=== PATIENT | male | born 1950 | race Caucasian/White ===

== ENCOUNTER 2019-05-11 16:21 | Outpatient (REF) | payer BC, MEDICARE, SELFPAY ==
[2019-05-11 21:08] LABS: HCT 42.4 % (40.0-50.0); HGB 14.6 g/dL (13.5-17.5); Mean Corp. HGB Concentration 34.4 g/dL (32.0-36.0); Mean Corpuscular Hemoglobin 32.2 pg (27.0-33.0); Mean Corpuscular Volume 93.6 fL (80-95); Mean Platelet Volume 12.3 fL (8.0-11.0); RBC 4.53 m/cumm (4.50-6.00); RBC Distribution Width 12.3 % (11.8-14.1); White Blood Cell Count 7.28 k/cumm (4.4-10.8)
[2019-05-11 21:28] LABS: ALT 26 U/L (12-78); AST 40 U/L (15-37); Albumin 3.9 g/dL (3.4-5.0); Alkaline Phosphatase 85 U/L (46-116); Anion Gap 8.1 mmol/L (3-11); BUN 19 mg/dL (7-18); Bilirubin, Total 0.7 mg/dL (0.2-1.0); CO2 27.9 mmol/L (21.0-32.0); CREATININE 1.16 mg/dL (0.70-1.30); Calcium 9.4 mg/dL (8.5-10.1); Chloride 105 mmol/L (98-107); Glucose 103 mg/dL (70-100); Potassium 4.2 mmol/L (3.5-5.1); Sodium 141 mmol/L (136-145); TSH (W/Ref FT4) 1.55 uIU/mL (0.358-3.74); Total Protein 7.1 g/dL (6.4-8.2)
[2019-05-11 22:44] LABS: Platelet Count 96 x1000/uL (130-400)
== END 2019-05-11 16:41 ==
LOC: NCHCN 16:21
PROVIDERS: PCP Family Medicine; Visit Provider Family Medicine
DX: E03.9 Hypothyroidism, unspecified (principal); D69.6 Thrombocytopenia, unspecified; K76.0 Fatty (change of) liver, not elsewhere classified
CPT/HCPCS: 80053; 85027; 84443

== ENCOUNTER 2019-07-25 15:56 | Outpatient (REF) | payer BC, MEDICARE, SELFPAY ==
[2019-07-25 21:42] LABS: HCT 40.1 % (40.0-50.0); HGB 13.8 g/dL (13.5-17.5); Mean Corp. HGB Concentration 34.4 g/dL (32.0-36.0); Mean Corpuscular Hemoglobin 32.5 pg (27.0-33.0); Mean Corpuscular Volume 94.6 fL (80-95); Mean Platelet Volume 12.6 fL (8.0-11.0); RBC 4.24 m/cumm (4.50-6.00); White Blood Cell Count 4.72 k/cumm (4.4-10.8)
[2019-07-25 22:15] LABS: Platelet Count 83 x1000/uL (130-400)
[2019-07-25 22:16] LABS: ALT 24 U/L (16-63); AST 38 U/L (15-37); Albumin 3.7 g/dL (3.4-5.0); Alkaline Phosphatase 98 U/L (46-116); BUN 23 mg/dL (7-18); Bilirubin, Total 0.6 mg/dL (0.2-1.0); CREATININE 1.17 mg/dL (0.70-1.30); Chloride 106 mmol/L (98-107); Glucose 106 mg/dL (70-100); Magnesium 1.9 mg/dL (1.8-2.4); Potassium 4.6 mmol/L (3.5-5.1); Sodium 141 mmol/L (136-145); TSH (W/Ref FT4) 1.35 uIU/mL (0.36-3.74)
[2019-07-27 10:26] LABS: PSA, Screening 1.2 ng/ml (0-4.5)
== END 2019-07-25 16:16 ==
LOC: NCHCN 15:56
PROVIDERS: PCP Family Medicine; Visit Provider Family Medicine
DX: Z00.00 Encounter for general adult medical examination without abnormal findings (principal); E03.9 Hypothyroidism, unspecified; E78.5 Hyperlipidemia, unspecified; I48.0 Paroxysmal atrial fibrillation; I10 Essential (primary) hypertension; Z12.5 Encounter for screening for malignant neoplasm of prostate
CPT/HCPCS: 80053; 84153; 85027; 83735; 84443

== ENCOUNTER 2020-03-06 09:48 | Outpatient (REF) | payer BC, MEDICARE, SELFPAY ==
[2020-03-06 21:14] LABS: HCT 46.2 % (40.0-50.0); HGB 15.2 g/dL (13.5-17.5); Mean Corp. HGB Concentration 32.9 g/dL (32.0-36.0); Mean Corpuscular Volume 91.1 fL (80-95); Mean Platelet Volume 13.3 fL (8.0-11.0); Platelet Count 143 x1000/uL (130-400); RBC 5.07 m/cumm (4.50-6.00); RBC Distribution Width 13.1 % (11.8-14.1)
[2020-03-06 21:24] LABS: INR 1.6 (0.9-1.1); Prothrombin Time 15.5 sec (9.3-11.0)
[2020-03-06 21:28] LABS: ALT 22 U/L (16-63); AST 39 U/L (15-37); Alkaline Phosphatase 101 U/L (46-116); Anion Gap 3.8 mmol/L (3-11); BUN 21 mg/dL (7-18); Bilirubin, Total 0.5 mg/dL (0.2-1.0); CO2 33.2 mmol/L (21.0-32.0); CREATININE 1.27 mg/dL (0.70-1.30); Calcium 9.3 mg/dL (8.5-10.1); Calculated LDL 92 mg/dL (<100); Chloride 104 mmol/L (98-107); Cholesterol 156 mg/dL (<200); Estimated GFR 56.57 (mL/min/1.73m2); Glucose 81 mg/dL (74-106); HDL Cholesterol 45 mg/dL (40-60); Potassium 4.3 mmol/L (3.5-5.1); Sodium 141 mmol/L (136-145); TSH (W/Ref FT4) 1.62 uIU/mL (0.36-3.74); Total Protein 7.5 g/dL (6.4-8.2); Triglyceride 98 mg/dL (<150)
== END 2020-03-06 10:08 ==
LOC: NCHCN 09:48
PROVIDERS: PCP Family Medicine; Visit Provider Family Medicine
DX: D69.6 Thrombocytopenia, unspecified (principal); I10 Essential (primary) hypertension; E03.9 Hypothyroidism, unspecified; E78.5 Hyperlipidemia, unspecified; Z51.81 Encounter for therapeutic drug level monitoring; N20.0 Calculus of kidney; K76.0 Fatty (change of) liver, not elsewhere classified; I48.0 Paroxysmal atrial fibrillation
CPT/HCPCS: 80053; 80061; 85027; 84443; 85610

== ENCOUNTER 2021-05-19 14:07 | Outpatient (REF) | payer MEDICARE, BC, SELFPAY ==
[2021-05-22 14:35] LABS: 2-Hydroxy Ethyl Flurazepam Not Detected ng/mL (Cutoff: 10); 3,4-methylenedioxyamphetamine Not Detected ng/mL (Cutoff: 100); 3,4-methylenedioxyethylampheta Not Detected ng/mL (Cutoff: 100); 3,4-methylenedioxymethamphetam Not Detected ng/mL (Cutoff: 100); 6-monoacetylmorphine Not Detected ng/mL (Cutoff: 25); Alpha-Hydroxy Midazolam Not Detected ng/mL (Cutoff: 10); Alpha-Hydroxy Triazolam Not Detected ng/mL (Cutoff: 10); Alpha-Hydroxyalprazolam Not Detected ng/mL (Cutoff: 10); Alpha-OH-alprazolam Glucuronid Not Detected ng/mL (Cutoff: 50); Alprazolam Not Detected ng/mL (Cutoff: 10); Amphetamine Not Detected ng/mL (Cutoff: 100); Barbiturates Negative ng/mL (Cutoff: 200); Buprenorphine Not Detected ng/mL (Cutoff: 5); Chlordiazepoxide Not Detected ng/mL (Cutoff: 10); Clobazam Not Detected ng/mL (Cutoff: 10); Clonazepam Not Detected ng/mL (Cutoff: 10); Cocaine Negative ng/mL (Cutoff: 150); Codeine Not Detected ng/mL (Cutoff: 25); Comment Normal; Creatinine, U 79.1 mg/dL; Diazepam Not Detected ng/mL (Cutoff: 10); Dihydrocodeine Not Detected ng/mL (Cutoff: 25); EDDP Not Detected ng/mL (Cutoff: 25); Ephedrine Not Detected ng/mL (Cutoff: 100); Fentanyl Not Detected ng/mL (Cutoff: 2); Flurazepam Not Detected ng/mL (Cutoff: 10); Hydrocodone Not Detected ng/mL (Cutoff: 25); Hydromorphone Not Detected ng/mL (Cutoff: 25); Hydromorphone-3-beta-glucuroni Not Detected ng/mL (Cutoff: 100); Lorazepam Not Detected ng/mL (Cutoff: 10); Lorazepam Glucuronide Not Detected ng/mL (Cutoff: 50); Meperidine Not Detected ng/mL (Cutoff: 25); Methadone Not Detected ng/mL (Cutoff: 25); Methamphetamine Not Detected ng/mL (Cutoff:100); Methylphenidate Not Detected ng/mL (Cutoff: 20); Midazolam Not Detected ng/mL (Cutoff: 10); Morphine Not Detected ng/mL (Cutoff: 25); N-Desmethylclobazam Not Detected ng/mL (Cutoff: 200); N-desmethyltapentadol Not Detected ng/mL (Cutoff: 50); Naloxone Not Detected ng/mL (Cutoff: 25); Norbuprenorphine Not Detected ng/mL (Cutoff: 5); Norfentanyl Not Detected ng/mL (Cutoff: 2); Norhydrocodone Not Detected ng/mL (Cutoff: 25); Normeperidine Not Detected ng/mL (Cutoff: 25); Noroxycodone Present ng/mL (Cutoff: 25); Noroxymorphone Not Detected ng/mL (Cutoff: 25); O-desmethyltramadol Not Detected ng/mL (Cutoff: 25); Oxazepam Glucuronide Not Detected ng/mL (Cutoff: 50); Phencyclidine (PCP) Not Detected ng/mL (Cutoff: 20); Phentermine Not Detected ng/mL (Cutoff: 100); Prazepam Not Detected ng/mL (Cutoff: 10); Propoxyphene Not Detected ng/mL (Cutoff: 25); Pseudoephedrine Not Detected ng/mL (Cutoff: 100); Ritalinic Acid Not Detected ng/mL (Cutoff: 100); Specific Gravity 1.014; Tapentadol Not Detected ng/mL (Cutoff: 25); Temazepam Not Detected ng/mL (Cutoff: 10); Temazepam Glucuronide Not Detected ng/mL (Cutoff: 50); Tetrahydrocannabinol Negative ng/mL (Cutoff: 50); Tramadol Not Detected ng/mL (Cutoff: 25); Triazolam Not Detected ng/mL (Cutoff: 10); Zolpidem Phenyl-4-Carboxy acid Not Detected ng/mL (Cutoff: 10); pH 6.5
== END 2021-05-19 14:08 | disposition home or self-care (01) ==
LOC: LBN 14:07
PROVIDERS: PCP Family Medicine; Visit Provider Nurse Practitioner Family
DX: Z79.899 Other long term (current) drug therapy
CPT/HCPCS: 80307; 80347; 80364

== ENCOUNTER 2021-07-25 20:35 | Outpatient (REF) | payer MEDICARE, BC, SELFPAY ==
[2021-07-25 19:42] LABS: ESR 8 mm/hr (0-20)
[2021-07-25 20:08] LABS: Anion Gap 6.8 mmol/L (3-11); BUN 23 mg/dL (7-18); C-Reactive Protein 0.18 mg/dL (0.0-0.3); CO2 28.2 mmol/L (21.0-32.0); CREATININE 1.2 mg/dL (0.70-1.30); Calcium 9.4 mg/dL (8.5-10.1); Chloride 108 mmol/L (98-107); FREE T4 1.07 ng/dL (0.76-1.46); Glucose 75 mg/dL (74-106); Potassium 4.5 mmol/L (3.5-5.1); Sodium 143 mmol/L (136-145); TSH 1.81 uIU/mL (0.36-3.74)
[2021-07-27 15:42] LABS: COVID-19 RT-PCR UVMMC Result Negative (Negative)
== END 2021-07-25 20:36 | disposition home or self-care (01) ==
LOC: NCHCN 20:35
PROVIDERS: PCP Family Medicine; Visit Provider Family Medicine
DX: E07.9 Disorder of thyroid, unspecified (principal); D69.6 Thrombocytopenia, unspecified; I10 Essential (primary) hypertension; I48.0 Paroxysmal atrial fibrillation; Z20.822 Contact with and (suspected) exposure to COVID-19
CPT/HCPCS: 80048; 85652; U0003; 84439; 84443; 84481; 86140

== ENCOUNTER 2021-12-08 19:17 | Outpatient (REF) | payer MEDICARE, BC, SELFPAY ==
--- NOTE | 2021-12-08 18:10 | SKI_PTH ---
PATIENT: Malik Machado LOC: [facility] U#:[id number] AGE/SX: 71/M ROOM: RE12/08/[address]: Malik Deleon : 1950 BED: DIS: 12/08/2021 SPEC #: [id number] RECD: 12/09/21 12:34 STATUS: FAMILIA REQ #: [id number] JIMI: 12/08/21 18:[address]: Malik Deleon DEPT: Surgical Specimen RECD BY: Darleen Sullivan ENTERED: 12/09/21 12:35 SP TYPE: ASUNCION OTHR DR: Radha Mckeon V Tissues: 1 - SKIN BIOPSY(SHAVE/PUNCH) Procedures: SKIN LEVEL 4 Comments: [id number]
== END 2021-12-08 19:18 | disposition home or self-care (01) ==
LOC: NCHCN 19:17
PROVIDERS: PCP Family Medicine; Visit Provider Family Medicine
DX: L82.1 Other seborrheic keratosis (principal)
CPT/HCPCS: 88305

== ENCOUNTER 2022-03-12 13:18 | Outpatient (REF) | payer MEDICARE, BC, SELFPAY ==
[2022-03-12 19:38] LABS: TSH (W/Ref FT4) 1.14 uIU/mL (0.36-3.74)
[2022-03-13 12:46] LABS: COVID-19 RT-PCR UVMMC Result Negative (Negative)
== END 2022-03-12 13:19 | disposition home or self-care (01) ==
LOC: NCHCN 13:18
PROVIDERS: PCP Family Medicine; Visit Provider Family Medicine
DX: E07.9 Disorder of thyroid, unspecified (principal); R19.7 Diarrhea, unspecified; R11.2 Nausea with vomiting, unspecified; Z20.822 Contact with and (suspected) exposure to COVID-19
CPT/HCPCS: U0003; U0005; 84443

== ENCOUNTER 2022-03-12 15:14 | Outpatient (REF) | payer MEDICARE, BC, SELFPAY ==
[2022-03-12 19:08] LABS: Abs Immature Grans 0.02 10^3/uL (0.0-0.06); Absolute Basophil Count 0.01 10^3/uL (0.0-0.2); Absolute Eosinophil Count 0.12 10^3/uL (0.0-0.7); Absolute Lymphocyte Count 0.56 10^3/uL (1.2-3.4); Absolute Monocyte Count 0.47 10^3/uL (0.1-0.8); Absolute Neutrophil Count 3.53 10^3/uL (1.2-6.7); Basophils % 0.2; Eosinophils % 2.5; HCT 49.2 % (40.0-50.0); Immature Grans % 0.4; Lymphocytes % 11.9; MCH 30.9 pg (27.0-33.0); MCHC 32.5 % (32.0-36.0); MCV 95 fL (80-95); MPV 12.6 fL (8.0-11.0); RBC 5.18 10^6/uL (4.36-5.78); RDW 12.3 % (11.8-14.1); RDW-SD 42.9 fL; WBC 4.71 10^3/uL (4.4-10.8)
[2022-03-12 19:28] LABS: BUN 27 mg/dL (7-18); CREATININE 1.3 mg/dL (0.70-1.30); Calcium 8.9 mg/dL (8.5-10.1); Chloride 106 mmol/L (98-107); Estimated GFR 54.73 (mL/min/1.73m2); Glucose 86 mg/dL (74-106); Potassium 4.5 mmol/L (3.5-5.1); Sodium 140 mmol/L (136-145)
[2022-03-12 19:50] LABS: Platelet Count 80 10^3/uL (130-400)
== END 2022-03-12 15:15 | disposition home or self-care (01) ==
LOC: LBN 15:14
PROVIDERS: PCP Family Medicine; Visit Provider Orthopaedic Surgery
DX: M54.12 Radiculopathy, cervical region (principal); M79.609 Pain in unspecified limb
CPT/HCPCS: 80048; 85025; 85610

== ENCOUNTER 2022-03-13 09:28 | Outpatient (CLI) | payer MEDICARE, BC, SELFPAY ==
[2022-03-13 14:22] LABS: INR 1.1 (0.9-1.1); Prothrombin Time 10.8 sec (9.3-11.0)
== END 2022-03-13 09:29 | disposition home or self-care (01) ==
LOC: LBO 09:33
PROVIDERS: PCP Family Medicine; Visit Provider Orthopaedic Surgery
DX: M79.609 Pain in unspecified limb (principal); M54.12 Radiculopathy, cervical region
CPT/HCPCS: 85610

== ENCOUNTER 2022-04-02 14:49 | Outpatient (REF) | payer MEDICARE, BC, SELFPAY ==
[2022-04-06 16:19] LABS: Helicobacter pylori Ag, Feces Negative (Negative)
== END 2022-04-02 14:50 | disposition home or self-care (01) ==
LOC: LBN 14:49
PROVIDERS: PCP Family Medicine; Visit Provider Internal Medicine Hematology
DX: D69.6 Thrombocytopenia, unspecified (principal); R19.7 Diarrhea, unspecified
CPT/HCPCS: 87338

== ENCOUNTER 2022-04-14 13:06 | Outpatient (CLI) | payer MEDICARE, BC, SELFPAY ==
[2022-04-14 13:08] LABS: Abs Immature Grans 0.05 10^3/uL (0.0-0.06); Absolute Basophil Count 0.01 10^3/uL (0.0-0.2); Basophils % 0.1; HCT 46.8 % (40.0-50.0); HGB 15.9 g/dL (13.5-17.5); Immature Grans % 0.4; Lymphocytes % 4.6; MCH 30.7 pg (27.0-33.0); MCV 90 fL (80-95); MPV 12.2 fL (8.0-11.0); Monocytes % 10.8; Neutrophils % 84.1; RBC 5.18 10^6/uL (4.36-5.78); RDW 12.2 % (11.8-14.1); RDW-SD 40.6 fL; WBC 13.11 10^3/uL (4.4-10.8)
[2022-04-14 13:09] LABS: Absolute Monocyte Count 1.42 10^3/uL (0.1-0.8); Absolute Neutrophil Count 11.03 10^3/uL (1.2-6.7)
[2022-04-14 13:28] LABS: Diff Comment PLT Morph Reviewed; Platelet Count 97 10^3/uL (130-400)
== END 2022-04-14 13:07 | disposition home or self-care (01) ==
LOC: LBO 13:07
PROVIDERS: PCP Family Medicine; Visit Provider Internal Medicine Hematology
DX: D69.6 Thrombocytopenia, unspecified (principal)
CPT/HCPCS: 36415; 85025

== ENCOUNTER 2022-04-17 14:06 | Outpatient (CLI) | payer MEDICARE, BC, SELFPAY ==
[2022-04-17 11:47] LABS: Abs Immature Grans 0.03 10^3/uL (0.0-0.06); Absolute Eosinophil Count 0.12 10^3/uL (0.0-0.7); Absolute Lymphocyte Count 0.89 10^3/uL (1.2-3.4); Absolute Monocyte Count 1.19 10^3/uL (0.1-0.8); Absolute Neutrophil Count 8.01 10^3/uL (1.2-6.7); Eosinophils % 1.2; HCT 46.8 % (40.0-50.0); HGB 15.5 g/dL (13.5-17.5); Immature Grans % 0.3; Lymphocytes % 8.7; MCH 30.5 pg (27.0-33.0); MCHC 33.1 % (32.0-36.0); MCV 92 fL (80-95); MPV 12.1 fL (8.0-11.0); Monocytes % 11.6; Neutrophils % 78.2; RBC 5.08 10^6/uL (4.36-5.78); RDW 12.4 % (11.8-14.1); RDW-SD 42.2 fL; WBC 10.24 10^3/uL (4.4-10.8)
[2022-04-17 11:50] LABS: Platelet Count 70 10^3/uL (130-400)
== END 2022-04-17 14:07 | disposition home or self-care (01) ==
LOC: LBO 14:10
PROVIDERS: PCP Family Medicine; Visit Provider Internal Medicine Hematology
DX: D69.6 Thrombocytopenia, unspecified (principal)
CPT/HCPCS: 36415; 85025

== ENCOUNTER 2022-05-12 18:50 | Outpatient (REF) | payer MEDICARE, BC, SELFPAY ==
[2022-05-14 10:54] LABS: COVID-19 RT-PCR UVMMC Result Negative (Negative)
== END 2022-05-12 18:51 | disposition home or self-care (01) ==
LOC: NCHCN 18:50
PROVIDERS: PCP Family Medicine; Visit Provider Family Medicine
DX: Z20.822 Contact with and (suspected) exposure to COVID-19 (principal); Z01.818 Encounter for other preprocedural examination
CPT/HCPCS: U0003

== ENCOUNTER 2022-05-18 02:08 | Outpatient (CLI) | payer MEDICARE, BC, SELFPAY ==
[2022-05-18 09:17] LABS: Abs Immature Grans 0.06 10^3/uL (0.0-0.06); Absolute Basophil Count 0.01 10^3/uL (0.0-0.2); Absolute Lymphocyte Count 0.45 10^3/uL (1.2-3.4); Absolute Monocyte Count 0.64 10^3/uL (0.1-0.8); Absolute Neutrophil Count 9.24 10^3/uL (1.2-6.7); Basophils % 0.1; HCT 48.1 % (40.0-50.0); HGB 16.4 g/dL (13.5-17.5); Immature Grans % 0.6; Lymphocytes % 4.3; MCH 30.9 pg (27.0-33.0); MCHC 34.1 % (32.0-36.0); MCV 91 fL (80-95); MPV 12.1 fL (8.0-11.0); Monocytes % 6.2; Neutrophils % 88.8; RBC 5.31 10^6/uL (4.36-5.78); RDW 12.3 % (11.8-14.1); RDW-SD 40.7 fL
[2022-05-18 10:05] LABS: Platelet Count 92 10^3/uL (130-400)
== END 2022-05-18 02:09 | disposition home or self-care (01) ==
LOC: LBO 02:08
PROVIDERS: PCP Family Medicine; Visit Provider Internal Medicine Hematology
DX: D69.6 Thrombocytopenia, unspecified (principal)
CPT/HCPCS: 36415; 85025

== ENCOUNTER 2022-10-05 22:07 | Outpatient (REF) | payer MEDICARE, BC, SELFPAY ==
[2022-10-07 16:52] LABS: COVID-19 RT-PCR UVMMC Result Negative (Negative)
== END 2022-10-05 22:08 | disposition home or self-care (01) ==
LOC: LBN 22:07
PROVIDERS: PCP Family Medicine; Visit Provider Nurse Practitioner Family
DX: Z20.822 Contact with and (suspected) exposure to COVID-19 (principal); J06.9 Acute upper respiratory infection, unspecified
CPT/HCPCS: U0003

== ENCOUNTER 2023-01-18 15:59 | Outpatient (REF) | payer MEDICARE, BC, SELFPAY ==
[2023-01-18 21:08] LABS: Abs Immature Grans 0.02 10^3/uL (0.0-0.06); Absolute Basophil Count 0.05 10^3/uL (0.0-0.2); Absolute Lymphocyte Count 0.79 10^3/uL (1.2-3.4); Absolute Monocyte Count 0.65 10^3/uL (0.1-0.8); Absolute Neutrophil Count 5.82 10^3/uL (1.2-6.7); Basophils % 0.7; Eosinophils % 1.3; HCT 42.8 % (40.0-50.0); HGB 14.3 g/dL (13.5-17.5); Immature Grans % 0.3; Lymphocytes % 10.6; MCH 30.4 pg (27.0-33.0); MCHC 33.4 % (32.0-36.0); MCV 91 fL (80-95); MPV 12.3 fL (8.0-11.0); Monocytes % 8.7; Neutrophils % 78.4; Platelet Count 116 10^3/uL (130-400); RDW 11.9 % (11.8-14.1); RDW-SD 39.9 fL; WBC 7.43 10^3/uL (4.4-10.8)
[2023-01-18 21:15] LABS: Iron 72 ug/dL (65-175); Total Iron Binding Capacity 240 ug/dL (250-450); Transferrin Sat 30 % (20-55)
== END 2023-01-18 16:00 | disposition home or self-care (01) ==
LOC: LBN 15:59
PROVIDERS: PCP Family Medicine; Visit Provider Nurse Practitioner Family
DX: R19.4 Change in bowel habit (principal); D69.6 Thrombocytopenia, unspecified; I48.91 Unspecified atrial fibrillation; Z79.01 Long term (current) use of anticoagulants
CPT/HCPCS: 83540; 83550; 85025

== ENCOUNTER 2023-01-19 17:42 | Outpatient (REF) | payer MEDICARE, BC, SELFPAY | END 2023-01-19 17:43 | disposition home or self-care (01) | LOC: LBN 17:42 | PROVIDERS: PCP Family Medicine; Visit Provider Nurse Practitioner Family | DX: R19.4 Change in bowel habit (principal) | CPT/HCPCS: 87493; 87505; 82272; 83630 ==

== ENCOUNTER 2023-02-19 15:12 | Outpatient (REF) | payer MEDICARE, BC, SELFPAY ==
--- OUTSIDE RECORDS SUMMARY | 2023-02-19 15:14 | XMS_ITS | CCD ---
Author Name Unknown Address [address] [place] [address] [id number] Organization Unknown Address [address] [place] [address] [phone] Care Team Providers Care Sand Drier Name Role Phone CHARIS WORKMAN Attending Physician [phone] CHARIS WORKMAN Rounding (Secondary) Physician [phone] Vital Signs Unknown or Not Available. Allergies Allergy Code Allergy Type Reaction Status AMBIEN 498091 Drug allergy ALTERED MENTAL STATUS A ctive AMITRIPTYLINE HCL 704 Drug allergy PALPITATIONS Act north Procedures Unknown or Not Available. History of Immunizations Unknown or Not Available. Problems Problem Code Start Date Resolved Date Status High cholesterol 06005269 07/31/2022 Resolved GERD 596632020 07/31/2022 Resolved Hypothyroidism 86619240 07/31/2022 Resolved BPH 367290533 07/31/2022 Resolved Migraine 80038314 07/31/2022 Resolved AFIB 35695818 07/31/2022 Resolved Thrombocytopenia 260275971 07/31/2022 Resolved Results Unknown or Not Available. Active Medications Medication Code Dose Units Frequency Route Modificatio n Start Date/Time Baclofen 10MG Oral Tablet 863399 10 MILLIGRAMS NEEDED, DAILY ORAL 10/28/2017 18:36 Prescription Detail TAKE 10 MILLIGRAMS ORAL NEEDED, DAILY Metoprolol Succinate 50MG Oral Tablet, Extended Release [id number] 150 MILLIGRAMS DAILY ORAL 7 18:36 Prescription Detail TAKE 150 MILLIGRAMS ORAL DAILY OMEPRAZOLE 20MG ORAL TABLET, DELAYE 0 20 MILLIGRAMS TWICE A DAY ORAL 017 18:36 Prescription Detail TAKE 20 MILLIGRAMS ORAL TWICE A DAY VERAPAMIL ER 120 MG TABLET 0 120 MILLIGRAMS BEDTIME ORAL 10/28 18:36 Prescription Detail TAKE 120 MILLIGRAMS ORAL BEDTIME Synthroid 100MCG Oral Tablet 860001 100 MICROGRAM Q7AM BY MOUTH 08/27/2016 12:39 Prescription Detail TAKE 100 MICROGRAM BY MOUTH Q7AM Medications Administered During Visit Unknown or Not Available. Encounters Encounter Diagnosis Diagnosis Code Start Date Refusal of treatment by patient [id number] 05/22/2022 Social History Smoking Status Code Start Date End Date Never smoker [id number] Patient Decision Aids Unknown or Not Available. Discharge Instructions You were admitted to [facility] on 05/22/2022 00:00 with a principal diagnosis of Procedure and treatment not carried out because of patient's decision for other reasons You were discharged from [facility] on 05/22/2022 10:22 Should you have any questions prior to discharge, please contact a member of your healthcare team. If you have left the hospital and have any questions, please contact your primary care physician. Chief Complaint and Reason For Visit Unknown or Not Available. Function Status Unknown or Not Available. Plan of Care Unknown or Not Available. Referral/Transition of Care Unknown or Not Available.
--- OUTSIDE RECORDS SUMMARY | 2023-02-19 15:14 | XMS_ITS | CCD ---
Author Name Unknown Address [address] [place] [address] [phone] Organization Unknown Address [address] [place] [address] [phone] Care Team Providers Care Ase Master Mechanic Name Role Phone WILBERTOOVIDIO ROSENBERG Attending Physician [phone] Vital Signs Unknown or Not Available. Allergies Allergy Code Allergy Type Reaction Status AMBIEN 634125 Drug allergy ALTERED MENTAL STATUS A ctive AMITRIPTYLINE HCL 704 Drug allergy PALPITATIONS Act north Procedures Unknown or Not Available. History of Immunizations Unknown or Not Available. Problems Problem Code Start Date Resolved Date Status High cholesterol 76437858 07/31/2022 Resolved GERD 152812756 07/31/2022 Resolved Hypothyroidism 88526248 07/31/2022 Resolved BPH 276061403 07/31/2022 Resolved Migraine 96461819 07/31/2022 Resolved AFIB 59316016 07/31/2022 Resolved Thrombocytopenia 756544202 07/31/2022 Resolved Results Unknown or Not Available. Active Medications Medication Code Dose Units Frequency Route Modificatio n Start Date/Time Baclofen 10MG Oral Tablet 691027 10 MILLIGRAMS NEEDED, DAILY ORAL 10/28/2017 18:36 Prescription Detail TAKE 10 MILLIGRAMS ORAL NEEDED, DAILY Metoprolol Succinate 50MG Oral Tablet, Extended Release [id number] 150 MILLIGRAMS DAILY ORAL 7 18:36 Prescription Detail TAKE 150 MILLIGRAMS ORAL DAILY OMEPRAZOLE 20MG ORAL TABLET, DELAYE 0 20 MILLIGRAMS TWICE A DAY ORAL 017 18:36 Prescription Detail TAKE 20 MILLIGRAMS ORAL TWICE A DAY VERAPAMIL ER 120 MG TABLET 0 120 MILLIGRAMS BEDTIME ORAL 10/28 18:36 Prescription Detail TAKE 120 MILLIGRAMS ORAL BEDTIME Synthroid 100MCG Oral Tablet 532031 100 MICROGRAM Q7AM BY MOUTH 08/27/2016 12:39 Prescription Detail TAKE 100 MICROGRAM BY MOUTH Q7AM Medications Administered During Visit Unknown or Not Available. Encounters Encounter Diagnosis Diagnosis Code Start Date Pain in right finger(s) G01454 12/11/19 Social History Smoking Status Code Start Date End Date Never smoker [id number] Patient Decision Aids Unknown or Not Available. Discharge Instructions You were admitted to [facility] on 12/11/2021 12:49 with a principal diagnosis of Pain in right finger(s) You were discharged from [facility] on 12/11/2021 12:49 Should you have any questions prior to [...]
--- OUTSIDE RECORDS SUMMARY | 2023-02-19 15:15 | XMS_ITS | CCD ---
Author Name Unknown Address [address] [place] [address] [phone] Organization Unknown Address [address] [place] [address] [phone] Care Team Providers Care Mortgage Loan Processor Name Role Phone GEORGIE PUTNAM Attending Physician [phone] GEORGIE PUTNAM Er Physician 9 [phone] LINDSAY Otoole Registered Nurse [phone] Vital Signs Vital Sign Value Unit Date/Time Recent/Initial ? BMI (Body Mass Index) 24.41 kg/m^2 07/31/2022 23: 00 Initial VS Weight Measured 175 lbs 07/31/2022 23:00 Ini tial VS Height 71 in 07/31/2022 23:00 Initial VS BSA (Body Surface Area) 1.99 m^2 07/31/2022 2 3:00 Initial VS BP Systolic 174 mmHg 07/31/2022 23:00 Initial VS BP Diastolic 93 mmHg 07/31/2022 23:00 Initia l VS Respiratory Rate 18 bpm 07/31/2022 23:00 In itial VS Heart Rate 60 bpm 07/31/2022 23:00 Initial VS O2 % BldC Oximetry 96 % 07/31/2022 23:00 Initial VS Body Temperature 35 degrees 07/31/2022 23:00 In itial VS BP Systolic 167 mmHg 08/01/2022 01:01 Most Re cent VS BP Diastolic 81 mmHg 08/01/2022 01:01 Most R ecent VS Respiratory Rate 18 bpm 08/01/2022 01:[address] Recent VS Heart Rate 64 bpm 08/01/2022 01:01 Most Rec ent VS O2 % BldC Oximetry 99 % 08/01/2022 01:01 Most Recent VS Allergies Allergy Code Allergy Type Reaction Status AMBIEN 096349 Drug allergy ALTERED MENTAL STATUS A ctive AMITRIPTYLINE HCL 704 Drug allergy PALPITATIONS Act north Procedures Unknown or Not Available. History of Immunizations Unknown or Not Available. Problems Problem Code Start Date Resolved Date Status High cholesterol 89636345 07/31/2022 Resolved GERD 742832621 07/31/2022 Resolved Hypothyroidism 85141855 07/31/2022 Resolved BPH 108875678 07/31/2022 Resolved Migraine 42373104 07/31/2022 Resolved AFIB 69217275 07/31/2022 Resolved Thrombocytopenia 672710723 07/31/2022 Resolved Results CBC W/ DIFFERENTIAL* - Colle ct Date/Time: 07/31/2022 23:22 Test Name Code Test Result Test Units Test Ref Rang e WBC 6690-2 6.73 th/cmm L=5.00 H=10.00 NEUT % 68.5 % L=40.0 H=80.0 LYMPH % 18.3 % L=10.0 H=50.0 MONO % 31948-4 10.3 % L=2.0 H=12.0 EOS % 2.2 % L=0.0 H=8.0 BASO % 0.6 % L=0.0 H=3.0 IG % 2514-8 0.1 % L=0.0 H=1.1 NRBC % 78081-4 0.0 % L=0.0 H=0.0 NEUT abs count 751-8 4.6 th/cmm L=1.6 H=8. 4 LYMPH abs count 731-0 1.2 th/cmm L=1.5 H=4 .0 MONO abs count 742-7 0.7 th/cmm L=0.2 H=1. 0 EOS abs count 711-2 0.2 th/cmm L=0.0 H=0.5 BASO abs count 704-7 0.0 th/cmm L=0.0 H=0. 2 IG abs count 26203-4 0.0 th/cmm L=0.0 H=0.1 NRBC abs count 00364-1 0.0 mil/cmm L=0.0 H=0. 0 RBC 789-8 4.84 mil/cmm L=4.30 H=6.20 HEMOGLOBIN 718-7 15.1 gm/dL L=13.0 H=17.0 HEMATOCRIT 4544-3 45 % L=45 H=52 MCV 787-2 93 fL L=82 H=92 MCH 785-6 31.2 pg L=27.0 H=31.0 MCHC 786-4 33.7 % L=32.0 H=36.0 RDW-SD 788-0 41.5 fL L=39.0 H=49.0 PLATELET COUNT 777-3 110 th/cmm L=150 H=45 0 PT PROTHROMBIN TIME* - Colle ct Date/Time: 07/31/2022 23:22 Test Name Code Test Result Test Units Test Ref Rang e PROTIME 5902-2 11.0 seconds L=9.3 H=11.4 INR 26352-9 1.11 L=2.00 H=3.00 PTT PARTIAL THROMBOPLASTIN T JEISON* - Collect Date/Time: 07/31/2022 23:22 Test Name Code Test Result Test Units Test Ref Rang e PTT 28845-7 28.5 seconds L=24.5 H=32.8 Active Medications Medications Administered During Visit Medication Dose Units Frequency Route Date/Time of Last Dose OXYMETAZOLINE NASAL SPRAY 0.05% 15ML 2 SPRAYS X1 NASAL EACH NOSTRIL 23:10 Encounters Encounter Diagnosis Diagnosis Code Start Date Epistaxis R040 07/31/2022 Social History Smoking Status Code Start Date End Date Never smoker [id number] Patient Decision Aids Unknown or Not Available. Discharge Instructions You were admitted to [facility] on 07/31/2022 22:52 with a principal diagnosis of Epistaxis You had the following tests done:CBC W/ DIFFERENTIAL*PT PROTHROMBIN TIME*PTT PARTIAL THROMBOPLASTIN TIME* You were discharged from [facility] on 08/01/2022 01:02 Should you have any questions prior to discharge, please contact a member of your healthcare team. If you have left the hospital and have any questions, please contact your primary care physician. Chief Complaint and Reason For Visit Chief Complaint Date of Onset BLOODY NOSE Function Status Unknown or Not Available. Plan of Care Unknown or Not Available. Referral/Transition of Care Unknown or Not Available.
--- OUTSIDE RECORDS SUMMARY | 2023-02-19 15:15 | XMS_ITS | CCD ---
Author Name Unknown Address [address] [place] [address] [phone] Organization Unknown Address [address] [place] [address] [phone] Care Team Providers Care Instrumentation Designer Name Role Phone CHARIS WORKMAN Attending Physician [phone] CHARIS WORKMAN Rounding (Secondary) Physician [phone] Vital Signs Unknown or Not Available. Allergies Allergy Code Allergy Type Reaction Status AMBIEN 905449 Drug allergy ALTERED MENTAL STATUS A ctive AMITRIPTYLINE HCL 704 Drug allergy PALPITATIONS Act north Procedures Unknown or Not Available. History of Immunizations Unknown or Not Available. Problems Problem Code Start Date Resolved Date Status High cholesterol 86798194 07/31/2022 Resolved GERD 090747872 07/31/2022 Resolved Hypothyroidism 96638387 07/31/2022 Resolved BPH 384253193 07/31/2022 Resolved Migraine 91947088 07/31/2022 Resolved AFIB 19642550 07/31/2022 Resolved Thrombocytopenia 863547913 07/31/2022 Resolved Results Unknown or Not Available. Active Medications Medication Code Dose Units Frequency Route Modificatio n Start Date/Time Baclofen 10MG Oral Tablet 083707 10 MILLIGRAMS NEEDED, DAILY ORAL 10/28/2017 18:36 Prescription Detail TAKE 10 MILLIGRAMS ORAL NEEDED, DAILY Metoprolol Succinate 50MG Oral Tablet, Extended Release [id number] 150 MILLIGRAMS DAILY ORAL 7 18:36 Prescription Detail TAKE 150 MILLIGRAMS ORAL DAILY OMEPRAZOLE 20MG ORAL TABLET, DELAYE 0 20 MILLIGRAMS TWICE A DAY ORAL 017 18:36 Prescription Detail TAKE 20 MILLIGRAMS ORAL TWICE A DAY VERAPAMIL ER 120 MG TABLET 0 120 MILLIGRAMS BEDTIME ORAL 10/28 18:36 Prescription Detail TAKE 120 MILLIGRAMS ORAL BEDTIME Synthroid 100MCG Oral Tablet 173045 100 MICROGRAM Q7AM BY MOUTH 08/27/2016 12:39 Prescription Detail TAKE 100 MICROGRAM BY MOUTH Q7AM Medications Administered During Visit Unknown or Not Available. Encounters Encounter Diagnosis Diagnosis Code Start Date Chronic migraine without aur a, intractable, without status migrainosus M82750 01/16/2022 Social History Smoking Status Code Start Date End Date Never smoker [id number] Patient Decision Aids Unknown or Not Available. Discharge Instructions You were admitted to [facility] on 01/16/2022 08:03 with a principal diagnosis of Chronic migraine without aura, intractable, without status migrainosus You were discharged from [facility] on 01/16/2022 00:00 Should you have any questions prior to [...]
--- OUTSIDE RECORDS SUMMARY | 2023-02-19 15:15 | XMS_ITS | CCD ---
Author Name Unknown Address [address] [place] [address] [id number] Organization Unknown Address [address] [place] [address] [phone] Care Team Providers Care Family And Marriage Counsellor Name Role Phone CHARIS WORKMAN Attending Physician [phone] CHARIS WORKMAN Rounding (Secondary) Physician [phone] Vital Signs Unknown or Not Available. Allergies Allergy Code Allergy Type Reaction Status AURY 082612 Drug allergy ALTERED MENTAL STATUS A ctive AMITRIPTYLINE HCL 704 Drug allergy PALPITATIONS Act north Procedures Unknown or Not Available. History of Immunizations Unknown or Not Available. Problems Unknown or Not Available. Results Unknown or Not Available. Active Medications Medication Code Dose Units Frequency Route Modificatio n Start Date/Time Baclofen 10MG Oral Tablet 723030 10 MILLIGRAMS NEEDED, DAILY ORAL 10/28/2017 18:36 Prescription Detail TAKE 10 MILLIGRAMS ORAL NEEDED, DAILY Metoprolol Succinate 50MG Oral Tablet, Extended Release [id number] 150 MILLIGRAMS DAILY ORAL 7 18:36 Prescription Detail TAKE 150 MILLIGRAMS ORAL DAILY OMEPRAZOLE 20MG ORAL TABLET, DELAYE 0 20 MILLIGRAMS TWICE A DAY ORAL 017 18:36 Prescription Detail TAKE 20 MILLIGRAMS ORAL TWICE A DAY VERAPAMIL ER 120 MG TABLET 0 120 MILLIGRAMS BEDTIME ORAL 10/28 18:36 Prescription Detail TAKE 120 MILLIGRAMS ORAL BEDTIME Synthroid 100MCG Oral Tablet 084126 100 MICROGRAM Q7AM BY MOUTH 08/27/2016 12:39 Prescription Detail TAKE 100 MICROGRAM BY MOUTH Q7AM Medications Administered During Visit Unknown or Not Available. Encounters Encounter Diagnosis Diagnosis Code Start Date Chronic intractable migraine without aura 378455 [id number] 11/06/2022 Social History Smoking Status Code Start Date End Date Never smoker 754777883 Patient Decision Aids Unknown or Not Available. Discharge Instructions You were admitted to [facility] on 11/06/2022 11:01 with a principal diagnosis of Chronic migraine without aura, intractable, without status migrainosus You were discharged from [facility] on 11/06/2022 00:00 Should you have any questions prior [...]
--- OUTSIDE RECORDS SUMMARY | 2023-02-19 15:15 | XMS_ITS | CCD ---
Author Name Unknown Address [address] [place] [address] [phone] Organization Unknown Address [address] [place] [address] [phone] Care Team Providers Care Report Checker Name Role Phone NIKOLAY HARTLEY Attending Physician [phone] NIKOLAY HARTLEY Er Physician [phone] QUIN Huerta Registered Nurse [phone] Vital Signs Vital Sign Value Unit Date/Time Recent/Initial ? BMI (Body Mass Index) 22.87 kg/m^2 06/17/2022 01: 48 Initial VS Weight Measured 164 lbs 06/17/2022 01:48 Ini tial VS Height 71 in 06/17/2022 01:48 Initial VS BSA (Body Surface Area) 1.93 m^2 06/17/2022 0 1:48 Initial VS BP Systolic 183 mmHg 06/17/2022 01:48 Initial VS BP Diastolic 94 mmHg 06/17/2022 01:48 Initia l VS Respiratory Rate 18 bpm 06/17/2022 01:48 In itial VS Heart Rate 65 bpm 06/17/2022 01:48 Initial VS O2 % BldC Oximetry 98 % 06/17/2022 01:48 Initial VS Body Temperature 35.9 degrees 06/17/2022 01:48 In itial VS Allergies Allergy Code Allergy Type Reaction Status AMBIEN 370491 Drug allergy ALTERED MENTAL STATUS A ctive AMITRIPTYLINE HCL 704 Drug allergy PALPITATIONS Act north Procedures Unknown or Not Available. History of Immunizations Unknown or Not Available. Problems Problem Code Start Date Resolved Date Status High cholesterol 22485918 07/31/2022 Resolved GERD 909247937 07/31/2022 Resolved Hypothyroidism 68257529 07/31/2022 Resolved BPH 587362117 07/31/2022 Resolved Migraine 74641818 07/31/2022 Resolved AFIB 98528420 07/31/2022 Resolved Thrombocytopenia 847905390 07/31/2022 Resolved Results CBC W/ DIFFERENTIAL* - [facility] ct Date/Time: 06/17/2022 01:30 Test Name Code Test Result Test Units Test Ref Rang e WBC 6690-2 6.36 th/cmm L=5.00 H=10.00 NEUT % 62.6 % L=40.0 H=80.0 LYMPH % 19.5 % L=10.0 H=50.0 MONO % 61808-3 14.3 % L=2.0 H=12.0 EOS % 2.5 % L=0.0 H=8.0 BASO % 0.8 % L=0.0 H=3.0 IG % 2514-8 0.3 % L=0.0 H=1.1 NRBC % 59762-8 0.0 % L=0.0 H=0.0 NEUT abs count 751-8 4.0 th/cmm L=1.6 H=8. 4 LYMPH abs count 731-0 1.2 th/cmm L=1.5 H=4 .0 MONO abs count 742-7 0.9 th/cmm L=0.2 H=1. 0 EOS abs count 711-2 0.2 th/cmm L=0.0 H=0.5 BASO abs count 704-7 0.1 th/cmm L=0.0 H=0. 2 IG abs count 16119-1 0.0 th/cmm L=0.0 H=0.1 NRBC abs count 11685-7 0.0 mil/cmm L=0.0 H=0. 0 RBC 789-8 4.71 mil/cmm L=4.30 H=6.20 HEMOGLOBIN 718-7 14.8 gm/dL L=13.0 H=17.0 HEMATOCRIT 4544-3 44 % L=45 H=52 MCV 787-2 93 fL L=82 H=92 MCH 785-6 31.4 pg L=27.0 H=31.0 MCHC 786-4 33.8 % L=32.0 H=36.0 RDW-SD 788-0 43.8 fL L=39.0 H=49.0 PLATELET COUNT 777-3 108 th/cmm L=150 H=45 0 Active Medications Medications Administered During Visit Medication Dose Units Frequency Route Date/Time of Last Dose OXYMETAZOLINE NASAL SPRAY 0.05% 15ML 2 SPRAYS X1 NASAL EACH NOSTRIL 02:30 Encounters Encounter Diagnosis Diagnosis Code Start Date Epistaxis R040 06/17/2022 Social History Smoking Status Code Start Date End Date Never smoker [id number] Patient Decision Aids Unknown or Not Available. Discharge Instructions You were admitted to [facility] on 06/17/2022 01:01 with a principal diagnosis of Epistaxis You had the following tests done:CBC W/ DIFFERENTIAL* You were discharged from [facility] on 06/17/2022 02:58 Should you have any questions prior to discharge, please contact a member of your healthcare team. If you have left the hospital and have any questions, please contact your primary care physician. Chief Complaint and Reason For Visit Chief Complaint Date of Onset NOSEBLEED Function Status Unknown or Not Available. Plan of Care Unknown or Not Available. Referral/Transition of Care Unknown or Not Available.
--- OUTSIDE RECORDS SUMMARY | 2023-02-19 15:16 | XMS_ITS | CCD ---
Author Name Unknown Address [address] [place] [address] [phone] Organization Unknown Address [address] [place] [address] [phone] Care Team Providers Care Civil Technician Name Role Phone LUKEJavy VINNY Attending Physician [phone] Vital Signs Unknown or Not Available. Allergies Allergy Code Allergy Type Reaction Status AMBIEN 743767 Drug allergy ALTERED MENTAL STATUS A ctive AMITRIPTYLINE HCL 704 Drug allergy PALPITATIONS Act north Procedures Unknown or Not Available. History of Immunizations Unknown or Not Available. Problems Problem Code Start Date Resolved Date Status High cholesterol 50417070 07/31/2022 Resolved GERD 690661942 07/31/2022 Resolved Hypothyroidism 20414219 07/31/2022 Resolved BPH 867749685 07/31/2022 Resolved Migraine 41292082 07/31/2022 Resolved AFIB 86600771 07/31/2022 Resolved Thrombocytopenia 173481370 07/31/2022 Resolved Results Unknown or Not Available. Active Medications Medication Code Dose Units Frequency Route Modificatio n Start Date/Time Baclofen 10MG Oral Tablet 734102 10 MILLIGRAMS NEEDED, DAILY ORAL 10/28/2017 18:36 Prescription Detail TAKE 10 MILLIGRAMS ORAL NEEDED, DAILY Metoprolol Succinate 50MG Oral Tablet, Extended Release [id number] 150 MILLIGRAMS DAILY ORAL 7 18:36 Prescription Detail TAKE 150 MILLIGRAMS ORAL DAILY OMEPRAZOLE 20MG ORAL TABLET, DELAYE 0 20 MILLIGRAMS TWICE A DAY ORAL 017 18:36 Prescription Detail TAKE 20 MILLIGRAMS ORAL TWICE A DAY VERAPAMIL ER 120 MG TABLET 0 120 MILLIGRAMS BEDTIME ORAL 10/28 18:36 Prescription Detail TAKE 120 MILLIGRAMS ORAL BEDTIME Synthroid 100MCG Oral Tablet 981679 100 MICROGRAM Q7AM BY MOUTH 08/27/2016 12:39 Prescription Detail TAKE 100 MICROGRAM BY MOUTH Q7AM Medications Administered During Visit Unknown or Not Available. Encounters Encounter Diagnosis Diagnosis Code Start Date Encounter for other orthopedic aftercare Z4789 06/27/2021 Social History Smoking Status Code Start Date End Date Never smoker [id number] Patient Decision Aids Unknown or Not Available. Discharge Instructions You were admitted to [facility] 01 on 06/27/2021 10:36 with a principal diagnosis of Encounter for other orthopedic aftercare You were discharged from [facility] on 07/30/2021 12:39 Should you have any questions prior to [...]
--- OUTSIDE RECORDS SUMMARY | 2023-02-19 15:16 | XMS_ITS | Continuity of Care Document ---
Author Name Unknown Organization [facility] Address Unknown Care Team Providers Care Solid Waste Analyst Name Role Phone Radha Mckeon Primary Care Physician Unavaila ble Encounter [facility] Date(s): 11/17/19 - 11/23/19 [facility] [address] [place] [address]- Encounter Diagnosis Abnormal gait(Discharge Diagnosis) - 11/17/19 Hypokalemia(Discharge Diagnosis) - 11/17/19 Constipation(Discharge Diagnosis) - 11/17/19 S/P total knee arthroplasty(Discharge Diagnosis) - 11/17/19 Pain, acute(Discharge Diagnosis) - 11/17/19 Aftercare following joint replacement surgery(Final) - Presence of right artificial knee joint(Final) - Essential (primary) hypertension(Final) - Thrombocytopenia, unspecified(Final) - Paroxysmal atrial fibrillation(Final) - snf (current) use of anticoagulants(Final) - Low back pain(Final) - Unspecified right bundle-branch block(Final) - Constipation, unspecified(Final) - Unspecified abnormalities of gait and mobility(Final) - Frequency of micturition(Final) - Discharge Disposition: Home Care with Home Health Attending Physician: Joaquin Tan MD Admitting Physician: Joaquin Tan MD Referring Physician: Sukhjinder Jauregui Allergies, Adverse Reactions, Alerts Substance Reaction Severity Status flecainide Active atorvastatin Active Assessment and Plan Extracted from: Title:Discharge Note Author:Samantha Simon Date:11/23/19 This patient has been prescr ibed an opioid analgesic for the acute management of pain. ?? 1.??Consideration for non-pharmacological modalities and no-opiate options for the management of pain were considered. These options were not considered sufficient for the??treatment of pain due to?continued moderate-severe pain that impairs mobility despite using??non-opiate options. ?? 2.??The patient has been given a non-refillable prescription for limited amount of the following opioid analgesic:?Dilaudid. ?? 3.??Informed consent outlining the risks and benefits of opioid use has been reviewed and obtained from the patient. ?? 4.??The [place] Prescription Monitoring System has been queried as per the opioid prescribing rules. ?? Orders: bisacodyl, 10 mg = 1 supp, Per rectum, Daily, PRN PRN Constipation, 0 Refill(s) docusate-senna, 2 tab(s), Oral, BID, 0 Refill(s) gabapentin, 300 mg = 1 cap(s), Oral, TID, # 90 cap(s), 0 Refill(s), Pharmacy: [facility] #[id number], 1 cap(s) Oral TID HYDROmorphone, 2 mg = 1 tab(s), Oral, q4hr, PRN PRN Pain, take 1 tab for moderate pain, and 2 tabs for severe pain every 4 hours as needed, # 24 tab(s), 0 Refill(s), 11/30/19, Pharmacy: [facility] #[id number], 1 tab(s) Oral q4hr,PRN:Pain,Instr:take 1 tab for mo..., take 1 tab for moderate pain, and 2 tabs for severe pain every 4 hours as needed melatonin, 9 mg = 3 tab(s), Oral, HS, 0 Refill(s) polyethylene glycol 3350, 17 gm 1 packet(s), Oral, BID, PRN PRN Constipation, 0 Refill(s) sodium biphosphate-sodium phosphate, 118 mL, Enema, Per rectum, Once, Routine, Start date: 11/23/19 8:30:00 EST, Stop date: 11/23/19 8:30:00 EST tamsulosin, 0.4 mg = 1 cap(s), Oral, Daily, # 30 cap(s), 0 Refill(s), Pharmacy: [facility] #[id number], 1 cap(s) Oral Daily Discharge stable discharge home with PT, follow up PCP 1 week and ortho in 1 month ?? More than 35 minutes spent on discharge planning and coordination of care. Discussed with??Gwyn Pizano MD. Functional Status 11/23/19 History of Fall in Last 3 Months Flowers N o Mobility Junior Slightly limited Ambulatory Devices Walker 11/17/19 Bathing ADL Index Requires assistance (1) Dressing ADL Index Requires assistance (1) Transferring Bed or Chair ADL Index Requ ires assistance (1) 1 Continence ADL Index Independent (2) ADLs Minimal assistance 1Result Comment: SBA Medications baclofen 10 mg, Oral, HS, 0 Refill(s) Start Date: 11/17/19 Status: Ordered bisacodyl 10 mg rectal suppository 10 mg = 1 supp, Per rectum, Daily, PRN PRN Constipation, 0 Refill(s) Start Date: 11/23/19 Status: Ordered Botox 200 units injection 200 unit(s), IM, q3mo, # 1 EA, 0 Refill(s) Start Date: 11/17/19 Status: Ordered Centrum Silver oral tablet 1 tab(s), Oral, HS, # 30 tab(s), 0 Refill(s) Start Date: 11/17/19 Status: Ordered Dilaudid 2 mg oral tablet 2 mg = 1 tab(s), Oral, q4hr, PRN PRN Pain, take 1 tab for moderate pain, and 2 tabs for severe painevery 4 hours as needed, # 24 tab(s), 0 Refill(s), 11/30/19, [id number],1 tab(s) Oral q4hr,PRN:Pain,Instr:take 1 tab for mo... Start Date: 11/23/19 Stop Date: 11/30/19 Status: Ordered docusate-senna 50 mg-8.6 mg oral tablet 2 tab(s), Oral, BID, 0 Refill(s) Start Date: 11/23/19 Status: Ordered Eliquis 5 mg oral tablet 5 mg = 1 tab(s), Oral, BID, # 60 tab(s), 0 Refill(s) Start Date: 11/17/19 Status: Ordered EPA Fish Oil 1000 mg oral capsule 2,000 mg = 2 cap(s), Oral, Daily, 0 Refill(s) Start Date: 11/17/19 Status: Ordered Flomax 0.4 mg oral capsule 0.4 mg = 1 cap(s), Oral, Daily, # 30 cap(s), 0 Refill(s), Pharmacy: [facility] #[id number], 1 cap(s) Oral Daily Start Date: 11/23/19 Status: Ordered gabapentin 300 mg oral capsule 300 mg = 1 cap(s), Oral, TID, # 90 cap(s), 0 Refill(s), Pharmacy: [facility] #[id number], 1 cap(s) Oral TID Start Date: 11/23/19 Status: Ordered LaMICtal 50 mg, Oral, BID, takes TWO 25mg tabs BID at homefor dosing of 50mg BID, 0 Refill(s) Start Date: 11/17/19 Status: Ordered melatonin 3 mg oral tablet 9 mg = 3 tab(s), Oral, HS, 0 Refill(s) Start Date: 11/23/19 Status: Ordered MiraLax 17 gm 1 packet(s), Oral, BID, PRN PRN Constipation, 0 Refill(s) Start Date: 11/23/19 Status: Ordered omeprazole 20 mg oral delayed release capsule 20 mg = 1 cap(s), Oral, BID, 0 Refill(s) Start Date: 11/17/19 Status: Ordered simvastatin 10 mg oral tablet 10 mg = 1 tab(s), Oral, Once a day (at bedtime), # 90 tab(s), 0 Refill(s) Start Date: 11/17/19 Status: Ordered SUMAtriptan 100 mg oral tablet 100 mg = 1 tab(s), Oral, Daily, PRN PRN for migraine headache, may repeat dose after 2 hours up to a maximum of 200 mg in 24 hours, # 9 tab(s), 0 Refill(s) Start Date: 11/17/19 Status: Ordered Synthroid 100 mcg, Oral, Daily, 0 Refill(s) Start Date: 11/17/19 Status: Ordered Toprol-XL 150 mg = 3 tab(s), Tab-ER, Oral, Start date: 11/20/19 8:30:00 EST Start Date: 11/20/19 Stop Date: 11/20/19 Status: Completed Toprol-XL 150 mg = 3 tab(s), Tab-ER, Oral, Start date: 11/21/19 8:30:00 EST Start Date: 11/21/19 Stop Date: 11/21/19 Status: Completed Toprol-XL 100 mg oral tablet, extended release 150 mg = 1.5 tab(s), Oral, Daily, 1.5 tabs = 150mg QD, 0 Refill(s) Start Date: 11/17/19 Status: Ordered triamcinolone 0.025% topical lotion 1 britany, TOP, TID, PRN PRN rash/itching, # 60 mL, 0 Refill(s) Start Date: 11/17/19 Status: Ordered Tylenol 1,000 mg, Oral, q8hr, PRN PRN Pain - Moderate, 0 Refill(s) Start Date: 11/17/19 Status: Ordered valACYclovir 500 mg, Oral, HS, 0 Refill(s) Start Date: 11/17/19 Status: Ordered verapamil 120 mg = 0.5 tab(s), Tab-ER, Oral, Start date: 11/20/19 8:30:00 EST Start Date: 11/20/19 Stop Date: 11/20/19 Status: Completed verapamil 120 mg = 0.5 tab(s), Tab-ER, Oral, Start date: 11/21/19 8:30:00 EST Start Date: 11/21/19 Stop Date: 11/21/19 Status: Completed verapamil 120 mg oral tablet, extended release 120 mg = 1 tab(s), Oral, Daily, # 30 tab(s), 0 Refill(s) Start Date: 11/17/19 Status: Ordered Mental Status 11/23/19 Sensory Perception Junior No impairment Level of Consciousness Alert Problem List Condition Effective Dates Status Health Status Inform ant Chronic back pain(Confirmed) Active HTN (hypertension)(Confirmed) Active PAF (paroxysmal atrial fibrillation)(Confirmed) Active Thrombopenia(Confirmed) Active Failed total knee arthroplasty(Confirmed) Active RBBB(Confirmed) Active Results Laboratory List Name Date Basic Metabolic Panel DH (BMP DH) 0 .Hemogram DH (CBC DH) 11/21/19 Basic Metabolic Panel DH (BMP DH) 0 Glucose POC1 11/18/19 .Hemogram DH (CBC DH) 11/18/19 Basic Metabolic Panel DH 11/18/19 Scan, Peripheral Blood DH 11/18/19 Most recent to oldest [Reference Range]: 1 2 3 Anion Gap DH [5-15 mmol/L] 6 mmol/L (11/23/19 5:19 AM) 9 mmol/L (11/21/19 3:25 PM) 6 mmol/L (11/18/19 5:40 AM) Chloride Lvl DH [98-107 mmol/L] 97 mmol/L *LOW* (11/23/19 5:19 AM) 97 mmol/L *LOW* (11/21/19 3:25 PM) 106 mmol/L (11/18/19 5:40 AM) CO2 DH [22-31 mmol/L] 32 mmol/L *HI* (11/23/19 5:19 AM) 31 mmol/L (11/21/19 3:25 PM) 28 mmol/L (11/18/19 5:40 AM) Est GFR DH [>=60] 68 1 (11/23/19 5:19 AM) 65 2 (11/21/19 3:25 PM) 70 3 (11/18/19 5:40 AM) Glucose Lvl DH [65-99 mg/dL] 106 mg/dL *HI* (11/23/19 5:19 AM) 122 mg/dL *HI* (11/21/19 3:25 PM) 97 mg/dL (11/18/19 5:40 AM) Macrocyte DH 1-5 (11/18/19 5:40 AM) Ovalocytes DH 1-5 (11/18/19 5:40 AM) Plat estimate DH Decreased (11/18/19 5:40 AM) Potassium Lvl DH [3.5-5.0 mmol/L] 5.2 mmol/L *HI* (11/23/19 5:19 AM) 5.3 mmol/L *HI* (11/21/19 3:25 PM) 4.7 mmol/L (11/18/19 5:40 AM) RBC Morph DH Abnormal 4 (11/18/19 5:40 AM) Sodium Lvl DH [135-145 mmol/L] 135 mmol/L (11/23/19 5:19 AM) 137 mmol/L (11/21/19 3:25 PM) 140 mmol/L (11/18/19 5:40 AM) BUN DH [10-20 mg/dL] 20 mg/dL (11/23/19 5:19 AM) 19 mg/dL (11/21/19 3:25 PM) 23 mg/dL *HI* (11/18/19 5:40 AM) Calcium Lvl DH [8.5-10.5 mg/dL] 9.5 mg/dL (11/23/19 5:19 AM) 9.7 mg/dL (11/21/19 3:25 PM) 8.9 mg/dL (11/18/19 5:40 AM) Creatinine [0.80-1.50 mg/dL] 1.11 mg/dL (11/23/19 5:19 AM) 1.15 mg/dL (11/21/19 3:25 PM) 1.09 mg/dL (11/18/19 5:40 AM) GFR - DH [>=60] 79 5 (11/23/19 5:19 AM) 76 6 (11/21/19 3:25 PM) 81 7 (11/18/19 5:40 AM) Glucose POC [<=600 mg/dL] 115 mg/dL (11/18/19 10:56 AM) Hct DH [40.5-48.5 %] 32.1 % *LOW* (11/21/19 3:25 PM) 27.8 % *LOW* (11/18/19 5:40 AM) Hgb DH [13.7-16.5 gm/dL] 10.7 gm/dL *LOW* (11/21/19 3:25 PM) 9.2 gm/dL *LOW* (11/18/19 5:40 AM) MCHC DH [32.0-35.7 pg] 33.3 pg (11/21/19 3:25 PM) 33.1 pg (11/18/19 5:40 AM) MCH DH [27.5-32.1 pg] 31.6 pg (11/21/19 3:25 PM) 31.4 pg (11/18/19 5:40 AM) MCV DH [82.9-93.1 fL] 94.7 fL *HI* (11/21/19 3:25 PM) 94.9 fL *HI* (11/18/19 5:40 AM) MPV DH [7.6-12.9 fL] 10.9 fL (11/21/19 3:25 PM) 12.0 fL (11/18/19 5:40 AM) Platelet DH [145-357 x10(3)/mcL] 103 x10(3)/mcL *LOW* (11/21/19 3:25 PM) 67 x10(3)/mcL *LOW* (11/18/19 5:40 AM) RBC DH [4.58-5.54 x10(6)/mcL] 3.39 x10(6)/mcL *LOW* (11/21/19 3:25 PM) 2.93 x10(6)/mcL *LOW* (11/18/19 5:40 AM) RDWCV DH [11.4-13.8 x10(6)/mcL] 12.1 x10(6)/mcL (11/21/19 3:25 PM) 12.3 x10(6)/mcL (11/18/19 5:40 AM) RDWSD DH [36.0-45.0 fL] 41.7 fL (11/21/19 3:25 PM) 42.1 fL (11/18/19 5:40 AM) WBC DH [4.0-9.5 x10(3)/mcL] 6.8 x10(3)/mcL (11/21/19 3:25 PM) 6.4 x10(3)/mcL (11/18/19 5:40 AM) Blood Glucose, Capillary POC [74-118 mg/dL] 115 mg/dL (11/18/19 10:56 AM) 1Result Comment: The eGFR was calculated using the CKD-EPI equation. As with all creatinine based estimates of kidney function, eGFR values calculated with the CKD-EPI equation are not accurate in patients with acute kidney failure, extremes of body mass or the acutely ill. [email or web address] 2Result Comment: The eGFR was calculated using the CKD-EPI equation. As with all creatinine based estimates of kidney function, eGFR values calculated with the CKD-EPI equation are not accurate in patients with acute kidney failure, extremes of body mass or the acutely ill. [email or web address]/[facility] 3Result Comment: The eGFR was calculated using the CKD-EPI equation. As with all creatinine based estimates of kidney function, eGFR values calculated with the CKD-EPI equation are not accurate in patients with acute kidney failure, extremes of body mass or the acutely ill. http://[employer]/[facility] [place] 4Result Comment: smear review confirms automated counts 5Result Comment: The eGFR was calculated using the CKD-EPI equation. As with all creatinine based estimates of kidney function, eGFR values calculated with the CKD-EPI equation are not accurate in patients with acute kidney failure, extremes of body mass or the acutely ill. [email or web address] 6Result Comment: The eGFR was calculated using the CKD-EPI equation. As with all creatinine based estimates of kidney function, eGFR values calculated with the CKD-EPI equation are not accurate in patients with acute kidney failure, extremes of body mass or the acutely ill. [email or web address] 7Result Comment: The eGFR was calculated using the CKD-EPI equation. As with all creatinine based estimates of kidney function, eGFR values calculated with the CKD-EPI equation are not accurate in patients with acute kidney failure, extremes of body mass or the acutely ill. http://[employer]/[facility] [place] Radiology Reports true* Exam Date Time Procedure Performing Provider Status 11/21/19 12:54 PM US LE Venous Duplex Right ZI COOPER; Modified Notes: (US LE Venous Duplex Right) Reason For Exam: r/o DVT increased pain from hip to ankle, increased swelling US LE VENOUS DUPLEX RIGHT EXAMINATION: US LE VENOUS DUPLEX RIGHT CLINICAL HISTORY: r/o DVT increased pain from hip to ankle, increased swelling TECHNIQUE: Duplex and color doppler ultrasound was performed of the right lower extremity using the ultrasound transducer for venous compression. COMPARISON: CT 04/26/2019 FINDINGS: The deep veins of the RIGHT lower extremity show normal respiratory phasicity, augmentation and compression. There is no two dimensional evidence of thrombus. Comparison images the left common femoral vein are normal. Complex fluid flexion the popliteal fossa measuring 4.9 x 2.8 x 1.2 cm IMPRESSION:. No sonographic evidence of deep vein thrombosis. Popliteal fossa cyst Thank you for letting us participate in the care of this patient. For questions regarding this report, please contact the number below. Final Dictated: 11/21/2019 1:04 pm Rock Mitchell DO Signed (Electronic Signature): 11/21/2019 12:59 pm Signed by: Rock Mitchell DO Transcribed by: Robson Technologist: TRAY COOPER Vital Signs Most recent to oldest [Reference Range]: 1 2 3 4 Temperature Oral [35.8-37.3 DegC] 36.4 DegC (11/23/19 7:09 AM) 36.5 DegC (11/23/19 12:16 AM) 36.5 DegC (11/22/19 9:05 PM) Temperature Oral (DegF) 97.52 DegF (11/23/19 7:09 AM) 97.88 DegF (11/22/19 7:37 AM) 98.24 DegF (11/21/19 4:20 PM) Apical Heart Rate [60-100 bpm] 74 bpm (11/21/19 9:19 AM) 74 bpm (11/21/19 9:19 AM) 66 bpm (11/20/19 9:05 AM) 80 bpm (11/20/19 9:05 AM) Peripheral Pulse Rate [60-100 bpm] 68 bpm (11/23/19 7:09 AM) 59 bpm *LOW* (11/23/19 12:16 AM) 58 bpm *LOW* (11/22/19 9:05 PM) Respiratory Rate [14-20 br/min] 17 br/min (11/23/19 7:09 AM) 16 br/min (11/23/19 12:16 AM) 17 br/min (11/22/19 9:05 PM) Blood Pressure [90-140/60-90 mmHg] 103/62mmHg (11/23/19 7:09 AM) Systolic Blood Pressure [90-140 mmHg] 146 mmHg *HI* (11/23/19 12:16 AM) 161 mmHg *HI* (11/22/19 9:05 PM) Diastolic Blood Pressure [60-90 mmHg] 82 mmHg (11/23/19 12:16 AM) 88 mmHg (11/22/19 9:05 PM) Mean Arterial Pressure, Cuff 103 mmHg (11/23/19 12:16 AM) 112 mmHg (11/22/19 9:05 PM) 99 mmHg (11/22/19 5:48 PM) BP Site Right arm (11/21/19 8:52 PM) Right arm (11/21/19 4:20 PM) Right arm (11/20/19 9:20 PM) Patient Position BP Supine (11/22/19 12:14 AM) Supine (11/21/19 8:52 PM) Supine (11/21/19 12:16 AM) FIO2 21 % (11/19/19 9:16 PM) 21 % (11/18/19 8:50 PM) 21 % (11/18/19 1:03 AM) SpO2 [92-100 %] 98 % (11/23/19 7:09 AM) 100 % (11/23/19 12:16 AM) 100 % (11/22/19 9:05 PM) Height 180.000 cm (11/17/19 2:10 PM) Height/Length Dosing 182.9 cm (11/17/19 3:46 PM) 182.9 cm (11/17/19 3:25 PM) 180.000 cm (11/17/19 2:10 PM) Weight 72.2 kg (11/23/19 3:00 AM) Weight Dosing 70.7 kg (11/17/19 3:46 PM) 68.493 kg (11/17/19 3:25 PM) Social History Social History Type Response Smoking Status Former smoker, quit more than 30 days ago entered on: 11/17/19 Sex Hospital Discharge Instructions Patient Education 11/23/2019 13:11:49 Hospitalist Services Upon Discharge (RADHA PEDRO) (CUSTOM) Services Upon Discharge Patient is being discharged home with these services in place: HOME SERVICES: Home Services Discharge - Arrangements and orders for follow-up care Service Provider:[facility] Contact Service(s) to be Provided: Physical Therapy Frequency: Additional Comments: Date of the face to face encounter: 11/23/19 This visit was related to S/P right TKA patellar Revision & polyswap for which the patient needs skilled home health services.?? My clinical findings support the need for skilled: Physical Therapy- 2x weekly for strengthening, stretching, endurance, balance and functional independence, The patient is homebound and requires considerable and taxing effort to leave their residence secondary to use of assistive device to ambulate and needing assist of one to leave home. To all home service providers, please contact the patient???s Primary Care Provider - Dr. Radha Mendoza - with all follow up regarding your services. Reviewed and Electronically Signed By: Gwyn Pizano MD Date: 11/23/2019 11/23/2019 11:08:18 Instructions - Orthopedic Surgery (PRINCE.S.IP) Instructions after your Orthopedic surgery: Diet: regular Activity: Ambulate with a walker, Walk once to twice a day. Take your time. Listen to your body. Rest as needed. Activity restrictions: Weight bearing status: weight bearing as tolerated Do not drive unless you are off your narcotic pain medication and/or cleared by your surgeon. Dressing: None Showering: Yes, but use a shower chair to keep your balance and let the water run off the incision.Gently pat dry. Do not submerge the incision. Sutures/Silvana: None, they will dissolve To prevent clotting after surgery: Take: apixaban 5mg BID Pending test results: None Future tests ordered: None Call your healthcare provider or surgeon if: If you develop a persistent fever >100.5F and increasing redness/drainage/swelling over your joint or surgical incision. DO not place a pillow under your knee. New Medications: gabapentin 300mg three times a day- your doctor will wean you off of this in 30 days post surgery, this is supposed to help with nerve pain tamsulosin 0.4mg - to help with your urination, starting stream dilaudid 2mg tablets- take 1 tabs for mild pain and 2 tabs for severe pain wean yourself off of this medication over the next week. If you feel like you will need more narcotic pain medication at that time you will need to reach out to orthopedic surgeon at least 3 days prior to running out Follow Up Care 11/17/2019 11:39:32 With:Sukhjinder Jauregui Address: [address] [place] [address] [place] [address]- When:12/25/2019 13:00:00 Comments:Arrive to mud analysis supervisor desk 3T by 11:45 for your X-Ray then to mud analysis supervisor desk 3C by 12:30 for your Orthopedic follow up appointment With:Radha Mckeon Address: [address] [address]- P: F: When:12/01/2019 11:15:00 Comments:Follow up your hospital stay with your primary care provider
--- OUTSIDE RECORDS SUMMARY | 2023-02-19 15:16 | XMS_ITS | CCD ---
Author Name Unknown Address [address] [place] [address] [phone] Organization Unknown Address [address] [place] [address] [phone] Care Team Providers Care Signal And Communications Maintainer Name Role Phone INDY GEORGIE Christopher Attending Physician [phone] UNLISTED REQUESTED, PROVIDER - Er Physician 1 SAURAV Jung Registered Nurse [phone] Vital Signs Vital Sign Value Unit Date/Time Recent/Initial ? BMI (Body Mass Index) 23.57 kg/m^2 12/01/2022 20: 34 Initial VS Weight Measured 169 lbs 12/01/2022 20:34 Ini tial VS Height 71 in 12/01/2022 20:34 Initial VS BSA (Body Surface Area) 1.96 m^2 12/01/2022 2 0:34 Initial VS BP Systolic 193 mmHg 12/01/2022 20:34 Initial VS BP Diastolic 87 mmHg 12/01/2022 20:34 Initia l VS Respiratory Rate 16 bpm 12/01/2022 20:34 In itial VS Heart Rate 71 bpm 12/01/2022 20:34 Initial VS O2 % BldC Oximetry 99 % 12/01/2022 20:34 Initial VS Body Temperature 36.6 degrees 12/01/2022 20:34 In itial VS BP Systolic 184 mmHg 12/01/2022 22:10 Most Re cent VS BP Diastolic 78 mmHg 12/01/2022 22:10 Most R ecent VS Respiratory Rate 18 bpm 12/01/2022 22:[address] Recent VS Heart Rate 86 bpm 12/01/2022 22:10 Most Rec ent VS O2 % BldC Oximetry 98 % 12/01/2022 22:10 Most Recent VS Body Temperature 36.7 degrees 12/01/2022 22:[address] Recent VS Allergies Allergy Code Allergy Type Reaction Status AMBIEN 111482 Drug allergy ALTERED MENTAL STATUS A ctive AMITRIPTYLINE HCL 704 Drug allergy PALPITATIONS Act north Procedures Unknown or Not Available. History of Immunizations Unknown or Not Available. Problems Unknown or Not Available. Results CBC W/ DIFFERENTIAL* - [facility] ct Date/Time: 12/01/2022 20:54 Test Name Code Test Result Test Units Test Ref Rang e WBC 6690-2 6.37 th/cmm L=5.00 H=10.00 NEUT % 67.4 % L=40.0 H=80.0 LYMPH % 13.8 % L=10.0 H=50.0 MONO % 50972-9 10.7 % L=2.0 H=12.0 EOS % 7.1 % L=0.0 H=8.0 BASO % 0.8 % L=0.0 H=3.0 IG % 2514-8 0.2 % L=0.0 H=1.1 NRBC % 29300-2 0.0 % L=0.0 H=0.0 NEUT abs count 751-8 4.3 th/cmm L=1.6 H=8. 4 LYMPH abs count 731-0 0.9 th/cmm L=1.5 H=4 .0 MONO abs count 742-7 0.7 th/cmm L=0.2 H=1. 0 EOS abs count 711-2 0.5 th/cmm L=0.0 H=0.5 BASO abs count 704-7 0.1 th/cmm L=0.0 H=0. 2 IG abs count 34329-1 0.0 th/cmm L=0.0 H=0.1 NRBC abs count 35640-6 0.0 mil/cmm L=0.0 H=0. 0 RBC 789-8 4.71 mil/cmm L=4.30 H=6.20 HEMOGLOBIN 718-7 14.4 gm/dL L=13.0 H=17.0 HEMATOCRIT 4544-3 43 % L=45 H=52 MCV 787-2 91 fL L=82 H=92 MCH 785-6 30.6 pg L=27.0 H=31.0 MCHC 786-4 33.6 % L=32.0 H=36.0 RDW-SD 788-0 41.8 fL L=39.0 H=49.0 PLATELET COUNT 777-3 114 th/cmm L=150 H=45 0 Active Medications Unknown or Not Available. Medications Administered During Visit Medication Dose Units Frequency Route Date/Time of Last Dose OXIDIZED CELLULOSE: 2 X 14 INCH 1 EA X1 TOP 12/01/2022 20:4 1 OXYMETAZOLINE NASAL SPRAY 0.05% 15ML 2 SPRAYS X1 NASAL EACH NOSTRIL 21:17 Encounters Encounter Diagnosis Diagnosis Code Start Date Epistaxis R040 12/01/2022 Social History Smoking Status Code Start Date End Date Never smoker [id number] Patient Decision Aids Unknown or Not Available. Discharge Instructions You were admitted to [facility] on 12/01/2022 20:17 with a principal diagnosis of Epistaxis You had the following tests done:CBC W/ DIFFERENTIAL* You were discharged from [facility] on 12/01/2022 22:11 Should you have any questions prior to discharge, please contact a member of your healthcare team. If you have left the hospital and have any questions, please contact your primary care physician. Chief Complaint and Reason For Visit Chief Complaint Date of Onset NOSE BLEED Function Status Unknown or Not Available. Plan of Care Unknown or Not Available. Referral/Transition of Care Unknown or Not Available.
--- OUTSIDE RECORDS SUMMARY | 2023-02-19 15:16 | XMS_ITS | CCD ---
Author Name Unknown Address [address] [place] [address] [phone] Organization Unknown Address [address] [place] [address] [phone] Care Team Providers Care Cream Maker Name Role Phone CRISTIANO WORKMAN Attending Physician [phone] Vital Signs Unknown or Not Available. Allergies Allergy Code Allergy Type Reaction Status AMBIEN 168497 Drug allergy ALTERED MENTAL STATUS A ctive AMITRIPTYLINE HCL 704 Drug allergy PALPITATIONS Act north Procedures Unknown or Not Available. History of Immunizations Unknown or Not Available. Problems Problem Code Start Date Resolved Date Status High cholesterol 14517661 07/31/2022 Resolved GERD 282634329 07/31/2022 Resolved Hypothyroidism 15474059 07/31/2022 Resolved BPH 245040766 07/31/2022 Resolved Migraine 55713625 07/31/2022 Resolved AFIB 70307630 07/31/2022 Resolved Thrombocytopenia 733823744 07/31/2022 Resolved Results Unknown or Not Available. Active Medications Medication Code Dose Units Frequency Route Modificatio n Start Date/Time Baclofen 10MG Oral Tablet 390391 10 MILLIGRAMS NEEDED, DAILY ORAL 10/28/2017 18:36 Prescription Detail TAKE 10 MILLIGRAMS ORAL NEEDED, DAILY Metoprolol Succinate 50MG Oral Tablet, Extended Release [id number] 150 MILLIGRAMS DAILY ORAL 7 18:36 Prescription Detail TAKE 150 MILLIGRAMS ORAL DAILY OMEPRAZOLE 20MG ORAL TABLET, DELAYE 0 20 MILLIGRAMS TWICE A DAY ORAL 017 18:36 Prescription Detail TAKE 20 MILLIGRAMS ORAL TWICE A DAY VERAPAMIL ER 120 MG TABLET 0 120 MILLIGRAMS BEDTIME ORAL 10/28 18:36 Prescription Detail TAKE 120 MILLIGRAMS ORAL BEDTIME Synthroid 100MCG Oral Tablet 075775 100 MICROGRAM Q7AM BY MOUTH 08/27/2016 12:39 Prescription Detail TAKE 100 MICROGRAM BY MOUTH Q7AM Medications Administered During Visit Unknown or Not Available. Encounters Encounter Diagnosis Diagnosis Code Start Date Chronic migraine without aur a, intractable, without status migrainosus [id number] 05/08/2021 Social History Smoking Status Code Start Date End Date Never smoker [id number] Patient Decision Aids Unknown or Not Available. Discharge Instructions You were admitted to [facility] on 05/08/2021 15:08 with a principal diagnosis of Chronic migraine without aura, intractable, without status migrainosus You were discharged from [facility] on 05/08/2021 15:08 Should you have any questions prior to [...]
--- OUTSIDE RECORDS SUMMARY | 2023-02-19 15:16 | XMS_ITS | CCD ---
Author Name Unknown Address [address] [place] [address] [phone] Organization Unknown Address [address] [place] [address] [phone] Care Team Providers Care Benefits Analyst Name Role Phone CHARIS WORKMAN Attending Physician [phone] Vital Signs Unknown or Not Available. Allergies Allergy Code Allergy Type Reaction Status AMBIEN [id number] Drug allergy ALTERED MENTAL STATUS A ctive AMITRIPTYLINE HCL 704 Drug allergy PALPITATIONS Act north Procedures Unknown or Not Available. History of Immunizations Unknown or Not Available. Problems Unknown or Not Available. Results COMPREHENSIVE METABOLIC PANE L (CMP) - Collect Date/Time: 02/05/2023 12:15 Test Name Code Test Result Test Units Test Ref Rang e GLUCOSE 2345-7 92 mg/dL L=70 H=116 BUN 3094-0 21 mg/dL L=6 H=25 CREATININE 2160-0 1.24 mg/dL L=0.67 H=1.17 SODIUM SERUM 2951-2 139 mmol/L L=136 H=145 POTASSIUM SERUM 2823-3 4.5 mmol/L L=3.4 H=5 .2 CHLORIDE SERUM 2075-0 103 mmol/L L=96 H=110 CARBON DIOXIDE (CO2) 2028-9 29 mmol/L L=22 H=34 ANION GAP 83359-4 7.5 mmol/L CALCIUM SERUM 50883-6 9.3 mg/dL L=8.2 H=10. 2 BILIRUBIN TOTAL 1975-2 0.8 mg/dL L=0.0 H=1 .3 ALK. PHOS. 6768-6 121 U/L L=46 H=116 SGOT (AST) 1920-8 48 U/L L=15 H=37 SGPT (ALT) 1742-6 27 U/L L=12 H=78 TOTAL PROTEIN 2885-2 7.2 gm/dL L=6.0 H=8.0 ALBUMIN 1751-7 4.2 gm/dL L=3.4 H=5.0 AGE 72 years eGFR (non-Afr.Amer.) 96609-1 58 mL/min eGFR (Afr-Danish) 96100-1 70 mL/min CBC W/ DIFFERENTIAL* - [facility] ct Date/Time: 02/05/2023 12:15 Test Name Code Test Result Test Units Test Ref Rang e WBC 6690-2 6.04 th/cmm L=5.00 H=10.00 NEUT % 72.1 % L=40.0 H=80.0 LYMPH % 14.1 % L=10.0 H=50.0 MONO % 27842-4 10.9 % L=2.0 H=12.0 EOS % 2.2 % L=0.0 H=8.0 BASO % 0.5 % L=0.0 H=3.0 IG % 2514-8 0.2 % L=0.0 H=1.1 NRBC % 91486-0 0.0 % L=0.0 H=0.0 NEUT abs count 751-8 4.4 th/cmm L=1.6 H=8. 4 LYMPH abs count 731-0 0.9 th/cmm L=1.5 H=4 .0 MONO abs count 742-7 0.7 th/cmm L=0.2 H=1. 0 EOS abs count 711-2 0.1 th/cmm L=0.0 H=0.5 BASO abs count 704-7 0.0 th/cmm L=0.0 H=0. 2 IG abs count 55449-0 0.0 th/cmm L=0.0 H=0.1 NRBC abs count 10686-8 0.0 mil/cmm L=0.0 H=0. 0 RBC 789-8 5.15 mil/cmm L=4.30 H=6.20 HEMOGLOBIN 718-7 15.9 gm/dL L=13.0 H=17.0 HEMATOCRIT 4544-3 47 % L=45 H=52 MCV 787-2 92 fL L=82 H=92 MCH 785-6 30.9 pg L=27.0 H=31.0 MCHC 786-4 33.5 % L=32.0 H=36.0 RDW-SD 788-0 40.8 fL L=39.0 H=49.0 PLATELET COUNT 777-3 102 th/cmm L=150 H=45 0 Active Medications Medication Code Dose Units Frequency Route Modificatio n Start Date/Time Baclofen 10MG Oral Tablet [id number] 10 MILLIGRAMS NEEDED, DAILY ORAL 10/28/2017 18:36 Prescription Detail TAKE 10 MILLIGRAMS ORAL NEEDED, DAILY Metoprolol Succinate 50MG Oral Tablet, Extended Release [id number] 150 MILLIGRAMS DAILY ORAL 7 18:36 Prescription Detail TAKE 150 MILLIGRAMS ORAL DAILY OMEPRAZOLE 20MG ORAL TABLET, DELAYE 0 20 MILLIGRAMS TWICE A DAY ORAL 017 18:36 Prescription Detail TAKE 20 MILLIGRAMS ORAL TWICE A DAY VERAPAMIL ER 120 MG TABLET 0 120 MILLIGRAMS BEDTIME ORAL 10/28 18:36 Prescription Detail TAKE 120 MILLIGRAMS ORAL BEDTIME Synthroid 100MCG Oral Tablet 820250 100 MICROGRAM Q7AM BY MOUTH 08/27/2016 12:39 Prescription Detail TAKE 100 MICROGRAM BY MOUTH Q7AM Medications Administered During Visit Unknown or Not Available. Encounters Encounter Diagnosis Diagnosis Code Start Date Other fatigue [id number] 02/05/2023 Social History Smoking Status Code Start Date End Date Never smoker [id number] Patient Decision Aids Unknown or Not Available. Discharge Instructions You were admitted to [facility] on 02/05/2023 11:43 with a principal diagnosis of Other fatigue You had the following tests done:CBC W/ DIFFERENTIAL*COMPREHENSIVE METABOLIC PANEL (CMP) You were discharged from [facility] on 02/05/2023 11:43 Should you have any questions prior to [...]
--- OUTSIDE RECORDS SUMMARY | 2023-02-19 15:16 | XMS_ITS ---
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 Name Role Phone Joaquin Metzger Unavailable [phone] PROBLEMS Type Condition ICD9-CM Code FQV25-QZ Code Onset Dates Condition Status SNOMED Code Problem Ingrown toenail without infection L60.0 Active Problem Ingrown toenail L60.0 Active 01663926 9 Problem Paronychia of toe of left foot L03.032 Active [id number] 00 Problem Toe pain, right M79.674 Active 84058351 Problem Porokeratosis Q82.8 Active 677750345 Problem Toe pain, left M79.675 Active 29883326 Problem Pain of right great toe M79.674 Active Problem Left foot pain M79.672 Active 699274758 352369 Problem Metatarsalgia of both feet M77.41 Active 86463779 Problem Foot pain, bilateral M79.671 Active 93153193 Problem Posterior tibial tendinitis M76.829 Active 70113503 Problem Scar tissue L90.5 Active 45940540 Problem Toe pain, bilateral M79.674 Active Problem Neuropathy G62.9 Active 174329489 Problem Ingrown toenail of right foot L60.0 Active Problem Radiculopathy M54.10 Active 26601537 Problem Neuropathy of lower extremity, unspecified laterality G57.90 Active 745725738 Problem Paresthesia of both lower extremities R20.2 Active 93172714 Problem Keratoma L57.0 Active 71417577 ALLERGIES Substance Reaction Event Type Date Status Amitriptyline HCl heart races Drug Allergy Sep, Fredis Martinez bad dreams Drug Allergy Sep, Active ENCOUNTERS Encounter Location Date Diagnosis [facility] [address] Sep, Scar tissue L90.5 ; Left carina t pain M79.672 ; Neuropathy G62.9 and Keratoma L57.0 [facility] [address] Jun, Neuropathy of lower extremit y, unspecified laterality G57.90 ; Radiculopathy M54.10 and Paresthesia of both lower extremities R20.2 [facility] [address] Apr, Neuropathy of lower extremit y, unspecified laterality G57.90 ; Radiculopathy M54.10 and Paresthesia of both lower extremities R20.2 [facility] [address] Jun, Foot pain, bilateral M79.671 ; Postop check Z09 ; Metatarsalgia of both feet M77.41 ; Tinea pedis of both feet B35.3 and Posterior tibial tendinitis M76.829 [facility] [address] May, Foot pain, bilateral M79.671 ; Postop check Z09 ; Metatarsalgia of both feet M77.41 and Tinea pedis of both feet B35.3 [facility] [address] May, Foot pain, bilateral M79.671 ; Postop check Z09 and Metatarsalgia of both feet M77.41 [facility] [address] Apr, [facility] [place] [address] Apr, Foot pain, bilateral M79.671 ; Postop check Z09 and Metatarsalgia of both feet M77.41 [facility] [address] Apr, Foot pain, bilateral M79.671 ; Postop check Z09 and Metatarsalgia of both feet M77.41 [facility] [address] March, SURGERY [address] [place] [address] March, SURGERY [address] [place] [address] March, [facility] [address] March, [facility] [address] March, [facility] [address] March, [facility] [address] March, Ingrown toenail L60.0 and To e pain, bilateral M79.674 [facility] [address] Jan, [facility] [address] Dec, Ingrown toenail of right carina t L60.0 and Pain of right great toe M79.674 [facility] [address] Jun, Ingrown toenail of right carina t L60.0 and Pain of right great toe M79.674 [facility] [address] March, Porokeratosis Q82.8 and Left foot pain M79.672 [facility] [address] March, [facility] [address] Jan, [facility] [address] Jan, Postop check Z09 [facility] [address] Dec, Ingrown toenail without infection L60.0 and Toe pain, left M79.675 [address] [address] Aug, Ingrown right big toenail L6 0.0 and Toe pain, right M79.674 [facility] [address] Jun, Paronychia of toe of left fo ot L03.032 and Toe pain, left M79.675 [facility] [address] May, Paronychia of toe of left fo ot L03.032 and Toe pain, left M79.675 [facility] [address] May, [facility] [address] May, Ingrown toenail without infection L60.0 [facility] [address] [place] [address] Dec, [facility] [address] [place] [address] Dec, Ingrown toenail without infection L60.0 and Toe pain, right M79.674 [facility] [address] [place] [address] Dec, [facility] [address] [place] [address] Sep, Ingrown toenail L60.0 [facility] [address] [place] [address] Jun, Ingrown toenail without infection 703.0 ; Onycholysis 703.8 and Toe pain, right 729.5 [facility] [address] [address] Aug, [facility] [address] [place] [address] Aug, [facility] [address] [place] [address] Aug, THERAPEUTIC DRUG MONITOR V58 .83 and COUMADIN PATIENT V58.61 [facility] [address] [place] [address] Aug, [facility] [address] [place] [address] Aug, THERAPEUTIC DRUG MONITOR V58 .83 and COUMADIN PATIENT V58.61 [facility] [address] [place] [address] Aug, THERAPEUTIC DRUG MONITOR V58 .83 and COUMADIN PATIENT V58.61 [facility] [address] [place] [address] Aug, [facility] [address] [place] [address] Aug, CHEST PAIN NEC 786.59 and Ch est discomfort 786.59 [facility] [address] [place] [address] Aug, [facility] [address] [place] [address] Aug, THERAPEUTIC DRUG MONITOR V58 .83 and COUMADIN PATIENT V58.61 [facility] [address] [place] [address] Aug, [facility] [address] [place] [address] Aug, CASE MANAGEMENT [address] [place] [address] Aug, SURGERY [address] [place] [address] March, SURGERY [address] [place] [address] March, [facility] [address] [place], [place] [address] 07 Mar, 2007 SURGERY [address] [place] [address] March, [facility] [address] [place] [address] 18 Jan, 2007 Abdominal pain, left upper quadrant 789.02 [facility] [address] [place] [address] 13 Jan, 2007 [facility] [address] [place] [address] 21 Dec, 2006 [facility] [address] [place] [address] 12 Dec, 2006 FALL FROM SLIPPING NEC E885. 9 ; Pain in limb 729.5 and Low back pain 724.2 [facility] [address] [place] [address] Dec, [facility] [address] [place] [address] Dec, [facility] [address] [place] [address] Dec, Hypercholesterolemia 272.0 ; Atrial fibrillation 427.31 ; MIGRAINE 346.90 ; Chronic rhinitis 472.0 ; HTN [Hypertension] 401.9 and FATIGUE 780.79 [facility] [address] [place] [address] Nov, UNKNOWN Oct, [facility] [address] [facility] [place] [address] 29 Sep, 2006 Onchomycosis 110.[address] [facility] [address] [place] [address] 29 Sep, 2006 CASE MANAGEMENT [address] [place] [address] 16 Sep, 2006 [facility] [address] [place] [address] 11 Aug, 2006 CASE MANAGEMENT [address] [place] [address] 03 Aug, 2006 [facility] [address] [place] [address] 15 Jun, 2006 [facility] [address] [place] [address] 07 Jun, 2006 [facility] [address] [place] [address] 07 Jun, 2006 KNEE PAIN 719.46 ; Hypercholesterolemia NOS 272.4 ; Nonalcoholic fatty liver 571.8 and Atrial fibrillation 427.31 [facility] [address] [place] [address] 02 Jun, 2006 UNKNOWN May, Hyperlipidemia 272.4 [facility] [address] [place] [address] 19 Apr, 2006 [facility]ODIATRY- [facility] [address] [place] [address] 30 Mar, 2006 Ingrowing nail 703.0 and Onychomycosis 110.1 [facility] [address] [place] [address] March, Atrial fibrillation 427.31 a nd ACUTE OTITIS EXTERNA NEC 380.22 UNKNOWN March, [facility] [address] [place] [address] Jan, ORTHOPEDIC OFFICE [address] [place] [address] Jan, [facility] [address] [place] [address] Jan, [facility] [address] [place] [address] Jan, [facility]ODIATRY- [facility] [address] [place] [address] Dec, IMMUNIZATIONS Vaccine Route Administration Date Status Influenza HISTORY IM Intramuscular Aug 05, 2007 Admini stered SOCIAL HISTORY Qualifiers Date Never Smoker REASON FOR REFERRAL FUNCTIONAL STATUS PLAN OF CARE Activity Details VITAL SIGNS Height 70 in 2020-09-02 Height 70 in 2020-06-03 Height 70 in 2020-04-30 Height 70 in 2019-06-22 Height 70 in 2019-05-18 Height 70 in 2019-05-01 Height 70 in 2019-04-11 Height 70 in 2019-04-04 Height 70 in 2019-03-07 Height 70 in 2018-12-14 Height 70 in 2018-06-13 Height 70 in 2018-03-14 Height 70 in 2018-02-10 Height 70 in 2018-01-27 Height 70 in 2017-08-24 Height 70 in 2017-06-17 Height 70 in 2017-05-27 Height 70 in 2017-05-13 Height 70 in 2017-01-05 Height 70 in 2015-09-03 Height 70 in 2015-06-04 Height N/A in 2007-01-10 Height N/A in 2006-12-28 Weight 179.0 lbs 2020-09-02 Weight 174 lbs 2020-06-03 Weight 167 lbs 2020-04-30 Weight 160.4 lbs 2019-06-22 Weight 164.0 lbs 2019-05-18 Weight 162.0 lbs 2019-05-01 Weight 161.1 lbs 2019-04-11 Weight 163.4 lbs 2019-04-04 Weight 173.8 lbs 2019-03-07 Weight 173 lbs 2018-12-14 Weight 180.6 lbs 2018-06-13 Weight 183 lbs 2018-03-14 Weight 181.0 lbs 2018-02-10 Weight 176 lbs 2018-01-27 Weight 176.2 lbs 2017-08-24 Weight 177.4 lbs 2017-06-17 Weight 180.2 lbs 2017-05-27 Weight 183.4 lbs 2017-05-13 Weight 185.8 lbs 2017-01-05 Weight 186.0 lbs 2015-09-03 Weight 185.8 lbs 2015-06-04 Weight N/A lbs 2007-02-16 Weight N/A lbs 2007-01-10 Weight N/A lbs 2006-12-28 Weight N/A lbs 2006-06-07 Weight N/A lbs 2006-03-05 BMI 25.68 kg/m2 2020-09-02 BMI 24.96 kg/m2 2020-06-03 BMI 23.96 kg/m2 2020-04-30 BMI 23.01 kg/m2 2019-06-22 BMI 23.53 kg/m2 2019-05-18 BMI 23.24 kg/m2 2019-05-01 BMI 23.11 kg/m2 2019-04-11 BMI 23.44 kg/m2 2019-04-04 BMI 24.93 kg/m2 2019-03-07 BMI 24.82 kg/m2 2018-12-14 BMI 25.91 kg/m2 2018-06-13 BMI 26.25 kg/m2 2018-03-14 BMI 25.97 kg/m2 2018-02-10 BMI 25.25 kg/m2 2018-01-27 BMI 25.28 kg/m2 2017-08-24 BMI 25.45 kg/m2 2017-06-17 BMI 25.85 kg/m2 2017-05-27 BMI 26.31 kg/m2 2017-05-13 BMI 26.66 kg/m2 2017-01-05 BMI 26.69 kg/m2 2015-09-03 BMI 26.66 kg/m2 2015-06-04 BMI N/A kg/m2 2007-01-10 BMI N/A kg/m2 2006-12-28 Temperature 98.4 degrees Fahrenheit Temperature 98.1 degrees Fahrenheit Temperature 97.7 degrees Fahrenheit Temperature 98.5 degrees Fahrenheit Temperature 97.5 degrees Fahrenheit Temperature 97.0 degrees Fahrenheit Temperature 97.6 degrees Fahrenheit Temperature 98.7 degrees Fahrenheit Temperature 97.2 degrees Fahrenheit Temperature 98.1 degrees Fahrenheit Temperature 98.9 degrees Fahrenheit Temperature 98 degrees Fahrenheit 2018-03-14 Temperature 97.9 degrees Fahrenheit Temperature 97.7 degrees Fahrenheit Temperature 97.9 degrees Fahrenheit Temperature 97.6 degrees Fahrenheit Temperature 97.9 degrees Fahrenheit Temperature 97.4 degrees Fahrenheit Temperature 97.4 degrees Fahrenheit Temperature 96.7 degrees Fahrenheit Temperature 97.1 degrees Fahrenheit Temperature N/A degrees Fahrenheit 2007-01-30 8 Temperature N/A degrees Fahrenheit 2006-12-30 2 Temperature N/A degrees Fahrenheit 2006-12-03 7 Heart Rate 58 /min 2020-09-02 Heart Rate 52 /min 2020-06-03 Heart Rate 69 /min 2020-04-30 Heart Rate 64 /min 2019-06-22 Heart Rate 54 /min 2019-05-18 Heart Rate 57 /min 2019-05-01 Heart Rate 61 /min 2019-04-11 Heart Rate 56 /min 2019-04-04 Heart Rate 61 /min 2019-03-07 Heart Rate 60 /min 2018-12-14 Heart Rate 50 /min 2018-06-13 Heart Rate 56 /min 2018-03-14 Heart Rate 59 /min 2018-02-10 Heart Rate 60 /min 2018-01-27 Heart Rate 61 /min 2017-08-24 Heart Rate 55 /min 2017-06-17 Heart Rate 67 /min 2017-05-27 Heart Rate 64 /min 2017-01-05 Heart Rate 75 /min 2015-09-03 Heart Rate 60 /min 2015-06-04 Heart Rate N/A /min 2007-08-11 Heart Rate N/A /min 2007-08-08 Heart Rate N/A /min 2007-08-08 Heart Rate N/A /min 2007-02-16 Heart Rate N/A /min 2007-01-10 Heart Rate N/A /min 2006-12-28 Heart Rate N/A /min 2006-09-29 Heart Rate N/A /min 2006-06-07 Heart Rate N/A /min 2006-03-30 Heart Rate N/A /min 2006-03-05 Respiratory Rate 18 /min 2020-09-02 Respiratory Rate 18 /min 2020-06-03 Respiratory Rate 18 /min 2020-04-30 Respiratory Rate 18 /min 2019-06-22 Respiratory Rate 18 /min 2019-05-18 Respiratory Rate 18 /min 2019-05-01 Respiratory Rate 18 /min 2019-04-11 Respiratory Rate 18 /min 2019-04-04 Respiratory Rate 18 /min 2019-03-07 Respiratory Rate 16 /min 2018-12-14 Respiratory Rate 16 /min 2018-06-13 Respiratory Rate 17 /min 2018-03-14 Respiratory Rate 18 /min 2018-02-10 Respiratory Rate 17 /min 2018-01-27 Respiratory Rate 18 /min 2017-08-24 Respiratory Rate 18 /min 2017-06-17 Respiratory Rate 16 /min 2017-05-27 Respiratory Rate 16 /min 2017-05-13 Respiratory Rate 16 /min 2017-01-05 Respiratory Rate 18 /min 2015-09-03 Respiratory Rate N/A /min 2007-01-10 Respiratory Rate N/A /min 2006-12-28 Respiratory Rate N/A /min 2006-09-29 Respiratory Rate N/A /min 2006-06-07 Respiratory Rate N/A /min 2006-03-30 Respiratory Rate N/A /min 2006-03-05 Oximetry 95 % 2020-09-02 Oximetry 97 % 2020-06-03 Oximetry 99 % 2020-04-30 Oximetry 98 % 2019-06-22 Oximetry 98 % 2019-05-18 Oximetry 98 % 2019-05-01 Oximetry 99 % 2019-04-11 Oximetry 99 % 2019-04-04 Oximetry 99 % 2019-03-07 Oximetry 98 % 2018-12-14 Oximetry 100 % 2018-06-13 Oximetry 99 % 2018-03-14 Oximetry 97 % 2018-02-10 Oximetry 97 % 2018-01-27 Oximetry 96 % 2017-08-24 Oximetry 97 % 2017-06-17 Oximetry 98 % 2017-05-27 Oximetry 99 % 2017-05-13 Oximetry 99 % 2017-01-05 Oximetry 99 % 2015-09-03 Oximetry 97 % 2015-06-04 Oximetry N/A % 2007-02-16 Oximetry N/A % 2007-01-10 Oximetry N/A % 2006-09-29 Oximetry N/A % 2006-03-30 Blood pressure systolic 166 mm Hg Blood pressure diastolic 83 mm Hg 2020-09 MEDICATIONS Medication Instructions Dosage Frequency Start Date End Date Duration Status VOLTAREN TOPICAL 1% applied topically 4 times a day 2 g 6h 30 day(s) Active Triamcinolone Acetonide 0.025% applied topically 3 times a day 1 britany 8h Active Xarelto 10 MG Orally Once a day 1 tablet with food 24h 30 day(s) Active Omeprazole 20 mg orally 2 times a day 1 tab(s) 12h Active Synthroid 100 mcg (0.1 mg) orally once a day 1 tab(s) 24h Active Baclofen 10 mg orally once a day (at bedtime) 1 tab(s) Active Eliquis 5 mg orally 2 times a day 1 tab(s) 12h Not-Taki ng Levothyroxine Sodium 100 MCG Orally Once a day 1 tablet on an empty stomach in the morning 24h 30 day(s) Active oxyCODONE HCl 15 MG Orally every 4 hours as needed 1-2 tab(s) Active Acyclovir 200 mg orally 5 times a day for 7 days 1 cap(s) Active Tamsulosin HCl 0.4 MG Orally Once a day 1 capsule 24h 30 day(s) Active OMEGA-3 POLYUNSATURATED FATTY ACIDS ethyl esters 1000 mg orally 2 times a day 1 cap(s) 12h Active Gabapentin 300 MG Orally Once a day 1 capsule 24h 30 day(s) Active Lotrimin AF 1 % Externally Twice a day 1 application to affected area 12h 28 day(s) Active Flonase Allergy Relief 50 MCG/ACT Nasally Once a day 1 spray in each nostril 24h 30 day(s) Active TOPROL-XL 150 mg orally once a day 1.5 tab(s) 24h Active Centrum Silver Therapeutic Multiple Vitamins with Minerals orally once a day 1 tab(s) 24h Active Simvastatin 10 mg orally once a day (at bedtime) 1 tab(s) Active IMITREX NASAL 20 mg/inh intranasally once, as needed Active VERAPAMIL 120 mg/24 hours orally once a day 1 cap(s) 24h Active Neomycin-Polymyxi n-HC 1 % Otic Three times a day 4 drops into affected ear 8h Not-Taki ng PROCEDURES Procedure Date Ordered Result Body Site REMOVAL INGROWN TOENAIL Jun 13, 2018 REMOVAL INGROWN TOENAIL Jun 04, 2015 PROTHROMBIN TIME Aug 08, 2007 STERILE TRAY Jun 04, 2015 PROTHROMBIN TIME Aug 16, 2007 POD-xray foot, 3 views Sep 02, 2020 REMOVAL OF NAIL BED May 13, 2017 INTERP FOOT, 3 VIEWS Sep 02, 2020 REMOVAL INGROWN TOENAIL January 05, 2017 STERILE TRAY May 13, 2017 REMOVAL INGROWN TOENAIL Dec 14, 2018 [facility]([id number]) May 18, 2019 PROTHROMBIN TIME Aug 11, 2007 REMOVAL INGROWN TOENAIL Aug 24, 2017 REMOVAL OF NAIL BED January 27, 2018 COBAN TAPE ([id number]) January 27, 2018 PROTHROMBIN TIME Aug 23, 2007 [facility]([id number]) April 04, 2019 RESULTS Name Result Date Reference Range GO-Sbbmwuznwzk-VTOBSL 2007-08-23 INR 8.0 Protime 104.4 Goal INR range tablet size 5mg avg.qd dose 2.80 new avg.qd dose 2.96 Next INR due PT/INR 2007-08-16 KN-Pclpqeimoeb-YKXDFG 2007-08-16 INR 7.8 Protime 66.5 Goal INR range tablet size 5mg avg.qd dose 4.00 new avg.qd dose 0.00 Next INR due LIPID W/ CALCULATED LDL CHOLESTEROL TRIGLYCERIDE HDL LDL CALC LDL DIRECT CHOL/HDL zzCholesterol zzHdl zzTriglycerides zzChol/HDL LDL CALC* GC-Krvwygmzexf-JRCVTF 2007-08-11 INR 5.2 Protime 67.9 Goal INR range tablet size 5mg avg.qd dose 5.45 new avg.qd dose 4.00 Next INR due TROPONIN I MA-Xnaunstovop-LSSJPT 2007-08-08 INR 1.8 Protime 23.5 Goal INR range tablet size 5mg avg.qd dose 5.00 new avg.qd dose 5.45 Next INR due PT/INR 2007-08-05 CPK 2007-08-03 TROPONIN I 2007-08-03 TSH 2007-08-03 TSH 3.432 0.34-5.60 CREATININE 2007-08-02 eGFR 2007-08-02 BUN 2007-08-02 CBC WITH AUTO DIFF 2007-08-02 CPK 2007-08-02 LYTES 2007-08-02 Total CO2 30 22-32 TROPONIN I 2007-08-02 X ray: Humerus ALT ALT 25 17-63 TSH TSH 1.692 0.34-5.60 ALT ALT ALT ALT* ALT 2006-05-29 ALT 31 17-63 AST AST 46 AST* AST 2006-05-29 LIPID W/ CALCULATED LDL CHOLESTEROL 144 TRIGLYCERIDE 103 HDL 29 LDL CALC LDL DIRECT 98.1 CHOL/HDL 5.0 zzCholesterol zzHdl zzTriglycerides zzChol/HDL LDL CALC* LIPID W/ CALCULATED LDL 2006-05-29 BC-Xylowsazjfi-YYMNPK INR Protime Goal INR range tablet size avg.qd dose new avg.qd dose Next INR due KK-Uffojgcfhqu-XTKKAR INR Protime Goal INR range tablet size avg.qd dose new avg.qd dose Next INR due VX-Nosdfjqunmx-BANDRY INR Protime Goal INR range tablet size avg.qd dose new avg.qd dose Next INR due TROPONIN I TROP I,SEMI-QUANT TROPONIN I 0.016 TSH THYROID STIMULATING HORMONE 3.896 ZU-Fgrkzxnwfcd-OLMKSY INR Protime Goal INR range tablet size avg.qd dose new avg.qd dose Next INR due CBC WITH AUTO DIFF CORRECT ANC WBC 6.1 HGB 14.8 HCT 42.7 PLATELET 159 RBC 4.80 MCV 88.9 MCH 30.8 MCHC 34.6 RDW 11.9 MPV 9.5 ANC 3.4 #IG #LYMPH #EOS #MONO #BASO NEUTROPHIL % 55.2 IG% LYMPHOCYTE % 24.8 MONOCYTE % 13.7 EOSINOPHIL % 2.6 BASOPHIL % 3.7 ATYP LYMPH PLT MORPH PROMYELO MACRO MICRO NRBC HYPO BLAST ANISO BAND BASO EOS LYMPH META MONO MYELO POIK RBC MORPH SEG MANUAL DIFF #IMM GRAN %IMM GRAN COMPMET ALBUMIN 3.6 ALKPHOS 96 ALT 34 AST 38 BUN 16 CALCIUM 9.1 CHLORIDE 103 CARBON DIOXIDE 30 CREATININE STANDARDIZED 1.0 DIRECT BILIRUBIN 0.2 ESTIMATED GLOMERULAR FILTRATION GLUCOSE 104 POTASSIUM 4.2 SODIUM 138 TOTAL BILIRUBIN 0.7 TOTAL PROTEIN 6.3 EGFR INTERPRETATION BUN/CREAT CORRECT AGE zzGLUCOSE zzCREATININE zzSODIUM zzPOTASSIUM zzCHLORIDE zzCO2 zzCALCIUM zzTOTAL PROTEIN zzALBUMIN zzTOTAL BILI zzALT zzAST zzALKALINE PHOS BUN*/CREAT* CPK CPK 75 CPK* D-DIMER D-DIMER D DIME QUAL D-DIMER INTERPRETATION D-Dimer <100 TROPONIN I TROP I,SEMI-QUANT TROPONIN I 0.015 CULTURE BLOOD SEND TO ER: SEND TO IC? SEND TO PHARM?: CULTURE BLOOD Direct Exam SITE Culture-Blood #1 Culture-Blood #2 Culture-Blood #3 SOURCE: SEND TO PHARM? CULTURE BLOOD SEND TO ER: SEND TO IC? SEND TO PHARM?: CULTURE BLOOD Direct Exam SITE Culture-Blood #1 To Micro Culture-Blood #2 Culture-Blood #3 SOURCE: SEND TO PHARM? NL-Lrbihwdkzww-ZFLWXW INR Protime Goal INR range tablet size avg.qd dose new avg.qd dose Next INR due EX-Bgrboftsocc-GPSPBZ INR Protime Goal INR range tablet size avg.qd dose new avg.qd dose Next INR due TS-Oiaqhgezyfi-TPEAOF INR Protime Goal INR range tablet size avg.qd dose new avg.qd dose Next INR due IK-Xqrebcexrrr-VEWCSP INR Protime Goal INR range tablet size avg.qd dose new avg.qd dose Next INR due EQ-Iqbowaqgrkg-GZLDUU INR Protime Goal INR range tablet size avg.qd dose new avg.qd dose Next INR due IB-Jklfrvyphvi-DKXVAN INR Protime Goal INR range tablet size avg.qd dose new avg.qd dose Next INR due CREATININE Creatinine 1.0 EGFR BUN BUN BUN 14 BUN* CBC WITH AUTO DIFF CORRECT ANC WBC 6.0 HGB 15.4 HCT 44.5 PLATELET 164 RBC 5.00 MCV 88.9 MCH 30.8 MCHC 34.6 RDW 11.6 MPV 9.4 ANC 4.2 #IG #LYMPH #EOS #MONO #BASO NEUTROPHIL % 68.2 IG% LYMPHOCYTE % 20.8 MONOCYTE % 8.4 EOSINOPHIL % 1.8 BASOPHIL % 0.8 ATYP LYMPH PLT MORPH PROMYELO MACRO MICRO NRBC HYPO BLAST ANISO BAND BASO EOS LYMPH META MONO MYELO POIK RBC MORPH SEG MANUAL DIFF #IMM GRAN %IMM GRAN CHLORIDE CHLORIDE 105 TOTAL CO2 CARBON DIOXIDE 32 CPK CPK 71 CPK* POTASSIUM POTASSIUM 4.4 SODIUM SODIUM 143 SODIUM* PT/INR PT 13.1 INR PT-INR 1.38 PT-INR Interp Goal INR range GOAL INR RANGE TABLET SIZE AVG.QD DOSE NEW AVG.QD DOSE NEXT INR DUE TROPONIN I TROP I,SEMI-QUANT TROPONIN I <0.04 LIPID W/ CALCULATED LDL CHOLESTEROL 188 TRIGLYCERIDE 264 HDL 28 LDL CALC LDL DIRECT 122 CHOL/HDL zzCholesterol zzHdl zzTriglycerides zzChol/HDL LDL CALC* ZR-Yazsnxwttwl-XAXOGX INR Protime Goal INR range tablet size avg.qd dose new avg.qd dose Next INR due VQ-Aromuafilxo-GLUWIJ INR Protime Goal INR range tablet size avg.qd dose new avg.qd dose Next INR due NF-Mjneanjhlfg-ECTCCB INR Protime Goal INR range tablet size avg.qd dose new avg.qd dose Next INR due RAPID STREP SCREEN,IN OFFICE (2 Swab System) Result To Micro SS-Gbgjaqrlwlo-ITGNPI INR Protime Goal INR range tablet size avg.qd dose new avg.qd dose Next INR due EN-Xutdqkrexqx-MIUNRL INR Protime Goal INR range tablet size avg.qd dose new avg.qd dose Next INR due JN-Zlcpolcbrkg-EQVAQH INR Protime Goal INR range tablet size avg.qd dose new avg.qd dose Next INR due LC-Mvhimsezfrd-BKJATG INR Protime Goal INR range tablet size avg.qd dose new avg.qd dose Next INR due PT/INR PT 22.4 INR PT-INR 3.61 PT-INR Interp Goal INR range GOAL INR RANGE TABLET SIZE AVG.QD DOSE NEW AVG.QD DOSE NEXT INR DUE CBC WITH AUTO DIFF CORRECT ANC WBC 3.9 HGB 14.2 HCT 41.0 PLATELET 142 RBC 4.57 MCV 89.6 MCH 31.1 MCHC 34.7 RDW 11.6 MPV 10.4 ANC 2.2 #IG #LYMPH #EOS #MONO #BASO NEUTROPHIL % 55.6 IG% LYMPHOCYTE % 24.9 MONOCYTE % 10.4 EOSINOPHIL % 8.1 BASOPHIL % 1.0 ATYP LYMPH PLT MORPH PROMYELO MACRO MICRO NRBC HYPO BLAST ANISO BAND BASO EOS LYMPH META MONO MYELO POIK RBC MORPH SEG MANUAL DIFF #IMM GRAN %IMM GRAN DIGOXIN DIGOXIN 0.92 POTASSIUM POTASSIUM 4.4 PT/INR PT 15.4 INR PT-INR 1.83 PT-INR Interp Goal INR range GOAL INR RANGE TABLET SIZE AVG.QD DOSE NEW AVG.QD DOSE NEXT INR DUE DIGOXIN DIGOXIN 0.74 POTASSIUM POTASSIUM 4.3 PT/INR PT 13.2 INR PT-INR 1.37 PT-INR Interp Goal INR range GOAL INR RANGE TABLET SIZE AVG.QD DOSE NEW AVG.QD DOSE NEXT INR DUE TROPONIN I TROP I,SEMI-QUANT TROPONIN I <0.04 CREATININE Creatinine 0.9 EGFR BUN BUN BUN 18 BUN* DIGOXIN DIGOXIN 0.87 LYTES CHLORIDE 104 CARBON DIOXIDE 29 POTASSIUM 3.8 SODIUM 138 SODIUM* POTASSIUM* CHLORIDE* CO2* PT/INR PT 12.1 INR PT-INR 1.18 PT-INR Interp Goal INR range GOAL INR RANGE TABLET SIZE AVG.QD DOSE NEW AVG.QD DOSE NEXT INR DUE TROPONIN I TROP I,SEMI-QUANT TROPONIN I 0.03 POTASSIUM POTASSIUM 3.7 CBC WITH AUTO DIFF CORRECT ANC WBC 5.0 HGB 13.7 HCT 39.5 PLATELET 150 RBC 4.35 MCV 90.9 MCH 31.5 MCHC 34.6 RDW 12.2 MPV 10.3 ANC 3.1 #IG #LYMPH #EOS #MONO #BASO NEUTROPHIL % 61.0 IG% LYMPHOCYTE % 23.6 MONOCYTE % 10.8 EOSINOPHIL % 3.8 BASOPHIL % 0.8 ATYP LYMPH PLT MORPH PROMYELO MACRO MICRO NRBC HYPO BLAST ANISO BAND BASO EOS LYMPH META MONO MYELO POIK RBC MORPH SEG MANUAL DIFF #IMM GRAN %IMM GRAN PT/INR PT 11.3 INR PT-INR 1.02 PT-INR Interp Goal INR range GOAL INR RANGE TABLET SIZE AVG.QD DOSE NEW AVG.QD DOSE NEXT INR DUE TROPONIN I TROP I,SEMI-QUANT TROPONIN I 0.03 AMYLASE AMYLASE 56 CBC WITHOUT DIFF (Hemogram) MPV WBC 7.7 RBC 4.32 HGB 13.7 HCT 38.3 PLATELET 157 MCV 88.5 MCH 31.6 MCHC 35.8 RDW 12.1 MPV@L 9.9 CRP-INFLAM CRP INFLAMATION 3.6 LIVER FUNCTION TESTS ALBUMIN 3.4 ALKALINE PHOSPHATASE 90 ALT 46 AST 35 DIRECT BILIRUBIN 0.3 TOTAL BILIRUBIN 1.0 TOTAL PROTEIN 6.2 zzTOTAL BILI TOTAL PROTEIN* ALBUMIN* TOTAL BILI* DIRECT BILI* ALT* AST* ALKALINE PHOS* TROPONIN I TROP I,SEMI-QUANT TROPONIN I <0.04 SED RATE CORRECT SED RATE 13 CREATININE Creatinine 1.0 EGFR BUN BUN BUN 18 BUN* CBC WITH AUTO DIFF CORRECT ANC WBC 8.5 HGB 15.7 HCT 44.3 PLATELET 195 RBC 5.00 MCV 88.7 MCH 31.5 MCHC 35.5 RDW 12.0 MPV 10.5 ANC 5.7 #IG #LYMPH #EOS #MONO #BASO NEUTROPHIL % 67.5 IG% LYMPHOCYTE % 18.3 MONOCYTE % 11.8 EOSINOPHIL % 1.2 BASOPHIL % 1.2 ATYP LYMPH PLT MORPH PROMYELO MACRO MICRO NRBC HYPO BLAST ANISO BAND BASO EOS LYMPH META MONO MYELO POIK RBC MORPH SEG MANUAL DIFF #IMM GRAN %IMM GRAN CPK CPK 72 CPK* D-DIMER D-DIMER D DIME QUAL D-DIMER INTERPRETATION D-Dimer 105 LYTES CHLORIDE 101 CARBON DIOXIDE 24 POTASSIUM 4.0 SODIUM 138 SODIUM* POTASSIUM* CHLORIDE* CO2* PT/INR PT 10.8 INR PT-INR 0.95 PT-INR Interp Goal INR range GOAL INR RANGE TABLET SIZE AVG.QD DOSE NEW AVG.QD DOSE NEXT INR DUE TROPONIN I TROP I,SEMI-QUANT TROPONIN I <0.04 TSH THYROID STIMULATING HORMONE 2.15 UA-DIP W/REFLEX SOURCE BILIRUBIN NEG BLOOD NEG CLARITY CLEAR COLOR YELLOW GLUCOSE NEG KETONES NEG LEUKOCYTES NEG NITRITES NEG PH 5.5 PROTEIN NEG SPECIFIC GRAVITY 1.020 UROBILINOGEN 0.2 UROBILINOGEN D-DIMER D-DIMER D DIME QUAL D-DIMER INTERPRETATION D-Dimer NEGATIVE CREATININE Creatinine 1.0 EGFR BUN BUN BUN 14 BUN* CBC WITH AUTO DIFF CORRECT ANC WBC 6.3 HGB 15.4 HCT 43.6 PLATELET 152 RBC 4.86 MCV 89.8 MCH 31.7 MCHC 35.3 RDW 11.7 MPV 9.8 ANC 4.9 #IG #LYMPH #EOS #MONO #BASO NEUTROPHIL % 77.5 IG% LYMPHOCYTE % 14.5 MONOCYTE % 6.0 EOSINOPHIL % 1.7 BASOPHIL % 0.3 ATYP LYMPH PLT MORPH PROMYELO MACRO MICRO NRBC HYPO BLAST ANISO BAND BASO EOS LYMPH META MONO MYELO POIK RBC MORPH SEG MANUAL DIFF #IMM GRAN %IMM GRAN LYTES CHLORIDE 105 CARBON DIOXIDE 28 POTASSIUM 3.6 SODIUM 141 SODIUM* POTASSIUM* CHLORIDE* CO2* PT/INR PT 11.1 INR PT-INR 1.00 PT-INR Interp Goal INR range GOAL INR RANGE TABLET SIZE AVG.QD DOSE NEW AVG.QD DOSE NEXT INR DUE LIPID W/ CALCULATED LDL CHOLESTEROL 241 TRIGLYCERIDE 183 HDL 40 LDL CALC LDL DIRECT 162 CHOL/HDL zzCholesterol zzHdl zzTriglycerides zzChol/HDL LDL CALC* REASON FOR VISIT foot care follow up , patient states he has lump on left foot which is very painful. states he alsohas painfulcorn-type area on bottom of foot-KG, f/u orthotics and nail , pt states he is here for f/u foot pain, pt states he had to stop using alimeds given last visit, left foot pain referral done,Follow up , Last seen by WS on 06/22/19 for follow up of foot pain -HL , patient was given alimeds at last visit, size 3 -HL , pt states that he is inserts are worn out , he also states that they didn't work well , pt states that his left foot, ball area is all numb , pt states that his foot has been numb for a year or two now , f/u foot pain referral done, last seen by WS 05/18/19 for follow-up ofpermanent removal of the right hallux nail plate in the medial border of the left hallux nail plate, dispensed AliMeds at last visit , pt states he is here for bilat foot pain. states AliMeds make pain worse states cuts into Medial side of foot- KG, foot and toe bilat toe pain follow up, referral done, dressing supplies given at last visit for R hallux. advised on epsom salt soaks. has laila Castillo given note to excuse from work until further evaluation today, may need possible xrays per last note, pt states he still doing alimeds and are working well. he states he is out of dressing supplies and needs more-KG, Foot, toe pain bilateral f/u, referral done, Patient was last seen on 04/11/19 follow-up of permanent removal of the right hallux nail plate in the medial border of the left hallux nail plate. He's doing well but still has a fair amount of discomfort from these areas, does have a small what looked to be porokeratosis removed with debridement with application of topical phenol., pt states surgical shoes are working well. Still doing foot soaks mostly every day. wants to know about supportive footwear-KG, Has brand new pair of wide nike's size 11-KG, short term disability,postop #2 bilateral hallux permanent removal, Referral Done, pt last seen by WS on 04/04/2019 for Post Op 1, DOS 03/29/2019: Partial matrixectomy medial lateral aspect right hallux and medial aspect left hallux, Surgical dressing removed and new dressing applied, pt to soak feet daily in epsom salts and change dressings, AliMeds size 4 dispensed at last visit to shift weight into the arch region, pt states he is here for a post op 2 , pt states left side is doing well, right is still hard to put pressure on , pt states he is still changing the dressing daily and soaking feet daily in epsom salts, pt is still concerned of why the right great toe is still hurting more than the left, pt states he is still using the AliMeds given at last visit, says they do hurt a little, postop #1 bilater hallux permanent removal, referral done, last seen by WS 03/07/19 for pre op ingrown toenail, DOS:03/29/19 Partial matrixectomy medial lateral aspect right hallux and medial aspect left hallux, pt states he is here for f/u on bilateral ingrown toenails bilaterally, pt states he is in a lot of pain on the plantar aspect of his feet bilaterally, pt states the left toe is doing better than right toe, pt states you were going to discuss the keratosis on the plantar aspect of his right foot, Work note, (Laura weiss) Right hallux medial lateral aspect partial matrixectomy and left hallux medial aspect, bilater hallux permanent removal, Return call, update meds , Questions upcoming surgery, nailcare, referral done, pt states he is here for nailcare, 03/02 jl - appt 03/02 avail placeholdered followup wtih [place] sooner than 03/08 if avail on wed/, nailcare referral done. ok per dg, pt states that his great right toe is messed up, nailcare referral done, pt called to r.s due to illness JEN, Toenail issue, Referral Done, last seen 03/14/2018 WS- porokeratosis, pt states that he thinks his right great toenail is infected and ingrown, pt's great right toenail is lifting and is painful, in grown toenail, Referral Done, pt last seen by WS 03/14/18 for painful area ball of left foot , Painful area ball of left foot, Referral Done, Growth bottom of foot, Abx, 2 weeks f/u, Referral Done, f/u ingrown toenail, Left big toe., Pt sttaes he has spasming of left big toe off and on., Ingrown toenail, --Ingrown toenail, Referral Done, pt states he is here for a possible infected ingrown toenail in his L great toe, 2 mo f/u , Pt c/o ingrown right big toenail; no infection noted., f/u , Almost done with antibiotics; toe is still painful w/ pressure., 2 week f/u , Pt states he thinks his great toenail left foot may be infected, had ingrown toenail removed 2 weeks ago, Toe purple and swollen, nail care, referral done , Medications reviewed w/pt,med. list is correct -KMM, Nail Care, Referral Done, Updating patient chart, Ingrown toenail (wants to keep appt in January), Referral Done, pt feels he has an ingrown toenail inside of Right great toe., Medications reviewed w/pt,med. list is correct-AB, Appt at [facility] podiatry for Ingrown Toenail, f/u ingrown toe nail, Referral Done, Pt had issues with right hallux, going better. What he did last time helped. JL, Ingrowing nail , Referral Done, Pt states Right halluxnail ongoing issues, was very red, swollen, possibly infected. Nail is white half way up not reallyattached to toe. JV, today's appt, Right great toenail infection, blood draw, [facility]IN CLINIC, LAB,COUMADIN, COUMADIN CLINIC, blood draw, coumadin clinic, COUMADIN CLINIC, need order, afib, D/C planning, COLONOSCOPY, COLONOSCOPY, PAT, luq pain per Dr Mckeon Ct scan done, luq pain--ct needs to be scanned, l elbow pain, see below, FELL ON ICE wednesday, Pain to left side of the knee, left arm, left lower back, took advil, and yesterday increased methadone., Recall list, Please call - ASA, medication and history review, Migraines, with flashing lights to one eye, Runny nose, clear , S/P hospitalization in [facility] ( HX. afib ), WHA/PAP WILL , Refill--Toprol XL & Crestor, R GREAT TOE F/U Partial Removal of Toenail, Fungus of right Great toe?, ABD CT W/ CONTRAST, RECIVED TOPROL XL, WHA/PAP WILL EXP, call Re: labs, R knee pain, BW-cholesterol, May labs, REMOVED INGROWN 2MO SORE AND GROWTH ON TOENAIL, FOLLOW UP ELBOW, f/u hosp for afib s/p cardioversion, not feeling well, l-elbow pain?infection cellulitus, elbow swelling, MRI-L WITH GADDO Insurance Providers Health Insurance Type Health Plan Insurance Address Health Plan Insurance Phone Health Plan Insurance Name Health Plan Coverage Dates Member ID Patient Relationship to Subscriber Patient Address Patient Phone Patient Name Patient Date of Subscriber ID Subscriber Name Subscriber Date of Group No [place] [facility] [id number] S-[place] OVIDIO TOMIGAILT [id number] MEDICARE 3000 GOFFS [facility] AZLE [id number] MEDICARE self OVIDIO TOMIGAILT [id number] [place] [address] [facility] [id number] [phone] 4^MAIN [place] OVIDIO TOMIGAILT [id number] SELF PAY AFTER MEDICARE ANY [facility] [id number] SELF PAY AFTER MEDICARE self OVIDIO ROHNERT [id number] SELF PAY AFTER MEDICARE ANY [facility] [id number] SELF PAY AFTER MEDICARE self OVIDIO ROHNERT [id number] SELF PAY NO INSURANCE ANY [facility] [id number] SELF PAY NO INSURANCE self OVIDIO IRMAT [id number] [place] [facility] [id number] [phone] S-[place] [id number] [place] [address] [facility] [id number] [phone] 4^MAIN [place] OVIDIO ROHNERT [id number] SELF PAY NO INSURANCE ANY [facility] [id number] SELF PAY NO INSURANCE self OVIDIO MINOR [id number] SELF PAY AFTER MEDICARE ANY [facility] [id number] SELF PAY AFTER MEDICARE self OVIDIO MINOR [id number]
--- OUTSIDE RECORDS SUMMARY | 2023-02-19 15:16 | XMS_ITS | CCD ---
Author Name Unknown Address [address] [place] [address] [phone] Organization Unknown Address [address] [place] [address] [phone] Care Team Providers Care Research Physiologist Name Role Phone CRISTIANO WORKMAN Attending Physician [phone] Vital Signs Unknown or Not Available. Allergies Allergy Code Allergy Type Reaction Status AMBIEN 357529 Drug allergy ALTERED MENTAL STATUS A ctive AMITRIPTYLINE HCL 704 Drug allergy PALPITATIONS Act north Procedures Unknown or Not Available. History of Immunizations Unknown or Not Available. Problems Problem Code Start Date Resolved Date Status High cholesterol 32616209 07/31/2022 Resolved GERD 251438714 07/31/2022 Resolved Hypothyroidism 67959706 07/31/2022 Resolved BPH 825692846 07/31/2022 Resolved Migraine 34941125 07/31/2022 Resolved AFIB 73324452 07/31/2022 Resolved Thrombocytopenia 133453376 07/31/2022 Resolved Results Unknown or Not Available. Active Medications Medication Code Dose Units Frequency Route Modificatio n Start Date/Time Baclofen 10MG Oral Tablet 437459 10 MILLIGRAMS NEEDED, DAILY ORAL 10/28/2017 18:36 Prescription Detail TAKE 10 MILLIGRAMS ORAL NEEDED, DAILY Metoprolol Succinate 50MG Oral Tablet, Extended Release [id number] 150 MILLIGRAMS DAILY ORAL 7 18:36 Prescription Detail TAKE 150 MILLIGRAMS ORAL DAILY OMEPRAZOLE 20MG ORAL TABLET, DELAYE 0 20 MILLIGRAMS TWICE A DAY ORAL 017 18:36 Prescription Detail TAKE 20 MILLIGRAMS ORAL TWICE A DAY VERAPAMIL ER 120 MG TABLET 0 120 MILLIGRAMS BEDTIME ORAL 10/28 18:36 Prescription Detail TAKE 120 MILLIGRAMS ORAL BEDTIME Synthroid 100MCG Oral Tablet 866434 100 MICROGRAM Q7AM BY MOUTH 08/27/2016 12:39 Prescription Detail TAKE 100 MICROGRAM BY MOUTH Q7AM Medications Administered During Visit Unknown or Not Available. Encounters Encounter Diagnosis Diagnosis Code Start Date Chronic migraine without aur a, intractable, without status migrainosus [id number] 06/13/2021 Social History Smoking Status Code Start Date End Date Never smoker [id number] Patient Decision Aids Unknown or Not Available. Discharge Instructions You were admitted to [facility] on 06/13/2021 12:04 with a principal diagnosis of Chronic migraine without aura, intractable, without status migrainosus You were discharged from [facility] on 06/13/2021 12:05 Should you have any questions prior to [...]
--- OUTSIDE RECORDS SUMMARY | 2023-02-19 15:16 | XMS_ITS | CCD ---
Author Name Unknown Address [address] [place] [address] [phone] Organization Unknown Address [address] [place] [address] [phone] Care Team Providers Care Employment Educational Coord Name Role Phone CRISTIANO WORKMAN Attending Physician [phone] Vital Signs Unknown or Not Available. Allergies Allergy Code Allergy Type Reaction Status AMBIEN 948280 Drug allergy ALTERED MENTAL STATUS A ctive AMITRIPTYLINE HCL 704 Drug allergy PALPITATIONS Act north Procedures Unknown or Not Available. History of Immunizations Unknown or Not Available. Problems Problem Code Start Date Resolved Date Status High cholesterol 30033419 07/31/2022 Resolved GERD 439271156 07/31/2022 Resolved Hypothyroidism 20123791 07/31/2022 Resolved BPH 041871919 07/31/2022 Resolved Migraine 72876133 07/31/2022 Resolved AFIB 90486677 07/31/2022 Resolved Thrombocytopenia 339368808 07/31/2022 Resolved Results Unknown or Not Available. Active Medications Medication Code Dose Units Frequency Route Modificatio n Start Date/Time Baclofen 10MG Oral Tablet 347475 10 MILLIGRAMS NEEDED, DAILY ORAL 10/28/2017 18:36 Prescription Detail TAKE 10 MILLIGRAMS ORAL NEEDED, DAILY Metoprolol Succinate 50MG Oral Tablet, Extended Release [id number] 150 MILLIGRAMS DAILY ORAL 7 18:36 Prescription Detail TAKE 150 MILLIGRAMS ORAL DAILY OMEPRAZOLE 20MG ORAL TABLET, DELAYE 0 20 MILLIGRAMS TWICE A DAY ORAL 017 18:36 Prescription Detail TAKE 20 MILLIGRAMS ORAL TWICE A DAY VERAPAMIL ER 120 MG TABLET 0 120 MILLIGRAMS BEDTIME ORAL 10/28 18:36 Prescription Detail TAKE 120 MILLIGRAMS ORAL BEDTIME Synthroid 100MCG Oral Tablet 718631 100 MICROGRAM Q7AM BY MOUTH 08/27/2016 12:39 Prescription Detail TAKE 100 MICROGRAM BY MOUTH Q7AM Medications Administered During Visit Unknown or Not Available. Encounters Encounter Diagnosis Diagnosis Code Start Date Chronic migraine without aur a, intractable, without status migrainosus D06310 07/11/2021 Social History Smoking Status Code Start Date End Date Never smoker [id number] Patient Decision Aids Unknown or Not Available. Discharge Instructions You were admitted to [facility] on 07/11/2021 12:22 with a principal diagnosis of Chronic migraine without aura, intractable, without status migrainosus You were discharged from [facility] on 07/11/2021 12:22 Should you have any questions prior to [...]
[2023-02-19 19:23] LABS: Bacteria Negative HPF (Negative); C & S Indicated? No; Casts Negative LPF (Negative); Crystals Negative HPF (Negative); Epithelial Cells Negative HPF (Negative); Mucus Negative (Negative); RBC 0-2 HPF (0-2); WBC Negative HPF (0-5)
[2023-02-19 19:34] LABS: TSH (W/Ref FT4) 1.34 uIU/mL (0.36-3.74)
[2023-02-19 19:35] LABS: Hemoglobin A1C 5.4 % (<5.7)
[2023-02-22 10:16] LABS: PSA, Screening 0.8 ng/mL (<=6.5)
== END 2023-02-19 15:13 | disposition home or self-care (01) ==
LOC: NCHCN 15:12
PROVIDERS: PCP Family Medicine; Visit Provider Family Medicine
DX: E03.9 Hypothyroidism, unspecified (principal); R36.1 Hematospermia; R31.21 Asymptomatic microscopic hematuria; Z12.5 Encounter for screening for malignant neoplasm of prostate; Z79.899 Other long term (current) drug therapy
CPT/HCPCS: 84153; 81015; 83036; 84443

== ENCOUNTER 2023-03-18 14:40 | Outpatient (CLI) | payer MEDICARE, BC, SELFPAY ==
[2023-03-18 15:39] LABS: ESR < 1 mm/hr (0-20)
[2023-03-18 16:00] LABS: C-Reactive Protein 0.05 mg/dL (0.0-0.3)
[2023-03-19 18:56] LABS: Rheumatoid Factor <8.6 IU/mL (<12.0)
[2023-03-23 13:50] LABS: dsDNA Ab, IgG 30.1 IU/mL (<30.0)
== END 2023-03-18 14:41 | disposition home or self-care (01) ==
PROVIDERS: PCP Family Medicine; Visit Provider Family Medicine
DX: D69.6 Thrombocytopenia, unspecified (principal); R76.0 Raised antibody titer; M54.59 Other low back pain
CPT/HCPCS: 36415; 85652; 86140; 86225; 86431

== ENCOUNTER 2023-07-29 10:03 | Outpatient (CLI) | payer MEDICARE, BC, SELFPAY ==
[2023-07-29 10:19] VITALS: BP 153/88; PULSE 56; RESP 20; TEMP 36.6; O2SAT 98
--- NOTE | 2023-07-29 11:01 | PDOC.PAIN_ITS ---
Date of service: 07/29/23 Time of Service: 11:01 Pain Managment Procedure Note Procedure Note Procedure Note: PROCEDURE NOTE RIGHT GENICULAR NERVE BLOCKS Date of Service: July 29, 2023 Patient: Malik Machado Provider: Librado Robles DO, MPH Malik Machado has been referred to the [facility] for Right genicular nerve block. Pre-operative diagnosis: Pain in right knee M25.561 Post-operative diagnosis: Same Pre-Procedure Pain: VAS=8/10 COMMENTS: He continued the Xarelto per ROSELIA Guidelines. He has had previous right TKA. PROCEDURE: 1. Block of the Superolateral genicular branch from the vastus lateralis 2. Block of the Superomedial genicular branch from the vastus medialis 3. Block of the Inferomedial genicular branch from the saphenous nerve 4. Block of the Terminal branch of the nerve vastus intermedius Malik was interviewed and the medical record reviewed. There were no medical, pharmacologic, radiographic or other structural contraindications to attempting fluoroscopically guided Right genicular nerve block. Risks and potential side effects as well as potential benefit of the procedure were reviewed with Malik Machado , and the patient's voiced concerns were addressed. After I believed that the patient was completely informed, the printed consent form was signed. Standard time-out procedure was performed. After a thorough Chlorhexadine preparation of the skin and draping the skin entry points for approaching Right superolateral genicular nerve, the superomedial genicular nerve, nerve of the vastus intermedius and the inferomedial genicular was identified under the most advantageous fluoroscopic view and marked. Next, 3.5 25G spinal needle was advanced to os at the location of the specific nerve root using fluoroscopic guidance. Next 0.5 cc of 0.5% Bupivacain was injected at each site. There was no unusual discomfort expressed by Malik. The needles were withdrawn without difficulty. Malik was observed and was without hemodynamic, neurologic, or allergic reactions.? Fluoroscopic images were digitally archived. Malik's vital signs were stable throughout the procedure and were as recorded in the docflowsheet by the nursing staff. If given, dosages of intravenous drugs for anxiolysis and analgesia were documented in MAR. Follow up plans and appointments were discussed. Malik was instructed to keep careful note of how the usual pain was modified by these injections. Specifically, Malik was asked to keep a pain diary for the next 4 hours using a numeric pain scale of 0-10 and report these results. Post procedure instruction was given as documented in nursing documentation and having met discharge criteria, Malik was discharged from the [facility]. COMMENTS: No apparent complications. Post-procedure pain: VAS= 3/10. Malik will call back with 0-4 hour post-procedure pain scores. He was able to move his knee much easier. I personally completed the entire procedure. LIBRADO ROBLES DO, MPH ABPM&R - Subspecialty board certification in Pain Medicine [facility]
--- NOTE | 2023-07-29 11:04 | DI.RAD_ITS ---
Exam(s) XR PAIN CLINIC FLUORO JOINT IN EXAM: XR PAIN CLINIC FLUORO JOINT IN CLINICAL HISTORY: Dx: Osteoarthritis of the knee. TECHNIQUE: 2D and realtime digital imaging was performed. CONTRAST MATERIAL: Oral barium Oral water soluble contrast was administered. COMPARISON: No exams were available for comparison FINDINGS: Fluoroscopy provided during pain management therapy. See procedure report for details. IMPRESSION: RADIATION DOSE DELIVERED: Zevr=2.44mGy
[2023-07-29 11:13] VITALS: PULSE 67; O2SAT 100
[2023-07-29] MEDS: Bupivacaine 0.5% Pres-Free 10 ML VIAL IJ (11:25)
[2023-07-29] MEDS: Omnipaque 240 MG/ML 50 ML BTL IJ (11:26)
== END 2023-07-29 10:04 | disposition home or self-care (01) ==
PROVIDERS: PCP Family Medicine; Visit Provider Preventive Medicine Occupational Medicine
DX: M25.561 Pain in right knee (principal)
CPT/HCPCS: 64454; 64510; 77002; Q9967

== ENCOUNTER 2023-09-16 21:53 | Outpatient (REF) | payer MEDICARE, BC, SELFPAY ==
[2023-09-16 21:11] LABS: Source Nasal/Nares
--- OUTSIDE RECORDS SUMMARY | 2023-09-16 21:55 | XMS_ITS | CCD ---
Author Name Unknown Address [address] [place] [address] [id number] Organization Unknown Address [address] [place] [address] [phone] Care Team Providers Care Litharge Mill Operator Name Role Phone CHARIS WORKMAN Attending Physician [phone] Vital Signs Unknown or Not Available. Allergies Allergy Code Allergy Type Reaction Status AMBIEN 897684 Drug allergy ALTERED MENTAL STATUS A ctive AMITRIPTYLINE HCL 704 Drug allergy PALPITATIONS Act north Procedures Unknown or Not Available. History of Immunizations Unknown or Not Available. Problems Unknown or Not Available. Results Unknown or Not Available. Active Medications Medication Code Dose Units Frequency Route Modificatio n Start Date/Time Baclofen 10MG Oral Tablet [id number] 10 MILLIGRAMS NEEDED, DAILY ORAL 10/28/2017 18:36 Prescription Detail TAKE 10 MILLIGRAMS ORAL NEEDED, DAILY Metoprolol Succinate 50MG Oral Tablet, Extended Release [id number] 150 MILLIGRAMS DAILY ORAL 7 18:36 Prescription Detail TAKE 150 MILLIGRAMS ORAL DAILY OMEPRAZOLE 20MG ORAL TABLET, DELAYE 0 20 MILLIGRAMS TWICE A DAY ORAL 017 18:36 Prescription Detail TAKE 20 MILLIGRAMS ORAL TWICE A DAY VERAPAMIL ER 120 MG TABLET 0 120 MILLIGRAMS BEDTIME ORAL 10/28 18:36 Prescription Detail TAKE 120 MILLIGRAMS ORAL BEDTIME Synthroid 100MCG Oral Tablet 839548 100 MICROGRAM Q7AM BY MOUTH 08/27/2016 12:39 Prescription Detail TAKE 100 MICROGRAM BY MOUTH Q7AM Medications Administered During Visit Unknown or Not Available. Encounters Encounter Diagnosis Diagnosis Code Start Date Chronic migraine without aur a, intractable, without status migrainosus [id number] 07/08/2023 Social History Smoking Status Code Start Date End Date Never smoker [id number] Patient Decision Aids Unknown or Not Available. Discharge Instructions You were admitted to [facility] on 07/08/2023 12:41 with a principal diagnosis of Chronic migraine without aura, intractable, without status migrainosus You were discharged from [facility] on 07/08/2023 12:41 Should you have any questions prior to [...]
--- OUTSIDE RECORDS SUMMARY | 2023-09-16 21:55 | XMS_ITS | CCD ---
Author Name Unknown Address [address] [place] [address] [phone] Organization Unknown Address [address] [place] [address] [phone] Care Team Providers Care Civilian Jail Officer Name Role Phone EJ [place] Attending Physician [phone] EJ J[place] Er Physician [phone] PHOEBE Tubbs Registered Nurse [phone] Vital Signs Vital Sign Value Unit Date/Time Recent/Initial ? BP Systolic 183 mmHg 05/13/2023 15:52 Initial VS BP Diastolic 97 mmHg 05/13/2023 15:52 Initia l VS Heart Rate 70 bpm 05/13/2023 15:52 Initial VS O2 % BldC Oximetry 99 % 05/13/2023 15:52 Initial VS Respiratory Rate 18 bpm 05/13/2023 17:42 In itial VS BP Systolic 178 mmHg 05/13/2023 18:18 Most Re cent VS BP Diastolic 98 mmHg 05/13/2023 18:18 Most R ecent VS Respiratory Rate 16 bpm 05/13/2023 18:[address] Recent VS Heart Rate 78 bpm 05/13/2023 18:18 Most Rec ent VS O2 % BldC Oximetry 97 % 05/13/2023 18:18 Most Recent VS Body Temperature 36.6 degrees 05/13/2023 18:18 In itial VS Allergies Allergy Code Allergy Type Reaction Status AMBIEN 459400 Drug allergy ALTERED MENTAL STATUS A ctive AMITRIPTYLINE HCL 704 Drug allergy PALPITATIONS Act north Procedures Unknown or Not Available. History of Immunizations Unknown or Not Available. Problems Unknown or Not Available. Results Unknown or Not Available. Active Medications Medications Administered During Visit Medication Dose Units Frequency Route Date/Time of Last Dose HYDROmorphone INJ SYRINGE: 0.5MG/0.5ML 0.5 MG X1 IVP 05/13/2023 17:4 1 Encounters Encounter Diagnosis Diagnosis Code Start Date Contusion of right chest wall [id number] 05/13/2023 Social History Smoking Status Code Start Date End Date Never smoker [id number] Patient Decision Aids Unknown or Not Available. Discharge Instructions You were admitted to [facility] on 05/13/2023 15:04 with a principal diagnosis of Contusion of right front wall of thorax, initial encounter You were discharged from [facility] on 05/13/2023 18:18 Should you have any questions prior to discharge, please contact a member of your healthcare team. If you have left the hospital and have any questions, please contact your primary care physician. Chief Complaint and Reason For Visit Chief Complaint Date of Onset LT RIBCAGE AND FACE 05/17/2023 Function Status Unknown or Not Available. Plan of Care Unknown or Not Available. Referral/Transition of Care Unknown or Not Available.
--- OUTSIDE RECORDS SUMMARY | 2023-09-16 21:55 | XMS_ITS | CCD ---
Author Name Unknown Address [address] [place] [address] [id number] Organization Unknown Address [address] [place] [address] [id number] Care Team Providers Care Color Corrector Name Role Phone CINDI KINCAID Juana Attending Physician [phone] Vital Signs Unknown or Not Available. Allergies Allergy Code Allergy Type Reaction Status AMBIEN 903745 Drug allergy ALTERED MENTAL STATUS A ctive AMITRIPTYLINE HCL 704 Drug allergy PALPITATIONS Act north Procedures Unknown or Not Available. History of Immunizations Unknown or Not Available. Problems Unknown or Not Available. Results BASIC METABOLIC PANEL (BMP) - Collect Date/Time: 07/16/2023 14:16 Test Name Code Test Result Test Units Test Ref Rang e GLUCOSE 2345-7 100 mg/dL L=70 H=116 BUN 3094-0 22 mg/dL L=6 H=25 CREATININE 2160-0 1.43 mg/dL L=0.67 H=1.17 SODIUM SERUM 2951-2 138 mmol/L L=136 H=145 POTASSIUM SERUM 2823-3 5.3 mmol/L L=3.4 H=5 .2 CHLORIDE SERUM 2075-0 103 mmol/L L=96 H=110 CARBON DIOXIDE (CO2) 2028-9 32 mmol/L L=22 H=34 ANION GAP 54510-3 2.8 mmol/L CALCIUM SERUM 36020-0 9.3 mg/dL L=8.2 H=10. 2 AGE 73 years eGFR (non-Afr.Amer.) 81400-4 49 mL/min eGFR (Afr-Ecuadorean) 08137-6 59 mL/min Active Medications Medication Code Dose Units Frequency Route Modificatio n Start Date/Time Baclofen 10MG Oral Tablet [id number] 10 MILLIGRAMS NEEDED, DAILY ORAL 10/28/2017 18:36 Prescription Detail TAKE 10 MILLIGRAMS ORAL NEEDED, DAILY Metoprolol Succinate 50MG Oral Tablet, Extended Release [id number] 150 MILLIGRAMS DAILY ORAL 7 18:36 Prescription Detail TAKE 150 MILLIGRAMS ORAL DAILY OMEPRAZOLE 20MG ORAL TABLET, DELAYE 0 20 MILLIGRAMS TWICE A DAY ORAL 017 18:36 Prescription Detail TAKE 20 MILLIGRAMS ORAL TWICE A DAY VERAPAMIL ER 120 MG TABLET 0 120 MILLIGRAMS BEDTIME ORAL 10/28 18:36 Prescription Detail TAKE 120 MILLIGRAMS ORAL BEDTIME Synthroid 100MCG Oral Tablet [id number] 100 MICROGRAM Q7AM BY MOUTH 08/27/2016 12:39 Prescription Detail TAKE 100 MICROGRAM BY MOUTH Q7AM Medications Administered During Visit Unknown or Not Available. Encounters Encounter Diagnosis Diagnosis Code Start Date Disorder of kidney and/or ureter [id number] 07/16/2023 Social History Smoking Status Code Start Date End Date Never smoker [id number] Patient Decision Aids Unknown or Not Available. Discharge Instructions You were admitted to [facility] on 07/16/2023 14:15 with a principal diagnosis of Disorder of kidney and ureter, unspecified You had the following tests done:BASIC METABOLIC PANEL (BMP) You were discharged from [facility] on 07/16/2023 14:15 Should you have any questions prior to [...]
--- OUTSIDE RECORDS SUMMARY | 2023-09-16 21:55 | XMS_ITS | CCD ---
Author Name Unknown Address [address] [place] [address] [phone] Organization Unknown Address [address] [place] [address] [phone] Care Team Providers Care Community Outreach Director Name Role Phone CHARIS WORKMAN Attending Physician [phone] Vital Signs Unknown or Not Available. Allergies Allergy Code Allergy Type Reaction Status AMBIEN 859426 Drug allergy ALTERED MENTAL STATUS A ctive AMITRIPTYLINE HCL 704 Drug allergy PALPITATIONS Act north Procedures Unknown or Not Available. History of Immunizations Unknown or Not Available. Problems Unknown or Not Available. Results Unknown or Not Available. Active Medications Medication Code Dose Units Frequency Route Modificatio n Start Date/Time Baclofen 10MG Oral Tablet [id number] 10 MILLIGRAMS NEEDED, DAILY ORAL 10/28/2017 18:36 Prescription Detail TAKE 10 MILLIGRAMS ORAL NEEDED, DAILY Metoprolol Succinate 50MG Oral Tablet, Extended Release [id number] 150 MILLIGRAMS DAILY ORAL 7 18:36 Prescription Detail TAKE 150 MILLIGRAMS ORAL DAILY OMEPRAZOLE 20MG ORAL TABLET, DELAYE 0 20 MILLIGRAMS TWICE A DAY ORAL 017 18:36 Prescription Detail TAKE 20 MILLIGRAMS ORAL TWICE A DAY VERAPAMIL ER 120 MG TABLET 0 120 MILLIGRAMS BEDTIME ORAL 10/28 18:36 Prescription Detail TAKE 120 MILLIGRAMS ORAL BEDTIME Synthroid 100MCG Oral Tablet [id number] 100 MICROGRAM Q7AM BY MOUTH 08/27/2016 12:39 Prescription Detail TAKE 100 MICROGRAM BY MOUTH Q7AM Medications Administered During Visit Unknown or Not Available. 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 Discharge Instructions You were admitted to [facility] on 02/24/2023 10:55 with a principal diagnosis of Occlusion and stenosis of bilateral carotid arteries You were discharged from [facility] on 02/24/2023 10:55 Should you have any questions prior to discharge, please contact a member of your healthcare team. If you have left the hospital and have any questions, please contact your primary care physician. Chief Complaint and Reason For Visit Chief Complaint Date of Onset APHASIA Function Status Unknown or Not Available. Plan of Care Unknown or Not Available. Referral/Transition of Care Unknown or Not Available.
--- OUTSIDE RECORDS SUMMARY | 2023-09-16 21:55 | XMS_ITS | CCD ---
Author Name Unknown Address [address] [place] [address] [id number] Organization Unknown Address [address] [place] [address] [phone] Care Team Providers Care Vrt Mechanic Name Role Phone CHARIS WORKMAN Attending Physician [phone] Vital Signs Unknown or Not Available. Allergies Allergy Code Allergy Type Reaction Status AMBIEN 371170 Drug allergy ALTERED MENTAL STATUS A ctive AMITRIPTYLINE HCL 704 Drug allergy PALPITATIONS Act north Procedures Unknown or Not Available. History of Immunizations Unknown or Not Available. Problems Unknown or Not Available. Results COMPREHENSIVE METABOLIC PANE L (CMP) - Collect Date/Time: 05/31/2023 13:05 Test Name Code Test Result Test Units Test Ref Rang e GLUCOSE 2345-7 111 mg/dL L=70 H=116 BUN 3094-0 20 mg/dL L=6 H=25 CREATININE 2160-0 1.47 mg/dL L=0.67 H=1.17 SODIUM SERUM 2951-2 141 mmol/L L=136 H=145 POTASSIUM SERUM 2823-3 4.5 mmol/L L=3.4 H=5 .2 CHLORIDE SERUM 2075-0 106 mmol/L L=96 H=110 CARBON DIOXIDE (CO2) 2028-9 28 mmol/L L=22 H=34 ANION GAP 63456-0 7.3 mmol/L CALCIUM SERUM 77758-8 8.9 mg/dL L=8.2 H=10. 2 BILIRUBIN TOTAL 1975-2 0.4 mg/dL L=0.0 H=1 .3 ALK. PHOS. 6768-6 131 U/L L=46 H=116 SGOT (AST) 1920-8 36 U/L L=15 H=37 SGPT (ALT) 1742-6 23 U/L L=12 H=78 TOTAL PROTEIN 2885-2 6.6 gm/dL L=6.0 H=8.0 ALBUMIN 1751-7 3.5 gm/dL L=3.4 H=5.0 AGE 73 years eGFR (non-Afr.Amer.) 84199-3 47 mL/min eGFR (Afr-Montenegrin) 10091-2 57 mL/min TEGRETOL (CARBAMAZEPINE) - C ollect Date/Time: 05/31/2023 13:05 Test Name Code Test Result Test Units Test Ref Rang e CARBAMAZEPINE 3432-2 2.4 mcg/mL L=4.0 H=12. 0 CBC W/ DIFFERENTIAL* - Colle ct Date/Time: 05/31/2023 13:05 Test Name Code Test Result Test Units Test Ref Rang e WBC 6690-2 6.25 th/cmm L=5.00 H=10.00 NEUT % 71.9 % L=40.0 H=80.0 LYMPH % 11.5 % L=10.0 H=50.0 MONO % 96411-0 11.7 % L=2.0 H=12.0 EOS % 3.7 % L=0.0 H=8.0 BASO % 1.0 % L=0.0 H=3.0 IG % 2514-8 0.2 % L=0.0 H=1.1 NRBC % 67579-8 0.0 % L=0.0 H=0.0 NEUT abs count 751-8 4.5 th/cmm L=1.6 H=8. 4 LYMPH abs count 731-0 0.7 th/cmm L=1.5 H=4 .0 MONO abs count 742-7 0.7 th/cmm L=0.2 H=1. 0 EOS abs count 711-2 0.2 th/cmm L=0.0 H=0.5 BASO abs count 704-7 0.1 th/cmm L=0.0 H=0. 2 IG abs count 13213-8 0.0 th/cmm L=0.0 H=0.1 NRBC abs count 43662-3 0.0 mil/cmm L=0.0 H=0. 0 RBC 789-8 4.65 mil/cmm L=4.30 H=6.20 HEMOGLOBIN 718-7 14.1 gm/dL L=13.0 H=17.0 HEMATOCRIT 4544-3 43 % L=45 H=52 MCV 787-2 92 fL L=82 H=92 MCH 785-6 30.3 pg L=27.0 H=31.0 MCHC 786-4 32.9 % L=32.0 H=36.0 RDW-SD 788-0 41.0 fL L=39.0 H=49.0 PLATELET COUNT 777-3 95 th/cmm L=150 H=45 0 Active Medications Medication Code Dose Units Frequency Route Modificatio n Start Date/Time Baclofen 10MG Oral Tablet [id number] 10 MILLIGRAMS NEEDED, DAILY ORAL 10/28/2017 18:36 Prescription Detail TAKE 10 MILLIGRAMS ORAL NEEDED, DAILY Metoprolol Succinate 50MG Oral Tablet, Extended Release [id number] 150 MILLIGRAMS DAILY ORAL 7 18:36 Prescription Detail TAKE 150 MILLIGRAMS ORAL DAILY OMEPRAZOLE 20MG ORAL TABLET, DELAYE 0 20 MILLIGRAMS TWICE A DAY ORAL 017 18:36 Prescription Detail TAKE 20 MILLIGRAMS ORAL TWICE A DAY VERAPAMIL ER 120 MG TABLET 0 120 MILLIGRAMS BEDTIME ORAL 10/28 18:36 Prescription Detail TAKE 120 MILLIGRAMS ORAL BEDTIME Synthroid 100MCG Oral Tablet [id number] 100 MICROGRAM Q7AM BY MOUTH 08/27/2016 12:39 Prescription Detail TAKE 100 MICROGRAM BY MOUTH Q7AM Medications Administered During Visit Unknown or Not Available. Encounters Encounter Diagnosis Diagnosis Code Start Date Trigeminal neuralgia G500 05/31/2023 Social History Smoking Status Code Start Date End Date Never smoker [id number] Patient Decision Aids Unknown or Not Available. Discharge Instructions You were admitted to on 05/31/2023 00:00 with a principal diagnosis of Trigeminal neuralgia You had the following tests done:CBC W/ DIFFERENTIAL*COMPREHENSIVE METABOLIC PANEL (CMP)TEGRETOL (CARBAMAZEPINE) You were discharged from on 05/31/2023 00:00 Should you have any questions prior [...]
--- OUTSIDE RECORDS SUMMARY | 2023-09-16 21:56 | XMS_ITS | CCD ---
Author Name Unknown Address [address] [place] [address] [id number] Organization Unknown Address [address] [place] [address] [phone] Care Team Providers Care Partner Integration Planner Name Role Phone FRANNY PINEDA Attending Physician [phone] FRANNY PINEDA Er Physician 1 [phone] SHAVONNE Marie Registered Nurse [phone] Vital Signs Vital Sign Value Unit Date/Time Recent/Initial ? BMI (Body Mass Index) 24.13 kg/m^2 09/29/2022 08: 32 Initial VS Weight Measured 173 lbs 09/29/2022 08:32 Ini tial VS Height 71 in 09/29/2022 08:32 Initial VS BSA (Body Surface Area) 1.98 m^2 09/29/2022 0 8:32 Initial VS BP Systolic 181 mmHg 09/29/2022 08:32 Initial VS BP Diastolic 98 mmHg 09/29/2022 08:32 Initia l VS Respiratory Rate 18 bpm 09/29/2022 08:32 In itial VS Heart Rate 69 bpm 09/29/2022 08:32 Initial VS O2 % BldC Oximetry 99 % 09/29/2022 08:32 Initial VS Body Temperature 34.4 degrees 09/29/2022 08:32 In itial VS BP Systolic 166 mmHg 09/29/2022 09:55 Most Re cent VS BP Diastolic 94 mmHg 09/29/2022 09:55 Most R ecent VS Respiratory Rate 16 bpm 09/29/2022 09:[address] Recent VS Heart Rate 57 bpm 09/29/2022 09:55 Most Rec ent VS O2 % BldC Oximetry 98 % 09/29/2022 09:55 Most Recent VS Body Temperature 36.4 degrees 09/29/2022 09:[address] Recent VS Allergies Allergy Code Allergy Type Reaction Status AMBIEN 605782 Drug allergy ALTERED MENTAL STATUS A ctive AMITRIPTYLINE HCL 704 Drug allergy PALPITATIONS Act north Procedures Unknown or Not Available. History of Immunizations Unknown or Not Available. Problems Unknown or Not Available. Results CBC W/ DIFFERENTIAL* - [facility] ct Date/Time: 09/29/2022 09:05 Test Name Code Test Result Test Units Test Ref Rang e WBC 6690-2 6.11 th/cmm L=5.00 H=10.00 NEUT % 72.9 % L=40.0 H=80.0 LYMPH % 13.9 % L=10.0 H=50.0 MONO % 44321-2 10.6 % L=2.0 H=12.0 EOS % 1.8 % L=0.0 H=8.0 BASO % 0.5 % L=0.0 H=3.0 IG % 2514-8 0.3 % L=0.0 H=1.1 NRBC % 61254-8 0.0 % L=0.0 H=0.0 NEUT abs count 751-8 4.5 th/cmm L=1.6 H=8. 4 LYMPH abs count 731-0 0.9 th/cmm L=1.5 H=4 .0 MONO abs count 742-7 0.7 th/cmm L=0.2 H=1. 0 EOS abs count 711-2 0.1 th/cmm L=0.0 H=0.5 BASO abs count 704-7 0.0 th/cmm L=0.0 H=0. 2 IG abs count 76291-8 0.0 th/cmm L=0.0 H=0.1 NRBC abs count 64453-6 0.0 mil/cmm L=0.0 H=0. 0 RBC 789-8 5.05 mil/cmm L=4.30 H=6.20 HEMOGLOBIN 718-7 15.6 gm/dL L=13.0 H=17.0 HEMATOCRIT 4544-3 45 % L=45 H=52 MCV 787-2 90 fL L=82 H=92 MCH 785-6 30.9 pg L=27.0 H=31.0 MCHC 786-4 34.5 % L=32.0 H=36.0 RDW-SD 788-0 37.9 fL L=39.0 H=49.0 PLATELET COUNT 777-3 104 th/cmm L=150 H=45 0 PT PROTHROMBIN TIME* - Colle ct Date/Time: 09/29/2022 09:05 Test Name Code Test Result Test Units Test Ref Rang e PROTIME 5902-2 12.6 seconds L=9.3 H=11.4 INR 09822-2 1.28 L=2.00 H=3.00 PTT PARTIAL THROMBOPLASTIN T JEISON* - Collect Date/Time: 09/29/2022 09:05 Test Name Code Test Result Test Units Test Ref Rang e PTT 96908-5 33.5 seconds L=24.5 H=32.8 Active Medications Unknown or Not Available. Medications Administered During Visit Unknown or Not Available. Encounters Encounter Diagnosis Diagnosis Code Start Date Epistaxis R040 09/29/2022 Social History Smoking Status Code Start Date End Date Never smoker [id number] Patient Decision Aids Unknown or Not Available. Discharge Instructions You were admitted to [facility] on 09/29/2022 08:27 with a principal diagnosis of Epistaxis You had the following tests done:CBC W/ DIFFERENTIAL*PT PROTHROMBIN TIME*PTT PARTIAL THROMBOPLASTIN TIME* You were discharged from [facility] on 09/29/2022 11:40 Should you have any questions prior to discharge, please contact a member of your healthcare team. If you have left the hospital and have any questions, please contact your primary care physician. Chief Complaint and Reason For Visit Chief Complaint Date of Onset CHRONIC NOSE BLEEDS Function Status Unknown or Not Available. Plan of Care Unknown or Not Available. Referral/Transition of Care Unknown or Not Available.
--- OUTSIDE RECORDS SUMMARY | 2023-09-16 21:56 | XMS_ITS | CCD ---
Author Name Unknown Address [address] [place] [address] [phone] Organization Unknown Address [address] [place] [address] [phone] Care Team Providers Care Primary Care Coordinator Name Role Phone GEORGIE PUTNAM Attending Physician [phone] GEORGIE PUTNAM Er Physician 0 [phone] LINDSAY Otoole Registered Nurse [phone] Vital Signs Vital Sign Value Unit Date/Time [...] Allergy Code Allergy Type Reaction Status AMBIEN 561982 Drug allergy ALTERED MENTAL STATUS A ctive AMITRIPTYLINE HCL 704 Drug allergy PALPITATIONS Act north Procedures Unknown or Not Available. History of Immunizations Unknown or Not Available. Problems Problem Code Start Date Resolved Date Status High cholesterol 54663429 07/31/2022 Resolved GERD 133709363 07/31/2022 Resolved Hypothyroidism 53082490 07/31/2022 Resolved BPH 252427323 07/31/2022 Resolved Migraine 58820816 07/31/2022 Resolved AFIB 14886940 07/31/2022 Resolved Thrombocytopenia 504469604 07/31/2022 Resolved Results CBC W/ DIFFERENTIAL* - Colle ct Date/Time: 07/31/2022 23:22 Test Name Code Test Result Test Units Test Ref Rang e WBC 6690-2 6.73 th/cmm L=5.00 H=10.00 NEUT % 68.5 % L=40.0 H=80.0 LYMPH % 18.3 % L=10.0 H=50.0 MONO % 40024-1 10.3 % L=2.0 H=12.0 EOS % 2.2 % L=0.0 H=8.0 BASO % 0.6 % L=0.0 H=3.0 IG % 2514-8 0.1 % L=0.0 H=1.1 NRBC % 29237-6 0.0 % L=0.0 H=0.0 NEUT abs count 751-8 4.6 th/cmm L=1.6 H=8. 4 LYMPH abs count 731-0 1.2 th/cmm L=1.5 H=4 .0 MONO abs count 742-7 0.7 th/cmm L=0.2 H=1. 0 EOS abs count 711-2 0.2 th/cmm L=0.0 H=0.5 BASO abs count 704-7 0.0 th/cmm L=0.0 H=0. 2 IG abs count 91484-4 0.0 th/cmm L=0.0 H=0.1 NRBC abs count 25370-1 0.0 mil/cmm L=0.0 H=0. 0 RBC 789-8 [...] PROTIME 5902-2 11.0 seconds L=9.3 H=11.4 INR 14227-8 1.11 L=2.00 H=3.00 PTT PARTIAL THROMBOPLASTIN T JEISON* - Collect Date/Time: 07/31/2022 23:22 Test Name Code Test Result Test Units Test Ref Rang e PTT 36608-1 28.5 seconds L=24.5 H=32.8 Active Medications Medications Administered During Visit Medication Dose Units Frequency Route Date/Time of Last Dose OXYMETAZOLINE NASAL SPRAY 0.05% 15ML 2 SPRAYS X1 NASAL EACH NOSTRIL 23:10 Encounters Encounter Diagnosis Diagnosis Code Start Date Epistaxis R040 07/31/2022 Social History Smoking Status Code Start Date End Date Never smoker [id number] Patient Decision Aids Unknown or Not Available. Discharge Instructions You were admitted to [facility] on 07/31/2022 22:52 with a principal diagnosis of Epistaxis You had the following tests done:CBC W/ DIFFERENTIAL*PT PROTHROMBIN TIME*PTT PARTIAL THROMBOPLASTIN TIME* You were discharged from [facility] on 08/01/2022 01:02 Should you have [...]
--- OUTSIDE RECORDS SUMMARY | 2023-09-16 21:56 | XMS_ITS | CCD ---
Author Name Unknown Address [address] [place] [address] [phone] Organization Unknown Address [address] [place] [address] [phone] Care Team Providers Care Plant Engineering Manager Name Role Phone CHARIS WORKMAN Attending Physician [phone] CHARIS WORKMAN Rounding (Secondary) Physician [phone] Vital Signs Unknown or Not Available. Allergies Allergy Code Allergy Type Reaction Status AURY 645928 Drug allergy ALTERED MENTAL STATUS A ctive AMITRIPTYLINE HCL 704 Drug allergy PALPITATIONS Act north Procedures Unknown or Not Available. History of Immunizations Unknown or Not Available. Problems Unknown or Not Available. Results Unknown or Not Available. Active Medications Medication Code Dose Units Frequency Route Modificatio n Start Date/Time Baclofen 10MG Oral Tablet 674573 10 MILLIGRAMS NEEDED, DAILY ORAL 10/28/2017 18:36 Prescription Detail TAKE 10 MILLIGRAMS ORAL NEEDED, DAILY Metoprolol Succinate 50MG Oral Tablet, Extended Release [id number] 150 MILLIGRAMS DAILY ORAL 7 18:36 Prescription Detail TAKE 150 MILLIGRAMS ORAL DAILY OMEPRAZOLE 20MG ORAL TABLET, DELAYE 0 20 MILLIGRAMS TWICE A DAY ORAL 017 18:36 Prescription Detail TAKE 20 MILLIGRAMS ORAL TWICE A DAY VERAPAMIL ER 120 MG TABLET 0 120 MILLIGRAMS BEDTIME ORAL 10/28 18:36 Prescription Detail TAKE 120 MILLIGRAMS ORAL BEDTIME Synthroid 100MCG Oral Tablet 808803 100 MICROGRAM Q7AM BY MOUTH 08/27/2016 12:39 Prescription Detail TAKE 100 MICROGRAM BY MOUTH Q7AM Medications Administered During Visit Unknown or Not Available. Encounters Encounter Diagnosis Diagnosis Code Start Date Chronic intractable migraine without aura 016366 [id number] 11/06/2022 Social History Smoking Status Code Start Date End Date Never smoker 781275808 Patient Decision Aids Unknown or Not Available. Discharge Instructions You were admitted to [facility] on 11/06/2022 11:01 with a principal diagnosis of Chronic migraine without aura, intractable, without status migrainosus You were discharged from [facility] on 11/06/2022 00:00 Should you have [...]
--- OUTSIDE RECORDS SUMMARY | 2023-09-16 21:56 | XMS_ITS | CCD ---
Author Name Unknown Address [address] [place] [address] [phone] Organization Unknown Address [address] [place] [address] [phone] Care Team Providers Care Food Tester Name Role Phone CHARIS WORKMAN Attending Physician [phone] Vital Signs Unknown or Not Available. Allergies Allergy Code Allergy Type Reaction Status AMBIEN 565816 Drug allergy ALTERED MENTAL STATUS A ctive [...] 2028-9 29 mmol/L L=22 H=34 ANION GAP 71118-4 7.5 mmol/L CALCIUM SERUM 41001-6 9.3 mg/dL L=8.2 H=10. 2 BILIRUBIN TOTAL 1975-2 0.8 mg/dL L=0.0 H=1 .3 ALK. PHOS. 6768-6 121 U/L L=46 H=116 SGOT (AST) 1920-8 48 U/L L=15 H=37 SGPT (ALT) 1742-6 27 U/L L=12 H=78 TOTAL PROTEIN 2885-2 7.2 gm/dL L=6.0 H=8.0 ALBUMIN 1751-7 4.2 gm/dL L=3.4 H=5.0 AGE 72 years eGFR (non-Afr.Amer.) 30428-3 58 mL/min eGFR (Afr-Lao) 84160-4 70 mL/min CBC W/ DIFFERENTIAL* - [facility] ct Date/Time: 02/05/2023 12:15 Test Name Code Test Result Test Units Test Ref Rang e WBC 6690-2 6.04 th/cmm L=5.00 H=10.00 NEUT % 72.1 % L=40.0 H=80.0 LYMPH % 14.1 % L=10.0 H=50.0 MONO % 69688-0 10.9 % L=2.0 H=12.0 EOS % 2.2 % L=0.0 H=8.0 BASO % 0.5 % L=0.0 H=3.0 IG % 2514-8 0.2 % L=0.0 H=1.1 NRBC % 22090-0 0.0 % L=0.0 H=0.0 NEUT abs count 751-8 4.4 th/cmm L=1.6 H=8. 4 LYMPH abs count 731-0 0.9 th/cmm L=1.5 H=4 .0 MONO abs count 742-7 0.7 th/cmm L=0.2 H=1. 0 EOS abs count 711-2 0.1 th/cmm L=0.0 H=0.5 BASO abs count 704-7 0.0 th/cmm L=0.0 H=0. 2 IG abs count 64574-5 0.0 th/cmm L=0.0 H=0.1 NRBC abs count 65844-1 0.0 mil/cmm L=0.0 H=0. 0 RBC 789-8 [...] n Start Date/Time Baclofen 10MG Oral Tablet [id number] 10 MILLIGRAMS NEEDED, DAILY ORAL 10/28/2017 18:36 Prescription Detail TAKE 10 MILLIGRAMS ORAL NEEDED, DAILY Metoprolol Succinate 50MG Oral Tablet, Extended Release [id number] 150 MILLIGRAMS DAILY ORAL 7 18:36 Prescription Detail TAKE 150 MILLIGRAMS ORAL DAILY OMEPRAZOLE 20MG ORAL TABLET, DELAYE 0 20 MILLIGRAMS TWICE A DAY ORAL 017 18:36 Prescription Detail TAKE 20 MILLIGRAMS ORAL TWICE A DAY VERAPAMIL ER 120 MG TABLET 0 120 MILLIGRAMS BEDTIME ORAL 10/28 18:36 Prescription Detail TAKE 120 MILLIGRAMS ORAL BEDTIME Synthroid 100MCG Oral Tablet 548477 100 MICROGRAM Q7AM BY MOUTH 08/27/2016 12:39 Prescription Detail TAKE 100 MICROGRAM BY MOUTH Q7AM Medications Administered During Visit Unknown or Not Available. Encounters Encounter Diagnosis Diagnosis Code Start Date Other fatigue R5383 02/05/2023 Social History Smoking Status Code Start Date End Date Never smoker [id number] Patient Decision Aids Unknown or Not Available. Discharge Instructions You were admitted to [facility] on 02/05/2023 11:43 with a principal diagnosis of Other fatigue You had the following tests done:CBC W/ DIFFERENTIAL*COMPREHENSIVE METABOLIC PANEL (CMP) You were discharged from [facility] on 02/05/2023 11:43 Should you have any [...]
--- OUTSIDE RECORDS SUMMARY | 2023-09-16 21:57 | XMS_ITS | CCD ---
Author Name Unknown Address [address] [place] [address] [phone] Organization Unknown Address [address] [place] [address] [phone] Care Team Providers Care Drapery Operator Name Role Phone CHARIS WORKMAN Attending Physician [phone] CHARIS WORKMAN Rounding (Secondary) Physician [phone] Vital Signs Unknown or Not Available. Allergies Allergy Code Allergy Type Reaction Status AMBIEN 864261 Drug allergy ALTERED MENTAL STATUS A ctive AMITRIPTYLINE HCL 704 Drug allergy PALPITATIONS Act north Procedures Unknown or Not Available. History of Immunizations Unknown or Not Available. Problems Problem Code Start Date Resolved Date Status High cholesterol 25172466 07/31/2022 Resolved GERD 711352094 07/31/2022 Resolved Hypothyroidism 44045316 07/31/2022 Resolved BPH 507119498 07/31/2022 Resolved Migraine 26449895 07/31/2022 Resolved AFIB 21674483 07/31/2022 Resolved Thrombocytopenia 784607073 07/31/2022 Resolved Results Unknown or Not Available. Active Medications Medication Code Dose Units Frequency Route Modificatio n Start Date/Time Baclofen 10MG Oral Tablet 117203 10 MILLIGRAMS NEEDED, DAILY ORAL 10/28/2017 18:36 Prescription Detail TAKE 10 MILLIGRAMS ORAL NEEDED, DAILY Metoprolol Succinate 50MG Oral Tablet, Extended Release [id number] 150 MILLIGRAMS DAILY ORAL 7 18:36 Prescription Detail TAKE 150 MILLIGRAMS ORAL DAILY OMEPRAZOLE 20MG ORAL TABLET, DELAYE 0 20 MILLIGRAMS TWICE A DAY ORAL 017 18:36 Prescription Detail TAKE 20 MILLIGRAMS ORAL TWICE A DAY VERAPAMIL ER 120 MG TABLET 0 120 MILLIGRAMS BEDTIME ORAL 10/28 18:36 Prescription Detail TAKE 120 MILLIGRAMS ORAL BEDTIME Synthroid 100MCG Oral Tablet 368258 100 MICROGRAM Q7AM BY MOUTH 08/27/2016 12:39 Prescription Detail TAKE 100 MICROGRAM BY MOUTH Q7AM Medications Administered During Visit Unknown or Not Available. Encounters Encounter Diagnosis Diagnosis Code Start Date Chronic migraine without aur a, intractable, without status migrainosus Q26442 01/16/2022 Social History Smoking Status Code Start Date End Date Never smoker [id number] Patient Decision Aids Unknown or Not Available. Discharge Instructions You were admitted to [facility] on 01/16/2022 08:03 with a principal diagnosis of Chronic migraine without aura, intractable, without status migrainosus You were discharged from [facility] on 01/16/2022 00:00 Should you have [...]
--- OUTSIDE RECORDS SUMMARY | 2023-09-16 21:57 | XMS_ITS | CCD ---
Author Name Unknown Address [address] [place] [address] [id number] Organization Unknown Address [address] [place] [address] [phone] Care Team Providers Care Media Relations Manager Name Role Phone BRENDEN FABIOLA Z Attending Physician [phone] Vital Signs Unknown or Not Available. Allergies Allergy Code Allergy Type Reaction Status AMBIEN 826138 Drug allergy ALTERED MENTAL STATUS A ctive AMITRIPTYLINE HCL 704 Drug allergy PALPITATIONS Act north Procedures Unknown or Not Available. History of Immunizations Unknown or Not Available. Problems Problem Code Start Date Resolved Date Status High cholesterol 06159244 07/31/2022 Resolved GERD 599194798 07/31/2022 Resolved Hypothyroidism 37506146 07/31/2022 Resolved BPH 613399923 07/31/2022 Resolved Migraine 17336108 07/31/2022 Resolved AFIB 58667251 07/31/2022 Resolved Thrombocytopenia 314930236 07/31/2022 Resolved Results Unknown or Not Available. Active Medications Medication Code Dose Units Frequency Route Modificatio n Start Date/Time Baclofen 10MG Oral Tablet [id number] 10 MILLIGRAMS NEEDED, DAILY ORAL 10/28/2017 18:36 Prescription Detail TAKE 10 MILLIGRAMS ORAL NEEDED, DAILY Metoprolol Succinate 50MG Oral Tablet, Extended Release [id number] 150 MILLIGRAMS DAILY ORAL 7 18:36 Prescription Detail TAKE 150 MILLIGRAMS ORAL DAILY OMEPRAZOLE 20MG ORAL TABLET, DELAYE 0 20 MILLIGRAMS TWICE A DAY ORAL 017 18:36 Prescription Detail TAKE 20 MILLIGRAMS ORAL TWICE A DAY VERAPAMIL ER 120 MG TABLET 0 120 MILLIGRAMS BEDTIME ORAL 10/28 18:36 Prescription Detail TAKE 120 MILLIGRAMS ORAL BEDTIME Synthroid 100MCG Oral Tablet [id number] 100 MICROGRAM Q7AM BY MOUTH 08/27/2016 12:39 Prescription Detail TAKE 100 MICROGRAM BY MOUTH Q7AM Medications Administered During Visit Unknown or Not Available. Encounters Encounter Diagnosis Diagnosis Code Start Date Kidney stone [id number] 09/15/2021 Social History Smoking Status Code Start Date End Date Never smoker [id number] Patient Decision Aids Unknown or Not Available. Discharge Instructions You were admitted to [facility] on 09/15/2021 14:02 with a principal diagnosis of Calculus of kidney You were discharged from [facility] on 09/15/2021 14:02 Should you have any questions prior to discharge, please contact a member of your healthcare team. If you have left the hospital and have any questions, please contact your primary care physician. Chief Complaint and Reason For Visit Chief Complaint Date of Onset MICROSCOPIC HEMATURIA Function Status Unknown or Not Available. Plan of Care Unknown or Not Available. Referral/Transition of Care Unknown or Not Available.
--- OUTSIDE RECORDS SUMMARY | 2023-09-16 21:57 | XMS_ITS | CCD ---
Author Name Unknown Address [address] [place] [address] [phone] Organization Unknown Address [address] [place] [address] [phone] Care Team Providers Care Polystyrene Bead Molder Name Role Phone CHARIS WORKMAN Attending Physician [phone] CHARIS WORKMAN Rounding (Secondary) Physician [phone] Vital Signs Unknown or Not Available. Allergies Allergy Code Allergy Type Reaction Status AMBIEN 505131 Drug allergy ALTERED MENTAL STATUS A ctive AMITRIPTYLINE HCL 704 Drug allergy PALPITATIONS Act north Procedures Unknown or Not Available. History of Immunizations Unknown or Not Available. Problems Problem Code Start Date Resolved Date Status High cholesterol 41697363 07/31/2022 Resolved GERD 046812412 07/31/2022 Resolved Hypothyroidism 71853333 07/31/2022 Resolved BPH 367763606 07/31/2022 Resolved Migraine 20760839 07/31/2022 Resolved AFIB 14476473 07/31/2022 Resolved Thrombocytopenia 817768246 07/31/2022 Resolved Results Unknown or Not Available. Active Medications Medication Code Dose Units Frequency Route Modificatio n Start Date/Time Baclofen 10MG Oral Tablet 799811 10 MILLIGRAMS NEEDED, DAILY ORAL 10/28/2017 18:36 Prescription Detail TAKE 10 MILLIGRAMS ORAL NEEDED, DAILY Metoprolol Succinate 50MG Oral Tablet, Extended Release [id number] 150 MILLIGRAMS DAILY ORAL 7 18:36 Prescription Detail TAKE 150 MILLIGRAMS ORAL DAILY OMEPRAZOLE 20MG ORAL TABLET, DELAYE 0 20 MILLIGRAMS TWICE A DAY ORAL 017 18:36 Prescription Detail TAKE 20 MILLIGRAMS ORAL TWICE A DAY VERAPAMIL ER 120 MG TABLET 0 120 MILLIGRAMS BEDTIME ORAL 10/28 18:36 Prescription Detail TAKE 120 MILLIGRAMS ORAL BEDTIME Synthroid 100MCG Oral Tablet 250900 100 MICROGRAM Q7AM BY MOUTH 08/27/2016 12:39 Prescription Detail TAKE 100 MICROGRAM BY MOUTH Q7AM Medications Administered During Visit Unknown or Not Available. Encounters Encounter Diagnosis Diagnosis Code Start Date Refusal of treatment by patient [id number] 05/22/2022 Social History Smoking Status Code Start Date End Date Never smoker [id number] Patient Decision Aids Unknown or Not Available. Discharge Instructions You were admitted to [facility] on 05/22/2022 00:00 with a principal diagnosis of Procedure and treatment not carried out because of patient's decision for other reasons You were discharged from [facility] on 05/22/2022 10:22 Should you have any [...]
--- OUTSIDE RECORDS SUMMARY | 2023-09-16 21:57 | XMS_ITS | CCD ---
Author Name Unknown Address [address] [place] [address] [phone] Organization Unknown Address [address] [place] [address] [phone] Care Team Providers Care Travel Counselor Automobile Club Name Role Phone WILBERTOOVIDIO ROSENBERG Attending Physician [phone] Vital Signs Unknown or Not Available. Allergies Allergy Code Allergy Type Reaction Status AMBIEN 290772 Drug allergy ALTERED MENTAL STATUS A ctive AMITRIPTYLINE HCL 704 Drug allergy PALPITATIONS Act north Procedures Unknown or Not Available. History of Immunizations Unknown or Not Available. Problems Problem Code Start Date Resolved Date Status High cholesterol 66058880 07/31/2022 Resolved GERD 469619440 07/31/2022 Resolved Hypothyroidism 06334302 07/31/2022 Resolved BPH 519336782 07/31/2022 Resolved Migraine 09300114 07/31/2022 Resolved AFIB 11014348 07/31/2022 Resolved Thrombocytopenia 906450274 07/31/2022 Resolved Results Unknown or Not Available. Active Medications Medication Code Dose Units Frequency Route Modificatio n Start Date/Time Baclofen 10MG Oral Tablet [id number] 10 MILLIGRAMS NEEDED, DAILY ORAL 10/28/2017 18:36 Prescription Detail TAKE 10 MILLIGRAMS ORAL NEEDED, DAILY Metoprolol Succinate 50MG Oral Tablet, Extended Release [id number] 150 MILLIGRAMS DAILY ORAL 7 18:36 Prescription Detail TAKE 150 MILLIGRAMS ORAL DAILY OMEPRAZOLE 20MG ORAL TABLET, DELAYE 0 20 MILLIGRAMS TWICE A DAY ORAL 017 18:36 Prescription Detail TAKE 20 MILLIGRAMS ORAL TWICE A DAY VERAPAMIL ER 120 MG TABLET 0 120 MILLIGRAMS BEDTIME ORAL 10/28 18:36 Prescription Detail TAKE 120 MILLIGRAMS ORAL BEDTIME Synthroid 100MCG Oral Tablet 042303 100 MICROGRAM Q7AM BY MOUTH 08/27/2016 12:39 Prescription Detail TAKE 100 MICROGRAM BY MOUTH Q7AM Medications Administered During Visit Unknown or Not Available. Encounters Encounter Diagnosis Diagnosis Code Start Date Pain in right finger(s) T87414 12/11/19 Social History Smoking Status Code Start Date End Date Never smoker [id number] Patient Decision Aids Unknown or Not Available. Discharge Instructions You were admitted to [facility] on 12/11/2021 12:49 with a principal diagnosis of Pain in right finger(s) You were discharged from [facility] on 12/11/2021 12:49 Should you have any [...]
--- OUTSIDE RECORDS SUMMARY | 2023-09-16 22:07 | XMS_ITS | Patient Health Record ---
Author Name Unknown [facility] Address [address] [place] [address] Care Team Providers Care Magento Developer Name Role Phone CINDI KINCAID MD Primary Care Provider Joaquin Ospina Unavailable [phone] ALLERGIES Allergen (clinical drug ingredient) Drug/Non Drug Allergy documented on EMR Reaction Allergy Type Onset Date Status zolpidem Ambien bad dreams Drug Allergy Active amitriptyline Amitriptyline HCl heart races Drug Allergy Active REASON FOR REFERRAL No Information MEDICATIONS Medication SIG (Take, Route, Frequency, Duration) Notes Start Date End Date Status Synthroid 100 mcg (0.1 mg) 1 tab(s) oral ly once a day Active IMITREX NASAL 20 mg/inh intranasally onc e, as needed Active VOLTAREN TOPICAL 1% 2 g applied topicall y 4 times a day for 30 day(s) Active Triamcinolone Acetonide 0.025% 1 britany applied topically 3 times a day Active Acyclovir 200 mg 1 cap(s) orally 5 times a day for 7 days Active Baclofen 10 mg 1 tab(s) orally once a day (at bedtime) Active Centrum Silver Therapeutic Multiple Vitamins with Minerals 1 tab(s) orally once a day Active Lotrimin AF 1 % 1 application to affected area Externally Twice a day for 28 day(s) Active OMEGA-3 POLYUNSATURATED FATTY ACIDS ethyl esters 1000 mg 1 cap(s) orally 2 times a day Active Levothyroxine Sodium 100 MCG 1 tablet on an empty stomach in the morning Orally Once a day for 30 day(s) Active Gabapentin 300 MG 1 capsule Orally Onc e a day for 30 day(s) Active Omeprazole 20 mg 1 tab(s) orally 2 times a day Active Tamsulosin HCl 0.4 MG 1 capsule Orally O nce a day for 30 day(s) Active Flonase Allergy Relief 50 MCG/ACT 1 spray in each nostril Nasally Once a day for 30 day(s) Active Simvastatin 10 mg 1 tab(s) orally once a day (at bedtime) Active Xarelto 10 MG 1 tablet with food Orally Once a day for 30 day(s) Active oxyCODONE HCl 15 MG 1-2 tab(s) Orally every 4 hours as needed Active VERAPAMIL 120 mg/24 hours 1 cap(s) orall y once a day Active Eliquis 5 mg 1 tab(s) orally 2 times a day Not-Taking TOPROL-XL 150 mg 1.5 tab(s) orally on ce a day Active Oajqbjup-Tmbtnuyrb-NQ 1 % 4 drops into a ffected ear Otic Three times a day Not-Taking IMMUNIZATIONS Vaccine Route Administration Date Status Comme nts Influenza HISTORY IM Intramuscular 08/05/2007 Administered SOCIAL HISTORY Tobacco Use: Social History Observation Description Date Details (start date - stop date) Never Smoker NA - NA Sex Assigned At : Social History Observation Description Sex Assigned At Unknown SMOKING Question Answer Notes Are you a: nonsmoker PROBLEMS Problem Type ICD Code Onset Dates Problem Status W/U Status Risk SNOMED Code Notes Problem Ingrown toenail without infection (L60.0) Active confirmed 138196447 Problem Porokeratosis (Q82.8) Active confirmed 955054665 Problem Foot pain, bilateral (M79.671) Active confirmed Pain in limb (98580996) Problem Ingrown toenail (L60.0) Active confirmed 969310518 Problem Toe pain, bilateral (M79.674) Active confirmed Pain in limb (56194964) Problem Toe pain, right (M79.674) Active confirmed 355222473535943 Problem Posterior tibial tendinitis (M76.829) Active confirmed Tibialis tendinitis (49714805) Problem Toe pain, left (M79.675) Active confirmed 017257655906690 Problem Neuropathy (G62.9) Active confirmed Neuropathy (054240322) Problem Scar tissue (L90.5) Active confirmed Scar tissue (41486050) Problem Left foot pain (M79.672) Active confirmed 076266393995660 Problem Radiculopathy (M54.10) Active confirmed Radiculopathy (71045231) Problem Metatarsalgia of both feet (M77.41) Active confirmed Enthesopathy of ankle AND/OR tarsus (26488312) Has resolved Problem Keratoma (L57.0) Active confirmed Keratoma (98561484) Problem Paronychia of toe of left foot (L03.032) Active confirmed 27015897094801624 Sta tus post partial matrixectomy Problem Pain of right great toe (M79.674) Active confirmed 667276430 Problem Paresthesia of both lower extremities (R20.2) Active confirmed Skin sensation disturbance (20274946) Problem Neuropathy of lower extremity, unspecified laterality (G57.90) Active confirmed Mononeuropathy of lower limb (282298921) Problem Ingrown toenail of right foot (L60.0) Active confirmed 722922575 PLAN OF TREATMENT No Information Insurance Providers Payer Name Payer Address Payer Phone Subscriber Number Group Number Insured Name Patient Relationship to Insured Coverage Start Date Coverage End Date [employer] [facility] [address] [place], [place] [id number] [phone] [id number] OVIDIO MINOR Self - patient is the insured MEDICARE [address] [place], [place] [id number] OVIDIO MINOR Self - patient is the insured SELF PAY [place] [address] [place] [address] OVIDIO MINOR Self - patient is the insured MEDICAL (GENERAL) HISTORY Medical History History ICD Code Chronic back pain - disability - see Wor k Comp doctor in [place] Paroxysmal afib - last 08/07 successful cardioversion, coumadin restarted left ventricular hypertrophy hyperlipidemia HTN chronic back problems fatty liver-nonalcoholic Hx of cardiac ablation Ankle pain, right Visual changes Hypothyroidism Situational disturbance Muscle spasm Nevi, multiple Shoulder pain, left Gastritis HSV Fatigue Hx of tobacco abuse Headache Chronic pain syndrome Diverticulosis,colon Arachnoiditis Ingrown toenail without infection Onycholysis Surgical History Surgery Date(Month/Year) umbilical hernia repair BACK 1993 [id number] fusion ELBOW left cardiac catheterization knee surgery pyloric stenosis appendectomy Right knee replacement Cardiac Ablation Shoulder Surgery left 07/2015 Colonoscopy cardiac ablasion 11/2016 loop recorder implanted 03/2018 total nail matricectomy right hallux 03/02 07/20 partial matrixectomy medial border left hallux 03/29/19 destruction of enign lesion/porokeratosi s left foot 03/29/19 back [id number] fusion 1995 back [id number] fusion 1998 TKA revision 11/2019 Hospitalization History Reason Date(Month/Year) back surgery 94, 96, 99 knee repair
--- OUTSIDE RECORDS SUMMARY | 2023-09-16 22:08 | XMS_ITS | CCD ---
Author Name Unknown Address [address] [place] [address] [phone] Organization Unknown Address [address] [place] [address] [phone] Care Team Providers Care Spindle Sander Name Role Phone CRISTIANO WORKMAN Attending Physician [phone] Vital Signs Unknown or Not Available. Allergies Allergy Code Allergy Type Reaction Status AMBIEN 907766 Drug allergy ALTERED MENTAL STATUS A ctive AMITRIPTYLINE HCL 704 Drug allergy PALPITATIONS Act north Procedures Unknown or Not Available. History of Immunizations Unknown or Not Available. Problems Problem Code Start Date Resolved Date Status High cholesterol 74900438 07/31/2022 Resolved GERD 682986886 07/31/2022 Resolved Hypothyroidism 40898470 07/31/2022 Resolved BPH 873229923 07/31/2022 Resolved Migraine 10926215 07/31/2022 Resolved AFIB 63526907 07/31/2022 Resolved Thrombocytopenia 346531870 07/31/2022 Resolved Results Unknown or Not Available. Active Medications Medication Code Dose Units Frequency Route Modificatio n Start Date/Time Baclofen 10MG Oral Tablet 257311 10 MILLIGRAMS NEEDED, DAILY ORAL 10/28/2017 18:36 Prescription Detail TAKE 10 MILLIGRAMS ORAL NEEDED, DAILY Metoprolol Succinate 50MG Oral Tablet, Extended Release [id number] 150 MILLIGRAMS DAILY ORAL 7 18:36 Prescription Detail TAKE 150 MILLIGRAMS ORAL DAILY OMEPRAZOLE 20MG ORAL TABLET, DELAYE 0 20 MILLIGRAMS TWICE A DAY ORAL 017 18:36 Prescription Detail TAKE 20 MILLIGRAMS ORAL TWICE A DAY VERAPAMIL ER 120 MG TABLET 0 120 MILLIGRAMS BEDTIME ORAL 10/28 18:36 Prescription Detail TAKE 120 MILLIGRAMS ORAL BEDTIME Synthroid 100MCG Oral Tablet 077947 100 MICROGRAM Q7AM BY MOUTH 08/27/2016 12:39 Prescription Detail TAKE 100 MICROGRAM BY MOUTH Q7AM Medications Administered During Visit Unknown or Not Available. Encounters Encounter Diagnosis Diagnosis Code Start Date Chronic migraine without aur a, intractable, without status migrainosus [id number] 05/08/2021 Social History Smoking Status Code Start Date End Date Never smoker 648531963 Patient Decision Aids Unknown or Not Available. Discharge Instructions You were admitted to [facility] on 05/08/2021 15:08 with a principal diagnosis of Chronic migraine without aura, intractable, without status migrainosus You were discharged from [facility] on 05/08/2021 15:08 Should you have [...]
--- OUTSIDE RECORDS SUMMARY | 2023-09-16 22:08 | XMS_ITS | CCD ---
Author Name Unknown Address [address] [place] [address] [phone] Organization Unknown Address [address] [place] [address] [phone] Care Team Providers Care Registered Account Administrator Name Role Phone CRISTIANO WORKMAN Attending Physician [phone] Vital Signs Unknown or Not Available. Allergies Allergy Code Allergy Type Reaction Status AMBIEN 223080 Drug allergy ALTERED MENTAL STATUS A ctive AMITRIPTYLINE HCL 704 Drug allergy PALPITATIONS Act north Procedures Unknown or Not Available. History of Immunizations Unknown or Not Available. Problems Problem Code Start Date Resolved Date Status High cholesterol 21699863 07/31/2022 Resolved GERD 710764015 07/31/2022 Resolved Hypothyroidism 44873047 07/31/2022 Resolved BPH 636771039 07/31/2022 Resolved Migraine 22691223 07/31/2022 Resolved AFIB 28820521 07/31/2022 Resolved Thrombocytopenia 519467064 07/31/2022 Resolved Results Unknown or Not Available. Active Medications Medication Code Dose Units Frequency Route Modificatio n Start Date/Time Baclofen 10MG Oral Tablet 957151 10 MILLIGRAMS NEEDED, DAILY ORAL 10/28/2017 18:36 Prescription Detail TAKE 10 MILLIGRAMS ORAL NEEDED, DAILY Metoprolol Succinate 50MG Oral Tablet, Extended Release [id number] 150 MILLIGRAMS DAILY ORAL 7 18:36 Prescription Detail TAKE 150 MILLIGRAMS ORAL DAILY OMEPRAZOLE 20MG ORAL TABLET, DELAYE 0 20 MILLIGRAMS TWICE A DAY ORAL 017 18:36 Prescription Detail TAKE 20 MILLIGRAMS ORAL TWICE A DAY VERAPAMIL ER 120 MG TABLET 0 120 MILLIGRAMS BEDTIME ORAL 10/28 18:36 Prescription Detail TAKE 120 MILLIGRAMS ORAL BEDTIME Synthroid 100MCG Oral Tablet 325147 100 MICROGRAM Q7AM BY MOUTH 08/27/2016 12:39 Prescription Detail TAKE 100 MICROGRAM BY MOUTH Q7AM Medications Administered During Visit Unknown or Not Available. Encounters Encounter Diagnosis Diagnosis Code Start Date Chronic migraine without aur a, intractable, without status migrainosus [id number] 06/13/2021 Social History Smoking Status Code Start Date End Date Never smoker 101157493 Patient Decision Aids Unknown or Not Available. Discharge Instructions You were admitted to [facility] on 06/13/2021 12:04 with a principal diagnosis of Chronic migraine without aura, intractable, without status migrainosus You were discharged from [facility] on 06/13/2021 12:05 Should you have any [...]
--- OUTSIDE RECORDS SUMMARY | 2023-09-16 22:08 | XMS_ITS | CCD ---
Author Name Unknown Address [address] [place] [address] [phone] Organization Unknown Address [address] [place] [address] [phone] Care Team Providers Care Fruit Grower Name Role Phone LUKEJavy VINNY Attending Physician [phone] Vital Signs Unknown or Not Available. Allergies Allergy Code Allergy Type Reaction Status AMBIEN 233615 Drug allergy ALTERED MENTAL STATUS A ctive AMITRIPTYLINE HCL 704 Drug allergy PALPITATIONS Act north Procedures Unknown or Not Available. History of Immunizations Unknown or Not Available. Problems Problem Code Start Date Resolved Date Status High cholesterol 67788372 07/31/2022 Resolved GERD 269166315 07/31/2022 Resolved Hypothyroidism 51806915 07/31/2022 Resolved BPH 815129018 07/31/2022 Resolved Migraine 89902813 07/31/2022 Resolved AFIB 43938101 07/31/2022 Resolved Thrombocytopenia 755910177 07/31/2022 Resolved Results Unknown or Not Available. Active Medications Medication Code Dose Units Frequency Route Modificatio n Start Date/Time Baclofen 10MG Oral Tablet 571166 10 MILLIGRAMS NEEDED, DAILY ORAL 10/28/2017 18:36 Prescription Detail TAKE 10 MILLIGRAMS ORAL NEEDED, DAILY Metoprolol Succinate 50MG Oral Tablet, Extended Release [id number] 150 MILLIGRAMS DAILY ORAL 7 18:36 Prescription Detail TAKE 150 MILLIGRAMS ORAL DAILY OMEPRAZOLE 20MG ORAL TABLET, DELAYE 0 20 MILLIGRAMS TWICE A DAY ORAL 017 18:36 Prescription Detail TAKE 20 MILLIGRAMS ORAL TWICE A DAY VERAPAMIL ER 120 MG TABLET 0 120 MILLIGRAMS BEDTIME ORAL 10/28 18:36 Prescription Detail TAKE 120 MILLIGRAMS ORAL BEDTIME Synthroid 100MCG Oral Tablet 102270 100 MICROGRAM Q7AM BY MOUTH 08/27/2016 12:39 Prescription Detail TAKE 100 MICROGRAM BY MOUTH Q7AM Medications Administered During Visit Unknown or Not Available. Encounters Encounter Diagnosis Diagnosis Code Start Date Encounter for other orthopedic aftercare Z4789 06/27/2021 Social History Smoking Status Code Start Date End Date Never smoker [id number] Patient Decision Aids Unknown or Not Available. Discharge Instructions You were admitted to [facility] on 06/27/2021 10:36 with a principal diagnosis of Encounter for other orthopedic aftercare You were discharged from [facility] on 07/30/2021 12:39 Should you have any [...]
[2023-09-16 22:15] LABS: COVID-19 PCR Negative (Negative)
== END 2023-09-16 21:54 | disposition home or self-care (01) ==
LOC: LBN 21:53
PROVIDERS: PCP Family Medicine; Visit Provider Physician Assistant Medical
DX: J02.9 Acute pharyngitis, unspecified (principal); R05.8 Other specified cough; Z20.822 Contact with and (suspected) exposure to COVID-19
CPT/HCPCS: 87635; 87070

== ENCOUNTER → 2023-12-14 02:38 | Outpatient (CLI) | payer MEDICARE, BC, SELFPAY ==
--- NOTE | 2023-12-14 | DI.US_ITS ---
Exam(s) US HERNIA EXAM: US HERNIA CLINICAL HISTORY: TENDERNESS RLQ,R10.813,SUSPECT RT INGUINAL HERNIA. TECHNIQUE: Ultrasound was performed using standard protocol. COMPARISON: No exams were available for comparison FINDINGS: Sonographic assessment utilizing grayscale and color Doppler imaging was performed and targeted to th e area of clinical concern. No evidence of a right inguinal hernia is seen sonographically. Sonographically benign-appearing lym ph nodes are seen in the right inguinal region. The largest measures 1.2 x 0.4 x 0.9 cm. IMPRESSION: No sonographic evidence of a right inguinal hernia. DATA REPOSITORY:
--- OUTSIDE RECORDS SUMMARY | 2023-12-14 02:45 | XMS_ITS | CCD ---
Author Name Unknown Address [address] [place] [address] [phone] Organization Unknown Address [address] [place] [address] [phone] Care Team Providers Care Director Skills Name Role Phone CINDI KINCAID Attending Physician [phone] Vital Signs Unknown or Not Available. Allergies Allergy Code Allergy Type Reaction Status AMBIEN 977421 Drug allergy ALTERED MENTAL STATUS A ctive AMITRIPTYLINE HCL 704 Drug allergy PALPITATIONS Act north Procedures Unknown or Not Available. History of Immunizations Unknown or Not Available. Problems Unknown or Not Available. Results BASIC METABOLIC PANEL (BMP) - Collect Date/Time: 10/13/2023 12:46 Test Name Code Test Result Test Units Test Ref Rang e GLUCOSE 2345-7 92 mg/dL L=70 H=116 BUN 3094-0 21 mg/dL L=6 H=25 CREATININE 2160-0 1.17 mg/dL L=0.67 H=1.17 SODIUM SERUM 2951-2 139 mmol/L L=136 H=145 POTASSIUM SERUM 2823-3 4.6 mmol/L L=3.4 H=5 .2 CHLORIDE SERUM 2075-0 104 mmol/L L=96 H=110 CARBON DIOXIDE (CO2) 2028-9 28 mmol/L L=22 H=34 ANION GAP 78910-6 7.5 mmol/L CALCIUM SERUM 52006-9 9.5 mg/dL L=8.2 H=10. 2 AGE 73 years eGFR (non-Afr.Amer.) 15511-7 61 mL/min eGFR (Afr-[place]) 42901-1 74 mL/min LIPID PANEL* - Collect Date/ Time: 10/13/2023 12:46 Test Name Code Test Result Test Units Test Ref Rang e CHOLESTEROL 2093-3 163 mg/dL L=0 H=200 TRIGLYCERIDES 2571-8 76 mg/dL L=56 H=240 HDL 2085-9 60 mg/dL L=30 H=74 non-HDL-C 40224-3 103 mg/dL L=0 H=160 LDL (CALC) 55097-9 88 mg/dL L=0 H=130 % HDL 36.8 % Chol/HDL Ratio 9830-1 2.7 L=0.0 H=4. 9 CHD Relative Risk 0.5 x Avg L=0.0 H =1.0 LDL/HDL Ratio 73216-1 1.5 L=0.0 H=3.5 CHD Relative Risk. 0.4 x Avg L=0.0 H=1.0 FASTING STATUS: NON FASTING N/A TSH THYROID STIMULATING HORM ONE* - Collect Date/Time: 10/13/2023 12:46 Test Name Code Test Result Test Units Test Ref Rang e TSH 3014-8 2.047 uIU/mL L=0.360 H=3.74 0 ANTI DNA (DOUBLE STRANDED) - Collect Date/Time: 10/13/2023 12:46 Test Name Code Test Result Test Units Test Ref Rang e dsDNA <22.0 N/A <27.0 ANTI JAN PANEL* - Collect Da te/Time: 10/13/2023 12:46 Test Name Code Test Result Test Units Test Ref Rang e SS-B/La Ab, IgG, S 82749-1 <0.2 U Sm Ab, IgG, S 78545-6 <0.2 U GRID OPERATOR Ab, IgG, S 76584-6 0.2 U Scl 70 Ab, IgG, S 89270-3 <0.2 U Magdalena 1 Ab, IgG, S 44953-1 <0.2 U SS-A/Ro Ab, IgG, S 18727-6 0.2 N/A Active Medications Medication Code Dose Units Frequency Route Modificatio n Start Date/Time Baclofen 10MG Oral Tablet [id number] 10 MILLIGRAMS NEEDED, DAILY ORAL 10/28/2017 18:36 Prescription Detail TAKE 10 MILLIGRAMS ORAL NEEDED, DAILY Metoprolol Succinate 50MG Oral Tablet, Extended Release [id number] 150 MILLIGRAMS DAILY ORAL 7 18:36 Prescription Detail TAKE 150 MILLIGRAMS ORAL DAILY OMEPRAZOLE 20MG ORAL TABLET, DELAYE 0 20 MILLIGRAMS TWICE A DAY ORAL 017 18:36 Prescription Detail TAKE 20 MILLIGRAMS ORAL TWICE A DAY VERAPAMIL ER 120 MG TABLET 0 120 MILLIGRAMS BEDTIME ORAL 10/28 18:36 Prescription Detail TAKE 120 MILLIGRAMS ORAL BEDTIME Synthroid 100MCG Oral Tablet 643714 100 MICROGRAM Q7AM BY MOUTH 08/27/2016 12:39 Prescription Detail TAKE 100 MICROGRAM BY MOUTH Q7AM Medications Administered During Visit Unknown or Not Available. Encounters Encounter Diagnosis Diagnosis Code Start Date Essential hypertension [id number] 3 Social History Smoking Status Code Start Date End Date Never smoker [id number] Patient Decision Aids Unknown or Not Available. Discharge Instructions You were admitted to [facility] on 10/13/2023 12:27 with a principal diagnosis of Essential (primary) hypertension You had the following tests done:ANTI DNA (DOUBLE STRANDED)ANTI JAN PANEL*BASIC METABOLIC PANEL (BMP)LIPID PANEL*TSH THYROID STIMULATING HORMONE* You were discharged from [facility] on 10/13/2023 12:27 Should you have any questions prior to [...]
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
--- OUTSIDE RECORDS SUMMARY | 2023-12-14 02:46 | XMS_ITS | CCD ---
Author Name Unknown Address [address] [place] [address] [phone] Organization Unknown Address [address] [place] [address] [phone] Care Team Providers Care Blast Furnace Blower Name Role Phone CRISTIANO WORKMAN Attending Physician [phone] Vital Signs Unknown or Not Available. Allergies Allergy Code Allergy Type Reaction Status AMBIEN 157510 Drug allergy ALTERED MENTAL STATUS A ctive AMITRIPTYLINE HCL 704 Drug allergy PALPITATIONS Act north Procedures Unknown or Not Available. History of Immunizations Unknown or Not Available. Problems Problem Code Start Date Resolved Date Status High cholesterol 73190547 07/31/2022 Resolved GERD 639256357 07/31/2022 Resolved Hypothyroidism 19500449 07/31/2022 Resolved BPH 696733673 07/31/2022 Resolved Migraine 30895477 07/31/2022 Resolved AFIB 58039652 07/31/2022 Resolved Thrombocytopenia 141241196 07/31/2022 Resolved Results Unknown or Not Available. Active Medications Medication Code Dose Units Frequency Route Modificatio n Start Date/Time Baclofen 10MG Oral Tablet 216470 10 MILLIGRAMS NEEDED, DAILY ORAL 10/28/2017 18:36 Prescription Detail TAKE 10 MILLIGRAMS ORAL NEEDED, DAILY Metoprolol Succinate 50MG Oral Tablet, Extended Release 628140 150 MILLIGRAMS DAILY ORAL 7 18:36 Prescription Detail TAKE 150 MILLIGRAMS ORAL DAILY OMEPRAZOLE 20MG ORAL TABLET, DELAYE 0 20 MILLIGRAMS TWICE A DAY ORAL 017 18:36 Prescription Detail TAKE 20 MILLIGRAMS ORAL TWICE A DAY VERAPAMIL ER 120 MG TABLET 0 120 MILLIGRAMS BEDTIME ORAL 10/28 18:36 Prescription Detail TAKE 120 MILLIGRAMS ORAL BEDTIME Synthroid 100MCG Oral Tablet 880863 100 MICROGRAM Q7AM BY MOUTH 08/27/2016 12:39 Prescription Detail TAKE 100 MICROGRAM BY MOUTH Q7AM Medications Administered During Visit Unknown or Not Available. Encounters Encounter Diagnosis Diagnosis Code Start Date Chronic migraine without aur a, intractable, without status migrainosus [id number] 06/13/2021 Social History Smoking Status Code Start Date End Date Never smoker [id number] Patient Decision Aids Unknown or Not Available. Discharge Instructions You were admitted to [facility] on 06/13/2021 12:04 with a principal diagnosis of Chronic migraine without aura, intractable, without status migrainosus You were discharged from [facility] on 06/13/2021 12:05 Should you [...]
--- OUTSIDE RECORDS SUMMARY | 2023-12-14 02:46 | XMS_ITS | CCD ---
Author Name Unknown Address [address] [place] [address] [phone] Organization Unknown Address [address] [place] [address] [phone] Care Team Providers Care Health Physicist Name Role Phone CRISTIANO WORKMAN Attending Physician [phone] Vital Signs Unknown or Not Available. Allergies Allergy Code Allergy Type Reaction Status AMBIEN 556444 Drug allergy ALTERED MENTAL STATUS A ctive AMITRIPTYLINE HCL 704 Drug allergy PALPITATIONS Act north Procedures Unknown or Not Available. History of Immunizations Unknown or Not Available. Problems Problem Code Start Date Resolved Date Status High cholesterol 24738802 07/31/2022 Resolved GERD 151691769 07/31/2022 Resolved Hypothyroidism 64253273 07/31/2022 Resolved BPH 847277557 07/31/2022 Resolved Migraine 23402248 07/31/2022 Resolved AFIB 06726615 07/31/2022 Resolved Thrombocytopenia 185374888 07/31/2022 Resolved Results Unknown or Not Available. Active Medications Medication Code Dose Units Frequency Route Modificatio n Start Date/Time Baclofen 10MG Oral Tablet 773947 10 MILLIGRAMS NEEDED, DAILY ORAL 10/28/2017 18:36 Prescription Detail TAKE 10 MILLIGRAMS ORAL NEEDED, DAILY Metoprolol Succinate 50MG Oral Tablet, Extended Release [id number] 150 MILLIGRAMS DAILY ORAL 7 18:36 Prescription Detail TAKE 150 MILLIGRAMS ORAL DAILY OMEPRAZOLE 20MG ORAL TABLET, DELAYE 0 20 MILLIGRAMS TWICE A DAY ORAL 017 18:36 Prescription Detail TAKE 20 MILLIGRAMS ORAL TWICE A DAY VERAPAMIL ER 120 MG TABLET 0 120 MILLIGRAMS BEDTIME ORAL 10/28 18:36 Prescription Detail TAKE 120 MILLIGRAMS ORAL BEDTIME Synthroid 100MCG Oral Tablet 506105 100 MICROGRAM Q7AM BY MOUTH 08/27/2016 12:39 Prescription Detail TAKE 100 MICROGRAM BY MOUTH Q7AM Medications Administered During Visit Unknown or Not Available. Encounters Encounter Diagnosis Diagnosis Code Start Date Chronic migraine without aur a, intractable, without status migrainosus [id number] 07/11/2021 Social History Smoking Status Code Start Date End Date Never smoker [id number] Patient Decision Aids Unknown or Not Available. Discharge Instructions You were admitted to [facility] on 07/11/2021 12:22 with a principal diagnosis of Chronic migraine without aura, intractable, without status migrainosus You were discharged from [facility] on 07/11/2021 12:22 Should you have any [...]
--- OUTSIDE RECORDS SUMMARY | 2023-12-14 02:46 | XMS_ITS | CCD ---
Author Name Unknown Address [address] [place] [address] [phone] Organization Unknown Address [address] [place] [address] [phone] Care Team Providers Care Detention Deputy Name Role Phone LUKEJavy VINNY Attending Physician [phone] Vital Signs Unknown or Not Available. Allergies Allergy Code Allergy Type Reaction Status AMBIEN 103852 Drug allergy ALTERED MENTAL STATUS A ctive AMITRIPTYLINE HCL 704 Drug allergy PALPITATIONS Act north Procedures Unknown or Not Available. History of Immunizations Unknown or Not Available. Problems Problem Code Start Date Resolved Date Status High cholesterol 68674919 07/31/2022 Resolved GERD 769449999 07/31/2022 Resolved Hypothyroidism 75713569 07/31/2022 Resolved BPH 570549230 07/31/2022 Resolved Migraine 53950612 07/31/2022 Resolved AFIB 46791486 07/31/2022 Resolved Thrombocytopenia 472319370 07/31/2022 Resolved Results Unknown or Not Available. Active Medications Medication Code Dose Units Frequency Route Modificatio n Start Date/Time Baclofen 10MG Oral Tablet 918474 10 MILLIGRAMS NEEDED, DAILY ORAL 10/28/2017 18:36 Prescription Detail TAKE 10 MILLIGRAMS ORAL NEEDED, DAILY Metoprolol Succinate 50MG Oral Tablet, Extended Release [id number] 150 MILLIGRAMS DAILY ORAL 7 18:36 Prescription Detail TAKE 150 MILLIGRAMS ORAL DAILY OMEPRAZOLE 20MG ORAL TABLET, DELAYE 0 20 MILLIGRAMS TWICE A DAY ORAL 017 18:36 Prescription Detail TAKE 20 MILLIGRAMS ORAL TWICE A DAY VERAPAMIL ER 120 MG TABLET 0 120 MILLIGRAMS BEDTIME ORAL 10/28 18:36 Prescription Detail TAKE 120 MILLIGRAMS ORAL BEDTIME Synthroid 100MCG Oral Tablet 126543 100 MICROGRAM Q7AM BY MOUTH 08/27/2016 12:39 Prescription Detail TAKE 100 MICROGRAM BY MOUTH Q7AM Medications Administered During Visit Unknown or Not Available. Encounters Encounter Diagnosis Diagnosis Code Start Date Encounter for other orthopedic aftercare [id number] 06/27/2021 Social History Smoking Status Code Start Date End Date Never smoker [id number] Patient Decision Aids Unknown or Not Available. Discharge Instructions You were admitted to [facility] 01 on 06/27/2021 10:36 with a principal diagnosis of Encounter for other orthopedic aftercare You were discharged from [facility] on 07/30/2021 12:39 Should you [...]
--- OUTSIDE RECORDS SUMMARY | 2023-12-14 02:46 | XMS_ITS | CCD ---
Author Name Unknown Address [address] [place] [address] [phone] Organization Unknown Address [address] [place] [address] [phone] Care Team Providers Care Morgue Technician Name Role Phone CRISTIANO WORKMAN Attending Physician [phone] Vital Signs Unknown or Not Available. Allergies Allergy Code Allergy Type Reaction Status AMBIEN 638976 Drug allergy ALTERED MENTAL STATUS A ctive AMITRIPTYLINE HCL 704 Drug allergy PALPITATIONS Act north Procedures Unknown or Not Available. History of Immunizations Unknown or Not Available. Problems Problem Code Start Date Resolved Date Status High cholesterol 31260104 07/31/2022 Resolved GERD 984122555 07/31/2022 Resolved Hypothyroidism 66777418 07/31/2022 Resolved BPH 907245689 07/31/2022 Resolved Migraine 33759275 07/31/2022 Resolved AFIB 70795286 07/31/2022 Resolved Thrombocytopenia 803196695 07/31/2022 Resolved Results Unknown or Not Available. Active Medications Medication Code Dose Units Frequency Route Modificatio n Start Date/Time Baclofen 10MG Oral Tablet 540011 10 MILLIGRAMS NEEDED, DAILY ORAL 10/28/2017 18:36 Prescription Detail TAKE 10 MILLIGRAMS ORAL NEEDED, DAILY Metoprolol Succinate 50MG Oral Tablet, Extended Release [id number] 150 MILLIGRAMS DAILY ORAL 7 18:36 Prescription Detail TAKE 150 MILLIGRAMS ORAL DAILY OMEPRAZOLE 20MG ORAL TABLET, DELAYE 0 20 MILLIGRAMS TWICE A DAY ORAL 017 18:36 Prescription Detail TAKE 20 MILLIGRAMS ORAL TWICE A DAY VERAPAMIL ER 120 MG TABLET 0 120 MILLIGRAMS BEDTIME ORAL 10/28 18:36 Prescription Detail TAKE 120 MILLIGRAMS ORAL BEDTIME Synthroid 100MCG Oral Tablet 680133 100 MICROGRAM Q7AM BY MOUTH 08/27/2016 12:39 Prescription Detail TAKE 100 MICROGRAM BY MOUTH Q7AM Medications Administered During Visit Unknown or Not Available. Encounters Encounter Diagnosis Diagnosis Code Start Date Chronic migraine without aur a, intractable, without status migrainosus [id number] 05/08/2021 Social History Smoking Status Code Start Date End Date Never smoker [id number] Patient Decision Aids Unknown or Not Available. Discharge Instructions You were admitted to [facility] on 05/08/2021 15:08 with a principal diagnosis of Chronic migraine without aura, intractable, without status migrainosus You were discharged from [facility] on 05/08/2021 15:08 Should you have [...]
== END ==
PROVIDERS: PCP Family Medicine; Visit Provider Nurse Practitioner Family
DX: R10.813 Right lower quadrant abdominal tenderness (principal)
CPT/HCPCS: 76857

== ENCOUNTER 2024-02-10 18:29 | Outpatient (REF) | payer MEDICARE, BC, SELFPAY ==
[2024-02-10 19:27] LABS: Calculated LDL 90 mg/dL (<100); Cholesterol 164 mg/dL (<200); HDL Cholesterol 56 mg/dL (40-60); Triglyceride 91 mg/dL (<150)
== END 2024-02-10 18:30 | disposition home or self-care (01) ==
LOC: NCHCN 18:29
PROVIDERS: PCP Family Medicine; Visit Provider Family Medicine
DX: E78.5 Hyperlipidemia, unspecified (principal)
CPT/HCPCS: 80061

== ENCOUNTER 2024-07-24 16:53 | Emergency (ER) | payer MEDICARE, BC, SELFPAY ==
[2024-07-24 16:59] VITALS: BP 185/91; PULSE 50; RESP 16; TEMP 37.1; O2SAT 98
--- NOTE | 2024-07-24 17:06 | ED.GENADUL_ITS ---
Discharge Plan Disposition Patient Disposition: Home Condition: Stable Discharge Details Clinical Impression: Sprain of right wrist, Sprain of right knee, Low back pain Primary Care Provider: Radha Mckeon V ED Provider: Lazaro Morgan Home Meds and New Rx's Prescriptions: Continued oxycodone 15 mg tablet 5 - 10 mg PO Q4H PRN lidocaine-prilocaine 2.5-2.5 % cream 1 applic topical ONCE PRN magnesium hydroxide [Milk of Magnesia] 400 mg/5 mL suspension 5 ml PO DAILY PRN polyethylene glycol 3350 17 gram/dose powder 17 g PO DAILY PRN simvastatin 10 mg tablet 10 mg PO DAILY sumatriptan succinate 100 mg tablet See Rx Instructions PO .COMPLEX Rx Instructions: take 1 tab at onset of headache; if no relief, may repeat 1 tab after at least 2 hrs; max = 2 tabs/24 hrs PO sumatriptan 20 mg/actuation spray,non-aerosol 20 mg intranasal ONCE PRN Rx Instructions: administer into one nostril as a single dose zonisamide 50 mg capsule 50 mg PO DAILY baclofen 10 mg Tablet 10 mg PO DAILY triamcinolone acetonide 0.1 % Ointment 1 applic TOPICAL TID fluticasone propionate [Flonase Allergy Relief] 50 mcg/actuation [place],Suspension 1 spray INTRANASAL BID Centrum Silver 0.4-300-250 mg-mcg-mcg Tablet 1 tab PO DAILY Xarelto 20 mg Tablet 20 mg PO DAILY lamotrigine 25 mg tablet 50 mg PO BID metoprolol succinate [Toprol XL] 100 mg tablet extended release 24 hr 100 mg PO DAILY acyclovir 200 mg capsule 200 mg PO DAILY PRN Rx Instructions: as directed sennosides-docusate sodium [Colace 2-In-1] 8.6-50 mg tablet 2 tab-cap PO DAILY PRN diclofenac sodium 1 % gel 1 g topical DAILY PRN tamsulosin 0.4 mg capsule 0.4 mg PO DAILY valacyclovir 500 mg tablet 500 mg PO DAILY PRN finasteride 5 mg tablet 5 mg PO DAILY Emgality Pen 120 mg/mL pen injector 120 mg subcut .monthly acetaminophen 500 MG tablet 500 mg PO PRN PRN levothyroxine 200 MCG tablet 100 mcg PO DAILY verapamil [Calan] 120 MG tablet 120 mg PO HS Discharge Instructions Instructions: Low Back Pain ED, Common Wrist Injuries ED, Knee Sprain ED Additional Instructions: You were seen in the emergency department for your fall 2 nights ago with right knee, right wrist and low back pain, there is no fracture seen in your x-ray of knee or wrist and the CT of your lumbar back shows no acute findings and no acute fractures, I suspect you have strains and sprains of all 3 locations, our orthopedist Dr. Pulido looked at your x-rays and wanted you to be placed in a thumb spica splint, please follow-up with orthopedic office for persistent pain lasting past 2 weeks otherwise please take regular doses of Tylenol and your baclofen for muscle relaxation apply heat and ice to areas in alternating fashion. If no improvement seek repeat imaging of wrist in about a week. Return to ED for signs of neurovascular compromise and increasing back pain with urinary or bowel changes, numbness to groin Referrals: [facility] [Provider Group] Radha Mckeon MD [Primary Care Provider] - Discharge Data Discharge Date/Time-TO BE ENTERED AT DEPARTURE: 07/24/24 18:49 HPI General Date/Time Provider Initiated Documentation: 07/24/24 17:06 . HPI Narrative: 74 year-old male presents to ED today by POV/ambulating with a chief complaint of fall two days ago at home, injuring his R wrist, R knee, and exacerbating chronic low back pain. Quality described as something not feeling right in his wrist, states he had prior lumbar fusions and hardware removal and has 8/10 pain there, and less intense R knee pain with prior replacement, no radiation to inability to ambulate, gross swelling/deformity, numbness/tingling, urinary retention, bowel incontinence, groin numbness. Severity is described as 8/10. Palliating factors include nothing specific attempted, has baclofen at home. Provoking factors include nothing specific. Patient is anticoagulated. Related Data Home Medications ?Medication ?Instructions ?Recorded ?Confirmed acetaminophen 500 mg tablet 500 mg PO PRN PRN 01/16/17 07/24/24 levothyroxine 200 mcg tablet 100 mcg PO DAILY 01/16/17 07/24/24 verapamil 120 mg tablet (Calan) 120 mg PO HS 01/18/17 07/24/24 baclofen 10 mg tablet 10 mg PO DAILY 04/03/20 07/24/24 fluticasone propionate 50 1 spray intranasal BID 04/03/20 07/24/24 mcg/actuation nasal spray,suspension (Flonase Allergy Relief) ktvhyxrb-leu-dkigm acid 0.4 1 tab PO DAILY 04/03/20 07/24/24 mg-lycopene 300 mcg-lutein 250 mcg tablet (Centrum Silver) rivaroxaban 20 mg tablet (Xarelto) 20 mg PO DAILY 04/03/20 07/24/24 triamcinolone acetonide 0.1 % 1 applic topical TID 04/03/20 07/24/24 topical ointment lamotrigine 25 mg tablet 50 mg PO BID 08/12/20 07/24/24 finasteride 5 mg tablet 5 mg PO DAILY 04/09/23 07/24/24 galcanezumab-gnlm 120 mg/mL 120 mg subcut .monthly 04/09/23 07/24/24 subcutaneous pen injector (Emgality Pen) acyclovir 200 mg capsule 200 mg PO DAILY PRN 04/11/24 07/24/24 diclofenac sodium 1 % topical gel 1 g topical DAILY PRN 04/11/24 07/24/24 metoprolol succinate 100 mg 100 mg PO DAILY 04/11/24 07/24/24 tablet,extended release 24 hr (Toprol XL) sennosides 8.6 mg-docusate sodium 2 tab-cap PO DAILY PRN 04/11/24 07/24/24 50 mg tablet (Colace 2-In-1) tamsulosin 0.4 mg capsule 0.4 mg PO DAILY 04/11/24 07/24/24 valacyclovir 500 mg tablet 500 mg PO DAILY PRN 04/11/24 07/24/24 lidocaine-prilocaine 2.5 %-2.5 % 1 applic topical ONCE PRN 06/22/24 07/24/24 topical cream magnesium hydroxide 400 mg/5 mL 5 ml PO DAILY PRN 06/22/24 07/24/24 oral suspension (Milk of Magnesia) oxycodone 15 mg tablet 5 - 10 mg PO Q4H PRN 06/22/24 07/24/24 polyethylene glycol 3350 17 17 g PO DAILY PRN 06/22/24 07/24/24 gram/dose oral powder simvastatin 10 mg tablet 10 mg PO DAILY 06/22/24 07/24/24 sumatriptan 20 mg/actuation nasal 20 mg intranasal ONCE PRN 06/22/24 07/24/24 spray sumatriptan succinate 100 mg tablet See Rx Instructions PO .COMPLEX 06/22/24 07/24/24 zonisamide 50 mg capsule 50 mg PO DAILY 06/22/24 07/24/24 Allergies Allergy/AdvReac Type Severity Reaction Status Date / Time zolpidem (From Ambien) Allergy Severe altered Unverified 07/24/24 17:04 mental status amitriptyline AdvReac Other (See Verified 07/24/24 17:04 Comment) atorvastatin (From Lipitor) AdvReac Other (See Verified 07/24/24 17:04 Comment) flecainide AdvReac Other (See Verified 07/24/24 17:04 Comment) General Stated Complaint: Orthopedic ROSALIO: 4 Review of Systems All systems reviewed & are unremarkable except as noted in HPI and below Exam Narrative Exam Narrative: GENERAL APPEARANCE: Well-nourished, non-toxic, awake and alert, atraumatic, no acute distress. SKIN: Warm, pink, dry, intact, without rashes/lesions/ulcerations. HEAD: Normocephalic, atraumatic, normal hair distribution for gender/age. EYES: Normal conjunctiva, no exudates on lids/lashes. ENT: Nares patent, no circumoral cyanosis, no facial swelling NECK: Supple, trachea midline, painless cervical ROM. LUNGS/CHEST: Non-labored respirations, normal A/P diameter, symmetrical expansion, no chest wall deformity HEART (CV/PV): Regular rate, no peripheral edema, no JVD. ABDOMEN: Soft, non-distended, no guarding. MSK: Normal ROM, no swelling/deformity to bilateral UEs or LEs, moving all extremities without weakness, no cyanosis, spine midline without tenderness, normal curvature, tenderness to palpation at the right wrist, no anatomical snuffbox tenderness, right radial pulse 2+, patient is right-hand dominant, right knee tenderness without crepitus or gross swelling, able to ambulate, right lumbar tenderness without crepitus NEURO: Mental Status AAOx4 - alert to person, place, time, events No facial droop, no forehead involvement. Motor: No focal weakness - strength 5/5 in bilateral UEs and LEs, proximal and distal, symmetric. Sensory: sensation intact to light touch globally. Gait normal: patient ambulated without ataxia into ED room. PSYCH: euthymic, cooperative, pleasant, appropriate speech Course Vital Signs Vital signs: Vital Signs Temperature 37.1 C 07/24/24 16:59 Pulse 50 L 07/24/24 16:59 Respiratory Rate 16 07/24/24 16:59 Blood Pressure 185/91 H 07/24/24 16:59 Pulse Oximetry 98 07/24/24 16:59 Temperature 37.1 C 07/24/24 16:59 Pulse 50 L 07/24/24 16:59 Respiratory Rate 16 07/24/24 16:59 Respiratory Effort Normal 07/24/24 17:04 Blood Pressure 185/91 H 07/24/24 16:59 Pulse Oximetry 98 07/24/24 16:59 Pain Level 9 07/24/24 16:59 Medical Decision Making This dictation utilizes [id number]-os-[id number] dictation software and may contain unedited grammatical errors. 74 year-old male presents to ED today by POV/ambulating with a chief complaint of fall two days ago at home, injuring his R wrist, R knee, and exacerbating chronic low back pain. Quality described as something not feeling right in his wrist, states he had prior lumbar fusions and hardware removal and has 8/10 pain there, and less intense R knee pain with prior replacement, no radiation to inability to ambulate, gross swelling/deformity, numbness/tingling, urinary retention, bowel incontinence, groin numbness. Severity is described as 8/10. Palliating factors include nothing specific attempted, has baclofen at home. Provoking factors include nothing specific. Patients' medical history: History of pacemaker, history of lumbar fusions with hardware removal, history of right total knee replacement, history of CVA, vertigo. Family and social history: Noncontributory. Pertinent exam findings / vital signs include tenderness to palpation at the right wrist, no anatomical snuffbox tenderness, right radial pulse 2+, patient is right-hand dominant, right knee tenderness without crepitus or gross swelling, able to ambulate, right lumbar tenderness without crepitus. Differential / pathologies of concern include [ ]. Diagnostic studies of: -XR R wrist, XR R knee, CT lumbar spine wo. -no fracture on wrist, knee, no acute fractures on lumbar spine, degenerative changes Interventions of: -Recommend RICE therapy and dosing Tylenol consistently, provided thumb spica splint, recommend he try his at home baclofen for back pain, recommend follow-up with orthopedics and outpatient repeat imaging for failure to improve. ED Course/Assessment/Plan: 74-year-old male suffered a fall 2 nights ago injuring his right knee, right wrist, low back, he has past right knee replacement as well as lumbar fusion with hardware removal, states the most focal complaint is pain in his right wrist, he is able to supinate and pronate, Dr. Pulido reviewed his images recommend thumb spica brace, he could follow-up outpatient, counseled on negative knee films as well as a negative CT of his back, recommend conservative management at home with strict return criteria for any neurologic changes to lower extremities, developing symptoms of cauda equina. Findings not consistent with fracture, NV compromise, mackenzie-prosthetic fracture, cauda equina, cord syndrome. Disposition of low back pain, sprain of right knee, sprain of right wrist. Patient verbalized understanding of the plan and return to ED criteria and engaged in shared decision making. Medical Records Medical records reviewed: Yes I reviewed the patient's medical records. Imaging Data Radiologic Study: Attestation: I personally reviewed and interpreted this imaging study as follows: Imaging: X-Ray Radiologist's impression: EXAM: XR KNEE RT 3V AP,LAT,PAULA CLINICAL HISTORY: fall 2 days ago; R wrist, R knee, low back pain. TECHNIQUE: 2D digital imaging was performed. COMPARISON: No exams were available for comparison FINDINGS: 3 views Satisfactory position alignment of the components of the right knee prosthesis. No fracture nor loosening evident. No fracture seen in the proximal fibula. IMPRESSION: No fractures. Intact appearing right knee joint prosthesis components. Radiologic Study #2: Attestation: I personally reviewed and interpreted this imaging study as follows: Imaging: X-Ray Radiologist's impression: EXAM: XR WRIST RT COMPL NAVICULAR CLINICAL HISTORY: fall 2 days ago; R wrist, R knee, low back pain. TECHNIQUE: 2D digital imaging was performed. COMPARISON: No exams were available for comparison FINDINGS: Four views. No acute fractures evident. No significant ulnar variance. Subtle irregularity in the distal scaphoid-navicular bone most probably related to the degenerative changes seen in the triscaphe joint. There is some mild degenerative changes noted in the 1st carpometacarpal joint. IMPRESSION: No acute fractures evident in the wrist. Some degenerative change noted at the triscaphe joint Radiologic Study #3: Attestation: I personally reviewed and interpreted this imaging study as follows: Imaging: CT Scan Radiologist's impression: EXAM: CT LUMBAR SPINE WO CLINICAL HISTORY: fall 2 days ago; R wrist, R knee, low back pain. TECHNIQUE: Imaging Protocol: Axial computed tomography images with coronal and sagittal reformatted images were created and reviewed COMPARISON: No exams were available for comparison FINDINGS: Bones: No evidence of acute fracture nor listhesis.. Evidence of prior fusion surgery at L4-5 level. INDIVIDUAL LEVELS: T12-L1:No disc herniation nor canal stenosis. Facet joints unremarkable. No foraminal stenosis. L1-2: No disc herniation nor canal stenosis. Facet joints unremarkable. No foraminal stenosis. L2-3: Normal disc height. No disc herniation. There is mild-moderate central spinal canal stenosis which is mostly related to short AP dimensions of the pedicles and mild annular bulging. Mild facet arthropathy noted bilaterally. L3-4: Normal disc height. Mild symmetrical annular bulging. Mild central canal stenosis related to short AP dimensions the pedicles, annular bulging and facet arthropathy. L4-5: There is fusion across the disc space. No disc herniation also posteriorly. No disc herniation. Central canal dimensions at this level are normal. L5-S1: No disc herniation or canal stenosis. No foraminal stenosis. The visualized sacroiliac joints and sacrum appear unremarkable. PARASPINAL SOFT TISSUES: Visualized paraspinal tissues appear unremarkable. IMPRESSION: 1. Previous L4-5 fusion surgery. 2. No evidence of fracture or listhesis. 3. Central spinal canal. At L2-3 and L3-4 levels, as described above. Quality:SDOH Health Related Social Needs: No Data to Display PFSH All Active Problems (Updated 07/24/24 @ 18:30 by ANDREE Castillo) Low back pain (Acute) Sprain of right knee (Acute) Sprain of right wrist (Acute) Chronic headache (Acute) Migraine headache with aura (Acute) Migraine headache without aura (Acute) Vertigo (Acute) Migraine aura without headache (Acute) Esophagitis determined by biopsy (Acute) Medical History (Updated 07/24/24 @ 18:30 by ANDREE Castillo) History of pacemaker Senile hyperkeratosis Hemospermia Pain in finger of right hand Trigeminal neuralgia Pain of right lower extremity Right arm pain Paroxysmal atrial fibrillation Sore throat [place] Adjustment disorder Asymptomatic microscopic hematuria Trigger finger of left hand CHACORTA positive History of chest pain Abdominal tenderness, right lower quadrant Inguinal hernia Rhinorrhea Disorder of skin CVA (cerebral vascular accident) Diverticulosis Headache Nonalcoholic fatty liver disease Left shoulder pain Dizziness Chronic insomnia Right shoulder pain Right hand pain Left foot pain Right knee pain Partial motor seizures Anticoagulation management encounter Migraine Disorder of vestibular function of right ear Left cervical radiculopathy Implantable loop recorder present Thyroid disorder Chronic low back pain Left arm pain Epistaxis Memory loss Bitten by rat Pain of right thumb Seborrheic keratosis Abnormal sputum Nausea and vomiting Diarrhea Thoracic back pain Depression Tobacco abuse Diverticulosis of colon Hyperlipidemia Chronic pain syndrome History of tobacco abuse Fatigue Fatty liver HSV (herpes simplex virus) infection Gastritis Preoperative examination Multiple nevi Hypothyroidism Ankle pain, right Family problems Memory impairment Nephrolithiasis Insomnia Thrombocytopenia Peripheral neuropathy Sinusitis Anticoagulated Trigger finger, right middle finger Hypertension Steatohepatitis GERD (gastroesophageal reflux disease) Chronic back pain Atrial fibrillation s/p ablation Arthritis Surgical History History of tonsillectomy and adenoidectomy H/O cardiac radiofrequency ablation S/P bunionectomy bilateral 2020 S/P spinal surgery 1993 L5-S1 fusion 1995 Lf-S1 repeat fusion 1998 hardware removal 05/19/2022 Cervical spine S/P carpal tunnel release R 1975, L 2003 Status post total right knee replacement 2009 with revision 2019; prior scope in 1964 Pyloric stenosis, congenital s/p surgery as History of appendectomy H/O hernia repair [facility] repair 2023 Hx of colonoscopy History of cardiac radiofrequency ablation (RFA) elbow surgery Family History Father Heart disease Mother Heart disease Son Seizures Other Hyperlipidemia Hypertension Personal history of malignant neoplasm Social History Smoking/Tobacco Use Status: Former Tobacco Use Smoking risk assessment performed?: Yes Alcohol Intake: never Drug use: Never Substance use type: marijuana Household members: spouse Housing: house Number of Children: 3 current occupation: Furloughed due to COVID Pets and animals: Yes Pets and animals: dog(s) What is your relationship status?: Panel score (0-1 are the most socially isolated patients): 0 What type of physical activity do you participate in: walking and independent ambulation Seatbelt use: always Do you feel safe in your relationship?: Yes
--- OUTSIDE RECORDS SUMMARY | 2024-07-24 17:11 | XMS_ITS ---
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 Industrial Electrical Technician Name Role Phone JCAINTA VIZCAINO Attending Unavailable CODI Arias Primary Unavailable Social History Type Status Start Date End Date Code Code Syst em Smoking History Never smoker (Never Smoked) 668359760 SNOMED CT Sex Male Medications Medication Start Date End Date Route Frequency Dose Code Code System Medication Instructions Home Meds Acyclovir 400MG Oral Tablet 08/27/2016 06/17/2022 ORAL DAILY 400 MILLIGRAMS 753528 RxNorm TAKE 400 MILLIGRAMS ORAL DAILY Synthroid 100MCG Oral Tablet 08/27/2016 Unknown BY MOUTH Q7AM 100 MICROGRAM 609980 RxNorm TAKE 100 MICROGRAM BY MOUTH Q7AM Eliquis 5MG Oral Tablet 08/27/2016 06/17/2022 BY MOUTH TWICE A DAY 5 MILLIGRAMS 2257600 RxNorm TAKE 5 MILLIGRAMS BY MOUTH TWICE A DAY Baclofen 10MG Oral Tablet 10/28/2017 Unknown ORAL NEEDED, DAILY 10 MILLIGRAMS 903950 RxNorm TAKE 10 MILLIGRAMS ORAL NEEDED, DAILY Gabapentin 300MG Oral Capsule 10/28/2017 06/17/2022 ORAL EVERY EVENING 300 MILLIGRAMS 158082 RxNorm TAKE 300 MILLIGRAMS ORAL EVERY EVENING Metoprolol Succinate 50MG Oral Tablet, Extended Release 10/28/2017 Unknown ORAL DAILY 150 MILLIGRAMS 165987 RxNorm TAKE 150 MILLIGRAMS ORAL DAILY OMEPRAZOLE 20MG ORAL TABLET, DELAYE 10/28/2017 05/29/2024 ORAL TWICE A DAY 20 MILLIGRAMS RxNorm TAKE 20 MILLIGRAMS ORAL TWICE A DAY SEROquel 25MG QUEtiapine Oral Tablet 10/28/2017 06/17/2022 ORAL BEDTIME 25 MILLIGRAMS 846517 RxNorm TAKE 25 MILLIGRAMS ORAL BEDTIME Simvastatin 40MG Oral Tablet 10/28/2017 06/17/2022 ORAL EVERY EVENING 40 MILLIGRAMS 878670 RxNorm TAKE 40 MILLIGRAMS ORAL EVERY EVENING VERAPAMIL ER 120 MG TABLET 10/28/2017 Unknown ORAL BEDTIME 120 MILLIGRAMS RxNorm TAKE 120 MILLIGRAMS ORAL BEDTIME predniSONE 20MG Oral Tablet 12/19/2023 05/29/2024 ORAL DAILY 1 TABLET 391103 RxNorm TAKE 3 TABLETS DAILY FOR 3 DAYS, THEN 2 TABLETS DAILY FOR 3 DAYS, THEN 1 TABLET DAILY FOR 3 DAYS Hospital Discharge Instructions Should you have any questions prior to discharge, please contact a member of your healthcare team. If you have left the hospital and have any questions, please contact your primary care physician. Reason For Referral No Data Found Implants Implanted MARRY Status Assigning Authority Procedure Date Lot Number Serial Number Manufacturing Date Expiration Date Distinct ID Code Brand Name Model Number Extra-gyna ecological surgical mesh, composite- polymer 0110 [id number] 2151 [id number] 1726 [id number] [id number] 4X20 10 Active FDA Laparoscop ic ROSIE Right inguinal hernia repair 01/20 [id number] 12/29/2025 ProGri p [id number] AR Problems Problem Start Date Resolved Date Status Code Code System HIGH CHOLESTEROL 07/31/2022 resolved [id number] SN OMED-CT GERD 07/31/2022 resolved [id number] SNOMED-CT HYPOTHYROIDISM 07/31/2022 resolved 71440100 SNOM ED-CT BPH 07/31/2022 resolved 317930899 SNOMED-CT MIGRAINE 07/31/2022 resolved 85490556 SNOMED-CT AFIB 07/31/2022 resolved 25390963 SNOMED-CT THROMBOCYTOPENIA 07/31/2022 resolved 754552650 SN OMED-CT Allergies and Adverse Reactions Allergy Substance Reaction Severity Start Date Concern Status Code Code System AMBIEN Altered Mental Status (SNOMED-CT: 628794022) Active 275480 RxNorm AMITRIPTYLINE HCL Moderate Active 704 RxNor m Plan of Treatment Symptoms 01/02/2021 CT HEAD W/WO CONTRAST 02/24/2023 CT HEAD W/O CONTRAST 02/24/2023 X-RAY 12/11/2021 CT ABDOMEN/PELVIS W/O CONTRAST 09/15/20 21 X-RAY 08/28/2021 Encounters Encounter Diagnosis Start Date Code Code Sys tem Refusal of treatment by patient 05/22/2022 [id number] SNOMED-CT Personal Care Team Section Performer Name Performer Role Active Date Inactive Da te
--- OUTSIDE RECORDS SUMMARY | 2024-07-24 17:11 | XMS_ITS ---
Author Organization Unknown Address [address] [place] [address] [phone] Phone Care Team Providers Care Market Specialist Name Role Phone JACINTA VIZCAINO Attending Unavailable CODI Arias Primary Unavailable Social History Type Status Start Date End Date Code Code Syst em Smoking History Never smoker (Never Smoked) 889585722 SNOMED CT Sex Male Medications Medication Start Date End Date Route Frequency Dose Code Code System Medication Instructions Home Meds Acyclovir 400MG Oral Tablet 08/27/2016 06/17/2022 ORAL DAILY 400 MILLIGRAMS 998534 RxNorm TAKE 400 MILLIGRAMS ORAL DAILY Synthroid 100MCG Oral Tablet 08/27/2016 Unknown BY MOUTH Q7AM 100 MICROGRAM 605407 RxNorm TAKE 100 MICROGRAM BY MOUTH Q7AM Eliquis 5MG Oral Tablet 08/27/2016 06/17/2022 BY MOUTH TWICE A DAY 5 MILLIGRAMS 4965385 RxNorm TAKE 5 MILLIGRAMS BY MOUTH TWICE A DAY Baclofen 10MG Oral Tablet 10/28/2017 Unknown ORAL NEEDED, DAILY 10 MILLIGRAMS 543178 RxNorm TAKE 10 MILLIGRAMS ORAL NEEDED, DAILY Gabapentin 300MG Oral Capsule 10/28/2017 06/17/2022 ORAL EVERY EVENING 300 MILLIGRAMS 890067 RxNorm TAKE 300 MILLIGRAMS ORAL EVERY EVENING Metoprolol Succinate 50MG Oral Tablet, Extended Release 10/28/2017 Unknown ORAL DAILY 150 MILLIGRAMS 729080 RxNorm TAKE 150 MILLIGRAMS ORAL DAILY OMEPRAZOLE 20MG ORAL TABLET, DELAYE 10/28/2017 05/29/2024 ORAL TWICE A DAY 20 MILLIGRAMS RxNorm TAKE 20 MILLIGRAMS ORAL TWICE A DAY SEROquel 25MG QUEtiapine Oral Tablet 10/28/2017 06/17/2022 ORAL BEDTIME 25 MILLIGRAMS 482002 RxNorm TAKE 25 MILLIGRAMS ORAL BEDTIME Simvastatin 40MG Oral Tablet 10/28/2017 06/17/2022 ORAL EVERY EVENING 40 MILLIGRAMS 822787 RxNorm TAKE 40 MILLIGRAMS ORAL EVERY EVENING VERAPAMIL ER 120 MG TABLET 10/28/2017 Unknown ORAL BEDTIME 120 MILLIGRAMS RxNorm TAKE 120 MILLIGRAMS ORAL BEDTIME predniSONE 20MG Oral Tablet 12/19/2023 05/29/2024 ORAL DAILY 1 TABLET 117357 RxNorm TAKE 3 TABLETS DAILY FOR 3 [...] ic ROSIE Right inguinal hernia repair 01/20 [id number] X2010 12/29/2025 ProGri p [id number] AR Problems Problem Start Date Resolved Date Status Code Code System HIGH CHOLESTEROL 07/31/2022 resolved 81243905 SN OMED-CT GERD 07/31/2022 resolved 286706611 SNOMED-CT HYPOTHYROIDISM 07/31/2022 resolved 27700278 SNOM ED-CT BPH 07/31/2022 resolved 053543364 SNOMED-CT MIGRAINE 07/31/2022 resolved 47049314 SNOMED-CT AFIB 07/31/2022 resolved 59042199 SNOMED-CT THROMBOCYTOPENIA 07/31/2022 resolved 785446816 SN OMED-CT Allergies and Adverse Reactions Allergy Substance Reaction Severity Start Date Concern Status Code Code System AMBIEN Altered Mental Status (SNOMED-CT: 478499167) Active 366827 RxNorm AMITRIPTYLINE HCL Moderate Active 704 RxNor m Plan of Treatment Symptoms 01/02/2021 CT HEAD W/WO CONTRAST 02/24/2023 CT HEAD W/O CONTRAST 02/24/2023 X-RAY 12/11/2021 CT ABDOMEN/PELVIS W/O CONTRAST 09/15/20 21 X-RAY 08/28/2021 Encounters Encounter Diagnosis Start Date Code Code Sys tem Chronic migraine without aur a, intractable, without status migrainosus 01/16/2022 SNOMED-CT Personal Care Team Section Performer Name Performer Role Active Date Inactive Da te
--- OUTSIDE RECORDS SUMMARY | 2024-07-24 17:11 | XMS_ITS ---
Author Organization Unknown Address [address] [place] [address] [phone] Phone Care Team Providers Care Turbine Technician Name Role Phone QUIN RAGSDALE Registered Nurse Unavailable NAEEM Christopher Attending Unavailable CODI Arias Primary Unavailable UNLISTED PROVIDER - REQUESTED Xhandoff Un available Results CBC W/ DIFFERENTIAL* - Colle ct Date/Time: 06/17/2022 01:30 [facility] ID: [id number] [address] [place], [place], [address] LOINC: 32427-8 Test Value Unit Reference Range Code Code System Flag WBC 6.36 th/cmm L=5.00 H=10.00 6690-2 LOINC NEUT % 62.6 % L=40.0 H=80.0 LYMPH % 19.5 % L=10.0 H=50.0 MONO % 14.3 % L=2.0 H=12.0 73383-3 LOINC H EOS % 2.5 % L=0.0 H=8.0 BASO % 0.8 % L=0.0 H=3.0 IG % 0.3 % L=0.0 H=1.1 2514-8 LOINC NRBC % 0.0 % L=0.0 H=0.0 49515-4 LOINC NEUT abs count 4.0 th/cmm L=1.6 H=8.4 751-8 LOINC LYMPH abs count 1.2 th/cmm L=1.5 H=4.0 731-0 LOINC L MONO abs count 0.9 th/cmm L=0.2 H=1.0 742-7 LOINC EOS abs count 0.2 th/cmm L=0.0 H=0.5 711-2 LOINC BASO abs count 0.1 th/cmm L=0.0 H=0.2 704-7 LOINC IG abs count 0.0 th/cmm L=0.0 H=0.1 46770-9 LOINC NRBC abs count 0.0 mil/cmm L=0.0 H=0.0 30989-9 LOINC RBC 4.71 mil/cmm L=4.30 H=6.20 789-8 LOINC HEMOGLOBIN 14.8 gm/dL L=13.0 H=17.0 718-7 LOINC HEMATOCRIT 44 % L=45 H=52 4544-3 LOINC L MCV 93 fL L=82 H=92 787-2 LOINC H MCH 31.4 pg L=27.0 H=31.0 785-6 LOINC H MCHC 33.8 % L=32.0 H=36.0 786-4 LOINC RDW-SD 43.8 fL L=39.0 H=49.0 788-0 LOINC PLATELET COUNT 108 th/cmm L=150 H=450 777-3 LOINC L Social History Type Status Start Date End Date Code Code Syst em Smoking History Never smoker (Never Smoked) 961126430 SNOMED CT Sex Male Vital Signs Vital Sign Value Unit Murray Value Murray Unit Date/Time Recent/Initial? Code Code System Body Mass Index 22.87 kg/m2 06/17/2022 01:48 Initial 00737 -5 LOINC Systolic Blood Pressure 183 mm[Hg] 06/17/2022 01:48 Initial 8480- 6 LOINC Diastolic Blood Pressure 94 mm[Hg] 06/17/2022 01:48 Initial 8462- 4 LOINC Body Surface Area 1.93 m2 06/17/2022 01:48 Initial 3140- 1 LOINC Height 180.340 0 cm 71.00 in 06/17/2022 01:48 Initial 8302- 2 LOINC O2 Saturation 98 % 2021 01:48 Initial 58315 -5 LOINC Pulse 65.0 /min 06/17/2022 01:48 Initial 8867- 4 LOINC Respiration 18 /min 06/17/20 01:48 Initial 9279- 1 [facility] Temperature 35.9 Sendy 96.6 F 06/17/20 01:48 Initial 8310- 5 [facility] Weight 74.39 kg 164.00 lbs 06/17/2022 01:48 Initial 18592 -7 [facility] Medications Medication Start Date End Date Route Frequency Dose Code Code System Medication Instructions Home Meds Acyclovir 400MG Oral Tablet 08/27/2016 06/17/2022 ORAL DAILY 400 MILLIGRAMS 769208 RxNorm TAKE 400 MILLIGRAMS ORAL DAILY Synthroid 100MCG Oral Tablet 08/27/2016 Unknown BY MOUTH Q7AM 100 MICROGRAM 306101 RxNorm TAKE 100 MICROGRAM BY MOUTH Q7AM Eliquis 5MG Oral Tablet 08/27/2016 06/17/2022 BY MOUTH TWICE A DAY 5 MILLIGRAMS 8907101 RxNorm TAKE 5 MILLIGRAMS BY MOUTH TWICE A DAY Baclofen 10MG Oral Tablet 10/28/2017 Unknown ORAL NEEDED, DAILY 10 MILLIGRAMS 860090 RxNorm TAKE 10 MILLIGRAMS ORAL NEEDED, DAILY Gabapentin 300MG Oral Capsule 10/28/2017 06/17/2022 ORAL EVERY EVENING 300 MILLIGRAMS 093285 RxNorm TAKE 300 MILLIGRAMS ORAL EVERY EVENING Metoprolol Succinate 50MG Oral Tablet, Extended Release 10/28/2017 Unknown ORAL DAILY 150 MILLIGRAMS 593260 RxNorm TAKE 150 MILLIGRAMS ORAL DAILY OMEPRAZOLE 20MG ORAL TABLET, DELAYE 10/28/2017 05/29/2024 ORAL TWICE A DAY 20 MILLIGRAMS RxNorm TAKE 20 MILLIGRAMS ORAL TWICE A DAY SEROquel 25MG QUEtiapine Oral Tablet 10/28/2017 06/17/2022 ORAL BEDTIME 25 MILLIGRAMS 036772 RxNorm TAKE 25 MILLIGRAMS ORAL BEDTIME Simvastatin 40MG Oral Tablet 10/28/2017 06/17/2022 ORAL EVERY EVENING 40 MILLIGRAMS 120641 RxNorm TAKE 40 MILLIGRAMS ORAL EVERY EVENING VERAPAMIL ER 120 MG TABLET 10/28/2017 Unknown ORAL BEDTIME 120 MILLIGRAMS RxNorm TAKE 120 MILLIGRAMS ORAL BEDTIME predniSONE 20MG Oral Tablet 12/19/2023 05/29/2024 ORAL DAILY 1 TABLET 386077 RxNorm TAKE 3 TABLETS DAILY FOR 3 [...] ic ROSIE Right inguinal hernia repair 01/20 [id number] X2010 12/29/2025 ProGri p [id number] AR Problems Problem Start Date Resolved Date Status Code Code System HIGH CHOLESTEROL 07/31/2022 resolved 24591315 SN OMED-CT GERD 07/31/2022 resolved 088583803 SNOMED-CT HYPOTHYROIDISM 07/31/2022 resolved 61288055 SNOM ED-CT BPH 07/31/2022 resolved 576972889 SNOMED-CT MIGRAINE 07/31/2022 resolved 36835912 SNOMED-CT AFIB 07/31/2022 resolved 97351127 SNOMED-CT THROMBOCYTOPENIA 07/31/2022 resolved 686534037 SN OMED-CT Allergies and Adverse Reactions Allergy Substance Reaction Severity Start Date Concern Status Code Code System AMBIEN Altered Mental Status (SNOMED-CT: 070695687) Active 173591 RxNorm AMITRIPTYLINE HCL Moderate Active 704 RxNor m Plan of Treatment Symptoms 01/02/2021 CT HEAD W/WO CONTRAST 02/24/2023 CT HEAD W/O CONTRAST 02/24/2023 X-RAY 12/11/2021 CT ABDOMEN/PELVIS W/O CONTRAST 09/15/20 21 X-RAY 08/28/2021 Encounters Encounter Diagnosis Start Date Code Code Sys tem Epistaxis 06/17/2022 SNOMED-CT Personal Care Team Section Performer Name Performer Role Active Date Inactive Da te
--- OUTSIDE RECORDS SUMMARY | 2024-07-24 17:11 | XMS_ITS ---
Author Organization Unknown Address [address] [place] [address] [phone] Phone Care Team Providers Care Rib Cutter Name Role Phone CELINA NOLAN Attending Unavailable CODI Arias Primary Unavailable Results XR FINGER(S) RT 3V* - Comple ronaldo: 12/11/2021 07:40 LOINC: RIGHT THUMB - 4 VIEWS: Comparison is made with 10/29/19. The bones are intact and normally mineralized. The articular surfaces are well maintained. The soft tissues are unremarkable. IMPRESSION:No acute abnormality. Dictated by: URSULA BOCANEGRA MD Transcribed by: KIERSTEN 12/11/21/13:46 D , December 11, 2021 1:19:53 PM [id number] Electronically Reviewed and Signed By: GET BOCANEGRA MD 12/11/21 14:45 Copy for: 185 HEALTH INFORMATION MGMT Social History Type Status Start Date End Date Code Code Syst em Smoking History Never smoker (Never Smoked) 979953404 SNOMED CT Sex Male Medications Medication Start Date End Date Route Frequency Dose Code Code System Medication Instructions Home Meds Acyclovir 400MG Oral Tablet 08/27/2016 06/17/2022 ORAL DAILY 400 MILLIGRAMS 19721101 RxNorm TAKE 400 MILLIGRAMS ORAL DAILY Synthroid 100MCG Oral Tablet 08/27/2016 Unknown BY MOUTH Q7AM 100 MICROGRAM 060935 RxNorm TAKE 100 MICROGRAM BY MOUTH Q7AM Eliquis 5MG Oral Tablet 08/27/2016 06/17/2022 BY MOUTH TWICE A DAY 5 MILLIGRAMS 8839463 RxNorm TAKE 5 MILLIGRAMS BY MOUTH TWICE A DAY Baclofen 10MG Oral Tablet 10/28/2017 Unknown ORAL NEEDED, DAILY 10 MILLIGRAMS 647329 RxNorm TAKE 10 MILLIGRAMS ORAL NEEDED, DAILY Gabapentin 300MG Oral Capsule 10/28/2017 06/17/2022 ORAL EVERY EVENING 300 MILLIGRAMS 749533 RxNorm TAKE 300 MILLIGRAMS ORAL EVERY EVENING Metoprolol Succinate 50MG Oral Tablet, Extended Release 10/28/2017 Unknown ORAL DAILY 150 MILLIGRAMS 630487 RxNorm TAKE 150 MILLIGRAMS ORAL DAILY OMEPRAZOLE 20MG ORAL TABLET, DELAYE 10/28/2017 05/29/2024 ORAL TWICE A DAY 20 MILLIGRAMS RxNorm TAKE 20 MILLIGRAMS ORAL TWICE A DAY SEROquel 25MG QUEtiapine Oral Tablet 10/28/2017 06/17/2022 ORAL BEDTIME 25 MILLIGRAMS 178175 RxNorm TAKE 25 MILLIGRAMS ORAL BEDTIME Simvastatin 40MG Oral Tablet 10/28/2017 06/17/2022 ORAL EVERY EVENING 40 MILLIGRAMS 364543 RxNorm TAKE 40 MILLIGRAMS ORAL EVERY EVENING VERAPAMIL ER 120 MG TABLET 10/28/2017 Unknown ORAL BEDTIME 120 MILLIGRAMS RxNorm TAKE 120 MILLIGRAMS ORAL BEDTIME predniSONE 20MG Oral Tablet 12/19/2023 05/29/2024 ORAL DAILY 1 TABLET 403282 RxNorm TAKE 3 TABLETS DAILY FOR 3 [...] ic ROSIE Right inguinal hernia repair 01/20 [id number] X2010 12/29/2025 ProGri p [id number] AR Problems Problem Start Date Resolved Date Status Code Code System HIGH CHOLESTEROL 07/31/2022 resolved 77146448 SN OMED-CT GERD 07/31/2022 resolved 342686545 SNOMED-CT HYPOTHYROIDISM 07/31/2022 resolved 02972336 SNOM ED-CT BPH 07/31/2022 resolved 290726784 SNOMED-CT MIGRAINE 07/31/2022 resolved 28094547 SNOMED-CT AFIB 07/31/2022 resolved 42901774 SNOMED-CT THROMBOCYTOPENIA 07/31/2022 resolved 053964431 SN OMED-CT Allergies and Adverse Reactions Allergy Substance Reaction Severity Start Date Concern Status Code Code System AMBIEN Altered Mental Status (SNOMED-CT: 202316635) Active 359871 RxNorm AMITRIPTYLINE HCL Moderate Active 704 RxNor m Plan of Treatment Symptoms 01/02/2021 CT HEAD W/WO CONTRAST 02/24/2023 CT HEAD W/O CONTRAST 02/24/2023 X-RAY 12/11/2021 CT ABDOMEN/PELVIS W/O CONTRAST 09/15/20 21 X-RAY 08/28/2021 Encounters Encounter Diagnosis Start Date Code Code Sys tem 12/11/2021 [id number] SNOMED-CT Personal Care Team Section Performer Name Performer Role Active Date Inactive Da te
--- OUTSIDE RECORDS SUMMARY | 2024-07-24 17:12 | XMS_ITS ---
Author Organization Unknown Address [address] [place] [address] [phone] Phone Care Team Providers Care Hospital Receiving Clerk Name Role Phone JACINTA VIZCAINO Attending Unavailable CODI Arias Primary Unavailable Social History Type Status Start Date End Date Code Code Syst em Smoking History Never smoker (Never Smoked) 347575196 SNOMED CT Sex Male Medications Medication Start Date End Date Route Frequency Dose Code Code System Medication Instructions Home Meds Synthroid 100MCG Oral Tablet 08/27/2016 Unknown BY MOUTH Q7AM 100 MICROGRAM 149543 RxNorm TAKE 100 MICROGRAM BY MOUTH Q7AM Baclofen 10MG Oral Tablet 10/28/2017 Unknown ORAL NEEDED, DAILY 10 MILLIGRAMS 283227 RxNorm TAKE 10 MILLIGRAMS ORAL NEEDED, DAILY Metoprolol Succinate 50MG Oral Tablet, Extended Release 10/28/2017 Unknown ORAL DAILY 150 MILLIGRAMS 833999 RxNorm TAKE 150 MILLIGRAMS ORAL DAILY OMEPRAZOLE 20MG ORAL TABLET, DELAYE 10/28/2017 4 ORAL TWICE A DAY 20 MILLIGRAMS RxNorm TAKE 20 MILLIGRAMS ORAL TWICE A DAY VERAPAMIL ER 120 MG TABLET 10/28/2017 Unknown ORAL BEDTIME 120 MILLIGRAMS RxNorm TAKE 120 MILLIGRAMS ORAL BEDTIME predniSONE 20MG Oral Tablet 12/19/2023 4 ORAL DAILY 1 TABLET 853498 RxNorm TAKE 3 TABLETS DAILY FOR 3 [...] ic ROSIE Right inguinal hernia repair 01/20 [id number] X2010 12/29/2025 ProGri p [id number] AR Problems Problem Start Date Resolved Date Status Code Code System HIGH CHOLESTEROL 07/31/2022 resolved 73316712 SN OMED-CT GERD 07/31/2022 resolved 051224080 SNOMED-CT HYPOTHYROIDISM 07/31/2022 resolved 55990330 SNOM ED-CT BPH 07/31/2022 resolved 441375699 SNOMED-CT MIGRAINE 07/31/2022 resolved 76850977 SNOMED-CT AFIB 07/31/2022 resolved 53974624 SNOMED-CT THROMBOCYTOPENIA 07/31/2022 resolved 825185716 SN OMED-CT Allergies and Adverse Reactions Allergy Substance Reaction Severity Start Date Concern Status Code Code System AMBIEN Altered Mental Status (SNOMED-CT: 334178285) Active 804193 RxNorm AMITRIPTYLINE HCL Moderate Active 704 RxNor m Plan of Treatment Symptoms 01/02/2021 CT HEAD W/WO CONTRAST 02/24/2023 CT HEAD W/O CONTRAST 02/24/2023 X-RAY 12/11/2021 CT ABDOMEN/PELVIS W/O CONTRAST 09/15/20 21 X-RAY 08/28/2021 Encounters Encounter Diagnosis Start Date Code Code Sys tem Chronic intractable migraine without aura 11/06/2022 [id number] SNOMED-CT Personal Care Team Section Performer Name Performer Role Active Date Inactive Da te
--- OUTSIDE RECORDS SUMMARY | 2024-07-24 17:12 | XMS_ITS ---
Author Organization Unknown Address [address] [place] [address] [phone] Phone Care Team Providers Care Skin Care Instructor Name Role Phone SAURAV RICHARDSON Registered Nurse Lisseth Christopher Attending Unavailable UNLISTED PROVIDER - REQUESTED ER Un available CODI Arias Primary Unavailable Results CBC W/ DIFFERENTIAL* - Colle ct Date/Time: 12/01/2022 20:54 [facility] ID: [id number] [address] [place], [place], [address] LOINC: 40281-8 Test Value Unit Reference Range Code Code System Flag WBC 6.37 th/cmm L=5.00 H=10.00 6690-2 LOINC NEUT % 67.4 % L=40.0 H=80.0 LYMPH % 13.8 % L=10.0 H=50.0 MONO % 10.7 % L=2.0 H=12.0 80763-3 LOINC EOS % 7.1 % L=0.0 H=8.0 BASO % 0.8 % L=0.0 H=3.0 IG % 0.2 % L=0.0 H=1.1 2514-8 LOINC NRBC % 0.0 % L=0.0 H=0.0 43298-9 LOINC NEUT abs count 4.3 th/cmm L=1.6 H=8.4 751-8 LOINC LYMPH abs count 0.9 th/cmm L=1.5 H=4.0 731-0 LOINC L MONO abs count 0.7 th/cmm L=0.2 H=1.0 742-7 LOINC EOS abs count 0.5 th/cmm L=0.0 H=0.5 711-2 LOINC BASO abs count 0.1 th/cmm L=0.0 H=0.2 704-7 LOINC IG abs count 0.0 th/cmm L=0.0 H=0.1 56883-3 LOINC NRBC abs count 0.0 mil/cmm L=0.0 H=0.0 52802-5 LOINC RBC 4.71 mil/cmm L=4.30 H=6.20 789-8 LOINC HEMOGLOBIN 14.4 gm/dL L=13.0 H=17.0 718-7 LOINC HEMATOCRIT 43 % L=45 H=52 4544-3 LOINC L MCV 91 fL L=82 H=92 787-2 LOINC MCH 30.6 pg L=27.0 H=31.0 785-6 LOINC MCHC 33.6 % L=32.0 H=36.0 786-4 LOINC RDW-SD 41.8 fL L=39.0 H=49.0 788-0 LOINC PLATELET COUNT 114 th/cmm L=150 H=450 777-3 LOINC L Social History Type Status Start Date End Date Code Code Syst em Smoking History Never smoker (Never Smoked) 431635194 SNOMED CT Sex Male Vital Signs Vital Sign Value Unit Hardin Value Hardin Unit Date/Time Recent/Initial? Code Code System Body Mass Index 23.57 kg/m2 12/01/2022 20:34 Initial 44132 -5 LOINC Systolic Blood Pressure 184 mm[Hg] 12/01/2022 22:10 Most Recent 8480- 6 LOINC Diastolic Blood Pressure 78 mm[Hg] 12/01/2022 22:10 Most Recent 8462- 4 LOINC Systolic Blood Pressure 193 mm[Hg] 12/01/2022 20:34 Initial 8480- 6 LOINC Diastolic Blood Pressure 87 mm[Hg] 12/01/2022 20:34 Initial 8462- 4 LOINC Body Surface Area 1.96 m2 12/01/2022 20:34 Initial 3140- 1 LOINC Height 180.340 0 cm 71.00 in 12/01/2022 20:34 Initial 8302- 2 LOINC O2 Saturation 98 % 2022 22:10 Most Recent 15815 -5 LOINC O2 Saturation 99 % 2022 20:34 Initial 46558 -5 LOINC Pulse 86.0 /min 12/01/2022 22:10 Most Recent 8867- 4 LOINC Pulse 71.0 /min 12/01/2022 20:34 Initial 8867- 4 LOINC Respiration 18 /min 12/01/19 22:10 Most Recent 9279- 1 LOINC Respiration 16 /min 12/01/19 20:34 Initial 9279- 1 LOINC Temperature 36.7 Sendy 98.1 F 12/01/19 22:10 Most Recent 8310- 5 LOINC Temperature 36.6 Sendy 97.9 F 12/01/19 20:34 Initial 8310- 5 LOINC Weight 76.66 kg 169.00 lbs 12/01/2022 20:34 Initial 07355 -7 LOINC Medications Medication Start Date End Date Route Frequency Dose Code Code System Medication Instructions Home Meds Synthroid 100MCG Oral Tablet 08/27/2016 Unknown BY MOUTH Q7AM 100 MICROGRAM 546583 RxNorm TAKE 100 MICROGRAM BY MOUTH Q7AM Baclofen 10MG Oral Tablet 10/28/2017 Unknown ORAL NEEDED, DAILY 10 MILLIGRAMS 731791 RxNorm TAKE 10 MILLIGRAMS ORAL NEEDED, DAILY Metoprolol Succinate 50MG Oral Tablet, Extended Release 10/28/2017 Unknown ORAL DAILY 150 MILLIGRAMS 773480 RxNorm TAKE 150 MILLIGRAMS ORAL DAILY OMEPRAZOLE 20MG ORAL TABLET, DELAYE 10/28/2017 4 ORAL TWICE A DAY 20 MILLIGRAMS RxNorm TAKE 20 MILLIGRAMS ORAL TWICE A DAY VERAPAMIL ER 120 MG TABLET 10/28/2017 Unknown ORAL BEDTIME 120 MILLIGRAMS RxNorm TAKE 120 MILLIGRAMS ORAL BEDTIME predniSONE 20MG Oral Tablet 12/19/2023 4 ORAL DAILY 1 TABLET 243407 RxNorm TAKE 3 TABLETS DAILY FOR 3 DAYS, THEN 2 TABLETS DAILY FOR 3 DAYS, THEN 1 TABLET DAILY FOR 3 DAYS Hospital Discharge Instructions Should you have any questions prior to discharge, please contact a member of your healthcare team. If you have left the hospital and have any questions, please contact your primary care physician. Reason For Referral No Data Found Procedures Procedure Name Date Status Code Code Syste m Total replacement of right knee joint completed 539051508 SNOMEDCT History of cervical spine fusion completed 190 [id number] SNOMEDCT Fusion of lumbar spine completed 13885036 SN OMEDCT Implants Implanted MARRY Status Assigning Authority Procedure Date Lot Number Serial Number Manufacturing Date Expiration Date Distinct ID Code Brand Name Model Number Extra-gyna ecological surgical mesh, composite- polymer 0110 8845 2151 3167 1726 0228 10PX C130 4X20 10 Active FDA Laparoscop ic ROSIE Right inguinal hernia repair 01/20 [id number] X2010 12/29/2025 ProGri p [id number] AR Problems Problem Start Date Resolved Date Status Code Code System HIGH CHOLESTEROL 07/31/2022 resolved 89294604 SN OMED-CT GERD 07/31/2022 resolved 907733760 SNOMED-CT HYPOTHYROIDISM 07/31/2022 resolved 20906139 SNOM ED-CT BPH 07/31/2022 resolved 521347096 SNOMED-CT MIGRAINE 07/31/2022 resolved 10304458 SNOMED-CT AFIB 07/31/2022 resolved 71565322 SNOMED-CT THROMBOCYTOPENIA 07/31/2022 resolved 925412992 SN OMED-CT Allergies and Adverse Reactions Allergy Substance Reaction Severity Start Date Concern Status Code Code System AMBIEN Altered Mental Status (SNOMED-CT: 257244416) Active 122468 RxNorm AMITRIPTYLINE HCL Moderate Active 704 RxNor m Plan of Treatment Symptoms 01/02/2021 CT HEAD W/WO CONTRAST 02/24/2023 CT HEAD W/O CONTRAST 02/24/2023 X-RAY 12/11/2021 CT ABDOMEN/PELVIS W/O CONTRAST 09/15/20 21 X-RAY 08/28/2021 Encounters Encounter Diagnosis Start Date Code Code Sys tem Epistaxis 12/01/2022 SNOMED-CT Personal Care Team Section Performer Name Performer Role Active Date Inactive Da te
--- OUTSIDE RECORDS SUMMARY | 2024-07-24 17:12 | XMS_ITS ---
Author Organization Unknown Address [address] [place] [address] [phone] Phone Care Team Providers Care Cryogenics Repairer Name Role Phone LINDSAY WALTER Registered Nurse Unavailable INDY Christopher Attending Unavailable CODI Arias Primary Unavailable UNLISTED PROVIDER - REQUESTED Xhandoff Un available Results PTT PARTIAL THROMBOPLASTIN T JEISON* - Collect Date/Time: 07/31/2022 23:22 [facility] ID: [id number] [address] [place] [address], [phone] LOINC: 48368-7 Test Value Unit Reference Range Code Code System Flag PTT 28.5 seconds L=24.5 H=32.8 57057-4 LOINC PT PROTHROMBIN TIME* - Colle ct Date/Time: 07/31/2022 23:22 [facility] ID: [id number] [address] [place] [address], [address] LOINC: 5902-2 Test Value Unit Reference Range Code Code System Flag PROTIME 11.0 seconds L=9.3 H=11.4 5902-2 LOINC INR 1.11 L=2.00 H=3.00 08205-2 LOINC L CBC W/ DIFFERENTIAL* - Colle ct Date/Time: 07/31/2022 23:22 [facility] ID: [id number] [address] [place] [address], [address] LOINC: 42246-7 Test Value Unit Reference Range Code Code System Flag WBC 6.73 th/cmm L=5.00 H=10.00 6690-2 LOINC NEUT % 68.5 % L=40.0 H=80.0 LYMPH % 18.3 % L=10.0 H=50.0 MONO % 10.3 % L=2.0 H=12.0 21286-9 LOINC EOS % 2.2 % L=0.0 H=8.0 BASO % 0.6 % L=0.0 H=3.0 IG % 0.1 % L=0.0 H=1.1 2514-8 LOINC NRBC % 0.0 % L=0.0 H=0.0 43753-4 LOINC NEUT abs count 4.6 th/cmm L=1.6 H=8.4 751-8 LOINC LYMPH abs count 1.2 th/cmm L=1.5 H=4.0 731-0 LOINC L MONO abs count 0.7 th/cmm L=0.2 H=1.0 742-7 LOINC EOS abs count 0.2 th/cmm L=0.0 H=0.5 711-2 LOINC BASO abs count 0.0 th/cmm L=0.0 H=0.2 704-7 LOINC IG abs count 0.0 th/cmm L=0.0 H=0.1 23985-3 LOINC NRBC abs count 0.0 mil/cmm L=0.0 H=0.0 08113-2 LOINC RBC 4.84 mil/cmm L=4.30 H=6.20 789-8 LOINC HEMOGLOBIN 15.1 gm/dL L=13.0 H=17.0 718-7 LOINC HEMATOCRIT 45 % L=45 H=52 4544-3 LOINC MCV 93 fL L=82 H=92 787-2 LOINC H MCH 31.2 pg L=27.0 H=31.0 785-6 LOINC H MCHC 33.7 % L=32.0 H=36.0 786-4 LOINC RDW-SD 41.5 fL L=39.0 H=49.0 788-0 LOINC PLATELET COUNT 110 th/cmm L=150 H=450 777-3 LOINC L Social History Type Status Start Date End Date Code Code Syst em Smoking History Never smoker (Never Smoked) 813005817 SNOMED CT Sex Male Vital Signs Vital Sign Value Unit [place] Value [place] Unit Date/Time Recent/Initial? Code Code System Body Mass Index 24.41 kg/m2 07/31/2022 23:00 Initial 00746 -5 LOINC Systolic Blood Pressure 167 mm[Hg] 08/01/2022 01:01 Most Recent 8480- 6 LOINC Diastolic Blood Pressure 81 mm[Hg] 08/01/2022 01:01 Most Recent 8462- 4 LOINC Systolic Blood Pressure 174 mm[Hg] 07/31/2022 23:00 Initial 8480- 6 LOINC Diastolic Blood Pressure 93 mm[Hg] 07/31/2022 23:00 Initial 8462- 4 LOINC Body Surface Area 1.99 m2 07/31/2022 23:00 Initial 3140- 1 LOINC Height 180.340 0 cm 71.00 in 07/31/2022 23:00 Initial 8302- 2 INC O2 Saturation 99 % 2021 01:01 Most Recent 19551 -5 INC O2 Saturation 96 % 2021 23:00 Initial 41129 -5 LOINC Pulse 64.0 /min 08/01/2022 01:01 Most Recent 8867- 4 LOINC Pulse 60.0 /min 07/31/2022 23:00 Initial 8867- 4 LOINC Respiration 18 /min 08/01/20 22 01:01 Most Recent 9279- 1 LOINC Respiration 18 /min 07/31/20 22 23:00 Initial 9279- 1 INC Temperature 35.0 Sendy 95.0 F 07/31/20 22 23:00 Initial 8310- 5 LOINC Weight 79.38 kg 175.00 lbs 07/31/2022 23:00 Initial 43985 -7 [facility] Medications Medication Start Date End Date Route Frequency Dose Code Code System Medication Instructions Home Meds Synthroid 100MCG Oral Tablet 08/27/2016 Unknown BY MOUTH Q7AM 100 MICROGRAM 938134 RxNorm TAKE 100 MICROGRAM BY MOUTH Q7AM Baclofen 10MG Oral Tablet 10/28/2017 Unknown ORAL NEEDED, DAILY 10 MILLIGRAMS 963292 RxNorm TAKE 10 MILLIGRAMS ORAL NEEDED, DAILY Metoprolol Succinate 50MG Oral Tablet, Extended Release 10/28/2017 Unknown ORAL DAILY 150 MILLIGRAMS 511927 RxNorm TAKE 150 MILLIGRAMS ORAL DAILY OMEPRAZOLE 20MG ORAL TABLET, DELAYE 10/28/2017 4 ORAL TWICE A DAY 20 MILLIGRAMS RxNorm TAKE 20 MILLIGRAMS ORAL TWICE A DAY VERAPAMIL ER 120 MG TABLET 10/28/2017 Unknown ORAL BEDTIME 120 MILLIGRAMS RxNorm TAKE 120 MILLIGRAMS ORAL BEDTIME predniSONE 20MG Oral Tablet 12/19/2023 4 ORAL DAILY 1 TABLET 945636 RxNorm TAKE 3 TABLETS DAILY FOR 3 [...] ic ROSIE Right inguinal hernia repair 01/20 [id number] X2010 12/29/2025 ProGri p [id number] AR Problems Problem Start Date Resolved Date Status Code Code System HIGH CHOLESTEROL 07/31/2022 resolved 91063640 SN OMED-CT GERD 07/31/2022 resolved 709483608 SNOMED-CT HYPOTHYROIDISM 07/31/2022 resolved 53042011 SNOM ED-CT BPH 07/31/2022 resolved 413218143 SNOMED-CT MIGRAINE 07/31/2022 resolved 14567179 SNOMED-CT AFIB 07/31/2022 resolved 77977481 SNOMED-CT THROMBOCYTOPENIA 07/31/2022 resolved 332441587 SN OMED-CT Allergies and Adverse Reactions Allergy Substance Reaction Severity Start Date Concern Status Code Code System AMBIEN Altered Mental Status (SNOMED-CT: 474528609) Active 589847 RxNorm AMITRIPTYLINE HCL Moderate Active 704 RxNor m Plan of Treatment Symptoms 01/02/2021 CT HEAD W/WO CONTRAST 02/24/2023 CT HEAD W/O CONTRAST 02/24/2023 X-RAY 12/11/2021 CT ABDOMEN/PELVIS W/O CONTRAST 09/15/20 21 X-RAY 08/28/2021 Encounters Encounter Diagnosis Start Date Code Code Sys tem Epistaxis 07/31/2022 SNOMED-CT Personal Care Team Section Performer Name Performer Role Active Date Inactive Da te
--- OUTSIDE RECORDS SUMMARY | 2024-07-24 17:12 | XMS_ITS ---
Author Organization Unknown Address [address] [place] [phone] Phone Care Team Providers Care Payroll Administrative Assistant Name Role Phone SHAVONNE ORTIZ Registered Nurse Unavailable MIRIAM Arias Attending Unavailable CODI Arias Primary Unavailable UNLISTED PROVIDER - REQUESTED Xhandoff Un available Results PTT PARTIAL THROMBOPLASTIN T JEISON* - Collect Date/Time: 09/29/2022 09:05 [facility] ID: [id number] [address] [place] [address], [phone] LOINC: 63551-0 Test Value Unit Reference Range Code Code System Flag PTT 33.5 seconds L=24.5 H=32.8 47115-0 LOINC H PT PROTHROMBIN TIME* - Colle ct Date/Time: 09/29/2022 09:05 [facility] ID: [id number] [address] [place] [address], [address] LOINC: 5902-2 Test Value Unit Reference Range Code Code System Flag PROTIME 12.6 seconds L=9.3 H=11.4 5902-2 LOINC H INR 1.28 L=2.00 H=3.00 66532-4 LOINC L CBC W/ DIFFERENTIAL* - Colle ct Date/Time: 09/29/2022 09:05 [facility] ID: [id number] [address] [place] [address], [address] LOINC: 72930-5 Test Value Unit Reference Range Code Code System Flag WBC 6.11 th/cmm L=5.00 H=10.00 6690-2 LOINC NEUT % 72.9 % L=40.0 H=80.0 LYMPH % 13.9 % L=10.0 H=50.0 MONO % 10.6 % L=2.0 H=12.0 37931-6 LOINC EOS % 1.8 % L=0.0 H=8.0 BASO % 0.5 % L=0.0 H=3.0 IG % 0.3 % L=0.0 H=1.1 2514-8 LOINC NRBC % 0.0 % L=0.0 H=0.0 62791-1 LOINC NEUT abs count 4.5 th/cmm L=1.6 H=8.4 751-8 LOINC LYMPH abs count 0.9 th/cmm L=1.5 H=4.0 731-0 LOINC L MONO abs count 0.7 th/cmm L=0.2 H=1.0 742-7 LOINC EOS abs count 0.1 th/cmm L=0.0 H=0.5 711-2 LOINC BASO abs count 0.0 th/cmm L=0.0 H=0.2 704-7 LOINC IG abs count 0.0 th/cmm L=0.0 H=0.1 71593-7 LOINC NRBC abs count 0.0 mil/cmm L=0.0 H=0.0 02899-6 LOINC RBC 5.05 mil/cmm L=4.30 H=6.20 789-8 LOINC HEMOGLOBIN 15.6 gm/dL L=13.0 H=17.0 718-7 LOINC HEMATOCRIT 45 % L=45 H=52 4544-3 LOINC MCV 90 fL L=82 H=92 787-2 LOINC MCH 30.9 pg L=27.0 H=31.0 785-6 LOINC MCHC 34.5 % L=32.0 H=36.0 786-4 LOINC RDW-SD 37.9 fL L=39.0 H=49.0 788-0 LOINC L PLATELET COUNT 104 th/cmm L=150 H=450 777-3 LOINC L Social History Type Status Start Date End Date Code Code Syst em Smoking History Never smoker (Never Smoked) 538782531 SNOMED CT Sex Male Vital Signs Vital Sign Value Unit [place] Value [place]osc[place] Unit Date/Time Recent/Initial? Code Code System Body Mass Index 24.13 kg/m2 09/29/2022 08:32 Initial 24799 -5 LOINC Systolic Blood Pressure 166 mm[Hg] 09/29/2022 09:55 Most Recent 8480- 6 LOINC Diastolic Blood Pressure 94 mm[Hg] 09/29/2022 09:55 Most Recent 8462- 4 LOINC Systolic Blood Pressure 181 mm[Hg] 09/29/2022 08:32 Initial 8480- 6 LOINC Diastolic Blood Pressure 98 mm[Hg] 09/29/2022 08:32 Initial 8462- 4 LOINC Body Surface Area 1.98 m2 09/29/2022 08:32 Initial 3140- 1 LOINC Height 180.340 0 cm 71.00 in 09/29/2022 08:32 Initial 8302- 2 LOINC O2 Saturation 98 % 2021 09:55 Most Recent 13966 -5 LOINC O2 Saturation 99 % 2021 08:32 Initial 89364 -5 LOINC Pulse 57.0 /min 09/29/2022 09:55 Most Recent 8867- 4 LOINC Pulse 69.0 /min 09/29/2022 08:32 Initial 8867- 4 LOINC Respiration 16 /min 09/29/20 22 09:55 Most Recent 9279- 1 LOINC Respiration 18 /min 09/29/20 22 08:32 Initial 9279- 1 LOINC Temperature 36.4 Sendy 97.5 F 09/29/20 22 09:55 Most Recent 8310- 5 LOINC Temperature 34.4 Sendy 93.9 F 09/29/20 22 08:32 Initial 8310- 5 LOINC Weight 78.47 kg 173.00 lbs 09/29/2022 08:32 Initial 22234 -7 LOINC Medications Medication Start Date End Date Route Frequency Dose Code Code System Medication Instructions Home Meds Synthroid 100MCG Oral Tablet 08/27/2016 Unknown BY MOUTH Q7AM 100 MICROGRAM 026725 RxNorm TAKE 100 MICROGRAM BY MOUTH Q7AM Baclofen 10MG Oral Tablet 10/28/2017 Unknown ORAL NEEDED, DAILY 10 MILLIGRAMS 222536 RxNorm TAKE 10 MILLIGRAMS ORAL NEEDED, DAILY Metoprolol Succinate 50MG Oral Tablet, Extended Release 10/28/2017 Unknown ORAL DAILY 150 MILLIGRAMS 319013 RxNorm TAKE 150 MILLIGRAMS ORAL DAILY OMEPRAZOLE 20MG ORAL TABLET, DELAYE 10/28/2017 4 ORAL TWICE A DAY 20 MILLIGRAMS RxNorm TAKE 20 MILLIGRAMS ORAL TWICE A DAY VERAPAMIL ER 120 MG TABLET 10/28/2017 Unknown ORAL BEDTIME 120 MILLIGRAMS RxNorm TAKE 120 MILLIGRAMS ORAL BEDTIME predniSONE 20MG Oral Tablet 12/19/2023 4 ORAL DAILY 1 TABLET 546019 RxNorm TAKE 3 TABLETS DAILY FOR 3 [...] ic ROSIE Right inguinal hernia repair 01/20 [id number] X2010 12/29/2025 ProGri p [id number] AR Problems Problem Start Date Resolved Date Status Code Code System HIGH CHOLESTEROL 07/31/2022 resolved 78055457 SN OMED-CT GERD 07/31/2022 resolved 171789067 SNOMED-CT HYPOTHYROIDISM 07/31/2022 resolved 47746020 SNOM ED-CT BPH 07/31/2022 resolved 857505288 SNOMED-CT MIGRAINE 07/31/2022 resolved 26963866 SNOMED-CT AFIB 07/31/2022 resolved 53845494 SNOMED-CT THROMBOCYTOPENIA 07/31/2022 resolved 057732148 SN OMED-CT Allergies and Adverse Reactions Allergy Substance Reaction Severity Start Date Concern Status Code Code System AMBIEN Altered Mental Status (SNOMED-CT: 070251850) Active 429914 RxNorm AMITRIPTYLINE HCL Moderate Active 704 RxNor m Plan of Treatment Symptoms 01/02/2021 CT HEAD W/WO CONTRAST 02/24/2023 CT HEAD W/O CONTRAST 02/24/2023 X-RAY 12/11/2021 CT ABDOMEN/PELVIS W/O CONTRAST 09/15/20 X-RAY 08/28/2021 Encounters Encounter Diagnosis Start Date Code Code Sys tem Epistaxis 09/29/2022 SNOMED-CT Personal Care Team Section Performer Name Performer Role Active Date Inactive Da te
--- OUTSIDE RECORDS SUMMARY | 2024-07-24 17:12 | XMS_ITS ---
Author Organization Unknown Address [address] [place] [address] [phone] Phone Care Team Providers Care Shank Turner Name Role Phone JACINTA VIZCAINO Attending Unavailable CODI Arias Primary Unavailable Results COMPREHENSIVE METABOLIC PANKiara Mullins (CMP) - Collect Date/Time: 02/05/2023 12:15 [facility] ID: [id number] [address] [place], [place], [address] LOINC: 38919-1 Test Value Unit Reference Range Code Code System Flag GLUCOSE 92 mg/dL L=70 H=116 2345-7 LOINC BUN 21 mg/dL L=6 H=25 3094-0 LOINC CREATININE 1.24 mg/dL L=0.67 H=1.17 2160-0 LOINC H SODIUM SERUM 139 mmol/L L=136 H=145 2951-2 LOINC POTASSIUM SERUM 4.5 mmol/L L=3.4 H=5.2 2823-3 LOINC CHLORIDE SERUM 103 mmol/L L=96 H=110 2075-0 LOINC CARBON DIOXIDE (CO2) 29 mmol/L L=22 H=34 2028-9 LOINC ANION GAP 7.5 mmol/L 17058-5 LOINC CALCIUM SERUM 9.3 mg/dL L=8.2 H=10.2 83806-5 LOINC BILIRUBIN TOTAL 0.8 mg/dL L=0.0 H=1.3 1975-2 LOINC ALK. PHOS. 121 U/L L=46 H=116 6768-6 LOINC H SGOT (AST) 48 U/L L=15 H=37 1920-8 LOINC H SGPT (ALT) 27 U/L L=12 H=78 1742-6 LOINC TOTAL PROTEIN 7.2 gm/dL L=6.0 H=8.0 2885-2 LOINC ALBUMIN 4.2 gm/dL L=3.4 H=5.0 1751-7 LOINC AGE 72 years eGFR (non-Afr.Amer.) 58 mL/min 88943-4 LOINC eGFR (Afr-Haitian) 70 mL/min 68336-6 LOINC CBC W/ DIFFERENTIAL* - Colle ct Date/Time: 02/05/2023 12:15 [facility] ID: [id number] [address] [place], [place], [address] LOINC: 56344-9 Test Value Unit Reference Range Code Code System Flag WBC 6.04 th/cmm L=5.00 H=10.00 6690-2 LOINC NEUT % 72.1 % L=40.0 H=80.0 LYMPH % 14.1 % L=10.0 H=50.0 MONO % 10.9 % L=2.0 H=12.0 70436-0 LOINC EOS % 2.2 % L=0.0 H=8.0 BASO % 0.5 % L=0.0 H=3.0 IG % 0.2 % L=0.0 H=1.1 2514-8 LOINC NRBC % 0.0 % L=0.0 H=0.0 50447-7 LOINC NEUT abs count 4.4 th/cmm L=1.6 H=8.4 751-8 LOINC LYMPH abs count 0.9 th/cmm L=1.5 H=4.0 731-0 LOINC L MONO abs count 0.7 th/cmm L=0.2 H=1.0 742-7 LOINC EOS abs count 0.1 th/cmm L=0.0 H=0.5 711-2 LOINC BASO abs count 0.0 th/cmm L=0.0 H=0.2 704-7 LOINC IG abs count 0.0 th/cmm L=0.0 H=0.1 72604-4 LOINC NRBC abs count 0.0 mil/cmm L=0.0 H=0.0 33220-2 LOINC RBC 5.15 mil/cmm L=4.30 H=6.20 789-8 LOINC HEMOGLOBIN 15.9 gm/dL L=13.0 H=17.0 718-7 LOINC HEMATOCRIT 47 % L=45 H=52 4544-3 LOINC MCV 92 fL L=82 H=92 787-2 LOINC MCH 30.9 pg L=27.0 H=31.0 785-6 LOINC MCHC 33.5 % L=32.0 H=36.0 786-4 LOINC RDW-SD 40.8 fL L=39.0 H=49.0 788-0 LOINC PLATELET COUNT 102 th/cmm L=150 H=450 777-3 LOINC L Social History Type Status Start Date End Date Code Code Syst em Smoking History Never smoker (Never Smoked) 158908557 SNOMED CT Sex Male Medications Medication Start Date End Date Route Frequency Dose Code Code System Medication Instructions Home Meds Synthroid 100MCG Oral Tablet 08/27/2016 Unknown BY MOUTH Q7AM 100 MICROGRAM 400461 RxNorm TAKE 100 MICROGRAM BY MOUTH Q7AM Baclofen 10MG Oral Tablet 10/28/2017 Unknown ORAL NEEDED, DAILY 10 MILLIGRAMS 785430 RxNorm TAKE 10 MILLIGRAMS ORAL NEEDED, DAILY Metoprolol Succinate 50MG Oral Tablet, Extended Release 10/28/2017 Unknown ORAL DAILY 150 MILLIGRAMS 546636 RxNorm TAKE 150 MILLIGRAMS ORAL DAILY OMEPRAZOLE 20MG ORAL TABLET, DELAYE 10/28/2017 4 ORAL TWICE A DAY 20 MILLIGRAMS RxNorm TAKE 20 MILLIGRAMS ORAL TWICE A DAY VERAPAMIL ER 120 MG TABLET 10/28/2017 Unknown ORAL BEDTIME 120 MILLIGRAMS RxNorm TAKE 120 MILLIGRAMS ORAL BEDTIME predniSONE 20MG Oral Tablet 12/19/2023 4 ORAL DAILY 1 TABLET 225860 RxNorm TAKE 3 TABLETS DAILY FOR 3 [...] Distinct ID Code Brand Name Model Number Balaji-gyna ecological surgical mesh, composite- polymer 0110 8845 2151 3167 1726 0228 10PX C130 4X20 10 Active FDA Laparoscop ic ROSIE Right inguinal hernia repair 01/20 [id number] X2010 12/29/2025 ProGri p [id number] AR Problems Problem Start Date Resolved Date Status Code Code System HIGH CHOLESTEROL 07/31/2022 resolved 79683759 SN OMED-CT GERD 07/31/2022 resolved 051198887 SNOMED-CT HYPOTHYROIDISM 07/31/2022 resolved 59864469 SNOM ED-CT BPH 07/31/2022 resolved 683006245 SNOMED-CT MIGRAINE 07/31/2022 resolved 65410807 SNOMED-CT AFIB 07/31/2022 resolved 96847820 SNOMED-CT THROMBOCYTOPENIA 07/31/2022 resolved 785918893 SN OMED-CT Allergies and Adverse Reactions Allergy Substance Reaction Severity Start Date Concern Status Code Code System AMBIEN Altered Mental Status (SNOMED-CT: 969168307) Active 231061 RxNorm AMITRIPTYLINE HCL Moderate Active 704 RxNor m Plan of Treatment Symptoms 01/02/2021 CT HEAD W/WO CONTRAST 02/24/2023 CT HEAD W/O CONTRAST 02/24/2023 X-RAY 12/11/2021 CT ABDOMEN/PELVIS W/O CONTRAST 09/15/20 X-RAY 08/28/2021 Encounters Encounter Diagnosis Start Date Code Code Sys tem Other fatigue 02/05/2023 SNOMED-CT Personal Care Team Section Performer Name Performer Role Active Date Inactive Da te
--- OUTSIDE RECORDS SUMMARY | 2024-07-24 17:13 | XMS_ITS ---
Author Organization Unknown Address [address] [place] [address] [phone] Phone Care Team Providers Care Director Of Cardiology Service Line Name Role Phone PHOEBE GUZMAN Registered Nurse Unavailable ROBERT Arias Attending Unavailable CODI Arias Primary Unavailable UNLISTED PROVIDER - REQUESTED Xhandoff Un available Results CT FACIAL OR SINUS WO CONTRA ST - Completed: 05/13/2023 16:56 LOINC: [place], [place] [address] PACS BRAKE LINING FINISHER REPORT Patient Name: OVIDIO MINOR MRN: Sex: : Age: [id number] M 1950 73 Account: Accession: Admit: StayType: [id number] 05/13/2023 E/R Ordered: Order ID: Submitted: Ordering Provider: 05/13/2023 16:41 [id number] EJ HERRON Completed: Technologist: Resulted: 05/13/2023 16:56 TXC 05/14/2023 09:29 Study Description: CT HEAD AND CSPINE WO CONTRAST* Study Reason: Trauma Technique: Imaging Protocol: Axial computed tomography images with coronal and sagittal reformatted images were created and reviewed. Comparison: CT brain dated 10/04/2019 Findings: CT Head: Ventricles and Extra axial spaces: Normal in size and morphology for the patient's age. Hemorrhage: None. Cerebral parenchyma: Normal. Midline shift: None. Brainstem/Cerebellum: Normal. Calvarium: Normal. Visualized Paranasal sinuses/Mastoids: Clear. Soft Tissues: Unremarkable. CT Cervical Spine: Bones: No acute fracture or subluxation. Postsurgical changes of C4-C6 ACDF Soft Tissues: Unremarkable. Lung Apices: Clear. Impression: No acute intracranial process. No acute facial bone fracture. No acute fracture or subluxation in the cervical spine. Report Digitally Signed by Armando Llamas on 05/14/2023 09:[address] HEAD AND CSPINE WO CONTRA ST* - Completed: 05/13/2023 16:56 LOINC: [facility] [place], [place] [address] PACS BRAKE LINING FINISHER REPORT Patient Name: OVIDIO MINOR MRN: Sex: : Age: [id number] M 1950 73 Account: Accession: Admit: StayType: [id number] 05/13/2023 E/R Ordered: Order ID: Submitted: Ordering Provider: 05/13/2023 16:41 [id number] EJ HERRON Completed: Technologist: Resulted: 05/13/2023 16:56 TX 05/14/2023 09:00 Study Description: CT HEAD AND CSPINE WO CONTRAST* Study Reason: Trauma Technique: Imaging Protocol: Axial computed tomography images with coronal and sagittal reformatted images were created and reviewed. Comparison: CT brain dated 10/04/2019 FINDINGS: CT Head: Ventricles and Extra axial spaces: Normal in size and morphology for the patient's age. Hemorrhage: None. Cerebral parenchyma: Normal. Midline shift: None. Brainstem/Cerebellum: Normal. Calvarium: Normal. Visualized Paranasal sinuses/Mastoids: Clear. Soft Tissues: Unremarkable. CT Cervical Spine: Bones: No acute fracture or subluxation. Postsurgical changes of C4-C6 ACDF Soft Tissues: Unremarkable. Lung Apices: Clear. IMPRESSION: No acute intracranial process. No acute facial bone fracture. No acute fracture or subluxation in the cervical spine. Radiation Optimization: All CT scans at this facility use at least one of these dose optimization techniques: automated exposure control; mA and/or kV adjustment per patient size (includes targeted exams where dose is matched to clinical indication); or iterative reconstruction. Report Digitally Signed by Armando Llamas on 05/14/2023 09:00 AM EDT XR CHEST 2V PA AND LATERAL - Completed: 05/13/2023 16:10 LOINC: [facility] [place], [place] [address] PACS BRAKE [employer] FINISHER REPORT Patient Name: OVIDIO MINOR MRN: Sex: : Age: [id number] M 1950 73 Account: Accession: Admit: StayType: [id number] 05/13/2023 E/R Ordered: Order ID: Submitted: Ordering Provider: 05/13/2023 15:53 [id number] EJ DAWKINS Completed: Technologist: Resulted: 05/13/2023 16:10 BSK 05/14/2023 09:30 Study Description: XR CHEST 2V PA AND LATERAL Study Reason: Trauma Technique: 2D digital imaging was performed of the chest. 2 images were obtained. Comparison: 06/06/2020 FINDINGS: MEDIASTINUM: Normal. HEART: Normal. PULMONARY VASCULATURE: Normal. LUNGS: Clear. PLEURAL SPACE: No pleural effusion or pneumothorax. BONE:Within normal limits for the patient's age. OTHER FINDINGS: Left chest wall electronic monitoring device is unchanged in position. IMPRESSION: No acute finding. Report Digitally Signed by Armando Llamas on 05/14/2023 09:30 AM EDT Social History Type Status Start Date End Date Code Code Syst em Smoking History Never smoker (Never Smoked) 149665928 SNOMED CT Sex Male Vital Signs Vital Sign Value Unit [place] Value [place] Unit Date/Time Recent/Initial? Code Code System Systolic Blood Pressure 178 mm[Hg] 05/13/2023 18:18 Most Recent 8480-6 LOINC Diastolic Blood Pressure 98 mm[Hg] 05/13/2023 18:18 Most Recent 8462-4 LOINC Systolic Blood Pressure 183 mm[Hg] 05/13/2023 15:52 Initial 8480-6 LOINC Diastolic Blood Pressure 97 mm[Hg] 05/13/2023 15:52 Initial 8462-4 LOINC O2 Saturation 97 % 2022 18:18 Most Recent 12955- 5 LOINC O2 Saturation 99 % 2022 15:52 Initial 83614- 5 LOINC Pulse 78.0 /min 05/13/2023 18:18 Most Recent 8867-4 LOINC Pulse 70.0 /min 05/13/2023 15:52 Initial 8867-4 LOINC Respiration 16 /min 05/13/20 18:18 Most Recent 9279-1 LOINC Respiration 18 /min 05/13/20 17:42 Initial 9279-1 LOINC Temperature 36.6 Sendy 97.9 F 05/13/20 18:18 Initial 8310-5 LOINC Medications Medication Start Date End Date Route Frequency Dose Code Code System Medication Instructions Home Meds Synthroid 100MCG Oral Tablet 08/27/2016 Unknown BY MOUTH Q7AM 100 MICROGRAM 636261 RxNorm TAKE 100 MICROGRAM BY MOUTH Q7AM Baclofen 10MG Oral Tablet 10/28/2017 Unknown ORAL NEEDED, DAILY 10 MILLIGRAMS 780097 RxNorm TAKE 10 MILLIGRAMS ORAL NEEDED, DAILY Metoprolol Succinate 50MG Oral Tablet, Extended Release 10/28/2017 Unknown ORAL DAILY 150 MILLIGRAMS 531335 RxNorm TAKE 150 MILLIGRAMS ORAL DAILY OMEPRAZOLE 20MG ORAL TABLET, DELAYE 10/28/2017 4 ORAL TWICE A DAY 20 MILLIGRAMS RxNorm TAKE 20 MILLIGRAMS ORAL TWICE A DAY VERAPAMIL ER 120 MG TABLET 10/28/2017 Unknown ORAL BEDTIME 120 MILLIGRAMS RxNorm TAKE 120 MILLIGRAMS ORAL BEDTIME predniSONE 20MG Oral Tablet 12/19/2023 4 ORAL DAILY 1 TABLET 754477 RxNorm TAKE 3 TABLETS DAILY FOR 3 [...] ic ROSIE Right inguinal hernia repair 01/20 [id number] X2010 12/29/2025 ProGri p [id number] AR Problems Problem Start Date Resolved Date Status Code Code System HIGH CHOLESTEROL 07/31/2022 resolved 42773525 SN OMED-CT GERD 07/31/2022 resolved [id number] SNOMED-CT HYPOTHYROIDISM 07/31/2022 resolved [id number] SNOM ED-CT BPH 07/31/2022 resolved [id number] SNOMED-CT MIGRAINE 07/31/2022 resolved 93300597 SNOMED-CT AFIB 07/31/2022 resolved 66595609 SNOMED-CT THROMBOCYTOPENIA 07/31/2022 resolved 566522880 SN OMED-CT Allergies and Adverse Reactions Allergy Substance Reaction Severity Start Date Concern Status Code Code System AMBIEN Altered Mental Status (SNOMED-CT: [id number]) Active 385283 RxNorm AMITRIPTYLINE HCL Moderate Active 704 RxNor m Plan of Treatment Symptoms 01/02/2021 CT HEAD W/WO CONTRAST 02/24/2023 CT HEAD W/O CONTRAST 02/24/2023 X-RAY 12/11/2021 CT ABDOMEN/PELVIS W/O CONTRAST 09/15/20 21 X-RAY 08/28/2021 Encounters Encounter Diagnosis Start Date Code Code Sys tem Contusion of right chest wall 05/13/2023 [id number] SNOMED-CT Personal Care Team Section Performer Name Performer Role Active Date Inactive Da te
--- OUTSIDE RECORDS SUMMARY | 2024-07-24 17:13 | XMS_ITS ---
Author Organization Unknown Address [address] [place] [address] [phone] Phone Care Team Providers Care Facial Operator Name Role Phone JACINTA VIZCAINO Attending Unavailable CODI Arias Primary Unavailable Results CT ANGIOGRAPHY HEAD NECK WWO 3D* - Completed: 02/24/2023 11:57 LOINC: [facility] [place], [place] [address] PACS MANAGER GRAPHIC REPORT Patient Name: OVIDIO MINOR MRN: Sex: : Age: [id number] M 1950 [id number] Account: Accession: Admit: StayType: [id number] 02/24/2023 O/P Ordered: Order ID: Submitted: Ordering Provider: 02/24/2023 11:01 [id number] KT CHARIS WORKMAN Completed: Technologist: Resulted: 02/24/2023 11:01 02/24/2023 11:46 Study Description: CT ANGIOGRAPHY HEAD NECK WWO 3D* Study Reason: R Technique: Imaging Protocol: Axial computed tomography images with coronal and sagittal reformatted images were created and reviewed. Contrast Material: Intravenous: Omnipaque. Contrast volume: 100 mL Comparison: Comparison is made with prior examinations. FINDINGS: CT Head W and W/O: Ventricles and Extra axial spaces: Normal in size and morphology for the patient's age. Hemorrhage: None. Cerebral parenchyma: There is no evidence of an acute territorial infarct. There is an area of encephalomalacia involving the posterior right parietal lobe. There are areas of decreased attenuation in the white matter most consistent with small vessel ischemic disease. Midline shift: None. Brainstem/Cerebellum: Normal. Calvarium: Normal. Visualized Paranasal sinuses/Mastoids: Clear. Soft Tissues: Unremarkable. CTA Neck W: Common Carotid: Right: No dissection, occlusion or significant stenosis. Left: No dissection, occlusion or significant stenosis. External Carotid: Right: No occlusion or significant stenosis. Left: No occlusion or significant stenosis. Internal Carotid: Right: No dissection, occlusion or significant stenosis. There is mild atherosclerosis. Left: No dissection, occlusion or significant stenosis. There is mild atherosclerosis. Vertebral Artery: Right: No dissection, occlusion or significant stenosis. Left: No dissection, occlusion or significant stenosis. Lung Apices: Normal. Bones: There is anterior cervical disc fusion from C4-C6. Soft Tissues: Normal. CTA Brain W: Internal Carotid Arteries: Atherosclerosis is present. No aneurysm, occlusion or significant stenosis. Anterior Cerebral Arteries: Right: No aneurysm, occlusion or significant stenosis. Left: No aneurysm, occlusion or significant stenosis. Middle Cerebral Arteries: Right: No aneurysm, occlusion or significant stenosis. Left: No aneurysm, occlusion or significant stenosis. Posterior cerebral Arteries: Right: No aneurysm, occlusion or significant stenosis. Left: No aneurysm, occlusion or significant stenosis. Vertebral Arteries: Right: No aneurysm, occlusion or significant stenosis. Left: No aneurysm, occlusion or significant stenosis. Basilar Artery: No aneurysm, occlusion or significant stenosis. IMPRESSION: 1. No large vessel occlusion or significant stenosis. Atherosclerosis is present. 2. No acute intracranial process. Cerebral atrophy and small vessel ischemic disease is present. 3. No vessel occlusion or significant stenosis. Atherosclerosis is present. Radiation Optimization: All CT scans at this facility use at least one of these dose optimization techniques: automated exposure control; mA and/or kV adjustment per patient size (includes targeted exams where dose is matched to clinical indication); or iterative reconstruction. Report Digitally Signed by Alfred Theodore on 02/24/2023 11:46 AM EDT 02/24/[email or web address].to SHIRARICKEY via fax Social History Type Status Start Date End Date Code Code Syst em Smoking History Never smoker (Never Smoked) 583524214 SNOMED CT Sex Male Medications Medication Start Date End Date Route Frequency Dose Code Code System Medication Instructions Home Meds Synthroid 100MCG Oral Tablet 08/27/2016 Unknown BY MOUTH Q7AM 100 MICROGRAM 547163 RxNorm TAKE 100 MICROGRAM BY MOUTH Q7AM Baclofen 10MG Oral Tablet 10/28/2017 Unknown ORAL NEEDED, DAILY 10 MILLIGRAMS 000279 RxNorm TAKE 10 MILLIGRAMS ORAL NEEDED, DAILY Metoprolol Succinate 50MG Oral Tablet, Extended Release 10/28/2017 Unknown ORAL DAILY 150 MILLIGRAMS 164903 RxNorm TAKE 150 MILLIGRAMS ORAL DAILY OMEPRAZOLE 20MG ORAL TABLET, DELAYE 10/28/2017 4 ORAL TWICE A DAY 20 MILLIGRAMS RxNorm TAKE 20 MILLIGRAMS ORAL TWICE A DAY VERAPAMIL ER 120 MG TABLET 10/28/2017 Unknown ORAL BEDTIME 120 MILLIGRAMS RxNorm TAKE 120 MILLIGRAMS ORAL BEDTIME predniSONE 20MG Oral Tablet 12/19/2023 4 ORAL DAILY 1 TABLET 746780 RxNorm TAKE 3 TABLETS DAILY FOR 3 [...] ic ROSIE Right inguinal hernia repair 01/20 [id number] X2010 12/29/2025 ProGri p [id number] AR Problems Problem Start Date Resolved Date Status Code Code System HIGH CHOLESTEROL 07/31/2022 resolved 71187188 SN OMED-CT GERD 07/31/2022 resolved 186951186 SNOMED-CT HYPOTHYROIDISM 07/31/2022 resolved 71361621 SNOM ED-CT BPH 07/31/2022 resolved 870427363 SNOMED-CT MIGRAINE 07/31/2022 resolved 26029405 SNOMED-CT AFIB 07/31/2022 resolved 24419270 SNOMED-CT THROMBOCYTOPENIA 07/31/2022 resolved 399544194 SN OMED-CT Allergies and Adverse Reactions Allergy Substance Reaction Severity Start Date Concern Status Code Code System AMBIEN Altered Mental Status (SNOMED-CT: 000857405) Active 018828 RxNorm AMITRIPTYLINE HCL Moderate Active 704 RxNor m Plan of Treatment Symptoms 01/02/2021 CT HEAD W/WO CONTRAST 02/24/2023 CT HEAD W/O CONTRAST 02/24/2023 X-RAY 12/11/2021 CT ABDOMEN/PELVIS W/O CONTRAST 09/15/20 21 X-RAY 08/28/2021 Encounters Encounter Diagnosis Start Date Code Code Sys tem Occlusion and stenosis of bilateral carotid arteries 0 02/24/2023 SNOMED-CT Personal Care Team Section Performer Name Performer Role Active Date Inactive Da te
--- OUTSIDE RECORDS SUMMARY | 2024-07-24 17:14 | XMS_ITS ---
Author Organization Unknown Address [address] [place] [address] [phone] Phone Care Team Providers Care Baby Registry Sales Consultant Name Role Phone JACINTA VIZCAINO Attending Unavailable CODI Arias Primary Unavailable Results CBC W/ DIFFERENTIAL* - Colle ct Date/Time: 05/31/2023 13:05 [facility] ID: [id number] [address], [place], [address] LOINC: 08961-9 Test Value Unit Reference Range Code Code System Flag WBC 6.25 th/cmm L=5.00 H=10.00 6690-2 LOINC NEUT % 71.9 % L=40.0 H=80.0 LYMPH % 11.5 % L=10.0 H=50.0 MONO % 11.7 % L=2.0 H=12.0 70832-7 LOINC EOS % 3.7 % L=0.0 H=8.0 BASO % 1.0 % L=0.0 H=3.0 IG % 0.2 % L=0.0 H=1.1 2514-8 LOINC NRBC % 0.0 % L=0.0 H=0.0 62099-6 LOINC NEUT abs count 4.5 th/cmm L=1.6 H=8.4 751-8 LOINC LYMPH abs count 0.7 th/cmm L=1.5 H=4.0 731-0 LOINC L MONO abs count 0.7 th/cmm L=0.2 H=1.0 742-7 LOINC EOS abs count 0.2 th/cmm L=0.0 H=0.5 711-2 LOINC BASO abs count 0.1 th/cmm L=0.0 H=0.2 704-7 LOINC IG abs count 0.0 th/cmm L=0.0 H=0.1 26340-1 LOINC NRBC abs count 0.0 mil/cmm L=0.0 H=0.0 38913-8 LOINC RBC 4.65 mil/cmm L=4.30 H=6.20 789-8 LOINC HEMOGLOBIN 14.1 gm/dL L=13.0 H=17.0 718-7 LOINC HEMATOCRIT 43 % L=45 H=52 4544-3 LOINC L MCV 92 fL L=82 H=92 787-2 LOINC MCH 30.3 pg L=27.0 H=31.0 785-6 LOINC MCHC 32.9 % L=32.0 H=36.0 786-4 LOINC RDW-SD 41.0 fL L=39.0 H=49.0 788-0 LOINC PLATELET COUNT 95 th/cmm L=150 H=450 777-3 LOINC L COMPREHENSIVE METABOLIC PANE L (CMP) - Collect Date/Time: 05/31/2023 13:05 [facility] ID: [id number] [address], [place], [address] LOINC: 14833-2 Test Value Unit Reference Range Code Code System Flag GLUCOSE 111 mg/dL L=70 H=116 2345-7 LOINC BUN 20 mg/dL L=6 H=25 3094-0 LOINC CREATININE 1.47 mg/dL L=0.67 H=1.17 2160-0 LOINC H SODIUM SERUM 141 mmol/L L=136 H=145 2951-2 LOINC POTASSIUM SERUM 4.5 mmol/L L=3.4 H=5.2 2823-3 LOINC CHLORIDE SERUM 106 mmol/L L=96 H=110 2075-0 LOINC CARBON DIOXIDE (CO2) 28 mmol/L L=22 H=34 2028-9 LOINC ANION GAP 7.3 mmol/L 87183-8 LOINC CALCIUM SERUM 8.9 mg/dL L=8.2 H=10.2 81315-5 LOINC BILIRUBIN TOTAL 0.4 mg/dL L=0.0 H=1.3 1975-2 LOINC ALK. PHOS. 131 U/L L=46 H=116 6768-6 LOINC H SGOT (AST) 36 U/L L=15 H=37 1920-8 LOINC SGPT (ALT) 23 U/L L=12 H=78 1742-6 LOINC TOTAL PROTEIN 6.6 gm/dL L=6.0 H=8.0 2885-2 LOINC ALBUMIN 3.5 gm/dL L=3.4 H=5.0 1751-7 LOINC AGE 73 years eGFR (non-Afr.Amer.) 47 mL/min 08875-9 LOINC eGFR (Afr-Citizen Of [place]) 57 mL/min 19122-3 LOINC TEGRETOL (CARBAMAZEPINE) - C ollect Date/Time: 05/31/2023 13:05 [facility] ID: [id number] [address] [place] [address], [address] LOINC: 3432-2 Test Value Unit Reference Range Code Code System Flag CARBAMAZEPINE 2.4 mcg/mL L=4.0 H=12.0 3432-2 LOINC L Social History Type Status Start Date End Date Code Code Syst em Smoking History Never smoker (Never Smoked) 299496001 SNOMED CT Sex Male Medications Medication Start Date End Date Route Frequency Dose Code Code System Medication Instructions Home Meds Synthroid 100MCG Oral Tablet 08/27/2016 Unknown BY MOUTH Q7AM 100 MICROGRAM 149179 RxNorm TAKE 100 MICROGRAM BY MOUTH Q7AM Baclofen 10MG Oral Tablet 10/28/2017 Unknown ORAL NEEDED, DAILY 10 MILLIGRAMS 065967 RxNorm TAKE 10 MILLIGRAMS ORAL NEEDED, DAILY Metoprolol Succinate 50MG Oral Tablet, Extended Release 10/28/2017 Unknown ORAL DAILY 150 MILLIGRAMS 864843 RxNorm TAKE 150 MILLIGRAMS ORAL DAILY OMEPRAZOLE 20MG ORAL TABLET, DELAYE 10/28/2017 4 ORAL TWICE A DAY 20 MILLIGRAMS RxNorm TAKE 20 MILLIGRAMS ORAL TWICE A DAY VERAPAMIL ER 120 MG TABLET 10/28/2017 Unknown ORAL BEDTIME 120 MILLIGRAMS RxNorm TAKE 120 MILLIGRAMS ORAL BEDTIME predniSONE 20MG Oral Tablet 12/19/2023 4 ORAL DAILY 1 TABLET 663447 RxNorm TAKE 3 TABLETS DAILY FOR 3 [...] ic ROSIE Right inguinal hernia repair 01/20 [id number] X2010 12/29/2025 ProGri p [id number] AR Problems Problem Start Date Resolved Date Status Code Code System HIGH CHOLESTEROL 07/31/2022 resolved 14729425 SN OMED-CT GERD 07/31/2022 resolved 771963979 SNOMED-CT HYPOTHYROIDISM 07/31/2022 resolved 08094090 SNOM ED-CT BPH 07/31/2022 resolved 100547225 SNOMED-CT MIGRAINE 07/31/2022 resolved 00232826 SNOMED-CT AFIB 07/31/2022 resolved 02320908 SNOMED-CT THROMBOCYTOPENIA 07/31/2022 resolved 053139973 SN OMED-CT Allergies and Adverse Reactions Allergy Substance Reaction Severity Start Date Concern Status Code Code System AMBIEN Altered Mental Status (SNOMED-CT: 955022072) Active 939772 RxNorm AMITRIPTYLINE HCL Moderate Active 704 RxNor m Plan of Treatment Symptoms 01/02/2021 CT HEAD W/WO CONTRAST 02/24/2023 CT HEAD W/O CONTRAST 02/24/2023 X-RAY 12/11/2021 CT ABDOMEN/PELVIS W/O CONTRAST 09/15/20 21 X-RAY 08/28/2021 Encounters Encounter Diagnosis Start Date Code Code Sys tem Trigeminal neuralgia 05/31/2023 SNOMED- CT Personal Care Team Section Performer Name Performer Role Active Date Inactive Da te
--- OUTSIDE RECORDS SUMMARY | 2024-07-24 17:14 | XMS_ITS ---
Author Organization Unknown Address [address] [place] [address] [phone] Phone Care Team Providers Care Net Programmer Analyst Name Role Phone JACINTA VIZCAINO Attending Unavailable CODI Arias Primary Unavailable Social History Type Status Start Date End Date Code Code Syst em Smoking History Never smoker (Never Smoked) 783655502 SNOMED CT Sex Male Medications Medication Start Date End Date Route Frequency Dose Code Code System Medication Instructions Home Meds Synthroid 100MCG Oral Tablet 08/27/2016 Unknown BY MOUTH Q7AM 100 MICROGRAM 817611 RxNorm TAKE 100 MICROGRAM BY MOUTH Q7AM Baclofen 10MG Oral Tablet 10/28/2017 Unknown ORAL NEEDED, DAILY 10 MILLIGRAMS 131774 RxNorm TAKE 10 MILLIGRAMS ORAL NEEDED, DAILY Metoprolol Succinate 50MG Oral Tablet, Extended Release 10/28/2017 Unknown ORAL DAILY 150 MILLIGRAMS 166820 RxNorm TAKE 150 MILLIGRAMS ORAL DAILY OMEPRAZOLE 20MG ORAL TABLET, DELAYE 10/28/2017 4 ORAL TWICE A DAY 20 MILLIGRAMS RxNorm TAKE 20 MILLIGRAMS ORAL TWICE A DAY VERAPAMIL ER 120 MG TABLET 10/28/2017 Unknown ORAL BEDTIME 120 MILLIGRAMS RxNorm TAKE 120 MILLIGRAMS ORAL BEDTIME predniSONE 20MG Oral Tablet 12/19/2023 4 ORAL DAILY 1 TABLET 280567 RxNorm TAKE 3 TABLETS DAILY FOR 3 [...] ic ROSIE Right inguinal hernia repair 01/20 [id number] X2010 12/29/2025 ProGri p [id number] AR Problems Problem Start Date Resolved Date Status Code Code System HIGH CHOLESTEROL 07/31/2022 resolved 80136628 SN OMED-CT GERD 07/31/2022 resolved 906604417 SNOMED-CT HYPOTHYROIDISM 07/31/2022 resolved 86853666 SNOM ED-CT BPH 07/31/2022 resolved 608687644 SNOMED-CT MIGRAINE 07/31/2022 resolved 96781325 SNOMED-CT AFIB 07/31/2022 resolved 76085171 SNOMED-CT THROMBOCYTOPENIA 07/31/2022 resolved 369381824 SN OMED-CT Allergies and Adverse Reactions Allergy Substance Reaction Severity Start Date Concern Status Code Code System AMBIEN Altered Mental Status (SNOMED-CT: 855678905) Active 253615 RxNorm AMITRIPTYLINE HCL Moderate Active 704 RxNor m Plan of Treatment Symptoms 01/02/2021 CT HEAD W/WO CONTRAST 02/24/2023 CT HEAD W/O CONTRAST 02/24/2023 X-RAY 12/11/2021 CT ABDOMEN/PELVIS W/O CONTRAST 09/15/20 21 X-RAY 08/28/2021 Encounters Encounter Diagnosis Start Date Code Code Sys tem Chronic migraine without aur a, intractable, without status migrainosus 07/08/2023 SNOMED-CT Personal Care Team Section Performer Name Performer Role Active Date Inactive Da te
--- OUTSIDE RECORDS SUMMARY | 2024-07-24 17:14 | XMS_ITS ---
Author Organization Unknown Address [address] [place] [address] [phone] Phone Care Team Providers Care Plating Equipment Tender Name Role Phone CODI Arias Attending Unavailable Results BASIC METABOLIC PANEL (BMP) - Collect Date/Time: 07/16/2023 14:16 [facility] ID: [id number] [address], [place], [address] LOINC: 73762-7 Test Value Unit Reference Range Code Code System Flag GLUCOSE 100 mg/dL L=70 H=116 2345-7 LOINC BUN 22 mg/dL L=6 H=25 3094-0 LOINC CREATININE 1.43 mg/dL L=0.67 H=1.17 2160-0 LOINC H SODIUM SERUM 138 mmol/L L=136 H=145 2951-2 LOINC POTASSIUM SERUM 5.3 mmol/L L=3.4 H=5.2 2823-3 LOINC H CHLORIDE SERUM 103 mmol/L L=96 H=110 2075-0 LOINC CARBON DIOXIDE (CO2) 32 mmol/L L=22 H=34 2028-9 LOINC ANION GAP 2.8 mmol/L 17514-4 LOINC CALCIUM SERUM 9.3 mg/dL L=8.2 H=10.2 47239-0 LOINC AGE 73 years eGFR (non-Afr.Amer.) 49 mL/min 84457-5 LOINC eGFR (Afr-[place]ian) 59 mL/min 38222-8 LOINC Social History Type Status Start Date End Date Code Code Syst em Smoking History Never smoker (Never Smoked) 080846867 SNOMED CT Sex Male Medications Medication Start Date End Date Route Frequency Dose Code Code System Medication Instructions Home Meds Synthroid 100MCG Oral Tablet 08/27/2016 Unknown BY MOUTH Q7AM 100 MICROGRAM 087387 RxNorm TAKE 100 MICROGRAM BY MOUTH Q7AM Baclofen 10MG Oral Tablet 10/28/2017 Unknown ORAL NEEDED, DAILY 10 MILLIGRAMS 665171 RxNorm TAKE 10 MILLIGRAMS ORAL NEEDED, DAILY Metoprolol Succinate 50MG Oral Tablet, Extended Release 10/28/2017 Unknown ORAL DAILY 150 MILLIGRAMS 292392 RxNorm TAKE 150 MILLIGRAMS ORAL DAILY OMEPRAZOLE 20MG ORAL TABLET, DELAYE 10/28/2017 4 ORAL TWICE A DAY 20 MILLIGRAMS RxNorm TAKE 20 MILLIGRAMS ORAL TWICE A DAY VERAPAMIL ER 120 MG TABLET 10/28/2017 Unknown ORAL BEDTIME 120 MILLIGRAMS RxNorm TAKE 120 MILLIGRAMS ORAL BEDTIME predniSONE 20MG Oral Tablet 12/19/2023 4 ORAL DAILY 1 TABLET 466529 RxNorm TAKE 3 TABLETS DAILY FOR 3 [...] ic ROSIE Right inguinal hernia repair 01/20 [id number] X2010 12/29/2025 ProGri p [id number] AR Problems Problem Start Date Resolved Date Status Code Code System HIGH CHOLESTEROL 07/31/2022 resolved 59170241 SN OMED-CT GERD 07/31/2022 resolved 884194622 SNOMED-CT HYPOTHYROIDISM 07/31/2022 resolved 92489005 SNOM ED-CT BPH 07/31/2022 resolved 824195525 SNOMED-CT MIGRAINE 07/31/2022 resolved 32226728 SNOMED-CT AFIB 07/31/2022 resolved 58073683 SNOMED-CT THROMBOCYTOPENIA 07/31/2022 resolved 340911861 SN OMED-CT Allergies and Adverse Reactions Allergy Substance Reaction Severity Start Date Concern Status Code Code System AMBIEN Altered Mental Status (SNOMED-CT: 775762398) Active 994708 RxNorm AMITRIPTYLINE HCL Moderate Active 704 RxNor m Plan of Treatment Symptoms 01/02/2021 CT HEAD W/WO CONTRAST 02/24/2023 CT HEAD W/O CONTRAST 02/24/2023 X-RAY 12/11/2021 CT ABDOMEN/PELVIS W/O CONTRAST 09/15/20 21 X-RAY 08/28/2021 Encounters Encounter Diagnosis Start Date Code Code Sys tem Disorder of kidney and/or ureter 07/16/2023 03962543 0 SNOMED-CT Personal Care Team Section Performer Name Performer Role Active Date Inactive Da te
--- OUTSIDE RECORDS SUMMARY | 2024-07-24 17:15 | XMS_ITS ---
Author Organization Unknown Address [address] [place] [address] [phone] Phone Care Team Providers Care Brick Molder Hand Name Role Phone CHAPARRITA COOPER Registered Nurse Unavailable NAEEM Christopher Attending Unavailable CODI Arias Primary Unavailable UNLISTED PROVIDER - REQUESTED Xhandoff Un available Social History Type Status Start Date End Date Code Code Syst em Smoking History Never smoker (Never Smoked) 344556249 SNOMED CT Sex Male Vital Signs Vital Sign Value Unit [place] Value [place] Unit Date/Time Recent/Initial? Code Code System Body Mass Index 22.04 kg/m2 12/19/2023 23:01 Initial 83171 -5 LOINC Systolic Blood Pressure 162 mm[Hg] 12/20/2023 00:12 Most Recent 8480- 6 LOINC Diastolic Blood Pressure 90 mm[Hg] 12/20/2023 00:12 Most Recent 8462- 4 LOINC Systolic Blood Pressure 176 mm[Hg] 12/19/2023 23:01 Initial 8480- 6 LOINC Diastolic Blood Pressure 90 mm[Hg] 12/19/2023 23:01 Initial 8462- 4 LOINC Body Surface Area 1.89 m2 12/19/2023 23:01 Initial 3140- 1 LOINC Height 180.340 0 cm 71.00 in 12/19/2023 23:01 Initial 8302- 2 LOINC O2 Saturation 97 % 2023 00:12 Most Recent 86797 -5 LOINC O2 Saturation 100 % 2023 23:01 Initial 85407 -5 LOINC Pulse 72.0 /min 12/20/2023 00:12 Most Recent 8867- 4 LOINC Pulse 67.0 /min 12/19/2023 23:01 Initial 8867- 4 LOINC Respiration 18 /min 12/20/19 24 00:12 Most Recent 9279- 1 [facility] Respiration 18 /min 12/19/19 24 23:01 Initial 9279- 1 [facility] Temperature 35.6 Sendy 96.1 F 12/19/19 24 23:01 Initial 8310- 5 [facility] Weight 71.67 kg 158.00 lbs 12/19/2023 23:01 Initial 47464 -7 [facility] Medications Medication Start Date End Date Route Frequency Dose Code Code System Medication Instructions Home Meds Synthroid 100MCG Oral Tablet 08/27/2016 Unknown BY MOUTH Q7AM 100 MICROGRAM 304112 RxNorm TAKE 100 MICROGRAM BY MOUTH Q7AM Baclofen 10MG Oral Tablet 10/28/2017 Unknown ORAL NEEDED, DAILY 10 MILLIGRAMS 107164 RxNorm TAKE 10 MILLIGRAMS ORAL NEEDED, DAILY Metoprolol Succinate 50MG Oral Tablet, Extended Release 10/28/2017 Unknown ORAL DAILY 150 MILLIGRAMS 821696 RxNorm TAKE 150 MILLIGRAMS ORAL DAILY OMEPRAZOLE 20MG ORAL TABLET, DELAYE 10/28/2017 4 ORAL TWICE A DAY 20 MILLIGRAMS RxNorm TAKE 20 MILLIGRAMS ORAL TWICE A DAY VERAPAMIL ER 120 MG TABLET 10/28/2017 Unknown ORAL BEDTIME 120 MILLIGRAMS RxNorm TAKE 120 MILLIGRAMS ORAL BEDTIME predniSONE 20MG Oral Tablet 12/19/2023 4 ORAL DAILY 1 TABLET 086162 RxNorm TAKE 3 TABLETS DAILY FOR 3 [...] ic ROSIE Right inguinal hernia repair 01/20 [id number] X2010 12/29/2025 ProGri p [id number] [place] Problems Problem Start Date Resolved Date Status Code Code System HIGH CHOLESTEROL 07/31/2022 resolved 25686436 SN OMED-CT GERD 07/31/2022 resolved 247011537 SNOMED-CT HYPOTHYROIDISM 07/31/2022 resolved 94166582 SNOM ED-CT BPH 07/31/2022 resolved 693431557 SNOMED-CT MIGRAINE 07/31/2022 resolved 65171432 SNOMED-CT AFIB 07/31/2022 resolved 64762016 SNOMED-CT THROMBOCYTOPENIA 07/31/2022 resolved 292597347 SN OMED-CT Allergies and Adverse Reactions Allergy Substance Reaction Severity Start Date Concern Status Code Code System AMBIEN Altered Mental Status (SNOMED-CT: 281802712) Active 908455 RxNorm AMITRIPTYLINE HCL Moderate Active 704 RxNor m Plan of Treatment Symptoms 01/02/2021 CT HEAD W/WO CONTRAST 02/24/2023 CT HEAD W/O CONTRAST 02/24/2023 X-RAY 12/11/2021 CT ABDOMEN/PELVIS W/O CONTRAST 09/15/20 X-RAY 08/28/2021 Encounters Encounter Diagnosis Start Date Code Code Sys tem Gout, unspecified 12/19/2023 SNOMED-CT Personal Care Team Section Performer Name Performer Role Active Date Inactive Da te
--- OUTSIDE RECORDS SUMMARY | 2024-07-24 17:15 | XMS_ITS ---
Author Organization Unknown Address [address] [place] [address] [phone] Phone Care Team Providers Care Hand Spring Repairer Name Role Phone RODRIGUE HEMPHILL Registered Nurse Unavailable STERLING Craig Attending Unavailable CODI Arias Primary Unavailable UNLISTED PROVIDER - REQUESTED Xhandoff Un available Results LACTIC ACID - Collect Date/T kinza: 12/25/2023 01:55 [facility] ID: [id number] [address] [place] [address], [address] LOINC: Test Value Unit Reference Range Code Code System Flag LACTIC ACID 2.3 mmol/L L=0.7 H=2.1 48282-3 LOINC H URINALYSIS WITH MICROSCOPIC* - Collect Date/Time: 12/25/2023 00:45 [facility] ID: [id number] [address] [place] [address], [address] LOINC: 83623-0 Test Value Unit Reference Range Code Code System Flag COLLECTION MODE: CLEAN CATCH 78320-8 LOINC Color YELLOW yellow 5778-6 LOINC Appearance CLEAR clear 5767-9 LOINC Glucose urine 100 negative mg/dl 09598-0 LOINC A Bilirubin NEGATIVE negative 5770-3 LOINC Ketones NEGATIVE negative mg/dl 2514-8 LOINC Spec gravity 1.020 1.003 - 1.030 5811-5 LOINC pH urine 6.0 5.0 - 7.0 2756-5 LOINC Protein NEGATIVE negative mg/dl 73883-1 LOINC Urobilinogen 0.2 <or= 1 EU/dl 64261-5 LOINC Nitrite NEGATIVE negative 5802-4 LOINC Blood TRACE-LY negative 5794-3 LOINC A Leukocytes NEGATIVE negative 23057-3 LOINC WBCs none 0-5 / hpf RBCs 5-10 0-5 / hpf 71252-0 LOINC Epith cells 0-5 0-5 / hpf 83372-7 LOINC Cell types squamous Crystals none none Bacteria minimal none Mucus none none Casts none none /lpf Other LACTIC ACID - Collect Date/T kinza: 12/25/2023 00:05 [facility] ID: [id number] [address] [place] [address], [address] LOINC: Test Value Unit Reference Range Code Code System Flag LACTIC ACID 2.6 mmol/L L=0.7 H=2.1 77052-3 LOINC H LIPASE* NEW - Collect Date/T kinza: 12/25/2023 00:05 [facility] ID: [id number] [address] [place] [address], [phone] LOINC: 3040-3 Test Value Unit Reference Range Code Code System Flag LIPASE. 43 U/L L=16 H=77 COMPREHENSIVE METABOLIC PANE L (CMP) - Collect Date/Time: 12/25/2023 00:05 [facility] ID: [id number] [address] [place] [address], [address] LOINC: 61633-4 Test Value Unit Reference Range Code Code System Flag GLUCOSE 198 mg/dL L=70 H=116 2345-7 LOINC H BUN 33 mg/dL L=6 H=25 3094-0 LOINC H CREATININE 1.45 mg/dL L=0.67 H=1.17 2160-0 LOINC H SODIUM SERUM 135 mmol/L L=136 H=145 2951-2 LOINC L POTASSIUM SERUM 4.5 mmol/L L=3.4 H=5.2 2823-3 LOINC CHLORIDE SERUM 101 mmol/L L=96 H=110 2075-0 LOINC CARBON DIOXIDE (CO2) 29 mmol/L L=22 H=34 2028-9 LOINC ANION GAP 5.3 mmol/L 43042-5 LOINC CALCIUM SERUM 9.2 mg/dL L=8.2 H=10.2 68337-9 LOINC BILIRUBIN TOTAL 0.6 mg/dL L=0.0 H=1.3 1975-2 LOINC ALK. PHOS. 123 U/L L=46 H=116 6768-6 LOINC H SGOT (AST) 33 U/L L=15 H=37 1920-8 LOINC SGPT (ALT) 30 U/L L=12 H=78 1742-6 LOINC TOTAL PROTEIN 7.2 gm/dL L=6.0 H=8.0 2885-2 LOINC ALBUMIN 3.8 gm/dL L=3.4 H=5.0 1751-7 LOINC AGE 73 years eGFR (non-Afr.Amer.) 48 mL/min 36428-9 LOINC eGFR (Afr-Guatemalan) 58 mL/min 13071-4 LOINC CBC W/ DIFFERENTIAL* - Colle ct Date/Time: 12/25/2023 00:05 [facility] ID: [id number] [address] [place] [address], [address] LOINC: 41174-7 Test Value Unit Reference Range Code Code System Flag WBC 9.09 th/cmm L=5.00 H=10.00 6690-2 LOINC NEUT % 87.6 % L=40.0 H=80.0 H LYMPH % 5.6 % L=10.0 H=50.0 L MONO % 5.6 % L=2.0 H=12.0 16425-0 LOINC EOS % 0.0 % L=0.0 H=8.0 BASO % 0.2 % L=0.0 H=3.0 IG % 1.0 % L=0.0 H=1.1 2514-8 LOINC NRBC % 0.0 % L=0.0 H=0.0 79666-0 LOINC NEUT abs count 8.0 th/cmm L=1.6 H=8.4 751-8 LOINC LYMPH abs count 0.5 th/cmm L=1.5 H=4.0 731-0 LOINC L MONO abs count 0.5 th/cmm L=0.2 H=1.0 742-7 LOINC EOS abs count 0.0 th/cmm L=0.0 H=0.5 711-2 LOINC BASO abs count 0.0 th/cmm L=0.0 H=0.2 704-7 LOINC IG abs count 0.1 th/cmm L=0.0 H=0.1 11196-1 LOINC NRBC abs count 0.0 mil/cmm L=0.0 H=0.0 89124-9 LOINC RBC 4.96 mil/cmm L=4.30 H=6.20 789-8 LOINC HEMOGLOBIN 15.7 gm/dL L=13.0 H=17.0 718-7 LOINC HEMATOCRIT 46 % L=45 H=52 4544-3 LOINC MCV 92 fL L=82 H=92 787-2 LOINC MCH 31.7 pg L=27.0 H=31.0 785-6 LOINC H MCHC 34.4 % L=32.0 H=36.0 786-4 LOINC RDW-SD 40.3 fL L=39.0 H=49.0 788-0 LOINC PLATELET COUNT 128 th/cmm L=150 H=450 777-3 LOINC L Atyp lymphs 1+ Toxic gran 1+ Vaccuol neutr 1+ Smudge cells 1+ Giant plts present CT ABD PELVIS W IV CONTRAST ONLY - Completed: 12/25/2023 01:02 INC: [facility] [place], [place] [address] PACS LABOR DELIVERY SPECIALIST REPORT Patient Name: OVIDIO MINOR MRN: Sex: : Age: [id number] M [id number] Account: Accession: Admit: StayType: [id number] 12/24/2023 E/R Ordered: Order ID: Submitted: Ordering Provider: 12/25/2023 00:14 [id number] LEIGH MARKHAM Completed: Technologist: Resulted: 12/25/2023 01:02 AT 12/25/2023 18:20 Study Description: CT ABD PELVIS W IV CONTRAST ONLY Study Reason: RLQ Pain TECHNIQUE: Imaging Protocol: Axial computed tomography images with coronal and sagittal reformatted images were created and reviewed CONTRAST MATERIAL: Intravenous Omnipaque 100cc Oral: None COMPARISON: No exams were available for comparison FINDINGS: VISUALIZED LUNG BASES: No nodules nor pleural effusions evident ABDOMEN: There is no ascites. LIVER: There are no focal hepatic lesions evident. No dilated intrahepatic ducts. GALLBLADDER/BILIARY: Subtle suggestion of possible noncalcified gallstone. Gallbladder contracted. No edema. No pericholecystic fluid. CBD not dilated. PANCREAS: No evidence of pancreatic mass nor dilatation of the pancreatic duct. SPLEEN: Spleen is not enlarged. No obvious intrasplenic lesions. Splenic and portal veins are patent. ADRENALS: There are no significant adrenal masses. KIDNEYS: There are benign cortical cysts in both kidneys. The largest is in the inferior pole the right kidney it measures 4 x 4 cm. These simple cyst do not require further imaging follow-up. There are no solid renal masses. There are calculi evident in both kidneys. No hydronephrosis nor hydroureter. There are no calculi evident in the ureters nor within the nondistended urinary bladder. ABDOMINAL AORTA: Mild aneurysmal dilatation. Maximum diameter, however, is 1.4 cm.. LYMPH NODES: There is no retroperitoneal nor paraaortic adenopathy ABDOMINAL WALL/GI: No evidence of significant anterior abdominal wall hernia. No bowel obstruction. PELVIS: GI: No evidence of appendicitis.No evidence of sigmoid diverticulitis. LYMPH NODES: There is no intrapelvic nor inguinal adenopathy. REPRODUCTIVE: Prominent calcifications of the prostate gland noted. Prostate size is minimally prominent. There is a small amount of free fluid in the lower right pelvis adjacent to the rectum. URINARY BLADDER: No calculi nor obvious masses evident OSSEOUS: Previous lumbar surgery. No metallic hardware. Donor site evident in the right iliac bone. No acute fractures. No osseous lesions IMPRESSION: 1. Bilateral nonobstructive nephrolithiasis. 2. Possible subtle cholelithiasis. No evidence of acute cholecystitis nor dilatation of the biliary tree 3. There is a small amount of fluid in the dependent asked of the pelvis, possibly significant it as fluid in the pelvis is not a normal finding in a male patient. There are no adjacent diverticuli. Requires follow-up. 4. Other findings as above. Report Digitally Signed by Lamin Ariza on 12/25/2023 06:20 PM EST Social History Type Status Start Date End Date Code Code Syst em Smoking History Never smoker (Never Smoked) 184010547 SNOMED CT Sex Male Vital Signs Vital Sign Value Unit [place] Value [place] Unit Date/Time Recent/Initial? Code Code System Body Mass Index 22.04 kg/m2 12/25/2023 00:00 Initial 64692 -5 LOINC Systolic Blood Pressure 179 mm[Hg] 12/25/2023 03:45 Most Recent 8480- 6 LOINC Diastolic Blood Pressure 83 mm[Hg] 12/25/2023 03:45 Most Recent 8462- 4 LOINC Systolic Blood Pressure 205 mm[Hg] 12/25/2023 00:00 Initial 8480- 6 LOINC Diastolic Blood Pressure 92 mm[Hg] 12/25/2023 00:00 Initial 8462- 4 LOINC Body Surface Area 1.89 m2 12/25/2023 00:00 Initial 3140- 1 LOINC Height 180.340 0 cm 71.00 in 12/25/2023 00:00 Initial 8302- 2 LOINC O2 Saturation 98 % 2023 03:45 Most Recent 36716 -5 LOINC O2 Saturation 97 % 2023 00:00 Initial 56743 -5 LOINC Pulse 68.0 /min 12/25/2023 03:45 Most Recent 8867- 4 LOINC Pulse 79.0 /min 12/25/2023 00:00 Initial 8867- 4 LOINC Respiration 16 /min 12/25/19 03:45 Most Recent 9279- 1 LOINC Respiration 17 /min 12/25/19 00:00 Initial 9279- 1 LOINC Temperature 36.3 Sendy 97.3 F 12/25/19 03:45 [facility] 8310[facility] 36.2 Sendy 97.2 F 12/25/19 00:00 Initial 8310- 5 [facility] Weight 71.67 kg 158.00 lbs 12/25/2023 00:00 Initial 47068 -7 [facility] Medications Medication Start Date End Date Route Frequency Dose Code Code System Medication Instructions Home Meds Synthroid 100MCG Oral Tablet 08/27/2016 Unknown BY MOUTH Q7AM 100 MICROGRAM 843172 RxNorm TAKE 100 MICROGRAM BY MOUTH Q7AM Baclofen 10MG Oral Tablet 10/28/2017 Unknown ORAL NEEDED, DAILY 10 MILLIGRAMS 989201 RxNorm TAKE 10 MILLIGRAMS ORAL NEEDED, DAILY Metoprolol Succinate 50MG Oral Tablet, Extended Release 10/28/2017 Unknown ORAL DAILY 150 MILLIGRAMS 468594 RxNorm TAKE 150 MILLIGRAMS ORAL DAILY OMEPRAZOLE 20MG ORAL TABLET, DELAYE 10/28/2017 4 ORAL TWICE A DAY 20 MILLIGRAMS RxNorm TAKE 20 MILLIGRAMS ORAL TWICE A DAY VERAPAMIL ER 120 MG TABLET 10/28/2017 Unknown ORAL BEDTIME 120 MILLIGRAMS RxNorm TAKE 120 MILLIGRAMS ORAL BEDTIME predniSONE 20MG Oral Tablet 12/19/2023 4 ORAL DAILY 1 TABLET 789169 RxNorm TAKE 3 TABLETS DAILY FOR 3 [...] ic ROSIE Right inguinal hernia repair 01/20 [id number] X2010 12/29/2025 ProGri p [id number] AR Problems Problem Start Date Resolved Date Status Code Code System HIGH CHOLESTEROL 07/31/2022 resolved 58204533 SN OMED-CT GERD 07/31/2022 resolved 545576771 SNOMED-CT HYPOTHYROIDISM 07/31/2022 resolved 56429055 SNOM ED-CT BPH 07/31/2022 resolved 554857898 SNOMED-CT MIGRAINE 07/31/2022 resolved 91443646 SNOMED-CT AFIB 07/31/2022 resolved 62224300 SNOMED-CT THROMBOCYTOPENIA 07/31/2022 resolved 053957643 SN OMED-CT Allergies and Adverse Reactions Allergy Substance Reaction Severity Start Date Concern Status Code Code System AMBIEN Altered Mental Status (SNOMED-CT: 387891569) Active 737769 RxNorm AMITRIPTYLINE HCL Moderate Active 704 RxNor m Plan of Treatment Symptoms 01/02/2021 CT HEAD W/WO CONTRAST 02/24/2023 CT HEAD W/O CONTRAST 02/24/2023 X-RAY 12/11/2021 CT ABDOMEN/PELVIS W/O CONTRAST 09/15/20 21 X-RAY 08/28/2021 Encounters Encounter Diagnosis Start Date Code Code Sys tem Unilateral inguinal hernia, without obstruction or gangrene, not specified as recurrent 12/24/2023 SNO MED-CT Personal Care Team Section Performer Name Performer Role Active Date Inactive Da te
--- OUTSIDE RECORDS SUMMARY | 2024-07-24 17:15 | XMS_ITS ---
Author Organization Unknown Address [address] [place] [address] [phone] Phone Care Team Providers Care Foundation Relations Director Name Role Phone CODI Arias Attending Unavailable Results ANTI DNA (DOUBLE STRANDED) - Collect Date/Time: 10/13/2023 12:46 [facility] ID: [id number] [address] [place] [address], [id number] LOINC: 5130-0 Test Value Unit Reference Range Code Code System Flag dsDNA <22.0 <27.0 ANTI JAN PANEL* - Collect Da te/Time: 10/13/2023 12:46 [facility] ID: [id number] [address] [place] [address], [phone] LOINC: 21231-8 Test Value Unit Reference Range Code Code System Flag SS-A/Ro Ab, IgG, S 0.2 54967-9 LOINC SS-B/La Ab, IgG, S < 0.2 U 43874-9 LOINC Sm Ab, IgG, S < 0.2 U 20225-6 LOINC INDUSTRIAL GARAGE SERVICER Ab, IgG, S 0.2 U 70776-0 LOINC Scl 70 Ab, IgG, S < 0.2 U 92322-4 LOINC Magdalena 1 Ab, IgG, S < 0.2 U 19255-0 LOINC TSH THYROID STIMULATING HORM ONE* - Collect Date/Time: 10/13/2023 12:46 [facility] ID: [id number] [address] [place] [address], [address] LOINC: 3014-8 Test Value Unit Reference Range Code Code System Flag TSH 2.047 uIU/mL L=0.360 H=3.740 3014-8 LOINC LIPID PANEL* - Collect Date/ Time: 10/13/2023 12:46 [facility] ID: [id number] [address] [place], [place], [phone] LOINC: Test Value Unit Reference Range Code Code System Flag FASTING STATUS: NON FASTING CHOLESTEROL 163 mg/dL L=0 H=200 2093-3 LOINC TRIGLYCERIDES 76 mg/dL L=56 H=240 2571-8 LOINC HDL 60 mg/dL L=30 H=74 2085-9 LOINC non-HDL-C 103 mg/dL L=0 H=160 08200-4 LOINC LDL (CALC) 88 mg/dL L=0 H=130 92234-6 LOINC % HDL 36.8 % Chol/HDL Ratio 2.7 L=0.0 H=4.9 9830-1 LOINC CHD Relative Risk 0.5 x Avg L=0.0 H=1.0 LDL/HDL Ratio 1.5 L=0.0 H=3.5 13855-6 LOINC CHD Relative Risk. 0.4 x Avg L=0.0 H=1.0 BASIC METABOLIC PANEL (BMP) - Collect Date/Time: 10/13/2023 12:46 [facility] ID: [id number] [address] [place] [address], [address] LOINC: 20924-6 Test Value Unit Reference Range Code Code System Flag GLUCOSE 92 mg/dL L=70 H=116 2345-7 LOINC BUN 21 mg/dL L=6 H=25 3094-0 LOINC CREATININE 1.17 mg/dL L=0.67 H=1.17 2160-0 LOINC SODIUM SERUM 139 mmol/L L=136 H=145 2951-2 LOINC POTASSIUM SERUM 4.6 mmol/L L=3.4 H=5.2 2823-3 LOINC CHLORIDE SERUM 104 mmol/L L=96 H=110 2075-0 LOINC CARBON DIOXIDE (CO2) 28 mmol/L L=22 H=34 2028-9 LOINC ANION GAP 7.5 mmol/L 53198-9 [facility] CALCIUM SERUM 9.5 mg/dL L=8.2 H=10.2 13418-3 LOINC AGE 73 years eGFR (non-Afr.Amer.) 61 mL/min 81316-1 LOINC eGFR (Afr-Northern Irish) 74 mL/min 00814-3 [facility] Social History Type Status Start Date End Date Code Code Syst em Smoking History Never smoker (Never Smoked) 626589800 SNOMED CT Sex Male Medications Medication Start Date End Date Route Frequency Dose Code Code System Medication Instructions Home Meds Synthroid 100MCG Oral Tablet 08/27/2016 Unknown BY MOUTH Q7AM 100 MICROGRAM 313405 RxNorm TAKE 100 MICROGRAM BY MOUTH Q7AM Baclofen 10MG Oral Tablet 10/28/2017 Unknown ORAL NEEDED, DAILY 10 MILLIGRAMS 137004 RxNorm TAKE 10 MILLIGRAMS ORAL NEEDED, DAILY Metoprolol Succinate 50MG Oral Tablet, Extended Release 10/28/2017 Unknown ORAL DAILY 150 MILLIGRAMS 529463 RxNorm TAKE 150 MILLIGRAMS ORAL DAILY OMEPRAZOLE 20MG ORAL TABLET, DELAYE 10/28/2017 4 ORAL TWICE A DAY 20 MILLIGRAMS RxNorm TAKE 20 MILLIGRAMS ORAL TWICE A DAY VERAPAMIL ER 120 MG TABLET 10/28/2017 Unknown ORAL BEDTIME 120 MILLIGRAMS RxNorm TAKE 120 MILLIGRAMS ORAL BEDTIME predniSONE 20MG Oral Tablet 12/19/2023 4 ORAL DAILY 1 TABLET 553663 RxNorm TAKE 3 TABLETS DAILY FOR 3 [...] ic ROSIE Right inguinal hernia repair 01/20 [id number] X2010 12/29/2025 ProGri p [id number] AR Problems Problem Start Date Resolved Date Status Code Code System HIGH CHOLESTEROL 07/31/2022 resolved 86202260 SN OMED-CT GERD 07/31/2022 resolved 112879352 SNOMED-CT HYPOTHYROIDISM 07/31/2022 resolved 99150426 SNOM ED-CT BPH 07/31/2022 resolved 673827908 SNOMED-CT MIGRAINE 07/31/2022 resolved 58026726 SNOMED-CT AFIB 07/31/2022 resolved 48357421 SNOMED-CT THROMBOCYTOPENIA 07/31/2022 resolved 854552590 SN OMED-CT Allergies and Adverse Reactions Allergy Substance Reaction Severity Start Date Concern Status Code Code System AMBIEN Altered Mental Status (SNOMED-CT: 987816485) Active 547793 RxNorm AMITRIPTYLINE HCL Moderate Active 704 RxNor m Plan of Treatment Symptoms 01/02/2021 CT HEAD W/WO CONTRAST 02/24/2023 CT HEAD W/O CONTRAST 02/24/2023 X-RAY 12/11/2021 CT ABDOMEN/PELVIS W/O CONTRAST 09/15/20 21 X-RAY 08/28/2021 Encounters Encounter Diagnosis Start Date Code Code Sys tem Essential hypertension 10/13/2023 17057478 SNOME D-CT Personal Care Team Section Performer Name Performer Role Active Date Inactive Da te
--- OUTSIDE RECORDS SUMMARY | 2024-07-24 17:15 | XMS_ITS ---
Author Organization Unknown Address [address] [place] [address] [phone] Phone Care Team Providers Care Academic Coach Name Role Phone RUTHANN ODOM Registered Nurse Unavailable VERNELL CEBALLOS Attending Unavailable CODI Arias Primary Unavailable UNLISTED PROVIDER - REQUESTED Xhandoff Un available Social History Type Status Start Date End Date Code Code Syst em Smoking History Never smoker (Never Smoked) 809263929 SNOMED CT Sex Male Vital Signs Vital Sign Value Unit [place] Value [place] Unit Date/Time Recent/Initial? Code Code System Systolic Blood Pressure 171 mm[Hg] 10/31/2023 16:16 Initial 8480-6 [facility] Diastolic Blood Pressure 69 mm[Hg] 10/31/2023 16:16 Initial 8462-4 [facility] O2 Saturation 99 % 2022 16:16 Initial 18605- 5 [facility] Pulse 57.0 /min 10/31/2023 16:16 Initial 8867-4 [facility] Respiration 16 /min 10/31/20 16:16 Initial 9279-1 [facility] Temperature 36.3 Sendy 97.3 F 10/31/20 16:16 Initial 8310-5 [facility] Medications Medication Start Date End Date Route Frequency Dose Code Code System Medication Instructions Home Meds Synthroid 100MCG Oral Tablet 08/27/2016 Unknown BY MOUTH Q7AM 100 MICROGRAM 634754 RxNorm TAKE 100 MICROGRAM BY MOUTH Q7AM Baclofen 10MG Oral Tablet 10/28/2017 Unknown ORAL NEEDED, DAILY 10 MILLIGRAMS 437103 RxNorm TAKE 10 MILLIGRAMS ORAL NEEDED, DAILY Metoprolol Succinate 50MG Oral Tablet, Extended Release 10/28/2017 Unknown ORAL DAILY 150 MILLIGRAMS 069339 RxNorm TAKE 150 MILLIGRAMS ORAL DAILY OMEPRAZOLE 20MG ORAL TABLET, DELAYE 10/28/2017 4 ORAL TWICE A DAY 20 MILLIGRAMS RxNorm TAKE 20 MILLIGRAMS ORAL TWICE A DAY VERAPAMIL ER 120 MG TABLET 10/28/2017 Unknown ORAL BEDTIME 120 MILLIGRAMS RxNorm TAKE 120 MILLIGRAMS ORAL BEDTIME predniSONE 20MG Oral Tablet 12/19/2023 4 ORAL DAILY 1 TABLET 176003 RxNorm TAKE 3 TABLETS DAILY FOR 3 [...] ic ROSIE Right inguinal hernia repair 01/20 [id number] X2010 12/29/2025 ProGri p [id number] AR Problems Problem Start Date Resolved Date Status Code Code System HIGH CHOLESTEROL 07/31/2022 resolved 76800525 SN OMED-CT GERD 07/31/2022 resolved 450697731 SNOMED-CT HYPOTHYROIDISM 07/31/2022 resolved 70861624 SNOM ED-CT BPH 07/31/2022 resolved 505036514 SNOMED-CT MIGRAINE 07/31/2022 resolved 68320802 SNOMED-CT AFIB 07/31/2022 resolved 98857288 SNOMED-CT THROMBOCYTOPENIA 07/31/2022 resolved 451452625 SN OMED-CT Allergies and Adverse Reactions Allergy Substance Reaction Severity Start Date Concern Status Code Code System AMBIEN Altered Mental Status (SNOMED-CT: 096345991) Active 766683 RxNorm AMITRIPTYLINE HCL Moderate Active 704 RxNor m Plan of Treatment Symptoms 01/02/2021 CT HEAD W/WO CONTRAST 02/24/2023 CT HEAD W/O CONTRAST 02/24/2023 X-RAY 12/11/2021 CT ABDOMEN/PELVIS W/O CONTRAST 09/15/20 X-RAY 08/28/2021 Encounters Encounter Diagnosis Start Date Code Code Sys tem Partial thickness burn of skin of finger 10/31/2023 728621174 SNOMED-CT Personal Care Team Section Performer Name Performer Role Active Date Inactive Da te
--- OUTSIDE RECORDS SUMMARY | 2024-07-24 17:16 | XMS_ITS ---
Author Organization Unknown Address [address] [place] [address] [phone] Phone Care Team Providers Care Collar Separator Name Role Phone EDA Christopher Attending Clare Arias Primary Unavailable Social History Type Status Start Date End Date Code Code Syst em Smoking History Never smoker (Never Smoked) 501382351 SNOMED CT Sex Male Medications Medication Start Date End Date Route Frequency Dose Code Code System Medication Instructions Home Meds Synthroid 100MCG Oral Tablet 08/27/2016 Unknown BY MOUTH Q7AM 100 MICROGRAM 059252 RxNorm TAKE 100 MICROGRAM BY MOUTH Q7AM Baclofen 10MG Oral Tablet 10/28/2017 Unknown ORAL NEEDED, DAILY 10 MILLIGRAMS 652456 RxNorm TAKE 10 MILLIGRAMS ORAL NEEDED, DAILY Metoprolol Succinate 50MG Oral Tablet, Extended Release 10/28/2017 Unknown ORAL DAILY 150 MILLIGRAMS 173426 RxNorm TAKE 150 MILLIGRAMS ORAL DAILY OMEPRAZOLE 20MG ORAL TABLET, DELAYE 10/28/2017 4 ORAL TWICE A DAY 20 MILLIGRAMS RxNorm TAKE 20 MILLIGRAMS ORAL TWICE A DAY VERAPAMIL ER 120 MG TABLET 10/28/2017 Unknown ORAL BEDTIME 120 MILLIGRAMS RxNorm TAKE 120 MILLIGRAMS ORAL BEDTIME predniSONE 20MG Oral Tablet 12/19/2023 4 ORAL DAILY 1 TABLET 932553 RxNorm TAKE 3 TABLETS DAILY FOR 3 [...] ic ROSIE Right inguinal hernia repair 01/20 [id number] X2010 12/29/2025 ProGri p [id number] AR Problems Problem Start Date Resolved Date Status Code Code System HIGH CHOLESTEROL 07/31/2022 resolved 80196375 SN OMED-CT GERD 07/31/2022 resolved 249612851 SNOMED-CT HYPOTHYROIDISM 07/31/2022 resolved 12680927 SNOM ED-CT BPH 07/31/2022 resolved 579419119 SNOMED-CT MIGRAINE 07/31/2022 resolved 97503803 SNOMED-CT AFIB 07/31/2022 resolved 16406727 SNOMED-CT THROMBOCYTOPENIA 07/31/2022 resolved 390639790 SN OMED-CT Allergies and Adverse Reactions Allergy Substance Reaction Severity Start Date Concern Status Code Code System AMBIEN Altered Mental Status (SNOMED-CT: 107256842) Active 872487 RxNorm AMITRIPTYLINE HCL Moderate Active 704 RxNor m Plan of Treatment Symptoms 01/02/2021 CT HEAD W/WO CONTRAST 02/24/2023 CT HEAD W/O CONTRAST 02/24/2023 X-RAY 12/11/2021 CT ABDOMEN/PELVIS W/O CONTRAST 09/15/20 21 X-RAY 08/28/2021 Encounters Encounter Diagnosis Start Date Code Code Sys tem Inguinal hernia 12/29/2023 701644067 SNOMED-CT Personal Care Team Section Performer Name Performer Role Active Date Inactive Da te
--- OUTSIDE RECORDS SUMMARY | 2024-07-24 17:16 | XMS_ITS ---
Author Organization Unknown Address [address] [place] [address] [phone] Phone Care Team Providers Care Physicist [place] Name Role Phone EDA Christopher Attending Clare Arias Primary Unavailable Social History Type Status Start Date End Date Code Code Syst em Smoking History Never smoker (Never Smoked) 575487935 SNOMED CT Sex Male Medications Medication Start Date End Date Route Frequency Dose Code Code System Medication Instructions Home Meds Synthroid 100MCG Oral Tablet 08/27/2016 Unknown BY MOUTH Q7AM 100 MICROGRAM 088695 RxNorm TAKE 100 MICROGRAM BY MOUTH Q7AM Baclofen 10MG Oral Tablet 10/28/2017 Unknown ORAL NEEDED, DAILY 10 MILLIGRAMS 780105 RxNorm TAKE 10 MILLIGRAMS ORAL NEEDED, DAILY Metoprolol Succinate 50MG Oral Tablet, Extended Release 10/28/2017 Unknown ORAL DAILY 150 MILLIGRAMS 872770 RxNorm TAKE 150 MILLIGRAMS ORAL DAILY OMEPRAZOLE 20MG ORAL TABLET, DELAYE 10/28/2017 4 ORAL TWICE A DAY 20 MILLIGRAMS RxNorm TAKE 20 MILLIGRAMS ORAL TWICE A DAY VERAPAMIL ER 120 MG TABLET 10/28/2017 Unknown ORAL BEDTIME 120 MILLIGRAMS RxNorm TAKE 120 MILLIGRAMS ORAL BEDTIME predniSONE 20MG Oral Tablet 12/19/2023 4 ORAL DAILY 1 TABLET 110640 RxNorm TAKE 3 TABLETS DAILY FOR 3 [...] ic ROSIE Right inguinal hernia repair 01/20 [id number] X2010 12/29/2025 ProGri p [id number] AR Problems Problem Start Date Resolved Date Status Code Code System HIGH CHOLESTEROL 07/31/2022 resolved 56456977 SN OMED-CT GERD 07/31/2022 resolved 782745874 SNOMED-CT HYPOTHYROIDISM 07/31/2022 resolved [id number] SNOM ED-CT BPH 07/31/2022 resolved [id number] SNOMED-CT MIGRAINE 07/31/2022 resolved 05878411 SNOMED-CT AFIB 07/31/2022 resolved 97132591 SNOMED-CT THROMBOCYTOPENIA 07/31/2022 resolved [id number] SN OMED-CT Allergies and Adverse Reactions Allergy Substance Reaction Severity Start Date Concern Status Code Code System AMBIEN Altered Mental Status (SNOMED-CT: [id number]) Active 642111 RxNorm AMITRIPTYLINE HCL Moderate Active 704 RxNor m Plan of Treatment Symptoms 01/02/2021 CT HEAD W/WO CONTRAST 02/24/2023 CT HEAD W/O CONTRAST 02/24/2023 X-RAY 12/11/2021 CT ABDOMEN/PELVIS W/O CONTRAST 09/15/20 X-RAY 08/28/2021 Encounters Encounter Diagnosis Start Date Code Code Sys tem Pre-surgery evaluation 01/20/2024 [id number] SNOME D-CT Personal Care Team Section Performer Name Performer Role Active Date Inactive Da te
--- OUTSIDE RECORDS SUMMARY | 2024-07-24 17:16 | XMS_ITS ---
Author Organization Unknown Address [address] [place] [address] [phone] Phone Care Team Providers Care Fiber Optic Central Office Installer Name Role Phone RENAE FISHER Registered Nurse Unavailable PHOEBE GUZMAN Registered Nurse Unavailable ARLETTE CORTEZ Attending Unavailable CODI Arias Primary Unavailable UNLISTED PROVIDER - REQUESTED Xhandoff Un available Results LACTIC ACID - Collect Date/T kinza: 01/15/2024 22:05 [facility] ID: [id number] [address] [place] [id number], [address] LOINC: Test Value Unit Reference Range Code Code System Flag LACTIC ACID 1.7 mmol/L L=0.7 H=2.1 37283-0 LOINC BASIC METABOLIC PANEL (BMP) - Collect Date/Time: 01/15/2024 22:05 [facility] ID: [id number] [address] [place] [id number], [address] LOINC: 07453-4 Test Value Unit Reference Range Code Code System Flag GLUCOSE 152 mg/dL L=70 H=116 2345-7 LOINC H BUN 27 mg/dL L=6 H=25 3094-0 LOINC H CREATININE 1.33 mg/dL L=0.67 H=1.17 2160-0 LOINC H SODIUM SERUM 139 mmol/L L=136 H=145 2951-2 LOINC POTASSIUM SERUM 4.7 mmol/L L=3.4 H=5.2 2823-3 LOINC CHLORIDE SERUM 104 mmol/L L=96 H=110 2075-0 LOINC CARBON DIOXIDE (CO2) 31 mmol/L L=22 H=34 2027-9 LOINC ANION GAP 4.3 mmol/L 56838-6 LOINC CALCIUM SERUM 9.1 mg/dL L=8.2 H=10.2 98031-5 LOINC AGE 73 years eGFR (non-Afr.Amer.) 53 mL/min 42794-3 LOINC eGFR (Afr-Vincentian) 64 mL/min 84312-[address] ABD PELVIS W IV CONTRAST ONLY - Completed: 01/15/2024 23:16 LOINC: [facility] [place], [place] [address] PACS MERCHANDISE COLLECTOR REPORT Patient Name: OVIDIO MINOR MRN: Sex: : Age: [id number] M 1950 [id number] Account: Accession: Admit: StayType: [id number] 01/15/2024 E/R Ordered: Order ID: Submitted: Ordering Provider: 01/15/2024 22:08 [id number] DANA OATES Completed: Technologist: Resulted: 01/15/2024 23:16 AT 01/16/2024 13:40 Study Description: CT ABD PELVIS W IV CONTRAST ONLY Study Reason: Abdominal Pain TECHNIQUE: Imaging Protocol: Axial computed tomography images with coronal and sagittal reformatted images were created and reviewed CONTRAST MATERIAL: Intravenous Omnipaque 100cc Oral: None COMPARISON: Prior CT scan of 12/25/2023. FINDINGS: VISUALIZED LUNG BASES: There is mild pleural-based infiltrate in the posterior basal segment of the left lower lobe and medial basal segment of the right lower lobe. There are no pleural effusions. ABDOMEN: There is no ascites. The previously present small amount of free fluid in the lower right pelvis is no longer seen. LIVER: There are no focal hepatic lesions evident. No dilated intrahepatic ducts. GALLBLADDER/BILIARY: Subtle densities in the gallbladder noted which may be noncalcified gallstones or polyps. Gallbladder is not distended nor edematous. The CBD is not dilated. PANCREAS: No evidence of pancreatic mass nor dilatation of the pancreatic duct. SPLEEN: Spleen is not enlarged. No obvious intrasplenic lesions. Splenic and portal veins are patent. ADRENALS: There are no significant adrenal masses. KIDNEYS: There is a benign cyst in the inferior pole of the right kidney measuring 4 cm again noted, unchanged. Does not require further imaging workup. A smaller cyst is also again noted in the posterior cord opposite-left kidney, unchanged and not requiring workup. There are no solid renal masses. There is are calculi again noted in both kidneys, not obstructive. There is no hydronephrosis no hydroureter. Also no radiopaque calculi in the urinary bladder. ABDOMINAL AORTA: Abdominal aorta is not enlarged. LYMPH NODES: There is no retroperitoneal nor paraaortic adenopathy ABDOMINAL WALL/GI: No evidence of significant anterior abdominal wall hernia. No bowel obstruction. PELVIS: GI: The appendix is difficult to locate is a separate distinct structure. There is no evidence of acute appendicitis. No evidence of sigmoid diverticulitis. LYMPH NODES: There is no intrapelvic nor inguinal adenopathy. REPRODUCTIVE: Prostate contains calcifications. Prostate size is normal. Seminal vesicles unremarkable. URINARY BLADDER: No calculi nor obvious masses evident OSSEOUS: No significant osseous lesions and no acute fractures evident. Evidence of previous lumbar spine surgery with bone grafts/donor site right iliac bone. There is no radiopaque hardware. IMPRESSION: 1. There is subtle noncalcified densities in the gallbladder which may represent polyps or small calculi. Gallbladder is not distended nor obviously edematous. CBD is not dilated. Recommend follow-up gallbladder ultrasound for added specificity. 2. Bilateral nephrolithiasis, nonobstructive. Ureters are not dilated and there are no radiopaque calculi evident in the urinary bladder. 3. No evidence diverticulitis nor appendicitis. No free fluid in the abdomen and pelvis. No bowel obstruction. Report Digitally Signed by Lamin Ariza on 01/16/2024 01:40 PM EDT Social History Type Status Start Date End Date Code Code Syst em Smoking History Never smoker (Never Smoked) 082498915 SNOMED CT Sex Male Vital Signs Vital Sign Value Unit Mustang Value Mustang Unit Date/Time Recent/Initial? Code Code System Body Mass Index 23.43 kg/m2 01/15/2024 21:39 Initial 36393 -5 LOINC Systolic Blood Pressure 158 mm[Hg] 01/15/2024 23:56 Most Recent 8480- 6 LOINC Diastolic Blood Pressure 88 mm[Hg] 01/15/2024 23:56 Most Recent 8462- 4 LOINC Systolic Blood Pressure 165 mm[Hg] 01/15/2024 21:39 Initial 8480- 6 LOINC Diastolic Blood Pressure 86 mm[Hg] 01/15/2024 21:39 Initial 8462- 4 LOINC Body Surface Area 1.95 m2 01/15/2024 21:39 Initial 3140- 1 LOINC Height 180.340 0 cm 71.00 in 01/15/2024 21:39 Initial 8302- 2 INC O2 Saturation 98 % 2023 23:56 Most Recent 89362 -5 INC O2 Saturation 96 % 2023 21:39 Initial 21727 -5 LOINC Pulse 58.0 /min 01/15/2024 23:56 Most Recent 8867- 4 LOINC Pulse 62.0 /min 01/15/2024 21:39 Initial 8867- 4 LOINC Respiration 16 /min 01/15/20 24 23:56 Most Recent 9279- 1 LOINC Respiration 20 /min 01/15/20 24 21:39 Initial 9279- 1 LOINC Temperature 36.7 Sendy 98.1 F 01/15/20 24 21:39 Initial 8310- 5 LOINC Weight 76.20 kg 168.00 lbs 01/15/2024 21:39 Initial 11064 -7 [facility] Medications Medication Start Date End Date Route Frequency Dose Code Code System Medication Instructions Home Meds Synthroid 100MCG Oral Tablet 08/27/2016 Unknown BY MOUTH Q7AM 100 MICROGRAM 732100 RxNorm TAKE 100 MICROGRAM BY MOUTH Q7AM Baclofen 10MG Oral Tablet 10/28/2017 Unknown ORAL NEEDED, DAILY 10 MILLIGRAMS 255611 RxNorm TAKE 10 MILLIGRAMS ORAL NEEDED, DAILY Metoprolol Succinate 50MG Oral Tablet, Extended Release 10/28/2017 Unknown ORAL DAILY 150 MILLIGRAMS 850232 RxNorm TAKE 150 MILLIGRAMS ORAL DAILY OMEPRAZOLE 20MG ORAL TABLET, DELAYE 10/28/2017 4 ORAL TWICE A DAY 20 MILLIGRAMS RxNorm TAKE 20 MILLIGRAMS ORAL TWICE A DAY VERAPAMIL ER 120 MG TABLET 10/28/2017 Unknown ORAL BEDTIME 120 MILLIGRAMS RxNorm TAKE 120 MILLIGRAMS ORAL BEDTIME predniSONE 20MG Oral Tablet 12/19/2023 4 ORAL DAILY 1 TABLET 249446 RxNorm TAKE 3 TABLETS DAILY FOR 3 [...] ic ROSIE Right inguinal hernia repair 01/20 [id number] X2010 12/29/2025 ProGri p [id number] AR Problems Problem Start Date Resolved Date Status Code Code System HIGH CHOLESTEROL 07/31/2022 resolved 64159450 SN OMED-CT GERD 07/31/2022 resolved 575359058 SNOMED-CT HYPOTHYROIDISM 07/31/2022 resolved 24748015 SNOM ED-CT BPH 07/31/2022 resolved 250349831 SNOMED-CT MIGRAINE 07/31/2022 resolved 59487920 SNOMED-CT AFIB 07/31/2022 resolved 13581303 SNOMED-CT THROMBOCYTOPENIA 07/31/2022 resolved 549084976 SN OMED-CT Allergies and Adverse Reactions Allergy Substance Reaction Severity Start Date Concern Status Code Code System AMBIEN Altered Mental Status (SNOMED-CT: 852532622) Active 975960 RxNorm AMITRIPTYLINE HCL Moderate Active 704 RxNor m Plan of Treatment Symptoms 01/02/2021 CT HEAD W/WO CONTRAST 02/24/2023 CT HEAD W/O CONTRAST 02/24/2023 X-RAY 12/11/2021 CT ABDOMEN/PELVIS W/O CONTRAST 09/15/20 21 X-RAY 08/28/2021 Encounters Encounter Diagnosis Start Date Code Code Sys tem Unilateral inguinal hernia, without obstruction or gangrene, not specified as recurrent 01/15/2024 SNO MED-CT Personal Care Team Section Performer Name Performer Role Active Date Inactive Da te
--- OUTSIDE RECORDS SUMMARY | 2024-07-24 17:16 | XMS_ITS ---
Author Organization Unknown Address [address] [place] [address] [phone] Phone Care Team Providers Care Fixed Wing Pilot Name Role Phone IBRAHIMA Mills Attending Unavailable CODI Arias Primary Unavailable Social History Type Status Start Date End Date Code Code Syst em Smoking History Never smoker (Never Smoked) 740788147 SNOMED CT Sex Male Medications Medication Start Date End Date Route Frequency Dose Code Code System Medication Instructions Home Meds Synthroid 100MCG Oral Tablet 08/27/2016 Unknown BY MOUTH Q7AM 100 MICROGRAM 737136 RxNorm TAKE 100 MICROGRAM BY MOUTH Q7AM Baclofen 10MG Oral Tablet 10/28/2017 Unknown ORAL NEEDED, DAILY 10 MILLIGRAMS 471654 RxNorm TAKE 10 MILLIGRAMS ORAL NEEDED, DAILY Metoprolol Succinate 50MG Oral Tablet, Extended Release 10/28/2017 Unknown ORAL DAILY 150 MILLIGRAMS 774095 RxNorm TAKE 150 MILLIGRAMS ORAL DAILY OMEPRAZOLE 20MG ORAL TABLET, DELAYE 10/28/2017 4 ORAL TWICE A DAY 20 MILLIGRAMS RxNorm TAKE 20 MILLIGRAMS ORAL TWICE A DAY VERAPAMIL ER 120 MG TABLET 10/28/2017 Unknown ORAL BEDTIME 120 MILLIGRAMS RxNorm TAKE 120 MILLIGRAMS ORAL BEDTIME predniSONE 20MG Oral Tablet 12/19/2023 4 ORAL DAILY 1 TABLET 464572 RxNorm TAKE 3 TABLETS DAILY FOR 3 [...] ic ROSIE Right inguinal hernia repair 01/20 [id number] X2010 12/29/2025 ProGri p [id number] AR Problems Problem Start Date Resolved Date Status Code Code System HIGH CHOLESTEROL 07/31/2022 resolved 52690657 SN OMED-CT GERD 07/31/2022 resolved 582998107 SNOMED-CT HYPOTHYROIDISM 07/31/2022 resolved 62803224 SNOM ED-CT BPH 07/31/2022 resolved 296517758 SNOMED-CT MIGRAINE 07/31/2022 resolved 15716638 SNOMED-CT AFIB 07/31/2022 resolved 28166974 SNOMED-CT THROMBOCYTOPENIA 07/31/2022 resolved 093860862 SN OMED-CT Allergies and Adverse Reactions Allergy Substance Reaction Severity Start Date Concern Status Code Code System AMBIEN Altered Mental Status (SNOMED-CT: 132990710) Active 607485 RxNorm AMITRIPTYLINE HCL Moderate Active 704 RxNor m Plan of Treatment Symptoms 01/02/2021 CT HEAD W/WO CONTRAST 02/24/2023 CT HEAD W/O CONTRAST 02/24/2023 X-RAY 12/11/2021 CT ABDOMEN/PELVIS W/O CONTRAST 09/15/20 21 X-RAY 08/28/2021 Encounters Encounter Diagnosis Start Date Code Code Sys tem Trigger finger, left middle finger 12/27/2023 SNOMED-CT Personal Care Team Section Performer Name Performer Role Active Date Inactive Da te
--- OUTSIDE RECORDS SUMMARY | 2024-07-24 17:17 | XMS_ITS ---
Author Organization Unknown Address [address] [place] [address] [phone] Phone Care Team Providers Care Carpenter Streetcar Name Role Phone EDA shelton Social History Type Status Start Date End Date Code Code Syst em Smoking History Never smoker (Never Smoked) 677638305 SNOMED CT Sex Male Medications Medication Start Date End Date Route Frequency Dose Code Code System Medication Instructions Home Meds Synthroid 100MCG Oral Tablet 08/27/2016 Unknown BY MOUTH Q7AM 100 MICROGRAM 390282 RxNorm TAKE 100 MICROGRAM BY MOUTH Q7AM Baclofen 10MG Oral Tablet 10/28/2017 Unknown ORAL NEEDED, DAILY 10 MILLIGRAMS 373096 RxNorm TAKE 10 MILLIGRAMS ORAL NEEDED, DAILY Metoprolol Succinate 50MG Oral Tablet, Extended Release 10/28/2017 Unknown ORAL DAILY 150 MILLIGRAMS 113901 RxNorm TAKE 150 MILLIGRAMS ORAL DAILY OMEPRAZOLE 20MG ORAL TABLET, DELAYE 10/28/2017 4 ORAL TWICE A DAY 20 MILLIGRAMS RxNorm TAKE 20 MILLIGRAMS ORAL TWICE A DAY VERAPAMIL ER 120 MG TABLET 10/28/2017 Unknown ORAL BEDTIME 120 MILLIGRAMS RxNorm TAKE 120 MILLIGRAMS ORAL BEDTIME predniSONE 20MG Oral Tablet 12/19/2023 4 ORAL DAILY 1 TABLET 193027 RxNorm TAKE 3 TABLETS DAILY FOR 3 [...] Name Date Status Code Code Syste m Laparoscopy, Surgical; Repai r, Inguinal Hernia, Initial 01/21/2024 completed 74958 CPT Implants Implanted MARRY Status Assigning Authority Procedure Date Lot Number Serial Number Manufacturing Date Expiration Date Distinct ID Code Brand Name Model Number Extra-gyna ecological surgical mesh, composite- polymer 0110 8845 2151 3167 1726 [id number] 10 Active FDA Laparoscop ic ROSIE Right inguinal hernia repair 01/20 [id number] X2010 12/29/2025 ProGri p [id number] AR Problems Problem Start Date Resolved Date Status Code Code System HIGH CHOLESTEROL 07/31/2022 resolved 68502690 SN OMED-CT GERD 07/31/2022 resolved 101372584 SNOMED-CT HYPOTHYROIDISM 07/31/2022 resolved 51647073 SNOM ED-CT BPH 07/31/2022 resolved 594195165 SNOMED-CT MIGRAINE 07/31/2022 resolved 38905211 SNOMED-CT AFIB 07/31/2022 resolved 61245432 SNOMED-CT THROMBOCYTOPENIA 07/31/2022 resolved 049376720 SN OMED-CT Allergies and Adverse Reactions Allergy Substance Reaction Severity Start Date Concern Status Code Code System AMBIEN Altered Mental Status (SNOMED-CT: 826358661) Active 656314 RxNorm AMITRIPTYLINE HCL Moderate Active 704 RxNor m Plan of Treatment Symptoms 01/02/2021 CT HEAD W/WO CONTRAST 02/24/2023 CT HEAD W/O CONTRAST 02/24/2023 X-RAY 12/11/2021 CT ABDOMEN/PELVIS W/O CONTRAST 09/15/20 X-RAY 08/28/2021 Encounters Encounter Diagnosis Start Date Code Code Sys tem Unilateral inguinal hernia, without obstruction or gangrene, not specified as recurrent 01/21/2024 SNO MED-CT Personal Care Team Section Performer Name Performer Role Active Date Inactive Da te
--- OUTSIDE RECORDS SUMMARY | 2024-07-24 17:17 | XMS_ITS ---
Author Organization Unknown Address [address] [place] [address] [phone] Phone Care Team Providers Care Screw Supervisor Name Role Phone EDA Christopher Attending Clare J[facility] PROFESSIONAL ADVISOR Unavailable CODI Arias Primary Unavailable Social History Type Status Start Date End Date Code Code Syst em Smoking History Never smoker (Never Smoked) 174459009 SNOMED CT Sex Male Vital Signs Vital Sign Value Unit Trent Value Trent Unit Date/Time Recent/Initial? Code Code System Systolic Blood Pressure 128 mm[Hg] 01/21/2024 16:57 Initial 8480-6 [facility] Diastolic Blood Pressure 69 mm[Hg] 01/21/2024 16:57 Initial 8462-4 [facility] O2 Saturation 95 % 2023 16:57 Initial 17471- 5 [facility] Pulse 67.0 /min 01/21/2024 16:57 Initial 8867-4 [facility] Respiration 14 /min 01/21/20 24 16:57 Initial 9279-1 [facility] Temperature 36.2 Sendy 97.2 F 01/21/20 24 16:57 Initial 8310-5 [facility] Medications Medication Start Date End Date Route Frequency Dose Code Code System Medication Instructions Home Meds Synthroid 100MCG Oral Tablet 08/27/2016 Unknown BY MOUTH Q7AM 100 MICROGRAM 734182 RxNorm TAKE 100 MICROGRAM BY MOUTH Q7AM Baclofen 10MG Oral Tablet 10/28/2017 Unknown ORAL NEEDED, DAILY 10 MILLIGRAMS 292932 RxNorm TAKE 10 MILLIGRAMS ORAL NEEDED, DAILY Metoprolol Succinate 50MG Oral Tablet, Extended Release 10/28/2017 Unknown ORAL DAILY 150 MILLIGRAMS 145777 RxNorm TAKE 150 MILLIGRAMS ORAL DAILY OMEPRAZOLE 20MG ORAL TABLET, DELAYE 10/28/2017 4 ORAL TWICE A DAY 20 MILLIGRAMS RxNorm TAKE 20 MILLIGRAMS ORAL TWICE A DAY VERAPAMIL ER 120 MG TABLET 10/28/2017 Unknown ORAL BEDTIME 120 MILLIGRAMS RxNorm TAKE 120 MILLIGRAMS ORAL BEDTIME predniSONE 20MG Oral Tablet 12/19/2023 4 ORAL DAILY 1 TABLET 898937 RxNorm TAKE 3 TABLETS DAILY FOR 3 [...] Repai r, Inguinal Hernia, Initial 01/21/2024 completed 15051 CPT Anesthesia, Intraperitoneal Proc, Lower Abdomen, w/Laparoscopy; NOS 01/21/2024 completed 68698 CPT Implants Implanted MARRY Status Assigning Authority Procedure Date Lot Number Serial Number Manufacturing Date Expiration Date Distinct ID Code Brand Name Model Number Extra-gyna ecological surgical mesh, composite- polymer 0110 8845 2151 3167 1726 0228 [id number] 4X20 10 Active FDA Laparoscop ic ROSIE Right inguinal hernia repair 01/20 [id number] X2010 12/29/2025 ProGri p [id number] AR Problems Problem Start Date Resolved Date Status Code Code System HIGH CHOLESTEROL 07/31/2022 resolved 45336836 SN OMED-CT GERD 07/31/2022 resolved 395529948 SNOMED-CT HYPOTHYROIDISM 07/31/2022 resolved 74121440 SNOM ED-CT BPH 07/31/2022 resolved 201115261 SNOMED-CT MIGRAINE 07/31/2022 resolved 17230825 SNOMED-CT AFIB 07/31/2022 resolved 29009038 SNOMED-CT THROMBOCYTOPENIA 07/31/2022 resolved 108786987 SN OMED-CT Allergies and Adverse Reactions Allergy Substance Reaction Severity Start Date Concern Status Code Code System AMBIEN Altered Mental Status (SNOMED-CT: 523064901) Active 720837 RxNorm AMITRIPTYLINE HCL Moderate Active 704 RxNor m Plan of Treatment Symptoms 01/02/2021 CT HEAD W/WO CONTRAST 02/24/2023 CT HEAD W/O CONTRAST 02/24/2023 X-RAY 12/11/2021 CT ABDOMEN/PELVIS W/O CONTRAST 09/15/20 X-RAY 08/28/2021 Future Order Description Future Order Date Futu re Order Loinc: BASIC METABOLIC PANEL (BMP) 01/21/2024 ANGELO NC: 91745-9 CBC W/ DIFFERENTIAL* 01/21/2024 LOINC: 243 61-8 Encounters Encounter Diagnosis Start Date Code Code Sys tem Unilateral inguinal hernia, with obstruction, without gangrene, not specified as recurrent 01/21/2024 SNO MED-CT Personal Care Team Section Performer Name Performer Role Active Date Inactive Da te
--- OUTSIDE RECORDS SUMMARY | 2024-07-24 17:18 | XMS_ITS | Encounter Summary ---
Author Organization [facility] [place] [address] Care Team Providers Care Citrix Administrator Name Role Phone Radha Mckeon MD Primary Care Provider [phone] Encounter Details Date Type Department Care Team (Latest Contact Info) Description 07/19/2024 11:00 AM EDT - 07/19/2024 11:59 PM EDT Hospital Encounter [place] [phone] Arrived Discharge Disposition: Home Social History Tobacco Use Types Packs/Day Years Used Date Smoking Tobacco: Former Cigarettes 2 16 0 11/09/1966 - 11/09/1982 Smokeless Tobacco: Never Alcohol Use Standard Drinks/Week Comments No 0 (1 standard drink = 0.6 oz pur e alcohol) Overall Financial Resource Strain (CARDIA) [place] r Date Recorded How hard is it for you to pa y for the very basics like food, housing, medical care, and heating? Somewhat hard 04/01/2022 Hunger Vital Sign Answer Date Recorded Within the past 12 months, y ou worried that your food would run out before you got the money to buy more. Never true 04/01/20 22 Ran Out of Food in the Last Year Not on file 04/01/2022 PRAPARE - Transportation Answer Date Re corded In the past 12 months, has l ack of transportation kept you from medical appointments or from getting medications? No 04/01/2022 Lack of Transportation (Non-Medical) Not on file 04/01/2022 Housing Stability Vital Sign Answer Pankaj e Recorded In the last 12 months, was t here a time when you were not able to pay the mortgage or rent on time? No 04/01/2022 Number of Places Lived in the Last Year Not on f ile 04/01/2022 In the last 12 months, was t here a time when you did not have a steady place to sleep or slept in a skilled nursing (including now)? No 04/01/2022 DH IPV Inpatient Questions Answer Date Recorded Does Anyone Try to Keep You From Having Contact with Others or Doing Things Outside Your Home? no 11/29/2023 Feels Threatened by Someone no 11/02 Feels Unsafe at Home or Work/School no 11/29/2023 Physical Signs of Abuse Present no 11/29/2023 Sex and Gender Information Value Date Recorded Sex Assigned at Not on file Gender Identity Not on file Sexual Orientation Not on file documented as of this encounter Medications at Time of Discharge Medication Sig Dispensed Refills Start Date End Date metoprolol succinate XL (Toprol-XL) 100 mg ER 24 hr tabletIndications:Paro xysmal atrial fibrillation Take 1 tablet by mouth daily. 90 tablet 3 04/27/2024 valACYclovir (Valtrex) 500 mg tablet 500 mg. prn 12/24/2021 Ubrelvy 100 mg tablet 07/09/2023 SUMAtriptan (IMITREX) 20 mg/actuation [place], Non-Aerosol 1 spray by Nasal route as needed. multivitamin (THERAGRAN) Tablet Take 1 tablet by mouth daily. finasteride (Proscar) 5 mg tablet Take 5 mg by mouth daily. 04/02/2023 benzonatate (Tessalon) 200 mg capsule Take 200 mg by mouth 3 times daily as needed for Cough. 01/05/2023 acetaminophen (Tylenol) 500 mg tablet as needed. 01/16/2017 magnesium hydroxide (MILK OF MAGNESIA ORAL) Take by mouth as needed. Xarelto 20 mg Tablet Take 1 tablet by mouth daily. 05/24/2022 oxyCODONE (Roxicodone) 5 mg Tablet Take 1-2 tablets by mouth every 4 hours as needed for Pain. 42 tablet 05/20/2022 zonisamide (ZONEGRAN) 50 mg Capsule TAKE 1 CAPSULE BY MOUTH EVERY NIGHT AT BEDTIME 06/16/2021 Emgality Pen 120 mg/mL Pen Injector INJECT 1 PEN SUBCUTANEOUSLY ONCE MONTHLY 06/09/2021 lidocaine-prilocaine (EMLA) Cream as needed. 09/16/2020 polyethylene glycoL (Miralax) 17 gram Powder in Packet Take 17 g by mouth as needed. 11/17/2019 senna-docusate (Pericolace) 8.6-50 mg Tablet Take 2 tablets by mouth as needed. 11/17/2019 acyclovir (ZOVIRAX) 200 mg CapsuleIndications:prn 1 capsule as needed. Indications: prn diclofenac (VOLTAREN) 1 % Gel Apply topically Once daily as needed. tamsulosin (Flomax) 0.4 mg Capsule TK 1 C PO QD 04/23/2020 fluticasone propionate (FLONASE) 50 mcg/actuation [place], Suspension INSTILL 1SPRAY IN EACH NOSTRIL TWICE A DAY 02/27/2020 lamoTRIgine (LAMICTAL) 25 mg Tablet Take 50 mg by mouth 2 times daily. 10/10/2019 SUMAtriptan (IMITREX) 100 mg Tablet Take 100 mg by mouth as needed for Migraine. Initial dose: 25 mg, 50 mg, or 100 mg (take with fluids). May repeat dose after 2 hours. Max daily dose: 200 mg Triamcinolone Acetonide 0.025 % Lotion Apply topically as needed. BOTOX 200 unit Recon Soln Inject 200 Units as directed Q 3 Months. 09/14/2017 verapamil (CALAN-SR) 120 mg Tablet Sustained Release Take 1 tablet by mouth daily. 90 tablet 3 07/27/2017 levothyroxine (Synthroid) 100 mcg Tablet Take 100 mcg by mouth daily. baclofen (LIORESAL) 10 mg tablet Take 10 mg by mouth nightly as needed. simvastatin (ZOCOR) 10 mg tablet Take 10 mg by mouth nightly. documented as of this encounter Plan of Treatment Upcoming Encounters Date Type Department Care Team (Late st Contact Info) Description 08/18/2024 11:00 AM EDT Hospital Encounter [place] [phone] Arrived 02/22/2025 1:30 PM EDT Appointment Hematology and Oncology at [place] [phone] 02/22/2025 2:30 PM EDT Office Visit Hematology [place] [phone] Ellis Childers MD [facility] [address] [place] [address] Felicita Landa APRN [facility] [address] [place] [address] documented as of this encounter Procedures Procedure Name Priority Date/Time Associated Diagnosis Comments PRG ILR INTERROGATION REMOTE UP TO 30 DAYS Routine 06/30/2024 2:05 AM EDT documented in this encounter Results * Cardiac Device Check - Remote (06/30/2024 2:05 AM EDT) Anatomical Region Laterality Modality Other 06/30/2024 2:05 AM EDT Sera Arteaga MD IMPLANTABLE CARDIAC DEVICE documented in this encounter Visit Diagnoses Not on filedocumented in this encounter Care Teams Citrix Administrator Relationship Specialty Start Date End Date Radha Mckeno MD [address] [place] [address] PCP - General 09/23/10 documented as of this encounter
--- OUTSIDE RECORDS SUMMARY | 2024-07-24 17:18 | XMS_ITS | Encounter Summary ---
Author Organization [facility] [place] [address] Care Team Providers Care Vp Digital Marketing Social Media And Crm Name Role Phone Radha Mckeon MD Primary Care Provider [phone] Encounter Details Date Type Department Care Team (Late st Contact Info) Description 05/29/2024 Interpretation Only [facility] in [address] [address] Alfred Norman, DO [address] [place], [place] [id number] Social History Tobacco Use Types Packs/Day Years [...] place to sleep or slept in a halfway (including now)? No 04/01/2022 IPV Inpatient Questions Answer Date Recorded Does [...] on file documented as of this encounter Plan of Treatment Upcoming Encounters Date Type Department Care Team (Late st Contact Info) Description 08/18/2024 11:00 AM EDT Hospital Encounter Non-[place]vasive [place] [phone] Arrived 02/22/2025 1:30 PM EDT Appointment [place] [phone] 02/22/2025 2:30 PM EDT Office Visit [place]ology [place] [address] Ellis Childers MD [facility] [address] HEMATOLOGY [place] [address] Felicita Landa APRN [facility] [address] HEMATOLOGY [place] [address] documented as of this encounter Procedures Procedure Name Priority Date/Time Associated Diagnosis Comments XR PELVIS AND LAT HIP LEFT STAT 05/29/2024 5:37 PM EDT documented in this encounter Results * XR Pelvis & Lat Hip Left (Generic) (05/29/2024 5:37 PM EDT) PT CLASS E RAD ADMITDTTM [id number] RAD PT RAD INFO [id number]^NORMAN^R SOFI^J RAD EXAM DESC XRPELHIPLL^XR PELVIS AND HIP LAT LT^RIS [facility] WORKSTATION ID [id number] [facility] Anatomical Region Laterality Modality Pelvis, Hip Left Radiographic Nano ging Impressions 05/29/2024 6:17 PM EDT No acute fracture or dislocation. Ancillary findings as above. Thank you for letting us participate in the care of this patient. ??If you are a health care provider and have any questions regarding this report, please contact the number below. ??For patients who have questions please contact the health cardiac care nurse that requested your imaging first. ? Narrative 05/29/2024 6:17 PM EDT EXAMINATION: XR PELVIS AND HIP LAT LT CLINICAL HISTORY: ??Reason for Hip/Pelv: ??Pain ??Add'l Info: ??direct blow four days ago TECHNIQUE: Single frontal view of the pelvis. Single lateral view of the left hip. 2 images. COMPARISON: CT abdomen pelvis 01/15/2024. FINDINGS: Degenerative changes in lower lumbar spine. Osseous fusion of L5 and S1. Degenerative changes in the bilateral SI joints. Symmetric SI joints. No diastasis of SI joints or pubic symphysis. Moderate bilateral hip osteoarthropathy. No acute fracture or dislocation. Nonobstructive bowel gas pattern. No abnormal soft tissue gas or radiopaque foreign body. Procedure Note Elvia Stock MD - 05/29/2024 EXAMINATION: XR PELVIS AND HIP LAT LT CLINICAL HISTORY: Reason for Hip/Pelv: Pain Add'l Info: direct blowfour days ago TECHNIQUE: Single frontal view of the pelvis. Single lateral view of the left hip.2 images. COMPARISON: CT abdomen pelvis 01/15/2024. FINDINGS: Degenerative changes in lower lumbar spine. Osseous fusion of L5 and S1. Degenerative changes in the bilateral SI joints. Symmetric SI joints. No diastasis of SI joints or pubic symphysis. Moderate bilateral hip osteoarthropathy. No acute fracture or dislocation. Nonobstructive bowelgas pattern. No abnormal soft tissue gas or radiopaque foreign body. IMPRESSION No acute fracture or dislocation. Ancillary findings as above. Thank you for letting us participate in the care of this patient. If youare a health care provider and have any questions regarding this report,please contact the number below. For patients who have questions please contactthe health cardiac care nurse that requested your imaging first. Alfred Norman DO IMJaxon DX ORDERABLES documented in this encounter Visit Diagnoses Not on filedocumented in this encounter Care Teams Vp Digital Marketing Social Media And Crm Relationship Specialty Start Date End Date Radha Mckeon MD [address] [place] [address] PCP - General 09/23/10 documented as of this encounter
--- OUTSIDE RECORDS SUMMARY | 2024-07-24 17:18 | XMS_ITS | Encounter Summary ---
Author Organization [facility] [place] [address] Care Team Providers Care Power Lineworker Name Role Phone Radha Mckeon MD Primary Care Provider [phone] Encounter Details Date Type Department Care Team (Late st Contact Info) Description 07/20/2024 2:30 PM EDT [place] [address] Joaquin Metzger, [facility] [place] [address] Neuropathic pain of both feet; Onychodystrophy; Pain in toe of left foot; Pain in toe of right foot Social History Tobacco Use Types Packs/Day Years Used Date Smoking Tobacco: Former Cigarettes 2 16 0 11/09/1966 - 11/09/1982 Smokeless Tobacco: Never Alcohol Use Standard Drinks/Week Comments No 0 (1 standard drink = 0.6 oz pur e alcohol) Overall Financial Resource Strain (CARDIA) Answe r Date Recorded How hard is it [...] place to sleep or slept in a detention (including now)? No 04/01/2022 DH IPV Inpatient [...] on file documented as of this encounter Progress Notes * Joaquin Metzger DPM - 07/20/2024 2:30 PM EDT Outpatient Podiatry Clinic Note Name: Malik Machado Age:74 y.o. MR#: [id number] Date of Service: 07/20/2024 SUBJECTIVE: Malik Machado is a very pleasant 74 y.o. male who presents to the clinic today for treatment of recurring pain in multiple toes both feet, 2nd right toenail most painful today, secondaryto chronically dystrophic ingrown toenails. I have seen him many times in the past at a prior office location and have been taking care of him with this problem previously. I also performed matrixectomy type procedures for him in the past with complete removal of the right hallux nail plate which has done very well. 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 He needs preventative care to prevent significant injury to his skin. 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 Allergies Allergen Reactions Zolpidem Other reaction(s): bad dreams Other reaction(s): bad dreams Other reaction(s): bad dreams Amitriptyline Palpitations and Other (See Comments) Adverse drug effect Other reaction(s): heart races, Other (See Comment) Atorvastatin Other (See Comments) Adverse effect caused liver enzyme abnormalitiies Other reaction(s): Other (See Comments) Adverse effect caused liver enzyme abnormalitiies Other reaction(s): Other (See Comment) Flecainide Other (See Comments) Adverse effect caused AR and QRS prolongation Other reaction(s): Other (See Comments) Adverse effect caused AR and QRS prolongation Other reaction(s): Other (See Comment) Past Medical History: Diagnosis Date Antiplatelet or antithrombotic long-term use apixaban Chronic back pain greater than 3 months duration Chronic pain spine, has had 3 spine surgeries High blood pressure controlled with medication Hypothyroid treated with medication Irregular heart beat afib Lightheadedness 12/24/2016 intermediate current use of opiate analgesic oxycodone, prescribed by PCP Migraine Postoperative anemia due to acute blood loss 11/17/2019 Thrombocytopenia - chronic 12/16/2012 Thrombocytopenia - chronic 12/16/2012 Social History Socioeconomic History Marital status: Spouse name: Not on file Number of children: Not on file Years of education: Not on file Highest education level: Not on file Occupational History Not on file Tobacco Use Smoking status: Former Current packs/day: 0.00 Average packs/day: 2.0 packs/day for 16.0 years (32.0 ttl pk-yrs) Types: Cigarettes Start date: 11/09/1966 Quit date: 11/09/1982 Years since quittin.7 Smokeless tobacco: Never Vaping Use Vaping status: Never Used Substance and Sexual Activity Alcohol use: No Drug use: Never Sexual activity: Yes Other Topics Concern Not on file Social History Narrative Not on file Social Determinants of Health Financial Resource Strain: Medium Risk (04/01/2022) Overall Financial Resource Strain (CARDIA) Difficulty of Paying Living Expenses: Somewhat hard Food Insecurity: Unknown (04/01/2022) Hunger Vital Sign Worried About Running Out of Food in the Last Year: Never true Ran Out of Food in the Last Year: Not on file Transportation Needs: Unknown (04/01/2022) PRAPARE - Transportation Lack of Transportation (Medical): No Lack of Transportation (Non-Medical): Not on file Physical Activity: Not on file Intimate Partner Violence: Not At Risk (11/29/2023) DH IPV Inpatient Questions Prevent Contact with Others: no Feels Threatened by Someone: no Feels Unsafe at Home: no Physical Signs of Abuse Present: no Housing Stability: Unknown (04/01/2022) Housing Stability Vital Sign Unable to Pay for Housing in the Last Year: No Number of Places Lived in the Last Year: Not on file Unstable Housing in the Last Year: No Family History Problem Relation Age of Onset Heart Disease Mother Heart Disease Father Cancer Brother 58 panceratic Current Outpatient Medications on File Prior to Visit Medication Sig Dispense Refill metoprolol succinate XL (Toprol-XL) 100 mg ER 24 hr tablet Take 1 tablet by mouth daily. 90 tablet 3 valACYclovir (Valtrex) 500 mg tablet 500 mg. prn Ubrelvy 100 mg tablet SUMAtriptan (IMITREX) 20 mg/actuation [place], Non-Aerosol 1 spray by Nasal route as needed. multivitamin (THERAGRAN) Tablet Take 1 tablet by mouth daily. finasteride (Proscar) 5 mg tablet Take 5 mg by mouth daily. benzonatate (Tessalon) 200 mg capsule Take 200 mg by mouth 3 times daily as needed for Cough. acetaminophen (Tylenol) 500 mg tablet as needed. magnesium hydroxide (MILK OF MAGNESIA ORAL) Take by mouth as needed. Xarelto 20 mg Tablet Take 1 tablet by mouth daily. oxyCODONE (Roxicodone) 5 mg Tablet Take 1-2 tablets by mouth every 4 hours as needed for Pain. (Patient taking differently: Take 5-10 mg by mouth as needed for Pain.) 42 tablet 0 zonisamide (ZONEGRAN) 50 mg Capsule TAKE 1 CAPSULE BY MOUTH EVERY NIGHT AT BEDTIME Emgality Pen 120 mg/mL Pen Injector INJECT 1 PEN SUBCUTANEOUSLY ONCE MONTHLY lidocaine-prilocaine (EMLA) Cream as needed. polyethylene glycoL (Miralax) 17 gram Powder in Packet Take 17 g by mouth as needed. senna-docusate (Pericolace) 8.6-50 mg Tablet Take 2 tablets by mouth as needed. acyclovir (ZOVIRAX) 200 mg Capsule 1 capsule as needed. Indications: prn diclofenac (VOLTAREN) 1 % Gel Apply topically Once daily as needed. tamsulosin (Flomax) 0.4 mg Capsule TK 1 C PO QD fluticasone propionate (FLONASE) 50 mcg/actuation [place], Suspension INSTILL 1SPRAY IN EACH NOSTRIL TWICE A DAY lamoTRIgine (LAMICTAL) 25 mg Tablet Take 50 mg by mouth 2 times daily. SUMAtriptan (IMITREX) 100 mg Tablet Take 100 mg by mouth as needed for Migraine. Initial dose: 25 mg, 50 mg, or 100 mg (take with fluids). May repeat dose after 2 hours. Max daily dose: 200 mg Triamcinolone Acetonide 0.025 % Lotion Apply topically as needed. BOTOX 200 unit Recon Soln Inject 200 Units as directed Q 3 Months. verapamil (CALAN-SR) 120 mg Tablet Sustained Release Take 1 tablet by mouth daily. (Patient taking differently: Take 120 mg by mouth nightly.) 90 tablet 3 levothyroxine (Synthroid) 100 mcg Tablet Take 100 mcg by mouth daily. baclofen (LIORESAL) 10 mg tablet Take 10 mg by mouth nightly as needed. simvastatin (ZOCOR) 10 mg tablet Take 10 mg by mouth nightly. No current facility-administered medications on file prior to visit. BP: 186/105 BP site: BP position: BP cuff size: Pulse: 60 Temp: (96.9 ??F) Temp source: Weight: Height: HC: Resp: 18 SpO2: 100% on room air ROS: Per HPI EXAMINATION: GEN: Patient is in no acute distress, alert, awake. All toenails both feet are thickened and dystrophic. The left hallux nail plate is ingrown on the distal medial nail fold region. This is a thickened dystrophic nail plate as well. He has very incurvated nail plates on the fifth toes bilateral feet without signs of infection. These are not infectedbut they are ingrown and painful. The areas are hypersensitive secondary to his neuropathy. He has palpable pedal pulses bilaterally with no significant evidence of arterial insufficiency. Neurologicexam reveals hypersensitivity to light touch to multiple areas of both feet. Musculoskeletal exam is unremarkable at this time. ASSESSMENT: Neuropathic pain affecting both lower extremities, chronic Onychodystrophy multiple toenails both feet Ingrowing toenails bilateral feet PLAN: No significant changes noted from last evaluation for me. A foot exam was performed and we discussed different treatment options today. I was able to again very carefully examine his feet and then debride and trim out his nails, 2nd right toe, left hallux and 5th toenails both feet, very carefully trying to avoid stimulating hypersensitive nerves. This was done using sterile nail nipper and rotary bur. He tolerated this procedure very well which he has done in the past with this treatment. I will be happy to take care of him on a regular basis going forward as he cannot do this safely or effectively himself at this time in his life. It has been my pleasure seeing Malik today. FOLLOW UP: isael Metzger DPM, MS [facility] [employer], [facility] documented in this encounter Plan of Treatment Upcoming Encounters Date Type Department Care Team (Late st Contact Info) Description 08/18/2024 11:00 AM EDT Hospital Encounter Non-Invasive Cardiology Lab [place] [phone] Arrived 02/22/2025 1:30 PM EDT Appointment Hematology [place] [phone] 02/22/2025 2:30 PM EDT Office Visit Hematology and Oncology at [place] [phone] Ellis Childers MD [facility] [address] [place] [address] Felicita Landa APRN [facility] [place] [address] documented as of this encounter Visit Diagnoses Diagnosis Neuropathic pain of both feet Onychodystrophy Other specified disease of nail Pain in toe of left foot Pain in limb Pain in toe of right foot Pain in limb documented in this encounter Care Teams Power Lineworker Relationship Specialty Start Date End Date Radha Mckeon MD [address] [place] [address] PCP - General 09/23/10 documented as of this encounter
--- OUTSIDE RECORDS SUMMARY | 2024-07-24 17:18 | XMS_ITS | Continuity of Care Document ---
Author Organization [facility], [facility] Address [address] [place] [address] Care Team Providers Care Patient Registration Clerk Name Role Phone CODI CINDI Primary Care Provider [facility] Hematology/Oncology VINNY ALEXANDRA Orthopedic Surgeon CRISTIANO WORKMAN Neurologist [facility] PAIN MANAGEMENT Pain Management MANUEL CONDE Box Chipper SANJUANA ACEVEDO Manufacturing Engineer Autom[employer] CATARINA ZAFAR Paper Pattern Inspector JONATHON WILCOX Urologist [facility] Tmh Teacher [phone] JANAY BORJA Dentist Assessment No assessment recorded. Plan of Treatment Reminders Order Date Submit Date Provider Last Modified By Organization Details Last Modified Time Details Appointments Medicare Annual Wellness 40 2023 02:20P M Not available Not available Not available Lab None recorded. Referral None recorded. Procedures None recorded. Surgeries None recorded. Imaging None recorded. Medication Orders Xarelto 20 mg tablet 2023 024 [facility], [address] [place] [address], [address], [place], [address], 05/16/2024 16:23:10 finasteri de 5 mg tablet 2023 024 [id number], [address], [place], [place], [id number], 05/16/2024 16:14:55 Patient TargetsNo targets recorded. Patient InstructionsNo instructions recorded. Reason for Referral General Surgeon Referral for Tenderness of right lower quadrant of abdomen Referring Physician: Cindi Kincaid [facility], Encounter Date: 12/16/2023 Pain Management Referral for Pain of right knee joint Previously seen by Dr. Robles at [facility] - they recommended a geniculate nerve block - ready to do Referring Physician: Cindi Kincaid [facility], Encounter Date: 02/10/2024 Paper Pattern Inspector Referral fo r Bleeding from nose Referring Physician: Cindi Kincaid [facility], Encounter Date: 02/22/2024 Results Created Date Observation Date Name Description Value Unit Range Abnormal Flag Note LastModifiedBy Organization Detail LastModifiedTime 05/18/20 24 01/06/2024 MRI, brain + brain stem, w/wo contr ast No observ ation record ed. [facility] [address] , [place], [address], 05/18/2024 10:57:00 05/29/20 24 05/29/2024 xr pelvi s and hip lat lt* [facility] RAD[facility] OGY Doug Champagne [address] RADIOL OGY PACS TRANSC RIPTIO N REPORT _ Mark Anthony t Name: OVIDIO MOHAN MRN: Sex: : Age: [id number] M [birth year] [age] Accoun t: Access ion: Admit: StayTy pe: [id number] E Ordere d: Order ID: Submit ronaldo: Orderphu norton Provid er: 2023 17:27 [id number] Teresita KONG ronaldo: Techno logist : Result ed: 2023 17:41 KVK 2023 18:17 _ EXAMIN ATION: XR PELVIS AND HIP LAT LT CLINIC AL HISTOR Y: Reason for Hip/Pe lv: Pain Add'l Info: direct blow four days ago TECHNI QUE: Single fronta l view of the pelvis . Single latera l view of the left hip. 2 images . COMPAR DION: CT abdome n pelvis 024. FINDIN GS: Degene rative change s in lower lumbar spine. Osseou s fusion of L5 and S1. Degene rative change s in the bilate ral SI joints . Symmet nila SI joints . No diasta sis of SI joints or pubic symphy sis. Modera te bilate ral hip osteoa rthrop athy. No acute fractu re or disloc ation. Nonobs tructi ve bowel gas patter n. No abnorm al soft tissue gas or radiop aque foreig n body. IMPRES TOD: No acute fractu re or disloc ation. Ancill beau findin gs as above. Thank you for [facility] us partic ipate in the care of this patien t. If you are a health care [facility] and have any questi ons regard ing this report , please contac t the number below. For patien ts who have questi ons please contac t the health care profes sional that reques ronaldo your imagin g first. Electr onical ly signed by: Verna Stock MD Radiol justocarol Segundo patric ([phone]), at 6:17 PM [facility] (Lab) [address] [place] [address], [address], 05/30/2024 15:51:40 07/17/20 24 01/31/2019 MRI, lumba r spine No observ ation record ed. Not Available 07/17 19:52:25 07/17/20 24 05/14/2023 XR, chest No observ ation record ed. Not Available 07/17 19:52:28 07/17/20 24 05/13/2023 CT, head or brain No observ ation record ed. Not Available 07/17 19:52:29 07/17/20 24 06/07/2020 XR, chest No observ ation record ed. Not Available 07/17 19:52:30 07/17/20 24 11/29/2020 MRI, neck No observ ation record ed. Not Available 07/17 19:52:31 07/17/20 24 04/19/2020 imagi ng/di agnos tic resul t No observ ation record ed. Not Available 07/17 19:52:46 07/17/20 24 01/30/2021 imagi ng/di agnos tic resul t No observ ation record ed. Not Available 07/17 19:52:47 07/17/20 24 12/22/2018 CT, head, w/o contr ast No observ ation record ed. Not Available 07/17 19:52:48 07/17/2010/05/2019 CT, head, w/o contr ast No observ ation record ed. Not Available 07/17 19:52:49 07/17/20 24 07/04/2020 , waldemar sun extre mity No observ ation record ed. Not Available 07/17 19:52:51 07/17/20 24 11/29/2020 XR, chest No observ ation record ed. Not Available 07/17 19:52:54 07/17/20 24 05/13/2023 XR, chest No observ ation record ed. Not Available 07/17 19:52:55 07/17/20 24 02/24/2023 CT, angio gram, head + neck, w/wo contr ast No observ ation record ed. Not Available 07/17 19:52:57 07/17/20 24 10/22/2019 XR, hand, 3 or more view No observ ation record ed. Not Available 07/17 19:52:59 07/17/20 24 03/19/2020 XR, kidne y + urete r + bladd er No observ ation record ed. Not Available 07/17 19:53:02 07/17/20 24 06/28/2020 XR, kidne y + urete r + bladd er No observ ation record ed. Not Available 07/17 19:53:03 07/17/20 24 01/30/2021 XR, kidne y + urete r + bladd er No observ ation record ed. Not Available 07/17 19:53:04 07/17/20 24 06/27/2020 US, renal No observ ation record ed. Not Available 07/17 19:53:05 07/17/20 24 05/14/2023 CT, head + neck, w/o contr ast No observ ation record ed. Not Available 07/17 19:53:06 07/17/2008/22/2019 US, abdom en No observ ation record ed. Not Available 07/17 19:53:07 07/17/20 24 10/11/2020 imagi ng/di agnos tic resul t No observ ation record ed. Not Available 07/17 19:53:09 07/17/20 24 10/22/2019 imagi ng/di agnos tic resul t No observ ation record ed. Not Available 07/17 19:53:10 07/17/20 24 07/29/2023 imagi ng/di agnos tic resul t No observ ation record ed. Not Available 07/17 19:53:12 07/17/20 24 05/14/2023 imagi ng/di agnos tic resul t No observ ation record ed. Not Available 07/17 19:53:13 07/17/20 24 10/16/2019 imagi ng/di agnos tic resul t No observ ation record ed. Not Available 07/17 19:53:14 07/17/20 24 09/17/2021 CT, abdom en + pelvi s, w/o contr ast No observ ation record ed. Not Available 07/17 19:53:19 07/17/20 24 08/28/2021 imagi ng/di agnos tic resul t No observ ation record ed. Not Available 07/17 19:53:21 07/17/20 24 12/11/2021 imagi ng/di agnos tic resul t No observ ation record ed. Not Available 07/17 19:53:22 07/17/20 24 12/11/2021 imagi ng/di agnos tic resul t No observ ation record ed. Not Available 07/17 19:53:24 07/17/20 24 03/12/2022 imagi ng/di agnos tic resul t No observ ation record ed. Not Available 07/17 19:56:06 07/17/20 24 06/25/2021 imagi ng/di agnos tic resul t No observ ation record ed. Not Available 07/17 19:56:07 07/17/20 24 10/07/2020 imagi ng/di agnos tic resul t No observ ation record ed. Not Available 07/17 19:56:13 07/17/20 24 07/08/2021 imagi ng/di agnos tic resul t No observ ation record ed. Not Available 07/17 19:56:18 Result Notes None recorded. Problems Name Problem SNOMED Code Status Onset Date Resolution Date Notes Provider Name and Address Organization Details Recorded Time Divertic ulosis of large intestin e 390331184 Active 2001 Problem Code: K57.30; Problem Code Type: ICD-10; Not Available [facility] 3 04:11:58 Paroxysm al atrial fibrilla tion 980945710 Active 200605/24/20 23 - Comments only - Cindi Kincaid MD - Clinical ly remainin g stable on metoprol ol, verapami l, anticoag ulated on xarelto. Problem Code: I48.0; Problem Code Type: ICD-10; Not Available [facility] 3 04:11:58 Hyperlip idemia 03943732 Active 200602/20/20 23 - Comments only - Cindi Kincaid MD - , Most recent lipid panel a few years ago was revealin g good control on the simvasta tin 10 mg daily. However given possible TIA we may need to increase or transiti on to a more potent statin. Problem Code: E78.5; Problem Code Type: ICD-10; Not Available [facility] 3 04:11:59 Chronic pain syndrome 547094171 Active 200605/12/20 22 - Comments only - Cindi Kincaid MD - for which he is taking lyrica regulari ly currentl y (althoug h may be able to stop this once recovere d from c-spine surgery) , prn baclofen for his LBP. He has very rare use of oxycodon e - last rx from 01/20/22 for 28 tabs and he still has some left. This was NOT renewed today. I am fine with Dr. Clayton doing post-ope rative pain manageme nt and I asked that Ovidio call by the last week of May if he is having any signific ant ongoing pain. He has not had any prior concerni ng issues regardin g opioid use. Problem Code: G89.4; Problem Code Type: ICD-10; Not Available [facility] 3 04:11:59 Headache 55643947 Active 2006 Problem Code: R51; Problem Code Type: ICD-10; Not Available [facility] 3 04:11:59 Essentia l hyperten tod 31946290 Active 200106/12/20 23 - Comments only - Cindi Kincaid MD - Blood pressure today within normal limits, Last visit elevated but has been in more pain.. We will continue to monitor. He continue s on metoprol ol, verapami l. Problem Code: I10; Problem Code Type: ICD-10; Not Available [facility] 3 04:11:59 Nicotine dependen ce 91940410 Active 2003 Problem Code: Z87.891; Problem Code Type: ICD-10; Not Available [facility] 3 04:11:59 Fatigue 95680107 Active 2006 Problem Code: R53.83; Problem Code Type: ICD-10; Not Available [facility] 3 04:11:59 Low back pain 499720370 Active 200109/10/20 22 - Comments only - Cindi Kincaid MD - , Remainin g fairly stable. Ovidio feels he is learned to live with a fairly high pain level, continue s to remain very physical ly active which he feels does help. However he does intermit tently use an oxycodon e 15 mg, sometime s half a tablet. He is used 28 tablets over the last 8 months. Infreque nt use. I did renew that today, 28 tablets. He keeps it locked in his home. Problem Code: M54.5; Problem Code Type: ICD-10; Not Available [facility] 3 04:11:59 Steatosi s of liver 288432221 Active 200102/20/20 23 - Comments only - Cindi Kincaid MD - Most recent LFTs with slightly elevated AST at 48. His abdomina l CT done on 08/20/20 was fairly unremark able. We will review further with him at the next visit. Problem Code: K76.0; Problem Code Type: ICD-10; Not Available [facility] 3 04:11:59 Herpesvi bridgett infectio n 48068111 Active 200907/28/20 21 - Comments only - Cindi Kincaid MD - , History of. He had weaned himself off the daily valacycl ovir, does have some still to use acutely if needed. Problem Code: B00.9; Problem Code Type: ICD-10; Not Available [facility] 3 04:11:59 Speciali zed medical examinat ion Active 2013 Problem Code: Z01.89; Problem Code Type: ICD-10; Not Available [facility] 3 04:11:59 Pain of left shoulder joint 15637506857 699186 Active 2014 Problem Code: M25.512; Problem Code Type: ICD-10; Not Available [facility] 3 04:12:00 Third republican encounte r Active 2014 Problem Code: Z71.0; Problem Code Type: ICD-10; Not Available [facility] 3 04:12:00 Benign neoplasm of skin 60002246 Active 2015 Problem Code: D23.9; Problem Code Type: ICD-10; Not Available [facility] 3 04:12:00 Adjustme nt disorder 98311677 Active 201502/20/20 23 - Comments only - Cindi Kincaid MD - With his signific ant other/he r family. Supporti ve listenin g today. He is engaged with counseli cierra which she finds quite benefici al. He also has an upcoming trip to [place] next month which she is looking forward to. Problem Code: F43.20; Problem Code Type: ICD-10; Not Available [facility] 3 04:12:00 Hypothyr oidism 59029268 Active 201506/12/20 23 - Comments only - Cindi Kincaid MD - Clinical ly remainin g euthyroi d on levothyr oxine 100 mcg daily. TSH in January was appropri ate. Problem Code: E03.9; Problem Code Type: ICD-10; Not Available [facility] 3 04:12:00 Arthralg ia of the ankle and/or foot 459533307 Active 2015 Problem Code: M25.571; Problem Code Type: ICD-10; Not Available [facility] 3 04:12:00 Psychody namic relation ship finding 079831638 Active 201606/12/20 23 - Comments only - Cindi Kincaid MD - With associat ed stress. Supporti ve listenin g today. Ovidio is trying to make sure he is moving ahead with what he feels is best for his mental and physical health, just hopes that his family will learn to do the same at some point. Main issue currentl y is at the, particul morteza his signific ant other, have an alcoholi sm problem. He has come to realize that they need to sort that out on their own, he is not going to get them to change on his own. Problem Code: Z63.9; Problem Code Type: ICD-10; Not Available [facility] 3 04:12:00 Postproc edural state finding 662136176 Active 2016 Problem Code: Z98.89; Problem Code Type: ICD-10; Not Available [facility] 3 04:12:00 Kidney stone 92216191 Active 201602/23/20 20 - Comments only - Cindi Kincaid MD - will refer to urology for possible lithotri psy Problem Code: N20.0; Problem Code Type: ICD-10; Not Available [facility] 3 04:12:01 Pain in right arm 414191164 Active 2016 Problem Code: M79.601; Problem Code Type: ICD-10; Not Available [facility] 3 04:12:01 Dizzines s and giddines s 259062575 Active 201609/10/20 22 - Comments only - Cindi Kincaid MD - Which he has had intermit tently historic ally, has been diagnose d with vertigo. Episodes seem to have been somewhat related to rapid movement s and dehydrat ion. Now he feels that they are happenin g more frequent ly although does not sound like quite as severely . I wonder what role some of the medicati ons may be playing. Given that he is no longer having the left upper extremit y radiculo melissa we can stop the Lyrica. We will also have him follow-u p with his neurolog ist to see if he can come off the [facility] de. He has been evaluate d by cardiolo gy and they do not feel that these dizzy episodes are related to cardiac etiology . Problem Code: R42; Problem Code Type: ICD-10; Not Available [facility] 3 04:12:01 Insomnia 366329732 Active 2017 Problem Code: G47.00; Problem Code Type: ICD-10; Not Available [facility] 3 04:12:01 Pain of right shoulder joint 40908045575 209994 Active 2017 Problem Code: M25.511; Problem Code Type: ICD-10; Not Available [facility] 3 04:12:01 Thromboc ytopenic disorder 820104312 Active 201709/10/20 22 - Comments only - Cindi Kincaid MD - For which she is followin g with hematolo gy. 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 Platelet count currentl y 94,000, remainin g relative ly stable. Problem Code: D69.6; Problem Code Type: ICD-10; Not Available [facility] 3 04:12:01 Pain in right hand 56073077837 9109 Active 2017 Problem Code: M79.641; Problem Code Type: ICD-10; Not Available [facility] 3 04:12:01 Polyneur opathy 04386033 Active 201803/14/20 19 - Comments only - Cindi Knicaid MD - focal to the L4 region it appears. THis could be spine related - will get a copy of his most recent MRI report. Problem Code: G62.9; Problem Code Type: ICD-10; Not Available [facility] 3 04:12:02 Pain in left foot 22314853201 9107 Active 2018 Problem Code: M79.672; Problem Code Type: ICD-10; Not Available [facility] 3 04:12:02 Pain of right knee joint 39119068354 4100 Active 201812/01/19 20 - Comments only - Rah Little - Doing well status post right total knee revision arthropl asty. Advised him to take oxycodon e half tablet every 4 hours until pain improvin g and then can space out the dosing and use a full tablet before physical therapy. He can use a half or full tablet at night. He will follow up with Orthoped ics as schedule d. He will continue physical therapy. Problem Code: M25.561; Problem Code Type: ICD-10; Not Available [facility] 3 04:12:02 Adult health examinat ion Active 201802/20/20 23 - Comments only - Cindi Kincaid MD - Ovidio will be due for colonosc opy next year. PSA ordered. He continue s to be physical ly active, encourag ed him with the same. Also remainin g mentally active and engaged. Problem Code: Z00.00; Problem Code Type: ICD-10; Not Available [facility] 3 04:12:02 Seizure 97335898 Active 2019 Problem Code: R56.9; Problem Code Type: ICD-10; Not Available [facility] 3 04:12:02 Therapeu tic drug monitori ng assay 18792645 Active 201905/12/20 22 - Comments only - Cindi Kincaid MD - he has been instruct ed to take his last dose of xarelto on 05/15/22. It can then be resumed post-ope ratively per Dr. Clayton' s recommen dation. Problem Code: Z51.81; Problem Code Type: ICD-10; Not Available [facility] 3 04:12:02 Trigger finger of right hand 16007373796 332843 Active 201907/28/20 21 - Comments only - Cindi Kincaid MD - Improved status post trigger finger release. Continue s to do some massage. Problem Code: M65.331; Problem Code Type: ICD-10; Not Available [facility] 3 04:12:02 Migraine 24344294 Active 201901/23/20 22 - Comments only - Cindi Kincaid MD - For which he follows with neurolog y. Symptoma tically he did the best when he was getting Botox injectio ns but insuranc e stopped covering those. He currentl y is on Emgality through neurolog y, feels it helps cut back the frequenc y of migraine s to some degree. Also on lamotrig ine, Lyrica. Has sumatrip walker to use as needed. 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 Plan for surgical decompre ssion on 03/17/22. No current contrain dication to surgery providin g acute GI symptoms have resolved . He knows to take his last dose of xarelto tomorrow , 03/13/22. No cardiopu lmonary concerns that are contrain dicatory . Will check a CBC/BMP. 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 No loop recorder . He continue s to follow regularl y with cardiolo gy. He is on verapami l, metoprol ol which are providin g good rate control. On Xarelto. Clinical ly remainin g stable. Problem Code: Z95.818; Problem Code Type: ICD-10; Not Available [facility] 3 04:12:03 Disorder of thyroid gland 11391522 Active 202002/20/20 23 - Comments only - Cindi Kincaid MD - Due for TFTs. On levothyr oxine. Problem Code: E07.9; Problem Code Type: ICD-10; Not Available [facility] 3 04:12:03 Pain in left arm 699731435 Active 202001/23/20 22 - Comments only - Cindi Kincaid MD - Due to cervical radiculo melissa. Surgery planned for March, anterior cervical discecto my and fusion C4-C6. We will have Ovidio come back for preop a week or 2 prior. We discusse lance, he is aware that he will need to stop the Xarelto at least 3 days prior to the planned procedur e and would resume it after the procedur e. We discusse lance postoper ative pain manageme nt. I think it is best for the surgeon to provide the immediat e postoper ative pain manageme nt. If Ovidio still requires pain manageme nt a few weeks after the surgery then I can take over managing at that time. He does not currentl y use oxycodon e chronica lly, just once in a while for severe low back pain. As above he is used less than 30 tablets in 6 months. Problem Code: M79.602; Problem Code Type: ICD-10; Not Available [facility] 3 04:12:04 Bleeding from nose 909645066 Active 202006/22/20 22 - Deterior ated - Luiza Reddy on [employer] - ER 06/17/22 Problem Code: R04.0; Problem Code Type: ICD-10; Not Available [facility] 3 04:12:04 Amnesia 91996726 Active 202009/10/20 22 - Comments only - Cindi Kincaid MD - Which he feels may have been related to a transien t amnestic event several years ago. He does not feel this is worsenin g. Problem Code: R41.3; Problem Code Type: ICD-10; Not Available [facility] 3 04:12:04 Pain in finger of right hand 19268682334 9109 Active 202112/08/19 22 - Comments only - Ovidio Deleon MD - Initiall y hard to find piont of pain, seemed in MCP, but then found tender spot in area of palmar IP joint. Not a trigger thumb. May be arthriti s, but I would like XR to make sure not a cyst or somethin g else physical ly there. to manage, use splint to comfort, topical NSAIDs. Problem Code: M79.644; Problem Code Type: ICD-10; Not Available [facility] 3 04:12:04 Senile hyperker atosis 647640484 Active 2021 Problem Code: L82.1; Problem Code Type: ICD-10; Not Available [facility] 3 04:12:05 Pre-surg jacinto evaluati on Active 202105/12/20 22 - Comments only - Cindi Kincaid MD - for ACDF C4-6 schedule d for 05/19/22. No current contrain dication to surgery. He has not current concerni ng cardiopu lmonary nor infectio us symptomo logy. COVID PCR done today per patient request. Recent EKG enclosed . He is schedule d to have bloodwor k (ordered by declan corbin) on 05/18/22. See below for further instruct ions. Problem Code: Z01.818; Problem Code Type: ICD-10; Not Available [facility] 3 04:12:05 Medical examinat ion for suspecte d conditio n Completed 202105/12/2022 Problem Code: Z03.818; Problem Code Type: ICD-10; Not Available [facility] 3 04:12:05 High antibody titer 376247051 Active 202109/10/20 22 - Comments only - Cindi Kincaid MD - For which declan corbin has requeste d further evaluati on. We will decide on appropri ate addition al blood work and let him know. Problem Code: R76.0; Problem Code Type: ICD-10; Not Available [facility] 3 04:12:05 Pain in thoracic spine 296168606 Active 202109/10/20 22 - Comments only - Cindi Kincaid MD - Left-cb ed, predomin antly just is noted if he is sitting in the car driving home from work. It was not precipit ated by any rash in the area. No abnormal physical findings of that area of the back nor of the abdomen. No splenome eleanor. I believe this may be radicula r/positi onal. Discusse d MRI imaging of the thoracic spine. He wants to hold off for now as it only bothers him not 1 position . Problem Code: M54.9; Problem Code Type: ICD-10; Not Available [facility] 3 04:12:05 [place] - lesion 569229355 Active 2022 Problem Code: L84; Problem Code Type: ICD-10; Not Available [facility] 3 04:12:06 Cough 73191511 Completed 202202/05/2023 Problem Code: R05.8; Problem Code Type: ICD-10; FELIX CUEVAS PA-C [facility] [address], [place], [address] [facility] 17:13:48 Melena [id number] Completed 202201/25/2023 Problem Code: K92.1; Problem Code Type: ICD-10; Not Available [facility] 3 04:12:06 Long-ter m current use of anticoag ulant 805495196 Active 2022 Problem Code: Z79.01; Problem Code Type: ICD-10; Not Available [facility] 3 04:12:06 Asymptom atic microsco pic hematuri a 93944102891 438278 Active 2022 Problem Code: R31.21; Problem Code Type: ICD-10; Not Available [facility] 3 04:12:07 Hemosper sophia 39652340 Active 202202/20/20 23 - Comments only - Cindi Kincaid MD - , One-time episode. Also has some possible hematuri a on UA in the office. Will send for micro. Hematosp ermia likely related to being on the Xarelto. Problem Code: R36.1; Problem Code Type: ICD-10; Not Available [facility] 3 04:12:07 Aphasia 64648618 Active 202205/24/20 23 - Comments only - Cindi Kincaid MD - That occurred for about 1 minute., Consider tanika huber. He has met with neurolog y. CTA of the head was essentia lly unremark able. He has some small vessel ischemic disease but not large vessel stenoses . Again he is anticoag ulated. Problem Code: R47.01; Problem Code Type: ICD-10; Not Available [facility] 3 04:12:07 Trigemin al neuralgi a 48556110 Active 202206/12/20 23 - Comments only - Cindi Kincaid MD - Remainin g quiescen t with carbamaz epine 100 mg daily. Recent level is low but is on menses clinical ly stable he can continue the same dose. He does follow with neurolog y. Problem Code: G50.0; Problem Code Type: ICD-10; Not Available [facility] 3 04:12:07 Chest pain 19761204 Active 2022 Problem Code: R07.89; Problem Code Type: ICD-10; Not Available [facility] 3 04:12:07 Trigger finger of left hand [id number] 805537 Active 2022 Problem Code: M65.332; Problem Code Type: ICD-10; Not Available [facility] 3 04:12:08 Pain in right lower limb 304748492 Active 2022 Problem Code: M79.604; Problem Code Type: ICD-10; Not Available [facility] 3 04:12:08 Disorder of kidney and/or ureter 522238086 Active 2022 Problem Code: N28.9; Problem Code Type: ICD-10; Not Available [facility] 3 04:12:08 Shoulder joint pain 613082594 Completed 201407/28/2023 04/04/20 15 - Deterior ated - Cindi Kincaid MD - When he is ready/ab le to he will call Dr. Collins to schedule shoulder surgery. I suggeste d he also arrange to meet with Dr. Collins prior to the surgery to figure out post-ope rative pain manageme nt. He has met with a pain speciali st, Dr. Deepa fowler, who has document ed his recommen dations in the consult note Problem Code: 719.41; Problem Code Type: ICD-9; Not Available [facility] 3 04:12:08 Chronic sinusiti s 98891729 Completed 201707/28/2021 Problem Code: J32.9; Problem Code Type: ICD-10; Not Available [facility] 3 04:12:09 Chronic pain 88084703 Completed 200607/28/2023 Problem Code: 338.29; Problem Code Type: ICD-9; Not Available [facility] 3 04:12:09 Amnesia 15992548 Completed 201607/28/2021 Problem Code: R41.3; Problem Code Type: ICD-10; Not Available [facility] 3 04:12:09 Abnormal finding on evaluati on procedur e 172074998 Completed 202102/19/2023 Problem Code: R89.9; Problem Code Type: ICD-10; Not Available [facility] 3 04:12:09 Pre-surg jacinto evaluati on Completed 201807/28/2021 Problem Code: Z01.818; Problem Code Type: ICD-10; Not Available [facility] 3 04:12:10 Divertic ular disease of colon 322517807 Completed 200107/28/2023 Not Available [facility] 3 04:12:10 Nausea and vomiting 58043615 Completed 202102/19/2023 Problem Code: R11.2; Problem Code Type: ICD-10; Not Available [facility] 3 04:12:10 Gastriti s 7412742 Completed 201307/28/2021 Problem Code: K29.70; Problem Code Type: ICD-10; Not Available [facility] 3 04:12:11 Visual disturba nce 98426878 Completed 201507/28/2021 Problem Code: H53.9; Problem Code Type: ICD-10; Not Available [facility] 3 04:12:11 Acute sinusiti s 26791297 Completed 201807/28/2021 Problem Code: J01.90; Problem Code Type: ICD-10; Not Available [facility] 3 04:12:11 Disorder of pigmenta tion 903041337 Completed 202107/28/2023 12/08/19 22 - Comments only - Ovidio Deleon MD - scalp. possible SK, but dark colorati on of lesion does stand out, melanoma possible . I offered biopsy. Given size of lesion, we decied to punch as would allow full sample with depth, though margins may not be clear and he would need re-excis ion if melanoma . Risks, benefits , and alternat sherry of punch biopsy reviewed with patient. Patient voiced understa gilmer and gave verbal consent. Area prepped in sterile fashion. Local anesthes ia with 1% lidocain e with epinephr ine. 6mm punch taken around lesion, closed with one 3.0 prolene. He did loose 2-3ml blood, but hemostat ic after closure and pressure dressing . Disucsse d wound care, remove suture 2 weeks. Problem Code: L81.9; Problem Code Type: ICD-10; Not Available [facility] 3 04:12:11 Localize d eruption of skin 032240666 Completed 201807/28/2021 Problem Code: R21; Problem Code Type: ICD-10; Not Available [facility] 3 04:12:12 Steatohe patitis 176841546 Completed 200107/28/2023 Not Available [facility] 3 04:12:12 Swelling 61694916 Completed 201907/28/2021 Not Available [facility] 3 04:12:12 Spasm 30048868 Completed 201507/28/2021 Problem Code: M62.838; Problem Code Type: ICD-10; Not Available [facility] 3 04:12:12 Altered mental status 711036692 Completed 201607/28/2021 Problem Code: R41.82; Problem Code Type: ICD-10; Not Available [facility] 3 04:12:13 Acute sinusiti s 39183577 Completed 202202/19/2023 Problem Code: J01.90; Problem Code Type: ICD-10; Not Available [facility] 3 04:12:13 Acute upper respirat ory infectio n 37174591 Completed 202102/19/2023 Problem Code: J06.9; Problem Code Type: ICD-10; Not Available [facility] 3 04:12:13 Pain in thoracic spine 876765132 Completed 201607/28/2021 Problem Code: M54.89; Problem Code Type: ICD-10; Not Available [facility] 3 04:12:13 Atrial fibrilla tion 19005308 Completed 200607/28/2023 Problem Code: 427.31; Problem Code Type: ICD-9; Not Available [facility] 3 04:12:14 Chest pain 75602302 Completed 201907/28/2021 Problem Code: R07.9; Problem Code Type: ICD-10; Not Available [facility] 3 04:12:14 Diarrhea 41984325 Completed 202102/19/2023 Problem Code: R19.7; Problem Code Type: ICD-10; Not Available [facility] 3 04:12:14 Altered bowel function 35985254 Completed 202202/19/2023 Problem Code: R19.4; Problem Code Type: ICD-10; Not Available [facility] 3 04:12:15 History of tobacco use 37805959544 03 Completed 200307/28/2023 Not Available [facility] 3 04:12:15 Otitis externa 0602309 Completed 201707/28/2021 Problem Code: H60.90; Problem Code Type: ICD-10; Not Available [facility] 3 04:12:15 Cough 79987783 Completed 201807/28/2021 Problem Code: R05; Problem Code Type: ICD-10; [address], [place], [address] , [facility]. 3 17:13:48 Rat bite Completed 202102/19/2023 Problem Code: W53.11xA ; Problem Code Type: ICD-10; Not Available [facility] 3 04:12:16 Cough 93928416 Active 2022 Problem Code: R05.8; Problem Code Type: ICD-10; [address], [place] [address] , [facility] 3 17:13:48 Sore throat 785640992 Active [address], [place] [address] , [facility] 3 17:34:41 Anti-nuc lear factor detected 386586430 Active 2022 1:160 in [address], [place] [address] , [facility] 3 14:19:10 History of chest pain 18858987433 964083 Active [address], [place] [address] , [facility] 3 15:00:27 Anterior rhinorrh ea 444439808 Active [address], [place] [address] , [facility] 3 15:00:17 Tenderne ss of right lower quadrant of abdomen 540298856 Active 2023 MARAH COSTELLO, [facility]- [address], [place] [address] , [facility] 4 15:09:35 Inguinal hernia 762480214 Active 2023 Will be lacrosco pically repaired mid-Henry h 2023. 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 Procedures Surgical History Date Name Laterality Status Provider Name and Address Organization Details Recorded Time 4 release of trigger finger completed Dallin Quinones MA [facility] 12/15/2023 19:40:31 Imaging Results None recorded. Procedure Notes None recorded. Medical Equipment None Reported. Allergies Allergen ID Allergen Name Allergen Category Reaction Reaction Severity Criticality Documentation Date Start Date Code Code System Note Provider Name and Address Organization Details Recorded Time 39794 Ambien medicatio n other severe high 09/16/20232016 29679 5 RxNorm alter ed menta l statu s Sophia upton, [facility] 3 07:45:04 29725 amitripty line medicatio n other severe high 09/16/20232001 704 RxNorm racin g heart Sophia upton, [facility] 3 07:44:35 68419 Tambocor medicatio n other severe high 09/16/20232022 03756 3 RxNorm cause d [place] and QRS prolo ngati on Sophia upton, [facility] 3 07:46:17 32265 Lipitor medicatio n other severe high 09/16/20232022 65489 5 RxNorm cause d liver enzym e abnor malit ies Sophia upton, [place] - [facility]. 3 07:45:38 Medications Name Sig Start Date Stop Date Status Note LastModified by Organization Details LastModified Time Prescript ion - Renewal active levothyr oxine 100 mcg tablet, fluticas one propiona te 50 mcg/actu Not Available Not Available Not Available verapamil ER (SR) 120 mg tablet,ex tended release TAKE 1 TABLET BY MOUTH AT BEDTIME active Not Available Not Available No t Available Toprol XL 50 mg tablet,ex tended release 1TAB daily 12/27 completed Not Available Not Available Not Available neomycin- polymyxin -hydrocor t 3.5 mg/mL-10, 000 unit/mL-1 % ear solution Apply 4 drops in affected ear QID 06/27 completed Not Available Not Available Not Available prednison e 10 mg tablet 4 tabs x 3 days, 3 tabs x 3 days, 2 tabs x 3 days and 1 tab x 3 days. Take in the AM with food. Fill if needed for radiatin g arm pain. 01/16 completed Not Available Not Available Not Available Dilaudid 2 mg tablet 1 tid 12/10 completed Not Available Not Available Not Available Acetamino phen Extra Strength 500 mg tablet Take 1 tablet by mouth every six hours as needed active Not Available Not Available No t Available Tikosyn 500 mcg capsule 1 CAP BID 01/06 completed Not Available Not Available Not Available Glucophag e 500 mg tablet 1 tab daily 04/04 completed Not Available Not Available Not Available polyethyl sonya glycol 3350 17 gram oral powder packet Drink 1 packet dissolve d in water once a day as needed 09/16 completed Not Available Not Available Not Available aspirin 325 mg tablet 1 TAB QD 12/21 completed Not Available Not Available Not Available benzonata te 200 mg capsule Take 1 capsule by mouth three times a day as needed for cough 11/16 /2023 completed Not Available Not Available Not Available Lotrisone 1 %-0.05 % topical cream INDRA AA twice daily 04/17 completed Not Available Not Available Not Available sumatript an 100 mg tablet Take 0.5-1 tablet by mouth as needed 06/08 completed Not Available Not Available Not Available methadone 10 mg tablet 1TAB bid 08/11 completed Not Available Not Available Not Available Imitrex 20 mg/actuat ion nasal spray use 2 SPRAYS at onset of migraine symptoms , maximum of 2 TIMES a day 07/05 completed Not Available Not Available Not Available Flonase 50 mcg/DOSE nasal inhaler 2 SPRAY daily 11/17 completed Not Available Not Available Not Available prednison e 20 mg tablet TAKE 3 TABLETS BY MOUTH DAILY FOR 3 DAYS THEN 2 TABLETS FOR 3 DAYS THEN 1 TABLET FOR 3 DAYS 05/16 completed Not Available Not Available Not Available Prilosec 40 mg capsule,d elayed release 1 cap qd 03/03 completed Not Available Not Available Not Available metoprolo l succinate ER 100 mg tablet,ex tended release 24 hr TAKE 1 TABLET BY MOUTH DAILY active Not Available Not Available No t Available simvastat in 10 mg tablet TAKE 1 TABLET BY MOUTH AT BEDTIME 02/21 completed Not Available Not Available Not Available Seroquel 25 mg tablet take 1 at hs as needed, does not need to be taken daily 02/23 completed Not Available Not Available Not Available verapamil ER (SR) 180 mg tablet,ex tended release Take 1 by mouth daily 11/25 completed Not Available Not Available Not Available triamcino lone acetonide 0.025 % lotion apply three times daily 2014 active Not Available Not Available Not Avai lable Zithromax 250 mg tablet Take 2 by mouth today, then take 1 by mouth daily x 4 days 01/09 completed Not Available Not Available Not Available warfarin 2.5 mg tablet Take 2 by mouth daily for 3 days, then change if directed by PCP 01/03 completed Not Available Not Available Not Available valacyclo vir 500 mg tablet Take 1 tablet by mouth once a day as needed 2021 active Not Available Not Available Not Avai lable amoxicill in 500 mg tablet 1 TAB twice daily 02/18 completed Not Available Not Available Not Available lidocaine -prilocai ne 2.5 %-2.5 % topical cream Apply 1 gram to skin as directed as needed 09/16 completed Not Available Not Available Not Available lamotrigi ne 25 mg tablet TAKE 2 TABLETS BY MOUTH TWICE DAILY 2023 active Not Available Not Available Not Avai lable oxycodone 15 mg tablet TAKE 1 TABLET BY MOUTH EVERY 4 HOURS NEEDED active Not Available Not Available No t Available Imitrex 50 mg tablet 09/10 completed Not Available Not Available Not Available levothyro xine 100 mcg tablet Take 1 tablet by mouth once a day active Not Available Not Available No t Available carbamaze pine 200 mg tablet 1/2 tablet daily 09/16 completed Not Available Not Available Not Available Guaiatuss in AC 10 mg-100 mg/5 mL oral liquid Take 1-2 tsp by mouth every six hours as needed for cough 02/04 completed Not Available Not Available Not Available amoxicill in 875 mg tablet take 1 tab by mouth twice daily 11/07 completed Not Available Not Available Not Available Diflucan 100 mg tablet 1 TAB QD 09/12 completed Not Available Not Available Not Available tamsulosi n 0.4 mg capsule TAKE 1 CAPSULE BY MOUTH EVERY DAY 2023 active Not Available Not Available Not Avai lable ranitidin e 75 mg tablet Take 1 tab by mouth daily 10/08 completed Not Available Not Available Not Available baclofen 10 mg tablet TAKE 1 TABLET BY MOUTH EVERY DAY NEEDED 2023 active Not Available Not Available Not Avai lable Tylenol 500 mg tablet tab q 6 hr 01/06 completed Not Available Not Available Not Available triamcino lone acetonide 0.1 % topical ointment apply to AA TID PRN 2014 active Not Available Not Available Not Avai lable warfarin 2 mg tablet Take 1 by mouth daily or as directed 06/25 completed Not Available Not Available Not Available promethaz ine 25 mg tablet 1 tabs q6hrs as needed 09/12 completed Not Available Not Available Not Available ibuprofen 400 mg tablet 1 tab q 8 hr 01/06 completed Not Available Not Available Not Available oxybutyni n chloride ER 5 mg tablet,ex tended release 24 hr active Not Available Not Available Not Available gabapenti n 300 mg capsule take 1 cap by mouth twice daily 2019 active Not Available Not Available Not Avai lable omeprazol e 20 mg capsule,d elayed release TAKE 1 CAPSULE BY MOUTH TWICE A DAY 12/09 completed Not Available Not Available Not Available Cortispor in 3.5 mg/g-10,0 00 unit/g-0. 5 % topical cream 4 drops in affected ear 4 times a day for 7d then prn 07/05 completed Not Available Not Available Not Available cephalexi n 500 mg tablet Take 1 tab by mouth four times daily - if needed for skin infectio n 07/02 completed Not Available Not Available Not Available hydroxyzi ne HCl 25 mg tablet Take 1 tablet three times a day prn for itching 09/12 completed Not Available Not Available Not Available aspirin 81 mg tablet 1 tab daily 04/02 completed Not Available Not Available Not Available ranitidin e 150 mg capsule Take 1 cap by mouth daily 02/20 completed Not Available Not Available Not Available acyclovir 200 mg capsule Take 1 capsule by mouth as directed as needed active Not Available Not Available No t Available Coumadin 5 mg tablet 1 TAB daily 04/07 completed Not Available Not Available Not Available Seroquel 100 mg tablet Take 1 tab by mouth daily at bedtime 07/09 completed Not Available Not Available Not Available Lotrimin AF (clotrima zole) 1 % topical cream AAA bid prn 12/22 completed Not Available Not Available Not Available gabapenti n 100 mg capsule Take 2 caps QHS x1 week, then 1 QHS x1 week, then stop 07/05 completed Not Available Not Available Not Available Aspir-81 mg tablet,de layed release daily 09/29 completed Not Available Not Available Not Available warfarin 1 mg tablet Take 1 by mouth daily or as directed 06/25 completed Not Available Not Available Not Available colchicin e 0.6 mg tablet 1 tab twice daily 01/06 completed Not Available Not Available Not Available Imitrex 25 mg tablet 01/23 completed Not Available Not Available Not Available fluticaso ne propionat e 50 mcg/actua tion nasal spray,alejandrina pension INSTILL 1 SPRAY TO EACH NOSTRIL TWICE DAILY 05/13 completed Not Available Not Available Not Available Ambien 5 mg tablet Take 1-2 tabs at bedtime as needed 03/04 completed Not Available Not Available Not Available doxycycli ne hyclate 100 mg tablet Take 1 tab by mouth twice daily 08/23 completed Not Available Not Available Not Available Ambien 10 mg tablet 1 PRN QHS 01/23 completed Not Available Not Available Not Available finasteri de 5 mg tablet TAKE 1 TABLET BY MOUTH ONCE DAILY active Not Available Not Available No t Available amoxicill in 875 mg-potass ium clavulana te 125 mg tablet 1 tablet by mouth twice a day 01/11 completed Not Available Not Available Not Available oxycodone 5 mg tablet Take 1 tablet every 6 hours by oral route as needed. 02/11 completed [facility] ; #10 Not Available Not Available Not Available Augmentin 875 mg tablet 1 TAB twice daily 08/21 completed Not Available Not Available Not Available Vitamin D3 25 mcg (1,000 unit) capsule Take 1 capsule by mouth once a day 09/08 completed Not Available Not Available Not Available rosuvasta tin 10 mg tablet Take 1 tablet every day by oral route. active Not Available Not Available No t Available Zonegran 25 mg capsule Take 50 mg by mouth every night 09/16 completed Not Available Not Available Not Available gabapenti n 100 mg tablet 1 TAB three times daily 07/27 completed Not Available Not Available Not Available pregabali n 100 mg capsule Take 1 capsule by mouth twice a day 09/16 completed Not Available Not Available Not Available Lyrica 75 mg capsule Take 1 capsule by mouth twice a day 01/19 completed Not Available Not Available Not Available Guaifenes in-Codein e 5ML every six hours 02/21 completed Not Available Not Available Not Available Centrum Silver 1 tablet once a day 10/07 completed Not Available Not Available Not Available omeprazol e 20 mg tablet,de layed release Take 1 capsule by mouth twice a day 08/08 completed Not Available Not Available Not Available diclofena c 1 % topical gel Apply 1 gram to affected area once a day as needed active Not Available Not Available No t Available Botox 200 unit injection Inject 200 unit as directed every 3 months 10/07 completed Not Available Not Available Not Available Complete Multivita min-Multi mineral 18 mg-400 mcg tablet Take 1 tablet by mouth once a day 2023 active Not Available Not Available Not Avai lable Xarelto 20 mg tablet TAKE 1 TABLET BY MOUTH EVERY DAY active Not Available Not Available No t Available Eliquis 5 mg tablet take 1 tablet by mouth twice a day 02/20 completed Not Available Not Available Not Available Colace 2-In-1 8.6 mg-50 mg tablet Take 2 tablet by mouth as directed as needed 2023 active Not Available Not Available Not Avai lable Emgality Pen 120 mg/mL subcutane ous pen injector INJECT UNDER THE SKIN MONTHLY DIRECTED 2023 active Not Available Not Available Not Avai lable Ubrelvy 100 mg tablet TAKE 1/2 TO 1 TABLET BY MOUTH DIRECTED . MAY TAKE SECOND DOSE AT LEAST 2 HOURS AFTER FIRST DOSE NEEDED active Not Available Not Available No t Available Ubrelvy 50 mg tablet 1 at onset of migraine - samples given by neurolog y 10/07 completed Not Available Not Available Not Available Vitals Date Recorded Body height Body mass index (BMI) Body weight Oxygen saturation Oxygen saturation in Arterial blood by Pulse oximetry Heart rate Systolic blood pressure Diastolic blood pressure Provider Name and Address Organization Details Last Updated DateTime 4 182.88 cm 21.4 kg/m2 45477.5 9 g 98 % 98 % 63 /min 142 mm[Hg] 70 mm[Hg] Zofia Silva [facility] 4 14:57:06 Social History Question Answer Notes LastModified by Organizat ion Details LastModified Time Tobacco Smoking Status Former Smoker quit 1982 Sophia upton [facility] 10/07/2023 14:23:00 What Is Your Level Of Alcohol Consumption? None [email or web address] Information not available 09/16/2023 When Did You Quit Smoking? 16+yearssin celastcigar ette [email or web address] Information not available 10/07/2023 What Was The Date Of Your Most Recent Tobacco Screening? 10/07/2023 [email or web address] Information not available 10/07/2023 What Is Your Current Pack Years? 10-19packye ars 2.5 Packs/day [email or web address] Information not available 10/07/2023 At What Age Did You Start Smoking Tobacco? 20 [email or web address] Information not available 10/07/2023 Do You Use Any Illicit Or Recreational Drugs? No [email or web address] Information not available 09/16/2023 Has Tobacco Cessation Counseling Been Provided? No [email or web address] Information not available 10/07/2023 How Many Years Have You Smoked Tobacco? 11 [email or web address] Information not available 10/07/2023 Do You Or Have You Ever Used Any Other Forms Of Tobacco Or Nicotine? No [email or web address] Information not available 10/07/2023 Sex: Male Functional Status None recorded. Mental Status None recorded. Family History Nothing Reported Notes:*Problem: Mother: age 87 age CAD, may have had RA Father: age 54 with 1st NH cause CAD(58 ) - had had an aortic valve replacement toward the end of his life Family History of: Diabetes: yes Other: kidney disease Thyroid disorder runs in the family. 1 Brother - pancreatic cancer 1 Sister - hole in heart 3 children (sons) - one brain surgery (seizures) Medical History No medical history recorded. Immunizations Vaccine Type Date Status Provider Name and Address Organization Details Recorded Time Tdap 11/17/2021 completed Not Available [facility] 05:30:10 zoster live 02/03/2013 completed Not Available [facility] 09/10/2023 05:30:10 Novel [id number], all formulations 10/15/2009 completed Not Available [facility] 09/10/2023 05:30:10 Pneumococcal conjugate PCV 13 04/24/2018 completed Not Available [facility] 09/10/2023 05:30:10 Influenza, high-dose, trivalent, PF 11/07/2019 completed Not Available [facility] 09/10/2023 05:30:11 Influenza, high-dose, trivalent, PF 07/25/2019 completed Not Available [facility] 09/10/2023 05:30:11 Td(adult) unspecified formulation 08/05/2013 completed Not Available [facility] 09/10/2023 05:30:11 Influenza, split virus, quadrivalent, PF 06/14/2016 completed Not Available [facility] 09/10/2023 05:30:11 Influenza, split virus, quadrivalent, PF 08/14/2015 completed Not Available [facility] 09/10/2023 05:30:11 Influenza, high-dose, quadrivalent, PF 07/25/2021 completed Not Available [facility] 09/10/2023 05:30:11 Influenza, high-dose, quadrivalent, PF 09/08/2022 completed Not Available [facility] 09/10/2023 05:30:11 COVID-19, mRNA, LNP-S, PF, 100 mcg/0.5mL dose or 50 mcg/0.25mL dose 01/06/2021 completed Not Available [facility] 09/10/2023 05:30:11 COVID-19, mRNA, LNP-S, PF, 100 mcg/0.5mL dose or 50 mcg/0.25mL dose 02/03/2021 completed Not Available [facility] 09/10/2023 05:30:11 COVID-19, mRNA, LNP-S, PF, 100 mcg/0.5mL dose or 50 mcg/0.25mL dose 04/30/2022 completed Not Available [facility] 09/10/2023 05:30:12 COVID-19, mRNA, LNP-S, PF, 100 mcg/0.5mL dose or 50 mcg/0.25mL dose 08/28/2021 completed Not Available [facility] 09/10/2023 05:30:12 pneumococcal polysaccharide PPV23 11/26/2022 completed Not Available [facility] 2022 05:30:12 pneumococcal polysaccharide PPV23 12/10/2007 completed Not Available [facility] 2022 05:30:12 influenza, unspecified formulation 06/01/2017 completed Not Available [facility] 09/10/2023 05:30:12 influenza, unspecified formulation 07/11/2013 completed Not Available [facility] 09/10/2023 05:30:12 influenza, unspecified formulation 07/14/2012 completed Not Available [facility] 09/10/2023 05:30:12 influenza, unspecified formulation 07/20/2014 completed Not Available [facility] 09/10/2023 05:30:12 influenza, unspecified formulation 08/16/2009 completed Not Available [facility] 09/10/2023 05:30:12 influenza, unspecified formulation 08/18/2011 completed Not Available [facility] 09/10/2023 05:30:12 influenza, unspecified formulation 08/21/2010 completed Not Available [facility] 09/10/2023 05:30:13 influenza, unspecified formulation 09/07/2008 completed Not Available [facility] 09/10/2023 05:30:13 influenza, unspecified formulation 10/03/2002 completed Not Available [facility] 09/10/2023 05:30:13 Respiratory syncytial virus (RSV) vaccine, unspecified 12/23/2023 completed HARJEET Nogueira, [facility] 12/24/2023 14:49:00 SARS-COV-2 (COVID-19) vaccine, UNSPECIFIED 07/22/2023 completed HARJEET Nogueira, [facility] 02/10/2024 15:45:31 influenza, unspecified formulation 08/30/2023 completed HARJEET Nogueira, [facility] 02/10/2024 15:46:08 Past Encounters Encounter ID Performer Location Encounter Start Date Encounter Closed Date Diagnosis/Indication Diagnosis SNOMED-CT Code Diagnosis ICD10 Code [id number] CINDI KINCAID MD [address] [place] [address] 05/16/2024 14:45:48 05/16/2024 16:14:44 Chronic pain 81162095 G89.29 Headache 28724819 R51.9 Paroxysmal atrial fibrillation 697945004 I48.0 Benign pro static hyperplasia 403371073 N40.1 Cerebrovas cular accident 298827356 I63.9 Essential hypertension 93856519 I10 Dysfunctio n of right vestibular system 1692488352 102762 H81.91 Thrombocyt openic disorder 805183342 D69.6 Health Concerns Section Related Observation LastModified by Organization Detai ls LastModified Time None Recorded Concern Status LastModified by Organization Details LastModified Time None Recorded Payers Encounter Date Sequence Insurance Name Policy Number Policy Bradley Covered Member ID Bradley Member ID Guarantor Name 05/16/2024 1 [place]: [employer] Ovidio Machado [id number] Ovidio Machado 05/16/2024 2 [place] [facility] [id number] Ovidio Machado [id number] Ovidio Machado Notes Date Note Type Note Provider Name and Address Organization Details Recorded Time 05/16/2024 text/html HPI Notes: Ovidio here today for f/u of h/o stroke, BAILEY, afib, HTN CINDI KINCAID MD [address], [place], [address], [place] - [facility]. 05/19/2024 05:39:04
--- OUTSIDE RECORDS SUMMARY | 2024-07-24 17:18 | XMS_ITS | Encounter Summary ---
Author Organization [facility] [place] [address] Care Team Providers Care Rotary Drill Rig Operator Name Role Phone Radha Mckeon MD Primary Care Provider [phone] Encounter Details Date Type Department Care Team (Late st Contact Info) Description 06/06/2024 Telephone [place] [address] Sri Jasmine Social History Tobacco Use Types Packs/Day Years [...] place to sleep or slept in a [facility] (including now)? No 04/01/2022 IPV Inpatient Questions [...] on file documented as of this encounter Miscellaneous Notes * Telephone Encounter - Sri Jasmine - 06/06/2024 12:45 PM EDT Patient got our letter that we had been trying to get him rescheduled to follow up with Devonte Coulter, he called today to say at this time he does not need to Be seen and if anything changes he will give us a call. documented in this encounter Plan of Treatment Upcoming Encounters Date Type Department Care Team (Late st Contact Info) Description 08/18/2024 11:00 AM EDT Hospital Encounter Non[place] [address] Arrived 02/22/2025 1:30 PM EDT Appointment Hematology [place] [address] 02/22/2025 2:30 PM EDT Office Visit Hematology [place] [address] Ellis Childers MD [facility] [address] [place] [address] Felicita Landa APRN [facility] [address] [place] [address] documented as of this encounter Visit Diagnoses Not on filedocumented in this encounter Care Teams Rotary Drill Rig Operator Relationship Specialty Start Date End Date Radha Mckeon MD [address] [place] [address] PCP - General 09/23/10 documented as of this encounter
--- OUTSIDE RECORDS SUMMARY | 2024-07-24 17:18 | XMS_ITS | Encounter Summary ---
Author Organization [facility] [place] [address] Care Team Providers Care Sales And Training Specialist Name Role Phone Radha Mckeon MD Primary Care Provider [phone] Encounter Details Date Type Department Care Team (Latest Contact Info) Description 07/20/2024 Travel Social History Tobacco Use Types Packs/Day Years [...] place to sleep or slept in a [facility] (including now)? No 04/01/2022 IPV Inpatient Questions [...] AM EDT Hospital Encounter [place] [address] Arrived 02/22/2025 1:30 PM EDT Appointment Hematology [place] [address] 02/22/2025 2:30 PM EDT Office Visit Hematology and Oncology at [place] [address] Ellis Childers MD [facility] [address] [place] [address] Felicita Landa APRN [facility] [address] [place] [address] documented as of this encounter Visit Diagnoses Not on filedocumented in this encounter Care Teams Sales And Training Specialist Relationship Specialty Start Date End Date Radha Mckeon MD [address] [place] [address] PCP - General 09/23/10 documented as of this encounter
--- OUTSIDE RECORDS SUMMARY | 2024-07-24 17:18 | XMS_ITS | Data Portability ---
Author Organization [facility], [facility] Address Nicholas Salazar [facility] [place] [address] Care Team Providers Care Interpreter And Translator Name Role Phone RADHA KINCAID Primary Care Provider [phone] [facility]/[place]/ONC/HEM Hematology/Oncology VINNY ALEXANDRA Orthopedic Surgeon CRISTIANO WORKMAN Neurologist [facility] PAIN MANAGEMENT Pain Management MANUEL CONDE Stenographic Court Reporter SANJUANA ACEVEDO Slubber Machine Operator CATARINA ZAFAR Auto Glass Technician JONATHON WILCOX Urologist [facility] Research Study Assistant JANAY BORJA Dentist Assessment Encounter Date Assessment Date Assessment LastModified by Organization Details LastModified Time 12/09/2023 12/09/2023 Patient presents with acute RLQ abdominal pain, non-acute abdomen. Differential diagnosis includes: R inguinal hernia, constipation. Will send studies as below. Recommended supportive care including rest, splinting, avoid heavy lifting or straining. Advised PO fluids and to monitor hydration status, add stool softener, continue MiraLax. Follow up as below; seek care urgently for fever > 101, severe, localized pain or any other new or concerning symptoms. Reviewed s&s bowel incarceration, and urgency of evaluation for this. [email or web address] Not available 12/09/2023 15:19:38 Plan of Treatment Reminders Order Date Submit Date Provider Last Modified By Organization Details Last Modified Time Details Appointments Medicare Annual Wellness 40 2023 02:20P M Not available Not available Not available Lab rapid strep group A, throat [address], [address] [place] [address], [address], [place], [address], 09/16/2023 18:40:26 culture, throat 2022 023 [facility] ([facility]), [address] [place] [address] [place], [address], 09/18/2023 09:42:12 influenza virus A + B + SARS-CoV- 2 (COVID19) Ag panel, rapid IA, upper respirato ry specimen [address], [address] [place] [address], [address], [place], [address], 09/16/2023 18:40:26 SARS CoV 2 RNA (COVID-19 ), QL, certified rehabilitation counselor-PCR, respirato ry specimen 2022 023 [facility] ([facility]), [address] [place] [address] [place], [address], 09/18/2023 09:42:12 lipid panel, serum 2022 023 [facility], [address] [place] [address], [address], 10/13/2023 15:36:23 jan screen, serum [address] [facility], [address] [place] [address], [address], 10/27/2023 08:28:57 dsDNA Ab, serum [address] [facility], [address] [place] [address], [address], 10/27/2023 08:28:57 BMP, serum or plasma 2022 023 [facility], [address] [place] [address], [address], 10/13/2023 15:22:19 TSH, serum or plasma [address] [facility], [address] [place] [address], [address], 10/27/2023 08:28:57 lipid panel, serum 2023 024 [facility] (Registration ), [address] [place] [address] [place], [address], 02/11/2024 13:04:39 Referral pain managemen t referral 2023 024 haile Robles DO, [address] [place] [address] , [address], [place], [address], 06/20/2024 11:36:28 Procedures None recorded. Surgeries None recorded. Imaging cardiac stress test - nuclear stress test 2022 023 [email or web address] [facility], [address] [place] [address], [address], 05/01/2024 14:36:57 US, abdomen, limited - Suspected R inguinal hernia, not appreciat ed on exam today. 2023 024 [email or web address] [facility] (Radiology), [address] [place] [address] [place], [address], 12/10/2023 10:54:22 Medication Orders baclofen 10 mg tablet 2022 023 [id number], [address], [place], [id number], 10/07/2023 15:14:32 Emgality Pen 120 mg/mL subcutane ous pen injector 2023 024 [facility] #[id number], [address], [place], [place], [id number], 02/12/2024 07:17:48 baclofen 10 mg tablet 2023 024 [facility] #[id number], [address], [place], [place], [id number], 02/12/2024 07:17:49 Xarelto 20 mg tablet 2023 024 [facility], [address] [place] [address], [address], [place], [address], 05/16/2024 16:23:10 finasteri de 5 mg tablet 2023 024 [facility] #[id number], [address], [place], [place], [id number], 05/16/2024 16:14:55 Patient TargetsNo targets recorded. Patient Instructions Encounter Date Encounter Id Patient Instructions Last Modified By Organization Details Last Modified Time 09/16/2023 [id number] 1. your Rapid COVID and flu test are negative here today. COVID PCR sent for confirmatory measures will be back either later today or tomorrow. These results will be communicated as soon as they become available. 2. Your rapid strep is negative and thus a throat culture is sent for confirmatory measures. This will take 2 days to fully resolve and we will contact you when it is available. 3. Lung exam today is reassuring without signs of pneumonia or wheeze. 4. Please continue to monitor your symptoms as we await test results to return. We will check in with you tomorrow and the next day to review results and see how you are doing. If you develop any new or worsening concerning symptoms please seek follow-up as needed. 5. Work note has been provided. [email or web address] Not available 09/16/2023 17:13:45 Reason for Referral General Surgeon Referral for Tenderness of right lower quadrant of abdomen Referring Physician: Radha Kincaid [facility], Encounter Date: 12/16/2023 Pain Management Referral for Pain of right knee joint Previously seen by Dr. Robles at [facility] - they recommended a geniculate nerve block - ready to do Referring Physician: Radha Kincaid [facility], Encounter Date: 02/10/2024 Auto Glass Technician Referral fo r Bleeding from nose Referring Physician: Radha Kincaid [facility], Encounter Date: 02/22/2024 Results Created Date Observation Date Name Description Value Unit Range Abnormal Flag Note LastModifiedBy Organization Detail LastModifiedTime 09/16/2009/16/2023 influ jesus manuel virus A + B + SARS- CoV-2 (COVI D19) Ag panel , rapid IA, upper respi rator y speci men Influenza A negati ve Not Available [address], [place], [address], 09/16/2023 16:49:22 09/16/20 23 09/16/2023 influ jesus manuel virus A + B + SARS- CoV-2 (COVI D19) Ag panel , rapid IA, upper respi rator y speci men Influenza B negati ve Not Available [address], [place], [address], 09/16/2023 16:49:22 09/16/20 23 09/16/2023 influ jesus manuel virus A + B + SARS- CoV-2 (COVI D19) Ag panel , rapid IA, upper respi rator y speci men SARS-COV-2 negati ve Not Available [address], [place], [address], 09/16/2023 16:49:22 09/16/20 23 09/16/2023 rapid strep group A, throa t Strep negati ve Not Available [address], [place], [address], 09/16/2023 16:42:35 09/16/2009/16/2023 SARS CoV 2 RNA (COVI D-19) , QL, certified rehabilitation counselor-P CR, respi rator y speci men [id number] negati ve negati ve Not Available Not Available 06/02/2024 06:04:47 10/13/20 23 10/13/2023 BASIC METAB OLIC PANEL (BMP) glucose 92 mg/dL 70 - 116 Not Available [facility] (Lab) [address] [place] [address], [address], 10/13/2023 15:22:19 10/13/20 23 10/13/2023 BASIC METAB OLIC PANEL (BMP) BUN 21 mg/dL 6 - 25 Not Available [facility] (Lab) [address] [place] [address], [address], 10/13/2023 15:22:19 10/13/20 23 10/13/2023 BASIC METAB OLIC PANEL (BMP) creatinine 1.17 mg/dL 0.67 - 1.17 Not Available [facility] (Lab) [address] [place] [address], [address], 10/13/2023 15:22:19 10/13/20 23 10/13/2023 BASIC METAB OLIC PANEL (BMP) sodium serum 139 mmol/ L 136 - 145 Not Available [facility] (Lab) [address] [place] [address], [address], 10/13/2023 15:22:19 10/13/20 23 10/13/2023 BASIC METAB OLIC PANEL (BMP) potassium serum 4.6 mmol/ L 3.4 - 5.2 Not Available [facility] (Lab) [address] [place] [address], [address], 10/13/2023 15:22:19 10/13/20 23 10/13/2023 BASIC METAB OLIC PANEL (BMP) chloride serum 104 mmol/ L 96 - 110 Not Available [facility] (Lab) [address] [place] [address], 387[address], 10/13/2023 15:22:19 10/13/20 23 10/13/2023 BASIC METAB OLIC PANEL (BMP) carbon dioxide (co2) 28 mmol/ L 22 - 34 Not Available [facility] (Lab) [address] [place] [address], 134[address], 10/13/2023 15:22:19 10/13/20 23 10/13/2023 BASIC METAB OLIC PANEL (BMP) anion gap 7.5 mmol/ L Not Available [facility] (Lab) [address] [place] [address], [address], 10/13/2023 15:22:19 10/13/20 23 10/13/2023 BASIC METAB OLIC PANEL (BMP) calcium serum 9.5 mg/dL 8.2 - 10.2 Not Available [facility] (Lab) [address] [place] [address], [address], 10/13/2023 15:22:19 10/13/20 23 10/13/2023 BASIC METAB OLIC PANEL (BMP) age 73 years Not Available [facility] (Lab) [address] [place] [address], [address], 10/13/2023 15:22:19 10/13/20 23 10/13/2023 BASIC METAB OLIC PANEL (BMP) eGFR (non-afr.melinda r.) 61 mL/mi n Not Available [facility] (Lab) [address] [place] [address], [address], 10/13/2023 15:22:19 10/13/20 23 10/13/2023 BASIC METAB OLIC PANEL (BMP) eGFR (afr-eron n) 74 mL/mi n eGFR <60 ml/mi n for >=3 month s is indic ative of chron ic kidne y The eGFR calcu lated using the MDRD Study equat ion is valid ated non hospi taliz ed patie nts 18 to 70 years of age and is not rep patie nts less than 18 years of age. Not Available [facility] (Lab) [address] [place] [address], [address], 10/13/2023 15:22:19 10/13/20 23 10/13/2023 TSH THYRO ID STIMU LATIN G HORMO NE* TSH 2.047 uIU/m L 0.360 - 3.740 Not Available [facility] (Lab) [address] [place] [address], [address]59[address], 10/13/2023 15:22:21 10/13/20 23 10/13/2023 LIPID PANEL * fasting status: NON FASTIN G Not Available [facility] (Lab) [address] [place] [address], [address], 10/13/2023 15:36:23 10/13/20 23 10/13/2023 LIPID PANEL * cholesterol 163 mg/dL 0 - 200 Not Available [facility] (Lab) [address] [place] [address], 09102, 10/13/2023 15:36:23 10/13/20 23 10/13/2023 LIPID PANEL * triglyceride s 76 mg/dL 56 - 240 Not Available [facility] (Lab) [address] [place] [address], 91731, 10/13/2023 15:36:23 10/13/20 23 10/13/2023 LIPID PANEL * HDL 60 mg/dL 30 - 74 Not Available [facility] (Lab) [address] [place] [address], 644[address], 10/13/2023 15:36:23 10/13/20 23 10/13/2023 LIPID PANEL * non-HDL-C 103 mg/dL 0 - 160 Not Available [facility] (Lab) [address] [place] [address], 18834, 10/13/2023 15:36:23 10/13/20 23 10/13/2023 LIPID PANEL * LDL (calc) 88 mg/dL 0 - 130 Not Available [facility] (Lab) [address] [place] [address], 10948, 10/13/2023 15:36:23 10/13/20 23 10/13/2023 LIPID PANEL * % HDL 36.8 % Not Available [facility] (Lab) [address] [place] [address], 70168, 10/13/2023 15:36:23 10/13/20 23 10/13/2023 LIPID PANEL * chol/HDL ratio 2.7 0.0 - 4.9 Not Available [facility] (Lab) [address] [place] [address], 94786, 10/13/2023 15:36:23 10/13/20 23 10/13/2023 LIPID PANEL * CHD relative risk 0.5 x_avg 0.0 - 1.0 Not Available [facility] (Lab) [address] [place] [address], 969[address], 10/13/2023 15:36:23 10/13/20 23 10/13/2023 LIPID PANEL * LDL/HDL ratio 1.5 0.0 - 3.5 Not Available [facility] (Lab) [address] [place] [address], 37076, 10/13/2023 15:36:23 10/13/20 23 10/13/2023 LIPID PANEL * CHD relative risk. 0.4 x_avg 0.0 - 1.0 non-H DL-C and LDL(C ALC) refer ence range s refle ct NCEP ATP III recom menda tions for moder ate risk patie nts Not Available [facility] (Lab) [address] [place] [address], [address], 10/13/2023 15:36:23 10/13/20 23 10/15/2023 ANTI JAN PANEL * anti jan panel* _ANTI JAN (RELAY MOTORMAN) _ Ab to Extra ctabl e Nucle ar Ag Rigo Anup Repor ronaldo: 10/14 16:16 Statu s=F ----- ----- ----- ----- ----- ----- ----- ----- ----- ----- ----- ----- ----- ----- ----- ----- TEST RESUL T FLAG RANGE UNITS ----- ----- ----- ----- ----- ----- ----- ----- ----- ----- ----- ----- ----- ----- ----- ----- SS-A/ Ro Ab, IgG, S 0.2 U 10/14.1 720.Nala T .3361 0-7 ----- ----- ----- ----R EFERE NCE VALUE ----- ----- ----- ----- ----- - <1.0 (Nega tive) SS-B/ La Ab, IgG, S <0.2 U 10/14.1 SET.Nala T .3361 3-1 ----- ----- ----- ----R EFERE NCE VALUE ----- ----- ----- ----- ----- - <1.0 (Nega tive) Sm Ab, IgG, S <0.2 U 10/14.1 SET.Nala T .183 3-6 ----- ----- ----- ----R EFERE NCE VALUE ----- ----- ----- ----- ----- - <1.0 (Nega tive) RELAY MOTORMAN Ab, IgG, S 0.2 U 10/14.1 720.Nala T .2995 8-6 ----- ----- ----- ----R EFERE NCE VALUE ----- ----- ----- ----- ----- - <1.0 (Nega tive) Scl 70 Ab, IgG, S <0.2 U 10/14.1 720.Nala T .4732 2-3 ----- ----- ----- ----R EFERE NCE VALUE ----- ----- ----- ----- ----- - <1.0 (Nega tive) Magdalena 1 Ab, IgG, S <0.2 U 10/14.1 720.Nala T .3357 1-1 ----- ----- ----- ----R EFERE NCE VALUE ----- ----- ----- ----- ----- - <1.0 (Nega tive) Test Perfo rmed by: [facility] [address], [place] [address] Lab Direc tor: Selwyn Vázquez Ph.D. ; CLIA# [id number] Not Available [facility] (Lab) [address] [place] [address], [address], 10/15/2023 08:53:23 10/13/20 23 10/19/2023 ANTI DNA (DOUB LE STRAN DED) anti DNA (double stranded) _ANTI DNA (DOUB LE STRAN DED)_ Doubl e Stran ded DNA Antib cheryl, IgG Repor ronaldo: 10/19 14:18 Statu s=F ----- ----- ----- ----- ----- ----- ----- ----- ----- ----- ----- ----- ----- ----- ----- ----- TEST RESUL T FLAG RANGE UNITS ----- ----- ----- ----- ----- ----- ----- ----- ----- ----- ----- ----- ----- ----- ----- ----- dsDNA <22.0 <27.0 IU/mL 10/19.1 425.r fl.CO MPLET E.MAY T Negat sakshi: <27.0 IU/mL Indet ermin ate: 27.0 - 35.0 IU/mL Posit sakshi: >35.0 IU/mL Resul ts were obtai gera with Werfe n QUANT A Flash dsDNA chemi lumin escen t immun oassa y. Value s obtai gera with diffe rent shannen actur ers' assay metho ds may not be used inter [facility] . Test perfo rmed or refer red by [facility] [address], [place] [address] Not Available [facility] (Lab) [address] [place] [address], [address], 10/19/2023 15:33:21 12/25/19 24 12/25/2023 CBC W/ DIFFE RENTI AL* WBC 9.09 TH/cm m 5.00 - 10.00 Not Available [facility] (Lab) [address] [place] [address], [address]12, 12/25/2023 00:23:12 12/25/19 24 12/25/2023 CBC W/ DIFFE RENTI AL* neut % 87.6 % 40.0 - 80.0 high Not Available [facility] (Lab) [address] [place] [address], 58105, 12/25/2023 00:23:12 12/25/19 24 12/25/2023 CBC W/ DIFFE RENTI AL* lymph % 5.6 % 10.0 - 50.0 low Not Available [facility] (Lab) [address] [place] [address], 56036, 12/25/2023 00:23:12 12/25/19 24 12/25/2023 CBC W/ DIFFE RENTI AL* mono % 5.6 % 2.0 - 12.0 Not Available [facility] (Lab) [address] [place] [address], [address]15, 12/25/2023 00:23:12 12/25/1912/25/2023 CBC W/ DIFFE RENTI AL* eos % 0.0 % 0.0 - 8.0 Not Available [facility] (Lab) [address] [place] [address], 71358, 12/25/2023 00:23:12 12/25/19 24 12/25/2023 CBC W/ DIFFE RENTI AL* baso % 0.2 % 0.0 - 3.0 Not Available [facility] (Lab) [address] [place] [address], 45006, 12/25/2023 00:23:12 12/25/19 24 12/25/2023 CBC W/ DIFFE RENTI AL* Ig % 1.0 % 0.0 - 1.1 Not Available [facility] (Lab) [address] [place] [address], 92538, 12/25/2023 00:23:12 12/25/19 24 12/25/2023 CBC W/ DIFFE RENTI AL* NRBC % 0.0 % 0.0 - 0.0 Not Available [facility] (Lab) [address] [place] [address], 57161, 12/25/2023 00:23:12 12/25/19 24 12/25/2023 CBC W/ DIFFE RENTI AL* neut abs count 8.0 TH/cm m 1.6 - 8.4 Not Available [facility] (Lab) [address] [place], [address], 12/25/2023 00:23:12 12/25/19 24 12/25/2023 CBC W/ DIFFE RENTI AL* lymph abs count 0.5 TH/cm m 1.5 - 4.0 low Not Available [facility] (Lab) [address] [place] [address], 97778, 12/25/2023 00:23:12 12/25/19 24 12/25/2023 CBC W/ DIFFE RENTI AL* mono abs count 0.5 TH/cm m 0.2 - 1.0 Not Available [facility] (Lab) [address] [place] [address], 28066, 12/25/2023 00:23:12 12/25/19 24 12/25/2023 CBC W/ DIFFE RENTI AL* eos abs count 0.0 TH/cm m 0.0 - 0.5 Not Available [facility] (Lab) [address] [place] [address], 40060, 12/25/2023 00:23:12 12/25/19 24 12/25/2023 CBC W/ DIFFE RENTI AL* baso abs count 0.0 TH/cm m 0.0 - 0.2 Not Available [facility] (Lab) [address] [place] [address], 57347, 12/25/2023 00:23:12 12/25/19 24 12/25/2023 CBC W/ DIFFE RENTI AL* Ig abs count 0.1 TH/cm m 0.0 - 0.1 Not Available [facility] (Lab) [address] [place] [address], 55251, 12/25/2023 00:23:12 12/25/19 24 12/25/2023 CBC W/ DIFFE RENTI AL* NRBC abs count 0.0 mil/c mm 0.0 - 0.0 Not Available [facility] (Lab) [address] [place], [address], 12/25/2023 00:23:12 12/25/1912/25/2023 CBC W/ DIFFE RENTI AL* RBC 4.96 mil/c mm 4.30 - 6.20 Not Available [facility] (Lab) [address] [place] [address], 42896, 12/25/2023 00:23:12 12/25/19 24 12/25/2023 CBC W/ DIFFE RENTI AL* hemoglobin 15.7 gm/dL 13.0 - 17.0 Not Available [facility] (Lab) [address] [place] [address], 30006, 12/25/2023 00:23:12 12/25/1912/25/2023 CBC W/ DIFFE RENTI AL* hematocrit 46 % 45 - 52 Not Available [facility] (Lab) [address] [place] [address], 36394, 12/25/2023 00:23:12 12/25/1912/25/2023 CBC W/ DIFFE RENTI AL* MCV 92 fL 82 - 92 Not Available [facility] (Lab) [address] [place] [address], 40941, 12/25/2023 00:23:12 12/25/1912/25/2023 CBC W/ DIFFE RENTI AL* MCH 31.7 pg 27.0 - 31.0 high Not Available [facility] (Lab) [address] [place] [address], 56669, 12/25/2023 00:23:12 12/25/19 24 12/25/2023 CBC W/ DIFFE RENTI AL* MCHC 34.4 % 32.0 - 36.0 Not Available [facility] (Lab) [address] [place] [address], 39820, 12/25/2023 00:23:12 12/25/19 24 12/25/2023 CBC W/ DIFFE RENTI AL* RDW-SD 40.3 fL 39.0 - 49.0 Not Available [facility] (Lab) [address] [place], [address], 12/25/2023 00:23:12 12/25/19 24 12/25/2023 CBC W/ DIFFE RENTI AL* platelet count 128 TH/cm m 150 - 450 low -PREL IMINA RY-RE PORT: 12/25 0021 Not Available [facility] (Lab) [address] [place] [address], 15249, 12/25/2023 00:23:12 12/25/19 24 12/25/2023 LACTI C ACID lactic acid 2.6 mmol/ L 0.7 - 2.1 high Not Available [facility] (Lab) [address] [place] [address], 08756, 12/25/2023 00:36:13 12/25/19 24 12/25/2023 COMPR EHENS SAKSHI METAB OLIC PANEL (CMP) glucose 198 mg/dL 70 - 116 high Not Available [facility] (Lab) [address] [place] [address], 93261, 12/25/2023 00:36:14 12/25/19 24 12/25/2023 COMPR EHENS SAKSHI METAB OLIC PANEL (CMP) BUN 33 mg/dL 6 - 25 high Not Available [facility] (Lab) [address] [place] [address], 08878, 12/25/2023 00:36:14 12/25/19 24 12/25/2023 COMPR EHENS SAKSHI METAB OLIC PANEL (CMP) creatinine 1.45 mg/dL 0.67 - 1.17 high Not Available [facility] (Lab) [address] [place] [address], 33013, 12/25/2023 00:36:14 12/25/19 24 12/25/2023 COMPR EHENS SAKSHI METAB OLIC PANEL (CMP) sodium serum 135 mmol/ L 136 - 145 low Not Available [facility] (Lab) [address] [place] [address], 13497, 12/25/2023 00:36:14 12/25/19 24 12/25/2023 COMPR EHENS SAKSHI METAB OLIC PANEL (CMP) potassium serum 4.5 mmol/ L 3.4 - 5.2 Not Available [facility] (Lab) [address] [place] [address], 49168, 12/25/2023 00:36:14 12/25/19 24 12/25/2023 COMPR EHENS SAKSHI METAB OLIC PANEL (CMP) chloride serum 101 mmol/ L 96 - 110 Not Available [facility] (Lab) [address] [place] [address], 09646, 12/25/2023 00:36:14 12/25/19 24 12/25/2023 COMPR EHENS SAKSHI METAB OLIC PANEL (CMP) carbon dioxide (co2) 29 mmol/ L 22 - 34 Not Available [facility] (Lab) [address] [place] [address], 06470, 12/25/2023 00:36:14 12/25/19 24 12/25/2023 COMPR EHENS SAKSHI METAB OLIC PANEL (CMP) anion gap 5.3 mmol/ L Not Available [facility] (Lab) [address] [place] [address], 41060, 12/25/2023 00:36:14 12/25/19 24 12/25/2023 COMPR EHENS SAKSHI METAB OLIC PANEL (CMP) calcium serum 9.2 mg/dL 8.2 - 10.2 Not Available [facility] (Lab) [address] [place] [address], 23590, 12/25/2023 00:36:14 12/25/19 24 12/25/2023 COMPR EHENS SAKSHI METAB OLIC PANEL (CMP) bilirubin total 0.6 mg/dL 0.0 - 1.3 Not Available [facility] (Lab) [address] [place], [address], 12/25/2023 00:36:14 12/25/19 24 12/25/2023 COMPR EHENS SAKSHI METAB OLIC PANEL (CMP) alk. phos. 123 U/L 46 - 116 high Not Available [facility] (Lab) [address] [place] [address], 64204, 12/25/2023 00:36:14 12/25/19 24 12/25/2023 COMPR EHENS SAKSHI METAB OLIC PANEL (CMP) SGOT (AST) 33 U/L 15 - 37 Not Available [facility] (Lab) [address] [place] [address], 38011, 12/25/2023 00:36:14 12/25/19 24 12/25/2023 COMPR EHENS SAKSHI METAB OLIC PANEL (CMP) SGPT (ALT) 30 U/L 12 - 78 Not Available [facility] (Lab) [address] [place] [address], 66216, 12/25/2023 00:36:14 12/25/19 24 12/25/2023 COMPR EHENS SAKSHI METAB OLIC PANEL (CMP) total protein 7.2 gm/dL 6.0 - 8.0 Not Available [facility] (Lab) [address] [place] [address], 19833, 12/25/2023 00:36:14 12/25/19 24 12/25/2023 COMPR EHENS SAKSHI METAB OLIC PANEL (CMP) albumin 3.8 gm/dL 3.4 - 5.0 Not Available [facility] (Lab) [address] [place] [address], 85819, 12/25/2023 00:36:14 12/25/19 24 12/25/2023 COMPR EHENS SAKSHI METAB OLIC PANEL (CMP) age 73 years Not Available [facility] (Lab) [address] [place] [address], 53888, 12/25/2023 00:36:14 12/25/19 24 12/25/2023 COMPR EHENS SAKSHI METAB OLIC PANEL (CMP) eGFR (non-afr.melinda r.) 48 mL/mi n Not Available [facility] (Lab) [address] [place] [address], 75598, 12/25/2023 00:36:14 12/25/19 24 12/25/2023 COMPR EHENS SAKSHI METAB OLIC PANEL (CMP) eGFR (afr-eron n) 58 mL/mi n eGFR <60 ml/mi n for >=3 month s is indic ative of chron ic kidne y The eGFR calcu lated using the MDRD Study equat ion is valid ated non hospi taliz ed patie nts 18 to 70 years of age and is not rep patie nts less than 18 years of age. Not Available [facility] (Lab) [address] [place], [address], 12/25/2023 00:36:14 12/25/19 24 12/25/2023 LIPAS E* NEW lipase. 43 U/L 16 - 77 Not Available [facility] (Lab) [address] [place] [address], 82549, 12/25/2023 00:36:15 12/25/19 24 12/25/2023 CBC W/ DIFFE RENTI AL* WBC 9.09 TH/cm m 5.00 - 10.00 Not Available [facility] (Lab) [address] [place], [address], 12/25/2023 00:47:14 12/25/19 24 12/25/2023 CBC W/ DIFFE RENTI AL* neut % 87.6 % 40.0 - 80.0 high Not Available [facility] (Lab) [address] [place] [address], [id number], 12/25/2023 00:47:14 02/24/12/25/2023 CBC W/ DIFFE RENTI AL* lymph % 5.6 % 10.0 - 50.0 low Not Available [facility] (Lab) [address] [place] [address], [id number], 12/25/2023 00:47:14 12/25/19 24 12/25/2023 CBC W/ DIFFE RENTI AL* mono % 5.6 % 2.0 - 12.0 Not Available [facility] (Lab) [address] [place] [address], [id number], 12/25/2023 00:47:14 12/25/1912/25/2023 CBC W/ DIFFE RENTI AL* eos % 0.0 % 0.0 - 8.0 Not Available [facility] (Lab) [address] [place] [address], [id number], 12/25/2023 00:47:14 12/25/1912/25/2023 CBC W/ DIFFE RENTI AL* baso % 0.2 % 0.0 - 3.0 Not Available [facility] (Lab) [address] [place] [address], [id number], 12/25/2023 00:47:14 12/25/19 24 12/25/2023 CBC W/ DIFFE RENTI AL* Ig % 1.0 % 0.0 - 1.1 Not Available [facility] (Lab) [address] [place] [address], [id number], 12/25/2023 00:47:14 12/25/19 24 12/25/2023 CBC W/ DIFFE RENTI AL* NRBC % 0.0 % 0.0 - 0.0 Not Available [facility] ([facility]) [address] [place] [address], [address], 12/25/2023 00:47:14 12/25/19 24 12/25/2023 CBC W/ DIFFE RENTI AL* neut abs count 8.0 TH/cm m 1.6 - 8.4 Not Available [facility] (Lab) [address] [place], [address], 12/25/2023 00:47:14 12/25/19 24 12/25/2023 CBC W/ DIFFE RENTI AL* lymph abs count 0.5 TH/cm m 1.5 - 4.0 low Not Available [facility] (Lab) [address] [place] [address], 48442, 12/25/2023 00:47:14 12/25/19 24 12/25/2023 CBC W/ DIFFE RENTI AL* mono abs count 0.5 TH/cm m 0.2 - 1.0 Not Available [facility] (Lab) [address] [place] [address], 79569, 12/25/2023 00:47:14 12/25/19 24 12/25/2023 CBC W/ DIFFE RENTI AL* eos abs count 0.0 TH/cm m 0.0 - 0.5 Not Available [facility] (Lab) [address] [place] [address], 01147, 12/25/2023 00:47:14 12/25/19 24 12/25/2023 CBC W/ DIFFE RENTI AL* baso abs count 0.0 TH/cm m 0.0 - 0.2 Not Available [facility] (Lab) [address] [place] [address], 12862, 12/25/2023 00:47:14 12/25/19 24 12/25/2023 CBC W/ DIFFE RENTI AL* Ig abs count 0.1 TH/cm m 0.0 - 0.1 Not Available [facility] (Lab) [address] [place] [address], 34929, 12/25/2023 00:47:14 12/25/19 24 12/25/2023 CBC W/ DIFFE RENTI AL* NRBC abs count 0.0 mil/c mm 0.0 - 0.0 Not Available [facility] (Lab) [address] [place] [address], 31942, 12/25/2023 00:47:14 12/25/1912/25/2023 CBC W/ DIFFE RENTI AL* RBC 4.96 mil/c mm 4.30 - 6.20 Not Available [facility] (Lab) [address] [place] [address], 35338, 12/25/2023 00:47:14 12/25/19 24 12/25/2023 CBC W/ DIFFE RENTI AL* hemoglobin 15.7 gm/dL 13.0 - 17.0 Not Available [facility] (Lab) [address] [place] [address], 89978, 12/25/2023 00:47:14 12/25/1912/25/2023 CBC W/ DIFFE RENTI AL* hematocrit 46 % 45 - 52 Not Available [facility] (Lab) [address] [place] [address], 99587, 12/25/2023 00:47:14 12/25/1912/25/2023 CBC W/ DIFFE RENTI AL* MCV 92 fL 82 - 92 Not Available [facility] (Lab) [address] [place] [address], 94548, 12/25/2023 00:47:14 12/25/1912/25/2023 CBC W/ DIFFE RENTI AL* MCH 31.7 pg 27.0 - 31.0 high Not Available [facility] (Lab) [address] [place] [address], 80346, 12/25/2023 00:47:14 12/25/1912/25/2023 CBC W/ DIFFE RENTI AL* MCHC 34.4 % 32.0 - 36.0 Not Available [facility] (Lab) [address] [place] [address], 05288, 12/25/2023 00:47:14 12/25/19 24 12/25/2023 CBC W/ DIFFE RENTI AL* RDW-SD 40.3 fL 39.0 - 49.0 Not Available [facility] (Lab) [address] [place] [address], 60439, 12/25/2023 00:47:14 12/25/19 24 12/25/2023 CBC W/ DIFFE RENTI AL* platelet count 128 TH/cm m 150 - 450 low Not Available [facility] (Lab) [address] [place] [address], 51643, 12/25/2023 00:47:14 12/25/19 24 12/25/2023 CBC W/ DIFFE RENTI AL* atyp lymphs 1+ Not Available [facility] (Lab) [address] [place] [address], 11323, 12/25/2023 00:47:14 12/25/19 24 12/25/2023 CBC W/ DIFFE RENTI AL* toxic gran 1+ Not Available [facility] (Lab) [address] [place] [address], 60309, 12/25/2023 00:47:14 12/25/19 24 12/25/2023 CBC W/ DIFFE RENTI AL* vaccuol neutr 1+ Not Available [facility] (Lab) [address] [place] [address], 87858, 12/25/2023 00:47:14 12/25/19 24 12/25/2023 CBC W/ DIFFE RENTI AL* smudge cells 1+ Not Available [facility] (Lab) [address] [place] [address], 38961, 12/25/2023 00:47:14 12/25/19 24 12/25/2023 CBC W/ DIFFE RENTI AL* giant plts presen t -PREL IMINA RY-RE PORT: 12/25 0021 -NICO L Not Available [facility] (Lab) [address] [place] [address], 97769, 12/25/2023 00:47:14 12/25/19 24 12/25/2023 URINA LYSIS WITH MICRO SCOPI C* collection mode: CLEAN CATCH Not Available [facility] (Lab) [address] [place], [address], 12/25/2023 01:02:57 12/25/19 24 12/25/2023 URINA LYSIS WITH MICRO SCOPI C* color YELLOW yellow Not Available [facility] (Lab) [address] [place], [address], 12/25/2023 01:02:57 12/25/19 24 12/25/2023 URINA LYSIS WITH MICRO SCOPI C* appearance CLEAR clear Not Available [facility] (Lab) [address] [place] [address], 88137, 12/25/2023 01:02:57 12/25/19 24 12/25/2023 URINA LYSIS WITH MICRO SCOPI C* glucose urine 100 negati ve mg/dL abnormal Not Available [facility] (Lab) [address] [place] [address], 38119, 12/25/2023 01:02:57 12/25/19 24 12/25/2023 URINA LYSIS WITH MICRO SCOPI C* bilirubin NEGATI VE negati ve Not Available [facility] (Lab) [address] [place] [address], 25298, 12/25/2023 01:02:57 12/25/19 24 12/25/2023 URINA LYSIS WITH MICRO SCOPI C* ketones NEGATI VE negati ve mg/dL Not Available [facility] (Lab) [address] [place] [address], 58411, 12/25/2023 01:02:57 12/25/19 24 12/25/2023 URINA LYSIS WITH MICRO SCOPI C* spec gravity 1.020 1.003 - 1.030 Not Available [facility] (Lab) [address] [place] [address], 69329, 12/25/2023 01:02:57 12/25/19 24 12/25/2023 URINA LYSIS WITH MICRO SCOPI C* pH urine 6.0 5.0 - 7.0 Not Available [facility] (Lab) [address] [place] [address], 01306, 12/25/2023 01:02:57 12/25/19 24 12/25/2023 URINA LYSIS WITH MICRO SCOPI C* protein NEGATI VE negati ve mg/dL Not Available [facility] (Lab) [address] [place] [address], 62330, 12/25/2023 01:02:57 12/25/19 24 12/25/2023 URINA LYSIS WITH MICRO SCOPI C* urobilinogen 0.2 <or= 1 eu/dL Not Available [facility] (Lab) [address] [place] [address], 62334, 12/25/2023 01:02:57 12/25/19 24 12/25/2023 URINA LYSIS WITH MICRO SCOPI C* nitrite NEGATI VE negati ve Not Available [facility] (Lab) [address] [place] [address], 68371, 12/25/2023 01:02:57 12/25/19 24 12/25/2023 URINA LYSIS WITH MICRO SCOPI C* blood TRACE- LY negati ve abnormal Not Available [facility] (Lab) [address] [place] [address], 70074, 12/25/2023 01:02:57 12/25/19 24 12/25/2023 URINA LYSIS WITH MICRO SCOPI C* leukocytes NEGATI VE negati ve Not Available [facility] (Lab) [address] [place] [address], 73508, 12/25/2023 01:02:57 12/25/19 24 12/25/2023 URINA LYSIS WITH MICRO SCOPI C* WBCs none 0-5 / hpf Not Available [facility] (Lab) [address] [place], [address], 12/25/2023 01:02:57 12/25/19 24 12/25/2023 URINA LYSIS WITH MICRO SCOPI C* RBCs 5-10 0-5 / hpf Not Available [facility] (Lab) [address] [place] [address], 07798, 12/25/2023 01:02:57 12/25/19 24 12/25/2023 URINA LYSIS WITH MICRO SCOPI C* epith cells 0-5 0-5 / hpf Not Available [facility] (Lab) [address] [place] [address], 36923, 12/25/2023 01:02:57 12/25/19 24 12/25/2023 URINA LYSIS WITH MICRO SCOPI C* cell types squamo us Not Available [facility] (Lab) [address] [place] [address], 59677, 12/25/2023 01:02:57 12/25/19 24 12/25/2023 URINA LYSIS WITH MICRO SCOPI C* crystals none none Not Available [facility] (Lab) [address] [place] [address], 37239, 12/25/2023 01:02:57 12/25/19 24 12/25/2023 URINA LYSIS WITH MICRO SCOPI C* bacteria minima l none Not Available [facility] (Lab) [address] [place] [address], 91061, 12/25/2023 01:02:57 12/25/19 24 12/25/2023 URINA LYSIS WITH MICRO SCOPI C* mucus none none Not Available [facility] (Lab) [address] [place] [address], 24903, 12/25/2023 01:02:57 12/25/19 24 12/25/2023 URINA LYSIS WITH MICRO SCOPI C* casts none none /lpf Not Available [facility] (Lab) [address] [place], [address], 12/25/2023 01:02:57 12/25/19 24 12/25/2023 LACTI C ACID lactic acid 2.3 mmol/ L 0.7 - 2.1 high Not Available [facility] (Lab) [address] [place], [address], 12/25/2023 02:28:02 01/15/20 24 01/15/2024 BASIC METAB OLIC PANEL (BMP) glucose 152 mg/dL 70 - 116 high { COMME NT: *Spec imen- is-sl ightl y-hem olyze d . Not Available [facility] (Lab) [address] [place] [address], 84746, 01/15/2024 22:46:56 01/15/20 24 01/15/2024 BASIC METAB OLIC PANEL (BMP) BUN 27 mg/dL 6 - 25 high Not Available [facility] (Lab) [address] [place] [address], 78094, 01/15/2024 22:46:56 01/15/20 24 01/15/2024 BASIC METAB OLIC PANEL (BMP) creatinine 1.33 mg/dL 0.67 - 1.17 high Not Available [facility] (Lab) [address] [place] [address], 43943, 01/15/2024 22:46:56 01/15/20 24 01/15/2024 BASIC METAB OLIC PANEL (BMP) sodium serum 139 mmol/ L 136 - 145 Not Available [facility] (Lab) [address] [place] [address], 12329, 01/15/2024 22:46:56 01/15/20 24 01/15/2024 BASIC METAB OLIC PANEL (BMP) potassium serum 4.7 mmol/ L 3.4 - 5.2 Not Available [facility] (Lab) [address] [place] [address], 13570, 01/15/2024 22:46:56 01/15/20 24 01/15/2024 BASIC METAB OLIC PANEL (BMP) chloride serum 104 mmol/ L 96 - 110 Not Available [facility] (Lab) [address] [place], [address], 01/15/2024 22:46:56 01/15/20 24 01/15/2024 BASIC METAB OLIC PANEL (BMP) carbon dioxide (co2) 31 mmol/ L 22 - 34 Not Available [facility] (Lab) [address] [place] [address], 07295, 01/15/2024 22:46:56 01/15/20 24 01/15/2024 BASIC METAB OLIC PANEL (BMP) anion gap 4.3 mmol/ L Not Available [facility] (Lab) [address] [place] [address], 07995, 01/15/2024 22:46:56 01/15/20 24 01/15/2024 BASIC METAB OLIC PANEL (BMP) calcium serum 9.1 mg/dL 8.2 - 10.2 Not Available [facility] (Lab) [address] [place] [address], 68433, 01/15/2024 22:46:56 01/15/20 24 01/15/2024 BASIC METAB OLIC PANEL (BMP) age 73 years Not Available [facility] (Lab) [address] [place] [address], 03153, 01/15/2024 22:46:56 01/15/20 24 01/15/2024 BASIC METAB OLIC PANEL (BMP) eGFR (non-afr.melinda r.) 53 mL/mi n Not Available [facility] (Lab) [address] [place] [address], 02117, 01/15/2024 22:46:56 01/15/20 24 01/15/2024 BASIC METAB OLIC PANEL (BMP) eGFR (afr-eron n) 64 mL/mi n eGFR <60 ml/mi n for >=3 month s is indic ative of chron ic kidne y The eGFR calcu lated using the MDRD Study equat ion is valid ated non hospi taliz ed patie nts 18 to 70 years of age and is not rep patie nts less than 18 years of age. Not Available [facility] (Lab) [address] [place], [address], 01/15/2024 22:46:56 01/15/20 24 01/15/2024 LACTI C ACID lactic acid 1.7 mmol/ L 0.7 - 2.1 Not Available [facility] (Lab) [address] [place], [address], 01/15/2024 22:46:57 02/10/20 24 02/10/2024 LIPID 2 cholesterol 164 mg/dL <200 Not Available [address] [place], [address] 02/10/2024 19:32:16 02/10/20 24 02/10/2024 LIPID 2 triglyceride 91 mg/dL <150 Not Available [address] [place], [address] 02/10/2024 19:32:16 02/10/20 24 02/10/2024 LIPID 2 HDL cholesterol 56 mg/dL 40-60 Not Available [address] [place], [address] 02/10/2024 19:32:16 02/10/20 24 02/10/2024 LIPID 2 calculated LDL 90 mg/dL <100 Natio nal Maame stero l Educa tion Progr am (NCEP -ATPI II) class ifica tions : Maame stero l <200 mg/dL Jayant able Maame stero l 200-2 39 mg/dL Borde rline High Maame stero l >or=2 40 mg/dL High HDL <40 mg/dL Low HDL >or=6 0 mg/dL High LDL <100 mg/dL Optim al LDL 100-1 29 mg/dL Near Optim al/Ab ove Optim al LDL 130-1 59 mg/dL Armando briones High LDL 160-1 89 mg/dL High LDL >or=1 90 mg/dL Very High *The above refer ence range is for adult s 18 years or older . Not Available [facility] [address] [place], [address] 02/10/2024 19:32:16 03/15/20 24 03/15/2024 CBC W/ DIFFE RENTI AL* WBC 7.11 TH/cm m 5.00 - 10.00 Not Available [facility] (Lab) [address] [place] [address], 49127, 03/15/2024 14:54:39 03/15/20 24 03/15/2024 CBC W/ DIFFE RENTI AL* neut % 74.0 % 40.0 - 80.0 Not Available [facility] (Lab) [address] [place] [address], 76545, 03/15/2024 14:54:39 03/15/20 24 03/15/2024 CBC W/ DIFFE RENTI AL* lymph % 12.1 % 10.0 - 50.0 Not Available [facility] (Lab) [address] [place] [address], 35939, 03/15/2024 14:54:39 03/15/20 24 03/15/2024 CBC W/ DIFFE RENTI AL* mono % 11.1 % 2.0 - 12.0 Not Available [facility] (Lab) [address] [place] [address], 00586, 03/15/2024 14:54:39 03/15/20 24 03/15/2024 CBC W/ DIFFE RENTI AL* eos % 2.1 % 0.0 - 8.0 Not Available [facility] (Lab) [address] [place] [address], 67889, 03/15/2024 14:54:39 03/15/20 24 03/15/2024 CBC W/ DIFFE RENTI AL* baso % 0.6 % 0.0 - 3.0 Not Available [facility] (Lab) [address] [place] [address], 50256, 03/15/2024 14:54:39 03/15/20 24 03/15/2024 CBC W/ DIFFE RENTI AL* Ig % 0.1 % 0.0 - 1.1 Not Available [facility] (Lab) [address] [place] [address], 24151, 03/15/2024 14:54:39 03/15/20 24 03/15/2024 CBC W/ DIFFE RENTI AL* NRBC % 0.0 % 0.0 - 0.0 Not Available [facility] (Lab) [address] [place] [address], 44943, 03/15/2024 14:54:39 03/15/20 24 03/15/2024 CBC W/ DIFFE RENTI AL* neut abs count 5.3 TH/cm m 1.6 - 8.4 Not Available [facility] (Lab) [address] [place] [address], 99470, 03/15/2024 14:54:39 03/15/20 24 03/15/2024 CBC W/ DIFFE RENTI AL* lymph abs count 0.9 TH/cm m 1.5 - 4.0 low Not Available [facility] (Lab) [address] [place] [address], 23440, 03/15/2024 14:54:39 03/15/20 24 03/15/2024 CBC W/ DIFFE RENTI AL* mono abs count 0.8 TH/cm m 0.2 - 1.0 Not Available [facility] (Lab) [address] [place] [address], 03392, 03/15/2024 14:54:39 03/15/20 24 03/15/2024 CBC W/ DIFFE RENTI AL* eos abs count 0.2 TH/cm m 0.0 - 0.5 Not Available [facility] (Lab) [address] [place], [address], 03/15/2024 14:54:39 03/15/20 24 03/15/2024 CBC W/ DIFFE RENTI AL* baso abs count 0.0 TH/cm m 0.0 - 0.2 Not Available [facility] (Lab) [address] [place], [address], 03/15/2024 14:54:39 03/15/20 24 03/15/2024 CBC W/ DIFFE RENTI AL* Ig abs count 0.0 TH/cm m 0.0 - 0.1 Not Available [facility] (Lab) [address] [place], [address], 03/15/2024 14:54:39 03/15/20 24 03/15/2024 CBC W/ DIFFE RENTI AL* NRBC abs count 0.0 mil/c mm 0.0 - 0.0 Not Available [facility] (Lab) [address] [place], [address], 03/15/2024 14:54:39 03/15/20 24 03/15/2024 CBC W/ DIFFE RENTI AL* RBC 5.01 mil/c mm 4.30 - 6.20 Not Available [facility] (Lab) [address] [place] [address], 17249, 03/15/2024 14:54:39 03/15/20 24 03/15/2024 CBC W/ DIFFE RENTI AL* hemoglobin 15.9 gm/dL 13.0 - 17.0 Not Available [facility] (Lab) [address] [place] [address], 30988, 03/15/2024 14:54:39 03/15/20 24 03/15/2024 CBC W/ DIFFE RENTI AL* hematocrit 47 % 45 - 52 Not Available [facility] (Lab) [address] [place] [address], 68347, 03/15/2024 14:54:39 03/15/20 24 03/15/2024 CBC W/ DIFFE RENTI AL* MCV 93 fL 82 - 92 high Not Available [facility] (Lab) [address] [place], [address], 03/15/2024 14:54:39 03/15/20 24 03/15/2024 CBC W/ DIFFE RENTI AL* MCH 31.7 pg 27.0 - 31.0 high Not Available [facility] (Lab) [address] [place], [address], 03/15/2024 14:54:39 03/15/20 24 03/15/2024 CBC W/ DIFFE RENTI AL* MCHC 34.1 % 32.0 - 36.0 Not Available [facility] (Lab) [address] [place] [address], 82971, 03/15/2024 14:54:39 03/15/20 24 03/15/2024 CBC W/ DIFFE RENTI AL* RDW-SD 42.5 fL 39.0 - 49.0 Not Available [facility] (Lab) [address] [place] [address], 73266, 03/15/2024 14:54:39 03/15/20 24 03/15/2024 CBC W/ DIFFE RENTI AL* platelet count 101 TH/cm m 150 - 450 low Not Available [facility] (Lab) [address] [place] [address], 03371, 03/15/2024 14:54:39 03/15/20 24 03/15/2024 COMPR EHENS SAKSHI METAB OLIC PANEL (CMP) glucose 98 mg/dL 70 - 116 Not Available [facility] (Lab) [address] [place] [address], 00204, 03/15/2024 15:20:44 03/15/20 24 03/15/2024 COMPR EHENS SAKSHI METAB OLIC PANEL (CMP) BUN 24 mg/dL 6 - 25 Not Available [facility] (Lab) [address] [place], [address], 03/15/2024 15:20:44 03/15/20 24 03/15/2024 COMPR EHENS SAKSHI METAB OLIC PANEL (CMP) creatinine 1.34 mg/dL 0.67 - 1.17 high Not Available [facility] (Lab) [address] [place], [address], 03/15/2024 15:20:44 03/15/20 24 03/15/2024 COMPR EHENS SAKSHI METAB OLIC PANEL (CMP) sodium serum 139 mmol/ L 136 - 145 Not Available [facility] (Lab) [address] [place] [address], 79412, 03/15/2024 15:20:44 03/15/20 24 03/15/2024 COMPR EHENS SAKSHI METAB OLIC PANEL (CMP) potassium serum 4.3 mmol/ L 3.4 - 5.2 Not Available [facility] (Lab) [address] [place] [address], 94666, 03/15/2024 15:20:44 03/15/20 24 03/15/2024 COMPR EHENS SAKSHI METAB OLIC PANEL (CMP) chloride serum 104 mmol/ L 96 - 110 Not Available [facility] (Lab) [address] [place] [address], 50422, 03/15/2024 15:20:44 03/15/20 24 03/15/2024 COMPR EHENS SAKSHI METAB OLIC PANEL (CMP) carbon dioxide (co2) 32 mmol/ L 22 - 34 Not Available [facility] (Lab) [address] [place] [address], 19234, 03/15/2024 15:20:44 03/15/20 24 03/15/2024 COMPR EHENS SAKSHI METAB OLIC PANEL (CMP) anion gap 2.8 mmol/ L Not Available [facility] (Lab) [address] [place] [address], 72513, 03/15/2024 15:20:44 03/15/20 24 03/15/2024 COMPR EHENS SAKSHI METAB OLIC PANEL (CMP) calcium serum 9.6 mg/dL 8.2 - 10.2 Not Available [facility] (Lab) [address] [place], [address], 03/15/2024 15:20:44 03/15/20 24 03/15/2024 COMPR EHENS SAKSHI METAB OLIC PANEL (CMP) bilirubin total 1.0 mg/dL 0.0 - 1.3 Not Available [facility] (Lab) [address] [place], [address], 03/15/2024 15:20:44 03/15/20 24 03/15/2024 COMPR EHENS SAKSHI METAB OLIC PANEL (CMP) alk. phos. 104 U/L 46 - 116 Not Available [facility] (Lab) [address] [place], [address], 03/15/2024 15:20:44 03/15/20 24 03/15/2024 COMPR EHENS SAKSHI METAB OLIC PANEL (CMP) SGOT (AST) 34 U/L 15 - 37 Not Available [facility] (Lab) [address] [place] [address], 17348, 03/15/2024 15:20:44 03/15/20 24 03/15/2024 COMPR EHENS SAKSHI METAB OLIC PANEL (CMP) SGPT (ALT) 20 U/L 12 - 78 Not Available [facility] (Lab) [address] [place], [address], 03/15/2024 15:20:44 03/15/20 24 03/15/2024 COMPR EHENS SAKSHI METAB OLIC PANEL (CMP) total protein 7.3 gm/dL 6.0 - 8.0 Not Available [facility] (Lab) [address] [place] [address], 64687, 03/15/2024 15:20:44 03/15/20 24 03/15/2024 COMPR EHENS SAKSHI METAB OLIC PANEL (CMP) albumin 4.3 gm/dL 3.4 - 5.0 Not Available [facility] (Lab) [address] [place], [address], 03/15/2024 15:20:44 03/15/20 24 03/15/2024 COMPR EHENS SAKSHI METAB OLIC PANEL (CMP) age 73 years Not Available [facility] (Lab) [address] [place], [address], 03/15/2024 15:20:44 03/15/20 24 03/15/2024 COMPR EHENS SAKSHI METAB OLIC PANEL (CMP) eGFR (non-afr.melinda r.) 53 mL/mi n Not Available [facility] (Lab) [address] [place], [address], 03/15/2024 15:20:44 03/15/20 24 03/15/2024 COMPR EHENS SAKSHI METAB OLIC PANEL (CMP) eGFR (afr-eron n) 64 mL/mi n eGFR <60 ml/mi n for >=3 month s is indic ative of chron ic kidne y The eGFR calcu lated using the MDRD Study equat ion is valid ated non hospi taliz ed patie nts 18 to 70 years of age and is not rep patie nts less than 18 years of age. Not Available [facility] (Lab) [address] [place], [address], 03/15/2024 15:20:44 03/15/20 24 03/15/2024 TROPO SOURAV HIGH SENSI TIVIT Y* troponin hs 7.1 pg/mL 0.0 - 60.4 Not Available [facility] (Lab) [address] [place], [address], 03/15/2024 15:20:46 03/15/20 24 03/15/2024 TROPO SOURAV HIGH SENSI TIVIT Y* specimen seq. ADM. Not Available [facility] (Lab) [address] [place] [address], 60486, 03/15/2024 15:20:46 04/03/20 24 04/03/2024 LIPID PANEL * fasting status: NON FASTIN G Not Available [facility] (Lab) [address] [place] [address], 96199, 04/03/2024 17:58:59 04/03/20 24 04/03/2024 LIPID PANEL * cholesterol 130 mg/dL 0 - 200 Not Available [facility] (Lab) [address] [place] [address], 78393, 04/03/2024 17:58:59 04/03/20 24 04/03/2024 LIPID PANEL * triglyceride s 100 mg/dL 56 - 240 Not Available [facility] (Lab) [address] [place] [address], 30918, 04/03/2024 17:58:59 04/03/20 24 04/03/2024 LIPID PANEL * HDL 50 mg/dL 30 - 74 Not Available [facility] ([facility]) [address] [place] [address], 86367, 04/03/2024 17:58:59 04/03/20 24 04/03/2024 LIPID PANEL * non-HDL-C 80 mg/dL 0 - 160 Not Available [facility] ([facility]) [address] [place] [address], 50347, 04/03/2024 17:58:59 04/03/20 24 04/03/2024 LIPID PANEL * LDL (calc) 60 mg/dL 0 - 130 Not Available [facility] ([facility]) [address] [place] [address], 07684, 04/03/2024 17:58:59 04/03/20 24 04/03/2024 LIPID PANEL * % HDL 38.5 % Not Available [facility] (Lab) [address] [place], [address], 04/03/2024 17:58:59 04/03/20 24 04/03/2024 LIPID PANEL * chol/HDL ratio 2.6 0.0 - 4.9 Not Available [facility] (Lab) [address] [place] [address], 71996, 04/03/2024 17:58:59 04/03/20 24 04/03/2024 LIPID PANEL * CHD relative risk 0.5 x_avg 0.0 - 1.0 Not Available [facility] (Lab) [address] [place] [address], 64783, 04/03/2024 17:58:59 04/03/20 24 04/03/2024 LIPID PANEL * LDL/HDL ratio 1.2 0.0 - 3.5 Not Available [facility] ([facility]) [address] [place] [address], 24402, 04/03/2024 17:58:59 04/03/20 24 04/03/2024 LIPID PANEL * CHD relative risk. 0.3 x_avg 0.0 - 1.0 non-H DL-C and LDL(C ALC) refer ence range s refle ct NCEP ATP III recom menda tions for moder ate risk patie nts Not Available [facility] (Lab) [address] [place] [address], [id number], 04/03/2024 17:58:59 04/03/20 24 04/03/2024 SGOT (AST) SGOT (AST) 38 U/L 15 - 37 high Not Available [facility] ([facility]) [address] [place] [address], [id number], 04/03/2024 17:59:02 04/03/20 24 04/03/2024 SGPT (ALT) SGPT (ALT) 30 U/L 12 - 78 Not Available [facility] ([facility]) [address] [place] [address], [id number], 04/03/2024 17:59:59 04/03/20 24 04/03/2024 CPK SERUM TOTAL * CPK 79 U/L 0 - 150 Not Available [facility] ([facility]) [address] [place] [address], [id number], 04/03/2024 18:13:02 04/03/20 24 04/03/2024 CPK SERUM TOTAL * specimen seq. RANDOM Not Available [facility] (Lab) [address] [place] [address], [id number], 04/03/2024 18:13:02 05/10/20 24 05/10/2024 PSA DIAG PROST ATE SPECI FIC ANTIG EN * PSA 0.89 NG/mL 0.00 - 6.50 PROST ATE SPECI FIC ANTIG EN Value s obtai gera with diffe rent assay metho ds or kits may be diffe rent and canno t be used inter escalona eably . Serum PSA isabelle ntrat ion shoul d not be inter prete d as absol pio evide nce for the prese nce or absen ce of javier nolan . Not Available [facility] (Lab) [address] [place] [address], [id number], 05/10/2024 15:35:00 12/14/19 24 12/14/2023 ultra sound imagi ng repor t Patien t Name: Ovidio Aleman Unit #: [id number] Loc: DI Orderi ng Provid er: Malcolm ce-Tom wKaushik Accoun t #: [id number] Status : REG CLI Primar y Care Provid er: Susan Pacheco M.D. Date of Exam : Sex: M Admiss ion Date: : 1949 Age: 73 Exam(s ) US HERNIA EXAM: US HERNIA CLINIC AL HISTOR Y: TENDER NESS RLQ,R1 0.813, SUSPEC T RT INGUIN AL HERNIA . TECHNI QUE: Ultras ound was perfor med using standa rd protoc ol. COMPAR STEPHANIE: No exams were availa ble for compar stephanie FINDIN GS: Sonogr aphic assess ment utiliz ing graysc becca and color Dopple r imagin g was perfor med and target ed to the area of clinic al concer n. No eviden ce of a right inguin al hernia is seen sonogr aphica lly. Sonogr aphica lly benign -appea ring lymph nodes are seen in the right inguin al region . The larges t measur es 1.2 x 0.4 x 0.9 cm. IMPRES TONE: No sonogr aphic eviden ce of a right inguin al hernia . DATA REPOSI TORY: Ordere d By: Malcolm huber-Tom wKaushik CC: ------ ------ ------ ------ ------ ------ ------ ------ ------ ------ ------ ------ - Dictat ed By: Alfred Theodore M.D. 1453 Transc ribed By: Alfred Theodore 1453 This is privil eged, confid ential inform ation intend ed only for the provid er named. Any use or distri bution by any person other than this provid er is strict ly prohib ited. If you receiv e this report in error, please notify us immedi ately at [phone] and return the origin al report to us at the addres s above. Thank- you. taya Ríos n [facility] [address], [place], [address] 01/25/2024 16:43:43 12/25/19 24 12/25/2023 CT ABD pelvi s W IV contr ast only [facility] RADIOL Doug Martinez t [id number] PACS TRANSC RIPTIO N REPORT _ Patien t Name: OVIDIO ALEMAN MRN: Sex: : Age: [id number] M [birth year] [age] Accoun t: Access ion: Admit: StayTy pe: [id number] E/R Ordere d: Order ID: Submit ronaldo: Ashliephu norton Provid er: 2023 00:14 [id number] ME CINDI MARKHAM ronaldo: Techno logist : Result ed: 2023 01:02 AT 2023 18:20 _ Study Descri ption: CT ABD PELVIS W IV CONTRA ST ONLY Study Reason : RLQ Pain TECHNI QUE: Imagin g Protoc ol: Axial comput ed tomogr aphy images with sanchez l and sagitt al reform atted images were create d and review ed CONTRA ST MATERI AL: Intrav enous Omnipa que 100cc Oral: None COMPAR STEPHANIE: No exams were availa ble for compar stephanie FINDIN GS: VISUAL IZED LUNG BASES: No nodule s nor pleura l effusi ons eviden t ABDOME N: There is no ascite s. LIVER: There are no focal hepati c lesion s eviden t. No dilate d intrah epatic ducts. GALLBL ADDER/ BILIAR Y: Subtle sugges tion of possib le noncal cified gallst one. Gallbl adder contra cted. No edema. No perich olecys tic fluid. CBD not dilate d. PANCRE : No eviden ce of pancre atic mass nor dilata tion of the pancre atic duct. SPLEEN : Spleen is not enlarg ed. No obviou s intras plenic lesion s. Spleni c and portal veins are patent . ADRENA LS: There are no signif icant adrena l masses . KIDNEY S: There are benign cortic al cysts in both kidney s. The larges t is in the inferi or pole the right kidney it measur es 4 x 4 cm. These simple cyst do not requir e furthe r imagin g follow -up. There are no solid renal masses . There are calcul i eviden t in both kidney s. No hydron ephros is nor hydrou reter. There are no calcul i eviden t in the ureter s nor within the nondis tended urinar y bladde r. ABDOMI NAL AORTA: Mild aneury smal dilata tion. Maximu m diamet er, howeve r, is 1.4 cm.. LYMPH NODES: There is no retrop eriton eal nor paraao rtic adenop athy ABDOMI NAL WALL/G I: No eviden ce of signif icant anteri or abdomi nal wall hernia . No bowel obstru ction. PELVIS : GI: No eviden ce of append icitis .No eviden ce of sigmoi d divert iculit is. LYMPH NODES: There is no intrap elvic nor inguin al adenop athy. REPROD UCTIVE : Promin ent calcif icatio ns of the prosta te gland noted. Prosta te size is minima lly promin ent. There is a small amount of free fluid in the lower right pelvis adjace nt to the rectum . URINAR Y BLADDE R: No calcul i nor obviou s masses eviden t OSSEOU S: Previo us lumbar surger y. No metall ic hardwa re. Donor site eviden t in the right iliac bone. No acute fractu res. No osseou s lesion s IMPRES TONE: 1. Bilate ral nonobs tructi ve nephro lithia sis. 2. Possib le subtle cholel ithias is. No eviden ce of acute cholec ystiti s nor dilata tion of the biliar y tree 3. There is a small amount of fluid in the depend ent asked of the pelvis , possib ly signif icant it as fluid in the pelvis is not a normal findin g in a male patien t. There are no adjace nt divert iculi. Requir es follow -up. 4. Other findin gs as above. Report Digita lly Signed by Lamin Ariza on 2023 06:20 PM EST [facility] (Lab) [address], [place], [address], 12/30/2023 17:42:23 01/05/20 24 12/25/2023 CT ABD pelvi s W IV contr ast only [facility] RADIOL OGY Doug Champagne t [id number] PACS TRANSC RIPTIO N REPORT _ Patien t Name: OVIDIO ALEMAN MRN: Sex: : Age: [id number] M [birth year] [age] Accoun t: Access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 DELIVERED: !Error Total DLP DATA REPOSITORY: All CT scans at this facility are submitted to the National Radiology Data Registry (NRDR) Dose Index Registry (DIR) with the [employer] (ACR). RADIATION OPTIMIZATION: All CT scans at this facility use at least one of these dose optimization techniques: automated exposure control; mA and/or kV adjustment per patient size (includes targeted exams where dose is matched to clinical indication); or iterative reconstruction. Electronically signed by: Lamin Ariza Dictated: 03/15/2024 14:[address], [place], [address], [facility] 03/18/2024 17:41:22 Problems Name Problem SNOMED Code Status Onset Date Resolution Date Notes Provider Name and Address Organization Details Recorded Time Divertic ulosis of large intestin e 452631565 Active 2001 Problem Code: K57.30; Problem Code Type: ICD-10; Not Available [facility] 3 04:11:58 Paroxysm al atrial fibrilla tion 894387082 Active 200605/24/20 23 - Comments only - Radha Kincaid MD - Clinical ly remainin g stable on metoprol ol, verapami l, anticoag ulated on xarelto. Problem Code: I48.0; Problem Code Type: ICD-10; Not Available [facility] 3 04:11:58 Hyperlip idemia 15226927 Active 200602/20/20 23 - Comments only - Radha Kincaid MD - , Most recent lipid panel a few years ago was revealin g good control on the simvasta tin 10 mg daily. However given possible TIA we may need to increase or transiti on to a more potent statin. Problem Code: E78.5; Problem Code Type: ICD-10; Not Available [facility] 3 04:11:59 Chronic pain syndrome 564802889 Active 200605/12/20 22 - Comments only - Radha Kincaid MD - for which he is [...] G89.4; Problem Code Type: ICD-10; Not Available [facility] 3 04:11:59 Headache 14238476 Active 2006 Problem Code: R51; Problem Code Type: ICD-10; Not Available [facility] 3 04:11:59 Essentia l hyperten tone 87890368 Active 200106/12/20 23 - Comments only - Radha Kincaid MD - Blood pressure today within normal limits, Last visit elevated but has been in more pain.. We will continue to monitor. He continue s on metoprol ol, verapami l. Problem Code: I10; Problem Code Type: ICD-10; Not Available [facility] 3 04:11:59 Nicotine dependen ce 92887946 Active 2003 Problem Code: Z87.891; Problem Code Type: ICD-10; Not Available [facility] 3 04:11:59 Fatigue 58585746 Active 2006 Problem Code: R53.83; Problem Code Type: ICD-10; Not Available [facility] 3 04:11:59 Low back pain 332245437 Active 200109/10/20 22 - Comments only - Radha Kincaid MD - , Remainin g fairly [...] M54.5; Problem Code Type: ICD-10; Not Available [facility] 3 04:11:59 Steatosi s of liver 272081455 Active 200102/20/20 23 - Comments only - Radha Kincaid MD - Most recent LFTs with slightly elevated AST at 48. His abdomina l CT done on 08/20/20 21 was fairly unremark able. We will review further with him at the next visit. Problem Code: K76.0; Problem Code Type: ICD-10; Not Available [facility] 3 04:11:59 Herpesvi bridgett infectio n 71683816 Active 200907/28/20 21 - Comments only - Radha Kincaid MD - , History of. He had weaned himself off the daily valacycl ovir, does have some still to use acutely if needed. Problem Code: B00.9; Problem Code Type: ICD-10; Not Available [facility] 3 04:11:59 Speciali zed medical examinat ion Active 2013 Problem Code: Z01.89; Problem Code Type: ICD-10; Not Available [facility] 3 04:11:59 Pain of left shoulder joint 49947853447 125487 Active 2014 Problem Code: M25.512; Problem Code Type: ICD-10; Not Available [facility] 3 04:12:00 Third green party encounte r Active 2014 Problem Code: Z71.0; Problem Code Type: ICD-10; Not Available [facility] 3 04:12:00 Benign neoplasm of skin 29052819 Active 2015 Problem Code: D23.9; Problem Code Type: ICD-10; Not Available [facility] 3 04:12:00 Adjustme nt disorder 87997379 Active 201502/20/20 23 - Comments only - Radha Kincaid MD - With his signific ant other/he r family. Supporti ve listenin g today. He is engaged with counseli cierra which she finds quite benefici al. He also has an upcoming trip to [place] next [place] which she is looking forward to. Problem Code: F43.20; Problem Code Type: ICD-10; Not Available [facility] 3 04:12:00 Hypothyr oidism 79488387 Active 201506/12/20 23 - Comments only - Radha Kincaid MD - Clinical ly remainin g euthyroi d on levothyr oxine 100 mcg daily. TSH in January was appropri ate. Problem Code: E03.9; Problem Code Type: ICD-10; Not Available [facility] 3 04:12:00 Arthralg ia of the ankle and/or foot 222818470 Active 2015 Problem Code: M25.571; Problem Code Type: ICD-10; Not Available [facility] 3 04:12:00 Psychody namic relation ship finding 835266854 Active 201606/12/20 23 - Comments only - Radha Kincaid MD - With associat ed stress. [...] Z63.9; Problem Code Type: ICD-10; Not Available [facility] 3 04:12:00 Postproc edural state finding 943966484 Active 2016 Problem Code: Z98.89; Problem Code Type: ICD-10; Not Available [facility] 3 04:12:00 Kidney stone 91022044 Active 201602/23/20 20 - Comments only - Radha Kincaid MD - will refer to urology for possible lithotri psy Problem Code: N20.0; Problem Code Type: ICD-10; Not Available [facility] 3 04:12:01 Pain in right arm 900382793 Active 2016 Problem Code: M79.601; Problem Code Type: ICD-10; Not Available [facility] 3 04:12:01 Dizzines s and giddines s 730924003 Active 201609/10/20 22 - Comments only - Radha Kincaid MD - Which he has had [...] see if he can come off the zonisami de. He has been evaluate d by cardiolo gy and they do not feel that these dizzy episodes are related to cardiac etiology . Problem Code: R42; Problem Code Type: ICD-10; Not Available [facility] 3 04:12:01 Insomnia 124894811 Active 2017 Problem Code: G47.00; Problem Code Type: ICD-10; Not Available [facility] 3 04:12:01 Pain of right shoulder joint 37834316608 273105 Active 2017 Problem Code: M25.511; Problem Code Type: ICD-10; Not Available [facility] 3 04:12:01 Thromboc ytopenic disorder 329314600 Active 201709/10/20 22 - Comments only - Radha Kincaid MD - For which she is followin g with hematolo gy. 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 Platelet count currentl y 94,000, remainin g relative ly stable. Problem Code: D69.6; Problem Code Type: ICD-10; Not Available [facility] 3 04:12:01 Pain in right hand 82822644600 9109 Active 2017 Problem Code: M79.641; Problem Code Type: ICD-10; Not Available [facility] 3 04:12:01 Polyneur opathy 60607589 Active 201803/14/20 19 - Comments only - Radha Kincaid MD - focal to the L4 region it appears. THis could be spine related - will get a copy of his most recent MRI report. Problem Code: G62.9; Problem Code Type: ICD-10; Not Available [facility] 3 04:12:02 Pain in left foot 79504414410 9107 Active 2018 Problem Code: M79.672; Problem Code Type: ICD-10; Not Available [facility] 3 04:12:02 Pain of right knee joint 82595617532 4100 Active 201812/01/19 20 - Comments only [...] M25.561; Problem Code Type: ICD-10; Not Available [facility] 3 04:12:02 Adult health examinat ion Active 201802/20/20 23 - Comments only - Radha Kincaid MD - Ovidio will be due for colonosc opy next year. PSA ordered. He continue s to be physical ly active, encourag ed him with the same. Also remainin g mentally active and engaged. Problem Code: Z00.00; Problem Code Type: ICD-10; Not Available [facility] 3 04:12:02 Seizure 21730365 Active 2019 Problem Code: R56.9; Problem Code Type: ICD-10; Not Available [facility] 3 04:12:02 Therapeu tic drug monitori ng assay 48421677 Active 201905/12/20 22 - Comments only - Radha Kincaid MD - he has been instruct ed to take his last dose of xarelto on 05/15/22. It can then be resumed post-ope ratively per Dr. Clayton' s recommen dation. Problem Code: Z51.81; Problem Code Type: ICD-10; Not Available [facility] 3 04:12:02 Trigger finger of right hand 50176363868 502693 Active 201907/28/20 21 - Comments only - Radha Kincaid MD - Improved status post trigger finger release. Continue s to do some massage. Problem Code: M65.331; Problem Code Type: ICD-10; Not Available [facility] 3 04:12:02 Migraine 13799004 Active 201901/23/20 22 - Comments only - Radha Kincaid MD - For which he follows [...] G43.909; Problem Code Type: ICD-10; Not Available [facility] 3 04:12:03 Dysfunct ion of right vestibul ar system 63424875293 38725 Active 2019 Problem Code: H81.91; Problem Code Type: ICD-10; Not Available [facility] 3 04:12:03 Cervical radiculo melissa 34408517 Active 201903/13/20 22 - Comments only - Radha Kincaid MD - due to severe foramina [...] M54.12; Problem Code Type: ICD-10; Not Available [facility] 3 04:12:03 Implanta tion to cardiova scular system Active 202009/10/20 22 - Comments only - Radha Kincaid MD - /Paroxys mal A. fib. No loop recorder . He continue s to follow regularl y with cardiolo gy. He is on verapami l, metoprol ol which are providin g good rate control. On Xarelto. Clinical ly remainin g stable. Problem Code: Z95.818; Problem Code Type: ICD-10; Not Available [facility] 3 04:12:03 Disorder of thyroid gland 72529802 Active 202002/20/20 23 - Comments only - Radha Kincaid MD - Due for TFTs. On levothyr oxine. Problem Code: E07.9; Problem Code Type: ICD-10; Not Available [facility] 3 04:12:03 Pain in left arm 817372501 Active 202001/23/20 22 - Comments only - Radha Kincaid MD - Due to cervical radiculo melissa. Surgery planned for March, anterior cervical discecto my and fusion C4-C6. We will have Ovidio come back for preop a week or 2 prior. We discusse d, he is aware that he will need to stop the Xarelto at least 3 days prior to the planned procedur e and would resume it after the procedur e. We discusse d postoper ative pain manageme nt. 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 He does not feel this is worsenin g. Problem Code: R41.3; Problem Code Type: ICD-10; Not Available [facility] 3 04:12:04 Pain in finger of right hand 76438447198 9109 Active 202112/08/19 22 - Comments only [...] Available [facility] 3 04:12:04 Senile hyperker atosis 953442457 Active 2021 Problem Code: L82.1; Problem Code Type: ICD-10; Not Available [facility] 3 04:12:05 Pre-surg jacinto evaluati on Active 202105/12/20 22 - Comments only - Radha Kincaid MD - for ACDF C4-6 schedule [...] Z01.818; Problem Code Type: ICD-10; Not Available [facility] 3 04:12:05 Medical examinat ion for suspecte d conditio n Completed 202105/12/2022 Problem Code: Z03.818; Problem Code Type: ICD-10; Not Available [facility] 3 04:12:05 High antibody titer 017927633 Active 202109/10/20 22 - Comments only - Radha Kincaid MD - For which declan corbin has requeste d further evaluati on. We will decide on appropri ate addition al blood work and let him know. Problem Code: R76.0; Problem Code Type: ICD-10; Not Available [facility] 3 04:12:05 Pain in thoracic spine 998050765 Active 202109/10/20 22 - Comments only - Radha Kincaid MD - Left-cb ed, predomin antly [...] M54.9; Problem Code Type: ICD-10; Not Available [facility] 3 04:12:05 Wolbach - lesion 823126067 Active 2022 Problem Code: L84; Problem Code Type: ICD-10; Not Available [facility] 3 04:12:06 Cough 56402628 Completed 202202/05/2023 Problem Code: R05.8; Problem Code Type: ICD-10; [address], [place], [address] , [facility] 17:13:48 Melena 8170770 Completed 202201/25/2023 Problem Code: K92.1; Problem Code Type: ICD-10; Not Available [facility] 3 04:12:06 Long-ter m current use of anticoag ulant 540318993 Active 2022 Problem Code: Z79.01; Problem Code Type: ICD-10; Not Available [facility] 3 04:12:06 Asymptom atic microsco pic hematuri a 06267188721 404813 Active 2022 Problem Code: R31.21; Problem Code Type: ICD-10; Not Available [facility] 3 04:12:07 Hemosper sophia 63515064 Active 202202/20/20 23 - Comments only - Radha Kincaid MD - , One-time episode. Also has some possible hematuri a on UA in the office. Will send for micro. Hematosp ermia likely related to being on the Xarelto. Problem Code: R36.1; Problem Code Type: ICD-10; Not Available [facility] 3 04:12:07 Aphasia 66519719 Active 202205/24/20 23 - Comments only - Radha Kincaid MD - That occurred for about 1 minute., Consider tanika huber. He has met with neurolog y. CTA of the head was essentia lly unremark able. He has some small vessel ischemic disease but not large vessel stenoses . Again he is anticoag ulated. Problem Code: R47.01; Problem Code Type: ICD-10; Not Available [facility] 3 04:12:07 Trigemin al neuralgi a 77145755 Active 202206/12/20 23 - Comments only - Radha Kincaid MD - Remainin g quiescen t with carbamaz epine 100 mg daily. Recent level is low but is on menses clinical ly stable he can continue the same dose. He does follow with neurolog y. Problem Code: G50.0; Problem Code Type: ICD-10; Not Available [facility] 3 04:12:07 Chest pain 79577058 Active 2022 Problem Code: R07.89; Problem Code Type: ICD-10; Not Available [facility] 3 04:12:07 Trigger finger of left hand 30544668157 969421 Active 2022 Problem Code: M65.332; Problem Code Type: ICD-10; Not Available [facility] 3 04:12:08 Pain in right lower limb 875382127 Active 2022 Problem Code: M79.604; Problem Code Type: ICD-10; Not Available [facility] 3 04:12:08 Disorder of kidney and/or ureter 761400888 Active 2022 Problem Code: N28.9; Problem Code Type: ICD-10; Not Available [facility] 3 04:12:08 Shoulder joint pain 888090175 Completed 201407/28/2023 04/04/20 15 - Deterior ated - Radha Kincaid MD - When he is ready/ab [...] 719.41; Problem Code Type: ICD-9; Not Available [facility] 3 04:12:08 Chronic sinusiti s 70554436 Completed 201707/28/2021 Problem Code: J32.9; Problem Code Type: ICD-10; Not Available [facility] 3 04:12:09 Chronic pain 14577049 Completed 200607/28/2023 Problem Code: 338.29; Problem Code Type: ICD-9; Not Available [facility] 3 04:12:09 Amnesia 81304251 Completed 201607/28/2021 Problem Code: R41.3; Problem Code Type: ICD-10; Not Available [facility] 3 04:12:09 Abnormal finding on evaluati on sang e 091767912 Completed 202102/19/2023 Problem Code: R89.9; Problem Code Type: ICD-10; Not Available [facility] 3 04:12:09 Pre-surg jacinto evaluati on Completed 201807/28/2021 Problem Code: Z01.818; Problem Code Type: ICD-10; Not Available [facility] 3 04:12:10 Divertic ular disease of colon 162396337 Completed 200107/28/2023 Not Available [facility] 3 04:12:10 Nausea and vomiting 97618850 Completed 202102/19/2023 Problem Code: R11.2; Problem Code Type: ICD-10; Not Available [facility] 3 04:12:10 Gastriti s 8379595 Completed 201307/28/2021 Problem Code: K29.70; Problem Code Type: ICD-10; Not Available [facility] 3 04:12:11 Visual disturba nce 31236740 Completed 201507/28/2021 Problem Code: H53.9; Problem Code Type: ICD-10; Not Available [facility] 3 04:12:11 Acute sinusiti s 96155899 Completed 201807/28/2021 Problem Code: J01.90; Problem Code Type: ICD-10; Not Available [facility] 3 04:12:11 Disorder of pigmenta tion 544944305 Completed 202107/28/2023 12/08/19 22 - Comments only [...] L81.9; Problem Code Type: ICD-10; Not Available [facility] 3 04:12:11 Localize d eruption of skin 852935276 Completed 201807/28/2021 Problem Code: R21; Problem Code Type: ICD-10; Not Available [facility] 3 04:12:12 Steatohe patitis 025438850 Completed 200107/28/2023 Not Available [facility] 3 04:12:12 Swelling 69607028 Completed 201907/28/2021 Not Available [facility] 3 04:12:12 Spasm 25705279 Completed 201507/28/2021 Problem Code: M62.838; Problem Code Type: ICD-10; Not Available [facility] 3 04:12:12 Altered mental status 480025150 Completed 201607/28/2021 Problem Code: R41.82; Problem Code Type: ICD-10; Not Available [facility] 3 04:12:13 Acute sinusiti s 79653022 Completed 202202/19/2023 Problem Code: J01.90; Problem Code Type: ICD-10; Not Available [facility] 3 04:12:13 Acute upper respirat ory infectio n 18239910 Completed 202102/19/2023 Problem Code: J06.9; Problem Code Type: ICD-10; Not Available [facility] 3 04:12:13 Pain in thoracic spine 953775696 Completed 201607/28/2021 Problem Code: M54.89; Problem Code Type: ICD-10; Not Available [facility] 3 04:12:13 Atrial fibrilla tion 19693734 Completed 200607/28/2023 Problem Code: 427.31; Problem Code Type: ICD-9; Not Available [facility] 3 04:12:14 Chest pain 53793884 Completed 201907/28/2021 Problem Code: R07.9; Problem Code Type: ICD-10; Not Available [facility] 3 04:12:14 Diarrhea 36401859 Completed 202102/19/2023 Problem Code: R19.7; Problem Code Type: ICD-10; Not Available [facility] 3 04:12:14 Altered bowel function 47524186 Completed 202202/19/2023 Problem Code: R19.4; Problem Code Type: ICD-10; Not Available [facility] 3 04:12:15 History of tobacco use 37082698314 03 Completed 200307/28/2023 Not Available [facility] 3 04:12:15 Otitis externa 7748127 Completed 201707/28/2021 Problem Code: H60.90; Problem Code Type: ICD-10; Not Available [facility] 3 04:12:15 Cough 91810377 Completed 201807/28/2021 Problem Code: R05; Problem Code Type: ICD-10; [address], [place], [address] , [facility] 3 17:13:48 Rat bite Completed 202102/19/2023 Problem Code: W53.11xA ; Problem Code Type: ICD-10; Not Available [facility] 3 04:12:16 Cough 52747388 Active 2022 Problem Code: R05.8; Problem Code Type: ICD-10; [place], [address] , [facility] 3 17:13:48 Sore throat 182120177 Active [address], [place] [address] , [facility] 3 17:34:41 Anti-nuc lear factor detected 786872607 Active 2022 1:160 in [address], [place] [address] , [facility] 3 14:19:10 History of chest pain 95096752497 521880 Active [address], [place] [address] , [facility] 3 15:00:27 Anterior rhinorrh ea 089922609 Active [address], [place] [address] , [facility] 3 15:00:17 Tenderne ss of right lower quadrant of abdomen 774700349 Active 2023 MARAH COSTELLO, [facility] [address], [place] [address] , [facility] 4 15:09:35 Inguinal hernia 799590848 Active 2023 Will be lacrosco pically repaired mid-Henry h 2023. 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 ? [address] [place] [id number], John T (id #[id number], : 1950) [address],??[place]?[address] Phone:?? Fax:?? Encounter Summary - Progress Note Date Printed: ?09/16/2023 Documents sent via fax will include the followingmessage: This fax may contain sensitive and confidential personal health information that is being sent for the sole use of the intended recipient. Unintended recipients are directed to securely destroy any materials received. You are hereby notified that the unauthorized disclosure or other unlawful use of this fax or any personal health information is prohibited. To the extent patient information contained in this fax is subject to 42 CFR Part 2, this regulation prohibits unauthorized disclosure of these records. If you received this fax in error, please visit [email or web address] [email or web address] to notify the sender and confirm that the information will be destroyed. If you do not have internet access, please call to notify the sender and confirm that the information will be destroyed. Thank you for your attention and cooperation. [ID:[id number]] Patient Ovidio Minor (73yo, M) #[id number] 1950 ?? Patient Demographics: Address [address] [place] [address] ? Work Phone ?? Encounter Notes: Encounter Reason/Date cold symptoms patient states he has been sick for 1 week he states it started in his glands, he states he has a sore throat he states when he woke up wednesday morning and felt wiped out, he states he has to go back to work tomorrow but hasnt been able to kick ths cold.pt has been using theraflu and mucanex which has helped him get up some of the phlegm in his lungs.pt has not taken any at home covid tests. 09/16/2023 - 02:28PM - [facility] History of Present IllnessJohn is a 73-year-old male who presents with 1 week of ill symptoms. Is most bothered by sore throat and swollen glands. Has had associated fatigue, questions if possibility of fever last night but also unsure if maybe his electric blanket was just too high. He has not had nausea or vomiting. Some loose stools. Normal bladder. Does not have much of a cough but when he does it hurts his throat. No chest pain, shortness of breath or wheezing. Has been able to eat and drink without difficulty. Has been treating symptoms by increasing fluids, resting, using TheraFlu and Mucinex. No known sick contacts. Has taken couple days off of work. Review of SystemsROS as noted in the HPI Vitals Ht: 6 ft Stated (182.88 cm)09/16/2023 04:20 pm Wt: 154 lbs Stated (69.85 kg)09/16/2023 04:21 pm BMI: 20.911 04:21 pm T: 97.9 F?? ear (36.61 C)09/16/2023 04:24 pm BP: 198/139 sitting R arm09/16/2023 04:22 pm 158/81 sitting L arm09/16/2023 04:24 pm BP Cuff Size: adult09/16/2023 04:22 pm adult09/16/2023 04:24 pm O2Sat: 98% Room Air at Rest09/16/2023 04:22 pm Pulse: 61 bpm09/16/2023 04:22 pm RR: 04:23 pm Body Surface Area: 1.88 m??09/16/2023 04:21 pm Results/Interpretations RAPID STREP GROUP A, THROAT Result: -Strep: negative INFLUENZA VIRUS A + B + SARS-COV-2 (COVID19) AG PANEL, RAPID IA, UPPER RESPIRATORY SPECIMEN Results: -SARS-COV-2: negative-Influenza B: negative-Influenza A: negative Physical ExamVITAL SIGNS: As noted in nurse's triage and reviewed by me.CONSTITUTIONAL: afebrile, ill but nontoxic-appearing older adult male, sitting on exam bed, in no acute distress.ENT: Bilateral TMs translucent, auditory canals clear. Posterior oropharynx with mild tonsillary erythema and swelling, without exudates or uvular deviation. No airway compromise. tender anterior cervical lymphadenopathy. Patient is managing oral secretions without difficulty.RESPIRATORY: Breathing non-labored. Chest expands symmetrically. Breath sounds are clear throughout and equal bilaterally. No rhonchi or rales. No crackles. No wheeze.CARDIOVASCULAR: Regular rate and rhythm without murmurs, gallops, or rubsSKIN: Warm and dry. No significant lesions noted.NEURO: Cranial nerves II-XII are grossly intact. No focal deficits.PSYCH: Appropriate mood and affect. Assessment and Plan 1. Sore throat symptom-patient has had ill symptoms now for 1 week. He is most bothered by his sore throat. His tonsils are red, slightly swollen but there is no exudates or concerns for uvular deviation to suggest peritonsillar abscess. His rapid COVID, flu, strep test are all negative. Throat culture and COVID PCR sent for confirmatory measures. Patient will be contacted as results return. He will monitor for development of other symptoms. Work note is provided.J02.9: Acute pharyngitis, unspecified RAPID STREP GROUP A, THROAT - ?Specimen source: Tonsil CULTURE, THROAT - ?Specimen source: Tonsil 2. Cough-Patient has mild cough. More so bothered by sore throat. His lung exam is reassuring throughout. He has not had chest pain, shortness of breath or wheeze. Patient will monitor the symptoms and if worsens will seek follow-up.R05.9: Cough, unspecified INFLUENZA VIRUS A + B + SARS-COV-2 (COVID19) AG PANEL, RAPID IA, UPPER RESPIRATORY SPECIMEN - ?Specimen source: Nose (nasal passage) SARS COV 2 RNA (COVID-19), QL, VALIDATION MANAGER-PCR, RESPIRATORY SPECIMEN - ?Specimen source: Nose (nasal passage) RAPID STREP GROUP A, THROAT Result: -Strep: negative INFLUENZA VIRUS A + B + SARS-COV-2 (COVID19) AG PANEL, RAPID IA, UPPER RESPIRATORY SPECIMEN Results: -SARS-COV-2: negative-Influenza B: negative-Influenza A: negative Patient Instructions1. your Rapid COVID and flu test are negative here today. COVID PCR sent for confirmatory measures will be back either later today or tomorrow. These results will be communicated as soon as they become available. 2. Your rapid strep is negative and thus a throat culture is sent for confirmatory measures. This will take 2 days to fully resolve and we will contact you when it is available. 3. Lung exam today is reassuring without signs of pneumonia or wheeze. 4. Please continue to monitor your symptoms as we await test results to return. We will check in with you tomorrow and the next day to review results and see how you are doing. If you develop any new or worsening concerning symptoms please seek follow-up as needed. 5. Work note has been provided. Return to Office RADHA KINCAID MD for Follow Up 30 at [facility] on 10/07/2023 at 02:00 PM Patient Medical History: Allergies List Reviewed Allergies AMBIEN AMITRIPTYLINE LIPITOR TAMBOCOR Medications Reviewed Medications NameDate Source acetaminophen Extra Strength 500 mg tabletTake 1 tablet by mouth every six hours as glkyza98/10/23?entere d linpui.85 acyclovir 200 mg capsuleTake 1 capsule by mouth as directed as /10/23?entere d linpui.85 baclofen 10 mg tabletTAKE 1 TABLET BY MOUTH EVERY DAY NEEDED, start /?fi lled linpui.85 Botox 200 unit injectionInject 200 unit as directed every 3 mrfojd02/10/23?sammie lucas linpui.85 Centrum Silver1 tablet once a day, start ?st aleksey linpui.85 Colace 2-In-1 8.6 mg-50 mg tabletTake 2 tablet by mouth as directed as tubnqb13/10/23?sammie lucas linpui.85 Complete Multivitamin-Multimineral 18 mg-400 mcg tabletTake 1 tablet by mouth once a day09/10/23?entered linpui.85 diclofenac 1 % topical gelApply 1 gram to affected area once a day as /10/23?sammie lucas linpui.85 finasteride 5 mg tabletTAKE 1 TABLET BY MOUTH ONCE DAILY, start ?st aleksey linpui.85 fluticasone propionate 50 mcg/actuation nasal spray,suspensionINSTILL 1 SPRAY TO EACH NOSTRIL TWICE DAILY, start ?fi lled linpui.85 lamoTRIgine 25 mg tablet2 tablet twice a day, start ?fi lled linpui.85 levothyroxine 100 mcg tabletTake 1 tablet by mouth once a day, start ?fi lled linpui.85 metoprolol succinate ER 100 mg tablet,extended release 24 hrTake 1 tablet by mouth once a day Internal Note:[facility] Cardiology - 01/25/23 decrease in dose, start ?st aleksey linpui.85 oxyCODONE 15 mg tabletTake 1 tablet by mouth every four hours as needed, start ?fi lled linpui.85 simvastatin 10 mg tabletTAKE 1 TABLET BY MOUTH AT BEDTIME, start ?fi lled linpui.85 tamsulosin 0.4 mg capsuleTake 1 capsule by mouth once a day09/10/23?entered linpui.85 triamcinolone acetonide 0.1 % topical ointmentApply three times a day as needed, start ?st aleksey linpui.85 Ubrelvy 50 mg tablet1 at onset of migraine - samples given by neurology, start /11/23?fi lled linpui.85 valACYclovir 500 mg tabletTake 1 tablet by mouth once a day as needed, start ?fi lled linpui.85 verapamiL ER (SR) 120 mg tablet,extended releaseTAKE 1 TABLET BY MOUTH AT BEDTIME, start ?fi lled linpui.85 Xarelto 20 mg tabletTAKE 1 TABLET BY MOUTH EVERY DAY, start ?st mallylance linpui.85 Family HistoryReviewed Family History *Problem: Mother: age 87 age CAD, may have had RA Father: age 54 with 1st [place] cause CAD(58 ) - had had an aortic valve replacement toward the end of his life Family History of: Diabetes: yes Other: kidney disease Thyroid disorder runs in the family. 1 Brother - pancreatic cancer 1 Sister - hole in heart 3 children (sons) - one brain surgery (seizures) Past Medical History Notes: : *Comments: 1) Chronic M/S problems with multiple surgeries 2) Treated HTN 3) Treated hyperlipidemia, although he s overdue for his labwork. Vaccine HistoryReviewed Vaccines Vaccine Type Date Amt. Route Site NDC Lot??# Mfr. Exp. Date VIS VIS Given Dialysis Technician COVID-19 COVID-19, mRNA, LNP-S, PF, 100 mcg/0.5 mL dose (Moderna) 04/30/22 Intramuscular Deltoid, Left [id number] Moderna Ri[employer]HT [employer] 07/15/22 04/30/22 Josselyn Albright RN COVID-19, mRNA, LNP-S, PF, 100 mcg/0.5 mL dose (Moderna) 08/28/21 Virginie Torres RN COVID-19, mRNA, LNP-S, PF, 100 mcg/0.5 mL dose (Moderna) 02/03/21 Sophia Mesa RN COVID-19, mRNA, LNP-S, PF, 100 mcg/0.5 mL dose (Moderna) 01/06/21 Khadra Fraser RN Diphtheria, Tetanus Td(adult) 08/05/13 Diphtheria, Tetanus, Pertussis Tdap 11/17/21 0.5 mL Intramuscular Deltoid, Right [id number] Sanofi Pasteur 04/03/23 06/06/2021 11/17/21 Virginie Torres RN Influenza influenza, high-dose, quadrivalent 09/08/22 0.7 mL Intramuscular Arm, Right Upper [id number] Sanofi Pasteur 04/30/23 06/06/2021 09/08/22 Sophia Mesa RN influenza, high-dose, quadrivalent 07/25/21 0.7 mL Intramuscular Deltoid, Left [id number] Sanofi Pasteur 04/30/22 06/06/2021 07/25/21 Sophia Mesa RN influenza, high dose seasonal 11/07/19 0.5 mL Intramuscular Deltoid, Left [id number] 04/10/20 06/15/2019 11/07/19 Madison Snyder RN influenza, high dose seasonal 07/25/19 0.5 mL Intramuscular Deltoid, Left [id number] 03/06/20 06/15/2019 07/25/19 Madison Snyder RN influenza 06/01/17 Josselyn Albright RN influenza, injectable, quadrivalent, preservative free 06/14/16 Kalina Crandall LPN influenza, injectable, quadrivalent, preservative free 08/14/15 0.5 mL Intramuscular Deltoid, Right [id number] 04/05/16 05/26/2013 influenza 07/20/14 influenza 07/11/13 influenza 07/14/12 influenza 08/18/11 influenza 08/21/10 novel [id number], all formulations 10/15/09 influenza 08/16/09 influenza 09/07/08 influenza 10/03/02 Pneumococcal pneumococcal polysaccharide PPV23 11/26/22 0.5 mL Intramuscular Deltoid, Left [id number] [employer] and [employer] 08/01/23 08/30/2019 11/26/22 Ana Ferreira MA pneumococcal conjugate PCV 13 04/24/18 0.5 mL Intramuscular Arm, Right Upper [id number] 12/02/19 09/05/2015 Kami Kelley MA pneumococcal polysaccharide PPV23 12/10/07 Sophia Mesa RN Zoster zoster live 02/03/13 Electronically Signed by: FELIX CUEVAS PA-C Karla Mendez RN [facility], [facility] 09/22/2023 11:40:17 Procedures Surgical History Date Name Laterality Status Provider Name and Address Organization Details Recorded Time release of trigger finger completed Dallin Quinones MA [facility] 12/15/2023 19:40:31 Imaging Results Imaging Date Name Status LastModified by Organiz ation Details LastModified Time 12/14/2023 ultrasound imaging report completed [id number] [facility] [place], [address] 01/25/2024 16:43:43 12/25/2023 CT ABD pelvis W IV contrast only completed [facility] (Lab) [address] [place], [address], 12/30/2023 17:42:23 12/25/2023 CT ABD pelvis W IV contrast only completed [facility] (Lab) [address] [place], [address], 01/05/2024 05:34:43 01/15/2024 CT ABD pelvis W IV contrast only completed [facility] (Lab) [address] [place], [address], 01/16/2024 17:23:31 01/21/2024 EKG order tracing 12 lead completed [facility] (Lab) [address] [place], [address], 01/28/2024 11:26:16 03/15/2024 CT, head, w/o contrast completed [facility] (Lab) [address] [place], [address], 03/15/2024 17:26:59 03/15/2024 EKG order tracing 12 lead completed [facility] (Lab) [address] [place] [address], [address], 03/18/2024 17:41:22 03/15/2024 CT, head, w/o contrast completed [facility] (Lab) [address] [place] [address], [address], 03/18/2024 17:41:22 03/15/2024 CT, head, w/o contrast completed [facility] (Lab) [address] [place] [address], [address], 03/18/2024 17:41:22 03/15/2024 EKG order tracing 12 lead completed [facility] (Lab) [address] [place] [address], [address], 03/18/2024 17:41:23 01/06/2024 MRI, brain + brain stem, w/wo contrast completed [facility] [address] [place], [address], 05/18/2024 10:57:00 05/29/2024 xr pelvis and hip lat lt* completed [facility] (Lab) [address] [place] [address], [id number], 05/30/2024 15:51:40 01/31/2019 MRI, lumbar spine completed Information not available 07/17/2024 19:52:25 05/14/2023 XR, chest completed Information no t available 07/17/2024 19:52:28 05/13/2023 CT, head or brain completed Information not available 07/17/2024 19:52:29 06/07/2020 XR, chest completed Information no t available 07/17/2024 19:52:30 11/29/2020 MRI, neck completed Information no t available 07/17/2024 19:52:31 04/19/2020 imaging/diagnos tic result completed Information not available 07/17/2024 19:52:46 01/30/2021 imaging/diagnos tic result completed Information not available 07/17/2024 19:52:47 12/22/2018 CT, head, w/o contrast completed Information not available 07/17/2024 19:52:48 10/05/2019 CT, head, w/o contrast completed Information not available 07/17/2024 19:52:49 07/04/2020 US, duplex, venous, extremity completed Information not available 07/17/2024 19:52:51 11/29/2020 XR, chest completed Information no t available 07/17/2024 19:52:54 05/13/2023 XR, chest completed Information no t available 07/17/2024 19:52:55 02/24/2023 CT, angiogram, head + neck, w/wo contrast completed Information not available 07/17/2024 19:52:57 10/22/2019 XR, hand, 3 or more view completed Information not available 07/17/2024 19:52:59 03/19/2020 XR, kidney + ureter + bladder completed Information not available 07/17/2024 19:53:02 06/28/2020 XR, kidney + ureter + bladder completed Information not available 07/17/2024 19:53:03 01/30/2021 XR, kidney + ureter + bladder completed Information not available 07/17/2024 19:53:04 06/27/2020 US, renal completed Information no t available 07/17/2024 19:53:05 05/14/2023 CT, head + neck, w/o contrast completed Information not available 07/17/2024 19:53:06 08/22/2019 US, abdomen completed Information n ot available 07/17/2024 19:53:07 10/11/2020 imaging/diagnos tic result completed Information not available 07/17/2024 19:53:09 10/22/2019 imaging/diagnos tic result completed Information not available 07/17/2024 19:53:10 07/29/2023 imaging/diagnos tic result completed Information not available 07/17/2024 19:53:12 05/14/2023 imaging/diagnos tic result completed Information not available 07/17/2024 19:53:13 10/16/2019 imaging/diagnos tic result completed Information not available 07/17/2024 19:53:14 09/17/2021 CT, abdomen + pelvis, w/o contrast completed Information not available 07/17/2024 19:53:19 08/28/2021 imaging/diagnos tic result completed Information not available 07/17/2024 19:53:21 12/11/2021 imaging/diagnos tic result completed Information not available 07/17/2024 19:53:22 12/11/2021 imaging/diagnos tic result completed Information not available 07/17/2024 19:53:24 03/12/2022 imaging/diagnos tic result completed Information not available 07/17/2024 19:56:06 06/25/2021 imaging/diagnos tic result completed Information not available 07/17/2024 19:56:07 10/07/2020 imaging/diagnos tic result completed Information not available 07/17/2024 19:56:13 07/08/2021 imaging/diagnos tic result completed Information not available 07/17/2024 19:56:18 Procedure Notes None recorded. Medical Equipment None Reported. Allergies Allergen ID Allergen Name Allergen Category Reaction Reaction Severity Criticality Documentation Date Start Date Code Code System Note Provider Name and Address Organization Details Recorded Time [address] [facility] n other severe high 09/16/20232016 72901 5 RxNorm alter ed menta l statu s [facility] 3 07:45:04 62033 amitripty line medicatio n other severe high 09/16/20232001 704 RxNorm racin g heart [facility] 3 07:44:35 10208 Tambocor medicatio n other severe high 09/16/20232022 45673 3 RxNorm cause d TN and QRS prolo ngati on Sophia Moshe [facility] 3 07:46:17 61133 Lipitor medicatio n other severe high 09/16/20232022 82136 5 RxNorm cause d liver enzym [facility] 3 07:45:38 Medications Name Sig Start Date [...] times a day as needed for cough 09/16 completed Not Available Not Available Not [...] by oral route as needed. 02/11 completed [facility] ; #10 Not Available Not Available Not [...] height Body mass index (BMI) Body weight Heart rate Oxygen saturation Oxygen saturation in Arterial blood by Pulse oximetry Respiratory rate Body temperature Systolic blood pressure Diastolic blood pressure Systolic blood pressure Diastolic blood pressure Provider Name and Address Organization Details Last Updated DateTime 3 182.88 cm 20.9 kg/m2 76549.2 2 g 61 /min 98 % 98 % 20 /min 97.9 [degF] 198 mm[Hg] 139 mm[Hg] 158 mm[Hg] 81 mm[Hg] Jia Theodore MA [facility] 3 16:24:57 Date Recorded Body height Body mass index (BMI) Body weight Body temperature Oxygen saturation Oxygen saturation in Arterial blood by Pulse oximetry Heart rate Respiratory rate Systolic blood pressure Diastolic blood pressure Provider Name and Address Organization Details Last Updated DateTime 3 182.88 cm 21.8 kg/m2 31602.3 7 g 96.8 [degF] 96 % 96 % 62 /min 14 /min 128 mm[Hg] 64 mm[Hg] Sophia Mesa [facility] 3 14:14:12 Date Recorded Body height Body mass index (BMI) Body weight Body temperature Heart rate Systolic blood pressure Diastolic blood pressure Provider Name and Address Organization Details Last Updated DateTime 4 182.88 cm 21.5 kg/m2 06603.7 5 g 98 [degF] 86 /min 138 mm[Hg] 72 mm[Hg] Luiza spivey LPN [facility] 4 14:20:15 Date Recorded Body height Body mass index (BMI) Body weight Oxygen saturation Oxygen saturation in Arterial blood by Pulse oximetry Heart rate Systolic blood pressure Diastolic blood pressure Provider Name and Address Organization Details Last Updated DateTime 4 182.88 cm 21.8 kg/m2 03457.3 7 g 98 % 98 % 60 /min 140 mm[Hg] 74 mm[Hg] Dallin Quinones MA [facility] 4 14:51:58 Date Recorded Body height Body mass index (BMI) Body weight Oxygen saturation Oxygen saturation in Arterial blood by Pulse oximetry Heart rate Systolic blood pressure Diastolic blood pressure Provider Name and Address Organization Details Last Updated DateTime 4 182.88 cm 21.4 kg/m2 07665.5 9 g 98 % 98 % 63 /min 142 mm[Hg] 70 mm[Hg] Zofia Albertoond [facility] 4 14:57:06 Social History Question Answer Notes LastModified by Organizat ion Details LastModified Time Tobacco Smoking Status [facility] 10/07/2023 14:23:00 What Is Your Level Of Alcohol Consumption? None [email or web address] Information not available 09/16/2023 When Did You Quit Smoking? 16+yearssin thienastcityson lizzyte [email or web address] Information not available 10/07/2023 What Was The Date Of Your Most Recent Tobacco Screening? 10/07/2023 [email or web address] Information not available 10/07/2023 What Is Your Current Pack Years? 10-19packye ars 2.5 Packs/day [email or web address] Information not available 10/07/2023 At What Age Did You Start Smoking Tobacco? 20 Information not available 10/07/2023 Do You Use Any Illicit Or Recreational Drugs? No [email or web address] Information not available 09/16/2023 Has Tobacco Cessation Counseling Been Provided? No [email or web address] Information not available 10/07/2023 How Many Years Have You Smoked Tobacco? 11 [email or web address] Information not available 10/07/2023 Do You Or Have You Ever Used Any Other Forms Of Tobacco Or Nicotine? No [email or web address] Information not available 10/07/2023 Sex: Male Functional Status None recorded. Mental Status None recorded. Family History Nothing Reported Notes:*Problem: Mother: age 87 age CAD, may have had RA Father: age 54 with 1st [place] cause CAD(58 ) - had had an [...] Recorded Time Tdap 11/17/2021 completed Not Available [facility] 05:30:10 zoster live 02/03/2013 completed Not Available [facility] 09/10/2023 05:30:10 Novel [id number], all formulations 10/15/2009 completed Not Available [facility] 09/10/2023 05:30:10 Pneumococcal conjugate PCV 13 04/24/2018 completed Not Available [facility] 09/10/2023 05:30:10 Influenza, high-dose, trivalent, PF 11/07/2019 completed Not Available [facility] 09/10/2023 05:30:11 Influenza, high-dose, trivalent, PF 07/25/2019 completed Not Available [facility] 09/10/2023 05:30:11 Td(adult) unspecified formulation 08/05/2013 completed Not Available [facility] 09/10/2023 05:30:11 Influenza, split virus, quadrivalent, PF 06/14/2016 completed Not Available [facility] 09/10/2023 05:30:11 Influenza, split virus, quadrivalent, PF 08/14/2015 completed Not Available [facility] 09/10/2023 05:30:11 Influenza, high-dose, quadrivalent, PF 07/25/2021 completed Not Available [facility] 09/10/2023 05:30:11 Influenza, high-dose, quadrivalent, PF 09/08/2022 completed Not Available [facility] 09/10/2023 05:30:11 COVID-19, mRNA, LNP-S, PF, 100 mcg/0.5mL dose or 50 mcg/0.25mL dose 01/06/2021 completed Not Available [email or web address] 09/10/2023 05:30:11 COVID-19, mRNA, LNP-S, PF, 100 mcg/0.5mL dose or 50 mcg/0.25mL dose 02/03/2021 completed Not Available [facility] 09/10/2023 05:30:11 COVID-19, mRNA, LNP-S, PF, 100 mcg/0.5mL dose or 50 mcg/0.25mL dose 04/30/2022 completed Not Available [facility] 09/10/2023 05:30:12 COVID-19, mRNA, LNP-S, PF, 100 mcg/0.5mL dose or 50 mcg/0.25mL dose 08/28/2021 completed Not Available [facility] 09/10/2023 05:30:12 pneumococcal polysaccharide PPV23 11/26/2022 completed Not Available [facility] 2022 05:30:12 pneumococcal polysaccharide PPV23 12/10/2007 completed Not Available [facility] 2022 05:30:12 influenza, unspecified formulation 06/01/2017 completed Not Available [facility] 09/10/2023 05:30:12 influenza, unspecified formulation 07/11/2013 completed Not Available [facility] 09/10/2023 05:30:12 influenza, unspecified formulation 07/14/2012 completed Not Available [facility] 09/10/2023 05:30:12 influenza, unspecified formulation 07/20/2014 completed Not Available [facility] 09/10/2023 05:30:12 influenza, unspecified formulation 08/16/2009 completed Not Available [facility] 09/10/2023 05:30:12 influenza, unspecified formulation 08/18/2011 completed Not Available [facility] 09/10/2023 05:30:12 influenza, unspecified formulation 08/21/2010 completed Not Available [facility] 09/10/2023 05:30:13 influenza, unspecified formulation 09/07/2008 completed Not Available [facility] 09/10/2023 05:30:13 influenza, unspecified formulation 10/03/2002 completed Not Available [facility] 09/10/2023 05:30:13 Respiratory syncytial virus (RSV) vaccine, unspecified 12/23/2023 completed Dallin Quinones MA null, [facility] 12/24/2023 14:49:00 SARS-COV-2 (COVID-19) vaccine, UNSPECIFIED 07/22/2023 completed HARJEET Nogueira, [facility] 02/10/2024 15:45:31 influenza, unspecified formulation 08/30/2023 completed HARJEET Nogueira, [facility] 02/10/2024 15:46:08 Past Encounters Encounter ID Performer Location Encounter Start Date Encounter Closed Date Diagnosis/Indication Diagnosis SNOMED-CT Code Diagnosis ICD10 Code [id number] FELIX CUEVAS PA-C [address] [address] 09/16/2023 14:29:44 09/16/2023 17:15:14 Sore throat 260107984 J02.9 Cough 28506675 R05.9 [id number] RADHA KINCAID MD [address] [address] 10/07/2023 13:57:18 10/07/2023 14:57:25 Chronic pain syndrome 275176804 G89.4 Essential hypertension 13030491 I10 Hyperlipidemia 53678143 E78.5 Hypothyroidism 45022367 E03.9 Paroxysmal atrial fibrillation 143585915 I48.0 Trigeminal neuralgia 316 44961 G50.0 Anti-nucle ar factor detected 348900255 R76.8 Chest pain 82901935 R07. 9 Anterior rhinorrhea 2772 98796 J34.89 [id number] MARAH COSTELLO, [facility]-[address] [address] 12/09/2023 14:02:58 12/09/2023 15:48:05 Tenderness of right lower quadrant of abdomen 010428159 R10.202 [id number] RADHA KINCAID MD [address] [address] 02/10/2024 14:40:43 02/10/2024 15:56:11 Chronic pain syndrome 449247743 G89.4 Hyperlipidemia 70946698 E78.5 Hypothyroidism 80518806 E03.9 Headache 57592144 R51.9 Disorder of skin 9283302 5 L98.9 Dizziness and giddiness 847493318 R42 Pain of ri ght knee joint 2583339571 00779 M25.357 [id number] RADHA KINCAID MD [address] [address] 05/16/2024 14:45:48 05/16/2024 16:14:44 Chronic pain 32705748 G89.29 Headache 96340757 R51.9 Paroxysmal atrial fibrillation 613100949 I48.0 Benign pro static hyperplasia 899879939 N40.1 Cerebrovas cular accident 122648196 I63.9 Essential hypertension 06711926 I10 Dysfunctio n of right vestibular system 4485111519 649492 H81.91 Thrombocyt openic disorder 470193090 D69.6 Health Concerns Section Related Observation LastModified by Organization Detai ls LastModified Time None Recorded Concern Status LastModified by Organization Details LastModified Time None Recorded Advance Directives Directive None Recorded Payers Encounter Date Sequence Insurance Name Policy Number Policy Bradley Covered Member ID Bradley Member ID Guarantor Name 09/16/2023 1 [place] [employer] Ovidio Minor [id number] Ovidio Minor 09/16/2023 2 [place] [facility] PL[facility] F (MEDICARE SUPPLEMENT) [id number] Ovidio Minor [id number] Ovidio Minor 10/07/2023 1 [place] [employer] Ovidio Minor [id number] Ovidio Minor 10/07/2023 2 [place] [facility] BLUE PLAN F (MEDICARE SUPPLEMENT) [id number] Ovidio Minor [id number] Ovidio Minor 12/09/2023 1 [place] [employer] Ovidio Minor [id number] Ovidio Minor 12/09/2023 2 [place] [facility] BL[employer] F (MEDICARE SUPPLEMENT) [id number] Ovidio Minor [id number] Ovidio Minor 02/10/2024 1 [place] [employer] Ovidio Minor [id number] Ovidio Minor 02/10/2024 2 [place] BC[place] OF [facility] F (MEDICARE SUPPLEMENT) [id number] Ovidio Minor [id number] Ovidio Minor 05/16/2024 1 [place] [employer] Ovidio Minor [id number] Ovidio iMnor 05/16/2024 2 [place] OF [facility] F (MEDICARE SUPPLEMENT) [id number] Ovidio Minor [id number] Ovidio Minor Notes Date Note Type Note Provider Name and Address Organization Details Recorded Time 09/16/2023 text/html HPI Notes: Ovidio is a 73-year-old male who presents with 1 week of ill symptoms. Is most bothered by sore throat and swollen glands. Has had associated fatigue, questions if possibility of fever last night but also unsure if maybe his electric blanket was just too high. He has not had nausea or vomiting. Some loose stools. Normal bladder. Does not have much of a cough but when he does it hurts his throat. No chest pain, shortness of breath or wheezing. Has been able to eat and drink without difficulty. Has been treating symptoms by increasing fluids, resting, using TheraFlu and Mucinex. No known sick contacts. Has taken couple days off of work. FELIX CUEVAS PA-C [address], [place], [address], [facility]. 09/16/2023 17:35:05 10/07/2023 text/html HPI Notes: Ovidio here today for follow-up of elevated CHACORTA, history of elevated BP readings, history of intermittent A-fib, chronic low back/knee pain, chronic rhinorrhea RADHA KINCAID MD [address], [place], [address], [facility]. 10/09/2023 15:02:18 12/09/2023 text/html HPI Notes: Pain Management Abdominal Pain Reported by patient. Notes: Sudden onset RLQ pain Wednesday night, started as he stood up from a chair. Sharp, stabbing in area of visible bulging, also felt some pressure/pain in rectal area. Reports area of bulging approx 3cm x 5cm. medial and inferior to R iliac crest. He got himself into bed, and states pain and bulging resolved within minutes. Has chronic constipation, on prn opioids for back pain that he takes several times per week. Does take Miralax, tries to hydrate. Had appendectomy 1969, umbilical hernia repair (?year). MARAH SUGGS, [facility]- [address], [place], [address], [facility], [facility] 12/09/2023 15:21:25 02/10/2024 text/html HPI Notes: Ovidio here today for follow-up of history of low back pain, knee pain, recent hernia repair, mackenzie-incisional irritation, dizziness MD [address], [place], [address], [facility], [facility]. 02/23/2024 20:58:44 05/16/2024 text/html HPI Notes: Ovidio here today for f/u of h/o stroke, BAILEY, afib, HTN MD [address], [place], [address], [facility], [facility]. 05/19/2024 05:39:04
--- OUTSIDE RECORDS SUMMARY | 2024-07-24 17:18 | XMS_ITS | Clinical Summary ---
Author Organization [facility] [place] [address] Care Team Providers Care Handbag Operator Name Role Phone Radha Mckeon MD Primary Care Provider [phone] Allergies Active Allergy Reactions Criticality Noted Date Comments Amitriptyline Palpitations,Other ( See Comments) Medium 01/23/2017 Adverse drug effect Other reaction(s): heart races, Other (See Comment) Atorvastatin Other (See Comments) 01/23/2017 Adverse effect caused liver enzyme abnormalitiies Other reaction(s): Other (See Comments) Adverse effect caused liver enzyme abnormalitiies Other reaction(s): Other (See Comment) Flecainide Other (See Comments) 01/23/2017 Adverse effect caused [place] and QRS prolongation Other reaction(s): Other (See Comments) Adverse effect caused [place] and QRS prolongation Other reaction(s): Other (See Comment) Zolpidem High 08/27/2020 Other reaction(s): bad dreams Other reaction(s): bad dreams Other reaction(s): bad dreams Medications Medication Sig Dispensed Refills Start Date End Date Status baclofen (LIORESAL) 10 mg tablet Take 10 mg by mouth nightly as needed. Active simvastatin (ZOCOR) 10 mg tablet Take 10 mg by mouth nightly. Active levothyroxine (Synthroid) 100 mcg Tablet Take 100 mcg by mouth daily. Active verapamil (CALAN-SR) 120 mg Tablet Sustained Release Take 1 tablet by mouth daily. 90 tablet 3 07/27/2017 Active Additional Information Patient taking differently:120 mg OralNIGHTLY, Reported on 11/09/2019 BOTOX 200 unit Recon Soln Inject 200 Units as directed Q 3 Months. 09/14/2017 Active Triamcinolone Acetonide 0.025 % Lotion Apply topically as needed. Active SUMAtriptan (IMITREX) 100 mg Tablet Take 100 mg by mouth as needed for Migraine. Initial dose: 25 mg, 50 mg, or 100 mg (take with fluids). May repeat dose after 2 hours. Max daily dose: 200 mg Active lamoTRIgine (LAMICTAL) 25 mg Tablet Take 50 mg by mouth 2 times daily. 10/10/2019 Active fluticasone propionate (FLONASE) 50 mcg/actuation [place], Suspension INSTILL 1SPRAY IN EACH NOSTRIL TWICE A DAY 02/27/2020 Active acyclovir (ZOVIRAX) 200 mg CapsuleIndications :prn 1 capsule as needed. Indications: prn Active diclofenac (VOLTAREN) 1 % Gel Apply topically Once daily as needed. Active tamsulosin (Flomax) 0.4 mg Capsule TK 1 C PO QD 04/23/2020 Active lidocaine-prilocai ne (EMLA) Cream as needed. 09/16/2020 Active polyethylene glycoL (Miralax) 17 gram Powder in Packet Take 17 g by mouth as needed. 11/17/2019 Active senna-docusate (Pericolace) 8.6-50 mg Tablet Take 2 tablets by mouth as needed. 11/17/2019 Active zonisamide (ZONEGRAN) 50 mg Capsule TAKE 1 CAPSULE BY MOUTH EVERY NIGHT AT BEDTIME 06/16/2021 Active Emgality Pen 120 mg/mL Pen Injector INJECT 1 PEN SUBCUTANEOUSLY ONCE MONTHLY 06/09/2021 Active Xarelto 20 mg Tablet Take 1 tablet by mouth daily. 05/24/2022 Active oxyCODONE (Roxicodone) 5 mg Tablet Take 1-2 tablets by mouth every 4 hours as needed for Pain. 42 tablet 05/20/2022 Active Additional Information Patient taking differently:5-10 mg OralPRN, Pain, Reported on 06/18/2022 magnesium hydroxide (MILK OF MAGNESIA ORAL) Take by mouth as needed. Active multivitamin (THERAGRAN) Tablet Take 1 tablet by mouth daily. Active finasteride (Proscar) 5 mg tablet Take 5 mg by mouth daily. 04/02/2023 Active benzonatate (Tessalon) 200 mg capsule Take 200 mg by mouth 3 times daily as needed for Cough. 01/05/2023 Active acetaminophen (Tylenol) 500 mg tablet as needed. 01/16/2017 Active SUMAtriptan (IMITREX) 20 mg/actuation [place], Non-Aerosol 1 spray by Nasal route as needed. Active Ubrelvy 100 mg tablet 07/09/2023 Active valACYclovir (Valtrex) 500 mg tablet 500 mg. prn 12/24/2021 Active metoprolol succinate XL (Toprol-XL) 100 mg ER 24 hr tabletIndications: Paroxysmal atrial fibrillation Take 1 tablet by mouth daily. 90 tablet 3 04/27/2024 Active Active Problems Patient Care Coordination No te Formatting of this note migh t be different from the original. [place] [employer] [facility] Medical Marijuana Registry Signed with Pain Management on 04/26/2020. Problem Noted Date Diagnosed Date ILR at EOL - no telemetry 07/07/2022 S/p C4-6 ACDF 05/19/22 (Forrest) 05/19/2022 Thrombocytopenia 04/28/2022 Radiculopathy of cervical region 05/30/2021 Trigger middle finger of right hand 05/16/2021 s/p right long finger A1 pul shani release for trigger finger 05/15/21 (Dr Duong) 05/15/2021 Radiculopathy of cervical region 03/23/2021 Neck pain 12/05/2020 Numbness and tingling in left arm 12/05/2020 History of loop recorder - Medtronic LINQII 11/01 Overview (11/17/2019): ILR Postoperative anemia due to acute blood loss S/P right total knee arthrop lasty revision - poly swab and patellar revision [place] 11/15/2019 11/15/2019 Thrombopenia 10/04/2019 Essential hypertension 10/04/2019 Paroxysmal atrial fibrillation 10/04/2019 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 History of surgery 11/24/2016 Overview (11/24/2016): --S/p pyloric stenosis surgery 1951, appendectomy 1969, right carpal tunnel surgery 1974, spinal fusion 1993 (redo back surgery 1995, 1998), umbilical hernia repair 1997, left carpal tunnel repair 2002, left elbow surgery 2004, right total knee replacement 2009. S/P knee replacement 02/29/2012 Overview (02/29/2012): SURGERY DATE: 01/14/2010 MICHAEL CHAVEZ MD PROCEDURE PERFORMED: Right total knee arthroplasty. IMPLANTS USED: All implants were from the DePuy Sigma total knee system. 1. A size 4 press-fit cruciate retaining porous femoral component. 2. A size 4 press-fit porous rotating platform tibial tray. 3. A size 4 x 10-mm rotating platform polyethylene. 4. A 35-mm round patella. 5. Half batch of quick set cement. A-fib 08/13/2011 Overview (11/24/2016): --Recurrent AF --S/P cardioversions x 3 (09/2005, 01/2006, 07/2007). --AF that has resolved spontaneously (12/2006, etc). 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 --Flecainide stopped after 4 doses due to [place]/QRS prolongation, 12/2007. --Started on dofetilide 500mcg BID 12/2007 - several episodes/month lasting seconds to minutes of sensation of tachcycardia, sometimes associated with lightheadedness; unable to correlate to specific tachyarrythmia by holter or EKG for a long time. --Increasing frequency and severity late 2011 - repeat event monitoring 10/2012 revealed afib and AT/perhaps mid-RP tachycardia. --Echo 09/09/2007 - normal; LVEF 60%. --Nuclear stress 12/12/2007 [place], 6:45, 8.10 METS, 62-104HR, LVEF 63%. --Acutely successful PVI ablation 12/12/2012. --Post ablation pleuropericarditis. --Increased frequency of periodic palpitations 2015. -- Admitted to [facility] 08/27/16, with A. fib at a rate of 112 bpm on metoprolol 100 mg daily/verapamil 180 mg daily; DCCV; metoprolol increased to 150 mg daily; started Eliquis. --Echo 11/2016: EF 58%. --Repeat afib ablation 11/23/2016: Veins still isolated; posterior wall isolation performed, stage IV. 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 --Currently on oxycodone. --Lumbar radiculopathy. Resolved Problems Problem Noted Date Diagnosed Date Resolved Date Thrombocytopenia - chronic 12/16/2012 0 12/14/2018 Encounters Date Type Department Care Team Description 07/20/2024 2:30 PM EDT Office [place] [address] Joaquin Metzger, GARRISON Neuropathic pain of both feet; Onychodystrophy; Pain in toe of left foot; Pain in toe of right foot 07/20/2024 Travel 07/19/2024 11:00 AM EDT - 07/19/2024 11:59 PM EDT Hospital Encounter Non-[place] [address] Arrived Discharge Disposition: Home 06/19/2024 11:00 AM EDT - 06/19/2024 11:59 PM EDT Hospital Encounter Non-[place] [address] Discharge Disposition: Home 06/06/2024 Telephone [place] [address] Sri Jasmine 05/29/2024 Interpretation Only [facility] in [address] [address] Alfred Norman DO 05/20/2024 11:00 AM EDT - 05/20/2024 11:59 PM EDT Hospital Encounter Non-[place] [phone] Discharge Disposition: Home 04/27/2024 Refill Cardiology at [address] [address] Diogo Robb PA Medication Refill 04/25/2024 2:30 PM EDT Office [place] [phone] Joaquin Metzger, GARRISON Neuropathic pain of both feet; Onychodystrophy; Pain in toe of left foot; Pain in toe of right foot 04/25/2024 Travel from Last 3 Months Immunizations Name Administration Dates Next Due Influenza Vaccine, Whole 08/01/2009,08/01/2007 Pneumococcal Polysaccharide (Pneumovax 23) 12/10 Family History Medical History Relation Comments Cancer Brother panceratic Heart Disease Father Heart Disease Mother Relation Status Comments Brother Father Mother Social History Tobacco Use Types Packs/Day Years [...] on file Sexual Orientation Not on file Last Filed Vital Signs Vital Sign Reading Time Taken Comments Blood Pressure 161/85 02/24/2024 2:43 PM EDT Pulse 66 02/24/2024 2:43 PM EDT Temperature 36.1 ??C (97 ??F) 02/24/2024 2:43 PM EDT Respiratory Rate 18 02/24/2024 2:43 PM EDT Oxygen Saturation 100% 02/24/2024 2:43 PM EDT Inhaled Oxygen Concentration - - Weight 72.9 kg (160 lb 11.5 oz) 02/24/2024 2:43 PM EDT Height 180.3 cm (5' 10.98) 02/24/2024 2:43 PM E DT Body Mass Index 22.43 02/24/2024 2:43 PM EDT Plan of Treatment Upcoming Encounters Date Type Department Care Team (Late st Contact Info) Description 08/18/2024 11:00 AM EDT Hospital Encounter Non-[place]vasive [place] [phone] Arrived 02/22/2025 1:30 PM EDT Appointment Hematology [place] [address] 02/22/2025 2:30 PM EDT Office Visit Hematology [place] [address] Ellis Childers MD [facility] DR HEMATOLOGY AND ONCOLOGY [place], [place] [id number] Felicita Landa APRN [facility] HEMATOLOGY AND ONCOLOGY [place], [place] [id number] Health Maintenance Due Date Last Done Comments CT Colonography 1952 Colonoscopy 1952 Colorectal Cancer Screening 1952 FIT DNA 1952 FIT 1952 Sigmoidoscopy (10 year) with FIT yearly 1952 Sigmoidoscopy 1952 Tetanus/Diphtheria/Pertussis Vaccines (1 - Tdap) 1971 Zoster vaccine (1 of 2) 2002 AAA Screen 2017 Pneumoccocal Vaccine: 65+ (2 of 2 - PCV) 2017 12/10/2007 Covid-19 Vaccine (2 - 2022-2 4 season) 2024 04/30/2022 Influenza (Flu) vaccine (1 o f 1 - Influenza standard series) 07/02/2024 08/01/2009, 08/01/2007 Hepatitis C Screening Completed 04/01/2022 Diabetes Screening (HgbA1C o r Glucose) Discontinued 05/03/2023, 07/02/2022, 05/20/2022, Additional history exists Medical Devices Implanted Type Area Biological Photographer Device Identifier Shelf Expiration Date Model / Serial / Lot Inser,Sgm,Aox,Cv d,Sz4,10 ([id number]) (Autoreq) - [id number] Implanted:Qty: 1 on 11/15/2019 by Sukhjinder Jauregui MD at [facility] IMPLANTS Right: Knee [employer] - EMMA KARLA 07/01/2023 1961-92 -041 / / [id number] Cemen,Bne,Cmw2,G nta,20gm ([id number]) - [id number] Implanted:Qty: 1 on 11/15/2019 by Sukhjinder Jauregui MD at [facility] IMPLANTS Right: Knee [employer] [facility] - EMMA KARLA 04/30/2022 5450-32 -[id number] / / [id number] Mercado,Pfc,Sgm,Ov l,3pg,Sm,35mm ([id number]) (Autoreq) - [id number] Implanted:Qty: 1 on 11/15/2019 by Sukhjinder Jauregui MD at [facility] IMPLANTS Right: Knee [employer] [facility] - EMMA KARLA 02/29/2024 96-0101 / / [id number] Graft Bone Block [id number] Lordotic Asr Cortical-Cancell ous ([id number]) (Autoreq) - [id number] Implanted:Qty: 1 on 05/19/2022 by Rey Clayton MD at [facility] IMPLANTS Spine Cervical [employer] - MED[employer]IC [id number] 01/06/2025 [id number] / [id number] / [id number] Graft Bone Block [id number] Lordotic Asr Cortical-Cancell ous ([id number]) (Autoreq) - [id number] Implanted:Qty: 1 on 05/19/2022 by Rey Clayton MD at [facility] IMPLANTS Spine Cervical [employer] - MEDTR[employer]IC [id number] 03/07/2023 [id number] / [id number] Plate Spinal Anterior Cervical 34mm Level 1 Ti ([id number]) (Autoreq) - [id number] Implanted:Qty: 1 on 05/19/2022 by Rey Clayton MD at [facility] IMPLANTS Spine Cervical [employer] MED 150.234 / / Screw Spinal 4.2x14mm Posterior Cervical St Sld Ti ([id number]) (Autoreq) - [id number] Implanted:Qty: 6 on 05/19/2022 by Rey Clayton MD at [facility] IMPLANTS Spine Cervical [employer] 150.814 / / Mdt Linq 2 [id number] Implanted:Qty: 1 on 08/10/2022 by Garrett Benson MD Implantable Loop Recorder Chest Medtronic - [id number] / [id number] / Description:When scanned at [facility]), the above implant ([id number]) is MR Conditional up to 3T. Patient will need an initial one view chest x-ray to confirm placement and then no further imaging afterwarrd unless they diogo yes to Pacemaker/Defibrillator, DBS, SCS, VNS or have devcie removed. The following parameter must be followed when scanning: Item name / identification LINQ II LNQ22 Insertable Laborer Marine Terminal (ICM). Item sharples machine operator Talkray. Additional resources for MRI safety information [employer]. Warning statement A patient with the LINQ II ICM may be safely scanned under the conditions specified below. Failure to follow these conditions may result in injury to the patient. Static magnetic field strength (B0) [T] =3 T, Type of nuclei Hydrogen proton. Static magnetic field (B0) orientation Horizontal, cylindrical bore Perpendicular to patient, AP (anterior ? posterior), Perpendicular to patient, LR (left ? right). Maximum spatial field gradient (SFG) [T/m and gauss/cm] =25 T/m (2500 gauss/cm). Maximum gradient slew rate per axis (T/m/s) =200 T/m/s. RF transmit coil type Integrated whole-body transmit RF coil, Detachable head transmit/receive RF coil, Detachable extremity transmit/receive RF coil, RF receive coil Any receive-only RF coil may be used. RF operating mode or constraints First level controlled operating mode or normal operating mode. Maximum B1+URSULA [??T] No limit (see entry for Whole-body specific absorption rate). Whole-body specific absorption rate (KANNAN) [W/kg]. Also called whole-body (averaged) KANNAN =4 W/kg, Head KANNAN [W/kg] =3.2 W/kg. Scan duration and wait time No limits on scan duration or post-scan wait time for the labeled RF conditions. No limits on post-insertion wait time prior to an MRI scan for the labeled RF conditions. Anatomy at isocenter No patient-landmark restrictions. Aris Hagen RT(R)(CT)(MR)(ARRT), MRI Safety Technologist, 11/29/2023 Explanted Type Area Biological Photographer Device Identifier Shelf Expiration Date Model / Serial / Lot Pin Distraction 14mm Ant Cerv Fusn Ti ([id number]) - [id number] Explanted:Qty: 2 on 05/19/2022 by Rey Clayton MD at [facility] IMPLANTS Spine Cervical [employer] - MEDICAL DP-14-TY / / Mdt : Lnq11 : [id number] Implanted:2017 (Quantity not on file) Explanted:2021 by Garrett Benson MD (Quantity not on file) Implantable Diagnostic Monitor [employer] LNQ11 / [id number] / Description:When MRI is perf ormed @ [facility], the above loop recorder LNQ11 is MR Conditional up to 3 Funmi, when the following conditions are met: A patient with a Reveal LINQ device can be safely scanned in an MR system that meets the following conditions with no post-insertion waiting required. Failure to follow these conditions for use may result in a hazard to the patient during an MRI scan: Horizontal cylindrical bore magnet, clinical MRI systems with a static magnetic field of 1.5 Funmi (T) or 3.0 T must be used. Hydrogen proton MRI equipment must be used. Maximum spatial gradient of the static magnetic field specification must be =25 T/m (2500 gauss/ cm). Whole body gradient systems with gradient slew rate specification must be =200 T/m/s per axis. The Whole Body Specific Absorption Rate (WB-KANNAN) as reported by the MRI equipment must be =4.0 W/kg; the head KANNAN as reported by the MRI equipment must be =3.2 W/kg. Do not use local transmit coils on the chest, trunk, or shoulder region. There are no restrictions on the placement of receive-only coils, and there are no restrictions on the use of local transmit or receive coils for imaging of the head or extremities. A 2 view chest x-ray must be obtained within 90 days of the MRI. CARLOS Valladares [facility], MRI Safety Technologist 01/02/2019 Procedures Procedure Name Priority Date/Time Associated Diagnosis Comments PRG ILR INTERROGATION REMOTE UP TO 30 DAYS Routine 06/30/2024 2:05 AM EDT PRG ILR INTERROGATION REMOTE UP TO 30 DAYS Routine 06/01/2024 2:05 AM EDT XR PELVIS AND LAT HIP LEFT STAT 05/29/2024 5:37 PM EDT PRG ILR INTERROGATION REMOTE UP TO 30 DAYS Routine 05/01/2024 2:02 AM EDT COMPREHENSIVE METABOLIC PANEL STAT 05/03/2023 10:00 PM EDT HC HEPATITIS C ANTIBODY Routine 04/01/2022 10:02 AM EDT Thrombocytopenia from Last 3 Months or Most Recently Relevant to Health Maintenance Results * Cardiac Device Check - Remote (06/30/2024 2:05 AM EDT) Only the most recent of3 resultswithin the time period is included. Anatomical Region Laterality Modality Other 06/30/2024 2:05 AM EDT Sera Arteaga MD IMPLANTABLE CARDIAC DEVICE * XR Pelvis & Lat Hip Left (Generic) (05/29/2024 5:37 PM EDT) PT CLASS E RAD ADMITDTTM [id number] RAD PT [facility] INFO [id number]^NORMAN^R SOFI^J RAD EXAM DESC XRPELHIPLL^XR PELVIS AND HIP LAT LT^RIS [facility] WORKSTATION ID [id number] [facility] Anatomical Region Laterality Modality Pelvis, Hip Left [...] who have questions please contact the health critical care physician assistant that requested your imaging first. ? Electronically signed by: Verna Stock MD, [facility] ([phone]), at 05/29/2024 6:17 PM Narrative 05/29/2024 6:17 PM EDT EXAMINATION: XR [...] patients who have questions please contactthe health critical care physician assistant that requested your imaging first. Alfred Norman DO IM DX ORDERABLES * (ABNORMAL) Comprehensive metabolic panel (non-fasting) (05/03/2023 10:00 PM EDT) Glucose 165 65 - 199 mg/dL [facility] Comment:Diabetes: >=200 mg/d L plus symptoms Blood Urea Nitrogen 22(H) 10 - 20 mg/dL [facility] Creatinine 1.17 0.80 - 1.50 mg/dL [facility] Sodium 141 135 - 145 mmol/L [facility] Potassium 4.2 3.5 - 5.0 mmol/L [facility] Comment: Please note: ??Patients with WBC >100,000 may have falsely elevated Potassium levels. ??For accurate Potassium quantification in these patients send serum separator tube (gold top) for subsequent determinations. ??Contact the Clinical Chemistry Laboratory if there are any questions. Chloride 105 98 - 107 mmol/L [facility] Carbon Dioxide 25 22 - 31 mmol/L [facility] Anion Gap 11 5 - 15 mmol/L [facility] Calcium 9.2 8.5 - 10.5 mg/dL [facility] Protein, Total 6.5 6.1 - 8.0 g/dL [facility] Albumin 4.2 3.2 - 5.2 g/dL [facility] Aspartate Aminotransferase 37 0 - 39 unit/L [facility] Alanine Aminotransferase 17 0 - 55 unit/L [facility] Alkaline Phosphatase 94 40 - 130 unit/L [facility] Bilirubin, Total 0.6 0.2 - 1.3 mg/dL [facility] Est Glomerular Filtration Rate 67 >=60 mL/min/1. 73 m?? [facility] Comment: This patient's estimated GFR was calculated using the 2020 CKD-EPI equation. The estimated GFR can vary from the measured GFR by up to 30% in the absence of rapidly changing kidney function. Assessment of the estimated GFR is not appropriate when creatinine concentrations are rapidly changing. For clinical situations in which a more precise estimate of GFR is necessary, consider alternative methods of GFR estimation such as a 24-hour urine creatinine clearance. Assignment of CKD stage 1-5 for patients with an eGFR near the transition point between stages may be based on clinical assessment of muscle mass and symptoms in addition to eGFR. Blood 05/03/2023 10:0 0 PM EDT 05/03/2023 10:11 PM EDT Narrative Resulting Agency Comment Spec In Lab Garrett Caal APRN CHEMISTRY ORDERABLES [facility] [place] [address] * Hepatitis C Antibody (04/01/2022 10:02 AM EDT) Hepatitis C Antibody Negative Negative [facility] Blood 04/01/2022 10:0 2 AM EDT 04/01/2022 10:18 AM EDT Narrative Resulting Agency Comment Spec In Lab Ellis Childers MD CHEMISTRY ORDERA BLES Performing Organization Address City/[facility] Co de Phone Number [facility] [place] [address] from Last 3 Months or Most Recently Relevant to Health Maintenance Advance Directives Documents on File Type Date Recorded Patient Parquet Floor Layer'S Helper Expl anation Personal Parquet Floor Layer'S Helper 11/09/2019 4:16 PM KD Advance Directives and Living Will 06/07/2013 3:43 PM 12/12/2012 Personal Parquet Floor Layer'S Helper 08/03/2023 3:06 PM Marguerite Ramos/lee * Attempt Cardiopulmonary Resuscitation - Inpatient (Latest Code Status on File) Date Activated Date Inactivated Comments 01/06/2024 1:36 PM 01/07/2024 4:39 AM Question Answer Comments Code Status decision made by: Patient * Attempt Cardiopulmonary Resuscitation - Inpatient Date Activated Date Inactivated Comments 11/29/2023 12:19 PM 11/29/2023 4:01 PM Question Answer Comments Code Status decision made by: Patient * Attempt Cardiopulmonary Resuscitation - Inpatient Date Activated Date Inactivated Comments 08/10/2022 3:56 PM 08/10/2022 8:06 PM Question Answer Comments Code Status decision made by: Patient * Attempt Cardiopulmonary Resuscitation - Inpatient Date Activated Date Inactivated Comments 08/10/2022 3:52 PM 08/10/2022 3:56 PM Question Answer Comments Code Status decision made by: Patient * Attempt Cardiopulmonary Resuscitation - Inpatient Date Activated Date Inactivated Comments 05/19/2022 11:49 AM 05/20/2022 4:33 PM Question Answer Comments Code Status decision made by: Patient Care Teams Handbag Operator Relationship Specialty Start Date End Date Radha Mckeon MD [address] [place] [address] PCP - General 09/23/10
--- OUTSIDE RECORDS SUMMARY | 2024-07-24 17:18 | XMS_ITS | Encounter Summary ---
Author Organization [facility] [place] [address] Care Team Providers Care Police Or Patrol Park Officer Name Role Phone Radha Mckeon MD Primary Care Provider [phone] Encounter Details Date Type Department Care Team (Latest Contact Info) Description 06/19/2024 11:00 AM EDT - 06/19/2024 11:59 PM EDT Hospital Encounter Non-Invasive [place] [phone] Discharge Disposition: Home Social History Tobacco Use [...] place to sleep or slept in a prison (including now)? No 04/01/2022 DH IPV Inpatient [...] mg tablet 07/09/2023 SUMAtriptan (IMITREX) 20 mg/actuation [place], Non-Aerosol 1 spray by Nasal route as [...] QD 04/23/2020 fluticasone propionate (FLONASE) 50 mcg/actuation [place], Suspension INSTILL 1SPRAY IN EACH NOSTRIL TWICE [...] AM EDT Hospital Encounter Non-Invasive [place] [address] Arrived 02/22/2025 1:30 PM EDT Appointment H[place]ology [place] [address] 02/22/2025 2:30 PM EDT Office Visit Hematology [place] [address] Ellis Childers MD [facility] [address] [place] [address] Felicita Landa APRN [facility] [address] [place] [address] documented as of this encounter Procedures Procedure Name Priority Date/Time Associated Diagnosis Comments PRG ILR INTERROGATION REMOTE UP TO 30 DAYS Routine 06/01/2024 2:05 AM EDT documented in this encounter Results * Cardiac Device Check - Remote (06/01/2024 2:05 AM EDT) Anatomical Region Laterality Modality Other 06/01/2024 2:05 AM EDT Omar Corcoran MD IMPLANTABLE CARDIAC DEVICE documented in this encounter Visit Diagnoses Not on filedocumented in this encounter Care Teams Police Or Patrol Park Officer Relationship Specialty Start Date End Date Radha Mckeon MD [address] [place] [address] PCP - General 09/23/10 documented as of this encounter
--- OUTSIDE RECORDS SUMMARY | 2024-07-24 17:19 | XMS_ITS | Encounter Summary ---
Author Organization [facility] [place] [address] Care Team Providers Care Agriculture Consultant Name Role Phone Radha Mckeon MD Primary Care Provider [phone] Encounter Details Date Type Department Care Team (Late st Contact Info) Description 11/29/2023 12:21 PM EST Anesthesia Event Outpatient [place] [address] Jerry Falcon MD [facility] [place] [address] Demian Dao MD [facility] [place] [address] Anesthesia Record Procedure Summary Procedure Name Responsible Anesthesiologist Anesthesia Start Time Anesthesia Stop Time TENDON SHEATH INCISION (TRIGGER FINGER) (WRVU 3.11) (Left: Finger) Jerry Falcon MD 11/29/23 1221 11/29/23 1307 Events Date Time Event Comment 11/29/2023 1221 AN Verify 1221 Start 1221 An Start Data 1223 An Induction 1226 Anesthesia Ready 1232 1237 Quick Note Local injected per surgeon 1240 An Tourn Inflated 1241 Procedure Start 1254 An Tourn Deflated 1303 Procedure Stop 1303 an stop data 1305 Recovery or ICU Handoff Shannan ent care was transferred to the destination unit staff after review of the patient's medical history, current anesthetic/surgical status and plan, according to the Provider Handoff Checklist. 1307 Stop Meds Name Total Midazolam 2 mg fentaNYL 50 mcg IV Lidocaine 20 mg Propofol 50 mg Propofol INF 117.6 mg ceFAZolin 2 g lactated ringers 500 mL * Agents Name O2 O2 Auxiliary Flowmeter 1 * Blood No blood administrations on file. Lines, Drains, and Airways Type Details Placement Removal Incision 05/19/22; 0821; neck 05/19/22 08 21 by Al Barlow RN Incision 08/10/22; 1618; anterior; chest 08/10/22 1618 by Kate Witt RN Incision 08/10/22; 1639; anterior; chest 08/10/22 1639 by Kate Witt RN (RETIRED) Peripheral IV Line - Single Lumen 05/03/23; 2211; median cubital vein (antecubital fossa), right; 20 gauge; LDA not present upon assessment; 01/06/24; 1340 05/03/23 2211 by Yaw Caldera NRP 01/06/24 1340 by Sanaz Ariza RN PIV 11/29/23; 1131; 20 gauge; metacarpal vein (top of hand), right; Anatomical Landmarks; Janeen HIRSCH; intradermal injection; no longer indicated, catheter/device intact, removed per policy/procedure; 11/29/23; 1345 11/29/23 1131 by Janeen Braden RN 11/29/23 1345 by Katherine Alford RN documented in this encounter Social History Tobacco Use Types Packs/Day Years [...] place to sleep or slept in a care home (including now)? No 04/01/2022 DH IPV Inpatient [...] on file documented as of this encounter OR Notes * Anesthesia Postprocedure Evaluation - Jerry Falcon MD - 11/29/2023 2:21 PM EST Department of Anesthesiology Post-procedure Note Patient: Malik Machado Procedure Summary Date: 11/29/23 Room / Location: [facility] OR [address] [place] [address] [facility] Anesthesia Start: 1221 Anesthesia Stop: 1307 Procedure: TENDON SHEATH INCISION (TRIGGER FINGER) (WRVU 3.11) (Left: Finger) Diagnosis: Trigger finger, left middle finger (Left Long finger and Thumb trigger digits) Surgeons: Jovan Duong MD Responsible Provider: Jerry Falcon MD Anesthesia Type: MAC ASA Status: 3 All Anesthesia Providers: Anesthesiologist: Jerry Falcon MD; Demian Dao MD ACCOUNTS PAYABLE TECHNICIAN: Marzena García CRNA Vitals Value Taken Time BP 151/81 11/29/23 1330 Temp 36.3 ??C (97.3 ??F) 11/29/23 1307 Pulse 55 11/29/23 1334 Resp 16 11/29/23 1307 SpO2 98 % 11/29/23 1334 Pain Level 0 11/29/23 1330 Vitals shown include unfiled device data. Patient Location: PACU/[facility] Level of Consciousness: Awake and Alert Pain Management: Satisfactory Analgesia PONV: None Cardiovascular Status: Hemodynamically Stable Respiratory Status: Stable Respiratory Status Postoperative Fluid Status: Intravascular EUvolemia Possible Anesthetic Complications: NONE apparent at time of evaluation Final Primary Anesthesia Type: MAC (The anesthetic type performed was the same as planned.) Comments: * Anesthesia Preprocedure Evaluation - Demian Dao MD - 11/29/2023 11:29 AM EST Pre-Anesthesia Evaluation for: Malik Machado a 73 y.o. male. Procedure(s): TENDON SHEATH INCISION (TRIGGER FINGER) (VU 3.11) Patient Active Problem List Diagnosis Date Noted ??? A-fib 08/13/2011 ??? Hypertension 08/13/2011 ??? ILR at EOL - no telemetry 07/07/2022 ??? S/p C4-6 ACDF 05/19/22 ([facility]) 05/19/2022 ??? Thrombocytopenia 04/28/2022 ??? Radiculopathy of cervical region 05/30/2021 ??? Trigger middle finger of right hand 05/16/2021 ??? s/p right long finger A1 kayla release for trigger finger 05/15/21 (Dr Duong) 05/15/2021 ??? Radiculopathy of cervical region 03/23/2021 ??? Neck pain 12/05/2020 ??? Numbness and tingling in left arm 12/05/2020 ??? History of loop recorder - Medtronic LINQII 11/17/2019 ??? Postoperative anemia due to acute blood loss 11/17/2019 ??? S/P right total knee arthroplasty revision - poly swab and patellar revision [place] 11/15/2019 11/15/2019 ??? Thrombopenia 10/04/2019 ??? Essential hypertension 10/04/2019 ??? Paroxysmal atrial fibrillation 10/04/2019 ??? 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 Right knee pain 05/29/2019 ??? Debility 05/29/2019 ??? Lightheadedness 12/24/2016 ??? Adverse drug effects 11/24/2016 ??? History of surgery 11/24/2016 ??? S/P knee replacement 02/29/2012 ??? 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 Chronic back pain, causing disability Past Medical History: Diagnosis Date ??? Antiplatelet or antithrombotic long-term use apixaban ??? Chronic back pain greater than 3 months duration ??? Chronic pain spine, has had 3 spine surgeries ??? High blood pressure controlled with medication ??? Hypothyroid treated with medication ??? Irregular heart beat afib ??? Lightheadedness 12/24/2016 ??? FCI current use of opiate analgesic oxycodone, prescribed by PCP ??? Migraine ??? Postoperative anemia due to acute blood loss 11/17/2019 ??? Thrombocytopenia - chronic 12/16/2012 ??? Thrombocytopenia - chronic 12/16/2012 Past Surgical History: Procedure Laterality Date ??? CREATED BY INTERFACE Entered not Verified Procedure Date: 11/11/2010 ??? CREATED BY INTERFACE FACET DENERATION RADIOFREQUENCY Procedure Date: 02/05/2003 ??? CREATED BY INTERFACE FACET DENERATION RADIOFREQUENCY-EA ADDL LEVEL Procedure Date: 02/05/2003 ??? CREATED BY INTERFACE FACET DENERATION RADIOFREQUENCY-EA ADDL LEVEL Procedure Date: 02/05/2003 ??? CREATED BY INTERFACE FACET LUMBAR BLOCK Procedure Date: 11/20/2002 ??? CREATED BY INTERFACE FACET LUMBAR BLOCK-EA ADD'L LEVEL Procedure Date: 11/20/2002 ??? CREATED BY INTERFACE FACET LUMBAR BLOCK-EA ADD'L LEVEL Procedure Date: 11/20/2002 ??? CREATED BY INTERFACE FLUROSCOPY USE(PAIN) Procedure Date: 02/05/2003 ??? CREATED BY INTERFACE FLUROSCOPY USE(PAIN) Procedure Date: 11/20/2002 ??? CREATED BY INTERFACE TOTAL KNEE ARTHROPLASTY / RIGHT/ROTATING PLATFORM CURVED Procedure Date: 01/14/2010 ??? JOINT REPLACEMENT [id number] ??? PACEMAKER IMPLANT loop recorder ??? PRO ALLOGRAFT FOR SPINE SURGERY ONLY STRUCTURAL Bilateral 05/19/2022 ALLOGRAFT FOR SPINE SURGERY ONLY; STRUCTUAL (WRVU 1.81) performed by Rey Clayton MD at [facility] MAIN OR ??? PRO ANTERIOR INSTRUMENTATION 2-3 VERTEBRAL SEGMENTS Bilateral 05/19/2022 ANT. SPINAL INSTRUMENTATION, 2-3 VERTEBRA, SEGMENTED (WRVU 11.94) performed by Rey Clayton MD at [facility] MAIN OR ??? PRO ARTHRD ANT INTERDY CERVCL BELW C2 EA ADDL NTRSPC Bilateral 05/19/2022 ARTHRODESIS ANT INTERBDY CERVCL BELOW C2 EA ADDL INTRSPACE (WRVU 6.5) performed by Rey Clayton MD at [facility] MAIN OR ??? PRO ARTHRODESIS, ANT INTERBODY,DECOMPRESSION; CERVICAL BELOW C2 Bilateral 05/19/2022 ARTHRODESIS, ANT INTERBODY,DECOMPRESSION; CERVICAL BELOW C2 (WRVU 25) performed by Rey Clayton MD at [facility] MAIN OR ? ? PRO DIAGNOSTIC BONE MARROW BIOPSIES & ASPIRATIONS N/A 04/22/2022 ([facility]) BONE MARROW BIOPSY AND ASPIRATION; DIAGNOSTIC performed by Ellis Guy MD at [facility] ??? PRO INCISE FINGER TENDON SHEATH Right 05/15/2021 TENDON SHEATH INCISION (TRIGGER FINGER) (WRVU 3.11) performed by Jovan Duong MD at [facility] MAIN OR ??? PRO INSERTION SUBQ CARDIAC RHYTHM MONITOR W/PRGRMG Left 08/10/2022 INSERTION, SUBQ CARDIAC RHYTHM MONITOR, INCLUDING PROGRAMMING performed by Garrett Benson MD at [facility] CATH LABS ??? PRO REMOVAL SUBCUTANEOUS CARDIAC RHYTHM MONITOR Left 08/10/2022 REMOVAL, SUBQ CARDIAC RHYTHM MONITOR performed by Garrett Benson MD at [facility] CATH LABS ??? PRO REVISE KNEE JOINT REPLACE, ALL PARTS Right 11/15/2019 @TOTAL KNEE REVISION ARTHROPLASTY, COMPLETE (WRVU 27.11) performed by Sukhjinder Jauregui MD at [facility] MAIN OR ??? XR JOINT ASPIRATION - LARGE JOINT RIGHT Right 01/02/2019 XR Fluoro Guided Joint Aspiration Large Right 01/02/2019 [facility] RAD XRAY Social History Tobacco Use ??? Smoking status: Former Packs/day: 2.00 Years: 16.00 Additional pack years: 0.00 Total pack years: 32.00 Types: Cigarettes Quit date: 11/09/1982 Years since quittin.0 ??? Smokeless tobacco: Never Substance Use Topics ??? Alcohol use: No Social History Substance and Sexual Activity Drug Use Never Allergies Allergen Reactions ??? Zolpidem Other reaction(s): bad dreams Other reaction(s): bad dreams Other reaction(s): bad dreams ??? Amitriptyline Palpitations and Other (See Comments) Adverse drug effect Other reaction(s): heart races, Other (See Comment) ??? Atorvastatin Other (See Comments) Adverse effect caused liver enzyme abnormalitiies Other reaction(s): Other (See Comments) Adverse effect caused liver enzyme abnormalitiies Other reaction(s): Other (See Comment) ??? Flecainide Other (See Comments) Adverse effect caused SD and QRS prolongation Other reaction(s): Other (See Comments) Adverse effect caused SD and QRS prolongation Other reaction(s): Other (See Comment) Medications: MAR and/or home medications have been reviewed. Physical Exam: Preprocedure Vitals Current as of 11/29/23 1129 BP: 155/81 Pulse: 63 Resp: 16 SpO2: 99 Temp: 36.2 ??C (97.2 ??F) Height: 180.3 cm (5' 11) (11/29/23) Weight: 73.5 kg (162 lb) (11/29/23) BMI: 22.59 IBW: 75.3 kg (165 lb 14.8 oz) Last edited 11/29/23 1100 by TM Airway Assessment: Mallampati: II TM distance: >3 FB Neck ROM: full Cardiovascular Assessment: Rhythm: irregular Pulmonary Assessment: pulmonary exam normal Dental Assessment: - normal exam Misc Assessment: Other exam findings: BP Readings from Last 3 Encounters: 11/29/23 : 155/81 08/26/23 : 160/85 05/04/23 : (!) 174/92 Last Filed Perioperative Cognitive Screening Value Time User 4AT TOTAL Score: 1 05/03/2023 10:12 PM Yaw Caldera, [place] Anesthesia Plan: ASA 3 MAC, with a(n) intravenous induction 73 y/o male presenting for left trigger finger release. PMH significant for a-fib on apixaban, htn, RBBB, thrombocytopenia, hypothyroid, chronic narcotic use, s/p acdf Allergies to zolpidem, amitriptyline, atorvastatin, flecainide NPO adequate > 4 METS exercise tolerance Plan for MAC, acetaminophen, GA backup. Informed Consent: Anesthetic plan and risks discussed with patient. Plan discussed with ACCOUNTS PAYABLE TECHNICIAN. Anesthesia Screening documented in this encounter Plan of Treatment Upcoming Encounters Date Type Department Care Team (Late st Contact Info) Description 08/18/2024 11:00 AM EDT Hospital Encounter Non-Invasive [place] [address] Arrived 02/22/2025 1:30 PM EDT Appointment Hematology [place] [address] 02/22/2025 2:30 PM EDT Office Visit Hematology [place] [address] Ellis Childers MD [facility] [address] [place] [address] Felicita Landa APRN [facility] [address] [place] [address] documented as of this encounter Visit Diagnoses Not on filedocumented in this encounter Administered Medications Inactive Administered Medications - up to 3 most recent administrations Medication Order MAR Action Action Date Dose Rate Site ceFAZolin (Ancef) (100 mg/mL) injection solution Intravenous, PRN, Starting on Wed11/29/23 at 1226, Until Wed11/29/23 at 1317, Anesthesia Intra-op, Routine Given 11/29/2023 12:26 PM EST 2 g fentaNYL (pf) (50 mcg/mL) multi-dose injection Intravenous, PRN, Starting on Wed11/29/23 at 1223, Until Wed11/29/23 at 1317, Anesthesia Intra-op, Routine Given 11/29/2023 12:32 PM EST 25 mcg Given 11/29/2023 12:23 PM EST 25 mcg lactated ringers infusion Intravenous, CONTINUOUS PRN, Starting on Wed11/29/23 at 1221, Until Wed11/29/23 at 1317, Anesthesia Intra-op New Bag 11/29/2023 12:21 PM EST lidocaine (pf) (Xylocaine) (20 mg/mL) 2% injection syringe Intravenous, PRN, Starting on Wed11/29/23 at 1223, Until Wed11/29/23 at 1317, Anesthesia Intra-op, Routine Given 11/29/2023 12:23 PM EST 20 mg midazolam (pf) (Versed) (1 mg/mL) multi-dose injection Intravenous, PRN, Starting on Wed11/29/23 at 1221, Until Wed11/29/23 at 1317, Anesthesia Intra-op, Routine Given 11/29/2023 12:24 PM EST 1 mg Given 11/29/2023 12:21 PM EST 1 mg propofoL (Diprivan) (10 mg/mL) infusion Intravenous, CONTINUOUS PRN, Starting on Wed11/29/23 at 1223, Until Wed11/29/23 at 1317, Anesthesia Intra-op, Routine New Bag 11/29/2023 12:23 PM EST 100 mcg/kg/min 44.1 mL/hr propofoL (Diprivan) 10 mg/mL bolus injection (Anesthesia) Intravenous, PRN, Starting on Wed11/29/23 at 1223, Until Wed11/29/23 at 1317, Anesthesia Intra-op Given 11/29/2023 12:25 PM EST 20 mg Given 11/29/2023 12:23 PM EST 30 mg documented in this encounter Care Teams Agriculture Consultant Relationship Specialty Start Date End Date Radha Mckeon MD [address] [place] [address] PCP - General 09/23/10 documented as of this encounter
--- OUTSIDE RECORDS SUMMARY | 2024-07-24 17:19 | XMS_ITS | Encounter Summary ---
Author Organization [facility] [place] [address] Care Team Providers Care Head Up Operator Helper Name Role Phone Radha Mckeon MD Primary Care Provider [phone] Reason for Visit * Reason Comments Routine Foot Care Encounter Details Date Type Department Care Team (Late st Contact Info) Description 04/25/2024 2:30 PM EDT Office [place] [address] Joaquin Metzger, GARRISON [facility] [place] [address] Neuropathic pain of both feet; Onychodystrophy; Pain [...] in a mcc (including now)? No 04/01/2022 DH IPV Inpatient [...] Progress Notes * Joaquin Metzger DPM - 04/25/2024 2:30 PM EDT Outpatient Podiatry Clinic Note Name: Malik Machado Age:73 y.o. MR#: [id number] Date of Service: 04/25/2024 SUBJECTIVE: Malik Machado is a very pleasant 73 y.o. 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 He also just graduated with his bachelors degree. Allergies Allergen Reactions Zolpidem Other reaction(s): bad [...] Flecainide Other (See Comments) Adverse effect caused TN and QRS prolongation Other reaction(s): Other (See Comments) Adverse effect caused TN and QRS prolongation Other reaction(s): Other (See Comment) Past Medical History: Diagnosis Date Antiplatelet or antithrombotic long-term use apixaban Chronic back pain greater than 3 months duration Chronic pain spine, has had 3 spine surgeries High blood pressure controlled with medication Hypothyroid treated with medication Irregular heart beat afib Lightheadedness 12/24/2016 assistant terminal manager current use of opiate analgesic oxycodone, prescribed [...] date: 11/09/1966 Quit date: 11/09/1982 Years since quittin.4 Smokeless tobacco: Never Vaping Use Vaping status: [...] Prior to Visit Medication Sig Dispense Refill valACYclovir (Valtrex) 500 mg tablet 500 mg. prn Ubrelvy 100 mg tablet SUMAtriptan (IMITREX) 20 mg/actuation [place], Non-Aerosol 1 spray by Nasal route as needed. multivitamin (THERAGRAN) Tablet Take 1 tablet by mouth daily. finasteride (Proscar) 5 mg tablet Take 5 mg by mouth daily. benzonatate (Tessalon) 200 mg capsule Take 200 mg by mouth 3 times daily as needed for Cough. acetaminophen (Tylenol) 500 mg tablet as needed. metoprolol succinate XL (Toprol-XL) 100 mg ER 24 hr tablet Take 1 tablet by mouth daily. 90 tablet 3 magnesium hydroxide (MILK OF MAGNESIA ORAL) Take [...] PO QD fluticasone propionate (FLONASE) 50 mcg/actuation [place], Suspension INSTILL 1SPRAY IN EACH NOSTRIL TWICE [...] 0.025 % Lotion Apply topically as needed. verapamil (CALAN-SR) 120 mg Tablet Sustained Release Take 1 tablet by mouth daily. (Patient taking differently: Take 120 mg by mouth nightly.) 90 tablet 3 levothyroxine (Synthroid) 100 mcg Tablet Take 100 mcg by mouth daily. baclofen (LIORESAL) 10 mg tablet Take 10 mg by mouth nightly as needed. simvastatin (ZOCOR) 10 mg tablet Take 10 mg by mouth nightly. BOTOX 200 unit Recon Soln Inject 200 Units as directed Q 3 Months. No current facility-administered medications on file prior to visit. BP: 186/105 BP site: BP position: BP cuff size: Pulse: 60 Temp: (96.9 ??F) Temp source: Weight: Height: HC: Resp: 18 SpO2: 100% on room air ROS: Per HPI EXAMINATION: GEN: Patient is in no acute distress, alert, awake. No significant changes are noted today from last visit with me. All toenails both feet are thickened and dystrophic. The left hallux nail plate is ingrown on the distal medial nail fold region. This is a thickened dystrophic nail plate as well. He has very incurvated nail plates on the fifth toes bilateral feet without signs of infection. These are not infected but they are ingrown and painful. The areas are hypersensitive secondary to his neuropathy. He has palpable pedal pulses bilaterally with no significant evidence of arterial insufficiency. Neurologic exam reveals hypersensitivity to light touch to multiple areas of both feet. Musculoskeletal exam is unremarkable at this time. ASSESSMENT: Neuropathic pain affecting both lower extremities, chronic Onychodystrophy multiple toenails both feet Ingrowing toenails bilateral feet PLAN: A foot exam was performed and we [...] this procedure very well which he has d one in the past with this treatment. I will be happy to take care of him on a regular basis going forward as he cannot do this safely or effectively himself at this time in his life. It has been my pleasure seeing Malik today. FOLLOW UP: isael Metzger DPM, [place] Control Board Operator, [facility] documented in this encounter Plan of Treatment Upcoming Encounters Date Type Department Care Team (Late st Contact Info) Description 08/18/2024 11:00 AM EDT Hospital Encounter Non-[place] [address] Arrived 02/22/2025 1:30 PM EDT Appointment Hematology and Oncology at [place] [phone] 02/22/2025 2:30 PM EDT Office Visit Hematology [place] [address] Ellis Childers MD [facility] [address] [place] [address] Felicita Landa APRN [facility] [place] [address] documented as of this encounter Visit Diagnoses Diagnosis Neuropathic pain of both feet Onychodystrophy Other specified disease of nail Pain in toe of left foot Pain in limb Pain in toe of right foot Pain in limb documented in this encounter Care Teams Head Up Operator Helper Relationship Specialty Start Date End Date Radha Mckeon MD [address] [place] [address] PCP - General 09/23/10 documented as of this encounter
--- OUTSIDE RECORDS SUMMARY | 2024-07-24 17:19 | XMS_ITS | Encounter Summary ---
Author Organization Formerly [facility] [address] Care Team Providers Care Lathe Machine Operator Name Role Phone Radha Mckeon MD Primary Care Provider [phone] Encounter Details Date Type Department Care Team (Latest Contact Info) Description 12/22/2023 11:00 AM EST - 12/22/2023 11:59 PM EST Hospital Encounter [place] [phone] Discharge Disposition: Home Social History Tobacco Use [...] place to sleep or slept in a chcf (including now)? No 04/01/2022 DH IPV Inpatient [...] Sig Dispensed Refills Start Date End Date valACYclovir (Valtrex) 500 mg tablet 500 mg. prn 12/24/2021 Ubrelvy 100 mg tablet 07/09/2023 SUMAtriptan (IMITREX) 20 mg/actuation [place], Non-Aerosol 1 spray by Nasal route as [...] as needed. 11/17/2019 acyclovir (ZOVIRAX) 200 mg CapsuleIndications:pr n 1 capsule as needed. Indications: prn diclofenac (VOLTAREN) 1 % Gel Apply topically Once daily as needed. tamsulosin (Flomax) 0.4 mg Capsule TK 1 C PO QD 04/23/2020 fluticasone propionate (FLONASE) 50 mcg/actuation [place], Suspension INSTILL 1SPRAY IN EACH NOSTRIL TWICE [...] tablet Take 10 mg by mouth nightly. metoprolol succinate XL (Toprol-XL) 100 mg ER 24 hr tabletIndications:Par oxysmal atrial fibrillation Take 1 tablet by mouth daily. 90 tablet 3 04/20/2023 04/27/2024 documented as of this encounter Plan of Treatment Upcoming Encounters Date Type Department Care Team (Late st Contact Info) Description 08/18/2024 11:00 AM EDT Hospital Encounter [place] [address] Arrived 02/22/2025 1:30 PM EDT Appointment Hematology [place] [phone] 02/22/2025 2:30 PM EDT Office Visit Hematology [place] [address] Ellis Childers MD [facility] DR HEMATOLOGY AND ONCOLOGY [place], [place] [phone] Felicita Landa APRN [facility] [address] [place] [address] documented as of this encounter Procedures Procedure Name Priority Date/Time Associated Diagnosis Comments PRG ILR INTERROGATION REMOTE UP TO 30 DAYS Routine 12/03/2023 2:03 AM EST documented in this encounter Results * Cardiac Device Check - Remote (12/03/2023 2:03 AM EST) Anatomical Region Laterality Modality Other 12/03/2023 2:03 AM EST Sera Arteaga MD IMPLANTABLE CARDIAC DEVICE documented in this encounter Visit Diagnoses Not on filedocumented in this encounter Care Teams Lathe Machine Operator Relationship Specialty Start Date End Date Radha Mckeon MD [address] [place] [address] PCP - General 09/23/10 documented as of this encounter
--- OUTSIDE RECORDS SUMMARY | 2024-07-24 17:19 | XMS_ITS | Encounter Summary ---
Author Organization [facility] [place] [address] Care Team Providers Care Quiller Operator Name Role Phone Radha Mckeon MD Primary Care Provider Encounter Details Date Type Department Care Team (Late st Contact Info) Description 01/13/2024 Telephone [place] [phone] Devonte Coulter PA [facility] [place] [address] Social History Tobacco Use Types Packs/Day Years [...] place to sleep or slept in a senior living (including now)? No 04/01/2022 DH IPV Inpatient [...] encounter Miscellaneous Notes * Telephone Encounter - Devonte Coulter PA - 01/13/2024 6:49 AM EDT Discussed with the patient regarding his MRI findings, and that the lesion appeared to be a partially solid, partially cystic lesion, and that it appeared to be essentially the same size, possibly smaller, when compared with imaging from 2021. 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 Discussed his return at 4 months from his prior visit, however, to directly visualize the lesion again andassess for interval change, out of an abundance of caution. Also discussed the white matter changesnoted on the imaging, and that this was a non-specific finding of uncertain significance. He did inquire if those changes may be related to his balance issues, and I mentioned that this was unlikely;but did recommend he follow up with his Neurologist for their input regarding the question. I also recommended that the patient review his balance issues first with his PCP, as there are myriad etiologies for challenges with balance, and it is best to start that workup with a broad view initially. The patient expressed understanding of these points and agreement with the plan, and all questions that were asked were answered to the patient's satisfaction. documented in this encounter Plan of Treatment Upcoming Encounters Date Type Department Care Team (Late st Contact Info) Description 08/18/2024 11:00 AM EDT Hospital Encounter Non-Invasive [place] [address] Arrived 02/22/2025 1:30 PM EDT Appointment Hematology [place] [address] 02/22/2025 2:30 PM EDT Office Visit Hematology [place] [address] Ellis Childers MD [facility] [place] [address] Felicita Landa APRN [facility] [address] [place] [address] documented as of this encounter Visit Diagnoses Not on filedocumented in this encounter Care Teams Quiller Operator Relationship Specialty Start Date End Date Radha Mckeon MD [address] [place] [address] PCP - General 09/23/10 documented as of this encounter
--- OUTSIDE RECORDS SUMMARY | 2024-07-24 17:19 | XMS_ITS | Encounter Summary ---
Author Organization Formerly [facility] [place] [address] Care Team Providers Care Carpet Installer Name Role Phone Radha Mckeon MD Primary Care Provider [phone] Encounter Details Date Type Department Care Team (Late st Contact Info) Description 12/06/2023 Telephone [place] [address] Jia Warren Social History Tobacco Use Types Packs/Day Years [...] place to sleep or slept in a long-term (including now)? No 04/01/2022 IPV Inpatient Questions [...] encounter Miscellaneous Notes * Telephone Encounter - Jia Warren - 12/06/2023 5:10 PM EST Pt is scheduled for a sedated MRI on 01/05. Pt expressed he does not have a lot of options for assistance with transportation to and from this appointment as it requires a swing driver. Would you be able to reach out to him with resources for ride options? Thank you, Ngozi documented in this encounter Plan of Treatment Upcoming Encounters Date Type Department Care Team (Late st Contact Info) Description 08/18/2024 11:00 AM EDT Hospital Encounter [place] [address] Arrived 02/22/2025 1:30 PM EDT Appointment Hematology [place] [address] 02/22/2025 2:30 PM EDT Office Visit Hematology [place] [address] Ellis Childers MD [facility] DR HEMATOLOGY [place] [address] Felicita Landa APRN [facility] DR HEMATOLOGY [place] [address] documented as of this encounter Visit Diagnoses Not on filedocumented in this encounter Care Teams Carpet Installer Relationship Specialty Start Date End Date Radha Mckeon MD [address] [place] [address] PCP - General 09/23/10 documented as of this encounter
--- OUTSIDE RECORDS SUMMARY | 2024-07-24 17:19 | XMS_ITS | Encounter Summary ---
Author Organization [facility] [place] [address] Care Team Providers Care Financial Services Manager Name Role Phone Radha Mckeon MD Primary Care Provider [phone] Reason for Referral * Occupational Therapy (Routine) - Closed Specialty Diagnoses / Procedures Referred By Becki guillory Referred To Contact Occupational Therapy Diagnoses Trigger finger, left middle finger Jovan Duong MD [facility] [place] [address] Referral ID Status Reason Start Date Expiration Date V isits Requested Visits Authorized [id number] Closed Evaluate and Treat 12/15/2023 06/12/2024 12 12 Reason for Visit * Reason Comments Post Op LEFT MIDDLE TRIGGER FINGER RELEASE DOS 11/29/23 Encounter Details Date Type Department Care Team (Late st Contact Info) Description 12/15/2023 2:30 PM EST Office [place] [address] Jovan Duong MD [facility] [place] [address] Trigger finger, left middle finger Social History Tobacco Use Types Packs/Day Years [...] place to sleep or slept in a half-way (including now)? No 04/01/2022 DH IPV Inpatient [...] on file documented as of this encounter Last Filed Vital Signs Vital Sign Reading Time Taken Comments Blood Pressure - - Pulse - - Temperature - - Respiratory Rate - - Oxygen Saturation - - Inhaled Oxygen Concentration - - Weight 71.7 kg (158 lb) 12/15/2023 2:15 PM EST Height 180.3 cm (5' 11) 12/15/2023 2:15 PM EST Body Mass Index 22.04 12/15/2023 2:15 PM EST documented in this encounter Progress Notes * Jovan Duong MD - 12/15/2023 2:30 PM EST /Orthopaedic Clinic Post-Op Note PATIENT NAME: Malik Machado DATE OF VISIT: 12/15/23 CHIEF COMPLAINT: Chief Complaint Patient presents with Post Op LEFT MIDDLE TRIGGER FINGER RELEASE DOS 11/29/23 DATE OF SURGERY: 11/29/23/ SURGERY: Left long finger trigger release HPI: Malik Machado is a 73 y.o. male patient who presents to the orthopaedic clinic approximately 2 weeks after the surgery above. He is doing overall very well since surgery. Denies any fevers chills drainage or new numbness. He feels he has mild swelling and mild stiffness with inability for full extension. Otherwise he has been using the hand including for guitar. He has been changing Band-Aids keeping the wound covered. Hehas been avoiding heavy lifting. PHYSICAL EXAM: No acute distress Affect within normal limits for age Alert and oriented Speech clear and intact, appropriate for age Head atraumatic Respirations unlabored Brisk capillary refill peripheral bilateral upper extremities, warm and well perfused Left hand examined: Incision clean dry and intact with trace gapping. Nylon sutures in place FDP and FDS intact Sensation tact light touch throughout the long finger He has approximately 10 degrees short of full extension of the PIP joint He has 80+ percent composite flexion of the long finger only limited by slight swelling Mild edema throughout the long finger and around the incision No erythema ecchymosis or drainage at the incision Nontender to palpation at the incision IMAGING: None indicated today ASSESSMENT and PLAN: Malik Machado is a 73 y.o. male patient who presents approximately 2 weeks after left long finger trigger digit release clinically doing overall very well though he does have mild to moderate stiffness, swelling and trace gapping of the incision. There is no evidence of infection tendon or nerve injuries. I recommended he wait 1 additional week for suture removal I discussed motion exercises but also rest from direct pressure activities like guitar for an additional week Recommended hand therapy. Given his distance from the office, he is already aware of arranging therapy close to home when he has begun those discussions. Plan: OT external prescription for edema control and range of motion long finger trigger digit Range of motion as tolerated No direct pressure or heavy lifting for 1 additional week then may resume weightbearing as tolerated Suture removal in approximately 1 week close to home. He will call our office if he is unable to arrange this through his PCP or hand therapist Followup: As needed, I emphasized if in 1 month's and has not returned to normal and always he should call the office to discuss a telemedicine video visit or in person visit. No x-ray prior. Call sooner with any questions or concerns. All questions were satisfactorily answered. Jovan Duong MD, MPH Pediatric Orthopaedics Hand & Upper Extremity Surgeon [facility] documented in this encounter Plan of Treatment Upcoming Encounters Date Type Department Care Team (Late st Contact Info) Description 08/18/2024 11:00 AM EDT Hospital Encounter Non-[place] [address] Arrived 02/22/2025 1:30 PM EDT Appointment Hematology and Oncology at [place] [phone] 02/22/2025 2:30 PM EDT Office Visit Hematology and Oncology at [place] [phone] Ellis Childers MD [facility] HEMATOLOGY [place] [address] Felicita Landa APRN [facility] [place]ATOLOGY [place] [address] Scheduled Referrals Name Type Priority Associated Diagnoses Order Schedule Referral to Occupational Therapy Outpatient Referral Routine Trigger finger, left middle finger Ordered: 12/15/2023 documented as of this encounter Visit Diagnoses Diagnosis Trigger finger, left middle finger documented in this encounter Care Teams Financial Services Manager Relationship Specialty Start Date End Date Radha Mckeon MD [address] [place] [address] PCP - General 09/23/10 documented as of this encounter
--- OUTSIDE RECORDS SUMMARY | 2024-07-24 17:19 | XMS_ITS | Encounter Summary ---
Author Organization [facility] [address] Care Team Providers Care Retort Cooler Name Role Phone Radha Mckeon MD Primary Care Provider [phone] Reason for Visit * Diagnostic Test (Routine) - Closed Specialty Diagnoses / Procedures Referred By Becki guillory Referred To Contact Radiology Diagnoses H/O epistaxis Epistaxis Mass of nasopharynx Dizziness Procedures MRI Brain wwo Contrast (Generic) Devonte Coulter PA [facility] [place] [address] [place] [address] Referral ID Status Reason Start Date Expiration Date V isits Requested Visits Authorized [id number] Closed Specialty Service Requested 11/25/2023 05/15/2025 1 1 Encounter Details Date Type Department Care Team (Latest Contact Info) Description 01/06/2024 12:29 PM EST - 01/06/2024 11:59 PM EST Hospital [place] [address] Armando Weiss MD [facility] [place] [address] Discharge Disposition: Home Social History Tobacco Use [...] place to sleep or slept in a jail (including now)? No 04/01/2022 DH IPV Inpatient [...] mg tablet 07/09/2023 SUMAtriptan (IMITREX) 20 mg/actuation [place], Non-Aerosol 1 spray by Nasal route as [...] QD 04/23/2020 fluticasone propionate (FLONASE) 50 mcg/actuation [place], Suspension INSTILL 1SPRAY IN EACH NOSTRIL TWICE [...] AM EDT Hospital Encounter Non-[place] [address] Arrived 02/22/2025 1:30 PM EDT Appointment Hematology [place] [address] 02/22/2025 2:30 PM EDT Office Visit Hematology and Oncology at [place] [address] Ellis Childers MD [facility] [address] [place] [address] Felicita Landa APRN [facility] DR HEMATOLOGY [place] [address] documented as of this encounter Procedures Procedure Name Priority Date/Time Associated Diagnosis Comments MRI BRAIN WWO CONTRAST (GENERIC) Routine 01/06/2024 3:19 PM EST H/O epistaxis Epistaxis Mass of nasopharynx Dizziness documented in this encounter Visit Diagnoses Not on filedocumented in this encounter Administered Medications Inactive Administered Medications - up to 3 most recent administrations Medication Order MAR Action Action Date Dose Rate Site gadoterate meglumine (Dotarem) (0.5 mMol/mL) injection solution 0-100 mL 0-100 mL, Intravenous, ONCE PRN, 1 dose, Starting on Zakia 01/06/24 at 1456, Until Zakia 01/06/24 at 1456, Per Protocol, Radiology Contrast, Routine Given 01/06/2024 2:56 PM EST 14 mLs documented in this encounter Care Teams Retort Cooler Relationship Specialty Start Date End Date Radha Mckeon MD [address] [place] [address] PCP - General 09/23/10 documented as of this encounter
--- OUTSIDE RECORDS SUMMARY | 2024-07-24 17:19 | XMS_ITS | Encounter Summary ---
Author Organization Formerly [facility] [place] [address] Care Team Providers Care Physician Practice Coordinator Name Role Phone Radha Mckeon MD Primary Care Provider [phone] Encounter Details Date Type Department Care Team (Latest Contact Info) Description 02/24/2024 1:30 PM EDT - 02/24/2024 11:59 PM EDT Hospital Encounter Hematology [place] [address] Thrombocytopenia Discharge Disposition: Home Social History Tobacco Use [...] mg tablet 07/09/2023 SUMAtriptan (IMITREX) 20 mg/actuation [place], Non-Aerosol 1 spray by Nasal route as [...] QD 04/23/2020 fluticasone propionate (FLONASE) 50 mcg/actuation [place], Suspension INSTILL 1SPRAY IN EACH NOSTRIL TWICE [...] AM EDT Hospital Encounter Non[place] [address] Arrived 02/22/2025 1:30 PM EDT Appointment Hematology [place] [address] 02/22/2025 2:30 PM EDT Office Visit Hematology [place] [address] Ellis Childers MD [facility] DR [place] [address] Felicita Landa APRN [facility] DR HEMATOLOGY AND ONCOLOGY [place] [phone] documented as of this encounter Procedures Procedure Name Priority Date/Time Associated Diagnosis Comments HEMOGRAM Routine 02/24/2024 1:39 PM EDT Thrombocytopenia DIFFERENTIAL, AUTOMATED Routine 02/24/2024 1:39 PM EDT Thrombocytopenia CBC (WITH DIFF) Routine 02/24/2024 1:39 PM EDT Thrombocytopenia documented in this encounter Results * Differential, Automated (02/24/2024 1:39 PM EDT) Neutrophil % 68.7 % [facility] Neutrophil Absolute 4.12 1.70 - 6.10 x10(3)/[facility] Lymph % 15.4 % [facility] Lymphocytes Abs 0.9 0.9 - 3.2 x10(3)/[facility] Monocyte % 12.5 % [facility] Monocyte Abs 0.8 0.3 - 0.9 x10(3)/[facility] Eos % 2.2 % [facility] Eosinophils Abs 0.1 0.0 - 0.4 x10(3)/[facility] Basophil % 1.0 % [facility] Baso Absolute 0.1 0.0 - 0.1 x10(3)/[facility] Immature Gran % 0.20 % [facility] Comment: Immature granulocytes(IG's)percentage and absolute count will include metamyelocytes, myelocytes, and promyelocytes. Blood smears from CBCs yielding IG's will be scanned manually for concordance. If this scan disagrees with the automated IG or if promyelocytes are noted, a manual differential will be performed. Immature Gran Absolute 0.01 0.00 - 0.04 x10(3)/[facility] Blood 02/24/2024 1:39 PM EDT 02/24/2024 1:53 PM EDT Narrative Resulting Agency Comment Spec In Lab Felicita Cooper MECHANICAL EXPERT HEMATOLOGY ORD ERABLES Performing Organization Address City/State/[facility] Co de Phone Number [facility] [place] [address] * (ABNORMAL) Hemogram (02/24/2024 1:39 PM EDT) White Blood Cell 6.0 4.0 - 9.5 x10(3)/[facility] LABORATORY Red Blood Cell 4.84 4.58 - 5.54 x10(6)/ L [facility] Hemoglobin 15.3 13.7 - 16.5 g/dL [facility] Hematocrit 45.3 40.5 - 48.5 % [facility] Mean Cell Volume 93.6(H) 82.9 - 93.[address] [facility] Mean Cell Hemoglobin 31.6 27.5 - 32.[address] [facility] Mean Cell Hemoglobin Concentration 33.8 32.0 - 35.7 g/dL [facility] Platelet 99(L) 145 - 357 x10(3)/ L [facility] RDW Standard Deviation 42.9 36.0 - 45.[address] [facility] RDW coefficient of variation 12.5 11.4 - 13.8 % [facility] Mean Platelet Volume 11.7 7.6 - 12.[address] [facility] NRBC% auto 0.0 % [facility] NRBC Absolute 0.000 0.000 - 0.000 x10(3)/mc L [facility] Blood 02/24/2024 1:39 PM EDT 02/24/2024 1:53 PM EDT Narrative Resulting Agency Comment Spec In Lab Felicita Cooper MECHANICAL EXPERT HEMATOLOGY ORD ERABLES [facility] [place] [address] documented in this encounter Visit Diagnoses Diagnosis Thrombocytopenia Thrombocytopenia, unspecified documented in this encounter Care Teams Physician Practice Coordinator Relationship Specialty Start Date End Date Radha Mckeon MD [address] [place] [address] PCP - General 09/23/10 documented as of this encounter
--- OUTSIDE RECORDS SUMMARY | 2024-07-24 17:19 | XMS_ITS | Encounter Summary ---
Author Organization Formerly [facility] [address] Care Team Providers Care Health Companion Name Role Phone Radha Mckeon MD Primary Care Provider [phone] Encounter Details Date Type Department Care Team (Late st Contact Info) Description 03/06/2024 4:30 PM EDT [place] [address] Joaquin Metzger, [facility] [place] [address] Neuropathic pain of both feet; Onychodystrophy; Pain [...] place to sleep or slept in a fci (including now)? No 04/01/2022 DH IPV Inpatient [...] Progress Notes * Joaquin Metzger DPM - 03/06/2024 4:30 PM EDT Outpatient Podiatry Clinic Note Name: Malik Machado Age:73 y.o. MR#: [id number] Date of Service: 03/06/2024 SUBJECTIVE: Malik Machado is a very pleasant 73 y.o. male who presents to the clinic today for treatment of recurring pain in multiple toes both feet secondary to chronically dystrophic ingrown toenails. I have seen him many times in the past at a prior office location and have been taking care ofhim with this problem previously. I also performed matrixectomy type procedures for him in the pastwith complete removal of the right hallux nail plate which has done very well. 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 He needs preventative care to prevent significant injury to his skin. 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 Allergies Allergen Reactions Zolpidem [...] Flecainide Other (See Comments) Adverse effect caused MT and QRS prolongation Other reaction(s): Other (See Comments) Adverse effect caused MT and QRS prolongation Other reaction(s): Other (See Comment) Past Medical History: Diagnosis Date Antiplatelet or antithrombotic long-term use apixaban Chronic back pain greater than 3 months duration Chronic pain spine, has had 3 spine surgeries High blood pressure controlled with medication Hypothyroid treated with medication Irregular heart beat afib Lightheadedness 12/24/2016 penitentiary current use of opiate analgesic oxycodone, prescribed [...] on file Tobacco Use Smoking status: Former Packs/day: 2.00 Years: 16.00 Additional pack years: 0.00 Total pack years: 32.00 Types: Cigarettes Quit date: 11/09/1982 Years since quittin.3 Smokeless tobacco: Never Vaping Use Vaping Use: Never used Substance and Sexual Activity Alcohol use: No [...] 100 mg tablet SUMAtriptan (IMITREX) 20 mg/actuation [place], Non-Aerosol 1 spray by Nasal route as [...] PO QD fluticasone propionate (FLONASE) 50 mcg/actuation [place], Suspension INSTILL 1SPRAY IN EACH NOSTRIL TWICE [...] both feet Ingrowing toenails bilateral feet PLAN: We discussed different treatment options today. I have known Malik for a long time and have done toenail procedures on him in the past. I was able to again very carefully examine his feet and then debride and trim out his nails, left hallux and 5th toenails both feet, very carefully to avoid stimulating hypersensitive nerves. This was done using sterile nail nipper and rotary bur. He tolerated this procedure very well which he has done in the past with careful treatment. I will be happy to take care of him on a regular basis going forward as he cannot do this safely or effectively himself at this time in his life. It has been my pleasure seeing Malik today. FOLLOW UP: isael Metzger DPM, MS Spa Concierge, [facility] documented in this encounter Plan of Treatment Upcoming Encounters Date Type Department Care Team (Late st Contact Info) Description 08/18/2024 11:00 AM EDT Hospital Encounter Non-Invasive [place] [address] Arrived 02/22/2025 1:30 PM EDT Appointment Hematology and Oncology at [place] [address] 02/22/2025 2:30 PM EDT Office Visit Hematology and Oncology at [place] [address] Ellis Childers MD [facility] [address] HEMATOLOGY [place] [address] Felicita Landa APRN [facility] [address] HEMATOLOGY [place] [address] documented as of this encounter Visit Diagnoses Diagnosis Neuropathic pain of both feet Onychodystrophy Other specified disease of nail Pain in toe of left foot Pain in limb Pain in toe of right foot Pain in limb documented in this encounter Care Teams Health Companion Relationship Specialty Start Date End Date Radha Mckeon MD [address] [place] [address] PCP - General 09/23/10 documented as of this encounter
--- OUTSIDE RECORDS SUMMARY | 2024-07-24 17:19 | XMS_ITS | Encounter Summary ---
Author Organization [facility] [place] [address] Care Team Providers Care Bilingual Manager Name Role Phone Radha Mckeon MD Primary Care Provider [phone] Reason for Visit * Reason Onset Date Comments Bumped Appointment 12/14/2023 Encounter Details Date Type Department Care Team (Late st Contact Info) Description 12/14/2023 [place] [phone] Jovan Duong MD [facility] [place] [address] Bumped Appointment Social History Tobacco Use Types Packs/Day Years [...] encounter Miscellaneous Notes * Telephone Encounter - Danielle Harrington - 12/15/2023 9:13 AM EST RESCHEDULED * Telephone Encounter - Nallely Armando - 12/14/2023 4:09 PM EST LM#1 to reschedule bumped appointment with Dr Duong scheduled on 12/15/23. Please reschedule to same day with Dr Duong move up to 2:00, 2:15, or 2:30. documented in this encounter Plan of Treatment Upcoming Encounters Date Type Department Care Team (Late st Contact Info) Description 08/18/2024 11:00 AM EDT Hospital Encounter [place] [address] Arrived 02/22/2025 1:30 PM EDT Appointment Hematology and Oncology at [place] [phone] 02/22/2025 2:30 PM EDT Office Visit [place]ematology [place] [address] Ellis Childers MD [facility] [address] [place] [address] Felicita Landa APRN [facility] [address] [place] [address] documented as of this encounter Visit Diagnoses Not on filedocumented in this encounter Care Teams Bilingual Manager Relationship Specialty Start Date End Date Radha Mckeon MD [address] [place] [address] PCP - General 09/23/10 documented as of this encounter
--- OUTSIDE RECORDS SUMMARY | 2024-07-24 17:19 | XMS_ITS | Encounter Summary ---
Author Organization [facility] [place] [address] Care Team Providers Care Owner Spa Director Name Role Phone Radha Mckeon MD Primary Care Provider [phone] Encounter Details Date Type Department Care Team (Late st Contact Info) Description 04/13/2024 Telephone [place] [address] Jia Warren Social History Tobacco [...] place to sleep or slept in a long term (including now)? No 04/01/2022 IPV Inpatient Questions [...] * Telephone Encounter - Jia Warren - 04/13/2024 10:47 AM EDT Letter sent to pt regarding scheduling per Vance Coulter's request. documented in this encounter Plan of Treatment Upcoming Encounters Date Type Department Care Team (Late st Contact Info) Description 08/18/2024 11:00 AM EDT Hospital Encounter Non-[place] [address] Arrived 02/22/2025 1:30 PM EDT Appointment Hematology [place] [address] 02/22/2025 2:30 PM EDT Office Visit Hematology [place] [address] Ellis Childers MD [facility] [address] [place] [address] Felicita Landa APRN [facility] [address] [place] [address] documented as of this encounter Visit Diagnoses Not on filedocumented in this encounter Care Teams Owner Spa Director Relationship Specialty Start Date End Date Radha Mckeon MD [address] [place] [address] PCP - General 09/23/10 documented as of this encounter
--- OUTSIDE RECORDS SUMMARY | 2024-07-24 17:19 | XMS_ITS | Encounter Summary ---
Author Organization [facility] [place] [address] Care Team Providers Care Internal Recruiter Name Role Phone Radha Mckeon MD Primary Care Provider [phone] Encounter Details Date Type Department Care Team (Latest Contact Info) Description 03/21/2024 11:00 AM EDT - 03/21/2024 11:59 PM EDT Hospital Encounter Non-[place] [phone] Discharge Disposition: Home Social History Tobacco Use [...] place to sleep or slept in a custodial (including now)? No 04/01/2022 DH IPV Inpatient [...] mg tablet 07/09/2023 SUMAtriptan (IMITREX) 20 mg/actuation [place], Non-Aerosol 1 spray by Nasal route as [...] QD 04/23/2020 fluticasone propionate (FLONASE) 50 mcg/actuation [place], Suspension INSTILL 1SPRAY IN EACH NOSTRIL TWICE [...] AM EDT Hospital Encounter Non-[place] [address] Arrived 02/22/2025 1:30 PM EDT Appointment Hematology [place] [phone] 02/22/2025 2:30 PM EDT Office Visit Hematology [place] [address] Ellis Childers MD [facility] DR HEMATOLOGY AND ONCOLOGY [place], [place] [address] Felicita Landa APRN [facility] [address] [place] [address] documented as of this encounter Procedures Procedure Name Priority Date/Time Associated Diagnosis Comments PRG ILR INTERROGATION REMOTE UP TO 30 DAYS Routine 03/02/2024 2:05 AM EDT documented in this encounter Results * Cardiac Device Check - Remote (03/02/2024 2:05 AM EDT) Anatomical Region Laterality Modality Other 03/02/2024 2:05 AM EDT Sera Arteaga MD IMPLANTABLE CARDIAC DEVICE documented in this encounter Visit Diagnoses Not on filedocumented in this encounter Care Teams Internal Recruiter Relationship Specialty Start Date End Date Radha Mckeon MD [address] [place] [address] PCP - General 09/23/10 documented as of this encounter
--- OUTSIDE RECORDS SUMMARY | 2024-07-24 17:19 | XMS_ITS | Encounter Summary ---
Author Organization [facility] [place] [address] Care Team Providers Care Ladle Filler Name Role Phone Radha Mckeon MD Primary Care Provider [phone] Encounter Details Date Type Department Care Team (Latest Contact Info) Description 01/06/2024 Travel Social History Tobacco Use Types Packs/Day [...] place to sleep or slept in a correction (including now)? No 04/01/2022 IPV Inpatient Questions [...] Hospital Encounter Non-[place] [address] Arrived 02/22/2025 1:30 PM EDT Appointment Hematology [place] [address] 02/22/2025 2:30 PM EDT Office Visit Hematology and Oncology at [place] [address] Ellis Childers MD [facility] [place] [address] Felicita Landa APRN [facility] [place] [address] documented as of this encounter Visit Diagnoses Not on filedocumented in this encounter Care Teams Ladle Filler Relationship Specialty Start Date End Date Radha Mckeon MD [address] [place] [address] PCP - General 09/23/10 documented as of this encounter
--- OUTSIDE RECORDS SUMMARY | 2024-07-24 17:19 | XMS_ITS | Encounter Summary ---
Author Organization [place] [address] Care Team Providers Care Research And Development Specialist Name Role Phone Radha Mckeon MD Primary Care Provider [phone] Encounter Details Date Type Department Care Team (Latest Contact Info) Description 12/15/2023 Travel Social History Tobacco Use Types Packs/Day [...] in a detention (including now)? No 04/01/2022 IPV Inpatient Questions [...] AM EDT Hospital Encounter Non-[place] [address] Arrived 02/22/2025 1:30 PM EDT Appointment Hematology [place] [address] 02/22/2025 2:30 PM EDT Office Visit Hematology and Oncology at [place] [address] Ellis Childers MD [facility] DR [place]EMAT[place]Y [place] [address] Felicita Landa APRN [facility] DR HEMATOLOGY [place] [address] documented as of this encounter Visit Diagnoses Not on filedocumented in this encounter Care Teams Research And Development Specialist Relationship Specialty Start Date End Date Radha Mckeon MD [address] [place] [address] PCP - General 09/23/10 documented as of this encounter
--- OUTSIDE RECORDS SUMMARY | 2024-07-24 17:19 | XMS_ITS | Encounter Summary ---
Author Organization [facility] Address [facility] [place] [address] Care Team Providers Care Political Science Research Assistant Name Role Phone Radha Mckeon MD Primary Care Provider Encounter Details Date Type Department Care Team (Latest Contact Info) Description 12/06/2023 4:00 PM EST - 12/06/2023 11:59 PM [facility] Hospital Encounter XRay at [address] [place] [address] Armando Weiss MD [facility] [place] [address] Mass of nasopharynx; Dizziness Discharge Disposition: Home Social History Tobacco Use [...] place to sleep or slept in a group home (including now)? No 04/01/2022 DH IPV [...] mg tablet 07/09/2023 SUMAtriptan (IMITREX) 20 mg/actuation [place], Non-Aerosol 1 spray by Nasal route as [...] QD 04/23/2020 fluticasone propionate (FLONASE) 50 mcg/actuation [place], Suspension INSTILL 1SPRAY IN EACH NOSTRIL TWICE [...] AM EDT Hospital Encounter Non-Invasive [place] [phone] Arrived 02/22/2025 1:30 PM EDT Appointment Hematology [place] [address] 02/22/2025 2:30 PM EDT Office Visit Hematology [place] [address] Ellis Childers MD [facility] DR [place] [address] Felicita Landa APRN [facility] [place] [address] documented as of this encounter Procedures Procedure Name Priority Date/Time Associated Diagnosis Comments XR CHEST ONE VIEW Routine 12/06/2023 4:1 1 PM EST Mass of nasopharynx Dizziness documented in this encounter Results * XR Chest One View (12/06/2023 4:11 PM EST) Anatomical Region Laterality Modality Chest N/A Digital Radiogra phy Impressions 12/06/2023 7:05 PM EST Loop recorder remains. MR compatibility unknown. Thank you for letting us participate in the care of this patient. ??If you are a health care provider and have any questions regarding this report, please contact the number below. ??For patients who have questions please contact the health direct care counselor that requested your imaging first. ? Electronically signed by: Vandana Elizabeth MD, [facility] ([phone]), at 12/06/2023 7:05 PM Narrative 12/06/2023 7:05 PM EST EXAMINATION: XR CHEST ONE VIEW CLINICAL HISTORY: For MRI safety J39.2, Other diseases of pharynx - R42, Dizziness and giddiness TECHNIQUE: 1 view of the chest COMPARISON: January 15, 2022 FINDINGS: No consolidation. No mass. Cardiac, mediastinal and hilar contours within normal limits. No pleural effusion. No pneumothorax. Loop recorder remains. MR compatibility unknown. Procedure Note Vandana Elizabeth MD - 12/06/2023 EXAMINATION: XR CHEST ONE VIEW CLINICAL HISTORY: For MRI safety J39.2, Other diseases of pharynx - R42, Dizziness and giddiness TECHNIQUE: 1 view of the chest COMPARISON: January 15, 2022 FINDINGS: No consolidation. No mass. Cardiac, mediastinal and hilar contours withinnormal limits. No pleural effusion. No pneumothorax. Loop recorder remains. MR compatibility unknown. IMPRESSION Loop recorder remains. MR compatibility unknown. Thank you for letting us participate in the care of this patient. If youare a health care provider and have any questions regarding this report,please contact the number below. For patients who have questions please contactthe health direct care counselor that requested your imaging first. Electronically signed by: Vandana Elizabeth MD, [facility]([phone]), at 12/06/2023 7:05 PM Armando Weiss MD IMG DX ORDERABLES documented in this encounter Visit Diagnoses Diagnosis Mass of nasopharynx Unspecified disease of pharynx Dizziness Dizziness and giddiness documented in this encounter Care Teams Political Science Research Assistant Relationship Specialty Start Date End Date Radha Mckeon MD [address] [place] [address] PCP - General 09/23/10 documented as of this encounter
--- OUTSIDE RECORDS SUMMARY | 2024-07-24 17:19 | XMS_ITS | Encounter Summary ---
Author Organization [facility] [place] [place] [address] Care Team Providers Care Automatic Toe Laster Name Role Phone Radha Mckeon MD Primary Care Provider [phone] Encounter Details Date Type Department Care Team (Late st Contact Info) Description 12/06/2023 2:45 PM EST Office [place] [address] Joaquin Metzger, [facility] [place] [address] Neuropathic pain of both feet; Onychodystrophy; Pain [...] place to sleep or slept in a intermediate (including now)? No 04/01/2022 DH IPV Inpatient [...] Progress Notes * Joaquin Metzger DPM - 12/06/2023 2:45 PM EST Outpatient Podiatry Clinic Note Name: Malik Machado Age:73 y.o. 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 Allergies Allergen Reactions Zolpidem Other [...] Flecainide Other (See Comments) Adverse effect caused [place] and QRS prolongation Other reaction(s): Other (See Comments) Adverse effect caused MN and QRS prolongation Other reaction(s): Other (See Comment) Past Medical History: Diagnosis Date Antiplatelet or antithrombotic long-term use apixaban Chronic back pain greater than 3 months duration Chronic pain spine, has had 3 spine surgeries High blood pressure controlled with medication Hypothyroid treated with medication Irregular heart beat afib Lightheadedness 12/24/2016 detention current use of opiate analgesic oxycodone, prescribed [...] Types: Cigarettes Quit date: 11/09/1982 Years since quittin.1 Smokeless tobacco: Never Vaping Use Vaping Use: [...] Not on file Intimate Partner Violence: Not on file Housing Stability: Unknown (04/01/2022) Housing Stability Vital [...] Prior to Visit Medication Sig Dispense Refill Ubrelvy 100 mg tablet SUMAtriptan (IMITREX) 20 mg/actuation [place], Non-Aerosol 1 spray by Nasal route as [...] PO QD fluticasone propionate (FLONASE) 50 mcg/actuation [place], Suspension INSTILL 1SPRAY IN EACH NOSTRIL TWICE [...] He has very incurvated nail plates on third and fourthtoenails on the right foot and third, fourth, fifth toenails on the left foot. These are not infected but they are ingrown and painful. The areas are hypersensitive secondary to his neuropathy. He has palpable pedal pulses bilaterally with no significant evidence of arterial insufficiency. Neurologic exam reveals hypersensitivity to light touch to multiple areas of both feet. Musculoskeletal examis unremarkable at this time. ASSESSMENT: Neuropathic pain [...] out his nails, left hallux and 5th right toenails, very carefully to avoid stimulatinghypersensitive nerves. He tolerated this procedure very well which he has done in the past with careful treatment. I will be happy to take care of him on a regular basis going forward as he cannot dothis safely or effectively himself at this time in his life. He did complain about his ongoing headache issue and he is hypertensive currently. He was planning on going to the emergency department for evaluation after his visit with me today. He demonstrated no acute distress for obvious neurologic deficit during our visit today. It has been my pleasure seeing Malik. FOLLOW UP: isael Metzger DPM, MS Circuit Designer, [facility] documented in this encounter Plan of Treatment Upcoming Encounters Date Type Department Care Team (Late st Contact Info) Description 08/18/2024 11:00 AM EDT Hospital Encounter Non-Invasive Cardiology Lab [address] Arrived 02/22/2025 1:30 PM EDT Appointment Hematology and Oncology at [place] [phone] 02/22/2025 2:30 PM EDT Office Visit Hematology and Oncology at [place] [address] Ellis Childers MD [facility] [place] [address] Felicita Landa APRN [facility] [place] [address] documented as of this encounter Visit Diagnoses Diagnosis Neuropathic pain of both feet Onychodystrophy Other specified disease of nail Pain in toe of left foot Pain in limb Pain in toe of right foot Pain in limb documented in this encounter Care Teams Automatic Toe Laster Relationship Specialty Start Date End Date Radha Mckeon MD [address] [place] [address] PCP - General 09/23/10 documented as of this encounter
--- OUTSIDE RECORDS SUMMARY | 2024-07-24 17:19 | XMS_ITS | Encounter Summary ---
Author Organization [facility] [place] [address] Care Team Providers Care Tearoom Hostess Name Role Phone Radha Mckeon MD Primary Care Provider [phone] Encounter Details Date Type Department Care Team (Latest Contact Info) Description 05/20/2024 11:00 AM EDT - 05/20/2024 11:59 PM EDT Hospital Encounter [place] [address] Discharge Disposition: Home Social History Tobacco Use [...] place to sleep or slept in a retirement (including now)? No 04/01/2022 DH IPV Inpatient [...] mg tablet 07/09/2023 SUMAtriptan (IMITREX) 20 mg/actuation [place], Non-Aerosol 1 spray by Nasal route as [...] QD 04/23/2020 fluticasone propionate (FLONASE) 50 mcg/actuation [place], Suspension INSTILL 1SPRAY IN EACH NOSTRIL TWICE [...] AM EDT Hospital Encounter [place] [address] Arrived 02/22/2025 1:30 PM EDT Appointment Hematology [place] [address] 02/22/2025 2:30 PM EDT Office Visit Hematology [place] [address] Ellis Childers MD [facility] [address] [place] [address] Felicita Landa APRN [facility] [address] [place] [address] documented as of this encounter Procedures Procedure Name Priority Date/Time Associated Diagnosis Comments PRG ILR INTERROGATION REMOTE UP TO 30 DAYS Routine 05/01/2024 2:02 AM EDT documented in this encounter Results * Cardiac Device Check - Remote (05/01/2024 2:02 AM EDT) Anatomical Region Laterality Modality Other 05/01/2024 2:02 AM EDT Garrett Benson MD IMPLANTABLE CARDIAC DEVICE documented in this encounter Visit Diagnoses Not on filedocumented in this encounter Care Teams Tearoom Hostess Relationship Specialty Start Date End Date Radha Mckeon MD [address] [place] [address] PCP - General 09/23/10 documented as of this encounter
--- OUTSIDE RECORDS SUMMARY | 2024-07-24 17:19 | XMS_ITS | Encounter Summary ---
Author Organization [facility] [place] [address] Care Team Providers Care Senior Administrative Support Name Role Phone Radha Mckeon MD Primary Care Provider [phone] Encounter Details Date Type Department Care Team (Late st Contact Info) Description 01/13/2024 [place] [phone] Jia Warren Social History Tobacco [...] place to sleep or slept in a nursing home (including now)? No 04/01/2022 IPV Inpatient Questions [...] * Telephone Encounter - Jia Warren - 01/13/2024 7:15 AM EDT Per msg from [facility] he spoke with the pt yesterday and told him not to come for today's appt. I called the pt on both phone numbers and sent him a [facility] msg advising not to come to this appointment. Annette appt to be rescheduled 2 mths from now. Appt has been tentatively scheduled as follows: Future Appointments Date Time Provider Department Center 03/13/2024 1:45 PM Devonte Coulter PA [facility]SE [facility] documented in this encounter Plan of Treatment Upcoming Encounters Date Type Department Care Team (Late st Contact Info) Description 08/18/2024 11:00 AM EDT Hospital Encounter [place] [address] Arrived 02/22/2025 1:30 PM EDT Appointment [place] [address] 02/22/2025 2:30 PM EDT Office Visit [place] [phone] [facility] [address] [place] [address] [facility] [address] [place] [address] documented as of this encounter Visit Diagnoses Not on filedocumented in this encounter Care Teams Senior Administrative Support Relationship Specialty Start Date End Date Radha Mckeon MD [address] [place] [address] PCP - General 09/23/10 documented as of this encounter
--- OUTSIDE RECORDS SUMMARY | 2024-07-24 17:19 | XMS_ITS | Encounter Summary ---
Author Organization [facility] [address] Care Team Providers Care Hoop Flaring Machine Operator Name Role Phone Radha Mckeon MD Primary Care Provider [phone] Reason for Referral * Diagnostic Test (Routine) - Closed Specialty Diagnoses / Procedures Referred By Becki guillory Referred To Contact Radiology Diagnoses H/O epistaxis Epistaxis Mass of nasopharynx Dizziness Procedures MRI Brain wwo Contrast (Generic) Devonte Coulter PA [facility] [place] [address] [place] [address] Referral ID Status Reason Start Date Expiration Date V isits Requested Visits Authorized [id number] Closed Specialty Service Requested 11/25/2023 05/15/2025 1 1 Reason for Visit * Diagnostic Test (Routine) - Closed Specialty Diagnoses / Procedures Referred By Becki guillory Referred To Contact Radiology Diagnoses H/O epistaxis Epistaxis Mass of nasopharynx Dizziness Procedures MRI Brain wwo Contrast (Generic) Devonte Coulter PA [facility] [place] [address] [facility] [place] [address] Referral ID Status Reason Start Date Expiration Date V isits Requested Visits Authorized [id number] Closed Specialty Service Requested 11/25/2023 05/15/2025 1 1 Encounter Details Date Type Department Care Team (Latest Contact Info) Description 01/06/2024 12:29 PM EST - 01/06/2024 11:59 PM EST Hospital Encounter MRI at [facility] [place] [address] Armando Weiss MD [facility] [place] [address] H/O epistaxis; Epistaxis; Mass of nasopharynx; Dizziness Discharge Disposition: Home [...] in a halfway (including now)? No 04/01/2022 DH IPV Inpatient [...] Sign Reading Time Taken Comments Blood Pressure 184/94 01/06/2024 3:35 PM EST Pulse - - Temperature 36.4 ??C (97.5 ??F) 01/06/2024 1:17 PM ES T Respiratory Rate 18 01/06/2024 3:35 PM EST Oxygen Saturation 100% 01/06/2024 3:35 PM EST Inhaled Oxygen Concentration - - Weight - - Height - - Body Mass Index - - documented in this encounter Discharge Instructions * Discharge Instructions* Eder Farfan RN - 01/06/2024 7:35 AM EST [facility] Department of Radiology MRI Nursing Ovidio Minor 1950 [id number] January 06, 2024 You have received IV medication for your MRI to help with claustrophobia and anxiety. This medication affects your judgement and reaction time. 2. Do not drive, operate machinery, drink alcoholic beverages, or make important decisions for 24 hours. 3. Be careful on stairs, as you may be unsteady on your feet. 4. You may eat a regular diet as tolerated. 5. Do not smoke if you are alone. 6. IV site- slight redness or tenderness is normal, you can use warm compresses. If tenderness and redness increases or foul drainage occours, please contact your M.D. Call with any questions or concerns: During regular office hours call: [phone]. If it is afterregular office hours, weekends or holidays, please call [phone] and ask to speak to the Client Services Specialist pipeline construction inspector for Interventional Radiology. Revised 12/13/19 documented in this encounter Medications at Time of Discharge Medication Sig Dispensed Refills Start Date End Date valACYclovir (Valtrex) 500 mg tablet 500 mg. prn 12/24/2021 Ubrelvy 100 mg tablet 07/09/2023 SUMAtriptan (IMITREX) 20 mg/actuation [place], Non-Aerosol 1 spray by Nasal route as [...] QD 04/23/2020 fluticasone propionate (FLONASE) 50 mcg/actuation [place], Suspension INSTILL 1SPRAY IN EACH NOSTRIL TWICE [...] 04/20/2023 04/27/2024 documented as of this encounter Progress Notes * Eder Farfan RN - 01/06/2024 3:05 PM EST MRI IV SEDATION NURSING DATABASE Name: OVIDIO MINOR Date of : 1950 AGE: 73 y.o. Address: [address] [place] [address] [address] [facility] [address] (home) Mobile: Telephone Information: Referring Provider: Devonte Coulter Allergies Allergen Reactions Zolpidem Other reaction(s): bad [...] Flecainide Other (See Comments) Adverse effect caused UT and QRS prolongation Other reaction(s): Other (See Comments) Adverse effect caused UT and QRS prolongation Other reaction(s): Other (See Comment) Is H & P in chart within the last 30 days? Yes, in media tab (scanned 01/05/24-- w/note from PCP)- KV approved SCAN REQUESTED: ON SCANNER #: HEIGHT: WEIGHT: 1. Have you ever had an MRI? If yes, tell me about the experience. If no, your name is on our list as needing sedation. Can you tell me why? (follow decision tree) 2. Did you have medication for the prior MRI? Yes IV Sedation Do you remember what you took? Have you ever taken Ativan or Valium? 3. Are you claustrophobic? Yes 4. Can you ride in an elevator? 5. Do you snore, use CPAP, or on home O2 or have any breathing problems? NO 6. Do you have pain or anxiety? Yes- pain Do you take pain meds on a regular basis? 7. Can you lay flat? Anesthesia is needed for Pt's with ALS, involuntary tremors, uses CPAP/Sleep apnea, failed IV sedation, Cognitive impairment. (KV ) You must have a front load trash truck driver present when you check in. This patient has been informed that they require a front load trash truck driver to drive them home after this procedure and that the front load trash truck driver must stay inthe Building during the MRI. In the absence of a front load trash truck driver, IR will not be able to sedate for your scan. Pt verbalized understanding of these instructions during the pre-procedure education via phone. Yes- friend BJ DATE PRIOR SCANS: MED'S GIVEN PASS/FAIL OSH MRI's Can't remember but had something for sedation 01/31/19 Lumbar Spine MRI IV Sedate Fentanyl 75 mcg IV Versed 1.5 mg IV Pass 01/06/24 Fentanyl 100mcg/IV, Versed 2mg/IV Pass. RASS -2 achieved. Wakes up during contrast administration. 1220 to procedure room MR1 via stretcher. Onto table supine. All monitors, O2, safety strap in place. Meds per protocol. 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 Right knee pain M25.561 Debility R53.81 Thrombopenia D69.6 Essential hypertension I10 Paroxysmal atrial fibrillation I48.0 S/P right total knee arthroplasty revision - poly swab and patellar revision Moschetti 11/15/2019 Z96.651 History of loop recorder - Medtronic LINQII Z98.890 Postoperative anemia due to acute blood loss D62 Neck pain M54.2 Numbness and tingling in left arm R20.0, R20.2 Radiculopathy of cervical region M54.12 s/p right long finger A1 kayla release for trigger finger 05/15/21 (Dr Duong) Z98.890 Trigger middle finger of right hand M65.331 Radiculopathy of cervical region M54.12 Thrombocytopenia D69.6 S/p C4-6 ACDF 05/19/22 (Forrest) M54.10 ILR at EOL - no telemetry Z45.09 Pertinent PSH: Past Surgical History: Procedure Laterality Date CREATED BY INTERFACE Entered not Verified Procedure Date: 11/11/2010 CREATED BY INTERFACE FACET DENERATION RADIOFREQUENCY Procedure Date: 02/05/2003 CREATED BY INTERFACE FACET DENERATION RADIOFREQUENCY-EA ADDL LEVEL Procedure Date: 02/05/2003 CREATED BY INTERFACE FACET DENERATION RADIOFREQUENCY-EA ADDL LEVEL Procedure Date: 02/05/2003 CREATED BY INTERFACE FACET LUMBAR BLOCK Procedure Date: 11/20/2002 CREATED BY INTERFACE FACET LUMBAR BLOCK-EA ADD'L LEVEL Procedure Date: 11/20/2002 CREATED BY INTERFACE FACET LUMBAR BLOCK-EA ADD'L LEVEL Procedure Date: 11/20/2002 CREATED BY INTERFACE FLUROSCOPY USE(PAIN) Procedure Date: 02/05/2003 CREATED BY INTERFACE FLUROSCOPY USE(PAIN) Procedure Date: 11/20/2002 CREATED BY INTERFACE TOTAL KNEE ARTHROPLASTY / RIGHT/ROTATING PLATFORM CURVED Procedure Date: 01/14/2010 JOINT REPLACEMENT [id number] PACEMAKER IMPLANT loop recorder PRO ALLOGRAFT FOR SPINE SURGERY ONLY STRUCTURAL Bilateral 05/19/2022 ALLOGRAFT FOR SPINE SURGERY ONLY; STRUCTUAL (WRVU 1.81) performed by Rey Clayton MD at [facility] MAIN OR PRO ANTERIOR INSTRUMENTATION 2-3 VERTEBRAL SEGMENTS Bilateral 05/19/2022 ANT. SPINAL INSTRUMENTATION, 2-3 VERTEBRA, SEGMENTED (WRVU 11.94) performed by Rey Clayton MD at [facility] MAIN OR PRO ARTHRD ANT INTERDY CERVCL BELW C2 EA ADDL NTRSPC Bilateral 05/19/2022 ARTHRODESIS ANT INTERBDY CERVCL BELOW C2 EA ADDL INTRSPACE (WRVU 6.5) performed by Rey Clayton MD at [facility] MAIN OR PRO ARTHRODESIS, ANT INTERBODY,DECOMPRESSION; CERVICAL BELOW C2 Bilateral 05/19/2022 ARTHRODESIS, ANT INTERBODY,DECOMPRESSION; CERVICAL BELOW C2 (WRVU 25) performed by Rey Clayton MD at [facility] MAIN OR PRO DIAGNOSTIC BONE MARROW BIOPSIES & ASPIRATIONS N/A 04/22/2022 (OSC MSURG) BONE MARROW BIOPSY AND ASPIRATION; DIAGNOSTIC performed by Ellis Guy MD at [facility] OSC PRO INCISE FINGER TENDON SHEATH Right 05/15/2021 TENDON SHEATH INCISION (TRIGGER FINGER) (WRVU 3.11) performed by Jovan Duong MD at [facility] MAIN OR PRO INCISE FINGER TENDON SHEATH Left 11/29/2023 TENDON SHEATH INCISION (TRIGGER FINGER) (WRVU 3.11) performed by Jovan Duong MD at [facility] OSC PRO INSERTION SUBQ CARDIAC RHYTHM MONITOR W/PRGRMG Left 08/10/2022 INSERTION, SUBQ CARDIAC RHYTHM MONITOR, INCLUDING PROGRAMMING performed by Garrett Benson MD at [facility] CATH LABS PRO REMOVAL SUBCUTANEOUS CARDIAC RHYTHM MONITOR Left 08/10/2022 REMOVAL, SUBQ CARDIAC RHYTHM MONITOR performed by Garrett Benson MD at [facility] CATH LABS PRO REVISE KNEE JOINT REPLACE, ALL PARTS Right 11/15/2019 @TOTAL KNEE REVISION ARTHROPLASTY, COMPLETE (WRVU 27.11) performed by Sukhjinder Jauregui MD at [facility] MAIN OR XR JOINT ASPIRATION - LARGE JOINT RIGHT Right 01/02/2019 XR Fluoro Guided Joint Aspiration Large Right 01/02/2019 [facility] RAD XRAY Medications: Prior to Admission medications Medication Sig Start Date End Date Taking? Authorizing Provider valACYclovir (Valtrex) 500 mg tablet 500 mg. prn 12/24/21 PROVIDER, HISTORICAL Ubrelvy 100 mg tablet 07/09/23 PROVIDER, HISTORICAL SUMAtriptan (IMITREX) 20 mg/actuation [place], Non-Aerosol 1 spray by Nasal route as needed. PROVIDER, HISTORICAL multivitamin (THERAGRAN) Tablet Take 1 tablet by mouth daily. PROVIDER, HISTORICAL finasteride (Proscar) 5 mg tablet Take 5 mg by mouth daily. 04/02/23 PROVIDER, HISTORICAL benzonatate (Tessalon) 200 mg capsule Take 200 mg by mouth 3 times daily as needed for Cough. 01/05/23 PROVIDER, HISTORICAL acetaminophen (Tylenol) 500 mg tablet as needed. 01/16/17 PROVIDER, HISTORICAL metoprolol succinate XL (Toprol-XL) 100 mg ER 24 hr tablet Take 1 tablet by mouth daily. 04/20/23 Diogo Robb PA magnesium hydroxide (MILK OF MAGNESIA ORAL) Take by mouth as needed. PROVIDER, HISTORICAL Xarelto 20 mg Tablet Take 1 tablet by mouth daily. 05/24/22 Renata Cordoba APRN oxyCODONE (Roxicodone) 5 mg Tablet Take 1-2 tablets by mouth every 4 hours as needed for Pain. Patient taking differently: Take 5-10 mg by mouth as needed for Pain. 05/20/22 Renata Cordoba APRN zonisamide (ZONEGRAN) 50 mg Capsule TAKE 1 CAPSULE BY MOUTH EVERY NIGHT AT BEDTIME 06/16/21 PROVIDER, HISTORICAL Emgality Pen 120 mg/mL Pen Injector INJECT 1 PEN SUBCUTANEOUSLY ONCE MONTHLY 06/09/21 PROVIDER, HISTORICAL lidocaine-prilocaine (EMLA) Cream as needed. 09/16/20 PROVIDER, HISTORICAL polyethylene glycoL (Miralax) 17 gram Powder in Packet Take 17 g by mouth as needed. 11/17/19 PROVIDER, HISTORICAL senna-docusate (Pericolace) 8.6-50 mg Tablet Take 2 tablets by mouth as needed. 11/17/19 PROVIDER, HISTORICAL acyclovir (ZOVIRAX) 200 mg Capsule 1 capsule as needed. Indications: prn PROVIDER, HISTORICAL diclofenac (VOLTAREN) 1 % Gel Apply topically Once daily as needed. PROVIDER, HISTORICAL tamsulosin (Flomax) 0.4 mg Capsule TK 1 C PO QD 04/23/20 PROVIDER, HISTORICAL fluticasone propionate (FLONASE) 50 mcg/actuation [place], Suspension INSTILL 1SPRAY IN EACH NOSTRIL TWICE A DAY 02/27/20 PROVIDER, HISTORICAL lamoTRIgine (LAMICTAL) 25 mg Tablet Take 50 mg by mouth 2 times daily. 10/10/19 PROVIDER, HISTORICAL SUMAtriptan (IMITREX) 100 mg Tablet Take 100 mg by mouth as needed for Migraine. Initial dose: 25 mg, 50 mg, or 100 mg (take with fluids). May repeat dose after 2 hours. Max daily dose: 200 mg PROVIDER, HISTORICAL Triamcinolone Acetonide 0.025 % Lotion Apply topically as needed. PROVIDER, HISTORICAL BOTOX 200 unit Recon Soln Inject 200 Units as directed Q 3 Months. 09/14/17 PROVIDER, HISTORICAL verapamil (CALAN-SR) 120 mg Tablet Sustained Release Take 1 tablet by mouth daily. Patient taking differently: Take 120 mg by mouth nightly. 07/27/17 Christina Lopez APRN levothyroxine (Synthroid) 100 mcg Tablet Take 100 mcg by mouth daily. PROVIDER, HISTORICAL baclofen (LIORESAL) 10 mg tablet Take 10 mg by mouth nightly as needed. PROVIDER, HISTORICAL simvastatin (ZOCOR) 10 mg tablet Take 10 mg by mouth nightly. PROVIDER, HISTORICAL Revised 03/29/18 * Tasneem Daly APRN - 01/06/2024 1:31 PM EST INTERVENTIONAL RADIOLOGY FOCUSED H&P: Procedure: MRI Brain w/wo with moderate sedation Update to H&P: The patient's history and physical exam have been reviewed and completed. There has been NO interval change from that of the pre-procedural note done within the last 30 days. There is NO change in the procedural plan. Physical Exam: Cardiovascular: Regular, Normal Pulmonary: Breath sounds clear to auscultation Abdomen: Soft, non-tender, + bowel sounds x 4, denies N/V/D Vascular: PWD, peripheral pulses strong and equal, normal S1/S2 Meds: Current medications reviewed. No medications held. Labs: No new relevant labs. The planned procedure (and sedation plan if appropriate) , its benefits and risks, and alternativeswere discussed with the patient. The patient consented to the procedure. PRE-SEDATION ASSESSMENT: Sedation Plan: moderate (conscious sedation) ASA: 1: Normally healthy patient Mallampati: II: tonsillar pillars are blocked by the tongue Confirm NPO status: Yes History of anesthetic complications: No Current medications reviewed: Yes Allergies reviewed: Yes documented in this encounter Plan of Treatment Upcoming Encounters Date Type Department Care Team (Late st Contact Info) Description 08/18/2024 11:00 AM EDT Hospital Encounter Non-[place] [address] Arrived 02/22/2025 1:30 PM EDT Appointment Hematology [place] [address] 02/22/2025 2:30 PM EDT Office Visit Hematology [place] [phone] Ellis Childers MD [facility] [place] [address] Felicita Landa APRN [facility] [place] [address] documented as of this encounter Procedures Procedure Name Priority Date/Time Associated Diagnosis Comments MRI BRAIN WWO CONTRAST (GENERIC) Routine 01/06/2024 3:19 PM EST H/O epistaxis Epistaxis Mass of nasopharynx Dizziness documented in this encounter Results * MRI Brain wwo Contrast (Generic) (01/06/2024 3:19 PM EST) Anatomical Region Laterality Modality Head Magnetic Resonan ce Impressions 01/07/2024 2:37 PM EST Approximately 1 cm nasopharyngeal mass. ENT evaluation is thought to be indicated. Recommended. Thank you for letting us participate in the care of this patient. ??If you are a health care provider and have any questions regarding this report, please contact the number below. ??For patients who have questions please contact the health career professional that requested your imaging first. ? 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 Please rule out possible tumor of skull base. Z87.898, Personal history of other specified conditions - R04.0, Epistaxis - J39.2, Other diseases of pharynx - R42, Dizziness and giddiness TECHNIQUE: MRI of the brain was performed before and after the intravenous administration of 14cc Dotarem. COMPARISON: CT the brain 05/03/2023 FINDINGS: A small heterogeneous mixed solid and cystic lesion which shows minimal enhancement is identified in the posterior nasopharynx just to the right of midline,.This measures approximately 13 x 10 mm The appearance, including eccentric location and somewhat peduncular appearance, is somewhat atypical for Tornwaldt cyst or retention cyst in the lesion appears solid. Direct visualization is recommended.. Orbital contents are unremarkable. Mild involution of the brain is noted. There is encephalomalacia identified in the right parieto-occipital region with ex vacuo dilatation of the right lateral ventricular body, T2 hyperintensity and gyral atrophy. These findings most consistent with an old ischemic insult. A tiny right frontal lobe cortical infarct is noted which is thought to be old. Chronic white matter disease is noted likely related to small vessel changes of aging, hypertension or atherosclerosis. No major vascular territory infarct is identified. The major arterial and central venous flow voids are normal. No abnormal enhancement of the brain or meninges is identified. Evaluation of the superior nasal cavity, ethmoid sinuses, frontal sinuses, and the anterior cranial fossa reveals no masses to account for decrease in sense of smell. 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 Please rule out possible tumor of skull base. Z87.898, Personal history of other specified conditions - R04.0, Epistaxis- J39.2, Other diseases of pharynx - R42, Dizziness and giddiness TECHNIQUE: MRI of the brain was performed before and after the intravenousadministration of 14cc Dotarem. COMPARISON: CT the brain 05/03/2023 FINDINGS: A small heterogeneous mixed solid and cystic lesion which shows minimal enhancement is identified in the posterior nasopharynx just to the rightof midline,.This measures approximately 13 x 10 mm The appearance, including eccentric location and somewhat peduncularappearance, is somewhat atypical for Tornwaldt cyst or retention cyst in the lesionappears solid. Direct visualization is recommended.. Orbital contents are unremarkable. Mild involution of the brain is noted. There is encephalomalaciaidentified in the right parieto-occipital region with ex vacuo dilatation of the rightlateral ventricular body, T2 hyperintensity and gyral atrophy. These findingsmost consistent with an old ischemic insult. A tiny right frontal lobecortical infarct is noted which is thought to be old. Chronic white matter diseaseis noted likely related to small vessel changes of aging, hypertension or atherosclerosis. No major vascular territory infarct is identified. The major arterial and central venous flow voids are normal. No abnormal enhancement of the brain or meninges is identified. Evaluation of thesuperior nasal cavity, ethmoid sinuses, frontal sinuses, and the anterior cranialfossa reveals no masses to account for decrease in sense of smell. IMPRESSION Approximately 1 cm nasopharyngeal mass. ENT evaluation is thought to be indicated. Recommended. Thank you for letting us participate in the care of this patient. If youare a health care provider and have any questions regarding this report,please contact the number below. For patients who have questions please contactthe health career professional that requested your imaging first. Armando Weiss MD IMG MRI ORDERABLES documented in this encounter Visit Diagnoses Diagnosis H/O epistaxis Personal history of other diseases of respiratory system Epistaxis Mass of nasopharynx Unspecified disease of pharynx Dizziness Dizziness and giddiness documented in this encounter Administered Medications Inactive Administered Medications - up to 3 most recent administrations Medication Order MAR Action Action Date Dose Rate Site fentaNYL (pf) (50 mcg/mL) multi-dose injection 25-50 mcg 25-50 mcg, Intravenous, EVERY 3 MIN PRN, Starting on Zakia 01/06/24 at 1339, Until Zakia 01/06/24 at 1611, Pain, per unit protocol, For use in Interventional Radiology (IR) only for procedural sedation with direct provider supervision and verbal order. - Start dose: 50 mcg (reduce dose to 25 mcg if history of sedation sensitivity). - Titration dose: 25-50 mcg IV, (based on patient response) every 3 minutes PRN to maintain procedural pain less than 2 per Pain Scale. Maximum dose: 50 mcg/dose, 250 mcg/hour, Angio/IR (Intra-Procedure), Routine Given 01/06/2024 2:35 PM EST 25 mcg Given 01/06/2024 2:30 PM EST 50 mcg Given 01/06/2024 2:25 PM EST 25 mcg midazolam (pf) (Versed) (1 mg/mL) multi-dose injection 0.5-1 mg 0.5-1 mg, Intravenous, EVERY 3 MIN PRN, Starting on Zakia 01/06/24 at 1339, Until Zakia 01/06/24 at 1611, Sedation, For use in Interventional Radiology (IR) only for procedural sedation with direct provider supervision and verbal order. - Start dose: 1 mg (Reduce dose to 0.5 mg if history of sedation sensitivity). - Titration dose: 0.5 mg - 1 mg (based on patient response) every 3 minutes PRN to obtain RASS score of -3. Maximum dose: 1 mg/dose, 5 mg/hour., Angio/IR (Intra-Procedure), Routine Given 01/06/2024 2:35 PM EST 0.5 mg Given 01/06/2024 2:30 PM EST 1 mg Given 01/06/2024 2:25 PM EST 0.5 mg oxyCODONE (Roxicodone) tablet 10 mg 10 mg, Oral, ONCE, 1 dose, On Zakia 01/06/24 at 1615, Angio/IR (Recovery-Hospital Unit), Routine Given 01/06/2024 3:49 PM EST 10 mg sodium chloride 0.9 % (flush) (BD PosiFlush Normal Saline 0.9) flush 5 mL 5 mL, Intravenous, 2 TIMES DAILY, First dose on Zakia 01/06/24 at 1400, Until Discontinued, Angio/IR (Day of Procedure), Routine Given 01/06/2024 2:00 PM EST 5 mLs documented in this encounter Care Teams Hoop Flaring Machine Operator Relationship Specialty Start Date End Date Radha Mckeon MD [address] [place] [address] PCP - General 09/23/10 documented as of this encounter
--- OUTSIDE RECORDS SUMMARY | 2024-07-24 17:19 | XMS_ITS | Encounter Summary ---
Author Organization [facility] [place] [address] Care Team Providers Care New Car Get Ready Mechanic Name Role Phone Radha Mckeon MD Primary Care Provider [phone] Encounter Details Date Type Department Care Team (Late st Contact Info) Description 11/30/2023 Orders [place] [phone] Jovita Perez, RN Mass of nasopharynx; Dizziness Social History Tobacco Use Types Packs/Day Years [...] place to sleep or slept in a [place] health care facility (including now)? No 04/01/2022 IPV Inpatient Questions [...] AM EDT Hospital Encounter Non-[place] [address] Arrived 02/22/2025 1:30 PM EDT Appointment Hematology and Oncology at [address] 02/22/2025 2:30 PM EDT Office Visit Hematology and Oncology at [place] [phone] Ellis Childers MD [facility] DR HEMATOLOGY [place] [address] Felicita Landa APRN [facility] HEMATOLOGY [place] [address] documented as of this encounter Results * XR Chest One [...] who have questions please contact the health caregiver assisted living that requested your imaging first. ? Electronically signed by: Vandana Elizabeth MD, [facility] ([phone]), at 12/06/2023 7:05 PM Narrative 12/06/2023 7:05 [...] patients who have questions please contactthe health caregiver assisted living that requested your imaging first. Electronically signed by: Vandana Elizabeth MD, [facility]([phone]), at 12/06/2023 7:05 PM Armando Weiss MD IMG DX ORDERABLES documented in this encounter Visit Diagnoses Diagnosis Mass of nasopharynx Unspecified disease of pharynx Dizziness Dizziness and giddiness Mass of nasopharynx Unspecified disease of pharynx Dizziness Dizziness and giddiness documented in this encounter Care Teams New Car Get Ready Mechanic Relationship Specialty Start Date End Date Radha Mckeon MD [address] [place] [address] PCP - General 09/23/10 documented as of this encounter
--- OUTSIDE RECORDS SUMMARY | 2024-07-24 17:19 | XMS_ITS | Encounter Summary ---
Author Organization [facility] [place] [address] Care Team Providers Care Freelance Recruiter Name Role Phone Radha Mckeon MD Primary Care Provider [phone] Encounter Details Date Type Department Care Team (Latest Contact Info) Description 01/21/2024 11:00 AM EDT - 01/21/2024 11:59 PM EDT Hospital Encounter [place] [phone] Discharge Disposition: Home Social History Tobacco Use [...] in a long-term (including now)? No 04/01/2022 DH IPV Inpatient [...] mg tablet 07/09/2023 SUMAtriptan (IMITREX) 20 mg/actuation [place], Non-Aerosol 1 spray by Nasal route as [...] QD 04/23/2020 fluticasone propionate (FLONASE) 50 mcg/actuation [place], Suspension INSTILL 1SPRAY IN EACH NOSTRIL TWICE [...] AM EDT Hospital Encounter [place] [address] Arrived 02/22/2025 1:30 PM EDT Appointment [place]ology [place] [phone] 02/22/2025 2:30 PM EDT Office Visit [place]ology [place] [address] Ellis Childers MD [facility] DR HEMATOLOGY AND ONCOLOGY [place], [place] [id number] Felicita Landa APRN [facility] DR HEMATOLOGY [place] [address] documented as of this encounter Procedures Procedure Name Priority Date/Time Associated Diagnosis Comments PRG ILR INTERROGATION REMOTE UP TO 30 DAYS Routine 01/03/2024 2:08 AM EST documented in this encounter Results * Cardiac Device Check - Remote (01/03/2024 2:08 AM EST) Anatomical Region Laterality Modality Other 01/03/2024 2:08 AM EST Garrett Benson MD IMPLANTABLE CARDIAC DEVICE documented in this encounter Visit Diagnoses Not on filedocumented in this encounter Care Teams Freelance Recruiter Relationship Specialty Start Date End Date Radha Mckeon MD [address] [place] [address] PCP - General 09/23/10 documented as of this encounter
--- OUTSIDE RECORDS SUMMARY | 2024-07-24 17:19 | XMS_ITS | Encounter Summary ---
Author Organization [facility] [place] [address] Care Team Providers Care Blast Furnace Helper Name Role Phone Radha Mckeon MD Primary Care Provider [phone] Encounter Details Date Type Department Care Team (Latest Contact Info) Description 04/20/2024 11:00 AM EDT - 04/20/2024 11:59 PM EDT Hospital Encounter [place] [phone] Discharge Disposition: Home Social History Tobacco Use [...] in a [facility] (including now)? No 04/01/2022 DH IPV Inpatient [...] mg tablet 07/09/2023 SUMAtriptan (IMITREX) 20 mg/actuation [place], Non-Aerosol 1 spray by Nasal route as [...] QD 04/23/2020 fluticasone propionate (FLONASE) 50 mcg/actuation [place], Suspension INSTILL 1SPRAY IN EACH NOSTRIL TWICE [...] AM EDT Hospital Encounter Non[place] [address] Arrived 02/22/2025 1:30 PM EDT Appointment Hematology [place] [address] 02/22/2025 2:30 PM EDT Office Visit [place]ematology [place] [address] Ellis Childers MD [facility] DR HEMATOLOGY AND ONCOLOGY [place], [place] [phone] Felicita Landa APRN [facility] DR [place] [address] documented as of this encounter Procedures Procedure Name Priority Date/Time Associated Diagnosis Comments PRG ILR INTERROGATION REMOTE UP TO 30 DAYS Routine 04/02/2024 2:02 AM EDT documented in this encounter Results * Cardiac Device Check - Remote (04/02/2024 2:02 AM EDT) Anatomical Region Laterality Modality Other 04/02/2024 2:02 AM EDT Garrett Benson MD IMPLANTABLE CARDIAC DEVICE documented in this encounter Visit Diagnoses Not on filedocumented in this encounter Care Teams Blast Furnace Helper Relationship Specialty Start Date End Date Radha Mckeon MD [address] [place] [address] PCP - General 09/23/10 documented as of this encounter
--- OUTSIDE RECORDS SUMMARY | 2024-07-24 17:19 | XMS_ITS | Encounter Summary ---
Author Organization [facility] [place] [address] Care Team Providers Care Assistant Superintendent Name Role Phone Radha Mckeon MD Primary Care Provider [phone] Encounter Details Date Type Department Care Team (Latest Contact Info) Description 12/06/2023 Travel Social History Tobacco Use Types Packs/Day [...] AM EDT Hospital Encounter [place] [address] Arrived 02/22/2025 1:30 PM EDT Appointment [place] [address] 02/22/2025 2:30 PM EDT Office Visit Hematology and Oncology at [place] [address] Ellis Childers MD [facility] [address] [place] [address] Felicita Landa APRN [facility] [address] [place] [address] documented as of this encounter Visit Diagnoses Not on filedocumented in this encounter Care Teams Assistant Superintendent Relationship Specialty Start Date End Date Radha Mckeon MD [address] [place] [address] PCP - General 09/23/10 documented as of this encounter
--- OUTSIDE RECORDS SUMMARY | 2024-07-24 17:19 | XMS_ITS | Encounter Summary ---
Author Organization [facility] [place] [address] Care Team Providers Care Forest Fire Management Officer Name Role Phone Radha Mckeon MD Primary Care Provider [phone] Reason for Visit * Reason Comments Follow-up Encounter Details Date Type Department Care Team (Late st Contact Info) Description 02/24/2024 2:30 PM EDT Office Visit Hematology [place] [address] Ellis Childers MD [facility] [address] [place] [address] Felicita Landa APRN [facility] [address] [place] [address] Jacky Solis MD [facility] DR HEMATOLOGY/[place] [address] History of ITP; Thrombocytopenia Social History Tobacco Use Types Packs/Day Years [...] Mass Index 22.43 02/24/2024 2:43 PM EDT documented in this encounter Progress Notes * Syeda Felicita La, SAND DIGGER - 02/24/2024 2:30 PM EDT [facility] HEMATOLOGY FOLLOW UP VISIT NOTE DATE OF VISIT : 02/24/24 REASON FOR VISIT: F/up for thrombocytopenia HISTORY OF PRESENT ILLNESS Malik Machado is a 73 y.o. male with PMH of A. Fib, on anticoagulation, hypothyroidism, cervical radiculopathy, chronic pain syndrome, migrain, BPH,seizure, referred for evaluation of thrombocytopenia Presentation: Noted to have chronic thrombocytopenia on routine Pre Op labs for surgical decompression of cervical foraminal stenosis. On my review of data : He is noted to have chronic thrombocytopenia since 2012 platelet count ranging between 139 -69k. Labs from referring MD: Most recent CBC on 03/12/2022: WBC: 4.7, normal differential, Hgb: 16, MCV: 95, platelets: 80k 04/22/22: Bone marrow biopsy: 1. Normocellular marrow (~50%) with complete multilineage hematopoiesis (see discussion) 2. Iron stores are present per iron stain 3. Peripheral smear with mild thrombocytopenia 4. 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 Physically has been doing ok. He is also finishing his degree and working. He has had 3 episodes of epistaxis. Has seen ENT in past and plans to get ENT closer to home. - Walks 3-4 miles a day; - No B symptoms - No infections - Back pain continues to be his big issue - No active cardiac/resp/GI issues; Rest of the ROS: Negative PROBLEM LIST Patient Active Problem List Diagnosis A-fib Overview Note: --Recurrent AF --S/P cardioversions x 3 (09/2005, 01/2006, 07/2007). --AF that has resolved spontaneously (12/2006, etc). 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 --Flecainide stopped after 4 doses due to [place]/QRS prolongation, 12/2007. --Started on dofetilide 500mcg BID [...] of periodic palpitations 2015. -- Admitted to [facility] 08/27/16, with A. fib at a rate of 112 bpm on metoprolol 100 mg daily/verapamil 180 mg daily; DCCV; metoprolol increased to 150 mg daily; started Eliquis. --Echo 11/2016: EF 58%. --Repeat afib ablation 11/23/2016: Veins still isolated; posterior wall isolation performed, stage IV. Hypertension Overview Note: ILR at EOL - no telemetry S/p C4-6 ACDF 05/19/22 (Forrest) Thrombocytopenia Radiculopathy of cervical region Trigger middle finger of right hand s/p right long finger A1 kayla release for trigger finger 05/15/21 (Dr Duong) Radiculopathy of cervical region Neck pain Numbness and tingling in left arm History of loop recorder - [email or web address] LINQII Overview Note: ILR Postoperative anemia due to acute blood loss S/P right total knee arthroplasty revision - poly swab and patellar revision Moschetti 11/15/2019 Thrombopenia Essential hypertension Paroxysmal atrial fibrillation Failed total knee arthroplasty Right knee pain Debility Lightheadedness Adverse drug effects Overview Note: --Amitriptyline (palpitations), Lipitor (liver enzyme abnormalities), flecainide ([place]/QRS prolongation noted 12/2007). History of surgery Overview Note: --S/p pyloric stenosis surgery 195, appendectomy 1969, right carpal tunnel surgery 1974, spinal fusion 1993 (redo back surgery 1995, 1998), umbilical hernia repair 1997, left carpal tunnel repair 2002, left elbow surgery 2004, right total knee replacement 2009. S/P knee replacement Overview Note: SURGERY DATE: 01/14/2010 MICHAEL CHAVEZ MD PROCEDURE PERFORMED: Right total knee arthroplasty. IMPLANTS USED: All implants were from the [employer] RAREFORM total knee system. 1. A size 4 press-fit cruciate retaining porous femoral component. 2. A size 4 press- fit porous rotating platform tibial tray.3. A size 4 x 10-mm rotating platform polyethylene. 4. A 35-mm round patella. 5. Half batch of quick set cement. RBBB (right bundle branch block with left anterior fascicular block) Overview Note: Chronic back pain, causing disability Overview Note: --Methadone and baclofen Rx, 2010. --Currently on oxycodone. --Lumbar radiculopathy. PAST SURGICAL Hx: Past Surgical History: Procedure Laterality Date CREATED [...] PLATFORM CURVED Procedure Date: 01/14/2010 JOINT REPLACEMENT [id number] PACEMAKER IMPLANT loop recorder PRO ALLOGRAFT FOR SPINE SURGERY ONLY STRUCTURAL Bilateral 05/19/2022 ALLOGRAFT FOR SPINE SURGERY ONLY; STRUCTUAL (WRVU 1.81) performed by Rey Clayton MD at [facility] MAIN OR PRO ANTERIOR INSTRUMENTATION 2-3 VERTEBRAL SEGMENTS Bilateral 05/19/2022 ANT. SPINAL INSTRUMENTATION, 2-3 VERTEBRA, SEGMENTED (WRVU 11.94) performed by Rey Clayton MD at [facility] MAIN OR PRO ARTHRD ANT INTERDY CERVCL BELW C2 EA ADDL NTRSPC Bilateral 05/19/2022 ARTHRODESIS ANT INTERBDY CERVCL BELOW C2 EA ADDL INTRSPACE (WRVU 6.5) performed by Rey Clayton MD at [facility] MAIN OR PRO ARTHRODESIS, ANT INTERBODY,DECOMPRESSION; CERVICAL BELOW C2 Bilateral 05/19/2022 ARTHRODESIS, ANT INTERBODY,DECOMPRESSION; CERVICAL BELOW C2 (WRVU 25) performed by Rey Clayton MD at [facility] MAIN OR PRO DIAGNOSTIC BONE MARROW BIOPSIES & ASPIRATIONS N/A 04/22/2022 (OSC MSURG) BONE MARROW BIOPSY AND ASPIRATION; DIAGNOSTIC performed by Ellis Guy MD at [facility] OSC PRO INCISE FINGER TENDON SHEATH Right 05/15/2021 TENDON SHEATH INCISION (TRIGGER FINGER) (WRVU 3.11) performed by Jovan Duong MD at [facility] MAIN OR PRO INCISE FINGER TENDON SHEATH Left 11/29/2023 TENDON SHEATH INCISION (TRIGGER FINGER) (WRVU 3.11) performed by Jovan Duong MD at [facility] OSC PRO INSERTION SUBQ CARDIAC RHYTHM MONITOR W/PRGRMG Left 08/10/2022 INSERTION, SUBQ CARDIAC RHYTHM MONITOR, INCLUDING PROGRAMMING performed by Garrett Benson MD at [facility] CATH LABS PRO REMOVAL SUBCUTANEOUS CARDIAC RHYTHM MONITOR Left 08/10/2022 REMOVAL, SUBQ CARDIAC RHYTHM MONITOR performed by Garrett Benson MD at [facility] CATH LABS PRO REVISE KNEE JOINT REPLACE, ALL PARTS Right 11/15/2019 @TOTAL KNEE REVISION ARTHROPLASTY, COMPLETE (WRVU 27.11) performed by Sukhjinder Jauregui MD at [facility] MAIN OR XR JOINT ASPIRATION - LARGE JOINT RIGHT Right 01/02/2019 XR Fluoro Guided Joint Aspiration Large Right 01/02/2019 [facility] RAD XRAY MEDICATIONS valACYclovir (Valtrex) 500 mg tablet Ubrelvy 100 mg tablet SUMAtriptan (IMITREX) 20 mg/actuation [place], Non-Aerosol multivitamin (THERAGRAN) Tablet finasteride (Proscar) 5 mg tablet benzonatate (Tessalon) 200 mg capsule acetaminophen (Tylenol) 500 mg tablet metoprolol succinate XL (Toprol-XL) 100 mg ER 24 hr tablet magnesium hydroxide (MILK OF MAGNESIA ORAL) Xarelto 20 mg Tablet oxyCODONE (Roxicodone) 5 mg Tablet zonisamide (ZONEGRAN) 50 mg Capsule Emgality Pen 120 mg/mL Pen Injector lidocaine-prilocaine (EMLA) Cream polyethylene glycoL (Miralax) 17 gram Powder in Packet senna-docusate (Pericolace) 8.6-50 mg Tablet acyclovir (ZOVIRAX) 200 mg Capsule diclofenac (VOLTAREN) 1 % Gel tamsulosin (Flomax) 0.4 mg Capsule fluticasone propionate (FLONASE) 50 mcg/actuation [place], Suspension lamoTRIgine (LAMICTAL) 25 mg Tablet SUMAtriptan (IMITREX) 100 mg Tablet Triamcinolone Acetonide 0.025 % Lotion BOTOX 200 unit Recon Soln verapamil (CALAN-SR) 120 mg Tablet Sustained Release levothyroxine (Synthroid) 100 mcg Tablet baclofen (LIORESAL) 10 mg tablet simvastatin (ZOCOR) 10 mg tablet ALLERGIES/ADR Allergies Allergen Reactions Zolpidem Other reaction(s): bad [...] Flecainide Other (See Comments) Adverse effect caused WI and QRS prolongation Other reaction(s): Other (See Comments) Adverse effect caused [place] and QRS prolongation Other reaction(s): Other (See Comment) PERSONAL and SOCIAL HISTORY Lives in: [place], [place] ([place] hr [place] [facility] [facility] is the closest hospital. 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 Works as [employer] in [place]. ETOH: rare Smokin.5ppd x Quit 1982. HIPPA Contact Permission: OK to leave voice mail on phone. FAMILY HISTORY Family History Problem Relation Age of Onset Heart Disease Mother Heart Disease Father Cancer Brother 58 panceratic PHYSICAL EXAM VITAL SIGNS: Blood pressure 161/85, pulse 66, temperature 36.1 ??C (97 ??F), temperature source Temporal, resp. rate 18, height 180.3 cm (5' 10.98), weight 72.9 kg (160 lb 11.5 oz), SpO2 100%. Vitals: 02/24/24 1443 BP: 161/85 Patient Position: Sitting Pulse: 66 Resp: 18 Temp: 36.1 ??C (97 ??F) TempSrc: Temporal SpO2: 100% Weight: 72.9 kg (160 lb 11.5 oz) Height: 180.3 cm (5' 10.98) ECOG PS: 1 GENERAL: Malik Machado is a well-appearing 73 y.o. male in no acute distress. HEENT: Oropharynx : moist , clear, No lesions, No thrush. Wears dentures; CARDIOVASCULAR: Heart with regular rate and rhythm without S3,S4 or murmurs. PULMONARY: Lungs are clear to auscultation without rales, rhonchi or wheezing. GASTROINTESTINAL: Abdomen soft and non-tender - did not do deep palpation as he had recent abdominal surgery. MUSCULOSKELETAL: Neck supple with full ROM. No spine or CVA tenderness. SKIN: No rashes, bruises or petechiae. NEUROLOGICAL: Alert and oriented to person, place and time; No focal neurological deficits; EXT: No peripheral edema. PSYCHIATRIC: normal affect and mood LABORATORY Recent Results (from the past 72 hour(s)) Hemogram Result Value Ref Range WBC 6.0 4.0 - 9.5 x10(3)/mcL RBC 4.84 4.58 - 5.54 x10(6)/mcL Hemoglobin 15.3 13.7 - 16.5 g/dL Hematocrit 45.3 40.5 - 48.5 % MCV 93.6 (H) 82.9 - 93.1 fL MCH 31.6 27.5 - 32.1 pg MCHC 33.8 32.0 - 35.7 g/dL Platelets 99 (L) 145 - 357 x10(3)/mcL RDWSD 42.9 36.0 - 45.0 fL RDWCV 12.5 11.4 - 13.8 % MPV 11.7 7.6 - 12.9 fL nRBC % Auto 0.0 % nRBC Abs Auto 0.000 0.000 - 0.000 x10(3)/mcL Differential, Automated Result Value Ref Range Neutrophils % 68.7 % Neutr Abs (ANC) 4.12 1.70 - 6.10 x10(3)/mcL Lymphocytes % 15.4 % Lymphocytes Abs 0.9 0.9 - 3.2 x10(3)/mcL Monocytes % 12.5 % Monocyte Abs 0.8 0.3 - 0.9 x10(3)/mcL Eosinophils % 2.2 % Eosinophils Abs 0.1 0.0 - 0.4 x10(3)/mcL Basophils % 1.0 % Basophils Abs 0.1 0.0 - 0.1 x10(3)/mcL Immature Gran % 0.20 % Sho Gran Abs 0.01 0.00 - 0.04 x10(3)/mcL RADIOLOGY - None ASSESSMENT & PLANS Mr. Malik Machado is here for evaluation of isolated thrombocytopenia. 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 Of note, he did not respond to a trial of dexamethasone 40 mg x 4 days prior to his spine surgery. We discussed about ITP (immune thrombocytopenia), the indications to initiate therapy, s/s to monitor, risk factors for flare, use of IVIG + steroids for 1st line therapy etc. As his platelet count is well over 30k , we will continue active surveillance approach. His PLT are 99k today and stable from prior visits. # Epistaxis - saw ENT at [facility] # A. Fib - follows with cardiology at [facility]. On rivaroxaban. - He had Implantable loop recorder replaced recently. # Spine issues : S/p C4-C6 ACDF surgery for left upper extremity pain. This pain has improved. He still has low back pain. Follows with pain mgmt at [facility]. # Positive CHACORTA at 1 is to 160 titer : Advised him to follow-up with his PCP # TIA- following with neurology. RTC for f/up in 6 months, sooner if needed. I reviewed my impression and recommendations with Malik Machado and answered all the questions. Ptagreed with the plan. Felicita Landa, JANETTE, ISSAC [facility] Hematology/[place] [address] Pager: [phone] CC: Radha Mckeon MD documented in this encounter Plan of Treatment Upcoming Encounters Date Type Department Care Team (Late st Contact Info) Description 08/18/2024 11:00 AM EDT Hospital Encounter Non-[place] [address] Arrived 02/22/2025 1:30 PM EDT Appointment Hematology and Oncology at [place] [phone] 02/22/2025 2:30 PM EDT Office Visit Hematology [place] [address] Ellis Childers MD [facility] DR [place] [address] Felicita Landa APRN [facility] DR HEMATOLOGY [place] [address] documented as of this encounter Visit Diagnoses Diagnosis History of ITP Personal history of diseases of blood and blood-forming organs Thrombocytopenia Thrombocytopenia, unspecified documented in this encounter Care Teams Forest Fire Management Officer Relationship Specialty Start Date End Date Radha Mckeon MD [address] [place] [address] PCP - General 09/23/10 documented as of this encounter
--- OUTSIDE RECORDS SUMMARY | 2024-07-24 17:19 | XMS_ITS | Encounter Summary ---
Author Organization [place] [address] Care Team Providers Care Senior Engineering Team Leader Name Role Phone Radha Mckeon MD Primary Care Provider [phone] Encounter Details Date Type Department Care Team (Latest Contact Info) Description 03/06/2024 Travel Social History Tobacco Use Types Packs/Day [...] AM EDT Hospital Encounter Non-Invasive [place] [address] Arrived 02/22/2025 1:30 PM EDT Appointment [place]ology [place] [address] 02/22/2025 2:30 PM EDT Office Visit Hematology and Oncology at [place] [address] Ellis Childers MD [facility] DR HEMATOLOGY [place] [address] Felicita Landa APRN [facility] [address] HEMATOLOGY [place] [address] documented as of this encounter Visit Diagnoses Not on filedocumented in this encounter Care Teams Senior Engineering Team Leader Relationship Specialty Start Date End Date Radha Mckeon MD [address] [place] [address] PCP - General 09/23/10 documented as of this encounter
--- OUTSIDE RECORDS SUMMARY | 2024-07-24 17:19 | XMS_ITS | Encounter Summary ---
Author Organization [facility] [place] [address] Care Team Providers Care Biofuels Product Manager Name Role Phone Radha Mckeon MD Primary Care Provider [phone] Encounter Details Date Type Department Care Team (Latest Contact Info) Description 02/24/2024 Travel Social History Tobacco Use Types Packs/Day [...] AM EDT Hospital Encounter Non-[place] [address] Arrived 02/22/2025 1:30 PM EDT Appointment [place]ology [place] [address] 02/22/2025 2:30 PM EDT Office Visit Hematology and Oncology at [place] [address] Ellis Childers MD [facility] DR HEMATOLOGY [place] [address] Felicita Landa APRN [facility] DR HEMATOLOGY [place] [address] documented as of this encounter Visit Diagnoses Not on filedocumented in this encounter Care Teams Biofuels Product Manager Relationship Specialty Start Date End Date Radha Mckeon MD [address] [place] [address] PCP - General 09/23/10 documented as of this encounter
--- OUTSIDE RECORDS SUMMARY | 2024-07-24 17:19 | XMS_ITS | Encounter Summary ---
Author Organization [facility] [place] [address] Care Team Providers Care Journeyman Powerhouse Operator Name Role Phone Radha Mckeon MD Primary Care Provider [phone] Encounter Details Date Type Department Care Team (Latest Contact Info) Description 04/25/2024 Travel Social History Tobacco Use Types Packs/Day [...] place to sleep or slept in a fpc (including now)? No 04/01/2022 IPV Inpatient Questions [...] AM EDT Hospital Encounter [place] [address] Arrived 02/22/2025 1:30 PM EDT Appointment Hematology [place] [address] 02/22/2025 2:30 PM EDT Office Visit Hematology and Oncology at [place] [address] Ellis Childers MD [facility] [address] [place] [address] Felicita Landa APRN [facility] [address] [place]EMATOLOG[place] [address] documented as of this encounter Visit Diagnoses Not on filedocumented in this encounter Care Teams Journeyman Powerhouse Operator Relationship Specialty Start Date End Date Radha Mckeon MD [address] [place] [address] PCP - General 09/23/10 documented as of this encounter
--- OUTSIDE RECORDS SUMMARY | 2024-07-24 17:19 | XMS_ITS | Encounter Summary ---
Author Organization Count Includes [facility] [address] Care Team Providers Care Finishing Area Supervisor Name Role Phone Radha Mckeon MD Primary Care Provider [phone] Encounter Details Date Type Department Care Team (Latest Contact Info) Description 02/20/2024 11:00 AM EDT - 02/20/2024 11:59 PM EDT Hospital Encounter Non-Invasive [place] [phone] Discharge Disposition: Home Social History Tobacco Use [...] mg tablet 07/09/2023 SUMAtriptan (IMITREX) 20 mg/actuation [place], Non-Aerosol 1 spray by Nasal route as [...] QD 04/23/2020 fluticasone propionate (FLONASE) 50 mcg/actuation [place], Suspension INSTILL 1SPRAY IN EACH NOSTRIL TWICE [...] AM EDT Hospital Encounter Non-Invasive [place] [address] Arrived 02/22/2025 1:30 PM EDT Appointment Hematology [place] [phone] 02/22/2025 2:30 PM EDT Office Visit [place]ology [place] [address] Ellis Childers MD [facility] [address] HEMATOLOGY AND ONCOLOGY [place], [place] [id number] Felicita Landa APRN [facility] [place] [address] documented as of this encounter Procedures Procedure Name Priority Date/Time Associated Diagnosis Comments PRG ILR INTERROGATION REMOTE UP TO 30 DAYS Routine 02/01/2024 2:06 AM EDT documented in this encounter Results * Cardiac Device Check - Remote (02/01/2024 2:06 AM EDT) Anatomical Region Laterality Modality Other 02/01/2024 2:06 AM EDT Salomón Gan MD IMPLANTABLE CARDIAC DEVICE documented in this encounter Visit Diagnoses Not on filedocumented in this encounter Care Teams Finishing Area Supervisor Relationship Specialty Start Date End Date Radha Mckeon MD [address] [place] [address] PCP - General 09/23/10 documented as of this encounter
--- OUTSIDE RECORDS SUMMARY | 2024-07-24 17:19 | XMS_ITS | Encounter Summary ---
Author Organization [facility] [place] [address] Care Team Providers Care Partner Cco Name Role Phone Radha Mckeon MD Primary Care Provider [phone] Reason for Visit * Reason Onset Date Comments Medication Refill 04/27/2024 Encounter Details Date Type Department Care Team (Late st Contact Info) Description 04/27/2024 Refill Cardiology at [address] [address] [facility] [place] [address] Medication Refill Social History Tobacco Use Types Packs/Day Years [...] AM EDT Hospital Encounter [place] [phone] Arrived 02/22/2025 1:30 PM EDT Appointment H[place]ology [place] [address] 02/22/2025 2:30 PM EDT Office Visit Hematology [place] [address] [facility] [place] [address] [facility] [place] [address] documented as of this encounter Visit Diagnoses Diagnosis Paroxysmal atrial fibrillation Atrial fibrillation documented in this encounter Care Teams Partner Cco Relationship Specialty Start Date End Date Radha Mckeon MD [address] [place] [address] PCP - General 09/23/10 documented as of this encounter
--- OUTSIDE RECORDS SUMMARY | 2024-07-24 17:20 | XMS_ITS | Encounter Summary ---
Author Organization [facility] [address] Care Team Providers Care Jet Pilot Name Role Phone Radha Mckeon MD Primary Care Provider [phone] Encounter Details Date Type Department Care Team (Latest Contact Info) Description 11/22/2023 11:00 AM EST - 11/22/2023 11:59 PM EST Hospital Encounter Non-Invasive [place] [phone] Discharge Disposition: Home Social History Tobacco Use [...] place to sleep or slept in a usp (including now)? No 04/01/2022 Sex and Gender Information Value Date Recorded Sex Assigned at Not on file Gender Identity Not on file Sexual Orientation Not on file documented as of this encounter Medications at Time of Discharge Medication Sig Dispensed Refills Start Date End Date valACYclovir (Valtrex) 500 mg tablet 500 mg. prn 12/24/2021 Ubrelvy 100 mg tablet 07/09/2023 SUMAtriptan (IMITREX) 20 mg/actuation [place], Non-Aerosol 1 spray by Nasal route as [...] QD 04/23/2020 fluticasone propionate (FLONASE) 50 mcg/actuation [place], Suspension INSTILL 1SPRAY IN EACH NOSTRIL TWICE [...] mouth daily. 90 tablet 3 04/20/2023 04/27/2024 pregabalin (LYRICA) 100 mg Capsule Take 1 capsule by mouth 2 times daily. 02/11/2021 11/29/2023 documented as of this encounter Plan of Treatment Upcoming Encounters Date Type Department Care Team (Late st Contact Info) Description 08/18/2024 11:00 AM EDT Hospital Encounter Non-Invasive [place] [phone] Arrived 02/22/2025 1:30 PM EDT Appointment Hematology [place] [address] 02/22/2025 2:30 PM EDT Office Visit Hematology [place] [phone] Ellis Childers MD [facility] [address] [place] [address] Felicita Landa APRN [facility] [address] [place] [address] documented as of this encounter Procedures Procedure Name Priority Date/Time Associated Diagnosis Comments PRG ILR INTERROGATION REMOTE UP TO 30 DAYS Routine 11/03/2023 2:05 AM EST documented in this encounter Results * Cardiac Device Check - Remote (11/03/2023 2:05 AM EST) Anatomical Region Laterality Modality Other 11/03/2023 2:05 AM EST Sera Arteaga MD IMPLANTABLE CARDIAC DEVICE documented in this encounter Visit Diagnoses Not on filedocumented in this encounter Care Teams Jet Pilot Relationship Specialty Start Date End Date Radha Mckeon MD [address] [place] [address] PCP - General 09/23/10 documented as of this encounter
--- OUTSIDE RECORDS SUMMARY | 2024-07-24 17:20 | XMS_ITS | Encounter Summary ---
Author Organization [place] [address] Care Team Providers Care Home Care Manager Rn Name Role Phone Radha Mckeon MD Primary Care Provider [phone] Encounter Details Date Type Department Care Team (Latest Contact Info) Description 06/25/2023 11:00 AM EDT - 06/25/2023 11:59 PM EDT Hospital Encounter [place] [phone] Discharge Disposition: Home Social History Tobacco Use [...] in a fpc (including now)? No 04/01/2022 Sex and Gender Information Value Date Recorded Sex Assigned at Not on file Gender Identity Not on file Sexual Orientation Not on file documented as of this encounter Medications at Time of Discharge Medication Sig Dispensed Refills Start Date End Date valACYclovir (Valtrex) 500 mg tablet 500 mg. prn 12/24/2021 SUMAtriptan (IMITREX) 20 mg/actuation [place], Non-Aerosol 1 spray by Nasal route as [...] QD 04/23/2020 fluticasone propionate (FLONASE) 50 mcg/actuation [place], Suspension INSTILL 1SPRAY IN EACH NOSTRIL TWICE [...] tablet Take 10 mg by mouth nightly. carBAMazepine (TEGretol) 200 mg tablet Take 100 mg by mouth daily. 06/08/2023 08/08/2023 metoprolol succinate XL (Toprol-XL) 100 mg ER 24 hr tabletIndications:Par oxysmal atrial fibrillation Take 1 tablet by mouth daily. 90 tablet 3 04/20/2023 04/27/2024 pregabalin (LYRICA) 100 mg Capsule Take 1 capsule by mouth 2 times daily. 02/11/2021 11/29/2023 omeprazole (PRILOSEC) 20 mg Capsule, Delayed Release(E.C.) Take 20 mg by mouth 2 times daily. 10/07/2017 08/03/2023 documented as of this encounter Plan of Treatment Upcoming Encounters Date Type Department Care Team (Late st Contact Info) Description 08/18/2024 11:00 AM EDT Hospital Encounter [place] [address] Arrived 02/22/2025 1:30 PM EDT Appointment Hematology [place] [phone] 02/22/2025 2:30 PM EDT Office Visit [place] [address] [facility] [address] HEMATOLOGY [place] [address] [facility] [address] HEMATOLOGY [place] [address] documented as of this encounter Procedures Procedure Name Priority Date/Time Associated Diagnosis Comments PRG ILR INTERROGATION REMOTE UP TO 30 DAYS Routine 06/10/2023 2:07 AM EDT documented in this encounter Results * Cardiac Device Check - Remote (06/10/2023 2:07 AM EDT) Anatomical Region Laterality Modality Other 06/10/2023 2:07 AM EDT Salomón Gan MD IMPLANTABLE CARDIAC DEVICE documented in this encounter Visit Diagnoses Not on filedocumented in this encounter Care Teams Home Care Manager Rn Relationship Specialty Start Date End Date Radha Mckeon MD [address] [place] [address] PCP - General 09/23/10 documented as of this encounter
--- OUTSIDE RECORDS SUMMARY | 2024-07-24 17:20 | XMS_ITS | Encounter Summary ---
Author Organization [facility] [place] [address] Care Team Providers Care Yarn Examiner Name Role Phone Radha Mckeon MD Primary Care Provider [phone] Reason for Visit * Reason Comments Follow-up Encounter Details Date Type Department Care Team (Late st Contact Info) Description 08/26/2023 3:30 PM EDT Office Visit Hematology [place] [address] Ellis Childers MD [facility] [address] [place] [address] Felicita Landa APRN [facility] [address] [place] [address] Malik Tan MD [facility] HEMATOLOGY/[place] [address] Thrombocytopenia Social History Tobacco Use Types Packs/Day [...] a nursing home (including now)? No 04/01/2022 Sex and Gender Information Value Date Recorded Sex Assigned at Not on file Gender Identity Not on file Sexual Orientation Not on file documented as of this encounter Last Filed Vital Signs Vital Sign Reading Time Taken Comments Blood Pressure 160/85 08/26/2023 3:47 PM EDT Pulse 57 08/26/2023 3:47 PM EDT Temperature 36.2 ??C (97.2 ??F) 08/26/2023 3:47 PM ED T Respiratory Rate 18 08/26/2023 3:47 PM EDT Oxygen Saturation 99% 08/26/2023 3:47 PM EDT Inhaled Oxygen Concentration - - Weight 71.6 kg (157 lb 13.6 oz) 08/26/2023 3:47 PM EDT Height 180.3 cm (5' 10.98) 08/26/2023 3:47 PM E DT Body Mass Index 22.03 08/26/2023 3:47 PM EDT documented in this encounter Progress Notes * Felicita Landa, WIRE MILL OPERATOR - 08/26/2023 3:30 PM EDT [facility] HEMATOLOGY FOLLOW UP VISIT NOTE DATE OF VISIT : 08/26/23 REASON FOR VISIT: F/up for thrombocytopenia HISTORY [...] visit. Physically has been doing ok. He has been dealing with mental stressors with his family and unfortunately his has emphysema and is an alcoholic. He is also finishing his degree and working. He did have a visit to ED in May for possible trigeminal neuralgia. Otherwise no ED visits or hospitalizations. - Walks 3-4 miles a day; - [...] --Flecainide stopped after 4 doses due to HI/QRS prolongation, 12/2007. --Started on dofetilide 500mcg BID [...] of periodic palpitations 2015. -- Admitted to [facility] 08/27/16, with A. fib at [...] left arm History of loop recorder - [employer] Overview Note: ILR Postoperative anemia due to acute blood loss S/P right total knee arthroplasty revision - poly swab and patellar revision Moschetti 11/15/2019 Thrombopenia Essential hypertension Paroxysmal atrial fibrillation Failed total knee arthroplasty Right knee pain Debility Lightheadedness Adverse drug effects Overview Note: --Amitriptyline (palpitations), Lipitor (liver enzyme abnormalities), flecainide (HI/QRS prolongation noted 12/2007). History of surgery Overview Note: --S/p pyloric stenosis surgery 1951, appendectomy 1969, [...] PLATFORM CURVED Procedure Date: 01/14/2010 JOINT REPLACEMENT [id number] PACEMAKER IMPLANT loop recorder PRO ALLOGRAFT FOR SPINE SURGERY ONLY STRUCTURAL Bilateral 05/19/2022 ALLOGRAFT FOR SPINE SURGERY ONLY; STRUCTUAL (WRVU 1.81) performed by Rey Clayton MD at [facility] MAIN OR PRO ANTERIOR INSTRUMENTATION 2-3 VERTEBRAL SEGMENTS Bilateral 05/19/2022 ANT. SPINAL INSTRUMENTATION, 2-3 VERTEBRA, SEGMENTED (WRVU 11.94) performed by Rey Clayton MD at [facility] MAIN OR PRO ARTHRD ANT INTERDY CERVCL BELW C2 EA ADDL NTRSPC Bilateral 05/19/2022 ARTHRODESIS ANT INTERBDY CERVCL BELOW C2 EA ADDL INTRSPACE (WRVU 6.5) performed by Rey Clayton MD at [facility] MAIN OR PRO ARTHRODESIS, ANT INTERBODY,DECOMPRESSION; CERVICAL BELOW C2 Bilateral 05/19/2022 ARTHRODESIS, ANT INTERBODY,DECOMPRESSION; CERVICAL BELOW C2 (WRVU 25) performed by Rey Clayton MD at [facility] MAIN OR PRO DIAGNOSTIC BONE MARROW BIOPSIES & ASPIRATIONS N/A 04/22/2022 (OSC MSURG) BONE MARROW BIOPSY AND ASPIRATION; DIAGNOSTIC performed by Ellis Guy MD at [facility] OSC PRO INCISE FINGER TENDON SHEATH Right 05/15/2021 TENDON SHEATH INCISION (TRIGGER FINGER) (WRVU 3.11) performed by Jovan Duong MD at [facility] MAIN OR PRO INSERTION SUBQ CARDIAC RHYTHM MONITOR W/PRGRMG Left 08/10/2022 INSERTION, SUBQ CARDIAC RHYTHM MONITOR, INCLUDING PROGRAMMING performed by Garrett Benson MD at [facility] CATH LABS PRO REMOVAL SUBCUTANEOUS CARDIAC RHYTHM MONITOR Left 08/10/2022 REMOVAL, SUBQ CARDIAC RHYTHM MONITOR performed by Garrett Benson MD at [facility] CATH LABS PRO REVISE KNEE JOINT REPLACE, ALL PARTS Right 11/15/2019 @TOTAL KNEE REVISION ARTHROPLASTY, COMPLETE (WRVU 27.11) performed by Sukhjinder Jauregui MD at [facility] MAIN OR XR JOINT ASPIRATION - LARGE JOINT RIGHT Right 01/02/2019 XR Fluoro Guided Joint Aspiration Large Right 01/02/2019 [facility] RAD XRAY MEDICATIONS Ubrelvy 100 mg tablet SUMAtriptan (IMITREX) 20 mg/actuation [place], Non-Aerosol multivitamin (THERAGRAN) Tablet finasteride (Proscar) 5 mg tablet benzonatate (Tessalon) 200 mg capsule acetaminophen (Tylenol) 500 mg tablet metoprolol succinate XL (Toprol-XL) 100 mg ER 24 hr tablet magnesium hydroxide (MILK OF MAGNESIA ORAL) Xarelto 20 mg Tablet oxyCODONE (Roxicodone) 5 mg Tablet zonisamide (ZONEGRAN) 50 mg Capsule Emgality Pen 120 mg/mL Pen Injector polyethylene glycoL (Miralax) 17 gram Powder in Packet senna-docusate (Pericolace) 8.6-50 mg Tablet acyclovir (ZOVIRAX) 200 mg Capsule diclofenac (VOLTAREN) 1 % Gel tamsulosin (Flomax) 0.4 mg Capsule fluticasone propionate (FLONASE) 50 mcg/actuation [place], Suspension lamoTRIgine (LAMICTAL) 25 mg Tablet Triamcinolone Acetonide 0.025 % Lotion verapamil (CALAN-SR) 120 mg Tablet Sustained Release levothyroxine (Synthroid) 100 mcg Tablet baclofen (LIORESAL) 10 mg tablet simvastatin (ZOCOR) 10 mg tablet pregabalin (LYRICA) 100 mg Capsule lidocaine-prilocaine (EMLA) Cream SUMAtriptan (IMITREX) 100 mg Tablet BOTOX 200 unit Recon Soln ALLERGIES/ADR Allergies Allergen Reactions Zolpidem Other reaction(s): [...] Flecainide Other (See Comments) Adverse effect caused HI and QRS prolongation Other reaction(s): Other (See Comments) Adverse effect caused HI and QRS prolongation Other reaction(s): Other (See Comment) PERSONAL and SOCIAL HISTORY Lives in: [place], [place] ([place] [facility] [place] closest hospital. 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 Works as [employer] in [place]. ETOH: rare Smokin.5ppd x Quit 1982. JEAN MARIE Contact Permission: OK to leave voice mail on phone. FAMILY HISTORY Family History Problem Relation Age of Onset Heart Disease Mother Heart Disease Father Cancer Brother 58 panceratic PHYSICAL EXAM VITAL SIGNS: Blood pressure 160/85, pulse 57, temperature 36.2 ??C (97.2 ??F), temperature source Temporal, resp. rate 18, height 180.3 cm (5' 10.98), weight 71.6 kg (157 lb 13.6 oz), SpO2 99%. Vitals: 08/26/23 1547 BP: 160/85 Patient Position: Sitting Pulse: 57 Resp: 18 Temp: 36.2 ??C (97.2 ??F) TempSrc: Temporal SpO2: 99% Weight: 71.6 kg (157 lb 13.6 oz) Height: 180.3 cm (5' 10.98) ECOG PS: 1 GENERAL: Malik Machado is a well-appearing 73 y.o. male in no acute distress. HEENT: Oropharynx : moist , clear, No lesions, No thrush. Wears dentures; CARDIOVASCULAR: Heart with regular rate and rhythm without S3,S4 or murmurs. PULMONARY: Lungs are clear to auscultation without rales, rhonchi or wheezing. GASTROINTESTINAL: Abdomen soft and non-tender without palpable masses or hepatosplenomegaly. MUSCULOSKELETAL: Neck supple with full ROM. No spine or CVA tenderness. SKIN: No rashes, bruises or petechiae. NEUROLOGICAL: Alert and oriented to person, place and time; No focal neurological deficits; EXT: No peripheral edema. PSYCHIATRIC: normal affect and mood LABORATORY Recent Results (from the past 72 hour(s)) Hemogram Result Value Ref Range WBC 6.1 4.0 - 9.5 x10(3)/mcL RBC 4.81 4.58 - 5.54 x10(6)/mcL Hemoglobin 15.1 13.7 - 16.5 g/dL Hematocrit 44.3 40.5 - 48.5 % MCV 92.1 82.9 - 93.1 fL MCH 31.4 27.5 - 32.1 pg MCHC 34.1 32.0 - 35.7 g/dL Platelets 84 (L) 145 - 357 x10(3)/mcL RDWSD 41.4 36.0 - 45.0 fL RDWCV 12.2 11.4 - 13.8 % MPV 10.8 7.6 - 12.9 fL nRBC % Auto 0.0 % nRBC Abs Auto 0.000 0.000 - 0.000 x10(3)/mcL Differential, Automated Result Value Ref Range Neutrophils % 70.3 % Neutr Abs (ANC) 4.28 1.70 - 6.10 x10(3)/mcL Lymphocytes % 12.6 % Lymphocytes Abs 0.8 (L) 0.9 - 3.2 x10(3)/mcL Monocytes % 9.7 % Monocyte Abs 0.6 0.3 - 0.9 x10(3)/mcL Eosinophils % 6.1 % Eosinophils Abs 0.4 0.0 - 0.4 x10(3)/mcL Basophils % 1.0 % Basophils Abs 0.1 0.0 - 0.1 x10(3)/mcL Immature Gran % 0.30 % Sho Gran Abs 0.02 0.00 - 0.04 x10(3)/mcL RADIOLOGY - None [...] IVIG + steroids for 1st line therapy etc.. As his platelet count is well over 30k , we will continue active surveillance approach. His PLT are 84k today and stable from prior visits. In the setting of his evaluation of TIA, we will await # Epistaxis - saw ENT at [facility] # A. Fib - follows with cardiology at [facility]. On rivaroxaban. - He had Implantable loop recorder replaced recently. # Spine issues : S/p C4-C6 ACDF surgery for left upper extremity pain. This pain has improved. He still has low back pain. Follows with pain mgmt at [facility]. # Positive CHACORTA at 1 is to 160 titer : Advised him to follow-up with his PCP # TIA- following with neurology. RTC for f/up in 6 months, sooner if needed. I reviewed my impression and recommendations with Malik Machado and answered all the questions. Ptagreed with the plan. Felicita Landa, JANETTE, WIRE MILL OPERATOR [facility] Hematology/[place] [address] Pager: [phone] CC: Radha Mckeon MD documented in this encounter Plan of Treatment Upcoming Encounters Date Type Department Care Team (Late st Contact Info) Description 08/18/2024 11:00 AM EDT Hospital Encounter [place] [address] Arrived 02/22/2025 1:30 PM EDT Appointment Hematology [place] [address] 02/22/2025 2:30 PM EDT Office Visit Hematology [place] [phone] Ellis Childers MD [facility] [address] [place] [address] Felicita Landa APRN [facility] [address] [place] [address] documented as of this encounter Visit Diagnoses Diagnosis Thrombocytopenia Thrombocytopenia, unspecified documented in this encounter Care Teams Yarn Examiner Relationship Specialty Start Date End Date Radha Mckeon MD [address] [place] [address] PCP - General 09/23/10 documented as of this encounter
--- OUTSIDE RECORDS SUMMARY | 2024-07-24 17:20 | XMS_ITS | Encounter Summary ---
Author Organization [facility] [place] [address] Care Team Providers Care Property Officer Name Role Phone Radha Mckeon MD Primary Care Provider Encounter Details Date Type Department Care Team (Late st Contact Info) Description 05/08/2023 Telephone [place] [address] Janae Perez, RN Social History Tobacco Use Types Packs/Day Years [...] a group home (including now)? No 04/01/2022 Sex and Gender Information Value Date Recorded Sex Assigned at Not on file Gender Identity Not on file Sexual Orientation Not on file documented as of this encounter Miscellaneous Notes * Telephone Encounter - Janae Perez RN - 05/08/2023 10:16 AM EDT The following message below was left for the patient. Matteo. This message is for Malik Machado. This is a courtesy call from the [facility] ([facility] Emergency Department's (ED) Geriatric Emergency Medicine (GEM) Resource RN. PLEASE follow all instructions that were provided to you when you were discharged from the Emergency. The instructions are within the After Visit Summary (AVS). PLEASE follow-up w/ your Primary Care Provider: Dr. Radha Guillory. The [facility] ED Geriatric Emergency Medicine (GEM) Resource Nurse can be reached for NON-URGENT questions at [phone]: Wednesday - Wednesday 9:00AM - 5:00PM. If you are having a medical emergency, hang up and dial 911. Thank you for choosing [facility] for your care. documented in this encounter Plan of Treatment Upcoming Encounters Date Type Department Care Team (Late st Contact Info) Description 08/18/2024 11:00 AM EDT Hospital Encounter Non-In[place] [address] Arrived 02/22/2025 1:30 PM EDT Appointment Hematology [place] [address] 02/22/2025 2:30 PM EDT Office Visit Hematology [place] [address] Ellis Childers MD [facility] DR HEMATOLOGY [place] [address] Felicita Landa APRN [facility] DR HEMATOLOGY [place] [address] documented as of this encounter Visit Diagnoses Not on filedocumented in this encounter Care Teams Property Officer Relationship Specialty Start Date End Date Radha Mckeon MD [address] [place] [address] PCP - General 09/23/10 documented as of this encounter
--- OUTSIDE RECORDS SUMMARY | 2024-07-24 17:20 | XMS_ITS | Encounter Summary ---
Author Organization [facility] [place] [address] Care Team Providers Care Diamond Cleaver Name Role Phone Radha Mckeon MD Primary Care Provider [phone] Encounter Details Date Type Department Care Team (Latest Contact Info) Description 05/26/2023 11:00 AM EDT - 05/26/2023 11:59 PM EDT Hospital Encounter Non-[place] [id number] Discharge Disposition: Home Social History Tobacco Use [...] in a intermediate (including now)? No 04/01/2022 Sex and Gender Information Value Date Recorded Sex Assigned at Not on file Gender Identity Not on file Sexual Orientation Not on file documented as of this encounter Medications at Time of Discharge Medication Sig Dispensed Refills Start Date End Date valACYclovir (Valtrex) 500 mg tablet 500 mg. prn 12/24/2021 multivitamin (THERAGRAN) Tablet Take 1 tablet by [...] QD 04/23/2020 fluticasone propionate (FLONASE) 50 mcg/actuation [place], Suspension INSTILL 1SPRAY IN EACH NOSTRIL TWICE [...] nightly. carBAMazepine (TEGretol) 200 mg tablet Take 1 tablet by mouth daily for 30 days. 30 tablet 2023 06/03/2023 metoprolol succinate XL (Toprol-XL) 100 mg ER [...] AM EDT Hospital Encounter Non-Invasive Cardiology [place] [address] Arrived 02/22/2025 1:30 PM EDT Appointment Hematology [place] [address] 02/22/2025 2:30 PM EDT Office Visit Hematology and Oncology at [place] [phone] Ellis Childers MD [facility] [address] [place] [address] Felicita Landa APRN [facility] [address] [place]EMATOLOGY [place] [address] documented as of this encounter Procedures Procedure Name Priority Date/Time Associated Diagnosis Comments PRG ILR INTERROGATION REMOTE UP TO 30 DAYS Routine 05/10/2023 2:09 AM EDT documented in this encounter Results * Cardiac Device Check - Remote (05/10/2023 2:09 AM EDT) Anatomical Region Laterality Modality Other 05/10/2023 2:09 AM EDT Garrett Benson MD IMPLANTABLE CARDIAC DEVICE documented in this encounter Visit Diagnoses Not on filedocumented in this encounter Care Teams Diamond Cleaver Relationship Specialty Start Date End Date Radha Mckeon MD [address] [place] [address] PCP - General 09/23/10 documented as of this encounter
--- OUTSIDE RECORDS SUMMARY | 2024-07-24 17:20 | XMS_ITS | Encounter Summary ---
Author Organization [facility] [place] [address] Care Team Providers Care Group Sales Coordinator Name Role Phone Radha Mckeon MD Primary Care Provider [phone] Encounter Details Date Type Department Care Team (Late st Contact Info) Description 11/29/2023 11:40 AM EST - 11/29/2023 1:00 PM EST Surgery [place] [address] Jovan Duong MD [facility] [place] [address] TENDON SHEATH INCISION (TRIGGER FINGER) (WRVU 3.11) Social History Tobacco Use Types Packs/Day Years [...] Sign Reading Time Taken Comments Blood Pressure 155/81 11/29/2023 11:00 AM EST Pulse 63 11/29/2023 11:00 AM EST Temperature 36.2 ??C (97.2 ??F) 11/29/2023 11:[address] Respiratory Rate 16 11/29/2023 11:00 AM EST Oxygen Saturation 99% 11/29/2023 11:00 AM EST Inhaled Oxygen Concentration - - Weight 73.5 kg (162 lb) 11/29/2023 11:00 AM EST Height 180.3 cm (5' 11) 11/29/2023 11:00 AM EST Body Mass Index 22.59 11/29/2023 11:00 AM EST documented in this encounter Discharge Instructions * Discharge Instructions* Janeen Braden RN - 11/29/2023 10:58 AM EST At 11:00 am you received 975 mg of acetaminophen- Your next dose should not be taken before 8 hourshave passed or as advised by your provider. Next dose not before 7:00pm. You should not take more than a total of 3000 mg of acetaminophen in a 24 hour period. General Anesthesia Discharge Instructions Go home and rest. You may be sleepy for several hours. Take it easy as sudden position changes may cause nausea and/or dizziness. Use caution on stairs. Follow a light to regular diet as tolerated today. If nausea occurs, start with clear liquids, and progress slowly to a regular diet. Do not drive, operate machinery, drink alcoholic beverages or make any legal decisions after havinggeneral anesthesia. The medications given change your reaction time and alter your judgement. IV site -- slight redness is normal, you can use warm compresses. If tenderness and redness increases or foul drainage occurs, please contact your M.D. Patients who have had endotracheal tubes/LMA (tubes used by the anesthesia staff to ensure a safe airway during your operation) may have a sore throat. This is normal and cold liquids or soothing lozenges will help ease this discomfort. Narcotic pain medications can cause constipation, please ask the surgeons office what they recommend for prevention of this. Some non-pharmaceutical means of constipation prevention include increasing intake of fluids, eating more fruits and vegetables as well as fruit juices. If you are uncomfortable and/or unable to urinate within 8 hours of discharge and it is before 5 pm, call your physician. If it is after 5pm go to the closest emergency room or call the hospital seed core operator at [phone] and ask for physician call or contact centre operator covering for your physician. Questions or problems after 5pm or on a weekend: Call the [facility] seed core operator at and ask for the physician call or contact centre operator covering for your doctor. * Patient Instructions* Ashley Romero MD - 11/29/2023 1:11 PM EST Orthopaedic Surgery Discharge Instructions Activity: Your weight-bearing status is - partial weight bearing of the left upper extremity. Anticoagulation: You may resume your xarelto at your next daily dose Diet: Resume your usual diet but increase your intake of fluids and fiber while you are on narcoticpain meds to prevent constipation. Driving: None until you are cleared to do so by your Orthopedic surgeon. You should not drive whileyou are on narcotic pain meds as they can affect your judgment and reaction time. Call your surgeonwith any questions/concerns. Medications: Some swelling is expected after surgery. Ice and elevation are the best remedies to reduce swellingand pain. Keep your extremity properly elevated above the level of the heart i.e., fingers above palm, palm above the wrist, wrist above the elbow. Use pillows to increase elevation. Intermittently apply ice to the outside of the dressing for 20 minutes 6-8 times a day. You will want to ice and elevate for 5-7 days after surgery or as long as it hurts. We recommend 1,000 mg of Tylenol (acetaminophen) every 6-8 hours for the next 7- 10 days. You may take up to but should not exceed 4,000 mg daily. This recommendation is in the setting of a healthy liver. If you are concerned about the health of your liver or have other questions, please discuss with your primary care physician. Ice and elevation Some swelling is expected after surgery. Ice and elevation are the best remedies to reduce swellingand pain. Keep your operative extremity properly elevated above the level of the heart You may use pillows to increase elevation. Intermittently apply ice to the outside of the dressing for 20 minutes 6-8 times a day. You will want to ice and elevate for 5-7 days after surgery or as long as it hurts. Dressing / Wound: Your incision was closed with sutures or zo. These will be removed at your orthopaedic follow up appointment. Please keep the sutures or zo covered with soft sterile dressing until removal. Keep your dressing dry- you can remove the dressing after [address] a band aid over it once the original dressing is removed. Misc: Remember that ICE and elevation are very important after surgery to help decrease swelling and control pain. Use ICE for 20-30 minutes at a time and keep your leg elevated as much as possible. Call your doctor ([phone]) if you develop: Fever greater than 100.5 Severe nausea or vomiting Increasing pain that is not controlled by pain medications Increasing redness, swelling, or drainage from incisions Change in sensation FOLLOW-UP APPOINTMENTS: 1. You will have follow-up appointments at [facility] as indicated below in Future Appointment and Orders. 2. You will need to have x-rays prior to your follow-up appointment listed below. Please come to Radiology, desk 3T, 1 hour BEFORE that appointment for these x-rays. Future Appointments Date Time Provider Department Center 12/06/2023 2:45 PM Joaquin Metzger DPM MH Pod [facility] 12/15/2023 3:00 PM Jovan Duong MD [facility] ORTH 3A [facility] 02/24/2024 1:30 PM LABORATORY, TECH [facility] INF 3K [facility] 02/24/2024 2:30 PM Ellis Guy MD [facility] HEM ONC [facility] If you have questions or concerns: Wednesday through Wednesday, 8 AM - 5 PM, please call Dr. Jovan Duong MD's office at . If it is after 5 PM, the weekend, or holidays, please call and ask to speak with theOrthopedic resident on-call. documented in this encounter Medications at Time of Discharge Medication Sig Dispensed Refills Start Date End Date valACYclovir (Valtrex) 500 mg tablet 500 mg. prn 12/24/2021 Ubrelvy 100 mg tablet 07/09/2023 SUMAtriptan (IMITREX) 20 mg/actuation [place], Non-Aerosol 1 spray by Nasal route as [...] QD 04/23/2020 fluticasone propionate (FLONASE) 50 mcg/actuation [place], Suspension INSTILL 1SPRAY IN EACH NOSTRIL TWICE [...] as of this encounter Progress Notes * Katherine Alford, TORREY - 11/29/2023 1:54 PM EST Discharge instructions and medications reviewed with patient and escort. All questions answered andwritten copy sent home with patient. Patient ambulated to car for discharge accompanied by [facility] staff member. documented in this encounter H&P Notes * sAhley Romero MD - 11/29/2023 12:16 PM EST 24-HOUR UPDATE Malik Machado's history and physical exam have been reviewed and completed. There has been no interval change from that of the pre-operative history and physical exam done within the last 30 days. CV: RRR, no RMG Pulm: LCTAB Will proceed to OR with R middle finger trigger release Ashley Romero MD P. [phone] 11/29/23 12:18 PM documented in this encounter Miscellaneous Notes * Brief Op Note - Jovan Duong MD - 11/29/2023 1:06 PM EST Brief Operative Note Patient Name: Malik Machado : [id number] MR#: [id number] Case Date: 11/29/2023 Surgeon: Surgeon(s) and Role: * Jovan Duong MD - Primary * Ashley Romero MD - Resident - Assisting Preoperative diagnosis: Left Long finger and Thumb trigger digits Postoperative diagnosis: Left Long finger trigger digit Procedure(s) (LRB): TENDON SHEATH INCISION (TRIGGER FINGER) (WRVU 3.11) (Left) Anesthesia: MAC Local Findings: L long finger trigger Complications: N/A Estimated Blood Loss: * No values recorded between 11/29/2023 12:36 PM and 11/29/2023 1:03 PM * Specimens removed during surgery: None Fluids: Intraprocedure Crystalloid Total Intake lactated ringers 500.00 mL Total Intake 500 mL PRBCs: none (See Anesthesia Record/Report for Other Blood Products) Urine Output: (no urine output recorded) Drains: N/A Disposition: awakened from anesthesia, extubated and taken to the recovery room in a stable condition, having suffered no apparent untoward event. Condition: doing well without problems (Please see the Surgical Encounter Summary for any Implant and Specimen details pertinent to this patient.) Surgical Infection Prevention Bundle Used? N/A * Op Note - Jovan Duong MD - 11/29/2023 12:36 PM EST [facility] Operative Note Patient Name: Malik Machado : [id number] MR#: [id number] Case Date: 11/29/2023 Surgeon: Surgeon(s) and Role: * Jovan Duong MD - Primary * Ashley Romero MD - Resident - Assisting Preoperative diagnosis: Left Long finger and Thumb trigger digits Postoperative diagnosis: Left Long finger and Thumb trigger digits Procedure(s) (LRB): TENDON SHEATH INCISION (TRIGGER FINGER) (WRVU 3.11) (Left) Anesthesia: MAC Estimated Blood Loss: Specimens removed during surgery: None Drains: * No LDAs found * Surgical Closure: Primary Closure - skin incision is completely closed without any wires, hammad, drains or other devices Disposition: awakened from anesthesia, extubated and taken to the recovery room in a stable condition, having suffered no apparent untoward event. Condition: doing well without problems (Please see the Surgical Encounter Summary for any Implant and Specimen details pertinent to this patient.) Operative Indication: The patient is a 73yoM with triggering and locking at the A1 kayla level of Left Long finger. It has been refractory to conservative treatment including observation, deferred steroid injection in this finger this time. He was brought to the operating room for A1 kayla release. He had no symptoms of pain or catching in either thumb in the preop area, and stated he felt those symptoms improved and he defers any injection to thumbs at this time. We discussed wide awake procedure, he preferred sedation to start. Procedure: The patient was met in the pre-operative holding area where the appropriate site was marked, 24 hour update completed, and the pre-operative checklist completed. Informed consent was yet again reviewed. The patient was then brought to the operating room on a stretcher where the above anesthetic wasadministered. A clinical time-out was held confirming the correct patient name, MRN, , planned procedure, site, antibiotic if indicated, DVT prophylaxis, and outline of any surgical concerns. All in attendance were in agreement to proceed. The operative extremity was prepped and draped in normal sterile fashion. Local anesthetic was administered with 1:1 of 1% lidocaine and 0.25% marcaine plain, and bicarb, approximately 10cc. An Esmarch was used to exsanguinate the arm and used as a forearm tourniquet briefly. A 1.5cm longitudinal incision was made overlying the A1 kayla of the Left Long finger. Subcutaneous spreading was performed in the palmar midline over the flexor sheath at the A1 kayla level. Greatcare was taken throughout this procedure to avoid injury to the digital neurovascular bundles. The A1 kayla was exposed. It was sharply transected over its entire course under direct vision with tenotomy scissors and 15 blade. Tourniquet was released with no brisk bleeding. The FDP and FDS tendons were brought into the incision site. Synovium was not debrided from the flexor tendons. The site was now copiously irrigated. The patient was asked to move the operative digit and could do so freely without triggering or locking. The incision site was copiously irrigated. The skin was closed with 4-0 nylon suture. A sterile soft dressing was applied with xeroform, gauze, and loose coban wrap. He was transferred to the recovery room in stable condition. Estimated blood loss was minimal. He tolerated the procedure well without apparent complications. Post-op: ROMAT all digits in dresing Soft dressing removal POD 7, then can cover with a bandaid until followup. Tylenol OTC for pain. Ice as needed No heavy lifting over 4 pounds until followup with operative hand. Follow up: 2 weeks, no Xray prior, plan suture removal if indicated Attestation: Case Date: 11/29/2023 I was present and I participated during the entire procedure. Jovan Duong MD, MPH Pediatric Orthopaedics Hand & Upper Extremity Surgeon [facility] 11/29/2023 documented in this encounter Plan of Treatment Upcoming Encounters Date Type Department Care Team (Late st Contact Info) Description 08/18/2024 11:00 AM EDT Hospital Encounter [place] [address] Arrived 02/22/2025 1:30 PM EDT Appointment Hematology [place] [address] 02/22/2025 2:30 PM EDT Office Visit Hematology [place] [phone] Ellis Childers MD [facility] [address] [place] [address] Felicita Landa APRN [facility] [address] [place] [address] documented as of this encounter Procedures Procedure Name Priority Date/Time Associated Diagnosis Comments Incise Finger Tendon Sheath (43488) 11/29/2023 12:20 PM EST Trigger finger, left middle finger TENDON SHEATH INCISION (TRIGGER FINGER) Routine 11/29/2023 10:55 AM EST Trigger finger, left middle finger documented in this encounter Visit Diagnoses Diagnosis Trigger finger, left middle finger Trigger finger, left middle finger documented in this encounter Administered Medications Inactive Administered Medications - up to 3 most recent administrations Medication Order MAR Action Action Date Dose Rate Site acetaminophen (Tylenol) tablet 975 mg 975 mg, Oral, ONCE, 1 dose, On Wed11/29/23 at 0745, Maximum dose of acetaminophen is 4,000 mg from all sources in 24 hours. When ordered for pain, acetaminophen should be given even when other ordered pain medications are indicated. , Routine Given 11/29/2023 11:06 AM EST 975 mg BUpivacaine (pf) (Marcaine) (2.5 mg/mL) 0.25% injection PRN, Starting on Wed11/29/23 at 1236, Until Wed11/29/23 at 1601, Intra-Operative (Intra-Procedure), Routine Given 11/29/2023 12:36 PM EST 5 mLs Left Hand lidocaine (Xylocaine) 1% (10 mg/mL) injection PRN, Starting on Wed11/29/23 at 1236, Until Wed11/29/23 at 1601, Intra-Operative (Intra-Procedure), Routine Given 11/29/2023 12:36 PM EST 5 mLs Left Hand sodium bicarbonate 8.4 % (1 meq/ml) IV solution PRN, Starting on Wed11/29/23 at 1236, Until Wed11/29/23 at 1601, Intra-Operative (Intra-Procedure), Routine Given 11/29/2023 12:36 PM EST 73.5 mEq Left Hand documented in this encounter Active and Recently Administered Medications Times are shown in EST. Scheduled Medication Order 11/27/2023 11/28/2023 11/29/2023 acetaminophen (Tylenol) tablet 975 mg (COMPLETED) 975 mg, Oral, ONCE, 1 dose, On Wed11/29/23 at 0745, Maximum dose of acetaminophen is 4,000 mg from all sources in 24 hours. When ordered for pain, acetaminophen should be given even when other ordered pain medications are indicated. , Routine 1106 (Given - Provid er: Janeen Braden RN) PRN Medication Order 11/27/2023 11/28/2023 11/29/2023 BUpivacaine (pf) (Marcaine) (2.5 mg/mL) 0.25% injection (CANCELED) PRN, Starting on Wed11/29/23 at 1236, Until Wed11/29/23 at 1601, Intra-Operative (Intra-Procedure), Routine 1236 (Given - Provid er: Jovan Duong MD - Comment: mixed with 5ml of 1% Lidocaine plain and 1ml of Sodium Bicarbonate 8.4% (1mEq/ ml)) lidocaine (Xylocaine) 1% (10 mg/mL) injection (CANCELED) PRN, Starting on Wed11/29/23 at 1236, Until Wed11/29/23 at 1601, Intra-Operative (Intra-Procedure), Routine 1236 (Given - Provid er: Jovan Duong MD) sodium bicarbonate 8.4 % (1 meq/ml) IV solution (CANCELED) PRN, Starting on Wed11/29/23 at 1236, Until Wed11/29/23 at 1601, Intra-Operative (Intra-Procedure), Routine 1236 (Given - Provid er: Jovan Duong MD - Comment: USED 1ML ONLY) documented in this encounter Care Teams Group Sales Coordinator Relationship Specialty Start Date End Date Radha Mckeon MD [address] [place] [address] PCP - General 09/23/10 documented as of this encounter
--- OUTSIDE RECORDS SUMMARY | 2024-07-24 17:20 | XMS_ITS | Encounter Summary ---
Author Organization [facility] [place] [address] Care Team Providers Care Almond Sorter Name Role Phone Radha Mckeon MD Primary Care Provider [phone] Reason for Referral * Occupational Therapy (Routine) - Closed Specialty Diagnoses / Procedures Referred By Becki guillory Referred To Contact Occupational Therapy Diagnoses Trigger finger, left middle finger Jovan Alexandra MD [facility] [place] [address] [facility] [address] [place] [address] Referral ID Status Reason Start Date Expiration Date V isits Requested Visits Authorized [id number] Closed Evaluate and Treat 08/03/2023 08/02/2024 12 12 Reason for Visit * Reason Comments Establish Care LEFT MIDDLE FINGER, TRIGGER FINGER * Consultation (Routine) - Closed Specialty Diagnoses / Procedures Referred By Becki guillory Referred To Contact Orthopaedics Diagnoses Trigger middle finger of left hand Radha Mckeon MD [address] [place] [address] [facility] [address] [place] [address] Referral ID Status Reason Start Date Expiration Date V isits Requested Visits Authorized [id number] Closed Consult, Test & Treat PCP Updated and/or Approved 06/18/2023 06/17/2024 12 12 Encounter Details Date Type Department Care Team (Late st Contact Info) Description 08/03/2023 1:00 PM EDT [place] [address] Jovan Alexandra MD [facility] [place] [address] Trigger finger, left middle finger [...] place to sleep or slept in a snf (including now)? No 04/01/2022 Sex and Gender [...] - Inhaled Oxygen Concentration - - Weight 70.8 kg (156 lb) 08/03/2023 1:07 PM EDT Height 180.3 cm (5' 11) 08/03/2023 1:07 PM EDT Body Mass Index 21.76 08/03/2023 1:07 PM EDT documented in this encounter Progress Notes * Pk Blake LPN - 08/03/2023 1:00 PM EDT Pre-Operative Visit Note This note is recorded by Pk Blake LPN acting as a scribe for Dr. ALEXANDRA. H&P: Day of Surgery Subjective: Malik is here today for a pre-operative visit for his left LONG TRIGGER FINGER. Patient denies recent illness, fever, chills, night sweats. Malik has not noticed any skin changes, rash, abrasions or opens wounds on the planned surgical extremity. Personal or family hx of blood clot or bleeding disorder?: no Problems with pain medication in the past?: no History of problems with anesthetics: no Discussed practicing ADL???s with non-operative arm. We are operating on the left Pt is right hand dominant Does pt have use of contralateral extremity, such that they can perform ADLs? Yes Is pt able to rise from chair without use of operative arm? Yes Lives alone? No Pt weight: 156 # (if near or over 350#, pt must be weighed on scale and surgeon notified) Objective: No data found. Malik is alert and oriented x3, in no acute distress Physical exam is essentially unchanged and documented in prior clinic notes There is no skin breakdown on the operative side Pain Management: 05/19/2022 6:06 AM 01/05/2022 2:00 PM 11/09/2019 11:00 AM Opioid PDMP [place] PDMP Query Date 05/20/2022 01/05/2022 11/09/2019 Comment Last oxy rx 01/20/22 01/05/22 1 yr PDMP query performed; noted two oxycodone scripts for 15 mgtablets as ordered by his PCP. Pt reports chronic sporadic (not daily) opioid use for numerous paincomplaints; longstanding pain source is his low back which will not be addressed with this surgery. [place] PDMP Query Date 11/09/2019 [place] PDMP Query Date 11/09/2019 Malik Machado will not be prescribed a prescription opioid for the treatment of acute post-operative pain related to Orthopedic surgery. The patient was advised that they are able to take non-opioid medications for pain control in addition to non-pharmacological treatment such as ice, elevation and activity modification. The Acute Opioid Therapy Informed Consent form has been completed and sent to medical records for scanning to chart. Plan: The surgical consent was reviewed with Malik. The risks and benefits of the procedure were discussedwith the patient. We discussed: bleeding, infection, blood clots, scar formation, persistent pain, stiffness, bursitis, nerve palsy, compartment syndrome, skin numbness, need for further surgery, anesthetic risk and/or medical complications. The need for active participation in the post-op recoveryphase was also discussed. Malik verbalized understanding and the surgical consent was signed by Valentin ALEXANDRA . Malik was given a bottle of Hibiclens to be used in the shower the night before and the morning of their procedure. Showering instructions were reviewed, handout given. General post-op guidelines discussed including hydration, nutrition, constipation, dressing changes, and management of post-operative pain Written material given: Hibiclens washing instructions and soap, Telephone list, and signs and symptoms stoplight sheet Questions solicited and answered. He knows to call with any additional questions or concerns. Malik was advised to read the post-op instructions from day of surgery for specific recommendations and restrictions post-operatively. * Umer Mukherjee - 08/03/2023 1:00 PM EDT Orthopaedic Clinic Progress Note DATE OF VISIT: 08/03/23 CHIEF COMPLAINT: Chief Complaint Patient presents with Establish Care LEFT MIDDLE FINGER, TRIGGER FINGER HPI: Malik Machado is a 73 y.o. male patient who presents to the orthopaedic clinic for a follow-up appointment. He previously had a trigger finger of the right 3rd digit which was treated with corticosteroid injection followed by trigger finger release on 05/15/[address] Alexandra. He is doing well from that procedure. He now presents with pain at the level of the A1 kayla of the left 3rd digitand right thumb for several months. He has catching and locking of the left 3rd digit requiring manual release by the patient. He also notes radial pain of the left 4th digit. Daily symptoms, worst in the morning. Has not tried steroid injections, or OT. Has failed OTC medications. MEDICATIONS: Current Outpatient Medications: Ubrelvy 100 mg tablet, , Disp: , Rfl: carBAMazepine (TEGretol) 200 mg tablet, Take 100 mg by mouth daily., Disp: , Rfl: SUMAtriptan (IMITREX) 20 mg/actuation [place], Non-Aerosol, 1 spray by Nasal route as needed., Disp: , Rfl: multivitamin (THERAGRAN) Tablet, Take 1 tablet by mouth daily., Disp: , Rfl: finasteride (Proscar) 5 mg tablet, Take 5 mg by mouth daily., Disp: , Rfl: benzonatate (Tessalon) 200 mg capsule, Take 200 mg by mouth 3 times daily as needed for Cough., Disp: , Rfl: acetaminophen (Tylenol) 500 mg tablet, as needed., Disp: , Rfl: metoprolol succinate XL (Toprol-XL) 100 mg ER 24 hr tablet, Take 1 tablet by mouth daily., Disp: 90tablet, Rfl: 3 magnesium hydroxide (MILK OF MAGNESIA ORAL), Take by mouth as needed., Disp: , Rfl: Xarelto 20 mg Tablet, Take 1 tablet by mouth daily., Disp: , Rfl: oxyCODONE (Roxicodone) 5 mg Tablet, Take 1-2 tablets by mouth every 4 hours as needed for Pain. (Patient taking differently: Take 5-10 mg by mouth as needed for Pain.), Disp: 42 tablet, Rfl: 0 zonisamide (ZONEGRAN) 50 mg Capsule, TAKE 1 CAPSULE BY MOUTH EVERY NIGHT AT BEDTIME, Disp: , Rfl: Emgality Pen 120 mg/mL Pen Injector, INJECT 1 PEN SUBCUTANEOUSLY ONCE MONTHLY, Disp: , Rfl: pregabalin (LYRICA) 100 mg Capsule, Take 1 capsule by mouth 2 times daily., Disp: , Rfl: lidocaine-prilocaine (EMLA) Cream, as needed., Disp: , Rfl: polyethylene glycoL (Miralax) 17 gram Powder in Packet, Take 17 g by mouth as needed., Disp: , Rfl: senna-docusate (Pericolace) 8.6-50 mg Tablet, Take 2 tablets by mouth as needed., Disp: , Rfl: acyclovir (ZOVIRAX) 200 mg Capsule, 1 capsule as needed. Indications: prn, Disp: , Rfl: diclofenac (VOLTAREN) 1 % Gel, Apply topically Once daily as needed., Disp: , Rfl: tamsulosin (Flomax) 0.4 mg Capsule, TK 1 C PO QD, Disp: , Rfl: fluticasone propionate (FLONASE) 50 mcg/actuation [place], Suspension, INSTILL 1SPRAY IN EACH NOSTRILTWICE A DAY, Disp: , Rfl: lamoTRIgine (LAMICTAL) 25 mg Tablet, Take 50 mg by mouth 2 times daily., Disp: , Rfl: SUMAtriptan (IMITREX) 100 mg Tablet, Take 100 mg by mouth as needed for Migraine. Initial dose: 25 mg, 50 mg, or 100 mg (take with fluids). May repeat dose after 2 hours. Max daily dose: 200 mg, Disp: , Rfl: Triamcinolone Acetonide 0.025 % Lotion, Apply topically as needed., Disp: , Rfl: BOTOX 200 unit Recon Soln, Inject 200 Units as directed Q 3 Months., Disp: , Rfl: verapamil (CALAN-SR) 120 mg Tablet Sustained Release, Take 1 tablet by mouth daily. (Patient takingdifferently: Take 120 mg by mouth nightly.), Disp: 90 tablet, Rfl: 3 levothyroxine (Synthroid) 100 mcg Tablet, Take 100 mcg by mouth daily., Disp: , Rfl: baclofen (LIORESAL) 10 mg tablet, Take 10 mg by mouth nightly as needed., Disp: , Rfl: simvastatin (ZOCOR) 10 mg tablet, Take 10 mg by mouth nightly., Disp: , Rfl: ALLERGIES: Allergies Allergen Reactions Zolpidem Other reaction(s): bad [...] Flecainide Other (See Comments) Adverse effect caused NE and QRS prolongation Other reaction(s): Other (See Comments) Adverse effect caused NE and QRS prolongation Other reaction(s): Other (See Comment) PHYSICAL EXAM: Temp: -- Heart Rate: -- BP: -- Body mass index is 21.76 kg/m??. No acute distress Affect within normal limits for age Alert and oriented Speech clear and intact, appropriate for age Head atraumatic Respirations unlabored Left long finger examined: Tenderness at the level of the A1 kayla of the left 3rd digit. No palpable nodules. Reproducible pain with flexion and extension of the left 3rd digit. He is seen to be triggering in the office today, with pain. The pain is not reproducible with motion of the right thumb. Right thumb with tenderness A1 kayla. FDP and FDS intact to all digits Sensation intact to all digits ASSESSMENT and PLAN: This is a 73 y.o. male seen in follow-up for 2 new acute problems: Grade III trigger finger of his left 3rd digit and Grade I trigger finger of the right thumb. We discussed treatment options for his acute presentation. He has had multiple steroid injections in different areas of his body never with long-term relief. For his previous right long finger he hastried steroid injection which failed and went on the surgery. At this point he requests proceeding straight to surgery given his good outcomes with surgery in the past and difficulties with steroids. We discussed hand therapy and [id number] medications. He did request a nighttime extension splint as he has had previously for interim relief. We discussed risks and benefits of surgery, risks including but not limited to bleeding, infection,damage to nerves vessels and tendons, stiffness, recurrence, need for additional surgeries, incomplete relief. PLAN: We discussed the patients options for corticosteroid injections as well as trigger finger release including risks and benefits. The patient would prefer to move forward with the TFR of his sanj9oy digit given that he has not had previous success with corticosteroid injections. We will schedule the patient for TFR of the left third digit with potential corticosteroid injection of the right thumb if his symptoms progress in the right thumb by the time of surgery. OT will also evaluate the patient for a night time extension brace for left third digit. Surgical scheduling: Left trigger finger release long finger, possible steroid injection right thumb if worsening. Prefers asleep for surgery Antibiotics for surgery Soft dressings Possible hand therapy after surgery. All questions were answered, and the patient was satisfied with the discussion. They know to call sooner with any questions or concerns. Follow-up: Plan for OR for left third digit TFR with or without right thumb corticosteroid injection. I have seen and examined the above named patient, reviewed and edited the contents of the note supplied by the resident or physician workforce specialist with whom I saw the patient, and reviewed our findings and recommendations with the patient in person. Jovan Alexandra MD, MPH Department of Orthopaedic Surgery Pediatric Orthopaedic & Hand Surgeon documented in this encounter Plan of Treatment Upcoming Encounters Date Type Department Care Team (Late st Contact Info) Description 08/18/2024 11:00 AM EDT Hospital Encounter Non[place] [address] Arrived 02/22/2025 1:30 PM EDT Appointment Hematology and Oncology at [place] [phone] 02/22/2025 2:30 PM EDT Office Visit [place] [phone] Ellis Childers MD [facility] [place] [address] Felicita Landa APRN [facility] [place] [address] Scheduled Referrals Name Type Priority Associated Diagnoses Order Schedule Referral to Occupational Therapy Outpatient Referral Routine Trigger finger, left middle finger Ordered: 08/03/2023 documented as of this encounter Visit Diagnoses Diagnosis Trigger finger, left middle finger documented in this encounter Care Teams Almond Sorter Relationship Specialty Start Date End Date Radha Mckeon MD [address] [place] [address] PCP - General 09/23/10 documented as of this encounter
--- OUTSIDE RECORDS SUMMARY | 2024-07-24 17:20 | XMS_ITS | Encounter Summary ---
Author Organization [place] [address] Care Team Providers Care Food Service Order Clerk Name Role Phone Radha Mckeon MD Primary Care Provider [phone] Reason for Visit * Reason Onset Date Comments Pre Procedure Call 08/30/2023 Encounter Details Date Type Department Care Team (Late st Contact Info) Description 08/30/2023 Telephone [place] [phone] Jovan Duong MD [facility] [place] [address] Pre Procedure Call (/) Social History Tobacco Use Types Packs/Day Years [...] in a halfway (including now)? No 04/01/2022 Sex and Gender Information Value Date Recorded Sex Assigned at Not on file Gender Identity Not on file Sexual Orientation Not on file documented as of this encounter Miscellaneous Notes * Telephone Encounter - Christina Gaines - 08/30/2023 9:02 AM EDT Returned patients call. Left our direct number to call us back at his convenience. documented in this encounter Plan of Treatment Upcoming Encounters Date Type Department Care Team (Late st Contact Info) Description 08/18/2024 11:00 AM EDT Hospital Encounter Non-[place] [phone] Arrived 02/22/2025 1:30 PM EDT Appointment Hematology [place] [phone] 02/22/2025 2:30 PM EDT Office Visit [place]ematology [place] [phone] Ellis Childers MD [facility] [address] HEMATOLOGY [place] [address] Felicita Landa APRN [facility] [address] HEMATOLOGY [place] [address] documented as of this encounter Visit Diagnoses Not on filedocumented in this encounter Care Teams Food Service Order Clerk Relationship Specialty Start Date End Date Radha Mckeon MD [address] [place] [address] PCP - General 09/23/10 documented as of this encounter
--- OUTSIDE RECORDS SUMMARY | 2024-07-24 17:20 | XMS_ITS | Encounter Summary ---
Author Organization [facility] [address] Care Team Providers Care Special Systems Technician Name Role Phone Radha Mckeon MD Primary Care Provider [phone] Encounter Details Date Type Department Care Team (Latest Contact Info) Description 08/26/2023 Travel Social History Tobacco Use Types Packs/Day [...] in a correction (including now)? No 04/01/2022 Sex and Gender Information Value Date Recorded Sex Assigned at Not on file Gender Identity Not on file Sexual Orientation Not on file documented as of this encounter Plan of Treatment Upcoming Encounters Date Type Department Care Team (Late st Contact Info) Description 08/18/2024 11:00 AM EDT Hospital Encounter Non-[place] [address] Arrived 02/22/2025 1:30 PM EDT Appointment Hematology and Oncology at [place] [address] 02/22/2025 2:30 PM EDT Office Visit Hematology and Oncology at [place] [address] [facility] [address] HEMATOLOGY [place] [address] [facility] [address] HEMATOLOGY [place] [address] documented as of this encounter Visit Diagnoses Not on filedocumented in this encounter Care Teams Special Systems Technician Relationship Specialty Start Date End Date Radha Mckeon MD [address] [place] [address] PCP - General 09/23/10 documented as of this encounter
--- OUTSIDE RECORDS SUMMARY | 2024-07-24 17:20 | XMS_ITS | Encounter Summary ---
Author Organization [facility] [place] [address] Care Team Providers Care Commutator Operator Name Role Phone Radha Mckeon MD Primary Care Provider [phone] Encounter Details Date Type Department Care Team (Latest Contact Info) Description 11/15/2023 Travel Social History Tobacco Use Types Packs/Day [...] AM EDT Hospital Encounter Non-[place] [address] Arrived 02/22/2025 1:30 PM EDT Appointment Hematology and Oncology at [place] [address] 02/22/2025 2:30 PM EDT Office Visit Hematology and Oncology at [place] [address] Ellis Childers MD [facility] DR HEMATOLOGY [place] [address] Felicita Landa APRN [facility] DR HEMATOLOGY [place] [address] documented as of this encounter Visit Diagnoses Not on filedocumented in this encounter Care Teams Commutator Operator Relationship Specialty Start Date End Date Radha Mckeon MD [address] [place] [address] PCP - General 09/23/10 documented as of this encounter
--- OUTSIDE RECORDS SUMMARY | 2024-07-24 17:20 | XMS_ITS | Encounter Summary ---
Author Organization [facility] [place] [address] Care Team Providers Care Department Supervisor Name Role Phone Radha Mckeon MD Primary Care Provider [phone] Encounter Details Date Type Department Care Team (Late st Contact Info) Description 11/26/2023 Telephone [place] [address] Jia Warren Social History Tobacco [...] Telephone Encounter - Jia Warren - 12/06/2023 8:58 AM EST LVM on home and cell regarding imaging scheduled today in coordination with another appt. Future Appointments Date Time Provider Department Center 12/06/2023 2:45 PM Joaquin Metzger DPM MH Pod [facility] 12/06/2023 3:30 PM [facility] DX ROOM 2 Xray [facility] Scottie Farias in MRI is checking on status of sedation and will call me back to schedule. * Telephone Encounter - Jia Warren - 11/30/2023 10:46 AM ESTSummary: Request for orders Received call from Chrissy in Radiology advising we need to have a 1 view chest xray ordered to have done prior to the MRI because of the replaced implant. Can we please have orders entered? * Telephone Encounter - Jia Warren - 11/29/2023 11:06 AM EST Spoke with Chrissy, nothing has come back regarding IV sedation at this time. She is sending a follow up email to the anesthesia team requesting review and she is also sending for safety review as the pthad his old loop recorder removed and a new one implanted in 2021. * Telephone Encounter - Jia Warren - 11/26/2023 2:23 PM EST Spoke with pt to schedule MRI He prefers a Wednesday, Wednesday or afternoon. Pt advised he was sure the last MRI he had was IV sedated, Esmer is sending for review as she is not seeing prior sedation or failed PO. documented in this encounter Plan of Treatment Upcoming Encounters Date Type Department Care Team (Late st Contact Info) Description 08/18/2024 11:00 AM EDT Hospital Encounter Non-Invasive Cardiology Lab [place] [address] Arrived 02/22/2025 1:30 PM EDT Appointment Hematology and Oncology at [place] [address] 02/22/2025 2:30 PM EDT Office Visit Hematology and Oncology at [place] [address] Ellis Childers MD [facility] DR [place] [address] Felicita Landa APRN [facility] [address] [place] [address] documented as of this encounter Visit Diagnoses Not on filedocumented in this encounter Care Teams Department Supervisor Relationship Specialty Start Date End Date Radha Mckeon MD [address] [place] [address] PCP - General 09/23/10 documented as of this encounter
--- OUTSIDE RECORDS SUMMARY | 2024-07-24 17:20 | XMS_ITS | Encounter Summary ---
Author Organization [facility], [facility] [address] Care Team Providers Care Recreational Sports Director Name Role Phone Radha Mckeon MD Primary Care Provider [phone] Encounter Details Date Type Department Care Team (Latest Contact Info) Description 08/26/2023 2:30 PM EDT - 08/26/2023 11:59 PM EDT Hospital Encounter [place] [address] Thrombocytopenia Discharge Disposition: Home Social History Tobacco [...] mg tablet 07/09/2023 SUMAtriptan (IMITREX) 20 mg/actuation [place], Non-Aerosol 1 spray by Nasal route as [...] QD 04/23/2020 fluticasone propionate (FLONASE) 50 mcg/actuation [place], Suspension INSTILL 1SPRAY IN EACH NOSTRIL TWICE [...] AM EDT Hospital Encounter Non-[place] [address] Arrived 02/22/2025 1:30 PM EDT Appointment H[place]ology [place] [address] 02/22/2025 2:30 PM EDT Office Visit Hematology [place] [address] Ellis Childers MD [facility] DR HEMATOLOGY [place] [address] Felicita Landa APRN [facility] HEMATOLOGY [place] [address] documented as of this encounter Procedures Procedure Name Priority Date/Time Associated Diagnosis Comments HEMOGRAM Routine 08/26/2023 3:02 PM EDT Thrombocytopenia DIFFERENTIAL, AUTOMATED Routine 08/26/2023 3:02 PM EDT Thrombocytopenia CBC (WITH DIFF) Routine 08/26/2023 3:02 PM EDT Thrombocytopenia documented in this encounter Results * (ABNORMAL) Differential, Automated (08/26/2023 3:02 PM EDT) Neutrophil % 70.3 % [facility] Neutrophil Absolute 4.28 1.70 - 6.10 x10(3)/mc L [facility] Lymph % 12.6 % [facility] Lymphocytes Abs 0.8(L) 0.9 - 3.2 x10(3)/mc L [facility] Monocyte % 9.7 % [facility] Monocyte Abs 0.6 0.3 - 0.9 x10(3)/mc L [facility] Eos % 6.1 % [facility] Eosinophils Abs 0.4 0.0 - 0.4 x10(3)/mc L [facility] Basophil % 1.0 % [facility] Baso Absolute 0.1 0.0 - 0.1 x10(3)/mc L [facility] Immature Gran % 0.30 % [facility] Comment: Immature granulocytes(IG's)percentage and absolute count will include metamyelocytes, myelocytes, and promyelocytes. Blood smears from CBCs yielding IG's will be scanned manually for concordance. If this scan disagrees with the automated IG or if promyelocytes are noted, a manual differential will be performed. Immature Gran Absolute 0.02 0.00 - 0.04 x10(3)/mc L [facility] Blood 08/26/2023 3:02 PM EDT 08/26/2023 3:09 PM EDT Narrative Resulting Agency Comment Spec In Lab Felicita Cooper [employer]CR[employer] [facility]AT[facility] ORD ERABLES [facility] [place] [address] * (ABNORMAL) Hemogram (08/26/2023 3:02 PM EDT) White Blood Cell 6.1 4.0 - 9.5 x10(3)/[facility] Red Blood Cell 4.81 4.58 - 5.54 x10(6)/[facility] Hemoglobin 15.1 13.7 - 16.5 g/dL [facility] Hematocrit 44.3 40.5 - 48.5 % [facility] Mean Cell Volume 92.1 82.9 - 93.1 fL [facility] Mean Cell Hemoglobin 31.4 27.5 - 32.1 pg [facility] Mean Cell Hemoglobin Concentration 34.1 32.0 - 35.7 g/dL [facility] Platelet 84(L) 145 - 357 x10(3)/[facility] RDW Standard Deviation 41.4 36.0 - 45.0 fL [facility] RDW coefficient of variation 12.2 11.4 - 13.8 % [facility] Mean Platelet Volume 10.8 7.6 - 12.9 fL [facility] NRBC% auto 0.0 % [facility] NRBC Absolute 0.000 0.000 - 0.000 x10(3)/[facility] Blood 08/26/2023 3:02 PM EDT 08/26/2023 3:09 PM EDT Narrative Resulting Agency Comment Spec In Lab Felicita La Landa [employer] HEMATOLOG[facility] ORD ERABLES [facility] [address] [place] [address] documented in this encounter Visit Diagnoses Diagnosis Thrombocytopenia Thrombocytopenia, unspecified documented in this encounter Care Teams Recreational Sports Director Relationship Specialty Start Date End Date Radha Mckeon MD [address] [place] [address] PCP - General 09/23/10 documented as of this encounter
--- OUTSIDE RECORDS SUMMARY | 2024-07-24 17:20 | XMS_ITS | Encounter Summary ---
Author Organization [facility] [place] [address] Care Team Providers Care Senior Web Services Developer Name Role Phone Radha Mckeon MD Primary Care Provider [phone] Encounter Details Date Type Department Care Team (Latest Contact Info) Description 08/03/2023 Travel Social History Tobacco Use Types Packs/Day [...] a long term (including now)? No 04/01/2022 Sex and Gender Information Value Date Recorded Sex Assigned at Not on file Gender Identity Not on file Sexual Orientation Not on file documented as of this encounter Plan of Treatment Upcoming Encounters Date Type Department Care Team (Late st Contact Info) Description 08/18/2024 11:00 AM EDT Hospital Encounter Non-[place] [address] Arrived 02/22/2025 1:30 PM EDT Appointment Hematology and Oncology at [place] [address] 02/22/2025 2:30 PM EDT Office Visit Hematology and Oncology at [place] [address] Ellis Childers MD [facility] [place] [address] Felicita Landa APRN [facility] [place] [address] documented as of this encounter Visit Diagnoses Not on filedocumented in this encounter Care Teams Senior Web Services Developer Relationship Specialty Start Date End Date Radha Mckeon MD [address] [place] [address] PCP - General 09/23/10 documented as of this encounter
--- OUTSIDE RECORDS SUMMARY | 2024-07-24 17:20 | XMS_ITS | Encounter Summary ---
Author Organization [facility] [place] [address] Care Team Providers Care Numerical Analysis Group Manager Name Role Phone Radha Mckeon MD Primary Care Provider [phone] Encounter Details Date Type Department Care Team (Latest Contact Info) Description 11/29/2023 10:25 AM EST - 11/29/2023 1:54 PM [facility] Hospital Encounter Out[place] [address] Jovan Duong MD [facility] [place] [address] Trigger finger, left middle finger Discharge Disposition: Home Social History Tobacco Use [...] Sign Reading Time Taken Comments Blood Pressure 151/81 11/29/2023 1:30 PM EST Pulse 60 11/29/2023 1:30 PM EST Temperature 36.3 ??C (97.3 ??F) 11/29/2023 1:07 PM ES T Respiratory Rate 16 11/29/2023 1:07 PM EST Oxygen Saturation 98% 11/29/2023 1:30 PM EST Inhaled Oxygen Concentration - - [...] closest emergency room or call the hospital pusher operator at [phone] and ask for physician protection consultant covering for your physician. Questions or problems after 5pm or on a weekend: Call the [facility] pusher operator at and ask for the physician protection consultant covering for your doctor. * Patient Instructions* [...] as much as possible. Call your doctor ([phone]) if you develop: Fever greater than 100.5 Severe nausea or vomiting Increasing pain that is not controlled by pain medications Increasing redness, swelling, or drainage from incisions Change in sensation FOLLOW-UP APPOINTMENTS: 1. You will have follow-up appointments at [facility] as indicated below in Future Appointment and Orders. 2. You will need to have x-rays prior to your follow-up appointment listed below. Please come to Radiology, desk 3T, 1 hour BEFORE that appointment for these x-rays. Future Appointments Date Time Provider Department Center 12/06/2023 2:45 PM Joaquin Metzger DPM MH Pod [facility] 12/15/2023 3:00 PM Jovan Duong MD [facility] ORTH 3A [facility] 02/24/2024 1:30 PM LABORATORY, TECH [facility] INF 3K [facility] 02/24/2024 2:30 PM Ellis Guy MD [facility] HEM ONC [facility] If you have questions or concerns: Wednesday [...] mg tablet 07/09/2023 SUMAtriptan (IMITREX) 20 mg/actuation [place], Non-Aerosol 1 spray by Nasal route as [...] QD 04/23/2020 fluticasone propionate (FLONASE) 50 mcg/actuation [place], Suspension INSTILL 1SPRAY IN EACH NOSTRIL TWICE [...] of this encounter Progress Notes * Katherine Alford RN - 11/29/2023 1:54 PM EST Discharge instructions and medications reviewed with patient and escort. All questions answered andwritten copy sent home with patient. Patient ambulated to car for discharge accompanied by [facility] staff member. documented in this encounter H&P Notes * Ashley Romero MD - 11/29/2023 12:16 PM EST [...] Operative Note Patient Name: Malik Machado : [id number] MR#: [id number] Case Date: 11/29/2023 Surgeon: Surgeon(s) and Role: [...] Duong MD - 11/29/2023 12:36 PM EST [facility] Operative Note Patient Name: Malik Machado : [id number] MR#: [id number] Case Date: 11/29/2023 Surgeon: Surgeon(s) and Role: [...] Pediatric Orthopaedics Hand & Upper Extremity Surgeon [facility] [place] 11/29/2023 documented in this encounter Plan of Treatment Upcoming Encounters Date Type Department Care Team (Late st Contact Info) Description 08/18/2024 11:00 AM EDT Hospital Encounter Non-[place] [address] Arrived 02/22/2025 1:30 PM EDT Appointment [place] [address] 02/22/2025 2:30 PM EDT Office Visit [place]ology [place] [address] Ellis Childers MD [facility] [address] HEMATOLOGY [place] [address] Felicita Landa APRN [facility] [address] [place]AT[place]Y [place] [address] documented as of this encounter Procedures Procedure Name Priority Date/Time Associated Diagnosis Comments Incise Finger Tendon Sheath (87700) 11/29/2023 12:20 PM EST Trigger finger, left [...] 975 mg, Oral, ONCE, 1 dose, On 11/29/23 at 0745, Maximum dose of acetaminophen is 4,000 mg from all sources in 24 hours. When ordered for pain, acetaminophen should be given even when other ordered pain medications are indicated. , Routine Given 11/29/2023 11:06 AM EST 975 mg documented in this encounter Active and Recently [...] ONLY) documented in this encounter Care Teams Numerical Analysis Group Manager Relationship Specialty Start Date End Date Radha Mckeon MD [address] [place] [address] PCP - General 09/23/10 documented as of this encounter
--- OUTSIDE RECORDS SUMMARY | 2024-07-24 17:20 | XMS_ITS | Encounter Summary ---
Author Organization [facility] [place] [address] Care Team Providers Care Electrical Tryout Person Name Role Phone Radha Mckeon MD Primary Care Provider [phone] Encounter Details Date Type Department Care Team (Latest Contact Info) Description 07/25/2023 11:00 AM EDT - 07/25/2023 11:59 PM EDT Hospital Encounter Non-[place] [address] Discharge Disposition: Home Social History Tobacco Use [...] mg tablet 07/09/2023 SUMAtriptan (IMITREX) 20 mg/actuation [place], Non-Aerosol 1 spray by Nasal route as [...] QD 04/23/2020 fluticasone propionate (FLONASE) 50 mcg/actuation [place], Suspension INSTILL 1SPRAY IN EACH NOSTRIL TWICE [...] Upcoming Encounters Date Type Department Care Team (Abram rutherford Contact Info) Description 08/18/2024 11:00 AM EDT Hospital Encounter Non-[place]vasive [place] [phone] Arrived 02/22/2025 1:30 PM EDT Appointment Hematology [place] [address] 02/22/2025 2:30 PM EDT Office Visit [place]ematology [place] [address] Ellis Childers MD [facility] DR HEMATOLOGY [place] [address] Felicita Landa APRN [facility] [address] HEMATOLOGY [place] [address] documented as of this encounter Procedures Procedure Name Priority Date/Time Associated Diagnosis Comments PRG ILR INTERROGATION REMOTE UP TO 30 DAYS Routine 07/11/2023 2:07 AM EDT documented in this encounter Results * Cardiac Device Check - Remote (07/11/2023 2:07 AM EDT) Anatomical Region Laterality Modality Other 07/11/2023 2:07 AM EDT Salomón Gan MD IMPLANTABLE CARDIAC DEVICE documented in this encounter Visit Diagnoses Not on filedocumented in this encounter Care Teams Electrical Tryout Person Relationship Specialty Start Date End Date Radha Mckeon MD [address] [place] [address] PCP - General 09/23/10 documented as of this encounter
--- OUTSIDE RECORDS SUMMARY | 2024-07-24 17:20 | XMS_ITS | Encounter Summary ---
Author Organization [facility] [place] [address] Care Team Providers Care Store Operations Manager Name Role Phone Radha Mckeon MD Primary Care Provider [phone] Encounter Details Date Type Department Care Team (Late st Contact Info) Description 11/26/2023 [place] [address] Jia Warren Social History Tobacco [...] health care facility (including now)? No 04/01/2022 Sex and Gender Information Value Date Recorded Sex Assigned at Not on file Gender Identity Not on file Sexual Orientation Not on file documented as of this encounter Miscellaneous Notes * Telephone Encounter - Jia Warren - 11/26/2023 8:28 AM EST LVM for pt requesting a return call to schedule. MRI, safety question need to be completed. documented in this encounter Plan of Treatment Upcoming Encounters Date Type Department Care Team (Late st Contact Info) Description 08/18/2024 11:00 AM EDT Hospital Encounter Non-Invasive Cardiology Lab [place] [phone] Arrived 02/22/2025 1:30 PM EDT Appointment Hematology and Oncology at [place] [address] 02/22/2025 2:30 PM EDT Office Visit Hematology [place] [address] Ellis Childers MD [facility] [address] [place] [address] Felicita Landa APRN [facility] [place] [address] documented as of this encounter Visit Diagnoses Not on filedocumented in this encounter Care Teams Store Operations Manager Relationship Specialty Start Date End Date Radha Mckeon MD [address] [place] [address] PCP - General 09/23/10 documented as of this encounter
--- OUTSIDE RECORDS SUMMARY | 2024-07-24 17:20 | XMS_ITS | Encounter Summary ---
Author Organization [facility] [place] [address] Care Team Providers Care Associate Designer Name Role Phone Radha Mckeon MD Primary Care Provider [phone] Encounter Details Date Type Department Care Team (Latest Contact Info) Description 10/23/2023 11:00 AM EST - 10/23/2023 11:59 PM [facility] Hospital Encounter Non-Invasive [place] [phone] Discharge Disposition: Home Social History Tobacco Use [...] in a prison (including now)? No 04/01/2022 Sex and Gender Information Value Date Recorded Sex Assigned at Not on file Gender Identity Not on file Sexual Orientation Not on file documented as of this encounter Medications at Time of Discharge Medication Sig Dispensed Refills Start Date End Date valACYclovir (Valtrex) 500 mg tablet 500 mg. prn 12/24/2021 Ubrelvy 100 mg tablet 07/09/2023 SUMAtriptan (IMITREX) 20 mg/actuation [place], Non-Aerosol 1 spray by Nasal route as [...] QD 04/23/2020 fluticasone propionate (FLONASE) 50 mcg/actuation [place], Suspension INSTILL 1SPRAY IN EACH NOSTRIL TWICE [...] AM EDT Hospital Encounter Non-Invasive [place] [phone] Arrived 02/22/2025 1:30 PM EDT Appointment H[place]ology [place] [address] 02/22/2025 2:30 PM EDT Office Visit [place]ematology [place] [address] Ellis Childers MD [facility] [address] [place] [address] Felicita Landa APRN [facility] [address] [place] [address] documented as of this encounter Procedures Procedure Name Priority Date/Time Associated Diagnosis Comments PRG ILR INTERROGATION REMOTE UP TO 30 DAYS Routine 10/06/2023 2:07 AM EST documented in this encounter Results * Cardiac Device Check - Remote (10/06/2023 2:07 AM EST) Anatomical Region Laterality Modality Other 10/06/2023 2:07 AM EST Sera Arteaga MD IMPLANTABLE CARDIAC DEVICE documented in this encounter Visit Diagnoses Not on filedocumented in this encounter Care Teams Associate Designer Relationship Specialty Start Date End Date Radha Mckeon MD [address] [place] [address] PCP - General 09/23/10 documented as of this encounter
--- OUTSIDE RECORDS SUMMARY | 2024-07-24 17:20 | XMS_ITS | Encounter Summary ---
Author Organization [facility] [place] [address] Care Team Providers Care Grapple Yarder Operator Name Role Phone Radha Mckeon MD Primary Care Provider [phone] Encounter Details Date Type Department Care Team (Late st Contact Info) Description 05/19/2023 Orders Only [place] [phone] Sulema Gaines, CONSTRUCTION SPECIALIST Cervical radiculopathy Social History Tobacco Use Types Packs/Day Years [...] AM EDT Hospital Encounter Non-Invasive [place] [address] Arrived 02/22/2025 1:30 PM EDT Appointment Hematology and Oncology at [address] 02/22/2025 2:30 PM EDT Office Visit [place]ology [place] [address] Ellis Childers MD [facility] [address] [place] [address] Felicita Landa APRN [facility] [address] [place] [address] documented as of this encounter Results * XR Cervical Spine 2 or 3 Views (05/27/2023 1:30 PM EDT) Anatomical Region Laterality Modality C-spine N/A Digital Radiogra phy Impressions 05/28/2023 10:29 AM EDT 1. ??Status post C4-C6 ACDF without hardware complications or cervical spine dynamic instability. 2. ??Similar appearance of multilevel spondylosis. I have personally reviewed the image(s) and the resident's interpretation and agree with the findings, Sierra Isidro MD at 05/28/2023 10:29 AM Thank you for letting us participate in the care of this patient. ??If you are a health care provider and have any questions regarding this report, please contact the number below. ??For patients who have questions please contact the health manager primary care that requested your imaging first. ? Electronically signed by: Sierra Isidro MD, [facility] ([phone]), at 05/28/2023 10:29 AM Narrative 05/28/2023 10:29 AM EDT EXAMINATION: XR CERVICAL SPINE 2 OR 3 VIEWS CLINICAL HISTORY: AP and lateral 2 views, 1 year opst op follow up s/p ACDF C4-C6 05-19-22 TECHNIQUE: 4 views of the cervical spine COMPARISON: Cervical spine radiograph dated 08/18/2022 FINDINGS: Status post C4-C6 ACDF with intervertebral disc spacers at C4-C5 and C5-C6 without adjacent perihardware lucency or periprosthetic fractures. There is similar inferior endplate deformity of C3 with similar degenerative changes as evidenced by endplate sclerosis and uncovertebral arthropathy. Similar multilevel degenerative changes throughout the cervical spine as evidenced by intervertebral disc narrowing, uncovertebral and facet arthropathy. Normal alignment of the cervical spine which is maintained on flexion and extension views. No prevertebral soft tissue swelling. The patient is edentulous. Procedure Note Sierra Isidro MD - 05/28/2023 EXAMINATION: XR CERVICAL SPINE 2 OR 3 VIEWS CLINICAL HISTORY: AP and lateral 2 views, 1 year opst op follow up s/pACDF C4-C6 05-19-22 TECHNIQUE: 4 views of the cervical spine COMPARISON: Cervical spine radiograph dated 08/18/2022 FINDINGS: Status post C4-C6 ACDF with intervertebral disc spacers at C4-C5 andC5-C6 without adjacent perihardware lucency or periprosthetic fractures. Thereis similar inferior endplate deformity of C3 with similar degenerativechanges as evidenced by endplate sclerosis and uncovertebral arthropathy. Similar multilevel degenerative changes throughout the cervical spine as evidencedby intervertebral disc narrowing, uncovertebral and facet arthropathy. Normal alignment of the cervical spine which is maintained on flexionand extension views. No prevertebral soft tissue swelling. The patient is edentulous. IMPRESSION 1. Status post C4-C6 ACDF without hardware complications or cervicalspine dynamic instability. 2. Similar appearance of multilevel spondylosis. I have personally reviewed the image(s) and the resident's interpretationand agree with the findings, Sierra Isidro MD at 05/28/2023 10:29 AM Thank you for letting us participate in the care of this patient. If youare a health care provider and have any questions regarding this report,please contact the number below. For patients who have questions please contactthe health manager primary care that requested your imaging first. Electronically signed by: Sierra Isidro MD, [facility]([phone]), at 05/28/2023 10:29 AM Rey Clayton MD IMG DX ORDERABLES documented in this encounter Visit Diagnoses Diagnosis Cervical radiculopathy Brachial neuritis or radiculitis nos Cervical radiculopathy Brachial neuritis or radiculitis nos documented in this encounter Care Teams Grapple Yarder Operator Relationship Specialty Start Date End Date Radha Mckeon MD [address] [place] [address] PCP - General 09/23/10 documented as of this encounter
--- OUTSIDE RECORDS SUMMARY | 2024-07-24 17:20 | XMS_ITS | Encounter Summary ---
Author Organization [facility] [place] [address] Care Team Providers Care Still Tender Name Role Phone Radha Mckeon MD Primary Care Provider [phone] Encounter Details Date Type Department Care Team (Latest Contact Info) Description 05/27/2023 1:15 PM EDT - 05/27/2023 11:59 PM EDT Hospital Encounter XRay at [address] [place] [address] Rey Clayton MD [facility] [place] [address] Cervical radiculopathy Discharge Disposition: Home Social History Tobacco Use [...] to sleep or slept in a senior care (including now)? No 04/01/2022 Sex and Gender Information Value Date Recorded Sex Assigned at Not on file Gender Identity Not on file Sexual Orientation Not on file documented as of this encounter Medications at Time of Discharge Medication Sig Dispensed Refills Start Date End Date valACYclovir (Valtrex) 500 mg tablet 500 mg. prn 12/24/2021 SUMAtriptan (IMITREX) 20 mg/actuation [place], Non-Aerosol 1 spray by Nasal route as [...] QD 04/23/2020 fluticasone propionate (FLONASE) 50 mcg/actuation [place], Suspension INSTILL 1SPRAY IN EACH NOSTRIL TWICE [...] AM EDT Hospital Encounter Non-[place] [address] Arrived 02/22/2025 1:30 PM EDT Appointment H[place]ology [place] [address] 02/22/2025 2:30 PM EDT Office Visit Hematology [place] [address] Ellis Childers MD [facility] DR HEMAT[place] [address] Felicita Landa APRN [facility] [address] [place] [address] documented as of this encounter Procedures Procedure Name Priority Date/Time Associated Diagnosis Comments XR CERVICAL SPINE 2 OR 3 VIEWS Routine 05/27/2023 1:30 PM EDT Cervical radiculopathy documented in this encounter Results * XR Cervical Spine [...] who have questions please contact the health personal care attendant that requested your imaging first. ? Electronically signed by: Sierra Isidro MD, [facility] ([phone]), at 05/28/2023 10:29 AM Narrative 05/28/2023 10:29 [...] patients who have questions please contactthe health personal care attendant that requested your imaging first. Electronically signed by: Sierra Isidro MD, [facility]([phone]), at 05/28/2023 10:29 AM Rey Clayton MD IMG DX ORDERABLES documented in this encounter Visit Diagnoses Diagnosis Cervical radiculopathy Brachial neuritis or radiculitis nos documented in this encounter Care Teams Still Tender Relationship Specialty Start Date End Date Radha Mckeon MD [address] [place] [address] PCP - General 09/23/10 documented as of this encounter
--- OUTSIDE RECORDS SUMMARY | 2024-07-24 17:20 | XMS_ITS | Encounter Summary ---
Author Organization [facility] [place] [address] Care Team Providers Care Transit Department Clerk Name Role Phone Radha Mckeon MD Primary Care Provider Reason for Referral * Consultation (Routine) - Closed Specialty Diagnoses / Procedures Referred By Becki guillory Referred To Contact Orthopaedics Diagnoses Trigger middle finger of left hand Radha Mckeon MD [address] [place] [address] [facility] [address] [place] [phone] Referral ID Status Reason Start Date Expiration Date V isits Requested Visits Authorized [id number] Closed Consult, Test & Treat PCP Updated and/or Approved 06/18/2023 06/17/2024 12 12 Encounter Details Date Type Department Care Team (Latest Contact Info) Description 06/18/2023 Transcribe Orders eDH Incoming Referrals [phone] Radha Mckeon MD [address] [place], [place] [id number] Trigger middle finger of left hand Social History Tobacco Use Types Packs/Day Years [...] place to sleep or slept in a assisted (including now)? No 04/01/2022 Sex and Gender Information Value Date Recorded Sex Assigned at Not on file Gender Identity Not on file Sexual Orientation Not on file documented as of this encounter Plan of Treatment Upcoming Encounters Date Type Department Care Team (Late st Contact Info) Description 08/18/2024 11:00 AM EDT Hospital Encounter Non-[place] [address] Arrived 02/22/2025 1:30 PM EDT Appointment Hematology [place] [address] 02/22/2025 2:30 PM EDT Office Visit Hematology [place] [address] Ellis Childers MD [facility] [place] [address] Felicita Landa APRN [facility] [place] [address] Scheduled Referrals Name Type Priority Associated Diagnoses Order Schedule Referral to Orthopaedics Outpatient Referral Routine Trigger middle finger of left hand Ordered: 06/18/2023 documented as of this encounter Visit Diagnoses Diagnosis Trigger middle finger of left hand Trigger finger (acquired) documented in this encounter Care Teams Transit Department Clerk Relationship Specialty Start Date End Date Radha Mckeon MD [address] [place] [address] PCP - General 09/23/10 documented as of this encounter
--- OUTSIDE RECORDS SUMMARY | 2024-07-24 17:20 | XMS_ITS | Encounter Summary ---
Author Organization [facility] [place] [address] Care Team Providers Care Yard Labor Supervisor Name Role Phone Radha Mckeon MD Primary Care Provider [phone] Reason for Referral * Diagnostic Test (Routine) - Closed Specialty Diagnoses / Procedures Referred By Becki guillory Referred To Contact Radiology Diagnoses H/O epistaxis Epistaxis Mass of nasopharynx Dizziness Procedures MRI Brain wwo Contrast (Generic) Devonte Coulter PA [facility] [place] [address] [place] [address] Referral ID Status Reason Start Date Expiration Date V isits Requested Visits Authorized [id number] Closed Specialty Service Requested 11/25/2023 05/15/2025 1 1 Reason for Visit * Reason Comments Follow-up Nose bleeds, chronic rhinitis, can't smell Encounter Details Date Type Department Care Team (Late st Contact Info) Description 11/15/2023 2:45 PM EST Office [place] [address] Devonte Coulter PA [facility] [place] [address] H/O epistaxis; Epistaxis; Mass of nasopharynx; Dizziness Social History Tobacco [...] in a chcf (including now)? No 04/01/2022 Sex and Gender [...] - Inhaled Oxygen Concentration - - Weight 73.1 kg (161 lb 3.2 oz) 11/15/2023 2:40 P M EST Height 180.3 cm (5' 11) 11/15/2023 2:40 PM EST Body Mass Index 22.48 11/15/2023 2:40 PM EST documented in this encounter Progress Notes * Devonte Coulter PA - 11/15/2023 2:45 PM EST Images from the original note were not included. [facility] OT[facility]OLOGY FOLLOW UP NOTE Malik Machado is a 73 y.o. male followed for: epistaxis. He has a past medical history of Atrial Fibrillation on Xarelto for recurrent episodes of epistaxis. New issues since last visit: Epistaxis Has been having nosebleeds. Notices this infrequently, about every 1.5-2 months. Usually is spontaneously. Blows his nose, then performs digital compression. Sometimes uses afrin with these as well. Last event was about 2-3 weeks ago. Rhinorrhea Has also been noting that his nose has been running all the time. Has noted this for a few months. It runs when he is eating. Also runs when he is at work, at home. Also had a mini-stroke, and wonders if dizziness is related to that. Also feels that his sense of smell has been absent for about 2 years. This occurred, but unclear if it was gradual or precipitous. Dizziness Notes as he is walking along, he will start walking toward the side. Feels he is going to fall over at times. No vertigo or spinning sensation. No loud noise, aural fullness, or changes in hearing with the episodes. Did have a TIA in the spring last year, but no sequela noted. No pain in his nose. Seeing his PCP in January. Was also planning to see his Neurologist about the dizziness some time soon. 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, prescribed by PCP Migraine Postoperative anemia due to acute blood loss 11/17/2019 Thrombocytopenia - chronic 12/16/2012 Thrombocytopenia - chronic 12/16/2012 SOCIAL HISTORY Social History Tobacco Use Smoking status: Former Packs/day: 2.00 Years: 16.00 Additional pack years: 0.00 Total pack years: 32.00 Types: Cigarettes Quit date: 11/09/1982 Years since quittin.0 Smokeless tobacco: Never Substance Use Topics Alcohol use: No MEDICATIONS Current Outpatient Medications on File Prior to Visit Medication Sig Dispense Refill Ubrelvy 100 mg tablet SUMAtriptan (IMITREX) 20 mg/actuation [place], Non-Aerosol 1 spray by Nasal route as [...] Injector INJECT 1 PEN SUBCUTANEOUSLY ONCE MONTHLY pregabalin (LYRICA) 100 mg Capsule Take 1 capsule by mouth 2 times daily. lidocaine-prilocaine (EMLA) Cream as needed. polyethylene glycoL [...] PO QD fluticasone propionate (FLONASE) 50 mcg/actuation [place], Suspension INSTILL 1SPRAY IN EACH NOSTRIL TWICE [...] facility-administered medications on file prior to visit. ALLERGIES Allergies Allergen Reactions Zolpidem Other reaction(s): bad [...] Flecainide Other (See Comments) Adverse effect caused AL and QRS prolongation Other reaction(s): Other (See Comments) Adverse effect caused AL and QRS prolongation Other reaction(s): Other (See Comment) ROS 8 point Review of Systems was normal except for pertinent positives and negatives included in the History of Present Illness. PHYSICAL EXAMINATION Physical Examination: VITALS - There were no vitals taken for this visit. GENERAL - Well dressed and well nourished. - Breathing comfortably without stridor. - No acute distress. FACE - Full and symmetric facial movement. - No dysmorphic facial features. EYES - Periocular structures and conjunctiva healthy without lesions. - Pupils are equal, round, and reactive to light. - Extraocular movement is full and intact. - No evidence of nystagmus. EARS Left: - Auricle normal exam. - External auditory canal normal exam. - Tympanic membrane katz and translucent. Right: - Auricle normal exam. - External auditory canal normal exam. - Tympanic membrane katz and translucent. NOSE - Patent anteriorly with adequate airflow, healthy pink mucosa. - Septum is midline without significant deviation. - Inferior turbinates normal exam. MOUTH - Lips and gingiva pink, moist, without lesions. - Gums/dentition healthy. - Tongue and floor of mouth soft without lesions or masses. - Hard palate without lesions. PHARYNX - Soft palate without lesions. - Uvula is midline. - Oropharynx symmetric. NECK - Soft, supple, without significant lymphadenopathy. - Thyroid gland without masses or asymmetry. - Trachea midline without deviation. NEURO - Cranial nerves II-XII intact and symmetric. - Responds appropriately to questions. PSYCHE - Normal mood and affect. PROCEDURES Procedure: Flexible Nasal Endoscopy Indications: Evaluation for mucosal lesion of the upper airway. The risks of the procedure were reviewed, and verbal consent was obtained. Topical anesthetic and decongestant applied to the nasal cavity. The scope was passed through the nasal cavity to the nasopharynx. The examination was recorded on the TelePack Unit and uploaded to the [employer]. Patient tolerated the procedure well without any complications. On the right: Some mucous stranding noted. Moderate raised, yellow, submucosal mass noted along the superior right pharyngeal wall, without associated erythema or ulceration. On the left: Some mucous stranding noted. Right superior lateral mass, without ulceration of erythema. REVIEW OF IMAGES/STUDIES ASSESSMENT/RECOMMENDATIONS Malik Machado is a 73 y.o. male with the above-noted history and clinical exam findings. 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 Discussed that the imaging would also help to further characterize the soft tissue mass in the right nasopharynx. Discussed his epistaxis, and that I did not discern any vessel or obvious lesion that could be responsible and cauterized. Discussed his following up with his PCP regarding his dizziness, as given that the differential is so broad, it is best to begin workup in a more broad manner. Discussed that the MRI brain would also help to rule out any retrocochlear pathology/intraparenchymal etiology. - The patient expressed understanding of these points and agreement with the plan, and all questions that were asked were answered to the patient's satisfaction. Plan: > Follow up with PCP for dizziness. > MRI brain wwo contrast. > Patient should call if their symptoms worsen or fail to improve, if new concerning symptoms arise, or if they have any questions or concerns regarding their treatment. I appreciate the opportunity to be involved in Mr. Machado's care. Devonte Coulter PA-C [place], [place] [address] Office 11/15/2023 documented in this encounter Plan of Treatment Upcoming Encounters Date Type Department Care Team (Late st Contact Info) Description 08/18/2024 11:00 AM EDT Hospital Encounter Non-[place] [address] Arrived 02/22/2025 1:30 PM EDT Appointment Hematology [place] [address] 02/22/2025 2:30 PM EDT Office Visit Hematology [place] [address] Ellis Childers MD [facility] HEMATOLOGY [place] [address] Felicita Landa APRN [facility] HEMATOLOGY [place] [address] documented as of this encounter Results * MRI Brain wwo [...] who have questions please contact the health care attendant that requested your imaging first. ? Electronically signed by: Armando Holman MD, [facility] ([phone]), at 01/07/2024 2:37 PM Narrative 01/07/2024 2:37 [...] patients who have questions please contactthe health care attendant that requested your imaging first. Electronically signed by: Armando Holman MD, [facility]([phone]), at 01/07/2024 2:37 PM Armando Weiss MD IMG MRI ORDERABLES documented in this encounter Visit Diagnoses Diagnosis H/O epistaxis Personal history of other diseases of respiratory system Epistaxis Mass of nasopharynx Unspecified disease of pharynx Dizziness Dizziness and giddiness H/O epistaxis Personal history of other diseases of respiratory system Epistaxis Mass of nasopharynx Unspecified disease of pharynx Dizziness Dizziness and giddiness documented in this encounter Care Teams Yard Labor Supervisor Relationship Specialty Start Date End Date Radha Mckeon MD [address] [place] [address] PCP - General 09/23/10 documented as of this encounter
--- OUTSIDE RECORDS SUMMARY | 2024-07-24 17:20 | XMS_ITS | Encounter Summary ---
Author Organization [facility] [place] [address] Care Team Providers Care Medical Appointment Scheduler Name Role Phone Radha Mckeon MD Primary Care Provider [phone] Encounter Details Date Type Department Care Team (Late st Contact Info) Description 08/03/2023 2:30 PM EDT Office [place] [phone] Tasneem Mcmahon, HANH Trigger finger, left middle finger; Trigger middle finger of right hand Social History Tobacco Use Types Packs/Day [...] place to sleep or slept in a penitentiary (including now)? No 04/01/2022 Sex and Gender Information Value Date Recorded Sex Assigned at Not on file Gender Identity Not on file Sexual Orientation Not on file documented as of this encounter Miscellaneous Notes * Treatment - Therapy - Tasneem Mcmahon OT - 08/03/2023 2:30 PM EDT OCCUPATIONAL THERAPY ORTHOTIC EVALUATION- ORTHO CLINIC Referral Source: Dr.Qudsi Dena GUTIÉRREZ Follow-up: surgery pending Total Treatment time: 25 Minutes Timed Code Treatment Time: 0 minutes OCCUPATIONAL PROFILE: Malik Machado is a 73 y.o. year old Right hand dominant person who is seen today for care of his Left long finger trigger finger . Malik Machado is referred to Occupational Therapy for fabrication of a custom orthosis. Patient presents today alone. Date of onset of symptoms: several weeks Date of surgery: pending Pertinent History and/or Co-morbidities: 1. Trigger finger, left middle finger 2. Trigger middle finger of right hand Occupation: retired Vocational status: retired Avocational Activities: plays [employer], works at a local [employer] Pain: (Assessed using the Visual Analog Pain Scale) At Rest: 2/10 With Activity: 4/10- when locked into flexion Treatment Today: Orthosis - Finger Orthotic, W/O Jts, Custom, Fit & Adj ([id number]) Educated patient in etiology and biomechanics as related to patient's symptoms Fabricated palmar trigger finger orthosis Instructed in orthosis wear and care- to be worn at night Range of Motion Exercises: active tendon glide exercises for ROM CLINICAL DECISION MAKING: Malik Machado has a well fitting orthosis post therapy. Malik Machado is able to independently verbalize and demonstrate the recommended home program following instructions today. Malik Machado has limited potential for gains with therapy/home program use but pending surgical release. Patient knows to call with any questions or concerns. Plan for ongoing therapy is home program. Short Term Goals (to be met by end of the visit today): Date Goal Met: Today 1. Malik Machado will demonstrate independence with donning and doffing of his orthosis and verbalization of purpose. Goal Status: Meets. Today 2. Malik Machado will be independent with home exercises as evident with demonstration in therapy. Goal Status: Meets PLAN: Orthosis to provide support and protection to the joint (X) Malik Machado participated in the evaluation, collaborated on treatment goals, and agrees to the treatment plan. documented in this encounter Plan of Treatment Upcoming Encounters Date Type Department Care Team (Late st Contact Info) Description 08/18/2024 11:00 AM EDT Hospital Encounter [place] [address] Arrived 02/22/2025 1:30 PM EDT Appointment Hematology and Oncology at [place] [phone] 02/22/2025 2:30 PM EDT Office Visit Hematology and Oncology at [place] [address] Ellis Childers MD [facility] [place] [address] Felicita Landa APRN [facility] DR [place] [address] documented as of this encounter Procedures Procedure Name Priority Date/Time Associated Diagnosis Comments OT PLAN OF CARE CERT/RE-CERT Routine 08/03/2023 4:00 PM EDT Trigger finger, left middle finger documented in this encounter Visit Diagnoses Diagnosis Trigger finger, left middle finger Trigger middle finger of right hand Trigger finger (acquired) documented in this encounter Care Teams Medical Appointment Scheduler Relationship Specialty Start Date End Date Radha Mckeon MD [address] [place] [address] PCP - General 09/23/10 documented as of this encounter
--- OUTSIDE RECORDS SUMMARY | 2024-07-24 17:20 | XMS_ITS | Encounter Summary ---
Author Organization [facility] [place] [address] Care Team Providers Care Store Product Demonstrator Name Role Phone Radha Mckeon MD Primary Care Provider [phone] Reason for Visit * Reason Comments Follow-up S/P C4-C6 ACDF Encounter Details Date Type Department Care Team (Late st Contact Info) Description 05/27/2023 1:00 PM EDT Office Visit [place] [address] Rey Clayton MD [facility] [place] [address] Radiculopathy, unspecified spinal region Social History Tobacco Use Types Packs/Day Years [...] in a half-way (including now)? No 04/01/2022 Sex and Gender [...] - Inhaled Oxygen Concentration - - Weight 73 kg (161 lb) 05/27/2023 1:03 PM EDT Height 181.6 cm (5' 11.5) 05/27/2023 1:03 PM ED T Body Mass Index 22.14 05/27/2023 1:03 PM EDT documented in this encounter Progress Notes * Rey Clayton MD - 05/27/2023 1:00 PM EDT Images from the original note were not included. Date of surgery: 05/19/2022 Surgery: C4-C6 ACDF for left upper extremity pain Interval history: Mr. Machado returns today about 1 year out from surgery. He is doing well. He hashaving no neck or upper extremity pain. He is not taking any pain medication for his neck. His swallowing is essentially normal other than when he swallows large pills and then he is aware of the plate being present. He is back to his regular activities. Overall, he is quite pleased with how he is d [facility]. Physical exam General: Patient is comfortable, no acute distress Neck: He has a well-healed anterior incision. His neck is nontender to palpation. He can flex 30 degrees, extend 30 degrees, rotate 50 degrees, and side bend 15 degrees. Neurological exam: He has 5/5 strength of all upper extremity motors. He has a normal sensory exam. Assessment/plan: Mr. Machado is 1 year out from his ACDF, and his neck pain and radiculopathy is resolved. I encouraged him to continue with his activity as tolerated. He is going to get x-rays on his way out today. I will follow-up with him on an as-needed basis. Addendum: X-rays show a likely solid fusion from C4-C6 with no signs of hardware failure or loosening. documented in this encounter Plan of Treatment Upcoming Encounters Date Type Department Care Team (Late st Contact Info) Description 08/18/2024 11:00 AM EDT Hospital Encounter Non-Invasive Cardiology Lab [place] [phone] Arrived 02/22/2025 1:30 PM EDT Appointment Hematology and Oncology at [address] 02/22/2025 2:30 PM EDT Office Visit Hematology and Oncology at [address] Ellis Childers MD [facility] [address] HEMATOLOGY [place] [address] Felicita Landa APRN [facility] HEMATOLOGY [place] [address] documented as of this encounter Visit Diagnoses Diagnosis Radiculopathy, unspecified spinal region documented in this encounter Care Teams Store Product Demonstrator Relationship Specialty Start Date End Date Radha Mckeon MD [address] [place] [address] PCP - General 09/23/10 documented as of this encounter
--- OUTSIDE RECORDS SUMMARY | 2024-07-24 17:20 | XMS_ITS | Encounter Summary ---
Author Organization [facility] [place] [address] Care Team Providers Care Patient Access Name Role Phone Radha Mckeon MD Primary Care Provider [phone] Encounter Details Date Type Department Care Team (Latest Contact Info) Description 09/23/2023 11:00 AM EST - 09/23/2023 11:59 PM EST Hospital Encounter [place]-In[place] [phone] Discharge Disposition: Home Social History Tobacco Use [...] a senior living (including now)? No 04/01/2022 Sex and Gender Information Value Date Recorded Sex Assigned at Not on file Gender Identity Not on file Sexual Orientation Not on file documented as of this encounter Medications at Time of Discharge Medication Sig Dispensed Refills Start Date End Date valACYclovir (Valtrex) 500 mg tablet 500 mg. prn 12/24/2021 Ubrelvy 100 mg tablet 07/09/2023 SUMAtriptan (IMITREX) 20 mg/actuation [employer], Non-Aerosol 1 spray by Nasal route as [...] QD 04/23/2020 fluticasone propionate (FLONASE) 50 mcg/actuation [employer], Suspension INSTILL 1SPRAY IN EACH NOSTRIL TWICE [...] Hospital Encounter Non-Invasive [place] [phone] Arrived 02/22/2025 1:30 PM EDT Appointment Hematology [place] [address] 02/22/2025 2:30 PM EDT Office Visit Hematology [place] [phone] Ellis Childers MD [facility] [address] [place] [address] Felicita Landa APRN [facility] [address] [place] [address] documented as of this encounter Procedures Procedure Name Priority Date/Time Associated Diagnosis Comments PRG ILR INTERROGATION REMOTE UP TO 30 DAYS Routine 09/05/2023 1:09 AM EDT documented in this encounter Results * Cardiac Device Check - Remote (09/05/2023 1:09 AM EDT) Anatomical Region Laterality Modality Other 09/05/2023 1:09 AM EDT Omar Corcoran MD IMPLANTABLE CARDIAC DEVICE documented in this encounter Visit Diagnoses Not on filedocumented in this encounter Care Teams Patient Access Relationship Specialty Start Date End Date Radha Mckeon MD [address] [place] [address] PCP - General 09/23/10 documented as of this encounter
--- OUTSIDE RECORDS SUMMARY | 2024-07-24 17:20 | XMS_ITS | Encounter Summary ---
Author Organization [facility] [place] [address] Care Team Providers Care Civil Draftsman Name Role Phone Radha Mckeon MD Primary Care Provider [phone] Reason for Visit * Reason Comments Headache Encounter Details Date Type Department Care Team (Late st Contact Info) Description 05/03/2023 9:33 PM EDT - 2023 12:50 AM EDT [place] [address] Shruthi Levy MD [facility] DR EMERGENCY MEDIC[place] [address] Trigeminal neuralgia Discharge Disposition: Home Social History Tobacco Use [...] place to sleep or slept in a alf (including now)? No 04/01/2022 Sex and Gender Information Value Date Recorded Sex Assigned at Not on file Gender Identity Not on file Sexual Orientation Not on file documented as of this encounter Last Filed Vital Signs Vital Sign Reading Time Taken Comments Blood Pressure 174/92 2023 12:49 AM EDT Pulse 72 2023 12:49 AM EDT Temperature 36.6 ??C (97.8 ??F) 2023 12:49 AM E DT Respiratory Rate 16 2023 12:49 AM EDT Oxygen Saturation 98% 2023 12:49 AM EDT Inhaled Oxygen Concentration - - Weight 84.4 kg (186 lb) 05/03/2023 5:05 PM EDT Height 180.3 cm (5' 11) 05/03/2023 5:05 PM EDT Body Mass Index 25.94 05/03/2023 5:05 PM EDT documented in this encounter Discharge Instructions * Discharge Instructions* Magy Cartwright MD - 2023 12:30 AM EDT Please follow-up with your regular provider within a week to recheck your symptoms. You were evaluated at the [facility]. At this time your medical team do notthink that your symptoms necessitate a hospital stay, however every disease is different and your symptoms can change. You are responsible for your health and healthcare so seek medical care if your symptoms worsen, you have severe shortness of breath or chest pain, have one-sided your body weakness , start vomiting or pooping blood, have vision loss, a swollen or red eye, or any other concerning symptoms. If you need help scheduling an appointment, call the [facility] main line at [phone].However, if you feel you are having a medical emergency, call 911. Follow up as indicated in your discharge instructions. Take all your medications as previously prescribed unless directed otherwise by your medical team today. * Attachments The following attachments cannot be sent through Care Everywhere. * Trigeminal Neuralgia ([place]) documented in this encounter Medications at Time [...] QD 04/23/2020 fluticasone propionate (FLONASE) 50 mcg/actuation [place], Suspension INSTILL 1SPRAY IN EACH NOSTRIL TWICE [...] 10/07/2017 08/03/2023 documented as of this encounter ED Notes * Magy Cartwright MD - 2023 12:16 AM EDT ED Resident Note HPI: Malik Machado is a 73 y.o. male with prior a fib on Carmolex,, RBBB who presents to the Emergency Department with a left-sided temporal headache which is colicky and intermittent in nature. This headache began last night, and is localized to the left temporal region. It comes and goes, and when it is present is quite severe. He feels like an intense stabbing and throbbing sensation. Patient notes that rubbing this area makes the pain worse. He does have a history of migraines but has never had aheadache similar to this. He denies any associated vision changes, facial tingling, numbness or tingling in his extremities, difficulty speaking, swallowing, or walking. He has no shortness of breath, fevers, or neck pain. He is on blood thinners. He has not had any trauma or falls. Headache resolves completely in between episodes. ROS is positive for an episode of chest pain with spontaneously resolved last night and occurred while at rest. ROS as per HPI Vitals: ED Triage Vitals [05/03/23 1705] BP: (!) 176/99 Pulse: n/a Resp: 18 Temp: 36.1 ??C (97 ??F) Temp src: Tympanic SpO2: 98 % O2 Device: RA O2 Flow Rate (L/min): n/a Physical Exam Vitals and nursing note reviewed. Constitutional: General: He is not in acute distress. Appearance: He is well-developed. He is not diaphoretic. HENT: Head: Normocephalic and atraumatic. Comments: Patient had an observed episode of his pain during facial sensation testing. Pain localized to the left temporal region and resolved after <30 seconds. Nose: Nose normal. Mouth/Throat: Mouth: Mucous membranes are moist. Pharynx: Oropharynx is clear. Eyes: General: No scleral icterus. Extraocular Movements: Extraocular movements intact. Conjunctiva/sclera: Conjunctivae normal. Pupils: Pupils are equal, round, and reactive to light. Cardiovascular: Rate and Rhythm: Normal rate and regular rhythm. Heart sounds: Normal heart sounds. Pulmonary: Effort: Pulmonary effort is normal. No respiratory distress. Breath sounds: Normal breath sounds. No wheezing or rales. Abdominal: General: Bowel sounds are normal. There is no distension. Palpations: Abdomen is soft. Tenderness: There is no abdominal tenderness. There is no guarding or rebound. Musculoskeletal: Cervical back: Normal range of motion and neck supple. No rigidity. Right lower leg: No edema. Left lower leg: No edema. Skin: General: Skin is warm and dry. Neurological: General: No focal deficit present. Mental Status: He is alert and oriented to person, place, and time. Cranial Nerves: No cranial nerve deficit. Sensory: No sensory deficit. Motor: No weakness. Coordination: Coordination normal. Gait: Gait normal. Psychiatric: Mood and Affect: Mood normal. Behavior: Behavior normal. ED Course: I have reviewed labs and imaging, images and available reports, and they are significant for: ED Course as of 05/04/23 0016 WedMay 03, [id number] WBC: 7.3 223 Hemoglobin: 15.3 2235 Platelets(!): 97 Consistent with previous baseline 2355 CRP: <3.0 6 Sed Rate(!): <3 2355 TSH: 1.33 2355 Troponin-T HS: 17 2355 Magnesium: 0.86 CT Head wo Contrast (Generic) Final Result No acute intracranial process. Chronic ischemic changes. Preliminary report signed by: Christina Nobles at 05/03/2023 5:44 PM I have personally reviewed the image(s) and the resident's interpretation and agree with the findings, Armando Holman MD at 05/03/2023 5:54 PM Thank you for letting us participate in the care of this patient. If you are a health care provider and have any questions regarding this report, please contact the number below. For patients who have questions please contact the health family day carer that requested your imaging first. Assessment and Plan: 73 y.o. male with colicky left temporal headache and facial pain which began last night. Patient ishemodynamically stable and afebrile with an unremarkable exam and normal neurological exam. Primaryconcern is for either temporal arteritis or trigeminal neuralgia, and less likely SAH, ICH, stroke,TIA, vs other. CTH with chronic ischemic changes but no acute process, and labs are notable for normal inflammatory markers and otherwise reassuring labs, which points against temporal arteritis. For this reason, suspect possible trigeminal neuralgia, and prescribed carbemazepine. Patient will follow up with his PCP and return for any worsening or new concerning symptoms. Magy Cartwright MD Resident 05/04/23 1820 Associated attestation - Shruthi Levy MD - 05/05/2023 5:27 PM EDT ED ATTENDING ATTESTATION NOTE The patient was seen in conjunction with the resident physician. I have independently performed thekey portions of the history and physical exam. I have reviewed the diagnostic studies including labs, imaging studies and EKGs. I have discussed the details of the case with the resident and agree with the assessment and plan as described in the resident note unless noted below or in my separate note. * Shruthi Levy MD - 05/03/2023 10:17 PM EDT Brief Attending Note I cared for the patient with the resident physician. Please see his/her/their note associated with the encounter, for more details. I have reviewed all diagnostic studies personally including labs, imaging studies and EKGs. Please see ED course below for details. Assessment/plan: Medical Decision Making: Briefly, Malik Machado is a 73 y.o. male who presents with headache ED Course: ED Course as of 2332May 03, 2023 2213 72 M with new-onset BAILEY and some transient tingling and transient blurred vision over the last couple of weeks, had prior TIA workup. L temporal BAILEY that is exquisitely tender when episodes happen; episodes last less than a minute. Is completely asx between episodes. Also had episode of deep but superficial chest pain, yesterday. Currently No CP 2215 CT Head wo Contrast (Generic) IMPRESSION No acute intracranial process. Chronic ischemic changes. 2355 Troponin-T HS: 17 2355 CRP: <3.0 2355 Sed Rate(!): <3 2355 WBC: 7.3 2355 Hemoglobin: 15.3 2355 Hematocrit: 45.5 2355 Creatinine: 1.17 Stable from prior WedMay 04, 2023 0032 On exam, nonfocal neuro exam, cranial nerves II through XII intact, able to ambulate dependently without ataxia, no slurred speech. Occasionally twitches when his headache comes on, and it is elicited by touching the temporal area at all 3 MDM: Patient presents with unilateral headache that lasts for seconds. He had a couple episodes while I was in the room and clinically this is most consistent with a trigeminal neuralgia or tic [place]. His CRP is negative here and I have less concern for temporal arteritis. CT head did not demonstrate ICH or mass effect concerning for a malignancy or herniation syndrome. Started the patient on carbamazepine and encouraged him to follow-up with his PCP in 1 week. Patient expressed understanding. Stable for discharge 1. Trigeminal neuralgia Dispo: Discharge Shruthi Levy MD 05/04/23857 * Garrett Caal APRN - 05/03/2023 5:01 PM EDT Brief provider in triage note 72-year-old male with past medical history of atrial fibrillation on Xarelto and recent TIA presents to ED AOx4 and ambulatory complaining of an abrupt onset of left temporal headache that occurred yesterday. Patient describes his headache as someone stabbing him in the side of the head with a knife with intermittent blurred vision. Patient denies any slurred speech, numbness, tingling, weakness, chest pain, shortness of breath, etc. Patient states his pain is intermittent without any aggravating or alleviating factors. On exam, the patient is resting comfortably no acute distress. Vital signs normal. Neurologic exam grossly benign, no focal neurodeficits seen. Garrett Caal APRN 05/03/23 1705 documented in this encounter Plan of Treatment Upcoming Encounters Date Type Department Care Team (Late st Contact Info) Description 08/18/2024 11:00 AM EDT Hospital Encounter Non-[place] [phone] Arrived 02/22/2025 1:30 PM EDT Appointment [place]ology [place] [address] 02/22/2025 2:30 PM EDT Office Visit [place] [address] Ellis Childers MD [facility] DR HEMATOLOGY AND [place] [address] Felicita Landa APRN [facility] HEMATOLOGY AND [place] [address] documented as of this encounter Procedures Procedure Name Priority Date/Time Associated Diagnosis Comments TROPONIN - SERIES STAT 05/03/2023 11: 47 PM EDT EKG 12-LEAD STAT 05/03/2023 10:26 PM EDT TROPONIN - SERIES STAT 05/03/2023 10: 00 PM EDT TSH [place]ASC[place] STAT 05/03/2023 10:00 PM EDT CRP, ACUTE INFLAMMATION STAT 05/03/2023 10:00 PM EDT HEMOGRAM STAT 05/03/2023 10:00 PM EDT DIFFERENTIAL, AUTOMATED STAT 05/03/2023 10:00 PM EDT SEDIMENTATION RATE STAT 05/03/2023 10 :00 PM EDT CBC (WITH DIFF) STAT 05/03/2023 10:00 PM EDT MAGNESIUM STAT 05/03/2023 10:00 PM EDT COMPREHENSIVE METABOLIC PANEL STAT 05/03/2023 10:[address] HEAD WO CONTRAST (GENERIC) STAT 05/03/2023 5:37 PM EDT documented in this encounter Results * Troponin (05/03/2023 11:47 PM EDT) Troponin-T, High Sensitivity 18 <=22 ng/L [facility] Comment: This patient's troponin T concentration was determined using the Robb 5th Generation troponin T assay. The 99th percentile for Troponin T for this test is 14 ng/L for females, and 22 ng/L for males. According to the fourth universal definition of myocardial infarction, the term acute myocardial infarction should be used when there is acute myocardial injury with clinical evidence of acute myocardial ischemia and with detection of a rise and/or fall of cardiac troponin values with at least one value above the 99th percentile and at least one of the following: - Symptoms of myocardial ischemia; - New ischemic ECG changes; - Development of pathological Q waves; - Imaging evidence of new loss of viable myocardium or new regional wall motion abnormality in a pattern consistent with an ischemic etiology; - Identification of a coronary thrombus by angiography or autopsy (not for type 2 or 3 MIs) Serial measurement of troponin and the change in troponin concentration over time (delta) is crucial for the diagnosis of acute myocardial infarction. Guidance on the interpretation of the new 5th Generation Troponin T values and the delta troponin value can be found in the [facility] Test Catalog Troponin - [facility] Test Catalog Reference: Fourth [place] Definition of Myocardial Infarction. Journal of the [place] [employer] 2018;72:5775-4341 Blood 05/03/2023 11:4 7 PM EDT 05/03/2023 11:53 PM EDT Narrative Resulting Agency Comment Spec In Lab Jia John MD CHEMISTRY ORDERABLES [facility] [place] [address] * EKG 12 Lead (05/03/2023 10:26 PM EDT) Ventricular rate 54 BPM MUSE SYSTEM Atrial Rate 54 BPM MUSE SYSTEM P-R Interval 172 ms MUSE SYSTEM QRS Duration 146 ms MUSE SYSTEM Q-T Interval 438 ms MUSE SYSTEM QTC Calculated (Bezet) 415 ms MUSE SYSTEM Calculated P [place] 80 degrees MUSE SYSTEM Calculated R [place] -56 degrees MUSE SYSTEM Calculated T [place] 17 degrees MUSE SYSTEM INTERPRETATION Sinus bradycardia Right bundle branch block Left anterior fascicular block Bifascicular block Abnormal ECG When compared with ECG of 02-JUL-2022 13:47, No significant change was found Confirmed by MD Naveen, Arden ([id number]) on 05/12/2023 10:53:14 AM MUSE SYSTEM 05/03/2023 10:2 6 PM EDT 05/12/2023 10:53 AM EDT Shruthi Levy MD ECG ORDERABLES MUSE SYSTEM * Differential, Automated (05/03/2023 10:00 PM EDT) Neutrophil % 78.7 % [facility] Neutrophil Absolute 5.76 1.70 - 6.10 x10(3)/[facility] Lymph % 12.0 % [facility] Lymphocytes Abs 0.9 0.9 - 3.2 x10(3)/[facility]ORATORY Monocyte % 6.6 % [facility] Monocyte Abs 0.5 0.3 - 0.9 x10(3)/[facility]ORATORY Eos % 2.0 % [facility] Eosinophils Abs 0.2 0.0 - 0.4 x10(3)/[facility] Basophil % 0.4 % [facility] Baso Absolute 0.0 0.0 - 0.1 x10(3)/[facility] LABORATORY Immature Gran % 0.30 % [facility] Comment: Immature granulocytes(IG's)percentage and absolute count will include metamyelocytes, myelocytes, and promyelocytes. Blood smears from CBCs yielding IG's will be scanned manually for concordance. If this scan disagrees with the automated IG or if promyelocytes are noted, a manual differential will be performed. Immature Gran Absolute 0.02 0.00 - 0.04 x10(3)/[facility] Blood 05/03/2023 10:0 0 PM EDT 05/03/2023 10:11 PM EDT Narrative Resulting Agency Comment Spec In Lab Garrett Caal MACHINE LEARNING INTERN HEMATOLOGY ORDERABLE S [facility] [place] [address] * (ABNORMAL) Hemogram (05/03/2023 10:00 PM EDT) White Blood Cell 7.3 4.0 - 9.5 x10(3)/[facility] LABORATORY Red Blood Cell 4.99 4.58 - 5.54 x10(6)/[facility] Hemoglobin 15.3 13.7 - 16.5 g/dL [facility] Hematocrit 45.5 40.5 - 48.5 % [facility] Mean Cell Volume 91.2 82.9 - 93.1 fL [facility] Mean Cell Hemoglobin 30.7 27.5 - 32.1 pg [facility] Mean Cell Hemoglobin Concentration 33.6 32.0 - 35.7 g/dL [facility] Platelet 97(L) 145 - 357 x10(3)/[facility]ATORY RDW Standard Deviation 40.8 36.0 - 45.0 fL [facility] RDW coefficient of variation 12.1 11.4 - 13.8 % [facility] Mean Platelet Volume 11.2 7.6 - 12.9 fL [facility] NRBC% auto 0.0 % [facility] NRBC Absolute 0.000 0.000 - 0.000 x10(3)/[facility] Blood 05/03/2023 10:0 0 PM EDT 05/03/2023 10:11 PM EDT Narrative Resulting Agency Comment Spec In Lab Garrett Caal MACHINE LEARNING INTERN HEMATOLOGY ORDERABLE S [facility] [place] [address] * TSH [place] (05/03/2023 10:00 PM EDT) Thyroid Stimulating Hormone 1.33 0.27 - 4.20 mcIU/mL [facility] Comment: Reference Interval (mcIU/mL): Females: ??First Trimester: 0.23-3.88 ??Second Trimester: 0.22-3.90 ??Third Trimester: 0.44-4.66 Blood 05/03/2023 10:0 0 PM EDT 05/03/2023 10:11 PM EDT Narrative Resulting Agency Comment Spec In Lab Jia John MD CHEMISTRY ORDERABLES Performing Organization Address City/[facility]/ZIP Co de Phone Number [facility] [place] [address] * Magnesium (05/03/2023 10:00 PM EDT) Magnesium 0.86 0.69 - 1.07 mmol/L [facility] Blood 05/03/2023 10:0 0 PM EDT 05/03/2023 10:11 PM EDT Narrative Resulting Agency Comment Spec In Lab Jia John MD CHEMISTRY ORDERABLES Performing Organization Address [facility] Co de Phone Number [facility] [place] [address] * Troponin (05/03/2023 10:00 PM EDT) Troponin-T, High Sensitivity 17 <=22 ng/L [facility] Comment: This patient's troponin T concentration was determined using the Robb 5th Generation troponin T assay. The 99th percentile for Troponin T for this test is 14 ng/L for females, and 22 ng/L for males. According to the fourth universal definition of myocardial infarction, the term acute myocardial infarction should be used when there is acute myocardial injury with clinical evidence of acute myocardial ischemia and with detection of a rise and/or fall of cardiac troponin values with at least one value above the 99th percentile and at least one of the following: - Symptoms of myocardial ischemia; - New ischemic ECG changes; - Development of pathological Q waves; - Imaging evidence of new loss of viable myocardium or new regional wall motion abnormality in a pattern consistent with an ischemic etiology; - Identification of a coronary thrombus by angiography or autopsy (not for type 2 or 3 MIs) Serial measurement of troponin and the change in troponin concentration over time (delta) is crucial for the diagnosis of acute myocardial infarction. Guidance on the interpretation of the new 5th Generation Troponin T values and the delta troponin value can be found in the [facility] Test Catalog Troponin - [facility] Test Catalog Reference: Fourth [place] Definition of Myocardial Infarction. Journal of the [employer] 2018;72:3053-5945 Blood 05/03/2023 10:0 0 PM EDT 05/03/2023 10:11 PM EDT Narrative Resulting Agency Comment Spec In Lab Jia John MD CHEMISTRY ORDERABLES [facility] [place] [address] * CRP, acute inflammation (05/03/2023 10:00 PM EDT) C-Reactive Protein <3.0 <=4.9 mg/L [facility] Blood 05/03/2023 10:0 0 PM EDT 05/03/2023 10:11 PM EDT Narrative Resulting Agency Comment Spec In Lab Garrett Caal APRN CHEMISTRY ORDERABLES Performing Organization Address [facility]/ZIP Co de Phone Number [facility] [place] [address] * (ABNORMAL) Sedimentation rate (05/03/2023 10:00 PM EDT) Sedimentation Rate Automated <3(L) 3 - 46 mm/hr [facility] Comment: Effective October 11, 2019 new capillary photometric technology has resulted in a change in reference ranges. It is recommended that each ESR result be reviewed with its own age appropriate reference range. Blood 05/03/2023 10:0 0 PM EDT 05/03/2023 10:11 PM EDT Narrative Resulting Agency Comment Spec In Lab Garrett Caal APRN HEMATOLOGY ORDERABLE S Performing Organization Address City/[facility]/ZIP Co de Phone Number [facility] [place] [address] * (ABNORMAL) Comprehensive metabolic panel (non-fasting) (05/03/2023 10:00 PM EDT) Glucose 165 65 - 199 mg/dL [facility] Comment:Diabetes: >=200 mg/d L plus symptoms Blood Urea Nitrogen 22(H) 10 - 20 mg/dL [facility] Creatinine 1.17 0.80 - 1.50 mg/dL [facility] Sodium 141 135 - 145 mmol/L [facility] Potassium 4.2 3.5 - 5.0 mmol/L [facility] Comment: Please note: ??Patients with WBC >100,000 may have falsely elevated Potassium levels. ??For accurate Potassium quantification in these patients send serum separator tube (gold top) for subsequent determinations. ??Contact the Clinical Chemistry Laboratory if there are any questions. Chloride 105 98 - 107 mmol/L [facility] Carbon Dioxide 25 22 - 31 mmol/L [facility] Anion Gap 11 5 - 15 mmol/L [facility] Calcium 9.2 8.5 - 10.5 mg/dL [facility] Protein, Total 6.5 6.1 - 8.0 g/dL [facility] Albumin 4.2 3.2 - 5.2 g/dL [facility] Aspartate Aminotransferase 37 0 - 39 unit/L [facility] Alanine Aminotransferase 17 0 - 55 unit/L [facility] Alkaline Phosphatase 94 40 - 130 unit/L [facility] Bilirubin, Total 0.6 0.2 - 1.3 mg/dL [facility] Est Glomerular Filtration Rate 67 >=60 mL/min/1. 73 m?? [facility] Comment: This patient's estimated GFR was [...] Agency Comment Spec In Lab Garrett Caal MACHINE LEARNING INTERN CHEMISTRY ORDERABLES [facility] [place] [address] * CT Head wo Contrast (Generic) (05/03/2023 5:37 PM EDT) Anatomical Region Laterality Modality Head Computed Tomogra phy Impressions 05/03/2023 5:54 PM EDT No acute intracranial process. Chronic ischemic changes. Preliminary report signed by: Christina Nobles at 05/03/2023 5:44 PM I have personally reviewed the image(s) and the resident's interpretation and agree with the findings, Armando Holman MD at 05/03/2023 5:54 PM Thank you for letting us participate in the care of this patient. ??If you are a health care provider and have any questions regarding this report, please contact the number below. ??For patients who have questions please contact the health family day carer that requested your imaging first. ? Electronically signed by: Armando Holman MD, [facility] ([phone]), at 05/03/2023 5:54 PM Narrative 05/03/2023 5:54 PM EDT EXAMINATION: CT HEAD WO CONTRAST (GENERIC) CLINICAL HISTORY: Transient ischemic attack (TIA) TECHNIQUE: CT head performed without intravenous contrast administration. COMPARISON: None FINDINGS: No acute intracranial hemorrhage, mass, mass effect, or extra-axial collection. Small hypodensities within the periventricular and subcortical white matter most consistent with chronic microvascular disease. Ventricles are normal in size and configuration. A focal hypodensity identified in the right periatrial region is consistent with an old infarct and there is mild ex vacuo dilatation of the right lateral ventricular atrium and occipital horn Basal cisterns are patent. Paranasal sinuses and mastoid air cells are clear. No calvarial fracture or extracalvarial soft tissue abnormality. Procedure Note Armando Holman MD - 05/03/2023 EXAMINATION: CT HEAD WO CONTRAST (GENERIC) CLINICAL HISTORY: Transient ischemic attack (TIA) TECHNIQUE: CT head performed without intravenous contrast administration. COMPARISON: None FINDINGS: No acute intracranial hemorrhage, mass, mass effect, or extra-axialcollection. Small hypodensities within the periventricular and subcortical whitematter most consistent with chronic microvascular disease. Ventricles are normal insize and configuration. A focal hypodensity identified in the right periatrialregion is consistent with an old infarct and there is mild ex vacuo dilatation ofthe right lateral ventricular atrium and occipital horn Basal cisterns arepatent. Paranasal sinuses and mastoid air cells are clear. No calvarial fractureor extracalvarial soft tissue abnormality. IMPRESSION No acute intracranial process. Chronic ischemic changes. Preliminary report signed by: Christina Nobles at 05/03/2023 5:44 PM I have personally reviewed the image(s) and the resident's interpretationand agree with the findings, Armando Holman MD at 05/03/2023 5:54 PM Thank you for letting us participate in the care of this patient. If youare a health care provider and have any questions regarding this report,please contact the number below. For patients who have questions please contactthe health family day carer that requested your imaging first. Electronically signed by: Armando Holman MD, [facility]([phone]), at 05/03/2023 5:54 PM Garrett Caal MACHINE LEARNING INTERN IMG CT ORDERABLES documented in this encounter Visit Diagnoses Diagnosis Trigeminal neuralgia documented in this encounter Care Teams Civil Draftsman Relationship Specialty Start Date End Date Radha Mckeon MD [address] [place] [address] PCP - General 09/23/10 documented as of this encounter
--- OUTSIDE RECORDS SUMMARY | 2024-07-24 17:20 | XMS_ITS | Encounter Summary ---
Author Organization [facility] [place] [address] Care Team Providers Care Information Systems Security Specialist Name Role Phone Radha Mckoen MD Primary Care Provider [phone] Encounter Details Date Type Department Care Team (Latest Contact Info) Description 08/24/2023 11:00 AM EDT - 08/24/2023 11:59 PM EDT Hospital Encounter [place] [address] Discharge Disposition: Home Social History Tobacco Use [...] mg tablet 07/09/2023 SUMAtriptan (IMITREX) 20 mg/actuation [place], Non-Aerosol 1 spray by Nasal route as [...] QD 04/23/2020 fluticasone propionate (FLONASE) 50 mcg/actuation [place], Suspension INSTILL 1SPRAY IN EACH NOSTRIL TWICE [...] AM EDT Hospital Encounter [place] [address] Arrived 02/22/2025 1:30 PM EDT Appointment H[place]ology [place] [address] 02/22/2025 2:30 PM EDT Office Visit Hematology [place] [address] Ellis Childers MD [facility] DR HEMATOLOGY AND ONCOLOGY [place], [place] [id number] Felicita Landa APRN [facility] [address] [place] [address] documented as of this encounter Procedures Procedure Name Priority Date/Time Associated Diagnosis Comments PRG ILR INTERROGATION REMOTE UP TO 30 DAYS Routine 08/05/2023 2:03 AM EDT documented in this encounter Results * Cardiac Device Check - Remote (08/05/2023 2:03 AM EDT) Anatomical Region Laterality Modality Other 08/05/2023 2:03 AM EDT Sera Arteaga MD IMPLANTABLE CARDIAC DEVICE documented in this encounter Visit Diagnoses Not on filedocumented in this encounter Care Teams Information Systems Security Specialist Relationship Specialty Start Date End Date Radha Mckeon MD [address] [place] [address] PCP - General 09/23/10 documented as of this encounter
--- OUTSIDE RECORDS SUMMARY | 2024-07-24 17:20 | XMS_ITS | Encounter Summary ---
Author Organization [facility] [place] [address] Care Team Providers Care Restoration Ecologist Name Role Phone Radha Mckeon MD Primary Care Provider [phone] Encounter Details Date Type Department Care Team (Late st Contact Info) Description 08/31/2023 Orders [place] [address] Jovan Duong MD [facility] [place] [address] Trigger finger, left middle finger Social History [...] AM EDT Hospital Encounter Non-Invasive Cardiology Lab [address] Arrived 02/22/2025 1:30 PM EDT Appointment Hematology and Oncology at [place] [address] 02/22/2025 2:30 PM EDT Office Visit Hematology and Oncology at [place] [address] Ellis Childers MD [facility] DR [place] [address] Felicita Landa APRN [facility] [address] [place] [address] documented as of this encounter Visit Diagnoses Diagnosis Trigger finger, left middle finger documented in this encounter Care Teams Restoration Ecologist Relationship Specialty Start Date End Date Radha Mckeon MD [address] [place] [address] PCP - General 09/23/10 documented as of this encounter
--- OUTSIDE RECORDS SUMMARY | 2024-07-24 17:21 | XMS_ITS | Encounter Summary ---
Author Organization [facility] [place] [address] Care Team Providers Care Cnmt Name Role Phone Radha Mckeon MD Primary Care Provider [phone] Encounter Details Date Type Department Care Team (Latest Contact Info) Description 02/25/2023 11:00 AM EDT - 02/25/2023 2:59 PM EDT Hospital Encounter Non-Invasive [place] [phone] Discharge Disposition: Home Social History Tobacco Use [...] 500 mg tablet 500 mg. prn 12/24/2021 benzonatate (Tessalon) 200 mg capsule Take 200 [...] as needed. 11/17/2019 acyclovir (ZOVIRAX) 200 mg CapsuleIndications:p rn 1 capsule as needed. Indications: prn diclofenac (VOLTAREN) 1 % Gel Apply topically Once daily as needed. tamsulosin (Flomax) 0.4 mg Capsule TK 1 C PO QD 04/23/2020 fluticasone propionate (FLONASE) 50 mcg/actuation [place], Suspension INSTILL 1SPRAY IN EACH NOSTRIL TWICE [...] XL (Toprol-XL) 100 mg ER 24 hr tabletIndications:Pa roxysmal atrial fibrillation Take 1 tablet by mouth daily. 135 tablet 1 01/25/2023 04/20/2023 pregabalin (LYRICA) 100 mg Capsule Take 1 capsule by mouth 2 times daily. 02/11/2021 11/29/2023 omeprazole (PRILOSEC) 20 mg Capsule, Delayed Release(E.C.) Take 20 mg by mouth 2 times daily. 10/07/2017 08/03/2023 documented as of this encounter Plan of Treatment Upcoming Encounters Date Type Department Care Team (Late st Contact Info) Description 08/18/2024 11:00 AM EDT Hospital Encounter Non-Invasive [place] [address] Arrived 02/22/2025 1:30 PM EDT Appointment Hematology [place] [address] 02/22/2025 2:30 PM EDT Office Visit Hematology [place] [address] Ellis Childers MD [facility] [address] [place] [address] Felicita Landa APRN [facility] [place] [address] documented as of this encounter Procedures Procedure Name Priority Date/Time Associated Diagnosis Comments PRG ILR INTERROGATION REMOTE UP TO 30 DAYS Routine 02/25/2023 2:06 AM EDT documented in this encounter Results * Cardiac Device Check - Remote (02/25/2023 2:06 AM EDT) Anatomical Region Laterality Modality Other 02/25/2023 2:06 AM EDT Garrett Benson MD IMPLANTABLE CARDIAC DEVICE documented in this encounter Visit Diagnoses Not on filedocumented in this encounter Care Teams Cnmt Relationship Specialty Start Date End Date Radha Mckeon MD [address] [place] [address] PCP - General 09/23/10 documented as of this encounter
--- OUTSIDE RECORDS SUMMARY | 2024-07-24 17:21 | XMS_ITS | Encounter Summary ---
Author Organization [facility] [place] [address] Care Team Providers Care Telemedicine Physician Name Role Phone Radha Mckeon MD Primary Care Provider [phone] Encounter Details Date Type Department Care Team (Late st Contact Info) Description 03/05/2023 Telephone Cardiology at [address] [address] Margarette Ho, RN Social History Tobacco Use Types Packs/Day [...] in a fci (including now)? No 04/01/2022 Sex and Gender Information Value Date Recorded Sex Assigned at Not on file Gender Identity Not on file Sexual Orientation Not on file documented as of this encounter Miscellaneous Notes * Telephone Encounter - Margarette Ho RN - 03/05/2023 4:56 PM EDT Pt called and left vm on nurses line today for Diogo CANDELARIO to advise Mr. Robb that he has gone back to taking a full dose of the Metoprolol now instead of the half dose that he was recommended to try to reduce. Pt has suffered ? TIA and felt it may be related to having reduced his Metoprolol so he is going back up on this dose to 100 mg daily from 50 mg daily. Pt would appreciate speaking with Diogo CANDELARIO if possible. Will forward this message to Diogo CANDELARIO for further advisement. documented in this encounter Plan of Treatment Upcoming Encounters Date Type Department Care Team (Late st Contact Info) Description 08/18/2024 11:00 AM EDT Hospital Encounter Non-[place] [address] Arrived 02/22/2025 1:30 PM EDT Appointment Hematology [place] [address] 02/22/2025 2:30 PM EDT Office Visit Hematology [place] [address] Ellis Childers MD [facility] DR HEMATOLOGY [place] [address] Felicita Landa APRN [facility] [address] HEMATOLOGY [place] [address] documented as of this encounter Visit Diagnoses Not on filedocumented in this encounter Care Teams Telemedicine Physician Relationship Specialty Start Date End Date Radha Mckeon MD [address] [place] [address] PCP - General 09/23/10 documented as of this encounter
--- OUTSIDE RECORDS SUMMARY | 2024-07-24 17:21 | XMS_ITS | Encounter Summary ---
Author Organization [facility] [place] [address] Care Team Providers Care Table Inspector Name Role Phone Radha Mckeon MD Primary Care Provider [phone] Encounter Details Date Type Department Care Team (Latest Contact Info) Description 01/25/2023 Travel Social History Tobacco Use Types Packs/Day [...] place to sleep or slept in a residential (including now)? No 04/01/2022 Sex and Gender Information Value Date Recorded Sex Assigned at Not on file Gender Identity Not on file Sexual Orientation Not on file documented as of this encounter Plan of Treatment Upcoming Encounters Date Type Department Care Team (Late st Contact Info) Description 08/18/2024 11:00 AM EDT Hospital Encounter [place] [address] Arrived 02/22/2025 1:30 PM EDT Appointment Hematology and Oncology at [place] [address] 02/22/2025 2:30 PM EDT Office Visit Hematology and Oncology at [place] [address] Ellis Childers MD [facility] [address] [place] [address] Felicita Landa APRN [facility] [address] [place] [address] documented as of this encounter Visit Diagnoses Not on filedocumented in this encounter Care Teams Table Inspector Relationship Specialty Start Date End Date Radha Mckeon MD [address] [place] [address] PCP - General 09/23/10 documented as of this encounter
--- OUTSIDE RECORDS SUMMARY | 2024-07-24 17:21 | XMS_ITS | Encounter Summary ---
Author Organization [facility] [place] [address] Care Team Providers Care Procedure Analyst Name Role Phone Radha Mckeon MD Primary Care Provider [phone] Encounter Details Date Type Department Care Team (Latest Contact Info) Description 04/26/2023 11:00 AM EDT - 04/26/2023 11:59 PM EDT Hospital Encounter Non-[place] [address] Discharge Disposition: Home Social History Tobacco Use [...] 500 mg tablet 500 mg. prn 12/24/2021 finasteride (Proscar) 5 mg tablet Take 5 [...] QD 04/23/2020 fluticasone propionate (FLONASE) 50 mcg/actuation [place], Suspension INSTILL 1SPRAY IN EACH NOSTRIL TWICE [...] AM EDT Hospital Encounter Non-[place] [address] Arrived 02/22/2025 1:30 PM EDT Appointment Hematology [place] [address] 02/22/2025 2:30 PM EDT Office Visit Hematology [place] [address] Ellis Childers MD [facility] DR HEMATOLOGY [place] [address] Felicita Landa APRN [facility] HEMATOLOGY [place] [address] documented as of this encounter Procedures Procedure Name Priority Date/Time Associated Diagnosis Comments PRG ILR INTERROGATION REMOTE UP TO 30 DAYS Routine 04/09/2023 2:05 AM EDT documented in this encounter Results * Cardiac Device Check - Remote (04/09/2023 2:05 AM EDT) Anatomical Region Laterality Modality Other 04/09/2023 2:05 AM EDT Omar Corcoran MD IMPLANTABLE CARDIAC DEVICE documented in this encounter Visit Diagnoses Not on filedocumented in this encounter Care Teams Procedure Analyst Relationship Specialty Start Date End Date Radha Mckeon MD [address] [place] [address] PCP - General 09/23/10 documented as of this encounter
--- OUTSIDE RECORDS SUMMARY | 2024-07-24 17:21 | XMS_ITS | Encounter Summary ---
Author Organization [facility] [place] [address] Care Team Providers Care Talent Director Name Role Phone Radha Mckeon MD Primary Care Provider [phone] Reason for Referral * Physical Therapy (Routine) - Closed Specialty Diagnoses / Procedures Referred By Becki guillory Referred To Contact Physical Therapy Diagnoses History of lumbar fusion Chronic midline low back pain without sciatica Fermin Oliveira PA [facility] [address] Physical Therapy, [address] [address] Referral ID Status Reason Start Date Expiration Date V isits Requested Visits Authorized [id number] Closed Evaluate and Treat 09/18/2022 03/17/2023 12 12 Encounter Details Date Type Department Care Team (Late st Contact Info) Description 09/18/2022 Orders Only [place] [address] Sulema Gaines LPN History of lumbar fusion; Chronic midline low back pain without sciatica Social History Tobacco Use Types Packs/Day Years [...] AM EDT Hospital Encounter [place] [address] Arrived 02/22/2025 1:30 PM EDT Appointment [place]ology [place] [address] 02/22/2025 2:30 PM EDT Office Visit [place]ematology [place] [address] Ellis Childers MD [facility] DR [place] [address] Felicita Landa APRN [facility] [place] [address] Scheduled Referrals Name Type Priority Associated Diagnoses Orde r Schedule Referral to Physical Therapy Outpatient Referral Routine History of lumbar fusion Chronic midline low back pain without sciatica Ordered: 09/18/2022 documented as of this encounter Procedures Procedure Name Priority Date/Time Associated Diagnosis Comments CARDIAC DEVICE CHECK - REMOTE Routine 11/08/2022 7:05 PM EST documented in this encounter Results * Cardiac Device Check - Remote (11/08/2022 7:05 PM EST) Anatomical Region Laterality Modality Other 11/08/2022 7:05 PM EST Garrett Benson MD IMPLANTABLE CARDIAC DEVICE documented in this encounter Visit Diagnoses Diagnosis History of lumbar fusion Chronic midline low back pain without sciatica documented in this encounter Care Teams Talent Director Relationship Specialty Start Date End Date Radha Mckeon MD [address] [place] [address] PCP - General 09/23/10 documented as of this encounter
--- OUTSIDE RECORDS SUMMARY | 2024-07-24 17:21 | XMS_ITS | Encounter Summary ---
Author Organization [facility] [place] [address] Care Team Providers Care Certified Dietary Manager Name Role Phone Radha Mckeon MD Primary Care Provider [phone] Encounter Details Date Type Department Care Team (Late st Contact Info) Description 12/04/2022 Telephone Cardiology at [address] [address] Margarette Ho, RN Social History [...] Telephone Encounter - Margarette Ho RN - 12/04/2022 4:41 PM EST Pt called to report that he has been having nearly daily dizziness for the past few months and is noticing an increase in frequency of episodes. Pt denies any CP, SOB or syncope. Pt reports that he has an ILR as well but feels that it may no longer be recording on his phone as he previously thought. Pt is looking to speak with Kike Robb or Dr. Byrd. Advised that Dr. Byrd is no longer seeing pt and Diogo is off today. Advised pt that he needs to schedule an appt to which he has agreed. Advised pt that should he have any worsening symptoms to please go to the nearest ER for evaluation. Pt in agreement. Transferred call to scheduling. Will send message to Kike CANDELARIO as update. documented in this encounter Plan of Treatment Upcoming Encounters Date Type Department Care Team (Late st Contact Info) Description 08/18/2024 11:00 AM EDT Hospital Encounter [place] [address] Arrived 02/22/2025 1:30 PM EDT Appointment Hematology [place] [address] 02/22/2025 2:30 PM EDT Office Visit Hematology [place] [address] Ellis Childers MD [facility] [place] [address] Felicita Landa APRN [facility] [address] [place] [address] documented as of this encounter Visit Diagnoses Not on filedocumented in this encounter Care Teams Certified Dietary Manager Relationship Specialty Start Date End Date Radha Mckeon MD [address] [place] [address] PCP - General 09/23/10 documented as of this encounter
--- OUTSIDE RECORDS SUMMARY | 2024-07-24 17:21 | XMS_ITS | Encounter Summary ---
Author Organization [facility] [address] Care Team Providers Care Technology Officer Name Role Phone Radha Mckeon MD Primary Care Provider [phone] Encounter Details Date Type Department Care Team (Latest Contact Info) Description 08/26/2022 Travel Social History Tobacco Use Types Packs/Day [...] AM EDT Hospital Encounter Non-Invasive [place] [address] Arrived 02/22/2025 1:30 PM EDT Appointment Hematology and Oncology at [place] [address] 02/22/2025 2:30 PM EDT Office Visit Hematology and Oncology at [place] [address] Ellis Childers MD [facility] DR [place] [address] Felicita Landa APRN [facility] [address] [place] [address] documented as of this encounter Visit Diagnoses Not on filedocumented in this encounter Care Teams Technology Officer Relationship Specialty Start Date End Date Radha Mckeon MD [address] [place] [address] PCP - General 09/23/10 documented as of this encounter
--- OUTSIDE RECORDS SUMMARY | 2024-07-24 17:21 | XMS_ITS | Encounter Summary ---
Author Organization [facility] [place] [address] Care Team Providers Care Poultry Process Worker Name Role Phone Radha Mckeon MD Primary Care Provider [phone] Encounter Details Date Type Department Care Team (Latest Contact Info) Description 01/26/2023 11:00 AM EDT - 01/26/2023 11:59 PM EDT Hospital Encounter Non-[place] [address] Discharge Disposition: Home Social History Tobacco Use [...] in a mcfp (including now)? No 04/01/2022 Sex and Gender [...] QD 04/23/2020 fluticasone propionate (FLONASE) 50 mcg/actuation [place], Suspension INSTILL 1SPRAY IN EACH NOSTRIL TWICE [...] AM EDT Hospital Encounter Non-[place] [address] Arrived 02/22/2025 1:30 PM EDT Appointment Hematology [place] [address] 02/22/2025 2:30 PM EDT Office Visit [place] [address] Ellis Childers MD [facility] DR [place] [address] Felicita Landa APRN [facility] [place] [address] documented as of this encounter Procedures Procedure Name Priority Date/Time Associated Diagnosis Comments PRG ILR INTERROGATION REMOTE UP TO 30 DAYS Routine 01/25/2023 2:08 AM EDT documented in this encounter Results * Cardiac Device Check - Remote (01/25/2023 2:08 AM EDT) Anatomical Region Laterality Modality Other 01/25/2023 2:08 AM EDT Sera Arteaga MD IMPLANTABLE CARDIAC DEVICE documented in this encounter Visit Diagnoses Not on filedocumented in this encounter Care Teams Poultry Process Worker Relationship Specialty Start Date End Date Radha Mckeon MD [address] [place] [address] PCP - General 09/23/10 documented as of this encounter
--- OUTSIDE RECORDS SUMMARY | 2024-07-24 17:21 | XMS_ITS | Encounter Summary ---
Author Organization [facility] [place] [address] Care Team Providers Care A&P Mechanic Name Role Phone Radha Mckeon MD Primary Care Provider [phone] Encounter Details Date Type Department Care Team (Latest Contact Info) Description 05/03/2023 Travel Social History Tobacco Use Types Packs/Day [...] AM EDT Hospital Encounter Non-[place] [address] Arrived 02/22/2025 1:30 PM EDT Appointment Hematology and Oncology at [place] [address] 02/22/2025 2:30 PM EDT Office Visit Hematology and Oncology at [place] [address] Ellis Childers MD [facility] [address] [place] [address] Felicita Landa APRN [facility] [address] [place] [address] documented as of this encounter Visit Diagnoses Not on filedocumented in this encounter Care Teams A&P Mechanic Relationship Specialty Start Date End Date Radha Mckeon MD [address] [place] [address] PCP - General 09/23/10 documented as of this encounter
--- OUTSIDE RECORDS SUMMARY | 2024-07-24 17:21 | XMS_ITS | Encounter Summary ---
Author Organization [facility] [place] [address] Care Team Providers Care Stock Layer Name Role Phone Radha Mckeon MD Primary Care Provider [phone] Encounter Details Date Type Department Care Team (Late st Contact Info) Description 08/27/2022 Notes Only [facility] [place] [address] Maricarmen Mcgee, RN Social History Tobacco Use Types Packs/Day [...] as of this encounter Progress Notes * Maricarmen Mcgee RN - 08/27/2022 9:09 AM EDT Faxed 08/26/22 office note by Fermin Oliveira PA to Kalina Alejandro PT at fax # [phone] as planned to assure they had most current cli ical info for pending PT appt. Received fax receipt. documented in this encounter Plan of Treatment Upcoming Encounters Date Type Department Care Team (Late st Contact Info) Description 08/18/2024 11:00 AM EDT Hospital Encounter Non-[place] [address] Arrived 02/22/2025 1:30 PM EDT Appointment Hematology [place] [address] 02/22/2025 2:30 PM EDT Office Visit Hematology [place] [address] Ellis Childers MD [facility] [place] [address] Felicita Landa APRN [facility] [place] [address] documented as of this encounter Visit Diagnoses Not on filedocumented in this encounter Care Teams Stock Layer Relationship Specialty Start Date End Date Radha Mckeon MD [address] [place] [address] PCP - General 09/23/10 documented as of this encounter
--- OUTSIDE RECORDS SUMMARY | 2024-07-24 17:21 | XMS_ITS | Encounter Summary ---
Author Organization [facility] [place] [address] Care Team Providers Care Accountant Manager Name Role Phone Radha Mckeon MD Primary Care Provider [phone] Encounter Details Date Type Department Care Team (Late st Contact Info) Description 01/07/2023 Notes Only Cardiology at [address] [id number] Lily Theodore, RN Social History Tobacco Use Types Packs/Day [...] in a jail (including now)? No 04/01/2022 Sex and Gender Information Value Date Recorded Sex Assigned at Not on file Gender Identity Not on file Sexual Orientation Not on file documented as of this encounter Progress Notes * Lily Theodore RN - 01/07/2023 4:23 PM EST Images from the original note were not included. Pt called the device clinic because he has not been able to get his ILR monitor to transmit to us. I walked him through this process and we successful got it to work. It appears he has hit the symptom activator 4 times since last connection. Only 2 symptoms have an ECG to review. One on December 15, 2022-appears regular as well with rates in the 60s One on December 20, 2022- appears regular rates 60s-70s He said that he gets these dizzy spells and has to stop what he is doing and they usually pass within 2 minutes. He said it happens multiple times a week and there is no pattern to these episodes. [place]est[place] they can happen while he is at work and he will lean against the wall for a couple minutes. He also states these happens when he is sitting at home. He denies passing out. Current ECG: Pt is scheduled to see Diogo CANDELARIO on January 25, 2023 Will forward this to him documented in this encounter Plan of Treatment Upcoming Encounters Date Type Department Care Team (Late st Contact Info) Description 08/18/2024 11:00 AM EDT Hospital Encounter Non-[place] [address] Arrived 02/22/2025 1:30 PM EDT Appointment Hematology [place] [phone] 02/22/2025 2:30 PM EDT Office Visit Hematology [place] [phone] Ellis Childers MD [facility] [address] [place] [address] Felicita Landa APRN [facility] [address] [place] [address] documented as of this encounter Visit Diagnoses Not on filedocumented in this encounter Care Teams Accountant Manager Relationship Specialty Start Date End Date Radha Mckeon MD [address] [place] [address] PCP - General 09/23/10 documented as of this encounter
--- OUTSIDE RECORDS SUMMARY | 2024-07-24 17:21 | XMS_ITS | Encounter Summary ---
Author Organization [facility] [place] [address] Care Team Providers Care Beauty Counselor Name Role Phone Radha Mckeon MD Primary Care Provider Encounter Details Date Type Department Care Team (Latest Contact Info) Description 02/25/2023 3:00 PM EDT - 02/25/2023 11:59 PM EDT Hospital Encounter [place]ematology [place] [address] Thrombocytopenia; History of ITP Discharge Disposition: Home Social History Tobacco Use [...] place to sleep or slept in a fdc (including now)? No 04/01/2022 Sex and Gender [...] QD 04/23/2020 fluticasone propionate (FLONASE) 50 mcg/actuation Sayre, Suspension INSTILL 1SPRAY IN EACH NOSTRIL TWICE [...] AM EDT Hospital Encounter Non[place] [address] Arrived 02/22/2025 1:30 PM EDT Appointment Hematology [place] [address] 02/22/2025 2:30 PM EDT Office Visit Hematology and Oncology at [facility] [place] [address] Ellis Childers MD [facility] [address] [place] [address] Felicita Landa APRN [facility] [place] [address] documented as of this encounter Procedures Procedure Name Priority Date/Time Associated Diagnosis Comments HEMOGRAM Routine 02/25/2023 3:19 PM EDT Thrombocytopenia History of ITP DIFFERENTIAL, AUTOMATED Routine 02/25/2023 3:19 PM EDT Thrombocytopenia History of ITP HC CBC,PLT & AUTO DIFF Routine 02/25/2023 3:19 PM EDT Thrombocytopenia History of ITP documented in this encounter Results * Differential, Automated (02/25/2023 3:19 PM EDT) Neutrophil % 73.1 % [facility] Neutrophil Absolute 4.83 1.70 - 6.10 x10(3)/[facility] Lymph % 15.7 % [facility] Lymphocytes Abs 1.0 0.9 - 3.2 x10(3)/[facility] Monocyte % 8.3 % [facility] Monocyte Abs 0.6 0.3 - 0.9 x10(3)/[facility] Eos % 1.8 % [facility] Eosinophils Abs 0.1 0.0 - 0.4 x10(3)/[facility] Basophil % 0.8 % [facility] Baso Absolute 0.0 0.0 - 0.1 x10(3)/[facility] Immature Gran % 0.30 % [facility] Comment: Immature granulocytes(IG's)percentage and absolute count will include metamyelocytes, myelocytes, and promyelocytes. Blood smears from CBCs yielding IG's will be scanned manually for concordance. If this scan disagrees with the automated IG or if promyelocytes are noted, a manual differential will be performed. Immature Gran Absolute 0.02 0.00 - 0.04 x10(3)/[facility] Blood 02/25/2023 3:19 PM EDT 02/25/2023 3:28 PM EDT Narrative Resulting Agency Comment Spec In Lab Ellis Childers MD HEMATOLOGY ORDER DELICIA Performing Organization Address City/[facility] [address]/ZIP Co de Phone Number [facility] [place] [address] * (ABNORMAL) Hemogram (02/25/2023 3:19 PM EDT) White Blood Cell 6.6 4.0 - 9.5 x10(3)/[facility] Red Blood Cell 4.66 4.58 - 5.54 x10(6)/[facility] Hemoglobin 14.3 13.7 - 16.5 g/dL [facility] Hematocrit 42.2 40.5 - 48.5 % [facility] Mean Cell Volume 90.6 82.9 - 93.1 fL [facility] Mean Cell Hemoglobin 30.7 27.5 - 32.1 pg [facility] Mean Cell Hemoglobin Concentration 33.9 32.0 - 35.7 g/dL [facility] Platelet 93(L) 145 - 357 x10(3)/[facility] RDW Standard Deviation 39.8 36.0 - 45.0 fL [facility] RDW coefficient of variation 11.9 11.4 - 13.8 % [facility] Mean Platelet Volume 11.1 7.6 - 12.9 fL [facility] NRBC% auto 0.0 % [facility] NRBC Absolute 0.000 0.000 - 0.000 x10(3)/[facility] Blood 02/25/2023 3:19 PM EDT 02/25/2023 3:28 PM EDT Narrative Resulting Agency Comment Spec In Lab Ellis Childers MD HEMATOLOGY ORDER DELICIA Performing Organization Address City/[facility] [address]/ZIP Co de Phone Number [facility] [place] [address] documented in this encounter Visit Diagnoses Diagnosis Thrombocytopenia Thrombocytopenia, unspecified History of ITP Personal history of diseases of blood and blood-forming organs documented in this encounter Care Teams Beauty Counselor Relationship Specialty Start Date End Date Radha Mckeon MD [address] [place] [address] PCP - General 09/23/10 documented as of this encounter
--- OUTSIDE RECORDS SUMMARY | 2024-07-24 17:21 | XMS_ITS | Encounter Summary ---
Author Organization [place] [address] Care Team Providers Care Manager Technical Services Name Role Phone Radha Mckeon MD Primary Care Provider [phone] Encounter Details Date Type Department Care Team (Late st Contact Info) Description 11/10/2022 Telephone [facility] [place] [address] Marissa Burnette Social History Tobacco Use Types Packs/Day Years [...] encounter Miscellaneous Notes * Telephone Encounter - Marissa Burnette - 11/10/2022 1:09 PM EST Returned patients voicemail left on [employer] line regarding paperwork. Patient asked if he could callback. I gave him the [phone] number and advised that when prompted to pick the Spine nursing line not New Patient line. documented in this encounter Plan of Treatment Upcoming Encounters Date Type Department Care Team (Late st Contact Info) Description 08/18/2024 11:00 AM EDT Hospital Encounter Non-Invasive [place] [phone] Arrived 02/22/2025 1:30 PM EDT Appointment H[place]ology [place] [phone] 02/22/2025 2:30 PM EDT Office Visit H[place]ology [place] [address] Ellis Childers MD [facility] DR HEMATOLOGY [place] [address] Felicita Landa APRN [facility] DR HEMATOLOGY [place] [address] documented as of this encounter Visit Diagnoses Not on filedocumented in this encounter Care Teams Manager Technical Services Relationship Specialty Start Date End Date Radha Mckeon MD [address] [place] [address] PCP - General 09/23/10 documented as of this encounter
--- OUTSIDE RECORDS SUMMARY | 2024-07-24 17:21 | XMS_ITS | Encounter Summary ---
Author Organization [facility] Address [facility] [place] [address] Care Team Providers Care Mobile Ui Developer Name Role Phone Radha Mckeon MD Primary Care Provider [phone] Reason for Visit * Reason Comments Follow-up Encounter Details Date Type Department Care Team (Late st Contact Info) Description 08/26/2022 11:45 AM EDT Office Visit [facility] [place] [address] Fermin Oliveira PA [facility] [place] [address] Radiculopathy, unspecified spinal region Social History Tobacco [...] - Inhaled Oxygen Concentration - - Weight 78 kg (172 lb) 08/26/2022 11:37 AM EDT Height 182.9 cm (6') 08/26/2022 11:37 AM EDT Body Mass Index 23.33 08/26/2022 11:37 AM EDT documented in this encounter Progress Notes * Fermin Oliveira PA - 08/26/2022 11:45 AM EDT Images from the original note were not included. [facility] Fermin Oliveira PA-C Dear Colleagues, I had the pleasure of seeing this patient at the [facility] for evaluation. HPI: Date of Surgery: 05/19/22 Surgery: C4-6 ACDF for left upper extremity pain Surgeon: Dr. Clayton HPI: Malik is a 72 year old male who returns in scheduled 3 month follow up from above procedure. He is overall doing well and reports that his arm symptoms have resolved. He does report some left sided, band-like, neck pain that worsens with specific movements. He has returned to work. He continues to have some mild swallowing difficulties. He is scheduled to start physical therapy in the near future. Medications and allergies: reviewed and can be found in eDH Physical Exam: Resting comfortably in no acute distress. Ambulates without assistive device. He has increased painwith leftward rotation. He demonstrates full strength and normal sensation throughout bilateral upper extremities. Imaging: Reviewed imaging obtained today which shows stable appearance of C4-6 ACDF hardware without evidence of failure, loosening or complication. No dynamic instability between flexion and extension views. Assessment: Malik is a 72 year old male who returns to clinic in scheduled 3 month follow up for C4-6 ACDF for which he is doing quite well. Outside of some mild swallowing difficulties and left neck pain he is doing very well. His pain seems to be more muscular and likely related to muscle guarding and explained that PT should help to improve this. He is already scheduled for this and he has returned to work. We will plan to follow up at the 1 year trudi from date of surgery where XR will be needed prior. He will follow up sooner if symptoms change. He does express some interest in treatment for his low back and sciatic symptoms. Plan: 1) Follow up 1 year from date of surgery with XR prior. Sooner if symptoms change. Sincerely, Fermin Oliveira PA-C [facility] documented in this encounter Plan of Treatment Upcoming Encounters Date Type Department Care Team (Late st Contact Info) Description 08/18/2024 11:00 AM EDT Hospital Encounter Non-Invasive [place] [address] Arrived 02/22/2025 1:30 PM EDT Appointment Hematology [place] [address] 02/22/2025 2:30 PM EDT Office Visit Hematology [place] [phone] Ellis Childers MD [facility] [address] [place] [address] Felicita Landa APRN [facility] [address] [place] [address] documented as of this encounter Visit Diagnoses Diagnosis Radiculopathy, unspecified spinal region documented in this encounter Care Teams Mobile Ui Developer Relationship Specialty Start Date End Date Radha Mckeon MD [address] [place] [address] PCP - General 09/23/10 documented as of this encounter
--- OUTSIDE RECORDS SUMMARY | 2024-07-24 17:21 | XMS_ITS | Encounter Summary ---
Author Organization [facility] [place] [address] Care Team Providers Care Student Finance Specialist Name Role Phone Radha Mckeon MD Primary Care Provider [phone] Encounter Details Date Type Department Care Team (Late st Contact Info) Description 08/19/2022 10:30 AM EDT Office Visit Hematology [place] [address] Ellis Childers MD [facility] [place] [address] Thrombocytopenia; History of ITP Social History Tobacco Use Types Packs/Day Years [...] Sign Reading Time Taken Comments Blood Pressure 148/80 08/19/2022 11:02 AM EDT Pulse 53 08/19/2022 11:02 AM EDT Temperature 36.2 ??C (97.2 ??F) 08/19/2022 11:02 AM E DT Respiratory Rate 16 08/19/2022 11:02 AM EDT Oxygen Saturation 99% 08/19/2022 11:02 AM EDT Inhaled Oxygen Concentration - - Weight 78.3 kg (172 lb 9.9 oz) 08/19/2022 11:02 AM EDT Height 183.5 cm (6' 0.24) 08/19/2022 11:02 AM E DT Body Mass Index 23.25 08/19/2022 11:02 AM EDT documented in this encounter Progress Notes * Ellis Guy MD - 08/19/2022 10:30 AM EDT [facility] HEMATOLOGY FOLLOW UP VISIT NOTE DATE OF VISIT : 08/19/22 REASON FOR VISIT: F/up for thrombocytopenia HISTORY OF PRESENT ILLNESS Malik Machado is a 72 y.o. male with PMH of A. Fib, on anticoagulation, hypothyroidism, cervical radiculopathy, chronic pain syndrome, migrain, BPH,seizure, referred for evaluation of thrombocytopenia Presentation: Noted to have chronic thrombocytopenia on routine Pre Op labs for surgical decompression of cervical foraminal stenosis. On my review of data : He is noted to have chronic thrombocytopenia since 2013 platelet count ranging between 139 -69k. Labs from referring MD: Most recent CBC on 03/12/2022: WBC: 4.7, normal differential, Hgb: 16, MCV: 95, platelets: 80k ?? 04/22/22: Bone marrow biopsy: ??1. ??Normocellular marrow (~50%) with complete multilineage hematopoiesis (see ? discussion) ?2. ??Iron stores are present per iron stain ?3. ??Peripheral smear with mild thrombocytopenia ?4. 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 He had recent ED visit for nose bleed. It took couple of hours to stop. He didn't have balloon placed at that time. He saw Mariya Avendaño APRN. ENT and was not recommended any cauterization. - Walks 3-4 miles a day; - No B symptoms No infections - Back pain continues to be his big issue No new health concerns - No active cardiac/resp/GI issues; Rest of the ROS: Negative PROBLEM LIST Patient Active Problem List Diagnosis ??? A-fib Overview Note: --Recurrent AF --S/P cardioversions x 3 (09/2005, 01/2006, 07/2007). --AF that has resolved spontaneously (12/2006, etc). 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 --Flecainide stopped after 4 doses due to AR/QRS prolongation, 12/2007. --Started on dofetilide 500mcg BID [...] of periodic palpitations 2015. -- Admitted to [facility] 08/27/16, with A. fib at a rate of 112 bpm on metoprolol 100 mg daily/verapamil 180 mg daily; DCCV; metoprolol increased to 150 mg daily; started Eliquis. --Echo 11/2016: EF 58%. --Repeat afib ablation 11/23/2016: Veins still isolated; posterior wall isolation performed, stage IV. ??? Hypertension Overview Note: ??? ILR at EOL - no telemetry ??? S/p C4-6 ACDF 05/19/22 (Forrest) ??? Thrombocytopenia ??? Radiculopathy of cervical region ??? Trigger middle finger of right hand ??? s/p right long finger A1 kayla release for trigger finger 05/15/21 (Dr Duong) ??? Radiculopathy of cervical region ??? Neck pain ??? Numbness and tingling in left arm ??? History of loop recorder Overview Note: ILR ??? Postoperative anemia due to acute blood loss ??? S/P right total knee arthroplasty revision - poly swab and patellar revision Moschetti 11/15/2019 ??? Thrombopenia ??? Essential hypertension ??? Paroxysmal atrial fibrillation ??? Failed total knee arthroplasty ??? Right knee pain ??? Debility ??? Lightheadedness ??? Adverse drug effects Overview Note: --Amitriptyline (palpitations), Lipitor (liver enzyme abnormalities), flecainide (AR/QRS prolongation noted 12/2007). ??? History of surgery Overview Note: --S/p pyloric stenosis surgery 1951, appendectomy 1969, right carpal tunnel surgery 1974, spinal fusion 1993 (redo back surgery 1995, 1998), umbilical hernia repair 1997, left carpal tunnel repair 2002, left elbow surgery 2004, right total knee replacement 2009. ??? S/P knee replacement Overview Note: SURGERY DATE: 01/14/2010 MICHAEL CHAVEZ MD PROCEDURE PERFORMED: Right total knee arthroplasty. IMPLANTS USED: All implants were from the [employer] total knee system. 1. A size 4 press-fit cruciate retaining porous femoral component. 2. A size 4 press- fit porous rotating platform tibial tray.3. A size 4 x 10-mm rotating platform polyethylene. 4. A 35-mm round patella. 5. Half batch of quick set cement. ??? RBBB (right bundle branch block with left anterior fascicular block) Overview Note: ??? Chronic back pain, causing disability Overview Note: --Methadone and baclofen Rx, 2011. --Currently on oxycodone. --Lumbar radiculopathy. PAST SURGICAL Hx: Past Surgical History: Procedure Laterality Date ??? [...] CURVED Procedure Date: 01/14/2010 ??? JOINT REPLACEMENT [id number] ??? PACEMAKER IMPLANT loop recorder ??? PRO ALLOGRAFT FOR SPINE SURGERY ONLY STRUCTURAL Bilateral 05/19/2022 ALLOGRAFT FOR SPINE SURGERY ONLY; STRUCTUAL (WRVU 1.81) performed by Rey Clayton MD at [facility] MAIN OR ??? PRO ANTERIOR INSTRUMENTATION 2-3 VERTEBRAL SEGMENTS Bilateral 05/19/2022 ANT. SPINAL INSTRUMENTATION, 2-3 VERTEBRA, SEGMENTED (WRVU 11.94) performed by Rey Clayton MD at [facility] MAIN OR ??? PRO ARTHRD ANT INTERDY CERVCL BELW C2 EA ADDL NTRSPC Bilateral 05/19/2022 ARTHRODESIS ANT INTERBDY CERVCL BELOW C2 EA ADDL INTRSPACE (WRVU 6.5) performed by Rey Clayton MD at [facility] MAIN OR ??? PRO ARTHRODESIS, ANT INTERBODY,DECOMPRESSION; CERVICAL BELOW C2 Bilateral 05/19/2022 ARTHRODESIS, ANT INTERBODY,DECOMPRESSION; CERVICAL BELOW C2 (WRVU 25) performed by Rey Clayton MD at [facility] MAIN OR ? ? PRO DIAGNOSTIC BONE MARROW BIOPSIES & ASPIRATIONS N/A 04/22/2022 ([facility] MSURG) BONE MARROW BIOPSY AND ASPIRATION; DIAGNOSTIC performed by Ellis Guy MD at [facility] OSC ??? PRO INCISE FINGER TENDON SHEATH Right 05/15/2021 TENDON SHEATH INCISION (TRIGGER FINGER) (WRVU 3.11) performed by Jovan Duong MD at [facility] MAIN OR ??? PRO INSERTION SUBQ CARDIAC RHYTHM MONITOR W/PRGRMG Left 08/10/2022 INSERTION, SUBQ CARDIAC RHYTHM MONITOR, INCLUDING PROGRAMMING performed by Garrett Benson MD at [facility] CATH LABS ??? PRO REMOVAL SUBCUTANEOUS CARDIAC RHYTHM MONITOR Left 08/10/2022 REMOVAL, SUBQ CARDIAC RHYTHM MONITOR performed by Garrett Benson MD at [facility] CATH LABS ??? PRO REVISE KNEE JOINT REPLACE, ALL PARTS Right 11/15/2019 @TOTAL KNEE REVISION ARTHROPLASTY, COMPLETE (WRVU 27.11) performed by Sukhjinder Jauregui MD at [facility] MAIN OR ??? XR JOINT ASPIRATION - LARGE JOINT RIGHT Right 01/02/2019 XR Fluoro Guided Joint Aspiration Large Right 01/02/2019 [facility] RAD XRAY MEDICATIONS ??? magnesium hydroxide (MILK OF MAGNESIA ORAL) ??? Xarelto 20 mg Tablet ??? oxyCODONE (Roxicodone) 5 mg Tablet ??? metoprolol succinate XL (Toprol-XL) 100 mg Tablet Sustained Release 24 hr ??? zonisamide (ZONEGRAN) 50 mg Capsule ??? Emgality Pen 120 mg/mL Pen Injector ??? pregabalin (LYRICA) 100 mg Capsule ??? lidocaine-prilocaine (EMLA) Cream ??? polyethylene glycoL (Miralax) 17 gram Powder in Packet ??? senna-docusate (Pericolace) 8.6-50 mg Tablet ??? acyclovir (ZOVIRAX) 200 mg Capsule ??? diclofenac (VOLTAREN) 1 % Gel ??? tamsulosin (Flomax) 0.4 mg Capsule ??? fluticasone propionate (FLONASE) 50 mcg/actuation [place], Suspension ??? lamoTRIgine (LAMICTAL) 25 mg Tablet ??? SUMAtriptan (IMITREX) 100 mg Tablet ??? Triamcinolone Acetonide 0.025 % Lotion ??? omeprazole (PRILOSEC) 20 mg Capsule, Delayed Release(E.C.) ??? BOTOX 200 unit Recon Soln ??? verapamil (CALAN-SR) 120 mg Tablet Sustained Release ??? levothyroxine (Synthroid) 100 mcg Tablet ??? MULTIVITAMIN W-MINERALS/LUTEIN (CENTRUM SILVER ORAL) ??? baclofen (LIORESAL) 10 mg tablet ??? simvastatin (ZOCOR) 10 mg tablet ALLERGIES/ADR Allergies Allergen Reactions ??? Zolpidem Other reaction(s): [...] Other (See Comment) PERSONAL and SOCIAL HISTORY ?? Lives in: [place], [place] (2.5 hr from [facility] [facility] is the closest hospital. ?? 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 Works as [employer] in [place]. ?? ETOH: rare ?? Smokin.5ppd x Quit 1982. ?? HIPPA Contact Permission: OK to leave voice mail on phone. FAMILY HISTORY Family History Problem Relation Age of Onset ??? Heart Disease Mother ??? Heart Disease Father ??? Cancer Brother 58 panceratic PHYSICAL EXAM VITAL SIGNS: There were no vitals taken for this visit. Vitals: 08/19/22 1102 BP: 148/80 Patient Position: Sitting Pulse: 53 Resp: 16 Temp: 36.2 ??C (97.2 ??F) TempSrc: Temporal SpO2: 99% Weight: 78.3 kg (172 lb 9.9 oz) Height: 183.5 cm (6' 0.24) ECOG PS: 1 GENERAL: Malik Machado is a well-appearing 72 y.o. male in no acute distress. HEENT: Eyes: b/l PERRL, no conjunctival pallor , no scleral icterus; Sinuses: non-tender; Oropharynx : moist , clear, No lesions, No thrush. Wears dentures; ENDOCRINE: No thyromegaly palpated. CARDIOVASCULAR: Heart with regular rate and rhythm [...] hour(s)) Hemogram Result Value Ref Range WBC 5.5 4.0 - 9.5 x10(3)/mcL RBC 4.86 4.58 - 5.54 x10(6)/mcL Hemoglobin 15.2 13.7 - 16.5 g/dL Hematocrit 44.2 40.5 - 48.5 % MCV 90.9 82.9 - 93.1 fL MCH 31.3 27.5 - 32.1 pg MCHC 34.4 32.0 - 35.7 g/dL Platelets 94 (L) 145 - 357 x10(3)/mcL RDWSD 40.0 36.0 - 45.0 fL RDWCV 12.0 11.4 - 13.8 % MPV 11.9 7.6 - 12.9 fL nRBC % Auto 0.0 % nRBC Abs Auto 0.000 0.000 - 0.000 x10(3)/mcL Differential, Automated Result Value Ref Range Neutrophils % 72.0 % Neutr Abs (ANC) 3.97 1.70 - 6.10 x10(3)/mcL Lymphocytes % 15.9 % Lymphocytes Abs 0.9 0.9 - 3.2 x10(3)/mcL Monocytes % 9.2 % Monocyte Abs 0.5 0.3 - 0.9 x10(3)/mcL Eosinophils % 2.0 % Eosinophils Abs 0.1 0.0 - 0.4 x10(3)/mcL Basophils % 0.5 % Basophils Abs 0.0 0.0 - 0.1 x10(3)/mcL Immature Gran % 0.40 % Sho Gran Abs 0.02 0.00 - [...] , we will continue active surveillance approach. # Epistaxis - saw ENT at [facility] recently. # A. Fib - follows with cardiology at [facility]. On rivaroxaban. - He had Implantable loop recorder replaced recently. # Spine issues : S/p C4-C6 ACDF surgery for left upper extremity pain. This pain has improved. He still has low back pain. Follows with pain mgmt at [facility]. # Positive CHACORTA at 1 is to 160 titer : Advised him to follow-up with his PCP RTC for f/up in 6 months . If his platelet count remains stable, we will decrease the f/ups to annual visits. I reviewed my impression and recommendations with Malik Machado and answered all the questions.. Pt agreed with the plan. Ellis Guy MD [facility] CC: Radha Mckeon MD documented in this encounter Plan of Treatment Upcoming Encounters Date Type Department Care Team (Late st Contact Info) Description 08/18/2024 11:00 AM EDT Hospital Encounter Non-[place] [address] Arrived 02/22/2025 1:30 PM EDT Appointment Hematology [place] [address] 02/22/2025 2:30 PM EDT Office Visit Hematology [place] [phone] Ellis Childers MD [facility] [place] [address] Felicita Landa APRN [facility] [place] [address] documented as of this encounter Visit Diagnoses Diagnosis Thrombocytopenia Thrombocytopenia, unspecified History of ITP Personal history of diseases of blood and blood-forming organs documented in this encounter Care Teams Student Finance Specialist Relationship Specialty Start Date End Date Radha Mckeon MD [address] [place] [address] PCP - General 09/23/10 documented as of this encounter
--- OUTSIDE RECORDS SUMMARY | 2024-07-24 17:21 | XMS_ITS | Encounter Summary ---
Author Organization [facility] [place] [address] Care Team Providers Care Leasing Manager Name Role Phone Radha Mckeon MD Primary Care Provider [phone] Encounter Details Date Type Department Care Team (Latest Contact Info) Description 08/18/2022 10:47 AM EDT - 08/18/2022 12:05 PM EDT Hospital Encounter XRay at [address] [place] [address] Rey Clayton MD [facility] [place] [address] Radiculopathy, unspecified spinal region Discharge Disposition: Home Social History Tobacco Use [...] 500 mg tablet 500 mg. prn 12/24/2021 acetaminophen (Tylenol) 500 mg tablet as needed. [...] QD 04/23/2020 fluticasone propionate (FLONASE) 50 mcg/actuation [place], Suspension INSTILL 1SPRAY IN EACH NOSTRIL TWICE [...] nightly. metoprolol succinate XL (Toprol-XL) 100 mg Tablet Sustained Release 24 hrIndications:Paroxy smal atrial fibrillation TAKE 1 AND 1/2 TABLETS BY MOUTH DAILY 135 tablet 1 01/26/2022 01/25/2023 pregabalin (LYRICA) 100 mg Capsule Take 1 capsule by mouth 2 times daily. 02/11/2021 11/29/2023 omeprazole (PRILOSEC) 20 mg Capsule, Delayed Release(E.C.) Take 20 mg by mouth 2 times daily. 10/07/2017 08/03/2023 documented as of this encounter Plan of Treatment Upcoming Encounters Date Type Department Care Team (Late st Contact Info) Description 08/18/2024 11:00 AM EDT Hospital Encounter Non-[place] [address] Arrived 02/22/2025 1:30 PM EDT Appointment Hematology [place] [address] 02/22/2025 2:30 PM EDT Office Visit [place]ology [place] [address] Ellis Childers MD [facility] [place] [address] Felicita Landa APRN [facility] [place] [address] documented as of this encounter Procedures Procedure Name Priority Date/Time Associated Diagnosis Comments XR CERVICAL SPINE FLEXION EXTENSION ONLY Routine 08/18/2022 11:09 AM EDT Radiculopathy, unspecified spinal region documented in this encounter Results * XR Cervical Spine Flexion Extension Only (08/18/2022 11:09 AM EDT) Anatomical Region Laterality Modality C-spine N/A Digital Radiogra phy Impressions 08/18/2022 3:25 PM EDT Status post C4-C6 ACDF with no evidence of cervical spine instability. Thank you for letting us participate in the care of this patient. ??If you are a health care provider and have any questions regarding this report, please contact the number below. ??For patients who have questions please contact the health critical care physician assistant that requested your imaging first. ? Electronically signed by: Librado Bethea MD, [facility] ([phone]), at 08/18/2022 3:25 PM Narrative 08/18/2022 3:25 PM EDT EXAMINATION: XR CERVICAL SPINE FLEXION EXTENSION ONLY CLINICAL HISTORY: Please do lat flex-ext films, s/p acdf TECHNIQUE: Flexion and extension views. COMPARISON: 06/20/2022 at 10:48 AM, 05/19/2022. FINDINGS: Status post ACDF at C4-C6 in unchanged alignment. No evidence of hardware loosening or complication. The cervical spine alignment is maintained on flexion and extension views. There are degenerative changes of the upper and lower cervical spine with partial disc space narrowing and facet arthropathy. Procedure Note Librado Bethea MD - 08/18/2022 EXAMINATION: XR CERVICAL SPINE FLEXION EXTENSION ONLY CLINICAL HISTORY: Please do lat flex-ext films, s/p acdf TECHNIQUE: Flexion and extension views. COMPARISON: 06/20/2022 at 10:48 AM, 05/19/2022. FINDINGS: Status post ACDF at C4-C6 in unchanged alignment. No evidence ofhardware loosening or complication. The cervical spine alignment is maintained onflexion and extension views. There are degenerative changes of the upper andlower cervical spine with partial disc space narrowing and facet arthropathy. IMPRESSION Status post C4-C6 ACDF with no evidence of cervical spine instability. Thank you for letting us participate in the care of this patient. If youare a health care provider and have any questions regarding this report,please contact the number below. For patients who have questions please contactthe health critical care physician assistant that requested your imaging first. Electronically signed by: Librado Bethea MD, [facility]([phone]), at 08/18/2022 3:25 PM Rey Clayton MD IMG DX ORDERABLES documented in this encounter Visit Diagnoses Diagnosis Radiculopathy, unspecified spinal region documented in this encounter Care Teams Leasing Manager Relationship Specialty Start Date End Date Radha Mckeon MD [address] [place] [address] PCP - General 09/23/10 documented as of this encounter
--- OUTSIDE RECORDS SUMMARY | 2024-07-24 17:21 | XMS_ITS | Encounter Summary ---
Author Organization [facility] [place] [address] Care Team Providers Care Organ Builder Name Role Phone Radha Mckeon MD Primary Care Provider Reason for Visit * Reason Onset Date Comments Questions 11/09/2022 Encounter Details Date Type Department Care Team (Late st Contact Info) Description 11/09/2022 Telephone [place] [phone] Sukhjinder Jauregui MD [facility] [address] OR[place]OP[place] [address] Questions Social History Tobacco Use Types Packs/Day Years [...] encounter Miscellaneous Notes * Telephone Encounter - Valerio Irizarry - 11/09/2022 1:49 PM EST Caller: Malik Machado or my dh is ok. Procedure: Arthroplasty/Orthopaedic History: 1.??Right TKA. Dr. Mi. 01/14/2010. 2. Right TKA Revision. Aseptic revision of the patella. Dr. Jauregui. 11/15/2019 Questions of follow up on his continued knee pain, no new injury and when is his next routine follow up needed? Swelling continues. It has not changed from last year. He works and walks 3-5 miles a day every day. Very painful going up stairs. He has a chronic state of pain that has never gone away. Questions on force, he keeps getting e-mails and has some problems with it. Works at [employer] in [place]. documented in this encounter Plan of Treatment Upcoming Encounters Date Type Department Care Team (Late st Contact Info) Description 08/18/2024 11:00 AM EDT Hospital Encounter Non-[place]vasive [place] [address] Arrived 02/22/2025 1:30 PM EDT Appointment Hematology [place] [address] 02/22/2025 2:30 PM EDT Office Visit Hematology [place] [address] Ellis Childers MD [facility] HEMATOLOGY [place] [address] Felicita Landa APRN [facility] HEMATOLOGY [place] [address] documented as of this encounter Visit Diagnoses Not on filedocumented in this encounter Care Teams Organ Builder Relationship Specialty Start Date End Date Radha Mckeon MD [address] [place] [address] PCP - General 09/23/10 documented as of this encounter
--- OUTSIDE RECORDS SUMMARY | 2024-07-24 17:21 | XMS_ITS | Encounter Summary ---
Author Organization [facility] [place] [address] Care Team Providers Care Assistant Pressman Name Role Phone Radha Mckeon MD Primary Care Provider [phone] Reason for Visit * Reason Comments Follow-up Encounter Details Date Type Department Care Team (Late st Contact Info) Description 02/25/2023 4:00 PM EDT Office Visit [place] [address] Ellis Childers MD [facility] DR HEMATOLOGY [place] [address] Felicita Landa APRN [facility] DR HEMATOLOG[place] [address] Thrombocytopenia Social History Tobacco Use Types Packs/Day [...] Sign Reading Time Taken Comments Blood Pressure 164/88 02/25/2023 4:03 PM EDT Pulse 66 02/25/2023 4:03 PM EDT Temperature 36.7 ??C (98.1 ??F) 02/25/2023 4:03 PM ED T Respiratory Rate 20 02/25/2023 4:03 PM EDT Oxygen Saturation 98% 02/25/2023 4:03 PM EDT Inhaled Oxygen Concentration - - Weight 75.2 kg (165 lb 12.6 oz) 02/25/2023 4:03 PM EDT Height 182.7 cm (5' 11.93) 02/25/2023 4:03 PM E DT Body Mass Index 22.53 02/25/2023 4:03 PM EDT documented in this encounter Progress Notes * Felicita Landa APRN - 02/25/2023 4:00 PM EDT [facility] HEMATOLOGY FOLLOW UP VISIT NOTE DATE OF VISIT : 02/25/23 REASON FOR VISIT: F/up for thrombocytopenia HISTORY [...] Machado is here for follow up visit. Had mini-stroke 2.5 weeks ago. Driving friend home and and slowed down and couldn't talk. Waited 2 days and saw neurologist. CT scan yesterday morning. He is in school- has 2 more classes and in addition he is caring for his partner who has emphysema and ETOH dependence. He is quite fatigued from all of this. - Walks 3-4 miles a day; - [...] --Flecainide stopped after 4 doses due to NV/QRS prolongation, 12/2007. --Started on dofetilide 500mcg BID [...] of periodic palpitations 2015. -- Admitted to [facility] 08/27/16, with A. fib at a [...] left arm ??? History of loop recorder - Xiaohongshu LINQII Overview Note: ILR ??? Postoperative anemia due to acute blood loss ??? S/P right total knee arthroplasty revision - poly swab and patellar revision Shania 11/15/2019 ??? Thrombopenia ??? Essential hypertension ??? Paroxysmal atrial fibrillation ??? Failed total knee arthroplasty ??? Right knee pain ??? Debility ??? Lightheadedness ??? Adverse drug effects Overview Note: --Amitriptyline (palpitations), Lipitor (liver enzyme abnormalities), flecainide (NV/QRS prolongation noted 12/2007). ??? History of surgery [...] IMPLANTS USED: All implants were from the [employer] total knee system. 1. A size 4 [...] CURVED Procedure Date: 01/14/2010 ??? JOINT REPLACEMENT [id number] ??? PACEMAKER IMPLANT loop recorder ??? PRO ALLOGRAFT FOR SPINE SURGERY ONLY STRUCTURAL Bilateral 05/19/2022 ALLOGRAFT FOR SPINE SURGERY ONLY; STRUCTUAL (WRVU 1.81) performed by Rey Clayton MD at [facility] MAIN OR ??? PRO ANTERIOR INSTRUMENTATION 2-3 VERTEBRAL SEGMENTS Bilateral 05/19/2022 ANT. SPINAL INSTRUMENTATION, 2-3 VERTEBRA, SEGMENTED (WRVU 11.94) performed by Rey Clayton MD at [facility] MAIN OR ??? PRO ARTHRD ANT INTERDY CERVCL BELW C2 EA ADDL NTRSPC Bilateral 05/19/2022 ARTHRODESIS ANT INTERBDY CERVCL BELOW C2 EA ADDL INTRSPACE (WRVU 6.5) performed by Rey Clayton MD at [facility] MAIN OR ??? PRO ARTHRODESIS, ANT INTERBODY,DECOMPRESSION; CERVICAL BELOW C2 Bilateral 05/19/2022 ARTHRODESIS, ANT INTERBODY,DECOMPRESSION; CERVICAL BELOW C2 (WRVU 25) performed by Rey Clayton MD at [facility] MAIN OR ? ? PRO DIAGNOSTIC BONE MARROW BIOPSIES & ASPIRATIONS N/A 04/22/2022 (OSC MSURG) BONE MARROW BIOPSY AND ASPIRATION; DIAGNOSTIC performed by Ellis Guy MD at [facility] OSC ??? PRO INCISE FINGER TENDON SHEATH Right 05/15/2021 TENDON SHEATH INCISION (TRIGGER FINGER) (WRVU 3.11) performed by Jovan Duong MD at [facility] MAIN OR ??? PRO INSERTION SUBQ CARDIAC RHYTHM MONITOR W/PRGRMG Left 08/10/2022 INSERTION, SUBQ CARDIAC RHYTHM MONITOR, INCLUDING PROGRAMMING performed by Garrett Benson MD at [facility] CATH LABS ??? PRO REMOVAL SUBCUTANEOUS CARDIAC RHYTHM MONITOR Left 08/10/2022 REMOVAL, SUBQ CARDIAC RHYTHM MONITOR performed by Garrett Benson MD at [facility] CATH LABS ??? PRO REVISE KNEE JOINT REPLACE, ALL PARTS Right 11/15/2019 @TOTAL KNEE REVISION ARTHROPLASTY, COMPLETE (WRVU 27.11) performed by Sukhjinder Jauregui MD at [facility] MAIN OR ??? XR JOINT ASPIRATION - LARGE JOINT RIGHT Right 01/02/2019 XR Fluoro Guided Joint Aspiration Large Right 01/02/2019 [facility] RAD XRAY MEDICATIONS ??? metoprolol succinate XL (Toprol-XL) 100 mg ER 24 hr tablet ??? magnesium hydroxide (MILK OF MAGNESIA ORAL) ??? Xarelto 20 mg Tablet ??? oxyCODONE (Roxicodone) 5 mg Tablet ??? zonisamide (ZONEGRAN) 50 mg Capsule ??? Emgality Pen 120 mg/mL Pen Injector ??? pregabalin (LYRICA) 100 mg Capsule ??? lidocaine-prilocaine (EMLA) Cream ??? polyethylene glycoL (Miralax) 17 gram Powder in Packet ??? senna-docusate (Pericolace) 8.6-50 mg Tablet ??? acyclovir (ZOVIRAX) 200 mg Capsule ??? diclofenac (VOLTAREN) 1 % Gel ??? tamsulosin (Flomax) 0.4 mg Capsule ??? fluticasone propionate (FLONASE) 50 mcg/actuation [place], Suspension ??? lamoTRIgine (LAMICTAL) 25 mg Tablet ??? SUMAtriptan (IMITREX) 100 mg Tablet ??? Triamcinolone Acetonide 0.025 % Lotion ??? omeprazole (PRILOSEC) 20 mg Capsule, Delayed Release(E.C.) ??? verapamil (CALAN-SR) 120 mg Tablet Sustained Release ??? levothyroxine (Synthroid) 100 mcg Tablet ??? MULTIVITAMIN W-MINERALS/LUTEIN (CENTRUM SILVER ORAL) ??? baclofen (LIORESAL) 10 mg tablet ??? simvastatin (ZOCOR) 10 mg tablet ??? BOTOX 200 unit Recon Soln ALLERGIES/ADR Allergies Allergen Reactions ??? Zolpidem Other [...] Flecainide Other (See Comments) Adverse effect caused NV and QRS prolongation Other reaction(s): Other (See Comments) Adverse effect caused NV and QRS prolongation Other reaction(s): Other (See Comment) PERSONAL and SOCIAL HISTORY ?? Lives in: [place], [place] ([facility] [place] is the closest hospital. ?? Work history: [...] panceratic PHYSICAL EXAM VITAL SIGNS: Blood pressure 164/88, pulse 66, temperature 36.7 ??C (98.1 ??F), temperature source Temporal, resp. rate 20, height 182.7 cm (5' 11.93), weight 75.2 kg (165 lb 12.6 oz), SpO2 98 %. Vitals: 02/25/23 1603 BP: 164/88 Patient Position: Sitting Pulse: 66 Resp: 20 Temp: 36.7 ??C (98.1 ??F) TempSrc: Temporal SpO2: 98% Weight: 75.2 kg (165 lb 12.6 oz) Height: 182.7 cm (5' 11.93) ECOG PS: 1 GENERAL: Malik Machado is [...] hour(s)) Hemogram Result Value Ref Range WBC 6.6 4.0 - 9.5 x10(3)/mcL RBC 4.66 4.58 - 5.54 x10(6)/mcL Hemoglobin 14.3 13.7 - 16.5 g/dL Hematocrit 42.2 40.5 - 48.5 % MCV 90.6 82.9 - 93.1 fL MCH 30.7 27.5 - 32.1 pg MCHC 33.9 32.0 - 35.7 g/dL Platelets 93 (L) 145 - 357 x10(3)/mcL RDWSD 39.8 36.0 - 45.0 fL RDWCV 11.9 11.4 - 13.8 % MPV 11.1 7.6 - 12.9 fL nRBC % Auto 0.0 % nRBC Abs Auto 0.000 0.000 - 0.000 x10(3)/mcL Differential, Automated Result Value Ref Range Neutrophils % 73.1 % Neutr Abs (ANC) 4.83 1.70 - 6.10 x10(3)/mcL Lymphocytes % 15.7 % Lymphocytes Abs 1.0 0.9 - 3.2 x10(3)/mcL Monocytes % 8.3 % Monocyte Abs 0.6 0.3 - 0.9 x10(3)/mcL Eosinophils % 1.8 % Eosinophils Abs 0.1 0.0 - 0.4 x10(3)/mcL Basophils % 0.8 % Basophils Abs 0.0 0.0 - 0.1 [...] continue active surveillance approach. His PLT are 93k today and stable from prior visits. In the setting of his evaluation of TIA, we will await # Epistaxis - saw ENT at [facility] # A. Fib - follows with cardiology at [facility]. On rivaroxaban. - He had Implantable loop recorder replaced recently. # Spine issues : S/p C4-C6 ACDF surgery for left upper extremity pain. This pain has improved. He still has low back pain. Follows with pain mgmt at [facility]. # Positive CHACORTA at 1 is to 160 titer : Advised him to follow-up with his PCP # TIA- following with neurology. CT scan yesterday. Results pending. RTC for f/up in 6 months, sooner if needed. I reviewed my impression and recommendations with Malik Machado and answered all the questions. Ptagreed with the plan. Felicita Landa, MSN, PARTS EXPEDITER [facility] Hematology/[place] [address] Pager: [phone] CC: Radha Mckeon MD documented in this encounter Plan of Treatment Upcoming Encounters Date Type Department Care Team (Late st Contact Info) Description 08/18/2024 11:00 AM EDT Hospital Encounter Non-Invasive Cardiology Lab [place] [phone] Arrived 02/22/2025 1:30 PM EDT Appointment Hematology and Oncology at [place] [address] 02/22/2025 2:30 PM EDT Office Visit [place]ematology [place] [address] Ellis Childers MD [facility] DR HEMATOLOGY [place] [address] Felicita Landa APRN [facility] DR HEMATOLOGY [place] [address] documented as of this encounter Visit Diagnoses Diagnosis Thrombocytopenia Thrombocytopenia, unspecified documented in this encounter Care Teams Assistant Pressman Relationship Specialty Start Date End Date Radha Mckeon MD [address] [place] [address] PCP - General 09/23/10 documented as of this encounter
--- OUTSIDE RECORDS SUMMARY | 2024-07-24 17:21 | XMS_ITS | Encounter Summary ---
Author Organization [facility] [place] [address] Care Team Providers Care Booth Supervisor Name Role Phone Radha Mckeon MD Primary Care Provider [phone] Reason for Visit * Reason Onset Date Comments Medication Refill 04/20/2023 Encounter Details Date Type Department Care Team (Late st Contact Info) Description 04/20/2023 Refill Cardiology at [address] [address] Diogo Robb PA [facility] [place] [address] Medication Refill Social History Tobacco Use Types [...] AM EDT Hospital Encounter Non-[place] [address] Arrived 02/22/2025 1:30 PM EDT Appointment Hematology [place] [address] 02/22/2025 2:30 PM EDT Office Visit Hematology [place] [address] Ellis Childers MD [facility] DR [place] [address] Felicita Landa APRN [facility] DR [place] [address] documented as of this encounter Visit Diagnoses Diagnosis Paroxysmal atrial fibrillation Atrial fibrillation documented in this encounter Care Teams Booth Supervisor Relationship Specialty Start Date End Date Radha Mckeon MD [address] [place] [address] PCP - General 09/23/10 documented as of this encounter
--- OUTSIDE RECORDS SUMMARY | 2024-07-24 17:21 | XMS_ITS | Encounter Summary ---
Author Organization [facility] [place] [address] Care Team Providers Care Mattress Finisher Name Role Phone Radha Mckeon MD Primary Care Provider [phone] Encounter Details Date Type Department Care Team (Late st Contact Info) Description 02/04/2023 Telephone Cardiology at [address] [address] Franci Pan, RN Social History Tobacco Use Types Packs/Day [...] encounter Miscellaneous Notes * Telephone Encounter - Franci Pan RN - 02/04/2023 3:26 PM EDT RTC to patient who reports he decreased his metoprolol to 50 mg daily last week per Diogo Robb and is worried he may have had a mini stroke on Wednesday. Patient reports he was driving and suddenly couldn't speak or find his words. Patient's friend said he seemed out of it and just staring ahead for a couple of minutes. Patient reports when he came to he just didn't feel right, patient reports he pulled over and had his friend drive. Patient denies, cp, dizziness, sob, palpitations or any other symptoms prior to event. States it came on very suddenly and only lasted a few minutes. Patient is concerned this may have been caused by the decrease in his metoprolol an is inquiring ifhe should increase it back to 100 mg daily. Has an appointment with his neurologist at [facility] tomorrow regarding migraines. Patient states he has a monitor for his ILR, but is not sure how to set it up. Number given to patient for the device clinic as well. Recommended to patient that he should be evaluated in the emergency should these symptoms return and to discuss with his neurologist during appt tomorrow. Patient verbalized understanding. Franci Pan RN Cardiology Clinic at [facility] [address] documented in this encounter Plan of Treatment Upcoming Encounters Date Type Department Care Team (Late st Contact Info) Description 08/18/2024 11:00 AM EDT Hospital Encounter Non-[place] [address] Arrived 02/22/2025 1:30 PM EDT Appointment Hematology and Oncology at [address] 02/22/2025 2:30 PM EDT Office Visit Hematology and Oncology at [place] [address] Ellis Childers MD [facility] DR [place] [address] Felicita Landa APRN [facility] DR [place] [address] documented as of this encounter Visit Diagnoses Not on filedocumented in this encounter Care Teams Mattress Finisher Relationship Specialty Start Date End Date Radha Mckeon MD [address] [place] [address] PCP - General 09/23/10 documented as of this encounter
--- OUTSIDE RECORDS SUMMARY | 2024-07-24 17:21 | XMS_ITS | Encounter Summary ---
Author Organization [facility] [place] [address] Care Team Providers Care Forcer Maker Name Role Phone Radha Mckeon MD Primary Care Provider [phone] Reason for Visit * Consultation (Routine) - Closed Specialty Diagnoses / Procedures Referred By eBcki guillory Referred To Contact Podiatry Diagnoses painful corn Sera Lunsford MD [address] [place] [address] Joaquin Metzger DPM [facility] [place] [address] Referral ID Status Reason Start Date Expiration Date Visits Re quested Visits Authorized [id number] Closed 12/15/2022 12/15/2023 1 1 Encounter Details Date Type Department Care Team (Late st Contact Info) Description 02/02/2023 4:30 PM EDT [place] [address] Joaquin Metzger DPM [facility] [place] [address] Neuropathic pain of both feet; Onychodystrophy; Pain [...] Progress Notes * Joaquin Metzger DPM - 02/02/2023 4:30 PM EDT Outpatient Podiatry Clinic Note Name: Malik Machado Age:72 y.o. MR#: [id number] Date of Service: 02/02/2023 SUBJECTIVE: Malik Machado is a very pleasant 72 y.o. male who presents to the clinic today for treatment of recurring pain in multiple toes both feet secondary to chronically dystrophic ingrown toenails. I have seen him in the past at a prior practice and taking care of him with this problem previously. Have also performed matrixectomy type procedures for him in the past. 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 He needs preventative care to prevent significant injury to his skin. He cannot do this himself and this should be done only by medical professional. It is my pleasure seeing him today. Allergies Allergen Reactions ??? Zolpidem Other reaction(s): [...] Flecainide Other (See Comments) Adverse effect caused MD and QRS prolongation Other reaction(s): Other (See Comments) Adverse effect caused MD and QRS prolongation Other reaction(s): Other (See Comment) Past Medical History: Diagnosis Date ??? Antiplatelet or antithrombotic long-term use apixaban ??? Chronic back pain greater than 3 months duration ??? Chronic pain spine, has had 3 spine surgeries ??? High blood pressure controlled with medication ??? Hypothyroid treated with medication ??? Irregular heart beat afib ??? [facility] current use of opiate analgesic oxycodone, prescribed by PCP ??? Migraine ??? Postoperative anemia due to acute blood loss 11/17/2019 ??? Thrombocytopenia - chronic 12/16/2012 ??? Thrombocytopenia - chronic 12/16/2012 Social History Socioeconomic History ??? Marital status: Spouse name: Not on file ??? Number of children: Not on file ??? Years of education: Not on file ??? Highest education level: Not on file Occupational History ??? Not on file Tobacco Use ??? Smoking status: Former Packs/day: 2.00 Years: 16.00 Pack years: 32.00 Types: Cigarettes Quit date: 11/09/1982 Years since quittin.2 ??? Smokeless tobacco: Never Vaping Use ??? Vaping Use: Never used Substance and Sexual Activity ??? Alcohol use: No ??? Drug use: Never ??? Sexual activity: Yes Other Topics Concern ??? Not on file Social History Narrative ??? Not on file Social Determinants of Health Financial Resource Strain: Medium Risk ??? Difficulty of Paying Living Expenses: Somewhat hard Food Insecurity: Unknown ??? Worried About Running Out of Food in the Last Year: Never true ??? Ran Out of Food in the Last Year: Not on file Transportation Needs: Unknown ??? Lack of Transportation (Medical): No ??? Lack of Transportation (Non-Medical): Not on file Physical Activity: Not on file Housing Stability: Unknown ??? Unable to Pay for Housing in the Last Year: No ??? Number of Places Lived in the Last Year: Not on file ??? Unstable Housing in the Last Year: No Family History Problem Relation Age of Onset ??? Heart Disease Mother ??? Heart Disease Father ??? Cancer Brother 58 panceratic Current Outpatient Medications on File Prior to Visit Medication Sig Dispense Refill ??? metoprolol succinate XL (Toprol-XL) 100 mg ER 24 hr tablet Take 1 tablet by mouth daily. 135 tablet 1 ??? magnesium hydroxide (MILK OF MAGNESIA ORAL) Take by mouth as needed. ??? Xarelto 20 mg Tablet Take 1 tablet by mouth daily. ??? oxyCODONE (Roxicodone) 5 mg Tablet Take 1-2 tablets by mouth every 4 hours as needed for Pain. (Patient taking differently: Take 5-10 mg by mouth as needed for Pain.) 42 tablet 0 ??? zonisamide (ZONEGRAN) 50 mg Capsule TAKE 1 CAPSULE BY MOUTH EVERY NIGHT AT BEDTIME ??? Emgality Pen 120 mg/mL Pen Injector INJECT 1 PEN SUBCUTANEOUSLY ONCE MONTHLY ??? pregabalin (LYRICA) 100 mg Capsule Take 1 capsule by mouth 2 times daily. ??? lidocaine-prilocaine (EMLA) Cream as needed. ??? polyethylene glycoL (Miralax) 17 gram Powder in Packet Take 17 g by mouth as needed. ??? senna-docusate (Pericolace) 8.6-50 mg Tablet Take 2 tablets by mouth as needed. ??? acyclovir (ZOVIRAX) 200 mg Capsule 1 capsule as needed. Indications: prn ??? diclofenac (VOLTAREN) 1 % Gel Apply topically Once daily as needed. ??? tamsulosin (Flomax) 0.4 mg Capsule TK 1 C PO QD ??? fluticasone propionate (FLONASE) 50 mcg/actuation [place], Suspension INSTILL 1SPRAY IN EACH NOSTRIL TWICE A DAY ??? lamoTRIgine (LAMICTAL) 25 mg Tablet Take 50 mg by mouth 2 times daily. ??? SUMAtriptan (IMITREX) 100 mg Tablet Take 100 mg by mouth as needed for Migraine. Initial dose: 25 mg, 50 mg, or 100 mg (take with fluids). May repeat dose after 2 hours. Max daily dose: 200 mg ??? Triamcinolone Acetonide 0.025 % Lotion Apply topically as needed. ??? omeprazole (PRILOSEC) 20 mg Capsule, Delayed Release(E.C.) Take 20 mg by mouth 2 times daily. ??? BOTOX 200 unit Recon Soln Inject 200 Units as directed Q 3 Months. ??? verapamil (CALAN-SR) 120 mg Tablet Sustained Release Take 1 tablet by mouth daily. (Patient taking differently: Take 120 mg by mouth nightly.) 90 tablet 3 ??? levothyroxine (Synthroid) 100 mcg Tablet Take 100 mcg by mouth daily. ??? MULTIVITAMIN W-MINERALS/LUTEIN (CENTRUM SILVER ORAL) Take 1 tablet by mouth. ??? baclofen (LIORESAL) 10 mg tablet Take 10 mg by mouth nightly as needed. ??? simvastatin (ZOCOR) 10 mg tablet Take 10 mg by mouth nightly. No current facility-administered medications on file prior to visit. ROS: Per HPI EXAMINATION: GEN: Patient is in no acute distress, alert, awake. All toenails both feet are thickened and dystrophic. The left hallux nail plate is ingrown on the distal medial nail fold region. This is a thickened dystrophic nail plate as well. He has very incurvated nail plates on third and fourth toenails on the right foot and third, fourth, fifth toenails onthe left foot. These are not infected but they are ingrown and painful. The areas are hypersensitive secondary to his neuropathy. He has palpable pedal pulses bilaterally. Neurologic exam reveals hypersensitivity to light touch to multiple areas of both feet. Musculoskeletal exam is unremarkable atthis time. ASSESSMENT: Neuropathic pain affecting both lower extremities, chronic Onychodystrophy multiple toenails both feet Ingrowing toenails bilateral feet PLAN: We discussed different treatment options today. I have known aMlik for a long time and have done toenail procedures on him in the past. I was able to carefully examine his feet and then debride and trim out his nails very carefully to avoid stimulating hypersensitive nerves. He tolerated this procedu re very well which he has done in the past with careful treatment. I will be happy to take care of him on a regular basis going forward as he cannot do this safely or effectively himself at this timein his life. FOLLOW UP: isael Metzger DPM, [place] [employer], [facility] documented in this encounter Plan of Treatment Upcoming Encounters Date Type Department Care Team (Late st Contact Info) Description 08/18/2024 11:00 AM EDT Hospital Encounter Non-Invasive [place] [address] Arrived 02/22/2025 1:30 PM EDT Appointment Hematology and Oncology at [place] [phone] 02/22/2025 2:30 PM EDT Office Visit Hematology and Oncology at [place] [phone] Ellis Childers MD [facility] [place] [address] Felicita Landa APRN [facility] [place] [address] documented as of this encounter Visit Diagnoses Diagnosis Neuropathic pain of both feet Onychodystrophy Other specified disease of nail Pain in toe of left foot Pain in limb Pain in toe of right foot Pain in limb documented in this encounter Care Teams Forcer Maker Relationship Specialty Start Date End Date Radha Mckeon MD [address] [place] [address] PCP - General 09/23/10 documented as of this encounter
--- OUTSIDE RECORDS SUMMARY | 2024-07-24 17:21 | XMS_ITS | Encounter Summary ---
Author Organization [place] [address] Care Team Providers Care High [employer] Music Director Name Role Phone Radha Mckeon MD Primary Care Provider [phone] Encounter Details Date Type Department Care Team (Late st Contact Info) Description 01/25/2023 1:30 PM EDT Office Visit Cardiology at [address] [address] Diogo Robb PA [facility] [place] [address] Paroxysmal atrial fibrillation Social History Tobacco Use Types Packs/Day Years [...] Sign Reading Time Taken Comments Blood Pressure 143/70 01/25/2023 1:21 PM EDT Pulse 57 01/25/2023 1:21 PM EDT Temperature - - Respiratory Rate - - Oxygen Saturation 100% 01/25/2023 1:21 PM EDT Inhaled Oxygen Concentration - - Weight 77.6 kg (171 lb) 01/25/2023 1:21 PM EDT Height 182.9 cm (6') 01/25/2023 1:21 PM EDT Body Mass Index 23.19 01/25/2023 1:21 PM EDT documented in this encounter Progress Notes * Diogo Robb PA - 01/25/2023 1:30 PM EDT Cardiac Electrophysiology [facility] ?? Patient ID: Malik Machado is a 72 y.o. male. ?? HPI 72yo man with complex hx including SVT, afib s/p ablation??x2, with longstanding symptoms includinglightheadedness and intermittent sensation of tachycardia without clear correlation with arrythmia.These episodes occur at least daily and can occur when seated or standing. He is currently also followed??by pain management,??neurology and hematology(for ITP). As routine ambulatory monitoring, including Zio has not been in place during severe symptomatic events,??he underwent implantation of a Medtronic ILR in April 2018 and replacement in 2021 due to battery depletion. Though he has continued to have episodes of sensation of lightheadedness and palpitations, the ILR has not??demonstrated any sustained correlating??arrythmia. 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 He is maintained on verapamil 120mg daily and metoprolol succinate 100mg daily. He is anticoagulated with dabigatran. ?? Patient Active Problem List Diagnosis ??? A-fib Overview Note: --Recurrent AF --S/P cardioversions x 3 (09/2005, 01/2006, 07/2007). --AF that has resolved spontaneously (12/2006, etc). 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 --Flecainide stopped after 4 doses due to MA/QRS prolongation, 12/2007. --Started on dofetilide 500mcg BID [...] of periodic palpitations 2015. -- Admitted to [facility] 08/27/16, with A. fib at a [...] --Amitriptyline (palpitations), Lipitor (liver enzyme abnormalities), flecainide (MA/QRS prolongation noted 12/2007). ??? History of surgery Overview Note: --S/p pyloric stenosis surgery 1952, appendectomy 1969, right carpal tunnel surgery 1974, [...] Rx, 2010. --Currently on oxycodone. --Lumbar radiculopathy. Current Outpatient Medications Medication Sig Note Dispense Refill ??? magnesium hydroxide (MILK OF MAGNESIA ORAL) [...] QD ??? fluticasone propionate (FLONASE) 50 mcg/actuation [place], Suspension INSTILL 1SPRAY IN EACH NOSTRIL TWICE A DAY ??? lamoTRIgine (LAMICTAL) 25 mg Tablet Take 50 mg by mouth 2 times daily. ??? SUMAtriptan (IMITREX) 100 mg Tablet Take 100 mg by mouth as needed for Migraine. Initial dose: 25 mg, 50 mg, or 100 mg (take with fluids). May repeat dose after 2 hours. Max daily dose: 200 mg 12/25/2019: PRN ??? Triamcinolone Acetonide 0.025 % Lotion Apply topically as needed. ??? omeprazole (PRILOSEC) 20 mg Capsule, Delayed Release(E.C.) Take 20 mg by mouth 2 times daily. ??? BOTOX 200 unit Recon Soln Inject 200 Units as directed Q 3 Months. 01/05/2022: Not Currently Taking ??? verapamil (CALAN-SR) 120 mg Tablet Sustained [...] tablet Take 10 mg by mouth nightly. ??? metoprolol succinate XL (Toprol-XL) 100 mg ER 24 hr tablet Take 1 tablet by mouth daily. 135 tablet 1 Physical Exam Vitals and nursing note reviewed. Constitutional: Appearance: Normal appearance. Cardiovascular: Rate and Rhythm: Normal rate and regular rhythm. Pulses: Normal pulses. Comments: Left prepectoral ILR site - well healed Pulmonary: Effort: Pulmonary effort is normal. Breath sounds: Normal breath sounds. Musculoskeletal: General: Normal range of motion. Skin: General: Skin is warm and dry. Neurological: General: No focal deficit present. Mental Status: He is alert and oriented to person, place, and time. ILR: Account Review Specialist: Epoqtronic [id number] Implanted: 08/2022 (new ILR placed due to battery depletion of previous device) No autodetected episodes. 2 patient activated episodes with EGMs are available for review - sinus rhythm with normal rates ?? Assessment and Plan 72yo man with complex arrythmia hx including afib and SVT(on monitoring but unable to elicit @ EPS), s/p afib ablation and redo afib ablation in November 2016, with??now chronic, daily,??intermittent episodes of profound lightheadedness not clearly associated with either tachycardia or bradycardia.?? He is maintained on verapamil 120mg and metoprolol 100mg daily??and anticoagulated with dabigatran.??He was last seen by Dr. Gan on 12/02/2017 and later underwent an ILR implant in April 2018 with replacement in 2021. Though he has continued to report intermittent symptoms, there is no correlation with sustained??arrythmia. He denies recent syncope. He has longstanding right bundle branchblock and a left anterior hemiblock that have been stable. We discussed the diagnostic findings and clinical hx and I suggested we trial a further decreased dose of metoprolol to 50mg once daily to assess whether this has any positive or negative effect on his symptoms. He has not been demonstrated to be orthostatic now or in the past, however in the absence of tachy or jhoana arrythmia, it is possible that transient hypotension may play a role. He reports some local irritability at his ILR site though visually it appears well healed without signs of infection or erosion. He is tender to palpation at the superior aspect of the ILR, where there is a tissue defect likely from the explant of his previous device. Despite this, there is palpable subcutaneous fat that is not suggestive of impending erosion. Plan: ILR remote follow up as previously arranged Trial decrease of metoprolol succinate from 100mg to 50mg daily Provider: ANDREE Shelley EP Consult attending physician: Britt Benson MD documented in this encounter Plan of Treatment Upcoming Encounters Date Type Department Care Team (Late st Contact Info) Description 08/18/2024 11:00 AM EDT Hospital Encounter [place] [address] Arrived 02/22/2025 1:30 PM EDT Appointment Hematology [place] [address] 02/22/2025 2:30 PM EDT Office Visit Hematology and Oncology at [place] [address] Ellis Childers MD [facility] DR HEMATOLOGY [place] [address] Felicita Landa APRN [facility] DR HEMATOLOGY [place] [address] documented as of this encounter Visit Diagnoses Diagnosis Paroxysmal atrial fibrillation Atrial fibrillation documented in this encounter Care Teams High School Music Director Relationship Specialty Start Date End Date Radha Mckeon MD [address] [place] [address] PCP - General 09/23/10 documented as of this encounter
--- OUTSIDE RECORDS SUMMARY | 2024-07-24 17:21 | XMS_ITS | Encounter Summary ---
Author Organization [facility] [place] [address] Care Team Providers Care Chiropractic Physician Name Role Phone Radha Mckeon MD Primary Care Provider [phone] Reason for Visit * Reason Onset Date Comments Other 08/18/2022 F/u remote monit oring Encounter Details Date Type Department Care Team (Late st Contact Info) Description 08/18/2022 Telephone Cardiology at [address] [phone] Janae Queen Other (F/u remote monitoring) Social History Tobacco Use Types Packs/Day Years [...] Miscellaneous Notes * Telephone Encounter - Janae Queen LNA - 08/18/2022 12:02 PM EDT Patient returned a call to the [facility] regarding his monitor. Patient said that he has used his symptom activator a few times for dizzy spells. The transmissions that came in didn't show any abnormalities. I told the patient that there are many causes for dizziness and he should follow up with his PCP. I also suggested he keep a log book and write down the time of day and what he was doing around these spells. Patient was wondering if he needs a general portrait painter at this point, I told him that would be a discussion with his PCP as well. He asked that I let ANDREE Shelley know about the dizziness, which I told him I would do. documented in this encounter Plan of Treatment Upcoming Encounters Date Type Department Care Team (Late st Contact Info) Description 08/18/2024 11:00 AM EDT Hospital Encounter Non-Invasive [place] [address] Arrived 02/22/2025 1:30 PM EDT Appointment Hematology [place] [address] 02/22/2025 2:30 PM EDT Office Visit Hematology [place] [address] Ellis Childers MD [facility] DR HEMATOLOGY [place] [address] Felicita Landa APRN [facility] [address] HEMATOLOGY [place] [address] documented as of this encounter Visit Diagnoses Not on filedocumented in this encounter Care Teams Chiropractic Physician Relationship Specialty Start Date End Date Radha Mckeon MD [address] [place] [address] PCP - General 09/23/10 documented as of this encounter
--- OUTSIDE RECORDS SUMMARY | 2024-07-24 17:21 | XMS_ITS | Encounter Summary ---
Author Organization [facility] [place] [address] Care Team Providers Care Senior Portfolio Manager Name Role Phone Radha Mckeon MD Primary Care Provider [phone] Reason for Visit * Reason Comments Follow-up Had a pretty bad nos e bleed three weeks ago that last over 3 hours and ended up in the ER. He was given a spray and that seemed to help. He had another nose bleed last Wednesday but was able to catch it quick. Encounter Details Date Type Department Care Team (Late Contact Info) Description 12/21/2022 2:00 PM EST Office [place] [address] Mariya Avendaño APRN [facility] [place] [address] H/O epistaxis Social History Tobacco Use Types Packs/Day Years [...] a care home (including now)? No 04/01/2022 Sex and [...] Oxygen Concentration - - Weight 78 kg (171 lb 15.3 oz) 12/21/2022 2:10 PM EST Height 182.9 cm (6') 12/21/2022 2:10 PM EST Body Mass Index 23.32 12/21/2022 2:10 PM EST documented in this encounter Progress Notes * Mariya Avendaño, ISSAC - 12/21/2022 2:00 PM EST Epistaxis Date of Visit: 12/21/2022 Location of Visit: Otolaryngology Clinic, [facility] Patient: Malik Machado ([id number], 1950) Primary Care Provider: Radha Mckeon MD Referring Provider: No primary care provider on file. Reason for Visit: Malik is a 72 y.o. with history of epistaxis. Here for a recheck. Last seen on 08/04/2022 for this issue. History of Present Illness: this was copied from 's note on 08/01/2022 ?? Malik Machado is a 72 y.o. male with PMH Afib on Xarelto, no home O2, who presented to [facility] with anterior right epistaxis. Per discussion with Dr. Stevens, patient has had a several month history of recurrent anterior epistaxis which typically resolves spontaneously. Patient presented tonight with persistent right anterior nasal bleeding with very slow flow. The outside provider has tried Afrin nasal spray to bilateral nares with persistent slow nasal ooze. The patient was last seen for this diagnosis in May of this year by Mariya Avendaño APRN, who recommended the following prophylactic interventions: avoid digital manipulation, blood thinning medications as medically appropriate, and nasal ayr gel to bilateral nares. It is not clear whether or not the patient has begun these interventions. New issues since last seen: He is currently on a blood thinner. . 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 No other bleeding issues. Heis using AYR nasal gel daily but does not always remember to use this. HE has Afrin at home. He hasa hx of thrombocytopenia. His last epistaxis on the right last Wednesday but it stopped quickly. He did an epistaxis a few weeks before and had to go to the ER to stop this. Past Medical History: Other than above, see list Review of Systems: Pertinent positive findings discussed above. No other findings on review of constitutional, visual, cardiovascular, respiratory, gastrointestinal, genitourinary, musculoskeletal, dermatologic, neurological, psychiatric, endocrine, hematologic or immunulogic systems. Physical Examination: General: Age Appropriate interactive behavior in NAD. Face: Symmetric without dysmorphic features. Ears: Auricles symmetric bilateraly without lesions. External auditory canals are clear. On the left, tympanic membrane translucent. Middle ear on the left aerated. On the right, tympanic membrane translucent. Middle ear on the right aerated. Nose: Patent anteriorly; healthy pink mucosa without lesions. No clear vessel prominent to cauterize. Septum without significant deviation. Mouth: Lips and gingiva pink, moist, without lesions. Gum/dentition healthy. Tongue and floor of mouth soft without lesions or masses. Hard palate without lesions. Pharynx: Soft palate without lesions; uvula intact without evidence of submucus cleft palate. Oropharynx symmetric, . Neck: Soft, supple without significant lymphadenopathy. Thyroid gland without masses or asymmetry. Trachea midline without deviation. Procedure Note:No endoscopy exam performed or cauterization. Impression: h/o Epistaxis with rhinitis Recommendations:No cauterization done today. Hold on the Flonase. Continue with the oral antihistamine. Continue with the nasal rinse We discussed that further episodes of epistaxis can be prevented by avoiding digital manipulation (picking, rubbing etc. ) of the nose and excessive nose-blowing. Medications that increase the risk of epistaxis such as ibuprofen, aspirin. Maintaining a moist nasal environment is important in preventing further nosebleeds, and be accomplished by gently applying ayr nasal gel to the fleshy outer portions of the nostril and gently inhaling to coat the inside of the nostril; performing this twice daily is recommended. In addition, saline nasal spray may be used in termittently throughout the day. A humidifier at night will also help prevent crusting, especially during the colder months with dry heat. When a nosebleed does occur, gentle direct pressure for a solid 10-15 minutes with the head in neutral position is recommended; Afrin or other nasal decongestant spray can be used to intitiate vasoconstriction and help slow the bleeding. Nosebleeds that do not respond to these measures may require further evaluation and treamtent. The patient/family was instructed to call or RTC if symptoms increase or if there are any concerns. Mariya Avendaño APRN [facility] Otolaryngology-Head and Neck Surgery [place], [place] [address] documented in this encounter Plan of Treatment Upcoming Encounters Date Type Department Care Team (Late st Contact Info) Description 08/18/2024 11:00 AM EDT Hospital Encounter Non-[place] [address] Arrived 02/22/2025 1:30 PM EDT Appointment Hematology [place] [phone] 02/22/2025 2:30 PM EDT Office Visit Hematology [place] [phone] Ellis Childers MD [facility] DR HEMATOLOGY AND ONCOLOGY [place], [place] [id number] Felicita Landa APRN [facility] [place] [address] documented as of this encounter Visit Diagnoses Diagnosis H/O epistaxis Personal history of other diseases of respiratory system documented in this encounter Care Teams Senior Portfolio Manager Relationship Specialty Start Date End Date Radha Mckeon MD [address] [place] [address] PCP - General 09/23/10 documented as of this encounter
--- OUTSIDE RECORDS SUMMARY | 2024-07-24 17:21 | XMS_ITS | Encounter Summary ---
Author Organization [facility] [place] [place] [address] Care Team Providers Care Crop Farmers Name Role Phone Radha Mckeon MD Primary Care Provider [phone] Encounter Details Date Type Department Care Team (Late st Contact Info) Description 08/10/2022 3:00 PM EDT - 08/10/2022 4:30 PM EDT [place] [address] Garrett Benson MD [facility] [place] [address] ELECTROPHYSIOLOGY PROCEDURE Social History Tobacco Use Types Packs/Day Years [...] Sign Reading Time Taken Comments Blood Pressure 160/79 08/10/2022 4:30 PM EDT Pulse 52 08/10/2022 12:59 PM EDT Temperature 36.3 ??C (97.3 ??F) 08/10/2022 12:59 PM E DT Respiratory Rate 16 08/10/2022 12:59 PM EDT Oxygen Saturation 99% 08/10/2022 12:59 PM EDT Inhaled Oxygen Concentration - - Weight 78 kg (171 lb 14.4 oz) 08/10/2022 12:59 P M EDT Height - - Body Mass Index 23.98 08/04/2022 11:24 AM EDT documented in this encounter Discharge Instructions * Patient Instructions* Ty Miranda MD - 08/10/2022 5:02 PM EDT Please do not bath or swim for 2 weeks after this procedure. You may shower but do not immerse yourwound in the water. In 2 days, you may remove the top bandage but the underlying steristrips will fall off in 1-2 weeks. Please allow them to fall off naturally, and do not pull or pick at them. Additional instructions and information are attached. It was a pleasure taking care of you and we wish you the best. Warmly, Your care team at [facility] * Attachments The following attachments cannot be sent through Care Everywhere. * Implantable Physical Anthropologist: Post-op (Lebanese) * Implantable Physical Anthropologist: General Info (Lebanese) documented in this encounter Medications at Time [...] QD 04/23/2020 fluticasone propionate (FLONASE) 50 mcg/actuation [place], Suspension INSTILL 1SPRAY IN EACH NOSTRIL TWICE [...] 10/07/2017 08/03/2023 documented as of this encounter H&P Notes * Garrett Benson MD - 08/10/2022 3:53 PM EDT Images from the original note were not included. Section of Cardiology/Cardiac Electrophysiology Clinical Cardiac Electrophysiology Patient ID Malik Machado 1950 [id number] C/c: syncope, palpitations History Mr. Machado is a 72 year old man with a history of conduction system disease, AF, lightheadedness and loop recorder implantation in 2018. His ILR battery is . He has ongoing symptoms and is concerned about an arrhythmia. He presents for ILR explant and reimplantation of a new ILR. He feels wellcurrently. He is ready to go. Problem List Patient Active Problem List Diagnosis ??? A-fib --Recurrent AF --S/P cardioversions x 3 (09/2005, 01/2006, 07/2007). --AF that has resolved spontaneously (12/2006, etc). 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 --Flecainide stopped after 4 doses due to GA/QRS prolongation, 12/2007. --Started on dofetilide 500mcg BID [...] of periodic palpitations 2015. -- Admitted to [facility] 08/27/16, with A. fib at a rate of 112 bpm on metoprolol 100 mg daily/verapamil 180 mg daily; DCCV; metoprolol increased to 150 mg daily; started Eliquis. --Echo 11/2016: EF 58%. --Repeat afib ablation 11/23/2016: Veins still isolated; posterior wall isolation performed, stage IV. ??? Hypertension ??? ILR at EOL - no telemetry ??? S/p C4-6 ACDF 05/19/22 (Forrest) ??? Thrombocytopenia ??? Radiculopathy of cervical region ??? Trigger middle finger of right hand ??? s/p right long finger A1 kayla release for trigger finger 05/15/21 (Dr Duong) ??? Radiculopathy of cervical region ??? Neck pain ??? Numbness and tingling in left arm ??? History of loop recorder ILR ??? Postoperative anemia due to acute blood loss ??? S/P right total knee arthroplasty revision - poly swab and patellar revision Destinyi 11/15/2019 ??? Thrombopenia ??? Essential hypertension ??? Paroxysmal atrial fibrillation ??? Failed total knee arthroplasty ??? Right knee pain ??? Debility ??? Lightheadedness ??? Adverse drug effects --Amitriptyline (palpitations), Lipitor (liver enzyme abnormalities), flecainide (GA/QRS prolongation noted 12/2007). ??? History of surgery --S/p pyloric stenosis surgery 2, appendectomy 1969, right carpal tunnel surgery 1974, spinal fusion 1993 (redo back surgery 1995, 1998), umbilical hernia repair 1997, left carpal tunnel repair 2002, left elbow surgery 2004, right total knee replacement 2009. ??? S/P knee replacement SURGERY DATE: 01/14/2010 MICHAEL CHAVEZ MD PROCEDURE PERFORMED: Right total knee arthroplasty. IMPLANTS USED: All implants were from the [employer] Sigma total knee system. 1. A size 4 press-fit cruciate retaining porous femoral component. 2. A size 4 press- fit porous rotating platform tibial tray.3. A size 4 x 10-mm rotating platform polyethylene. 4. A 35-mm round patella. 5. Half batch of quick set cement. ??? RBBB (right bundle branch block with left anterior fascicular block) ??? Chronic back pain, causing disability --Methadone and baclofen Rx, 2010. --Currently on oxycodone. --Lumbar radiculopathy. Review of Systems ROS See above. All other review of systems negative. Meds Current Facility-Administered Medications Medication Dose Route Frequency Provider Last Rate Last Admin ??? BUpivacaine (pf) (Marcaine) (5 mg/mL) 0.5% injection 150 mg 30 mL Subcutaneous Once Salomón Gan MD ??? lidocaine-EPINEPHrine (2% - 1:100,000) injection vial 30 mL 30 mL Intradermal Once Gustavo Gan MD ??? ceFAZolin (Ancef) 2 g in dextrose 5% 100 mL infusion 2 g Intravenous Once Garrett Benson MD Social History Social History Socioeconomic History ??? Marital status: Spouse name: None ??? Number of children: None ??? Years of education: None ??? Highest education level: None Occupational History ??? None Tobacco Use ??? Smoking status: Former Smoker Packs/day: 2.00 Years: 16.00 Pack years: 32.00 Types: Cigarettes Quit date: 11/09/1982 Years since quittin.7 ??? Smokeless tobacco: Never Used Vaping Use ??? Vaping Use: Never used Substance and Sexual Activity ??? Alcohol use: No ??? Drug use: Never ??? Sexual activity: Yes Other Topics Concern ??? None Social History Narrative ??? None Social Determinants of Health Financial Resource Strain: [...] in the Last Year: No Family History Family History Problem Relation Age of Onset ??? Heart Disease Mother ??? Heart Disease Father ??? Cancer Brother 58 panceratic Exam Patient Vitals for the past 24 hrs: Temp Pulse Resp BP SpO2 O2 Device 08/10/22 1259 36.3 ??C (97.3 ??F) 52 16 173/86 99 % RA @EXAM@ GEN: patient appears well and in no apparent distress, alert and oriented ENT: extraocular movements with full range of motion. mallampati II, ASA II NECK: normal JVP CHEST: clear to auscultation with no wheeze, rhonchi or rales. Symmetric chest movement COR: S1S2, regular rate, normal rhythm, no discernible murmurs, rubs or gallops. ABDOMEN: soft, nontender, nondistended, normal bowel sounds EXTREMITIES: no edema, warm, well perfused NEUROLOGICAL: alert and oriented to person, place and time. CN 2-12 grossly intact. I have personally reviewed all pertinent labs, cardiac rhythm monitors and imaging Impression/Plan Mr. Machado is ready for ILR explant/reimplant. We discussed the risks, benefits, alternatives and procedural details. He has signed consent. Ready to proceed. He is NPO past midnight. Garrett Benson MD Cc: Radha Mckeon MD * Garrett Benson MD - 08/10/2022 3:36 PM EDT Images from the original note were not included. Patient Name: Malik Machado Patient Age: 72 y.o. Birthdate: 1950 Admit date: 08/10/2022 Attending Physician: Salomón Gan MD Malik Machado is a 72 y.o. male with history of SVT, atrial fibrillation s/p ablation x2 on Pradaxa who presents for explant of old cardiac rhythm monitor and implant of new cardiac rhythm monitor. There have not been any changes in health status since last seen in clinic. No fevers, no chills, no bleeding. Outpatient Medications Marked as Taking for the 08/10/22 encounter (Hospital Encounter) Medication Sig Dispense Refill ??? magnesium hydroxide (MILK OF MAGNESIA ORAL) Take by mouth as needed. ??? Xarelto 20 mg Tablet Take 1 tablet by mouth daily. ??? oxyCODONE (Roxicodone) 5 mg Tablet Take 1-2 tablets by mouth every 4 hours as needed for Pain. (Patient taking differently: Take 5-10 mg by mouth as needed for Pain.) 42 tablet 0 ??? metoprolol succinate XL (Toprol-XL) 100 mg Tablet Sustained Release 24 hr TAKE 1 AND 1/2 TABLETS BY MOUTH DAILY 135 tablet 1 ??? zonisamide (ZONEGRAN) 50 mg Capsule TAKE 1 CAPSULE BY MOUTH EVERY NIGHT AT BEDTIME ??? Emgality Pen 120 mg/mL Pen Injector INJECT 1 PEN SUBCUTANEOUSLY ONCE MONTHLY ??? pregabalin (LYRICA) 100 mg Capsule Take 1 capsule by mouth 2 times daily. ??? polyethylene glycoL (Miralax) 17 gram Powder in Packet Take 17 g by mouth as needed. ??? senna-docusate (Pericolace) 8.6-50 mg Tablet Take 2 tablets by mouth as needed. ??? diclofenac (VOLTAREN) 1 % Gel Apply topically Once daily as needed. ??? fluticasone propionate (FLONASE) 50 mcg/actuation [place], Suspension INSTILL 1SPRAY IN EACH NOSTRIL TWICE A DAY ??? lamoTRIgine (LAMICTAL) 25 mg Tablet Take 50 mg by mouth 2 times daily. ??? SUMAtriptan (IMITREX) 100 mg Tablet Take 100 mg by mouth as needed for Migraine. Initial dose: 25 mg, 50 mg, or 100 mg (take with fluids). May repeat dose after 2 hours. Max daily dose: 200 mg ??? omeprazole (PRILOSEC) 20 mg Capsule, Delayed Release(E.C.) Take 20 mg by mouth 2 times daily. ??? verapamil (CALAN-SR) 120 mg Tablet Sustained [...] tablet Take 10 mg by mouth nightly. BP 173/86 (BP Location (NBP): Right arm) Pulse 52 Temp 36.3 ??C (97.3 ??F) (Temporal) Resp 16 Wt 78 kg (171 lb 14.4 oz) SpO2 99% BMI 23.98 kg/m?? Gen: Alert, comfortable appearing, in NAD HEENT: EOMI, MMM Neck: Supple, no JVD CV: RRR, no M/R/G appreciated, normal S1/S2, PMI not palpated Resp: CTAB, no W/R/R Abd: Soft, NT/ND, +BS Ext: No edema, clubbing, or cyanosis. Warm and well perfused. Neuro: CN grossly intact, moving all extremities Psych: Appropriate affect Pulses: 2+ bilateral radial pulses, right hand eneida's test demonstrates adequate reperfusion via ulnar artery alone, Barbeau test to be done in procedure room, 2+ bilateral femoral pulses, no femoral bruit appreciated, 2+ bilateral DP pulses Labs reviewed and notable for: Lab Results Component Value Date WBC 5.8 07/02/2022 HGB 14.9 07/02/2022 HCT 43.8 07/02/2022 MCV 93.2 (H) 07/02/2022 PLATELET 105 (L) 07/02/2022 Lab Results Component Value Date CREATININE 1.21 07/02/2022 BUN 20 07/02/2022 NA 144 07/02/2022 K 4.9 07/02/2022 CL 109 (H) 07/02/2022 CO2 29 07/02/2022 Lab Results Component Value Date INR 5.8 (CRIT) 12/25/2019 A/P 72 y.o. male here for ILR explant and re-implant. - proceed as planned - consent signed - FULL code -12-Lead ECG reviewed ASA: 2: Patient with mild systemic disease Mallampati: II: tonsillar pillars are blocked by the tongue I have personally discussed the procedure, including benefits and risks, with the patient who agrees to proceed. The indications for the catheterization, the expected benefits, and the possible riskswere reviewed in detail with the patient. The potential for , heart attack, stroke, kidney failure, bleeding, allergic reaction, vascular complications and infection were reviewed. The possibility of stenting and other percutaneous interventions, with associated risk, was reviewed. The potential need for emergent coronary artery bypass surgery was reviewed. Alternatives were discussed and the patient's questions were answered in full. Following this discussion, the patient consented to theprocedure and signed a form attesting to this, which is in the chart Ty Miranda MD General Cardiology 08/10/22 3:36 PM [id number] I met with the patient today and independently confirmed the history, physical exam, and testing. Ipersonally reviewed and interpreted the available ECGs and additional cardiac testing (echo), as well as the labs. I agree with the detailed management plan as written in the fellow note today. I discussed this plan with the patient, who is also in agreement. ? Dr. Garrett Benson, electrophysiology attending ([id number]) documented in this encounter Plan of Treatment Upcoming Encounters Date Type Department Care Team (Late st Contact Info) Description 08/18/2024 11:00 AM EDT Hospital Encounter Non-[place] [address] Arrived 02/22/2025 1:30 PM EDT Appointment H[place]ology [place] [address] 02/22/2025 2:30 PM EDT Office Visit Hematology [place] [address] Ellis Childers MD [facility] [address] [place] [address] Felicita Landa APRN [facility] [place] [address] documented as of this encounter Procedures Procedure Name Priority Date/Time Associated Diagnosis Comments ELECTROPHYSIOLOGY PROCEDURE Routine 08/10/2022 4:56 PM EDT Encounter for loop recorder at end of battery life REMOVAL, SUBQ CARDIAC RHYTHM MONITOR Routine 08/04/2022 1:11 PM EDT Encounter for loop recorder at end of battery life INSERTION, SUBQ CARDIAC RHYTHM MONITOR, INCLUDING PROGRAMMING Routine 08/04/2022 1:11 PM EDT Encounter for loop recorder at end of battery life documented in this encounter Results * ELECTROPHYSIOLOGY PROCEDURE (08/10/2022 4:56 PM EDT) Anatomical Region Laterality Modality Other Narrative 08/10/2022 10:04 PM EDT LOOP RECORDER EXPLANT/LOOP RECORDER IMPLANT Entry Level: Garrett Benson MD Fellow: Ty Miranda MD Referring provider: ANDREE Shelley C/c: Radha Mckeon MD Patient history: Mr. Machado is a 72 year old man with a history of SVT, atrial fibrillation status post left atrial ablation X 2, right bundle branch block with left anterior fascicular block as well as palpitations and lightheadedness who underwent ILR implantation in 2018. ??He has not had symptoms consistently correlate with arrhythmia and he has not been terribly symptomatic of late. Meanwhile, his ILR battery became totally depleted and he had a sudden recurrence of lightheadedness. He now presents for explantation of his old ILR with implantation of a new ILR, given recrudescence of his symptoms. Procedure: The patient was brought to the cardiac electrophysiology laboratory in a post-absorptive, fasting state. The patient had received 3 scrubs to the implant area. ??Informed consent was obtained. A peripheral IV was in place. Continuous electrocardiographic, blood pressure, oxygen saturation and CO2 monitoring was initiated. The patient was then prepped and draped in the usual sterile fashion. IV antibiotics were administered. The implant area was infiltrated with a 50/50 mixture of lidocaine (2%) and epinephrine. An incision was made over the ILR and then blunt dissection used to expose the ILR; the ILR was entirely removed. Hemostasis was achieved with manual compression. The incision was closed with two layers of stitches: 3-0 vicryl and 4-0 monocryl, in a subcuticular fashion. Steri-strips were applied over the incision. Next, a stab incision was made lateral to the left edge of the sternum at the 4th intercostal space. The implantation tool was inserted at a 45 degree angle and the new ILR was implanted. Hemostasis was maintained with manual compression. The ILR was interrogated and adequate sensing characteristics were obtained. The skin was closed using glue. A bio-occlusive dressing was applied to the skin. The patient was hemodynamically stable, tolerated the procedure well and was transferred in stable condition. Dr. Benson was present for the participated in the entire procedure. Generator data: Manager Traffic Model No. Serial No. New Generator Medtronic LNQ22 [id number] Removed generator Medtronic LNQ11 [id number] Sense data: Sensed wave (mV) Ventricle 0.45 Final programming: Mode Lower rate Upper rate Pause Detection 30 bpm @ 4 beats 158 bpm @ 16 beats 3 seconds Medication summary: 2 g IV cefazolin, local anesthetic Conclusions: 1. Successful explantation of a Medtronic loop recorder for battery depletion. 2. Successful implantation of a Medtronic loop recorder for recurrent lightheadedness. Procedures performed: loop recorder implantation, loop recorder explantation I have read, edited and approve of the above report: Garrett Benson MD [facility] 08/10/2022 10:03 PM Procedure Note Garrett Benson MD - 08/10/2022 LOOP RECORDER EXPLANT/LOOP RECORDER IMPLANT Entry Level: Garrett Benson MD Fellow: Ty Miranda MD Referring provider: ANDREE Shelley C/c: Radha Mckeon MD Patient history: Mr. Rohnert is a 72 year old man with a history of SVT,atrial fibrillation status post left atrial ablation X 2, right bundlebranch block with left anterior fascicular block as well as palpitationsand lightheadedness who underwent ILR implantation in 2018. He has nothad symptoms consistently correlate with arrhythmia and he has not beenterribly symptomatic of late. Meanwhile, his ILR battery became totallydepleted and he had a sudden recurrence of lightheadedness. He nowpresents for explantation of his old ILR with implantation of a new ILR,given recrudescence of his symptoms. Procedure: The patient was brought to the cardiac electrophysiology laboratory in apost-absorptive, fasting state. The patient had received 3 scrubs to theimplant area. Informed consent was obtained. A peripheral IV was inplace. Continuous electrocardiographic, blood pressure, oxygen saturationand CO2 monitoring was initiated. The patient was then prepped anddraped in the usual sterile fashion. IV antibiotics were administered. Theimplant area was infiltrated with a 50/50 mixture of lidocaine (2%) andepinephrine. An incision was made over the ILR and then blunt dissectionused to expose the ILR; the ILR was entirely removed. Hemostasis wasachieved with manual compression. The incision was closed with two layersof stitches: 3-0 vicryl and 4-0 monocryl, in a subcuticular fashion.Steri-strips were applied over the incision. Next, a stab incision was made lateral to the left edge of the sternum atthe 4th intercostal space. The implantation tool was inserted at a 45degree angle and the new ILR was implanted. Hemostasis was maintained withmanual compression. The ILR was interrogated and adequate sensingcharacteristics were obtained. The skin was closed using glue. Abio-occlusive dressing was applied to the skin. The patient washemodynamically stable, tolerated the procedure well and was transferredin stable condition. Dr. Benson was present for the participated in theentire procedure. Generator data: Manager Traffic Model No. Serial No. New Generator Medtronic LNQ22 [id number] Removed generator Medtronic LNQ11 [id number] Sense data: Sensed wave (mV) Ventricle 0.45 Final programming: Mode Lower rate Upper rate Pause Detection 30 bpm @ 4 beats 158 bpm @ 16 beats 3 seconds Medication summary: 2 g IV cefazolin, local anesthetic Conclusions: 1. Successful explantation of a Medtronic loop recorder for batterydepletion. 2. Successful implantation of a Medtronic loop recorder for recurrentlightheadedness. Procedures performed: loop recorder implantation, loop recorderexplantation I have read, edited and approve of the above report: Garrett Benson MD [facility] 08/10/2022 10:03 PM Garrett Benson MD EP PROCEDURE ORDERAB LES documented in this encounter Visit Diagnoses Diagnosis Encounter for loop recorder at end of battery life Encounter for loop recorder at end of battery life documented in this encounter Administered Medications Inactive Administered Medications - up to 3 most recent administrations Medication Order MAR Action Action Date Dose Rate Site ceFAZolin (Ancef) 2 g in dextrose 5% 100 mL infusion 2 g, Intravenous, ONCE, 1 dose, On Wed08/10/22 at 1615, Administer over 30 Minutes, For use in the electrophysiology lab (EP lab) only for procedural sedation with direct provider supervision and verbal order., EP (Intra-Procedure), Indication for (Active or Suspected): Prophylaxis New Bag 08/10/2022 4:15 PM EDT 2 g 200 mL/hr lidocaine-EPINEPHrine (2% - 1:100,000) injection vial 30 mL 30 mL, Intradermal, ONCE, 1 dose, On Wed08/10/22 at 1315, Warning Vesicant/Irritant Medication , EP (Intra-Procedure), Routine Given 08/10/2022 4:15 PM EDT 10 mLs documented in this encounter Active and Recently Administered Medications Times are shown in EDT. Scheduled Medication Order 08/08/2022 08/09/2022 08/10/2022 ceFAZolin (Ancef) 2 g in dextrose 5% 100 mL infusion (COMPLETED) 2 g, Intravenous, ONCE, 1 dose, On Wed08/10/22 at 1615, Administer over 30 Minutes, For use in the electrophysiology lab (EP lab) only for procedural sedation with direct provider supervision and verbal order., EP (Intra-Procedure), Indication for (Active or Suspected): Prophylaxis 1615 (New Bag - Prov ider: Kate Witt RN - Comment: administered by Jordin Walters RN)1645 (Due: Stopped - Provider: Kate Witt RN) lidocaine-EPINEPHrine (2% - 1:100,000) injection vial 30 mL (COMPLETED) 30 mL, Intradermal, ONCE, 1 dose, On Wed08/10/22 at 1315, Warning Vesicant/Irritant Medication , EP (Intra-Procedure), Routine 1615 (Given - Provid er: Kate Witt RN - Comment: administered by Drs. Benson and Ruth) documented in this encounter Care Teams Crop Farmers Relationship Specialty Start Date End Date Radha Mckeon MD [address] [place] [address] PCP - General 09/23/10 documented as of this encounter
--- OUTSIDE RECORDS SUMMARY | 2024-07-24 17:21 | XMS_ITS | Encounter Summary ---
Author Organization [facility] [place] [address] Care Team Providers Care Machine Shop Repair Technician Name Role Phone Radha Mckeon MD Primary Care Provider [phone] Encounter Details Date Type Department Care Team (Latest Contact Info) Description 03/27/2023 11:00 AM EDT - 03/27/2023 11:59 PM EDT Hospital Encounter [place] [id number] Discharge Disposition: Home Social History Tobacco Use [...] QD 04/23/2020 fluticasone propionate (FLONASE) 50 mcg/actuation [place], Suspension INSTILL 1SPRAY IN EACH NOSTRIL TWICE [...] AM EDT Hospital Encounter Non-[place] [address] Arrived 02/22/2025 1:30 PM EDT Appointment Hematology [place] [address] 02/22/2025 2:30 PM EDT Office Visit Hematology [place] [address] Ellis Childers MD [facility] DR HEMATOLOGY [place] [address] Felicita Landa APRN [facility] HEMATOLOGY [place] [address] documented as of this encounter Procedures Procedure Name Priority Date/Time Associated Diagnosis Comments PRG ILR INTERROGATION REMOTE UP TO 30 DAYS Routine 03/09/2023 2:09 AM EDT documented in this encounter Results * Cardiac Device Check - Remote (03/09/2023 2:09 AM EDT) Anatomical Region Laterality Modality Other 03/09/2023 2:09 AM EDT Garrett Benson MD IMPLANTABLE CARDIAC DEVICE documented in this encounter Visit Diagnoses Not on filedocumented in this encounter Care Teams Machine Shop Repair Technician Relationship Specialty Start Date End Date Radha Mckeon MD [address] [place] [address] PCP - General 09/23/10 documented as of this encounter
--- OUTSIDE RECORDS SUMMARY | 2024-07-24 17:21 | XMS_ITS | Encounter Summary ---
Author Organization [facility] [place] [address] Care Team Providers Care Programmer Analyst Name Role Phone Radha Mckeon MD Primary Care Provider [phone] Encounter Details Date Type Department Care Team (Latest Contact Info) Description 12/21/2022 Travel Social History Tobacco Use Types Packs/Day [...] AM EDT Hospital Encounter Non-Invasive [place] [address] Arrived 02/22/2025 1:30 PM EDT Appointment Hematology and Oncology at [place] [address] 02/22/2025 2:30 PM EDT Office Visit Hematology and Oncology at [place] [address] Ellis Childers MD [facility] DR HEMATOLOGY [place] [address] Felicita Landa APRN [facility] [address] HEMATOLOGY [place] [address] documented as of this encounter Visit Diagnoses Not on filedocumented in this encounter Care Teams Programmer Analyst Relationship Specialty Start Date End Date Radha Mckeon MD [address] [place] [address] PCP - General 09/23/10 documented as of this encounter
--- OUTSIDE RECORDS SUMMARY | 2024-07-24 17:21 | XMS_ITS | Encounter Summary ---
Author Organization Formerly [facility] [address] Care Team Providers Care Small Wind Energy Installer Name Role Phone Radha Mckeon MD Primary Care Provider [phone] Encounter Details Date Type Department Care Team (Latest Contact Info) Description 08/18/2022 12:06 PM EDT - 08/18/2022 11:59 PM EDT Hospital Encounter Hematology [place] [phone] Thrombocytopenia Discharge Disposition: Home Social History Tobacco [...] in a long-term (including now)? No 04/01/2022 Sex and Gender [...] QD 04/23/2020 fluticasone propionate (FLONASE) 50 mcg/actuation [place], Suspension INSTILL 1SPRAY IN EACH NOSTRIL TWICE [...] AM EDT Hospital Encounter [place] [address] Arrived 02/22/2025 1:30 PM EDT Appointment Hematology [place] [address] 02/22/2025 2:30 PM EDT Office Visit Hematology [place] [address] Ellis Childers MD [facility] DR HEMATOLOGY [place] [address] Felicita Landa APRN [facility] HEMATOLOGY [place] [address] documented as of this encounter Procedures Procedure Name Priority Date/Time Associated Diagnosis Comments HEMOGRAM Routine 08/18/2022 12:21 PM EDT Thrombocytopenia DIFFERENTIAL, AUTOMATED Routine 08/18/2022 12:21 PM EDT Thrombocytopenia HC CBC,PLT & AUTO DIFF Routine 08/18/2022 12:21 PM EDT Thrombocytopenia documented in this encounter Results * Differential, Automated (08/18/2022 12:21 PM EDT) Neutrophil % 72.0 % [facility] Neutrophil Absolute 3.97 1.70 - 6.10 x10(3)/[facility] Lymph % 15.9 % [facility] Lymphocytes Abs 0.9 0.9 - 3.2 x10(3)/[facility] Monocyte % 9.2 % [facility] Monocyte Abs 0.5 0.3 - 0.9 x10(3)/[facility] Eos % 2.0 % [facility] Eosinophils Abs 0.1 0.0 - 0.4 x10(3)/[facility] Basophil % 0.5 % [facility] Baso Absolute 0.0 0.0 - 0.1 x10(3)/[facility] Immature Gran % 0.40 % [facility] Comment: Immature granulocytes(IG's)percentage and absolute count will include metamyelocytes, myelocytes, and promyelocytes. Blood smears from CBCs yielding IG's will be scanned manually for concordance. If this scan disagrees with the automated IG or if promyelocytes are noted, a manual differential will be performed. Immature Gran Absolute 0.02 0.00 - 0.04 x10(3)/[facility] Blood 08/18/2022 12:2 1 PM EDT 08/18/2022 12:26 PM EDT Narrative Resulting Agency Comment Spec In Lab Ellis Childers MD HEMATOLOGY ORDER DELICIA Performing Organization Address City/State/[facility] Co de Phone Number [facility] [place] [address] * (ABNORMAL) Hemogram (08/18/2022 12:21 PM EDT) White Blood Cell 5.5 4.0 - 9.5 x10(3)/[facility] Red Blood Cell 4.86 4.58 - 5.54 x10(6)/[facility] Hemoglobin 15.2 13.7 - 16.5 g/dL [facility] Hematocrit 44.2 40.5 - 48.5 % [facility] Mean Cell Volume 90.9 82.9 - 93.1 [facility] Mean Cell Hemoglobin 31.3 27.5 - 32.1 pg [facility] Mean Cell Hemoglobin Concentration 34.4 32.0 - 35.7 g/dL [facility] Platelet 94(L) 145 - 357 x10(3)/[facility] RDW Standard Deviation 40.0 36.0 - 45.0 [facility] RDW coefficient of variation 12.0 11.4 - 13.8 % [facility] Mean Platelet Volume 11.9 7.6 - 12.9 [facility] NRBC% auto 0.0 % [facility] NRBC Absolute 0.000 0.000 - 0.000 x10(3)/[facility] Blood 08/18/2022 12:2 1 PM EDT 08/18/2022 12:26 PM EDT Narrative Resulting Agency Comment Spec In Lab Ellis Childers MD HEMATOLOGY ORDER DELICIA [facility] [place] [address] documented in this encounter Visit Diagnoses Diagnosis Thrombocytopenia Thrombocytopenia, unspecified documented in this encounter Care Teams Small Wind Energy Installer Relationship Specialty Start Date End Date Radha Mckeon MD [address] [place] [address] PCP - General 09/23/10 documented as of this encounter
--- OUTSIDE RECORDS SUMMARY | 2024-07-24 17:21 | XMS_ITS | Encounter Summary ---
Author Organization [facility] [place] [address] Care Team Providers Care Stage Rigger Name Role Phone Radha Mckeon MD Primary Care Provider [phone] Encounter Details Date Type Department Care Team (Latest Contact Info) Description 12/09/2022 11:00 AM EST - 12/09/2022 11:59 PM EST Hospital Encounter [place] [phone] Discharge Disposition: Home Social History Tobacco Use [...] QD 04/23/2020 fluticasone propionate (FLONASE) 50 mcg/actuation [place], Suspension INSTILL 1SPRAY IN EACH NOSTRIL TWICE [...] AM EDT Hospital Encounter [place] [address] Arrived 02/22/2025 1:30 PM EDT Appointment Hematology [place] [address] 02/22/2025 2:30 PM EDT Office Visit Hematology [place] [address] Ellis Childers MD [facility] [address] [place] [address] Felicita Landa APRN [facility] [address] [place] [address] documented as of this encounter Procedures Procedure Name Priority Date/Time Associated Diagnosis Comments PRG ILR INTERROGATION REMOTE UP TO 30 DAYS Routine 11/24/2022 2:04 AM EST documented in this encounter Results * Cardiac Device Check - Remote (11/24/2022 2:04 AM EST) Anatomical Region Laterality Modality Other 11/24/2022 2:04 AM EST Omar Corcoran MD IMPLANTABLE CARDIAC DEVICE documented in this encounter Visit Diagnoses Not on filedocumented in this encounter Care Teams Stage Rigger Relationship Specialty Start Date End Date Radha Mckeon MD [address] [place] [address] PCP - General 09/23/10 documented as of this encounter
--- OUTSIDE RECORDS SUMMARY | 2024-07-24 17:21 | XMS_ITS | Encounter Summary ---
Author Organization [facility] [place] [address] Care Team Providers Care Recreation Instructor Name Role Phone Radha Mckeon MD Primary Care Provider [phone] Encounter Details Date Type Department Care Team (Late st Contact Info) Description 05/03/2023 4:00 PM EDT Office [place] [address] Joaquin Metzger, [facility] [place] [address] Neuropathic pain of both feet; Onychodystrophy; Pain [...] Sign Reading Time Taken Comments Blood Pressure 186/105 05/03/2023 4:26 PM EDT Provider aware. Pulse 60 05/03/2023 4:26 PM EDT Temperature 36.1 ??C (96.9 ??F) 05/03/2023 4 :26 PM EDT Respiratory Rate 18 05/03/2023 4:26 PM EDT Oxygen Saturation 100% 05/03/2023 4:2 6 PM EDT Inhaled Oxygen Concentration - - Weight - - Height - - Body Mass Index - - documented in this encounter Progress Notes * Joaquin Metzger DPM - 05/03/2023 4:00 PM EDT Outpatient Podiatry Clinic Note Name: Malik Machado Age:72 y.o. MR#: [id number] Date of Service: 05/03/2023 SUBJECTIVE: Malik Machado is a very pleasant 72 y.o. male who presents to the clinic today for treatment of recurring pain in multiple toes both feet secondary to chronically dystrophic ingrown toenails. I have seen him in the past at a prior office [...] significant injury to his skin. Of note, he is co mplaining of a left-sided pain near the taoist region of his head. He says it feels like it is internal. He does relate that he may have had a TIA recently. He has not demonstrating any acute distress today but he is hypertensive when checked in the office. Allergies Allergen Reactions Zolpidem Other reaction(s): bad [...] Flecainide Other (See Comments) Adverse effect caused MS and QRS prolongation Other reaction(s): Other (See Comments) Adverse effect caused MS and QRS prolongation Other reaction(s): Other (See Comment) Past Medical History: Diagnosis Date Antiplatelet or antithrombotic long-term use apixaban Chronic back pain greater than 3 months duration Chronic pain spine, has had 3 spine surgeries High blood pressure controlled with medication Hypothyroid treated with medication Irregular heart beat afib [facility] current use of opiate analgesic oxycodone, prescribed [...] Types: Cigarettes Quit date: 11/09/1982 Years since quittin.5 Smokeless tobacco: Never Vaping Use Vaping Use: Never used Substance and Sexual Activity Alcohol use: No Drug use: Never Sexual activity: Yes Other Topics Concern Not on file Social History Narrative Not on file Social Determinants of Health Financial Resource Strain: Not on file Food Insecurity: Not on file Transportation Needs: Not on file Physical Activity: Not on file Housing Stability: Not on file Family History Problem Relation Age of Onset Heart Disease Mother Heart Disease Father Cancer Brother 58 panceratic Current Outpatient Medications on File Prior to Visit Medication Sig Dispense Refill multivitamin (THERAGRAN) Tablet Take 1 tablet by [...] PO QD fluticasone propionate (FLONASE) 50 mcg/actuation [place], Suspension INSTILL 1SPRAY IN EACH NOSTRIL TWICE [...] 0.025 % Lotion Apply topically as needed. omeprazole (PRILOSEC) 20 mg Capsule, Delayed Release(E.C.) Take 20 mg by mouth 2 times daily. verapamil (CALAN-SR) 120 mg Tablet Sustained Release Take 1 tablet by mouth daily. (Patient taking differently: Take 120 mg by mouth nightly.) 90 tablet 3 levothyroxine (Synthroid) 100 mcg Tablet Take 100 mcg by mouth daily. MULTIVITAMIN W-MINERALS/LUTEIN (CENTRUM SILVER ORAL) Take 1 tablet by mouth. baclofen (LIORESAL) 10 mg tablet Take 10 [...] palpable pedal pulses bilaterally with no significant evidenceof arterial insufficiency. Neurologic exam reveals hypersensitivity to [...] 5th right toenails, very carefully to avoid stimulating hypersensitive nerves. He tolerated this procedure very well [...] Malik. FOLLOW UP: isael Metzger DPM, [place] Cafeteria Supervisor, [facility] documented in this encounter Plan of Treatment Upcoming Encounters Date Type Department Care Team (Late st Contact Info) Description 08/18/2024 11:00 AM EDT Hospital Encounter Non-Invasive Cardiology Lab [place] [id number] Arrived 02/22/2025 1:30 PM EDT Appointment Hematology and Oncology at [place] [address] 02/22/2025 2:30 PM EDT Office Visit Hematology and Oncology at [place] [address] Ellis Childers MD [facility] DR HEMATOLOGY [place] [address] Felicita Landa APRN [facility] DR HEMAT[place] [address] documented as of this encounter Visit Diagnoses Diagnosis Neuropathic pain of both feet Onychodystrophy Other specified disease of nail Pain in toe of left foot Pain in limb Pain in toe of right foot Pain in limb documented in this encounter Care Teams Recreation Instructor Relationship Specialty Start Date End Date Radha Mckeon MD [address] [place] [address] PCP - General 09/23/10 documented as of this encounter
--- OUTSIDE RECORDS SUMMARY | 2024-07-24 17:21 | XMS_ITS | Encounter Summary ---
Author Organization [facility] [place] [address] Care Team Providers Care Summons Server Name Role Phone Radha Mckeon MD Primary Care Provider [phone] Encounter Details Date Type Department Care Team (Latest Contact Info) Description 02/25/2023 Travel Social History Tobacco Use Types Packs/Day [...] AM EDT Hospital Encounter [place] [address] Arrived 02/22/2025 1:30 PM EDT Appointment Hematology and Oncology at [place] [address] 02/22/2025 2:30 PM EDT Office Visit Hematology and Oncology at [place] [address] Ellis Childers MD [facility] DR HEMATOLOGY [place] [address] Felicita Landa APRN [facility] [address] HEMATOLOGY [place] [address] documented as of this encounter Visit Diagnoses Not on filedocumented in this encounter Care Teams Summons Server Relationship Specialty Start Date End Date Radha Mckeon MD [address] [place] [address] PCP - General 09/23/10 documented as of this encounter
--- OUTSIDE RECORDS SUMMARY | 2024-07-24 17:21 | XMS_ITS | Encounter Summary ---
Author Organization [facility] [place] [address] Care Team Providers Care Manager Educational Name Role Phone Radha Mckeon MD Primary Care Provider [phone] Encounter Details Date Type Department Care Team (Late st Contact Info) Description 04/20/2023 Telephone [place] [address] Margarette Palmer Social History Tobacco Use Types Packs/Day Years [...] Miscellaneous Notes * Telephone Encounter - Margarette Palmer - 04/20/2023 10:48 AM EDT 04/20/2023 Patient called seeing if he could get knee inj w/ a pain provider I let him know we have not seen him for his knee's and that we would need a referral w/ eval notes pertaining to his knees. We are currently scheduling new patient appts into June and he likely wouldn't get an inj till July. He stated his understanding. documented in this encounter Plan of Treatment Upcoming Encounters Date Type Department Care Team (Late st Contact Info) Description 08/18/2024 11:00 AM EDT Hospital Encounter [place] [address] Arrived 02/22/2025 1:30 PM EDT Appointment H[place]ology [place] [address] 02/22/2025 2:30 PM EDT Office Visit [place]ology [place] [address] Ellis Childers MD [facility] [address] [place] [address] Felicita Landa APRN [facility] [address] [place] [address] documented as of this encounter Visit Diagnoses Not on filedocumented in this encounter Care Teams Manager Educational Relationship Specialty Start Date End Date Radha Mckeon MD [address] [place] [address] PCP - General 09/23/10 documented as of this encounter
--- OUTSIDE RECORDS SUMMARY | 2024-07-24 17:22 | XMS_ITS | Encounter Summary ---
Author Organization [facility] [place] [address] Care Team Providers Care Internet Database Specialist Name Role Phone Radha Mckeon MD Primary Care Provider [phone] Encounter Details Date Type Department Care Team (Late st Contact Info) Description 08/04/2022 Orders Only Cardiology at [address] [phone] Diogo Robb PA [facility] [address] Encounter for loop recorder at end of battery life Social History Tobacco Use Types Packs/Day Years [...] AM EDT Hospital Encounter Non-Invasive Cardiology Lab [address] Arrived 02/22/2025 1:30 PM EDT Appointment Hematology and Oncology at [place] [address] 02/22/2025 2:30 PM EDT Office Visit Hematology and Oncology at [place] [address] Ellis Childers MD [facility] DR [place] [address] Felicita Landa APRN [facility] DR [place] [address] documented as of this encounter Visit Diagnoses Diagnosis Encounter for loop recorder at end of battery life documented in this encounter Care Teams Internet Database Specialist Relationship Specialty Start Date End Date Radha Mckeon MD [address] [place] [address] PCP - General 09/23/10 documented as of this encounter
--- OUTSIDE RECORDS SUMMARY | 2024-07-24 17:22 | XMS_ITS | Encounter Summary ---
Author Organization [facility] [place] [address] Care Team Providers Care Chain Machine Operator Name Role Phone Radha Mckeon MD Primary Care Provider [phone] Reason for Visit * Reason Comments Epistaxis Nose bleeds for the last few months. Had a severe nose bleed on Wednesday night in the ED * Consultation (Routine) - Closed Specialty Diagnoses / Procedures Referred By Becki guillory Referred To Contact Otolaryngology Diagnoses Epistaxis Josselyn Max MD [facility] [address] [facility] Otol[facility]ology [address] [place] [phone] Referral ID Status Reason Start Date Expiration Date V isits Requested Visits Authorized [id number] Closed Consult, Test & Treat 08/01/2022 08/01/2023 1 1 Encounter Details Date Type Department Care Team (Late st Contact Info) Description 08/04/2022 11:30 AM EDT Office [place] [address] Mariya Avendaño, [facility] [place] [address] H/O epistaxis; Chronic allergic rhinitis Social History Tobacco Use Types Packs/Day Years [...] - Inhaled Oxygen Concentration - - Weight 78.7 kg (173 lb 9.6 oz) 08/04/2022 11:24 AM EDT Height 180.3 cm (5' 11) 08/04/2022 11:24 AM EDT Body Mass Index 24.21 08/04/2022 11:24 AM EDT documented in this encounter Progress Notes * Mariya Avendaño APRN - 08/04/2022 11:30 AM EDT Epistaxis Date of Visit: 08/03/2022 Location of Visit: Otolaryngology Clinic, [facility] Patient: Malik Machado ([id number], 1950) Primary Care Provider: Radha Mckeon MD Referring Provider: No primary care provider on file. Reason for Visit: Malik is a 72 y.o. with history of epistaxis seen at the request of Josselyn Max History of Present Illness: this was copied from 's note on 08/01/2022 ?? Malik Machado is a 72 y.o. male with PMH Afib on Xarelto, no home O2, who presented to [facility] with anterior right epistaxis. Per discussion [...] interventions. New issues since last seen: He was seen in the ER last Wednesday when it took him several hours to getthe bleeding of the right nares to get under control. He is currently on a blood thinner. He does have nasal congestion and takes an oral antihistamine daily with Flonase. [place] and the nose bleeds are very difficult to deal with. No other bleeding issues. He is using AYR nasal gel daily. HE has Afrin at home. He has a hx of thrombocytopenia. \ Past Medical History: Other than above, see [...] or asymmetry. Trachea midline without deviation. Procedure Note: The risks, benefits, alternatives to chemical cauterization were discussed with the patient, including but not limited to discomfort, bleeding, and the need for further cauterization. Nasal Endoscopy done with no Septal Cauterization: Topical anesthetic/decongestant applied to the right nasal cavity bilaterally. Flexible scope passed into both nares revealing no other significant lesions or masses. Nasopharynx with noadenoid pad.No clear Blood vessels noted with bleeding on examNo evidence of acute recent bleeding. No Cauterization done Impression: h/o Epistaxis with rhinitis Recommendations:No cauterization done today. Hold on the Flonase. Continue with the oral antihistamine. We discussed that further episodes of epistaxis can be prevented by avoiding digital manipulation (picking, rubbing etc. ) of the nose and excessive nose-blowing. Medications that increase the risk of epistaxis such as ibuprofen, aspirin. Maintaining a moist nasal environment is important in pre venting further nosebleeds, and be accomplished by gently applying ayr nasal gel to the fleshy outer portions of the nostril and gently inhaling to coat the inside of the nostril; performing this twice daily is recommended. In addition, saline nasal spray may be used intermittently throughout the day. A humidifier at night [...] there are any concerns. Mariya Avendaño APRN [facility] Otolaryngology-Head and Neck Surgery [place], [place] [address] documented in this encounter Plan of Treatment Upcoming Encounters Date Type Department Care Team (Late st Contact Info) Description 08/18/2024 11:00 AM EDT Hospital Encounter Non-Invasive [place] [address] Arrived 02/22/2025 1:30 PM EDT Appointment [place] [address] 02/22/2025 2:30 PM EDT Office Visit [place] [address] Ellis Childers MD [facility] DR [place] [address] Felicita Landa APRN [facility] [address] [place] [address] Scheduled Referrals Name Type Priority Associated Diagnoses Orde r Schedule Referral to ENT Outpatient Referral Routine Epistaxis Ordered: 08/01/2022 documented as of this encounter Visit Diagnoses Diagnosis H/O epistaxis Personal history of other diseases of respiratory system Chronic allergic rhinitis Allergic rhinitis, cause unspecified documented in this encounter Care Teams Chain Machine Operator Relationship Specialty Start Date End Date Radha Mckeon MD [address] [place] [address] PCP - General 09/23/10 documented as of this encounter
--- OUTSIDE RECORDS SUMMARY | 2024-07-24 17:22 | XMS_ITS | Encounter Summary ---
Author Organization Formerly [facility] [place] [address] Care Team Providers Care Teacher Public Health Name Role Phone Radha Mckeon MD Primary Care Provider [phone] Reason for Referral * Home Health Care (Routine) - Closed Specialty Diagnoses / Procedures Referred By Becki guillory Referred To Contact Diagnoses Cervical radiculopathy S/P cervical spinal fusion Rey Mack MD [facility] [place] [address] [facility] & [address] [place] [address] Referral ID Status Reason Start Date Expiration Date V isits Requested Visits Authorized [id number] Closed Consult, Test & Treat 05/20/2022 11/16/2022 999 999 Reason for Visit * Auth/Cert Specialty Diagnoses / Procedures Referred By Becki guillory Referred To Contact Diagnoses Radiculopathy, cervical region Cervical radiculopathy Procedures PRO ARTHRODESIS, ANT INTERBODY,DECOMPRESSION; CERVICAL BELOW C2 PRO ARTHRD ANT INTERDY CERVCL BELW C2 EA ADDL NTRSPC PRO ANTERIOR INSTRUMENTATION 2-3 VERTEBRAL SEGMENTS PRO ALLOGRAFT FOR SPINE SURGERY ONLY STRUCTURAL ARTHRODESIS, ANT INTERBODY,DECOMPRESSION; CERVICAL BELOW C2 (WRVU 25) ARTHRODESIS ANT INTERBDY CERVCL BELOW C2 EA ADDL INTRSPACE (WRVU 6.5) ANT. SPINAL INSTRUMENTATION, 2-3 VERTEBRA, SEGMENTED (WRVU 11.94) ALLOGRAFT FOR SPINE SURGERY ONLY; STRUCTUAL (WRVU 1.81) MODIFIER GLOBUS PROVIDENCE MODIFIER CORNERSTONE MODIFIER C4 MODIFIER C5 MODIFIER C6 Referral ID Status Reason Start Date Expiration Date Visits Re quested Visits Authorized [id number] 1 1 Encounter Details Date Type Department Care Team (Latest Contact Info) Description 05/19/2022 6:06 AM EDT - 05/20/2022 2:33 PM EDT Hospital Encounter [place] [address] Rey Mack MD [facility] [place] [address] S/P cervical spinal fusion (Primary Dx); Radiculopathy of cervical region; Thrombocytopenia; Numbness and tingling in left arm; Cervical radiculopathy Discharge Disposition: Home Social History [...] Sign Reading Time Taken Comments Blood Pressure 171/135 05/20/2022 8:15 AM EDT Pulse 66 05/19/2022 12:45 PM EDT Temperature 36.6 ??C (97.9 ??F) 05/20/2022 8:15 AM ED T Respiratory Rate 18 05/20/2022 8:15 AM EDT Oxygen Saturation 98% 05/20/2022 8:15 AM EDT Inhaled Oxygen Concentration - - Weight - - Height - - Body Mass Index - - documented in this encounter Discharge Summaries * Renata Cordoba, ISSAC - 05/20/2022 12:05 PM EDT Discharge Summary Patient Name: Malik Machado Patient Age: 72 y.o. Language: Montserratian Race: White Ethnicity: Not nor Admit date: 05/19/2022 Discharge date and time: 05/20/2022 Attending Physician: Rey Mack MD Discharge Physician: Rey Mack MD Follow-up Recommendations for Providers: 1. Will restart Xarelto on POD#5 or 05/24/22. See discharge instructions for additional details. Future Appointments Date Time Provider Department Center 07/02/2022 1:30 PM Diogo Robb PA [facility] CARD 4A [facility] 08/19/2022 1:30 PM LABORATORY, TECH [facility] INF 3K [facility] 08/19/2022 2:30 PM Ellis Guy MD [facility] HEM ONC [facility] Inpatient Provider Contact Information: Rey Mack MD Spine Center: [phone] After hours and weekends, call [facility] Lamp Stack Developer, , and have the Orthopedic resident paged. Discharge Diagnoses (Hospital Problems) and Secondary Diagnoses (Chronic Problems): Active Hospital Problems Diagnosis ??? S/p C4-6 ACDF 05/19/22 ([facility]) Resolved Hospital Problems No resolved problems to display. Active Non-Hospital Problems Diagnosis ??? A-fib ??? Hypertension ??? Thrombocytopenia ??? Radiculopathy of cervical region ??? Trigger middle finger of right hand ??? s/p right long finger A1 kayla release for trigger finger 05/15/21 (Dr Duong) ??? Radiculopathy of cervical region ??? Neck pain ??? Numbness and tingling in left arm ??? History of loop recorder ??? Postoperative anemia due to acute blood loss ??? S/P right total knee arthroplasty revision - poly swab and patellar revision Moschetti 11/15/2019 ??? Thrombopenia ??? Essential hypertension ??? Paroxysmal atrial fibrillation ??? Failed total knee arthroplasty ??? Right knee pain ??? Debility ??? Lightheadedness ??? Adverse drug effects ??? History of surgery ??? S/P knee replacement ??? RBBB (right bundle branch block with left anterior fascicular block) ??? Chronic back pain, causing disability Operations/Major Procedures: 05/19/2022 Surgeon(s) and Role: * Rey Mack MD - Primary * Anthony Mohamud MD - Resident Procedure(s): 1. C4-C6 anterior cervical discectomy and fusion 2. Anterior cervical plating C4-C6 3. 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 At C5-C6, there was moderate-severe bilateral foraminal stenosis. At the conclusion of the case, bilateral C5 and C6 rootsand the spinal cord were fully decompressed. History of Presentation: Malik Machado is a 72 y.o. male who presented with approximately 2 years of neck pain radiating tohis left upper extremity in the setting of foraminal stenosis at C4-5 and C5-C6. He failed to improve despite nonoperative treatment and elected to undergo surgery after full discussion of the potential risks and benefits thereof. Hospital Course: Malik Machado was admitted for the above operation. Operative course was uneventful. On POD#1 he was allowed out of bed ad yi, with no bending or twisting. The patient was instructed to wear a Navajo J at all times. These parameters were reinforced by physical and occupational therapy. On POD#1 and was transitioned to oral pain medications and was comfortable. Immediately post op patient needed straight cath for urinary retention, on POD#1 he was voiding without difficulty. On POD#1 the dressing was dry and intact and the wound was benign. He did not have a bowel movement prior to discharge but was passing flatus and eating and drinking well. Prior to discharge the patient was afebrile, with stable vital signs and on POD#1, was deemed stable for discharge to home. Of Note: The patient is on rivaroxaban at baseline and will restart POD#5, or 05/24/22. Vital Signs at Discharge: Weight: Wt Readings from Last 1 Encounters: 04/22/22 79.8 kg (176 lb) Height: Ht Readings from Last 1 Encounters: 04/22/22 180.3 cm (5' 11) HC: HC Readings from Last 1 Encounters: No data found for HC BMI: There is no height or weight on file to calculate BMI. Last value Range last 24 hrs Temperature Temp: 36.6 ??C (97.9 ??F) Temp: [36.2 ??C (97.2 ??F)-36.9 ??C (98.4 ??F)] Heart Rate Heart Rate: 66 Heart Rate: [62-72] Blood Pressure BP: (!) 171/135 BP: (160-178)/(74-135) Respiratory Rate Resp: 18 Resp: [13-22] SpO2 SpO2: 98 % SpO2: [85 %-100 %] Functional and Cognitive Status: Patient mobilizing with cervical collar in place, cognitively intact at baseline mental status at time of discharge. Important Lab Data: Last 3 wbc, hgb, hct plt Recent Labs 05/20/22 0336 05/19/22 0642 05/18/22 0800 04/28/22 1746 04/28/22 1024 WBC 15.7* 9.6* 10.4 -- 6.7 HGB 16.9* 16.9* 16.4 -- 15.5 HCT 50.0* 49.6* -- -- 46.8 PLATELET 107* 91* 92 < > 110* < > = values in this interval not displayed. Last 3 Lytes Recent Labs 05/20/22 0336 NA 134* K 4.3 CL 99 CO2 28 BUN 24* CREATININE 1.02 Last Ca, Mg, Phos Recent Labs 05/20/22 0336 CALCIUM 9.4 Last 3 Coags No results for input(s): PT, INR, PTT in the last 168 hours. Last 3 ProBNP, Trop, CK No results for input(s): CK, TROPONINT, PROBNP in the last 168 hours. Last 3 HgbA1C No results for input(s): HA1C in the last 7068 hours. Studies: XR Cervical Spine 1 View Result Date: 05/19/2022 EXAMINATION: XR CERVICAL SPINE 1 VIEW CLINICAL HISTORY: intraoperative level confirmation (as entered by ordering provider in the order requisition) TECHNIQUE: Portable intraoperative crosstable lateral view the cervical spine. COMPARISON: Cervical radiograph from earlier today. MR the cervical spine 01/05/2022. Cervical spine radiograph 12/05/2020. FINDINGS: On the lateral view, spinal levels are seen down to C7-T1. There is partial visualization of an endotracheal tube. There is partial visualization of a temperature probe and an enteric tube. There postoperative changes status post ACDF at C4-C6. On this limited lateral view, there is no screw backout and hardware appears intact. The intervertebral spaces at both levels of the fusion. No focal vertebral body height loss. There is mild discspace narrowing at C6-7 and C7-T1. No listhesis. Postoperative changes status post ACDF at C4-6 with no immediate hardware complications. Thank you for letting us participate in the care of this patient. If you are a health care provider and have any questions regarding this report, please contact the number below. For patients who have questionsplease contact the health career professional that requested your imaging first. Cervical Spine 1 View Result Date: 05/19/2022 EXAMINATION: XR CERVICAL SPINE 1 VIEW CLINICAL HISTORY: intraoperative level confirmation TECHNIQUE: Cross table lateral portable intraoperative radiograph of the cervical spine @0850 COMPARISON: Radiographs December 05, 2020 and MRI January 15, 2022 FINDINGS/IMPRESSION: Metallic probe indicates the C4 anterior vertebral body. Multilevel spondylosis is present. Esophageal temperature probe, oroesophageal tube and endotracheal tube are intact as partially imaged. Anterior soft tissue air is concordant with the ongoing surgery. Thank you for letting us participate in the care of this patient. If you are a health care provider and have any questions regarding this report, please contact the number below. For patients who have questions please contact the health career professional that requested your imaging first. Cervical Spine 2 or 3 Views Result Date: 05/19/2022 EXAMINATION: XR CERVICAL SPINE 2 OR 3 VIEWS CLINICAL HISTORY: S/p C4-6 ACDF TECHNIQUE: AP and lateral views of the cervical spine sitting upright in support collar COMPARISON: Same day intraoperativeradiographs FINDINGS: Anterior plate, screws and interbody bone graft reduce the C4-6 fusion. Hardware is intact without adjacent lucency, fracture or spine malalignment. Surgical drain tubing and prevertebral soft tissue air are consistent with the immediately preceding surgery. Survey of skull base, maxillofacial structures and thoracic inlet is normal. Status post anterior cervical disc fusion C4-6 without radiographic finding of complication or acute abnormality. Thank you for letting us participate in the care of this patient. If you are a healthcare provider and have any questions regarding this report, please contact the number below. For patients who have questions please contact the health career professional that requested your imaging first. Pending Studies and Lab Data at Discharge: * No orders in the log * Transfusions: No Discharge Conditions/Prognosis: Stable, awake, and alert. Mobilizing as noted above, pain controlled on oral medications. Discharge to: [address] [place] [address] Updated Allergies/ADRs: Allergies Allergen Reactions ??? Zolpidem Other reaction(s): [...] Flecainide Other (See Comments) Adverse effect caused TX and QRS prolongation Other reaction(s): Other (See Comments) Adverse effect caused TX and QRS prolongation Other reaction(s): Other (See Comment) Immunizations Given this Hospitalization: Immunization History Administered Date(s) Administered ??? Influenza Vaccine, Whole 08/01/2007, 08/01/2009 ??? Pneumococcal Polyvalent 23 12/10/2007 Discharge Medications: Your Medications Continued medications with new dosing Dose Details oxyCODONE 5 mg Tab Commonly known as: Roxicodone Take 1-2 tablets by mouth every 4 hours as needed for Pain. What changed: ?? medication strength ?? how much to take ?? how to take this ?? when to take this ?? reasons to take this 5-10 mg Quantity: 42 tablet Refills: 0 verapamiL SR 120 mg Tbsr Commonly known as: Calan-SR Take 1 tablet by mouth daily. What changed: when to take this 120 mg Quantity: 90 tablet Refills: 3 Xarelto 20 mg Tab Take 1 tablet by mouth daily. Generic drug: rivaroxaban Start taking on: May 24, 2022 What changed: ?? See the new instructions. ?? These instructions start on May 24, 2022. If you are unsure what to do until then, ask your doctor or other care provider. 20 mg Refills: 0 Continued medications, unchanged Dose Details acyclovir 200 mg Cap Commonly known as: ZOVIRAX 1 capsule as needed. Indications: prn 1 capsule Refills: 0 baclofen 10 mg Tab Commonly known as: Lioresal Take 10 mg by mouth nightly as needed. 10 mg Refills: 0 Botox 200 unit Solr Inject 200 Units as directed Q 3 Months. Generic drug: OnabotulinumtoxinA 200 Units Refills: 0 CENTRUM SILVER ORAL Take 1 tablet by mouth. 1 tablet Refills: 0 diclofenac 1 % Gel Commonly known as: Voltaren Apply topically Once daily as needed. Refills: 0 Emgality Pen 120 mg/mL Pnij INJECT 1 PEN SUBCUTANEOUSLY ONCE MONTHLY Generic drug: galcanezumab-gnlm Refills: 0 fluticasone propionate 50 mcg/actuation Spsn Commonly known as: Flonase INSTILL 1SPRAY IN EACH NOSTRIL TWICE A DAY Refills: 0 lamoTRIgine 25 mg Tab Commonly known as: LaMICtal Take 50 mg by mouth 2 times daily. 50 mg Refills: 0 levothyroxine 100 mcg Tab Commonly known as: Synthroid Take 100 mcg by mouth daily. 100 mcg Refills: 0 lidocaine-prilocaine Crea Commonly known as: EMLA as needed. Refills: 0 metoprolol succinate XL 100 mg Tablet sr Commonly known as: Toprol-XL TAKE 1 AND 1/2 TABLETS BY MOUTH DAILY Quantity: 135 tablet Refills: 1 omeprazole 20 mg Cpdr Commonly known as: PriLOSEC Take 20 mg by mouth 2 times daily. 20 mg Refills: 0 polyethylene glycoL 17 gram Pwpk Commonly known as: Miralax Take 17 g by mouth as needed. 17 g Refills: 0 pregabalin 100 mg Cap Commonly known as: LYRICA Take 1 capsule by mouth 2 times daily. 1 capsule Refills: 0 senna-docusate 8.6-50 mg Tab Commonly known as: Pericolace Take 2 tablets by mouth as needed. 2 tablet Refills: 0 simvastatin 10 mg Tab Commonly known as: Zocor Take 10 mg by mouth nightly. 10 mg Refills: 0 SUMAtriptan 100 mg Tab Commonly known as: Imitrex Take 100 mg by mouth as needed for Migraine. Initial dose: 25 mg, 50 mg, or 100 mg (take with fluids). May repeat dose after 2 hours. Max daily dose: 200 mg 100 mg Refills: 0 tamsulosin 0.4 mg Cap Commonly known as: Flomax TK 1 C PO QD Refills: 0 Triamcinolone Acetonide 0.025 % Lotn Apply topically as needed. Refills: 0 zonisamide 50 mg Cap Commonly known as: ZONEGRAN TAKE 1 CAPSULE BY MOUTH EVERY NIGHT AT BEDTIME Refills: 0 STOPPED Medications acetaminophen 500 mg Tab Commonly known as: Tylenol dexAMETHasone 4 mg Tab Commonly known as: Decadron fish oil-omega-3 fatty acids with vitamin E 1,000 mg Cap Smoking Status at Discharge: Social History Tobacco Use Smoking Status Former Smoker ??? Packs/day: 2.00 ??? Years: 16.00 ??? Pack years: 32.00 ??? Types: Cigarettes ??? Quit date: 11/09/1982 ??? Years since quittin.5 Smokeless Tobacco Never Used Instructions for Rehab Providers or PCP: See below Instructions Given to Patient at Discharge: Patient Instructions Activity: 1. You may perform your daily activities as tolerated but minimize bending at the waist greater than 90 degrees, twisting around your waist, or lifting anything heavier than 5-10 lbs (about a full gallon of water.) 2. In general, guide your activity by the thought that if it hurts, don???t do it. 3. In addition, we recommend taking several walks every day after surgery and gradually increasing your distance and duration over the next 2-4 weeks. Diet: 1. Eat your normal diet, with adequate amounts of protein and fiber. 2. The pain medications you are taking can cause constipation, so increase your intake of fluids and fiber while you are taking them. 3. You should also take an ihxa-rjt-yzbekdg stool softener or laxative, such as Emily-colace or Miralax, to facilitate a bowel movement. Drivin. You are not allowed to drive if you are still requiring narcotic pain medication to manage your discomfort. 2. Since you are being sent home in a Cervical Collar, do not drive until you have been cleared by your physician at your follow-up appointment. Call the Spine Center or your Primary Care Physician if you have questions or concerns. Medication: 1. You are being discharged on a narcotic pain medication. Common side effects of this medication include drowsiness, nausea, and constipation. You should only take the smallest amount of pain medication that adequately controls your pain. 2. You may take Tylenol (acetaminophen) around the clock as directed on the package to help reduce the amount of narcotic medication you need. Do not take more than 3,000mg of acetaminophen in a 24 hour period. 3. You have had a spinal fusion surgery. DO NOT take any nonsteroidal anti- inflammatory medication (NSAID) such as Aleve, Ibuprofen, Motrin, Naprosyn, or Advil. 4. If you need a renewal of your pain medication, please contact the [facility] Prescription Lineat [phone]. PRESCRIPTION RENEWAL REQUESTS CAN TAKE UP TO 3 DAYS TO FILL. Be sure to allow for this when requesting a new prescription. The new prescription will be sent electronically to your preferred pharmacy. 5. On 05/24/22, you may restart your usual rivaroxaban (Xarelto). Navajo J Collar Instructions: 1. You are being sent home with a hard cervical collar. It must be worn at all times, including showers and while sleeping. 2. Because you are required to wear the collar at all times, you may shower as usual with the collar in place. You will need to remove the collar to dry your skin and change the pads. While sitting upright, hold you head and neck steady while the front or back of your collar is removed. You should hold your head in place until the collar is back in position. After showers you should take care to remove any residual soap from your neck and to replace the wet pads with a clean, dry pair. You willbe sent home from the hospital with extra pads and instructions on how to change them. 3. Do not put powder or lotion underneath the pads. 4. You should inspect your skin daily for redness or irritation caused by the collar. If you noticeirritation or you see areas where the hard plastic from the collar is pressing against the skin, please call the [facility] Nursing Line at the number below. 5. Wash the extra pads with mild soap, rinse well, and allow to air dry. Wound Care/Shower/Bath: 1. You have absorbable sutures under your skin that do not need to be removed. They are covered by steri-strips, gauze and a clear plastic Tegaderm dressing. 2. This dressing should stay in place until 4 days after your surgery. After 4 days, on 05/23/22, you may remove the dressing and leave the incision uncovered so long as there is no continued drainage. If there is drainage, you may replace the dressing with a clean, dry gauze held in place with tape. Any bandage over the incision should be dry at all times and should be replaced if wet. If the incision continues to drain 5 days after surgery, please call the Spine Center at the number below. 3. After the dressing is removed, 4 days after surgery, the paper strips (steri- strips) should be kept in place. After 14 days you can remove the remaining steri-strips if they have not fallen off already. 4. For the first 4 days after surgery, shower with the clear plastic Tegaderm dressing covering your incision to keep it dry. After 4 days when the dressing has been removed, you may allow water to run over the incision when you shower but do not scrub the surrounding skin. Gently pat dry with a clean, dry towel after showering. 5. Do not soak the incision underwater (i.e. lakes, pools, hot tubs, bath tubs, etc.) for at least 4 weeks until the incision has completely healed. PLEASE CALL US AT [phone] TO SPEAK WITH A SPINE CENTER NURSE IF YOU EXPERIENCE THE FOLLOWING: ?? Fevers greater than 101.5 degrees Fahrenheit ?? Chills or night sweats ?? Nausea or vomiting ?? Wound Redness or drainage after 5 days ?? New numbness or tingling in your hands or feet ?? Incontinence of bowel or bladder ?? Any questions or concerns Important Phone Numbers: Clinical issues, nurse questions, medication renewals: [phone] Mack: [phone] Evenings after 5pm and weekends you may contact the Orthopaedic resident vision mixer: [phone], askthe precision machine operator to page the Orthopaedic resident Follow Up Appointments: 1. You will have follow-up appointments at [facility] as indicated in the ???Future Appointments and Orders?? section of your discharge summary. If X-rays have been ordered for you prior to this appointment you will need to report to the Radiology department, desk 3T, 1 hour prior to your spine center appointment. 2. If you do not have a scheduled follow-up appointment listed at the time of discharge, you will be notified of your scheduled appointment on the next business day. Please call [phone] if you do not hear from us by that time, as your timely follow-up is very important to us. Future Appointments Date Time Provider Department Center 08/19/2022 1:30 PM LABORATORY, TECH [facility]F 3K [facility] 08/19/2022 2:30 PM Ellis Guy MD [facility] HEM ONC [facility] General Instructions None Future Appointments and Orders Future Appointments and Orders Future Appointments Provider Department Dept Phone 07/02/2022 1:30 PM Diogo Robb PA Cardiology at [facility] Arrive at: [facility] [employer] [facility] 4A [phone] 08/19/2022 1:30 PM LABORATORY, [facility] Hematology and Oncology at [facility] Arrive at: [facility] 3K [phone] 08/19/2022 2:30 PM Ellis Guy MD Hematology and Oncology at [facility] Arrive at: [facility] [phone] Future Orders Complete By Expires Referral to Home Health [REF34 Custom] As directed Process Instructions: If no progress note charted, please enter Clinical details in comments. Scheduling Instructions: Comments: Please evaluate Malik Machado for admission to Home Health. [address] [facility] [id number] (home) Date of : 1950 Inpatient DOCUMENTATION FOR VNA SERVICES (INCLUDING THOSE PATIENTS WITH MEDICARE COVERAGE REQUIRING HOME VNA SERVICES AND/OR HOSPICE SERVICES) PATIENT'S LOCATION: Malik Machado [address] [facility] [id number] (home) Cell: Telephone Information: Live In Companion's Name: Malik In discussion with the attending physician, it is certified that this patient is under their care and that they, or a Nurse Practitioner,Clinical Nurse specialist or Physician Wood Pattern Maker who is working directly with them, had a face to face encounter that meets the physician face to face encounter requirements with this patient on 05/20/2022 ( please enter DC date here) The encounter with the patient was in whole, or in part, for the following medical condition, whichis the primary reason for home health care services: C4- 6 ACDF In discussion with the provider, it is certified that, based on their findings, the following services are medically necessary for home health services. To provide the following care/treatments with the clinical findings supporting the need for services as follows: HOME CARE ORDERS: RN ORDERS:Assess wound or incision, vital signs, cardiopulmonary status, nutrition, hydration, elimination, meds effectiveness and management; reinforce education re health issues Brace care: cervical collar at all times PT ORDERS: Continue rehab for endurance, gait stability and strength with mobility and transfers. Home safety evaluation. Home exercise program if appropriate. OT: assess and continue rehab for managing ADL's. HOME HEALTH CARE AGENCY: [facility] [facility] [address] [address] Start of care: Within 24 to 48 hours of discharge FOR MEDICARE ONLY: (please delete this section if not Medicare) In discussion with the attending physician, it is certified that the clinical findings support thatthis patient is homebound because absences from home require considerable and taxing effort due to:Unsteady Gait, poor balance, requiring assistive devices and/or assistance of another Please note that any additional orders needs or changes will need to be obtained from this patient's PCP: Radha Mckeon MD [address] / [place] [address] All [facility]NA agencies which cover the area of patient's residence have been reviewed, either verbally jose writing, and patient/family have chosen the home health care agency noted Questions: Disciplines Requested: Nursing Physical Therapy Occupational Therapy Home Health Aide Primary Care Provider: Radha Mckeon MD [phone] Discharge References/Attachments Direct Oral Anticoagulants: Non-Vitamin K Antagonist (Montserratian) Cervical Collars: General Info (Montserratian) documented in this encounter Discharge Instructions * Patient Instructions* Janae Antonio, FINANCIAL SERVICES PROFESSIONAL - 05/19/2022 9:17 AM EDT Activity: 1. You may perform your daily activities as tolerated but minimize bending at the waist greater than 90 degrees, twisting around your waist, or lifting anything heavier than 5-10 lbs (about a full gallon of water.) 2. In general, guide your activity by the thought that if it hurts, don???t do it. 3. In addition, we recommend taking several walks every day after surgery and gradually increasing your distance and duration over the next 2-4 weeks. Diet: 1. Eat your normal diet, with adequate amounts of protein and fiber. 2. The pain medications you are taking can cause constipation, so increase your intake of fluids and fiber while you are taking them. 3. You should also take an duyw-cby-felnzsi stool softener or laxative, such as Emily-colace or Miralax, to facilitate a bowel movement. Drivin. You are not allowed to drive if you are still requiring narcotic pain medication to manage your discomfort. 2. Since you are being sent home in a Cervical Collar, do not drive until you have been cleared by your physician at your follow-up appointment. Call the [facility] Center or your Primary Care Physician if you have questions or concerns. Medication: 1. You are being discharged on a narcotic pain medication. Common side effects of this medication include drowsiness, nausea, and constipation. You should only take the smallest amount of pain medication that adequately controls your pain. 2. You may take Tylenol (acetaminophen) around the clock as directed on the package to help reduce the amount of narcotic medication you need. Do not take more than 3,000mg of acetaminophen in a 24 hour period. 3. You have had a spinal fusion surgery. DO NOT take any nonsteroidal anti- inflammatory medication (NSAID) such as Aleve, Ibuprofen, Motrin, Naprosyn, or Advil. 4. If you need a renewal of your pain medication, please contact the [facility] Center Prescription Lineat [phone]. PRESCRIPTION RENEWAL REQUESTS CAN TAKE UP TO 3 DAYS TO FILL. Be sure to allow for this when requesting a new prescription. The new prescription will be sent electronically to your preferred pharmacy. 5. On 05/24/22, you may restart your usual rivaroxaban (Xarelto). [place] Collar Instructions: 1. You are being sent home with a hard cervical collar. It must be worn at all times, including showers and while sleeping. 2. Because you are required to wear the collar at all times, you may shower as usual with the collar in place. You will need to remove the collar to dry your skin and change the pads. While sitting upright, hold you head and neck steady while the front or back of your collar is removed. You should hold your head in place until the collar is back in position. After showers you should take care to remove any residual soap from your neck and to replace the wet pads with a clean, dry pair. You willbe sent home from the hospital with extra pads and instructions on how to change them. 3. Do not put powder or lotion underneath the pads. 4. You should inspect your skin daily for redness or irritation caused by the collar. If you noticeirritation or you see areas where the hard plastic from the collar is pressing against the skin, please call the [facility] Center Nursing Line at the number below. 5. Wash the extra pads with mild soap, rinse well, and allow to air dry. Wound Care/Shower/Bath: 1. You have absorbable sutures under your skin that do not need to be removed. They are covered by steri-strips, gauze and a clear plastic Tegaderm dressing. 2. This dressing should stay in place until 4 days after your surgery. After 4 days, on 05/23/22, you may remove the dressing and leave the incision uncovered so long as there is no continued drainage. If there is drainage, you may replace the dressing with a clean, dry gauze held in place with tape. Any bandage over the incision should be dry at all times and should be replaced if wet. If the incision continues to drain 5 days after surgery, please call the Spine Center at the number below. 3. After the dressing is removed, 4 days after surgery, the paper strips (steri- strips) should be kept in place. After 14 days you can remove the remaining steri-strips if they have not fallen off already. 4. For the first 4 days after surgery, shower with the clear plastic Tegaderm dressing covering your incision to keep it dry. After 4 days when the dressing has been removed, you may allow water to run over the incision when you shower but do not scrub the surrounding skin. Gently pat dry with a clean, dry towel after showering. 5. Do not soak the incision underwater (i.e. lakes, pools, hot tubs, bath tubs, etc.) for at least 4 weeks until the incision has completely healed. PLEASE CALL US AT [phone] TO SPEAK WITH A SPINE CENTER NURSE IF YOU EXPERIENCE THE FOLLOWING: ?? Fevers greater than 101.5 degrees Fahrenheit ?? Chills or night sweats ?? Nausea or vomiting ?? Wound Redness or drainage after 5 days ?? New numbness or tingling in your hands or feet ?? Incontinence of bowel or bladder ?? Any questions or concerns Important Phone Numbers: Clinical issues, nurse questions, medication renewals: [phone] Mack: [phone] Evenings after 5pm and weekends you may contact the Orthopaedic resident vision mixer: [phone], askthe precision machine operator to page the Orthopaedic resident Follow Up Appointments: 1. You will have follow-up appointments at [facility] as indicated in the ???Future Appointments and Orders?? section of your discharge summary. If X-rays have been ordered for you prior to this appointment you will need to report to the Radiology department, desk 3T, 1 hour prior to your spine center appointment. 2. If you do not have a scheduled follow-up appointment listed at the time of discharge, you will be notified of your scheduled appointment on the next business day. Please call [phone] if you do not hear from us by that time, as your timely follow-up is very important to us. Future Appointments Date Time Provider Department Center 08/19/2022 1:30 PM LABORATORY, TECH [facility] INF 3K [facility] 08/19/2022 2:30 PM Ellis Guy MD [facility] HEM ONC [facility] * Attachments The following attachments cannot be sent through Care Everywhere. * Direct Oral Anticoagulants: Non-Vitamin K Antagonist (Montserratian) * Cervical Collars: General Info (Montserratian) documented in this encounter Medications at Time of Discharge Medication Sig Dispensed Refills Start Date End Date valACYclovir (Valtrex) 500 mg tablet 500 mg. prn 12/24/2021 acetaminophen (Tylenol) 500 mg tablet as needed. 01/16/2017 Xarelto 20 mg Tablet Take 1 tablet [...] QD 04/23/2020 fluticasone propionate (FLONASE) 50 mcg/actuation [place], Suspension INSTILL 1SPRAY IN EACH NOSTRIL TWICE [...] 10/07/2017 08/03/2023 documented as of this encounter Progress Notes * Lyric Kendrick RN - 05/20/2022 2:25 PM EDT [facility] Short Stay Unit Discharge Note All relevant discharge milestones have been met by the patent. After Visit Summary and discharge teaching reviewed with the patient. IV access has been discontinued. All personal belongings have been returned to the patient/family upon their departure from the unit. Patient has been discharged to home The patient has been discharged with home health * Renata Cordoba APRN - 05/20/2022 11:55 AM EDT ORTHOPAEDIC SURGERY INPATIENT PROGRESS NOTE Patient Name: Malik Machado Age: 72 y.o. Surgery/Issue: Procedure(s): ARTHRODESIS, ANT INTERBODY,DECOMPRESSION; CERVICAL BELOW C2 (WRVU 25) ARTHRODESIS ANT INTERBDY CERVCL BELOW C2 EA ADDL INTRSPACE (WRVU 6.5) ANT. SPINAL INSTRUMENTATION, 2-3 VERTEBRA, SEGMENTED (WRVU 11.94) ALLOGRAFT FOR SPINE SURGERY ONLY; STRUCTUAL (WRVU 1.81) MODIFIER GLOBUS PROVIDENCE MODIFIER CORNERSTONE MODIFIER C4 MODIFIER C5 MODIFIER C6 Attending: Rey Mack MD Date of surgery: 05/19/2022 SUBJECTIVE / INTERVAL HISTORY: Drain removed at bedside. 7 complete holes visualized, tip intact. Drain hole count verified by TORREY Gunter. Will continue to monitor prior to patient's afternoon anticipated discharge. Renata Cordoba APRN 05/20/2022 * Lupe De La Cruz, PT - 05/20/2022 11:05 AM EDT Physical Therapy Evaluation Patient profile: Malik Machado is a 72 y.o. male??1 Day Post-Op??s/p C4-C6 ACDF. Referred to PT for evaluation. ?? Patient with the following active problems: Past Medical History: Diagnosis Date ??? Antiplatelet or antithrombotic long-term use apixaban ??? Chronic back pain greater than 3 months duration ??? Chronic pain spine, has had 3 spine surgeries ??? High blood pressure controlled with medication ??? Hypothyroid treated with medication ??? Irregular heart beat afib ??? [facility] current use of opiate analgesic oxycodone, [...] CURVED Procedure Date: 01/14/2010 ??? JOINT REPLACEMENT [id number] ??? PACEMAKER IMPLANT loop recorder ??? PRO ALLOGRAFT FOR SPINE SURGERY ONLY STRUCTURAL Bilateral 05/19/2022 ALLOGRAFT FOR SPINE SURGERY ONLY; STRUCTUAL (WRVU 1.81) performed by Rey Mack MD at [facility] MAIN OR ??? PRO ANTERIOR INSTRUMENTATION 2-3 VERTEBRAL SEGMENTS Bilateral 05/19/2022 ANT. SPINAL INSTRUMENTATION, 2-3 VERTEBRA, SEGMENTED (WRVU 11.94) performed by Rey Mack MD at [facility] MAIN OR ??? PRO ARTHRD ANT INTERDY CERVCL BELW C2 EA ADDL NTRSPC Bilateral 05/19/2022 ARTHRODESIS ANT INTERBDY CERVCL BELOW C2 EA ADDL INTRSPACE (WRVU 6.5) performed by Rey Mack MD at [facility] MAIN OR ??? PRO ARTHRODESIS, ANT INTERBODY,DECOMPRESSION; CERVICAL BELOW C2 Bilateral 05/19/2022 ARTHRODESIS, ANT INTERBODY,DECOMPRESSION; CERVICAL BELOW C2 (WRVU 25) performed by Rey Mack MD at [facility] MAIN OR ? ? PRO DIAGNOSTIC BONE MARROW BIOPSIES & ASPIRATIONS N/A 04/22/2022 ([facility]) BONE MARROW BIOPSY AND ASPIRATION; DIAGNOSTIC performed by Ellis Guy MD at [facility] OSC ??? PRO INCISE FINGER TENDON SHEATH Right 05/15/2021 TENDON SHEATH INCISION (TRIGGER FINGER) (WRVU 3.11) performed by Jovan Duong MD at [facility] MAIN OR ??? PRO REVISE KNEE JOINT REPLACE, ALL PARTS Right 11/15/2019 @TOTAL KNEE REVISION ARTHROPLASTY, COMPLETE (WRVU 27.11) performed by Sukhjinder Jauregui MD at [facility] MAIN OR ??? 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 My is on oxygen, but yes she can drive and is coming to get me.?? My grand daughter is living with us too. Objective: Pt seen for evaluation today. Seen after OT had finished ADL's and getting history from pt. He had gotten Zofran for nausea prior to session. Pain: moderate neck pain, but manageable after meds. Vital Signs / Cardiopulmonary: Stable on room air. No c/o light headedness. Mental Status: difficult to get a handle on his social situation as his willingness to fully answerquestions was poor. Vision: nt Musculoskeletal: ROM: neck in collar, but LE's wnl Strength: at least 4/5 throughout Sensation: wnl both legs Bed Mobility: Supine to Sit: nt Sit to Supine: nt. See OT note Transfers: Sit to Stand: ind from cc and from the bed. Stand to Sit: ind Gait: Distance: 30' Could have gone farther, but had just gotten back from bathroom with nsg. Device used: fww Level of assist: supervision Gait deviations: slight uncoordinated gait, but step through, narrow [place]. Stairs: up and down 1 step with rail independently. Performed x 2 Balance: fair-good with fww, poor without it. Education/Exercise Instruction: reviewed home safety and to mobilize slowly. Keep collar on until follow up with MD. Assessment: Malik Machado was seen today for physical therapy evaluation. Pt is limited by poor generalized balance, neck ROM restrictions due to collar/surgery and generalized strength. He is a poor historian and states that he wants to go to rehab despite the fact that he has help at home and ismobilizing fairly well for home level mobility. He is mobilizing independently with fww household di stances and was able to perform stairs. Recommend a walker for home. He understands that he will need assist for lifting and driving at home. Plan: Therapy Frequency (PT): once Patient/family understand and agree with plan as stated above. Discharge Recommendations: Anticipated Discharge Disposition (PT): home with home health Consult Recommendations: none Equipment needs for home at d/c: Anticipated Equipment Needs at Discharge (PT): walker, front wheeled Patient status, treatment, and mobility recommendations have been discussed with nursing. Thank you for this consult. LUPE DE LA CRUZ, PT Pager: [phone] Physical Therapy Inpatient Rehabilitation Department Time IN / OUT: 4595-9328 Total Minutes, Physical Therapy: 20 2017 PT Evaluation Code Rationale: ?? Diagnosis & Pertinent Co-Morbidities, personal factors, and present illness affecting Plan of Care: (see above); Additional personal factors or co- morbidities that impact plan: ?? Total # of Factors: 0 1-2 3+ x ?? Examination of body system impairments, functional limitations and behaviors, and/or participation restrictions. Addressing 1-2 elements Addressing 3 + elements x Addressing 4 + elements ?? Clinical presentation: See assessment above. Stable/Uncomplicated Evolving/Fluctuating Symptoms Unstable/Unpredictable x ?? Clinical decision making of low complexity based on pt's functional performance as outlined in this evaluation. * Isis Feng I, OT - 05/20/2022 10:00 AM EDT Occupational Therapy Evaluation Patient profile: Malik Machado is a 72 y.o. male 1 Day Post-Op s/p C4-C6 ACDF. Past Medical History: Diagnosis Date ??? Antiplatelet or antithrombotic long-term use apixaban ??? Chronic back pain greater than 3 months duration ??? Chronic pain spine, has had 3 spine surgeries ??? High blood pressure controlled with medication ??? Hypothyroid treated with medication ??? Irregular heart beat afib ??? 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 JOINT REPLACEMENT [id number] ??? PACEMAKER IMPLANT loop recorder ??? PRO ALLOGRAFT FOR SPINE SURGERY ONLY STRUCTURAL Bilateral 05/19/2022 ALLOGRAFT FOR SPINE SURGERY ONLY; STRUCTUAL (WRVU 1.81) performed by Rey Mack MD at [facility] MAIN OR ??? PRO ANTERIOR INSTRUMENTATION 2-3 VERTEBRAL SEGMENTS Bilateral 05/19/2022 ANT. SPINAL INSTRUMENTATION, 2-3 VERTEBRA, SEGMENTED (WRVU 11.94) performed by Rey Mack MD at [facility] MAIN OR ??? PRO ARTHRD ANT INTERDY CERVCL BELW C2 EA ADDL NTRSPC Bilateral 05/19/2022 ARTHRODESIS ANT INTERBDY CERVCL BELOW C2 EA ADDL INTRSPACE (WRVU 6.5) performed by Rey Mack MD at [facility] MAIN OR ??? PRO ARTHRODESIS, ANT INTERBODY,DECOMPRESSION; CERVICAL BELOW C2 Bilateral 05/19/2022 ARTHRODESIS, ANT INTERBODY,DECOMPRESSION; CERVICAL BELOW C2 (WRVU 25) performed by Rey Mack MD at [facility] MAIN OR ? ? PRO DIAGNOSTIC BONE MARROW BIOPSIES & ASPIRATIONS N/A 04/22/2022 ([facility]) BONE MARROW BIOPSY AND ASPIRATION; DIAGNOSTIC performed by Ellis Guy MD at [facility] OSC ??? PRO INCISE FINGER TENDON SHEATH Right 05/15/2021 TENDON SHEATH INCISION (TRIGGER FINGER) (WRVU 3.11) performed by Jovan Duong MD at [facility] MAIN OR ??? PRO REVISE KNEE JOINT REPLACE, ALL PARTS Right 11/15/2019 @TOTAL KNEE REVISION ARTHROPLASTY, COMPLETE (WRVU 27.11) performed by Sukhjinder Jauregui MD at [facility] MAIN OR ??? 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 Objective: Seen today for OT evaluation. Cognitive Status/Behavior: ?? Behavior / Mood: alert and cooperative ?? Alert and oriented to: person, place, time and situation ?? Follows commands: 2 step and 75% of the time ?? Attention: distractible and difficulty attending to task/directions ?? Safety awareness: decreased insight into deficits Vision & Perception: ?? WNL/WFL Communication: WFL Range of motion, strength, coordination: Bilateral UEs are within functional limitations LE limitations: WFL; see PT note for further detail Sensation: no report of numbness or tingling Activities of Daily Living: Self-feeding: independent Grooming: supervision; cues for spinal precautions Dressing: pt able to don shirt and pants w supervision; utilizing figure 4 technique and mod cues for spinal precautions Bathing: anticipate mod I Toileting: Transfer: SBA FWW Hygiene: independent Functional Mobility: Supine to sit: min A towards EOB; pt reports will be sleeping in lift recliner Sit to stand: SBA Ambulation: ~40ft x2 SBA FWW; performed steps w PT; see PT note for further detail Stand to sit: SBA Sit to supine: pt left in recliner w all needs met and call szymanski within reach Balance: Sitting balance: good Standing balance: good w FWW Vitals: VSS on RA Pain: no report of pain Skin: intact Education: patient have been educated on Role of occupational therapy/rehabilitation, Transfers, Assistive device/technique, Adaptive equipment training, ADL, Positioning, Safety, Precautions/Protocol, Home Management, Balance, Recommendations and Discharge planning and verbalizes understanding. Patient status, treatment, and mobility recommendations discussed with nursing. Assessment: Pt has been seen for occupational therapy evaluation. Malik Machado presents with the following performance skill deficits and client factors: decreased activity tolerance, decreased flexibility/ROM, decreased strength, deconditioning and precautions/bracing. These performance deficitshave led to activity limitations and participation restrictions in the following areas of occupation: dressing, bathing, grooming, toileting, transfers/mobility, home management, work, driving and community mobility. However, despite the deficits listed above pt demonstrates the ability to manage own needs within precautions. Concerned for pt as he is the primary caregiver for his and will require assistance beyond pts precautions; social work following. Pt benefits from frequent cues for spinal precautions; however, with continued education throughout session pt had fair carryover of spinal precautions. Pt educated on LH AE; pt has good ROM and tolerated dressing tasks without AE. Pt will require a FWW for home. Anticipate that pt will return home with home health once medically ready. Pt has met all acute OT goals at this time. Do not anticipate further OT needs while hospitalized. Equipment Recommendations: Equipment Needs Upon Discharge (OT): walker, front wheeled Anticipated Discharge Disposition (OT): home with home health, home with supervision Other Recommendations: ?? Transfer to recliner chair and/or BR as appropriate with SBA FWW, ambulate as tolerated ?? Encourage participation in ADL's by providing set up A on tray table and physical assist only asneeded Other Recommendations: No other consults recommended at this time Plan: OT: Therapy Frequency (OT): evaluation only Total Minutes, Occupational Therapy: 60 (1 moderate complexity eval ([id number])) OT Evaluation Code Rationale: ?? Diagnosis & Pertinent Co-Morbidities affecting Plan of Care: see PMHx ?? Occupational Profile & Client History: Brief Expanded Extensive x ?? Assessment of Occupational Performance: 1-3 performance deficits 3-5 performance deficits x 5 + performance deficits ?? Clinical Decision Making: Low Moderate High x Clinical decision making of moderate complexity using standardized patient assessment instrument and measurable assessment of functional outcome. Pager: [phone] Isis Feng OT 05/20/2022 Occupational Therapy Rehabilitation Department * Rey Mack MD - 05/20/2022 6:36 AM EDT ORTHOPAEDIC SURGERY INPATIENT POST OP NOTE Patient Name: Malik Machado Age: 72 y.o. Surgery/Issue: s/p C4-C6 ACDF Attending: Dr. Mack Date of surgery: 05/19/2022 SUBJECTIVE / INTERVAL HISTORY: Patient resting comfortably. Pain well controlled. Patient denies numbness/weakness, chest pain, shortness of breath, dizziness, headache, nausea, vomiting, hoarseness. Tolerating PO, yet to void spontaneously. SCx1 overnight, voiding spontaneously this AM. Hgb 16.9. Drain 25 ON per RN reports. [place]i last night. Pain with swallowing this AM. Pre-op symptoms: neck pain radiating to LUE Pre-op symptoms currently present: N/A aside from postop localized pain FOCUSED REVIEW OF SYSTEMS: as above. Active Hospital Problems Diagnosis ??? S/p C4-6 ACDF 05/19/22 ([facility]) Resolved Hospital Problems No resolved problems to display. Active Non-Hospital Problems Diagnosis ??? A-fib ??? Hypertension ??? Thrombocytopenia ??? Radiculopathy of cervical region ??? Trigger middle finger of right hand ??? s/p right long finger A1 kayla release for trigger finger 05/15/21 (Dr Duong) ??? Radiculopathy of cervical region ??? Neck pain ??? Numbness and tingling in left arm ??? History of loop recorder ??? Postoperative anemia due to acute blood loss ??? S/P right total knee arthroplasty revision - poly swab and patellar revision Moschetti 11/15/2019 ??? Thrombopenia ??? Essential hypertension ??? Paroxysmal atrial fibrillation ??? Failed total knee arthroplasty ??? Right knee pain ??? Debility ??? Lightheadedness ??? Adverse drug effects ??? History of surgery ??? S/P knee replacement ??? RBBB (right bundle branch block with left anterior fascicular block) ??? Chronic back pain, causing disability MEDICATIONS: ??? lamoTRIgine (LaMICtal) tablet 50 mg ??? levothyroxine (Synthroid) tablet 100 mcg ??? metoprolol succinate XL (Toprol-XL) tablet 150 mg ??? pregabalin (Lyrica) capsule 75 mg ??? simvastatin (Zocor) tablet 10 mg ??? verapamiL SR (Calan-SR) tablet 120 mg ??? melatonin tablet 3 mg ??? sodium chloride 0.9 % (flush) (BD PosiFlush Normal Saline 0.9) flush 5 mL ??? sodium chloride 0.9 % (flush) (BD PosiFlush Normal Saline 0.9) flush 5-20 mL ??? lidocaine (Xylocaine) 1% (10 mg/mL) injection 3 mg ??? polyethylene glycoL (Miralax) packet 17 g ??? senna-docusate (Pericolace) 8.6-50 mg per tablet 2 tablet ??? ondansetron (pf) (Zofran) (2 mg/mL) injection 4 mg ??? oxyCODONE (Roxicodone) tablet 5 mg OR oxyCODONE (Roxicodone) tablet 10 mg OR oxyCODONE (Roxicodone) tablet 15 mg ??? gelatin adsorbable (Gelfoam) sponge ??? thrombin (Bovine) (Thrombinar) kit ??? BUpivacaine (pf) (Marcaine) (2.5 mg/mL) 0.25% injection OBJECTIVE: Temp: [36.2 ??C (97.2 ??F)-36.9 ??C (98.4 ??F)] Heart Rate: [62-72] Resp: [9-22] BP: (160-194)/(74-107) Intake/Output Summary (Last 24 hours) at 05/20/2022 0636 Last data filed at 05/20/2022 0600 Gross per 24 hour Intake 3049 ml Output 2385 ml Net 664 ml There is no height or weight on file to calculate BMI. Drain output: 20cc Exam: General: NAD, awake/alert, responds to questions Neck: No evidence of hematoma, dressing c/d/i CV: RRR Resp: Breathing comfortably, lungs CTAB Motor: Segment Muscle Action R L C5 Deltoid Shoulder Abd 5 5 C5 Biceps Elbow flexion 5 5 C6 ECRL, ECRB Wrist extension 5 5 C7 Triceps Elbow extension 5 5 C8 Hand Grasp 5 5 T1 Hand intrinsics Finger abd/adduction 5 5 Sensory: Sensation (light touch) (0=absent, 1=impaired, 2=normal) Segment location Right Left C4 top of AC joint 2 2 C5 lat side antecub fossa 2 2 C6 dorsal thumb 2 2 C7 dorsal middle finger 2 2 C8 dorsal small finger 2 2 T1 med side antecub fossa 2 2 T2 apex axilla 2 2 T3 3rd IS (intercostal space) 2 2 T4 nipple line 2 2 Lab Results Component Value Date NA 134 (L) 05/20/2022 K 4.3 05/20/2022 CL 99 05/20/2022 CO2 28 05/20/2022 BUN 24 (H) 05/20/2022 CREATININE 1.02 05/20/2022 GLUCOSE 109 05/20/2022 GLUCFASTING 105 (H) 11/23/2016 CALCIUM 9.4 05/20/2022 Lab Results Component Value Date WBC 15.7 (H) 05/20/2022 HGB 16.9 (H) 05/20/2022 HCT 50.0 (H) 05/20/2022 MCV 91.2 05/20/2022 PLATELET 107 (L) 05/20/2022 Lab Results Component Value Date INR 5.8 (CRIT) 12/25/2019 IMAGING: XR demonstrates instrumentation in appropriate position C4-6. ASSESSMENT / PLAN: Malik Machado is a 72 y.o. male 1 Day Post-Op s/p C4-C6 ACDF doing well, with some expected postoperative difficulty with swallowing, eating well. Left upper extremity symptoms nearly resolved. HTN overnight, home meds restarted this AM. Plan to mobilize with PT, monitor drain output, d/c prior to discharge if passes PT today. Activity: AAT, no b/t/l >5lbs in c-collar Closure: Resorbable sutures Dressing: Gauze, tegaderm Drain: 7-hole drain, unsutured out <30cc/shift Anticoagulation: SCDs, restart home rivaroxaban POD5 Antibiotics: Periop ancef Consults: PT/OT Dispo: Pending PT/OT Anthony Mohamud MD 05/20/2022 Future Appointments Date Time Provider Department Center 08/19/2022 1:30 PM LABORATORY, TECH [facility] [place] [facility] [facility] 08/19/2022 2:30 PM Ellis Guy MD [facility] [place] [facility] Spine Attending I have seen and examined the patient and agree with the resident's findings and plan. He reports expected surgical site pain, no UE pain. Swallowing soft food and liquids OK. Neuro intact on exam. X-rays show appropriate position of hardware. Will mobilize with PT today. Likely home later today. * Ashley Romero MD - 05/19/2022 1:20 PM EDT ORTHOPAEDIC SURGERY INPATIENT POST OP NOTE Patient Name: Malik Machado Age: 72 y.o. Surgery/Issue: s/p C4-C6 ACDF Attending: Dr. Mack Date of surgery: 05/19/2022 SUBJECTIVE / INTERVAL HISTORY: Patient resting comfortably. Pain well controlled. Patient denies numbness/weakness, chest pain, shortness of breath, dizziness, headache, nausea, vomiting, hoarseness, difficulty swallowing. Tolerating PO, yet to void spontaneously. SCx1 Pre-op symptoms: neck pain radiating to LUE Pre-op symptoms currently present: N/A aside from postop localized pain FOCUSED REVIEW OF SYSTEMS: as above. Active Hospital Problems Diagnosis ??? Radiculopathy Resolved Hospital Problems No resolved problems to display. Active Non-Hospital Problems Diagnosis ??? A-fib ??? Hypertension ??? Thrombocytopenia ??? Radiculopathy of cervical region ??? Trigger middle finger of right hand ??? s/p right long finger A1 kayla release for trigger finger 05/15/21 (Dr Duong) ??? Radiculopathy of cervical region ??? Neck pain ??? Numbness and tingling in left arm ??? History of loop recorder ??? Postoperative anemia due to acute blood loss ??? S/P right total knee arthroplasty revision - poly swab and patellar revision Sarahcheamriti 11/15/2019 ??? Thrombopenia ??? Essential hypertension ??? Paroxysmal atrial fibrillation ??? Failed total knee arthroplasty ??? Right knee pain ??? Debility ??? Lightheadedness ??? Adverse drug effects ??? History of surgery ??? S/P knee replacement ??? RBBB (right bundle branch block with left anterior fascicular block) ??? Chronic back pain, causing disability MEDICATIONS: ??? sodium chloride 0.9 % (flush) (BD PosiFlush Normal Saline 0.9) flush 5-20 mL ??? lactated ringers infusion ??? ceFAZolin (Ancef) 2 g vial attach to sodium chloride 0.9% 100 mL Mini-Bag Plus ??? lactated Ringers OBJECTIVE: Temp: [36.6 ??C (97.9 ??F)] Heart Rate: [62] Resp: [16] BP: (164)/(85) No intake or output data in the 24 hours ending 05/19/22 0809 There is no height or weight on file to calculate BMI. Drain output: 20cc Exam: General: NAD, awake/alert, responds to questions Neck: No evidence of hematoma, dressing c/d/i CV: RRR Resp: Breathing comfortably, lungs CTAB Motor: Segment Muscle Action R L C5 Deltoid Shoulder Abd 5 5 C5 Biceps Elbow flexion 5 5 C6 ECRL, ECRB Wrist extension 5 5 C7 Triceps Elbow extension 5 5 C8 Hand Grasp 5 5 T1 Hand intrinsics Finger abd/adduction 5 5 L2 Iliopsoas Hip flexion 5 5 L3 Quadriceps Knee extension 5 5 L4,5 Hamstring Knee Flexion 5 5 L4 Tibialis anterior Dorsiflexion 5 5 L5 Extensor hallucis Great toe extension 5 5 S1 Gastrocnemius, FHL Plantar flexion 5 5 Sensory: Sensation (light touch) (0=absent, 1=impaired, 2=normal) Segment location Right Left C4 top of AC joint 2 2 C5 lat side antecub fossa 2 2 C6 dorsal thumb 2 2 C7 dorsal middle finger 2 2 C8 dorsal small finger 2 2 T1 med side antecub fossa 2 2 T2 apex axilla 2 2 T3 3rd IS (intercostal space) 2 2 T4 nipple line 2 2 T5 5th IS 2 2 T6 6th IS 2 2 T7 7th IS 2 2 T8 8th IS 2 2 T9 9th IS 2 2 T10 10th iS 2 2 T11 11th iS 2 2 T12 mid inguinal ligament 2 2 L1 upper inner thigh 2 2 L2 mid-ant thigh 2 2 L3 med femoral condyle 2 2 L4 medial mal 2 2 L5 dorsum foot, 3rd MT 2 2 S1 lat heal 2 2 S2 Popliteal fossa 2 2 Lab Results Component Value Date NA 137 11/17/2019 K 4.4 11/17/2019 CL 105 11/17/2019 CO2 26 11/17/2019 BUN 18 11/17/2019 CREATININE 1.15 11/17/2019 GLUCOSE 100 11/17/2019 GLUCFASTING 105 (H) 11/23/2016 CALCIUM 8.8 11/17/2019 Lab Results Component Value Date WBC 9.6 (H) 05/19/2022 HGB 16.9 (H) 05/19/2022 HCT 49.6 (H) 05/19/2022 MCV 90.0 05/19/2022 PLATELET 91 (L) 05/19/2022 Lab Results Component Value Date INR 5.8 (CRIT) 12/25/2019 IMAGING: Intra-op lateral shows instrumentation in place at C4 vertebral body. ASSESSMENT / PLAN: Malik Machado is a 72 y.o. male Day of Surgery s/p C4-C6 ACDF. Discharge pending evaluation by PT/OT on POD1. Activity: AAT, no b/t/l >5lbs in c-collar Closure: Resorbable sutures Dressing: Gauze, tegaderm Drain: 7-hole drain, unsutured out <30cc/shift Anticoagulation: SCDs, restart home rivaroxaban POD5 Antibiotics: Periop ancef Consults: PT/OT Dispo: Pending PT/OT Ashley Romero MD 05/19/2022 Future Appointments Date Time Provider Department Center 08/19/2022 1:30 PM LABORATORY, TECH [facility] [place] [facility] [facility] 08/19/2022 2:30 PM Ellis Guy MD [facility] [place] * Marsha Graham RN - 05/19/2022 11:43 AM EDT 1047: pt arrived to unit, attached to monitors, alarms set. Hypertensive with SBP 190-200, LS clearon 6L simple mask. JOVAN flushed, incision WDL. 1150: 5mg hydralazine given for SBP > 180. 1200: st cath for 725mL. 1243: 2L NC applied for spO2 85% while sleeping. 1300: phase 2. 1345: report given to Ceasar HIRSCH. 1413: departed unit with transpo staff, on route to xray on way to [facility] 12. documented in this encounter H&P Notes * Rey Mack MD - 05/19/2022 6:59 AM EDT Patient Name: Malik Machado Patient Age: 72 y.o. Birthdate: 1950 Admit date: 05/19/2022 Attending Physician: Rey Mack MD Patient seen and examined. Agree with assessment by PCP. He cont to have neck pain radiating to LUE. On exam, ctab, rrr. Plts 89 yest, will plan on intra-op transfusion. Will proceed with surgery as planned (C4-C6 ACDF). Patient is a full-code. documented in this encounter Miscellaneous Notes * Initial Assessments - Sanaz Rao RN - 05/20/2022 12:26 PM EDT Office of Care Management Initial Assessment Sanaz Rao RN reviewed record and discussed patient with Care Team. Source of Information: Team, bedside nurse, medical record, and Patient Introduced self/reviewed role; services accepted. Reason for Hospitalization: S/p C4-6 ACDF Covid Vaccination Status: 1st, 2nd & booster (Moderna) Last COVID test: Past medical History: Past Medical History: Diagnosis Date ??? Antiplatelet or antithrombotic long-term use apixaban ??? Chronic back pain greater than 3 months duration ??? Chronic pain spine, has had 3 spine surgeries ??? High blood pressure controlled with medication ??? Hypothyroid treated with medication ??? Irregular heart beat afib ??? [facility] current use of opiate analgesic oxycodone, prescribed by PCP ??? Migraine ??? Postoperative anemia due to acute blood loss 11/17/2019 ??? Thrombocytopenia - chronic 12/16/2012 ??? Thrombocytopenia - chronic 12/16/2012 Hospitalizations Within the Past 30 Days: no previous admission in last 30 days Current Decision-Making Capacity: Self Advance Care Planning: Attempt Cardiopulmonary Resuscitation - Inpatient Received -Advanced Directive: Yes, on file Who is your DPOA-HC?: Spouse Current Coping/Education/Information Needs: patient will need education on how to do drain care andcollar care prior to discharge Current Functional Ability: Assistive Equipment Functional Status Prior to Admission: Independent Prior ADLs & IADLs: Independent with all ADLs & IADLs Home Environment: Others in the home: spouse. Current Living Arrangements: mobile home (5 steps to enter with a railing in place). Accessibility Concerns: . Resource / Environmental Concerns: Resource/Environmental Concerns: none Current DME: cane - straight, walker - rolling Home Address confirmed as: [address] [facility] [address] Social & Family Supports: All names listed below confirmed with patient as current and correct Extended Emergency Contact Information Primary Emergency Contact: Marguerite Ramos Address: [address] [place] [address] [facility] Relation: Life Partner Secondary Emergency Contact: Dave Aguilar [facility] Relation: Child Current Care Provided by: self Provides Primary Care For: significant other Caregiver if needed: none (Grand daughter is going to help with collar care) Quality of Family relationships: involved Community Resources being provided currently: none Behavioral Health History: tony Substance Use/Abuse listed: Social History Tobacco Use Smoking Status Former Smoker ??? Packs/day: 2.00 ??? Years: 16.00 ??? Pack years: 32.00 ??? Types: Cigarettes ??? Quit date: 11/09/1982 ??? Years since quittin.5 Smokeless Tobacco Never Used 0 No problems reported 1-2 Low level 3-5 Moderate level 6-8 Substantial level 9- 10 Severe level 0 to 7 points: Low risk 8 to 15 points: Medium risk 16 to 19 points: High risk 20 to 40 points: Addiction likely Other Pertinent/Service Specific Information: tony Health/Prescription Coverage: Primary Insurance: MEDICARE Payor: MEDICARE / Plan: MEDICARE PART A & B / Product Type: *No Product type* / Secondary Insurance: [employer] [facility] [place] Secondary Insurance? (Only Medicare A&B): Yes ; Prescription Coverage: Yes Preferred Pharmacy: [facility] #[id number] - [place], [place] - [address] [place] [address] [place], [place] - [address] [facility] [address] [facility] [address] [place], [place] - [address] [facility] [address] [facility] [address] [facility] [address] [facility] [address] [place] Status: Patient is a : Yes ([employer]) Are you enrolled in the [facility] for your healthcare?: No Primary Care Provider: Radha Mckeon MD [phone] Patient/Caregiver Goals of Treatment: return home when medically ready Potential Needs for Transition of Care: home health care Agency Referrals: I have met with the patient to: ?? discuss discharge planning needs. ?? provide the [facility], Office of Care Management letter from the [employer] pertaining to rehabreferrals. ?? provide a letter describing our affiliations within the [facility] and educate about their right to choose where referrals are sent. ?? provide a list of Home Health Agencies / Durable Medical Equipment vendors which serve their preferred geographic area. ?? provided patient with [facility] Star Quality Rating handout. They have requested referrals to: [facility]. [address] [place] [id number] Note routed to a Scroll Saw Operator who will communicate referrals to facilities and provide any required information. Transportation: no concerns Transportation Anticipated: family or friend will provide Concerns to be Addressed: denies needs/concerns at this time Assessment: Patient is admitted to ortho service for S/p C4-6 ACDF Plan: patient is medically ready for discharge A member of the Care Management team will continue to monitor progress, follow for continuity of care and assist with transition of care planning. Sanaz MARTINEZ, RN Phone: [phone] Pager: [phone] * Brief Op Note - Rey Mack MD - 05/19/2022 11:17 AM EDT Brief Operative Note Patient Name: Malik Machado : [id number] MR#: [id number] Case Date: 05/19/2022 Surgeon: Surgeon(s) and Role: * Rey Mack MD - Primary * Anthony Mohamud MD - Resident Preoperative diagnosis: Cervical radiculopathy Postoperative diagnosis: Cervical radiculopathy Procedure: C4-C6 ACDF with anterior plate and structural allografts ([id number], [id number], [id number], 73549 x 2) Anesthesia: General Findings: There was severe left-sided foraminal stenosis at C4-C5. At C5-C6, there was moderate-severe bilateral foraminal stenosis. At the conclusion of the case, bilateral C5 and C6 roots and the spinal cord were fully decompressed. No CSF. Complications: None Intake: 1.6 L crystalloid Output: Estimated Blood Loss: 50 mL Drains: Anterior cervical x 1 Specimens removed during surgery: None Disposition: awakened from anesthesia, extubated and taken to the recovery room in a stable condition, having suffered no apparent untoward event. Condition: doing well without problems Attestation: Case Date: 05/19/2022 I was present and I participated during the entire procedure (does not need to include opening and closing). * Op Note - Rey Mack MD - 05/19/2022 8:14 AM EDT [facility] Operative Note Patient Name: Malik Machado : [id number] MR#: [id number] Case Date: 05/19/2022 Surgeon: Surgeon(s) and Role: * Rey Mack MD - Primary * Anthony Mohamud MD - Resident Preoperative diagnosis: Cervical radiculopathy Postoperative diagnosis: Cervical radiculopathy Procedure: 1. C4-C6 anterior cervical discectomy and fusion 2. Anterior cervical plating C4-C6 3. Structural allograft placement C4-C5 and C5-C6 Implants: [place] Anesthesia: General Operative findings: There was severe left-sided foraminal stenosis at C4-C5. At C5-C6, there was moderate-severe bilateral foraminal stenosis. At the conclusion of the case, bilateral C5 and C6 rootsand the spinal cord were fully decompressed. Indications for procedure: Mr. Machado is a 72-year-old male who presented with approximately 2 years of neck pain radiating to his left upper extremity in the setting of foraminal stenosis at C4-5 and C5-C6. He failed to improve despite nonoperative treatment and elected to undergo surgery after full discussion of the potential risks and benefits thereof. Description of procedure: The patient was taken to the operating room, and general anesthesia was administered. He was positioned supine on the operating room table with his neck slightly extended and his arms tucked by his side. A timeout was performed to identify the patient and the planned procedure. He received preoperative antibiotics. A transverse incision was made at approximately the C5 level from the midline to the medial border of the left sternocleidomastoid. The electrocautery was used to dissect down to the level of the platysma, which was divided in line with the incision. Cranial and caudal platysmal flaps were raised. The deep cervical fascia was incised along the medial border of the sternocleidomastoid, and the plane between the sternocleidomastoid laterally and the strap muscles medially was developed. Deeper dissection between the carotid sheath laterally and the trachea and esophagus medially brought us to the prevertebral fascia. This was divided and bluntly elevated off the C4-C6 vertebrae. A distractionpin was placed in C4, and a lateral x-ray was obtained at demonstrating our level. Longus coli muscles were elevated from C4-C6 bilaterally. The self-retaining retractor blades were placed. The endotracheal balloon was deflated and then reinflated to decrease pressure on the recurrent laryngeal nerve. A distraction pin was placed in C6, and distraction was applied across the interspaces. We then turned our attention to the discectomies. We started at C5-C6. An annulotomy was created, and a complete discectomy was then performed using a combination of the curettes and pituitary. The posterior osteophytes were thinned with a high-speed bur. PLL was divided in line with its fibers andtaken down with a Kerrison. The posterior osteophytes were removed. Foraminotomies were performed bilaterally. Following discectomy, we confirmed that the spinal cord and bilateral exiting nerve roots were fully decompressed. Hemostasis was achieved in the epidural space and Floseal. A similar discectomy was performed at C4-C5. We found that a 6 mm lordotic trials fit appropriately. The wound was copiously irrigated. 6mm lordotic allografts were positioned within the disc spaces. The distraction pins were removed, and the holes were bone waxed. Morselized local bone graft placed lateral to the allografts. An appropriate sized plate was placed along the anterior aspect of the spine. Yard Stocker holes were created using 14 mm drill bits. 14 mm self-tapping, variable angle screws were then placed. These were locked to the plate using the torque-limited screwdriver. A lateral x-ray was obtained demonstrating appropriate position of the grafts and hardware. Hemostasis was achieved. A drain was placed on the anterior aspect of the spine, exiting through the incision. The platysma and subcutaneous tissues were closed using interrupted 3-0 Vicryl. The skinwas closed using 4-0 Monocryl in a running, subcuticular fashion. Incision was dressed with Mastisol, Steri-Strips, sterile gauze, and a Tegaderm. A hard collar was applied. The patient was transferred to the hospital bed and awakened from general anesthesia. He was taken to the recovery room in stable condition. There were no evident complications. Attestation: Case Date: 05/19/2022 I was present and I participated during the entire procedure (does not need to include opening and closing). REY MACK MD 05/19/2022 documented in this encounter Plan of Treatment Upcoming Encounters Date Type Department Care Team (Late st Contact Info) Description 08/18/2024 11:00 AM EDT Hospital Encounter [place] [address] Arrived 02/22/2025 1:30 PM EDT Appointment Hematology [place] [address] 02/22/2025 2:30 PM EDT Office Visit Hematology [place] [address] Ellis Childers MD [facility] HEMATOLOGY [place] [address] Felicita Landa APRN [facility] HEMATOLOGY [place] [address] Scheduled Referrals Name Type Priority Associated Diagnoses Orde r Schedule Referral to Home Health Outpatient Referral Routine Cervical radiculopathy S/P cervical spinal fusion Ordered: 05/20/2022 documented as of this encounter Procedures Procedure Name Priority Date/Time Associated Diagnosis Comments IMPLANTABLE DEVICES SCAN 05/21/2022 12:00 AM EDT HEMOGRAM Routine 05/20/2022 3:36 AM EDT DIFFERENTIAL, AUTOMATED Routine 05/20/20 3:36 AM EDT HC VENIPUNCTURE Routine 05/20/2022 3:36 AM EDT BASIC METABOLIC PANEL Routine 05/20/2022 3:36 AM EDT XR CERVICAL SPINE 1 VIEW Routine 05/19/2022 10:17 AM EDT XR CERVICAL SPINE 1 VIEW Routine 05/19/2022 8:52 AM EDT TYPE AND SCREEN VALIDITY Routine 05/19/2022 8:27 AM EDT ABORH RECHECK STATUS Routine 05/19/2022 8:27 AM EDT ANTIBODY SCREEN MANUAL Routine 8:27 AM EDT ABORH TYPE MANUAL Routine 05/19/2022 8:2 7 AM EDT MODIFIER C6 05/19/2022 7:24 AM EDT Radiculopathy of cervical region MODIFIER C5 05/19/2022 7:24 AM EDT Radiculopathy of cervical region MODIFIER C4 05/19/2022 7:24 AM EDT Radiculopathy of cervical region MODIFIER CORNERSTONE 05/19/2022 7:24 AM EDT Radiculopathy of cervical region MODIFIER GLOBUS [facility] 05/19/2022 7:24 AM EDT Radiculopathy of cervical region Allograft For Spine Surgery Only Structural ([id number]) 05/19/2022 7:24 AM EDT Radiculopathy of cervical region Anterior Instrumentation 2-3 Vertebral Segments ([id number]) 05/19/2022 7:24 AM EDT Radiculopathy of cervical region Arthrd Ant Interdy Cervcl Belw C2 Ea Addl Ntrspc ([id number]) 05/19/2022 7:24 AM EDT Radiculopathy of cervical region Arthrodesis, Ant Interbody,Decompression ; Cervical Below C2 ([id number]) 05/19/2022 7:24 AM EDT Radiculopathy of cervical region PREPARE PLATELETS, APHERESIS Routine 05/19/2022 6:50 AM EDT HEMOGRAM STAT 05/19/2022 6:42 AM EDT Thrombocytopenia DIFFERENTIAL, AUTOMATED STAT 05/19/20 6:42 AM EDT Thrombocytopenia HC CBC,PLT & AUTO DIFF STAT 6:42 AM EDT Thrombocytopenia ARTHRODESIS ANT INTERBDY CERVCL BELOW C2 EA ADDL INTRSPACE Routine 05/19/2022 6:09 AM EDT Radiculopathy of cervical region ARTHRODESIS, ANT INTERBODY,DECOMPRESSION ; CERVICAL BELOW C2 Routine 05/19/2022 6:09 AM EDT Radiculopathy of cervical region ANT. SPINAL INSTRUMENTATION, 2-3 VERTEBRA, SEGMENTED Routine 05/19/2022 6:09 AM EDT Radiculopathy of cervical region ALLOGRAFT FOR SPINE SURGERY ONLY;STRUCTUAL Routine 05/19/2022 6:09 AM EDT Radiculopathy of cervical region LAB SCAN 05/19/2022 12:00 AM EDT documented in this encounter Results * SCAN DOC: IMPLANTABLE DEVICES (05/21/2022 12:00 AM EDT) Unknown MEDIA MGR SCAN EXT O RDR/RSLT * (ABNORMAL) Differential, Automated (05/20/2022 3:36 AM EDT) Neutrophil % 84.4 % [facility] Neutrophil Absolute 13.28(H) 1.70 - 6.10 x10(3)/ L [facility] Lymph % 5.5 % [facility] Lymphocytes Abs 0.9 0.9 - 3.2 x10(3)/[facility] LABORAT[facility] Monocyte % 9.4 % [facility] Monocyte Abs 1.5(H) 0.3 - 0.9 x10(3)/[facility] LABORATORY Eos % 0.0 % [facility] Eosinophils Abs 0.0 0.0 - 0.4 x10(3)/[facility] LABORATORY Basophil % 0.2 % [facility] Baso Absolute 0.0 0.0 - 0.1 x10(3)/[facility] LABORATORY Immature Gran % 0.50 % [facility] Comment: Immature granulocytes(IG's)percentage and absolute count will include metamyelocytes, myelocytes, and promyelocytes. Blood smears from CBCs yielding IG's will be scanned manually for concordance. If this scan disagrees with the automated IG or if promyelocytes are noted, a manual differential will be performed. Immature Gran Absolute 0.08(H) 0.00 - 0.04 x10(3)/ L [facility] Blood 05/20/2022 3:36 AM EDT 05/20/2022 3:40 AM EDT Narrative Resulting Agency Comment Spec In Lab Anthony Mohamud MD HEMATOLOGY ORDERABLE S [facility] [place] [address] * (ABNORMAL) Hemogram (05/20/2022 3:36 AM EDT) Pathologist [facility] White Blood Cell 15.7(H) 4.0 - 9.5 x10(3)/ L [facility] Red Blood Cell 5.48 4.58 - 5.54 x10(6)/ L [facility] Hemoglobin 16.9(H) 13.7 - 16.5 g/dL [facility] Hematocrit 50.0(H) 40.5 - 48.5 % [facility] Mean Cell Volume 91.2 82.9 - 93.1 fL [facility] Mean Cell Hemoglobin 30.8 27.5 - 32.1 pg [facility] Mean Cell Hemoglobin Concentration 33.8 32.0 - 35.7 g/dL [facility] Platelet 107(L) 145 - 357 x10(3)/[facility] RDW Standard Deviation 41.4 36.0 - 45.0 [facility] RDW coefficient of variation 12.3 11.4 - 13.8 % [facility] Mean Platelet Volume 11.2 7.6 - 12.9 [facility]ORY NRBC% auto 0.0 % [facility] NRBC Absolute 0.000 0.000 - 0.000 x10(3)/[facility] Blood 05/20/2022 3:36 AM EDT 05/20/2022 3:40 AM EDT Narrative Resulting Agency Comment Spec In Lab Anthony Mohamud MD HEMATOLOGY ORDERABLE S [facility] [place] [address] * (ABNORMAL) Basic Metabolic Panel (non-fasting) (05/20/2022 3:36 AM EDT) [facility] Glucose 109 65 - 199 mg/dL [facility] Comment:Diabetes: >=200 mg/d L plus symptoms Blood Urea Nitrogen 24(H) 10 - 20 mg/dL [facility] Creatinine 1.02 0.80 - 1.50 mg/dL [facility] Sodium 134(L) 135 - 145 mmol/L [facility] Potassium 4.3 3.5 - 5.0 mmol/L [facility] Comment: Please note: ??Patients with WBC >100,000 may have falsely elevated Potassium levels. ??For accurate Potassium quantification in these patients send serum separator tube (gold top) for subsequent determinations. ??Contact the Clinical Chemistry Laboratory if there are any questions. Chloride 99 98 - 107 mmol/L [facility] Carbon Dioxide 28 22 - 31 mmol/L [facility] Anion Gap 7 5 - 15 mmol/L [facility] Calcium 9.4 8.5 - 10.5 mg/dL [facility] Est Glomerular Filtration Rate 79 >=60 mL/min/1. 73 m?? [facility] Comment: This patient's estimated [...] and symptoms in addition to eGFR. Blood 05/20/2022 3:36 AM EDT 05/20/2022 3:40 AM EDT Narrative Resulting Agency Comment Spec In Lab Rey Mack MD CHEMISTRY ORDERABLES [facility] [place] [address] * XR Cervical Spine 2 or 3 Views (05/19/2022 2:25 PM EDT) Anatomical Region Laterality Modality C-spine N/A Digital Radiogra phy Impressions 05/19/2022 3:17 PM EDT Status post anterior cervical disc fusion C4-6 without radiographic finding of complication or acute abnormality. Thank you for letting us participate in the care of this patient. ??If you are a health care provider and have any questions regarding this report, please contact the number below. ??For patients who have questions please contact the health career professional that requested your imaging first. ? Narrative 05/19/2022 3:17 PM EDT EXAMINATION: XR CERVICAL SPINE 2 OR 3 VIEWS CLINICAL HISTORY: S/p C4-6 ACDF TECHNIQUE: AP and lateral views of the cervical spine sitting upright in support collar COMPARISON: Same day intraoperative radiographs FINDINGS: Anterior plate, screws and interbody bone graft reduce the C4-6 fusion. Hardware is intact without adjacent lucency, fracture or spine malalignment. Surgical drain tubing and prevertebral soft tissue air are consistent with the immediately preceding surgery. Survey of skull base, maxillofacial structures and thoracic inlet is normal. Procedure Note Lisa Aguilar MD - 05/19/2022 EXAMINATION: XR CERVICAL SPINE 2 OR 3 VIEWS CLINICAL HISTORY: S/p C4-6 ACDF TECHNIQUE: AP and lateral views of the cervical spine sitting upright in supportcollar COMPARISON: Same day intraoperative radiographs FINDINGS: Anterior plate, screws and interbody bone graft reduce the C4-6 fusion.Hardware is intact without adjacent lucency, fracture or spine malalignment.Surgical drain tubing and prevertebral soft tissue air are consistent with the immediately preceding surgery. Survey of skull base, maxillofacial structures and thoracic inlet isnormal. IMPRESSION Status post anterior cervical disc fusion C4-6 without radiographicfinding of complication or acute abnormality. Thank you for letting us participate in the care of this patient. If youare a health care provider and have any questions regarding this report,please contact the number below. For patients who have questions please contactthe health career professional that requested your imaging first. Rey Mack MD IMG DX ORDERABLES * XR Cervical Spine 1 View (05/19/2022 10:17 AM EDT) Anatomical Region Laterality Modality C-spine N/A Digital Radiogra phy Impressions 05/19/2022 10:46 AM EDT Postoperative changes status post ACDF at C4-6 with no immediate hardware complications. Thank you for letting us participate in the care of this patient. ??If you are a health care provider and have any questions regarding this report, please contact the number below. ??For patients who have questions please contact the health career professional that requested your imaging first. ? Narrative 05/19/2022 10:46 AM EDT EXAMINATION: XR CERVICAL SPINE 1 VIEW CLINICAL HISTORY: intraoperative level confirmation (as entered by ordering provider in the order requisition) TECHNIQUE: Portable intraoperative crosstable lateral view the cervical spine. COMPARISON: Cervical radiograph from earlier today. MR the cervical spine 01/05/2022. Cervical spine radiograph 12/05/2020. FINDINGS: On the lateral view, spinal levels are seen down to C7-T1. There is partial visualization of an endotracheal tube. There is partial visualization of a temperature probe and an enteric tube. There postoperative changes status post ACDF at C4-C6. On this limited lateral view, there is no screw backout and hardware appears intact. The intervertebral spaces at both levels of the fusion. No focal vertebral body height loss. There is mild disc space narrowing at C6-7 and C7-T1. No listhesis. Procedure Note Jia Hair MD - 05/19/2022 EXAMINATION: XR CERVICAL SPINE 1 VIEW CLINICAL HISTORY: intraoperative level confirmation (as entered byordering provider in the order requisition) TECHNIQUE: Portable intraoperative crosstable lateral view the cervical spine. COMPARISON: Cervical radiograph from earlier today. MR the cervical spine 01/05/2022.Cervical spine radiograph 12/05/2020. FINDINGS: On the lateral view, spinal levels are seen down to C7-T1. There ispartial visualization of an endotracheal tube. There is partial visualization ofa temperature probe and an enteric tube. There postoperative changes status post ACDF at C4-C6. On this limitedlateral view, there is no screw backout and hardware appears intact. Theintervertebral spaces at both levels of the fusion. No focal vertebral body height loss. There is mild disc space narrowing atC6-7 and C7-T1. No listhesis. IMPRESSION Postoperative changes status post ACDF at C4-6 with no immediatehardware complications. Thank you for letting us participate in the care of this patient. If youare a health care provider and have any questions regarding this report,please contact the number below. For patients who have questions please contactthe health career professional that requested your imaging first. Rey Mack MD IMG DX ORDERABLES * XR Cervical Spine 1 View (05/19/2022 8:52 AM EDT) Anatomical Region Laterality Modality C-spine N/A Digital Radiogra phy Impressions 05/19/2022 9:58 AM EDT FINDINGS/IMPRESSION: Metallic probe indicates the C4 anterior vertebral body. Multilevel spondylosis is present. Esophageal temperature probe, oroesophageal tube and endotracheal tube are intact as partially imaged. Anterior soft tissue air is concordant with the ongoing surgery. Thank you for letting us participate in the care of this patient. ??If you are a health care provider and have any questions regarding this report, please contact the number below. ??For patients who have questions please contact the health career professional that requested your imaging first. ? Narrative 05/19/2022 9:58 AM EDT EXAMINATION: XR CERVICAL SPINE 1 VIEW CLINICAL HISTORY: intraoperative level confirmation TECHNIQUE: Cross table lateral portable intraoperative radiograph of the cervical spine @0850 COMPARISON: Radiographs December 05, 2020 and MRI January 15, 2022 Procedure Note Lisa Aguilar MD - 05/19/2022 EXAMINATION: XR CERVICAL SPINE 1 VIEW CLINICAL HISTORY: intraoperative level confirmation TECHNIQUE: Cross table lateral portable intraoperative radiograph of the cervicalspine @0850 COMPARISON: Radiographs December 05, 2020 and MRI January 15, 2022 IMPRESSION FINDINGS/IMPRESSION: Metallic probe indicates the C4 anterior vertebral body. Multilevel spondylosis is present. Esophageal temperature probe,oroesophageal tube and endotracheal tube are intact as partially imaged. Anterior softtissue air is concordant with the ongoing surgery. Thank you for letting us participate in the care of this patient. If youare a health care provider and have any questions regarding this report,please contact the number below. For patients who have questions please contactthe health career professional that requested your imaging first. Rey Mack MD IMG DX ORDERABLES * Type and Screen Validity (05/19/2022 8:27 AM EDT) T&S only valid at [facility] Comment:This Type and Screen result is only valid at the [facility] Blood Venous Draw / Unknown 05/19/2022 8:27 AM EDT 05/19/2022 8:34 AM EDT Narrative Resulting Agency Comment Spec In Lab Rey Mack MD BLOOD BANK LAB ORDER DELICIA [facility] [place] [address] * ABORH Recheck Status (05/19/2022 8:27 AM EDT) ABORH Type Recheck Completed [facility] Blood Venous Draw / Unknown 05/19/2022 8:27 AM EDT 05/19/2022 8:34 AM EDT Narrative Resulting Agency Comment Spec In Lab Rey Mack MD BLOOD BANK LAB ORDER DELICIA [facility] [place] [address] * Antibody screen manual (05/19/2022 8:27 AM EDT) AB Screen Interp Negative [facility] Blood Venous Draw / Unknown 05/19/2022 8:27 AM EDT 05/19/2022 8:34 AM EDT Narrative Resulting Agency Comment Spec In Lab Rey Mack MD BLOOD BANK LAB ORDER DELICIA [facility] [place] [address] * ABORh Type Manual (05/19/2022 8:27 AM EDT) Expires at [id number] on: 05/22/2022 [facility] ABORH Type O Pos [facility] Blood Venous Draw / Unknown 05/19/2022 8:27 AM EDT 05/19/2022 8:34 AM EDT Narrative Resulting Agency Comment Spec In Lab Rey Mack MD BLOOD BANK LAB ORDER DELICIA Performing Organization Address [facility]/ZIP Co de Phone Number [facility] [place] [address] * Prepare Platelets, Apheresis (05/19/2022 6:50 AM EDT) Dispensed? Yes [facility] Blood 05/19/2022 6:50 AM EDT 05/19/2022 6:50 AM EDT Narrative Resulting Agency Comment Spec In Lab Rey Mack MD BLOOD BANK PRODUCT O RDERABLES Performing Organization Address [facility] Co de Phone Number [facility] [place] [address] * (ABNORMAL) Differential, Automated (05/19/2022 6:42 AM EDT) Neutrophil % 67.5 % [facility] Neutrophil Absolute 6.50(H) 1.70 - 6.10 x10(3)/mc L [facility] Lymph % 16.3 % [facility] Lymphocytes Abs 1.6 0.9 - 3.2 x10(3)/mc L [facility] Monocyte % 15.6 % [facility] Monocyte Abs 1.5(H) 0.3 - 0.9 x10(3)/mc L [facility] Eos % 0.1 % [facility] Eosinophils Abs 0.0 0.0 - 0.4 x10(3)/mc L [facility] Basophil % 0.1 % [facility] Baso Absolute 0.0 0.0 - 0.1 x10(3)/mc L [facility] Immature Gran % 0.40 % [facility] Comment: Immature granulocytes(IG's)percentage and absolute count will include metamyelocytes, myelocytes, and promyelocytes. Blood smears from CBCs yielding IG's will be scanned manually for concordance. If this scan disagrees with the automated IG or if promyelocytes are noted, a manual differential will be performed. Immature Gran Absolute 0.04 0.00 - 0.04 x10(3)/mc L [facility] Blood 05/19/2022 6:42 AM EDT 05/19/2022 6:47 AM EDT Narrative Resulting Agency Comment Spec In Lab Anthony Mohamud MD HEMATOLOGY ORDERABLE S [facility] [place] [address] * (ABNORMAL) Hemogram (05/19/2022 6:42 AM EDT) White Blood Cell 9.6(H) 4.0 - 9.5 x10(3)/mc L [facility] Red Blood Cell 5.51 4.58 - 5.54 x10(6)/mc L [facility] Hemoglobin 16.9(H) 13.7 - 16.5 g/dL [facility] Hematocrit 49.6(H) 40.5 - 48.5 % [facility] Mean Cell Volume 90.0 82.9 - 93.1 fL [facility] Mean Cell Hemoglobin 30.7 27.5 - 32.1 pg [facility] Mean Cell Hemoglobin Concentration 34.1 32.0 - 35.7 g/dL [facility] Platelet 91(L) 145 - 357 x10(3)/mc L [facility] RDW Standard Deviation 41.6 36.0 - 45.0 [facility] RDW coefficient of variation 12.6 11.4 - 13.8 % [facility] Mean Platelet Volume 11.9 7.6 - 12.9 fL [facility] NRBC% auto 0.0 % [facility] NRBC Absolute 0.000 0.000 - 0.000 x10(3)/mc L [facility] Blood 05/19/2022 6:42 AM EDT 05/19/2022 6:47 AM EDT Narrative Resulting Agency Comment Spec In Lab Anthony Mohamud MD HEMATOLOGY ORDERABLE S [facility] [place] [address] * SCAN DOC: LAB (05/19/2022 12:00 AM EDT) Unknown MEDIA MGR SCAN EXT O RDR/RSLT documented in this encounter Visit Diagnoses Diagnosis S/p C4-6 ACDF 05/19/22 ([facility])- Primary Neuralgia, neuritis, and radiculitis, unspecified Radiculopathy of cervical region Brachial neuritis or radiculitis nos Thrombocytopenia Thrombocytopenia, unspecified Numbness and tingling in left arm Disturbance of skin sensation Cervical radiculopathy Brachial neuritis or radiculitis nos S/P cervical spinal fusion Arthrodesis status Numbness and tingling in left arm Disturbance of skin sensation documented in this encounter Admitting Diagnoses Diagnosis Radiculopathy Neuralgia, neuritis, and radiculitis, unspecified documented in this encounter Administered Medications Inactive Administered Medications - up to 3 most recent administrations Medication Order MAR Action Action Date Dose Rate Site acetaminophen (Tylenol) tablet 1,000 mg 1,000 mg, Oral, ONCE, 1 dose, On Wed05/19/22 at 0645, Administer with SIP of H2O only. Maximum dose of acetaminophen is 4,000 mg from all sources in 24 hours., Day of Surgery (Day of Procedure), Routine Given 05/19/2022 6:57 AM EDT 1,000 mg acetaminophen (Tylenol) tablet 1,000 mg 1,000 mg, Oral, EVERY 8 HOURS SCHEDULED, First dose on Wed05/20/22 at 1400, Until Discontinued, Maximum dose of acetaminophen is 4000 mg from all sources in 24 hours. When ordered for pain, acetaminophen should be given even when other ordered pain medications are indicated. , Routine Given 05/20/2022 1:09 PM EDT 1,000 mg hydrALAZINE (Apresoline) (20 mg/mL) injection 5 mg 5 mg, Intravenous, EVERY 30 MIN PRN, 5 doses, Starting on Wed05/19/22 at 1140, Until Wed05/19/22 at 1303, High Blood Pressure, for SBP>180, hold if MAP<70 or SBP<120 or DBP<50, PACU Recovery, Routine Given 05/19/2022 11:51 AM EDT 5 mg HYDROmorphone (Dilaudid) (2 mg/mL) multi-dose injection solution 0.4 mg 0.4 mg, Intravenous, EVERY 10 MIN PRN, Starting on Wed05/19/22 at 1030, Until Wed05/19/22 at 1303, Pain, For Moderate to Severe Pain (6-10 out of 10), Hold for respiratory rate less than 10 per minute. Maximum dose 3 mg over one hour including administrations in the OR. If multiple pain medications are ordered, start with HYDROmorphone or morphine and use fentaNYL for breakthrough pain, PACU Recovery, Routine Given 05/19/2022 12:40 PM EDT 0.4 mg Given 05/19/2022 12:31 PM EDT 0.4 mg Given 05/19/2022 12:20 PM EDT 0.4 mg labetaloL (Normodyne) (5 mg/mL) injection solution 10 mg 10 mg, Intravenous, EVERY 30 MIN PRN, 3 doses, Starting on Wed05/19/22 at 1104, Until Wed05/19/22 at 1303, High Blood Pressure, use for SBP>170, hold if HR<50 or SBP<100 or DBP<50, PACU Recovery, Routine Given 05/19/2022 11:13 AM EDT 1 0 mg lamoTRIgine (LaMICtal) tablet 50 mg 50 mg, Oral, 2 TIMES DAILY, First dose on Wed05/20/22 at 0900, Until Discontinued, Routine Given 05/20/2022 8:42 AM EDT 50 mg levothyroxine (Synthroid) tablet 100 mcg 100 mcg, Oral, EVERY MORNING, First dose on Wed05/20/22 at 0700, Until Discontinued, Routine Given 05/20/2022 6:41 AM EDT 100 mcg lidocaine (Xylocaine) 1% (10 mg/mL) injection 3 mg 3 mg (0.3 mL), Subcutaneous, ONCE PRN, 1 dose, Starting on Wed05/19/22 at 1437, Until Wed05/20/22 at 1633, for discomfort with PIV insertion, Recovery (Recovery-Hospital Unit), Routine metoprolol succinate XL (Toprol-XL) tablet 150 mg 150 mg, Oral, DAILY, First dose on Wed05/20/22 at 0900, Until Discontinued, DO NOT CRUSH OR OPEN, Routine Given 05/20/2022 8:41 AM EDT 150 mg ondansetron (pf) (Zofran) (2 mg/mL) injection 4 mg 4 mg, Intravenous, EVERY 8 HOURS PRN, Starting on Wed05/19/22 at 1437, Until Wed05/20/22 at 1633, Nausea, If multiple antiemetics are ordered, use ondansetron first, prochlorperazine second, metoclopramide third., Recovery (Recovery-Hospital Unit) Given 05/20/2022 9:18 AM EDT 4 mg ondansetron ODT (Zofran-ODT) disintegrating tablet 4 mg 4 mg, Oral, EVERY 8 HOURS PRN, Starting on Wed05/20/22 at 0914, Until Wed05/20/22 at 1633, Nausea, Please use oral first if patient able to tolerate PO, Routine oxyCODONE (Roxicodone) tablet 10 mg 10 mg, Oral, EVERY 4 HOURS PRN, Starting on Wed05/19/22 at 1149, Until Wed05/20/22 at 1633, Pain, moderate pain (4-6), For moderate pain (4-6). Do not exceed 15 mg in 4 hours. If pain not relieved, call provider., Recovery (Recovery-Hospital Unit), Routine Given 05/20/2022 1:10 PM EDT 10 mg Given 05/20/2022 6:41 AM EDT 10 mg Given 05/19/2022 8:11 PM EDT 10 mg oxyCODONE (Roxicodone) tablet 15 mg 15 mg, Oral, EVERY 4 HOURS PRN, Starting on Wed05/19/22 at 1149, Until Wed05/20/22 at 1633, Pain, severe pain (7-10), For severe pain (7-10). Do not exceed 15 mg in 4 hours. If pain not relieved, call provider., Recovery (Recovery-Hospital Unit), Routine Given 05/20/2022 12:27 AM EDT 15 mg oxyCODONE (Roxicodone) tablet 15 mg 15 mg, Oral, ONCE, 1 dose, On Wed05/19/22 at 1600, Please time next dose off of this, Routine Given 05/19/2022 3:15 PM EDT 15 mg oxyCODONE (Roxicodone) tablet 5 mg 5 mg, Oral, EVERY 4 HOURS PRN, Starting on Wed05/19/22 at 1149, Until Wed05/20/22 at 1633, Pain, mild pain (1-3), For mild pain (1-3). Do not exceed 15 mg in 4 hours. If pain not relieved, call provider, Recovery (Recovery-Hospital Unit), Routine polyethylene glycoL (Miralax) packet 17 g 17 g, Oral, 2 TIMES DAILY, First dose on Wed05/19/22 at 2100, Until Discontinued, Recovery (Recovery-Hospital Unit), Routine Given 05/20/2022 8:43 AM EDT 17 g pregabalin (Lyrica) capsule 75 mg 75 mg, Oral, 2 Times Daily, First dose on Wed05/20/22 at 0900, Until Discontinued, Routine Given 05/20/2022 8:41 AM EDT 75 mg senna-docusate (Pericolace) 8.6-50 mg per tablet 2 tablet 2 tablet, Oral, 2 TIMES DAILY, First dose on Wed05/19/22 at 2100, Until Discontinued, Recovery (Recovery-Hospital Unit), Routine Given 05/20/2022 8:42 AM EDT 2 tablets Given 05/19/2022 8:11 PM EDT 2 tablets sodium chloride 0.9 % (flush) (BD PosiFlush Normal Saline 0.9) flush 5 mL 5 mL, Intravenous, 2 TIMES DAILY, First dose on Wed05/19/22 at 2100, Until Discontinued, Recovery (Recovery-Hospital Unit), Routine Given 05/19/2022 8:11 PM EDT 5 mLs sodium chloride 0.9 % (flush) (BD PosiFlush Normal Saline 0.9) flush 5-20 mL 5-20 mL, Intravenous, EVERY 1 MIN PRN, Starting on Wed05/19/22 at 1437, Until Wed05/20/22 at 1633, flush, Flush pertains to all indwelling lines. Flush per protocol found in the job aid using the link provided on this medication record., Recovery (Recovery-Hospital Unit), Routine documented in this encounter Active and Recently Administered Medications Times are shown in EDT. Scheduled Medication Order 05/18/2022 05/19/2022 05/20/2022 acetaminophen (Tylenol) tablet 1,000 mg (COMPLETED) 1,000 mg, Oral, ONCE, 1 dose, On Wed05/19/22 at 0645, Administer with SIP of H2O only. Maximum dose of acetaminophen is 4,000 mg from all sources in 24 hours., Day of Surgery (Day of Procedure), Routine 0657 (Given - Provider: Veronika Swanson RN) acetaminophen (Tylenol) tablet 1,000 mg 1,000 mg, Oral, EVERY 8 HOURS SCHEDULED, First dose on Wed05/20/22 at 1400, Until Discontinued, Maximum dose of acetaminophen is 4000 mg from all sources in 24 hours. When ordered for pain, acetaminophen should be given even when other ordered pain medications are indicated. , Routine 1309 (Given - Provid er: Lyric Kendrick RN) ceFAZolin (Ancef) 2 g vial attach to sodium chloride 0.9% 100 mL Mini-Bag Plus (COMPLETED) 2 g, Intravenous, EVERY 3 HOURS, 1 dose, First dose on Wed05/19/22 at 0645, Administer over 30 Minutes, Re-dose after 3 hours., Intra-Operative (Intra-Procedure), Indication for (Active or Suspected): Prophylaxis 0757 (New Bag - Provider: Abelardo Mercado DO) lamoTRIgine (LaMICtal) tablet 50 mg 50 mg, Oral, 2 TIMES DAILY, First dose on Wed05/20/22 at 0900, Until Discontinued, Routine 0842 (Given - Provid er: Lyric Kendrick RN) levothyroxine (Synthroid) tablet 100 mcg 100 mcg, Oral, EVERY MORNING, First dose on Wed05/20/22 at 0700, Until Discontinued, Routine 0641 (Given - Provid er: Jonathan T Gile, RN) melatonin tablet 3 mg 3 mg, Oral, NIGHTLY, First dose on Wed05/20/22 at 2100, Until Discontinued, Routine metoprolol succinate XL (Toprol-XL) tablet 150 mg 150 mg, Oral, DAILY, First dose on Wed05/20/22 at 0900, Until Discontinued, DO NOT CRUSH OR OPEN, Routine 0841 (Given - Provid er: Lyric Kendrick RN) oxyCODONE (Roxicodone) tablet 15 mg (COMPLETED) 15 mg, Oral, ONCE, 1 dose, On Wed05/19/22 at 1600, Please time next dose off of this, Routine 1515 (Given - Provider: Artie Coulter RN - Comment: Ordering physician directed me to give this medication AT ONCE FOR HIS 08/10 PAIN.) polyethylene glycoL (Miralax) packet 17 g 17 g, Oral, 2 TIMES DAILY, First dose on Wed05/19/22 at 2100, Until Discontinued, Recovery (Recovery-Hospital Unit), Routine 2099 (Not Given - Provider: Malia Kellogg LPN - Reason: Patient/family refused) 0843 (Given - Provider: Lyric Kendrick RN) pregabalin (Lyrica) capsule 75 mg 75 mg, Oral, 2 Times Daily, First dose on Wed05/20/22 at 0900, Until Discontinued, Routine 840 (Given - Provid er: Lyric Kendrick RN) senna-docusate (Pericolace) 8.6-50 mg per tablet 2 tablet 2 tablet, Oral, 2 TIMES DAILY, First dose on Wed05/19/22 at 2100, Until Discontinued, Recovery (Recovery-Hospital Unit), Routine 2010 (Given - Provider: Malia Kellogg LPN) 0842 (Given - Provider: Lyric Kendrick RN) simvastatin (Zocor) tablet 10 mg 10 mg, Oral, NIGHTLY, First dose on Wed05/20/22 at 2100, Until Discontinued sodium chloride 0.9 % (flush) (BD PosiFlush Normal Saline 0.9) flush 5 mL 5 mL, Intravenous, 2 TIMES DAILY, First dose on Wed05/19/22 at 2100, Until Discontinued, Recovery (Recovery-Hospital Unit), Routine 2010 (Given - Provider: Malia Kellogg LPN) 0900 (Not Given - Provider: Lyric Kendrick RN - Reason: See comment - Comment: already done this AM) verapamiL SR (Calan-SR) tablet 120 mg 120 mg, Oral, NIGHTLY, First dose on Wed05/20/22 at 2100, Until Discontinued, DO NOT CRUSH OR OPEN, Routine PRN Medication Order 05/18/2022 05/19/2022 05/20/2022 BUpivacaine (pf) (Marcaine) (2.5 mg/mL) 0.25% injection (CANCELED) ONCE PRN, Starting on Wed05/19/22 at 1034, Until Wed05/20/22 at 1633, Intra-Operative (Intra-Procedure), Routine 1034 (Given - Provider: Rey Mack MD) gelatin adsorbable (Gelfoam) sponge (CANCELED) ONCE PRN, Starting on Wed05/19/22 at 1006, Until Wed05/20/22 at 1633, Intra-Operative (Intra-Procedure) 1006 (Given - Provider: Rey Mack MD) hydrALAZINE (Apresoline) (20 mg/mL) injection 5 mg (CANCELED) 5 mg, Intravenous, EVERY 30 MIN PRN, 5 doses, Starting on Wed05/19/22 at 1140, Until Wed05/19/22 at 1303, High Blood Pressure, for SBP>180, hold if MAP<70 or SBP<120 or DBP<50, PACU Recovery, Routine 1151 (Given - Provider: Marsha Graham RN) HYDROmorphone (Dilaudid) (0.5 mg/0.5 mL) injection syringe 0.2 mg 0.2 mg, Intravenous, EVERY 4 HOURS PRN, Starting on Wed05/19/22 at 1452, Until Wed05/20/22 at 0251, Pain, For acute pain 9-10 not resolved by oxy, Routine HYDROmorphone (Dilaudid) (2 mg/mL) multi-dose injection solution 0.4 mg (CANCELED)(Linked Group 1) 0.4 mg, Intravenous, EVERY 10 MIN PRN, Starting on Wed05/19/22 at 1030, Until Wed05/19/22 at 1303, Pain, For Moderate to Severe Pain (6-10 out of 10), Hold for respiratory rate less than 10 per minute. Maximum dose 3 mg over one hour including administrations in the OR. If multiple pain medications are ordered, start with HYDROmorphone or morphine and use fentaNYL for breakthrough pain, PACU Recovery, Routine 1220 (Given - Provider: Marsha Graham RN)1231 (Given - Provider: Marsha Graham RN)1240 (Given - Provider: Marsha Graham RN) labetaloL (Normodyne) (5 mg/mL) injection solution 10 mg (CANCELED) 10 mg, Intravenous, EVERY 30 MIN PRN, 3 doses, Starting on Wed05/19/22 at 1104, Until Wed05/19/22 at 1303, High Blood Pressure, use for SBP>170, hold if HR<50 or SBP<100 or DBP<50, PACU Recovery, Routine 1113 (Given - Provider: Regine Escudero RN) lidocaine (Xylocaine) 1% (10 mg/mL) injection 3 mg 3 mg (0.3 mL), Subcutaneous, ONCE PRN, 1 dose, Starting on Wed05/19/22 at 1437, Until Wed05/20/22 at 1633, for discomfort with PIV insertion, Recovery (Recovery-Hospital Unit), Routine ondansetron (pf) (Zofran) (2 mg/mL) injection 4 mg 4 mg, Intravenous, EVERY 8 HOURS PRN, Starting on Wed05/19/22 at 1437, Until Wed05/20/22 at 1633, Nausea, If multiple antiemetics are ordered, use ondansetron first, prochlorperazine second, metoclopramide third., Recovery (Recovery-Hospital Unit) 0918 (Given - Provid er: Lyric Kendrick RN) ondansetron ODT (Zofran-ODT) disintegrating tablet 4 mg 4 mg, Oral, EVERY 8 HOURS PRN, Starting on Wed05/20/22 at 0914, Until Wed05/20/22 at 1633, Nausea, Please use oral first if patient able to tolerate PO, Routine oxyCODONE (Roxicodone) tablet 10 mg(Linked Group 2) 10 mg, Oral, EVERY 4 HOURS PRN, Starting on Wed05/19/22 at 1149, Until Wed05/20/22 at 1633, Pain, moderate pain (4-6), For moderate pain (4-6). Do not exceed 15 mg in 4 hours. If pain not relieved, call provider., Recovery (Recovery-Hospital Unit), Routine 121 (Given - Provider: Marsha Graham RN)2010 (Given - Provider: Malia Kellogg LPN) 26 (See Alternative - Provider: Jonathan Viramontes RN)06 (Given - Provider: Jonathan Viramontes RN)1310 (Given - Provider: Lyric Kendrick, TORREY) oxyCODONE (Roxicodone) tablet 15 mg(Linked Group 2) 15 mg, Oral, EVERY 4 HOURS PRN, Starting on Wed05/19/22 at 1149, Until Wed05/20/22 at 1633, Pain, severe pain (7-10), For severe pain (7-10). Do not exceed 15 mg in 4 hours. If pain not relieved, call provider., Recovery (Recovery-Hospital Unit), Routine 121 (See Alternative - Provider: Marsha Graham RN)2010 (See Alternative - Provider: Mlaia Kellogg LPN) 26 (Given - Provider: Jonathan Viramontes RN)06 (See Alternative - Provider: Jonathan Viramontes RN)1310 (See Alternative - Provider: Lyric Kendrick, TORREY) oxyCODONE (Roxicodone) tablet 5 mg(Linked Group 2) 5 mg, Oral, EVERY 4 HOURS PRN, Starting on Wed05/19/22 at 1149, Until Wed05/20/22 at 1633, Pain, mild pain (1-3), For mild pain (1-3). Do not exceed 15 mg in 4 hours. If pain not relieved, call provider, Recovery (Recovery-Hospital Unit), Routine 1219 (See Alternative - Provider: Marsha Graham RN)2010 (See Alternative - Provider: Malia Kellogg LPN) 26 (See Alternative - Provider: Jonathan Viramontes RN)06 (See Alternative - Provider: Jonathan Viramontes RN)1310 (See Alternative - Provider: Lyric Kendrick RN) sodium chloride 0.9 % (flush) (BD PosiFlush Normal Saline 0.9) flush 5-20 mL 5-20 mL, Intravenous, EVERY 1 MIN PRN, Starting on Wed05/19/22 at 1437, Until Wed05/20/22 at 1633, flush, Flush pertains to all indwelling lines. Flush per protocol found in the job aid using the link provided on this medication record., Recovery (Recovery-Hospital Unit), Routine thrombin (Bovine) (Thrombinar) kit (CANCELED) ONCE PRN, Starting on Wed05/19/22 at 1006, Until Wed05/20/22 at 1633, Intra-Operative (Intra-Procedure) 1006 (Given - Provider: Rey Mack MD) Linked Groups Order Group 1: HYDROmorphone (Dilaudid) (2 mg/mL) multi-dose injection solution 0.2 mg (CANCELED) 0.2 mg, Intravenous, EVERY 10 MIN PRN, Starting on Wed05/19/22 at 1030, Until Wed05/19/22 at 1303, Pain, For Mild to Moderate Pain (1-5 out of 10), Hold for respiratory rate less than 10 per minute. Maximum dose 3 mg over one hour including administrations in the OR. If multiple pain medications are ordered, start with HYDROmorphone or morphine and use fentaNYL for breakthrough pain, PACU Recovery, Routine Or HYDROmorphone (Dilaudid) (2 mg/mL) multi-dose injection solution 0.4 mg (CANCELED)Jump to med 0.4 mg, Intravenous, EVERY 10 MIN PRN, Starting on Wed05/19/22 at 1030, Until Wed05/19/22 at 1303, Pain, For Moderate to Severe Pain (6-10 out of 10), Hold for respiratory rate less than 10 per minute. Maximum dose 3 mg over one hour including administrations in the OR. If multiple pain medications are ordered, start with HYDROmorphone or morphine and use fentaNYL for breakthrough pain, PACU Recovery, Routine Group 2: oxyCODONE (Roxicodone) tablet 5 mgJump to med 5 mg, Oral, EVERY 4 HOURS PRN, Starting on Wed05/19/22 at 1149, Until Wed05/20/22 at 1633, Pain, mild pain (1-3), For mild pain (1-3). Do not exceed 15 mg in 4 hours. If pain not relieved, call provider, Recovery (Recovery-Hospital Unit), Routine Or oxyCODONE (Roxicodone) tablet 10 mgJump to med 10 mg, Oral, EVERY 4 HOURS PRN, Starting on Wed05/19/22 at 1149, Until Wed05/20/22 at 1633, Pain, moderate pain (4-6), For moderate pain (4-6). Do not exceed 15 mg in 4 hours. If pain not relieved, call provider., Recovery (Recovery-Hospital Unit), Routine Or oxyCODONE (Roxicodone) tablet 15 mgJump to med 15 mg, Oral, EVERY 4 HOURS PRN, Starting on Wed05/19/22 at 1149, Until Wed05/20/22 at 1633, Pain, severe pain (7-10), For severe pain (7-10). Do not exceed 15 mg in 4 hours. If pain not relieved, call provider., Recovery (Recovery-Hospital Unit), Routine documented in this encounter Care Teams Teacher Public Health Relationship Specialty Start Date End Date Radha Mckeon MD [address] [place] [address] PCP - General 09/23/10 documented as of this encounter
--- OUTSIDE RECORDS SUMMARY | 2024-07-24 17:22 | XMS_ITS | Encounter Summary ---
Author Organization [facility] [place] [address] Care Team Providers Care Digital Strategy Director Name Role Phone Radha Mckeon MD Primary Care Provider [phone] Encounter Details Date Type Department Care Team (Late st Contact Info) Description 06/19/2022 Telephone [place] [address] Jia Warren Social History Tobacco [...] * Telephone Encounter - Jia Warren - 06/19/2022 12:34 PM EDT Pt called went to far with qtip, has hearing loss, no drainage. Will need HT & visit can you please suggest scheduling for urgency? Thank you Jia documented in this encounter Plan of Treatment Upcoming Encounters Date Type Department Care Team (Late st Contact Info) Description 08/18/2024 11:00 AM EDT Hospital Encounter Non-[place] [address] Arrived 02/22/2025 1:30 PM EDT Appointment Hematology and Oncology at [place] [phone] 02/22/2025 2:30 PM EDT Office Visit Hematology and Oncology at [place] [phone] Ellis Childers MD [facility] [address] [place] [address] Felicita Landa APRN [facility] [place] [address] documented as of this encounter Visit Diagnoses Not on filedocumented in this encounter Care Teams Digital Strategy Director Relationship Specialty Start Date End Date Radha Mckeon MD [address] [place] [address] PCP - General 09/23/10 documented as of this encounter
--- OUTSIDE RECORDS SUMMARY | 2024-07-24 17:22 | XMS_ITS | Encounter Summary ---
Author Organization [place] [address] Care Team Providers Care Office Copy Selector Name Role Phone Radha Mckeon MD Primary Care Provider [phone] Encounter Details Date Type Department Care Team (Late st Contact Info) Description 08/04/2022 Telephone Cardiology at [address] [address] Malia Tsai, RN Social History Tobacco Use Types Packs/Day [...] encounter Miscellaneous Notes * Telephone Encounter - Malia Tsai RN - 08/04/2022 2:35 PM EDTSummary: Pre Procedure Instructions: ILR explant + ILR reimplant EP EMISSIONS INSPECTOR COORDINATION CHECKLIST TC to pt to relay pre procedure instructions. Unable to reach at number on file. LVM with all the details of procedure. Sent instructions to Patient Portal via Qiniu message as well. Patient Name: Malik Machado Patient Performing Farm Manager: Salomón Gan Referring Provider: Diogo Robb Date of Procedure: 08/10/22 Arrival Time/ Case Time: 12:30 pm / 1:30 pm Check In Location: [facility]er Hand Desk 4W Date Patient was Called: 08/04/22 Procedure: ILR explant + Reimplant Company: V[employer] Orders: Yes Lab Orders: Yes - lab orders pended for Dr. Gan's signature Anesthesia: MOD DischargePlan/Disposition: SAME DAY DISCHARGE Med Instructions: Anticoag Type: Xarelto HIBICLENS?: Yes COVID TEST?: No - same day discharge Contrast Allergy: No DM: No Coming from an assisted living facility?: No Any recent S/S of infection (fevers, on oral ABX)?: No Other Instructions: Clear liquids (water, apple juice, christina becca) OK up until 2 hrs prior to procedure, nothing to eatafter midnight on day of procedure.Same Day will call 08/07. Will be going home same day , understands that they will need furniture delivery driver on day of discharge documented in this encounter Plan of Treatment Upcoming Encounters Date Type Department Care Team (Late st Contact Info) Description 08/18/2024 11:00 AM EDT Hospital Encounter Non-[place] [address] Arrived 02/22/2025 1:30 PM EDT Appointment Hematology [place] [phone] 02/22/2025 2:30 PM EDT Office Visit Hematology [place] [phone] Ellis Childers MD [facility] DR HEMATOLOGY [place] [address] Felicita Landa APRN [facility] DR HEMATOLOGY [place] [address] documented as of this encounter Visit Diagnoses Diagnosis Paroxysmal atrial fibrillation Atrial fibrillation documented in this encounter Care Teams Office Copy Selector Relationship Specialty Start Date End Date Radha Mckeon MD [address] [place] [address] PCP - General 09/23/10 documented as of this encounter
--- OUTSIDE RECORDS SUMMARY | 2024-07-24 17:22 | XMS_ITS | Encounter Summary ---
Author Organization [facility] [place] [address] Care Team Providers Care Correctional Officer Captain Name Role Phone Radha Mckeon MD Primary Care Provider [phone] Encounter Details Date Type Department Care Team (Late st Contact Info) Description 05/22/2022 Telephone [place] [address] Kareem Mckeon, BRASS PICKLER Social History Tobacco Use Types Packs/Day Years [...] encounter Miscellaneous Notes * Telephone Encounter - Kareem Mckeon MSW - 05/26/2022 12:12 PM EDTSummary: Discussed Short-Term Disability information OFFICE of CARE MANAGEMENT CCM Mr. Machado contacted Shift Lab Technician and discussed his concerns regarding Short- term disability through his employer. Mr. Machado stated he received a message from his Employer Human Resource team stating his Short-Term was not approved. Mr. Machado stated he has forms signed by Dr. Clayton regarding his medical treatment and is unsure whether or not his employer need the forms. Mr. Machado discussed with Shift Lab Technician contacting [employer] to discuss whether or not additional information is required. Mr. Machado provided Shift Lab Technician with the contact information to include the Plan number and Medical Leave number. Shift Lab Technician informed Mr. Machado she would follow up a ccordingly. There are no other concerns to address at this time. SOY Kemp documented in this encounter Plan of Treatment Upcoming Encounters Date Type Department Care Team (Late st Contact Info) Description 08/18/2024 11:00 AM EDT Hospital Encounter Non-Invasive [place] [phone] Arrived 02/22/2025 1:30 PM EDT Appointment Hematology [place] [address] 02/22/2025 2:30 PM EDT Office Visit Hematology [place] [phone] Ellis Childers MD [facility] [address] [place] [address] Felicita Landa APRN [facility] [address] [place] [address] documented as of this encounter Visit Diagnoses Not on filedocumented in this encounter Care Teams Correctional Officer Captain Relationship Specialty Start Date End Date Radha Mckeon MD [address] [place] [address] PCP - General 09/23/10 documented as of this encounter
--- OUTSIDE RECORDS SUMMARY | 2024-07-24 17:22 | XMS_ITS | Encounter Summary ---
Author Organization [facility] [address] Care Team Providers Care Product Test Specialist Name Role Phone Radha Mckeon MD Primary Care Provider [phone] Encounter Details Date Type Department Care Team (Latest Contact Info) Description 08/10/2022 12:26 PM EDT - 08/10/2022 6:01 PM EDT Hospital Encounter [place] [address] Salomón Gan MD [facility] [place] [address] Encounter for loop recorder at end of battery life Discharge Disposition: Home Social History Tobacco Use [...] place to sleep or slept in a longterm (including now)? No 04/01/2022 Sex and Gender Information Value Date Recorded Sex Assigned at Not on file Gender Identity Not on file Sexual Orientation Not on file documented as of this encounter Last Filed Vital Signs Vital Sign Reading Time Taken Comments Blood Pressure 142/77 08/10/2022 5:15 PM EDT Pulse 52 08/10/2022 12:59 PM EDT Temperature 37 ??C (98.6 ??F) 08/10/2022 5:07 PM EDT Respiratory Rate 16 08/10/2022 5:07 PM EDT Oxygen Saturation 96% 08/10/2022 5:15 PM EDT Inhaled Oxygen Concentration - - [...] the best. Warmly, Your care team at [facility] * Attachments The following attachments cannot be sent through Care Everywhere. * Implantable Neurosurgery Research Director: Post-op (Kyrgyz) * Implantable Neurosurgery Research Director: General Info (Kyrgyz) documented in this encounter Medications at Time [...] QD 04/23/2020 fluticasone propionate (FLONASE) 50 mcg/actuation [place], Suspension INSTILL 1SPRAY IN EACH NOSTRIL TWICE [...] Cardiac Electrophysiology Patient ID Malik Machado [id number] C/c: syncope, palpitations History Mr. Machado is [...] History of surgery --S/p pyloric stenosis surgery 1951, appendectomy 1969, right carpal tunnel surgery 1974, spinal fusion 1993 (redo back surgery 1995, 1998), umbilical hernia repair 1997, left carpal tunnel repair 2002, left elbow surgery 2004, right total knee replacement 2009. ??? S/P knee replacement SURGERY DATE: 01/14/2010 MICHAEL CHAVEZ MD PROCEDURE PERFORMED: Right total knee arthroplasty. IMPLANTS USED: All implants were from the [employer] total knee system. 1. A size 4 [...] needed. ??? fluticasone propionate (FLONASE) 50 mcg/actuation [place], Suspension INSTILL 1SPRAY IN EACH NOSTRIL TWICE [...] agreement. ? Dr. Garrett Benson, electrophysiology attending ([id number]) documented in this encounter Plan of Treatment Upcoming Encounters Date Type Department Care Team (Late st Contact Info) Description 08/18/2024 11:00 AM EDT Hospital Encounter Non-[place]vasive [place] [address] Arrived 02/22/2025 1:30 PM EDT Appointment Hematology [place] [address] 02/22/2025 2:30 PM EDT Office Visit Hematology [place] [address] Ellis Childers MD [facility] DR HEMATOLOGY [place] [address] Felicita Landa APRN [facility] HEMATOLOGY [place] [address] documented as of this encounter Procedures Procedure [...] PM EDT LOOP RECORDER EXPLANT/LOOP RECORDER IMPLANT Pug Machine Operator: Garrett Benson MD Fellow: Ty Miranda MD [...] participated in the entire procedure. Generator data: Cost Accountant Model No. Serial No. New Generator Medtronic LNQ22 [id number] Removed generator Medtronic LNQ11 [id number] Sense data: Sensed wave (mV) Ventricle 0.45 [...] of the above report: Garrett Benson MD S Cardiac Electrophysiology 08/10/2022 10:03 PM Procedure Note Garrett Benson MD - 08/10/2022 LOOP RECORDER EXPLANT/LOOP RECORDER IMPLANT Pug Machine Operator: Garrett Benson MD Fellow: Ty Miranda MD [...] the participated in theentire procedure. Generator data: Cost Accountant Model No. Serial No. New Generator Medtronic LNQ22 [id number] Removed generator Medtronic LNQ11 [id number] Sense data: Sensed wave (mV) Ventricle 0.45 [...] 1615 (New Bag - Prov ider: Kate A Miryam, RN - Comment: administered by Jordin Walters RN)1645 (Due: Stopped - Provider: Kate Witt RN) lidocaine-EPINEPHrine (2% - 1:100,000) injection vial 30 mL (COMPLETED) 30 mL, Intradermal, ONCE, 1 dose, On Wed08/10/22 at 1315, Warning Vesicant/Irritant Medication , EP (Intra-Procedure), Routine 1615 (Given - Provid er: Kate Witt RN - Comment: administered by Drs. Benson and Ruth) documented in this encounter Care Teams Product Test Specialist Relationship Specialty Start Date End Date Radha Mckeon MD [address] [place] [address] PCP - General 09/23/10 documented as of this encounter
--- OUTSIDE RECORDS SUMMARY | 2024-07-24 17:22 | XMS_ITS | Encounter Summary ---
Author Organization [facility] [place] [address] Care Team Providers Care Sales Person Name Role Phone Radha Mckeon MD Primary Care Provider [phone] Encounter Details Date Type Department Care Team (Late st Contact Info) Description 06/23/2022 2:30 PM EDT Office Visit Audiology at [address] [address] Mariela Hernandez, NAFISA [facility] [place] [address] Left ear pain; Dizziness; Sensorineural hearing loss (SNHL) of left ear with unrestricted hearing of right ear Social History Tobacco Use Types Packs/Day Years [...] as of this encounter Progress Notes * Mariela Hernandez AUD - 06/23/2022 2:30 PM EDT [place] [address] PPE used during visit: Goggles, Level 2 mask Malik Machado, 72 y.o., was seen on 06/23/2022 for an audiologic evaluation in conjunction with Mariya Avendaño APRN in Otolaryngology. Please refer to the electronic audiogram listed under Procedures in Chart Review for findings, impressions and recommendations. Enclosure: Audiogram NAFISA Davies [place] [id number] documented in this encounter Plan of Treatment Upcoming Encounters Date Type Department Care Team (Late st Contact Info) Description 08/18/2024 11:00 AM EDT Hospital Encounter Non[place] [address] Arrived 02/22/2025 1:30 PM EDT Appointment Hematology [place] [address] 02/22/2025 2:30 PM EDT Office Visit Hematology [place] [phone] Ellis Childers MD [facility] DR HEMATOLOGY [place] [address] Felicita Landa APRN [facility] [place]OLOGY [place] [address] documented as of this encounter Procedures Procedure Name Priority Date/Time Associated Diagnosis Comments COMPREHENSIVE HEARING TEST Routine 06/23/2022 2:55 PM EDT documented in this encounter Results * Comprehensive hearing test (06/23/2022 2:55 PM EDT) 06/23/2022 2:55 PM EDT Narrative AUDBASE COMP - 06/23/2022 2:55 PM EDT Seen in conjunction with Mariya Avendaño APRN for evaluation of hearing loss and ear pain following Q-tip use on the left. He is known through this section for history of vertigo with previous audiologic evaluation and VNG testing in 2018. ENT felt symptoms were due to history of migraine and possibly of cervicogenic origin. He still experiences dizziness at times. Results: Cerumen impaction of both ears. Seen by Mariya oliver prior to audio. Normal hearing for both ears save for a mild SNHL on the left from 8109-9825 Hz and at 8000 Hz. Thresholds were fairly similar to 2018 (15 dB decrease at 8000 Hz). Recorded MEEI list. Rec: Follow up per ENT. Procedure Note Unknown - 06/23/2022 Seen in conjunction with Mariya Avendaño APRN for evaluation of hearing lossand ear pain following Q-tip use on the left. He is known through this section for history ofvertigo with previous audiologic evaluation and VNG testing in 2018. ENT felt symptoms were dueto history of migraine and possibly of cervicogenic origin. He still experiencesdizziness at times. Results: Cerumen impaction of both ears. Seen by Mariya oliver prior . Normal hearing for both ears save for a mild SNHL on the left from 3662-4707 Hz and wp5375 Hz. Thresholds were fairly similar to 2018 (15 dB decrease at 8000 Hz). Recorded MEEIlist. Rec: Follow up per ENT. Mariela Hernandez [facility] AUDBASE COMP documented in this encounter Visit Diagnoses Diagnosis Left ear pain Otalgia, unspecified Dizziness Dizziness and giddiness Sensorineural hearing loss (SNHL) of left ear with unrestricted hearing of right ear documented in this encounter Care Teams Sales Person Relationship Specialty Start Date End Date Radha Mckeon MD [address] [place] [address] PCP - General 09/23/10 documented as of this encounter
--- OUTSIDE RECORDS SUMMARY | 2024-07-24 17:22 | XMS_ITS | Encounter Summary ---
Author Organization [facility] [place] [address] Care Team Providers Care Hosiery Mater Name Role Phone Radha Mckeon MD Primary Care Provider [phone] Reason for Visit * Auth/Cert Specialty Diagnoses [...] Expiration Date Visits Re quested Visits Authorized [id number] 1 1 Encounter Details Date Type Department Care Team (Latest Contact Info) Description 05/19/2022 1:45 PM EDT - 05/19/2022 11:59 PM EDT Hospital Encounter XRay at [address] [place] [address] Numbness and tingling in left arm Discharge Disposition: Home Social History Tobacco Use [...] in a [facility] (including now)? No 04/01/2022 Sex and Gender [...] QD 04/23/2020 fluticasone propionate (FLONASE) 50 mcg/actuation [place], Suspension INSTILL 1SPRAY IN EACH NOSTRIL TWICE [...] tablet Take 10 mg by mouth nightly. dexAMETHasone (Decadron) 4 mg Tablet Take 10 tablets by mouth daily for 4 days. 40 tablet 05/15/2022 05/20/2022 metoprolol succinate XL (Toprol-XL) 100 mg Tablet Sustained Release 24 hrIndications:Paroxy smal atrial fibrillation TAKE 1 AND 1/2 TABLETS BY MOUTH DAILY 135 tablet 1 01/26/2022 01/25/2023 oxyCODONE (ROXICODONE) 15 mg Tablet 15 mg as needed. 05/20/2022 acetaminophen (Tylenol) 500 mg Tablet Take 2 tablets by mouth every 8 hours. Take as directed around the clock for ten days after your surgery. After that you can take Tylenol as needed per package insert. 05/15/2021 05/20/2022 pregabalin (LYRICA) 100 mg Capsule Take 1 capsule by mouth 2 times daily. 02/11/2021 11/29/2023 Xarelto 20 mg Tablet TK 1 T PO QD 03/26/2020 022 omeprazole (PRILOSEC) 20 mg Capsule, Delayed Release(E.C.) Take 20 mg by mouth 2 times daily. 10/07/2017 08/03/2023 fish oil-omega-3 fatty acids with vitamin E 1,000 mg Capsule Take 2,000 mg by mouth daily. 05/20/2022 documented as of this encounter Plan of Treatment Upcoming Encounters Date Type Department Care Team (Late st Contact Info) Description 08/18/2024 11:00 AM EDT Hospital Encounter [place] [address] Arrived 02/22/2025 1:30 PM EDT Appointment Hematology and Oncology at [place] [phone] 02/22/2025 2:30 PM EDT Office Visit [place] [address] Ellis Childers MD [facility] [address] HEMATOLOGY [place] [address] Felicita Landa APRN [facility] [address] HEMATOLOGY [place] [address] documented as of this encounter Procedures Procedure Name Priority Date/Time Associated Diagnosis Comments XR CERVICAL SPINE 2 OR 3 VIEWS Routine 05/19/2022 2:25 PM EDT Numbness and tingling in left arm documented in this encounter Results * XR [...] have questions please contact the health care consultant that requested your imaging first. ? Electronically signed by: Lisa Aguilar MD, [facility] ([phone]), at 05/19/2022 3:17 PM Narrative 05/19/2022 3:17 PM EDT EXAMINATION: XR [...] who have questions please contactthe health care consultant that requested your imaging first. Rey Clayton MD IMG DX ORDERABLES documented in this encounter Visit Diagnoses Diagnosis Numbness and tingling in left arm Disturbance of skin sensation documented in this encounter Care Teams Hosiery Mater Relationship Specialty Start Date End Date Radha Mckeon MD [address] [place] [address] PCP - General 09/23/10 documented as of this encounter
--- OUTSIDE RECORDS SUMMARY | 2024-07-24 17:22 | XMS_ITS | Encounter Summary ---
Author Organization [facility] [place] [address] Care Team Providers Care Manager Aviation Name Role Phone Radha Mckeon MD Primary Care Provider [phone] Encounter Details Date Type Department Care Team (Late st Contact Info) Description 05/26/2022 Telephone [facility] [place] [address] Kareem Mckeon, SALVAGE INSPECTOR Social History Tobacco Use Types Packs/Day Years [...] Encounter - Kareem Mckeon MSW - 05/26/2022 4:28 PM EDTSummary: Insurance informaton and attempted phone call OFFICE of CARE MANAGEMENT CCM Irrigation Engineer contacted [employer] and received updated information. Irrigation Engineer attempted to contact Mr. Machado by phone at ; however, he was unavailable. Irrigation Engineer left a voicemail message with her contact number asking for a return a call. There are no other concerns to address at this time. SOY Kemp documented in this encounter Plan of Treatment Upcoming Encounters Date Type Department Care Team (Late st Contact Info) Description 08/18/2024 11:00 AM EDT Hospital Encounter [place] [address] Arrived 02/22/2025 1:30 PM EDT Appointment Hematology [place] [address] 02/22/2025 2:30 PM EDT Office Visit Hematology [place] [address] Ellis Childers MD [facility] DR HEMATOLOGY [place] [address] Felicita aLnda APRN [facility] HEMATOLOGY [place] [address] documented as of this encounter Visit Diagnoses Not on filedocumented in this encounter Care Teams Manager Aviation Relationship Specialty Start Date End Date Radha Mckeon MD [address] [place] [address] PCP - General 09/23/10 documented as of this encounter
--- OUTSIDE RECORDS SUMMARY | 2024-07-24 17:22 | XMS_ITS | Encounter Summary ---
Author Organization [facility] [place] [address] Care Team Providers Care Sulfuric Acid Plant Operator Name Role Phone Radha Mckeon MD Primary Care Provider [phone] Reason for Visit * Auth/Cert Specialty Diagnoses [...] Expiration Date Visits Re quested Visits Authorized [id number] 1 1 Encounter Details Date Type Department Care Team (Late st Contact Info) Description 05/19/2022 7:30 AM EDT - 05/19/2022 10:45 AM EDT Surgery [place] [address] Rey Mack MD [facility] [place] [address] ARTHRODESIS, ANT INTERBODY,DECOMPRESSIO N; CERVICAL BELOW C2 (WRVU 25) Social History Tobacco Use Types Packs/Day Years [...] Sign Reading Time Taken Comments Blood Pressure 164/85 05/19/2022 6:51 AM EDT Pulse 62 05/19/2022 6:51 AM EDT Temperature 36.6 ??C (97.9 ??F) 05/19/2022 6:51 AM ED T Respiratory Rate 16 05/19/2022 6:51 AM EDT Oxygen Saturation 98% 05/19/2022 6:51 AM EDT Inhaled Oxygen Concentration - - Weight - - Height - - Body Mass Index - - documented in this encounter Discharge Summaries * Renata Cordoba, NUTRITION SPECIALIST - 05/20/2022 12:05 PM EDT Discharge Summary Patient Name: Malik Machado Patient Age: 72 y.o. Language: Solomon Islander Race: White Ethnicity: Not nor Admit date: 05/19/2022 Discharge date and time: 05/20/2022 Attending Physician: Rey Mack MD Discharge Physician: Rey Mack MD Follow-up Recommendations for Providers: 1. Will restart Xarelto on POD#5 or 05/24/22. See discharge instructions for additional details. Future Appointments Date Time Provider Department Center 07/02/2022 1:30 PM Diogo Robb PA [facility] CARD 4A [facility] 08/19/2022 1:30 PM LABORATORY, TECH [facility] INF 3K [facility] 08/19/2022 2:30 PM Ellis Guy MD [facility] HEM ONC [facility] Inpatient Provider Contact Information: Rey Mack MD Spine Center: [phone] After hours and weekends, call [facility] Compensation Advisor, , and have the Orthopedic resident paged. [...] kayla release for trigger finger 05/15/21 (Dr Qudsi) ??? Radiculopathy of cervical region ??? Neck [...] The patient was instructed to wear a [place] J at all times. These parameters were [...] patients who have questionsplease contact the health wound care rn that requested your imaging first. Cervical Spine [...] who have questions please contact the health wound care rn that requested your imaging first. Cervical Spine [...] who have questions please contact the health wound care rn that requested your imaging first. Pending Studies and Lab Data at Discharge: * No orders in the log * Transfusions: No Discharge Conditions/Prognosis: Stable, awake, and alert. Mobilizing as noted above, pain controlled on oral medications. Discharge to: [facility] [address] [address] Updated Allergies/ADRs: Allergies Allergen Reactions ??? Zolpidem [...] Flecainide Other (See Comments) Adverse effect caused WA and QRS prolongation Other reaction(s): Other (See Comments) Adverse effect caused WA and QRS prolongation Other reaction(s): Other (See [...] them. 3. You should also take an obgb-oyl-auzfqet stool softener or laxative, such as Emily-colace [...] please contact the Spine Center Prescription Lineat [phone]. PRESCRIPTION RENEWAL REQUESTS CAN TAKE UP TO 3 DAYS TO FILL. Be sure to allow for this when requesting a new prescription. The new prescription will be sent electronically to your preferred pharmacy. 5. On 05/24/22, you may restart your usual rivaroxaban (Xarelto). Barneveld J Collar Instructions: 1. You are being [...] days after surgery, please call the [facility] at the number below. 3. After the [...] has completely healed. PLEASE CALL US AT [phone] TO SPEAK WITH A SPINE CENTER NURSE [...] Numbers: Clinical issues, nurse questions, medication renewals: [phone] Mack: [phone] Evenings after 5pm and weekends you may contact the Orthopaedic resident ada accommodation consultant: [phone], askthe machine operators to page the Orthopaedic resident Follow Up Appointments: 1. You will have follow-up appointments at [facility] as indicated in the ???Future Appointments and [...] on the next business day. Please call [phone] if you do not hear from us by that time, as your timely follow-up is very important to us. Future Appointments Date Time Provider Department Center 08/19/2022 1:30 PM LABORATORY, TECH [facility] INF 3K [facility] 08/19/2022 2:30 PM Ellis Guy MD [facility] HEM ONC [facility] General Instructions None Future Appointments and Orders Future Appointments and Orders Future Appointments Provider Department Dept Phone 07/02/2022 1:30 PM Diogo Robb PA Cardiology at [facility] Arrive at: Sales And Support Center Agent Area [phone] 08/19/2022 1:30 PM LABORATORY, TECH Hematology and Oncology at [facility] Arrive at: Sales And Support Center Agent Area [phone] 08/19/2022 2:30 PM Ellis Guy MD Hematology and Oncology at [facility] Arrive at: Sales And Support Center Agent Area [phone] Future Orders Complete By Expires Referral to Home Health [REF34 Custom] As directed Process Instructions: If no progress note charted, please enter Clinical details in comments. Scheduling Instructions: Comments: Please evaluate Malik Machado for admission to Home Health. [address] [facility] [address] (home) Date of : 1950 Inpatient DOCUMENTATION FOR VNA SERVICES (INCLUDING THOSE PATIENTS WITH MEDICARE COVERAGE REQUIRING HOME VNA SERVICES AND/OR HOSPICE SERVICES) PATIENT'S LOCATION: Malik Machado [address] [facility] [address] (home) Cell: Telephone Information: Carton Making Machinist's Name: Malik In discussion with the attending physician, it is certified that this patient is under their care and that they, or a Nurse Practitioner,Clinical Nurse specialist or Physician Genetics Nurse who is working directly with them, had a face to face encounter that meets the physician face to face encounter requirements with this patient on 05/20/2022 (MD please enter DC date here) The encounter [...] for managing ADL's. HOME HEALTH CARE AGENCY: [facility]. [address] [place] [address] Start of care: Within 24 to 48 [...] MD [address] / [place] [address] All VNA agencies which cover the area of patient's residence have been reviewed, either verbally jose writing, and patient/family have chosen the home health care agency noted Questions: Disciplines Requested: Nursing Physical Therapy Occupational Therapy Home Health Aide Primary Care Provider: Radha Mckeon MD [phone] Discharge References/Attachments Direct Oral Anticoagulants: Non-Vitamin K Antagonist (Solomon Islander) Cervical Collars: General Info (Solomon Islander) documented in this encounter Discharge Instructions * Patient Instructions* Janae Antonio, NUTRITION SPECIALIST - 05/19/2022 9:17 AM EDT Activity: 1. [...] them. 3. You should also take an dbpf-ghk-avszzyx stool softener or laxative, such as Emily-colace [...] of your pain medication, please contact the [facility] Prescription Lineat [phone]. PRESCRIPTION RENEWAL REQUESTS CAN TAKE UP TO 3 DAYS TO FILL. Be sure to allow for this when requesting a new prescription. The new prescription will be sent electronically to your preferred pharmacy. 5. On 05/24/22, you may restart your usual rivaroxaban (Xarelto). Barneveld J Collar Instructions: 1. You are being [...] against the skin, please call the [facility] Nursing Line at the number below. 5. [...] has completely healed. PLEASE CALL US AT [phone] TO SPEAK WITH A SPINE CENTER NURSE [...] Numbers: Clinical issues, nurse questions, medication renewals: [phone] Mack: [phone] Evenings after 5pm and weekends you may contact the Orthopaedic resident ada accommodation consultant: [phone], askthe machine operators to page the Orthopaedic resident Follow Up Appointments: 1. You will have follow-up appointments at [facility] as indicated in the ???Future Appointments and [...] on the next business day. Please call [phone] if you do not hear from us by that time, as your timely follow-up is very important to us. Future Appointments Date Time Provider Department Center 08/19/2022 1:30 PM LABORATORY, TECH [facility] INF 3K [facility] 08/19/2022 2:30 PM Ellis Guy MD [facility] HEM ONC [facility] * Attachments The following attachments cannot be sent through Care Everywhere. * Direct Oral Anticoagulants: Non-Vitamin K Antagonist (Sol[place] Islander) * Cervical Collars: General Info (Sol[place] Islander) documented in this encounter Medications at Time [...] QD 04/23/2020 fluticasone propionate (FLONASE) 50 mcg/actuation [place], Suspension INSTILL 1SPRAY IN EACH NOSTRIL TWICE [...] Kendrick RN - 05/20/2022 2:25 PM EDT [facility] Short Stay Unit Discharge Note All relevant [...] ORTHOPAEDIC SURGERY INPATIENT PROGRESS NOTE Patient Name: Mailk Machado Age: 72 y.o. Surgery/Issue: Procedure(s): ARTHRODESIS, [...] medication ??? Irregular heart beat afib ??? 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 JOINT REPLACEMENT [id number] ??? PACEMAKER IMPLANT loop recorder ??? PRO ALLOGRAFT FOR SPINE SURGERY ONLY STRUCTURAL Bilateral 05/19/2022 ALLOGRAFT FOR SPINE SURGERY ONLY; STRUCTUAL (WRVU 1.81) performed by Rey Mack MD at [facility] MAIN OR ??? PRO ANTERIOR INSTRUMENTATION 2-3 VERTEBRAL SEGMENTS Bilateral 05/19/2022 ANT. SPINAL INSTRUMENTATION, 2-3 VERTEBRA, SEGMENTED (WRVU 11.94) performed by Rey Mack MD at [facility] MAIN OR ??? PRO ARTHRD ANT INTERDY CERVCL BELW C2 EA ADDL NTRSPC Bilateral 05/19/2022 ARTHRODESIS ANT INTERBDY CERVCL BELOW C2 EA ADDL INTRSPACE (WRVU 6.5) performed by Rey Mack MD at [facility] MAIN OR ??? PRO ARTHRODESIS, ANT INTERBODY,DECOMPRESSION; CERVICAL BELOW C2 Bilateral 05/19/2022 ARTHRODESIS, ANT INTERBODY,DECOMPRESSION; CERVICAL BELOW C2 (WRVU 25) performed by Rey Mack MD at [facility] MAIN OR ? ? PRO DIAGNOSTIC BONE MARROW BIOPSIES & ASPIRATIONS N/A 04/22/2022 ([facility]) BONE MARROW BIOPSY AND ASPIRATION; DIAGNOSTIC performed by Ellis Guy MD at [facility] OSC ??? PRO INCISE FINGER TENDON SHEATH Right 05/15/2021 TENDON SHEATH INCISION (TRIGGER FINGER) (WRVU 3.11) performed by Jovan Duong MD at [facility] MAIN OR ??? PRO REVISE KNEE JOINT REPLACE, ALL PARTS Right 11/15/2019 @TOTAL KNEE REVISION ARTHROPLASTY, COMPLETE (WRVU 27.11) performed by Sukhjinder Jauregui MD at [facility] MAIN OR ??? XR JOINT ASPIRATION - LARGE JOINT RIGHT Right 01/02/2019 XR Fluoro Guided Joint Aspiration Large Right 01/02/2019 [facility] RAD XRAY Social History: Per OT note [...] consult. LUPE DE LA CRUZ, PT Pager: [phone] Physical Therapy Inpatient Rehabilitation Department Time IN / OUT: 1539-8732 Total Minutes, Physical Therapy: 2016 PT Evaluation Code Rationale: ?? Diagnosis & [...] medication ??? Irregular heart beat afib ??? [facility]CI current use of opiate analgesic [...] CURVED Procedure Date: 01/14/2010 ??? JOINT REPLACEMENT [id number] ??? PACEMAKER IMPLANT loop recorder ??? PRO ALLOGRAFT FOR SPINE SURGERY ONLY STRUCTURAL Bilateral 05/19/2022 ALLOGRAFT FOR SPINE SURGERY ONLY; STRUCTUAL (WRVU 1.81) performed by Rey Mack MD at [facility] MAIN OR ??? PRO ANTERIOR INSTRUMENTATION 2-3 VERTEBRAL SEGMENTS Bilateral 05/19/2022 ANT. SPINAL INSTRUMENTATION, 2-3 VERTEBRA, SEGMENTED (WRVU 11.94) performed by Rey Mack MD at [facility] MAIN OR ??? PRO ARTHRD ANT INTERDY CERVCL BELW C2 EA ADDL NTRSPC Bilateral 05/19/2022 ARTHRODESIS ANT INTERBDY CERVCL BELOW C2 EA ADDL INTRSPACE (WRVU 6.5) performed by Rey Mack MD at [facility] MAIN OR ??? PRO ARTHRODESIS, ANT INTERBODY,DECOMPRESSION; CERVICAL BELOW C2 Bilateral 05/19/2022 ARTHRODESIS, ANT INTERBODY,DECOMPRESSION; CERVICAL BELOW C2 (WRVU 25) performed by Rey Mack MD at [facility] MAIN OR ? ? PRO DIAGNOSTIC BONE MARROW BIOPSIES & ASPIRATIONS N/A 04/22/2022 ([facility]) BONE MARROW BIOPSY AND ASPIRATION; DIAGNOSTIC performed by Ellis Guy MD at [facility] OSC ??? PRO INCISE FINGER TENDON SHEATH Right 05/15/2021 TENDON SHEATH INCISION (TRIGGER FINGER) (WRVU 3.11) performed by Jovan Duong MD at [facility] MAIN OR ??? PRO REVISE KNEE JOINT REPLACE, ALL PARTS Right 11/15/2019 @TOTAL KNEE REVISION ARTHROPLASTY, COMPLETE (WRVU 27.11) performed by Sukhjinder Jauregui MD at [facility] MAIN OR ??? XR JOINT ASPIRATION - LARGE JOINT RIGHT Right 01/02/2019 XR Fluoro Guided Joint Aspiration Large Right 01/02/2019 [facility] RAD XRAY Social History: Patient lives with [...] Occupational Therapy: 60 (1 moderate complexity eval (0723-9269)) OT Evaluation Code Rationale: ?? Diagnosis & [...] and measurable assessment of functional outcome. Pager: [phone] Isis Feng OT 05/20/2022 Occupational Therapy Rehabilitation [...] ??C (98.4 ??F)] Heart Rate: [62-72] Resp: [9-] BP: (160-194)/(74-107) Intake/Output Summary (Last 24 hours) [...] Department Center 08/19/2022 1:30 PM LABORATORY, TECH [facility] INF 3K [facility] 08/19/2022 2:30 PM Ellis Guy MD [facility] HEM ONC [facility] Spine Attending I have seen and examined [...] Department Center 08/19/2022 1:30 PM LABORATORY, TECH [facility] INF 3K [facility] 08/19/2022 2:30 PM Ellis Guy MD [facility] HEM ONC [facility] * Marsha Graham RN - 05/19/2022 11:43 [...] medication ??? Irregular heart beat afib ??? 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 (Only Medicare A&B): Yes ; Prescription Coverage: Yes Preferred Pharmacy: [id number] - [place], [place] - [address] [facility] [address] [address] [facility] [address] [facility] [phone] [facility] [address] [facility] [address] Status: Patient is a : Yes ([place]) Are you enrolled in the [place] for your healthcare?: No Primary Care Provider: Radha Mckeon MD [phone] Patient/Caregiver Goals of Treatment: return home when medically ready Potential Needs for Transition of Care: home health care Agency Referrals: I have met with the patient to: ?? discuss discharge planning needs. ?? provide the [facility], Office of Care Management letter from the Data Manager pertaining to rehabreferrals. ?? provide a letter describing our affiliations within the [facility] and educate about their right to choose where referrals are sent. ?? provide a list of Home Health Agencies / Durable Medical Equipment vendors which serve their preferred geographic area. ?? provided patient with [facility] Star Quality Rating handout. They have requested referrals to: [facility] [email or web address]. [address] [place] [address] Note routed to a Primer Charging Tool Setter who will communicate referrals to facilities and [...] assist with transition of care planning. Sanaz MARTINEZ RN Phone: [phone] Pager: [phone] * Brief Op Note - Rey Mack MD - 05/19/2022 11:17 AM EDT Brief Operative Note Patient Name: Malik Machado : [id number] MR#: [id number] Case Date: 05/19/2022 Surgeon: Surgeon(s) and Role: * Rey Mack MD - Primary * Anthony Mohamud MD - Resident Preoperative diagnosis: Cervical radiculopathy Postoperative diagnosis: Cervical radiculopathy Procedure: C4-C6 ACDF with anterior plate and structural allografts (84462, 66946, 52457, 65885 x 2) Anesthesia: General Findings: There was [...] Mack MD - 05/19/2022 8:14 AM EDT [facility] Operative Note Patient Name: Malik Machado : [id number] MR#: [id number] Case Date: 05/19/2022 Surgeon: Surgeon(s) and Role: * Rey Mack MD - Primary * Anthony Mohamud MD - Resident Preoperative diagnosis: Cervical radiculopathy Postoperative diagnosis: Cervical radiculopathy Procedure: 1. C4-C6 anterior cervical discectomy and fusion 2. Anterior cervical plating C4-C6 3. Structural allograft placement C4-C5 and C5-C6 Implants: Globus Morganza Anesthesia: General Operative findings: There was severe [...] along the anterior aspect of the spine. Infection Prevention Specialist holes were created using 14 mm drill [...] AM EDT Hospital Encounter Non-Invasive [place] [address] Arrived 02/22/2025 1:30 PM EDT Appointment Hematology and Oncology at [address] 02/22/2025 2:30 PM EDT Office Visit Hematology and Oncology at [place] [phone] Ellis Childers MD [facility] [address] [place]AT[place]Y [place] [address] Felicita Landa APRN [facility] [address] [place]AT[place]Y [place] [address] Scheduled Referrals Name Type Priority Associated Diagnoses [...] region Allograft For Spine Surgery Only Structural (35159) 05/19/2022 7:24 AM EDT Radiculopathy of cervical region Anterior Instrumentation 2-3 Vertebral Segments (14954) 05/19/2022 7:24 AM EDT Radiculopathy of cervical region Arthrd Ant Interdy Cervcl Belw C2 Ea Addl Ntrspc (45464) 05/19/2022 7:24 AM EDT Radiculopathy of cervical region Arthrodesis, Ant Interbody,Decompression ; Cervical Below C2 (98607) 05/19/2022 7:24 AM EDT Radiculopathy of cervical [...] 3:36 AM EDT) Neutrophil % 84.4 % [facility] Neutrophil Absolute 13.28(H) 1.70 - 6.10 x10(3)/mc L [facility] Lymph % 5.5 % [facility] Lymphocytes Abs 0.9 0.9 - 3.2 x10(3)/mc L [facility] Monocyte % 9.4 % [facility] Monocyte Abs 1.5(H) 0.3 - 0.9 x10(3)/mc L [facility] Eos % 0.0 % [facility] Eosinophils Abs 0.0 0.0 - 0.4 x10(3)/[facility]OR[facility] Basophil % 0.2 % [facility] Baso Absolute 0.0 0.0 - 0.1 x10(3)/[facility] LABORATORY Immature Gran % 0.50 % [facility] Comment: Immature granulocytes(IG's)percentage and absolute count will include metamyelocytes, myelocytes, and promyelocytes. Blood smears from CBCs yielding IG's will be scanned manually for concordance. If this scan disagrees with the automated IG or if promyelocytes are noted, a manual differential will be performed. Immature Gran Absolute 0.08(H) 0.00 - 0.04 x10(3)/[facility] LABORATORY Blood 05/20/2022 3:36 AM EDT 05/20/2022 3:40 AM EDT Narrative Resulting Agency Comment Spec In Lab Anthony Mohamud MD HEMATOLOGY ORDERABLE S [facility] [place] [address] * (ABNORMAL) Hemogram (05/20/2022 3:36 AM EDT) White Blood Cell 15.7(H) 4.0 - 9.5 x10(3)/[facility] LABORATORY Red Blood Cell 5.48 4.58 - 5.54 x10(6)/[facility]ATORY Hemoglobin 16.9(H) 13.7 - 16.5 g/dL [facility] Hematocrit 50.0(H) 40.5 - 48.5 % [facility] Mean Cell Volume 91.2 82.9 - 93.1 fL [facility] Mean Cell Hemoglobin 30.8 27.5 - 32.1 pg [facility] Mean Cell Hemoglobin Concentration 33.8 32.0 - 35.7 g/dL [facility] Platelet 107(L) 145 - 357 x10(3)/mc L [facility] RDW Standard Deviation 41.4 36.0 - 45.0 fL [facility] RDW coefficient of variation 12.3 11.4 - 13.8 % [facility] Mean Platelet Volume 11.2 7.6 - 12.9 fL [facility] NRBC% auto 0.0 % [facility] NRBC Absolute 0.000 0.000 - 0.000 x10(3)/mc L [facility] Blood 05/20/2022 3:36 AM EDT 05/20/2022 3:40 AM EDT Narrative Resulting Agency Comment Spec In Lab Anthony Mohamud MD HEMATOLOGY ORDERABLE S [facility] [place] [address] * (ABNORMAL) Basic Metabolic Panel (non-fasting) (05/20/2022 3:36 AM EDT) Glucose 109 65 - 199 mg/dL [facility] Comment:Diabetes: >=200 mg/d L plus symptoms Blood Urea Nitrogen 24(H) 10 - 20 mg/dL [facility] Creatinine 1.02 0.80 - 1.50 mg/dL [facility] Sodium 134(L) 135 - 145 mmol/L [facility] Potassium 4.3 3.5 - 5.0 mmol/L [facility] Comment: Please note: ??Patients with WBC >100,000 may have falsely elevated Potassium levels. ??For accurate Potassium quantification in these patients send serum separator tube (gold top) for subsequent determinations. ??Contact the Clinical Chemistry Laboratory if there are any questions. Chloride 99 98 - 107 mmol/L [facility] Carbon Dioxide 28 22 - 31 mmol/L [facility] Anion Gap 7 5 - 15 mmol/L [facility] Calcium 9.4 8.5 - 10.5 mg/dL [facility] Est Glomerular Filtration Rate 79 >=60 mL/min/1. 73 m?? [facility] Comment: This patient's estimated [...] In Lab Rey Mack MD CHEMISTRY ORDERABLES [facility] [place] [address] * XR Cervical Spine 2 or 3 [...] who have questions please contact the health wound care rn that requested your imaging first. ? Narrative [...] patients who have questions please contactthe health wound care rn that requested your imaging first. Rey Mack [...] who have questions please contact the health wound care rn that requested your imaging first. ? Narrative [...] patients who have questions please contactthe health wound care rn that requested your imaging first. Rey Mack [...] who have questions please contact the health wound care rn that requested your imaging first. ? Narrative [...] patients who have questions please contactthe health wound care rn that requested your imaging first. Rey Mack MD IMG DX ORDERABLES * Type and Screen Validity (05/19/2022 8:27 AM EDT) T&S only valid at [facility] LABORATORY Comment:This Type and Screen result is only valid at the [facility] Blood Venous Draw / Unknown 05/19/2022 8:27 AM EDT 05/19/2022 8:34 AM EDT Narrative Resulting Agency Comment Spec In Lab Rey Mack MD BLOOD BANK LAB ORDER DELICIA [facility] [place] [address] * ABORH Recheck Status (05/19/2022 8:27 AM EDT) ABORH Type Recheck Completed [facility] Blood Venous Draw / Unknown 05/19/2022 8:27 AM EDT 05/19/2022 8:34 AM EDT Narrative Resulting Agency Comment Spec In Lab Rey Mack MD BLOOD BANK LAB ORDER DELICIA [facility] [place] [address] * Antibody screen manual (05/19/2022 8:27 AM EDT) AB Screen Interp Negative [facility] Blood Venous Draw / Unknown 05/19/2022 8:27 AM EDT 05/19/2022 8:34 AM EDT Narrative Resulting Agency Comment Spec In Lab Rey Mack MD BLOOD BANK LAB ORDER DELICIA Performing Organization Address City/[facility]/ZIP Co de Phone Number [facility] [place] [address] * ABORh Type Manual (05/19/2022 8:27 AM EDT) Expires at [id number] on: 05/22/2022 [facility] ABORH Type O Pos [facility] Blood Venous Draw / Unknown 05/19/2022 8:27 AM EDT 05/19/2022 8:34 AM EDT Narrative Resulting Agency Comment Spec In Lab Rey Mack MD BLOOD BANK LAB ORDER DELICIA Performing Organization Address City/[facility]/ZIP Co de Phone Number [facility] [place] [address] * Prepare Platelets, Apheresis (05/19/2022 6:50 AM EDT) Dispensed? Yes [facility] Blood 05/19/2022 6:50 AM EDT 05/19/2022 6:50 AM EDT Narrative Resulting Agency Comment Spec In Lab Rey Mack MD BLOOD BANK PRODUCT O RDERABLES Performing Organization Address City/[facility]/ZIP Co de Phone Number [facility] [place] [address] * (ABNORMAL) Differential, Automated (05/19/2022 6:42 AM EDT) Neutrophil % 67.5 % [facility] Neutrophil Absolute 6.50(H) 1.70 - 6.10 x10(3)/mc L [facility] Lymph % 16.3 % [facility] Lymphocytes Abs 1.6 0.9 - 3.2 x10(3)/ L [facility] Monocyte % 15.6 % [facility] Monocyte Abs 1.5(H) 0.3 - 0.9 x10(3)/mc L [facility] Eos % 0.1 % [facility] Eosinophils Abs 0.0 0.0 - 0.4 x10(3)/ L [facility] Basophil % 0.1 % [facility] Baso Absolute 0.0 0.0 - 0.1 x10(3)/ L [facility] Immature Gran % 0.40 % [facility] Comment: Immature granulocytes(IG's)percentage and absolute count will include metamyelocytes, myelocytes, and promyelocytes. Blood smears from CBCs yielding IG's will be scanned manually for concordance. If this scan disagrees with the automated IG or if promyelocytes are noted, a manual differential will be performed. Immature Gran Absolute 0.04 0.00 - 0.04 x10(3)/mc L [facility] Blood 05/19/2022 6:42 AM EDT 05/19/2022 6:47 AM EDT Narrative Resulting Agency Comment Spec In Lab Anthony Mohamud MD HEMATOLOGY ORDERABLE S Performing Organization Address [facility]/ZIP Co de Phone Number [facility] [place] [address] * (ABNORMAL) Hemogram (05/19/2022 6:42 AM EDT) White Blood Cell 9.6(H) 4.0 - 9.5 x10(3)/mc L [facility] Red Blood Cell 5.51 4.58 - 5.54 x10(6)/mc L [facility] Hemoglobin 16.9(H) 13.7 - 16.5 g/dL [facility] Hematocrit 49.6(H) 40.5 - 48.5 % [facility] Mean Cell Volume 90.0 82.9 - 93.1 fL [facility] Mean Cell Hemoglobin 30.7 27.5 - 32.1 pg [facility] Mean Cell Hemoglobin Concentration 34.1 32.0 - 35.7 g/dL [facility] Platelet 91(L) 145 - 357 x10(3)/[facility] RDW Standard Deviation 41.6 36.0 - 45.0 [facility]ATORY RDW coefficient of variation 12.6 11.4 - 13.8 % [facility] Mean Platelet Volume 11.9 7.6 - 12.9 fL [facility] NRBC% auto 0.0 % [facility] NRBC Absolute 0.000 0.000 - 0.000 x10(3)/[facility] Blood 05/19/2022 6:42 AM EDT 05/19/2022 6:47 AM EDT Narrative Resulting Agency Comment Spec In Lab Anthony Mohamud MD HEMATOLOGY ORDERABLE S [facility] [place] [address] * SCAN DOC: LAB (05/19/2022 12:00 AM EDT) Unknown MEDIA MGR SCAN EXT O RDR/RSLT documented in this encounter Visit Diagnoses Diagnosis Radiculopathy- Primary Neuralgia, neuritis, and radiculitis, unspecified Radiculopathy of cervical region Brachial neuritis or radiculitis nos Thrombocytopenia Thrombocytopenia, unspecified Numbness and tingling in left arm Disturbance of skin sensation Cervical radiculopathy Brachial neuritis or radiculitis nos S/P cervical spinal fusion Arthrodesis status Radiculopathy of cervical region Brachial neuritis or radiculitis nos Numbness and tingling in left arm Disturbance [...] Given 05/20/2022 1:09 PM EDT 1,000 mg BUpivacaine (pf) (Marcaine) (2.5 mg/mL) 0.25% injection ONCE PRN, Starting on Wed05/19/22 at 1034, Until Wed05/20/22 at 1633, Intra-Operative (Intra-Procedure), Routine Given 05/19/2022 10:34 AM EDT 5 mLs 19- Surgical Site gelatin adsorbable (Gelfoam) sponge ONCE PRN, Starting on Wed05/19/22 at 1006, Until Wed05/20/22 at 1633, Intra-Operative (Intra-Procedure) Given 05/19/2022 10:06 AM EDT 1 each 19- Surgical Site hydrALAZINE (Apresoline) (20 mg/mL) injection 5 mg [...] (Recovery-Hospital Unit), Routine thrombin (Bovine) (Thrombinar) kit ONCE PRN, Starting on Wed05/19/22 at 1006, Until Wed05/20/22 at 1633, Intra-Operative (Intra-Procedure) Given 05/19/2022 10:06 AM EDT 20,000 Units 19- Surgical Site documented in this encounter Active and Recently [...] Routine 0641 (Given - Provid er: Jonathan Viramontes RN) melatonin tablet 3 mg 3 mg, [...] give this medication AT ONCE FOR HIS 10/10 PAIN.) polyethylene glycoL (Miralax) packet 17 g [...] on Wed05/20/22 at 0900, Until Discontinued, Routine 08 (Given - Provid er: Lyric Kendrick RN) [...] relieved, call provider., Recovery (Recovery-Hospital Unit), Routine 1219 (Given - Provider: Marsha Graham RN)2010 (Given - Provider: Malia Kellogg LPN) 26 (See Alternative - Provider: Jonathan Viramontes RN)0641 (Given - Provider: Jonathan Viramontes RN)1310 (Given - Provider: Lyric Kendrick, TORREY) oxyCODONE (Roxicodone) tablet 15 mg(Linked Group 2) 15 mg, Oral, EVERY 4 HOURS PRN, Starting on Wed05/19/22 at 1149, Until Wed05/20/22 at 1633, Pain, severe pain (7-10), For severe pain (7-10). Do not exceed 15 mg in 4 hours. If pain not relieved, call provider., Recovery (Recovery-Hospital Unit), Routine 1219 (See Alternative - Provider: Marsha Graham RN)2010 (See Alternative - Provider: Malia Kellogg LPN) 26 (Given - Provider: Jonathan Viramontes RN)0641 (See Alternative - Provider: Jonathan Viramontes RN)1310 (See Alternative - Provider: Lyric Kendrick, RN) oxyCODONE (Roxicodone) tablet 5 mg(Linked Group 2) [...] 26 (See Alternative - Provider: Jonathan Viramontes RN)0641 (See Alternative - Provider: Jonathan Viramontes RN)1310 [...] Routine documented in this encounter Care Teams Sulfuric Acid Plant Operator Relationship Specialty Start Date End Date Radha Mckeon MD [address] [place] [address] PCP - General 09/23/10 documented as of this encounter
--- OUTSIDE RECORDS SUMMARY | 2024-07-24 17:22 | XMS_ITS | Encounter Summary ---
Author Organization [place] [address] Care Team Providers Care Furniture Sales Associate Name Role Phone Radha Mckeon MD Primary Care Provider [phone] Encounter Details Date Type Department Care Team (Late st Contact Info) Description 07/02/2022 1:30 PM EDT Office Visit Cardiology at [address] [address] Diogo Robb PA [facility] [place] [address] Atrial fibrillation, unspecified type Social History Tobacco Use Types Packs/Day Years [...] in a detention (including now)? No 04/01/2022 Sex and Gender Information Value Date Recorded Sex Assigned at Not on file Gender Identity Not on file Sexual Orientation Not on file documented as of this encounter Last Filed Vital Signs Vital Sign Reading Time Taken Comments Blood Pressure 146/90 07/02/2022 1:39 PM EDT Pulse 52 07/02/2022 1:39 PM EDT Temperature - - Respiratory Rate - - Oxygen Saturation 98% 07/02/2022 1:39 PM EDT Inhaled Oxygen Concentration - - Weight 78.2 kg (172 lb 4.8 oz) 07/02/2022 1:39 P M EDT Height 180.3 cm (5' 11) 07/02/2022 1:39 PM EDT Reported Body Mass Index 24.03 07/02/2022 1:39 PM EDT documented in this encounter Progress Notes * Diogo Robb PA - 07/02/2022 1:30 PM EDT Cardiac Electrophysiology [facility] Patient ID: Malik Machado is a 72 y.o. male. HPI 72yo man with complex hx including SVT, afib s/p ablation??x2, continuing lightheadedness and intermittent sensation of tachycardia without clear correlation with arrythmia. He is currently also followed??by pain management,??neurology and hematology(for ITP). As routine ambulatory monitoring, including Zio has not been in place during severe symptomatic events,??he underwent implantation of a [employer] ILR in April 2018. Though he has continued to have episodes of sensation of lightheadedness and palpitations, the ILR has not demonstrated any sustained correlating arrythmia. 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 He is maintained on verapamil 120mg daily and metoprolol succinate 150mg daily. He is anticoagulated with dabigatran. He tells me he recently had a strong episode of lightheadedness. Unfortunately, I cannot establish telemetry with his device despite various maneuvers. I was able to enlist the assistance of Kike Santoro, the [employer] clinical rep on site and she confirmed the most likely cause of inability to connect was due to cell depletion(implanted 2017 - no recent remote). Patient Active Problem List Diagnosis ??? A-fib Overview Note: --Recurrent AF --S/P cardioversions x 3 (09/2005, 01/2006, 07/2007). --AF that has resolved spontaneously (12/2006, etc). 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 --Flecainide stopped after 4 doses due to DE/QRS prolongation, 12/2007. --Started on dofetilide 500mcg BID [...] of periodic palpitations 2015. -- Admitted to [facility] 08/27/16, with A. fib at a [...] --Amitriptyline (palpitations), Lipitor (liver enzyme abnormalities), flecainide (DE/QRS prolongation noted 12/2007). ??? History of surgery [...] on oxycodone. --Lumbar radiculopathy. Review of Systems Constitutional: Negative for chills, diaphoresis, fatigue and fever. Respiratory: Negative for chest tightness and shortness of breath. Cardiovascular: Positive for palpitations. Negative for chest pain and leg swelling. Gastrointestinal: Negative for diarrhea, nausea and vomiting. Neurological: Positive for light-headedness. Negative for syncope. Social History Tobacco Use ??? Smoking status: Former Smoker Packs/day: 2.00 Years: 16.00 Pack years: 32.00 Types: Cigarettes Quit date: 11/09/1982 Years since quittin.6 ??? Smokeless tobacco: Never Used Vaping Use ??? Vaping Use: Never used Substance Use Topics ??? Alcohol use: No ??? Drug use: Never He is currently pursuing a bachelor's degree at [employer] in music [employer] and writing. 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 His has many chronic medical issues and is O2 dependent. Current Outpatient Medications Medication Sig Note Dispense [...] QD ??? fluticasone propionate (FLONASE) 50 mcg/actuation [place], Suspension INSTILL 1SPRAY IN EACH NOSTRIL TWICE [...] tablet Take 10 mg by mouth nightly. Physical Exam Vitals and nursing note reviewed. [...] oriented to person, place, and time. ILR: Spring Inspector: MDT Implanted: 04/04/18 Unable to establish telemetry connection today - presumed cell depletion(see narrative above). Assessment and Plan 72yo man with complex arrythmia hx including afib and SVT(on monitoring but unable to elicit @ EPS), s/p afib ablation and redo afib ablation in November 2016 now with??continuing??intermittent episodes of profound lightheadedness not clearly associated with either tachycardia or bradycardia.??He ismaintained on verapamil 120mg and metoprolol 150mg daily and anticoagulated with dabigatran. He waslast seen by Dr. Gan on 12/02/2017 and later underwent an ILR implant in April 2018. Though he has continued to report intermittent symptoms, there is no correlation with sustained arrythmia. He denies recent syncope though reports a recent episode of significant lightheadedness lasting more than 30seconds. He has longstanding right bundle branch block and a left anterior hemiblock that have beenstable Unfortunately, I cannot establish a telemetry connection with his device today despite various maneuvers and [employer] clinical rep confirms this is most likely due to cell depletion. We reviewed his clinical data and discussed the findings at some length. We discussed whether or not he should undergo ILR replacement and he is in favor of this. Given hiscomplex hx and known conduction disease I also favor ILR replacement. Plan: Schedule for ILR replacement due to cell depletion(he is chronically anticoagulated with Xarelto). EP clinic follow up in six months. ?? Provider: ANDREE Shelley EP Consult attending physician: Nico Corcoran MD documented in this encounter Plan of Treatment Upcoming Encounters Date Type Department Care Team (Late st Contact Info) Description 08/18/2024 11:00 AM EDT Hospital Encounter Non-[place] [address] Arrived 02/22/2025 1:30 PM EDT Appointment Hematology [place] [address] 02/22/2025 2:30 PM EDT Office Visit Hematology [place] [address] Ellis Childers MD [facility] HEMATOLOGY [facility] [place] [address] Felicita Landa APRN [facility] [place] [address] documented as of this encounter Procedures Procedure Name Priority Date/Time Associated Diagnosis Comments HEMOGRAM Routine 07/02/2022 2:57 PM EDT Atrial fibrillation, unspecified type DIFFERENTIAL, AUTOMATED Routine 07/02/2022 2:57 PM EDT Atrial fibrillation, unspecified type HC VENIPUNCTURE Routine 07/02/2022 2:57 PM EDT Atrial fibrillation, unspecified type BASIC METABOLIC PANEL STAT 07/02/2022 2:57 PM EDT Atrial fibrillation, unspecified type EKG 12-LEAD Routine 07/02/2022 1:47 PM EDT Atrial fibrillation, unspecified type documented in this encounter Results * Differential, Automated (07/02/2022 2:57 PM EDT) Neutrophil % 69.5 % [facility] Neutrophil Absolute 4.05 1.70 - 6.10 x10(3)/[facility] LABORATORY Lymph % 15.6 % [facility] Lymphocytes Abs 0.9 0.9 - 3.2 x10(3)/[facility] LABORATORY Monocyte % 11.8 % [facility] Monocyte Abs 0.7 0.3 - 0.9 x10(3)/[facility] LABORATORY Eos % 2.2 % [facility] Eosinophils Abs 0.1 0.0 - 0.4 x10(3)/[facility]ORATORY Basophil % 0.7 % [facility] Baso Absolute 0.0 0.0 - 0.1 x10(3)/[facility] LABORATORY Immature Gran % 0.20 % [facility] Comment: Immature granulocytes(IG's)percentage and absolute count will include metamyelocytes, myelocytes, and promyelocytes. Blood smears from CBCs yielding IG's will be scanned manually for concordance. If this scan disagrees with the automated IG or if promyelocytes are noted, a manual differential will be performed. Immature Gran Absolute 0.01 0.00 - 0.04 x10(3)/mcL [facility] Blood 07/02/2022 2:57 PM EDT 07/02/2022 3:02 PM EDT Narrative Resulting Agency Comment Spec In Lab Diogo CANDELARIO HEMATOLOGY ORDERABLE S [facility] [place] [address] * (ABNORMAL) Hemogram (07/02/2022 2:57 PM EDT) White Blood Cell 5.8 4.0 - 9.5 x10(3)/mc L [facility] Red Blood Cell 4.70 4.58 - 5.54 x10(6)/mc L [facility] Hemoglobin 14.9 13.7 - 16.5 g/dL [facility] Hematocrit 43.8 40.5 - 48.5 % [facility] Mean Cell Volume 93.2(H) 82.9 - 93.1 fL [facility] Mean Cell Hemoglobin 31.7 27.5 - 32.1 pg [facility] Mean Cell Hemoglobin Concentration 34.0 32.0 - 35.7 g/dL [facility] Platelet 105(L) 145 - 357 x10(3)/mc L [facility] RDW Standard Deviation 44.6 36.0 - 45.0 [facility] LABORATORY RDW coefficient of variation 12.9 11.4 - 13.8 % [facility] Mean Platelet Volume 11.7 7.6 - 12.9 [facility] LABORATORY NRBC% auto 0.0 % [facility] NRBC Absolute 0.000 0.000 - 0.000 x10(3)/mc L [facility] Blood 07/02/2022 2:57 PM EDT 07/02/2022 3:02 PM EDT Narrative Resulting Agency Comment Spec In Lab Diogo CANDELARIO HEMATOLOGY ORDERABLE S [facility] [place] [address] * (ABNORMAL) Basic Metabolic Panel (non-fasting) (07/02/2022 2:57 PM EDT) Glucose 104 65 - 199 mg/dL [facility] Comment:Diabetes: >=200 mg/d L plus symptoms Blood Urea Nitrogen 20 10 - 20 mg/dL [facility] Creatinine 1.21 0.80 - 1.50 mg/dL [facility] Sodium 144 135 - 145 mmol/L [facility] Potassium 4.9 3.5 - 5.0 mmol/L [facility] Comment: Please note: ??Patients with WBC >100,000 may have falsely elevated Potassium levels. ??For accurate Potassium quantification in these patients send serum separator tube (gold top) for subsequent determinations. ??Contact the Clinical Chemistry Laboratory if there are any questions. Chloride 109(H) 98 - 107 mmol/L [facility] Carbon Dioxide 29 22 - 31 mmol/L [facility] Anion Gap 6 5 - 15 mmol/L [facility] Calcium 9.4 8.5 - 10.5 mg/dL [facility] Est Glomerular Filtration Rate 64 >=60 mL/min/1. 73 m?? [facility] Comment: This patient's estimated [...] and symptoms in addition to eGFR. Blood 07/02/2022 2:57 PM EDT 07/02/2022 3:02 PM EDT Narrative Resulting Agency Comment Spec In Lab Salomón Gan MD CHEMISTRY ORDERABLES Performing Organization Address City/[facility] Co de Phone Number [facility] [place] [address] * EKG 12 Lead (07/02/2022 1:47 PM EDT) Ventricular rate 53 BPM MUSE SYSTEM Atrial Rate 53 BPM MUSE SYSTEM P-R Interval 166 ms MUSE SYSTEM QRS Duration 142 ms MUSE SYSTEM Q-T Interval 442 ms MUSE SYSTEM QTC Calculated (Bezet) 414 ms MUSE SYSTEM Calculated P [place] 72 degrees MUSE SYSTEM Calculated R [place] -60 degrees MUSE SYSTEM Calculated T [place] 10 degrees MUSE SYSTEM INTERPRETATION Sinus bradycardia Right bundle branch block Left anterior fascicular block Bifascicular block Abnormal ECG When compared with ECG of 25-JUN-2021 16:26, No significant change was found Confirmed by MD Naveen, Arden ([id number]) on 07/02/2022 3:02:18 PM MUSE SYSTEM 07/02/2022 1:47 PM EDT 07/02/2022 3:02 PM EDT Salomón Gan MD ECG ORDERABLES Performing Organization Address City/[facility]/ZIP Co de Phone Number MUSE SYSTEM documented in this encounter Visit Diagnoses Diagnosis Atrial fibrillation, unspecified type documented in this encounter Care Teams Furniture Sales Associate Relationship Specialty Start Date End Date Radha Mckeon MD [address] [place] [address] PCP - General 09/23/10 documented as of this encounter
--- OUTSIDE RECORDS SUMMARY | 2024-07-24 17:22 | XMS_ITS | Encounter Summary ---
Author Organization [facility] [place] [address] Care Team Providers Care Cuprous Chloride Operator Name Role Phone Radha Mckeon MD Primary Care Provider [phone] Reason for Visit * Reason Comments Follow Up Surgery Encounter Details Date Type Department Care Team (Late st Contact Info) Description 06/18/2022 11:20 AM EDT Office Visit [facility] [place] [address] Rey Clayton MD [facility] [place] [address] Radiculopathy, unspecified spinal region Social History Tobacco [...] Sign Reading Time Taken Comments Blood Pressure 99/70 06/18/2022 11:41 AM EDT Pulse 63 06/18/2022 11:41 AM EDT Temperature - - Respiratory Rate - - Oxygen Saturation - - Inhaled Oxygen Concentration - - Weight 75.3 kg (166 lb) 06/18/2022 11:41 AM EDT Height 182.9 cm (6') 06/18/2022 11:41 AM EDT Body Mass Index 22.51 06/18/2022 11:41 AM EDT documented in this encounter Patient Instructions * Patient Instructions* Rey Clayton MD - 06/18/2022 11:20 AM EDT Follow-up with Fermin Oliveira with x-rays prior. documented in this encounter Progress Notes * Rey Clayton MD - 06/18/2022 11:20 AM EDT Date of surgery: 05/19/2022 Surgery: C4-C6 ACDF for left upper extremity pain Interval history: Mr. Machado returns today about 1 month out from surgery. He is doing well. He reports only mild neck pain and no upper extremity pain. He is taking Tylenol as needed. His swallowing is almost back to normal. He denies any fevers, chills, or drainage from the incision. 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 Overall, he is pleased with how he is doing. Physical exam General: Patient is comfortable, no acute distress Neck: He has well-healed anterior incision. There is no drainage or erythema. Neurological exam: He has 5/5 strength of all upper extremity motors. He has normal sensory exam. Imaging: Lateral x-ray of the cervical spine obtained today was reviewed. This demonstrates no change in alignment of the spine, grafts, or hardware. There is nothing suggest hardware failure or loosening. Assessment/plan: Mr. Machado is 1 month out from his ACDF, and his radicular pain is resolved. I encouraged him to gradually advance his activities as tolerated and wean out of the collar. He will contact us for a note when he wants to return to work. He will follow-up with my PA in 2 months with repeat x- rays at that time documented in this encounter Plan of Treatment Upcoming Encounters Date Type Department Care Team (Late st Contact Info) Description 08/18/2024 11:00 AM EDT Hospital Encounter Non[place] [address] Arrived 02/22/2025 1:30 PM EDT Appointment Hematology [place] [address] 02/22/2025 2:30 PM EDT Office Visit Hematology [place] [address] Ellis Childers MD [facility] HEMATOLOGY [place] [address] Felicita Landa APRN [facility] HEMATOLOGY [place] [address] documented as of this encounter Visit Diagnoses Diagnosis Radiculopathy, unspecified spinal region documented in this encounter Care Teams Cuprous Chloride Operator Relationship Specialty Start Date End Date Radha Mckeon MD [address] [place] [address] PCP - General 09/23/10 documented as of this encounter
--- OUTSIDE RECORDS SUMMARY | 2024-07-24 17:22 | XMS_ITS | Encounter Summary ---
Author Organization [facility] [place] [address] Care Team Providers Care Investment Director Name Role Phone Radha Mckeon MD Primary Care Provider [phone] Encounter Details Date Type Department Care Team (Late st Contact Info) Description 08/04/2022 Orders Only Cardiology at [address] [id number] Diogo Robb PA [facility] [place] [address] Encounter for loop recorder at end of [...] AM EDT Hospital Encounter Non-Invasive Cardiology Lab [address] Arrived 02/22/2025 1:30 PM EDT Appointment Hematology and Oncology at [place] [address] 02/22/2025 2:30 PM EDT Office Visit Hematology and Oncology at [place] [address] Ellis Childers MD [facility] [address] [place] [address] Felicita Landa APRN [facility] [address] [place] [address] documented as of this encounter Visit Diagnoses Diagnosis Encounter for loop recorder at end of battery life documented in this encounter Care Teams Investment Director Relationship Specialty Start Date End Date Radha Mckeon MD [address] [place] [address] PCP - General 09/23/10 documented as of this encounter
--- OUTSIDE RECORDS SUMMARY | 2024-07-24 17:22 | XMS_ITS | Encounter Summary ---
Author Organization Count Includes [facility] [address] Care Team Providers Care Staple Shear Operator Name Role Phone Radha Mckeon MD Primary Care Provider [phone] Encounter Details Date Type Department Care Team (Late st Contact Info) Description 07/13/2022 Telephone [place] [address] Maricarmen Mcgee, RN Social History Tobacco Use [...] encounter Miscellaneous Notes * Telephone Encounter - Maricarmen Mcgee RN - 07/13/2022 5:24 PM EDT Call placed to Mr Machado in FU to incoming message indicating pt is interested in a RTW note so hechenrietta go back to work sometime this work. Pt is s/p C4-C6 ACDF with Dr Clayton on 05/19/22 for left upper extremity pain. Pt was last seen in clinic 06/18/22 at which time he was noted to be well; secondary FU with Fermin Oliveira planned for 08/26/22. Discussed with pt his job demands and schedules. Work note prepared form planned RTW Wednesday07/18/22. Letter as prepared mailed to pt's home. Letter to be faxed to workplace following call with Fax #. Discussed future PT with pt; pt will be interested in attending PT at [facility] in [facility] following his secondary HCL with Fermin- Given delay in access will discuss early referral w Dr Clayton and/or Fermin chirinos a notation on the referral to defer initial PT eval until p 08/26 clinic eval and XR. Pt will call with therapists fax # so we can prepare referral and fax referral and corresponding documents to external PT. 07/16/22 ~ 8:15am FU call to pt; left detailed VM message advising that I had mailed him his rtw note; but had still not faxed the note to his workplace authorizing him clearance to work Wednesday07/18/22, as I do not have fax #. Requested pt call spine triage office w fax # and to advise if he wantsand external MA referral (to start post next visit); and if so- to where. Awaiting returning call. Pt returned call as requested. Pt advised that he had emailed his employer the RTW letter that he had received via his edh protal so the latter did not need to be faxed. Pt reports weir scheduled a future PT eval at [facility]; the initial eval is August 12 to allow for his secondary surgical eval which is pending for 08/26/22 with Fermin with XR prior. Pt scheduled the appt in advance of the apt; as he is aware they are booking out. Pt does has a moderatly physically demanding job and continues to have some neck, intrascapular pain which I reassured hm should slowly get better with time, gradual increased use of the musculature and ligaments thathave been rested fr a period of time w collar use. Pt understands he can/should call if sxs get worse vs better. Pt also understands to report any remaining sxs at his next appt w XR. External PT order pended to Dr Rey Clayton in a seperate orders only encounter. Upon signature will fax to [facility] with corresponding notes; advising that future appt note will also be forthcoming prior to Aug 12 initial PT eval. 07/20/22 Order and corresponding notes faxed to external PT Business. Received receipt of fax. documented in this encounter Plan of Treatment Upcoming Encounters Date Type Department Care Team (Late st Contact Info) Description 08/18/2024 11:00 AM EDT Hospital Encounter Non-Invasive [place]iology [place] [address] Arrived 02/22/2025 1:30 PM EDT Appointment H[place]ology [place] [address] 02/22/2025 2:30 PM EDT Office Visit Hematology [place] [address] Ellis Childers MD [facility] DR HEMATOLOGY [place] [address] Felicita Landa APRN [facility] HEMATOLOGY [place] [address] documented as of this encounter Visit Diagnoses Not on filedocumented in this encounter Care Teams Staple Shear Operator Relationship Specialty Start Date End Date Radha Mckeon MD [address] [place] [address] PCP - General 09/23/10 documented as of this encounter
--- OUTSIDE RECORDS SUMMARY | 2024-07-24 17:22 | XMS_ITS | Encounter Summary ---
Author Organization [facility] [place] [address] Care Team Providers Care Category Planner Name Role Phone Radha Mckeon MD Primary Care Provider [phone] Encounter Details Date Type Department Care Team (Late st Contact Info) Description 06/23/2022 4:30 PM EDT Office [place] [address] Mariya Avendaño APRN [facility] [place] [address] Bilateral impacted cerumen Social History Tobacco Use Types Packs/Day Years [...] as of this encounter Progress Notes * Mariya Avendaño, ISSAC - 06/23/2022 4:30 PM EDT Otolaryngology Same Day Note Date of Visit: 06/23/2022 Location of Visit: Otolaryngology Clinic, [facility] Chief Complaint: Malik is a 72 year old with a hx of putting a Q-tip deep in his ear and has noticeda decrease in hearing. Interval History: Malik is a 72 year old with the above history. He was trying to clean his ears recently and used a Q-tip in the left ear. He had pain and now can't hear well. He has no baseline hearing test done Past Medical History: Other then above, see list Medications: see list Allergies: see list Physical Examination: General: Age-appropriate interactive behavior in no acute distress. Face: Symmetric without dysmorphic features. Ears: Auricles symmetric bilaterally without lesions noted. External auditory canals are occluded with cerumen. This was removed with the use of vacuum and microscope. . On the left, tympanic membrane is clear. Middle ear is well aerated. On the right tympanic membrane is clear. Middle ear is well aerated. Nose: Patent anteriorly; mucosa without lesions. Septum without significant deviation. Audio: Audio obtained after cerumen was removed. Mild SNHL L > R. Word recognition is 100% at 85dB bilateral. Impression: 1) bilateral Cerumen impaction with known SNHL Plan: Use Debrox prn for cerumen. Asked not to use Q-tips. Monitor for any new issues. RTC as needed. Mariya WORTHINGTON [facility] Otolaryngology-Head and Neck Surgery [place], [place] [address] documented in this encounter Plan of Treatment Upcoming Encounters Date Type Department Care Team (Late st Contact Info) Description 08/18/2024 11:00 AM EDT Hospital Encounter Non-[place]vasive [place] [address] Arrived 02/22/2025 1:30 PM EDT Appointment [place] [address] 02/22/2025 2:30 PM EDT Office Visit [place] [address] Ellis Childers MD [facility] DR HEMATOLOGY [place] [address] Felicita Landa APRN [facility] DR HEMATOLOGY [place] [address] documented as of this encounter Visit Diagnoses Diagnosis Bilateral impacted cerumen Impacted cerumen documented in this encounter Care Teams Category Planner Relationship Specialty Start Date End Date Radha Mckeon MD [address] [place] [address] PCP - General 09/23/10 documented as of this encounter
--- OUTSIDE RECORDS SUMMARY | 2024-07-24 17:22 | XMS_ITS | Encounter Summary ---
Author Organization Replaced By [facility] [place] [address] Care Team Providers Care Animal Attendants And Trainers Name Role Phone Radha Mckeon MD Primary Care Provider [phone] Encounter Details Date Type Department Care Team (Latest Contact Info) Description 06/18/2022 10:39 AM EDT - 06/18/2022 11:59 PM EDT Hospital Encounter XRay at [address] [place] [address] Rey Clayton MD [facility] [place] [address] Radiculopathy of cervical region Discharge Disposition: Home Social History Tobacco [...] QD 04/23/2020 fluticasone propionate (FLONASE) 50 mcg/actuation [place], Suspension INSTILL 1SPRAY IN EACH NOSTRIL TWICE [...] AM EDT Hospital Encounter Non-Invasive [place] [address] Arrived 02/22/2025 1:30 PM EDT Appointment Hematology [place] [address] 02/22/2025 2:30 PM EDT Office Visit Hematology [place] [address] Ellis Childers MD [facility] [place] [address] Felicita Landa APRN [facility] [place] [address] documented as of this encounter Procedures Procedure Name Priority Date/Time Associated Diagnosis Comments XR CERVICAL SPINE 1 VIEW Routine 06/18/2022 10:44 AM EDT Radiculopathy of cervical region documented in this encounter Results * XR Cervical Spine 1 View (06/18/2022 10:44 AM EDT) Anatomical Region Laterality Modality C-spine N/A Digital Radiogra phy Impressions 06/18/2022 12:28 PM EDT 1. ??Recent ACDF across C4-C6 without hardware complications or change in alignment. 2. ??No subluxation 3. ??C6-C7 and C7-T1 disc space narrowing are redemonstrated. Thank you for letting us participate in the care of this patient. ??If you are a health care provider and have any questions regarding this report, please contact the number below. ??For patients who have questions please contact the health home health care coordinator that requested your imaging first. ? Electronically signed by: Sierra Isidro MD, [facility] ([phone]), at 06/18/2022 12:28 PM Narrative 06/18/2022 12:28 PM EDT EXAMINATION: XR CERVICAL SPINE 1 VIEW CLINICAL HISTORY: Upright Lateral (singled view) for history of neck pain, now S/P surgery, , entered by ordering service TECHNIQUE: 1 views , lateral view cervical spine COMPARISON: Radiographs, May 19, 2022 FINDINGS: T2 is obscured by overlapping structures ACDF across C4-C6 with anterior plate, screws and interbody graft material. Unchanged hardware alignment and no complications. Vertebral bodies: No vertebral body height loss. Diffuse vertebral body and facet osteophytes are redemonstrated. Disk spaces: C6-7 and W6-F9-lthwibaz disc space is redemonstrated Soft tissues: The early postsurgical overlapping catheters are removed. Alignment: No subluxation Procedure Note Sierra Isidro MD - 06/18/2022 EXAMINATION: XR CERVICAL SPINE 1 VIEW CLINICAL HISTORY: Upright Lateral (singled view) for history of neck pain,now S/P surgery, , entered by ordering service TECHNIQUE: 1 views , lateral view cervical spine COMPARISON: Radiographs, May 19, 2022 FINDINGS: T2 is obscured by overlapping structures ACDF across C4-C6 with anterior plate, screws and interbody graftmaterial. Unchanged hardware alignment and no complications. Vertebral bodies: No vertebral body height loss. Diffuse vertebral bodyand facet osteophytes are redemonstrated. Disk spaces: C6-7 and E4-C3-bhzorzjb disc space is redemonstrated Soft tissues: The early postsurgical overlapping catheters are removed. Alignment: No subluxation IMPRESSION 1. Recent ACDF across C4-C6 without hardware complications or change in alignment. 2. No subluxation 3. C6-C7 and C7-T1 disc space narrowing are redemonstrated. Thank you for letting us participate in the care of this patient. If youare a health care provider and have any questions regarding this report,please contact the number below. For patients who have questions please contactthe health home health care coordinator that requested your imaging first. Electronically signed by: Sierra Isidro MD, [facility]([phone]), at 06/18/2022 12:28 PM Rey Clayton MD IMG DX ORDERABLES documented in this encounter Visit Diagnoses Diagnosis Radiculopathy of cervical region Brachial neuritis or radiculitis nos documented in this encounter Care Teams Animal Attendants And Trainers Relationship Specialty Start Date End Date Radha Mckeon MD [address] [place] [address] PCP - General 09/23/10 documented as of this encounter
--- OUTSIDE RECORDS SUMMARY | 2024-07-24 17:22 | XMS_ITS | Encounter Summary ---
Author Organization [facility] [place] [address] Care Team Providers Care Executive Communications Manager Name Role Phone Radha Mckeon MD Primary Care Provider [phone] Encounter Details Date Type Department Care Team (Late st Contact Info) Description 08/09/2022 Telephone Cardiology at [address] [phone] Ty Leigh MD [facility] [place] [address] Social History Tobacco Use Types Packs/Day Years [...] encounter Miscellaneous Notes * Telephone Encounter - Ty Leigh MD - 08/09/2022 10:24 AM EDT Call from patient 08/08/22; He is scheduled for ILR removal and new ILR placement 08/10/22. He calls re: questions regarding procedure and whether he can drive home after the case. He also tells me that his present loop recorder is readily palpable in his chest just underneath his skin. Informed him that if only local anesthetic is used, then he would be able to drive himself home. Ifhe requires conscious sedation then he would need a ride home. I stated returning to work later this week would be OK. I gave him general reminders regarding care of incision site including holding off on bathing / swimming for ~ 2 weeks, avoid putting water directly on the wound. He expresses understanding and believes he will be able to do this with local numbing agent only (did not require conscious sedation at time of initial implant). Ty Leigh MD Cardiac Electrophysiology Fellow [facility] Pager [phone] 08/09/2022 documented in this encounter Plan of Treatment Upcoming Encounters Date Type Department Care Team (Late st Contact Info) Description 08/18/2024 11:00 AM EDT Hospital Encounter Non-Invasive [place] [address] Arrived 02/22/2025 1:30 PM EDT Appointment Hematology [place] [address] 02/22/2025 2:30 PM EDT Office Visit Hematology and Oncology at [place] [phone] Ellis Childers MD [facility] DR HEMATOLOGY [place] [address] Felicita Landa APRN [facility] DR HEMATOLOGY [place] [address] documented as of this encounter Visit Diagnoses Not on filedocumented in this encounter Care Teams Executive Communications Manager Relationship Specialty Start Date End Date Radha Mckeon MD [address] [place] [address] PCP - General 09/23/10 documented as of this encounter
--- OUTSIDE RECORDS SUMMARY | 2024-07-24 17:22 | XMS_ITS | Encounter Summary ---
Author Organization [facility] [place] [address] Care Team Providers Care Photographic Engineer Name Role Phone Radha Mckeon MD Primary Care Provider [phone] Reason for Referral * Physical Therapy (Routine) - Closed Specialty Diagnoses / Procedures Referred By Becki guillory Referred To Contact Physical Therapy Diagnoses Cervical radiculopathy Radiculopathy of cervical region Cervical pain (neck) Post-operative state printed and mailed to patient Rey Bird MD [facility] [place] [place] [address] Referral ID Status Reason Start Date Expiration Date V isits Requested Visits Authorized [id number] Closed Evaluate and Treat 07/16/2022 01/12/2023 12 12 Encounter Details Date Type Department Care Team (Late st Contact Info) Description 07/16/2022 Orders Only [place] [address] Maricarmen Mcgee, RN Cervical radiculopathy; Radiculopathy of cervical region; Cervical pain (neck); Post-operative state Social History Tobacco Use Types Packs/Day Years [...] money to buy more. Never true 04/01/20 Ran Out of Food in the Last [...] Progress Notes * Maricarmen Mcgee RN - 07/16/2022 12:15 PM EDT External PT order pended to Dr Bird for signature. Pt is s/p C4-C6 ACDF with Dr Bird on 05/19/22. Pt has had initial HCK at which time Dr bird suggested he could RTW when ready but suggested he defer formal PT unti after his next appt. Pt has pending secondary surgical FU with Fermin Oliveira on 08/26/22 w XR prior. Pt has scheduled a local initial PT [facility]. allowing adequate time for the secondary visit and that visit note getting to the therapist. 07/20/22 Order and corresponding notes faxed to external PT Business. Received receipt of fax. documented in this encounter Plan of Treatment Upcoming Encounters Date Type Department Care Team (Late st Contact Info) Description 08/18/2024 11:00 AM EDT Hospital Encounter Non-Invasive [place] [address] Arrived 02/22/2025 1:30 PM EDT Appointment Hematology [place] [address] 02/22/2025 2:30 PM EDT Office Visit Hematology [place] [phone] [facility] [address] [place] [address] [facility] [address] [place] [address] Scheduled Referrals Name Type Priority Associated Diagnoses Orde r Schedule Referral to Physical Therapy Outpatient Referral Routine Cervical radiculopathy Radiculopathy of cervical region Cervical pain (neck) Post-operative state Ordered: 07/16/2022 documented as of this encounter Visit Diagnoses Diagnosis Cervical radiculopathy Brachial neuritis or radiculitis nos Radiculopathy of cervical region Brachial neuritis or radiculitis nos Cervical pain (neck) Cervicalgia Post-operative state Other postprocedural status documented in this encounter Care Teams Photographic Engineer Relationship Specialty Start Date End Date Radha Mckeon MD [address] [place] [address] PCP - General 09/23/10 documented as of this encounter
--- OUTSIDE RECORDS SUMMARY | 2024-07-24 17:22 | XMS_ITS | Encounter Summary ---
Author Organization [facility] [place] [address] Care Team Providers Care Internal Audit Senior Manager Name Role Phone Radha Mckeon MD Primary Care Provider [phone] Reason for Referral * Consultation (Routine) - Closed Specialty Diagnoses / Procedures Referred By Becki guillory Referred To Contact Otolaryngology Diagnoses Epistaxis Josselyn Max MD [facility] [place] [address] [facility] Otolaryngology [address] [place] [phone] Referral ID Status Reason Start Date Expiration Date V isits Requested Visits Authorized [id number] Closed Consult, Test & Treat 08/01/2022 08/01/2023 1 1 Encounter Details Date Type Department Care Team (Late st Contact Info) Description 08/01/2022 [place] [address] Josselyn Max MD [facility] [place] [address] Social History Tobacco Use Types Packs/Day Years [...] as of this encounter Progress Notes * Josselyn Max MD - 08/01/2022 12:13 AM EDT Called by Transfer Center by Dr. Stevens at on 08/01/22 regarding Malik Machado. Malik Machado is a 72 y.o. male with PMH Afib on Xarelto, no home O2, who presented to with anterior right epistaxis. Per discussion with [...] not the patient has begun these interventions. AVSS Platelets 110. Hgb 15. Localizes to anterior right nasal septum Recommendations/Plan For the acute management of this very slow flow epistaxis, I have cauterization only if source is confidently identified. I have also recommended bilateral Afrin nasal spray followed by topical TXA to the area of concern with anterior nasal pressure for at least 15 minutes. I discussed with the this persistence in the setting and thrombocytopenia may be related with significant irritation of prophylaxis, I recommended the patient's start bilateral saline AYA gel to maintain healthy nasal mucosa. I have also suggested that the patient may benefit from a short course ofregular Afrin nasal spray (TID x 3d) to get adequate control of this this. I have also placed a refe rral for this patient to be seen by ENT in clinic for evaluation of recurrent epistaxis. Josselyn Max MD, PGY2 08/01/2022 12:14 AM Pager #[phone] documented in this encounter Plan of Treatment Upcoming Encounters Date Type Department Care Team (Late st Contact Info) Description 08/18/2024 11:00 AM EDT Hospital Encounter Non[place] [address] Arrived 02/22/2025 1:30 PM EDT Appointment Hematology [place] [address] 02/22/2025 2:30 PM EDT Office Visit Hematology [place] [address] Ellis Childers MD [facility] DR [place] [address] Felicita Landa APRN [facility] DR [place] [address] Scheduled Referrals Name Type Priority Associated Diagnoses Orde r Schedule Referral to ENT Outpatient Referral Routine Epistaxis Ordered: 08/01/2022 documented as of this encounter Visit Diagnoses Diagnosis Epistaxis documented in this encounter Care Teams Internal Audit Senior Manager Relationship Specialty Start Date End Date Radha Mckeon MD [address] [place] [address] PCP - General 09/23/10 documented as of this encounter
--- OUTSIDE RECORDS SUMMARY | 2024-07-24 17:22 | XMS_ITS | Encounter Summary ---
Author Organization [facility] [place] [address] Care Team Providers Care Financial Specialist Name Role Phone Radha Mckeon MD Primary Care Provider [phone] Encounter Details Date Type Department Care Team (Late st Contact Info) Description 06/26/2022 Orders Only Cardiology at [address] [id number] Diogo Robb PA [facility] [place] [address] Atrial fibrillation, unspecified type Social History Tobacco [...] AM EDT Hospital Encounter [place] [address] Arrived 02/22/2025 1:30 PM EDT Appointment Hematology and Oncology at [place] [address] 02/22/2025 2:30 PM EDT Office Visit Hematology and Oncology at [address] Ellis Childers MD [facility] DR HEMATOLOGY [place] [address] Felicita Landa APRN [facility] [address] HEMATOLOGY [place] [address] documented as of this encounter Results * EKG 12 Lead (07/02/2022 1:47 PM EDT) Ventricular rate 53 BPM MUSE SYSTEM Atrial Rate 53 BPM MUSE SYSTEM P-R Interval 166 ms MUSE SYSTEM QRS Duration 142 ms MUSE SYSTEM Q-T Interval 442 ms MUSE SYSTEM QTC Calculated (Bezet) 414 ms MUSE SYSTEM Calculated P Glide 72 degrees MUSE SYSTEM Calculated R Glide -60 degrees MUSE SYSTEM Calculated T Glide 10 degrees MUSE SYSTEM INTERPRETATION Sinus bradycardia Right bundle branch block Left anterior fascicular block Bifascicular block Abnormal ECG When compared with ECG of 25-JUN-2021 16:26, No significant change was found Confirmed by MD Naveen, Arden ([id number]) on 07/02/2022 3:02:18 PM MUSE SYSTEM 07/02/2022 1:47 PM EDT 07/02/2022 3:02 PM EDT Salomón Gan MD ECG ORDERABLES MUSE SYSTEM documented in this encounter Visit Diagnoses Diagnosis Atrial fibrillation, unspecified type documented in this encounter Care Teams Financial Specialist Relationship Specialty Start Date End Date Radha Mckeon MD [address] [place] [address] PCP - General 09/23/10 documented as of this encounter
--- OUTSIDE RECORDS SUMMARY | 2024-07-24 17:22 | XMS_ITS | Encounter Summary ---
Author Organization [facility] [place] [address] Care Team Providers Care Sap Technical Architect Name Role Phone Radha Mckeon MD Primary Care Provider [phone] Encounter Details Date Type Department Care Team (Late st Contact Info) Description 05/27/2022 Telephone [place] [address] Kareem Mckeon, DIRECTOR BUSINESS DEVELOPMENT Social History Tobacco Use Types Packs/Day Years [...] a skilled nursing (including now)? No 04/01/2022 Sex and Gender Information Value Date Recorded Sex Assigned at Not on file Gender Identity Not on file Sexual Orientation Not on file documented as of this encounter Miscellaneous Notes * Telephone Encounter - Kareem Mckeon MSW - 05/27/2022 2:28 PM EDTSummary: Phone Call follow up OFFICE of CARE MANAGEMENT CCM Mr. Machado returned Mammal Keeper call. Mammal Keeper provided Mr. Machado updated information regarding the conversation with the [place] [employer] admitting representative and informed him he has to contact the company directly. Because Mammal Keeper could not receive any additional information directly. Mr. Machado verbalized understanding and stated he will contactthe company directly to follow up. There are no other concerns to address at this time. SOY Kemp documented in this encounter Plan of Treatment Upcoming Encounters Date Type Department Care Team (Late st Contact Info) Description 08/18/2024 11:00 AM EDT Hospital Encounter Non-[place] [address] Arrived 02/22/2025 1:30 PM EDT Appointment [place] [address] 02/22/2025 2:30 PM EDT Office Visit [place]ology [place] [address] Ellis Childers MD [facility] DR HEMATOLOGY [place] [address] Felicita Landa APRN [facility] DR HEMATOLOGY [place] [address] documented as of this encounter Visit Diagnoses Not on filedocumented in this encounter Care Teams Sap Technical Architect Relationship Specialty Start Date End Date Radha Mckeon MD [address] [place] [address] PCP - General 09/23/10 documented as of this encounter
--- OUTSIDE RECORDS SUMMARY | 2024-07-24 17:23 | XMS_ITS | Encounter Summary ---
Author Organization [facility] [place] [address] Care Team Providers Care Gristmill Operator Name Role Phone Radha Mckeon MD Primary Care Provider [phone] Encounter Details Date Type Department Care Team (Late st Contact Info) Description 05/13/2022 Telephone Hematology [place] [address] Emmy Aguilar, RN Social History Tobacco Use Types Packs/Day [...] encounter Miscellaneous Notes * Telephone Encounter - Emmy Aguilar RN - 05/13/2022 10:53 AM EDT RN called, LVM for Malik regarding taking the Dexamethasone for four days prior to surgery on the . Left call back number and encouraged patient to call the office with any questions or concerns. documented in this encounter Plan of Treatment Upcoming Encounters Date Type Department Care Team (Late st Contact Info) Description 08/18/2024 11:00 AM EDT Hospital Encounter Non-Invasive Cardiology Lab [place] [phone] Arrived 02/22/2025 1:30 PM EDT Appointment Hematology [place] [address] 02/22/2025 2:30 PM EDT Office Visit Hematology and Oncology at [place] [phone] Ellis Childers MD [facility] DR HEMATOLOGY [place] [address] Felicita Landa APRN [facility] HEMATOLOGY [place] [address] documented as of this encounter Visit Diagnoses Not on filedocumented in this encounter Care Teams Gristmill Operator Relationship Specialty Start Date End Date Radha Mckeon MD [address] [place] [address] PCP - General 09/23/10 documented as of this encounter
--- OUTSIDE RECORDS SUMMARY | 2024-07-24 17:23 | XMS_ITS | Encounter Summary ---
Author Organization [facility] [place] [address] Care Team Providers Care Allergist/Md Name Role Phone Radha Mckeon MD Primary Care Provider [phone] Encounter Details Date Type Department Care Team (Late st Contact Info) Description 04/17/2022 Telephone [facility] [place] [address] Kareem Mckeon, STATE DIRECTOR Social History Tobacco Use Types Packs/Day Years [...] Telephone Encounter - Kareem Mckeon MSW - 04/17/2022 1:41 PM EDTSummary: Telephone Follow up OFFICE of CARE MANAGEMENT CCM Mr. Machado contacted Machine Rope Maker by phone to discuss his pending upcoming surgery. Mr. Machado provided an update regarding his upcoming surgery date. Mr. Machado also informed Machine Rope Maker that he is awaiting an update regarding test results from the Buttonhole Maker Hand Oncologist. Machine Rope Maker reiterated to Mr. Machado that she will continue to link/refer for Community resources as necessary to assist with his treatment plan of care. Mr. Machado stated he will contact Machine Rope Maker to inform ofany additional Community resource needs. Machine Rope Maker verbalized understanding. There are no otherconcerns to address at this time. SOY Kemp documented in this encounter Plan of Treatment Upcoming Encounters Date Type Department Care Team (Late st Contact Info) Description 08/18/2024 11:00 AM EDT Hospital Encounter Non[place] [address] Arrived 02/22/2025 1:30 PM EDT Appointment Hematology [place] [address] 02/22/2025 2:30 PM EDT Office Visit Hematology [place] [address] Ellis Childers MD [facility] [place] [address] Felicita Landa APRN [facility] [place] [address] documented as of this encounter Visit Diagnoses Not on filedocumented in this encounter Care Teams Allergist/Md Relationship Specialty Start Date End Date Radha Mckeon MD [address] [place] [address] PCP - General 09/23/10 documented as of this encounter
--- OUTSIDE RECORDS SUMMARY | 2024-07-24 17:23 | XMS_ITS | Encounter Summary ---
Author Organization [facility] [place] [address] Care Team Providers Care Debridging Machine Operator Name Role Phone Radha Mckeon MD Primary Care Provider [phone] Encounter Details Date Type Department Care Team (Late st Contact Info) Description 04/15/2022 Telephone Hematology [place] [address] Tyesha Nicolas, RN Social History Tobacco Use Types Packs/Day [...] AM EDT Hospital Encounter Non-Invasive [place] [address] Arrived 02/22/2025 1:30 PM EDT Appointment Hematology and Oncology at [place] [address] 02/22/2025 2:30 PM EDT Office Visit Hematology and Oncology at [place] [address] Ellis Childers MD [facility] [address] [place] [address] Felicita Landa APRN [facility] [address] [place] [address] documented as of this encounter Procedures Procedure Name Priority Date/Time Associated Diagnosis Comments CBC (WITH DIFF) Routine 04/14/2022 1:00 PM EDT documented in this encounter Results * (ABNORMAL) CBC (with Diff) (04/14/2022 1:00 PM EDT) White Blood Cell 13.11(H) EXTERNAL LAB Red Blood Cell 5.18 EXTERNAL LAB Hemoglobin 15.9 EXTERNAL LAB Hematocrit 46.9 EXTERNAL LAB Platelet 97 EXTERNAL LAB Neutrophil Absolute (ANC) - Automated 11.03(H) EXTERNAL LAB Blood 04/14/2022 1:00 PM EDT Historical Provider HEMATOLOGY ORDERA BLES EXTERNAL LAB documented in this encounter Visit Diagnoses Not on filedocumented in this encounter Care Teams Debridging Machine Operator Relationship Specialty Start Date End Date Radha Mckeon MD [address] [place] [address] PCP - General 09/23/10 documented as of this encounter
--- OUTSIDE RECORDS SUMMARY | 2024-07-24 17:23 | XMS_ITS | Encounter Summary ---
Author Organization [facility] [place] [address] Care Team Providers Care Band Sawing Machine Operator Name Role Phone Radha Mckeon MD Primary Care Provider [phone] Encounter Details Date Type Department Care Team (Late st Contact Info) Description 04/27/2022 Orders Only Hematology [place] [phone] Felicita Landa APRN [facility] HEMATOLOGY [place] [address] Thrombocytopenia Social History Tobacco Use Types Packs/Day [...] AM EDT Hospital Encounter Non-Invasive Cardiology Lab [address] Arrived 02/22/2025 1:30 PM EDT Appointment Hematology and Oncology at [place] [address] 02/22/2025 2:30 PM EDT Office Visit Hematology and Oncology at [place] [address] Ellis Childers MD [facility] DR [place] [address] Felicita Landa APRN [facility] [address] [place] [address] documented as of this encounter Visit Diagnoses Diagnosis Thrombocytopenia Thrombocytopenia, unspecified documented in this encounter Care Teams Band Sawing Machine Operator Relationship Specialty Start Date End Date Radha Mckeon MD [address] [place] [address] PCP - General 09/23/10 documented as of this encounter
--- OUTSIDE RECORDS SUMMARY | 2024-07-24 17:23 | XMS_ITS | Encounter Summary ---
Author Organization [facility] [place] [address] Care Team Providers Care Nuclear Unit Operator Name Role Phone Radha Mckeon MD Primary Care Provider [phone] Encounter Details Date Type Department Care Team (Late st Contact Info) Description 05/11/2022 Telephone [place]ematology [place] [address] Tyesha Nicolas, RN Social History [...] encounter Miscellaneous Notes * Telephone Encounter - Tyesha Nicolas RN - 05/11/2022 3:02 PM EDT Call placed to [facility] [phone] [facility] Services to be provided for pt are: CBC `05/18 Orders faxed to [phone] documented in this encounter Plan of Treatment Upcoming Encounters Date Type Department Care Team (Late st Contact Info) Description 08/18/2024 11:00 AM EDT Hospital Encounter Non[place] [address] Arrived 02/22/2025 1:30 PM EDT Appointment Hematology [place] [address] 02/22/2025 2:30 PM EDT Office Visit [place]ematology [place] [address] Ellis Childers MD [facility] DR HEMATOLOGY [place] [address] Felicita Landa APRN [facility] [address] HEMATOLOGY AND ONCOLOGY [place], [place] [phone] documented as of this encounter Visit Diagnoses Not on filedocumented in this encounter Care Teams Nuclear Unit Operator Relationship Specialty Start Date End Date Radha Mckeon MD [address] [place] [address] PCP - General 09/23/10 documented as of this encounter
--- OUTSIDE RECORDS SUMMARY | 2024-07-24 17:23 | XMS_ITS | Encounter Summary ---
Author Organization [facility] [place] [address] Care Team Providers Care Seafood Manager Name Role Phone Radha Mckeon MD Primary Care Provider [phone] Encounter Details Date Type Department Care Team (Late st Contact Info) Description 04/09/2022 Telephone Hematology [place] [address] Tyesha Nicolas, RN Social History [...] Telephone Encounter - Tyesha Nicolas RN - 04/09/2022 7:22 AM EDT T/C: RN made contact with Malik and reviewed the plan for trial of Dex. He confirms he is already taking 40mg daily of omeprazole, this nurse advised he continue this during the 4 days of Dex. Malik verbalized understanding that he will need a CBC drawn the day after he finishes his 4 day course. If he is able to obtain the medication early enough today he will start it, if not, he will start tomorrow. CBC will be drawn either Wednesday or Wednesday at [facility], we will obtain results and determine plan moving forward. Patient will be notified. Malik confirmed understanding and agreement with this plan. RN worked with scheduling to arrange for CBC draw, and will monitor for results. ----- Message from Ellis Guy MD sent at 04/08/2022 4:31 PM EDT ----- Regarding: RE: PLEASE ADVISE - FW: [facility] called re; medication responsibility clarification Dex 40mg x 4 days sent . Please advise him to take OTC omeprazole 40mg daily . Take Dex in the AM. We should check CBC on the day after he finishes his 4 day course of Dex. thx ----- Message ----- From: Tyesha Nicolas RN Sent: 04/08/2022 2:03 PM EDT To: Tyesha Nicolas RN, # Subject: PLEASE ADVISE - FW: [facility] # Would you be comfortable with giving the patient a trial pulse of dex to ensure it works prior to using it for the surgery. Patient is extremely uncomfortable, he is already upset that he needs to wait until May for the surgery, and would be devastated if the pulse of Dex doesn't work and they have to cancel the surgery. If you are ok with this, please send script to Jan in [facility], and let me know - I will call the patient and let him know! Thank you! ----- Message ----- From: Tyesha Nicolas RN Sent: 04/08/2022 12:00 AM EDT To: Tyesha Nicolas RN Subject: URGENT - FW: [facility] called # Spoke to Gianfranco...reviewed plan in Rowena's message today (04/06). Patient is concerned - is it possible to trial dex to see if it will work, rather than 'chancing it' right before surgery. ----- Message ----- From: Shruthi Aguiar Sent: 04/06/2022 3:45 PM EDT To: [facility] Hem Onc Triage Hematology Subject: [facility] called re; medicatio# Kristen Arambula! TORREY Medel from the [facility] called. She says that they noted in Malik's chart that per Rowena he needs Dexamethosone. Gianfranco says that the team at the [facility] needs to know if our office will beprescribing the Dexamethosone, or if Rowena needs them to? Please call the [facility] to discuss at [phone] - Ask for Gianfranco Thanks! Harriet documented in this encounter Plan of Treatment Upcoming Encounters Date Type Department Care Team (Late st Contact Info) Description 08/18/2024 11:00 AM EDT Hospital Encounter Non[place] [address] Arrived 02/22/2025 1:30 PM EDT Appointment Hematology [place] [address] 02/22/2025 2:30 PM EDT Office Visit Hematology [place] [address] [facility] DR [place] [address] L[address] [facility] [address] HEMATOLOGY [place] [address] Scheduled Orders Name Type Priority Associated Diagnoses Orde r Schedule CBC (with Diff) Lab STAT Thrombocytopenia Expected: 04/13/2022 (Approximate), Expires: 10/13/2022 documented as of this encounter Visit Diagnoses Diagnosis Thrombocytopenia Thrombocytopenia, unspecified documented in this encounter Care Teams Seafood Manager Relationship Specialty Start Date End Date Radha Mckeon MD [address] [place] [address] PCP - General 09/23/10 documented as of this encounter
--- OUTSIDE RECORDS SUMMARY | 2024-07-24 17:23 | XMS_ITS | Encounter Summary ---
Author Organization [facility] [place] [address] Care Team Providers Care Fur Scraper Name Role Phone Radha Mckeon MD Primary Care Provider [phone] Encounter Details Date Type Department Care Team (Late st Contact Info) Description 04/07/2022 Notes Only Hematology [place] [address] Nichole Montero Social History Tobacco Use Types Packs/Day Years [...] as of this encounter Progress Notes * Nichole Montero - 04/07/2022 3:10 PM EDT Community Health Sample Examiner sent this letter to patient ,due to SDOH+ screen and being seen for non cancer patient visit. Also included my telephone number. Dear Patient, 04/07/2022 Thank you for your recent visit to [facility]. We recognize that many things beyond medical care affect your health and wellbeing. During your recent visit, you completed the Social Determinants of Health questionnaire. Your responses indicate that you would like information about assistance programs and community resources. 211 is a great resource. [place] 211 and [place] 211 offer [place] and [place] residents detailed descriptions about programs and services provided by local community groups. A specially trained Information and Proofer will guide and assist you. 211 can provide contact information for State resources for: ??? Housing services including homelessness, rental assistance, fuel assistance, utilities and housing expenses ??? Food services including food stamps, finding food, and Meals on Wheels ??? Health related services including health insurance, health care assistance, mental health and COVID-19. Other services including transportation, child development specialist, aging and senior services, legal assistance, paying bills and much more. Call 211 by dialing 2-1-1 available 24 hours/7 days a week. If you are worried about your safety, call one of the toll-free numbers for your location to get help that is free and confidential: [place] hotline [place] Sexual Violence hotline [place] Domestic Violence hotline [place] Sexual Violence hotline Call 911 if you are in immediate danger. You may contact me if you would like a free consult, at your next scheduled appointment at [facility]. Nichole Montero Community Health Sample Examiner documented in this encounter Plan of Treatment Upcoming Encounters Date Type Department Care Team (Late st Contact Info) Description 08/18/2024 11:00 AM EDT Hospital Encounter Non-Invasive [place] [address] Arrived 02/22/2025 1:30 PM EDT Appointment Hematology and Oncology at [place] [phone] 02/22/2025 2:30 PM EDT Office Visit Hematology and Oncology at [place] [address] Ellis Childers MD [facility] [address] [place] [address] Felicita Landa APRN [facility] [address] [place] [address] documented as of this encounter Visit Diagnoses Not on filedocumented in this encounter Care Teams Fur Scraper Relationship Specialty Start Date End Date Radha Mckeon MD [address] [place] [address] PCP - General 09/23/10 documented as of this encounter
--- OUTSIDE RECORDS SUMMARY | 2024-07-24 17:23 | XMS_ITS | Encounter Summary ---
Author Organization [facility] [place] [address] Care Team Providers Care Flash Drier Operator Name Role Phone Radha Mckeon MD Primary Care Provider Encounter Details Date Type Department Care Team (Late st Contact Info) Description 04/30/2022 Orders Only [place] [address] Ellis Childers MD [facility] [address] [place] [address] Social History Tobacco Use Types Packs/Day Years [...] AM EDT Hospital Encounter Non-Invasive Cardiology Lab [address] Arrived 02/22/2025 1:30 PM EDT Appointment Hematology and Oncology at [place] [address] 02/22/2025 2:30 PM EDT Office Visit Hematology and Oncology at [place] [address] Ellis Childers MD [facility] [address] HEMATOLOGY [place] [address] Felicita Landa APRN [facility] HEMATOLOGY [place] [address] documented as of this encounter Visit Diagnoses Not on filedocumented in this encounter Care Teams Flash Drier Operator Relationship Specialty Start Date End Date Radha Mckeon MD [address] [place] [address] PCP - General 09/23/10 documented as of this encounter
--- OUTSIDE RECORDS SUMMARY | 2024-07-24 17:23 | XMS_ITS | Encounter Summary ---
Author Organization [facility] [place] [address] Care Team Providers Care Sewing Machine Adjuster Name Role Phone Radha Mckeon MD Primary Care Provider [phone] Encounter Details Date Type Department Care Team (Late st Contact Info) Description 04/22/2022 9:30 AM EDT - 04/22/2022 10:15 AM EDT Surgery [place] [address] Ellis Childers MD [facility] [place] [address] ([facility] MSURG) BONE MARROW BIOPSY AND ASPIRATION; DIAGNOSTIC (WRVU 1.44) Social History Tobacco Use Types Packs/Day Years [...] Sign Reading Time Taken Comments Blood Pressure 146/79 04/22/2022 10:13 AM EDT Pulse 70 04/22/2022 10:13 AM EDT Temperature 37.6 ??C (99.7 ??F) 04/22/2022 8:58 AM ED T Respiratory Rate 18 04/22/2022 10:13 AM EDT Oxygen Saturation 98% 04/22/2022 10:13 AM EDT Inhaled Oxygen Concentration - - Weight 79.8 kg (176 lb) 04/22/2022 8:58 AM EDT Height 180.3 cm (5' 11) 04/22/2022 8:58 AM EDT Body Mass Index 24.55 04/22/2022 8:58 AM EDT documented in this encounter Discharge Instructions * Discharge Instructions* Harjit Baker, RN - 04/22/2022 8:42 AM EDT OUTPATIENT SURGERY POST-OPERATIVE INSTRUCTIONS BONE MARROW BIOPSY SITE You have had a bone marrow aspiration and or/biopsy, which is like having an operation with a tiny,deep incision. Do Not do any strenuous work today, like housework, yard work, sports of any kind or lifting more than 5 pounds as it may cause your bone marrow site to bleed. To avoid infection, leave the clear plastic dressing on the site for three days. You may shower, bathe, or swim as you wish, provided the clear dressing remains intact, and all sides of the dressing are firmly adhered to the skin. In the unlikely event that a portion or the entire dressing should come off, you may replace it with a conventional cloth band aid. However, you will no longer be able to get the site wet until three days have passed, as a conventional band aid is not waterproof and the site is no longer a sterile area. It is not unusual for the site to leak a scant amount of blood, so do not be alarmed to see a smallcollection, or ???puddle?? of blood under the dressing. Wound healing will still occur. If you are uncertain if there is an increase in any leaking from your bone marrow site, roll up a towel, lie down on a firm surface, place the towel directly over the puncture site to apply pressure,and rest there for one half hour. Direct, FIRM thumb pressure applied to the site for 10 minutes works well as an alternative method. Leave the dressing on. Most people do not experience much discomfort after this procedure, but if you do, you should ask your physician what to take. AVOID ASPIRIN PRODUCTS as these interfere with clotting. After three days, remove your dressing and leave it off, so the air can get to the site to finish the healing process. NOTIFY YOUR DOCTOR FOR: Redness Heat Fever Swelling Drainage Increased pain Foul odor (which may not be apparent through the dressing) If you are having problems or have any additional concerns or questions: Between 8am and 5pm - Call the Hematology Clinic at . After 5pm or on a weekend: Call the [facility] regulator operator at and ask for the physician erp consultant covering for your doctor. Instructions following sedation You may have received medication before and/or during your procedure, which affects judgement and reaction time. Use caution with stairs. Do not drive, operate machinery, drink alcoholic beverages, or make any legal decisions for 24 hours. You may eat a regular diet as tolerated. Do not smoke if you are alone. IV site -- slight redness, or tenderness is normal, you can use a warm compress. If tenderness and redness increases or foul drainage occurs, please contact [place] [address] [email or web address] [employer] [facility] [employer] [facility], [facility] [place] documented in this encounter Medications at Time [...] QD 04/23/2020 fluticasone propionate (FLONASE) 50 mcg/actuation Sullivan, Suspension INSTILL 1SPRAY IN EACH NOSTRIL TWICE [...] daily. 05/20/2022 documented as of this encounter Progress Notes * Harjit Baker RN - 04/22/2022 11:00 AM EDT Discharge instructions and medications reviewed with patient. All questions answered and written copy sent home with patient. Patient ambulated to car for discharge accompanied by Harjit Marin. * Harjit Baker RN - 04/22/2022 9:04 AM EDT Pt states he does not have a ride home on arrival to preop. Patient spoke with Amanda about this yesterday and is okay having the procedure without sedation today. * Harjit Baker RN - 04/22/2022 8:47 AM EDT Patient in ED last night for bleeding concerns, plts 102. Alondra DELIVERY STOCK CLERK made aware, continue to proceed for BMBX today. documented in this encounter H&P Notes * Shruthi Mayorga APRN - 04/22/2022 9:30 AM EDT Malik Machado is here today for a bone marrow biopsy and aspirate for Thrombocytopenia, concerningfor ITP. He is also taking Xarelto for Afib. He held this morning's dose prior to this procedure. He was seen in our ED last evening for a Right nares epistaxis, which they controlled with placement of a right anterior pack . Platelet count of 102k. Otherwise, he has had no changes in H & P since last exam dated on April 01, [address] Lennon. Local anesthesia only, as he does not havesomeone to drive him after the procedure. We will proceed with planned procedure. Shruthi Mayorga, MSN, PIE CHEF Nurse Practitioner Section of Hematology/Oncology [facility] Office phone: documented in this encounter Procedure Notes * Shruthi Mayorga APRN - 04/22/2022 9:30 AM EDTProcedure(s): HC BONE MARROW ASPIRATION PERFORMED W BIOPSY THROUGH BX INCISION Pre-Procedure Diagnose(s): Thrombocytopenia BONE MARROW BIOPSY AND ASPIRATION PROCEDURE NOTE Date/Time of Procedure: April 22, 2022 at 10:20am Proceduralist: SHRUTHI MAYORGA APRN, RN, MS, WAITER/WAITRESS THIRD CLASS DIAGNOSIS: Thrombocytopenia Pre-Procedure: (x) Consent signed and on chart. (x) CBC drawn within 3 days. (x) Medications/Allergies () H & P complete Prior to start of procedure the following is verified in a TIME OUT: (x) Patient identity (x) Planned procedure (x) Safety concerns IV ACCESS: NA PAIN INTERVENTION: None Sterile Condition: Chlorohexidine was used to sterilize the area. Sterile drapes were used to create a sterile field. Local Anesthesia: 1% Lidocaine 15mLs with Sodium Bicarbonate 8.4% 2mLs PROCEDURE: A bone marrow biopsy and aspiration was performed on the RIGHT posterior iliac crest. Tegaderm dressing placed and pressure applied to site(s) for 30 minutes following the procedure. Estimated Blood Loss: Moderate Complications: Painful procedure. POST INTERVENTION CARE & PAIN ASSESSMENT: Per [facility] nurses. Follow-up: Written/Verbal instructions for site care given to patient per [facility] nurses. Follow-up with Physician as instructed. - He held today's morning dose of Xarelto and will resume tomorrow - Tylenol 1 gram po x 1 prior to discharge from [facility], given his long travel home - If he needs a repeat bone marrow in the future, consider conscious sedation (he was to have it with this procedure, but did not have anyone to drive him home after) Shruthi Mayorga, MSN, PIE CHEF Nurse Practitioner Section of Hematology/Oncology [facility] Office phone: documented in this encounter Plan of Treatment Upcoming Encounters Date Type Department Care Team (Late st Contact Info) Description 08/18/2024 11:00 AM EDT Hospital Encounter Non-[place] [address] Arrived 02/22/2025 1:30 PM EDT Appointment Hematology [place] [address] 02/22/2025 2:30 PM EDT Office Visit Hematology [place] [address] Ellis Childers MD [facility] DR HEMATOLOGY AND ONCOLOGY [place], [place] [id number] Felicita Landa APRN [facility] HEMATOLOGY AND ONCOLOGY [place], [place] [id number] documented as of this encounter Procedures Procedure Name Priority Date/Time Associated Diagnosis Comments BONE MARROW FINAL REPORT Routine 04/22/2022 10:20 AM EDT Diagnostic Bone Marrow Biopsies & Aspirations ([id number]) 04/22/2022 9:49 AM EDT thrombocytopenia CHROMO REPORT ACQUIRED Routine 04/22/2022 8:41 AM EDT IRON STAIN, BONE MARROW Routine 04/22/2022 8:41 AM EDT BONE MARROW PANEL ([facility] [place]/CGP/APD) Routine 04/22/2022 8:41 AM EDT ([facility]) BONE MARROW BIOPSY AND ASPIRATION; DIAGNOSTIC Routine 04/22/2022 8:40 AM EDT documented in this encounter Results * Bone Marrow Final Report (04/22/2022 10:20 AM EDT) Final Diagnosis [id number] ? Location: [facility] The signing pathologist has (i) examined the relevant preparation(s) for the specimen(s) and (ii) rendered or confirmed the diagnosis(es). . ? Bone Marrow Final DIAGNOSIS BONE MARROW (PERIPHERAL SMEAR, ASPIRATE SMEAR, TOUCH PREP, CORE BIOPSY): ?? 1. ??Normocellular marrow (~50%) with complete multilineage hematopoiesis (see ?discussion) ?? 2. ??Iron stores are present per iron stain ?? 3. ??Peripheral smear with mild thrombocytopenia ?? 4. ??Cytogenetic studies pending Electronically signed by: ?Arden Sutton MD Verified: ??04/23/2022 23:47 ??Hematopathologist Performed at: ??-[facility] Dept. of Pathology, [place], [place] DISCUSSION The aspirate smears were particulate and cellular but showed no microscopic features diagnostic for a myelodysplastic syndrome (MDS) or other primary disorder of hematopoiesis. Cytogenetic studies are pending, and the possibility of MDS may be revisited if a clonal MDS-related aberrancy is identified. PERIPHERAL SMEAR WBC 7.1K/uL, RBC 4.6M/uL, HGB 14.2g/dL, MCV 91.2fL, RDW 12.2%, PLT 102K/uL The erythrocytes are normochromic and normocytic, without significant anemia. Anisopoikilocytosis and polychromasia are not increased. The total leukocyte count is normal, and leukocyte-subset counts are within reference limits. The neutrophils are mostly mature and without significant left-shift. Remaining leukocyte morphology is generally unremarkable. There is a mild thrombocytopenia, but platelet morphology is unremarkable. BONE MARROW ASPIRATE Adequacy: ?Smear/touch preparations adequate, cellular. G:E ratio: ? 2:1 Erythroid: ? Complete normoblastic maturation, no left-shift. Granulocyte: ?? Complete normal maturation, no left-shift. Megakaryocyte: Normal in number and morphology. Lymphocyte: ?Scattered mature forms seen, no aggregates appreciated. Other: ? Normal plasma cells, eosinophils, basophils, and mast cells. Iron stain: ?Iron stores present, no ring sideroblasts. DIFFERENTIAL Band/Seg 45%; Lymph 8%; [place] 2%; Eos 4%; Baso 0%; Metamyelocyte 5%; Myelocyte 3%; Promyelocyte 1%; Blast 1%; nRBC's 30%; Plasma cell 1% BONE MARROW BIOPSY and/or CLOT Core adequacy: ??Decalcified, limited Bx, ??scant subcortical marrow only. ? Clot ??adequacy: Scant/tiny marrow spicules, appear normocellular. Cellularity: ?? Scant clot spicules appear ~50% cellular. Erythroid: ? Precursors appear normal in proportion. Granulocyte: ?? Precursors appear normal in proportion. Megakaryocyte: Few normal forms seen. Lymphocytes: ?? No abnormal aggregates identified. Bone: ?Trabecular bone normal for age. . CLINICAL INFORMATION Specimen: ? Bone marrow, aspirate and biopsy, right Clinical Diagnosis: ? 71M; h/o unexplained thrombocytopenia Indication for Study: ?? Assess for an underlying marrow etiology SPECIMEN PROCESSING A - Labeled/Fixative: R hip, formalin. Quantity/Size: Single, 1.0 x 0.2 cm. Tissue Description: Core of pink-red bone. Also received is separate clot sample, scant fragments 0.2 cm in aggregate Sections/Processing : Blocks submitted for decalcification: A1. Entirely submitted in 2 cassettes labeled A1-A2. ??pps 04/23/2022 11:47 PM EDT [facility] BONE MARROW STRUCTURE / Unknown 04/22/2022 10:20 AM EDT 04/22/2022 10:20 AM EDT Ellis Childers MD PATHOLOGY/CYTOLO GY ORDERABLES [facility] [place] [address] * chromo report acquired (04/22/2022 8:41 AM EDT) Cytogenetics Acquired Report Final Report ?[id number] Specimen Type: Bone Marrow Specimen Condition: ~2.0mL, adequate Collection Date/Time: 04/22/2022 08:41 Received Date/Time: 04/22/2022 12:37 Indication: ??Thrombocytopen ia ---Results--- Please see the chromosome analysis scanned report in eD-H corresponding to this bone marrow specimen. This report was completed by [facility] and is located in 'Chart Review' under the Media tab. The documents are titled External Genetic Study. ---Karyotype--- See comments. ---Preparation-- - Culture Type: Other FISH Method: N/A ---Comments--- The specimen was referred to [facility] ([place], [place], Tel: ) for cytogenetic analysis. ---Disclaimer--- Please note that this is not a patient lab result and does not have an interpretative component. It is only provided to indicate the location of the final report in the EMR for this individual, which has the official interpretation of this test result. 04.30.22 (Electronic Signature) Verified By: Steve Olivas [facility] 04/22/2022 8:41 AM EDT 04/22/2022 12:37 PM EDT Ellis Childers MD HEMATOLOGY ORDER DELICIA Performing Organization Address City/[facility]/ZIP Co de Phone Number [facility] [place] [address] * Iron Stain, Bone Marrow (04/22/2022 8:41 AM EDT) Bone Marrow Iron Stain See Comment [facility] Comment:See Bone Marrow Repo rt [id number] under Hematopathology Reports. Bone Marrow 04/22/2022 8:41 AM EDT 04/22/2022 10:40 AM EDT Narrative Resulting Agency Comment Spec In Lab Ellis Childers MD HEMATOLOGY ORDER DELICIA Performing Organization Address City/[facility]/ZIP Co de Phone Number [facility] [place] [address] documented in this encounter Visit Diagnoses Not on filedocumented in this encounter Administered Medications Inactive Administered Medications - up to 3 most recent administrations Medication Order MAR Action Action Date Dose Rate Site acetaminophen (Tylenol) tablet 1,000 mg 1,000 mg, Oral, ONCE, 1 dose, On Wed04/22/22 at 1000, Maximum dose of acetaminophen is 4000 mg from all sources in 24 hours. When ordered for pain, acetaminophen should be given even when other ordered pain medications are indicated. , PACU Recovery, Routine Given 04/22/2022 10:27 AM EDT 1,000 mg fentaNYL (pf) (50 mcg/mL) multi-dose injection 25 mcg 25 mcg, Intravenous, EVERY 5 MIN PRN, Starting on Wed04/22/22 at 0840, Until Wed04/22/22 at 1316, Pain, Administer every 5 min to achieve pain scale 1-3. Hold for respiratory rate less than 8 breaths per minute. Dose not to exceed 200 mcg., Intra-Operative (Intra-Procedure), Routine flumazeniL (Romazicon) (0.1 mg/mL) injection 0.2 mg 0.2 mg, Intravenous, EVERY 2 MIN PRN, Starting on Wed04/22/22 at 0840, Until Wed04/22/22 at 1316, Benzodiazepine reversal, 0.2 mg intravenous, every 2 minutes PRN for total of 5 doses for respiratory rate less than 8 or SpO2 less than 90% despite supplement O2., Intra-Operative (Intra-Procedure), Routine lidocaine (Xylocaine) 1% (10 mg/mL) injection 3 mg 3 mg (0.3 mL), Subcutaneous, ONCE PRN, 1 dose, Starting on Wed04/22/22 at 0840, Until Wed04/22/22 at 1316, for discomfort with PIV insertion, Day of Surgery (Day of Procedure), Routine midazolam (pf) (Versed) (1 mg/mL) multi-dose injection 0.25-1 mg 0.25-1 mg, Intravenous, EVERY 5 MIN PRN, Starting on Wed04/22/22 at 0840, Until Wed04/22/22 at 1316, Anxiety, Administer every 5 minutes to achieve RASS (-)1. Hold for delirium/agitation. Dose not to exceed 4 mg., Intra-Operative (Intra-Procedure), Routine naloxone (Narcan) (0.4 mg/mL) injection 0.1 mg 0.1 mg, Intravenous, EVERY 2 MIN PRN, Starting on Wed04/22/22 at 0840, Until Wed04/22/22 at 1316, Opioid Reversal, For opiate induced oversedation or respiratory depression. (maximum dose of 0.8 mg), Intra-Operative (Intra-Procedure), Routine sodium chloride 0.9 % (flush) (BD PosiFlush Normal Saline 0.9) flush 5 mL 5 mL, Intravenous, EVERY 12 HOURS, First dose on Wed04/22/22 at 0900, Until Discontinued, Day of Surgery (Day of Procedure), Routine sodium chloride 0.9 % (flush) (BD PosiFlush Normal Saline 0.9) flush 5-20 mL 5-20 mL, Intravenous, EVERY 1 MIN PRN, Starting on Wed04/22/22 at 0840, Until Wed04/22/22 at 1316, flush, Flush pertains to all indwelling lines. Flush per protocol found in the job aid using the link provided on this medication record., Day of Surgery (Day of Procedure), Routine sodium chloride 0.9% infusion 1,000 mL, at 100 mL/hr, Intravenous, CONTINUOUS, Starting on Wed04/22/22 at 0900, Until Wed04/22/22 at 1316, Day of Surgery (Day of Procedure) documented in this encounter Active and Recently Administered Medications Times are shown in EDT. Scheduled Medication Order 04/20/2022 04/21/2022 04/22/2022 acetaminophen (Tylenol) tablet 1,000 mg (COMPLETED) 1,000 mg, Oral, ONCE, 1 dose, On Wed04/22/22 at 1000, Maximum dose of acetaminophen is 4000 mg from all sources in 24 hours. When ordered for pain, acetaminophen should be given even when other ordered pain medications are indicated. , PACU Recovery, Routine 1027 (Given - Provid er: Harjit Melendez RN) heparin (pf) (porcine) (1,000 unt/mL) injection for bone marrow biopsy as directed, ONCE, On Wed04/22/22 at 0900, 1 dose, Do not administer to patient. To be used to heparinize SYRINGE ONLY for bone marrow sample. , Day of Surgery (Day of Procedure) 0900 (Due) lidocaine (pf) (Xylocaine) (10 mg/mL) 1% injection 10 mg 10 mg (1 vial), Subcutaneous, ONCE, 1 dose, On Wed04/22/22 at 0900, To be given DURING the procedure, Day of Surgery (Day of Procedure), Routine 0900 (Due) sodium chloride 0.9 % (flush) (BD PosiFlush Normal Saline 0.9) flush 5 mL 5 mL, Intravenous, EVERY 12 HOURS, First dose on Wed04/22/22 at 0900, Until Discontinued, Day of Surgery (Day of Procedure), Routine 0900 (Due) Continuous Medication Order 04/20/2022 04/21/2022 04/22/2022 sodium chloride 0.9% infusion 1,000 mL, at 100 mL/hr, Intravenous, CONTINUOUS, Starting on Wed04/22/22 at 0900, Until Wed04/22/22 at 1316, Day of Surgery (Day of Procedure) 0900 (Due) PRN Medication Order 04/20/2022 04/21/2022 04/22/2022 fentaNYL (pf) (50 mcg/mL) multi-dose injection 25 mcg 25 mcg, Intravenous, EVERY 5 MIN PRN, Starting on Wed04/22/22 at 0840, Until Wed04/22/22 at 1316, Pain, Administer every 5 min to achieve pain scale 1-3. Hold for respiratory rate less than 8 breaths per minute. Dose not to exceed 200 mcg., Intra-Operative (Intra-Procedure), Routine flumazeniL (Romazicon) (0.1 mg/mL) injection 0.2 mg 0.2 mg, Intravenous, EVERY 2 MIN PRN, Starting on Wed04/22/22 at 0840, Until Wed04/22/22 at 1316, Benzodiazepine reversal, 0.2 mg intravenous, every 2 minutes PRN for total of 5 doses for respiratory rate less than 8 or SpO2 less than 90% despite supplement O2., Intra-Operative (Intra-Procedure), Routine lidocaine (Xylocaine) 1% (10 mg/mL) injection 3 mg 3 mg (0.3 mL), Subcutaneous, ONCE PRN, 1 dose, Starting on Wed04/22/22 at 0840, Until Wed04/22/22 at 1316, for discomfort with PIV insertion, Day of Surgery (Day of Procedure), Routine midazolam (pf) (Versed) (1 mg/mL) multi-dose injection 0.25-1 mg 0.25-1 mg, Intravenous, EVERY 5 MIN PRN, Starting on Wed04/22/22 at 0840, Until Wed04/22/22 at 1316, Anxiety, Administer every 5 minutes to achieve RASS (-)1. Hold for delirium/agitation. Dose not to exceed 4 mg., Intra-Operative (Intra-Procedure), Routine naloxone (Narcan) (0.4 mg/mL) injection 0.1 mg 0.1 mg, Intravenous, EVERY 2 MIN PRN, Starting on Wed04/22/22 at 0840, Until Wed04/22/22 at 1316, Opioid Reversal, For opiate induced oversedation or respiratory depression. (maximum dose of 0.8 mg), Intra-Operative (Intra-Procedure), Routine sodium chloride 0.9 % (flush) (BD PosiFlush Normal Saline 0.9) flush 5-20 mL 5-20 mL, Intravenous, EVERY 1 MIN PRN, Starting on Wed04/22/22 at 0840, Until Wed04/22/22 at 1316, flush, Flush pertains to all indwelling lines. Flush per protocol found in the job aid using the link provided on this medication record., Day of Surgery (Day of Procedure), Routine documented in this encounter Care Teams Sewing Machine Adjuster Relationship Specialty Start Date End Date Radha Mckeon MD [address] [place] [address] PCP - General 09/23/10 documented as of this encounter
--- OUTSIDE RECORDS SUMMARY | 2024-07-24 17:23 | XMS_ITS | Encounter Summary ---
Author Organization [facility] [place] [address] Care Team Providers Care Pharmacovigilance Scientist Name Role Phone Radha Mckeon MD Primary Care Provider [phone] Encounter Details Date Type Department Care Team (Late st Contact Info) Description 05/18/2022 Telephone [place] [phone] Anthony Mohamud MD [facility] [place] [address] Social History Tobacco Use Types Packs/Day Years [...] the money to buy more. Never true 06/01/20 22 Ran Out of Food in the [...] AM EDT Hospital Encounter Non[place] [address] Arrived 02/22/2025 1:30 PM EDT Appointment Hematology and Oncology at [place] [address] 02/22/2025 2:30 PM EDT Office Visit Hematology and Oncology at [place] [address] Ellis Childers MD [facility] DR HEMATOLOGY [place] [address] Felicita Landa APRN [facility] [address] HEMATOLOGY [place] [address] documented as of this encounter Visit Diagnoses Not on filedocumented in this encounter Care Teams Pharmacovigilance Scientist Relationship Specialty Start Date End Date Radha Mckeon MD [address] [place] [address] PCP - General 09/23/10 documented as of this encounter
--- OUTSIDE RECORDS SUMMARY | 2024-07-24 17:23 | XMS_ITS | Encounter Summary ---
Author Organization [facility] [place] [address] Care Team Providers Care Lithographic Artist Name Role Phone Radha Mckeon MD Primary Care Provider [phone] Reason for Visit * Reason Onset Date Comments Epistaxis 05/07/2022 Encounter Details Date Type Department Care Team (Late st Contact Info) Description 05/07/2022 Telephone Hematology [place] [address] Yumiko Kerns RN Epistaxis Social History Tobacco Use Types Packs/Day Years [...] file 04/01/2022 Housing Stability Vital Sign Answer Paknaj e Recorded In the last 12 months, [...] encounter Miscellaneous Notes * Telephone Encounter - Yumiko Kerns RN - 05/07/2022 11:18 AM EDT Message received from attendance secretary: Patient called to say that he has had 5 nosebleeds in the last week and a half. 4 of them were pretty heavy. Please call him at [phone] RN Reviewed Chart: patient last seen via by Dr. Guy 04/24/22. 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 Last labs on 04/28 PLT 120 (lowest on record 70K). Plan is for surgery on 05/19 and then will consider further course after (?IVIG). No ENT referral on record, but has been toER for epistaxis in the recent past. Caller: Malik Relationship: Self Clarified Two Patient Identifiers: [x] Reason For Call: Nosebleed Assessment/Symptom Review (onset, location, duration, what makes it better or worse, pertinent positives and negatives): Started the day after his PLT TFN on the and Wednesday. Then again on Wednesday. Then again lastnight. Each time takes about 1 hour to control the bleeding. It is from his right nare only each time. To control the bleeding, he sits down, he pinches his nose and then stuffs the nare with tissue. 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 No other S&S of bleeding. No S&S of anemia. Was using a Flonase spray daily but has now stopped. RN instructed him to remain stopped for now asthis can thin nasal membranes and contribute to bleeding. Review of Systems Related to Reason for Call: System POS NEG Not Applicable Head (ENT /Neuro) [x] [] [] Cardiac [] [x] [] Respiratory [] [x] [] GI [] [x] [] [] [x] [] Musculoskeletal [] [x] [] Integumentary [] [x] [] Mental Health [] [x] [] Select Specific Decision Support Tool Used: Telephone Triage Protocols for Nurses, 6th Edition, Naz Rubalcava, 2020 Name of Guideline/Protocol Used: Bleeding Disposition/Plan of Care: Follow home care directions When bleed happens, applying pressure immediatley helps a clot to form faster. Sit down and apply pressure to bridge of nose between thumb and forefinger for a full and complete 5 min at least, repeat as needed. Apply ice to site to constrict vessels, 20 min on/20 min off with barrier between ice and skin. Obtain OTC nasal saline spray to use when not actively bleeding; keeping nasal passages moist can help prevent bleeds. If bleed doesn't stop in 30 min, seek nearest urgent care or ER for evaluation. RN discussed with Felicita Landa APRN: if bleed stops no need for labs Patient/Caregiver verbalizes understanding of plan of care: Yes Patient/Caregiver agrees with plan: Yes Advised patient/caregiver to: call office back for any new or worsening symptoms; emphasized symptoms that would require immediate ER/UC visit as per guideline in [place] Patient/Caregiver demonstrates understanding via teach back: Yes documented in this encounter Plan of Treatment Upcoming Encounters Date Type Department Care Team (Late st Contact Info) Description 08/18/2024 11:00 AM EDT Hospital Encounter Non[place] [address] Arrived 02/22/2025 1:30 PM EDT Appointment Hematology [place] [phone] 02/22/2025 2:30 PM EDT Office Visit Hematology [place] [phone] Ellis Childers MD [facility] [address] [place] [address] Felicita Landa APRN [facility] [address] [place]EMAT[place] [address] documented as of this encounter Visit Diagnoses Not on filedocumented in this encounter Care Teams Lithographic Artist Relationship Specialty Start Date End Date Radha Mckeon MD [address] [place] [address] PCP - General 09/23/10 documented as of this encounter
--- OUTSIDE RECORDS SUMMARY | 2024-07-24 17:23 | XMS_ITS | Encounter Summary ---
Author Organization [facility] [address] Care Team Providers Care Grease Worker Name Role Phone Radha Mckeon MD Primary Care Provider [phone] Reason for Visit * Reason Onset Date Comments Medical Care Coordination 05/15/2022 Encounter Details Date Type Department Care Team (Late st Contact Info) Description 05/15/2022 Telephone Hematology [place] [address] Yumiko Kerns RN Medical Care Coordination Social History Tobacco Use Types Packs/Day Years [...] Telephone Encounter - Yumiko Kerns RN - 05/15/2022 5:02 PM EDT Addendum: Malik called back. He confirms he took the 4 day course of Dexamethasone starting on 05/14. He confirms he is getting his labs at [facility] on 05/18 in the AM, thinks he will get them by 9-10 AM. He was told by surgical office that they will do the TFN as part of the surgery if it is needed. * Telephone Encounter - Yumiko Kerns RN - 05/15/2022 10:32 AM EDT Message received from Tyesha Nicolas RN: Please call patient and remind him to start his 4 day course of Dexamethasone. ?? He will get labs drawn on 05/18 to determine need for transfusion for 05/19 surgery. RN reviewed chart: Patient was called on 05/13 and message was left for him. 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 RN called, only got voicemail on both home and cell number. Stated hoped he'd done his course of dex and labs in 3L on 05/18 as early as he can in case of TFN need before surgery. documented in this encounter Plan of Treatment Upcoming Encounters Date Type Department Care Team (Late st Contact Info) Description 08/18/2024 11:00 AM EDT Hospital Encounter Non-[place] [address] Arrived 02/22/2025 1:30 PM EDT Appointment Hematology [place] [address] 02/22/2025 2:30 PM EDT Office Visit [place]ematology [place] [address] Ellis Childers MD [facility] [address] HEMATOLOGY [place] [address] Felicita Landa APRN [facility] [address] HEMATOLOGY [place] [address] documented as of this encounter Visit Diagnoses Not on filedocumented in this encounter Care Teams Grease Worker Relationship Specialty Start Date End Date Radha Mckeon MD [address] [place] [address] PCP - General 09/23/10 documented as of this encounter
--- OUTSIDE RECORDS SUMMARY | 2024-07-24 17:23 | XMS_ITS | Encounter Summary ---
Author Organization [facility] [place] [address] Care Team Providers Care Heavy Duty Mechanic Farm Equipment Name Role Phone Radha Mckeon MD Primary Care Provider [phone] Encounter Details Date Type Department Care Team (Late st Contact Info) Description 05/18/2022 External Results Hematology [place] [phone] Tyesha Nicolas, RN Social History Tobacco Use [...] AM EDT Hospital Encounter Non-Invasive [place] [address] Arrived 02/22/2025 1:30 PM EDT Appointment Hematology and Oncology at [place] [address] 02/22/2025 2:30 PM EDT Office Visit Hematology [place] [address] Ellis Childers MD [facility] [address] [place] [address] Felicita Landa APRN [facility] [address] [place] [address] documented as of this encounter Procedures Procedure Name Priority Date/Time Associated Diagnosis Comments CBC (WITH DIFF) Routine 05/18/2022 8:00 AM EDT documented in this encounter Results * (ABNORMAL) CBC (with Diff) (05/18/2022 8:00 AM EDT) White Blood Cell 10.4 EXTERNAL FACILITY Red Blood Cell 5.31 EXTER NAL FACILITY Hemoglobin 16.4 EXTERNAL FACILITY Platelet 92 EXTERNAL FACILITY Neutrophil Absolute (ANC) - Automated 9.24 EXTERNAL FACILITY Blood 05/18/2022 8:00 AM EDT Historical Provider HEMATOLOGY [facility] documented in this encounter Visit Diagnoses Not on filedocumented in this encounter Care Teams Heavy Duty Mechanic Farm Equipment Relationship Specialty Start Date End Date Radha Mckeon MD [address] [place] [address] PCP - General 09/23/10 documented as of this encounter
--- OUTSIDE RECORDS SUMMARY | 2024-07-24 17:23 | XMS_ITS | Encounter Summary ---
Author Organization [facility] [place] [address] Care Team Providers Care Industrial Roof Plumber Name Role Phone Radha Mckeon MD Primary Care Provider [phone] Encounter Details Date Type Department Care Team (Late st Contact Info) Description 05/18/2022 Notes Only [facility] [place] [phone] Nicole Persaud, RN Social History Tobacco Use Types Packs/Day [...] as of this encounter Progress Notes * Nicole Persaud RN - 05/18/2022 4:34 PM EDT Received communication regarding CBC completed 05/18/2022, report scanned into Media. Forwarded updated to Dr. Clayton and Dr. Mohamud. WBC: 10.40 RBC: 5.31 HGB: 16.4 PLT: 92 ANC: 9.24 documented in this encounter Plan of Treatment Upcoming Encounters Date Type Department Care Team (Late st Contact Info) Description 08/18/2024 11:00 AM EDT Hospital Encounter Non-Invasive Cardiology Lab [place] [phone] Arrived 02/22/2025 1:30 PM EDT Appointment Hematology [place] [phone] 02/22/2025 2:30 PM EDT Office Visit [place]ematology [place] [address] Ellis Childers MD [facility] [place] [address] Felicita Landa APRN [facility] [place] [address] documented as of this encounter Visit Diagnoses Not on filedocumented in this encounter Care Teams Industrial Roof Plumber Relationship Specialty Start Date End Date Radha Mckeon MD [address] [place] [address] PCP - General 09/23/10 documented as of this encounter
--- OUTSIDE RECORDS SUMMARY | 2024-07-24 17:23 | XMS_ITS | Encounter Summary ---
Author Organization [facility] [place] [address] Care Team Providers Care Public Speaking Instructor Name Role Phone Radha Mckeon MD Primary Care Provider [phone] Encounter Details Date Type Department Care Team (Late st Contact Info) Description 05/12/2022 Notes Only [facility] [place] [phone] Nicole Persaud, RN Social History Tobacco Use [...] Progress Notes * Nicole Persaud RN - 05/12/2022 11:59 PM EDT Contacted Tyesha Nicolas RN in [facility] regarding plan for post steroid pre op CBC to assess platelet count before 05/19/2022 surgery. Patient is to have CBC, which is ordered by Dr. Guy, drawn on 05/18/2022 at [facility]. Tyesha will forward CBC result to [facility] and plan will be platelet transfusions as needed based on that platelet count. Dr. Clayton and Dr. Mohamud updated regarding the above. documented in this encounter Plan of Treatment Upcoming Encounters Date Type Department Care Team (Late st Contact Info) Description 08/18/2024 11:00 AM EDT Hospital Encounter Non-Invasive Cardiology [place] [address] Arrived 02/22/2025 1:30 PM EDT Appointment Hematology [place] [address] 02/22/2025 2:30 PM EDT Office Visit Hematology [place] [address] Ellis Childers MD [facility] [place] [address] Felicita Landa APRN [facility] [place] [address] documented as of this encounter Visit Diagnoses Not on filedocumented in this encounter Care Teams Public Speaking Instructor Relationship Specialty Start Date End Date Radha Mckeon MD [address] [place] [address] PCP - General 09/23/10 documented as of this encounter
--- OUTSIDE RECORDS SUMMARY | 2024-07-24 17:23 | XMS_ITS | Encounter Summary ---
Author Organization [facility] [place] [address] Care Team Providers Care Fiberglass Fabricator Name Role Phone Radha Mckeon MD Primary Care Provider [phone] Encounter Details Date Type Department Care Team (Late st Contact Info) Description 05/08/2022 Telephone [place] [address] Marissa Burnette Social History Tobacco [...] * Telephone Encounter - Marissa Burnette - 05/08/2022 2:03 PM EDT retd voicemail left on DISTRIBUTION SYSTEMS SUPERINTENDENT line patient was looking to speak to Kareem, she is out of the office until 05/11/22. LVM to inform patient of this documented in this encounter Plan of Treatment Upcoming Encounters Date Type Department Care Team (Late st Contact Info) Description 08/18/2024 11:00 AM EDT Hospital Encounter Non-Invasive Cardiology Lab [place] [phone] Arrived 02/22/2025 1:30 PM EDT Appointment Hematology and Oncology at [place] [phone] 02/22/2025 2:30 PM EDT Office Visit Hematology and Oncology at [place] [phone] Ellis Childers MD [facility] [address] [place] [address] Felicita Landa APRN [facility] [place] [address] documented as of this encounter Visit Diagnoses Not on filedocumented in this encounter Care Teams Fiberglass Fabricator Relationship Specialty Start Date End Date Radha Mckeon MD [address] [place] [address] PCP - General 09/23/10 documented as of this encounter
--- OUTSIDE RECORDS SUMMARY | 2024-07-24 17:23 | XMS_ITS | Encounter Summary ---
Author Organization [facility] [place] [address] Care Team Providers Care Newspaper Photo Editor Name Role Phone Radha Mckeon MD Primary Care Provider Encounter Details Date Type Department Care Team (Late st Contact Info) Description 04/21/2022 External Results Hematology [place] [phone] Mariela Alfaro, RN Social History Tobacco Use Types Packs/Day [...] AM EDT Hospital Encounter Non-Invasive [place] [address] Arrived 02/22/2025 1:30 PM EDT Appointment Hematology and Oncology at [address] 02/22/2025 2:30 PM EDT Office Visit [place]ematology [place] [address] Ellis Childers MD [facility] [address] [place] [address] Felicita Landa APRN [facility] [address] [place] [address] documented as of this encounter Procedures Procedure Name Priority Date/Time Associated Diagnosis Comments CBC (WITH DIFF) Routine 04/17/2022 11:45 AM EDT documented in this encounter Results * (ABNORMAL) CBC (with Diff) (04/17/2022 11:45 AM EDT) White Blood Cell 10.24 4.4 - 10.8 EXTERNAL LAB Hemoglobin 15.5 13.5 - 17.5 EXTERNAL LAB Hematocrit 46.8 40.0 - 50.0 EXTERNAL LAB Platelet 70(A) 130 - 400 EXTERNAL LAB Neutrophil Absolute (ANC) - Automated 8.01(A) 1.2 - 6.7 EXTERNAL LAB Blood 04/17/2022 11:4 5 AM EDT Historical Provider HEMATOLOGY [facility] documented in this encounter Visit Diagnoses Not on filedocumented in this encounter Care Teams Newspaper Photo Editor Relationship Specialty Start Date End Date Radha Mckeon MD [address] [place] [address] PCP - General 09/23/10 documented as of this encounter
--- OUTSIDE RECORDS SUMMARY | 2024-07-24 17:23 | XMS_ITS | Encounter Summary ---
Author Organization [facility] [place] [address] Care Team Providers Care Photoengraver Apprentice Name Role Phone Radha Mckeon MD Primary Care Provider [phone] Reason for Visit * Consultation (Routine) - Closed Specialty Diagnoses / Procedures Referred By Becki guillory Referred To Contact Otolaryngology Diagnoses Thrombocytopenia Felicita Landa [facility] DR H[place]ATOLOGY [place] [address] [facility] [address] [place] [phone] Referral ID Status Reason Start Date Expiration Date V isits Requested Visits Authorized [id number] Closed Consult, Test & Treat 05/07/2022 05/07/2023 1 1 Encounter Details Date Type Department Care Team (Late st Contact Info) Description 05/13/2022 11:00 AM EDT Office [place] [address] Mariya Avendaño [facility] [place] [address] Epistaxis Social History Tobacco Use Types Packs/Day [...] this encounter Progress Notes * Mariya Avendaño, SHEETMETAL TRADES WORKER - 05/13/2022 11:00 AM EDT Epistaxis Date of Visit: Location of Visit: Otolaryngology Clinic, [facility] Patient: Malik Machado ([id number], 1950) Primary Care Provider: Radha Mckeon MD Referring Provider: No primary care provider on file. Reason for Visit: Malik is a 72 y.o. with history of epistaxis seen at the request of Felicita Cooper History of Present Illness: Malik is a 72 year old with a Hx of epistaxis. He does have a hx of A-fib and is on a blood thinner. He also has a hx of Thrombocytopenia. His platelets on 04/28 were 120. He is being followed by Hematology/Oncology for the Thrombocytopenia. He has had a hx of epistaxis for years but recently these have increased. It is generally on the right side. At times he has had difficulty getting them to stop. Most recently he was seen in the ER with an epistaxis. He did just have a platelet infusion. HE is scheduled to have neck surgery next Wednesday. He does have c/o ongoing nasal congestion which is worse when he is eating. HE does have a hx of seasonal allergies. Past Medical History: Other than above, see list Review of Systems: Pertinent positive findings discussed above. No other findings on review of constitutional, visual, cardiovascular, respiratory, gastrointestinal, genitourinary, musculoskeletal, dermatologic, neurological, psychiatric, endocrine, hematologic or immunulogic systems. Physical Examination: General: Age Appropriate interactive behavior in NAD. Face: Symmetric without dysmorphic features. Ears: Auricles symmetric bilateraly without lesions. External auditory canals have non occluding cerumen. On the left, tympanic membrane translucent. Middle ear on the left aerated. On the right, tympanic membrane translucent. Middle ear on the right aerated. Nose: Patent anteriorly; healthy pink mucosa without lesions. Mild inflammation bilateral nares R > L . Septum without significant deviation. Mouth: Lips and gingiva pink, moist, without lesions. Gum/dentition healthy. Tongue and floor of mouth soft without lesions or masses. Hard palate without lesions. Pharynx: Soft palate without lesions; uvula intact without evidence of submucus cleft palate. Oropharynx symmetric Neck: Soft, supple without significant lymphadenopathy. Thyroid gland without masses or asymmetry. Trachea midline without deviation. Procedure Note: none performed today Impression: Epistaxis with a hx of thrombocytopenia Recommendations: No cauterization done today. We discussed that further episodes of epistaxis can be prevented by avoiding digital manipulation (picking, rubbing etc. ) of the nose and excessive nose-blowing. Medications that increase the risk of epistaxis such as ibuprofen, aspirin. Maintaining a moist nasal environment is important in preventing further nosebleeds, and be accomplished by gentlyapplying AYR to the fleshy outer portions of the nostril and gently inhaling to coat the inside of the nostril; performing this twice daily is recommended. In addition, saline nasal spray may be usedintermittently throughout the day. A humidifier at night [...] symptoms increase or if there are any concerns.I did share with Malik that if he does have an epistaxis and it does not stop within a few minutes he should go to the nearest ER given his hx of thrombocytopenia. He agrees with this plan. Mariya Avendaño APRN [facility] Otolaryngology-Head and Neck Surgery [place], [place] [address] documented in this encounter Plan of Treatment Upcoming Encounters Date Type Department Care Team (Late st Contact Info) Description 08/18/2024 11:00 AM EDT Hospital Encounter [place] [address] Arrived 02/22/2025 1:30 PM EDT Appointment Hematology [place] [address] 02/22/2025 2:30 PM EDT Office Visit Hematology [place] [address] Ellis Childers MD [facility] HEMATOLOGY [place] [address] Felicita Landa APRN [facility] [place] [address] documented as of this encounter Visit Diagnoses Diagnosis Epistaxis documented in this encounter Care Teams Photoengraver Apprentice Relationship Specialty Start Date End Date Radha Mckeon MD [address] [place] [address] PCP - General 09/23/10 documented as of this encounter
--- OUTSIDE RECORDS SUMMARY | 2024-07-24 17:23 | XMS_ITS | Encounter Summary ---
Author Organization [facility] [place] [address] Care Team Providers Care Cdl Driver Name Role Phone Radha Mckeon MD Primary Care Provider [phone] Reason for Visit * Reason Comments Epistaxis Low platelets, sched uled for bone biopsy. Xaralto currently. Encounter Details Date Type Department Care Team (Late st Contact Info) Description 04/21/2022 11:41 PM EDT - 04/22/2022 1:33 AM EDT [place] [address] Malik Valencia MD [facility] [place] [address] Epistaxis; Thrombocytopenia; On continuous oral anticoagulation Discharge Disposition: Home Social History Tobacco Use [...] Sign Reading Time Taken Comments Blood Pressure 149/82 04/22/2022 1:00 AM EDT Pulse 74 04/22/2022 12:07 AM EDT Temperature 36.7 ??C (98.1 ??F) 04/22/2022 12:07 AM E DT Respiratory Rate 16 04/22/2022 12:07 AM EDT Oxygen Saturation 98% 04/22/2022 1:00 AM EDT Inhaled Oxygen Concentration - - Weight 79.8 kg (176 lb) 04/22/2022 12:07 AM EDT Height 180.3 cm (5' 11) 04/22/2022 12:07 AM EDT Body Mass Index 24.55 04/22/2022 12:07 AM EDT documented in this encounter Discharge Instructions * Discharge Instructions* Jose Aguirre MD - 04/22/2022 1:04 AM EDT Dear Mr. Machado, It was a pleasure caring for you today at [facility]. You came to see us today for a nosebleed. In the future should you develop a nosebleed we recommend that you blow your nose hard to remove all of the clot and then apply direct, continuous pressure for 15 to 20 minutes. Do not release the pressure at any point over that 15 to 20 minutes. After 15 to 20 minutes you may remove the pressure and check for bleeding. If you still have bleeding at that point you should come to the emergency department. Please return to the emergency department or seek immediate medical attention if you develop recurrent bleeding, any new symptoms that cause you concern, or if your symptoms worsen in any way. documented in this encounter Medications at Time [...] QD 04/23/2020 fluticasone propionate (FLONASE) 50 mcg/actuation [place], Suspension INSTILL 1SPRAY IN EACH NOSTRIL TWICE [...] daily. 05/20/2022 documented as of this encounter ED Notes * Jose Aguirre MD - 04/22/2022 1:15 AM EDTAssociated Order(s): Epistaxis Management ED Resident Note HPI: Malik Machado is a 71 y.o. male with history of A. fib on Xarelto, HTN, RBBB, thrombocytopenia whopresents to the Emergency Department with complaint of epistaxis. Patient reports that he is staying in a hotel this evening as [facility] Patient has had worsening thrombocytopenia hence the biopsy. He states that in his hotel room around 10 in the evening he developed bleeding from his right nare. He was unable to stop the bleeding with tissues and as such presented to the emergency department. Patient denies any other bleeding. He does not have any nausea. He thinks he swallowed only a mild amount of blood. He doeshave some sensation of blood running down the back of her throat. Patient states he does have allergies and uses Flonase regularly, he has been reacting to the pollen recently. Pt was seen under the supervision of an attending physician. Review of Systems Pertinent positives and negatives are included in the HPI, otherwise at least ten systems were reviewed and negative. Past Medical and Surgical Histories, Social History, Medications, Allergies were reviewed in the chart. Vitals: ED Triage Vitals [04/22/22 0007] BP: 157/88 Heart Rate: 74 Resp: 16 Temp: 36.7 ??C (98.1 ??F) Temp src: Oral SpO2: 96 % O2 Device: RA O2 Flow Rate (L/min): n/a Physical Exam Gen: awake and alert, speaking in full sentences, well-developed and well-nourished HEENT: normocephalic, atraumatic; tissue held to right nare with small amount of blood on the tissue, there is a 2 mm area of raw tissue with slight oozing at the right lateral nare, no other visualized bleeding within the nares Pulm: Easy work of breathing, no respiratory distress Card: Regular rate Ext: moves all extremities equally Neuro: AOx4, no focal deficit Skin: no rashes or lesions noted on already exposed skin Psych: normal affect and behavior ED Course: I have reviewed labs and imaging, images and available reports, and they are significant for: No orders to display ED Course as of 04/22/22 0344 WedApr 22, 2022 0120 Platelets(!): 102 0342 WBC: 7.1 0342 Hemoglobin: 14.2 Epistaxis Management Date/Time: 04/22/2022 3:43 AM Performed by: Jose Aguirre MD Authorized by: Malik Valencia MD Consent: Verbal consent obtained. Consent given by: patient Sedation: Patient sedated: no Treatment site: right anterior Repair method: anterior pack (The right anterior nare was packed with TXA soaked gauze after Afrin was instilled into the nare. A clamp was placed and was left on for 15 minutes.) Post-procedure assessment: bleeding stopped Treatment complexity: simple Patient tolerance: patient tolerated the procedure well with no immediate complications Assessment and Plan: 71 y.o. male with history of A. fib on Xarelto, HTN, RBBB, thrombocytopenia who presents to the Emergency Department with complaint of epistaxis. The patient was hemodynamically stable and vital signs were normal. Patient with chronic anticoagulation and thrombocytopenia presenting with epistaxis. He appears he has been very anterior right nare bleed that is not brisk. Bleed resolved easily with a single administration of TXA soaked gauze and nasal clamp. Check CBC given recent worsening thrombocytopenia and platelets were actually improved to greater than 100. I discussed the risk of recurrent bleeding with the patient and instructions for a single attempt at clamping at home otherwise recommended presentation to the emergency department given his anticoagulation and thrombocytopenia. Patient was comfortable with the plan for discharge home. The visit findings, diagnosis, and care plan were discussed with the patient. The diagnosis and care plans discussions were outlined in the discharge instructions. The patient expressed understanding of the details of the visit, the return precautions and that he should returnto the ER at any time for worsening symptoms, new symptoms, or other concerns. he agrees with the follow- up plan. Jose Aguirre MD Resident 04/22/22 0345 Associated attestation - Malik Valencia MD - 04/22/2022 7:58 AM EDT ED ATTENDING ATTESTATION The patient was seen in conjunction with Dr. Aguirre, the resident physician. I have independently performed the boyd portions of the history and physical exam. I have reviewed all diagnostic studies personally including labs, imaging studies and EKGs. I have discussed the details of the case with theresident and agree with the assessment and plan as described in the resident note above unless noted in my separate note. documented in this encounter Miscellaneous Notes * ED Triage - Shruthi Cardoza RN - 04/22/2022 12:10 AM EDT Pt reports that he had a sudden nose bleed that started about 3 hours ago, right nostril. Pt on Xaralto for Afib. Pt has low platelets for several months, scheduled for a bone marrow biopsy in the morning. HPI (Adult) Stated Reason for Visit: nose bleed History Obtained From: patient Duration (Hours): 3 documented in this encounter Plan of Treatment Upcoming Encounters Date Type Department Care Team (Late st Contact Info) Description 08/18/2024 11:00 AM EDT Hospital Encounter Non[place] [address] Arrived 02/22/2025 1:30 PM EDT Appointment Hematology [place] [address] 02/22/2025 2:30 PM EDT Office Visit Hematology and Oncology at [place] [address] Ellis Childers MD [facility] [address] [place] [address] Felicita Landa APRN [facility] [address] HEMATOLOGY [place] [address] documented as of this encounter Procedures Procedure Name Priority Date/Time Associated Diagnosis Comments EPISTAXIS MANAGEMENT - ED ONLY Routine 04/22/2022 3:43 AM EDT HEMOGRAM STAT 04/22/2022 12:35 AM EDT DIFFERENTIAL, AUTOMATED STAT 04/22/2022 12:35 AM EDT HC CBC,PLT & AUTO DIFF STAT 04/22/2022 12:35 AM EDT documented in this encounter Results * Epistaxis Management (04/22/2022 3:43 AM EDT) Narrative Malik Valencia MD - 04/22/2022 3:43 AM EDT Jose Aguirre MD ? 04/22/2022 ??3:45 AM Epistaxis Management Date/Time: 04/22/2022 3:43 AM Performed by: Jose Aguirre MD Authorized by: Malik Valencia MD Consent: Verbal consent obtained. Consent given by: patient Sedation: Patient sedated: no Treatment site: right anterior Repair method: anterior pack (The right anterior nare was packed with TXA soaked gauze after Afrin was instilled into the nare. ??A clamp was placed and was left on for 15 minutes.) Post-procedure assessment: bleeding stopped Treatment complexity: simple Patient tolerance: patient tolerated the procedure well with no immediate complications Malik Valencia MD ED ORDERABLES [facility] ED PERFS * Differential, Automated (04/22/2022 12:35 AM EDT) Neutrophil % 72.1 % [facility] Neutrophil Absolute 5.12 1.70 - 6.10 x10(3)/[facility] Lymph % 14.6 % [facility] Lymphocytes Abs 1.0 0.9 - 3.2 x10(3)/[facility] Monocyte % 10.1 % [facility] Monocyte Abs 0.7 0.3 - 0.9 x10(3)/[facility] Eos % 2.5 % [facility] Eosinophils Abs 0.2 0.0 - 0.4 x10(3)/[facility] Basophil % 0.3 % [facility] Baso Absolute 0.0 0.0 - 0.1 x10(3)/[facility]ORATORY Immature Gran % 0.40 % [facility] Comment: Immature granulocytes(IG's)percentage and absolute count will include metamyelocytes, myelocytes, and promyelocytes. Blood smears from CBCs yielding IG's will be scanned manually for concordance. If this scan disagrees with the automated IG or if promyelocytes are noted, a manual differential will be performed. Immature Gran Absolute 0.03 0.00 - 0.04 x10(3)/mcL [facility] Blood 04/22/2022 12:3 5 AM EDT 04/22/2022 1:06 AM EDT Narrative Resulting Agency Comment Spec In Lab Jose Aguirre MD HEMATOLOGY ORDERABLE S [facility] [place] [address] * (ABNORMAL) Hemogram (04/22/2022 12:35 AM EDT) White Blood Cell 7.1 4.0 - 9.5 x10(3)/mc L [facility] Red Blood Cell 4.56(L) 4.58 - 5.54 x10(6)/mc L [facility] Hemoglobin 14.2 13.7 - 16.5 g/dL [facility] Hematocrit 41.6 40.5 - 48.5 % [facility] Mean Cell Volume 91.2 82.9 - 93.1 fL [facility] Mean Cell Hemoglobin 31.1 27.5 - 32.1 pg [facility] Mean Cell Hemoglobin Concentration 34.1 32.0 - 35.7 g/dL [facility] Platelet 102(L) 145 - 357 x10(3)/mc L [facility] RDW Standard Deviation 40.5 36.0 - 45.0 [facility] RDW coefficient of variation 12.2 11.4 - 13.8 % [facility] Mean Platelet Volume 11.5 7.6 - 12.9 fL [facility] NRBC% auto 0.0 % [facility] NRBC Absolute 0.000 0.000 - 0.000 x10(3)/mc L [facility] Blood 04/22/2022 12:3 5 AM EDT 04/22/2022 1:06 AM EDT Narrative Resulting Agency Comment Spec In Lab Jose Aguirre MD HEMATOLOGY ORDERABLE S [facility] [place] [address] documented in this encounter Visit Diagnoses Diagnosis Epistaxis Thrombocytopenia Thrombocytopenia, unspecified On continuous oral anticoagulation documented in this encounter Administered Medications Inactive Administered Medications - up to 3 most recent administrations Medication Order MAR Action Action Date Dose Rate Site oxymetazoline (Afrin) 0.05 % nasal spray 1 spray 1 spray, Each Nare, Administer over 3 Days, ONCE, 1 dose, On Wed04/22/22 at 001MD Farrukh to administer, STAT Given 04/22/2022 12:18 AM EDT 1 spray tranexamic acid (Cykolkapron) (100 mg/mL) solution for topical 500 mg 500 mg, Alternative Route- Specify in Admin Instructions, ONCE, 1 dose, On Wed04/22/22 at 0012, WARNING: For Topical Use Only MD to administer, Routine Given 04/22/2022 12:18 AM EDT 500 mg documented in this encounter Active and Recently Administered Medications Times are shown in EDT. Scheduled Medication Order 04/20/2022 04/21/2022 04/22/2022 oxymetazoline (Afrin) 0.05 % nasal spray 1 spray 1 spray, Each Nare, Administer over 3 Days, ONCE, 1 dose, On Wed04/22/22 at MD Hernandez to administer, STAT 0018 (Given - Provid er: Shruthi Cardoza RN) tranexamic acid (Cykolkapron) (100 mg/mL) solution for topical 500 mg (COMPLETED) 500 mg, Alternative Route- Specify in Admin Instructions, ONCE, 1 dose, On Wed04/22/22 at 0012, WARNING: For Topical Use Only MD to administer, Routine 0018 (Given - Provid er: Shruthi Cardoza, TORREY) documented in this encounter Care Teams Cdl Driver Relationship Specialty Start Date End Date Radha Mckeon MD [address] [place] [address] PCP - General 09/23/10 documented as of this encounter
--- OUTSIDE RECORDS SUMMARY | 2024-07-24 17:23 | XMS_ITS | Encounter Summary ---
Author Organization [facility] [place] [address] Care Team Providers Care [employer]ed [employer] Plasma Etcher Name Role Phone Radha Mckeon MD Primary Care Provider [phone] Encounter Details Date Type Department Care Team (Late st Contact Info) Description 04/24/2022 4:15 PM EDT TH Visit (TeleHealth) [place]ology [place] [address] Ellis Childers MD [facility] [address] [place] [address] Thrombocytopenia Social History Tobacco Use Types Packs/Day [...] as of this encounter Progress Notes * Ellis Guy MD - 04/24/2022 4:15 PM EDT [facility] HEMATOLOGY TELE HEALTH FOLLOW UP VISIT NOTE DATE OF VISIT : 04/30/22 REASON FOR VISIT: f/up for thrombocytopenia HISTORY OF PRESENT ILLNESS Malik Machado is a 71 y.o. male with PMH of A. Fib, [...] differential, Hgb: 16, MCV: 95, platelets: 80k INTERIM Hx: His platelet count did not improve with 4-day course of dexamethasone 10 mg (platelet count was 97Kon day 5, dropped to 70 on day 8). So, will need bone marrow biopsy. He had a ED visit for epistaxis the night before the bone marrow biopsy. No further abnormal bleeding. PROBLEM LIST Patient Active Problem List Diagnosis ??? A-fib Overview Note: --Recurrent AF --S/P cardioversions x 3 (09/2005, 01/2006, 07/2007). --AF that has resolved spontaneously (12/2006, etc). 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 --Flecainide stopped after 4 doses due to NH/QRS prolongation, 12/2007. --Started on dofetilide 500mcg BID [...] periodic palpitations 2015. -- Admitted to [facility] 08/27/16, with A. fib at a rate of 112 bpm on metoprolol 100 mg daily/verapamil 180 mg daily; DCCV; metoprolol increased to 150 mg daily; started Eliquis. --Echo 11/2016: EF 58%. --Repeat afib ablation 11/23/2016: Veins still isolated; posterior wall isolation performed, stage IV. ??? Hypertension Overview Note: ??? Thrombocytopenia ??? Radiculopathy of cervical region [...] --Amitriptyline (palpitations), Lipitor (liver enzyme abnormalities), flecainide (NH/QRS prolongation noted 12/2007). ??? History of surgery [...] IMPLANTS USED: All implants were from the [employer] total knee system. 1. A size 4 [...] CURVED Procedure Date: 01/14/2010 ??? JOINT REPLACEMENT [id number] ??? PACEMAKER IMPLANT loop recorder ? ? PRO DIAGNOSTIC BONE MARROW BIOPSIES & ASPIRATIONS N/A 04/22/2022 ([facility] MSURG) BONE MARROW BIOPSY AND ASPIRATION; DIAGNOSTIC performed by Ellis Guy MD at [facility] OSC ??? PRO INCISE FINGER TENDON SHEATH Right 05/15/2021 TENDON SHEATH INCISION (TRIGGER FINGER) (WRVU 3.11) performed by Jovan Duong MD at [facility] MAIN OR ??? PRO REVISE KNEE JOINT REPLACE, ALL PARTS Right 11/15/2019 @TOTAL KNEE REVISION ARTHROPLASTY, COMPLETE (WRVU 27.11) performed by Sukhjinder Jauregui MD at [facility] MAIN OR ??? XR JOINT ASPIRATION - LARGE JOINT RIGHT Right 01/02/2019 XR Fluoro Guided Joint Aspiration Large Right 01/02/2019 [facility] RAD XRAY MEDICATIONS ??? [START ON 05/15/2022] dexAMETHasone (Decadron) 4 mg Tablet ??? metoprolol succinate XL (Toprol-XL) 100 mg Tablet Sustained Release 24 hr ??? zonisamide (ZONEGRAN) 50 mg Capsule ??? Emgality Pen 120 mg/mL Pen Injector ??? oxyCODONE (ROXICODONE) 15 mg Tablet ??? acetaminophen (Tylenol) 500 mg Tablet ??? pregabalin (LYRICA) 100 mg Capsule ??? lidocaine-prilocaine (EMLA) Cream ??? polyethylene glycoL (Miralax) 17 gram Powder in Packet ??? senna-docusate (Pericolace) 8.6-50 mg Tablet ??? acyclovir (ZOVIRAX) 200 mg Capsule ??? diclofenac (VOLTAREN) 1 % Gel ??? tamsulosin (Flomax) 0.4 mg Capsule ??? fluticasone propionate (FLONASE) 50 mcg/actuation [place], Suspension ??? Xarelto 20 mg Tablet ??? lamoTRIgine (LAMICTAL) 25 mg Tablet ??? SUMAtriptan (IMITREX) 100 mg Tablet ??? Triamcinolone Acetonide 0.025 % Lotion ??? omeprazole (PRILOSEC) 20 mg Capsule, Delayed Release(E.C.) ??? BOTOX 200 unit Recon Soln ??? verapamil (CALAN-SR) 120 mg Tablet Sustained Release ??? levothyroxine (Synthroid) 100 mcg Tablet ??? MULTIVITAMIN W-MINERALS/LUTEIN (CENTRUM SILVER ORAL) ??? fish oil-omega-3 fatty acids with vitamin E 1,000 mg Capsule ??? baclofen (LIORESAL) 10 mg tablet ??? [...] Flecainide Other (See Comments) Adverse effect caused NH and QRS prolongation Other reaction(s): Other (See Comments) Adverse effect caused NH and QRS prolongation Other reaction(s): Other (See Comment) PERSONAL and SOCIAL HISTORY ?? Lives in: [place], [place] (2.[place] hr from [facility]). [facility] is the closest hospital. ?? Work history: [...] ??? Cancer Brother 60 panceratic PHYSICAL EXAM Exam not performed as this is telehealth visit RADIOLOGY - None BONE MARROW (PERIPHERAL SMEAR, ASPIRATE SMEAR, TOUCH PREP, CORE BIOPSY): ?1. ??Normocellular marrow (~50%) with complete multilineage hematopoiesis (see ? discussion) ?2. ??Iron stores are present per iron stain ?3. ??Peripheral smear with mild thrombocytopenia ?4. ??Cytogenetic studies pending ASSESSMENT & PLANS Mr. Malik Machado is here for evaluation of isolated thrombocytopenia. 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 He did not respond to a trial of dexamethasone 40 mg x 4 days. So, bone marrow biopsy was performed to evaluate for primary hematological disorders. I reviewed the bone marrow biopsy. It showed normocellular marrow with completemultilineage hematopoiesis, with no dysplastic changes, or other primary disorders of hematopoiesis.. We could give him a trial of IVIG 1 g/kg/day x 2 days plus dexamethasone 40 mg x 4 days. However, in the interest of time as he is scheduled for his spine surgery on May 19, and as his baseline platelet count is 100 K, I recommend a trial of platelet transfusion with plan to use platelets to facilitate his spine surgery if he responds to the platelet transfusion adequately. Of note, on review of his records since 2012, for the past 8+ years, his platelet count was never below 50k. I will touch base with Rey Kinsey about my impression and recommendations after this trial of platelet transfusion. # Positive CHACORTA at 1 is to 160 titer : Advised him to follow-up with his PCP I reviewed my impression and recommendations with Malik Machado and answered all the questions.. Pt agreed with the plan. Thank you Radha Adams for asking us to see this very pleasant patient. Please don't hesitate to contact me if you'd like to discuss this patient's situation further. . Ellis Guy MD [facility] CC: MD Mike Mae Sarah M documented in this encounter Plan of Treatment Upcoming Encounters Date Type Department Care Team (Late st Contact Info) Description 08/18/2024 11:00 AM EDT Hospital Encounter Non-[place] [address] Arrived 02/22/2025 1:30 PM EDT Appointment Hematology [place] [address] 02/22/2025 2:30 PM EDT Office Visit Hematology [place] [address] Ellis Childers MD [facility] [address] [place] [address] Felicita Landa APRN [facility] [place] [address] documented as of this encounter Visit Diagnoses Diagnosis Thrombocytopenia Thrombocytopenia, unspecified documented in this encounter Care Teams [employer] Plasma Etcher Relationship Specialty Start Date End Date Radha Mckeon MD [address] [place] [address] PCP - General 09/23/10 documented as of this encounter
--- OUTSIDE RECORDS SUMMARY | 2024-07-24 17:23 | XMS_ITS | Encounter Summary ---
[place] [address] Care Team Providers Care Architectural Technician Name Role Phone Radha Mckeon MD Primary Care Provider [phone] Reason for Visit * Auth/Cert Specialty Diagnoses [...] Expiration Date Visits Re quested Visits Authorized [id number] 1 1 Encounter Details Date Type Department Care Team (Late st Contact Info) Description 05/19/2022 7:29 AM EDT Anesthesia Event Main [place] [address] Maricarmen Jessica MD [facility] [place] [address] Abelardo Mercado DO [facility] [place] [address] Anesthesia Record Procedure Summary Procedure Name Responsible Anesthesiologist Anesthesia Start Time Anesthesia Stop Time ARTHRODESIS, ANT INTERBODY,DECOMPRES TOD; CERVICAL BELOW C2 (WRVU 25) (Bilateral: Neck) Maricarmen Jessica MD 05/19/22 0729 05/19/22 1103 Events Date Time Event Comment 05/19/2022 0654 0725 AN Verify 0729 Start 0729 An Start Data 0734 An Induction 0741 An Intubation 0800 Anesthesia Ready 0936 Break/Relief In I assumed ca re for Break Relief before which we: 1. Identified the patient 2. Identified the responsible provider(s) 3. Reviewed the pertinent medical history 4. Discussed the surgical plan and course 5. Reviewed intra-op anesthesia management and issues during anesthesia 6. Set expectations for the relief (and/or post-procedure) period 7. Allowed opportunity for questions and acknowledgement of understanding Armando Flores 1001 Break/Relief Out 1043 Extubation/LMA Out 1051 an stop data 1103 Recovery or ICU Handoff Shannan ent care was transferred to the destination unit staff after review of the patient's medical history, current anesthetic/surgical status and plan, according to the Provider Handoff Checklist. 1103 Stop Meds Name Total Midazolam 2 mg fentaNYL 100 mcg Propofol 200 mg Rocuronium 130 mg Ondansetron 4 mg Dexamethasone 8 mg Propofol INF 608.48 mg ceFAZolin (Ancef) 2 g vial a ttach to sodium chloride 0.9% 100 mL Mini-Bag Plus 2 g Dexmedetomidine 8 mcg HYDROmorphone 2 mg/mL 1.6 mg Labetalol 5 mg Sugammadex 400 mg Lactated Ringers 800 mL Lactated Ringers 600 mL Sodium Chloride 0.9% 200 mL * Agents Name O2 Air N2O Sevoflurane (et) * Blood No blood administrations on file. Lines, Drains, and Airways Type Details Placement Removal Incision 05/19/22; 0821; neck 05/19/22 08 21 by Al Barlow RN Incision 04/04/18; 0925; ches t; LDA not present upon assessment; 05/19/22; 0821 04/04/18 0925 by Malik Tsang RN 05/19/22 0821 by Al Barlow RN Incision 11/15/19; 1320; knee ; vertical; 06/29/22 (LDA cleanup utility RA#[id number]); 1715 (LDA cleanup utility RA#[id number]) 11/15/19 1320 by Angelic Lorenzana RN 06/29/22 1715 by Jonathon Zacarias Incision 05/15/21; 1202; Righ t; hand; 06/29/22 (LDA cleanup utility RA#[id number]); 1715 (LDA cleanup utility RA#[id number]) 05/15/21 1202 by Juliocesar Louis RN 06/29/22 1715 by Jonathon Zacarias (RETIRED) Peripheral IV Line - Single Lumen 05/19/22; 0659; metacarpal vein (top of hand), right; eymf-zvy-xfbgth catheter system; Anatomical Landmarks; 20 gauge, 21 gauge; SAYDA; distraction, intradermal injection, tolerated well, appears comfortable; no longer indicated, removed per physician, removed per policy/procedure, catheter/device intact; 05/20/22; 1416 05/19/22 0659 by Veronika Swanson RN 05/20/22 1416 by Marla Dumont LNA ETT Mask Ventilation: Ea sy (1); ETT Type: Cuffed, Oral; ETT Size: 7.5 mm; Indirect: Video; Notes: Asleep, Pre-O2, Stylette; Attempts: 1; Laryngoscopy Grade: 1; ETT Placement Verified By: Auscultation, Capnometry, Visual; Secured at Teeth: 21 cm; Inserted by: Abelardo Mercado; Removal Date: 05/19/22; Removal Time: 1045 05/19/22 0746 by Abelardo Mercado DO 05/19/22 1045 by Abelardo Mercado DO (RETIRED) Peripheral IV Line - Single Lumen 05/19/22; 0808; dorsal arch vein (top of hand), left; wvcz-lso-qbvsfc catheter system; 16 gauge; Maricarmen Jessica; no longer indicated, removed per physician, removed per policy/procedure, catheter/device intact; 05/20/22; 1416 05/19/22 0808 by Abelardo Mercado, 05/20/22 1416 by Marla Dumont LNA Arterial Line 05/19/22; 0808; radi al artery, left; 20 gauge; Anatomical Landmarks; continuous blood pressure monitoring; Maricarmen Jessica; 05/19/22; 1245 05/19/22 0808 by Abelardo Mercado, 05/19/22 1245 by Marsha Graham RN documented in this encounter Social History [...] OR Notes * Anesthesia Postprocedure Evaluation - Abelardo Mercado DO - 05/19/2022 11:04 AM EDT Department of Anesthesiology Post-procedure Note Patient: Malik Machado Procedure Summary Date: 05/19/22 Room / Location: [facility] OR [facility] MAIN OR Anesthesia Start: 728 Anesthesia Stop: 1102 Procedures: ARTHRODESIS, ANT INTERBODY,DECOMPRESSION; CERVICAL BELOW C2 (WRVU 25) (Bilateral Neck) ARTHRODESIS ANT INTERBDY CERVCL BELOW C2 EA ADDL INTRSPACE (WRVU 6.5) (Bilateral Neck) ANT. SPINAL INSTRUMENTATION, 2-3 VERTEBRA, SEGMENTED (WRVU 11.94) (Bilateral Neck) ALLOGRAFT FOR SPINE SURGERY ONLY; STRUCTUAL (WRVU 1.81) (Bilateral ) MODIFIER GLOBUS PROVIDENCE (Bilateral ) MODIFIER CORNERSTONE (Bilateral ) MODIFIER C4 (Bilateral ) MODIFIER C5 (Bilateral ) MODIFIER C6 (Bilateral ) Diagnosis: Radiculopathy of cervical region (Cervical radiculopathy) Surgeons: Rey Clayton MD Responsible Provider: Maricarmen Jessica MD Anesthesia Type: general ASA Status: 3 All Anesthesia Providers: Anesthesiologist: Maricarmen Jessica MD Paper Slitter: Abelardo Mercado DO Vitals Value Taken Time BP 180/97 05/19/22 1100 Temp Pulse 66 05/19/22 1103 Resp 14 05/19/22 1103 SpO2 99 % 05/19/22 1103 Pain Level Vitals shown include unvalidated device data. Patient Location: PACU/LAP Level of Consciousness: Conscious but Sleepy Pain Management: Pain Being Addressed PONV: None Cardiovascular Status: At Baseline and Hypertension (received treatment) Respiratory Status: At Baseline and Supplemental O2 (NC or FM) Postoperative Fluid Status: Intravascular EUvolemia Possible Anesthetic Complications: NONE apparent at time of evaluation Final Primary Anesthesia Type: General (The anesthetic type performed was the same as planned.) Comments: Abelardo Mercado DO Custodial Worker Pg [phone] * Anesthesia Postprocedure Evaluation - Armando Jones MD - 05/19/2022 11:03 AM EDT Department of Anesthesiology Post-procedure Note Patient: Malik Machado Procedure Summary Date: 05/19/22 Room / Location: [facility] OR [facility] MAIN OR Anesthesia Start: 728 Anesthesia Stop: Procedures: ARTHRODESIS, ANT INTERBODY,DECOMPRESSION; CERVICAL BELOW C2 (WRVU 25) (Bilateral Neck) ARTHRODESIS ANT INTERBDY CERVCL BELOW C2 EA ADDL INTRSPACE (WRVU 6.5) (Bilateral Neck) ANT. SPINAL INSTRUMENTATION, 2-3 VERTEBRA, SEGMENTED (WRVU 11.94) (Bilateral Neck) ALLOGRAFT FOR SPINE SURGERY ONLY; STRUCTUAL (WRVU 1.81) (Bilateral ) MODIFIER GLOBUS PROVIDENCE (Bilateral ) MODIFIER CORNERSTONE (Bilateral ) MODIFIER C4 (Bilateral ) MODIFIER C5 (Bilateral ) MODIFIER C6 (Bilateral ) Diagnosis: Radiculopathy of cervical region (Cervical radiculopathy) Surgeons: Rey Clayton MD Responsible Provider: Maricarmen Jessica MD Anesthesia Type: general ASA Status: 3 All Anesthesia Providers: Anesthesiologist: Maricarmen Jessica MD Paper Slitter: Abelardo Mercado DO Vitals Value Taken Time BP 180/97 05/19/22 1100 Temp Pulse 65 05/19/22 1102 Resp 11 05/19/22 1102 SpO2 99 % 05/19/22 1102 Pain Level Vitals shown include unvalidated device data. Patient Location: PACU/[facility] Level of Consciousness: Awake and Alert Pain Management: Satisfactory Analgesia PONV: None Cardiovascular Status: At Baseline and Hemodynamically Stable Respiratory Status: At Baseline and Supplemental O2 (NC or FM) Postoperative Fluid Status: Intravascular EUvolemia Possible Anesthetic Complications: NONE apparent at time of evaluation Final Primary Anesthesia Type: General (The anesthetic type performed was the same as planned.) Comments: Conversing in recovery area. Armando Jones MD * Anesthesia Preprocedure Evaluation - Maricarmen Jessica MD - 05/18/2022 5:06 PM EDT Pre-Anesthesia Evaluation for: Malik Machado a 72 y.o. male. Procedure(s): ARTHRODESIS, ANT INTERBODY,DECOMPRESSION; CERVICAL BELOW C2 (WRVU 25) ARTHRODESIS ANT INTERBDY CERVCL BELOW C2 EA ADDL INTRSPACE (WRVU 6.5) ANT. SPINAL INSTRUMENTATION, 2-3 VERTEBRA, SEGMENTED (WRVU 11.94) ALLOGRAFT FOR SPINE SURGERY ONLY; STRUCTUAL (WRVU 1.81) MODIFIER GLOBUS PROVIDENCE MODIFIER CORNERSTONE MODIFIER C4 MODIFIER C5 MODIFIER C6 Patient Active Problem List Diagnosis Date Noted ??? A-fib 08/13/2011 ??? Hypertension 08/13/2011 ??? Thrombocytopenia 04/28/2022 ??? Radiculopathy of cervical region 05/30/2021 ??? Trigger middle finger of right hand 05/16/2021 ??? s/p right long finger A1 kayla release for trigger finger 05/15/21 (Dr Duong) 05/15/2021 ??? Radiculopathy of cervical region 03/23/2021 ??? Neck pain 12/05/2020 ??? Numbness and tingling in left arm 12/05/2020 ??? History of loop recorder 11/17/2019 ??? Postoperative anemia due to acute [...] medication ??? Irregular heart beat afib ??? FPC current use of opiate analgesic oxycodone, prescribed [...] CURVED Procedure Date: 01/14/2010 ??? JOINT REPLACEMENT [id number] ??? PACEMAKER IMPLANT loop recorder ? ? PRO DIAGNOSTIC BONE MARROW BIOPSIES & ASPIRATIONS N/A 04/22/2022 ([facility]) BONE MARROW BIOPSY AND ASPIRATION; DIAGNOSTIC performed by Ellis Guy MD at [facility] OSC ??? PRO INCISE FINGER TENDON SHEATH Right 05/15/2021 TENDON SHEATH INCISION (TRIGGER FINGER) (WRVU 3.11) performed by Jovan Duong MD at [facility] MAIN OR ??? PRO REVISE KNEE JOINT REPLACE, ALL PARTS Right 11/15/2019 @TOTAL KNEE REVISION ARTHROPLASTY, COMPLETE (WRVU 27.11) performed by Sukhjinder Jauregui MD at [facility] MAIN OR ??? XR JOINT ASPIRATION - LARGE JOINT RIGHT Right 01/02/2019 XR Fluoro Guided Joint Aspiration Large Right 01/02/2019 [facility] RAD XRAY Social History Tobacco Use ??? Smoking status: Former Smoker Packs/day: 2.00 Years: 16.00 Pack years: 32.00 Types: Cigarettes Quit date: 11/09/1982 Years since quittin.5 ??? Smokeless tobacco: Never Used Substance Use Topics ??? Alcohol use: No [...] Flecainide Other (See Comments) Adverse effect caused MI and QRS prolongation Other reaction(s): Other (See Comments) Adverse effect caused MI and QRS prolongation Other reaction(s): Other (See Comment) Medications: MAR and/or home medications have been reviewed. Physical Exam: Preprocedure Vitals Current as of 05/18/22 1706 No BP, pulse, respiration, SpO2, or temperature recorded. Height: 180.3 cm (5' 11) (01/05/22) Weight: 81.2 kg (179 lb) (01/05/22) BMI: 24.96 IBW: 75.3 kg (165 lb 14.8 oz) Airway Assessment: Mallampati: III TM distance: <3 FB Neck ROM: limited Cardiovascular Assessment: Rhythm: irregular Pulmonary Assessment: unlabored breathing Dental Assessment: Misc Assessment: IV access: Peripheral line Last Filed Perioperative Cognitive Screening Value Time User 4AT TOTAL Score: 0 05/15/2021 1:15 PM Grace Nuñez RN Anesthesia Plan: ASA 3 general, Malik Machado is a 72 y.o. male (body mass index is unknown because there is no height or weight on file. ) with Radiculopathy of cervical region presenting for Arthrodesis and spine instrumentation. PMHx: Chronic back pain (taking oxycodone 15mg PRN), s/p multiple lumbar surgeries, thrombocytopenia (80s-120), HTN (verapamil, metoprolol), HLD (simvastatin), GERD (well-controlled; omeprazole), RBBB and paroxysmal A-fib s/p ablation in 2012 and 2016; on metoprolol and Eliquis (will confirm last dose), GERD Meds: Valcyclovir, lamotrigine, levothyroxine, dexamethasone, fluticasone, metoprolol, omeprazole, oxycodone, pregabalin, sumatriptan, tamsulosin, verapamil, Xarelto Alg: Zolpidem, atorvastatin, Elavil, Flecainide NPO adequate. No other recent illnesses/fevers. Activity tolerance: METS - ?. Anesthesia Hx: Past airway: Prior GA in 2017 Grade 2 view with Martinez 2 and easy mask. 7.5mm, Grade 2 view (w/ cricoid pressure) No prior issues with anesthesia. Labs (reviewed): plt 120, hgb 15.5 Cardiac Hx: EKG 06/2021: Sinus Andres with RBBB Stress Test (Pharm) 07/2020: No ischemia or scar ECHO 11/2016: LV chamber size and function normal. EF 58%. RV normal size and function. Plan is for GA with ETT, standard ASA monitors, and adequate venous access (x1). Abelardo Mercado DO 05/18/2022 Informed Consent: Anesthesia Screening documented in this encounter Plan of Treatment Upcoming Encounters Date Type Department Care Team (Late st Contact Info) Description 08/18/2024 11:00 AM EDT Hospital Encounter Non[place] [address] Arrived 02/22/2025 1:30 PM EDT Appointment [place]ology [place] [address] 02/22/2025 2:30 PM EDT Office Visit Hematology [place] [address] Ellis Childers MD [facility] [place] [address] Felicita Landa APRN [facility] [place] [address] documented as of this encounter Visit Diagnoses Not on filedocumented in this encounter Administered Medications Inactive Administered Medications - up to 3 most recent administrations Medication Order MAR Action Action Date Dose Rate Site ceFAZolin (Ancef) 2 g vial attach to sodium chloride 0.9% 100 mL Mini-Bag Plus 2 g, Intravenous, EVERY 3 HOURS, 1 dose, First dose on Wed05/19/22 at 0645, Administer over 30 Minutes, Re-dose after 3 hours., Intra-Operative (Intra-Procedure), Indication for (Active or Suspected): Prophylaxis New Bag 05/19/2022 7:57 AM EDT 2 g dexAMETHasone (Decadron) injection Intravenous, PRN, Starting on Wed05/19/22 at 0817, Until Wed05/19/22 at 1103, Anesthesia Intra-op, Routine Given 05/19/2022 8:17 AM EDT 8 mg dexmedeTOMIDine (Precedex) (4 mcg/mL) bolus injection (Anesthsia) Intravenous, PRN, Starting on Wed05/19/22 at 0839, Until Wed05/19/22 at 1103, Anesthesia Intra-op, Routine Given 05/19/2022 8:39 AM EDT 8 mcg fentaNYL (pf) (50 mcg/mL) multi-dose injection Intravenous, PRN, Starting on Wed05/19/22 at 0734, Until Wed05/19/22 at 1103, Anesthesia Intra-op, Routine Given 05/19/2022 8:44 AM EDT 50 mcg Given 05/19/2022 7:34 AM EDT 50 mcg HYDROmorphone (Dilaudid) (2 mg/mL) multi-dose injection solution Intravenous, PRN, Starting on Wed05/19/22 at 0849, Until Wed05/19/22 at 1103, Anesthesia Intra-op, Routine Given 05/19/2022 10:16 AM EDT 0.2 mg Given 05/19/2022 10:03 AM EDT 0.2 mg Given 05/19/2022 9:34 AM EDT 0.2 mg labetaloL (Normodyne) (5 mg/mL) multi-dose injection Intravenous, PRN, Starting on Wed05/19/22 at 0842, Until Wed05/19/22 at 1103, Anesthesia Intra-op, Routine Given 05/19/2022 8:42 AM EDT 5 mg lactated ringers infusion Intravenous, CONTINUOUS PRN, Starting on Wed05/19/22 at 0725, Until Wed05/19/22 at 1103, Anesthesia Intra-op New Bag 05/19/2022 7:25 AM EDT lactated ringers infusion Intravenous, CONTINUOUS PRN, Starting on Wed05/19/22 at 0800, Until Wed05/19/22 at 1103, Anesthesia Intra-op New Bag 05/19/2022 8:00 AM EDT midazolam (pf) (Versed) (1 mg/mL) multi-dose injection Intravenous, PRN, Starting on Wed05/19/22 at 0727, Until Wed05/19/22 at 1103, Anesthesia Intra-op, Routine Given 05/19/2022 7:27 AM EDT 2 mg ondansetron (pf) (Zofran) (2 mg/mL) injection Intravenous, PRN, Starting on Wed05/19/22 at 1016, Until Wed05/19/22 at 1103, Anesthesia Intra-op, Routine Given 05/19/2022 10:16 AM EDT 4 mg propofoL (Diprivan) (10 mg/mL) infusion Intravenous, CONTINUOUS PRN, Starting on Wed05/19/22 at 0739, Until Wed05/19/22 at 1103, Anesthesia Intra-op, Routine Rate/Dose Change 05/19/2022 9:08 AM EDT 50 mcg/kg/min 23.94 mL/hr Rate/Dose Change 05/19/2022 8:47 AM EDT 25 mcg/kg/min 11.9 7 mL/hr New Bag 05/19/2022 7:39 AM EDT 50 mcg/kg/min 23.94 mL/h r propofoL (Diprivan) 10 mg/mL bolus injection (Anesthesia) Intravenous, PRN, Starting on Wed05/19/22 at 0733, Until Wed05/19/22 at 1103, Anesthesia Intra-op Given 05/19/2022 7:35 AM EDT 100 mg Given 05/19/2022 7:33 AM EDT 100 mg rocuronium (Zemuron) (10 mg/mL) multi-dose injection Intravenous, PRN, Starting on Wed05/19/22 at 0815, Until Wed05/19/22 at 1103, Anesthesia Intra-op, Routine Given 05/19/2022 9:52 AM EDT 20 mg Given 05/19/2022 9:19 AM EDT 20 mg Given 05/19/2022 8:42 AM EDT 20 mg sodium chloride 0.9% infusion Intravenous, CONTINUOUS PRN, Starting on Wed05/19/22 at 0800, Until Wed05/19/22 at 1103, Anesthesia Intra-op New Bag 05/19/2022 8:00 AM EDT sugammadex (Bridion) 100 mg/mL injection Intravenous, PRN, Starting on Wed05/19/22 at 1029, Until Wed05/19/22 at 1103, Anesthesia Intra-op, Routine Given 05/19/2022 10:32 AM EDT 200 mg Given 05/19/2022 10:29 AM EDT 200 mg documented in this encounter Care Teams Architectural Technician Relationship Specialty Start Date End Date Radha Mckeon MD [address] [place] [address] PCP - General 09/23/10 documented as of this encounter
--- OUTSIDE RECORDS SUMMARY | 2024-07-24 17:23 | XMS_ITS | Encounter Summary ---
Author Organization [facility] [place] [address] Care Team Providers Care Clinical Advisor Name Role Phone Radha Mckeon MD Primary Care Provider [phone] Encounter Details Date Type Department Care Team (Late st Contact Info) Description 05/07/2022 Orders Only Hematology [place] [id number] María Landa APRN [facility] HEMATOLOGY [place] [address] Thrombocytopenia Social History Tobacco Use Types Packs/Day [...] as of this encounter Miscellaneous Notes * Addendum Note - María Landa APRN - 05/07/2022 8:00 PM EDTAddended by: MARÍA LANDA on: 05/07/2022 08:08 PM Modules accepted: Orders documented in this encounter Plan of Treatment Upcoming Encounters Date Type Department Care Team (Late st Contact Info) Description 08/18/2024 11:00 AM EDT Hospital Encounter Non[place] [address] Arrived 02/22/2025 1:30 PM EDT Appointment Hematology [place] [address] 02/22/2025 2:30 PM EDT Office Visit Hematology [place] [phone] Ellis Childers MD [facility] [place] [address] María Landa APRN [facility] HEMATOLOGY [place] [address] documented as of this encounter Visit Diagnoses Diagnosis Thrombocytopenia Thrombocytopenia, unspecified documented in this encounter Care Teams Clinical Advisor Relationship Specialty Start Date End Date Radha Mckeon MD [address] [place] [address] PCP - General 09/23/10 documented as of this encounter
--- OUTSIDE RECORDS SUMMARY | 2024-07-24 17:23 | XMS_ITS | Encounter Summary ---
Author Organization [facility] [place] [address] Care Team Providers Care Sound Effects Person Name Role Phone Radha Mckeon MD Primary Care Provider [phone] Encounter Details Date Type Department Care Team (Late st Contact Info) Description 04/22/2022 Orders Only Hematology [place] [phone] Shruthi Wilder APRN [facility] [place] [address] Social History Tobacco Use Types Packs/Day Years [...] EDT Hospital Encounter Non-Invasive Cardiology Lab [address] Arrived 02/22/2025 1:30 PM EDT Appointment Hematology and Oncology at [place] [address] 02/22/2025 2:30 PM EDT Office Visit Hematology and Oncology at [place] [address] Ellis Childers MD [facility] [place] [address] Felicita Landa APRN [facility] [place] [address] documented as of this encounter Visit Diagnoses Not on filedocumented in this encounter Care Teams Sound Effects Person Relationship Specialty Start Date End Date Radha Mckeon MD [address] [place] [address] PCP - General 09/23/10 documented as of this encounter
--- OUTSIDE RECORDS SUMMARY | 2024-07-24 17:23 | XMS_ITS | Encounter Summary ---
Author Organization [facility] [place] [address] Care Team Providers Care Airport Clerk Name Role Phone Radha Mckeon MD Primary Care Provider [phone] Encounter Details Date Type Department Care Team (Latest Contact Info) Description 04/28/2022 10:09 AM EDT - 04/28/2022 10:10 AM EDT Hospital Encounter Hematology [place] [address] Thrombocytopenia Discharge Disposition: Home Social History Tobacco [...] in a retirement (including now)? No 04/01/2022 Sex and Gender Information Value Date Recorded Sex Assigned at Not on file Gender Identity Not on file Sexual Orientation Not on file documented as of this encounter Last Filed Vital Signs Vital Sign Reading Time Taken Comments Blood Pressure 135/77 04/28/2022 5:07 PM EDT Pulse 61 04/28/2022 5:07 PM EDT Temperature 36.5 ??C (97.7 ??F) 04/28/2022 5:07 PM ED T Respiratory Rate 20 04/28/2022 5:07 PM EDT Oxygen Saturation 98% 04/28/2022 5:07 PM EDT Inhaled Oxygen Concentration - - Weight - - Height - - Body Mass Index - - documented in this encounter Medications at Time [...] QD 04/23/2020 fluticasone propionate (FLONASE) 50 mcg/actuation [place], Suspension INSTILL 1SPRAY IN EACH NOSTRIL TWICE [...] as of this encounter Progress Notes * Candace Smith RN - 04/28/2022 4:00 PM EDT Patient is here for transfusion of 1 unit of platelets. And post platelet count Prior to transfusion initiation, RN educated patient regarding signs and symptoms of a transfusion reaction as follows: Fever, chills/rigors, nausea/vomiting, hypotension, bloody or dark urine, cough, dyspnea, SOB, wheezing, hypoxemia, decreased O2 saturations, back or flank pain, headache, infusion site pain. Directed patient to alert staff right away if beginning to experience any of these signs/symptoms. Patient verbalized understanding. Patient tolerated transfusion well with no signs or symptoms of complication. Report given to Bruce De León RN RN shared [facility] Information for Transfusion Recipients (Form [id number]) with patient via AVS. RN directed them to call clinic or hospital if any listed signs/symptoms develop within the next 24 hours, or go to the emergency department if more urgent care is needed. They verbalized understanding. Patient Name: Malik Machado Patient Age: 71 y.o. Birthdate: 1950 Admit date: 04/28/2022 Attending Physician: No att. providers found * Dilcia Chino RN - 04/28/2022 11:55 AM EDT Patient Name: Malik Machado Patient Age: 71 y.o. Birthdate: 1950 Admit date: 04/28/2022 Attending Physician: No att. providers found Patient's platelets 110 with today's labs. No orders for transfusion, Shruthi Wilder CREDIT CONTROL ADMINISTRATOR, Vilma Landa CREDIT CONTROL ADMINISTRATOR and Dr Guy made aware. Per Shruthi Wilder, CREDIT CONTROL ADMINISTRATOR healthcare team will contact patient re: future plans for transfusion. documented in this encounter Miscellaneous Notes * Addendum Note - Candace Smith RN - 04/28/2022 5:28 PM EDTEncounter addended by: Candace Smith RN on: 04/28/2022 5:28 PM Actions taken: Flowsheet accepted, LDA properties accepted * Addendum Note - Candace Smith RN - 04/28/2022 5:18 PM EDTEncounter addended by: Candace Smith RN on: 04/28/2022 5:18 PM Actions taken: Clinical Note Signed, MAR administration accepted, Flowsheet accepted * Addendum Note - Candace Smith RN - 04/28/2022 4:44 PM EDTEncounter addended by: Candace Smith RN on: 04/28/2022 4:44 PM Actions taken: MAR administration accepted, Flowsheet accepted * Addendum Note - Candace Smith RN - 04/28/2022 4:10 PM EDTEncounter addended by: Candace Smith RN on: 04/28/2022 4:10 PM Actions taken: Child order released for a procedure order, MAR administration accepted, Allergies reviewed, Medication List reviewed, Pend clinical note, Charge Capture section accepted, Clinical Note Signed, Flowsheet accepted * Addendum Note - Candace Smith RN - 04/28/2022 4:03 PM EDTEncounter addended by: Candace Smith RN on: 04/28/2022 4:03 PM Actions taken: Flowsheet accepted, MAR administration accepted, Allergies reviewed, Medication Listreviewed, Pend clinical note * Addendum Note - Candace Smith RN - 04/28/2022 3:36 PM EDTEncounter addended by: Candace Smith RN on: 04/28/2022 3:36 PM Actions taken: Child order released for a procedure order, Flowsheet accepted * Addendum Note - Dilcia Chino RN - 04/28/2022 3:36 PM EDTEncounter addended by: Dilcia Chino RN on: 04/28/2022 3:36 PM Actions taken: Order list changed * Addendum Note - Bell Joseph RN - 04/28/2022 3:18 PM EDTEncounter addended by: Bell Joseph RN on: 04/28/2022 3:18 PM Actions taken: LDA properties accepted, Flowsheet accepted * Addendum Note - Dilcia Chino RN - 04/28/2022 3:07 PM EDTEncounter addended by: Dilcia Chino RN on: 04/28/2022 3:07 PM Actions taken: Diagnosis association updated, Order list changed documented in this encounter Plan of Treatment Upcoming Encounters Date Type Department Care Team (Late st Contact Info) Description 08/18/2024 11:00 AM EDT Hospital Encounter [place] [address] Arrived 02/22/2025 1:30 PM EDT Appointment Hematology [place] [address] 02/22/2025 2:30 PM EDT Office Visit Hematology [place] [address] Ellis Childers MD [facility] [address] [place] [address] Felicita Landa APRN [facility] [address] [place] [address] documented as of this encounter Procedures Procedure Name Priority Date/Time Associated Diagnosis Comments HC PLATELET COUNT Routine 04/28/2022 5:4 6 PM EDT TRANSFUSE 1 UNIT PLATELET PHERESIS Routine 04/28/2022 3:53 PM EDT Thrombocytopenia PREPARE PLATELETS, APHERESIS Routine 04/28/2022 3:10 PM EDT Thrombocytopenia LAB SCAN 04/28/2022 12:00 AM EDT documented in this encounter Results * (ABNORMAL) Platelet count (04/28/2022 5:46 PM EDT) Platelet 120(L) 145 - 357 x10(3)/mc L [facility] Immature Plt % 4.1 0.0 - 7.4 % [facility] Comment: Limitation of the Immature Platelet Fraction (IPF)-May be less reliable when the platelet count is less than 13y302/uL due to statistical imprecision. The IPF value provides an assessment of the Bone Marrow production status. ??It is useful in differentiating Thrombocytopenia caused by platelet destruction/consumption versus decreased production. It also helps to determine the imminent release of platelets and can be therefore a helpful parameter in Chemotherapy and Bone marrow transplant patients. ELEVATED IPF value: ?? When the bone marrow is in a state of over production such as when increased destruction and consumption are the underlying issue. ?? When the marrow is recovering post chemotherapy or bone marrow transplant. LOW to NORMAL IPF value: ?? When the bone marrow in not responding and is in a decreased state of production. References: [employer] The Clinical Value of the Immature Platelet Fraction (IPF) in Cell Recovery Document Number [id number] 04/2011 [employer] The Role of the Immature Platelet Fraction (IPF) in the Differential Diagnosis of Thrombocytopenia, Document [id number] V05 P003/14 Blood 04/28/2022 5:46 PM EDT 04/28/2022 5:46 PM EDT Narrative Resulting Agency Comment Spec In Lab Ellis Childers MD HEMATOLOGY ORDER DELICIA Performing Organization Address City/[facility]/ZIP Co de Phone Number [facility] [place] [address] * Transfuse 1 unit platelets, apheresis (04/28/2022 5:12 PM EDT) Ellis Childers MD NURSING TREATMEN T ORDERABLES - BLOOD ADMIN * Transfuse 1 unit platelets, apheresis (04/28/2022 5:12 PM EDT) Ellis Childers MD NURSING TREATMEN T ORDERABLES - BLOOD ADMIN * Prepare Platelets, Apheresis (04/28/2022 3:10 PM EDT) Dispensed? Yes [facility] Blood 04/28/2022 3:10 PM EDT 04/28/2022 3:05 PM EDT Narrative Resulting Agency Comment Spec In Lab Ellis Childers MD BLOOD BANK PRODU CT ORDERABLES Performing Organization Address [facility]/ZIP Co de Phone Number [facility] [place] [address] * SCAN DOC: LAB (04/28/2022 12:00 AM EDT) Unknown MEDIA MGR SCAN EXT O RDR/RSLT documented in this encounter Visit Diagnoses Diagnosis Thrombocytopenia Thrombocytopenia, unspecified documented in this encounter Care Teams Airport Clerk Relationship Specialty Start Date End Date Radha Mckeon MD [address] [place] [address] PCP - General 09/23/10 documented as of this encounter
--- OUTSIDE RECORDS SUMMARY | 2024-07-24 17:23 | XMS_ITS | Encounter Summary ---
Author Organization [facility] [place] [address] Care Team Providers Care Wine Merchant Name Role Phone Radha Mckeon MD Primary Care Provider [phone] Encounter Details Date Type Department Care Team (Late st Contact Info) Description 04/28/2022 Orders Only Hematology [place] [address] Ellis Childers MD [facility] [address] [place] [address] Social History Tobacco Use Types Packs/Day Years [...] encounter Miscellaneous Notes * Addendum Note - Ellis Guy MD - 04/28/2022 1:57 PM EDTAddended by: ELLIS GUY on: 04/28/2022 03:21 PM Modules accepted: Orders documented in this encounter Plan of Treatment Upcoming Encounters Date Type Department Care Team (Late st Contact Info) Description 08/18/2024 11:00 AM EDT Hospital Encounter Non-[place] [address] Arrived 02/22/2025 1:30 PM EDT Appointment Hematology [place] [address] 02/22/2025 2:30 PM EDT Office Visit Hematology [place] [address] Ellis Childers MD [facility] [place] [address] Felicita Landa APRN [facility] [place] [address] documented as of this encounter Visit Diagnoses Not on filedocumented in this encounter Care Teams Wine Merchant Relationship Specialty Start Date End Date Radha Mckeon MD [address] [place] [address] PCP - General 09/23/10 documented as of this encounter
--- OUTSIDE RECORDS SUMMARY | 2024-07-24 17:23 | XMS_ITS | Encounter Summary ---
Author Organization [facility] [address] Care Team Providers Care Assurance Services Manager Health Care Name Role Phone Radha Mckeon MD Primary Care Provider [phone] Encounter Details Date Type Department Care Team (Late st Contact Info) Description 05/05/2022 Telephone [place] [address] Maricarmen Mcgee, RN Social History [...] Telephone Encounter - Maricarmen Mcgee RN - 05/05/2022 2:11 PM EDT Patient is schedued for ACDF with Dr bird 05/19/22. Reviewed anticipated start time. Given [place]; Pt expressed potential plans t come the night before- Provided pt with [facility] # in the event he s on the road p 2pm the day prior to surgery/ Provided pt with CPT codes fr pending surgery as requested., Reviewed with pt the need and clearance to hld his Xarato for 3 full days pror to procedure. Pt understands he should take 15 as scheduled then hold. Reviewed collar use; tips for eating in a collar. Mobilization and relaxation post op; droppng shoulders; not assuming a guarded posture, sleeping in collar- ice use to incisional area and intrascapular area. Reviewed ambulation postop; acitivyt restrictions. Discussed work plans; Pt understands he will likely be out for 2 months; possibly longer. Pt Reported some problems w STD; stating his insurance or workplace are correlating this cervical surgery to his prior work related external lumbar fusions. Explained th they are unrelated. Suggested he ask them to fax spine nursing the STD paperwork and we would document r/t this surgery. Informed pt that Iwould ask Kareem Mckeon to call him and work if needed; to help navigate this denial. 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 explained when there is question or concern we would request a WRAP for formal test and measures to justify readiness to return or justify need for extension or OW status. Pt inquired about length of stay, VNA or npt rehab post discharge. Explained that it is very unusual for pt to need discharge to a rehab facility following this surgery. That depending on home support; VNA might be indicated- that Kareem had previously called him to discuss this. Pt is currently on terminal operator pain mgmt through Dr Radha Mckeon for chroninc pain r/t to his prior multiple lumbar fusions elsewhere. Pt reports valentino had a terrific relationship with Dr Genny rutherford who assisted in making recommendations wi for pain mgmt. Informed pt that pain mgmt following the cervical spine surgery s typically much easier to manage and pain meds are required for a shorter period of time. Explained that Dr Bird would be providing postoperative pain mgmt as typical following this surgery and that we would be working closely with Dr Mckeon, and transitioning him back to Dr Sellers as we would not over prescribe given his chronic opioid use; nor would we expect that his chronic needs r/t to hs lumbar spine will be resolved with cervical spine surgery. Prior communication has been has with hs PCP's office See 01/05/22 phone note re plan for transition to PCP after ~ 3-4 wks postop. Pt has a pending H&P; reinforced that this is necessary as it needs to be updated from when he was initially scheduled for surgery- pt verbalized understanding. Answered all of pt's questions as presented. Pt understands he can call if other questions arise. IB message sent to Kareem requesting she call and help navigate denial of STD. documented in this encounter Plan of Treatment Upcoming Encounters Date Type Department Care Team (Abram st Contact Info) Description 08/18/2024 11:00 AM EDT Hospital Encounter Non-[place] [address] Arrived 02/22/2025 1:30 PM EDT Appointment H[place]ology [place] [address] 02/22/2025 2:30 PM EDT Office Visit Hematology [place] [address] Ellis Childers MD [facility] [place] [address] Felicita Landa APRN [facility] [place] [address] documented as of this encounter Visit Diagnoses Not on filedocumented in this encounter Care Teams Assurance Services Manager Health Care Relationship Specialty Start Date End Date Radha Mckeon MD [address] [place] [address] PCP - General 09/23/10 documented as of this encounter
--- OUTSIDE RECORDS SUMMARY | 2024-07-24 17:23 | XMS_ITS | Encounter Summary ---
Author Organization [facility] [place] [address] Care Team Providers Care Records Management Assistant Name Role Phone Radha Mckeon MD Primary Care Provider [phone] Encounter Details Date Type Department Care Team (Latest Contact Info) Description 04/22/2022 8:39 AM EDT - 04/22/2022 11:09 AM EDT Hospital Encounter [place] [address] Ellis Childers MD [facility] [address] [place] [address] Discharge Disposition: Home Social History Tobacco Use [...] Sign Reading Time Taken Comments Blood Pressure 155/109 04/22/2022 10:27 AM EDT pt moving Pulse 67 04/22/2022 10:27 AM EDT Temperature 37.6 ??C (99.7 ??F) 04/22/2022 8:58 AM ED T Respiratory Rate 20 04/22/2022 10:27 AM EDT Oxygen Saturation 97% 04/22/2022 10:27 AM EDT Inhaled Oxygen Concentration - - [...] 5pm or on a weekend: Call the [facility] bush hog operator at and ask for the physician instrumentation and controls technician covering for your doctor. Instructions following sedation [...] drainage occurs, please contact [place] [address] [email or web address] [facility], [facility] [place] documented in this encounter Medications [...] 04/23/2020 fluticasone propionate (FLONASE) 50 mcg/actuation [place], Suspension INSTILL 1SPRAY IN EACH NOSTRIL TWICE [...] have a ride home on [facility]. Patient spoke with Amanda about this yesterday and is okay having the procedure without sedation today. * Harjit Baker RN - 04/22/2022 8:47 AM EDT Patient in ED last night for bleeding concerns, plts 102. Alondra NET DEVELOPMENT MANAGER made aware, continue to proceed for BMBX [...] proceed with planned procedure. Shruthi Mayorga, MSN, CARDIAC CATH LAB MANAGER Nurse Practitioner Section of Hematology/Oncology [facility] Office phone: documented in this encounter Procedure Notes * Shruthi Mayorga APRN - 04/22/2022 9:30 AM EDTProcedure(s): HC BONE MARROW ASPIRATION PERFORMED W BIOPSY THROUGH BX INCISION Pre-Procedure Diagnose(s): Thrombocytopenia BONE MARROW BIOPSY AND ASPIRATION PROCEDURE NOTE Date/Time of Procedure: April 22, 2022 at 10:20am Proceduralist: SHRUTHI MAYORGA APRN, RN, MS, BRINE MIXER OPERATOR DIAGNOSIS: Thrombocytopenia Pre-Procedure: (x) Consent signed and [...] drive him home after) Shruthi Mayorga, MSN, CARDIAC CATH LAB MANAGER Nurse Practitioner Section of Hematology/Oncology [facility] Office phone: documented in this encounter Plan of Treatment Upcoming Encounters Date Type Department Care Team (Late st Contact Info) Description 08/18/2024 11:00 AM EDT Hospital Encounter [place] [address] Arrived 02/22/2025 1:30 PM EDT Appointment Hematology [place] [address] 02/22/2025 2:30 PM EDT Office Visit Hematology [place] [address] Ellis Childers MD [facility] [place] [address] Felicita Landa APRN [facility] [place] [address] documented as of this encounter Procedures Procedure Name Priority Date/Time Associated Diagnosis Comments BONE MARROW FINAL REPORT Routine 04/22/2022 10:20 AM EDT Diagnostic Bone Marrow Biopsies & Aspirations ([id number]) 04/22/2022 9:49 AM EDT thrombocytopenia CHROMO REPORT ACQUIRED Routine 04/22/2022 8:41 AM EDT IRON STAIN, BONE MARROW Routine 04/22/2022 8:41 AM EDT BONE MARROW PANEL ([facility]/CGP/APD) Routine 04/22/2022 8:41 AM EDT ([facility]) BONE MARROW BIOPSY AND ASPIRATION; DIAGNOSTIC Routine 04/22/2022 8:40 AM EDT documented in this encounter Results * Bone Marrow Final Report (04/22/2022 10:20 AM EDT) Final Diagnosis [id number] ? Location: [facility] The signing pathologist has [...] MD Verified: ??04/23/2022 23:47 ??Hematopathologist Performed at: ??-[facility] Dept. of Pathology, [place], [place] DISCUSSION The aspirate smears were particulate [...] ring sideroblasts. DIFFERENTIAL Band/Seg 45%; Lymph 8%; [place] 2%; Eos 4%; Baso 0%; Metamyelocyte 5%; [...] labeled A1-A2. ??pps 04/23/2022 11:47 PM EDT [facility] BONE MARROW STRUCTURE / Unknown 04/22/2022 10:20 AM EDT 04/22/2022 10:20 AM EDT Ellis Childers MD PATHOLOGY/CYTOLO GY ORDERABLES [facility] [place] [address] * chromo report acquired (04/22/2022 8:41 AM EDT) Cytogenetics Acquired Report Final Report ?[id number] Specimen Type: Bone Marrow Specimen Condition: ~2.0mL, adequate Collection Date/Time: 04/22/2022 08:41 Received Date/Time: 04/22/2022 12:37 Indication: ??Thrombocytopen ia ---Results--- Please see the chromosome analysis scanned report in eD-H corresponding to this bone marrow specimen. This report was completed by [facility] and is located in 'Chart Review' under the Media tab. The documents are titled External Genetic Study. ---Karyotype--- See comments. ---Preparation-- - Culture Type: Other FISH Method: N/A ---Comments--- The specimen was referred to [facility] ([place], [place], Tel: ) for cytogenetic analysis. ---Disclaimer--- Please note that this is not a patient lab result and does not have an interpretative component. It is only provided to indicate the location of the final report in the EMR for this individual, which has the official interpretation of this test result. 04.30.22 (Electronic Signature) Verified By: Steve Olivas [facility] 04/22/2022 8:41 AM EDT 04/22/2022 12:37 PM EDT Ellis Childers MD HEMATOLOGY ORDER DELICIA Performing Organization Address [facility] [[email or web address]] Co de Phone Number [facility] [address] * Iron Stain, Bone Marrow (04/22/2022 8:41 AM EDT) Bone Marrow Iron Stain See Comment [facility] Comment:See Bone Marrow Repo rt [id number] under Hematopathology Reports. Bone Marrow 04/22/2022 8:41 AM EDT 04/22/2022 10:40 AM EDT Narrative Resulting Agency Comment Spec In Lab Ellis Childers MD HEMATOLOGY ORDER DELICIA Performing Organization Address [facility] [[email or web address]] Co de Phone Number [facility] [address] documented in this encounter Visit Diagnoses Not [...] Routine documented in this encounter Care Teams Records Management Assistant Relationship Specialty Start Date End Date Radha Mckeon MD [address] [place] [address] PCP - General 09/23/10 documented as of this encounter
--- OUTSIDE RECORDS SUMMARY | 2024-07-24 17:23 | XMS_ITS | Encounter Summary ---
Author Organization [facility] [place] [address] Care Team Providers Care Taxation Accountant Name Role Phone Radha Mckeon MD Primary Care Provider [phone] Encounter Details Date Type Department Care Team (Late st Contact Info) Description 04/20/2022 Orders Only Hematology [place] [address] Ellis Childers MD [facility] [address] HEMATOLOGY [place] [address] Social History Tobacco Use Types Packs/Day Years [...] AM EDT Hospital Encounter Non-Invasive Cardiology Lab [address] Arrived 02/22/2025 1:30 PM EDT Appointment Hematology and Oncology at [place] [address] 02/22/2025 2:30 PM EDT Office Visit Hematology and Oncology at [place] [address] Ellis Childers MD [facility] [address] [place] [address] Felicita Landa APRN [facility] [address] [place] [address] documented as of this encounter Visit Diagnoses Not on filedocumented in this encounter Care Teams Taxation Accountant Relationship Specialty Start Date End Date Radha Mckeon MD [address] [place] [address] PCP - General 09/23/10 documented as of this encounter
--- OUTSIDE RECORDS SUMMARY | 2024-07-24 17:23 | XMS_ITS | Encounter Summary ---
Author Organization [facility] [place] [address] Care Team Providers Care Director Of Nursing Name Role Phone Radha Mckeon MD Primary Care Provider [phone] Encounter Details Date Type Department Care Team (Late st Contact Info) Description 04/08/2022 Orders Only [place] [address] Ellis Childers MD [facility] [address] [place] [address] Social History Tobacco Use Types Packs/Day Years [...] AM EDT Hospital Encounter Non-Invasive Cardiology Lab [address] Arrived 02/22/2025 1:30 PM EDT Appointment Hematology and Oncology at [place] [address] 02/22/2025 2:30 PM EDT Office Visit Hematology and Oncology at [place] [address] Ellis Childers MD [facility] [address] [place] [address] Felicita Landa APRN [facility] [address] [place] [address] documented as of this encounter Visit Diagnoses Not on filedocumented in this encounter Care Teams Director Of Nursing Relationship Specialty Start Date End Date Radha Mckeon MD [address] [place] [address] PCP - General 09/23/10 documented as of this encounter
--- OUTSIDE RECORDS SUMMARY | 2024-07-24 17:23 | XMS_ITS | Encounter Summary ---
Author Organization [facility] [place] [address] Care Team Providers Care Gas Welding Machine Operator Name Role Phone Radha Mckeon MD Primary Care Provider [phone] Encounter Details Date Type Department Care Team (Late st Contact Info) Description 04/17/2022 Orders Only Hematology [place] [phone] Tyesha Nicolas RN Thrombocytopenia Social History Tobacco Use Types Packs/Day [...] AM EDT Hospital Encounter Non-Invasive [place] [address] Arrived 02/22/2025 1:30 PM EDT Appointment Hematology and Oncology at [place] [address] 02/22/2025 2:30 PM EDT Office Visit Hematology and Oncology at [place] [address] Ellis Childers MD [facility] DR [place] [address] Felicita Landa APRN [facility] [address] [place] [address] documented as of this encounter Visit Diagnoses Diagnosis Thrombocytopenia Thrombocytopenia, unspecified documented in this encounter Care Teams Gas Welding Machine Operator Relationship Specialty Start Date End Date Radha Mckeon MD [address] [place] [address] PCP - General 09/23/10 documented as of this encounter
--- OUTSIDE RECORDS SUMMARY | 2024-07-24 17:23 | XMS_ITS | Encounter Summary ---
Author Organization [facility] [place] [address] Care Team Providers Care Hand Mold Maker Name Role Phone Radha Mckeon MD Primary Care Provider [phone] Reason for Referral * Consultation (Emergency) - Duplicate Referral Specialty Diagnoses / Procedures Referred By Becki guillory Referred To Contact Otolaryngology Diagnoses Thrombocytopenia Ellis Childers MD [facility] [address] [place] [address] [facility] Otolaryngology [address] [place] [phone] Referral ID Status Reason Start Date Expiration Date Visits Requested Visits Authorized [id number] Duplicate Referral Consult, Test & Treat 05/08/2022 05/08/2023 1 1 Encounter Details Date Type Department Care Team (Late st Contact Info) Description 05/08/2022 Orders Only Hematology [place] [address] Tyesha Nicolas RN Thrombocytopenia Social History Tobacco [...] AM EDT Hospital Encounter Non-Invasive [place] [address] Arrived 02/22/2025 1:30 PM EDT Appointment Hematology [place] [address] 02/22/2025 2:30 PM EDT Office Visit Hematology [place] [address] Ellis Childers MD [facility] [address] [place] [address] Felicita Landa APRN [facility] [place] [address] Scheduled Referrals Name Type Priority Associated Diagnoses Orde r Schedule Referral to ENT Outpatient Referral STAT Thrombocytopenia Ordered: 05/08/2022 documented as of this encounter Visit Diagnoses Diagnosis Thrombocytopenia Thrombocytopenia, unspecified documented in this encounter Care Teams Hand Mold Maker Relationship Specialty Start Date End Date Radha Mckeon MD [address] [place] [address] PCP - General 09/23/10 documented as of this encounter
--- OUTSIDE RECORDS SUMMARY | 2024-07-24 17:23 | XMS_ITS | Encounter Summary ---
Author Organization [facility] [place] [address] Care Team Providers Care Tub Rider Name Role Phone Radha Mckeon MD Primary Care Provider [phone] Encounter Details Date Type Department Care Team (Latest Contact Info) Description 04/28/2022 10:11 AM EDT - 04/28/2022 11:59 PM EDT Hospital Encounter Hematology [place] [address] Thrombocytopenia Discharge Disposition: Home Social History Tobacco [...] QD 04/23/2020 fluticasone propionate (FLONASE) 50 mcg/actuation [place], Suspension INSTILL 1SPRAY IN EACH NOSTRIL TWICE [...] AM EDT Hospital Encounter Non-Invasive Cardiology Lab [facility] [place] [id number] Arrived 02/22/2025 1:30 PM EDT Appointment Hematology [place] [address] 02/22/2025 2:30 PM EDT Office Visit Hematology [place] [address] Ellis Childers MD [facility] DR [place] [address] Felicita Landa APRN [facility] [address] [place] [address] Scheduled Orders Name Type Priority Associated Diagnoses Orde r Schedule CBC (with Diff) Lab STAT Thrombocytopenia 1 Occurrences starting 04/28/2022 until 04/28/2022 documented as of this encounter Procedures Procedure Name Priority Date/Time Associated Diagnosis Comments TYPE AND SCREEN VALIDITY Routine 04/28/2022 10:24 AM EDT ABORH RECHECK STATUS Routine 04/28/2022 10:24 AM EDT ANTIBODY SCREEN MANUAL Routine 04/28/2022 10:24 AM EDT ABORH TYPE MANUAL Routine 04/28/2022 10: 24 AM EDT HEMOGRAM STAT 04/28/2022 10:24 AM EDT Thrombocytopenia DIFFERENTIAL, AUTOMATED STAT 04/28/2022 10:24 AM EDT Thrombocytopenia HC CBC,PLT & AUTO DIFF STAT 04/28/2022 10:24 AM EDT Thrombocytopenia documented in this encounter Results * Type and Screen Validity (04/28/2022 10:24 AM EDT) T&S only valid at [facility] LABORATORY Comment:This Type and Screen result is only valid at the [facility] Blood Venous Draw / Unknown 04/28/2022 10:24 AM EDT 04/28/2022 10:32 AM EDT Narrative Resulting Agency Comment Spec In Lab Ellis Childers MD BLOOD BANK LAB O [facility]AB[facility] [place] [address] * ABORH Recheck Status (04/28/2022 10:24 AM EDT) ABORH Type Recheck Completed [facility] Blood Venous Draw / Unknown 04/28/2022 10:24 AM EDT 04/28/2022 10:32 AM EDT Narrative Resulting Agency Comment Spec In Lab Ellis Childers MD [facility]LO[facility] LAB O [facility] [place] [address] * Antibody screen manual (04/28/2022 10:24 AM EDT) AB Screen Interp Negative [facility] Blood Venous Draw / Unknown 04/28/2022 10:24 AM EDT 04/28/2022 10:32 AM EDT Narrative Resulting Agency Comment Spec In Lab Ellis Childers MD [facility] [place] [address] * ABORh Type Manual (04/28/2022 10:24 AM EDT) Expires at [id number] on: 05/01/2022 [facility] ABORH Type O Pos [facility] Blood Venous Draw / Unknown 04/28/2022 10:24 AM EDT 04/28/2022 10:32 AM EDT Narrative Resulting Agency Comment Spec In Lab Ellis Childers MD BLOOD BANK LAB O [facility] [place] [address] * (ABNORMAL) Differential, Automated (04/28/2022 10:24 AM EDT) Neutrophil % 74.1 % [facility] Neutrophil Absolute 4.97 1.70 - 6.10 x10(3)/mc L [facility] Lymph % 11.3 % [facility] Lymphocytes Abs 0.8(L) 0.9 - 3.2 x10(3)/mc L [facility] Monocyte % 10.4 % [facility] Monocyte Abs 0.7 0.3 - 0.9 x10(3)/mc L [facility] Eos % 3.0 % [facility] Eosinophils Abs 0.2 0.0 - 0.4 x10(3)/mc L [facility] Basophil % 0.9 % [facility] Baso Absolute 0.1 0.0 - 0.1 x10(3)/mc L [facility] Immature Gran % 0.30 % [facility] Comment: Immature granulocytes(IG's)percentage and absolute count will include metamyelocytes, myelocytes, and promyelocytes. Blood smears from CBCs yielding IG's will be scanned manually for concordance. If this scan disagrees with the automated IG or if promyelocytes are noted, a manual differential will be performed. Immature Gran Absolute 0.02 0.00 - 0.04 x10(3)/mc L [facility] Blood 04/28/2022 10:2 4 AM EDT 04/28/2022 10:48 AM EDT Narrative Resulting Agency Comment Spec In Lab Ellis Childers MD HEMATOLOGY ORDER DELICIA Performing Organization Address City/[facility]/ZIP Co de Phone Number [facility] [place] [address] * (ABNORMAL) Hemogram (04/28/2022 10:24 AM EDT) White Blood Cell 6.7 4.0 - 9.5 x10(3)/mc L [facility] Red Blood Cell 5.07 4.58 - 5.54 x10(6)/mc L [facility] Hemoglobin 15.5 13.7 - 16.5 g/dL [facility] Hematocrit 46.8 40.5 - 48.5 % [facility] Mean Cell Volume 92.3 82.9 - 93.[address] [facility] Mean Cell Hemoglobin 30.6 27.5 - 32.[address] [facility] Mean Cell Hemoglobin Concentration 33.1 32.0 - 35.7 g/dL [facility] Platelet 110(L) 145 - 357 x10(3)/mc L [facility] RDW Standard Deviation 41.8 36.0 - 45.0 [facility] LABORATORY RDW coefficient of variation 12.3 11.4 - 13.8 % [facility] Mean Platelet Volume 11.3 7.6 - 12.[address] [facility] NRBC% auto 0.0 % [facility] NRBC Absolute 0.000 0.000 - 0.000 x10(3)/ L [facility] Blood 04/28/2022 10:2 4 AM EDT 04/28/2022 10:48 AM EDT Narrative Resulting Agency Comment Spec In Lab Ellis Childers MD HEMATOLOGY ORDER DELICIA [facility] [place] [address] documented in this encounter Visit Diagnoses Diagnosis Thrombocytopenia Thrombocytopenia, unspecified documented in this encounter Care Teams Tub Rider Relationship Specialty Start Date End Date Radha Mckeon MD [address] [place] [address] PCP - General 09/23/10 documented as of this encounter
--- OUTSIDE RECORDS SUMMARY | 2024-07-24 17:24 | XMS_ITS | Encounter Summary ---
Author Organization [facility] [place] [address] Care Team Providers Care Circulation Assistant Name Role Phone Radha Mckeon MD Primary Care Provider [phone] Reason for Visit * Reason Comments Medication Refill Encounter Details Date Type Department Care Team (Late st Contact Info) Description 01/25/2022 Refill Cardiology at [address] [address] Halima Mckeon, [facility] [place] [address] Medication Refill Social History Tobacco Use Types Packs/Day Years Used Date Smoking Tobacco: Former Cigarettes 2 16 0 11/09/1966 - 11/09/1982 Smokeless Tobacco: Never Alcohol Use Standard Drinks/Week Comments No 0 (1 standard drink = 0.6 oz pur e alcohol) Sex and Gender Information Value Date Recorded Sex Assigned at Not on file Gender Identity Not on file Sexual Orientation Not on file documented as of this encounter Plan of Treatment Upcoming Encounters Date Type Department Care Team (Late st Contact Info) Description 08/18/2024 11:00 AM EDT Hospital Encounter [place] [address] Arrived 02/22/2025 1:30 PM EDT Appointment Hematology [place] [address] 02/22/2025 2:30 PM EDT Office Visit Hematology [place] [address] Ellis Childers MD [facility] DR HEMATOLOGY [place] [address] Felicita Landa APRN [facility] DR HEMATOLOGY [place] [address] documented as of this encounter Visit Diagnoses Diagnosis Paroxysmal atrial fibrillation Atrial fibrillation documented in this encounter Care Teams Circulation Assistant Relationship Specialty Start Date End Date Radha Mckeon MD [address] [place] [address] PCP - General 09/23/10 documented as of this encounter
--- OUTSIDE RECORDS SUMMARY | 2024-07-24 17:24 | XMS_ITS | Encounter Summary ---
Author Organization [facility] [place] [address] Care Team Providers Care Crew Leader/Control Room Operator Name Role Phone Radha Mckeon MD Primary Care Provider [phone] Encounter Details Date Type Department Care Team (Late st Contact Info) Description 02/16/2022 Notes Only [facility] [place] [address] Kareem Mckeon MSW Social History Tobacco Use Types Packs/Day Years [...] as of this encounter Progress Notes * Kareem Mckeon MSW - 02/16/2022 11:59 PM EDT OFFICE of CARE MANAGEMENT CCM Scrap Crusher attempted to contact Mr. Machado by phone at ; however, he was unavailable. Scrap Crusher rajni a voicemail message asking for a return call. Scrap Crusher submitted a [facility] referral for service assessment Post-Op, as surgery is scheduled for 03/17/22. Kareem Mckeon LCSW documented in this encounter Plan of Treatment Upcoming Encounters Date Type Department Care Team (Late st Contact Info) Description 08/18/2024 11:00 AM EDT Hospital Encounter Non[place] [address] Arrived 02/22/2025 1:30 PM EDT Appointment Hematology [place] [phone] 02/22/2025 2:30 PM EDT Office Visit Hematology [place] [address] Ellis Childers MD [facility] [address] HEMATOLOGY [place] [address] Felicita Landa APRN [facility] [place] [address] documented as of this encounter Visit Diagnoses Not on filedocumented in this encounter Care Teams Crew Leader/Control Room Operator Relationship Specialty Start Date End Date Radha Mckeon MD [address] [place] [address] PCP - General 09/23/10 documented as of this encounter
--- OUTSIDE RECORDS SUMMARY | 2024-07-24 17:24 | XMS_ITS | Encounter Summary ---
Author Organization [facility] [place] [address] Care Team Providers Care Med Surg Rn Name Role Phone Radha Mckeon MD Primary Care Provider Reason for Visit * Reason Comments Neck Pain Left Arm Pain Encounter Details Date Type Department Care Team (Latest Contact Info) Description 01/05/2022 1:00 PM EST Office Visit [facility] [place] [address] Rey Clayton MD [facility] [place] [address] Radiculopathy of cervical region; Pain in extremity, unspecified extremity Social History Tobacco Use Types Packs/Day Years [...] Sign Reading Time Taken Comments Blood Pressure 136/74 01/05/2022 1:10 PM EST Pulse 62 01/05/2022 1:10 PM EST Temperature - - Respiratory Rate - - Oxygen Saturation - - Inhaled Oxygen Concentration - - Weight 81.2 kg (179 lb) 01/05/2022 1:10 PM EST Height 180.3 cm (5' 11) 01/05/2022 1:10 PM EST Body Mass Index 24.97 01/05/2022 1:10 PM EST documented in this encounter Progress Notes * Rey Clayton MD - 01/05/2022 1:00 PM EST Interval history: Mr. Machado returns today to discuss his neck pain radiating to his left upper extremity. To review, he is a 71-year-old male who presents with approximately a year and a half of neck pain radiating to his left shoulder, lateral arm, lateral forearm. He also reports numbness in his radial forearm and diffusely throughout his hand. He has been treating this with physical therapy for many months without improvement. He currently takes Tylenol with some benefit. He occasionally takes 7.5 to 50 mg of oxycodone gives him some relief. He had a cervical epidural steroid injection last summer that he does not believe helps. At this point, the pain is fairly unremitting and is markedly compromising his quality of life. He wants to proceed with surgery. Physical exam Patient is 5 foot 11, 179 pounds, with a BMI of 25 General: Patient is comfortable, no acute distress Neck: His neck is tender to palpation. Neurological exam: He has 5/5 strength of all upper extremity motors. He has a normal sensory exam.He has a positive Spurling sign left. Karis's is negative bilaterally. He has no clonus. Shoulder exam: He has somewhat limited active forward elevation of his left shoulder. Range of motion of his left shoulder is not painful. Vascular exam: He has palpable pulses bilaterally. Imaging: AP and lateral flexion-extension x-rays of the cervical spine from 12/05/2020 were reviewed.This shows degenerative changes most pronounced at C5-6 and C6-C7. There is no instability. MRI of the cervical spine from 01/05/2022 was reviewed. This is similar to his last MRI. It showed degenerative changes throughout the cervical spine, most pronounced in the lower cervical spine. At C4-C5, there is severe left and moderate right foraminal narrowing. At C5-C6, there is moderate to severe bilateral foraminal stenosis. At C6/C7, there is severe right and mild left foraminal narrowing.There is no significant spinal cord compression. Assessment/plan: Mr. 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 He does have a history of surgery on his left shoulder, and his left shoulder stiff, but it does not seem to be particularly painful. We discussed treatment options for this and include continued medication, further physical therapy, repeat injection, and surgery. At this point, hefeels as though he has failed to improve despite extensive nonoperative treatment, and he wants to proceed with surgery. Surgery his case will be a C4-C6 ACDF. The planned surgery was demonstrated onthe spine model. Consent was obtained. Risks were documented on the consent form. The typical recovery was reviewed. He will need a history and physical from his primary care physician and preadmission testing. I told him to avoid any aspirin, anti-inflammatory medication, physical within 1 week of surgery. I told him to stop his Xarelto 3 days before surgery. We will schedule surgery at his convenience. documented in this encounter Plan of Treatment Upcoming Encounters Date Type Department Care Team (Late st Contact Info) Description 08/18/2024 11:00 AM EDT Hospital Encounter Non-[place] [address] Arrived 02/22/2025 1:30 PM EDT Appointment Hematology [place] [address] 02/22/2025 2:30 PM EDT Office Visit Hematology [place] [phone] Ellis Childers MD [facility] HEMATOLOGY [place] [address] Felicita Landa APRN [facility] HEMATOLOGY [place] [address] documented as of this encounter Results * [...] who have questions please contact the health residential care facility manager that requested your imaging first. ? Electronically signed by: Sierra Isidro MD, [facility] ([phone]), at 06/18/2022 12:28 PM Narrative 06/18/2022 12:28 [...] osteophytes are redemonstrated. Disk spaces: C6-7 and N6-N0-orncygil disc space is redemonstrated Soft tissues: The [...] osteophytes are redemonstrated. Disk spaces: C6-7 and L8-H4-ryvnqeqz disc space is redemonstrated Soft tissues: The [...] patients who have questions please contactthe health residential care facility manager that requested your imaging first. Electronically signed by: Sierra Isidro MD, [facility]([phone]), at 06/18/2022 12:28 PM Rey Clayton MD IMG DX ORDERABLES documented in this encounter Visit Diagnoses Diagnosis Radiculopathy of cervical region Brachial neuritis or radiculitis nos Pain in extremity, unspecified extremity Radiculopathy of cervical region Brachial neuritis or radiculitis nos documented in this encounter Care Teams Med Surg Rn Relationship Specialty Start Date End Date Radha Mckeon MD [address] [place] [address] PCP - General 09/23/10 documented as of this encounter
--- OUTSIDE RECORDS SUMMARY | 2024-07-24 17:24 | XMS_ITS | Encounter Summary ---
Author Organization [facility] [place] [address] Care Team Providers Care Chemist Assistant Name Role Phone Radha Mckeon MD Primary Care Provider [phone] Reason for Visit * Reason Comments Medication Refill Encounter Details Date Type Department Care Team (Late st Contact Info) Description 07/31/2021 Refill Cardiology at [address] [address] Halima Mckeon PA [facility] [place] [address] Medication Refill Social History Tobacco Use Types [...] Telephone Encounter - Franci Pan RN - 07/31/2021 5:10 PM EDT CE: 06/25/21 with trudi Robb Per assessment and Plan: ?? Though he has not had recurrent syncope recently, episodic lightheadedness remains of concern to him. We discussed symptoms related to orthostatic hypotension and treatment strategies. He is typically hypertensive rather than hypotensive so I think it less likely that his symptoms are related to ort hostasis. In the absence of tachyarrythmias and with hypertension, I am reluctant to decrease his metoprolol or verapamil dose. 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 Next f/u visit scheduled for: due 06/2022 Franci Pan RN Cardiology Clinic at [place] [phone] documented in this encounter Plan of Treatment Upcoming Encounters Date Type Department Care Team (Late st Contact Info) Description 08/18/2024 11:00 AM EDT Hospital Encounter Non-Invasive Cardiology Lab [place] [phone] Arrived 02/22/2025 1:30 PM EDT Appointment Hematology and Oncology at [place] [address] 02/22/2025 2:30 PM EDT Office Visit Hematology and Oncology at [place] [address] Ellis Childers MD [facility] [place] [address] Felicita Landa APRN [facility] [place] [address] documented as of this encounter Visit Diagnoses Diagnosis Paroxysmal atrial fibrillation Atrial fibrillation documented in this encounter Care Teams Chemist Assistant Relationship Specialty Start Date End Date Radha Mckeon MD [address] [place] [address] PCP - General 09/23/10 documented as of this encounter
--- OUTSIDE RECORDS SUMMARY | 2024-07-24 17:24 | XMS_ITS | Encounter Summary ---
Author Organization [place] [address] Care Team Providers Care Physician Interventional Cardiologist Name Role Phone Radha Mckeon MD Primary Care Provider Encounter Details Date Type Department Care Team (Late st Contact Info) Description 06/25/2021 4:15 PM EDT Office Visit Cardiology at [address] [address] Diogo Robb PA [facility] [place] [address] Paroxysmal atrial fibrillation Social History Tobacco Use [...] Sign Reading Time Taken Comments Blood Pressure 133/71 06/25/2021 4:19 PM EDT Pulse 54 06/25/2021 4:19 PM EDT Temperature - - Respiratory Rate - - Oxygen Saturation 97% 06/25/2021 4:19 PM EDT Inhaled Oxygen Concentration - - Weight 79.4 kg (175 lb) 06/25/2021 4:19 PM EDT Height 182.9 cm (6') 06/25/2021 4:19 PM EDT Body Mass Index 23.73 06/25/2021 4:19 PM EDT documented in this encounter Progress Notes * Diogo Robb PA - 06/25/2021 4:15 PM EDT Subjective: Patient ID: Malik Machado is a 71 y.o. male. HPI 71yo man with complex hx including SVT, afib s/p ablation x2, continuing lightheadedness and intermittent sensation of tachycardia without clear correlation with arrythmia. He is currently also followed by pain management, neurology and hematology(for ITP). As routine ambulatory monitoring, [...] 150mg daily. He is anticoagulated with dabigatran. Patient Active Problem List Diagnosis ??? A-fib Overview Note: --Recurrent AF --S/P cardioversions x 3 (09/2005, 01/2006, 07/2007). --AF that has resolved spontaneously (12/2006, etc). 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 --Flecainide stopped after 4 doses due to SD/QRS prolongation, 12/2007. --Started on dofetilide 500mcg BID [...] stage IV. ??? Hypertension Overview Note: ??? Radiculopathy of cervical region ??? Trigger [...] --Amitriptyline (palpitations), Lipitor (liver enzyme abnormalities), flecainide (SD/QRS prolongation noted 12/2007). ??? History of surgery [...] IMPLANTS USED: All implants were from the [employer] total knee system. 1. A size 4 [...] Rx, 2011. --Currently on oxycodone. --Lumbar radiculopathy. Social History Socioeconomic History ??? Marital status: Spouse name: Not on file ??? Number of children: Not on file ??? Years of education: Not on file ??? Highest education level: Not on file Occupational History ??? Not on file Tobacco Use ??? Smoking status: Former Smoker [...] Social Determinants of Health Financial Resource Strain: ??? Difficulty of Paying Living Expenses: Not on file Food Insecurity: ??? Worried About Running Out of Food in the Last Year: Not on file ??? Ran Out of Food in the Last Year: Not on file Transportation Needs: ??? Lack of Transportation (Medical): Not on file ??? Lack of Transportation (Non-Medical): Not on file Physical Activity: ??? Days of Exercise per Week: Not on file ??? Minutes of Exercise per Session: Not on file He is currently pursuing a bachelor's degree at [employer] in music [employer] and writing. 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 His has many chronic medical issues and is O2 dependent. Current Outpatient Medications Medication Sig Note Dispense Refill ??? zonisamide (ZONEGRAN) 50 mg Capsule TAKE 1 CAPSULE BY MOUTH EVERY NIGHT AT BEDTIME ??? Emgality Pen 120 mg/mL Pen Injector INJECT 1 PEN SUBCUTANEOUSLY ONCE MONTHLY ??? oxyCODONE (ROXICODONE) 15 mg Tablet 1-2 tab(s) ??? acetaminophen (Tylenol) 500 mg Tablet Take 2 tablets by mouth every 8 hours. Take as directed around the clock for ten days after your surgery. After that you can take Tylenol as needed per package insert. ??? pregabalin (LYRICA) 100 mg Capsule Take 1 capsule by mouth 2 times daily. ??? metoprolol succinate XL (Toprol-XL) 100 mg Tablet Sustained Release 24 hr Take 1.5 tablets by mouth daily. 135 tablet 1 ??? flu vacc [id number],65yr up,/PF (FluZONE HighDose Quad 20-21 PF) 240 mcg/0.7 mL Syringe seasonal ??? lidocaine-prilocaine (EMLA) Cream as needed. ??? [...] QD ??? fluticasone propionate (FLONASE) 50 mcg/actuation [place], Suspension INSTILL 1SPRAY IN EACH NOSTRIL TWICE A DAY ??? Xarelto 20 mg Tablet TK 1 T PO QD ??? lamoTRIgine (LAMICTAL) 25 mg Tablet Take [...] mouth nightly.) 90 tablet 3 ??? levothyroxine (SYNTHROID) 100 mcg Tablet Take 100 mcg by mouth daily. ??? MULTIVITAMIN W-MINERALS/LUTEIN (CENTRUM SILVER ORAL) Take 1 tablet by mouth. ??? [place]-3 Fatty Acids-Vitamin E (FISH OIL) 1,000 mg Cap Take 2,000 mg by mouth daily. ??? baclofen (LIORESAL) 10 mg tablet Take 10 mg by mouth nightly as needed. ??? simvastatin (ZOCOR) 10 mg tablet Take 10 mg by mouth nightly. ??? acyclovir (ZOVIRAX) 200 mg Capsule 1 capsule as needed. Indications: prn ??? oxyCODONE (ROXICODONE) 10 mg Tablet Take 1-2 tablets by mouth every 3 hours as needed (mild pain (1-3) take 10 mg, moderate pain (4-6) take 15 mg, severe pain (7-10) take 20 mg). (Patient not taking: Reported on 06/25/2021) ??? BOTOX 200 unit Recon Soln Inject 200 Units as directed Q 3 Months. Objective: Physical Exam Vitals and nursing note reviewed. Constitutional: Appearance: Normal appearance. Cardiovascular: Rate and Rhythm: Normal rate and regular rhythm. Pulmonary: Effort: Pulmonary effort is normal. Breath sounds: Normal breath sounds. Musculoskeletal: General: Normal range of motion. Skin: General: Skin is warm and dry. Neurological: General: No focal deficit present. Mental Status: He is alert and oriented to person, place, and time. 12 lead EK06/25/2021 Sinus bradycardia @ 56; SD 174; QRS 144; QTc 414ms NM stress: 07/10/2020 No fixed or reversible perfusion defects are present. Myocardial function: There is normal wall thickening and wall motion. Left ventricular ejection fraction: 60 % (normal greater than than 50%). INCIDENTAL CT FINDINGS: Coronary and aortic calcifications Echocardiogram:??11/24/2016 1. Limited follow up study post atrial fibrillation ablation 2. The pericardium appears normal and there is no evidence of a pericardial effusion. 3. The left ventricular chamber size is normal. Left ventricular wall thickness is normal. There is normal global left ventricular systolic function. The quantitative left ventricular ejection fraction by biplane Herrera's method is 58%. There are no left ventricular segmental wall motion abnormalities. 4. Right ventricular chamber size, wall thickness, and systolic function are within normal limits. Assessment and Plan: 71yo man??with complex arrythmia hx including afib and SVT(on monitoring but unable to elicit @ EPS), s/p afib ablation and redo afib ablation in November 2016 now with continuing intermittent episodes of profound lightheadedness not clearly associated with either tachycardia or bradycardia.??He is maintained on verapamil 120mg and metoprolol 150mg daily and anticoagulated with dabigatran. He was last seen by Dr. Gan on 12/02/2017 and later underwent an ILR implant in April 2018. Though he has continued to report intermittent symptoms, there is no correlation with sustained arrythmia. He deniesrecent syncope. His ILR did reveal an episode that occurred on April 14 @ 0542 suggestive of a vagal episode with sinus slowing to a pause with spontaneous improvement of heart rate to normal. He was unaware of this episode and believes he was either sleeping or perhaps having a bowel movement. ?? We reviewed his clinical data and discussed the findings at some length. Though he has not had recurrent syncope [...] left anterior hemiblock that have been stable. Plan: ILR remote follow up in six months(ILR implant April 2018). EP clinic follow up in one year with 12 lead EKG and ILR interrogation Provider: ANDREE Shelley EP Consult attending physician: Britt Benson MD documented in this encounter Plan of Treatment Upcoming Encounters Date Type Department Care Team (Late st Contact Info) Description 08/18/2024 11:00 AM EDT Hospital Encounter Non[place] [address] Arrived 02/22/2025 1:30 PM EDT Appointment Hematology [place] [address] 02/22/2025 2:30 PM EDT Office Visit Hematology [place] [phone] Ellis Childers MD [facility] [place] [address] Felicita Landa APRN [facility] [address] [place] [address] documented as of this encounter Procedures Procedure Name Priority Date/Time Associated Diagnosis Comments EKG 12-LEAD Routine 06/25/2021 4:26 PM EDT Paroxysmal atrial fibrillation documented in this encounter Results * EKG 12 Lead (06/25/2021 4:26 PM EDT) Ventricular rate 56 BPM MUSE SYSTEM Atrial Rate 56 BPM MUSE SYSTEM P-R Interval 174 ms MUSE SYSTEM QRS Duration 144 ms MUSE SYSTEM Q-T Interval 430 ms MUSE SYSTEM QTC Calculated (Bezet) 414 ms MUSE SYSTEM Calculated P Merna 74 degrees MUSE SYSTEM Calculated R Merna -54 degrees MUSE SYSTEM Calculated T Merna 2 degrees MUSE SYSTEM INTERPRETATION Sinus bradycardia Right bundle branch block Left anterior fascicular block Bifascicular block Abnormal ECG When compared with ECG of 25-JUN-2020 15:41, No significant change was found Confirmed by MD Everardo, Jacky Villegas ([id number]) on 06/26/2021 1:34:21 PM MUSE SYSTEM 06/25/2021 4:26 PM EDT 06/26/2021 1:34 PM EDT Salomón Gan MD ECG ORDERABLES MUSE SYSTEM documented in this encounter Visit Diagnoses Diagnosis Paroxysmal atrial fibrillation Atrial fibrillation documented in this encounter Care Teams Physician Interventional Cardiologist Relationship Specialty Start Date End Date Radha Mckeon MD [address] [place] [address] PCP - General 09/23/10 documented as of this encounter
--- OUTSIDE RECORDS SUMMARY | 2024-07-24 17:24 | XMS_ITS | Encounter Summary ---
Author Organization [facility] [place] [address] Care Team Providers Care Wood Inspector Name Role Phone Radha Mckeon MD Primary Care Provider [phone] Encounter Details Date Type Department Care Team (Late st Contact Info) Description 02/23/2022 Telephone [facility] [place] [phone] Cely Irvin Social History Tobacco Use Types Packs/Day Years [...] encounter Miscellaneous Notes * Telephone Encounter - Cely Irvin - 02/23/2022 11:38 AM EDT Rec'd call from patient stating he was looking to speak to OSBALDO Kemp, regarding a referral for his post surgical VNA. I attempted to connect the call to Kareem, however she was unavailable.I advised that I would forward a message asking her to reach out to him MAXIME and he was agreeable to this. documented in this encounter Plan of Treatment Upcoming Encounters Date Type Department Care Team (Late st Contact Info) Description 08/18/2024 11:00 AM EDT Hospital Encounter Non-[place] [address] Arrived 02/22/2025 1:30 PM EDT Appointment Hematology [place] [address] 02/22/2025 2:30 PM EDT Office Visit Hematology [place] [phone] Ellis Childers MD [facility] [address] [place] [address] Felicita Landa APRN [facility] [place] [address] documented as of this encounter Visit Diagnoses Not on filedocumented in this encounter Care Teams Wood Inspector Relationship Specialty Start Date End Date Radha Mckeon MD [address] [place] [address] PCP - General 09/23/10 documented as of this encounter
--- OUTSIDE RECORDS SUMMARY | 2024-07-24 17:24 | XMS_ITS | Encounter Summary ---
Author Organization [facility] [place] [address] Care Team Providers Care Lamp Shade Maker Name Role Phone Radha Mckeon MD Primary Care Provider [phone] Encounter Details Date Type Department Care Team (Late st Contact Info) Description 12/03/2021 Telephone [place] [phone] Monalisa Verde Social History Tobacco Use Types Packs/Day Years [...] encounter Miscellaneous Notes * Telephone Encounter - Monalisa Verde - 12/03/2021 9:37 AM EST Left message requesting patient return call at [phone]. Need to inform patient of MRI on 01/05/22. Patient also needs to have a chest x-ray within 90 days prior to his MRI. Sulema to place x-ray order - need to determine if patient would like to do this here at on 01/05/22 (will need to arrive at 9AM to have this done) or if he would like to have it done at a facility closer to home. documented in this encounter Plan of Treatment Upcoming Encounters Date Type Department Care Team (Late st Contact Info) Description 08/18/2024 11:00 AM EDT Hospital Encounter Non-[place] [address] Arrived 02/22/2025 1:30 PM EDT Appointment H[place]ology [place] [address] 02/22/2025 2:30 PM EDT Office Visit Hematology [place] [address] Ellis Childers MD [facility] [address] [place] [address] Felicita Landa APRN [facility] [address] [place] [address] documented as of this encounter Visit Diagnoses Not on filedocumented in this encounter Care Teams Lamp Shade Maker Relationship Specialty Start Date End Date Radha Mckeon MD [address] [place] [address] PCP - General 09/23/10 documented as of this encounter
--- OUTSIDE RECORDS SUMMARY | 2024-07-24 17:24 | XMS_ITS | Encounter Summary ---
Author Organization [facility] [place] [address] Care Team Providers Care Glass Belt Sander Name Role Phone Radha Mckeon MD Primary Care Provider [phone] Encounter Details Date Type Department Care Team (Latest Contact Info) Description 07/10/2021 - 07/10/2021 11:59 PM EDT Hospital Encounter Non[place] [phone] Sanford Byrd MD [facility] [place] [address] Atrial fibrillation, unspecified type Discharge Disposition: Home Social History Tobacco Use [...] Sig Dispensed Refills Start Date End Date acetaminophen (Tylenol) 500 mg tablet as needed. 01/16/2017 zonisamide (ZONEGRAN) 50 mg Capsule TAKE 1 [...] QD 04/23/2020 fluticasone propionate (FLONASE) 50 mcg/actuation [place], Suspension INSTILL 1SPRAY IN EACH NOSTRIL TWICE [...] tablet Take 10 mg by mouth nightly. oxyCODONE (ROXICODONE) 15 mg Tablet 15 mg as needed. 05/20/2022 acetaminophen (Tylenol) 500 mg Tablet Take 2 tablets by mouth every 8 hours. Take as directed around the clock for ten days after your surgery. After that you can take Tylenol as needed per package insert. 05/15/2021 05/20/2022 pregabalin (LYRICA) 100 mg Capsule Take 1 capsule by mouth 2 times daily. 02/11/2021 11/29/2023 metoprolol succinate XL (Toprol-XL) 100 mg Tablet Sustained Release 24 hrIndications:Paroxy smal atrial fibrillation Take 1.5 tablets by mouth daily. 135 tablet 1 02/04/2021 08/01/2021 flu vacc [id number],65yr up,/PF (FluZONE HighDose Quad 20-21 PF) 240 mcg/0.7 mL Syringe seasonal 07/23/2020 04/01/2022 Xarelto 20 mg Tablet TK 1 T PO QD 03/26/2020 022 oxyCODONE (ROXICODONE) 10 mg Tablet Take 1-2 tablets by mouth every 3 hours as needed (mild pain (1-3) take 10 mg, moderate pain (4-6) take 15 mg, severe pain (7-10) take 20 mg). 11/17/2019 01/05/2022 omeprazole (PRILOSEC) 20 mg Capsule, Delayed Release(E.C.) Take 20 mg by mouth 2 times daily. 10/07/2017 08/03/2023 fish oil-omega-3 fatty acids with vitamin E 1,000 mg Capsule Take 2,000 mg by mouth daily. 05/20/2022 documented as of this encounter Plan of Treatment Upcoming Encounters Date Type Department Care Team (Late st Contact Info) Description 08/18/2024 11:00 AM EDT Hospital Encounter [place] [phone] Arrived 02/22/2025 1:30 PM EDT Appointment Hematology [place] [phone] 02/22/2025 2:30 PM EDT Office Visit Hematology [place] [phone] Ellis Childers MD [facility] [place] [address] Felicita Landa APRN [facility] [place] [address] documented as of this encounter Procedures Procedure Name Priority Date/Time Associated Diagnosis Comments ILR INTERROGATION 1 MONTH Routine 07/11/2021 12:01 PM EDT Atrial fibrillation, unspecified type documented in this encounter Results * ILR INTERROGATION 1 MONTH (07/11/2021 12:01 PM EDT) Anatomical Region Laterality Modality Other Narrative 07/15/2021 2:10 PM EDT Cardiac Electrophysiology Implantable Loop Recorder (ILR) Remote Monitoring Interpretation Transmission Date: 07/10/21 Device Type: Implantable Loop Recorder Picking Tech: VAN Implanted: 04/04/18 Indication: atrial fibrillation Battery Status: OK Events/Arrhythmias noted since last reset Symptom: 0 Tachy (> 167 BPM x 16 beats): 0 Bradycardia (<30 BPM x 4 beats):0 Asystole (<20 BPM): 1 14-Apr-2021 05:42 Sinus bradycardia in the 60s with abrupt rate decrease to sinus arrest with 5 beats in a 30-second period, one which appears junctional in absence of P wave. SVT/AT/other : 0 Atrial Fibrillation / Flutter: 0 Physiologic Monitoring: Presenting ECG- SR in the mid 60s Impression: Normally functioning device Episode of profound bradycardia with sinus arrest (12 seconds) in April. This was not associated with patient-triggers. During June 2021 EP follow-up, patient was unable to recall event. Halima Mckeon PA-C Cardiac Electrophysiology Sanford Byrd MD IMPLANTABLE CARDIAC DEVICE documented in this encounter Visit Diagnoses Diagnosis Atrial fibrillation, unspecified type documented in this encounter Care Teams Glass Belt Sander Relationship Specialty Start Date End Date Radha Mckeon MD [address] [place] [address] PCP - General 09/23/10 documented as of this encounter
--- OUTSIDE RECORDS SUMMARY | 2024-07-24 17:24 | XMS_ITS | Encounter Summary ---
Author Organization [facility] [place] [address] Care Team Providers Care Yarding Supervisor Name Role Phone Radha Mckeon MD Primary Care Provider [phone] Reason for Visit * Consultation (Routine) - Closed Specialty Diagnoses / Procedures Referred By Becki guillory Referred To Contact Hematology and Oncology Diagnoses Idiopathic thrombocytopenic purpura (ITP) Rey Clayton MD [facility] [place] [address] [facility] [address] [place] [address] Referral ID Status Reason Start Date Expiration Date V isits Requested Visits Authorized [id number] Closed Consult, Test & Treat 03/16/2022 03/16/2023 1 1 Encounter Details Date Type Department Care Team (Late st Contact Info) Description 04/01/2022 9:00 AM EDT Office Visit Hematology [place] [address] Ellis Childers MD [facility] [address] [place] [address] Milana Costello MD [facility] HEMATOLOGY/[place] [address] Thrombocytopenia; Radiculopathy of cervical region; Fatigue, unspecified type Social History Tobacco Use Types [...] Sign Reading Time Taken Comments Blood Pressure 113/72 04/01/2022 9:02 AM EDT Pulse 56 04/01/2022 9:02 AM EDT Temperature 36.3 ??C (97.3 ??F) 04/01/2022 9:02 AM ED T Respiratory Rate 18 04/01/2022 9:02 AM EDT Oxygen Saturation 96% 04/01/2022 9:02 AM EDT Inhaled Oxygen Concentration - - Weight 76.7 kg (169 lb) 04/01/2022 9:02 AM EDT Height 182.9 cm (6') 04/01/2022 9:02 AM EDT Body Mass Index 22.92 04/01/2022 9:02 AM EDT documented in this encounter Progress Notes * Ellis Guy MD - 04/01/2022 9:[address] [facility] HEMATOLOGY CONSULTATION VISIT NOTE DATE OF VISIT : 04/01/22 REASON FOR VISIT: Malik Machado is a 71 y.o. male referred by Rey Brown for evaluation of thrombocytopenia The history is obtained from the patient, and I also have reviewed all the available medical records provided by the referring physician and located in the electronic medical records. HISTORY OF PRESENT ILLNESS Malik Machado is [...] 16, MCV: 95, platelets: 80k INTERIM Hx: In office today, Malik Machado is here for initial consultation. - Walks 3-4 miles a day; - Occasional nose bleed - able to stop in few seconds with pressure - No fevers or night sweats; Lost 10lbs with in the past 3 months; - No swellings he noticed; - Feels tired. - No active cardiac/resp/GI issues; Rest of the ROS: Negative PROBLEM LIST Patient Active Problem List Diagnosis ??? A-fib Overview Note: --Recurrent AF --S/P cardioversions x 3 (09/2005, 01/2006, 07/2007). --AF that has resolved spontaneously (12/2006, etc). 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 --Flecainide stopped after 4 doses due to ND/QRS prolongation, 12/2007. --Started on dofetilide 500mcg BID [...] of periodic palpitations 2015. -- Admitted to [facility] 08/27/16, with A. fib at a [...] --Amitriptyline (palpitations), Lipitor (liver enzyme abnormalities), flecainide (ND/QRS prolongation noted 12/2007). ??? History of surgery [...] IMPLANTS USED: All implants were from the [employer] total knee system. 1. A size 4 [...] CURVED Procedure Date: 01/14/2010 ??? JOINT REPLACEMENT [id number] ??? PACEMAKER IMPLANT loop recorder ??? PRO INCISE FINGER TENDON SHEATH Right 05/15/2021 TENDON SHEATH INCISION (TRIGGER FINGER) (WRVU 3.11) performed by Jovan Duong MD at [facility] MAIN OR ??? PRO REVISE KNEE JOINT REPLACE, ALL PARTS Right 11/15/2019 @TOTAL KNEE REVISION ARTHROPLASTY, COMPLETE (WRU 27.11) performed by Sukhjinder Jauregui MD at [facility] MAIN OR ??? XR JOINT ASPIRATION - LARGE JOINT RIGHT Right 01/02/2019 XR Fluoro Guided Joint Aspiration Large Right 01/02/[address] [facility] RAD XRAY MEDICATIONS ??? metoprolol succinate [...] Capsule ??? fluticasone propionate (FLONASE) 50 mcg/actuation Mobile, Suspension ??? Xarelto 20 mg Tablet ??? [...] Flecainide Other (See Comments) Adverse effect caused ND and QRS prolongation Other reaction(s): Other (See Comments) Adverse effect caused ND and QRS prolongation Other reaction(s): Other (See Comment) PERSONAL and SOCIAL HISTORY ?? Lives in: [place], [place] (2.5 hr from [facility]). [facility] is the closest hospital. ?? Work [...] panceratic PHYSICAL EXAM VITAL SIGNS: Blood pressure 113/72, pulse 56, temperature 36.3 ??C (97.3 ??F), temperature source Temporal, resp. rate 18, height 182.9 cm (6'), weight 76.7 kg (169 lb), SpO2 96 %. ECOG PS: 1 GENERAL: Malik Machado is a well-appearing 71 y.o. male in no acute distress. HEENT: [...] tenderness. SKIN: No rashes, bruises or petechiae. LYMPH: No abnormal lymphadenopathy. NEUROLOGICAL: Alert and oriented to person, place and time; No focal neurological deficits; EXT: No peripheral edema. PSYCHIATRIC: normal affect and mood LABORATORY No results found for this or any previous visit (from the past 72 hour(s)). RADIOLOGY - None ASSESSMENT & PLANS Malik Machado is a 71 y.o. male with PMH of A. Fib, on anticoagulation, hypothyroidism, cervical radiculopathy, chronic pain syndrome , referred for evaluation of thrombocytopenia. He was noted to have chronic thrombocytopenia on routine Pre Op labs for surgical decompression of cervical foraminal stenosis and the surgery is now postponed b'se of that. On my review of data, he is noted to have chronic thrombocytopenia since 2012 platelet count ranging between 139 -69k. He is not on any medications which can contribute to thrombocytopenia. We reviewed the differential for his isolated, chronic thrombocytopenia which has been stable for over 8 years and I recommended some blood work today. CBC from today is again notable for isolated thrombocytopenia with platelet count of 94k. Rest of the 2 blood cell lines are normal. Immature platelet fraction is 5.1%. ID work-up is negative for hepC, HIV. B12 and folic acid levels are normal. H. pylori and TSH are pending at the time of this Note. 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 ITP is a diagnosis of exclusion as there is no test to confirm or rule out ITP. Reviewed my impression, underlying pathogenesis, natural history, prognosis, bleeding complications, threshold ptl count for various scenarios, treatment indications and treatment options for ITP with Mr. Malik Machado. . We generally do not treat ITP unless the plt count drops below 30K or in special scenarios such as prior to surgery. Spontaneous bleeding complications are highest with plt count below 20K. I discussed the risk factors for flare of ITP (infection, stress etc..), s/s of thrombocytopenia to monitor, showed him the google images of petechiae. He is on rivaroxaban for A.Fib and it is safe to take it as long as his platelet count is above 50k. On review of his records since 2012, for the past 8+ years his platelet count, was never below 50k. I advised him to avoid taking NSAIDs (ex: ibuprofen, naproxen), aspirin, fish oil etc.as they inhibit platelet function and increase the risk of bleeding. The platelet threshold for spinal surgeries in general is >100k. As his platelet count has been ~80 -90k lately, we can give a trial of dexamethasone 40 mg daily x4 days and recheck CBC on day 4 to assess the response. If his platelet count nicely improve with steroids, confirms the clinical suspicion of ITP and we can use this plan preoperatively for his spine surgery. I will touch base with Rey Kinsey about my impression and recommendations. I discussed all this during the visit based on my strong clinical suspicion for ITP. I called and left a voicemail to the patient after the visit. # Positive CHACORTA at 1 is to 160 titer : Advised him to follow-up with his PCP I reviewed my impression and recommendations with Malik Machado and answered all the questions.. Pt agreed with the plan. Thank you Rey Kinsey for asking us to see this very pleasant patient. Please don't hesitateto contact me if you'd like to discuss this patient's situation further. . Ellis Guy MD [facility] CC: MD Forrest Mae Adam M documented in this encounter Plan of Treatment Upcoming Encounters Date Type Department Care Team (Late st Contact Info) Description 08/18/2024 11:00 AM EDT Hospital Encounter Non[place] [phone] Arrived 02/22/2025 1:30 PM EDT Appointment Hematology [place] [phone] 02/22/2025 2:30 PM EDT Office Visit Hematology [place] [phone] Ellis Childers MD [facility] [address] H[place]AT[place] [address] Felicita Landa APRN [facility] [address] HEMATOLOGY [place] [address] documented as of this encounter Results * Folate, serum (04/01/2022 10:02 AM EDT) [facility] Folate 16.3 4.8 - 24.2 ng/mL [facility] Blood 04/01/2022 10:0 2 AM EDT 04/01/2022 10:18 AM EDT Narrative Resulting Agency Comment Spec In Lab Ellis Childers MD CHEMISTRY ORDERA BLES Performing Organization Address [facility]/ZIP Co de Phone Number [facility] [place] [address] * Vitamin B12 (04/01/2022 10:02 AM EDT) [facility] Vitamin B12 600 232 - 1,245 pg/mL [facility] Blood 04/01/2022 10:0 2 AM EDT 04/01/2022 10:18 AM EDT Narrative Resulting Agency Comment Spec In Lab Ellis Childers MD CHEMISTRY ORDERA BLES Performing Organization Address [facility]/ZIP Co de Phone Number [facility] [place] [address] * (ABNORMAL) CHACORTA (04/01/2022 10:02 AM EDT) [facility] CHACORTA Ab Screen Test ?Result ? Flag ??Unit ??RefValue Antinuclear Ab, HEp-2 Substrate, ?Positive 1:160 ??@ ?<1:80 (Negative) ??S ? ADDITIONAL INFORMATION --------- ?Method: Immunofluorescence using HEp-2 cellular substrate. ??CHACORTA Titer: ?1:160 ??CHACORTA Pattern: ?Speckled ??Cytoplasmic Pattern: ?Positive ??Lab Comment: ?SEE COMMENTS ?Cytoplasmic speckled staining pattern observed. May be ?associated with anti-ribosomal P, anti-Magdalena-1, or other ?anti-synthetase antibodies. ?Test Performed by: ?[facility][Note 2] ?[address] [place] [address] ?Wood Shop Teacher: Joaquin Hayward M.D. Ph.D.; CLIA# [id number] ([id number]) [facility] Blood 04/01/2022 10:0 2 AM EDT 04/01/2022 2:40 PM EDT Narrative Resulting Agency Comment Spec In Lab Ellis Childers MD LAB SEND OUT ORD ERABLES [facility] [place] [address] * HIV Screen, 4th Generation (MC/CGP/APD/NLH) (04/01/2022 10:02 AM EDT) HIV Ab/Ag Screen Negative Negative [facility] Comment: This 4th Generation HIV test screens for the presence of the HIV-1 p24 antigen as well as antibodies reactive against HIV-1 and HIV-2. A negative screen does not rule out an acute HIV infection. If acute HIV infection is suspected, testing should be repeated in 2 - 3 weeks or HIV nucleic acid testing performed. HIV Comment Low Risk of HIV Infection [facility] Blood 04/01/2022 10:0 2 AM EDT 04/01/2022 10:18 AM EDT Narrative Resulting Agency Comment Spec In Lab Ellis Childers MD CHEMISTRY ORDERA BLES Performing Organization Address [facility] Co de Phone Number [facility] [place] [address] * Hepatitis C Antibody (04/01/2022 10:02 AM EDT) Hepatitis C Antibody Negative Negative [facility] Blood 04/01/2022 10:0 2 AM EDT 04/01/2022 10:18 AM EDT Narrative Resulting Agency Comment Spec In Lab Ellis Childers MD CHEMISTRY ORDERA BLES Performing Organization Address [facility] Co de Phone Number [facility] [place] [address] * (ABNORMAL) Platelet count (04/01/2022 10:02 AM EDT) Platelet 94(L) 145 - 357 x10(3)/mc L [facility] Immature Plt % 5.1 0.0 - 7.4 % [facility] Comment: Limitation of the Immature Platelet Fraction (IPF)-May be less reliable when the platelet count is less than 75s704/uL due to statistical imprecision. The IPF value [...] in a decreased state of production. References: [employer] The Clinical Value of the Immature Platelet Fraction (IPF) in Cell Recovery Document Number 10-1143 04/2011 [employer] The Role of the Immature Platelet Fraction (IPF) in the Differential Diagnosis of Thrombocytopenia, Document MKT-10-1209 V003/12/14 P003/14 Blood 04/01/2022 10:0 2 AM EDT 04/01/2022 10:18 AM EDT Narrative Resulting Agency Comment Spec In Lab Ellis Childers MD HEMATOLOGY ORDER DELICIA [facility] [place] [address] documented in this encounter Visit Diagnoses Diagnosis Thrombocytopenia Thrombocytopenia, unspecified Radiculopathy of cervical region Brachial neuritis or radiculitis nos Fatigue, unspecified type documented in this encounter Care Teams Yarding Supervisor Relationship Specialty Start Date End Date Radha Mckeon MD [address] [place] [address] PCP - General 09/23/10 documented as of this encounter
--- OUTSIDE RECORDS SUMMARY | 2024-07-24 17:24 | XMS_ITS | Encounter Summary ---
Author Organization [facility] [place] [address] Care Team Providers Care Slag Worker Name Role Phone Radha Mckeon MD Primary Care Provider [phone] Encounter Details Date Type Department Care Team (Late st Contact Info) Description 05/29/2021 Telephone [place] [phone] Margoth Dumont LNA Social History Tobacco Use Types Packs/Day Years [...] encounter Miscellaneous Notes * Telephone Encounter - Margoth Dumont Jah - 05/29/2021 9:18 AM EDT Reached voicemail and left message as identified in contacts Identified myself and provided callback number: [phone]. 1. Patient instructed to arrive at 1445 on 05/30/21 with their driver/sales workers for their cervical epidural injection procedure. 2. Bring Updated list of medications including dosage and reason for taking. 3. Call the Pain Clinic Nurse at for any of the following situations that occur within 2 weeks of your procedure date: a. Any questions about your procedure b. You are having a Covid vaccine or other vaccine c. You have been exposed to anybody with a contagious illness such as Covid, flu, chicken pox d. You have any symptoms of illness such as: cough, sore throat, fever, N/V/D e. You are taking antibiotics to treat an infection f. You have any skin rashes, breakdown, blisters or open wounds g. You have had any hospitalizations, ED visit, surgery, other procedure, dental procedure h. You have taken oral steroids, or had a steroid injection. 4. If your pain has resolved or significantly improved such as a rating of 3 out of 10 or less, youmay need to cancel your procedure because it will likely be of little benefit to you and it is likely that your insurance will not cover it. Please call the Pain clinic nurse to discuss. 5. Was patient instructed to stop any medications? Yes a. If yes, instructions reviewed as follows: cici, 05/25/21 b. Name, date of last dose. c. Please call to reschedule your procedure if you did not stop this medication as directed. 6. Is patient having a nerve block: No a. If yes, instructed to not take any pain medication for 12 hours before the procedure time. 7. Please continue to take any prescribed medications that you were not told to stop, especially blood pressure medication because your procedure may be cancelled if your blood pressure is too high. 8. You were instructed to follow NPO guidelines: Yes if yes the following instructions were reviewed: a. You may eat up to 6 hours before your procedure b. You may have clear liquids only up to 2 hours before your procedure: water, apple juice, christina becca, sprite, popsicles, broth, tea or coffee plain or with sweetener, absolutely no dairy products, no milk including soy, oat, almond. JUSTUS Gibbs documented in this encounter Plan of Treatment Upcoming Encounters Date Type Department Care Team (Late st Contact Info) Description 08/18/2024 11:00 AM EDT Hospital Encounter Non-Invasive [place] [address] Arrived 02/22/2025 1:30 PM EDT Appointment Hematology and Oncology at [place] [address] 02/22/2025 2:30 PM EDT Office Visit Hematology and Oncology at [place] [phone] Ellis Childers MD [facility] [place] [address] Felicita Landa APRN [facility] [place] [address] documented as of this encounter Visit Diagnoses Not on filedocumented in this encounter Care Teams Slag Worker Relationship Specialty Start Date End Date Radha Mckeon MD [address] [place] [address] PCP - General 09/23/10 documented as of this encounter
--- OUTSIDE RECORDS SUMMARY | 2024-07-24 17:24 | XMS_ITS | Encounter Summary ---
Author Organization [facility] [place] [address] Care Team Providers Care Dance Critic Name Role Phone Radha Mckeon MD Primary Care Provider [phone] Reason for Referral * Consultation (Routine) - Closed Specialty Diagnoses / Procedures Referred By Becki guillory Referred To Contact Hematology and Oncology Diagnoses Idiopathic thrombocytopenic purpura (ITP) Rey Clayton MD [facility] [place] [address] [facility] [address] [place] [address] Referral ID Status Reason Start Date Expiration Date V isits Requested Visits Authorized [id number] Closed Consult, Test & Treat 03/16/2022 03/16/2023 1 1 Encounter Details Date Type Department Care Team (Late st Contact Info) Description 03/16/2022 Orders Only [place] [address] Rey Clayton MD [facility] [place] [address] Immune thrombocytopenia; Idiopathic thrombocytopenic purpura (ITP) Social History Tobacco Use Types Packs/Day Years [...] Progress Notes * Nicole Persaud RN - 03/16/2022 1:35 PM EDT Referral to Hematology for ITP, pre op patient per Dr. Clayton. documented in this encounter Plan of Treatment Upcoming Encounters Date Type Department Care Team (Late st Contact Info) Description 08/18/2024 11:00 AM EDT Hospital Encounter Non-Invasive [place] [address] Arrived 02/22/2025 1:30 PM EDT Appointment Hematology and Oncology at [place] [address] 02/22/2025 2:30 PM EDT Office Visit Hematology and Oncology at [place] [address] Ellis Childers MD [facility] [address] [place] [address] Felicita Landa APRN [facility] [address] [place] [address] Scheduled Referrals Name Type Priority Associated Diagnoses Orde r Schedule Referral to Hematology and Oncology Outpatient Referral Routine Idiopathic thrombocytopenic purpura (ITP) Ordered: 03/16/2022 documented as of this encounter Visit Diagnoses Diagnosis Immune thrombocytopenia Other secondary thrombocytopenia Idiopathic thrombocytopenic purpura (ITP) Immune thrombocytopenic purpura documented in this encounter Care Teams Dance Critic Relationship Specialty Start Date End Date Radha Mckeon MD [address] [place] [address] PCP - General 09/23/10 documented as of this encounter
--- OUTSIDE RECORDS SUMMARY | 2024-07-24 17:24 | XMS_ITS | Encounter Summary ---
Author Organization [facility] [place] [address] Care Team Providers Care Lens Finisher Name Role Phone Radha Mckeon MD Primary Care Provider [phone] Encounter Details Date Type Department Care Team (Late st Contact Info) Description 12/01/2021 Orders [place] [address] Sukhjinder Jauregui MD [facility] [place] [address] Status post revision of total knee replacement, right Social History Tobacco Use Types Packs/Day Years [...] AM EDT Hospital Encounter Non-Invasive Cardiology [place] [facility] [address] Arrived 02/22/2025 1:30 PM EDT Appointment Hematology [place] [address] 02/22/2025 2:30 PM EDT Office Visit Hematology [place] [phone] Ellis Childers MD [facility] [address] [place] [address] Felicita Landa APRN [facility] [place] [address] documented as of this encounter Results * XR Knee 1-2 Views Right (Generic) (01/05/2022 3:28 PM EST) Anatomical Region Laterality Modality Knee Right Digital Radiogra phy Impressions 01/05/2022 4:04 PM EST Stable simple lucency subjacent to the anterior tibial tray. Stable exam. Thank you for letting us participate in the care of this patient. ??If you are a health care provider and have any questions regarding this report, please contact the number below. ??For patients who have questions please contact the health personal care aid that requested your imaging first. ? Narrative 01/05/2022 4:04 PM EST EXAMINATION: XR KNEE 1-2 VIEWS RIGHT (GENERIC) CLINICAL HISTORY: XR RIGHT TKA REV 11/15/19 TECHNIQUE: 2 views RIGHT knee COMPARISON: December 02, 2020 FINDINGS: Persistent small right suprapatellar effusion. Right total knee arthroplasty remains satisfactorily position without periprosthetic fracture nor new lucency. Persistent thin lucency subjacent to the anterior tibial tray. Procedure Note Vandana Elizabeth MD - 01/05/2022 EXAMINATION: XR KNEE 1-2 VIEWS RIGHT (GENERIC) CLINICAL HISTORY: XR RIGHT TKA REV 11/15/19 TECHNIQUE: 2 views RIGHT knee COMPARISON: December 02, 2020 FINDINGS: Persistent small right suprapatellar effusion. Right total kneearthroplasty remains satisfactorily position without periprosthetic fracture nor newlucency. Persistent thin lucency subjacent to the anterior tibial tray. IMPRESSION Stable simple lucency subjacent to the anterior tibial tray. Stableexam. Thank you for letting us participate in the care of this patient. If youare a health care provider and have any questions regarding this report,please contact the number below. For patients who have questions please contactthe health personal care aid that requested your imaging first. 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
--- OUTSIDE RECORDS SUMMARY | 2024-07-24 17:24 | XMS_ITS | Encounter Summary ---
Author Organization [facility] [place] [address] Care Team Providers Care Pickle Maker Name Role Phone Radha Mckeon MD Primary Care Provider [phone] Reason for Referral * Occupational Therapy (Routine) - Closed Specialty Diagnoses / Procedures Referred By Becki guillory Referred To Contact Diagnoses Trigger middle finger of right hand Jovan Duong MD [facility] [place] [address] Rehab, [address] [address] Referral ID Status Reason Start Date Expiration Date V isits Requested Visits Authorized [id number] Closed Evaluate and Treat 06/10/2021 12/07/2021 12 12 Reason for Visit * Reason Onset Date Comments Physical Therapy 06/09/2021 Encounter Details Date Type Department Care Team (Late st Contact Info) Description 06/09/2021 Telephone [place] [id number] Jovan Duong MD [facility] [place] [address] Physical Therapy Social History Tobacco Use Types Packs/Day Years [...] encounter Miscellaneous Notes * Addendum Note - Carline Pena RN - 06/10/2021 10:56 AM EDTAddended by: CARLINE PENA on: 06/10/2021 10:56 AM Modules accepted: Orders * Telephone Encounter - Carline Pena RN - 06/10/2021 10:49 AM EDT Sherita from [facility] rehab calls stating she received an order for PT sent with no instructions. She also states therapy for a trigger finger should be OT not PT. Orders rewritten and faxed as requested * Telephone Encounter - Al Mishra - 06/10/2021 8:22 AM EDT I have created a PT referral and faxed it to [facility] per patients request. All questions and concerns have been addressed. * Telephone Encounter - Radha Heard - 06/09/2021 3:38 PM EDT Pt called today to alert Dr. Duong that he continues to have problems follow surgery on 05/15/2021.At Dr. Duong's instruction he is calling to request a PT order be sent to: [facility] in [facility]. documented in this encounter Plan of Treatment Upcoming Encounters Date Type Department Care Team (Late st Contact Info) Description 08/18/2024 11:00 AM EDT Hospital Encounter [place] [address] Arrived 02/22/2025 1:30 PM EDT Appointment Hematology [place] [phone] 02/22/2025 2:30 PM EDT Office Visit Hematology [place] [address] Ellis Childers MD [facility] [place] [address] Felicita Landa APRN [facility] [address] [place] [address] Scheduled Referrals Name Type Priority Associated Diagnoses Order Schedule Referral to Occupational Therapy Outpatient Referral Routine Trigger middle finger of right hand Ordered: 06/10/2021 documented as of this encounter Visit Diagnoses Diagnosis Trigger middle finger of right hand Trigger finger (acquired) documented in this encounter Care Teams Pickle Maker Relationship Specialty Start Date End Date Radha Mckeon MD [address] [place] [address] PCP - General 09/23/10 documented as of this encounter
--- OUTSIDE RECORDS SUMMARY | 2024-07-24 17:24 | XMS_ITS | Encounter Summary ---
Author Organization [facility] [place] [address] Care Team Providers Care Consumer Experience Consultant Name Role Phone Radha Mckeon MD Primary Care Provider [phone] Encounter Details Date Type Department Care Team (Late st Contact Info) Description 05/28/2021 Telephone [facility] [place] [phone] Tracy Calderon, RN Social History Tobacco Use Types Packs/Day [...] encounter Miscellaneous Notes * Telephone Encounter - Tracy Calderon, RN - 05/28/2021 12:09 PM EDT I reached out to Dr. Duong's office this afternoon and spoke to one of the staff there to request the hema Gan's appointment earlier with Dr. Duong's . Malik is currently scheculed to see Dr. Faustin 05/30/21 at 2:30 and then is scheduled to arrive for a procedure with Dr. Robles at 2:45. Per a message between myself and Dr. Duong,: What time is his injection with you scheduled for 05/30? ??He's scheduled to see me that same day 2:30pm. ??We could move him earlier on that day if needed for me to just peek at his incision site before injection Per my conversation, staff will verify with Dr. Duong that it is alright to change patients appointment and reschedule him earlier in the day. I spoke with Malik to let him know that as of right now he is still scheduled for his appointment with Dr. Duong at 2:30 then he will come here for his procedure right afterward. I also discussed with him positioning during the procedure, post procedure care and recovery. Patient's is having surgery on her shoulder on 05/29/21 and Malik inquired how he will be able to helpin her recovery. I informed Malik that he is going to want to take it easy and do no heavy lifting for several days post injection. We also discussed the use of IV Anxiolysis during procedure and Malik would very much like to have this done. TORREY Lock documented in this encounter Plan of Treatment Upcoming Encounters Date Type Department Care Team (Late st Contact Info) Description 08/18/2024 11:00 AM EDT Hospital Encounter [place] [address] Arrived 02/22/2025 1:30 PM EDT Appointment Hematology [place] [address] 02/22/2025 2:30 PM EDT Office Visit Hematology [place] [phone] Ellis Childers MD [facility] [place] [address] Felicita Landa APRN [facility] [place] [address] documented as of this encounter Visit Diagnoses Not on filedocumented in this encounter Care Teams Consumer Experience Consultant Relationship Specialty Start Date End Date Radha Mckeon MD [address] [place] [address] PCP - General 09/23/10 documented as of this encounter
--- OUTSIDE RECORDS SUMMARY | 2024-07-24 17:24 | XMS_ITS | Encounter Summary ---
[place] [address] Care Team Providers Care Supervisor Carbon Paper Coating Name Role Phone Radha Mckeon MD Primary Care Provider [phone] Reason for Visit * Reason Onset Date Comments Pre Procedure Call 01/05/2022 Cervical haley ar fitting, Preop education, opioid management; non opioid pain mgmt Encounter Details Date Type Department Care Team (Late st Contact Info) Description 01/05/2022 Telephone [place] [address] Maricarmen Mcgee RN Pre Procedure Call (Cervical collar fitting, Preop education, opioid management; non opioid pain mgmt) Social History Tobacco Use Types Packs/Day Years [...] Telephone Encounter - Maricarmen Mcgee RN - 01/05/2022 3:31 PM EST Met with today following the surgical evaluation for purpose of providing pre and post operative instructions and to plan for any pre/post- operative discharge needs. Pt is in the process of arranging a ACDF C4-C6 with Dr Clayton on 03/17/22 Collar Info: Fit patient for Nenana J collar; Size needed: Nenana J 300 Reviewed expectations re collar provision and use postoperatively. Provided education & reviewed importance of daily skin assessment, and pad changes as needed. Demonstrated pad changes with pt; advising if he could have his or another person help that would be of value. Pt's has somehealth issues- so her availability to help is somewhat limited- Anticipate that pt may need VNA nursing services post discharge. Pre-op Medication Holds: Advised pt of need to hold anticoagulants, NSAIDs, ASA products, and Fish Oil for ~10 days preoperatively. Reviewed medication list. Pt agreed to hold Fish Oil as instructed. Pt understands not to initiate any of the other medications requiring preop hold within 10 days of surgery. re Xaralto hold: is noted to be taking Xarlto 20 mg as prescribed by his PCP, Dr Radha Mckeon. Pt advised to continue to take anticoagulant as ordered until he is cleared to hold the anticoagulant by his prescribning provider. 01/14/22 Received Fax Back Form from PCP authorizing Mr Machado to hold his Xarlto for 3 days preop.Hold form scanned into edh by OR exterminator helper 03/16/22 Call placed to pt, left him a detailed VM message advising him that he was cleared by his PCP to hld his Xarlto for 3 days prep Requested he take it as prescribed through and including 03/13; To hold the Xarlto on March 14, and , in preparation for his surgery 03/17. I explained thatI anticipated his PCP would also review this at his pending appt with her. Left spine nsg office call back #, encouraging him to call w any questions. 03/23/22 Second call placed to pt ; left detailed VM message at home # reminding pt of the 3 day Zaralto hold authorization. Reviewed dates of hold in message and encuraged pt t call spein nsg office with any questions or concerns. Re Acute Post-Op Pain Mgmt and Chronic Pain Mgmt: Opioid Risks and Pain Management: Reviewed salient points within Acute Opioid Therapy Informed Consent. denies any questions or concerns. Offered pt a copy of consent for home reference. Signed Consent Form passed to the OR exterminator helper for scanning. Reviewed with that he is likely to experience some incisional pain as well as throat discomfort and difficulty swallowing postoperatively. Reviewed some strategies to ease swallowing during the acute recovery period. Discussed with pt expectations re postoperative incisional and extremity pain, to include expectations re potential new or increased N/T. Explained to pt that a commn areato experience pain post op that is often not present preop is his intrascapular area. Exlained thatregular ice application, sleeping allan recliner and being careful not to tense his shoulders and assume a guarded posture can reduce intrascapular discomfort. Reviewed in detail non-opioid pain mgmt strategies that should be put in place postoperatively to minimize opioid use. Strategies discussed included: rest and relaxation, activity modification, regular repositioning, regular Acetaminophen use ( not to exceed 3000 mg daily), hourly ice application when awake for local analgesia/inflammation. Explained that the non-opioid pain mgmt strategies are intended to be the first line of treatment to assist with his postop pain. Instructed to Initiate the regular use of ice and OTC medication immediately upon return home, even if this was notdocumented in his discharge instructions. Encouraged pt to call if he has any questions re post op pain mgmt. Reinforced with pt that he should contiue the non- opioid pain mgmt treatments for as long as he is requiring any opioids; that the opioid is the first treatment that should be discontinued. Because pt is taking chronic opioids through his PCP, for pain that includes his LB which will notbe resolved with his cervical spine surgery; pt advised that we would be working closely with his PCP with the intent to reduce post-op pain medication per our standard practice wk to wk. Explained that once we connect with his PCP re plans for opioid mgmt postop we will have a more defined plan repain mgmt. Pt has planned appt w PCP 01/20. See below for documentation re communications w PCP. 01/21/22 FU call placed to [facility] Spoke to Lidia in FU to a previus communication with Adi. [facility] been advised of spine surgical plans; Advised that we would provide acute postoperative pain mgmt per our routine; typical doses.and time frame following surgery ( typically following this surgery ~3 wks); that if chronic pain and hyperalgesia resulted in higher doses or extended period of opioid pain mgmt, that we would be lookingto transition pt back to Dr Mckeon for ongoing opioid needs. Lidia reported that Kalpana had provided Dr Mckeon with a message re out interest; and that Dr Mckeon had signed of. From Sues' perspectiveand experience; she indicated this is as Good as a confirmation that Dr Mckeon is on board. Lidia also confirmed that Mr Machado is very Responsible with hs opioid use; that they have no record of concerns; No documentation that would indicated compliance issued, over use, or escalation. Lidia referenced that she would not anticipate any difficulties with post op pain mgmt based on their prescribinghx. Plan post Op: Dr Clayton to provide typical acute post op pain mgmt for ~ 3 wks as needed, 4 max. Following acute post-perative period; plan to transition ongoing chronic opioid pain mgmt needs to PCP. Provided pt w verbal instructions and general expectations re prescription refill practices/timing. Advised that any opioid pain medication that is prescribed is to be used to supplement the non-opioid methods. Advised pt that he is to take the least amt of opioid possible, and the expectation is that he will reduce use each wk, earlier as able, as the postoperative pain subsides. Advised pt that he should never exceed the prescribed amt without obtaining authorization from the prescribing provider. See PDMP query below. Reviewed current and historical opioid use. is noted to be on opioids currently as prescribed by Dr Radha Mckeon Opioid Contract: w Dr Radha Mckeon Reviewed with pt to make efforts to minimize opioid use preop as this will aid post-op pain management. Pt reports not having a significant supply of his oxycodone 15mg tablets left and will seek refill from PCP if needed preop; Pt states he uses the medication very sparingly- not daily. Acute Opioid Prescribing: Opioid PDMP 01/05/2022 11/09/2019 [place] PDMP Query Date 01/05/2022 11/09/2019 Comment 01/05/22 1 yr PDMP query performed; noted two oxycodone scripts for 15 mg tablets as ordered by his PCP. Pt reports chronic sporadic (not daily) opioid use for numerous pain complaints; longstanding pain source is his low back which will not be addressed with this surgery. - [place] PDMP Query Date - 11/09/2019 [place] PDMP Query Date - 11/09/2019 No flowsheet data found. Acute Opioid Specific Questions 01/05/2022 Date Acute Consent signed 01/05/2022 Comment 01/05/22 acute opioid consent signed; pt familiar with content as he is has taken opioids fora chronic period of time through his PCP. Pt is contracted with his PCP. Comment Pt recreational use of drugs was decades ago. Is currently contracted through his PCP for sporadic opioid use-. PT WAS ADVISED THAT WE WOULD REACH OUT TO HIS CONTRACTED PROVIDER TO INFORM HEROF SURGICAL PLANS; AND OUR INTENT TO PROVIDE OPIOID PAIN MGMT FOR A DEFINED POST-OPERATIVE PERIOD (max 4 wks). Explained that at the end of that time period we would expect that his PCP would assumeany ongoing chronic Opioid needs. Considered options for non-pharmacological modalities and non-opioid therapy? Yes Comment 01/05/22 Reviewed in detail non-opioid pain mgmt strategies to include repositioning, ice (anterior and posteror) collar use, sleepng in recliner, tylenol; relaxation. Reviewed appropriate opioid use; least amt, for med-severe pain within the ordered parameters. No overuse; no setting clock at night. Some recent data might be hidden Activity: Reviewed with our expectations re activity postoperatively, to include use of good body mechanics, to relax when moving rather than tensing/guarding, and our expectations re progressive walking upon return home. Advised that he would not be able to drive while taking opioid pain medication and while wearing the hard cervical collar. Home Support/Services Expected: Discussed home environment and support available following discharge. Pt's home include bed and bath on ground floor; Pt has access to a Cane, walker, and shower chair. Explained to pt that he might find use of shower chair useful but otherwise will have no need for a special DME other than hard cervical collar w/ extra set of pads which oral be provided during his hospital stay. Patient has very limited home support; He reports his significant other is on home O2 and has health needs of her own so he does not envision being able to rely on her for postoperative support. Pt denies having other family or friends to call on for assistance. Pt also referenced some concerns with transportation to and from hospital for surgery and initial HCK. Pt is going to check in with fellow sikh members but is interested in understanding what other assistance mig be available n his community. Informed pt that I would ask Anais zane KLINE to call him. IB message sent to Kareem advising her of pt's circumstances and anticipated need for transportation assistance and VNA services postop. 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 Postoperative PT Evaluation: Given provider preference, plans for multi-level cervical fusion, and potential VNA services, a coordinated postop PT evaluation was not arranged. 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 A copy of [facility]ine Center Pre/Post-Operative Reference sheet provided to pt; reviewed the content. Encouraged to review these instructions prior to coming into the hospital and then again upon return home so that the instructions will be recalled easily. verbalized understanding of the ipreoperative instructions reviewed.. was given the contact information for the Spine Center Nursing staff; he was encouraged to call pre or postoperatively with any questions or concerns. 01/09/22 4:30 Optimization letter initiated and passed to OR exterminator helper to complete and process. 01/09/22 4:[address] Radha Mckeon; office closed; Left VM message requesting return call Upon return call need to advise prescribing provider of 03/17/22 surgical plans and determine her willingness to assist with postoperative opioid needs given pt's h/o chronic pain and her current involvememnt in opioid pain mgmt. Also to advise PCP that we need clearance for him to hold his Xarlto 20 mg for 3 days preop' anticoag hold form faxed to her office 01/09/22 (fax # [phone]) 01/13/22 Received call from Adi at [facility] advising that pt has an appt with Dr Radha Mckeon on 01/20/21; that at that appt, Dr Mckeon will address the preop xaralto hold request and post op opioid transition request. Provided Fax # requesting she fax us office note for reference. documented in this encounter Plan of Treatment Upcoming Encounters Date Type Department Care Team (Late st Contact Info) Description 08/18/2024 11:00 AM EDT Hospital Encounter Non[place] [address] Arrived 02/22/2025 1:30 PM EDT Appointment Hematology [place] [address] 02/22/2025 2:30 PM EDT Office Visit Hematology [place] [address] Ellis Childers MD [facility] [address] [place] [address] Felicita Landa APRN [facility] [address] [place] [address] documented as of this encounter Visit Diagnoses Not on filedocumented in this encounter Care Teams Supervisor Carbon Paper Coating Relationship Specialty Start Date End Date Radha Mckeon MD [address] [place] [address] PCP - General 09/23/10 documented as of this encounter
--- OUTSIDE RECORDS SUMMARY | 2024-07-24 17:24 | XMS_ITS | Encounter Summary ---
[place] [address] Care Team Providers Care Log Deckman Name Role Phone Radha Mckeon MD Primary Care Provider [phone] Encounter Details Date Type Department Care Team (Latest Contact Info) Description 01/05/2022 Travel Social History Tobacco Use Types Packs/Day [...] EDT Hospital Encounter Non-Invasive [place] [address] Arrived 02/22/2025 1:30 PM EDT Appointment Hematology [place] [address] 02/22/2025 2:30 PM EDT Office Visit Hematology [place] [address] Ellis Childers MD [facility] [address] [place] [address] Felicita Landa APRN [facility] [place] [address] documented as of this encounter Visit Diagnoses Not on filedocumented in this encounter Care Teams Log Deckman Relationship Specialty Start Date End Date Radha Mckeon MD [address] [place] [address] PCP - General 09/23/10 documented as of this encounter
--- OUTSIDE RECORDS SUMMARY | 2024-07-24 17:24 | XMS_ITS | Encounter Summary ---
Author Organization [facility] [place] [address] Care Team Providers Care Energy Specialist Name Role Phone Radha Mckeon MD Primary Care Provider [phone] Encounter Details Date Type Department Care Team (Late st Contact Info) Description 06/10/2021 Orders [place] [address] Jovan Alexandra MD [facility] [place] [address] Trigger middle finger of right hand; s/p right long finger A1 kayla release for trigger finger 05/15/21 (Dr Alexandra) Social History Tobacco Use Types Packs/Day Years [...] encounter Miscellaneous Notes * Addendum Note - Jovan Alexandra MD - 06/10/2021 8:12 AM EDTAddended by: JOVAN ALEXANDRA on: 10/20/2021 07:24 AM Modules accepted: Orders documented in this encounter Plan of Treatment Upcoming Encounters Date Type Department Care Team (Late st Contact Info) Description 08/18/2024 11:00 AM EDT Hospital Encounter Non[place] [address] Arrived 02/22/2025 1:30 PM EDT Appointment Hematology and Oncology at [place] [address] 02/22/2025 2:30 PM EDT Office Visit Hematology [place] [address] Ellis Childers MD [facility] [address] [place] [address] Felicita Landa APRN [facility] [address] [place] [address] documented as of this encounter Visit Diagnoses Diagnosis Trigger middle finger of right hand Trigger finger (acquired) s/p right long finger A1 kayla release for trigger finger 05/15/21 (Dr Alexandra) documented in this encounter Care Teams Energy Specialist Relationship Specialty Start Date End Date Radha Mckeon MD [address] [place] [address] PCP - General 09/23/10 documented as of this encounter
--- OUTSIDE RECORDS SUMMARY | 2024-07-24 17:24 | XMS_ITS | Encounter Summary ---
Author Organization [facility] [place] [address] Care Team Providers Care Supervisor Livestock Yard Name Role Phone Radha Mckeon MD Primary Care Provider [phone] Encounter Details Date Type Department Care Team (Late st Contact Info) Description 05/23/2021 Telephone [place] [id number] Tracy Calderon, RN Social History Tobacco Use [...] Miscellaneous Notes * Telephone Encounter - Tracy Calderon RN - 05/27/2021 1:55 PM EDT I received an in basket message from Dr. Duong (orthopedic surgeon) regarding this patient: Jovan Duong MD sent to Tracy Calderon RN [facility], 2 weeks post op should usually be fine for steroid injection given it is a small wound. ??However it would be nice for me to just see him before the steroid, make sure no infection or healing issues,especially as I think he may be on blood thinners. What time is his injection with you scheduled for 05/30? ??He's scheduled to see me that same day 2:30pm. ??We could move him earlier on that day if needed for me to just peek at his incision site before injection. Thanks again for reaching out, Jovan Duong MD, MPH Patient's procedure had originally been cancelled with Dr. Robles secondary to surgery, but based on the above response from Dr. Duong, we were able to reschedule him for the same date 05/30/21 and time. This RN will reach out to Dr. Duong's office to see if they are able to see Malik approximately a half hour early. TORREY Lock documented in this encounter Plan of Treatment Upcoming Encounters Date Type Department Care Team (Late st Contact Info) Description 08/18/2024 11:00 AM EDT Hospital Encounter [place] [address] Arrived 02/22/2025 1:30 PM EDT Appointment Hematology and Oncology at [place] [phone] 02/22/2025 2:30 PM EDT Office Visit Hematology and Oncology at [place] [phone] Ellis Childers MD [facility] [address] [place] [address] Felicita Landa APRN [facility] [address] [place]EMATOLOGY [place] [address] documented as of this encounter Visit Diagnoses Not on filedocumented in this encounter Care Teams Supervisor Livestock Yard Relationship Specialty Start Date End Date Radha Mckeon MD [address] [place] [address] PCP - General 09/23/10 documented as of this encounter
--- OUTSIDE RECORDS SUMMARY | 2024-07-24 17:24 | XMS_ITS | Encounter Summary ---
Author [place] [address] Care Team Providers Care Sapphire Stylus Grinder Name Role Phone Radha Mckeon MD Primary Care Provider [phone] Encounter Details Date Type Department Care Team (Late st Contact Info) Description 05/30/2021 3:15 PM EDT - 05/30/2021 4:00 PM EDT [place] [address] Ruthann Simmons V [facility] [place] [address] INJECTION, EPIDURAL, CERVICAL OR THORACIC, WITH IMAGING GUIDANCE (WRVU 1.95) Social History Tobacco Use Types Packs/Day Years [...] Sign Reading Time Taken Comments Blood Pressure 213/89 05/30/2021 3:56 PM EDT Pulse - - Temperature - - Respiratory Rate 18 05/30/2021 3:56 PM EDT Oxygen Saturation 98% 05/30/2021 3:56 PM EDT Inhaled Oxygen Concentration - - Weight 79.4 kg (175 lb) 05/30/2021 3:00 PM EDT Height 182.9 cm (6' 0.01) 05/30/2021 3:00 PM ED T Body Mass Index 23.73 05/30/2021 3:00 PM EDT documented in this encounter Discharge Instructions * Discharge Instructions* Naz Hanley RN - 05/30/2021 4:00 PM EDT Pain Management Center Discharge Instructions: You were seen today by Surgeon(s): Ruthann Simmons DO Krause, Jeffrey A, MD The following was performed: Procedure(s) (LRB): INJECTION, EPIDURAL, CERVICAL OR THORACIC, WITH IMAGING GUIDANCE (WRVU 1.95) (N/A) It is normal that the injection site will be sore for up to 48 hours. [x] You may also experience mild stiffness in the joint near the injection site. You may resume your normal activities: tomorrow. You may shower today. DO NOT tub bathe, use whirlpools, hot tubs or pool therapy for 2 days. RemoveBand-Aid(s) later today/tomorrow. Do not drive until tomorrow. Use caution walking/climbing stairs as you may be unsteady on your feet. You may use your usual medications, including pain medications, as directed, unless otherwise instructed. You may use an ice pack as needed for the first 24 hours, on for 20 minutes then off for 20 minutes. Do not apply heat today. [x] You received medication through an intravenous line to lessen the anxiety/pain of your procedure. DO NOT operate heavy or dangerous equipment/tools, or sign important papers today. Attempt to empty your bladder 4-6 hours after your procedure. You received the following medications: Medications Given During Procedure Date/Time Order Dose Route Action {\field{\*\fldinst HYPERLINK ecmd:ord?ib=[id number]}{\fldrslt \cf18 05/30/2021 1559}} dexamethasone (PF) (Decadron) (10 mg/mL) injection 15 mg Epidural Given {\field{\*\fldinst HYPERLINK ecmd:ord?kd=[id number]}{\fldrslt \18 05/30/2021 1558}} iohexoL (Omnipaque) (240 mg/mL) injection solution 1 mL Epidural Given {\field{\*\fldinst HYPERLINK ecmd:ord?xw=[id number]}{\fldrslt \18 05/30/2021 1556}} midazolam (pf) (Versed) (1 mg/mL) injection 1 mg Intravenous Given {\field{\*\fldinst HYPERLINK ecmd:ord?gy=[id number]}{\fldrslt \18 05/30/2021 1550}} midazolam (pf) (Versed) (1 mg/mL) injection 1 mg Intravenous Given During regular business hours, please phone the Pain Management Center at with any questions or if the following or other troubling symptoms develop: 1) Prolonged dizziness or weakness (more than 1 day). 2) Localized swelling, redness or drainage at the injection site(s). 3) Temperature of 101 degrees that lasts for more than 4 hours. After 5 PM or on weekends, call and ask for Pain Clinic provider on-call. If you are unable to reach the Pain Management Center and have a complication, please call your Primary Care Provider or proceed to your local emergency department. Naz Hanley RN Special instructions documented in this encounter Medications at Time of Discharge Medication Sig Dispensed Refills Start Date End Date acetaminophen (Tylenol) 500 mg tablet as needed. 01/16/2017 lidocaine-prilocaine (EMLA) Cream as needed. 09/16/2020 polyethylene [...] QD 04/23/2020 fluticasone propionate (FLONASE) 50 mcg/actuation [place], Suspension INSTILL 1SPRAY IN EACH NOSTRIL TWICE [...] as needed per package insert. 05/15/2021 05/20/2022 acetaminophen (Tylenol) 500 mg Tablet Take 2 tablets by mouth every 8 hours. Take as directed around the clock for ten days after your surgery. After that you can take Tylenol as needed per package insert. 05/15/2021 06/25/2021 pregabalin (LYRICA) 100 mg Capsule Take 1 capsule by mouth 2 times daily. 02/11/2021 11/29/2023 metoprolol succinate XL (Toprol-XL) 100 mg Tablet Sustained Release 24 hrIndications:Paroxysma l atrial fibrillation Take 1.5 tablets by mouth daily. 135 tablet 1 02/04/2021 08/01/2021 flu vacc [id number],65yr up,/PF (FluZONE HighDose Quad 20-21 PF) 240 mcg/0.7 mL Syringe seasonal 07/23/202004/01 Xarelto 20 mg Tablet TK 1 T [...] daily. 05/20/2022 documented as of this encounter H&P Notes * Santosh Monson MD - 05/30/2021 7:20 AM EDT Patient Name: Malik Machado Patient Age: 71 y.o. Birthdate: 1950 Admit date: 05/30/2021 Attending Physician: Ruthann Crockett DO PREPROCEDURE HISTORY AND PHYSICAL Date of Visit: May 30, 2021 Chief Complaint: Neck and left arm pain HPI: Malik Machado is a 71 y.o. male who presents today for KATIE C4-6 with a diagnosis of radiculopathyof cervical reion resulting in symptoms of neck and left arm pain. The history is obtained from the patient, and I have reviewed medical records provided by the referring physician and located in the electronic medical record to fill in gaps in the patient's recollection of events, treatments and outcomes. LOCATION: Neck and left arm. PAIN LEVEL AT REST 5/10 PAST MEDICAL HISTORY: Past Medical History: Diagnosis Date ??? Antiplatelet or antithrombotic long-term use apixaban ??? Chronic back pain greater than 3 months duration ??? Chronic pain spine, has had 3 spine surgeries ??? High blood pressure controlled with medication ??? Hypothyroid treated with medication ??? Irregular heart beat afib ??? 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 Migraine ??? Postoperative anemia due to acute blood loss 11/17/2019 ??? Thrombocytopenia - chronic 12/16/2012 ??? Thrombocytopenia - chronic 12/16/2012 There are no medical history contraindications to this procedure. PAST SURGICAL HISTORY: Past Surgical History: Procedure Laterality Date ??? [...] CURVED Procedure Date: 01/14/2010 ??? JOINT REPLACEMENT [id number] ??? PACEMAKER IMPLANT loop recorder ??? PRO INCISE FINGER TENDON SHEATH Right 05/15/2021 TENDON SHEATH INCISION (TRIGGER FINGER) (WRVU 3.11) performed by Jovan Duong MD at [facility] MAIN OR ??? PRO REVISE KNEE JOINT REPLACE, ALL PARTS Right 11/15/2019 @TOTAL KNEE REVISION ARTHROPLASTY, COMPLETE (WRVU 27.11) performed by Sukhjinder Jauregui MD at [facility] MAIN OR ??? XR JOINT ASPIRATION - LARGE JOINT RIGHT Right 01/02/2019 XR Fluoro Guided Joint Aspiration Large Right 01/02/2019 [facility] RAD XRAY There are no past surgical contraindications to this procedure ALLERGIES: Zolpidem, Amitriptyline, Atorvastatin, and Flecainide There are no allergic contraindications to this procedure. MEDICATIONS: No current facility-administered medications for this encounter. Pt on Xarelto, stopped 05/27/21 FAMILY HISTORY: Family History Problem Relation Age of Onset ??? Heart Disease Mother ??? Heart Disease Father ??? Cancer Brother 58 panceratic SOCIAL HISTORY: Social History Socioeconomic History ??? Marital status: [...] since quittin.5 ??? Smokeless tobacco: Never Used Vaping Use ??? Vaping Use: Never used Substance and Sexual Activity ??? Alcohol use: No ??? Drug use: Never ??? Sexual activity: Yes Other Topics Concern ??? Not on file Social History Narrative ??? Not on file Social Determinants of Health Financial Resource Strain: ??? Difficulty of Paying Living Expenses: Food Insecurity: ??? Worried About Running Out of Food in the Last Year: ??? Ran Out of Food in the Last Year: Transportation Needs: ??? Lack of Transportation (Medical): ??? Lack of Transportation (Non-Medical): Physical Activity: ??? Days of Exercise per Week: ??? Minutes of Exercise per Session: There are no social history contraindications to this procedure. ROS: Review of Systems Constitutional: Negative for fever, chills, or recent infection. Respiratory: Negative for shortness of breath. Cardiovascular: Negative for chest pain. Musculoskeletal: Positive for neck and left arm pain. Psychiatric/Behavioral: Negative for agitation and behavioral problems. PHYSICAL EXAM: BP 166/82 Resp 21 Ht 182.9 cm (6' 0.01) Wt 79.4 kg (175 lb) SpO2 99% BMI 23.73 kg/m?? Physical Exam Constitutional: He appears well-developed and well-nourished. No distress. Cardiovascular: Normal heart rate. Pulmonary/Chest: Effort normal and breath sounds normal. Skin: He is not diaphoretic. This is no rash, apparent infection, or other abnormality to the area of the proposed injection. There are no physical examination findings which would preclude this procedure. ASSESSMENT: Radiculopathy of cervical region PLAN: Proceed with procedure as planned. Thank you for the opportunity to participate in Malik Machado's care. Please feel free to contact me with any questions. Sincerely, Santosh Monson MD Pain Medicine Fellow documented in this encounter Miscellaneous Notes * Op Note - Ruthann Simmons DO - 05/30/2021 3:51 PM EDT Pain Management Operative Note Patient Name: Malik Machado : [id number] MR#: [id number] Case Date: 05/30/2021 Surgeon: Surgeon(s) and Role: * Ruthann Simmons DO - Primary * Santosh Monson MD - Fellow Present on Admission: ??? Radiculopathy of cervical region Postoperative diagnosis: Same Procedure(s) (LRB): INJECTION, EPIDURAL, CERVICAL OR THORACIC, WITH IMAGING GUIDANCE (WRVU 1.95) (N/A) Procedure Note Cervical Interlaminar Epidural Steroid Injection Date of Service: 05/23/2021 Patient: Malik Machado Provider: RUTHANN SIMMONS DO Malik Machado has been referred to the Pain Management Center for cervical epidural steroid injection. A retrospective review of interlaminar cervical ESIs found that approximately two-thirds of patients with symptomatic cervical radiculopathy from disc herniation were able to avoid surgery for up to 1 year with treatment. Success rate was improved with earlier injection (< 100 days from diagnosis). Rolanda EL, Dana V, Jessica L, Demetris AN, Giuliano VALDEZ. Cervical epidural steroid injections for symptomatic disc herniations. J Spinal Disord Tech. 2006 March;19(3):183-6. Mr. Machado was interviewed and the medical record were reviewed. There were no medical, pharmacologic, radiographic or other structural contraindications to attempting fluoroscopically guided cervical interlaminar epidural steroid injection. Risks, potential side effects, indications, and potential benefits of the procedure were reviewed with Mr. Machado. Questions and concernswere addressed. After it was clear that the patient was fully informed about the procedure, the printed consent form was signed by the patient and myself. A standard time-out procedure was performed. The patient was placed in the prone position on the fluoroscopy table and automated blood pressure cuff as well as pulse oximeter was applied. The skin entry point for entering the epidural space by a midline C7-T1 interlaminar approach was identified under fluoroscopy and marked. The skin entry point was thoroughly cleaned with Chlorhexadine preparation and the skin was draped. Next a mixture of3 cc of 1% lidocaine was infiltrated into the area of the planned skin entry point and underlying subcutaneous tissues. Next an 18 gauge Tuohy needle was placed under fluoroscopic guidance and with loss of resistance technique into the epidural space utilizing multiple AP and 55 degree contralateral fluoroscopic views. Upon correct needle placement and loss of resistance, there were no paresthesiae or return of blood or CSF through the needle. Next 2cc of preservative-free Omnipaque 240 was injected with clear epidural spread in the A/P and oblique views. Next, a solution of 15 mg of preservative-free Dexamethasone mixed with 1ml of preservative-free normal saline was injected through with no unusual discomfort expressed by Mr. Machado. (48 cc of Omnipaque and 5 mg of Dexamethasone was wasted) Mr. Machado's vital signs were stable throughout the procedure and were as recorded in the docflowsheet by the nursing staff. If given, dosages of intravenous drugs for anxiolysis and analgesia were documented in MAR. Follow up plans and appointments were discussed with the Mr. Machado. Post procedure instruction was given as documented in nursing documentation and having met discharge criteria, he was discharged from the Pain Management Center. COMMENTS: Post-procedure pain level was 5/10. RUTHANN SIMMONS DO, MPH ABP-subspecialty board certification in Pain Medicine Attending Physician-Pain Management CC: Unknown None Radha Mckeon MD [address] [place] [address] documented in this encounter Plan of Treatment Upcoming Encounters Date Type Department Care Team (Late st Contact Info) Description 08/18/2024 11:00 AM EDT Hospital Encounter Non-[place] [address] Arrived 02/22/2025 1:30 PM EDT Appointment Hematology [place] [address] 02/22/2025 2:30 PM EDT Office Visit Hematology [place] [address] Ellis Childers MD [facility] HEMATOLOGY [place] [address] Felicita Landa APRN [facility] HEMATOLOGY [place] [address] documented as of this encounter Visit Diagnoses Not on filedocumented in this encounter Administered Medications Inactive Administered Medications - up to 3 most recent administrations Medication Order MAR Action Action Date Dose Rate Site dexamethasone (PF) (Decadron) (10 mg/mL) injection ONCE PRN, Starting on Wed05/30/21 at 1559, Until Wed05/30/21 at 1839, Intra-Operative (Intra-Procedure), Routine Given 05/30/2021 3:59 PM EDT 15 mg iohexoL (Omnipaque) (240 mg/mL) injection solution ONCE PRN, Starting on Wed05/30/21 at 1558, Until Wed05/30/21 at 1839, Intra-Operative (Intra-Procedure), Routine Given 05/30/2021 3:58 PM EDT 1 mL midazolam (pf) (Versed) (1 mg/mL) injection ONCE PRN, Starting on Wed05/30/21 at 1550, Until Wed05/30/21 at 1839, Intra-Operative (Intra-Procedure), Routine Given 05/30/2021 3:56 PM EDT 1 mg Given 05/30/2021 3:50 PM EDT 1 mg documented in this encounter Active and Recently Administered Medications Times are shown in EDT. Scheduled Medication Order 05/28/2021 05/29/2021 05/30/2021 midazolam (pf) (Versed) (1 mg/mL) injection 2 mg 2 mg, Intravenous, ONCE, 1 dose, On Wed05/30/21 at 1630, Routine 1630 (Due) PRN Medication Order 05/28/2021 05/29/2021 05/30/2021 dexamethasone (PF) (Decadron) (10 mg/mL) injection (CANCELED) ONCE PRN, Starting on Wed05/30/21 at 1559, Until Wed05/30/21 at 1839, Intra-Operative (Intra-Procedure), Routine 1559 (Given - Provid er: Ruthann Simmons V, DO - Comment: Cervical) iohexoL (Omnipaque) (240 mg/mL) injection solution (CANCELED) ONCE PRN, Starting on Wed05/30/21 at 1558, Until Wed05/30/21 at 1839, Intra-Operative (Intra-Procedure), Routine 1558 (Given - Provid er: Ruthann Simmons V, DO - Comment: Cervical) midazolam (pf) (Versed) (1 mg/mL) injection (CANCELED) ONCE PRN, Starting on Wed05/30/21 at 1550, Until Wed05/30/21 at 1839, Intra-Operative (Intra-Procedure), Routine 1550 (Given - Provid er: Naz Hanley RN)1556 (Given - Provider: Naz Hanley RN) documented in this encounter Care Teams Sapphire Stylus Grinder Relationship Specialty Start Date End Date Radha Mckeon MD [address] [place] [address] PCP - General 09/23/10 documented as of this encounter
--- OUTSIDE RECORDS SUMMARY | 2024-07-24 17:24 | XMS_ITS | Encounter Summary ---
Author Organization [facility] [address] Care Team Providers Care Mother Helper Name Role Phone Radha Mckeon MD Primary Care Provider [phone] Reason for Referral * Consultation (Routine) - Closed Specialty Diagnoses / Procedures Referred By Becki guillory Referred To Contact [facility] Diagnoses Chronic pain of right knee Status post right knee replacement Pain- Knee pain/ XR 01/05/22 in e[facility]/ ? injection *2019 FVE Sukhjinder Norwood MD [facility] [place] [address] [facility] [place] [address] Referral ID Status Reason Start Date Expiration Date V isits Requested Visits Authorized [id number] Closed Consult, Test & Treat 01/05/2022 01/05/2023 3 3 Reason for Visit * Reason Comments Follow-up R TKA REV 11/15/19 Encounter Details Date Type Department Care Team (Late st Contact Info) Description 01/05/2022 4:00 PM EST Office [place] [address] Sukhjinder Norwood MD [facility] [place] [address] Chronic pain of right knee; Status post right knee replacement Social History Tobacco Use Types Packs/Day Years [...] Time Taken Comments Blood Pressure 136/74 01/05/2022 4:05 PM EST copied from earlier appt Pulse 62 01/05/2022 4:05 PM EST Temperature - - Respiratory Rate - - Oxygen Saturation - - Inhaled Oxygen Concentration - - Weight 81.2 kg (179 lb) 01/05/2022 4:05 PM EST Height 180.3 cm (5' 11) 01/05/2022 4:0 5 PM EST Body Mass Index 24.97 01/05/2022 4:05 PM EST documented in this encounter Progress Notes * Sukhjinder Norwood MD - 01/05/2022 4:00 PM EST Arthroplasty/Orthopaedic History: 1.??Right TKA. Dr. Mi. 01/14/2010. 2. Right TKA Revision. Aseptic revision of the patella. Dr. Norwood. 11/15/2019 HPI: Malik Machado is a very pleasant 71 y.o. year-old male and is now 2 years post right total knee revision. The patient has been doing poorly. Knee still painful. Back is more painful s/p 3 back surgeries. Hurts to weight bear. Pain with bending. Pain is controlled without any medications usually. Occasional Tylenol. No fevers, chills, nausea, vomiting, or symptoms of infection. Malik has beenambulating with no assistive device. Was able to hike [employer] last summer. Has tried topical voltaren. Walking 3-4 miles a day while working. Planning on cervical spine surgery in next few weeks ROS: Denies: fever, chills, night sweats, nausea, or vomiting BP 136/74 Comment: copied from earlier appt Pulse 62 Ht 180.3 cm (5' 11) Wt 81.2 kg (179 lb) BMI 24.97 kg/m?? Physical Exam: Well-appearing male in no acute distress. Alert and Oriented x 3 and answers all questions appropriately. The incision is well healed, with no signs of infection. Post Op Right Knee Exam: Knee ROM: Extension:0 Flexion: 120 Alignment: 0-4 degrees Varus Stability: A/P Translation <5mm. Varus <5mm Valgus <5mm Extension La degrees or less Patella Tracking: Normal Pulses Palpable: Right PT: Yes Right DP:Yes Motor/Sensory: Distal Motor: Normal Distal Sensory: Normal Quadriceps Strength: 5 Diffusely tender over entire knee X-RAYS: Multiple radiographic views were obtained at my request and reviewed with the patient. X-rays show a well-placed prosthesis with no evidence of fracture, subsidence, loosening, or periprosthetic complication. Questionnaire Responses: [facility] Visit 01/05/2022 PROMIS-10 General Health Very Good PROMIS-10 Quality of Life Good PROMIS-10 Physical Health Good PROMIS-10 Mental Health Very Good PROMIS-10 Social Activity Very Good PROMIS-10 Everyday Activities Mostly PROMIS-10 Pain 8 PROMIS-10 Fatigue Moderate PROMIS-10 Social Roles Good PROMIS-10 Anxious or Depressed Sometimes PROMIS PHYSICAL HEALTH SCORE - PROMIS MENTAL HEALTH SCORE - KOOS JR Scores - Problems with surgical incision/wound after surgery - Problems with incision - Prescribed antibiotics - Caregiver after your surgical incision problem - Gone to ER since knee surgery - Where was ER located? - Date of ER visit - Reason for ER visit - Admitted to hospital since recent ortho surgery - Additional surgery on same body part - TKA Grade 7 Pain in other KNEE - Back pain at this moment Fairly severe Satisfaction with Treatment Somewhat satisfied Choose Same Treatment Again - [facility] Response 12/30/2020 KOOS JR Scores - OSWESTRY DISABILITY INDEX 42 (Severe disability) Spine [facility] Response 12/30/2020 Oswestry (RAYMUNDO) Score 42 (Severe disability) Neck (NDI) Score 44 (Moderate disability) KOOS JR Scores - ASSESSMENT/PLAN: Mr. Machado is a 71 y.o. year old male status post right total knee revision. Postoperative course complicated by persistent pain. Has had global pain in his knee replacement ever since it was initially done. He has never had relief from any intervention at this juncture. He cannottake NSAIDs due to chronic anticoagulation on Xarelto. He does take Tylenol and has tried Voltaren gel. He reports last summer being able to hike [employer] though the knee was painful and currently is back at work walking 3 to 4 miles a day. I outlined there may not be anything we can do froma structural standpoint to correct anything in his knee. His x-rays show well-positioned prosthesiswith no evidence of failure. At this juncture I did offer him a referral to the pain clinic for consideration of geniculate nerve ablation. This may be one option that may address some of his discomfort. Otherwise I do believe there is any surgical intervention that I can offer him that will make him better. He had a negative work-up for infection in the past as well as multiple bouts of physical therapy. The patient was comfortable to referral to the pain clinic. All questions were answered. Signed: SUKHJINDER NORWOOD MD 01/05/2022 documented in this encounter Plan of Treatment Upcoming Encounters Date Type Department Care Team (Late st Contact Info) Description 08/18/2024 11:00 AM EDT Hospital Encounter [place] [address] Arrived 02/22/2025 1:30 PM EDT Appointment Hematology [place] [phone] 02/22/2025 2:30 PM EDT Office Visit Hematology [place] [phone] Ellis Childers MD [facility] DR HEMATOLOGY [place] [address] Felicita Landa APRN [facility] DR HEMATOLOGY [place] [address] Scheduled Referrals Name Type Priority Associated Diagnoses Orde r Schedule Referral to Pain and Spine Center (Internal only) Outpatient Referral Routine Chronic pain of right knee Status post right knee replacement Ordered: 01/05/2022 documented as of this encounter Visit Diagnoses Diagnosis Chronic pain of right knee Status post right knee replacement documented in this encounter Care Teams Mother Helper Relationship Specialty Start Date End Date Radha Mckeon MD [address] [place] [address] PCP - General 09/23/10 documented as of this encounter
--- OUTSIDE RECORDS SUMMARY | 2024-07-24 17:24 | XMS_ITS | Encounter Summary ---
Author Organization [facility] [place] [address] Care Team Providers Care Glassware Selector Name Role Phone Radha Mckeon MD Primary Care Provider [phone] Encounter Details Date Type Department Care Team (Late st Contact Info) Description 03/04/2022 Telephone [place] [phone] Kareem Mckeon MSW Social History Tobacco Use [...] Telephone Encounter - Kareem Mckeon MSW - 03/05/2022 4:08 PM EDTSummary: Discussed accomodations post-op OFFICE of CARE MANAGEMENT [facility] Sawmill Moulder Operator spoke with Mr. Machado by phone at to discuss his concerns regarding follow up care Post-Op. Mr. Machado stated he would like to go to [facility] after his surgery and then home with visiting Nursing services. Mr. Machado stated he does not have any support in the home. Social Work confirmed [facility] is a service provider in his locale and provided Mr. Machado with updated information. Sawmill Moulder Operator encouraged Mr. Machado to inform the Medical Team of his Post-op request once he check in the day of surgery. Sawmill Moulder Operator also informed Mr. Machado that the Interdisciplinary team will meet to discuss and id entify a thorough discharge plan and send all referrals as necessary, prior to discharge. Mr. Machado verbalized understanding. There are no other concerns to address at this time. SOY Kemp documented in this encounter Plan of Treatment Upcoming Encounters Date Type Department Care Team (Late st Contact Info) Description 08/18/2024 11:00 AM EDT Hospital Encounter Non-Invasive Cardiology Lab [place] [phone] Arrived 02/22/2025 1:30 PM EDT Appointment Hematology and Oncology at [address] 02/22/2025 2:30 PM EDT Office Visit Hematology and Oncology at [address] Ellis Childers MD [facility] [address] [place] [address] Felicita Landa APRN [facility] [address] [place] [address] documented as of this encounter Visit Diagnoses Not on filedocumented in this encounter Care Teams Glassware Selector Relationship Specialty Start Date End Date Radha Mckeon MD [address] [place] [address] PCP - General 09/23/10 documented as of this encounter
--- OUTSIDE RECORDS SUMMARY | 2024-07-24 17:24 | XMS_ITS | Encounter Summary ---
[place] [address] Care Team Providers Care Research Recruiter Name Role Phone Radha Mckeon MD Primary Care Provider [phone] Encounter Details Date Type Department Care Team (Late st Contact Info) Description 05/30/2021 3:15 PM EDT Ancillary [place] [address] [facility]ibrado Robles [facility] [place] [address] Pain Social History Tobacco Use Types Packs/Day Years [...] AM EDT Hospital Encounter [place] [address] Arrived 02/22/2025 1:30 PM EDT Appointment Hematology [place] [address] 02/22/2025 2:30 PM EDT Office Visit Hematology [place] [address] Ellis Childers MD [facility] DR HEMAT[place] [address] Felicita Landa APRN [facility] DR HEMATOLOGY [place] [address] documented as of this encounter Procedures Procedure Name Priority Date/Time Associated Diagnosis Comments FILM LIBRARY STORAGE ONLY PAIN CLINIC C ARM Routine 05/30/2021 4:11 PM EDT Pain documented in this encounter Results * Film Library- Storage Only pain Clinic C-Arm (05/30/2021 4:11 PM EDT) Narrative [facility] - 05/30/2021 4:11 PM EDT See PACS for result report. Librado Crockett DO [employer] FILM LIBRARY ORD ERABLES [place], [place] documented in this encounter Visit Diagnoses Diagnosis Pain Generalized pain documented in this encounter Care Teams Research Recruiter Relationship Specialty Start Date End Date Radha Mckeon MD [address] [place] [address] PCP - General 09/23/10 documented as of this encounter
--- OUTSIDE RECORDS SUMMARY | 2024-07-24 17:24 | XMS_ITS | Encounter Summary ---
Author Organization [facility] [place] [address] Care Team Providers Care Lead Project Engineer Name Role Phone Radha Mckeon MD Primary Care Provider [phone] Encounter Details Date Type Department Care Team (Latest Contact Info) Description 04/01/2022 9:55 AM EDT - 04/01/2022 11:59 PM EDT Hospital Encounter [place]ology [place] [phone] Thrombocytopenia Discharge Disposition: Home Social History Tobacco [...] QD 04/23/2020 fluticasone propionate (FLONASE) 50 mcg/actuation [place], Suspension INSTILL 1SPRAY IN EACH NOSTRIL TWICE [...] AM EDT Hospital Encounter [place] [address] Arrived 02/22/2025 1:30 PM EDT Appointment H[place]ology [place] [phone] 02/22/2025 2:30 PM EDT Office Visit [place]ology [place] [address] Ellis Childers MD [facility] [place] [address] Felicita Landa APRN [facility] [place] [address] documented as of this encounter Procedures Procedure Name Priority Date/Time Associated Diagnosis Comments HEMOGRAM Routine 04/01/2022 10:02 AM EDT Thrombocytopenia DIFFERENTIAL, AUTOMATED Routine 04/01/2022 10:02 AM EDT Thrombocytopenia HC HEPATITIS C ANTIBODY Routine 04/01/2022 10:02 AM EDT Thrombocytopenia HC HIV SCREEN, 4TH GENERATION Routine 04/01/2022 10:02 AM EDT Thrombocytopenia PLATELET COUNT Routine 04/01/2022 10:02 AM EDT Thrombocytopenia HC CBC,PLT & AUTO DIFF Routine 04/01/2022 10:02 AM EDT Thrombocytopenia HC PCH ANATITRE (ANDPATTERN) Routine 04/01/2022 10:02 AM EDT Thrombocytopenia TSH Routine 04/01/2022 10:02 AM EDT HC FOLATE, SERUM Routine 04/01/2022 10:0 2 AM EDT Thrombocytopenia HC VITAMIN B12 SERUM Routine 04/01/2022 10:02 AM EDT Thrombocytopenia documented in this encounter Results * TSH (04/01/2022 10:02 AM EDT) [facility] Thyroid Stimulating Hormone 1.91 0.27 - 4.20 mcIU/mL [facility] Comment: Reference Interval (mcIU/mL): Females: ??First Trimester: 0.23-3.88 ??Second Trimester: 0.22-3.90 ??Third Trimester: 0.44-4.66 Blood Venous Draw / Unknown 04/01/2022 10:02 AM EDT 04/04/2022 12:57 PM EDT Narrative Resulting Agency Comment Spec In Lab Ellis Childers MD CHEMISTRY ORDERA BLES [facility] [place] [address] * (ABNORMAL) Differential, Automated (04/01/2022 10:02 AM EDT) [facility] Neutrophil % 74.4 % [facility] Neutrophil Absolute 4.70 1.70 - 6.10 x10(3)/mc L [facility] Lymph % 11.6 % [facility] Lymphocytes Abs 0.7(L) 0.9 - 3.2 x10(3)/mc L [facility] Monocyte % 10.4 % [facility] Monocyte Abs 0.7 0.3 - 0.9 x10(3)/mc L [facility] Eos % 2.5 % [facility] Eosinophils Abs 0.2 0.0 - 0.4 x10(3)/mc L [facility] Basophil % 0.8 % [facility] Baso Absolute 0.0 0.0 - 0.1 x10(3)/mc L [facility] Immature Gran % 0.30 % [facility] Comment: Immature granulocytes(IG's)percentage and absolute count will include metamyelocytes, myelocytes, and promyelocytes. Blood smears from CBCs yielding IG's will be scanned manually for concordance. If this scan disagrees with the automated IG or if promyelocytes are noted, a manual differential will be performed. Immature Gran Absolute 0.02 0.00 - 0.04 x10(3)/mc L [facility] Blood 04/01/2022 10:0 2 AM EDT 04/01/2022 10:18 AM EDT Narrative Resulting Agency Comment Spec In Lab Ellis Childers MD HEMATOLOGY ORDER DELICIA [facility] [place] [address] * (ABNORMAL) Hemogram (04/01/2022 10:02 AM EDT) White Blood Cell 6.3 4.0 - 9.5 x10(3)/[facility] Red Blood Cell 5.08 4.58 - 5.54 x10(6)/[facility] Hemoglobin 15.5 13.7 - 16.5 g/dL [facility] Hematocrit 46.7 40.5 - 48.5 % [facility] Mean Cell Volume 91.9 82.9 - 93.1 fL [facility] Mean Cell Hemoglobin 30.5 27.5 - 32.1 pg [facility] Mean Cell Hemoglobin Concentration 33.2 32.0 - 35.7 g/dL [facility] Platelet 94(L) 145 - 357 x10(3)/[facility] RDW Standard Deviation 41.1 36.0 - 45.0 [facility] RDW coefficient of variation 12.0 11.4 - 13.8 % [facility] Mean Platelet Volume 11.5 7.6 - 12.9 fL [facility] NRBC% auto 0.0 % [facility] NRBC Absolute 0.000 0.000 - 0.000 x10(3)/mcL [facility] Blood 04/01/2022 10:0 2 AM EDT 04/01/2022 10:18 AM EDT Narrative Resulting Agency Comment Spec In Lab Ellis Childers MD HEMATOLOGY ORDER DELICIA Performing Organization Address [facility] de Phone Number [facility] [place] [address] * Folate, serum (04/01/2022 10:02 AM EDT) Folate 16.3 4.8 - 24.2 ng/mL [facility] Blood 04/01/2022 10:0 2 AM EDT 04/01/2022 10:18 AM EDT Narrative Resulting Agency Comment Spec In Lab Ellis Childers MD CHEMISTRY ORDERA BLES Performing Organization Address [facility] de Phone Number [facility] [place] [address] * Vitamin B12 (04/01/2022 10:02 AM EDT) Vitamin B12 600 232 - 1,245 pg/mL [facility] Blood 04/01/2022 10:0 2 AM EDT 04/01/2022 10:18 AM EDT Narrative Resulting Agency Comment Spec In Lab Ellis Childers MD CHEMISTRY ORDERA BLES Performing Organization Address [facility] de Phone Number [facility] [place] [address] * (ABNORMAL) CH[place]ORTA (04/01/2022 10:02 AM EDT) [facility] Ab Screen Test ?Result ? Flag ??Unit ??RefValue Antinuclear Ab, HEp-2 Substrate, ?Positive 1:160 ??@ ?<1:80 (Negative) ??S ? ADDITIONAL INFORMATION --------- ?Method: Immunofluorescence using HEp-2 cellular substrate. ??CH[place]ORTA Titer: ?1:160 ??[facility]ORTA Pattern: ?Speckled ??Cytoplasmic Pattern: ?Positive ??Lab Comment: ?SEE COMMENTS ?Cytoplasmic speckled staining pattern observed. May be ?associated with anti-ribosomal P, anti-Magdalena-1, or other ?anti-synthetase antibodies. ?Test Performed by: ?[facility] ?[address] [place] [address] ?Lime Puller: Joaquin Hayward M.D. Ph.D.; CLIA# [id number] ([id number]) [facility] Blood 04/01/2022 10:0 2 AM EDT 04/01/2022 2:40 PM EDT Narrative Resulting Agency Comment Spec In Lab Ellis Childers MD LAB SEND OUT ORD ERABLES [facility] [place] [address] * HIV Screen, 4th Generation ([facility] [place]CGP/APD/NLH) (04/01/2022 10:02 AM EDT) HIV Ab/Ag Screen Negative Negative [facility] Comment: This 4th Generation HIV test [...] HIV Comment Low Risk of HIV Infection [facility] Blood 04/01/2022 10:0 2 AM EDT 04/01/2022 10:18 AM EDT Narrative Resulting Agency Comment Spec In Lab Ellis Childers MD CHEMISTRY ORDERA BLES Performing Organization Address [facility]/ZIP Co de Phone Number [facility] [place] [address] * Hepatitis C Antibody (04/01/2022 10:02 AM EDT) Hepatitis C Antibody Negative Negative [facility] Blood 04/01/2022 10:0 2 AM EDT 04/01/2022 10:18 AM EDT Narrative Resulting Agency Comment Spec In Lab Ellis Childers MD CHEMISTRY ORDERA BLES Performing Organization Address [facility] Co de Phone Number [facility] [place] [address] * (ABNORMAL) Platelet count (04/01/2022 10:02 AM EDT) Platelet 94(L) 145 - 357 x10(3)/mc L [facility] Immature Plt % 5.1 0.0 - 7.4 % [facility] Comment: Limitation of the Immature Platelet Fraction (IPF)-May be less reliable when the platelet count is less than 44j242/uL due to statistical imprecision. The IPF value [...] in a decreased state of production. References: [employer] The Clinical Value of the Immature Platelet Fraction (IPF) in Cell Recovery Document Number [id number] 04/2011 [employer] The Role of the Immature Platelet Fraction (IPF) in the Differential Diagnosis of Thrombocytopenia, Document [id number] V003/12/14 P003/14 Blood 04/01/2022 10:0 2 AM EDT 04/01/2022 10:18 AM EDT Narrative Resulting Agency Comment Spec In Lab Ellis Childers MD HEMATOLOGY ORDER DELICIA [facility] [place] [address] documented in this encounter Visit Diagnoses Diagnosis Thrombocytopenia Thrombocytopenia, unspecified documented in this encounter Care Teams Lead Project Engineer Relationship Specialty Start Date End Date Radha Mckeon MD [address] [place] [address] PCP - General 09/23/10 documented as of this encounter
--- OUTSIDE RECORDS SUMMARY | 2024-07-24 17:24 | XMS_ITS | Encounter Summary ---
Author Organization [facility] [place] [address] Care Team Providers Care Matrix Supervisor Name Role Phone Radha Mckeon MD Primary Care Provider [phone] Encounter Details Date Type Department Care Team (Late st Contact Info) Description 03/16/2022 Telephone [place] [phone] Nicole Persaud RN Social History Tobacco Use Types Packs/Day [...] encounter Miscellaneous Notes * Telephone Encounter - Nicole Persaud RN - 03/17/2022 3:[address] Clayton planned 03/17/2022 surgery to be cancelled, patient's platelet count is low (80,000)and this needs to be addressed prior to proceeding. Patient has history of ITP, patient is followedby Dr. Woods at [facility] and Oncology. Dr. Clayton requesting consult with [facility]. Patient was contacted and informed that surgery will need to be postponed until low platelet count is addressed. Patient disappointed as he has made many arrangements to have surgery done but understands that this change is for his safety. Referral to [facility] completed, patient was scheduled for 04/01/2022 consult in [facility]. He was placed on wait list if sooner appointment becomes available. documented in this encounter Plan of Treatment Upcoming Encounters Date Type Department Care Team (Late st Contact Info) Description 08/18/2024 11:00 AM EDT Hospital Encounter Non[place] [address] Arrived 02/22/2025 1:30 PM EDT Appointment Hematology and Oncology at [place] [phone] 02/22/2025 2:30 PM EDT Office Visit Hematology and Oncology at [place] [address] Ellis Childers MD [facility] DR HEMAT[place] [address] Felicita Landa APRN [facility] DR [place] [address] documented as of this encounter Visit Diagnoses Diagnosis 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
--- OUTSIDE RECORDS SUMMARY | 2024-07-24 17:24 | XMS_ITS | Encounter Summary ---
Author Organization [facility] Address [facility] [place] [address] Care Team Providers Care Operations Leader Name Role Phone Radha Mckeon MD Primary Care Provider [phone] Encounter Details Date Type Department Care Team (Latest Contact Info) Description 01/05/2022 10:15 AM EST - 01/05/2022 10:29 AM [facility] Hospital Encounter XRay at [address] [place] [address] Rey Clayton MD [facility] [place] [address] Numbness and tingling in left arm Discharge [...] QD 04/23/2020 fluticasone propionate (FLONASE) 50 mcg/actuation [place], Suspension INSTILL 1SPRAY IN EACH NOSTRIL TWICE [...] TABLETS BY MOUTH DAILY 135 tablet 1 08/01/2021 01/26/2022 oxyCODONE (ROXICODONE) 15 mg Tablet 15 mg as needed. 05/20/2022 acetaminophen (Tylenol) 500 mg Tablet Take 2 tablets by mouth every 8 hours. Take as directed around the clock for ten days after your surgery. After that you can take Tylenol as needed per package insert. 05/15/2021 05/20/2022 pregabalin (LYRICA) 100 mg Capsule Take 1 capsule by mouth 2 times daily. 02/11/2021 11/29/2023 flu vacc [id number],65yr up,/PF (FluZONE HighDose Quad 20-21 PF) 240 [...] AM EDT Hospital Encounter Non-[place] [address] Arrived 02/22/2025 1:30 PM EDT Appointment Hematology [place] [phone] 02/22/2025 2:30 PM EDT Office Visit Hematology [place] [address] Ellis Childers MD [facility] [place] [address] Felicita Landa APRN [facility] [place] [address] documented as of this encounter Procedures Procedure Name Priority Date/Time Associated Diagnosis Comments XR CHEST PA AND LATERAL Routine 01/05/2022 10:24 AM EST Numbness and tingling in left arm documented in this encounter Results * XR Chest PA & Lateral (Generic) (01/05/2022 10:24 AM EST) Anatomical Region Laterality Modality Chest N/A Digital Radiogra phy Impressions 01/05/2022 10:43 AM EST No active cardiopulmonary pathology identified. MR compatible loop recorder on the left. Thank you for letting us participate in the care of this patient. ??If you are a health care provider and have any questions regarding this report, please contact the number below. ??For patients who have questions please contact the health senior resident care director that requested your imaging first. ? Electronically signed by: Radha Troncoso MD, [facility] [place] ([phone]), at 01/05/2022 10:43 AM Narrative 01/05/2022 10:43 AM EST EXAMINATION: XR CHEST PA AND LATERAL (GENERIC) CLINICAL HISTORY: eval for internal loop recorder for MRI needs TECHNIQUE: PA and lateral views of the chest. COMPARISON: 11/29/2020. FINDINGS: As before, MR compatible loop recorder projects over the lower anterior left hemithorax. No other equipment. The lungs appear clear. The cardiomediastinal silhouette, jerson, pulmonary vessels, and pleura are within normal limits. No significant osseous findings are seen. Procedure Note Radha Troncoso MD - 01/05/2022 EXAMINATION: XR CHEST PA AND LATERAL (GENERIC) CLINICAL HISTORY: eval for internal loop recorder for MRI needs TECHNIQUE: PA and lateral views of the chest. COMPARISON: 11/29/2020. FINDINGS: As before, MR compatible loop recorder projects over the lower anterior left hemithorax. No other equipment. The lungs appear clear.The cardiomediastinal silhouette, jerson, pulmonary vessels, and pleura arewithin normal limits. No significant osseous findings are seen. IMPRESSION No active cardiopulmonary pathology identified. MR compatible loop recorder on the left. Thank you for letting us participate in the care of this patient. If youare a health care provider and have any questions regarding this report,please contact the number below. For patients who have questions please contactthe health senior resident care director that requested your imaging first. Electronically signed by: Radha Troncoso MD, [facility]([phone]), at 01/05/2022 10:43 AM Rey Clayton MD IMG DX ORDERABLES documented in this encounter Visit Diagnoses Diagnosis Numbness and tingling in left arm Disturbance of skin sensation documented in this encounter Care Teams Operations Leader Relationship Specialty Start Date End Date Radha Mckeon MD [address] [place] [address] PCP - General 09/23/10 documented as of this encounter
--- OUTSIDE RECORDS SUMMARY | 2024-07-24 17:24 | XMS_ITS | Encounter Summary ---
[place] [address] Care Team Providers Care Push Bench Operator Helper Name Role Phone Radha Mckeon MD Primary Care Provider [phone] Encounter Details Date Type Department Care Team (Late st Contact Info) Description 12/03/2021 Orders Only [facility] [place] [phone] Sulema Gaines LPN Numbness and tingling in left arm Social History Tobacco Use Types Packs/Day Years [...] AM EDT Hospital Encounter Non-[place] [phone] Arrived 02/22/2025 1:30 PM EDT Appointment Hematology [place] [address] 02/22/2025 2:30 PM EDT Office Visit Hematology [place] [address] Ellis Childers MD [facility] DR HEMATOLOGY [place] [address] Felicita Landa APRN [facility] HEMATOLOGY [place] [address] documented as of this encounter Results * XR Chest PA [...] who have questions please contact the health school child care attendant that requested your imaging first. ? Narrative 01/05/2022 10:43 AM EST EXAMINATION: XR [...] patients who have questions please contactthe health school child care attendant that requested your imaging first. Rey Clayton MD IMG DX ORDERABLES documented in this encounter Visit Diagnoses Diagnosis Numbness and tingling in left arm Disturbance of skin sensation Numbness and tingling in left arm Disturbance of skin sensation documented in this encounter Care Teams Push Bench Operator Helper Relationship Specialty Start Date End Date Radha Mckeon MD [address] [place] [address] PCP - General 09/23/10 documented as of this encounter
--- OUTSIDE RECORDS SUMMARY | 2024-07-24 17:24 | XMS_ITS | Encounter Summary ---
[place] [address] Care Team Providers Care Respiratory Care Instructor Name Role Phone Radha Mckeon MD Primary Care Provider [phone] Encounter Details Date Type Department Care Team (Late st Contact Info) Description 05/23/2021 Telephone Pain [place] [phone] Zuleima Luis Social History Tobacco Use Types Packs/Day Years [...] AM EDT Hospital Encounter Non-Invasive [place] [phone] Arrived 02/22/2025 1:30 PM EDT Appointment Hematology [place] [address] 02/22/2025 2:30 PM EDT Office Visit Hematology and Oncology at [facility] [address] Ellis Childers MD [facility] [address] [place] [address] Felicita Landa APRN [facility] [address] [place] [address] documented as of this encounter Visit Diagnoses Not on filedocumented in this encounter Care Teams Respiratory Care Instructor Relationship Specialty Start Date End Date Radha Mckeon MD [address] [place] [address] PCP - General 09/23/10 documented as of this encounter
--- OUTSIDE RECORDS SUMMARY | 2024-07-24 17:24 | XMS_ITS | Encounter Summary ---
Author Organization [facility] [place] [address] Care Team Providers Care Wrapper Sorter Name Role Phone Radha Mckeon MD Primary Care Provider [phone] Reason for Referral * Diagnostic Test (Routine) - Closed Specialty Diagnoses / Procedures Referred By Contac t Referred To Contact Radiology Diagnoses Neck pain Numbness and tingling in left arm Procedures MRI Cervical Spine wo Contrast (Generic) [place] [address] [place] [address] Referral ID Status Reason Start Date Expiration Date V isits Requested Visits Authorized [id number] Closed Specialty Service Requested 12/01/2021 05/31/2023 1 1 Reason for Visit * Diagnostic Test (Routine) - Closed Specialty Diagnoses / Procedures Referred By Contlibby t Referred To Contact Radiology Diagnoses Neck pain Numbness and tingling in left arm Procedures MRI Cervical Spine wo Contrast (Generic) Rey Clayton MD [facility] [place] [address] [facility] [place] [address] Referral ID Status Reason Start Date Expiration Date V isits Requested Visits Authorized [id number] Closed Specialty Service Requested 12/01/2021 05/31/2023 1 1 Encounter Details Date Type Department Care Team (Latest Contact Info) Description 01/05/2022 10:30 AM EST - 01/05/2022 3:14 PM [facility] Hospital [place] [address] Rey Clayton MD [facility] [place] [address] Neck pain; Numbness and tingling in left arm Discharge [...] QD 04/23/2020 fluticasone propionate (FLONASE) 50 mcg/actuation [place]eding, Suspension INSTILL 1SPRAY IN EACH NOSTRIL TWICE [...] 2 times daily. 02/11/2021 11/29/2023 flu vacc [id number],65yr up,/PF (FluZONE HighDose Quad 20-21 PF) 240 mcg/0.7 mL Syringe seasonal 07/23/2020 04/01/2022 Xarelto 20 mg Tablet TK 1 T PO QD 03/26/2020 omeprazole (PRILOSEC) 20 mg Capsule, Delayed Release(E.C.) Take 20 mg by mouth 2 times daily. 10/07/2017 08/03/2023 fish oil-omega-3 fatty acids with vitamin E 1,000 mg Capsule Take 2,000 mg by mouth daily. 05/20/2022 documented as of this encounter Plan of Treatment Upcoming Encounters Date Type Department Care Team (Late st Contact Info) Description 08/18/2024 11:00 AM EDT Hospital Encounter Non-[place] [phone] Arrived 02/22/2025 1:30 PM EDT Appointment Hematology [place] [phone] 02/22/2025 2:30 PM EDT Office Visit Hematology [place] [address] Ellis Childers MD [facility] [address] HEMATOLOGY [place] [address] Felicita Landa APRN [facility] [address] HEMATOLOGY [place] [address] documented as of this encounter Procedures Procedure Name Priority Date/Time Associated Diagnosis Comments MRI CERVICAL SPINE WO CONTRAST Routine 01/05/2022 11:34 AM EST Neck pain Numbness and tingling in left arm documented in this encounter Results * MRI Cervical Spine wo Contrast (Generic) (01/05/2022 11:34 AM EST) Anatomical Region Laterality Modality C-spine Magnetic Resonan ce Impressions 01/05/2022 1:26 PM EST No significant spinal canal narrowing. Moderate and severe degrees of neural foraminal narrowing at several levels as described above not significantly changed. Thank you for letting us participate in the care of this patient. ??If you are a health care provider and have any questions regarding this report, please contact the number below. ??For patients who have questions please contact the health customer care assistant that requested your imaging first. ? Electronically signed by: AFSHAN Zavala [facility] ([phone]), at 01/05/2022 1:26 PM Narrative 01/05/2022 1:26 PM EST EXAMINATION: MRI CERVICAL SPINE WO CONTRAST (GENERIC) CLINICAL HISTORY: Cervical radiculopathy neck and left upper extremity pain. TECHNIQUE: MRI of the cervical spine performed without intravenous contrast administration. Radiculopathy protocol. COMPARISON: Cervical spine MRI dated 11/29/2020. FINDINGS: Stable incidental Tornwaldt cyst. Stable mild posterior disc space narrowing at C6-C7. Otherwise disc spaces and vertebral body heights are well-maintained. Cervical cord is of normal size and signal intensity. Normal craniocervical junction. Normal bone marrow signal intensity. The following disc levels are outlined below: C2-C3 mild bilateral neural foraminal narrowing because of facet arthropathy. The spinal canal is patent. At C3-4 patent spinal canal. Uncovertebral and facet arthropathy result in mild right and moderate left-sided neural foraminal narrowing similar compared to prior. At C4-C5 spinal canal is patent. Uncovertebral and facet arthropathy result in moderate right and severe left-sided neural foraminal narrowing similar compared to prior. At C5-C6 spinal canal is patent. Uncovertebral and facet arthropathy with moderate left and mild right-sided neural foraminal narrowing similar compared to prior. At C6-7 spinal canal is patent. Minimal facet arthropathy result in stable severe right and mild left-sided neural foraminal narrowing. At C5-T1 the canal and neural foramen are patent. Procedure Note Librado Li MD - 01/05/2022 EXAMINATION: MRI CERVICAL SPINE WO CONTRAST (GENERIC) CLINICAL HISTORY: Cervical radiculopathy neck and left upper extremity pain. TECHNIQUE: MRI of the cervical spine performed without intravenous contrastadministration. Radiculopathy protocol. COMPARISON: Cervical spine MRI dated 11/29/2020. FINDINGS: Stable incidental Tornwaldt cyst. Stable mild posterior disc spacenarrowing at C6-C7. Otherwise disc spaces and vertebral body heights arewell-maintained. Cervical cord is of normal size and signal intensity. Normalcraniocervical junction. Normal bone marrow signal intensity. The following disc levels are outlined below: C2-C3 mild bilateral neural foraminal narrowing because of facetarthropathy. The spinal canal is patent. At C3-4 patent spinal canal. Uncovertebral and facet arthropathy result inmild right and moderate left-sided neural foraminal narrowing similar comparedto prior. At C4-C5 spinal canal is patent. Uncovertebral and facet arthropathyresult in moderate right and severe left-sided neural foraminal narrowing similarcompared to prior. At C5-C6 spinal canal is patent. Uncovertebral and facet arthropathywith moderate left and mild right-sided neural foraminal narrowing similarcompared to prior. At C6-7 spinal canal is patent. Minimal facet arthropathy result instable severe right and mild left-sided neural foraminal narrowing. At C5-T1 the canal and neural foramen are patent. IMPRESSION No significant spinal canal narrowing. Moderate and severe degrees of neural foraminal narrowing at severallevels as described above not significantly changed. Thank you for letting us participate in the care of this patient. If youare a health care provider and have any questions regarding this report,please contact the number below. For patients who have questions please contactthe health customer care assistant that requested your imaging first. Rey Clayton MD IMG MRI ORDERABLES documented in this encounter Visit Diagnoses Diagnosis Neck pain Cervicalgia Numbness and tingling in left arm Disturbance of skin sensation documented in this encounter Care Teams Wrapper Sorter Relationship Specialty Start Date End Date Radha Mckeon MD [address] [place] [address] PCP - General 09/23/10 documented as of this encounter
--- OUTSIDE RECORDS SUMMARY | 2024-07-24 17:24 | XMS_ITS | Encounter Summary ---
Author Organization [facility] [place] [address] Care Team Providers Care Trial Attorney Name Role Phone Radha Mckeon MD Primary Care Provider [phone] Encounter Details Date Type Department Care Team (Late st Contact Info) Description 03/10/2022 [place]phone [place] [address] Zuleima Bean Social History Tobacco Use Types Packs/Day Years [...] encounter Miscellaneous Notes * Telephone Encounter - Zuleima Bean - 03/10/2022 9:20 AM EDT Telephone call placed/received to schedule covid 19 testing with patient. Ordering provider: Dr. Rey Clayton Testing Facility: [place], [place] Date of Testin03/14/2022 Time of Testing: Walk-in Symptoms: No Employee or Household Member of Employee No Healthcare Worker No documented in this encounter Plan of Treatment Upcoming Encounters Date Type Department Care Team (Late st Contact Info) Description 08/18/2024 11:00 AM EDT Hospital Encounter Non-Invasive [place] [phone] Arrived 02/22/2025 1:30 PM EDT Appointment H[place]ology [place] [address] 02/22/2025 2:30 PM EDT Office Visit Hematology [place] [address] Ellis Childers MD [facility] [place] [address] Felicita Landa APRN [facility] [place] [address] documented as of this encounter Visit Diagnoses Not on filedocumented in this encounter Care Teams Trial Attorney Relationship Specialty Start Date End Date Radha Mckeon MD [address] [place] [address] PCP - General 09/23/10 documented as of this encounter
--- OUTSIDE RECORDS SUMMARY | 2024-07-24 17:24 | XMS_ITS | Encounter Summary ---
Author Organization [facility] [place] [address] Care Team Providers Care Truckload Owner Operator Name Role Phone Radha Mckeon MD Primary Care Provider [phone] Encounter Details Date Type Department Care Team (Late st Contact Info) Description 02/17/2022 Telephone [place] [phone] Cely Irvin Social History Tobacco Use Types [...] * Telephone Encounter - Cely Irvin - 02/17/2022 8:10 AM EDT Rec'd incoming call from Asha at [facility]. Asha states that they have received a referral for Mr. Machado, however they do not service his geographical area. She instead suggests a referral dewayne sent to [facility]. I advised that I would forward a message to Dr. Sridhar tavarez's nursing staff to see if they could place a new referral. documented in this encounter Plan of Treatment Upcoming Encounters Date Type Department Care Team (Late st Contact Info) Description 08/18/2024 11:00 AM EDT Hospital Encounter Non-[place] [address] Arrived 02/22/2025 1:30 PM EDT Appointment [place] [address] 02/22/2025 2:30 PM EDT Office Visit Hematology and Oncology at [place] [phone] Ellis Childers MD [facility] DR H[place]ATOLOGY [place] [address] Felicita Landa APRN [facility] DR HEMATOLOGY [place] [address] documented as of this encounter Visit Diagnoses Not on filedocumented in this encounter Care Teams Truckload Owner Operator Relationship Specialty Start Date End Date Radha Mckeon MD [address] [place] [address] PCP - General 09/23/10 documented as of this encounter
--- OUTSIDE RECORDS SUMMARY | 2024-07-24 17:24 | XMS_ITS | Encounter Summary ---
Author Organization [facility] [place] [address] Care Team Providers Care Telehealth Coordinator Name Role Phone Radha Mckeon MD Primary Care Provider [phone] Reason for Visit * Reason Comments Post Op DOS:05/15/21 RIGHT LO NG TRIGGER REL Encounter Details Date Type Department Care Team (Late st Contact Info) Description 05/30/2021 2:30 PM EDT [place] [address] Jovan Duong MD [facility] [place] [address] Trigger middle finger of right hand Social [...] Sign Reading Time Taken Comments Blood Pressure 155/78 05/30/2021 2:06 PM EDT Pulse - - Temperature - - Respiratory Rate - - Oxygen Saturation - - Inhaled Oxygen Concentration - - Weight 79.8 kg (176 lb) 05/30/2021 2:06 PM EDT Height 182.9 cm (6') 05/30/2021 2:06 PM EDT Body Mass Index 23.87 05/30/2021 2:06 PM EDT documented in this encounter Progress Notes * Jovan Duong MD - 05/30/2021 2:30 PM EDT Orthopaedic Clinic Post-Op Note PATIENT NAME: Malik Machado DATE OF VISIT: 05/30/21 CHIEF COMPLAINT: Chief Complaint Patient presents with ??? Post Op DOS:05/15/21 RIGHT LONG TRIGGER REL DATE OF SURGERY: 05/15/21 SURGERY: Right Long Finger Trigger Release HPI: Malik Machado is a 71 y.o. male patient who presents to the orthopaedic clinic 2 weeks after the surgery above. Only took pain medication once (narcotic), then just Tylenol. No ongoing pain at wound. Endorses pain distally in finger, especially if he bumps it. Has had no further catching/locking since the surgery. Pain now is only distal. Has been using his hand and finger. Denies fevers/chills Has been covering it with band-aids, keeping wound dry. He has been avoiding use of the hand, protecting it, not getting hand wet, trying to minimize motion. PHYSICAL EXAM: No acute distress Affect within normal limits for age Alert and oriented Speech clear and intact, appropriate for age Head atraumatic Respirations unlabored Brisk capillary refill peripheral bilateral upper extremities, warm and well perfused Right hand examined: 1 finger wound clean dry intact, nylon sutures intact, removed today and Steri's placed. No drainage or purulence. Minimal tenderness. Sensation intact to light touch radial and ulnar borders throughout the finger Moderate stiffness hand. Able to make composite fist with coaching, mild dorsal finger pain. Moderate tenderness dorsally over proximal phalanx. Nontender volar side. FDS and FDP fire but with coaching. Approximate 10 degree PIP flexion contracture. IMAGING: None obtained today ASSESSMENT and PLAN: Malik Machado is a 71 y.o. male patient 2 weeks status post release right long finger trigger. Overall he is doing well, no evidence of infection today, wound is well-healed and he is able to proceed with C-spine steroid injection today from a hand standpoint. He has resolved his preoperative catching and locking symptoms. He does however have diffuse, nonfocal long finger pains, distal to incision, mostly dorsal. He is also developing stiffness, and avoiding motion of the finger. We reviewed at this point the importance of beginning motion and avoiding scar formation. We discussed potential role for hand therapy if he is not resolving on his own quickly. Observation at this time, therapy if needed otherwise further evaluation in the future. Plan: --Activity, range of motion and weightbearing as tolerated --Encouraged beginning of active motion at home --From hand standpoint he may proceed with steroid injection C-spine Next week if his symptoms persist and are not improving he will call the office for referral to hand therapy, as close to home as possible given his distance. Likely external referral. If after 2 to 3 weeks of hand therapy he is still having symptoms he will call the office to schedule an in person examination. Followup: As needed if symptoms persist despite hand therapy. Call sooner with any questions or concerns. All questions were satisfactorily answered. Jovan Duong MD, MPH Pediatric Orthopaedics Hand & Upper Extremity Surgeon [facility] documented in this encounter Plan of Treatment Upcoming Encounters Date Type Department Care Team (Late st Contact Info) Description 08/18/2024 11:00 AM EDT Hospital Encounter Non[place] [address] Arrived 02/22/2025 1:30 PM EDT Appointment [place] [address] 02/22/2025 2:30 PM EDT Office Visit [place] [address] Ellis Childers MD [facility] [address] [place] [address] Felicita Landa APRN [facility] [place] [address] documented as of this encounter Visit Diagnoses Diagnosis Trigger middle finger of right hand Trigger finger (acquired) documented in this encounter Care Teams Telehealth Coordinator Relationship Specialty Start Date End Date Radha Mckeon MD [address] [place] [address] PCP - General 09/23/10 documented as of this encounter
--- OUTSIDE RECORDS SUMMARY | 2024-07-24 17:24 | XMS_ITS | Encounter Summary ---
Author Organization [facility] [place] [address] Care Team Providers Care Electrical Machine Builder Name Role Phone Radha Mckeon MD Primary Care Provider [phone] Reason for Referral * Diagnostic Test (Routine) - Closed Specialty Diagnoses / Procedures Referred By Becki guillory Referred To Contact Radiology Diagnoses Neck pain Numbness and tingling in left arm Procedures MRI Cervical Spine wo Contrast (Generic) Rey Clayton MD [facility] [place] [address] [place] [address] Referral ID Status Reason Start Date Expiration Date V isits Requested Visits Authorized [id number] Closed Specialty Service Requested 12/01/2021 05/31/2023 1 1 Encounter Details Date Type Department Care Team (Late st Contact Info) Description 12/01/2021 Orders Only [place] [address] Rey Clayton MD [facility] [place] [address] Neck pain; Numbness and tingling in left arm Social [...] Progress Notes * Nicole Persaud RN - 12/01/2021 12:41 PM EST Cervical MRI per Dr. Clayton. documented in this encounter Plan of Treatment Upcoming Encounters Date Type Department Care Team (Late st Contact Info) Description 08/18/2024 11:00 AM EDT Hospital Encounter [place] [address] Arrived 02/22/2025 1:30 PM EDT Appointment Hematology and Oncology at [place] [address] 02/22/2025 2:30 PM EDT Office Visit Hematology and Oncology at [place] [phone] Ellis Childers MD [facility] DR HEMAT[place] [address] Felicita Landa APRN [facility] DR HEMATOLOG[place] [address] documented as of this encounter Results * MRI Cervical Spine [...] questions please contact the health critical care nurse that requested your imaging first. ? Narrative 01/05/2022 1:26 PM EST EXAMINATION: MRI [...] have questions please contactthe health critical care nurse that requested your imaging first. Rey Clayton MD IMG MRI ORDERABLES documented in this encounter Visit Diagnoses Diagnosis Neck pain Cervicalgia Numbness and tingling in left arm Disturbance of skin sensation Neck pain Cervicalgia Numbness and tingling in left arm Disturbance of skin sensation documented in this encounter Care Teams Electrical Machine Builder Relationship Specialty Start Date End Date Radha Mckeon MD [address] [place] [address] PCP - General 09/23/10 documented as of this encounter
--- OUTSIDE RECORDS SUMMARY | 2024-07-24 17:24 | XMS_ITS | Encounter Summary ---
[place] [address] Care Team Providers Care Automatic Dry Starch Operator Name Role Phone Radha Mckeon MD Primary Care Provider [phone] Encounter Details Date Type Department Care Team (Latest Contact Info) Description 05/30/2021 1:30 PM EDT - 05/30/2021 4:38 PM EDT Hospital En[place] [address] Ruthann Simmons V [facility] [place] [address] Discharge Disposition: Home Social History Tobacco Use [...] Date/Time Order Dose Route Action {\field{\*\fldinst HYPERLINK ecmd:ord?kn=[id number]}{\fldrslt \cf18 05/30/2021 1559}} dexamethasone (PF) (Decadron) (10 mg/mL) injection 15 mg Epidural Given {\field{\*\fldinst HYPERLINK ecmd:ord?dh=[id number]}{\fldrslt \cf18 05/30/2021 1558}} iohexoL (Omnipaque) (240 mg/mL) injection solution 1 mL Epidural Given {\field{\*\fldinst HYPERLINK ecmd:ord?gs=[id number]}{\fldrslt \cf18 05/30/2021 1556}} midazolam (pf) (Versed) (1 mg/mL) injection 1 mg Intravenous Given {\field{\*\fldinst HYPERLINK ecmd:ord?bc=[id number]}{\fldrslt \cf18 05/30/2021 1550}} midazolam (pf) (Versed) (1 mg/mL) [...] QD 04/23/2020 fluticasone propionate (FLONASE) 50 mcg/actuation [place], Suspension INSTILL 1SPRAY IN EACH NOSTRIL TWICE [...] 135 tablet 1 02/04/2021 08/01/2021 flu vacc [id number],65yr up,/PF (FluZONE HighDose Quad 20-21 PF) 240 [...] medication ??? Irregular heart beat afib ??? retirement current use of opiate analgesic oxycodone, prescribed [...] CURVED Procedure Date: 01/14/2010 ??? JOINT REPLACEMENT [id number] ??? PACEMAKER IMPLANT loop recorder ??? PRO INCISE FINGER TENDON SHEATH Right 05/15/2021 TENDON SHEATH INCISION (TRIGGER FINGER) (WRVU 3.11) performed by Jovan Duong MD at [facility] MAIN OR ??? PRO REVISE KNEE JOINT REPLACE, ALL PARTS Right 11/15/2019 @TOTAL KNEE REVISION ARTHROPLASTY, COMPLETE (WRVU 27.11) performed by Sukhjinder Jauregui MD at [facility] MAIN OR ??? XR JOINT ASPIRATION - LARGE JOINT RIGHT Right 01/02/2019 XR Fluoro Guided Joint Aspiration Large Right 01/02/2019 [facility] RAD XRAY There are no past surgical [...] Operative Note Patient Name: Malik Machado : [id number] MR#: [id number] Case Date: 05/30/2021 Surgeon: Surgeon(s) and Role: [...] Dana V, Jessica L, Demetris AN, Giuliano COURTNEY. Cervical epidural steroid injections for symptomatic disc herniations. J Spinal Disord Tech. 2005;19(3):183-6. Mr. Machado was interviewed and the medical [...] level was 5/10. RUTHANN SIMMONS DO, MPH [facility]-subspecialty board certification in Pain Medicine Attending Physician-Pain Management CC: Unknown None Radha Mckeon MD [address] [place] [address] documented in this encounter Plan of Treatment Upcoming Encounters Date Type Department Care Team (Late st Contact Info) Description 08/18/2024 11:00 AM EDT Hospital Encounter Non-Invasive [place] [address] Arrived 02/22/2025 1:30 PM EDT Appointment Hematology [place] [address] 02/22/2025 2:30 PM EDT Office Visit Hematology [place] [address] Ellis Childers MD [facility] [address] [place] [address] Felicita Landa APRN [facility] [place] [address] documented as of this encounter Visit Diagnoses Diagnosis Radiculopathy of cervical region Brachial neuritis or radiculitis nos documented in this encounter Active and Recently [...] RN) documented in this encounter Care Teams Automatic Dry Starch Operator Relationship Specialty Start Date End Date Radha Mckeon MD [address] [place] [address] PCP - General 09/23/10 documented as of this encounter
--- OUTSIDE RECORDS SUMMARY | 2024-07-24 17:24 | XMS_ITS | Encounter Summary ---
Author Organization [facility] Address [facility] [place] [address] Care Team Providers Care Photoengraving Photographer Name Role Phone Radha Mckeon MD Primary Care Provider [phone] Encounter Details Date Type Department Care Team (Latest Contact Info) Description 01/05/2022 3:15 PM EST - 01/05/2022 11:59 PM [facility] Hospital Encounter XRay at [address] [place] [address] Sukhjinder Jauregui MD [facility] [place] [address] Status post revision of total knee replacement, right Discharge Disposition: Home Social History Tobacco Use [...] QD 04/23/2020 fluticasone propionate (FLONASE) 50 mcg/actuation [place], Suspension INSTILL 1SPRAY IN EACH NOSTRIL TWICE [...] 2 times daily. 02/11/2021 11/29/2023 flu vacc [id number],65yr up,/PF (FluZONE HighDose Quad 20-21 PF) 240 [...] AM EDT Hospital Encounter Non-Invasive [place] [phone] Arrived 02/22/2025 1:30 PM EDT Appointment Hematology [place] [phone] 02/22/2025 2:30 PM EDT Office Visit Hematology and [place]cology [place] [phone] Ellis Childers MD [facility] DR [place] [address] Felicita Landa APRN [facility] DR HEMATOLOGY AND ONCOLOGY [place] [phone] documented as of this encounter Procedures Procedure Name Priority Date/Time Associated Diagnosis Comments XR KNEE AP & LAT RIGHT Routine 01/05/2022 3:28 PM EST Status post revision of total knee replacement, right documented in this encounter Results * XR Knee 1-2 [...] who have questions please contact the health child care sitter that requested your imaging first. ? Electronically signed by: Vandana Elizabeth MD, [facility] ([phone]), at 01/05/2022 4:04 PM Narrative 01/05/2022 4:04 PM EST EXAMINATION: XR [...] patients who have questions please contactthe health child care sitter that requested your imaging first. Electronically signed by: Vandana Elizabeth MD, [facility]([phone]), at 01/05/2022 4:04 PM Sukhjinder Jauregui MD IMG DX ORDERABLES documented in this encounter Visit Diagnoses Diagnosis Status post revision of total knee replacement, right documented in this encounter Care Teams Photoengraving Photographer Relationship Specialty Start Date End Date Radha Mckeon MD [address] [place] [address] PCP - General 09/23/10 documented as of this encounter
--- OUTSIDE RECORDS SUMMARY | 2024-07-24 17:24 | XMS_ITS | Encounter Summary ---
Author Organization [facility] [place] [address] Care Team Providers Care Pantograph Ii Engraver Name Role Phone Radha Mckeon MD Primary Care Provider Encounter Details Date Type Department Care Team (Late st Contact Info) Description 05/29/2021 Telephone [facility] [place] [phone] Margoth Dumont, HYBRID POWERTRAIN DEVELOPMENT ENGINEER Social History Tobacco Use Types Packs/Day Years [...] Notes * Telephone Encounter - Margoth Dumont - 05/29/2021 11:04 AM EDT Outgoing call to patient about appointment with hand surgeon on 05/30/21 at 1430 prior to appointment with Dr. Robles at 1515 on 05/30/21. Voicemail left instructing patient to arrive to this first appointment early so that they can hopefully see him earlier so that he can make his later appointment ontime. JUSTUS Gibbs documented in this encounter Plan of Treatment Upcoming Encounters Date Type Department Care Team (Late st Contact Info) Description 08/18/2024 11:00 AM EDT Hospital Encounter Non-[place] [phone] Arrived 02/22/2025 1:30 PM EDT Appointment Hematology [place] [phone] 02/22/2025 2:30 PM EDT Office Visit Hematology [place] [phone] Ellis Childers MD [facility] [address] HEMATOLOGY [place] [address] Felicita Landa APRN [facility] [address] [place] [address] documented as of this encounter Visit Diagnoses Not on filedocumented in this encounter Care Teams Pantograph Ii Engraver Relationship Specialty Start Date End Date Radha Mckeon MD [address] [place] [address] PCP - General 09/23/10 documented as of this encounter
--- OUTSIDE RECORDS SUMMARY | 2024-07-24 17:24 | XMS_ITS | Encounter Summary ---
[place] [address] Care Team Providers Care Business Objects Architect Name Role Phone Radha Mckeon MD Primary Care Provider [phone] Encounter Details Date Type Department Care Team (Late st Contact Info) Description 06/20/2021 Orders Only Cardiology at [address] [phone] Margarette Ho, RN Paroxysmal atrial fibrillation Social History Tobacco Use [...] AM EDT Hospital Encounter Non-Invasive [place] [phone] Arrived 02/22/2025 1:30 PM EDT Appointment Hematology [place] [address] 02/22/2025 2:30 PM EDT Office Visit Hematology [place] [address] Ellis Childers MD [facility] [place] [address] Felicita Landa APRN [facility] [place] [address] documented as of this encounter Visit Diagnoses Diagnosis Paroxysmal atrial fibrillation Atrial fibrillation documented in this encounter Care Teams Business Objects Architect Relationship Specialty Start Date End Date Radha Mckeon MD [address] [place] [address] PCP - General 09/23/10 documented as of this encounter
--- OUTSIDE RECORDS SUMMARY | 2024-07-24 17:25 | XMS_ITS | Encounter Summary ---
Author Organization [facility] [place] [address] Care Team Providers Care Call Center Receptionist Name Role Phone Radha Mckeon MD Primary Care Provider [phone] Encounter Details Date Type Department Care Team (Late st Contact Info) Description 01/14/2021 Telephone [place] [phone] Esha Gamboa, RN Social History Tobacco Use Types Packs/Day [...] encounter Miscellaneous Notes * Telephone Encounter - Esha Gamboa RN - 01/15/2021 8:38 AM EDT Malik called at 4:58 pm to tell us that he had forgot that he was to hold his am dose of xarelto andhe wanted to know if that was going to prevent him from getting his steroid injection on Wednesday. I told him not to take anymore and we might be able to do the KATIE procedure on Wednesday. documented in this encounter Plan of Treatment Upcoming Encounters Date Type Department Care Team (Late st Contact Info) Description 08/18/2024 11:00 AM EDT Hospital Encounter Non[place] [address] Arrived 02/22/2025 1:30 PM EDT Appointment H[place]ology [place] [address] 02/22/2025 2:30 PM EDT Office Visit [place]ology [place] [phone] Ellis Childers MD [facility] [address] [place] [address] Felicita Landa APRN [facility] DR [place] [address] documented as of this encounter Visit Diagnoses Not on filedocumented in this encounter Care Teams Call Center Receptionist Relationship Specialty Start Date End Date Radha Mckeon MD [address] [place] [address] PCP - General 09/23/10 documented as of this encounter
--- OUTSIDE RECORDS SUMMARY | 2024-07-24 17:25 | XMS_ITS | Encounter Summary ---
Author Organization [facility] Address [facility] [place] [address] Care Team Providers Care Landscape Artist Name Role Phone Radha Mckeon MD Primary Care Provider [phone] Encounter Details Date Type Department Care Team (Latest Contact Info) Description 02/21/2021 2:22 PM EDT - 02/21/2021 11:59 PM EDT Hospital Encounter XRay at [address] [place] [address] Jovan Duong MD [facility] [place] [address] Trigger finger, right middle finger Discharge Disposition: Home Social History [...] QD 04/23/2020 fluticasone propionate (FLONASE) 50 mcg/actuation [place], Suspension INSTILL 1SPRAY IN EACH NOSTRIL TWICE [...] tablet Take 10 mg by mouth nightly. pregabalin (LYRICA) 100 mg Capsule Take 1 capsule by mouth 2 times daily. 02/11/2021 11/29/2023 metoprolol succinate XL (Toprol-XL) 100 mg Tablet Sustained Release 24 hrIndications:Paroxysma l atrial fibrillation Take 1.5 tablets by mouth daily. 135 tablet 1 02/04/2021 08/01/2021 flu vacc [id number],65yr up,/PF (FluZONE HighDose Quad 20-21 PF) 240 mcg/0.7 mL Syringe seasonal 07/23/202004/01 Xarelto 20 mg Tablet TK 1 T PO QD 03/26/2020 022 acetaminophen (TYLENOL) 500 mg Tablet Take 2 tablets by mouth every 6 hours. 11/17/2019 05/15/2021 oxyCODONE (ROXICODONE) 10 mg Tablet Take 1-2 [...] AM EDT Hospital Encounter Non-[place] [address] Arrived 02/22/2025 1:30 PM EDT Appointment Hematology and Oncology at [place] [phone] 02/22/2025 2:30 PM EDT Office Visit Hematology [place] [address] Ellis Childers MD [facility] [address] [place] [address] Felicita Landa APRN [facility] [address] [place] [address] documented as of this encounter Procedures Procedure Name Priority Date/Time Associated Diagnosis Comments XR FINGER(S) MIN 2 VIEWS RIGHT Routine 02/21/2021 2:31 PM EDT Trigger finger, right middle finger documented in this encounter Results * XR Fingers Min 2 views Right (Generic) (02/21/2021 2:31 PM EDT) Anatomical Region Laterality Modality Hand Right Digital Radiogra phy Impressions 02/21/2021 3:43 PM EDT 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 Otherwise normal right middle finger radiographs. Thank you for letting us participate in the care of this patient. ??If you are a health care provider and have any questions regarding this report, please contact the number below. ??For patients who have questions please contact the health care coordinator that requested your imaging first. ? Electronically signed by: Lisa Aguilar MD, [facility] ([phone]), at 02/21/2021 3:43 PM Narrative 02/21/2021 3:43 PM EDT EXAMINATION: XR FINGERS MIN 2 VIEWS RIGHT (GENERIC) CLINICAL HISTORY: TRIGGER FINGER FOR RIGHT MIDDLE FINGER TECHNIQUE: 3 views RIGHT finger COMPARISON: Bilateral hand radiographs November 30, 2007 FINDINGS: Bones are intact with normal mineralization. No erosion or periostitis. Joint space narrowing is accompanied by osteophytes at the triscaphe and basal joints. Remaining joints have preserved spacing and alignment. No focal soft tissue abnormality. Procedure Note Lisa Aguilar MD - 02/21/2021 EXAMINATION: XR FINGERS MIN 2 VIEWS RIGHT (GENERIC) CLINICAL HISTORY: TRIGGER FINGER FOR RIGHT MIDDLE FINGER TECHNIQUE: 3 views RIGHT finger COMPARISON: Bilateral hand radiographs November 30, 2007 FINDINGS: Bones are intact with normal mineralization. No erosion or periostitis. Joint space narrowing is accompanied by osteophytes at the triscaphe andbasal joints. Remaining joints have preserved spacing and alignment. No focal soft tissue abnormality. 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 Otherwise normal right middle fingerradiographs. Thank you for letting us participate in the care of this patient. If youare a health care provider and have any questions regarding this report,please contact the number below. For patients who have questions please contactthe health care coordinator that requested your imaging first. Electronically signed by: Lisa Aguilar MD, [facility]([phone]), at 02/21/2021 3:43 PM Jovan Duong MD IMG DX ORDERABLES documented in this encounter Visit Diagnoses Diagnosis Trigger finger, right middle finger documented in this encounter Care Teams Landscape Artist Relationship Specialty Start Date End Date Radha Mckeon MD [address] [place] [address] PCP - General 09/23/10 documented as of this encounter
--- OUTSIDE RECORDS SUMMARY | 2024-07-24 17:25 | XMS_ITS | Encounter Summary ---
Author Organization [facility] [place] [address] Care Team Providers Care Drawing In Hand Name Role Phone Radha Mckeon MD Primary Care Provider [phone] Encounter Details Date Type Department Care Team (Latest Contact Info) Description 05/15/2021 8:34 AM EDT - 05/15/2021 2:04 PM EDT Hospital [place] [address] Jovan Duong MD [facility] [place] [address] Trigger middle finger of right hand Discharge Disposition: Home Social History Tobacco Use [...] Sign Reading Time Taken Comments Blood Pressure 126/84 05/15/2021 1:45 PM EDT Pulse 56 05/15/2021 1:15 PM EDT Temperature 36.6 ??C (97.9 ??F) 05/15/2021 1:45 PM ED T Respiratory Rate 16 05/15/2021 1:45 PM EDT Oxygen Saturation 96% 05/15/2021 1:45 PM EDT Inhaled Oxygen Concentration - - Weight 80.2 kg (176 lb 12.8 oz) 05/15/2021 9:36 AM EDT Height 182.9 cm (6') 05/15/2021 9:07 AM EDT Body Mass Index 23.98 05/15/2021 9:07 AM EDT documented in this encounter Discharge Instructions * Patient Instructions* Manoj Tomas MD - 05/15/2021 11:30 AM EDT Orthopaedic Hand Surgery Same Day Discharge Instructions: General Activities ?? Diet: Start light and progress as tolerated. No alcoholic beverages on the day of surgery or while taking narcotics. If taking narcotics, make sure you are getting plenty of fluids and fiber. ?? In general, care should be taken the first several days following surgery to limit strenuous activity. You want to avoid any activities that you may lose your balance, slip, trip, fall or re-injure your surgery. ?? You may shower tomorrow. Cover your dressing/cast with a plastic bag to keep it dry. ?? No driving while taking narcotic medications or wearing a device (splint, cast, sling, brace) that limits joint mobility. When you feel you can safely control your vehicle and respond to unpredictable situations you may resume driving. Hand Use ?? Decreased sensation for several hours following surgery is often from the local anesthesia used during the procedure. This will resolve on its own. ?? If a regional anesthetic was used, wear your sling until you regain full function of your limb, and keep a close eye on the positioning of your arm and hand. When you have regained function and sensation you may then remove the sling. ?? Do not use your operative hand for any lifting, pushing or pulling anything greater than a cup of coffee. You may move your elbow and shoulder as tolerated. ?? Gentle exercises with any exposed fingers are encouraged and gently opening and closing the digits will keep the joints flexible. Specific activities and exercises will be discussed at your first postoperative visit. Ice and elevation ?? Some swelling is expected after surgery. Elevation is the best remedy to reduce swelling and pain. Keep your hand properly elevated above the level of the heart i.e., fingers above palm, palm above the wrist, wrist above the elbow. Use pillows to increase elevation. ?? Do not rely on a sling as it does not sufficiently elevate your hand. For proper elevation whilewalking around place your surgical hand on your opposite shoulder. Dressing/ Wound: ?? The post-op dressing, splint or cast is a very important part of your treatment. If you have anyquestions please call us for clarification. If your dressing becomes wet or damaged please call theoffice. ?? No creams, lotions or ointments on your incision. Keep steri-strips in place. They will fall offon their own ?? Keep your dressing on and dry for 1 week then you may remove. Cover your suture/incision with a Band-Aid and change as needed. Keep your incision clean and dry until follow-up appointment. Pain Management ?? Most patients only require narcotics for a short period of time. Ice and elevation is an effective and important modality to use in conjunction with your oral pain medication. In a day or two you may be ready to start decreasing the amount of pain medication your taking. Pain medication is to betaken on an ???as needed?if needed?? basis. Remember to start with the least amount and evaluate its effectiveness. ?? You should not drink alcoholic beverages while on pain medication. ?? If tolerated, please take Tylenol three times a day in conjunction with the narcotic as they complement each other. Once pain is better controlled, you may simply take extra strength Tylenol, one to two tablets every six hours as needed. Do not exceed 3,000 mg in 24 hours. ?? The most common side effects of narcotic pain medications are nausea and constipation. To decrease nausea always take pain medication with food. If you are experiencing vomiting, please call us right away. To minimize constipation, drink plenty of fluids, eat a high fiber diet with plenty of fruits and vegetables, and take a stool softener or laxative as needed. You may take an anti-inflammatory medication such as Ibuprofen/Advil/Motrin or Naproxen/Aleve. Refer to the medication bottles for daily allowance and dosing. Discontinue if it causes stomach upset. Contact Information: During clinic hours M-F 8-4:30 please call [phone] If it is after 5:00PM on a weekday or a weekend and it is of an urgent nature please call [phone] and ask for the on-call orthopaedic resident. Call if: 1. You have a fever greater than 101 F or experience chills 2. Increased drainage from incision 3. Redness or extreme swelling around incision 4. Increased pain or change in pain that is not controlled with elevation, ice and your pain medication. 5. Any questions concerns related to surgery Future Appointments Date Time Provider Department Center 05/30/2021 2:30 PM Jovan Duong MD [facility] 06/25/2021 4:15 PM Diogo Robb PA [facility] documented in this encounter Medications at Time [...] QD 04/23/2020 fluticasone propionate (FLONASE) 50 mcg/actuation [place], Suspension INSTILL 1SPRAY IN EACH NOSTRIL TWICE [...] tablet Take 10 mg by mouth nightly. acetaminophen (Tylenol) 500 mg Tablet Take 2 [...] 135 tablet 1 02/04/2021 08/01/2021 flu vacc [id number] up,/PF (FluZONE HighDose Quad 20-21 PF) 240 [...] as of this encounter Progress Notes * Grace Nuñez RN - 05/15/2021 2:04 PM EDT Patient alert and oriented, vital signs stable. Reviewed discharge instructions; patient and Marguerite verbalized understanding. Copy of instruction sheet with contact numbers for questions/concerns with Malik. Pain assessment documented. Patient escorted out of department via wheelchair with RN to personal vehicle. * Grace Pablo RN - 05/15/2021 1:24 PM EDT Pt with full sensation to right thumb and pinky. Middle 3 fingers on right hand numb. documented in this encounter H&P Notes * Umer Cortes MD - 05/15/2021 11:05 AM EDT Patient Name: Malik Machado Patient Age: 71 y.o. Birthdate: 1950 Admit date: 05/15/2021 Attending Physician: Jovan Duong MD 24-HOUR H&P UPDATE Malik Machado was seen and evaluated. No interval events or changes in health status since preoperative H+P. Denies angina, dyspnea, fevers, chills, or malaise within the last 14 days. All questionswere answered. Stable for surgery as scheduled. Alert and oriented RRR CTAB R long finger triggers and TTP over volar MCP Malik Machado is a 71 y.o. male with triggering of right long finger pended for trigger finger release. I discussed with the patient the risks, benefits, alternatives to operative management. Specifically I discussed the risks that included but were not limited to infection, bleeding, damage to surrounding nerves and vessels, blood clots, fracture related complications to include nonunion, malunion, m alrotation, revision of hardware, removal of hardware, cardiac and pulmonary complications related to general anesthesia, and . The patient elected to proceed with the above operative intervention. All questions were answered. I reviewed consent and ensured the patient was properly marked. Umer Cortes MD Orthopaedic Surgery [facility] documented in this encounter Miscellaneous Notes * Brief Op Note - Manoj Tomas MD - 05/15/2021 12:22 PM EDT Brief Operative Note Patient Name: Malik Machado : [id number] MR#: [id number] Case Date: 05/15/2021 Surgeon: Surgeon(s) and Role: * Jovan Duong MD - Primary * Manoj Tomas MD - Resident * Umer Cortes MD - Resident Preoperative diagnosis: Right Long Finger Trigger Postoperative diagnosis: Right Long Finger Trigger Procedure: 1. Right long finger A1 kayla release Anesthesia: MAC and local Findings: Superficial scarring volar to right long finger A1 kayla. A1 kayla incised with full release. Adhesions between FDS and FDP removed. Esmark tourniquet over forearm for 14 minutes. Complications: none Estimated Blood Loss: 2cc Specimens removed during surgery: None Fluids: 700cc PRBCs: none (See Anesthesia Record/Report for Other Blood Products) Urine Output: (no urine output recorded) Drains: none Disposition: awakened from anesthesia, extubated and taken to the recovery room in a stable condition, having suffered no apparent untoward event. Condition: doing well without problems (Please see the Surgical Encounter Summary for any Implant and Specimen details pertinent to this patient.) Infection Bundle used? N/A * Op Note - Jovan Duong MD - 05/15/2021 12:02 PM EDT [facility] Operative Note Patient Name: Malik Machado : [id number] MR#: [id number] Case Date: 05/15/2021 Surgeon: Surgeon(s) and Role: * Jovan Duong MD - Primary * Manoj Tomas MD - Resident * Umer Cortes MD - Resident Preoperative diagnosis: Right Long Finger Trigger Postoperative diagnosis: Right Long Finger Trigger Procedure(s) (LRB): TENDON SHEATH INCISION (TRIGGER FINGER) (WRVU 3.11) (Right) Anesthesia: MAC Estimated Blood Loss: 2 mL Specimens removed during surgery: None Drains: * [...] and Specimen details pertinent to this patient.) HPI/Surgical Indications: 71-year-old man with right long finger pain catching locking. He had failed previous steroid injection with persistent symptoms. Today he was evaluated in the preoperative area and now has active locking and catching of his finger with worsening symptoms. He was indicated again for trigger finger release right long finger. I did offer wide-awake but he preferred to be sedated. Procedure Description: The patient was met in the pre-operative holding area where the appropriate site was marked, 24 hour update completed, and the pre- operative checklist completed. Informed consent was yet again reviewed. The patient was then brought to the operating room on a stretcher where the above anesthetic was administered. A clinical time-out was held confirming the correct patient name, MRN, , planned procedure, site, antibiotic start time and agent, DVT prophylaxis, and outlineof any surgical concerns. All in attendance were in agreement to proceed. The operative extremity was prepped and draped in normal sterile fashion. An Esmarch was used to exsanguinate the arm and uses a forearm tourniquet. A 1.5 cm longitudinal incision was made over the A1 kayla. We used bipolar cautery to control any vessels in the fat. We did identify moderate scarring above the flexor tendon sheath. Blunt dissection was performed to protect and retract neurovascular bundles. We then longitudinally incised with knife A1 kayla. Both leaflets were visualized to confirm complete release. A few millimeters of proximal fascia were also released. Approximately 2 mm distal was also released up to the A2 kayla. FDPand FDS were pulled out from the wounds, intact with no significant synovitis. The pulleys themselves did have moderate thickening. The tourniquet was let down, 14 minutes. The wound was copiously irrigated with normal saline. There was no significant bleeding at this. All fingers are pink and well-perfused. The wound was closed with horizontal mattress 4-0 nylon suture. Sterile dressings applied, Xeroform, gauze, web roll, Johnie wrap. He awoke in stable condition without complication. Infection Bundle used? N/A Attestation: Case Date: 05/15/2021 I was present and I participated during the entire procedure. Jovan Duong MD, MPH Pediatric Orthopaedics Hand & Upper Extremity Surgeon [facility] 05/15/2021 documented in this encounter Plan of Treatment Upcoming Encounters Date Type Department Care Team (Late st Contact Info) Description 08/18/2024 11:00 AM EDT Hospital Encounter [place] [address] Arrived 02/22/2025 1:30 PM EDT Appointment Hematology [place] [address] 02/22/2025 2:30 PM EDT Office Visit Hematology [place] [address] Ellis Childers MD [facility] [place] [address] Felicita Landa APRN [facility] [place] [address] documented as of this encounter Procedures Procedure Name Priority Date/Time Associated Diagnosis Comments TENDON SHEATH INCISION (TRIGGER FINGER) (WRVU 3.11) 05/15/2021 11:51 AM EDT Trigger middle finger of right hand TENDON SHEATH INCISION (TRIGGER FINGER) Routine 05/15/2021 8:53 AM EDT Trigger middle finger of right hand documented in this encounter Visit Diagnoses Diagnosis s/p right long finger A1 kayla release for trigger finger 05/15/21 (Dr Duong)- Primary Trigger middle finger of right hand Trigger finger (acquired) documented in this encounter Administered Medications Inactive Administered Medications - up to 3 most recent administrations Medication Order MAR Action Action Date Dose Rate Site lactated ringers infusion 1,000 mL, at 100 mL/hr, Intravenous, CONTINUOUS, Starting on Zakia 05/15/21 at 1215, Until Zakia 05/15/21 at 1658, Day of Surgery (Day of Procedure) lidocaine (Xylocaine) 1% (10 mg/mL) injection 3 mg 3 mg (0.3 mL), Subcutaneous, ONCE PRN, 1 dose, Starting on Zakia 05/15/21 at 1145, Until Zakia 05/15/21 at 1658, for discomfort with PIV insertion, Day of Surgery (Day of Procedure), Routine sodium chloride 0.9 % (flush) (BD PosiFlush Normal Saline 0.9) flush 5-20 mL 5-20 mL, Intravenous, EVERY 1 MIN PRN, Starting on Zakia 05/15/21 at 1145, Until Zakia 05/15/21 at 1658, flush, Flush pertains to all indwelling lines. Flush per protocol found in the job aid using the link provided on this medication record., Day of Surgery (Day of Procedure), Routine documented in this encounter Active and Recently Administered Medications Times are shown in EDT. Scheduled Medication Order 05/13/2021 05/14/2021 05/15/2021 ceFAZolin (Ancef) 2 g in dextrose 5% 100 mL infusion 2 g, Intravenous, ONCE, 1 dose, On Zakia 05/15/21 at 1200, Administer over 30 Minutes, Indication for (Active or Suspected): Prophylaxis 1200 (Due) Continuous Medication Order 05/13/2021 05/14/2021 05/15/2021 lactated ringers infusion 1,000 mL, at 100 mL/hr, Intravenous, CONTINUOUS, Starting on Zakia 05/15/21 at 1215, Until Zakia 05/15/21 at 1658, Day of Surgery (Day of Procedure) 1215 (Due) PRN Medication Order 05/13/2021 05/14/2021 05/15/2021 BUpivacaine (pf) (Marcaine) (2.5 mg/mL) 0.25% injection (CANCELED) ONCE PRN, Starting on Zakia 05/15/21 at 1205, Until Zakia 05/15/21 at 1658, Intra-Operative (Intra-Procedure), Routine 1205 (Given - Provid er: Umer Cortes MD)1232 (Given - Provider: Umer Cortes MD) lidocaine (Xylocaine) 1% (10 mg/mL) injection 3 mg 3 mg (0.3 mL), Subcutaneous, ONCE PRN, 1 dose, Starting on Zakia 05/15/21 at 1145, Until Zakia 05/15/21 at 1658, for discomfort with PIV insertion, Day of Surgery (Day of Procedure), Routine lidocaine (Xylocaine) 1% (10 mg/mL) injection (CANCELED) ONCE PRN, Starting on Zakia 05/15/21 at 1205, Until Zakia 05/15/21 at 1658, Intra-Operative (Intra-Procedure), Routine 1205 (Given - Provid er: Umer Cortes MD)1232 (Given - Provider: Umer Cortes MD) sodium chloride 0.9 % (flush) (BD PosiFlush Normal Saline 0.9) flush 5-20 mL 5-20 mL, Intravenous, EVERY 1 MIN PRN, Starting on Zakia 05/15/21 at 1145, Until Zakia 721 at 1658, flush, Flush pertains to all indwelling lines. Flush per protocol found in the job aid using the link provided on this medication record., Day of Surgery (Day of Procedure), Routine documented in this encounter Care Teams Drawing In Hand Relationship Specialty Start Date End Date Radha Mckeon MD [address] [place] [address] PCP - General 09/23/10 documented as of this encounter
--- OUTSIDE RECORDS SUMMARY | 2024-07-24 17:25 | XMS_ITS | Encounter Summary ---
Author Organization [place] [address] Care Team Providers Care Director Technical Name Role Phone Radha Mckeon MD Primary Care Provider [phone] Reason for Visit * Reason Comments Follow-up TRIGGER FINGER FOR R IGHT MIDDLE FINGER Encounter Details Date Type Department Care Team (Late st Contact Info) Description 03/25/2021 11:30 AM EDT Office [place] [address] [facility] [place] [address] Trigger middle finger of right hand Social [...] Sign Reading Time Taken Comments Blood Pressure 146/77 03/25/2021 11:35 AM EDT Pulse 49 03/25/2021 11:35 AM EDT Temperature - - Respiratory Rate - - Oxygen Saturation - - Inhaled Oxygen Concentration - - Weight 83.5 kg (184 lb 1.4 oz) 03/25/2021 11:35 AM EDT Height 182.9 cm (6' 0.01) 03/25/2021 11:35 AM E DT Body Mass Index 24.96 03/25/2021 11:35 AM EDT documented in this encounter Progress Notes * Jovan Duong MD - 03/25/2021 11:30 AM EDT Orthopaedic Clinic Progress Note DATE OF VISIT: 03/25/21 CHIEF COMPLAINT: Chief Complaint Patient presents with ??? Follow-up TRIGGER FINGER FOR RIGHT MIDDLE FINGER HPI: Malik Machado is a 70 y.o. male patient who presents to the orthopaedic clinic for a follow-up appointment. He is followed for right long finger pain, catching and locking, suspected trigger finger. He had a steroid injection 1 month ago. He states it continued to catch and occasionally be locked in flexion. He feels the swelling and pain have improved but not the locking. It is not locking herein the office he states but it does catch and lock at home. He states usually in the morning it is stuck and he has to pop it open. He endorses a clear pop when he does that with associated pain. Denies any numbness or tingling. Denies injuries to the finger. His pain distally in the finger also improved after injection. He is scheduled for cervical steroid injection and potential C-spine surgery he states in the future. MEDICATIONS: Current Outpatient Medications: ??? pregabalin (LYRICA) 100 mg Capsule, Take 1 capsule by mouth 2 times daily., Disp: , Rfl: ??? metoprolol succinate XL (Toprol-XL) 100 mg Tablet Sustained Release 24 hr, Take 1.5 tablets by mouth daily., Disp: 135 tablet, Rfl: 1 ??? flu vacc [id number] up,/PF (FluZONE HighDose Quad 20-21 PF) 240 mcg/0.7 mL Syringe, seasonal, Disp: , Rfl: ??? lidocaine-prilocaine (EMLA) Cream, as needed., Disp: , Rfl: ??? polyethylene glycoL (Miralax) 17 gram Powder in Packet, Take 17 g by mouth as needed., Disp: , Rfl: ??? senna-docusate (Pericolace) 8.6-50 mg Tablet, Take 2 tablets by mouth as needed., Disp: , Rfl: ??? acyclovir (ZOVIRAX) 200 mg Capsule, 1 capsule as needed. Indications: prn, Disp: , Rfl: ??? diclofenac (VOLTAREN) 1 % Gel, Apply topically Once daily as needed., Disp: , Rfl: ??? tamsulosin (Flomax) 0.4 mg Capsule, TK 1 C PO QD, Disp: , Rfl: ??? fluticasone propionate (FLONASE) 50 mcg/actuation [place], Suspension, INSTILL 1SPRAY IN EACH NOSTRIL TWICE A DAY, Disp: , Rfl: ??? Xarelto 20 mg Tablet, TK 1 T PO QD, Disp: , Rfl: ??? lamoTRIgine (LAMICTAL) 25 mg Tablet, Take 50 mg by mouth 2 times daily., Disp: , Rfl: ??? Triamcinolone Acetonide 0.025 % Lotion, Apply topically as needed., Disp: , Rfl: ??? omeprazole (PRILOSEC) 20 mg Capsule, Delayed Release(E.C.), Take 20 mg by mouth 2 times daily.,Disp: , Rfl: ??? BOTOX 200 unit Recon Soln, Inject 200 Units as directed Q 3 Months., Disp: , Rfl: ??? verapamil (CALAN-SR) 120 mg Tablet Sustained Release, Take 1 tablet by mouth daily. (Patient taking differently: Take 120 mg by mouth nightly.), Disp: 90 tablet, Rfl: 3 ??? levothyroxine (SYNTHROID) 100 mcg Tablet, Take 100 mcg by mouth daily., Disp: , Rfl: ??? MULTIVITAMIN W-MINERALS/LUTEIN (CENTRUM SILVER ORAL), Take 1 tablet by mouth., Disp: , Rfl: ??? [place]-3 Fatty Acids-Vitamin E (FISH OIL) 1,000 mg Cap, Take 2,000 mg by mouth daily., Disp: , Rfl: ??? baclofen (LIORESAL) 10 mg tablet, Take 10 mg by mouth nightly as needed., Disp: , Rfl: ??? simvastatin (ZOCOR) 10 mg tablet, Take 10 mg by mouth nightly., Disp: , Rfl: ??? acetaminophen (TYLENOL) 500 mg Tablet, Take 2 tablets by mouth every 6 hours. (Patient not taking: Reported on 03/25/2021), Disp: , Rfl: ??? oxyCODONE (ROXICODONE) 10 mg Tablet, Take 1-2 tablets by mouth every 3 hours as needed (mild pain (1-3) take 10 mg, moderate pain (4-6) take 15 mg, severe pain (7-10) take 20 mg). (Patient not taking: Reported on 03/25/2021), Disp: , Rfl: ??? SUMAtriptan (IMITREX) 100 mg Tablet, Take 100 mg by mouth as needed for Migraine. Initial dose:25 mg, 50 mg, or 100 mg (take with fluids). May repeat dose after 2 hours. Max daily dose: 200 mg, Disp: , Rfl: ALLERGIES: Allergies Allergen Reactions ??? Zolpidem Other reaction(s): bad dreams ??? Atorvastatin Other (See Comments) Adverse effect caused liver enzyme abnormalitiies ??? Elavil [Amitriptyline] Palpitations ??? Flecainide Other (See Comments) Adverse effect caused [place] and QRS prolongation PHYSICAL EXAM: Temp: -- Heart Rate: [49] BP: (146)/(77) Body mass index is 24.96 kg/m??. No acute distress Affect within normal limits for age Alert and oriented Speech clear and intact, appropriate for age Head atraumatic Respirations unlabored Brisk capillary refill peripheral bilateral upper extremities, warm and well perfused Right hand examined: Minimal swelling or ecchymosis. Moderate tenderness to palpation over A1 kayla. Sensation intact to light touch throughout the long finger No active catching or locking in the office today Trace clicking through the finger during flexion. Nontender distally in the finger FDP, FDS, EDC all fire and intact long finger. IMAGING: None obtained today. Prior x-rays reviewed again without significant arthritis or deformity MP joint. ASSESSMENT and PLAN: This is a 70 y.o. male seen in follow-up for right long finger base pain locking, catching most consistent with trigger finger. We discussed again the likely diagnosis of trigger digit however I did discuss there may be associated either mild arthritis or other etiologies of pain. However his history is most consistent with trigger finger and his mild improvement after injection is consistent with this. He is however still c atching and locking, it is an almost daily problem for him. I reviewed management options at this time. I suggested continued observation would be a reasonable option if he would like to continue symptomatic relief and potential improvement with time. His symptoms have been going on for a few months. However if he is having daily trouble and would like a more definitive plan we can proceed with operative release. I did child guidance counselor him on the risks and especially with his atypical presentation potential for persistent symptoms or another etiology. However the overall presentation was suggestive enough of trigger finger that it would be reasonable to proceed with surgery. Risks include but are not limited to bleeding, infection, damage to nerves and vessels, damage to tendon, persistence or recurrence, wound healing problems, bleeding particularly with him on blood thinners, need for additional surgery. I discussed we would not necessarily need to stop his blood thinner prior to surgery, may use tourniquet during the procedure and cautery as needed. He may have swelling and bruising after the procedure but recent evidence suggest continuing these medications. We discussed postoperative care of dressings for likely 1 week. He did want to proceed with surgical scheduling. PLAN: -Surgery: Right long finger trigger release, wide-awake if tolerated otherwise he will have discussion with anesthesia about light sedation. -Surgical consent and paperwork completed today -Activity as tolerated until then We did discuss with his upcoming cervical steroid injection, would recommend waiting at least 1 month for surgery after injection. If he has further C-spine issues he will call our office to adjust trigger finger surgery timing. All questions were answered, and the patient/family were satisfied with the discussion. They know to call sooner with any questions or concerns. Follow-up: For surgery Jovan Duong MD, MPH Department of Orthopaedic Surgery Pediatric Orthopaedic & Hand Surgeon documented in this encounter Plan of Treatment Upcoming Encounters Date Type Department Care Team (Late st Contact Info) Description 08/18/2024 11:00 AM EDT Hospital Encounter [place] [address] Arrived 02/22/2025 1:30 PM EDT Appointment Hematology [place] [phone] 02/22/2025 2:30 PM EDT Office Visit Hematology [place] [address] [facility] [address] [place] [address] [facility] [place] [address] documented as of this encounter Visit Diagnoses Diagnosis Trigger middle finger of right hand Trigger finger (acquired) documented in this encounter Care Teams Director Technical Relationship Specialty Start Date End Date Radha Mckeon MD [address] [place] [address] PCP - General 09/23/10 documented as of this encounter
--- OUTSIDE RECORDS SUMMARY | 2024-07-24 17:25 | XMS_ITS | Encounter Summary ---
Author Organization [place] [address] Care Team Providers Care Lock Technician Name Role Phone Radha Mckeon MD Primary Care Provider Encounter Details Date Type Department Care Team (Late st Contact Info) Description 03/26/2021 Telephone [facility] [place] [id number] Sera Lau RN Social History Tobacco Use Types Packs/Day [...] encounter Miscellaneous Notes * Telephone Encounter - Sera Lau RN - 03/26/2021 10:43 AM EDT Malik Machado :1950 Contact made with patient: I spoke to Mr. Machado at 10:43 AM regarding upcoming Neither cervical epidural steroid injection scheduled on 03/28/21 (date) scheduled at 1145 (time) with Dr. Librado Robles DO. Medication and Allergy reconciliation: 1. Changes were made in the telephone encounter per patient; marked as reviewed, and closed. 3. Have you had any steroid injections anywhere in your body within the last two weeks? no Arrival time: The patient was instructed to arrive at 1115 (30 minutes prior to procedure start time - 60 minutesprior for RF patients with a pacemaker). Antibiotics/Skin assessment/Illness symptoms/Pain level assessment : 1. Are you currently taking an antibiotic for any active infections No 2. Do you currently have any rashes, blisters, skin breakdown or open wounds. No 5. Have you received, or are you scheduled to received a COVID vaccination Yes Pain and Anti-anxiety Medications: 1. Nerve Block Procedure Patients: Patient was instructed NOT to take their pain medications on theday of the procedure and anti-anxiety medications are part of their daily medication regiment; theycan and should continue taking that medication. 2. All Other Procedure Patients: The patient was instructed that if they take daily pain or anti-anxiety medications, they can and should continue taking on the day of the procedure. Does patient have history of any diagnosed bleeding disorders: No Anticoagulants: Yes . Pt stopped his Xarelto yesterday 03/25. NSAIDs: Does the patient take Aspirin/ASA? No Does the patient take an NSAID? Yes . Pt takes fish oil and has no discontinued it. Will send message to Dr. Robles to see if pt needs to reschedule. Diabetic instructions: Patient was advised to inform their PCP regarding safe fasting and the NPO requirements for their upcoming procedure and given the [facility] Nurse Triage Line . Implant: Patient has pacemaker/defibrillator: Pt has implantable loop recorder. NPO instructions given to patient: 1. Last solid food intake until 0545 (6 hours prior to procedure). 2. Clear liquids (christina becca, tea, black coffee, water, grape juice, apple juice, or cranberry juice) only intake until 0945 (2 hours prior to procedure). Da HIRSCH documented in this encounter Plan of Treatment Upcoming Encounters Date Type Department Care Team (Late st Contact Info) Description 08/18/2024 11:00 AM EDT Hospital Encounter Non-Invasive [place] [address] Arrived 02/22/2025 1:30 PM EDT Appointment Hematology and Oncology at [place] [address] 02/22/2025 2:30 PM EDT Office Visit Hematology [place] [address] Ellis Childers MD [facility] [address] [place] [address] Felicita Landa APRN [facility] [address] [place]AT[place] [address] documented as of this encounter Visit Diagnoses Not on filedocumented in this encounter Care Teams Lock Technician Relationship Specialty Start Date End Date Radha Mckeon MD [address] [place] [address] PCP - General 09/23/10 documented as of this encounter
--- OUTSIDE RECORDS SUMMARY | 2024-07-24 17:25 | XMS_ITS | Encounter Summary ---
Author Organization [facility] [address] Care Team Providers Care Rfid Analyst Name Role Phone Radha Mckeon MD Primary Care Provider [phone] Encounter Details Date Type Department Care Team (Late st Contact Info) Description 05/15/2021 10:08 AM EDT - 05/15/2021 11:21 AM EDT Surgery [place] [address] Jovan Duong MD [facility] [place] [address] TENDON SHEATH INCISION (TRIGGER FINGER) (WRVU 3.11) [...] Sign Reading Time Taken Comments Blood Pressure 106/89 05/15/2021 9:07 AM EDT Pulse 53 05/15/2021 9:07 AM EDT Temperature 36.2 ??C (97.2 ??F) 05/15/2021 9:07 AM ED T Respiratory Rate 16 05/15/2021 9:07 AM EDT Oxygen Saturation 100% 05/15/2021 9:07 AM EDT Inhaled Oxygen Concentration - - Weight 80.2 kg (176 lb 12.8 oz) 05/15/2021 9:36 AM EDT Height 182.9 cm (6') 05/15/2021 9:07 AM EDT Body Mass Index 23.98 05/15/2021 9:07 AM EDT documented in this encounter Discharge Instructions * Patient Instructions* Manjo Tomas MD - 05/15/2021 11:30 AM EDT [...] During clinic hours M-F 8-4:30 please call [phone] If it is after 5:00PM on a weekday or a weekend and it is of an urgent nature please call [phone] and ask for the on-call orthopaedic resident. [...] Center 05/30/2021 2:30 PM Jovan Duong MD [facility] ORTH 3A [facility] 06/25/2021 4:15 PM Diogo Robb PA [facility] CARD 4A [facility] documented in this encounter Medications at Time [...] QD 04/23/2020 fluticasone propionate (FLONASE) 50 mcg/actuation [place], Suspension INSTILL 1SPRAY IN EACH NOSTRIL TWICE [...] 135 tablet 1 02/04/2021 08/01/2021 flu vacc [id number] up,/PF (FluZONE HighDose Quad 20-21 PF) 240 [...] properly marked. Umer Cortes MD Orthopaedic Surgery [facility] documented in this encounter Miscellaneous Notes * Brief Op Note - Manoj Tomas MD - 05/15/2021 12:22 PM EDT Brief Operative Note Patient Name: Malik Machado DOB: [id number] MR#: [id number] Case Date: 05/15/2021 Surgeon: Surgeon(s) and Role: [...] Duong MD - 05/15/2021 12:02 PM EDT [facility] Operative Note Patient Name: Malik Machado : [id number] MR#: [id number] Case Date: 05/15/2021 Surgeon: Surgeon(s) and Role: [...] Pediatric Orthopaedics Hand & Upper Extremity Surgeon [facility] 05/15/2021 documented in this encounter Plan of Treatment Upcoming Encounters Date Type Department Care Team (Late st Contact Info) Description 08/18/2024 11:00 AM EDT Hospital Encounter Non-[place] [address] Arrived 02/22/2025 1:30 PM EDT Appointment Hematology [place] [address] 02/22/2025 2:30 PM EDT Office Visit Hematology [place] [phone] Ellis Childers MD [facility] [place]OLOGY [place] [address] Felicita Landa APRN [facility] [place] [address] documented as of this encounter Procedures Procedure Name Priority Date/Time Associated Diagnosis Comments TENDON SHEATH INCISION (TRIGGER FINGER) (WRVU 3.11) 05/15/2021 11:51 AM EDT Trigger middle finger of right hand TENDON SHEATH INCISION (TRIGGER FINGER) Routine 05/15/2021 8:53 AM EDT Trigger middle finger of right hand documented in this encounter Visit Diagnoses Diagnosis Trigger middle finger of right hand Trigger finger (acquired) Trigger middle finger of right hand Trigger finger (acquired) documented in this encounter Administered Medications Inactive Administered Medications - up to 3 most recent administrations Medication Order MAR Action Action Date Dose Rate Site BUpivacaine (pf) (Marcaine) (2.5 mg/mL) 0.25% injection ONCE PRN, Starting on Zakia 05/15/21 at 1205, Until Zakia 05/15/21 at 1658, Intra-Operative (Intra-Procedure), Routine Given 05/15/2021 12:32 PM EDT 2.5 mLs 19- Surgical Site Given 05/15/2021 12:05 PM EDT 2.5 mLs 1 9- Surgical Site lactated ringers infusion 1,000 mL, at [...] Routine lidocaine (Xylocaine) 1% (10 mg/mL) injection ONCE PRN, Starting on Zakia 05/15/21 at 1205, Until Zakia 05/15/21 at 1658, Intra-Operative (Intra-Procedure), Routine Given 05/15/2021 12:32 PM EDT 2.5 mLs 19- Surgical Site Given 05/15/2021 12:05 PM EDT 2.5 mLs 1 9- Surgical Site sodium chloride 0.9 % (flush) (BD PosiFlush [...] at 100 mL/hr, Intravenous, CONTINUOUS, Starting on Zaika 05/15/21 at 1215, Until Zakia 05/15/21 at [...] Routine documented in this encounter Care Teams Rfid Analyst Relationship Specialty Start Date End Date Radha Mckeon MD [address] [place] [address] PCP - General 09/23/10 documented as of this encounter
--- OUTSIDE RECORDS SUMMARY | 2024-07-24 17:25 | XMS_ITS | Encounter Summary ---
Author Organization [facility] [place] [address] Care Team Providers Care Referral Rn Name Role Phone Radha Mckeon MD Primary Care Provider [phone] Encounter Details Date Type Department Care Team (Late st Contact Info) Description 05/21/2021 Telephone [place] [phone] Esha Gamboa, RN Social History Tobacco Use [...] Miscellaneous Notes * Telephone Encounter - Esha Gamboa, RN - 05/21/2021 1:12 PM EDT In coming call to triage from Malik stating that he had surgery on his hand on 05/15/2021 and is scheduled for KATIE with Dr Robles on 05/30/2021. I told him that he needs to be rescheduled do to steroids decrease the healing process and he needs to have that finger healed before getting that steroid injection. I transferred his call to the schedulers. I told him that I will let Dr Robles know what has taken place. Please advise. documented in this encounter Plan of Treatment Upcoming Encounters Date Type Department Care Team (Late st Contact Info) Description 08/18/2024 11:00 AM EDT Hospital Encounter [place] [address] Arrived 02/22/2025 1:30 PM EDT Appointment Hematology [place] [address] 02/22/2025 2:30 PM EDT Office Visit Hematology and Oncology at [address] Ellis Childers MD [facility] [place] [address] Felicita Landa APRN [facility] [place] [address] documented as of this encounter Visit Diagnoses Not on filedocumented in this encounter Care Teams Referral Rn Relationship Specialty Start Date End Date Radha Mckeon MD [address] [place] [address] PCP - General 09/23/10 documented as of this encounter
--- OUTSIDE RECORDS SUMMARY | 2024-07-24 17:25 | XMS_ITS | Encounter Summary ---
[place] [address] Care Team Providers Care Radio Equipment Installer Name Role Phone Radha Mckeon MD Primary Care Provider Reason for Referral * Physical Therapy (Routine) - Specialty Diagnoses / Procedures Referred By Becki guillory Referred To Contact Diagnoses Neck pain Numbness and tingling in left arm Sera White APRN [facility] [place] [address] Referral ID Status Reason Start Date Expiration Date V isits Requested Visits Authorized [id number] Evaluate and Treat 12/05/2020 06/03/2021 12 12 * Consultation (Routine) - Closed Specialty Diagnoses / Procedures Referred By Becki guillory Referred To Contact [facility] Diagnoses Neck pain Numbness and tingling in left arm Srea White APRN [facility] [place] [address] [facility] Pain [facility] [place] [address] Referral ID Status Reason Start Date Expiration Date V isits Requested Visits Authorized [id number] Closed Consult, Test & Treat 12/05/2020 12/05/2021 3 3 Reason for Visit * Reason Comments Neck Pain new patient Back Pain Encounter Details Date Type Department Care Team (Late st Contact Info) Description 12/05/2020 2:30 PM EST Office Visit [facility] at [facility] [place] [address] Sera White APRN [facility] [place] [address] Neck pain; Numbness and tingling in left [...] Sign Reading Time Taken Comments Blood Pressure 140/68 12/05/2020 2:38 PM EST Pulse 59 12/05/2020 2:38 PM EST Temperature 36.7 ??C (98 ??F) 12/05/2020 2:38 PM EST Respiratory Rate - - Oxygen Saturation 99% 12/05/2020 2:38 PM EST Inhaled Oxygen Concentration - - Weight 78 kg (172 lb) 12/05/2020 2:38 PM EST Height - - Body Mass Index 23.5 12/02/2020 2:21 PM EST documented in this encounter Patient Instructions * Patient Instructions* Sera White APRN - 12/05/2020 2:30 PM EST Refer to Spine surgeon for evaluation with flexion/extension films Refer to [facility] - see list of therapist documented in this encounter Progress Notes * Sera White, CLASSIFICATION OFFICER - 12/05/2020 2:30 PM EST [facility] VISIT Date of Visit: December 10, 2020 Chief Complaint: Chief Complaint Patient presents with ??? Neck Pain new patient ??? Back Pain HPI: Subjective Malik Machado is a 70 y.o. male who presents today for neck pain. He had neck pain that has been gradually getting worse over the past 6 months and he is also having pain that shoots down his left arm to the left hand and fingers 1-2. He also feels like his bicep has been weak on the left side. Patient reports that he has been doing physical therapy for his neck for over 8 weeks with continued pain in his neck and his left arm. Patient has been see in this department in the past by Dr. Lee, Zenaida Orta and Dr. Christiano Ulloa in the past. Patient also reports that he had a referral from his orthopedist to see this provider for his chronic knee pain. See visit dated 03/28/2020 for recommendations for chronic knee pain. Onset: gradual onset Since onset pain is worsened Location: bilateral neck Duration: 6 months Characteristics: Left neck sharp shooting burning pain to his left shoulder area Pins and needles down his left arm Timing: Intermittent Severity: 8/10 now in the left arm Aggravating factors: bending neck backward Turning his head too much to the left makes the pain in his neck worse Bending forward also makes his left arm feel numb Relieving factors: Sleeping. myD-H Pain 10/12/2013 VR12 - Physical Summary Component 20.97 VR12 - Mental Component Summary 63.19 MODEMI Satisfaction 33.33 CURRENT TREATMENTS/INTERVENTIONS - Yes, doing mostly traction and hands on. 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 Marital status: Spouse name: Not on file ??? Number of children: Not on file ??? Years of education: Not on file ??? Highest education level: Not on file Occupational History ??? Not on file Tobacco Use ??? Smoking status: Former Smoker Packs/day: 2.00 Years: 16.00 Pack years: 32.00 Types: Cigarettes Quit date: 11/09/1982 Years since quittin.1 ??? Smokeless tobacco: Never Used Substance and Sexual Activity ??? Alcohol use: [...] of Exercise per Session: Not on file FAMILY HISTORY: Family History Problem Relation Age of Onset ??? Heart Disease Mother ??? Heart Disease Father ??? Cancer Brother 58 panceratic PAST MEDICAL HISTORY: Past Medical History: Diagnosis Date ??? Antiplatelet or antithrombotic long-term use apixaban ??? Chronic back pain greater than 3 months duration ??? Chronic pain spine, has had 3 spine surgeries ??? High blood pressure controlled with medication ??? Hypothyroid treated with medication ??? Irregular heart beat afib ??? halfway current use of opiate analgesic oxycodone, prescribed by PCP ??? Migraine ??? Postoperative anemia due to acute blood loss 11/17/2019 ??? Thrombocytopenia - chronic 12/16/2012 ??? Thrombocytopenia - chronic 12/16/2012 PAST SURGICAL HISTORY: Past Surgical History: Procedure [...] CURVED Procedure Date: 01/14/2010 ??? JOINT REPLACEMENT [id number] ??? PACEMAKER IMPLANT loop recorder ??? PRO REVISE KNEE JOINT REPLACE, ALL PARTS Right 11/15/2019 @TOTAL KNEE REVISION ARTHROPLASTY, COMPLETE (WRVU 27.11) performed by Sukhjinder Jauregui MD at [facility] MAIN OR ??? XR JOINT ASPIRATION - LARGE JOINT RIGHT Right 01/02/2019 XR Fluoro Guided Joint Aspiration Large Right 01/02/2019 [facility] RAD XRAY ALLERGIES: Atorvastatin, Elavil [amitriptyline], and Flecainide MEDICATIONS: Medications 12/05/20 1437 Medication Sig Taking? flu vacc [id number],65yr up,/PF (FluZONE HighDose Quad 20-21 PF) 240 mcg/0.7 mL Syringe seasonal Yes lidocaine-prilocaine (EMLA) Cream as needed. Yes polyethylene glycoL (Miralax) 17 gram Powder in Packet Take 17 g by mouth as needed. Yes senna-docusate (Pericolace) 8.6-50 mg Tablet Take 2 tablets by mouth as needed. Yes acyclovir (ZOVIRAX) 200 mg Capsule 1 capsule. Indications: prn Yes diclofenac (VOLTAREN) 1 % Gel Apply topically Once daily as needed. Yes tamsulosin (Flomax) 0.4 mg Capsule TK 1 C PO QD Yes fluticasone propionate (FLONASE) 50 mcg/actuation [place], Suspension INSTILL 1SPRAY IN EACH NOSTRIL TWICE A DAY Yes Xarelto 20 mg Tablet TK 1 T PO QD Yes metoprolol succinate XL (Toprol-XL) 100 mg Tablet Sustained Release 24 hr Take 1.5 tablets by mouthdaily. Yes acetaminophen (TYLENOL) 500 mg Tablet Take 2 tablets by mouth every 6 hours. Yes oxyCODONE (ROXICODONE) 10 mg Tablet Take 1-2 tablets by mouth every 3 hours as needed (mild pain (1-3) take 10 mg, moderate pain (4-6) take 15 mg, severe pain (7-10) take 20 mg). Patient taking differently: Take 15 mg by mouth as needed (mild pain (1-3) take 10 mg, moderate pain (4-6) take 15 mg, severe pain (7-10) take 20 mg). Yes lamoTRIgine (LAMICTAL) 25 mg Tablet Take 50 mg by mouth 2 times daily. Yes SUMAtriptan (IMITREX) 100 mg Tablet Take 100 mg by mouth as needed for Migraine. Initial dose: 25 mg, 50 mg, or 100 mg (take with fluids). May repeat dose after 2 hours. Max daily dose: 200 mg Yes Triamcinolone Acetonide 0.025 % Lotion Apply topically as needed. Yes omeprazole (PRILOSEC) 20 mg Capsule, Delayed Release(E.C.) Take 20 mg by mouth 2 times daily. Yes BOTOX 200 unit Recon Soln Inject 200 Units as directed Q 3 Months. Yes verapamil (CALAN-SR) 120 mg Tablet Sustained Release Take 1 tablet by mouth daily. Patient taking differently: Take 120 mg by mouth nightly. Yes levothyroxine (SYNTHROID) 100 mcg Tablet Take 100 mcg by mouth daily. Yes MULTIVITAMIN W-MINERALS/LUTEIN (CENTRUM SILVER ORAL) Take 1 tablet by mouth. Yes [place]on-3 Fatty Acids-Vitamin E (FISH OIL) 1,000 mg Cap Take 2,000 mg by mouth daily. Yes baclofen (LIORESAL) 10 mg tablet Take 10 mg by mouth nightly as needed. Yes simvastatin (ZOCOR) 10 mg tablet Take 10 mg by mouth nightly. Yes ROS: Review of Systems Constitutional: Negative for chills, fever and unexpected weight change. HENT: Negative for ear pain. Eyes: Negative for pain. Respiratory: Negative for cough and shortness of breath. Neurological: As per HPI PHYSICAL EXAM: BP 140/68 Pulse 59 Temp 36.7 ??C (98 ??F) Wt 78 kg (172 lb) SpO2 99% BMI 23.50 kg/m?? Appearance/ Behavior Well groomed, good eye contact, relaxed, cooperative, normal speech, no acute distress, no involuntary movements Eyes Sclera anicteric, conjunctiva clear. ENT Hearing grossly intact Skin No rash, asymmetric hair loss, bruises, scars, swelling Musckuloskeletal Inspection/Palpation/ Range of Motion/Facet Loading maneuvers Gait: Antalgic right Assistive device: None ?? Inspection: good alignment, no excessive curvature, shoulder and hip levels equal bilaterally; no skin breakdown ?? Cervical ROM intact. Palpation: Significant left upper trapezius tenderness. Positive Spurlings left. ? Neuro Motor Strength Segment Muscle Action Bilateral Results C5 Detoid Shoulder abduction 5/5 R -5/5 L C5 Biceps Elbow flexion 5/5 R -5/5 L C6 Extensor carpi radialis Wrist extension 5/5 C7 Triceps Elbow extension 5/5 C8, T1 Hand intrinsics Grasp 5/5 R -5/5 L ? Reflexes: Segment Tendon Bilateral C5 Biceps 2+ C6 Brachioradialis 2+ C7 Triceps 2+ Upper [place] Neg L3-4 Patella 2+ Sensory Exam: Diminished sensation left digits 4-5, lateral aspect of left arm ?? RADIOLOGIC DATA: I have independently visualized the following studies : MRI: Cervical 11/29/2020 - see report below EXAMINATION: MRI CERVICAL SPINE WO CONTRAST (GENERIC) ?? CLINICAL HISTORY: ORDER IN SCANNED DOCS ? TECHNIQUE: MRI of the cervical spine performed without intravenous contrast administration. ?? COMPARISON: Plain radiographs performed on 10/11/2020 ?? FINDINGS: Cervical alignment is normal. 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 Mild degenerative changes are identified within the cervical spine. Straightening of the cervical lordosis is noted superiorly. Spinal canal shows a generally average diameter. The spinal cord shows normal diameter, contour and signal intensity. ?? The foramen magnum shows no abnormalities. ?? C1-2 articulation is normal. ?? C2-3 disc and spinal canal are normal in appearance. The intervertebral foramina are patent on sagittal and sagittal oblique images. ?? The C3-4 level and mild uncovertebral joint hypertrophy. There is narrowing of the left C3-4 intervertebral foramen due to uncovertebral joint and facet joint hypertrophy. ?? C4-5 is a mild disc/osteophyte complex. Uncovertebral joint and facet hypertrophy are noted bilaterally. Moderate narrowing of the right C4-5 intervertebral foramen is noted. Moderately severe narrowing of the left C4-5 intervertebral foramen is noted. ?? C5-6 shows no a mild annular protrusion, broad-based. This does not appear to significantly impinge on the thecal sac. The right intervertebral foramen is patent. The left intervertebral foramen is mildly narrowed by uncovertebral and facet hypertrophy. ?? C6-7 reveals a broad annular bulge without significant narrowing of the spinal canal or thecal sac. Uncovertebral joint hypertrophy and facet hypertrophy are noted bilaterally more prominent on the right. This contributes to moderate narrowing of the right C6-7 intervertebral foramen and mild narrowing of the left C6-7 intervertebral foramen ?? C7-T1 reveals no significant abnormality. ? IMPRESSION Mild degenerative changes as described. ?? ASSESSMENT: Assessment Encounter Diagnoses Name Primary? Neck pain ??? Numbness and tingling in left arm 70 yo male with onset of neck pain and left upper extremity pain/weakness over the past 6 months. No improvement with 8 weeks of physical therapy per patient report. Reviewed MRI dated 11/29/2020. Left C3-C4, C4-C5 foraminal narrowing with sensory changes of left upper extremity that do not fit clear dermatomal pattern. Unclear if LUE weakness due to poor effort or pain versus myelopathy. Refer to Spine surgeon for further evaluation and treatment options. Cervical films prior to consult. Do not recommend consideration for Cervical Epidural Steroid Injection due to history of arachnoiditis. See note from 03/28/2020 re chronic knee pain, spoke with AND[facility] Diaz ortho, continue with physical therapy referral through Ortho for desensitization. Recommend referral to [facility] for considerationfor genicular nerve blocks as this location is more convinient for patient. Ortho will change referral to [facility]. Malik Machado had the opportunity to ask questions and indicated that all questions were answered to his satisfaction. Sera White, MSN, BOILER FITTER- C, CLASSIFICATION OFFICER Nurse Practitioner [facility] [address] [address] / [facility] documented in this encounter Plan of Treatment Upcoming Encounters Date Type Department Care Team (Late st Contact Info) Description 08/18/2024 11:00 AM EDT Hospital Encounter Non-[place] [address] Arrived 02/22/2025 1:30 PM EDT Appointment Hematology [place] [phone] 02/22/2025 2:30 PM EDT Office Visit Hematology [place] [address] Ellis Childers MD [facility] [address] [place] [address] Felicita Landa APRN [facility] [address] [place] [address] Scheduled Referrals Name Type Priority Associated Diagnoses Orde r Schedule Referral to Pain and Spine Center (Internal only) Outpatient Referral Routine Neck pain Numbness and tingling in left arm Ordered: 12/05/2020 Referral to Physical Therapy Outpatient Referral Routine Neck pain Numbness and tingling in left arm Ordered: 12/05/2020 documented as of this encounter Visit Diagnoses Diagnosis Neck pain Cervicalgia Numbness and tingling in left arm Disturbance of skin sensation documented in this encounter Care Teams Radio Equipment Installer Relationship Specialty Start Date End Date Radha Mckeon MD [address] [place] [address] PCP - General 09/23/10 documented as of this encounter
--- OUTSIDE RECORDS SUMMARY | 2024-07-24 17:25 | XMS_ITS | Encounter Summary ---
Author Organization [facility] [place] [address] Care Team Providers Care Manager Copy Name Role Phone Radha Mckeon MD Primary Care Provider [phone] Encounter Details Date Type Department Care Team (Late st Contact Info) Description 01/16/2021 Telephone [place] [phone] Esha Gamboa, RN Social History Tobacco Use [...] Telephone Encounter - Esha Gamboa RN - 01/16/2021 3:42 PM EDT Malik called and I told him that we were going to have to reschedule his KATIE due to he forgot and took the Xarelto on 01/14/2021. When talking with him I found out that he is scheduled to have his second covid vaccine on Wednesday which is too soon after the Steroid injection. I transferred the call tothe Schedulers. documented in this encounter Plan of Treatment Upcoming Encounters Date Type Department Care Team (Late st Contact Info) Description 08/18/2024 11:00 AM EDT Hospital Encounter Non-Invasive [place] [address] Arrived 02/22/2025 1:30 PM EDT Appointment Hematology [place] [phone] 02/22/2025 2:30 PM EDT Office Visit Hematology [place] [phone] Ellis Childers MD [facility] DR HEMATOLOGY [place] [address] Felicita Landa APRN [facility] [address] [place] [address] documented as of this encounter Visit Diagnoses Not on filedocumented in this encounter Care Teams Manager Copy Relationship Specialty Start Date End Date Radha Mckeon MD [address] [place] [address] PCP - General 09/23/10 documented as of this encounter
--- OUTSIDE RECORDS SUMMARY | 2024-07-24 17:25 | XMS_ITS | Encounter Summary ---
Author Organization [facility] Address [facility] [place] [address] Care Team Providers Care College Basketball Coach Name Role Phone Radha Mckeon MD Primary Care Provider [phone] Encounter Details Date Type Department Care Team (Latest Contact Info) Description 12/02/2020 1:22 PM EST - 12/02/2020 11:59 PM EST Hospital Encounter XRay at [address] [place] [address] S/P right total knee arthroplasty revision - poly swab and patellar revision Moschetti 11/15/2019; Chronic pain of right knee; Debility Discharge Disposition: Home Social History Tobacco Use [...] QD 04/23/2020 fluticasone propionate (FLONASE) 50 mcg/actuation [place], Suspension INSTILL 1SPRAY IN EACH NOSTRIL TWICE [...] tablet Take 10 mg by mouth nightly. flu vacc [id number],65yr up,/PF (FluZONE HighDose Quad 20-21 PF) 240 mcg/0.7 mL Syringe seasonal 07/23/202004/01 Xarelto 20 mg Tablet TK 1 T PO QD 03/26/2020 022 metoprolol succinate XL (Toprol-XL) 100 mg Tablet Sustained Release 24 hrIndications:Paroxysma l atrial fibrillation Take 1.5 tablets by mouth daily. 135 tablet 3 02/23/2020 02/03/2021 acetaminophen (TYLENOL) 500 mg Tablet Take 2 [...] AM EDT Hospital Encounter Non-Invasive [place] [address] Arrived 02/22/2025 1:30 PM EDT Appointment Hematology [place] [address] 02/22/2025 2:30 PM EDT Office Visit Hematology [place] [address] Ellis Childers MD [facility] [place] [address] Felicita Landa APRN [facility] [place] [address] documented as of this encounter Procedures Procedure Name Priority Date/Time Associated Diagnosis Comments XR KNEE AP & LAT RIGHT Routine 12/02/2020 1:30 PM EST S/P right total knee arthroplasty revision - poly swab and patellar revision Moschetti 11/15/2019 Chronic pain of right knee Debility documented in this encounter Results * XR Knee 1-2 Views Right (Generic) (12/02/2020 1:30 PM EST) Anatomical Region Laterality Modality Knee Right Digital Radiogra phy Impressions 12/02/2020 1:54 PM EST Unchanged thin lucency adjacent to the anterior tibial tray. Otherwise no radiographic evidence of hardware complication. Thank you for letting us participate in the care of this patient. For questions regarding this report, please contact the number below. ? Electronically signed by: Danie Collins MD, [facility] ([phone]), at 12/02/2020 1:54 PM Narrative 12/02/2020 1:54 PM EST EXAMINATION: XR KNEE 1-2 VIEWS RIGHT (GENERIC) CLINICAL HISTORY: s/p RIGHT TKA w/ mag marker, please. TECHNIQUE: 2 views RIGHT knee COMPARISON: 03/07/2020 FINDINGS: There is a total knee arthroplasty with a small knee joint effusion. Alignment is intact. Thin lucency adjacent to the anterior tibial tray is unchanged. No periprosthetic fracture. Procedure Note Danie Collins MD - 12/02/2020 EXAMINATION: XR KNEE 1-2 VIEWS RIGHT (GENERIC) CLINICAL HISTORY: s/p RIGHT TKA w/ mag marker, please. TECHNIQUE: 2 views RIGHT knee COMPARISON: 03/07/2020 FINDINGS: There is a total knee arthroplasty with a small knee joint effusion.Alignment is intact. Thin lucency adjacent to the anterior tibial tray is unchanged.No periprosthetic fracture. IMPRESSION Unchanged thin lucency adjacent to the anterior tibial tray. Otherwiseno radiographic evidence of hardware complication. Thank you for letting us participate in the care of this patient. Forquestions regarding this report, please contact the number below. Electronically signed by: Danie Collins MD, [facility]([phone]), at 12/02/2020 1:54 PM Sukhjinder Jauregui MD IMG DX ORDERABLES documented in this encounter Visit Diagnoses Diagnosis S/P right total knee arthroplasty revision - poly swab and patellar revision Shania 11/15/2019 Chronic pain of right knee Debility Debility, unspecified documented in this encounter Care Teams College Basketball Coach Relationship Specialty Start Date End Date Radha Mckeon MD [address] [place] [address] PCP - General 09/23/10 documented as of this encounter
--- OUTSIDE RECORDS SUMMARY | 2024-07-24 17:25 | XMS_ITS | Encounter Summary ---
Author Organization [facility] [place] [address] Care Team Providers Care Director Of Research Name Role Phone Radha Mckeon MD Primary Care Provider [phone] Encounter Details Date Type Department Care Team (Late st Contact Info) Description 04/21/2021 Telephone [place] [phone] Rocio Shelton Social History Tobacco Use Types Packs/Day Years [...] encounter Miscellaneous Notes * Telephone Encounter - Rocio Shelton - 04/21/2021 4:34 PM EDT 04/21/2021 LVM to move patient's 04/30 appt w/ Dr. Robles to either morning of 04/30 or afternoon of 04/25 (if not conflict with med holds). documented in this encounter Plan of Treatment Upcoming Encounters Date Type Department Care Team (Late st Contact Info) Description 08/18/2024 11:00 AM EDT Hospital Encounter Non-[place] [address] Arrived 02/22/2025 1:30 PM EDT Appointment Hematology and Oncology at [place] [address] 02/22/2025 2:30 PM EDT Office Visit Hematology and Oncology at [place] [address] Ellis Childers MD [facility] DR HEMATOLOGY [place] [address] Felicita Landa APRN [facility] DR HEMATOLOGY [place] [address] documented as of this encounter Visit Diagnoses Not on filedocumented in this encounter Care Teams Director Of Research Relationship Specialty Start Date End Date Radha Mckeon MD [address] [place] [address] PCP - General 09/23/10 documented as of this encounter
--- OUTSIDE RECORDS SUMMARY | 2024-07-24 17:25 | XMS_ITS | Encounter Summary ---
Author Organization [facility] [place] [address] Care Team Providers Care Enforcement Officer Name Role Phone Radha Mckeon MD Primary Care Provider [phone] Encounter Details Date Type Department Care Team (Late st Contact Info) Description 05/15/2021 11:52 AM EDT Anesthesia Event [place] [address] Amelia Lamb MD [facility] [place] [address] Delfino Mercado CRNA [facility] [place] [address] Anesthesia Record Procedure Summary Procedure Name Responsible Anesthesiologist Anesthesia Start Time Anesthesia Stop Time TENDON SHEATH INCISION (TRIGGER FINGER) (WRVU 3.11) (Right: Finger) Amelia Lamb MD 05/15/21 1152 05/15/21 1300 Events Date Time Event Comment 05/15/2021 1013 1152 AN Verify 1152 Start 1152 An Start Data 1201 Anesthesia Ready 1206 Break/Relief In I assumed ca re for Break Relief before which we: 1. Identified the patient 2. Identified the responsible provider(s) 3. Reviewed the pertinent medical history 4. Discussed the surgical plan and course 5. Reviewed intra-op anesthesia management and issues during anesthesia 6. Set expectations for the relief (and/or post-procedure) period 7. Allowed opportunity for questions and acknowledgement of understanding Andrea Snider CRNA 1214 Procedure Start 1232 Break/Relief Out 1249 an stop data 1300 Recovery or ICU Handoff Shannan ent care was transferred to the destination unit staff after review of the patient's medical history, current anesthetic/surgical status and plan, according to the Provider Handoff Checklist. 1300 Stop Meds Name Total Midazolam 2 mg fentaNYL 50 mcg IV Lidocaine 20 mg Propofol 90 mg Propofol INF 523.31 mg Dexmedetomidine 8 mcg ceFAZolin 2 g Lactated Ringers 0 mL * Agents Name O2 Air N2O Sevoflurane (et) O2 Auxiliary Flowmeter 1 * Blood No blood administrations on file. Lines, Drains, and Airways Type Details Placement Removal Incision 04/04/18; 0925; ches t; LDA not present upon assessment; 05/19/22; 0821 04/04/18 0925 by Malik Tsang RN 05/19/22 0821 by Al Barlow RN (RETIRED) Peripheral IV Line - Single Lumen 01/31/19; 1420; cephalic vein (lateral side of arm), right; 22 gauge; distraction; 08/06/21 (LDA Cleanup utility RA#[id number]); 1650 (LDA Cleanup utility RA#[id number]) 01/31/19 1420 by Tyesha Almanzar RN 08/06/21 1650 by Cody Lawrence Incision 11/15/19; 1320; knee ; vertical; 06/29/22 (LDA cleanup utility RA#[id number]); 1715 (LDA cleanup utility RA#[id number]) 11/15/19 1320 by Angelic Lorenzana RN 06/29/22 1715 by Jonathon Zacarias (RETIRED) Peripheral IV Line - Single Lumen 05/15/21; 1008; cephalic vein (lateral side of arm), left; [id number] catheter system; Anatomical Landmarks; 20 gauge, 1 in length; Jean RN; tolerated well, appears comfortable; 08/06/21 (LDA Cleanup utility RA#[id number]); 1650 (LDA Cleanup utility RA#[id number]) 05/15/21 1008 by Serina Jean RN 08/06/21 1650 by Cody Lawrence 05/15/21; 1202; Righ t; hand; 06/29/22 (LDA cleanup utility RA#[id number]); 1715 (LDA cleanup utility RA#[id number]) 05/15/21 1202 by Juliocesar Louis RN 06/29/22 1715 by Jonathon Zacarias documented in this encounter Social History Tobacco [...] OR Notes * Anesthesia Postprocedure Evaluation - Amelia Lamb MD - 05/15/2021 1:16 PM EDT Department of Anesthesiology Post-procedure Note Patient: Malik Machado Procedure Summary Date: 05/15/21 Room / Location: [facility] OR [address] [place] [address] MAIN OR Anesthesia Start: 1152 Anesthesia Stop: 1300 Procedure: TENDON SHEATH INCISION (TRIGGER FINGER) (WRVU 3.11) (Right Finger) Diagnosis: Trigger middle finger of right hand (Right Long Finger Trigger) Surgeons: Jovan Duong MD Responsible Provider: Amelia Lamb MD Anesthesia Type: MAC ASA Status: 3 All Anesthesia Providers: Anesthesiologist: Amelia Lamb MD SUPPLIER DEVELOPMENT MANAGER: Delfino Mercado CRNA Vitals Value Taken Time BP 115/67 05/15/21 1315 Temp Pulse 56 05/15/21 1314 Resp 14 05/15/21 1314 SpO2 97 % 05/15/21 1316 Pain Level Vitals shown include unvalidated device data. Patient Location: PACU/[facility] Level of Consciousness: Awake and Alert Pain Management: Satisfactory Analgesia PONV: None Cardiovascular Status: At Baseline and Hemodynamically Stable Respiratory Status: At Baseline and Room Air Postoperative Fluid Status: Intravascular EUvolemia Possible Anesthetic Complications: NONE apparent at time of evaluation Final Primary Anesthesia Type: MAC (The anesthetic type performed was the same as planned.) Comments: AMELIA LAMB MD * Anesthesia Preprocedure Evaluation - Delfino Mercado CRNA - 05/15/2021 9:05 AM EDT Pre-Anesthesia Evaluation for: Malik Machado a 71 y.o. male. Procedure(s): TENDON SHEATH INCISION (TRIGGER FINGER) (WRVU 3.11) Patient Active Problem List Diagnosis ??? A-fib --Recurrent AF --S/P cardioversions x 3 (09/2005, 01/2006, 07/2007). --AF that has resolved spontaneously (12/2006, etc). 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 --Flecainide stopped after 4 doses due to IA/QRS prolongation, 12/2007. --Started on dofetilide 500mcg BID [...] isolation performed, stage IV. ??? Hypertension ??? Radiculopathy of cervical region ??? Neck [...] --Amitriptyline (palpitations), Lipitor (liver enzyme abnormalities), flecainide (IA/QRS prolongation noted 12/2007). ??? History of surgery [...] Rx, 2010. --Currently on oxycodone. --Lumbar radiculopathy. Past Medical History: Diagnosis Date ??? Antiplatelet or antithrombotic long-term use apixaban ??? Chronic back pain greater than 3 months duration ??? Chronic pain spine, has had 3 spine surgeries ??? High blood pressure controlled with medication ??? Hypothyroid treated with medication ??? Irregular heart beat afib ??? 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 JOINT REPLACEMENT [id number] ??? PACEMAKER IMPLANT loop recorder ??? PRO REVISE KNEE JOINT REPLACE, ALL PARTS Right 11/15/2019 @TOTAL KNEE REVISION ARTHROPLASTY, COMPLETE (WRVU 27.11) performed by Sukhjinder Jauregui MD at [facility] MAIN OR ??? XR JOINT ASPIRATION - LARGE JOINT RIGHT Right 01/02/2019 XR Fluoro Guided Joint Aspiration Large Right 01/02/2019 [facility] RAD XRAY Social History Tobacco Use ??? [...] Flecainide Other (See Comments) Adverse effect caused IA and QRS prolongation Medications: MAR and/or home medications have been reviewed. Physical Exam: Preprocedure Vitals Current as of 05/15/21 0905 No BP, pulse, respiration, SpO2, or temperature recorded. Height: 182.9 cm (6' 0.01) (03/25/21) Weight: 83.5 kg (184 lb 1.4 oz) (03/25/21) BMI: 24.96 IBW: 77.6 kg (171 lb 1.9 oz) Airway Assessment: Mallampati: II TM distance: >3 FB Neck ROM: limited Cardiovascular Assessment: system normal Pulmonary Assessment: pulmonary exam normal Dental Assessment: Misc Assessment: IV access: Peripheral line Last Filed Perioperative Cognitive Screening None Anesthesia Plan: ASA 3 MAC, with a(n) intravenous induction Trigger finger release under MAC Medical history notable for tobacco use, chronic back pain (taking oxycodone 15mg PRN), s/p multiple lumbar surgeries, thrombocytopenia (80s-120; most recently 105), HTN (verapamil, metoprolol), HLD (simvastatin), GERD (well- controlled; omeprazole), RBBB and paroxysmal A-fib s/p ablation in 2012 and 2016; on metoprolol and Eliquis (last dose taken 11/11/19). ?? Prior GA in 2017 Grade 2 view with Martinez 2 and easy mask. Informed Consent: Anesthetic plan and risks discussed with patient. Plan discussed with SUPPLIER DEVELOPMENT MANAGER. Anesthesia Screening * Anesthesia Preprocedure Evaluation - Amelia Lamb MD - 05/15/2021 7:05 AM EDT Pre-Anesthesia Evaluation for: Malik Machado a 71 y.o. male. Procedure(s): TENDON SHEATH INCISION (TRIGGER FINGER) (WRVU 3.11) Patient Active Problem List Diagnosis ??? A-fib --Recurrent AF --S/P cardioversions x 3 (09/2005, 01/2006, 07/2007). --AF that has resolved spontaneously (12/2006, etc). 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 --Flecainide stopped after 4 doses due to IA/QRS prolongation, 12/2007. --Started on dofetilide 500mcg BID [...] isolation performed, stage IV. ??? Hypertension ??? Radiculopathy of cervical region ??? Neck [...] --Amitriptyline (palpitations), Lipitor (liver enzyme abnormalities), flecainide (IA/QRS prolongation noted 12/2007). ??? History of surgery [...] USED: All implants were from the [employer] total knee system. 1. A size 4 [...] Rx, 2010. --Currently on oxycodone. --Lumbar radiculopathy. Past Medical History: Diagnosis Date ??? Antiplatelet or antithrombotic long-term use apixaban ??? Chronic back pain greater than 3 months duration ??? Chronic pain spine, has had 3 spine surgeries ??? High blood pressure controlled with medication ??? Hypothyroid treated with medication ??? Irregular heart beat afib ??? correction current use of opiate analgesic oxycodone, prescribed [...] CURVED Procedure Date: 01/14/2010 ??? JOINT REPLACEMENT [id number] ??? PACEMAKER IMPLANT loop recorder ??? PRO REVISE KNEE JOINT REPLACE, ALL PARTS Right 11/15/2019 @TOTAL KNEE REVISION ARTHROPLASTY, COMPLETE (WRVU 27.11) performed by Sukhjinder Jauregui MD at [facility] MAIN OR ??? XR JOINT ASPIRATION - LARGE JOINT RIGHT Right 01/02/2019 XR Fluoro Guided Joint Aspiration Large Right 01/02/2019 [facility] RAD XRAY Social History Tobacco Use ??? [...] Flecainide Other (See Comments) Adverse effect caused IA and QRS prolongation Medications: MAR and/or home medications have been reviewed. Physical Exam: Preprocedure Vitals Current as of 05/15/21 0705 No BP, pulse, respiration, SpO2, or temperature recorded. Height: 182.9 cm (6' 0.01) (03/25/21) Weight: 83.5 kg (184 lb 1.4 oz) (03/25/21) BMI: 24.96 IBW: 77.6 kg (171 lb 1.9 oz) Airway Assessment: Mallampati: II Neck ROM: limited Cardiovascular Assessment: system normal Pulmonary Assessment: pulmonary exam normal Dental Assessment: Misc Assessment: IV access: Peripheral line Last Filed Perioperative Cognitive Screening None Anesthesia Plan: ASA 3 MAC, with a(n) intravenous induction Patient Active Problem List: Chronic back pain, causing disability (M54.9, G89.29) A-fib (I48.91) Hypertension (I10) RBBB (right bundle branch block with left anterior fascicular block) (I45.2) S/P knee replacement (Z96.659) Adverse drug effects (T50.905A) History of surgery (Z98.890) Lightheadedness (R42) 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 ?? Medical history notable for tobacco use, chronic back pain (taking oxycodone 15mg PRN), s/p multiple lumbar surgeries, thrombocytopenia (80s-120; most recently 105), HTN (verapamil, metoprolol), HLD (simvastatin), GERD (well- controlled; omeprazole), RBBB and paroxysmal A-fib s/p ablation in 2012 and 2016; on metoprolol and Eliquis (last dose taken 11/11/19). Informed Consent: Anesthetic plan and risks discussed with patient. Anesthesia Screening documented in this encounter Plan of Treatment Upcoming Encounters Date Type Department Care Team (Late st Contact Info) Description 08/18/2024 11:00 AM EDT Hospital Encounter Non-Invasive [place] [address] Arrived 02/22/2025 1:30 PM EDT Appointment Hematology [place] [phone] 02/22/2025 2:30 PM EDT Office Visit Hematology [place] [phone] Ellis Childers MD [facility] [place] [address] Felicita Landa APRN [facility] HEMATOLOGY [place] [address] documented as of this encounter Visit Diagnoses Not on filedocumented in this encounter Administered Medications Inactive Administered Medications - up to 3 most recent administrations Medication Order MAR Action Action Date Dose Rate Site ceFAZolin (Ancef) 1 g in dextrose 5% 50 mL infusion Intravenous, PRN, Starting on Zakia 05/15/21 at 1157, Until Zakia 05/15/21 at 1300, Administer over 30 Minutes, Anesthesia Intra-op Given 05/15/2021 11:57 AM EDT 2 g dexmedetomidine (Precedex) (4 mcg/mL) bolus injection (Anesthsia) Intravenous, PRN, Starting on Zakia 05/15/21 at 1201, Until Zakia 05/15/21 at 1300, Anesthesia Intra-op, Routine Given 05/15/2021 12:09 PM EDT 4 mcg Given 05/15/2021 12:01 PM EDT 4 mcg fentaNYL (pf) (50 mcg/mL) multi-dose injection Intravenous, PRN, Starting on Zakia 05/15/21 at 1209, Until Zakia 05/15/21 at 1300, Anesthesia Intra-op, Routine Given 05/15/2021 12:18 PM EDT 25 mcg Given 05/15/2021 12:09 PM EDT 25 mcg lactated ringers infusion Intravenous, CONTINUOUS PRN, Starting on Zakia 05/15/21 at 1152, Until Zakia 05/15/21 at 1300, Anesthesia Intra-op New Bag 05/15/2021 11:52 AM EDT lidocaine (pf) (Xylocaine) (20 mg/mL) 2% injection syringe Intravenous, PRN, Starting on Zakia 05/15/21 at 1201, Until Zakia 05/15/21 at 1300, Anesthesia Intra-op, Routine Given 05/15/2021 12:01 PM EDT 20 mg midazolam (pf) (Versed) (1 mg/mL) multi-dose injection Intravenous, PRN, Starting on Zakia 05/15/21 at 1149, Until Zakia 05/15/21 at 1300, Anesthesia Intra-op, Routine Given 05/15/2021 11:49 AM EDT 2 mg propofoL (Diprivan) 10 mg/mL bolus injection (Anesthesia) Intravenous, PRN, Starting on Zakia 05/15/21 at 1201, Until Zakia 05/15/21 at 1300, Anesthesia Intra-op Given 05/15/2021 12:14 PM EDT 30 mg Given 05/15/2021 12:09 PM EDT 20 mg Given 05/15/2021 12:01 PM EDT 40 mg propofoL (Diprivan) infusion Intravenous, CONTINUOUS PRN, Starting on Zakia 05/15/21 at 1201, Until Zakia 05/15/21 at 1300, Anesthesia Intra-op, Routine Rate/Dose Change 05/15/2021 12:06 PM EDT 175 mcg/kg/min 84.21 mL/hr New Bag 05/15/2021 12:01 PM EDT 150 mcg/kg/min 72.18 mL /hr documented in this encounter Care Teams Enforcement Officer Relationship Specialty Start Date End Date Radha Mckeon MD [address] [place] [address] PCP - General 09/23/10 documented as of this encounter
--- OUTSIDE RECORDS SUMMARY | 2024-07-24 17:25 | XMS_ITS | Encounter Summary ---
Author Organization [facility] [place] [address] Care Team Providers Care Pierogi Maker Name Role Phone Radha Mckeon MD Primary Care Provider [phone] Encounter Details Date Type Department Care Team (Late st Contact Info) Description 01/03/2021 Notes Only [facility] [place] [address] Tonja Perales Social History Tobacco Use Types Packs/Day Years [...] as of this encounter Progress Notes * Tonja Perales - 01/03/2021 11:24 AM EST Procedure: KATIE MRI required? yes (If yes, verify that updated MRI is in eDH) (Atlanto-Axial Joint injection, KATIE; 1 year or <)(Caudal ROSALIO, LESI, Thoracic ROSALIO, TFESI Lumbar & Cervical; 2 years or <) RISK LEVEL: High Are you on any blood thinners? yes (If yes, specify medication type and prescribing provider for anticoagulant hold request) Medication: XARELTO Prescribing provider: ANDREE MCKEON Reminder: Coumadin requires an INR lab 1 hour prior to procedure Are you taking any NSAIDs? no Type of NSAID: Are you currently taking any oral steroids (i.e. prednisone) or have you had a steroid injection within the past two weeks? no If YES to oral steroids: Have you been taking more than 40mg a day for more than 14 days? If no, okay to schedule. Are you currently taking or have you recently been treated with antibiotics? no Have you been in the ER or hospitalized recently? no If yes. Why? Do you have any allergies to anesthetics or steroids? no Are you diabetic? no (In the case of type I diabetes, steroids injections can make blood sugar spike) Is this being billed to workers comp or your regular insurance (verify insurance)? Worker's Comp no Insurance: MEDICARE/ BCBS [place] Have you had or are you scheduled to have a COVID vaccine? Yes Is this a STEROID injection (anything other than RFA, MBB, Lumbar Puncture, or Blood Patch)? Yes 1ST VACCINE 01/06/21 We recommend that you do not have either the first or second dose of a covid vaccine within one week before and two weeks after your steroid injection procedure. This is based on our understanding ofhow these vaccines and the steroid medications work and the potential that having a vaccine too close to your steroid injection time could possibly make the vaccine less effective. documented in this encounter Plan of Treatment Upcoming Encounters Date Type Department Care Team (Late st Contact Info) Description 08/18/2024 11:00 AM EDT Hospital Encounter Non-Invasive Cardiology [place] [address] Arrived 02/22/2025 1:30 PM EDT Appointment Hematology [place] [address] 02/22/2025 2:30 PM EDT Office Visit Hematology [place] [address] Ellis Childers MD [facility] DR HEMATOLOGY [place] [address] Felicita Landa APRN [facility] HEMATOLOGY [place] [address] documented as of this encounter Visit Diagnoses Not on filedocumented in this encounter Care Teams Pierogi Maker Relationship Specialty Start Date End Date Radha Mckeon MD [address] [place] [address] PCP - General 09/23/10 documented as of this encounter
--- OUTSIDE RECORDS SUMMARY | 2024-07-24 17:25 | XMS_ITS | Encounter Summary ---
Author Organization [facility] [place] [address] Care Team Providers Care Banking Specialist Name Role Phone Radha Mckeon MD Primary Care Provider [phone] Reason for Visit * Reason Onset Date Comments Post-op Problem 05/16/2021 Encounter Details Date Type Department Care Team (Late st Contact Info) Description 05/16/2021 Telephone [place] [phone] Layne Soares, RMA Post-op Problem Social History Tobacco Use Types Packs/Day Years [...] encounter Miscellaneous Notes * Telephone Encounter - ChelyYumiko - 05/21/2021 3:55 PM EDT L/M #1 TO [address] PT OF DR ALEXANDRA'S RESPONSE BACK TO HIS QUESTION. PLEASE ADVISE IF PT RETURNS PH CALL. * Telephone Encounter - Yumiko Mo - 05/21/2021 2:11 PM EDT PT also questioning how long the healing process is for the finger? He states that he is trying to get an injection in his neck but pain and spine are hesitant to give the injection because they don't want to cause any issues with the healing process of the finger. Please advise. Thank you * Telephone Encounter - Layne Soares RMA - 05/16/2021 3:54 PM EDTSummary: Post op concern Triage Note Subjective: Post op concern SP Surgeon Role Jovan Alexandra MD [facility], Manoj House MD Resident Sebastian, Umer Craig MD Resident Procedure Laterality Anesthesia TENDON SHEATH INCISION (TRIGGER FINGER) (WRVU 3.11) DOS 05/15/2021 Rajput questions/Assessment: Malik called with questions. 1. My surgical finger is bent - is this normal? 2. My dressing is loose, can I fix it? 3. Is it normal for my finger not to straighten out? I reviewed Malik's questions with Dr Alexandra. Dr Alexandra stated that he does not know what bent means onJohn. He stated that he should continue to try and straighten his finger but if it hurts to bad he needs to back off. He is able to place an over wrap over his existing dressing but not take down thedressing that he has on. Malik agreed to try and straighten his finger and will do a over wrap on his current dressing. If his finger get painful and starts to bleed He should go to a local ED. Malik stated that he understands. documented in this encounter Plan of Treatment Upcoming Encounters Date Type Department Care Team (Late st Contact Info) Description 08/18/2024 11:00 AM EDT Hospital Encounter Non-Invasive Cardiology Lab [facility] [place] [address] Arrived 02/22/2025 1:30 PM EDT Appointment Hematology and Oncology at [address] 02/22/2025 2:30 PM EDT Office Visit Hematology and Oncology at [place] [phone] Ellis Childers MD [facility] DR HEMATOLOGY [place] [address] Felicita Landa APRN [facility] DR HEMATOLOGY [place] [address] documented as of this encounter Visit Diagnoses Not on filedocumented in this encounter Care Teams Banking Specialist Relationship Specialty Start Date End Date Radha Mckeon MD [address] [place] [address] PCP - General 09/23/10 documented as of this encounter
--- OUTSIDE RECORDS SUMMARY | 2024-07-24 17:25 | XMS_ITS | Encounter Summary ---
Author Organization [facility] [place] [address] Care Team Providers Care Tableau Lead Name Role Phone Radha Mckeon MD Primary Care Provider [phone] Encounter Details Date Type Department Care Team (Late st Contact Info) Description 12/30/2020 Notes Only [facility] [place] [address] Cely Irvin Social History Tobacco Use Types [...] as of this encounter Progress Notes * Cely Irvin - 12/30/2020 3:41 PM EST [facility] Temporary Anticoagulant Hold Initial Request Patient: Malik Machado [id number] Request for the above named patient to temporarily stop Xarelto for 3 days prior to requested cervical epidural steroid injection injection/procedure has been faxed to: SANDRA Laughlins office. Fax number: [phone] Fax confirmation that request received at the above named doctor's office: 12/30/20 (date stamp on fax confirmation) 4:14pm (time stamp on fax confirmation) Paper documentation in [facility] Center Scheduling Desk. Cely Irvin * Tonja Perales - 12/30/2020 3:41 PM EST [facility] Temporary Anticoagulant Hold Documentation Patient: Malik Machado [id number] Permission received from ANDREE Shelley to temporarily stop Xarelto for 3 days prior to requested cervical epidural steroid injection injection/procedure. See signed permission received from prescriber scanned into electronic record. Permission received for multiple procedures over 1 year: no PT/INR ordered: no Tonja Perales documented in this encounter Plan of Treatment Upcoming Encounters Date Type Department Care Team (Late st Contact Info) Description 08/18/2024 11:00 AM EDT Hospital Encounter Non[place] [phone] Arrived 02/22/2025 1:30 PM EDT Appointment Hematology [place] [address] 02/22/2025 2:30 PM EDT Office Visit Hematology and Oncology at [place] [phone] Ellis Childers MD [facility] [address] [place] [address] Felicita Landa APRN [facility] [address] [place] [address] documented as of this encounter Visit Diagnoses Not on filedocumented in this encounter Care Teams Tableau Lead Relationship Specialty Start Date End Date Radha Mckeon MD [address] [place] [address] PCP - General 09/23/10 documented as of this encounter
--- OUTSIDE RECORDS SUMMARY | 2024-07-24 17:25 | XMS_ITS | Encounter Summary ---
Author Organization [facility] [place] [address] Care Team Providers Care Mid Level Developer Name Role Phone Radha Mckeon MD Primary Care Provider [phone] Encounter Details Date Type Department Care Team (Late st Contact Info) Description 01/16/2021 Telephone [place] [address] Esha Gamboa, RN Social History Tobacco Use [...] Telephone Encounter - Esha Gamboa, RN - 01/16/2021 11:18 AM EDT Malik Machado :1950 Message left: I left a message on answering machine Mr. Machado at 11:18 AM regarding upcoming Neither cervical epidural steroid injection with Dr. Librado Robles DO. Message included the followin. Patient instructed to arrive at 1315 (30 minutes prior to procedure start time) on 01/17/2021 (date of procedure) with their stage driver. 2. Following instructions left in the message: - Bring Updated list of medications including dosage and reason for taking. - Call the Pain Clinic Nurse at for: ~Procedure instructions. ~If you are taking antibiotics for any active infections ~If you have any signs or symptoms of infection, cold or flu or any current skin breakdown ~If you are taking anticoagulants / blood thinners (Plavix, Pletal, Lovenox, Coumadin, etc). ~If you had any steroid injections anywhere in your body within the last two weeks - If you have received or are scheduled to receive the COVID vaccine. I left the message that since he took his xarelto on 01/14/2021 and it is a 24 hour blood thinner wemay need to reschedule his procedure. I told him to call us back so we could discuss this with him. Esha Gamboa, RN documented in this encounter Plan of Treatment Upcoming Encounters Date Type Department Care Team (Late st Contact Info) Description 08/18/2024 11:00 AM EDT Hospital Encounter Non-[place] [address] Arrived 02/22/2025 1:30 PM EDT Appointment Hematology [place] [address] 02/22/2025 2:30 PM EDT Office Visit Hematology [place] [address] Ellis Childers MD [facility] HEMATOLOGY [place] [address] Felicita Landa APRN [facility] H[place]ATOLOGY [place] [address] documented as of this encounter Visit Diagnoses Not on filedocumented in this encounter Care Teams Mid Level Developer Relationship Specialty Start Date End Date Radha Mckeon MD [address] [place] [address] PCP - General 09/23/10 documented as of this encounter
--- OUTSIDE RECORDS SUMMARY | 2024-07-24 17:25 | XMS_ITS | Encounter Summary ---
Author Organization [facility] [place] [address] Care Team Providers Care Event Av Operator Name Role Phone Radha Mckeon MD Primary Care Provider [phone] Reason for Visit * Reason Onset Date Comments Appointment 05/16/2021 Encounter Details Date Type Department Care Team (Late st Contact Info) Description 05/16/2021 [place] [id number] Ronaldo Kong Appointment Social History Tobacco Use Types Packs/Day [...] encounter Miscellaneous Notes * Telephone Encounter - Melinda Hill - 05/21/2021 10:29 AM EDT Patient returned call. The hospital check is currently scheduled on 05/30/21 at 2:30 PM, which actually works for him because he will be here for another procedure in another department that day. He needs to double check to make sure the time of the hospital check will not conflict with his other procedure. He will call back if he needs to change the time of the appointment, but he does want it to be on this day. * Telephone Encounter - Sol Hanley - 05/20/2021 4:08 PM EDT LM#2 to Re-Schedule his Hospital Check appointment Per Note Could we reach out to Mr. Machado and coordinate a different day for him to follow-up. A couple days earlier or later would be acceptable. Ronaldo Morris * Telephone Encounter - Sol Hanley - 05/16/2021 1:40 PM EDT LM#1 to Re-Schedule his Hospital Check appointment Per Note Could we reach out to Mr. Machado and coordinate a different day for him to follow-up. A couple days earlier or later would be acceptable. Ronaldo Morris * Telephone Encounter - Ronaldo Kong - 05/16/2021 11:55 AM EDT Malik Machado is a 71 y.o. male who is s/p right long finger trigger release DOS 05/15/2021 by . He reports that he feels his dressing is loose, and is concerned that this may fall off or that he may messed something up with the sutures underneath. I directed him to reinforce the dressing with more gauze, tape, or what he has at his disposal. He understood and agreed with this and will do so. He also would like to know how much is he supposed to use his hand, and if he should be working on straightening his finger. I reviewed the discharge summary which indicates he should be working on gentle range of motion of his fingers. He should do this as tolerated, and avoid extremes that cause pain. I reviewed his operative note with him and reported that everything went well according to the note. It was noted that he had some moderate thickening of his pulleys. He understands this. He knows to call back if he has any further questions or concerns. He would like to reschedule his follow-up appointment because he is unable to make it that day due to a conflict and appointment elsewhere. Routed to schedulers to reach out and adjust. P: [phone] documented in this encounter Plan of Treatment Upcoming Encounters Date Type Department Care Team (Late st Contact Info) Description 08/18/2024 11:00 AM EDT Hospital Encounter [place] [address] Arrived 02/22/2025 1:30 PM EDT Appointment Hematology and Oncology at [place] [address] 02/22/2025 2:30 PM EDT Office Visit Hematology and Oncology at [place] [address] Ellis Childers MD [facility] [address] [place] [address] Felicita Landa APRN [facility] [address] [place] [address] documented as of this encounter Visit Diagnoses Not on filedocumented in this encounter Care Teams Event Av Operator Relationship Specialty Start Date End Date Radha Mckeon MD [address] [place] [address] PCP - General 09/23/10 documented as of this encounter
--- OUTSIDE RECORDS SUMMARY | 2024-07-24 17:25 | XMS_ITS | Encounter Summary ---
Author Organization [facility] [place] [address] Care Team Providers Care Cafe Helper Name Role Phone Radha Mckeon MD Primary Care Provider [phone] Encounter Details Date Type Department Care Team (Late st Contact Info) Description 12/05/2020 Orders Only [place] [phone] PA [facility] [place] [address] Social History Tobacco Use Types Packs/Day Years [...] AM EDT Hospital Encounter Non-Invasive [place] [address] Arrived 02/22/2025 1:30 PM EDT Appointment Hematology [place] [address] 02/22/2025 2:30 PM EDT Office Visit Hematology [place] [address] Ellis Childers MD [facility] DR HEMATOLOGY [place] [address] Felicita Landa APRN [facility] DR HEMATOLOGY [place] [address] documented as of this encounter Visit Diagnoses Not on filedocumented in this encounter Care Teams Cafe Helper Relationship Specialty Start Date End Date Radha Mckeon MD [address] [place] [address] PCP - General 09/23/10 documented as of this encounter
--- OUTSIDE RECORDS SUMMARY | 2024-07-24 17:25 | XMS_ITS | Encounter Summary ---
Author Organization [facility] [place] [address] Care Team Providers Care Transplant Rn Name Role Phone Radha Mckeon MD Primary Care Provider [phone] Encounter Details Date Type Department Care Team (Late st Contact Info) Description 03/27/2021 Telephone [place] [address] Esha Gamboa, RN Social History Tobacco Use [...] Telephone Encounter - Esha Gamboa RN - 03/27/2021 9:47 AM EDT Out going call to Malik to tell him that we need to reschedule his procedure do to he didn't stop his fish oil. I transferred his call to the schedulers. documented in this encounter Plan of Treatment Upcoming Encounters Date Type Department Care Team (Late st Contact Info) Description 08/18/2024 11:00 AM EDT Hospital Encounter [place] [address] Arrived 02/22/2025 1:30 PM EDT Appointment Hematology and Oncology at [address] 02/22/2025 2:30 PM EDT Office Visit Hematology and Oncology at [place] [address] Ellis Childers MD [facility] [address] [place] [address] Felicita Landa APRN [facility] [place] [address] documented as of this encounter Visit Diagnoses Not on filedocumented in this encounter Care Teams Transplant Rn Relationship Specialty Start Date End Date Radha Mckeon MD [address] [place] [address] PCP - General 09/23/10 documented as of this encounter
--- OUTSIDE RECORDS SUMMARY | 2024-07-24 17:25 | XMS_ITS | Encounter Summary ---
Author Organization [facility] [place] [address] Care Team Providers Care Senior Sql Server Developer Name Role Phone Radah Mckeon MD Primary Care Provider [phone] Reason for Visit * Reason Onset Date Comments Medication Refill Medication Refill 02/20/2021 Encounter Details Date Type Department Care Team (Late st Contact Info) Description 02/03/2021 Refill Cardiology at [address] [address] Diogo oRbb, ANDREE [facility] [place] [address] Medication Refill; Medication Refill Social History Tobacco Use Types [...] Telephone Encounter - Sera Lau RN - 02/20/2021 2:54 PM EDT Malik Machado :1950 Message left: I left a message on answering machine Mr. Machado at 2:55 PM regarding upcoming Neither cervical epidural steroid injection with Dr. Librado Robles DO. Message included the followin. Patient instructed to arrive at 14:45 (30 minutes prior to procedure start time) on 15:15 (date of procedure) with their seasonal delivery driver. 2. Following instructions left in the [...] are scheduled to receive the COVID vaccine. 3. If patient NPO: No food after 09:15 (6 hours prior to procedure start time); clear fluids only up until 13:15 (2 hours prior to procedure start time) Kavitha HIRSCH documented in this encounter Plan of Treatment Upcoming Encounters Date Type Department Care Team (Late st Contact Info) Description 08/18/2024 11:00 AM EDT Hospital Encounter Non[place] [address] Arrived 02/22/2025 1:30 PM EDT Appointment Hematology [place] [address] 02/22/2025 2:30 PM EDT Office Visit [place]ology [place] [address] Ellis Childers MD [facility] DR HEMATOLOGY [place] [address] Felicita Landa APRN [facility] DR HEMATOLOGY [place] [address] documented as of this encounter Visit Diagnoses Diagnosis Paroxysmal atrial fibrillation Atrial fibrillation documented in this encounter Care Teams Senior Sql Server Developer Relationship Specialty Start Date End Date Radha Mckeon MD [address] [place] [address] PCP - General 09/23/10 documented as of this encounter
--- OUTSIDE RECORDS SUMMARY | 2024-07-24 17:25 | XMS_ITS | Encounter Summary ---
Author Organization [facility] [address] Care Team Providers Care Motel Clerk Name Role Phone Radha Mckeon MD Primary Care Provider [phone] Reason for Referral * Consultation (Routine) - Specialty Diagnoses / Procedures Referred By Becki guillory Referred To Contact Diagnoses S/P revision of total knee, right [address] PA [facility] [place] [address] [place], [place] Referral ID Status Reason Start Date Expiration Date V isits Requested Visits Authorized [id number] Consult, Test & Treat 12/05/2020 12/05/2021 3 3 Encounter Details Date Type Department Care Team (Late st Contact Info) Description 12/05/2020 Telephone [place] [address] PA [facility] [place] [address] Social History Tobacco Use Types Packs/Day Years [...] encounter Miscellaneous Notes * Telephone Encounter - Librado Way PA - 12/05/2020 3:55 PM EST Referral placed for pain center, [facility] documented in this encounter Plan of Treatment Upcoming Encounters Date Type Department Care Team (Late st Contact Info) Description 08/18/2024 11:00 AM EDT Hospital Encounter Non-[place] [address] Arrived 02/22/2025 1:30 PM EDT Appointment Hematology and Oncology at [place] [address] 02/22/2025 2:30 PM EDT Office Visit Hematology and Oncology at [place] [address] Ellis Childers MD [facility] [address] [place] [address] Felicita Landa APRN [facility] [address] [place] [address] Scheduled Referrals Name Type Priority Associated Diagnoses Orde r Schedule Referral to [facility] (Internal only) Outpatient Referral Routine 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
--- OUTSIDE RECORDS SUMMARY | 2024-07-24 17:25 | XMS_ITS | Encounter Summary ---
Author Organization [facility] [place] [address] Care Team Providers Care Port Steward Name Role Phone Radha Mckeon MD Primary Care Provider [phone] Reason for Visit * Reason Onset Date Comments Bumped Appointment 03/19/2021 Encounter Details Date Type Department Care Team (Late st Contact Info) Description 03/19/2021 Tele[place] [address] Jovan Duong MD [facility] [place] [address] Bumped Appointment Social History Tobacco Use Types [...] encounter Miscellaneous Notes * Telephone Encounter - Lynnette Vogt - 03/19/2021 7:[address] Duong will be in surgery this afternoon. LM#1 to call to reschedule appointment. Per Dr. Duong:Can see him next Wednesday in person or telemedicine (TOV or video visit). If Wednesday is not good forhim, can give him a call sometime on (03/20) to at least check in. * Telephone Encounter - Milady Reilly I - 03/19/2021 7:25 AM EDT Malik called to reschedule and he preferred a in person visit. I rescheduled him to 03/25/21 for the 2 pm appt. documented in this encounter Plan of Treatment Upcoming Encounters Date Type Department Care Team (Late st Contact Info) Description 08/18/2024 11:00 AM EDT Hospital Encounter Non-Invasive Cardiology Lab [address] Arrived 02/22/2025 1:30 PM EDT Appointment Hematology and Oncology at [place] [address] 02/22/2025 2:30 PM EDT Office Visit Hematology and Oncology at [place] [address] Ellis Childers MD [facility] DR HEMATOLOGY [place] [address] Felicita Landa APRN [facility] DR HEMATOLOGY [place] [address] documented as of this encounter Visit Diagnoses Not on filedocumented in this encounter Care Teams [place] Relationship Specialty Start Date End Date Radha Mckeon MD [address] [place] [address] PCP - General 09/23/10 documented as of this encounter
--- OUTSIDE RECORDS SUMMARY | 2024-07-24 17:25 | XMS_ITS | Encounter Summary ---
Author Organization [facility] Address [facility] [place] [address] Care Team Providers Care Breaker Machine Tender Name Role Phone Radha Mckeon MD Primary Care Provider [phone] Encounter Details Date Type Department Care Team (Latest Contact Info) Description 12/05/2020 4:14 PM EST - 12/05/2020 11:59 PM [facility] Hospital Encounter XRay at [address] [place] [address] Sera White APRN [facility] [place] [address] Neck pain Discharge Disposition: Home Social History Tobacco Use [...] QD 04/23/2020 fluticasone propionate (FLONASE) 50 mcg/actuation [place], Suspension INSTILL 1SPRAY IN EACH NOSTRIL TWICE [...] 10 mg by mouth nightly. flu vacc [id number],65yr up,/PF (FluZONE HighDose Quad 20-21 PF) 240 [...] AM EDT Hospital Encounter Non-Invasive [place] [address] Arrived 02/22/2025 1:30 PM EDT Appointment Hematology [place] [address] 02/22/2025 2:30 PM EDT Office Visit Hematology [place] [address] Ellis Childers MD [facility] DR [place] [address] Felicita Landa APRN [facility] DR [place] [address] documented as of this encounter Procedures Procedure Name Priority Date/Time Associated Diagnosis Comments XR CERVICAL SPINE 4 OR 5 VIEWS Routine 12/05/2020 4:29 PM EST Neck pain documented in this encounter Results * XR Cervical Spine 4 or 5 Views (12/05/2020 4:29 PM EST) Anatomical Region Laterality Modality L-spine N/A Digital Radiogra phy Impressions 12/05/2020 4:42 PM EST 1 mild evidence of degenerative disc disease at C6-7. 2. Osteoarthritis. 3. No instability. Thank you for letting us participate in the care of this patient. For questions regarding this report, please contact the number below. ? Narrative 12/05/2020 4:42 PM EST EXAMINATION: XR CERVICAL SPINE 4 OR 5 VIEWS CLINICAL HISTORY: Surgical consult, neck pain with upper extremity pain TECHNIQUE: 4 views of the cervical spine including lateral flexion and extension images. COMPARISON: None FINDINGS: The alignment of the vertebral bodies is normal. No acute osseous abnormality is seen. Mild disc space narrowing demonstrated C6-7. Degenerative disease noted in the lateral masses greatest inferiorly. No significant abnormality of motion is demonstrated between flexion and extension images. Procedure Note Humberto Ospina MD - 12/05/2020 EXAMINATION: XR CERVICAL SPINE 4 OR 5 VIEWS CLINICAL HISTORY: Surgical consult, neck pain with upper extremity pain TECHNIQUE: 4 views of the cervical spine including lateral flexion and extensionimages. COMPARISON: None FINDINGS: The alignment of the vertebral bodies is normal. No acute osseousabnormality is seen. Mild disc space narrowing demonstrated C6-7. Degenerative diseasenoted in the lateral masses greatest inferiorly. No significant abnormality ofmotion is demonstrated between flexion and extension images. IMPRESSION 1 mild evidence of degenerative disc disease at C6-7. 2. Osteoarthritis. 3. No instability. Thank you for letting us participate in the care of this patient. Forquestions regarding this report, please contact the number below. Sera White NICKEL PLANT OPERATOR IMG DX ORDERABLES documented in this encounter Visit Diagnoses Diagnosis Neck pain Cervicalgia documented in this encounter Care Teams Breaker Machine Tender Relationship Specialty Start Date End Date Radha Mckeon MD [address] [place] [address] PCP - General 09/23/10 documented as of this encounter
--- OUTSIDE RECORDS SUMMARY | 2024-07-24 17:25 | XMS_ITS | Encounter Summary ---
Author Organization [facility] [place] [address] Care Team Providers Care Featherer Name Role Phone Radha Mckeon MD Primary Care Provider [phone] Encounter Details Date Type Department Care Team (Late st Contact Info) Description 04/30/2021 Telephone [place] [address] Jovan Duong MD [facility] [place] [address] Social History Tobacco Use Types Packs/Day Years [...] AM EDT Hospital Encounter [place] [address] Arrived 02/22/2025 1:30 PM EDT Appointment Hematology [place] [address] 02/22/2025 2:30 PM EDT Office Visit Hematology [place] [address] Ellis Childers MD [facility] DR [place] [address] Felicita Landa APRN [facility] [address] [place] [address] documented as of this encounter Visit Diagnoses Not on filedocumented in this encounter Care Teams Featherer Relationship Specialty Start Date End Date Radha Mckeon MD [address] [place] [address] PCP - General 09/23/10 documented as of this encounter
--- OUTSIDE RECORDS SUMMARY | 2024-07-24 17:25 | XMS_ITS | Encounter Summary ---
Author Organization [place] [address] Care Team Providers Care Coconut Jelly Roller Name Role Phone Radha Mckeon MD Primary Care Provider [phone] Reason for Visit * Reason Comments Establish Care trigger finger right middle * Consultation (Routine) - Closed Specialty Diagnoses / Procedures Referred By Becki guillory Referred To Contact Orthopaedics Diagnoses Trigger finger, right middle finger TRIGGER FINGER FOR RIGHT MIDDLE FINGER Radha Mckeon MD [address] [place] [address] [facility] [address] [place] [address] Referral ID Status Reason Start Date Expiration Date V isits Requested Visits Authorized [id number] Closed Consult, Test & Treat Connection Center PCP Updated and/or Approved 02/11/2021 02/11/2022 6 6 Encounter Details Date Type Department Care Team (Late st Contact Info) Description 02/21/2021 3:00 PM EDT Office Visit [place] [address] Jovan Duong MD [facility] [address] [place] [address] Trigger middle finger of right hand Social [...] Sign Reading Time Taken Comments Blood Pressure 134/64 02/21/2021 2:51 PM EDT Pulse 57 02/21/2021 2:51 PM EDT Temperature 36.3 ??C (97.4 ??F) 02/21/2021 2:51 PM ED T Respiratory Rate - - Oxygen Saturation - - Inhaled Oxygen Concentration - - Weight 83.5 kg (184 lb) 02/21/2021 2:51 PM EDT Height 182.9 cm (6') 02/21/2021 2:51 PM EDT Body Mass Index 24.95 02/21/2021 2:51 PM EDT documented in this encounter Progress Notes * Marissa Holliday MD - 02/21/2021 3:00 PM EDT ORTHOPAEDIC SURGERY CLINIC NEW PATIENT EVALUATION DATE OF VISIT: 02/21/21 Chief complaint: Chief Complaint Patient presents with ??? Establish Care trigger finger right middle History of present illness: Malik Machado is a 70 y.o. year-old RHD male who is seen today for right long finger triggering. Notes that this has been occurring for about 3-4 months. Catching and pain started after he had been chopping wood and ice outside in the winter. Notes the catching predominantly occurs at night. Also associated with pain. Notes occasional catching and locking that will req uire his other hand to pull the finger straight. Has used voltaren gel without much relief. No numbness or tingling, fevers, chills. No recent trauma, bites, or puncture wounds. No change in redness or swelling in the past week. Does note the pain and catching has been getting more consistent over the past few weeks. Currently on disability, does like to play [place] [employer]. Past Medical history: Patient Active Problem List Diagnosis Date Noted ??? A-fib 08/13/2011 ??? Hypertension 08/13/2011 ??? Neck pain 12/05/2020 ??? Numbness and [...] 08/13/2011 ??? Chronic back pain, causing disability History of blood clots or bleeding disorders: none reported. On Xarelto for Afib. Medications: ??? pregabalin (LYRICA) 100 mg Capsule ??? metoprolol succinate XL (Toprol-XL) 100 mg Tablet Sustained Release 24 hr ??? flu vacc [id number],65yr up,/PF (FluZONE HighDose Quad 20-21 PF) 240 mcg/0.7 mL Syringe ??? lidocaine-prilocaine (EMLA) Cream ??? polyethylene glycoL (Miralax) 17 gram Powder in Packet ??? senna-docusate (Pericolace) 8.6-50 mg Tablet ??? acyclovir (ZOVIRAX) 200 mg Capsule ??? diclofenac (VOLTAREN) 1 % Gel ??? tamsulosin (Flomax) 0.4 mg Capsule ??? fluticasone propionate (FLONASE) 50 mcg/actuation [place], Suspension ??? Xarelto 20 mg Tablet ??? oxyCODONE (ROXICODONE) 10 mg Tablet ??? lamoTRIgine (LAMICTAL) 25 mg Tablet ??? SUMAtriptan (IMITREX) 100 mg Tablet ??? Triamcinolone Acetonide 0.025 % Lotion ??? omeprazole (PRILOSEC) 20 mg Capsule, Delayed Release(E.C.) ??? BOTOX 200 unit Recon Soln ??? verapamil (CALAN-SR) 120 mg Tablet Sustained Release ??? levothyroxine (SYNTHROID) 100 mcg Tablet ??? MULTIVITAMIN W-MINERALS/LUTEIN (CENTRUM SILVER ORAL) ??? [place]-3 Fatty Acids-Vitamin E (FISH OIL) 1,000 mg Cap ??? baclofen (LIORESAL) 10 mg tablet ??? simvastatin (ZOCOR) 10 mg tablet ??? acetaminophen (TYLENOL) 500 mg Tablet Allergies: Allergies Allergen Reactions ??? Atorvastatin Other (See Comments) Adverse effect caused liver enzyme abnormalitiies ??? Elavil [Amitriptyline] Palpitations ??? Flecainide Other (See Comments) Adverse effect caused MO and QRS prolongation Social history: Social History Tobacco Use ??? Smoking status: Former Smoker Packs/day: 2.00 Years: 16.00 Pack years: 32.00 Types: Cigarettes Quit date: 11/09/1982 Years since quittin.3 ??? Smokeless tobacco: Never Used Substance Use Topics ??? Alcohol use: No Occupation: on disability Questionnaire Responses: [facility] Surgical Postop Visit 02/21/2021 PROMIS-10 General Health Good PROMIS-10 Quality of Life Very Good PROMIS-10 Physical Health Good PROMIS-10 Mental Health Excellent PROMIS-10 Social Activity Excellent PROMIS-10 Everyday Activities Mostly PROMIS-10 Pain 8 PROMIS-10 Fatigue Moderate PROMIS-10 Social Roles Good PROMIS-10 Anxious or Depressed Rarely PROMIS PHYSICAL HEALTH SCORE - PROMIS MENTAL [...] on same body part - TKA Grade - Pain in other KNEE - Back pain at this moment - Satisfaction with Treatment - Choose Same Treatment Again - [facility] Response 12/30/2020 KOOS JR Scores - OSWESTRY DISABILITY INDEX 42 (Severe disability) Spine [facility] Response 12/30/2020 Oswestry (RAYMUNDO) Score 42 (Severe disability) Neck (NDI) Score 44 (Moderate disability) KOOS JR Scores - Vital signs: Temp: [36.3 ??C (97.4 ??F)] Heart Rate: [57] BP: (134)/(64) Body mass index is 24.95 kg/m??. Physical Exam: No acute distress Affect within normal limits for age Alert and oriented Speech clear and intact, appropriate for age Head atraumatic Respirations unlabored Brisk capillary refill peripheral bilateral upper extremities, warm and well perfused Right hand exam: Negative tinel at wrist. The patient has tenderness to palpation about the flexor surface of the hand at the level of the 2nd MCP (long finger). Also some TTP about the flexor tendon more distally to the level of the DIP joint of the long finger. Mild TTP about the flexor surface of the index and ring fingers. SILT in all fingers, m/r/u distributions in hand. Not able to get finger to catch or lock on exam today. Active flexion of all fingers with limitation of terminal 10 degrees of flexion of the right long finger. Imaging: Personal review of the patient's imaging reveals: X-rays of the right hand and long finger show no significant arthritis or other gross deformities. Assessment/Plan: 70 y.o. year-old male who presents to clinic today for pain and catching at his right long finger. We had a long discussion with the patient regarding his clinical presentation that is most consistent with a trigger finger though it is somewhat atypical in the amount of pain and tenderness he has more distally in the finger distal to the level of the A1 kayla as well as other fingers in the hand. Suspect his increased pain throughout the hand is related to significant inflammation secondary to the triggering, though could be related to more diffuse tenosynovitis. No clinicalsymptoms to suggest infectious etiology at this time and chronicity of the pain without acute worsen ing also does not favor infection. We discussed the nature of trigger finger and potential treatment options including continued symptomatic management with short term immobilization and icing, potential for injection, with more invasive surgical intervention with A1 kayla release. The patient is significantly bothered by his pain and catching symptoms and was interested in proceeding with an injection. We did discuss the both diagnostic and therapeutic role for injection as well as the risks including but not limited to, bleeding particularly given he is on Xarelto, continued pain, blood glucose elevation. We discussed that approximately 60 to 70% of patients do find improvement with a single injection. Alternatively we did discuss that operative intervention could also be pursued if hedoes not respond to the injection or if he continues to have significant symptoms. The patient was in agreement to proceed with trigger finger injection. We did perform a trigger finger injection with 2 cc of 1:1 betamethasone and 1% lidocaine. The patient was noted to have improvement in pain withthe numbing medication. Upon completion of the injection, we did asked the patient to flex down andhe was noted to have triggering at this time. Patient does have fixed triggering that is not passively correctable and requires use of his other had to extend. The patient's injection site was dressed with a Band-Aid and we did give him strict return precautions as well as recommendation to call office if he has any fevers, chills, increasing redness, pain out of portion in his finger. This plan was discussed with the patient and they are in agreement. All of the patient's questions were answered, and they were satisfied with the discussion. Follow up: Approximately 3 weeks for repeat clinical exam. No x-rays are needed at that time. Patient to call sooner with any questions or concerns. The above dictation was made with voice recogonition software. Marissa Holliday MD [facility] Orthopaedic Surgery Orthopaedic Surgery PGY-4 PROCEDURE: A steroid injection was performed at Right middle finger base volar, flexor tendon sheath using 1% plain Lidocaine and 1cc bethamethasone. This was well tolerated. NVI pre and post procedure, middle finger becoming anesthetized after injection. Flexor intact after injection. Care was taken to note needle would not move with moving of finger, not injecting tendon. I have seen and examined the above named patient, reviewed and edited the contents of the note supplied by the resident or physician tdp displays analyst with whom I saw the patient, and reviewed our findings and recommendations with the patient in person. Jovan Duong MD, MPH Department of Orthopaedic Surgery Pediatric Orthopaedic & Hand Surgeon documented in this encounter Plan of Treatment Upcoming Encounters Date Type Department Care Team (Late st Contact Info) Description 08/18/2024 11:00 AM EDT Hospital Encounter Non[place] [address] Arrived 02/22/2025 1:30 PM EDT Appointment Hematology [place] [phone] 02/22/2025 2:30 PM EDT Office Visit Hematology [place] [phone] Ellis Childers MD [facility] DR HEMATOLOGY [place] [address] Felicita Landa APRN [facility] DR HEMATOLOGY [place] [address] documented as of this encounter Visit Diagnoses Diagnosis Trigger middle finger of right hand Trigger finger (acquired) documented in this encounter Care Teams Coconut Jelly Roller Relationship Specialty Start Date End Date Radha Mckeon MD [address] [place] [address] PCP - General 09/23/10 documented as of this encounter
--- OUTSIDE RECORDS SUMMARY | 2024-07-24 17:25 | XMS_ITS | Encounter Summary ---
Author Organization [facility] [place] [address] Care Team Providers Care Entry Level Java Developer Name Role Phone Radha Mckeon MD Primary Care Provider [phone] Encounter Details Date Type Department Care Team (Late st Contact Info) Description 03/17/2021 Telephone Cardiology at [address] [address] Florecita Lpoez, RN Social History Tobacco Use Types Packs/Day [...] encounter Miscellaneous Notes * Telephone Encounter - Florecita Lopez, RN - 03/18/2021 1:31 PM EDT RTC to [facility], to convey ANDREE Shelley's message concerning anticoagulant hold pre procedure, as well as to let them know there are no special precautions in this case regarding Mr Machado's Loop Recorder. Phone for [facility] Center: [phone], contact June * Telephone Encounter - Florecita Lopez RN - 03/17/2021 2:22 PM EDT Medical Questions posed by Pain and Spine Center in the care of Mr Machado. Mr Machado is scheduledfor a Cervical Injection on March 28, with a Xarelto hold. Pain Center is requesting to know how long after this procedure can they schedule Mr Machado for a Radio frequency Nerve Block, and this requires a 3 day Xarelto hold, and 24 hours restart. If possible they would like to perform a Radio frequency Ablation, with 3 day Xarelto hold, and 24 hours before restart. This is usually scheduled 2 weeks, post Nerve Block, and can be scheduled 1 month after the Nerve block. They also have a question as to whether the Ablation will interfere with Mr Machado's Loop Recordertransmissions. They usually cover patient's pacemaker, and sometimes have to restart it, will it kobe problem for a patient with the loop recorder. documented in this encounter Plan of Treatment Upcoming Encounters Date Type Department Care Team (Late st Contact Info) Description 08/18/2024 11:00 AM EDT Hospital Encounter Non-[place] [address] Arrived 02/22/2025 1:30 PM EDT Appointment [place]ology [place] [address] 02/22/2025 2:30 PM EDT Office Visit Hematology [place] [phone] Ellis Childers MD [facility] HEMATOLOGY [place] [address] Felicita Landa APRN [facility] HEMATOLOGY [place] [address] documented as of this encounter Visit Diagnoses Not on filedocumented in this encounter Care Teams Entry Level Java Developer Relationship Specialty Start Date End Date Radha Mckeon MD [address] [place] [address] PCP - General 09/23/10 documented as of this encounter
--- OUTSIDE RECORDS SUMMARY | 2024-07-24 17:25 | XMS_ITS | Encounter Summary ---
Author Organization [place] [address] Care Team Providers Care Hr Internship Name Role Phone Radha Mckeon MD Primary Care Provider [phone] Reason for Referral * Consultation (Routine) - Closed Specialty Diagnoses / Procedures Referred By Contac t Referred To Contact Orthopaedics Diagnoses Left shoulder pain Neck and L shoulder pain, assess for intrinsic L shoulder pathology Rey Clayton MD [facility] [address] [facility] [address] [place] [id number] Referral ID Status Reason Start Date Expiration Date V isits Requested Visits Authorized [id number] Closed Consult, Test & Treat 12/30/2020 12/30/2021 1 1 * Consultation (Routine) - Closed Specialty Diagnoses / Procedures Referred By Contlibby t Referred To Contact Pain and Spine Center Diagnoses Neck pain *12/30 waiting for anticoag* Procedure - Rey Dodge MD [facility] [address] [facility] [place] [address] Referral ID Status Reason Start Date Expiration Date V isits Requested Visits Authorized [id number] Closed Consult, Test & Treat 12/30/2020 12/30/2021 1 1 Reason for Visit * Reason Comments Cervicalgia Left Arm Pain * Consultation (Routine) - Closed Specialty Diagnoses / Procedures Referred By Contac t Referred To Contact Pain and Spine Center Diagnoses Neck pain Numbness and tingling in left arm Sera White APRN [facility] [place] [address] [facility] [place] [address] Referral ID Status Reason Start Date Expiration Date V isits Requested Visits Authorized [id number] Closed Consult, Test & Treat 12/05/2020 12/05/2021 3 3 Encounter Details Date Type Department Care Team (Late st Contact Info) Description 12/30/2020 1:40 PM EST Office Visit [place] [address] Rey Clayton MD [facility] [place] [address] Neck pain Social History Tobacco Use Types Packs/Day Years [...] Sign Reading Time Taken Comments Blood Pressure 150/77 12/30/2020 1:46 PM EST Pulse 55 12/30/2020 1:46 PM EST Temperature - - Respiratory Rate - - Oxygen Saturation - - Inhaled Oxygen Concentration - - Weight 79.4 kg (175 lb) 12/30/2020 1:46 PM EST Height 182.9 cm (6') 12/30/2020 1:46 PM EST Body Mass Index 23.73 12/30/2020 1:46 PM EST documented in this encounter Progress Notes * Rey Clayton MD - 12/30/2020 1:40 PM EST Chief complaint: Neck pain radiating to left upper extremity History of present illness: Mr. Machado is a 70-year-old [id number] male whom I am seeing in consultation for Dr. Levy. She has neck pain that radiates to his left shoulder as well as to hisleft lateral arm forearm. The pain tends be most bothersome in the left shoulder. The symptoms cameon insidiously about 6 months ago. He is wondering if they are related to a fall. The pain tends dewayne worse with neck flexion as well as turning to the left. Overhead activity also bothersome. Nothing reliably improves the pain. Reports some numbness in his left lateral arm, forearm, and radial 3 digits. His left upper extremity feels weak to him, particularly overhead activity. The pain does bother him at night. He feels somewhat off balance. He has no change in his fine motor skills. He denies constitutional symptoms or change in his bowel or bladder function. He intermittently takes oxycodone 10-15 mg, at night. He also using marijuana to help with sleeping at night. He takes Tylenol with minimal benefit. Continue 2- month course of physical therapy with no improvement. He has started a new physical therapy program, so it is difficult for him to know if that is helped. He has not hadprior cervical injections. He has not had prior cervical spine surgery. He has had 3 lumbar operations resulting in L5-S1 fusion. Past medical history: Atrial fibrillation, hypertension, right bundle branch block Past surgical history: Lumbar surgeries as above, total knee knee arthroplasty and revision, left shoulder arthroscopy Medications and allergies were reviewed and are in ED H. He is on Xarelto for the atrial fibrillation. Family history: Heart disease, cancer Social history: He is not currently working. He does not smoke or drink. Review of systems: All negative except musculoskeletal as above. Physical exam Patient is 6 feet tall, 125 pounds, with a BMI of 27 General: Patient is comfortable, no acute distress Neck: His neck is nontender to palpation. He can flex 20 degrees to extend 10 degrees, rotate 40 degrees, and side bend 15 degrees. Neurological exam: He walks an antalgic gait. He has some difficulty with tandem gait. Motor exam reveals 4+/5 strength of his left deltoid was 5/5. Reflexes 1/4 in the upper extremities, 2/4 at the knees, 1/4 at the ankles. Positive Spurling sign on the left causes some left shoulder pain. Karis's is negative bilaterally. No clonus. Shoulder exam: There is positive impingement signs on the left. He is positive empty can sign left. Vascular exam: He has palpable radial pulses bilaterally. Imaging: AP and lateral flexion-extension x-rays of the cervical spine from 12/05/2020 were reviewed.This shows degenerative changes most pronounced at C5-6 and C6-C7. There is no instability. MRI of the cervical spine from 07/30/2021 was reviewed. He has degenerative changes from C5-C7. C3-4, there is moderate-severe bilateral foraminal stenosis. C4-5, there is moderate-severe left and mild right foraminal stenosis. At C5-C6, there is moderate-severe left and mild right foraminal narrowing. C6-7, there is moderate to severe right and mild left foraminal narrowing. Assessment/plan: Mr. Machado is a 70-year-old male who presents with approximate 6 months of neck pain radiating to his left upper extremity as well as focal left shoulder pain. I think the majority of his symptoms are emanating from the cervical spine, though the shoulder could also be contributing. We discussed treatment options for his neck pain and radiculopathy including further physical therapy, continued medication, epidural steroid injection, and surgery. He would like to go ahead with an injection for diagnostic and therapeutic purposes. If he gets some benefit from the injection, I would be more confident that his symptoms are coming predominantly from the cervical spine. Surgery in his case would most likely involve a C4-6 ACDF. In terms of the left shoulder, I will refer him to see someone in orthopedics about that. If they feel this is predominantly related to his neck and his symptoms recur after his cervical injection, I would be happy to see him back to discuss surgery. documented in this encounter Plan of Treatment Upcoming Encounters Date Type Department Care Team (Late st Contact Info) Description 08/18/2024 11:00 AM EDT Hospital Encounter [place] [address] Arrived 02/22/2025 1:30 PM EDT Appointment Hematology [place] [address] 02/22/2025 2:30 PM EDT Office Visit Hematology [place] [phone] Ellis Childers MD [facility] [address] [place] [address] Felicita Landa APRN [facility] [address] HEMATOLOGY [place] [address] Scheduled Referrals Name Type Priority Associated Diagnoses Order Schedule Referral to Pain and Spine Center (Internal only) Outpatient Referral Routine Neck pain Ordered: 12/30/2020 Referral to Orthopaedics Outpatient Referral Routine Neck pain Ordered: 12/30/2020 documented as of this encounter Visit Diagnoses Diagnosis Neck pain Cervicalgia documented in this encounter Care Teams Hr Internship Relationship Specialty Start Date End Date Radha Mckeon MD [address] [place] [address] PCP - General 09/23/10 documented as of this encounter
--- OUTSIDE RECORDS SUMMARY | 2024-07-24 17:25 | XMS_ITS | Encounter Summary ---
Author Organization [facility] [place] [address] Care Team Providers Care Emu Farmer Name Role Phone Radha Mckeon MD Primary Care Provider [phone] Encounter Details Date Type Department Care Team (Late st Contact Info) Description 03/27/2021 Telephone [place] [phone] Esha Gamboa, RN Social History Tobacco Use [...] Encounter - Esha Gamboa RN - 03/27/2021 10:09 AM EDT In coming call from Malik stating that he was sorry for getting upset, but he had waited so long to get this done and now got to wait longer. I told him I really understood and hopefully he is put on the cancellation list and gets in sooner. documented in this encounter Plan of Treatment Upcoming Encounters Date Type Department Care Team (Late st Contact Info) Description 08/18/2024 11:00 AM EDT Hospital Encounter Non-Invasive [place] [address] Arrived 02/22/2025 1:30 PM EDT Appointment Hematology [place] [address] 02/22/2025 2:30 PM EDT Office Visit Hematology [place] [address] Ellis Childers MD [facility] DR HEMATOLOGY [place] [address] Felicita Landa APRN [facility] HEMATOLOGY [place] [address] documented as of this encounter Visit Diagnoses Not on filedocumented in this encounter Care Teams Emu Farmer Relationship Specialty Start Date End Date Radha Mckeon MD [address] [place] [address] PCP - General 09/23/10 documented as of this encounter
--- OUTSIDE RECORDS SUMMARY | 2024-07-24 17:25 | XMS_ITS | Encounter Summary ---
Author Organization [facility] [place] [address] Care Team Providers Care Linen Supply Load Builder Name Role Phone Radha Mckeon MD Primary Care Provider [phone] Encounter Details Date Type Department Care Team (Late st Contact Info) Description 02/20/2021 Telephone [facility] [place] [phone] Naz Hanley, RN Social History Tobacco Use Types Packs/Day [...] encounter Miscellaneous Notes * Telephone Encounter - Naz Hanley, RN - 02/20/2021 4:30 PM EDT Pt called into the artificial breeding technician line to state that he took his dose of Xarelto today and has a KATIE scheduled for tomorrow with Dr. Robles. Pt was advised that Xarelto needs to be held for 3 days prior toinjection. Pt was transferred to scheduling team to reschedule injection. documented in this encounter Plan of Treatment Upcoming Encounters Date Type Department Care Team (Late st Contact Info) Description 08/18/2024 11:00 AM EDT Hospital Encounter Non-[place] [address] Arrived 02/22/2025 1:30 PM EDT Appointment Hematology [place] [phone] 02/22/2025 2:30 PM EDT Office Visit Hematology and Oncology at [place] [phone] Ellis Childers MD [facility] [address] [place] [address] Felicita Landa APRN [facility] [address] [place] [address] documented as of this encounter Visit Diagnoses Not on filedocumented in this encounter Care Teams Linen Supply Load Builder Relationship Specialty Start Date End Date Radha Mckeon MD [address] [place] [address] PCP - General 09/23/10 documented as of this encounter
--- OUTSIDE RECORDS SUMMARY | 2024-07-24 17:25 | XMS_ITS | Encounter Summary ---
Author Organization [facility] [place] [address] Care Team Providers Care Vacuum Form Operator Name Role Phone Radha Mckeon MD Primary Care Provider [phone] Encounter Details Date Type Department Care Team (Late st Contact Info) Description 12/30/2020 Telephone [place] [phone] Tyesha Jonas RN Social History Tobacco Use Types Packs/Day [...] Miscellaneous Notes * Telephone Encounter - Tyesha Jonas RN - 12/30/2020 3:02 PM EST Risk Stratification Note to Facilitate Scheduling Injection Spoke to pt today to determine the ROSELIA Risk Stratification to facilitate scheduling the KATIE as ordered by Rey Clayton MD. Chart reviewed; see provider's office note for specifics re pain asmt, imaging and plans. Have you had any steroid injections anywhere in your body within the last two weeks? No Patient taking, or having taken oral steroids in the last 2 wks (14 days)? No Patient taking any NSAIDs? No Patient taking Aspirin or Aggrenox (dipyridamole) No If yes, dose: Is this self prescribed or ordered by a provider: If ordered; Name of prescribing provider: If taking ASA; please ask the following questions to assist in determining ASA hold instructions - h/o Myocardial Infarction (CO): - h/o Coronary Artery Disease (CAD): - h/o Stroke: - h/o Arteriosclerotic Vascular Disease (ASCVD): - h/o Transient Ischemic Attack (TIA): - h/o Atrial Fibrillation (AFib): Yes - h/o Deep Vein Thrombosis (DVT): Pt taking Coumadin? Taking Xarelto If yes; instrumentation controls engineer to arrange INR level through the lab, as ordered by provider, to be performed 1 hr prior to procedure. Diagnosed/treated for an active infection in the past 2 wks? No Patient taken an antibiotic in the past 2 wks? No Abx taken routinely as prophylaxis? No Per pt report; any current sxs suggestive of active infection? No Patient has pacemaker/defibrillator: No If yes: Model: Provider/Practice: ROSELIA Questions pertaining to Risk Stratification: Patient taking anticoagulants/ Antiplatelets, or pt is taking concurrent ASA/NSAIDS)? Yes If yes, name/dose: Xarelto Prescribing provider: Diogo Pryor MD Home Assessment Nurse here at [facility] was informed that he should continue medication as previously ordered; that he will be contacted by a [facility] instrumentation controls engineer once permission has been obtained from his prescribing prescriber to temporarily discontinue anticoagulant per [facility] protocol. Pertinent Medical History (per active problem list: 's self report) - h/o throbocytopenia: Yes - h/o Bleeding tendency: Yes, Xarelto - h/o Cirrhosis: No - h/o Liver disease; abnormal liver function: Fatty Liver - h/o Chronic Kidney Disease (CKD); abnormal renal/kidney function: No - Dialysis: No Per ROSEL[facility] Guidelines/[facility] Guidelines (taking into account pt's e- problem list and pt's self report as noted above; the requested procedure is stratified as a: High Risk Disposition: Taken out to Schedulers for an appointment Patient's questions regarding requested procedure were answered and patient verbalized understanding. knows how to contact the [facility] and understands that he may do so at any time should he develop any questions or concerns. documented in this encounter Plan of Treatment Upcoming Encounters Date Type Department Care Team (Late st Contact Info) Description 08/18/2024 11:00 AM EDT Hospital Encounter Non-[place] [address] Arrived 02/22/2025 1:30 PM EDT Appointment Hematology and Oncology at [place] [phone] 02/22/2025 2:30 PM EDT Office Visit Hematology and Oncology at [place] [address] Ellis Childers MD [facility] DR HEMATOLOGY [place] [address] Felicita Landa APRN [facility] [address] HEMATOLOGY [place] [address] documented as of this encounter Visit Diagnoses Not on filedocumented in this encounter Care Teams Vacuum Form Operator Relationship Specialty Start Date End Date Radha Mckeon MD [address] [place] [address] PCP - General 09/23/10 documented as of this encounter
--- OUTSIDE RECORDS SUMMARY | 2024-07-24 17:25 | XMS_ITS | Encounter Summary ---
Author Organization [facility] [place] [address] Care Team Providers Care Flight Communications Operator Name Role Phone Radha Mckeon MD Primary Care Provider [phone] Encounter Details Date Type Department Care Team (Late st Contact Info) Description 04/29/2021 Telephone [place] [phone] Sera Lau RN Social History Tobacco Use [...] Telephone Encounter - Sera Lau RN - 04/29/2021 11:03 AM EDT Outgoing call placed to pt. Pt left voicemail on sap abap developer line asking if he can take his medications prior to his KATIE tomorrow. Per pt, he stopped his fish oil supplement yesterday. Pt informed that he needs to be off his fish oil x7 days prior to procedure. He verbalized understanding, pt transferred to scheduling to reschedule procedure. documented in this encounter Plan of Treatment Upcoming Encounters Date Type Department Care Team (Late st Contact Info) Description 08/18/2024 11:00 AM EDT Hospital Encounter Non-[place]vasive [place] [address] Arrived 02/22/2025 1:30 PM EDT Appointment Hematology [place] [phone] 02/22/2025 2:30 PM EDT Office Visit Hematology [place] [phone] Ellis Childers MD [facility] DR HEMATOLOGY [place] [address] Felicita Landa APRN [facility] [address] HEMATOLOGY [place] [address] documented as of this encounter Visit Diagnoses Not on filedocumented in this encounter Care Teams Flight Communications Operator Relationship Specialty Start Date End Date Radha Mckeon MD [address] [place] [address] PCP - General 09/23/10 documented as of this encounter
--- OUTSIDE RECORDS SUMMARY | 2024-07-24 17:25 | XMS_ITS | Encounter Summary ---
Author Organization [facility] [place] [address] Care Team Providers Care Duct Cleaner Name Role Phone Radha Mckeon MD Primary Care Provider [phone] Reason for Referral * Consultation (Routine) - Duplicate Referral Specialty Diagnoses / Procedures Referred By Becki guillory Referred To Contact [facility] and Spine Center Diagnoses Right knee pain, unspecified chronicity Pain - Chronic right knee pain s/p TKA revision/ XR 12/02 in eDH schedule with Sera - new issue Librado [address] PA [facility] [place] [address] [facility] [place] [address] Referral ID Status Reason Start Date Expiration Date Visits Requested Visits Authorized [id number] Duplicate Referral Consult, Test & Treat 12/05/2020 12/05/2021 3 3 * Physical Therapy (Routine) - Specialty Diagnoses / Procedures Referred By Becki guillory Referred To Contact Physical Therapy Diagnoses Right knee pain, unspecified chronicity Librado aWy PA [facility] [place] [address] Referral ID Status Reason Start Date Expiration Date V isits Requested Visits Authorized [id number] Evaluate and Treat 12/05/2020 06/03/2021 12 12 Encounter Details Date Type Department Care Team (Late st Contact Info) Description 12/05/2020 Telephone [place] [address] PA [facility] [place] [address] Social History Tobacco Use Types Packs/Day Years [...] Encounter - Librado [address] PA - 12/05/2020 11:55 AM EST I did call the patient to discuss his inflammatory markers for chronic knee pain 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 His WBC was 5.8, his CRP was 1.0 and his ESR was 9. We would recommend against aspiration as these are reassuring in the setting of infection. We discussed that the likely source of his pain is possible CRPS,scar tissue, referred pain. We discussed this is been difficult to pinpoint disease had chronic knee pain ever since his knee replacement. We discussed the next steps in trying to help manage his pain would be with either a physical therapy trial with desensitization therapy is a lot of the pain that he describes as nervous in nature. We discussed the other options to attempt a geniculate nerve block which I think he would likely benefit from. He is off to see a pain specialist today in regardsto an injury about his shoulder and possible brachial plexus. I did encourage him to discuss with this, I will place a referral specifically for his right knee to the pain center as well as a referral to PT for desensitization therapy. We reviewed follow up after either of the interventions. documented in this encounter Plan of Treatment Upcoming Encounters Date Type Department Care Team (Late st Contact Info) Description 08/18/2024 11:00 AM EDT Hospital Encounter [place] [address] Arrived 02/22/2025 1:30 PM EDT Appointment Hematology [place] [address] 02/22/2025 2:30 PM EDT Office Visit Hematology [place] [address] Ellis Childers MD [facility] DR [place] [address] Felicita Landa APRN [facility] [address] [place]ATOLOG[place] [address] Scheduled Referrals Name Type Priority Associated Diagnoses Orde r Schedule Referral to Physical Therapy Outpatient Referral Routine Right knee pain, unspecified chronicity Ordered: 12/05/2020 Referral to [facility] and Sp[facility] Center (Internal only) Outpatient Referral Routine Right knee pain, unspecified chronicity Ordered: 12/05/2020 documented as of this encounter Visit Diagnoses Diagnosis Right knee pain, unspecified chronicity- Primary documented in this encounter Care Teams Duct Cleaner Relationship Specialty Start Date End Date Radha Mckeon MD [address] [place] [address] PCP - General 09/23/10 documented as of this encounter
--- OUTSIDE RECORDS SUMMARY | 2024-07-24 17:25 | XMS_ITS | Encounter Summary ---
Author Organization [facility] [place] [address] Care Team Providers Care Sales Support Specialist Name Role Phone Radha Mckeon MD Primary Care Provider [phone] Encounter Details Date Type Department Care Team (Late st Contact Info) Description 04/29/2021 Telephone [place] [phone] Sera Lau RN Social History Tobacco Use [...] Encounter - Sera Lau RN - 04/29/2021 10:37 AM EDT Malik Machado :1950 Contact made with patient: I spoke to Mr. Machado at 10:37 AM regarding upcoming Neither cervical epidural steroid injection scheduled on 04/30/21 (date) scheduled at 1030 (time) with Dr. Librado Robles DO. Medication and Allergy reconciliation: 1. Changes were made in the telephone encounter per patient; marked as reviewed, and closed. 3. Have you had any steroid injections anywhere in your body within the last two weeks? no Arrival time: The patient was instructed to arrive at 1000 (30 minutes prior to procedure start time - 60 minutesprior for RF patients with a pacemaker). Antibiotics/Skin assessment/Illness symptoms/Pain level assessment : 1. Are you currently taking an antibiotic for any active infections No 2. Do you currently have any rashes, blisters, skin breakdown or open wounds. No 3. Have you received, or are you scheduled to received a COVID vaccination Yes . 2nd dose 01/20/21. Pain and Anti-anxiety Medications: 1. Nerve Block [...] any diagnosed bleeding disorders: No Anticoagulants: Yes The patient confirmed they discontinued taking anticoagulant Xarelto on 04/25/21 (date). NPO instructions given to patient: 1. Last solid food intake until 0430 (6 hours prior to procedure). 2. Clear liquids (christina becca, tea, black coffee, water, grape juice, apple juice, or cranberry juice) only intake until 0830 (2 hours prior to procedure). NSAIDs: Does the patient take Aspirin/ASA? No Does the patient take an NSAID? No Diabetic instructions: Patient was advised to inform their PCP regarding safe fasting and the NPO requirements for their upcoming procedure and given the [facility] Nurse Triage Line . Implant: Patient has pacemaker/defibrillator: No Da HIRSCH documented in this encounter Plan of Treatment Upcoming Encounters Date Type Department Care Team (Late st Contact Info) Description 08/18/2024 11:00 AM EDT Hospital Encounter [place] [address] Arrived 02/22/2025 1:30 PM EDT Appointment Hematology [place] [address] 02/22/2025 2:30 PM EDT Office Visit Hematology [place] [phone] lElis Childers MD [facility] DR [place] [address] Felicita Landa APRN [facility] DR [place] [address] documented as of this encounter Visit Diagnoses Not on filedocumented in this encounter Care Teams Sales Support Specialist Relationship Specialty Start Date End Date Radha Mckeon MD [address] [place] [address] PCP - General 09/23/10 documented as of this encounter
--- OUTSIDE RECORDS SUMMARY | 2024-07-24 17:25 | XMS_ITS | Encounter Summary ---
Author Organization [facility] [place] [address] Care Team Providers Care Foreign Service Officer Name Role Phone Radha Mckeon MD Primary Care Provider [phone] Reason for Visit * Reason Onset Date Comments Medication Refill 02/03/2021 Metoprolol Encounter Details Date Type Department Care Team (Late st Contact Info) Description 02/03/2021 Refill Cardiology at [address] [address] Halima Mckeon PA [facility] [address] Medication Refill (Metoprolol) Social History Tobacco Use Types Packs/Day Years [...] AM EDT Hospital Encounter Non-Invasive [place] [address] Arrived 02/22/2025 1:30 PM EDT Appointment Hematology [place] [address] 02/22/2025 2:30 PM EDT Office Visit [place]ematology [place] [address] Ellis Childers MD [facility] [place] [address] Felicita Landa APRN [facility] [address] [place] [address] documented as of this encounter Visit Diagnoses Diagnosis Paroxysmal atrial fibrillation Atrial fibrillation documented in this encounter Care Teams Foreign Service Officer Relationship Specialty Start Date End Date Radha Mckeon MD [address] [place] [address] PCP - General 09/23/10 documented as of this encounter
--- OUTSIDE RECORDS SUMMARY | 2024-07-24 17:25 | XMS_ITS | Encounter Summary ---
Author Organization [facility] [place] [address] Care Team Providers Care Trans Router Name Role Phone Radha Mckeon MD Primary Care Provider [phone] Reason for Visit * Reason Onset Date Comments Pre Procedure Call 03/27/2021 Encounter Details Date Type Department Care Team (Late st Contact Info) Description 03/27/2021 Tele[place] [phone] Jovan Duong MD [facility] [place] [address] Pre Procedure Call Social History Tobacco Use Types Packs/Day Years [...] encounter Miscellaneous Notes * Telephone Encounter - Mariya Dolan - 03/27/2021 8:53 AM EDT We called to leave a message to schedule surgery with Dr Duong, but no voice mail set up. * Telephone Encounter - Valerio Irizarry - 03/27/2021 8:53 AM EDT Please call Malik back at [phone] TOMORROW AFTERNOON 04/12/21 To set up surgery with Dr. Duong documented in this encounter Plan of Treatment Upcoming Encounters Date Type Department Care Team (Late st Contact Info) Description 08/18/2024 11:00 AM EDT Hospital Encounter Non-Invasive [place] [address] Arrived 02/22/2025 1:30 PM EDT Appointment Hematology and Oncology at [place] [address] 02/22/2025 2:30 PM EDT Office Visit Hematology and Oncology at [place] [address] Ellis Childers MD [facility] [place] [address] Felicita Landa APRN [facility] [place] [address] documented as of this encounter Visit Diagnoses Not on filedocumented in this encounter Care Teams Trans Router Relationship Specialty Start Date End Date Radha Mckeon MD [address] [place] [address] PCP - General 09/23/10 documented as of this encounter
--- OUTSIDE RECORDS SUMMARY | 2024-07-24 17:25 | XMS_ITS | Encounter Summary ---
Author Organization [facility] [place] [address] Care Team Providers Care Vehicle Detailer Name Role Phone Radha Mckeon MD Primary Care Provider [phone] Encounter Details Date Type Department Care Team (Late st Contact Info) Description 05/22/2021 Telephone [place] [address] Tracy Calderon RN Social History Tobacco Use Types Packs/Day [...] Telephone Encounter - Tracy Calderon RN - 05/22/2021 3:36 PM EDT This RN sent an in-basket message to Dr. Duong, patients orthopedic surgeon, asking for recommendations on how long we should wait before rescheduling his steroid KATIE with Dr. Robles post hand surgery. Hayde, RN documented in this encounter Plan of Treatment Upcoming Encounters Date Type Department Care Team (Late st Contact Info) Description 08/18/2024 11:00 AM EDT Hospital Encounter [place] [address] Arrived 02/22/2025 1:30 PM EDT Appointment [place] [address] 02/22/2025 2:30 PM EDT Office Visit [place] [phone] Ellis Childers MD [facility] [place] [address] Felicita Landa APRN [facility] [place] [address] documented as of this encounter Visit Diagnoses Not on filedocumented in this encounter Care Teams Vehicle Detailer Relationship Specialty Start Date End Date Radha Mckeon MD [address] [place] [address] PCP - General 09/23/10 documented as of this encounter
--- OUTSIDE RECORDS SUMMARY | 2024-07-24 17:25 | XMS_ITS | Encounter Summary ---
Author Organization [facility] [place] [address] Care Team Providers Care Chemical Production Machine Operator Name Role Phone Radha Mckeon MD Primary Care Provider Reason for Visit * Reason Comments Follow Up Surgery knee and tibia pain- W/C-DOI-01/09/19-R-TKA revision DOS- 11/15/19 Encounter Details Date Type Department Care Team (Late st Contact Info) Description 12/02/2020 2:30 PM EST Office [place] [address] Sukhjinder Jauregui MD [facility] DR ORTHOPAED[place] [address] S/P right total knee arthroplasty revision - poly swab and patellar revision Shania 11/15/2019; Chronic pain of right knee; Debility Social History Tobacco Use Types Packs/Day Years [...] Sign Reading Time Taken Comments Blood Pressure 121/73 12/02/2020 2:21 PM EST Pulse 55 12/02/2020 2:21 PM EST Temperature - - Respiratory Rate - - Oxygen Saturation - - Inhaled Oxygen Concentration - - Weight 78 kg (172 lb) 12/02/2020 2:21 PM EST rep orted Height 182.2 cm (5' 11.73) 12/02/2020 2:[address] reported Body Mass Index 23.5 12/02/2020 2:21 PM EST documented in this encounter Progress Notes * [address] PA - 12/02/2020 2:30 PM EST Arthroplasty/Orthopaedic History: 1.??Right TKA. Dr. Mi. 01/14/2010. 2. Right TKA Revision. Aseptic revision of the patella. Dr. Jauregui. 11/15/2019 HPI: Malik Machado is a very pleasant 70 y.o. year-old male and is now 1 year post right total knee revision The patient has been doing poorly, due to continued, chronic right knee pain, low back pain, and now new onset shoulder and pain from his brachial plexus after a fall. He denies instabilityof the knee. He notes pain, hypersensitivity to touch, pain with bending, squating. He denies any F/C/NS. He denies any new injury to the right knee specifically. He presents today with XR to discussthis pain that continues.. Pain is not well controlled. Medication(s) being used: APAP, NSAID. No fevers, chills, nausea, vomiting, or symptoms of infection. Malik has been ambulating with no assistive device. ROS: Denies: fever, chills, night sweats, nausea, or vomiting BP 121/73 (BP Location (NBP): Right arm, Patient Position: Sitting, BP Cuff Sizes: Adult (25-34 cm)) Pulse 55 Ht 182.2 cm (5' 11.73) Comment: reported Wt 78 kg (172 lb) Comment: reported BMI23.50 kg/m?? Physical Exam: Well-appearing male in no acute distress. Alert and Oriented x 3 and answers all questions appropriately. The incision is well healed, with no signs of infection. Post Op Right Knee Exam: Knee ROM: Extension:5 Flexion: 115 Alignment: 0-4 degrees Neutral Stability: A/P Translation <5mm. Varus <5mm Valgus <5mm Extension La degrees or less Patella Tracking: Normal Pulses Palpable: Right PT: Yes Right DP:Yes Motor/Sensory: Distal Motor: Normal Distal Sensory: Normal Quadriceps Strength: 4 Pain out of proportion on exam, to light touch, patient withdraws his right knee from my hands to light touch over the anterior, medial, and lateral knee and joint lines. X-RAYS: Multiple radiographic views were obtained at my request and reviewed with the patient. X-rays show a well-placed prosthesis with no evidence of fracture, subsidence, loosening, or periprosthetic complication. Questionnaire Responses: [facility] Surgical Postop Visit 12/02/2020 PROMIS-10 General Health Very Good PROMIS-10 Quality of Life Good PROMIS-10 Physical Health Very Good PROMIS-10 Mental Health Very Good PROMIS-10 Social Activity Fair PROMIS-10 Everyday Activities Mostly PROMIS-10 Pain 6 PROMIS-10 Fatigue Moderate PROMIS-10 Social Roles Good PROMIS-10 Anxious or Depressed Sometimes PROMIS PHYSICAL HEALTH SCORE 44.9 PROMIS MENTAL HEALTH SCORE 43.5 KOOS JR Scores 44.91 Problems with surgical incision/wound after surgery No Problems with incision - Prescribed antibiotics - Caregiver after your surgical incision problem - Gone to ER since knee surgery No Where was ER located? - Date of ER visit - Reason for ER visit - Admitted to hospital since recent ortho surgery No Additional surgery on same body part No TKA Grade 6 Pain in other KNEE None Back pain at this moment Very severe Satisfaction with Treatment Somewhat satisfied Choose Same Treatment Again Definitely yes Orthopeadics [facility] Response 12/02/2020 KOOS JR Scores 44.91 Spine [facility] Response 12/02/2020 KOOS JR Scores 44.91 ASSESSMENT/PLAN: Mr. Machado is a 70 y.o. year old male status post right total knee revision. Postoperative course complicated by continued pain. Continue weightbearing as tolerated and working on range of motion. We discussed his knee at length today. We discussed his most recent films which are reassuring. This shows no acute fracture, dislocation, or displacement. We discussed that his implants were well fixed during his most recent revision we see no increasing lucency to demonstrate any new concern for a loose implant. We reviewed that he did have a recent fall, I did provide reassurance that there is no evidence of bony injury. We discussed his chronic and continued pain after his most recent revision surgery. We discussed obtaining labs: CBC, ESR, CRP to rule out infection. Discussed if negativewould likely recommend continued conservative management with either a geniculate nerve block or referral to physical therapy with a focus on desensitization therapy. We discussed if his labs are elevated with impingement on aspiration. Receptive to the above. He agrees with the above plan. I will give him a phone call once labs are obtained and reviewed. All questions were answered. Signed: ANDREE DURAN 12/02/2020 documented in this encounter Plan of Treatment Upcoming Encounters Date Type Department Care Team (Late st Contact Info) Description 08/18/2024 11:00 AM EDT Hospital Encounter [place] [address] Arrived 02/22/2025 1:30 PM EDT Appointment [place]ology [place] [address] 02/22/2025 2:30 PM EDT Office Visit Hematology and Oncology at [place] [phone] Ellis Childers MD [facility] DR HEMATOLOGY [place] [address] Felicita Landa APRN [facility] DR HEMATOLOGY [place] [address] documented as of this encounter Results * Sedimentation rate (12/02/2020 3:32 PM EST) Sedimentation Rate Automated 9 2 - 37 mm/hr [facility] Comment: Effective October 11, 2019 new capillary photometric technology has resulted in a change in reference ranges. It is recommended that each ESR result be reviewed with its own age appropriate reference range. Blood specimen (specimen) 12/02/2020 3:32 PM EST 12/02/2020 3:42 PM EST Narrative Resulting Agency Comment Spec In Lab Sukhjinder Jauregui MD HEMATOLOGY ORDERABL ES Performing Organization Address [facility] Co de Phone Number [facility] [place] [address] * CRP, acute inflammation (12/02/2020 3:32 PM EST) C-Reactive Protein 1.0 <=4.9 mg/L [facility] Blood specimen (specimen) 12/02/2020 3:32 PM EST 12/02/2020 3:42 PM EST Narrative Resulting Agency Comment Spec In Lab Sukhjinder Jauregui MD CHEMISTRY ORDERABLE S Performing Organization Address [facility] de Phone Number [facility] [place] [address] * XR Knee 1-2 Views Right (Generic) [...] ? Electronically signed by: Danie Collins MD, [facility] ([phone]), at 12/02/2020 1:54 PM Narrative 12/02/2020 1:54 [...] below. Electronically signed by: Danie Collins MD, [facility]([phone]), at 12/02/2020 1:54 PM Sukhjinder Jauregui MD IMG DX ORDERABLES documented in this encounter Visit Diagnoses Diagnosis S/P right total knee arthroplasty revision - poly swab and patellar revision Moschetti 11/15/2019 Chronic pain of right knee Debility Debility, unspecified S/P right total knee arthroplasty revision - poly swab and patellar revision Mos[place]tti 11/15/2019 Chronic pain of right knee Debility Debility, unspecified documented in this encounter Care Teams Chemical Production Machine Operator Relationship Specialty Start Date End Date Radha Mckeon MD [address] [place] [address] PCP - General 09/23/10 documented as of this encounter
--- OUTSIDE RECORDS SUMMARY | 2024-07-24 17:25 | XMS_ITS | Encounter Summary ---
[place] [address] Care Team Providers Care Deployment Manager Name Role Phone Radha Mckeon MD Primary Care Provider [phone] Encounter Details Date Type Department Care Team (Latest Contact Info) Description 12/02/2020 3:10 PM EST Laboratory Appointment Lab [address] [place] [address] S/P right total knee arthroplasty revision - [...] AM EDT Hospital Encounter [place] [address] Arrived 02/22/2025 1:30 PM EDT Appointment H[place]ology [place] [address] 02/22/2025 2:30 PM EDT Office Visit Hematology [place] [address] Ellis Childers MD [facility] DR HEMATOLOGY [place] [address] Felicita Landa APRN [facility] DR HEMATOLOGY [place] [address] documented as of this encounter Procedures Procedure Name Priority Date/Time Associated Diagnosis Comments HC C-REACTIVE PROTEIN STAT 12/02/2020 3:32 PM EST S/P right total knee arthroplasty revision - poly swab and patellar revision Moschetti 11/15/2019 Chronic pain of right knee Debility HEMOGRAM STAT 12/02/2020 3:32 PM EST S/P revision of total knee, right Chronic pain of right knee Debility DIFFERENTIAL, AUTOMATED STAT 12/02/2020 3:32 PM EST S/P revision of total knee, right Chronic pain of right knee Debility HC ESR-SEDIMENTATION RATE, BLOOD STAT 12/02/2020 3:32 PM EST S/P right total knee arthroplasty revision - poly swab and patellar revision Moschetti 11/15/2019 Chronic pain of right knee Debility HC CBC,PLT & AUTO DIFF STAT 12/02/2020 3:32 PM EST S/P right total knee arthroplasty revision - poly swab and patellar revision Moschetti 11/15/2019 Chronic pain of right knee Debility documented in this encounter Results * Differential, Automated (12/02/2020 3:32 PM EST) Neutrophil % 69.2 % [facility] Neutrophil Absolute 4.01 1.70 - 6.10 x10(3)/[facility] Lymph % 16.9 % [facility] Lymphocytes Abs 1.0 0.9 - 3.2 x10(3)/[facility] Monocyte % 11.6 % [facility] Monocyte Abs 0.7 0.3 - 0.9 x10(3)/[facility] Eos % 1.6 % [facility] Eosinophils Abs 0.1 0.0 - 0.4 x10(3)/[facility] Basophil % 0.5 % [facility] Baso Absolute 0.0 0.0 - 0.1 x10(3)/[facility] Immature Gran % 0.20 % [facility] Comment: Immature granulocytes(IG's)percentage and absolute count will include metamyelocytes, myelocytes, and promyelocytes. Blood smears from CBCs yielding IG's will be scanned manually for concordance. If this scan disagrees with the automated IG or if promyelocytes are noted, a manual differential will be performed. Immature Gran Absolute 0.01 0.00 - 0.04 x10(3)/[facility] Blood specimen (specimen) 12/02/2020 3:32 PM EST 12/02/2020 3:42 PM EST Narrative Resulting Agency Comment Spec In Lab Librado CANDELARIO HEMATOLOGY ORDERABLE S [facility] [place] [address] * (ABNORMAL) Hemogram (12/02/2020 3:32 PM EST) White Blood Cell 5.8 4.0 - 9.5 x10(3)/[facility] Red Blood Cell 4.95 4.58 - 5.54 x10(6)/[facility] Hemoglobin 15.4 13.7 - 16.5 gm/dL [facility] Hematocrit 45.7 40.5 - 48.5 % [facility] Mean Cell Volume 92.3 82.9 - 93.1 fL [facility] Mean Cell Hemoglobin 31.1 27.5 - 32.1 pg [facility] Mean Cell Hemoglobin Concentration 33.7 32.0 - 35.7 gm/dL [facility] Platelet 98(L) 145 - 357 x10(3)/[facility] RDW Standard Deviation 39.6 36.0 - 45.0 [facility] RDW coefficient of variation 11.9 11.4 - 13.8 % [facility] Mean Platelet Volume 11.4 7.6 - 12.9 [facility] NRBC% auto 0.0 % [facility] NRBC Absolute 0.000 0.000 - 0.000 x10(3)/[facility] Blood specimen (specimen) 12/02/2020 3:32 PM EST 12/02/2020 3:42 PM EST Narrative Resulting Agency Comment Spec In Lab Librado CANDELARIO HEMATOLOGY ORDERABLE S [facility] [place] [address] * CRP, acute inflammation (12/02/2020 3:32 PM EST) C-Reactive Protein 1.0 <=4.9 mg/L [facility] Blood specimen (specimen) 12/02/2020 3:32 PM EST 12/02/2020 3:42 PM EST Narrative Resulting Agency Comment Spec In Lab Sukhjinder Jauregui MD CHEMISTRY ORDERABLE S [facility] [place] [address] * Sedimentation rate (12/02/2020 3:32 PM EST) Sedimentation Rate Automated 9 2 - 37 mm/hr [facility] Comment: Effective October 11, 2019 new capillary photometric technology has resulted in a change in reference ranges. It is recommended that each ESR result be reviewed with its own age appropriate reference range. Blood specimen (specimen) 12/02/2020 3:32 PM EST 12/02/2020 3:42 PM EST Narrative Resulting Agency Comment Spec In Lab Sukhjinder Jauregui MD HEMATOLOGY ORDERABL ES [facility] [place] [address] documented in this encounter Visit Diagnoses Diagnosis S/P right total knee arthroplasty revision - poly swab and patellar revision Shania 11/15/2019 Chronic pain of right knee Debility Debility, unspecified documented in this encounter Care Teams Deployment Manager Relationship Specialty Start Date End Date Radha Mckeon MD [address] [place] [address] PCP - General 09/23/10 documented as of this encounter
--- OUTSIDE RECORDS SUMMARY | 2024-07-24 17:26 | XMS_ITS | Encounter Summary ---
[place] [address] Care Team Providers Care Instructional Technology Coach Name Role Phone Radha Mckeon MD Primary Care Provider [phone] Encounter Details Date Type Department Care Team (Late st Contact Info) Description 03/28/2020 Telephone [facility] [place] [address] Carrier, Alem V, CHAINSTITCH SEWING MACHINE OPERATOR Social History Tobacco Use Types Packs/Day Years [...] AM EDT Hospital Encounter Non-Invasive [place] [address] Arrived 02/22/2025 1:30 PM EDT Appointment Hematology [place] [address] 02/22/2025 2:30 PM EDT Office Visit Hematology [place] [address] Ellis Childers MD [facility] [place] [address] Felicita Landa APRN [facility] [address] [place] [address] documented as of this encounter Visit Diagnoses Not on filedocumented in this encounter Care Teams Instructional Technology Coach Relationship Specialty Start Date End Date Radha Mckeon MD [address] [place] [address] PCP - General 09/23/10 documented as of this encounter
--- OUTSIDE RECORDS SUMMARY | 2024-07-24 17:26 | XMS_ITS | Encounter Summary ---
Author Organization [facility] [place] [address] Care Team Providers Care Fractionating Still Operator Name Role Phone Radha Mckeon MD Primary Care Provider [phone] Reason for Referral * Physical Therapy (Routine) - Closed Specialty Diagnoses / Procedures Referred By Becki guillory Referred To Contact Physical Therapy Diagnoses S/P revision of total knee, right [address] PA [facility] [place] [address] [address] [place] [address] Referral ID Status Reason Start Date Expiration Date V isits Requested Visits Authorized [id number] Closed Evaluate and Treat 02/28/2020 02/27/2021 12 12 * Occupational Therapy (Routine) - Closed Specialty Diagnoses / Procedures Referred By Becki guillory Referred To Contact Occupational Therapy Diagnoses S/P revision of total knee, right [address] PA [facility] [place] [address] [address] [place] [address] Referral ID Status Reason Start Date Expiration Date V isits Requested Visits Authorized [id number] Closed Evaluate and Treat 02/28/2020 02/27/2021 12 12 Reason for Visit * Reason Onset Date Comments Occupational Therapy 02/23/2020 Encounter Details Date Type Department Care Team (Late st Contact Info) Description 02/23/2020 Telephone [place] [address] Layne Soares RMA Occupational Therapy Social History Tobacco Use Types Packs/Day [...] encounter Miscellaneous Notes * Addendum Note - Marla Garcia - 02/28/2020 11:35 AM EDTAddended by: MARLA GARCIA on: 02/28/2020 11:35 AM Modules accepted: Orders * Telephone Encounter - Marla Garcia - 02/28/2020 11:34 AM EDT PT order generated and faxed via [employer] to [facility]. * Telephone Encounter - Layne Soares RMA - 02/28/2020 9:50 AM EDT I just got a referral from [facility] - in her referral she stated that theydo not do OT for a Total knee and requests that we place a PT order. Her referral is in [facility] for review. If Avery agrees we will need to send a PT order. * Addendum Note - Marla Garcia - 02/28/2020 8:16 AM EDTAddended by: MARLA GARCIA on: 02/28/2020 08:16 AM Modules accepted: Orders * Telephone Encounter - Marla Garcia - 02/28/2020 8:14 AM EDT OT referral generated and faxed via [employer] to [facility]. * Telephone Encounter - Layne Soares RMA - 02/23/2020 4:15 PM EDT Triage Note Subjective: OT Referral SP Arthroplasty/Orthopaedic History: 1. Right TKA. Dr. Mi. 01/14/2010. 2. Right TKA Revision. Aseptic revision of the patella. Dr. Jauregui. 11/15/2019 Rajput questions/Assessment: Malik would like to OT and he has talked to make sure that Avery Rangeld to this plan. He would like to go to [facility] for OT. I let Malik know that I would send a message and if RASHEL Way agreed we would send the referral to [facility]. Malik agreed to this plan. documented in this encounter Plan of Treatment Upcoming Encounters Date Type Department Care Team (Late st Contact Info) Description 08/18/2024 11:00 AM EDT Hospital Encounter Non-Invasive [place] [address] Arrived 02/22/2025 1:30 PM EDT Appointment Hematology [place] [address] 02/22/2025 2:30 PM EDT Office Visit Hematology [place] [address] Ellis Childers MD [facility] DR [place] [address] Felicita Landa APRN [facility] [place] [address] Scheduled Referrals Name Type Priority Associated Diagnoses Orde r Schedule Referral to Occupational Therapy Outpatient Referral Routine S/P right total knee arthroplasty revision - poly swab and patellar revision Moschetti 11/15/2019 Ordered: 02/28/2020 Referral to Physical Therapy Outpatient Referral Routine S/P right total knee arthroplasty revision - poly swab and patellar revision [place] 11/15/2019 Ordered: 02/28/2020 documented as of this encounter Visit Diagnoses Diagnosis S/P right total knee arthroplasty revision - poly swab and patellar revision [place] 11/15/2019 documented in this encounter Care Teams Fractionating Still Operator Relationship Specialty Start Date End Date Radha Mckeon MD [address] [place] [address] PCP - General 09/23/10 documented as of this encounter
--- OUTSIDE RECORDS SUMMARY | 2024-07-24 17:26 | XMS_ITS | Encounter Summary ---
Author Organization [facility] [place] [address] Care Team Providers Care Day Camp Unit Leader Name Role Phone Radha Mckeon MD Primary Care Provider [phone] Reason for Referral * Consultation (Routine) - Specialty Diagnoses / Procedures Referred By Becki guillory Referred To Contact [facility] Diagnoses S/P revision of total knee, right Pain - Knee pain / XR 03/05/2020 & CT 04/26/19 & MRI 01/31/[address] [place] [facility] [place] [address] [facility] [place] [address] Referral ID Status Reason Start Date Expiration Date V isits Requested Visits Authorized [id number] Consult, Test & Treat 03/07/2020 03/07/2021 3 3 Reason for Visit * Reason Comments Follow-up REV TKA, DOS 11.15.19 Encounter Details Date Type Department Care Team (Late st Contact Info) Description 03/07/2020 3:20 PM EDT Office [place] [address] [place] [facility] [place] [address] S/P right total knee arthroplasty revision - poly swab and patellar revision Shania 11/15/2019 (Primary Dx) Social History Tobacco Use Types Packs/Day Years [...] Sign Reading Time Taken Comments Blood Pressure 163/74 03/07/2020 3:34 PM EDT Pulse 61 03/07/2020 3:34 PM EDT Temperature - - Respiratory Rate - - Oxygen Saturation - - Inhaled Oxygen Concentration - - Weight 69.9 kg (154 lb) 03/07/2020 3:34 PM EDT Height 182.9 cm (6') 03/07/2020 3:34 PM EDT Body Mass Index 20.89 03/07/2020 3:34 PM EDT documented in this encounter Progress Notes * [address] PA - 03/07/2020 3:20 PM EDT Arthroplasty/Orthopaedic History: 1. Right TKA. Dr. Mi. 01/14/2010. 2. Right TKA Revision. Aseptic revision of the patella. Dr. Jauregui. 11/15/2019 HPI: Malik Machado is a very pleasant 69 y.o. year-old male and is now 4 months post right total knee replacement The patient has been doing better than his prior appointment, in terms of range of motion, swelling, and pain, but he is still continuing.. Pain is not well controlled. Medication(s) being used: acetaminophen, ibuprofen (OTC), oxycodone.. No fevers, chills, nausea, vomiting, or symptoms of infection. Malik has been ambulating with no assistive device and working with PT. He is taking narcotic pain medicine, managed by PCP. ROS: Denies: fever, chills, night sweats, nausea, or vomiting BP 163/74 Pulse 61 Ht 182.9 cm (6') Wt 69.9 kg (154 lb) BMI 20.89 kg/m?? Physical Exam: Well-appearing male in no acute distress. Alert and Oriented x 3 and answers all questions appropriately. The incision is well healed, with no signs of infection. Post Op Right Knee Exam: Knee ROM: Extension:0 Flexion: 120 Alignment: 0-4 degrees Neutral Stability: A/P Translation <5mm. Varus <5mm Valgus <5mm Extension La degrees or less Patella Tracking: Normal Pulses Palpable: Right PT: Yes Right DP:Yes Motor/Sensory: Distal Motor: Normal Distal Sensory: Normal Quadriceps Strength: 5 X-RAYS: Multiple radiographic views were obtained at my request and reviewed with the patient. X-rays show a well-placed prosthesis with no evidence of fracture, subsidence, loosening, or periprosthetic complication. No evidence of interval change. Questionnaire Responses: [facility] Surgical Postop Visit 11/09/2019 PROMIS-10 General Health Very Good PROMIS-10 Quality of Life Good PROMIS-10 Physical Health Good PROMIS-10 Mental Health Very Good PROMIS-10 Social Activity Very Good PROMIS-10 Everyday Activities Moderately PROMIS-10 Pain 8 PROMIS-10 Fatigue Moderate PROMIS-10 Social Roles Good PROMIS-10 Anxious or Depressed Rarely PROMIS PHYSICAL HEALTH SCORE 37.4 PROMIS MENTAL HEALTH SCORE 50.8 KOOS JR Scores 39.63 Problems with surgical incision/wound after surgery - Problems with incision - Prescribed antibiotics - Caregiver after your surgical incision problem - Gone to ER since knee surgery - Where was ER located? - Date of ER visit - Reason for ER visit - Admitted to hospital since recent ortho surgery - Additional surgery on same body part - TKA Grade 8 Pain in other KNEE Severe Back pain at this moment Fairly severe Satisfaction with Treatment - Choose Same Treatment Again - Orthopeadics [facility] Response 11/09/2019 KOOS JR Scores 39.63 Spine [facility] Response 11/09/2019 KOOS JR Scores 39.63 ASSESSMENT/PLAN: Mr. Machado is a 69 y.o. year old male status post right total hip revision. Postoperative course complicated by continued pain. Continue weightbearing as tolerated and working on range of motion. We will see him back in 3 months for repeat examination. No X-rays will be needed at that time. Patient may return to normal activities as his pain and function allow. Patient had many mechanical questions about his knee replacement, the approach, the surgery completed. Reviewed the soft tissue approach, cutting through and releasing the quadriceps. Removing the loose patella, cutting out the osteolysis and debriding the patella. Reviewed re-surfacing the patella. Reviewed releasing of and completing a synevectomy and the prior scar. Reparing the approach and qu adriceps tendon. Recommend referral to pain clinic. Continue to wean off of narcotics due to chronic back and knee pain, managed by PCP. Recommend geniculate nerve block, and reassessment, if pain, repeat labs. Patient is receptive to the above. We discussed the appropriate precautions surrounding dental prophylaxis; according to the AAOS Appropriate Use Criteria we do not recommend antibiotic use prior to dental procedures for Malik. Recommended antibiotic: N/A If Malik has any changes in health status we recommend he contact our office prior to dental procedures for updated recommendations We also discussed maintaining good foot care and giving prompt attention to any source of infectionthroughout the body including foot ulcers and urinary tract infections. All questions were answered. Signed: ANDREE DURAN 03/07/2020 documented in this encounter Plan of Treatment Upcoming Encounters Date Type Department Care Team (Late st Contact Info) Description 08/18/2024 11:00 AM EDT Hospital Encounter Non-[place] [phone] Arrived 02/22/2025 1:30 PM EDT Appointment H[place]ology [place] [address] 02/22/2025 2:30 PM EDT Office Visit Hematology [place] [address] Ellis Childers MD [facility] [address] [place] [address] Felicita Landa APRN [facility] [place] [address] Scheduled Referrals Name Type Priority Associated Diagnoses Orde r Schedule Referral to [facility] (Internal only) Outpatient Referral Routine S/P right total knee arthroplasty revision - poly swab and patellar revision [place] 11/15/2019 Ordered: 03/07/2020 documented as of this encounter Visit Diagnoses Diagnosis S/P right total knee arthroplasty revision - poly swab and patellar revision [place]tti 11/15/2019- Primary documented in this encounter Care Teams Day Camp Unit Leader Relationship Specialty Start Date End Date Radha Mckeon MD [address] [place] [address] PCP - General 09/23/10 documented as of this encounter
--- OUTSIDE RECORDS SUMMARY | 2024-07-24 17:26 | XMS_ITS | Encounter Summary ---
Author Organization [facility] [place] [address] Care Team Providers Care Back Hoe Machine Operator Name Role Phone Radha Mckeon MD Primary Care Provider [phone] Reason for Visit * Reason Comments Medication Refill Encounter Details Date Type Department Care Team (Late st Contact Info) Description 02/23/2020 Refill Cardiology at [address] [address] Diogo Robb PA [facility] [place] [address] Medication Refill Social History Tobacco Use Types [...] AM EDT Hospital Encounter Non-[place] [address] Arrived 02/22/2025 1:30 PM EDT Appointment Hematology [place] [address] 02/22/2025 2:30 PM EDT Office Visit Hematology [place] [address] Ellis Childers MD [facility] DR HEMATOLOGY [place] [address] Felicita Landa APRN [facility] DR HEMATOLOGY [place] [address] documented as of this encounter Visit Diagnoses Diagnosis Paroxysmal atrial fibrillation Atrial fibrillation documented in this encounter Care Teams Back Hoe Machine Operator Relationship Specialty Start Date End Date Radha Mckeon MD [address] [place] [address] PCP - General 09/23/10 documented as of this encounter
--- OUTSIDE RECORDS SUMMARY | 2024-07-24 17:26 | XMS_ITS | Encounter Summary ---
[place] [address] Care Team Providers Care E/M Engineer Name Role Phone Radha Mckeon MD Primary Care Provider [phone] Encounter Details Date Type Department Care Team (Late st Contact Info) Description 12/25/2019 2:15 PM EST Laboratory Appointment Lab [address] [place] [phone] Social History Tobacco Use Types Packs/Day Years [...] AM EDT Hospital Encounter Non-[place] [address] Arrived 02/22/2025 1:30 PM EDT Appointment Hematology [place] [address] 02/22/2025 2:30 PM EDT Office Visit Hematology [place] [address] Ellis Childers MD [facility] DR HEMATOLOGY [place] [address] Felicita Landa APRN [facility] HEMATOLOGY [place] [address] documented as of this encounter Procedures Procedure Name Priority Date/Time Associated Diagnosis Comments PROTHROMBIN TIME Routine 12/25/2019 2:24 PM EST documented in this encounter Results * (ABNORMAL) Prothrombin Time (12/25/2019 2:24 PM EST) Prothrombin Time 65.5(H) 9.4 - 12.5 sec [facility] International Normalization Ratio 5.8(Criti tanika) [facility] Comment: Critical Result called by ?? [facility] CRITICAL Results read back by: ? Rufina Farrell RN at 2019-12-25 15:05:49 An INR <2.0 indicates adequate procoagulant activity for hemostasis in most patients without underlying bleeding disorders, though the INR may not adequately reflect hemostatic capacity in patients with liver disease and synthetic impairment. The recommended target INR range for therapeutic anticoagulation is 2.0 ? 3.0 for most applications, though lower and higher ranges may be appropriate depending on clinical circumstances. Blood specimen (specimen) Venous Draw / Unknown 12/25/2019 2:24 PM EST 12/25/2019 2:35 PM EST Narrative Resulting Agency Comment Spec In Lab Radha Mckeon MD HEMATOLOGY ORDERABLE S [facility] [place] [address] documented in this encounter Visit Diagnoses Not on filedocumented in this encounter Care Teams E/M Engineer Relationship Specialty Start Date End Date Radha Mckeon MD [address] [place] [address] PCP - General 09/23/10 documented as of this encounter
--- OUTSIDE RECORDS SUMMARY | 2024-07-24 17:26 | XMS_ITS | Encounter Summary ---
[place] [address] Care Team Providers Care Funds Transfer Clerk Name Role Phone Radha Mckeon MD Primary Care Provider [phone] Encounter Details Date Type Department Care Team (Late st Contact Info) Description 07/08/2020 Orders Only Cardiology at [address] [phone] Social History Tobacco Use Types Packs/Day Years [...] AM EDT Hospital Encounter Non-[place] [address] Arrived 02/22/2025 1:30 PM EDT Appointment Hematology [place] [address] 02/22/2025 2:30 PM EDT Office Visit Hematology [place] [address] Ellis Childers MD [facility] DR HEMATOLOGY [place] [address] Felicita Landa APRN [facility] HEMATOLOGY [place] [address] documented as of this encounter Procedures Procedure Name Priority Date/Time Associated Diagnosis Comments CARDIAC DEVICE CHECK - REMOTE Routine 07/08/2020 1:41 PM EDT documented in this encounter Results * Cardiac Device Check - Remote (07/08/2020 1:41 PM EDT) Date Time Interrogation Session [id number] [employer] Implantable Pulse Generator Loft Worker Pile Driving Med[employer] IDCO Implantable Pulse Generator Model [id number] [employer] Implantable Pulse Generator Serial Number [id number] ID[employer] Type Interrogation Session Remote [employer] Implantable Pulse Generator Type Implantable Diagnostic Monitor [employer] Implantable Pulse Generator Implant Date IDCO Anatomical Region Laterality Modality Other 07/08/2020 1:41 PM EDT Physician Cardiology IMPLANTABLE CARD IAC DEVICE documented in this encounter Visit Diagnoses Not on filedocumented in this encounter Care Teams Funds Transfer Clerk Relationship Specialty Start Date End Date Radha Mckeon MD [address] [place] [address] PCP - General 09/23/10 documented as of this encounter
--- OUTSIDE RECORDS SUMMARY | 2024-07-24 17:26 | XMS_ITS | Encounter Summary ---
Author Organization [facility] [place] [address] Care Team Providers Care Meter Repairer Name Role Phone Radha Mckeon MD Primary Care Provider Encounter Details Date Type Department Care Team (Late st Contact Info) Description 09/17/2020 Telephone Cardiology at [address] [address] Florecita Lopez, RN Social History Tobacco Use Types Packs/Day [...] Telephone Encounter - Florecita Lopez, RN - 09/19/2020 9:03 AM EST Called Mr Machado, and conveyed message from ANDREE Shelley,stating that Mr Machado's palpitations, transmitted from his loop recorder, were not SVT, and may have been premature beats. Gave Mr Machado the extension for the device nurse, [id number], with instructions that his recorder downloads his Heart Rhythm every 90- days, and if he sends any additional rhythm download to please call Marissa Hutchison RN and let the device team know, so they can identify his information. The patient indicates understanding of these issues and agrees with the plan. * Telephone Encounter - Florecita Lopez RN - 09/17/2020 3:21 PM EST Mr Machado called with questions about sending a device transmission from his loop recorder, today.He did send a transmission while he was on the phone, with clinical nurse. He states he had serious palpitations, last night, that he received Imitrex yesterday, and his pressure was 176, systolic. He states he felt the palpitations, and had sharp twinges, and lightheadedness, as well. He will be seeing a Physical Therapist for attacks of Vertigo beginning tomorrow, also. Forwarding to his provider. The patient indicates understanding of these issues and agrees with the plan. documented in this encounter Plan of Treatment Upcoming Encounters Date Type Department Care Team (Late st Contact Info) Description 08/18/2024 11:00 AM EDT Hospital Encounter Non-[place] [address] Arrived 02/22/2025 1:30 PM EDT Appointment Hematology and Oncology at [place] [phone] 02/22/2025 2:30 PM EDT Office Visit Hematology and Oncology at [address] Ellis Childers MD [facility] DR [place]OLOG[place] [address] Felicita Landa APRN [facility] [place]OLOG[place] [address] documented as of this encounter Visit Diagnoses Not on filedocumented in this encounter Care Teams Meter Repairer Relationship Specialty Start Date End Date Radha Mckeon MD [address] [place] [address] PCP - General 09/23/10 documented as of this encounter
--- OUTSIDE RECORDS SUMMARY | 2024-07-24 17:26 | XMS_ITS | Encounter Summary ---
Author Organization [facility] [place] [address] Care Team Providers Care Laundry Worker Name Role Phone Radha Mckeon MD Primary Care Provider [phone] Reason for Visit * Reason Onset Date Comments Questions 06/06/2020 Encounter Details Date Type Department Care Team (Late st Contact Info) Description 06/06/2020 Telephone Cardiology at [address] [phone] Alla Aguiar RN Questions Social History Tobacco Use Types Packs/Day [...] encounter Miscellaneous Notes * Telephone Encounter - Alla Aguiar RN - 06/06/2020 4:40 PM EDT TC from patient who has been experiencing sharp pain in the center of his chest for 2-3 days. Pt has not experienced any strenuous activity, no known trauma to site. Pt has a hx of a loop recorder that was implanted >3 years ago. Area of the ILR no redness, swelling. Pt also exhibiting some chest heaviness and SOB can hear pt with some dyspnea, which pt states is not a normal for him. Asked pt to send a remote download, unable to do so d/t battery in monitor drained. Pt VS 180/105 HR 58. Asked pt for permission to speak with which he allowed. states that pt does appear to be slightly pale, not clammy or diaphoretic. Asked in her honest opinion how he looked she replied [place] really tired. He doesn't look good. Pt rechecked B/P 170/95. Recommended pt be evaluated at the ED d/t sx. Pt asked if he could eat first, advised pt not to eat in the event any testing neededto be done while in the ED. Pt voiced understanding. Pt to drive [phone] give the ED an update on the patients arrival. Spoke with nurse Florecita Cardoso. Will relay information to Dr. Byrd for his review. documented in this encounter Plan of Treatment Upcoming Encounters Date Type Department Care Team (Late st Contact Info) Description 08/18/2024 11:00 AM EDT Hospital Encounter Non-Invasive [place] [phone] Arrived 02/22/2025 1:30 PM EDT Appointment Hematology [place] [address] 02/22/2025 2:30 PM EDT Office Visit Hematology [place] [address] Ellis Childers MD [facility] [place] [address] Felicita Landa APRN [facility] HEMATOLOGY [place] [address] documented as of this encounter Visit Diagnoses Not on filedocumented in this encounter Care Teams Laundry Worker Relationship Specialty Start Date End Date Radha Mckeon MD [address] [place] [address] PCP - General 09/23/10 documented as of this encounter
--- OUTSIDE RECORDS SUMMARY | 2024-07-24 17:26 | XMS_ITS | Encounter Summary ---
Author Organization [facility] [place] [address] Care Team Providers Care Dehydration Plant Operator Name Role Phone Radha Mckeon MD Primary Care Provider [phone] Reason for Visit * Diagnostic Test (Routine) - Closed Specialty Diagnoses / Procedures Referred By Becki guillory Referred To Contact Radiology Diagnoses Paroxysmal atrial fibrillation Chest pain, unspecified type Procedures NM Pharmacologic Stress and Rest Myocardial Perfusion Diogo Robb, ANDREE [facility] [place] [address] [place] [address] Referral ID Status Reason Start Date Expiration Date V isits Requested Visits Authorized [id number] Closed Specialty Service Requested 06/25/2020 12/26/2021 1 1 Encounter Details Date Type Department Care Team (Latest Contact Info) Description 07/10/2020 10:27 AM EDT Hospital Encounter [place] [address] Omar Corcoran MD [facility] [place] [address] Discharge Disposition: Home Social History Tobacco Use [...] (Tylenol) 500 mg tablet as needed. 01/16/2017 polyethylene glycoL (Miralax) 17 gram Powder in [...] QD 04/23/2020 fluticasone propionate (FLONASE) 50 mcg/actuation [place], Suspension INSTILL 1SPRAY IN EACH NOSTRIL TWICE [...] tablet Take 10 mg by mouth nightly. cephALEXin (Keflex) 500 mg Capsule Take 500 mg by mouth 4 times daily. 10/22/2020 gabapentin (Neurontin) 300 mg CapsuleIndications:titr ating up to 900 mg 600 mg 3 times daily. Indications: titrating up to 900 mg 04/24/2020 12/02/2020 Xarelto 20 mg Tablet TK 1 T [...] pain (7-10) take 20 mg). 11/17/2019 01/05/2022 multivitamin with minerals (THERA-M) 9 mg iron-400 mcg Tablet Take 1 tablet by mouth daily. 11/18/2019 10/22/2020 omeprazole (PRILOSEC) 20 mg Capsule, Delayed Release(E.C.) Take 20 mg by mouth 2 times daily. 10/07/2017 08/03/2023 valACYclovir (VALTREX) 500 mg Tablet Take 500 mg by mouth nightly. 01/04/2016 12/02/2020 fish oil-omega-3 fatty acids with vitamin E 1,000 mg Capsule Take 2,000 mg by mouth daily. 05/20/2022 documented as of this encounter Plan of Treatment Upcoming Encounters Date Type Department Care Team (Late st Contact Info) Description 08/18/2024 11:00 AM EDT Hospital Encounter Non-Invasive [place] [address] Arrived 02/22/2025 1:30 PM EDT Appointment Hematology [place] [address] 02/22/2025 2:30 PM EDT Office Visit Hematology [place] [address] Ellis Childers MD [facility] [place] [address] Felicita Landa APRN [facility] [place] [address] documented as of this encounter Procedures Procedure Name Priority Date/Time Associated Diagnosis Comments NM PHARMACOLOGIC STRESS AND REST MYOCARDIAL PERFUSION Routine 07/10/2020 12:17 PM EDT Paroxysmal atrial fibrillation Chest pain, unspecified type documented in this encounter Results * NM Pharmacologic Stress CT Component (07/10/2020 1:18 PM EDT) Anatomical Region Laterality Modality Nuclear Medicine Impressions 07/10/2020 2:29 PM EDT No ischemia or scar. ??Left ventricular function is normal. I have personally reviewed the image(s) and the resident's interpretation and agree with the findings, Henry Vance at 07/10/2020 2:29 PM Thank you for letting us participate in the care of this patient. For questions regarding this report, please contact the number below. ? Narrative 07/10/2020 2:29 PM EDT EXAMINATION: NM PHARMACOLOGIC STRESS AND REST MYOCARDIAL PERFUSION, NM PHARMACOLOGIC STRESS CT COMPONENT CLINICAL HISTORY: atypical chest pain TECHNIQUE: During rest, 8 mCi of technetium-99m sestamibi was administered intravenously. Approximately 20 minutes later, SPECT images of the heart were obtained with reconstruction in the short, vertical long and horizontal long axis. The patient then received regadenoson intravenously at a dose of 0.4 mg. 20 seconds later, 29.1 mCi of technetium-99m sestamibi was administered intravenously. Images of the heart were then again obtained with SPECT reconstruction. A low-dose CT scan was acquired for the purpose of attenuation correction COMPARISON: CTA chest 11/28/2012 FINDINGS: No fixed or reversible perfusion defects are present. Functional analysis: Myocardial function: There is normal wall thickening and wall motion. Left ventricular ejection fraction: 60 % (normal greater than than 50%). INCIDENTAL CT FINDINGS: Coronary and aortic calcifications Procedure Note Henry Vance MD - 07/10/2020 EXAMINATION: NM PHARMACOLOGIC STRESS AND REST MYOCARDIAL PERFUSION, NM PHARMACOLOGIC STRESS CT COMPONENT CLINICAL HISTORY: atypical chest pain TECHNIQUE: During rest, 8 mCi of technetium-99m sestamibi wasadministered intravenously. Approximately 20 minutes later, SPECT images of the heartwere obtained with reconstruction in the short, vertical long and horizontallong axis. The patient then received regadenoson intravenously at a dose of 0.4 mg.20 seconds later, 29.1 mCi of technetium-99m sestamibi was administered intravenously. Images of the heart were then again obtained with SPECT reconstruction. A low-dose CT scan was acquired for the purpose of attenuationcorrection COMPARISON: CTA chest 11/28/2012 FINDINGS: No fixed or reversible perfusion defects are present. Functional analysis: Myocardial function: There is normal wall thickening and wall motion. Left ventricular ejection fraction: 60 % (normal greater than than 50%). INCIDENTAL CT FINDINGS: Coronary and aortic calcifications IMPRESSION No ischemia or scar. Left ventricular function is normal. I have personally reviewed the image(s) and the resident's interpretationand agree with the findings, Henry Vance at 07/10/2020 2:29 PM Thank you for letting us participate in the care of this patient. Forquestions regarding this report, please contact the number below. Omar Corcoran MD [facility] [place] ORDERABLES * NM Pharmacologic Stress and Rest Myocardial Perfusion (07/10/2020 12:17 PM EDT) Anatomical Region Laterality Modality Nuclear Medicine Impressions 07/10/2020 2:29 PM EDT No ischemia or scar. ??Left ventricular function is normal. I have personally reviewed the image(s) and the resident's interpretation and agree with the findings, Henry Vance at 07/10/2020 2:29 PM Thank you for letting us participate in the care of this patient. For questions regarding this report, please contact the number below. ? Narrative 07/10/2020 2:29 PM EDT EXAMINATION: NM PHARMACOLOGIC STRESS AND REST MYOCARDIAL PERFUSION, NM PHARMACOLOGIC STRESS CT COMPONENT CLINICAL HISTORY: atypical chest pain TECHNIQUE: During rest, 8 mCi of technetium-99m sestamibi was administered intravenously. Approximately 20 minutes later, SPECT images of the heart were obtained with reconstruction in the short, vertical long and horizontal long axis. The patient then received regadenoson intravenously at a dose of 0.4 mg. 20 seconds later, 29.1 mCi of technetium-99m sestamibi was administered intravenously. Images of the heart were then again obtained with SPECT reconstruction. A low-dose CT scan was acquired for the purpose of attenuation correction COMPARISON: CTA chest 11/28/2012 FINDINGS: No fixed or reversible perfusion defects are present. Functional analysis: Myocardial function: There is normal wall thickening and wall motion. Left ventricular ejection fraction: 60 % (normal greater than than 50%). INCIDENTAL CT FINDINGS: Coronary and aortic calcifications Procedure Note Henry Vance MD - 07/10/2020 EXAMINATION: NM PHARMACOLOGIC STRESS AND REST MYOCARDIAL PERFUSION, NM PHARMACOLOGIC STRESS CT COMPONENT CLINICAL HISTORY: atypical chest pain TECHNIQUE: During rest, 8 mCi of technetium-99m sestamibi wasadministered intravenously. Approximately 20 minutes later, SPECT images of the heartwere obtained with reconstruction in the short, vertical long and horizontallong axis. The patient then received regadenoson intravenously at a dose of 0.4 mg.20 seconds later, 29.1 mCi of technetium-99m sestamibi was administered intravenously. Images of the heart were then again obtained with SPECT reconstruction. A low-dose CT scan was acquired for the purpose of attenuationcorrection COMPARISON: CTA chest 11/28/2012 FINDINGS: No fixed or reversible perfusion defects are present. Functional analysis: Myocardial function: There is normal wall thickening and wall motion. Left ventricular ejection fraction: 60 % (normal greater than than 50%). INCIDENTAL CT FINDINGS: Coronary and aortic calcifications IMPRESSION No ischemia or scar. Left ventricular function is normal. I have personally reviewed the image(s) and the resident's interpretationand agree with the findings, Henry Vance at 07/10/2020 2:29 PM Thank you for letting us participate in the care of this patient. Forquestions regarding this report, please contact the number below. Omar Corcoran MD [facility] NM ORDERABLES documented in this encounter Visit Diagnoses Not on filedocumented in this encounter Care Teams Dehydration Plant Operator Relationship Specialty Start Date End Date Radha Mckeon MD [address] [place] [address] PCP - General 09/23/10 documented as of this encounter
--- OUTSIDE RECORDS SUMMARY | 2024-07-24 17:26 | XMS_ITS | Encounter Summary ---
Author Organization [facility] [place] [address] Care Team Providers Care Public Health Engineer Name Role Phone Radha Mckeon MD Primary Care Provider [phone] Encounter Details Date Type Department Care Team (Late st Contact Info) Description 10/08/2020 [place] [id number] Halima Mckeon PA [facility] [place] [address] Social History Tobacco Use Types Packs/Day Years [...] as of this encounter Progress Notes * Halima Mckeon PA - 10/08/2020 8:31 AM EST Cardiac Electrophysiology Implantable Loop Recorder (ILR) Remote Monitoring Interpretation Transmission Date: 10/07/20 Device Type: Implantable Loop Recorder Generator pelt grader: [employer] Implanted: 04/04/18 Indication: AFib Battery Status: OK Events/Arrhythmias noted since last reset Symptom: 0 Tachy (> 150 BPM x 16 beats): 0 Bradycardia (<30 BPM x 4 beats):0 Asystole (<20 BPM): 0 SVT/AT/other : 0 Atrial Fibrillation / Flutter: 0 Physiologic Monitoring: Avg V rates- minimal change from 60s Pt activity ~2hrs/day Presenting EGM-VS at 60bpm Impression: Normally functioning device Halima Mckeon PA-C Cardiac Electrophysiology documented in this encounter Plan of Treatment Upcoming Encounters Date Type Department Care Team (Late st Contact Info) Description 08/18/2024 11:00 AM EDT Hospital Encounter Non-[place] [address] Arrived 02/22/2025 1:30 PM EDT Appointment Hematology and Oncology at [place] [address] 02/22/2025 2:30 PM EDT Office Visit Hematology and Oncology at [place] [address] Ellis Childers MD [facility] [address] HEMATOLOGY [place] [address] Felicita Landa APRN [facility] HEMATOLOGY [place] [address] documented as of this encounter Visit Diagnoses Not on filedocumented in this encounter Care Teams Public Health Engineer Relationship Specialty Start Date End Date Radha Mckeon MD [address] [place] [address] PCP - General 09/23/10 documented as of this encounter
--- OUTSIDE RECORDS SUMMARY | 2024-07-24 17:26 | XMS_ITS | Encounter Summary ---
Author Organization [facility] [place] [address] Care Team Providers Care Hat Lining Paster Name Role Phone Radha Mckeon MD Primary Care Provider [phone] Encounter Details Date Type Department Care Team (Late st Contact Info) Description 10/11/2020 Ancillary Procedure Radiology Library at [facility] [place] [phone] Sera White [facility] [place] [address] Social History Tobacco Use Types Packs/Day Years [...] AM EDT Hospital Encounter Non-[place]vasive [place] [address] Arrived 02/22/2025 1:30 PM EDT Appointment Hematology [place] [address] 02/22/2025 2:30 PM EDT Office Visit Hematology [place] [address] Ellis Childers MD [facility] [address] [place] [address] Felicita Landa APRN [facility] [address] [place] [address] documented as of this encounter Procedures Procedure Name Priority Date/Time Associated Diagnosis Comments FILM LIBRARY STORAGE ONLY DX SPINE Routine 10/11/2020 12:00 AM EST documented in this encounter Results * Film Library- Storage Only DX Spine (10/11/2020 12:00 AM EST) Narrative [facility] - 10/16/2020 6:25 PM EST This exam is auto-finalizing. It's purpose is for storage only. Sera White APRN [employer] FILM LIBRARY ORD ERABLES [place], [place] documented in this encounter Visit Diagnoses Not on filedocumented in this encounter Care Teams Hat Lining Paster Relationship Specialty Start Date End Date Radha Mckeon MD [address] [place] [address] PCP - General 09/23/10 documented as of this encounter
--- OUTSIDE RECORDS SUMMARY | 2024-07-24 17:26 | XMS_ITS | Encounter Summary ---
Author Organization [facility] [place] [address] Care Team Providers Care Cloth Weaver Name Role Phone Radha Mckeon MD Primary Care Provider [phone] Reason for Visit * Reason Comments Follow Up Surgery R TKA DOS 1.15.20 Encounter Details Date Type Department Care Team (Late st Contact Info) Description 12/25/2019 1:00 PM EST Office [place] [address] Sukhjinder Jaurgeui MD [facility] [place] [address] S/P right total knee arthroplasty revision - poly swab and patellar revision Shania 11/15/2019 Social History Tobacco Use Types Packs/Day Years [...] Sign Reading Time Taken Comments Blood Pressure 133/69 12/25/2019 12:42 PM EST Pulse 61 12/25/2019 12:42 PM EST Temperature 36.7 ??C (98 ??F) 12/25/2019 12:42 PM EST Respiratory Rate - - Oxygen Saturation - - Inhaled Oxygen Concentration - - Weight 69.9 kg (154 lb) 12/25/2019 12:42 PM EST Height 182.9 cm (6') 12/25/2019 12:42 PM EST Body Mass Index 20.89 12/25/2019 12:42 PM EST documented in this encounter Progress Notes * Sukhjinder Jauregui MD - 12/25/2019 1:00 PM EST Images from the original note were not included. Department of Orthopaedics Division of Adult Joint Reconstructive Surgery December 25, 2019 I had the pleasure of evaluating Malik Machado in clinic in conjunction with one of my associate providers. In brief Mr. Machado is a 69 y.o. year old male seen status post revision right total knee replacement for a loose patella component. We also upsized his poly-. In general he feels like he is doing better. He feels like the knee is more stable. He still continues to have pain and swelling and I reiterated that it can take a year to 18 months to fully recover after knee replacement. In general though he is doing reasonably well. He needs to continue with physical therapy and continue to work on his range of motion. All questions were answered. Sukhjinder Jauregui MD, MS Chief, Division of Adult Reconstructive Content ArchitectGolf Course Manager of Orthopaedics Department of Orthopaedics [facility] [address] [email or web address] * [address] PA - 12/25/2019 1:00 PM EST Arthroplasty/Orthopaedic History: 1. Right TKA. Dr. Mi. 01/14/2010. 2. Right TKA Revision. Aseptic revision of the patella. Dr. Jauregui. 11/15/2019 HPI: Mailk Machado is a very pleasant 69 y.o. year-old male and is now 5 weeks post right total knee revision The patient has been doing well. Pain is controlled with current analgesics. Medication(s) being used: oxycodone. No fevers, chills, nausea, vomiting, or symptoms of infection. Malik has been ambulating with no assistive device.He notes his knee feels more stable. He denies catching and locking. Denies wound issues. Denies F/C/NS. Still having a lot of pain between his back and his knee. ROS: Denies: fever, chills, night sweats, nausea, or vomiting BP 133/69 Pulse 61 Temp 36.7 ??C (98 ??F) Ht 182.9 cm (6') Wt 69.9 kg (154 lb) BMI 20.89 kg/m?? Physical Exam: Well-appearing male in no acute distress. Alert and Oriented x 3 and answers all questions appropriately. The incision is well healed, with no signs of infection. Post Op Right Knee Exam: Knee ROM: Extension:0 Flexion: 100 Alignment: 0-4 degrees Neutral Stability: A/P Translation [...] subsidence, loosening, or periprosthetic complication. Questionnaire Responses: [facility] Surgical Postop Visit 11/09/2019 PROMIS-10 [...] Same Treatment Again - [facility] Response 11/09/2019 KOOS JR Scores 39.63 Spine [facility] Response 11/09/2019 KOOS JR Scores 39.63 ASSESSMENT/PLAN: Mr. Machado is a 69 y.o. year old male status post right total knee revision. Doing well postoperatively. Continue weightbearing as tolerated and working on range of motion. We will see him back in 6 - 8 weeks for repeat examination. X-rays will be needed at that time. Patient may return to normal activities as his pain and function allow. Reviewed his XR, reassurance provided. Discussed his surgical procedure, and his patella. Debrided the osteolysis, and re-surfaced the patella and poly. Reviewed bony healing, recovery around 4-8 weeks. Discussed synevectomy, and debriding scar tissue circumfrentially about the knee, dislocated theknee to complete the femoral tibial poly exchange. Discussed 3-6 months for the soft tissue healing. Reviewed recovery can take 12-18 months after a knee revision. We discussed the appropriate precautions surrounding dental [...] All questions were answered. Signed: ANDREE DURAN 12/25/2019 documented in this encounter Plan of Treatment Upcoming Encounters Date Type Department Care Team (Late st Contact Info) Description 08/18/2024 11:00 AM EDT Hospital Encounter Non[place] [address] Arrived 02/22/2025 1:30 PM EDT Appointment Hematology [place] [address] 02/22/2025 2:30 PM EDT Office Visit Hematology [place] [address] Ellis Childers MD [facility] [place] [address] Felicita Landa APRN [facility] [place] [address] documented as of this encounter Visit Diagnoses Diagnosis S/P right total knee arthroplasty revision - poly swab and patellar revision [place] 11/15/2019 documented in this encounter Care Teams Cloth Weaver Relationship Specialty Start Date End Date Radha Mckeon MD [address] [place] [address] PCP - General 09/23/10 documented as of this encounter
--- OUTSIDE RECORDS SUMMARY | 2024-07-24 17:26 | XMS_ITS | Encounter Summary ---
Author Organization [facility] [place] [address] Care Team Providers Care Etl Application Developer Name Role Phone Radha Mckeon MD Primary Care Provider [phone] Reason for Visit * Diagnostic Test (Routine) - Closed Specialty Diagnoses / Procedures Referred By Becki guillory Referred To Contact Radiology Diagnoses Paroxysmal atrial fibrillation Chest pain, unspecified type Procedures NM Pharmacologic Stress and Rest Myocardial Perfusion Diogo Robb, ANDREE [facility] [place] [address] [place] [address] Referral ID Status Reason Start Date Expiration Date V isits Requested Visits Authorized [id number] Closed Specialty Service Requested 06/25/2020 12/26/2021 1 1 Encounter Details Date Type Department Care Team (Latest Contact Info) Description 07/10/2020 10:27 AM EDT Hospital Encounter [place] [address] Omar Corcoran MD [facility] [place] [address] Discharge Disposition: Home Social History [...] QD 04/23/2020 fluticasone propionate (FLONASE) 50 mcg/actuation [place], Suspension INSTILL 1SPRAY IN EACH NOSTRIL TWICE [...] AM EDT Hospital Encounter Non-Invasive [place] [address] Arrived 02/22/2025 1:30 PM EDT Appointment H[place]ology [place] [address] 02/22/2025 2:30 PM EDT Office Visit [place] [address] Ellis Childers MD [facility] HEMATOLOGY [place] [address] Felicita Landa APRN [facility] [place]ATOLOG[place] [address] documented as of this encounter Procedures Procedure Name Priority Date/Time Associated Diagnosis Comments NM PHARMACOLOGIC STRESS AND REST MYOCARDIAL PERFUSION Routine 07/10/2020 12:17 PM EDT Paroxysmal atrial fibrillation Chest pain, unspecified type documented in this encounter Visit Diagnoses Not on filedocumented in this encounter Administered Medications Inactive Administered Medications - up to 3 most recent administrations Medication Order MAR Action Action Date Dose Rate Site regadenoson (LEXISCAN) injection 0.4 mg 0.4 mg, Intravenous, ONCE, 1 dose, On Wed07/10/20 at 1100, Radiology Contrast, Routine Given 07/10/2020 11:00 AM EDT 0.4 mg technetium (Tc-99m) sestamibi injection 29.1 mCi 29.1 mCi, Intravenous, ONCE PRN, 1 dose, Starting on Wed07/10/20 at 1217, Until Wed07/10/20 at 1218, Per Protocol, Routine Given 07/10/2020 12:18 PM EDT 29.1 mCi Right Arm documented in this encounter Care Teams Etl Application Developer Relationship Specialty Start Date End Date Radha Mckeon MD [address] [place] [address] PCP - General 09/23/10 documented as of this encounter
--- OUTSIDE RECORDS SUMMARY | 2024-07-24 17:26 | XMS_ITS | Encounter Summary ---
Author Organization [facility] Address [facility] [place] [address] Care Team Providers Care Home Housekeeper Name Role Phone Radha Mckeon MD Primary Care Provider [phone] Encounter Details Date Type Department Care Team (Latest Contact Info) Description 03/07/2020 2:27 PM EDT - 03/07/2020 11:59 PM EDT Hospital Encounter XRay at [address] [place] [address] Sukhjinder Jauregui MD [facility] [place] [address] H/O total knee replacement, right Discharge Disposition: Home [...] 2 tablets by mouth as needed. 11/17/2019 fluticasone propionate (FLONASE) 50 mcg/actuation [place], Suspension INSTILL 1SPRAY IN EACH NOSTRIL TWICE [...] tablet Take 10 mg by mouth nightly. warfarin (Coumadin) 1 mg TabletIndications:ALTE RNATING WITH 2 MG Indications: ALTERNATING WITH 2 MG 02/26/2020 04/22/2020 metoprolol succinate XL (Toprol-XL) 100 mg Tablet Sustained Release 24 hrIndications:Paroxysm al atrial fibrillation Take 1.5 tablets by mouth daily. 135 tablet 3 02/23/2020 02/03/2021 acetaminophen (TYLENOL) 500 mg Tablet Take 2 tablets by mouth every 6 hours. 11/17/2019 05/15/2021 oxyCODONE (ROXICODONE) 10 mg Tablet Take 1-2 tablets by mouth every 3 hours as needed (mild pain (1-3) take 10 mg, moderate pain (4-6) take 15 mg, severe pain (7-10) take 20 mg). 11/17/2019 01/05/2022 lidocaine (LIDODERM) 5 % Adhesive Patch, Medicated Change 3 patches on the skin daily. Apply 1 patch onto the skin daily. (leave on for 12 hours and remove for 12 hours) 11/17/2019 06/25/2020 methocarbamol (ROBAXIN) 750 mg Tablet Take 1 tablet by mouth every 8 hours as needed (muscle spasms). 11/17/2019 06/25/2020 multivitamin with minerals (THERA-M) 9 mg iron-400 mcg Tablet Take 1 tablet by mouth daily. 11/18/2019 10/22/2020 polyethylene glycol (MIRALAX) 17 gram Powder in Packet Take 17 g by mouth 2 times daily. 11/17/2019 06/25/2020 senna-docusate (PERICOLACE) 8.6-50 mg Tablet Take 2 tablets by mouth 2 times daily. 11/17/2019 06/25/2020 omeprazole (PRILOSEC) 20 mg Capsule, Delayed Release(E.C.) [...] AM EDT Hospital Encounter Non-Invasive [place] [address] Arrived 02/22/2025 1:30 PM EDT Appointment Hematology [place] [address] 02/22/2025 2:30 PM EDT Office Visit Hematology [place] [address] Ellis Childers MD [facility] [address] [place] [address] Felicita Landa APRN [facility] [place] [address] documented as of this encounter Procedures Procedure Name Priority Date/Time Associated Diagnosis Comments XR KNEE AP & LAT RIGHT Routine 03/07/2020 2:49 PM EDT H/O total knee replacement, right documented in this encounter Results * XR Knee 1-2 Views Right (Generic) (03/07/2020 2:49 PM EDT) Anatomical Region Laterality Modality Knee Right Digital Radiogra phy Impressions 03/07/2020 2:51 PM EDT Total knee arthroplasty without radiographic evidence of hardware complication. Thank you for letting us participate in the care of this patient. For questions regarding this report, please contact the number below. ? Narrative 03/07/2020 2:51 PM EDT EXAMINATION: XR KNEE 1-2 VIEWS RIGHT (GENERIC) CLINICAL HISTORY: H/O total knee replacement, right TECHNIQUE: 2 views RIGHT knee COMPARISON: 12/25/19 FINDINGS: Status post total knee arthroplasty. No periprosthetic lucency or fracture. No joint effusion. Anterior soft tissue swelling is unchanged. Alignment is intact. Procedure Note Danie Collins MD - 03/07/2020 EXAMINATION: XR KNEE 1-2 VIEWS RIGHT (GENERIC) CLINICAL HISTORY: H/O total knee replacement, right TECHNIQUE: 2 views RIGHT knee COMPARISON: 12/25/19 FINDINGS: Status post total knee arthroplasty. No periprosthetic lucency orfracture. No joint effusion. Anterior soft tissue swelling is unchanged. Alignment isintact. IMPRESSION Total knee arthroplasty without radiographic evidence of hardwarecomplication. Thank you for letting us participate in the care of this patient. Forquestions regarding this report, please contact the number below. Electronically signed by: Danie Collins [facility] [place] ([phone]),at 03/07/2020 2:51 PM Sukhjinder Jauregui MD IMG DX ORDERABLES documented in this encounter Visit Diagnoses Diagnosis H/O total knee replacement, right documented in this encounter Care Teams Home Housekeeper Relationship Specialty Start Date End Date Radha Mckeon MD [address] [place] [address] PCP - General 09/23/10 documented as of this encounter
--- OUTSIDE RECORDS SUMMARY | 2024-07-24 17:26 | XMS_ITS | Encounter Summary ---
[place] [address] Care Team Providers Care Medical Director Of Hospice Name Role Phone Radha Mckeon MD Primary Care Provider [phone] Reason for Referral * Diagnostic Test (Routine) - Closed Specialty Diagnoses / Procedures Referred By Contac t Referred To Contact Radiology Diagnoses Paroxysmal atrial fibrillation Chest pain, unspecified type Procedures NM Pharmacologic Stress CT Component Diogo Robb PA [facility] [address] [place] [address] Referral ID Status Reason Start Date Expiration Date V isits Requested Visits Authorized [id number] Closed Specialty Service Requested 06/25/2020 12/26/2021 1 1 Reason for Visit * Diagnostic Test (Routine) - Closed Specialty Diagnoses / Procedures Referred By Contac t Referred To Contact Radiology Diagnoses Paroxysmal atrial fibrillation Chest pain, unspecified type Procedures NM Pharmacologic Stress CT Component Diogo Robb PA [facility] [place] [address] [facility] [place] [address] Referral ID Status Reason Start Date Expiration Date V isits Requested Visits Authorized [id number] Closed Specialty Service Requested 06/25/2020 12/26/2021 1 1 Encounter Details Date Type Department Care Team (Latest Contact Info) Description 07/10/2020 10:28 AM EDT - 07/10/2020 11:59 PM EDT Hospital Encounter [place] [address] Omra Corcoran MD [facility] [place] [address] Paroxysmal atrial fibrillation; Chest pain, unspecified type Discharge Disposition: Home Social History [...] AM EDT Hospital Encounter Non-[place] [phone] Arrived 02/22/2025 1:30 PM EDT Appointment Hematology [place] [phone] 02/22/2025 2:30 PM EDT Office Visit Hematology [place] [phone] Ellis Childers MD [facility] [address] [place] [address] Felicita Landa APRN [facility] [address] [place] [address] documented as of this encounter Procedures Procedure Name Priority Date/Time Associated Diagnosis Comments NM PHARMACOLOGIC STRESS CT COMPONENT Routine 07/10/2020 1:18 PM EDT Paroxysmal atrial fibrillation Chest pain, [...] contact the number below. Omar Corcoran MD IM NM ORDERABLES documented in this encounter Visit Diagnoses Diagnosis Paroxysmal atrial fibrillation Atrial fibrillation Chest pain, unspecified type documented in this encounter Care Teams Medical Director Of Hospice Relationship Specialty Start Date End Date Radha Mckeon MD [address] [place] [address] PCP - General 09/23/10 documented as of this encounter
--- OUTSIDE RECORDS SUMMARY | 2024-07-24 17:26 | XMS_ITS | Encounter Summary ---
Author Organization [facility] [place] [address] Care Team Providers Care Commodity Merchant Name Role Phone Radha Mckeon MD Primary Care Provider [phone] Encounter Details Date Type Department Care Team (Late st Contact Info) Description 10/02/2020 Telephone [place] [phone] [place] [facility] [place] [address] Social History Tobacco Use Types Packs/Day Years [...] AM EDT Hospital Encounter Non-[place] [address] Arrived 02/22/2025 1:30 PM EDT Appointment Hematology [place] [address] 02/22/2025 2:30 PM EDT Office Visit Hematology [place] [address] Ellis Childers MD [facility] [address] [place] [address] Felicita Landa APRN [facility] [address] [place] [address] documented as of this encounter Visit Diagnoses Not on filedocumented in this encounter Care Teams Commodity Merchant Relationship Specialty Start Date End Date Radha Mckeon MD [address] [place] [address] PCP - General 09/23/10 documented as of this encounter
--- OUTSIDE RECORDS SUMMARY | 2024-07-24 17:26 | XMS_ITS | Encounter Summary ---
Author Organization [facility] [place] [address] Care Team Providers Care Hydrotel Operator Name Role Phone Radha Mckeon MD Primary Care Provider [phone] Reason for Visit * Reason Comments Pain Management Back Pain * Consultation (Routine) - Specialty Diagnoses / Procedures Referred By Becki guillory Referred To [facility] Diagnoses S/P revision of total knee, right Pain - Knee pain / XR 03/05/2020 & CT 04/26/19 & MRI 01/31/[address] [place] [facility] [address] [place] [address] [facility] [place] [address] Referral ID Status Reason Start Date Expiration Date V isits Requested Visits Authorized [id number] Consult, Test & Treat 03/07/2020 03/07/2021 3 3 Encounter Details Date Type Department Care Team (Late st Contact Info) Description 04/26/2020 3:00 PM EDT Office Visit [place] [address] Sera White APRN [facility] [place] [address] Post laminectomy syndrome Social History Tobacco Use Types Packs/Day Years [...] Sign Reading Time Taken Comments Blood Pressure 154/82 04/26/2020 3:09 PM EDT Pulse 58 04/26/2020 3:09 PM EDT Temperature 36.8 ??C (98.2 ??F) 04/26/2020 3:09 PM ED T Respiratory Rate - - Oxygen Saturation 99% 04/26/2020 3:09 PM EDT Inhaled Oxygen Concentration - - Weight 76.2 kg (168 lb) 04/26/2020 3:09 PM EDT Height 182.9 cm (6') 04/26/2020 3:09 PM EDT Body Mass Index 22.78 04/26/2020 3:09 PM EDT documented in this encounter Patient Instructions * Patient Instructions* Sera White APRN - 04/26/2020 3:00 PM EDT 1) Discussed therapeutic cannabis 2) Start Compounded Pain Cream - Ketamine 10%, Ketoprofen 15%, Gabapentin 6%, Bupivacaine 0.05% 1-2g 3-4 times a day topically to affected area - sent to [facility] pharmacy 3) Discussed continuing to titrate oxycodone - recommend changing to oxycodone 5 mg 1-2 times a dayas needed then taper off 4) Consider low dose naltrexone 5) Continue mindfulness and meditation 6) Continue home walking program 7) Discussed using a back brace for comfort with activities documented in this encounter Progress Notes * Srea White APRN - 04/26/2020 3:00 PM EDT [facility] FOLLOW-UP Date of Service: April 26, 2020 Chief Complaint: Chief Complaint Patient presents with ??? Pain Management ??? Back Pain HPI: Subjective Malik Machado is a 69 y.o. male who presents today for follow-up for pain management. My first meeting with Mr. Machado was 03/28/2020 for a telehealth visit to discuss right knee genicular nerve block as referred by ANDREE Diaz. At his visit we discussed genicular knee blocks and he was referred to [facility] for further evaluation and discussion of genicular nerve blocks. Since his last visit with this provider he was seen by Dr. Jauregui, surgeon, who advised waiting prior to pursuing genicular nerve blocks. He also recommended starting gabapentin or lyrica of hyperalgesia of the right knee. Patient continues to have areas of severe tenderness of the right knee but has been able to continue to increase his activity level. Has been walking 1-3 miles a day. Mr. Machado also suffers from chronic back pain for which he was seen in the past by Dr. Ramires,Zenaida Orta, EDENILSON and Dr. 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 He had followed many years under the care of Dr. Royal from 2005 to 2016, had tried various opioid management options for back pain including Fentanyl patch and methadone. Dr. Klein had discussed SCS with patient in 2010. By 2014 he has stopped methadone and was using oxycodone 15 mg as needed. Cannabis and low dose naltrexone was discussed with patient in the past in this department. He has been continuing with self-care and medication management for the past few years and also continued on oxycodone with his primary care provider. He would like to discuss his back pain and options for his back pain today. He has heard that his oxycodone use could be impacting his chronic knee pain and he would like to know what can be done to manage his back pain. He states that he has been using 1/2 tablet of oxycodone 15 mg as needed for severe pain. He states that he has not used this in the past 10 days because he wanted to see that hedid not need to take this. He continues to have severe episodes of back pain and wants to know whatoptions he has for his chronic back pain. Patient states he had many injections in his back previously that did not improve his back pain buthe is open to discussing all options. Onset: chronic Location: Right knee Bilateral low back Characteristics: aching and sharp Timing: all day Severity: 06/10 now Aggravating factors: bearing extra weight on the right knee, bending, walking, standing Relieving factors: has been having slight improvement in knee pain in time No benefit with topical cream or lidocaine patches myD-H Pain 10/12/2013 VR12 - Physical Summary Component 20.97 VR12 - Mental Component Summary 63.19 MODEMS Satisfaction 33.33 PROCEDURES/SURGERY TYPE DATE BENEFIT NOT TRIALED Right TKA. Dr. Mi. 01/14/2010 Right TKA Revision. Aseptic revision of the patella. Dr. Jauregui. 11/15/2019 EVALUATIONS: TYPE DATE Orthopaedics Dr. Jauregui, [address], [place] Pain Management Dr. Klein for many years Seen x1 by Dr. 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 Marital status: Spouse name: Not on file ??? Number of children: Not on file ??? Years of education: Not on file ??? Highest education level: Not on file Occupational History ??? Not on file Social Needs ??? Financial resource strain: Not on file ??? Food insecurity Worry: Not on file Inability: Not on file ??? Transportation needs Medical: Not on file Non-medical: Not on file Tobacco Use ??? Smoking status: Former Smoker Packs/day: 2.00 Years: 16.00 Pack years: 32.00 Types: Cigarettes Last attempt to quit: 11/09/1982 Years since quittin.4 ??? Smokeless tobacco: Never Used Substance and Sexual Activity ??? Alcohol use: No ??? Drug use: Never ??? Sexual activity: Yes Lifestyle ??? Physical activity Days per week: Not on file Minutes per session: Not on file ??? Stress: Not on file Relationships ??? Social connections Talks on phone: Not on file Gets together: Not on file Attends rastafari service: Not on file Active member of club or organization: Not on file Attends meetings of clubs or organizations: Not on file Relationship status: Not on file ??? Intimate partner violence Fear of current or ex partner: Not on file Emotionally abused: Not on file Physically abused: Not on file Forced sexual activity: Not on file Other Topics Concern ??? Not on file Social History Narrative ??? Not on file Aberrant behaviors/Risk Assessment: No current nicotine use No current alcohol use Other drugs: Denies use of any recreational or illegal drugs to include but are not limited to cocaine, heroine, methamphetamines or synthetics. Denies taking medications that were not prescribed to him. OPIOID RISK ASSESSMENT OPIOID RISK TOOL Female Male 1. Family history of Substance Abuse Alcohol [] 1 [x] 3 Illegal Drugs [] 2 [] 3 Prescription Drugs [] 4 [] 4 2. Personal History of Substance Abuse Alcohol [] 3 [] 3 Illegal Drugs [] 4 [] 4 Prescription Drugs [] 5 [] 5 3. Age (trudi box if 16-45) [] 1 [] 1 4. History of Preadolescent Sexual Abuse [] 3 [] 0 5. Psychological Disease Attention Deficit Disorder, Obsessive Compulsive D/o, Bipolar, Schizophrenia [] 2 [] 2 Depression [] 1 [] 1 TOTAL: 3 Comments about ORT in relation to this patient: Opioid Risk Category: low risk 0-3 Total Score Risk Category: 0-3 = Low Risk 4-7 = Moderate Risk > 8 = High Risk FAMILY HISTORY: Family History Problem Relation Age [...] medication ??? Irregular heart beat afib ??? FDC current use of opiate analgesic oxycodone, prescribed [...] CURVED Procedure Date: 01/14/2010 ??? JOINT REPLACEMENT [id number] ??? PACEMAKER IMPLANT loop recorder ??? PRO REVISE KNEE JOINT REPLACE, ALL PARTS Right 11/15/2019 @TOTAL KNEE REVISION ARTHROPLASTY, COMPLETE (WRVU 27.11) performed by Sukhjinder Jauregui MD at [facility] MAIN OR ??? XR JOINT ASPIRATION - LARGE JOINT RIGHT Right 01/02/2019 XR Fluoro Guided Joint Aspiration Large Right 01/02/2019 [facility] RAD XRAY ALLERGIES: Amitriptyline hcl; Atorvastatin; and Flecainide MEDICATIONS: Medications 04/26/20 1517 Medication Sig Taking? acyclovir (ZOVIRAX) 200 mg Capsule 1 capsule. Indications: prn Yes diclofenac (VOLTAREN) 1 % Gel Apply topically Once daily as needed. Yes gabapentin (Neurontin) 300 mg Capsule 3 times daily. Indications: titrating up to 900 mg Yes Staples-3 Fatty Acids-Fish Oil 300-1,000 mg Capsule Take 1 g by mouth Daily. Yes tamsulosin (Flomax) 0.4 mg Capsule TK 1 C PO QD Yes fluticasone propionate (FLONASE) 50 mcg/actuation [place], Suspension INSTILL 1SPRAY IN EACH NOSTRIL TWICE [...] severe pain (7-10) take 20 mg). Yes lidocaine (LIDODERM) 5 % Adhesive Patch, Medicated Change 3 patches on the skin daily. Apply 1 patch onto the skin daily. (leave on for 12 hours and remove for 12 hours) Yes multivitamin with minerals (THERA-M) 9 mg iron-400 mcg Tablet Take 1 tablet by mouth daily. Yes lamoTRIgine (LAMICTAL) 25 mg Tablet Take [...] mg by mouth 2 times daily. Yes verapamil (CALAN-SR) 120 mg Tablet Sustained Release Take 1 tablet by mouth daily. Patient taking differently: Take 120 mg by mouth nightly. Yes levothyroxine (SYNTHROID) 100 mcg Tablet Take 100 mcg by mouth daily. Yes valACYclovir (VALTREX) 500 mg Tablet Take 500 mg by mouth nightly. Yes MULTIVITAMIN W-MINERALS/LUTEIN (CENTRUM SILVER ORAL) Take 1 tablet by mouth. Yes Staples-3 Fatty Acids-Vitamin E (FISH OIL) 1,000 mg Cap Take 2,000 mg by mouth daily. Yes baclofen (LIORESAL) 10 mg tablet Take 10 mg by mouth nightly as needed. Yes simvastatin (ZOCOR) 10 mg tablet Take 10 mg by mouth nightly. Yes RX ADULT COMPOUNDED MEDICATION Apply 1-2 g 3-4 times a day topically to affected area, dispense #160g methocarbamol (ROBAXIN) 750 mg Tablet Take 1 tablet by mouth every 8 hours as needed (muscle spasms). Patient not taking: Reported on 04/26/2020 polyethylene glycol (MIRALAX) 17 gram Powder in Packet Take 17 g by mouth 2 times daily. Patient not taking: Reported on 03/28/2020 senna-docusate (PERICOLACE) 8.6-50 mg Tablet Take 2 tablets by mouth 2 times daily. Patient not taking: Reported on 04/22/2020 BOTOX 200 unit Recon Soln Inject 200 Units as directed Q 3 Months. ROS: Constitutional Denies fevers, chills, or unexpected of weight HEENT Denies new hearing problems, vision problems or dental problems. Cardiovascular Denies chest pain, palpitations, [place], hypertension, heart murmur. Respiratory Denies cough, SOB, wheezing, asthma. GI Denies N/V, no stool incontinence Denies kidney problems, infections, blood in urine, or kidney stones, no bladder incontinence Musculoskeletal see HPI. Neurologic Denies seizures, stroke, shock, frequent headaches, dizziness or passing out. Sleep is good but wakes up to void. Psychiatric Denies depression, anxiety, stress or suicidal ideation. Hematologic Some easy bruising on anticoagulant, no lymph gland swelling Dermatologic Denies rashes, or other skin problems PHYSICAL EXAM: BP 154/82 Pulse 58 Temp 36.8 ??C (98.2 ??F) Ht 182.9 cm (6') Wt 76.2 kg (168 lb) SpO2 99% BMI 22.78 kg/m?? Physical Exam Constitutional: General: He is not in acute distress. Appearance: Normal appearance. He is not toxic-appearing. Eyes: General: Right eye: No discharge. Left eye: No discharge. Conjunctiva/sclera: Conjunctivae normal. Pulmonary: Effort: Pulmonary effort is normal. Musculoskeletal: Comments: Right knee appears larger than left. Hyperalgesia distal anterior right knee. Lumbar tenderness right and left paraspinal muscles. Positive Kemps maneuver R Neurological: Mental Status: He is alert and oriented to person, place, and time. Psychiatric: Mood and Affect: Mood normal. Behavior: Behavior normal. RADIOLOGIC DATA: XR R knee 03/07/2020 - report below EXAMINATION: XR KNEE 1-2 VIEWS RIGHT (GENERIC) ?? CLINICAL HISTORY: H/O total knee replacement, right ? TECHNIQUE: 2 views RIGHT knee ?? COMPARISON: 12/25/19 ?? FINDINGS: Status post total knee arthroplasty. No periprosthetic lucency or fracture. No joint effusion. Anterior soft tissue swelling is unchanged. Alignment is intact. ?? IMPRESSION Total knee arthroplasty without radiographic evidence of hardware complication. LABS/DX RESULTS: None received from the past 2 months ASSESSMENT: Assessment Encounter Diagnosis Name Primary? Post laminectomy syndrome 69 yo male s/p right total knee arthroplasty revision- poly swab and patellar revision with Dr. Jordan 11/15/2019. He continues to have severe pain of the right knee along with hyperalgesia. He was seen by Dr. Jauregui who recommended he start gabapentin or Lyrica. Since last visit he was also seen by Janeen Napier pain management [facility] as referred by this provider. Per Dr. Jauregui not moving forward with genicular nerve blocks. Recommend continuing with desensitization and recommend starting topical compounded pain cream. Given the patient is having hyperalgesia of the right knee reviewed with patient that long-term opiate use can lead to hyperalgesia and that tapering off this medication at this point would be recommended. Recommend changing to oxycodone 5 mg 1 to 2 tablets daily as needed for pain. Goal to taper off opiate medication. Patient states he is open to using cannabinoids as needed for pain. States he never really give this a fair trial. He is discussed with his primary care provider who cannot certify him based off of their office policies from the sounds of it. Agree with recommendations to start gabapentin which was started by kamaljit Napier pain management [facility]. Discussed with patient that this could also help with his back pain. Discussed the risks andbenefits of this medication. He is concerned about cognitive side effects as he is the primary caregiver for his . We will taper up slowly as directed. There was some confusion as to if this visit was to follow-up for knee pain or discuss back pain. History of arachnoiditis with chronic back and lower extremity pain. He has been on long-term opioid use for chronic back pain since 2005. 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 Unfortunately I did not have extensive time today to fully review patient's history of chronic backpain with him while he was in office although I have reviewed notes from the spine center, Dr. Klein, Dr. Hanson from past visits. Spinal cord stimulation was mentioned by Dr. Klein at one point. Given the advances in neuromodulation in the past few years may be possible this may help with arachnoiditis related pain, chronic pain in the back and lower extremities. Unlikely that any procedural intervention will help with arachnoiditis, recommend avoiding lumbar epidural steroid injections as these can often cause and or worsen this condition. Reviewed risks and benefits of cannabinoid therapy with patient and certified at visit today. Will work on collaborating with care team regarding treatment plan. Low dose naltrexone and SCS may be anoption for him. If he continues to have severe break throughout pain that is not managed by cannabis will need to re-evaluate and discuss additional options. PLAN: 1) Discussed therapeutic cannabis- UDS done today- do not expect oxycodone- pt taking PRN has not taken in > 7 days. Attestation for [facility] 2) Start Compounded Pain Cream - Ketamine 10%, Ketoprofen 15%, Gabapentin 6%, Bupivacaine 0.05% 1-2g 3-4 times a day topically to affected area - sent to [facility] pharmacy 3) Discussed continuing to titrate oxycodone - recommend changing to oxycodone 5 mg 1-2 times a dayas needed then taper off 4) Consider low dose naltrexone Low dose naltrexone may be an option for him. When used at low doses, naltrexone functions as a microglial attenuating therapy that decreases inflammation within the central nervous system and improves chronic pain without causing habituation and dependence. Candi Jones.; Susanna Oneal.; Princess Olvera. The use of low-dose naltrexone (LDN) as a novel anti-inflammatory treatment for chronic pain. Clin. Rheumatol. 2014, 33, 451-459. Nannette Pedersen.; Roshan Ulloa. Low-Dose Naltrexone (LDN)-Review of Therapeutic Utilization. Med. Sci. 2018, 6, 82. 5) Continue mindfulness and meditation - handout given for mindfulness resources for chronic pain 6) Continue home walking program 7) Discussed using a back brace for comfort with activities Malik Machado had the opportunity to ask questions and indicated that all questions were answered to his satisfaction. Thank you for the opportunity to participate in Malik Machado's care. Sera White, MSN, SUPERVISOR [employer]- C, LITERATURE PROFESSOR Nurse Practitioner [facility] [address] [address] / [facility] documented in this encounter Plan of Treatment Upcoming Encounters Date Type Department Care Team (Late st Contact Info) Description 08/18/2024 11:00 AM EDT Hospital Encounter [place] [address] Arrived 02/22/2025 1:30 PM EDT Appointment H[place]ology [place] [address] 02/22/2025 2:30 PM EDT Office Visit [place]ology [place] [address] Ellis Childers MD [facility] DR HEMATOLOGY [place] [address] Felicita Landa APRN [facility] [address] HEMATOLOGY [place] [address] documented as of this encounter Procedures Procedure Name Priority Date/Time Associated Diagnosis Comments RAPID DRUG SCREEN, URINE Routine 04/26/2020 4:28 PM EDT Post laminectomy syndrome RAPID DRUG SCREEN W/ CONFIRMATION, URINE Routine 04/26/2020 4:28 PM EDT documented in this encounter Results * Rapid Drug Screen w/ Confirmation, Urine (04/26/2020 4:28 PM EDT) [facility] Barbiturates Screen, Urine None Detected None Detected [facility] Comment: The barbiturate screen detects barbiturates at concentrations >200 ng/mL. Note: Not all barbiturates cross-react equally with antibody used in this screen. A ? Presumptive Positive? result indicates that the screening result was positive but has not yet been confirmed by a highly-specific method. As with any screen, occasional false positive results from cross-reacting substances may occur. Not for Medico-Legal Purposes. Benzodiazepines Screen, Urine None Detected None Detected [facility] Comment: The benzodiazepines screen detects benzodiazepines at concentrations >100 ng/mL. Not all benzodiazepines cross-react equally with antibody used in this screen. Due to the low dosage of clonazepam, false negatives may be obtained due to low concentration of clonazepam metabolites. A ? Presumptive Positive? result indicates that the screening result was positive but has not yet been confirmed by a highly-specific method. As with any screen, occasional false positive results from cross-reacting substances may occur. Not for Medico-Legal Purposes. Cocaine Screen, Urine None Detected None Detected [facility] Comment: The cocaine metabolites screen detects benzoylecgonine (Cocaine Metabolite) at concentrations >150 ng/mL. A ? Presumptive Positive? result indicates that the screening result was positive but has not yet been confirmed by a highly-specific method. As with any screen, occasional false positive results from cross-reacting substances may occur. Not for Medico-Legal Purposes. Methadone Metabolites Screen, Urine None Detected None Detected [facility] Comment: The methadone metabolite screen detects EDDP (major methadone metabolite) at concentrations >100 ng/mL. A ? Presumptive Positive? result indicates that the screening result was positive but has not yet been confirmed by a highly-specific method. As with any screen, occasional false positive results from cross-reacting substances may occur. Not for Medico-Legal Purposes. Opiate Screen, Urine None Detected None Detected [facility] Comment: The opiates screen detects opiates at concentrations >300 ng/mL. Please note that oxycodone, oxymorphone, fentanyl, tramadol, and other synthetic opioids are not detected by the opiate screen. A ? Presumptive Positive? result indicates that the screening result was positive but has not yet been confirmed by a highly-specific method. As with any screen, occasional false positive results from cross-reacting substances may occur. Not for Medico-Legal Purposes. Cannabinoid Screen, Urine None Detected None Detected [facility] Comment: The marijuana metabolites screen detects the THC metabolite (07-wxb-8-carboxy-delta 9-THC) at concentrations >20 ng/mL. A ? Presumptive Positive? result indicates that the screening result was positive but has not yet been confirmed by a highly-specific method. As with any screen, occasional false positive results from cross-reacting substances may occur. Not for Medico-Legal Purposes. Oxycodone Screen, Urine None Detected None Detected [facility] Comment: The oxycodone screen detects oxycodone and oxymorphone at concentrations >100 ng/mL. A ? Presumptive Positive? result indicates that the screening result was positive but has not yet been confirmed by a highly-specific method. As with any screen, occasional false positive results from cross-reacting substances may occur. Not for Medico-Legal Purposes. Buprenorphine Screen, Urine None Detected None Detected [facility] Comment: The buprenorphine screen detects buprenorphine at concentrations >5 ng/mL. A ? Presumptive Positive? result indicates that the screening result was positive but has not yet been confirmed by a highly-specific method. As with any screen, occasional false positive results from cross-reacting substances may occur. Not for Medico-Legal Purposes. Fentanyl Screen, Urine None Detected None Detected [facility] Comment: The fentanyl screen detects fentanyl at concentrations >2 ng/mL. A ? Presumptive Positive? result indicates that the screening result was positive but has not yet been confirmed by a highly-specific method. As with any screen, occasional false positive results from cross-reacting substances may occur. Not for Medico-Legal Purposes. Tricyclics Screen, Urine None Detected None Detected [facility] Comment: The tricyclics screen detects tricyclic antidepressants at concentrations >150 ng/mL. Not all tricyclics cross-react equally with the antibody used in this screen. A ? Presumptive Positive? result indicates that the screening result was positive but has not yet been confirmed by a highly-specific method. As with any screen, occasional false positive results from cross-reacting substances may occur. Not for Medico-Legal Purposes. Ethanol Screen, Urine None Detected None Detected [facility] Comment:This urine ethanol a ssay detects ethanol at concentrations >/= 100 mg/L. Amphetamines Screen, Urine None Detected None Detected [facility] Comment: The amphetamine screen detects d-amphetamine and d-methamphetamine at concentrations >300 ng/mL. A ? Presumptive Positive? result indicates that the screening result was positive but has not yet been confirmed by a highly-specific method. As with any screen, occasional false positive results from cross-reacting substances may occur. Not for Medico-Legal Purposes. Adulterants Screen, Urine None Detected None Detected [facility] Comment: No adulteration or dilution of this urine sample was detected. All urine samples submitted for urine drugs of abuse analysis are tested for creatinine concentration, pH, and for the presence of oxidants, nitrites, and chromate. Urine specimen (specimen) 04/26/2020 4:28 PM EDT 04/26/2020 5:05 PM EDT Narrative Resulting Agency Comment Spec In Lab Sera A Cindy DAVENPORT CHEMISTRY ORDERABLES Performing Organization Address [facility] Co de Phone Number [facility] [place] [address] * Rapid Drug Screen, Urine (NIKOLAS Request) (04/26/2020 4:28 PM EDT) NIKOLAS Conf Requested Yes [facility] NIKOLAS Requested See Comment [facility] Comment:Refer to Rapid Drug Screen w/ Confirmation, Urine for results. Urine specimen (specimen) 04/26/2020 4:28 PM EDT 04/26/2020 5:05 PM EDT Narrative Resulting Agency Comment Spec In Lab Sera Lina White LITERATURE PROFESSOR URINE ORDERABLES Performing Organization Address [facility] Co de Phone Number [facility] [place] [address] documented in this encounter Visit Diagnoses Diagnosis Post laminectomy syndrome Postlaminectomy syndrome, unspecified region documented in this encounter Care Teams Hydrotel Operator Relationship Specialty Start Date End Date Radha Mckeon MD [address] [place] [address] PCP - General 09/23/10 documented as of this encounter
--- OUTSIDE RECORDS SUMMARY | 2024-07-24 17:26 | XMS_ITS | Encounter Summary ---
[place] [address] Care Team Providers Care Children'S Ministries Director Name Role Phone Radha Mckeon MD Primary Care Provider [phone] Encounter Details Date Type Department Care Team (Late st Contact Info) Description 10/22/2020 Orders Only [facility] [place] [address] Nathalia Lau, JUSTUS Social History Tobacco Use Types Packs/Day Years [...] AM EDT Hospital Encounter [place] [address] Arrived 02/22/2025 1:30 PM EDT Appointment Hematology [place] [address] 02/22/2025 2:30 PM EDT Office Visit Hematology [place] [address] Ellis Childers MD [facility] [address] HEMATOLOGY [place] [address] Felicita Landa APRN [facility] [address] HEMATOLOGY [place] [address] documented as of this encounter Visit Diagnoses Not on filedocumented in this encounter Care Teams Children'S Ministries Director Relationship Specialty Start Date End Date Radha Mckeon MD [address] [place] [address] PCP - General 09/23/10 documented as of this encounter
--- OUTSIDE RECORDS SUMMARY | 2024-07-24 17:26 | XMS_ITS | Encounter Summary ---
Author Organization [facility] [place] [address] Care Team Providers Care Supervisor Char House Name Role Phone Radha Mckeon MD Primary Care Provider [phone] Encounter Details Date Type Department Care Team (Latest Contact Info) Description 07/10/2020 10:28 AM EDT - 07/10/2020 11:59 PM EDT Hospital Encounter Non-Invasive [place] [address] Omar Corcoran MD [facility] [place] [address] Paroxysmal atrial fibrillation; Chest pain, unspecified type [...] QD 04/23/2020 fluticasone propionate (FLONASE) 50 mcg/actuation [place], Suspension INSTILL 1SPRAY IN EACH NOSTRIL TWICE [...] AM EDT Hospital Encounter Non-Invasive [place] [address] Arrived 02/22/2025 1:30 PM EDT Appointment Hematology [place] [address] 02/22/2025 2:30 PM EDT Office Visit Hematology [place] [address] Ellis Childers MD [facility] DR HEMATOLOGY [place] [address] Felicita Landa APRN [facility] DR HEMATOLOGY [place] [address] documented as of this encounter Procedures Procedure Name Priority Date/Time Associated Diagnosis Comments NUCLEAR PHARMACOLOGIC STRESS CARDIOLOGY Routine 07/10/2020 12:22 PM EDT Paroxysmal atrial fibrillation Chest pain, unspecified type documented in this encounter Results * Nuclear Pharmacologic Stress Cardiology (07/10/2020 12:22 PM EDT) Anatomical Region Laterality Modality Other Omar Corcoran MD [facility] ORD ERABLES documented in this encounter Visit Diagnoses Diagnosis Paroxysmal atrial fibrillation Atrial fibrillation Chest pain, unspecified type documented in this encounter Care Teams Supervisor Char House Relationship Specialty Start Date End Date Radha Mckeon MD [address] [place] [address] PCP - General 09/23/10 documented as of this encounter
--- OUTSIDE RECORDS SUMMARY | 2024-07-24 17:26 | XMS_ITS | Encounter Summary ---
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 11/17/2019 lamoTRIgine (LAMICTAL) 25 mg Tablet Take 50 [...] Take 10 mg by mouth nightly. acetaminophen (TYLENOL) 500 mg Tablet Take 2 [...] by mouth 2 times daily. 11/17/2019 06/25/2020 metoprolol succinate (TOPROL-XL) 100 mg Tablet Sustained Release 24 hrIndications:Paroxysma l atrial fibrillation take 1 and 1/2 tablets by mouth daily 135 tablet 3 03/06/2019 02/23/2020 omeprazole (PRILOSEC) 20 mg Capsule, Delayed Release(E.C.) [...] AM EDT Hospital Encounter Non-Invasive [place] [address] Arrived 02/22/2025 1:30 PM EDT Appointment Hematology [place] [address] 02/22/2025 2:30 PM EDT Office Visit Hematology [place] [address] Ellis Childers MD [facility] DR [place] [address] Felicita Landa APRN [facility] DR [place] [address] documented as of this encounter Procedures Procedure Name Priority Date/Time Associated Diagnosis Comments XR KNEE STANDING ALIGNMENT AP LAT SKYLINE RIGHT Routine 12/25/2019 12:18 PM EST S/P right total knee arthroplasty revision - poly swab and patellar revision Moschetti 11/15/2019 documented in this encounter Results * XR Knee Standing Alignment AP Lat [place] Right (12/25/2019 12:18 PM EST) Anatomical Region Laterality Modality Knee Right Digital Radiogra phy Impressions 12/25/2019 2:18 PM EST 1. ??Uncomplicated revised right total knee arthroplasty. Anterior knee soft tissue swelling and knee joint effusion are nonspecific. No hardware complications. 2. ??Mechanical axes of the bilateral legs, as described. Thank you for letting us participate in the care of this patient. For questions regarding this report, please contact the number below. ? Narrative 12/25/2019 2:18 PM EST EXAMINATION: XR KNEE STANDING ALIGNMENT AP LAT SKYLINE RIGHT CLINICAL HISTORY: S/P right TKA REV (as entered by ordering provider in the order requisition) TECHNIQUE: Separate images of the pelvis, knees and feet were acquired in the AP projection with the patient standing. These images were stitched together to form a composite image of the pelvis and legs allowing for evaluation of lower extremity alignment in the weight bearing position. AP and sunrise views of the bilateral knees, lateral view of the right knee. COMPARISON: CT the right knee 04/26/2019. Right knee radiograph 12/13/2018. FINDINGS: Mechanical axes of the right leg passes through the central tibial tray. Mechanical axis of the left leg passes through the medial tibial spine. Right: Status post right total knee arthroplasty. Status post revision of the patellofemoral component. There is anterior knee soft tissue swelling with a knee joint effusion. No periprosthetic fracture or bone resorption. Left: The medial and lateral joint spaces of the left knee are preserved. Procedure Note Jia Hair MD - 12/25/2019 EXAMINATION: XR KNEE STANDING ALIGNMENT AP LAT SKYLINE RIGHT CLINICAL HISTORY: S/P right TKA REV (as entered by ordering provider inthe order requisition) TECHNIQUE: Separate images of the pelvis, knees and feet were acquired inthe AP projection with the patient standing. These images were stitched togetherto form a composite image of the pelvis and legs allowing for evaluation oflower extremity alignment in the weight bearing position. AP and sunrise viewsof the bilateral knees, lateral view of the right knee. COMPARISON: CT the right knee 04/26/2019. Right knee radiograph12/13/2018. FINDINGS: Mechanical axes of the right leg passes through the central tibial tray. Mechanical axis of the left leg passes through the medial tibial spine. Right: Status post right total knee arthroplasty. Status post revision ofthe patellofemoral component. There is anterior knee soft tissue swelling witha knee joint effusion. No periprosthetic fracture or bone resorption. Left: The medial and lateral joint spaces of the left knee arepreserved. IMPRESSION 1. Uncomplicated revised right total knee arthroplasty. Anterior kneesoft tissue swelling and knee joint effusion are nonspecific. No hardware complications. 2. Mechanical axes of the bilateral legs, as described. Thank you for letting us participate in the care of this patient. Forquestions regarding this report, please contact the number below. Sukhjinder Jauregui MD IMG DX ORDERABLES documented in this encounter Visit Diagnoses Diagnosis S/P right total knee arthroplasty revision - poly swab and patellar revision Shania 11/15/2019 documented in this encounter Care Teams Dedicated Driver Relationship Specialty Start Date End Date Radha Mckeon MD [address] [place] [address] PCP - General 09/23/10 documented as of this encounter
--- OUTSIDE RECORDS SUMMARY | 2024-07-24 17:26 | XMS_ITS | Encounter Summary ---
Author Organization [facility] [address] Care Team Providers Care Associate Software Development Engineer Name Role Phone Radha Mckeon MD Primary Care Provider [phone] Encounter Details Date Type Department Care Team (Late st Contact Info) Description 02/01/2020 Telephone [place] [phone] Florecita Lopez, RN Social History Tobacco Use [...] Telephone Encounter - Florecita Lopez, RN - 02/06/2020 12:57 PM EDT S/P R Total Knee Arthroplasty revision, Mr Machado called and stated he is stil concerned about post op pain, and advised will get with Mr Way, and we will return his phone call. Best Call Back: [phone] * Telephone Encounter - Florecita Lopez RN - 02/01/2020 3:41 PM EDT S/P R Total Knee Arthroplasty revision - poly swab and patellar revision, office visit, 12/25/2019, ANDREE Diaz Mr Machado called and stated he is having pain in his R leg, and discoloration at the incision [id number]. Mr Machado went into quite a bit of detail about his surgery, and the revision and repair he had done, and some new pain, and he wonders if this is normal. Reviewed his chart, and talked about healing time. Also medication. He takes Tylenol, elevates no ice, and 1/2 Oxycodone every other day. He also states he is exercising, and walking without a cane., advised resting, at times, as part of the healing process. Pt would like a call back, best Call back: [phone] Noted follow up on 03/07/2020 documented in this encounter Plan of Treatment Upcoming Encounters Date Type Department Care Team (Late st Contact Info) Description 08/18/2024 11:00 AM EDT Hospital Encounter Non-Invasive [place] [address] Arrived 02/22/2025 1:30 PM EDT Appointment Hematology and Oncology at [place] [phone] 02/22/2025 2:30 PM EDT Office Visit Hematology and Oncology at [place] [phone] Ellis Childers MD [facility] [place] [address] Felicita Landa APRN [facility] [place] [address] documented as of this encounter Visit Diagnoses Not on filedocumented in this encounter Care Teams Associate Software Development Engineer Relationship Specialty Start Date End Date Radha Mckeon MD [address] [place] [address] PCP - General 09/23/10 documented as of this encounter
--- OUTSIDE RECORDS SUMMARY | 2024-07-24 17:26 | XMS_ITS | Encounter Summary ---
Author Organization [facility] [place] [address] Care Team Providers Care Residence Life Coordinator Name Role Phone Radha Mckeon MD Primary Care Provider [phone] Encounter Details Date Type Department Care Team (Late st Contact Info) Description 12/18/2019 Telephone Cardiology at [address] [phone] Halima Mckeon PA [facility] [place] [address] Social History Tobacco Use Types Packs/Day Years [...] encounter Miscellaneous Notes * Telephone Encounter - Halima Mckeon PA - 12/18/2019 3:46 PM EST TC to Patient on cell and home numbers (VM full on cell phone, left VM on home phone) Given lack of Eliquis for several days due to financial limitations, will initiate warfarin 5mg po x 3 days, with INR check on 4th day. Patient's PCP (Dr. Mckeon's office in [place], [place]) is able to facilitate INR follow-up/monitoring. ANDREE Alston 3:54 PM 12/18/19 documented in this encounter Plan of Treatment Upcoming Encounters Date Type Department Care Team (Late st Contact Info) Description 08/18/2024 11:00 AM EDT Hospital Encounter Non-Invasive [place] [address] Arrived 02/22/2025 1:30 PM EDT Appointment Hematology [place] [address] 02/22/2025 2:30 PM EDT Office Visit Hematology [place] [address] Ellis Childers MD [facility] [address] [place] [address] Felicita Landa APRN [facility] [address] [place] [address] documented as of this encounter Visit Diagnoses Diagnosis Paroxysmal atrial fibrillation Atrial fibrillation documented in this encounter Care Teams Residence Life Coordinator Relationship Specialty Start Date End Date Radha Mckeon MD [address] [place] [address] PCP - General 09/23/10 documented as of this encounter
--- OUTSIDE RECORDS SUMMARY | 2024-07-24 17:26 | XMS_ITS | Encounter Summary ---
Author Organization [facility] [place] [address] Care Team Providers Care Customs Compliance Specialist Name Role Phone Radha Mckeon MD Primary Care Provider [phone] Encounter Details Date Type Department Care Team (Late st Contact Info) Description 06/07/2020 Telephone Cardiology at [address] [address] Alla Aguiar RN Social History Tobacco Use Types Packs/Day [...] Telephone Encounter - Alla Aguiar RN - 06/07/2020 4:43 PM EDT TC to f/u on ED visit. Pt home and still feeling sharp twinges. States testing in the ED at [facility] was negative. Pt states would like to know what is going on. He was told that he should have a stress test and f/u with his PCP. Pt concerned about his ILR, overdue for his 12 month f/u, was able to transfer pt to scheduling to get a f/u appt scheduled and a request for medical records was made. Pt aware if sx worsen or change to call the clinic or to go to the ED, pt verbalized understanding and appreciation. documented in this encounter Plan of Treatment Upcoming Encounters Date Type Department Care Team (Late st Contact Info) Description 08/18/2024 11:00 AM EDT Hospital Encounter Non-[place] [address] Arrived 02/22/2025 1:30 PM EDT Appointment Hematology [place] [phone] 02/22/2025 2:30 PM EDT Office Visit Hematology [place] [address] Ellis Childers MD [facility] [address] [place]EMATOLOGY [place] [address] Felicita Landa APRN [facility] [address] HEMATOLOGY [place] [address] documented as of this encounter Visit Diagnoses Not on filedocumented in this encounter Care Teams Customs Compliance Specialist Relationship Specialty Start Date End Date Radha Mckeon MD [address] [place] [address] PCP - General 09/23/10 documented as of this encounter
--- OUTSIDE RECORDS SUMMARY | 2024-07-24 17:26 | XMS_ITS | Encounter Summary ---
Author Organization [facility] Address [facility] [place] [address] Care Team Providers Care Computer Operations Manager Name Role Phone Radha Mckeon MD Primary Care Provider [phone] Encounter Details Date Type Department Care Team (Latest Contact Info) Description 11/29/2020 12:13 PM EST - 11/29/2020 1:58 PM [facility] Hospital Encounter XRay at [address] [place] [address] Radha Mckeon MD [address] [place], [place] [address] MRI safe cardiac pacemaker in situ Discharge Disposition: Home Social History Tobacco Use [...] QD 04/23/2020 fluticasone propionate (FLONASE) 50 mcg/actuation [place], Suspension INSTILL 1SPRAY IN EACH NOSTRIL TWICE [...] 10 mg by mouth nightly. flu vacc [id number] up,/PF (FluZONE HighDose Quad 20-21 PF) 240 mcg/0.7 mL Syringe seasonal 07/23/202004/01 doxycycline (VIBRA-TABS) 100 mg Tablet TK 1 T PO BID 08/13/2020 12/02/2020 predniSONE (Deltasone) 10 mg Tablet daily. 10/14/2020 12/02/2020 gabapentin (Neurontin) 300 mg CapsuleIndications:titr ating up [...] AM EDT Hospital Encounter Non-[place] [address] Arrived 02/22/2025 1:30 PM EDT Appointment Hematology [place] [address] 02/22/2025 2:30 PM EDT Office Visit Hematology [place] [phone] Ellis Childers MD [facility] [address] [place] [address] Felicita Landa APRN [facility] [address] [place] [address] documented as of this encounter Procedures Procedure Name Priority Date/Time Associated Diagnosis Comments XR CHEST PA AND LATERAL Routine 11/29/2020 12:22 PM EST MRI safe cardiac pacemaker in situ documented in this encounter Results * XR Chest PA & Lateral (Generic) (11/29/2020 12:22 PM EST) Anatomical Region Laterality Modality Chest N/A Digital Radiogra phy Impressions 11/29/2020 1:14 PM EST 1. ??No active cardiopulmonary pathology identified. 2. ??MR compatible implantable loop recorder, as before. Thank you for letting us participate in the care of this patient. For questions regarding this report, please contact the number below. ? Electronically signed by: Radha Troncoso MD, [facility] ([phone]), at 11/29/2020 1:14 PM Narrative 11/29/2020 1:14 PM EST EXAMINATION: XR CHEST PA AND LATERAL (GENERIC) CLINICAL HISTORY: Pre MRI Chest Xray of Patient with ILR TECHNIQUE: PA and lateral views of the chest. COMPARISON: 01/31/2019. FINDINGS: Left anterior chest wall MRI compatible implantable loop recorder in unchanged position. No other equipment seen. The lungs appear clear. The cardiomediastinal silhouette, jerson, pulmonary vessels, and pleura are within normal limits. No significant osseous findings are seen. Procedure Note Radha Troncoso MD - 11/29/2020 EXAMINATION: XR CHEST PA AND LATERAL (GENERIC) CLINICAL HISTORY: Pre MRI Chest Xray of Patient with ILR TECHNIQUE: PA and lateral views of the chest. COMPARISON: 01/31/2019. FINDINGS: Left anterior chest wall MRI compatible implantable looprecorder in unchanged position. No other equipment seen. The lungs appear clear. The cardiomediastinal silhouette, jerson, pulmonary vessels, and pleura arewithin normal limits. No significant osseous findings are seen. IMPRESSION 1. No active cardiopulmonary pathology identified. 2. MR compatible implantable loop recorder, as before. Thank you for letting us participate in the care of this patient. Forquestions regarding this report, please contact the number below. Radha Mckeon MD IMG DX ORDERABLES documented in this encounter Visit Diagnoses Diagnosis MRI safe cardiac pacemaker in situ documented in this encounter Care Teams Computer Operations Manager Relationship Specialty Start Date End Date Radha Mckeon MD [address] [place] [address] PCP - General 09/23/10 documented as of this encounter
--- OUTSIDE RECORDS SUMMARY | 2024-07-24 17:26 | XMS_ITS | Encounter Summary ---
[place] [address] Care Team Providers Care All Around Gear Machine Operator Name Role Phone Radha Mckeon MD Primary Care Provider [phone] Reason for Referral * Diagnostic Test (Routine) - Closed Specialty Diagnoses / Procedures Referred By Becki guillory Referred To Contact Radiology Diagnoses Cervical radiculopathy Procedures MRI Cervical Spine wo Contrast (Generic) Radha Mckeon MD [address] [place] [address] [place] [address] Referral ID Status Reason Start Date Expiration Date V isits Requested Visits Authorized [id number] Closed Specialty Service Requested 11/28/2020 05/28/2022 1 1 Reason for Visit * Diagnostic Test (Routine) - Closed Specialty Diagnoses / Procedures Referred By Becki guillory Referred To Contact Radiology Diagnoses Cervical radiculopathy Procedures MRI Cervical Spine wo Contrast (Generic) Radha Mckeon MD [address] [place] [address] [facility] [place] [address] Referral ID Status Reason Start Date Expiration Date V isits Requested Visits Authorized [id number] Closed Specialty Service Requested 11/28/2020 05/28/2022 1 1 Encounter Details Date Type Department Care Team (Latest Contact Info) Description 11/29/2020 1:59 PM EST - 11/29/2020 11:59 PM EST Hospital [place] [address] Radha Mckeon MD [address] [place] [address] Cervical radiculopathy Discharge Disposition: Home Social History [...] QD 04/23/2020 fluticasone propionate (FLONASE) 50 mcg/actuation [place], Suspension INSTILL 1SPRAY IN EACH NOSTRIL TWICE [...] 10 mg by mouth nightly. flu vacc [id number],65yr up,/PF (FluZONE HighDose Quad 20-21 PF) 240 [...] EDT Hospital Encounter Non-Invasive [place] [address] Arrived 02/22/2025 1:30 PM EDT Appointment Hematology [place] [phone] 02/22/2025 2:30 PM EDT Office Visit Hematology [place] [phone] Ellis Childers MD [facility] DR HEMATOLOGY [place] [address] Felicita Landa APRN [facility] DR HEMATOLOGY [place] [address] documented as of this encounter Procedures Procedure Name Priority Date/Time Associated Diagnosis Comments MRI CERVICAL SPINE WO CONTRAST Routine 11/29/2020 2:42 PM EST Cervical radiculopathy documented in this encounter Results * MRI Cervical Spine wo Contrast (Generic) (11/29/2020 2:42 PM EST) Anatomical Region Laterality Modality C-spine Magnetic Resonan ce Impressions 11/29/2020 3:04 PM EST Mild degenerative changes as described. Thank you for letting us participate in the care of this patient. For questions regarding this report, please contact the number below. ? Narrative 11/29/2020 3:04 PM EST EXAMINATION: MRI CERVICAL SPINE WO CONTRAST (GENERIC) CLINICAL HISTORY: ORDER IN SCANNED DOCS TECHNIQUE: MRI of the cervical spine performed without intravenous contrast administration. COMPARISON: Plain radiographs performed on 10/11/2020 FINDINGS: Cervical alignment is normal. 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 Straightening of the cervical lordosis is noted superiorly. Spinal canal shows a generally average diameter. The spinal cord shows normal diameter, contour and signal intensity. The foramen magnum shows no abnormalities. C1-2 articulation is normal. C2-3 disc and spinal canal are normal in appearance. The intervertebral foramina are patent on sagittal and sagittal oblique images. The C3-4 level and mild uncovertebral joint hypertrophy. There is narrowing of the left C3-4 intervertebral foramen due to uncovertebral joint and facet joint hypertrophy. C4-5 is a mild disc/osteophyte complex. Uncovertebral joint and facet hypertrophy are noted bilaterally. Moderate narrowing of the right C4-5 intervertebral foramen is noted. Moderately severe narrowing of the left C4-5 intervertebral foramen is noted. C5-6 shows no a mild annular protrusion, broad-based. This does not appear to significantly impinge on the thecal sac. The right intervertebral foramen is patent. The left intervertebral foramen is mildly narrowed by uncovertebral and facet hypertrophy. C6-7 reveals a broad annular bulge without significant narrowing of the spinal canal or thecal sac. Uncovertebral joint hypertrophy and facet hypertrophy are noted bilaterally more prominent on the right. This contributes to moderate narrowing of the right C6-7 intervertebral foramen and mild narrowing of the left C6-7 intervertebral foramen C7-T1 reveals no significant abnormality. Procedure Note Armando Holman MD - 11/29/2020 EXAMINATION: MRI CERVICAL SPINE WO CONTRAST (GENERIC) CLINICAL HISTORY: ORDER IN SCANNED DOCS TECHNIQUE: MRI of the cervical spine performed without intravenous contrastadministration. COMPARISON: Plain radiographs performed on 10/11/2020 FINDINGS: Cervical alignment is normal. 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 Straightening of the cervical lordosis is noted superiorly. Spinal canalshows a generally average diameter. The spinal cord shows normal diameter, contourand signal intensity. The foramen magnum shows no abnormalities. C1-2 articulation is normal. C2-3 disc and spinal canal are normal in appearance. The intervertebralforamina are patent on sagittal and sagittal oblique images. The C3-4 level and mild uncovertebral joint hypertrophy. There isnarrowing of the left C3-4 intervertebral foramen due to uncovertebral joint and facetjoint hypertrophy. C4-5 is a mild disc/osteophyte complex. Uncovertebral joint and facet hypertrophy are noted bilaterally. Moderate narrowing of the right C4-5 intervertebral foramen is noted. Moderately severe narrowing of the leftC4-5 intervertebral foramen is noted. C5-6 shows no a mild annular protrusion, broad-based. This does not appearto significantly impinge on the thecal sac. The right intervertebral foramenis patent. The left intervertebral foramen is mildly narrowed byuncovertebral and facet hypertrophy. C6-7 reveals a broad annular bulge without significant narrowing of thespinal canal or thecal sac. Uncovertebral joint hypertrophy and facet hypertrophyare noted bilaterally more prominent on the right. This contributes tomoderate narrowing of the right C6-7 intervertebral foramen and mild narrowing ofthe left C6-7 intervertebral foramen C7-T1 reveals no significant abnormality. IMPRESSION Mild degenerative changes as described. Thank you for letting us participate in the care of this patient. Forquestions regarding this report, please contact the number below. Radha Mckeon MD IMG MRI ORDERABLES documented in this encounter Visit Diagnoses Diagnosis Cervical radiculopathy Brachial neuritis or radiculitis nos documented in this encounter Care Teams All Around Gear Machine Operator Relationship Specialty Start Date End Date Radha Mckeon MD [address] [place] [address] PCP - General 09/23/10 documented as of this encounter
--- OUTSIDE RECORDS SUMMARY | 2024-07-24 17:26 | XMS_ITS | Encounter Summary ---
Author Organization [facility] Address [facility] [place] [address] Care Team Providers Care Hoop Riveting Machine Operator Name Role Phone Radha Mckeon MD Primary Care Provider [phone] Reason for Referral * Consultation (Routine) - Specialty Diagnoses / Procedures Referred By Becki guillory Referred To Contact Diagnoses Right knee pain, unspecified chronicity S/P revision of total knee, right Cindy, Sera Mills APRN [facility] [place] [address] [place], [place] Referral ID Status Reason Start Date Expiration Date V isits Requested Visits Authorized [id number] Consult, Test & Treat Non PCP 03/28/2020 03/28/2021 3 3 Reason for Visit * Reason Comments Pain Management Knee Pain * Consultation (Routine) - Specialty Diagnoses / Procedures Referred By Becki guillory Referred To Contact [facility] Diagnoses S/P revision of total knee, right Pain - Knee pain / XR 03/05/[address] & CT 04/26/19 & MRI 01/31/[address] [place] [facility] [place] [address] [facility] [place] [place] [address] Referral ID Status Reason Start Date Expiration Date V isits Requested Visits Authorized [id number] Consult, Test & Treat 03/07/2020 03/07/2021 3 3 Encounter Details Date Type Department Care Team (Latest Contact Info) Description 03/28/2020 11:00 AM EDT TH Visit (TeleHealth) [place] [address] 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 [facility] CONS[facility] Date of Consultation: March 28, 2020 I am seeing Mr. Machado at the request of [address] for my opinion and recommendations regarding right knee pain, question if candidate for genicular nerve block(s). Chief Complaint: Chief Complaint Patient presents with ??? Pain Management ??? Knee Pain HPI: Subjective Malik Machado is a 69 y.o. male who presents today for consult for pain management evaluation for genicular nerve block for right knee pain. He states that since he had his right knee revision he has been working with physical therapy and has been able to increase his walking. He is currently walking 3 miles a day and states that he has to keep moving to help with his spine pain. He had multiple surgeries of the spine in and had many injections in his back without benefit. Right knee pain is painful mostly on the front of the knee, when he bends down or picks things up he has severe pain in his right knee cap. He states that the right knee continues to look larger thanthe left but he has no redness of the right knee. He has returned back to physical therapy to work on strengthening exercises. Onset: chronic Since onset pain is improved since surgery Location: Right knee Duration: > 2 years Characteristics: aching and sharp Timing: all day Severity: 8/10 now Average pain in past week: 8/10 Best pain in the past week: 7/10 Worst pain in the past week: 9/10 Aggravating factors: bearing extra weight on the right knee, bending Relieving factors: taking oxycodone as needed-helps a little bit. No benefit with topical cream, has not tried any topical patches myD-H Pain 10/12/2013 VR12 - Physical Summary Component 20.97 VR12 - Mental Component Summary 63.19 MODEMS Satisfaction 33.33 PROCEDURES/SURGERY TYPE DATE BENEFIT NOT TRIALED Right TKA. Dr. Mi. 01/14/2010 Right TKA Revision. Aseptic revision of the patella. Dr. Jauregui. 11/15/2019 EVALUATIONS: TYPE DATE Orthopaedics Dr. Jauregui, [address], [place] Neurosurgery Neurology Rheumatology DIAGNOSTIC STUDIES: XR Knee R- 03/07/2020, 12/25/2019 ACTIVITY LEVEL: Exercise: walking 2 miles Walking downhill is painful Activities that are limited by Pain: bending, [...] file Gets together: Not on file Attends anabaptism service: Not on file Active member of [...] medication ??? Irregular heart beat afib ??? medical terminologist current use of opiate analgesic oxycodone, prescribed [...] CURVED Procedure Date: 01/14/2010 ??? JOINT REPLACEMENT [id number] ??? PACEMAKER IMPLANT loop recorder ??? PRO REVISE KNEE JOINT REPLACE, ALL PARTS Right 11/15/2019 @TOTAL KNEE REVISION ARTHROPLASTY, COMPLETE (WRVU 27.11) performed by Sukhjinder Jauregui MD at [facility] MAIN OR ??? XR JOINT ASPIRATION - LARGE JOINT RIGHT Right 01/02/2019 XR Fluoro Guided Joint Aspiration Large Right 01/02/2019 [facility] RAD XRAY ALLERGIES: Amitriptyline hcl; Atorvastatin; and Flecainide MEDICATIONS: Medications 03/28/20 1048 Medication Sig Taking? fluticasone propionate (FLONASE) 50 mcg/actuation [place], Suspension INSTILL 1SPRAY IN EACH NOSTRIL TWICE A DAY Yes warfarin (Coumadin) 1 mg Tablet Indications: ALTERNATING WITH 2 MG Yes metoprolol succinate XL (Toprol-XL) 100 mg [...] severe pain (7-10) take 20 mg). Yes methocarbamol (ROBAXIN) 750 mg Tablet Take 1 tablet by mouth every 8 hours as needed (muscle spasms). Yes multivitamin with minerals (THERA-M) 9 mg iron-400 mcg Tablet Take 1 tablet by mouth daily. Yes senna-docusate (PERICOLACE) 8.6-50 mg Tablet Take 2 tablets by mouth 2 times daily. Yes lamoTRIgine (LAMICTAL) 25 mg Tablet [...] ORAL) Take 1 tablet by mouth. Yes [place]-3 Fatty Acids-Vitamin E (FISH OIL) 1,000 mg Cap Take 2,000 mg by mouth daily. Yes baclofen (LIORESAL) 10 mg tablet Take 10 mg by mouth nightly as needed. Yes simvastatin (ZOCOR) 10 mg tablet Take 10 mg by mouth nightly. Yes Xarelto 20 mg Tablet TK 1 T PO QD lidocaine (LIDODERM) 5 % Adhesive Patch, Medicated Change 3 patches on the skin daily. Apply 1 patch onto the skin daily. (leave on for 12 hours and remove for 12 hours) Patient not taking: Reported on 03/28/2020 polyethylene glycol (MIRALAX) 17 gram Powder in Packet Take 17 g by mouth 2 times daily. Patient not taking: Reported on 03/28/2020 ROS: Constitutional Denies fevers, chills, or unexpected of weight HEENT Denies new hearing problems, vision problems or dental problems. Cardiovascular Denies chest pain, palpitations, [place], hypertension, heart murmur. Respiratory Denies cough, SOB, [...] rashes, or other skin problems PHYSICAL EXAM: (limited due to telehealth constraints) Ht 182.9 cm (6') Wt 69.9 kg (154 lb) BMI 20.89 kg/m?? Physical Exam Constitutional: General: He is not in acute distress. Appearance: Normal appearance. He is not toxic-appearing. Eyes: General: Right eye: No discharge. Left eye: No discharge. Conjunctiva/sclera: Conjunctivae normal. Pulmonary: Effort: Pulmonary effort is normal. Musculoskeletal: Comments: Pain with right knee ROM. Limited evaluation due to telehealth visit. See picture of right knee below. Neurological: Mental Status: He is alert. Comments: Denies numbness to self palpation of the right knee. Psychiatric: Mood and Affect: Mood normal. RADIOLOGIC DATA: XR R knee 03/07/2020 [...] from the past 2 months ASSESSMENT: Assessment No diagnosis found. 69 yo male s/p right total knee arthroplasty revision- poly swab and patellar revision with Dr. Jordan 11/15/2019. He continues to have severe pain of the right knee over 4 months after this surgery. He has been seen by ANDREE Diaz , ortho, without concern for infection. Referred to discuss genicular nerve block for the right knee. Right knee pain limiting his bending and lifting. He is able to do some walking and wants to return to hiking but has severe pain with going down hills. He has continued to work with physical therapy and is working on strengthening. I feel that he could benefit from right knee genicular nerve block with consideration for radiofrequency ablation. Discussed this procedure at length with patient. He is close to [facility] and would like to have genicular nerve block at this location. Referral placed. Patient also has chronic back pain for which he was seen by Dr. Klein in the distant past. Request referral for back pain with most recent treatment records and imaging be sent by PCP. PLAN: 1) Refer to [facility] for right knee pain/genicular nerve blocks 2) Lidocaine 4% OTC patch 2-3 patches to right knee on for 12 hours and then off for 12 hours 3) Continue Tylenol as needed Referral needed for back pain with separate consult for this issue. Malik Guillory Carter had the opportunity to ask questions and indicated that all questions were answered to his satisfaction. Thank you for the opportunity to participate in Malik Guillory Siapastora's care. Thank you for this referral, ANDREE Majano [facility] DR ORTHOPAEDIC SURGERY [place] [phone]. Total time of telehealth video 37 minutes, total time associated with visit 40 minutes. Sera White, MSN, CANDY PULLER- C, BOILER HELPER Nurse Practitioner [facility] [address] [address] / [facility] documented in this encounter Plan of Treatment Upcoming Encounters Date Type Department Care Team (Late st Contact Info) Description 08/18/2024 11:00 AM EDT Hospital Encounter [place] [address] Arrived 02/22/2025 1:30 PM EDT Appointment H[place]ology [place] [address] 02/22/2025 2:30 PM EDT Office Visit [place] [address] Ellis Childers MD [facility] [place] [address] Felicita Landa APRN [facility] [place] [address] Scheduled Referrals Name Type Priority Associated Diagnoses Orde r Schedule Referral to Pain and Spine Center (Internal only) Outpatient Referral Routine Right knee pain, unspecified chronicity S/P right total knee arthroplasty revision - poly swab and patellar revision Moschetti 11/15/2019 Ordered: 03/28/2020 documented as of this encounter Visit Diagnoses Diagnosis Right knee pain, unspecified chronicity S/P right total knee arthroplasty revision - poly swab and patellar revision Moschetti 11/15/2019 documented in this encounter Care Teams Hoop Riveting Machine Operator Relationship Specialty Start Date End Date Radha Mckeon MD [address] [place] [address] PCP - General 09/23/10 documented as of this encounter
--- OUTSIDE RECORDS SUMMARY | 2024-07-24 17:26 | XMS_ITS | Encounter Summary ---
Author Organization [facility] [place] [address] Care Team Providers Care Gas Leak Inspector Name Role Phone Radha Mckeon MD Primary Care Provider [phone] Reason for Visit * Reason Onset Date Comments Questions 04/16/2020 Encounter Details Date Type Department Care Team (Late st Contact Info) Description 04/16/2020 Telephone Cardiology at [address] [phone] Alla Aguiar RN Questions Social History Tobacco [...] Telephone Encounter - Alla Aguiar RN - 04/17/2020 12:44 PM EDT Spoke with Kike Robb re: needing a note for [facility] clearing pt for his procedure wherehe has an ILR. Per Kike Robb this is not contraindicated and pt may proceed with procedure. Notegenerated and faxed to [facility] @ [phone]. * Telephone Encounter - Alla Aguiar RN - 04/16/2020 3:27 PM EDT TC from litigation claim representative from [facility] re: pt xarelto and upcoming procedures. Pt to have a genicular nerve block and a genicular radiofrequency ablation. The anticoagulant therapy would need to be held 3 days prior to each procedure. Pt PCP is managing pts anticoagulation therapy and the clinic is aware and will reach out to PCP re: anticoagulation management. They did ask if a cardiac device clearance for his ILR could be sent to them in letter form. Will forward to Kike Robb for his follow up and advisement. documented in this encounter Plan of Treatment Upcoming Encounters Date Type Department Care Team (Late st Contact Info) Description 08/18/2024 11:00 AM EDT Hospital Encounter Non-Invasive Cardiology Lab [place] [address] Arrived 02/22/2025 1:30 PM EDT Appointment Hematology and Oncology at [place] [phone] 02/22/2025 2:30 PM EDT Office Visit Hematology and Oncology at [address] Ellis Childers MD [facility] DR HEMATOLOGY [place] [address] Felicita Landa APRN [facility] DR HEMATOLOGY [place] [address] documented as of this encounter Visit Diagnoses Not on filedocumented in this encounter Care Teams Gas Leak Inspector Relationship Specialty Start Date End Date Radha Mckeon MD [address] [place] [address] PCP - General 09/23/10 documented as of this encounter
--- OUTSIDE RECORDS SUMMARY | 2024-07-24 17:26 | XMS_ITS | Encounter Summary ---
Author Organization [facility] [place] [address] Care Team Providers Care Male Infertility Specialist Name Role Phone Radha Mckeon MD Primary Care Provider [phone] Reason for Visit * Reason Onset Date Comments Appointment 10/01/2020 Encounter Details Date Type Department Care Team (Late st Contact Info) Description 10/01/2020 Telephone [place] [phone] Dave Pierce Appointment Social History Tobacco Use Types Packs/Day [...] encounter Miscellaneous Notes * Telephone Encounter - Milady Reilly I - 10/02/2020 1:13 PM EST Scheduled Tele Health * Telephone Encounter - Roanldo Kong - 10/01/2020 5:00 PM EST Patient calls back to provide appropriate fax number as F: [phone] Op note faxed today at his request * Telephone Encounter - EltonDave dye - 10/01/2020 4:53 PM EST Patient calls requesting that the operative note be sent to [facility] physical therapy so they may be able to review the procedure done in November 2019. Patient has resumed physical therapy as he is having some increased in tibia pain and issues with strength. He also inquires as to whether or not he is able to schedule a telehealth visit with [address] PA-C as he is feeling this increase in pain in his tibia and movement within the knee joint that is concerning. He also requested that a copy of the operative note be sent to his home via [employer]. His report was printed, and mailed. Message was sent to the Othopedic scheduling team to arrange the requested telehealth visit. documented in this encounter Plan of Treatment Upcoming Encounters Date Type Department Care Team (Late st Contact Info) Description 08/18/2024 11:00 AM EDT Hospital Encounter [place] [address] Arrived 02/22/2025 1:30 PM EDT Appointment Hematology and Oncology at [place] [phone] 02/22/2025 2:30 PM EDT Office Visit Hematology [place] [phone] Ellis Childers MD [facility] [place] [address] Felicita Landa APRN [facility] [place] [address] documented as of this encounter Visit Diagnoses Not on filedocumented in this encounter Care Teams Male Infertility Specialist Relationship Specialty Start Date End Date Radha Mckeon MD [address] [place] [address] PCP - General 09/23/10 documented as of this encounter
--- OUTSIDE RECORDS SUMMARY | 2024-07-24 17:26 | XMS_ITS | Encounter Summary ---
Author Organization [facility] [place] [address] Care Team Providers Care Price Accuracy Supervisor Name Role Phone Radha Mckeon MD Primary Care Provider [phone] Encounter Details Date Type Department Care Team (Late st Contact Info) Description 09/19/2020 Telephone Cardiology at [address] [address] Marissa Hutchison, RN Social History Tobacco Use Types Packs/Day [...] Miscellaneous Notes * Telephone Encounter - Marissa Hutchison RN - 09/19/2020 10:14 AM EST He called to ask if his ILR showed any events 3-4 days ago there were 2 events where he felt a pause-robles it lasted seconds. I explained there were no events detected by his device. I referenced his settings. This could be PVC's which is an early beat from the lower chamber followed by a pause. -these are not saved as events by his ILR. documented in this encounter Plan of Treatment Upcoming Encounters Date Type Department Care Team (Late st Contact Info) Description 08/18/2024 11:00 AM EDT Hospital Encounter [place] [address] Arrived 02/22/2025 1:30 PM EDT Appointment Hematology [place] [phone] 02/22/2025 2:30 PM EDT Office Visit Hematology [place] [address] Ellis Childers MD [facility] DR HEMATOLOGY [place] [address] Felicita Landa APRN [facility] [address] HEMATOLOGY [place] [address] documented as of this encounter Visit Diagnoses Not on filedocumented in this encounter Care Teams Price Accuracy Supervisor Relationship Specialty Start Date End Date Radha Mckeon MD [address] [place] [address] PCP - General 09/23/10 documented as of this encounter
--- OUTSIDE RECORDS SUMMARY | 2024-07-24 17:26 | XMS_ITS | Encounter Summary ---
Author Organization [facility] [place] [address] Care Team Providers Care Signal Tower Director Name Role Phone Radha Mckeon MD Primary Care Provider [phone] Encounter Details Date Type Department Care Team (Late st Contact Info) Description 10/23/2020 9:30 AM EST TH Visit (TeleHealth) [facility] at [facility] [place] [address] Sera White APRN [facility] [address] Neck pain Social History Tobacco Use Types [...] as of this encounter Progress Notes * Sera White APRN - 10/23/2020 9:30 AM EST [facility] TELEPHONE VISIT Date of Service: October 23, 2020 CC: Neck Pain S: 70 yo male with history of chronic knee pain and chronic back pain. He states that he neck pain for a few months that has gradually been getting worse. States he is having shooting pain to his shoulders. He thinks that he has Thoracic Outlet Syndrome or a brachial injury. Continues to have sharp stabbing pain in his neck that is worse with bending neck forward or bending neck backward. Having pain in his left arm shooting down his left arm. Had a visit with his primary care provider for this issue. Also states he has been dropping things with his left hand more frequently. States that he has pain shooting from his neck to shoulder and middle digits. Attending physical therapy at [facility] for neck pain, tried cervical traction. O: Patient unable to connect to telehealth visit, not able to perform physical exam as was changed to telephone visit A: Neck Pain, left upper extremity pain Reviewed cervical films- mild degenerative disease Discussed with patient that without a physical exam or notes from his PCP on current PE findings I cannot determine if left upper extremity pain is related to his neck pain. Encourage patient to continue physical therapy and home exercise program. P: Continue to follow-up with primary care provider Consider clinic evaluation, left message for Dr. Mckeon that if clinic evaluation was needed can call our clinic to coordinate. Total time of visit 20 minutes to include time spent reviewing films and coordination of care. Sera White, MSN, SENIOR REVENUE ACCOUNTANT- C, SUPERVISOR IN CIRCUIT TESTING Nurse Practitioner [facility] [address] [address] / [email or web address] documented in this encounter Plan of Treatment Upcoming Encounters Date Type Department Care Team (Late st Contact Info) Description 08/18/2024 11:00 AM EDT Hospital Encounter Non-[place] [address] Arrived 02/22/2025 1:30 PM EDT Appointment Hematology [place] [address] 02/22/2025 2:30 PM EDT Office Visit Hematology [place] [address] Ellis Childers MD [facility] DR HEMATOLOGY [place] [address] Felicita Landa APRN [facility] DR HEMATOLOGY [place] [address] documented as of this encounter Visit Diagnoses Diagnosis Neck pain Cervicalgia documented in this encounter Care Teams Signal Tower Director Relationship Specialty Start Date End Date Radha Mckeon MD [address] [place] [address] PCP - General 09/23/10 documented as of this encounter
--- OUTSIDE RECORDS SUMMARY | 2024-07-24 17:26 | XMS_ITS | Encounter Summary ---
Author Organization [facility] [place] [address] Care Team Providers Care Doorshaker Name Role Phone Radha Mckeon MD Primary Care Provider [phone] Reason for Visit * Reason Comments Follow-up R TKA REV 11.15.19 Encounter Details Date Type Department Care Team (Late st Contact Info) Description 04/22/2020 4:00 PM EDT Office [place] [address] Sukhjinder Nowrood MD [facility] [place] [address] S/P right total knee arthroplasty revision - [...] Sign Reading Time Taken Comments Blood Pressure 153/95 04/22/2020 3:57 PM EDT Pulse 61 04/22/2020 3:57 PM EDT Temperature - - Respiratory Rate - - Oxygen Saturation - - Inhaled Oxygen Concentration - - Weight 76.2 kg (168 lb) 04/22/2020 3:57 PM EDT r eported Height 182.9 cm (6') 04/22/2020 3:57 PM EDT Body Mass Index 22.78 04/22/2020 3:57 PM EDT documented in this encounter Progress Notes * Sukhjinder Norwood MD - 04/22/2020 4:00 PM EDT Arthroplasty/Orthopaedic History: 1. Right TKA. Dr. Mi. 01/14/2010. 2. Right TKA Revision. Aseptic revision of the patella. Dr. Norwood. 11/15/2019 HPI: Malik Machado is a very pleasant 69 y.o. year-old male and is now 5 months post right total knee revision The patient has been doing ok. Knee still tight, with occasional shooting and burning pain. Pain different than before surgery. It's better than it was but still by no means pain free. Nofevers, chills, nausea, vomiting, or symptoms of infection. Malik has been ambulating with no assistive device and working with PT. He is currently taking Tylenol, Amitrex, and 7.5mg Oxycodone. Hasn'ttaken an Oxy in a week or so. Hx of multiple spine surgeries leading to chronic back pain. Was on low dose gabapentin in the past but stopped it. Walking 3 miles/day. ROS: Denies: fever, chills, night sweats, nausea, or vomiting BP (!) 153/95 Pulse 61 Ht 182.9 cm (6') Wt 76.2 kg (168 lb) Comment: reported BMI 22.78 kg/m?? Physical Exam: Well-appearing male in no [...] DP:Yes Motor/Sensory: Distal Motor: Normal Distal Sensory: Abnormal - hyperalgesia with any touch of the skin over the knee Quadriceps Strength: 5 X-RAYS: Multiple radiographic views were obtained at my request and reviewed with the patient. X-rays show a well-placed prosthesis with no evidence of fracture, subsidence, loosening, or periprosthetic complication. Questionnaire Responses: [facility] Surgical Postop Visit 11/09/2019 PROMIS-10 [...] - Choose Same Treatment Again - Orthopeadics [facility] Response 11/09/2019 KOOS JR Scores 39.63 Spine [facility] Response 11/09/2019 KOOS JR Scores 39.63 ASSESSMENT/PLAN: Mr. Machado is a 69 y.o. year old male status post right total knee revision. Postoperative course complicated by continued pain with hyperalgesia. Discussed manual desensitization to try and help with his hypersensation. Continue weightbearing as tolerated and working on range of m otion. We will see him back in 9 months for repeat examination. X-rays will be needed at that time.Patient may return to normal activities as his pain and function allow. He'll discuss with pain doctor or PCP about restarting Gabapentin or Lyrica We discussed the appropriate precautions surrounding dental prophylaxis; according to the AAOS Appropriate Use Criteria we do not recommend antibiotic use prior to dental procedures for Malik. If Malik has any changes in health status we recommend he contact our office prior to dental procedures for updated recommendations We also discussed maintaining good foot care and giving prompt attention to any source of infectionthroughout the body including foot ulcers and urinary tract infections. All questions were answered. Signed: SUKHJINDER NORWOOD MD 04/22/2020 documented in this encounter Plan of Treatment Upcoming Encounters Date Type Department Care Team (Late st Contact Info) Description 08/18/2024 11:00 AM EDT Hospital Encounter Non[place] [address] Arrived 02/22/2025 1:30 PM EDT Appointment Hematology [place] [phone] 02/22/2025 2:30 PM EDT Office Visit Hematology [place] [address] Ellis Childers MD [facility] DR HEMATOLOGY [place] [address] Felicita Landa APRN [facility] DR HEMATOLOGY [place] [address] documented as of this encounter Visit Diagnoses Diagnosis S/P right total knee arthroplasty revision - poly swab and patellar revision Shania 11/15/2019 documented in this encounter Care Teams Doorshaker Relationship Specialty Start Date End Date Radha Mckeon MD [address] [place] [address] PCP - General 09/23/10 documented as of this encounter
--- OUTSIDE RECORDS SUMMARY | 2024-07-24 17:26 | XMS_ITS | Encounter Summary ---
[place] [address] Care Team Providers Care Cabinet Mounter Name Role Phone Radha Mckeon MD Primary Care Provider [phone] Reason for Visit * Reason Onset Date Comments Questions 04/11/2020 Encounter Details Date Type Department Care Team (Late st Contact Info) Description 04/11/2020 Telephone [place] [phone] Ronaldo Kong Questions Social History Tobacco Use Types Packs/Day [...] encounter Miscellaneous Notes * Telephone Encounter - Layne Soares RMA - 04/12/2020 10:47 AM EDT Triage Note Subjective: Knee pain/Pain management - pain Clinic [facility] SP Surgeon Role Sukhjinder Jauregui MD Primary [address] PA Physician Weight Control Engineer Librado Pan MD Fellow Procedure Laterality Anesthesia @TOTAL KNEE REVISION ARTHROPLASTY, COMPLETE (WRVU 27.11) Right DOS 11/15/2019 Rajput questions/Assessment: George called to left [address] PA-C know that he went to [facility] Pain clinic and they are asking they he obtain Ortho clearance before he continues with the Pain center. They told him that they felt that his knee was warmer then the other, He reports continued pain andfeels like he needs to be evaluated. I offered him an appt with Dr Jauregui to evaluate his pain. We schd an appt with Dr Jauregui and george is happy with this plan. * Telephone Encounter - Ronaldo Kong - 04/12/2020 10:35 AM EDT LM#1 Returned call to Mr. Machado and notified him per [address] PA-C that if he does not have increased pain or swelling, and there is no presence of demetri cellulitis, then he has no concern for infection and should move ahead with nerve block. Based on our conversation on 04/11/20, Mr. Machado's description of symptoms did not describe the presence of cellulitis. Left number for call back if he had any other questions. * Telephone Encounter - Ronaldo Kong - 04/11/2020 4:34 PM EDT Mr. Machado calls today to report that he was seen in [facility] for an evaluation before injection. The nurse found significant temperature differences between the right and left knee and thought this was concerning. George does not report increase in pain or swelling. He would like to make sure that it is still safe to proceed with his injection, or should he hold off. Mr. Machado agreed to if he was unavailable. Routed to [address] PA-C for review and instruction. documented in this encounter Plan of Treatment Upcoming Encounters Date Type Department Care Team (Late st Contact Info) Description 08/18/2024 11:00 AM EDT Hospital Encounter Non-[place] [address] Arrived 02/22/2025 1:30 PM EDT Appointment Hematology and Oncology at [place] [address] 02/22/2025 2:30 PM EDT Office Visit Hematology [place] [address] Ellis Childers MD [facility] [place] [address] Felicita Landa APRN [facility] [place] [address] documented as of this encounter Visit Diagnoses Not on filedocumented in this encounter Care Teams Cabinet Mounter Relationship Specialty Start Date End Date Radha Mckeon MD [address] [place] [address] PCP - General 09/23/10 documented as of this encounter
--- OUTSIDE RECORDS SUMMARY | 2024-07-24 17:26 | XMS_ITS | Encounter Summary ---
Author Organization [facility] [place] [address] Care Team Providers Care Supervisor Doping Name Role Phone Radha Mckeon MD Primary Care Provider [phone] Encounter Details Date Type Department Care Team (Latest Contact Info) Description 10/07/2020 4:20 PM EST TH Visit (TeleHealth) [place] [address] PA [facility] [place] [address] S/P right total knee arthroplasty revision - [...] as of this encounter Progress Notes * Librado [address] PA - 10/07/2020 4:20 PM EST Arthroplasty/Orthopaedic History: 1.??Right TKA. Dr. Mi. 01/14/2010. 2. Right TKA Revision. Aseptic revision of the patella. Dr. Jauregui. 11/15/2019 I did complete a telehealth, video feed, consultation with Malik Machado, a 70 year old male who is 11 months s/p Right TKA Revision. Overall the patient continues with his activities of daily living, caring for his , home. He is getting a little anxious in terms of care for his as she isgoing to require shoulder surgery. He knows that he will have to work through his back pain and knee pain which is chronic to care of her. Overall, the patient explains he still has pain in his knee.He localizes pain at the top of his incision, and the inside of his knee. Standing, weightbearing activities, ranging his knee does increase the pain. He has attempted Voltaren gel, topical analgesics, anti- inflammatories, he has continued diligently with his physical therapy and exercises. Overallhe still has pain. He describes as different as his pain prior to his revision. Of note, he was able to hike a local mountain on a several mile hike and he did note that he would not of been able to do this prior to his revision surgery. We discussed that his radiographs have been stable thus far si nce his revision. We discussed if he is still having pain, I would recommend seeing him 12-18 months after his revision for a new consultation with x-rays and possible lab work to evaluate for infection. I have a low suspicion for infection, however it would be prudent to repeat his x-rays and evaluation for pain after total joint replacement. He is receptive to the above and he agrees to the above plan. Subjective: Follow up, continued right knee pain Decision Making/Plan: Follow up in 8 weeks with new XR, consider labs Patient verbally consents to this telephone visit and understands that this visit may be billed, similar to a clinic office visit. I provided care to the patient today via telephone call. The total time associated with this visit was 25 minutes. documented in this encounter Plan of Treatment Upcoming Encounters Date Type Department Care Team (Late st Contact Info) Description 08/18/2024 11:00 AM EDT Hospital Encounter Non-[place]vasive [place] [address] Arrived 02/22/2025 1:30 PM EDT Appointment H[place]ology [place] [address] 02/22/2025 2:30 PM EDT Office Visit Hematology [place] [address] Ellis Childers MD [facility] [place] [address] Felicita Landa APRN [facility] [address] [place] [address] documented as of this encounter Visit Diagnoses Diagnosis S/P right total knee arthroplasty revision - poly swab and patellar revision Moschetti 11/15/2019 documented in this encounter Care Teams Supervisor Doping Relationship Specialty Start Date End Date Radha Mckeon MD [address] [place] [address] PCP - General 09/23/10 documented as of this encounter
--- OUTSIDE RECORDS SUMMARY | 2024-07-24 17:26 | XMS_ITS | Encounter Summary ---
[place] [address] Care Team Providers Care Operating Room Nurse Name Role Phone Radha Mckeon MD Primary Care Provider [phone] Reason for Referral * Diagnostic Test (Routine) - Closed Specialty Diagnoses / Procedures Referred By Contac t Referred To Contact Radiology Diagnoses Paroxysmal atrial fibrillation Chest pain, unspecified type Procedures NM Pharmacologic Stress and Rest Myocardial Perfusion Diogo Robb PA [facility] [place] [address] [place] [address] Referral ID Status Reason Start Date Expiration Date V isits Requested Visits Authorized [id number] Closed Specialty Service Requested 06/25/2020 12/26/2021 1 1 * Diagnostic Test (Routine) - Closed Specialty Diagnoses / Procedures Referred By Contac t Referred To Contact Radiology Diagnoses Paroxysmal atrial fibrillation Chest pain, unspecified type Procedures NM Pharmacologic Stress CT Component Diogo Robb PA [facility] [place] [address] [facility] [address] Referral ID Status Reason Start Date Expiration Date V isits Requested Visits Authorized [id number] Closed Specialty Service Requested 06/25/2020 12/26/2021 1 1 Encounter Details Date Type Department Care Team (Late st Contact Info) Description 06/25/2020 3:30 PM EDT Office Visit Cardiology at [address] [address] Diogo Robb PA [facility] [place] [address] Paroxysmal atrial fibrillation; Chest pain, unspecified type Social History Tobacco Use Types [...] Sign Reading Time Taken Comments Blood Pressure 166/82 06/25/2020 3:31 PM EDT Pulse 55 06/25/2020 3:31 PM EDT Temperature - - Respiratory Rate - - Oxygen Saturation 100% 06/25/2020 3:31 PM EDT Inhaled Oxygen Concentration - - Weight 79.8 kg (176 lb) 06/25/2020 3:31 PM EDT Height 182.2 cm (5' 11.75) 06/25/2020 3:31 PM E DT Body Mass Index 24.04 06/25/2020 3:31 PM EDT documented in this encounter Progress Notes * Diogo Robb PA - 06/25/2020 3:30 PM EDT Subjective: Patient ID: Malik Machado is a 70 y.o. male. HPI 70yo man with complex hx including SVT, afib s/p ablation x2, continuing lightheadedness and intermittent sensation of tachycardia without clear correlation with arrythmia. He is currently also followed by pain management, neurology and now hematology(for ITP). As routine ambulatory monitoring, incl yomi Padilla has not been in place during severe symptomatic events, he underwent implantation of a [employer] ILR in April 2018. Though he has continued to have episodes of sensation of lightheadedness and palpitations, the ILR has not demonstrated any correlating arrythmia. Patient Active Problem List Diagnosis ??? A-fib Overview Note: --Recurrent AF --S/P cardioversions x 3 (09/2005, 01/2006, 07/2007). --AF that has resolved spontaneously (12/2006, etc). 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 --Flecainide stopped after 4 doses due to IL/QRS prolongation, 12/2007. --Started on dofetilide 500mcg BID [...] of periodic palpitations 2015. -- Admitted to [facility] 08/27/16, with A. fib at a rate of 112 bpm on metoprolol 100 mg daily/verapamil 180 mg daily; DCCV; metoprolol increased to 150 mg daily; started Eliquis. --Echo 11/2016: EF 58%. --Repeat afib ablation 11/23/2016: Veins still isolated; posterior wall isolation performed, stage IV. ??? Hypertension Overview Note: ??? History of loop recorder Overview Note: [...] --Amitriptyline (palpitations), Lipitor (liver enzyme abnormalities), flecainide (IL/QRS prolongation noted 12/2007). ??? History of surgery [...] IMPLANTS USED: All implants were from the [employer] total knee system. 1. A size [...] and shortness of breath. Cardiovascular: Positive for chest pain. Negative for palpitations and leg swelling. Gastrointestinal: Negative for diarrhea, nausea and vomiting. Genitourinary: Negative for dysuria, frequency and hematuria. Neurological: Positive for light-headedness. Negative for syncope. Hematological: Bruises/bleeds easily. Social History Tobacco Use ??? Smoking status: Former Smoker Packs/day: 2.00 Years: 16.00 Pack years: 32.00 Types: Cigarettes Quit date: 11/09/1982 Years since quittin.6 ??? Smokeless tobacco: Never Used Substance Use Topics ??? Alcohol use: No ??? Drug use: Never Current Outpatient Medications Medication Sig Note Dispense Refill ??? cephALEXin (Keflex) 500 mg Capsule Take 500 mg by mouth 4 times daily. 06/25/2020: 4X Daily PRN ??? acyclovir (ZOVIRAX) 200 mg Capsule 1 capsule. Indications: prn ??? diclofenac (VOLTAREN) 1 % Gel Apply topically Once daily as needed. ??? gabapentin (Neurontin) 300 mg Capsule 3 times daily. Indications: titrating up to 900 mg ??? tamsulosin (Flomax) 0.4 mg Capsule TK 1 C PO QD ??? fluticasone propionate (FLONASE) 50 mcg/actuation [place], Suspension INSTILL 1SPRAY IN EACH NOSTRIL TWICE A DAY ??? Xarelto 20 mg Tablet TK 1 T PO QD ??? metoprolol succinate XL (Toprol-XL) 100 mg Tablet Sustained Release 24 hr Take 1.5 tablets by mouth daily. 135 tablet 3 ??? acetaminophen (TYLENOL) 500 mg Tablet Take 2 tablets by mouth every 6 hours. ??? oxyCODONE (ROXICODONE) 10 mg Tablet Take 1-2 tablets by mouth every 3 hours as needed (mild pain (1-3) take 10 mg, moderate pain (4-6) take 15 mg, severe pain (7-10) take 20 mg). ??? multivitamin with minerals (THERA-M) 9 mg iron-400 mcg Tablet Take 1 tablet by mouth daily. ??? lamoTRIgine (LAMICTAL) 25 mg Tablet Take [...] Take 100 mcg by mouth daily. ??? valACYclovir (VALTREX) 500 mg Tablet Take 500 mg by mouth nightly. 12/25/2019: PRN ??? MULTIVITAMIN W-MINERALS/LUTEIN (CENTRUM SILVER ORAL) Take 1 tablet by mouth. ??? [place]-3 Fatty Acids-Vitamin E (FISH OIL) 1,000 mg Cap Take 2,000 mg by mouth daily. ??? baclofen (LIORESAL) 10 mg tablet Take 10 mg by mouth nightly as needed. ??? simvastatin (ZOCOR) 10 mg tablet Take 10 mg by mouth nightly. ??? BOTOX 200 unit Recon Soln Inject 200 Units as directed Q 3 Months. Objective: Physical Exam Vitals signs and nursing note reviewed. Constitutional: Appearance: Normal appearance. Cardiovascular: Rate and Rhythm: Normal rate and regular rhythm. Pulmonary: Effort: Pulmonary effort is normal. Breath sounds: Normal breath sounds. Musculoskeletal: Normal range of motion. General: No swelling or tenderness. Skin: General: Skin is warm and dry. Neurological: General: No focal deficit present. Mental Status: He is alert and oriented to person, place, and time. Echocardiogram: 11/24/2016 1. Limited follow up study post atrial [...] and systolic function are within normal limits. ILR: 06/25/2020 No events - no AT/AF, no VT, no pauses, no sigificant bradycardia Labs: [facility] [place] 06/06/2020 WBC 5.26; Hgb 15.2; Hct 45% Plt 100 BUN 20; Creat 1.4; K 4.4; Na 141 TSH 1.5 12 lead EK06/25/2020 Sinus bradycardia @ 56; IL 166; QRS 144; QTc 426ms Assessment and Plan: 70yo man with complex arrythmia hx including afib and SVT(on monitoring but unable to elicit @ EPS), s/p afib ablation and redo afib ablation in November 2016 now with continuing intermittent episodesof profound lightheadedness not clearly associated with either tachycardia or bradycardia.??He is maintained on verapamil 120mg and metoprolol 150mg daily. He was last seen by Dr. Gan on 12/02/2017 and later underwent an ILR implant in April 2018. Though he has continued to report intermittent symptoms, there is no correlation with arrythmia. He denies recent syncope. We reviewed his clinical data and discussed the findings at some length. Though he has not had recurrent syncope recently, e[isodic lightheadedness remains of concern to him. He is furloughed from work ans spends much of his time in medical evaluation. We discussed symptoms related to orthostatic hypotension and treatment strategies. He is typically hypertensive rather than hypotensive so I think it less likely that his symptoms are related to orthostasis. In the absence of tachyarrythmias and with hypertension, I am reluctant to decrease his metoprolol or verapamil dose. He describes an intermittent atypical chest discomfort which is not clearly related to his ILR siteas well as various upper extremity sensations of aching and sensory changes. He has a strong familial hx for coronary disease and last had a stress test in 2007(no ischemia). Plan: Nuclear stress test for atypical chest pain(last treadmill nuclear stress 12/2007, last echo 2016) ILR remote follow up in six months EP clinic follow up in one year with 12 lead EKG and ILR interrogation Provider: ANDREE Shelley EP consult attending physician: Nico Corcoran MD ADDENDUM: 07/16/2020 Nuclear stress shows no scar, no evidence of fixed or reversible ischemia; LVEF 60% documented in this encounter Plan of Treatment Upcoming Encounters Date Type Department Care Team (Late st Contact Info) Description 08/18/2024 11:00 AM EDT Hospital Encounter Non-[place] [address] Arrived 02/22/2025 1:30 PM EDT Appointment Hematology [place] [address] 02/22/2025 2:30 PM EDT Office Visit Hematology [place] [address] Ellis Childers MD [facility] [place] [address] Felicita Landa APRN [facility] [place] [address] documented as of this encounter Procedures Procedure Name Priority Date/Time Associated Diagnosis Comments EKG 12-LEAD Routine 06/25/2020 3:41 PM EDT Paroxysmal atrial fibrillation documented in this encounter Results * NM [...] below. Omar Corcoran MD IMG NM ORDERABLES * Nuclear Pharmacologic Stress Cardiology (07/10/2020 12:22 PM EDT) Anatomical Region Laterality Modality Other Omar Corcoran MD CARDIAC SERVICES ORD ERABLES * NM Pharmacologic Stress and Rest Myocardial [...] below. Omar Corcoran MD IMG NM ORDERABLES * EKG 12 Lead (06/25/2020 3:41 PM EDT) Ventricular rate 56 BPM MUSE SYSTEM Atrial Rate 56 BPM MUSE SYSTEM P-R Interval 166 ms MUSE SYSTEM QRS Duration 144 ms MUSE SYSTEM Q-T Interval 442 ms MUSE SYSTEM QTC Calculated (Bezet) 426 ms MUSE SYSTEM Calculated P [place] 40 degrees MUSE SYSTEM Calculated R [place] -50 degrees MUSE SYSTEM Calculated T [place] 3 degrees MUSE SYSTEM INTERPRETATION Sinus bradycardia Right bundle branch block Left anterior fascicular block Bifascicular block Abnormal ECG When compared with ECG of 23-FEB-2018 14:53, No significant change was found Confirmed by Kristen Greenberg ([id number]) on 06/26/2020 8:07:51 PM MUSE SYSTEM 06/25/2020 3:41 PM EDT 06/26/2020 8:07 PM EDT Omar Corcoran MD ECG ORDERABLES MUSE SYSTEM documented in this encounter Visit Diagnoses Diagnosis Paroxysmal atrial fibrillation Atrial fibrillation Chest pain, unspecified type Paroxysmal atrial fibrillation Atrial fibrillation Chest pain, unspecified type Paroxysmal atrial fibrillation Atrial fibrillation Chest pain, unspecified type documented in this encounter Care Teams Operating Room Nurse Relationship Specialty Start Date End Date Radha Mckeon MD [address] [place] [address] PCP - General 09/23/10 documented as of this encounter
--- OUTSIDE RECORDS SUMMARY | 2024-07-24 17:26 | XMS_ITS | Encounter Summary ---
[place] [address] Care Team Providers Care Sports Announcer Name Role Phone Radha Mckeon MD Primary Care Provider [phone] Reason for Referral * Diagnostic Test (Routine) - Closed Specialty Diagnoses / Procedures Referred By Becki guillory Referred To Contact Radiology Diagnoses Paroxysmal atrial fibrillation Chest pain, unspecified type Procedures NM Pharmacologic Stress and Rest Myocardial Perfusion Diogo Robb PA [facility] [place] [address] [place] [address] Referral ID Status Reason Start Date Expiration Date V isits Requested Visits Authorized [id number] Closed Specialty Service Requested 06/25/2020 12/26/2021 1 1 Reason for Visit * Diagnostic Test (Routine) - Closed Specialty Diagnoses / Procedures Referred By Becki guillory Referred To Contact Radiology Diagnoses Paroxysmal atrial fibrillation Chest pain, unspecified type Procedures NM Pharmacologic Stress and Rest Myocardial Perfusion Diogo Robb PA [facility] [place] [address] [facility] [place] [address] Referral ID Status Reason Start Date Expiration Date V isits Requested Visits Authorized [id number] Closed Specialty Service Requested 06/25/2020 12/26/2021 1 1 Encounter Details Date Type Department Care Team (Latest Contact Info) Description 07/10/2020 10:26 AM EDT Hospital Encounter [place] [address] Omar Corcoran MD [facility] [place] [address] Paroxysmal atrial fibrillation; Chest pain, [...] QD 04/23/2020 fluticasone propionate (FLONASE) 50 mcg/actuation [place], Suspension INSTILL 1SPRAY IN EACH NOSTRIL TWICE [...] AM EDT Hospital Encounter Non-[place]vasive [place] [address] Arrived 02/22/2025 1:30 PM EDT Appointment Hematology [place] [phone] 02/22/2025 2:30 PM EDT Office Visit Hematology [place] [phone] Ellis Childers MD [facility] HEMATOLOGY [place] [address] Felicita Landa APRN [facility] [place]Y [place] [address] documented as of this encounter Procedures Procedure Name Priority Date/Time Associated Diagnosis Comments NM PHARMACOLOGIC STRESS AND REST MYOCARDIAL PERFUSION Routine 07/10/2020 12:17 PM EDT Paroxysmal atrial fibrillation Chest pain, unspecified type STRESS TEST SCAN 07/10/2020 12:0 0 AM EDT documented in this encounter Results * NM Pharmacologic Stress and Rest Myocardial [...] the number below. ? Electronically signed by: Henry Vance [facility] ([phone]), at 07/10/2020 2:29 PM Narrative 07/10/2020 2:29 PM EDT EXAMINATION: NM [...] contact the number below. Electronically signed by: Henry Vance [facility]([phone]), at 07/10/2020 2:29 PM Omar Corcoran MD [facility] [place] ORDERABLES * SCAN DOC: STRESS TEST (07/10/2020 12:00 AM EDT) Anatomical Region Laterality Modality Nuclear Medicine Narrative 07/10/2020 12:00 AM EDT Ordered by an unspecified provider. Scanning Provider MEDIA MGR SCAN EXT O RDR/RSLT documented in this encounter Visit Diagnoses Diagnosis Paroxysmal atrial fibrillation Atrial fibrillation Chest pain, unspecified type documented in this encounter Administered Medications Inactive Administered Medications - up to 3 most recent administrations Medication Order MAR Action Action Date Dose Rate Site technetium (Tc-99m) sestamibi injection 0-30 mCi 0-30 mCi, Intravenous, ONCE PRN, 1 dose, Starting on Wed07/10/20 at 1044, Until Wed07/10/20 at 1040, Per Protocol, Radiology Contrast, Routine Given 07/10/2020 10:40 AM EDT 8 mCi documented in this encounter Care Teams Sports Announcer Relationship Specialty Start Date End Date Radha Mckeon MD [address] [place], [place] [address] PCP - General 09/23/10 documented as of this encounter
--- OUTSIDE RECORDS SUMMARY | 2024-07-24 17:27 | XMS_ITS | Encounter Summary ---
Author Organization [facility] [place] [address] Care Team Providers Care Protective Clothing Issuer Name Role Phone Radha Mckeon MD Primary Care Provider [phone] Reason for Visit * Reason Comments Pre-op Exam right knee revision Encounter Details Date Type Department Care Team (Late st Contact Info) Description 11/09/2019 11:00 AM EST Office [place] [address] Sukhjinder Jauregui MD [facility] [address] ORTHOPAEDIC [place] [address] Chronic pain of right knee Social History Tobacco Use Types Packs/Day Years [...] as of this encounter Progress Notes * Sukhjinder Jauregui MD - 11/09/2019 11:00 AM EST Arthroplasty/Orthopaedic History: 1. Right TKA. Dr. Mi. 01/14/2010. 2. Right knee surgery 1966 This note is recorded by Sarina Dill RN acting as a scribe for Dr. Bradley Jauregui. PREOPERATIVE VISIT Interval History: Malik Machado is a pleasant 69 y.o. year old male with a history of severe osteoarthritis of the right knee being seen today to discuss a RIGHT total knee arthroplasty revision. His history and physical exam were reviewed in detail. His history in regards to his knee was once again discussed and is outlined in a previous note. He states the knee pain and disability is worse since their previous visit. They have reviewed their options and at this point are expressing a desire to proceed with surgery. He does not endorse a history of DVT/PE or clotting Physical Exam: Exam is previously documented and is essentially unchanged. Range of motion is 0-95o. Inspection of his skin on the operative leg demonstrates no skin breakdown. Significant Medical Comorbidities Patient Active Problem List Diagnosis Code ??? Chronic back pain, causing disability M54.9, G89.29 ??? A-fib I48.91 ??? Hypertension I10 ??? 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 S/P knee replacement Z96.659 ??? Adverse drug effects T50.905A ??? History of surgery Z98.890 ??? Lightheadedness R42 ??? 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 Pain of right lower extremity M79.604 ??? Debility R53.81 VITALS: BP Readings from Last 1 Encounters: 05/29/19 135/80 Pulse Readings from Last 1 Encounters: 05/29/19 62 There is no height or weight on file to calculate BMI. Relevant Lab Studies Lab Results Component Value Date WBC 5.7 12/13/2018 HGB 14.0 12/13/2018 HCT 41.7 12/13/2018 PLATELET 100 (L) 12/13/2018 CREATININE 0.92 11/24/2016 BUN 14 11/24/2016 NA 143 11/24/2016 K 4.3 11/24/2016 CRP 0.8 12/13/2018 SEDRATE 38 (H) 12/13/2018 INR 1.0 11/23/2016 No results for input(s): HA1C in the last 7068 hours. Questionnaire Response [facility] Surgical Preop Visit 11/09/2019 PROMIS-10 General Health Very Good PROMIS-10 Quality of Life Good PROMIS-10 Physical Health Good PROMIS-10 Mental Health Very Good PROMIS-10 Social Activity Very Good PROMIS-10 Everyday Activities Moderately PROMIS-10 Pain 8 PROMIS-10 Fatigue Moderate PROMIS-10 Social Roles Good PROMIS-10 Anxious or Depressed Rarely PROMIS PHYSICAL SCORE (range 16-68) 37.4 PROMIS MENTAL SCORE (range 21-68) 50.8 Treatments Tried Weight loss, Brace, Acetaminophen (e.g. Tylenol), Narcotics/opiods (Percocet, codeine, hydrocodone), Injection of steroids or cortisone, Prior surgery for this problem KOOS JR Scores 39.63 TKA Grade 8 Pain in other KNEE Severe Back pain at this moment Fairly severe Health Literacy Extremely Assessment and Plan: This is a pleasant 69 y.o. year-old male who presents for a preoperative appointment today for RIGHT knee OA failed TKA. I had a long discussion with him regarding the risks and benefits of total knee arthroplasty revision. I indicated that in my opinion, this is the treatment option most likely torestore a more normal, pain-free level of function and that we have exhausted reasonable non-operative alternatives. I used total knee implants to demonstrate how I perform the procedure and all of their questions were answered. Mr. Machado expressed a desire to pursue this option. We then discussed in great detail the risks associated with the proposed surgery. These included but were not limited to: bleeding (which may or may not require transfusion), infection, deep venous thrombosis, pulmonary embolus, prosthetic failure, loosening, prosthetic fracture, femur, tibia or patella fracture, dislocation, leg-length inequality, persistent pain, medical complications (including cardiac, respiratory and neurologic complications), anaesthetic complications, and . The patient seemed to understand the nature of this procedure's risks. We also discussed the likely benefit of improved stride length, improved range of motion, decreased pain, decreased need for pain medications and decrease functional limitations. The patient is aware that it would take on average of one to two days in the hospital, followed by approximately 12-18 months to full rehabilitation. I did review the history and physical today which says the patient is cleared for surgery and has no specific recommendations for further testing. I reviewed the labs and did not identify anything that would warrant surgical delay. We discussed DNR status and he is a Full Code We reviewed options for postoperative DVT prophylaxis, based on AAOS guidelines. We discussed the pros and cons of different anticoagulants in terms of effectiveness and clot / embolus preventions vs. risks of bleeding and wound complications. We also reviewed their preferences regarding use of blood products and confirmed that while we would endeavor to minimize the risks of needing any transfusions, if circumstances were such that one ormore were indeed required, he would NOT refuse a blood transfusion. No flowsheet data found. Malik Machado will be prescribed a prescription opioid for the treatment of acute post-operative pain related to Orthopedic surgery. Malik Machado will be advised to take the smallest dose possibleto control their pain and as their pain improves to take smaller doses and increase the time between doses. In addition to this medication, non-opioid medications will be prescribed for adjunct treatment of their pain. Non-pharmacological treatment such as ice, elevation and activity modification will be recommended as appropriate. The Acute Opioid Therapy Informed Consent form has been completed and sent to medical records for scanning to chart. We discussed with them the possible discharge scenarios including going home versus needing to go to a rehab facility depending on how well their mobility progresses post-operatively. TJA Clotting and Bleeding Assessment Genetic predisposition or history of DVT or PE: No Hypercoaguable state?: No History of bleeding disorder?: No GI bleed or history of hemorrhagic stroke within the past 2 years: No Patient on lifelong anticoagulant for other reasons: Yes, for AF Discharge anticoagulation plan: Other (comment)(currently on eloquis for a-fib) Infection Prevention Patient demonstrated appropriate skin integrity/infection knowledge level after instructions provided: Yes Patient demonstrated appropriate dental prophylaxis knowledge level after instructions provided: Yes Patient demonstrated appropriate understanding of pre-op chlorhexideine wash and mupirocin ointmentuse after instructions provided: Yes General Assessment Total joint preparedness for surgery: Received binder Patient understands when to call the office pre-op and post-op: Verbalizes understanding Assistive device(s) used pre-op: Standard walker, Straight cane Patient currently on narcotics: Yes Patient has narcotic agreement signed: No Prep for Surgery Advance Directive: Has one (on file in eD-H) Recommend referral to Patient Financial Services: No Living arrangement: Mobile home Home layout: One level Number of stairs within home: 5 Who will provide post-op care and support: and alevism Who will provide transportation home: bottle booth attendant Patient's desired discharge disposition: home with VNA Top 3 nursing choice facilities: ([facility], [facility]) VNA preference: n/a Outpatient PT preference: [facility] [place] Discharge barriers and challenges: is ill Will the patient require VNA services post-op: Yes; the patient/caregivers were provided with a list of VNA's which serve their preferred geographic location and they were educated about their right to choose where referrals are placed. Selection: [place]: No preference Any remaining questions were solicited from the patient and answered. Mr. Machado wishes to proceedaccordingly and informed consent was subsequently obtained for a RIGHT total knee arthroplasty revision. Will assess patella as likely loose. Will potentially leave unresurfaced if too thin, reviewed withpatient. Will assess all implants Will talk with PCP about pain management. Currently on Oxy PRN. Taking a few times a month for spine pain. Expedited Discharge Candidate?: No Seeing Dr. Crockett later today We discussed using Celebrex while in house. We discussed using Naprosyn for 6 weeks after surgery for post-operative pain management PRN. I ensured that the patient has the needed samples of hibiclens wash to use both the night before and the morning of the anticipated surgery. I have personally evaluated the patient and agree with the above note as recorded by TORREY Wong MD 11/09/2019 The below has been copied from a prior note: Dr. Jauregui only * Aniya Dill RN - 11/09/2019 11:00 AM EST Track Repair Laborer called patient's PCP and left a message with department's call back phone number to discuss pain medication plan following patient's upcoming right knee revision with Dr. Jauregui. Awaiting return phone call from patient's PCP. documented in this encounter Plan of Treatment Upcoming Encounters Date Type Department Care Team (Late st Contact Info) Description 08/18/2024 11:00 AM EDT Hospital Encounter [place] [address] Arrived 02/22/2025 1:30 PM EDT Appointment Hematology [place] [address] 02/22/2025 2:30 PM EDT Office Visit Hematology [place] [address] Ellis Childers MD [facility] HEMATOLOGY [place] [address] Felicita Landa APRN [facility] HEMATOLOGY [place] [address] documented as of this encounter Visit Diagnoses Diagnosis Chronic pain of right knee documented in this encounter Care Teams Protective Clothing Issuer Relationship Specialty Start Date End Date Radha Mckeon MD [address] [place] [address] PCP - General 09/23/10 documented as of this encounter
--- OUTSIDE RECORDS SUMMARY | 2024-07-24 17:27 | XMS_ITS | Encounter Summary ---
Author Organization [facility] [place] [address] Care Team Providers Care Account Executive Metalworking Name Role Phone Radha Mckeon MD Primary Care Provider [phone] Reason for Referral * Physical Therapy (Routine) - Specialty Diagnoses / Procedures Referred By Becki guillory Referred To Contact Physical Therapy Diagnoses Failure of total knee replacement, initial encounter Sukhjinder Jauregui MD [facility] [place] [address] Referral ID Status Reason Start Date Expiration Date V isits Requested Visits Authorized [id number] Evaluate and Treat 10/18/2019 04/15/2020 20 20 * Physical Therapy (Routine) - Specialty Diagnoses / Procedures Referred By Becki guillory Referred To Contact Physical Therapy Diagnoses Status post right knee replacement Sukhjinder Jauregui MD [facility] [place] [address] Referral ID Status Reason Start Date Expiration Date V isits Requested Visits Authorized [id number] Evaluate and Treat 10/18/2019 04/15/2020 20 20 Reason for Visit * Reason Onset Date Comments Physical Therapy 10/17/2019 Encounter Details Date Type Department Care Team (Late st Contact Info) Description 10/17/2019 Telephone [place] [address] Sukhjinder Jauregui MD [facility] [place] [address] Physical Therapy Social History Tobacco Use Types Packs/Day Years Used Date Smoking Tobacco: Former Cigarettes 2 16 1 - 08/13/1983 Smokeless Tobacco: Never Alcohol Use Standard Drinks/Week Comments No 0 (1 standard drink = 0.6 oz pur e alcohol) Sex and Gender Information Value Date Recorded Sex Assigned at Not on file Gender Identity Not on file Sexual Orientation Not on file documented as of this encounter Miscellaneous Notes * Telephone Encounter - Ronaldo Kong - 10/18/2019 1:02 PM EST Mr. Hogan called back and would also like a PT order sent to [facility] for after hissurgery. This was done today. * Addendum Note - Ronaldo Kong - 10/18/2019 11:15 AM ESTAddended by: RONALDO KONG on: 10/18/2019 11:15 AM Modules accepted: Orders, SmartSet * Telephone Encounter - Ronaldo Kong - 10/18/2019 11:14 AM EST New orders for PT faxed to [facility] with pt demographics per PT request. * Telephone Encounter - Valerio Irizarry - 10/18/2019 10:20 AM EST Yoko calls to verify which knee are they doing the PT for? Also if he is going to need post revision PT they will need that order now as well to get him booked because they are booking 3- 4 weeks right now. Please resend orders with demographics and protocols and verify which knee this is for. Please fax to [phone] Yoko can be reached at [phone] * Telephone Encounter - Ronaldo Kong - 10/18/2019 7:57 AM EST Pt referral generated and faxed via [employer] on 10/18/19 @ ~8:00AM to [facility] outpatient PT per Dr. Jauregui's order. * Telephone Encounter - Ronaldo Kong - 10/17/2019 8:46 AM EST Mr. Machado left a message on the PT line asking to have PT prior to surgery at [facility]. F: [phone] Routed to Dr. Jauregui for instruction documented in this encounter Plan of Treatment Upcoming Encounters Date Type Department Care Team (Late st Contact Info) Description 08/18/2024 11:00 AM EDT Hospital Encounter Non-[place] [address] Arrived 02/22/2025 1:30 PM EDT Appointment Hematology [place] [phone] 02/22/2025 2:30 PM EDT Office Visit Hematology [place] [address] Ellis Childers MD [facility] [address] [place] [address] Felicita Landa APRN [facility] [address] [place] [address] Scheduled Referrals Name Type Priority Associated Diagnoses Orde r Schedule Referral to Physical Therapy Outpatient Referral Routine Status post right knee replacement Ordered: 10/18/2019 Referral to Physical Therapy Outpatient Referral Routine Failure of total knee replacement, initial encounter Ordered: 10/18/2019 documented as of this encounter Visit Diagnoses Diagnosis Failure of total knee replacement, initial encounter Status post right knee replacement documented in this encounter Care Teams Account Executive Metalworking Relationship Specialty Start Date End Date Radha Mckeon MD [address] [place] [address] PCP - General 09/23/10 documented as of this encounter
--- OUTSIDE RECORDS SUMMARY | 2024-07-24 17:27 | XMS_ITS | Encounter Summary ---
Author Organization [facility] [place] [address] Care Team Providers Care Human Resource Analyst Name Role Phone Radha Mckeon MD Primary Care Provider [phone] Encounter Details Date Type Department Care Team (Late st Contact Info) Description 11/13/2019 Telephone [place] [phone] [place] [address] Social History Tobacco Use Types Packs/Day Years [...] encounter Miscellaneous Notes * Telephone Encounter - Shruthi Best MSW - 11/13/2019 3:39 PM EST Office of Care Management Initial Assessment OSBALDO Seo reviewed record and discussed patient with Care Team. Source of Information: Mr. Machado Introduced self/reviewed role; services accepted. Reason for Hospitalization: TKA revision Past Medical History: Diagnosis Date ??? Antiplatelet or antithrombotic long-term use apixaban ??? Chronic back pain greater than 3 months duration ??? Chronic pain spine, has had 3 spine surgeries ??? High blood pressure controlled with medication ??? Hypothyroid treated with medication ??? Irregular heart beat afib ??? retirement current use of opiate analgesic oxycodone, prescribed by PCP ??? Migraine ??? Thrombocytopenia - chronic 12/16/2012 ??? Thrombocytopenia - chronic 12/16/2012 Hospitalizations Within the Past 30 Days: none Anticipated Length Of Stay (If known): 24-48 hrs Current Decision-Making Capacity: alert and oriented x 4 intact Advance Care Planning: completed Current Coping/Education/Information Needs: patient very on top of details and checking in, agreed that he was mildly anxious but denied it was impacting him Current Functional Ability: monitor pending surgery Functional Status Prior to Admission: independent in ADLs and IADLs Home Environment: lives with his partner in a small mobile home in [facility]. No room for tub bench or raised toilet seat he says. Significant other has o2 and and struggles with her own health issues. Social & Family Supports/Community Resources: Very active with his [employer] and Application Systems Architect has agreedto be supportive but otherwise Mr. Machado is concerned that he has no family or live in help. He does have A sister in the worst case Behavioral Health History: none noted Substance Use/Abuse: no concerns noted Other Pertinent/Service Specific Information: n/a Health/Prescription Coverage: Primary Insurance: Medicare Secondary Insurance: [place] Prescription Coverage: [place] Preferred Pharmacy: Jose Hanson [facility] Other: none Primary Care Provider: Radha Mckeon MD [phone] Patient/Caregiver Goals of Treatment: symptom relief Potential Needs for Transition of Care: Rehab/SNF: prefers [facility] or in the unlikely event he qualifies for SNF, [facility] Health: No preference amenable to any VNA DME: does not have any. 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 Assessment: Very pleasant gentleman doing his best to prepare for surgery and recovery. Aware he may not qualify for rehab. Has been in touch with Sera from [facility]. Will benefit from reassurance and reinforcement. Plan: monitor for dc to [facility] vs home w partner/VNA/friends from [employer]. Will request referrals in early. A member of the Care Management team will continue to monitor progress, follow for continuity of care and assist with transition of care planning. OSBALDO Seo Pager: [phone] documented in this encounter Plan of Treatment Upcoming Encounters Date Type Department Care Team (Late st Contact Info) Description 08/18/2024 11:00 AM EDT Hospital Encounter Non-Invasive Cardiology Lab [place] [phone] Arrived 02/22/2025 1:30 PM EDT Appointment Hematology and Oncology at [address] 02/22/2025 2:30 PM EDT Office Visit Hematology and Oncology at [place] [address] Ellis Childers MD [facility] [address] H[place] [address] Felicita Landa APRN [facility] [address] [place] [address] documented as of this encounter Visit Diagnoses Not on filedocumented in this encounter Care Teams Human Resource Analyst Relationship Specialty Start Date End Date Radha Mckeon MD [address] [place] [address] PCP - General 09/23/10 documented as of this encounter
--- OUTSIDE RECORDS SUMMARY | 2024-07-24 17:27 | XMS_ITS | Encounter Summary ---
Author Organization [facility] [place] [address] Care Team Providers Care Tafe Registrar Name Role Phone Radha Mckeon MD Primary Care Provider [phone] Reason for Visit * Reason Onset Date Comments Pre Procedure Call 08/24/2019 Encounter Details Date Type Department Care Team (Late st Contact Info) Description 08/24/2019 Tele[place] [address] Sukhjinder Jauregui MD [facility] [address] [place] [address] Pre Procedure Call Social History Tobacco Use [...] encounter Miscellaneous Notes * Telephone Encounter - Janeth Castaneda - 08/28/2019 1:09 PM EDT Patient called back to schedule appointment, please call him back * Telephone Encounter - Mariya Dolan - 08/24/2019 10:34 AM EDT I called and left a message for patient to call [phone] directly and schedule surgery with Dr. ESPARZA. documented in this encounter Plan of Treatment Upcoming Encounters Date Type Department Care Team (Late st Contact Info) Description 08/18/2024 11:00 AM EDT Hospital Encounter [place] [address] Arrived 02/22/2025 1:30 PM EDT Appointment Hematology [place] [address] 02/22/2025 2:30 PM EDT Office Visit Hematology and Oncology at [address] Ellis Childers MD [facility] [address] [place] [address] Felicita Landa APRN [facility] [place] [address] documented as of this encounter Visit Diagnoses Not on filedocumented in this encounter Care Teams Tafe Registrar Relationship Specialty Start Date End Date Radha Mckeon MD [address] [place] [address] PCP - General 09/23/10 documented as of this encounter
--- OUTSIDE RECORDS SUMMARY | 2024-07-24 17:27 | XMS_ITS | Encounter Summary ---
Author Organization [facility] [place] [address] Care Team Providers Care Offset Press Operator Name Role Phone Radha Mckeon MD Primary Care Provider [phone] Encounter Details Date Type Department Care Team (Latest Contact Info) Description 11/09/2019 12:20 PM EST Clinical [place] [id number] Pain of right lower extremity Social History Tobacco Use Types Packs/Day [...] Sign Reading Time Taken Comments Blood Pressure 138/72 11/09/2019 12:52 PM EST Pulse 62 11/09/2019 12:52 PM EST Temperature - - Respiratory Rate - - Oxygen Saturation 96% 11/09/2019 12:52 PM EST Inhaled Oxygen Concentration - - Weight 68.5 kg (151 lb) 11/09/2019 12:52 PM EST Height 182.9 cm (6') 11/09/2019 12:52 PM EST Body Mass Index 20.48 11/09/2019 12:52 PM EST documented in this encounter Progress Notes * Christina Saini RN - 11/09/2019 12:20 PM EST PAT questionnaire reviewed with patient while in Pre Admission testing. Pt has tolerated anesthesiain the past. Pre-operative instruction booklet reviewed. Patient verbalizes a good understanding ofall information reviewed. Pt has loop recorder. PLAN: Testing: Type and screen, other labs, EKG order . In basket message to Dr Cruz. Per Gil doesn't need EKG. Special medication instructions: Ruddy pt reports he will hold 5 days preop . See phone note 11-08-19. Clearfast 1 bottle given to patient with instructions to drink 3 hours prior to surgery. Procedure date: 11-15-19 Dr Jauregui Pt does report 30# wt loss over 6-7 months unintentional. He does say he was doing a lot of walkingand eating only one meal per day, also states having some night sweats. Encouraged pt to discuss with Dr Cruz. documented in this encounter Plan of Treatment Upcoming Encounters Date Type Department Care Team (Late st Contact Info) Description 08/18/2024 11:00 AM EDT Hospital Encounter Non-In[place] [address] Arrived 02/22/2025 1:30 PM EDT Appointment Hematology [place] [phone] 02/22/2025 2:30 PM EDT Office Visit Hematology [place] [phone] Ellis Childers MD [facility] [place] [address] Felicita Landa APRN [facility] [place] [address] Pending Results Name Type Priority Associated Diagnoses Date /Time Type and Screen Future [place] [facility] [place] Lab Routine Pain of right lower extremity 11/09/2019 2:09 PM EST Scheduled Orders Name Type Priority Associated Diagnoses Orde r Schedule Type and Screen Future [place], [facility] [place] [place] Lab Routine Pain of right lower extremity Expected: 11/09/2019, Expires: 05/10/2020 documented as of this encounter Visit Diagnoses Diagnosis Pain of right lower extremity documented in this encounter Care Teams Offset Press Operator Relationship Specialty Start Date End Date Radha Mckeon MD [address] [place] [address] PCP - General 09/23/10 documented as of this encounter
--- OUTSIDE RECORDS SUMMARY | 2024-07-24 17:27 | XMS_ITS | Encounter Summary ---
Author Organization [facility] Address [place] [address] Care Team Providers Care Factory Maintenance Technician Name Role Phone Radha Mckeon MD Primary Care Provider [phone] Reason for Visit * Auth/Cert Specialty Diagnoses / Procedures Referred By Becki guillory Referred To Contact Diagnoses failed TKA - loose patella Procedures PRO REVISE KNEE JOINT REPLACE, ALL PARTS @TOTAL KNEE REVISION ARTHROPLASTY, COMPLETE (WRVU 27.11) MODIFIER AML FEMORAL STEM DEPUY MODIFIER TC3 FIXED MODULAR DEPUY MODIFIER TC3 ROTATING PLATFORM DEPUY Referral ID Status Reason Start Date Expiration Date Visits Re quested Visits Authorized [id number] 1 1 Encounter Details Date Type Department Care Team (Latest Contact Info) Description 11/15/2019 11:07 AM EST - 11/17/2019 1:59 PM EST Hospital Encounter 3 [place] [id number] Sukhjinder Jauregui MD [facility] [place] [address] Discharge Disposition: Swing Bed Social History Tobacco Use Types Packs/Day Years [...] Sign Reading Time Taken Comments Blood Pressure 120/68 11/17/2019 7:57 AM EST Pulse 65 11/17/2019 3:24 AM EST Temperature 36.6 ??C (97.9 ??F) 11/17/2019 7:57 AM ES T Respiratory Rate 15 11/17/2019 7:57 AM EST Oxygen Saturation 98% 11/17/2019 7:57 AM EST Inhaled Oxygen Concentration - - Weight - - Height - - Body Mass Index - - documented in this encounter Discharge Summaries * Janae Antonio, BODY MAN - 11/15/2019 2:56 PM EST Images from the original note were not included. Discharge Summary Patient Name: Malik Machado Patient Age: 69 y.o. Language: [place] Citizen Race: White Ethnicity: Not nor Admit date: 11/15/2019 Discharge date and time: 11/17/2019 Attending Physician: Sukhjinder Jauregui MD Discharge Physician: Sukhjinder Jauregui MD Follow-up Recommendations for Providers: Taper narcotics as able. See discharge instructions for additional details. Future Appointments Date Time Provider Department Center 12/25/2019 12:00 PM [facility] DX ROOM 3 Xray [facility] Rad 12/25/2019 1:00 PM Sukhjinder Jauregui MD [facility] ORTH 3C [facility] Inpatient Provider Contact Information: Sukhjinder Jauregui MD Orthopedics: [phone] After hours and weekends, call [facility] Medtronics Technician, , and have the Orthopedic resident paged. Discharge Diagnoses (Hospital Problems) and Secondary Diagnoses (Chronic Problems): Active Hospital Problems Diagnosis ??? S/P right total knee arthroplasty revision - poly swab and patellar revision Shania 11/15/2019 ??? Postoperative anemia due to acute blood loss Resolved Hospital Problems No resolved problems to display. Active Non-Hospital Problems Diagnosis ??? A-fib ??? Hypertension ??? History of loop recorder ??? Thrombopenia ??? Essential hypertension ??? Paroxysmal atrial fibrillation ??? Failed total knee arthroplasty ??? Pain of right lower extremity ??? Debility ??? Lightheadedness ??? Adverse drug effects ??? History of surgery ??? S/P knee replacement ??? RBBB (right bundle branch block with left anterior fascicular block) ??? Chronic back pain, causing disability Operations/Major Procedures: 11/15/2019 Surgeon(s) and Role: * Sukhjinder Jauregui MD - Primary * Librado Pan MD - Fellow * Librado Way PA - Physician Aviation Safety Technician Procedure(s): RIGHT TOTAL KNEE REVISION ARTHROPLASTY, COMPLETE MODIFIER TC3 ROTATING PLATFORM Netskope[employer]Y Intraoperative Findings: No gross evidence of infection was noted. The knee was aspirated prior to the arthrotomy and 5 ml of clear straw colored fluid was removed. The cell count was not returned bythe end of the case. The femur and tibia were both well fixed. The poly component was removed and an extensive synovectomy was performed. The poly was exchanged and the knee was stable on exam at theend for the case throughout the flexion arc. Range of motion with the arthrotomy closed was 110o. Cultures were taken from the fluid and sent for Ortho extended 14 day incubation. ?? History of Presentation: Malik Machado is a 69 y.o. male who presents with right knee pain with overlying lumbar radiculopathy making diagnosis difficult. Nuclear medicine scan demonstrate concern for patellar button loosening as well as increased signal in the tibial component. CT scan demonstrates cystic changes surrounding the patellar button. After discussing treatment options it was felt that the only remaining option was surgical. A detailed conversation regarding the risks and benefits of knee REVISION arthroplasty was had with the patient. The risks discussed included but were not limited to: bleeding (whichmay or may not require transfusion), infection, damage to nerves or blood vessels, deep venous thrombosis, pulmonary embolus, prosthetic failure, loosening, prosthetic fracture, femur patella or tibia fracture, persistent pain, need for future surgery, medical complications (including cardiac, respiratory and neurologic complications), anesthetic complications, and . Subsequent to this conver sation, all of the patient???s questions were answered in great detail and informed consent was obtained for a right total knee arthroplasty revision. He received preoperative medical clearance and was felt optimized for surgery Hospital Course: The patient was admitted via Same Day Surgery for the above operation. DVT prophylaxis: Resume usual Eliquis (2.5 mg bid X 72 hours then resume 5 mg bid with 9 pm dose on 11/18/2019). Patient began rehab on POD#1 w/ weight bearing as tolerated of right leg remembering to use protection at all times for balance and protection. The patient was voiding spontaneously without difficulty. The right kneesilver Mepilex dressing to remain in place 7 days, was inspected on POD#2 and was dry and intact. Pain was well controlled with oral pain medications after adjustments were made. Patient did not have a bowel movement prior to discharge but was passing flatus and taking PO without difficulty. Prior to discharge the patient's hemoglobin was 9.5 down from 12.8 pre-op on 11/09/2019, indicating hemoglobin drop associated with anemia from a combination of acute blood loss from surgery and hemodilution as expected. The patient was monitored with no intervention warranted. By POD#2 the patient was medically stable and was cleared for safe discharge to rehab. Of Note: The patient stated he has chronic back pain but was not on chronic opioids. He received one prescription for 7 days prior to surgery from his PCP. Vital Signs at Discharge: Weight: Wt Readings from Last 1 Encounters: 11/09/19 68.5 kg (151 lb) Height: Ht Readings from Last 1 Encounters: 11/09/19 182.9 cm (6') HC: HC Readings from Last 1 Encounters: No data found for HC BMI: There is no height or weight on file to calculate BMI. Last value Range last 24 hrs Temperature Temp: 36.6 ??C (97.9 ??F) Temp: [36.4 ??C (97.5 ??F)-36.6 ??C (97.9 ??F)] Heart Rate Heart Rate: 65 Heart Rate: [63-65] Blood Pressure BP: 120/68 BP: (117-154)/(63-76) Respiratory Rate Resp: 15 Resp: [15-18] SpO2 SpO2: 98 % SpO2: [97 %-100 %] Functional and Cognitive Status: Patient mobilizing with assistance and FWW, cognitively intact at baseline mental status at time of discharge. Important Lab Data: Last 3 wbc, hgb, hct plt Recent Labs 11/17/19 0415 11/16/19 0407 11/09/19 1409 WBC 5.4 8.1 3.8* HGB 9.5* 10.4* 12.8* HCT 28.8* 31.9* 38.2* PLATELET 69* 72* 105* Last 3 Lytes Recent Labs 11/17/19 0415 11/16/19 0407 11/09/19 1409 NA 137 134* 140 K 4.4 4.2 4.5 CL 105 103 105 CO2 26 25 26 BUN 18 17 19 CREATININE 1.15 0.83 1.03 Studies: None new this admission. Pending Studies and Lab Data at Discharge: None Transfusions: No Discharge Conditions/Prognosis: Stable, awake, and alert. Mobilizing as noted above, pain controlled on oral medications. Discharge to: Rehab [facility] [address] [place] [id number] Updated Allergies/ADRs: Allergies Allergen Reactions ??? Amitriptyline Hcl Palpitations ??? Atorvastatin Other (See Comments) Adverse effect caused liver enzyme abnormalitiies ??? Flecainide Other (See Comments) Adverse effect caused MN and QRS prolongation Immunizations Given this Hospitalization: Immunization History Administered Date(s) Administered ??? Influenza Vaccine, Whole 08/01/2007, 08/01/2009 ??? Pneumococcal Polyvalent 23 12/10/2007 Discharge Medications: Your Medications New Medications Dose Details gabapentin 300 mg Cap Commonly known as: Neurontin Take 1 capsule by mouth nightly for 28 days. Take for 4 weeks after surgery. 300 mg Refills: 0 lidocaine 5 % Ptmd Commonly known as: LIDODERM Change 3 patches on the skin daily. Apply 1 patch onto the skin daily. (leave on for 12 hours and remove for 12 hours) 3 patch Refills: 0 methocarbamol 750 mg Tab Commonly known as: ROBAXIN Take 1 tablet by mouth every 8 hours as needed (muscle spasms). 750 mg Refills: 0 multivitamin with minerals 9 mg iron-400 mcg Tab Commonly known as: THERA-M Take 1 tablet by mouth daily. Start taking on: November 18, 2019 1 tablet Refills: 0 polyethylene glycol 17 gram Pwpk Commonly known as: Miralax Take 17 g by mouth 2 times daily. 17 g Refills: 0 senna-docusate 8.6-50 mg Tab Commonly known as: Pericolace Take 2 tablets by mouth 2 times daily. 2 tablet Refills: 0 Continued medications with new dosing Dose Details acetaminophen 500 mg Tab Commonly known as: Tylenol Take 2 tablets by mouth every 6 hours. What changed: ?? when to take this ?? reasons to take this 1,000 mg Refills: 0 * apixaban 2.5 mg Tab Commonly known as: Eliquis Take 1 tablet by mouth 2 times daily for 2 doses. Starting with 2100 dose on 11/18, increase dose tousual 5 mg bid What changed: ?? medication strength ?? how much to take ?? when to take this ?? additional instructions 2.5 mg Refills: 0 * apixaban 5 mg Tab Commonly known as: Eliquis Take 1 tablet by mouth 2 times daily. START AT 2100 ON 11/18/2019 Start taking on: November 18, 2019 What changed: You were already taking a medication with the same name, and this prescription was added. Make sure you understand how and when to take each. 5 mg Refills: 0 oxyCODONE 10 mg Tab Commonly known as: ROXICODONE Take 1-2 tablets by mouth every 3 hours as needed (mild pain (1-3) take 10 mg, moderate pain (4-6) take 15 mg, severe pain (7-10) take 20 mg). What changed: ?? medication strength ?? how much to take ?? when to take this ?? reasons to take this 10-20 mg Refills: 0 verapamil SR 120 mg Tbsr Commonly known as: Calan-SR Take 1 tablet by mouth daily. What changed: when to take this 120 mg Quantity: 90 tablet Refills: 3 * This list has 2 medication(s) that are the same as other medications prescribed for you. Read thedirections carefully, and ask your doctor or other care provider to review them with you. Continued medications, unchanged Dose Details baclofen 10 mg Tab Commonly known as: Lioresal Take 10 mg by mouth nightly as needed. 10 mg Refills: 0 Botox 200 unit Solr Inject 200 Units as directed Q 3 Months. Generic drug: OnabotulinumtoxinA 200 Units Refills: 0 CENTRUM SILVER ORAL Take 1 tablet by mouth. 1 tablet Refills: 0 Fish Oil 1,000 mg Cap Take 2,000 mg by mouth daily. Generic drug: fish oil-omega-3 fatty acids with vitamin E 2,000 mg Refills: 0 lamoTRIgine 25 mg Tab Commonly known as: LaMICtal Take 50 mg by mouth 2 times daily. 50 mg Refills: 0 metoprolol succinate XL 100 mg Tablet sr Commonly known as: Toprol-XL take 1 and 1/2 tablets by mouth daily Quantity: 135 tablet Refills: 3 omeprazole 20 mg Cpdr Commonly known as: PriLOSEC Take 20 mg by mouth 2 times daily. 20 mg Refills: 0 simvastatin 10 mg Tab Commonly [...] dose: 200 mg 100 mg Refills: 0 Synthroid 100 mcg Tab Take 100 mcg by mouth daily. Generic drug: levothyroxine 100 mcg Refills: 0 Triamcinolone Acetonide 0.025 % Lotn Apply topically as needed. Refills: 0 valACYclovir 500 mg Tab Commonly known as: Valtrex Take 500 mg by mouth nightly. 500 mg Refills: 0 STOPPED Medications acyclovir 200 mg Cap Commonly known as: ZOVIRAX amoxicillin 875 mg Tab Commonly known as: AMOXIL predniSONE 20 mg Tab Commonly known as: Deltasone Voltaren 1 % Gel Generic drug: diclofenac Smoking Status at Discharge: Social History Tobacco Use Smoking Status Former Smoker ??? Packs/day: 2.00 ??? Years: 16.00 ??? Pack years: 32.00 ??? Types: Cigarettes ??? Last attempt to quit: 11/09/1982 ??? Years since quittin.0 Smokeless Tobacco Never Used Instructions for Rehab Providers or PCP: 1. Anticoagulation: Eliquis - 2.5 mg bid through morning 11/18 dose. At 2100 11/18/2019, esume usual 5 mg bid. Continue indefinitely as before surgery. 2. Activity: Full weight bearing as tolerated using walker/crutches at all times for balance and protection. 3. Diet: Regular but increase intake of fluids and fiber while on narcotic pain meds. 4. Silvana/sutures: No external silvana or sutures inplace. Sutures are internal and will be absorbed over time. 5. Dressing (Mepilex): Remove operative dressing 7 days from surgery (11/22/2019). When it is removed can leave the incision open to air or cover it with a light dressing (using the Tubifast to hold the dressing in place). If +++ drainage and it is before 11/22/2019, remove the operative dressing andreplace it with dry sterile gauze covered with Tubifast to hold the dressing in place. Continue with daily dressing changes (and as needed) until the drainage stops, then remove the dressing and leave the incision open to air or lightly covered. 6. Shower (Mepilex): Yes but pat the dressing lightly dry. DO NOT submerge the incision. 7. Aggressive bowel regimen = LBM 11/15/2019. 8. Physical Therapy/Occupational therapy: twice a day every day. 9. DO NOT place a pillow behind the knee - encourage extension of the operated knee by placing pillow under the heel or lower leg or placing the pillow lengthwise along the leg. 10. Wean narcotics as able. Instructions Given to Patient at Discharge: Patient Instructions Activity: 1. Your weight-bearing status is - weight bearing as tolerated of right leg. 2. Remember to use a walker or crutches at all times for balance and protection. Your physical therapist may progress you to using a cane when appropriate. 3. Flexion AND extension are important to work on at home. You should NOT place a pillow under youroperative knee. To help with extension you can place a pillow under your heel or lower leg or placed lengthwise along the operative leg. Again DO NOT place a pillow under the operated knee for comfort. Anticoagulation: Eliquis - You are being discharged on your usual apixaban (Eliquis) by mouth twicea day. You will take 2.5 mg twice daily through 11/18 at 9 am. On 11/18 at 9 pm you will resume your usual 5 mg twice daily. Continue this indefinitely unless you are told otherwise by your Primary Care Provider or Orthopedic surgeon. Diet: Resume your usual diet but increase your intake of fluids and fiber while you are on narcoticpain meds to prevent constipation. Driving: None until you are cleared to do so by your Orthopedic surgeon. You should not drive whileyou are on narcotic pain meds as they can affect your judgment and reaction time. Call your surgeonwith any questions/concerns. Medications: 1. The pain medication you are on can cause constipation so increase your intake of fluids and fiber while you are on them. The stool softener, Pericolace, that has been prescribed can also be taken to facilitate a bowel movement. You can also take an itgo-imk-ysuhfmb medication, Miralax if needed to combat constipation. 2. If you need a renewal on your narcotic pain medication, you need to give the Orthopedic clinic enough time to process your request. This can take up to three days, so plan accordingly. 3. Continue acetaminophen (Tylenol) 1,000mg every 8 hours around the clock until 11/25/2019 (for tendays after your surgery). This can be effective in controlling pain along with your other medications. After that you can take Tylenol as needed per package insert. Do not take more than 3,000mg of acetaminophen in a 24 hour period. 4. You have been discharged on a short acting narcotic, oxycodone. You will be on this medication for a limited period of time only. Take the smallest dose possible to control your pain. As your painimproves take smaller, less frequent doses. You may break the tablet to achieve a smaller dose. Shower (internal sutures): 1. You can shower but remember your activity limitations and always have a chair available for balance and protection. DO NOT submerge the dressing/incision. 2. (Mepilex) Do not let water run over the operative dressing. If it becomes wet lightly pat the dressing dry. DO NOT submerge the incision. When this operative dressing is removed you can let water gently run over the incision. Wound (Mepilex): 1. You do NOT have any external silvana or sutures in place. Your sutures are internal and will be absorbed over time. 2. You have a Mepilex dressing in place. Do not lift the edge of the Mepilex dressing to inspect the incision, it will not re-adhere. Remove your operative dressing 7 days after your surgery (11/22/2019). When it is removed you can leave the incision open to air or cover it with a light dressing. Some patients have an additional item called Milka on their skin. If you have this it will appear as a mesh dressing directly over the incision. Please leave this in place until your follow up with orthopedics. 3. If you have lots of drainage when you get home (and it is before 11/22/2019), remove the operative dressing and replace it with dry sterile gauze. Continue with daily dressing changes (and as needed) until the drainage stops, then remove the dressing and leave the incision open to air or lightly covered. Misc: Remember that ICE and elevation are very important after surgery to help decrease swelling and control pain. Use ICE for 20-30 minutes at a time and keep your leg elevated as much as possible. Call your doctor ([phone]) if you develop: 1. Fever greater than 100.5 2. Severe nausea or vomiting 3. Increasing pain that is not controlled by pain medications 4. Increasing redness, swelling, or drainage from incisions 5. Change in sensation FOLLOW-UP APPOINTMENTS: 1. You will have follow-up appointments at [facility] as indicated below in Future Appointment and Orders. 2. You will need to have x-rays prior to your follow-up appointment on 12/25/2019. Please come to Radiology, desk 3T, 1 hour BEFORE that appointment for those x-rays. Future Appointments Date Time Provider Department Center 12/25/2019 12:00 PM [facility] DX ROOM 3 Xray [facility] Rad 12/25/2019 1:00 PM Sukhjinder Jauregui MD [facility] ORTH 3C [facility] If you have questions or concerns: Wednesday through Wednesday, 8 AM - 5 PM, please call Dr. Sukhjinder Jauregui MD's office at . If it is after 5 PM, the weekend, or holidays, please call and ask to speak with theOrthopedic resident on-call. General Instructions None Future Appointments and Orders Future Appointments and Orders Future Appointments Provider Department Dept Phone 12/25/2019 12:00 PM [facility] ROOM 3 XRay at [facility] Arrive at: [facility] [phone] Please go to [facility] ([place] Location). 12/25/2019 1:00 PM Sukhjinder Jauregui MD Orthopaedics at [facility] Arrive at: [facility] [phone] Primary Care Provider: Radha Mckeon MD [phone] Discharge References/Attachments None documented in this encounter Discharge Instructions * Patient Instructions* Janae Antonio, BODY MAN - 11/15/2019 2:58 PM EST Activity: 1. Your weight-bearing status is - weight bearing as tolerated of right leg. 2. Remember to use a walker or crutches at all times for balance and protection. Your physical therapist may progress you to using a cane when appropriate. 3. Flexion AND extension are important to work on at home. You should NOT place a pillow under youroperative knee. To help with extension you can place a pillow under your heel or lower leg or placed lengthwise along the operative leg. Again DO NOT place a pillow under the operated knee for comfort. Anticoagulation: Eliquis - You are being discharged on your usual apixaban (Eliquis) by mouth twicea day. You will take 2.5 mg twice daily through 11/18 at 9 am. On 11/18 at 9 pm you will resume your usual 5 mg twice daily. Continue this indefinitely unless you are told otherwise by your Primary Care Provider or Orthopedic surgeon. Diet: Resume your usual diet but increase your intake of fluids and fiber while you are on narcoticpain meds to prevent constipation. Driving: None until you are cleared to do so by your Orthopedic surgeon. You should not drive whileyou are on narcotic pain meds as they can affect your judgment and reaction time. Call your surgeonwith any questions/concerns. Medications: 1. The pain medication you are on can cause constipation so increase your intake of fluids and fiber while you are on them. The stool softener, Pericolace, that has been prescribed can also be taken to facilitate a bowel movement. You can also take an ovqa-hwq-aiojkfl medication, Miralax if needed to combat constipation. 2. If you need a renewal on your narcotic pain medication, you need to give the Orthopedic clinic enough time to process your request. This can take up to three days, so plan accordingly. 3. Continue acetaminophen (Tylenol) 1,000mg every 8 hours around the clock until 11/25/2019 (for tendays after your surgery). This can be effective in controlling pain along with your other medications. After that you can take Tylenol as needed per package insert. Do not take more than 3,000mg of acetaminophen in a 24 hour period. 4. You have been discharged on a short acting narcotic, oxycodone. You will be on this medication for a limited period of time only. Take the smallest dose possible to control your pain. As your painimproves take smaller, less frequent doses. You may break the tablet to achieve a smaller dose. Shower (internal sutures): 1. You can shower but remember your activity limitations and always have a chair available for balance and protection. DO NOT submerge the dressing/incision. 2. (Mepilex) Do not let water run over the operative dressing. If it becomes wet lightly pat the dressing dry. DO NOT submerge the incision. When this operative dressing is removed you can let water gently run over the incision. Wound (Mepilex): 1. You do NOT have any external silvana or sutures in place. Your sutures are internal and will be absorbed over time. 2. You have a Mepilex dressing in place. Do not lift the edge of the Mepilex dressing to inspect the incision, it will not re-adhere. Remove your operative dressing 7 days after your surgery (11/22/2019). When it is removed you can leave the incision open to air or cover it with a light dressing. Some patients have an additional item called Prineo on their skin. If you have this it will appear as a mesh dressing directly over the incision. Please leave this in place until your follow up with orthopedics. 3. If you have lots of drainage when you get home (and it is before 11/22/2019), remove the operative dressing and replace it with dry sterile gauze. Continue with daily dressing changes (and as needed) until the drainage stops, then remove the dressing and leave the incision open to air or lightly covered. Misc: Remember that ICE and elevation are very important after surgery to help decrease swelling and control pain. Use ICE for 20-30 minutes at a time and keep your leg elevated as much as possible. Call your doctor ([phone]) if you develop: 1. Fever greater than 100.5 2. Severe nausea or vomiting 3. Increasing pain that is not controlled by pain medications 4. Increasing redness, swelling, or drainage from incisions 5. Change in sensation FOLLOW-UP APPOINTMENTS: 1. You will have follow-up appointments at [facility] as indicated below in Future Appointment and Orders. 2. You will need to have x-rays prior to your follow-up appointment on 12/25/2019. Please come to Radiology, desk 3T, 1 hour BEFORE that appointment for those x-rays. Future Appointments Date Time Provider Department Center 12/25/2019 12:00 PM [facility] DX ROOM 3 Xray [facility] Rad 12/25/2019 1:00 PM Sukhjinder Jauregui MD [facility] ORTH 3C [facility] If you have questions or concerns: Wednesday through Wednesday, 8 AM - 5 PM, please call Dr. Sukhjinder Jauregui MD's office at . If it is [...] tablet Take 10 mg by mouth nightly. apixaban (ELIQUIS) 2.5 mg Tablet Take 1 tablet by mouth 2 times daily for 2 doses. Starting with 2100 dose on 11/18, increase dose to usual 5 mg bid 11/17/2019 11/18/2019 gabapentin (NEURONTIN) 300 mg Capsule Take 1 capsule by mouth nightly for 28 days. Take for 4 weeks after surgery. 11/17/2019 12/15/2019 acetaminophen (TYLENOL) 500 mg Tablet Take 2 tablets by mouth every 6 hours. 11/17/2019 05/15/2021 apixaban (ELIQUIS) 5 mg Tablet Take 1 tablet by mouth 2 times daily. START AT 2100 ON 11/18/2019 11/18/2019 12/18/2019 oxyCODONE (ROXICODONE) 10 mg Tablet Take 1-2 [...] as of this encounter Progress Notes * Jesse Adkins RN - 11/17/2019 12:58 PM EST Report called to [facility]. All questions answered to their satisfaction. * Deborah Guo - 11/17/2019 11:18 AM EST Office of Care Management/Dry Chain Puller Patient Name: Malik Machado : 1950 Patient has been offered a Swing bed at [facility] arranged for a 1230pm transport. Ambulance will need: Medicare ambulance form completed and signed (MD or Air Pollution Inspector RN/WELL CONTROL INSTRUCTOR) Copy of patient demographics [place] or [place] Out of Hospital DNR/DNI order, if active MD to report to Dr. Tan at [phone]. Please call Nursing Report to [phone], ask for bronze chaser. Info to accompany patient: Narcotic Prescriptions Copies of Medication Administration Records and IV sheets for past 10 days. Plan: Dry Chain Puller will be available to the patient and Air Pollution Inspector-RN and/or Social Workerfor further assistance. Patient will be discharged to: [address] [address] Deborah Guo, Dry Chain Puller * Dilcia Coe RN - 11/17/2019 11:14 AM EST Patient is medically ready for discharge today. Patient accepted bed offer at: [facility] Acute Rehabilitation and Sub-Acute (Swing) Rehab Levels of Care [address] [place] [id number] Transportation: ambulance. Ambulance transportation is medically necessary at discharge related to 2x assist for transfers, severe pain on movement, physical deconditioning, inability to maintain erect seated position due to pain/distance of transport. I have discussed Medicare/Private Insurance reimbursement guidelines for ambulance transport. Patient verbalize understanding of their potential financial obligation and agree with ambulance transport. * Librado Pan MD - 11/17/2019 6:17 AM EST ORTHOPAEDIC SURGERY INPATIENT PROGRESS NOTE ID: Malik Machado SURGERY/ISSUE: Right TKA patella revision and poly swap ATTENDING: .Sukhjinder Jauregui MD 24/S: Notes significant back and neck pain in addition to knee pain. No issues overnight. Patient without c/o. Pain well controlled, denies n/v. Voiding without difficulty. Going to [facility]. O: Temp: [36.4 ??C (97.5 ??F)-36.6 ??C (97.9 ??F)] Heart Rate: [63-65] Resp: [16-18] BP: (117-154)/(63-76) Intake/Output Summary (Last 24 hours) at 11/17/2019 0618 Last data filed at 11/17/2019 0400 Gross per 24 hour Intake 1550 ml Output 1400 ml Net 150 ml Lab Results Component Value Date NA 137 11/17/2019 K 4.4 11/17/2019 CL 105 11/17/2019 CO2 26 11/17/2019 BUN 18 11/17/2019 CREATININE 1.15 11/17/2019 GLUCOSE 100 11/17/2019 GLUCFASTING 105 (H) 11/23/2016 CALCIUM 8.8 11/17/2019 Lab Results Component Value Date WBC 5.4 11/17/2019 HGB 9.5 (L) 11/17/2019 HCT 28.8 (L) 11/17/2019 MCV 96.0 (H) 11/17/2019 PLATELET 69 (L) 11/17/2019 Lab Results Component Value Date INR 1.2 11/09/2019 Recent Labs 11/17/19 0415 GLUCOSE 100 Exam: General: Resting comfortably in bed in NAD, awake/alert, responds to questions appropriately, pleasant affect. CV: Regular rate. Resp: Breathing comfortably RLE: Dressing clean and dry. Sensory intact to light touch in lat fem cut/fem/sural/saph/SP/DP/T distributions. Motor intact to FHL/EHL/TA, knee extension/flexion, hip extension/flexion. Brisk capillary refill distally, foot warm/well-perfused. A/P: Malik Machado is a 69 y.o. male patient s/p Right TKA patella revision and poly swap and recovering well - Chronic pain: Continue current multimodal pain medications - DVT ppx: Eliquis increase from 2.5 mg to 5 mg BID after 72 hours - Pain control: Multimodal orals. - Antibiotics: Completed - Activity: AAT WBAT - Dressings: Meplex - Diet: regular - Dispo: [facility] Librado Pan MD 11/17/2019 * Zia Pope - 11/16/2019 12:25 PM EST Regional Anesthesia Progress Note Date of Encounter: 11/16/2019 Responsible Attending: Terrie Calles Staff / Associate Provider: Zia Pope MD ID: Patient is POD# 1 s/p knee arthroplasty for which the patient received a right adductor canal nerve block for post-operative pain control. Subjective: Today the patient has adequate pain control and at present states pain is 7 out of 10. Patient has been able to tolerate PO analgesics and an oral diet without nausea or vomiting. Patientis without any complaints this morning. Objective: Temp: [34 ??C (93.2 ??F)-36.5 ??C (97.7 ??F)] Heart Rate: [46-67] Resp: [9-18] BP: (116-161)/(66-115) SpO2: [96 %-100 %] Heart Rate from SpO2: [48 bpm-70 bpm] Gen: Patient resting in chair after PT No bruising, erythema, swelling or discharge at insertion site. Sensory: Sensation is intact to cold over anterior thigh Motor: Patient is able to perform straight leg raise No evidence of local anesthetic toxicity Coags: No results found for: INR, PT, PTT Meds: Medication list reviewed Assessment: Peripheral nerve block for post-operative pain control, currently with adequate pain control. Says block worked well and he has noticed that it is wearing off. Block appears to be resolving appropriately. Plan: ?? Continue current management per primary service. ?? Patient was instructed to contact Regional Anesthesia Team ([id number]) for any unresolved sensory or motor deficits. ?? Thank you for the opportunity to have participated in the care of this patient. 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 Roommatemade night difficult as he was loud and was not able to sleep much. No issues overnight. Patient without c/o. Pain well controlled, denies n/v. O: Temp: [34 ??C (93.2 ??F)-36.6 ??C (97.9 ??F)] Heart Rate: [46-68] Resp: [9-18] BP: (116-161)/(65-115) Intake/Output Summary (Last 24 hours) at 11/16/2019 0629 Last data filed at 11/16/2019 0327 Gross per 24 hour Intake 1600 ml Output 1575 ml Net 25 ml Lab Results Component Value Date NA 134 (L) 11/16/2019 K 4.2 11/16/2019 CL 103 11/16/2019 CO2 25 11/16/2019 BUN 17 11/16/2019 CREATININE 0.83 11/16/2019 GLUCOSE 145 11/16/2019 GLUCFASTING 105 (H) 11/23/2016 CALCIUM 8.6 11/16/2019 Lab Results Component Value Date WBC 8.1 11/16/2019 HGB 10.4 (L) 11/16/2019 HCT 31.9 (L) 11/16/2019 MCV 96.4 (H) 11/16/2019 PLATELET 72 (L) 11/16/2019 Lab Results Component Value Date INR 1.2 11/09/2019 Recent Labs 11/16/19 0407 GLUCOSE 145 Exam: General: Resting comfortably in bed in NAD, awake/alert, responds to questions appropriately, pleasant affect. CV: Regular rate. Resp: Breathing comfortably RLE: Dressing clean and dry. Sensory intact to light touch in lat fem cut/fem/sural/saph/SP/DP/T distributions. Motor intact to FHL/EHL/TA, knee extension/flexion, hip extension/flexion. Brisk capillary refill distally, foot warm/well-perfused. A/P: Malik Machado is a 69 y.o. male patient s/p Right TKA patellar revision and poly swap and recovering well - Chronic narcotic dependency: Pain control has been difficult. Increased oxycodone dosing. - DVT ppx: resume home eliquis 2.5 mg bid, increase to 5 mg bid 72 hours post op - Pain control: Multimodal orals. - Antibiotics: Ancef x 24 hours - Activity: AAT WBAT - Dressings: Meplex - Diet: regular - Dispo: likely home today after PT Librado Pan MD 11/16/2019 * Vandana Zuniga, RN - 11/15/2019 6:59 PM EST Pt lethargic since PACU, falling asleep in conversation intermittently. Pt has been able to void small amounts w/ PVR. Low temps as documented, see doc flow- ortho team and life safety RN aware. Warmblankets appliedx2. * Jerzy Pappas MD - 11/15/2019 5:37 PM EST ORTHOPAEDIC SURGERY INPATIENT PROGRESS NOTE Patient Name: aMlik Machado Age: 69 y.o. Surgery/Issue: Right Total Knee Arthroplasty Attending: Dr. Jauregui Date of surgery: 11/15/2019 SUBJECTIVE / INTERVAL HISTORY: Mr. Machado is a pleasant man recovering well from surgery. Denies CP, SOB, nausea, vomiting, weakness. Pain well controlled. Expected numbness s/p spinal block. FOCUSED REVIEW OF SYSTEMS: as above. Active Hospital Problems Diagnosis ??? S/P right total knee arthroplasty revision - poly swab and patellar revision Shania 11/15/2019 Resolved Hospital Problems No resolved problems to display. Active Non-Hospital Problems Diagnosis ??? A-fib ??? Hypertension ??? Thrombopenia ??? Essential hypertension ??? Paroxysmal atrial fibrillation ??? Failed total knee arthroplasty ??? Pain of right lower extremity ??? Debility ??? Lightheadedness ??? Adverse drug effects ??? History of surgery ??? S/P knee replacement ??? RBBB (right bundle branch block with left anterior fascicular block) ??? Chronic back pain, causing disability MEDICATIONS: ??? acyclovir (ZOVIRAX) capsule 200 mg ??? apixaban (Eliquis) tablet 2.5 mg ??? [START ON 11/18/2019] apixaban (Eliquis) tablet 5 mg ??? baclofen (Lioresal) tablet 10 mg ??? lamoTRIgine (LaMICtal) tablet 50 mg ??? levothyroxine (Synthroid) tablet 100 mcg ??? [START ON 11/16/2019] metoprolol succinate XL (Toprol-XL) tablet 100 mg ??? simvastatin (Zocor) tablet 10 mg ??? SUMAtriptan (Imitrex) tablet 100 mg ??? verapamil SR (Calan-SR) tablet 120 mg ??? sodium chloride 0.9 % (flush) flush 5 mL ??? sodium chloride 0.9 % (flush) flush 5-20 mL ??? lidocaine (XYLOCAINE) 10 mg/mL (1 %) injection 3 mg ??? polyethylene glycol (Miralax) packet 17 g ??? senna-docusate (Pericolace) 8.6-50 mg per tablet 2 tablet ??? bisacodyl EC (Dulcolax) tablet 10 mg ??? bisacodyl (Dulcolax) suppository 10 mg ??? acetaminophen (Tylenol) tablet 1,000 mg ??? gabapentin (Neurontin) capsule 600 mg FOLLOWED BY [START ON 11/17/2019] gabapentin (Neurontin) capsule 300 mg ??? ketorolac (TORADOL) injection 15 mg ??? celecoxib (CeleBREX) capsule 200 mg ??? dexamethasone (Decadron) tablet 4 mg ??? pantoprazole EC (Protonix) tablet 20 mg ??? sodium chloride 0.9% infusion ??? ceFAZolin (ANCEF) 2g in dextrose 5% 100 mL ??? oxyCODONE (Roxicodone) tablet 5-15 mg ??? ondansetron (Zofran) tablet 4 mg OR ondansetron (ZOFRAN) injection 4 mg ??? prochlorperazine (Compazine) tablet 10 mg OR prochlorperazine (COMPAZINE) injection 10 mg ??? multivitamin with minerals (THERA-M) tablet 1 tablet ??? cloNIDine injection ??? ketorolac (TORADOL) injection ??? BUpivacaine (PF) (MARCAINE) 0.25 % (2.5 mg/mL) injection ??? sodium chloride 0.9% OBJECTIVE: Temp: [34 ??C (93.2 ??F)-36.6 ??C (97.9 ??F)] Heart Rate: [46-68] Resp: [9-18] BP: (119-161)/(65-115) Intake/Output Summary (Last 24 hours) at 11/15/2019 1737 Last data filed at 11/15/2019 1725 Gross per 24 hour Intake 1050 ml Output 425 ml Net 625 ml There is no height or weight on file to calculate BMI. Exam: General: NAD, awake/alert CV: RRR assessed peripherally Resp: Breathing comfortably on RA RLE: Dressing c/d/i. In cryocuff. Motor intact to EHL, FHL, TA. Sensation intact in foot/calf. Brisk capillary refill distally. 2+ DP/PT Lab Results Component Value Date NA 140 11/09/2019 K 4.5 11/09/2019 CL 105 11/09/2019 CO2 26 11/09/2019 BUN 19 11/09/2019 CREATININE 1.03 11/09/2019 GLUCOSE 95 11/09/2019 GLUCFASTING 105 (H) 11/23/2016 CALCIUM 9.7 11/09/2019 Lab Results Component Value Date WBC 3.8 (L) 11/09/2019 HGB 12.8 (L) 11/09/2019 HCT 38.2 (L) 11/09/2019 MCV 93.6 (H) 11/09/2019 PLATELET 105 (L) 11/09/2019 Lab Results Component Value Date INR 1.2 11/09/2019 ASSESSMENT / PLAN: Malik Machado is a 69 y.o. male Day of Surgery s/p R TKA. Asymptomatic bradycardia post-op that increases to 60s with minimal activity. Low measured temp (34 C), plan to recheck temperature orally and if remains low will obtain rectal temperature. Activity: Activity as tolerated Closure: Subcutaneous and Prineo Dressing: Meplex Drain: None Anticoagulation: Eliquis 2.5 mg for 72 hours, 5 mg thereafter Antibiotics: 24 hours Ancef Consults: PT/OT Dispo:pending Follow-up: as scheduled Jerzy Pappas MD 11/15/2019 Future Appointments Date Time Provider Department Center 12/25/2019 12:00 PM [facility] DX ROOM 3 MH Xray [facility] Rad 12/25/2019 1:00 PM Sukhjinder Jauregui MD [facility] ORTH 3C [facility] * Vandana Zuniga RN - 11/15/2019 4:44 PM EST Pt arrived to floor from PACU after R TK revision. Pt lethargic. Pt oriented x4. Pt reports pain 0/10.Pt denies any chest pain, shortness of breath, dizziness or nausea. Refer to doc flow sheets for full assessment. See doc flow for vitals, temp noted to be low; warm blankets applied. Patient oriented to room with call szymanski within reach. Will continue to monitor. * Tiki Perez RN - 11/15/2019 2:48 PM EST Arrived from OR in bed. Attached to monitors and alarms set appropriately for patient. Right knee dressing CDI with cryocuff in place 1545: report called to TORREY Hubbard documented in this encounter H&P Notes * Librado Pan MD - 11/15/2019 12:04 PM EST Patient Name: Malik Machado Patient Age: 69 y.o. Birthdate: 1950 Admit date: 11/15/2019 Attending Physician: Sukhjinder Jauregui MD 24-Hour Pre-Operative H&P Update Malik Machado 1950 [id number] Patient seen in pre-op holding area today. There are no clinically significant changes to the patient's health since the original H&P. Patient denies any recent fevers or chills. Cardiopulmonary exam deferred to our anesthesia colleagues, appreciate their assistance. The patient is ready to proceed with the planned surgical procedure today. Surgical consent form reviewed. Operative extremity marked. All questions sought and answered. Librado Pan MD 11/15/2019 documented in this encounter Miscellaneous Notes * Plan of Care - Jonathan Viramontes RN - 11/17/2019 5:00 AM EST OUTCOME EVALUATION NOTE: OUTCOME SUMMARY: Patient alert and oriented throughout shift. Vital signs stable. Able to ambulate to bathroom with 1 assist, voiding adequately. Pain medication given with some relief. Silver dressing to right knee clean, dry and intact. Neuro checks remain unchanged. Call szymanski within reach and patient ringing appr opriately. Will continue to monitor. PLAN MOVING FORWARD: Mobilization, discharge, pain control INDIVIDUALIZED FALL PREVENTION INTERVENTIONS: Patient-specific fall risk factors per assessment: Recent surgery, weakness, pain medication Assistance: 1 assist, FWW Supervision: Arms reach Surveillance: Bed locked in low position, call szymanski within reach, purposeful hourly rounding, clutter free environment, bed/chair alarm on Patient-specific fall prevention interventions for sensory deficits provided: Yes CPG GOAL OUTCOME EVALUATION: Continue care plan as documented. * Plan of Care - Elva Foster, PT - 11/16/2019 1:30 PM EST Physical Therapy Evaluation Patient profile: Mr. Machado is a 69 yo M s/p right TKA revision and poly swap on Patient with the following active problems: Past Medical History: Diagnosis Date ??? Antiplatelet or antithrombotic long-term use apixaban ??? Chronic back pain greater than 3 months duration ??? Chronic pain spine, has had 3 spine surgeries ??? High blood pressure controlled with medication ??? Hypothyroid treated with medication ??? Irregular heart beat afib ??? 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 JOINT REPLACEMENT [id number] ??? PACEMAKER IMPLANT loop recorder ??? PRO REVISE KNEE JOINT REPLACE, ALL PARTS Right 11/15/2019 @TOTAL KNEE REVISION ARTHROPLASTY, COMPLETE (WRVU 27.11) performed by Sukhjinder Jauregui MD at [facility] MAIN OR ??? XR JOINT ASPIRATION - LARGE JOINT RIGHT Right 01/02/2019 XR Fluoro Guided Joint Aspiration Large Right 01/02/2019 [facility] RAD XRAY Social History: Patient lives w/ his , who he reports will not be able to provide assistance due to her own medical issues (she requires O2). Home Setup: 5 JL w/ 1 railing, once he is set up on one level w/ the exception of his office whichhas 2 JL (no rail). His bathroom has a walk-in shower w/ a built in seat and he has a high toilet. DME: commode, cane, grab bar outside of shower Baseline ADL/Mobility: Pt reports he has been mobilizing w/ a cane. He reports chronic back pain, difficulty LB dressing. Pt reports he performs ADLs/IADLs independently, handles all cooking and cleaning in the home. He reports that he has had several falls in the past year. ?? Precautions/Special Considerations: WBAT RLE, ARTF, anxiety, pre-medicate Mobility and Positioning Recommendations: ?? Pt. to utilize FWW and CGA for ambulation and transfers with nursing. ?? Please encourage up to chair for meal times as able. ?? Pt encouraged to ambulate frequently with staff, getting into the bathroom for toileting and walking out in the anguiano >/= 3 times daily as able. Subjective: ???I didn't realize it was going to be so hard to walk?? Objective: Pt seen for evaluation today. Pain: 8/10 back pain (pt reports this as his baseline); 6 - 8/10 right knee/ thigh pain with sharp,spasmodic pain intermittently Vital Signs: stable in RA Mental Status: alert, oriented to person, place, and time, anxious and requiring repetitive verbal cues and significantly increased time to follow 1 step commands, especially when walking Vision: glasses for reading Skin: surgical incision, covered with c/d bandage; right knee edema Musculoskeletal: ROM: right knee AROM ~ 15 - 90 Strength: generalized deconditioning; right knee 3/5 Sensation: baseline bilateral foot and hand numbness/tingling Bed Mobility: Supine to Sit: via log roll to left with increased time/ difficulty and supervision Sit to Supine: nt Transfers: Sit to Stand:min assist at FWW with repeated VCs for hand placement/ technique Stand to Sit: min assist and vcs for hand placement/ technique Gait: Distance: ~ 15 ' x 2 with standing break Device used: FWW Level of assist: Constant, repetitive VCs for sequence and technique, CG - min assist Gait mechanics: very slow (~ 20 minutes to go 30 feet), step to pattern, decreased step length, steps to close to walker Stairs: nt Balance: sitting WFL; standing - fair with FWW Therex: 10 reps TKA exercises with instruction Education: patient has been educated on Bed mobility, Transfers, Assistive device/technique, Exercise, Breathing exercises, Safety , Gait , Home program and Discharge planning and needs reinforcement. Patient status, treatment, and mobility recommendations discussed with nursing. Assessment: Malik Machado was seen today for physical therapy evaluation. He presents with baseline high level of pain in his back as well as significant postoperative RLE pain that increases with exercise and activity. He has limitations in overall strength as well as focal RLE weakness, decreased ROM in his right knee and diminished motor planning and ability to follow through with directions,needing continual reinforcement with verbal and manual cues for mobility tasks. These limitations impact his bed mobility, transfers, gait mechanics and speed, stair negotiation and activity tolerance. Mr. Machado is pleasant and motivated to work toward functional mobility tasks but he will need quite a bit of therapy to reach a level of independence and safety for d/c home, as he does not have any assistance at home and, in fact, needs to be able to provide assistance to his in terms of IADLs. The pt would benefit from skilled therapy services while in the hospital to maximize functional abilities. Discharge Recommendations: Anticipated Discharge Disposition: inpatient rehabilitation facility Consult Recommendations: No other consults recommended at this time. Equipment needs: Rolling walker Goals: To be achieved by 11/13/2019: 1. Pt. to demonstrate knowledge of safety limitations and precautions and will appropriately request assistance for functional activities and to mobilize. 2. Pt. to demonstrate understanding of appropriate TKA exercises. 3. Pt. to perform bed mobility independently. 4. Pt. to perform sit to stand transfers with modified independence using a front wheeled walker. 5. Pt. to ambulate 100 feet with modified independence using a a front wheeled walker. 6. Pt. to ambulate up/down 5 step/stairs using one rail and straight cane with modified independence. 7. Family or caregiver to demonstrate understanding of therapeutic interventions to support the care of the patient. Plan: Therapy Frequency: 3-5 times/wk for therapy including gait training, home exercise program, patient/family education, range of motion, stair training, strengthening and transfer training. Patient/family understand and agree with plan as stated above. 2017 PT Evaluation Code Rationale: ?? Diagnosis & Pertinent Co-Morbidities, personal factors, and present illness affecting Plan of Care: (see above); Additional personal factors or co- morbidities that impact plan: ?? Total # of Factors: 0 1-2 3+ x ?? Examination of body system impairments, functional limitations and behaviors, and/or participation restrictions. Addressing 1-2 elements Addressing 3 + elements Addressing 4 + elements x ?? Clinical presentation: See assessment above. Stable/Uncomplicated Evolving/Fluctuating Symptoms Unstable/Unpredictable x ?? Clinical decision making of high complexity based on pt's functional performance as outlined in this evaluation. Time IN / OUT: 10:10/10:55 Total Evaluation Minutes, Physical Therapy: 45(eval and therex) ELVA FOSTER, PT Pager: [phone] Physical Therapy Inpatient Rehabilitation Department * Plan of Care - Dave Becerril OT - 11/16/2019 10:35 AM EST Occupational Therapy Evaluation Patient profile: Malik Machado is a 69 y.o. male admitted on 11/15/2019 for Right TKA patellar revision and poly swap. Past Medical History: Diagnosis Date ??? Antiplatelet [...] CURVED Procedure Date: 01/14/2010 ??? JOINT REPLACEMENT [id number] ??? PACEMAKER IMPLANT loop recorder ??? PRO REVISE KNEE JOINT REPLACE, ALL PARTS Right 11/15/2019 @TOTAL KNEE REVISION ARTHROPLASTY, COMPLETE (WRVU 27.11) performed by Sukhjinder Jauregui MD at [facility] MAIN OR ??? XR JOINT ASPIRATION - LARGE JOINT RIGHT Right 01/02/2019 XR Fluoro Guided Joint Aspiration Large Right 01/02/2019 [facility] RAD XRAY Social History: Patient lives w/ his , who he reports will not be able to provide assistance due to her own medical issues (she requires O2). Home Setup: 5 JL w/ 1 railing, once he is set up on one level w/ the exception of his office whichhas 2 JL. His bathroom has a walk-in shower w/ a built in seat and he has a high toilet. DME: commode, cane, grab bar outside of shower Baseline ADL/Mobility: Pt reports he has been mobilizing w/ a cane. He reports chronic back pain, difficulty LB dressing. Pt reports he performs ADLs/IADLs independently, handles all cooking and cleaning in the home. Precautions/Special Considerations: WBAT RLE, fall, anxiety, pre-medicate Subjective: The walker, the sock puller; this is all bringing back memories.. Objective: Seen today for OT evaluation. Cognitive Status/Behavior: ?? Behavior / Mood: alert and cooperative ?? Alert and oriented to: person, place, time and situation ?? Follows commands: 1 step, 75% of the time, requires increased time and requires repetition ?? Attention: WFL ?? Safety awareness: mild impairment, pt required verbal cues for safety, positioning of walker Vision & Perception: ?? WNL/WFL ?? corrective lenses for reading Communication: WFL Range of motion, strength, coordination: Hand dominance: right Bilateral UEs are grossly within functional limitations LE limitations: RLE decreased strength, ROM, flexibility; LLE grossly WFL for ADL Sensation: pt reports intermittent baseline numbness and tingling in his feet (L>R) at baseline,pt also reports intermittent numbness and tingling in hands w/ use Activities of Daily Living: Self-feeding: independent w/ set up Grooming: pt stood at sink level brushed teeth, combed hair w/ CGA, verbal cues for walker positioning Dressing: pt issued and educated on use of sock-aid and nurse ob, pt performed LB dressing w/ Bernardino, increased time and verbal cues for modified technique w/ use of AE Functional Mobility: Sit to stand: Bernardino w/ FWW, repeated verbal cues for hand placement/technique Ambulation: CGA-Bernardino w/ FWW, pt performed 15ft +15ft w/ standing rest break, pt required another seated rest break prior to grooming tasks at sink level in bathroom Stand to sit: Bernardino w/ FWW, verbal cues for hand placement/kick out of R leg to decrease pain duringtransition Balance: Sitting balance: good Standing balance: fair w/ FWW, CGA-Bernardino Vitals: At Rest With Activity SpO2 94% 96% Heart Rate 68 77 Pain: 6/10-9/10, R knee; pt also reported pain in his lower back as baseline Skin: dressing c/d/i on R knee Education: patient have been educated on Role of occupational therapy/rehabilitation, Transfers, Assistive device/technique, Adaptive equipment training, ADL, Positioning, Safety, Precautions/Protocol, Functional Mobility, Activity pacing/Energy conservation, Home Management, Balance, Recommendations and Discharge planning and verbalizes, demonstrates and needs reinforcement of understanding. Patient status, treatment, and mobility recommendations discussed with nursing. Assessment: Pt has been seen for occupational therapy evaluation. Malik Machado presents with the following performance skill deficits and client factors: increased pain, decreased activity tolerance, decreased flexibility/ROM, decreased strength, decreased sitting/standing balance, precautions/bracing and compromised mobility status. These performance deficits have led to activity limitations and participation restrictions in the following areas of occupation: dressing, bathing, grooming, toileting, transfers/mobility, rest/sleep, home management, work, leisure, driving and community mobility. Pt required a 1 person assist, increased time, and direct verbal cues for all ADL tasks and mobility w/ use of FWW. Pt verbalized familiarity w/ modified techniques/AE; however, required single step cues. Pt would greatly benefit from inpatient rehab stay to progress him to a level of modified functional independence he can manage in his reported home environment. Pt would benefit from furtherinpatient OT interventions to address performance deficits and maximize participation and independence with occupations of daily living. Equipment needs at discharge: FWW Anticipated Discharge Disposition: inpatient rehabilitation facility(Swing?) Other Recommendations: ?? Utilize upright chair position using bed features or transfer to recliner chair as appropriate with 1 person assist w/ FWW, ambulate as tolerated, chair follow w/ rest breaks for longer distances ?? Encourage participation in ADL's by providing set up A on tray table and physical assist only asneeded Other Recommendations: Inpatient Rehabilitation consult Goals: To be achieved by 11/30/19. Pt will perform all aspects of toileting independently. Pt will stand at sink level and perform 2-3 grooming tasks w/ AD and supervision. Pt will perform shower transfer independently w/ aD as needed. Pt will don LB clothing independently w/ AE/AD as needed. Pt perform functional mobility a house hold distance for ADL/IADL task w/ superversion and AD as needed. Plan: OT: Therapy Frequency: 2-4 times/wk Planned OT interventions: Role of occupational therapy/rehabilitation, Transfers, Assistive device/technique, Adaptive equipment training, ADL, Positioning, Safety, Precautions/Protocol, Brace Management, Functional Mobility, Activity pacing/Energy conservation, Home Management, Balance, Recommendations and Discharge planning. Total Evaluation Minutes, Occupational Therapy: 50(eval + sc) 2017 OT Evaluation Code Rationale: ?? Diagnosis & [...] and measurable assessment of functional outcome. Pager: [phone] Dave Becerril OT 11/16/2019 Occupational Therapy Rehabilitation Department * Initial Assessments - Dilcia Coe RN - 11/16/2019 10:00 AM EST Office of Care Management Assessment Medical record reviewed. Plan of care and patient status discussed with direct care RN and/or Care Team. Screening: Present on Admission: ??? S/P right total knee arthroplasty revision - poly swab and patellar revision Moscheamriti 11/15/2019 Patient has not been admitted to a hospital within the last 30 days. Patient receiving hospital care under Inpatient status. Admission order reviewed. 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 Based on discussions with the multi-disciplinary healthcare team, the patient would benefit from inpatient rehabilitation level of care at discharge. ?? I have met with the patient/membership sales representative to discuss discharge planning needs. I have provided the [facility], Office of Care Management letter from the Rollout Manager pertaining to rehab referrals. I have also provided a letter describing our affiliations within the [facility] and educated them about their right to choose where referrals are placed. ?? I reviewed the different levels of rehab including SNF, swing, acute and LTAC with the patient/membership sales representative. ?? The patient/membership sales representative has been provided a list of facilities within their preferred geographic area. ?? I have requested that the patient/membership sales representative provide at least three choices for referral. ?? The patient/membership sales representative have requested referrals to: 1. [facility] Acute Rehabilitation and Sub-Acute (Swing) Rehab Levels of Care [address] [place] [id number] [facility] [address] [place] [address] ? Expected date of discharge: 11/16/2019 Note routed to Dry Chain Puller who will communicate referrals to facilities and provide any required information. industrial health and safety professor/Personal Carer will continue to follow patient???s progress and remain available if situation changes for coordination of care, psychosocial support and/or discharge planning. Dilcia Coe, RN Pager [phone] * Plan of Care - Flory Barraza RN - 11/16/2019 4:22 AM EST Problem: Patient Care Overview Goal: Plan of Care Review Outcome: Ongoing (Interventions Implemented as Appropriate) 11/15/19200411/16/19 7824 Plan of Care Review Progress -- progress toward functional goals as expected Coping/Psychosocial Plan Of Care Reviewed With patient -- OUTCOME EVALUATION NOTE: OUTCOME SUMMARY: Pt A&OX4. Hypothermic at beginning of shift (team aware and life safety aware). Warm blankets and warm PO fluids encouraged. Temperate WNL and VSS on RA. No complaints of chest pain or SOB. Smallepisode of emesis at beginning of shift. Small sips and deep breaths encouraged with positive affect. Dressing to RLE remains CDI. Voiding to toilet w/ 1 assist FWW. Pain adequately controlled (see MAR for meds given). Cryocuff remains on. NV checks remain unchanged (see doc flow). Fluids and abx continued per orders. No other acute events. Will continue to monitor. PLAN MOVING FORWARD: Pain management Abx Mobility Dc planning INDIVIDUALIZED FALL PREVENTION INTERVENTIONS: Patient-specific fall risk factors per assessment: [current deficits]: Hospital environment, generalized weakness, recent surgery, narcotics Assistance [level of assistance required for transfers and ambulation]: 1 assist FWW Supervision [direct monitoring required during toileting and ADLs]: Hands on Surveillance [continuous indirect monitoring]: Masimo, NKE, hourly rounding, bed alarm Patient-specific fall prevention interventions for sensory deficits provided, if applicable: [X] N/A CPG GOAL OUTCOME EVALUATION: * Op Note - Sukhjinder Jauregui MD - 11/15/2019 2:10 PM EST [facility] Operative Note Patient Name: Malik Machado : [id number] MR#: [id number] Case Date: 11/15/2019 Surgeon: Surgeon(s) and Role: * Sukhjinder Jauregui MD - Primary * Librado Pan MD - Fellow * Librado Way PA - Physician Aviation Safety Technician This case was performed with a Physician Aviation Safety Technician as there was no qualified resident available. Librado Pan MD was critical for patient positioning and retraction during the case as well as assisting with closure because no qualified resident was available. Preoperative Diagnosis: Patellar component loosening - right total knee replacement Postoperative Diagnosis: Same Procedure Performed: right Total Knee Arthroplasty Revision - Two Components (CPT 95001) Anesthesia: Spinal, Adductor Canal Block (performed in block area) IVF: 1000 ml of crystaloid Estimated Blood Loss: 300 ml Urine Output: 0 ml Drains: none Specimens removed during surgery: None Surgical Closure: Primary Closure - skin incision is completely closed without any wires, hammad, drains or other devices Complications: None apparent Tourniquet: 0 mmHg for 0 minutes Indications for the Procedure: Mr. Machado is a 69 y.o. year old male who presents with right knee pain with overlying lumbar radiculopathy making diagnosis difficult. Nuclear medicine scan demonstrate concern for patellar button loosening as well as increased signal in the tibial component. CT scan demonstrates cystic changes surrounding the patellar button. After discussing treatment options it was felt that the only remaining option was surgical. A detailed conversation regarding the risks and benefits of knee REVISION arthroplasty was had with the patient. The risks discussed included but were not limited to: bleeding (which may or may not require transfusion), infection, damage to nerves or blood vessels, deep venous thrombosis, pulmonary embolus, prosthetic failure, loosening, prosthetic fracture, femur patella or tibia fracture, persistent pain, need for future surgery, medical complications (including cardiac, respiratory and neurologic complications), anesthetic complications, and . Subsequent to this conversation, all of the patient???s questions were answered in great detail and informed consent was obtained for a right total knee arthroplasty revision. He received preoperative medical clearanceand was felt optimized for surgery. Today, he identified the right knee as the correct operative side. Implants: Poly: DePuy Size 4 x 10 mm Patella: 35mm oval Intraoperative Findings: No gross evidence of infection was noted. The knee was aspirated prior to the arthrotomy and 5 ml of clear straw colored fluid was removed. The cell count was not returned bythe end of the case. The femur and tibia were both well fixed. The poly component was removed and an extensive synovectomy was performed. The poly was exchanged and the knee was stable on exam at theend for the case throughout the flexion arc. Range of motion with the arthrotomy closed was 110o. Procedure: The patient was met in the pre-operative holding area where the appropriate site was marked, 24 hour update performed, and the pre-operative checklist completed. He was then brought to the operating room on a stretcher and transferred to the OR table where the above anesthetic was administered. Veno dynes were applied to the non-operative leg. The operative site was shaved. A non-sterile tourniquet was applied high around the operative leg. A foot post and thigh post were placed to aid in intra-op leg positioning. A clinical time- out was held confirming the correct patient name, MRN, , planned procedure, site, antibiotic start time and agent, and outline of any surgical concerns. All in attendance were in agreement to proceed. Weight based dosing of tranexamic acid was administered prior to making an incision. Skin Preparation: The skin of the lower extremity was prepped using alcohol, chlorhexidine, and Duraprep. The prep was allowed to fully dry and sterile drapes were applied. Surgical Approach: The knee was flexed and the skin was infiltrated with 10cc of 0.25% plain marcaine prior to making the incision. Using a double knife technique the old scar was excised. Hemostasis was obtained usingelectrocautery and full thickness skin flaps were elevated medial and lateral to identify the extensor mechanism. An 18g needle was used to aspirate the knee joint and the fluid was sent for a stat cell count. The arthrotomy site was then infiltrated with the pericapsular mixture consisting of 0.25% Marcaine with epinephrine, 50mcg of clonidine and 30mg of Ketorolac. A medial parapatellar arthrotomy was performed leaving a 2mm cuff of tendon for later repair. Electrocautery was used to cauterize bleeders. A complete synovectomy was performed first on the medial side then on the lateral side. A medial peel was then performed around the tibia to the mid coronal line. Patella: With the knee in extension the patella was everted and inspected. The patella button was noted to be loose. It was removed with a freer elevator and one quarter-inch osteotome without difficulty. There is significant cystic changes surrounding the lug holes. A caliper was used to measure the patella to be 15 mm thick. We elected to take off an additional 2 mm of bone instruments with a saw blade in a freehand technique. The edges of the patella were cleaned of any bone using a rongeur. Femur: The knee was then flexed and the femoral component was inspected. The interfaces between the implant and bone were scrutinized. There were no visible sign of loosening. The anterior flange of the femoral component was then tapped with a bone tamp and a mallet to confirm it was well fixed. Tibia: With the knee flexed a 1/4 inch osteotome and mallet were used to disengage the poly from the tibial tray. The poly was then easily removed. We continued the synovectomy around the tibia circumferentially to aid in exposure. A PCL retractor was then placed behind the tibia and it was subluxed anterior. We continued the synovectomy so that the entire tibial tray could be visualized. The interfacesbetween the implant and bone were scrutinized. There were no visible sign of loosening. The anterior medial aspect of the tibial component was then tapped with a bone tamp and a mallet to confirm it was well fixed. Final Implants: The knee was then copiously irrigated with pulse lavage once again. The patellar implant was openedon the back table. The tibial polyethylene was inserted and impacted into place. The tibia was thenreduced under the femur. We brought the knee into extension one half batch of quickset antibiotic loaded cement was prepared under vacuum suction. The patella was copiously irrigated and dried. Cement was applied to the patella as well as the backside of the component and compressed into place. Cement was allowed to harden. The remaining per-capsular injection was injected into the periosteum andsoft tissues for a total of 50cc. The knee was brought through a final range of motion which demonstrated varus/valgus and anterior/posterior stability with appropriate patella tracking. Closure: The knee was placed in 60 degrees of flexion and the arthrotomy was closed initially with 0 vicryl tacking sutures which was over sewn with a #2 barbed running suture. The deep layers were closed with 0 vicryl. The superficial layers were closed with 2-0 vicryl. The skin was closed with a running 3-0 monocryl. The skin was sealed with skin glue. A sterile Mepilex Ag dressing was applied. A cryocuff was applied. The needle, sponge and instrument counts were correct at the end of the procedure. Attestation: Case Date: 11/15/2019 I performed this procedure without the involvement of a resident. Librado Pan MD 11/15/2019 Post-operative Plan: (avoid IV narcotics) ?? 5-15 mg Oxycodone Q3 hours po PRN ?? For breakthrough pain 15 mg Toradol iv or im q 6 hours (max 4 doses) ?? 1000mg Tylenol po??? q8 hour ?? 600 mg Neurontin po qhs for 2 days followed by 300 mg Neurontin po qhs for 4 weeks (for insomnia) ?? Celebrex 200 mg po q 12 hours while in house with transition to Naprosyn 500mg bid at discharge ?? Dexamethasone 4 mg po q 24 hours for 2 days (if diabetic add SSI) ?? Protonix 20mg qd x 2 weeks (or other PPI) ?? Zofran 4 mg po/iv q 8 hours PRN nausea ?? Encourage voiding q 4 hours. If unable to void bladder scan and encourage to void in 30 minutes.If PVR > 400 then straight cath. ?? Perioperative prophylactic antibiotics for the next 24 hours ?? Weight bearing status of operative extremity: Weight bearing as tolerated ?? Wound closure: Subcuticular absorbable suture with skin glue ?? Dressing changes: Mepilex Silver (Do not change for 7 days then a dry sterile dressing). Prineo skin glue to fall off on it's own. ?? Follow-up Plan: As scheduled prior to surgery (approx. 5 weeks with x-rays) ?? Anticoagulation: ASA 81mg BID for 30 days ?? Any possible barriers to discharge: None ?? Plan for hospital stay: Standard ?? Anticipated Length of Stay: 1-2 days Implant Summary: Implant Name Type Inv. Item Serial No. Preschool Aide Lot No. LRB No. Used Action INSER,SGM,AOX,CVD,SZ4,10 ([id number]) (AutoReq) - [id number] IMPLANTS INSER,SGM,AOX,CVD,SZ4,10 ([id number]) (AutoReq) [email or web address] KARLA [id number] Right 1 Implanted CEMEN,BNE,CMW2,GNTA,20GM ([id number]) - [id number] IMPLANTS CEMEN,BNE,CMW2,GNTA,20GM ([id number]) [employer] KARLA [id number] Right 1 Implanted CHRISTIAN,PFC,SGM,OVL,3PG,SM,35MM ([id number]) (AutoReq) - [id number] IMPLANTS CHRISTIAN,PFC,SGM,OVL,3PG,SM,35MM ([id number]) (AutoReq) [email or web address] KARLA [id number] Right 1 Implanted Attestation: Case Date: 11/15/2019 I performed this procedure without the involvement of a resident. SUKHJINDER JAUREGUI MD 11/15/2019 documented in this encounter Plan of Treatment Upcoming Encounters Date Type Department Care Team (Late st Contact Info) Description 08/18/2024 11:00 AM EDT Hospital Encounter [place] [phone] Arrived 02/22/2025 1:30 PM EDT Appointment Hematology [place] [phone] 02/22/2025 2:30 PM EDT Office Visit [place] [address] Ellis Childers MD [facility] [address] [place] [address] Felicita Landa APRN [facility] [address] [place] [address] documented as of this encounter Procedures Procedure Name Priority Date/Time Associated Diagnosis Comments IMPLANTABLE DEVICES SCAN 11/20/2019 12:00 AM EST HEMOGRAM Routine 11/17/2019 4:15 AM EST DIFFERENTIAL, AUTOMATED Routine 11/17/2019 4:15 AM EST HC VENIPUNCTURE Routine 11/17/2019 4:15 AM EST BASIC METABOLIC PANEL Routine 11/17/2019 4:15 AM EST HEMOGRAM Routine 11/16/2019 4:07 AM EST DIFFERENTIAL, AUTOMATED Routine 11/16/2019 4:07 AM EST HC CBC,PLT & AUTO DIFF Routine 11/16/2019 4:07 AM EST BASIC METABOLIC PANEL Routine 11/16/2019 4:07 AM EST HC BODY FLUID CELL CT W/DIFF STAT 11/15/2019 1:27 PM EST MODIFIER TC3 ROTATING PLATFORM DEPUY 11/15/2019 1:00 PM EST failed TKA - loose patella Revise Knee Joint Replace, All Parts (46660) 11/15/2019 1:00 PM EST failed TKA - loose patella documented in this encounter Results * SCAN DOC: IMPLANTABLE DEVICES (11/20/2019 12:00 AM EST) Narrative 11/20/2019 12:00 AM EST Ordered by an unspecified provider. Scanning Provider MEDIA MGR SCAN EXT O RDR/RSLT * (ABNORMAL) Differential, Automated (11/17/2019 4:15 AM EST) Neutrophil % 69.4 % [facility] Neutrophil Absolute 3.77 1.70 - 6.10 x10(3)/mc L [facility] Lymph % 13.1 % [facility] Lymphocytes Abs 0.7(L) 0.9 - 3.2 x10(3)/ L [facility] Monocyte % 15.8 % [facility] Monocyte Abs 0.9 0.3 - 0.9 x10(3)/mc L [facility] Eos % 0.7 % [facility] Eosinophils Abs 0.0 0.0 - 0.4 x10(3)/ L [facility] Basophil % 0.6 % [facility] Baso Absolute 0.0 0.0 - 0.1 x10(3)/mc L [facility] Immature Gran % 0.40 % [facility] [...] L [facility] Blood specimen (specimen) 11/17/2019 4:15 AM EST 11/17/2019 4:31 AM EST Narrative Resulting Agency Comment Spec In Lab Librado Pan MD HEMATOLOGY ORDERA BLES Performing Organization Address City/[facility]/ZIP Co de Phone Number [facility] [place] [address] * (ABNORMAL) Hemogram (11/17/2019 4:15 AM EST) White Blood Cell 5.4 4.0 - 9.5 x10(3)/mc L [facility] Red Blood Cell 3.00(L) 4.58 - 5.54 x10(6)/mc L [facility] Hemoglobin 9.5(L) 13.7 - 16.5 gm/dL [facility] Hematocrit 28.8(L) 40.5 - 48.5 % [facility] Mean Cell Volume 96.0(H) 82.9 - 93.1 fL [facility] Mean Cell Hemoglobin 31.7 27.5 - 32.1 pg [facility] Mean Cell Hemoglobin Concentration 33.0 32.0 - 35.7 gm/dL [facility] Platelet 69(L) 145 - 357 x10(3)/mc L [facility] RDW Standard Deviation 41.0 36.0 - 45.0 [facility] RDW coefficient of variation 11.9 11.4 - 13.8 % [facility] Mean Platelet Volume 11.9 7.6 - 12.9 fL [facility] NRBC% auto 0.0 % [facility] NRBC Absolute 0.000 0.000 - 0.000 x10(3)/mc L [facility] Blood specimen (specimen) 11/17/2019 4:15 AM EST 11/17/2019 4:31 AM EST Narrative Resulting Agency Comment Spec In Lab Librado Pan MD HEMATOLOGY ORDERA BLES Performing Organization Address City/[facility]/ZIP Co de Phone Number [facility] [place] [address] * Basic Metabolic Panel (non-fasting) (11/17/2019 4:15 AM EST) Glucose 100 65 - 199 mg/dL [facility] Comment:Diabetes: >=200 mg/d L plus symptoms Blood Urea Nitrogen 18 10 - 20 mg/dL [facility] Creatinine 1.15 0.80 - 1.50 mg/dL [facility] [facility] Sodium 137 135 - 145 mmol/L [facility] Potassium 4.4 3.5 - 5.0 mmol/L [facility] Comment: Please note: ??Patients with WBC >100,000 may have falsely elevated Potassium levels. ??For accurate Potassium quantification in these patients send serum separator tube (gold top) for subsequent determinations. ??Contact the Clinical Chemistry Laboratory if there are any questions. Chloride 105 98 - 107 mmol/L [facility] Carbon Dioxide 26 22 - 31 mmol/L [facility] Anion Gap 6 5 - 15 mmol/L [facility] Calcium 8.8 8.5 - 10.5 mg/dL [facility] Est Glomerular Filtration Rate 65 >=60 mL/min/1. 73 m?? [facility] Comment: The eGFR was calculated using the CKD-EPI equation. As with all creatinine based estimates of kidney function, eGFR values calculated with the CKD-EPI equation are not accurate in patients with acute kidney failure, extremes of body mass or the acutely ill. [email or web address] eGFR 76 >=60 mL/min/1. 73 m?? [facility] Comment: The eGFR was calculated using the CKD-EPI equation. As with all creatinine based estimates of kidney function, eGFR values calculated with the CKD-EPI equation are not accurate in patients with acute kidney failure, extremes of body mass or the acutely ill. [email or web address] Blood specimen (specimen) 11/17/2019 4:15 AM EST 11/17/2019 4:31 AM EST Narrative Resulting Agency Comment Spec In Lab Librado Pan MD CHEMISTRY ORDERAB LES [facility] [place] [address] * (ABNORMAL) Differential, Automated (11/16/2019 4:07 AM EST) Neutrophil % 88.9 % [facility] Neutrophil Absolute 7.21(H) 1.70 - 6.10 x10(3)/mc L [facility] Lymph % 3.8 % [facility] Lymphocytes Abs 0.3(L) 0.9 - 3.2 x10(3)/mc L [facility] Monocyte % 6.3 % [facility] Monocyte Abs 0.5 0.3 - 0.9 x10(3)/ L [facility] Eos % 0.0 % [facility] Eosinophils Abs 0.0 0.0 - 0.4 x10(3)/[facility] Basophil % 0.1 % [facility] Baso Absolute 0.0 0.0 - 0.1 x10(3)/mc L [facility] Immature Gran % 0.90 % [facility] Comment: Immature granulocytes(IG's)percentage and absolute count will include metamyelocytes, myelocytes, and promyelocytes. Blood smears from CBCs yielding IG's will be scanned manually for concordance. If this scan disagrees with the automated IG or if promyelocytes are noted, a manual differential will be performed. Immature Gran Absolute 0.07(H) 0.00 - 0.04 x10(3)/mc L [facility] Blood specimen (specimen) 11/16/2019 4:07 AM EST 11/16/2019 4:51 AM EST Narrative Resulting Agency Comment Spec In Lab Librado Pan MD HEMATOLOGY ORDERA BLES Performing Organization Address [facility]/ZIP Co de Phone Number [facility] [place] [address] * (ABNORMAL) Hemogram (11/16/2019 4:07 AM EST) White Blood Cell 8.1 4.0 - 9.5 x10(3)/mc L [facility] Red Blood Cell 3.31(L) 4.58 - 5.54 x10(6)/mc L [facility] Hemoglobin 10.4(L) 13.7 - 16.5 gm/dL [facility] Hematocrit 31.9(L) 40.5 - 48.5 % [facility] Mean Cell Volume 96.4(H) 82.9 - 93.1 fL [facility] Mean Cell Hemoglobin 31.4 27.5 - 32.1 pg [facility] Mean Cell Hemoglobin Concentration 32.6 32.0 - 35.7 gm/dL [facility] Platelet 72(L) 145 - 357 x10(3)/[facility] RDW Standard Deviation 41.5 36.0 - 45.0 [facility] RDW coefficient of variation 11.9 11.4 - 13.8 % [facility] Mean Platelet Volume 11.4 7.6 - 12.9 fL [facility] NRBC% auto 0.0 % [facility] NRBC Absolute 0.000 0.000 - 0.000 x10(3)/[facility] Blood specimen (specimen) 11/16/2019 4:07 AM EST 11/16/2019 4:51 AM EST Narrative Resulting Agency Comment Spec In Lab Librado Pan MD HEMATOLOGY ORDERA BLES [facility] [place] [address] * (ABNORMAL) Basic Metabolic Panel (non-fasting) (11/16/2019 4:07 AM EST) Pathologist [facility] Glucose 145 65 - 199 mg/dL [facility] Comment:Diabetes: >=200 mg/d L plus symptoms Blood Urea Nitrogen 17 10 - 20 mg/dL [facility] Creatinine 0.83 0.80 - 1.50 mg/dL [facility] Sodium 134(L) 135 - 145 mmol/L [facility] Potassium 4.2 3.5 - 5.0 mmol/L [facility] Comment: Please note: ??Patients with WBC >100,000 may have falsely elevated Potassium levels. ??For accurate Potassium quantification in these patients send serum separator tube (gold top) for subsequent determinations. ??Contact the Clinical Chemistry Laboratory if there are any questions. Chloride 103 98 - 107 mmol/L [facility] Carbon Dioxide 25 22 - 31 mmol/L [facility] Anion Gap 6 5 - 15 mmol/L [facility] Calcium 8.6 8.5 - 10.5 mg/dL [facility] Est Glomerular Filtration Rate 91 >=60 mL/min/1. 73 m?? [facility] Comment: The eGFR was calculated using the CKD-EPI equation. As with all creatinine based estimates of kidney function, eGFR values calculated with the CKD-EPI equation are not accurate in patients with acute kidney failure, extremes of body mass or the acutely ill. [email or web address] eGFR 106 >=60 mL/min/1. 73 m?? [facility] Comment: The eGFR was calculated using the CKD-EPI equation. As with all creatinine based estimates of kidney function, eGFR values calculated with the CKD-EPI equation are not accurate in patients with acute kidney failure, extremes of body mass or the acutely ill. [email or web address] Blood specimen (specimen) 11/16/2019 4:07 AM EST 11/16/2019 4:51 AM EST Narrative Resulting Agency Comment Spec In Lab Librado Pan MD CHEMISTRY ORDERAB LES [facility] [place] [address] * Cell Count Body Fluid Knee, Right (11/15/2019 1:27 PM EST) Body Fluid Source Knee, Right [facility] Color, Fld Straw [facility] Appearance, Fld Slightly Hazy [facility] WBC Count, Fld 351 /[facility] Comment: Counts may be inaccurate due to presence of debris Guideline listed below apply to all body fluids. Differentials on BAL specimens are performed by the Cytology lab section. When Body Fluid WBC count is greater than Zero, a smear is made and scanned. All scan information is correlated with numeric results prior to being released to patients chart. Polymorphonuclear cells BF % 15 % [facility] Comment: Polymorphonuclear cell percent and absolute values may contain Neutrophils, Eosinophils, and Basophils. Body fluid smear will be scanned manually for concordance. Mononuclear cells BF % 85 % [facility] Comment: Mononuclear cell percent and absolute values may contain Lymphocytes and Monocytes. Body fluid smear will be scanned manually for concordance. Polymorphonuclear cells BF ABS 53 /[facility] Comment: Polymorphonuclear cell percent and absolute values may contain Neutrophils, Eosinophils, and Basophils. Body fluid smear will be scanned manually for concordance. Mononuclear cells BF ABS 298 /[facility] Comment: Mononuclear cell percent and absolute values may contain Lymphocytes and Monocytes. Body fluid smear will be scanned manually for concordance. 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 Shania 11/15/2019- Primary Postoperative anemia due to acute blood loss Acute posthemorrhagic anemia documented in this encounter Admitting Diagnoses Diagnosis S/P revision of total knee, right documented in this encounter Administered Medications Inactive Administered Medications - up to 3 most recent administrations Medication Order MAR Action Action Date Dose Rate Site acetaminophen (Tylenol) tablet 1,000 mg 1,000 mg, Oral, ONCE, 1 dose, On Wed11/15/19 at 1145, Administer on arrival in Same Day Program, Day of Surgery (Day of Procedure), Routine Given 11/15/2019 11:50 AM EST 1,000 mg acetaminophen (Tylenol) tablet 1,000 mg 1,000 mg, Oral, EVERY 8 HOURS SCHEDULED, First dose on Wed11/15/19 at 1515, Until Discontinued, Maximum dose of acetaminophen is 4000 mg from all sources in 24 hours., Routine Given 11/16/2019 3:30 AM EST 1,000 mg Given 11/15/2019 8:09 PM EST 1,000 mg acetaminophen (Tylenol) tablet 1,000 mg 1,000 mg, Oral, EVERY 6 HOURS SCHEDULED, First dose (after last modification) on Zakia 11/16/19 at 1200, Until Discontinued, Maximum dose of acetaminophen is 4000 mg from all sources in 24 hours., Routine Given 11/17/2019 11:39 AM EST 1,00 0 mg Given 11/17/2019 5:17 AM EST 1,000 mg Given 11/16/2019 11:30 PM EST 1,000 mg acyclovir (Zovirax) tablet 200 mg 200 mg, Oral, 2 TIMES DAILY, First dose on Wed11/15/19 at 2100, Until Discontinued, Therapeutic interfhange for capsule dose form., Routine, Indication for (Active or Suspected): Prophylaxis Given 11/17/2019 8:37 AM EST 200 mg Given 11/16/2019 8:32 PM EST 200 mg Given 11/16/2019 9:36 AM EST 200 mg apixaban (Eliquis) tablet 2.5 mg 2.5 mg, Oral, 2 TIMES DAILY, 6 doses, First dose on Wed11/15/19 at 2100, Last dose on Wed11/18/19 at 0900, Anticoagulant, Routine, Restricted anticoagulant, choose the most appropriate response: Approved indication of hip/knee replacement DVT prophylaxis Given 11/17/2019 8:37 AM EST 2.5 mg Given 11/16/2019 8:32 PM EST 2.5 mg Given 11/16/2019 9:16 AM EST 2.5 mg apixaban (Eliquis) tablet 5 mg 5 mg, Oral, 2 TIMES DAILY, First dose (after last modification) on 11/18/19 at 2100, Until Discontinued, Anticoagulant, Routine, Restricted anticoagulant, choose the most appropriate response: Approved indication of non-valvular atrial fibrillation baclofen (Lioresal) tablet 10 mg 10 mg, Oral, NIGHTLY PRN, Starting on Wed11/15/19 at 1656, Until Wed11/17/19 at 1559, Muscle spasms, Routine Given 11/16/2019 8:33 PM EST 10 mg ceFAZolin (ANCEF) 2g in dextrose 5% 100 mL 2 g, Intravenous, EVERY 8 HOURS, 3 doses, First dose on Wed11/15/19 at 1700, Last dose on Wed11/16/19 at 0900, Administer over 30 Minutes, Adjust to 4 hours from intraoperative dose. * Beta-lactam based antibiotics (eg. Ampicillin, Cefazolin, Aztreonam) should be administered within 4 hours of the preceding intraoperative dose. * Vancomycin, Fluoroquinolones, Clindamycin, Gentamicin, and Metronidazole should be administered within 8 hours of the preceding intraoperative dose., Recovery (Recovery-Hospital Unit), Indication for (Active or Suspected): Prophylaxis New Bag 11/16/2019 9:13 AM EST 2 g 200 mL/hr New Bag 11/16/2019 1:25 AM EST 2 g 200 mL/hr New Bag 11/15/2019 5:56 PM EST 2 g 200 mL/hr celecoxib (CeleBREX) capsule 200 mg 200 mg, Oral, 2 TIMES DAILY, First dose on Wed11/15/19 at 2100, Until Discontinued, Routine Given 11/17/2019 8:37 AM EST 200 mg Given 11/16/2019 8:32 PM EST 200 mg Given 11/16/2019 9:15 AM EST 200 mg celecoxib (CeleBREX) capsule 400 mg 400 mg, Oral, ONCE, 1 dose, On Wed11/15/19 at 1145, Administer on arrival to Same Day Program, Day of Surgery (Day of Procedure), Routine Given 11/15/2019 11:50 AM EST 400 mg dexamethasone (Decadron) tablet 4 mg 4 mg, Oral, DAILY, 2 doses, First dose on Wed11/15/19 at 1715, Last dose on Wed11/16/19 at 0900, Routine Given 11/16/2019 9:13 AM EST 4 mg Given 11/15/2019 5:56 PM EST 4 mg fentaNYL (PF) 50mcg/mL injection 50 mcg, Intravenous, EVERY 5 MIN PRN, Starting on Wed11/15/19 at 1123, Until Wed11/15/19 at 1248, Pain, or prior to injection of local anesthetic., Hold for respiratory rate less than 8 breaths per minute. (maximum dose 200 mcg), Day of Surgery (Day of Procedure), Routine Given 11/15/2019 12:35 PM EST 25 mcg Given 11/15/2019 12:23 PM EST 25 mcg gabapentin (Neurontin) capsule 600 mg 600 mg, Oral, ONCE, 1 dose, On Wed11/15/19 at 1145, Administer on arrival in Same Day Program, Day of Surgery (Day of Procedure), Routine Given 11/15/2019 11:50 AM EST 600 mg gabapentin (Neurontin) capsule 600 mg 600 mg, Oral, NIGHTLY, 2 doses, First dose on Wed11/15/19 at 2100, Last dose on Wed11/16/19 at 2100, Routine Given 11/16/2019 8:32 PM EST 600 mg Given 11/15/2019 8:08 PM EST 600 mg HYDROmorphone (DILAUDID) injection 0.4-0.6 mg 0.4-0.6 mg, Intravenous, EVERY 5 MIN PRN, Starting on Wed11/15/19 at 1410, Until Wed11/15/19 at 1609, Pain, Give 0.4 mg every 5 minutes PRN for mild to moderate pain (1-5) Give 0.6 mg every 5 minutes PRN for moderate to severe pain (6-10). Hold for respiratory rate less than 10 per minute. Maximum dose 4 mg over one hour. If multiple pain medications are ordered, start with hydromorphone or morphine and use fentanyl for breakthrough pain., PACU Recovery, Routine Given 11/15/2019 3:17 PM EST 0.4 mg Given 11/15/2019 3:11 PM EST 0.6 mg Given 11/15/2019 3:05 PM EST 0.6 mg ketorolac (TORADOL) injection 15 mg 15 mg, Intravenous, EVERY 6 HOURS PRN, Starting on Wed11/15/19 at 1452, Until Wed11/17/19 at 1451, Pain, Routine Given 11/16/2019 3:28 PM EST 15 mg Given 11/16/2019 9:25 AM EST 15 mg lactated ringers infusion 1,000 mL, at 100 mL/hr, Intravenous, CONTINUOUS, Starting on Wed11/15/19 at 1145, Until Wed11/15/19 at 1609, Day of Surgery (Day of Procedure) New Bag 11/15/2019 2:21 PM EST New Bag 11/15/2019 12:07 PM EST 1,000 mLs 100 mL/hr lamoTRIgine (LaMICtal) tablet 50 mg 50 mg, Oral, 2 TIMES DAILY, First dose on Wed11/15/19 at 2100, Until Discontinued, Routine Given 11/17/2019 8:36 AM EST 50 mg Given 11/16/2019 8:32 PM EST 50 mg Given 11/16/2019 9:13 AM EST 50 mg levothyroxine (Synthroid) tablet 100 mcg 100 mcg, Oral, DAILY, First dose on Wed11/15/19 at 1715, Until Discontinued, Routine Given 11/17/2019 8:37 AM EST 100 mcg Given 11/16/2019 9:16 AM EST 100 mcg Given 11/15/2019 5:56 PM EST 100 mcg lidocaine (LIDODERM) 5 % patch 3 patch 3 patch, Transdermal, EVERY 24 HOURS, First dose on Wed11/16/19 at 1000, Until Discontinued, Apply patch(es) for 12 hours, and then remove for 12 hours, Routine Patch Applied 11/17/2019 11:39 AM EST 3 patches 16- Thigh Anterior (Right) Patch Applied 11/16/2019 10:01 AM EST 3 patches 20-Other (document in comment section) lidocaine (LIDODERM) 5 %(700 mg/patch) Patch Removal Transdermal, EVERY 24 HOURS, First dose on Wed11/16/19 at 2145, Until Discontinued, Remove lidocaine 5 %(700 mg/patch) patch methocarbamol (Robaxin) tablet 750 mg 750 mg, Oral, EVERY 8 HOURS PRN, Starting on Wed11/16/19 at 0944, Until Wed11/17/19 at 1559, Muscle spasms, Do not give PM dose if patient took baclofen, Routine Given 11/17/2019 8:36 AM EST 750 mg Given 11/16/2019 10:02 AM EST 750 mg metoprolol succinate XL (Toprol-XL) tablet 100 mg 100 mg, Oral, DAILY, First dose on Wed11/16/19 at 0900, Until Discontinued, DO NOT CRUSH OR OPEN Please hold for BP <100, HR <55, Routine Given 11/17/2019 8:36 AM EST 100 mg Given 11/16/2019 9:11 AM EST 100 mg midazolam (PF) (VERSED) injection 1 mg 1 mg, Intravenous, EVERY 5 MIN PRN, Starting on Wed11/15/19 at 1123, Until Wed11/15/19 at 1248, Sleep, or prior to injection of local anesthetic, Hold for delirium/agitation. (Maximum dose 5 mg)., Day of Surgery (Day of Procedure), Routine Given 11/15/2019 12:28 PM EST 1 mg Given 11/15/2019 12:23 PM EST 1 mg multivitamin with minerals (THERA-M) tablet 1 tablet 1 tablet, Oral, DAILY, First dose on Wed11/15/19 at 1715, Until Discontinued, Routine Given 11/17/2019 8:37 AM EST 1 tablet Given 11/16/2019 9:16 AM EST 1 tablet Given 11/15/2019 5:56 PM EST 1 tablet ondansetron (ZOFRAN) injection 4 mg 4 mg, Intravenous, EVERY 8 HOURS PRN, Starting on Wed11/15/19 at 1656, Until Wed11/17/19 at 1559, Nausea, May repeat times one in 30 minutes if ineffective. If multiple antiemetics are ordered, use ondansetron first, Recovery (Recovery-Hospital Unit) ondansetron (Zofran) tablet 4 mg 4 mg, Oral, EVERY 8 HOURS PRN, Starting on Wed11/15/19 at 1656, Until Wed11/17/19 at 1559, Nausea, Vomiting, If multiple antiemetics are ordered, use ondansetron first. PO Preferred. If patient unable to take PO, may give IV if ordered. May repeat times one in 45 minutes if ineffective., Recovery (Recovery-Hospital Unit), Routine oxyCODONE (Roxicodone) tablet 10-20 mg 10-20 mg, Oral, EVERY 3 HOURS PRN, Starting on Zakia 11/16/19 at 0641, Until Wed11/17/19 at 1559, Pain, Give 10 mg for mild pain (1-3), 15 mg for moderate pain (4-6) or 20 mg for severe pain (7-10) May give an additional 5 mg in 30 minutes ONCE if pain not relieved., Routine Given 11/17/2019 12:40 PM EST 15 mg Given 11/17/2019 8:37 AM EST 15 mg Given 11/16/2019 10:34 PM EST 10 mg oxyCODONE (Roxicodone) tablet 5-15 mg 5-15 mg, Oral, EVERY 3 HOURS PRN, Starting on Wed11/15/19 at 1452, Until [place]kia 11/16/19 at 0629, Pain, Give 5 mg for mild pain (1-3), 10 mg for moderate pain (4-6) or 15 mg for severe pain (7-10) May give an additional 5 mg in 30 minutes ONCE if pain not relieved., Routine Given 11/16/2019 1:30 AM EST 15 mg Given 11/15/2019 3:14 PM EST 15 mg pantoprazole EC (Protonix) tablet 20 mg 20 mg, Oral, DAILY, First dose on Wed11/15/19 at 1715, Until Discontinued, DO NOT CRUSH OR OPEN Given 11/17/2019 8:37 AM EST 20 mg Given 11/16/2019 9:13 AM EST 20 mg Given 11/15/2019 5:56 PM EST 20 mg polyethylene glycol (Miralax) packet 17 g 17 g, Oral, 2 TIMES DAILY, First dose on Wed11/15/19 at 2100, Until Discontinued, Routine Given 11/17/2019 8:36 AM EST 17 g Given 11/16/2019 9:16 AM EST 17 g Given 11/15/2019 8:05 PM EST 17 g prochlorperazine (COMPAZINE) injection 10 mg 10 mg, Intravenous, EVERY 6 HOURS PRN, Starting on Wed11/15/19 at 1656, Until Wed11/17/19 at 1559, Nausea, Vomiting, If multiple antiemetics are ordered, use ondansetron first. If ondansetron ineffective use prochlorperazine. , Recovery (Recovery-Hospital Unit), Routine prochlorperazine (Compazine) tablet 10 mg 10 mg, Oral, EVERY 6 HOURS PRN, Starting on Wed11/15/19 at 1656, Until Wed11/17/19 at 1559, Nausea, Vomiting, If multiple antiemetics are ordered, use ondansetron first. If ondansetron ineffective use prochlorperazine. PO Preferred. If patient unable to take PO, may give IV if ordered., Recovery (Recovery-Hospital Unit), Routine senna-docusate (Pericolace) 8.6-50 mg per tablet 2 tablet 2 tablet, Oral, 2 TIMES DAILY, First dose on Wed11/15/19 at 2100, Until Discontinued, Routine Given 11/17/2019 8:37 AM EST 2 tablets Given 11/16/2019 8:33 PM EST 2 tablets Given 11/16/2019 9:18 AM EST 2 tablets simvastatin (Zocor) tablet 10 mg 10 mg, Oral, NIGHTLY, First dose on Wed11/15/19 at 2100, Until Discontinued Given 11/16/2019 8:33 PM EST 10 mg Given 11/15/2019 8:10 PM EST 10 mg sodium chloride 0.9 % (flush) flush 5 mL 5 mL, Intravenous, 2 TIMES DAILY, First dose on Wed11/15/19 at 2100, Until Discontinued, Recovery (Recovery-Hospital Unit), Routine Given 11/17/2019 9:00 AM EST 5 mLs Given 11/16/2019 8:35 PM EST 5 mLs Given 11/16/2019 9:15 AM EST 5 mLs sodium chloride 0.9% infusion 1,000 mL, at 100 mL/hr, Intravenous, CONTINUOUS, Starting on Wed11/15/19 at 1515, Until Wed11/15/19 at 2314, Recovery (Recovery-Hospital Unit) New Bag 11/15/2019 6:01 PM EST 1,000 mLs 100 mL/hr documented in this encounter Active and Recently Administered Medications Times are shown in EST. Scheduled Medication Order 11/15/2019 11/16/2019 11/17/2019 acetaminophen (Tylenol) tablet 1,000 mg (COMPLETED) 1,000 mg, Oral, ONCE, 1 dose, On Wed11/15/19 at 1145, Administer on arrival in Same Day Program, Day of Surgery (Day of Procedure), Routine 1150 (Given - Provider: Chary Meadows RN) acetaminophen (Tylenol) tablet 1,000 mg (CANCELED) 1,000 mg, Oral, EVERY 8 HOURS SCHEDULED, First dose on Wed11/15/19 at 1515, Until Discontinued, Maximum dose of acetaminophen is 4000 mg from all sources in 24 hours., Routine 1515 (Not Given - Provider: Tiki Perez RN - Reason: Per MD Order)2008 (Given - Provider: Flory Barraza RN) 329 (Given - Provider: Flory Barraza RN) acetaminophen (Tylenol) tablet 1,000 mg 1,000 mg, Oral, EVERY 6 HOURS SCHEDULED, First dose (after last modification) on Zakia 11/16/19 at 1200, Until Discontinued, Maximum dose of acetaminophen is 4000 mg from all sources in 24 hours., Routine 1312 (Given - Provider: Magen Castorena)1839 (Given - Provider: Irma Ortiz RN)2330 (Given - Provider: Jonathan Viramontes RN) 0517 (Given - Provider: Jonathan Viramontes RN)1139 (Given - Provider: Jesse Adkins RN) acyclovir (Zovirax) tablet 200 mg 200 mg, Oral, 2 TIMES DAILY, First dose on Wed11/15/19 at 2100, Until Discontinued, Therapeutic interfhange for capsule dose form., Routine, Indication for (Active or Suspected): Prophylaxis 2015 (Given - Provider: Flory Barraza RN) 0936 (Given - Provider: Ana Rojas RN)2031 (Given - Provider: Jonathan Viramontes RN) 0837 (Given - Provider: Jesse Adkins RN) apixaban (Eliquis) tablet 2.5 mg 2.5 mg, Oral, 2 TIMES DAILY, 6 doses, First dose on Wed11/15/19 at 2100, Last dose on 11/18/19 at 0900, Anticoagulant, Routine, Restricted anticoagulant, choose the most appropriate response: Approved indication of hip/knee replacement DVT prophylaxis 2008 (Given - Provider: Flory Barraza RN) 09 (Given - Provider: Sera Koroma RN)2031 (Given - Provider: Jonathan Viramontes RN) 0837 (Given - Provider: Jesse Adkins RN) apixaban (Eliquis) tablet 5 mg 5 mg, Oral, 2 TIMES DAILY, First dose (after last modification) on 11/18/19 at 2100, Until Discontinued, Anticoagulant, Routine, Restricted anticoagulant, choose the most appropriate response: Approved indication of non-valvular atrial fibrillation ceFAZolin (ANCEF) 2g in dextrose 5% 100 mL (COMPLETED) 2 g, Intravenous, EVERY 3 HOURS, 1 dose, First dose on Wed11/15/19 at 1145, Administer over 30 Minutes, Redose after 3 hours., Intra-Operative (Intra-Procedure), Indication for (Active or Suspected): Prophylaxis 1306 (Given - Provider: Maegan Romano) ceFAZolin (ANCEF) 2g in dextrose 5% 100 mL (COMPLETED) 2 g, Intravenous, EVERY 8 HOURS, 3 doses, First dose on Wed11/15/19 at 1700, Last dose on Zakia 11/16/19 at 0900, Administer over 30 Minutes, Adjust to 4 hours from intraoperative dose. * Beta-lactam based antibiotics (eg. Ampicillin, Cefazolin, Aztreonam) should be administered within 4 hours of the preceding intraoperative dose. * Vancomycin, Fluoroquinolones, Clindamycin, Gentamicin, and Metronidazole should be administered within 8 hours of the preceding intraoperative dose., Recovery (Recovery-Hospital Unit), Indication for (Active or Suspected): Prophylaxis 1756 (New Bag - Provider: Vandana Zuniga RN)1826 (Stopped - Provider: Vandana Zuniga RN) 0125 (New Bag - Provider: Flory Barraza RN)0155 (Stopped - Provider: Flory Barraza RN)0913 (New Bag - Provider: Sera Koroma RN)0943 (Stopped - Provider: Sera Koroma RN) celecoxib (CeleBREX) capsule 200 mg 200 mg, Oral, 2 TIMES DAILY, First dose on Wed11/15/19 at 2100, Until Discontinued, Routine 2005 (Given - Provider: Flory Barraza RN) 0915 (Given - Provider: Sera Koroma RN)203 (Given - Provider: Jonathan Viramontes RN) 0837 (Given - Provider: Jesse Adkins RN) celecoxib (CeleBREX) capsule 400 mg (COMPLETED) 400 mg, Oral, ONCE, 1 dose, On Wed11/15/19 at 1145, Administer on arrival to Same Day Program, Day of Surgery (Day of Procedure), Routine 1150 (Given - Provider: Chary Meadows RN) dexamethasone (Decadron) tablet 4 mg (COMPLETED) 4 mg, Oral, DAILY, 2 doses, First dose on Wed11/15/19 at 1715, Last dose on Wed11/16/19 at 0900, Routine 175 (Given - Provider: Vandana Zuniga, TORREY) 09 (Given - Provider: Sera Koroma RN) gabapentin (Neurontin) capsule 300 mg(Linked Group 1) 300 mg, Oral, NIGHTLY, First dose on Wed11/17/19 at 2100, Until Discontinued, Routine gabapentin (Neurontin) capsule 600 mg (COMPLETED) 600 mg, Oral, ONCE, 1 dose, On Wed11/15/19 at 1145, Administer on arrival in Same Day Program, Day of Surgery (Day of Procedure), Routine 1150 (Given - Provider: Chary Meadows RN) gabapentin (Neurontin) capsule 600 mg (COMPLETED)(Linked Group 1) 600 mg, Oral, NIGHTLY, 2 doses, First dose on Wed11/15/19 at 2100, Last dose on Wed11/16/19 at 2100, Routine 2007 (Given - Provider: Folry Barraza RN) 2031 (Given - Provider: Jonathan Viramontes RN) lamoTRIgine (LaMICtal) tablet 50 mg 50 mg, Oral, 2 TIMES DAILY, First dose on Wed11/15/19 at 2100, Until Discontinued, Routine 2006 (Given - Provider: Flory Barraza RN) 912 (Given - Provider: Sera Koroma RN)2031 (Given - Provider: Jonathan Viramontes RN) 0836 (Given - Provider: Jesse Adkins, TORREY) levothyroxine (Synthroid) tablet 100 mcg 100 mcg, Oral, DAILY, First dose on Wed11/15/19 at 1715, Until Discontinued, Routine 1755 (Given - Provider: Vandana Zuniga, RN) 0916 (Given - Provider: Sera Koroma, TORREY) 0837 (Given - Provider: Jesse Adkins, TORREY) lidocaine (LIDODERM) 5 % patch 3 patch(Linked Group 2) 3 patch, Transdermal, EVERY 24 HOURS, First dose on Wed11/16/19 at 1000, Until Discontinued, Apply patch(es) for 12 hours, and then remove for 12 hours, Routine 1001 (Patch Applied - Provider: Sera Koroma RN - Comment: knee and back) 1139 (Patch Applied - Provider: Jesse Adkins, TORREY) lidocaine (LIDODERM) 5 %(700 mg/patch) Patch Removal(Linked Group 2) Transdermal, EVERY 24 HOURS, First dose on Wed11/16/19 at 2145, Until Discontinued, Remove lidocaine 5 %(700 mg/patch) patch 2100 (Patch Removed - Provider: Jonathan Viramontes, TORREY) metoprolol succinate XL (Toprol-XL) tablet 100 mg 100 mg, Oral, DAILY, First dose on Wed11/16/19 at 0900, Until Discontinued, DO NOT CRUSH OR OPEN Please hold for BP <100, HR <55, Routine 910 (Given - Provider: Sera Koroma RN) 0836 (Given - Provider: Jesse Adkins, TORREY) multivitamin with minerals (THERA-M) tablet 1 tablet 1 tablet, Oral, DAILY, First dose on Wed11/15/19 at 1715, Until Discontinued, Routine 175 (Given - Provider: Vandana Zuniga RN) 0916 (Given - Provider: Sera Koroma RN) 0837 (Given - Provider: Jesse Adkins, TORREY) pantoprazole EC (Protonix) tablet 20 mg 20 mg, Oral, DAILY, First dose on Wed11/15/19 at 1715, Until Discontinued, DO NOT CRUSH OR OPEN 175 (Given - Provider: Vandana Zuniga RN) 0913 (Given - Provider: Sera Koroma RN) 0837 (Given - Provider: Jesse Adkins, TORREY) polyethylene glycol (Miralax) packet 17 g 17 g, Oral, 2 TIMES DAILY, First dose on Wed11/15/19 at 2100, Until Discontinued, Routine 2004 (Given - Provider: Flory Barraza RN) 0916 (Given - Provider: Sera Koroma RN)2099 (Not Given - Provider: Jonathan Viramontes, TORREY - Reason: Patient/family refused) 0836 (Given - Provider: Jesse Adkins, TORREY) senna-docusate (Pericolace) 8.6-50 mg per tablet 2 tablet 2 tablet, Oral, 2 TIMES DAILY, First dose on Wed11/15/19 at 2100, Until Discontinued, Routine 2005 (Given - Provider: Flory Barraza RN) 0918 (Given - Provider: Sera Koroma, TORREY)2032 (Given - Provider: Jonathan Viramontes, TORREY) 0837 (Given - Provider: Jesse Adkins, TORREY) simvastatin (Zocor) tablet 10 mg 10 mg, Oral, NIGHTLY, First dose on Wed11/15/19 at 2100, Until Discontinued 2009 (Given - Provider: Flory Barraza RN) 2032 (Given - Provider: Jonathan Viramontes RN) sodium chloride 0.9 % (flush) flush 5 mL 5 mL, Intravenous, 2 TIMES DAILY, First dose on Wed11/15/19 at 2099, Until Discontinued, Recovery (Recovery-Hospital Unit), Routine 2099 (Not Given - Provider: Flory Barraza RN - Reason: See comment - Comment: infusing) 914 (Given - Provider: Sera Koroma RN)2034 (Given - Provider: Jonathan Viramontes RN) 09 (Given - Provider: Jesse Adkins RN) tranexamic acid (CYKLOKAPRON) 1,116 mg in sodium chloride 0.9% 111.16 mL (COMPLETED) 1,116 mg (15 mg/kg/dose ? 74.4 kg), Intravenous, ONCE, 1 dose, On Wed11/15/19 at 1145, Administer over 30 Minutes, Day of Surgery (Day of Procedure) 1306 (New Bag - Provider: Maegan Romano) verapamil SR (Calan-SR) tablet 120 mg 120 mg, Oral, NIGHTLY, First dose on Wed11/15/19 at 2099, Until Discontinued, DO NOT CRUSH OR OPEN Please hold for BP <105, HR <60, Routine 2009 (Not Given - Provider: Flory Barraza RN - Reason: Order parameters not met) 2099 (Not Given - Provider: Jonathan Viramontes RN - Reason: Order parameters not met - Comment: HR <60) Continuous Medication Order 11/15/2019 11/16/2019 11/17/2019 lactated ringers infusion (CANCELED) 1,000 mL, at 100 mL/hr, Intravenous, CONTINUOUS, Starting on Wed11/15/19 at 1145, Until Wed11/15/19 at 1609, Day of Surgery (Day of Procedure) 1207 (New Bag - Provider: Chary Meadows, RN)1421 (New Bag - Provider: Maegan Romano) sodium chloride 0.9% infusion () 1,000 mL, at 100 mL/hr, Intravenous, CONTINUOUS, Starting on Wed11/15/19 at 1515, Until Wed11/15/19 at 2314, Recovery (Recovery-Hospital Unit) 1801 (New Bag - Provider: Vandana Zuniga, TORREY) PRN Medication Order 11/15/2019 11/16/2019 11/17/2019 baclofen (Lioresal) tablet 10 mg 10 mg, Oral, NIGHTLY PRN, Starting on Wed11/15/19 at 1656, Until Wed11/17/19 at 1559, Muscle spasms, Routine 2032 (Given - Provider: Jonathan Viramontes RN) bisacodyl (Dulcolax) suppository 10 mg 10 mg, Rectal, DAILY PRN, Starting on Wed11/15/19 at 1656, Until Wed11/17/19 at 1559, Constipation, Administer if needed per patient's routine or if no bowel movement within 48 hours to achieve: (1) One bowel movement every 48 hours, AND (2) without straining. If multiple PRN bowel medications ordered, start with lactulose, then oral bisacodyl, then bisacodyl suppository. Multiple medications may be given concomitantly for constipation., Routine bisacodyl EC (Dulcolax) tablet 10 mg 10 mg, Oral, 2 TIMES DAILY PRN, Starting on Wed11/15/19 at 1656, Until Wed11/17/19 at 1559, Constipation, DO NOT CRUSH OR OPEN Administer if needed per patient's routine or if no bowel movement within 48 hours to achieve: (1) One bowel movement every 48 hours, AND (2) without straining. If multiple PRN bowel medications ordered, start with lactulose, then oral bisacodyl, then bisacodyl suppository. Multiple medications may be given concomitantly for constipation., Routine BUpivacaine (PF) (MARCAINE) 0.25 % (2.5 mg/mL) injection (CANCELED) ONCE PRN, Starting on Wed11/15/19 at 1330, Until Wed11/17/19 at 1559, Intra-Operative (Intra-Procedure), Routine 1330 (Given - Provider: Sukhjinder Jauregui MD - Comment: Part of joint cocktail.) cloNIDine injection (CANCELED) ONCE PRN, Starting on Wed11/15/19 at 1329, Until Wed11/17/19 at 1559, Intra-Operative (Intra-Procedure), Routine 1329 (Given - Provider: Sukhjinder Jauregui MD - Comment: Part of joint cocktail.) fentaNYL (PF) 50mcg/mL injection (CANCELED) 50 mcg, Intravenous, EVERY 5 MIN PRN, Starting on Wed11/15/19 at 1123, Until Wed11/15/19 at 1248, Pain, or prior to injection of local anesthetic., Hold for respiratory rate less than 8 breaths per minute. (maximum dose 200 mcg), Day of Surgery (Day of Procedure), Routine 1223 (Given - Provider: Chary Meadows RN)1235 (Given - Provider: Chary Meadows RN) HYDROmorphone (DILAUDID) injection 0.4-0.6 mg (CANCELED) 0.4-0.6 mg, Intravenous, EVERY 5 MIN PRN, Starting on Wed11/15/19 at 1410, Until Wed11/15/19 at 1609, Pain, Give 0.4 mg every 5 minutes PRN for mild to moderate pain (1-5) Give 0.6 mg every 5 minutes PRN for moderate to severe pain (6-10). Hold for respiratory rate less than 10 per minute. Maximum dose 4 mg over one hour. If multiple pain medications are ordered, start with hydromorphone or morphine and use fentanyl for breakthrough pain., PACU Recovery, Routine 1500 (Given - Provider: Tiki Perez RN)1505 (Given - Provider: Tiki Perez RN)1511 (Given - Provider: Tiki Perez RN)1517 (Given - Provider: Tiki Perez RN) ketorolac (TORADOL) injection 15 mg 15 mg, Intravenous, EVERY 6 HOURS PRN, Starting on Wed11/15/19 at 1452, Until Wed11/17/19 at 1451, Pain, Routine 0925 (Given - Provider: Sera Koroma, RN)1528 (Given - Provider: Ana Rojas, TORREY) ketorolac (TORADOL) injection (CANCELED) ONCE PRN, Starting on Wed11/15/19 at 1330, Until Wed11/17/19 at 1559, Intra-Operative (Intra-Procedure), Routine 1330 (Given - Provider: Sukhjinder Jauregui MD - Comment: Part of joint cocktail.) lidocaine (XYLOCAINE) 10 mg/mL (1 %) injection 3 mg 3 mg (0.3 mL), Subcutaneous, ONCE PRN, 1 dose, Starting on Wed11/15/19 at 1656, Until Wed11/17/19 at 1559, for discomfort with PIV insertion, Recovery (Recovery-Hospital Unit), Routine methocarbamol (Robaxin) tablet 750 mg 750 mg, Oral, EVERY 8 HOURS PRN, Starting on Zakia 11/16/19 at 0944, Until Wed11/17/19 at 1559, Muscle spasms, Do not give PM dose if patient took baclofen, Routine 1002 (Given - Provider: Sera Koroma, TORREY) 0836 (Given - Provider: Jesse Adkins RN) midazolam (PF) (VERSED) injection 1 mg (CANCELED) 1 mg, Intravenous, EVERY 5 MIN PRN, Starting on Wed11/15/19 at 1123, Until Wed11/15/19 at 1248, Sleep, or prior to injection of local anesthetic, Hold for delirium/agitation. (Maximum dose 5 mg)., Day of Surgery (Day of Procedure), Routine 1223 (Given - Provider: Chary Meadows, TORREY)1228 (Given - Provider: Chary Meadows, TORREY) ondansetron (ZOFRAN) injection 4 mg(Linked Group 3) 4 mg, Intravenous, EVERY 8 HOURS PRN, Starting on Wed11/15/19 at 1656, Until Wed11/17/19 at 1559, Nausea, May repeat times one in 30 minutes if ineffective. If multiple antiemetics are ordered, use ondansetron first, Recovery (Recovery-Hospital Unit) ondansetron (Zofran) tablet 4 mg(Linked Group 3) 4 mg, Oral, EVERY 8 HOURS PRN, Starting on 11/15/19 at 1656, Until Wed11/17/19 at 1559, Nausea, Vomiting, If multiple antiemetics are ordered, use ondansetron first. PO Preferred. If patient unable to take PO, may give IV if ordered. May repeat times one in 45 minutes if ineffective., Recovery (Recovery-Hospital Unit), Routine oxyCODONE (Roxicodone) tablet 10-20 mg 10-20 mg, Oral, EVERY 3 HOURS PRN, Starting on Zakia 11/16/19 at 0641, Until Wed11/17/19 at 1559, Pain, Give 10 mg for mild pain (1-3), 15 mg for moderate pain (4-6) or 20 mg for severe pain (7-10) May give an additional 5 mg in 30 minutes ONCE if pain not relieved., Routine 0647 (Given - Provider: Flory Barraza RN)1002 (Given - Provider: Sera Koroma RN)1502 (Given - Provider: Ana Rojas RN)2234 (Given - Provider: Jonathan Viramontes RN) 0837 (Given - Provider: Jesse Adkins, TORREY)1240 (Given - Provider: Jesse Adkins, TORREY) oxyCODONE (Roxicodone) tablet 5-15 mg (CANCELED) 5-15 mg, Oral, EVERY 3 HOURS PRN, Starting on Wed11/15/19 at 1452, Until Zakia 11/16/19 at 0629, Pain, Give 5 mg for mild pain (1-3), 10 mg for moderate pain (4-6) or 15 mg for severe pain (7-10) May give an additional 5 mg in 30 minutes ONCE if pain not relieved., Routine 1514 (Given - Provider: Tiki Perez RN) 0130 (Given - Provider: Flory Barraza RN) prochlorperazine (COMPAZINE) injection 10 mg(Linked Group 4) 10 mg, Intravenous, EVERY 6 HOURS PRN, Starting on Wed11/15/19 at 1656, Until Wed11/17/19 at 1559, Nausea, Vomiting, If multiple antiemetics are ordered, use ondansetron first. If ondansetron ineffective use prochlorperazine. , Recovery (Recovery-Hospital Unit), Routine prochlorperazine (Compazine) tablet 10 mg(Linked Group 4) 10 mg, Oral, EVERY 6 HOURS PRN, Starting on Wed11/15/19 at 1656, Until Wed11/17/19 at 1559, Nausea, Vomiting, If multiple antiemetics are ordered, use ondansetron first. If ondansetron ineffective use prochlorperazine. PO Preferred. If patient unable to take PO, may give IV if ordered., Recovery (Recovery-Hospital Unit), Routine sodium chloride 0.9 % (flush) flush 5-20 mL 5-20 mL, Intravenous, EVERY 1 MIN PRN, Starting on Wed11/15/19 at 1656, Until Wed11/17/19 at 1559, flush, Flush pertains to all indwelling lines. Flush per protocol found in the job aid using the link provided on this medication record., Recovery (Recovery-Hospital Unit), Routine SUMAtriptan (Imitrex) tablet 100 mg 100 mg, Oral, EVERY 8 HOURS PRN, Starting on Wed11/15/19 at 1656, Until Wed11/17/19 at 1559, Migraine, Routine Linked Groups Order Group 1: gabapentin (Neurontin) capsule 600 mg (COMPLETED)Jump to med 600 mg, Oral, NIGHTLY, 2 doses, First dose on Wed11/15/19 at 2100, Last dose on Wed11/16/19 at 2100, Routine Followed by gabapentin (Neurontin) capsule 300 mgJump to med 300 mg, Oral, NIGHTLY, First dose on Wed11/17/19 at 2100, Until Discontinued, Routine Group 2: lidocaine (LIDODERM) 5 % patch 3 patchJump to med 3 patch, Transdermal, EVERY 24 HOURS, First dose on Wed11/16/19 at 1000, Until Discontinued, Apply patch(es) for 12 hours, and then remove for 12 hours, Routine And lidocaine (LIDODERM) 5 %(700 mg/patch) Patch RemovalJump to med Transdermal, EVERY 24 HOURS, First dose on Wed11/16/19 at 2145, Until Discontinued, Remove lidocaine 5 %(700 mg/patch) patch Group 3: ondansetron (Zofran) tablet 4 mgJump to med 4 mg, Oral, EVERY 8 HOURS PRN, Starting on Wed11/15/19 at 1656, Until Wed11/17/19 at 1559, Nausea, Vomiting, If multiple antiemetics are ordered, use ondansetron first. PO Preferred. If patient unable to take PO, may give IV if ordered. May repeat times one in 45 minutes if ineffective., Recovery (Recovery-Hospital Unit), Routine Or ondansetron (ZOFRAN) injection 4 mgJump to med 4 mg, Intravenous, EVERY 8 HOURS PRN, Starting on Wed11/15/19 at 1656, Until Wed11/17/19 at 1559, Nausea, May repeat times one in 30 minutes if ineffective. If multiple antiemetics are ordered, use ondansetron first, Recovery (Recovery-Hospital Unit) Group 4: prochlorperazine (Compazine) tablet 10 mgJump to med 10 mg, Oral, EVERY 6 HOURS PRN, Starting on Wed11/15/19 at 1656, Until Wed11/17/19 at 1559, Nausea, Vomiting, If multiple antiemetics are ordered, use ondansetron first. If ondansetron ineffective use prochlorperazine. PO Preferred. If patient unable to take PO, may give IV if ordered., Recovery (Recovery-Hospital Unit), Routine Or prochlorperazine (COMPAZINE) injection 10 mgJump to med 10 mg, Intravenous, EVERY 6 HOURS PRN, Starting on Wed11/15/19 at 1656, Until Wed11/17/19 at 1559, Nausea, Vomiting, If multiple antiemetics are ordered, use ondansetron first. If ondansetron ineffective use prochlorperazine. , Recovery (Recovery-Hospital Unit), Routine documented in this encounter Care Teams Factory Maintenance Technician Relationship Specialty Start Date End Date Radha Mckeon MD [address] [place] [address] PCP - General 09/23/10 documented as of this encounter
--- OUTSIDE RECORDS SUMMARY | 2024-07-24 17:27 | XMS_ITS | Encounter Summary ---
Author Organization [facility] [place] [address] Care Team Providers Care Tire Mounter Name Role Phone Radha Mckeon MD Primary Care Provider [phone] Encounter Details Date Type Department Care Team (Late st Contact Info) Description 09/19/2019 Telephone Cardiology at [address] [address] Malia Tsai RN Social History Tobacco Use Types Packs/Day [...] Telephone Encounter - Malia Tsai RN - 09/21/2019 2:25 PM EST TC to pt regarding ILR transmission received by our device clinic. Data was reviewed by Kike Robb where no events are shown. Pt encouraged to be vigilant for symptoms & use symptom activator. Also notified that if event does occur within programmed settings alert will be sent to device clinic. Recommended he continue to follow with neurology concerning results of EEG performed yesterday & CT scan that he will be having within the coming weeks. Encouraged to present to nearest ED if new or worsening symptoms present. * Telephone Encounter - Malia Tsai RN - 09/20/2019 5:09 PM EST Discussed importance of plugging ILR back in/turning ILR back on so that any events that occurred may be transmitted. He will call device clinic in the AM to help troubleshoot/answer questions about monitor. Notified him that Diogo noted that more recent symptoms have been felt to be non- cardiac but that the ILR will hopefully help us distinguish this for certain Notified him that if he can't get ILR checked remotely that he should be scheduled for in clinic OV Pt was agreeable & will keep us posted. * Telephone Encounter - Malia Tsai RN - 09/19/2019 5:43 PM EST Caller: patient Last OV date: 01/04/19 Details/plan from last OVN: Plan: ILR remote follow up in six months. EP clinic follow up in one year with 12 lead EKG and ILR interrogation. Provider: Diogo Robb PA-C Reason for Call: TC from pt concerning recent increase in near syncopal episodes. Describes episodes as lasting 60-90 secs (no correlation to positional activities). Will feel like he is going to faint (has never fainted/lost consciousness), gets flushed, & will have chills. He also describes L arm (has only happened once) & L leg numbness - feels like extremities arein cement PCP recently diagnosed him w/ thrombocytopenia & thought he might be having mini strokes so we was referred to neurology (Dr. Sosa at [facility]). He also was unsure if his history of nerve damage might be involved He is having EEG tomorrow & CT of heart on 10/04. He has these types of episodes a few times daily. Discussed importance of using ILR symptom activator when symptoms. He states that he doesn't feel like his home monitor is working. Provided him w/ device clinic number so they can help him troubleshoot. He will call them tomorrow at his convenience Plan: Will forward to Diogo for his further review and advisement. documented in this encounter Plan of Treatment Upcoming Encounters Date Type Department Care Team (Late st Contact Info) Description 08/18/2024 11:00 AM EDT Hospital Encounter [place] [address] Arrived 02/22/2025 1:30 PM EDT Appointment [place]ology [place] [address] 02/22/2025 2:30 PM EDT Office Visit Hematology [place] [address] Ellis Childers MD [facility] [address] HEMATOLOGY [place] [address] Felicita Landa APRN [facility] [address] [place] [address] documented as of this encounter Visit Diagnoses Not on filedocumented in this encounter Care Teams Tire Mounter Relationship Specialty Start Date End Date Radha Mckeon MD [address] [place] [address] PCP - General 09/23/10 documented as of this encounter
--- OUTSIDE RECORDS SUMMARY | 2024-07-24 17:27 | XMS_ITS | Encounter Summary ---
Author Organization [facility] [place] [address] Care Team Providers Care Collateral Specialist Name Role Phone Radha Mckeon MD Primary Care Provider Encounter Details Date Type Department Care Team (Late st Contact Info) Description 12/18/2019 Telephone Cardiology at [address] [phone] Margarette Ho, RN Social History [...] Miscellaneous Notes * Telephone Encounter - Margarette Barraza, RN - 12/18/2019 12:02 PM EST PT LVM on EP Team Nurse line advising that he has been out of Eliquis for several days now due tohigh co-pay costs. Pt asking for Alternative. Reviewed pt chart and pt has had a very recent Right TKA Revision on 11/15/[address] Jauregui. Reviewed this pt's situation with Halima CANDELARIO who will review. Pt call back number is [phone] ( cell) [phone] (H) may not be at this number for long today. documented in this encounter Plan of Treatment Upcoming Encounters Date Type Department Care Team (Late st Contact Info) Description 08/18/2024 11:00 AM EDT Hospital Encounter Non-[place]vasive [place] [address] Arrived 02/22/2025 1:30 PM EDT Appointment Hematology [place] [address] 02/22/2025 2:30 PM EDT Office Visit Hematology and Oncology at [place] [address] Ellis Childers MD [facility] [address] HEMAT[place]Y [place] [address] Felicita Landa APRN [facility] [address] [place] [address] documented as of this encounter Visit Diagnoses Not on filedocumented in this encounter Care Teams Collateral Specialist Relationship Specialty Start Date End Date Radha Mckeon MD [address] [place] [address] PCP - General 09/23/10 documented as of this encounter
--- OUTSIDE RECORDS SUMMARY | 2024-07-24 17:27 | XMS_ITS | Encounter Summary ---
Author Organization [facility] [place] [address] Care Team Providers Care Locomotive Oiler Name Role Phone Radha Mckeon MD Primary Care Provider [phone] Reason for Visit * Reason Onset Date Comments Questions 11/06/2019 Regarding pre snyder rgery exercise Encounter Details Date Type Department Care Team (Late st Contact Info) Description 11/06/2019 Telephone [place] [phone] Florecita Lopez, RN Questions (Regarding pre surgery exercise) Social History Tobacco Use Types Packs/Day Years [...] Telephone Encounter - Florecita Lopez, RN - 11/06/2019 4:38 PM EST Future R Knee Arthroscopy. Mr Machado called with a question regarding exercises he can do pre surgery as his legs are dwindling, and he cannot download this section on the [employer] website. He was given the [employer] customer service phone number so he can contact them for program information. Also let him know he can call back for any further questions or concerns. He agrees with this. documented in this encounter Plan of Treatment Upcoming Encounters Date Type Department Care Team (Late st Contact Info) Description 08/18/2024 11:00 AM EDT Hospital Encounter Non-[place] [address] Arrived 02/22/2025 1:30 PM EDT Appointment Hematology and Oncology at [address] 02/22/2025 2:30 PM EDT Office Visit Hematology and Oncology at [place] [phone] Ellis Childers MD [facility] [address] HEMATOLOGY [place] [address] Felicita Landa APRN [facility] [address] HEMATOLOGY [place] [address] documented as of this encounter Visit Diagnoses Not on filedocumented in this encounter Care Teams Locomotive Oiler Relationship Specialty Start Date End Date Radha Mckeon MD [address] [place] [address] PCP - General 09/23/10 documented as of this encounter
--- OUTSIDE RECORDS SUMMARY | 2024-07-24 17:27 | XMS_ITS | Encounter Summary ---
Author Organization [facility] [place] [place] [address] Care Team Providers Care Immunology Specialist Name Role Phone Radha Mckeon MD Primary Care Provider [phone] Encounter Details Date Type Department Care Team (Late st Contact Info) Description 08/01/2019 External Results Cardiology at [address] [phone] Malik Vaughan, DO [address] [place] [address] Social History Tobacco Use Types Packs/Day Years [...] EDT Hospital Encounter Non-Invasive [place] [phone] Arrived 02/22/2025 1:30 PM EDT Appointment Hematology [place] [phone] 02/22/2025 2:30 PM EDT Office Visit Hematology [place] [phone] Ellis Childers MD [facility] DR HEMATOLOGY [place] [address] Felicita Landa APRN [facility] [address] HEMATOLOGY [place] [address] documented as of this encounter Procedures Procedure Name Priority Date/Time Associated Diagnosis Comments EP DEVICE SCAN Routine 07/11/2019 documented in this encounter Results * Scan Doc: EP Device (07/11/2019) Anatomical Region Laterality Modality Other Malik Vaughan DO MEDIA MGR SCAN EXT O RDR/RSLT documented in this encounter Visit Diagnoses Not on filedocumented in this encounter Care Teams Immunology Specialist Relationship Specialty Start Date End Date Radha Mckeon MD [address] [place] [address] PCP - General 09/23/10 documented as of this encounter
--- OUTSIDE RECORDS SUMMARY | 2024-07-24 17:27 | XMS_ITS | Encounter Summary ---
Author Organization [facility] [place] [address] Care Team Providers Care Chemistry Research Assistant Name Role Phone Radha Mckeon MD Primary Care Provider [phone] Encounter Details Date Type Department Care Team (Late st Contact Info) Description 12/18/2019 Orders [place] [address] Sukhjinder Jauregui MD [facility] [place] [address] S/P right total knee arthroplasty revision - [...] AM EDT Hospital Encounter Non-Invasive [place] [phone] Arrived 02/22/2025 1:30 PM EDT Appointment Hematology [place] [phone] 02/22/2025 2:30 PM EDT Office Visit Hematology [place] [address] Ellis Childers MD [facility] DR HEMATOLOGY AND ONCOLOGY [place], [place] [id number] Felicita Landa APRN [facility] [place] [address] documented as of this encounter Results * XR Knee Standing Alignment AP Lat Carmen Right (12/25/2019 12:18 PM EST) Anatomical Region [...] poly swab and patellar revision [place] 11/15/2019 S/P right total knee arthroplasty revision - poly swab and patellar revision [place] 11/15/2019 documented in this encounter Care Teams Chemistry Research Assistant Relationship Specialty Start Date End Date Radha Mckeon MD [address] [place] [address] PCP - General 09/23/10 documented as of this encounter
--- OUTSIDE RECORDS SUMMARY | 2024-07-24 17:27 | XMS_ITS | Encounter Summary ---
Author Organization [facility] [place] [address] Care Team Providers Care Wet Finisher Wool Name Role Phone Radha Mckeon MD Primary Care Provider [phone] Reason for Visit * Reason Comments Pre-op Exam PREOP 11/15/19 REVISI ON RIGHT TKA Encounter Details Date Type Department Care Team (Latest Contact Info) Description 11/09/2019 3:30 PM EST Office [place] [address] Sabino Cruz MD [facility] [place] [address] Preop examination; Failure of total knee replacement, sequela; Chronic anticoagulation Social History Tobacco Use Types Packs/Day Years [...] Time Taken Comments Blood Pressure 138/72 11/09/2019 3:31 PM EST Pulse - - Temperature - - Respiratory Rate - - Oxygen Saturation 96% 11/09/2019 3:31 PM EST Inhaled Oxygen Concentration - - Weight 68.5 kg (151 lb) 11/09/2019 3:31 PM EST Height 182.9 cm (6') 11/09/2019 3:31 PM EST Body Mass Index 20.48 11/09/2019 3:31 PM EST documented in this encounter Progress Notes * Sabino Cruz MD - 11/09/2019 3:30 PM EST Images from the original note were not included. CC: Malik Machado is a 69 y.o. male new patient to the perioperative clinic with the following problems and medications that is being seen in the clinic for consultation at the request of his surgeon Dr. Sukhjinder Jauregui for preoperative risk stratification and management recommendations in anticipation of revision right total knee arthroplasty for symptomatic TKA HPI - Pain - Location - right knee, Quality - aching, Onset - gradual, Duration - several years, Intensity - moderate to severe, Aggravating factors - standing, walking, stepping, bending, Alleviating factors - APAP, rest, topical. Associated : He was working for the [employer] and had to stop in October. Patient Active Problem List Diagnosis Code ??? [...] right lower extremity M79.604 ??? Debility R53.81 ??? Thrombopenia D69.6 ??? Essential hypertension I10 ??? Paroxysmal atrial fibrillation I48.0 Current Outpatient Medications Medication Sig Dispense Refill ??? amoxicillin (AMOXIL) 875 mg Tablet TK 1 T PO BID FOR 7 DAYS 0 ??? lamoTRIgine (LAMICTAL) 25 mg Tablet Take 50 mg by mouth 2 times daily. ??? apixaban (ELIQUIS) 5 mg Tablet Take 5 mg by mouth Twice daily. ??? metoprolol succinate (TOPROL-XL) 100 mg Tablet Sustained Release 24 hr take 1 and 1/2 tablets by mouth daily 135 tablet 3 ??? acyclovir (ZOVIRAX) 200 mg Capsule 1 cap(s) ??? SUMAtriptan (IMITREX) 100 mg Tablet Take 100 mg by mouth as needed for Migraine. Initial dose: 25 mg, 50 mg, or 100 mg (take with fluids). May repeat dose after 2 hours. Max daily dose: 200 mg ??? diclofenac (VOLTAREN) 1 % Gel Apply topically daily as needed. ??? Triamcinolone Acetonide 0.025 % Lotion Apply [...] Tablet Take 500 mg by mouth nightly. ??? oxyCODONE (ROXICODONE) 15 mg Tablet Take 7.5 mg by mouth as needed for Pain. ??? MULTIVITAMIN W-MINERALS/LUTEIN (CENTRUM SILVER ORAL) Take 1 tablet by mouth. ??? Sunset-3 Fatty Acids-Vitamin E (FISH OIL) 1,000 mg Cap Take 2,000 mg by mouth daily. ??? acetaminophen (TYLENOL) 500 mg tablet Take 1,000 mg by mouth as needed. Indications: Headache Disorder, Pain ??? baclofen (LIORESAL) 10 mg tablet Take 10 mg by mouth nightly as needed. ??? simvastatin (ZOCOR) 10 mg tablet Take 10 mg by mouth nightly. ??? predniSONE (DELTASONE) 20 mg Tablet Current Facility-Administered Medications Medication Dose Route Frequency Provider Last Rate Last Dose ??? mupirocin (BACTROBAN) 2 % ointment 1 each 1 each Topical (Top) BID Sukhjinder Jauregui MD Social History Occupational History ??? Not on file Tobacco Use ??? Smoking status: Former Smoker Packs/day: 2.00 Years: 16.00 Pack years: 32.00 Types: Cigarettes Last attempt to quit: 11/09/1982 Years since quittin.0 ??? Smokeless tobacco: Never Used Substance and Sexual Activity ??? Alcohol use: No ??? Drug use: Never ??? Sexual activity: Yes Family History Problem Relation Age of Onset ??? Heart Disease Mother ??? Heart Disease Father ??? Cancer Brother 58 panceratic Review of Systems Constitutional: Negative for chills, diaphoresis and fever. Had weight loss - was only having one balanced meal a day with his work. Respiratory: Negative for cough, shortness of breath and wheezing. Cardiovascular: Negative for chest pain, palpitations and leg swelling. Gastrointestinal: Negative for abdominal pain, anal bleeding and blood in stool. Endocrine: Negative for polydipsia and polyphagia. On levothyroxine since a year. Genitourinary: Negative for dysuria, flank pain and hematuria. Skin: Negative for pallor and rash. Allergic/Immunologic: Negative for environmental allergies and immunocompromised state. Neurological: Negative for syncope and speech difficulty. Does have sporadic double vision which hetakes prn Imitrex for. Concern for mini seizures where he has left foot numbness and heaviness, right and left forearm goose bumps, some have noted him to be flushed and pale and he can feel this going on. Saw neurology and extensive evaluation was unremarkable. She started him on Lamictal and these episodes have been slowing down. He has chronic numbness in the bottom of both feet (had extensiveback surgery). Hematological: Negative for adenopathy. Tolerates Eliquis well without active bleeding Psychiatric/Behavioral: Negative for confusion, decreased concentration and dysphoric mood. Allergies: Allergies Allergen Reactions ??? Amitriptyline Hcl Palpitations ??? Atorvastatin Other (See Comments) Adverse effect caused liver enzyme abnormalitiies ??? Flecainide Other (See Comments) Adverse effect caused TX and QRS prolongation Physical Exam: Last Set of Vitals and Range over past 24 hours: Last value Range last 24 hrs Heart Rate Heart Rate: [62] Blood Pressure BP: 138/72 BP: (138)/(72) SpO2 SpO2: 96 % SpO2: [96 %] Estimated body mass index is 20.48 kg/m?? as calculated from the following: Height as of this encounter: 182.9 cm (6'). Weight as of this encounter: 68.5 kg (151 lb). Physical Exam Constitutional: He is oriented to person, place, and time. He appears well- developed. No distress. HENT: Head: Normocephalic and atraumatic. Mouth/Throat: Oropharynx is clear and moist. Eyes: Right eye exhibits no discharge. Left eye exhibits no discharge. No scleral icterus. Neck: Neck supple. No JVD present. Cardiovascular: Normal rate, regular rhythm and normal heart sounds. Exam reveals no gallop and no friction rub. No murmur heard. Pulmonary/Chest: Effort normal and breath sounds normal. No stridor. No respiratory distress. He has no wheezes, no rales. He exhibits no tenderness. Abdominal: Soft. Bowel sounds are normal. No HSM percussed or palpated. There is no tenderness. There is no rebound and no guarding. Musculoskeletal: He exhibits no edema. Right knee ROM 0-95 with no drift on extension. Neurological: He is alert and oriented to person, place, and time. He displays normal reflexes. He exhibits no resting or intentional tremors Skin: Skin is warm and dry. He is not diaphoretic. No pallor. Has hyperpigmentation over the bilateral shins. Psychiatric: He has a normal mood and affect. His behavior is normal. Judgment and thought content normal. Lab Results Component Value Date WBC 3.8 (L) 11/09/2019 RBC 4.08 (L) 11/09/2019 HGB 12.8 (L) 11/09/2019 HCT 38.2 (L) 11/09/2019 MCV 93.6 (H) 11/09/2019 MCH 31.4 11/09/2019 MCHC 33.5 11/09/2019 PLATELET 105 (L) 11/09/2019 RDWCV 11.7 11/09/2019 Lab Results Component Value Date NA 140 11/09/2019 K 4.5 11/09/2019 CL 105 11/09/2019 CO2 26 11/09/2019 BUN 19 11/09/2019 CREATININE 1.03 11/09/2019 GLUCOSE 95 11/09/2019 CALCIUM 9.7 11/09/2019 Lab Results Component Value Date CRP 4.4 11/09/2019 SEDRATE 34 11/09/2019 Estimated Creatinine Clearance: 67.4 mL/min (based on SCr of 1.03 mg/dL). NM Scan 1. No evidence of infected right total knee arthroplasty. 2. Diffusely increased activity involving the patella component of the right total knee arthroplasty, which, when correlated with the CT findings of osteolysis, raising the question of loosening. 3. Nonspecific small focus of radiotracer uptake along the tibial tray medially and anteriorly, without corresponding CT abnormality. A/P 1. Preop examination 2. Failure of total knee replacement, sequela 3. Chronic anticoagulation He has known thrombocytopenia since December of last year and his platelet count is a little higherthan over past year. He does have a new drop in other cell lines with mildly decreased WBC, RBC andH/H. I reviewed recent note per Dr. Woods at [facility]. I will send my note with above results to her. He reports no gross active bleeding on the Eliquis although this could explain a decrease in H/H and the recent increase in Lamictal could explain a decrease in H/H and WBC (although there are decreased lymphocytes and normal neutrophils). He is eager to proceed with the TKA for improved pain and activity tolerance. He was counseled on the weight loss and is pursuing evaluation per his PCP. Importance of diet was emphasized and he was counseled to aim for a weight gain of 10 lbs over the 2 monthsafter surgery and seek further evaluation per his PCP for any new symptoms like diaphoresis, LAD orif he does not have success with the weight gain. He elects to proceed with the TKA revision. Major Risk Factor per the Revised Cardiac Risk Index (Bold if present) - There is no history of CAD, CHF, CVA or TIA, DM2 on insulin, or a Creatinine >2 Risk diagnosis for MACE (major adverse cardiovascular event = Myocardial infarction, pulmonary edema, ventricular fibrillation, primary cardiac arrest, or complete heart block.) : Low <1% . The patient describes a functional status of 4METs and more (worked until October) and based on the ACC/AHA 2014 guideline no further cardiovascular testing is indicated. ARISCAT/CANET Score - estimates the risk of postoperative pulmonary complications as being low ~3.5%. Per the ACS NSQIP calculator I estimated the following. Patient instructions: Stop fish oil today. Last dose of Eliquis on November 12Wednesday Morning. Continue your other meds as usual. Patient preferences. Oxycodone at 15mg worked best for him in past. Tramadol was not effective He would like a later slot in the day to arrange his ride. [facility] and he has called them already, also called [facility]. RECOMMENDATION: Suggest ordering Oxycodone 5-15mg po q 4 hours prn mild, moderate, severe pain. Start Eliquis at 2.5mg po BID - first dose 6-10 hours after surgery provided there is no surgical contraindication and no blood on spinal and increase to 5mg po BID in 72 hours Continue Lamictal, valacyclovir, statin, prn baclofen, verapamil (hold if SBP<105 or HR<60), metoprolol (hold if SBP<100 or HR<55), PPI. documented in this encounter Plan of Treatment Upcoming Encounters Date Type Department Care Team (Late st Contact Info) Description 08/18/2024 11:00 AM EDT Hospital Encounter Non-[place]vasive [place] [address] Arrived 02/22/2025 1:30 PM EDT Appointment Hematology and Oncology at [address] 02/22/2025 2:30 PM EDT Office Visit Hematology [place] [address] Ellis Childers MD [facility] [address] [place] [address] Felicita Landa APRN [facility] [place] [address] documented as of this encounter Visit Diagnoses Diagnosis Preop examination Preoperative examination, unspecified Failure of total knee replacement, sequela Chronic anticoagulation Encounter for long-term (current) use of anticoagulants documented in this encounter Care Teams Wet Finisher Wool Relationship Specialty Start Date End Date Radha Mckeon MD [address] [place] [address] PCP - General 09/23/10 documented as of this encounter
--- OUTSIDE RECORDS SUMMARY | 2024-07-24 17:27 | XMS_ITS | Encounter Summary ---
Author Organization [facility] [place] [address] Care Team Providers Care Power Generation Technician Name Role Phone Radha Mckeon MD Primary Care Provider [phone] Reason for Visit * Reason Onset Date Comments Questions 12/11/2019 Encounter Details Date Type Department Care Team (Late st Contact Info) Description 12/11/2019 Telephone [place] [address] Skuhjinder Jauregui MD [facility] DR [place] [address] Questions Social History Tobacco Use Types Packs/Day [...] * Telephone Encounter - Ronaldo Kong - 12/11/2019 1:39 PM EST Mr. Machado calls in today and would like to know when his last office visit with [facility]. Reviewed his chart and reported he was last seen on 11/09/2019. He was thankful for this. documented in this encounter Plan of Treatment Upcoming Encounters Date Type Department Care Team (Late st Contact Info) Description 08/18/2024 11:00 AM EDT Hospital Encounter Non[place] [address] Arrived 02/22/2025 1:30 PM EDT Appointment Hematology [place] [address] 02/22/2025 2:30 PM EDT Office Visit Hematology [place] [address] Ellis Childers MD [facility] DR [place]Y [place] [address] Felicita Landa APRN [facility] [address] HEMATOLOGY [place] [address] documented as of this encounter Visit Diagnoses Not on filedocumented in this encounter Care Teams Power Generation Technician Relationship Specialty Start Date End Date Radha Mckeon MD [address] [place] [address] PCP - General 09/23/10 documented as of this encounter
--- OUTSIDE RECORDS SUMMARY | 2024-07-24 17:27 | XMS_ITS | Encounter Summary ---
[place] [address] Care Team Providers Care Didactic Instructor Name Role Phone Radha Mckeon MD Primary Care Provider [phone] Encounter Details Date Type Department Care Team (Late st Contact Info) Description 09/21/2019 Orders Only Cardiology at [address] [phone] Social History Tobacco Use Types Packs/Day Years [...] AM EDT Hospital Encounter Non-[place] [phone] Arrived 02/22/2025 1:30 PM EDT Appointment [place] [phone] 02/22/2025 2:30 PM EDT Office Visit [place] [address] Ellis Childers MD [facility] [address] [place] [address] Felicita Landa APRN [facility] [place] [address] documented as of this encounter Procedures Procedure Name Priority Date/Time Associated Diagnosis Comments CARDIAC DEVICE CHECK - REMOTE Routine 09/21/2019 6:26 PM EST documented in this encounter Results * Cardiac Device Check - Remote (09/21/2019 6:26 PM EST) Date Time Interrogation Session [employer]CO Implantable Pulse Generator What Job Titles Mean [employer] IDCO Implantable Pulse Generator Model [id number] IDCO Implantable Pulse Generator Serial Number [id number] IDCO Type Interrogation Session Remote IDCO Implantable Pulse Generator Type Implantable Diagnostic Monitor IDCO Implantable Pulse Generator Implant Date IDCO Zone Setting Detection Interval 2,000 ms IDCO Zone Setting Detection Interval 3,000 ms IDCO Zone Setting Type Category AT/AF IDCO Zone Setting Type Category VF IDCO Zone Setting Type Category VT IDCO Zone Setting Detection Interval 360 ms IDCO Battery Status OK IDCO Atrial Tachy Statistic Date Time Start IDCO Atrial Tachy Statistic Date Time End IDCO Atrial Tachy Statistic AT/AF [place] Percent 0 % IDCO Episode Statistic Recent Count 0 IDCO Episode Statistic Recent Count 0 IDCO Episode Statistic Recent Count 0 IDCO Episode Statistic Recent Count 0 IDCO Episode Statistic Recent Count 0 IDCO Episode Statistic Type Category Patient Activated IDCO Episode Statistic Recent Count 0 IDCO Episode Statistic Type Category AT/AF IDCO Episode Statistic Recent Date Time Start IDCO Episode Statistic Recent Date Time End IDCO Episode Statistic Recent Date Time Start IDCO Episode Statistic Recent Date Time End IDCO Episode Statistic Recent Date Time Start IDCO Episode Statistic Recent Date Time End [id number] IDCO Episode Statistic Recent Date Time Start [id number] IDCO Episode Statistic Recent Date Time End [id number] IDCO Episode Statistic Recent Date Time Start [id number] IDCO Episode Statistic Recent Date Time End [id number] IDCO Episode Statistic Recent Date Time Start [id number] IDCO Episode Statistic Recent Date Time End [id number] IDCO Episode Statistic Total Count 0 IDCO Episode Statistic Total Count 3 IDCO Episode Statistic Total Count 0 IDCO Episode Statistic Total Count 0 IDCO Episode Statistic Total Count 14 IDCO Episode Statistic Type Category Patient Activated IDCO Episode Statistic Total Count 0 IDCO Episode Statistic Type Category AT/AF IDCO Episode Statistic Total Date Time Start [id number] IDCO Episode Statistic Total Date Time End [id number] IDCO Episode Statistic Total Date Time Start 87751278517636 IDCO Episode Statistic Total Date Time End 66226872223270 IDCO Episode Statistic Total Date Time Start 13021349465910 IDCO Episode Statistic Total Date Time End [id number] IDCO Episode Statistic Total Date Time Start 30043676741531 IDCO Episode Statistic Total Date Time End [id number] IDCO Episode Statistic Total Date Time Start [id number] IDCO Episode Statistic Total Date Time End [id number] IDCO Episode Statistic Total Date Time Start 12917099237638 IDCO Episode Statistic Total Date Time End [id number] IDCO Anatomical Region Laterality Modality Other 09/21/2019 6:26 PM EST Physician Cardiology IMPLANTABLE CARD IAC DEVICE documented in this encounter Visit Diagnoses Not on filedocumented in this encounter Care Teams Didactic Instructor Relationship Specialty Start Date End Date Radha Mckeon MD [address] [place] [address] PCP - General 09/23/10 documented as of this encounter
--- OUTSIDE RECORDS SUMMARY | 2024-07-24 17:27 | XMS_ITS | Encounter Summary ---
[place] [address] Care Team Providers Care Ticketer Name Role Phone Radha Mckeon MD Primary Care Provider [phone] Encounter Details Date Type Department Care Team (Late st Contact Info) Description 10/12/2019 Orders Only Cardiology at [address] [phone] Social History Tobacco Use Types Packs/Day Years [...] AM EDT Hospital Encounter Non-Invasive [place] [phone] Arrived 02/22/2025 1:30 PM EDT Appointment Hematology [place] [phone] 02/22/2025 2:30 PM EDT Office Visit Hematology [place] [address] Ellis Childers MD [facility] DR [place] [address] Felicita Landa APRN [facility] [place] [address] documented as of this encounter Procedures Procedure Name Priority Date/Time Associated Diagnosis Comments CARDIAC DEVICE CHECK - REMOTE Routine 10/12/2019 1:37 AM EST documented in this encounter Results * Cardiac Device Check - Remote (10/12/2019 1:37 AM EST) Date Time Interrogation Session [id number] IDCO Implantable Pulse Generator Fluoroscope Operator [employer] IDCO Implantable Pulse Generator Model [id number] IDCO Implantable Pulse Generator Serial Number [id number] IDCO Type Interrogation Session Remote IDCO Implantable Pulse Generator Type Implantable Diagnostic Monitor IDCO Implantable Pulse Generator Implant Date [id number] IDCO Anatomical Region Laterality Modality Other 10/12/2019 1:37 AM EST Physician Cardiology IMPLANTABLE CARD IAC DEVICE documented in this encounter Visit Diagnoses Not on filedocumented in this encounter Care Teams Ticketer Relationship Specialty Start Date End Date Radha Mckeon MD [address] [place] [address] PCP - General 09/23/10 documented as of this encounter
--- OUTSIDE RECORDS SUMMARY | 2024-07-24 17:27 | XMS_ITS | Encounter Summary ---
Author Organization [facility] [place] [address] Care Team Providers Care Isotope Technician Name Role Phone Radha Mckeon MD Primary Care Provider [phone] Reason for Visit * Auth/Cert Specialty Diagnoses [...] Expiration Date Visits Re quested Visits Authorized [id number] 1 1 Encounter Details Date Type Department Care Team (Late st Contact Info) Description 11/15/2019 12:46 PM EST Anesthesia Event [place] [address] Duglas Alvarez MD [facility] [place] [address] Ame Ibanez MD [facility] [place] [address] Anesthesia Record Procedure Summary Procedure Name Responsible Anesthesiologist Anesthesia Start Time Anesthesia Stop Time @TOTAL KNEE REVISION ARTHROPLASTY, COMPLETE (WRVU 27.11) (Right: Knee) Duglas Alvarez MD 11/15/19 1246 11/15/19 1442 Events Date Time Event Comment 11/15/2019 1202 1246 Start 1253 Spinal 1301 AN Verify 1301 An Start Data 1305 Anesthesia Ready 1320 Procedure Start 1326 Break/Relief In Demian coyEMILY 1356 Break/Relief Out 1434 an stop data 1441 Recovery or ICU Handoff Shannan ent care was transferred to the destination unit staff after review of the patient's medical history, current anesthetic/surgical status and plan, according to the Provider Handoff Checklist. 1442 Stop Meds Name Total Propofol 20 mg Propofol INF 449.02 mg BUpivacaine 0.5% 30 mL tranexamic acid (CYKLOKAPRON) 1,116 mg i n sodium chloride 0.9% 111.16 mL 1,116 mg ceFAZolin (ANCEF) 2g in dextrose 5% 100 mL 2 g Mepivacaine 2% 60 mg ePHEDrine 40 mg lactated ringers infusion 1,000 mL * Agents Name O2 Air N2O O2 Auxiliary Flowmeter 1 * Blood No [...] Almanzar RN 08/06/21 1650 by Cody Lawrence (RETIRED) Peripheral IV Line - Single Lumen 11/15/19; 1206; cephalic vein (lateral side of arm), left; [id number] catheter system; 20 gauge; intradermal injection, tolerated well, appears comfortable, age-appropriate response; 0; 11/17/19; 1206 01/15/20 1206 by Chary Meadows RN 11/17/19 1206 by Jesse Adkins APRN Incision 11/15/19; 1320; knee ; vertical; 06/29/22 (LDA cleanup utility RA#[id number]); 1715 (LDA cleanup utility RA#[id number]) 11/15/19 1320 by Angelic Lorenzana RN 06/29/22 1715 by Jonathon Zacarias documented [...] OR Notes * Anesthesia Postprocedure Evaluation - Ame Ibanez - 11/15/2019 2:48 PM EST Department of Anesthesiology Post-procedure Note Patient: Malik Machado Procedure Summary Date: 11/15/19 Room / Location: [address] MAIN OR Anesthesia Start: 1246 Anesthesia Stop: 1442 Procedures: @TOTAL KNEE REVISION ARTHROPLASTY, COMPLETE (WRVU 27.11) (Right Knee) MODIFIER TC3 ROTATING PLATFORM DEPUY (N/A Knee) Diagnosis: (failed TKA - loose patella) Surgeon: Sukhjinder Jauregui MD Responsible Provider: Duglas Alvarez MD Anesthesia Type: spinal ASA Status: 3 All Anesthesia Providers: Anesthesiologist: Duglas Alvarez MD Anesthesia Fellow: Ame Ibanez MD Student Nurse Electroformer: Maegan Romano Vitals Value Taken Time BP 136/66 11/15/2019 2:45 PM Temp Pulse 60 11/15/2019 2:47 PM Resp 17 11/15/2019 2:47 PM SpO2 100 % 11/15/2019 2:47 PM Pain Level 7 (chronic pain in the back) Vitals shown include unvalidated device data. Patient Location: PACU/[facility] Level of Consciousness: Awake and Alert Pain Management: Satisfactory Analgesia PONV: None Cardiovascular Status: At Baseline and Hemodynamically Stable Respiratory Status: At Baseline and Room Air Postoperative Fluid Status: Intravascular EUvolemia Possible Anesthetic Complications: NONE apparent at time of evaluation Final Primary Anesthesia Type: Spinal (The anesthetic type performed was the same as planned.) Comments: Ame Ibanez MD * Anesthesia Procedure Notes - Guillermo Hauser MD - 11/15/2019 12:49 PM EST Associated Order(s): Anesthesia Block Anesthesia Block Performed by: Guillermo Hauser MD Authorized by: Caleb Kelley MD Start Time: 11/15/2019 12:23 PM End Time: 11/15/2019 12:34 PM The patient was greeted; the risks and benefits of the procedure were reviewed. Indication: Post-op Pain Control Post-op pain management at the request of surgeon. Block Type: Adductor canal block Laterality: Right Position: Supine Prep: Chlorhexidine, patient draped and mask, cap, sterile gloves, hand hygeine Skin Anesthetic: Lidocaine 1% dose: 2 [id number]-higwz 21 10 cm Single-Shot: Single-shot BUpivacaine 0.5%, 30 mL injection painful and no complications Resident/DUMBWAITER OPERATOR:: Guillermo Hauser MD Attending Physician:: Caleb Kelley MD With MD Prasanna, orthopaedics resident. Negative aspiration, no complications, pain on injection with no shooting pains down leg. Toleratedprocedure otherwise well. * Anesthesia Preprocedure Evaluation - Duglas Alvarez MD - 11/14/2019 5:31 PM EST Pre-Anesthesia Evaluation for: Malik Machado a 69 y.o. male. Procedure(s): @TOTAL KNEE REVISION ARTHROPLASTY, COMPLETE (WRVU 27.11) MODIFIER TC3 ROTATING PLATFORM DEPUY Patient Active Problem List Diagnosis ??? A-fib --Recurrent AF --S/P cardioversions x 3 (09/2005, 01/2006, 07/2007). --AF that has resolved spontaneously (12/2006, etc). 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 --Flecainide stopped after 4 doses due to VT/QRS prolongation, 12/2007. --Started on dofetilide 500mcg BID [...] of periodic palpitations 2015. -- Admitted to [facility] 08/27/16, with A. fib at a rate of 112 bpm on metoprolol 100 mg daily/verapamil 180 mg daily; DCCV; metoprolol increased to 150 mg daily; started Eliquis. --Echo 11/2016: EF 58%. --Repeat afib ablation 11/23/2016: Veins still isolated; posterior wall isolation performed, stage IV. ??? Hypertension ??? Thrombopenia ??? Essential hypertension ??? Paroxysmal atrial fibrillation ??? Failed total knee arthroplasty ??? Pain of right lower extremity ??? Debility ??? Lightheadedness ??? Adverse drug effects --Amitriptyline (palpitations), Lipitor (liver enzyme abnormalities), flecainide (VT/QRS prolongation noted 12/2007). ??? History of surgery [...] IMPLANTS USED: All implants were from the IPLogic total knee system. 1. A size 4 [...] medication ??? Irregular heart beat afib ??? intermediate current use of opiate analgesic oxycodone, [...] CURVED Procedure Date: 01/14/2010 ??? JOINT REPLACEMENT [id number] ??? PACEMAKER IMPLANT loop recorder ??? XR JOINT ASPIRATION - LARGE JOINT RIGHT Right 01/02/2019 XR Fluoro Guided Joint Aspiration Large Right 01/02/2019 [facility] RAD XRAY Social History Tobacco Use ??? Smoking status: Former Smoker Packs/day: 2.00 Years: 16.00 Pack years: 32.00 Types: Cigarettes Last attempt to quit: 11/09/1982 Years since quittin.0 ??? Smokeless tobacco: Never Used Substance Use Topics ??? Alcohol use: No Social History Substance and Sexual Activity Drug Use Never Allergies Allergen Reactions ??? Amitriptyline Hcl Palpitations ??? Atorvastatin Other (See Comments) Adverse effect caused liver enzyme abnormalitiies ??? Flecainide Other (See Comments) Adverse effect caused VT and QRS prolongation Medications: MAR and/or home medications have been reviewed. Physical Exam: There were no vitals filed for this visit. There is no height or weight on file to calculate BMI. Airway Assessment: Mallampati: II TM distance: >3 FB Neck ROM: full Cardiovascular Assessment: Rhythm: regular Rate: normal cardiovascular exam normal Pulmonary Assessment: (-) rhonchi, wheezes and decreased breath sounds pulmonary exam normal Dental Assessment: (+) upper dentures and lower dentures Misc Assessment: Patient is wearing No contact(s). IV access: Peripheral line Anesthesia Plan: ASA 3 spinal, with a(n) intravenous induction Allergy: -- Amitriptyline Hcl -- Palpitations -- Atorvastatin -- Other (See Comments) -- Adverse effect caused liver enzyme abnormalitiies -- Flecainide -- Other (See Comments) -- Adverse effect caused VT and QRS prolongation BP Readings from Last 3 Encounters: 11/09/19 : 138/72 11/09/19 : 138/72 05/29/19 : 135/80 Labs: Lab Results Component Value Date WBC 3.8 (L) 11/09/2019 HGB 12.8 (L) 11/09/2019 HCT 38.2 (L) 11/09/2019 MCV 93.6 (H) 11/09/2019 PLATELET 105 (L) 11/09/2019 Lab Results Component Value Date NA 140 11/09/2019 K 4.5 11/09/2019 CL 105 11/09/2019 CO2 26 11/09/2019 BUN 19 11/09/2019 CREATININE 1.03 11/09/2019 GLUCOSE 95 11/09/2019 GLUCFASTING 105 (H) 11/23/2016 CALCIUM 9.7 11/09/2019 ESTGFR 75 11/09/2019 Lab Results Component Value Date ALT 55 12/15/2012 AST 75 (H) 12/15/2012 ALKPHOS 81 12/15/2012 BILITOT 0.9 12/15/2012 BILIDIR 0.2 12/15/2012 ALBUMIN 4.1 12/15/2012 PROT 6.9 12/15/2012 Lab Results Component Value Date PT 13.7 (H) 11/09/2019 PTT 38 (H) 11/09/2019 No results found for: TSH, P3ZEQYX, TT4, THYROIDAB No results found for: HA1C Glucose Lvl Date Value Ref Range Status 11/09/2019 95 65 - 199 mg/dL Final Comment: Diabetes: >=200 mg/dL plus symptoms 69 yo 69kg male presenting for Right total knee revision arthroplasty. Medical history notable for tobacco use, chronic back pain (taking oxycodone 15mg PRN), s/p multiple lumbar surgeries, thrombocytopenia (80s-120; most recently 105), HTN (verapamil, metoprolol), HLD (simvastatin), GERD (well- controlled; omeprazole), RBBB and paroxysmal A-fib s/p ablation in 2012 and 2016; on metoprolol and Eliquis (last dose taken 11/11/19). ?? Prior GA in 2017 Grade 2 view with Martinez 2 and easy mask. ECG 02/23/18: Sinus bradycardia Right bundle branch block Left anterior fascicular block Bifascicular block TTE from 11/24/16: Normal LV size and function; LVEF 58%; no wall-motion abnormalities. TTE from 04/2016 with EF 64%, no RWMAs, no HD significant valvular disease. Labs reviewed: H/H ; Plt 105; INR 1.2 NPO status: Appropriate >4 METS functional capacity No active GERD Last dose of Eliquis on Wednesday11/11/19 Plan for Spinal. GA as backup. Preop AC PNB for postop pain control. Standard ASA monitors. Adequate PIV access. The patient was informed of the risks, benefits and alternatives of anesthesia. These risks included, but were not limited to, post-operative nausea and/or vomiting, pain, sore throat, dental/lip trauma, and other rare but serious complications such as major organ damage, awareness, severe allergicreactions, position-related nerve injuries, corneal abrasion/blindness and need blood transfusions.All questions were sought and answered. Consent was signed and placed in chart. Region - Other Informed Consent: Anesthetic plan and risks discussed with patient. Use of blood products discussed with patient who consented to blood products. Plan discussed with DUMBWAITER OPERATOR and attending. PAT Clinic Note documented in this encounter Miscellaneous Notes * Addendum Note - Zia Pope - 11/16/2019 12:27 PM EST Addendum created 11/16/19 1227 by Zia Pope MD Sign clinical note documented in this encounter Plan of Treatment Upcoming Encounters Date Type Department Care Team (Late st Contact Info) Description 08/18/2024 11:00 AM EDT Hospital Encounter Non-Invasive [place] [address] Arrived 02/22/2025 1:30 PM EDT Appointment Hematology and Oncology at [place] [address] 02/22/2025 2:30 PM EDT Office Visit Hematology and Oncology at [place] [phone] Ellis Childers MD [facility] [place] [address] Felicita Landa APRN [facility] [place] [address] Pending Results Name Type Priority Associated Diagnoses Date /Time Neuraxial Block Charge Routine 0 1:11 PM EST documented as of this encounter Procedures Procedure Name Priority Date/Time Associated Diagnosis Comments ANE NEURAXIAL APS USE Routine 11/15/2019 1:11 PM EST ANESTHESIA BLOCK Routine 11/15/2019 12:4 9 PM EST documented in this encounter Results * Anesthesia Block (11/15/2019 12:49 PM EST) Narrative Caleb Kelley MD - 11/15/2019 12:49 PM EST Guillermo Hasuer MD ? 11/15/2019 12:51 PM Anesthesia Block Performed by: Guillermo Hauser MD Authorized by: Caleb Kelley MD Start Time: ??11/15/2019 12:23 PM End Time: ??11/15/2019 12:34 PM The patient was greeted; the risks and benefits of the procedure were reviewed. ?? Indication: ??Post-op Pain Control Post-op pain management at the request of surgeon. ?? Block Type: ??Adductor canal block Laterality: ??Right Position: ??Supine Prep: ??Chlorhexidine, patient draped and mask, cap, sterile gloves, hand hygeine Skin Anesthetic: ??Lidocaine 1% dose: ??2 [id number]-utcdl 21 10 cm Single-Shot: ??Single-shot BUpivacaine 0.5%, 30 mL injection painful and no complications ?? Resident/DUMBWAITER OPERATOR:: ??Guillermo Hauser MD Attending Physician:: ??Caleb Kelley MD With MD Prasanna, orthopaedics resident. Negative aspiration, no complications, pain on injection with no shooting pains down leg. Tolerated procedure otherwise well. Caleb Kelley MD CAR WASH ATTENDANT [facility] documented in this encounter Visit Diagnoses Not on filedocumented in this encounter Administered Medications Inactive Administered Medications - up to 3 most recent administrations Medication Order MAR Action Action Date Dose Rate Site BUpivacaine (PF) (MARCAINE) 0.5 % (5 mg/mL) injection Starting on Wed11/15/19 at 1249, Until Wed11/15/19 at 1249, Anesthesia Intra-op, Routine Given 11/15/2019 12:49 PM EST 30 mLs ceFAZolin (ANCEF) 2g in dextrose 5% 100 mL 2 g, Intravenous, EVERY 3 HOURS, 1 dose, First dose on Wed11/15/19 at 1145, Administer over 30 Minutes, Redose after 3 hours., Intra-Operative (Intra-Procedure), Indication for (Active or Suspected): Prophylaxis Given 11/15/2019 1:06 PM EST 2 g ePHEDrine 5 mg/mL multi-dose injection PRN, Starting on Wed11/15/19 at 1318, Until Wed11/15/19 at 1444, Anesthesia Intra-op, Routine Given 11/15/2019 1:59 PM EST 10 mg Given 11/15/2019 1:44 PM EST 10 mg Given 11/15/2019 1:33 PM EST 10 mg lactated ringers infusion 1,000 mL, at 100 mL/hr, Intravenous, CONTINUOUS, Starting on Wed11/15/19 at 1145, Until Wed11/15/19 at 1609, Day of Surgery (Day of Procedure) New Bag 11/15/2019 2:21 PM EST New Bag 11/15/2019 12:07 PM EST 1,000 mLs 100 mL/hr mepivacaine (PF) 20 mg/mL (2 %) injection Intraspinal, Starting on Wed11/15/19 at 1255, Until Wed11/15/19 at 1255, Anesthesia Intra-op, Routine Given 11/15/2019 12:55 PM EST 60 mg propofol (DIPRIVAN) 10 mg/mL bolus injection (Anesthesia) Intravenous, PRN, Starting on Wed11/15/19 at 1306, Until Wed11/15/19 at 1444, Anesthesia Intra-op Given 11/15/2019 1:06 PM EST 20 mg propofol (DIPRIVAN) infusion Intravenous, CONTINUOUS PRN, Starting on Wed11/15/19 at 1304, Until Wed11/15/19 at 1444, Anesthesia Intra-op, Routine Rate/Dose Change 11/15/2019 1:53 PM EST 60 mcg/kg/min 24.7 mL/hr Rate/Dose Change 11/15/2019 1:28 PM EST 75 mcg/kg/min 30.8 mL/hr Rate/Dose Change 11/15/2019 1:10 PM EST 100 mcg/kg/min 41. 1 mL/hr tranexamic acid (CYKLOKAPRON) 1,116 mg in sodium chloride 0.9% 111.16 mL 1,116 mg (15 mg/kg/dose ? 74.4 kg), Intravenous, ONCE, 1 dose, On Wed11/15/19 at 1145, Administer over 30 Minutes, Day of Surgery (Day of Procedure) New Bag 11/15/2019 1:06 PM EST 1,116 mg documented in this encounter Care Teams Isotope Technician Relationship Specialty Start Date End Date Radha Mckeon MD [address] [place] [address] PCP - General 09/23/10 documented as of this encounter
--- OUTSIDE RECORDS SUMMARY | 2024-07-24 17:27 | XMS_ITS | Encounter Summary ---
Author Organization [facility] [place] [address] Care Team Providers Care Bottle Label Inspector Name Role Phone Radha Mckeon MD Primary Care Provider [phone] Encounter Details Date Type Department Care Team (Late st Contact Info) Description 09/04/2019 Telephone Cardiology at [address] [address] Marissa Hutchison, RN Social History [...] Telephone Encounter - Marissa Hutchison RN - 09/04/2019 9:40 AM EST He called because he is concerned that his remote monitor for his ILR was not and working and that it has become very prominent since he has lost 30 lbs. He does not have any signs of erosion at the site and it is not painful, I encouraged him to monitor for any redness. He has had many symptoms offeeling lightheaded I encouraged him to do a symptom activation and send a manual transmission if this recurs. His ILR has been transmitting since Sep 03 and appears to be working he has not triggeredany of the set parameters. He was also concerned about wearing a badge with magnets at work I encouraged him to try and keep it away from being directly over the device but really should not interfere documented in this encounter Plan of Treatment Upcoming Encounters Date Type Department Care Team (Late st Contact Info) Description 08/18/2024 11:00 AM EDT Hospital Encounter Non-[place] [address] Arrived 02/22/2025 1:30 PM EDT Appointment Hematology and Oncology at [place] [address] 02/22/2025 2:30 PM EDT Office Visit Hematology and Oncology at [place] [address] Ellis Childers MD [facility] DR H[place]Y [place] [address] Felicita Landa APRN [facility] [address] HEMATOLOGY [place] [address] documented as of this encounter Visit Diagnoses Not on filedocumented in this encounter Care Teams Bottle Label Inspector Relationship Specialty Start Date End Date Radha Mckeon MD [address] [place] [address] PCP - General 09/23/10 documented as of this encounter
--- OUTSIDE RECORDS SUMMARY | 2024-07-24 17:27 | XMS_ITS | Encounter Summary ---
Author Organization [facility] [place] [address] Care Team Providers Care Right Of Way Man Name Role Phone Radha Mckeon MD Primary Care Provider [phone] Encounter Details Date Type Department Care Team (Late st Contact Info) Description 11/08/2019 Telephone Cardiology at [address] [address] Malia Tsai RN Social History [...] Telephone Encounter - Malia Tsai RN - 11/08/2019 3:59 PM EST Pt calling related to upcoming total knee revision surgery next Wednesday (11/15/19) which will be performed by Dr. Jauregui Pt has OV appt tomorrow w/ Dr. Jauregui in relation to upcoming surgery. Pt wanted to call to makeM. Robb (associate provider pt sees in EP) aware of his surgery & also to ensure that it was reasonable to hold his Eliquis for 5 days if necessary for the procedure (would begin hold this Friday 11/10) Denies recent cardioversions, ablations & no prior history of stroke. [id number] (age & HTN). Discussed surgery & anticoagulation w/ M. Clarisse who was agreeable of hold. Notified pt who verbalized understanding & was agreeable to advisement. documented in this encounter Plan of Treatment Upcoming Encounters Date Type Department Care Team (Late st Contact Info) Description 08/18/2024 11:00 AM EDT Hospital Encounter Non-[place] [address] Arrived 02/22/2025 1:30 PM EDT Appointment Hematology and Oncology at [place] [address] 02/22/2025 2:30 PM EDT Office Visit Hematology and Oncology at [place] [address] Ellis Childers MD [facility] [address] [place] [address] Felicita Landa APRN [facility] [address] [place] [address] documented as of this encounter Visit Diagnoses Not on filedocumented in this encounter Care Teams Right Of Way Man Relationship Specialty Start Date End Date Radha Mckeon MD [address] [place] [address] PCP - General 09/23/10 documented as of this encounter
--- OUTSIDE RECORDS SUMMARY | 2024-07-24 17:27 | XMS_ITS | Encounter Summary ---
Author Organization [place] [address] Care Team Providers Care Security Rover Name Role Phone Radha Mckeon MD Primary Care Provider [phone] Encounter Details Date Type Department Care Team (Late st Contact Info) Description 08/28/2019 Telephone [place] [phone] PA [facility] DR [place] [address] Social History Tobacco Use Types Packs/Day Years [...] Telephone Encounter - [address] PA - 08/28/2019 12:07 PM EDT I did call the patient, per his request. He has several questions in regards to his potential procedure. He inquires about complications. Reviewed risks of infection, fracture, dislocation of the patella, injury to the extensor mechanism. We reviewed individually how each of these are treated. He inquires about concerns for potential for improvement. We discussed we can offer no guarantee of these revisions. In terms of his work-up, he is having severe anterior knee pain, he does have signs andsymptoms of a loose patellar component and ostial lysis. We discussed that we would likely inspect his knee, specifically his femoral and tibial component, as well as his patellar component. We wouldlikely revise the patellar femoral component, curette out the ostial lysis, and consider packing ofbone graft. We discussed recovery, time off from work. We discussed monitoring for improvement gradually over time. He also does have chronic back pain, and referred pain could be part of his symptoms that he is feeling, as there is no guarantee that he will be completely cured of his knee pain. Heis receptive to this, and he is leaning heavily towards proceeding with surgery. documented in this encounter Plan of Treatment Upcoming Encounters Date Type Department Care Team (Late st Contact Info) Description 08/18/2024 11:00 AM EDT Hospital Encounter Non-Invasive [place] [phone] Arrived 02/22/2025 1:30 PM EDT Appointment Hematology [place] [phone] 02/22/2025 2:30 PM EDT Office Visit Hematology [place] [phone] Ellis Childers MD [facility] HEMATOLOGY [place] [address] Felicita Landa APRN [facility] HEMATOLOGY [place] [address] documented as of this encounter Visit Diagnoses Not on filedocumented in this encounter Care Teams Security Rover Relationship Specialty Start Date End Date Radha Mckeon MD [address] [place] [address] PCP - General 09/23/10 documented as of this encounter
--- OUTSIDE RECORDS SUMMARY | 2024-07-24 17:27 | XMS_ITS | Encounter Summary ---
Author Organization Formerly [facility] [place] [address] Care Team Providers Care Lunchroom Food Service Supervisor Name Role Phone Radha Mckeon MD Primary Care Provider [phone] Reason for Visit * Auth/Cert Specialty Diagnoses [...] Expiration Date Visits Re quested Visits Authorized [id number] 1 1 Encounter Details Date Type Department Care Team (Late st Contact Info) Description 11/15/2019 12:56 PM EST - 11/15/2019 3:24 PM EST Surgery [place] [id number] Sukhjinder Jauregui MD [facility] DR [place] [address] @TOTAL KNEE REVISION ARTHROPLASTY, COMPLETE (WRVU 27.11) Social History Tobacco Use Types Packs/Day Years [...] Sign Reading Time Taken Comments Blood Pressure 130/80 11/15/2019 3:15 PM EST Pulse 54 11/15/2019 3:15 PM EST Temperature 36.5 ??C (97.7 ??F) 11/15/2019 2:38 PM ES T Respiratory Rate 13 11/15/2019 3:15 PM EST Oxygen Saturation 99% 11/15/2019 3:15 PM EST Inhaled Oxygen Concentration - - Weight - - Height - - Body Mass Index - - documented in this encounter Discharge Summaries * Janae Antonio P, [employer] - 11/15/2019 2:56 PM EST Images from the original note were not included. Discharge Summary Patient Name: Malik Machado Patient Age: 69 y.o. Language: Barbadian Race: White Ethnicity: Not nor Admit date: 11/15/2019 Discharge date and time: 11/17/2019 Attending Physician: Sukhjinder Jauregui MD Discharge Physician: Sukhjinder Jauregui MD Follow-up Recommendations for Providers: Taper narcotics as able. See discharge instructions for additional details. Future Appointments Date Time Provider Department Center 12/25/2019 12:00 PM [facility] DX ROOM 3 Xray [facility] Rad 12/25/2019 1:00 PM Sukhjinder Jauregui MD [facility] ORTH 3C [facility] Inpatient Provider Contact Information: Sukhjinder Jauregui MD Orthopedics: [phone] After hours and weekends, call [facility] Talent Development Coordinator, , and have the Orthopedic resident paged. [...] Fellow * Librado Way PA - Physician Gaming Table Operator Procedure(s): RIGHT TOTAL KNEE REVISION ARTHROPLASTY, COMPLETE MODIFIER TC3 ROTATING PLATFORM Project InsidersUY Intraoperative Findings: No gross evidence of infection [...] controlled on oral medications. Discharge to: Rehab [facility] [address] [place] [address] [id number] Updated Allergies/ADRs: Allergies Allergen Reactions ??? Amitriptyline Hcl Palpitations ??? Atorvastatin Other (See Comments) Adverse effect caused liver enzyme abnormalitiies ??? Flecainide Other (See Comments) Adverse effect caused NH and QRS prolongation Immunizations Given this Hospitalization: [...] fiber while on narcotic pain meds. 4. Brogan/sutures: No external zo or sutures inplace. Sutures are internal and [...] bowel movement. You can also take an unof-ywk-nzytcje medication, Miralax if needed to combat constipation. [...] 1. You do NOT have any external zo or sutures in place. Your sutures are [...] as much as possible. Call your doctor ([phone]) if you develop: 1. Fever greater than 100.5 2. Severe nausea or vomiting 3. Increasing pain that is not controlled by pain medications 4. Increasing redness, swelling, or drainage from incisions 5. Change in sensation FOLLOW-UP APPOINTMENTS: 1. You will have follow-up appointments at [facility] as indicated below in Future Appointment and Orders. 2. You will need to have x-rays prior to your follow-up appointment on 12/25/2019. Please come to Radiology, desk 3T, 1 hour BEFORE that appointment for those x-rays. Future Appointments Date Time Provider Department Center 12/25/2019 12:00 PM [facility] DX ROOM 3 Xray [facility] Rad 12/25/2019 1:00 PM Sukhjinder Jauregui MD [facility] ORTH 3C [facility] If you have questions or concerns: Wednesday through Wednesday, 8 AM - 5 PM, please call Dr. Sukhjinder Jauregui MD's office at . If it is after 5 PM, the weekend, or holidays, please call and ask to speak with theOrthopedic resident on-call. General Instructions None Future Appointments and Orders Future Appointments and Orders Future Appointments Provider Department Dept Phone 12/25/2019 12:00 PM [facility] DX ROOM 3 XRay at [facility] Arrive at: [employer] Area 3T [phone] Please go to [employer] [facility] 3T ([place] Location). 12/25/2019 1:00 PM Sukhjinder Jauregui MD Orthopaedics at [facility] Arrive at: [employer] [facility] 3C [phone] Primary Care Provider: Radha Mckeon MD [phone] Discharge References/Attachments None documented in this encounter Discharge Instructions * Patient Instructions* Janae Antonio, [employer] - 11/15/2019 2:58 PM EST Activity: 1. [...] bowel movement. You can also take an arur-djx-gbapalb medication, Miralax if needed to combat constipation. [...] 1. You do NOT have any external zo or sutures in place. Your sutures are [...] incision open to air or lightly covered. [facility]: Remember that ICE and elevation are very important after surgery to help decrease swelling and control pain. Use ICE for 20-30 minutes at a time and keep your leg elevated as much as possible. Call your doctor ([phone]) if you develop: 1. Fever greater than 100.5 2. Severe nausea or vomiting 3. Increasing pain that is not controlled by pain medications 4. Increasing redness, swelling, or drainage from incisions 5. Change in sensation FOLLOW-UP APPOINTMENTS: 1. You will have follow-up appointments at [facility] as indicated below in Future Appointment and Orders. 2. You will need to have x-rays prior to your follow-up appointment on 12/25/2019. Please come to Radiology, desk , 1 hour BEFORE that appointment for those x-rays. Future Appointments Date Time Provider Department Center 12/25/2019 12:00 PM [facility] DX ROOM 3 Xray [facility] Rad 12/25/2019 1:00 PM Sukhjinder Jauregui MD [facility] ORTH [address] [place] [address] If you have questions or concerns: Wednesday [...] 11/17/2019 12:58 PM EST Report called to [employer]. All questions answered to their satisfaction. * Deborah Guo - 11/17/2019 11:18 AM EST Office of Care Management/Matchbook Assembler Patient Name: Malik Machado : 1950 [facility] for a 1230pm transport. Ambulance will need: Medicare ambulance form completed and signed (MD or Regulatory Administrator RN/MASTER BREWER) Copy of patient demographics [place] Out of Hospital DNR/DNI order, if active MD to report to Dr. Tan at [phone]. Please call Nursing Report to [phone], ask for glass maker. Info to accompany patient: Narcotic Prescriptions Copies of Medication Administration Records and IV sheets for past 10 days. Plan: Matchbook Assembler will be available to the patient and Regulatory Administrator-RN and/or Social Workerfor further assistance. Patient will be discharged to: [address] [id number] Deborah Guo, Matchbook Assembler * Dilcia Coe RN - 11/17/2019 11:14 AM EST Patient is medically ready for discharge today. Patient accepted bed offer at: [facility] Acute Rehabilitation and Sub-Acute (Swing) Rehab Levels of Care [address] [place] [phone] Transportation: ambulance. Ambulance transportation is medically necessary [...] denies n/v. Voiding without difficulty. Going to [facility]. O: Temp: [36.4 ??C (97.5 ??F)-36.6 [...] Dressings: Meplex - Diet: regular - Dispo: [facility] Librado Pan MD 11/17/2019 * Zia [...] was instructed to contact Regional Anesthesia Team ([id number]) for any unresolved sensory or motor deficits. ?? Thank you for the opportunity to have participated in the care of this patient. 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 Roommatemade night difficult as he [...] PT Librado Pan MD 11/16/2019 * Vandana Zuniga RN - 11/15/2019 6:59 PM EST Pt lethargic since PACU, falling asleep in conversation intermittently. Pt has been able to void small amounts w/ PVR. Low temps as documented, see doc flow- ortho team and life safety RN aware. Warmblankets appliedx2. * Jerzy Pappas MD - 11/15/2019 5:37 PM EST ORTHOPAEDIC SURGERY INPATIENT PROGRESS NOTE Patient Name: Malik Machado Age: 69 y.o. Surgery/Issue: Right Total [...] Time Provider Department Center 12/25/2019 12:00 PM [facility] DX ROOM 3 MH Xray [facility] Rad 12/25/2019 1:00 PM Sukhjinder Jauregui MD [facility] ORTH [address] [place] [address] * Vandana Zuniga, RN - 11/15/2019 4:44 PM EST Pt [...] 24-Hour Pre-Operative H&P Update Malik Machado 1950 [id number] Patient seen in pre-op holding area today. [...] documented. * Plan of Care - Elva Foster PT - 11/16/2019 1:30 PM EST Physical [...] medication ??? Irregular heart beat afib ??? residential current use of opiate analgesic oxycodone, prescribed [...] CURVED Procedure Date: 01/14/2010 ??? JOINT REPLACEMENT [id number] ??? PACEMAKER IMPLANT loop recorder ??? PRO REVISE KNEE JOINT REPLACE, ALL PARTS Right 11/15/2019 @TOTAL KNEE REVISION ARTHROPLASTY, COMPLETE (WRVU 27.11) performed by Sukhjinder Jauregui MD at [facility] MAIN OR ??? XR JOINT ASPIRATION - LARGE JOINT RIGHT Right 01/02/2019 XR Fluoro Guided Joint Aspiration Large Right 01/02/2019 [facility] RAD XRAY Social History: Patient lives w/ [...] reports this as his baseline); 6 - 810 right knee/ thigh pain with sharp,spasmodic pain [...] Minutes, Physical Therapy: 45(eval and therex) ELVA FOSTER PT Pager: [phone] Physical Therapy Inpatient Rehabilitation Department * Plan [...] ??? Irregular heart beat afib ??? 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 JOINT REPLACEMENT [id number] ??? PACEMAKER IMPLANT loop recorder ??? PRO REVISE KNEE JOINT REPLACE, ALL PARTS Right 11/15/2019 @TOTAL KNEE REVISION ARTHROPLASTY, COMPLETE (WRVU 27.11) performed by Sukhjinder Jauregui MD at [facility] MAIN OR ??? XR JOINT ASPIRATION - LARGE JOINT RIGHT Right 01/02/2019 XR Fluoro Guided Joint Aspiration Large Right 01/02/2019 [facility] RAD XRAY Social History: Patient lives w/ [...] and educated on use of sock-aid and brush maker, pt performed LB dressing w/ [place], increased [...] 94% 96% Heart Rate 68 77 Pain: 10-9, R knee; pt also reported pain in [...] and measurable assessment of functional outcome. Pager: [phone] Dave Becerril OT 11/16/2019 Occupational Therapy Rehabilitation Department * Initial Assessments - Dilcia Coe, RN - 11/16/2019 10:00 AM EST Office of Care Management Assessment Medical record reviewed. Plan of care and patient status discussed with direct care RN and/or Care Team. Screening: Present on Admission: ??? S/P right total knee arthroplasty revision - poly swab and patellar revision Sarahcheamriti 11/15/2019 Patient has not been admitted to a hospital within the last 30 days. Patient receiving hospital care under Inpatient status. Admission order reviewed. Primary Insurance on file: iOpener 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 Based on discussions with the multi-disciplinary healthcare team, the patient would benefit from inpatient rehabilitation level of care at discharge. ?? I have met with the patient/customer service representative teacher to discuss discharge planning needs. I have provided the [facility], Office of Care Management letter from the Hotel Registration Clerk pertaining to rehab referrals. I have also provided a letter describing our affiliations within the [facility] and educated them about their right to choose where referrals are placed. ?? I reviewed the different levels of rehab including SNF, swing, acute and LTAC with the patient/customer service representative teacher. ?? The patient/customer service representative teacher has been provided a list of facilities within their preferred geographic area. ?? I have requested that the patient/customer service representative teacher provide at least three choices for referral. ?? The patient/customer service representative teacher have requested referrals to: 1. [facility] Acute Rehabilitation and Sub-Acute (Swing) Rehab Levels of Care [address] [place] [id number] [facility] [address] [place] [address] ? Expected date of discharge: 11/16/2019 Note routed to Matchbook Assembler who will communicate referrals to facilities and provide any required information. realty loan specialist/Sales Representative [employer] will continue to follow patient???s progress and remain available if situation changes for coordination of care, psychosocial support and/or discharge planning. Dilcia Coe RN Pager [phone] * Plan of Care - Flory Barraza RN - 11/16/2019 4:22 AM EST Problem: Patient Care Overview Goal: Plan of Care Review Outcome: Ongoing (Interventions Implemented as Appropriate) 11/15/19200411/16/19 1032 Plan of Care Review Progress -- progress [...] Jauregui MD - 11/15/2019 2:10 PM EST [facility] Operative Note Patient Name: Malik Machado : [id number] MR#: [id number] Case Date: 11/15/2019 Surgeon: Surgeon(s) and Role: * Sukhjinder Jauregui MD - Primary * Librado Pan MD - Fellow * Librado Way PA - Physician Gaming Table Operator This case was performed with a Physician Gaming Table Operator as there was no qualified resident available. Librado Pan MD was critical for patient positioning and retraction during the case as well as assisting with closure because no qualified resident was available. Preoperative Diagnosis: Patellar component loosening - right total knee replacement Postoperative Diagnosis: Same Procedure Performed: right Total Knee Arthroplasty Revision - Two Components (CPT 15741) Anesthesia: Spinal, Adductor Canal Block (performed in [...] Implant Name Type Inv. Item Serial No. Solar Energy Engineer Lot No. LRB No. Used Action INSER,SGM,AOX,CVD,SZ4,10 ([id number]) (AutoReq) - [id number] IMPLANTS INSER,SGM,AOX,CVD,SZ4,10 ([id number]) (AutoReq) Roundbox KARLA [id number] Right 1 Implanted CEMEN,BNE,CMW2,GNTA,20GM ([id number]) - [id number] IMPLANTS CEMEN,BNE,CMW2,GNTA,20GM ([id number]) Heatmaps KARLA [id number] Right 1 Implanted CHRISTIAN,PFC,SGM,OVL,3PG,SM,35MM ([id number]) (AutoReq) - [id number] IMPLANTS CHRISTIAN,PFC,SGM,OVL,3PG,SM,35MM ([id number]) (AutoReq) [employer] KARLA [id number] Right 1 Implanted Attestation: Case Date: 11/15/2019 I performed this procedure without the involvement of a resident. SUKHJINDER JAUREGUI MD 11/15/2019 documented in this encounter Plan of Treatment Upcoming Encounters Date Type Department Care Team (Late st Contact Info) Description 08/18/2024 11:00 AM EDT Hospital Encounter Non-Invasive [place] [address] Arrived 02/22/2025 1:30 PM EDT Appointment Hematology [place] [address] 02/22/2025 2:30 PM EDT Office Visit Hematology [place] [address] Ellis Childers MD [facility] DR HEMATOLOGY [place] [address] Felicita Landa APRN [facility] DR HEMATOLOGY [place] [address] documented as of this encounter [...] patella Revise Knee Joint Replace, All Parts (50101) 11/15/2019 1:00 PM EST failed TKA - loose patella documented in this encounter Results * SCAN DOC: IMPLANTABLE DEVICES (11/20/2019 12:00 AM EST) Narrative 11/20/2019 12:00 AM EST Ordered by an unspecified provider. Scanning Provider MEDIA MGR SCAN EXT O RDR/RSLT * (ABNORMAL) Differential, Automated (11/17/2019 4:15 AM EST) Neutrophil % 69.4 % [facility] Neutrophil Absolute 3.77 1.70 - 6.10 x10(3)/mc L [facility] Lymph % 13.1 % [facility] Lymphocytes Abs 0.7(L) 0.9 - 3.2 x10(3)/mc L [facility] Monocyte % 15.8 % [facility] Monocyte Abs 0.9 0.3 - 0.9 x10(3)/mc L [facility] Eos % 0.7 % [facility] Eosinophils Abs 0.0 0.0 - 0.4 x10(3)/mc L [facility] Basophil % 0.6 % [facility] Baso Absolute 0.0 0.0 - 0.1 x10(3)/mc L [facility] Immature Gran % 0.40 % [facility] Comment: Immature granulocytes(IG's)percentage and absolute count will include metamyelocytes, myelocytes, and promyelocytes. Blood smears from CBCs yielding IG's will be scanned manually for concordance. If this scan disagrees with the automated IG or if promyelocytes are noted, a manual differential will be performed. Immature Gran Absolute 0.02 0.00 - 0.04 x10(3)/mc L [facility] Blood specimen (specimen) 11/17/2019 4:15 AM EST 11/17/2019 4:31 AM EST Narrative Resulting Agency Comment Spec In Lab Librado Pan MD HEMATOLOGY ORDERA BLES [facility] [place] [address] * (ABNORMAL) Hemogram (11/17/2019 4:15 AM EST) White Blood Cell 5.4 4.0 - 9.5 x10(3)/mc L [facility] Red Blood Cell 3.00(L) 4.58 - 5.54 x10(6)/mc L [facility] Hemoglobin 9.5(L) 13.7 - 16.5 gm/dL [facility] Hematocrit 28.8(L) 40.5 - 48.5 % [facility] Mean Cell Volume 96.0(H) 82.9 - 93.1 fL [facility] Mean Cell Hemoglobin 31.7 27.5 - 32.1 pg [facility] Mean Cell Hemoglobin Concentration 33.0 32.0 - 35.7 gm/dL [facility] Platelet 69(L) 145 - 357 x10(3)/mc L [facility] RDW Standard Deviation 41.0 36.0 - 45.0 [facility] RDW coefficient of variation 11.9 11.4 - 13.8 % [facility] Mean Platelet Volume 11.9 7.6 - 12.9 fL [facility] NRBC% auto 0.0 % [facility] NRBC Absolute 0.000 0.000 - 0.000 x10(3)/mc L [facility] Blood specimen (specimen) 11/17/2019 4:15 AM EST 11/17/2019 4:31 AM EST Narrative Resulting Agency Comment Spec In Lab Librado Pan MD HEMATOLOGY ORDERA BLES [facility] [place] [address] * Basic Metabolic Panel (non-fasting) (11/17/2019 4:15 AM EST) Glucose 100 65 - 199 mg/dL [facility] Comment:Diabetes: >=200 mg/d L plus symptoms Blood Urea Nitrogen 18 10 - 20 mg/dL [facility] Creatinine 1.15 0.80 - 1.50 mg/dL [facility] Sodium 137 135 - 145 mmol/L [facility] Potassium 4.4 3.5 - 5.0 mmol/L [facility] Comment: Please note: ??Patients with WBC >100,000 may have falsely elevated Potassium levels. ??For accurate Potassium quantification in these patients send serum separator tube (gold top) for subsequent determinations. ??Contact the Clinical Chemistry Laboratory if there are any questions. Chloride 105 98 - 107 mmol/L [facility] Carbon Dioxide 26 22 - 31 mmol/L [facility] Anion Gap 6 5 - 15 mmol/L [facility] Calcium 8.8 8.5 - 10.5 mg/dL [facility] Est Glomerular Filtration Rate 65 >=60 mL/min/1. 73 m?? [facility] Comment: The eGFR was calculated using the CKD-EPI equation. As with all creatinine based estimates of kidney function, eGFR values calculated with the CKD-EPI equation are not accurate in patients with acute kidney failure, extremes of body mass or the acutely ill. http://[employer]/[facility] eGFR 76 >=60 mL/min/1. 73 m?? [facility] Comment: The eGFR was calculated using the CKD-EPI equation. As with all creatinine based estimates of kidney function, eGFR values calculated with the CKD-EPI equation are not accurate in patients with acute kidney failure, extremes of body mass or the acutely ill. http://[employer]/[facility] Blood specimen (specimen) 11/17/2019 4:15 AM EST 11/17/2019 4:31 AM EST Narrative Resulting Agency Comment Spec In Lab Librado Pan MD CHEMISTRY ORDERAB LES Performing Organization Address City/[facility]/ZIP Co de Phone Number [facility] [place] [address] * (ABNORMAL) Differential, Automated (11/16/2019 4:07 AM EST) Neutrophil % 88.9 % [facility] Neutrophil Absolute 7.21(H) 1.70 - 6.10 x10(3)/mc L [facility] Lymph % 3.8 % [facility] Lymphocytes Abs 0.3(L) 0.9 - 3.2 x10(3)/mc L [facility] Monocyte % 6.3 % [facility] Monocyte Abs 0.5 0.3 - 0.9 x10(3)/mc L [facility] Eos % 0.0 % [facility] Eosinophils Abs 0.0 0.0 - 0.4 x10(3)/ L [facility] Basophil % 0.1 % [facility] Baso Absolute 0.0 0.0 - 0.1 x10(3)/mc L [facility] Immature Gran % 0.90 % [facility] Comment: Immature granulocytes(IG's)percentage and absolute count will include metamyelocytes, myelocytes, and promyelocytes. Blood smears from CBCs yielding IG's will be scanned manually for concordance. If this scan disagrees with the automated IG or if promyelocytes are noted, a manual differential will be performed. Immature Gran Absolute 0.07(H) 0.00 - 0.04 x10(3)/mc L [facility] Blood specimen (specimen) 11/16/2019 4:07 AM EST 11/16/2019 4:51 AM EST Narrative Resulting Agency Comment Spec In Lab Librado Pan MD HEMATOLOGY ORDERA BLES Performing Organization Address City/[facility]/ZIP Co de Phone Number [facility] [place] [address] * (ABNORMAL) Hemogram (11/16/2019 4:07 AM EST) White Blood Cell 8.1 4.0 - 9.5 x10(3)/ L [facility] Red Blood Cell 3.31(L) 4.58 - 5.54 x10(6)/mc L [facility] Hemoglobin 10.4(L) 13.7 - 16.5 gm/dL [facility] Hematocrit 31.9(L) 40.5 - 48.5 % [facility] Mean Cell Volume 96.4(H) 82.9 - 93.1 [facility] Mean Cell Hemoglobin 31.4 27.5 - 32.1 pg [facility] Mean Cell Hemoglobin Concentration 32.6 32.0 - 35.7 gm/dL [facility] Platelet 72(L) 145 - 357 x10(3)/[facility] RDW Standard Deviation 41.5 36.0 - 45.0 [facility] LABORATORY RDW coefficient of variation 11.9 11.4 - 13.8 % [facility] Mean Platelet Volume 11.4 7.6 - 12.9 [facility] LABORATORY NRBC% auto 0.0 % [facility] NRBC Absolute 0.000 0.000 - 0.000 x10(3)/[facility] LABORATORY Blood specimen (specimen) 11/16/2019 4:07 AM EST 11/16/2019 4:51 AM EST Narrative Resulting Agency Comment Spec In Lab Librado Pan MD HEMATOLOGY ORDERA BLES [facility] [place] [address] * (ABNORMAL) Basic Metabolic Panel (non-fasting) (11/16/2019 4:07 AM EST) Glucose 145 65 - 199 mg/dL [facility] Comment:Diabetes: >=200 mg/d L plus symptoms Blood Urea Nitrogen 17 10 - 20 mg/dL [facility] Creatinine 0.83 0.80 - 1.50 mg/dL [facility] Sodium 134(L) 135 - 145 mmol/L [facility] Potassium 4.2 3.5 - 5.0 mmol/L [facility] Comment: Please note: ??Patients with WBC >100,000 may have falsely elevated Potassium levels. ??For accurate Potassium quantification in these patients send serum separator tube (gold top) for subsequent determinations. ??Contact the Clinical Chemistry Laboratory if there are any questions. Chloride 103 98 - 107 mmol/L [facility] Carbon Dioxide 25 22 - 31 mmol/L [facility] Anion Gap 6 5 - 15 mmol/L [facility] Calcium 8.6 8.5 - 10.5 mg/dL [facility] Est Glomerular Filtration Rate 91 >=60 mL/min/1. 73 m?? [facility] Comment: The eGFR was calculated using the CKD-EPI equation. As with all creatinine based estimates of kidney function, eGFR values calculated with the CKD-EPI equation are not accurate in patients with acute kidney failure, extremes of body mass or the acutely ill. http://[employer]/DHMCnkf eGFR 106 >=60 mL/min/1. 73 m?? [facility] Comment: The eGFR was calculated using the CKD-EPI equation. As with all creatinine based estimates of kidney function, eGFR values calculated with the CKD-EPI equation are not accurate in patients with acute kidney failure, extremes of body mass or the acutely ill. http://[employer]/[facility]MCnk[facility] Blood specimen (specimen) 11/16/2019 4:07 AM EST 11/16/2019 4:51 AM EST Narrative Resulting Agency Comment Spec In Lab Librado Pan MD CHEMISTRY ORDERAB LES [facility] [place] [address] * Cell Count Body Fluid Knee, Right (11/15/2019 1:27 PM EST) Body Fluid Source Knee, Right [facility] Color, Fld Straw [facility] Appearance, Fld Slightly Hazy [facility] WBC Count, Fld 351 /mcl [facility] Comment: Counts may be inaccurate due [...] chart. Polymorphonuclear cells BF % 15 % [facility] Comment: Polymorphonuclear cell percent and absolute values may contain Neutrophils, Eosinophils, and Basophils. Body fluid smear will be scanned manually for concordance. Mononuclear cells BF % 85 % [facility] Comment: Mononuclear cell percent and absolute values may contain Lymphocytes and Monocytes. Body fluid smear will be scanned manually for concordance. Polymorphonuclear cells BF ABS 53 /[facility] LABORATORY Comment: Polymorphonuclear cell percent and absolute values may contain Neutrophils, Eosinophils, and Basophils. Body fluid smear will be scanned manually for concordance. Mononuclear cells BF ABS 298 /[facility] LABORATORY Comment: Mononuclear cell percent and absolute values may contain Lymphocytes and Monocytes. Body fluid smear will be scanned manually for concordance. Specimen from lower limb (specimen) 11/15/2019 1:27 PM EST 11/15/2019 1:36 PM EST Narrative Resulting Agency Comment Spec In Lab Sukhjinder Jauregui MD BODY FLUIDS AND STO OLS ORDERABLES [facility] [place] [address] documented in this encounter Visit Diagnoses Not on filedocumented in this encounter Admitting Diagnoses Diagnosis S/P revision of total knee, right documented in this encounter Administered Medications Inactive Administered Medications - up to 3 most recent administrations Medication Order MAR Action Action Date Dose Rate Site acetaminophen (Tylenol) tablet 1,000 mg 1,000 mg, Oral, EVERY 6 HOURS SCHEDULED, First dose (after last modification) on Zakia 1/16/20 at 1200, Until Discontinued, Maximum dose of acetaminophen is 4000 mg from all sources in 24 hours., Routine Given 11/17/2019 11:39 AM EST 1,000 mg Given 11/17/2019 5:17 AM EST 1,000 [...] Given 11/16/2019 8:33 PM EST 10 mg BUpivacaine (PF) (MARCAINE) 0.25 % (2.5 mg/mL) injection ONCE PRN, Starting on Wed11/15/19 at 1330, Until Wed11/17/19 at 1559, Intra-Operative (Intra-Procedure), Routine Given 11/15/2019 1:30 PM EST 50 mLs 19- Surgical Site celecoxib (CeleBREX) capsule 200 mg 200 mg, Oral, 2 TIMES DAILY, First dose on Wed11/15/19 at 2100, Until Discontinued, Routine Given 11/17/2019 8:37 AM EST 200 mg Given 11/16/2019 8:32 PM EST 200 mg Given 11/16/2019 9:15 AM EST 200 mg cloNIDine injection ONCE PRN, Starting on Wed11/15/19 at 1329, Until Wed11/17/19 at 1559, Intra-Operative (Intra-Procedure), Routine Given 11/15/2019 1:29 PM EST 50 mcg 19- Surgical Site ketorolac (TORADOL) injection 15 mg 15 mg, Intravenous, EVERY 6 HOURS PRN, Starting on Wed11/15/19 at 1452, Until Wed11/17/19 at 1451, Pain, Routine Given 11/16/2019 3:28 PM EST 15 mg Given 11/16/2019 9:25 AM EST 15 mg ketorolac (TORADOL) injection ONCE PRN, Starting on Wed11/15/19 at 1330, Until Wed11/17/19 at 1559, Intra-Operative (Intra-Procedure), Routine Given 11/15/2019 1:30 PM EST 30 mg 19- Surgical Site lamoTRIgine (LaMICtal) tablet 50 mg 50 mg, [...] Given 11/16/2019 9:11 AM EST 100 mg multivitamin with minerals (THERA-M) tablet 1 [...] Given 11/16/2019 10:34 PM EST 10 mg pantoprazole EC (Protonix) tablet 20 mg [...] Intravenous, EVERY 6 HOURS PRN, Starting on 11/15/19 at 1656, Until Wed11/17/19 at 1559, Nausea, Vomiting, If multiple antiemetics are ordered, use ondansetron first. If ondansetron ineffective use prochlorperazine. , Recovery (Recovery-Hospital Unit), Routine prochlorperazine (Compazine) tablet 10 mg 10 mg, Oral, EVERY 6 HOURS PRN, Starting on 11/15/19 at 1656, [...] Given 11/16/2019 9:15 AM EST 5 mLs documented in this encounter Active and [...] Per MD Order)2008 (Given - Provider: Flory Barraza, TORREY) 033 (Given - Provider: Flory Barraza RN) acetaminophen (Tylenol) tablet 1,000 mg 1,000 mg, Oral, EVERY 6 HOURS SCHEDULED, First dose (after last modification) on Zakia 11/16/19 at 1200, Until Discontinued, Maximum dose of acetaminophen is 4000 mg from all sources in 24 hours., Routine 1312 (Given - Provider: aMgen Castorena)183 (Given - Provider: Irma Ortiz RN)2330 (Given - Provider: Jonathan Viramontes RN) 0517 (Given - Provider: Jonathan Viramontes RN)1139 (Given - Provider: Jesse Adkins, TORREY) acyclovir (Zovirax) tablet 200 mg 200 mg, Oral, 2 TIMES DAILY, First dose on 11/15/19 at 2100, Until Discontinued, Therapeutic interfhange for capsule dose form., Routine, Indication for (Active or Suspected): Prophylaxis 2015 (Given - Provider: Flory Barraza RN) 09 (Given - Provider: Ana Rojas RN)2031 (Given - Provider: Jonathan Viramontes, TORREY) 0837 (Given - Provider: Jesse Adkins, TORREY) apixaban (Eliquis) tablet 2.5 mg 2.5 mg, Oral, 2 TIMES DAILY, 6 doses, First dose on 11/15/19 at 2100, Last dose on 11/18/19 at [...] Prophylaxis 1756 (New Bag - Provider: Vandana Zuniga, TORREY)1826 (Stopped - Provider: Vandana Zuniga RN) 0125 (New Bag - Provider: Flory Barraza RN)0155 (Stopped - Provider: Flory Barraza, TORREY)0913 (New Bag - Provider: Sera Koroma RN)0943 (Stopped - Provider: Sera Koroma RN) celecoxib (CeleBREX) capsule 200 mg 200 mg, Oral, 2 TIMES DAILY, First dose on Wed11/15/19 at 2100, Until Discontinued, Routine 2005 (Given - Provider: Flory Barraza RN) 0915 (Given - Provider: Sera Koroma, TORREY)203 (Given - Provider: Jonathan Viramontes RN) 0837 (Given - Provider: Jesse Adkins RN) celecoxib (CeleBREX) capsule 400 mg (COMPLETED) 400 mg, Oral, ONCE, 1 dose, On Wed11/15/19 at 1145, Administer on arrival to Same Day Program, Day of Surgery (Day of Procedure), Routine 1150 (Given - Provider: Chary [place], TORREY) dexamethasone (Decadron) tablet 4 mg (COMPLETED) 4 mg, Oral, DAILY, 2 doses, First dose on Wed11/15/19 at 1715, Last dose on Wed11/16/19 at 0900, Routine 1756 (Given - Provider: Vandana Zuniga, TORREY) 0913 (Given - Provider: Sera Koroma RN) gabapentin (Neurontin) capsule 300 mg(Linked Group 1) 300 mg, Oral, NIGHTLY, First dose on Wed11/17/19 at 2100, Until Discontinued, Routine gabapentin (Neurontin) capsule 600 mg (COMPLETED) 600 mg, Oral, ONCE, 1 dose, On Wed11/15/19 at 1145, Administer on arrival in Same Day Program, Day of Surgery (Day of Procedure), Routine 1150 (Given - Provider: Chary [place], TORREY) gabapentin (Neurontin) capsule 600 mg (COMPLETED)(Linked Group 1) 600 mg, Oral, NIGHTLY, 2 doses, First dose on Wed11/15/19 at 2100, Last dose on Wed11/16/19 at 2100, Routine 2007 (Given - Provider: Flory Barraza, TORREY) 2031 (Given - Provider: Jonathan Viramontes, TORREY) lamoTRIgine (LaMICtal) tablet 50 mg 50 mg, Oral, 2 TIMES DAILY, First dose on Wed11/15/19 at 2100, Until Discontinued, Routine 2006 (Given - Provider: Flory Barraza RN) 09 (Given - Provider: Sera Koroma RN)2031 (Given - Provider: Jonathan Viramontes, TORREY) 0836 (Given - Provider: Jesse Adkins, TORREY) [...] back) 1139 (Patch Applied - Provider: Jesse Adkins RN) lidocaine (LIDODERM) 5 %(700 mg/patch) Patch Removal(Linked Group 2) Transdermal, EVERY 24 HOURS, First dose on Wed11/16/19 at 2145, Until Discontinued, Remove lidocaine 5 %(700 mg/patch) patch 2100 (Patch Removed - Provider: Jonathan Viramontes RN) metoprolol succinate XL (Toprol-XL) tablet 100 mg 100 mg, Oral, DAILY, First dose on Wed11/16/19 at 0900, Until Discontinued, DO NOT CRUSH OR OPEN Please hold for BP <100, HR <55, Routine 09 (Given - Provider: Sera Koroma RN) 0836 (Given - Provider: Jesse Adkins, TORREY) multivitamin with minerals (THERA-M) tablet 1 tablet 1 tablet, Oral, DAILY, First dose on Wed11/15/19 at 1715, Until Discontinued, Routine 175 (Given - Provider: Vandana Zuniga, TORREY) 0916 (Given - Provider: Sera Koroma RN) 0837 (Given - Provider: Jesse Adkins, TORREY) pantoprazole EC (Protonix) tablet 20 mg 20 mg, Oral, DAILY, First dose on Wed11/15/19 at 1715, Until Discontinued, DO NOT CRUSH OR OPEN 1755 (Given - Provider: Vandana Zuniga, RN) 09 (Given - Provider: Sera Koroma RN) 0837 (Given - Provider: Jesse Adkins, TORREY) polyethylene glycol (Miralax) packet 17 g 17 g, Oral, 2 TIMES DAILY, First dose on Wed11/15/19 at 2100, Until Discontinued, Routine 2004 (Given - Provider: Flory Barraza RN) 915 (Given - Provider: Sera Koroma RN)2099 (Not Given - Provider: Jonathan Viramontes RN - Reason: Patient/family refused) 0836 (Given - Provider: Jesse Adkins, TORREY) senna-docusate (Pericolace) 8.6-50 mg per tablet 2 tablet 2 tablet, Oral, 2 TIMES DAILY, First dose on Wed11/15/19 at 2100, Until Discontinued, Routine 2005 (Given - Provider: Flory Barraza RN) 917 (Given - Provider: Sera Koroma RN)2032 (Given - Provider: Jonathan Viramontes, TORREY) 0837 (Given - Provider: Jesse Adkins, TORREY) simvastatin (Zocor) tablet 10 mg 10 mg, Oral, NIGHTLY, First dose on Wed11/15/19 at 2100, Until Discontinued 2009 (Given - Provider: Flory Barraza RN) 2032 (Given - Provider: Jonathan Viramontes, TORREY) sodium chloride 0.9 % (flush) flush 5 mL 5 mL, Intravenous, 2 TIMES DAILY, First dose on Wed11/15/19 at 2100, Until Discontinued, Recovery (Recovery-Hospital Unit), Routine 2099 (Not Given - Provider: Flory Barraza RN - Reason: See comment - Comment: infusing) 0915 (Given - Provider: Sera Koroma, TORREY)203 (Given - Provider: Jonathan Viramontes, TORREY) 0900 (Given - Provider: Jesse Adkins RN) tranexamic [...] dose on Wed11/15/19 at 2100, Until Discontinued, DO NOT CRUSH OR OPEN Please hold for BP <105, HR <60, Routine 2009 (Not Given - Provider: Flory Barraza RN - Reason: Order parameters not met) 2100 (Not Given - Provider: Jonathan Viramontes RN - Reason: Order parameters not met - Comment: HR <60) Continuous Medication Order 11/15/2019 11/16/2019 11/17/2019 lactated ringers infusion (CANCELED) 1,000 mL, at 100 mL/hr, Intravenous, CONTINUOUS, Starting on Wed11/15/19 at 1145, Until Wed11/15/19 at 1609, Day of Surgery (Day of Procedure) 1207 (New Bag - Provider: Chary [place], TORREY)1421 (New Bag - Provider: Maegan Romano) sodium [...] Until Wed11/17/19 at 1559, Muscle spasms, Routine 203 (Given - Provider: Jonathan Viramontes RN) bisacodyl [...] Routine 1223 (Given - Provider: Chary [place], TORREY)1235 (Given - Provider: Chary [place] RN) HYDROmorphone [...] Pain, Routine 0925 (Given - Provider: Sera Koroma RN)1528 (Given - Provider: Ana Rojas RN) ketorolac (TORADOL) injection (CANCELED) ONCE PRN, Starting [...] baclofen, Routine 1002 (Given - Provider: Sera Koroma RN) 0836 (Given - Provider: Jesse Adkins RN) midazolam (PF) (VERSED) injection 1 mg (CANCELED) 1 mg, Intravenous, EVERY 5 MIN PRN, Starting on Wed11/15/19 at 1123, Until Wed11/15/19 at 1248, Sleep, or prior to injection of local anesthetic, Hold for delirium/agitation. (Maximum dose 5 mg)., Day of Surgery (Day of Procedure), Routine 1223 (Given - Provider: Chary [place]ows RN)1228 (Given - Provider: Chary [place] RN) ondansetron (ZOFRAN) injection 4 mg(Linked Group 3) [...] Flory Barraza RN)1002 (Given - Provider: Sera Koroma, TORREY)1502 (Given - Provider: Ana Rojas, TORREY)2234 (Given - Provider: Jonathan Viramontes RN) 0837 [...] Transdermal, EVERY 24 HOURS, First dose on Zakia 11/16/19 at 1000, Until Discontinued, Apply patch(es) for [...] Routine documented in this encounter Care Teams Lunchroom Food Service Supervisor Relationship Specialty Start Date End Date Radha Mckeon MD [address] [place] [address] PCP - General 09/23/10 documented as of this encounter
--- OUTSIDE RECORDS SUMMARY | 2024-07-24 17:27 | XMS_ITS | Encounter Summary ---
[place] [address] Care Team Providers Care Nutrient Management Specialist Name Role Phone Radha Mckeon MD Primary Care Provider [phone] Reason for Visit * Reason Onset Date Comments Knee Pain 10/30/2019 Encounter Details Date Type Department Care Team (Late st Contact Info) Description 10/30/2019 Telephone [place] [phone] Layne Soares RMA Knee Pain Social History Tobacco Use Types Packs/Day [...] Telephone Encounter - Layne Soares RMA - 10/30/2019 4:47 PM EST Malik called to let Dr Jauregui know that he has Force set up. He wants to let the Dr know what his knee pain is getting worse and feels that he will be needing acane soon. Malik stated that because his Pain is worse he stated that he told his boss that we can not longer work with the pain any more until he has had his surgery. He will be faxing paperwork. I gave him Harriet Best's phone number. As he is looking for help in arranging his care. documented in this encounter Plan of Treatment Upcoming Encounters Date Type Department Care Team (Late st Contact Info) Description 08/18/2024 11:00 AM EDT Hospital Encounter Non-Invasive [place] [address] Arrived 02/22/2025 1:30 PM EDT Appointment Hematology and Oncology at [place] [phone] 02/22/2025 2:30 PM EDT Office Visit Hematology and Oncology at [place] [address] Ellis Childers MD [facility] [address] [place]EMAT[place]Y [place] [address] Felicita Landa APRN [facility] [address] HEMATOLOGY [place] [address] documented as of this encounter Visit Diagnoses Not on filedocumented in this encounter Care Teams Nutrient Management Specialist Relationship Specialty Start Date End Date Radha Mckeon MD [address] [place] [address] PCP - General 09/23/10 documented as of this encounter
--- OUTSIDE RECORDS SUMMARY | 2024-07-24 17:27 | XMS_ITS | Encounter Summary ---
Author Organization [facility] [place] [address] Care Team Providers Care Ticker Maintainer Name Role Phone Radha Mckeon MD Primary Care Provider [phone] Reason for Visit * Reason Onset Date Comments Disability Paperwork 12/04/2019 Encounter Details Date Type Department Care Team (Late st Contact Info) Description 12/04/2019 [place] [address] Sukhjinder Jauregui MD [facility] [place] [address] Disability Paperwork Social History Tobacco Use Types Packs/Day Years [...] encounter Miscellaneous Notes * Telephone Encounter - Abril Soto - 12/13/2019 3:51 PM EST To provider for review/signature: signed Faxed/Mailed/Pick-up Date: faxed * Telephone Encounter - Magy Taveras - 12/13/2019 11:20 AM EST Completed by: Magy To provider for review/signature: out for signature * Telephone Encounter - Abril Soto - 12/04/2019 12:22 PM EST Date Received: 12/04/2019 Insurance/Disability Company Name: [employer] documented in this encounter Plan of Treatment Upcoming Encounters Date Type Department Care Team (Late st Contact Info) Description 08/18/2024 11:00 AM EDT Hospital Encounter Non-[place] [address] Arrived 02/22/2025 1:30 PM EDT Appointment Hematology and Oncology at [address] 02/22/2025 2:30 PM EDT Office Visit Hematology and Oncology at [place] [address] Ellis Childers MD [facility] [address] [place] [address] Felicita Landa APRN [facility] [address] [place] [address] documented as of this encounter Visit Diagnoses Not on filedocumented in this encounter Care Teams Ticker Maintainer Relationship Specialty Start Date End Date Radha Mckeon MD [address] [place] [address] PCP - General 09/23/10 documented as of this encounter
--- OUTSIDE RECORDS SUMMARY | 2024-07-24 17:27 | XMS_ITS | Encounter Summary ---
Author Organization [facility] [place] [address] Care Team Providers Care Materials Research Engineer Name Role Phone Radha Mckoen MD Primary Care Provider [phone] Encounter Details Date Type Department Care Team (Late st Contact Info) Description 07/14/2019 Notes Only Cardiology at [address] [phone] Garrett Benson MD [facility] [place] [address] Social History Tobacco Use Types Packs/Day Years [...] as of this encounter Progress Notes * Garrett Benson MD - 07/14/2019 2:19 PM EDT ILR interrogation reviewed for Mr. Machado. No arrhythmias. No symptoms. Battery OK. documented in this encounter Plan of Treatment Upcoming Encounters Date Type Department Care Team (Late st Contact Info) Description 08/18/2024 11:00 AM EDT Hospital Encounter [place] [address] Arrived 02/22/2025 1:30 PM EDT Appointment Hematology and Oncology at [address] 02/22/2025 2:30 PM EDT Office Visit Hematology and Oncology at [address] Ellis Childers MD [facility] [address] [place] [address] Felicita Landa APRN [facility] [address] [place] [address] documented as of this encounter Visit Diagnoses Not on filedocumented in this encounter Care Teams Materials Research Engineer Relationship Specialty Start Date End Date Radha Mckeon MD [address] [place] [address] PCP - General 09/23/10 documented as of this encounter
--- OUTSIDE RECORDS SUMMARY | 2024-07-24 17:27 | XMS_ITS | Encounter Summary ---
[place] [address] Care Team Providers Care Access Services Librarian Name Role Phone Radha Mckeon MD Primary Care Provider [phone] Encounter Details Date Type Department Care Team (Latest Contact Info) Description 11/09/2019 12:20 PM EST [place] [phone] Debility; Pain of right lower extremity; Failure of total knee replacement, initial encounter Social History Tobacco Use Types Packs/Day [...] AM EDT Hospital Encounter [place] [phone] Arrived 02/22/2025 1:30 PM EDT Appointment Hematology [place] [address] 02/22/2025 2:30 PM EDT Office Visit Hematology [place] [address] Ellis Childers MD [facility] [address] HEMATOLOGY [place] [address] Felicita Landa APRN [facility] HEMATOLOGY [place] [address] Pending Results Name Type Priority Associated Diagnoses Date /Time Type and Screen Future Surgery, [facility] SAME DAY PROGRAM ONLY) Lab Routine Pain of right lower extremity 11/09/2019 2:09 PM EST documented as of this encounter Procedures Procedure Name Priority Date/Time Associated Diagnosis Comments ANTIBODY SCREEN MANUAL Routine 0 8:53 PM EST DIRECT ANTIGLOBULIN TEST Routine 11/09/2019 4:35 PM EST ABORH RECHECK STATUS Routine 11/09/2019 2:09 PM EST HC VENIPUNCTURE Routine 11/09/2019 2:09 PM EST Debility Pain of right lower extremity Failure of total knee replacement, initial encounter ANTIBODY SCREEN MANUAL Routine 0 2:09 PM EST ABORH TYPE MANUAL Routine 11/09/2019 2:0 9 PM EST HEMOGRAM Routine 11/09/2019 2:09 PM EST Debility Pain of right lower extremity Failure of total knee replacement, initial encounter DIFFERENTIAL, AUTOMATED Routine 11/09/19 20 2:09 PM EST Debility Pain of right lower extremity Failure of total knee replacement, initial encounter ANTIBODY IDENTIFICATION Routine 11/09/19 20 2:09 PM EST HC PARTIAL THROMBOPLASTIN TIME Routine 11/09/2019 2:09 PM EST Debility Pain of right lower extremity Failure of total knee replacement, initial encounter HC ESR-SEDIMENTATION RATE, BLOOD Routine 11/09/2019 2:09 PM EST Debility Pain of right lower extremity Failure of total knee replacement, initial encounter HC PROTHROMBIN TIME Routine 11/09/2019 2 :09 PM EST Debility Pain of right lower extremity Failure of total knee replacement, initial encounter HC CBC,PLT & AUTO DIFF Routine 0 2:09 PM EST Debility Pain of right lower extremity Failure of total knee replacement, initial encounter BASIC METABOLIC PANEL Routine 11/09/2019 2:09 PM EST Debility Pain of right lower extremity Failure of total knee replacement, initial encounter documented in this encounter Results * Antibody screen manual (11/09/2019 8:53 PM EST) AB Screen Interp Negative [facility] Blood specimen (specimen) Venous Draw / Unknown 11/09/2019 8:53 PM EST 11/09/2019 8:53 PM EST Narrative Resulting Agency Comment Spec In Lab Sukhjinder Jauregui MD [facility] B[facility] ORDKiara GARZA Performing Organization Address [facility] Co de Phone Number [facility] [place] [address] * Direct antiglobulin test (11/09/2019 4:35 PM EST) LUTHER Poly Positive [facility] LUTHER IgG Positive [facility] LUTHER C3d Positive [facility] Blood specimen (specimen) Venous Draw / Unknown 11/09/2019 4:35 PM EST 11/09/2019 4:35 PM EST Narrative Resulting Agency Comment Spec In Lab Sukhjinder Jauregui MD BLOOD BANK LAB ORDKiara GARZA Performing Organization Address City/[facility]/ZIP Co de Phone Number [facility] [place] [address] * Antibody identification (11/09/2019 2:09 PM EST) Ab Identified Panagglutinin MA RY [facility] Blood specimen (specimen) Venous Draw / Unknown 11/09/2019 2:09 PM EST 11/09/2019 2:14 PM EST Narrative Resulting Agency Comment Spec In Lab Sukhjinder Jauregui MD BLOOD BANK LAB ORDKiara MIRZAMARGARITA [facility] [place] [address] * ABORH Recheck Status (11/09/2019 2:09 PM EST) Pathologist [facility] ABORH Type Recheck Completed [facility] Blood specimen (specimen) Venous Draw / Unknown 11/09/2019 2:09 PM EST 11/09/2019 2:14 PM EST Narrative Resulting Agency Comment Spec In Lab Sukhjinder Jauregui MD BLOOD BANK LAB ORDKiara GARZA [facility] [place] [address] * Antibody screen manual (11/09/2019 2:09 PM EST) AB Screen Interp Positive [facility] Blood specimen (specimen) Venous Draw / Unknown 11/09/2019 2:09 PM EST 11/09/2019 2:14 PM EST Narrative Resulting Agency Comment Spec In Lab Sukhjinder Jauregui MD BLOOD BANK LAB ORDKiara GARZA [facility] [place] [address] * ABORh Type Manual (11/09/2019 2:09 PM EST) Expires at [id number] on: 11/18/2019 [facility] ABORH Type O Pos [facility] Blood specimen (specimen) Venous Draw / Unknown 11/09/2019 2:09 PM EST 11/09/2019 2:14 PM EST Narrative Resulting Agency Comment Spec In Lab Sukhjinder Jauregui MD BLOOD BANK LAB MARLENE GARZA [facility] [place] [address] * (ABNORMAL) Differential, Automated (11/09/2019 2:09 PM EST) Neutrophil % 62.7 % [facility] Neutrophil Absolute 2.41 1.70 - 6.10 x10(3)/mc L [facility] Lymph % 19.0 % [facility] Lymphocytes Abs 0.7(L) 0.9 - 3.2 x10(3)/mc L [facility] Monocyte % 14.6 % [facility] Monocyte Abs 0.6 0.3 - 0.9 x10(3)/mc L [facility] Eos % 1.8 % [facility] Eosinophils Abs 0.1 0.0 - 0.4 x10(3)/mc L [facility] Basophil % 1.6 % [facility] Baso Absolute 0.1 0.0 - 0.1 x10(3)/mc L [facility] Immature Gran % 0.30 % [facility] Comment: Immature granulocytes(IG's)percentage and absolute count will include metamyelocytes, myelocytes, and promyelocytes. Blood smears from CBCs yielding IG's will be scanned manually for concordance. If this scan disagrees with the automated IG or if promyelocytes are noted, a manual differential will be performed. Immature Gran Absolute 0.01 0.00 - 0.04 x10(3)/mc L [facility] Blood specimen (specimen) 11/09/2019 2:09 PM EST 11/09/2019 2:14 PM EST Narrative Resulting Agency Comment Spec In Lab Sukhjinder Jauregui MD HEMATOLOGY ORDERABL ES Performing Organization Address City/[facility]/ZIP Co de Phone Number [facility] [place] [address] * (ABNORMAL) Hemogram (11/09/2019 2:09 PM EST) White Blood Cell 3.8(L) 4.0 - 9.5 x10(3)/mc L [facility] Red Blood Cell 4.08(L) 4.58 - 5.54 x10(6)/mc L [facility] Hemoglobin 12.8(L) 13.7 - 16.5 gm/dL [facility] Hematocrit 38.2(L) 40.5 - 48.5 % [facility] Mean Cell Volume 93.6(H) 82.9 - 93.1 fL [facility] Mean Cell Hemoglobin 31.4 27.5 - 32.1 pg [facility] Mean Cell Hemoglobin Concentration 33.5 32.0 - 35.7 gm/dL [facility] Platelet 105(L) 145 - 357 x10(3)/mc L [facility] RDW Standard Deviation 40.1 36.0 - 45.0 [facility] RDW coefficient of variation 11.7 11.4 - 13.8 % [facility] Mean Platelet Volume 10.7 7.6 - 12.9 [facility] NRBC% auto 0.0 % [facility] NRBC Absolute 0.000 0.000 - 0.000 x10(3)/mc L [facility] Blood specimen (specimen) 11/09/2019 2:09 PM EST 11/09/2019 2:14 PM EST Narrative Resulting Agency Comment Spec In Lab Sukhjinder Jauregui MD HEMATOLOGY ORDERABL ES Performing Organization Address City/[facility]/ZIP Co de Phone Number [facility] [place] [address] * Basic Metabolic Panel (non-fasting) (11/09/2019 2:09 PM EST) Glucose 95 65 - 199 mg/dL [facility] Comment:Diabetes: >=200 mg/d L plus symptoms Blood Urea Nitrogen 19 10 - 20 mg/dL [facility] Creatinine 1.03 0.80 - 1.50 mg/dL [facility] Sodium 140 135 - 145 mmol/L [facility] Potassium 4.5 3.5 - 5.0 mmol/L [facility] Comment: Please note: ??Patients with WBC >100,000 may have falsely elevated Potassium levels. ??For accurate Potassium quantification in these patients send serum separator tube (gold top) for subsequent determinations. ??Contact the Clinical Chemistry Laboratory if there are any questions. Chloride 105 98 - 107 mmol/L [facility] Carbon Dioxide 26 22 - 31 mmol/L [facility] Anion Gap 9 5 - 15 mmol/L [facility] Calcium 9.7 8.5 - 10.5 mg/dL [facility] Est Glomerular Filtration Rate 75 >=60 mL/min/1. 73 m?? [facility] Comment: The eGFR was calculated using the CKD-EPI equation. As with all creatinine based estimates of kidney function, eGFR values calculated with the CKD-EPI equation are not accurate in patients with acute kidney failure, extremes of body mass or the acutely ill. [email or web address]/[facility] CITYnkf eGFR 87 >=60 mL/min/1. 73 m?? [facility] Comment: The eGFR was calculated using the CKD-EPI equation. As with all creatinine based estimates of kidney function, eGFR values calculated with the CKD-EPI equation are not accurate in patients with acute kidney failure, extremes of body mass or the acutely ill. [email or web address] Blood specimen (specimen) 11/09/2019 2:09 PM EST 11/09/2019 2:14 PM EST Narrative Resulting Agency Comment Spec In Lab Sukhjinder Jauregui MD CHEMISTRY ORDERABLE S Performing Organization Address [facility] Co de Phone Number [facility] [place] [address] * (ABNORMAL) Prothrombin Time (11/09/2019 2:09 PM EST) Prothrombin Time 13.7(H) 9.4 - 12.5 sec [facility] International Normalization Ratio 1.2 [facility] Comment: An INR <2.0 indicates adequate procoagulant activity for hemostasis in most patients without underlying bleeding disorders, though the INR may not adequately reflect hemostatic capacity in patients with liver disease and synthetic impairment. The recommended target INR range for therapeutic anticoagulation is 2.0 ? 3.0 for most applications, though lower and higher ranges may be appropriate depending on clinical circumstances. Blood specimen (specimen) 11/09/2019 2:09 PM EST 11/09/2019 2:14 PM EST Narrative Resulting Agency Comment Spec In Lab Sukhjinder Jauregui MD HEMATOLOGY ORDERABL ES Performing Organization Address [facility] de Phone Number [facility] [place] [address] * (ABNORMAL) APTT (11/09/2019 2:09 PM EST) Partial Thromboplastin Time 38(H) 25 - 37 sec [facility] Comment: The PTT is NOT appropriate for heparin monitoring. Use the Anti-Xa level for heparin monitoring (HEP UFH) or LMWH monitoring (HEP LMW). A PTT less than 37 seconds generally indicates adequate hemostasis. Blood specimen (specimen) 11/09/2019 2:09 PM EST 11/09/2019 2:14 PM EST Narrative Resulting Agency Comment Spec In Lab Sukhjinder Jauregui MD HEMATOLOGY ORDERABL ES Performing Organization Address [facility] Co de Phone Number [facility] [place] [address] * Sedimentation rate (11/09/2019 2:09 PM EST) Sedimentation Rate Automated 34 2 - 37 mm/hr [facility] Comment: Effective October 11, 2019 new capillary photometric technology has resulted in a change in reference ranges. It is recommended that each ESR result be reviewed with its own age appropriate reference range. Blood specimen (specimen) 11/09/2019 2:09 PM EST 11/09/2019 2:14 PM EST Narrative Resulting Agency Comment Spec In Lab Sukhjinder Jauregui MD HEMATOLOGY ORDERABL ES Performing Organization Address [facility] Co de Phone Number [facility] [place] [address] * CRP, acute inflammation (11/09/2019 2:09 PM EST) C-Reactive Protein 4.4 <=4.9 mg/L [facility] Blood specimen (specimen) 11/09/2019 2:09 PM EST 11/09/2019 2:14 PM EST Narrative Resulting Agency Comment Spec In Lab Sukhjinder Jauregui MD CHEMISTRY ORDERABLE S Performing Organization Address [facility] Co de Phone Number [facility] [place] [address] documented in this encounter Visit Diagnoses Diagnosis Debility Debility, unspecified Pain of right lower extremity Failure of total knee replacement, initial encounter documented in this encounter Care Teams Access Services Librarian Relationship Specialty Start Date End Date Radha Mckeon MD [address] [place] [address] PCP - General 09/23/10 documented as of this encounter
--- OUTSIDE RECORDS SUMMARY | 2024-07-24 17:27 | XMS_ITS | Encounter Summary ---
[place] [address] Care Team Providers Care Intake Manager Name Role Phone Radha Mckeon MD Primary Care Provider [phone] Encounter Details Date Type Department Care Team (Late st Contact Info) Description 11/21/2019 Interpretation Only [address] [address] Samantha Simon [address] [place] [id number] Social History Tobacco Use Types Packs/Day Years [...] AM EDT Hospital Encounter Non[place] [address] Arrived 02/22/2025 1:30 PM EDT Appointment Hematology [place] [address] 02/22/2025 2:30 PM EDT Office Visit Hematology [place] [address] [facility] [address] [place] [address] [facility] HEMATOLOGY AND ONCOLOGY [place], [place] [phone] documented as of this encounter Procedures Procedure Name Priority Date/Time Associated Diagnosis Comments US EXTREMITY VENOUS DUPLEX RIGHT Routine 11/21/2019 12:54 PM EST documented in this encounter Results * US EXTREMITY VENOUS DUPLEX RIGHT (11/21/2019 12:54 PM EST) Anatomical Region Laterality Modality Other 11/21/2019 12:5 4 PM EST Impressions 11/21/2019 1:04 PM EST . No sonographic evidence of deep vein thrombosis. Popliteal fossa cyst Thank you for letting us participate in the care of this patient. For questions regarding this report, please contact the number below. ? Narrative 11/21/2019 1:04 PM EST EXAMINATION: US LE VENOUS DUPLEX RIGHT CLINICAL HISTORY: r/o DVT increased pain ??from hip to ankle, increased swelling TECHNIQUE: Duplex [...] measuring 4.9 x 2.8 x 1.2 cm Procedure Note Rock Mitchell DO - 11/21/2019 EXAMINATION: US LE VENOUS DUPLEX RIGHT CLINICAL HISTORY: r/o DVT increased pain from hip to ankle, increasedswelling TECHNIQUE: Duplex and color doppler ultrasound was performed of the rightlower extremity using the ultrasound transducer for venous compression. COMPARISON: CT 04/26/2019 FINDINGS: The deep veins of the RIGHT lower extremity show normalrespiratory phasicity, augmentation and compression. There is no two dimensional evidence of thrombus. Comparison images the left common femoral vein are normal. Complex fluid flexion the popliteal fossa measuring 4.9 x 2.8 x 1.2 cm IMPRESSION . No sonographic evidence of deep vein thrombosis. Popliteal fossa cyst Thank you for letting us participate in the care of this patient. Forquestions regarding this report, please contact the number below. Samantha Simon PACS IMAGES documented in this encounter Visit Diagnoses Not on filedocumented in this encounter Care Teams Intake Manager Relationship Specialty Start Date End Date Radha Mckeon MD [address] [place] [address] PCP - General 09/23/10 documented as of this encounter
--- OUTSIDE RECORDS SUMMARY | 2024-07-24 17:27 | XMS_ITS | Encounter Summary ---
[place] [address] Care Team Providers Care Grocery Sacker Name Role Phone Radha Mckeon MD Primary Care Provider [phone] Encounter Details Date Type Department Care Team (Late st Contact Info) Description 09/21/2019 Orders Only Cardiology at [address] [phone] Social History Tobacco Use Types Packs/Day Years [...] EDT Hospital Encounter Non-Invasive [place] [phone] Arrived 02/22/2025 1:30 PM EDT Appointment Hematology [place] [phone] 02/22/2025 2:30 PM EDT Office Visit Hematology [place] [address] Ellis Childers MD [facility] [address] HEMATOLOGY [place] [address] Felicita Landa APRN [facility] HEMATOLOGY [place] [address] documented as of this encounter Procedures Procedure Name Priority Date/Time Associated Diagnosis Comments CARDIAC DEVICE CHECK - REMOTE Routine 09/21/2019 6:11 PM EST documented in this encounter Results * Cardiac Device Check - Remote (09/21/2019 6:11 PM EST) Date Time Interrogation Session [employer] Implantable Pulse Generator Manager Actuarial [employer] Implantable Pulse Generator Model [id number] [employer] Implantable Pulse Generator Serial Number [id number] ID[employer] Type Interrogation Session Remote [employer] Implantable [...] Time End IDCO Atrial Tachy Statistic AT/AF [place] Percent 0 % IDCO Episode Statistic Recent Count 0 IDCO Episode Statistic Recent Count 0 IDCO Episode Statistic Recent Count 0 IDCO Episode Statistic Recent Count 0 IDCO Episode Statistic Recent Count 0 IDCO Episode Statistic Type Category Patient Activated IDCO Episode Statistic Recent Count 0 IDCO Episode Statistic Type Category AT/AF IDCO Episode Statistic Recent Date Time Start [id number] IDCO Episode Statistic Recent Date Time End IDCO Episode Statistic Recent Date Time Start [id number] IDCO Episode Statistic Recent Date Time End IDCO Episode Statistic Recent Date Time Start IDCO Episode Statistic Recent Date Time End [id number] IDCO Episode Statistic Recent Date Time Start [id number] IDCO Episode Statistic Recent Date Time End [id number] IDCO Episode Statistic Recent Date Time Start [id number] IDCO Episode Statistic Recent Date Time End [id number] IDCO Episode Statistic Recent Date Time Start [id number] IDCO Episode Statistic Recent Date Time End [id number] IDCO Episode Statistic Total Count 0 IDCO Episode Statistic Total Count 3 IDCO Episode Statistic Total Count 0 IDCO Episode Statistic Total Count 0 IDCO Episode Statistic Total Count 14 IDCO Episode Statistic Type Category Patient Activated IDCO Episode Statistic Total Count 0 IDCO Episode Statistic Type Category AT/AF IDCO Episode Statistic Total Date Time Start [id number] IDCO Episode Statistic Total Date Time End [id number] IDCO Episode Statistic Total Date Time Start [id number] IDCO Episode Statistic Total Date Time End [id number] IDCO Episode Statistic Total Date Time Start [id number] IDCO Episode Statistic Total Date Time End [id number] IDCO Episode Statistic Total Date Time Start [id number] IDCO Episode Statistic Total Date Time End [id number] IDCO Episode Statistic Total Date Time Start [id number] IDCO Episode Statistic Total Date Time End [id number] IDCO Episode Statistic Total Date Time Start [id number] IDCO Episode Statistic Total Date Time End [id number] ID[employer] Anatomical Region Laterality Modality Other 09/21/2019 6:11 PM EST Physician Cardiology IMPLANTABLE CARD IAC DEVICE documented in this encounter Visit Diagnoses Not on filedocumented in this encounter Care Teams Grocery Sacker Relationship Specialty Start Date End Date Radha Mckeon MD [address] [place] [address] PCP - General 09/23/10 documented as of this encounter
--- OUTSIDE RECORDS SUMMARY | 2024-07-24 17:27 | XMS_ITS | Encounter Summary ---
Author Organization [facility] [address] Care Team Providers Care Lens Grinder And Polisher Name Role Phone Radha Mckeon MD Primary Care Provider [phone] Reason for Visit * Reason Onset Date Comments Other 07/25/2019 revision jesse garrison Encounter Details Date Type Department Care Team (Late st Contact Info) Description 07/25/2019 [place] [phone] Margarette De La Garza RN Other (revision planning) Social History Tobacco Use Types Packs/Day Years [...] Miscellaneous Notes * Telephone Encounter - Margarette De La Garza RN - 07/25/2019 4:59 PM EDT Best time to reach him 10am til 1pm * Telephone Encounter - Margarette De La Garza RN - 07/25/2019 4:39 PM EDT Patient feels it is time to considering revision surgery rt knee in December time frame 2019. Wanted to update [address] about possible plans. documented in this encounter Plan of Treatment Upcoming Encounters Date Type Department Care Team (Late st Contact Info) Description 08/18/2024 11:00 AM EDT Hospital Encounter [place] [address] Arrived 02/22/2025 1:30 PM EDT Appointment Hematology and Oncology at [place] [address] 02/22/2025 2:30 PM EDT Office Visit Hematology and Oncology at [place] [address] Ellis Childers MD [facility] [address] HEMATOLOGY [place] [address] Felicita Landa APRN [facility] [address] HEMATOLOGY [place] [address] documented as of this encounter Visit Diagnoses Not on filedocumented in this encounter Care Teams Lens Grinder And Polisher Relationship Specialty Start Date End Date Radha Mckeon MD [address] [place] [address] PCP - General 09/23/10 documented as of this encounter
--- OUTSIDE RECORDS SUMMARY | 2024-07-24 17:28 | XMS_ITS | Encounter Summary ---
[place] [address] Care Team Providers Care Water Valve Repairer Name Role Phone Radha Mckeon MD Primary Care Provider [phone] Encounter Details Date Type Department Care Team (Late st Contact Info) Description 01/12/2019 Telephone [place] [phone] Magy Joseph Social History Tobacco Use Types Packs/Day Years [...] encounter Miscellaneous Notes * Telephone Encounter - Magy Joseph - 01/12/2019 1:45 PM EDT Left message informing patient of date and time of MRI. Also let him know he will need a H&P prior to the MRI as well as a chest XR. documented in this encounter Plan of Treatment Upcoming Encounters Date Type Department Care Team (Late st Contact Info) Description 08/18/2024 11:00 AM EDT Hospital Encounter Non-Invasive [place] [address] Arrived 02/22/2025 1:30 PM EDT Appointment Hematology and Oncology at [place] [phone] 02/22/2025 2:30 PM EDT Office Visit Hematology [place] [address] Ellis Childers MD [facility] [address] [place] [address] Felicita Landa APRN [facility] [address] [place] [address] documented as of this encounter Visit Diagnoses Not on filedocumented in this encounter Care Teams Water Valve Repairer Relationship Specialty Start Date End Date Radha Mckeon MD [address] [place] [address] PCP - General 09/23/10 documented as of this encounter
--- OUTSIDE RECORDS SUMMARY | 2024-07-24 17:28 | XMS_ITS | Encounter Summary ---
Author Organization [facility] [place] [address] Care Team Providers Care Registered Representative Name Role Phone Radha Mckeon MD Primary Care Provider [phone] Reason for Visit * Reason Comments Atrial Fibrillation Follow-up Ekg Encounter Details Date Type Department Care Team (Late st Contact Info) Description 01/04/2019 1:30 PM EST Office Visit Cardiology at [address] [address] Diogo Robb PA [facility] [place] [address] Lightheadedness; Paroxysmal atrial fibrillation Social History Tobacco Use [...] Sign Reading Time Taken Comments Blood Pressure 149/73 01/04/2019 1:29 PM EST Pulse 55 01/04/2019 1:29 PM EST Temperature - - Respiratory Rate - - Oxygen Saturation 100% 01/04/2019 1:29 PM EST Inhaled Oxygen Concentration - - Weight 77.7 kg (171 lb 3.2 oz) 01/04/2019 1:29 P M EST Height 182.9 cm (6') 01/04/2019 1:29 PM EST Body Mass Index 23.22 01/04/2019 1:29 PM EST documented in this encounter Progress Notes * Diogo Robb PA - 01/04/2019 1:30 PM EST Subjective: Patient ID: Malik Machado is a 68 y.o. male. HPI 68yo man with complex hx including SVT, afib s/p ablation, continuing lightheadedness and intermittent sensation of tachycardia without clear correlation with arrythmia. He is currently also under ongoing evaluation by pain management and neurology. As routine ambulatory monitoring, including Zio has not been in place during severe symptomatic events, he underwent implantation of a Medtronic ILR in April 2018. Though he has continued to have episodes of sensation of lightheadedness and palpitations, the ILR has not demonstrated any correlating arrythmia so far. He was most recently evaluated at [facility] ED for lightheadedness on 12/22/2018 and was without significant findings for arrythmia or cardiac issues. A diagnosis of vertigo was entertained. 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 Patient Active Problem List Diagnosis ??? A-fib Overview Note: --Recurrent AF --S/P cardioversions x 3 (09/2005, 01/2006, 07/2007). --AF that has resolved spontaneously (12/2006, etc). 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 --Flecainide stopped after 4 doses due to CA/QRS prolongation, 12/2007. --Started on dofetilide 500mcg BID [...] of periodic palpitations 2015. -- Admitted to [facility] 08/27/16, with A. fib at a rate of 112 bpm on metoprolol 100 mg daily/verapamil 180 mg daily; DCCV; metoprolol increased to 150 mg daily; started Eliquis. --Echo 11/2016: EF 58%. --Repeat afib ablation 11/23/2016: Veins still isolated; posterior wall isolation performed, stage IV. ??? Hypertension Overview Note: ??? Lightheadedness ??? Adverse drug effects Overview Note: --Amitriptyline (palpitations), Lipitor (liver enzyme abnormalities), flecainide (CA/QRS prolongation noted 12/2007). ??? History of surgery [...] oxycodone. --Lumbar radiculopathy. Review of Systems Constitutional: Positive for fatigue. Negative for diaphoresis and fever. Respiratory: Negative for chest tightness and shortness of breath. Cardiovascular: Positive for palpitations. Negative for chest pain and leg swelling. Gastrointestinal: Negative for diarrhea, nausea and vomiting. Neurological: Positive for dizziness and light-headedness. Negative for syncope. Social History Tobacco Use ??? Smoking status: Former Smoker Packs/day: 2.00 Years: 16.00 Pack years: 32.00 Types: Cigarettes Last attempt to quit: 08/13/1983 Years since quittin.4 ??? Smokeless tobacco: Never Used Substance Use Topics ??? Alcohol use: No ??? Drug use: No Current Outpatient Medications Medication Sig Dispense Refill ??? acyclovir (ZOVIRAX) 200 mg Capsule 1 [...] omeprazole (PRILOSEC) 20 mg Capsule, Delayed Release(E.C.) 20 mg 2 times daily. ??? BOTOX 200 unit Recon Soln Inject 200 Units as directed Q 3 Months. ??? meTOPROLOL succinate (TOPROL-XL) 100 mg Tablet Sustained Release 24 hr Take 1.5 tablets by mouth daily. 135 tablet PRN ??? verapamil (CALAN-SR) 120 mg Tablet Sustained Release Take 1 tablet by mouth daily. 90 tablet 3 ??? levothyroxine (SYNTHROID) 100 mcg Tablet Take 100 mcg by mouth daily. ??? apixaban (ELIQUIS) 5 mg Tablet Take 5 mg by mouth 2 times daily. ??? valACYclovir (VALTREX) 500 mg Tablet Take 500 mg by mouth daily. ??? oxyCODONE (ROXICODONE) 15 mg Tablet Take 7.5 mg by mouth as needed for Pain. ??? MULTIVITAMIN W-MINERALS/LUTEIN (CENTRUM SILVER ORAL) Take 1 tablet by mouth. ??? [place]-3 Fatty Acids-Vitamin E (FISH OIL) 1,000 mg Cap Take 2,000 mg by mouth daily. ??? acetaminophen (TYLENOL) 500 mg tablet Take 1,000 mg by mouth as needed. Indications: Headache Disorder, Pain ??? baclofen (LIORESAL) 10 mg tablet Take 10 mg by mouth nightly as needed. ??? simvastatin (ZOCOR) 10 mg tablet Take 10 mg by mouth nightly. Objective: Physical Exam Constitutional: He is oriented to person, place, and time. No distress. Cardiovascular: Normal rate and regular rhythm. Pulmonary/Chest: Effort normal and breath sounds normal. Musculoskeletal: Normal range of motion. He exhibits no edema. Neurological: He is alert and oriented to person, place, and time. Skin: Skin is warm and dry. He is not diaphoretic. Nursing note and vitals reviewed. ILR: 04/04/2018 [employer]ist Model No. Serial No. Generator [address] LNQ11 [id number] ?? Mode Lower rate Upper rate Pause Detection 30 bpm @ 4 beats 167 bpm @ 16 beats 3 seconds BV: good 14 symptom logged events(since 04/04/2018) - review of available EGMs shows sinus rhythm with normal rates(70s); 3 events auto-logged as pauses though these were all on date of implant and did not represent actual events(likely loss of signal episodes). Echocardiogram: 11/24/2016 1. Limited follow up study [...] are within normal limits. Assessment and Plan: 68yo man with complex arrythmia hx including afib and SVT(on monitoring but unable to elicit @ EPS), s/p afib ablation and redo afib ablation in November 2016 now with intermittent episodes of profound lightheadedness not clearly associated with either tachycardia or bradycardia. He is maintained onverapamil 120mg and metoprolol 150mg daily. He was last seen by Dr. Gan on 12/02/2017 and later underwent an ILR implant in April 2018. Though he has continued to report intermittent symptoms, there is no correlation with arrythmia so far. He denies recent syncope. Today, we discussed how the ILR and activator work and reviewed device data(no arrythmia). Kike Martinez, pacemaker tech discussed troubleshooting remote ILR follow up with him as he has had some difficulty regaining connectivity. Plan: ILR remote follow up in six months. EP clinic follow up in one year with 12 lead EKG and ILR interrogation. Provider: ANDREE Shelley Provider#: [id number] Consult attending physician: Cynthia Byrd MD documented in this encounter Plan of Treatment Upcoming Encounters Date Type Department Care Team (Late st Contact Info) Description 08/18/2024 11:00 AM EDT Hospital Encounter Non-[place]vasive [place] [address] Arrived 02/22/2025 1:30 PM EDT Appointment Hematology and Oncology at [address] 02/22/2025 2:30 PM EDT Office Visit Hematology and Oncology at [place] [address] Ellis Childers MD [facility] DR HEMATOLOGY [place] [address] Felicita Landa APRN [facility] DR HEMATOLOGY [place] [address] documented as of this encounter Visit Diagnoses Diagnosis Lightheadedness Dizziness and giddiness Paroxysmal atrial fibrillation Atrial fibrillation documented in this encounter Care Teams Registered Representative Relationship Specialty Start Date End Date Radha Mckeon MD [address] [place] [address] PCP - General 09/23/10 documented as of this encounter
--- OUTSIDE RECORDS SUMMARY | 2024-07-24 17:28 | XMS_ITS | Encounter Summary ---
[place] [address] Care Team Providers Care Senior Wind Turbine Technician Name Role Phone Radha Mckeon MD Primary Care Provider [phone] Encounter Details Date Type Department Care Team (Late st Contact Info) Description 07/06/2019 Orders Only Cardiology at [address] [phone] Social History Tobacco Use Types Packs/Day Years [...] AM EDT Hospital Encounter Non[place] [address] Arrived 02/22/2025 1:30 PM EDT Appointment Hematology [place] [address] 02/22/2025 2:30 PM EDT Office Visit Hematology [place] [address] Ellis Childers MD [facility] [address] [place] [address] Felicita Landa APRN [facility] [place] [address] documented as of this encounter Procedures Procedure Name Priority Date/Time Associated Diagnosis Comments CARDIAC DEVICE CHECK - REMOTE Routine 07/06/2019 5:20 PM EDT documented in this encounter Results * Cardiac Device Check - Remote (07/06/2019 5:20 PM EDT) Date Time Interrogation Session IDCO Implantable Pulse Generator Stock Checkerer Medtronic IDCO Implantable Pulse Generator Model LNQ11 IDCO Implantable Pulse Generator Serial Number [id number] IDCO Type Interrogation Session Remote IDCO Implantable [...] Time End IDCO Atrial Tachy Statistic AT/AF [place] Percent 0 % IDCO Episode Statistic Recent [...] IDCO Episode Statistic Recent Date Time Start [id number] IDCO Episode Statistic Recent Date Time End [id number] IDCO Episode Statistic Recent Date Time Start [id number] IDCO Episode Statistic Recent Date Time End [id number] IDCO Episode Statistic Recent Date Time Start [id number] IDCO Episode Statistic Recent Date Time End [id number] IDCO Episode Statistic Recent Date Time Start [id number] IDCO Episode Statistic Recent Date Time End [id number] IDCO Episode Statistic Total Count 0 IDCO Episode Statistic Total Count 3 IDCO Episode Statistic Total Count 0 IDCO Episode Statistic Total Count 0 IDCO Episode Statistic Total Count 14 IDCO Episode Statistic Type Category Patient Activated IDCO Episode Statistic Total Count 0 IDCO Episode Statistic Type Category AT/AF IDCO Episode Statistic Total Date Time Start [id number] IDCO Episode Statistic Total Date Time End [id number] IDCO Episode Statistic Total Date Time Start [id number] IDCO Episode Statistic Total Date Time End [id number] IDCO Episode Statistic Total Date Time Start [id number] IDCO Episode Statistic Total Date Time End [id number] IDCO Episode Statistic Total Date Time Start [id number] IDCO Episode Statistic Total Date Time End [id number] IDCO Episode Statistic Total Date Time Start [id number] IDCO Episode Statistic Total Date Time End [id number] IDCO Episode Statistic Total Date Time Start [id number] IDCO Episode Statistic Total Date Time End [id number] IDCO Anatomical Region Laterality Modality Other 07/06/2019 5:20 PM EDT Physician Cardiology IMPLANTABLE CARD IAC DEVICE documented in this encounter Visit Diagnoses Not on filedocumented in this encounter Care Teams Senior Wind Turbine Technician Relationship Specialty Start Date End Date Radha Mckeon MD [address] [place] [address] PCP - General 09/23/10 documented as of this encounter
--- OUTSIDE RECORDS SUMMARY | 2024-07-24 17:28 | XMS_ITS | Encounter Summary ---
[place] [address] Care Team Providers Care Office Bookkeeper Name Role Phone Radha Mckeon MD Primary Care Provider [phone] Encounter Details Date Type Department Care Team (Late st Contact Info) Description 03/22/2019 Orders Only Cardiology at [address] [phone] Social History Tobacco Use Types Packs/Day Years [...] Hospital Encounter Non-[place] [address] Arrived 02/22/2025 1:30 PM EDT Appointment Hematology [place] [phone] 02/22/2025 2:30 PM EDT Office Visit Hematology [place] [address] Ellis Childers MD [facility] [address] [place] [address] Felicita Landa APRN [facility] [place] [address] documented as of this encounter Procedures Procedure Name Priority Date/Time Associated Diagnosis Comments CARDIAC DEVICE CHECK - REMOTE Routine 03/22/2019 10:01 PM EDT documented in this encounter Results * Cardiac Device Check - Remote (03/22/2019 10:01 PM EDT) Date Time Interrogation Session IDCO Implantable Pulse Generator Powder Room Attendant Medtronic IDCO Implantable Pulse Generator Model LNQ11 IDCO Implantable Pulse Generator Serial Number [id number] IDCO Type Interrogation Session Remote IDCO Implantable [...] Time End IDCO Atrial Tachy Statistic AT/AF [place] Percent 0 % IDCO Episode Statistic Recent [...] IDCO Episode Statistic Recent Date Time Start [id number] IDCO Episode Statistic Recent Date Time End IDCO Episode Statistic Recent Date Time Start [id number] IDCO Episode Statistic Recent Date Time End IDCO Episode Statistic Recent Date Time Start [id number] IDCO Episode Statistic Recent Date Time End IDCO Episode Statistic Total Count 0 IDCO Episode Statistic Total Count 3 IDCO Episode Statistic Total Count 0 IDCO Episode Statistic Total Count 0 IDCO Episode Statistic Total Count 14 IDCO Episode Statistic Type Category Patient Activated IDCO Episode Statistic Total Count 0 IDCO Episode Statistic Type Category AT/AF IDCO Episode Statistic Total Date Time Start IDCO Episode Statistic Total Date Time End IDCO Episode Statistic Total Date Time Start [id number] IDCO Episode Statistic Total Date Time End IDCO Episode Statistic Total Date Time Start [id number] IDCO Episode Statistic Total Date Time End IDCO Episode Statistic Total Date Time Start [id number] IDCO Episode Statistic Total Date Time End IDCO Episode Statistic Total Date Time Start [id number] IDCO Episode Statistic Total Date Time End IDCO Episode Statistic Total Date Time Start [id number] IDCO Episode Statistic Total Date Time End IDCO Anatomical Region Laterality Modality Other 03/22/2019 10:0 1 PM EDT Physician Cardiology IMPLANTABLE CARD IAC DEVICE documented in this encounter Visit Diagnoses Not on filedocumented in this encounter Care Teams Office Bookkeeper Relationship Specialty Start Date End Date Radha Mckeon MD [address] [place] [address] PCP - General 09/23/10 documented as of this encounter
--- OUTSIDE RECORDS SUMMARY | 2024-07-24 17:28 | XMS_ITS | Encounter Summary ---
Author Organization [place] [address] Care Team Providers Care Composition Worker Name Role Phone Radha Mckeon MD Primary Care Provider [phone] Encounter Details Date Type Department Care Team (Late st Contact Info) Description 01/17/2019 Telephone [place] [phone] PA [facility] [place] [address] Social History Tobacco Use Types Packs/Day Years [...] Miscellaneous Notes * Telephone Encounter - Magy Taveras - 01/17/2019 1:54 PM EDT Patient scheduled. * Telephone Encounter - [address] PA - 01/17/2019 12:50 PM EDT Called patient, discussed aspiration . 443 cells, no growth at 14 days. Not infected. Continues with knee pain. Consider repeat bone scan and XR. F/U with spine, and in ortho clinic. documented in this encounter Plan of Treatment Upcoming Encounters Date Type Department Care Team (Late st Contact Info) Description 08/18/2024 11:00 AM EDT Hospital Encounter Non-Invasive [place] [address] Arrived 02/22/2025 1:30 PM EDT Appointment Hematology [place] [address] 02/22/2025 2:30 PM EDT Office Visit Hematology and Oncology at [place] [phone] Ellis Childers MD [facility] DR [place] [address] Felicita Landa APRN [facility] [place] [address] documented as of this encounter Visit Diagnoses Not on filedocumented in this encounter Care Teams Composition Worker Relationship Specialty Start Date End Date Radha Mckeon MD [address] [place] [address] PCP - General 09/23/10 documented as of this encounter
--- OUTSIDE RECORDS SUMMARY | 2024-07-24 17:28 | XMS_ITS | Encounter Summary ---
[place] [address] Care Team Providers Care Real Estate Transaction Coordinator Name Role Phone Radha Mckeon MD Primary Care Provider [phone] Encounter Details Date Type Department Care Team (Late st Contact Info) Description 01/16/2019 Orders Only Cardiology at [address] [phone] Social History Tobacco Use Types Packs/Day Years [...] AM EDT Hospital Encounter Non-[place] [address] Arrived 02/22/2025 1:30 PM EDT Appointment H[place]ology [place] [phone] 02/22/2025 2:30 PM EDT Office Visit [place]ology [place] [address] Ellis Childers MD [facility] DR [place] [address] Felicita Landa APRN [facility] [place] [address] documented as of this encounter Procedures Procedure Name Priority Date/Time Associated Diagnosis Comments CARDIAC DEVICE CHECK - REMOTE Routine 01/16/2019 5:08 PM EDT documented in this encounter Results * Cardiac Device Check - Remote (01/16/2019 5:08 PM EDT) Date Time Interrogation Session [id number] IDCO Implantable Pulse Generator Home Health Nurse Medtronic IDCO Implantable Pulse Generator Model LNQ11 IDCO Implantable Pulse Generator Serial Number [id number] IDCO Type Interrogation Session Remote IDCO Implantable Pulse Generator Type Implantable Diagnostic Monitor IDCO Implantable Pulse Generator Implant Date IDCO Zone Setting Detection Interval 2,000 ms IDCO Zone Setting Detection Interval 3,000 ms IDCO Zone Setting Type Category AT/AF IDCO Zone Setting Type Category VF IDCO Zone Setting Type Category VT IDCO Zone Setting Detection Interval 360 ms IDCO Battery Status OK IDCO Episode Identifier 17 IDCO Episode Type Category Patient Activated IDCO Episode Date Time [id number] IDCO Atrial Tachy Statistic Date Time Start [id number] IDCO Atrial Tachy Statistic Date Time End [id number] IDCO Atrial Tachy Statistic AT/AF [place] Percent 0 % IDCO Episode Statistic Recent Count 0 IDCO Episode Statistic Recent Count 0 IDCO Episode Statistic Recent Count 0 IDCO Episode Statistic Recent Count 0 IDCO Episode Statistic Recent Count 1 IDCO Episode Statistic Type Category Patient Activated IDCO Episode Statistic Recent Count 0 IDCO Episode Statistic Type Category AT/AF IDCO Episode Statistic Recent Date Time Start [id number] IDCO Episode Statistic Recent Date Time End [id number] IDCO Episode Statistic Recent Date Time Start [id number] IDCO Episode Statistic Recent Date Time End [id number] IDCO Episode Statistic Recent Date Time Start [id number] IDCO Episode Statistic Recent Date Time End [id number] IDCO Episode Statistic Recent Date Time Start [id number] IDCO Episode Statistic Recent Date Time End [id number] IDCO Episode Statistic Recent Date Time Start [id number] IDCO Episode Statistic Recent Date Time End [id number] IDCO Episode Statistic Recent Date Time Start 78051002397587 IDCO Episode Statistic Recent Date Time End [id number] IDCO Episode Statistic Total Count 0 IDCO Episode Statistic Total Count 3 IDCO Episode Statistic Total Count 0 IDCO Episode Statistic Total Count 0 IDCO Episode Statistic Total Count 14 IDCO Episode Statistic Type Category Patient Activated IDCO Episode Statistic Total Count 0 IDCO Episode Statistic Type Category AT/AF IDCO Episode Statistic Total Date Time Start [id number] IDCO Episode Statistic Total Date Time End [id number] IDCO Episode Statistic Total Date Time Start 88029713123339 IDCO Episode Statistic Total Date Time End [id number] IDCO Episode Statistic Total Date Time Start [id number] IDCO Episode Statistic Total Date Time End [id number] IDCO Episode Statistic Total Date Time Start 04528503048274 IDCO Episode Statistic Total Date Time End [id number] IDCO Episode Statistic Total Date Time Start 97477687110160 IDCO Episode Statistic Total Date Time End [id number] IDCO Episode Statistic Total Date Time Start 94052798135838 IDCO Episode Statistic Total Date Time End [id number] IDCO Anatomical Region Laterality Modality Other 01/16/2019 5:08 PM EDT Physician Cardiology IMPLANTABLE CARD IAC DEVICE documented in this encounter Visit Diagnoses Not on filedocumented in this encounter Care Teams Real Estate Transaction Coordinator Relationship Specialty Start Date End Date Radha Mckeon MD [address] [place] [address] PCP - General 09/23/10 documented as of this encounter
--- OUTSIDE RECORDS SUMMARY | 2024-07-24 17:28 | XMS_ITS | Encounter Summary ---
Author Organization [facility] [place] [address] Care Team Providers Care Global Chief Experience Officer Name Role Phone Radha Mckeon MD Primary Care Provider Reason for Visit * Reason Comments Follow-up MRI of back Encounter Details Date Type Department Care Team (Late st Contact Info) Description 03/15/2019 1:40 PM EDT Office [place] [address] [place] [address] Status post right knee replacement; S/P lumbar spinal fusion; Failed back surgical syndrome Social History Tobacco Use Types Packs/Day [...] as of this encounter Progress Notes * Gerber Rodriguez PA - 03/15/2019 1:40 PM EDT Malik Machado met with me today to discuss his continued complaints of low back pain, chronic right knee pain status post a prior right knee replacement, and his chronic persistent left lower extremity pain and numbness. Reviewed his lumbar spine MRI performed recently from 2018. This does show an L5-S1 instrumented fusion quite solid in appearance. There is a small noncompressive facet synovial cyst arising from theleft L5-S1 level, causing no lateral recess or foraminal stenosis or traversing nerve root impingement. There is some mild disc bulging L3-L4 and L4-L5 with very minimal degrees of lateral recess narrowing. Central canal is widely patent throughout. I discussed with Malik that overall he does not have any indications for further spine surgery nor does his low back going evidence of lumbar radiculopathy that would contribute to his right knee pain. He does have a facet synovial cyst L5- S1 this is noncompressive in nature, and I advised him that the mild adjacent segmental degeneration at L3-L4 and L4-L5, is not likely contributing to his pain either side is not causing any significant spinal stenosis. We discussed that unfortunately persistent low back pain and radicular pain following spine surgeryespecially in his case with multiple revision operations is unfortunately quite common given the elusive nature of the exact pain generator. He tells me that the left nerve root was twisted around the screw from his prior spine surgery in the s and I advised him that that may have resulted in some nerve damage that is unfortunately going to be permanent. At this point in time I advised him that unfortunately we do not have more extensive treatment suchas injections or surgery that would be helpful to him and he tells me and successful times with pain management in the past. Encouraged him to meet with Dr. Jauregui to discuss his candidacy for further right knee intervention now that the lumbar spine involvement has been ruled out. Aside from that, informed her that hisother choices for managing his back pain mostly going to be supportive treatments such as physical therapy, intensive rehabilitation/functional pentecostal program, and somewhat selective cases, spinal cord stimulation. documented in this encounter Plan of Treatment Upcoming Encounters Date Type Department Care Team (Late st Contact Info) Description 08/18/2024 11:00 AM EDT Hospital Encounter Non-Invasive [place] [address] Arrived 02/22/2025 1:30 PM EDT Appointment Hematology [place] [address] 02/22/2025 2:30 PM EDT Office Visit Hematology [place] [address] [place] Childers MD [facility] [address] [place] [address] Felicita Landa APRN [facility] [address] [place] [address] documented as of this encounter Visit Diagnoses Diagnosis Status post right knee replacement S/P lumbar spinal fusion Arthrodesis status Failed back surgical syndrome Other unspecified back disorder documented in this encounter Care Teams Global Chief Experience Officer Relationship Specialty Start Date End Date Radha Mckeon MD [address] [place] [address] PCP - General 09/23/10 documented as of this encounter
--- OUTSIDE RECORDS SUMMARY | 2024-07-24 17:28 | XMS_ITS | Encounter Summary ---
[place] [address] Care Team Providers Care Travel Trailer Components Assembler Name Role Phone Radha Mckeon MD Primary Care Provider [phone] Reason for Visit * Diagnostic Test (Routine) - Closed Specialty Diagnoses / Procedures Referred By Becki guillory Referred To Contact Radiology Diagnoses Chronic pain of right knee Procedures NM 3 Phase Bone Scan [address] PA [facility] [place] [address] [place] [address] Referral ID Status Reason Start Date Expiration Date V isits Requested Visits Authorized [id number] Closed Specialty Service Requested 03/29/2019 03/28/2020 1 1 Encounter Details Date Type Department Care Team (Latest Contact Info) Description 04/26/2019 2:49 PM EDT - 04/26/2019 11:59 PM EDT Hospital Encounter [place] [address] Sukhjinder Jauregui MD [facility] [place] [address] Discharge Disposition: Home Social History Tobacco Use [...] (Tylenol) 500 mg tablet as needed. 01/16/2017 SUMAtriptan (IMITREX) 100 mg Tablet Take 100 [...] 10 mg by mouth nightly. metoprolol succinate (TOPROL-XL) 100 mg Tablet Sustained Release 24 hrIndications:Paroxysma l atrial fibrillation take 1 and 1/2 tablets by mouth daily 135 tablet 3 03/06/2019 02/23/2020 acyclovir (ZOVIRAX) 200 mg Capsule Take 200 mg by mouth daily. 11/17/2019 diclofenac (VOLTAREN) 1 % Gel Apply topically daily as needed. 11/17/2019 omeprazole (PRILOSEC) 20 mg Capsule, Delayed Release(E.C.) Take 20 mg by mouth 2 times daily. 10/07/2017 08/03/2023 apixaban (ELIQUIS) 5 mg Tablet Take 5 mg by mouth 2 times daily. 11/09/2019 valACYclovir (VALTREX) 500 mg Tablet Take 500 mg by mouth nightly. 01/04/2016 12/02/2020 oxyCODONE (ROXICODONE) 15 mg Tablet Take 7.5 mg by mouth as needed for Pain. 11/17/2019 fish oil-omega-3 fatty acids with vitamin E 1,000 mg Capsule Take 2,000 mg by mouth daily. 05/20/2022 acetaminophen (TYLENOL) 500 mg tabletIndications:heada heriberto disorder,pain Take 1,000 mg by mouth as needed. Indications: Headache Disorder, Pain 11/17/2019 documented as of this encounter Plan of Treatment Upcoming Encounters Date Type Department Care Team (Late st Contact Info) Description 08/18/2024 11:00 AM EDT Hospital Encounter [place] [address] Arrived 02/22/2025 1:30 PM EDT Appointment Hematology [place] [address] 02/22/2025 2:30 PM EDT Office Visit Hematology [place] [address] [place] Childers MD [facility] DR [place] [address] Felicita Landa APRN [facility] HEMATOLOGY [place] [address] documented as of this encounter Procedures Procedure Name Priority Date/Time Associated Diagnosis Comments NM BONE SCAN 3 PHASE Routine 04/26/2019 3:26 PM EDT Chronic pain of right knee documented in this encounter Results * NM 3 Phase Bone Scan (04/26/2019 3:26 PM EDT) Anatomical Region Laterality Modality Nuclear Medicine Impressions 04/26/2019 6:44 PM EDT 1. ??No evidence of infected right total knee arthroplasty. 2. ??Diffusely increased activity involving the patella component of the right total knee arthroplasty, which, when correlated with the CT findings of osteolysis, raising the question of loosening. 3. ??Nonspecific small focus of radiotracer uptake along the tibial tray medially and anteriorly, without corresponding CT abnormality. Thank you for letting us participate in the care of this patient. For questions regarding this report, please contact the number below. ? Electronically signed by: Sulema Arnold [facility] ([phone]), at 04/26/2019 6:44 PM Narrative 04/26/2019 6:44 PM EDT EXAMINATION: NM 3 PHASE BONE SCAN CLINICAL HISTORY: right knee pain s/p right TKA Per EMR, right total knee arthroplasty date 01/14/2010. TECHNIQUE: Immediately following the intravenous administration of 26.2 mCi of Tc-99m MDP, sequential images of perfusion to the knees were obtained at 2 second intervals for 60 seconds in the anterior and posterior projections. Five minutes later, blood pool images were obtained of the knees in the anterior, posterior, and lateral projections. Three hours later, a bone scan of the knees was performed with planar images obtained in the anterior, posterior, and lateral projections. COMPARISON: CT right knee 04/26/2019 AP and lateral radiographs of the right knee 2018 FINDINGS: The blood flow and blood pool studies are normal. The delayed planar images demonstrate diffuse increased activity involving the patella. There is also a small focus of radiotracer uptake along the tibial tray medially, best seen on the posterior image, and anteriorly on the lateral view. The left knee is unremarkable. Procedure Note Sulema Arnold MD - 04/26/2019 EXAMINATION: NM 3 PHASE BONE SCAN CLINICAL HISTORY: right knee pain s/p right TKA Per EMR, right total knee arthroplasty date 01/14/2010. TECHNIQUE: Immediately following the intravenous administration of 26.2 mCi of Tc-99mMDP, sequential images of perfusion to the knees were obtained at 2 secondintervals for 60 seconds in the anterior and posterior projections. Five minutes later, blood pool images were obtained of the knees in the anterior, posterior, and lateral projections. Three hours later, a bone scan of the knees was performed with planarimages obtained in the anterior, posterior, and lateral projections. COMPARISON: CT right knee 04/26/2019 AP and lateral radiographs of the right knee 2019 FINDINGS: The blood flow and blood pool studies are normal. The delayed planar images demonstrate diffuse increased activity involvingthe patella. There is also a small focus of radiotracer uptake along thetibial tray medially, best seen on the posterior image, and anteriorly on the lateralview. The left knee is unremarkable. IMPRESSION 1. No evidence of infected right total knee arthroplasty. 2. Diffusely increased activity involving the patella component of theright total knee arthroplasty, which, when correlated with the CT findings of osteolysis, raising the question of loosening. 3. Nonspecific small focus of radiotracer uptake along the tibial traymedially and anteriorly, without corresponding CT abnormality. Thank you for letting us participate in the care of this patient. Forquestions regarding this report, please contact the number below. Electronically signed by: Sulema Arnold [facility]([phone]), at 04/26/2019 6:44 PM Sukhjinder Jauregui MD IM NM ORDERABLES documented in this encounter Visit Diagnoses Not on filedocumented in this encounter Care Teams Travel Trailer Components Assembler Relationship Specialty Start Date End Date Radha Mckeon MD [address] [place] [address] PCP - General 09/23/10 documented as of this encounter
--- OUTSIDE RECORDS SUMMARY | 2024-07-24 17:28 | XMS_ITS | Encounter Summary ---
Author Organization [facility] [place] [address] Care Team Providers Care Decorator Inspector Name Role Phone Radha Mckeon MD Primary Care Provider [phone] Encounter Details Date Type Department Care Team (Latest Contact Info) Description 01/31/2019 12:31 PM EDT - 01/31/2019 1:38 PM EDT Hospital Encounter XRay at [address] [place] [address] Rey Clayton MD [facility] [place] [address] Chronic pain of right knee; S/P lumbar spinal fusion; Chronic bilateral low back pain, with sciatica presence unspecified; Encounter for imaging to screen for metal prior to magnetic resonance imaging (MRI) Discharge Disposition: Home Social History Tobacco Use [...] tablet Take 10 mg by mouth nightly. acyclovir (ZOVIRAX) 200 mg Capsule Take 200 mg by mouth daily. 11/17/2019 diclofenac (VOLTAREN) 1 % Gel Apply topically daily as needed. 11/17/2019 omeprazole (PRILOSEC) 20 mg Capsule, Delayed Release(E.C.) Take 20 mg by mouth 2 times daily. 10/07/2017 08/03/2023 meTOPROLOL succinate (TOPROL-XL) 100 mg Tablet Sustained Release 24 hrIndications:Paroxysma l atrial fibrillation Take 1.5 tablets by mouth daily. 135 tablet 12/17/2017 03/05/2019 apixaban (ELIQUIS) 5 mg Tablet Take 5 [...] AM EDT Hospital Encounter Non-Invasive [place] [address] Arrived 02/22/2025 1:30 PM EDT Appointment Hematology [place] [address] 02/22/2025 2:30 PM EDT Office Visit Hematology [place] [address] [place] Childers MD [facility] [place] [address] Felicita Landa APRN [facility] [place] [address] documented as of this encounter Procedures Procedure Name Priority Date/Time Associated Diagnosis Comments XR CHEST PA AND LATERAL Routine 01/31/2019 12:45 PM EDT Chronic pain of right knee S/P lumbar spinal fusion Chronic bilateral low back pain, with sciatica presence unspecified Encounter for imaging to screen for metal prior to magnetic resonance imaging (MRI) documented in this encounter Results * XR Chest PA & Lateral (Generic) (01/31/2019 12:45 PM EDT) Anatomical Region Laterality Modality Chest N/A Digital Radiogra phy Impressions 01/31/2019 3:14 PM EDT Left chest wall loop recorder with no additional metallic densities identified. I have personally reviewed the image(s) and the residents interpretation and agree with the findings, Anita Bedolla at 01/31/2019 3:14 PM Thank you for letting us participate in the care of this patient. For questions regarding this report, please contact the number below. ? Narrative 01/31/2019 3:14 PM EDT EXAMINATION: XR CHEST PA AND LATERAL (GENERIC) CLINICAL HISTORY: Assess for metal prior to lumbar MRI TECHNIQUE: PA and lateral views of the chest COMPARISON: 12/15/2012. FINDINGS: There is a loop recorder along the left anterior chest wall. No additional metallic densities seen. The lungs are clear. No pneumothorax or pleural effusion. The cardiomediastinal silhouette is within normal limits. No acute osseous abnormality. Procedure Note Anita Muller MD - 01/31/2019 EXAMINATION: XR CHEST PA AND LATERAL (GENERIC) CLINICAL HISTORY: Assess for metal prior to lumbar MRI TECHNIQUE: PA and lateral views of the chest COMPARISON: 12/15/2012. FINDINGS: There is a loop recorder along the left anterior chest wall. Noadditional metallic densities seen. The lungs are clear. No pneumothorax or pleural effusion. Thecardiomediastinal silhouette is within normal limits. No acute osseous abnormality. IMPRESSION Left chest wall loop recorder with no additional metallic densitiesidentified. I have personally reviewed the image(s) and the residents interpretationand agree with the findings, Anita Bedolla at 01/31/2019 3:14 PM Thank you for letting us participate in the care of this patient. Forquestions regarding this report, please contact the number below. Rey Clayton MD IMG DX ORDERABLES documented in this encounter Visit Diagnoses Diagnosis Chronic pain of right knee S/P lumbar spinal fusion Arthrodesis status Chronic bilateral low back pain, with sciatica presence unspecified Encounter for imaging to screen for metal prior to magnetic resonance imaging (MRI) Special screening for other specified conditions documented in this encounter Care Teams Decorator Inspector Relationship Specialty Start Date End Date Radha Mckeon MD [address] [place] [address] PCP - General 09/23/10 documented as of this encounter
--- OUTSIDE RECORDS SUMMARY | 2024-07-24 17:28 | XMS_ITS | Encounter Summary ---
Author Organization [facility] [address] Care Team Providers Care Interventional Physician Name Role Phone Radha Mckeon MD Primary Care Provider [phone] Reason for Visit * Diagnostic Test (Routine) - Closed Specialty Diagnoses / Procedures Referred By Becki guillory Referred To Contact Radiology Diagnoses Chronic pain of right knee S/P lumbar spinal fusion Chronic bilateral low back pain, with sciatica presence unspecified Procedures MRI Lumbar Spine wo Contrast (Generic) Gerber Rodriguez PA [facility] [place] [address] [place] [address] Referral ID Status Reason Start Date Expiration Date V isits Requested Visits Authorized [id number] Closed Specialty Service Requested 01/02/2019 01/02/2020 1 1 Encounter Details Date Type Department Care Team (Latest Contact Info) Description 01/31/2019 2:34 PM EDT - 01/31/2019 11:59 PM EDT Hospital [place] [address] Rey Clayton MD [facility] [place] [address] Discharge Disposition: Home Social History Tobacco Use [...] Sign Reading Time Taken Comments Blood Pressure 136/82 01/31/2019 4:30 PM EDT Pulse - - Temperature 36.7 ??C (98 ??F) 01/31/2019 4:15 PM EDT Respiratory Rate 12 01/31/2019 4:30 PM EDT Oxygen Saturation 97% 01/31/2019 4:30 PM EDT Inhaled Oxygen Concentration - - Weight - - Height - - Body Mass Index - - documented in this encounter Discharge Instructions * Discharge Instructions* Marla Polk RN - 01/31/2019 4:35 PM EDT IV SEDATION 1. You have received medication before and/or during your procedure, which affects judgment and reaction time. 2. Do not drive, operate machinery, drink alchololic beverages, or make important decisions for 24 [...] foul drainage occours, please contact your M.D. Revised 11/15/14 documented in this encounter Medications at Time [...] AM EDT Hospital Encounter Non-[place] [address] Arrived 02/22/2025 1:30 PM EDT Appointment Hematology [place] [address] 02/22/2025 2:30 PM EDT Office Visit [place]ematology [place] [address] [place] Childers MD [facility] [address] [place] [address] Felicita Landa APRN [facility] [address] [place] [address] documented as of this encounter Procedures Procedure Name Priority Date/Time Associated Diagnosis Comments MRI LUMBAR SPINE WITHOUT CONTRAST Routine 01/31/2019 4:48 PM EDT Chronic pain of right knee S/P lumbar spinal fusion Chronic bilateral low back pain, with sciatica presence unspecified documented in this encounter Visit Diagnoses Not on filedocumented in this encounter Care Teams Interventional Physician Relationship Specialty Start Date End Date Radha Mckeon MD [address] [place] [address] PCP - General 09/23/10 documented as of this encounter
--- OUTSIDE RECORDS SUMMARY | 2024-07-24 17:28 | XMS_ITS | Encounter Summary ---
Author Organization [facility] [place] [address] Care Team Providers Care Registered Dental Hygienist Name Role Phone Radha Mckeon MD Primary Care Provider [phone] Reason for Visit * Reason Comments Follow-up Right knee TKA DOS: 01/14/10 Discuss aspiration Encounter Details Date Type Department Care Team (Late st Contact Info) Description 02/02/2019 1:00 PM EDT Office [place] [address] PA [facility] [place] [address] Status post right knee replacement Social History [...] Sign Reading Time Taken Comments Blood Pressure 159/83 02/02/2019 1:17 PM EDT Pulse 54 02/02/2019 1:17 PM EDT Temperature - - Respiratory Rate - - Oxygen Saturation - - Inhaled Oxygen Concentration - - Weight 76.2 kg (168 lb) 02/02/2019 1:17 PM EDT Height 182.9 cm (6') 02/02/2019 1:17 PM EDT Body Mass Index 22.78 02/02/2019 1:17 PM EDT documented in this encounter Progress Notes * [address], ANDREE - 02/02/2019 1:00 PM EDT Arthroplasty/Orthopaedic History: 1. Right TKA. Dr. Mi. 01/14/2010 HPI: Malik Machado is a very pleasant 68 y.o. year-old male and is now 9 years post right total knee replacement The patient has been doing poorly, continuing with pain, down the outside of the thigh, into the right knee. He presents today to discuss his most recent procedure: Right knee aspiration. ROS: Denies: fever, chills, night sweats, nausea, or vomiting BP 159/83 (BP Location (NBP): Right arm, Patient Position: Sitting, BP Cuff Sizes: Adult (25-34 cm)) Pulse 54 Ht 182.9 cm (6') Wt 76.2 kg (168 lb) BMI 22.78 kg/m?? Physical Exam: Well-appearing male in no acute distress. Alert and Oriented x 3 and answers all questions appropriately. The incision is well healed, with no signs of infection. None today X-RAYS: Knee aspiration reviewed. Questionnaire Responses: [facility] Surgical Postop Visit 02/02/2019 PROMIS-10 General Health Good PROMIS-10 Quality of Life Good PROMIS-10 Physical Health Good PROMIS-10 Mental Health Very Good PROMIS-10 Social Activity Very Good PROMIS-10 Everyday Activities Moderately PROMIS-10 Pain 7 PROMIS-10 Fatigue Moderate PROMIS-10 Social Roles Good PROMIS-10 Anxious or Depressed Sometimes PROMIS PHYSICAL HEALTH SCORE 37.4 PROMIS MENTAL HEALTH SCORE 48.3 KOOS JR Scores 44.91 Problems with surgical incision/wound after surgery No Problems with incision - Prescribed antibiotics - Caregiver after your surgical incision problem - Gone to ER since knee surgery - Admitted to hospital since recent ortho surgery No Additional surgery on same body part No TKA Grade 7 Pain in other KNEE Moderate Back pain at this moment Fairly severe Satisfaction with Treatment Somewhat satisfied Choose Same Treatment Again Probably yes [facility] Response 02/02/2019 KOOS JR Scores 44.91 Spine [facility] Response 02/02/2019 KOOS JR Scores 44.91 ASSESSMENT/PLAN: Mr. Machado is a 68 y.o. year old male status post right total knee replacement. Postoperative course complicated by continued right knee pain, s/p negative bone scan and negative aspiration. Continue weightbearing as tolerated and working on range of motion. We will see him back in 5 years for repeat examination. X-rays will be needed at that time. Patient may return to normal activities as his pain and function allow. We reviewed his aspiration results. There is no growth for aerobic, anaerobic, fungus cultures over2 weeks. His cell count was 443 which is quite low and reassuring. We discussed that he continues to have knee pain after a noncemented knee. He has a negative bone scan. He has negative aspiration results. We discussed that we do not see any source of knee pain other than soft tissue. We discussedthat he could be having referred pain into his knee, which I will recommend that he follow-up with the spine team after his most recent MRI. We reviewed this briefly, specifically the report. We discussed discussing potential options and potential referred pain in his right knee after his most recent scan. He is thankful for today's visit. If the spine team thinks his back pain is not referring into his knee, consider repeat bone scan, and CT scan if negative to evaluate tibial component for internal rotation. We discussed the appropriate precautions surrounding dental [...] All questions were answered. Signed: ANDREE DURAN 02/02/2019 documented in this encounter Plan of Treatment Upcoming Encounters Date Type Department Care Team (Late st Contact Info) Description 08/18/2024 11:00 AM EDT Hospital Encounter Non-[place] [address] Arrived 02/22/2025 1:30 PM EDT Appointment [place] [address] 02/22/2025 2:30 PM EDT Office Visit [place] [address] [place] Childers MD [facility] DR [place] [address] Felicita Landa APRN [facility] DR HEMATOLOGY [place] [address] documented as of this encounter Visit Diagnoses Diagnosis Status post right knee replacement documented in this encounter Care Teams Registered Dental Hygienist Relationship Specialty Start Date End Date Radha Mckeon MD [address] [place] [address] PCP - General 09/23/10 documented as of this encounter
--- OUTSIDE RECORDS SUMMARY | 2024-07-24 17:28 | XMS_ITS | Encounter Summary ---
Author Organization [facility] [place] [address] Care Team Providers Care Machine Wedger Name Role Phone Rahda Mckeon MD Primary Care Provider [phone] Encounter Details Date Type Department Care Team (Late st Contact Info) Description 04/28/2019 Telephone [place] [phone] PA [facility] [place] [address] Social History Tobacco Use Types Packs/Day Years [...] Telephone Encounter - L[address] PA - 04/28/2019 1:28 PM EDT I did call the patient, per his request. In short, this is a patient s/p Uncemented TKA in the pastby Dr. Mi. He has had pain in his knee, and his back s/p fusion of his lumbar spine, and TKA. He has been worked with in inflammatory markers, and Dr. Mi in the past, and those were found to be within normal limits. He has continued with pain, and evaluated by me in the clinic. Repeat inflammatory markers were obtained, CRP of 0.8 and the ESR of 38. Orders were placed for an aspirate, and was negative, with no growth, and with reassuring cell counts: 448 WBCs and 19% polys . Repeat bone scan and CT scan were obtained, which is the purpose of the call to review. 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 There is also increased uptake about the patella on the bone scan. At this point, signs are pointing to possibly some of the pain could be coming from this. I recommend follow up with Dr. Jauregui to discuss his knee, and qian ion. documented in this encounter Plan of Treatment Upcoming Encounters Date Type Department Care Team (Late st Contact Info) Description 08/18/2024 11:00 AM EDT Hospital Encounter Non-Invasive [place] [phone] Arrived 02/22/2025 1:30 PM EDT Appointment Hematology and Oncology at [place] [phone] 02/22/2025 2:30 PM EDT Office Visit Hematology [place] [address] Ellis Childers MD [facility] [place] [address] Felicita Landa APRN [facility] HEMATOLOGY AND ONCOLOGY [place], [place] [id number] documented as of this encounter Visit Diagnoses Not on filedocumented in this encounter Care Teams Machine Wedger Relationship Specialty Start Date End Date Radha Mckeon MD [address] [place] [address] PCP - General 09/23/10 documented as of this encounter
--- OUTSIDE RECORDS SUMMARY | 2024-07-24 17:28 | XMS_ITS | Encounter Summary ---
[place] [address] Care Team Providers Care Flower Buncher Or Picker Name Role Phone Radha Mckeon MD Primary Care Provider [phone] Encounter Details Date Type Department Care Team (Late st Contact Info) Description 04/28/2019 Orders Only Cardiology at [address] [phone] Social History Tobacco Use Types Packs/Day Years [...] AM EDT Hospital Encounter Non[place] [phone] Arrived 02/22/2025 1:30 PM EDT Appointment Hematology [place] [phone] 02/22/2025 2:30 PM EDT Office Visit Hematology [place] [address] Ellis Childers MD [facility] [address] [place] [address] Felicita Landa APRN [facility] [place] [address] documented as of this encounter Procedures Procedure Name Priority Date/Time Associated Diagnosis Comments CARDIAC DEVICE CHECK - REMOTE Routine 04/28/2019 4:39 PM EDT documented in this encounter Results * Cardiac Device Check - Remote (04/28/2019 4:39 PM EDT) Date Time Interrogation Session [employer] Implantable Pulse Generator Box Finisher Medtronic IDCO Implantable Pulse Generator Model [id number] IDCO Implantable Pulse Generator Serial Number [id number] IDCO Type Interrogation Session Remote IDCO Implantable [...] Time End IDCO Atrial Tachy Statistic AT/AF Fonda Percent 0 % IDCO Episode Statistic Recent [...] IDCO Episode Statistic Recent Date Time End [id number] IDCO Episode Statistic Recent Date Time Start IDCO Episode Statistic Recent Date Time End IDCO Episode Statistic Recent Date Time Start IDCO Episode Statistic Recent Date Time End [id number] IDCO Episode Statistic Recent Date Time Start IDCO Episode Statistic Recent Date Time End [id number] IDCO Episode Statistic Total Count 0 IDCO Episode Statistic Total Count 3 IDCO Episode Statistic Total Count 0 IDCO Episode Statistic Total Count 0 IDCO Episode Statistic Total Count 14 IDCO Episode Statistic Type Category Patient Activated IDCO Episode Statistic Total Count 0 IDCO Episode Statistic Type Category AT/AF IDCO Episode Statistic Total Date Time Start [id number] IDCO Episode Statistic Total Date Time End [id number] IDCO Episode Statistic Total Date Time Start [id number] IDCO Episode Statistic Total Date Time End [id number] IDCO Episode Statistic Total Date Time Start [id number] IDCO Episode Statistic Total Date Time End [id number] IDCO Episode Statistic Total Date Time Start [id number] IDCO Episode Statistic Total Date Time End [id number] IDCO Episode Statistic Total Date Time Start [id number] IDCO Episode Statistic Total Date Time End [id number] IDCO Episode Statistic Total Date Time Start [id number] IDCO Episode Statistic Total Date Time End [id number] IDCO Anatomical Region Laterality Modality Other 04/28/2019 4:39 PM EDT Physician Cardiology IMPLANTABLE CARD IAC DEVICE documented in this encounter Visit Diagnoses Not on filedocumented in this encounter Care Teams Flower Buncher Or Picker Relationship Specialty Start Date End Date Radha Mckeon MD [address] [place] [address] PCP - General 09/23/10 documented as of this encounter
--- OUTSIDE RECORDS SUMMARY | 2024-07-24 17:28 | XMS_ITS | Encounter Summary ---
[place] [address] Care Team Providers Care County Bailiff Name Role Phone Radha Mckeon MD Primary Care Provider [phone] Encounter Details Date Type Department Care Team (Late st Contact Info) Description 01/15/2019 Orders Only Cardiology at [address] [phone] Social History Tobacco Use Types Packs/Day Years [...] AM EDT Hospital Encounter Non-[place] [phone] Arrived 02/22/2025 1:30 PM EDT Appointment H[place]ology [place] [phone] 02/22/2025 2:30 PM EDT Office Visit [place]ology [place] [address] Ellis Childers MD [facility] DR HEMATOLOGY [place] [address] Felicita Landa APRN [facility] [place] [address] documented as of this encounter Procedures Procedure Name Priority Date/Time Associated Diagnosis Comments CARDIAC DEVICE CHECK - REMOTE Routine 01/15/2019 1:07 AM EDT documented in this encounter Results * Cardiac Device Check - Remote (01/15/2019 1:07 AM EDT) Date Time Interrogation Session [id number] IDCO Implantable Pulse Generator Iron Worker Apprentice Medtronic IDCO Implantable Pulse Generator Model [id number] IDCO Implantable Pulse Generator Serial Number [id number] IDCO Type Interrogation Session Remote IDCO Implantable Pulse Generator Type Implantable Diagnostic Monitor IDCO Implantable Pulse Generator Implant Date [id number] IDCO Anatomical Region Laterality Modality Other 01/15/2019 1:07 AM EDT Physician Cardiology IMPLANTABLE CARD IAC DEVICE documented in this encounter Visit Diagnoses Not on filedocumented in this encounter Care Teams County Bailiff Relationship Specialty Start Date End Date Radha Mckeon MD [address] [place] [address] PCP - General 09/23/10 documented as of this encounter
--- OUTSIDE RECORDS SUMMARY | 2024-07-24 17:28 | XMS_ITS | Encounter Summary ---
Author Organization [facility] [place] [address] Care Team Providers Care Release Of Information Specialist Name Role Phone Radha Mckeon MD Primary Care Provider Reason for Referral * Diagnostic Test (Routine) - Closed Specialty Diagnoses / Procedures Referred By Contac t Referred To Contact Radiology Diagnoses Chronic pain of right knee S/P lumbar spinal fusion Chronic bilateral low back pain, with sciatica presence unspecified Procedures MRI Lumbar Spine wo Contrast (Generic) Gerber Rodriguez PA [facility] [place] [address] [place] [address] Referral ID Status Reason Start Date Expiration Date V isits Requested Visits Authorized [id number] Closed Specialty Service Requested 01/02/2019 01/02/2020 1 1 Reason for Visit * Reason Comments Back Pain * Consultation (Routine) - Closed Specialty Diagnoses / Procedures Referred By Contac t Referred To Contact Orthopaedics Diagnoses Lumbar radiculopathy/ ?imaging [address] PA [facility] [place] [address] [facility] [place] [address] [place] [address] Referral ID Status Reason Start Date Expiration Date V isits Requested Visits Authorized [id number] Closed Consult, Test & Treat 12/13/2018 12/13/2019 1 1 Encounter Details Date Type Department Care Team (Late st Contact Info) Description 01/02/2019 2:40 PM EST Office [place] [address] Gerber Rodriguez PA [facility] [place] [address] Chronic pain of right knee; S/P lumbar spinal fusion; Chronic bilateral low back pain, with sciatica presence unspecified; Encounter for imaging to screen for metal prior to magnetic resonance imaging (MRI) Social History Tobacco Use Types Packs/Day Years [...] Progress Notes * Gerber Rodriguez PA - 01/02/2019 2:40 PM EST Malik Machado is a 68-year-old gentleman seen today for chief complaint of right knee pain and lowback pain for several years. Malik is known to our practice for having been under the care of Dr. Royal and Dr. Mi in the past, going as far back as the 1999. Malik has prior history of 3 lumbar spine operations performed in [place] with initial lumbar decompression, then instrumented fusion, then subsequent hardware removal. This was done from an anterior and posterior approach. Aside from that he has also had 2 right knee surgeries and initial meniscus repair surgery on the right kneein the 1960s, and so subsequent right total knee replacement [place] [address] Mi. Malik has remained with rather persistent debilitating back pain and knee pain with perhaps the right knee pain being more bothersome at present. Aside from that he tells me that he has this numbness and tingling that goes into the bottom of his feet especially on the left. Of note, he had joint aspiration today and will be having evaluation for infectious and inflammatory disease subsequently by our General orthopedics team. He was sent to me today to evaluate for any lumbar cause of his issues. 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 He finds that he is the best when he is walking around and staying active and his pain gets worse with prolonged inactivity. In the past he has usedgabapentin for pain but has not found this especially helpful so he discontinued it. He cannot takeNSAIDs due to use of a blood thinner Eliquis. Uses oxycodone 15 mg but tells me this is very occasional. He has a muscle relaxant baclofen. He gets Botox injections for migraines otherwise takes sumatriptan. Objective: On exam today this is a pleasant thin 68-year-old gentleman. His gait is antalgic. Upon inspection,he has a well-healed midline lumbar incision, and the left anterior abdominal incision. On his right knee he has a midline incision, and a more medial right knee incision as well. All of these are benign in appearance. His lumbar range of motion is quite limited, no more than 20 degrees of forward flexion and extension is no more than 10 degrees. His straight leg raises are negative. His hip range of motion is normal and painless on both sides. His motor exam shows full strength of the lower extremity muscle groups. Sensory exam is intact light touch throughout. His reflexes are symmetric +2 at both ankles, not tested on the right knee, +2 at the left knee. We reviewed his prior MRI and plain x-rays from 2005 and this does show straightening of the usual lumbar lordosis, and a solid L5-S1 fusion. Superior to this, there is some disc degeneration of the L4-L5 segment with mild bulging but no significant central canal or foraminal stenosis at any level of the lumbar spine. Assessment/plan: Malik Machado is a 68-year-old gentleman seen today with persistent low back pain with some right knee/right lower extremity pain. There is question at present about this being a consequence of a lumbar spine issue in his case, we do have concerns about adjacent segmental stenosis above his prior L5-S1 fusion. To assess for this more definitively, I will have him undergo a noncontrast lumbar spine MRI and following that we can certainly discuss the anatomical findings and discussed the pros and cons of interventional pain management with injections, and potential spine surgical options, as medically appropriate. He tells me that he needs to be sedated for his MRI. In the past he has trialed oral sedation with benzodiazepines but unfortunately this was still not sufficient for him and he was even left inside the MRI machine for quite some time and he has developed rather significant claustrophobia. To manage this issue, I will have him undergo IV sedation and he will get a history and physical from his primary care physician Dr. Mckeon and prior to undergoing his lumbar spine MRI. documented in this encounter Plan of Treatment Upcoming Encounters Date Type Department Care Team (Late st Contact Info) Description 08/18/2024 11:00 AM EDT Hospital Encounter Non[place] [address] Arrived 02/22/2025 1:30 PM EDT Appointment Hematology and Oncology at [place] [address] 02/22/2025 2:30 PM EDT Office Visit Hematology [place] [address] Ellis Childers MD [facility] DR [place] [address] Felicita Landa APRN [facility] [address] [place] [address] documented as of this encounter Results * MRI Lumbar Spine wo Contrast (Generic) (01/31/2019 4:48 PM EDT) Anatomical Region Laterality Modality L-spine Magnetic Resonan ce Impressions 01/31/2019 5:13 PM EDT Right-sided subarticular recess narrowing at L3-L4 and L4-L5 because of disc bulge and facet arthropathy as described above. Comment: The following findings are so common in people without low back pain that while we report their presence, they must be interpreted with caution and in context of the clinical situation (Reference- Robk et al, Spine 2001). Findings: (Prevalence in patients without low back pain), disc degeneration (decreased T2 signal, height loss, bulge) (91%), disc T2-signal loss (83%), disc height loss (56%), disc bulge (64%), disc protrusion (32%), annular fissure (38%). Thank you for letting us participate in the care of this patient. For questions regarding this report, please contact the number below. ? Electronically signed by: Librado Li [facility] ([phone]), at 01/31/2019 5:13 PM Narrative 01/31/2019 5:13 PM EDT EXAMINATION: MRI LUMBAR SPINE WO CONTRAST (GENERIC) CLINICAL HISTORY: Back pain and right knee pain, prior L5-S1 fusion, please assess for spinal stenosis. Request IV sedation. pt. failed oral anxiolysis w/ prior MRIs. TECHNIQUE: MRI of the lumbar spine was performed without contrast, routine radiculopathy protocol. COMPARISON: Lumbar spine MRI 03/19/2006. FINDINGS: For the purposes of numbering and maintaining consistency between studies the laminectomy/fused level is labeled L5-S1. There is trace L4 and L5 anterolisthesis. Mild disc desiccation at multiple levels but the disc spaces and vertebral body heights are maintained. The normal appearing conus terminates just below the L1-L2 interspace. No aggressive marrow lesions. Visualized retroperitoneal structures are unremarkable. Bilateral renal T2 hyperintensities most likely represent simple cysts. Findings at individual levels: T12-L1: ??Normal. L1-L2: ??No significant spinal canal or neural foraminal stenosis. L2-L3: ??Disc bulge and facet arthropathy but no significant canal or neural foraminal narrowing. L3-L4: ??Disc bulge and facet arthropathy with moderate narrowing of the right subarticular recess. Mild central canal narrowing. Foraminal narrowing is mild bilaterally. L4-L5: ??Disc bulge and facet arthropathy with mild degrees of canal and neural foraminal narrowing. Moderate narrowing of the right subarticular recess. L5-S1: ??There is a left-sided synovial cyst that indents the thecal sac in the region of the traversing left S1 and S2 nerve roots. There is facet arthropathy with mild left-sided neural foraminal narrowing. The right-sided foramen is patent. Procedure Note Librado Li MD - 01/31/2019 EXAMINATION: MRI LUMBAR SPINE WO CONTRAST (GENERIC) CLINICAL HISTORY: Back pain and right knee pain, prior L5-S1 fusion,please assess for spinal stenosis. Request IV sedation. pt. failed oralanxiolysis w/ prior MRIs. TECHNIQUE: MRI of the lumbar spine was performed without contrast,routine radiculopathy protocol. COMPARISON: Lumbar spine MRI 03/19/2006. FINDINGS: For the purposes of numbering and maintaining consistencybetween studies the laminectomy/fused level is labeled L5-S1. There is trace L4and L5 anterolisthesis. Mild disc desiccation at multiple levels but the discspaces and vertebral body heights are maintained. The normal appearing conusterminates just below the L1-L2 interspace. No aggressive marrow lesions.Visualized retroperitoneal structures are unremarkable. Bilateral renal [id number] most likely represent simple cysts. Findings at individual levels: T12-L1: Normal. L1-L2: No significant spinal canal or neural foraminal stenosis. L2-L3: Disc bulge and facet arthropathy but no significant canal orneural foraminal narrowing. L3-L4: Disc bulge and facet arthropathy with moderate narrowing of theright subarticular recess. Mild central canal narrowing. Foraminal narrowing ismild bilaterally. L4-L5: Disc bulge and facet arthropathy with mild degrees of canal andneural foraminal narrowing. Moderate narrowing of the right subarticularrecess. L5-S1: There is a left-sided synovial cyst that indents the thecal sac inthe region of the traversing left S1 and S2 nerve roots. There is facetarthropathy with mild left-sided neural foraminal narrowing. The right-sided foramenis patent. IMPRESSION Right-sided subarticular recess narrowing at L3-L4 and L4-L5 because ofdisc bulge and facet arthropathy as described above. Comment: The following findings are so common in people without low backpain that while we report their presence, they must be interpreted with cautionand in context of the clinical situation (Reference- Eladiovik et al, [id number]). Findings: (Prevalence in patients without low back pain), discdegeneration (decreased T2 signal, height loss, bulge) (91%), disc T2-signal loss(83%), disc height loss (56%), disc bulge (64%), disc protrusion (32%), annularfissure (38%). Thank you for letting us participate in the care of this patient. Forquestions regarding this report, please contact the number below. Electronically signed by: Librado Li [facility]([phone]), at 01/31/2019 5:13 PM Rey Clayton MD IMG MRI ORDERABLES * XR Chest PA & Lateral (Generic) [...] the number below. ? Electronically signed by: Anita Bedolla [facility] ([phone]), at 01/31/2019 3:14 PM Narrative 01/31/2019 3:14 PM EDT EXAMINATION: XR [...] contact the number below. Electronically signed by: AFSHAN Weems [facility]([phone]), at 01/31/2019 3:14 PM Rey Clayton MD IMG DX ORDERABLES documented in this encounter Visit Diagnoses Diagnosis Chronic pain of right knee S/P lumbar spinal fusion Arthrodesis status Chronic bilateral low back pain, with sciatica presence unspecified Encounter for imaging to screen for metal prior to magnetic resonance imaging (MRI) Special screening for other specified conditions Chronic pain of right knee S/P lumbar spinal fusion Arthrodesis status Chronic bilateral low back pain, with sciatica presence unspecified Chronic pain of right knee S/P lumbar spinal fusion Arthrodesis status Chronic bilateral low back pain, with sciatica presence unspecified Encounter for imaging to screen for metal prior to magnetic resonance imaging (MRI) Special screening for other specified conditions documented in this encounter Care Teams Release Of Information Specialist Relationship Specialty Start Date End Date Radha Mckeon MD [address] [place] [address] PCP - General 09/23/10 documented as of this encounter
--- OUTSIDE RECORDS SUMMARY | 2024-07-24 17:28 | XMS_ITS | Encounter Summary ---
[place] [address] Care Team Providers Care Collections Specialist Name Role Phone Radha Mckeon MD Primary Care Provider [phone] Encounter Details Date Type Department Care Team (Late st Contact Info) Description 04/28/2019 Orders Only Cardiology at [address] [phone] Social History Tobacco Use Types Packs/Day Years [...] AM EDT Hospital Encounter Non[place] [address] Arrived 02/22/2025 1:30 PM EDT Appointment Hematology [place] [address] 02/22/2025 2:30 PM EDT Office Visit Hematology [place] [address] [facility] [address] [place] [address] [facility] [place] [address] documented as of this encounter Procedures Procedure Name Priority Date/Time Associated Diagnosis Comments CARDIAC DEVICE CHECK - REMOTE Routine 04/28/2019 4:42 PM EDT documented in this encounter Results * Cardiac Device Check - Remote (04/28/2019 4:42 PM EDT) Date Time Interrogation Session IDCO Implantable Pulse Generator Cone Examiner Medtronic IDCO Implantable Pulse Generator Model LNQ11 IDCO Implantable Pulse Generator Serial Number [id number] IDCO Type Interrogation Session Remote IDCO Implantable [...] Time End IDCO Atrial Tachy Statistic AT/AF [place] Percent 0 % IDCO Episode Statistic Recent [...] IDCO Episode Statistic Recent Date Time Start [id number] IDCO Episode Statistic Recent Date Time End [id number] IDCO Episode Statistic Recent Date Time Start IDCO Episode Statistic Recent Date Time End IDCO Episode Statistic Recent Date Time Start IDCO Episode Statistic Recent Date Time End [id number] IDCO Episode Statistic Recent Date Time Start [id number] IDCO Episode Statistic Recent Date Time End IDCO Episode Statistic Total Count 0 IDCO Episode Statistic Total Count 3 IDCO Episode Statistic Total Count 0 IDCO Episode Statistic Total Count 0 IDCO Episode Statistic Total Count 14 IDCO Episode Statistic Type Category Patient Activated IDCO Episode Statistic Total Count 0 IDCO Episode Statistic Type Category AT/AF IDCO Episode Statistic Total Date Time Start [id number] IDCO Episode Statistic Total Date Time End [id number] IDCO Episode Statistic Total Date Time Start 09232143309831 IDCO Episode Statistic Total Date Time End [id number] IDCO Episode Statistic Total Date Time Start [id number] IDCO Episode Statistic Total Date Time End [id number] IDCO Episode Statistic Total Date Time Start 28271872071921 IDCO Episode Statistic Total Date Time End [id number] IDCO Episode Statistic Total Date Time Start [id number] IDCO Episode Statistic Total Date Time End [id number] IDCO Episode Statistic Total Date Time Start [id number] IDCO Episode Statistic Total Date Time End [id number] IDCO Anatomical Region Laterality Modality Other 04/28/2019 4:42 PM EDT Physician Cardiology IMPLANTABLE CARD IAC DEVICE documented in this encounter Visit Diagnoses Not on filedocumented in this encounter Care Teams Collections Specialist Relationship Specialty Start Date End Date Radha Mckeon MD [address] [place] [address] PCP - General 09/23/10 documented as of this encounter
--- OUTSIDE RECORDS SUMMARY | 2024-07-24 17:28 | XMS_ITS | Encounter Summary ---
Author Organization [facility] [place] [address] Care Team Providers Care Reconciliation Clerk Name Role Phone Radha Mckeon MD Primary Care Provider [phone] Encounter Details Date Type Department Care Team (Late st Contact Info) Description 02/03/2019 Telephone [place] [address] [place] [address] Social History Tobacco Use Types Packs/Day Years [...] encounter Miscellaneous Notes * Telephone Encounter - Gerber Rodriguez PA - 02/03/2019 5:03 PM EDT Malik Machado returned a phone call to our office earlier today. This was regards to his lumbar spine MRI performed earlier this week. This in the context of prior L5-S1 instrumented fusion and complains of continued chronic right knee pain. I advised Malik that per my review of his lumbar spine MRI I am not really seeing any problems with his prior L5-S1 fusion. We are seeing a small left- sided synovial cyst at the L5-S1 level but even that is not causing any significant nerve compression. We do not really see any evidence of significant spinal stenosis or significant lateral recess or foraminal stenosis at any level of his lumbar spine that would account for his continued back pain and right knee pain. We did discuss briefly that unfortunately MRIs are more useful for diagnosing structural problems and surgical issues and are often more reassuring than diagnostic for those with persistent chronic pain following multiple knee and back operations as in his case. We did discuss that it may perhaps help to actually look at the images directly and he will try to do this at a later time with myself. We will plan on scheduling his appointment in follow-up on February 07 for now. This will be in the later time that is more convenient for him. documented in this encounter Plan of Treatment Upcoming Encounters Date Type Department Care Team (Late st Contact Info) Description 08/18/2024 11:00 AM EDT Hospital Encounter Non-[place] [address] Arrived 02/22/2025 1:30 PM EDT Appointment Hematology [place] [phone] 02/22/2025 2:30 PM EDT Office Visit Hematology [place] [phone] Ellis Childers MD [facility] DR HEMATOLOGY AND ONCOLOGY [place], [place] [id number] Felicita Landa APRN [facility] [place] [address] documented as of this encounter Visit Diagnoses Not on filedocumented in this encounter Care Teams Reconciliation Clerk Relationship Specialty Start Date End Date Radha Mckeon MD [address] [place] [address] PCP - General 09/23/10 documented as of this encounter
--- OUTSIDE RECORDS SUMMARY | 2024-07-24 17:28 | XMS_ITS | Encounter Summary ---
[place] [address] Care Team Providers Care Funeral Limousine Driver Name Role Phone Radha Mckeon MD Primary Care Provider [phone] Encounter Details Date Type Department Care Team (Late st Contact Info) Description 06/21/2019 Orders Only Cardiology at [address] [phone] Social History Tobacco Use Types Packs/Day Years [...] AM EDT Hospital Encounter Non-Invasive [place] [phone] Arrived 02/22/2025 1:30 PM EDT Appointment Hematology [place] [phone] 02/22/2025 2:30 PM EDT Office Visit Hematology [place] [address] Ellis Childers MD [facility] [address] HEMATOLOGY [place] [address] Felicita Landa APRN [facility] HEMATOLOGY [place] [address] documented as of this encounter Procedures Procedure Name Priority Date/Time Associated Diagnosis Comments CARDIAC DEVICE CHECK - REMOTE Routine 06/21/2019 3:11 AM EDT documented in this encounter Results * Cardiac Device Check - Remote (06/21/2019 3:11 AM EDT) Date Time Interrogation Session IDCO Implantable Pulse Generator Arc Furnace Operator Medtronic IDCO Implantable Pulse Generator Model LNQ11 IDCO Implantable Pulse Generator Serial Number [id number] IDCO Type Interrogation Session Remote IDCO Implantable [...] Time End IDCO Atrial Tachy Statistic AT/AF [place] Percent 0 % IDCO Episode Statistic Recent [...] IDCO Episode Statistic Recent Date Time Start [id number] IDCO Episode Statistic Recent Date Time End IDCO Episode Statistic Recent Date Time Start [id number] IDCO Episode Statistic Recent Date Time End IDCO Episode Statistic Recent Date Time Start [id number] IDCO Episode Statistic Recent Date Time End [id number] IDCO Episode Statistic Recent Date Time Start [id number] IDCO Episode Statistic Recent Date Time End IDCO Episode Statistic Total Count 0 IDCO Episode Statistic Total Count 3 IDCO Episode Statistic Total Count 0 IDCO Episode Statistic Total Count 0 IDCO Episode Statistic Total Count 14 IDCO Episode Statistic Type Category Patient Activated IDCO Episode Statistic Total Count 0 IDCO Episode Statistic Type Category AT/AF IDCO Episode Statistic Total Date Time Start [id number] IDCO Episode Statistic Total Date Time End [id number] IDCO Episode Statistic Total Date Time Start 37180245272930 IDCO Episode Statistic Total Date Time End [id number] IDCO Episode Statistic Total Date Time Start [id number] IDCO Episode Statistic Total Date Time End [id number] IDCO Episode Statistic Total Date Time Start [id number] IDCO Episode Statistic Total Date Time End [id number] IDCO Episode Statistic Total Date Time Start [id number] IDCO Episode Statistic Total Date Time End [id number] IDCO Episode Statistic Total Date Time Start [id number] IDCO Episode Statistic Total Date Time End [id number] IDCO Anatomical Region Laterality Modality Other 06/21/2019 3:11 AM EDT Physician Cardiology IMPLANTABLE CARD IAC DEVICE documented in this encounter Visit Diagnoses Not on filedocumented in this encounter Care Teams Funeral Limousine Driver Relationship Specialty Start Date End Date Radha Mckeon MD [address] [place] [address] PCP - General 09/23/10 documented as of this encounter
--- OUTSIDE RECORDS SUMMARY | 2024-07-24 17:28 | XMS_ITS | Encounter Summary ---
Author Organization [facility] [place] [address] Care Team Providers Care Sport Psychologist Name Role Phone Radha Mckeon MD Primary Care Provider [phone] Reason for Visit * Reason Onset Date Comments Pre Procedure Call 05/31/2019 Encounter Details Date Type Department Care Team (Late st Contact Info) Description 05/31/2019 [place] [address] Sukhjinder Jauregui MD [facility] [place] [address] Pre Procedure Call Social History Tobacco Use [...] * Telephone Encounter - Christina Gaines - 05/31/2019 8:25 AM EDT I called and left a message for patient to call [phone] directly and schedule surgery with Dr. Jauregui. documented in this encounter Plan of Treatment Upcoming Encounters Date Type Department Care Team (Late st Contact Info) Description 08/18/2024 11:00 AM EDT Hospital Encounter [place] [address] Arrived 02/22/2025 1:30 PM EDT Appointment Hematology [place] [phone] 02/22/2025 2:30 PM EDT Office Visit Hematology [place] [address] Ellis Childers MD [facility] DR [place]OLOG[place] [address] Felicita Landa APRN [facility] [address] [place] [address] documented as of this encounter Visit Diagnoses Not on filedocumented in this encounter Care Teams Sport Psychologist Relationship Specialty Start Date End Date Radha Mckeon MD [address] [place] [address] PCP - General 09/23/10 documented as of this encounter
--- OUTSIDE RECORDS SUMMARY | 2024-07-24 17:28 | XMS_ITS | Encounter Summary ---
[place] [address] Care Team Providers Care Cardiology Clinical Nurse Specialist Name Role Phone Radha Mckeon MD Primary Care Provider [phone] Encounter Details Date Type Department Care Team (Late st Contact Info) Description 07/14/2019 Orders Only Cardiology at [address] [phone] Social History Tobacco Use Types Packs/Day Years [...] AM EDT Hospital Encounter Non-Invasive [place] [phone] Arrived 02/22/2025 1:30 PM EDT Appointment Hematology [place] [phone] 02/22/2025 2:30 PM EDT Office Visit Hematology [place] [address] Ellis Childers MD [facility] [place] [address] Felicita Landa APRN [facility] [place] [address] documented as of this encounter Procedures Procedure Name Priority Date/Time Associated Diagnosis Comments CARDIAC DEVICE CHECK - REMOTE Routine 07/14/2019 1:10 AM EDT documented in this encounter Results * Cardiac Device Check - Remote (07/14/2019 1:10 AM EDT) Date Time Interrogation Session [id number] IDCO Implantable Pulse Generator Saloonkeeper Medtronic IDCO Implantable Pulse Generator Model LNQ11 IDCO Implantable Pulse Generator Serial Number [id number] IDCO Type Interrogation Session Remote IDCO Implantable Pulse Generator Type Implantable Diagnostic Monitor IDCO Implantable Pulse Generator Implant Date [id number] IDCO Anatomical Region Laterality Modality Other 07/14/2019 1:10 AM EDT Physician Cardiology IMPLANTABLE CARD IAC DEVICE documented in this encounter Visit Diagnoses Not on filedocumented in this encounter Care Teams Cardiology Clinical Nurse Specialist Relationship Specialty Start Date End Date Radha Mckeon MD [address] [place] [address] PCP - General 09/23/10 documented as of this encounter
--- OUTSIDE RECORDS SUMMARY | 2024-07-24 17:28 | XMS_ITS | Encounter Summary ---
Author Organization [facility] [place] [address] Care Team Providers Care Per Assessment Nurse Name Role Phone Radha Mckeon MD Primary Care Provider [phone] Reason for Visit * Reason Onset Date Comments Results 01/16/2019 Encounter Details Date Type Department Care Team (Late st Contact Info) Description 01/16/2019 Tele[place] [address] PA [facility] [place] [address] Results Social History Tobacco Use Types Packs/Day Years [...] encounter Miscellaneous Notes * Telephone Encounter - Bonny Pete - 01/17/2019 12:30 PM EDT Can we please call Malik to discuss in details the finding of the aspiration? Best call back number is [phone] He has Wednesday and Wednesday's off. * Telephone Encounter - Rand Rodriguez RN - 01/17/2019 12:22 PM EDT Patient call to CC question of his results. Reviewed labs and offered assurance that no abnormal results were noted. Sent to scheduling team in hopes to coordinate apt with [facility] for day of existing spine appointments. * Telephone Encounter - Nallely Armando - 01/16/2019 11:40 AM EDT LM#1 to schedule patient a follow up with [address] to discuss Aspiration results, done on 01/02/19 documented in this encounter Plan of Treatment Upcoming Encounters Date Type Department Care Team (Late st Contact Info) Description 08/18/2024 11:00 AM EDT Hospital Encounter Non-[place] [address] Arrived 02/22/2025 1:30 PM EDT Appointment Hematology and Oncology at [address] 02/22/2025 2:30 PM EDT Office Visit Hematology [place] [address] Ellis Childers MD [facility] [address] [place] [address] Felicita Landa APRN [facility] [place] [address] documented as of this encounter Visit Diagnoses Not on filedocumented in this encounter Care Teams Per Assessment Nurse Relationship Specialty Start Date End Date Radha Mckeon MD [address] [place] [address] PCP - General 09/23/10 documented as of this encounter
--- OUTSIDE RECORDS SUMMARY | 2024-07-24 17:28 | XMS_ITS | Encounter Summary ---
[place] [address] Care Team Providers Care Accessories Repairer Name Role Phone Radha Mckeon MD Primary Care Provider [phone] Reason for Referral * Diagnostic Test (Routine) - Closed Specialty Diagnoses / Procedures Referred By Contlibby t Referred To Contact Radiology Diagnoses Chronic pain of right knee Procedures NM 3 Phase Bone Scan [address] PA [facility] [place] [address] [place] [address] Referral ID Status Reason Start Date Expiration Date V isits Requested Visits Authorized [id number] Closed Specialty Service Requested 03/29/2019 03/28/2020 1 1 * Diagnostic Test (Routine) - Closed Specialty Diagnoses / Procedures Referred By Becki guillory Referred To Contact Radiology Diagnoses Chronic pain of right knee Procedures CT Knee wo Contrast Right (Generic) [address] PA [facility] [place] [address] [facility] [place] [address] Referral ID Status Reason Start Date Expiration Date V isits Requested Visits Authorized [id number] Closed Specialty Service Requested 03/29/2019 03/28/2020 1 1 Reason for Visit * Reason Onset Date Comments Other 03/29/2019 Encounter Details Date Type Department Care Team (Late st Contact Info) Description 03/29/2019 [place] [address] PA [facility] [place] [address] Other Social History Tobacco Use Types Packs/Day Years [...] encounter Miscellaneous Notes * Telephone Encounter - Piedad Vail - 03/31/2019 12:13 PM EDT Patient Scheduled. * Telephone Encounter - Nallely Armando - 03/31/2019 8:29 AM EDT LM#[address] scan and NM bone scan * Telephone Encounter - Renata Estevez - 03/29/2019 3:11 PM EDT Left message with family member to call back to scd CT scan as well as his NM scan * Telephone Encounter - Magy Taveras - 03/29/2019 10:34 AM EDT Spoke with patient's about a new referral that we had received for the right TKA pain that [address] last saw him on 03/08/19 for. Patient would like to follow through with the CT Scan since he is not getting any better. Can you please place the order for the CT scan and what other studies that are needed please. documented in this encounter Plan of Treatment Upcoming Encounters Date Type Department Care Team (Late st Contact Info) Description 08/18/2024 11:00 AM EDT Hospital Encounter Non-Invasive [place] [address] Arrived 02/22/2025 1:30 PM EDT Appointment [place] [address] 02/22/2025 2:30 PM EDT Office Visit [place] [address] Ellis Childers MD [facility] DR [place] [address] Felicita Landa APRN [facility] [address] [place] [address] documented as of this encounter Results * NM 3 Phase [...] please contact the number below. ? Narrative 04/26/2019 6:44 PM EDT EXAMINATION: NM [...] contact the number below. Sukhjinder Jauregui MD [facility] [place] ORDERABLES * CT Knee wo Contrast Right (Generic) (04/26/2019 2:30 PM EDT) Anatomical Region Laterality Modality Knee Right Computed Tomogra phy Impressions 04/26/2019 3:20 PM EDT Multiple foci of periprosthetic lucency within the patella measuring up to 1.3 cm in diameter, compatible with foci of osteolysis. No periprosthetic lucency or evidence of loosening of the femoral or tibial component. Thank you for letting us participate in the care of this patient. For questions regarding this report, please contact the number below. ? 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 There is a small to moderate knee joint fluid, which could be physiologic. There is a Fields's cyst measuring up to approximately 4 cm in maximal dimension. Within the lateral aspect of the patella, there is an intraosseous lucency measuring up to approximately 1.0 cm compatible with a focus of osteolysis (series 7 image 20). There is an additional periprosthetic lucency adjacent to the inferiormost peg of the patellar button measuring up to approximately 1.3 cm, also compatible with a focus of osteolysis (series 7 image 21). No periprosthetic lucency or evidence of loosening is seen in the femur or tibia. There is no periprosthetic fracture. Procedure Note Poonam Rosales MD - 04/26/2019 EXAMINATION: CT KNEE WO CONTRAST RIGHT (GENERIC) CLINICAL HISTORY: right knee pain status post right total kneearthroplasty TECHNIQUE: CT scan of the right knee was performed without intravenous contrast COMPARISON: Attention is also directed to the right knee radiographs ranging from11/30/2007 through 12/13/2018 FINDINGS: The internal rotation of the tibial component with respect to the midpointof the tibial tubercle is measured at approximately 30 degrees. There is a small to moderate knee joint fluid, which could be physiologic.There is a Fields's cyst measuring up to approximately 4 cm in maximaldimension. Within the lateral aspect of the patella, there is an intraosseouslucency measuring up to approximately 1.0 cm compatible with a focus ofosteolysis (series 7 image 20). There is an additional periprosthetic lucencyadjacent to the inferiormost peg of the patellar button measuring up to approximately1.3 cm, also compatible with a focus of osteolysis (series 7 image 21). No periprosthetic lucency or evidence of loosening is seen in the femuror tibia. There is no periprosthetic fracture. IMPRESSION Multiple foci of periprosthetic lucency within the patella measuring up to1.3 cm in diameter, compatible with foci of osteolysis. No periprosthetic lucency or evidence of loosening of the femoral ortibial component. Thank you for letting us participate in the care of this patient. Forquestions regarding this report, please contact the number below. Electronically signed by: Poonam Rosales [facility] ([phone]),at 04/26/2019 3:20 PM Sukhjinder Jauregui MD IMG CT ORDERABLES documented in this encounter Visit Diagnoses Diagnosis Chronic pain of right knee Chronic pain of right knee Chronic pain of right knee documented in this encounter Care Teams Accessories Repairer Relationship Specialty Start Date End Date Radha Mckeon MD [address] [place] [address] PCP - General 09/23/10 documented as of this encounter
--- OUTSIDE RECORDS SUMMARY | 2024-07-24 17:28 | XMS_ITS | Encounter Summary ---
Author Organization [facility] [place] [address] Care Team Providers Care Receiver Setter Name Role Phone Radha Mckeon MD Primary Care Provider [phone] Reason for Referral * Diagnostic Test (Routine) - Closed Specialty Diagnoses / Procedures Referred By Becki guillory Referred To Contact Radiology Diagnoses Chronic pain of right knee Procedures CT Knee wo Contrast Right (Generic) [address] PA [facility] [place] [address] [facility] [place] [address] Referral ID Status Reason Start Date Expiration Date V isits Requested Visits Authorized [id number] Closed Specialty Service Requested 03/29/2019 03/28/2020 1 1 Reason for Visit * Diagnostic Test (Routine) - Closed Specialty Diagnoses / Procedures Referred By Becki guillory Referred To Contact Radiology Diagnoses Chronic pain of right knee Procedures CT Knee wo Contrast Right (Generic) [address] [place] [facility] [place] [address] [facility] [place] [address] Referral ID Status Reason Start Date Expiration Date V isits Requested Visits Authorized [id number] Closed Specialty Service Requested 03/29/2019 03/28/2020 1 1 Encounter Details Date Type Department Care Team (Latest Contact Info) Description 04/26/2019 1:00 PM EDT - 04/26/2019 2:48 PM EDT Hospital Encounter CT Scan at [facility] [place] [address] Sukhjinder Jauregui MD [facility] [place] [address] Chronic pain of right knee Discharge Disposition: Home Social History Tobacco Use [...] AM EDT Hospital Encounter Non-Invasive [place] [phone] Arrived 02/22/2025 1:30 PM EDT Appointment Hematology [place] [address] 02/22/2025 2:30 PM EDT Office Visit Hematology [place] [address] Ellis Childers MD [facility] DR [place] [address] Felicita Landa APRN [facility] [place] [address] documented as of this encounter Procedures Procedure Name Priority Date/Time Associated Diagnosis Comments CT KNEE WO CONTRAST RIGHT Routine 04/26/2019 2:30 PM EDT Chronic pain of right knee documented in this encounter Results * CT Knee wo Contrast Right (Generic) [...] the number below. ? Electronically signed by: Poonam Rosales [facility] ([phone]), at 04/26/2019 3:20 PM Narrative 04/26/2019 3:20 [...] number below. Electronically signed by: Poonam Rosales [facility] ([phone]),at 04/26/2019 3:20 PM Sukhjinder Jauregui MD IMG CT ORDERABLES documented in this encounter Visit Diagnoses Diagnosis Chronic pain of right knee documented in this encounter Care Teams Receiver Setter Relationship Specialty Start Date End Date Radha Mckeon MD [address] [place] [id number] PCP - General 09/23/10 documented as of this encounter
--- OUTSIDE RECORDS SUMMARY | 2024-07-24 17:28 | XMS_ITS | Encounter Summary ---
[place] [address] Care Team Providers Care Entry Level Manager Name Role Phone Radha Mckeon MD Primary Care Provider [phone] Encounter Details Date Type Department Care Team (Late st Contact Info) Description 04/15/2019 Orders Only Cardiology at [address] [phone] Social History Tobacco Use Types Packs/Day Years [...] AM EDT Hospital Encounter Non-Invasive [place] [phone] Arrived 02/22/2025 1:30 PM EDT Appointment Hematology [place] [phone] 02/22/2025 2:30 PM EDT Office Visit Hematology [place] [address] Ellis Childers MD [facility] [address] [place] [address] Felicita Landa APRN [facility] [place] [address] documented as of this encounter Procedures Procedure Name Priority Date/Time Associated Diagnosis Comments CARDIAC DEVICE CHECK - REMOTE Routine 04/15/2019 1:07 AM EDT documented in this encounter Results * Cardiac Device Check - Remote (04/15/2019 1:07 AM EDT) Date Time Interrogation Session [id number] [employer] Implantable Pulse Generator Lens Polisher Hand Medtronic [employer] Implantable Pulse Generator Model [id number] [employer] Implantable Pulse Generator Serial Number [id number] IDCO Type Interrogation Session Remote [employer] Implantable Pulse Generator Type Implantable Diagnostic Monitor ID[employer] Implantable Pulse Generator Implant Date [id number] [employer]CO Anatomical Region Laterality Modality Other 04/15/2019 1:07 AM EDT Physician Cardiology IMPLANTABLE CARD IAC DEVICE documented in this encounter Visit Diagnoses Not on filedocumented in this encounter Care Teams Entry Level Manager Relationship Specialty Start Date End Date Radha Mckeon MD [address] [place] [address] PCP - General 09/23/10 documented as of this encounter
--- OUTSIDE RECORDS SUMMARY | 2024-07-24 17:28 | XMS_ITS | Encounter Summary ---
Author Organization [facility] Address [facility] [place] [address] Care Team Providers Care Box Feeder Name Role Phone Radha Mckeon MD Primary Care Provider [phone] Encounter Details Date Type Department Care Team (Latest Contact Info) Description 01/02/2019 12:45 PM EST - 01/02/2019 11:59 PM [facility] Hospital Encounter XRay at [address] [place] [address] Sukhjinder Jauregiu MD [facility] [place] [address] Status post right knee replacement Discharge Disposition: Home Social History Tobacco Use [...] tablet Take 10 mg by mouth nightly. diclofenac (VOLTAREN) 1 % Gel Apply topically [...] AM EDT Hospital Encounter Non-[place] [address] Arrived 02/22/2025 1:30 PM EDT Appointment Hematology [place] [address] 02/22/2025 2:30 PM EDT Office Visit [place]ematology [place] [address] Ellis Childers MD [facility] DR HEMATOLOGY AND ONCOLOGY [place], [place] [id number] Felicita Landa APRN [facility] DR [place] [address] documented as of this encounter Procedures Procedure Name Priority Date/Time Associated Diagnosis Comments XR JOINT ASPIRATION - LARGE JOINT RIGHT Routine 01/02/2019 1:35 PM EST Status post right knee replacement PROSTHETIC JOINT CULTURE, EXTENDED HOLD, AEROBIC & ANAEROBIC STAT 01/02/2019 1:25 PM EST Status post right knee replacement JOINT CULTURE STAT 01/02/2019 1:25 PM EST Status post right knee replacement FLUID REVIEW REPORT Routine 01/02/2019 1 :25 PM EST ANAEROBIC CULTURE STAT 01/02/2019 1:2 5 PM EST Status post right knee replacement FUNGUS CULTURE STAT 01/02/2019 1:25 PM EST Status post right knee replacement CELL COUNT BODY FLUID STAT 01/02/2019 1:25 PM EST Status post right knee replacement documented in this encounter Results * XR Fluoro Guided Joint Aspiration Large Right (01/02/2019 1:35 PM EST) Anatomical Region Laterality Modality Right Radio Fluoroscop y Impressions 01/02/2019 2:02 PM EST Uneventful right knee joint aspiration. Resident/Fellow: None Attending: There was no attending present for this procedure Procedure performed by Dilcia Jean APRN Thank you for letting us participate in the care of this patient. For questions regarding this report, please contact the number below. ? Electronically signed by: Dilcia Jean, [facility] ([phone]), at 01/02/2019 2:02 PM Narrative 01/02/2019 2:02 PM EST HISTORY: Pain, R/O infection of right knee joint with TKA. RIGHT KNEE JOINT ASPIRATION UNDER FLUOROSCOPY TECHNIQUE: After an extensive conversation with the patient regarding risks and benefits, oral and written consent were obtained.? A pre- procedural time-out was performed, including review of the patient's relevant electronic medical record and allergies, as per [facility] protocol. A pre- procedural time-out was performed as per [facility] protocol. The patient was placed in the right lateral decubitus position on the fluoroscopic table. ??The skin overlying the right knee joint was prepped and draped in the usual aseptic manner. 1% Lidocaine was used to achieve local anesthesia. Under fluoroscopic guidance, 20 gauge 3.5 inch spinal needle was advanced into the joint space. ??Small amount of air was injected to document needle placement. ??Spontaneous fluid returned. All needles removed at end of procedure. FINDINGS: 1. ??Small amount of injected air in the right knee joint space. 2. ??6 ml of serosanguinous fluid aspirated, sent for culture, sensitivity, gram stain, cell count and Synovasure testing. MEDICATIONS: Lidocaine 1% - <5 ml, for subcutaneous anesthesia Fluoroscopy time: 0.10 minutes COMPLICATIONS: None immediate. POST-PROCEDURE CARE: Instructions on monitor of infection, management of post procedure pain were reviewed with patient. Procedure Note Dilcia Jean APRN - 01/02/2019 HISTORY: Pain, R/O infection of right knee joint with TKA. RIGHT KNEE JOINT ASPIRATION UNDER FLUOROSCOPY TECHNIQUE: After an extensive conversation with the patient regarding risks andbenefits, oral and written consent were obtained.? A pre- procedural time-out was performed, including review of the patient's relevant electronic medicalrecord and allergies, as per [facility] protocol. A pre- procedural time-out was performed as per [facility] protocol. The patient was placed in the right lateral decubitus position on the fluoroscopic table. The skin overlying the right knee joint was preppedand draped in the usual aseptic manner. 1% Lidocaine was used to achievelocal anesthesia. Under fluoroscopic guidance, 20 gauge 3.5 inch spinal needlewas advanced into the joint space. Small amount of air was injected todocument needle placement. Spontaneous fluid returned. All needles removed at endof procedure. FINDINGS: 1. Small amount of injected air in the right knee joint space. 2. 6 ml of serosanguinous fluid aspirated, sent for culture, sensitivity,gram stain, cell count and Synovasure testing. MEDICATIONS: Lidocaine 1% - <5 ml, for subcutaneous anesthesia Fluoroscopy time: 0.10 minutes COMPLICATIONS: None immediate. POST-PROCEDURE CARE: Instructions on monitor of infection, management ofpost procedure pain were reviewed with patient. IMPRESSION Uneventful right knee joint aspiration. Resident/Fellow: None Attending: There was no attending present for this procedure Procedure performed by Dilcia Jean APRN Thank you for letting us participate in the care of this patient. Forquestions regarding this report, please contact the number below. Sukhjinder Jauregui MD IMG FLUORO ORDERABL ES * Fluid Review Report (01/02/2019 1:25 PM EST) Fluid Review Report [id number] ? Location: 3T The signing pathologist has (i) examined the relevant preparation(s) for the specimen(s) and (ii) rendered or confirmed the diagnosis(es). . ? Fluid Review DIAGNOSIS KNEE FLUID: No malignant cells are seen on the cytocentrifuge preparation. Electronically signed by: ??Arden Sutton MD Verified: ??01/02/2019 ?Hemat[address]ologi st Performed at: ??-[facility] Dept. of Pathology, [place], [place] ADDITIONAL STUDIES Microscopic Description: ?? Nucleated cells/uL: 443 ?? 443 cells counted by automated analyzer. ?# ?? PMN: ?? 86 ?? MN: ?357 Polymorphonuclear cells (PMN) include neutrophils, eosinophils and basophils. Mononuclear cells (MN) include lymphocytes and histiocytes. CLINICAL INFORMATION Specimen: ? Knee fluid Clinical Diagnosis: ? Arthralgia Indication for Study: ?? Rule out infection of right knee joint [facility] 01/02/2019 1:25 PM EST Amor Rick MD PATHOLOGY/CYTOLOGY ORDERABLES Performing Organization Address [facility] de Phone Number [facility] [place] [address] * Anaerobic Culture (01/02/2019 1:25 PM EST) Anaerobic Culture No anaerobic organisms isolated [facility] Joint fluid specimen (specimen) STRUCTURE OF RIGHT KNEE REGION / Unknown 01/02/2019 1:25 PM EST 01/02/2019 1:51 PM EST Comment:PLEASE DO STAT GRAM STAIN AND CULTURE. HOLD SPECIMEN FOR 14 DAYS. Narrative Resulting Agency Comment Spec In Lab [address] [facility]IO MICROBIOLOGY - GENER AL ORDERABLES Performing Organization Address [facility] Co de Phone Number [facility] [place] [address] * Joint Culture (01/02/2019 1:25 PM EST) Joint Culture No growth at 14 days. [facility] Gram Stain Cytocentrifuge Gram Stain performed Neutrophils seen No microorganisms seen. Results called to and read back by [address] ??01/02/19 14:26:23 [facility] Joint fluid specimen (specimen) STRUCTURE OF RIGHT KNEE REGION / Unknown 01/02/2019 1:25 PM EST 01/02/2019 1:51 PM EST Comment:PLEASE DO STAT GRAM STAIN AND CULTURE. HOLD SPECIMEN FOR 14 DAYS. Narrative Resulting Agency Comment Spec In Lab [facility]DELARIO MICROBIOLOGY - GENER AL ORDERABLES [facility] [place] [address] * Fungus culture Joint (01/02/2019 1:25 PM EST) Fungus Culture No Fungus isolated [facility] Joint specimen (specimen) 01/02/2019 1:25 PM EST 01/02/2019 1:51 PM EST Narrative Resulting Agency Comment Spec In Lab Sukhjinder Jauregui MD MICROBIOLOGY - GENE RAL ORDERABLES Performing Organization Address City/[facility]/ZIP Co de Phone Number [facility] [place] [address] * Cell Count Body Fluid Knee Joint Fluid (01/02/2019 1:25 PM EST) Body Fluid Source Knee Fl [facility] Color, Fld Yellow [facility] Appearance, Fld Hazy [facility] WBC Count, Fld 443 /mcl [facility] Comment: Guideline listed below apply to all body fluids. Differentials on BAL specimens are performed by the Cytology lab section. When Body Fluid WBC count is greater than Zero, a smear is made and scanned. All scan information is correlated with numeric results prior to being released to patients chart. Polymorphonuclear cells BF % 19 % [facility] Comment: Polymorphonuclear cell percent and absolute values may contain Neutrophils, Eosinophils, and Basophils. Body fluid smear will be scanned manually for concordance. Mononuclear cells BF % 81 % [facility] Comment: Mononuclear cell percent and absolute values may contain Lymphocytes and Monocytes. Body fluid smear will be scanned manually for concordance. Polymorphonuclear cells BF ABS 86 /[facility] Comment: Polymorphonuclear cell percent and absolute values may contain Neutrophils, Eosinophils, and Basophils. Body fluid smear will be scanned manually for concordance. Mononuclear cells BF ABS 357 /mcl [facility] Comment: Mononuclear cell percent and absolute values may contain Lymphocytes and Monocytes. Body fluid smear will be scanned manually for concordance. Knee joint synovial fluid (specimen) 01/02/2019 1:25 PM EST 01/02/2019 1:46 PM EST Narrative Resulting Agency Comment Spec In Lab Sukhjinder Jauregui MD BODY FLUIDS AND STO OLS ORDERABLES [facility] [place] [address] documented in this encounter Visit Diagnoses Diagnosis Status post right knee replacement documented in this encounter Administered Medications Inactive Administered Medications - up to 3 most recent administrations Medication Order MAR Action Action Date Dose Rate Site lidocaine (XYLOCAINE) 10 mg/mL (1 %) injection 100 mg 100 mg (10 mL), Intra-articular, ONCE, 1 dose, On 01/02/19 at 1400, Routine Given 01/02/2019 2:00 PM EST 100 mg documented in this encounter Care Teams Box Feeder Relationship Specialty Start Date End Date Radha Mckeon MD [address] [place] [address] PCP - General 09/23/10 documented as of this encounter
--- OUTSIDE RECORDS SUMMARY | 2024-07-24 17:28 | XMS_ITS | Encounter Summary ---
[place] [address] Care Team Providers Care Quill Stripper Name Role Phone Radha Mckeon MD Primary Care Provider [phone] Encounter Details Date Type Department Care Team (Late st Contact Info) Description 2019 Orders Only Cardiology at [address] [phone] Social History Tobacco Use Types Packs/Day Years [...] AM EDT Hospital Encounter Non-Invasive [place] [phone] Arrived 02/22/2025 1:30 PM EDT Appointment Hematology [place] [address] 02/22/2025 2:30 PM EDT Office Visit Hematology [place] [address] Ellis Childers MD [facility] [address] [place] [address] Felicita Landa APRN [facility] [place] [address] documented as of this encounter Procedures Procedure Name Priority Date/Time Associated Diagnosis Comments CARDIAC DEVICE CHECK - REMOTE Routine 2019 10:47 PM EDT documented in this encounter Results * Cardiac Device Check - Remote (2019 10:47 PM EDT) Date Time Interrogation Session [employer] Implantable Pulse Generator Pet Groomer Medtronic IDCO Implantable Pulse Generator Model [id number] [employer] Implantable Pulse Generator Serial Number [id number] ID[employer] Type Interrogation Session Remote IDCO Implantable [...] Time End IDCO Atrial Tachy Statistic AT/AF [place] Percent 0 % IDCO Episode Statistic Recent [...] IDCO Episode Statistic Recent Date Time Start [id number] IDCO Episode Statistic Recent Date Time End [id number] IDCO Episode Statistic Recent Date Time Start IDCO Episode Statistic Recent Date Time End [id number] IDCO Episode Statistic Recent Date Time Start [id number] IDCO Episode Statistic Recent Date Time End [id number] IDCO Episode Statistic Recent Date Time Start [id number] IDCO Episode Statistic Recent Date Time End [id number] IDCO Episode Statistic Total Count 0 IDCO Episode Statistic Total Count 3 IDCO Episode Statistic Total Count 0 IDCO Episode Statistic Total Count 0 IDCO Episode Statistic Total Count 14 IDCO Episode Statistic Type Category Patient Activated IDCO Episode Statistic Total Count 0 IDCO Episode Statistic Type Category AT/AF IDCO Episode Statistic Total Date Time Start [id number] IDCO Episode Statistic Total Date Time End [id number] IDCO Episode Statistic Total Date Time Start [id number] IDCO Episode Statistic Total Date Time End [id number] IDCO Episode Statistic Total Date Time Start [id number] IDCO Episode Statistic Total Date Time End [id number] IDCO Episode Statistic Total Date Time Start [id number] IDCO Episode Statistic Total Date Time End [id number] IDCO Episode Statistic Total Date Time Start [id number] IDCO Episode Statistic Total Date Time End [id number] IDCO Episode Statistic Total Date Time Start [id number] IDCO Episode Statistic Total Date Time End [id number] [employer]CO Anatomical Region Laterality Modality Other 2019 10:4 7 PM EDT Physician Cardiology IMPLANTABLE CARD IAC DEVICE documented in this encounter Visit Diagnoses Not on filedocumented in this encounter Care Teams Quill Stripper Relationship Specialty Start Date End Date Radha Mckeon MD [address] [place] [address] PCP - General 09/23/10 documented as of this encounter
--- OUTSIDE RECORDS SUMMARY | 2024-07-24 17:28 | XMS_ITS | Encounter Summary ---
Author Organization Replaced By [facility] [place] [address] Care Team Providers Care Railroad Commissioner Name Role Phone Radha Mckeon MD Primary Care Provider [phone] Reason for Visit * Reason Comments Follow-up right TKA 01/14/10 Encounter Details Date Type Department Care Team (Late st Contact Info) Description 03/08/2019 3:20 PM EDT Office Visit [place] [address] PA [facility] [place] [address] Status post right knee replacement Social History [...] Reading Time Taken Comments Blood Pressure 135/77 03/08/2019 3:33 PM EDT Pulse 58 03/08/2019 3:33 PM EDT Temperature - - Respiratory Rate - - Oxygen Saturation - - Inhaled Oxygen Concentration - - Weight 78.5 kg (173 lb) 03/08/2019 3:33 PM EDT p t reported Height 182.9 cm (6') 03/08/2019 3:33 PM EDT pt r eported Body Mass Index 23.46 03/08/2019 3:33 PM EDT documented in this encounter Progress Notes * [address], [place] - 03/08/2019 3:20 PM EDT Arthroplasty/Orthopaedic History: 1. Right TKA. Dr. Mi. 01/14/2010 ?? HPI: Malik Machado is a very pleasant 68 y.o. year-old male and is now 9 years post right total knee replacement The patient has been doing poorly, continuing with pain, down the outside of the thigh, into the right knee. He presents today to discuss his most recent procedure: Right knee aspiration. ?? ROS: Denies: fever, chills, night sweats, nausea, or vomiting ?? BP 159/83 (BP Location (NBP): Right arm, Patient Position: Sitting, BP Cuff Sizes: Adult (25-34 cm)) Pulse 54 Ht 182.9 cm (6') Wt 76.2 kg (168 lb) BMI 22.78 kg/m? Physical Exam: Well-appearing male in no acute distress. Alert and Oriented x 3 and answers all questions appropriately. The incision is well healed, with no signs of infection. ?? None today ?? X-RAYS: Knee aspiration reviewed. ?? Questionnaire Responses: [facility] Surgical Postop Visit 03/08/2019 PROMIS-10 General Health Good PROMIS-10 Quality of Life Good PROMIS-10 Physical Health Good PROMIS-10 Mental Health Good PROMIS-10 Social Activity Good PROMIS-10 Everyday Activities Moderately PROMIS-10 Pain 7 PROMIS-10 Fatigue Moderate PROMIS-10 Social Roles Good PROMIS-10 Anxious or Depressed Sometimes PROMIS PHYSICAL HEALTH SCORE 37.4 PROMIS MENTAL HEALTH SCORE 43.5 KOOS JR Scores 50.01 Problems with surgical incision/wound after surgery No Problems with incision - Prescribed antibiotics - Caregiver after your surgical incision problem - Gone to ER since knee surgery Yes [facility] [place] [place] Date of ER visit 01/12/2019 Reason for ER visit At work, I got up from one desk to get my glasses sitting on another desk in order to open a safe on our wall, my right foot got caught by a printer or fax line and fell extremelyhard on office floor. Admitted to hospital since recent ortho surgery No Additional surgery on same body part No TKA Grade 7 Pain in other KNEE None Back pain at this moment Fairly severe Satisfaction with Treatment Somewhat satisfied Choose Same Treatment Again Probably yes [facility] Response 03/08/2019 KOOS JR Scores 50.01 Spine [facility] Response 03/08/2019 KOOS JR Scores 50.01 ? ASSESSMENT/PLAN: Mr. Machado is a 68 y.o. [...] activities as his pain and function allow. ?? We reviewed his aspiration results. There is [...] scan. He is thankful for today's visit. ?? If the spine team thinks his back pain is not referring into his knee, consider repeat bone scan, and CT scan if negative to evaluate tibial component for internal rotation. ?? We discussed the appropriate precautions surrounding dental prophylaxis; according to the AAOS Appropriate Use Criteria we do not recommend antibiotic use prior to dental procedures for Malik. ?? Recommended antibiotic: N/A ?? If Malik has any changes in health status we recommend he contact our office prior to dental procedures for updated recommendations ?? We also discussed maintaining good foot care and giving prompt attention to any source of infectionthroughout the body including foot ulcers and urinary tract infections. ?? All questions were answered. ?? Signed: ANDREE DURAN documented in this encounter Plan of Treatment Upcoming Encounters Date Type Department Care Team (Late st Contact Info) Description 08/18/2024 11:00 AM EDT Hospital Encounter [place] [address] Arrived 02/22/2025 1:30 PM EDT Appointment Hematology [place] [address] 02/22/2025 2:30 PM EDT Office Visit Hematology [place] [address] Ellis Childers MD [facility] [address] [place] [address] Felicita Landa APRN [facility] [address] [place] [address] documented as of this encounter Visit Diagnoses Diagnosis Status post right knee replacement documented in this encounter Care Teams Railroad Commissioner Relationship Specialty Start Date End Date Radha Mckeon MD [address] [place] [address] PCP - General 09/23/10 documented as of this encounter
--- OUTSIDE RECORDS SUMMARY | 2024-07-24 17:28 | XMS_ITS | Encounter Summary ---
Author Organization [facility] [place] [address] Care Team Providers Care Bakery Assistant Name Role Phone Radha Mckeon MD Primary Care Provider [phone] Reason for Referral * Diagnostic Test (Routine) - Closed Specialty Diagnoses / Procedures Referred By Contac t Referred To Contact Radiology Diagnoses Chronic pain of right knee S/P lumbar spinal fusion Chronic bilateral low back pain, with sciatica presence unspecified Procedures MRI Lumbar Spine wo Contrast (Generic) [place] [address] [place] [address] Referral ID Status Reason Start Date Expiration Date V isits Requested Visits Authorized [id number] Closed Specialty Service Requested 01/02/2019 01/02/2020 1 1 Reason for Visit * Diagnostic Test (Routine) - Closed Specialty Diagnoses / Procedures Referred By Contac t Referred To Contact Radiology Diagnoses Chronic pain of right knee S/P lumbar spinal fusion Chronic bilateral low back pain, with sciatica presence unspecified Procedures MRI Lumbar Spine wo Contrast (Generic) Gerber Rodriguez [place] [facility] [place] [address] [facility] [place] [address] Referral ID Status Reason Start Date Expiration Date V isits Requested Visits Authorized [id number] Closed Specialty Service Requested 01/02/2019 01/02/2020 1 1 Encounter Details Date Type Department Care Team (Latest Contact Info) Description 01/31/2019 1:39 PM EDT - 01/31/2019 2:33 PM EDT [place] [address] Rey [place] MD [facility] [address] Chronic pain of right knee; S/P lumbar spinal fusion; Chronic bilateral low back pain, with sciatica presence unspecified Discharge Disposition: Home Social History Tobacco Use [...] Sign Reading Time Taken Comments Blood Pressure 140/80 01/31/2019 2:08 PM EDT Pulse 58 01/31/2019 2:08 PM EDT Temperature 36.7 ??C (98 ??F) 01/31/2019 2:08 PM EDT Respiratory Rate 14 01/31/2019 2:08 PM EDT Oxygen Saturation 99% 01/31/2019 2:08 PM EDT Inhaled Oxygen Concentration - - [...] Pain 11/17/2019 documented as of this encounter Progress Notes * Dave Barrientos RN - 01/31/2019 4:05 PM EDT MRI IV SEDATION NURSING DATABASE Name: OVIDIO MINOR Date of : 1950 AGE 68 y.o. Address: [address] [place] [address] [place] [address] (home) Mobile: Telephone Information: Referring Provider: Gerber Rodriguez Allergies Allergen Reactions ??? Amitriptyline Hcl Palpitations SCAN REQUESTED: MRI Lumbar Spine wo contrast, 40 min ON SCANNER #: 6 TYPE IN ANSWERS: 1. Have you ever had an MRI? Yes, OSH If yes, tell me about the experience. Took po meds, which have stopped working. If no, your name is on our list as needing sedation. Can you tell me why? (folow decision tree) Hadpo sedation at OSH, not as effective 2. Did you have medication for the prior MRI? yes Do you remember what you took? Can't remember Have you ever taken Ativan or Valium? Can't remember. 3. Are you claustrophobic? Yes, very. 4. Can you ride in an elevator? yes 5. Do you snore, use CPAP, or on home O2 or have any breathing problems? no 6. Do you have pain or anxiety? Yes, both. Pain has been getting worse. Do you take pain med's on aregular basis? Oxycodone and Tylenol 7. CAN YOU LAY FLAT? Yes, but my legs go numb. Anesthesia is needed for pt's with ALS, involuntary tremors, uses CPAP/Sleep apnea, failed IV sedation, Cognitive impairment. Pertinent PMH: Patient Active Problem List Diagnosis Code ??? Chronic back pain, causing disability M54.9, G89.29 ??? A-fib I48.91 ??? Hypertension I10 ??? 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 S/P knee replacement Z96.659 ??? Adverse drug effects T50.905A ??? History of surgery Z98.890 ??? Lightheadedness R42 Pertinent PSH: Past Surgical History: Procedure Laterality Date ??? [...] RIGHT/ROTATING PLATFORM CURVED Procedure Date: 01/14/2010 ??? XR JOINT ASPIRATION - LARGE JOINT RIGHT Right 01/02/2019 XR Fluoro Guided Joint Aspiration Large Right 01/02/2019 [facility] RAD XRAY DATE PRIOR SCANS: MED'S GIVEN PASS/FAIL OSH MRI's Can't remember but had something for sedation 01/31/19 Lumbar Spine MRI IV Sedate Fentanyl 75 mcg IV Versed 1.5 mg IV Pass Laboratory Results: Lab Results Component Value Date CREATININE 0.92 11/24/2016 Lab Results Component Value Date K 4.3 11/24/2016 Medications: Prior to Admission medications Medication Sig Start Date End Date Taking? Authorizing Provider acyclovir (ZOVIRAX) 200 mg Capsule 1 cap(s) PROVIDER, HISTORICAL SUMAtriptan (IMITREX) 100 mg Tablet Take 100 mg by mouth as needed for Migraine. Initial dose: 25 mg, 50 mg, or 100 mg (take with fluids). May repeat dose after 2 hours. Max daily dose: 200 mg PROVIDER, HISTORICAL diclofenac (VOLTAREN) 1 % Gel Apply topically daily as needed. PROVIDER, HISTORICAL Triamcinolone Acetonide 0.025 % Lotion Apply topically as needed. PROVIDER, HISTORICAL omeprazole (PRILOSEC) 20 mg Capsule, Delayed Release(E.C.) 20 mg 2 times daily. 10/07/17 PROVIDER, HISTORICAL BOTOX 200 unit Recon Soln Inject 200 Units as directed Q 3 Months. 09/14/17 PROVIDER, HISTORICAL meTOPROLOL succinate (TOPROL-XL) 100 mg Tablet Sustained Release 24 hr Take 1.5 tablets by mouth daily. 12/17/17 Salomón Gan MD verapamil (CALAN-SR) 120 mg Tablet Sustained Release Take 1 tablet by mouth daily. 9/26/17 Christina Lopez APRN levothyroxine (SYNTHROID) 100 mcg Tablet Take 100 mcg by mouth daily. PROVIDER, HISTORICAL apixaban (ELIQUIS) 5 mg Tablet Take 5 mg by mouth 2 times daily. PROVIDER, HISTORICAL valACYclovir (VALTREX) 500 mg Tablet Take 500 mg by mouth daily. 01/04/16 PROVIDER, HISTORICAL oxyCODONE (ROXICODONE) 15 mg Tablet Take 7.5 mg by mouth as needed for Pain. PROVIDER, HISTORICAL MULTIVITAMIN W-MINERALS/LUTEIN (CENTRUM SILVER ORAL) Take 1 tablet by mouth. PROVIDER, HISTORICAL [place]-3 Fatty Acids-Vitamin E (FISH OIL) 1,000 mg Cap Take 2,000 mg by mouth daily. PROVIDER, HISTORICAL acetaminophen (TYLENOL) 500 mg tablet Take 1,000 mg by mouth as needed. Indications: Headache Disorder, Pain PROVIDER, HISTORICAL baclofen (LIORESAL) 10 mg tablet Take 10 mg by mouth nightly as needed. PROVIDER, HISTORICAL simvastatin (ZOCOR) 10 mg tablet Take 10 mg by mouth nightly. PROVIDER, HISTORICAL ( XXX ) You must have a scoop driver present when you check in. This patient has been informed that they require a scoop driver to drive them home after this procedure and that the scoop driver must stay inthe Building during the MRI. In the absence of a scoop driver, IR will not be able to sedate for your scan. Pt verbalized understanding of these instructions during the pre-procedure education via phone. Yes No Revised 03/29/18 * Demian Tucker - 01/31/2019 2:15 PM EDT PRE-SEDATION ASSESSMENT / FOCUSED H&P Risks (including allergic reaction and respiratory depression), and benefits discussed and patient consented to the procedure. I have reviewed with the patient, their prior experience with sedation. The patient has been NPO per protocol I have reviewed the sedation plan for this patient???s case and concur that Fentanyl and Versed areappropriate choices for sedation and will be provided per the protocoled order set for this case Physical Exam Heart: RRR Lungs: clear ASA Classification: ASA 2 - Patient with mild systemic disease with no functional limitations Mallampati Classification: II (soft palate, uvula, fauces visible) documented in this encounter Plan of Treatment Upcoming Encounters Date Type Department Care Team (Late st Contact Info) Description 08/18/2024 11:00 AM EDT Hospital Encounter Non-[place] [address] Arrived 02/22/2025 1:30 PM EDT Appointment H[place]ology [place] [address] 02/22/2025 2:30 PM EDT Office Visit Hematology [place] [address] Ellis Childers MD [facility] [place] [address] Felicita Landa APRN [facility] [place] [address] documented as of this encounter Procedures Procedure Name Priority Date/Time Associated Diagnosis Comments MRI LUMBAR SPINE WITHOUT CONTRAST Routine 01/31/2019 4:48 PM EDT Chronic pain of right knee S/P lumbar spinal fusion Chronic bilateral low back pain, with sciatica presence unspecified documented in this encounter Results * MRI Lumbar Spine [...] contact the number below. ? Narrative 01/31/2019 5:13 PM EDT EXAMINATION: MRI [...] right-sided foramen is patent. Procedure Note Librado iL MD - 01/31/2019 EXAMINATION: MRI LUMBAR SPINE [...] lesions.Visualized retroperitoneal structures are unremarkable. Bilateral renal [id number] most likely represent simple cysts. Findings at [...] in context of the clinical situation (Reference- Tamika et al, [id number]). Findings: (Prevalence in patients without low back pain), discdegeneration (decreased T2 signal, height loss, bulge) (91%), disc T2-signal loss(83%), disc height loss (56%), disc bulge (64%), disc protrusion (32%), annularfissure (38%). Thank you for letting us participate in the care of this patient. Forquestions regarding this report, please contact the number below. Rey [place] MD IMG MRI ORDERABLES documented in this encounter Visit Diagnoses Diagnosis Chronic pain of right knee S/P lumbar spinal fusion Arthrodesis status Chronic bilateral low back pain, with sciatica presence unspecified documented in this encounter Administered Medications Inactive Administered Medications - up to 3 most recent administrations Medication Order MAR Action Action Date Dose Rate Site fentaNYL (PF) 50mcg/mL injection 25 mcg, Intravenous, EVERY 5 MIN PRN, 12 doses, Starting on Wed01/31/19 at 1416, Until Wed02/01/19 at 0434, Pain, or anxiety, 25 mcg IV every 5 minutes to a maximum of 300 mcg PRN for pain or anxiety., Routine Given 01/31/2019 3:45 PM EDT 25 mcg Given 01/31/2019 3:40 PM EDT 25 mcg Given 01/31/2019 3:35 PM EDT 25 mcg midazolam (PF) (VERSED) injection 0.5 mg 0.5 mg, Intravenous, EVERY 5 MIN PRN, 10 doses, Starting on Wed01/31/19 at 1416, Until 02/01/19 at 0434, Anxiety, If patient's anxiety remains uncontrolled, may titrate to Moderate Sedation per [facility] Moderate Sedation Policy: 0.5mg IV every 5 minutes to a maximum of 5 mg., Routine Given 01/31/2019 3:45 PM EDT 0.5 mg Given 01/31/2019 3:40 PM EDT 0.5 mg Given 01/31/2019 3:35 PM EDT 0.5 mg documented in this encounter Care Teams Bakery Assistant Relationship Specialty Start Date End Date Radha Mckeon MD [address] [place] [address] PCP - General 09/23/10 documented as of this encounter
--- OUTSIDE RECORDS SUMMARY | 2024-07-24 17:28 | XMS_ITS | Encounter Summary ---
[place] [address] Care Team Providers Care Regional Ehs Manager Name Role Phone Radha Mckeon MD Primary Care Provider [phone] Encounter Details Date Type Department Care Team (Late st Contact Info) Description 07/04/2019 Orders Only Cardiology at [address] [phone] Social History Tobacco Use Types Packs/Day Years [...] AM EDT Hospital Encounter Non-[place] [address] Arrived 02/22/2025 1:30 PM EDT Appointment Hematology [place] [address] 02/22/2025 2:30 PM EDT Office Visit Hematology [place] [address] Ellis Childers MD [facility] DR [place] [address] Felicita Landa APRN [facility] [place] [address] documented as of this encounter Procedures Procedure Name Priority Date/Time Associated Diagnosis Comments CARDIAC DEVICE CHECK - REMOTE Routine 07/04/2019 3:53 PM EDT documented in this encounter Results * Cardiac Device Check - Remote (07/04/2019 3:53 PM EDT) Date Time Interrogation Session [employer] Implantable Pulse Generator Provider Relations Manager [employer] IDCO Implantable Pulse Generator Model [id number] IDCO Implantable Pulse Generator Serial Number [id number] IDCO Type Interrogation Session Remote IDCO Implantable [...] Time End IDCO Atrial Tachy Statistic AT/AF Wesley Percent 0 % IDCO Episode Statistic Recent [...] IDCO Episode Statistic Recent Date Time Start [id number] IDCO Episode Statistic Recent Date Time End [id number] IDCO Episode Statistic Recent Date Time Start [id number] IDCO Episode Statistic Recent Date Time End [id number] IDCO Episode Statistic Recent Date Time Start [id number] IDCO Episode Statistic Recent Date Time End [id number] IDCO Episode Statistic Recent Date Time Start [id number] IDCO Episode Statistic Recent Date Time End [id number] IDCO Episode Statistic Total Count 0 IDCO Episode Statistic Total Count 3 IDCO Episode Statistic Total Count 0 IDCO Episode Statistic Total Count 0 IDCO Episode Statistic Total Count 14 IDCO Episode Statistic Type Category Patient Activated IDCO Episode Statistic Total Count 0 IDCO Episode Statistic Type Category AT/AF IDCO Episode Statistic Total Date Time Start [id number] IDCO Episode Statistic Total Date Time End [id number] IDCO Episode Statistic Total Date Time Start [id number] IDCO Episode Statistic Total Date Time End [id number] IDCO Episode Statistic Total Date Time Start [id number] IDCO Episode Statistic Total Date Time End [id number] IDCO Episode Statistic Total Date Time Start [id number] IDCO Episode Statistic Total Date Time End [id number] IDCO Episode Statistic Total Date Time Start [id number] IDCO Episode Statistic Total Date Time End [id number] IDCO Episode Statistic Total Date Time Start [id number] IDCO Episode Statistic Total Date Time End [id number] IDCO Anatomical Region Laterality Modality Other 07/04/2019 3:53 PM EDT Physician Cardiology IMPLANTABLE CARD IAC DEVICE documented in this encounter Visit Diagnoses Not on filedocumented in this encounter Care Teams Regional Ehs Manager Relationship Specialty Start Date End Date Radha Mckeon MD [address] [place] [address] PCP - General 09/23/10 documented as of this encounter
--- OUTSIDE RECORDS SUMMARY | 2024-07-24 17:28 | XMS_ITS | Encounter Summary ---
Author Organization Count Includes [facility] [address] Care Team Providers Care Design Cell Engineer Name Role Phone Radha Mckeon MD Primary Care Provider [phone] Reason for Visit * Reason Onset Date Comments Appointment 04/27/2019 Encounter Details Date Type Department Care Team (Late st Contact Info) Description 04/27/2019 Telephone [place] [address] Sukhjinder Jauregui MD [facility] [place] [address] Appointment Social History Tobacco Use Types Packs/Day [...] encounter Miscellaneous Notes * Telephone Encounter - Camilla Olvera - 04/27/2019 5:[address] If [address] could call around 10am, that would be great. * Telephone Encounter - Camilla Olvera - 04/27/2019 4:47 PM EDT Malik called back, I scheduled him for first available 05/29/19. Malik would like his test results given to him, via phone call and also a physical copy sent to him. Malik needs all this information so he can decide if this is something he needs to report to his company as a workers comp issue. Did his fall on 01/09/19 cause the need for Revision ? Best #: [phone] Please call * Telephone Encounter - Rubio Damon RN - 04/27/2019 12:09 PM EDT Please call patient to f/u with Dr. Jauregui as noted. Rubio * Telephone Encounter - Rubio Damon RN - 04/27/2019 9:35 AM EDT Librado. Patient is adamant about going over his results with you before an appointment with Dr. Jauregui. Please call him back. Thank you. Rubio * Telephone Encounter - Nallely Armando - 04/27/2019 8:03 AM EDT Images from the original note were not included. LM#1 to schedule patient for an appointment with Dr Jauregui for NXR RIGHT TKA DOS 01/14/10 DISCUSS RESULTS & POSSIBLE REVISION [address], ANDREE P Leb Orthopaedics Production Superintendent ?? Team, Can we schedule a follow up with Dr. Jauregui to review his most recent tests, and discuss source for pain, and possible revision? Librado documented in this encounter Plan of Treatment Upcoming Encounters Date Type Department Care Team (Late st Contact Info) Description 08/18/2024 11:00 AM EDT Hospital Encounter [place] [address] Arrived 02/22/2025 1:30 PM EDT Appointment Hematology and Oncology at [place] [address] 02/22/2025 2:30 PM EDT Office Visit Hematology [place] [address] Ellis Childers MD [facility] [address] [place] [address] Felicita Landa APRN [facility] [address] [place] [address] documented as of this encounter Visit Diagnoses Not on filedocumented in this encounter Care Teams Design Cell Engineer Relationship Specialty Start Date End Date Radha Mckeon MD [address] [place] [address] PCP - General 09/23/10 documented as of this encounter
--- OUTSIDE RECORDS SUMMARY | 2024-07-24 17:28 | XMS_ITS | Encounter Summary ---
[place] [address] Care Team Providers Care Eating Disorder Specialist Name Role Phone Radha Mckeon MD Primary Care Provider [phone] Reason for Referral * Diagnostic Test (Routine) - Closed Specialty Diagnoses / Procedures Referred By Contac t Referred To Contact Radiology Diagnoses Chronic pain of right knee Procedures NM 3 Phase Bone Scan [address] PA [facility] [place] [address] [place] [address] Referral ID Status Reason Start Date Expiration Date V isits Requested Visits Authorized [id number] Closed Specialty Service Requested 03/29/2019 03/28/2020 1 1 Reason for Visit * Diagnostic Test (Routine) - Closed Specialty Diagnoses / Procedures Referred By Contac t Referred To Contact Radiology Diagnoses Chronic pain of right knee Procedures NM 3 Phase Bone Scan [address] PA [facility] [place] [address] [facility] [place] [address] Referral ID Status Reason Start Date Expiration Date V isits Requested Visits Authorized [id number] Closed Specialty Service Requested 03/29/2019 03/28/2020 1 1 Encounter Details Date Type Department Care Team (Latest Contact Info) Description 04/26/2019 11:50 AM EDT - 04/26/2019 12:59 PM EDT Hospital Encounter [place] [address] [facility] [place] [address] Chronic pain of right knee [...] AM EDT Hospital Encounter Non-[place]vasive [place] [address] Arrived 02/22/2025 1:30 PM EDT Appointment Hematology [place] [address] 02/22/2025 2:30 PM EDT Office Visit Hematology [place] [phone] [facility] DR [place] [address] [facility] HEMATOLOGY AND ONCOLOGY [place], [place] [id number] documented as of this encounter Procedures Procedure [...] below. ? Electronically signed by: Sulema Arnold [facility] ([phone]), at 04/26/2019 6:44 PM Narrative 04/26/2019 6:44 [...] number below. Electronically signed by: Sulema Arnold [facility]([phone]), at 04/26/2019 6:44 PM Sukhjinder Jauregui MD IM NM ORDERABLES documented in this encounter Visit Diagnoses Diagnosis Chronic pain of right knee documented in this encounter Administered Medications Inactive Administered Medications - up to 3 most recent administrations Medication Order MAR Action Action Date Dose Rate Site technetium (Tc-99m) methylene diphosphonate (MDP) injection 26.2 mCi 26.2 mCi, Intravenous, ONCE PRN, 1 dose, Starting on Wed04/26/19 at 1211, Until Wed04/26/19 at 1205, Per Protocol, Routine Given 04/26/2019 12:05 PM EDT 26.2 mCi documented in this encounter Care Teams Eating Disorder Specialist Relationship Specialty Start Date End Date Radha Mckeon MD [address] [place] [address] PCP - General 09/23/10 documented as of this encounter
--- OUTSIDE RECORDS SUMMARY | 2024-07-24 17:28 | XMS_ITS | Encounter Summary ---
Author Organization [facility] Address [facility] [place] [place] [address] Care Team Providers Care Mathematical Engineer Name Role Phone Radha Mckeon MD Primary Care Provider Reason for Visit * Reason Comments Medication Refill Encounter Details Date Type Department Care Team (Late st Contact Info) Description 03/05/2019 Refill Cardiology at [address] [address] Salomón Gan MD [facility] [place] [place] [address] Medication Refill Social History Tobacco Use Types [...] AM EDT Hospital Encounter Non-Invasive [place] [address] Arrived 02/22/2025 1:30 PM EDT Appointment Hematology [place] [address] 02/22/2025 2:30 PM EDT Office Visit Hematology [place] [address] Ellis Childers MD [facility] [address] HEMATOLOGY [place] [address] Felicita Landa APRN [facility] [address] HEMATOLOGY [place] [address] documented as of this encounter Visit Diagnoses Diagnosis Paroxysmal atrial fibrillation Atrial fibrillation documented in this encounter Care Teams Mathematical Engineer Relationship Specialty Start Date End Date Radha Mckeon MD [address] [place] [address] PCP - General 09/23/10 documented as of this encounter
--- OUTSIDE RECORDS SUMMARY | 2024-07-24 17:28 | XMS_ITS | Encounter Summary ---
[place] [address] Care Team Providers Care Arc Cutter Name Role Phone Radha Mckeon MD Primary Care Provider [phone] Encounter Details Date Type Department Care Team (Late st Contact Info) Description 05/29/2019 Communications [place] [address] Jolie Huddleston Social History Tobacco Use Types Packs/Day Years [...] encounter Miscellaneous Notes * Telephone Encounter - Jolie Huddleston - 05/29/2019 10:23 AM EDT I followed up [facility] 05/22/19 with a telephone conversation. He indicated that at this time theKnee is not related to W/C. He will advise moving forward if we can bill/release records to [facility] W/C. D-H W/C Health Information Release Form will need to be signed by him if he chooses to proceed. documented in this encounter Plan of Treatment Upcoming Encounters Date Type Department Care Team (Late st Contact Info) Description 08/18/2024 11:00 AM EDT Hospital Encounter Non-[place] [address] Arrived 02/22/2025 1:30 PM EDT Appointment Hematology [place] [address] 02/22/2025 2:30 PM EDT Office Visit Hematology [place] [address] Ellis Childers MD [facility] DR HEMATOLOGY [place] [address] Felicita Landa APRN [facility] DR HEMATOLOGY [place] [address] documented as of this encounter Visit Diagnoses Not on filedocumented in this encounter Care Teams Arc Cutter Relationship Specialty Start Date End Date Radha Mckeon MD [address] [place] [address] PCP - General 09/23/10 documented as of this encounter
--- OUTSIDE RECORDS SUMMARY | 2024-07-24 17:28 | XMS_ITS | Encounter Summary ---
Author Organization [facility] [address] Care Team Providers Care Catering Associate Name Role Phone Radha Mckeon MD Primary Care Provider [phone] Reason for Visit * Reason Comments Follow Up Surgery right TKA DOS 0; discuss revision Encounter Details Date Type Department Care Team (Late st Contact Info) Description 05/29/2019 3:30 PM EDT Office Visit [place] [address] Sukhjinder Jauregui MD [facility] DR [place] [address] Debility; Pain of right lower extremity; Failure [...] Sign Reading Time Taken Comments Blood Pressure 135/80 05/29/2019 3:42 PM EDT Pulse 62 05/29/2019 3:42 PM EDT Temperature - - Respiratory Rate - - Oxygen Saturation - - Inhaled Oxygen Concentration - - Weight 74.4 kg (164 lb) 05/29/2019 3:42 PM EDT Height 182.9 cm (6') 05/29/2019 3:42 PM EDT Body Mass Index 22.24 05/29/2019 3:42 PM EDT documented in this encounter Progress Notes * [address] PA - 05/29/2019 3:30 PM EDT Arthroplasty/Orthopaedic History: 1. Right TKA. Dr. Mi. 01/14/2010. Chief complaint: Consult for Right Knee Revision History of present illness: Malik Machado is a 69 y.o. year-old male who presents today for surgical consultation for right knee revision. Patient is had chronic right knee pain ever since his knee replacement was put in in [address] Mi. He has had an extensive work-up by Dr. Mi himself, as well as my most recently knee. The patient has had negative labs in the past, and a negative bone scan. He did not proceed with any revision or treatment after his work-up. He recently followed up in my clinic where we initiated the painful total joint replacement work-up again. Labs were obtained, his sedimentation rate was above 20 which prompted an aspiration. Fortunately, this yielded a n egative culture and reassuringly low nucleated cell count. Afterwards, his bone scan was repeated which showed continued and increased uptake in his patella. This was then followed by a CT scan whichshows possible loosening of the patellar component, as well as surrounding osteolysis. I did contact him over the phone with these results, he presents today under Dr. Jauregui's clinic to discuss revision. He denies any interval change in his symptoms or change in his health. Past medical history: Patient Active Problem List Diagnosis Date Noted ??? A-fib 08/13/2011 Priority: High ??? Hypertension 08/13/2011 Priority: Medium ??? Lightheadedness 12/24/2016 ??? Adverse drug effects 11/24/2016 ??? History of surgery 11/24/2016 ??? S/P knee replacement 02/29/2012 ??? 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 Chronic back pain, causing disability History of blood clots or bleeding disorders: Denies Denies history of cardiac, lung, kidney, liver diease or diabetes Medications: ??? metoprolol succinate (TOPROL-XL) 100 mg Tablet Sustained Release 24 hr ??? acyclovir (ZOVIRAX) 200 mg Capsule ??? SUMAtriptan (IMITREX) 100 mg Tablet ??? diclofenac (VOLTAREN) 1 % Gel ??? Triamcinolone Acetonide 0.025 % Lotion ??? omeprazole (PRILOSEC) 20 mg Capsule, Delayed Release(E.C.) ??? BOTOX 200 unit Recon Soln ??? verapamil (CALAN-SR) 120 mg Tablet Sustained Release ??? levothyroxine (SYNTHROID) 100 mcg Tablet ??? apixaban (ELIQUIS) 5 mg Tablet ??? valACYclovir (VALTREX) 500 mg Tablet ??? MULTIVITAMIN W-MINERALS/LUTEIN (CENTRUM SILVER ORAL) ??? [place]-3 Fatty Acids-Vitamin E (FISH OIL) 1,000 mg Cap ??? acetaminophen (TYLENOL) 500 mg tablet ??? baclofen (LIORESAL) 10 mg tablet ??? simvastatin (ZOCOR) 10 mg tablet ??? oxyCODONE (ROXICODONE) 15 mg Tablet Allergies: Allergies Allergen Reactions ??? Amitriptyline Hcl Palpitations Social history: Social History Tobacco Use ??? Smoking status: Former Smoker Packs/day: 2.00 Years: 16.00 Pack years: 32.00 Types: Cigarettes Last attempt to quit: 08/13/1983 Years since quittin.8 ??? Smokeless tobacco: Never Used Substance Use Topics ??? Alcohol use: No Review of systems: No chest pain or shortness of breath at baseline No fevers, night sweats or chills Questionnaire Responses: myD-H Hip & Knee 03/08/2019 MODEMS Satisfaction - VR12 - Physical Component Summary - VR12 - Mental Component Summary - PROMIS-10 General Health Good PROMIS-10 Quality of Life Good PROMIS-10 Physical Health Good PROMIS-10 Mental Health Good PROMIS-10 Social Activity and Relationship Satisfaction Good PROMIS-10 Social Roles at Home and Work Good PROMIS-10 Everyday Physical Activities Moderately PROMIS-10 Anxious or Depressed last 7 days Sometimes PROMIS-10 Fatigue last 7 days Moderate PROMIS-10 Pain last 7 days 7 PROMIS PHYSICAL HEALTH SCORE (range 16-68) 37.4 PROMIS MENTAL HEALTH SCORE (range 21-68) 43.5 Physical Exam: No Apparent distress Right Knee Exam: Unchanged. Medial and anteriorly based incisions remain well healed. There is no audible or palpable clunk. There is some varus and valgus laxity in about 30 degrees of knee flexion. PT/DP pulses 2+.Superficial peroneal, deep peroneal, sural, saphenous, and tibial nerves intact to touch. He has a painful arc of motion, pain out of proportion on exam. He can flex to 125 degrees, and extend to 0 degrees with no lag. Imaging: Personal review of the patient's imaging reveals: CT Scan: IMPRESSION Multiple foci of periprosthetic lucency within the patella measuring up to 1.3 cm in diameter, compatible with foci of osteolysis. Bone Scan: IMPRESSION 1. No evidence of infected right total knee arthroplasty. 2. Diffusely increased activity involving the patella component of the right total knee arthroplasty, which, when correlated with the CT findings of osteolysis, raising the question of loosening. 3. Nonspecific small focus of radiotracer uptake along the tibial tray medially and anteriorly, without corresponding CT abnormality. Assessment: 69 y.o. year-old male with painful right total knee replacement, concern for loose patellar component Plan: We reviewed his imaging in detail. We reviewed his clinical exam. Unfortunately, he does havepain out of proportion on exam during his clinical exam. We reviewed several options moving forward. We discussed one option is we can continue to monitor this yearly. We discussed following up for aclinical exam, and radiographs to evaluate his femoral, tibial components along with evaluating hispatella for bone loss. We discussed the other option is to consider a right knee revision. We discussed the concern with this is his chronic pain in regards to his back, and his knee. We discussed there is always a chance that he continues to have knee pain even after his revision. We discussed that the likely scenario is that he will have some element of improvement due to his revision, but willlikely have continued pain. He is receptive to this. We reviewed the risks of this: Infection, bleeding, damage to nerves and vessels, hardware failure, need for repeat procedure. He will take sometime to think about this, and call with his decision. This patient was seen in conjuncture with Dr. Jauregui. Follow up: Call if would like to proceed with revision, if not, follow up in 1 year This plan was discussed with the patient and they are in agreement. All of the patient's questions were answered. The above dictation was made with voice recogonition software The patient requested an addendum be placed in his note. The patient did suffer a fall onto his involved knee mentioned in the above note. This was at work as he tripped. He did land on the outside of his knee. He was seen for this with an x-ray. His x-rays showed no fracture, dislocation, displacement. He did however clinically have a swollen and bruised lateral femoral condyle when he was seen f or this visit. I do think that this contributes to some pain, but it was likely soft tissue, and did not involve any structural stabilizers of his knee. Nor do I think that this caused his loose patellofemoral component. I think this is due to normal wear from the knee replacement and is from the osteolysis. This most certainly could have aggravated his knee and had an increase in his pain however . * Sukhjinder Jauregui MD - 05/29/2019 3:30 PM EDT Images from the original note were not included. Department of Orthopaedics Division of Adult Joint Reconstructive Surgery May 29, 2019 I had the pleasure of evaluating Malik Machado in clinic in conjunction with one of my associate providers. In brief Mr. Machado is a 69 y.o. year old male seen in conjunction with [address] PA-C for chief complaint of right knee pain. The patient underwent an uncemented right total knee replacement in [address] Mi. He states this is been complicated by chronic pain since surgery. He is never felt like the knee was perfect. He also has a history of failed back surgery and multiple operations on his lumbar spine. He has been on chronic pain medication because of his low back issues and states he lives in chronic pain. His right knee has been worked up by [address] now which included lab work. His ESR was 38 and his CRP was 0.8. This subsequently led to an aspiration which demonstrated 448 cells and 19% polys. His cultures were negative. He has a CAT scan, bone scan and x-rays. 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 His CT scan demonstrates multiple lytic lesions deep to the patella button in the region of the cement mantle. I explained to the patient that I have concerns his patella but may be loose. I did outline another cause for pain postoperatively after uncemented knee replacement is fibrous ingrowth. I was very clear without that Martinez not have a clear explanation for his pain and then up to 20% of people can be dissatisfied with her knee replacements. I was clear that with any surgical intervention he may not see any improvement with his pain and discomfort but that if in fact his patella was loose or 1 of his other implants were loose and we corrected that he might find relief. I offered him no guarantees with any surgicalintervention and asked that he think things over. He does suffer from chronic pain and specificallychronic back pain but if he does not fact have a problem with his prosthesis it may be correctable with surgery. He will think things over and let us know how he like to proceed. All questions were answered. Sukhjinder Jauregui MD, MS Chief, Division of Adult Reconstructive [place] TechnicianClerk Of Superior Court of Orthopaedics Department of Orthopaedics [facility] [phone] [email or web address] documented in this encounter Plan of Treatment Upcoming Encounters Date Type Department Care Team (Late st Contact Info) Description 08/18/2024 11:00 AM EDT Hospital Encounter Non-Invasive [place] [address] Arrived 02/22/2025 1:30 PM EDT Appointment Hematology [place] [address] 02/22/2025 2:30 PM EDT Office Visit Hematology [place] [address] Ellis Childers MD [facility] DR HEMATOLOGY [place] [address] Felicita Landa APRN [facility] HEMATOLOGY [place] [address] documented as of this encounter Procedures Procedure Name Priority Date/Time Associated Diagnosis Comments TOTAL KNEE REVISION ARTHROPLASTY, COMPLETE Routine 05/29/2019 4:20 PM EDT documented in this encounter Results * CRP, acute inflammation (11/09/2019 2:09 PM EST) [facility] C-Reactive Protein 4.4 <=4.9 mg/L [facility] Blood specimen (specimen) 11/09/2019 2:09 PM EST 11/09/2019 2:14 PM EST Narrative Resulting Agency Comment Spec In Lab Sukhjinder Jauregui MD CHEMISTRY ORDERABLE S Performing Organization Address City/[facility]/ZIP Co de Phone Number [facility] [place] [address] * Sedimentation rate (11/09/2019 2:09 PM EST) [facility] Sedimentation Rate Automated 34 2 - 37 mm/hr [facility] Comment: Effective October 11, 2019 new capillary photometric technology has resulted in a change in reference ranges. It is recommended that each ESR result be reviewed with its own age appropriate reference range. Blood specimen (specimen) 11/09/2019 2:09 PM EST 11/09/2019 2:14 PM EST Narrative Resulting Agency Comment Spec In Lab Sukhjinder Jauregui MD HEMATOLOGY ORDERABL ES Performing Organization Address City/[facility]/ZIP Co de Phone Number [facility] [place] [address] * (ABNORMAL) APTT (11/09/2019 2:09 PM EST) Partial Thromboplastin Time 38(H) 25 - 37 sec [facility] Comment: The PTT is NOT appropriate for heparin monitoring. Use the Anti-Xa level for heparin monitoring (HEP UFH) or LMWH monitoring (HEP LMW). A PTT less than 37 seconds generally indicates adequate hemostasis. Blood specimen (specimen) 11/09/2019 2:09 PM EST 11/09/2019 2:14 PM EST Narrative Resulting Agency Comment Spec In Lab Sukhjinder Jauregui MD HEMATOLOGY ORDERABL ES Performing Organization Address [facility] Phone Number [facility] [place] [address] * (ABNORMAL) Prothrombin Time (11/09/2019 2:09 PM EST) Prothrombin Time 13.7(H) 9.4 - 12.5 sec [facility] International Normalization Ratio 1.2 [facility] Comment: An INR <2.0 indicates [...] MD HEMATOLOGY ORDERABL ES Performing Organization Address [facility] Co de Phone Number [facility] [place] [address] * Basic Metabolic Panel (non-fasting) (11/09/2019 2:09 PM EST) Glucose 95 65 - 199 mg/dL [facility] Comment:Diabetes: >=200 mg/d L plus symptoms Blood Urea Nitrogen 19 10 - 20 mg/dL [facility] Creatinine 1.03 0.80 - 1.50 mg/dL [facility] Sodium 140 135 - 145 mmol/L [facility] Potassium 4.5 3.5 - 5.0 mmol/L [facility] Comment: Please note: ??Patients with WBC >100,000 may have falsely elevated Potassium levels. ??For accurate Potassium quantification in these patients send serum separator tube (gold top) for subsequent determinations. ??Contact the Clinical Chemistry Laboratory if there are any questions. Chloride 105 98 - 107 mmol/L [facility] Carbon Dioxide 26 22 - 31 mmol/L [facility] Anion Gap 9 5 - 15 mmol/L [facility] Calcium 9.7 8.5 - 10.5 mg/dL [facility] Est Glomerular Filtration Rate 75 >=60 mL/min/1. 73 m?? [facility] Comment: The eGFR was calculated using the CKD-EPI equation. As with all creatinine based estimates of kidney function, eGFR values calculated with the CKD-EPI equation are not accurate in patients with acute kidney failure, extremes of body mass or the acutely ill. [email or web address] eGFR 87 >=60 mL/min/1. 73 m?? [facility] Comment: The eGFR was calculated using the CKD-EPI equation. As with all creatinine based estimates of kidney function, eGFR values calculated with the CKD-EPI equation are not accurate in patients with acute kidney failure, extremes of body mass or the acutely ill. [email or web address] Blood specimen (specimen) 11/09/2019 2:09 PM EST 11/09/2019 2:14 PM EST Narrative Resulting Agency Comment Spec In Lab Sukhjinder Jauregui MD CHEMISTRY ORDERABLE S [facility] [place] [address] documented in this encounter Visit Diagnoses Diagnosis Debility Debility, unspecified Pain of right lower extremity Failure of total knee replacement, initial encounter documented in this encounter Care Teams Catering Associate Relationship Specialty Start Date End Date Radha Mckeon MD [address] [place] [address] PCP - General 09/23/10 documented as of this encounter
--- OUTSIDE RECORDS SUMMARY | 2024-07-24 17:29 | XMS_ITS | Encounter Summary ---
Author Organization [facility] [place] [address] Care Team Providers Care Sem Manager Name Role Phone Radha Mckeon MD Primary Care Provider [phone] Reason for Visit * Physical Therapy (Routine) - Closed Specialty Diagnoses / Procedures Referred By Becki guillory Referred To Contact Physical Therapy Diagnoses Vertigo Elke Samule, HOME SUPPORT WORKER [facility] [place] [address] [facility] [place] [address] Referral ID Status Reason Start Date Expiration Date V isits Requested Visits Authorized [id number] Closed Evaluate and Treat 02/24/2018 02/24/2019 1 1 Encounter Details Date Type Department Care Team (Late st Contact Info) Description 03/21/2018 1:45 PM EDT [place] [address] Marzena Montero, PT Vertigo Social History Tobacco Use Types Packs/Day Years [...] as of this encounter Progress Notes * Marzena Montero, PT - 03/21/2018 1:45 PM EDT Images from the original note were not included. Outpatient Physical Therapy Initial Evaluation Note ?? Date of Exam/First treatment: 03/21/2018 Date of Onset or Referral Date: 02/24/2018 Referring Provider: Elke Samuel APRN ?? Diagnosis and pertinent co-morbidities affecting Plan of Care: 1. Lightheadedness ?? 2. RBBB (right bundle branch block with left anterior fascicular block) ?? 3. Paroxysmal atrial fibrillation ?? 4. Chronic back pain, causing disability ? Primary Insurance: Payor: MEDICARE / Plan: MEDICARE PART A & B / Product Type: *No Product type* / Medicare Cert Period: 03/21/2018 - 06/22/2018 ? HISTORY: Malik Machado is a 67 y.o. male referred to physical therapy for dizziness/lightheadedness that can last for minutes and is not related to positional changes. Dizziness occurs spontaneouslyand denies spinning, but indicates lightheaded feelings and the need to sit down. This has been occurring since losing his daughter in 2017. Pt does have a hx of Migraines and A-fib s/p ablations x2 and is being followed by both Neurology and Cardiology to assess if dizziness is related to either of those diagnoses. Pt indicates diplopia which occurs spontaneously, but then after diplopia a headache occurs and pt feel this is related to his migraines. ?? Hearing loss: None per pt report. Tinnitus: pt indicates tinnitus 24/05. Aural Fullness: None Aural Pain: None ?? Migraine history: Yes. Pt is being treated with Botox for Migraine management for the past ~9 months. Pt has had migraines for 2-3 yrs per pt report. ?? Number of Falls in last year: 0 ?? Functional Limitations: Patient reports difficulty with returning to work. ?? Previous Level of Function: Independent ?? Home Setup: One story home with 5 steps and 1 rail to enter home. ?? Medical/Surgical History: refer to medical record ?? Medications: refer to medical record ?? Social History / Personal factors affecting plan of care: work status: Currently disabled. Work type: Currently disabled. ? Pain: 8/10- pt indicates constantly an 8/10 due to chronic back pain. ?? Dizziness rating at start of eval: 0/10 ? OBJECTIVE FINDINGS: ?? Cervical Examination: Cervical ROM (degrees): All WFL ?? Sitting VAT: (L) (-), (R) (-) ?? Oculomotor Examination: EOMI No resting or gaze evoked nystagmus noted Smooth Pursuit WNL Saccades WNL Accomodation: Ocular Alignment: ?? Vestibular-Ocular Reflex Examination: Intact VOR cancellation Head thrust test: (-) Doyle ? Positional Vertigo Screen: Not Tested due to lack of positional symptoms in history and that lightheaded last for minutes per pt report. ?? Rhomberg: EO 30 seconds EC 30 seconds with increased lateral sway ?? Tandem: (L) anterior EO 21 sec, EC 0 sec pt needs UE support to position feet in tandem stance and then with moderate lateral sway and arms wide stretched trying to maintain balance. (R) anterior EO 17 sec, EC 0 sec pt needs UE support to position feet in tandem stance and then with moderate lateral sway and arms wide stretched trying to maintain balance. ?? SLS: Unable. ?? Gait: Pt is able to ambulate independently with a shuffling gait pattern. Pt somewhat antalgic and indicates back pain causing deficits. ?? Computerized Dynamic Posturography (CDP) Please see scanned documents tab for specific information ? Outcome Measures: ?? Outcome Measures Tracking ? Date 03/21/18 ? ABC (self-report) 82.5 ? DHI (self-report) 20 ? CSS (self-report) ? PDQ-39 (self-report) ? 30 Second Sit to Stand ? Moncada Balance Scale ? Tinetti Balance and Gait ? Dynamic Gait Index ? Functional Gait Assessment 17 ? Timed Up and Go ? 10 Meter Walk Test ? 6 Minute Walk Test ? Dynamic Visual Acuity ? CDP - Sensory Organization Testing Composite Score 59 ? Functional Gait Assessment ? (higher score = better balance) ? score 0-3 ?? Gait Level Surface (20') 3 6.1 Change in Gait Speed 2 ?? Gait with Horizontal Head Turns 2 ?? Gait with Vertical Head Turns 2 ?? Gait and Pivot Turn 1 ?? Step Over Obstacle 2 ?? Gait with Narrow Base of Support 2 ?? Gait with Eyes Closed 1 ?? Ambulating Backwards 1 ?? Steps 1 ?? Functional Gait Assessment Total (0-30) 17 ?? Score of 22 or less = fall risk community dwelling older adults, Delisa and Chivo 2010 MCID 8 points, vestibular disorder, Ligia and Rolanda, 2010 ?? MDC acute and chronic stroke 4.2, Rolanda et al 2010 ? MCID 4 points for 60+ year old, Carlosto et al. 2014 ? Interventions completed today: initial evaluation and home exercise program including romberg stance with eyes opend and closed, staggered stance with eyes open and closed, and walking with both horizontal and vertical head turns with eyes opened. ? CLINICAL EVALUATION AND DIAGNOSIS: These findings are consistent with altered gaze stabilization, decreased use of vestibular input for mobility with Sensory Organization Test (SOT) scores on [employer] Smart Balance Master below normal in vestibular average. Self reported dysfunction related to dizziness or unsteadiness (DHI) is in the mild category. Malik Machado will benefit from outpatient physical therapy using both rehabilitative and compensatory approaches to maximize tolerance for activity and overall level of function. Specifically, he will benefit from facilitation of a comprehensivehome exercise program of functional exercises with appropriate intensity and repetition required topromote neuroplastic changes and compensatory strategy development in the STRAIGHT EDGER to aid in recovery offunctional mobility. ?? Clinical Presentation: The patient's clinical presentation is Evolving due to balance deficits, hx of migraines, and A-fib s/p ablations x2. . ?? Clinical decision making of moderate complexity using standardized patient assessment instrument and measurable assessment of functional outcome. ?? Functional Goals: Met Short Term Goals- 4 weeks ?? Patient will be independent with home exercise program. ?? Patient will be able to maintain standing in romberg with eyes closed x30 sec. ?? Walk with head turns and tilts without slowing or drift to improve balance looking around duringADL ?? Met Shelter Goals- 8 weeks ?? CDP average WNL to demonstrate postural stability WNL for movement during ADL ?? FGA score 22/30 to indicate improvement in sensory integration during balance challenges ?? G-Code: Mobility Status Modifier CURRENT CJ - At least 20 percent but less than 40 percent impaired, limited or restricted PROJECTED CI - At least 1 percent but less than 20 percent impaired, limited or restricted DISCHARGE Not Discharged Yet - Ongoing ?? G Code Rationale: This G-Code and these disability modifiers were selected as the primary therapy goal based upon the patient's evaluation including the following functional test(s) ABC - Activities-specific Balance Confidence Scale, DHI - Dizziness Handicapped Inventory and FGA - Functional Gait Assessment. Current ability measures, co-morbidities and clinical judgement were also used to select the disability modifier. Mr. Machado's current G-Code functional level is 40% impaired based upon the above objective measures. ?? PLAN: Continue physical therapy for Stretching, Therapeutic Exercise, Patient/Family Education, Home Exercise Program, Balance and Gait Training and Vestibular Interventions Frequency and duration: 1/week x 8 weeks, adding or tapering as appropriate based on clinical and functional progress ?? Home Exercise Program: 1. Romberg stance with eyes opened and closed. 2. Staggered stance with eyes opened and closed. 3. Ambulating with head turns horizontally and vertically. ?? Informed Consent: The patient consented to the physical therapy evaluation. The patient agrees to and understands the physical therapy treatment plan and goals. ?? Total Timed Code Treatment: Evaluation MODERATE Complexity (50718) Total Treatment time: 74 minutes ?? Marzena Montero, PT DPT [facility]- 2L ?? documented in this encounter Plan of Treatment Upcoming Encounters Date Type Department Care Team (Late st Contact Info) Description 08/18/2024 11:00 AM EDT Hospital Encounter [place] [address] Arrived 02/22/2025 1:30 PM EDT Appointment Hematology and Oncology at [place] [address] 02/22/2025 2:30 PM EDT Office Visit Hematology [place] [address] Ellis Childers MD [facility] DR [place] [address] Felicita Landa APRN [facility] [address] [place]AT[place] [address] Scheduled Referrals Name Type Priority Associated Diagnoses Orde r Schedule Referral to Physical Therapy Outpatient Referral Routine Vertigo Ordered: 02/24/2018 documented as of this encounter Visit Diagnoses Diagnosis Vertigo Dizziness and giddiness documented in this encounter Care Teams Sem Manager Relationship Specialty Start Date End Date Radha Mckeon MD [address] [place] [address] PCP - General 09/23/10 documented as of this encounter
--- OUTSIDE RECORDS SUMMARY | 2024-07-24 17:29 | XMS_ITS | Encounter Summary ---
[place] [address] Care Team Providers Care Sales Trainer Name Role Phone Radha Mckeon MD Primary Care Provider [phone] Encounter Details Date Type Department Care Team (Late st Contact Info) Description 04/11/2018 9:30 AM EDT Office Visit Audiology at [address] [address] Mariela Hernandez, NAFISA [facility] [place] [address] Dizziness Social History Tobacco Use Types Packs/Day [...] of this encounter Progress Notes * Mariela Hernandez, NAFISA - 04/11/2018 9:30 AM EDT AUDIOLOGY SECTION [place], [place] VIDEONYSTAGMOGRAPHY 04/11/2018 BACKGROUND Malik Machado, age 67 y.o., was referred for the present testing as part of a comprehensive dizziness evaluation by Elke Samuel APRN. He has been evaluated by ENT, Cardiology, vestibular PT and Neurology. History of migraine headaches and nasal congestion. An audiogram from December revealed normalhearing AU save for a 15 dB asymmetry L>R at 3000 Hz. He has had an MRI and CT. VIDEONYSTAGMOGRAPHY (VNG) RESULTS: Binocular horizontal and vertical recordings were obtained under infared oculography. Horizontal and vertical calibrations were normometric. There was no evidence of disconjugate eye movement. Malik Luevano was cooperative throughout the procedure and focused his attention on the distracter tasks given to him. Pre-VNG Bedside Exam Neck range of motion appeared within gross normal limits. Eye movements were grossly intact; there was no spontaneous nystagmus evidenced in room light. High frequency headshake: Normal Tests of Ocular Control: Tests of ocular control were normal. Normal saccade latency, velocity, and accuracy were observed. Smooth pursuit was essentially normal to the right and left. Optokinetic tracking (OPK) was normal and symmetrical to the right and left at 20??/sec and 40??/sec. Nystagmus testing/Provoked vertigo testing: No gaze or spontaneous nystagmus was recorded. During right modified sidelying Hallpike, 4??/second persistent ageotropic left beating nystagmus was present which increased to a 9??/second left beat upon sitting back up from modified Hallpike position. This increased nystagmus persisted for a minute while back in the upright position. Left modified Hallpike was negative. Supine: WNL Head right WNL Head left WNL Body right WNL Body left: 2??/second ageotropic right beating nystagmus Bithermal Caloric Testing: Results of bithermal (air) caloric irrigations were as follows: Right ear, warm: 14??/second Right ear, cool: 9??/second Left ear,warm: 10??/second Left ear, cool: 12??/second Unilateral weakness: 2% to the left Directional preponderance: 16% to the right No failure of fixation suppression was noted. NOTE: Wax noted in right ear canal which initially influenced caloric results. This was removed by ENT, resolving the artificial weakness on the right. IMPRESSIONS: Ageotropic horizontal leftbeating nystagmus with right Hallpike which continued and enhanced upon sitting back up from the hallpike position. It was persistent as the patient held the position and lasted over a minute after sitting back up. Testing of the peripheral vestibular systems did not reveal evidence of spontaneous, gaze, or head-shaking nystagmus. Caloric evoked nystagmus was fairly symmetrical in both ears, indicating normal functioning of the lateral semi-circular canals and superiorvestibular nerves. Ocular motor studies of pursuit and saccades which are considered sensitive to central vestibular pathway compromise were unremarkable. RECOMMENDATION Follow up with ENT, Cardiology and PT. This case was reviewed with vertigo team. Natalie Davies Clinical Director Of [facility] [phone] documented in this encounter Plan of Treatment Upcoming Encounters Date Type Department Care Team (Late st Contact Info) Description 08/18/2024 11:00 AM EDT Hospital Encounter Non-[place] [address] Arrived 02/22/2025 1:30 PM EDT Appointment Hematology [place] [address] 02/22/2025 2:30 PM EDT Office Visit Hematology and Oncology at [address] Ellis Childers MD [facility] DR HEMATOLOGY [place] [address] Felicita Landa APRN [facility] [place] [address] documented as of this encounter Visit Diagnoses Diagnosis Dizziness Dizziness and giddiness documented in this encounter Care Teams Sales Trainer Relationship Specialty Start Date End Date Radha Mckeon MD [address] [place] [address] PCP - General 09/23/10 documented as of this encounter
--- OUTSIDE RECORDS SUMMARY | 2024-07-24 17:29 | XMS_ITS | Encounter Summary ---
[place] [address] Care Team Providers Care Furniture Delivery Driver Name Role Phone Radha Mckeon MD Primary Care Provider [phone] Encounter Details Date Type Department Care Team (Late st Contact Info) Description 08/12/2018 Orders Only Cardiology at [address] [phone] Social History Tobacco Use Types Packs/Day Years [...] AM EDT Hospital Encounter Non-[place]vasive [place] [address] Arrived 02/22/2025 1:30 PM EDT Appointment Hematology [place] [address] 02/22/2025 2:30 PM EDT Office Visit [place]ematology [place] [address] Ellis Childers MD [facility] DR HEMATOLOGY [place] [address] Felicita Landa APRN [facility] HEMATOLOGY [place] [address] documented as of this encounter Procedures Procedure Name Priority Date/Time Associated Diagnosis Comments CARDIAC DEVICE CHECK - REMOTE Routine 08/12/2018 5:06 PM EDT documented in this encounter Results * Cardiac Device Check - Remote (08/12/2018 5:06 PM EDT) Date Time Interrogation Session [employer] Implantable Pulse Generator Glass Fitter Med[employer]onic IDCO Implantable Pulse Generator Model [id number] [employer]CO Implantable Pulse Generator Serial Number [id number] IDCO Type Interrogation Session Remote IDCO Implantable [...] IDCO Battery Status OK IDCO Episode Identifier 16 IDCO Episode Type Category Patient Activated IDCO Episode Date Time [id number] IDCO Atrial Tachy Statistic Date Time Start [id number] IDCO Atrial Tachy Statistic Date Time End IDCO Atrial Tachy Statistic AT/AF [place] Percent 0 % IDCO Episode Statistic Recent Count 0 IDCO Episode Statistic Recent Count 0 IDCO Episode Statistic Recent Count 0 IDCO Episode Statistic Recent Count 0 IDCO Episode Statistic Recent Count 1 IDCO Episode Statistic Type Category Patient Activated IDCO Episode Statistic Recent Count 0 IDCO Episode Statistic Type Category AT/AF IDCO Episode Statistic Recent Date Time Start [id number] IDCO Episode Statistic Recent Date Time End IDCO Episode Statistic Recent Date Time Start IDCO Episode Statistic Recent Date Time End [id number] IDCO Episode Statistic Recent Date Time Start [id number] IDCO Episode Statistic Recent Date Time End [id number] IDCO Episode Statistic Recent Date Time Start [id number] IDCO Episode Statistic Recent Date Time End [id number] IDCO Episode Statistic Recent Date Time Start [id number] IDCO Episode Statistic Recent Date Time End [id number] IDCO Episode Statistic Recent Date Time Start [id number] IDCO Episode Statistic Recent Date Time End [id number] IDCO Episode Statistic Total Count 0 IDCO Episode Statistic Total Count 3 IDCO Episode Statistic Total Count 0 IDCO Episode Statistic Total Count 0 IDCO Episode Statistic Total Count 13 IDCO Episode Statistic Type Category Patient Activated IDCO Episode Statistic Total Count 0 IDCO Episode Statistic Type Category AT/AF IDCO Episode Statistic Total Date Time Start [id number] IDCO Episode Statistic Total Date Time End [id number] IDCO Episode Statistic Total Date Time Start [id number] IDCO Episode Statistic Total Date Time End [id number] IDCO Episode Statistic Total Date Time Start [id number] IDCO Episode Statistic Total Date Time End [id number] IDCO Episode Statistic Total Date Time Start [id number] IDCO Episode Statistic Total Date Time End [id number] IDCO Episode Statistic Total Date Time Start [id number] IDCO Episode Statistic Total Date Time End [id number] IDCO Episode Statistic Total Date Time Start [id number] IDCO Episode Statistic Total Date Time End [id number] IDCO Anatomical Region Laterality Modality Other 08/12/2018 5:06 PM EDT Physician Cardiology IMPLANTABLE CARD IAC DEVICE documented in this encounter Visit Diagnoses Not on filedocumented in this encounter Care Teams Furniture Delivery Driver Relationship Specialty Start Date End Date Radha Mckeon MD [address] [place] [address] PCP - General 09/23/10 documented as of this encounter
--- OUTSIDE RECORDS SUMMARY | 2024-07-24 17:29 | XMS_ITS | Encounter Summary ---
Author Organization [facility] [place] [address] Care Team Providers Care Moss Bleacher Name Role Phone Radha Mckeon MD Primary Care Provider [phone] Encounter Details Date Type Department Care Team (Late st Contact Info) Description 11/30/2018 Orders [place] [address] [place] [facility] [place] [address] Status post right knee replacement Social History [...] AM EDT Hospital Encounter Non-Invasive [place] [address] Arrived 02/22/2025 1:30 PM EDT Appointment [place]ology [place] [address] 02/22/2025 2:30 PM EDT Office Visit [place]ology [place] [address] Ellis Childers MD [facility] DR [place] [address] Felicita Landa APRN [facility] DR [place] [address] documented as of this encounter Visit Diagnoses Diagnosis Status post right knee replacement documented in this encounter Care Teams Moss Bleacher Relationship Specialty Start Date End Date Radha Mckeon MD [address] [place] [address] PCP - General 09/23/10 documented as of this encounter
--- OUTSIDE RECORDS SUMMARY | 2024-07-24 17:29 | XMS_ITS | Encounter Summary ---
Author Organization Formerly [facility] [place] [address] Care Team Providers Care Lead Former Name Role Phone Radha Mckeon MD Primary Care Provider Encounter Details Date Type Department Care Team (Late st Contact Info) Description 04/11/2018 1:00 PM EDT Office [place] [address] Marzena Montero, PT Vertigo Social History Tobacco [...] of this encounter Progress Notes * Marzena Montero PT - 04/11/2018 1:00 PM EDT Outpatient Physical Therapy Follow Up Note Follow up visit for patient with the following Diagnosis and Pertinent Co-morbidities affecting Plan of Care: 1. Vertigo Primary Insurance: Payor: MEDICARE / Plan: MEDICARE PART A & B / Product Type: *No Product type* / Medicare Cert Period: 04/11/2018 - 06/22/2018 S: Pt reports a bad dizzy spell last night that lasted for possibly 2-3 mins, but was unable to describe what he was doing before this occurred. Just prior to our session he had an Audiology appointment and when asked about it he mentions that he wasn't really sure what was found, but that one of the ENT PAs cleaned his ears out. When asked, pt admits that he isn't really doing his balance exercises. O: Therex: Neuromuscular Re-Ed (62011) 13 min ?? Performed Doyle Laia Hallpike which were both negative for symptoms and nystagmus. Then tested horizontal canals Doyle, which were also negative. A: Pt. responded well to today's session. Unable to elicit symptoms or nystagmus during testing this session, though pt indicates that his eyes moved during the Audiology appointment prior to the PA cleaning his ears. Malik Machado will continue to benefit from skilled PT services for improved balance, strength, and decreased fall risk. P: Cont physical therapy for 1/week x 8??weeks, adding or??tapering as??appropriate??based on clinical and functional progress Home Exercise Program: 1. Romberg stance with eyes opened and closed. 2. Staggered stance with eyes opened and closed. ?? 3. Ambulating with head turns horizontally and vertically. ?? Current goals: Met Short Term Goals- 4 weeks ?Progressing Patient will be independent with home exercise program. ?Progressing Patient will be able to maintain standing in romberg with eyes closed x30 sec. ?Progressing Walk with head turns and tilts without slowing or drift to improve balance looking around during ADL ? Met Bottler Helper Goals- 8 weeks ? CDP average WNL to demonstrate postural stability WNL for movement during ADL ? FGA score / to indicate improvement in sensory integration during balance challenges ? Functional Reporting G-Codes: PT G-Codes 04/01/2018 03/21/2018 03/21/2018 Functional Limitation Mobility: Walking and moving around Mobility: Walking and moving around Mobility: Walking and moving around Mobility: Walking and Moving Around Current Status (G8978) CJ CJ CJ Mobility: Walking and Moving Around Goal Status (G8979) CI CI CI Total treatment time: 23 minutes Total timed code treatment: 13 minutes Marzena Montero, PT DPT [facility]- documented in this encounter Plan of Treatment Upcoming Encounters Date Type Department Care Team (Late st Contact Info) Description 08/18/2024 11:00 AM EDT Hospital Encounter [place] [address] Arrived 02/22/2025 1:30 PM EDT Appointment [place]ology [place] [address] 02/22/2025 2:30 PM EDT Office Visit [place]ematology [place] [address] Ellis Childers MD [facility] [address] HEMATOLOGY [place] [address] Felicita Landa APRN [facility] [address] HEMATOLOGY [place] [address] documented as of this encounter Visit Diagnoses Diagnosis Vertigo Dizziness and giddiness documented in this encounter Care Teams Lead Former Relationship Specialty Start Date End Date Radha Mckeon MD [address] [place] [address] PCP - General 09/23/10 documented as of this encounter
--- OUTSIDE RECORDS SUMMARY | 2024-07-24 17:29 | XMS_ITS | Encounter Summary ---
Author Organization [facility] Address [facility] [place] [address] Care Team Providers Care Saas Architect Name Role Phone Radha Mckeon MD Primary Care Provider Reason for Visit * Reason Onset Date Comments Other 04/14/2018 ILR issue Encounter Details Date Type Department Care Team (Late st Contact Info) Description 04/14/2018 Telephone Cardiology at [address] [address] Garrett Benson MD [facility] [address] Other (ILR issue) Social History Tobacco Use Types Packs/Day Years [...] encounter Miscellaneous Notes * Telephone Encounter - Kate Witt RN - 04/14/2018 4:45 PM EDT Spoke with Mr. Machado- he has not received a cord (has been working with [employer] on this) but it will not be here until next week. He has been having symptoms but he was updated that he should use the symptom activator to collect a longer EGM for review. He will send a remote when the cord arrives. Unfortunately he [place] too far away to come to clinic for a check. 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 Home in the next half hour [phone] Cell after 1:30, Thank you documented in this encounter Plan of Treatment Upcoming Encounters Date Type Department Care Team (Late st Contact Info) Description 08/18/2024 11:00 AM EDT Hospital Encounter Non-Invasive [place] [address] Arrived 02/22/2025 1:30 PM EDT Appointment H[place]ology [place] [phone] 02/22/2025 2:30 PM EDT Office Visit Hematology [place] [address] Ellis Childers MD [facility] [address] [place]AT[place] [address] Felicita Landa APRN [facility] [place] [address] documented as of this encounter Visit Diagnoses Not on filedocumented in this encounter Care Teams Saas Architect Relationship Specialty Start Date End Date Radha Mckeon MD [address] [place] [address] PCP - General 09/23/10 documented as of this encounter
--- OUTSIDE RECORDS SUMMARY | 2024-07-24 17:29 | XMS_ITS | Encounter Summary ---
Author Organization [facility] [place] [address] Care Team Providers Care Sdv Pilot/Navigator/Dds Operator Name Role Phone Radha Mckeon MD Primary Care Provider Encounter Details Date Type Department Care Team (Late st Contact Info) Description 04/20/2018 Orders Only Cardiology at [address] [phone] Social History Tobacco Use Types Packs/Day Years [...] as of this encounter Progress Notes * Sanford Byrd MD - 04/20/2018 11:59 PM EDT Cardiac Electrophysiology Cardiac Rhythm Device Remote Data Transmission Implanted Cardiac Rhythm Monitor Remote transmission of this patient's loop recorder data occurred April 19, 2018. Comments: Battery status good, implanted April 04, 2018 Underlying conducted sinus rhythm, normal rate range Detection threshold settings (confirmed as of April 19, 2018): Tachycardia: At least 16 beats at > 167/minute Bradycardia: At least 4 beats at < 30/minute Pause: At least 3 seconds Episodes (since April 04, 2018): Symptom 5 Tachycardia 0 Pause 3 Bradycardia 0 AT 0 AF 0 Total AT/AF burden: 0.0% Symptom (patient-triggered) episodes: April 18, 2018 @ 15:09: Episode ID#8 Symptom: Dizziness Sinus rhythm, rate range 50-60/minute. April 17, 2018 @ 13:52: Episode ID#7 Symptom: Dizziness Sinus rhythm, rate range 55-65/minute. April 15, 2018 @ 22:53: Episode ID#6 Symptom: Dizziness Sinus rhythm, rate range 50-60/minute. April 15, 2018 @ 19:57: Episode ID#5 Symptom: Dizziness Sinus rhythm, rate range 75-105/minute. April 15, 2018 @ 15:28: Episode ID#4 Symptom: Dizziness No signal for review. Dysrhythmias (auto-triggered) episodes: April 04, 2018 @ 09:29: Episode ID#3 Pause, occurred during implantation procedure. April 04, 2018 @ 09:29: Episode ID#2 Pause, occurred during implantation procedure. April 04, 2018 @ 09:12: Episode ID#1 Pause, occurred during implantation procedure. Conclusion: No significant dysrhythmias identified. Patient-triggered episodes x 5: As noted above. No significant auto-triggered episodes. __ Sanford Byrd MD, [facility] Cardiac Electrophysiology __ Cc: MD Sky Caba MD Mark Kiessling, PA ?? For more detailed pacemaker and lead specifics, and also for detailed interrogation data, please note the Orders Only hyperlink at the bottom of this electronic document, clicking on which exposes a Cardiac rhythm device - Remote Scheduled hyperlink; that secondary hyperlink provides access to all associated full disclosure documents (under the 'Linked Documents' section). documented in this encounter Plan of Treatment Upcoming Encounters Date Type Department Care Team (Late st Contact Info) Description 08/18/2024 11:00 AM EDT Hospital Encounter [place] [address] Arrived 02/22/2025 1:30 PM EDT Appointment Hematology [place] [address] 02/22/2025 2:30 PM EDT Office Visit Hematology [place] [phone] Ellis Childers MD [facility] [address] [place] [address] Felicita Landa APRN [facility] [place] [address] documented as of this encounter Procedures Procedure Name Priority Date/Time Associated Diagnosis Comments CARDIAC DEVICE CHECK - REMOTE Routine 04/20/2018 12:15 AM EDT documented in this encounter Results * (ABNORMAL) Cardiac Device Check - Remote (04/20/2018 12:15 AM EDT) Date Time Interrogation Session [id number] [employer] Implantable Pulse Generator Dental Director [employer] Implantable Pulse Generator Model [id number] [employer] Implantable Pulse Generator Serial Number [id number] [employer] Type Interrogation Session Remote [employer] Implantable [...] IDCO Battery Status OK IDCO Episode Identifier 3 IDCO Episode Date Time [id number] IDCO Episode Duration 3.91 s IDCO Episode Identifier 2 IDCO Episode Date Time [id number] IDCO Episode Duration 6.99 s IDCO Episode Identifier 1 IDCO Episode Date Time [id number] IDCO Episode Duration 655.35 s IDCO Episode Identifier 8 IDCO Episode Type Category Patient Activated IDCO Episode Date Time [id number] IDCO Episode Identifier 7 IDCO Episode Type Category Patient Activated IDCO Episode Date Time [id number] IDCO Episode Identifier 6 IDCO Episode Type Category Patient Activated IDCO Episode Date Time [id number] IDCO Episode Identifier 5 IDCO Episode Type Category Patient Activated IDCO Episode Date Time [id number] IDCO Episode Identifier 4 IDCO Episode Type Category Patient Activated IDCO Episode Date Time [id number] [employer]CO Atrial Tachy Statistic Date Time Start [id number] IDCO Atrial Tachy Statistic Date Time End IDCO Atrial Tachy Statistic AT/AF [place] Percent 0 % IDCO Episode Statistic Recent Count 0 IDCO Episode Statistic Recent Count 3 IDCO Episode Statistic Recent Count 0 IDCO Episode Statistic Recent Count 0 IDCO Episode Statistic Recent Count 5 IDCO Episode Statistic Type Category Patient Activated [...] IDCO Episode Statistic Recent Date Time Start [id number] IDCO Episode Statistic Recent Date Time End IDCO Episode Statistic Recent Date Time Start IDCO Episode Statistic Recent Date Time End IDCO Episode Statistic Recent Date Time Start [id number] IDCO Episode Statistic Recent Date Time End IDCO Episode Statistic Total Count 0 IDCO Episode Statistic Total Count 3 IDCO Episode Statistic Total Count 0 IDCO Episode Statistic Total Count 0 IDCO Episode Statistic Total Count 5 IDCO Episode Statistic Type Category Patient Activated IDCO Episode Statistic Total Count 0 IDCO Episode Statistic Type Category AT/AF IDCO Episode Statistic Total Date Time Start [id number] IDCO Episode Statistic Total Date Time End IDCO Episode Statistic Total Date Time Start IDCO Episode Statistic Total Date Time End IDCO Episode Statistic Total Date Time Start [id number] IDCO Episode Statistic Total Date Time End [id number] IDCO Episode Statistic Total Date Time Start [id number] IDCO Episode Statistic Total Date Time End IDCO Episode Statistic Total Date Time Start IDCO Episode Statistic Total Date Time End IDCO Episode Statistic Total Date Time Start IDCO Episode Statistic Total Date Time End IDCO Anatomical Region Laterality Modality Other 04/20/2018 12:1 5 AM EDT Physician Cardiology IMPLANTABLE CARD IAC DEVICE documented in this encounter Visit Diagnoses Not on filedocumented in this encounter Care Teams Sdv Pilot/Navigator/Dds Operator Relationship Specialty Start Date End Date Radha Mckeon MD [address] [place] [address] PCP - General 09/23/10 documented as of this encounter
--- OUTSIDE RECORDS SUMMARY | 2024-07-24 17:29 | XMS_ITS | Encounter Summary ---
Author Organization [facility] Address [facility] [place] [address] Care Team Providers Care Sports Physician Name Role Phone Radha Mckeon MD Primary Care Provider [phone] Encounter Details Date Type Department Care Team (Latest Contact Info) Description 04/04/2018 6:53 AM EDT - 04/04/2018 12:37 PM EDT Hospital Encounter [place] [address] Garrett Benson MD [facility] [place] [address] Discharge Disposition: Home Social History Tobacco Use [...] Sign Reading Time Taken Comments Blood Pressure 141/93 04/04/2018 11:00 AM EDT Pulse 58 04/04/2018 10:30 AM EDT Temperature 36.4 ??C (97.5 ??F) 04/04/2018 9:55 AM ED T Respiratory Rate 16 04/04/2018 11:0 0 AM EDT Oxygen Saturation 93% 04/04/2018 11: 00 AM EDT Inhaled Oxygen Concentration - - Weight 81.1 kg (178 lb 12.8 oz) 04/04/2018 8:15 AM EDT Height 182.9 cm (6') 04/04/2018 8:15 AM EDT Body Mass Index 24.25 04/04/2018 8:15 AM EDT documented in this encounter Discharge Instructions * Patient Instructions* Garrett Benson MD - 04/04/2018 9:52 AM EDT WOUND CARE FOR PATIENTS WITH PACEMAKERS AND ICD DEVICES Your wound will usually heal in 7-10 days. Your wound may be tender, it may appear slightly red andbumpy and there may be dry, crusty scabbing. These are all normal. Follow the instructions that follow to care for your wound. Either you or someone with you needs to look at the wound everyday. Inspect the wound for signs of infection which can be drainage, swelling, warmth or increased pain or redness. Notify your doctor if your temperature is 100 degrees F or higher. If you are concerned about an infection in your wound or if the edges of the wound separate, call your doctor. A needle should not be put into the wound area because this can damage the pacemaker lead. You may need to remind your health-care provider of this concern. The sutures will dissolve on their own. Do not scratch or rub the wound. Do not apply any creams, lotions or ointments on the wound until it is completely healed. You may cover the wound with gauze if it rubs on clothing and causes you discomfort. Do not shower for 48 hours after implant. While in the shower, turn your back to the water nozzle so you avoid direct water pressure on the wound. You should continue this for 7 - 10 days. You may take a tub bath, but keep the wound above the water level in the tub until the scab is gone. This usually takes 7 - 10 days. Avoid swimming until the same occurs. After 48 hours, you may wash the wound gently with soap and water. These discharge instructions have been reviewed and given to the patient. The patient verbalized understanding of this information. How to Care for Your Wound After It???s Treated With DERMABOND* Topical Skin Adhesive DERMABOND* Topical Skin Adhesive (2-octyl cyanoacrylate) is a sterile, liquid skin adhesive that holds wound edges together. The film will usually remain in place for 5 to 10 days, then naturally fall off your skin. The following will answer some of your questions and provide instructions for proper care for your wound while it is healing: CHECK WOUND APPEARANCE ??? Some swelling, redness, and pain are common with all wounds and normally will go away as the wound heals. If swelling, redness, or pain increases or if the wound feels warm to the touch, contact a doctor. Also contact a doctor if the wound edges reopen or separate. REPLACE BANDAGES ??? If your wound is bandaged, keep the bandage dry. ??? Replace the dressing daily until the adhesive film has fallen off or if the bandage should become wet, unless otherwise instructed by your physician. ??? When changing the dressing, do not place tape directly over the DERMABOND adhesive film, because removing the tape later may also remove the film. AVOID TOPICAL MEDICATIONS ??? Do not apply liquid or ointment medications or any other product to your wound while the DERMABOND adhesive film is in place. These may loosen the film before your wound is healed. KEEP WOUND DRY AND PROTECTED ??? You may occasionally and briefly wet your wound in the shower or bath. Do not soak or scrub your wound, do not swim, and avoid periods of heavy perspiration until the DERMABOND adhesive has naturally fallen off. After showering or bathing, gently blot your wound dry with a soft towel. If a protective dressing is being used, apply a fresh, dry bandage, being sure to keep the tape off the DERMABOND adhesive film. ??? Apply a clean, dry bandage over the wound if necessary to protect it. ??? Protect your wound from injury until the skin has had sufficient time to heal. ??? Do not scratch, rub, or pick at the DERMABOND adhesive film. This may loosen the film before your wound is healed. ??? Protect the wound from prolonged exposure to sunlight or tanning lamps while the film is in place. If you have any questions or concerns about this product, please consult your doctor. documented in this encounter Medications at Time of Discharge Medication Sig Dispensed Refills Start Date End Date acetaminophen (Tylenol) 500 mg tablet as needed. 01/16/2017 Triamcinolone Acetonide 0.025 % Lotion Apply topically [...] tablet Take 10 mg by mouth nightly. cephalexin (KEFLEX) 500 mg Tablet Take 500 mg by mouth Every 6 hours. 02/25/2018 12/13/2018 diclofenac (VOLTAREN) 1 % Gel Apply topically daily as needed. 11/17/2019 omeprazole (PRILOSEC) 20 mg Capsule, Delayed Release(E.C.) Take 20 mg by mouth 2 times daily. 10/07/2017 08/03/2023 meTOPROLOL succinate (TOPROL-XL) 100 mg Tablet Sustained Release 24 hrIndications:Paroxysma l atrial fibrillation Take 1.5 tablets by mouth daily. 135 tablet 12/17/2017 03/05/2019 gabapentin (NEURONTIN) 300 mg Capsule Take 300 mg by mouth nightly. 07/30/2017 01/02/2019 QUEtiapine (SEROQUEL) 25 mg Tablet 25 mg nightly. 07/12/2017 12/13/2018 apixaban (ELIQUIS) 5 mg Tablet Take 5 mg by mouth 2 times daily. 11/09/2019 ranitidine (ZANTAC) 150 mg Tablet Take 150 mg by mouth nightly. 03/18/2016 12/13/2018 SUMAtriptan (IMITREX) 20 mg/actuation [place], Non-Aerosol 1 spray by Nasal route as needed. For migraines 02/21/2016 01/02/2019 valACYclovir (VALTREX) 500 mg Tablet Take 500 [...] Pain 11/17/2019 documented as of this encounter H&P Notes * Garrett Benson MD - 04/04/2018 8:54 AM EDT Images from the original note were not included. Patient Name: Malik Machado Patient Age: 67 y.o. Birthdate: 1950 Admit date: 04/04/2018 Attending Physician: Garrett Benson MD Section of Cardiology/Cardiac Electrophysiology Clinical Cardiac Electrophysiology Patient ID Malik Machado 1950 [id number] Malik Machado is referred to the same day area for loop recorder implantation. C/c: lightheadedness History Mr. Machado is a 67 year old man with a history of paroxysmal atrial fibrillation and SVT s/p EP study X 2 and 2 atrial fibrillation ablations. He has recently had periodic lightheadedness and palpitations without an identifiable cause. EKG and Zio patch have been unremarkable, though these episodes have been difficult to capture. He is referred for loop recorder implantation to identify if theseepisodes represent an arrhythmia. He feels well. No chest pain, orthopnea, PND, leg swelling. Last seen in EP clinic in January. Problem List Patient Active Problem List Diagnosis ??? A-fib --Recurrent AF --S/P cardioversions x 3 (09/2005, 01/2006, 07/2007). --AF that has resolved spontaneously (12/2006, etc). 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 --Flecainide stopped after 4 doses due to [place]/QRS prolongation, 12/2007. --Started on dofetilide 500mcg BID [...] of periodic palpitations 2015. -- Admitted to [facility] 08/27/16, with A. fib at a rate of 112 bpm on metoprolol 100 mg daily/verapamil 180 mg daily; DCCV; metoprolol increased to 150 mg daily; started Eliquis. --Echo 11/2016: EF 58%. --Repeat afib ablation 11/23/2016: Veins still isolated; posterior wall isolation performed, stage IV. ??? Hypertension ??? Lightheadedness ??? Adverse drug effects --Amitriptyline (palpitations), Lipitor (liver enzyme abnormalities), flecainide ([place]/QRS prolongation noted 12/2007). ??? History of surgery --S/p pyloric stenosis surgery 1951, appendectomy 1969, right carpal tunnel surgery 1974, spinal fusion 1993 (redo back surgery 1995, 1998), umbilical hernia repair 1997, left carpal tunnel repair 2002, left elbow surgery 2004, right total knee replacement 2009. ??? Thrombocytopenia - chronic ??? S/P knee replacement SURGERY DATE: 01/14/2010 [...] Frequency Provider Last Rate Last Dose ??? sodium chloride 0.9 % flush 5 mL 5 mL Intravenous Q12H Diogo Robb PA ??? sodium chloride 0.9 % flush 5-20 mL 5-20 mL Intravenous Q1 Min PRN Diogo Robb PA ??? sodium chloride 0.9 % flush 5 mL 5 mL Intravenous Q12H Diogo Robb PA ??? sodium chloride 0.9 % flush 5-20 mL 5-20 mL Intravenous Q1 Min PRN Diogo Robb PA ??? ceFAZolin (ANCEF) 2g in dextrose 5% 100 mL 2 g Intravenous Once Diogo Robb PA Social History Social History Social History ??? Marital status: Single Spouse name: N/A ??? Number of children: N/A ??? Years of education: N/A Social History Main Topics ??? Smoking status: Former Smoker Packs/day: 2.00 Years: 16.00 Types: Cigarettes Quit date: 08/13/1983 ??? Smokeless tobacco: Never Used ??? Alcohol use No ??? Drug use: No ??? Sexual activity: Yes Other Topics Concern ??? Not on file Social History Narrative Family History Family History Problem Relation Age of Onset ??? Heart Disease Mother ??? Heart Disease Father ??? Cancer Brother 58 panceratic Exam Most Recent Vitals: 04/04/18 0815 BP: 147/80 Pulse: 63 Resp: 16 Temp: 36.6 ??C (97.9 ??F) SpO2: 99% Physical Exam ASA 1, Mallampati 2 GEN: patient appears well and in no apparent distress, alert and oriented. ENT: extraocular movements with full range of motion NECK: no carotid bruits, normal JVP CHEST: clear to auscultation with no wheeze, rhonchi or rales. Symmetric chest movement COR: S1S2, regular rate, normal rhythm, no discernible murmurs, rubs or gallops. ABDOMEN: soft, nontender, nondistended, normal bowel sounds EXTREMITIES: no edema, warm, well perfused,No cyanosis or clubbing. Normal range of motion and normal strength. NEUROLOGICAL: alert and oriented to person, place and time. I have personally reviewed all pertinent labs, cardiac rhythm monitors and imaging including zio patch, echo, EKG. Impression Mr. Machado has unexplained palpitations and a long history of supraventricular tachyarrhythmias. Proceed with loop recorder implant to characterize rhythm during episodes. Recommendations / Plan A) Loop recorder implantation Garrett Benson MD Cc: Radha Mckeon MD documented in this encounter Miscellaneous Notes * Brief Op Note - Garrett Benson MD - 04/04/2018 9:49 AM EDT Brief Operative Note Patient Name: Malik Machado : [id number] MR#: [id number] Case Date: 04/04/2018 Surgeon: Surgeon(s) and Role: * Garrett Benson MD - Primary Preoperative diagnosis: Heart palpitations [R00.2] Postoperative diagnosis: post loop recorder implantation Procedure(s) (LRB): ELECTROPHYSIOLOGY PROCEDURE (N/A) Anesthesia: Anesthesia type not filed in the log. Findings: n/a Complications: none Intake: 2 grams cefazolin IV Output: Estimated Blood Loss: 3 cc Drains: none Specimens removed during surgery: None Disposition: aroused from sedation, and taken to the recovery room in a stable condition Condition: doing well without problems Attestation: aGrrett Benson MD Case Date: 04/04/2018 I performed this procedure without the involvement of a resident. (Please see the Surgical Encounter Summary for any Implant and Specimen details pertinent to this patient.) documented in this encounter Plan of Treatment Upcoming Encounters Date Type Department Care Team (Late st Contact Info) Description 08/18/2024 11:00 AM EDT Hospital Encounter Non-[place] [address] Arrived 02/22/2025 1:30 PM EDT Appointment Hematology [place] [address] 02/22/2025 2:30 PM EDT Office Visit Hematology [place] [phone] Ellis Childers MD [facility] [address] HEMATOLOGY [place] [address] Felicita Landa APRN [facility] HEMATOLOGY [place] [address] documented as of this encounter Visit Diagnoses Not on filedocumented in this encounter Administered Medications Inactive Administered Medications - up to 3 most recent administrations Medication Order MAR Action Action Date Dose Rate Site BUpivacaine (PF) (MARCAINE) 0.5 % (5 mg/mL) injection 150 mg 150 mg (30 mL), Subcutaneous, ONCE, 1 dose, On Wed04/04/18 at 0930, EP (Intra-Procedure), Routine Given 04/04/2018 9:15 AM EDT 10 mLs ceFAZolin (ANCEF) 2g in dextrose 5% 100 mL 2 g, Intravenous, ONCE, 1 dose, On Wed04/04/18 at 0830, Administer over 30 Minutes, Redose every 3 hours if CrCl is greater than 20. Redose every 8 hours if CrCl is less than 20., Day of Surgery (Day of Procedure), Indication for (Active or Suspected): Prophylaxis New Bag 04/04/2018 9:15 AM EDT 2 g 200 mL/hr fentaNYL (PF) 50mcg/mL injection 25-50 mcg, Intravenous, EVERY 5 MIN PRN, Starting on Wed04/04/18 at 0914, Until Wed04/04/18 at 0945, Pain, As needed to induce or maintain moderate sedation per [facility] Moderate Sedation Policy for the duration of the EP procedure., As needed to induce or maintain moderate sedation per [facility] Moderate Sedation Policy for the duration of the EP procedure. For use in the electrophysiology lab (EP lab) only for procedural sedation with direct provider supervision and verbal order. RASS goal (-)2 to (-)3. Start at 25 mcg, Dose not to exceed 50 mcg/dose, 250 mcg/hr, or 20 mcg/kg per case., EP (Intra-Procedure), Routine Given 04/04/2018 9:25 AM EDT 25 mcg Given 04/04/2018 9:18 AM EDT 50 mcg lidocaine (XYLOCAINE) 10 mg/mL (1 %) injection 3 mg 3 mg (0.3 mL), Subcutaneous, ONCE PRN, 1 dose, Starting on Wed04/04/18 at 0813, Until Wed04/04/18 at 0830, for discomfort with PIV insertion, Day of Surgery (Day of Procedure), Routine Given 04/04/2018 8:30 AM EDT 3 mg lidocaine (XYLOCAINE) 10 mg/mL (1 %) injection 3 mg 3 mg (0.3 mL), Subcutaneous, ONCE PRN, 1 dose, Starting on Wed04/04/18 at 0813, Until Wed04/04/18 at 0830, for discomfort with PIV insertion, Day of Surgery (Day of Procedure), Routine Given 04/04/2018 8:30 AM EDT 3 mg lidocaine (XYLOCAINE) 20 mg/mL (2 %) injection 400 mg 400 mg (20 mL), Subcutaneous, ONCE, 1 dose, On Wed04/04/18 at 0930, EP (Intra-Procedure), Routine Given 04/04/2018 9:20 AM EDT 10 mLs midazolam (PF) (VERSED) 1 mg/mL multi-dose injection 0.5-1 mg 0.5-1 mg, Intravenous, EVERY 5 MIN PRN, Starting on Wed04/04/18 at 0914, Until Wed04/04/18 at 0945, Anxiety, As needed to induce or maintain moderate sedation per [facility] Moderate Sedation Policy for the duration of the EP procedure., As needed to induce or maintain moderate sedation per [facility] Moderate Sedation Policy for the duration of the EP procedure. For use in the electrophysiology lab (EP lab) only for procedural sedation with direct provider supervision and verbal order. RASS goal (-)2 to (-)3. Dose not to exceed 1 mg per dose, 5mg/hour, or 0.2mg/kg per case., EP (Intra-Procedure), Routine Given 04/04/2018 9:25 AM EDT 1 m g Given 04/04/2018 9:18 AM EDT 1 mg sodium chloride 0.9 % flush 5 mL 5 mL, Intravenous, EVERY 12 HOURS, First dose on Wed04/04/18 at 0830, Until Discontinued, Day of Surgery (Day of Procedure), Routine sodium chloride 0.9 % flush 5 mL 5 mL, Intravenous, EVERY 12 HOURS, First dose on Wed04/04/18 at 0830, Until Discontinued, Day of Surgery (Day of Procedure), Routine sodium chloride 0.9 % flush 5-20 mL 5-20 mL, Intravenous, EVERY 1 MIN PRN, Starting on Wed04/04/18 at 0813, Until Wed04/04/18 at 1549, flush, Flush pertains to all indwelling lines. Flush per protocol found in the job aid using the link provided on this medication record., Day of Surgery (Day of Procedure), Routine sodium chloride 0.9 % flush 5-20 mL 5-20 mL, Intravenous, EVERY 1 MIN PRN, Starting on Wed04/04/18 at 0813, Until Wed04/04/18 at 1549, flush, Flush pertains to all indwelling lines. Flush per protocol found in the job aid using the link provided on this medication record., Day of Surgery (Day of Procedure), Routine documented in this encounter Active and Recently Administered Medications Times are shown in EDT. Scheduled Medication Order 04/02/2018 04/03/2018 04/04/2018 BUpivacaine (PF) (MARCAINE) 0.5 % (5 mg/mL) injection 150 mg (COMPLETED) 150 mg (30 mL), Subcutaneous, ONCE, 1 dose, On Wed04/04/18 at 0930, EP (Intra-Procedure), Routine 0915 (Given - Provid er: Malik Tsang RN) ceFAZolin (ANCEF) 2g in dextrose 5% 100 mL (CANCELED) 2 g, Intravenous, ONCE, 1 dose, On Wed04/04/18 at 0830, Administer over 30 Minutes, Redose every 3 hours if CrCl is greater than 20. Redose every 8 hours if CrCl is less than 20., Day of Surgery (Day of Procedure), Indication for (Active or Suspected): Prophylaxis 0915 (New Bag - Prov ider: Malik Tsang RN)0945 (Due: Stopped - Provider: Malik Tsang RN) ceFAZolin (ANCEF) 2g in dextrose 5% 100 mL 2 g, Intravenous, ONCE, 1 dose, On Wed04/04/18 at 0830, Administer over 30 Minutes, Redose every 3 hours if CrCl is greater than 20. Redose every 8 hours if CrCl is less than 20., Day of Surgery (Day of Procedure), Indication for (Active or Suspected): Prophylaxis 829 (Due) lidocaine (XYLOCAINE) 20 mg/mL (2 %) injection 400 mg (COMPLETED) 400 mg (20 mL), Subcutaneous, ONCE, 1 dose, On Wed04/04/18 at 0930, EP (Intra-Procedure), Routine 919 (Given - Provid er: Malik Tsang RN - Comment: incision by ) neomycin-polymyxin B (NEOSPORIN) irrigation solution Irrigation, ONCE, On Wed04/04/18 at 0930, 1 dose, EP (Intra-Procedure) 929 (Due) sodium chloride 0.9 % flush 5 mL 5 mL, Intravenous, EVERY 12 HOURS, First dose on Wed04/04/18 at 0830, Until Discontinued, Day of Surgery (Day of Procedure), Routine 829 (Due) sodium chloride 0.9 % flush 5 mL 5 mL, Intravenous, EVERY 12 HOURS, First dose on Wed04/04/18 at 0830, Until Discontinued, Day of Surgery (Day of Procedure), Routine 829 (Due) PRN Medication Order 04/02/2018 04/03/2018 04/04/2018 fentaNYL (PF) 50mcg/mL injection (CANCELED) 25-50 mcg, Intravenous, EVERY 5 MIN PRN, Starting on Wed04/04/18 at 0914, Until Wed04/04/18 at 0945, Pain, As needed to induce or maintain moderate sedation per [facility] Moderate Sedation Policy for the duration of the EP procedure., As needed to induce or maintain moderate sedation per [facility] Moderate Sedation Policy for the duration of the EP procedure. For use in the electrophysiology lab (EP lab) only for procedural sedation with direct provider supervision and verbal order. RASS goal (-)2 to (-)3. Start at 25 mcg, Dose not to exceed 50 mcg/dose, 250 mcg/hr, or 20 mcg/kg per case., EP (Intra-Procedure), Routine 917 (Given - Provid er: Malik Tsang RN - Comment: for incision)924 (Given - Provider: Malik Tsang RN) lidocaine (XYLOCAINE) 10 mg/mL (1 %) injection 3 mg (COMPLETED) 3 mg (0.3 mL), Subcutaneous, ONCE PRN, 1 dose, Starting on Wed04/04/18 at 0813, Until Wed04/04/18 at 0830, for discomfort with PIV insertion, Day of Surgery (Day of Procedure), Routine 829 (Given - Provid er: Sandrita Correa RN) lidocaine (XYLOCAINE) 10 mg/mL (1 %) injection 3 mg (COMPLETED) 3 mg (0.3 mL), Subcutaneous, ONCE PRN, 1 dose, Starting on Wed04/04/18 at 0813, Until Wed04/04/18 at 0830, for discomfort with PIV insertion, Day of Surgery (Day of Procedure), Routine 829 (Given - Provid er: Sandrita Correa RN) midazolam (PF) (VERSED) 1 mg/mL multi-dose injection 0.5-1 mg (CANCELED) 0.5-1 mg, Intravenous, EVERY 5 MIN PRN, Starting on Wed04/04/18 at 0914, Until Wed04/04/18 at 0945, Anxiety, As needed to induce or maintain moderate sedation per [facility] Moderate Sedation Policy for the duration of the EP procedure., As needed to induce or maintain moderate sedation per [facility] Moderate Sedation Policy for the duration of the EP procedure. For use in the electrophysiology lab (EP lab) only for procedural sedation with direct provider supervision and verbal order. RASS goal (-)2 to (-)3. Dose not to exceed 1 mg per dose, 5mg/hour, or 0.2mg/kg per case., EP (Intra-Procedure), Routine 917 (Given - Provid er: Malik Tsang RN - Comment: for incision)924 (Given - Provider: Malik Tsang RN) sodium chloride 0.9 % flush 5-20 mL 5-20 mL, Intravenous, EVERY 1 MIN PRN, Starting on Wed04/04/18 at 0813, Until Wed04/04/18 at 1549, flush, Flush pertains to all indwelling lines. Flush per protocol found in the job aid using the link provided on this medication record., Day of Surgery (Day of Procedure), Routine sodium chloride 0.9 % flush 5-20 mL 5-20 mL, Intravenous, EVERY 1 MIN PRN, Starting on Wed04/04/18 at 0813, Until Wed04/04/18 at 1549, flush, Flush pertains to all indwelling lines. Flush per protocol found in the job aid using the link provided on this medication record., Day of Surgery (Day of Procedure), Routine documented in this encounter Care Teams Sports Physician Relationship Specialty Start Date End Date Radha Mckeon MD [address] [place] [address] PCP - General 09/23/10 documented as of this encounter
--- OUTSIDE RECORDS SUMMARY | 2024-07-24 17:29 | XMS_ITS | Encounter Summary ---
Author Organization [facility] [place] [address] Care Team Providers Care Community Development Specialist Name Role Phone Radha Mckeon MD Primary Care Provider [phone] Encounter Details Date Type Department Care Team (Late st Contact Info) Description 03/22/2018 Telephone Electrophysiology [place] [phone] Rosanna Pizano Social History Tobacco Use Types Packs/Day Years [...] encounter Miscellaneous Notes * Telephone Encounter - Rosanna Altamirano - 03/22/2018 12:53 PM EDT LVM for patient to call back and schedule ILR implant. documented in this encounter Plan of Treatment Upcoming Encounters Date Type Department Care Team (Late st Contact Info) Description 08/18/2024 11:00 AM EDT Hospital Encounter [place] [address] Arrived 02/22/2025 1:30 PM EDT Appointment Hematology and Oncology at [place] [address] 02/22/2025 2:30 PM EDT Office Visit Hematology [place] [address] Ellis Childers MD [facility] [address] [place] [address] Felicita Landa APRN [facility] [address] [place] [address] documented as of this encounter Visit Diagnoses Not on filedocumented in this encounter Care Teams Community Development Specialist Relationship Specialty Start Date End Date Radha Mckeon MD [address] [place] [address] PCP - General 09/23/10 documented as of this encounter
--- OUTSIDE RECORDS SUMMARY | 2024-07-24 17:29 | XMS_ITS | Encounter Summary ---
Author Organization [facility] Address [place] [address] Care Team Providers Care Telemarketing Manager Name Role Phone Radha Mckeon MD Primary Care Provider [phone] Encounter Details Date Type Department Care Team (Late st Contact Info) Description 04/04/2018 8:30 AM EDT - 04/04/2018 9:30 AM EDT Surgery [place] [phone] Garrett Benson MD [facility] [place] [address] ELECTROPHYSIOLOGY PROCEDURE Social History Tobacco Use Types [...] Sign Reading Time Taken Comments Blood Pressure 150/99 04/04/2018 9:30 AM EDT Pulse 64 04/04/2018 9:30 AM EDT Temperature 36.6 ??C (97.9 ??F) 04/04/2018 8:15 AM ED T Respiratory Rate 19 04/04/2018 9:30 AM EDT Oxygen Saturation 95% 04/04/2018 9:30 AM EDT Inhaled Oxygen Concentration - - [...] nightly. 03/18/2016 12/13/2018 SUMAtriptan (IMITREX) 20 mg/actuation [place], Non-Aerosol 1 spray by Nasal route as [...] as of this encounter H&P Notes * aGrrett Benson MD - 04/04/2018 8:54 AM EDT Images from the original note were not included. Patient Name: Malik Machado Patient Age: 67 y.o. Birthdate: 1950 Admit date: 04/04/2018 Attending Physician: Garrett Benson MD Section of Cardiology/Cardiac Electrophysiology Clinical Cardiac Electrophysiology Patient ID Malik Machado 1950 [id number] Malik Machado is referred to the same [...] --Flecainide stopped after 4 doses due to SC/QRS prolongation, 12/2007. --Started on dofetilide 500mcg BID [...] --Amitriptyline (palpitations), Lipitor (liver enzyme abnormalities), flecainide (SC/QRS prolongation noted 12/2007). ??? History of surgery --S/p pyloric stenosis surgery 195, appendectomy 1969, [...] IMPLANTS USED: All implants were from the NovaPlanner total knee system. 1. A size 4 [...] Operative Note Patient Name: Malik Machado : [id number] MR#: [id number] Case Date: 04/04/2018 Surgeon: Surgeon(s) and Role: [...] condition Condition: doing well without problems Attestation: Garrett Benson MD Case Date: 04/04/2018 I performed this procedure without the involvement of a resident. (Please see the Surgical Encounter Summary for any Implant and Specimen details pertinent to this patient.) documented in this encounter Plan of Treatment Upcoming Encounters Date Type Department Care Team (Late st Contact Info) Description 08/18/2024 11:00 AM EDT Hospital Encounter Non-[place] [address] Arrived 02/22/2025 1:30 PM EDT Appointment Hematology [place] [phone] 02/22/2025 2:30 PM EDT Office Visit Hematology and Oncology at [facility] [place] [phone] Ellis Childers MD [facility] DR [place] [address] Felicita Landa APRN [facility] [place] [address] documented as of this encounter Visit Diagnoses Diagnosis Heart palpitations Palpitations documented in this encounter Administered Medications Inactive [...] to induce or maintain moderate sedation per [facility] Moderate Sedation Policy for the duration of the EP procedure., As needed to induce or maintain moderate sedation per [facility] Moderate Sedation Policy for the duration of [...] to induce or maintain moderate sedation per [facility] Moderate Sedation Policy for the duration of the EP procedure., As needed to induce or maintain moderate sedation per [facility] Moderate Sedation Policy for the duration of [...] to induce or maintain moderate sedation per [facility] Moderate Sedation Policy for the duration of the EP procedure., As needed to induce or maintain moderate sedation per [facility] Moderate Sedation Policy for the duration of [...] to induce or maintain moderate sedation per [facility] Moderate Sedation Policy for the duration of the EP procedure., As needed to induce or maintain moderate sedation per [facility] Moderate Sedation Policy for the duration of the EP procedure. For use in the electrophysiology lab (EP lab) only for procedural sedation with direct provider supervision and verbal order. RASS goal (-)2 to (-)3. Dose not to exceed 1 mg per dose, 5mg/hour, or 0.2mg/kg per case., EP (Intra-Procedure), Routine 917 (Given - Provid er: Malik Tsang RN - Comment: for incision)09 (Given - Provider: Malik Tsang RN) sodium [...] Routine documented in this encounter Care Teams Telemarketing Manager Relationship Specialty Start Date End Date Radha Mckeon MD [address] [place] [address] PCP - General 09/23/10 documented as of this encounter
--- OUTSIDE RECORDS SUMMARY | 2024-07-24 17:29 | XMS_ITS | Encounter Summary ---
[place] [address] Care Team Providers Care Research Assistant Professor Name Role Phone Radha Mckeon MD Primary Care Provider [phone] Encounter Details Date Type Department Care Team (Late st Contact Info) Description 10/17/2018 Orders Only Cardiology at [address] [phone] Social History Tobacco Use Types Packs/Day Years [...] AM EDT Hospital Encounter Non-Invasive [place] [phone] Arrived 02/22/2025 1:30 PM EDT Appointment [place]ology [place] [phone] 02/22/2025 2:30 PM EDT Office Visit [place] [address] Ellis Childers MD [facility] [address] [place] [address] Felicita Landa APRN [facility] [place] [address] documented as of this encounter Procedures Procedure Name Priority Date/Time Associated Diagnosis Comments CARDIAC DEVICE CHECK - REMOTE Routine 10/17/2018 12:35 AM EST documented in this encounter Results * Cardiac Device Check - Remote (10/17/2018 12:35 AM EST) Date Time Interrogation Session [id number] [employer] Implantable Pulse Generator Visual Display Associate [employer] IDCO Implantable Pulse Generator Model [id number] [employer] Implantable Pulse Generator Serial Number [id number] [employer] Type Interrogation Session Remote [employer] Implantable Pulse Generator Type Implantable Diagnostic Monitor [employer] Implantable Pulse Generator Implant Date [id number] [employer] Anatomical Region Laterality Modality Other 10/17/2018 12:3 5 AM EST Physician Cardiology IMPLANTABLE CARD IAC DEVICE documented in this encounter Visit Diagnoses Not on filedocumented in this encounter Care Teams Research Assistant Professor Relationship Specialty Start Date End Date Radha Mckeon MD [address] [place] [address] PCP - General 09/23/10 documented as of this encounter
--- OUTSIDE RECORDS SUMMARY | 2024-07-24 17:29 | XMS_ITS | Encounter Summary ---
Author Organization [facility] [place] [address] Care Team Providers Care Degreaser Name Role Phone Radha Mckeon MD Primary Care Provider [phone] Encounter Details Date Type Department Care Team (Late st Contact Info) Description 02/24/2018 Telephone [place] [phone] Samantha Ruiz Social History Tobacco Use Types Packs/Day Years [...] encounter Miscellaneous Notes * Telephone Encounter - Samantha Ruiz - 02/24/2018 9:05 AM EDT Called to schedule from [facility] and PT evaluations recommended by Elke Samuel. Left message on primary number and department phone to call back to schedule. documented in this encounter Plan of Treatment Upcoming Encounters Date Type Department Care Team (Late st Contact Info) Description 08/18/2024 11:00 AM EDT Hospital Encounter Non-[place] [address] Arrived 02/22/2025 1:30 PM EDT Appointment H[place]ology [place] [phone] 02/22/2025 2:30 PM EDT Office Visit [place]ematology [place] [phone] Ellis Childers MD [facility] [place] [address] Felicita Landa APRN [facility] [place] [address] documented as of this encounter Visit Diagnoses Not on filedocumented in this encounter Care Teams Degreaser Relationship Specialty Start Date End Date Radha Mckeon MD [address] [place] [address] PCP - General 09/23/10 documented as of this encounter
--- OUTSIDE RECORDS SUMMARY | 2024-07-24 17:29 | XMS_ITS | Encounter Summary ---
Author Organization [place] [address] Care Team Providers Care Power Plant Operator Apprentice Name Role Phone Radha Mckeon MD Primary Care Provider Reason for Referral * Consultation (Routine) - Closed Specialty Diagnoses / Procedures Referred By Becki guillory Referred To Contact Orthopaedics Diagnoses Lumbar radiculopathy/ ?imaging [address] PA [facility] [place] [address] [facility] [address] [address] Referral ID Status Reason Start Date Expiration Date V isits Requested Visits Authorized [id number] Closed Consult, Test & Treat 12/13/2018 12/13/2019 1 1 Reason for Visit * Reason Comments Follow-up right TKA 01/14/10 Encounter Details Date Type Department Care Team (Late st Contact Info) Description 12/13/2018 2:20 PM EST Office [place] [phone] [facility] [place] [address] Chronic bilateral low back pain without sciatica (Primary Dx); Status post right knee replacement Social History [...] Sign Reading Time Taken Comments Blood Pressure 146/83 12/13/2018 2:15 PM EST Pulse 54 12/13/2018 2:15 PM EST Temperature - - Respiratory Rate - - Oxygen Saturation - - Inhaled Oxygen Concentration - - Weight 77.1 kg (169 lb 14.4 oz) 12/13/2018 2:15 PM EST measured Height - - Body Mass Index 23.04 04/04/2018 8:15 AM EDT documented in this encounter Progress Notes * [address] PA - 12/13/2018 2:20 PM EST Arthroplasty/Orthopaedic History: 1. Right TKA. Dr. Mi. 01/14/2010. HPI: Malik Machado is a very pleasant 68 y.o. year-old male and is now 9 year post right total knee replacement The patient has been doing overall well, as he is functional with his right knee, but suffers from continued back pain, which travels into his knee, and into his toes, specifically both of his toes. He explains in the past, Dr. Mi reviewed with him it isl ikely due to his back, OA, impingement causing radicular symptoms. The patient is not having any pain.. No fevers, chills, nausea, vomiting, or symptoms of infection. Malik has been ambulating with no assistive device. and working with PT. ROS: Denies: fever, chills, night sweats, nausea, or vomiting BP 146/83 Pulse 54 Wt 77.1 kg (169 lb 14.4 oz) Comment: measured BMI 23.04 kg/m?? Physical Exam: Well-appearing male in no [...] Normal Distal Sensory: Normal Quadriceps Strength: 5 Positive SLR, with reproduction of back pain into his knee. X-RAYS: Multiple radiographic views were obtained at my request and reviewed with the patient. X-rays show a well-placed prosthesis with no evidence of fracture, subsidence, loosening, or periprosthetic complication. No evidence of interval change or complication. No evidence of loosening. Negativebone scan from 2012. There are stable lucencies medially and laterally. Questionnaire Responses: [facility] Surgical Postop Visit 12/13/2018 PROMIS-10 General Health Very Good PROMIS-10 Quality of Life Very Good PROMIS-10 Physical Health Very Good PROMIS-10 Mental Health Very Good PROMIS-10 Social Activity Excellent PROMIS-10 Everyday Activities Mostly PROMIS-10 Pain 7 PROMIS-10 Fatigue Mild PROMIS-10 Social Roles Good PROMIS-10 Anxious or Depressed Rarely PROMIS PHYSICAL HEALTH SCORE 44.9 PROMIS MENTAL HEALTH SCORE 56 KOOS JR Scores 44.91 Problems with surgical incision/wound after surgery Yes Problems with incision Pain Prescribed antibiotics No Caregiver after your surgical incision problem Yourself Gone to ER since knee surgery No Admitted to hospital since recent ortho surgery No Additional surgery on same body part No TKA Grade 7 Pain in other KNEE Severe Back pain at this moment Fairly severe Satisfaction with Treatment Somewhat satisfied Choose Same Treatment Again Probably yes Orthopeadics [facility] Response 12/13/2018 KOOS JR Scores [address] [facility] Response 12/13/2018 KOOS JR Scores 44.91 ASSESSMENT/PLAN: Mr. Machado is a 68 y.o. year old male status post right total knee replacement. Postoperative course complicated by continued pain, from his back into his knee. Continue weightbearing as tolerated and working on range of motion. We will see him back in 5 years for repeat examination. X-rays will be needed at that time. Patient may return to normal activities as his pain and function allow. We reviewed his radiographs. We see no evidence of loosening, subsidence, failure of his right total knee. He is a negative bone scan back in 2013. He does have pain that travels through his knee, I think this does warrant labs. I recommend a CBC, ESR, CRP. If these are elevated, above 20, I recommend aspiration. They are negative, he is a negative bone scan and infectious workup and I would recommend referral to the spine center. His symptoms radiate from his back into his knee, and into his big toe. He has had surgery in his back before, explains his symptoms feel quite similar. I placed a referral to the spine center which she can complete at his leisure. I will call him with the resultsif they are elevated. We discussed the appropriate precautions surrounding dental [...] All questions were answered. Signed: ANDREE DURAN 12/13/2018 documented in this encounter Plan of Treatment Upcoming Encounters Date Type Department Care Team (Late st Contact Info) Description 08/18/2024 11:00 AM EDT Hospital Encounter Non-[place] [address] Arrived 02/22/2025 1:30 PM EDT Appointment Hematology [place] [address] 02/22/2025 2:30 PM EDT Office Visit Hematology [place] [phone] Ellis Childers MD [facility] DR [place] [address] Felicita Landa APRN [facility] [address] [place] [address] Scheduled Referrals Name Type Priority Associated Diagnoses Orde r Schedule Referral to Spine Center Outpatient Referral Routine Chronic bilateral low back pain without sciatica Ordered: 12/13/2018 documented as of this encounter Procedures Procedure Name Priority Date/Time Associated Diagnosis Comments CRP, ACUTE INFLAMMATION STAT 12/13/2018 3:15 PM EST Status post right knee replacement HEMOGRAM STAT 12/13/2018 3:15 PM EST Status post right knee replacement DIFFERENTIAL, AUTOMATED STAT 12/13/2018 3:15 PM EST Status post right knee replacement SEDIMENTATION RATE STAT 12/13/2018 3: 15 PM EST Status post right knee replacement CBC (WITH DIFF) STAT 12/13/2018 3:15 PM EST Status post right knee replacement documented in this encounter Results * Differential, Automated (12/13/2018 3:15 PM EST) Neutrophil % 65.2 % [facility] Neutrophil Absolute 3.70 1.70 - 6.10 x10(3)/[facility] Lymph % 17.7 % [facility] Lymphocytes Abs 1.0 0.9 - 3.2 x10(3)/[facility] Monocyte % 14.0 % [facility] Monocyte Abs 0.8 0.3 - 0.9 x10(3)/[facility] Eos % 2.5 % [facility] Eosinophils Abs 0.1 0.0 - 0.4 x10(3)/[facility] Basophil % 0.4 % [facility] Baso Absolute 0.0 0.0 - 0.1 x10(3)/[facility] Immature Gran % 0.20 % [facility] Comment: Immature granulocytes(IG's)percentage and absolute count will include metamyelocytes, myelocytes, and promyelocytes. Blood smears from CBCs yielding IG's will be scanned manually for concordance. If this scan disagrees with the automated IG or if promyelocytes are noted, a manual differential will be performed. Immature Gran Absolute 0.01 0.00 - 0.04 x10(3)/[facility] Blood specimen (specimen) 12/13/2018 3:15 PM EST 12/13/2018 3:31 PM EST Narrative Resulting Agency Comment Spec In Lab [facility] ORDERABLE S [facility] [place] [address] * (ABNORMAL) Hemogram (12/13/2018 3:15 PM EST) White Blood Cell 5.7 4.0 - 9.5 x10(3)/mc L [facility] Red Blood Cell 4.46(L) 4.58 - 5.54 x10(6)/[facility] Hemoglobin 14.0 13.7 - 16.5 gm/dL [facility] Hematocrit 41.7 40.5 - 48.5 % [facility] Mean Cell Volume 93.5(H) 82.9 - 93.1 [facility] Mean Cell Hemoglobin 31.4 27.5 - 32.1 pg [facility] Mean Cell Hemoglobin Concentration 33.6 32.0 - 35.7 gm/dL [facility] Platelet 100(L) 145 - 357 x10(3)/[facility] RDW Standard Deviation 40.7 36.0 - 45.0 [facility] RDW coefficient of variation 11.9 11.4 - 13.8 % [facility] Mean Platelet Volume 12.5 7.6 - 12.9 [facility] NRBC% auto 0.0 % [facility] NRBC Absolute 0.000 0.000 - 0.000 x10(3)/ L [facility] Blood specimen (specimen) 12/13/2018 3:15 PM EST 12/13/2018 3:31 PM EST Narrative Resulting Agency Comment Spec In Lab [facility]EMAT[facility] ORDERABLE S Performing Organization Address [facility] [employer] de Phone Number [facility] [place] [place] [address] * (ABNORMAL) Sedimentation rate (12/13/2018 3:15 PM EST) Sedimentation Rate Automated 38(H) 0 - 15 mm/hr [facility] Blood specimen (specimen) 12/13/2018 3:15 PM EST 12/13/2018 3:31 PM EST Narrative Resulting Agency Comment Spec In Lab Andrei Weathers MD HEMATOLOGY ORDERABLE S Performing Organization Address [facility] de Phone Number [facility] [place] [address] * CRP, acute inflammation (12/13/2018 3:15 PM EST) C-Reactive Protein 0.8 <=4.9 mg/L [facility] Blood specimen (specimen) 12/13/2018 3:15 PM EST 12/13/2018 3:31 PM EST Narrative Resulting Agency Comment Spec In Lab Andrei Weathers MD CHEMISTRY ORDERABLES Performing Organization Address [facility] Co de Phone Number [facility] [place] [address] documented in this encounter Visit Diagnoses Diagnosis Chronic bilateral low back pain without sciatica- Primary Status post right knee replacement documented in this encounter Care Teams Power Plant Operator Apprentice Relationship Specialty Start Date End Date Radha Mckeon MD [address] [place] [address] PCP - General 09/23/10 documented as of this encounter
--- OUTSIDE RECORDS SUMMARY | 2024-07-24 17:29 | XMS_ITS | Encounter Summary ---
Author Organization [facility] [place] [address] Care Team Providers Care [facility]om[facility] Nurse Practitioner Name Role Phone Radha Mckeon MD Primary Care Provider [phone] Encounter Details Date Type Department Care Team (Late st Contact Info) Description 05/27/2018 Telephone Cardiology at [address] [phone] Marissa Hutchison RN Social History Tobacco Use Types Packs/Day [...] Telephone Encounter - Marissa Hutchison RN - 05/27/2018 5:07 PM EDT I called to ask his symptoms and told him there was nothing Obvious documented in this encounter Plan of Treatment Upcoming Encounters Date Type Department Care Team (Late st Contact Info) Description 08/18/2024 11:00 AM EDT Hospital Encounter Non-[place] [address] Arrived 02/22/2025 1:30 PM EDT Appointment Hematology [place] [address] 02/22/2025 2:30 PM EDT Office Visit Hematology [place] [phone] Ellis Childers MD [facility] [address] [place] [address] Felicita Landa APRN [facility] [address] [place] [address] documented as of this encounter Visit Diagnoses Not on filedocumented in this encounter Care Teams [facility]omens [facility] Nurse Practitioner Relationship Specialty Start Date End Date Radha Mckeon MD [address] [place] [address] PCP - General 09/23/10 documented as of this encounter
--- OUTSIDE RECORDS SUMMARY | 2024-07-24 17:29 | XMS_ITS | Encounter Summary ---
Author Organization [facility] Address [facility] [place] [address] Care Team Providers Care Shape Hand Name Role Phone Radha Mckeon MD Primary Care Provider [phone] Encounter Details Date Type Department Care Team (Latest Contact Info) Description 12/13/2018 1:23 PM EST - 12/13/2018 11:59 PM [facility] Hospital Encounter XRay at [address] [place] [address] Sukhjinder Jauregui MD [facility] [place] [address] Status post right knee replacement Discharge Disposition: [...] 300 mg by mouth nightly. 07/30/2017 01/02/2019 apixaban (ELIQUIS) 5 mg Tablet Take 5 mg by mouth 2 times daily. 11/09/2019 SUMAtriptan (IMITREX) 20 mg/actuation [place], Non-Aerosol 1 spray by Nasal route as [...] AM EDT Hospital Encounter [place] [address] Arrived 02/22/2025 1:30 PM EDT Appointment Hematology [place] [address] 02/22/2025 2:30 PM EDT Office Visit Hematology [place] [address] Ellis Childers MD [facility] [address] [place] [address] Felicita Landa APRN [facility] [address] [place] [address] documented as of this encounter Procedures Procedure Name Priority Date/Time Associated Diagnosis Comments XR KNEE AP & LAT RIGHT Routine 12/13/2018 1:38 PM EST Status post right knee replacement documented in this encounter Results * XR Knee 1-2 Views Right (Generic) (12/13/2018 1:38 PM EST) Anatomical Region Laterality Modality Knee Right Digital Radiogra phy Impressions 12/13/2018 3:03 PM EST Right total knee arthroplasty without evidence of complication. I have personally reviewed the image(s) and the residents interpretation and agree with the findings, Sierra Isidro at 12/13/2018 3:03 PM Thank you for letting us participate in the care of this patient. For questions regarding this report, please contact the number below. ? Narrative 12/13/2018 3:03 PM EST EXAMINATION: XR KNEE 1-2 VIEWS RIGHT (GENERIC) CLINICAL HISTORY: SP R TKA 2009 BERNINI TECHNIQUE: 2 views RIGHT knee COMPARISON: Right knee radiographs 12/24/2016 through 02/20/2010 FINDINGS: Patient is status post right total knee arthroplasty, unchanged in position. Unchanged 9 mm ossific density projects in the posterior joint line. No new periprosthetic lucency or evidence of fracture. Procedure Note Sierra Isidro MD - 12/13/2018 EXAMINATION: XR KNEE 1-2 VIEWS RIGHT (GENERIC) CLINICAL HISTORY: SP R TKA 2009 BERNINI TECHNIQUE: 2 views RIGHT knee COMPARISON: Right knee radiographs 12/24/2016 through 02/20/2010 FINDINGS: Patient is status post right total knee arthroplasty, unchanged inposition. Unchanged 9 mm ossific density projects in the posterior joint line. Nonew periprosthetic lucency or evidence of fracture. IMPRESSION Right total knee arthroplasty without evidence of complication. I have personally reviewed the image(s) and the residents interpretationand agree with the findings, Sierra Isidro at 12/13/2018 3:03 PM Thank you for letting us participate in the care of this patient. Forquestions regarding this report, please contact the number below. Sukhjinder Jauregui MD IMG DX ORDERABLES documented in this encounter Visit Diagnoses Diagnosis Status post right knee replacement documented in this encounter Care Teams Shape Hand Relationship Specialty Start Date End Date Radha Mckeon MD [address] [place] [address] PCP - General 09/23/10 documented as of this encounter
--- OUTSIDE RECORDS SUMMARY | 2024-07-24 17:29 | XMS_ITS | Encounter Summary ---
Author Organization [facility] [place] [address] Care Team Providers Care Manager Retail Name Role Phone Radha Mckeon MD Primary Care Provider Encounter Details Date Type Department Care Team (Late st Contact Info) Description 12/21/2018 Telephone Cardiology at [address] [address] Malia Tsai RN Social History [...] Telephone Encounter - Malia Tsai RN - 12/22/2018 11:20 AM EST Attempted to call pt today for update on symptoms Unable to reach pt on numbers listed. LVM to return our call as soon as able * Telephone Encounter - Malia Tsai RN - 12/21/2018 5:22 PM EST Received message from scheduling department secretary today at 5 PM regarding symptoms for pt. Made TC to pt regarding episodes of lightheadedness/pre-syncope & pain in arm. Attempted to reach pt on both numbers listed on file. Spoke with Marguerite, pt's significant other. Pt was not available at the moment. Notified Marguerite that if pt is experiencing these symptoms he should report to nearest ED for further testing (EKG, labs, etc.) Marguerite reports that pt has had these symptoms for months and that he will probably not want to go to the ED (nearest is [facility]) I reinforced importance of being evaluated in ED & that he should be driven to the hospital/call 911 for ambulance rather than drive himself. Marguerite was agreeable and verbalized understanding. She will relay the message to him when he returns. I will call them tomorrow for update. They have OV scheduled w/ Kike Robb for 12/28/18 * Telephone Encounter - Malia Tsai RN - 12/21/2018 5:21 PM EST ----- Message from Shirin Pendleton sent at 12/21/2018 5:01 PM EST ----- Patient called and said he has been having some episodes of light headedness where he thinks he maypass out and some pain in his arm. He would like a call from Diogo when possible. I scheduled him inyour next , next Wednesday. [facility]- [phone] Juoj-[phone] Shirin Morris documented in this encounter Plan of Treatment Upcoming Encounters Date Type Department Care Team (Late st Contact Info) Description 08/18/2024 11:00 AM EDT Hospital Encounter Non-Invasive [place] [address] Arrived 02/22/2025 1:30 PM EDT Appointment Hematology [place] [address] 02/22/2025 2:30 PM EDT Office Visit Hematology [place] [address] Ellis Childers MD [facility] DR HEMATOLOGY [place] [address] Felicita Landa APRN [facility] DR HEMATOLOGY [place] [address] documented as of this encounter Visit Diagnoses Not on filedocumented in this encounter Care Teams Manager Retail Relationship Specialty Start Date End Date Radha Mckeon MD [address] [place] [address] PCP - General 09/23/10 documented as of this encounter
--- OUTSIDE RECORDS SUMMARY | 2024-07-24 17:29 | XMS_ITS | Encounter Summary ---
Author Organization [facility] [place] [address] Care Team Providers Care Teletype Technician Name Role Phone Radha Mckeon MD Primary Care Provider [phone] Reason for Visit * Reason Comments Pain Management Back Pain Encounter Details Date Type Department Care Team (Late st Contact Info) Description 02/28/2018 2:30 PM EDT Office Visit [place] [address] Christiano Ulloa MD [facility] [place] [address] Chronic bilateral low back pain, with sciatica presence unspecified Social History Tobacco Use Types Packs/Day Years [...] Sign Reading Time Taken Comments Blood Pressure 126/89 02/28/2018 2:50 PM EDT Pulse 59 02/28/2018 2:50 PM EDT Temperature - - Respiratory Rate - - Oxygen Saturation 100% 02/28/2018 2:50 PM EDT Inhaled Oxygen Concentration - - Weight 83 kg (183 lb) 02/28/2018 2:50 PM EDT Height 182.9 cm (6') 02/28/2018 2:50 PM EDT Body Mass Index 24.82 02/28/2018 2:50 PM EDT documented in this encounter Progress Notes * Christiano Ulloa MD - 02/28/2018 2:30 PM EDT [facility] Initial Consultation Note DOS: 02/28/18 : 1950 Malik Machado is a 67 y.o. year old male with a PMH including arachnoiditis who presents to the pain clinic today at the referral from Zenaida Orta APRN of [facility]: Chief Complaint Patient presents with ??? Pain Management ??? Back Pain HPI: Malik Machado prefers to be called Malik. He is alone. He describes chronic pain in his low back and lower extremities. He had myelograms and identified arachnoiditis previously. He still lives in pain since 1 year after he injured his spine. 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 His spine hurts when standing. It is aching sharp pain. ROS: Constitutional: No unintentional weight loss or gain, fevers, chills, or night sweats. HENT: No recent hearing changes. No difficulty swallowing. Eyes: No recent vision changes. Respiratory: No cough or shortness of breath. Cardiovascular: No chest pain or syncope. GI: No diarrhea, nausea, vomiting, or constipation. : No dysuria, hesitancy, or urgency. No incontinence. Musculoskeletal: Weakness Skin: No rashes or lesions. Neurologic: No numbness/tingling. No difficulty with balance. Psychiatric: Mood ok. No SI/HI. Sleep is poor. Heme/Lymph/Imm: No easy bleeding or brusing. PMH/PSH: Patient Active Problem List Diagnosis Code ??? Chronic back pain, causing disability M54.9, G89.29 ??? A-fib I48.91 ??? Hypertension I10 ??? 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 S/P knee replacement Z96.659 ??? Thrombocytopenia - chronic D69.6 ??? Adverse drug effects T88.7XXA ??? History of surgery Z98.890 ??? Lightheadedness R42 Past Medical History: Diagnosis Date ??? Chronic back pain greater than 3 months duration ??? Migraine ??? Thrombocytopenia - chronic 12/16/2012 [...] / RIGHT/ROTATING PLATFORM CURVED Procedure Date: 01/14/2010 FAMILY HISTORY: Family History Problem Relation Age of Onset ??? Heart Disease Mother ??? Heart Disease Father ??? Cancer Brother 58 panceratic SOCIAL HISTORY: Social History Social History ??? Marital status: Single Spouse name: N/A ??? Number of children: N/A ??? Years of education: N/A Occupational History ??? Not on file. Social History Main Topics ??? Smoking status: Former Smoker Packs/day: 2.00 Years: 16.00 Types: Cigarettes Quit date: 08/13/1983 ??? Smokeless tobacco: Never Used ??? Alcohol use No ??? Drug use: No ??? Sexual activity: Yes Other Topics Concern ??? Not on file Social History Narrative FUNCTIONAL STATUS: Independent in all ADLs. MEDICATIONS: Current Outpatient Prescriptions: ??? cephalexin (KEFLEX) 500 mg Tablet, Take 500 mg by mouth Every 6 hours., Disp: , Rfl: ??? diclofenac (VOLTAREN) 1 % Gel, Apply topically daily as needed., Disp: , Rfl: ??? omeprazole (PRILOSEC) 20 mg Capsule, Delayed Release(E.C.), 20 mg 2 times daily., Disp: , Rfl: ??? BOTOX 200 unit Recon Soln, Inject 200 Units as directed Q 3 Months., Disp: , Rfl: ??? meTOPROLOL succinate (TOPROL-XL) 100 mg Tablet Sustained Release 24 hr, Take 1.5 tablets by mouth daily., Disp: 135 tablet, Rfl: PRN ??? gabapentin (NEURONTIN) 300 mg Capsule, Take 300 mg by mouth nightly., Disp: , Rfl: ??? QUEtiapine (SEROQUEL) 25 mg Tablet, 25 mg nightly., Disp: , Rfl: ??? verapamil (CALAN-SR) 120 mg Tablet Sustained Release, Take 1 tablet by mouth daily., Disp: 90 tablet, Rfl: 3 ??? levothyroxine (SYNTHROID) 100 mcg Tablet, Take 100 mcg by mouth daily., Disp: , Rfl: ??? apixaban (ELIQUIS) 5 mg Tablet, Take 5 mg by mouth 2 times daily., Disp: , Rfl: ??? ranitidine (ZANTAC) 150 mg Tablet, Take 150 mg by mouth nightly., Disp: , Rfl: ??? SUMAtriptan (IMITREX) 20 mg/actuation [place], Non-Aerosol, 1 spray by Nasal route as needed. Formigraines, Disp: , Rfl: ??? valACYclovir (VALTREX) 500 mg Tablet, Take 500 mg by mouth daily., Disp: , Rfl: ??? oxyCODONE (ROXICODONE) 15 mg Tablet, Take 15 mg by mouth as needed for Pain., Disp: , Rfl: ??? MULTIVITAMIN W-MINERALS/LUTEIN (CENTRUM SILVER ORAL), Take 1 tablet by mouth., Disp: , Rfl: ??? [place]-3 Fatty Acids-Vitamin E (FISH OIL) 1,000 mg Cap, Take 2,000 mg by mouth daily., Disp: , Rfl: ??? acetaminophen (TYLENOL) 500 mg tablet, Take 1,000 mg by mouth as needed. Indications: Headache Disorder, Pain, Disp: , Rfl: ??? baclofen (LIORESAL) 10 mg tablet, Take 10 mg by mouth nightly as needed., Disp: , Rfl: ??? simvastatin (ZOCOR) 10 mg tablet, Take 10 mg by mouth nightly., Disp: , Rfl: ??? Triamcinolone Acetonide 0.025 % Lotion, Apply topically as needed., Disp: , Rfl: PDMP report checked and no inconsistencies are noted. ALLERGIES: Allergies Allergen Reactions ??? Amitriptyline Hcl Palpitations PHYSICAL EXAM: General: Patient is seated comfortably in NAD, well-groomed HEENT: Head atraumatic, extraocular movements intact Respiratory: Breathing comfortably on room air Cardiovascular: 2+ peripheral pulses, no swelling Abdominal: Non-distended, non-tender to palpation. Normal active bowel sounds Skin: No appreciable rashes or skin breakdown. Psych: Appropriate affect, alert and oriented to person, place and time. He answers questions appropriately Musculoskeletal: Inspection - Leaning forward as position of comfort Palpation - Tenderness to palpation lumbar spine Range of Motion - Limited Neurologic: borough coordinator - grossly intact Reflexes - 2+ and symmetric in bilateral biceps, triceps, brachioradiali, patellae, and Achilles. No ankle clonus. Motor - 5/5 in all planes of motion in all four extremities. Sensation - Intact to light touch throughout all four extremities Gait/Station: Antalgic gait. Balance: Poor. Transitions from exam room chair to table with difficulty TESTS/IMAGING: ASSESSMENT: 67 year old male with low back pain and lower extremity pain c/w arachnoiditis. PLAN: Recommend Low Dose Naltrexone 1.5mg capsules to help with microglial attenuation and increased response to endorphin. Risks, benefits, and alternatives discussed in detail. Rx written to [facility]: Low Dose Naltrexone 1.5mg Capsules. Use microcrystalline cellulose as filler. Recommend 1 capsule each day for one week, then increase to 2 capsules a day for one week, then increase to 3 capsules a day. Recommend physical therapy and increased activity Follow-up with [facility]. Thank you for allowing us the opportunity to participate in Malik's [facility]. I spent 60 minutes in direct [id number] time, with 50 minutes counseling him regarding treatment options and addressing specific questions. Thank you for referring him to our clinic. Christiano Ulloa MD, MS Material Loader of Anesthesiology [facility] [address] [address] / [facility] CC: Radha Mckeon MD [address] [place] [address] documented in this encounter Plan of Treatment Upcoming Encounters Date Type Department Care Team (Late st Contact Info) Description 08/18/2024 11:00 AM EDT Hospital Encounter Non-Invasive [place] [address] Arrived 02/22/2025 1:30 PM EDT Appointment Hematology and Oncology at [address] 02/22/2025 2:30 PM EDT Office Visit Hematology and Oncology at [address] Ellis Childers MD [facility] [address] [place] [address] Felicita Landa APRN [facility] [address] [place] [address] documented as of this encounter Visit Diagnoses Diagnosis Chronic bilateral low back pain, with sciatica presence unspecified documented in this encounter Care Teams Teletype Technician Relationship Specialty Start Date End Date Radha Mckeon MD [address] [place] [address] PCP - General 09/23/10 documented as of this encounter
--- OUTSIDE RECORDS SUMMARY | 2024-07-24 17:29 | XMS_ITS | Encounter Summary ---
Author Organization [facility] [place] [address] Care Team Providers Care Ncr Operator Name Role Phone Radha Mckeon MD Primary Care Provider [phone] Reason for Visit * Reason Onset Date Comments Other 05/05/2018 patient download ing information Encounter Details Date Type Department Care Team (Late st Contact Info) Description 05/05/2018 Telephone Cardiology at [address] [phone] Christina Martinez Other (patient downloading information) Social History Tobacco Use Types Packs/Day Years [...] encounter Miscellaneous Notes * Telephone Encounter - Christiane Tran - 05/05/2018 12:13 PM EDT Please call the patient at [phone] after 12:30pm with his downloaded information and next steps. documented in this encounter Plan of Treatment Upcoming Encounters Date Type Department Care Team (Late st Contact Info) Description 08/18/2024 11:00 AM EDT Hospital Encounter Non-[place] [address] Arrived 02/22/2025 1:30 PM EDT Appointment [place]ology [place] [address] 02/22/2025 2:30 PM EDT Office Visit Hematology and Oncology at [address] Ellis Childers MD [facility] [place] [address] Felicita Landa APRN [facility] [place] [address] documented as of this encounter Visit Diagnoses Not on filedocumented in this encounter Care Teams Ncr Operator Relationship Specialty Start Date End Date Radha Mckeon MD [address] [place] [address] PCP - General 09/23/10 documented as of this encounter
--- OUTSIDE RECORDS SUMMARY | 2024-07-24 17:29 | XMS_ITS | Encounter Summary ---
[place] [address] Care Team Providers Care Black Oxide Coating Equipment Tender Name Role Phone Radha Mckeon MD Primary Care Provider [phone] Encounter Details Date Type Department Care Team (Late st Contact Info) Description 08/27/2018 Orders Only Cardiology at [address] [phone] Social History Tobacco Use Types Packs/Day Years [...] AM EDT Hospital Encounter Non-Invasive [place] [address] Arrived 02/22/2025 1:30 PM EDT Appointment Hematology [place] [address] 02/22/2025 2:30 PM EDT Office Visit Hematology [place] [address] Ellis Childers MD [facility] [place] [address] Felicita Landa APRN [facility] [place] [address] documented as of this encounter Procedures Procedure Name Priority Date/Time Associated Diagnosis Comments CARDIAC DEVICE CHECK - REMOTE Routine 08/27/2018 12:47 PM EDT documented in this encounter Results * Cardiac Device Check - Remote (08/27/2018 12:47 PM EDT) Date Time Interrogation Session [employer]CO Implantable Pulse Generator Knife Glazer Medtronic IDCO Implantable Pulse Generator Model [id number] IDCO Implantable Pulse Generator Serial Number [id number] IDCO Type Interrogation Session Remote IDCO Implantable [...] Time End IDCO Atrial Tachy Statistic AT/AF Pitcher Percent 0 % IDCO Episode Statistic Recent [...] IDCO Episode Statistic Recent Date Time End [id number] IDCO Episode Statistic Recent Date Time Start [id number] IDCO Episode Statistic Recent Date Time End [id number] IDCO Episode Statistic Recent Date Time Start [id number] IDCO Episode Statistic Recent Date Time End [id number] IDCO Episode Statistic Recent Date Time Start [id number] IDCO Episode Statistic Recent Date Time End [id number] IDCO Episode Statistic Total Count 0 IDCO Episode Statistic Total Count 3 IDCO Episode Statistic Total Count 0 IDCO Episode Statistic Total Count 0 IDCO Episode Statistic Total Count 13 IDCO Episode Statistic Type Category Patient Activated IDCO Episode Statistic Total Count 0 IDCO Episode Statistic Type Category AT/AF IDCO Episode Statistic Total Date Time Start [id number] IDCO Episode Statistic Total Date Time End [id number] IDCO Episode Statistic Total Date Time Start [id number] IDCO Episode Statistic Total Date Time End [id number] IDCO Episode Statistic Total Date Time Start [id number] IDCO Episode Statistic Total Date Time End [id number] IDCO Episode Statistic Total Date Time Start [id number] IDCO Episode Statistic Total Date Time End [id number] IDCO Episode Statistic Total Date Time Start [id number] IDCO Episode Statistic Total Date Time End [id number] IDCO Episode Statistic Total Date Time Start [id number] IDCO Episode Statistic Total Date Time End [id number] IDCO Anatomical Region Laterality Modality Other 08/27/2018 12:4 7 PM EDT Physician Cardiology IMPLANTABLE CARD IAC DEVICE documented in this encounter Visit Diagnoses Not on filedocumented in this encounter Care Teams Black Oxide Coating Equipment Tender Relationship Specialty Start Date End Date Radha Mckeon MD [address] [place] [address] PCP - General 09/23/10 documented as of this encounter
--- OUTSIDE RECORDS SUMMARY | 2024-07-24 17:29 | XMS_ITS | Encounter Summary ---
Author Organization [facility] [place] [address] Care Team Providers Care Wallpaper Consultant Name Role Phone Radha Mckeon MD Primary Care Provider [phone] Encounter Details Date Type Department Care Team (Late st Contact Info) Description 12/22/2018 Telephone Cardiology at [address] [address] Malia Tsai RN Social History [...] Encounter - Malia Tsai RN - 12/22/2018 11:40 AM EST Able to contact pt and obtain further information about pt's symptoms Pt c/o arm pain, chest pain, and periods of dizziness/lightheadedness so intense that he feels likehe is going to pass out No pattern to these symptoms and he is unsure if they are related to one another. Has been going through a lot of stress in personal life recently - he has been dealing with these symptoms for months however symptoms becoming worse/more frequent He notes that he is a chronic pain pt so he always lives at a 8 out of 10 in pain (has musculoskeletal/spine issues). Chest/arm pain he describes as intermittent, sharp, & an 8 out of 10 in intensity. With this he does have intermittent SOB, and the episodes of dizziness (these last 1 - 5 min). He has an ILR but he is unable to send a remote transmission as he no longer has the proper cords. Advised him to bring his LINQ monitor with him to his appt. Recommended that based on symptoms he should be evaluated at the nearest ED. Urged pt to have someone drive him d/t lightheadedness (co-worker, family member) He states the he will go to the ED ([facility]) and he will attempt to find someone to drive him documented in this encounter Plan of Treatment Upcoming Encounters Date Type Department Care Team (Late st Contact Info) Description 08/18/2024 11:00 AM EDT Hospital Encounter Non-Invasive Cardiology Lab [place] [address] Arrived 02/22/2025 1:30 PM EDT Appointment Hematology and Oncology at [place] [address] 02/22/2025 2:30 PM EDT Office Visit Hematology and Oncology at [place] [address] Ellis Childers MD [facility] [address] [place] [address] Felicita Landa APRN [facility] [place] [address] documented as of this encounter Visit Diagnoses Not on filedocumented in this encounter Care Teams Wallpaper Consultant Relationship Specialty Start Date End Date Radha Mckeon MD [address] [place] [address] PCP - General 09/23/10 documented as of this encounter
--- OUTSIDE RECORDS SUMMARY | 2024-07-24 17:29 | XMS_ITS | Encounter Summary ---
Author Organization [facility] Address [facility] [place] [address] Care Team Providers Care Telephone Sales Agent Name Role Phone Radha Mckeon MD Primary Care Provider [phone] Encounter Details Date Type Department Care Team (Late st Contact Info) Description 08/19/2018 Notes Only Cardiology at [address] [phone] Sera Arteaga MD [facility] [place] [address] Social History Tobacco Use Types Packs/Day Years [...] of this encounter Progress Notes * Sera Arteaga MD - 08/19/2018 4:57 PM EDT ILR Remote Transmission Interpretation Date of transmission: 08/12/18 Date of implant: 04/04/18 Reason for implant: atrial fibrillation Battery: OK Events One symptom event for feels like everything is moving fast. This occurred on 06/16/18 at 18:42. Electrograms during this time are most consistent with sinus rhythm. Conclusion(s): 1). Normal functioning ILR 2). A single symptom event most consistent with sinus rhythm documented in this encounter Plan of Treatment Upcoming Encounters Date Type Department Care Team (Late st Contact Info) Description 08/18/2024 11:00 AM EDT Hospital Encounter Non[place] [address] Arrived 02/22/2025 1:30 PM EDT Appointment Hematology and Oncology at [place] [phone] 02/22/2025 2:30 PM EDT Office Visit Hematology and Oncology at [place] [address] Ellis Childers MD [facility] [address] HEMATOLOGY [place] [address] Felicita Landa APRN [facility] [address] HEMATOLOGY [place] [address] documented as of this encounter Visit Diagnoses Not on filedocumented in this encounter Care Teams Telephone Sales Agent Relationship Specialty Start Date End Date Radha Mckeon MD [address] [place] [address] PCP - General 09/23/10 documented as of this encounter
--- OUTSIDE RECORDS SUMMARY | 2024-07-24 17:29 | XMS_ITS | Encounter Summary ---
Author Organization [facility] [place] [address] Care Team Providers Care Brush Hand Name Role Phone Radha Mckeon MD Primary Care Provider [phone] Reason for Visit * Reason Comments Follow-up Encounter Details Date Type Department Care Team (Late st Contact Info) Description 02/23/2018 2:30 PM EDT Office Visit Cardiology at [address] [address] Diogo Robb PA [facility] [place] [address] Paroxysmal atrial fibrillation Social History Tobacco Use [...] Sign Reading Time Taken Comments Blood Pressure 128/75 02/23/2018 2:40 PM EDT Pulse 55 02/23/2018 2:40 PM EDT Temperature - - Respiratory Rate - - Oxygen Saturation 97% 02/23/2018 2:40 PM EDT Inhaled Oxygen Concentration - - Weight 84.4 kg (186 lb) 02/23/2018 2:40 PM EDT Height 182.9 cm (6') 02/23/2018 2:40 PM EDT Body Mass Index 25.23 02/23/2018 2:40 PM EDT documented in this encounter Progress Notes * Diogo Robb PA - 02/23/2018 2:30 PM EDT Subjective: Patient ID: Malik Machado is a 67 y.o. male. HPI 67yo man with complex arrythmia hx including afib and SVT(on monitoring but unable to elicit @ EPS), s/p afib ablation and redo afib ablation in November 2016 now with intermittent episodes of profound lightheadedness not clearly associated with either tachycardia or bradycardia. He is maintained onverapamil 120mg and metoprolol 150mg daily. He was last seen by Dr. Gan on 12/02 and it was felt that given no clear indication of symptoms corresponding with arrythmia based on Zio and previous monitoring that His symptoms may in fact be non-cardiac. He has continued to have periodic episodes and reports that shortly after removal of the Zio patch,he had a severe episode(which therefore was not captured). Patient Active Problem List Diagnosis ??? A-fib Overview Note: --Recurrent AF --S/P cardioversions x 3 (09/2005, 01/2006, 07/2007). --AF that has resolved spontaneously (12/2006, etc). 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 --Flecainide stopped after 4 doses due to MN/QRS prolongation, 12/2007. --Started on dofetilide 500mcg BID [...] --Amitriptyline (palpitations), Lipitor (liver enzyme abnormalities), flecainide (MN/QRS prolongation noted 12/2007). ??? History of surgery Overview Note: --S/p pyloric stenosis surgery 1951, appendectomy 1969, right carpal tunnel surgery 1974, spinal fusion 1993 (redo back surgery 1995, 1998), umbilical hernia repair 1997, left carpal tunnel repair 2002, left elbow surgery 2004, right total knee replacement 2009. ??? Thrombocytopenia - chronic ??? S/P knee replacement Overview Note: SURGERY [...] Constitutional: Negative for chills, diaphoresis and fever. Respiratory: Negative for cough, chest tightness and shortness of breath. Cardiovascular: Positive for palpitations. Negative for chest pain and leg swelling. Gastrointestinal: Negative for diarrhea, nausea and vomiting. Neurological: Positive for dizziness and light-headedness. Negative for syncope. Social History Substance Use Topics ??? Smoking status: Former Smoker Packs/day: 2.00 Years: 16.00 Types: Cigarettes Quit date: 08/13/1983 ??? Smokeless tobacco: Never Used ??? Alcohol use No Current Outpatient Prescriptions Medication Sig Dispense Refill ??? omeprazole (PRILOSEC) 20 mg Capsule, Delayed Release(E.C.) 20 mg 2 times daily. ??? BOTOX 200 unit Recon Soln ??? meTOPROLOL succinate (TOPROL-XL) 100 mg Tablet Sustained Release 24 hr Take 1.5 tablets by mouth daily. 135 tablet PRN ??? gabapentin (NEURONTIN) 300 mg Capsule nightly. ??? verapamil (CALAN-SR) 120 mg Tablet Sustained Release Take 1 tablet by mouth daily. 90 tablet 3 ??? levothyroxine (SYNTHROID) 100 mcg Tablet Take 100 mcg by mouth daily. ??? apixaban (ELIQUIS) 5 mg Tablet Take 5 mg by mouth 2 times daily. ??? ranitidine (ZANTAC) 150 mg Tablet Take 150 mg by mouth nightly. ??? valACYclovir (VALTREX) 500 mg Tablet Take 500 mg by mouth daily. ??? MULTIVITAMIN W-MINERALS/LUTEIN (CENTRUM SILVER ORAL) Take 1 tablet by mouth. ??? [place]-3 Fatty Acids-Vitamin E (FISH OIL) 1,000 mg Cap Take 1,000 mg by mouth 2 times daily. ??? baclofen (LIORESAL) 10 mg tablet Take 10 mg by mouth nightly. ??? simvastatin (ZOCOR) 10 mg tablet Take 10 mg by mouth nightly. ??? QUEtiapine (SEROQUEL) 25 mg Tablet 25 mg nightly. ??? SUMAtriptan (IMITREX) 20 mg/actuation [place], Non-Aerosol 1 spray by Nasal route as needed. For migraines ??? oxyCODONE (ROXICODONE) 15 mg Tablet Take 15 mg by mouth every 4 hours as needed for Pain. ??? acetaminophen (TYLENOL) 500 mg tablet Take 1,000 mg by mouth as needed. Indications: Headache Disorder, Pain ??? zolpidem (AMBIEN) 5 mg tablet Take 5 mg by mouth nightly as needed. 1 to 2 tabs hs prn ??? glucosamine-chondroitin 500-400 mg tablet Objective: Physical Exam Constitutional: He is oriented to person, place, and time. No distress. Neck: No JVD present. Cardiovascular: Normal rate and regular rhythm. Pulmonary/Chest: Effort normal and breath sounds normal. Musculoskeletal: Normal range of motion. He exhibits no edema. Neurological: He is alert and oriented to person, place, and time. Skin: Skin is warm and dry. He is not diaphoretic. Nursing note and vitals reviewed. 12 lead EK02/23/2018 Sinus bradycardia @ 55; MN 180; QRS 138; QTc 419ms; RBBB and LAFB Echocardiogram:??11/24/2016 1. Limited follow up study post [...] and systolic function are within normal limits. Zio: 12/24/2016 The patient wrote in 2 timed diary entries for symptoms (noting dizziness +/- lightheadedness); normal sinus rhythm 62-66/minute was present at the associated times specified. There were 55 patient-triggered events that largely corresponded to normal sinus rhythm, infrequently with supraventricularectopic beats; in one case there were the 2 ventricular runs (described above) that emerged from sinus rhythm at 82/minute. This monitor study was remarkable for sinus rhythm with limited rate variability(47-112, avg 67). There were 2 nonsustained runs of an accelerated idioventricular rhythm on December 24 at ~1 PM. Assessment and Plan: 67yo man with complex arrythmia hx including afib and SVT(on monitoring but unable to elicit @ EPS), s/p afib ablation and redo afib ablation in November 2016 now with intermittent episodes of profound lightheadedness not clearly associated with either tachycardia or bradycardia. He underwent repeatZio monitoring in December and this demonstrated sinus rhythm with limited rate variability, 2 nonsustained runs of AIVR and occasional symptomatic supraventricular ectopic beats that were symptomatic. He is now undergoing both neurologic and ENT evaluation(?migraine) without conclusion so far. He remains concerned, frustrated and anxious to improve his symptoms. The only additional possible option for on-going cardiac assessment would be an ILR. This would provide no treatment but would offer the opportunity to record his cardiac rhythm and correlate them with his symptoms on a more consistent basis. No routine EP follow up is currently indicated. If he is interested in pursuing this, he will contact us. Provider: ANDREE Shelley Provider#: [id number] Consult attending physician: Britt Benson MD documented in this encounter Plan of Treatment Upcoming Encounters Date Type Department Care Team (Late st Contact Info) Description 08/18/2024 11:00 AM EDT Hospital Encounter Non-[place] [address] Arrived 02/22/2025 1:30 PM EDT Appointment Hematology and Oncology at [place] [address] 02/22/2025 2:30 PM EDT Office Visit Hematology and Oncology at [place] [address] Ellis Childers MD [facility] [address] [place] [address] Felicita Landa APRN [facility] [address] [place] [address] documented as of this encounter Procedures Procedure Name Priority Date/Time Associated Diagnosis Comments EKG 12-LEAD Routine 02/23/2018 2:53 PM EDT Paroxysmal atrial fibrillation documented in this encounter Results * EKG 12 Lead (02/23/2018 2:53 PM EDT) Ventricular rate 55 BPM MUSE SYSTEM Atrial Rate 55 BPM MUSE SYSTEM P-R Interval 180 ms MUSE SYSTEM QRS Duration 138 ms MUSE SYSTEM Q-T Interval 438 ms MUSE SYSTEM QTC Calculated (Bezet) 419 ms MUSE SYSTEM Calculated P [place] 60 degrees MUSE SYSTEM Calculated R [place] -50 degrees MUSE SYSTEM Calculated T [place] -11 degrees MUSE SYSTEM INTERPRETATION Sinus bradycardia Right bundle branch block Left anterior fascicular block Bifascicular block Minimal voltage criteria for LVH, may be normal variant Abnormal ECG When compared with ECG of 17-AUG-2017 11:32, No significant change was found Confirmed by MD Naveen, Arden ([id number]) on 02/24/2018 11:13:38 AM MUSE SYSTEM 02/23/2018 2:53 PM EDT 02/24/2018 11:13 AM EDT Garrett Benson MD ECG ORDERABLES MUSE SYSTEM documented in this encounter Visit Diagnoses Diagnosis Paroxysmal atrial fibrillation Atrial fibrillation documented in this encounter Care Teams Brush Hand Relationship Specialty Start Date End Date Radha Mckeon MD [address] [place] [address] PCP - General 09/23/10 documented as of this encounter
--- OUTSIDE RECORDS SUMMARY | 2024-07-24 17:29 | XMS_ITS | Encounter Summary ---
Author Organization [place] [address] Care Team Providers Care Human Services Manager Name Role Phone Radha Mckeon MD Primary Care Provider [phone] Encounter Details Date Type Department Care Team (Late st Contact Info) Description 08/11/2018 Telephone Cardiology at [address] [address] Marissa Hutchison RN Social History Tobacco Use [...] Telephone Encounter - Marissa Hutchison RN - 08/11/2018 10:27 AM EDT He has not gotten a wire-t that he requested. I [facility] and gave him the # to our imaging scheduler and [facility] patient services documented in this encounter Plan of Treatment Upcoming Encounters Date Type Department Care Team (Late st Contact Info) Description 08/18/2024 11:00 AM EDT Hospital Encounter Non-Invasive [place] [address] Arrived 02/22/2025 1:30 PM EDT Appointment Hematology and Oncology at [place] [address] 02/22/2025 2:30 PM EDT Office Visit Hematology [place] [address] Ellis Childers MD [facility] [address] [place] [address] Felicita Landa APRN [facility] [address] [place] [address] documented as of this encounter Visit Diagnoses Not on filedocumented in this encounter Care Teams Human Services Manager Relationship Specialty Start Date End Date Radha Mckeon MD [address] [place] [address] PCP - General 09/23/10 documented as of this encounter
--- OUTSIDE RECORDS SUMMARY | 2024-07-24 17:29 | XMS_ITS | Encounter Summary ---
[place] [address] Care Team Providers Care Dumpman Name Role Phone Radha Mckeon MD Primary Care Provider [phone] Encounter Details Date Type Department Care Team (Late st Contact Info) Description 07/19/2018 Orders Only Cardiology at [address] [phone] Social History Tobacco Use Types Packs/Day Years [...] AM EDT Hospital Encounter Non-[place] [phone] Arrived 02/22/2025 1:30 PM EDT Appointment Hematology [place] [phone] 02/22/2025 2:30 PM EDT Office Visit Hematology [place] [address] Ellis Childers MD [facility] [address] [place] [address] Felicita Landa APRN [facility] [place] [address] documented as of this encounter Procedures Procedure Name Priority Date/Time Associated Diagnosis Comments CARDIAC DEVICE CHECK - REMOTE Routine 07/19/2018 12:40 AM EDT documented in this encounter Results * Cardiac Device Check - Remote (07/19/2018 12:40 AM EDT) Date Time Interrogation Session [id number] IDCO Implantable Pulse Generator Mill[place] Supervisor [employer] IDCO Implantable Pulse Generator Model [id number] IDCO Implantable Pulse Generator Serial Number [id number] IDCO Type Interrogation Session Remote IDCO Implantable Pulse Generator Type Implantable Diagnostic Monitor IDCO Implantable Pulse Generator Implant Date IDCO Anatomical Region Laterality Modality Other 07/19/2018 12:4 0 AM EDT Physician Cardiology IMPLANTABLE CARD IAC DEVICE documented in this encounter Visit Diagnoses Not on filedocumented in this encounter Care Teams Dumpman Relationship Specialty Start Date End Date Radha Mckeon MD [address] [place] [address] PCP - General 09/23/10 documented as of this encounter
--- OUTSIDE RECORDS SUMMARY | 2024-07-24 17:29 | XMS_ITS | Encounter Summary ---
Author Organization [facility] [place] [address] Care Team Providers Care Soft Work Cigar Machine Operator Name Role Phone Radha Mckeon MD Primary Care Provider [phone] Encounter Details Date Type Department Care Team (Late st Contact Info) Description 03/29/2018 Orders Only Cardiology at [address] [phone] Diogo Robb PA [facility] [place] [address] Social History Tobacco Use Types Packs/Day Years [...] AM EDT Hospital Encounter Non-[place] [address] Arrived 02/22/2025 1:30 PM EDT Appointment H[place]ology [place] [phone] 02/22/2025 2:30 PM EDT Office Visit [place]ology [place] [address] Ellis Childers MD [facility] DR HEMATOLOGY AND ONCOLOGY [place], [place] [phone] Felicita Landa APRN [facility] [address] HEMATOLOGY [place] [address] documented as of this encounter Visit Diagnoses Not on filedocumented in this encounter Care Teams Soft Work Cigar Machine Operator Relationship Specialty Start Date End Date Radha Mckeon MD [address] [place] [address] PCP - General 09/23/10 documented as of this encounter
--- OUTSIDE RECORDS SUMMARY | 2024-07-24 17:29 | XMS_ITS | Encounter Summary ---
Author [place] [address] Care Team Providers Care Ductfixing Plumber Name Role Phone Radha Mckeon MD Primary Care Provider [phone] Encounter Details Date Type Department Care Team (Late st Contact Info) Description 09/19/2018 Orders Only Cardiology at [address] [phone] Social History Tobacco Use Types Packs/Day Years [...] AM EDT Hospital Encounter Non-[place] [phone] Arrived 02/22/2025 1:30 PM EDT Appointment Hematology [place] [phone] 02/22/2025 2:30 PM EDT Office Visit Hematology [place] [address] Ellis Childers MD [facility] [address] HEMATOLOGY [place] [address] Felicita Landa APRN [facility] HEMATOLOGY [place] [address] documented as of this encounter Procedures Procedure Name Priority Date/Time Associated Diagnosis Comments CARDIAC DEVICE CHECK - REMOTE Routine 09/19/2018 1:00 PM EST documented in this encounter Results * Cardiac Device Check - Remote (09/19/2018 1:00 PM EST) Date Time Interrogation Session IDCO Implantable Pulse Generator Physical Therapist Clinic Director [employer] IDCO Implantable Pulse Generator Model [id number] IDCO Implantable Pulse Generator Serial Number [id number] IDCO Type Interrogation Session Remote IDCO Implantable [...] Time End IDCO Atrial Tachy Statistic AT/AF [place] Percent 0 % IDCO Episode Statistic Recent [...] IDCO Episode Statistic Recent Date Time End [id number] IDCO Episode Statistic Recent Date Time Start [id number] IDCO Episode Statistic Recent Date Time End [id number] IDCO Episode Statistic Recent Date Time Start [id number] IDCO Episode Statistic Recent Date Time End [id number] IDCO Episode Statistic Recent Date Time Start [id number] IDCO Episode Statistic Recent Date Time End [id number] IDCO Episode Statistic Total Count 0 IDCO Episode Statistic Total Count 3 IDCO Episode Statistic Total Count 0 IDCO Episode Statistic Total Count 0 IDCO Episode Statistic Total Count 13 IDCO Episode Statistic Type Category Patient Activated IDCO Episode Statistic Total Count 0 IDCO Episode Statistic Type Category AT/AF IDCO Episode Statistic Total Date Time Start [id number] IDCO Episode Statistic Total Date Time End [id number] IDCO Episode Statistic Total Date Time Start [id number] IDCO Episode Statistic Total Date Time End [id number] IDCO Episode Statistic Total Date Time Start [id number] IDCO Episode Statistic Total Date Time End [id number] IDCO Episode Statistic Total Date Time Start [id number] IDCO Episode Statistic Total Date Time End [id number] IDCO Episode Statistic Total Date Time Start [id number] IDCO Episode Statistic Total Date Time End [id number] IDCO Episode Statistic Total Date Time Start [id number] IDCO Episode Statistic Total Date Time End [id number] IDCO Anatomical Region Laterality Modality Other 09/19/2018 1:00 PM EST Physician Cardiology IMPLANTABLE CARD IAC DEVICE documented in this encounter Visit Diagnoses Not on filedocumented in this encounter Care Teams Ductfixing Plumber Relationship Specialty Start Date End Date Radha Mckeon MD [address] [place] [address] PCP - General 09/23/10 documented as of this encounter
--- OUTSIDE RECORDS SUMMARY | 2024-07-24 17:29 | XMS_ITS | Encounter Summary ---
[place] [address] Care Team Providers Care Finished Cigar Maker Name Role Phone Radha Mckeon MD Primary Care Provider [phone] Encounter Details Date Type Department Care Team (Late st Contact Info) Description 03/25/2018 Orders Only [place] [address] Rosanna Pizano Social History Tobacco Use Types [...] AM EDT Hospital Encounter Non-[place] [phone] Arrived 02/22/2025 1:30 PM EDT Appointment Hematology [place] [address] 02/22/2025 2:30 PM EDT Office Visit Hematology [place] [address] Ellis Childers MD [facility] [place] [address] Felicita Landa APRN [facility] [place] [address] documented as of this encounter Visit Diagnoses Not on filedocumented in this encounter Care Teams Finished Cigar Maker Relationship Specialty Start Date End Date Radha Mckeon MD [address] [place] [address] PCP - General 09/23/10 documented as of this encounter
--- OUTSIDE RECORDS SUMMARY | 2024-07-24 17:29 | XMS_ITS | Encounter Summary ---
[place] [address] Care Team Providers Care Radiation / Chemistry Technician Name Role Phone Radha Mckeon MD Primary Care Provider [phone] Encounter Details Date Type Department Care Team (Late st Contact Info) Description 09/16/2018 Orders Only Cardiology at [address] [phone] Social History Tobacco Use Types Packs/Day Years [...] AM EDT Hospital Encounter Non-[place] [phone] Arrived 02/22/2025 1:30 PM EDT Appointment Hematology [place] [phone] 02/22/2025 2:30 PM EDT Office Visit [place]ematology [place] [address] Ellis Childers MD [facility] [place] [address] Felicita Landa APRN [facility] [place] [address] documented as of this encounter Procedures Procedure Name Priority Date/Time Associated Diagnosis Comments CARDIAC DEVICE CHECK - REMOTE Routine 09/16/2018 3:14 PM EST documented in this encounter Results * Cardiac Device Check - Remote (09/16/2018 3:14 PM EST) Date Time Interrogation Session IDCO Implantable Pulse Generator Ob Gyn Physician Assistant [employer] IDCO Implantable Pulse Generator Model [id number] IDCO Implantable Pulse Generator Serial Number [id number] IDCO Type Interrogation Session Remote IDCO Implantable [...] Time End IDCO Atrial Tachy Statistic AT/AF [place] Percent 0 % IDCO Episode Statistic Recent [...] IDCO Episode Statistic Recent Date Time End [id number] IDCO Episode Statistic Recent Date Time Start [id number] IDCO Episode Statistic Recent Date Time End [id number] IDCO Episode Statistic Recent Date Time Start [id number] IDCO Episode Statistic Recent Date Time End [id number] IDCO Episode Statistic Recent Date Time Start [id number] IDCO Episode Statistic Recent Date Time End [id number] IDCO Episode Statistic Total Count 0 IDCO Episode Statistic Total Count 3 IDCO Episode Statistic Total Count 0 IDCO Episode Statistic Total Count 0 IDCO Episode Statistic Total Count 13 IDCO Episode Statistic Type Category Patient Activated IDCO Episode Statistic Total Count 0 IDCO Episode Statistic Type Category AT/AF IDCO Episode Statistic Total Date Time Start [id number] IDCO Episode Statistic Total Date Time End [id number] IDCO Episode Statistic Total Date Time Start [id number] IDCO Episode Statistic Total Date Time End [id number] IDCO Episode Statistic Total Date Time Start [id number] IDCO Episode Statistic Total Date Time End [id number] IDCO Episode Statistic Total Date Time Start [id number] IDCO Episode Statistic Total Date Time End [id number] IDCO Episode Statistic Total Date Time Start [id number] IDCO Episode Statistic Total Date Time End [id number] IDCO Episode Statistic Total Date Time Start [id number] IDCO Episode Statistic Total Date Time End [id number] IDCO Anatomical Region Laterality Modality Other 09/16/2018 3:14 PM EST Physician Cardiology IMPLANTABLE CARD IAC DEVICE documented in this encounter Visit Diagnoses Not on filedocumented in this encounter Care Teams Radiation / Chemistry Technician Relationship Specialty Start Date End Date Radha Mckeon MD [address] [place] [address] PCP - General 09/23/10 documented as of this encounter
--- OUTSIDE RECORDS SUMMARY | 2024-07-24 17:29 | XMS_ITS | Encounter Summary ---
[place] [address] Care Team Providers Care Carbon Paper Coating Machine Setter Name Role Phone Radha Mckeon MD Primary Care Provider [phone] Encounter Details Date Type Department Care Team (Late st Contact Info) Description 03/29/2018 Orders Only Cardiology at [address] [address] Rosanna Pizano Social History Tobacco Use [...] AM EDT Hospital Encounter Non-[place] [phone] Arrived 02/22/2025 1:30 PM EDT Appointment Hematology [place] [address] 02/22/2025 2:30 PM EDT Office Visit Hematology [place] [address] Ellis Childers MD [facility] DR HEMATOLOGY [place] [address] Felicita Landa APRN [facility] DR HEMATOLOGY [place] [address] documented as of this encounter Visit Diagnoses Not on filedocumented in this encounter Care Teams Carbon Paper Coating Machine Setter Relationship Specialty Start Date End Date Radha Mckeon MD [address] [place] [address] PCP - General 09/23/10 documented as of this encounter
--- OUTSIDE RECORDS SUMMARY | 2024-07-24 17:29 | XMS_ITS | Encounter Summary ---
[place] [address] Care Team Providers Care Rn Oncology Clinical Name Role Phone Radha Mckeon MD Primary Care Provider [phone] Encounter Details Date Type Department Care Team (Late st Contact Info) Description 08/27/2018 Orders Only Cardiology at [address] [phone] Social History Tobacco Use Types Packs/Day Years [...] AM EDT Hospital Encounter Non-[place] [address] Arrived 02/22/2025 1:30 PM EDT Appointment Hematology [place] [address] 02/22/2025 2:30 PM EDT Office Visit [place]ematology [place] [address] Ellis Childers MD [facility] DR HEMATOLOGY [place] [address] Felicita Landa APRN [facility] HEMATOLOGY [place] [address] documented as of this encounter Procedures Procedure Name Priority Date/Time Associated Diagnosis Comments CARDIAC DEVICE CHECK - REMOTE Routine 08/27/2018 12:44 PM EDT documented in this encounter Results * Cardiac Device Check - Remote (08/27/2018 12:44 PM EDT) Date Time Interrogation Session IDCO Implantable Pulse Generator Advertising Copywriter Medtronic IDCO Implantable Pulse Generator Model [id number] IDCO Implantable Pulse Generator Serial Number [id number] IDCO Type Interrogation Session Remote IDCO Implantable [...] Time End IDCO Atrial Tachy Statistic AT/AF [place] Percent 0 % IDCO Episode Statistic Recent [...] IDCO Episode Statistic Recent Date Time End [id number] IDCO Episode Statistic Recent Date Time Start [id number] IDCO Episode Statistic Recent Date Time End [id number] IDCO Episode Statistic Recent Date Time Start [id number] IDCO Episode Statistic Recent Date Time End [id number] IDCO Episode Statistic Recent Date Time Start 25905906934881 IDCO Episode Statistic Recent Date Time End [id number] IDCO Episode Statistic Total Count 0 IDCO Episode Statistic Total Count 3 IDCO Episode Statistic Total Count 0 IDCO Episode Statistic Total Count 0 IDCO Episode Statistic Total Count 13 IDCO Episode Statistic Type Category Patient Activated IDCO Episode Statistic Total Count 0 IDCO Episode Statistic Type Category AT/AF IDCO Episode Statistic Total Date Time Start [id number] IDCO Episode Statistic Total Date Time End 20463029292726 IDCO Episode Statistic Total Date Time Start 77770137516657 IDCO Episode Statistic Total Date Time End 36820271453766 IDCO Episode Statistic Total Date Time Start 71791920802409 IDCO Episode Statistic Total Date Time End 16250018056343 IDCO Episode Statistic Total Date Time Start 11234817300977 IDCO Episode Statistic Total Date Time End 43646731600388 IDCO Episode Statistic Total Date Time Start 91983880597240 IDCO Episode Statistic Total Date Time End 92053711735016 IDCO Episode Statistic Total Date Time Start 33918772739280 IDCO Episode Statistic Total Date Time End [id number] IDCO Anatomical Region Laterality Modality Other 08/27/2018 12:4 4 PM EDT Physician Cardiology IMPLANTABLE CARD IAC DEVICE documented in this encounter Visit Diagnoses Not on filedocumented in this encounter Care Teams Rn Oncology Clinical Relationship Specialty Start Date End Date Radha Mckeon MD [address] [place] [address] PCP - General 09/23/10 documented as of this encounter
--- OUTSIDE RECORDS SUMMARY | 2024-07-24 17:29 | XMS_ITS | Encounter Summary ---
[place] [address] Care Team Providers Care Manager Infrastructure Name Role Phone Radha Mckeon MD Primary Care Provider [phone] Encounter Details Date Type Department Care Team (Late st Contact Info) Description 08/24/2018 External Results Cardiology at [address] [phone] Radha Mckeon MD [address] [place] [address] Social History Tobacco Use Types Packs/Day Years [...] AM EDT Hospital Encounter Non-[place] [address] Arrived 02/22/2025 1:30 PM EDT Appointment [place] [address] 02/22/2025 2:30 PM EDT Office Visit [place]ology [place] [address] Ellis Childers MD [facility] DR HEMATOLOGY [place] [address] Felicita Landa APRN [facility] DR HEMATOLOGY AND ONCOLOGY [place], [place] [id number] documented as of this encounter Procedures Procedure Name Priority Date/Time Associated Diagnosis Comments EP DEVICE SCAN Routine 04/19/2018 documented in this encounter Results * Scan Doc: EP Device (04/19/2018) Anatomical Region Laterality Modality Other Radha Mckeon MD MEDIA MGR SCAN EXT O RDR/RSLT documented in this encounter Visit Diagnoses Not on filedocumented in this encounter Care Teams Manager Infrastructure Relationship Specialty Start Date End Date Radha Mckeon MD [address] [place] [address] PCP - General 09/23/10 documented as of this encounter
--- OUTSIDE RECORDS SUMMARY | 2024-07-24 17:29 | XMS_ITS | Encounter Summary ---
[place] [address] Care Team Providers Care Sugar Laboratory Assistant Name Role Phone Radha Mckeon MD Primary Care Provider [phone] Reason for Visit * Reason Onset Date Comments Follow-up 04/20/2018 Encounter Details Date Type Department Care Team (Late st Contact Info) Description 04/20/2018 Telephone [place] [phone] Valery Enriquez, RN Follow-up Social History Tobacco Use Types Packs/Day Years [...] encounter Miscellaneous Notes * Telephone Encounter - Sol Enriquez, RN - 04/20/2018 11:30 AM EDT Patient called and wanted to speak to Elke Samuel regarding sense of smell and sense. Chart records faxed to Dr. Jeramie Cabrera in [place] documented in this encounter Plan of Treatment Upcoming Encounters Date Type Department Care Team (Late st Contact Info) Description 08/18/2024 11:00 AM EDT Hospital Encounter Non-[place] [address] Arrived 02/22/2025 1:30 PM EDT Appointment Hematology [place] [address] 02/22/2025 2:30 PM EDT Office Visit Hematology [place] [address] Ellis Childers MD [facility] [address] [place] [address] Felicita Landa APRN [facility] [address] [place] [address] documented as of this encounter Visit Diagnoses Not on filedocumented in this encounter Care Teams Sugar Laboratory Assistant Relationship Specialty Start Date End Date Radha Mckeon MD [address] [place] [address] PCP - General 09/23/10 documented as of this encounter
--- OUTSIDE RECORDS SUMMARY | 2024-07-24 17:29 | XMS_ITS | Encounter Summary ---
[place] [address] Care Team Providers Care Payroll Technician Name Role Phone Radha Mckeon MD Primary Care Provider [phone] Encounter Details Date Type Department Care Team (Late st Contact Info) Description 05/27/2018 Orders Only Cardiology at [address] [phone] Social History Tobacco Use Types Packs/Day Years [...] AM EDT Hospital Encounter Non-[place] [address] Arrived 02/22/2025 1:30 PM EDT Appointment Hematology [place] [phone] 02/22/2025 2:30 PM EDT Office Visit Hematology [place] [address] Ellis Childers MD [facility] [place] [address] Felicita Landa APRN [facility] [place] [address] documented as of this encounter Procedures Procedure Name Priority Date/Time Associated Diagnosis Comments CARDIAC DEVICE CHECK - REMOTE Routine 05/27/2018 2:58 PM EDT documented in this encounter Results * (ABNORMAL) Cardiac Device Check - Remote (05/27/2018 2:58 PM EDT) Date Time Interrogation Session [id number] IDCO Implantable Pulse Generator Donor Recruiter Medtronic IDCO Implantable Pulse Generator Model [id number] IDCO Implantable Pulse Generator Serial Number [id number] IDCO Type Interrogation Session Remote IDCO Implantable [...] IDCO Battery Status OK IDCO Episode Identifier 15 IDCO Episode Type Category Patient Activated IDCO Episode Date Time [id number] IDCO Episode Identifier 14 IDCO Episode Type Category Patient Activated IDCO Episode Date Time [id number] IDCO Episode Identifier 13 IDCO Episode Type Category Patient Activated IDCO Episode Date Time [id number] IDCO Episode Identifier 12 IDCO Episode Type Category Patient Activated IDCO Episode Date Time [id number] IDCO Episode Identifier 11 IDCO Episode Type Category Patient Activated IDCO Episode Date Time [id number] IDCO Episode Identifier 10 IDCO Episode Type Category Patient Activated IDCO Episode Date Time [id number] IDCO Episode Identifier 9 IDCO Episode Type Category Patient Activated IDCO Episode Date Time [id number] IDCO Atrial Tachy Statistic Date Time Start IDCO Atrial Tachy Statistic Date Time End [id number] IDCO Atrial Tachy Statistic AT/AF [place] Percent 0 % IDCO Episode Statistic Recent Count 0 IDCO Episode Statistic Recent Count 0 IDCO Episode Statistic Recent Count 0 IDCO Episode Statistic Recent Count 0 IDCO Episode Statistic Recent Count 7 IDCO Episode Statistic Type Category Patient Activated IDCO Episode Statistic Recent Count 0 IDCO Episode Statistic Type Category AT/AF IDCO Episode Statistic Recent Date Time Start IDCO Episode Statistic Recent Date Time End [id number] IDCO Episode Statistic Recent Date Time Start IDCO Episode Statistic Recent Date Time End 23057714604769 IDCO Episode Statistic Recent Date Time Start IDCO Episode Statistic Recent Date Time End 07510986011423 IDCO Episode Statistic Recent Date Time Start IDCO Episode Statistic Recent Date Time End [id number] IDCO Episode Statistic Recent Date Time Start IDCO Episode Statistic Recent Date Time End 53083590786348 IDCO Episode Statistic Recent Date Time Start IDCO Episode Statistic Recent Date Time End 32066303086659 IDCO Episode Statistic Total Count 0 IDCO Episode Statistic Total Count 3 IDCO Episode Statistic Total Count 0 IDCO Episode Statistic Total Count 0 IDCO Episode Statistic Total Count 12 IDCO Episode Statistic Type Category Patient Activated IDCO Episode Statistic Total Count 0 IDCO Episode Statistic Type Category AT/AF IDCO Episode Statistic Total Date Time Start 07217254043288 IDCO Episode Statistic Total Date Time End 89296194295789 IDCO Episode Statistic Total Date Time Start 14478575291438 IDCO Episode Statistic Total Date Time End 95240443800378 IDCO Episode Statistic Total Date Time Start 54741575286148 IDCO Episode Statistic Total Date Time End 21582376150499 IDCO Episode Statistic Total Date Time Start 13373794200078 IDCO Episode Statistic Total Date Time End 08021838033877 IDCO Episode Statistic Total Date Time Start 62952666496627 IDCO Episode Statistic Total Date Time End 67614034956938 IDCO Episode Statistic Total Date Time Start 84219766957598 IDCO Episode Statistic Total Date Time End 63324254684545 IDCO Anatomical Region Laterality Modality Other 05/27/2018 2:58 PM EDT Physician Cardiology MD IMPLANTABLE CARD IAC DEVICE documented in this encounter Visit Diagnoses Not on filedocumented in this encounter Care Teams Payroll Technician Relationship Specialty Start Date End Date Radha Mckeon MD [address] [place] [address] PCP - General 09/23/10 documented as of this encounter
--- OUTSIDE RECORDS SUMMARY | 2024-07-24 17:29 | XMS_ITS | Encounter Summary ---
[place] [address] Care Team Providers Care Projects Manager Name Role Phone Radha Mckeon MD Primary Care Provider [phone] Reason for Referral * Physical Therapy (Routine) - Closed Specialty Diagnoses / Procedures Referred By Becki guillory Referred To Contact Physical Therapy Diagnoses Vertigo Elke Samuel APRN [facility] [place] [address] [facility] [place] [address] Referral ID Status Reason Start Date Expiration Date V isits Requested Visits Authorized [id number] Closed Evaluate and Treat 02/24/2018 02/24/2019 1 1 Reason for Visit * Reason Comments Follow-up Encounter Details Date Type Department Care Team (Late st Contact Info) Description 02/23/2018 1:30 PM EDT Office [place] [address] Elke Samuel APRN [facility] [place] [address] Vertigo Social History Tobacco Use Types Packs/Day [...] as of this encounter Progress Notes * Elke Samuel, MANAGER UTILIZATION MANAGEMENT - 02/23/2018 1:30 PM EDT Subjective: Patient ID: Malik Machado is a 67 y.o. male. HPI Patient seen initiall for episodic vertigo nasal/throat congestion, on 01/11/18. Vertigo differential cervicogenic and migraine, referred to [facility] for vestibular rehab. Consider MRI if no improvement. Laryngosccopy notable for significant nasal mucous and crusting/bleeding; instructed in nasal hygiene. Patient was seen by physical therapy and [facility] and per the patient's report, the patientthe physical therapist felt that his symptoms were most consistent with a cardiac origin. He per report was tested for benign positional vertigo and was found to be negative. He continues to have episodic and spontaneous vertigo. There is an abnormal sensation of movement as well as disequilibrium.Duration of episodes ranged from a few minutes to less than half hour. These episodes can occur when he is sitting and are not positionally provoked. He is followed by a neurologist locally and beingtreated for migraine headaches with Botox injections, which have been somewhat helpful with his head aches. He is seeing cardiology later today for evaluation of any possible cardiovascular contributor to his episodes. Regarding his nasal congestion, he has been using Flonase and saline rinses. He feels some improvement but continues to feel blocked. 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 Review of Systems HENT: Positive for congestion and sinus pressure. Negative for ear pain, hearing loss, trouble swallowing and voice change. Neurological: Positive for dizziness. Negative for facial asymmetry. Objective: Physical Exam Constitutional: He appears well-developed. No distress. HENT: Head: Normocephalic. Right Ear: Tympanic membrane, external ear and ear canal normal. Left Ear: Tympanic membrane, external ear and ear canal normal. Ocular Exam: No spontaneous or gaze evoked nystagmus, EOMI with smooth pursuit Eyes Closed Rhomberg - stable Tandem Rhomberg - stable for 10 - 20 sec Tandem Gait - able to walk 5 ft with pivot and return with minimal or no errors Fukuda Test - stable with left drift ?? Assessment and Plan: Patient with the above history. Initially saw him for nasal congestion. His vertigo differentials include migrainous vertigo but there is a possibility of a retrocochlear lesion given that there was a slight asymmetry on his hearing test. He also describes a feeling of lightheadedness and near syncope at times, so it is fortunate that he is seeing cardiology to evaluate this as well. I would liketo proceed with additional testing to be able to determine whether there is a migrainous component to his vertigo, so we will proceed with a video nystagmography as well as platform balance testing and physical therapy here at [facility]. We will arrange for these and I will contact the patient following his testing for additional recommendations. documented in this encounter Plan of Treatment Upcoming Encounters Date Type Department Care Team (Late st Contact Info) Description 08/18/2024 11:00 AM EDT Hospital Encounter Non-[place] [address] Arrived 02/22/2025 1:30 PM EDT Appointment H[place]ology [place] [address] 02/22/2025 2:30 PM EDT Office Visit Hematology [place] [address] Ellis Childers MD [facility] HEMATOLOGY [place] [address] Felicita Landa APRN [facility] HEMATOLOGY [place] [address] Scheduled Referrals Name Type Priority Associated Diagnoses Orde r Schedule Referral to Physical Therapy Outpatient Referral Routine Vertigo Ordered: 02/24/2018 documented as of this encounter Visit Diagnoses Diagnosis Vertigo Dizziness and giddiness documented in this encounter Care Teams Projects Manager Relationship Specialty Start Date End Date Radha Mckeon MD [address] [place] [address] PCP - General 09/23/10 documented as of this encounter
--- OUTSIDE RECORDS SUMMARY | 2024-07-24 17:29 | XMS_ITS | Encounter Summary ---
Author Organization [facility] [place] [address] Care Team Providers Care Package Crimper Name Role Phone Radha Mckeon MD Primary Care Provider [phone] Reason for Visit * Reason Onset Date Comments Other 01/11/2018 patient would li ke a call today regarding results from last visit Encounter Details Date Type Department Care Team (Late st Contact Info) Description 01/11/2018 Telephone Cardiology at [address] [address] Diogo Robb, PA [facility] [place] [address] Other (patient would like a call today regarding results from last visit) Social History Tobacco Use Types Packs/Day Years [...] encounter Miscellaneous Notes * Telephone Encounter - Jesica Avery - 01/11/2018 2:52 PM EDT Patient is here today for other appointments. Please call his cell [phone]. He wants to discuss results from last visit with you. documented in this encounter Plan of Treatment Upcoming Encounters Date Type Department Care Team (Late st Contact Info) Description 08/18/2024 11:00 AM EDT Hospital Encounter Non-Invasive [place]iology [place] [address] Arrived 02/22/2025 1:30 PM EDT Appointment Hematology [place] [address] 02/22/2025 2:30 PM EDT Office Visit Hematology [place] [address] Ellis Childers MD [facility] DR HEMATOLOGY [place] [address] Felicita Landa APRN [facility] DR HEMATOLOGY [place] [address] documented as of this encounter Visit Diagnoses Not on filedocumented in this encounter Care Teams Package Crimper Relationship Specialty Start Date End Date Radha Mckeon MD [address] [place] [address] PCP - General 09/23/10 documented as of this encounter
--- OUTSIDE RECORDS SUMMARY | 2024-07-24 17:29 | XMS_ITS | Encounter Summary ---
Author Organization [facility] [place] [address] Care Team Providers Care Jet Worker Name Role Phone Radha Mckeon MD Primary Care Provider [phone] Encounter Details Date Type Department Care Team (Late st Contact Info) Description 12/14/2018 [place] [id number] PA [facility] [place] [address] Social History Tobacco Use Types Packs/Day Years [...] Telephone Encounter - [address] PA - 12/14/2018 11:31 AM EST I called the patient, and was unable to reach him. I did leave a voicemail to call to discuss his results. I saw Malik for a TKA follow up, that was having pain. We ordered labs, he had a negative bone scan in 2012. His labs came back elevated. WBC: 5.7 CRP: 0.8 and ESR of 38. WBC and CRP of are normal, but the ESR is quite elevated. We would recommend an aspiration, and Synovasure to rule out infection, as he is having continued pain. If negative, consider repeat bone scan. Will place orders. documented in this encounter Plan of Treatment Upcoming Encounters Date Type Department Care Team (Late st Contact Info) Description 08/18/2024 11:00 AM EDT Hospital Encounter Non-[place] [address] Arrived 02/22/2025 1:30 PM EDT Appointment [place]ology [place] [address] 02/22/2025 2:30 PM EDT Office Visit [place]ology [place] [address] Ellis Childers MD [facility] [address] HEMATOLOGY [place] [address] Felicita Landa APRN [facility] [address] HEMATOLOGY [place] [address] documented as of this encounter Results * XR Fluoro Guided [...] please contact the number below. ? Narrative 01/02/2019 2:02 PM EST HISTORY: Pain, R/O infection of right knee joint with TKA. RIGHT KNEE JOINT ASPIRATION UNDER FLUOROSCOPY TECHNIQUE: After an extensive conversation with the patient regarding risks and benefits, oral and written consent were obtained.? A pre- procedural time-out was performed, including review of the patient's relevant electronic medical record and allergies, as per [facility] protocol. A pre- procedural time-out was performed as per [facility] protocol. The patient was placed in the [...] were reviewed with patient. Procedure Note Dilcia Jean, [facility] - 01/02/2019 HISTORY: Pain, R/O infection of right knee joint with TKA. RIGHT KNEE JOINT ASPIRATION UNDER FLUOROSCOPY TECHNIQUE: After an extensive conversation with the patient regarding risks andbenefits, oral and written consent were obtained.? A pre- procedural time-out was performed, including review of the patient's relevant electronic medicalrecord and allergies, as per [facility] protocol. A pre- procedural time-out was performed as per [facility] protocol. The patient was placed in the [...] Jauregui MD IMG FLUORO ORDERABL ES * Fungus culture Joint (01/02/2019 1:25 PM EST) Fungus Culture No Fungus isolated [facility] Joint specimen (specimen) 01/02/2019 1:25 PM EST 01/02/2019 1:51 PM EST Narrative Resulting Agency Comment Spec In Lab Sukhjinder Jauregui MD MICROBIOLOGY - GENE RAL ORDERABLES [facility] [place] [address] * Cell Count Body Fluid Knee Joint Fluid (01/02/2019 1:25 PM EST) Body Fluid Source Knee Fl MA [facility] Color, Fld Yellow [facility] Appearance, Fld Hazy [facility] WBC Count, Fld 443 /[facility] Comment: Guideline listed below apply to all body fluids. Differentials on BAL specimens are performed by the Cytology lab section. When Body Fluid WBC count is greater than Zero, a smear is made and scanned. All scan information is correlated with numeric results prior to being released to patients chart. Polymorphonuclear cells BF % 19 % [facility] Comment: Polymorphonuclear cell percent and absolute values may contain Neutrophils, Eosinophils, and Basophils. Body fluid smear will be scanned manually for concordance. Mononuclear cells BF % 81 % [facility] Comment: Mononuclear cell percent and absolute values may contain Lymphocytes and Monocytes. Body fluid smear will be scanned manually for concordance. Polymorphonuclear cells BF ABS 86 /[facility] Comment: Polymorphonuclear cell percent and absolute values may contain Neutrophils, Eosinophils, and Basophils. Body fluid smear will be scanned manually for concordance. Mononuclear cells BF ABS 357 /[facility] Comment: Mononuclear cell percent and absolute values may contain Lymphocytes and Monocytes. Body fluid smear will be scanned manually for concordance. Knee joint synovial fluid (specimen) 01/02/2019 1:25 PM EST 01/02/2019 1:46 PM EST Narrative Resulting Agency Comment Spec In Lab Sukhjinder Jauregui MD BODY FLUIDS AND STO OLS ORDERABLES Performing Organization Address City/State/[facility] Co de Phone Number [facility] [place] [address] documented in this encounter Visit Diagnoses Diagnosis Status post right knee replacement- Primary Status post right knee replacement documented in this encounter Care Teams Jet Worker Relationship Specialty Start Date End Date Radha Mckeon MD [address] [place] [address] PCP - General 09/23/10 documented as of this encounter
--- OUTSIDE RECORDS SUMMARY | 2024-07-24 17:29 | XMS_ITS | Encounter Summary ---
Author Organization [facility] [place] [address] Care Team Providers Care Technician Plant And Maintenance Name Role Phone Radha Mckeon MD Primary Care Provider [phone] Encounter Details Date Type Department Care Team (Late st Contact Info) Description 04/11/2018 11:30 AM EDT Office [place] [address] Devonte Coulter PA [facility] [place] [place] [address] Bilateral impacted cerumen Social History Tobacco Use [...] as of this encounter Progress Notes * Devonte Coulter PA - 04/11/2018 11:30 AM EDT NAME: Malik Machado ENCOUNTER DATE:04/11/2018 Reason for Visit: Cerumen Removal The patient was seen today in audiology for a hearing evaluation and was noted to have excessive cerumen. He was referred to the ENT section for cerumen removal Procedure: The impacted cerumen was obstructing the full view of the tympanic membrane, therefore the ear canals were cleaned of wax and debris with binocular microscopy using small blunt tip curettes, forceps and suctions as needed. After cerumen removal the left and right TMs were intact and healthy appearing. Assessment: Cerumen impaction Recommendations/Plan: He tolerated the cerumen removal well and without complication and was returned to audiology. F/U prn. Devonte Coulter PA-C [place], [place] [address] Office documented in this encounter Plan of Treatment Upcoming Encounters Date Type Department Care Team (Late st Contact Info) Description 08/18/2024 11:00 AM EDT Hospital Encounter Non-Invasive [place]iology [place] [address] Arrived 02/22/2025 1:30 PM EDT Appointment Hematology [place] [address] 02/22/2025 2:30 PM EDT Office Visit [place]ematology [place] [address] Ellis Childers MD [facility] [place] [address] Felicita Landa APRN [facility] [address] [place] [address] documented as of this encounter Visit Diagnoses Diagnosis Bilateral impacted cerumen Impacted cerumen documented in this encounter Care Teams Technician Plant And Maintenance Relationship Specialty Start Date End Date Radha Mckeon MD [address] [place] [address] PCP - General 09/23/10 documented as of this encounter
--- OUTSIDE RECORDS SUMMARY | 2024-07-24 17:29 | XMS_ITS | Encounter Summary ---
Author Organization [facility] [place] [address] Care Team Providers Care Box Turner Name Role Phone Radha Mckeon MD Primary Care Provider Encounter Details Date Type Department Care Team (Late st Contact Info) Description 03/22/2018 Orders Only Cardiology at [address] [address] Diogo Robb PA [facility] [place] [address] Heart palpitations Social History Tobacco Use Types Packs/Day Years [...] as of this encounter Progress Notes * Diogo Robb PA - 03/22/2018 12:02 PM EDT Cardiac Electrophysiology 67yo man with complex hx including SVT, afib s/p ablation, continuing lightheadedness and intermittent sensation of tachycardia without clear correlation with arrythmia. He is currently also under ongoing evaluation by pain management and neurology. As routine ambulatory monitoring, including Zio has not been in place during severe symptomatic events, it would be reasonable to implant an ILR inorder to reliably capture his cardiac rhythm during an event. He is interested in pursuing this. I will ask for him to be scheduled for an ILR implantation at the next opportunity. Provider: ANDREE Shelley Provider#: [id number] Consult attending physician: Britt Benson MD documented in this encounter Plan of Treatment Upcoming Encounters Date Type Department Care Team (Late st Contact Info) Description 08/18/2024 11:00 AM EDT Hospital Encounter Non-Invasive [place] [address] Arrived 02/22/2025 1:30 PM EDT Appointment Hematology and Oncology at [address] 02/22/2025 2:30 PM EDT Office Visit Hematology and Oncology at [address] Ellis Childers MD [facility] DR HEMATOLOGY [place] [address] Felicita Landa APRN [facility] DR HEMATOLOGY [place] [address] documented as of this encounter Procedures Procedure Name Priority Date/Time Associated Diagnosis Comments ELECTROPHYSIOLOGY PROCEDURE Routine 04/04/2018 9:44 AM EDT Heart palpitations documented in this encounter Results * ELECTROPHYSIOLOGY PROCEDURE (04/04/2018 9:44 AM EDT) Anatomical Region Laterality Modality Other Narrative 04/04/2018 9:57 AM EDT Tele Rn: Garrett Benson MD Fellow:none Procedure: loop recorder implantation Patient history: Mr. Machado is a 67 year old man with a history of paroxysmal, symptomatic atrial fibrillation on apixaban and s/p two atrial fibrillation ablations, SVT with EP studies showing no inducible SVT, who presents with frequent episodes of lightheadedness and chest palpitations. EKG and Zio patch rhythm monitors have been unremarkable but have been unsuccessful in capturing symptomatic episodes. Symptoms have continued and he presents for implantation of a loop recorder in order to characterize the heart rhythm during symptoms. Procedure: The patient was brought to the cardiac electrophysiology laboratory in a post-absorptive, fasting state. The patient had received 3 scrubs to the implant area. ??Informed consent was obtained. A peripheral IV was in place. Continuous electrocardiographic, blood pressure, oxygen saturation and CO2 monitoring was initiated. Self-adhesive cardioversion patches were positioned on the chest. The patient was then prepped and draped in the usual sterile fashion. IV antibiotics were administered. The implant area was infiltrated with a 50/50 mixture of lidocaine (2%) and bupivicaine (0.5%). A stab incision was made lateral to the left edge of the sternum at the 4th intercostal space. The implantation tool was inserted at a 45 degree angle and the ILR was implanted. Hemostasis was maintained with manual compression. The ILR was interrogated and adequate sensing characteristics were obtained. The skin was closed using glue. ??A bio-occlusive dressing were applied to the skin. The patient was hemodynamically stable, tolerated the procedure well and was transferred in stable condition. Dr. Benson was present for the participated in the entire procedure. Generator data: Program Strategist Model No. Serial No. Generator [employer] [id number] Sense data: Sensed wave (mV) Ventricle 0.77 Final programming: Mode Lower rate Upper rate Pause Detection 30 bpm @ 4 beats 167 bpm @ 16 beats 3 seconds Medication summary: 2 grams cefazolin IV Conclusions: 1. Successful implantation of a [employer] linq loop recorder for characterization of heart rhythm during palpitations and lightheadedness. 2. Follow up in EP clinic in 10 days. Procedures performed: loop recorder implantation I have read, edited and approve of the above report: Garrett Benson MD Garrett Benson MD EP PROCEDURE ORDERAB LES documented in this encounter Visit Diagnoses Diagnosis Heart palpitations Palpitations Heart palpitations Palpitations documented in this encounter Care Teams Box Turner Relationship Specialty Start Date End Date Radha Mckeon MD [address] [place] [address] PCP - General 09/23/10 documented as of this encounter
--- OUTSIDE RECORDS SUMMARY | 2024-07-24 17:29 | XMS_ITS | Encounter Summary ---
[place] [address] Care Team Providers Care Outbound Sales Consultant Name Role Phone Radha Mckeon MD Primary Care Provider [phone] Encounter Details Date Type Department Care Team (Late st Contact Info) Description 04/20/2018 External Results Audiology at [address] [phone] Mariela Hernandez, [facility] [place] [address] Social History Tobacco Use Types Packs/Day Years [...] AM EDT Hospital Encounter Non-Invasive [place] [address] Arrived 02/22/2025 1:30 PM EDT Appointment Hematology [place] [address] 02/22/2025 2:30 PM EDT Office Visit Hematology [place] [address] Ellis Childers MD [facility] [place] [address] Felicita Landa APRN [facility] DR [place] [address] documented as of this encounter Procedures Procedure Name Priority Date/Time Associated Diagnosis Comments AUDIOLOGY SCAN Routine 04/11/2018 documented in this encounter Results * Scan Doc: Audiology (04/11/2018) Mariela Hernandez AUD MEDIA MGR SCAN EXT O RDR/RSLT documented in this encounter Visit Diagnoses Not on filedocumented in this encounter Care Teams Outbound Sales Consultant Relationship Specialty Start Date End Date Radha Mckeon MD [address] [place] [address] PCP - General 09/23/10 documented as of this encounter
--- OUTSIDE RECORDS SUMMARY | 2024-07-24 17:30 | XMS_ITS | Encounter Summary ---
Author Organization [facility] [place] [address] Care Team Providers Care Environmental Studies Program Director Name Role Phone Radha Mckeon MD Primary Care Provider [phone] Reason for Visit * Reason Comments Dizziness Encounter Details Date Type Department Care Team (Late st Contact Info) Description 12/24/2016 10:00 AM EST Office Visit Cardiology at [address] [address] Diogo Robb PA [facility] [place] [address] Lightheadedness Social History Tobacco Use Types Packs/Day Years [...] Sign Reading Time Taken Comments Blood Pressure 122/80 12/24/2016 10:13 AM EST Pulse 56 12/24/2016 10:13 AM EST regular, radial Temperature - - Respiratory Rate - - Oxygen Saturation 100% 12/24/2016 10: 13 AM EST Inhaled Oxygen Concentration - - Weight 83.5 kg (184 lb) 12/24/2016 10:1 3 AM EST Height 182.2 cm (5' 11.75) 12/24/2016 10:13 AM EST Body Mass Index 25.13 12/24/2016 10:13 AM EST documented in this encounter Progress Notes * Diogo Robb PA - 12/24/2016 10:00 AM EST Subjective: Patient ID: Malik Machado is a 66 y.o. male. HPI 66yo man with complex arrythmia hx. Mr Machado recently underwent repeat afib ablation(11/23/2016). He felt reasonably well since discharge until recently when he developed episodes of lightheadedness and near syncope. He has checked his pulse around the time of the events and feels as though it is neither very fast nor very slow and it is regular. He was discharged continuing on metoprolol 150mg and 120mg of verapamil. He does not take blood pressure at home though these episodes seem not to bepositional. He has known RBBB and LAHB. I elected to try stopping his verapamil in the event his symptoms were related to hypotension(12/17). He did this and has continued to have occasional episodes(4 so far) though he feels as though they have been less severe. He denies syncope. He has been underextreme personal stress related to issues regarding his son. Patient Active Problem List Diagnosis ??? A-fib [...] of periodic palpitations 2015. -- Admitted to [facility] 08/27/16, with A. fib at a [...] Systems Constitutional: Positive for fatigue. Negative for chills, diaphoresis and fever. Respiratory: Positive for chest tightness. Negative for shortness of breath and wheezing. Cardiovascular: Negative for chest pain and leg swelling. Gastrointestinal: Negative for diarrhea, nausea and vomiting. Genitourinary: Negative for dysuria, frequency and hematuria. Neurological: Positive for light-headedness. Negative for syncope. Social History Substance Use Topics ??? Smoking status: Former Smoker Packs/day: 2.00 Years: 16.00 Types: Cigarettes Quit date: 08/13/1983 ??? Smokeless tobacco: Never Used ??? Alcohol use No Current Outpatient Prescriptions Medication Sig Note Dispense Refill ??? levothyroxine (SYNTHROID) 100 mcg Tablet Take 100 mcg by mouth daily. ??? apixaban (ELIQUIS) 5 mg Tablet Take 5 mg by mouth 2 times daily. ??? meTOPROLOL succinate (TOPROL-XL) 100 mg Tablet Sustained Release 24 hr Take 1.5 tablets by mouth daily. 135 tablet PRN ??? omeprazole (PRILOSEC) 40 mg Capsule, Delayed Release(E.C.) Take 20 mg by mouth 2 times daily. 04/02/2016: Received from: External Pharmacy Received Sig: ??? ranitidine (ZANTAC) 150 mg Tablet Take 150 mg by mouth nightly. 04/02/2016: Received from: External Pharmacy Received Sig: ??? SUMAtriptan (IMITREX) 20 mg/actuation [place], Non-Aerosol 1 spray by Nasal route as needed. For migraines 04/02/2016: Received from: External Pharmacy Received Sig: ??? valACYclovir (VALTREX) 500 mg Tablet Take 500 mg by mouth daily. 04/02/2016: Received from: External Pharmacy Received Sig: ??? oxyCODONE (ROXICODONE) 15 mg Tablet Take 15 mg by mouth every 4 hours as needed for Pain. ??? MULTIVITAMIN W-MINERALS/LUTEIN (CENTRUM SILVER ORAL) Take 1 tablet by mouth. ??? Harris-3 Fatty Acids-Vitamin E (FISH OIL) 1,000 mg Cap Take 1,000 mg by mouth 2 times daily. ??? acetaminophen (TYLENOL) 500 mg tablet Take 1,000 mg by mouth as needed. Indications: Headache Disorder, Pain ??? baclofen (LIORESAL) 10 mg tablet Take 10 mg by mouth nightly. ??? simvastatin (ZOCOR) 10 mg tablet Take 10 mg by mouth nightly. ??? zolpidem (AMBIEN) 5 mg tablet Take 5 mg by mouth nightly as needed. 1 to 2 tabs hs prn ??? glucosamine-chondroitin 500-400 mg tablet Objective: Physical Exam Constitutional: He is oriented to person, place, and time. No distress. Neck: No JVD present. Cardiovascular: Normal rate, regular rhythm, normal heart sounds and intact distal pulses. Pulmonary/Chest: Effort normal and breath sounds normal. Musculoskeletal: Normal range of motion. He exhibits no edema. Neurological: He is alert and oriented to person, place, and time. Skin: Skin is warm and dry. He is not diaphoretic. Nursing note and vitals reviewed. 12 lead EK12/24/2016 Sinus bradycardia @ 59; IL 148; QRS 134; QTc 419ms Echocardiogram: 11/24/2016 1. Limited follow up study [...] and systolic function are within normal limits. Afib ablation: 11/23/2016 0) No left atrial thrombus identified; the Doppler flow peak velocity at the neck of the left atrial appendage was 0.2 meters/second. 1) Demonstration of durable electrical isolation of both pulmonary vein antra having been achieved during his initial procedure accomplished in 2012. 2) Acute electrical isolation of the posterior left atrial wall was accomplished (after confirming indications of this region as including fibrillatory substrate); transient acute reconnections were not be elicited chemically at the conclusion of the procedure (stage IV electrical isolation apparent after ~1 hour post-ablation). 3) No stable atrial tachycardia nor atrial flutter was elicited via programmed electrical stimulation from both the right atrium and the coronary sinus (+/- dobutamine infusions). 4) Preserved atrioventricular conduction. 5) No finding of an accessory pathway. 6) The P wave duration pre-ablation was 120 ms during sinus rhythm; the post- ablation sinus rhythm P wave duration also was 120 ms. Assessment and Plan: 66yo man with complex arrythmia hx including afib and SVT(on monitoring but unable to elicit @ EPS), s/p afib ablation and redo afib ablation in November 2016 now with intermittent episodes of profound lightheadedness not clearly associated with either tachycardia or bradycardia. His verapamil was di scontinued as it was thought this might be related to hypotension however the symptoms have not completely resolved. This seems less likely related to recurrence of tachycardia as he is unaware of any related sensation post ablation and there is no objective indication of this. He will remain off verapamil for now though continue metoprolol 150mg daily. A zio patch will be applied n an effort to correlate his symptoms with an arrythmia. Plan EP follow up in 4-6 weeks with 12 lead EKG. Provider: ANDREE Shelley Provider#: [id number] Consult attending physician: Kike Argueta MD documented in this encounter Plan of Treatment Upcoming Encounters Date Type Department Care Team (Late st Contact Info) Description 08/18/2024 11:00 AM EDT Hospital Encounter Non-[place] [address] Arrived 02/22/2025 1:30 PM EDT Appointment Hematology [place] [phone] 02/22/2025 2:30 PM EDT Office Visit Hematology [place] [phone] Ellis Childers MD [facility] DR HEMATOLOGY [place] [address] Felicita Landa APRN [facility] DR HEMATOLOGY [place] [address] documented as of this encounter Procedures Procedure Name Priority Date/Time Associated Diagnosis Comments EKG 12-LEAD Routine 12/24/2016 10:27 AM EST Lightheadedness documented in this encounter Results * Ziopatch (12/24/2016 12:07 PM EST) Anatomical Region Laterality Modality Other Narrative 01/20/2017 5:32 PM EDT Cardiac Electrophysiology Zio Monitor Study Initiated: ??24 December 2016 Duration: ?? 13 days 23 hours (after removal of artifact) Indication: Cardiac arrhythmia Result: The overall sinus rhythm rate range was 47-112/minute, and averaged 65/minute. The predominant underlying rhythm throughout the monitoring period was conducted sinus rhythm with bundle branch block or delayed intraventricular conduction. A diurnal pattern of heart rate variation was not clearly manifest, and overall heart rate variation from day to day was limited. No pauses >3 seconds were seen, and there was no type II second degree or third degree atrioventricular conduction block reported or observed at normal sinus rates. There was a <1.0% burden of isolated ectopic supraventricular beats detected, and rare couplets and triplets were detected as well. There was 1 supraventricular run detected (5 beats with a maximum rate of 176/minute and a mean rate of 157/minute). There was a <1.0% burden of isolated ectopic ventricular beats detected, and no couplets nor triplets were detected. There were 2 ventricular runs detected (the fastest was 15 beats with a maximum rate of 113/minute and a mean rate of 111/minute, and that also was the longest run). The patient wrote in 2 timed diary entries for symptoms (noting dizziness +/- lightheadedness); normal sinus rhythm 62-66/minute was present at the associated times specified. There were 55 patient-triggered events that largely corresponded to normal sinus rhythm, infrequently with supraventricular ectopic beats; in one case there were the 2 ventricular runs (described above) that emerged from sinus rhythm at 82/minute. Conclusion: This monitor study was remarkable for sinus rhythm with limited rate variability. There were 2 nonsustained runs of an accelerated idioventricular rhythm on December 24 at ~1 PM. ____ Interpreted by Sanford Byrd MD, [facility] Diogo Argueta MD CARDIAC SERVICES ORD ERABLES * EKG 12 Lead (12/24/2016 10:27 AM EST) Ventricular rate 59 BPM MUSE SYSTEM Atrial Rate 59 BPM MUSE SYSTEM P-R Interval 148 ms MUSE SYSTEM QRS Duration 134 ms MUSE SYSTEM Q-T Interval 424 ms MUSE SYSTEM QTC Calculated (Bezet) 419 ms MUSE SYSTEM Calculated P [place] 35 degrees MUSE SYSTEM Calculated R [place] -53 degrees MUSE SYSTEM Calculated T [place] -17 degrees MUSE SYSTEM INTERPRETATION Sinus bradycardia Right bundle branch block Left anterior fascicular block Bifascicular block Abnormal ECG When compared with ECG of 24-NOV-2016 14:19, No significant change was found Confirmed by MD AKIRA, FREEDOM ([id number]) on 12/24/2016 1:23:27 PM MUSE SYSTEM 12/24/2016 10:2 7 AM EST 12/24/2016 1:23 PM EST Diogo Argueta MD ECG ORDERABLES MUSE SYSTEM documented in this encounter Visit Diagnoses Diagnosis Lightheadedness Dizziness and giddiness Lightheadedness Dizziness and giddiness documented in this encounter Care Teams Environmental Studies Program Director Relationship Specialty Start Date End Date Radha Mckeon MD [address] [place] [address] PCP - General 09/23/10 documented as of this encounter
--- OUTSIDE RECORDS SUMMARY | 2024-07-24 17:30 | XMS_ITS | Encounter Summary ---
Author Organization [facility] Address [facility] [place] [address] Care Team Providers Care Cornice Maker Name Role Phone Radha Mckeon MD Primary Care Provider [phone] Encounter Details Date Type Department Care Team (Latest Contact Info) Description 12/24/2016 11:31 AM EST - 12/24/2016 11:59 PM [facility] Encounter XRay at [address] [place] [address] Ganga Mi MD [facility] ORTH[place] [address] H/O total knee replacement, right Discharge Disposition: [...] Sig Dispensed Refills Start Date End Date levothyroxine (Synthroid) 100 mcg Tablet Take 100 mcg by mouth daily. baclofen (LIORESAL) 10 mg tablet Take 10 mg by mouth nightly as needed. simvastatin (ZOCOR) 10 mg tablet Take 10 mg by mouth nightly. apixaban (ELIQUIS) 5 mg Tablet Take 5 mg by mouth 2 times daily. 11/09/2019 meTOPROLOL succinate (TOPROL-XL) 100 mg Tablet Sustained Release 24 hr Take 1.5 tablets by mouth daily. 135 tablet 09/10/2016 12/17/2017 omeprazole (PRILOSEC) 40 mg Capsule, Delayed Release(E.C.) Take 20 mg by mouth 2 times daily. 03/17/2016 01/11/2018 ranitidine (ZANTAC) 150 mg Tablet Take 150 mg by mouth nightly. 03/18/2016 12/13/2018 SUMAtriptan (IMITREX) 20 mg/actuation [place], Non-Aerosol 1 spray by Nasal route as needed. For migraines 02/21/2016 01/02/2019 valACYclovir (VALTREX) 500 mg Tablet Take 500 mg by mouth nightly. 01/04/2016 12/02/2020 oxyCODONE (ROXICODONE) 15 mg Tablet Take 7.5 mg by mouth as needed for Pain. 11/17/2019 fish oil-omega-3 fatty acids with vitamin E 1,000 mg Capsule Take 2,000 mg by mouth daily. 05/20/2022 acetaminophen (TYLENOL) 500 mg tabletIndications:head ache disorder,pain Take 1,000 mg by mouth as needed. Indications: Headache Disorder, Pain 11/17/2019 zolpidem (AMBIEN) 5 mg tablet Take 5 mg by mouth nightly as needed. 1 to 2 tabs hs prn 02/28/2018 glucosamine-chondroiti n 500-400 mg tablet 01/13/2011 02/29/20 18 documented as of this encounter Plan of Treatment Upcoming Encounters Date Type Department Care Team (Late st Contact Info) Description 08/18/2024 11:00 AM EDT Hospital Encounter Non-Invasive [place] [address] Arrived 02/22/2025 1:30 PM EDT Appointment Hematology [place] [address] 02/22/2025 2:30 PM EDT Office Visit Hematology [place] [address] Ellis Childers MD [facility] HEMATOLOGY [place] [address] Felicita Landa APRN [facility] HEMATOLOGY [place] [address] documented as of this encounter Procedures Procedure Name Priority Date/Time Associated Diagnosis Comments XR KNEE AP & LAT RIGHT Routine 12/24/2016 11:55 AM EST H/O total knee replacement, right documented in this encounter Results * XR Knee 1-2 Views Right (Generic) (12/24/2016 11:55 AM EST) Anatomical Region Laterality Modality Knee Right Digital Radiogra phy Addenda Addendum by Jesse Mckay MD on 12/24/2016 2:26 PM EST ADDENDUM #1 Findings of subtle sclerotic lines abutting the uncemented prosthesis as a normal variant discussed with orthopedic ordering provider. ORIGINAL REPORT EXAMINATION: XR KNEE 1-2 VIEWS RIGHT (GENERIC) CLINICAL HISTORY: RT TKA TECHNIQUE: Frontal and lateral views of the right knee. COMPARISON: 11/15/2014. FINDINGS: Right knee prosthesis in place. Stable mineralization and alignment. Very subtle lucencies about the distal femoral bony substrate abutting the prosthesis are again identified, stable. No joint effusion or fracture identified. IMPRESSION: Stable examination. Impressions 12/24/2016 12:51 PM EST Stable examination. Narrative 12/24/2016 12:51 PM EST EXAMINATION: XR KNEE 1-2 VIEWS RIGHT (GENERIC) CLINICAL HISTORY: RT TKA TECHNIQUE: Frontal and lateral views of the right knee. COMPARISON: 11/15/2014. FINDINGS: Right knee prosthesis in place. Stable mineralization and alignment. Very subtle lucencies about the distal femoral bony substrate abutting the prosthesis are again identified, stable. No joint effusion or fracture identified. Procedure Note Jesse Mckay MD - 12/24/2016 EXAMINATION: XR KNEE 1-2 VIEWS RIGHT (GENERIC) CLINICAL HISTORY: RT TKA TECHNIQUE: Frontal and lateral views of the right knee. COMPARISON: 11/15/2014. FINDINGS: Right knee prosthesis in place. Stable mineralization and alignment. Verysubtle lucencies about the distal femoral bony substrate abutting the prosthesisare again identified, stable. No joint effusion or fracture identified. IMPRESSION Stable examination. Ganga Mi MD IMG DX ORDERABLES documented in this encounter Visit Diagnoses Diagnosis H/O total knee replacement, right documented in this encounter Care Teams Cornice Maker Relationship Specialty Start Date End Date Radha Mckeon MD [address] [place] [address] PCP - General 09/23/10 documented as of this encounter
--- OUTSIDE RECORDS SUMMARY | 2024-07-24 17:30 | XMS_ITS | Encounter Summary ---
Author Organization [facility] [place] [address] Care Team Providers Care Turret Lathe Operator Name Role Phone Radha Mckeon MD Primary Care Provider [phone] Reason for Visit * Auth/Cert Specialty Diagnoses / Procedures Referred By Becki guillory Referred To Contact Diagnoses AF (atrial fibrillation) PAF Procedures ELECTROPHYSIOLOGY PROCEDURE TRANSESOPHAGEAL ECHO DURING CATH/EP PROCEDURE Referral ID Status Reason Start Date Expiration Date Visits Re quested Visits Authorized [id number] 1 1 Encounter Details Date Type Department Care Team (Late st Contact Info) Description 11/23/2016 7:51 AM EST Anesthesia Event [place] [address] Phoebe Narvaez MD [facility] [place] [address] Anesthesia Record Procedure Summary Procedure Name Responsible Anesthesiologist Anesthesia Start Time Anesthesia Stop Time ELECTROPHYSIOLOGY PROCEDURE Phoebe Narvaez MD 11/23/16 0751 11/23/16 1246 Events Date Time Event Comment 11/23/2016 0718 0751 AN Verify 0751 Start 0754 An Start Data 0801 An Induction 0806 An Intubation 0814 Anesthesia Ready 0931 Quick Note Adenosine 6 mg IVP by EP staff 0932 Quick Note Adenosine 12 mg IVP by EP staff 0936 AN Defib DCCV at 100 J 0944 Quick Note Adenosine 24 mg IVP by EP staff. 1008 ABG Data Arterial Blood Gas result: pH 7.33 pCO2 44.6 pO2 133 FiO2 035 %O2 Sat 99 HCO3 23.7 BE -2 Hb 12.6 Glucose K 4 1108 AN Defib 100 J 1117 AN Defib 1119 Break/Relief In PHOEBE PARMAR OT, MD 1145 Quick Note Adenosine 18 mg by EP staff 1154 Quick Note Adenosine 30 mg IVP by EP staff 1158 Break/Relief Out 1224 Extubation/LMA Out 1233 an stop data 1244 Recovery or ICU Handoff Shannan ent care was transferred to the destination unit staff after review of the patient's medical history, current anesthetic/surgical status and plan, according to the Provider Handoff Checklist. 1246 Stop Meds Name Total Midazolam 2 mg fentaNYL 100 mcg IV Lidocaine 100 mg Propofol 170 mg Rocuronium 100 mg PHENYLephrine 720 mcg ePHEDrine 35 mg Ondansetron 4 mg Neostigmine 1 mg Glycopyrrolate 0.1 mg PHENYLephrine INF 9,795 mcg DOBUTamine INF 89.76 mg Heparin INF 5,008.33 Units Heparin 12,500 Units Esmolol 40 mg Adenosine 24 mg Protamine 30 mg sodium chloride 0.9% infusion 1,000 mL Lactated Ringers 0 mL Lactated Ringers 400 mL * Agents Name O2 Air N2O Sevoflurane (et) * Blood No blood administrations on file. Lines, Drains, and Airways Type Details Placement Removal (RETIRED) Peripheral IV Line - Single Lumen 11/23/16; 704; median cubital vein (antecubital fossa), left; [id number] catheter system; 20 gauge, 18 gauge, 1 in length; heather brunner rn; intradermal injection, appears comfortable, tolerated well, age-appropriate response; removed on previous shift, pt unsure of time; no longer indicated; 11/25/16; 39911/23/16 07 by Christina Saini RN 11/25/16399 by Sulema Palomo RN ETT Mask Ventilation: Ea jose (1); ETT Type: Cuffed; ETT Size: 7.5 mm; Martinez Blade: 2; Notes: Cricoid Pressure; Attempts: 1; Laryngoscopy Grade: 2; ETT Placement Verified By: Auscultation, Capnometry, Visual; Secured at Teeth: 23 cm; Inserted by: Brice; Removal Date: 11/23/16; Removal Time: 1224 11/23/16 0811 by Florence Albright CRNA 11/23/16 1224 by Florence Albright CRNA (RETIRED) Peripheral IV Line - Single Lumen 11/23/16; 0822; metacarpal vein (top of hand), right; 16 gauge; Pouliot; removed by JUSTUS Phoenix; no longer indicated, catheter/device intact; 11/25/16; 1045 11/23/16 0822 by Florence Albright CRNA 11/25/16 1045 by Sulema Palomo RN Arterial Line 11/23/16; 0822; radi al artery, left; 20 gauge; Cowan; Sterile Prep, Sterile Gloves; 11/23/16; 1402 11/23/16 0822 by Florence Albright CRNA 11/23/16 1402 by Shahida Boyer RN Urethral Catheter 11/23/16; 0830; Surg jacinto longer than 2 hours; Close urine output monitoring: critically ill patient; indwelling double lumen catheter; 100% silicone; 14; 1; 10; 10; intraurethral Xylocaine gel; drainage bag to dependent drainage; 11/24/16; 0603 11/23/16 0830 by Toshia Jean RN 11/24/16 0603 by Elke Tovar RN LDA Cath/EP Sheath 11/23/16; 0900; 8 Fr ench (Fr); Right; Femoral 11/23/16 0900 by Toshia Jean RN 11/23/16 1215 by Toshia Jean RN LDA Cath/EP Sheath 11/23/16; 0900; 8 Fr ench (Fr); Right; Femoral 11/23/16 0900 by Toshia Jean RN 11/23/16 1215 by Toshia Jean RN LDA Cath/EP Sheath 11/23/16; 0900; 9 Fr ench (Fr); Left; Femoral 11/23/16 0900 by Toshia Jean RN 11/23/16 1215 by Toshia Jean RN LDA Cath/EP Sheath 11/23/16; 0900; 6.5 Spanish (Fr); Left; Femoral 11/23/16 0900 by Toshia Jean RN 11/23/16 1215 by Toshia Jean RN LDA Cath/EP Sheath 11/23/16; 0900; 8 Fr ench (Fr); Right; Internal jugular 11/23/16 0900 by Toshia Jean RN 11/23/16 1215 by Toshia Jean RN documented in this encounter Social History [...] OR Notes * Anesthesia Postprocedure Evaluation - Phoebe Narvaez MD - 11/23/2016 2:[address] [facility] Department of Anesthesiology Post-procedure Note Patient: Malik Machado Procedure Summary Date Anesthesia Start Anesthesia Stop Room / Location 11/23/16 3741 1246 EP B-LAB ROOM / [facility] EP LABS Procedure Diagnosis Provider Responsible Provider ELECTROPHYSIOLOGY PROCEDURE (N/A ); TRANSESOPHAGEAL ECHO DURING CATH/EP PROCEDURE (N/A ) Persistentatrial fibrillation (PAF) Sanford Byrd MD Pouliot, Ryan C, MD All Anesthesia Providers: Anesthesiologist: Phoebe Narvaez MD CHARTER COACH DRIVER: Florence Cowan CRNA Last (1hr) Vitals: BP 121/74 (11/23/16 1330) Temp Pulse 97 (11/23/16 1330) Resp 14 (11/23/16 1330) SpO2 100 % (11/23/16 1330) Patient Location: PACU/[facility] Level of Consciousness: Awake and Alert Pain Management: Satisfactory Analgesia PONV: None Cardiovascular Status: Hemodynamically Stable Respiratory Status: Supplemental O2 (NC or FM) and Stable Respiratory Status Postoperative Fluid Status: Intravascular EUvolemia Possible Anesthetic Complications: NONE apparent at time of evaluation Final Primary Anesthesia Type: General (The anesthetic type performed was the same as planned.) Comments: * Anesthesia Preprocedure Evaluation - Phoebe Narvaez MD - 11/23/2016 6:51 AM EST Pre-Anesthesia Evaluation for: Malik Machado a 66 y.o. male. Procedure(s): ELECTROPHYSIOLOGY PROCEDURE TRANSESOPHAGEAL ECHO DURING CATH/EP PROCEDURE Patient Active Problem List Diagnosis ??? Thrombocytopenia - chronic ??? Acute pleuropericarditis s/p atrial fibrillation ablation ??? Odynophagia s/p Atrial fibrillation and ELOY ??? S/P knee replacement SURGERY DATE: 01/14/2010 [...] Half batch of quick set cement. ??? A-fib 1) Recurrent AF -S/P cardioversions x 3 (09/2005, 01/2006. 07/2007) -AF that has resolved spontaneously (12/2006, etc) -Started on dofetilide 500mcg BID - several episodes/month lasting seconds to minutes of sensation of tachcycardia, sometimes associated with lightheadedness; unable to correlate to specific tachyarrythmia by holter or EKG for a long time; increasing frequency and severity late 2011 - repeat event monitoring 10/2012 revealed afib and AT/perhaps mid-RP tachycardia 2) Echo 09/09/2007 - normal; LVEF 60% 3 ) Nuclear stress 12/12/2007 Christiano, 6:45, 8.10 METS, 62-104HR, LVEF 63% 4) Acutely successful PVI ablation 12/12/2012(procedure complicated by carto problem, completed withNavx) 5) Post ablation pleuropericarditis 6) Increased frequency of periodic palpitations 2015 7) August 2016, recurrence of sustained atrial fibrillation requiring urgent cardioversion(Geovany); started Eliquis ??? Hypertension ??? RBBB (right bundle branch block with left anterior fascicular block) ??? Lumbar radiculopathy ??? Chronic back pain greater than 3 months duration On methadone and baclofen ??? Knee pain Past Medical History Diagnosis Date ??? Chronic back pain greater than 3 months duration ??? Thrombocytopenia - chronic 12/16/2012 ??? Thrombocytopenia - chronic 12/16/2012 Past Surgical History Procedure Laterality Date ??? Created by interface Entered not Verified Procedure Date: 11/11/2010 ??? Created by interface FACET DENERATION RADIOFREQUENCY Procedure Date: 02/05/2003 ??? Created by interface FACET DENERATION RADIOFREQUENCY-EA ADDL LEVEL Procedure Date: 02/05/2003 ??? Created by interface FACET DENERATION RADIOFREQUENCY-EA ADDL LEVEL Procedure Date: 02/05/2003 ??? Created by interface FACET LUMBAR BLOCK Procedure Date: 11/20/2002 ??? Created by interface FACET LUMBAR BLOCK-EA ADD'L LEVEL Procedure Date: 11/20/2002 ??? Created by interface FACET LUMBAR BLOCK-EA ADD'L LEVEL Procedure Date: 11/20/2002 ??? Created by interface FLUROSCOPY USE(PAIN) Procedure Date: 02/05/2003 ??? Created by interface FLUROSCOPY USE(PAIN) Procedure Date: 11/20/2002 ??? Created by interface TOTAL KNEE ARTHROPLASTY / RIGHT/ROTATING PLATFORM CURVED Procedure Date: 01/14/2010 Social History Substance Use Topics ??? Smoking status: Former Smoker Packs/day: 2.00 Years: 16.00 Types: Cigarettes Quit date: 08/13/1983 ??? Smokeless tobacco: Never Used ??? Alcohol use No History Drug Use No Allergies Allergen Reactions ??? Amitriptyline Hcl Palpitations Medications: MAR and/or home medications have been reviewed. Physical Exam: There were no vitals filed for this visit. There is no height or weight on file to calculate BMI. Airway Assessment: Mallampati: II TM distance: >3 FB Neck ROM: full Cardiovascular Assessment: Pulmonary Assessment: Dental Assessment: (+) upper dentures and lower dentures Misc Assessment: IV access: Peripheral line Anesthesia Plan: ASA 2 general, with a(n) intravenous induction 66 y/o man with a PMH of past smoking, low back pain, thrombocytopenia, HTN, HLD, GERD, RBBB and A-fib s/p ablation in 2012 (complicated by pericarditis) who has had recurrence of PAF, now for EPS/repeat ablation. Prior GA in 2012, mask with OPA, grade 1 DL. TTE from 04/2016 with EF 64%, no RWMAs, no HD significant valvular disease. Denied problems with GA in the past. METS >4. Appropriate NPO status. Plan for GA, ETT, arterial line. Region - Other Informed Consent: Anesthetic plan and risks discussed with patient. Plan discussed with CHARTER COACH DRIVER. PAT Staff Note documented in this encounter Plan of Treatment Upcoming Encounters Date Type Department Care Team (Late st Contact Info) Description 08/18/2024 11:00 AM EDT Hospital Encounter Non-[place] [address] Arrived 02/22/2025 1:30 PM EDT Appointment Hematology [place] [address] 02/22/2025 2:30 PM EDT Office Visit Hematology [place] [address] Ellis Childers MD [facility] [address] HEMATOLOGY [place] [address] Felicita Landa APRN [facility] [address] HEMATOLOGY [place] [address] documented as of this encounter Visit Diagnoses Not on filedocumented in this encounter Administered Medications Inactive Administered Medications - up to 3 most recent administrations Medication Order MAR Action Action Date Dose Rate Site adenosine (ADENOCARD) injection PRN, Starting on Wed11/23/16 at 1110, Until Wed11/23/16 at 1247, Anesthesia Intra-op, Routine Given 11/23/2016 11:10 AM EST 12 mg Given 11/23/2016 9:44 AM EST 12 mg DOBUTamine 2,000 mcg/mL (standard ADULT & Yudith greater than 20kg) CONTINUOUS PRN, Starting on Wed11/23/16 at 0937, Until Wed11/23/16 at 1247, Anesthesia Intra-op Restarted 11/23/2016 11:49 AM EST 40 mcg/kg/min 97.9 mL/hr Restarted 11/23/2016 11:17 AM EST 20 mcg/kg/min 49 mL/hr Rate/Dose Change 11/23/2016 9:40 AM EST 40 mcg/kg/min 97.9 mL/hr ePHEDrine 5 mg/mL multi-dose injection PRN, Starting on Wed11/23/16 at 0908, Until Wed11/23/16 at 1247, Anesthesia Intra-op, Routine Given 11/23/2016 10:10 AM EST 10 mg Given 11/23/2016 10:02 AM EST 10 mg Given 11/23/2016 10:01 AM EST 5 mg esmolol (BREVIBLOC) injection PRN, Starting on Wed11/23/16 at 1001, Until Wed11/23/16 at 1247, Anesthesia Intra-op, Routine Given 11/23/2016 12:11 PM EST 10 mg Given 11/23/2016 12:03 PM EST 10 mg Given 11/23/2016 10:02 AM EST 10 mg fentaNYL 50 mcg/mL multi-dose injection PRN, Starting on Wed11/23/16 at 0801, Until Wed11/23/16 at 1247, Pain, Anesthesia Intra-op, Routine Given 11/23/2016 8:01 AM EST 100 mcg glycopyrrolate (ROBINUL) multi-dose injection PRN, Starting on Wed11/23/16 at 1207, Until Wed11/23/16 at 1247, Anesthesia Intra-op, Routine Given 11/23/2016 12:07 PM EST 0.1 mg heparin (porcine) injection PRN, Starting on Wed11/23/16 at 0958, Until Wed11/23/16 at 1247, Anesthesia Intra-op, Routine Given 11/23/2016 10:21 AM EST 2,500 Units Given 11/23/2016 10:03 AM EST 2,500 Units Given 11/23/2016 9:58 AM EST 7,500 Units heparin 25,000 units in dextrose 5% 500 mL infusion CONTINUOUS PRN, Starting on Wed11/23/16 at 0952, Until Wed11/23/16 at 1247, Anesthesia Intra-op, Routine Rate/Dose Change 11/23/2016 10:21 AM EST 2,500 Units/hr 50 mL/hr New Bag 11/23/2016 9:52 AM EST 2,000 Units/hr 40 mL/hr lactated ringers infusion CONTINUOUS PRN, Starting on Wed11/23/16 at 0819, Until Wed11/23/16 at 1247, Anesthesia Intra-op New Bag 11/23/2016 8:19 AM EST lactated ringers infusion CONTINUOUS PRN, Starting on Wed11/23/16 at 0911, Until Wed11/23/16 at 1247, Anesthesia Intra-op New Bag 11/23/2016 9:11 AM EST lidocaine (PF) (XYLOCAINE) 100 mg/5 mL (2 %) injection PRN, Starting on Wed11/23/16 at 0801, Until Wed11/23/16 at 1247, Anesthesia Intra-op, Routine Given 11/23/2016 8:01 AM EST 100 mg midazolam (PF) (VERSED) 1 mg/mL multi-dose injection PRN, Starting on Wed11/23/16 at 0751, Until Wed11/23/16 at 1247, Sleep, Anesthesia Intra-op, Routine Given 11/23/2016 7:51 AM EST 2 mg neostigmine (PROSTIGMINE) multi-dose injection PRN, Starting on Wed11/23/16 at 1207, Until Wed11/23/16 at 1247, Anesthesia Intra-op, Routine Given 11/23/2016 12:07 PM EST 1 mg ondansetron (ZOFRAN) injection PRN, Starting on Wed11/23/16 at 1221, Until Wed11/23/16 at 1247, Nausea, Anesthesia Intra-op, Routine Given 11/23/2016 12:21 PM EST 4 mg PHENYLephrine (JORDY-SYNEPHRINE) 20 mg in sodium chloride 250 mL (standard ADULT & Yudith greater than 20kg) infusion CONTINUOUS PRN, Starting on Wed11/23/16 at 0857, Until Wed11/23/16 at 1247, Anesthesia Intra-op, Routine Rate/Dose Change 11/23/2016 12:03 PM EST 30 mcg/min 22.5 mL/hr Rate/Dose Change 11/23/2016 11:32 AM EST 50 mcg/min 37.5 m L/hr Rate/Dose Change 11/23/2016 11:30 AM EST 40 mcg/min 30 mL/ hr PHENYLephrine HCl in NS (PF) (JORDY-SYNEPHRINE) 0.8 mg/10 mL (80 mcg/mL) multi-dose injection Syrg PRN, Starting on Wed11/23/16 at 0831, Until Wed11/23/16 at 1247, Anesthesia Intra-op, Routine Given 11/23/2016 9:54 AM EST 80 mcg Given 11/23/2016 9:53 AM EST 80 mcg Given 11/23/2016 8:56 AM EST 160 mcg propofol (DIPRIVAN) 10 mg/mL bolus injection (Anesthesia) PRN, Starting on Wed11/23/16 at 0801, Until Wed11/23/16 at 1247, Anesthesia Intra-op Given 11/23/2016 8:01 AM EST 170 mg protamine injection PRN, Starting on Wed11/23/16 at 1203, Until Wed11/23/16 at 1247, Anesthesia Intra-op, Routine Given 11/23/2016 12:03 PM EST 30 mg rocuronium (ZEMURON) multi-dose injection PRN, Starting on Wed11/23/16 at 0801, Until Wed11/23/16 at 1247, Anesthesia Intra-op, Routine Given 11/23/2016 8:58 AM EST 50 mg Given 11/23/2016 8:01 AM EST 50 mg documented in this encounter Care Teams Turret Lathe Operator Relationship Specialty Start Date End Date Radha Mckeon MD [address] [place] [address] PCP - General 09/23/10 documented as of this encounter
--- OUTSIDE RECORDS SUMMARY | 2024-07-24 17:30 | XMS_ITS | Encounter Summary ---
Author Organization [facility] [address] Care Team Providers Care Patent Engineer Name Role Phone Radha Mckeon MD Primary Care Provider Reason for Visit * Reason Comments Headache Encounter Details Date Type Department Care Team (Late st Contact Info) Description 01/16/2017 7:13 PM EDT - 01/16/2017 8:40 PM EDT [place] [address] Jia John MD [facility] [place] [address] Headache, unspecified headache type (Primary Dx); Difficulty sleeping Discharge Disposition: Home Social History Tobacco Use [...] Sign Reading Time Taken Comments Blood Pressure 192/88 01/16/2017 8:40 PM EDT Luz ED Resident aware Pulse 62 01/16/2017 8:40 PM EDT Temperature 36.7 ??C (98.1 ??F) 01/16/2017 6 :42 PM EDT Respiratory Rate 18 01/16/2017 8:40 PM EDT Oxygen Saturation 100% 01/16/2017 6:4 2 PM EDT Inhaled Oxygen Concentration - - Weight 84.4 kg (186 lb) 01/16/2017 6:42 PM EDT Height 182.9 cm (6') 01/16/2017 6:42 PM EDT Body Mass Index 25.23 01/16/2017 6:42 PM EDT documented in this encounter Discharge Instructions * Discharge Instructions* Argenis Carrera MD - 01/16/2017 8:24 PM EDT Images from the original note were not included. You were [place] [facility] [place] with [place] management. Please take benadryl as needed at night tmiothy. [facility] Headache: Care Instructions Your Care Instructions Headaches have many possible causes. Most headaches aren't a sign of a more serious problem, and they will get better on their own. Home treatment may help you feel better faster. The doctor has checked you carefully, but problems can develop later. If you notice any problems ornew symptoms, get medical treatment right away. Follow-up care is a boyd part of your treatment and safety. Be sure to make and go to all appointments, and call your doctor if you are having problems. It's also a good idea to know your test resultsand keep a list of the medicines you take. How can you care for yourself at home? ?? Do not drive if you have taken a prescription pain medicine. ?? Rest in a quiet, dark room until your headache is gone. Close your eyes and try to relax or go to sleep. Don't watch TV or read. ?? Put a cold, moist cloth or cold pack on the painful area for 10 to 20 minutes at a time. Put a thin cloth between the cold pack and your skin. ?? Use a warm, moist towel or a heating pad set on low to relax tight shoulder and neck muscles. ?? Have someone gently massage your neck and shoulders. ?? Take pain medicines exactly as directed. ?? If the doctor gave you a prescription medicine for pain, take it as prescribed. ?? If you are not taking a prescription pain medicine, ask your doctor if you can take an gazw-lif-yatzwke medicine. ?? Be careful not to take pain medicine more often than the instructions allow, because you may getworse or more frequent headaches when the medicine wears off. ?? Do not ignore new symptoms that occur with a headache, such as a fever, weakness or numbness, vision changes, or confusion. These may be signs of a more serious problem. To prevent headaches ?? Keep a headache diary so you can figure out what triggers your headaches. Avoiding triggers may help you prevent headaches. Record when each headache began, how long it lasted, and what the pain was like (throbbing, aching, stabbing, or dull). Write down any other symptoms you had with the headache, such as nausea, flashing lights or dark spots, or sensitivity to bright light or loud noise. Note if the headache occurred near your period. List anything that might have triggered the headache, such as certain foods (chocolate, cheese, wine) or odors, smoke, bright light, stress, or lack of sleep. ?? Find healthy ways to deal with stress. Headaches are most common during or right after stressfultimes. Take time to relax before and after you do something that has caused a headache in the past. ?? Try to keep your muscles relaxed by keeping good posture. Check your jaw, face, neck, and shoulder muscles for tension, and try relaxing them. When sitting at a desk, change positions often, and stretch for 30 seconds each hour. ?? Get plenty of sleep and exercise. ?? Eat regularly and well. Long periods without food can trigger a headache. ?? Treat yourself to a massage. Some people find that regular massages are very helpful in relieving tension. ?? Limit caffeine by not drinking too much coffee, tea, or soda. But don't quit caffeine suddenly, because that can also give you headaches. ?? Reduce eyestrain from computers by blinking frequently and looking away from the computer screenevery so often. Make sure you have proper eyewear and that your monitor is set up properly, about an arm's length away. ?? Seek help if you have depression or anxiety. Your headaches may be linked to these conditions. Treatment can both prevent headaches and help with symptoms of anxiety or depression. When should you call for help? Call 911 anytime you think you may need emergency care. For example, call if: ?? You have signs of a stroke. These may include: ?? Sudden numbness, paralysis, or weakness in your face, arm, or leg, especially on only one side of your body. ?? Sudden vision changes. ?? Sudden trouble speaking. ?? Sudden confusion or trouble understanding simple statements. ?? Sudden problems with walking or balance. ?? A sudden, severe headache that is different from past headaches. Call your doctor now or seek immediate medical care if: ?? You have a new or worse headache. ?? Your headache gets much worse. Where can you learn more? Visit our [employer] information library at [email or web address] You can also view health information on [employer]box, your personal patient account. Log in or sign up today. Enter M271 in the search box to learn more about Headache: Care Instructions. ?? [id number] [employer]. Care instructions adapted under license by [facility]. This care instruction is for use with your licensed healthcare professional. If you have questions about a medical condition or this instruction, always ask your healthcare professional. [employer] disclaims any warranty or liability for your use of this information. Content Version: 11.0.502700; Current as of: December 20, 2015 * Attachments The following attachments cannot be sent through Care Everywhere. * SLEEP HEALTH: GENERAL INFO (KAZAKH) documented in this encounter Medications at Time of Discharge Medication Sig Dispensed Refills Start Date End Date acetaminophen (Tylenol) 500 mg tablet as needed. 01/16/2017 levothyroxine (Synthroid) 100 mcg Tablet Take 100 [...] nightly. 03/18/2016 12/13/2018 SUMAtriptan (IMITREX) 20 mg/actuation Gueydan, Non-Aerosol 1 spray by Nasal route as [...] 02/29/20 18 documented as of this encounter ED Notes * Jia John MD - 01/16/2017 7:59 PM EDT ATTESTATION NOTE I saw this patient with resident physician Debi. Please see their note for full details. HPI notable for 66 YOM with history of migraines, had CT last week in [place] which was normal (per pt).Pt presents today with a chief complaint that is difficult to determine. Pt is quite tangential with his history and keeps looping back around to the dogs that he is currently caring for because his adult grandson was unable to do so. Also states that he has had chronic headaches that do not appearto be worse today, has had a prior work up for this as well. When asked what specifically can we help you with today, patient replies Im hoping to reset my neurologic system so that I can sleep. Pt then admits that he has been having some trouble sleeping due to the chronic headaches. He stateshe has tried ambien but it hasn't helped and he is afraid to increase the dose. Denies CP, sob, palpitations, any other complaints. BP 179/87 (Patient Position: Sitting) Pulse 70 Temp 36.7 ??C (98.1 ??F) (Oral) Resp 18 Ht 182.9 cm (6') Wt 84.4 kg (186 lb) SpO2 100% BMI 25.23 kg/m2 Exam notable for General: Well appearing, NAD Heent: NCAT, mmm Neck: no meningismus CV: RRR, no m/r/g, Pum: CTAB, no w/r/r Abd: Soft, non tender, non distended Skin: warm and dry Neuro: GCS 15, NIEVES x 4, CN 2-12 in tact, 5/5 strength all 4 ext, LTSIT. Psych: normal affect, normal eye contact Please see resident physician exam for further details A/P 66 YOM with difficult to determine chief complaint, multiple ongoing chronic symptoms appears to behaving some difficulty with sleep. Pt has tried ambien without great effect. We recommended that hetry a low dose of benadryl instead which may also help with his chronic headache. Also recommended follow up with PCP. DC to home. MD Alvaro Choi Jessica L, MD 01/17/17 1448 * Argenis Carrera MD - 01/16/2017 7:45 PM EDT CC: BAILEY, sleep issues HPI Malik Machado is a 66 y.o. male with PMHx of recurrent afib s/p ablation on Eliquis, chronic back pain, migraine BAILEY who presents to the Emergency Department with varying complaints, mostly of difficulty sleeping and tingling in his toes. Pt states he has had migraine BAILEY in the past for the past one month and has been seen by multiple providers for this. Pt was seen most recently one week prior in [place] and at that time had a negative workup including CT scan of the head. Pt states he does not have BAILEY at this time but is basically concerned because he has been unable to sleep. Review of Systems: Review of Systems Constitutional: Negative for chills, diaphoresis and fever. HENT: Negative for congestion, rhinorrhea and sore throat. Eyes: Negative for visual disturbance. Respiratory: Negative for cough and shortness of breath. Cardiovascular: Negative for chest pain and palpitations. Gastrointestinal: Negative for abdominal pain, diarrhea, nausea and vomiting. Genitourinary: Negative for dysuria and flank pain. Musculoskeletal: Negative for back pain, neck pain and neck stiffness. Skin: Negative for rash. Neurological: Positive for headaches. Negative for numbness. Psychiatric/Behavioral: Positive for sleep disturbance. Negative for agitation and suicidal ideas. Patient Vitals for the past 24 hrs: BP Temp Temp src Pulse Resp SpO2 Height Weight 01/16/17 2040 192/88 - - 62 18 - - - 01/16/17 1842 179/87 36.7 ??C (98.1 ??F) Oral 70 18 100 % 182.9 cm (6') 84.4 kg (186 lb) Physical Exam: Physical Exam Constitutional: He is oriented to person, place, and time. He appears well- developed and well-nourished. No distress. Well appearing man wearing sunglasses and fully clothed in NAD HENT: Head: Normocephalic and atraumatic. Eyes: Pupils are equal, round, and reactive to light. Neck: Normal range of motion. Neck supple. No thyromegaly present. Cardiovascular: Normal rate, regular rhythm and normal heart sounds. Exam reveals no gallop and no friction rub. No murmur heard. Pulmonary/Chest: Effort normal and breath sounds normal. No respiratory distress. He has no wheezes. He exhibits no tenderness. Abdominal: Soft. Bowel sounds are normal. He exhibits no distension. There is no tenderness. Musculoskeletal: Normal range of motion. Neurological: He is alert and oriented to person, place, and time. Skin: Skin is warm and dry. No rash noted. Psychiatric: He has a normal mood and affect. Nursing note and vitals reviewed. ED Course: - Patient was evaluated and discussed with Dr. John - Medications, allergies and past medical history reviewed. -I have reviewed labs to be notable for: -I have reviewed the EKG and found: RBBB, no change from prior, rate 67, no ST/T wave changes -MDM: Pt is a well appearing male, poor historian who presents ultimately with concern for difficulty sleeping. He states upon multiple questioning about how we best can help him/his chief complaint that he has trouble sleeping. He has a known migraine history at least for the past one month and has had reported a recent CT scan in [place] for the same that was reported as normal. Pt appears slightly tangential and demented and was a difficult historian. Pt not complaining of any vision changes, nausea, recent head trauma, recent URI, CP, SOB or any other worrisome complaints. EKG with no significant findings or changes. I discussed utility of lab work and further workup in this patient and patient declined. I also discussed use of benadryl at night and pt will try this tonight to help him sleep. Ptwith all questions answered and in good condition to discharge to home with PCP follow up. Assessment and Plan: Assessment: 66 y.o. male with difficulty sleeping Return precautions were verbally discussed with the patient and written in discharge instructions, including fevers, shortness of breath, abdominal pain, nausea/vomiting, or other concerns. The patient expressed understanding that he could come back to the ED at any time and agreed to the follow-upplan. Plan: - Benadryl qhs - Follow up with PCP PRN - Return precautions given and patient verbalized understanding. Argenis Carrera MD Resident 01/16/17 8518 Associated attestation - Jia John MD - 01/17/2017 2:49 PM EDT ED ATTENDING ATTESTATION NOTE The patient was seen in conjunction with Dr. Carrera the resident physician. I have independently performed the boyd portions of the history and physical exam. I have reviewed the nursing notes, vitalsigns, and all diagnostic studies personally including labs, imaging studies and EKGs. I have discussed the details of the case with the resident and agree with the assessment and plan as described in the resident note above unless noted otherwise below. Please see my separately filed attestation note. documented in this encounter Plan of Treatment Upcoming Encounters Date Type Department Care Team (Late Contact Info) Description 08/18/2024 11:00 AM EDT Hospital Encounter [place] [address] Arrived 02/22/2025 1:30 PM EDT Appointment Hematology [place] [address] 02/22/2025 2:30 PM EDT Office Visit Hematology [place] [address] Ellis Childers MD [facility] [place] [address] Felicita Landa APRN [facility] [place] [address] documented as of this encounter Procedures Procedure Name Priority Date/Time Associated Diagnosis Comments EKG 12-LEAD STAT 01/16/2017 7:13 PM EDT documented in this encounter Results * EKG 12 Lead (01/16/2017 7:13 PM EDT) Ventricular rate 67 BPM MUSE SYSTEM Atrial Rate 67 BPM MUSE SYSTEM P-R Interval 164 ms MUSE SYSTEM QRS Duration 148 ms MUSE SYSTEM Q-T Interval 410 ms MUSE SYSTEM QTC Calculated (Bezet) 433 ms MUSE SYSTEM Calculated P [place] 70 degrees MUSE SYSTEM Calculated R [place] -56 degrees MUSE SYSTEM Calculated T [place] 8 degrees MUSE SYSTEM INTERPRETATION Normal sinus rhythm Right bundle branch block Left anterior fascicular block Bifascicular block Abnormal ECG When compared with ECG of 24-DEC-2016 10:27, No significant change was found Confirmed by MD Jewell, Omar Hebert ([id number]) on 01/17/2017 3:16:28 PM MUSE SYSTEM 01/16/2017 7:13 PM EDT 01/17/2017 3:16 PM EDT Jia John MD ECG ORDERABLES [employer] [facility] documented in this encounter Visit Diagnoses Diagnosis Headache, unspecified headache type- Primary Difficulty sleeping Sleep disturbance, unspecified documented in this encounter Care Teams Patent Engineer Relationship Specialty Start Date End Date Radha Mckeon MD [address] [place] [address] PCP - General 09/23/10 documented as of this encounter
--- OUTSIDE RECORDS SUMMARY | 2024-07-24 17:30 | XMS_ITS | Encounter Summary ---
Author Organization [facility] [place] [address] Care Team Providers Care Meal Attendant Name Role Phone Radha Mckeon MD Primary Care Provider [phone] Encounter Details Date Type Department Care Team (Late st Contact Info) Description 07/21/2017 Orders Only Cardiology at [address] [phone] Diogo Robb PA [facility] [place] [address] Status post ablation of atrial fibrillation Social History Tobacco Use Types [...] AM EDT Hospital Encounter Non-Invasive [place] [address] Arrived 02/22/2025 1:30 PM EDT Appointment H[place]ology [place] [phone] 02/22/2025 2:30 PM EDT Office Visit [place]ology [place] [phone] Ellis Childers MD [facility] DR HEMATOLOGY AND ONCOLOGY [place], [place] [id number] Felicita Landa APRN [facility] [place] [address] documented as of this encounter Results * Ziopatch (12/02/2017 3:22 PM EST) Anatomical Region Laterality Modality Other Narrative 12/30/2017 5:23 PM EST [facility] ? Zio Patch? Ambulatory Cardiac Event Monitor Report Duration of recording ? 10 days, 7 hours (12/02/2017 until 12/12/2017) Summary Data Predominant rhythm ? sinus rhythm with first degree AV block Minimum sinus rate was 48 bpm, this was sinus bradycardia at 552 am on 12/10/2017 Maximum sinus rate was 114 bpm, this is sinus tachycardia at 851 bpm on 12/10/2017 Average heart rate 65 bpm Atrial fibrillation was not seen Ectopic beats rare atrial premature beats (APC? s) rare ventricular premature beats (VPC's) There were 3 episodes of supraventricular tachycardia - average heart rate 135 bpm The fastest and longest episode was 6 beats at 145 bpm, lasting for 2.3 seconds Triggered and Patient Diary Events There were 4 triggered and 0 patient diary events: The triggered events correlate with sinus rhythm and heart rates ranging from 62 bpm to 67 bpm Conclusion(s): ?? 1) The predominant rhythm is sinus rhythm, occasionally with first degree AV block 2) Brief episodes of non sustained supraventricular tachycardia 3) The 4 triggered events correlate with sinus rhythm 4) No atrial fibrillation is seen during this recording Christina Lopez APRN [facility] S ORDERABLES documented in this encounter Visit Diagnoses Diagnosis Status post ablation of atrial fibrillation Other postprocedural status documented in this encounter Care Teams Meal Attendant Relationship Specialty Start Date End Date Radha Mckeon MD [address] [place] [address] PCP - General 09/23/10 documented as of this encounter
--- OUTSIDE RECORDS SUMMARY | 2024-07-24 17:30 | XMS_ITS | Encounter Summary ---
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 Based on what information we have now, it does not appear that your symptoms are from an abnormal heart beat. To further confirm this since your symptoms happen even more frequently I recommend we get another Zio patch. If we cannot correlate your symptomatic with arrhythmia, I will recommend further follow-up with Neurology and/or ENT documented in this encounter Progress Notes * Salomón Gan MD - 12/02/2017 1:40 PM EST Cardiac Electrophysiology Follow-up Subjective: Patient ID: Malik Machado is a 67 y.o. male. HPI 67yo man with h/o PAF s/p [address] Byrd (last 11/23/2016). He has had a complicated history with periodic episodes of lightheadedness and near syncope. He has checked his pulse around the time of the events and feels as though it is neither very fast nor very slow and it is regular. He is currently on metoprolol 150mg and 120mg of verapamil. He does not take blood pressure at home though these episodes seem not to be positional. He has known RBBB and LAHB. Diogo Robb elected to try stopping his verapamil in the event his symptoms were related to hypotension(2/). He did this and has continued to have occasional episodes(4) though he feels as though they were less severe.He denies syncope. He has been under extreme personal stress related to issues regarding his [...] chills, diaphoresis and fever. Respiratory: Negative for chest tightness and shortness of breath. Cardiovascular: Positive for palpitations. Negative for chest pain and leg swelling. Gastrointestinal: Negative for diarrhea, nausea and vomiting. Neurological: Negative for syncope, speech difficulty and light-headedness. Current Outpatient Prescriptions Medication Sig Dispense Refill ??? gabapentin (NEURONTIN) 300 mg Capsule ??? QUEtiapine (SEROQUEL) 25 mg Tablet ??? verapamil (CALAN-SR) 120 mg Tablet Sustained [...] Take 150 mg by mouth nightly. ??? SUMAtriptan (IMITREX) 20 mg/actuation [place], Non-Aerosol 1 spray by Nasal route as needed. For migraines ??? valACYclovir (VALTREX) 500 mg Tablet Take 500 mg by mouth daily. ??? oxyCODONE (ROXICODONE) 15 mg Tablet Take 15 mg by mouth every 4 hours as needed for Pain. ??? MULTIVITAMIN W-MINERALS/LUTEIN (CENTRUM SILVER ORAL) Take 1 tablet by mouth. ??? [place]-3 Fatty Acids-Vitamin E (FISH OIL) 1,000 mg Cap Take 1,000 mg by mouth 2 times daily. ??? acetaminophen (TYLENOL) 500 mg tablet Take 1,000 mg by mouth as needed. Indications: Headache Disorder, Pain ??? baclofen (LIORESAL) 10 mg tablet Take 10 mg by mouth nightly. ??? simvastatin (ZOCOR) 10 mg tablet Take 10 mg by mouth nightly. ??? glucosamine-chondroitin 500-400 mg tablet ??? zolpidem (AMBIEN) 5 mg tablet Take 5 mg by mouth nightly as needed. 1 to 2 tabs hs prn Objective: Physical Exam Constitutional: He is oriented to person, place, and time. No distress. Neck: No JVD present. Cardiovascular: Normal rate, regular rhythm and normal heart sounds. Pulmonary/Chest: Effort normal. Musculoskeletal: Normal range of motion. He exhibits no edema. Neurological: He is alert and oriented to person, place, and time. Skin: Skin is warm and dry. He is not diaphoretic. Nursing note and vitals reviewed. 12 lead EK08/17/2017 Sinus bradycardia @ 53; CA 168; QRS 140; QTc 414ms; RBBB and LAFB Echocardiogram: 11/24/2016 1. Limited follow up study [...] be related to hypotension however the symptoms did not completely resolve. He was subsequently restarted on verapamil 120mg daily. This seems less likely related to recurrence of tachycardia as he is unaware of any related sensation post ablation and there isno objective indication of this. Per history, the patient states that his symptoms are more frequent than they were at time of Zio 2017. As such, to definitively rule in or out whether his current symptoms are from an arrhythmia, we agreed to a repeat 14-day Zio study. If it is negative, or symptoms ??reported symptoms are not associated with cardiac dysrhythmia, further work-up should be directed elsewhere, eg w/ neurology or ENT or ? Vertigo CC: ANDREE Shelley MD, PhD, [facility] Cardiac Electrophysiology ?? documented in this encounter Plan of Treatment Upcoming Encounters Date Type Department Care Team (Late st Contact Info) Description 08/18/2024 11:00 AM EDT Hospital Encounter Non-[place] [phone] Arrived 02/22/2025 1:30 PM EDT Appointment H[place]ology [place] [address] 02/22/2025 2:30 PM EDT Office Visit Hematology [place] [address] Ellis Childers MD [facility] DR HEMATOLOGY [place] [address] Felicita Landa APRN [facility] HEMATOLOGY [place] [address] documented as of this encounter Procedures Procedure Name Priority Date/Time Associated Diagnosis Comments ZIOPATCH Routine 12/02/2017 3:22 PM EST Status post ablation of atrial fibrillation documented in this encounter Results * Ziopatch (12/02/2017 3:22 PM EST) Anatomical Region Laterality Modality Other Narrative 12/30/2017 5:23 PM EST [facility] ? Zio Patch? 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
--- OUTSIDE RECORDS SUMMARY | 2024-07-24 17:30 | XMS_ITS | Encounter Summary ---
Author Organization [place] [address] Care Team Providers Care Program Engagement Director Name Role Phone Radha Mckeon MD Primary Care Provider [phone] Reason for Visit * Reason Onset Date Comments Medication Refill 05/12/2017 Encounter Details Date Type Department Care Team (Late st Contact Info) Description 05/12/2017 Refill Cardiology at [address] [address] Diogo Robb, PA [facility] [place] [address] Medication Refill Social History Tobacco Use Types [...] Miscellaneous Notes * Telephone Encounter - Florecita Miguel RN - 05/12/2017 9:46 AM EDT Pt states he has been taking 120 mg Verapamil caps.daily. Ran out and needs renewal. Requests #[phone]. documented in this encounter Plan of Treatment Upcoming Encounters Date Type Department Care Team (Late st Contact Info) Description 08/18/2024 11:00 AM EDT Hospital Encounter Non-Invasive [place] [address] Arrived 02/22/2025 1:30 PM EDT Appointment Hematology [place] [address] 02/22/2025 2:30 PM EDT Office Visit Hematology [place] [phone] Ellis Childers MD [facility] DR HEMATOLOGY [place] [address] Felicita Landa APRN [facility] DR HEMATOLOGY [place] [address] documented as of this encounter Visit Diagnoses Not on filedocumented in this encounter Care Teams Program Engagement Director Relationship Specialty Start Date End Date Radha Mckeon MD [address] [place] [address] PCP - General 09/23/10 documented as of this encounter
--- OUTSIDE RECORDS SUMMARY | 2024-07-24 17:30 | XMS_ITS | Encounter Summary ---
[place] [address] Care Team Providers Care Production Line Name Role Phone Radha Mckeon MD Primary Care Provider [phone] Reason for Visit * Reason Onset Date Comments Medication Refill 07/27/2017 Encounter Details Date Type Department Care Team (Late st Contact Info) Description 07/27/2017 Refill Cardiology at [address] [address] Diogo Robb PA [facility] [address] Medication Refill Social History Tobacco Use Types [...] EDT Hospital Encounter Non-Invasive Card[place] [address] Arrived 02/22/2025 1:30 PM EDT Appointment H[place]ology [place] [address] 02/22/2025 2:30 PM EDT Office Visit Hematology and Oncology at [place] [phone] Ellis Childers MD [facility] [address] [place] [address] Felicita Landa APRN [facility] DR HEMATOLOGY [place] [address] documented as of this encounter Visit Diagnoses Not on filedocumented in this encounter Care Teams Production Line Relationship Specialty Start Date End Date Radha Mckeon MD [address] [place] [address] PCP - General 09/23/10 documented as of this encounter
--- OUTSIDE RECORDS SUMMARY | 2024-07-24 17:30 | XMS_ITS | Encounter Summary ---
Author Organization [facility] [place] [address] Care Team Providers Care Sales Technician Home Theater Name Role Phone Radha Mckeon MD Primary Care Provider [phone] Reason for Visit * Reason Onset Date Comments Other 02/15/2017 please call with results from Zio patch Encounter Details Date Type Department Care Team (Late st Contact Info) Description 02/15/2017 Telephone Cardiology at [address] [address] Diogo Robb PA [facility] [place] [address] Other (please call with results from Zio patch) Social History Tobacco Use Types Packs/Day Years [...] * Telephone Encounter - Jesica Avery - 02/15/2017 9:52 AM EDT Patient would like you to call him with the results of his Zio patch. You can try his home and his cell and it is okay to leave a message on either or both phones. Thank you documented in this encounter Plan of Treatment Upcoming Encounters Date Type Department Care Team (Late st Contact Info) Description 08/18/2024 11:00 AM EDT Hospital Encounter Non-Invasive [place] [address] Arrived 02/22/2025 1:30 PM EDT Appointment Hematology and Oncology at [place] [address] 02/22/2025 2:30 PM EDT Office Visit Hematology and Oncology at [place] [address] Ellis Childers MD [facility] [address] [place] [address] Felicita Landa APRN [facility] [address] [place] [address] documented as of this encounter Visit Diagnoses Not on filedocumented in this encounter Care Teams Sales Technician Home Theater Relationship Specialty Start Date End Date Radha Mckeon MD [address] [place] [address] PCP - General 09/23/10 documented as of this encounter
--- OUTSIDE RECORDS SUMMARY | 2024-07-24 17:30 | XMS_ITS | Encounter Summary ---
Author Organization [facility] [place] [address] Care Team Providers Care Cell Attendant Name Role Phone Radha Mckeon MD Primary Care Provider [phone] Encounter Details Date Type Department Care Team (Late st Contact Info) Description 04/06/2017 1:00 PM EDT Office Visit [place] [address] [facility] [place] [address] Chronic back pain, causing disability Social History Tobacco Use Types Packs/Day Years [...] as of this encounter Progress Notes * Saurabh Royal MD - 04/06/2017 1:00 PM EDT Mr. Machado presents today having had a pretty difficult last couple of months. His 38-year-old daughter from a combination of alcohol abuse and Tylenol abuse. Both of his foster children were taken out of the home and he has a couple of court dates set up to try to get his youngest back. He and his have both been hospitalized since I last saw them because primarily of depression related to the of their daughter, but he is struggling to get back on his feet and he tells me that he is 80% back on his feet. 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 He stays fit, although not as fit as he used to be, but he is going to start getting that back together again as well. He is a candidate for medical marijuana. I would not treat him with opioids nor does he want to be treated with opioids. He wants to hold off on the cannabis for now, but he knows that he can come back to the office and discuss this with another provided since he lives in the [facility] in the future if necessary. We spent 25 minutes together today, 15 minutes of which was spent in supportive counseling regarding his arachnoiditis and recent horrible life events. documented in this encounter Plan of Treatment Upcoming Encounters Date Type Department Care Team (Late st Contact Info) Description 08/18/2024 11:00 AM EDT Hospital Encounter Non-[place] [address] Arrived 02/22/2025 1:30 PM EDT Appointment Hematology [place] [address] 02/22/2025 2:30 PM EDT Office Visit Hematology [place] [phone] [facility] HEMATOLOGY [place] [address] [facility] HEMATOLOGY [place] [address] documented as of this encounter Visit Diagnoses Diagnosis Chronic back pain, causing disability Backache, unspecified documented in this encounter Care Teams Cell Attendant Relationship Specialty Start Date End Date Radha Mckeon MD [address] [place] [address] PCP - General 09/23/10 documented as of this encounter
--- OUTSIDE RECORDS SUMMARY | 2024-07-24 17:30 | XMS_ITS | Encounter Summary ---
Author Organization [facility] [place] [address] Care Team Providers Care Room Service Manager Name Role Phone Radha Mckeon MD Primary Care Provider [phone] Encounter Details Date Type Department Care Team (Latest Contact Info) Description 12/24/2016 10:30 AM EST - 12/24/2016 11:30 AM [facility] Hospital Encounter [place] [address] Diogo Argueta MD [facility] [place] [address] Lightheadedness Discharge Disposition: Home Social History Tobacco Use [...] nightly. 03/18/2016 12/13/2018 SUMAtriptan (IMITREX) 20 mg/actuation [place], Non-Aerosol 1 spray by Nasal route as [...] AM EDT Hospital Encounter Non-[place] [address] Arrived 02/22/2025 1:30 PM EDT Appointment Hematology [place] [address] 02/22/2025 2:30 PM EDT Office Visit Hematology [place] [address] Ellis Childers MD [facility] DR HEMATOLOGY [place] [address] Felicita Landa APRN [facility] HEMATOLOGY [place] [address] documented as of this encounter Procedures Procedure Name Priority Date/Time Associated Diagnosis Comments ZIOPATCH Routine 12/24/2016 12:07 PM EST Lightheadedness documented in this encounter Results [...] PM. ____ Interpreted by Sanford Byrd MD, [facility] Diogo Argueta MD CARDIAC SERVICES ORD ERABLES documented in this encounter Visit Diagnoses Diagnosis Lightheadedness Dizziness and giddiness documented in this encounter Care Teams Room Service Manager Relationship Specialty Start Date End Date Radha Mckeon MD [address] [place] [address] PCP - General 09/23/10 documented as of this encounter
--- OUTSIDE RECORDS SUMMARY | 2024-07-24 17:30 | XMS_ITS | Encounter Summary ---
Author Organization [facility] [place] [address] Care Team Providers Care Director Health Name Role Phone Radha Mckeon MD Primary Care Provider [phone] Reason for Visit * Reason Onset Date Comments Procedure 10/19/2016 not to shank rander Encounter Details Date Type Department Care Team ([facility] st Contact Info) Description 10/19/2016 Telephone Cardiology at [address] [phone] Katharina Florez Procedure (not to shank rander) Social History Tobacco Use Types Packs/Day Years [...] encounter Miscellaneous Notes * Telephone Encounter - Katharina Florez S - 10/19/2016 12:26 PM EST I typed the following up and mailed to [facility] [address] [place] [id number] This was put on [facility] letter head October 19, 2016 REF: Malik Machado 54 Attn: Judge Moran Mr Malik Machado has a procedure scheduled at [facility] on November 23. Barbara needs to be here at 6:00am and this is a full day procedure. If you have any questions please feel free to contact me. Sincerely, Katharina Florez Electrophysiology Procedure Coordinator [phone] (P) documented in this encounter Plan of Treatment Upcoming Encounters Date Type Department Care Team (Late st Contact Info) Description 08/18/2024 11:00 AM EDT Hospital Encounter Non-[place]vasive [place] [address] Arrived 02/22/2025 1:30 PM EDT Appointment Hematology and Oncology at [place] [address] 02/22/2025 2:30 PM EDT Office Visit Hematology and Oncology at [place] [address] Ellis Childers MD [facility] [place] [address] Felciita Landa APRN [facility] [place] [address] documented as of this encounter Visit Diagnoses Not on filedocumented in this encounter Care Teams Director Health Relationship Specialty Start Date End Date Radha Mckeon MD [address] [place] [address] PCP - General 09/23/10 documented as of this encounter
--- OUTSIDE RECORDS SUMMARY | 2024-07-24 17:30 | XMS_ITS | Encounter Summary ---
Author Organization [facility] [place] [address] Care Team Providers Care Dry Chain Operator Name Role Phone Radha Mckeon MD Primary Care Provider [phone] Encounter Details Date Type Department Care Team (Late st Contact Info) Description 11/26/2016 Telephone Cardiology at [address] [phone] Arden Padgett MD [facility] [place] [address] Social History Tobacco Use Types Packs/Day Years [...] encounter Miscellaneous Notes * Telephone Encounter - Arden Padgett - 11/26/2016 9:48 PM EST Called by Mr. Carter carrera. He notes that he has simply been feeling weak and fatigued all evening. He noted that he is febrile to 101.7. Denies any chest pain or any symptoms similar to his priorpericarditis from his previous ablation. He also notes that he has a productive cough. Ddx includesnoncardiac infection (influenza vs sinusitis vs pna etc) vs pericarditis vs atrio- esophageal fistula. I adivsed that he present to his local ED (he lives 90 miles away) for further evaluation. I called and advised [facility] as to initial diagnostic workup. Arden Padgett MD 11/26/2016 10:21 PM documented in this encounter Plan of Treatment Upcoming Encounters Date Type Department Care Team (Late st Contact Info) Description 08/18/2024 11:00 AM EDT Hospital Encounter [place] [address] Arrived 02/22/2025 1:30 PM EDT Appointment Hematology and Oncology at [place] [address] 02/22/2025 2:30 PM EDT Office Visit Hematology and Oncology at [place] [address] Ellis Childers MD [facility] DR HEMATOLOGY [place] [address] Felicita Landa APRN [facility] [address] [place] [address] documented as of this encounter Visit Diagnoses Not on filedocumented in this encounter Care Teams Dry Chain Operator Relationship Specialty Start Date End Date Radha Mckeon MD [address] [place] [address] PCP - General 09/23/10 documented as of this encounter
--- OUTSIDE RECORDS SUMMARY | 2024-07-24 17:30 | XMS_ITS | Encounter Summary ---
Author Organization [facility] [place] [address] Care Team Providers Care Addressing Machine Operator Name Role Phone Radha Mckeon MD Primary Care Provider Reason for Visit * Consultation (Routine) - Closed Specialty Diagnoses / Procedures Referred By Becki guillory Referred To Contact Pain Management Diagnoses Low back pain Procedures Low bck pain Radha Mckeon MD [address] [place] [address] [facility] [address] [place] [phone] Referral ID Status Reason Start Date Expiration Date Visits Re quested Visits Authorized [id number] Closed 12/03/2016 12/03/2017 1 1 Encounter Details Date Type Department Care Team (Late st Contact Info) Description 12/24/2016 2:00 PM EST Office [place] [address] Saurabh Royal MD [facility] [place] [address] Chronic back pain, causing disability Social History [...] Progress Notes * Saurabh Royal MD - 12/24/2016 2:00 PM EST Mr. Machado presents today to discuss his chronic low back and other pain problems. He saw Dr. 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 He has also been having terrible problems with his migraine headaches, having four migraines today and a dozen nearly in the last three or four days. They are not really responding to his usual treatments. He is under an enormous amount of stress in that his 20-year-old son has been using heroine, his has been having addiction problems as well. He does not want to take any addicting medications and is trying to keep as active as he can and as happy as he can raising his kids and try to deal with all of the illnesses in his family. I do not really have anything new to offer him. He is a very nice man. If he changes his man about opioids or cannabis, he would be an excellent candidate I think for each. I am happy to see him back again at any time. We spent 20 minutes together today, 15 of which was spent with my reviewing options that he has essentially already exhausted. documented in this encounter Plan of Treatment Upcoming Encounters Date Type Department Care Team (Late st Contact Info) Description 08/18/2024 11:00 AM EDT Hospital Encounter Non-[place] [address] Arrived 02/22/2025 1:30 PM EDT Appointment Hematology [place] [address] 02/22/2025 2:30 PM EDT Office Visit Hematology [place] [address] Ellis Childers MD [facility] DR HEMATOLOGY [place] [address] Felicita Landa APRN [facility] DR HEMATOLOGY [place] [address] documented as of this encounter Visit Diagnoses Diagnosis Chronic back pain, causing disability Backache, unspecified documented in this encounter Care Teams Addressing Machine Operator Relationship Specialty Start Date End Date Radha Mckeon [address] [place] [address] PCP - General 09/23/10 documented as of this encounter
--- OUTSIDE RECORDS SUMMARY | 2024-07-24 17:30 | XMS_ITS | Encounter Summary ---
Author Organization [facility] [place] [address] Care Team Providers Care Manager [place] Name Role Phone Radha Mckeon MD Primary Care Provider [phone] Reason for Visit * Reason Comments Aftercare Of Tj[facility] Encounter Details Date Type Department Care Team (Late st Contact Info) Description 12/24/2016 1:30 PM EST Office [place] [address] Ganga Mi MD [facility] DR OR[place]OPAEDIC [place] [address] S/P total knee replacement not using cement, [...] as of this encounter Progress Notes * Ganga Mi - 12/24/2016 1:30 PM EST Mr. Machado is a 66-year-old gentleman who is now 5 years status post right total knee replacement, specifically a posterior cruciate-retaining porous rotating platform. His back is still the issue and he literally lives with a pain scale of 8 out of 10. He says he does not have the pain that he had before the surgery in his knee, but he does have a burning-like sensation (neuropathic) which I can only explain on the basis of his spine because his knee itself on physical exam is really benign. ( A history of three spine surgeries, dural leaks, pedicle screws violating the theca and mylographic dyes lend credance to this hypothesis) . He can get to full extension. He has good quad tone. Flexion is to about 95 degrees. There is no swelling. In fact, there were no areas of tenderness and his patella tracks well. His x-rays continue to show satisfactory position of the implant, nothing to suggest stress shielding implant failure, loosening or malposition. I neglected to mention he can get out of the chair without use of his arms, but his gait is antalgic but because of his back, not because of his leg. A difficult situation, but I think that the knee has functioned well for him and hopefully it will continue to do so. Admonitions about good foot care and dental prophylaxis are emphasized. He should be seen in about 2 years' time for followup with x-rays or earlier p.r.n. documented in this encounter Plan of Treatment Upcoming Encounters Date Type Department Care Team (Late st Contact Info) Description 08/18/2024 11:00 AM EDT Hospital Encounter Non[place] [address] Arrived 02/22/2025 1:30 PM EDT Appointment Hematology [place] [address] 02/22/2025 2:30 PM EDT Office Visit Hematology [place] [address] Ellis Childers MD [facility] [place] [address] Felicita Landa APRN [facility] [place] [address] Scheduled Orders Name Type Priority Associated Diagnoses Orde r Schedule XR Knee 4 or more views Right Imaging Routine S/P total knee replacement not using cement, right Expected: 12/24/2017 (Approximate), Expires: 06/25/2018 documented as of this encounter Visit Diagnoses Diagnosis S/P total knee replacement not using cement, right documented in this encounter Care Teams Manager [place] Relationship Specialty Start Date End Date Radha Mckeon MD [address] [place] [address] PCP - General 09/23/10 documented as of this encounter
--- OUTSIDE RECORDS SUMMARY | 2024-07-24 17:30 | XMS_ITS | Encounter Summary ---
Author Organization [facility] Address [facility] [place] [address] Care Team Providers Care Tax Services Professional Name Role Phone Radha Mckeon MD Primary Care Provider Reason for Referral * Physical Therapy (Routine) - Specialty Diagnoses / Procedures Referred By Becki guillory Referred To Contact Physical Therapy Diagnoses Migraine with vertigo Ekle Samuel APRN [facility] [place] [address] Referral ID Status Reason Start Date Expiration Date V isits Requested Visits Authorized [id number] Evaluate and Treat 01/12/2018 07/11/2018 12 12 Reason for Visit * Reason Comments Dizziness I've been having di zzy spells, I do have phlegm that I'm coughing up. I'm just trying to rule out why I'm having dizzy spells * Consultation (Routine) - Closed Specialty Diagnoses / Procedures Referred By Becki guillory Referred To Contact Otolaryngology Diagnoses chronic sinusitis Radha Mckeon MD [address] [place] [address] [facility] [address] [place] [phone] Referral ID Status Reason Start Date Expiration Date V isits Requested Visits Authorized [id number] Closed Consult, Test & Treat Connection Center 12/30/2017 12/30/2018 1 1 Encounter Details Date Type Department Care Team (Late st Contact Info) Description 01/11/2018 3:00 PM EDT Office [place] [address] Elke Samuel APRN [facility] [place] [address] Migraine with vertigo; Sinus congestion Social History Tobacco Use Types Packs/Day Years [...] - Inhaled Oxygen Concentration - - Weight 83.9 kg (185 lb) 01/11/2018 2:56 PM EDT Height 182.9 cm (6') 01/11/2018 2:56 PM EDT Body Mass Index 25.09 01/11/2018 2:56 PM EDT documented in this encounter Progress Notes * Elke Samuel, ISSAC - 01/11/2018 3:00 PM EDT Date of Visit: 01/11/2018 Location of Visit: Otolaryngology Clinic, [facility] Patient: Malik Machado ([id number]; 1950) Primary Care Provider: Radha Mckeon MD Referring Provider: Radha Mckeon Reason for Visit: Malik is a 67 y.o. male seen at the request of Radha Mckeon in consultation forepisodic vertigo, nasal congestion, throat congestion/phlegm. History of Present Illness: Malik has episodic vertigo which started over the last several months. -Followed for migraine headaches by local Neurologist, also has ocular migraines. -frequent nasal congestion/obstruction, bloody crusting (on eliquis), feels that smell sensation isreduced -phlegm in throat, feels that voice is not as strong (sings) H/o dizziness that is episodic with recurrent frequency that is frequent. The dizziness is not positional. Attacks last up to 15 minutes and occur with the following frequency 3-4 times weekly. Theirbalance is normal in between dizziness events. Dizzy in sudden spells with breaks in between yes Thereis not a recent h/o trauma or viral infection. 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 The following associated symptoms are present when dizzy (yes/no): Spinning in circles when not moving no World spinning around you yes Nausea no Head is swimming no Light sensitivity yes, visual scotoma/flashing lights Sound/sound change sensitivity no Thedo not experience aural symptoms of tinnitus/heairng loss/fullness that is not temporally related to the dizziness. The following has/has not occurred: Loss of consciousness/fainting/blacking out no Severe prolonged headache with nausea/photophobia yes Personal or family history of migraine yes Difficulty walking in the dark no Dizziness symptoms described as (yes/no): Dizzy when sitting or standing still yes Dizzy when rolling over in bed no Dizzy when turning or moving head no Dizzy when bent over or reaching down no Dizziness is better/worse/no change when: Certain positions n/a During menses (for women) n/a Rapid head movements possibly Other symptoms (yes/no/constant/episodic): Double, blurred or total loss of vision no, visual kaleidoscope as well as flashing lights, may or may not occur with headache Numbness or weakness of face or extremities no Incoordination no Confusion no Speech or swallowing difficulty no Past Medical History: Past Medical History: Diagnosis Date ??? Chronic back pain greater than 3 months duration ??? Migraine ??? Thrombocytopenia - chronic 12/16/2012 ??? Thrombocytopenia - chronic 12/16/2012 Past Surgical History: Past Surgical History: Procedure Laterality Date ??? [...] / RIGHT/ROTATING PLATFORM CURVED Procedure Date: 01/14/2010 Medications: Current Outpatient Prescriptions on File Prior to Visit Medication Sig Dispense Refill ??? meTOPROLOL succinate (TOPROL-XL) 100 mg Tablet Sustained Release 24 hr Take 1.5 tablets by mouth daily. 135 tablet PRN ??? gabapentin (NEURONTIN) 300 mg Capsule nightly. ??? QUEtiapine (SEROQUEL) 25 mg Tablet 25 mg nightly. ??? verapamil (CALAN-SR) 120 mg Tablet Sustained Release Take 1 tablet by mouth daily. 90 tablet 3 ??? levothyroxine (SYNTHROID) 100 mcg Tablet Take 100 mcg by mouth daily. ??? apixaban (ELIQUIS) 5 mg Tablet Take 5 mg by mouth 2 times daily. ??? ranitidine (ZANTAC) 150 mg Tablet Take 150 mg by mouth nightly. ??? SUMAtriptan (IMITREX) 20 mg/actuation Draper, Non-Aerosol 1 spray by Nasal route as needed. For migraines ??? valACYclovir (VALTREX) 500 mg Tablet Take 500 mg by mouth daily. ??? oxyCODONE (ROXICODONE) 15 mg Tablet Take 15 mg by mouth every 4 hours as needed for Pain. ??? MULTIVITAMIN W-MINERALS/LUTEIN (CENTRUM SILVER ORAL) Take 1 tablet by mouth. ??? Br[place]on-3 Fatty Acids-Vitamin E (FISH OIL) 1,000 mg [...] hs prn ??? glucosamine-chondroitin 500-400 mg tablet No current facility-administered medications on file prior to visit. Allergies: Amitriptyline hcl Social History: Lives in [place] [address]*, Tobacco: former smoker, 32 pack year history, quit 1982 Alcohol: No Family History: Family History Problem Relation Age of Onset ??? Heart Disease Mother ??? Heart Disease Father ??? Cancer Brother 58 panceratic Review of Systems: Pertinent positive findings discussed above. No other findings on review of constitutional, visual, cardiovascular, musculoskeletal, neurological, or psychiatric systems. Physical Examination: Vitals: Height 182.9 cm (6'), weight 83.9 kg (185 lb). General: No acute distress. Face: Full and symmetric facial movement. No dysmorphic facial features. Eyes: Periocular structures and conjunctiva healthy without lesions. Pupils are equal, round, and reactive to light. Extraocular movement is full and intact. No dysconjugate gaze. No evidence of nystagmus. Ears: Auricles symmetric without lesions. External auditory canals clear. Normal EAC and TM w/ excellent mobility and no middle ear disease. fistula test negative, normal landmarks Neck: Full pain-free ROM. Upper trapezius, SCM nontender to palpation. Soft, supple, without significant lymphadenopathy. Thyroid gland without masses or asymmetry. Trachea midline without deviation. Corneal reflexes are intact bilaterally (CNV) Sharp sensation intact aqnd symmetric bilaterally in all trigeminal braches Masseter strength is equal and symmetrical (CN V) TMJ is non tender Facial Nerve Function is strong and symmetric (CN VII)House Brackmann Grade I/) Hitselberger Test - no hypaesthesia in either EAC (CNVII) Palate is midline and voice is strong (CN IX & X) Tongue is midline (CN XII) Shoulder elevation is strong and symmetrical (XI) Ocular Exam: No spontaneous or gaze evoked nystagmus, EOMI with smooth pursuit Eyes Closed Rhomberg - stable Tandem Rhomberg - stable for 10 - 20 sec Tandem Gait - able to walk 5 ft with pivot and return with minimal or no errors Fukuda Test - stable with left drift Alia-Hallpike Position Right - No dizziness or Nystagmus Alia-Hallpike Position Left - No dizziness or Nystagmus Finger to pt's nose testing (self with eyes closed) is normal Finger to nose test (pt and examiner) - normal no dysmetria or past pointing Heel to Flowers - Normal bilaterally Rapid alternating movements - normal, no diadokokinesis Procedure Note: Flexible Fiberoptic Laryngoscopy: Topical anesthetic and decongestant applied to the nasal cavity. Patient tolerated the procedure well without any complications. Findings: Nasal cavity : anterior examination reveals septum (midline), turbinates edematous,no evidence of neoplastic process such as polyps, no mucopurulent drainage, copious mucoid drainage and bloody crusting throughout anterior nasopharynx. Nasopharynx: clear without masses or lesions. Eustachian tube openings normal. Oropharynx: normal without masses or lesions. Larynx: base of tongue normal, valleculae is clear, epiglottis normal shape and contour without erythema or edema, vocal cords normal without evidence of irritation, discrete lesion or paralysis. Post-cricoid region normal. Piriform sinuses are clear. Imaging Studies None (Personally reviewed by me) Audiograms (Personally reviewed by me) Normal hearing with exception of a 15 dB asymmetry at 3 and 8000 Hz. Tympanogram is normal. Impression: This patient has a complicated and severe type of dizziness that is resulting in a significant effect on their quality of life. The causes of their dizziness are multiple and determining a specific diagnosis can be complicated. In some patients a definitive diagnosis remains unclear. Possible etiologies in this case include: Migrainous vertigo, cervicogenic vertigo, central cause others that this is least likely. I have explained to the patient that migraine induced vertigo may present with or without a headache at the time and may occur some years after more classic migraine headaches have abated. Vertigo episodes in the absence of aural symptoms or focal auditory-vestibular findings in a patient is highlysuggestive of a migraine pathology. The treatment may include prophylactic meds or abortive medications and I have recommended a Neurology referral to discuss medical management. We have discussed migraine triggers and dietary changes today and literature was provided for them to review at home. I have explained to cervical disease is a common cause of dizziness, especially dizziness that has a non-specific positional component. I have explained that the vestibular nuclei receive input from proprioceptive nerve fibers in the neck that relay somatosensory information. These symptoms can be caused by either chronic diseases of the neck (e.g. degenerative disk disease) or acute injury (e.g.whiplash injury). Often times these symptoms are aggravated by positional changes or head movement.In addition, there may be discomfort in the neck, shoulders, or back of the head with the dizzinesssymptoms. The absence of increased or unilateral hearing loss, normal VNG, and non-specific CDP results also support this diagnosis. The principle treatment of this condition generally involves physical therapy to improve the mobility of the neck and vestibular therapy. We also discussed his notable sinus congestion and crusting, and that the first- line treatment for this would be nasal saline rinses with a course of Flonase. Instructions were given and written handouts were also provided. We will reevaluate this in about 8 weeks time, and I discussed with the patient the timeframe for improvement both of his nasal symptoms as well as the vertigo symptoms. Should he fail to have improvement with a course of vestibular rehab, which we will refer him to [facility] for, we will proceed with an MRI of the brain with and without contrast. Recommendations: Vestibular rehab. RTC 8 weeks for repeat laryngoscopy. documented in this encounter Plan of Treatment Upcoming Encounters Date Type Department Care Team (Late st Contact Info) Description 08/18/2024 11:00 AM EDT Hospital Encounter [place] [address] Arrived 02/22/2025 1:30 PM EDT Appointment Hematology [place] [address] 02/22/2025 2:30 PM EDT Office Visit Hematology [place] [address] Ellis Childers MD [facility] [address] [place] [address] Felicita Landa APRN [facility] [place] [address] Scheduled Referrals Name Type Priority Associated Diagnoses Orde r Schedule Referral to Physical Therapy Outpatient Referral Routine Migraine with vertigo Ordered: 01/12/2018 documented as of this encounter Visit Diagnoses Diagnosis Migraine with vertigo Migraine with aura, without mention of intractable migraine without mention of status migrainosus Sinus congestion Other diseases of nasal cavity and sinuses documented in this encounter Care Teams Tax Services Professional Relationship Specialty Start Date End Date Radha Mckeon MD [address] [place] [address] PCP - General 09/23/10 documented as of this encounter
--- OUTSIDE RECORDS SUMMARY | 2024-07-24 17:30 | XMS_ITS | Encounter Summary ---
Author Organization [facility] [place] [address] Care Team Providers Care Poultry Cutter Name Role Phone Radha Mckeon MD Primary Care Provider Reason for Visit * Consultation (Routine) - Closed Specialty Diagnoses / Procedures Referred By Becki guillory Referred To Contact Otolaryngology Diagnoses Dizziness Radha Mckeon MD [address] [place] [address] [facility] Otolaryngology [address] [place] [phone] Referral ID Status Reason Start Date Expiration Date V isits Requested Visits Authorized [id number] Closed Consult, Test & Treat Connection Center 11/04/2017 11/04/2018 1 1 Encounter Details Date Type Department Care Team (Latest Contact Info) Description 12/02/2017 12:45 PM EST Office Visit Audiology at [address] [address] Naz Pryor AUD [facility] [place] [address] Sensorineural hearing loss, unilateral; Tinnitus of both ears Social History Tobacco Use Types Packs/Day Years [...] as of this encounter Progress Notes * Naz Pryor AUD - 12/02/2017 1:26 [place] [address] (phone), (fax) Malik Machado was seen on 12/02/2017 for an audiologic evaluation. Please refer to the scanned audiogram under Procedures for findings, impressions, and recommendations. documented in this encounter Plan of Treatment Upcoming Encounters Date Type Department Care Team (Late st Contact Info) Description 08/18/2024 11:00 AM EDT Hospital Encounter Non-Invasive [place] [address] Arrived 02/22/2025 1:30 PM EDT Appointment Hematology [place] [address] 02/22/2025 2:30 PM EDT Office Visit Hematology [place] [phone] Ellis Childers MD [facility] DR [place] [address] Felicita Landa APRN [facility] DR [place] [address] documented as of this encounter Procedures Procedure Name Priority Date/Time Associated Diagnosis Comments COMPREHENSIVE HEARING TEST Routine 12/02/2017 12:28 PM EST documented in this encounter Results * Comprehensive hearing test (12/02/2017 12:28 PM EST) 12/02/2017 12:2 8 PM EST Narrative [facility] - 12/02/2017 12:28 PM EST - Return to PCP to determine next steps. ??Could consider ENT consult due to dizziness, asymmetric hearing, and nose/throat complaints. - Continued use of hearing protection. Procedure Note Unknown - 12/02/2017 - Return to PCP to determine next steps. Could consider ENT consult dueto dizziness, asymmetric hearing, and nose/throat complaints. - Continued use of hearing protection. Unknown AUD[facility]OLOGY [facility] documented in this encounter Visit Diagnoses Diagnosis Sensorineural hearing loss, unilateral Tinnitus of both ears Unspecified tinnitus documented in this encounter Care Teams Poultry Cutter Relationship Specialty Start Date End Date Radha Mckeon MD [address] [place] [address] PCP - General 09/23/10 documented as of this encounter
--- OUTSIDE RECORDS SUMMARY | 2024-07-24 17:30 | XMS_ITS | Encounter Summary ---
Author Organization [place] [address] Care Team Providers Care Medical Radiation Tech Name Role Phone Radha Mckeon MD Primary Care Provider [phone] Encounter Details Date Type Department Care Team (Late st Contact Info) Description 12/17/2016 Telephone Cardiology at [address] [phone] Diogo Robb PA [facility] [place] [address] Social History Tobacco Use Types Packs/Day Years [...] encounter Miscellaneous Notes * Telephone Encounter - Diogo Robb PA - 12/17/2016 1:01 PM EST Cardiac Electrophysiology Mr Machado recently underwent repeat afib ablation. He felt reasonably well since discharge until [...] positional. He has known [facility] and [facility]. We discussed possible etiologies and treatments. He will be here next week as he already has coordinated appointments on . In the meantime he will stop his Verapamil in order to determine effect on symptoms. He will call if symptoms worsen or improve. documented in this encounter Plan of Treatment Upcoming Encounters Date Type Department Care Team (Late st Contact Info) Description 08/18/2024 11:00 AM EDT Hospital Encounter Non-[place] [address] Arrived 02/22/2025 1:30 PM EDT Appointment Hematology and Oncology at [address] 02/22/2025 2:30 PM EDT Office Visit Hematology and Oncology at [place] [address] Ellis Childers MD [facility] DR HEMATOLOGY [place] [address] Felicita Landa APRN [facility] DR HEMATOLOGY [place] [address] documented as of this encounter Visit Diagnoses Not on filedocumented in this encounter Care Teams Medical Radiation Tech Relationship Specialty Start Date End Date Radha Mckeon MD [address] [place] [address] PCP - General 09/23/10 documented as of this encounter
--- OUTSIDE RECORDS SUMMARY | 2024-07-24 17:30 | XMS_ITS | Encounter Summary ---
Author Organization [facility] [place] [address] Care Team Providers Care Senior Front End Engineer Name Role Phone Radha Mckeon MD Primary Care Provider [phone] Encounter Details Date Type Department Care Team (Late st Contact Info) Description 11/16/2016 Orders Only Cardiology at [address] [phone] Diogo Robb PA [facility] [place] [address] Persistent atrial fibrillation Social History Tobacco Use Types [...] EDT Hospital Encounter Non-Invasive [place] [address] Arrived 02/22/2025 1:30 PM EDT Appointment Hematology [place] [address] 02/22/2025 2:30 PM EDT Office Visit Hematology [place] [address] Ellis Childers MD [facility] DR HEMATOLOGY [place] [address] Felicita Landa APRN [facility] DR HEMATOLOGY [place] [address] documented as of this encounter Procedures Procedure Name Priority Date/Time Associated Diagnosis Comments ELECTROPHYSIOLOGY PROCEDURE Routine 11/23/2016 9:39 AM EST Persistent atrial fibrillation documented in this encounter Results * ELECTROPHYSIOLOGY PROCEDURE (11/23/2016 9:39 AM EST) Anatomical Region Laterality Modality Other Narrative 11/24/2016 12:45 PM EST Cardiac Electrophysiology Please refer to the operative note filed under the inpatient tab following the completion of this procedure. Sanford Byrd MD EP PROCEDURE ORDERAB LES documented in this encounter Visit Diagnoses Diagnosis Persistent atrial fibrillation Atrial fibrillation Persistent atrial fibrillation Atrial fibrillation documented in this encounter Care Teams Senior Front End Engineer Relationship Specialty Start Date End Date Radha Mckeon MD [address] [place] [address] PCP - General 09/23/10 documented as of this encounter
--- OUTSIDE RECORDS SUMMARY | 2024-07-24 17:30 | XMS_ITS | Encounter Summary ---
Author Organization [facility] [place] [address] Care Team Providers Care Sandwich Maker Name Role Phone Radha Mckeon MD Primary Care Provider [phone] Reason for Visit * Auth/Cert Specialty Diagnoses / Procedures Referred By Becki guillory Referred To Contact Diagnoses AF (atrial fibrillation) PAF Procedures ELECTROPHYSIOLOGY PROCEDURE TRANSESOPHAGEAL ECHO DURING CATH/EP PROCEDURE Referral ID Status Reason Start Date Expiration Date Visits Re quested Visits Authorized [id number] 1 1 Encounter Details Date Type Department Care Team (Latest Contact Info) Description 11/23/2016 6:04 AM EST - 11/25/2016 12:39 PM EST Hospital Encounter [place] [address] Sanford Byrd MD [facility] [place] [address] Persistent atrial fibrillation Discharge Disposition: Home Social History Tobacco Use [...] Sign Reading Time Taken Comments Blood Pressure 123/70 11/25/2016 8:08 AM EST Pulse 69 11/25/2016 8:08 AM EST Temperature 37 ??C (98.6 ??F) 11/25/2016 8:08 AM EST Respiratory Rate 16 11/25/2016 8:08 AM EST Oxygen Saturation 98% 11/25/2016 8:08 AM EST Inhaled Oxygen Concentration - - Weight 81.6 kg (180 lb) 11/23/2016 6:57 AM EST Height 182.9 cm (6') 11/23/2016 8:54 PM EST Body Mass Index 24.41 11/23/2016 6:57 AM EST documented in this encounter Discharge Summaries * Sanjuana Argueta MD - 11/25/2016 9:26 AM EST Discharge Summary Patient Name: Malik Machdao Patient Age: 66 y.o. Language: Citizen Of [place] Race: White Ethnicity: Not nor Admit date: 11/23/2016 Discharge date and time: 11/25/2016 1130 Attending Physician: Sanford Byrd MD Discharge Physician: Sanjuana Argueta MD Follow-up Recommendations for Providers: S/p Afib ablation(posterior wall isolation) Continuing verapamil 180mg and metoprolol 150mg and apixiban Will add Prilosec 40mg once daily for 30 days post ablation EP clinic in 3 months Inpatient Provider Contact Information: Cardiac Electrophysiology [phone] Patient Active Problem List Diagnosis ??? A-fib [...] of periodic palpitations 2015. -- Admitted to [facility] 08/27/16, with A. fib at a rate of 112 bpm on metoprolol 100 mg daily/verapamil 180 mg daily; DCCV; metoprolol increased to 150 mg daily; started Eliquis. --Echo 11/2016: EF 58%. --Repeat afib ablation 11/23/2016: Veins still isolated; posterior wall isolation performed, stage IV. ??? Hypertension Overview Note: ??? Adverse drug effects Overview Note: --Amitriptyline (palpitations), Lipitor (liver enzyme abnormalities), flecainide (IL/QRS prolongation noted 12/2007). ??? History of surgery Overview Note: --S/p pyloric stenosis surgery 2, appendectomy 1969, right carpal tunnel surgery 1974, spinal fusion 1993 (redo back surgery 1995, 1998), umbilical hernia repair 1997, left carpal tunnel repair 2002, left elbow surgery 2004, right total knee replacement 2009. ??? Thrombocytopenia - chronic ??? S/P knee replacement Overview Note: SURGERY DATE: 01/14/2010 MICHAEL MI MD PROCEDURE PERFORMED: Right total knee arthroplasty. IMPLANTS USED: All implants were from the [employer] total knee system. 1. A size 4 [...] Rx, 2011. --Currently on oxycodone. --Lumbar radiculopathy. Operations/Major Procedures: Operations: Procedure(s): ELECTROPHYSIOLOGY PROCEDURE TRANSESOPHAGEAL ECHO DURING CATH/EP PROCEDURE 11/23/2016 Afib ablation - posterior wall isolation History of Presentation: 66yo man with hx of atrial fibrillation and recurrent atrial arrythmia now POD#2 redo afib ablation. His last ablation was in 2013 and was considered successful. He has since then developed some recurrent symptoms with brief SVT and eventually afib requiring DC cardioversion. He was maintained on metoprolol 150mg daily and verapamil 180mg and anticoagulated on apixiban, ?? Hospital Course: At this ablation, no electrical reconnection was seen and no SVT could be induced. Afib was easily inducible. A posterior wall ablation was performed. Post procedure, he has had several episodes of left sided chest pain, typically sharp, lasting several minutes and subsiding on its own. No dysrhythmia or other findings were associated with these episodes. The procedure utilized limited energy and heis not considered at high risk for pericarditis however he did have significant pericarditis following his last ablation. These symptoms could represent cardiac discomfort related to the ablation, esophageal or GI relatedsource or another non-specific etiology. No acute etiology was identified. He was treated with PPI and sucralfate in addition to his Zantac and did not have recurrence. Vital Signs at Discharge: BP: 123/70, Heart Rate: 69, Temp: 37 ??C (98.6 ??F), Resp: 16, Height: 182.9 cm (6') (11/23/162053) Weight - Scale: 81.6 kg (180 lb) (11/23/16 0657) Functional and Cognitive Status: Fully functional; alert and oriented Admission Diagnoses: AF (atrial fibrillation) [I48.91] Discharge Diagnoses: Atrial fibrillation; s/p afib ablation Admission Condition: fair Indication for Admission: Atrial fibrillation Important Studies and Lab Data: Lab Results Component Value Date WBC 5.2 11/23/2016 HGB 14.7 11/23/2016 HCT 42.0 11/23/2016 PLATELET 121 (L) 11/23/2016 Lab Results Component Value Date NA 143 11/24/2016 K 4.3 11/24/2016 CL 107 11/24/2016 BUN 14 11/24/2016 CREATININE 0.92 11/24/2016 MAGNESIUM 0.72 12/15/2012 Treatments: procedures: posterior wall afib ablation Discharge Exam: Skin: warm and dry HEENT: MM moist; no JVD Chest: chest wall intact, non-tender Cardiac: Regular rate and rhythm; heart rate 70; no murmur, rubs or gallop Respiratory: Lungs clear to auscultation; no adventitious sounds ABD: soft, non-tender, non-distended Peripheral vascular: no edema, cyanosis Neuro: A & O X 3; NIEVES Discharge Conditions/Prognosis: good Discharge to: home Updated Allergies/ADRs: Allergies Allergen Reactions ??? Amitriptyline Hcl Palpitations Immunizations Given this Hospitalization: Immunization History Administered Date(s) Administered ??? Influenza Vaccine, Whole 08/01/2007, 08/01/2009 ??? Pneumococcal Polyvalent 23 12/10/2007 Discharge Medications: Your Medications Notice Some of the medications listed here do not show instructions, such as how often to take the medication. Ask your doctor or nurse how to use these medications. Specifically ask about this and similar medications: glucosamine-chondroitin 500-400 mg tablet Continued medications with new dosing Dose Details verapamil 120 mg Tbsr Commonly known as: CALAN-SR Take 1 tablet by mouth nightly. What changed: additional instructions 120 mg Refills: 3 Continued medications, unchanged Dose Details acetaminophen 500 mg Tab Commonly known as: TYLENOL Take 1,000 mg by mouth as needed. Indications: Headache Disorder, Pain 1000 mg Refills: 0 baclofen 10 mg Tab Commonly known as: LIORESAL Take 10 mg by mouth nightly. 10 mg Refills: 0 CENTRUM SILVER ORAL Take 1 tablet by mouth. 1 tablet Refills: 0 ELIQUIS 5 mg Tab Take 5 mg by mouth 2 times daily. Generic drug: apixaban 5 mg Refills: 0 FISH OIL 1,000 mg Cap Take 1,000 mg by mouth 2 times daily. Generic drug: fish oil-omega-3 fatty acids with vitamin E 1000 mg Refills: 0 glucosamine-chondroitin 500-400 mg Tab ?nk?wn!?? Refills: 0 meTOPROLOL succinate 100 mg Tablet sr Commonly known as: TOPROL-XL Take 1.5 tablets by mouth daily. 150 mg Quantity: 135 tablet Refills: PRN omeprazole 40 mg Cpdr Commonly known as: PriLOSEC Take 20 mg by mouth 2 times daily. 20 mg Refills: 0 oxyCODONE 15 mg Tab Commonly known as: ROXICODONE Take 15 mg by mouth every 4 hours as needed for Pain. 15 mg Refills: 0 ranitidine 150 mg Tab Commonly known as: ZANTAC Take 150 mg by mouth nightly. 150 mg Refills: 0 simvastatin 10 mg Tab Commonly known as: ZOCOR Take 10 mg by mouth nightly. 10 mg Refills: 0 SUMAtriptan 20 mg/actuation [place] Commonly known as: IMITREX 1 spray by Nasal route as needed. For migraines 1 spray Refills: 0 SYNTHROID 100 mcg Tab Take 100 mcg by mouth daily. Generic drug: levothyroxine 100 mcg Refills: 0 valACYclovir 500 mg Tab Commonly known as: VALTREX Take 500 mg by mouth daily. 500 mg Refills: 0 zolpidem 5 mg Tab Commonly known as: AMBIEN Take 5 mg by mouth nightly as needed. 1 to 2 tabs hs prn 5 mg Refills: 0 Smoking Status at Discharge: History Smoking Status ??? Former Smoker ??? Packs/day: 2.00 ??? Years: 16.00 ??? Types: Cigarettes ??? Quit date: 08/13/1983 Smokeless Tobacco ??? Never Used Instructions Given to Patient at Discharge: Patient Instructions DISCHARGE INSTRUCTIONS FOLLOWING YOUR ABLATION 1. Catheter Insertion Area Care You may take a shower if you wish the morning after the procedure. Wash the area with soap and water. Look for signs of infection over the next several days. A little spot of blood at the catheter insertion area is not unusual. A bruise or a small lump under the skin is normal; they generally disappear in three or four days. In some cases you may develop a larger bruise that may appear to extend somewhat down your thigh; this is normal and will resolve,generally within 1-2 weeks. Expect some mild tenderness over the area where the catheter was inserted. This should improve during the 24 to 48nhours after the procedure. Take Tylenol if needed and contact your doctor if the discomfort worsens. Avoid higher-dose ibuprofen (greater than 400mg twice daily) due to increased bleeding risk while on enoxaparin and coumadin. 2. Problems to Watch For If there is bright red blood flowing from the catheter insertion area ??? STOP what you are doing and lie down. ??? Hold pressure steadily on the area for fifteen minutes. ??? Call for help. ??? If the bleeding does not stop in fifteen minutes, call 911. ??? If there is rapid swelling with a ???black and blue?? color at the catheter insertion area, there may be bleeding inside. Call your doctor if there is any increase in size. Check the insertion site for the next few days at home. Signs of infection are: ??? Redness ??? Swelling ??? Yellow, white, green or brown, foul smelling drainage ??? Increased soreness ??? If you think there is an infection, take your temperature. Then call your doctor. The limb on the side where you had the catheter inserted should look and feel normal in its color, sensation and temperature. If your leg becomes cool, pale, blue or changing color with numbness and tingling, contact your doctor. If you feel faint or dizzy, lie down with your feet elevated. Have someone call the doctor. If you are alert, drink fluids. 3. Activity Do not bend over, strain or lift heavy objects for twenty four hours after the procedure. Do not participate in active sports for forty eight hours. You may engage in sexual activity after forty eight hours. Avoid heavy lifting (greater than 10 pounds) for one week following your procedure. The doctor will tell you when you can return to work. If you do not perform heavy physical labor, most people can return to work in a few days. 4. Additional discharge instructions: Pt advised to be vigilant for any of the following clinical findings (or anything else out of the ordinary): > Bleeding, pain, or swelling at any sheath/catheter insertion site. Sometimes this may develop even days after discharge, and there may then be a need to examine this and alter the anticoagulation medications. It is good to be up and around after the ablation procedure, but heavy lifting and straing should be avoided for the first 3-5 days. > Chest discomfort. Inflammation in the form of pericarditis may result in chest pain, which is not uncommon after an ablation procedure for atrial fibrillation. It often may be position-dependent, or will be exacerbated by ventilatory movement. If the patient experiences chest discomfort, it should be medically evaluated to ascertain the significance, and to assess for more serious alternative considerations requiring urgent intervention. If it otherwise is pericarditis, it commonly responds well to anti-inflammatory medication. > Atrial dysrhythmias (flutter, fibrillation, tachycardia). Post-procedure atrial dysrhythmias on the basis of temporary inflammation are not uncommon, and arenot necessarily indicative of an ineffective procedure... if the dysrhythmia is due to inflammtion,the dysrhythmias likely will cease as the inflammation resolves. The first 1-2 months are the most likely time during which this matter is relevant. If the patient experiences dysrhythmias, the Cardiac Electrtophysiology Service should be contacted. > Side effects of any new medications initiated at the hopsital. The patient should be aware and informed of any significant potential side effects that may be incurred as a result of being on new medication... > Sudden weakness, sensory loss, altered behavior or speech. This might be a consequence of a cerbrovascular event (stroke or TIA). This requires urgent and immediate medical attention. > Fever or sweats, significant malaise. Possibly a consequence of infection. This requires that the Cardiac Electrophysiology Service be contacted, or otherwise an urgent medical assessment should be obtained. > Shortness of breath, increased exertional intolerance. A variety of pulmonary or cardiac processes could be responsible for this. This requires that the Cardiac Electrophysiology Service be contacted, or otherwise an urgent medical assessment should be obtained. > Difficulty swalling, or pain with swallowing. While remote, there nonetheless is a ablation procedural risk of injury to the esophagus; if these symptoms emerge, immediate medical evaluation is urged (with no oral intake pending medical evaluation). This is not an exhaustive list. If the patient experiences anything out of the ordinary post-procedure, he/she is encouraged to contact his/her physician or the Cardiac Electrophysiology Service. General Instructions None Future Appointments and Orders Future Appointments Provider Department Dept Phone 12/24/2016 12:30 PM [facility] RO[facility] [phone] Please go to [employer] [facility] ([facility]). 12/24/2016 1:30 PM Michael Mi MD Orthopaedics [phone] Discharge References/Attachments None documented in this encounter Discharge Instructions * Patient Instructions* Sanjuana Robb PA - 11/25/2016 9:20 AM EST DISCHARGE INSTRUCTIONS FOLLOWING YOUR ABLATION 1. Catheter Insertion Area Care You may take a shower if you wish the morning after the procedure. Wash the area with soap and water. Look for signs of infection over the next several days. A little spot of blood at the catheter insertion area is not unusual. A bruise or a small lump under the skin is normal; they generally disappear in three or four days. In some cases you may develop a larger bruise that may appear to extend somewhat down your thigh; this is normal and will resolve,generally within 1-2 weeks. Expect some mild tenderness over the area where the catheter was inserted. This should improve during the 24 to 48nhours after the procedure. Take Tylenol if needed and contact your doctor if the discomfort worsens. Avoid higher-dose ibuprofen (greater than 400mg twice daily) due to increased bleeding risk while on enoxaparin and coumadin. 2. Problems to Watch For If there is bright red blood flowing from the catheter insertion area ??? STOP what you are doing and lie down. ??? Hold pressure steadily on the area for fifteen minutes. ??? Call for help. ??? If the bleeding does not stop in fifteen minutes, call 911. ??? If there is rapid swelling with a ???black and blue?? color at the catheter insertion area, there may be bleeding inside. Call your doctor if there is any increase in size. Check the insertion site for the next few days at home. Signs of infection are: ??? Redness ??? Swelling ??? Yellow, white, green or brown, foul smelling drainage ??? Increased soreness ??? If you think there is an infection, take your temperature. Then call your doctor. The limb on the side where you had the catheter inserted should look and feel normal in its color, sensation and temperature. If your leg becomes cool, pale, blue or changing color with numbness and tingling, contact your doctor. If you feel faint or dizzy, lie down with your feet elevated. Have someone call the doctor. If you are alert, drink fluids. 3. Activity Do not bend over, strain or lift heavy objects for twenty four hours after the procedure. Do not participate in active sports for forty eight hours. You may engage in sexual activity after forty eight hours. Avoid heavy lifting (greater than 10 pounds) for one week following your procedure. The doctor will tell you when you can return to work. If you do not perform heavy physical labor, most people can return to work in a few days. 4. Additional discharge instructions: Pt advised to be vigilant for any of the following clinical findings (or anything else out of the ordinary): > Bleeding, pain, or swelling at any sheath/catheter insertion site. Sometimes this may develop even days after discharge, and there may then be a need to examine this and alter the anticoagulation medications. It is good to be up and around after the ablation procedure, but heavy lifting and straing should be avoided for the first 3-5 days. > Chest discomfort. Inflammation in the form of pericarditis may result in chest pain, which is not uncommon after an ablation procedure for atrial fibrillation. It often may be position-dependent, or will be exacerbated by ventilatory movement. If the patient experiences chest discomfort, it should be medically evaluated to ascertain the significance, and to assess for more serious alternative considerations requiring urgent intervention. If it otherwise is pericarditis, it commonly responds well to anti-inflammatory medication. > Atrial dysrhythmias (flutter, fibrillation, tachycardia). Post-procedure atrial dysrhythmias on the basis of temporary inflammation are not uncommon, and arenot necessarily indicative of an ineffective procedure... if the dysrhythmia is due to inflammtion,the dysrhythmias likely will cease as the inflammation resolves. The first 1-2 months are the most likely time during which this matter is relevant. If the patient experiences dysrhythmias, the Cardiac Electrtophysiology Service should be contacted. > Side effects of any new medications initiated at the [facility]. The patient should be aware and informed of any significant potential side effects that may be incurred as a result of being on new medication... > Sudden weakness, sensory loss, altered behavior or speech. This might be a consequence of a cerbrovascular event (stroke or TIA). This requires urgent and immediate medical attention. > Fever or sweats, significant malaise. Possibly a consequence of infection. This requires that the Cardiac Electrophysiology Service be contacted, or otherwise an urgent medical assessment should be obtained. > Shortness of breath, increased exertional intolerance. A variety of pulmonary or cardiac processes could be responsible for this. This requires that the Cardiac Electrophysiology Service be contacted, or otherwise an urgent medical assessment should be obtained. > Difficulty swalling, or pain with swallowing. While remote, there nonetheless is a ablation procedural risk of injury to the esophagus; if these symptoms emerge, immediate medical evaluation is urged (with no oral intake pending medical evaluation). This is not an exhaustive list. If the patient experiences anything out of the ordinary post-procedure, he/she is encouraged to contact his/her physician or the Cardiac Electrophysiology Service. documented in this encounter Medications at Time [...] nightly. 03/18/2016 12/13/2018 SUMAtriptan (IMITREX) 20 mg/actuation [place], Non-Aerosol 1 spray by Nasal route as [...] 02/29/20 18 documented as of this encounter Progress Notes * Sanjuana Argueta MD - 11/25/2016 8:16 AM EST Inpatient Cardiac Electrophysiology Discharge Day Note Patient Name: Malik Machado Service: EP Responsible Attending: Sanford Byrd MD Reason for continued hospitalization: Atrial fibrillation; POD#2 posterior wall ablation Active Problems: Active Hospital Problems Diagnosis ??? A-fib ??? Adverse drug effects ??? History of surgery Resolved Hospital Problems Diagnosis Date Resolved No resolved problems to display. Interval History: Patient had uneventful overnight. No recurrent chest pain. There has been no dysrhythmia overnight.He feels better than yesterday. Review of Systems Constitutional: Negative for chills, diaphoresis, fatigue and fever. Respiratory: Negative for cough, chest tightness and shortness of breath. Cardiovascular: Negative for chest pain, palpitations and leg swelling. Gastrointestinal: Negative for diarrhea, nausea and vomiting. Genitourinary: Negative for dysuria, frequency and hematuria. Neurological: Negative for syncope, speech difficulty and numbness. Telemetry: HR: 60-90 sinus rhythm Meds: Scheduled Meds: ??? sucralfate 1 g Oral Q6H DAYA ??? apixaban 5 mg Oral BID ??? baclofen 10 mg Oral Nightly ??? levothyroxine 100 mcg Oral QAM ??? meTOPROLOL succinate 150 mg Oral Daily ??? simvastatin 10 mg Oral QPM ??? valACYclovir 500 mg Oral Daily ??? verapamil 120 mg Oral Nightly ??? pantoprazole 40 mg Oral Daily ??? famotidine 20 mg Oral BID Continuous Infusions: PRN Meds:alum-mag hydroxide-simeth, acetaminophen, oxyCODONE, zolpidem, ondansetron Physical Exam: Vital Signs: Last value Range last 12 hrs Temperature Temp: 37.1 ??C (98.8 ??F) Temp: [37.1 ??C (98.8 ??F)] Heart Rate Heart Rate: 69 Heart Rate: [68-70] Blood Pressure BP: 123/70 BP: (123-147)/(70-88) Respiratory Rate Resp: 16 Resp: [16] SpO2 SpO2: 98 % SpO2: [95 %-98 %] Physical Exam Constitutional: He is oriented to person, place, and time. No distress. Neck: No JVD present. Cardiovascular: Normal rate, regular rhythm and normal heart sounds. Pulmonary/Chest: Effort normal and breath sounds normal. Musculoskeletal: Normal range of motion. He exhibits no edema. Neurological: He is alert and oriented to person, place, and time. Skin: Skin is warm and dry. He is not diaphoretic. Nursing note and vitals reviewed. Lab Comments: Recent Results (from the past 24 hour(s)) Basic Metabolic Panel (non-fasting) Result Value Ref Range Glucose Lvl 114 65 - 199 mg/dL BUN 14 10 - 20 mg/dL Creatinine 0.92 0.80 - 1.50 mg/dL Sodium 143 135 - 145 mmol/L Potassium 4.3 3.5 - 5.0 mmol/L Chloride 107 98 - 107 mmol/L CO2 25 22 - 31 mmol/L Anion Gap 11 5 - 15 mmol/L Calcium 8.8 8.5 - 10.5 mg/dL Estimated GFR >60 >=60 Pertinent Radiographic/Diagnostic Results: Echocardiogram: 11/24/2016 1. Limited follow up study [...] and systolic function are within normal limits. 12 lead EK11/24/2016 Sinus rhythm @ 62; IL 162; QRS 136; QTc 424ms Assessment: Malik Machado is a 66 y.o. male with hx recurrent afib s/p previous PVI ablation, now POD#2 posterior wall isolation. He had several episodes of atypical left sided chest pain post ablation which have resolved. Post procedure echocardiogram showed grossly normal LV and RV function and no evidence of effusion. His post procedure course after his first ablation included severe pericarditis although his most recent symptoms are not consistent with that. Today he is improved and feels stable for discharge to home. Plan: 1. Stable for discharge to home today 2. Resumed verapamil 180mg, metoprolol 150mg and apixiban 3. PPI(Prilosec 40mg once daily) for 30 days post ablation ANDREE HALL 11/25/2016 I shared this visit with Sanjuana CANDELARIO. I supplemented the history, physical exam, and intervalROS with my own assessment and plan of care as above. I performed a targeted history update and exam as well. My role was to review and update the management of the active cardiovascular issues and to engage the patient in the medical decision-making. I constructed the plan of care and addressed the patient's questions. He is ready for discharge. 30 minutes on floor arranging discharge. * Sanjuana Argueta MD - 11/24/2016 11:03 AM EST Inpatient Cardiac Electrophysiology Note Patient Name: Malik Machado Service: EP Responsible Attending: Sanford Byrd MD Reason for continued hospitalization: Atrial fibrillation; POD#1 afib ablation; chest pain Patient Active Problem List Diagnosis ??? A-fib [...] of periodic palpitations 2015. -- Admitted to [facility] 08/27/16, with A. fib at a rate of 112 bpm on metoprolol 100 mg daily/verapamil 180 mg daily; DCCV; metoprolol increased to 150 mg daily; started Eliquis. --Repeat afib ablation 11/23/2016: Veins still isolated; posterior wall isolation performed, stage IV. ??? Hypertension Overview Note: ??? Adverse drug effects Overview Note: --Amitriptyline [...] replacement Overview Note: SURGERY DATE: 01/14/2010 MICHAEL IM MD PROCEDURE PERFORMED: Right total knee arthroplasty. [...] Rx, 2010. --Currently on oxycodone. --Lumbar radiculopathy. Interval History: 66yo man with hx of atrial fibrillation and recurrent atrial arrythmia now POD#1 redo afib ablation. His last ablation was in 2012 and was considered successful. He has since then developed some recurrent symptoms with brief SVT and eventually afib requiring DC cardioversion. He was maintained on metoprolol 150mg daily and verapamil 180mg and anticoagulated on apixiban, At redo ablation, no electrical reconnection was seen and no SVT could be induced. Afib was easily inducible. A posterior wall ablation was performed. Post procedure, he has had several episodes of left sided chest pain, typically sharp, lasting several minutes and subsiding on its own. No dysrhythmia or other findings are associated with these episodes. He generally feels weak and has yet returned to baseline. The procedure utilized limited energy and he is not considered at high risk for pericarditis however he did have significant pericarditis following his last ablation. Review of Systems Constitutional: Positive for fatigue. Negative for chills, diaphoresis and fever. Respiratory: Positive for chest tightness. Negative for cough. Cardiovascular: Positive for chest pain. Negative for palpitations and leg swelling. Gastrointestinal: Positive for nausea. Negative for diarrhea and vomiting. Musculoskeletal: Positive for back pain. Neurological: Negative for syncope and light-headedness. Telemetry: HR: 60-90 sinus rhythm Meds: Scheduled Meds: ??? sucralfate 1 g Oral Q6H DAYA ??? apixaban 5 mg Oral BID ??? baclofen 10 mg Oral Nightly ??? levothyroxine 100 mcg Oral QAM ??? meTOPROLOL succinate 150 mg Oral Daily ??? simvastatin 10 mg Oral QPM ??? valACYclovir 500 mg Oral Daily ??? verapamil 120 mg Oral Nightly ??? pantoprazole 40 mg Oral Daily ??? famotidine 20 mg Oral BID Continuous Infusions: PRN Meds:alum-mag hydroxide-simeth, acetaminophen, oxyCODONE, zolpidem, ondansetron Physical Exam: Vital Signs: Last value Range last 12 hrs Temperature Temp: 37.2 ??C (99 ??F) Temp: [36.9 ??C (98.4 ??F)-37.2 ??C (99 ??F)] Heart Rate Heart Rate: 67 Heart Rate: [62-67] Blood Pressure BP: 137/90 BP: (120-151)/(81-90) Respiratory Rate Resp: 18 Resp: [18-20] SpO2 SpO2: 98 % SpO2: [98 %] Physical Exam Constitutional: He is oriented to person, place, and time. No distress. HENT: Mouth/Throat: Oropharynx is clear and moist. Neck: No JVD present. Cardiovascular: Normal rate, regular rhythm, normal heart sounds and intact distal pulses. Pulmonary/Chest: Effort normal and breath sounds normal. Abdominal: Soft. There is no tenderness. Musculoskeletal: Normal range of motion. He exhibits no edema. Neurological: He is alert and oriented to person, place, and time. Skin: Skin is warm and dry. He is not diaphoretic. Nursing note and vitals reviewed. Lab Comments: Lab Results Component Value Date WBC 5.2 11/23/2016 HGB 14.7 11/23/2016 HCT 42.0 11/23/2016 PLATELET 121 (L) 11/23/2016 Recent Labs 11/23/16 0634 INR 1.0 Lab Results Component Value Date NA 143 11/24/2016 K 4.3 11/24/2016 CL 107 11/24/2016 BUN 14 11/24/2016 CREATININE 0.92 11/24/2016 MAGNESIUM 0.72 12/15/2012 Pertinent Radiographic/Diagnostic Results: EPS/ablation: 11/23/2016 0) No left atrial thrombus identified; the Doppler flow peak velocity at the neck of the left atrial appendage was 0.2 meters/second. ? 1) Demonstration of durable electrical isolation of both pulmonary vein antra having been achieved during his initial procedure accomplished in 2012. ?? 2) Acute electrical isolation of the posterior left atrial wall was accomplished (after confirming indications of this region as including fibrillatory substrate); transient acute reconnections were not be elicited chemically at the conclusion of the procedure (stage IV electrical isolation apparent after ~1 hour post-ablation). ? 3) No stable atrial tachycardia nor atrial flutter was elicited via programmed electrical stimulation from both the right atrium and the coronary sinus (+/- dobutamine infusions). ? 4) Preserved atrioventricular conduction. ? 5) No finding of an accessory pathway. ? 6) The P wave duration pre-ablation was 120 ms during sinus rhythm; the post- ablation sinus rhythm P wave duration also was 120 ms. Echocardiogram: 11/24/2016 1. Limited follow up study [...] and systolic function are within normal limits. ?? Assessment: Malik Machado is a 66 y.o. male with recurrent PAF after distant afib ablation. He returned and underwent redo afib ablation this time with posterior wall isolation. The procedure was uncomplicated, although he does not feel well today and has had several episodes of left sided atypical chest pain. These have not been associated with arrythmia and are transient. Follow up limited echo does not demonstrate an effusion. Some elements of his description are suggestive of possible esophageal etiology (spasm, GERD). He is maintained on zantac at home. Dr Byrd and I discussed possible strategies for evaluation and treatment of recurrent arrythmiasas well as his chest discomfort. Mr. Machado is anxious about his status given previous complications and living at a distance(~90mi). Plan: 1. Will remain hospitalized overnight for continued observation 2. Will obtain follow up EKG and BMP 3. Will trial GI oriented treatment - sucralfate/mylanta initially for chest discomfort I shared this visit with Sanjuana CANDELARIO. I supplemented the history, physical exam, and intervalROS with my own assessment and plan of care as below. I performed a targeted history update and exam as well. My role was to review and update the management of the active cardiovascular issues and to engage the patient in the medical decision-making. I constructed the plan of care and addressed the patient's questions. Yesterday Malik had burning chest discomfort that reminded him of the pericarditis he had after his first atrial fibrillation ablation. Today, he had relatively severe sharp chest discomfort, which isbetter now though he still has some mild pleuritic chest discomfort. I reassured him on the results of his echocardiogram. He does not require more therapy for chest discomfort at present, but may require empiric therapy for pericarditis at discharge. He's comfortable staying on metoprolol 150 mg daily plus verapamil 180 mg daily at the time of discharge. SANJUANA ARGUETA MD 11/24/2016 * Elke Hernandez RN - 11/24/2016 7:30 AM EST Pt c/o episode of left chest pain. VSS. EKG unchanged. Daniel GUTIÉRREZ. Pain subsided within 3 minutes. Patient describes pain as spasmatic and sharp. Will continue to monitor. * Deborah Lang RN - 11/23/2016 2:58 PM EST 1440 Report taken from Kirill HIRSCH in PACU Pt arrived at 1455 Via Bed Patient is neurologically intact, A&Ox4, vss. Lung sounds clear, Patient is on RA,no SOB, LEON, CP 5/5 strengths all extremities. No new numbness or tingling. Baseline numbness LLE foot Radial and dorsalis pulses normal Bowel sounds active x4,soft non tender. To ambulate: patient has not been OOB yet. Assistance [level of assistance required for transfers and ambulation]: At baseline patient uses cane for distance. Bathroom: hummel, Skin: RT radial, drsg, C/D/I, RT IJ, drsg, C/D/I, RT groin C/D/I, no drainage, dry, LT groin scant drainage in PACU area marked no new drainage noted. Drsg on : C/D/I. otherwise skin intact. No S/S of PU, or breakdown. Pain: 03/10 baseline chronic back UPDATE: 1700 patient complains of nausea, notified, ilyafran ordered. [address] Byrd may get patient up OOB now. 1730 patient ambulated in anguiano SBA, 1830 Patient nauseous again, notified Patient belongs with Patient family. Oriented to room, staff, use of call light. Patient verbalized/demonstrated understanding. Plan of care, treatments, goals, tests, services written on white board and discussed with patient/family for discharge readiness. Patient-specific fall risk factors per assessment/individualized fall prevention interventions: fall risk precautions initiated. Patient is cooperative. Patient able to reliably summon for assistance Bed in low position. Bed alarms with 3 side rails raised. Bed alarms onTabs. Bathing/hygeine/dressing assistance provided while encouraging independence. Environment clear of obstacles/tripping hazard. Lighting provided/adjusted. Patient instructed in use of call szymanski. call szymanski within reach at alltimes. Patient will remain free from falls this shift. Supervision [direct monitoring required during toileting and ADLs]: patient is independent at baseline, currently ands on assist with all ADL's, Surveillance [continuous indirect monitoring]: Purposeful hourly rounding done, pulse oximetry, room near nurses station, call szymanski within reach, Patient-specific fall prevention interventions for sensory deficits provided, if applicable: N/A * Eyad Moura RN - 11/23/2016 1:15 PM EST Pt to PACU placed on monitor alarms noted and appropriate for Pt. Admission assessment on going seePACU phase one flow sheet , chest noted to have erythema blanchable from patch removed end of EP 1300 repost from Marla meghana RN 1326 Pt turned to RT side propped with pillows for comfort 1327 Pt on RA trial 1430 Pt meets phase one DC criteria at this time documented in this encounter H&P Notes * Sanford Byrd MD - 11/23/2016 7:43 AM EST Cardiac Electrophysiology Attending This patient was seen and examined. He discontinued his apixaban 3 days ago. He is here for a follow up mapping and ablation procedure targeting atrial fibrillation (AF) - in December 2012, he underwent acute electrical isolation of the pulmonary vein antra. His course was complicated by pericarditis that resulted in his being rehospitalized, and also he suffered some odynophagia. In August of 2016, he experienced recurrent AF, from which he required external cardioversion (up until that time he had been doing well). Examination: As per Mr. Robb documented in his September 10 note. Assessment: Stable to proceed. The nature of the planned procedure, and its associated risks and limitations, were reviewed - all of his questions were answered. He asked about his SVT, and I mentioned working to elicit any other supraventricular tachycardias if otherwise he remains stable on thetable during this procedure. Plan: Proceed documented in this encounter Miscellaneous Notes * Plan of Care - Sulema Palomo RN - 11/25/2016 10:56 AM EST Problem: Patient Care Overview Goal: Plan of Care Review Outcome: Outcome (s) achieved Date Met: 11/25/16 11/25/16 1053 Coping/Psychosocial Plan Of Care Reviewed With patient Plan of Care Review Progress improving OUTCOME EVALUATION NOTE: OUTCOME SUMMARY: The patient has met discharge criteria per policy. Discharge instruction reviewed and patient discharged to responsible adult. Patient???s pain level has been assessed and patient states that his/her level is tolerable at thistime. The After Visit Summary (AVS) and accompanying hand-outs have been reviewed with the patient; the patient verbalizes understanding at this time. Opportunity for clarification provided. All new medications have been reviewed with the patient and the appropriate hand-outs have been given to the patient. Reportable sign and symptoms have been reviewed with patient. PLAN MOVING FORWARD: DC home INDIVIDUALIZED FALL PREVENTION INTERVENTIONS: Patient-specific fall risk factors per assessment: [current deficits]: NA Assistance [level of assistance required for transfers and ambulation]: independent Supervision [direct monitoring required during toileting and ADLs]: independent Surveillance [continuous indirect monitoring]: Self monitoring for s/sx of infection at groin sites, etc as instructed in AVS Patient-specific fall prevention interventions for sensory deficits provided, if applicable: NA CPG GOAL OUTCOME EVALUATION: Goal: Individualization & Mutuality Outcome: Outcome (s) achieved Date Met: 11/25/16 11/24/16 0109 11/24/16 1253 Mutuality/Individual Preferences What Anxieties, Fears or Concerns Do You Have About Your Health or Care? none -- What Questions Do You Have About Your Health or Care? -- none What Information Would Help Us Give You More Personalized Care? pt has significant back pain at baseline -- Goal: Fall Prevention-Safe Patient Handling Outcome: Outcome (s) achieved Date Met: 11/25/16 11/24/16 0415 11/24/16 2345 11/25/16 0800 Daily Care Interventions Self-Care Promotion independence encouraged -- -- Activity and Safety Assistive Device Front wheel walker -- -- Flowers Fall Risk History of Falling -- -- 0 Secondary Diagnosis -- -- 15 Ambulatory Aids -- -- 0 Intravenous Therapy/Heparin/Saline Lock -- -- 20 Gait/Transferring -- -- 0 Mental Status -- -- 0 Score -- -- 35 OTHER Flowers Fall Risk -- Med -- Restraint Interventions Safety Promotion/Fall Prevention -- -- fall prevention program maintained;nonskid shoes/slippers when out of bed;safety round/check completed Positioning Body Position -- -- supine, head elevated Goal: Infection Control Outcome: Outcome (s) achieved Date Met: 11/25/16 11/25/16 0800 Safety Interventions Isolation Precautions standard precautions maintained Infection Prevention single patient room provided;rest/sleep promoted Coping Strategies Supportive Measures active listening utilized;verbalization of feelings encouraged Goal: Discharge Needs Assessment Outcome: Outcome (s) achieved Date Met: 11/25/16 11/24/16 0415 11/24/16 1921 Discharge Needs Assessment Concerns To Be Addressed -- no discharge needs identified Readmission Within The Last 30 Days no previous admission in last 30 days -- Discharge Disposition -- home or self-care Current Health Anticipated Changes Related to Illness -- none Activity/Self Care Review of Systems Equipment Currently Used at Home -- cane, straight Living Environment Transportation Available -- family or friend will provide * Plan of Care - Elke Hernandez RN - 11/25/2016 5:19 AM EST Problem: Patient Care Overview Goal: Plan of Care Review Outcome: Ongoing (Interventions Implemented as Appropriate) 11/25/16 0514 Coping/Psychosocial Plan Of Care Reviewed With patient Plan of Care Review Progress improving OUTCOME EVALUATION NOTE: OUTCOME SUMMARY: Patient's chest discomfort has remained the same throughout this shift despite carafate. He has no c/o chest pressure or SOB. Bilateral groin sites and right IJ site is WNL. Telemetry showing RBBB with some PVCs. VSS. Pt is ambulating independently and voiding without difficulty. He is tolerating [facility] diet. Will continue to monitor. PLAN MOVING FORWARD: Continue monitoring chest discomfort. INDIVIDUALIZED FALL PREVENTION INTERVENTIONS: Patient-specific fall risk factors per assessment: [current deficits]: Post- procedure, history of back pain Assistance [level of assistance required for transfers and ambulation]: Independent Supervision [direct monitoring required during toileting and ADLs]: Independent with ADLs Surveillance [continuous indirect monitoring]: q2 hour rounding; pulse oximetry; telemetry; call szymanski in reach; Patient-specific fall prevention interventions for sensory deficits provided, if applicable: CPG GOAL OUTCOME EVALUATION: Goal: Individualization & Mutuality 11/24/16 0109 11/24/16 1253 Mutuality/Individual Preferences What Anxieties, Fears or Concerns Do You Have About Your Health or Care? none -- What Questions Do You Have About Your Health or Care? -- none What Information Would Help Us Give You More Personalized Care? pt has significant back pain at baseline -- Goal: Fall Prevention-Safe Patient Handling 11/24/1641411/24/16 1629 11/24/16 2345 Daily Care Interventions Self-Care Promotion independence encouraged -- -- Activity and Safety Assistive Device Front wheel walker -- -- Flowers Fall Risk History of Falling -- -- 0 Secondary Diagnosis -- -- 15 Ambulatory Aids -- -- 0 Intravenous Therapy/Heparin/Saline Lock -- -- 20 Gait/Transferring -- -- 0 Mental Status -- -- 0 Score -- -- 35 OTHER Flowers Fall Risk -- -- Med Restraint Interventions Safety Promotion/Fall Prevention -- -- fall prevention program maintained Positioning Body Position -- supine, head elevated -- Goal: Infection Control 11/24/16 234 Safety Interventions Isolation Precautions standard precautions maintained Infection Prevention rest/sleep promoted Coping Strategies Supportive Measures active listening utilized Goal: Discharge Needs Assessment 11/24/1641411/24/16 192 Discharge Needs Assessment Concerns To Be Addressed -- no discharge needs identified Readmission Within The Last 30 Days no previous admission in last 30 days -- Discharge Disposition -- home or self-care Current Health Anticipated Changes Related to Illness -- none Activity/Self Care Review of Systems Equipment Currently Used at Home -- cane, straight Living Environment Transportation Available -- family or friend will provide * Plan of Care - Sulema Palomo RN - 11/24/2016 7:27 PM EST Problem: Patient Care Overview Goal: Plan of Care Review Outcome: Ongoing (Interventions Implemented as Appropriate) 11/24/16 1921 Coping/Psychosocial Plan Of Care Reviewed With patient Plan of Care Review Progress improving OUTCOME EVALUATION NOTE: OUTCOME SUMMARY: VSS, afebrile, O2 sat stable on RA. SR BBB on tele. Groin sites CDI. Pt tolerating PO intake well, ambulating independently, voiding without difficulty. Echo done today. Pt started on Sulcrafate scheduled today and Mylanta prn. Pt has had no further episodes of left sided chest spasms. PLAN MOVING FORWARD: Continue to monitor overnight INDIVIDUALIZED FALL PREVENTION INTERVENTIONS: Patient-specific fall risk factors per assessment: [current deficits]: Has chronic back pain, uses cane occasionally, has been ambulating independently with steady gait here Assistance [level of assistance required for transfers and ambulation]: independent Supervision [direct monitoring required during toileting and ADLs]: independent Surveillance [continuous indirect monitoring]: tele, pulse oximetry, purposeful roundig Patient-specific fall prevention interventions for sensory deficits provided, if applicable: NA CPG GOAL OUTCOME EVALUATION: Goal: Individualization & Mutuality Outcome: Ongoing (Interventions Implemented as Appropriate) 11/24/16 0109 11/24/16 1253 Mutuality/Individual Preferences What Anxieties, Fears or Concerns Do You Have About Your Health or Care? none -- What Questions Do You Have About Your Health or Care? -- none What Information Would Help Us Give You More Personalized Care? pt has significant back pain at baseline -- Goal: Fall Prevention-Safe Patient Handling Outcome: Ongoing (Interventions Implemented as Appropriate) 11/24/16 0415 11/24/16 0750 11/24/16 1629 Daily Care Interventions Self-Care Promotion independence encouraged -- -- Activity and Safety Assistive Device Front wheel walker -- -- Flowers Fall Risk History of Falling -- 0 -- Secondary Diagnosis -- 15 -- Ambulatory Aids -- 0 -- Intravenous Therapy/Heparin/Saline Lock -- 20 -- Gait/Transferring -- 0 -- Mental Status -- 0 -- Score -- 35 -- OTHER Flowers Fall Risk -- Med -- Restraint Interventions Safety Promotion/Fall Prevention -- -- fall prevention program maintained;nonskid shoes/slippers when out of bed;safety round/check completed Positioning Body Position -- -- supine, head elevated Goal: Infection Control Outcome: Ongoing (Interventions Implemented as Appropriate) 11/24/16 0750 Safety Interventions Isolation Precautions standard precautions maintained Infection Prevention rest/sleep promoted;single patient room provided Coping Strategies Supportive Measures active listening utilized;verbalization of feelings encouraged Goal: Discharge Needs Assessment Outcome: Ongoing (Interventions Implemented as Appropriate) 11/24/16 1921 Discharge Needs Assessment Concerns To Be Addressed no discharge needs identified Discharge Disposition home or self-care Current Health Anticipated Changes Related to Illness none Activity/Self Care Review of Systems Equipment Currently Used at Home cane, straight Living Environment Transportation Available family or friend will provide * Plan of Care - Elke Hernandez RN - 11/24/2016 4:22 AM EST Problem: Patient Care Overview Goal: Plan of Care Review Outcome: Ongoing (Interventions Implemented as Appropriate) 11/24/16 2895 Coping/Psychosocial Plan Of Care Reviewed With patient Plan of Care Review Progress improving OUTCOME EVALUATION NOTE: OUTCOME SUMMARY: Patient has done well this shift. He has no c/o chest pain/pressure or SOB. Bilateral groin sites and right IJ site is CD&I with no evidence of hematoma. Pulses palpable. Pt has baseline LLE numbness; no other c/o numbness/tingling. Telemetry showing RBBB with rare PVCs. VSS. Patient had some nausea at the beginning of the shift that resolved following a dose of reglan. He has since tolerateda [facility] [place] diet with no c/o nausea. Hummel catheter remains in place and draining clear, yellow urine; will remove catheter this morning per MD order. Patient is ambulating with stand by assist using a walker. Will continue to monitor. PLAN MOVING FORWARD: D/c hummel, void, EKG INDIVIDUALIZED FALL PREVENTION INTERVENTIONS: Patient-specific fall risk factors per assessment: [current deficits]: Chronic back pain, LLE numbness, hummel catheter Assistance [level of assistance required for transfers and ambulation]: Stand by assist with a walker Supervision [direct monitoring required during toileting and ADLs]: Minimal assistance with ADLs Surveillance [continuous indirect monitoring]: q2 hour rounding; telemetry; pulse oximetry; call szymanski in reach Patient-specific fall prevention interventions for sensory deficits provided, if applicable: CPG GOAL OUTCOME EVALUATION: Goal: Individualization & Mutuality 11/24/16108 Mutuality/Individual Preferences What Anxieties, Fears or Concerns Do You Have About Your Health or Care? none What Questions Do You Have About Your Health or Care? How long will I need to take the eliquis for? What Information Would Help Us Give You More Personalized Care? pt has significant back pain at baseline Goal: Fall Prevention-Safe Patient Handling 11/23/16205511/24/16414 Daily Care Interventions Self-Care Promotion -- independence encouraged Activity and Safety Assistive Device -- Front wheel walker Flowers Fall Risk History of Falling 0 -- Secondary Diagnosis 15 -- Ambulatory Aids 0 -- Intravenous Therapy/Heparin/Saline Lock 20 -- Gait/Transferring 0 -- Mental Status 0 -- Score 35 -- OTHER Flowers Fall Risk Med -- Restraint Interventions Safety Promotion/Fall Prevention fall prevention program maintained;nonskid shoes/slippers when outof bed -- Positioning Body Position supine, head elevated -- Goal: Infection Control 11/23/162055 Safety Interventions Isolation Precautions standard precautions maintained Infection Prevention single patient room provided Coping Strategies Supportive Measures active listening utilized Goal: Discharge Needs Assessment 11/24/1610811/24/16414 Discharge Needs Assessment Concerns To Be Addressed -- no discharge needs identified Readmission Within The Last 30 Days -- no previous admission in last 30 days Discharge Disposition -- home or self-care Current Health Anticipated Changes Related to Illness -- none Activity/Self Care Review of Systems Equipment Currently Used at Home cane, straight (occasional) -- Living Environment Transportation Available family or friend will provide -- * Op Note - Sanford Byrd MD - 11/23/2016 2:47 PM EST Electrical Isolation of the Posterior Left Atrial Wall (Atrial Fibrillation Radiofrequency Ablation): Electrophysiology Study with Dobutamine Infusion, Transseptal Left Atrial Assessment x 2, Intracardiac Echo Imaging and Doppler Assessment of Left Atrial Appendage Flow, 3-Dimensional Intracardiac Mapping (CARTO + CARTO-Sound), Direct Current Cardioversion Computer Graphic Artist: Sanford Byrd MD Indication: Persistent atrial fibrillation Pre-procedure: Anticoagulation : Apixaban discontinued 4 days ago Antiarrhythmic : None Weight : 81.6 Kg [id number] : 1 Method: The procedural attending personally reviewed the nature of the procedure, procedural goals,and associated risks and limitations of the planned intervention with the patient. He was reminded of anticoagulation plans post- procedure. Other post-procedure issues also were reviewed, such as pericarditis, post-procedure atrial fibrillation related to inflammation in pericarditis, bleeding and thrombus issues, excess fluid, etc. All of his questions were answered. After confirmation of his informed consent, the patient was brought to the biplane Electrophysiology Laboratory in the fasting state. A time out was accomplished. Continuous electrocardiographic monitoring was instituted. General anesthesia and airway management were accomplished by the Anesthesiology Service. Both femoral regions and the right base of the neck were prepared and draped in the usual sterile manner. Local anesthesia was achieved with a 1:1 mixture of 2% lidocaine and 0.5% bupivacaine administered subcutaneously. Using ultrasound venography for guidance, the following hemostatic sheaths (all with sidearms and flushed) were inserted utilizing a modified Seldinger technique under ultrasound guidance, and electrode catheters were positioned under fluoroscopic guidance as follows: Sheath Catheter Electrodes Insertion Site Target 8 Fr 6 Fr 10 Right internal jugular Coronary sinus 8.5 Fr 7 Fr 20 Right femoral vein Left atrium 11.5 Fr 7.5 Fr 4 Right femoral vein Left atrium 9 Fr 8 Fr ICE Left femoral vein Both atria 5.5 Fr 5 Fr 10 Left femoral vein Right atrium ... esophageal lead w/ 2 cm bipole (with thermistor and Esophastar) (to assess left atrial posterior wall activation timing). ... central venous pressure (monitored via the right internal jugular sheath side arm). ... blood pressure (monitored via radial arterial line) Programmed electrical stimulation, imaging, CARTO 3-dimensional mapping, and radiofrequency ablation were performed as detailed below and digitally archived. Baseline Electrophysiologic Assessment: 1) The patient was in sinus rhythm at baseline. Measurements assessed during sinus rhythm at a cycle length (CL) of 850 milliseconds (ms) were as follows: IL: 150 ms (P wave duration 120 ms) AH: 60 ms HV: 50 ms QRS: 140 ms QT: 410 ms 2) Atrial overdrive pacing (10 mA @ 2 ms) was accomplished from the proximal- most bipole in the coronary sinus (CS), and the atrioventricular (AV) Wenckebach block CL was observed at 340 ms. There was no pre-excitation or conduction aberrancy identified. The [id number] > QRS-QRS just prior to the observed AV Wenckebach block CL, but no echo beats were elicited. 3) Pacing was accomplished from high right ventricular septum, and 1:1 concentric ventriculo-atrial(VA) conduction was present down to a CL of 310 ms. 4) Atrial extrastimulus testing from within the CS was accomplished using an atrial drive train of CL 600 ms; the local atrial effective refractory period (ERP) was noted at an S2 coupling interval of 260 ms (25 mA @ 2 ms), and the AV node ERP was less than or equal to that coupling interval. 5) A 6 mg intravenous test bolus of adenosine was administered, which was observed to have a mild manifest effect on conduction intervals, and there was no other obvious effect on the patient's rhythm or ventilatory parameters (no significant AH prolongation, AV conduction block, or change in ventilatory pressures). A 12 mg intravenous bolus of adenosine was administered next, which elicited transient AV conduction block with sinus rate slowing; again there was no apparent impact on ventilatoryparameters. 6) Rapid atrial pacing decremented down to a CL of 240 ms possibly elicited 1 atrial re-entrant beat; pacing to a CL of 220 ms elicited atrial fibrillation (AF). After a couple of minutes of persisting AF, a direct-current cardioversion (DCCV) was performed via a synchronized 100 Joule biphasic countershock delivered across an external anteroposterior vector, which successfully restored the patient to sinus rhythm. 7) Dobutamine was infused at a rate of 10 mcg/kg/minute, and the infusion rate incrementally was increased to a maximum infusion rate of 40 mcg/kg/minute (sinus rate 70/minute increased to a faster sinus rate of 120/minute). As the dobutamine infusion was terminated, a 24 mg adenosine bolus was administered, after which transient AV conduction delay and marked sinus rate slowing was observed. No atrial fibrillation (AF) ensued, but the sinus rate increased to 140/minute during the post-adenosine adrenergic phase. 8) As the dobutamine effect was dissipating, rapid high output atrial pacing from the most proximalCS bipole was accomplished. Decrementing the atrial pacing to a CL of 170 ms elicited 1 atrial re-entrant beat, but pacing to a CL of 160 ms elicited 6 atrial reentrant beats. Transeptal Access: A heparin infusion was initiated at a rate of 2000 units/hour. The short 8 [place] sheaths in the right femoral vein were replaced with long sheaths as follows: A Daig 8.5 Fr SL1 transeptal sheath carefully was advanced over a 0.035 J- tipped guidewire so thatits tip was in the superior vena cava. The guidewire was exchanged for a Brockenbrough needle (BRK tip), which was inserted into the sheath dilator. The tip of the sheath dilator was pulled inferiorly and positioned at the middle aspect of the foramen ovalis ('leftward tenting at the fossa' was confirmed), and then the Brockenbrough needle was advanced into the left atrium guided by the intracardiac echocardiography (ICE) imaging and fluoroscopic views, and over this was advanced the dilator and sheath, taking care to remain posterior and away from the left atrial appendage (MARY CARMEN); almost simultaneously, a 7500 unit bolus of heparin was administered. With the needle and dilator withdrawn, the left atrial pressure was assessed via the sheath side arm pressure column to be 10 cm blood; the right atrial pressure at that time was 9 mm Hg. A blood sample sample also was obtained, and the oxygen saturation was measured as 96%. An eicosapolar PentaRay catheter was inserted via this SL1 sheathand cautiously advanced into the left atrium (LA) for mapping. Arterial blood gas measurements and iStat chemistries were obtained from the sample drawn at the time of initial transseptal access to the left atrium; these results were within an acceptable rangepH 7.33, pCO2 44.6 mm Hg, pO2 133 mm Hg, HCO3 23.7 mmol/L, Na+ 131 mmol/L, K+ 4.0 mmol/L, iCa++ 1.13 mmol/L, and Hb 12.6 g/dL. Next, a [address] Ian 'Agilis' short curl steerable transeptal sheath was advanced across the fossa via a separate lower and more anterior septal access site utilizing similar technique as was used with the SL1 sheath. The left atrial pressure was assessed via the sheath side arm pressure column, and was 11 cm blood; the right atrial pressure at that time was 12 mm Hg. Another blood sample was obtained, with the oxygen saturation was measured at 97%). Another 2500 unit intravenous bolusof heparin was administered immediately after confirming successful left atrial access. Activated Clotting Times (ACTs) were assessed regularly after entry into the left atrium, and adjustments to the heparin infusion rate and heparin bolus doses were administered to maintain the ACT inthe targeted range (300-400 seconds). A slow continuous heparinized saline flush (10,000 units/liter) was maintained through the sidearms of both transseptal sheaths. Left Atrial Anatomy and Mapping: The ICE catheter was removed from the 9 Fr sheath, and then deployed through the Agilis sheath for left atrial access. ICE was employed for a careful assessment of the left atrial appendage (imaging at a frequency of 11.5 MHz), during which no thrombus was identified. Color Doppler was used to assess left atrial appendage flow, and a flow rate assessment by pulse Doppler revealed peak flows of 0.2 meters/second during coarse atrial fibrillation. ICE also was used to generate a spatial shell depicting the esophageal volume. The ICE catheter then was removed from the Agilis sheath, and redeployed via the 9 Fr femoral sheath to the right atrium for subsequent use in monitoring the patient's status. A CARTO [employer] ThermoCool SF 8 Fr ablation catheter with bidirectional deflectable 3.5 mm tip (D and F curves) was positioned within the left atrium for mapping and ablation via the Agilis sheath. A left atrial volume was constructed via fast anatomical mapping (using the eicosapolar PentaRay cath eter). A left atrial voltage map simultaneously was acquired, and this revealed no obvious areas ofscar or atrial regions with low amplitude fractionated electrogram signals; electrical isolation ofboth pulmonary vein antra was demonstrated. Rapid CS pacing was accomplished while the eicosapolar PentaRay catheter splines were situated against the posterior left atrial wall (PLAW). Pacing to a CL of 220 ms, 200 ms, and 190 ms elicited a single reentrant atrial beat; pacing to a CL of 180 ms elicited 2 reentrant beats. Pacing to a CL of 170 ms elicited 4-5 reentrant beats, and pacing to a CL of 160 ms elicited AF (pacing at 25 mA @ 2 ms was necessary to achieve 1;1 local capture). Marked fractionation and conduction delay were manifest within the PLAW region, suggesting that the PLAW region was serving as a fibrillatory substrate. Radiofrequency Ablation: ?? Electrical Isolation of the Posterior Left Atrial Wall (PLAW) ?? The esophageal lead was observed in position adjacent to the mid posterior left atrium. Extra precautions were observed when ablating inferoposteriorly (unidirectional catheter tip motion with expedited movement along the posterior trajectory and the adjacent esophageal luminal temperature continually was assessed). During continuing AF, cautious radiofrequency ablation was accomplished across the inferoposterior (IP) segment, extending from the inferior left pulmonary vein antrum (LPVA) margin towards the inferoposterior margin of the right pulmonary vein antrum (RPVA) using expedited unidirectional catheter motion and 20 enamorado of delivered power. The IP segment was ablated with the delivery of 2190 Joules during 1:48 minutes:seconds (m:s) of ablation time along the 3.5 cm segment. Late stage IV conduction block was demonstrated at the end of this procedure without further ablation along this trajectory. Limited slow spontaneous electrical activity (SSEA) was appreciated within the PLAW region. Next, ablation was accomplished along the 2.0 cm superior segment. Starting at the leftward extent of the superior segment, 30-35 enamorado was delivered along 1.1 cm of the ablation trajectory before acute electrical isolation (aEI) of the PLAW was appreciated... aEI of the PLAW actually may have havebeen accomplished sooner than when it first was noticed, at which point 1649 Joules was delivered during 0:48 m:s of actual ablation time. The remainder of the 2.5 cm superior segment subsequently was ablated, with 3014 Joules delivered along the entire segment during 1:27 m:s of actual ablation time. Because the patient as yet was in AF, a biphasic 100 Joule DCCV was accomplished, which restored sinus rhythm (aEI of the PLAW remained manifest). Pacing within the PLAW achieved local capture, and PLAW exit block was demonstrated. A 12 mg intravenous bolus of adenosine was administered, which elicited transient sinus rate slowing and AV conduction block, but aEI of the PLAW persisted. Right atrial pacing to a CL of 200 ms elicited ~14 seconds of an unstable atrial tachycardia/flutter. A single tightly coupled right atrial premature paced beat also elicited an atrial flutter of CL 180 ms that reverted to fibrillatory conduction; another 100 Joule DCCV restored sinus rhythm. Dobutamine was infused at 20 mcg/kg/minute to enhance the chances of eliciting organized stable atrial reentry or some other supraventricular tachycardia. Atrial burst pacing from both the right atrium andleft atrium failed to elicit any such rhythm, and neither did the introduction of single and doubleatrial extrastimuli. The dobutamine infusion was terminated. Reassessment: Additional atrial programmed electrical stimulation ensued, but no stable supraventricular tachycardia nor atrial tachycardia/flutter was elicited. After the effects of the dobutamine infusion largely had subsided, an 18 mg intravenous bolus of adenosine was administered; this elicited transient sinus rate slowing and AV conduction block, but aEI of the PLAW persisted. Dobutamine was infused at 40 mcg/kg/minute, and the sinus rate increased to 144/minute, and the dissociated SSEA was observed at a rate of 65/minute. As the dobutamine infusion was terminated, a 30 mg intravenous adenosine bolus was administered; this elicited both transient AV conduction delay andmarked sinus rate slowing, but without any obvious transient loss of entrance block or exit block (but SSEA transiently was suppressed). Stage IV aEI was demonstrated ~50 minutes after first having achieved aEI. Completion of the Procedure: The heparin infusion was discontinued as the catheters and sheaths were withdrawn from the left atrium. Later (upon completion of mapping, ablation, and follow up electrophysiologic and provocative testing), all catheters and sheaths were placed in neutral position and cautiously were withdrawn from the heart. Total Fluoroscopy Time: 6.3 minutes, low intensity setting, biplane Dose Area Product: 723 cGy.cm2 Cumulated Dose: 86 mGy Total Radiofrequency Energy Delivered: 5204 Joules Total Actual Ablation Time: 3:15 m:s At the conclusion of the procedure, sheaths were removed, and hemostasis was achieved via manual compression (following administration of 30 mg of protamine). The total estimated blood loss was <50 cc (including discards in conjunction with assessing ACT). No intravenous contrast was used duringthis procedure. The total fluid administered during the procedure was ___ cc, and the urine output was ___ cc. The patient tolerated the procedure well, with no apparent acute complications. He was transferred to the recovery area in stable condition with a Hummel catheter yet in place. Results: 0) No left atrial thrombus identified; the Doppler flow peak velocity at the neck of the left atrial appendage was 0.2 meters/second. ?? 1) Demonstration of durable electrical isolation of both pulmonary vein antra having been achieved during his initial procedure accomplished in 2012. ?? 2) Acute electrical isolation of the posterior left atrial wall was accomplished (after confirming indications of this region as including fibrillatory substrate); transient acute reconnections were not be elicited chemically at the conclusion of the procedure (stage IV electrical isolation apparent after ~1 hour post-ablation). ?? 3) No stable atrial tachycardia nor atrial flutter was elicited via programmed electrical stimulation from both the right atrium and the coronary sinus (+/- dobutamine infusions). ?? 4) Preserved atrioventricular conduction. ?? 5) No finding of an accessory pathway. ?? 6) The P wave duration pre-ablation was 120 ms during sinus rhythm; the post- ablation sinus rhythm P wave duration also was 120 ms. ____ documented in this encounter Plan of Treatment Upcoming Encounters Date Type Department Care Team (Late st Contact Info) Description 08/18/2024 11:00 AM EDT Hospital Encounter [place] [phone] Arrived 02/22/2025 1:30 PM EDT Appointment Hematology [place] [phone] 02/22/2025 2:30 PM EDT Office Visit H[place]ology [place] [phone] Ellis Childers MD [facility] [address] HEMATOLOGY [place] [address] Felicita Landa APRN [facility] [address] HEMATOLOGY [place] [address] documented as of this encounter Procedures Procedure Name Priority Date/Time Associated Diagnosis Comments RANGE MANAGEMENT SPECIALIST SCAN 11/25/2016 12:00 AM EST RANGE MANAGEMENT SPECIALIST SCAN 11/25/2016 12:00 AM EST BASIC METABOLIC PANEL Routine 11/24/2016 2:30 PM EST EKG 12-LEAD Routine 11/24/2016 2:19 PM EST Persistent atrial fibrillation ECHO LMTD W/O CONTRAST Routine 11/24/2016 9:49 AM EST Persistent atrial fibrillation EKG 12-LEAD Routine 11/24/2016 7:18 AM EST Persistent atrial fibrillation EKG 12-LEAD Routine 11/23/2016 6:53 AM EST Persistent atrial fibrillation ABORH RECHECK STATUS STAT 11/23/2016 6:34 AM EST ANTIBODY SCREEN MANUAL STAT 11/23/2016 6:34 AM EST ABORH TYPE MANUAL STAT 11/23/2016 6:3 4 AM EST BMP W/FASTING GLUCOSE STAT 11/23/2016 6:34 AM EST Persistent atrial fibrillation HEMOGRAM STAT 11/23/2016 6:34 AM EST Persistent atrial fibrillation DIFFERENTIAL, AUTOMATED STAT 11/23/2016 6:34 AM EST Persistent atrial fibrillation PROTHROMBIN TIME STAT 11/23/2016 6:34 AM EST Persistent atrial fibrillation CBC (WITH DIFF) STAT 11/23/2016 6:34 AM EST Persistent atrial fibrillation documented in this encounter Results * SCAN DOC: RANGE MANAGEMENT SPECIALIST (11/25/2016 12:00 AM EST) Anatomical Region Laterality Modality Other Scanning Provider MEDIA MGR SCAN EXT O RDR/RSLT * SCAN DOC: RANGE MANAGEMENT SPECIALIST (11/25/2016 12:00 AM EST) Anatomical Region Laterality Modality Other Scanning Provider MEDIA MGR SCAN EXT O RDR/RSLT * Basic Metabolic Panel (non-fasting) (11/24/2016 2:30 PM EST) Glucose 114 65 - 199 mg/dL [facility] Comment:Diabetes: >=200 mg/d L plus symptoms Blood Urea Nitrogen 14 10 - 20 mg/dL [facility] Creatinine 0.92 0.80 - 1.50 mg/dL [facility] Comment: Please note that the pediatric reference intervals supplied above were not validated at [facility] [place]. Results from pediatric patients should be interpreted in conjunction to the patient's age, height and muscle mass. Sodium 143 135 - 145 mmol/L [facility] Potassium 4.3 3.5 - 5.0 mmol/L [facility] Comment: Please note: ??Patients with WBC >100,000 may have falsely elevated Potassium levels. ??For accurate Potassium quantification in these patients send serum separator tube (gold top) for subsequent determinations. ??Contact the Clinical Chemistry Laboratory if there are any questions. Chloride 107 98 - 107 mmol/L [facility] Carbon Dioxide 25 22 - 31 mmol/L [facility] Anion Gap 11 5 - 15 mmol/L [facility] Calcium 8.8 8.5 - 10.5 mg/dL [facility] Est Glomerular Filtration Rate >60 >=60 [facility] Comment: This estimated GFR (eGFR) value was calculated using the MDRD equation which has been validated on patients between the ages of 18 and 70. The MDRD should not be used to assess kidney function in patients < 18 years of age or in patients with extremes of body mass, or in patients with acute kidney failure. This value should be multiplied by 1.2 for patients. For further information please copy and paste the following links into your internet browser. [email or web address] Blood specimen (specimen) 11/24/2016 2:30 PM EST 11/24/2016 3:02 PM EST Narrative Resulting Agency Comment Spec In Lab Sanford Byrd MD CHEMISTRY ORDERABLES Performing Organization Address City/State/[facility] Co de Phone Number [facility] [address] * EKG 12 Lead (11/24/2016 2:19 PM EST) Ventricular rate 62 BPM MUSE SYSTEM Atrial Rate 62 BPM MUSE SYSTEM P-R Interval 162 ms MUSE SYSTEM QRS Duration 136 ms MUSE SYSTEM Q-T Interval 428 ms MUSE SYSTEM QTC Calculated (Bezet) 434 ms MUSE SYSTEM Calculated P [place] 72 degrees MUSE SYSTEM Calculated R [place] -49 degrees MUSE SYSTEM Calculated T [place] 3 degrees MUSE SYSTEM INTERPRETATION Normal sinus rhythm Right bundle branch block Left anterior fascicular block Bifascicular block Abnormal ECG When compared with ECG of 24-NOV-2016 07:18, (unconfirmed) No significant change was found Confirmed by MD Alex, Marzena ([id number]) on 11/24/2016 4:54:52 PM MUSE SYSTEM 11/24/2016 2:19 PM EST 11/24/2016 4:54 PM EST Sanford Byrd MD ECG ORDERABLES Performing Organization Address [facility] de Phone Number MUSE SYSTEM * ECHO LMTD W/O CONTRAST (11/24/2016 9:49 AM EST) EF 58 [facility]ART[facility] SYSTEM Anatomical Region Laterality Modality Other 11/24/2016 Narrative 11/24/2016 10:18 AM EST Procedure: ?Transthoracic Echocardiogram Patient: ?MILY Guillory ?(Age): 1950(66y) Med Rec#: ? [id number] ?Sex: ?M ? Site Loc: ? [facility] [place] ?Ht / Wt: ??182(cm)/82(kg) Pt. Loc: ?Adult Floor ? BSA: ?2.03 Study Date: ?? 11/24/2016 ?Pt. Type: Inpatient Tape: ? Referring: Sanford Byrd Reading: Papo Smith ([id number]) Tip Stitcher: Michael Whitaker Diagnosis: *ICD-10-PCS Persistent atrial fibrillation (I48.1) CPT Codes: *Echo LTD (13331) Rhythm: ? Sinus BP: ? 109/73 SUMMARY: 1. Limited follow up study post atrial [...] and systolic function are within normal limits. Findings ? : Study Quality: ? Adequate Left Ventricle: ? The left ventricular chamber size is normal. ?Left ventricular wall thickness is normal. ?There is normal global left ventricular systolic function. ?The quantitative left ventricular ejection fraction by biplane Herrera's method is 58%. ?There are no left ventricular segmental wall motion abnormalities. Right Ventricle: ? Right ventricular chamber size, wall thickness, and systolic function are within normal limits. Pericardium: ? The pericardium appears normal and there is no evidence of a pericardial effusion. Venous: ? The inferior vena cava appears normal in size. Misc: ? Two-dimensional echo performed. Chambers MM ?Value ?Units (Range) ? IVSd (MM) ? 1.1 ?cm (0.3 - 1.1) ? LVPWd (MM) ?1 ?cm (0.6 - 1.1) ? IVS:LVPW ratio ?1.1 ?ratio ? LVIDs (MM) ?3.3 ?cm (2.3 - 3.9) ? LVIDd (MM) ?5.4 ?cm (2.7 - 5.6) ? LVIDd (MM) index ?2.7 ?cm/m2 ? LVIDs (MM) index ?1.6 ?cm/m2 ? LV FS (MM) ?39 ? % (28 - 42) ? Volumes/Mass ?Value ?Units (Range) ? LV ESV SP 4CH (MOD) 34.5 ? ml ? LV ESV SP 2CH (MOD) 30.6 ? ml ? LV EDV BP ? 78.7 ? ml ? LV ESV BP ? 33.3 ? ml ? BP EF (MOD) ? 58 ? % ? LV mass (MM) ?212.4 ?g ? LV mass (MM) index ??104.6 ?g/m2 ? Measurement Trending Name ? 11/24/2016 ? LV EDV BP ?78.7 LV ESV BP ?33.3 LVIDs (MM) ? 3.3 LVIDd (MM) ? 5.39 Wall Motion: Segment Name ?Rest ? Base-Anteroseptal ?? Normal ? Base-Anterior ? Normal ? Base-Anterolateral ??Normal ? Base-Posterolateral Normal ? Base-Inferior ? Normal ? Base-Inferoseptal ?? Normal ? Mid-Anteroseptal ?Normal ? Mid-Anterior ?Normal ? Mid-Anterolateral ?? Normal ? Mid-Posterolateral ??Normal ? Mid-Inferior ?Normal ? Mid-Inferoseptal ?Normal ? Girard-Septal ? Normal ? Girard-Anterior ? Normal ? Girard-Lateral ?Normal ? Girard-Inferior ? Normal ? Girard-Tip ?Normal ? This report has been electronically signed by: Papo Smith MD ? 11/24/2016 10:18:28 Images reviewed and interpretation verified [facility] Cardiac Ultrasound Laboratory Procedure Note Papo Smith MD - 11/24/2016 Procedure: Transthoracic Echocardiogram Patient: MILY CLINTON(Age): 1950(66y) Med Rec#: [id number] Sex: M [place] Loc[place] [facility] [place] [facility] [place]t / Wt: 182(cm)/82(kg) Pt. Loc: Adult Floor BSA: 2.03 Study Date: 11/24/2016 Pt. Type: Inpatient Tape: Referring: Sanford Byrd Reading: Papo Smith ([id number]) Tip Stitcher: Michael Whitaker Diagnosis: *ICD-10-PCS Persistent atrial fibrillation (I48.1) CPT Codes: *Janna [facility] ([id number]) Rhythm: Sinus BP: 109/73 SUMMARY: 1. Limited follow up study post atrial [...] and systolic function are within normal limits. Findings : Study Quality: Adequate Left Ventricle: The left ventricular chamber size is normal. Left ventricular wall thickness is normal. There is normal global left ventricular systolic function. The quantitative left ventricular ejection fraction by biplane Herrera's method is 58%. There are no left ventricular segmental wall motion abnormalities. Right Ventricle: Right ventricular chamber size, wall thickness, and systolic function are within normal limits. Pericardium: The pericardium appears normal and there is no evidence of a pericardial effusion. Venous: The inferior vena cava appears normal in size. Misc: Two-dimensional echo performed. Chambers MM Value Units (Range) IVSd (MM) 1.1 cm (0.3 - 1.1) LVPWd (MM) 1 cm (0.6 - 1.1) IVS:LVPW ratio 1.1 ratio LVIDs (MM) 3.3 cm (2.3 - 3.9) LVIDd (MM) 5.4 cm (2.7 - 5.6) LVIDd (MM) index 2.7 cm/m2 LVIDs (MM) index 1.6 cm/m2 LV FS (MM) 39 % (28 - 42) Volumes/Mass Value Units (Range) LV ESV SP 4CH (MOD) 34.5 ml LV ESV SP 2CH (MOD) 30.6 ml LV EDV BP 78.7 ml LV ESV BP 33.3 ml BP EF (MOD) 58 % LV mass (MM) 212.4 g LV mass (MM) index 104.6 g/m2 Measurement Trending Name 11/24/2016 LV EDV BP 78.7 LV ESV BP 33.3 LVIDs (MM) 3.3 LVIDd (MM) 5.39 Wall Motion: Segment Name Rest Base-Anteroseptal Normal Base-Anterior Normal Base-Anterolateral Normal Base-Posterolateral Normal Base-Inferior Normal Base-Inferoseptal Normal Mid-Anteroseptal Normal Mid-Anterior Normal Mid-Anterolateral Normal Mid-Posterolateral Normal Mid-Inferior Normal Mid-Inferoseptal Normal Girard-Septal Normal Girard-Anterior Normal Girard-Lateral Normal Girard-Inferior Normal Girard-Tip Normal This report has been electronically signed by: Papo Smith MD 11/24/2016 10:18:28 Images reviewed and interpretation verified [facility] Cardiac Ultrasound Laboratory Sanford Byrd MD ECHO ORDERABLES * EKG 12 Lead (11/24/2016 7:18 AM EST) Ventricular rate 58 BPM MUSE SYSTEM Atrial Rate 58 BPM MUSE SYSTEM P-R Interval 158 ms MUSE SYSTEM QRS Duration 132 ms MUSE SYSTEM Q-T Interval 452 ms MUSE SYSTEM QTC Calculated (Bezet) 443 ms MUSE SYSTEM Calculated P [place] 36 degrees MUSE SYSTEM Calculated R [place] -43 degrees MUSE SYSTEM Calculated T [place] -8 degrees MUSE SYSTEM INTERPRETATION Sinus bradycardia Left anterior fascicular block Right bundle branch block Bifascicular block Abnormal ECG When compared with ECG of 23-NOV-2016 06:53, no major changes seen Confirmed by fellow MD Dayron, Arden ([id number]) on 11/24/2016 10:00:38 AM Confirmed by Jerome Aponte MD ([id number]) on 11/24/2016 4:42:29 PM MUSE SYSTEM 11/24/2016 7:18 AM EST 11/24/2016 4:42 PM EST Sanford Byrd MD ECG ORDERABLES MUSE SYSTEM * EKG 12 Lead (11/23/2016 6:53 AM EST) Ventricular rate 86 BPM MUSE SYSTEM Atrial Rate 86 BPM MUSE SYSTEM P-R Interval 152 ms MUSE SYSTEM QRS Duration 134 ms MUSE SYSTEM Q-T Interval 402 ms MUSE SYSTEM QTC Calculated (Bezet) 481 ms MUSE SYSTEM Calculated P [place] 63 degrees MUSE SYSTEM Calculated R [place] -49 degrees MUSE SYSTEM Calculated T [place] 4 degrees MUSE SYSTEM INTERPRETATION Poor data quality Normal sinus rhythm Right bundle branch block Left anterior fascicular block Bifascicular block Abnormal ECG When compared with ECG of 10-SEP-2016 15:59, No significant change was found Confirmed by MD Ajay, Ann-Marie ([id number]) on 11/24/2016 1:42:13 PM MUSE SYSTEM 11/23/2016 6:53 AM EST 11/24/2016 1:42 PM EST Sanford Byrd MD ECG ORDERABLES Performing Organization Address City/[facility]/ZIP Co de Phone Number MUSE SYSTEM * ABORH Recheck Status (11/23/2016 6:34 AM EST) Pathologist [facility] ABORH Type Recheck Completed [facility] Blood specimen (specimen) Venous Draw / Unknown 11/23/2016 6:34 AM EST 11/23/2016 6:39 AM EST Narrative Resulting Agency Comment Spec In Lab Sanford Byrd MD BLOOD BANK LAB ORDER DELICIA Performing Organization Address City/[facility] Co de Phone Number [facility] [place] [place] [address] * Antibody screen manual (11/23/2016 6:34 AM EST) Pathologist [facility] AB Screen Interp Negative [facility] Blood specimen (specimen) Venous Draw / Unknown 11/23/2016 6:34 AM EST 11/23/2016 6:39 AM EST Narrative Resulting Agency Comment Spec In Lab Sanford Byrd MD BLOOD BANK LAB ORDER DELICIA Performing Organization Address City/[facility]/ZIP Co de Phone Number [facility] [place] [address] * ABORh Type Manual (11/23/2016 6:34 AM EST) Pathologist [facility] Expires at [id number] on: 11/26/2016 [facility] ABORH Type O Pos [facility] Blood specimen (specimen) Venous Draw / Unknown 11/23/2016 6:34 AM EST 11/23/2016 6:39 AM EST Narrative Resulting Agency Comment Spec In Lab Sanford Byrd MD BLOOD BANK LAB ORDER DELICIA [facility] [place] [address] * (ABNORMAL) Differential, Automated (11/23/2016 6:34 AM EST) [facility] Neutrophil % 69.6 % [facility] Neutrophil Absolute 3.61 1.70 - 6.10 x10(3)/mc L [facility] Lymph % 16.0 % [facility] Lymphocytes Abs 0.8(L) 0.9 - 3.2 x10(3)/mc L [facility] Monocyte % 12.5 % [facility] Monocyte Abs 0.6 0.3 - 0.9 x10(3)/mc L [facility] Eos % 1.3 % [facility] Eosinophils Abs 0.1 0.0 - 0.4 x10(3)/mc L [facility] Basophil % 0.4 % [facility] Baso Absolute 0.0 0.0 - 0.1 x10(3)/mc L [facility] Immature Gran % 0.20 % [facility] Comment: Immature granulocytes(IG's)percentage and absolute count will include metamyelocytes, myelocytes, and promyelocytes. Blood smears from CBCs yielding IG's will be scanned manually for concordance. If this scan disagrees with the automated IG or if promyelocytes are noted, a manual differential will be performed. Immature Gran Absolute 0.01 0.00 - 0.04 x10(3)/mc L [facility] Blood specimen (specimen) 11/23/2016 6:34 AM EST 11/23/2016 6:42 AM EST Narrative Resulting Agency Comment Spec In Lab Sanford Byrd MD HEMATOLOGY ORDERABLE S [facility] [place] [address] * (ABNORMAL) Hemogram (11/23/2016 6:34 AM EST) White Blood Cell 5.2 4.0 - 9.5 x10(3)/[facility] Red Blood Cell 4.44(L) 4.58 - 5.54 x10(6)/[facility] Hemoglobin 14.7 13.7 - 16.5 gm/dL [facility] Hematocrit 42.0 40.5 - 48.5 % [facility] Mean Cell Volume 94.6(H) 82.9 - 93.1 fL [facility] Mean Cell Hemoglobin 33.1(H) 27.5 - 32.1 pg [facility] Mean Cell Hemoglobin Concentration 35.0 32.0 - 35.7 gm/dL [facility] Platelet 121(L) 145 - 357 x10(3)/[facility] RDW Standard Deviation 41.3 36.0 - 45.0 [facility] RDW coefficient of variation 11.9 11.4 - 13.8 % [facility] Mean Platelet Volume 11.7 7.6 - 12.9 [facility]ORY NRBC% auto 0.0 % [facility] NRBC Absolute 0.000 0.000 - 0.000 x10(3)/[facility] Blood specimen (specimen) 11/23/2016 6:34 AM EST 11/23/2016 6:42 AM EST Narrative Resulting Agency Comment Spec In Lab Sanford Byrd MD HEMATOLOGY ORDERABLE S [facility] [place] [address] * (ABNORMAL) BMP w/fasting Glucose (11/23/2016 6:34 AM EST) Glucose Fasting 105(H) 65 - 99 mg/dL [facility] Comment: ?Fasting* Glucose Interpretive Criteria Normal ?65-99 mg/dL Impaired Fasting glucose ?100-125 mg/dL Consistent with Diabetes Mellitus ? >or= 126 mg/dL *Fasting is defined as no caloric intake for at least 8 hours In the absence of unequivocal hyperglycemia a plasma glucose value of >or= 126 mg/dL should be repeated on a subsequent day. Diagnosis and Classification of Diabetes Mellitus, Position Statement from the [place] [employer]. ??Diabetes Care, Volume 33, Supplement 1, Nov 2009 Blood Urea Nitrogen 23(H) 10 - 20 mg/dL [facility] Creatinine 1.06 0.80 - 1.50 mg/dL [facility] Comment: Please note that the pediatric reference intervals supplied above were not validated at [facility] [place] [facility] [place]. Results from pediatric patients should be interpreted in conjunction to the patient's age, height and muscle mass. Sodium 143 135 - 145 mmol/L [facility] Potassium 4.5 3.5 - 5.0 mmol/L [facility] Comment: Please note: ??Patients with WBC >100,000 may have falsely elevated Potassium levels. ??For accurate Potassium quantification in these patients send serum separator tube (gold top) for subsequent determinations. ??Contact the Clinical Chemistry Laboratory if there are any questions. Chloride 105 98 - 107 mmol/L [facility] Carbon Dioxide 26 22 - 31 mmol/L [facility] Anion Gap 12 5 - 15 mmol/L [facility] Calcium 9.2 8.5 - 10.5 mg/dL [facility] Est Glomerular Filtration Rate >60 >=60 [facility] Comment: This estimated GFR (eGFR) value was calculated using the MDRD equation which has been validated on patients between the ages of 18 and 70. The MDRD should not be used to assess kidney function in patients < 18 years of age or in patients with extremes of body mass, or in patients with acute kidney failure. This value should be multiplied by 1.2 for patients. For further information please copy and paste the following links into your internet browser. [email or web address] Blood specimen (specimen) 11/23/2016 6:34 AM EST 11/23/2016 6:41 AM EST Narrative Resulting Agency Comment Spec In Lab Sanford Byrd MD CHEMISTRY ORDERABLES Performing Organization Address [facility] de Phone Number [facility] [place] [address] * Prothrombin Time (11/23/2016 6:34 AM EST) Prothrombin Time 13.2 12.0 - 15.0 sec [facility] Comment: An INR <2.0 indicates adequate procoagulant activity for hemostasis in most patients without underlying bleeding disorders, though the INR may not adequately reflect hemostatic capacity in patients with liver disease and synthetic impairment. The recommended target INR range for therapeutic anticoagulation is 2.0 ? 3.0 for most applications, though lower and higher ranges may be appropriate depending on clinical circumstances. International Normalization Ratio 1.0 0.9 - 1.1 [facility] Blood specimen (specimen) 11/23/2016 6:34 AM EST 11/23/2016 6:41 AM EST Narrative Resulting Agency Comment Spec In Lab Sanford Byrd MD HEMATOLOGY ORDERABLE S Performing Organization Address [facility] Co de Phone Number [facility] [address] documented in this encounter Visit Diagnoses Diagnosis Persistent atrial fibrillation Atrial fibrillation A-fib Atrial fibrillation Adverse drug effects Unspecified adverse effect of unspecified drug, medicinal and biological substance History of surgery documented in this encounter Admitting Diagnoses Diagnosis AF (atrial fibrillation) Atrial fibrillation documented in this encounter Administered Medications Inactive Administered Medications - up to 3 most recent administrations Medication Order MAR Action Action Date Dose Rate Site acetaminophen (TYLENOL) tablet 1,000 mg 1,000 mg, Oral, EVERY 8 HOURS PRN, Starting on Wed11/23/16 at 1319, Until Wed11/25/16 at 1440, Pain, Maximum dose of acetaminophen is 4000 mg from all sources in 24 hours., Routine Given 11/24/2016 5:57 AM EST 1,000 mg Given 11/23/2016 1:43 PM EST 1,000 mg alum-mag hydroxide-simeth (MAALOX) 200-200-20 mg/5 mL oral suspension 10 mL 10 mL, Oral, 3 TIMES DAILY PRN, Starting on Wed11/24/16 at 1344, Until Wed11/25/16 at 1440, Heartburn, Routine Given 11/24/2016 6:13 PM EST 10 mLs apixaban (ELIQUIS) tablet Tab 5 mg 5 mg, Oral, 2 TIMES DAILY, First dose on Wed11/23/16 at 2100, Until Discontinued, Anticoagulant, Routine, Restricted anticoagulant, choose the most appropriate response: Continuation of ongoing therapy Given 11/25/2016 9:23 AM EST 5 mg Given 11/24/2016 9:03 PM EST 5 mg Given 11/24/2016 8:57 AM EST 5 mg baclofen (LIORESAL) tablet 10 mg 10 mg, Oral, NIGHTLY, First dose on Wed11/23/16 at 2100, Until Discontinued, Routine Given 11/24/2016 9:03 PM EST 10 mg Given 11/24/2016 8:57 AM EST 10 mg Given 11/23/2016 9:29 PM EST 10 mg BUpivacaine (PF) (MARCAINE) 0.5 % (5 mg/mL) injection 150 mg 150 mg (30 mL), Subcutaneous, ONCE, 1 dose, On Wed11/23/16 at 1000, EP (Intra-Procedure), Routine Given 11/23/2016 9:00 AM EST 150 mg famotidine (PEPCID) tablet 20 mg 20 mg, Oral, 2 TIMES DAILY, First dose on Wed11/23/16 at 2100, Until Discontinued, Routine Given 11/25/2016 9:23 AM EST 20 mg Given 11/24/2016 9:03 PM EST 20 mg Given 11/24/2016 8:57 AM EST 20 mg levothyroxine (SYNTHROID) tablet 100 mcg 100 mcg, Oral, EVERY MORNING, First dose on Wed11/24/16 at 0600, Until Discontinued, Routine Given 11/25/2016 5:37 AM EST 100 mcg Given 11/24/2016 5:56 AM EST 100 mcg lidocaine (URO-JET) 2 % gel 10 mL 10 mL, INTRA-URETHRAL, ONCE, 1 dose, On Wed11/23/16 at 1000, EP (Intra-Procedure), Routine Given 11/23/2016 8:00 AM EST 10 mLs lidocaine (XYLOCAINE) 10 mg/mL (1 %) injection 3 mg 3 mg (0.3 mL), Subcutaneous, ONCE PRN, 1 dose, Starting on Wed11/23/16 at 0645, Until Wed11/23/16 at 0706, for discomfort with PIV insertion, Day of Surgery (Day of Procedure), Routine Given 11/23/2016 7:06 AM EST 3 mg lidocaine (XYLOCAINE) 20 mg/mL (2 %) injection 400 mg 400 mg (20 mL), Subcutaneous, ONCE, 1 dose, On Wed11/23/16 at 1000, EP (Intra-Procedure), Routine Given 11/23/2016 9:00 AM EST 400 mg metoclopramide (REGLAN) injection 10 mg 10 mg, Intravenous, ONCE, 1 dose, On Wed11/23/16 at 1945, Doses greater than 10mg should be diluted into 50ml NS. Given 11/23/2016 8:21 PM EST 10 mg meTOPROLOL succinate (TOPROL-XL) XL tablet 150 mg 150 mg, Oral, DAILY, First dose on Wed11/23/16 at 1600, Until Discontinued, DO NOT CRUSH OR OPEN, Routine Given 11/25/2016 9:23 AM EST 150 mg Given 11/24/2016 12:39 PM EST 150 mg Given 11/23/2016 3:24 PM EST 150 mg ondansetron (ZOFRAN) tablet 4 mg 4 mg, Oral, EVERY 8 HOURS PRN, Starting on Wed11/23/16 at 1720, Until Wed11/25/16 at 1440, Nausea, Routine Given 11/23/2016 5:47 PM EST 4 mg oxyCODONE (ROXICODONE) immediate release tablet 15 mg 15 mg, Oral, EVERY 4 HOURS PRN, Starting on Wed11/23/16 at 1256, Until Wed11/25/16 at 1440, Pain, Routine Given 11/23/2016 1:43 PM EST 15 mg pantoprazole (PROTONIX) tablet 40 mg 40 mg, Oral, DAILY, First dose on Wed11/24/16 at 0900, Until Discontinued, DO NOT CRUSH OR OPEN Given 11/25/2016 9:23 AM EST 40 mg Given 11/24/2016 8:59 AM EST 40 mg simvastatin (ZOCOR) tablet 10 mg 10 mg, Oral, EVERY EVENING, First dose on Wed11/23/16 at 1700, Until Discontinued Given 11/24/2016 4:58 PM EST 10 mg Given 11/23/2016 9:29 PM EST 10 mg sodium chloride 0.9% infusion 75 mL/hr, Intravenous, CONTINUOUS, Starting on Wed11/23/16 at 0715, Until Wed11/23/16 at 1256, Day of Surgery (Day of Procedure) New Bag 11/23/2016 7:06 AM EST 75 mL/hr 75 m L/hr sucralfate (CARAFATE) 100 mg/mL oral suspension 1 g 1 g, Oral, EVERY 6 HOURS SCHEDULED, First dose on Wed11/24/16 at 1330, Until Discontinued, Routine Given 11/25/2016 9:23 AM EST 1 g Given 11/25/2016 3:01 AM EST 1 g Given 11/24/2016 9:03 PM EST 1 g valACYclovir (VALTREX) tablet 500 mg 500 mg, Oral, DAILY, First dose on Wed11/24/16 at 0900, Until Discontinued, Routine, Indication for (Active or Suspected): Other (See comment) Given 11/25/2016 9:23 AM EST 500 mg Given 11/24/2016 8:57 AM EST 500 mg verapamil (CALAN-SR) CR tablet 120 mg 120 mg, Oral, NIGHTLY, First dose on Wed11/23/16 at 2100, Until Discontinued, DO NOT CRUSH OR OPEN, Routine Given 11/24/2016 9:03 PM EST 120 mg Given 11/23/2016 9:29 PM EST 120 mg zolpidem (AMBIEN) tablet 5 mg 5 mg, Oral, NIGHTLY PRN, Starting on Wed11/23/16 at 1453, Until Wed11/25/16 at 1440, ., Routine Given 11/24/2016 10:30 PM EST 5 mg Given 11/24/2016 12:03 AM EST 5 mg documented in this encounter Active and Recently Administered Medications Times are shown in EST. Scheduled Medication Order 11/23/2016 11/24/2016 11/25/2016 apixaban (ELIQUIS) tablet Tab 5 mg 5 mg, Oral, 2 TIMES DAILY, First dose on Wed11/23/16 at 2100, Until Discontinued, Anticoagulant, Routine, Restricted anticoagulant, choose the most appropriate response: Continuation of ongoing therapy 2128 (Given - Provider: Elke Hernandez RN) 856 (Given - Provider: Sulema Palomo RN)2102 (Given - Provider: Elke Hernandez RN) 922 (Given - Provider: Sulema Palomo, TORREY) baclofen (LIORESAL) tablet 10 mg 10 mg, Oral, NIGHTLY, First dose on Wed11/23/16 at 2100, Until Discontinued, Routine 2128 (Given - Provider: Elke Hernandez RN) 856 (Given - Provider: Sulema Palomo RN)2102 (Given - Provider: Elke Hernandez RN) BUpivacaine (PF) (MARCAINE) 0.5 % (5 mg/mL) injection 150 mg (COMPLETED) 150 mg (30 mL), Subcutaneous, ONCE, 1 dose, On Wed11/23/16 at 1000, EP (Intra-Procedure), Routine 0900 (Given - Provider: Toshia Jean RN) famotidine (PEPCID) tablet 20 mg 20 mg, Oral, 2 TIMES DAILY, First dose on Wed11/23/16 at 2100, Until Discontinued, Routine 2128 (Given - Provider: Elke Hernandez RN) 08 (Given - Provider: Sulema Palomo RN)2102 (Given - Provider: Elke Hernandez RN) 922 (Given - Provider: Sulema Palomo, TORREY) levothyroxine (SYNTHROID) tablet 100 mcg 100 mcg, Oral, EVERY MORNING, First dose on Wed11/24/16 at 0600, Until Discontinued, Routine 0556 (Given - Provider: Elke Hernandez RN) 0537 (Given - Provider: Elke Hernandez RN) lidocaine (URO-JET) 2 % gel 10 mL (COMPLETED) 10 mL, INTRA-URETHRAL, ONCE, 1 dose, On Wed11/23/16 at 1000, EP (Intra-Procedure), Routine 0800 (Given - Provider: Toshia Jean RN) lidocaine (XYLOCAINE) 20 mg/mL (2 %) injection 400 mg (COMPLETED) 400 mg (20 mL), Subcutaneous, ONCE, 1 dose, On Wed11/23/16 at 1000, EP (Intra-Procedure), Routine 0900 (Given - Provider: Toshia Jean RN) metoclopramide (REGLAN) injection 10 mg (COMPLETED) 10 mg, Intravenous, ONCE, 1 dose, On Wed11/23/16 at 1945, Doses greater than 10mg should be diluted into 50ml NS. 2020 (Given - Provider: Elke Hernandez RN) meTOPROLOL succinate (TOPROL-XL) XL tablet 150 mg 150 mg, Oral, DAILY, First dose on Wed11/23/16 at 1600, Until Discontinued, DO NOT CRUSH OR OPEN, Routine 1524 (Given - Provider: Deborah Lang RN) 1239 (Given - Provider: Sulema Palomo RN) 0923 (Given - Provider: Sulema Palomo, TORREY) pantoprazole (PROTONIX) tablet 40 mg 40 mg, Oral, DAILY, First dose on Wed11/24/16 at 0900, Until Discontinued, DO NOT CRUSH OR OPEN 0859 (Given - Provider: Sulema Palomo, TORREY) 0923 (Given - Provider: Sulema Palomo, TORREY) simvastatin (ZOCOR) tablet 10 mg 10 mg, Oral, EVERY EVENING, First dose on Wed11/23/16 at 1700, Until Discontinued 1700 (Not Given - Provider: Deborah aLng RN - Reason: Patient/family refused - Comment: patient nasueous, takes at 2000)212 (Given - Provider: Elke Hernandez RN - Comment: patient request home schedule. nsausous at 1700 rescheduled) 1658 (Given - Provider: Sulema Palomo, TORREY) sucralfate (CARAFATE) 100 mg/mL oral suspension 1 g 1 g, Oral, EVERY 6 HOURS SCHEDULED, First dose on Wed11/24/16 at 1330, Until Discontinued, Routine 1419 (Given - Provider: Sulema Palomo RN)210 (Given - Provider: Elke Hernandez RN) 030 (Given - Provider: Elke Hernandez RN)0923 (Given - Provider: Sulema Palomo RN) valACYclovir (VALTREX) tablet 500 mg 500 mg, Oral, DAILY, First dose on Wed11/24/16 at 0900, Until Discontinued, Routine, Indication for (Active or Suspected): Other (See comment) 0857 (Given - Provider: Sulema Palomo RN) 09 (Given - Provider: Sulema Palomo RN) verapamil (CALAN-SR) CR tablet 120 mg 120 mg, Oral, NIGHTLY, First dose on Wed11/23/16 at 2100, Until Discontinued, DO NOT CRUSH OR OPEN, Routine 2128 (Given - Provider: Elke Hernandez RN) 2102 (Given - Provider: Elke Hernandez RN) Continuous Medication Order 11/23/2016 11/24/2016 11/25/2016 sodium chloride 0.9% infusion (CANCELED) 75 mL/hr, Intravenous, CONTINUOUS, Starting on Wed11/23/16 at 0715, Until Wed11/23/16 at 1256, Day of Surgery (Day of Procedure) 0706 (New Bag - Provider: Christina Saini RN)0846 (Anesthesia Volume Adjustment - Provider: Florence Cowan CRNA)0911 (Stopped - Provider: Florence Cowan CRNA) PRN Medication Order 11/23/2016 11/24/2016 11/25/2016 acetaminophen (TYLENOL) tablet 1,000 mg 1,000 mg, Oral, EVERY 8 HOURS PRN, Starting on Wed11/23/16 at 1319, Until Wed11/25/16 at 1440, Pain, Maximum dose of acetaminophen is 4000 mg from all sources in 24 hours., Routine 1343 (Given - Provider: Shahida Boyer RN) 0557 (Given - Provider: Elke Hernandez RN) alum-mag hydroxide-simeth (MAALOX) 200-200-20 mg/5 mL oral suspension 10 mL 10 mL, Oral, 3 TIMES DAILY PRN, Starting on Wed11/24/16 at 1344, Until Wed11/25/16 at 1440, Heartburn, Routine 1813 (Given - Provider: Sulema Palomo, TORREY) lidocaine (XYLOCAINE) 10 mg/mL (1 %) injection 3 mg (COMPLETED) 3 mg (0.3 mL), Subcutaneous, ONCE PRN, 1 dose, Starting on Wed11/23/16 at 0645, Until Wed11/23/16 at 0706, for discomfort with PIV insertion, Day of Surgery (Day of Procedure), Routine 0706 (Given - Provider: Christina Saini RN) ondansetron (ZOFRAN) tablet 4 mg 4 mg, Oral, EVERY 8 HOURS PRN, Starting on Wed11/23/16 at 1720, Until Wed11/25/16 at 1440, Nausea, Routine 1747 (Given - Provider: Deborah Lang RN) oxyCODONE (ROXICODONE) immediate release tablet 15 mg 15 mg, Oral, EVERY 4 HOURS PRN, Starting on Wed11/23/16 at 1256, Until Wed11/25/16 at 1440, Pain, Routine 1343 (Given - Provider: Shahida Boyer, TORREY) zolpidem (AMBIEN) tablet 5 mg 5 mg, Oral, NIGHTLY PRN, Starting on Wed11/23/16 at 1453, Until Wed11/25/16 at 1440, ., Routine 0003 (Given - Provider: Elke Hernandez RN)2230 (Given - Provider: Elke Hernandez, TORREY) documented in this encounter Care Teams Sandwich Maker Relationship Specialty Start Date End Date Radha Mckeon MD [address] [place] [address] PCP - General 09/23/10 documented as of this encounter
--- OUTSIDE RECORDS SUMMARY | 2024-07-24 17:30 | XMS_ITS | Encounter Summary ---
Author Organization [facility] [place] [address] Care Team Providers Care Welder Gas Name Role Phone Radha Mckeon MD Primary Care Provider [phone] Encounter Details Date Type Department Care Team (Latest Contact Info) Description 12/02/2017 2:00 PM EST - 12/02/2017 11:59 PM [facility] Hospital Encounter Non-Invasive [place] [address] Christina Lopez APRN [facility] [place] [address] Discharge Disposition: Home Social History Tobacco Use [...] (Tylenol) 500 mg tablet as needed. 01/16/2017 BOTOX 200 unit Recon Soln Inject 200 [...] tablet Take 10 mg by mouth nightly. omeprazole (PRILOSEC) 20 mg Capsule, Delayed Release(E.C.) Take 20 mg by mouth 2 times daily. 10/07/2017 08/03/2023 gabapentin (NEURONTIN) 300 mg Capsule Take 300 [...] nightly. 03/18/2016 12/13/2018 SUMAtriptan (IMITREX) 20 mg/actuation [place], Non-Aerosol 1 spray by Nasal route as [...] AM EDT Hospital Encounter Non-Invasive [place] [phone] Arrived 02/22/2025 1:30 PM EDT Appointment H[place]ology [place] [phone] 02/22/2025 2:30 PM EDT Office Visit Hematology [place] [phone] Ellis Childers MD [facility] [place] [address] Felicita Landa APRN [facility] [place] [address] documented as of this encounter Procedures Procedure Name Priority Date/Time Associated Diagnosis Comments PIERO Routine 12/02/2017 3:22 PM EST Status post ablation of atrial fibrillation documented in this encounter Results * [place] (12/02/2017 3:22 PM EST) Anatomical Region Laterality Modality Other Narrative 12/30/2017 5:23 PM EST [facility] ? Zio Patch? Ambulatory Cardiac [...] on filedocumented in this encounter Care Teams Welder Gas Relationship Specialty Start Date End Date Radha Mckeon MD [address] [place] [address] PCP - General 09/23/10 documented as of this encounter
--- OUTSIDE RECORDS SUMMARY | 2024-07-24 17:30 | XMS_ITS | Encounter Summary ---
Author Organization [facility] [address] Care Team Providers Care Rag Sorter And Cutter Name Role Phone Radha Mckeon MD Primary Care Provider [phone] Encounter Details Date Type Department Care Team (Late st Contact Info) Description 08/17/2017 11:00 AM EDT Office Visit Cardiology at [address] [phone] Diogo Robb PA [facility] [place] [address] Heart palpitations Social History Tobacco Use Types [...] Sign Reading Time Taken Comments Blood Pressure 131/70 08/17/2017 11:17 AM EDT Pulse 60 08/17/2017 11:17 AM EDT Temperature - - Respiratory Rate - - Oxygen Saturation 96% 08/17/2017 11:17 AM EDT Inhaled Oxygen Concentration - - Weight 81.6 kg (180 lb) 08/17/2017 11:17 AM EDT Height 180.3 cm (5' 11) 08/17/2017 11:17 AM EDT Body Mass Index 25.1 08/17/2017 11:17 AM EDT documented in this encounter Progress Notes * Diogo Robb PA - 08/17/2017 11:00 AM EDT Subjective: Patient ID: Malik Machado is a 67 y.o. male. HPI 67yo man with complex arrythmia hx presents for follow up. Mr Machado underwent repeat afib ablation(11/23/2016). He has had a complicated history with periodic episodes of lightheadedness and near syncope. He has checked his pulse around the time of the events and feels as though it is neither veryfast nor very slow and it is regular. He is currently on metoprolol 150mg and 120mg of verapamil. He does not take blood pressure at home though these episodes seem not to be positional. He has knownRBBB and LAHB. I elected to try stopping his verapamil in the event his symptoms were related to hypotension(12/17). He did this and has continued to have occasional episodes(4) though he feels as though they were less severe. He denies syncope. He has been under extreme personal stress related to issues regarding his son. Patient Active Problem List Diagnosis ??? A-fib Overview Note: --Recurrent AF --S/P cardioversions x 3 (09/2005, 01/2006, 07/2007). --AF that has resolved spontaneously (12/2006, etc). 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 --Flecainide stopped after 4 doses due to DC/QRS prolongation, 12/2007. --Started on dofetilide 500mcg BID [...] of periodic palpitations 2015. -- Admitted to [facility] 08/27/16, with A. fib at a [...] --Amitriptyline (palpitations), Lipitor (liver enzyme abnormalities), flecainide (DC/QRS prolongation noted 12/2007). ??? History of surgery [...] mouth nightly. ??? SUMAtriptan (IMITREX) 20 mg/actuation [place], Non-Aerosol 1 spray by Nasal route as needed. For migraines ??? valACYclovir (VALTREX) 500 mg Tablet Take 500 mg by mouth daily. ??? oxyCODONE (ROXICODONE) 15 mg Tablet Take 15 mg by mouth every 4 hours as needed for Pain. ??? MULTIVITAMIN W-MINERALS/LUTEIN (CENTRUM SILVER ORAL) Take 1 tablet by mouth. ??? [place]-3 Fatty Acids-Vitamin E (FISH OIL) 1,000 mg [...] 12 lead EK08/17/2017 Sinus bradycardia @ 53; DC 168; QRS 140; QTc 414ms; RBBB and [...] and there isno objective indication of this. ?? We discussed possible etiologies and it remains unclear whether this is mediated by BP, pulse rate or something else. BP anecdotally has either been normal or hypertensive. Rather than further tinkering with his medications, he is in favor, as am I, to gather information about BP during episodes. He will obtain a cuff and keep a log. If he does not exhibit hypotension, I would try increasing his verapamil. If hypotensive however, his medication options are more limited. ?? Plan EP follow up in 2-3 months. ? Provider: ANDREE Shelley Provider#: [id number] Consult attending physician: Cynthia Byrd MD ? documented in this encounter Plan of Treatment Upcoming Encounters Date Type Department Care Team (Late st Contact Info) Description 08/18/2024 11:00 AM EDT Hospital Encounter Non-[place]vasive [place] [address] Arrived 02/22/2025 1:30 PM EDT Appointment Hematology and Oncology at [address] 02/22/2025 2:30 PM EDT Office Visit Hematology and Oncology at [place] [address] Ellis Childers MD [facility] [address] [place] [address] Felicita Landa APRN [facility] [address] [place] [address] documented as of this encounter Procedures Procedure Name Priority Date/Time Associated Diagnosis Comments LAB SCAN 11/04/2017 12:00 AM EST ECG SCAN 11/04/2017 12:00 AM EST EKG 12-LEAD Routine 08/17/2017 11:32 AM EDT Heart palpitations documented in this encounter Results * SCAN DOC: LAB (11/04/2017 12:00 AM EST) Narrative 11/04/2017 12:00 AM EST Ordered by an unspecified provider. Scanning Provider MEDIA MGR SCAN EXT O RDR/RSLT * SCAN DOC: ECG (11/04/2017 12:00 AM EST) Narrative 11/04/2017 12:00 AM EST Ordered by an unspecified provider. Scanning Provider MEDIA MGR SCAN EXT O RDR/RSLT * EKG 12 Lead (08/17/2017 11:32 AM EDT) Ventricular rate 53 BPM MUSE SYSTEM Atrial Rate 53 BPM MUSE SYSTEM P-R Interval 168 ms MUSE SYSTEM QRS Duration 140 ms MUSE SYSTEM Q-T Interval 442 ms MUSE SYSTEM QTC Calculated (Bezet) 414 ms MUSE SYSTEM Calculated P [place] 26 degrees MUSE SYSTEM Calculated R [place] -45 degrees MUSE SYSTEM Calculated T [place] 4 degrees MUSE SYSTEM INTERPRETATION Sinus bradycardia Right bundle branch block Left anterior fascicular block Bifascicular block Abnormal ECG When compared with ECG of 16-JAN-2017 19:13, No significant change was found Confirmed by MD Donovan, Meek ([id number]) on 08/17/2017 5:23:29 PM MUSE SYSTEM 08/17/2017 11:3 2 AM EDT 08/17/2017 5:23 PM EDT Sanford Byrd MD ECG ORDERABLES MUSE SYSTEM documented in this encounter Visit Diagnoses Diagnosis Heart palpitations Palpitations documented in this encounter Care Teams Rag Sorter And Cutter Relationship Specialty Start Date End Date Radha Mckeon MD [address] [place] [address] PCP - General 09/23/10 documented as of this encounter
--- OUTSIDE RECORDS SUMMARY | 2024-07-24 17:30 | XMS_ITS | Encounter Summary ---
Author Organization [facility] [place] [address] Care Team Providers Care Instructor Adjunct Surgical Technician Name Role Phone Radha Mckeon MD Primary Care Provider [phone] Encounter Details Date Type Department Care Team (Late st Contact Info) Description 12/16/2016 Telephone Cardiology at [address] [phone] Diogo Robb PA [facility] [place] [address] Social History Tobacco Use Types Packs/Day Years [...] encounter Miscellaneous Notes * Telephone Encounter - Tricia Braga RN - 12/17/2016 12:40 PM EST He reports 6-7 significant dizzy spells since the ablation 11/23. Yesterday he had 2 spells where henearly blacked out. Each lasts 2-3 minutes. He knows his pulse is steady, but thinks it is slow. Not sure of rate, and does not have a BP cuff. * Telephone Encounter - Rosanna Altamirano - 12/16/2016 3:05 PM EST Matteo, Mr. Machado called to let you know that he has been having dizzy spells. He would like to speak to you regarding these. He is in a 2 hour meeting this afternoon but should be available around 5pm on his cell phone at [phone]. You can also call him on his home phone after 6pm at [phone]. He had an afib ablation done on 11/23/[address] Byrd and has a RBBB. Arturo, Magdalena documented in this encounter Plan of Treatment Upcoming Encounters Date Type Department Care Team (Late st Contact Info) Description 08/18/2024 11:00 AM EDT Hospital Encounter Non-[place] [phone] Arrived 02/22/2025 1:30 PM EDT Appointment Hematology [place] [address] 02/22/2025 2:30 PM EDT Office Visit Hematology and Oncology at [place] [phone] Ellis Childers MD [facility] DR HEMATOLOGY [place] [address] Felicita Landa APRN [facility] HEMATOLOGY [place] [address] documented as of this encounter Visit Diagnoses Not on filedocumented in this encounter Care Teams Instructor Adjunct Surgical Technician Relationship Specialty Start Date End Date Radha Mckeon MD [address] [place] [address] PCP - General 09/23/10 documented as of this encounter
--- OUTSIDE RECORDS SUMMARY | 2024-07-24 17:30 | XMS_ITS | Encounter Summary ---
[place] [address] Care Team Providers Care Turning And Beading Machine Operator Name Role Phone Radha Mckeon MD Primary Care Provider [phone] Reason for Visit * Reason Comments Pain Management Encounter Details Date Type Department Care Team (Late st Contact Info) Description 01/11/2018 1:45 PM EDT Office Visit [place] [address] Zenaida Orta, [facility] [address] Chronic back pain, causing disability Social History [...] Sign Reading Time Taken Comments Blood Pressure 126/75 01/11/2018 1:56 PM EDT Pulse 61 01/11/2018 1:56 PM EDT Temperature - - Respiratory Rate - - Oxygen Saturation 100% 01/11/2018 1:56 PM EDT Inhaled Oxygen Concentration - - Weight 85.7 kg (189 lb) 01/11/2018 1:56 PM EDT p t stated Height - - Body Mass Index 26.36 12/02/2017 1:33 PM EST documented in this encounter Progress Notes * Zenaida Orta, CIVIL ATTORNEY - 01/11/2018 1:45 PM EDT [facility] [place] [address] Phone: PAIN MANAGEMENT NEW PATIENT / CONSULTATION NOTE DATE OF VISIT 01/11/2018 Patient Malik Machado 1950 REFERRING PROVIDER Radha Mckeon MD [address] [place] [address] PRIMARY CARE PROVIDER Radha Mckeon MD CHIEF COMPLAINT: Malik Machado is a 67 y.o. male with great toe pain , back pain and newer inset of right arm pain,who is seen in consultation at the request of Ms Mckeon for evaluation, recommendations, and management.The history is obtained from the patient, and I have reviewed medical records provided by the referring physician and located in the electronic medical record to fill in gaps in the patient's recollection of events, treatments and outcomes. Goal of visit: to re-establish care, a former patient of Dr Royal Have you ever gone to another pain center?N Reason for leaving:NA HPI The patient is a former patient of Dr. Royal who has been seeing him since 2005. He was diagnosed with arachnoiditis. He also had hadSeveral prior back surgeries including 2 anterior posterior fusions and then revision. He has had chronic back pain and radiating pain for years and has been managing it predominately with martial arts, oxycodone which she takes sparingly and gabapentin. Recently, in the last 3 months is also had some arm pain about 1-3 times a week which is a strong burning and stinging pain in the right proximal arm. He is here to see if there are any other options for himfor pain management. He does not wish to have injections, he is not interested in opiates. He uses oxycodone prescribed by his primary care provider, Radha slater. Most recent MRI or Xray: No recent images to review. I reviewed his 2006 MRI which does appear to show some clumping of the nerve roots. He has been told he has arachnoiditis by Dr. Mi PAIN ASSESSMENT: Description: Strong burning and stingins Weakness, numbness, tingling:right arm, drops things Saddle Anesthesia: no Other associated symptoms: no Alleviating factors:no Aggravating factors:no Ave past week: FUNCTIONAL HISTORY Work:disbaled # of missed days from work past month due to pain: NA Interference with activities/ADL:yes Exercise/activities: exercises How do you spend your day? Martial arts CURRENT THERAPIES: oxycodone PAST THERAPIES: Acetaminophen:yes NSAID:yes Opioids:tried Storage of opioids:NA Antidepressants:gabappentin Anticonvulsants:no Muscle relaxants: yes Topicals:no Herbal supplements/vitamins:no Injections:no Surgery:yes Physical Therapy:yes TENS: no Acupuncture:yes Chiropractic:no Massage: no CBT,Meditation/Imagery:no Yoga/Josiah Chi/ Movement:martia arts Marijuana:no Other:no REVIEW OF SYSTEMS: Constitutional: denies fever, chills, cough, signs of infection, weight changes, fatigue HEENT: Denies headaches, blurry/limited vision, photophobia, difficulty hearing, Cardiac:denies chest pain or pressure, lower extremity edema Lungs: denies SOB on exertion GI: denies constipation or diarrhea, black tarry stool, loss of control; : denies frequency, urgency, hesitation, or incontinence Neuro: denies dizziness, numbness, seizures, tremors Muscle skeletal: denies use of ambulatory aide, falls Skin: denies open sores or rashes Psychological/Mood: ok Sleep:interrupted, not slept well since lost daughter a year ago RELEVANT SOCIAL HISTORY: Lives with: Smoking:quit in 1982 Alcohol: present and past: no Illegal/prescription drug misuse past/present:no Are you now or in past received methadone or suboxone (buprenorphine) for substance abuse? no Ever participated in drug or alcohol rehabilitation program? no Share your pain medications or accepted pain medications from family/friends?no Financial concerns:no Addiction Behaviors Checklist (NA = not assessed) Addiction behaviors--since last visit 1. Patient used illicit drugs or evidences problem drinking* no 2. Patient has hoarded meds no 3. Patient used more narcotic than prescribed no 4. Patient ran out of meds early no 5. Patient has increased use of narcotics no 6. Patient used analgesics PRN when prescription is for time contingent use no 7. Patient received narcotics from more than one provider no 8. Patient bought meds on the streets no Addiction behaviors--within current visit 1. Patient appears sedated or confused (e.g., slurred speech, unresponsive) no 2. Patient expresses worries about addiction no 3. Patient expressed a strong preference for a specific type of analgesic or a specific route of administration no 4. Patient expresses concern about future availability of narcotic no 5. Patient reports worsened relationships with family no 6. Patient misrepresented analgesic prescription or use no 7. Patient indicated she or he ?needs? or ?must have? analgesic meds no 8. Discussion of analgesic meds was the predominant issue of visit no 9. Patient exhibited lack of interest in rehab or self-management no 10. Patient reports minimal/inadequate relief from narcotic analgesic no 11. Patient indicated difficulty with using medication agreement no Other 1. Significant others express concern over patient???s use of analgesics no ABC Score: __0____ Score of >=3 indicates possible inappropriate opioid use and should flag for further examinationof specific signs of misuse and more careful patient monitoring (i.e., urine screening, pill counts, removal of opioid). MEDICATIONS [facility] Prescription Monitoring Program was checked and no concerns were identified. Medications 01/11/18 7794 Medication Sig Taking? omeprazole (PRILOSEC) 20 mg Capsule, Delayed Release(E.C.) 20 mg 2 times daily. Yes BOTOX 200 unit Recon Soln Yes meTOPROLOL succinate (TOPROL-XL) 100 mg Tablet Sustained Release 24 hr Take 1.5 tablets by mouth daily. Yes gabapentin (NEURONTIN) 300 mg Capsule nightly. Yes QUEtiapine (SEROQUEL) 25 mg Tablet 25 mg nightly. Yes verapamil (CALAN-SR) 120 mg Tablet Sustained Release Take 1 tablet by mouth daily. Yes levothyroxine (SYNTHROID) 100 mcg Tablet Take 100 mcg by mouth daily. Yes apixaban (ELIQUIS) 5 mg Tablet Take 5 mg by mouth 2 times daily. Yes ranitidine (ZANTAC) 150 mg Tablet Take 150 mg by mouth nightly. Yes SUMAtriptan (IMITREX) 20 mg/actuation [place], Non-Aerosol 1 spray by Nasal route as needed. For migraines Yes valACYclovir (VALTREX) 500 mg Tablet Take 500 mg by mouth daily. Yes oxyCODONE (ROXICODONE) 15 mg Tablet Take 15 mg by mouth every 4 hours as needed for Pain. Yes MULTIVITAMIN W-MINERALS/LUTEIN (CENTRUM SILVER ORAL) Take 1 tablet by mouth. Yes [place]-3 Fatty Acids-Vitamin E (FISH OIL) 1,000 mg Cap Take 1,000 mg by mouth 2 times daily. Yes acetaminophen (TYLENOL) 500 mg tablet Take 1,000 mg by mouth as needed. Indications: Headache Disorder, Pain Yes baclofen (LIORESAL) 10 mg tablet Take 10 mg by mouth nightly. Yes simvastatin (ZOCOR) 10 mg tablet Take 10 mg by mouth nightly. Yes zolpidem (AMBIEN) 5 mg tablet Take 5 mg by mouth nightly as needed. 1 to 2 tabs hs prn Yes glucosamine-chondroitin 500-400 mg tablet Yes ADVERSE DRUG REACTIONS Allergies as of 01/11/2018 - Review Complete 01/11/2018 Allergen Reaction Noted ??? Amitriptyline hcl Palpitations MEDICAL HISTORY Past Medical History: Diagnosis Date ??? Chronic back pain greater than 3 months duration ??? Migraine ??? Thrombocytopenia - chronic 12/16/2012 ??? Thrombocytopenia - chronic 12/16/2012 SURGICAL HISTORY Past Surgical History: Procedure Laterality Date ??? [...] RIGHT/ROTATING PLATFORM CURVED Procedure Date: 01/14/2010 FAMILY HISTORY Family History Problem Relation Age of Onset ??? Heart Disease Mother ??? Heart Disease Father ??? Cancer Brother 58 panceratic Opioid Risk Tool Female Male 1. Family history of Substance Abuse Alcohol [] 1 [] 3 Illegal Drugs [] 2 [] 3 [...] 2 Depression [] 1 [] 1 TOTAL: 0 Comments about ORT in relation to this patient: Opioid Risk Category: low risk 0-3 PHYSICAL EXAMINATION Most Recent Vitals: 01/11/18 1356 BP: 126/75 Pulse: 61 SpO2: 100% PainSc: 8 Body mass index is 26.36 kg/(m^2). BP 126/75 Pulse 61 Wt 85.7 kg (189 lb) SpO2 100% BMI 26.36 kg/m2 No flowsheet data found. Appearance/ Behavior Well groomed, good eye contact, relaxed, cooperative, normal speech, no acute distress, no involuntary movements Eyes Sclera anicteric, conjunctiva clear. ENT Hearing grossly intact Lungs CTA bilaterally Cardiovascular Reg RR without murmur, Skin No rash, asymmetric hair loss, bruises, scars, swelling Musckuloskeletal Inspection/Palpation/ Range of Motion/Facet Loading maneuvers Stands with a slightly flexed posture, range of motion of the lumbar spine is limited. He walks with a stiff gait and can walk on heels and toes. Strength, sensation, and reflexes are all normal. Neuro Motor Strength Segment Muscle Action Bilateral Results C5 Detoid Shoulder abduction 5/5 C5 Biceps Elbow flexion 5/5 C6 Extensor carpi radialis Wrist extension 5/5 C7 Triceps Elbow extension 5/5 C8, T1 Hand intrinsics Grasp 5/5 L2-5, S 1 Gluteus medius Hip Adduction 5/5 L4-5, S1 Gluteus medius Hip Abduction 5/5 L2 Iliopsoas Hip flexion 5/5 L3 Quadriceps Knee extension 5/5 L4 Tibialis anterior Ankle Dorsiflexion 5/5 L5 Extensor hallucis Great toe extension 5/5 S1 Gastrocnemius Ankle Plantar flexion 5/5 Reflexes: Segment Tendon Bilateral C5 Biceps 2+ C6 Brachioradialis 2+ C7 Triceps 2+ [place] Neg L3-4 Patella 2+ S1 Ankle 2+ Lower Babinski Down going Clonus Neg Sensory Exam: No sensory deficits noted in cervical, thoracic, lumbar dermatomes Vascular: warm to touch + 2 pedal pulses ASSESSMENT Chronic back pain and new onset of right arm pain PLAN/RECOMMENDATIONS He has an upcoming appointment to talk to Dr. Hanson about pain management We discussed a couple things today. The first of all discussed cannabis as follows: We discussed the use of medical cannabis for pain management. I explained that cannabis is not approved by the Federal Food and Drug Administration for therapeutic purposes and that, although [place] and [place] have approved the limited use of cannabis for therapeutic purposes, its use is not approved under federal law. Discussed loss of employment may occur at employer???s discretion for usingcannabis. We discussed that there is controversy in the medical scientific literature available regarding thehealth effects of cannabis for therapeutic purposes and that more research is currently being conducted. Cannabis is an herb that contains over 400 chemicals many of which are biologically active. Some ofthese are ???cannabinoids?? which may be helpful for pain, anxiety, loss of appetite, nausea or other symptoms in some persons. Cannabinoids and other chemicals also may be associated with toxic effects (see below) Cannabis is a naturally occurring substance and therefore the chemical content is not precisely controlled and the effects of marijuana can vary considerably between plants. Discussed I am not ???prescribing cannabis?? for you. I am certifying that you have a medical condition that meets the Staterequirements for use of medical cannabis for symptom management. No Federal, State or other regulatory agency oversees the production or distribution of cannabis toassure dosing or quality of cannabis or freedom from contaminants such pesticides, fungi or other contaminants. We discussed the following potential health effects of therapeutic use of cannabis: Potential Immediate Risks or Side Effects whether smoked, orally consumed, or vaporized: 1. Altered sensations, perceptions, thinking, memory, and/or judgment that can impair your ability to safely and responsibly drive, work, or operate machinery for hours to days after last use depending on the type, amount and frequency of marijuana used 2. Risk for falls, motor vehicle accidents, or other accidents or injury due to above impairments 3. Anxiety or panic has been reported in some persons 4. Dryness of mouth and/or other mucosal membranes. 5. Increased appetite 6. Rapid heart rate and increased blood pressure. These may increase risk of heart attack, especially in persons with pre-existing heart disease or condition. 7. Possibly increased risk of stroke (brain injury) due to spasm of blood vessels in the brain. 8. Smoked cannabis may worsen symptoms due to asthma, COPD or other pulmonary conditions. Potential Risks or Side Effects from Regular Cannabis Use 1. Physical dependency on the cannabis which means that a person may experience a number of withdrawal symptoms if the person stops using it regularly including irritability, anxiety, disordered sleep, loss of appetite, cannabis craving and others 2. Addiction, indicated by an inability to stop using cannabis despite the fact it is causing ongoing negative effects; evidence suggest occurs in approximately 9% of persons who use cannabis 3. Academic, social, or work related problems due to delays or challenges in intellectual, psychological or social development, including significant memory impairment 4. Schizophrenia and some other psychiatric disorders appear to be more common and earlier in onsetin persons who use cannabis regularly in their teenage years. 5. Smoked cannabis may cause bronchitis, increased asthma symptoms and possible increased risk of lung cancer. 6. Cannabis use by women is associated with abnormal development of the nervous system in unborn babies and in growth retardation and low weights. I told him I would be happy to see him in the future and could help him with medical cannabis if hewas interested.I gave him some printed materials to review. I also spoke with him about low-dose naltrexone and he would like to discuss this with Dr. Hanson as well. Finally we discussed some other techniques including the 4-7-8 breathing technique for sleep induction and relaxation and anxiety. I also gave him a copy of the [employer] article by Irene Mcmahon entitled where pain lives Malik Machado had the opportunity to ask questions and indicated that all questions were answered to his satisfaction. Zenaida Orta MS OBSERVATION ASSISTANT-NIKOLAS, CIVIL ATTORNEY Nurse Practitioner [facility] documented in this encounter Plan of Treatment Upcoming Encounters Date Type Department Care Team (Late st Contact Info) Description 08/18/2024 11:00 AM EDT Hospital Encounter [place] [address] Arrived 02/22/2025 1:30 PM EDT Appointment Hematology [place] [address] 02/22/2025 2:30 PM EDT Office Visit Hematology [place] [address] Ellis Childers MD [facility] [address] HEMAT[place] [address] Felicita Landa APRN [facility] [address] HEMATOLOGY [place] [address] documented as of this encounter Visit Diagnoses Diagnosis Chronic back pain, causing disability Backache, unspecified documented in this encounter Care Teams Turning And Beading Machine Operator Relationship Specialty Start Date End Date Radha Mckeon MD [address] [place] [id number] PCP - General 09/23/10 documented as of this encounter
--- OUTSIDE RECORDS SUMMARY | 2024-07-24 17:30 | XMS_ITS | Encounter Summary ---
Author Organization Formerly [facility], [facility] [place] [address] Care Team Providers Care District Loss Prevention Manager Name Role Phone Radha Mckeon MD Primary Care Provider Reason for Visit * Reason Comments Atrial Fibrillation Encounter Details Date Type Department Care Team (Late st Contact Info) Description 09/10/2016 4:00 PM EST Office Visit Cardiology at [address] [address] Diogo Robb PA [facility] [place] [address] PAF (paroxysmal atrial fibrillation); Paroxysmal atrial fibrillation Social History Tobacco Use [...] Sign Reading Time Taken Comments Blood Pressure 118/60 09/10/2016 3:50 PM EST Pulse 54 09/10/2016 3:50 PM EST Temperature - - Respiratory Rate - - Oxygen Saturation 98% 09/10/2016 3:50 PM EST on room air Inhaled Oxygen Concentration - - Weight 84.4 kg (186 lb) 09/10/2016 3:50 PM EST Height 182.9 cm (6') 09/10/2016 3:50 PM EST Body Mass Index 25.23 09/10/2016 3:50 PM EST documented in this encounter Progress Notes * Diogo Robb PA - 09/10/2016 4:00 PM EST Subjective: Patient ID: Malik Machado is a 66 y.o. male. HPI 66yo man with hx PAF, insufficiently controlled with antiarrythmics, s/p PVI(12/2012) complicated bypericarditis, with increased frequency of intermittent palpitations over several months and now with atrial fibrillation requiring DC cardioversion. ?? He reports periodic sensation of irregular or faster heart rate that has not been consistently correlated with an arrythmia. Without recurrence of afib, his coumadin was discontinued in April 2013. Hereports increased frequency of sensation of palpitations and tachycardic episodes. They can occur daily however he can also go weeks without recurrence. At times they have been quite severe to the degree that if he is driving he has had to wool puller and wait for the episode to subside. ?? He continues on toprol 150mg daily in an effort to suppress premature beats. Beta blockade was initially used with caution as he had a trend to bradycardia and a RBBB with LAHB. EKG and ambulatory monitoring have not demonstrated worsening bradycardia or changes in intervals. In April,, we tried reducing his metoprolol from 150mg daily to 100mg daily and added long acting verapamil 120mg once daily. This was increased to 180mg daily, however he continued to have palpitations and then had an episode of sustained afib with RVR requiring urgent cardioversion??at [facility] on 08/26/2016. He was subsequently started on apxiban, had his metoprolol Increased back to 150mg and was discharged to home. He has not had any recurrence of sustained dysrhythmia since that event. He continues to have sensation of periodic brief bouts of tachycardia. Patient Active Problem List Diagnosis Code ??? Chronic back pain greater than 3 months duration M54.9, G89.29 ??? Knee pain M25.569 ??? Lumbar radiculopathy M54.16 ??? A-fib I48.91 ??? Hypertension I10 ??? 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 S/P knee replacement Z96.659 ??? Acute pleuropericarditis s/p atrial fibrillation ablation I30.9 ??? Odynophagia s/p Atrial fibrillation and ELOY R13.10 ??? Thrombocytopenia - chronic D69.6 Review of Systems Constitutional: Negative for chills, diaphoresis, fatigue and fever. Respiratory: Negative for cough, chest tightness and shortness of breath. Cardiovascular: Positive for palpitations. Negative for chest pain and leg swelling. Gastrointestinal: Negative for diarrhea, nausea and vomiting. Neurological: Negative for syncope and light-headedness. Social History Substance Use Topics ??? Smoking status: Former Smoker Packs/day: 2.00 Years: 16.00 Types: Cigarettes Quit date: 08/13/1983 ??? Smokeless tobacco: Never Used ??? Alcohol use No Current Outpatient Prescriptions Medication Sig Note Dispense Refill ??? apixaban (ELIQUIS) 5 mg Tablet Take 5 mg by mouth 2 times daily. ??? meTOPROLOL succinate (TOPROL-XL) 100 mg Tablet Sustained Release 24 hr Take 1.5 tablets by mouth daily. 135 tablet PRN ??? omeprazole (PRILOSEC) 40 mg Capsule, Delayed Release(E.C.) Take 40 mg by mouth daily. 04/02/2016:Received from: External Pharmacy Received Sig: ??? ranitidine (ZANTAC) 150 mg Tablet Take 150 mg by mouth nightly. 04/02/2016: Received from: External Pharmacy Received Sig: ??? SUMAtriptan (IMITREX) 20 mg/actuation [place], Non-Aerosol 1 spray by Nasal route as needed. For migraines 04/02/2016: Received from: External Pharmacy Received Sig: ??? valACYclovir (VALTREX) 500 mg Tablet Take 500 mg by mouth daily. 04/02/2016: Received from: External Pharmacy Received Sig: ??? verapamil (CALAN-SR) 120 mg Tablet Sustained Release Take 1 tablet by mouth nightly. 3 ??? oxyCODONE (ROXICODONE) 15 mg Tablet Take 15 mg by mouth every 4 hours as needed for Pain. ??? MULTIVITAMIN W-MINERALS/LUTEIN (CENTRUM SILVER ORAL) Take 1 tablet by mouth. ??? [place]-3 Fatty Acids-Vitamin E (FISH OIL) 1,000 mg Cap Take 1,000 mg by mouth 2 times daily. ??? acetaminophen (TYLENOL) 500 mg tablet Take 1,000 mg by mouth as needed. Indications: Headache Disorder, Pain ??? baclofen (LIORESAL) 10 mg tablet Take 10 mg by mouth daily. ??? simvastatin (ZOCOR) 10 mg tablet Take 10 mg by mouth nightly. ??? SUMAtriptan (IMITREX) 100 mg tablet Take 100 mg by mouth as needed. ??? zolpidem (AMBIEN) 5 mg tablet Take 5 mg by mouth nightly as needed. 1 to 2 tabs hs prn ??? glucosamine-chondroitin 500-400 mg tablet Objective: Physical Exam Constitutional: He is oriented to person, place, and time. No distress. Neck: No JVD present. Cardiovascular: Normal rate and regular rhythm. Pulmonary/Chest: Effort normal. Musculoskeletal: Normal range of motion. He exhibits no edema. Neurological: He is alert and oriented to person, place, and time. Skin: Skin is warm and dry. He is not diaphoretic. Nursing note and vitals reviewed. 12 lead EK09/10/2016 Sinus bradycardia @ 57; NY 162; QRS 138; QTc 436ms; RBBB, LAHB Zio: 09/14/2014 14 day, mean HR 69 bpm, range 47-176 bpm. Rare VPBs <1%; Rare APBs <1% 5 SVT runs occured with the longest being 11 beats at 176 BPM. This does have the appearance of a short RP tachycardia. Triggered events X 7 correlated with sinus rhythm in 3 events and nonsustained SVT 3-11 beats in 4/7 events. Diary entries X 7 all correlated with sinus rhythm. Symptomatic nonsustained SVT with 4/5 events associated with triggered events. All diary events were associated with sinus rhythm. ?? Echocardiogram: 04/30/2016 1. There is normal global left ventricular systolic function. The quantitative left ventricular ejection fraction by biplane Herrera's method is 64%. There are no left ventricular segmental wall motion abnormalities. 2. Right ventricular chamber size, wall thickness, and systolic function are within normal limits. 3. There is no hemodynamically significant valve disease. 4. Mildly dilated RA; Normal LA ?? Afib ablation: 12/12/2012 1) Successful acute electrical isolation of all the pulmonary veins was achieved (right and left pulmonary antral isolation, without carinal ablation). Transient acute reconnections could not be elicited chemically at the conclusion of the procedure following the acute electrical isolations. Very limited radiofrequency current was delivered along the posterior ablation trajectories, located adjace nt to the esophagus. 2) Preserved AV node conduction, right bundle branch block (eliminated during His bundle pacing). 3) No evidence of an accessory pathway. ? Assessment and Plan: 66yo man with hx PAF, s/p afib ablation, well controlled on metoprolol 150mg daily however now withincreasingly frequent episodes of sensation of tachycardia. EKG, holter and Zio patch monitoring demonstrated sinus with premature beats and brief SVT @ 167bpm lasting up to about a minute duration. He did not demonstrateany recurrent afib that was captured until 08/26, when he Had afib with RVR causing him to seek evaluation. He then underwent urgent DCCV at [facility] and was started on apixiban. ?? We discussed possible etiologies of his symptoms and provocative issues(he reports he is under considerable personal stress - his is ill with early onset dementia, he is raising grandchildren and has enrolled in a college program for environmental science). He has persistently reported fatigueof unclear etiology. He does not feel well(fatigue) on current dose of metoprolol and his metoprolol and diltiazem are insufficient to control his symptoms. We discussed various treatment options including titrating medications, return to AAD(previously was on dofetilide) or the possibility of repeat ablation. He would favor repeat EPS/ablation if this could offer the opportunity to reduce or eliminate medication. As he now has had recurrent afib, it may be that he has reconnection or a new site that initiates dysrhythmia. Will plan for EPS, +/- ablation(afib) with Dr. Byrd. Written consent obtained and scanned to chart. Will need to hold apixiban, metoprolo, three days prior to case Provider: ANDREE Shelley Provider#: [id number] Consult attending physician: Kitty Amaya MD documented in this encounter H&P Notes * Diogo Robb PA - 09/10/2016 4:00 PM EST See progress note. documented in this encounter Plan of Treatment Upcoming Encounters Date Type Department Care Team (Late st Contact Info) Description 08/18/2024 11:00 AM EDT Hospital Encounter Non-[place]vasive [place] [address] Arrived 02/22/2025 1:30 PM EDT Appointment Hematology [place] [address] 02/22/2025 2:30 PM EDT Office Visit Hematology [place] [address] Ellis Childers MD [facility] [address] [place] [address] Felicita Landa APRN [facility] [address] [place] [address] documented as of this encounter Procedures Procedure Name Priority Date/Time Associated Diagnosis Comments EKG 12-LEAD Routine 09/10/2016 3:59 PM EST PAF (paroxysmal atrial fibrillation) documented in this encounter Results * EKG 12 Lead (09/10/2016 3:59 PM EST) Ventricular rate 57 BPM MUSE SYSTEM Atrial Rate 57 BPM MUSE SYSTEM P-R Interval 162 ms MUSE SYSTEM QRS Duration 138 ms MUSE SYSTEM Q-T Interval 448 ms MUSE SYSTEM QTC Calculated (Bezet) 436 ms MUSE SYSTEM Calculated P [place] 54 degrees MUSE SYSTEM Calculated R [place] -49 degrees MUSE SYSTEM INTERPRETATION Sinus bradycardia Right bundle branch block Left anterior fascicular block Bifascicular block Abnormal ECG When compared with ECG of 02-APR-2016 15:29, No significant change was found Confirmed by MD AKIRA, FREEDOM ([id number]) on 09/10/2016 4:50:03 PM MUSE SYSTEM 09/10/2016 3:59 PM EST 09/10/2016 4:50 PM EST Henri Amaya MD ECG ORDERABLES MUSE SYSTEM documented in this encounter Visit Diagnoses Diagnosis PAF (paroxysmal atrial fibrillation) Atrial fibrillation Paroxysmal atrial fibrillation Atrial fibrillation documented in this encounter Care Teams District Loss Prevention Manager Relationship Specialty Start Date End Date Radha Mckeon MD [address] [place] [address] PCP - General 09/23/10 documented as of this encounter
--- OUTSIDE RECORDS SUMMARY | 2024-07-24 17:30 | XMS_ITS | Encounter Summary ---
Author Organization [facility] Address [facility] [place] [address] Care Team Providers Care Conveyor Operator Name Role Phone Radha Mckeon MD Primary Care Provider [phone] Reason for Visit * Reason Onset Date Comments Medication Refill 12/17/2017 Encounter Details Date Type Department Care Team (Late st Contact Info) Description 12/17/2017 Refill Cardiology at [address] [address] Salomón Gan MD [facility] [place] [address] Medication Refill Social History Tobacco Use Types [...] Telephone Encounter - Malia Tsai RN - 12/17/2017 8:45 AM EST Received Faxed request from [facility] in [facility] on behalf of patient requesting refillof metoprolol succinate ER 100 mg tablets . Patient would like a prescription for 90 supply with 0 refills. ?? Reviewed the office note from patient's appointment on 12/02/[address] Gan ?? Rx prepared as requested and forwarded to provider for their approval. documented in this encounter Plan of Treatment Upcoming Encounters Date Type Department Care Team (Late st Contact Info) Description 08/18/2024 11:00 AM EDT Hospital Encounter Non-Invasive [place] [address] Arrived 02/22/2025 1:30 PM EDT Appointment Hematology [place] [address] 02/22/2025 2:30 PM EDT Office Visit Hematology [place] [address] Ellis Childers MD [facility] [address] [place] [address] Felicita Landa APRN [facility] [address] [place] [address] documented as of this encounter Visit Diagnoses Diagnosis Paroxysmal atrial fibrillation Atrial fibrillation documented in this encounter Care Teams Conveyor Operator Relationship Specialty Start Date End Date Radha Mckeon MD [address] [place] [address] PCP - General 09/23/10 documented as of this encounter
--- OUTSIDE RECORDS SUMMARY | 2024-07-24 17:30 | XMS_ITS | Encounter Summary ---
Author Organization [facility] [place] [address] Care Team Providers Care Automobile Upholsterer Apprentice Name Role Phone Radha Mckeon MD Primary Care Provider [phone] Encounter Details Date Type Department Care Team (Late st Contact Info) Description 11/08/2017 [place]phone [place] [phone] Samantha Ruiz Social History Tobacco Use Types [...] * Telephone Encounter - Samantha Ruiz - 11/08/2017 3:34 PM EST Please completed the following grid for all new vertigo pts. Make the unshaded boxes yes for postive responses to the questions on the right. Make an appointment only for those services that have a postive response (yes) in that column. Neurotology Neurology Vestibular Rehab Audiology VNG with AE Do you have hearing loss that is worse in one ear? no no Does your ear feel full or ring ONLY when or around the time you have a dizzy spell? no no Is your dizziness worse when you lie down or roll over in bed? (BPPV) Schedule VNG first then PT noNo Have you been previously seen or have an appointment with Neurology for your dizziness? no no Have you been previously seen an ENT doctor for your dizziness? 1. schedule VNG if have not had a VNG for 1 year or more 2. schedule audiogram if >6 mo since last AE no no no Do you have a history of migraine headaches? yes yes yes Do you have blackout spells or have your passed out at any time from feeling dizzy? no-almost no no Are you over 70 yrs of age or have balance problems on a regular basis? Appointments to be made (any marked unshaded box in the column above): Checklist for appts Completed If you have been seen in Neurology or ENT please provide all notes prior to your appointment. Please have them faxed to [phone]. Please provide any imaging (x-rays, CT Scans, MRIs) prior to your appointment. This would include the images along with the assessment of the scans. none that he knows of We will be sending some information for your appointment. There is a questionnaire that needs to befilled out and mailed in prior to your appointment or brought in the day of your appointment. Please make sure to complete this questionnaire as it provides valuable information for our vertigo team. Should you have any questions regarding your appointment, please contact us at [phone]. If they are yes for BPPV they should see PT (Here at [facility] no outside PT ) first and no VNG Date Mailed Vertigo Information: documented in this encounter Plan of Treatment Upcoming Encounters Date Type Department Care Team (Late st Contact Info) Description 08/18/2024 11:00 AM EDT Hospital Encounter Non-[place]vasive [place] [address] Arrived 02/22/2025 1:30 PM EDT Appointment [place]ology [place] [address] 02/22/2025 2:30 PM EDT Office Visit Hematology [place] [address] Ellis Childers MD [facility] [place] [address] Felicita Landa APRN [facility] [place] [address] documented as of this encounter Visit Diagnoses Not on filedocumented in this encounter Care Teams Automobile Upholsterer Apprentice Relationship Specialty Start Date End Date Radha Mckeon MD [address] [place] [address] PCP - General 09/23/10 documented as of this encounter
--- OUTSIDE RECORDS SUMMARY | 2024-07-24 17:30 | XMS_ITS | Encounter Summary ---
Author Organization [facility] [place] [address] Care Team Providers Care Medical Staff Credentialing Coordinator Name Role Phone Radha Mckeon MD Primary Care Provider [phone] Reason for Visit * Auth/Cert Specialty Diagnoses / Procedures Referred By Becki guillory Referred To Contact Diagnoses AF (atrial fibrillation) PAF Procedures ELECTROPHYSIOLOGY PROCEDURE TRANSESOPHAGEAL ECHO DURING CATH/EP PROCEDURE Referral ID Status Reason Start Date Expiration Date Visits Re quested Visits Authorized [id number] 1 1 Encounter Details Date Type Department Care Team (Late st Contact Info) Description 11/23/2016 7:30 AM EST - 11/23/2016 3:30 PM EST Surgery [place] [address] Sanford Byrd MD [facility] [place] [address] ELECTROPHYSIOLOGY PROCEDURE Social History Tobacco Use Types [...] Sign Reading Time Taken Comments Blood Pressure 123/77 11/23/2016 3:08 PM EST Pulse 95 11/23/2016 3:08 PM EST Temperature 36.6 ??C (97.9 ??F) 11/23/2016 3:08 PM ES T Respiratory Rate 16 11/23/2016 3:08 PM EST Oxygen Saturation 95% 11/23/2016 3:08 PM EST Inhaled Oxygen Concentration - - Weight 81.6 kg (180 lb) 11/23/2016 6:57 AM EST Height - - Body Mass Index 24.41 11/23/2016 6:57 AM EST documented in this encounter Discharge Summaries * Sanjuana Argueta MD - 11/25/2016 9:26 AM EST Discharge Summary Patient Name: Malik Machado Patient Age: 66 y.o. Language: Luxembourger Race: White Ethnicity: Not nor Admit date: 11/23/2016 Discharge date and time: 11/25/2016 1130 Attending Physician: Sanford Byrd MD Discharge Physician: Sanjuana Argueta MD Follow-up Recommendations for Providers: S/p Afib ablation(posterior wall isolation) Continuing verapamil 180mg and metoprolol 150mg and apixiban Will add Prilosec 40mg once daily for 30 days post ablation EP clinic in 3 months Inpatient Provider Contact Information: Cardiac Electrophysiology [phone] Patient Active Problem List Diagnosis ??? A-fib Overview Note: --Recurrent AF --S/P cardioversions x 3 (09/2005, 01/2006, 07/2007). --AF that has resolved spontaneously (12/2006, etc). 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 --Flecainide stopped after 4 doses due to MI/QRS prolongation, 12/2007. --Started on dofetilide 500mcg BID [...] of periodic palpitations 2015. -- Admitted to [facility] 08/27/16, with A. fib at a rate of 112 bpm on metoprolol 100 mg daily/verapamil 180 mg daily; DCCV; metoprolol increased to 150 mg daily; started Eliquis. --Echo 11/2016: EF 58%. --Repeat afib ablation 11/23/2016: Veins still isolated; posterior wall isolation performed, stage IV. ??? Hypertension Overview Note: ??? Adverse drug effects Overview Note: --Amitriptyline (palpitations), Lipitor (liver enzyme abnormalities), flecainide (MI/QRS prolongation noted 12/2007). ??? History of surgery [...] USED: All implants were from the [email or web address] total knee system. 1. A size 4 [...] Rx, 2010. --Currently on oxycodone. --Lumbar radiculopathy. Operations/Major Procedures: [...] 10 mg Refills: 0 SUMAtriptan 20 mg/actuation [place] Commonly known as: IMITREX 1 spray by [...] of any new medications initiated at the [facility]. The patient should be aware and informed [...] Provider Department Dept Phone 12/24/2016 12:30 PM [facility] DX ROOM 6 [facility] Xray [phone] Please go to Japanese Tutor Area 3T ([place] Location). 12/24/2016 1:30 PM Michael Mi MD Orthopaedics [phone] Discharge References/Attachments None documented in this encounter [...] of any new medications initiated at the [facility]. The patient should be aware and [...] nightly. 03/18/2016 12/13/2018 SUMAtriptan (IMITREX) 20 mg/actuation [place], Non-Aerosol 1 spray by Nasal route as [...] 12 lead EK11/24/2016 Sinus rhythm @ 62; MI 162; QRS 136; QTc 424ms Assessment: Malik [...] --Flecainide stopped after 4 doses due to MI/QRS prolongation, 12/2007. --Started on dofetilide 500mcg BID [...] of periodic palpitations 2015. -- Admitted to [facility] 08/27/16, with A. fib at a rate of 112 bpm on metoprolol 100 mg daily/verapamil 180 mg daily; DCCV; metoprolol increased to 150 mg daily; started Eliquis. --Repeat afib ablation 11/23/2016: Veins still isolated; posterior wall isolation performed, stage IV. ??? Hypertension Overview Note: ??? Adverse drug effects Overview Note: --Amitriptyline (palpitations), Lipitor (liver enzyme abnormalities), flecainide (MI/QRS prolongation noted 12/2007). ??? History of surgery [...] No S/S of PU, or breakdown. Pain: 510 baseline chronic back UPDATE: 1700 patient complains of nausea, notified, zofran ordered. [address] Byrd may get patient up OOB now. 1730 patient ambulated in [facility], 1830 Patient nauseous again, MD notified Patient belongs with Patient family. Oriented [...] end of EP 1300 repost from Marla Jose RN 1326 Pt turned to RT side [...] and voiding without difficulty. He is tolerating [facility] diet. Will continue to monitor. PLAN [...] -- Goal: Fall Prevention-Safe Patient Handling 11/24/1641411/24/16 16211/24/16 2345 Daily Care Interventions Self-Care Promotion independence [...] Outcome: Ongoing (Interventions Implemented as Appropriate) 11/24/16 8357 Coping/Psychosocial Plan Of Care Reviewed With patient [...] dose of reglan. He has since tolerateda [facility] diet with no c/o nausea. Hummel catheter [...] Mapping (CARTO + CARTO-Sound), Direct Current Cardioversion Bank Consultant: Sanford Byrd MD Indication: Persistent atrial fibrillation Pre-procedure: Anticoagulation : Apixaban discontinued 4 days ago Antiarrhythmic : None Weight : 81.6 Kg [id number] : 1 Method: The procedural attending personally [...] of 850 milliseconds (ms) were as follows: MI: 150 ms (P wave duration 120 ms) AH: 60 ms HV: 50 ms QRS: 140 ms QT: 410 ms 2) Atrial overdrive pacing (10 mA @ 2 ms) was accomplished from the proximal- most bipole in the coronary sinus (CS), and the atrioventricular (AV) Wenckebach block CL was observed at 340 ms. There was no pre-excitation or conduction aberrancy identified. The [id number] > QRS-QRS just prior to the observed [...] rate of 2000 units/hour. The short 8 Afghan sheaths in the right femoral vein were [...] in monitoring the patient's status. A CARTO activ8 Intelligence ThermoCool SF 8 Fr ablation catheter with [...] AM EDT Hospital Encounter [place] [address] Arrived 02/22/2025 1:30 PM EDT Appointment Hematology [place] [address] 02/22/2025 2:30 PM EDT Office Visit Hematology [place] [phone] Ellis Childers MD [facility] [address] [place] [address] Felicita Landa APRN [facility] [address] [place] [address] documented as of this encounter Procedures Procedure Name Priority Date/Time Associated Diagnosis Comments BLOWER INSULATOR SCAN 11/25/2016 12:00 AM EST BLOWER INSULATOR SCAN 11/25/2016 12:00 AM EST BASIC METABOLIC [...] in this encounter Results * SCAN DOC: BLOWER INSULATOR (11/25/2016 12:00 AM EST) Anatomical Region Laterality Modality Other Scanning Provider MEDIA MGR SCAN EXT O RDR/RSLT * SCAN DOC: BLOWER INSULATOR (11/25/2016 12:00 AM EST) Anatomical Region Laterality Modality Other Scanning Provider MEDIA MGR SCAN EXT O RDR/RSLT * Basic Metabolic Panel (non-fasting) (11/24/2016 2:30 PM EST) Glucose 114 65 - 199 mg/dL [facility] Comment:Diabetes: >=200 mg/d L plus symptoms Blood Urea Nitrogen 14 10 - 20 mg/dL [facility] Creatinine 0.92 0.80 - 1.50 mg/dL [facility] Comment: Please note that the pediatric reference intervals supplied above were not validated at [facility]. Results from pediatric patients should be interpreted in conjunction to the patient's age, height and muscle mass. Sodium 143 135 - 145 mmol/L [facility] Potassium 4.3 3.5 - 5.0 mmol/L [facility] Comment: Please note: ??Patients with WBC >100,000 may have falsely elevated Potassium levels. ??For accurate Potassium quantification in these patients send serum separator tube (gold top) for subsequent determinations. ??Contact the Clinical Chemistry Laboratory if there are any questions. Chloride 107 98 - 107 mmol/L [facility] Carbon Dioxide 25 22 - 31 mmol/L [facility] Anion Gap 11 5 - 15 mmol/L [facility] Calcium 8.8 8.5 - 10.5 mg/dL [facility] Est Glomerular Filtration Rate >60 >=60 [facility] Comment: This estimated GFR (eGFR) value [...] the following links into your internet browser. [email or web address] Blood specimen (specimen) 11/24/2016 2:30 PM EST 11/24/2016 3:02 PM EST Narrative Resulting Agency Comment Spec In Lab Sanford Byrd MD CHEMISTRY ORDERABLES [facility] [place] [id number] * EKG 12 Lead (11/24/2016 2:19 PM EST) Ventricular rate 62 BPM MUSE SYSTEM Atrial Rate 62 BPM MUSE SYSTEM P-R Interval 162 ms MUSE SYSTEM QRS Duration 136 ms MUSE SYSTEM Q-T Interval 428 ms MUSE SYSTEM QTC Calculated (Bezet) 434 ms MUSE SYSTEM Calculated P [place] 72 degrees MUSE SYSTEM Calculated R [place] -49 degrees MUSE SYSTEM Calculated T [place] 3 degrees MUSE SYSTEM INTERPRETATION Normal sinus rhythm Right bundle branch block Left anterior fascicular block Bifascicular block Abnormal ECG When compared with ECG of 24-NOV-2016 07:18, (unconfirmed) No significant change was found Confirmed by MD Alex, Marzena ([id number]) on 11/24/2016 4:54:52 PM MUSE SYSTEM 11/24/2016 2:19 PM EST 11/24/2016 4:54 PM EST Sanford Byrd MD ECG ORDERABLES MUSE SYSTEM * ECHO LMTD W/O CONTRAST (11/24/2016 9:49 AM EST) EF 58 [facility]ART[facility] SYSTEM Anatomical Region Laterality Modality Other 11/24/2016 Narrative 11/24/2016 10:18 AM EST Procedure: ?Transthoracic Echocardiogram Patient: ?MILY NOLAN T ?(Age): 1950(66y) Med Rec#: ? [id number] ?Sex: ?M ? Site Loc: ? [facility] ?Ht / Wt: ??182(cm)/82(kg) Pt. Loc: ?Adult Floor ? BSA: ?2.03 Study Date: ?? 11/24/2016 ?Pt. Type: Inpatient Tape: ? Referring: Sanford Byrd Reading: Papo Smith ([id number]) Fruit And Vegetable Classer: Michael Whitaker Diagnosis: *ICD-10-PCS Persistent atrial fibrillation (I48.1) CPT Codes: *Echo LTD ([id number]) Rhythm: ? Sinus BP: ? 109/73 SUMMARY: [...] ? Mid-Inferior ?Normal ? Mid-Inferoseptal ?Normal ? [place]-Septal ? Normal ? [place]-Anterior ? Normal ? [place]-Lateral ?Normal ? [place]-Inferior ? Normal ? [place]-Tip ?Normal ? This report has been electronically signed by: Papo Smith MD ? 11/24/2016 10:18:28 Images reviewed and interpretation verified [facility] Procedure Note Papo Smith MD - 11/24/2016 Procedure: Transthoracic Echocardiogram Patient: MILY CLINTON(Age): 1950(66y) Med Rec#: [id number] Sex: M Site Loc: [facility] Ht / Wt: 182(cm)/82(kg) Pt. Loc: Adult Floor BSA: 2.03 Study Date: 11/24/2016 Pt. Type: Inpatient Tape: Referring: Sanford Byrd Reading: Papo Smith ([id number]) Fruit And Vegetable Classer: Michael Whitaker Diagnosis: *ICD-10-PCS Persistent atrial fibrillation (I48.1) CPT Codes: *Janna LTD ([id number]) Rhythm: Sinus BP: 109/73 SUMMARY: 1. Limited [...] Normal Mid-Posterolateral Normal Mid-Inferior Normal Mid-Inferoseptal Normal [place]-Septal Normal [place]-Anterior Normal [place]-Lateral Normal [place]-Inferior Normal [place]-Tip Normal This report has been electronically signed by: Papo Smith MD 11/24/2016 10:18:28 Images reviewed and interpretation verified [facility] Sanford Byrd MD ECHO ORDERABLES * EKG 12 Lead (11/24/2016 7:18 AM EST) Ventricular rate 58 BPM MUSE SYSTEM Atrial Rate 58 BPM MUSE SYSTEM P-R Interval 158 ms MUSE SYSTEM QRS Duration 132 ms MUSE SYSTEM Q-T Interval 452 ms MUSE SYSTEM QTC Calculated (Bezet) 443 ms MUSE SYSTEM Calculated P [place] 36 degrees MUSE SYSTEM Calculated R [place] -43 degrees MUSE SYSTEM Calculated T [place] -8 degrees MUSE SYSTEM INTERPRETATION Sinus bradycardia Left anterior fascicular block Right bundle branch block Bifascicular block Abnormal ECG When compared with ECG of 23-NOV-2016 06:53, no major changes seen Confirmed by fellow MD Dayron, Arden ([id number]) on 11/24/2016 10:00:38 AM Confirmed by Fay GUTIÉRREZ Jerome ([id number]) on 11/24/2016 4:42:29 PM MUSE SYSTEM [...] (Bezet) 481 ms MUSE SYSTEM Calculated P [place] 63 degrees MUSE SYSTEM Calculated R [place] -49 degrees MUSE SYSTEM Calculated T [place] 4 degrees MUSE SYSTEM INTERPRETATION Poor data quality Normal sinus rhythm Right bundle branch block Left anterior fascicular block Bifascicular block Abnormal ECG When compared with ECG of 10-SEP-2016 15:59, No significant change was found Confirmed by MD Ajay, Ann-Marie ([id number]) on 11/24/2016 1:42:13 PM MUSE SYSTEM 11/23/2016 6:53 AM EST 11/24/2016 1:42 PM EST Sanford Byrd MD ECG ORDERABLES Performing Organization Address City/[facility] Co de Phone Number MUSE SYSTEM * ABORH Recheck Status (11/23/2016 6:34 AM EST) ABORH Type Recheck Completed [facility] Blood specimen (specimen) Venous Draw / Unknown 11/23/2016 6:34 AM EST 11/23/2016 6:39 AM EST Narrative Resulting Agency Comment Spec In Lab Sanford Byrd MD BLOOD BANK LAB ORDER DELICIA Performing Organization Address [facility] Co de Phone Number [facility] [place] [address] * Antibody screen manual (11/23/2016 6:34 AM EST) AB Screen Interp Negative [facility] Blood specimen (specimen) Venous Draw / Unknown 11/23/2016 6:34 AM EST 11/23/2016 6:39 AM EST Narrative Resulting Agency Comment Spec In Lab Sanford Byrd MD BLOOD BANK LAB ORDER DELICIA Performing Organization Address [facility] Co de Phone Number [facility] [place] [address] * ABORh Type Manual (11/23/2016 6:34 AM EST) Expires at [id number] on: 11/26/2016 [facility] ABORH Type O Pos [facility] Blood specimen (specimen) Venous Draw / Unknown 11/23/2016 6:34 AM EST 11/23/2016 6:39 AM EST Narrative Resulting Agency Comment Spec In Lab Sanford Byrd MD BLOOD BANK LAB ORDER DELICIA [facility] [place] [address] * (ABNORMAL) Differential, Automated (11/23/2016 6:34 AM EST) Neutrophil % 69.6 % [facility] Neutrophil Absolute 3.61 1.70 - 6.10 x10(3)/mc L [facility] Lymph % 16.0 % [facility] Lymphocytes Abs 0.8(L) 0.9 - 3.2 x10(3)/ L [facility] Monocyte % 12.5 % [facility] Monocyte Abs 0.6 0.3 - 0.9 x10(3)/ L [facility] Eos % 1.3 % [facility] Eosinophils Abs 0.1 0.0 - 0.4 x10(3)/ L [facility] Basophil % 0.4 % [facility] Baso Absolute 0.0 0.0 - 0.1 x10(3)/mc L [facility] Immature Gran % 0.20 % [facility] Comment: Immature granulocytes(IG's)percentage and absolute count will include metamyelocytes, myelocytes, and promyelocytes. Blood smears from CBCs yielding IG's will be scanned manually for concordance. If this scan disagrees with the automated IG or if promyelocytes are noted, a manual differential will be performed. Immature Gran Absolute 0.01 0.00 - 0.04 x10(3)/mc L [facility] Blood specimen (specimen) 11/23/2016 6:34 AM EST 11/23/2016 6:42 AM EST Narrative Resulting Agency Comment Spec In Lab Sanford Byrd MD HEMATOLOGY ORDERABLE S [facility] [place] [address] * (ABNORMAL) Hemogram (11/23/2016 6:34 AM EST) White Blood Cell 5.2 4.0 - 9.5 x10(3)/mc L [facility] Red Blood Cell 4.44(L) 4.58 - 5.54 x10(6)/mc L [facility] Hemoglobin 14.7 13.7 - 16.5 gm/dL [facility] Hematocrit 42.0 40.5 - 48.5 % [facility] Mean Cell Volume 94.6(H) 82.9 - 93.1 [facility] Mean Cell Hemoglobin 33.1(H) 27.5 - 32.1 pg [facility] Mean Cell Hemoglobin Concentration 35.0 32.0 - 35.7 gm/dL [facility] Platelet 121(L) 145 - 357 x10(3)/mc L [facility] RDW Standard Deviation 41.3 36.0 - 45.0 [facility] RDW coefficient of variation 11.9 11.4 - 13.8 % [facility] Mean Platelet Volume 11.7 7.6 - 12.9 [facility] NRBC% auto 0.0 % [facility] NRBC Absolute 0.000 0.000 - 0.000 x10(3)/mc L [facility] Blood specimen (specimen) 11/23/2016 6:34 AM EST 11/23/2016 6:42 AM EST Narrative Resulting Agency Comment Spec In Lab Sanford Byrd MD HEMATOLOGY ORDERABLE S [facility] [place] [address] * (ABNORMAL) BMP w/fasting Glucose (11/23/2016 6:34 AM EST) [facility] Signature Glucose Fasting 105(H) 65 - 99 mg/dL [facility] Comment: ?Fasting* Glucose Interpretive [...] of Diabetes Mellitus, Position Statement from the [place] [employer]. ??Diabetes Care, Volume 33, Supplement 1, Nov 2009 Blood Urea Nitrogen 23(H) 10 - 20 mg/dL [facility] Creatinine 1.06 0.80 - 1.50 mg/dL [facility] Comment: Please note that the pediatric reference intervals supplied above were not validated at [facility]. Results from pediatric patients should be interpreted in conjunction to the patient's age, height and muscle mass. Sodium 143 135 - 145 mmol/L [facility] Potassium 4.5 3.5 - 5.0 mmol/L [facility] Comment: Please note: ??Patients with WBC >100,000 may have falsely elevated Potassium levels. ??For accurate Potassium quantification in these patients send serum separator tube (gold top) for subsequent determinations. ??Contact the Clinical Chemistry Laboratory if there are any questions. Chloride 105 98 - 107 mmol/L [facility] Carbon Dioxide 26 22 - 31 mmol/L [facility] Anion Gap 12 5 - 15 mmol/L [facility] Calcium 9.2 8.5 - 10.5 mg/dL [facility] Est Glomerular Filtration Rate >60 >=60 [facility] Comment: This estimated GFR (eGFR) value [...] the following links into your internet browser. [email or web address] Blood specimen (specimen) 11/23/2016 6:34 AM EST 11/23/2016 6:41 AM EST Narrative Resulting Agency Comment Spec In Lab Sanford Byrd MD CHEMISTRY ORDERABLES Performing Organization Address [facility] de Phone Number [facility] [place] [address] * Prothrombin Time (11/23/2016 6:34 AM EST) Prothrombin Time 13.2 12.0 - 15.0 sec [facility] Comment: An INR <2.0 [...] International Normalization Ratio 1.0 0.9 - 1.1 [facility] Blood specimen (specimen) 11/23/2016 6:34 AM EST 11/23/2016 6:41 AM EST Narrative Resulting Agency Comment Spec In Lab Sanford Byrd MD HEMATOLOGY ORDERABLE S Performing Organization Address [facility] Co wv Phone Number [facility] [place] [address] documented in this encounter Visit Diagnoses Diagnosis Persistent atrial fibrillation Atrial fibrillation AF (atrial fibrillation) Atrial fibrillation Persistent atrial fibrillation Atrial fibrillation documented in this encounter Admitting Diagnoses Diagnosis [...] Hernandez RN) 856 (Given - Provider: Sulema Palomo, TORREY)2102 (Given - Provider: Elke Hernandez RN) 922 (Given - Provider: Sulema Palomo RN) baclofen (LIORESAL) tablet 10 mg 10 mg, [...] Hernandez RN) 922 (Given - Provider: Sulema Palomo RN) levothyroxine (SYNTHROID) tablet 100 mcg 100 mcg, Oral, EVERY MORNING, First dose on Wed11/24/16 at 0600, Until Discontinued, Routine 05 (Given - Provider: Elke Hernandez RN) 0537 [...] Palomo RN) 0923 (Given - Provider: Sulema Palomo RN) pantoprazole (PROTONIX) tablet 40 mg 40 mg, Oral, DAILY, First dose on Wed11/24/16 at 0900, Until Discontinued, DO NOT CRUSH OR OPEN 0859 (Given - Provider: Sulema Palomo RN) 0923 (Given - Provider: Sulema Palomo RN) simvastatin (ZOCOR) tablet 10 mg 10 mg, Oral, EVERY EVENING, First dose on Wed11/23/16 at 1700, Until Discontinued 1700 (Not Given - Provider: Deborah Lang RN - Reason: Patient/family refused - Comment: patient nasueous, takes at 1999)2128 (Given - Provider: Elke Hernandez RN - Comment: patient request home schedule. nsausous at 1700 rescheduled) 165 (Given - Provider: Sulema Palomo RN) sucralfate (CARAFATE) 100 mg/mL oral suspension 1 g 1 g, Oral, EVERY 6 HOURS SCHEDULED, First dose on Wed11/24/16 at 1330, Until Discontinued, Routine 1419 (Given - Provider: Sulema Palomo RN)2102 (Given - Provider: Elke Hernandez RN) 030 [...] Procedure), Routine 0706 (Given - Provider: Christina Saini, TORREY) ondansetron (ZOFRAN) tablet 4 mg 4 mg, [...] Elke Hernandez RN)2230 (Given - Provider: Elke Hernandez RN) documented in this encounter Care Teams Medical Staff Credentialing Coordinator Relationship Specialty Start Date End Date Radha Mckeon MD [address] [place] [address] PCP - General 09/23/10 documented as of this encounter
--- OUTSIDE RECORDS SUMMARY | 2024-07-24 17:31 | XMS_ITS | Encounter Summary ---
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 simvastatin (ZOCOR) 10 mg tablet Take 10 mg by mouth nightly. fish oil-omega-3 fatty acids with vitamin E 1,000 mg Capsule Take 2,000 mg by mouth daily. 05/20/2022 acetaminophen (TYLENOL) 500 mg tabletIndications:headac he disorder,pain Take 1,000 mg by mouth as needed. Indications: Headache Disorder, Pain 11/17/2019 metoprolol succinate (TOPROL-XL) 50 mg 24 hr tablet Take 75 mg by mouth daily. 12/18/2014 OXYcodone-acetaminophen (PERCOCET) 5-325 mg per tablet Take 1 tablet by mouth every 4 hours as needed. 12/18/2014 SUMAtriptan (IMITREX) 100 mg tablet Take 100 mg by mouth as needed. 11/23/2016 zolpidem (AMBIEN) 5 mg tablet Take 5 mg by mouth nightly as needed. 1 to 2 tabs hs prn 02/28/2018 glucosamine-chondroitin 500-400 mg tablet 01/13/2011 02/28/2018 documented as of this encounter Plan of Treatment Upcoming Encounters Date Type Department Care Team (Late st Contact Info) Description 08/18/2024 11:00 AM EDT Hospital Encounter Non-[place]vasive [place] [address] Arrived 02/22/2025 1:30 PM EDT Appointment Hematology and Oncology at [place] [phone] 02/22/2025 2:30 PM EDT Office Visit Hematology [place] [address] Ellis Childers MD [facility] DR HEMATOLOGY [place] [address] Felicita Landa APRN [facility] HEMATOLOGY [place] [address] documented as of this encounter Procedures Procedure Name Priority Date/Time Associated Diagnosis Comments ZIOPATCH Routine 09/14/2014 2:17 PM EST Syncope documented in this encounter Results * ZIOPATCH (09/14/2014 2:17 PM EST) Anatomical Region Laterality Modality Other Narrative 10/09/2014 12:21 PM EST [facility] ZIO PATCH ??REPORT Ordering Provider: ??ANDREE Shelley ?? Interpreting Physician: Sumeet Peñaloza DO ?? Indication for Zio Patch: ??Syncope Quality of recordings submitted: [] Acceptable [x] Moderate artifact [] Considerable artifact Rhythm interpretation: 14 day 0 hourZio patch recording. ??Mean HR 69 bpm, range 47-176 bpm. Rare VPBs <1% Rare APBs <1% SVT ?? 5 SVT runs occured with the longest being 11 beats at 176 BPM. This does have the appearance of a short RP tachycardia. Triggered events X 7 correlated with sinus rhythm in 3 events and nonsustained SVT 3-11 beats in 4/7 events. Diary entries X 7 all correlated with sinus rhythm. Impression: ??Symptomatic nonsustained SVT with 4/5 events associated with triggered events. All diary events were associated with sinus rhythm. Sumeet Peñaloza DO [facility] Department [place], [place] ) Pager [phone]) Sumeet Peñaloza DO CARDIAC SERVICES ORD ERABLES documented in this encounter Visit Diagnoses Diagnosis Syncope Syncope and collapse documented in this encounter Care Teams Production Engineer Relationship Specialty Start Date End Date Radha Mckeon MD [address] [place] [address] PCP - General 09/23/10 documented as of this encounter
--- OUTSIDE RECORDS SUMMARY | 2024-07-24 17:31 | XMS_ITS | Encounter Summary ---
Author Organization [facility] [place] [address] Care Team Providers Care Amortization Clerk Name Role Phone Radha Mckeon MD Primary Care Provider [phone] Encounter Details Date Type Department Care Team (Late st Contact Info) Description 09/18/2013 10:58 AM EST - 09/18/2013 11:59 PM [facility] Hospital Encounter [place] [phone] Social History Tobacco Use Types Packs/Day Years [...] AM EDT Hospital Encounter Non-[place] [address] Arrived 02/22/2025 1:30 PM EDT Appointment Hematology [place] [address] 02/22/2025 2:30 PM EDT Office Visit Hematology [place] [phone] Ellis Childers MD [facility] DR [place] [address] Felicita Landa APRN [facility] [address] [place] [address] documented as of this encounter Procedures Procedure Name Priority Date/Time Associated Diagnosis Comments NM BONE SCAN 3 PHASE Routine 09/18/2013 2:39 PM EST documented in this encounter Results * NM 3 phase bone scan (09/18/2013 2:39 PM EST) Anatomical Region Laterality Modality Other 09/18/2013 2:39 PM EST Narrative 09/18/2013 3:57 PM EST Examination 3PHASE BONE SCAN Clinical History KNEE PAIN Comparison Radiographs of the right knee dated September 07, 2013. Technique Following the intravenous administration of 24.5 mCi of technetium-99m MDP, anterior and posterior projections of both knees were obtained at 2 second intervals for 1 minute. Immediate blood pool images were then obtained in anterior, posterior and lateral projections. Delayed images of the knees were obtained at 3 hours in the anterior, posterior and lateral projections. ?? Findings No abnormal activity is seen. No significant periprosthetic activity is seen around the right knee prosthetic components. ?? Impression No evidence of hardware loosening. Film and interpretation reviewed by the attending Procedure Note Henry Vance MD - 09/18/2013 Examination 3PHASE BONE SCAN Clinical History KNEE PAIN Comparison Radiographs of the right knee dated September 07, 2013. Technique Following the intravenous administration of 24.5 mCi of technetium-99mMDP, anterior and posterior projections of both knees were obtained at 2 second intervals for 1 minute. Immediate blood pool images were then obtained in anterior, posterior and lateral projections. Delayed images of the kneeswere obtained at 3 hours in the anterior, posterior and lateral projections. Findings No abnormal activity is seen. No significant periprosthetic activity isseen around the right knee prosthetic components. Impression No evidence of hardware loosening. Film and interpretation reviewed by the attending Umang Pulido MD IMG NM ORDERABLES documented in this encounter Visit Diagnoses Not on filedocumented in this encounter Care Teams Amortization Clerk Relationship Specialty Start Date End Date Radha Mckeon MD [address] [place] [address] PCP - General 09/23/10 documented as of this encounter
--- OUTSIDE RECORDS SUMMARY | 2024-07-24 17:31 | XMS_ITS | Encounter Summary ---
Author Organization [facility] [place] [address] Care Team Providers Care Litigation Associate Name Role Phone Radha Mckeon MD Primary Care Provider [phone] Encounter Details Date Type Department Care Team (Latest Contact Info) Description 02/02/2013 12:38 PM EDT - 02/02/2013 11:59 PM EDT Hospital [place] [address] Peewee Bella MD [facility] [place] [address] S/P knee replacement Discharge Disposition: Home Social History [...] tablet Take 10 mg by mouth nightly. aspirin 81 mg EC tablet Take 1 tablet by mouth daily for 90 days. 90 tablet 0 12/16/2012 03/16/2013 warfarin (COUMADIN) 1 mg tablet Take 2 mg daily for 3 days then return to 1 mg daily dose 6 tablet 0 12/16/2012 09/07/2013 fish oil-omega-3 fatty acids with vitamin E 1,000 mg Capsule Take 2,000 mg by mouth daily. 05/20/2022 acetaminophen (TYLENOL) 500 mg tabletIndications:heada heriberto disorder,pain Take 1,000 mg by mouth as needed. Indications: Headache Disorder, Pain 11/17/2019 methadone (DOLOPHINE) 10 mg tablet Take 10 mg by mouth 2 times daily. 09/07/2013 metoprolol succinate (TOPROL-XL) 50 mg 24 hr [...] AM EDT Hospital Encounter Non-Invasive [place] [phone] Arrived 02/22/2025 1:30 PM EDT Appointment Hematology [place] [phone] 02/22/2025 2:30 PM EDT Office Visit Hematology [place] [phone] Ellis Childers MD [facility] [place] [address] Felicita Landa APRN [facility] DR HEMATOLOGY [place] [address] documented as of this encounter Procedures Procedure Name Priority Date/Time Associated Diagnosis Comments SEDIMENTATION RATE STAT 02/02/2013 12 :47 PM EDT S/P knee replacement CRP, CARDIAC RISK (HS CRP) STAT 02/02/2013 12:47 PM EDT S/P knee replacement documented in this encounter Results * Sedimentation rate (02/02/2013 12:47 PM EDT) Sedimentation Rate Automated 12 0 - 15 mm/hr [employer] Blood specimen (specimen) 02/02/2013 12:47 PM EDT 02/02/2013 12:54 PM EDT Narrative Resulting Agency Comment Spec In Lab Peewee Bella MD HEMATOLOGY ORDERABLE S [employer] * High Sensitivity CRP (02/02/2013 12:47 PM EDT) C-Reactive Protein High Sensitivity 0.8 mg/L [employer] Comment: Interpretations: 1) For cardiac risk assessment, two values (fasting or nonfasting sample acceptable) taken at least 2 weeks apart, should be averaged to provide a more reliable estimate of marker level. ??This laboratory uses the recommendations from the AHA/CDC Scientific Statement for interpretations of future risks of cardiovascular events: ? <1.0 mg/L: low risk 1.0 - 3.0 mg/L: moderate risk >3.0 mg/L: high risk groups for future cardiovascular events 2) The general reference range of apparently healthy individuals using this test is <5.0 mg/L (derived from the test package insert) A few words of caution: For cardiac assessment, when a value >10 mg/L is encountered, there should be a search for an acute inflammatory condition or infection (in patients with acute inflammation, the concentration can increase to >500 mg/L). ??The >10 mg/L should be discarded if such a situation exists, since the risk for coronary heart disease cannot be provided, and a repeat specimen, taken at least two weeks after resolution of the acute inflammatory condition, may allow for appraisal of coronary risk information. Please note that significantly decreased CRP values may be obtained from samples taken from patients who have been treated with carboxypenicillins. References: 1. Forrest BOX et. al. ??AHA/CDC Scientific Statement: Markers of Inflammation and Cardiovascular Disease. ??Circulation 2003; 107:499-511 Cydney PM. ??Clinical applications of C-reactive protein for cardiovascular disease detection and prevention. ??Circulation 2003; 107:363-369 Blood specimen (specimen) 02/02/2013 12:47 PM EDT 02/02/2013 12:54 PM EDT Narrative Resulting Agency Comment Spec In Lab Peewee Bella MD CHEMISTRY ORDERABLES Performing Organization Address City/State/[facility] Co ca Phone Number [facility] documented in this encounter Visit Diagnoses Diagnosis S/P knee replacement Knee joint replacement by other means documented in this encounter Care Teams Litigation Associate Relationship Specialty Start Date End Date Radha Mckeon MD [address] [place] [address] PCP - General 09/23/10 documented as of this encounter
--- OUTSIDE RECORDS SUMMARY | 2024-07-24 17:31 | XMS_ITS | Encounter Summary ---
Author Organization [facility] [place] [address] Care Team Providers Care Decorating Instructor Name Role Phone Radha Mckeon MD Primary Care Provider [phone] Encounter Details Date Type Department Care Team (Late st Contact Info) Description 08/27/2016 Telephone Cardiology at [address] [phone] Diogo Argueta MD [facility] [address] Social History Tobacco Use Types Packs/Day Years [...] Miscellaneous Notes * Telephone Encounter - Diogo Argueta MD - 08/27/2016 10:05 AM EDT Spoke with Dr. Rod at [facility]. Patient admitted with AFib, rate 112 bpm, on metoprolol 100 mg daily + verapamil 180 mg daily. With additional metoprolol 50 mg daily, his rate is now 85. Patient is clear that Afib began at 1600 yesterday. Recommendation: 1. NOAC + DCCV today (they will do this at [facility]). 2. Increase metoprolol to 150 mg daily (his prior dose before adding verapamil). 3. Outpatient EP visit to discuss ? Repeat ablation or antiarrhythmic drug Rx. documented in this encounter Plan of Treatment Upcoming Encounters Date Type Department Care Team (Late st Contact Info) Description 08/18/2024 11:00 AM EDT Hospital Encounter Non-Invasive [place] [address] Arrived 02/22/2025 1:30 PM EDT Appointment Hematology [place] [address] 02/22/2025 2:30 PM EDT Office Visit Hematology and Oncology at [address] Ellis Childers MD [facility] DR HEMATOLOGY [place] [address] Felicita Landa APRN [facility] DR HEMATOLOGY [place] [address] documented as of this encounter Visit Diagnoses Not on filedocumented in this encounter Care Teams Decorating Instructor Relationship Specialty Start Date End Date Radha Mckeon MD [address] [place] [address] PCP - General 09/23/10 documented as of this encounter
--- OUTSIDE RECORDS SUMMARY | 2024-07-24 17:31 | XMS_ITS | Encounter Summary ---
[place] [address] Care Team Providers Care Head Of Geography Name Role Phone Radha Mckeon MD Primary Care Provider [phone] Reason for Visit * Reason Onset Date Comments Medication Refill 04/17/2016 Encounter Details Date Type Department Care Team (Late st Contact Info) Description 04/17/2016 Refill Cardiology at [address] [address] Diogo Robb PA [facility] [address] Medication Refill Social History Tobacco Use Types [...] EDT Hospital Encounter Non-Invasive [place] [address] Arrived 02/22/2025 1:30 PM EDT Appointment Hematology [place] [address] 02/22/2025 2:30 PM EDT Office Visit Hematology and Oncology at [place] [phone] Ellis Childers MD [facility] [place] [address] Felicita Landa APRN [facility] DR HEMATOLOGY [place] [address] documented as of this encounter Visit Diagnoses Not on filedocumented in this encounter Care Teams Head Of Geography Relationship Specialty Start Date End Date Radha Mckeon MD [address] [place] [address] PCP - General 09/23/10 documented as of this encounter
--- OUTSIDE RECORDS SUMMARY | 2024-07-24 17:31 | XMS_ITS | Encounter Summary ---
Author Organization [facility] [place] [address] Care Team Providers Care Photographic Equipment Inspector Name Role Phone Radha Mckeon MD Primary Care Provider [phone] Reason for Visit * Reason Onset Date Comments Medication Refill 04/11/2015 Encounter Details Date Type Department Care Team (Late st Contact Info) Description 04/11/2015 Refill Cardiology at [address] [address] Diogo Robb PA [facility] [place] [address] Medication Refill Social History Tobacco Use Types [...] AM EDT Hospital Encounter [place] [address] Arrived 02/22/2025 1:30 PM EDT Appointment Hematology and Oncology at [place] [address] 02/22/2025 2:30 PM EDT Office Visit Hematology and Oncology at [place] [address] Ellis Childers MD [facility] DR HEMATOLOGY [place] [address] Felicita Landa APRN [facility] [address] HEMATOLOGY [place] [address] documented as of this encounter Visit Diagnoses Not on filedocumented in this encounter Care Teams Photographic Equipment Inspector Relationship Specialty Start Date End Date Radha Mckeon MD [address] [place] [address] PCP - General 09/23/10 documented as of this encounter
--- OUTSIDE RECORDS SUMMARY | 2024-07-24 17:31 | XMS_ITS | Encounter Summary ---
[place] [address] Care Team Providers Care Bag Worker Name Role Phone Radha Mckeon MD Primary Care Provider [phone] Reason for Visit * Reason Onset Date Comments Other 09/22/2013 Follow up Encounter Details Date Type Department Care Team (Late st Contact Info) Description 09/22/2013 Telephone [place] [phone] Luiza Puente, RN Other (Follow up) Social History Tobacco Use Types Packs/Day Years [...] encounter Miscellaneous Notes * Telephone Encounter - Luiza Puente, RN - 09/22/2013 11:13 AM EST Follow up call made to patient. Dr Mi's letter read concerning results of patient's ultrasound. Dr Mi will contact patient under separate cover letter concerning the bone scan. documented in this encounter Plan of Treatment Upcoming Encounters Date Type Department Care Team (Late st Contact Info) Description 08/18/2024 11:00 AM EDT Hospital Encounter [place] [address] Arrived 02/22/2025 1:30 PM EDT Appointment Hematology and Oncology at [place] [address] 02/22/2025 2:30 PM EDT Office Visit Hematology and Oncology at [place] [address] Ellis Childers MD [facility] [address] [place] [address] Felicita Landa APRN [facility] [place] [address] documented as of this encounter Visit Diagnoses Not on filedocumented in this encounter Care Teams Bag Worker Relationship Specialty Start Date End Date Radha Mckeon MD [address] [place] [address] PCP - General 09/23/10 documented as of this encounter
--- OUTSIDE RECORDS SUMMARY | 2024-07-24 17:31 | XMS_ITS | Encounter Summary ---
Author Organization [facility] [place] [address] Care Team Providers Care Manager Systems Name Role Phone Radha Mckeon MD Primary Care Provider [phone] Encounter Details Date Type Department Care Team (Late st Contact Info) Description 04/11/2015 Telephone Cardiology at [address] [phone] Diogo Robb PA [facility] [place] [address] Social History Tobacco Use Types Packs/Day Years [...] encounter Miscellaneous Notes * Telephone Encounter - Diane Santiago - 04/11/2015 11:30 AM EDT Diogo, Please call Mr. Machado. He called today hoping to speak with you about recent testing. He said that he has had both an ecg and monitor, not ordered by you, but that he specifically asked that results be sent to you for discussion. He can be reached at home [phone]. Or on his cell [phone] later this afternoon. Thank You, Diane documented in this encounter Plan of Treatment Upcoming Encounters Date Type Department Care Team (Late st Contact Info) Description 08/18/2024 11:00 AM EDT Hospital Encounter Non-Invasive [place] [address] Arrived 02/22/2025 1:30 PM EDT Appointment Hematology [place] [address] 02/22/2025 2:30 PM EDT Office Visit Hematology [place] [address] Ellis Childers MD [facility] DR [place] [address] Felicita Landa APRN [facility] [address] [place] [address] documented as of this encounter Visit Diagnoses Not on filedocumented in this encounter Care Teams Manager Systems Relationship Specialty Start Date End Date Radha Mckeon MD [address] [place] [address] PCP - General 09/23/10 documented as of this encounter
--- OUTSIDE RECORDS SUMMARY | 2024-07-24 17:31 | XMS_ITS | Encounter Summary ---
Author Organization [facility] [place] [address] Care Team Providers Care Taxi Driver Supervisor Name Role Phone Radha Mckeon MD Primary Care Provider [phone] Reason for Visit * Reason Comments Right Knee Pain R TKA DOS 01/14/10 Encounter Details Date Type Department Care Team (Late st Contact Info) Description 11/15/2014 4:00 PM EST Office [place] [address] Ganga Mi MD [facility] [place] [address] Total knee replacement status, right; Status post right knee replacement Discharge Disposition: [...] Sign Reading Time Taken Comments Blood Pressure 144/75 11/15/2014 4:38 PM EST Pulse 59 11/15/2014 4:38 PM EST Temperature - - Respiratory Rate - - Oxygen Saturation - - Inhaled Oxygen Concentration - - Weight 88 kg (194 lb) 11/15/2014 4:38 PM EST sta ronaldo Height 182.9 cm (6') 11/15/2014 4:38 PM EST stat ed Body Mass Index 26.31 11/15/2014 4:38 PM EST documented in this encounter Progress Notes * Ganga Mi - 11/15/2014 4:53 PM EST Mr. Machado is a 64-year-old gentleman who is now five years status post a right total knee replacement, specifically posterior cruciate-retaining porous rotating platform. This is a man with a chronic pain syndrome who is still being seen and actually was seen today by Dr. Royal over at the pain center. Primarily back complaint, but again the amount of pain that he has in his back is usually 8/10, but he also has pain in his knee, which sometimes he says is even worse, although his knee exam has never ever been compatible with either infection, loosening, or excessive wear. We have worked him up, ruled out infection, and with his x-rays have always looked fine. It is hard to explain this except on some unfortunate, but pathological neuropathic etiology. On physical examination today, he can come into full extension. He still has straight leg raising. He does still have his atrophy. His incisions are all well healed. There is no swelling that I could elicit. There is no increased warmth and yet, he still gets about 95 degrees of flexion with very satisfactory alignment and the patella tracks well. As noted above, his x-rays continue to show satisfactory position of the implant; nothing to suggest stress shielding, implant failure, loosening, or malposition. ASSESSMENT: I think under the circumstances I think we are in good straits, but I really cannot do anything specifically for this knee and there is hope that just that the pain management being afforded by Dr. Royal with the pain center will favorably spill over. If, however, there is a change in his findings I mentioned or really swelling or erythema with or without any systemic illness, he should be seen sooner rather than later, but I think under the circumstances we will see him in two years' time for followup with x-rays or earlier p.r.n. CC: Radha Mckeon MD documented in this encounter Plan of Treatment Upcoming Encounters Date Type Department Care Team (Late st Contact Info) Description 08/18/2024 11:00 AM EDT Hospital Encounter [place] [address] Arrived 02/22/2025 1:30 PM EDT Appointment [place]ology [place] [address] 02/22/2025 2:30 PM EDT Office Visit [place]ematology [place] [phone] Ellis Childers MD [facility] [address] [place] [address] Felicita Landa APRN [facility] [address] [place] [address] documented as of this encounter Visit Diagnoses Diagnosis Total knee replacement status, right Status post right knee replacement documented in this encounter Care Teams Taxi Driver Supervisor Relationship Specialty Start Date End Date Radha Mckeon MD [address] [place] [address] PCP - General 09/23/10 documented as of this encounter
--- OUTSIDE RECORDS SUMMARY | 2024-07-24 17:31 | XMS_ITS | Encounter Summary ---
Author Organization [facility] [place] [address] Care Team Providers Care Installer Interior Assemblies Name Role Phone Radha Mckeon MD Primary Care Provider [phone] Reason for Visit * Reason Onset Date Comments Other 08/22/2014 at last meeting you had mentioned possibly of a pacemaker in the future Encounter Details Date Type Department Care Team (Late st Contact Info) Description 08/22/2014 Telephone Cardiology at [address] [address] Diogo Robb, PA [facility] [place] [address] Other (at last meeting you had mentioned possibly of a pacemaker in the future) Social History Tobacco Use Types Packs/Day Years [...] * Telephone Encounter - Jesica Avery - 08/23/2014 8:46 AM EDT Nena, Please see Diogo's request about scheduling appt for September. Thank you. * Telephone Encounter - Diogo Robb PA - 08/22/2014 4:34 PM EDT Increasingly frequent episodes of sensation of presyncope. Last Zio showed no afib - HR 45-132(avg 63). Continuing toprol 50mg. Plan - schedule for follow up visit in September(per patient)will need ambulatory monitoring - events are less frequent than weekly * Telephone Encounter - Jesica Avery - 08/22/2014 11:41 AM EDT Oftentimes he gets really dizzy and feels like he is going to drop. His BP has been good on metoprolol, etc. He wonders if he may be getting to the point where he needs a pacemaker. He would like to hear from you soon. It is a 200-mile round trip for him to get here and his is very ill. You can try him for the next hour or after 3pm at home [phone] or try his cell at [phone] documented in this encounter Plan of Treatment Upcoming Encounters Date Type Department Care Team (Late st Contact Info) Description 08/18/2024 11:00 AM EDT Hospital Encounter Non-Invasive [place] [address] Arrived 02/22/2025 1:30 PM EDT Appointment Hematology [place] [address] 02/22/2025 2:30 PM EDT Office Visit Hematology [place] [address] Ellis Childers MD [facility] [place] [address] Felicita Landa APRN [facility] [place] [address] documented as of this encounter Visit Diagnoses Not on filedocumented in this encounter Care Teams Installer Interior Assemblies Relationship Specialty Start Date End Date Radha Mckeon MD [address] [place] [address] PCP - General 09/23/10 documented as of this encounter
--- OUTSIDE RECORDS SUMMARY | 2024-07-24 17:31 | XMS_ITS | Encounter Summary ---
Author Organization [facility] Address [facility] [place] [address] Care Team Providers Care Speed Belt Sander Tender Name Role Phone Radha Mckeon MD Primary Care Provider [phone] Encounter Details Date Type Department Care Team (Latest Contact Info) Description 09/07/2013 2:09 PM EST - 09/07/2013 11:59 PM [facility] Hospital Encounter XRay at [address] [place] [address] Status post total knee replacement Social History Tobacco Use Types [...] AM EDT Hospital Encounter Non-Invasive [place] [address] Arrived 02/22/2025 1:30 PM EDT Appointment Hematology [place] [address] 02/22/2025 2:30 PM EDT Office Visit [place]ematology [place] [address] Ellis Childers MD [facility] [address] [place] [address] Felicita Landa APRN [facility] [address] [place] [address] documented as of this encounter Procedures Procedure Name Priority Date/Time Associated Diagnosis Comments XR KNEE DIAGNOSTIC 1 OR 2 VIEW Routine 09/07/2013 2:26 PM EST Status post total knee replacement documented in this encounter Results * XR knee diagnostic 1 or 2 view (09/07/2013 2:26 PM EST) Anatomical Region Laterality Modality Knee N/A Radiographic Nano ging 09/07/2013 2:26 PM EST Narrative 09/07/2013 3:11 PM EST Examination KNEE 1 OR 2 VIEWS/RIGHT Clinical History tka right side Comparison Multiple examination since 2009. Technique Findings A right total knee arthroplasty is unchanged in appearance and alignment and no radiolucencies or periprosthetic fracture or effusion. ??The patella is low lying. The mildly narrowed left medial knee joint space is similar to previous examination. Impression ? 1. Uncomplicated right total knee arthroplasty. ? 2. Mild Left knee osteoarthropathy, unchanged. Procedure Note Sierra Isidro MD - 09/07/2013 Examination KNEE 1 OR 2 VIEWS/RIGHT Clinical History tka right side Comparison Multiple examination since 2009. Technique Findings A right total knee arthroplasty is unchanged in appearance and alignmentand no radiolucencies or periprosthetic fracture or effusion. The patella is low lying. The mildly narrowed left medial knee joint space is similar to previous examination. Impression 1. Uncomplicated right total knee arthroplasty. 2. Mild Left knee osteoarthropathy, unchanged. Ganga Mi MD IMG DX ORDERABLES documented in this encounter Visit Diagnoses Diagnosis Status post total knee replacement Knee joint replacement by other means documented in this encounter Care Teams Speed Belt Sander Tender Relationship Specialty Start Date End Date Radha Mckeon MD [address] [place] [address] PCP - General 09/23/10 documented as of this encounter
--- OUTSIDE RECORDS SUMMARY | 2024-07-24 17:31 | XMS_ITS | Encounter Summary ---
Author Organization [facility] [place] [address] Care Team Providers Care Wealth Management Manager Name Role Phone Radha Mckeon MD Primary Care Provider [phone] Encounter Details Date Type Department Care Team (Late st Contact Info) Description 09/23/2013 Ancillary Procedure Radiology Library at [facility] [place] [phone] [address] [place] [address] Social History Tobacco Use Types Packs/Day Years [...] AM EDT Hospital Encounter Non-Invasive Cardiology Lab [facility] [place] [address] Arrived 02/22/2025 1:30 PM EDT Appointment [place] [address] 02/22/2025 2:30 PM EDT Office Visit [place] [address] Ellis Childers MD [facility] DR HEMATOLOG[place] [address] Felicita Landa APRN [facility] HEMATOLOG[place] [address] documented as of this encounter Procedures Procedure Name Priority Date/Time Associated Diagnosis Comments FILM LIBRARY STORAGE ONLY DX SPINE Routine 09/23/2013 12:00 AM EST documented in this encounter Results * Film Library- Storage Only DX Spine (09/23/2013 12:00 AM EST) Narrative [facility] - 10/16/2020 6:27 PM EST This exam is auto-finalizing. It's purpose is for storage only. Sera White APRN [employer] FILM LIBRARY ORD ERABLES [place], [place] documented in this encounter Visit Diagnoses Not on filedocumented in this encounter Care Teams Wealth Management Manager Relationship Specialty Start Date End Date Radha Mckeon MD [address] [place] [address] PCP - General 09/23/10 documented as of this encounter
--- OUTSIDE RECORDS SUMMARY | 2024-07-24 17:31 | XMS_ITS | Encounter Summary ---
Author Organization [facility] [place] [address] Care Team Providers Care Dramatic Critic Name Role Phone Radha Mckeon MD Primary Care Provider [phone] Encounter Details Date Type Department Care Team (Late st Contact Info) Description 10/23/2014 Orders [place] [address] Ganga Mi MD [facility] DR [place] [address] Aftercare following joint replacement (Primary Dx) Social History Tobacco Use Types [...] AM EDT Hospital Encounter Non-Invasive [place] [address] Arrived 02/22/2025 1:30 PM EDT Appointment Hematology [place] [address] 02/22/2025 2:30 PM EDT Office Visit Hematology [place] [address] Ellis Childers MD [facility] [address] HEMATOLOGY [place] [address] Felicita Landa APRN [facility] [address] HEMATOLOGY [place] [address] documented as of this encounter Results * XR knee diagnostic 1 or 2 view (11/15/2014 2:49 PM EST) Anatomical Region Laterality Modality Knee N/A Radiographic Nano ging 11/15/2014 2:49 PM EST Impressions 11/15/2014 3:48 PM EST IMPRESSION: Status post right total knee replacement, no sign of postop complication or joint effusion. Mild osteopenia. Normal-appearing left knee. Narrative 11/15/2014 3:48 PM EST EXAMINATION: KNEE 1 OR 2 VIEWS/RIGHT CLINICAL HISTORY: R TKA DOS 01/14/10 TECHNIQUE: AP and lateral views of the right knee COMPARISON: 09/07/2013 FINDINGS: The patient is status post right total knee replacement. No signs of postop complication or joint effusion. The left knee shows no significant osteoarthritis or fracture. Bones are mildly osteopenic. Procedure Note Alfred Kang MD - 11/15/2014 EXAMINATION: KNEE 1 OR 2 VIEWS/RIGHT CLINICAL HISTORY: R TKA DOS 01/14/10 TECHNIQUE: AP and lateral views of the right knee COMPARISON: 09/07/2013 FINDINGS: The patient is status post right total knee replacement. Nosigns of postop complication or joint effusion. The left knee shows nosignificant osteoarthritis or fracture. Bones are mildly osteopenic. IMPRESSION IMPRESSION: Status post right total knee replacement, no sign of postop complicationor joint effusion. Mild osteopenia. Normal-appearing left knee. Ganga Mi MD IMG DX ORDERABLES documented in this encounter Visit Diagnoses Diagnosis Aftercare following joint replacement- Primary Aftercare following joint replacement documented in this encounter Care Teams Dramatic Critic Relationship Specialty Start Date End Date Radha Mckeon MD [address] [place] [address] PCP - General 09/23/10 documented as of this encounter
--- OUTSIDE RECORDS SUMMARY | 2024-07-24 17:31 | XMS_ITS | Encounter Summary ---
Author Organization [facility] [place] [address] Care Team Providers Care Cranberry Bog Supervisor Name Role Phone Radha Mckeon MD Primary Care Provider [phone] Encounter Details Date Type Department Care Team (Late st Contact Info) Description 09/25/2013 Telephone [place] [address] Luiza Puente RN Social History Tobacco Use Types Packs/Day [...] Miscellaneous Notes * Telephone Encounter - Luiza uPente RN - 09/25/2013 11:03 AM EST Follow up call made to Malik Machado concerning his bone scan. Read Dr Mi 's letter to patient with Dr Mi's recommendations. Patient will call as needed. documented in this encounter Plan of Treatment Upcoming Encounters Date Type Department Care Team (Late st Contact Info) Description 08/18/2024 11:00 AM EDT Hospital Encounter Non-[place] [address] Arrived 02/22/2025 1:30 PM EDT Appointment Hematology and Oncology at [place] [address] 02/22/2025 2:30 PM EDT Office Visit [place]ematology [place] [address] Ellis Childers MD [facility] [address] [place] [address] Felicita Landa APRN [facility] [address] [place] [address] documented as of this encounter Visit Diagnoses Not on filedocumented in this encounter Care Teams Cranberry Bog Supervisor Relationship Specialty Start Date End Date Radha Mckeon MD [address] [place] [address] PCP - General 09/23/10 documented as of this encounter
--- OUTSIDE RECORDS SUMMARY | 2024-07-24 17:31 | XMS_ITS | Encounter Summary ---
Author Organization [facility] [place] [address] Care Team Providers Care Carroting Machine Operator Name Role Phone Radha Mckeon MD Primary Care Provider [phone] Reason for Visit * Reason Onset Date Comments Other 08/23/2014 ZIO ORDER Encounter Details Date Type Department Care Team (Late st Contact Info) Description 08/23/2014 Telephone Cardiology at [address] [address] Diogo Robb, PA [facility] [place] [address] Other (ZIO ORDER) Social History Tobacco Use Types Packs/Day Years [...] encounter Miscellaneous Notes * Telephone Encounter - JackiDane Jaxon - 08/23/2014 4:49 PM EDT Diogo, Please sign the attached zio order. Mr. Machado is scheduled to see you on September 17, 2014 to coordinate with his 's appointments. Thank You, Diane documented in this encounter Plan of Treatment Upcoming Encounters Date Type Department Care Team (Late st Contact Info) Description 08/18/2024 11:00 AM EDT Hospital Encounter Non-[place]vasive [place] [address] Arrived 02/22/2025 1:30 PM EDT Appointment Hematology [place] [address] 02/22/2025 2:30 PM EDT Office Visit Hematology [place] [address] Ellis Childers MD [facility] DR [place] [address] Felicita Landa APRN [facility] [address] [place] [address] documented as of this encounter Results * ZIOPATCH (09/14/2014 2:17 PM EST) Anatomical Region Laterality Modality Other Narrative 10/09/2014 12:[address] [facility] ZIO PATCH ??REPORT Ordering Provider: ??ANDREE [...] associated with sinus rhythm. Sumeet Peñaloza DO Dump Motor Operator Cardiac Electrophysiology Department [place], [place] ) Pager [phone]) Sumeet Peñaloza DO CARDIAC SERVICES ORD ERABLES documented in this encounter Visit Diagnoses Diagnosis Syncope- Primary Syncope and collapse Syncope Syncope and collapse documented in this encounter Care Teams Carroting Machine Operator Relationship Specialty Start Date End Date Radha Mckeon MD [address] [place] [address] PCP - General 09/23/10 documented as of this encounter
--- OUTSIDE RECORDS SUMMARY | 2024-07-24 17:31 | XMS_ITS | Encounter Summary ---
[place] [address] Care Team Providers Care Karate Black Belt Name Role Phone Radha Mckeon MD Primary Care Provider [phone] Reason for Visit * Reason Onset Date Comments Medication Refill 04/21/2016 Encounter Details Date Type Department Care Team (Late st Contact Info) Description 04/21/2016 Refill Cardiology at [address] [address] Diogo Robb PA [facility] [place] [address] Medication Refill Social History Tobacco Use Types [...] EDT Hospital Encounter Non-Invasive Cardiology [place] [address] Arrived 02/22/2025 1:30 PM EDT Appointment Hematology [place] [address] 02/22/2025 2:30 PM EDT Office Visit Hematology and Oncology at [place] [phone] Ellis Childers MD [facility] DR HEM[place]OLOGY [place] [address] Felicita Landa APRN [facility] DR HEMATOLOGY [place] [address] documented as of this encounter Visit Diagnoses Not on filedocumented in this encounter Care Teams Karate Black Belt Relationship Specialty Start Date End Date Radha Mckeon MD [address] [place] [address] PCP - General 09/23/10 documented as of this encounter
--- OUTSIDE RECORDS SUMMARY | 2024-07-24 17:31 | XMS_ITS | Encounter Summary ---
Author Organization [facility] [place] [address] Care Team Providers Care Nutrition Educator Name Role Phone Radha Mckeon MD Primary Care Provider [phone] Encounter Details Date Type Department Care Team (Late st Contact Info) Description 12/18/2014 10:40 AM EST Follow-Up Cardiology at [address] [address] Diogo Robb PA [facility] [place] [address] Episodic lightheadedness Discharge Disposition: Home Social History Tobacco Use [...] Sign Reading Time Taken Comments Blood Pressure 142/88 12/18/2014 11:04 AM EST Pulse 57 12/18/2014 11:04 AM EST Temperature - - Respiratory Rate - - Oxygen Saturation 97% 12/18/2014 11:04 AM EST Inhaled Oxygen Concentration - - Weight 87.5 kg (193 lb) 12/18/2014 11:04 AM EST Height 182.9 cm (6') 12/18/2014 11:04 AM EST Body Mass Index 26.18 12/18/2014 11:04 AM EST documented in this encounter Patient Instructions * Patient Instructions* Diogo Robb PA - 12/18/2014 11:57 AM EST Increase metoprolol to 150mg once daily No routine follow up required documented in this encounter Progress Notes * Diogo Robb PA - 12/18/2014 12:22 PM EST Subjective: Patient ID: Malik Machado is a 64 y.o. male. HPI 62yo man with hx PAF, insufficiently controlled with antiarrythmics, now s/p PVI(12/2012) complicated by pericarditis(no effusion by echo). He reports periodic sensation of irregular or faster heart rate that has not been consistently correlated with an arrythmia. Without recurrence of afib, his coumadin was discontinued in April 2013. He continues on toprol 50mg daily which was increased to 75mg daily in an effort to suppress premature beats. Beta blockade was initially used with caution as he had a trend to bradycardia and a RBBB with LAHB. EKG and ambulatory monitoring have not demonstrated worsening bradycardia or changes in intervals. Blood pressure is elevated in the 130s/80-90s at visits. He does not routinely check BP at home. He is also currently under evaluation for chronic pain issues and relatively new migraines. Patient Active Problem List Diagnosis Code ??? Chronic back pain greater than 3 months duration 724.5, 338.29 ??? Knee pain 719.46 ??? Lumbar radiculopathy 724.4 ??? A-fib 427.31 ??? Hypertension 401.9 ??? 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 S/P knee replacement V43.65 ??? Acute pleuropericarditis s/p atrial fibrillation ablation 420.90 ??? Odynophagia s/p Atrial fibrillation and ELOY 787.20 ??? Thrombocytopenia - chronic 287.5 Review of Systems Constitutional: Negative for fever, chills, diaphoresis and fatigue. Respiratory: Negative for cough, choking, chest tightness, shortness of breath and stridor. Cardiovascular: Positive for chest pain and palpitations. Negative for leg swelling. Gastrointestinal: Negative for nausea, vomiting and diarrhea. Genitourinary: Negative for dysuria, frequency and hematuria. Musculoskeletal: Positive for back pain. Skin: Negative for pallor. Neurological: Positive for light-headedness. Negative for syncope, facial asymmetry, speech difficulty and headaches. History Substance Use Topics ??? Smoking status: Former Smoker Quit date: 08/13/1983 ??? Smokeless tobacco: Never Used ??? Alcohol Use: No Current Outpatient Rx Name Route Sig Dispense Refill ??? oxyCODONE (ROXICODONE) 15 mg Tablet Oral Take 15 mg by mouth every 4 hours as needed for Pain. ??? metoprolol succinate (TOPROL-XL) 100 mg Tablet Sustained Release 24 hr Oral Take 1.5 tablets by mouth daily. 45 tablet 3 ??? DISCONTD: memantine (NAMENDA) 10 mg Tablet Oral Take 10 mg by mouth 2 times daily. ??? MULTIVITAMIN W-MINERALS/LUTEIN (CENTRUM SILVER ORAL) Oral Take 1 tablet by mouth. ??? Granite-3 Fatty Acids-Vitamin E (FISH OIL) 1,000 mg Cap Oral Take 1,000 mg by mouth 2 times daily. ??? acetaminophen (TYLENOL) 500 mg tablet Oral Take 1,000 mg by mouth as needed. Indications: Headache Disorder, Pain ??? baclofen (LIORESAL) 10 mg tablet Oral Take 10 mg by mouth daily. ??? simvastatin (ZOCOR) 10 mg tablet Oral Take 10 mg by mouth nightly. ??? SUMAtriptan (IMITREX) 100 mg tablet Oral Take 100 mg by mouth as needed. ??? zolpidem (AMBIEN) 5 mg tablet Oral Take 5 mg by mouth nightly as needed. 1 to 2 tabs hs prn ??? glucosamine-chondroitin 500-400 mg tablet Oral ??? NAMENDA XR 14 mg capsule,sprinkle,ER 24hr 0 ??? DISCONTD: OXYcodone-acetaminophen (PERCOCET) 5-325 mg per tablet Oral Take 1 tablet by mouth every 4 hours as needed. Objective: Physical Exam Constitutional: He is oriented to person, place, and time. No distress. Cardiovascular: Normal rate and regular rhythm. Pulmonary/Chest: Effort normal and breath sounds normal. Musculoskeletal: Normal range of motion. He exhibits no edema. Neurological: He is alert and oriented to person, place, and time. Skin: Skin is warm and dry. He is not diaphoretic. Vitals reviewed. 12 lead EK12/18/2014 Sinus bradycardia @ 55; AR 156; QRS 146; QTc 397ms Zio: 09/2014 Rhythm interpretation: 14 day 0 hourZio patch recording. Mean HR 69 bpm, range 47-176 bpm. Rare [...] 7 all correlated with sinus rhythm. Impression: Symptomatic nonsustained SVT with 4/5 events associated with triggered events. All diary events were associated with sinus rhythm. Assessment and Plan: 64yo man with hx PAF, s/p failed flecainide, dofetilide, then PVI ablation with good suppression. He has periodically demonstrated brief episodes of short R-P SVT However these events do not consistently correlate with symptoms. He is maintained on metoprolol 75mg daily and does not report any adverse effects related to this. He has not demonstrated any recurrent afib and is no longer on anticoagulation. We discussed various possible causes of his symptoms and potential treatment strategies. EPS/ablation seems unlikely to be fruitful as the only recorded SVTepisodes to date are brief(11 beats or less). His BP is normal or elevated and he seems to be tolerating beta alex at current dosing quite well. Will trial increased metoprolol to 150mg daily. Would consider addition or substitution of verapamil if ineffective/intolerant. Provider: ANDREE Shelley Provider#: [id number] Consult attending physician: Cynthia Gilmore MD documented in this encounter Plan of Treatment Upcoming Encounters Date Type Department Care Team (Late st Contact Info) Description 08/18/2024 11:00 AM EDT Hospital Encounter Non-[place] [address] Arrived 02/22/2025 1:30 PM EDT Appointment Hematology [place] [address] 02/22/2025 2:30 PM EDT Office Visit Hematology [place] [address] Ellis Childers MD [facility] DR [place] [address] Felicita Landa APRN [facility] [address] [place] [address] documented as of this encounter Procedures Procedure Name Priority Date/Time Associated Diagnosis Comments GEOMATICS PROFESSOR SCAN 04/29/2015 12:00 AM EDT EKG 12-LEAD Routine 12/18/2014 11:35 AM EST Episodic lightheadedness documented in this encounter Results * SCAN DOC: GEOMATICS PROFESSOR (04/29/2015 12:00 AM EDT) Anatomical Region Laterality Modality Other Scanning Provider MEDIA MGR SCAN EXT O RDR/RSLT * EKG 12 Lead (12/18/2014 11:35 AM EST) Ventricular rate 55 BPM MUSE SYSTEM Atrial Rate 55 BPM MUSE SYSTEM P-R Interval 156 ms MUSE SYSTEM QRS Duration 146 ms MUSE SYSTEM Q-T Interval 416 ms MUSE SYSTEM QTC Calculated (Bezet) 397 ms MUSE SYSTEM Calculated P [place] 22 degrees MUSE SYSTEM Calculated R [place] -52 degrees MUSE SYSTEM Calculated T [place] 3 degrees MUSE SYSTEM INTERPRETATION Sinus bradycardia Right bundle branch block Left anterior fascicular block Bifascicular block Abnormal ECG When compared with ECG of 02-FEB-2013 15:36, No significant change was found Confirmed by MD AKIRA, FREEDOM ([id number]) on 12/19/2014 8:26:46 AM MUSE SYSTEM 12/18/2014 11:3 5 AM EST 12/19/2014 8:26 AM EST Cullen Gilmore MD ECG ORDERABLES MUSE SYSTEM documented in this encounter Visit Diagnoses Diagnosis Episodic lightheadedness Dizziness and giddiness documented in this encounter Care Teams Nutrition Educator Relationship Specialty Start Date End Date Radha Mckeon MD [address] [place] [address] PCP - General 09/23/10 documented as of this encounter
--- OUTSIDE RECORDS SUMMARY | 2024-07-24 17:31 | XMS_ITS | Encounter Summary ---
Author Organization [facility] [place] [address] Care Team Providers Care Covering Machine Operator Helper Name Role Phone Radha Mckeon MD Primary Care Provider [phone] Reason for Referral * Diagnostic Test (Routine) - Closed Specialty Diagnoses / Procedures Referred By Becki t Referred To Contact Cardiology Diagnoses SVT (supraventricular tachycardia) Procedures Echocardiogram Transthoracic(Leb) Diogo Robb PA [facility] [place] [address] [facility] [place] [address] Referral ID Status Reason Start Date Expiration Date V isits Requested Visits Authorized [id number] Closed Specialty Service Requested 04/13/2016 04/13/2017 1 1 Reason for Visit * Diagnostic Test (Routine) - Closed Specialty Diagnoses / Procedures Referred By Becki foreman Referred To Contact Cardiology Diagnoses SVT (supraventricular tachycardia) Procedures Echocardiogram Transthoracic(Leb) Diogo Robb PA [facility] [place] [address] [facility] [place] [address] Referral ID Status Reason Start Date Expiration Date V isits Requested Visits Authorized [id number] Closed Specialty Service Requested 04/13/2016 04/13/2017 1 1 Encounter Details Date Type Department Care Team (Latest Contact Info) Description 04/30/2016 9:28 AM EDT - 04/30/2016 11:59 PM EDT Hospital Encounter [place] [address] Sanford Byrd MD [facility] [place] [address] SVT (supraventricular tachycardia) Discharge Disposition: Home Social History Tobacco Use [...] tablet Take 10 mg by mouth nightly. meTOPROLOL succinate (TOPROL-XL) 100 mg Tablet Sustained Release 24 hr Take 1 tablet by mouth daily. 30 tablet 04/22/2016 09/10/2016 omeprazole (PRILOSEC) 40 mg Capsule, Delayed Release(E.C.) Take 20 mg by mouth 2 times daily. 03/17/2016 01/11/2018 ranitidine (ZANTAC) 150 mg Tablet Take 150 mg by mouth nightly. 03/18/2016 12/13/2018 SUMAtriptan (IMITREX) 20 mg/actuation [place], Non-Aerosol 1 spray by Nasal route as [...] as needed. Indications: Headache Disorder, Pain 11/17/2019 SUMAtriptan (IMITREX) 100 mg tablet Take 100 [...] AM EDT Hospital Encounter [place] [address] Arrived 02/22/2025 1:30 PM EDT Appointment Hematology and Oncology at [place] [address] 02/22/2025 2:30 PM EDT Office Visit Hematology and Oncology at [place] [phone] Ellis Childers MD [facility] [address] [place] [address] Felicita Landa APRN [facility] [address] [place] [address] documented as of this encounter Procedures Procedure Name Priority Date/Time Associated Diagnosis Comments ECHO COMPLETE Routine 04/30/2016 10:25 AM EDT SVT (supraventricular tachycardia) documented in this encounter Results * ECHO COMPLETE (04/30/2016 10:25 AM EDT) EF 64 HEARTLAB SYSTEM Anatomical Region Laterality Modality Other 04/30/2016 Narrative 04/30/2016 10:39 AM EDT Procedure: ?Transthoracic Echocardiogram Patient: ?MILY Foreman ?(Age): 1950(65y) Med Rec#: ? [id number] ?Sex: ?M ? Site Loc: ? [facility] ?Ht / Wt: ??183(cm)/84(kg) Pt. Loc: ?Echo Lab ?BSA: ?2.06 Study Date: ?? 04/30/2016 ?Pt. Type: Outpatient Tape: ? Referring: Sanford Byrd Reading: Jesse Tristan ([id number]) Senior Credit Officer: Dania Dorado [facility] Diagnosis: *ICD-10-PCS Supraventricular tachycardia (I47.1) *SVT (427.0) CPT Codes: *Echo Full (03468) *Spectral Doppler (53230) *Color Doppler (47231) Indication: ?? SVT Rhythm: ? Sinus BP: ? 148/97 HR: ? 57 SUMMARY: 1. There is normal global left ventricular systolic function. ??The quantitative left ventricular ejection fraction by biplane Herrera's method is 64%. ??There are no left ventricular segmental wall motion abnormalities. 2. Right ventricular chamber size, wall thickness, and systolic function are within normal limits. 3. There is no hemodynamically significant valve disease. 4. See remainder of report for additional findings. Findings ? : Left Ventricle: ? The left ventricular chamber size is normal. ?Left ventricular wall thickness is normal. ?No ventricular septal defect is visualized. ?There is normal global left ventricular systolic function. ?The quantitative left ventricular ejection fraction by biplane Herrera's method is 64%. ?There are no left ventricular segmental wall motion abnormalities. ?Doppler assessment is consistent with normal left sided filling pressure. Left Atrium: ? The left atrium is normal in size. 32 ml/m2. Right Ventricle: ? Right ventricular chamber size, wall thickness, and systolic function are within normal limits. ?The estimated pulmonary artery systolic pressure is 22.37 mmHg. ?The estimated right atrial pressure is 3 mmHg. Right Atrium: ? The right atrium is mildly dilated. Aortic Valve: ? The aortic valve is not well visualized. ?The aortic valve is probably tricuspid. ?There is no evidence of aortic valve thickening. ?Mild (1+/4+) aortic valve regurgitation is present. Mitral Valve: ? The mitral valve appears normal in structure and function. ?There is mild (1+/4+) mitral regurgitation present. Tricuspid Valve: ? The tricuspid valve appears normal in structure and function. ?There is mild (1+/4+) tricuspid regurgitation present. Pulmonic Valve: ? The pulmonic valve appears normal in structure and function. ?There is mild (1+/4+) pulmonic regurgitation present. Pericardium: ? The pericardium appears normal and there is no evidence of a pericardial effusion. Aorta: ? The aortic root is normal in size. ?The ascending aorta is normal in size. ?There is no evidence of coarctation of the aorta. Pulmonary Artery: ? The main pulmonary artery appears normal. Venous: ? The inferior vena cava appears normal in size. ?There is a greater than 50% respiratory change in the inferior vena cava dimension. Misc: ? See remainder of report for additional findings. ?Two-dimensional echo, spectral Doppler and color Doppler performed. ?FANY performed Chambers 2D ?Value ?Units (Range) ? IVSd (2D) ? 1 ?cm ? LVPWd (2D) ?0.9 ?cm ? IVS:LVPW ratio (2D) 1.1 ?ratio ? LVIDd (2D) ?5.2 ?cm ? LVIDs (2D) ?3.9 ?cm ? LVIDd (2D) index ?2.5 ?cm/m2 ? LVIDs (2D) index ?1.9 ?cm/m2 ? LV FS (2D) ?25 ? % ? EF Teichholz (2D) ?? 50 ? % ? Ao root diameter (2D3.1 ?cm (2.1 - 3.6) ? Ascending Ao ?3.2 ?cm (2 - 3.5) ? Volumes/Mass ?Value ?Units (Range) ? LA Area 4 CH ?19 ? cm2 (<21) ? LA ESV BP (A/L) inde32 ? ml/m2 ? RA AREA 4CH ? 18 ? cm2 ? LA ESV SP 4CH (MOD) 56 ? ml ? LA ESV SP 2CH (MOD) 65.2 ? ml ? LA ESV BP (MOD) inde32 ? ml/m2 ? LV ESV SP 4CH (MOD) 53.1 ? ml ? LV ESV SP 2CH (MOD) 60.3 ? ml ? LV EDV BP ? 157.2 ?ml ? LV ESV BP ? 56.9 ? ml ? BP EF (MOD) ? 64 ? % ? Global Longiitudinal-18.5 ?% (-30 - -10) ? LV mass (2D) ?175.6 ?g ? LV mass (2D) index ??85.2 ? g/m2 ? Diastolic/Systolic Function ?Value ?Units (Range) ? MV E-wave Vmax ?0.7 ?m/sec ? MV deceleration rysm892.6 ?msec ? MV A-wave Vmax ?0.5 ?m/sec ? MV E:A ratio ?1.3 ?ratio ? LV septal e' Vmax ?? 0.1 ?m/sec ? LV E:e' septal ratio8.4 ?ratio ? Aortic Valve ?Value ?Units (Range) ? AV Vmax ? 1 ?m/sec ? AV peak gradient ?3.8 ?mmHg ? LVOT Vmax ? 0.8 ?m/sec ? LVOT peak gradient ??2.5 ?mmHg ? DOI (Vmax) ?0.8 ?ratio ? AR PHT ?1847.1 ? msec ? AR peak gradient ?58.9 ? mmHg ? Tricuspid Valve ?Value ?Units (Range) ? TR Vmax ? 2.2 ?m/sec ? TR peak gradient ?19.4 ? mmHg ? RAP ? 3 ?mmHg ? RVSP ?22.4 ? mmHg ? Pulmonic Valve/Qp:Qs ?Value ?Units (Range) ? AR end-diastolic Vma1.1 ?m/sec ? PA end-diastolic pre7.8 ?mmHg ? Measurement Trending Name ? 04/30/2016 ? LV EDV BP ?157.22 LVIDd (2D) ? 5.23 LV ESV BP ?56.9 LVIDs (2D) ? 3.9 Wall Motion: Segment Name ?Rest ? Base-Anteroseptal ?? Normal ? Base-Anterior ? Normal ? Base-Anterolateral ??Normal ? Base-Posterolateral Normal ? Base-Inferior ? Normal ? Base-Inferoseptal ?? Normal ? Mid-Anteroseptal ?Normal ? Mid-Anterior ?Normal ? Mid-Anterolateral ?? Normal ? Mid-Posterolateral ??Normal ? Mid-Inferior ?Normal ? Mid-Inferoseptal ?Normal ? [place]-Septal ? Normal ? [place]-Anterior ? Normal ? [place]-Lateral ?Normal ? [place]-Inferior ? Normal ? [place]-Tip ?Normal ? This report has been electronically signed by: Jesse Tristan M.D. ? 04/30/2016 10:39:25 Images reviewed and interpretation verified [facility] Cardiac Ultrasound Laboratory Procedure Note Jesse Tristan MD - 04/30/2016 Procedure: Transthoracic Echocardiogram Patient: MILY [place](Age): 1950(65y) Med Rec#: [id number] Sex: M Site Loc: [facility] Ht / Wt: 183(cm)/84(kg) Pt. Loc: Echo Lab BSA: 2.06 Study Date: 04/30/2016 Pt. Type: Outpatient Tape: Referring: Sanford Byrd Reading: Jesse Tristan ([id number]) Senior Credit Officer: Dania Dorado RDCS Diagnosis: *ICD-10-PCS Supraventricular tachycardia (I47.1) *SVT (427.0) CPT Codes: *Echo Full (91438) *Spectral Doppler (69951) *Color Doppler (72938) Indication: SVT Rhythm: Sinus BP: 148/97 HR: 57 SUMMARY: 1. There is normal global left ventricular systolic function. The quantitative left ventricular ejection fraction by biplane Herrera's method is 64%. There are no left ventricular segmental wall motion abnormalities. 2. Right ventricular chamber size, wall thickness, and systolic function are within normal limits. 3. There is no hemodynamically significant valve disease. 4. See remainder of report for additional findings. Findings : Left Ventricle: The left ventricular chamber size is normal. Left ventricular wall thickness is normal. No ventricular septal defect is visualized. There is normal global left ventricular systolic function. The quantitative left ventricular ejection fraction by biplane Herrera's method is 64%. There are no left ventricular segmental wall motion abnormalities. Doppler assessment is consistent with normal left sided filling pressure. Left Atrium: The left atrium is normal in size. 32 ml/m2. Right Ventricle: Right ventricular chamber size, wall thickness, and systolic function are within normal limits. The estimated pulmonary artery systolic pressure is 22.37 mmHg. The estimated right atrial pressure is 3 mmHg. Right Atrium: The right atrium is mildly dilated. Aortic Valve: The aortic valve is not well visualized. The aortic valve is probably tricuspid. There is no evidence of aortic valve thickening. Mild (1+/4+) aortic valve regurgitation is present. Mitral Valve: The mitral valve appears normal in structure and function. There is mild (1+/4+) mitral regurgitation present. Tricuspid Valve: The tricuspid valve appears normal in structure and function. There is mild (1+/4+) tricuspid regurgitation present. Pulmonic Valve: The pulmonic valve appears normal in structure and function. There is mild (1+/4+) pulmonic regurgitation present. Pericardium: The pericardium appears normal and there is no evidence of a pericardial effusion. Aorta: The aortic root is normal in size. The ascending aorta is normal in size. There is no evidence of coarctation of the aorta. Pulmonary Artery: The main pulmonary artery appears normal. Venous: The inferior vena cava appears normal in size. There is a greater than 50% respiratory change in the inferior vena cava dimension. Misc: See remainder of report for additional findings. Two-dimensional echo, spectral Doppler and color Doppler performed. FANY performed Chambers 2D Value Units (Range) IVSd (2D) 1 cm LVPWd (2D) 0.9 cm IVS:LVPW ratio (2D) 1.1 ratio LVIDd (2D) 5.2 cm LVIDs (2D) 3.9 cm LVIDd (2D) index 2.5 cm/m2 LVIDs (2D) index 1.9 cm/m2 LV FS (2D) 25 % EF Teichholz (2D) 50 % Ao root diameter (2D3.1 cm (2.1 - 3.6) Ascending Ao 3.2 cm (2 - 3.5) Volumes/Mass Value Units (Range) LA Area 4 CH 19 cm2 (<21) LA ESV BP (A/L) inde32 ml/m2 RA AREA 4CH 18 cm2 LA ESV SP 4CH (MOD) 56 ml LA ESV SP 2CH (MOD) 65.2 ml LA ESV BP (MOD) inde32 ml/m2 LV ESV SP 4CH (MOD) 53.1 ml LV ESV SP 2CH (MOD) 60.3 ml LV EDV BP 157.2 ml LV ESV BP 56.9 ml BP EF (MOD) 64 % Global Longiitudinal-18.5 % (-30 - -10) LV mass (2D) 175.6 g LV mass (2D) index 85.2 g/m2 Diastolic/Systolic Function Value Units (Range) MV E-wave Vmax 0.7 m/sec MV deceleration vgll516.6 msec MV A-wave Vmax 0.5 m/sec MV E:A ratio 1.3 ratio LV septal e' Vmax 0.1 m/sec LV E:e' septal ratio8.4 ratio Aortic Valve Value Units (Range) AV Vmax 1 m/sec AV peak gradient 3.8 mmHg LVOT Vmax 0.8 m/sec LVOT peak gradient 2.5 mmHg DOI (Vmax) 0.8 ratio AR PHT 1847.1 msec AR peak gradient 58.9 mmHg Tricuspid Valve Value Units (Range) TR Vmax 2.2 m/sec TR peak gradient 19.4 mmHg RAP 3 mmHg RVSP 22.4 mmHg Pulmonic Valve/Qp:Qs Value Units (Range) AR end-diastolic Vma1.1 m/sec PA end-diastolic pre7.8 mmHg Measurement Trending Name 04/30/2016 LV EDV BP 157.22 LVIDd (2D) 5.23 LV ESV BP 56.9 LVIDs (2D) 3.9 Wall Motion: Segment Name Rest Base-Anteroseptal Normal Base-Anterior Normal Base-Anterolateral Normal Base-Posterolateral Normal Base-Inferior Normal Base-Inferoseptal Normal Mid-Anteroseptal Normal Mid-Anterior Normal Mid-Anterolateral Normal Mid-Posterolateral Normal Mid-Inferior Normal Mid-Inferoseptal Normal [place]-Septal Normal [place]-Anterior Normal [place]-Lateral Normal Scott [place]-Inferior Normal [place]-Tip Normal This report has been electronically signed by: Jesse Tristan M.D. 04/30/2016 10:39:25 Images reviewed and interpretation verified [facility] Cardiac Ultrasound Laboratory Sanford Byrd MD ECHO ORDERABLES documented in this encounter Visit Diagnoses Diagnosis SVT (supraventricular tachycardia) Other specified cardiac dysrhythmias documented in this encounter Care Teams Covering Machine Operator Helper Relationship Specialty Start Date End Date Radha Mckeon MD [address] [place] [address] PCP - General 09/23/10 documented as of this encounter
--- OUTSIDE RECORDS SUMMARY | 2024-07-24 17:31 | XMS_ITS | Encounter Summary ---
Author Organization [facility] [place] [address] Care Team Providers Care Resistor Testing Machine Operator Name Role Phone Radha Mckeon MD Primary Care Provider [phone] Encounter Details Date Type Department Care Team (Late st Contact Info) Description 02/02/2013 12:38 PM EDT - 02/02/2013 11:59 PM EDT [place] [address] Jyothi Judge MD [facility] [place] [address] High risk medication use; Pericarditis Discharge Disposition: Home Social History Tobacco Use [...] AM EDT Hospital Encounter Non-[place] [address] Arrived 02/22/2025 1:30 PM EDT Appointment Hematology [place] [phone] 02/22/2025 2:30 PM EDT Office Visit Hematology [place] [phone] Ellis Childers MD [facility] DR [place] [address] Felicita Landa APRN [facility] DR [place] [address] documented as of this encounter Procedures Procedure Name Priority Date/Time Associated Diagnosis Comments BASIC METABOLIC PANEL STAT 02/02/2013 12:47 PM EDT High risk medication use Pericarditis documented in this encounter Results * Basic Metabolic Panel (non-fasting) (02/02/2013 12:47 PM EDT) [facility] Glucose 97 60 - 199 mg/dL CERNER MILLENNIUM Comment:Diabetes: >=200 mg/d L plus symptoms Blood Urea Nitrogen 18 10 - 20 mg/dL CERNER MILLENNIUM Creatinine 1.03 0.80 - 1.50 mg/dL CERNER MILLENNIUM Comment: Please note that the pediatric reference intervals supplied above were not validated at [facility]. Results from pediatric patients should be interpreted in conjunction to the patient's age, height and muscle mass. Sodium 137 135 - 145 mmol/L CERNER MILLENNIUM Potassium 4.4 3.5 - 5.0 mmol/L CERNER MILLENNIUM Comment: Please note: ??Patients with WBC >100,000 may have falsely elevated Potassium levels. ??For accurate Potassium quantification in these patients send serum separator tube (gold top) for subsequent determinations. ??Contact the Clinical Chemistry Laboratory if there are any questions. Chloride 101 98 - 107 mmol/L CERNER MILLENNIUM Carbon Dioxide 31 22 - 31 mmol/L CERNER MILLENNIUM Anion Gap 5 5 - 15 mmol/L CERNER MILLENNIUM Calcium 9.8 8.5 - 10.5 mg/dL CERNER MILLENNIUM Est Glomerular Filtration Rate >60 >=60 CERNER MILLENNIUM Comment: The National Kidney Disease Education Program (NKDEP) has recommended all laboratories report estimated GFR (eGFR) along with plasma creatinine measurements to assist you with recognition of early kidney disease. Caveats: ??Plasma creatinine should be at steady-state (unchanged within the past week). For patients multiply eGFR by 1.2. The MDRD equation was developed using patients between the ages of 18 and 70 years. ?? The MDRD equation has not been validated for patients < 18 years of age and should not be used to assess renal function in the pediatric population. ??The MDRD eGFR equation will also overestimate the true GFR of patients above the age of 70. ??This overestimation is variable but increases with age. At present, NKDEP does NOT recommend using the MDRD equation for drug dosing purposes and pharmacists should continue to use their current dosing methods. In addition, numerical eGFR values greater than 60 ml/min/1.73 square meters should be treated as > 60, and not an exact number due to greater inaccuracies at these higher values. Per NKDEP, they classify normal renal function as any GFR >60ml/min/1.73 square meters; chronic kidney disease when GFR <60, and renal failure when GFR <15. ??This calculation may not be valid for patients with atypical muscle mass (very lean or obese), acute renal failure, and in patients with diabetic kidney disease. References: http://nkdep.nih.gov/resources/NKDEP_Suggestn4Labs_0606_508.pdf http://www.kidney.org/professionals/kls/pdf/faq_gfr.pdf Patti K, Diamond NA, Rishabh AK, Basil TS, Nicol AD, Peteke COURTNEY. Relative performance of the MDRD and CKD-EPI equations for estimating glomerular filtration rate among patients with varied clinical presentations. Clin J Am Soc Nephrol;6:1963-72. Blood specimen (specimen) 02/02/2013 12:47 PM EDT 02/02/2013 12:54 PM EDT Narrative Resulting Agency Comment Spec In Lab Jyothi Judge MD CHEMISTRY ORDERABL ES [facility] documented in this encounter Visit Diagnoses Diagnosis High risk medication use Encounter for long-term (current) use of other medications Pericarditis Unspecified disease of pericardium documented in this encounter Care Teams Resistor Testing Machine Operator Relationship Specialty Start Date End Date Radha Mckeon MD [address] [place] [address] PCP - General 09/23/10 documented as of this encounter
--- OUTSIDE RECORDS SUMMARY | 2024-07-24 17:31 | XMS_ITS | Encounter Summary ---
Author Organization [facility] [place] [address] Care Team Providers Care Regional Liaison Name Role Phone Radha Mckeon MD Primary Care Provider [phone] Reason for Referral * Diagnostic Test (Routine) - Closed Specialty Diagnoses / Procedures Referred By Becki guillory Referred To Contact Cardiology Diagnoses SVT (supraventricular tachycardia) Procedures Echocardiogram Transthoracic(Leb) Diogo Robb PA [facility] [place] [address] [facility] [place] [address] Referral ID Status Reason Start Date Expiration Date V isits Requested Visits Authorized [id number] Closed Specialty Service Requested 04/13/2016 04/13/2017 1 1 Encounter Details Date Type Department Care Team (Latest Contact Info) Description 04/02/2016 3:00 PM EDT Office Visit Cardiology at [address] [address] Diogo Robb PA [facility] [place] [address] Acute pleuropericarditis s/p atrial fibrillation ablation; Atrial fibrillation, unspecified type; Essential hypertension, hypertension with unspecified goal; SVT (supraventricular tachycardia) Social History Tobacco Use Types Packs/Day Years [...] Sign Reading Time Taken Comments Blood Pressure 130/78 04/02/2016 3:12 PM EDT Pulse 62 04/02/2016 3:12 PM EDT Temperature - - Respiratory Rate - - Oxygen Saturation 98% 04/02/2016 3:1 2 PM EDT on room air Inhaled Oxygen Concentration - - Weight 83.3 kg (183 lb 11.2 oz) 04/02/2016 3:12 PM EDT Height 182.9 cm (6') 04/02/2016 3:12 PM EDT Body Mass Index 24.91 04/02/2016 3:12 PM EDT documented in this encounter Progress Notes * Diogo Robb PA - 04/02/2016 4:53 PM EDT Subjective: Patient ID: Malik Machado is a 65 y.o. male. HPI 65yo man with hx PAF, insufficiently controlled with antiarrythmics, s/p PVI(12/2012) complicated bypericarditis, now with recurrent intermittent palpitations. 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 He continues on toprol 150mg daily in an effort to suppress premature beats. Beta blockade was initially used with caution as he had a trend to bradycardia and a RBBB with LAHB. EKG and ambulatory monitoring have not demonstrated worsening bradycardia or changes in intervals. Patient Active Problem List Diagnosis Code ??? [...] - chronic D69.6 Review of Systems Constitutional: Positive for fatigue. Negative for chills, diaphoresis and fever. Respiratory: Negative for cough, chest tightness and shortness of breath. Cardiovascular: Positive for palpitations. Negative for chest pain and leg swelling. Gastrointestinal: Negative for diarrhea, nausea and vomiting. Genitourinary: Negative for dysuria, frequency and hematuria. Neurological: Negative for syncope and speech difficulty. History Substance Use Topics ??? Smoking status: Former Smoker Packs/day: 2.00 Years: 16.00 Types: Cigarettes Quit date: 08/13/1983 ??? Smokeless tobacco: Never Used ??? Alcohol use: No Current Outpatient Prescriptions Medication Sig Note Dispense Refill ??? omeprazole (PRILOSEC) 40 mg Capsule, Delayed Release(E.C.) Take 40 mg by mouth daily. 04/02/2016:Received from: External Pharmacy Received Sig: ??? ranitidine (ZANTAC) 150 mg Tablet Take 150 mg by mouth nightly. 04/02/2016: Received from: External Pharmacy Received Sig: ??? SUMAtriptan (IMITREX) 20 mg/actuation Hubbard, Non-Aerosol 1 spray by Nasal route as needed. For migraines 04/02/2016: Received from: External Pharmacy Received Sig: ??? valACYclovir (VALTREX) 500 mg Tablet Take 500 mg by mouth daily. 04/02/2016: Received from: External Pharmacy Received Sig: ??? meTOPROLOL succinate (TOPROL-XL) 100 mg Tablet Sustained Release 24 hr Take 1 tablet by mouth daily. 45 tablet 11 ??? oxyCODONE (ROXICODONE) 15 mg Tablet Take 15 mg by mouth every 4 hours as needed for Pain. ??? MULTIVITAMIN W-MINERALS/LUTEIN (CENTRUM SILVER ORAL) Take 1 tablet by mouth. ??? Gravette-3 Fatty Acids-Vitamin E (FISH OIL) 1,000 mg [...] hs prn ??? glucosamine-chondroitin 500-400 mg tablet ??? verapamil (CALAN-SR) 120 mg Tablet Sustained Release Take 1 tablet by mouth nightly. 3 Objective: Physical Exam Constitutional: He is oriented [...] Nursing note and vitals reviewed. 12 lead EK04/02/2016 Normal sinus rhythm @ 60; IN 154; QRS 146; QTc 442ms Zio: 09/14/2014 14 day, mean HR 69 [...] diary events were associated with sinus rhythm. Echocardiogram: 02/02/2013 1. The quantitative left ventricular ejection fraction by biplane Herrera's method is 64%. There are no left ventricular segmental wall motion abnormalities. Left sided filling pressure could not be assessed by Doppler. Right ventricular chamber size, wall thickness, and systolic function are within normal limits. 2. The right atrium is mildly dilated. 3. The aortic valve is probably tricuspid but the aortic valve is not well visualized. Mild (1+/4+) aortic valve regurgitation, mild (1+/4+) mitral regurgitation, mild (1+/4+) tricuspid regurgitation, and mild (1+/4+) pulmonic regurgitation is present. 4. The pericardium appears normal and there is no evidence of a pericardial effusion. The estimated pulmonary artery systolic pressure is 26 mmHg. ?? Assessment and Plan: 65yo man with hx PAF, s/p afib ablation, well controlled on metoprolol 150mg daily however now withincreasingly frequent episodes of sensation of tachycardia. EKG, holter and Zio patch monitoring have not demonstrated recurrent atrial fibrillation. There are symptomatic episodes associated with sinus, sinus with premature beats and brief SVT @ 167bpm lasting up to about a minute duration. We discussed possible etiologies of his symptoms and provocative issues(he reports he is under considerable personal stress - his is ill and he is raising grandchildren). He has persistently reported fatigue of unclear etiology. I am concerned that he would be more fatigued on increased doses of metoprolol. Therefore, we will try reducing metoprolol from 150mg daily to 100mg daily and adding long acting verapamil 120mg once daily. I will order a follow up echocardiogram to assess for current LVEF, valvular function and atrial dimensions. EP clinic follow up in three months with 12 lead EKG. Provider: ANDREE Shelley Provider#: [id number] Consult attending physician: Cynthia Byrd MD documented in this encounter Plan of Treatment Upcoming Encounters Date Type Department Care Team (Late st Contact Info) Description 08/18/2024 11:00 AM EDT Hospital Encounter Non-[place] [phone] Arrived 02/22/2025 1:30 PM EDT Appointment Hematology [place] [phone] 02/22/2025 2:30 PM EDT Office Visit Hematology [place] [address] Ellis Childers MD [facility] [address] [place] [address] Felicita Landa APRN [facility] HEMATOLOGY AND ONCOLOGY [place], [place] [phone] documented as of this encounter Procedures Procedure Name Priority Date/Time Associated Diagnosis Comments EKG 12-LEAD Routine 04/02/2016 3:29 PM EDT Acute pleuropericarditis s/p atrial fibrillation ablation Atrial fibrillation, unspecified type Essential hypertension, hypertension with unspecified goal documented in this encounter Results * ECHO COMPLETE (04/30/2016 10:25 AM EDT) EF 64 HEARTLAB SYSTEM Anatomical Region Laterality Modality Other 04/30/2016 Narrative 04/30/2016 10:39 AM EDT Procedure: ?Transthoracic Echocardiogram Patient: ?MILY Guillory ?(Age): 1950(65y) Med Rec#: ? [id number] ?Sex: ?M ? Site Loc: ? [facility] ?Ht / Wt: ??183(cm)/84(kg) Pt. Loc: ?Echo Lab ?BSA: ?2.06 Study Date: ?? 04/30/2016 ?Pt. Type: Outpatient Tape: ? Referring: Sanford Byrd Reading: Jesse Tristan ([id number]) Special Distribution Clerk: Dania Dorado [facility] Diagnosis: *ICD-10-PCS Supraventricular tachycardia (I47.1) *SVT (427.0) CPT Codes: *Echo Full (76155) *Spectral Doppler (55944) *Color Doppler (51972) Indication: ?? SVT Rhythm: ? Sinus BP: [...] E-wave Vmax ?0.7 ?m/sec ? MV deceleration mrqn987.6 ?msec ? MV A-wave Vmax ?0.5 ?m/sec [...] ? Pulmonic Valve/Qp:Qs ?Value ?Units (Range) ? IN end-diastolic Vma1.1 ?m/sec ? PA end-diastolic pre7.8 [...] ? Mid-Inferior ?Normal ? Mid-Inferoseptal ?Normal ? Ruth-Septal ? Normal ? Ruth-Anterior ? Normal ? Ruth-Lateral ?Normal ? Ruth-Inferior ? Normal ? Ruth-Tip ?Normal ? This report has been electronically signed by: Jesse Tristan M.D. ? 04/30/2016 10:39:25 Images reviewed and interpretation verified [facility] Cardiac Ultrasound Laboratory Procedure Note Jesse Tristan MD - 04/30/2016 Procedure: Transthoracic Echocardiogram Patient: MILY CLINTON(Age): 1950(65y) Med Rec#: [id number] Sex: M Site Loc: [facility] Ht / Wt: 183(cm)/84(kg) Pt. Loc: Echo Lab BSA: 2.06 Study Date: 04/30/2016 Pt. Type: Outpatient Tape: Referring: Sanford Byrd Reading: Jesse Tristan ([id number]) Special Distribution Clerk: Dania Dorado [facility] Diagnosis: *ICD-10-PCS Supraventricular tachycardia (I47.1) *SVT (427.0) CPT Codes: *Echo Full (29560) *Spectral Doppler (00872) *Color Doppler (62264) Indication: SVT Rhythm: Sinus BP: 148/97 HR: [...] MV E-wave Vmax 0.7 m/sec MV deceleration edlt798.6 msec MV A-wave Vmax 0.5 m/sec MV [...] 22.4 mmHg Pulmonic Valve/Qp:Qs Value Units (Range) IN end-diastolic Vma1.1 m/sec PA end-diastolic pre7.8 mmHg Measurement Trending Name 04/30/2016 LV EDV BP 157.22 LVIDd (2D) 5.23 LV ESV BP 56.9 LVIDs (2D) 3.9 Wall Motion: Segment Name Rest Base-Anteroseptal Normal Base-Anterior Normal Base-Anterolateral Normal Base-Posterolateral Normal Base-Inferior Normal Base-Inferoseptal Normal Mid-Anteroseptal Normal Mid-Anterior Normal Mid-Anterolateral Normal Mid-Posterolateral Normal Mid-Inferior Normal Mid-Inferoseptal Normal Ruth-Septal Normal Ruth-Anterior Normal Ruth-Lateral Normal Ruth-Inferior Normal Ruth-Tip Normal This report has been electronically signed by: Jesse Tristan M.D. 04/30/2016 10:39:25 Images reviewed and interpretation verified [facility] Cardiac Ultrasound Laboratory Sanford Byrd MD ECHO ORDERABLES * EKG 12 Lead (04/02/2016 3:29 PM EDT) Ventricular rate 60 BPM MUSE SYSTEM Atrial Rate 60 BPM MUSE SYSTEM P-R Interval 154 ms MUSE SYSTEM QRS Duration 146 ms MUSE SYSTEM Q-T Interval 442 ms MUSE SYSTEM QTC Calculated (Bezet) 442 ms MUSE SYSTEM Calculated P [place] 50 degrees MUSE SYSTEM Calculated R [place] -66 degrees MUSE SYSTEM Calculated T [place] 8 degrees MUSE SYSTEM INTERPRETATION Normal sinus rhythm Right bundle branch block Left anterior fascicular block Bifascicular block Abnormal ECG When compared with ECG of 18-DEC-2014 11:35, No significant change was found Confirmed by MD MILTON, CATRACHO ([id number]) on 04/03/2016 2:22:24 PM MUSE SYSTEM 04/02/2016 3:29 PM EDT 04/03/2016 2:22 PM EDT Omar Corcoran MD ECG ORDERABLES MUSE SYSTEM documented in this encounter Visit Diagnoses Diagnosis Acute pleuropericarditis s/p atrial fibrillation ablation Acute pericarditis, unspecified Atrial fibrillation, unspecified type Essential hypertension, hypertension with unspecified goal SVT (supraventricular tachycardia) Other specified cardiac dysrhythmias SVT (supraventricular tachycardia) Other specified cardiac dysrhythmias documented in this encounter Care Teams Regional Liaison Relationship Specialty Start Date End Date Radha Mckeon MD [address] [place] [address] PCP - General 09/23/10 documented as of this encounter
--- OUTSIDE RECORDS SUMMARY | 2024-07-24 17:31 | XMS_ITS | Encounter Summary ---
Author Organization [facility] [place] [address] Care Team Providers Care Parts Driver Name Role Phone Radha Mckeon MD Primary Care Provider [phone] Reason for Referral * Physical Therapy (Routine) - Complete - Patient Will Schedule External Appt Specialty Diagnoses / Procedures Referred By Becki guillory Referred To Contact Physical Therapy Diagnoses S/P knee replacement Gene Kong PA [facility] [place] [address] Referral ID Status Reason Start Date Expiration Date Visits Requested Visits Authorized [id number] Complete - Patient Will Schedule External Appt Evaluate and Treat 02/02/2013 08/01/2013 1 1 Reason for Visit * Reason Comments Aftercare Of Tjr SP R TKA DOS 01/15/20 10 Encounter Details Date Type Department Care Team (Late st Contact Info) Description 02/02/2013 11:00 AM EDT [place] [address] Gene Kong PA [facility] [place] [address] S/P knee replacement (Primary Dx) Discharge Disposition: Home Social History Tobacco Use [...] Sign Reading Time Taken Comments Blood Pressure 150/83 02/02/2013 11:21 AM EDT Pulse 62 02/02/2013 11:21 AM EDT Temperature - - Respiratory Rate - - Oxygen Saturation - - Inhaled Oxygen Concentration - - Weight 86.5 kg (190 lb 12.8 oz) 013 11:21 AM EDT Height 182.9 cm (6') 02/02/2013 11:21 AM EDT Body Mass Index 25.88 02/02/2013 11:21 AM EDT documented in this encounter Patient Instructions * Patient Instructions* Gene Kong PA - 02/02/2013 11:53 AM EDT -activities as tolerated with exception of running (axial loading) -infection awareness -continue stretching and strengthening -antibiotic prior to dental work documented in this encounter Progress Notes * Gene Kong PA - 02/03/2013 8:23 AM EDT SURGERY DATE: 01/14/2010 MICHAEL CHAVEZ MD PROCEDURE [...] 5. Half batch of quick set cement. HPI: Mr Machado returns 3 years from his knee replacement. He remains frustrated by pain, more so lately without injury or change in activity. He also struggles with chronic low back pain. There is no knee swelling. The pain tends to be to the anterior knee. ROM and stability are not limiting. He has been struggling with pericarditis recently and has had a cardiac procedure to alleviate the symptoms. He denies fevers or chills. No SOB or chest pain. 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 Physical Exam: 62 yo male ambulatory without assist or antalgia; flexed knee gait. When supine his leg lengths are equal. Calves soft and nontender without edema. He is able to straight leg raise without lag. The right knee shows no effusion. ROM from 0-117; full extension provokes posterior discomfort to the hamstrings. No increased pain or laxity with varus and valgus stress. No pain with ROM of the hip joint. Some increased discomfort with resisted knee extension. X-rays: Right total knee arthroplasty is unchanged in appearance. No new periprosthetic lucency or evidence of fracture. No soft tissue calcifications or joint effusion identified. Bone mineralization is normal. Assessment: S/P Right TKA Plan: I see no complication in the knee; he seems to have quad tendinitis. He had some labwork recently showing marked elevation of inflammatory markers. He is having that repeated today. I gave him a PT referral to work on the quads. If the labwork is still elevated, given his increased pain we'llneed to aspirate the knee. documented in this encounter Plan of Treatment Upcoming Encounters Date Type Department Care Team (Late st Contact Info) Description 08/18/2024 11:00 AM EDT Hospital Encounter Non-[place] [address] Arrived 02/22/2025 1:30 PM EDT Appointment [place]ology [place] [address] 02/22/2025 2:30 PM EDT Office Visit [place]ology [place] [address] Ellis Childers MD [facility] DR H[place]AT[place] [address] Felicita Landa APRN [facility] [place] [address] Scheduled Referrals Name Type Priority Associated Diagnoses Orde r Schedule Referral to Physical Therapy Outpatient Referral Routine S/P knee replacement Ordered: 02/02/2013 documented as of this encounter Results * Sedimentation rate (02/02/2013 12:47 PM EDT) Sedimentation Rate Automated 12 0 - 15 mm/hr [email or web address] Blood specimen (specimen) 02/02/2013 12:47 PM EDT 02/02/2013 12:54 PM EDT Narrative Resulting Agency Comment Spec In Lab Peewee Bella MD HEMATOLOGY ORDERABLE S [employer] * High Sensitivity CRP (02/02/2013 12:47 PM EDT) C-Reactive Protein High Sensitivity 0.8 mg/L [email or web address] Comment: Interpretations: 1) For cardiac risk assessment, [...] Inflammation and Cardiovascular Disease. ??Circulation 2003; 107:499-511 Ridker PM. ??Clinical applications of C-reactive protein for cardiovascular disease detection and prevention. ??Circulation 2003; 107:363-369 Blood specimen (specimen) 02/02/2013 12:47 PM EDT 02/02/2013 12:54 PM EDT Narrative Resulting Agency Comment Spec In Lab Peewee Bella MD CHEMISTRY ORDERABLES Performing Organization Address City/State/ZIP Co in Phone Number [facility] documented in this encounter Visit Diagnoses Diagnosis S/P knee replacement- Primary Knee joint replacement by other means documented in this encounter Care Teams Parts Driver Relationship Specialty Start Date End Date Radha Mckeon MD [address] [place] [address] PCP - General 09/23/10 documented as of this encounter
--- OUTSIDE RECORDS SUMMARY | 2024-07-24 17:31 | XMS_ITS | Encounter Summary ---
Author Organization [facility] [place] [address] Care Team Providers Care Concrete Pile Driver Operator Name Role Phone Radha Mckeon MD Primary Care Provider [phone] Reason for Referral * Physical Therapy (Routine) - Complete - Patient Will Schedule External Appt Specialty Diagnoses / Procedures Referred By Becki guillory Referred To Contact Physical Therapy Diagnoses Status post total knee replacement Peewee Bella MD [facility] [place] [address] Referral ID Status Reason Start Date Expiration Date Visits Requested Visits Authorized [id number] Complete - Patient Will Schedule External Appt Evaluate and Treat 02/28/2013 08/27/2013 1 1 Encounter Details Date Type Department Care Team (Late st Contact Info) Description 02/28/2013 Telephone [place] [address] Peewee Bella MD [facility] [place] [address] Social History Tobacco Use Types [...] Miscellaneous Notes * Telephone Encounter - Luiza Puente RN - 02/28/2013 3:12 PM EDT SP R TKA DOS 01/14/2010 Cleo a Physical Therapist from [facility]. called requesting that an order be sent for aquatic therapy. Referral faxed to # . documented in this encounter Plan of Treatment Upcoming Encounters Date Type Department Care Team (Late st Contact Info) Description 08/18/2024 11:00 AM EDT Hospital Encounter Non-Invasive [place] [address] Arrived 02/22/2025 1:30 PM EDT Appointment Hematology and Oncology at [place] [address] 02/22/2025 2:30 PM EDT Office Visit Hematology and Oncology at [place] [phone] Ellis Childers MD [facility] DR [place] [address] Felicita Landa APRN [facility] [address] [place] [address] Scheduled Referrals Name Type Priority Associated Diagnoses Orde r Schedule Referral to Physical Therapy Outpatient Referral Routine Status post total knee replacement Ordered: 02/28/2013 documented as of this encounter Visit Diagnoses Diagnosis Status post total knee replacement- Primary Knee joint replacement by other means documented in this encounter Care Teams Concrete Pile Driver Operator Relationship Specialty Start Date End Date Radha Mckeon MD [address] [place] [address] PCP - General 09/23/10 documented as of this encounter
--- OUTSIDE RECORDS SUMMARY | 2024-07-24 17:31 | XMS_ITS | Encounter Summary ---
Author Organization [facility] [address] Care Team Providers Care Light Technician Name Role Phone Radha Mckeon MD Primary Care Provider [phone] Encounter Details Date Type Department Care Team (Latest Contact Info) Description 09/18/2013 10:56 AM EST - 09/18/2013 11:59 PM [facility] Hospital Encounter [place] [phone] CLINIC, Ganga Huynh MD [facility] DR [place] [address] Knee pain Discharge Disposition: Home Social History Tobacco [...] AM EDT Hospital Encounter Non-[place]vasive [place] [address] Arrived 02/22/2025 1:30 PM EDT Appointment Hematology [place] [phone] 02/22/2025 2:30 PM EDT Office Visit Hematology and Oncology at [place] [phone] Ellis Childers MD [facility] DR HEMATOLOGY [place] [address] Felicita Landa APRN [facility] DR HEMATOLOGY [place] [address] Pending Results Name Type Priority Associated Diagnoses Date /Time NM bone flow and blood pool-nmflowbp Imaging Routine 09/18/2013 11:24 AM EST documented as of this encounter Visit Diagnoses Diagnosis Knee pain Pain in joint, lower leg documented in this encounter Care Teams Light Technician Relationship Specialty Start Date End Date Radha Mckeon MD [address] [place] [address] PCP - General 09/23/10 documented as of this encounter
--- OUTSIDE RECORDS SUMMARY | 2024-07-24 17:31 | XMS_ITS | Encounter Summary ---
Author Organization [facility] [place] [facility] [place] [address] Care Team Providers Care Physician Neonatology Name Role Phone Radha Mckeon MD Primary Care Provider [phone] Encounter Details Date Type Department Care Team (Late st Contact Info) Description 08/26/2016 [place] [address] Sami Waldron MD [facility] [place] [address] Social History Tobacco Use Types Packs/Day Years [...] encounter Miscellaneous Notes * Telephone Encounter - Sami Waldron MD - 08/26/2016 11:36 PM EDT 66 male with PAF s/p PVI ablation in 2012 maintained on 100 of toprol and 120 of verapamil. This evening after attending community class noticed palpitations HR in 120s and irregular. Came to ER found to be in AF with RBBB and LAFB (known), now seems controlled on its own (90s with occasional rate upto 120). BP 160/100, HR 90s No CHF on exam Labs: K 4.1, H/H 18/53 (appeared dry got IVFs), Cr 1.0 Trop normal CXR: no CHF Plan: Suggested to increase metop to 100 with 120 of verapamil. I will forward the note to Diogo Robb for further plan (as ER MD mentioned that patient has had medications changes in recent past). Potentially can consider DCCV in AM if beds available. Sami Waldron MD Hydro Generation Manager Pager # [phone] documented in this encounter Plan of Treatment Upcoming Encounters Date Type Department Care Team (Late st Contact Info) Description 08/18/2024 11:00 AM EDT Hospital Encounter Non-Invasive Cardiology Lab [place] [phone] Arrived 02/22/2025 1:30 PM EDT Appointment Hematology and Oncology at [place] [address] 02/22/2025 2:30 PM EDT Office Visit Hematology [place] [address] Ellis Childers MD [facility] DR [place] [address] Felicita Landa APRN [facility] DR [place] [address] documented as of this encounter Visit Diagnoses Not on filedocumented in this encounter Care Teams Physician Neonatology Relationship Specialty Start Date End Date Radha Mckeon MD [address] [place] [address] PCP - General 09/23/10 documented as of this encounter
--- OUTSIDE RECORDS SUMMARY | 2024-07-24 17:31 | XMS_ITS | Encounter Summary ---
Author Organization [facility] [place] [address] Care Team Providers Care Radar Mechanic Name Role Phone Radha Mckeon MD Primary Care Provider [phone] Reason for Visit * Reason Comments [facility] SP R TKA DOS 01/15/20 10 Encounter Details Date Type Department Care Team (Late st Contact Info) Description 09/07/2013 2:30 PM EST Office [place] [address] Ganga Mi MD [facility] [place] [address] Umang Pulido MD [facility] [place] [address] Knee pain (Primary Dx) Discharge Disposition: Home Social History [...] Sign Reading Time Taken Comments Blood Pressure 123/81 09/07/2013 2:48 PM EST Pulse 77 09/07/2013 2:48 PM EST Temperature - - Respiratory Rate - - Oxygen Saturation - - Inhaled Oxygen Concentration - - Weight 86.7 kg (191 lb 3.2 oz) 09/07/2013 2:48 P M EST Height 182.9 cm (6') 09/07/2013 2:48 PM EST STAT ED Body Mass Index 25.93 09/07/2013 2:48 PM EST documented in this encounter Progress Notes * Ganga Mi - 09/22/2013 3:11 PM EST September 22, 2013 Malik Machado RE: Malik Mills#: [id number] Dear Mr. Machado: Your bone scan is very nicely within normal limits. In fact, the images that we are getting are virtually comparable to our other knee which is not even an artificial replacement. So, I think that the likelihood of an infection or any major disturbance in the surrounding soft tissue has virtually been ruled out. This of course does not make your pain go away, but at least we are not identifying something which have left untreated will get us into trouble. I think if you are still having these symptoms I would see you in the office myself again and we could go over the images and look at the next thing which we could possibly do, but at least at this point in time I am not identifying a specific problem nor a surgical solution. If I could provide any further information, please do not hesitate to contact me. Sincerely, Ganga Mi MD CC: Radha Mckeon MD * Ganga Mi - 09/19/2013 8:18 AM EST September 18, 2013 Malik Machado RE: Malik Mills#: [id number] Dear Mr. Machado: I am happy to say that your ultrasound failed to demonstrate any pathology in the form of either a tear or an inflammation of the tendon of the quadriceps. We are still awaiting the bone scan to rule out troublesome yet treatable issues associated with your knee. Once that is done, I will be getting in touch with you again, but if I can provide any further information, please do not hesitate to contact me. Sincerely, Ganga Mi M.D. CC: Radha Mckeon M.D. * Ganga Mi - 09/08/2013 8:24 AM EST I have seen the patient and reviewed the resident's above history and I agree with the details as written. The assessment and plan were formulated in discussion with me and I agree with them as documented. marlen * Umang Pulido - 09/07/2013 3:20 PM EST DATE OF SURGERY: 01/14/2010. SURGERY: Right total knee arthroplasty. INTERVAL HISTORY: Malik is a 63-year-old gentleman who reports that he continues to have anterior right knee pain. He feels that the internal pain of his right knee is much improved. However, even since the time of surgery and then especially recently, he has had continued anterior and peripatellar knee pain. He reports this really limits most of everything he does, but is much worse when he is going down stairs or is in any kind of maximum knee flexion. He is unable to return to his martial arts that he would like to. He denies any fevers or chills. When he was seen previously, he was in a bout of pericarditis with elevated inflammatory markers; however, repeat inflammatory markers were negative. He has been working with PT with the presumed diagnosis of a quad tendinitis, but he has really not progressed very much. He still notes continued weakness of that right leg. He does have a history of back disorder with multiple surgeries, but denies any numbness or tingling down the leg or shooting pain suggestive of radiculopathy. He is able to walk unassisted, but does report a significant limp. PHYSICAL EXAMINATION: Mr. Machado is otherwise healthy appearing 63-year-old, fit male. He is in no acute stress, alert and oriented x3. He does walk with a significantly antalgic gait when observed across the room. He keeps his knee slightly flexed in his stance. In evaluation of the knee, it is otherwise stable. With some difficulty, he can obtain just shy of full extension and approximately 90 to 95 degrees of flexion. However, at the extremes of motion, he is quite painful. Passively, he can bring about to full extension and in flexion only a few degrees past what he can do actively due to pain. He is stable to varus and valgus stress. Movement of the patella, once his quads is relaxed, does not really reproduce any of this pain. However, tenderness is palpable around the outside of the patella. In particular, he is exquisitely tender to the distal portion of the quad tendon right at its insertion to the patella. There appeared to be a palpable defect in the tendon representing a partial tear. He is able to straight leg raise. He does not have an appreciable extensor lag. He is weaker though on the right knee extension when compared to the left by significant amount. He also has some tenderness to palpation over the patellar ligament. IMAGING: Two views of the right knee were reviewed. These demonstrate otherwise a well-positioned implant. There is no apparent malpositioning, change in position, malalignment of fracture, or lucencies. ASSESSMENT: Mr. Machado is approximately three and half years status post right total knee arthroplasty. Unfortunately, he continues to have some anterior knee pain. At first, it was thought that this might be related to patellofemoral-type symptoms, but the manipulation of the kneecap itself did not seem to bring about the symptoms. However, he is point tender at the quad tendon insertion with a palpable central defect. 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 PLAN: In order to identify the true etiology here whether this is coming from the patellar component versus the quad tendon, we will obtain an ultrasound of the quad tendon to look for any particular tendon defects. In addition, we will plan to obtain a bone scan to look for any increased activity of the patella signifying possible lucency of the patellar component. This is reviewed with the patient. We will plan to call him back once we receive these results. Dr. Mi was the attending physician who was involved in the plan and management of this patient. I have made the following determinations: Post Op Right Knee Exam: Gait Abnormality: Antalgic Knee ROM: Extension:5 Flexion: 90 Alignment: 0-4 degrees Neutral Stability: A/P Translation <5mm. Varus (lateral stability)<5mm Valgus (medial stability) <5mm Extension La degrees or less Patella Tracking: Normal Pulses Palpable: Right PT: Yes Right DP:Yes Motor/Sensory: Distal Motor: Normal Distal Sensory: Normal Quadriceps Strength: 4 documented in this encounter Plan of Treatment Upcoming Encounters Date Type Department Care Team (Late st Contact Info) Description 08/18/2024 11:00 AM EDT Hospital Encounter [place] [address] Arrived 02/22/2025 1:30 PM EDT Appointment Hematology [place] [address] 02/22/2025 2:30 PM EDT Office Visit Hematology and Oncology at [place] [address] Ellis Childers MD [facility] DR HEMATOLOGY [place] [address] Felicita Landa APRN [facility] DR HEMATOLOGY [place] [address] documented as of this encounter Visit Diagnoses Diagnosis Knee pain- Primary Pain in joint, lower leg documented in this encounter Care Teams Radar Mechanic Relationship Specialty Start Date End Date Radha Mckeon MD [address] [place] [address] PCP - General 09/23/10 documented as of this encounter
--- OUTSIDE RECORDS SUMMARY | 2024-07-24 17:31 | XMS_ITS | Encounter Summary ---
Author Organization [facility] [place] [address] Care Team Providers Care Metal Wire Technician Name Role Phone Radha Mckeon MD Primary Care Provider [phone] Encounter Details Date Type Department Care Team (Late st Contact Info) Description 08/14/2013 Orders [place] [address] Ganga Mi MD [facility] [place] [address] Status post total knee replacement (Primary Dx) Social History Tobacco Use [...] AM EDT Hospital Encounter Non-Invasive [place] [address] Arrived 02/22/2025 1:30 PM EDT Appointment Hematology [place] [address] 02/22/2025 2:30 PM EDT Office Visit Hematology [place] [address] Ellis Childers MD [facility] [address] [place] [address] Felicita Landa APRN [facility] [place] [address] documented as of this encounter Results * [...] Primary Knee joint replacement by other means Status post total knee replacement Knee joint replacement by other means documented in this encounter Care Teams Metal Wire Technician Relationship Specialty Start Date End Date Radha Mckeon MD [address] [place] [address] PCP - General 09/23/10 documented as of this encounter
--- OUTSIDE RECORDS SUMMARY | 2024-07-24 17:31 | XMS_ITS | Encounter Summary ---
Author Organization [facility] [place] [address] Care Team Providers Care Solar Fabrication Technician Name Role Phone Radha Mckeon MD Primary Care Provider [phone] Reason for Visit * Reason Comments Shortness of Breath Encounter Details Date Type Department Care Team (Late st Contact Info) Description 02/02/2013 3:10 PM EDT Follow-Up Cardiology at [address] [address] Diogo Robb PA [facility] [place] [address] Atrial fibrillation (Primary Dx); A-fib Discharge Disposition: Home Social History Tobacco Use [...] Sign Reading Time Taken Comments Blood Pressure 137/82 02/02/2013 3:34 PM EDT Pulse 59 02/02/2013 3:34 PM EDT Temperature - - Respiratory Rate - - Oxygen Saturation - - Inhaled Oxygen Concentration - - Weight 87.1 kg (192 lb) 02/02/2013 3:34 PM EDT Height 182.9 cm (6') 02/02/2013 3:34 PM EDT Body Mass Index 26.04 02/02/2013 3:34 PM EDT documented in this encounter Patient Instructions * Patient Instructions* Diogo Robb PA - 02/06/2013 10:23 AM EDT Zio patch today Follow up with Dr. Byrd or Dr Judge in about one month. documented in this encounter Progress Notes * Diogo Robb PA - 02/05/2013 10:40 AM EDT Subjective: Patient ID: Ovidio Machado is a 62 y.o. male. HPI 62yo man with hx of recurrent, symptomatic atrial fibrillation insufficiently controlled with antiarrythmic therapy who underwent PVI on 12/12/2012. He was discharged from the hospital on 12/13/2012 and was re-admitted on 12/15 with chest pain and fever consistent with pericarditis(no effusion on echo). He was treated with NSAIDs and colchicine for pleuropericarditis with symptomatic improvement. Since then he has gradually improved, though continues to have periodic sensation of some irregularity in his heart rate. He last noticed this while performing a martial arts susan yesterday when he had sudden onset of a sharp pain that took his breath away and made him pause. This gradually resolved without specific intervention. He has had other episodes when he does not feel pain but rather has a sensation of his heart beating more rapidly or just feeling strange. This is different than the sensation he previously experienced that was associated with PAF. He denies pre-syncope or syncope. Patient Active Problem List Diagnoses Code ??? Chronic back pain greater than 3 months duration 724.5 ??? Knee pain 719.46 ??? Lumbar radiculopathy 724.4 ??? A-fib 427.31 ??? Hypertension 401.9 ??? 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 S/P knee replacement V43.65 ??? Acute pleuropericarditis s/p atrial fibrillation ablation 420.90 ??? Odynophagia s/p Atrial fibrillation and ELOY 787.20 ??? Thrombocytopenia - chronic 287.5 Review of Systems Constitutional: Positive for fatigue. Negative for fever, chills and diaphoresis. Respiratory: Positive for chest tightness and shortness of breath. Negative for apnea, cough, choking, wheezing and stridor. Cardiovascular: Positive for palpitations. Negative for chest pain and leg swelling. Genitourinary: Negative for dysuria. Neurological: Negative for dizziness, syncope and weakness. History Social History ??? Marital Status: Single Spouse Name: N/A Number of Children: N/A ??? Years of Education: N/A Occupational History ??? Not on file. Social History Main Topics ??? Smoking status: Former Smoker Quit date: 08/13/1983 ??? Smokeless tobacco: Never Used ??? Alcohol Use: No ??? Drug Use: No ??? Sexually Active: Yes Other Topics Concern ??? Not on file Social History Narrative ??? No narrative on file Medications: Current outpatient prescriptions:aspirin 81 mg EC tablet, Take 1 tablet by mouth daily for 90 days., Disp: 90 tablet, Rfl: 0; warfarin (COUMADIN) 1 mg tablet, Take 2 mg daily for 3 days then return to 1 mg daily dose, Disp: 6 tablet, Rfl: 0; MULTIVITAMIN W-MINERALS/LUTEIN (CENTRUM SILVER ORAL), Take by mouth. , Disp: , Rfl: ; [place]-3 Fatty Acids-Vitamin E (FISH OIL) 1,000 mg Cap, Take 1,000 mg by mouth 2 times daily., Disp: , Rfl: acetaminophen (TYLENOL) 500 mg tablet, Take 1,000 mg by mouth every 6 hours as needed. Indications:Headache Disorder, Pain, Disp: , Rfl: ; baclofen (LIORESAL) 10 mg tablet, Take 10 mg by mouth daily., Disp: , Rfl: ; methadone (DOLOPHINE) 10 mg tablet, Take 10 mg by mouth 2 times daily., Disp: , Rfl: ; metoprolol succinate (TOPROL-XL) 50 mg 24 hr tablet, Take 50 mg by mouth daily., Disp: , Rfl: OXYcodone-acetaminophen (PERCOCET) 5-325 mg per tablet, Take 1 tablet by mouth every 4 hours as needed., Disp: , Rfl: ; simvastatin (ZOCOR) 10 mg tablet, Take 10 mg by mouth nightly., Disp: , Rfl: ; SUMAtriptan (IMITREX) 100 mg tablet, Take 100 mg by mouth as needed., Disp: , Rfl: ; zolpidem (AMBIEN) 5 mg tablet, Take 5 mg by mouth nightly as needed. 1 to 2 tabs hs prn, Disp: , Rfl: ; glucosamine-chondroitin 500-400 mg tablet, , Disp: , Rfl: Objective: Physical Exam Vitals reviewed. Constitutional: He is oriented to person, place, and time. No distress. Neck: No JVD present. Cardiovascular: Normal rate, regular rhythm and normal heart sounds. Exam reveals no friction rub. No murmur heard. Pulmonary/Chest: Effort normal and breath sounds normal. No respiratory distress. He has no wheezes. He has no rales. He exhibits no tenderness. Abdominal: Soft. He exhibits no distension. There is no tenderness. Musculoskeletal: Normal range of motion. He exhibits no edema. Neurological: He is alert and oriented to person, place, and time. Skin: Skin is warm and dry. He is not diaphoretic. Echo: 02/02/2013 1. The quantitative left ventricular ejection [...] pulmonary artery systolic pressure is 26 mmHg. 12 lead EK02/02/2013 Sinus rhythm @ 57; HI 148; QRS 134, QTc 324ms Assessment and Plan: 62yo man with PAF, insufficiently controlled with antiarrythmics, now s/p recent PVI complicated bypericarditis(no effusion by echo). He reports periodic sensation of irregular or faster heart rate that has not yet been qualified. Heis anticoagulated on coumadin. This sensation may be related to arrythmia or pericarditis or both. He feels as though he is gradually improving but does not feel nearly as well as he would like. We discussed possible etiologies for this and reinforced the fact that this is still relatively early post procedure(12/12/2012) and that recovery can include transient arrythmia. Will issues Zio patch for surveillance of possible arrythmia and instructions to keep a log of symptoms. If he feels as though the symptoms worsen or sensation of arrythmia becomes persistent, he will call for follow up sooner. Plan follow up in one month with Dr. Byrd or Dr. Judge. Provider: ANDREE Shelley Provider#: [id number] Consult attending physician: Nioc Corcoran MD documented in this encounter Plan of Treatment Upcoming Encounters Date Type Department Care Team (Late st Contact Info) Description 08/18/2024 11:00 AM EDT Hospital Encounter Non-Invasive Cardiology Lab [address] Arrived 02/22/2025 1:30 PM EDT Appointment [place]ematology [place] [address] 02/22/2025 2:30 PM EDT Office Visit Hematology and Oncology at [address] Ellis Childers MD [facility] [address] [place] [address] Felciita Landa APRN [facility] [address] [place] [address] documented as of this encounter Procedures Procedure Name Priority Date/Time Associated Diagnosis Comments EKG 12-LEAD Routine 02/02/2013 3:36 PM EDT Atrial fibrillation documented in this encounter Results * EKG 12 Lead (02/02/2013 3:36 PM EDT) Ventricular rate 57 BPM MUSE SYSTEM Atrial Rate 57 BPM MUSE SYSTEM P-R Interval 148 ms MUSE SYSTEM QRS Duration 134 ms MUSE SYSTEM Q-T Interval 436 ms MUSE SYSTEM QTC Calculated (Bezet) 424 ms MUSE SYSTEM Calculated P [place] 29 degrees MUSE SYSTEM Calculated R [place] -53 degrees MUSE SYSTEM Calculated T [place] 2 degrees MUSE SYSTEM INTERPRETATION Sinus bradycardia Right bundle branch block Left anterior fascicular block Bifascicular block Abnormal ECG When compared with ECG of 15-DEC-2012 01:51, No significant change was found Confirmed by MD BARRERA, OVIDIO ([id number]) on 02/03/2013 2:02:38 PM MUSE SYSTEM 02/02/2013 3:36 PM EDT 02/03/2013 2:02 PM EDT Omar Corcoran MD ECG ORDERABLES MUSE SYSTEM documented in this encounter Visit Diagnoses Diagnosis Atrial fibrillation- Primary A-fib Atrial fibrillation documented in this encounter Care Teams Solar Fabrication Technician Relationship Specialty Start Date End Date Radha Mckeon MD [address] [place] [address] PCP - General 09/23/10 documented as of this encounter
--- OUTSIDE RECORDS SUMMARY | 2024-07-24 17:31 | XMS_ITS | Encounter Summary ---
[place] [address] Care Team Providers Care Residential Sales Name Role Phone Radha Mckeon MD Primary Care Provider Encounter Details Date Type Department Care Team (Late st Contact Info) Description 06/25/2015 Telephone [place] [address] Sharona Martin LPN Social History Tobacco Use Types Packs/Day Years [...] encounter Miscellaneous Notes * Telephone Encounter - Sharona Morris LPN - 06/25/2015 5:11 PM EDT Return call to patient. Left message advising him I would send Dr. Royal's progress note to himtomorrow. The note gives recommendations for post-op surgery. If he had any concerns to call the Pain Clinic tomorrow. Notes placed in mail on 06/25/15. * Telephone Encounter - Sharona Morris LPN - 06/25/2015 5:08 PM EDT Patient left message advising he will be having his surgery in [place] and Dr. Royal would like to be involved with his post-op care. (confirmed with Dr. Andres progress note 11/15/14) He request call back to discuss options. documented in this encounter Plan of Treatment Upcoming Encounters Date Type Department Care Team (Late st Contact Info) Description 08/18/2024 11:00 AM EDT Hospital Encounter Non-[place] [address] Arrived 02/22/2025 1:30 PM EDT Appointment Hematology and Oncology at [place] [address] 02/22/2025 2:30 PM EDT Office Visit Hematology and Oncology at [place] [address] Ellis Childers MD [facility] [address] [place] [address] Felicita Landa APRN [facility] [address] [place] [address] documented as of this encounter Visit Diagnoses Not on filedocumented in this encounter Care Teams Residential Sales Relationship Specialty Start Date End Date Radha Mckeon MD [address] [place] [address] PCP - General 09/23/10 documented as of this encounter
--- OUTSIDE RECORDS SUMMARY | 2024-07-24 17:31 | XMS_ITS | Encounter Summary ---
Author Organization [facility] Address [facility] [place] [address] Care Team Providers Care Tailor Helper Name Role Phone Radha Mckeon MD Primary Care Provider [phone] Encounter Details Date Type Department Care Team (Late st Contact Info) Description 09/18/2013 10:00 AM EST - 09/18/2013 10:57 AM [facility] Hospital Encounter XRay at [address] [place] [address] Knee pain Social History Tobacco Use Types Packs/Day [...] AM EDT Hospital Encounter Non-[place] [address] Arrived 02/22/2025 1:30 PM EDT Appointment Hematology [place] [address] 02/22/2025 2:30 PM EDT Office Visit Hematology [place] [address] Ellis Childers MD [facility] [address] [place] [address] Felicita Landa APRN [facility] [address] [place] [address] documented as of this encounter Procedures Procedure Name Priority Date/Time Associated Diagnosis Comments XR LIMITED ULTRASOUND OF KNEE Routine 09/18/2013 10:55 AM EST Pain in joint, lower leg documented in this encounter Results * XR Limited Ultrasound of Knee (09/18/2013 10:55 AM EST) Anatomical Region Laterality Modality N/A Radiographic Nano ging 09/18/2013 10:5 5 AM EST Narrative 09/18/2013 11:48 AM EST Examination LIMITED ULTRASOUND OF KNEE/RIGHT Clinical History question quad and patellar tendon tear - righ tknee Technique The extensor tendon of the right knee were examined using a high frequency transducer. ?? Comparison None Findings Intact quadriceps and patellar tendon without mackenzie tendinous fluid. ??The echo pattern is of the tendons is normal. Procedure Note Sierra Isidro MD - 09/18/2013 Examination LIMITED ULTRASOUND OF KNEE/RIGHT Clinical History question quad and patellar tendon tear - righ tknee Technique The extensor tendon of the right knee were examined using a high frequency transducer. Comparison None Findings Intact quadriceps and patellar tendon without mackenzie tendinous fluid. Theecho pattern is of the tendons is normal. Ganga Mi MD IMG DX ORDERABLES documented in this encounter Visit Diagnoses Diagnosis Knee pain Pain in joint, lower leg documented in this encounter Care Teams Tailor Helper Relationship Specialty Start Date End Date Radha Mckeon MD [address] [place] [address] PCP - General 09/23/10 documented as of this encounter
--- OUTSIDE RECORDS SUMMARY | 2024-07-24 17:31 | XMS_ITS | Encounter Summary ---
Author Organization [place] [address] Care Team Providers Care Toe Lining Closer Name Role Phone Radha Mckeon MD Primary Care Provider [phone] Encounter Details Date Type Department Care Team (Late st Contact Info) Description 02/02/2013 1:15 PM EDT [place] [address] Saurabh Royal MD [facility] [place] [place] [address] Lumbar radiculopathy (Primary Dx) Discharge Disposition: Home Social History [...] Time Taken Comments Blood Pressure 137/82 02/02/2013 2:18 PM EDT Pulse 59 02/02/2013 2:18 PM EDT Temperature 36.8 ??C (98.3 ??F) 02/02/2013 2:18 PM ED T Respiratory Rate 16 02/02/2013 2:18 PM EDT Oxygen Saturation 97% 02/02/2013 2:18 PM EDT Inhaled Oxygen Concentration - - Weight 87.1 kg (192 lb) 02/02/2013 2:18 PM EDT Height 182.9 cm (6') 02/02/2013 2:18 PM EDT Body Mass Index 26.04 02/02/2013 2:18 PM EDT documented in this encounter Progress Notes * Saurabh Royal MD - 02/02/2013 3:13 PM EDT Mr. Machado presents today to discuss his increasing pain in his low back and bilateral upper extremities. 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 He is having right knee pain and his usual low back and upper extremity pain which seems to be worse now than it ever was. 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 Aside from the fact that his right foot he states he feels a little bit more numb, he has no other issues related to his back. He has no loss of control of bladder or bowel, increased weakness, he is not tripping, etc. He is using Coumadin right now, but he will be off it in a couple of months. He remains extremely active doing karate. He does know kumite and only does susan. He has no prior history of alcoholism or drug abuse. He does not smoke cigarettes. He has a brother who might have had a problem with alcoholism after his child . He has never been incarcerated, and he has objective evidence of a painful disorder. He remains a very big candidate for opioid therapy especially based on our long history together and his long history with Dr. Mckeon. He truly treasures his relationship with Dr. Mckeon. I would suggest the following. Stop the 10 mg Percocet tablets and substitute 15 mg of oxycodone. If you agree, Dr. Mckeon, he could take that twice a day in addition to his methadone. We discussed a lot of different transmutations of opioid treatment including oxycodone and hydromorphone, oxycodone and MS Contin, etc., but I think that this is probably the best course of action for him. I have also reviewed with him a trial and possible implantation of a spinal cord stimulating device and gave him a DVD. I think that this would be a very reasonable option for him once he is off his Coumadin and once his other more serious medical issues are dealt with. He is a nice man. I hope that we can do something to help him. We spent 25 minutes together today, 15 of which was spent with my describing the trial and permanent implantation, etc. of spinal cord stimulation and reviewing the similarities and differences of all the opioids that we discussed. documented in this encounter Plan of Treatment Upcoming Encounters Date Type Department Care Team (Late st Contact Info) Description 08/18/2024 11:00 AM EDT Hospital Encounter Non-Invasive [place] [address] Arrived 02/22/2025 1:30 PM EDT Appointment Hematology and Oncology at [place] [phone] 02/22/2025 2:30 PM EDT Office Visit Hematology [place] [address] Ellis Childers MD [facility] [address] [place] [address] Felicita Landa APRN [facility] [address] [place] [address] documented as of this encounter Visit Diagnoses Diagnosis Lumbar radiculopathy- Primary Thoracic or lumbosacral neuritis or radiculitis, unspecified documented in this encounter Care Teams Toe Lining Closer Relationship Specialty Start Date End Date Radha Mckeon MD [address] [place] [address] PCP - General 09/23/10 documented as of this encounter
--- OUTSIDE RECORDS SUMMARY | 2024-07-24 17:31 | XMS_ITS | Encounter Summary ---
Author Organization [facility] Address [facility] [place] [address] Care Team Providers Care Stock Letterer Name Role Phone Radha Mckeon MD Primary Care Provider [phone] Encounter Details Date Type Department Care Team (Latest Contact Info) Description 02/02/2013 10:42 AM EDT - 02/02/2013 12:37 PM EDT Hospital Encounter XRay at [address] [place] [address] S/P knee replacement Social History Tobacco Use Types [...] AM EDT Hospital Encounter Non-[place] [phone] Arrived 02/22/2025 1:30 PM EDT Appointment H[place]ology [place] [address] 02/22/2025 2:30 PM EDT Office Visit [place]ology [place] [address] Ellis Childers MD [facility] DR HEMATOLOGY AND ONCOLOGY [place], [place] [id number] Felicita Landa APRN [facility] [address] HEMATOLOGY AND ONCOLOGY [place], [place] [phone] documented as of this encounter Procedures Procedure Name Priority Date/Time Associated Diagnosis Comments XR KNEE DIAGNOSTIC 1 OR 2 VIEW Routine 02/02/2013 10:55 AM EDT S/P knee replacement documented in this encounter Results * XR knee diagnostic 1 or 2 view (02/02/2013 10:55 AM EDT) Anatomical Region Laterality Modality Knee N/A Radiographic Nano ging 02/02/2013 10:5 5 AM EDT Narrative 02/02/2013 3:47 PM EDT Examination KNEE 1 OR 2 VIEWS/RIGHT Clinical History S/P TKA; Comparison Knee radiographs, 11/13/2010 and 06/17/2010. ?? Technique Single frontal view of the bilateral knees and lateral view of the right knee. Findings Right total knee arthroplasty is unchanged in appearance. No new periprosthetic lucency or evidence of fracture. No soft tissue calcifications or joint effusion identified. Bone mineralization is normal. ?? Impression Right total knee arthroplasty without radiographic evidence for complication. Film and interpretation reviewed by the attending Procedure Note Santhosh Angela MD - 02/02/2013 Examination KNEE 1 OR 2 VIEWS/RIGHT Clinical History S/P TKA; Comparison Knee radiographs, 11/13/2010 and 06/17/2010. Technique Single frontal view of the bilateral knees and lateral view of the rightknee. Findings Right total knee arthroplasty is unchanged in appearance. No newperiprosthetic lucency or evidence of fracture. No soft tissue calcifications or joint effusion identified. Bone mineralization is normal. Impression Right total knee arthroplasty without radiographic evidence forcomplication. Film and interpretation reviewed by the attending Ganga Mi MD IMG DX ORDERABLES documented in this encounter Visit Diagnoses Diagnosis S/P knee replacement Knee joint replacement by other means documented in this encounter Care Teams Stock Letterer Relationship Specialty Start Date End Date Radha Mckeon MD [address] [place] [address] PCP - General 09/23/10 documented as of this encounter
--- OUTSIDE RECORDS SUMMARY | 2024-07-24 17:31 | XMS_ITS | Encounter Summary ---
Author Organization [facility] [place] [address] Care Team Providers Care Public Service Officer Name Role Phone Radha Mckeon MD Primary Care Provider [phone] Reason for Visit * Reason Onset Date Comments Other 08/31/2016 please see MLGs note from 08.27.2016 with [facility] Encounter Details Date Type Department Care Team (Late st Contact Info) Description 08/31/2016 Telephone Cardiology at [address] [address] Diogo Robb PA [facility] [place] [address] Other (please see MLGs note from 08.27.2016 with [facility]) Social History Tobacco Use Types Packs/Day Years [...] * Telephone Encounter - Jesica Avery - 08/31/2016 10:23 AM EDT Patient called specifically asking to talk to you.Please see Dr. Argueta's note in eD-H from 08/27/2016 with [facility]. Patient wants to discuss with you the recommendations and your thoughtson it. Please call him before noon today or after 1:00 today at home [phone] Thank you. documented in this encounter Plan of Treatment Upcoming Encounters Date Type Department Care Team (Late st Contact Info) Description 08/18/2024 11:00 AM EDT Hospital Encounter Non-Invasive [place] [address] Arrived 02/22/2025 1:30 PM EDT Appointment Hematology and Oncology at [place] [address] 02/22/2025 2:30 PM EDT Office Visit Hematology and Oncology at [place] [address] Ellis Childers MD [facility] [address] [place] [address] Felicita Landa APRN [facility] [address] [place] [address] documented as of this encounter Visit Diagnoses Not on filedocumented in this encounter Care Teams Public Service Officer Relationship Specialty Start Date End Date Radha Mckeon MD [address] [place] [address] PCP - General 09/23/10 documented as of this encounter
--- OUTSIDE RECORDS SUMMARY | 2024-07-24 17:31 | XMS_ITS | Encounter Summary ---
[place] [address] Care Team Providers Care Dental Assistant Name Role Phone Radha Mckeon MD Primary Care Provider [phone] Encounter Details Date Type Department Care Team (Late st Contact Info) Description 07/01/2015 Telephone [place] [phone] Sharona Martin LPN Social History Tobacco Use [...] Telephone Encounter - Sharona Morris LPN - 07/01/2015 2:05 PM EDT Patient called just to update Dr. Royal on his scheduled surgery. Wasn't sure if Dr. Royal was going to prescribe his medications after surgery or his PCP. Reviewed with Dr. Royal. Dr. Royal would be glad to prescribe for Mr. Machado after surgery or his PCP can prescribe. Patient to call Dr. Royal if he has any issues. Advised patient Dr. Royal's recommendations. At this time the PCP will be prescribing and if hehas any questions he will call Dr. Royal. documented in this encounter Plan of Treatment Upcoming Encounters Date Type Department Care Team (Late st Contact Info) Description 08/18/2024 11:00 AM EDT Hospital Encounter Non-[place]vasive [place] [address] Arrived 02/22/2025 1:30 PM EDT Appointment Hematology [place] [address] 02/22/2025 2:30 PM EDT Office Visit Hematology and Oncology at [place] [phone] Ellis Childers MD [facility] [address] [place] [address] Felicita Landa APRN [facility] [place] [address] documented as of this encounter Visit Diagnoses Not on filedocumented in this encounter Care Teams Dental Assistant Relationship Specialty Start Date End Date Radha Mckeon MD [address] [place] [address] PCP - General 09/23/10 documented as of this encounter
--- OUTSIDE RECORDS SUMMARY | 2024-07-24 17:31 | XMS_ITS | Encounter Summary ---
Author Organization [facility] [place] [address] Care Team Providers Care Video Technician Name Role Phone Radha Mckeon MD Primary Care Provider [phone] Reason for Visit * Reason Comments [facility] SP R TKA DOS 01/14/10 SP FALL 09/23/13 HURT SHOULDER AND RIBS Encounter Details Date Type Department Care Team (Late st Contact Info) Description 10/12/2013 3:30 PM EST Office [place] [phone] aGnga Mi MD [facility] [place] [address] Chronic back pain greater than 3 months duration; S/P knee replacement, right Discharge Disposition: Home Social [...] Sign Reading Time Taken Comments Blood Pressure 139/99 10/12/2013 4:17 PM EST Pulse 93 10/12/2013 4:17 PM EST Temperature - - Respiratory Rate - - Oxygen Saturation - - Inhaled Oxygen Concentration - - Weight 85.3 kg (188 lb) 10/12/2013 4:17 PM EST S [place] Height 182.9 cm (6') 10/12/2013 4:17 PM EST STAT ED Body Mass Index 25.5 10/12/2013 4:17 PM EST documented in this encounter Progress Notes * Ganga Mi - 10/18/2013 9:57 AM EST I have seen the patient and reviewed the resident's above history and I agree with the details as written. The assessment and plan were formulated in discussion with me and I agree with them as documented. marlen * Wilfredo Chambers MD - 10/12/2013 5:20 PM EST HISTORY OF PRESENT ILLNESS: Mr. Machado is a 63-year-old gentleman who is 3-1/2 years status post right total knee arthroplasty. The patient returns to clinic little over a month after last being seen for complaints of right knee pain. A bone Scan, ultrasound of the extensor mechanism, and laboratory work were all obtained in the interim inhopes of eliciting any kind of infectious versus structural causes of his pain. In regards to the bone scan as detailed in Dr. Mi's previous letter, there is no evidence of increased uptake in the right knee arthoplasty compared to his inaja left knee. In regards to the ultrasound, there is no pathology appreciated on the ultrasound. Interval imaging showed no acute complications, when comparing the interval films. There is no evidence of osteolysis. No signs of infection. No acute fracturenoted. Mr. Machado remains exquisitely tender to palpation over the anterior aspect of his knee. Pain has not decreased at all since last being seen. PHYSICAL EXAMINATION: Right lower extremity: No significant effusion noted on the knee, incision appears well healed. Mr. Machado can obtain full extension and flexion to 105 degrees. Knee is stable to varus and valgus stress. PCL was intact. No tingling noted in the leg. Does endorse some numbnessat the distal aspect of the incision. ASSESSMENT AND PLAN: Mr. Machado is a 63-year-old gentleman 3-1/2 years out status post right totalknee with continued complaints of right knee pain. The patient states that his knee never quite felt like the pain went away after the surgery. Despite our best efforts in discovering an etiology of his symptoms, we have not elicited any obvious source. We have suggested that he obtain second opinion preferably from the orthopedic surgeons from [facility]. The patient will return home and discuss this idea of obtaining a second consult and will contact us here at the orthopedic clinic to let us know. As of right now, there is no obvious source of his pain. Therefore any kind of physical therapy or surgical intervention is not warranted at this time. The patient should return to clinic in one year's time. documented in this encounter Plan of Treatment Upcoming Encounters Date Type Department Care Team (Late st Contact Info) Description 08/18/2024 11:00 AM EDT Hospital Encounter Non-Invasive Cardiology Lab [place] [phone] Arrived 02/22/2025 1:30 PM EDT Appointment Hematology and Oncology at [place] [address] 02/22/2025 2:30 PM EDT Office Visit Hematology and Oncology at [place] [address] Ellis Childers MD [facility] DR HEMATOLOGY [place] [address] Felicita Landa APRN [facility] DR HEMATOLOGY [place] [address] documented as of this encounter Visit Diagnoses Diagnosis Chronic back pain greater than 3 months duration Backache, unspecified S/P knee replacement, right documented in this encounter Care Teams Video Technician Relationship Specialty Start Date End Date Radha Mckeon MD [address] [place] [address] PCP - General 09/23/10 documented as of this encounter
--- OUTSIDE RECORDS SUMMARY | 2024-07-24 17:31 | XMS_ITS | Encounter Summary ---
Author Organization [facility] [place] [address] Care Team Providers Care Yard Hand Name Role Phone Radha Mckeon MD Primary Care Provider [phone] Encounter Details Date Type Department Care Team (Late st Contact Info) Description 02/02/2013 3:23 PM EDT - 02/02/2013 11:59 PM EDT Hospital Encounter [place] [address] CARDIO, ECHO SIXTY MIN APPT None Jyothi Judge MD [facility] [place] [address] High risk medication use Discharge Disposition: Home Social History Tobacco Use [...] AM EDT Hospital Encounter [place] [address] Arrived 02/22/2025 1:30 PM EDT Appointment Hematology [place] [address] 02/22/2025 2:30 PM EDT Office Visit Hematology [place] [address] Ellis Childers MD [facility] [place] [address] Felicita Landa APRN [facility] [place] [address] documented as of this encounter Procedures Procedure Name Priority Date/Time Associated Diagnosis Comments ECHOCARDIOGRAM LIMITED STAT 3 1:49 PM EDT High risk medication use documented in this encounter Results * Echocardiogram limited (02/02/2013 1:49 PM EDT) EF 64 HEARTThe [employer] SYSTEM Anatomical Region Laterality Modality Other 02/02/2013 Narrative 02/02/2013 2:37 PM EDT Procedure: ? Transthoracic Echocardiogram Patient: ? MILY Foreman ? (Age): 1950(62) Med Rec#: ?[id number] ? Sex: ?M ? [place] [place] Ht / Wt: ??183(cm)/87(kg) Pt. Loc: ? Echo Lab ? BSA: ?2.1 Study Date: ?02/02/2013 ? Pt. Type: Outpatient Tape: ? Referring: Jyothi Judge ([id number]) Management Intern: Malik Tee JOSLYN Diagnosis: ??Pericardial effusion (423.9) CPT Code(s): ??Echo Full (29310), ??Spectral Doppler (05236), ??Color Doppler (30482), Indication(s): ??Pericardial effusion, R/O Rhythm: HR ?BP ?150/83 ?? SUMMARY: 1. The quantitative left ventricular ejection fraction [...] artery systolic pressure is 26 mmHg. ?? FINDINGS: Left Ventricle ?The left ventricular chamber size is normal. ?Left ventricular wall thickness is normal. ?There is normal global left ventricular systolic function. ?The quantitative left ventricular ejection fraction by biplane Herrera's method is 64%. ?There are no left ventricular segmental wall motion abnormalities. ?Left sided filling pressure could not be assessed by Doppler. Left Atrium ?The left atrium is normal in size. Right Ventricle ?Right ventricular chamber size, wall thickness, and systolic function are within normal limits. ?The estimated pulmonary artery systolic pressure is 26 mmHg. ?The estimated right atrial pressure is 3 mmHg. Right Atrium ?The right atrium is mildly dilated. Aortic Valve ?The aortic valve is not well visualized. ?The aortic valve is probably tricuspid. ?There is no evidence of aortic valve thickening. ?Mild (1+/4+) aortic valve regurgitation is present. Mitral Valve ?The mitral valve appears normal in structure and function. ?There is mild (1+/4+) mitral regurgitation present. Tricuspid Valve ?The tricuspid valve appears normal in structure and function. ?There is mild (1+/4+) tricuspid regurgitation present. Pulmonic Valve ?The pulmonic valve appears normal in structure and function. ?There is mild (1+/4+) pulmonic regurgitation present. Pericardium ?The pericardium appears normal and there is no evidence of a pericardial effusion. Aorta ?The aortic root is normal in size. ?The ascending aorta is normal in size. Pulmonary Artery ?The main pulmonary artery appears normal. Venous ?The inferior vena cava appears normal in size. ?There is a greater than 50% respiratory change in the inferior vena cava dimension. Misc ?See remainder of report for additional findings. ?Two-dimensional echo, spectral Doppler and color Doppler performed. Wall Motion: Segment Name ?Rest ? Base-Anteroseptal ?? Normal ? Base-Anterior ? Normal ? Base-Anterolateral ??Normal ? Base-Posterolateral Normal ? Base-Inferior ? Normal ? Base-Inferoseptal ?? Normal ? Mid-Anteroseptal ?Normal ? Mid-Anterior ?Normal ? Mid-Anterolateral ?? Normal ? Mid-Posterolateral ??Normal ? Mid-Inferior ?Normal ? Mid-Inferoseptal ?Normal ? [place]-Septal ? Normal ? [place]-Anterior ? Normal ? [place]-Lateral ?Normal ? [place]-Inferior ? Normal ? [place]-Tip ?Normal ? Chambers ?Value ?Units (Range) ? EF ??Bi-p Simp ? 64 ? % (55 to 80) ? IVSd 2D ? 0.9 ?cm ? LVIDd 2D ?5.4 ?cm ? PWd 2D ?1.1 ?cm ? LVIDs 2D ?3.5 ?cm ? LVFS 2D ? 35 ? % ? LA area ? 19 ? cm2 (<21) ? RA area ? 22 ? cm2 (<18) ? Ao root ? 3.4 ?cm (2.1 to 3.6) ? Asc Ao ?3 ?cm (2 to 3.5) ? Mitral Valve ?Value ?Units (Range) ? E peak ?0.8 ?m/sec ? E/A ratio ? 1.3 ?ratio ? MVDT ?204 ?msec ? E1 ?0.08 ? m/sec ? E/E1 ?10 ? ratio ? Tricuspid/Pulmonic Valves ?Value ?Units (Range) ? TR peak isabel ? 2.4 ?m/sec ? RAP ? 3 ?mmHg ? RVSP/PASP ? 26 ? mmHg ? This report has been electronically signed by: Óscar Foreman. MD Vamshi ? 02/02/2013 14:36:23 Images reviewed and interpretation verified [facility] Cardiac Ultrasound Laboratory Procedure Note Óscar Bonds MD - 02/02/2013 Procedure: Transthoracic Echocardiogram Patient: MILY Foreman DOB(Age): 1950(62) Med Rec#: [id number] Sex: M [place]: [facility] [place] Ht / Wt: 183(cm)/87(kg) Pt. Loc: Echo Lab BSA: 2.1 Study Date: 02/02/2013 Pt. Type: Outpatient Tape: Referring: Jyothi Judge ([id number]) Management Intern: Malik Tee [facility] Diagnosis: Pericardial effusion (423.9) CPT Code(s): Echo Full (14159), Spectral Doppler (75347), Color Doppler (96996), Indication(s): Pericardial effusion, R/O Rhythm: HR BP 150/83 SUMMARY: 1. The quantitative left ventricular ejection fraction [...] pulmonary artery systolic pressure is 26 mmHg. FINDINGS: Left Ventricle The left ventricular chamber size is normal. Left ventricular wall thickness is normal. There is normal global left ventricular systolic function. The quantitative left ventricular ejection fraction by biplane Herrera's method is 64%. There are no left ventricular segmental wall motion abnormalities. Left sided filling pressure could not be assessed by Doppler. Left Atrium The left atrium is normal in size. Right Ventricle Right ventricular chamber size, wall thickness, and systolic function are within normal limits. The estimated pulmonary artery systolic pressure is 26 mmHg. The estimated right atrial pressure is 3 mmHg. Right Atrium The right atrium is mildly dilated. Aortic Valve The aortic valve is not well visualized. The aortic valve is probably tricuspid. There is no evidence of aortic valve thickening. Mild (1+/4+) aortic valve regurgitation is present. Mitral Valve The mitral valve appears normal in structure and function. There is mild (1+/4+) mitral regurgitation present. Tricuspid Valve The tricuspid valve appears normal in structure and function. There is mild (1+/4+) tricuspid regurgitation present. Pulmonic Valve The pulmonic valve appears normal in structure and function. There is mild (1+/4+) pulmonic regurgitation present. Pericardium The pericardium appears normal and there is no evidence of a pericardial effusion. Aorta The aortic root is normal in size. The ascending aorta is normal in size. Pulmonary Artery The main pulmonary artery appears normal. Venous The inferior vena cava appears normal in size. There is a greater than 50% respiratory change in the inferior vena cava dimension. Misc See remainder of report for additional findings. Two-dimensional echo, spectral Doppler and color Doppler performed. Wall Motion: Segment Name Rest Base-Anteroseptal Normal Base-Anterior Normal Base-Anterolateral Normal Base-Posterolateral Normal Base-Inferior Normal Base-Inferoseptal Normal Mid-Anteroseptal Normal Mid-Anterior Normal Mid-Anterolateral Normal Mid-Posterolateral Normal Mid-Inferior Normal Mid-Inferoseptal Normal [place]-Septal Normal [place]-Anterior Normal [place]-Lateral Normal [place]-Inferior Normal [place]-Tip Normal Chambers Value Units (Range) EF Bi-p Simp 64 % (55 to 80) IVSd 2D 0.9 cm LVIDd 2D 5.4 cm PWd 2D 1.1 cm LVIDs 2D 3.5 cm LVFS 2D 35 % LA area 19 cm2 (<21) RA area 22 cm2 (<18) Ao root 3.4 cm (2.1 to 3.6) Asc Ao 3 cm (2 to 3.5) Mitral Valve Value Units (Range) E peak 0.8 m/sec E/A ratio 1.3 ratio MVDT 204 msec E1 0.08 m/sec E/E1 10 ratio Tricuspid/Pulmonic Valves Value Units (Range) TR peak isabel 2.4 m/sec RAP 3 mmHg RVSP/PASP 26 mmHg This report has been electronically signed by: Óscar Bonds MD 02/02/2013 14:36:23 Images reviewed and interpretation verified [facility] Cardiac Ultrasound Laboratory Jyothi Judge MD ECHO ORDERABLES documented in this encounter Visit Diagnoses Diagnosis High risk medication use Encounter for long-term (current) use of other medications documented in this encounter Care Teams Yard Hand Relationship Specialty Start Date End Date Radha Mckeon MD [address] [place] [address] PCP - General 09/23/10 documented as of this encounter
--- OUTSIDE RECORDS SUMMARY | 2024-07-24 17:31 | XMS_ITS | Encounter Summary ---
Author Organization [facility] Address [facility] [place] [address] Care Team Providers Care Job Coach Name Role Phone Radha Mckeon MD Primary Care Provider Encounter Details Date Type Department Care Team (Latest Contact Info) Description 11/15/2014 2:25 PM EST - 11/15/2014 11:59 PM [facility] Hospital Encounter XRay at [address] [place] [address] Aftercare following joint replacement Social History Tobacco Use Types Packs/Day [...] AM EDT Hospital Encounter Non-Invasive [place] [address] Arrived 02/22/2025 1:30 PM EDT Appointment Hematology [place] [address] 02/22/2025 2:30 PM EDT Office Visit Hematology [place] [phone] Ellis Childers MD [facility] DR [place] [address] Felicita Landa APRN [facility] [address] HEMATOLOGY [place] [address] documented as of this encounter Procedures Procedure Name Priority Date/Time Associated Diagnosis Comments XR KNEE DIAGNOSTIC 1 OR 2 VIEW Routine 11/15/2014 2:49 PM EST Aftercare following joint replacement documented in this encounter Results * [...] encounter Visit Diagnoses Diagnosis Aftercare following joint replacement documented in this encounter Care Teams Job Coach Relationship Specialty Start Date End Date Radha Mckeon MD [address] [place] [address] PCP - General 09/23/10 documented as of this encounter
--- OUTSIDE RECORDS SUMMARY | 2024-07-24 17:31 | XMS_ITS | Encounter Summary ---
[place] [address] Care Team Providers Care Test Kitchen Home Economist Name Role Phone Radha Mckeon MD Primary Care Provider [phone] Encounter Details Date Type Department Care Team (Late st Contact Info) Description 06/26/2015 Telephone [place] [phone] Susan Parham RN Social History Tobacco Use Types Packs/Day [...] encounter Miscellaneous Notes * Telephone Encounter - Susan Parham RN - 06/26/2015 1:57 PM EDT Return call to patient as he left message on Nurse voice mail to please call back. No answer left message awaiting call back at this time. documented in this encounter Plan of Treatment Upcoming Encounters Date Type Department Care Team (Late st Contact Info) Description 08/18/2024 11:00 AM EDT Hospital Encounter [place] [address] Arrived 02/22/2025 1:30 PM EDT Appointment Hematology [place] [address] 02/22/2025 2:30 PM EDT Office Visit Hematology [place] [address] Ellis Childers MD [facility] [place] [address] Felicita Landa APRN [facility] [place] [address] documented as of this encounter Visit Diagnoses Not on filedocumented in this encounter Care Teams Test Kitchen Home Economist Relationship Specialty Start Date End Date Radha Mckeon MD [address] [place] [address] PCP - General 09/23/10 documented as of this encounter
--- OUTSIDE RECORDS SUMMARY | 2024-07-24 17:31 | XMS_ITS | Encounter Summary ---
Author Organization [facility] [place] [address] Care Team Providers Care Fence Post Cutter Name Role Phone Radha Mckeon MD Primary Care Provider [phone] Reason for Visit * Reason Comments Pain Management Back Pain Encounter Details Date Type Department Care Team (Late st Contact Info) Description 11/15/2014 2:15 PM EST [place] [address] Saurabh Royal MD [facility] [place] [address] Bilateral lumbar radiculopathy; Chronic back pain greater than 3 months duration Discharge Disposition: Home Social History Tobacco Use [...] Sign Reading Time Taken Comments Blood Pressure 138/89 11/15/2014 3:03 PM EST Pulse 58 11/15/2014 3:03 PM EST Temperature - - Respiratory Rate - - Oxygen Saturation 100% 11/15/2014 3:0 3 PM EST Inhaled Oxygen Concentration - - Weight 88.9 kg (196 lb) 11/15/2014 3:03 PM EST with heavy work boots on Height - - Body Mass Index 26.58 10/12/2013 4:17 PM EST documented in this encounter Progress Notes * Saurabh Royal MD - 11/15/2014 4:10 PM EST Mr. Machado is a very nice 64-year-old gentleman whom I have been caring for many years. 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 He is still raising his three grandkids and he pretty much had to do on his own because his poor is so ill with her chronic obstructive pulmonary disease. His grandkids have been traumatized and it sounds like that they can be handful. He has been suffering from left shoulder pain and has seen a couple of different doctors and he is planning on having what sounds like a fairly big operation on his left shoulder. His mood is good. His activity level is somewhat restricted, but okay. He has tried medical cannabis in the past without much success and he is worried about having it in the house because of his grandkids. He did go to [facility] [employer] [facility] [employer] when it first opened and I have advised him that it might be useful for him to check it out again and check out some of their edibles, etc., so that the kids would not know really what is going on. He is here really for advice about perioperative and postoperative pain management and my advice would be that if he is going to spend the night or two nights in the hospital that he would be treated with a MARINE TOWER OPERATOR device and he could be treated with morphine sulfate 2 mg with a lockout interval of five minutes and a 30 mg four-hour limit, which could be raised if he needed to use more meds. Alternatively, he could be treated with hydromorphone, in which case I would use a 0.2 mg dose, again with a lockout interval of five minutes and a four-hour limit of about 3 or 4 mg, which again could be raised if necessary. If he is going to be discharged the same day or if he spends a night or two in the hospital and then goes home, I would recommend treating him with oxycodone 15 to 30 mg every four hours as needed for at least a couple of weeks postoperatively. I am happy to get involved with his postoperative management if that is useful to Mr. Machado or to his surgeons. He really is a abbey mona and I am happy to see him at any time, but I am so sorry that he is having so many difficulties with his life right now. He does seem to be coping well despite it all. I will be seeing him back on an as-needed basis. We spent 50 minutes together today, 30 of which was spent with my advising regarding postoperative pain management and medical cannabis and etc. documented in this encounter Plan of Treatment Upcoming Encounters Date Type Department Care Team (Late st Contact Info) Description 08/18/2024 11:00 AM EDT Hospital Encounter Non-Invasive Cardiology Lab [place] [address] Arrived 02/22/2025 1:30 PM EDT Appointment Hematology and Oncology at [address] 02/22/2025 2:30 PM EDT Office Visit Hematology and Oncology at [place] [address] Ellis Childers MD [facility] HEMATOLOGY [place] [address] Felicita Landa APRN [facility] [address] HEMATOLOGY [place] [address] documented as of this encounter Visit Diagnoses Diagnosis Bilateral lumbar radiculopathy Chronic back pain greater than 3 months duration Backache, unspecified documented in this encounter Care Teams Fence Post Cutter Relationship Specialty Start Date End Date Radha Mckeon MD [address] [place] [address] PCP - General 09/23/10 documented as of this encounter
--- OUTSIDE RECORDS SUMMARY | 2024-07-24 17:31 | XMS_ITS | Encounter Summary ---
Author Organization [facility] [place] [address] Care Team Providers Care Electroplater Automatic Name Role Phone Radha Mckeon MD Primary Care Provider [phone] Encounter Details Date Type Department Care Team (Latest Contact Info) Description 02/02/2013 3:19 PM EDT - 02/02/2013 11:59 PM EDT Hospital Encounter Non-[place] [phone] JIG BORING MACHINE SET UP OPERATOR, Sanford Murphy MD [facility] [place] [address] Atrial fibrillation Discharge Disposition: Home Social History Tobacco [...] AM EDT Hospital Encounter Non-[place] [address] Arrived 02/22/2025 1:30 PM EDT Appointment Hematology [place] [phone] 02/22/2025 2:30 PM EDT Office Visit Hematology [place] [address] Ellis Childers MD [facility] [place] [address] Felicita Landa APRN [facility] [place] [address] documented as of this encounter Procedures Procedure Name Priority Date/Time Associated Diagnosis Comments SHANKAROPATCH Routine 02/02/2013 3:54 PM EDT Atrial fibrillation documented in this encounter Results * ZIOPATCH (02/02/2013 3:54 PM EDT) Anatomical Region Laterality Modality Other Narrative 03/05/2013 10:33 PM EDT Cardiac Electrophysiology Zio Monitor Study Initiated: ??February 02, 2013 Duration: ?? 13 days 13 hours (after removal of artifact) Indication: Atrial fibrillation Result: The heart rate range was 45-132/minute, and averaged 63/minute. The predominant underlying rhythm throughout the recording period was conducted sinus rhythm. The slowest heart rates tended to occur overnight, but not markedly so. No pauses >3 seconds were seen, and there was no type II second degree or third degree atrioventricular conduction block reported or observed. There were rare isolated ectopic supraventricular beats detected, as well as couplets and triplets (<1.0%). There was 1 supraventricular tachycardia episode detected (9 beats at a mean rate of 113/minute, and at a maximum rate of 134/minute). There were rare ectopic ventricular beats detected (<1.0%). There were no ventricular tachycardia runs detected. The patient wrote in 3 diary entries once symptoms of pounding, fluttering/racing, cherst pain/pressure, and dyspnea; unremarkable sinus rhythm was seen at the times noted for these symptomatic episodes. There were 11 triggered episodes which correlated to sinus rhythm and supraventricular or ventricular ectopic beats. Conclusion: With regard to rhythm status, no substantial atrial fibrillation was identified during the 2 weeks of monitoring, despite the diary notations. The patient perhaps felt some of his ectopic beats. ____ Interpreted by Sanford Byrd M.D. Procedure Note Sanford Byrd MD - 03/05/2013 Cardiac Electrophysiology Zio Monitor Study Initiated: February 02, 2013 Duration: 13 days 13 hours (after removal of artifact) Indication: Atrial fibrillation Result: The heart rate range was 45-132/minute, and averaged 63/minute. The predominant underlying rhythm throughout the recording period wasconducted sinus rhythm. The slowest heart rates tended to occur overnight,but not markedly so. No pauses >3 seconds were seen, and there was no type II second degree orthird degree atrioventricular conduction block reported or observed. There were rare isolated ectopic supraventricular beats detected, aswell as couplets and triplets (<1.0%). There was 1 supraventriculartachycardia episode detected (9 beats at a mean rate of 113/minute, and pema maximum rate of 134/minute). There were rare ectopic ventricular beats detected (<1.0%). There wereno ventricular tachycardia runs detected. The patient wrote in 3 diary entries once symptoms of pounding,fluttering/racing, cherst pain/pressure, and dyspnea; unremarkable sinusrhythm was seen at the times noted for these symptomatic episodes. Therewere 11 triggered episodes which correlated to sinus rhythm andsupraventricular or ventricular ectopic beats. Conclusion: With regard to rhythm status, no substantial atrial fibrillation wasidentified during the 2 weeks of monitoring, despite the diary notations.The patient perhaps felt some of his ectopic beats. ____ Interpreted by Sanford Byrd M.D. Sanford Byrd MD CARDIAC SERVICES ORD ERABLES documented in this encounter Visit Diagnoses Diagnosis Atrial fibrillation documented in this encounter Care Teams Electroplater Automatic Relationship Specialty Start Date End Date Radha Mckeon MD [address] [place] [address] PCP - General 09/23/10 documented as of this encounter
--- OUTSIDE RECORDS SUMMARY | 2024-07-24 17:31 | XMS_ITS | Encounter Summary ---
Author Organization [place] [address] Care Team Providers Care Trimming Inspector Name Role Phone Radha Mckeon MD Primary Care Provider [phone] Reason for Visit * Reason Onset Date Comments Other 05/06/2016 Dizzy Spell on Encounter Details Date Type Department Care Team (Late st Contact Info) Description 05/06/2016 Telephone Cardiology at [address] [address] Diogo Robb, PA [facility] [place] [address] Other (Dizzy Spell on 05/05/16) Social History Tobacco Use Types Packs/Day Years [...] * Telephone Encounter - Rosanna Altamirano - 05/06/2016 12:31 PM EDT Hi Diogo, Mr. Machado left a voice mail letting you know that he had a bad dizzy spell on 05/05/16 and would like to talk with you about it. He can be reached on his home number at [phone] or his cell number at [phone]. Thank you, Magdalena documented in this encounter Plan of Treatment Upcoming Encounters Date Type Department Care Team (Late st Contact Info) Description 08/18/2024 11:00 AM EDT Hospital Encounter Non[place] [phone] Arrived 02/22/2025 1:30 PM EDT Appointment Hematology and Oncology at [place] [address] 02/22/2025 2:30 PM EDT Office Visit Hematology and Oncology at [place] [address] Ellis Childers MD [facility] [address] [place] [address] Felicita Landa APRN [facility] [address] [place] [address] documented as of this encounter Visit Diagnoses Not on filedocumented in this encounter Care Teams Trimming Inspector Relationship Specialty Start Date End Date Radha Mckeon MD [address] [place] [address] PCP - General 09/23/10 documented as of this encounter
--- OUTSIDE RECORDS SUMMARY | 2024-07-24 17:31 | XMS_ITS | Encounter Summary ---
Author Organization [facility] [address] Care Team Providers Care Bridge Expert Name Role Phone Radha Mckeon MD Primary Care Provider [phone] Encounter Details Date Type Department Care Team (Late st Contact Info) Description 04/04/2013 Telephone Cardiology at [address] [phone] Trudi Robb PA [facility] [place] [address] Social History Tobacco Use Types Packs/Day Years [...] encounter Miscellaneous Notes * Telephone Encounter - Trudi Robb PA - 04/04/2013 5:26 PM EDT Zio patch shows no afib - periodic APBs, VPbs, brief SVT Symptomatically improved though still feels sensation of palpitations. ~4 months post ablation anticoagulated on coumadin OK to d/c coumadin at this point Will follow up in three months with 12 lead EKG * Telephone Encounter - Shruthi Allen RN - 04/04/2013 11:20 AM EDT Pt calls asking about how to discontinue warfarin. His message stated that he was told he'd be on warfarin for three months after ablasion and he wants to know if he needs an appointment before stopping warfarin or if he can just stop taking it at the three month trudi. documented in this encounter Plan of Treatment Upcoming Encounters Date Type Department Care Team (Late st Contact Info) Description 08/18/2024 11:00 AM EDT Hospital Encounter Non-[place]vasive [place] [address] Arrived 02/22/2025 1:30 PM EDT Appointment Hematology and Oncology at [address] 02/22/2025 2:30 PM EDT Office Visit Hematology and Oncology at [place] [phone] Ellis Childers MD [facility] [address] [place] [address] Felicita Landa APRN [facility] [address] [place] [address] documented as of this encounter Visit Diagnoses Not on filedocumented in this encounter Care Teams Bridge Expert Relationship Specialty Start Date End Date Radha Mckeon MD [address] [place] [address] PCP - General 09/23/10 documented as of this encounter
--- OUTSIDE RECORDS SUMMARY | 2024-07-24 17:32 | XMS_ITS | Encounter Summary ---
Author Organization [facility] [place] [address] Care Team Providers Care Train Clerk Name Role Phone Radha Mckeon MD Primary Care Provider [phone] Reason for Visit * Reason Comments Atrial Fibrillation Encounter Details Date Type Department Care Team (Late st Contact Info) Description 11/15/2012 12:40 PM EST Follow-Up Cardiology at [address] [address] Diogo Robb PA [facility] [place] [address] Atrial fibrillation; High risk medications (not anticoagulants) long-term use; A-fib Discharge Disposition: Home Social History Tobacco [...] Sign Reading Time Taken Comments Blood Pressure 128/70 11/15/2012 1:03 PM EST Pulse 60 11/15/2012 1:03 PM EST Temperature - - Respiratory Rate - - Oxygen Saturation 97% 11/15/2012 1:03 PM EST Inhaled Oxygen Concentration - - Weight 88.9 kg (196 lb) 11/15/2012 1:03 PM EST Height 182.9 cm (6') 11/15/2012 1:03 PM EST Body Mass Index 26.58 11/15/2012 1:03 PM EST documented in this encounter Patient Instructions * Patient Instructions* Diogo Robb PA - 11/15/2012 3:48 PM EST Will schedule for PVI/ablation documented in this encounter Progress Notes * Diogo Robb PA - 11/15/2012 1:15 PM EST Subjective: Patient ID: Malik Machado is a 62 y.o. male. HPI Mr. Machado is a 62 year old male with a history of recurrent paroxysmal atrial fibrillation maintained on dofetilide. His course has involved multiple cardioversions and failed flecainide therapy(NH/QRS prolongation). He has been on dofetilide since 12/2007 and was reasonably controlled for severalyears with sensation of occasional fluttering lasting less than a minute. Over the past six months, his episodes have become more frequent and more severe. He sometimes has associated lightheadedness, but has not had any presyncope or syncope since his last visit. His last echo was in 2006 and his last stress test was in 2007. Serial EKGs and a 30 day event monitor(12/2010) did not demonstrate afib or other arrythmia. A thirty day event monitor was obtained in September 2012 and showed only sinus rhythm, however, a second thirty day event monitor shows a somewhat organized AT or mid R-P tachycardia as well as a more disorganized atrial rhythm consistent withafib that is symtomatic. Patient Active Problem List Diagnoses ??? S/P knee replacement SURGERY DATE: 01/14/2010 MICHAEL CHAVEZ MD PROCEDURE PERFORMED: Right total knee arthroplasty. IMPLANTS USED: All implants were from the [employer] total knee system. 1. A size 4 [...] 2) Echo 09/09/2007 - normal; LVEF 60% 3) Nuclear stress 12/12/2007 Christiano, 6:45, 8.10 METS, 62-104HR, LVEF 63% ??? Hypertension ??? RBBB (right bundle branch block with left anterior fascicular block) ??? Lumbar radiculopathy ??? Chronic back pain greater than 3 months duration On methadone and baclofen ??? Knee pain Review of Systems Constitutional: Negative for fever, chills and fatigue. Respiratory: Negative for chest tightness and shortness of breath. Cardiovascular: Positive for palpitations. Negative for chest pain and leg swelling. Genitourinary: Negative for dysuria and frequency. Neurological: Positive for light-headedness. Negative for dizziness and syncope. Medications: Current outpatient prescriptions:Terral-3 Fatty Acids-Vitamin E (FISH OIL) 1,000 mg Cap, Take 1,000 mg by mouth 2 times daily., Disp: , Rfl: ; dofetilide (TIKOSYN) 500 mcg capsule, Take 1 capsule by mouth 2 times daily., Disp: 60 capsule, Rfl: 6; acetaminophen (TYLENOL) 500 mg tablet, Take 1,000 mg by mouth every 6 hours as needed. Indications: Headache Disorder, Pain, Disp: , Rfl: aspirin 325 mg tablet, Take 325 mg by mouth daily., Disp: , Rfl: ; baclofen (LIORESAL) 10 mg tablet, Take 10 mg by mouth daily., Disp: , Rfl: ; methadone (DOLOPHINE) 10 mg tablet, Take 10 mg by mouth2 times daily., Disp: , Rfl: ; metoprolol succinate (TOPROL-XL) 50 mg 24 hr tablet, Take 50 mg by mouth daily., Disp: , Rfl: ; OXYcodone-acetaminophen (PERCOCET) 5-325 mg per tablet, Take 1 tablet bymouth every 4 hours as needed., Disp: , Rfl: simvastatin (ZOCOR) 10 mg tablet, Take 10 mg by mouth nightly., Disp: , Rfl: ; SUMAtriptan (IMITREX) 100 mg tablet, Take 100 mg by mouth as needed., Disp: , Rfl: ; zolpidem (AMBIEN) 5 mg tablet, Take5 mg by mouth nightly as needed. 1 to 2 tabs hs prn, Disp: , Rfl: ; glucosamine-chondroitin 500-400mg tablet, , Disp: , Rfl: Objective: Physical [...] warm and dry. He is not diaphoretic. Lab Results Component Value Date NA 138 11/15/2012 K 4.3 11/15/2012 CL 102 11/15/2012 BUN 19 11/15/2012 CREATININE 0.76* 11/15/2012 MAGNESIUM 0.81 08/23/2012 12 lead EK11/15/2012 Sinus bradycardia @ 54; NH 164; QRS 138; QTc 460ms; RBBB, LAFB Event monitor: Date of Interpretation: 11/03/2011 Recordings from 08/23/2012 - 10/18/2012 Baseline: Date 08/23/2012 - shows sinus rhythm 54-63 bpm There are 3 submitted events 'none-pause' - date 09/21/2012 sinus rhythm 57-68 bpm 'racing heart' - date 10/18/2012 sinus rhythm and 2 episodes of SVT that are preceeded by a premature atrial contraction. The SVT 'warms up' to a cycle length of 400ms (150 bpm) and lasts just over 5 seconds for the first episode, and the second episode a few seconds later lasts about 13 seconds. Morphology appears to be 'Mid RP' 'follow up' - date 10/18/2012 sinus rhythm 65-76 bpm Impression: 1) Baseline sinus rhythm 2) Symptoms correlate with a supra ventricular tachycardia (Mid RP type) - though irregular Assessment and Plan: 62yo man with hx of PAF, failed flecainide, maintained on dofetilide but with regular, short duration breakthrough episodes of arrythmia that have gotten worse over time(more pronounced) and leave him feeling extremely fatigued. Recent use of an event monitor has demonstrated atrial fibrillation with rapid ventricular response as well as a more organized SVT(mid R-P) that are symptomatic. We discussed possible etiologies and treatment strategies and he would like to pursue an ablation approach. Renal function and electrolytes are acceptable. EKG shows stable QTc of 460ms. Continue dofetilide for now. Dr. Byrd happened to be available and joined us for discussion of risk/benefit of PVI ablation. Mr. Machado is claustrophobic and has difficulty laying flat or still due to chronic back pain. Will obtain cardiac CT in lieu of MRI and he will definitely need general anesthesia for this procedure. Will discuss with Pa Florez for planning. Provider: ANDREE Shelley Provider#: [id number] Consult attending physician: Cynthia Byrd MD documented in this encounter H&P Notes * Diogo Robb PA - 11/15/2012 3:43 PM EST See progress note. documented in this encounter Plan of Treatment Upcoming Encounters Date Type Department Care Team (Late st Contact Info) Description 08/18/2024 11:00 AM EDT Hospital Encounter Non-[place] [address] Arrived 02/22/2025 1:30 PM EDT Appointment Hematology [place] [address] 02/22/2025 2:30 PM EDT Office Visit Hematology [place] [address] Ellis Childers MD [facility] DR HEMATOLOGY [place] [address] Felicita Landa APRN [facility] HEMATOLOGY [place] [address] documented as of this encounter Procedures Procedure Name Priority Date/Time Associated Diagnosis Comments EKG 12-LEAD Routine 11/15/2012 1:06 PM EST Atrial fibrillation BASIC METABOLIC PANEL Routine 11/15/2012 12:39 PM EST High risk medications (not anticoagulants) long-term use documented in this encounter Results * EKG 12 Lead (11/15/2012 1:06 PM EST) Ventricular rate 54 BPM MUSE SYSTEM Atrial Rate 54 BPM MUSE SYSTEM P-R Interval 164 ms MUSE SYSTEM QRS Duration 138 ms MUSE SYSTEM Q-T Interval 486 ms MUSE SYSTEM QTC Calculated (Bezet) 460 ms MUSE SYSTEM Calculated P [place] 34 degrees MUSE SYSTEM Calculated R [place] -52 degrees MUSE SYSTEM Calculated T [place] -3 degrees MUSE SYSTEM INTERPRETATION Sinus bradycardia Right bundle branch block Left anterior fascicular block Bifascicular block Abnormal ECG When compared with ECG of 23-AUG-2012 12:48, No significant change was found I personally reviewed the tracing and edited the fellows interpretation Confirmed by fellow MD Kathy, Rigo ([id number]) on 11/16/2012 9:27:55 AM Confirmed by MD JENIFFER, NAOMI ([id number]) on 11/16/2012 2:02:24 PM MUSE SYSTEM 11/15/2012 1:06 PM EST 11/16/2012 2:02 PM EST Diogo Argueta MD ECG ORDERABLES MUSE SYSTEM * (ABNORMAL) Basic Metabolic Panel (non-fasting) (11/15/2012 12:39 PM EST) Glucose 133 60 - 199 mg/dL CERNER MILLENNIUM Comment:Diabetes: >=200 mg/d L plus symptoms Blood Urea Nitrogen 19 10 - 20 mg/dL CERNER MILLENNIUM Creatinine 0.76(L) 0.80 - 1.50 mg/dL CERNER MILLENNIUM Comment: Please note that the pediatric reference intervals supplied above were not validated at [facility]. Results from pediatric patients should be interpreted in conjunction to the patient's age, height and muscle mass. Sodium 138 135 - 145 mmol/L CERNER MILLENNIUM Potassium 4.3 3.5 - 5.0 mmol/L CERNER MILLENNIUM Comment: Please note: ??Patients with WBC >100,000 may have falsely elevated Potassium levels. ??For accurate Potassium quantification in these patients send serum separator tube (gold top) for subsequent determinations. ??Contact the Clinical Chemistry Laboratory if there are any questions. Chloride 102 98 - 107 mmol/L CERNER MILLENNIUM Carbon Dioxide 29 22 - 31 mmol/L CERNER MILLENNIUM Anion Gap 7 5 - 15 mmol/L CERNER MILLENNIUM Calcium 9.7 8.5 - 10.5 mg/dL CERNER MILLENNIUM Est [...] NA, Rishabh AK, Basil TS, Nicol AD, Raghu COURTNEY. Relative performance of the MDRD and CKD-EPI equations for estimating glomerular filtration rate among patients with varied clinical presentations. Clin J Am Soc Nephrol;6:1963-72. Blood specimen (specimen) 11/15/2012 12:39 PM EST 11/15/2012 12:48 PM EST Narrative Resulting Agency Comment Spec In Lab Jyothi Judge MD CHEMISTRY ORDERABL ES Performing Organization Address City/State/ZIP Co mi Phone Number [facility] documented in this encounter Visit Diagnoses Diagnosis Atrial fibrillation High risk medications (not anticoagulants) long-term use Encounter for long-term (current) use of other medications A-fib Atrial fibrillation documented in this encounter Care Teams Train Clerk Relationship Specialty Start Date End Date Radha Mckeon MD [address] [place] [address] PCP - General 09/23/10 documented as of this encounter
--- OUTSIDE RECORDS SUMMARY | 2024-07-24 17:32 | XMS_ITS | Encounter Summary ---
Author Organization [facility] [place] [address] Care Team Providers Care Warp Placer Name Role Phone Radha Mckeon MD Primary Care Provider Reason for Visit * Reason Onset Date Comments Results 10/18/2012 Encounter Details Date Type Department Care Team (Late st Contact Info) Description 10/18/2012 Telephone Cardiology at [address] [phone] Wilfredo Medina MD [facility] [place] [address] Results Social History Tobacco Use Types Packs/Day [...] encounter Miscellaneous Notes * Telephone Encounter - Wilfredo Medina MD - 10/18/2012 1:04 AM EST Received a call from Malcom Langford from [employer] regarding Mr. Machado's event monitor. He had a 10 second run of SVT and a 25 second run of atrial fib tonight and is currently back in sinus rhythm. documented in this encounter Plan of Treatment Upcoming Encounters Date Type Department Care Team (Late st Contact Info) Description 08/18/2024 11:00 AM EDT Hospital Encounter Non-Invasive [place] [address] Arrived 02/22/2025 1:30 PM EDT Appointment Hematology [place] [phone] 02/22/2025 2:30 PM EDT Office Visit Hematology [place] [phone] Ellis Childers MD [facility] DR HEMATOLOGY [place] [address] Felicita Landa APRN [facility] [address] HEMATOLOGY [place] [address] documented as of this encounter Visit Diagnoses Not on filedocumented in this encounter Care Teams Warp Placer Relationship Specialty Start Date End Date Radha Mckeon MD [address] [place] [address] PCP - General 09/23/10 documented as of this encounter
--- OUTSIDE RECORDS SUMMARY | 2024-07-24 17:32 | XMS_ITS | Encounter Summary ---
Author Organization [facility] [address] Care Team Providers Care Zoogler Name Role Phone Radha Mckeon MD Primary Care Provider [phone] Encounter Details Date Type Department Care Team (Late st Contact Info) Description 12/05/2012 Orders Only Cardiology at [address] [phone] Sanford Byrd MD [facility] [place] [address] Atrial fibrillation (Primary Dx) Social History Tobacco Use Types [...] AM EDT Hospital Encounter Non-[place] [address] Arrived 02/22/2025 1:30 PM EDT Appointment Hematology [place] [address] 02/22/2025 2:30 PM EDT Office Visit Hematology [place] [address] Ellis Childers MD [facility] DR HEMATOLOGY AND ONCOLOGY [place], [place] [phone] Felicita Landa APRN [facility] [address] [place] [address] Scheduled Orders Name Type Priority Associated Diagnoses Order Schedule Electrophysiology Procedure Electrophysiology Routine Atrial fibrillation One Time for 1 Occurrences starting 12/06/2012 until 12/06/2012 documented as of this encounter Results * Transesophageal Echocardiogram (VIET) (12/12/2012 9:59 AM EST) EF 65 HEARTLAB SYSTEM Anatomical Region Laterality Modality Other 12/12/2012 Narrative 12/12/2012 12:49 PM EST Procedure: ? Transesophageal Echocardiogram Patient: ? MILY Foreman ? (Age): 1950(62) Med Rec#: ?[id number] ? Sex: ?M ? Site Loc: ?[facility] ? Ht / Wt: ??(cm)/(kg) ? Pt. Loc: ? [employer] ? BSA: ? Study Date: ?12/12/2012 ? Pt. Type: Outpatient Tape: ? Referring: Sanford Byrd Clinical Business Analyst: [employer] Portal Developer: Marcin Victor ([id number]) Interpreting Fellow: Marcin Victor ([id number]) Diagnosis:CPT Code(s): Indication(s):Rhythm: SUMMARY: 1. No thrombus or mass/vegetation was visualized in the left heart. 2. No thrombus is visualized within the left atrium. No clot is noted in the left atrial appendage. 3. There is normal global left ventricular systolic function. ??Ejection fraction is estimated to be 65%. Right ventricular chamber size, wall thickness, and systolic function are within normal limits. 4. There is no hemodynamically significant valve disease. 5. See remainder of report for additional findings. FINDINGS: Left Ventricle ?There is normal global left ventricular systolic function. ??Ejection fraction is estimated to be 65%. ?No thrombus is visualized within the left ventricle. Left Atrium ?There is no evidence of spontaneous echo contrast. ?The left atrial appendage velocity is normal. ?No thrombus is visualized within the left atrium. ?No clot is noted in the left atrial appendage. ?There is no evidence of a patent foramen ovale by color Doppler. Right Ventricle ?Right ventricular chamber size, wall thickness, and systolic function are within normal limits. Right Atrium ?No spontaneous echo contrast is present in the right atrium. ?No thrombus is visualized in the right atrium. Aortic Valve ?The aortic valve is tricuspid. ?There is no evidence of aortic valve thickening. ?Systolic excursion of the aortic valve is normal. ?There is no evidence of aortic valve stenosis. ?There is a trace of aortic regurgitation present. Mitral Valve ?The mitral valve leaflets appear normal. ?The mitral valve leaflets do not appear thickened. ?Mitral valve leaflet mobility appears normal. ?There is no evidence of mitral stenosis. ?There is trace mitral regurgitation present. Tricuspid Valve ?The tricuspid valve leaflets are morphologically normal. ?Tricuspid valve leaflet mobility appears normal. ?There is trace tricuspid regurgitation present. Pulmonic Valve ?The pulmonic valve is probably normal. ?There is no evidence of pulmonic regurgitation. Aorta ?There is evidence of grade 2 (extensive intimal thickening) atheromatous disease of the ascending aorta. ?There is evidence of grade 2 (extensive intimal thickening) atheromatous disease of the aortic arch. ?There is evidence of grade 2 (extensive intimal thickening) atheromatous disease of the descending thoracic aorta. Viet Procedures ?The procedure and risk were explained to the patient who consented to the study. ?The VIET probe was passed by the agile business analyst after the patient was sedated with general anesthesia. Misc ?There is no hemodynamically significant valve disease. ?See remainder of report for additional findings. ?I personally reviewed the images and edited the resident's/fellow's interpretation. This report has been electronically signed by: Jesse Tristan M.D. ? 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 Type: Outpatient Tape: Referring: Sanford Byrd Clinical Business Analyst: [employer] Portal Developer: Marcin Victor ([id number]) Interpreting Fellow: Marcin Victor ([id number]) Diagnosis:CPT Code(s): Indication(s):Rhythm: SUMMARY: 1. No thrombus or mass/vegetation was visualized in the left heart. 2. No thrombus is visualized within the left atrium. No clot is noted in the left atrial appendage. 3. There is normal global left ventricular systolic function. Ejection fraction is estimated to be 65%. Right ventricular chamber size, wall thickness, and systolic function are within normal limits. 4. There is no hemodynamically significant valve disease. 5. See remainder of report for additional findings. FINDINGS: Left Ventricle There is normal global left ventricular systolic function. Ejection fraction is estimated to be 65%. No thrombus is visualized within the left ventricle. Left Atrium There is no evidence of spontaneous echo contrast. The left atrial appendage velocity is normal. No thrombus is visualized within the left atrium. No clot is noted in the left atrial appendage. There is no evidence of a patent foramen ovale by color Doppler. Right Ventricle Right ventricular chamber size, wall thickness, and systolic function are within normal limits. Right Atrium No spontaneous echo contrast is present in the right atrium. No thrombus is visualized in the right atrium. Aortic Valve The aortic valve is tricuspid. There is no evidence of aortic valve thickening. Systolic excursion of the aortic valve is normal. There is no evidence of aortic valve stenosis. There is a trace of aortic regurgitation present. Mitral Valve The mitral valve leaflets appear normal. The mitral valve leaflets do not appear thickened. Mitral valve leaflet mobility appears normal. There is no evidence of mitral stenosis. There is trace mitral regurgitation present. Tricuspid Valve The tricuspid valve leaflets are morphologically normal. Tricuspid valve leaflet mobility appears normal. There is trace tricuspid regurgitation present. Pulmonic Valve The pulmonic valve is probably normal. There is no evidence of pulmonic regurgitation. Aorta There is evidence of grade 2 (extensive intimal thickening) atheromatous disease of the ascending aorta. There is evidence of grade 2 (extensive intimal thickening) atheromatous disease of the aortic arch. There is evidence of grade 2 (extensive intimal thickening) atheromatous disease of the descending thoracic aorta. Viet Procedures The procedure and risk were explained to the patient who consented to the study. The VIET probe was passed by the agile business analyst after the patient was sedated with general anesthesia. Misc There is no hemodynamically significant valve disease. See remainder of report for additional findings. I personally reviewed the images and edited the resident's/fellow's interpretation. This report has been electronically signed by: Jesse Tristan M.D. 12/12/2012 12:49:00 Images reviewed and interpretation verified [facility] Cardiac Ultrasound Laboratory Sanford Byrd MD ECHO ORDERABLES documented in this encounter Visit Diagnoses Diagnosis Atrial fibrillation- Primary Atrial fibrillation documented in this encounter Care Teams Zoogler Relationship Specialty Start Date End Date Radha Mckeon MD [address] [place] [address] PCP - General 09/23/10 documented as of this encounter
--- OUTSIDE RECORDS SUMMARY | 2024-07-24 17:32 | XMS_ITS | Encounter Summary ---
Author Organization [facility] [place] [address] Care Team Providers Care Prefabricated Houses Trimmer Name Role Phone Radha Mckeon MD Primary Care Provider [phone] Encounter Details Date Type Department Care Team (Latest Contact Info) Description 11/28/2012 2:47 PM EST - 11/28/2012 11:59 PM EST Hospital [place] [id number] CLINIC, Sanford James MD [facility] [place] [address] Atrial fibrillation Discharge Disposition: Home Social History [...] Take 2,000 mg by mouth daily. 05/20/2022 dofetilide (TIKOSYN) 500 mcg capsuleIndications:Atri al fibrillation Take 1 capsule by mouth 2 times daily. 60 capsule 6 08/23/2012 12/13/2012 acetaminophen (TYLENOL) 500 mg tabletIndications:heada heriberto disorder,pain Take 1,000 mg by mouth as needed. Indications: Headache Disorder, Pain 11/17/2019 aspirin 325 mg tablet Take 325 mg by mouth daily. 12/16/2012 methadone (DOLOPHINE) 10 mg tablet Take 10 [...] 01/13/2011 02/28/2018 documented as of this encounter Miscellaneous Notes * Miscellaneous - Provider, Scanning - 12/05/2012 8:35 AM EST documented in this encounter Plan of Treatment Upcoming Encounters Date Type Department Care Team (Late st Contact Info) Description 08/18/2024 11:00 AM EDT Hospital Encounter Non-[place] [address] Arrived 02/22/2025 1:30 PM EDT Appointment Hematology [place] [address] 02/22/2025 2:30 PM EDT Office Visit [place]ology [place] [address] Ellis Childers MD [facility] [address] HEMATOLOGY [place] [address] Felicita Landa APRN [facility] [address] HEMATOLOGY [place] [address] documented as of this encounter Procedures Procedure Name Priority Date/Time Associated Diagnosis Comments CT ANGIOGRAM OF CHEST (NON-CORONARY) W CONTRAST Routine 11/28/2012 3:28 PM EST Atrial fibrillation documented in this encounter Results * CTA of Chest (non-coronary) With Contrast (11/28/2012 3:28 PM EST) Anatomical Region Laterality Modality Chest Computed Tomogra phy 11/28/2012 3:28 PM EST Narrative 11/29/2012 11:16 AM EST Examination CTA of Chest With Contrast Clinical History ATRIAL FIBRILLATION PRE OP PVI PLANNING Technique Axial contiguous sections were obtained through the chest via helical acquisition after intravenous contrast administration. ?? Contrast:Omnipaque 350, 110 mL. Post processing performed on an independent computer workstation, including three-dimensional reconstruction. Comparison No priors. Findings Pulmonary vein ostial dimensions as follows: Right superior pulmonary vein: 14mm x 13mm ;ostial branches: None. Right inferior pulmonary vein: 18mm x 17mm ;ostial branches: There is an ostial trifurcation Left superior pulmonary vein: 18mm x 14mm ;ostial branches: None. Left inferior pulmonary vein: 14mm x 14mm ;ostial branches: None. Anatomic variants: None. Accessory pulmonary venous drainage: None. ?? Anomalous pulmonary venous drainage: None. Left atrium: 7.2cm x 3.5cm x 4.7cm Left atrial or atrial appendage filling defects: None. Esophagus relationship to left atrium: The esophagus is midline. Other cardiac structures: No significant findings. Normal contour and caliber of the great vessels. Lungs: No significant findings. Skeletal structures: No significant findings. ?? Multiple calcifications are seen within the liver likely representing prior granulomatous disease. ?? Impression Pulmonary vein dimensions as above. No accessory or anomalous pulmonary vein. No left atrial or appendage filling defect.. Film and interpretation reviewed by the attending Procedure Note Radha Troncoso MD - 11/29/2012 Examination CTA of Chest With Contrast Clinical History ATRIAL FIBRILLATION PRE OP PVI PLANNING Technique Axial contiguous sections were obtained through the chest via helical acquisition after intravenous contrast administration. Contrast:Omnipaque 350, 110 mL. Post processing performed on an independent computer workstation,including three-dimensional reconstruction. Comparison No priors. Findings Pulmonary vein ostial dimensions as follows: Right superior pulmonary vein: 14mm x 13mm ;ostial branches: None. Right inferior pulmonary vein: 18mm x 17mm ;ostial branches: There is anostial trifurcation Left superior pulmonary vein: 18mm x 14mm ;ostial branches: None. Left inferior pulmonary vein: 14mm x 14mm ;ostial branches: None. Anatomic variants: None. Accessory pulmonary venous drainage: None. Anomalous pulmonary venous drainage: None. Left atrium: 7.2cm x 3.5cm x 4.7cm Left atrial or atrial appendage filling defects: None. Esophagus relationship to left atrium: The esophagus is midline. Other cardiac structures: No significant findings. Normal contour and caliber of the great vessels. Lungs: No significant findings. Skeletal structures: No significant findings. Multiple calcifications are seen within the liver likely representingprior granulomatous disease. Impression Pulmonary vein dimensions as above. No accessory or anomalous pulmonary vein. No left atrial or appendage filling defect.. Film and interpretation reviewed by the attending Sanford Byrd MD IMG CT ORDERABLES documented in this encounter Visit Diagnoses Diagnosis Atrial fibrillation documented in this encounter Administered Medications Inactive Administered Medications - up to 3 most recent administrations Medication Order MAR Action Action Date Dose Rate Site iohexol (OMNIPAQUE) 350 mg iodine/mL injection 38,500 mg 38,500 mg (110 mL), Intravenous, ONCE PRN, 1 dose, Starting on Wed11/28/12 at 1508, Until Wed11/28/12 at 1522, Per Protocol, Routine Given 11/28/2012 3:22 PM EST 38,500 mg documented in this encounter Care Teams Prefabricated Houses Trimmer Relationship Specialty Start Date End Date Radha Mckeon MD [address] [place] [address] PCP - General 09/23/10 documented as of this encounter
--- OUTSIDE RECORDS SUMMARY | 2024-07-24 17:32 | XMS_ITS | Encounter Summary ---
Author Organization [facility] [place] [address] Care Team Providers Care Belt Dresser Name Role Phone Radha Mckeon MD Primary Care Provider [phone] Encounter Details Date Type Department Care Team (Latest Contact Info) Description 12/12/2012 6:05 AM EST - 12/13/2012 11:54 AM EST Hospital Encounter [place] [address] Sanford Byrd MD [facility] [place] [address] Atrial fibrillation Discharge Disposition: Home Social History [...] Sign Reading Time Taken Comments Blood Pressure 101/66 12/13/2012 7:14 AM EST Pulse 71 12/13/2012 7:14 AM EST Temperature 36.7 ??C (98.1 ??F) 12/13/2012 7:14 AM ES T Respiratory Rate 18 12/13/2012 7:14 AM EST Oxygen Saturation 94% 12/13/2012 7:14 AM EST Inhaled Oxygen Concentration - - Weight 88 kg (194 lb) 12/12/2012 8:08 PM EST Height 182.9 cm (6') 12/12/2012 8:08 PM EST Body Mass Index 26.31 12/12/2012 8:08 PM EST documented in this encounter Discharge Instructions * Discharge Instructions* Diogo Robb PA - 12/13/2012 10:23 AM EST DISCHARGE INSTRUCTIONS FOLLOWING YOUR ABLATION [...] blood flowing from the catheter insertion area STOP what you are doing and lie down. Hold pressure steadily on the area for fifteen minutes. Call for help. If the bleeding does not stop in fifteen minutes, call 911. If there is rapid swelling with a ???black and blue?? color at the catheter insertion area, there may be bleeding inside. Call your doctor if there is any increase in size. Check the insertion site for the next few days at home. Signs of infection are: Redness Swelling Yellow, white, green or brown, foul smelling drainage Increased soreness If you think there is an infection, [...] of any new medications initiated at the [facility]. The patient should be aware and informed [...] 10 mg by mouth nightly. omeprazole (PRILOSEC) 40 mg capsule Take 1 capsule by mouth daily for 30 days. 30 capsule 0 12/13/2012 01/12/2013 warfarin (COUMADIN) 1 mg tablet Take 1 tablet by mouth every evening. 12/13/2012 12/16/2012 fish oil-omega-3 fatty acids with vitamin E [...] Take 75 mg by mouth daily. 12/18/2014 OXYcodone-acetaminophe n (PERCOCET) 5-325 mg per tablet Take 1 [...] Progress Notes * Diogo Robb PA - 12/13/2012 9:49 AM EST Inpatient Cardiac Electrophysiology Discharge Day Note Patient Name: Malik Machado Service: EP Responsible Attending: Suly Whalen MD Reason for continued hospitalization: Atrial fibrillation; s/p PVI ablation Active Problems: Patient Active Problem List Diagnoses Code ??? Chronic back pain greater than 3 months duration 724.5 ??? Knee pain 719.46 ??? Lumbar radiculopathy 724.4 ??? A-fib 427.31 ??? Hypertension 401.9 ??? 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 S/P knee replacement V43.65 Interval History: 62 yo man with hx of symptomatic PAF(failed flecainide, breakthrough on dofetilide) admitted via same day program for PVI ablation 12/12/2012. The procedure was acutely successful achieving Stage IV electrical isolation despite Carto issues necessitating the procedure to be completed using Navx. Overnight, he slept poorly, mostly due to chronic back pain exacerbated by immobility for the procedure. He has been out of bed ambulating with a walker and although he is uncomfortable due to pain feels this is tolerable. He has received his methadone and baclofen as well as imitrex for migraine. Urinary catheter is still in place and I have asked for this to be removed now. He reports mild superficial chest wall discomfort and exam of his left chest reveals a pattern consistent with anterior Cardioversion pad(he received a single CV shock during the procedure). Review of Systems: Review of Systems Constitutional: Negative for fever, chills, diaphoresis and fatigue. Respiratory: Negative for cough, choking and shortness of breath. Cardiovascular: Negative for palpitations and leg swelling. Genitourinary: Negative for dysuria. Musculoskeletal: Positive for back pain and gait problem. Neurological: Negative for dizziness, syncope and weakness. Telemetry: HR: 60-80 sinus rhythm Meds: Current Facility-Administered Medications Ordered in Epic Medication Dose Route Frequency Provider Last Rate Last Dose ??? SUMAtriptan (IMITREX) tablet 50 mg 50 mg Oral Once Sam Cui MD 50 mg at 12/13/12 0030 ??? morphine 4 mg/mL carpuject 2 mg 2 mg Intravenous Q2H PRN Sam Cui MD 2 mg at 12/13/12 0453 ??? acetaminophen (TYLENOL) tablet 1,000 mg 1,000 mg Oral Q6H PRN Carlos Baptiste MD ??? aspirin tablet 325 mg 325 mg Oral Daily Carlos Baptiste MD 325 mg at 12/12/122152 ??? baclofen (LIORESAL) tablet 10 mg 10 mg Oral Daily Carlos Baptiste MD 10 mg at 12/13/12925 ??? methadone (DOLOPHINE) tablet 10 mg 10 mg Oral BID Carlos Baptiste MD 10 mg at 12/13/12925 ??? metoprolol succinate (TOPROL-XL) XL tablet 50 mg 50 mg Oral Daily Carlos Baptiste MD 50 mg at12/13/12925 ??? OXYcodone-acetaminophen (PERCOCET) 5-325 mg per tablet 1 tablet 1 tablet Oral Q4H PRN Carlos Baptiste MD 1 tablet at 12/12/12 2330 ??? simvastatin (ZOCOR) tablet 10 mg 10 mg Oral Nightly Carlos Baptiste MD 10 mg at 12/12/122155 ??? zolpidem (AMBIEN) tablet 5 mg 5 mg Oral Nightly PRN Carlos Baptiste MD 5 mg at 12/13/12 0128 ??? warfarin (COUMADIN) tablet 1 mg 1 mg Oral QPM Carlos Baptiste MD 1 mg at 12/12/122155 ??? sodium chloride 0.9 % flush 5 mL 5 mL Intravenous Q12H Carlos Baptiste MD 5 mL at 12/13/12 0530 ??? esomeprazole (NEXIUM) capsule 40 mg 40 mg Oral BID Carlos Baptiste MD 40 mg at 12/13/12 0926 ??? methadone (DOLOPHINE) tablet 10 mg 10 mg Oral Once Sam Cui MD 10 mg at 12/12/12 1800 ??? promethazine (PHENERGAN) 25 mg/mL injection ??? ondansetron (ZOFRAN) 4 mg/2 mL injection ??? warfarin (COUMADIN) daily order reminder Oral Q24H Carlos Baptiste MD ??? DISCONTD: sodium chloride 0.9 % flush 5 mL 5 mL Intravenous Q12H Sanford Byrd MD ??? DISCONTD: sodium chloride 0.9% infusion 1,000 mL Intravenous Continuous Cullen Gutierres MD ??? DISCONTD: adenosine (diagnostic) (ADENOSCAN) infusion 6-48 mg 6-48 mg Intravenous Q1 Min PRN Sanford Byrd MD 6 mg at 12/12/12 1605 ? ? DISCONTD: DOBUTamine 2,000 mcg/mL (standard ADULT & Yudith greater than 20kg) 5- 50 mcg/kg/minIntravenous Continuous Sanford Byrd MD ??? DISCONTD: heparin (porcine) injection 1,000-10,000 Units 1,000-10,000 Units Intravenous 4 TimesDaily PRN Sanford Byrd MD 7,500 Units at 12/12/12 1217 ??? DISCONTD: heparin 25,000 units in dextrose 5% 500 mL infusion 500-2,000 Units/hr Intravenous Continuous Sanford Byrd MD ??? DISCONTD: isoproterenol (ISUPREL) 1 mg in sodium chloride 0.9% 250 mL infusion (EP lab) 1-20 mcg/min Intravenous Continuous PRN Sanford Byrd MD 20 mcg/min at 12/12/12 1551 ??? DISCONTD: protamine injection 5-50 mg 5-50 mg Intravenous BID PRN Sanford Byrd MD 25 mg at 12/12/12 1611 ??? DISCONTD: fentaNYL 50mcg/mL injection 25-50 mcg Intravenous Q5 Min PRN Cullen Gutierres MD 50 mcg at 12/12/12 1748 ??? DISCONTD: HYDROmorphone (DILAUDID) injection 0.2-0.4 mg 0.2-0.4 mg Intravenous Q5 Min PRN Cullen Gutierres MD ??? DISCONTD: naloxone (NARCAN) injection 40 mcg 40 mcg Intravenous Q5 Min PRN Cullen Gutierres MD ??? DISCONTD: ondansetron (ZOFRAN) injection 4 mg 4 mg Intravenous Q30 Min PRN Cullen Gutierres MD4 mg at 12/12/121941 No current [facility] outpatient prescriptions on file. Physical Exam: Vital Signs: Last value Range last 8 hrs Temperature Temp: 36.7 ??C (98.1 ??F) Temp: [36.7 ??C (98.1 ??F)-37 ??C (98.6 ??F)] Heart Rate Heart Rate: 71 Heart Rate: [71-72] Blood Pressure BP: 101/66 mmHg BP: (101-105)/(66-72) Respiratory Rate Resp: 18 Resp: [18-20] SpO2 SpO2: 94 % SpO2: [92 %-94 %] Physical Exam Nursing note and vitals reviewed. Constitutional: He is oriented to person, place, and time. He appears distressed. Neck: No JVD present. Cardiovascular: Normal rate, regular rhythm and normal heart sounds. Pulmonary/Chest: Effort normal and breath sounds normal. Abdominal: Soft. Musculoskeletal: He exhibits tenderness. He exhibits no edema. Lumbar back: He exhibits pain. Neurological: He is alert and oriented to person, place, and time. Skin: He is not diaphoretic. There is pallor. Lab Comments: Recent Results (from the past 24 hour(s)) PROTHROMBIN TIME Component Value Range PT 25.0 (*) 11.9 - 14.7 (sec) INR 2.2 (*) 0.9 - 1.1 Pertinent Radiographic/Diagnostic Results: ELECTROPHYSIOLOGY PROCEDURE: 12/12/2012 Pulmonary Vein Antral Isolation, DCCV ACCESS: 8Fr Right IJ 11Fr and 8 Fr Right Femoral Vein 11Fr and 5.5 Fr Left Femoral Vein 4Fr Left Femoral Artery (for BP monitoring) Anesthesia: General Findings: RPVs most likely cause of arrhythmia Assessment: Malik Machado is a 62 y.o. male with recurrent symptomatic atrial fibrillation who failed flecainide and had breakthrough on dofetilide and is now POD#1 PVI ablation. Plan: 1. Dofetilide discontinued; continue metoprolol 2. Continue coumadin - INR therapeutic today @ 2.2 3. Topical hydrocortisone to anterior chest PRN 4. Continue chronic pain medications 5. Will schedule for follow up in three months with Dr. Byrd; Zio patch prior to visit Provider: ANDREE Shelley Provider#: [id number] Consult attending physician: Cynthia Byrd MD * Janae Hill RN - 12/12/2012 5:07 PM EST Pt arrived without pain, but c/o thirst. documented in this encounter H&P Notes * Carlos Baptiste MD - 12/12/2012 7:24 AM EST Preprocedural H+P Patient presents for atrial fibrillation ablation. He has a history of afib for several years, including three cardioversions in the past. He's been on Tikosyn 500mg BID since 2007, which he stopped on Wednesday in preparation for this procedure. He was also recently started on warfarin. He hasn't hadany afib since in the office on 11/15/2012 (see that note for full H+P), but when he has gotten afibrecently it's been with symptoms of tachycardia and chest pressure, but no dyspnea lightheadedness or chest pounding. He had a fall on December 02 with some R rib pain, but CXR revealed no fractures. He also had a cough/cold a week or so ago, with some fevers, but has been well since the middle of last week. He currently denies chest pain, dyspnea, edema, lightheadedness, no history of syncope (except [place] [employer] for 3 hours once). He has chronic back pain and numbness/tingling of hisleft leg. PMH Atrial Fibrillation Arthritis Chronic back pain Echo 2006 EF 60% Filed Vitals: 12/12/12 0636 BP: 149/85 Pulse: 62 Temp: 36.8 ??C (98.2 ??F) Resp: 14 Alert, oriented, NAD Neck veins flat Heart regular no MRG Lungs clear No ankle edema 2+ DP bilat Recent Results (from the past 24 hour(s)) PROTHROMBIN TIME Component Value Range PT 22.0 (*) 11.9 - 14.7 (sec) INR 1.9 (*) 0.9 - 1.1 CBC (WITH DIFF) Component Value Range WBC 5.3 4.0 - 10.0 (x10(3)/mcL) RBC 4.72 4.63 - 6.08 (x10(6)/mcL) Hemoglobin 14.7 13.7 - 17.5 (gm/dL) Hematocrit 42.5 40.0 - 51.0 (%) MCV 90.0 79.0 - 92.0 (fL) MCH 31.1 25.6 - 32.2 (pg) MCHC 34.6 32.0 - 36.5 (gm/dL) Platelets 139 (*) 145 - 370 (x10(3)/mcL) RDWSD 38.7 35.0 - 46.0 (fL) RDWCV 11.8 10.9 - 14.4 (%) MPV 11.6 9.0 - 12.0 (fL) BMP W/FASTING GLUCOSE Component Value Range Glucose Fasting 95 65 - 99 (mg/dL) BUN 23 (*) 10 - 20 (mg/dL) Creatinine 0.76 (*) 0.80 - 1.50 (mg/dL) Sodium 140 135 - 145 (mmol/L) Potassium 4.1 3.5 - 5.0 (mmol/L) Chloride 105 98 - 107 (mmol/L) CO2 28 22 - 31 (mmol/L) Anion Gap 7 5 - 15 (mmol/L) Calcium 9.2 8.5 - 10.5 (mg/dL) Estimated GFR >60 >=60 DIFFERENTIAL, AUTOMATED Component Value Range Neutrophils % 53.9 34.0 - 71.0 (%) Neutr Abs (ANC) 2.85 1.50 - 6.30 (x10(3)/mcL) Lymphocytes % 30.8 19.0 - 53.0 (%) Lymphocytes Abs 1.6 1.0 - 3.6 (x10(3)/mcL) Monocytes % 13.0 4.0 - 13.0 (%) Monocyte Abs 0.7 0.2 - 1.0 (x10(3)/mcL) Eosinophils % 1.9 0.0 - 7.0 (%) Eosinophils Abs 0.1 0.0 - 0.5 (x10(3)/mcL) Basophils % 0.2 0.0 - 2.0 (%) Basophils Abs 0.0 0.0 - 0.2 (x10(3)/mcL) Immature Gran % 0.20 0.00 - 0.66 (%) Sho Gran Abs 0.01 0.00 - 0.05 (x10(3)/mcL) ABORH TYPE MANUAL Component Value Range Specimen OD [id number] ABORh Type O Pos ANTIBODY SCREEN MANUAL Component Value Range AB Screen Interp Negative EKG NSR 60bpm RBBB with left axis deviation A/P: 62 male with history of afib, also recent atrial tachycardia here for PVI. Ready to proceed. documented in this encounter Procedure Notes * Provider, Scanning - 12/14/2012 11:02 AM ESTAssociated Order(s): SCAN DOC: CERTIFIED PHYSICIAN ASSISTANT * Provider, Scanning - 12/14/2012 11:02 AM ESTAssociated Order(s): SCAN DOC: CERTIFIED PHYSICIAN ASSISTANT documented in this encounter Miscellaneous Notes * Miscellaneous - Provider, Scanning - 12/27/2012 12:29 PM EST * Miscellaneous - Provider, Scanning - 12/14/2012 11:02 AM EST * Miscellaneous - Provider, Scanning - 12/14/2012 11:02 AM EST * Discharge Summary - Diogo Robb PA - 12/13/2012 10:23 AM EST Physician Discharge Summary Patient Name: Malik Machado Patient Age: 62 y.o. Birthdate: 1950 Admit date: 12/12/2012 Discharge date and time: 12/13/2012 1100 Attending Physician: Sanford Byrd MD Discharge Physician: Cynthia Byrd MD Discharge Diagnoses (Hospital Problems) and Secondary Diagnoses (Chronic Problems): There are no hospital problems to display for this patient. Active Non-Hospital Problems Diagnoses ??? S/P knee replacement SURGERY DATE: 01/14/2010 MICHAEL CHAVEZ MD PROCEDURE PERFORMED: Right total knee arthroplasty. IMPLANTS USED: All implants were from the [employer] total knee system. 1. A size 4 [...] 12/12/2012(procedure complicated by carto problem, completed withNavx) ??? Hypertension ??? RBBB (right bundle branch block with left anterior fascicular block) ??? Lumbar radiculopathy ??? Chronic back pain greater than 3 months duration On methadone and baclofen ??? Knee pain Admission Diagnoses: AFIB Discharge Diagnoses: Atrial fibrillation; now POD#1 PVI ablation Admission Condition: fair Discharged Condition: fair Indication for Admission: Recurrent, symptomatic atrial fibrillation Hospital Course: 62 yo man with hx of symptomatic PAF(failed flecainide, breakthrough on dofetilide) admitted via same day program for PVI ablation 12/12/2012. The procedure was acutely successful achieving Stage IV electrical isolation despite Carto issues necessitating the procedure to be completed using Navx. Overnight, he slept poorly, mostly due to chronic back pain exacerbated by immobility for the procedure. He has been out of bed ambulating with a walker and although he is uncomfortable due to pain feels this is tolerable. He has received his methadone and baclofen as well as imitrex for migraine. He reports mild superficial chest wall discomfort and exam of his left chest reveals a pattern consistent with anterior Cardioversion pad(he received a single CV shock during the procedure). His INR today is therapeutic at 2.2. He is felt to be stable for discharge to home today. Treatments: procedures: PVI ablation 12/12/2012 Discharge Exam: Skin: Pale, warm and dry HEENT: PERRLA, EOMI, non-icteric sclera, no JVD Chest: superficial lesion(c/w burn) in pattern of anterior defib pad Cardiac: Regular rate and rhythm; heart rate 72; no murmur, rubs or gallop Respiratory: Lungs clear to auscultation; no adventitious sounds ABD: soft, non-tender Peripheral vascular: no edema, cyanosis Neuro: A & O X 3; cranial nerves grossly intact; NIEVES Disposition: home Discharge Medications: Current Discharge Medication List New Meds Dose Details warfarin (COUMADIN) 1 mg 1 mg Take 1 mg by mouth every evening. omeprazole (PRILOSEC) 40 mg 40 mg Take 40 mg by mouth daily. Qty: 30 capsule Refills: 0 Continued medications, unchanged Dose Details MULTIVITAMIN W-MINERALS/LUTEIN (CENTRUM SILVER ORAL) Take by mouth. [place]-3 Fatty Acids-Vitamin E 1,000 mg 1,000 mg Take 1,000 mg by mouth 2 times daily. acetaminophen (TYLENOL) 1,000 mg 1,000 mg Take 1,000 mg by mouth every 6 hours as needed. aspirin 325 mg 325 mg Take 325 mg by mouth daily. baclofen (LIORESAL) 10 mg 10 mg Take 10 mg by mouth daily. methadone (DOLOPHINE) 10 mg 10 mg Take 10 mg by mouth 2 times daily. metoprolol succinate (TOPROL-XL) 50 mg 50 mg Take 50 mg by mouth daily. OXYcodone-acetaminophen (PERCOCET) 1 tablet 1 tablet Take 1 tablet by mouth every 4 hours as needed. simvastatin (ZOCOR) 10 mg 10 mg Take 10 mg by mouth nightly. glucosamine-chondroitin 500-400 mg tablet SUMAtriptan (IMITREX) 100 mg 100 mg Take 100 mg by mouth as needed. zolpidem (AMBIEN) 5 mg 5 mg Take 5 mg by mouth nightly as needed. 1 to 2 tabs hs prn Medications STOPPED Dose dofetilide (TIKOSYN) 500 mcg 500 mcg Updated Allergies/ADRs: Allergies Allergen Reactions ??? Amitriptyline Hcl Palpitations Follow-up Recommendations for Providers: 1. Discontinued dofetilide 2. Continue metoprolol 3. Continue coumadin to maintain INR 2.0-3.0 4. Add Prilosec 40mg once daily for 30 days post procedure to decrease risk of erosive esophagitis 5. Plan follow up in three months with Dr. Byrd Instructions Given to Patient at Discharge: Provider Instructions None General Instructions DISCHARGE INSTRUCTIONS FOLLOWING YOUR ABLATION 1. [...] blood flowing from the catheter insertion area 1. STOP what you are doing and lie down. 2. Hold pressure steadily on the area for fifteen minutes. 3. Call for help. 4. If the bleeding does not stop in fifteen minutes, call 911. 5. If there is rapid swelling with a ???black and blue?? color at the catheter insertion area, there may be bleeding inside. Call your doctor if there is any increase in size. Check the insertion site for the next few days at home. Signs of infection are: 6. Redness 7. Swelling 8. Yellow, white, green or brown, foul smelling drainage 9. Increased soreness 10. If you think there is an infection, [...] of any new medications initiated at the [facility]. The patient should be aware and informed [...] his/her physician or the Cardiac Electrophysiology Service. Future Appointments and Orders Future Appointments: Provider: Department: Dept Phone: Center: 02/02/2013 10:50 AM ANDREE [facility] [phone] None Joint Appt Health Question [facility] [phone] None Future Orders Please Complete By Expires Type and screen [TNI406 Custom] 12/18/12 12/11/13 Process Instructions: If the patient is less than 6 months of age, order a Type and Screen ([id number]) Scheduling Instructions: Comments: Questions: Responses: Should this service/procedure be billed to the research sponsor? Provider Contact Information: Cardiac Electrophysiology [phone] Discharge References/Attachments: Discharge References/Attachments None For questions regarding this document or issues relating to this hospitalization on the Cardiac Electrophysiology Service, please contact your inpatient physician through the [employer] . Issues after hours and on weekends will be handled by the Cardiology Hospitalist staff on-call. Signed: ANDREE HALL 12/13/2012 10:23 AM * Brief Op Note - Carlos Baptiste MD - 12/12/2012 4:51 PM EST Brief Operative Note Patient Name: Malik Machado : [id number] MR#: [id number] Case Date: 12/12/2012 Surgeon: Surgeon(s) and Role: * Sanford Byrd MD - Primary * Carlos Baptiste MD - Resident-Plumbing Mechanic Preoperative diagnosis: AFIB Postoperative diagnosis: AFIB Procedure(s): ELECTROPHYSIOLOGY PROCEDURE: Pulmonary Vein Antral Isolation, DCCV ACCESS: 8Fr Right IJ 11Fr and 8 Fr Right Femoral Vein 11Fr and 5.5 Fr Left Femoral Vein 4Fr Left Femoral Artery (for BP monitoring) Anesthesia: General Findings: RPVs most likely cause of arrhythmia Complications: none Fluids: 3.2in/2.1out Estimated Blood Loss: <10cc Drains: none Disposition: to PACU Condition: doing well without problems (Please see the Surgical Encounter Summary for any Implant and Specimen details pertinent to this patient.) * Miscellaneous - Provider, Scanning - 12/12/2012 6:24 AM EST documented in this encounter Plan of Treatment Upcoming Encounters Date Type Department Care Team (Late st Contact Info) Description 08/18/2024 11:00 AM EDT Hospital Encounter [place] [address] Arrived 02/22/2025 1:30 PM EDT Appointment Hematology [place]cology [place] [address] 02/22/2025 2:30 PM EDT Office Visit [facility] at [facility] [place] [address] Ellis Childers MD [facility] [place] [address] Felicita Landa APRN [facility] [place] [address] documented as of this encounter Procedures Procedure Name Priority Date/Time Associated Diagnosis Comments CERTIFIED PHYSICIAN ASSISTANT SCAN 12/14/2012 11:02 AM EST CERTIFIED PHYSICIAN ASSISTANT SCAN 12/14/2012 11:02 AM EST PROTHROMBIN TIME Routine 12/13/2012 5:54 AM EST ELECTROPHYSIOLOGY PROCEDURE Routine 12/12/2012 4:53 PM EST Atrial fibrillation ELECTROPHYSIOLOGY PROCEDURE 12/12/2012 7:45 AM EST Atrial fibrillation EKG 12-LEAD STAT 12/12/2012 7:29 AM EST Atrial fibrillation ANTIBODY SCREEN MANUAL STAT 3 6:20 AM EST ABORH TYPE MANUAL STAT 12/12/2012 6:2 0 AM EST BMP W/FASTING GLUCOSE STAT 12/12/2012 6:20 AM EST Atrial fibrillation DIFFERENTIAL, AUTOMATED STAT 12/12/19 13 6:20 AM EST PROTHROMBIN TIME STAT 12/12/2012 6:20 AM EST Atrial fibrillation CBC (WITH DIFF) STAT 12/12/2012 6:20 AM EST Atrial fibrillation documented in this encounter Results * SCAN DOC: CERTIFIED PHYSICIAN ASSISTANT (12/14/2012 11:02 AM EST) Anatomical Region Laterality Modality Other Narrative Transcriptions Provider, Scanning - 12/14/2012 11:02 AM EST Scanning Provider MEDIA MGR SCAN EXT O RDR/RSLT * SCAN DOC: CERTIFIED PHYSICIAN ASSISTANT (12/14/2012 11:02 AM EST) Anatomical Region Laterality Modality Other Narrative Transcriptions Provider, Scanning - 12/14/2012 11:02 AM EST Scanning Provider MEDIA MGR SCAN EXT O RDR/RSLT * (ABNORMAL) Prothrombin Time (12/13/2012 5:54 AM EST) Prothrombin Time 25.0(H) 11.9 - 14.7 sec HELEN ROTH Comment: [facility] Transfusion Committee Guidelines: INR less than 2.0, PTT less than OR equal to 43.5 seconds, or Fibrinogen greater than or equal to 100 mg/dl indicate adequate procoagulant activity for hemostasis in patients without underlying bleeding disorders. International Normalization Ratio 2.2(H) 0.9 - 1.1 HELEN ROTH Blood specimen (specimen) 12/13/2012 5:54 AM EST 12/13/2012 6:00 AM EST Narrative Resulting Agency Comment Spec In Lab Sam Cui MD HEMATOLOGY ORDERABLE S [facility] * Electrophysiology Procedure (12/12/2012 4:53 PM EST) Anatomical Region Laterality Modality Other Narrative 01/01/2013 7:35 PM EST Electrical Isolation of Pulmonary Veins (Atrial Fibrillation Radiofrequency Ablation): Electrophysiology Study, Transseptal Left Atrial Assessment x 2, ??3-Dimensional CT Rendering, Intracardiac Echo Imaging, 3-Dimensional Intracardiac Mapping (CARTO + CARTO-Sound failed, reverted to Velocity Jt-X), Selective Pulmonary Venography Operators: ? Carlos Baptiste MD, and Sanford Byrd MD Indication: ?Symptomatic atrial fibrillation Method: ?The patient discontinued dofetilide several days prior to this procedure. The procedural attending personally reviewed the nature of the procedure, procedural goals, and associated risks and limitations of the planned intervention with the patient. He was reminded of anticoagulation plans post-procedure. Other post-procedure issues also were reviewed, such as pericarditis, post-procedure atrial fibrillation related to inflammation in pericarditis, bleeding and thrombus issues, etc. All of his questions were answered. After confirmation of his informed consent, the patient was brought to the biplane Electrophysiology Laboratory in the fasting state. A time out was accomplished. Continuous electrocardiographic monitoring was instituted, and a transesophageal echocardiogram was accomplished (no left atrial thrombus). General anesthesia and airway management were accomplished by the Anesthesiology Service. His INR was 1.9 at the time of the procedure. Both femoral regions and the right base of the neck were prepared and draped in the usual sterile manner. Local anesthesia was achieved with a 2:3 mixture of 2% lidocaine and 0.5% bupivacaine administered subcutaneously. Using ultrasound venography for guidance, the following hemostatic sheaths (all with sidearms and flushed) were inserted utilizing a modified Seldinger technique. Electrode catheters were positioned under fluoroscopic guidance as follows: Sheath ?Catheter ?? Electrodes ? Insertion Site ? Target ?8 Fr ?6F ? 10 ? Rt internal jugular ??Coronary sinus (CS) ?8 Fr SL1 ?7F ? 20 (Spiral) ?? Rt femoral vein ?Pulmonary veins 11.5 Fr (Agilis) 8F ?4 ? Rt femoral vein ?Left atrium ?? 11 Fr ? ICE ? Lf femoral vein ?Right atrium ??5.5 Fr ?5F ? 10 ? Lf femoral vein ?His region ?? ... esophageal lead w/ 2 cm bipole (used to assess timing of left atrial posterior wall activation) Total Fluoroscopy Time: 29.8 + 30.5 minutes, low intensity setting, biplane fluoroscopy; cumulative 272 + 247 mGy; DAP 3267 + 3437 cGy.cm2 At the conclusion of left atrial ablation and follow up provocative testing, catheters and sheaths were removed, and hemostasis was achieved via manual compression (following administration of a total of 25 mg of protamine). The patient tolerated the procedure well, with no apparent acute complications. He was transferred to the recovery area in stable condition. Baseline Assessment: 1) Baseline rhythm was sinus rhythm at a cycle length of 1111 ms: OH: ?171 ms AH: ? 71 ms HV: ? 51 ms QRS: ?? 141 ms (right bundle branch block) QT: ?481 ms 2) Atrial overdrive pacing was accomplished from the coronary sinus (CS), and the AV Wenckebach block cycle length was observed at 400 ms. There was no pre-excitation or conduction aberrancy identified. The ofiatgiz-dz-[id number] < QRS-QRS just prior to the observed AV Wenckebach block cycle length, and no echo beats were elicited in this manner. Atrial extrastimulus testing with an S1 cycle length (CL) of 600 ms revealed no discrete dual AV node physiology, but an echo beat or atrial re-entrant beat was elicited at an S2 coupling interval of 300 ms. ??The AV node effective refractory period was 270 ms. Rapid atrial pacing from the proximal coronary sinus down to 220 ms elicited nonsustained atrial reentry. 3) Pacing was accomplished from the high septal aspect of the right ventricle near the His bundle. Concentric ventriculo-atrial (VA) conduction was observed at a pacing rate of 400 ms. Of note, His bundle pacing resulted in loss of the right bundle branch block, and narrowing of the main QRS complex to 85-90 ms. 4) A 6 mg test bolus of adenosine was administered without obvious effect on the patient's rhythm or ventilatory parameters (no obvious AH prolongation, AV block, or change in ventilatory pressures). An 18 mg bolus of adenosine was administered next; transient AV conduction delay was observed; again there was no apparent impact on ventilatory parameters. The sinus rate subsequently increased to 77/min. 5) Isoproterenol was infused at a rate of 5 mcg/min, and over several minutes was increased to an infusion rate of 20 mcg/min (heart rate increased to 80/min). A 30 mg adenosine bolus was administered; this resulted in transient AV conduction delay and sinus rate slowing. No sustained tachyarrhythmias were elicited in this manner; his sinus rate subsequently increased to 111/min. The isoproterenol infusion was discontinued. 6) As the isoproterenol effect dissipated, rapid atrial pacing again was accomplished; after pacing into to a CL of 200 ms, nonsustained re-entry was elicited; at a shorter CL, atrial fibrillation (AF) was initiated. Left Atrial Mapping via Intracardiac Echocardiography (CARTO-Sound): Following baseline assessment, the intracardiac echocardiography catheter ([email or web address]) was to utilized to create a left atrial geometry within CARTO-Sound. Unfortunately, the CARTO system failed, and repeated attempts over 2 hours to bring it up failed. Instead, CARTO-Sound then was abandoned, and the CARTO mapping system was replaced by the Velocity mapping system. Access to the left atrium was obtained next. Transeptal Access: The short 8 Lao sheaths in the right femoral vein were replaced with long sheaths as follows: An 8 Fr SL1 transeptal sheath tip was placed in the superior vena cava over a guidewire, and the guidewire was exchanged for a Brockenbrough needle (BRK tip). Along with administration of a 7500 unit heparin bolus, the tip of the sheath was positioned at the low middle aspect of the foramen ovalis ('tenting of the fossa') and the needle advanced in the left atrium guided by ICE imaging. The dilator and sheath were then advanced over the needle, and the position was confirmed fluoroscopically with approximately a 5 cc Omnipaque injection into the left atrial chamber (and a blood sample sample was obtained, with the oxygen saturation noted at 98.4%). The left atrial pressure was assessed via the sheath side arm pressure column, and was 9 cm [place]; the right atrial pressure at that time was 7 mm Hg. A variable dodecapolar Spiral catheter later was inserted via this SL1 sheath and cautiously advanced into the left atrium for use in mapping the pulmonary veins. A continuous heparin infusion was deferred, given the patient's therapeutic INR. An 11.[address] Ian 'Agilis' short curl steerable transeptal sheath next was advanced across the fossa via a separate lower and more anterior septal access site utilizing similar technique as was used with the SL1 sheath. The left atrial pressure was assessed via the sheath side arm pressure column, and was 8 cm [place]; the right atrial pressure at that time was 7 mm Hg. A blood sample was obtained (with the oxygen saturation noted at 97.78%). The dilator and needle were then removed and replaced with an 3.5 mm tip Cerevast Therapeuticssius D-curve catheter (?), which was positioned in the left atrium for subsequent mapping and ablation. Activated Clotting Times (ACTs) were assessed regularly after entry into the left atrium, heparin boluses were given to maintain the ACT in the range 300-400 seconds. Both transseptal femoral sheaths received continuous heparinized saline flush (10,000 units/liter). Left Atrial Anatomy and Mapping: The left atrial catheter positions were monitored frequently throughout the procedure via intracardiac echo imaging using the [email or web address] catheter. This also was employed during radiofrequency (RF) delivery to observe catheter location and to watch for the emergence of significant echo bubble formation in the vascular space, or other indicators for thrombus formation potential. The pulmonary veins and the pericardial space were surveyed at the end of the procedure prior to catheter removal, with no significant effusion identified (unchanged from initial ICE imaging). The location of the esophagus was identified via ICE, and correlated to fluoroscopic views. Selective (left common, right upper and right lower) pulmonary cinevenography was accomplished using ~15 cc of saline-diluted Omnipaque contrast (each) via the Agilis sheath for additional visual guidance in delineating the os/antrum for the pulmonary veins, and for determining ablation targets. The total contrast amount employed during this case was <100 cc, and any remaining contrast of the 100 cc total deployed was discarded. A CARTO Biosense Celsius D-curve 8 Fr ablation catheter with deflectable 3.5 mm tip was positioned in the left atrium for mapping and ablation via the Agilis sheath. Using high resolution contrast CT images obtained prior to this procedure, a 3-dimensional anatomic reconstruction of the left atrium and pulmonary veins was accomplished; this was then used to guide creation of a 3-dimensional left atrial volume using the Velocity system. ?? Programmed electrical stimulation, Jt-X 3-dimensional mapping, and radiofrequency ablation were performed as detailed below and digitally archived. During certain periods of pulmonary vein mapping, pulmonary vein, coronary sinus and right atrial pacing were performed to help determine atrial and pulmonary vein components of the potential recorded from near the atrial-PV junctions. Radiofrequency Ablation in the Left Atrium: There were five pulmonary veins (there was a small right middle pulmonary vein). Signals were sampled from each of the major pulmonary veins, and electrical connections confirmed (activation patterns assessed in conjunction with pacing from multiple sites). The posterior aspect of the antrum for the right pulmonary veins was targeted first for ablation during persisting atrial fibrillation (AF). Right Upper Pulmonary Vein (RUPV) Right Middle Pulmonary Vein (RMPV) Right Lower Pulmonary Vein (RLPV) The Spiral catheter loop was inserted into the proximal RUPV, and subsequently it also was positioned within the proximal RLPV. Atrial-side radiofrequency power delivery was accomplished and maintained at 15-30 enamorado away from the posterior wall of the atrium; posteriorly we used continuous unidirectional motion of the catheter tip and limited the power delivery to 20 enamorado (the catheter tip temperature was predominantly maintained at <39 C degrees). The lesion trajectory was circumferential around both right pulmonary veins together, starting at the high posterior antral margin and continuing inferiorly, then around the inferior antrum of the RLPV, and continuing up superiorly along the septum. Roofline ablation was then performed segmentally to connect the posterior and anterior trajectories, and entrance block to the right pulmonary veins was achieved. Prior to achieving entrance block, the AF reverted to a flutter rhythm, and then while ablating at the superior segment, sinus rhythm emerged. No dissociated slow spontaneous electrical activity (SSEA) was observed initially, but subsequently emerged at a rate of 20/min. A 24 mg adenosine bolus was administered, with subsequent transient AV conduction block and mild sinus rate slowing; no transient recovery of conduction into the right pulmonary vein antrum (RPVA) either during or after the manifest adenosine effect was observed; SSEA was suppressed. Left Upper Pulmonary Vein (LUPV) Left Lower Pulmonary Vein (LLPV) The Spiral loop was positioned within the proximal aspect of the LUPV. Atrial-side radiofrequency power delivery was accomplished and maintained at 15-35 enamorado away from the posterior wall of the atrium (the catheter tip temperature was predominantly maintained at <39 C degrees). The posterior margin of the antrum was ablated using 15-20 enamorado and constant unidirectional catheter tip motion. A circumferential ablation around the margins of the antrum to the left pulmonary veins was completed, starting from the low antral margin inferior to the LLPV and continuing up along the posterior wall, then again starting at the low antral margin and continuing up along the anterior ridge and the roof. Entrance block to the left pulmonary veins was achieved even before completion of the circumfirential trajectory (with substantial portion of the anterior segment yet to be ablated - the ablation trajectory nonetheless was completed). A 24 mg adenosine bolus was administered, with subsequent transient AV conduction block and mild sinus rate slowing; no transient recovery of conduction into the left pulmonary vein antrum (LPVA) either during or after the manifest adenosine effect was observed; no dissociated slow spontaneous electrical activity was observed. Pulmonary Vein Reassessments Next, the Spiral loop was used to assess for any recurrence of conduction into either of the right pulmonary veins ~40 minutes after acute electrical isolation had been achieved. The Spiral loop was positioned within the proximal RPV; no recovered segment of conduction was observed ~60 minutes after acute electrical isolation had been achieved. High output pacing (25 mA @ 2 ms) within the RPVA elicited local capture and exit block was confirmed. No SSEA was observed within the right pulmonary veins at this time. A 24 mg adenosine bolus was administered; this resulted in transient AV conduction block and sinus rate slowing, without transient recovery of inward conduction either during or after the described manifest adenosine effect. Next, isoproterenol was infused at a dose of 20 mcg/min during vigilant monitoring of the patient's hemodynamic status. Sinus rhythm at a rate of 145/min was observed in response to this, and SSEA again was present. A 36 mg adenosine bolus was administered, resulting in transient marked sinus rate slowing (but without AV conduction block) and transient suppression of the SSEA; no transient recovery of conduction into that vessel either during (or after) manifest adenosine effect was observed. The Spiral loop was positioned next within the LPV, and SSEA was present in this region, too. A 36 mg adenosine bolus was administered; this resulted in transient AV conduction block and sinus rate slowing, without transient recovery of inward conduction either during or after the described manifest adenosine effect. The isoproterenol infusion was discontinued. High output pacing within the LPVA elicited local capture and exit block was confirmed. With the isoproterenol effect only starting to wane, rapid atrial pacing down to a CL of 180 ms elicited a few re-entrant beats. Pacing to a CL of 160 ms elicited AF that persisted for 15 minutes, prior to a successful direct current cardioversion (biphasic, synchronized, 120 joules, external AP vector). Catheters and sheaths already had been withdrawn back into the right atrium prior to this cardioversion. Results: 1) Successful acute electrical isolation of all the pulmonary veins was achieved (right and left pulmonary antral isolation, without carinal ablation). Transient acute reconnections could not be elicited chemically at the conclusion of the procedure following the acute electrical isolations. Very limited radiofrequency current was delivered along the posterior ablation trajectories, located adjacent to the esophagus. 2) Preserved AV node conduction, right bundle branch block (eliminated during His bundle pacing). 3) No evidence of an accessory pathway. ? Dr. Byrd was present, and participated in all boyd aspects of this procedure; he personally reviewed the archived signals, and produced this report. Procedure Note Sanford Byrd MD - 01/01/2013 Electrical Isolation of Pulmonary Veins (Atrial FibrillationRadiofrequency Ablation): Electrophysiology Study, Transseptal Left AtrialAssessment x 2, 3-Dimensional CT Rendering, Intracardiac Echo Imaging,3-Dimensional Intracardiac Mapping (CARTO + CARTO-Sound failed, revertedto Velocity Jt-X), Selective Pulmonary Venography Operators: Carlos Baptiste MD, and Sanford Byrd MD Indication: Symptomatic atrial fibrillation Method: The patient discontinued dofetilide several days prior tothis procedure. The procedural attending personally reviewed the nature ofthe procedure, procedural goals, and associated risks and limitations ofthe planned intervention with the patient. He was reminded ofanticoagulation plans post-procedure. Other post- procedure issues alsowere reviewed, such as pericarditis, post-procedure atrial fibrillationrelated to inflammation in pericarditis, bleeding and thrombus issues,etc. All of his questions were answered. After confirmation of his informed consent, the patient was brought to [facility] in the fasting state. A time outwas accomplished. Continuous electrocardiographic monitoring wasinstituted, and a transesophageal echocardiogram was accomplished (no leftatrial thrombus). General anesthesia and airway management wereaccomplished by the Anesthesiology Service. His INR was 1.9 at the time ofthe procedure. Both femoral regions and the right base of the neck were prepared anddraped in the usual sterile manner. Local anesthesia was achieved with a2:3 mixture of 2% lidocaine and 0.5% bupivacaine administeredsubcutaneously. Using ultrasound venography for guidance, the followinghemostatic sheaths (all with sidearms and flushed) were inserted utilizinga modified Seldinger technique. Electrode catheters were positioned underfluoroscopic guidance as follows: Sheath Catheter Electrodes Insertion Site Target 8 Fr 6F 10 Rt internal jugular Coronary sinus (CS) 8 Fr SL1 7F 20 (Spiral) Rt femoral vein Pulmonaryveins 11.5 Fr (Agilis) 8F 4 Rt femoral vein Left atrium 11 Fr ICE Lf femoral vein Right atrium 5.5 Fr 5F 10 Lf femoral vein His region ... esophageal lead w/ 2 cm bipole (used to assess timing of leftatrial posterior wall activation) Total Fluoroscopy Time: 29.8 + 30.5 minutes, low intensity setting,biplane fluoroscopy; cumulative 272 + 247 mGy; DAP 3267 + 3437 cGy.cm2 At the conclusion of left atrial ablation and follow up provocativetesting, catheters and sheaths were removed, and hemostasis was achievedvia manual compression (following administration of a total of 25 mg ofprotamine). The patient tolerated the procedure well, with no apparentacute complications. He was transferred to the recovery area in stablecondition. Baseline Assessment: 1) Baseline rhythm was sinus rhythm at a cycle length of 1111 ms: OH: 171 ms AH: 71 ms HV: 51 ms QRS: 141 ms (right bundle branch block) QT: 481 ms 2) Atrial overdrive pacing was accomplished from the coronary sinus (CS),and the AV Wenckebach block cycle length was observed at 400 ms. There wasno pre-excitation or conduction aberrancy identified. The [id number]< QRS-QRS just prior to the observed AV Wenckebach block cycle length, andno echo beats were elicited in this manner. Atrial extrastimulus testingwith an S1 cycle length (CL) of 600 ms revealed no discrete dual AV nodephysiology, but an echo beat or atrial re-entrant beat was elicited at anS2 coupling interval of 300 ms. The AV node effective refractory periodwas 270 ms. Rapid atrial pacing from the proximal coronary sinus down to220 ms elicited nonsustained atrial reentry. 3) Pacing was accomplished from the high septal aspect of the rightventricle near the His bundle. Concentric ventriculo-atrial (VA)conduction was observed at a pacing rate of 400 ms. Of note, His bundlepacing resulted in loss of the right bundle branch block, and narrowing ofthe main QRS complex to 85-90 ms. 4) A 6 mg test bolus of adenosine was administered without obvious effecton the patient's rhythm or ventilatory parameters (no obvious AHprolongation, AV block, or change in ventilatory pressures). An 18 mgbolus of adenosine was administered next; transient AV conduction delaywas observed; again there was no apparent impact on ventilatoryparameters. The sinus rate subsequently increased to 77/min. 5) Isoproterenol was infused at a rate of 5 mcg/min, and over severalminutes was increased to an infusion rate of 20 mcg/min (heart rateincreased to 80/min). A 30 mg adenosine bolus was administered; thisresulted in transient AV conduction delay and sinus rate slowing. Nosustained tachyarrhythmias were elicited in this manner; his sinus ratesubsequently increased to 111/min. The isoproterenol infusion wasdiscontinued. 6) As the isoproterenol effect dissipated, rapid atrial pacing again wasaccomplished; after pacing into to a CL of 200 ms, nonsustained re-entrywas elicited; at a shorter CL, atrial fibrillation (AF) was initiated. Left Atrial Mapping via Intracardiac Echocardiography (CARTO-Sound): Following baseline assessment, the intracardiac echocardiography catheter(HItviewsr) was to utilized to create a left atrial geometry withinCARTO-Sound. Unfortunately, the CARTO system failed, and repeated attemptsover 2 hours to bring it up failed. Instead, CARTO-Sound then wasabandoned, and the CARTO mapping system was replaced by the Velocitymapping system. Access to the left atrium was obtained next. Transeptal Access: The short 8 Lao sheaths in the right femoral vein were replaced withlong sheaths as follows: An 8 Fr SL1 transeptal sheath tip was placed in the superior vena cavaover a guidewire, and the guidewire was exchanged for a Brockenbroughneedle (BRK tip). Along with administration of a 7500 unit heparin bolus,the tip of the sheath was positioned at the low middle aspect of theforamen ovalis ('tenting of the fossa') and the needle advanced in theleft atrium guided by ICE imaging. The dilator and sheath were thenadvanced over the needle, and the position was confirmed fluoroscopicallywith approximately a 5 cc Omnipaque injection into the left atrial chamber(and a blood sample sample was obtained, with the oxygen saturation notedat 98.4%). The left atrial pressure was assessed via the sheath side armpressure column, and was 9 cm [place]; the right atrial pressure at that timewas 7 mm Hg. A variable dodecapolar Spiral catheter later was inserted viathis SL1 sheath and cautiously advanced into the left atrium for use inmapping the pulmonary veins. A continuous heparin infusion was deferred,given the patient's therapeutic INR. An 11.[address] Ian 'Agilis' short curl steerable transeptal sheath nextwas advanced across the fossa via a separate lower and more anteriorseptal access site utilizing similar technique as was used with the [id number]. The left atrial pressure was assessed via the sheath side armpressure column, and was 8 cm [place]; the right atrial pressure at that timewas 7 mm Hg. A blood sample was obtained (with the oxygen saturation notedat 97.78%). The dilator and needle were then removed and replaced with an3.5 mm tip Cerevast TherapeuticssiGaopeng D-curve catheter (?), which was positioned in the leftatrium for subsequent mapping and ablation. Activated Clotting Times (ACTs) were assessed regularly after entry intothe left atrium, heparin boluses were given to maintain the ACT in therange 300-400 seconds. Both transseptal femoral sheaths receivedcontinuous heparinized saline flush (10,000 units/liter). Left Atrial Anatomy and Mapping: The left atrial catheter positions were monitored frequently throughoutthe procedure via intracardiac echo imaging using the SoundStar catheter.This also was employed during radiofrequency (RF) delivery to observecatheter location and to watch for the emergence of significant echobubble formation in the vascular space, or other indicators for thrombusformation potential. The pulmonary veins and the pericardial space weresurveyed at the end of the procedure prior to catheter removal, with nosignificant effusion identified (unchanged from initial ICE imaging). Thelocation of the esophagus was identified via ICE, and correlated tofluoroscopic views. Selective (left common, right upper and right lower) pulmonarycinevenography was accomplished using ~15 cc of saline-diluted Omnipaquecontrast (each) via the Agilis sheath for additional visual guidance indelineating the os/antrum for the pulmonary veins, and for determiningablation targets. The total contrast amount employed during this case was<100 cc, and any remaining contrast of the 100 cc total deployed wasdiscarded. A CARTO TouchLocal D-curve 8 Fr ablation catheter with deflectable3.5 mm tip was positioned in the left atrium for mapping and ablation viathe Agilis sheath. Using high resolution contrast CT images obtained priorto this procedure, a 3-dimensional anatomic reconstruction of the leftatrium and pulmonary veins was accomplished; this was then used to guidecreation of a 3-dimensional left atrial volume using the Velocity system. Programmed electrical stimulation, Jt-X 3-dimensional mapping, andradiofrequency ablation were performed as detailed below and digitallyarchived. During certain periods of pulmonary vein mapping, pulmonaryvein, coronary sinus and right atrial pacing were performed to helpdetermine atrial and pulmonary vein components of the potential recordedfrom near the atrial-PV junctions. Radiofrequency Ablation in the Left Atrium: There were five pulmonary veins (there was a small right middle pulmonaryvein). Signals were sampled from each of the major pulmonary veins, andelectrical connections confirmed (activation patterns assessed inconjunction with pacing from multiple sites). The posterior aspect of theantrum for the right pulmonary veins was targeted first for ablationduring persisting atrial fibrillation (AF). Right Upper Pulmonary Vein (RUPV) Right Middle Pulmonary Vein (RMPV) Right Lower Pulmonary Vein (RLPV) The Spiral catheter loop was inserted into the proximal RUPV, andsubsequently it also was positioned within the proximal RLPV. Atrial-sideradiofrequency power delivery was accomplished and maintained at 15-30watts away from the posterior wall of the atrium; posteriorly we usedcontinuous unidirectional motion of the catheter tip and limited the powerdelivery to 20 enamorado (the catheter tip temperature was predominantlymaintained at <39 C degrees). The lesion trajectory was circumferentialaround both right pulmonary veins together, starting at the high posteriorantral margin and continuing inferiorly, then around the inferior antrumof the RLPV, and continuing up superiorly along the septum. Rooflineablation was then performed segmentally to connect the posterior andanterior trajectories, and entrance block to the right pulmonary veins wasachieved. Prior to achieving entrance block, the AF reverted to a flutterrhythm, and then while ablating at the superior segment, sinus rhythmemerged. No dissociated slow spontaneous electrical activity (SSEA) wasobserved initially, but subsequently emerged at a rate of 20/min. A 24 mg adenosine bolus was administered, with subsequent transient AVconduction block and mild sinus rate slowing; no transient recovery ofconduction into the right pulmonary vein antrum (RPVA) either during orafter the manifest adenosine effect was observed; SSEA was suppressed. Left Upper Pulmonary Vein (LUPV) Left Lower Pulmonary Vein (LLPV) The Spiral loop was positioned within the proximal aspect of the LUPV.Atrial- side radiofrequency power delivery was accomplished and maintainedat 15-35 enamorado away from the posterior wall of the atrium (the cathetertip temperature was predominantly maintained at <39 C degrees). Theposterior margin of the antrum was ablated using 15-20 enamorado and constantunidirectional catheter tip motion. A circumferential ablation around themargins of the antrum to the left pulmonary veins was completed, startingfrom the low antral margin inferior to the LLPV and continuing up alongthe posterior wall, then again starting at the low antral margin andcontinuing up along the anterior ridge and the roof. Entrance block to theleft pulmonary veins was achieved even before completion of thecircumfirential trajectory (with substantial portion of the anteriorsegment yet to be ablated - the ablation trajectory nonetheless wascompleted). A 24 mg adenosine bolus was administered, with subsequent transient AVconduction block and mild sinus rate slowing; no transient recovery ofconduction into the left pulmonary vein antrum (LPVA) either during orafter the manifest adenosine effect was observed; no dissociated slowspontaneous electrical activity was observed. Pulmonary Vein Reassessments Next, the Spiral loop was used to assess for any recurrence of conductioninto either of the right pulmonary veins ~40 minutes after acuteelectrical isolation had been achieved. The Spiral loop was positionedwithin the proximal RPV; no recovered segment of conduction was observed~60 minutes after acute electrical isolation had been achieved. Highoutput pacing (25 mA @ 2 ms) within the RPVA elicited local capture andexit block was confirmed. No SSEA was observed within the right pulmonaryveins at this time. A 24 mg adenosine bolus was administered; thisresulted in transient AV conduction block and sinus rate slowing, withouttransient recovery of inward conduction either during or after thedescribed manifest adenosine effect. Next, isoproterenol was infused at a dose of 20 mcg/min during vigilantmonitoring of the patient's hemodynamic status. Sinus rhythm at a rate of145/min was observed in response to this, and SSEA again was present. A 36mg adenosine bolus was administered, resulting in transient marked sinusrate slowing (but without AV conduction block) and transient suppressionof the SSEA; no transient recovery of conduction into that vessel eitherduring (or after) manifest adenosine effect was observed. The Spiral loopwas positioned next within the LPV, and SSEA was present in this region,too. A 36 mg adenosine bolus was administered; this resulted in transientAV conduction block and sinus rate slowing, without transient recovery ofinward conduction either during or after the described manifest adenosineeffect. The isoproterenol infusion was discontinued. High output pacing within the LPVA elicited local capture and exit blockwas confirmed. With the isoproterenol effect only starting to wane, rapidatrial pacing down to a CL of 180 ms elicited a few re-entrant beats.Pacing to a CL of 160 ms elicited AF that persisted for 15 minutes, priorto a successful direct current cardioversion (biphasic, synchronized, 120joules, external AP vector). Catheters and sheaths already had beenwithdrawn back into the right atrium prior to this cardioversion. Results: 1) Successful acute electrical isolation of all the pulmonary veins wasachieved (right and left pulmonary antral isolation, without carinalablation). Transient acute reconnections could not be elicited chemicallyat the conclusion of the procedure following the acute electricalisolations. Very limited radiofrequency current was delivered along theposterior ablation trajectories, located adjacent to the esophagus. 2) Preserved AV node conduction, right bundle branch block (eliminatedduring His bundle pacing). 3) No evidence of an accessory pathway. Dr. Byrd was present, and participated in all boyd aspects of thisprocedure; he personally reviewed the archived signals, and produced thisreport. Sanford Byrd MD EP PROCEDURE ORDERAB LES * EKG 12 Lead (12/12/2012 7:29 AM EST) Ventricular rate 60 BPM MUSE SYSTEM Atrial Rate 60 BPM MUSE SYSTEM P-R Interval 174 ms MUSE SYSTEM QRS Duration 134 ms MUSE SYSTEM Q-T Interval 418 ms MUSE SYSTEM QTC Calculated (Bezet) 418 ms MUSE SYSTEM Calculated P [place] 40 degrees MUSE SYSTEM Calculated R [place] -40 degrees MUSE SYSTEM Calculated T [place] -7 degrees MUSE SYSTEM INTERPRETATION Normal sinus rhythm Left axis deviation Right bundle branch block Abnormal ECG When compared with ECG of 15-NOV-2012 13:06, No significant change was found Confirmed by MD Lo Robert ([id number]) on 12/12/2012 12:18:37 PM MUSE SYSTEM 12/12/2012 7:29 AM EST 12/12/2012 12:18 PM EST Sanford Byrd MD ECG ORDERABLES MUSE SYSTEM * Antibody screen manual (12/12/2012 6:20 AM EST) AB Screen Interp Negative CERNER MILLENNIUM Blood specimen (specimen) 12/12/2012 6:20 AM EST 12/12/2012 6:25 AM EST Narrative Resulting Agency Comment Spec In Lab Sanford Byrd MD BLOOD BANK LAB ORDER DELICIA Performing Organization Address [facility] Co de Phone Number CERNER MILLENNIUM * ABORh Type Manual (12/12/2012 6:20 AM EST) Expires at 2359 on: [id number] CERNER MILLENNIUM ABORH Type O Pos CERNER MILLENNIUM Blood specimen (specimen) 12/12/2012 6:20 AM EST 12/12/2012 6:25 AM EST Narrative Resulting Agency Comment Spec In Lab Sanford Byrd MD BLOOD BANK LAB ORDER DELICIA Performing Organization Address [facility] Co de Phone Number CERNER MILLENNIUM * Differential, Automated (12/12/2012 6:20 AM EST) Neutrophil % 53.9 34.0 - 71.0 % CERNER MILLENNIUM Neutrophil Absolute 2.85 1.50 - 6.30 x10(3)/mcL CERNER MILLENNIUM Lymph % 30.8 19.0 - 53.0 % CERNER MILLENNIUM Lymphocytes Abs 1.6 1.0 - 3.6 x10(3)/mcL CERNER MILLENNIUM Monocyte % 13.0 4.0 - 13.0 % [facility] MILLENNIUM Monocyte Abs 0.7 0.2 - 1.0 x10(3)/[facility] CERNER MILLENNIUM Eos % 1.9 0.0 - 7.0 % [facility] Eosinophils Abs 0.1 0.0 - 0.5 x10(3)/[facility] CERNER MILLENNIUM Basophil % 0.2 0.0 - 2.0 % KELLNER LESLEYENNIUM Baso Absolute 0.0 0.0 - 0.2 x10(3)/[facility] LESLEYENNIUM Immature Gran % 0.20 0.00 - 0.66 % [facility] LESLEYENNIUM Comment: Immature granulocytes(IG's)percentage and absolute count will include metamyelocytes, myelocytes, and promyelocytes. Blood smears from CBCs yielding IG's will be scanned manually for concordance. If this scan disagrees with the automated IG or if promyelocytes are noted, a manual differential will be performed. Immature Gran Absolute 0.01 0.00 - 0.05 x10(3)/[facility] HELEN FAGANIUM Blood specimen (specimen) 12/12/2012 6:20 AM EST 12/12/2012 6:25 AM EST Sanford Byrd MD HEMATOLOGY ORDERABLE S [facility] GONZALEZ * (ABNORMAL) BMP w/fasting Glucose (12/12/2012 6:20 AM EST) Glucose Fasting 95 65 - 99 mg/dL [facility] Comment: ?Fasting* Glucose Interpretive Criteria Normal ?65-99 [...] of Diabetes Mellitus, Position Statement from the [employer]. ??Diabetes Care, Volume 33, Supplement 1, Nov 2009 Blood Urea Nitrogen 23(H) 10 - 20 mg/dL CERNER MILLENNIUM Creatinine 0.76(L) 0.80 - 1.50 mg/dL CERNER MILLENNIUM Comment: Please note that the pediatric reference intervals supplied above were not validated at [place]. Results from pediatric patients should be interpreted in conjunction to the patient's age, height and muscle mass. Sodium 140 135 - 145 mmol/L CERNER MILLENNIUM Potassium 4.1 3.5 - 5.0 mmol/L CERNER MILLENNIUM Comment: Please note: ??Patients with WBC >100,000 may have falsely elevated Potassium levels. ??For accurate Potassium quantification in these patients send serum separator tube (gold top) for subsequent determinations. ??Contact the Clinical Chemistry Laboratory if there are any questions. Chloride 105 98 - 107 mmol/L CERNER MILLENNIUM Carbon Dioxide 28 22 - 31 mmol/L CERNER MILLENNIUM Anion Gap 7 5 - 15 mmol/L CERNER MILLENNIUM Calcium 9.2 8.5 - 10.5 mg/dL CERNER MILLENNIUM Est [...] J Am Soc Nephrol;6:1963-72. Blood specimen (specimen) 12/12/2012 6:20 AM EST 12/12/2012 6:25 AM EST Narrative Resulting Agency Comment Spec In Lab Sanford Byrd MD CHEMISTRY ORDERABLES [facility] MILLENNIUM * (ABNORMAL) CBC (with Diff) (12/12/2012 6:20 AM EST) White Blood Cell 5.3 4.0 - 10.0 x10(3)/mc L CERNER MILLENNIUM Red Blood Cell 4.72 4.63 - 6.08 x10(6)/mc L CERNER MILLENNIUM Hemoglobin 14.7 13.7 - 17.5 gm/dL CERNER MILLENNIUM Hematocrit 42.5 40.0 - 51.0 % CERNER MILLENNIUM Mean Cell Volume 90.0 79.0 - 92.0 fL CERNER MILLENNIUM Mean Cell Hemoglobin 31.1 25.6 - 32.2 pg CERNER MILLENNIUM Mean Cell Hemoglobin Concentration 34.6 32.0 - 36.5 gm/dL CERNER MILLENNIUM Platelet 139(L) 145 - 370 x10(3)/mc L CERNER MILLENNIUM RDW Standard Deviation 38.7 35.0 - 46.0 fL CERNER MILLENNIUM RDW coefficient of variation 11.8 10.9 - 14.4 % CERNER MILLENNIUM Mean Platelet Volume 11.6 9.0 - 12.0 fL CERGAIL SUTTONENNIUM Blood specimen (specimen) 12/12/2012 6:20 AM EST 12/12/2012 6:25 AM EST Narrative Resulting Agency Comment Spec In Lab Sanford Byrd MD HEMATOLOGY ORDERABLE S Performing Organization Address [facility] de Phone Number HELEN ROTH * (ABNORMAL) Prothrombin Time (12/12/2012 6:20 AM EST) Prothrombin Time 22.0(H) 11.9 - 14.7 sec HELEN FAGANIUM Comment: [facility] Transfusion Committee Guidelines: INR less than 2.0, PTT less than OR equal to 43.5 seconds, or Fibrinogen greater than or equal to 100 mg/dl indicate adequate procoagulant activity for hemostasis in patients without underlying bleeding disorders. International Normalization Ratio 1.9(H) 0.9 - 1.1 HELEN SUTTONENNIUM Blood specimen (specimen) 12/12/2012 6:20 AM EST 12/12/2012 6:25 AM EST Narrative Resulting Agency Comment Spec In Lab Sanford Byrd MD HEMATOLOGY ORDERABLE S Performing Organization Address [facility] Phone Number HELEN ROTH documented in this encounter Visit Diagnoses Diagnosis Atrial fibrillation Atrial fibrillation documented in this encounter Administered Medications Inactive Administered Medications - up to 3 most recent administrations Medication Order MAR Action Action Date Dose Rate Site adenosine (diagnostic) (ADENOSCAN) infusion 6-48 mg 6-48 mg, Intravenous, EVERY 1 MIN PRN, Starting on Wed12/12/12 at 0754, Until Wed12/12/12 at 1654, EP Study/Ablation, EP (Intra-Procedure), Routine Given 12/12/2012 4:05 PM EST 6 mg Given 12/12/2012 4:03 PM EST 6 mg Given 12/12/2012 3:44 PM EST 24 mg aspirin tablet 325 mg 325 mg, Oral, DAILY, First dose on Wed12/12/12 at 2130, Until Discontinued, Routine Given 12/12/2012 9:53 PM EST 325 mg baclofen (LIORESAL) tablet 10 mg 10 mg, Oral, DAILY, First dose on Wed12/12/12 at 1800, Until Discontinued, Routine Given 12/13/2012 9:26 AM EST 10 mg Given 12/12/2012 6:45 PM EST 10 mg BUpivacaine (PF) (MARCAINE) 0.5 % (5 mg/mL) injection 150 mg 150 mg (30 mL), Subcutaneous, ONCE, 1 dose, On Wed12/12/12 at 0815, EP (Intra-Procedure), Routine Given 12/12/2012 9:00 AM EST 150 mg esomeprazole (NEXIUM) capsule 40 mg 40 mg, Oral, 2 TIMES DAILY, First dose on Wed12/12/12 at 2130, Until Discontinued, Routine Given 12/13/2012 9:26 AM EST 40 mg Given 12/12/2012 9:54 PM EST 40 mg fentaNYL 50mcg/mL injection 25-50 mcg, Intravenous, EVERY 5 MIN PRN, Starting on Wed12/12/12 at 1631, Until Wed12/12/12 at 1903, Pain, for breakthrough pain, Hold for respiratory rate less than 10 per minute. Maximum dose: 250 mcg over one hour., PACU Recovery, Routine Given 12/12/2012 5:48 PM EST 50 mcg Given 12/12/2012 5:18 PM EST 50 mcg heparin (porcine) injection 1,000-10,000 Units 1,000-10,000 Units, Intravenous, 4 TIMES DAILY PRN, Starting on Wed12/12/12 at 0754, Until Wed12/12/12 at 1654, transeptal puncture-therapeutic ACT, EP (Intra-Procedure), Routine Given 12/12/2012 12:17 PM EST 7,500 Units isoproterenol (ISUPREL) 1 mg in sodium chloride 0.9% 250 mL infusion (EP lab) 1-20 mcg/min (rounded to 15-300 mL/hr), Intravenous, CONTINUOUS PRN, Starting on Wed12/12/12 at 0754, Until Wed12/12/12 at 1654, EP Study/Ablation, EP (Intra-Procedure) Rate/Dose Change 12/12/2012 3:51 PM EST 20 mcg/min 300 mL/hr Rate/Dose Change 12/12/2012 3:50 PM EST 10 mcg/min 150 mL/ hr New Bag 12/12/2012 3:48 PM EST 5 mcg/min 75 mL/hr lidocaine (XYLOCAINE) 20 mg/mL (2 %) injection 400 mg 400 mg (20 mL), Subcutaneous, ONCE, 1 dose, On Wed12/12/12 at 0815, EP (Intra-Procedure), Routine Given 12/12/2012 9:00 AM EST 400 mg lidocaine HCl (URO-JET) 2 % gel 10 mL 10 mL, INTRA-URETHRAL, ONCE, 1 dose, On Wed12/12/12 at 0815, EP (Intra-Procedure), Routine Given 12/12/2012 8:00 AM EST 10 mLs methadone (DOLOPHINE) tablet 10 mg 10 mg, Oral, 2 TIMES DAILY, First dose on Wed12/12/12 at 2100, Until Discontinued, Routine Given 12/13/2012 9:26 AM EST 10 mg Given 12/12/2012 9:55 PM EST 10 mg methadone (DOLOPHINE) tablet 10 mg 10 mg, Oral, ONCE, 1 dose, On Wed12/12/12 at 1815, STAT Given 12/12/2012 6:00 PM EST 10 mg metoprolol succinate (TOPROL-XL) XL tablet 50 mg 50 mg, Oral, DAILY, First dose on Wed12/13/12 at 0900, Until Discontinued, Routine Given 12/13/2012 9:26 AM EST 50 mg morphine 4 mg/mL carpuject 2 mg 2 mg, Intravenous, EVERY 2 HOURS PRN, 2 doses, Starting on Wed12/13/12 at 0221, Until Wed12/13/12 at 0453, Pain, STAT Given 12/13/2012 4:53 AM EST 2 mg Given 12/13/2012 2:35 AM EST 2 mg ondansetron (ZOFRAN) injection 4 mg 4 mg, Intravenous, EVERY 30 MIN PRN, Starting on Wed12/12/12 at 1631, Until Wed12/12/12 at 1903, Nausea, May repeat 4 mg once in 30 minutes. Consider prochlorperazine if ineffective., PACU Recovery, Routine Given 12/12/2012 7:42 PM EST 4 mg OXYcodone-acetaminophen (PERCOCET) 5-325 mg per tablet 1 tablet 1 tablet, Oral, EVERY 4 HOURS PRN, Starting on Wed12/12/12 at 1703, Until Wed12/13/12 at 1356, Pain, Maximum dose of acetaminophen is 4000 mg from all sources in 24 hours., Routine Given 12/12/2012 11:30 PM EST 1 tablet Given 12/12/2012 7:30 PM EST 1 tablet protamine injection 5-50 mg 5-50 mg, Intravenous, 2 TIMES DAILY PRN, Starting on Wed12/12/12 at 0755, Until Wed12/12/12 at 1654, Heparin Reversal, EP (Intra-Procedure), Routine Given 12/12/2012 4:11 PM EST 25 mg simvastatin (ZOCOR) tablet 10 mg 10 mg, Oral, NIGHTLY, First dose on Wed12/12/12 at 2100, Until Discontinued Given 12/12/2012 9:56 PM EST 10 mg sodium chloride 0.9 % flush 5 mL 5 mL, Intravenous, EVERY 12 HOURS, First dose on Wed12/12/12 at 1730, Until Discontinued Given 12/13/2012 5:30 AM EST 5 mLs Given 12/12/2012 6:15 PM EST 5 mLs SUMAtriptan (IMITREX) tablet 50 mg 50 mg, Oral, ONCE, 1 dose, On Wed12/13/12 at 0030, Maximum dose: 200mg in 24 hours, STAT Given 12/13/2012 12:30 AM EST 50 mg warfarin (COUMADIN) tablet 1 mg 1 mg, Oral, EVERY EVENING, First dose on Wed12/12/12 at 2130, Until Discontinued, Routine Given 12/12/2012 9:56 PM EST 1 mg zolpidem (AMBIEN) tablet 5 mg 5 mg, Oral, NIGHTLY PRN, Starting on Wed12/12/12 at 2017, Until Wed12/13/12 at 1356, Sleep, Routine Given 12/13/2012 1:28 AM EST 5 mg documented in this encounter Active and Recently Administered Medications Times are shown in EST. Scheduled Medication Order 12/11/2012 12/12/2012 12/13/2012 aspirin tablet 325 mg (CANCELED) 325 mg, Oral, DAILY, First dose on Wed12/12/12 at 2130, Until Discontinued, Routine 215 (Given - Provider: Tonja Jaimes RN) baclofen (LIORESAL) tablet 10 mg (CANCELED) 10 mg, Oral, DAILY, First dose on Wed12/12/12 at 1800, Until Discontinued, Routine 184 (Given - Provider: Shruthi Espino RN) 0926 (Given - Provider: Naz Capone RN) BUpivacaine (PF) (MARCAINE) 0.5 % (5 mg/mL) injection 150 mg (COMPLETED) 150 mg (30 mL), Subcutaneous, ONCE, 1 dose, On Wed12/12/12 at 0815, EP (Intra-Procedure), Routine 0900 (Given - Provider: Janae Owusu, TORREY) esomeprazole (NEXIUM) capsule 40 mg (CANCELED) 40 mg, Oral, 2 TIMES DAILY, First dose on Wed12/12/12 at 2130, Until Discontinued, Routine 2153 (Given - Provider: Tonja Jaimes RN) 925 (Given - Provider: Naz Capone, TORREY) lidocaine (XYLOCAINE) 20 mg/mL (2 %) injection 400 mg (COMPLETED) 400 mg (20 mL), Subcutaneous, ONCE, 1 dose, On Wed12/12/12 at 0815, EP (Intra-Procedure), Routine 0900 (Given - Provider: Janae Owusu RN) lidocaine HCl (URO-JET) 2 % gel 10 mL (COMPLETED) 10 mL, INTRA-URETHRAL, ONCE, 1 dose, On Wed12/12/12 at 0815, EP (Intra-Procedure), Routine 0800 (Given - Provider: Janae Owusu RN) methadone (DOLOPHINE) tablet 10 mg (CANCELED) 10 mg, Oral, 2 TIMES DAILY, First dose on Wed12/12/12 at 2100, Until Discontinued, Routine 2154 (Given - Provider: Tonja Jaimes RN) 925 (Given - Provider: Naz Capone RN) methadone (DOLOPHINE) tablet 10 mg (COMPLETED) 10 mg, Oral, ONCE, 1 dose, On Wed12/12/12 at 1815, STAT 1800 (Given - Provider: Shruthi Espino, TORREY) metoprolol succinate (TOPROL-XL) XL tablet 50 mg (CANCELED) 50 mg, Oral, DAILY, First dose on Wed12/13/12 at 0900, Until Discontinued, Routine 925 (Given - Provid er: Naz Capone RN) simvastatin (ZOCOR) tablet 10 mg (CANCELED) 10 mg, Oral, NIGHTLY, First dose on 2/11/13 at 2100, Until Discontinued 2155 (Given - Provider: Tonja Jaimes RN) sodium chloride 0.9 % flush 5 mL (CANCELED) 5 mL, Intravenous, EVERY 12 HOURS, First dose on Wed12/12/12 at 1730, Until Discontinued 1814 (Given - Provider: Shruthi Espino RN) 0530 (Given - Provider: Tonja Jaimes RN) SUMAtriptan (IMITREX) tablet 50 mg (COMPLETED) 50 mg, Oral, ONCE, 1 dose, On Wed12/13/12 at 0030, Maximum dose: 200mg in 24 hours, STAT 0030 (Given - Provid er: Radha Phelps) warfarin (COUMADIN) tablet 1 mg 1 mg, Oral, EVERY EVENING, First dose on Wed12/12/12 at 2130, Until Discontinued, Routine 2155 (Given - Provider: Tonja Jaimes RN) PRN Medication Order 12/11/2012 12/12/2012 12/13/2012 adenosine (diagnostic) (ADENOSCAN) infusion 6-48 mg (CANCELED) 6-48 mg, Intravenous, EVERY 1 MIN PRN, Starting on Wed12/12/12 at 0754, Until Wed12/12/12 at 1654, EP Study/Ablation, EP (Intra-Procedure), Routine 1112 (Given - Provider: Artie Bear RN)1114 (Given - Provider: Artie Bear RN)1124 (Given - Provider: Artie Bear RN)1137 (Given - Provider: Artie Bear RN)1506 (Given - Provider: Artie Bear RN)1541 (Given - Provider: Artie Bear RN)1544 (Given - Provider: Artie Bear RN)1603 (Given - Provider: Artie Bear RN)1605 (Given - Provider: Artie Bear RN) fentaNYL 50mcg/mL injection (CANCELED) 25-50 mcg, Intravenous, EVERY 5 MIN PRN, Starting on Wed12/12/12 at 1631, Until Wed12/12/12 at 1903, Pain, for breakthrough pain, Hold for respiratory rate less than 10 per minute. Maximum dose: 250 mcg over one hour., PACU Recovery, Routine 1718 (Given - Provider: Janae Hill RN)1748 (Given - Provider: Shruthi Espino RN) heparin (porcine) injection 1,000-10,000 Units (CANCELED) 1,000-10,000 Units, Intravenous, 4 TIMES DAILY PRN, Starting on Wed12/12/12 at 0754, Until Wed12/12/12 at 1654, transeptal puncture-therapeutic ACT, EP (Intra-Procedure), Routine 1217 (Given - Provider: Artie Bear RN) isoproterenol (ISUPREL) 1 mg in sodium chloride 0.9% 250 mL infusion (EP lab) (CANCELED) 1-20 mcg/min (rounded to 15-300 mL/hr), Intravenous, CONTINUOUS PRN, Starting on Wed12/12/12 at 0754, Until Wed12/12/12 at 1654, EP Study/Ablation, EP (Intra-Procedure) 1115 (New Bag - Provider: Artie Bear RN)1120 (Rate/Dose Change - Provider: Artie Bear RN)1122 (Rate/Dose Change - Provider: Artie Bear RN)1124 (Stopped - Provider: Artie Bear RN)1548 (New Bag - Provider: Artie Bear RN)1550 (Rate/Dose Change - Provider: Artie Bear RN)1551 (Rate/Dose Change - Provider: Artie Bear RN)1605 (Stopped - Provider: Artie Bear RN) morphine 4 mg/mL carpuject 2 mg (COMPLETED) 2 mg, Intravenous, EVERY 2 HOURS PRN, 2 doses, Starting on Wed12/13/12 at 0221, Until Wed12/13/12 at 0453, Pain, STAT 0235 (Given - Provider: Tonja Jaimes RN)0453 (Given - Provider: Radha Phelps) ondansetron (ZOFRAN) injection 4 mg (CANCELED) 4 mg, Intravenous, EVERY 30 MIN PRN, Starting on Wed12/12/12 at 1631, Until Wed12/12/12 at 1903, Nausea, May repeat 4 mg once in 30 minutes. Consider prochlorperazine if ineffective., PACU Recovery, Routine 194 (Given - Provider: Wilfredo Theodore RN) OXYcodone-acetaminophen (PERCOCET) 5-325 mg per tablet 1 tablet (CANCELED) 1 tablet, Oral, EVERY 4 HOURS PRN, Starting on Wed12/12/12 at 1703, Until Wed12/13/12 at 1356, Pain, Maximum dose of acetaminophen is 4000 mg from all sources in 24 hours., Routine 1930 (Given - Provider: Wilfredo Theodore RN)2330 (Given - Provider: Tonja Jaimes, TORREY) protamine injection 5-50 mg (CANCELED) 5-50 mg, Intravenous, 2 TIMES DAILY PRN, Starting on Wed12/12/12 at 0755, Until Wed12/12/12 at 1654, Heparin Reversal, EP (Intra-Procedure), Routine 1611 (Given - Provider: Artie Bear RN) zolpidem (AMBIEN) tablet 5 mg (CANCELED) 5 mg, Oral, NIGHTLY PRN, Starting on Wed12/12/12 at 2017, Until Wed12/13/12 at 1356, Sleep, Routine 0128 (Given - Provider: Tonja Jaimes RN) documented in this encounter Care Teams Belt Dresser Relationship Specialty Start Date End Date Radha Mckeon MD [address] [place] [address] PCP - General 09/23/10 documented as of this encounter
--- OUTSIDE RECORDS SUMMARY | 2024-07-24 17:32 | XMS_ITS | Encounter Summary ---
Author Organization Formerly [facility] [place] [address] Care Team Providers Care Ordained Minister Name Role Phone Radha Mckeon MD Primary Care Provider [phone] Encounter Details Date Type Department Care Team (Latest Contact Info) Description 12/12/2012 7:30 AM EST - 12/12/2012 11:59 PM [facility] Hospital Encounter Non-Invasive [place] [phone] CLINIC, DR GRANT Atrial fibrillation Discharge Disposition: Home Social History [...] AM EDT Hospital Encounter Non-Invasive [place] [address] Arrived 02/22/2025 1:30 PM EDT Appointment [place]ology [place] [address] 02/22/2025 2:30 PM EDT Office Visit H[place]ology [place] [address] Ellis Childers MD [facility] DR HEMATOLOGY [place] [address] Felicita Landa APRN [facility] DR HEMATOLOGY [place] [address] documented as of this encounter Procedures Procedure Name Priority Date/Time Associated Diagnosis Comments TRANSESOPHAGEAL ECHOCARDIOGRAM (VIET) Routine 12/12/2012 9:59 AM EST Atrial fibrillation documented in this encounter Results * Transesophageal Echocardiogram (VIET) (12/12/2012 9:59 AM EST) EF 65 HEARTBECC SYSTEM Anatomical Region Laterality Modality Other 12/12/2012 Narrative 12/12/2012 12:49 PM EST Procedure: ? Transesophageal Echocardiogram Patient: ? MILY Foreman ? (Age): 1950(62) Med Rec#: ?[id number] ? Sex: ?M ? [place] Loc: [place] ? Ht / Wt: ??(cm)/(kg) ? Pt. Loc: ? Cardiac Cath Technician ? BSA: ? Study Date: ?12/12/2012 ? Pt. Type: Outpatient Tape: ? Referring: Sanford Byrd Yellow Pages Space Salesperson: [employer] Study Abroad Advisor: Marcin Victor ([id number]) Interpreting Fellow: Marcin Victor ([id number]) Diagnosis:CPT Code(s): Indication(s):Rhythm: SUMMARY: 1. No thrombus [...] ?The VIET probe was passed by the commercial lines insurance agent after the patient was sedated with general anesthesia. Misc ?There is no hemodynamically significant valve disease. ?See remainder of report for additional findings. ?I personally reviewed the images and edited the resident's/fellow's interpretation. This report has been electronically signed by: Jesse Tristan M.D. ? 12/12/2012 12:49:00 Images reviewed and interpretation verified [facility] Cardiac Ultrasound Laboratory Resulting Agency Comment 1X Procedure Note Jesse Tristan MD - 12/12/2012 Procedure: Transesophageal Echocardiogram Patient: MILY CLINTON(Age): 1950(62) Med Rec#: [id number] Sex: M Site Loc: [facility] Ht / Wt: (cm)/(kg) Pt. Loc: Cardiac Cath Technician BSA: Study Date: 12/12/2012 Pt. Type: Outpatient Tape: Referring: Sanford Byrd Yellow Pages Space Salesperson: [employer] Study Abroad Advisor: Marcin Victor ([id number]) Interpreting Fellow: Marcin Victor ([id number]) Diagnosis:CPT Code(s): Indication(s):Rhythm: SUMMARY: 1. No thrombus [...] The VIET probe was passed by the commercial lines insurance agent after the patient was sedated with general anesthesia. [facility] There is no hemodynamically significant valve disease. See remainder of report for additional findings. I personally reviewed the images and edited the resident's/fellow's interpretation. This report has been electronically signed by: Jesse Tristan M.D. 12/12/2012 12:49:00 Images reviewed and interpretation verified [facility] Cardiac Ultrasound Laboratory Sanford Byrd MD ECHO ORDERABLES documented in this encounter Visit Diagnoses Diagnosis Atrial fibrillation documented in this encounter Care Teams Ordained Minister Relationship Specialty Start Date End Date Radha Mckeon MD [address] [place] [address] PCP - General 09/23/10 documented as of this encounter
--- OUTSIDE RECORDS SUMMARY | 2024-07-24 17:32 | XMS_ITS | Encounter Summary ---
Author Organization [facility] [place] [address] Care Team Providers Care Improvement Auditor Name Role Phone Radha Mckeon MD Primary Care Provider Encounter Details Date Type Department Care Team (Late st Contact Info) Description 12/12/2012 7:30 AM EST - 12/12/2012 2:30 PM EST Surgery [place] [address] Sanford Byrd MD [facility] [place] [address] ELECTROPHYSIOLOGY PROCEDURE Social History Tobacco Use Types [...] Sign Reading Time Taken Comments Blood Pressure 149/85 12/12/2012 6:36 AM EST Pulse 62 12/12/2012 6:36 AM EST Temperature 36.8 ??C (98.2 ??F) 12/12/2012 6:36 AM ES T Respiratory Rate 14 12/12/2012 6:36 AM EST Oxygen Saturation 99% 12/12/2012 6:36 AM EST Inhaled Oxygen Concentration - - Weight 88 kg (194 lb) 12/12/2012 6:36 AM EST Height 182.9 cm (6') 12/12/2012 6:36 AM EST Body Mass Index 26.31 12/12/2012 8:08 [...] of any new medications [facility]. The patient should be aware [...] BID Carlos Baptiste MD 40 mg at 02/12/13 0926 ??? methadone (DOLOPHINE) tablet 10 mg 10 mg Oral Once Sam Ciu MD 10 mg at 12/12/12 1800 ??? [...] Gutierres MD4 mg at 12/12/121941 No current Epic-ordered outpatient prescriptions on file. Physical Exam: Vital [...] prior to visit Provider: ANDREE Shelley Provider#: [id number] Consult attending physician: Cynthia Byrd MD * [...] TYPE MANUAL Component Value Range Specimen OD 20121215 ABORh Type O Pos ANTIBODY SCREEN MANUAL Component Value Range AB Screen Interp Negative EKG NSR 60bpm RBBB with left axis deviation A/P: 62 male with history of afib, also recent atrial tachycardia here for PVI. Ready to proceed. documented in this encounter Procedure Notes * Provider, Scanning - 12/14/2012 11:02 AM ESTAssociated Order(s): SCAN DOC: MANAGER OF FINANCIAL REPORTING * Provider, Scanning - 12/14/2012 11:02 AM ESTAssociated Order(s): SCAN DOC: MANAGER OF FINANCIAL REPORTING documented in this encounter Miscellaneous Notes * [...] IMPLANTS USED: All implants were from the [facility] total knee system. 1. A size 4 [...] W-MINERALS/LUTEIN (CENTRUM SILVER ORAL) Take by mouth. Speed-3 Fatty Acids-Vitamin E 1,000 mg 1,000 mg [...] of any new medications initiated at the [facility]. The patient should be aware [...] 02/02/2013 10:50 AM ANDREE [facility] [phone] None Joint Appt Health Question Three C [facility] [phone] None Future Orders Please Complete By Expires Type and screen [[id number] Custom] 12/18/12 12/11/13 Process Instructions: If the patient is less than 6 months of age, order a Type and Screen ([id number]) Scheduling Instructions: Comments: Questions: Responses: Should this service/procedure be billed to the research sponsor? Provider Contact Information: Cardiac Electrophysiology [phone] Discharge References/Attachments: Discharge References/Attachments None For questions regarding this document or issues relating to this hospitalization on the Cardiac Electrophysiology Service, please contact your inpatient physician through the [facility] Bracelet Form Coverer . Issues after hours and on weekends will be handled by the Cardiology Hospitalist staff on-call. Signed: ANDREE HALL 12/13/2012 10:23 AM * Brief Op Note - Carlos Baptiste MD - 12/12/2012 4:51 PM EST Brief Operative Note Patient Name: Malik Machado : [id number] MR#: [id number] Case Date: 12/12/2012 Surgeon: Surgeon(s) and Role: * Sanford Byrd MD - Primary * Carlos Baptiste MD - Resident-Treatment Coordinator Preoperative diagnosis: AFIB Postoperative diagnosis: AFIB Procedure(s): [...] AM EDT Hospital Encounter Non-[place] [address] Arrived 02/22/2025 1:30 PM EDT Appointment [place] [phone] 02/22/2025 2:30 PM EDT Office Visit Hematology and Oncology at [facility] [place] [address] [place] [phone] Ellis Childers MD [facility] [address] [place] [address] Felicita Landa APRN [facility] [place] [address] documented as of this encounter Procedures Procedure Name Priority Date/Time Associated Diagnosis Comments MANAGER OF FINANCIAL REPORTING SCAN 12/14/2012 11:02 AM EST MANAGER OF FINANCIAL REPORTING SCAN 12/14/2012 11:02 AM EST PROTHROMBIN TIME [...] in this encounter Results * SCAN DOC: MANAGER OF FINANCIAL REPORTING (12/14/2012 11:02 AM EST) Anatomical Region Laterality Modality Other Narrative Transcriptions Provider, Scanning - 12/14/2012 11:02 AM EST Scanning Provider MEDIA MGR SCAN EXT O RDR/RSLT * SCAN DOC: MANAGER OF FINANCIAL REPORTING (12/14/2012 11:02 AM EST) Anatomical Region Laterality Modality Other Narrative Transcriptions Provider, Scanning - 12/14/2012 11:02 AM EST Scanning Provider MEDIA MGR SCAN EXT O RDR/RSLT * (ABNORMAL) Prothrombin Time (12/13/2012 5:54 AM EST) Prothrombin Time 25.0(H) 11.9 - 14.7 sec HELEN [email or web address] Comment: [facility] Transfusion Committee Guidelines: INR less than 2.0, PTT less than OR equal to 43.5 seconds, or Fibrinogen greater than or equal to 100 mg/dl indicate adequate procoagulant activity for hemostasis in patients without underlying bleeding disorders. International Normalization Ratio 2.2(H) 0.9 - 1.1 HELEN [employer] Blood specimen (specimen) 12/13/2012 5:54 AM EST 12/13/2012 6:00 AM EST Narrative Resulting Agency Comment Spec In Lab Sam Cui MD HEMATOLOGY ORDERABLE S [facility] * Electrophysiology Procedure (12/12/2012 4:53 PM EST) [...] at a cycle length of 1111 ms: WI: ?171 ms AH: ? 71 ms HV: ? 51 ms QRS: ?? 141 ms (right bundle branch block) QT: ?481 ms 2) Atrial overdrive pacing was accomplished from the coronary sinus (CS), and the AV Wenckebach block cycle length was observed at 400 ms. There was no pre-excitation or conduction aberrancy identified. The [id number]-ch-SIJ < QRS-QRS just prior to the observed [...] Following baseline assessment, the intracardiac echocardiography catheter (Exagen Diagnosticstar) was to utilized to create a left atrial geometry within CARTO-Sound. Unfortunately, the CARTO system failed, and repeated attempts over 2 hours to bring it up failed. Instead, CARTO-Sound then was abandoned, and the CARTO mapping system was replaced by the Velocity mapping system. Access to the left atrium was obtained next. Transeptal Access: The short 8 Cymraes sheaths in the right femoral vein were [...] arm pressure column, and was 9 cm CADDO; the right atrial pressure at that time [...] arm pressure column, and was 8 cm CADDO; the right atrial pressure at that time was 7 mm Hg. A blood sample was obtained (with the oxygen saturation noted at 97.78%). The dilator and needle were then removed and replaced with an 3.5 mm tip Celsius D-curve catheter (?), which was positioned in [...] procedure via intracardiac echo imaging using the Exagen Diagnosticstar catheter. This also was employed during radiofrequency [...] informed consent, the patient was brought to [facility] Electrophysiology Laboratory in the fasting [...] at a cycle length of 1111 ms: WI: 171 ms AH: 71 ms HV: 51 ms QRS: 141 ms (right bundle branch block) QT: 481 ms 2) Atrial overdrive pacing was accomplished from the coronary sinus (CS),and the AV Wenckebach block cycle length was observed at 400 ms. There wasno pre-excitation or conduction aberrancy identified. The tuarnvac-xw-IEC< QRS-QRS just prior to the observed AV [...] (CARTO-Sound): Following baseline assessment, the intracardiac echocardiography catheter(Exagen Diagnosticstar) was to utilized to create a left atrial geometry withinCARTO-Sound. Unfortunately, the CARTO system failed, and repeated attemptsover 2 hours to bring it up failed. Instead, CARTO-Sound then wasabandoned, and the CARTO mapping system was replaced by the Velocitymapping system. Access to the left atrium was obtained next. Transeptal Access: The short 8 Cymraes sheaths in the right femoral vein were [...] side armpressure column, and was 9 cm CADDO; the right atrial pressure at that timewas [...] similar technique as was used with the RA3utgrif. The left atrial pressure was assessed via the sheath side armpressure column, and was 8 cm CADDO; the right atrial pressure at that timewas 7 mm Hg. A blood sample was obtained (with the oxygen saturation notedat 97.78%). The dilator and needle were then removed and replaced with an3.5 mm tip Celsius D-curve catheter (?), which was positioned in [...] 100 cc total deployed wasdiscarded. A CARTO [employer] D-curve 8 Fr ablation catheter with deflectable3.5 [...] (Bezet) 418 ms MUSE SYSTEM Calculated P [place] 40 degrees MUSE SYSTEM Calculated R [place] -40 degrees MUSE SYSTEM Calculated T [place] -7 degrees MUSE SYSTEM INTERPRETATION Normal sinus [...] BANK LAB ORDER DELICIA Performing Organization Address City/[facility] Co de Phone Number CERNER MILLENNIUM * ABORh Type Manual (12/12/2012 6:20 AM EST) Expires at 2359 on: [id number] CERNER MILLENNIUM ABORH Type O Pos CERNER MILLENNIUM Blood specimen (specimen) 12/12/2012 6:20 AM EST 12/12/2012 6:25 AM EST Narrative Resulting Agency Comment Spec In Lab Sanford Byrd MD BLOOD BANK LAB ORDER DELICIA Performing Organization Address City/[facility] de Phone Number CERNER MILLENNIUM * Differential, Automated (12/12/2012 6:20 AM EST) Neutrophil % 53.9 34.0 - 71.0 % CERNER MILLENNIUM Neutrophil Absolute 2.85 1.50 - 6.30 x10(3)/mcL CERNER MILLENNIUM Lymph % 30.8 19.0 - 53.0 % CERNER MILLENNIUM Lymphocytes Abs 1.6 1.0 - 3.6 x10(3)/mcL CERNER MILLENNIUM Monocyte % 13.0 4.0 - 13.0 % CERNER MILLENNIUM Monocyte Abs 0.7 0.2 - 1.0 x10(3)/[facility] CERNER MILLENNIUM Eos % 1.9 0.0 - 7.0 % CERNER MILLENNIUM Eosinophils Abs 0.1 0.0 - 0.5 x10(3)/mcL CERNER MILLENNIUM Basophil % 0.2 0.0 - 2.0 % CERNER MILLENNIUM Baso Absolute 0.0 0.0 - 0.2 x10(3)/[facility] CERNER MILLENNIUM Immature Gran % 0.20 0.00 - 0.66 % CERNER MILLENNIUM Comment: Immature granulocytes(IG's)percentage and absolute count will include metamyelocytes, myelocytes, and promyelocytes. Blood smears from CBCs yielding IG's will be scanned manually for concordance. If this scan disagrees with the automated IG or if promyelocytes are noted, a manual differential will be performed. Immature Gran Absolute 0.01 0.00 - 0.05 x10(3)/[facility] LESLEYENNIUM Blood specimen (specimen) 12/12/2012 6:20 AM EST 12/12/2012 6:25 AM EST Sanford Byrd MD HEMATOLOGY ORDERABLE S [facility] * (ABNORMAL) BMP w/fasting Glucose (12/12/2012 6:20 AM EST) Glucose Fasting 95 65 - 99 mg/dL [facility] GRACIAIUM Comment: ?Fasting* Glucose Interpretive Criteria Normal ?65-99 [...] of Diabetes Mellitus, Position Statement from the [place] [employer]. ??Diabetes Care, Volume 33, Supplement 1, Nov 2009 Blood Urea Nitrogen 23(H) 10 - 20 mg/dL CERNER MILLENNIUM Creatinine 0.76(L) 0.80 - 1.50 mg/dL CERNER MILLENNIUM Comment: Please note that the pediatric reference intervals supplied above were not validated at [facility]. Results from pediatric patients [...] In Lab Sanford Byrd MD CHEMISTRY ORDERABLES CERNER MILLENNIUM * (ABNORMAL) CBC (with Diff) (12/12/2012 [...] Platelet Volume 11.6 9.0 - 12.0 fL CERNER MILLENNIUM Blood specimen (specimen) 12/12/2012 6:20 AM EST 12/12/2012 6:25 AM EST Narrative Resulting Agency Comment Spec In Lab Sanford Byrd MD HEMATOLOGY ORDERABLE S HELEN ROTH * (ABNORMAL) Prothrombin Time (12/12/2012 6:20 AM EST) Prothrombin Time 22.0(H) 11.9 - 14.7 sec HELEN FAGANIUM Comment: [facility] Transfusion Committee Guidelines: INR less than [...] MD HEMATOLOGY ORDERABLE S Performing Organization Address City/[facility] Co de Phone Number HELEN ROTH documented in this [...] on Wed12/12/12 at 1800, Until Discontinued, Routine 1845 (Given - Provider: Shruthi Espino RN) 0926 [...] Discontinued, Routine 2153 (Given - Provider: Tonja Jaiems RN) 925 (Given - Provider: Naz Capone, TORREY) lidocaine (XYLOCAINE) 20 mg/mL (2 %) injection 400 mg (COMPLETED) 400 mg (20 mL), Subcutaneous, ONCE, 1 dose, On Wed12/12/12 at 0815, EP (Intra-Procedure), Routine 09 (Given - Provider: Janae Owusu RN) lidocaine [...] 1815, STAT 1800 (Given - Provider: Shruthi Espino RN) metoprolol succinate (TOPROL-XL) XL tablet 50 mg (CANCELED) 50 mg, Oral, DAILY, First dose on Wed12/13/12 at 0900, Until Discontinued, Routine 925 (Given - Provid er: Naz Capone RN) simvastatin (ZOCOR) tablet 10 mg (CANCELED) 10 mg, Oral, NIGHTLY, First dose on Wed12/12/12 at 2100, Until Discontinued 2155 (Given - Provider: Tonja Jaimes RN) sodium chloride 0.9 % flush 5 mL (CANCELED) 5 mL, Intravenous, EVERY 12 HOURS, First dose on Wed12/12/12 at 1730, Until Discontinued 1815 (Given - Provider: Shruthi Espino RN) 0530 [...] 215 (Given - Provider: Tonja Jaimes RN) PRN [...] hours., Routine 1930 (Given - Provider: Wilfredo Theodore, TORREY)2330 (Given - Provider: Tonja Jaimes, RN) protamine injection 5-50 mg (CANCELED) 5-50 mg, [...] RN) documented in this encounter Care Teams Improvement Auditor Relationship Specialty Start Date End Date Radha Mckeon MD [address] [place] [address] PCP - General 09/23/10 documented as of this encounter
--- OUTSIDE RECORDS SUMMARY | 2024-07-24 17:32 | XMS_ITS | Encounter Summary ---
Author Organization [facility] [place] [address] Care Team Providers Care Photo Technologist Name Role Phone Radha Mckeon MD Primary Care Provider [phone] Reason for Visit * Reason Onset Date Comments Atrial Fibrillation 10/18/2012 Encounter Details Date Type Department Care Team (Late st Contact Info) Description 10/18/2012 Telephone Cardiology at [address] [phone] Florecita Miguel RN Atrial Fibrillation Social History Tobacco Use Types Packs/Day Years [...] Telephone Encounter - Florecita Miguel RN - 10/18/2012 10:56 AM EST Patient called to report that he had an episode of A. Fib ly that was caught on his holter monitor, He is asking if he needs to be put on blood thinners. Would like to talk with ANDREE Shelley about his A. Fib and plan. documented in this encounter Plan of Treatment Upcoming Encounters Date Type Department Care Team (Late st Contact Info) Description 08/18/2024 11:00 AM EDT Hospital Encounter Non-[place] [address] Arrived 02/22/2025 1:30 PM EDT Appointment Hematology [place] [address] 02/22/2025 2:30 PM EDT Office Visit Hematology [place] [address] Ellis Childers MD [facility] DR HEMATOLOGY [place] [address] Felicita Landa APRN [facility] [address] HEMATOLOGY [place] [address] documented as of this encounter Visit Diagnoses Not on filedocumented in this encounter Care Teams Photo Technologist Relationship Specialty Start Date End Date Radha Mckeon MD [address] [place] [address] PCP - General 09/23/10 documented as of this encounter
--- OUTSIDE RECORDS SUMMARY | 2024-07-24 17:32 | XMS_ITS | Encounter Summary ---
Author Organization [facility] [place] [address] Care Team Providers Care Motion Picture Equipment Machinist Name Role Phone Radha Mckeon MD Primary Care Provider Reason for Visit * Reason Onset Date Comments Other 08/09/2012 Lab Order Encounter Details Date Type Department Care Team (Late st Contact Info) Description 08/09/2012 Telephone Cardiology at [address] [phone] Diogo Robb PA [facility] [place] [address] Other (Lab Order) Social History Tobacco Use Types Packs/Day Years [...] * Telephone Encounter - Rosanna Altamirano - 08/09/2012 2:15 PM EDT Hi, Please sign the attached lab order. Thanks, Magdalena documented in this encounter Plan of Treatment Upcoming Encounters Date Type Department Care Team (Late st Contact Info) Description 08/18/2024 11:00 AM EDT Hospital Encounter Non-Invasive [place] [address] Arrived 02/22/2025 1:30 PM EDT Appointment Hematology [place] [phone] 02/22/2025 2:30 PM EDT Office Visit [place]ematology [place] [address] Ellis Childers MD [facility] DR HEMATOLOGY [place] [address] Felicita Landa APRN [facility] DR HEMATOLOGY [place] [address] Scheduled Orders Name Type Priority Associated Diagnoses Orde r Schedule EKG 12 Lead ECG Routine High risk medication use Ordered: 08/10/2012 documented as of this encounter Results * Magnesium (08/23/2012 12:38 PM EDT) Pathologist [facility] Magnesium 0.81 0.69 - 1.07 mmol/L [facility] Blood specimen (specimen) 08/23/2012 12:38 PM EDT 08/23/2012 12:43 PM EDT Narrative Resulting Agency Comment Spec In Lab Cullen Gilmore MD CHEMISTRY ORDERABL ES [facility] * Basic Metabolic Panel (non-fasting) (08/23/2012 12:38 PM EDT) Glucose 105 60 - 199 mg/dL [facility] Comment:Diabetes: >=200 mg/d L plus symptoms Blood Urea Nitrogen 15 10 - 20 mg/dL CERNER MILLENNIUM Creatinine 0.99 0.80 - 1.50 mg/dL CERNER MILLENNIUM Comment: Please note that the pediatric reference intervals supplied above were not validated at [facility]. Results from pediatric patients should be interpreted [...] Laboratory if there are any questions. Chloride 104 98 - 107 mmol/L CERNER MILLENNIUM Carbon Dioxide 30 22 - 31 mmol/L CERNER MILLENNIUM Anion Gap 6 5 - 15 mmol/L CERNER MILLENNIUM Calcium [...] J Am Soc Nephrol;6:1963-72. Blood specimen (specimen) 08/23/2012 12:38 PM EDT 08/23/2012 12:43 PM EDT Narrative Resulting Agency Comment Spec In Lab Cullen Gilmore MD CHEMISTRY ORDERABL ES Performing Organization Address City/State/[facility] Co [place] Phone Number [facility] documented in this encounter Visit Diagnoses Diagnosis High risk medication use- Primary Encounter for long-term (current) use of other medications documented in this encounter Care Teams Motion Picture Equipment Machinist Relationship Specialty Start Date End Date Radha Mckeon MD [address] [place] [address] PCP - General 09/23/10 documented as of this encounter
--- OUTSIDE RECORDS SUMMARY | 2024-07-24 17:32 | XMS_ITS | Encounter Summary ---
Author Organization [facility]ly [place] [address] Care Team Providers Care Diesel Instructor Name Role Phone Radha Mckeon MD Primary Care Provider [phone] Encounter Details Date Type Department Care Team (Late st Contact Info) Description 11/17/2012 Orders Only Cardiology at [address] [phone] Sanford Byrd MD [facility] [place] [address] Atrial fibrillation (Primary Dx) Social History Tobacco [...] AM EDT Hospital Encounter Non-Invasive [place] [address] Arrived 02/22/2025 1:30 PM EDT Appointment H[place]ology [place] [address] 02/22/2025 2:30 PM EDT Office Visit Hematology [place] [phone] Ellis Childers MD [facility] DR HEMATOLOGY AND ONCOLOGY [place], [place] [phone] Felicita Landa APRN [facility] DR HEMATOLOGY AND ONCOLOGY [place], [place] [phone] documented as of this encounter Results * CTA of Chest [...] fibrillation documented in this encounter Care Teams Diesel Instructor Relationship Specialty Start Date End Date Radha Mckeon MD [address] [place] [address] PCP - General 09/23/10 documented as of this encounter
--- OUTSIDE RECORDS SUMMARY | 2024-07-24 17:32 | XMS_ITS | Encounter Summary ---
Author Organization [facility] [place] [address] Care Team Providers Care Health Center Assistant Name Role Phone Radha Mckeon MD Primary Care Provider [phone] Reason for Visit * Reason Onset Date Comments Medication Refill 08/09/2012 Encounter Details Date Type Department Care Team (Late st Contact Info) Description 08/09/2012 Refill Cardiology at [address] [phone] Diogo Robb PA [facility] [place] [address] Medication Refill Social History Tobacco Use Types [...] AM EDT Hospital Encounter Non-[place]vasive [place] [address] Arrived 02/22/2025 1:30 PM EDT Appointment Hematology and Oncology at [place] [address] 02/22/2025 2:30 PM EDT Office Visit Hematology and Oncology at [place] [address] Ellis Childers MD [facility] DR [place]Y [place] [address] Felicita Landa APRN [facility] DR [place]EM[place]OLOGY [place] [address] documented as of this encounter Visit Diagnoses Diagnosis Atrial fibrillation documented in this encounter Care Teams Health Center Assistant Relationship Specialty Start Date End Date Radha Mckeon MD [address] [place] [address] PCP - General 09/23/10 documented as of this encounter
--- OUTSIDE RECORDS SUMMARY | 2024-07-24 17:32 | XMS_ITS | Encounter Summary ---
Author Organization [facility] [place] [address] Care Team Providers Care Radiological Technologist Name Role Phone Radha Mckeon MD Primary Care Provider [phone] Encounter Details Date Type Department Care Team (Late st Contact Info) Description 10/19/2012 Telephone Cardiology at [address] [phone] Diogo Robb PA [facility] [place] [address] Social History Tobacco Use Types Packs/Day Years [...] Telephone Encounter - Diogo Robb PA - 10/19/2012 10:56 AM EST Event monitor issued. No events for 30 days. Second period of monitoring initiated and this demonstrated episodes of both SVT and afib that were symptomatic. As he has had a longstanding hx of intermittent breakthrough, without clear documentation of the rhythm but with presumption that this was afib,the monitor findings are helpful. Afib is present, though symptomatic burden is low. He reports a different sensation now of strong pounding associated with tachycardia which may correlate with SVT rather than afib. I have not yet seen the strips of recorded data but recommend completing the month monitoring and then revisit him in clinic to recommend a plan. documented in this encounter Plan of Treatment Upcoming Encounters Date Type Department Care Team (Late st Contact Info) Description 08/18/2024 11:00 AM EDT Hospital Encounter Non-Invasive [place] [address] Arrived 02/22/2025 1:30 PM EDT Appointment Hematology and Oncology at [place] [address] 02/22/2025 2:30 PM EDT Office Visit Hematology and Oncology at [place] [address] Ellis Childers MD [facility] [address] [place] [address] Felicita Landa APRN [facility] [address] [place] [address] documented as of this encounter Visit Diagnoses Not on filedocumented in this encounter Care Teams Radiological Technologist Relationship Specialty Start Date End Date Radha Mckeon MD [address] [place] [address] PCP - General 09/23/10 documented as of this encounter
--- OUTSIDE RECORDS SUMMARY | 2024-07-24 17:32 | XMS_ITS | Encounter Summary ---
Author Organization [facility] [place] [address] Care Team Providers Care Uranium Processing Supervisor Name Role Phone Radha Mckeon MD Primary Care Provider [phone] Encounter Details Date Type Department Care Team (Late st Contact Info) Description 10/19/2012 Orders Only Cardiology at [address] [phone] Diogo Robb, [facility] [place] [address] High risk medications (not anticoagulants) long-term use Social History Tobacco Use Types Packs/Day Years [...] AM EDT Hospital Encounter Non-Invasive [place] [address] Arrived 02/22/2025 1:30 PM EDT Appointment Hematology [place] [address] 02/22/2025 2:30 PM EDT Office Visit Hematology [place] [address] Ellis Childers MD [facility] [address] [place] [address] Felicita Landa APRN [facility] [place] [address] documented as of this encounter Results * (ABNORMAL) Basic Metabolic Panel (non-fasting) (11/15/2012 12:39 PM EST) [facility] Glucose 133 60 - 199 mg/dL CERNER MILLENNIUM Comment:Diabetes: >=200 mg/d L plus symptoms Blood Urea Nitrogen 19 10 - 20 mg/dL CERNER MILLENNIUM Creatinine 0.76(L) 0.80 - 1.50 mg/dL CERNER MILLENNIUM Comment: Please note that the pediatric reference intervals supplied above were not validated at [facility]. Results from pediatric patients should be interpreted [...] ORDERABL ES Performing Organization Address City/State/ZIP Co nm Phone Number [facility] documented in this encounter Visit Diagnoses Diagnosis High risk medications (not anticoagulants) long-term use Encounter for long-term (current) use of other medications documented in this encounter Care Teams Uranium Processing Supervisor Relationship Specialty Start Date End Date Radha Mckeon MD [address] [place] [address] PCP - General 09/23/10 documented as of this encounter
--- OUTSIDE RECORDS SUMMARY | 2024-07-24 17:32 | XMS_ITS | Encounter Summary ---
Author Organization [facility] [place] [address] Care Team Providers Care Toy Trains And Accessories Salesperson Name Role Phone Radha Mckeon MD Primary Care Provider [phone] Encounter Details Date Type Department Care Team (Late st Contact Info) Description 12/12/2012 7:37 AM EST Anesthesia Event [place] [address] Cezar Hennessy MD [facility] [address] [place] [address] Cullen Gutierres MD [facility] [place] [address] Anesthesia Record Procedure Summary Procedure Name Responsible Anesthesiologist Anesthesia Start Time Anesthesia Stop Time ELECTROPHYSIOLOGY PROCEDURE Cezar Hennessy MD 12/12/12 0737 12/12/12 1653 Events Date Time Event Comment 12/12/2012 0717 0737 Start 1653 Stop Meds * Agents No agents on file. * Blood No blood administrations on file. Lines, Drains, and Airways Type Details Placement Removal Urethral Catheter 12/12/12; 0800; indwelling double lumen catheter; latex; 16; inserted; 1; drainage bag to dependent drainage; 12/13/12; 0947 12/12/12 0800 by Janae Owusu RN 12/13/12 0947 by Naz Capone RN LDA Cath/EP Sheath 12/12/12; 0949; 5.5 Kazakh (Fr); Left; Femoral 12/12/12 0949 by Janae Owusu RN 12/12/12 1652 by Artie Bear RN LDA Cath/EP Sheath 12/12/12; 0949; 11 Kazakh (Fr); Left; Femoral 12/12/12 0949 by Janae Owusu RN 12/12/12 1653 by Artie Bear RN LDA Cath/EP Sheath 12/12/12; 0949; 8 Kazakh (Fr); Right; Femoral 12/12/12 0949 by Janae Owusu RN 12/12/12 1653 by Artie Bear RN LDA Cath/EP Sheath 12/12/12; 0950; 8 Kazakh (Fr); Right; Femoral 12/12/12 0950 by Janae Owusu RN 12/12/12 1653 by Artie Bear RN LDA Cath/EP Sheath 12/12/12; 0950; 8 Kazakh (Fr); Right; Internal jugular 12/12/12 0950 by Janae Owusu RN 12/12/12 1653 by Artie Bear RN (RETIRED) Arterial LIne 12/12/12; 0950; 12/12/12; 1653 12/12/12 0950 by Janae Owusu RN 12/12/12 1653 by Artie Bear RN documented in this encounter Social History [...] OR Notes * Anesthesia Postprocedure Evaluation - Cullen Gutierres MD - 12/15/2012 12:43 PM EST Patient: Malik Machado Procedure(s) Performed: Procedure(s): ELECTROPHYSIOLOGY PROCEDURE Patient location: PACU Post-op pain: Adequate analgesia despite 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 male. Procedure(s): ELECTROPHYSIOLOGY PROCEDURE Patient Active Problem List Diagnoses ??? S/P [...] back pain greater than 3 months duration Past Surgical History Procedure Date ??? Created by interface Entered not [...] / RIGHT/ROTATING PLATFORM CURVED Procedure Date: 01/14/2010 History Substance Use Topics ??? Smoking status: Former Smoker Quit date: 08/13/1983 ??? Smokeless tobacco: Never Used ??? Alcohol Use: No Allergies Allergen Reactions ??? Amitriptyline Hcl Palpitations Medications: MAR and/or home medications have been reviewed. Physical Exam: There were no vitals filed for this visit. There is no height or weight on file to calculate BMI. Airway Assessment: Mallampati: I TM distance: >3 FB Neck ROM: full Cardiovascular Assessment: Rhythm: irregular cardiovascular exam normal Pulmonary Assessment: pulmonary exam normal Dental Assessment: Misc Assessment: Anesthesia Plan: ASA 2 general, with a(n) intravenous induction 88kg 62 year m with hx of recurrent paroxysmal atrial fibrillation maintained on dofetilide.S/p multiple cardioversions and failed flecainide therapy(MD/QRS prolongation). 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 Plan discussed with EMILY. Nicho. Assessment: documented in this encounter Plan of Treatment Upcoming Encounters Date Type Department Care Team (Late st Contact Info) Description 08/18/2024 11:00 AM EDT Hospital Encounter Non-[place] [address] Arrived 02/22/2025 1:30 PM EDT Appointment Hematology [place] [address] 02/22/2025 2:30 PM EDT Office Visit Hematology [place] [address] Ellis Childers MD [facility] DR HEMATOLOGY [place] [address] Felicita Landa APRN [facility] DR HEMATOLOGY [place] [address] documented as of this encounter Visit Diagnoses Not on filedocumented in this encounter Care Teams Toy Trains And Accessories Salesperson Relationship Specialty Start Date End Date Radha Mckeon MD [address] [place] [address] PCP - General 09/23/10 documented as of this encounter
--- OUTSIDE RECORDS SUMMARY | 2024-07-24 17:32 | XMS_ITS | Encounter Summary ---
Author Organization [facility] [place] [address] Care Team Providers Care Director Of Catering Sales Name Role Phone Radha Mckeon MD Primary Care Provider [phone] Encounter Details Date Type Department Care Team (Latest Contact Info) Description 08/23/2012 1:47 PM EDT - 08/23/2012 11:59 PM EDT Hospital Encounter [place] [phone] CUSTOMER LIAISON, CM High risk medication use; A-fib; Atrial fibrillation Discharge Disposition: Home Social History [...] AM EDT Hospital Encounter Non-[place] [address] Arrived 02/22/2025 1:30 PM EDT Appointment Hematology [place] [address] 02/22/2025 2:30 PM EDT Office Visit Hematology [place] [address] Ellis Childers MD [facility] [address] [place] [address] Felicita Landa APRN [facility] [place] [address] documented as of this encounter Procedures Procedure Name Priority Date/Time Associated Diagnosis Comments CARDIAC EVENT MONITOR Routine 08/23/2012 2:00 PM EDT High risk medication use A-fib Atrial fibrillation documented in this encounter Results * Cardiac Event Monitor (08/23/2012 2:00 PM EDT) Anatomical Region Laterality Modality Other Narrative 09/28/2012 9:07 AM EST Event Monitor Report Quality of recordings submitted - Acceptable. Findings: 1. Baseline was submitted during sinus rhythm at 54 - 63 bpm. Jyothi Judge MD EP Service. Procedure Note Jyothi Judge MD - 09/28/2012 Event Monitor Report Quality of recordings submitted - Acceptable. Findings: 1. Baseline was submitted during sinus rhythm at 54 - 63 bpm. Jyothi Judge MD EP Service. Diogo Argueta MD CARDIAC SERVICES ORD ERABLES documented in this encounter Visit Diagnoses Diagnosis High risk medication use Encounter for long-term (current) use of other medications A-fib Atrial fibrillation Atrial fibrillation documented in this encounter Care Teams Director Of Catering Sales Relationship Specialty Start Date End Date Radha Mckeon MD [address] [place] [address] PCP - General 09/23/10 documented as of this encounter
--- OUTSIDE RECORDS SUMMARY | 2024-07-24 17:32 | XMS_ITS | Encounter Summary ---
[facility] [place] [address] Care Team Providers Care Site Acquisition Manager Name Role Phone Radha Mckeon MD Primary Care Provider [phone] Encounter Details Date Type Department Care Team (Latest Contact Info) Description 12/15/2012 1:19 AM EST - 12/16/2012 1:48 PM EST Hospital Encounter Intermediate [place] [address] Sanford Byrd MD [facility] [place] [address] Chest pain Discharge Disposition: Home Social History Tobacco [...] Sign Reading Time Taken Comments Blood Pressure 129/85 12/16/2012 7:52 AM EST Pulse 59 12/16/2012 7:52 AM EST Temperature 36.5 ??C (97.7 ??F) 12/16/2012 7:52 AM ES T Respiratory Rate 18 12/16/2012 7:52 AM EST Oxygen Saturation 99% 12/16/2012 7:52 AM EST Inhaled Oxygen Concentration - - Weight 85.4 kg (188 lb 4.4 oz) 12/15/2012 1:00 A M EST Height 182.9 cm (6') 12/15/2012 2:46 AM EST Body Mass Index 25.53 12/15/2012 1:00 AM EST documented in this encounter Discharge Instructions * Discharge Instructions* Yolanda Deutsch MD - 12/16/2012 12:22 PM EST Anticoagulation (???Blood Thinner?? ) Management upon Discharge: Reason for anticoagulation therapy: atrial fibrillation Your NEW Warfarin (Coumadin??) dosing instruction upon discharge is: (Follow this schedule below until your first INR check after discharge (usually in 2- 4 days): Day of discharge (day #1): 2 mg Day #2: 2 mg Day #3: 2 mg Day #4: 1 mg Follow up INR is scheduled on: 12/20/2012 INR Goal: 2-3 Expected duration of treatment: indetermined Provider/Team responsible for ongoing outpatient anticoagulation management: Provider/Team/Clinic: Dr. Mckeon in conjunction with MICK Dorsey at [facility] If you have not received a call from your provider within 24hrs of having your INR drawn, please call your outpatient provider for further dose instructions. Warfarin (Coumadin??) should be taken at the same time every day, preferably after 5pm. If taking Enoxaparin (Lovenox??) injections, continue taking until instructed to stop. (You will betaking this medication until your INR is in the therapeutic range for 24 hours.) The following table shows your most recent INR results and Warfarin (Coumadin??) Doses Recent Labs Basename 12/16/12 0909 12/15/12 0211 12/13/12 0554 INR 1.5* 1.9* 2.2* Hospital Date 12/15/2012 Coumadin Dose (mg) 1mg ?? Please review your Warfarin (Coumadin??) Pack upon discharge. ?? For your safety, it is very important to be aware of the following details related to taking ???blood thinning?? medications such as Coumadin. o Compliance: Take your medication exactly as directed. Missing a dose or taking more than you are scheduled to take could result in clotting or bleeding issues. o Signs and Symptoms to be reported include: increased pain, swelling or sudden shortness of breath severe headaches dizziness unusual bleeding or bruising changes in urine or bowel movement color coughing or spitting up of blood, or nosebleeds In the event that you should experience any of the above, seek medical attention. * Patient Instructions* Yolanda Deutsch MD - 12/16/2012 12:10 PM EST Please seek medical attention if your chest pain or swallowing pain do not continue to improve or get worse Please seek medical attention if you develop bleeding - blood in stool, urine, or coughing blood Please seek medical attention if you have recurrent fever. Follow up appointments: - INR check at Dr. Mckeon's office on 12/20/2012 at 0900 AM - labs and follow up with Dr. Mckeon on 12/23/2012 at 11:15 am If you need advise from electrophysilogy service, please call [phone] and ask to speak with electrophysiology doctor on duty. documented in this encounter Medications at Time of Discharge Medication Sig Dispensed Refills Start Date End Date baclofen (LIORESAL) 10 mg tablet Take 10 mg by mouth nightly as needed. simvastatin (ZOCOR) 10 mg tablet Take 10 mg by mouth nightly. aspirin 81 mg EC tablet Take 1 tablet by mouth daily for 90 days. 90 tablet 0 12/16/2012 03/16/2013 ibuprofen (ADVIL;MOTRIN) 400 mg tablet Take 1 tablet by mouth every 8 hours as needed for Pain for 5 days. 15 tablet 0 12/16/2012 12/21/2012 enoxaparin (LOVENOX) 40 mg/0.4 mL Syrg injection Inject 0.4 mLs subcutaneously 2 times daily for 4 days. 8 Syringe 0 12/16/2012 12/20/2012 colchicine (COLCRYS) 0.6 mg tablet Take 1 tablet by mouth 2 times daily. 5 tablet 0 12/16/2012 02/02/2013 warfarin (COUMADIN) 1 mg tablet Take 2 mg daily for 3 days then return to 1 mg daily dose 6 tablet 0 12/16/2012 09/07/2013 omeprazole (PRILOSEC) 40 mg capsule Take 1 capsule by mouth daily for 30 days. 30 capsule 0 12/13/2012 01/12/2013 fish oil-omega-3 fatty acids with vitamin E 1,000 mg Capsule Take 2,000 mg by mouth daily. 05/20/2022 acetaminophen (TYLENOL) 500 mg tabletIndications:h eadache disorder,pain Take 1,000 mg by mouth as needed. Indications: Headache Disorder, Pain 11/17/19 methadone (DOLOPHINE) 10 mg tablet Take 10 mg by mouth 2 times daily. 09/07/2013 metoprolol succinate (TOPROL-XL) 50 mg 24 hr tablet Take 75 mg by mouth daily. 12/18/2014 OXYcodone-acetamino phen (PERCOCET) 5-325 mg per tablet Take 1 tablet by mouth every 4 hours as needed. 12/18/2014 SUMAtriptan (IMITREX) 100 mg tablet Take 100 mg by mouth as needed. 11/23/2016 zolpidem (AMBIEN) 5 mg tablet Take 5 mg by mouth nightly as needed. 1 to 2 tabs hs prn 02/28/2018 glucosamine-chondro itin 500-400 mg tablet 01/13/2011 02/28/2018 documented as of this encounter Progress Notes * Melyssa Soriano RN - 12/16/2012 1:45 PM EST Reviewed discharge instructions with pt and spouse including medications and administration, and follow-up appointments. Lovenox teaching has been done and spouse states she feels comfortable doing the injections. IV and telemetry have been removed. Pt discharged to home with spouse. * Janet Eng MD - 12/16/2012 10:46 AM EST EP Inpatient Progress Note Patient ID: 62 y.o. M with PMHx of chronic A fib who failed DCCV and antiarrythmic therapy and underwent PVI on12/12/2012. He was discharged from the hospital on 12/13/2012. He is admitted in transfer from OSH for chest pain and fever. He describes respirophasic and supine chest pain with fevers of onset the evening [employer] (100.4 and 100.7 at home) without respiratory complaints of coughing, rhinorrhea, or nasalcongestion. He also reported some odynophagia. He denies exertional chest pain, SOB, LE edema, N/V,blood in urine or stool, diarrhea, abd pain. Active problems: - pleuritic chest pain - A fib s/p PIV 12/12/2012 on OAC, in NSR - chronic back pain - odynophagia - chronic thrombocytopenia, Plt ~ 100 as far back as 2009 Interval events: - reports that chest pain is better after initiation of NSAIDs and colchicine yesterday for pleuro-pericarditis - reports that odynophagia is also better, although still present - reports upper thigh weakness this morning, bilateral - echo showed nl LV function with no pericardial effusion - troponin trending down with negative CK, per discussion with Dr. Byrd this is expected result of a fib ablation - sputum CX gram stain negative - Sputum and blood Cx pending Temp: [36.2 ??C (97.2 ??F)-36.6 ??C (97.9 ??F)] Heart Rate: [59-81] Resp: [16-18] BP: (117-132)/(75-90) SpO2: [96 %-99 %] RA Telemetry with single PACs and PVCs PE: Pleasant male in NAD, up in the room and hallway HEENT: no pallor, no jaundice, oropharynx mucosa pink and intact CV: RRR, S1 S2 present, no murmurs, no rub noted on exam, JVP at 7 cm H2O above RA Pulm: CTAB, no w/r/r Extr: wwp, 2+ DP and radial pulses, bilat groin venous access sites with small areas of ecchymoses but soft and without bruits ECG 12/15/2012 - NSR 73, RBBB, LAD, nonspecific flattening of ST segment in V2, no ST depression or elevation, no KY depression, QTc 458 ms CXR - small bilateral R>L pleural effusions without HF and without consolidations TTE 12/15/2012: 1. Normal biventricular size and systolic function, LVEF65%. No wall motion abnormalities. Normal LV wall thickness. Doppler assessment is consistent with normal LV filling pressure. 2. Normal atrial size. 3. No hemodynamically significant valve disease. 4. No pericardial effusion is present. 5. Other findings as noted below. 6. Compared to ELOY performed 12/12/12, there is no significant change. Labs: Lab Results Component Value Date WBC 5.4 12/16/2012 HGB 13.3* 12/16/2012 HCT 38.4* 12/16/2012 MCV 91.2 12/16/2012 PLATELET 86* 12/16/2012 Recent Labs Basename 12/16/12 0909 NA 139 K 4.7 CL 105 CO2 26 BUN 20 CREATININE 0.80 GLUCOSE 113 12/15/2012 02:11 12/15/2012 09:59 12/15/2012 18:13 Troponin-T 0.44 (H) 0.31 (H) 0.25 (H) CK, Total 97 73 63 Recent Labs Basename 12/15/12 0211 SEDRATE 30* Lab Results Component Value Date CRP 74.9 12/15/2012 Sputum Cx suggestive of normal bennie BCX pending Assessment and Plan: 62 y.o. M with PMHx of chronic A fib who failed DCCV and antiarrythmic therapy and underwent PVI on12/12/2012. He was discharged from the hospital on 12/13/2012. He is re-admitted on 12/15 with positional and respirophasic chest pain and fever, without URI Sxs, and without exertional symptoms, also with odynophagia noted since awakening from the procedure. Work up since admission includes normal LVfunction with no regional WMAs, negative preliminary sputum Cx, CXR with small bilateral pleural effusions, positive troponin with negative CKs which would be expected s/p ablation procedure, elevated ESR and CRP. Based on the clinical presentation he has been treated with NSAIDs and colchicine for pleuropericarditis with symptomatic improvement. From discussion with echo staff his esophageal intubation for ELOY prior to a fib ablation was uneventful and without difficulty, thus less likely to suspect complications such as esophagitis or esophageal tear. Rare, but possible is esophagitis from the ablation itself, or LA perforation into esophagus. Given overall improvement with current treatment, we decided to defer EGD at this time, but to consider it if symptoms do not continue to improve, or if they worsen. Of note, platelet count at the time of ablation were 139,000, while during this admission platelet count was 88,000 and 86,000. The patient has a history of thrombocytopenia dating back to 2009, whenhis platelet count was around 100,000. Patient is unaware of this or any work up for this problem. As he has not had any bleeding or easy bruising, we recommend outpatient platelet count follow up and work up of thrombocytopenia. As patient has been hemodynamically stable, without fever, and with overall improvement of symptoms, he is ready for discharge today with PCP follow up in 1 week with CBC at that time, and with instructions to RTC if his symptoms worsen or do not continue to improve. - discharge today - continue ibuprofen and colchicine for 1 week duration. - f/u in 1 week with PCP with labs at that time to follow platelets, and ESR and CRP to follow up resolution of inflammation - RTC if odynophagia or pleuritic pain worsen or do not continue to improve Electrophysiology Attending Note I have interviewed and examined the patient and agree with the elements of the history, physical, lab database and assessment/plan as described by Dr. Deutsch in the note from today. He has had considerable improvement in his chest discomfort with anti- inflammatory agents. His fever has not recurred and he is feeling much improved. The likelihood of significant esophageal trauma is low and therefore we will not pursue endoscopy. However if his difficulty swallowing and chest discomfort persists, I would have a low threshold for GI evaluation and consideration of endoscopy. This likely represents pleuropericarditis related to his ablation procedure and we have expectationof full recovery. We plan discharge today with followup as planned previously. Greater than 30 minutes was spent in discharge. Janet Eng MD . * Janet Eng MD - 12/15/2012 2:04 PM EST EP inpatient Progress Note Patient ID: 62 y.o. M with PMHx of chronic A fib who failed DCCV and antiarrythmic therapy and underwent PVI on12/12/2012. He was discharged from the hospital on 12/13/2012. He is admitted in transfer from OSH for chest pain and fever. He describes respirophasic and supine chest pain with fevers of onset last evening (100.4 and 100.7 at home) without respiratory complaints of coughing, rhinorrhea, or nasal congestion. He denies exertional chest pain, SOB, LE edema, N/V, blood in urine or stool, diarrhea, abd pain. Active problems: - pleuritic chest pain - A fib s/p PIV 12/12/2012 on OAC, in NSR - chronic back pain Temp: [36.2 ??C (97.2 ??F)-36.9 ??C (98.4 ??F)] Heart Rate: [77-81] Resp: [18] BP: (118-144)/(80-90) SpO2: [91 %-98 %] RA PE: Pleasant male in NAD - ant chest pain with deep breathing and with lying down during exam HEENT: no pallor, no jaundice CV: RRR, S1 S2 present, no murmurs, no rub noted on exam Pulm: CTAB, no w/r/r Extr: wwp, 2+ PT and radial pulses, bilat groin venous access sites with small areas of ecchymoses but soft and without bruits ECG - NSR 73, RBBB, LAD, nonspecific flattening of ST segment in V2, no ST depression or elevation,no KY depression CXR - small bilateral R>L pleural effusions without HF and without consolidations TTE 12/15/2012: 1. Normal biventricular size and systolic function, LVEF65%. No wall motion abnormalities. Normal LV wall thickness. Doppler assessment is consistent with normal LV filling pressure. 2. Normal atrial size. 3. No hemodynamically significant valve disease. 4. No pericardial effusion is present. 5. Other findings as noted below. 6. Compared to ELOY performed 12/12/12, there is no significant change. Labs: Lab Results Component Value Date WBC 9.5 12/15/2012 HGB 13.3* 12/15/2012 HCT 39.0* 12/15/2012 MCV 91.1 12/15/2012 PLATELET 88* 12/15/2012 Recent Labs Basename 12/15/12 0211 NA 137 K 3.7 CL 101 CO2 26 BUN 12 CREATININE 0.80 GLUCOSE 101 12/15/2012 02:11 12/15/2012 09:59 Troponin-T 0.44 (H) 0.31 (H) CK, Total 97 73 Recent Labs Basename 12/15/12 0211 SEDRATE 30* Lab Results Component Value Date CRP 74.9 12/15/2012 Sputum Cx and BCX pending Assessment and Plan: 62 y.o. M with PMHx of chronic A fib who failed DCCV and antiarrythmic therapy and underwent PVI on12/12/2012. He was discharged from the hospital on 12/13/2012. He is admitted in transfer from OSH for chest pain and fever. He describes respirophasic and supine chest pain with fevers of onset last evening (100.4 and 100.7 at home) without respiratory complaints of coughing, rhinorrhea, or nasal congestion. He denies exertional angina or dyspnea. Troponin elevation without CK elavation likely 2/2a fib ablation, in the absence of ischemic ECG changes or echo findings or regional WMAs with normal LV fx. CXR does not reveal any consolidation, although atypical or viral PNA would present with more diffuse infiltrates rather than focal consolidation. The clinical presentation in the setting or recen pulm vein isolation/a fib ablation procedure is highly suggestive of pericarditis. He is hemodynamically stable, and in fact admits to improvement of chest pain after tylenol dose today. - echo, CXR, and cardiac enzymes done - ESR, CRP elevated, will trend prior to d/c - sputum and BCX done, I will discontinue abx at this time given low suspicion for infectious process, he has been afebrile since admission, however, if fever recurs would restart abx covering for HAP and bacteremia - resume normal diet - initiate antiinflammatory regimen for pericarditis with low dose ibuprofen (400 mg tid) given he is on coumadin, and addition of colchicine, with GI protection - patient was updated regarding working diagnoses and results of tests to date Plan as above discussed with Dr. Eng, EP attending. Electrophysiology Attending Note I have interviewed and examined the patient and agree with the elements of the history, physical, lab database and assessment/plan as described by Dr. Deutsch in the note from today. He is readmitted to the hospital 2 days after his ablation procedure (general anesthesia with intubation, transesophageal echocardiogram) with continued respirophasic chest discomfort, difficulty swallowing, and transient fever. Overnight, his chest discomfort has decreased slightly and the fever has not recurred. The differential diagnosis includes esophagitis//trauma from a transesophageal echo, pulmonary embolism, trauma related to his intubation, aspiration, and pleuropericarditis related to the ablation procedure. Given his lack of recurrent fever, we'll discontinue the antibiotics, initiate anti-inflammatory drugs, and continue aggressive antacid treatment. . Janet Eng MD . documented in this encounter H&P Notes * Micah Thrasher MD - 12/15/2012 2:18 AM EST Cardiology Admission H & P Patient Name: Ovidio Minor MRN No - [id number] Date of - 1950 Age - 62 y.o. Admission Date - 12/15/12 Inpatient Attending: Dr. Byrd Chief Complain: Generalized chest pain and insertion site pain, SOB Active Problem List: Patient Active Problem List Diagnoses ??? ','CAP (community acquired pneumonia) ??? Pleural effusion on left ??? Erosive esophagitis ??? S/P knee replacement Overview Note: SURGERY [...] batch of quick set cement. ??? A-fib Overview Note: 1) Recurrent AF -S/P cardioversions x 3 [...] by carto problem, completed withNavx) ??? Hypertension Overview Note: ??? RBBB (right bundle branch block with left anterior fascicular block) Overview Note: ??? Lumbar radiculopathy ??? Chronic back pain greater than 3 months duration Overview Note: On methadone and baclofen ??? Knee pain HPI: 62 y/o man chronic Afib with recent ablation on 12/12/12, HTN, RBBB, chronic back issue transferred from [facility] because of SOB and worsening chest pain. The pt had pulmonary vein isolation procedure done on Wednesday and he was discharged home on Wednesday.He never felt better after going home. He had SOB on very little exertion. Also he had chest pain all over the chest which was worsening with deep breathing. He said that his pain was 10/10 all the time for past two days and it was burning type w/o radiation to anywhere. He also developed cough productive of greenish sputum after going home. In addition last night he developed fever and it was 101.4 at one time and 101.7 at other time. So he was taken to the [place] per mentioned in his discharge summary. He was also having pain in catheter access site. At [place] his temp was 38.6C and he has normal BP and 96% sat on RA. His had a CXR done which showed left pleural effusion small size and infiltratein left lower lobe. He was given 2 gm of ceftriaxone and 750 mg of levaquine. Because of CP he was given 4 mg of morphine as well and tylenol for fever. He was transferred to [facility] for further management. Test Value WBC 9.5 HGB 14 Hct 41 Platelet 104 PT/INR 21.9/2.21 ApTT Test Value Cardiac Tests Results Na 134 Trops 1.14 K 3.8 CK Cl 100 CK-MB Hco3 30 BNP BUN 14 EKG NSR, RBBB, no significant change Cr 0.8 Ca 8.9 Glucose 115 UA neg AST ALT AlkP Albumin 84 83 115 3.7 On arrival to [facility] he was c/o CP on deep breathing, cough productive of green sputum and fever. He was having pain in legs with walking at catheter excess site. He said he usually have 8/10 chronic back pain and his cp is more worse than his back pain. At home he was able to eat w/o any nausea and vomiting. He feels some soreness in back of throat. He denied for any palpitation, dizziness, headache, nausea, vomiting, abdominal pain, any alteration in bowel or bladder habit. Past Medical History: Past Medical History Diagnosis Date ??? Chronic back pain greater than 3 months duration Past Surgical History: Past Surgical History Procedure Date ??? Created [...] / RIGHT/ROTATING PLATFORM CURVED Procedure Date: 01/14/2010 Family History: Father CO 54 years of age Mother angina in her 50's and 60's Social History History Social History ??? Marital Status: Single Spouse Name: N/A Number of Children: N/A ??? Years of Education: N/A Occupational History ??? Not on file. Social History Main Topics ??? Smoking status: Former Smoker Quit date: 08/13/1983 ??? Smokeless tobacco: Never Used ??? Alcohol Use: No ??? Drug Use: No ??? Sexually Active: Not on file Other Topics Concern ??? Not on file Social History Narrative ??? No narrative on file Review of System 12 comprehensive review of system was negative except for General - fever, no chills CVS - chest pain all over, no palpitation RS - SOB, cough productive of yellow sputum GI - no abdominal pain, nausea or vomiting Extremity - catheter access site pain, Musculoskeletal - chronic back and knee pain Home Medications: No current facility-administered medications on file prior to encounter. Current Outpatient Prescriptions on File Prior to Encounter Medication Sig Dispense Refill ??? warfarin (COUMADIN) 1 mg tablet Take 1 tablet by mouth every evening. ??? omeprazole (PRILOSEC) 40 mg capsule Take 1 capsule by mouth daily for 30 days. 30 capsule 0 ??? MULTIVITAMIN W-MINERALS/LUTEIN (CENTRUM SILVER ORAL) Take by mouth. ??? [place]-3 Fatty Acids-Vitamin E (FISH OIL) 1,000 mg Cap Take 1,000 mg by mouth 2 times daily. ??? acetaminophen (TYLENOL) 500 mg tablet Take 1,000 mg by mouth every 6 hours as needed. Indications: Headache Disorder, Pain ??? aspirin 325 mg tablet Take 325 mg by mouth daily. ??? baclofen (LIORESAL) 10 mg tablet Take 10 mg by mouth daily. ??? methadone (DOLOPHINE) 10 mg tablet Take 10 mg by mouth 2 times daily. ??? metoprolol succinate (TOPROL-XL) 50 mg 24 hr tablet Take 50 mg by mouth daily. ??? OXYcodone-acetaminophen (PERCOCET) 5-325 mg per tablet Take 1 tablet by mouth every 4 hours as needed. ??? simvastatin (ZOCOR) 10 mg tablet Take 10 mg by mouth nightly. ??? SUMAtriptan (IMITREX) 100 mg tablet Take 100 mg by mouth as needed. ??? zolpidem (AMBIEN) 5 mg tablet Take 5 mg by mouth nightly as needed. 1 to 2 tabs hs prn ??? glucosamine-chondroitin 500-400 mg tablet Allergies: Allergies Allergen Reactions ??? Amitriptyline Hcl Palpitations Physical Exam: Vitals: Patient Vitals for the past 24 hrs: BP Temp Pulse Resp SpO2 Weight 12/15/12 0138 144/89 mmHg 36.9 ??C (98.4 ??F) 77 18 91 % - 12/15/12 0100 - - - - - 85.4 kg (188 lb 4.4 oz) Exam: Constitutional: well built, lying in bed in moderate distress from pain HENT:head normocephalic, no evidence of trauma, no nasal or aural discharge, no exudates in oral cavity, oral mucosa appears moist Eyes: EOMI, no icterus or pallor, Neck: supple, no thyromegaly or lymphadenopathy CVS: Regular rhythm, normal S1and S2, no murmur, no gallop or rub, JVP ,Distal pulses 2+ bilaterally Pulmonary: decrease a/e on left base, no rales or rhonchi. GI: abdomen soft, NTND, bowel sounds positive, no rebound or gaurding, no organomegaly Musculoskeletal: no joint swellings or deformities Extremities: no edema, bruise at catheter access site, no hematoma or brui heard Skin: no rashes noted Neuro: no gross focal deficits on limited neuro exam Psych: mood and affect normal. Not anxious looking. Diagnostics: Reviewed personally ECG - NSR, left axis deviation, RBBB, no significant change CXR - (from [place]) - Left lower lobe pleural effusion and ?infiltrate as well, no acute cardiac shadowabnormality. Rib cage appears normal Labs: Recent Results (from the past 24 hour(s)) CBC (WITH DIFF) Component Value Range WBC 9.5 4.0 - 10.0 (x10(3)/mcL) RBC 4.28 (*) 4.63 - 6.08 (x10(6)/mcL) Hemoglobin 13.3 (*) 13.7 - 17.5 (gm/dL) Hematocrit 39.0 (*) 40.0 - 51.0 (%) MCV 91.1 79.0 - 92.0 (fL) MCH 31.1 25.6 - 32.2 (pg) MCHC 34.1 32.0 - 36.5 (gm/dL) Platelets 88 (*) 145 - 370 (x10(3)/mcL) RDWSD 39.5 35.0 - 46.0 (fL) RDWCV 12.0 10.9 - 14.4 (%) MPV 11.9 9.0 - 12.0 (fL) COMPREHENSIVE METABOLIC PANEL (NON-FASTING) Component Value Range Glucose Lvl 101 60 - 199 (mg/dL) BUN 12 10 - 20 (mg/dL) Creatinine 0.80 0.80 - 1.50 (mg/dL) Sodium 137 135 - 145 (mmol/L) Potassium 3.7 3.5 - 5.0 (mmol/L) Chloride 101 98 - 107 (mmol/L) CO2 26 22 - 31 (mmol/L) Anion Gap 10 5 - 15 (mmol/L) Calcium 8.7 8.5 - 10.5 (mg/dL) Total Protein 6.9 6.4 - 8.3 (gm/dL) Albumin 4.1 3.2 - 5.2 (gm/dL) AST 75 (*) 0 - 39 (unit/L) ALT 55 0 - 55 (unit/L) Alk Phos 81 40 - 120 (unit/L) Total Bilirubin 0.9 0.2 - 1.3 (mg/dL) Bili, Direct 0.2 0.0 - 0.3 (mg/dL) Estimated GFR >60 >=60 PROTHROMBIN TIME Component Value Range PT 22.4 (*) 11.9 - 14.7 (sec) INR 1.9 (*) 0.9 - 1.1 APTT Component Value Range PTT 46 (*) 25 - 35 (sec) MAGNESIUM Component Value Range Magnesium 0.72 0.69 - 1.07 (mmol/L) CARDIAC ENZYMES Component Value Range Troponin-T 0.44 (*) <=0.03 (ng/mL) CK, Total 97 0 - 200 (unit/L) SCAN, PERIPHERAL BLOOD Component Value Range Plat Estimate Decreased RBC Morphology Normal DIFFERENTIAL, AUTOMATED Component Value Range Neutrophils % 71.7 (*) 34.0 - 71.0 (%) Neutr Abs (ANC) 6.82 (*) 1.50 - 6.30 (x10(3)/mcL) Lymphocytes % 15.0 (*) 19.0 - 53.0 (%) Lymphocytes Abs 1.4 1.0 - 3.6 (x10(3)/mcL) Monocytes % 12.6 4.0 - 13.0 (%) Monocyte Abs 1.2 (*) 0.2 - 1.0 (x10(3)/mcL) Eosinophils % 0.5 0.0 - 7.0 (%) Eosinophils Abs 0.0 0.0 - 0.5 (x10(3)/mcL) Basophils % 0.1 0.0 - 2.0 (%) Basophils Abs 0.0 0.0 - 0.2 (x10(3)/mcL) Immature Gran % 0.10 0.00 - 0.66 (%) Sho Gran Abs 0.01 0.00 - 0.05 (x10(3)/mcL) Cardiology Investigation: ELOY 12/12/12 1. No thrombus or mass/vegetation was visualized [...] There is no hemodynamically significant valve disease. Assessment and Plan: Left pleural effusion/?CAP - This is a 62 y/o man [place] with recent Afib ablation at [facility] on 12/12/12 for CP worsening with deep Breathing and 08/10, burning type associated with cough productive of yellow sputum with development of fever of 101.4 F last night. [place] CX[place] showed left pleural effusion with ? LLL infiltrate. He was already given abx at [place]. Also he has general anesthesia during the procedure and had ELOY during the procedure which might have cause some erosive esophagitis causing burning type of CP. He was able to eat and tolerate the food. At this time doesn't seems like any perforation as it will be more dramatic presentation still will keep esophageal perforation in d/d. I do not see any air in mediastinum as well as pt is not having any vomtiing which would be present in perforation of esophagus. Will admit the pt to [facility] for further management. Admit to [facility] Telemetry Routine labs and ECG Levaquine 750 mg IV daily Sputum culture Clear liquid diet for now Tylenol for fever Morphine for CP control Repeat CXR if worsening symptoms and consider CT scan Erosive esophagitis - will also keep the esophageal perforation in d/d but low probability Maalox PO Cont PPI Liquid diet Elevated cardiac enzymes - pt had an ablation procedure recently which can lead to elevated cardiacenzymes for days given the intracardiac manipulations Monitor Catheter Access site pain - no hematoma. Some bruises present but this is a usual after the procedure. Usually this is self limiting. Cont tylenol and morphine PRN bases Chronic back pain - cont methadone Anticoagulation - with warfarin and will cont the same given recent procedure and risk of thrombus formation Cont monitor H/h HTN Cont toprol Xl Diet - clear liquid DVT prophy - therapeutic INR Code status - Full code More than 70 mins time spent in clinical decision making Provider: Micah Thrasher Pager: [phone] documented in this encounter Procedure Notes * Provider, Scanning - 12/26/2012 10:05 AM ESTAssociated Order(s): SCAN DOC: LAB * Provider, Scanning - 12/17/2012 4:49 PM ESTAssociated Order(s): SCAN DOC: BREASTER documented in this encounter Miscellaneous Notes * Miscellaneous - Provider, Scanning - 12/17/2012 4:49 PM EST * Miscellaneous - Provider, Scanning - 12/16/2012 4:31 PM EST * Miscellaneous - Provider, Scanning - 12/16/2012 4:17 PM EST * Discharge Summary - Yolanda Deutsch MD - 12/16/2012 11:23 AM EST Inpatient Hospital Medicine - Discharge Summary Patient Name: Ovidio Minor Patient Age: 62 y.o. Birthdate: 1950 Admit date: 12/15/2012 Discharge date and time: 12/16/2012 Attending Physician: Sanford Byrd MD Discharge Diagnoses (Hospital Problems) and Secondary Diagnoses (Chronic Problems): Active Hospital Problems Diagnoses ??? Acute pleuropericarditis s/p atrial fibrillation ablation ??? Thrombocytopenia - chronic ??? Odynophagia s/p Atrial fibrillation and ELOY Resolved Hospital Problems Diagnoses Date Resolved Active Non-Hospital Problems Diagnoses ??? S/P knee replacement SURGERY DATE: 01/14/2010 MICHAEL CHAVEZ MD PROCEDURE PERFORMED: Right total knee arthroplasty. IMPLANTS USED: All implants were from the [employer] total knee system. 1. A size 4 [...] On methadone and baclofen ??? Knee pain Thrombocytopenia Operations/Major Procedures: Operations: None Other Major Procedures: none History of Presentation: 62 y/o man chronic Afib with recent ablation on 12/12/12, HTN, RBBB, chronic back issue transferred from [facility] because of SOB and worsening chest pain. The pt had pulmonary vein isolation procedure done on Wednesday and he was discharged home on Wednesday.He never felt better after going home. He had SOB on very little exertion. Also he had chest pain all over the chest which was worsening with deep breathing. He said that his pain was 10/10 all the time for past two days and it was burning type w/o radiation to anywhere. He also developed cough productive of greenish sputum after going home. In addition last night he developed fever and it was 101.4 at one time and 101.7 at other time. So he was taken to the [place] per mentioned in his discharge summary. He was also having pain in catheter access site. [place] his temp was 38.6C and he has normal BP and 96% sat on RA. His had a CXR done which showed left pleural effusion small size and infiltratein left lower lobe. He was given 2 gm of ceftriaxone and 750 mg of levaquine. Because of CP he was given 4 mg of morphine as well and tylenol for fever. He was transferred to [facility] for further management. Hospital Course: 62 y.o. M with PMHx of chronic A fib who failed DCCV and antiarrythmic therapy and underwent PVI on12/12/2012. He was discharged from the hospital on 12/13/2012. He is re-admitted on 12/15 with positional and respirophasic chest pain and fever, without URI Sxs, and without exertional symptoms, also with odynophagia noted since awakening from the procedure. Work up since admission includes normal LVfunction with no regional WMAs, negative preliminary sputum Cx, CXR with small bilateral pleural effusions, positive troponin with negative CKs which would be expected s/p ablation procedure, elevated ESR and CRP. Based on the clinical presentation he has been treated with NSAIDs and colchicine for pleuropericarditis with symptomatic improvement. From discussion with echo staff his esophageal intubation for ELOY prior to a fib ablation was uneventful and without difficulty, thus less likely to suspect complications such as esophagitis or esophageal tear. Rare, but possible is esophagitis from the ablation itself, or LA perforation into esophagus. Given overall improvement with current treatment, we decided to defer EGD at this time, but to consider it if symptoms do not continue to improve, or if they worsen. Of note, platelet count at the time of ablation were 139,000, while during this admission platelet count was 88,000 and 86,000. The patient has a history of thrombocytopenia dating back to 2009, whenhis platelet count was around 100,000. Patient is unaware of this or any work up for this problem. As he has not had any bleeding or easy bruising, we recommend outpatient platelet count follow up and work up of thrombocytopenia. As patient has been hemodynamically stable, without fever, and with overall improvement of symptoms, he is ready for discharge today with PCP follow up in 1 week with CBC at that time, and with instructions to RTC if his symptoms worsen or do not continue to improve. Patient's INR is 1.5 at the time of discharge, he is on coumadin with goal INR 2-3. He will be discharged with a higher dose of coumadin: 2 mg daily for 3 days with return to his usual 1 mg daily dose after, with INR check scheduled at his PCP office on 12/20 and with lovenox bridge 0.5 mg bid untilINR reaches 2.0 - discharge today - continue ibuprofen and colchicine for 1 week duration. - f/u in 1 week with PCP with labs at that time to follow platelets, and ESR and CRP to follow up resolution of inflammation - RTC if odynophagia or pleuritic pain worsen or do not continue to improve Important Studies and Lab Data: Labs: Lab Results Component Value Date WBC 5.4 12/16/2012 HGB 13.3* 12/16/2012 HCT 38.4* 12/16/2012 MCV 91.2 12/16/2012 PLATELET 86* 12/16/2012 Recent Labs Basename 12/16/12 0909 NA 139 K 4.7 CL 105 CO2 26 BUN 20 CREATININE 0.80 GLUCOSE 113 12/15/2012 02:11 12/15/2012 09:59 12/15/2012 18:13 Troponin-T 0.44 (H) 0.31 (H) 0.25 (H) CK, Total 97 73 63 Recent Labs Basename 12/15/12 0211 SEDRATE 30* Lab Results Component Value Date CRP 74.9 12/15/2012 Preliminary sputum Cx suggestive of normal bennie Blood culture pending Studies: ECG 12/15/2012 - NSR 73, RBBB, LAD, nonspecific flattening of ST segment in V2, no ST depression or elevation, no [place] depression, QTc 458 ms CXR - small bilateral R>L pleural effusions without HF and without consolidations TTE 12/15/2012: 1. Normal biventricular size and systolic function, LVEF65%. No wall motion abnormalities. Normal LV wall thickness. Doppler assessment is consistent with normal LV filling pressure. 2. Normal atrial size. 3. No hemodynamically significant valve disease. 4. No pericardial effusion is present. 5. Other findings as noted below. 6. Compared to ELOY performed 12/12/12, there is no significant change. Pending Studies and Lab Data: The patient will need the following 3 tests completed on: 12/14/2012 1. Lower Respiratory Culture Sputum Expectorated 3. Blood culture 2. Blood culture Authorizing Provider: Micah Crockett MD, Janet Eng MD Discharge Conditions/Prognosis: - Acute pleuropericarditis s/p atrial fibrillation ablation on 12/12/2012 - Odynophagia s/p uncomplicated ELOY and intubation on 12/12/2012 Discharge to: - home Discharge Medications: Current Discharge Medication List New Meds Dose Details aspirin 81 mg 81 mg Take 81 mg by mouth daily. Qty: 90 tablet Refills: 0 colchicine (COLCRYS) 0.6 mg 0.6 mg Take 0.6 mg by mouth 2 times daily. Qty: 5 tablet Refills: 0 ibuprofen (ADVIL;MOTRIN) 400 mg 400 mg Take 400 mg by mouth every 8 hours as needed for Pain. Qty: 15 tablet Refills: 0 enoxaparin (LOVENOX) 40 mg 40 mg Inject 40 mg subcutaneously 2 times daily. Qty: 8 Syringe Refills: 0 Continued medications with revised dosing Dose Details warfarin (COUMADIN) 1 mg tablet Take 2 mg daily for 3 days then return to 1 mg daily dose Qty: 6 tablet Refills: 0 Continued medications, unchanged Dose Details omeprazole (PRILOSEC) 40 mg 40 mg Take 40 mg by mouth daily. Qty: 30 capsule Refills: 0 MULTIVITAMIN W-MINERALS/LUTEIN (CENTRUM SILVER ORAL) Take by mouth. [place]-3 Fatty Acids-Vitamin E 1,000 mg 1,000 mg Take 1,000 mg by mouth 2 times daily. acetaminophen (TYLENOL) 1,000 mg 1,000 mg Take 1,000 mg by mouth every 6 hours as needed. baclofen (LIORESAL) 10 mg 10 mg Take [...] mg Take 10 mg by mouth nightly. SUMAtriptan (IMITREX) 100 mg 100 mg Take 100 mg by mouth as needed. zolpidem (AMBIEN) 5 mg 5 mg Take 5 mg by mouth nightly as needed. 1 to 2 tabs hs prn glucosamine-chondroitin 500-400 mg tablet Medications STOPPED Dose aspirin 325 mg 325 mg Updated Allergies/ADRs: Allergies Allergen Reactions ??? Amitriptyline Hcl Palpitations Follow-up Recommendations for Providers: - please follow INR with 2-3 range goal - patient has a f/u appointment for INR check with Dr. Mckeon on 12/20, please fax the result to Dr. Byrd's attention at [facility] at [phone] and call his office if you have any questions regarding dosing - please follow up platelet count to assure it remains stable and consider work up for etiology of chronic thrombocytopenia Follow up appointments: - INR check at Dr. Mckeon's office on 12/20/2012 at 0900 AM - labs and follow up with Dr. Mckeon on 12/23/2012 at 11:15 am Instructions Given to Patient at Discharge: Provider Instructions Please seek medical attention if your chest pain or swallowing pain do not continue to improve or get worse Please seek medical attention if you develop bleeding - blood in stool, urine, or coughing blood Please seek medical attention if you have recurrent fever. If you need advise from electrophysilogy service, please call [phone] and ask to speak with electrophysiology doctor on duty. Provider Contact Information: Dr. Byrd, [facility]: [phone] Discharge References/Attachments: Discharge References/Attachments None For questions regarding this document or issues relating to this hospitalization on the Medical Service, please contact your inpatient physician through the [facility] [employer] . Issues afterhours and on weekends will be handled by the Hospitalist staff on-call. Signed: YOLANDA DEUTSCH MD 12/16/2012 documented in this encounter Plan of Treatment Upcoming Encounters Date Type Department Care Team (Late st Contact Info) Description 08/18/2024 11:00 AM EDT Hospital Encounter Non-[place] [phone] Arrived 02/22/2025 1:30 PM EDT Appointment Hematology [place] [phone] 02/22/2025 2:30 PM EDT Office Visit Hematology [place] [phone] Ellis Childers MD [facility] [address] [place] [address] Felicita Landa APRN [facility] [address] [place] [address] documented as of this encounter Procedures Procedure Name Priority Date/Time Associated Diagnosis Comments LAB SCAN 12/26/2012 10:05 AM EST BREASTER SCAN 12/17/2012 4:49 PM EST DIFFERENTIAL, AUTOMATED Timed 12/16/19 9:09 AM EST PROTHROMBIN TIME Timed 12/16/2012 9:09 AM EST CBC (WITH DIFF) Timed 12/16/2012 9:09 AM EST BASIC METABOLIC PANEL Timed 12/16/2012 9:09 AM EST CARDIAC ENZYMES ([facility]) STAT 12/15/2012 6:13 PM EST LOWER RESPIRATORY CULTURE Routine 12/15/2012 1:03 PM EST ECHOCARDIOGRAM TRANSTHORACIC Routine 12/15/2012 12:43 PM EST Chest pain XR CHEST PA AND LATERAL Routine 12/15/19 13 10:30 AM EST BLOOD CULTURE STAT 12/15/2012 10:06 AM EST CARDIAC ENZYMES ([facility]) STAT 12/15/2012 9:59 AM EST BLOOD CULTURE STAT 12/15/2012 9:59 AM EST SCAN, PERIPHERAL BLOOD STAT 3 2:11 AM EST DIFFERENTIAL, AUTOMATED STAT 12/15/19 13 2:11 AM EST CARDIAC ENZYMES ([facility]) STAT 12/15/2012 2:11 AM EST APTT STAT 12/15/2012 2:11 AM EST SEDIMENTATION RATE STAT 12/15/2012 2: 11 AM EST PROTHROMBIN TIME STAT 12/15/2012 2:11 AM EST CBC (WITH DIFF) STAT 12/15/2012 2:11 AM EST CRP, CARDIAC RISK (HS CRP) STAT 12/15/2012 2:11 AM EST MAGNESIUM STAT 12/15/2012 2:11 AM EST COMPREHENSIVE METABOLIC PANEL STAT 12/15/2012 2:11 AM EST EKG 12-LEAD STAT 12/15/2012 1:51 AM EST Chest pain documented in this encounter Results * SCAN DOC: LAB (12/26/2012 10:05 AM EST) Narrative 12/26/2012 10:05 AM EST Procedure Note Provider, Scanning - 12/26/2012 10:05 AM EST Scanning Provider MEDIA MGR SCAN EXT O RDR/RSLT * SCAN DOC: BREASTER (12/17/2012 4:49 PM EST) Anatomical Region Laterality Modality Other Narrative Transcriptions Provider, Scanning - 12/17/2012 4:49 PM EST Scanning Provider MEDIA MGR SCAN EXT O RDR/RSLT * Differential, Automated (12/16/2012 9:09 AM EST) Neutrophil % 65.0 34.0 - 71.0 % CERNER MILLENNIUM Neutrophil Absolute 3.50 1.50 - 6.30 x10(3)/mcL CERNER MILLENNIUM Lymph % 19.0 19.0 - 53.0 % CERNER MILLENNIUM Lymphocytes Abs 1.0 1.0 - 3.6 x10(3)/mcL CERNER MILLENNIUM Monocyte % 12.1 4.0 - 13.0 % CERNER MILLENNIUM Monocyte Abs 0.6 0.2 - 1.0 x10(3)/mcL CERNER MILLENNIUM Eos % 3.5 0.0 - 7.0 % CERNER MILLENNIUM Eosinophils Abs 0.2 0.0 - 0.5 x10(3)/mcL CERNER MILLENNIUM Basophil % 0.2 0.0 - 2.0 % CERNER MILLENNIUM Baso Absolute 0.0 0.0 - 0.2 x10(3)/mcL CERNER MILLENNIUM Immature Gran % 0.20 0.00 - 0.66 % CERNER MILLENNIUM Comment: Immature granulocytes(IG's)percentage and absolute count will include metamyelocytes, myelocytes, and promyelocytes. Blood smears from CBCs yielding IG's will be scanned manually for concordance. If this scan disagrees with the automated IG or if promyelocytes are noted, a manual differential will be performed. Immature Gran Absolute 0.01 0.00 - 0.05 x10(3)/mcL CERNER MILLENNIUM Blood specimen (specimen) 12/16/2012 9:09 AM EST 12/16/2012 9:17 AM EST Sanford Byrd MD HEMATOLOGY ORDERABLE S Performing Organization Address [facility] de Phone Number [facility] * (ABNORMAL) Prothrombin Time (12/16/2012 9:09 AM EST) Prothrombin Time 18.7(H) 11.9 - 14.7 sec [facility] MILL[facility] Comment: [facility] Transfusion Committee Guidelines: INR less than 2.0, PTT less than OR equal to 43.5 seconds, or Fibrinogen greater than or equal to 100 mg/dl indicate adequate procoagulant activity for hemostasis in patients without underlying bleeding disorders. International Normalization Ratio 1.5(H) 0.9 - 1.1 [facility] MILLENNIUM Blood specimen (specimen) 12/16/2012 9:09 AM EST 12/16/2012 9:17 AM EST Narrative Resulting Agency Comment Spec In Lab Sanford Byrd MD HEMATOLOGY ORDERABLE S Performing Organization Address [facility] Phone Number [facility] MARYVALEGAIL ROTH * Basic Metabolic Panel (non-fasting) (12/16/2012 9:09 AM EST) Glucose 113 60 - 199 mg/dL [facility] Comment:Diabetes: >=200 mg/d L plus symptoms Blood Urea Nitrogen 20 10 - 20 mg/dL CERNER MILLENNIUM Comment:result rechecked-kml Creatinine 0.80 0.80 - 1.50 mg/dL [facility] MILLENNIUM Comment: Please note that the pediatric reference intervals supplied above were not validated at [facility]. Results from pediatric patients should be interpreted in conjunction to the patient's age, height and muscle mass. Sodium 139 135 - 145 mmol/L [facility] MILLENNIUM Potassium 4.7 3.5 - 5.0 mmol/L [facility] MILLENNIUM Comment: Please note: ??Patients with WBC >100,000 may have falsely elevated Potassium levels. ??For accurate Potassium quantification in these patients send serum separator tube (gold top) for subsequent determinations. ??Contact the Clinical Chemistry Laboratory if there are any questions. Chloride 105 98 - 107 mmol/L CERNER MILLENNIUM Carbon Dioxide 26 22 - 31 mmol/L CERNER MILLENNIUM Anion Gap 8 5 - 15 mmol/L CERNER MILLENNIUM Calcium 9.0 8.5 - 10.5 mg/dL CERNER MILLENNIUM Est [...] J Am Soc Nephrol;6:1963-72. Blood specimen (specimen) 12/16/2012 9:09 AM EST 12/16/2012 9:17 AM EST Narrative Resulting Agency Comment Spec In Lab Sanford Byrd MD CHEMISTRY ORDERABLES Performing Organization Address [facility] Co de Phone Number CERNER MILLENNIUM * (ABNORMAL) CBC (with Diff) (12/16/2012 9:09 AM EST) White Blood Cell 5.4 4.0 - 10.0 x10(3)/mc L CERNER MILLENNIUM Red Blood Cell 4.21(L) 4.63 - 6.08 x10(6)/mc L CERNER MILLENNIUM Hemoglobin 13.3(L) 13.7 - 17.5 gm/dL CERNER MILLENNIUM Hematocrit 38.4(L) 40.0 - 51.0 % CERNER MILLENNIUM Mean Cell Volume 91.2 79.0 - 92.0 fL CERNER MILLENNIUM Mean Cell Hemoglobin 31.6 25.6 - 32.2 pg CERNER MILLENNIUM Mean Cell Hemoglobin Concentration 34.6 32.0 - 36.5 gm/dL CERNER MILLENNIUM Platelet 86(L) 145 - 370 x10(3)/mc L CERNER MILLENNIUM RDW Standard Deviation 40.3 35.0 - 46.0 fL CERNER MILLENNIUM RDW coefficient of variation 12.1 10.9 - 14.4 % CERNER MILLENNIUM Mean Platelet Volume 12.0 9.0 - 12.0 fL CERNER MILLENNIUM Blood specimen (specimen) 12/16/2012 9:09 AM EST 12/16/2012 9:17 AM EST Narrative Resulting Agency Comment Spec In Lab Sanford Byrd MD HEMATOLOGY ORDERABLE S Performing Organization Address City/[facility]/ZIP Co de Phone Number CERGAIL MILLENNIUM * (ABNORMAL) Cardiac Enzymes (12/15/2012 6:13 PM EST) Troponin-T 0.25(H) <=0.03 ng/mL CERNER MILLENNIUM Comment: 0.03 ng/mL: Represents the 99th percentile upper reference limit for normals. >0.03 ng/mL: Elevated cardiac troponin T level indicative of myocardial damage. Diagnosis of acute, evolving or recent CO requires a typical rise and gradual fall of cTnT with at least ONE of the following: a) Ischemic symptoms b) Development of pathologic Q waves on the ECG c) ECG changes indicative of eschemia (S-T segment elevation/depression) d) Coronary artery intervention Serial bloods should be obtained for testing on admission, at 6 to 9 hrs and again at 12 to 24 hrs if earlier samples are negative and the clinical index of suspicion is high. Reference: [Myocardial infarction redefined a consensus document of the Joint Society of Cardiology/[place] College of [employer]iology Committee for the redefinition of myocardial infarction. Journal of the [place] College of [employer]iology 2000; 36: 959-969] Creatine Kinase 63 0 - 200 unit/L HELEN ROTH Blood specimen (specimen) 12/15/2012 6:13 PM EST 12/15/2012 6:24 PM EST Narrative Resulting Agency Comment Spec In Lab Micah Crockett MD CHEMISTRY ORDERABLES [facility] * Lower Respiratory Culture Sputum Expectorated (12/15/2012 1:03 PM EST) Lower Respiratory Culture ? Patient Name: OVIDIO MINOR ?Ordered By: JANET ENG ? MR#: [id number] ?LOC: ??[facility] ? /Sex: ??1950 (62 years), ? Male ? PROCEDURE: Lower Respiratory Culture ?SOURCE: Sputum ? COLLECTED: 12/15/2012 13:03 ? STARTED: 12/15/2012 14:03 ? STAINS / PREPARATIONS ? Gram Stain Report ? Verified:2012 15:14 ? Few White Blood Cells seen ? Few squamous epithelial cells seen ? Rare mixed bacterial morphotypes suggestive of normal upper respiratory ? bennie ? FINAL REPORT ? Final Report ? Verified:2012 09:48 ? Rare mixed bacterial morphotypes suggestive of normal upper respiratory ? bennie ? PRELIMINARY REPORT ? Preliminary Report ? Verified:2012 10:57 ? Rare mixed bacterial morphotypes suggestive of normal upper respiratory ? bennie ? HELEN ROTH Sputum specimen (specimen) 12/15/2012 1:03 PM EST 12/15/2012 2:02 PM EST Narrative Resulting Agency Comment Spec In Lab Janet Eng MD MICROBIOLOGY - GENE RAL ORDERABLES Performing Organization Address City/State/[facility] Co de Phone Number [facility] * Echo Transthoracic (Complete) (12/15/2012 12:43 PM EST) EF 65 HEARTLAB SYSTEM Anatomical Region Laterality Modality Other 12/15/2012 Narrative 12/15/2012 2:01 PM EST Procedure: ? Transthoracic Echocardiogram Patient: ? MILY Foreman ? (Age): 1950(62) Med Rec#: ?[id number] ? Sex: ?M ? Site Loc: ?[facility] ? Ht / Wt: ??183(cm)/85(kg) Pt. Loc: ? Adult Floor ?BSA: ?2.08 Study Date: ?12/15/2012 ? Pt. Type: Inpatient Tape: ? Referring: Janet Eng Die Cut Operator: Dania Dorado [facility] Interpreting Fellow: Marcin Victor ([id number]) Diagnosis: ??Chest pain (786.50) CPT Code(s): ??Echo Full (64798), ??Spectral Doppler (63727), ??Color Doppler (77918), Indication(s): ??Pericardial effusion, R/O Rhythm: Sinus HR ?BP ?122/80 ?? SUMMARY: 1. Normal biventricular size and systolic function, LVEF65%. No wall motion abnormalities. Normal LV wall thickness. Doppler assessment is consistent with normal LV filling pressure. 2. Normal atrial size. 3. No hemodynamically significant valve disease. 4. No pericardial effusion is present. 5. Other findings as noted below. 6. Compared to ELOY performed 12/12/12, there is no significant change. FINDINGS: Left Ventricle ?Left ventricular chamber size, wall thickness, global and segmental systolic function are within normal limits. Ejection fraction is estimated to be 65%. ?The left ventricular chamber size is normal. ?There are no left ventricular segmental wall motion abnormalities. ?Doppler assessment is consistent with normal left sided filling pressure. Left Atrium ?The left atrium is normal in size. Right Ventricle ?Right ventricular chamber size, wall thickness, and systolic function are within normal limits. ?The estimated pulmonary artery systolic pressure is 17 mmHg. ?The estimated right atrial pressure is 3 mmHg. Right Atrium ?The right atrium is normal in size. Aortic Valve ?The aortic valve is probably tricuspid. ?There is no evidence of aortic valve stenosis. ?There is a trace of aortic regurgitation present. Mitral Valve ?The mitral valve appears normal in structure and function. ?There is trace mitral regurgitation present. Tricuspid Valve ?The tricuspid valve appears normal in structure and function. ?There is trace tricuspid regurgitation present. Pulmonic [...] ? Mid-Inferior ?Normal ? Mid-Inferoseptal ?Normal ? Lynden-Septal ? Normal ? Lynden-Anterior ? Normal ? Lynden-Lateral ?Normal ? Lynden-Inferior ? Normal ? Lynden-Tip ?Normal ? Chambers ?Value ?Units (Range) ? LV EF Est ? 65 ? % (55 to 80) ? IVSd MM ? 1 ?cm (0.3 to 1.1) ? LVIDd MM ?5.3 ?cm (3.7 to 5.6) ? PWd MM ?1 ?cm (0.6 to 1.1) ? LVIDs MM ?3.4 ?cm (2.3 to 3.9) ? LVFS MM ? 36 ? % (28 to 42) ? LV mass ? 200.4 ?gm ? LA area ? 20 ? cm2 (<21) ? RA area ? 17 ? cm2 (<18) ? Ao root ? 3.1 ?cm (2.1 to 3.6) ? Asc Ao ?3.3 ?cm (2 to 3.5) ? Mitral Valve ?Value ?Units (Range) ? E peak ?0.8 ?m/sec ? E/A ratio ? 1.6 ?ratio ? MVDT ?195 ?msec ? E1 ?0.09 ? m/sec ? E/E1 ?8 ?ratio ? Tricuspid/Pulmonic Valves ?Value ?Units (Range) ? TR peak isabel ? 1.9 ?m/sec ? RAP ? 3 ?mmHg ? RVSP/PASP ? 17 ? mmHg ? This report has been electronically signed by: Dave Menjivar MD ? 12/15/2012 14:01:08 Images reviewed and interpretation verified [facility] Cardiac Ultrasound Laboratory Procedure Note Dave Luis MD - 12/15/2012 Procedure: Transthoracic Echocardiogram Patient: MILY CLINTON(Age): 1950(62) Med Rec#: [id number] Sex: M Site Loc: [facility] [place] Ht / Wt: 183(cm)/85(kg) Pt. Loc: Adult Floor BSA: 2.08 Study Date: 12/15/2012 Pt. Type: Inpatient Tape: Referring: Janet Eng Die Cut Operator: Dania Dorado RDCS Interpreting Fellow: Marcin Victor ([id number]) Diagnosis: Chest pain (786.50) CPT Code(s): Echo Full (59130), Spectral Doppler (14930), Color Doppler (23992), Indication(s): Pericardial effusion, R/O Rhythm: Sinus HR BP 122/80 SUMMARY: 1. Normal biventricular size and systolic function, [id number]%. No wall motion abnormalities. Normal LV wall thickness. Doppler assessment is consistent with normal LV filling pressure. 2. Normal atrial size. 3. No hemodynamically significant valve disease. 4. No pericardial effusion is present. 5. Other findings as noted below. 6. Compared to ELOY performed 12/12/12, there is no significant change. FINDINGS: Left Ventricle Left ventricular chamber size, wall thickness, global and segmental systolic function are within normal limits. Ejection fraction is estimated to be 65%. The left ventricular chamber size is normal. There are no left ventricular segmental wall motion abnormalities. Doppler assessment is consistent with normal left sided filling pressure. Left Atrium The left atrium is normal in size. Right Ventricle Right ventricular chamber size, wall thickness, and systolic function are within normal limits. The estimated pulmonary artery systolic pressure is 17 mmHg. The estimated right atrial pressure is 3 mmHg. Right Atrium The right atrium is normal in size. Aortic Valve The aortic valve is probably tricuspid. There is no evidence of aortic valve stenosis. There is a trace of aortic regurgitation present. Mitral Valve The mitral valve appears normal in structure and function. There is trace mitral regurgitation present. Tricuspid Valve The tricuspid valve appears normal in structure and function. There is trace tricuspid regurgitation present. Pulmonic [...] Normal Mid-Posterolateral Normal Mid-Inferior Normal Mid-Inferoseptal Normal Lynden-Septal Normal Lynden-Anterior Normal Lynden-Lateral Normal Lynden-Inferior Normal Lynden-Tip Normal Chambers Value Units (Range) LV EF Est 65 % (55 to 80) IVSd MM 1 cm (0.3 to 1.1) LVIDd MM 5.3 cm (3.7 to 5.6) PWd MM 1 cm (0.6 to 1.1) LVIDs MM 3.4 cm (2.3 to 3.9) LVFS MM 36 % (28 to 42) LV mass 200.4 gm LA area 20 cm2 (<21) RA area 17 cm2 (<18) Ao root 3.1 cm (2.1 to 3.6) Asc Ao 3.3 cm (2 to 3.5) Mitral Valve Value Units (Range) E peak 0.8 m/sec E/A ratio 1.6 ratio MVDT 195 msec E1 0.09 m/sec E/E1 8 ratio Tricuspid/Pulmonic Valves Value Units (Range) TR peak isabel 1.9 m/sec RAP 3 mmHg RVSP/PASP 17 mmHg This report has been electronically signed by: Dave Menjivar MD 12/15/2012 14:01:08 Images reviewed and interpretation verified [facility] Cardiac Ultrasound Laboratory Janet Eng MD ECHO ORDERABLES * XR chest routine PA & lateral (12/15/2012 10:30 AM EST) Anatomical Region Laterality Modality Chest N/A Radiographic Nano ging 12/15/2012 10:3 0 AM EST Narrative 12/15/2012 10:57 AM EST Examination CHEST ROUTINE 2 VIEWS Clinical History pleuritic chest pain Technique PA and lateral radiographs of the chest. Comparison 12/13/2009. Findings The lungs are clear. The cardiac silhouette is top normal. Pulmonary vascular markings are within normal limits. Small pleural effusions are seen. The skeletal structures are unremarkable. ?? Impression Top normal cardiac silhouette. ??Small effusions. Procedure Note Radha Troncoso MD - 12/15/2012 Examination CHEST ROUTINE 2 VIEWS Clinical History pleuritic chest pain Technique PA and lateral radiographs of the chest. Comparison 12/13/2009. Findings The lungs are clear. The cardiac silhouette is top normal. Pulmonaryvascular markings are within normal limits. Small pleural effusions are seen. The skeletal structures are unremarkable. Impression Top normal cardiac silhouette. Small effusions. Janet Eng MD IMG DX ORDERABLES * Blood culture (12/15/2012 10:06 AM EST) Blood Culture ? Patient Name: OVIDIO MINOR ?Ordered By: JANET ENG ? MR#: [id number] ?LOC: ??[facility] ? /Sex: ??1950 (62 years), ? Male ? PROCEDURE: Blood Culture ?SOURCE: Blood Pedi ? COLLECTED: 12/15/2012 10:06 ? BODY SITE: Left Forearm ? STARTED: 12/15/2012 10:46 ? FINAL REPORT ? Final Report ? Verified:2012 15:10 ? No growth at 5 days. ? PRELIMINARY REPORT ? Preliminary Report ? Verified:2012 15:08 ? No growth at 4 days. ? HELEN ROTH Blood specimen (specimen) STRUCTURE OF LEFT FOREARM / Unknown 12/15/2012 10:06 AM EST 12/15/2012 10:45 AM EST Narrative Resulting Agency Comment Spec In Lab Janet Eng MD MICROBIOLOGY - BLOO D ORDERABLES HELEN ROTH * Blood culture (12/15/2012 9:59 AM EST) Blood Culture ? Patient Name: OVIDIO MINOR ?Ordered By: JANET ENG ? MR#: [id number] ?LOC: ??[facility] ? /Sex: ??1950 (62 years), ? Male ? PROCEDURE: Blood Culture ?SOURCE: Blood Pedi ? COLLECTED: 12/15/2012 09:59 ? BODY SITE: Left Antecubital ? STARTED: 12/15/2012 10:45 ? FINAL REPORT ? Final Report ? Verified:2012 15:10 ? No growth at 5 days. ? PRELIMINARY REPORT ? Preliminary Report ? Verified:2012 15:08 ? No growth at 4 days. ? HELEN ROTH Blood specimen (specimen) ANTECUBITAL REGION STRUCTURE / Unknown 12/15/2012 9:59 AM EST 12/15/2012 10:45 AM EST Narrative Resulting Agency Comment Spec In Lab Janet Eng MD MICROBIOLOGY - BLOO D ORDERABLES Performing Organization Address [facility] Co de Phone Number HELEN ROTH * (ABNORMAL) Cardiac Enzymes (12/15/2012 9:59 AM EST) Troponin-T 0.31(H) <=0.03 ng/mL [facility] Comment: 0.03 ng/mL: Represents the 99th percentile upper reference limit for normals. >0.03 ng/mL: Elevated cardiac troponin T level indicative of myocardial damage. Diagnosis of acute, evolving or recent CO requires a typical rise and gradual fall of cTnT with at least ONE of the following: a) Ischemic symptoms b) Development of pathologic Q waves on the ECG c) ECG changes indicative of eschemia (S-T segment elevation/depression) d) Coronary artery intervention Serial bloods should be obtained for testing on admission, at 6 to 9 hrs and again at 12 to 24 hrs if earlier samples are negative and the clinical index of suspicion is high. Reference: [Myocardial infarction redefined a consensus document of the Joint Society of Cardiology/[place] [employer] Committee for the redefinition of myocardial infarction. Journal of the [place] College [employer] 2000; 36: 959-969] Creatine Kinase 73 0 - 200 unit/L [facility] Blood specimen (specimen) 12/15/2012 9:59 AM EST 12/15/2012 10:31 AM EST Narrative Resulting Agency Comment Spec In Lab Micah Crockett MD CHEMISTRY ORDERABLES Performing Organization Address [facility] Co de Phone Number HELEN ROTH * High Sensitivity CRP (12/15/2012 2:11 AM EST) C-Reactive Protein High Sensitivity 74.9 mg/L HELEN ROTH Comment: Interpretations: 1) For cardiac risk assessment, [...] Inflammation and Cardiovascular Disease. ??Circulation 2003; 107:499-511 2. Cydney PM. ??Clinical applications of C-reactive protein for cardiovascular disease detection and prevention. ??Circulation 2003; 107:363-369 Blood specimen (specimen) 12/15/2012 2:11 AM EST 12/15/2012 2:22 AM EST Narrative Resulting Agency Comment Spec In Lab Micah Crockett MD CHEMISTRY ORDERABLES HELEN ROTH * (ABNORMAL) Sedimentation rate (12/15/2012 2:11 AM EST) Sedimentation Rate Automated 30(H) 0 - 15 mm/hr HELEN ROTH Blood specimen (specimen) 12/15/2012 2:11 AM EST 12/15/2012 2:18 AM EST Narrative Resulting Agency Comment Spec In Lab Micah Crockett MD HEMATOLOGY ORDERABLE S CERNER MILLENNIUM * (ABNORMAL) Differential, Automated (12/15/2012 2:11 AM EST) Neutrophil % 71.7(H) 34.0 - 71.0 % CERNER MILLENNIUM Neutrophil Absolute 6.82(H) 1.50 - 6.30 x10(3)/mc L CERNER MILLENNIUM Lymph % 15.0(L) 19.0 - 53.0 % CERNER MILLENNIUM Lymphocytes Abs 1.4 1.0 - 3.6 x10(3)/mc L CERNER MILLENNIUM Monocyte % 12.6 4.0 - 13.0 % CERNER MILLENNIUM Monocyte Abs 1.2(H) 0.2 - 1.0 x10(3)/mc L CERNER MILLENNIUM Eos % 0.5 0.0 - 7.0 % CERNER MILLENNIUM Eosinophils Abs 0.0 0.0 - 0.5 x10(3)/mc L CERNER MILLENNIUM Basophil % 0.1 0.0 - 2.0 % CERNER MILLENNIUM Baso Absolute 0.0 0.0 - 0.2 x10(3)/mc L CERNER MILLENNIUM Immature Gran % 0.10 0.00 - 0.66 % CERNER MILLENNIUM Comment: Immature granulocytes(IG's)percentage and absolute count will include metamyelocytes, myelocytes, and promyelocytes. Blood smears from CBCs yielding IG's will be scanned manually for concordance. If this scan disagrees with the automated IG or if promyelocytes are noted, a manual differential will be performed. Immature Gran Absolute 0.01 0.00 - 0.05 x10(3)/mc L CERNER MILLENNIUM Blood specimen (specimen) 12/15/2012 2:11 AM EST 12/15/2012 2:18 AM EST Micah Crockett MD HEMATOLOGY ORDERABLE S CERGAIL SUTTONENNIUM * Scan, Peripheral Blood (12/15/2012 2:11 AM EST) Plat estimate Decreased HELEN ROTH RBC Morphology Normal RAMSEY ROTH Blood specimen (specimen) 12/15/2012 2:11 AM EST 12/15/2012 2:18 AM EST Narrative Resulting Agency Comment Spec In Lab Micah Crockett MD HEMATOLOGY ORDERABLE S Performing Organization Address [facility] Co de Phone Number HELEN ROTH * (ABNORMAL) Cardiac Enzymes (12/15/2012 2:11 AM EST) Troponin-T 0.44(H) <=0.03 ng/mL HELEN ROTH Comment: 0.03 ng/mL: Represents the 99th percentile upper reference limit for normals. >0.03 ng/mL: Elevated cardiac troponin T level indicative of myocardial damage. Diagnosis of acute, evolving or recent CO requires a typical rise and gradual fall of cTnT with at least ONE of the following: a) Ischemic symptoms b) Development of pathologic Q waves on the ECG c) ECG changes indicative of eschemia (S-T segment elevation/depression) d) Coronary artery intervention Serial bloods should be obtained for testing on admission, at 6 to 9 hrs and again at 12 to 24 hrs if earlier samples are negative and the clinical index of suspicion is high. Reference: [Myocardial infarction redefined a consensus document of the Joint Society of Cardiology/[place] [employer] Committee for the redefinition of myocardial infarction. Journal of the [place] [employer]iology 2000; 36: 959-969] Creatine Kinase 97 0 - 200 unit/L HELEN ROTH Blood specimen (specimen) 12/15/2012 2:11 AM EST 12/15/2012 2:18 AM EST Narrative Resulting Agency Comment Spec In Lab Micah Crockett MD CHEMISTRY ORDERABLES Performing Organization Address [facility] Co de Phone Number HELEN ROTH * Magnesium (12/15/2012 2:11 AM EST) Magnesium 0.72 0.69 - 1.07 mmol/L CERNER MILLENNIUM Blood specimen (specimen) 12/15/2012 2:11 AM EST 12/15/2012 2:18 AM EST Narrative Resulting Agency Comment Spec In Lab Micah Crockett MD CHEMISTRY ORDERABLES Performing Organization Address [facility] Phone Number HELEN ROTH * (ABNORMAL) APTT (12/15/2012 2:11 AM EST) Partial Thromboplastin Time 46(H) 25 - 35 sec [facility] MARYVALEGAIL FAGANIUM Comment: Recommended therapeutic PTT range for full dose unfractionated heparin is 80-114 seconds. Blood specimen (specimen) 12/15/2012 2:11 AM EST 12/15/2012 2:18 AM EST Narrative Resulting Agency Comment Spec In Lab Micah Crockett MD HEMATOLOGY ORDERABLE S Performing Organization Address [facility] Phone Number HELEN ROTH * (ABNORMAL) Prothrombin Time (12/15/2012 2:11 AM EST) Prothrombin Time 22.4(H) 11.9 - 14.7 sec [facility] Comment: [facility] Transfusion Committee Guidelines: INR less than 2.0, PTT less than OR equal to 43.5 seconds, or Fibrinogen greater than or equal to 100 mg/dl indicate adequate procoagulant activity for hemostasis in patients without underlying bleeding disorders. International Normalization Ratio 1.9(H) 0.9 - 1.1 [facility] Blood specimen (specimen) 12/15/2012 2:11 AM EST 12/15/2012 2:18 AM EST Narrative Resulting Agency Comment Spec In Lab Micah Crockett MD HEMATOLOGY ORDERABLE S Performing Organization Address [facility] Phone Number HELEN ROTH * (ABNORMAL) Comprehensive metabolic panel (non-fasting) (12/15/2012 2:11 AM EST) Glucose 101 60 - 199 mg/dL [facility] Comment:Diabetes: >=200 mg/d L plus symptoms Blood Urea Nitrogen 12 10 - 20 mg/dL CERNER MILLENNIUM Creatinine 0.80 0.80 - 1.50 mg/dL CERNER MILLENNIUM Comment: Please note that the pediatric reference intervals supplied above were not validated at [facility] [facility]. Results from pediatric patients should be interpreted in conjunction to the patient's age, height and muscle mass. Sodium 137 135 - 145 mmol/L CERNER MILLENNIUM Potassium 3.7 3.5 - 5.0 mmol/L CERNER MILLENNIUM Comment: Please note: ??Patients with WBC >100,000 may have falsely elevated Potassium levels. ??For accurate Potassium quantification in these patients send serum separator tube (gold top) for subsequent determinations. ??Contact the Clinical Chemistry Laboratory if there are any questions. Chloride 101 98 - 107 mmol/L CERNER MILLENNIUM Carbon Dioxide 26 22 - 31 mmol/L CERNER MILLENNIUM Anion Gap 10 5 - 15 mmol/L CERNER MILLENNIUM Calcium 8.7 8.5 - 10.5 mg/dL CERNER MILLENNIUM Protein, Total 6.9 6.4 - 8.3 gm/dL CERNER MILLENNIUM Albumin 4.1 3.2 - 5.2 gm/dL CERNER MILLENNIUM Aspartate Aminotransferase 75(H) 0 - 39 unit/L CERNER MILLENNIUM Alanine Aminotransferase 55 0 - 55 unit/L CERNER MILLENNIUM Alkaline Phosphatase 81 40 - 120 unit/L CERNER MILLENNIUM Bilirubin, Total 0.9 0.2 - 1.3 mg/dL CERNER MILLENNIUM Bilirubin, Direct 0.2 0.0 - 0.3 mg/dL CERNER MILLENNIUM Est Glomerular Filtration Rate [...] J Am Soc Nephrol;6:1963-72. Blood specimen (specimen) 12/15/2012 2:11 AM EST 12/15/2012 2:18 AM EST Narrative Resulting Agency Comment Spec In Lab Micah Crockett MD CHEMISTRY ORDERABLES [facility] * (ABNORMAL) CBC (with Diff) (12/15/2012 2:11 AM EST) White Blood Cell 9.5 4.0 - 10.0 x10(3)/mc L CERNER MILLENNIUM Red Blood Cell 4.28(L) 4.63 - 6.08 x10(6)/mc L CERNER MILLENNIUM Hemoglobin 13.3(L) 13.7 - 17.5 gm/dL CERNER MILLENNIUM Hematocrit 39.0(L) 40.0 - 51.0 % CERNER MILLENNIUM Mean Cell Volume 91.1 79.0 - 92.0 fL CERNER MILLENNIUM Mean Cell Hemoglobin 31.1 25.6 - 32.2 pg CERGAIL MILLENNIUM Mean Cell Hemoglobin Concentration 34.1 32.0 - 36.5 gm/dL CERGAIL MILLENNIUM Platelet 88(L) 145 - 370 x10(3)/mc L CERNER MILLENNIUM RDW Standard Deviation 39.5 35.0 - 46.0 fL CERNER MILLENNIUM RDW coefficient of variation 12.0 10.9 - 14.4 % CERNER MILLENNIUM Mean Platelet Volume 11.9 9.0 - 12.0 fL CERGAIL MILLENNIUM Blood specimen (specimen) 12/15/2012 2:11 AM EST 12/15/2012 2:18 AM EST Narrative Resulting Agency Comment Spec In Lab Micah Crockett MD HEMATOLOGY ORDERABLE S Performing Organization Address [facility] Co de Phone Number HELEN ROTH * EKG 12 Lead (12/15/2012 1:51 AM EST) Ventricular rate 73 BPM MUSE SYSTEM Atrial Rate 73 BPM MUSE SYSTEM P-R Interval 144 ms MUSE SYSTEM QRS Duration 144 ms MUSE SYSTEM Q-T Interval 416 ms MUSE SYSTEM QTC Calculated (Bezet) 458 ms MUSE SYSTEM Calculated P Jackson 35 degrees MUSE SYSTEM Calculated R Jackson -43 degrees MUSE SYSTEM Calculated T Jackson 7 degrees MUSE SYSTEM INTERPRETATION Normal sinus rhythm Left axis deviation Right bundle branch block Abnormal ECG When compared with ECG of 12-DEC-2012 07:29, No significant change was found Confirmed by MD Lo Robert ([id number]) on 12/15/2012 1:29:29 PM MUSE SYSTEM 12/15/2012 1:51 AM EST 12/15/2012 1:29 PM EST Micah Crockett MD ECG ORDERABLES Performing Organization Address [facility] Co de Phone Number MUSE SYSTEM documented in this encounter Visit Diagnoses Diagnosis Acute pleuropericarditis s/p atrial fibrillation ablation- Primary Acute pericarditis, unspecified Chest pain Chest pain, unspecified Odynophagia s/p Atrial fibrillation and ELOY Dysphagia, unspecified Thrombocytopenia - chronic Thrombocytopenia, unspecified documented in this encounter Administered Medications Inactive Administered Medications - up to 3 most recent administrations Medication Order MAR Action Action Date Dose Rate Site acetaminophen (TYLENOL) tablet 1,000 mg 1,000 mg, Oral, EVERY 6 HOURS PRN, Starting on Wed12/15/12 at 0226, Until Wed12/16/12 at 1550, Pain, Fever, Maximum dose of acetaminophen is 4000 mg from all sources in 24 hours., Routine Given 12/15/2012 9:34 AM EST 1,000 mg aspirin EC tablet 81 mg 81 mg, Oral, DAILY, First dose on Wed12/16/12 at 0900, Until Discontinued, Routine Given 12/16/2012 9:00 AM EST 81 mg aspirin tablet 325 mg 325 mg, Oral, DAILY, First dose on Wed12/15/12 at 0900, Until Discontinued, Routine Given 12/15/2012 9:19 AM EST 325 mg baclofen (LIORESAL) tablet 10 mg 10 mg, Oral, DAILY, First dose on Wed12/15/12 at 0900, Until Discontinued, Routine Given 12/16/2012 9:00 AM EST 10 mg Given 12/15/2012 9:19 AM EST 10 mg colchicine (COLCRYS) tablet 0.6 mg 0.6 mg, Oral, 2 TIMES DAILY, First dose on Wed12/15/12 at 1430, Until Discontinued, Maximum dose: 2.4 mg/ 24 hours, Routine Given 12/16/2012 9:00 AM EST 0.6 mg Given 12/15/2012 10:01 PM EST 0.6 mg Given 12/15/2012 4:07 PM EST 0.6 mg enoxaparin (LOVENOX) injection 40 mg 40 mg, Subcutaneous, ONCE, 1 dose, On Wed12/16/12 at 1230, Please administer prior to discharge and teach patient how to self administer, STAT Given 12/16/2012 12:30 PM EST 40 mg esomeprazole (NEXIUM) capsule 40 mg 40 mg, Oral, DAILY, First dose on Wed12/16/12 at 0900, Until Discontinued, Routine Given 12/16/2012 9:00 AM EST 40 mg famotidine (PEPCID) tablet 20 mg 20 mg, Oral, 2 TIMES DAILY, First dose on Wed12/15/12 at 1430, Until Discontinued, Routine Given 12/15/2012 4:15 PM EST 20 mg ibuprofen (ADVIL;MOTRIN) tablet 400 mg 400 mg, Oral, 3 TIMES DAILY, First dose on [facility] 12/15/12 at 1430, Until Discontinued, Maximum dose of 3200 mg from all sources in 24 hours, Routine Given 12/16/2012 9:00 AM EST 400 mg Given 12/15/2012 10:01 PM EST 400 mg Given 12/15/2012 2:30 PM EST 400 mg methadone (DOLOPHINE) tablet 10 mg 10 mg, Oral, 2 TIMES DAILY, First dose on [facility] 12/15/12 at 0900, Until Discontinued, Routine Given 12/16/2012 9:00 AM EST 10 mg Given 12/15/2012 10:01 PM EST 10 mg Given 12/15/2012 9:19 AM EST 10 mg metoprolol succinate (TOPROL-XL) XL tablet 50 mg 50 mg, Oral, DAILY, First dose on [facility] 12/15/12 at 0900, Until Discontinued, Routine Given 12/16/2012 9:00 AM EST 50 mg Given 12/15/2012 9:19 AM EST 50 mg morphine 10 mg/mL carpuject 2 mg 2 mg, Intravenous, ONCE, 1 dose, On [facility] 12/15/12 at 0245, Routine Given 12/15/2012 2:45 AM EST 2 mg omeprazole (PRILOSEC) capsule 40 mg 40 mg, Oral, DAILY, First dose on [facility] 12/15/12 at 0900, Until Discontinued, March, Routine Given 12/15/2012 9:19 AM EST 40 mg simvastatin (ZOCOR) tablet 10 mg 10 mg, Oral, EVERY EVENING, First dose on [facility] 12/15/12 at 1700, Until Discontinued Given 12/15/2012 5:30 PM EST 10 mg sodium chloride 0.9 % flush 5 mL 5 mL, Intravenous, EVERY 12 HOURS, First dose on [facility] 12/15/12 at 0245, Until Discontinued Given 12/16/2012 2:45 AM EST 5 mLs Given 12/15/2012 2:45 PM EST 5 mLs Given 12/15/2012 2:45 AM EST 5 mLs sodium chloride 0.9 % flush 5 mL 5 mL, Intravenous, EVERY 12 HOURS, First dose on [facility] 12/15/12 at 0245, Until Discontinued Given 12/16/2012 2:45 AM EST 5 mLs Given 12/15/2012 2:45 AM EST 5 mLs warfarin (COUMADIN) tablet 1 mg 1 mg, Oral, EVERY EVENING, First dose on [place] 12/15/12 at 1700, Until Discontinued, Routine Given 12/15/2012 5:30 PM EST 1 mg documented in this encounter Active and Recently Administered Medications Times are shown in EST. Scheduled Medication Order 12/14/2012 12/15/2012 12/16/2012 aspirin EC tablet 81 mg 81 mg, Oral, DAILY, First dose on Wed12/16/12 at 0900, Until Discontinued, Routine 0900 (Given - Provid er: Melyssa Soriano RN) aspirin tablet 325 mg (CANCELED) 325 mg, Oral, DAILY, First dose on Wed12/15/12 at 0900, Until Discontinued, Routine 0919 (Given - Provider: Leesa Garcia RN) baclofen (LIORESAL) tablet 10 mg (CANCELED) 10 mg, Oral, DAILY, First dose on Wed12/15/12 at 0900, Until Discontinued, Routine 0919 (Given - Provider: Leesa Garcia RN) 0900 (Given - Provider: Melyssa Soriano RN) colchicine (COLCRYS) tablet 0.6 mg 0.6 mg, Oral, 2 TIMES DAILY, First dose on Wed12/15/12 at 1430, Until Discontinued, Maximum dose: 2.4 mg/ 24 hours, Routine 1607 (Given - Provider: Leesa Garcia RN)2201 (Given - Provider: Irma Perea RN) 0900 (Given - Provider: Melyssa Soriano, TORREY) enoxaparin (LOVENOX) injection 40 mg (COMPLETED) 40 mg, Subcutaneous, ONCE, 1 dose, On Wed12/16/12 at 1230, Please administer prior to discharge and teach patient how to self administer, STAT 1230 (Given - Provid er: Melyssa Soriano RN - Comment: teaching done with spouse and pt) esomeprazole (NEXIUM) capsule 40 mg (CANCELED) 40 mg, Oral, DAILY, First dose on Wed12/16/12 at 0900, Until Discontinued, Routine 0900 (Given - Provid er: Melyssa Soriano, TORREY) famotidine (PEPCID) tablet 20 mg (CANCELED) 20 mg, Oral, 2 TIMES DAILY, First dose on [place] 12/15/12 at 1430, Until Discontinued, Routine 1615 (Given - Provider: Leesa Garcia RN) ibuprofen (ADVIL;MOTRIN) tablet 400 mg 400 mg, Oral, 3 TIMES DAILY, First dose on [place] 12/15/12 at 1430, Until Discontinued, Maximum dose of 3200 mg from all sources in 24 hours, Routine 1430 (Given - Provider: Leesa Garcia RN)220 (Given - Provider: Irma Perea, TORREY) 0900 (Given - Provider: Melyssa Soriano RN) methadone (DOLOPHINE) tablet 10 mg (CANCELED) 10 mg, Oral, 2 TIMES DAILY, First dose on Zakia 12/15/12 at 0900, Until Discontinued, Routine 918 (Given - Provider: Leesa Garcia RN)2200 (Given - Provider: Irma Perea RN) 0900 (Given - Provider: Melyssa Soriano, TORREY) metoprolol succinate (TOPROL-XL) XL tablet 50 mg (CANCELED) 50 mg, Oral, DAILY, First dose on Wed12/15/12 at 0900, Until Discontinued, Routine 918 (Given - Provider: Leesa Garcia RN) 0900 (Given - Provider: Melyssa Soriano RN) morphine 10 mg/mL carpuject 2 mg (COMPLETED) 2 mg, Intravenous, ONCE, 1 dose, On Wed12/15/12 at 0245, Routine 0245 (Given - Provider: Pavel Sy RN) omeprazole (PRILOSEC) capsule 40 mg (CANCELED) 40 mg, Oral, DAILY, First dose on Wed12/15/12 at 0900, Until Discontinued, March, Routine 0919 (Given - Provider: Leesa Garcia RN) simvastatin (ZOCOR) tablet 10 mg (CANCELED) 10 mg, Oral, EVERY EVENING, First dose on Wed12/15/12 at 1700, Until Discontinued 1730 (Given - Provider: Leesa Garcia RN) sodium chloride 0.9 % flush 5 mL (CANCELED) 5 mL, Intravenous, EVERY 12 HOURS, First dose on Zakia 12/15/12 at 0245, Until Discontinued 0245 (Given - Provider: Pavel Sy RN)1445 (Given - Provider: Leesa Garcia RN) 0245 (Given - Provider: Irma Perea, RN)1445 (Canceled Entry - Provider: Melyssa Soriano, TORREY) sodium chloride 0.9 % flush 5 mL (CANCELED) 5 mL, Intravenous, EVERY 12 HOURS, First dose on Zakia 12/15/12 at 0245, Until Discontinued 0245 (Given - Provider: Pavel Sy RN)1445 (Not Given - Provider: Leesa Garcia RN - Reason: Order parameters not met) 0245 (Given - Provider: Irma Perea, TORREY)1445 (Canceled Entry - Provider: Melyssa Soriano, TORREY) warfarin (COUMADIN) tablet 1 mg (CANCELED) 1 mg, Oral, EVERY EVENING, First dose on Zakia 12/15/12 at 1700, Until Discontinued, Routine 1730 (Given - Provider: Leesa Garcia RN) PRN Medication Order 12/14/2012 12/15/2012 12/16/2012 acetaminophen (TYLENOL) tablet 1,000 mg (CANCELED) 1,000 mg, Oral, EVERY 6 HOURS PRN, Starting on Zakia 12/15/12 at 0226, Until 12/16/12 at 1550, Pain, Fever, Maximum dose of acetaminophen is 4000 mg from all sources in 24 hours., Routine 0934 (Given - Provider: Leesa Garcia RN) documented in this encounter Care Teams Site Acquisition Manager Relationship Specialty Start Date End Date Radha Mckeon MD [address] [place] [address] PCP - General 09/23/10 documented as of this encounter
--- OUTSIDE RECORDS SUMMARY | 2024-07-24 17:32 | XMS_ITS | Encounter Summary ---
Author Organization [facility] [place] [address] Care Team Providers Care Construction Project Engineer Name Role Phone Radha Mckeon MD Primary Care Provider [phone] Encounter Details Date Type Department Care Team (Late st Contact Info) Description 09/21/2012 Telephone Cardiology at [address] [address] Tricia Braga, TORREY Social History Tobacco Use Types Packs/Day Years [...] Telephone Encounter - Tricia Braga RN - 09/21/2012 10:24 AM EST He has had an event monitor for 30 days. No symptoms during this time. Per Diogo Robb, extend enrollment another 30 days. First Call notified. documented in this encounter Plan of Treatment Upcoming Encounters Date Type Department Care Team (Late st Contact Info) Description 08/18/2024 11:00 AM EDT Hospital Encounter Non-[place] [address] Arrived 02/22/2025 1:30 PM EDT Appointment Hematology and Oncology at [place] [address] 02/22/2025 2:30 PM EDT Office Visit Hematology and Oncology at [place] [phone] Ellis Childers MD [facility] DR HEMATOLOGY [place] [address] Felicita Landa APRN [facility] [address] HEMATOLOGY [place] [address] documented as of this encounter Visit Diagnoses Not on filedocumented in this encounter Care Teams Construction Project Engineer Relationship Specialty Start Date End Date Radha Mckeon MD [address] [place] [address] PCP - General 09/23/10 documented as of this encounter
--- OUTSIDE RECORDS SUMMARY | 2024-07-24 17:32 | XMS_ITS | Encounter Summary ---
Author Organization [place] [address] Care Team Providers Care Regional Truck Driver Name Role Phone Radha Mckeon MD Primary Care Provider [phone] Encounter Details Date Type Department Care Team (Latest Contact Info) Description 09/21/2012 10:40 AM EST - 09/21/2012 11:59 PM [facility] Hospital Encounter [place] [phone] SOFTWARE SALES REPRESENTATIVE, CM Palpitations Discharge Disposition: Home Social History Tobacco Use [...] AM EDT Hospital Encounter Non-[place] [phone] Arrived 02/22/2025 1:30 PM EDT Appointment Hematology [place] [address] 02/22/2025 2:30 PM EDT Office Visit Hematology [place] [address] Ellis Childers MD [facility] [address] [place] [address] Felicita Landa APRN [facility] [place] [address] documented as of this encounter Procedures Procedure Name Priority Date/Time Associated Diagnosis Comments CARDIAC EVENT MONITOR Routine 09/21/2012 10:43 AM EST Palpitations documented in this encounter Results * Cardiac Event Monitor (09/21/2012 10:43 AM EST) Anatomical Region Laterality Modality Other Narrative 11/03/2012 4:43 PM EST Cardiac Event Monitor Date of Interpretation: 11/03/2011 Recordings from 08/23/2012 [...] a supra ventricular tachycardia (Mid RP type) Procedure Note Omar Corcoran MD - 11/03/2012 Cardiac Event Monitor Date of Interpretation: 11/03/2011 Recordings from 08/23/2012 - 10/18/2012 Baseline: Date 08/23/2012 - shows sinus rhythm 54-63 bpm There are 3 submitted events 'none-pause' - date 09/21/2012 sinus rhythm 57-68 bpm 'racing heart' - date 10/18/2012 sinus rhythm and 2 episodes of SVT thatare preceeded by a premature atrial contraction. The SVT 'warms up' to acycle length of 400ms (150 bpm) and lasts just over 5 seconds for thefirst episode, and the second episode a few seconds later lasts about 13seconds. Morphology appears to be 'Mid RP' 'follow up' - date 10/18/2012 sinus rhythm 65-76 bpm Impression: 1) Baseline sinus rhythm 2) Symptoms correlate with a supra ventricular tachycardia (Mid RP type) Diogo Argueta MD CARDIAC SERVICES ORD ERABLES documented in this encounter Visit Diagnoses Diagnosis Palpitations documented in this encounter Care Teams Regional Truck Driver Relationship Specialty Start Date End Date Radha Mckeon MD [address] [place] [address] PCP - General 09/23/10 documented as of this encounter
--- OUTSIDE RECORDS SUMMARY | 2024-07-24 17:32 | XMS_ITS | Encounter Summary ---
Author Organization [facility] [place] [address] Care Team Providers Care Occupational Health Rn Name Role Phone Radha Mckeon MD Primary Care Provider [phone] Reason for Visit * Reason Onset Date Comments Other 01/16/2013 Lab/Ecg order Encounter Details Date Type Department Care Team (Late st Contact Info) Description 01/16/2013 Telephone Cardiology at [address] [address] Diogo Robb, PA [facility] [place] [place] [address] Other (Lab/Ecg order) Social History Tobacco Use Types Packs/Day Years [...] encounter Miscellaneous Notes * Telephone Encounter - Chrissy Kilgore - 01/16/2013 2:57 PM EDT Hi, Please sign the attached Lab/ECG order. Chrissy Morris documented in this encounter Plan of Treatment Upcoming Encounters Date Type Department Care Team (Late st Contact Info) Description 08/18/2024 11:00 AM EDT Hospital Encounter Non-Invasive [place] [phone] Arrived 02/22/2025 1:30 PM EDT Appointment [place] [address] 02/22/2025 2:30 PM EDT Office Visit [place]ology [place] [address] Ellis Childers MD [facility] DR [place]EMATOLOG[place] [address] Felicita Landa APRN [facility] DR HEMATOLOGY [place] [address] documented as of this encounter Results * Echocardiogram limited (02/02/2013 1:49 PM EDT) Pathologist [facility] EF 64 HEARTLAB SYSTEM Anatomical Region Laterality Modality Other 02/02/2013 Narrative 02/02/2013 2:37 PM EDT Procedure: ? Transthoracic Echocardiogram Patient: ? MILY NOLAN T ? (Age): 1950(62) Med Rec#: ?[id number] ? Sex: ?M ? Site Loc: ?[facility] ? Ht / Wt: ??183(cm)/87(kg) Pt. Loc: ? Echo Lab ? BSA: ?2.1 Study Date: ?02/02/2013 ? Pt. Type: Outpatient Tape: ? Referring: Jyothi Judge ([id number]) Investment Recovery Technician: Malik Tee [facility] Diagnosis: ??Pericardial effusion (423.9) CPT Code(s): ??Echo Full (43366), ??Spectral Doppler (10880), ??Color Doppler (29353), Indication(s): ??Pericardial effusion, R/O Rhythm: HR ?BP [...] ? Mid-Inferior ?Normal ? Mid-Inferoseptal ?Normal ? Nutley-Septal ? Normal ? Nutley-Anterior ? Normal ? [place]ley-Lateral ?Normal ? [place]ley-Inferior ? Normal ? [place]-Tip ?Normal ? Chambers ?Value ?Units (Range) ? [...] been electronically signed by: Óscar Bonds MD ? 02/02/2013 14:36:23 Images reviewed and interpretation verified [facility] Cardiac Ultrasound Laboratory Procedure Note Óscar Bonds MD - 02/02/2013 Procedure: Transthoracic Echocardiogram Patient: MILY CLINTON(Age): 1950(62) Med Rec#: [id number] Sex: M Site Loc: [facility] Ht / Wt: 183(cm)/87(kg) Pt. Loc: Echo Lab BSA: 2.1 Study Date: 02/02/2013 Pt. Type: Outpatient Tape: Referring: Jyothi Judge ([id number]) Investment Recovery Technician: Malik Tee [facility] Diagnosis: Pericardial effusion (423.9) CPT Code(s): Echo Full (35923), Spectral Doppler (58125), Color Doppler (07436), Indication(s): Pericardial effusion, R/O Rhythm: HR BP [...] Normal Mid-Posterolateral Normal Mid-Inferior Normal Mid-Inferoseptal Normal Nutley-Septal Normal Nutley-Anterior Normal Nutley-Lateral Normal Nutley-Inferior Normal Nutley-Tip Normal Chambers Value Units (Range) EF Bi-p [...] 02/02/2013 14:36:23 Images reviewed and interpretation verified [facility] Cardiac Ultrasound Laboratory Jyothi Judge MD ECHO ORDERABLES * Basic Metabolic Panel (non-fasting) (02/02/2013 12:47 PM EDT) [facility] Glucose 97 60 - 199 mg/dL CERNER MILLENNIUM Comment:Diabetes: >=200 mg/d L plus symptoms Blood Urea Nitrogen 18 10 - 20 mg/dL CERNER MILLENNIUM Creatinine 1.03 0.80 - 1.50 mg/dL CERNER MILLENNIUM Comment: Please note that the pediatric reference intervals supplied above were not validated at [facility]. Results from pediatric patients should be interpreted [...] MD CHEMISTRY ORDERABL ES Performing Organization Address City/State/[facility] Co la Phone Number [facility] documented in this encounter Visit Diagnoses Diagnosis High risk medication use- Primary Encounter for long-term (current) use of other medications Pericarditis Unspecified disease of pericardium High risk medication use Encounter for long-term (current) use of other medications documented in this encounter Care Teams Occupational Health Rn Relationship Specialty Start Date End Date Radha Mckeon MD [address] [place] [address] PCP - General 09/23/10 documented as of this encounter
--- OUTSIDE RECORDS SUMMARY | 2024-07-24 17:32 | XMS_ITS | Encounter Summary ---
Author Organization [facility] [place] [address] Care Team Providers Care Corporate Auditor Name Role Phone Radha Mckeon MD Primary Care Provider [phone] Reason for Visit * Reason Comments Palpitations Encounter Details Date Type Department Care Team (Late st Contact Info) Description 08/23/2012 12:40 PM EDT Follow-Up Cardiology at [address] [address] Diogo Robb PA [facility] [place] [address] High risk medication use; A-fib; Atrial fibrillation [...] Sign Reading Time Taken Comments Blood Pressure 126/64 08/23/2012 12:48 PM EDT Pulse 60 08/23/2012 12:48 PM EDT Temperature - - Respiratory Rate - - Oxygen Saturation - - Inhaled Oxygen Concentration - - Weight 85.5 kg (188 lb 8 oz) 08/23/2012 12:48 PM EDT Height 182.9 cm (6') 08/23/2012 12:48 PM EDT Body Mass Index 25.57 08/23/2012 12:48 PM EDT documented in this encounter Patient Instructions * Patient Instructions* Diogo Robb PA - 08/24/2012 9:48 AM EDT 12 lead and CHEM7 in 3 months(dofetilide surveillance) EP device clinic in six months documented in this encounter Progress Notes * Diogo Robb PA - 08/23/2012 1:31 PM EDT Subjective: Patient ID: Malik Machado is a 62 y.o. male. HPI Mr. Machado is a 62 year old male with a history of recurrent paroxysmal atrial fibrillation maintained on dofetilide. His course has involved multiple cardioversions and failed flecainide therapy(AK/QRS prolongation). He has been on dofetilide since 12/2007 and is reasonably controlled though he notes occasional episodes of fluttering lasting less than a minute. Since his last visit, he has continued to have occasional episodes which he thinks are somewhat worse than previously. He sometimes has associated lightheadedness, but has not had any presyncope or syncope since his last visit. His last echo was in 2006 and his last stress test was in 2007. Serial EKGs and a 30 day event monitor(12/2010) did not demonstrate afib or other arrythmia. Patient Active Problem List Diagnoses Code ??? CHRONIC BACK PAIN GREATER THAN 3 MONTHS DURATION 724.5BZ ??? Knee pain 719.46J ??? Lumbar radiculopathy 724.4F ??? A-fib 427.31N ??? Hypertension 401.9AJ ??? 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 S/P knee replacement V43.65S Review of Systems Constitutional: Negative for chills, diaphoresis, fever and malaise/fatigue. Cardiovascular: Positive for palpitations. Negative for chest pain, dyspnea on exertion, near-syncope and syncope. Respiratory: Negative for shortness of breath. Medications: Current outpatient prescriptions:Baldwin-3 Fatty Acids-Vitamin E (FISH OIL) 1,000 mg [...] and breath sounds normal. Abdominal: Soft. Musculoskeletal: Normal range of motion. He exhibits no edema. Neurological: He is alert and oriented to person, place, and time. Skin: Skin is warm and dry. He is not diaphoretic. 12 lead EKG: Sinus bradycardia @ 53; AK 176; QRS 134; QRS 442ms; known LAHB and RBBB Assessment and Plan: 62yo man with hx of PAF, maintained on dofetilide but with regular, short duration breakthrough episodes of arrythmia that he feels are getting slightly worse over time(more pronounced) and leave himfeeling fatigued. The precise rhythm has not been identified as the events do not last very long and only occur a couple of times a month. We discussed possible etiologies and treatment strategies and he would like to pursue additional ambulatory monitoring to better qualify any associated rhythm with his symptoms. He was issued a 30 day cardiac event monitor today. EKG intervals remain stable and he is in sinus rhythm. Renal function and electrolytes are acceptable. Dofetilide prescription refilled electronically. Next follow up for 12 lead EKG and CHEM7 in three months. EP clinic follow up in six months. Sooner if symptoms worsen. Provider: ANDREE Shelley Provider#: [id number] Consult attending physician: Kike Argueta MD documented in this encounter Plan of Treatment Upcoming Encounters Date Type Department Care Team (Late st Contact Info) Description 08/18/2024 11:00 AM EDT Hospital Encounter [place] [phone] Arrived 02/22/2025 1:30 PM EDT Appointment Hematology [place] [address] 02/22/2025 2:30 PM EDT Office Visit Hematology and Oncology at [place] [phone] Ellis Childers MD [facility] [place] [address] Felicita Landa APRN [facility] [place] [address] documented as of this encounter Procedures Procedure Name Priority Date/Time Associated Diagnosis Comments EKG 12-LEAD Routine 08/23/2012 12:48 PM EDT High risk medication use A-fib MAGNESIUM STAT 08/23/2012 12:38 PM EDT High risk medication use BASIC METABOLIC PANEL STAT 08/23/2012 12:38 PM EDT High risk medication use documented in this encounter Results * Cardiac [...] SERVICES ORD ERABLES * EKG 12 Lead (08/23/2012 12:48 PM EDT) Ventricular rate 53 BPM MUSE SYSTEM Atrial Rate 53 BPM MUSE SYSTEM P-R Interval 176 ms MUSE SYSTEM QRS Duration 134 ms MUSE SYSTEM Q-T Interval 472 ms MUSE SYSTEM QTC Calculated (Bezet) 442 ms MUSE SYSTEM Calculated P Marion 38 degrees MUSE SYSTEM Calculated R Marion -49 degrees MUSE SYSTEM Calculated T Marion -7 degrees MUSE SYSTEM INTERPRETATION Sinus bradycardia Right bundle branch block Left anterior fascicular block Bifascicular block Abnormal ECG When compared with ECG of 09-FEB-2012 14:13, No significant change was found Confirmed by MD Santhosh, Devonte ([id number]) on 08/24/2012 1:27:55 PM MUSE SYSTEM 08/23/2012 12:4 8 PM EDT 08/24/2012 1:27 PM EDT Diogo Argueta MD ECG ORDERABLES MUSE SYSTEM * Magnesium (08/23/2012 12:38 PM EDT) Magnesium 0.81 0.69 - 1.07 mmol/L CERNER MILLENNIUM Blood specimen (specimen) 08/23/2012 12:38 PM EDT 08/23/2012 12:43 PM EDT Narrative Resulting Agency Comment Spec In Lab Cullen Gilmore MD CHEMISTRY ORDERABL ES CERGAIL ROTH * Basic Metabolic Panel (non-fasting) (08/23/2012 12:38 PM EDT) Glucose 105 60 - 199 mg/dL CERNER MILLENNIUM Comment:Diabetes: >=200 mg/d L plus symptoms Blood Urea Nitrogen 15 10 - 20 mg/dL CERNER MILLENNIUM Creatinine 0.99 0.80 - 1.50 mg/dL CERNER MILLENNIUM Comment: Please note that the pediatric reference intervals supplied above were not validated at [facility]. Results from pediatric patients should [...] ORDERABL ES Performing Organization Address City/State/ZIP Co [place] Phone Number [facility] documented in this encounter Visit Diagnoses Diagnosis High risk medication use Encounter for long-term (current) use of other medications A-fib Atrial fibrillation Atrial fibrillation High risk medication use Encounter for long-term (current) use of other medications A-fib Atrial fibrillation Atrial fibrillation documented in this encounter Care Teams Corporate Auditor Relationship Specialty Start Date End Date Radha Mckeon MD [address] [place] [address] PCP - General 09/23/10 documented as of this encounter
--- OUTSIDE RECORDS SUMMARY | 2024-07-24 17:32 | XMS_ITS | Encounter Summary ---
Author Organization [facility] [place] [address] Care Team Providers Care Creative Producer Name Role Phone Radha Mckeon MD Primary Care Provider [phone] Reason for Visit * Reason Onset Date Comments Chest Pain 12/14/2012 Fever 12/14/2012 Encounter Details Date Type Department Care Team (Late st Contact Info) Description 12/14/2012 [place] [phone] Jose Esqueda MD [facility] [place] [address] Chest Pain; Fever Social History Tobacco Use Types Packs/Day Years [...] encounter Miscellaneous Notes * Telephone Encounter - Jose Esqueda MD - 12/14/2012 10:22 PM EST ONCALL EMERGENCY VEHICLE DRIVER NOTE I was contacted by Mr Malik Machado at 18:30 regarding a fever (100.4 F) that he developed since this afternoon. He complained also of pleuritic chest pain and has been feeling uncomfortable with breathing. He is status post PVI for AF on Wednesday (not surprisingly, his troponin T was 1.1a. He denied that the access site appeared infected or was tender. As he describes to me the development of subacute dyspnea and fever following a recent invasive procedure, I instructed him to go tohis local Emergency Department and be evaluated, to which he agreed. My concerns are that the pathology could be procedure-related (e.g. pulmonary vein stenosis, pericardial effusion), hospital-acquired (e.g. pneumonia, PE), or community-acquired (e.g. pneumonia, infections). At 22:15, I am contacted by Dr Neumann at an OSH that a (left) pleural effusion is present and there is probably an area offocal infiltration, with pneumonia being a likely diagnosis per OSH physician. Dr Neumann now also tells me the patient feels warm and bruised at the access sites, and continues to be dyspneic and has mild pleuritic chest pain. Due to the investigative limitations at the OSH, the referring physicianwould like to transfer the patient [place] [facility] [place], pending bed availability. documented in this encounter Plan of Treatment Upcoming Encounters Date Type Department Care Team (Late st Contact Info) Description 08/18/2024 11:00 AM EDT Hospital Encounter Non-Invasive [place] [address] Arrived 02/22/2025 1:30 PM EDT Appointment Hematology [place] [address] 02/22/2025 2:30 PM EDT Office Visit Hematology [place] [address] Ellis Childers MD [facility] HEMATOLOGY [place] [address] Felicita Landa APRN [facility] DR HEMATOLOGY [place] [address] documented as of this encounter Visit Diagnoses Not on filedocumented in this encounter Care Teams Creative Producer Relationship Specialty Start Date End Date Radha Mckeon MD [address] [place] [address] PCP - General 09/23/10 documented as of this encounter
--- OUTSIDE RECORDS SUMMARY | 2024-07-24 17:32 | XMS_ITS | Encounter Summary ---
Author Organization [facility] [place] [address] Care Team Providers Care Stud Sheep Farmer Name Role Phone Radha Mckeon MD Primary Care Provider [phone] Reason for Visit * Reason Onset Date Comments Other 08/09/2012 ECG order Encounter Details Date Type Department Care Team (Late st Contact Info) Description 08/09/2012 Telephone Cardiology at [address] [address] Diogo Robb PA [facility] [place] [address] Other (ECG order) Social History Tobacco Use Types Packs/Day [...] Telephone Encounter - Rosanna Altamirano - 08/09/2012 2:17 PM EDT Hi, Please sign the attached ECG order. Thanks, Magdalena documented in this encounter Plan of Treatment Upcoming Encounters Date Type Department Care Team (Late st Contact Info) Description 08/18/2024 11:00 AM EDT Hospital Encounter [place] [address] Arrived 02/22/2025 1:30 PM EDT Appointment Hematology [place] [address] 02/22/2025 2:30 PM EDT Office Visit [place]ematology [place] [phone] Ellis Childers MD [facility] DR HEMATOLOGY [place] [address] Felicita Landa APRN [facility] DR HEMATOLOGY [place] [address] documented as of this encounter Visit Diagnoses Not on filedocumented in this encounter Care Teams Stud Sheep Farmer Relationship Specialty Start Date End Date Radha Mckeon MD [address] [place] [address] PCP - General 09/23/10 documented as of this encounter
--- OUTSIDE RECORDS SUMMARY | 2024-07-24 17:32 | XMS_ITS | Encounter Summary ---
Author Organization [facility] [place] [address] Care Team Providers Care Rn Registry Name Role Phone Radha Mckeon MD Primary Care Provider [phone] Encounter Details Date Type Department Care Team (Late st Contact Info) Description 11/28/2012 1:40 PM EST Clinical [place] [id number] Social History Tobacco Use Types Packs/Day Years [...] Taken Comments Blood Pressure - - Pulse 61 11/28/2012 1:30 PM EST Temperature - - Respiratory Rate - - Oxygen Saturation 96% 11/28/2012 1:30 PM EST Inhaled Oxygen Concentration - - Weight 88.6 kg (195 lb 6.4 oz) 11/28/2012 1:30 P M EST Height 182.9 cm (6') 11/28/2012 1:30 PM EST Body Mass Index 26.5 11/28/2012 1:30 PM EST documented in this encounter Progress Notes * Angélica Landa, RN - 11/28/2012 2:06 PM EST Pre-anesthesia questionnaire reviewed with patient. Blood pressure is under good control with meds.Patient says he has a fatty liver and that he is being monitored closely and is stable. Patient recently put back on coumadin. Pre-op folder reviewed with patient and all questions addressed. Procedure scheduled for 12-12-[address] Byrd. No testing in PAT ordered for today. Patient to have CTscan today. documented in this encounter Plan of Treatment Upcoming Encounters Date Type Department Care Team (Late st Contact Info) Description 08/18/2024 11:00 AM EDT Hospital Encounter Non[place] [address] Arrived 02/22/2025 1:30 PM EDT Appointment Hematology [place] [address] 02/22/2025 2:30 PM EDT Office Visit Hematology and Oncology at [place] [phone] Ellis Childers MD [facility] [address] HEMATOLOGY [place] [address] Felicita Landa APRN [facility] [address] HEMATOLOGY [place] [address] documented as of this encounter Visit Diagnoses Not on filedocumented in this encounter Care Teams Rn Registry Relationship Specialty Start Date End Date Radha Mckeon MD [address] [place] [address] PCP - General 09/23/10 documented as of this encounter
--- OUTSIDE RECORDS SUMMARY | 2024-07-24 17:33 | XMS_ITS | Encounter Summary ---
Author Organization [facility] Address [address] [place] [address] Care Team Providers Care Supervisor Industrial Garment Name Role Phone Radha Mckeon MD Primary Care Provider [phone] Reason for Visit * Reason Comments Follow-up Encounter Details Date Type Department Care Team (Latest Contact Info) Description 04/03/2020 14:00 EDT Office Visit [facility] Adult Hematology & Oncology [address] [place] [id number] Kenisha Woods, KOSTAS [address] [facility] [address] [place] [address] Thrombocytopenia ([facility]) (Primary Dx) Social History Tobacco Use Types Packs/Day Years Used Date Smoking Tobacco: Former Cigarettes 2.5 16 1 967 - 1982 Smokeless Tobacco: Never Alcohol Use Standard Drinks/Week Comments Not Currently 0 (1 standard drink = 0.6 oz pur e alcohol) Sex and Gender Information Value Date Recorded Sex Assigned at Not on file Gender Identity Male 03/27/2020 12:31 EDT Sexual Orientation Not on file COVID-19 Exposure Response Date Recorded In the last month, have you been in contact with someone who was confirmed or suspected to have Coronavirus / COVID-19? No / Unsure 04/03/2020 14:04 EDT documented as of this encounter Last Filed Vital Signs Vital Sign Reading Time Taken Comments Blood Pressure 132/78 04/03/2020 1404 EDT Pulse 56 04/03/2020 1404 EDT Temperature - - Respiratory Rate - - Oxygen Saturation 98% 04/03/2020 1404 EDT Inhaled Oxygen Concentration - - Weight 75.8 kg (167 lb) 04/03/2020 1404 EDT Height 180.3 cm (5' 11) 04/03/2020 1404 EDT Body Mass Index 23.29 04/03/2020 1404 EDT documented in this encounter Functional Status Functional Status Response Date of Assess ment Because of a physical, menta l, or emotional condition, does this person have difficulty doing errands alone such as visiting a doctor's office or shopping? No 04/03/2020 Cognitive Status Response Date of Assessm ent Because of a physical, menta l, or emotional condition, does this person have serious difficulty concentrating, remembering, or making decisions? No 04/03/2020 documented as of this encounter Progress Notes * Kenisha Woods MBBS - 04/03/2020 1400 EDT Hematology Follow-up Note Date of Service: 04/03/2020 Hematology History: Thrombocytopenia: -12/22/2018: Platelet count: 79 -07/25/2019: Platelet count: 83 -09/13/2019: Platelet count: 83, ultrasound: Small accessory spleen -10/06/2019: HIV testing: Negative Hepatitis B, C work-up: Negative Vitamin B12 level: 365, folate level:>20 Subjective: Malik is being seen in follow-up today. Today, Malik mentions that he had revision in right knee for pain. Currently, he is being able to walk 2 to 3 miles per day. He denies weight or appetite changes, chest pain, shortness of breath, early satiety, abdominal pain, changes in bladder or bowel habits, bruising or bleeding issues. Review of Systems: All 10 systems have been reviewed and are negative except for the mentioned above. Medications: Current Outpatient Medications Medication Sig Dispense Refill Last Dose ??? acetaminophen (TYLENOL) 500 mg tablet Take 1,000 mg by mouth as needed for Headaches. Taking ??? acyclovir (ZOVIRAX) 200 mg capsule 1 Cap. Taking ??? baclofen (LIORESAL) 10 mg tablet Take 10 mg by mouth daily as needed. 0 Taking ??? botulinum toxin A (BOTOX) 200 unit injection Inject 200 Units as directed every 90 days. Taking ??? diclofenac sodium 1 % gel Apply topically daily as needed. Taking ??? ELIQUIS 5 mg tablet Take 5 mg by mouth 2 times daily. 0 Not Taking ??? levothyroxine (SYNTHROID) 100 mcg tablet Take 100 mcg by mouth daily. 0 Taking ??? metoprolol XL (TOPROL-XL) 100 mg tablet Take 150 mg by mouth daily. 0 Taking ??? multivitamin (THERAGRAN) per tablet Take 1 Tab by mouth daily. Taking ??? omega-3 fatty acids/fish oil (FISH OIL-OMEGA-3 FATTY ACIDS) 300-1,000 mg capsule Take 1 g by mouth daily. Taking ??? omeprazole (PRILOSEC) 20 mg capsule Take 20 mg by mouth 2 times daily. 0 Taking ??? oxyCODONE (OXY-IR) 15 mg immediate release tablet Take 7.5 mg by mouth as needed for Pain. Taking ??? QUEtiapine (SEROQUEL) 25 mg tablet Take 25 mg by mouth. Not Taking ??? ranitidine (ZANTAC) 150 mg capsule Take 150 mg by mouth daily. Not Taking ??? rivaroxaban (XARELTO) 10 mg tablet tablet Take 10 mg by mouth daily with dinner. ??? simvastatin (ZOCOR) 10 mg tablet Take 10 mg by mouth at bedtime. 0 Taking ??? sumatriptan (IMITREX) 100 mg tablet Take 100 mg by mouth once. 1/2-1 tab. As needed for headache 1 Taking ??? SUMAtriptan (IMITREX) 20 mg/actuation nasal spray 1 [place] by nasal route PRE-OP Q 2 HOURS. Not Taking ??? triamcinolone (KENALOG) 0.1 % ointment Apply 0.1 Doses topically to affected area 3 times dailyas needed. 0 Taking ??? Triamcinolone Acetonide (KENALOG) 0.025 % lotion Apply topically as needed. Taking ??? valACYclovir (VALTREX) 500 mg tablet Take 500 mg by mouth daily. 0 Taking ??? verapamil (CALAN-SR) 120 mg CR tablet Take 120 mg by mouth once. 0 Taking No current facility-administered medications for this visit. Objective: VS: Patient Vitals for the past 24 hrs: BP Pulse SpO2 Height Weight 04/03/20 1404 132/78 56 98 % 180.3 cm (71) 75.8 kg (167 lb) Physical Exam: General appearance: Awake, alert, oriented x3, NAD. Skin: Skin color, tempature, turgor normal, no rashes on skin Head: Normocephalic, without obvious abnormality Eyes: sclerae anicteric Neck: supple, symmetrical Lungs: clear to auscultation bilaterally Heart: regular rate and rhythm Abdomen: soft, non-tender; bowel sounds normal, no hepatosplenomegaly Extremities: extremities warm, atraumatic Data Review: Labs: Results for orders placed or performed in visit on 04/03/20 CBC W/PLT & DIFF,POINT OF CARE - [facility] Result Value Ref Range Gran # 3.7 1.7 - 7.0 10e3/uL BASO # - [facility] 0.02 0.0 - 0.3 10e3/uL BASO % - [facility] 0 0 - 2 % EOS # - [facility] 0.11 0.05 - 0.5 10e3/uL EOS % - [facility] 2 0 - 5 % GRAN % - [facility] 68.8 40 - 80 % HEMATOCRIT - [facility] 44.6 36.0 - 52.0 % HEMOGLOBIN - [facility] 15.2 13.7 - 17.5 g/dl LYMPH # - [facility] 0.9 0.9 - 2.9 10e3/ul LYMPH% - [facility] 16.4 (L) 20 - 40 % MEAN CORPUSCULAR HGB - [facility] 30.6 26 - 34 pg MEAN CORPUSCULAR HGB CONC - [facility] 34.1 31 - 36 g/dL MEAN CELL VOLUME - [facility] 89.9 77 - 100 fl MONO # - [facility] 0.7 0.3 - 0.9 10e3/uL MONO% - [facility] 12.3 (H) 0 - 12 % PLATELET COUNT - [facility] 128 (L) 150 - 400 10e3/ul RED BLOOD COUNT - [facility] 4.96 4.3 - 5.7 10e6/ul RED CELL DISTRI WIDTH - [facility] 13.6 11.8 - 15.6 % WHITE BLOOD COUNT - [facility] 5.3 3.5 - 10.5 10e3/ul Assessment: 69-year-old male with past medical history significant for hypothyroidism, atrial fibrillation who has low-grade thrombocytopenia since December,. He was ruled out for HIV and hepatitis B, C. B12 and folate levels were normal. On review of his medications, acyclovir and valacyclovir can be associated with thrombocytopenia but drug-induced thrombocytopenia is usually severe. Low-grade thrombocytopenia in his situation could be idiopathic in nature/from accessory spleen. Repeat CBC from today confirms low-grade thrombocytopenia at 128. I mentioned to him that he would be monitored with CBC checks every 3 to 6 months. We would not treat ITP until the platelet count is less than 20,000- 30,000. I also briefly discussed treatment options for ITP including steroids, rituximab, IVIG, thrombopoietin receptor agonists. Plan: #1. Patient has low-grade ITP. #2. As platelet count is close to normal, he would not be needing any treatment. #3. Treatment is required for ITP if the platelet count is less than 20,000 #4. Briefly discussed treatment options for ITP. Follow-up: 3 months with CBC Other Orders Placed This Visit Procedures ? ? CBC W/PLT & DIFF,POINT OF CARE [facility] Kenisha Woods MD Clinical Practice Physician Hematology/ Medical Oncology [facility] Ph no: [phone] * Sloane Bertrand LPN - 04/03/2020 1400 EDT Procedures: - Venipuncture Performed by: SLOANE BERTRAND LPN Site Collected: Right Antecubital Space Volume Withdrawn: STT: 8.5ml and Lavender Top: 3.0ml Patient Response:Patient tolerated venipuncture well Number of attempts: Collected on: 04/03/20 15:06 Ordering Provider:Kenisha Woods MD documented in this encounter Plan of Treatment Not on file documented as of this encounter Procedures Procedure Name Priority Date/Time Associated Diagnosis Comments CBC W[facility]PLT & DIFF[facility] Routine 04/03/2020 14:02 EDT documented in this encounter Results * (ABNORMAL) CBC W/PLT & DIFF,POINT OF CARE [facility] (04/03/2020 14:02 EDT) Gran # 3.7 1.7 - 7.0 10e3/uL 04/03/2020 14:22 [facility] BASO # - [facility] 0.02 0.0 - 0.3 10e3/uL 04/03/2020 14:22 [facility] BASO % - [facility] 0 0 - 2 % 04/03/2020 14:22 [facility] EOS # - [facility] 0.11 0.05 - 0.5 10e3/uL 04/03/2020 14:22 [facility] EOS % - [facility] 2 0 - 5 % 04/03/2020 14:22 [facility] GRAN % - [facility] 68.8 40 - 80 % 04/03/2020 14:22 [facility] HEMATOCRIT - [facility] 44.6 36.0 - 52.0 % 04/03/2020 14:22 [facility] HEMOGLOBIN - [facility] 15.2 13.7 - 17.5 g/dl 04/03/2020 14:22 [facility] LYMPH # - [facility] 0.9 0.9 - 2.9 10e3/ul 04/03/2020 14:22 [facility] LYMPH% - [facility] 16.4(L) 20 - 40 % 04/03/2020 14:22 [facility] MEAN CORPUSCULAR HGB - [facility] 30.6 26 - 34 pg 04/03/2020 14:22 [facility] MEAN CORPUSCULAR HGB CONC - [facility] 34.1 31 - 36 g/dL 04/03/2020 14:22 [facility] MEAN CELL VOLUME - [facility] 89.9 77 - 100 fl 04/03/2020 14:22 [facility] MONO # - [facility] 0.7 0.3 - 0.9 10e3/uL 04/03/2020 14:22 [facility] MONO% - [facility] 12.3(H) 0 - 12 % 04/03/2020 14:22 [facility] PLATELET COUNT 128(L) 150 - 400 10e3/ul 04/03/2020 14:22 EDT [facility] RED BLOOD COUNT - [facility] 4.96 4.3 - 5.7 10e6/ul 04/03/2020 14:22 EDT [facility] RED CELL DISTRI WIDTH - [facility] 13.6 11.8 - 15.6 % 04/03/2020 14:22 EDT [facility] WHITE BLOOD COUNT - [facility] 5.3 3.5 - 10.5 10e3/ul 04/03/2020 14:22 EDT [facility] 04/03/2020 14:0 2 EDT 04/03/2020 14:02 EDT Kenisha KENYON CHEMISTRY & BLOOD GAS ORDERABLES [facility] documented in this encounter Visit Diagnoses Diagnosis Thrombocytopenia ([facility])- Primary Thrombocytopenia, unspecified documented in this encounter Historical Medications * This list may reflect changes made after this encounter. Medication Sig Dispensed Refills Start Date End Date rivaroxaban (XARELTO) 10 mg tablet tablet Take 10 mg by mouth daily with dinner. acetaminophen (TYLENOL) 500 mg tablet Take 1,000 mg by mouth as needed for Headaches. acyclovir (ZOVIRAX) 200 mg capsule 1 Cap. diclofenac sodium 1 % gel Apply topically daily as needed. multivitamin (THERAGRAN) per tablet Take 1 Tab by mouth daily. omega-3 fatty acids/fish oil (FISH OIL-OMEGA-3 FATTY ACIDS) 300-1,000 mg capsule Take 1 g by mouth daily. botulinum toxin A (BOTOX) 200 unit injection Inject 200 Units as directed every 90 days. 09/14/2017 oxyCODONE (OXY-IR) 15 mg immediate release tablet Take 7.5 mg by mouth as needed for Pain. QUEtiapine (SEROQUEL) 25 mg tablet Take 25 mg by mouth. 01/27/2017 ranitidine (ZANTAC) 150 mg capsule Take 150 mg by mouth daily. SUMAtriptan (IMITREX) 20 mg/actuation nasal spray 1 [place] by nasal route PRE-OP Q 2 HOURS. Triamcinolone Acetonide (KENALOG) 0.025 % lotion Apply topically as needed. added in this encounter Care Teams Supervisor Industrial Garment Relationship Specialty Start Date End Date Radha Mckeon MD [address] [place] [id number] PCP - General 04/03/20 documented as of this encounter
--- OUTSIDE RECORDS SUMMARY | 2024-07-24 17:33 | XMS_ITS | Clinical Summary ---
Author Organization [facility] Address [address] [place] [address] Care Team Providers Care Program Therapist Name Role Phone Radha Mckeon MD Primary Care Provider [phone] Allergies Active Allergy Reactions Criticality Noted Date Comments Amitriptyline Palpitations,Other ( See Comments) Medium 01/23/2017 Adverse drug effect Other reaction(s): heart races, Other (See Comment) Atorvastatin Other (See Comments) 01/23/2017 Adverse effect caused liver enzyme abnormalitiies Other reaction(s): Other (See Comment) Flecainide Other (See Comments) 01/23/2017 Adverse effect caused TN and QRS prolongation Other reaction(s): Other (See Comment) Zolpidem High 08/27/2020 Other reaction(s): bad dreams Other reaction(s): bad dreams Medications Medication Sig Dispensed Refills Start Date End Date Status verapamil (CALAN-SR) 120 mg CR tablet Take 120 mg by mouth once. 0 08/12/2019 Active valACYclovir (VALTREX) 500 mg tablet Take 500 mg by mouth daily. 0 08/12/2019 Active triamcinolone (KENALOG) 0.1 % ointment Apply 0.1 Doses topically to affected area 3 times daily as needed. 0 07/25/2019 Active sumatriptan (IMITREX) 100 mg tablet Take 100 mg by mouth once. 1/2-1 tab. As needed for headache 1 09/26/2019 Active simvastatin (ZOCOR) 10 mg tablet Take 10 mg by mouth at bedtime. 0 09/02/2019 Active omeprazole (PRILOSEC) 20 mg capsule Take 20 mg by mouth 2 times daily. 0 07/25/2019 Active metoprolol XL (TOPROL-XL) 100 mg tablet Take 150 mg by mouth daily. 0 08/12/2019 Active levothyroxine (SYNTHROID) 100 mcg tablet Take 100 mcg by mouth daily. 0 07/06/2019 Active baclofen (LIORESAL) 10 mg tablet Take 10 mg by mouth daily as needed. 0 09/26/2019 Active ELIQUIS 5 mg tablet Take 5 mg by mouth 2 times daily. 0 08/15/2019 Active Triamcinolone Acetonide (KENALOG) 0.025 % lotion Apply topically as needed. Active SUMAtriptan (IMITREX) 20 mg/actuation nasal spray 1 [place] by nasal route PRE-OP Q 2 HOURS. Active ranitidine (ZANTAC) 150 mg capsule Take 150 mg by mouth daily. Active QUEtiapine (SEROQUEL) 25 mg tablet Take 25 mg by mouth. 01/27/2017 Acti ve oxyCODONE (OXY-IR) 15 mg immediate release tablet Take 7.5 mg by mouth as needed for Pain. Active botulinum toxin A (BOTOX) 200 unit injection Inject 200 Units as directed every 90 days. 09/14/2017 Active omega-3 fatty acids/fish oil (FISH OIL-OMEGA-3 FATTY ACIDS) 300-1,000 mg capsule Take 1 g by mouth daily. Active multivitamin (THERAGRAN) per tablet Take 1 Tab by mouth daily. Active diclofenac sodium 1 % gel Apply topically daily as needed. Active acyclovir (ZOVIRAX) 200 mg capsule 1 Cap. Active acetaminophen (TYLENOL) 500 mg tablet Take 1,000 mg by mouth as needed for Headaches. Active rivaroxaban (XARELTO) 10 mg tablet tablet Take 10 mg by mouth daily with dinner. Active XARELTO 20 mg tablet tablet 03/26/2020 Active warfarin (COUMADIN) 1 mg tablet Indications: ALTERNATING WITH 2 MG 02/26/2020 Active senna-docusate (PERICOLACE) 8.6-50 mg per tablet Take 2 Tabs by mouth 2 times daily. 11/17/2019 Active polyethylene glycol 3350 (MIRALAX) 17 gram packet Take 17 g by mouth 2 times daily. 11/17/2019 Active methocarbamoL (ROBAXIN) 750 mg tablet Take 750 mg by mouth every 8 hours as needed for Muscle Spasms. 11/17/2019 Active lidocaine 5 % (LIDODERM) 5 % patch Place 3 Patches onto the skin daily. 11/17/2019 Active lamoTRIgine (LAMICTAL) 25 mg tablet Take 50 mg by mouth 2 times daily. 10/10/2019 Active fluticasone propionate (FLONASE) 50 mcg/actuation nasal spray Instill 1 [place] into both nostrils 2 times daily. 02/27/2020 Active tamsulosin (FLOMAX) 0.4 mg capsule Take 1 Cap by mouth daily. 05/20/2020 Active gabapentin (NEURONTIN) 600 mg tablet 3 times daily. 07/02/2020 Active gabapentin (NEURONTIN) 300 mg capsule 04/24/2020 Active cephALEXin (KEFLEX) 500 mg capsule Take 500 mg by mouth. Active lidocaine-prilocaine (EMLA) cream INDRA EXT AA B PRO 09/16/2020 Active doxycycline (VIBRA-TABS) 100 mg tablet TK 1 T PO BID 08/13/2020 Active pregabalin (LYRICA) 100 mg capsule Take by mouth 2 times daily. 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 --Currently on oxycodone. --Lumbar radiculopathy. Altered mental status 01/24/2017 History of atrial fibrillation 01/24/2017 History of ETOH abuse 01/24/2017 Hypothyroidism 01/24/2017 Lightheadedness 12/24/2016 Adverse drug effect 11/24/2016 Overview: --Amitriptyline (palpitations), Lipitor (liver enzyme abnormalities), flecainide (TN/QRS prolongation noted 12/2007). History of loop recorder 02/29/2012 Overview: --S/p pyloric stenosis surgery 1952, appendectomy 1969, right carpal tunnel surgery 1974, spinal fusion 1993 (redo back surgery 1995, 1998), umbilical hernia repair 1997, left carpal tunnel repair 2002, left elbow surgery 2004, right total knee replacement 2009. SURGERY DATE: 01/14/2010 MICHAEL CHAVEZ MD PROCEDURE PERFORMED: Right total knee arthroplasty. IMPLANTS USED: All implants were from the [employer] Varsity total knee system. 1. A size 4 press-fit cruciate retaining porous femoral component. 2. A size 4 press-fit porous rotating platform tibial tray. 3. A size 4 x 10-mm rotating platform polyethylene. 4. A 35-mm round patella. 5. Half batch of quick set cement. ILR Paroxysmal atrial fibrillation ([facility]) 011 Overview: --Recurrent AF --S/P cardioversions x 3 (09/2005, 01/2006, 07/2007). --AF that has resolved spontaneously (12/2006, etc). 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 --Flecainide stopped after 4 doses due to TN/QRS prolongation, 12/2007. --Started on dofetilide 500mcg BID [...] isolated; posterior wall isolation performed, stage IV. Essential hypertension 08/13/2011 RBBB (right bundle branch bl ock with left anterior fascicular block) 08/13/2011 Immunizations Name Administration Dates Next Due Influenza (whole) 08/01/2009,08/01/2007 Influenza Vaccine High Dose (FLUZONE HIGH DOSE) PF 0.7 ml IM (65 yrs+) 07/23/2020 Pneumococcal Polysaccharide (PPSV23) Vaccine (PNEUMOVAX-23) =>2YO SQ/IM 12/10/2007 Surgical History Surgery Date Site/Laterality Comments BACK SURGERY Anterior/posterior spine JOINT REPLACEMENT CARPAL TUNNEL RELEASE APPENDECTOMY Medical History Medical History Date Comments Hypertension Thyroid disease Family History Medical History Relation Comments Cancer Brother Pancreatic Cancer Brother Heart Disease Father Kidney Disease Maternal Aunt Heart Disease Mother Relation Status Comments Brother Father Maternal Aunt Mother Sister Alive Social History Tobacco Use Types Packs/Day Years Used Date Smoking Tobacco: Former Cigarettes 2.5 16 1 7 - 1982 Smokeless Tobacco: Never Alcohol Use Standard Drinks/Week Comments Not Currently 0 (1 standard drink = 0.6 oz pur e alcohol) Interpersonal Safety Answer Date Record ed Physically Hurt Never 06/02/2020 Verbally Threaten Not on file 06/02/2020 Sex and Gender Information Value Date Recorded Sex Assigned at Not on file Gender Identity Male 03/27/2020 12:31 EDT Sexual Orientation Not on file Obstetrics History Last Filed Vital Signs Vital Sign Reading Time Taken Comments Blood Pressure 132/74 11/05/2021 1318 EST Pulse 59 11/05/2021 1318 EST Temperature 35.6 ??C (96.1 ??F) 07/04/2020 1440 EDT Respiratory Rate - - Oxygen Saturation 97% 11/05/2021 1318 EST Inhaled Oxygen Concentration - - Weight 79.8 kg (176 lb) 11/05/2021 1318 EST Height 180.3 cm (5' 11) 04/03/2020 1404 EDT Body Mass Index 24.55 04/03/2020 1404 EDT Plan of Treatment Health Maintenance Due Date Last Done Comments RSV Immunization ( o r 60+ Years) (1 - 1-dose 60+ series) 2012 Fall Risk Screening 2017 COVID-19 Vaccine (2022-24 season) 2023 Hepatitis C Screen Completed 10/04/2019 Procedures Procedure Name Priority Date/Time Associated Diagnosis Comments HEPATITIS C AB W/REFLEX - [facility] Routine 10/04/2019 15:26 EST Thrombocytopenia ([facility]) from Last 3 Months or Most Recently Relevant to Health Maintenance Results * HEPATITIS C AB W/REFLEX - [facility] (10/04/2019 15:26 EST) HEPATITIS C AB W/REFLEX - [facility] Negative 10/04/2019 17:00 EST [facility] Comment:Expected Values: Neg ative. 10/04/2019 15:2 6 EST 10/04/2019 15:26 EST Narrative [facility] - 10/04/2019 17:00 EST Enter/Edit CPT and ICD codes? N Kenisha ATWOODBS CHEMISTRY & BLOOD GAS ORDERABLES [facility] from Last 3 Months or Most Recently Relevant to Health Maintenance Care Teams Program Therapist Relationship Specialty Start Date End Date Radha Mckeon MD [address] [place] [id number] PCP - General 04/03/20
--- OUTSIDE RECORDS SUMMARY | 2024-07-24 17:33 | XMS_ITS | Encounter Summary ---
Author Organization [facility] [place] [address] Care Team Providers Care Digital Media Planner Name Role Phone Radha Mckeon MD Primary Care Provider [phone] Reason for Visit * Reason Onset Date Comments Medication Refill 08/05/2012 Encounter Details Date Type Department Care Team (Late st Contact Info) Description 08/05/2012 Refill Cardiology at [address] [address] Diogo Robb PA [facility] [place] [address] Medication Refill Social History Tobacco Use Types [...] AM EDT Hospital Encounter [place] [address] Arrived 02/22/2025 1:30 PM EDT Appointment Hematology and Oncology at [place] [address] 02/22/2025 2:30 PM EDT Office Visit Hematology and Oncology at [place] [address] Ellis Childers MD [facility] DR HEMATOLOGY [place] [address] Felicita Landa APRN [facility] [address] HEMATOLOGY [place] [address] documented as of this encounter Visit Diagnoses Diagnosis Atrial fibrillation documented in this encounter Care Teams Digital Media Planner Relationship Specialty Start Date End Date Radha Mckeon MD [address] [place] [address] PCP - General 09/23/10 documented as of this encounter
--- OUTSIDE RECORDS SUMMARY | 2024-07-24 17:33 | XMS_ITS | Encounter Summary ---
Author Organization [facility] Address [address] [place] [address] Care Team Providers Care Brake Assembler Name Role Phone Radha Mckeon MD Primary Care Provider [phone] Encounter Details Date Type Department Care Team (Late st Contact Info) Description 02/20/2023 Lab Requisition [facility] Pathology & Laboratory Medicine - [facility] [address], [place] [address] Outr Resulting Lab, Provider Social History Tobacco Use Types Packs/Day Years Used Date Smoking Tobacco: Former Cigarettes 2.5 16 1 1982 Smokeless Tobacco: Never Alcohol Use Standard Drinks/Week Comments Not Currently 0 (1 standard drink = 0.6 oz pur e alcohol) Interpersonal Safety Answer Date Record ed Physically Hurt Never 06/02/2020 Verbally Threaten Not on file 06/02/2020 Sex and Gender Information Value Date Recorded Sex Assigned at Not on file Gender Identity Male 03/27/2020 12:31 EDT Sexual Orientation Not on file documented as of this encounter Functional Status Functional Status Response [...] No 04/03/2020 documented as of this encounter Plan of Treatment Not on file documented as of this encounter Procedures Procedure Name Priority Date/Time Associated Diagnosis Comments PSA TOTAL, DIAGNOSTIC Routine 02/19/2023 13:34 EDT documented in this encounter Results * PSA TOTAL, DIAGNOSTIC (02/19/2023 13:34 EDT) PSA 0.8 <=6.5 ng/mL 02/22/2023 10:11 EDT [facility] Blood VENOUS BLOOD / Unknown 02/19/2023 13:34 EDT 02/20/2023 21:27 EDT Narrative [facility] - 02/22/2023 10:11 EDT NOTE: Serum PSA concentration should not be interpreted as absolute evidence for the presence or absence of malignant disease. Assayed on Siem[employer] XPT using chemiluminescent technology.??Values obtained by using different assay methods cannot be used interchangeably. Provider Outr Resulting Lab CHEMISTRY & BLOOD GAS ORDERABLES [facility] [address] [place] [address] documented in this encounter Visit Diagnoses Not on filedocumented in this encounter Care Teams Brake Assembler Relationship Specialty Start Date End Date Radha Mckeon MD [address] [place] [address] PCP - General 04/03/20 documented as of this encounter
--- OUTSIDE RECORDS SUMMARY | 2024-07-24 17:33 | XMS_ITS | Encounter Summary ---
Author Organization [facility] Address [address] [place] [address] Care Team Providers Care Supervisor Cigar Making Machine Name Role Phone Radha Mckeon MD Primary Care Provider [phone] Encounter Details Date Type Department Care Team (Late st Contact Info) Description 07/26/2021 Lab Requisition [facility] Pathology & Laboratory Medicine - [address] [address] Outr Resulting Lab, Provider Social History Tobacco [...] Procedure Name Priority Date/Time Associated Diagnosis Comments ZZCOVID-19 TEST [facility] PCR Today 07/25/2021 12:05 EDT COVID-19 TESTING Routine 07/25/2021 12:0 5 EDT documented in this encounter Results * COVID-19 TEST [facility] PCR (07/25/2021 12:05 EDT) Swab ENTIRE NASOPHARYNX / Unknown 07/25/2021 12:05 EDT 07/26/2021 21:17 EDT Provider Outr Resulting Lab MICROBIOLOGY - GENERAL ORDERABLES [facility] [address] [place] [address] * COVID-19 TESTING (07/25/2021 12:05 EDT) COVID-19 rt-PCR Result Negative Negative 07/27/2021 15:34 EDT [facility] Comment: This test has not been FDA cleared or approved. This test has been authorized by FDA under an EUA for use by authorized laboratories. This test has been authorized only for detection of nucleic acid from 2019-nCoV, not for any other viruses or pathogens. This test is only authorized for the duration of the declaration that circumstances exist justifying the authorization of emergency use of in vitro diagnostic tests for detection and/or diagnosis of 2019-nCoV under section 564(b)(1) of Act, 21 U.S.C ?? 360bbb-3(b) (1), unless the authorization is terminated or revoked sooner. Negative results do not preclude 2019-nCoV infection and should not be used as the sole basis for treatment or other patient management decisions. Negative results must be combined with clinical observations, patient history, and epidemiological information. This test was developed and its performance characteristics determined by [facility]. It has not been cleared or approved by the US Food and Drug Administration. FDA does not require this test to go through premarket FDA review. This test is used for clinical purposes. It should not be regarded as investigational or for research. This laboratory is certified under the Clinical Laboratory Improvement Amendments (CLIA) as qualified to perform high complexity clinical laboratory testing. This test is based on the CDC COVID-19 Emergency Use Authorization (EUA) assay, with minor modification as defined by the FDA Performed on the Mill33 7 Pro RT-PCR System. Performing Lab [facility] Lab 07/27/2021 15:34 EDT [facility] Swab 07/25/2021 12:0 5 EDT 07/26/2021 21:17 EDT Provider Outr Resulting Lab MICROBIOLOGY - GENERAL ORDERABLES [facility] [address] [place] [address] documented in this encounter Visit Diagnoses Not on filedocumented in this encounter Care Teams Supervisor Cigar Making Machine Relationship Specialty Start Date End Date Radha Mckeon MD [address] [place] [address] PCP - General 04/03/20 documented as of this encounter
--- OUTSIDE RECORDS SUMMARY | 2024-07-24 17:33 | XMS_ITS | Encounter Summary ---
Author Organization [facility] Address [address] [place] [address] Care Team Providers Care Car Dryer Name Role Phone Radha Mckeon MD Primary Care Provider [phone] Encounter Details Date Type Department Care Team (Latest Contact Info) Description 04/03/2020 Travel Social History Tobacco Use Types Packs/Day Years Used Date Smoking Tobacco: Former Cigarettes 2.5 16 1 967 1982 Smokeless Tobacco: Never Alcohol Use Standard [...] 14:04 EDT documented as of this encounter Functional Status [...] on file documented as of this encounter Visit Diagnoses Not on filedocumented in this encounter Care Teams Car Dryer Relationship Specialty Start Date End Date Radha Mckeon MD [address] [place] [address] PCP - General 04/03/20 documented as of this encounter
--- OUTSIDE RECORDS SUMMARY | 2024-07-24 17:33 | XMS_ITS | Encounter Summary ---
[place] [address] Care Team Providers Care Shift Supervisor Name Role Phone Radha Mckeon MD Primary Care Provider [phone] Encounter Details Date Type Department Care Team (Late st Contact Info) Description 01/13/2011 2:00 PM EDT Procedure visit [address] [address] Social History Tobacco Use Types Packs/Day Years Used Date Smoking Tobacco: Never Assessed Sex and Gender Information Value Date Recorded Sex Assigned at Not on file Gender Identity Not on file Sexual Orientation Not on file documented as of this encounter Plan of Treatment Upcoming Encounters Date Type Department Care Team (Late st Contact Info) Description 08/18/2024 11:00 AM EDT Hospital Encounter Non-[place] [address] Arrived 02/22/2025 1:30 PM EDT Appointment Hematology [place] [phone] 02/22/2025 2:30 PM EDT Office Visit Hematology [place] [phone] Ellis Childers MD [facility] [address] [place] [address] Felicita Landa APRN [facility] [address] [place] [address] documented as of this encounter Procedures Procedure Name Priority Date/Time Associated Diagnosis Comments EKG 12-LEAD Routine 01/13/2011 12:46 PM EDT documented in this encounter Results * EKG 12-LEAD (01/13/2011 12:46 PM EDT) Ventricular rate 56 BPM MUSE SYSTEM Atrial Rate 56 BPM MUSE SYSTEM P-R Interval 172 ms MUSE SYSTEM QRS Duration 148 ms MUSE SYSTEM Q-T Interval 486 ms MUSE SYSTEM QTC Calculated (Bezet) 468 ms MUSE SYSTEM Calculated P [place] 33 degrees MUSE SYSTEM Calculated R [place] -56 degrees MUSE SYSTEM Calculated T [place] 1 degrees MUSE SYSTEM INTERPRETATION Sinus bradycardia Right bundle branch block Left anterior fascicular block Bifascicular block Abnormal ECG When compared with ECG of 17-JUN-2010 13:00, No significant change was found Confirmed by Ryland SCHULTZ MD, Sg ([id number]) on 01/14/2011 2:37:28 PM MUSE SYSTEM 01/13/2011 12:4 6 PM EDT 01/14/2011 2:37 PM EDT Unknown ECG ORDERABLES MUSE SYSTEM documented in this encounter Visit Diagnoses Not on filedocumented in this encounter Care Teams Shift Supervisor Relationship Specialty Start Date End Date Radha Mckeon MD [address] [place] [address] PCP - General 09/23/10 documented as of this encounter
--- OUTSIDE RECORDS SUMMARY | 2024-07-24 17:33 | XMS_ITS | Encounter Summary ---
Author Organization [facility] [place] [address] Care Team Providers Care Nurse General Duty Name Role Phone Radha Mckeon MD Primary Care Provider [phone] Reason for Visit * Reason Onset Date Comments Other 07/20/2011 lab order Encounter Details Date Type Department Care Team (Late st Contact Info) Description 07/20/2011 Telephone Cardiology at [address] [address] Diogo Robb PA [facility] [place] [address] Other (lab order) Social History Tobacco Use Types Packs/Day Years Used Date Smoking Tobacco: Former Alcohol Use Standard Drinks/Week Comments Not Asked 0 (1 standard drink = 0.6 oz pur e alcohol) Sex and Gender Information Value Date Recorded Sex Assigned at Not on file Gender Identity Not on file Sexual Orientation Not on file documented as of this encounter Miscellaneous Notes * Telephone Encounter - Rozina Meyer - 07/20/2011 11:51 AM EDT Please sign order for upcoming appointment. documented in this encounter Plan of Treatment Upcoming Encounters Date Type Department Care Team (Late st Contact Info) Description 08/18/2024 11:00 AM EDT Hospital Encounter Non-Invasive [place] [address] Arrived 02/22/2025 1:30 PM EDT Appointment Hematology [place] [address] 02/22/2025 2:30 PM EDT Office Visit Hematology [place] [address] Ellis Childers MD [facility] [place] [address] Felicita Landa APRN [facility] [place] [address] documented as of this encounter Results * (ABNORMAL) Basic Metabolic Panel (non-fasting) (08/13/2011 12:32 PM EDT) [facility] Glucose 123 60 - 199 mg/dL [facility] Comment:Diabetes: >=200 mg/d L plus symptoms Blood Urea Nitrogen 19 10 - 20 mg/dL [facility] Creatinine 0.93 0.80 - 1.50 mg/dL [facility] Sodium 139 135 - 145 mmol/L [facility] Potassium 4.3 3.5 - 5.0 mmol/L [facility] Comment: Please note: ??Patients with WBC >100,000 may have falsely elevated Potassium levels. ??For accurate Potassium quantification in these patients send serum separator tube (gold top) for subsequent determinations. ??Contact the Clinical Chemistry Laboratory if there are any questions. Chloride 102 98 - 107 mmol/L [facility] Carbon Dioxide 33(H) 22 - 31 mmol/L [facility] Anion Gap 4(L) 5 - 15 mmol/L [facility] Calcium 9.8 8.5 - 10.5 mg/dL [facility] Est Glomerular Filtration Rate >60 >=60 [facility] Comment: The National Kidney Disease Education Program (NKDEP) has recommended all laboratories report estimated GFR (eGFR) along with plasma creatinine measurements to assist you with recognition of early kidney disease. Caveats: ??Plasma creatinine should be at steady-state (unchanged within the past week). For patients multiply eGFR by 1.2.MDRD equation has not been validated for pediatric patients and is only valid for patients with age >= 18 years. At present, NKDEP does NOT recommend using [...] with diabetic kidney disease. References: http://nkdep.nih.gov/resources/NKDEP_Suggestn4Labs_0606_508.pdf http://www.kidney.org/professionals/kls/pdf/faq_gfr.pdf Blood specimen (specimen) 08/13/2011 12:32 PM EDT 08/13/2011 12:36 PM EDT Isauro Santana MD CHEMISTRY ORDERABLE [facility] documented in this encounter Visit Diagnoses Diagnosis A-fib- Primary Atrial fibrillation documented in this encounter Care Teams Nurse General Duty Relationship Specialty Start Date End Date Radha Mckeon MD [address] [place] [address] PCP - General 09/23/10 documented as of this encounter
--- OUTSIDE RECORDS SUMMARY | 2024-07-24 17:33 | XMS_ITS | Encounter Summary ---
Author Organization [facility] Address [address] [place] [address] Care Team Providers Care Signaler Name Role Phone Radha Mckeon MD Primary Care Provider [phone] Encounter Details Date Type Department Care Team (Late st Contact Info) Description 12/09/2021 Lab Requisition [facility] Pathology & Laboratory Medicine - [facility] [address] [place] [address] Malik Deleon MD [facility] [place] [address] Encounter for other general examination Social History Tobacco Use Types Packs/Day Years [...] Procedure Name Priority Date/Time Associated Diagnosis Comments SURGICAL PATHOLOGY Today 12/08/2021 18 :20 EST Encounter for other general examination documented in this encounter Results * SURGICAL PATHOLOGY (12/08/2021 18:20 EST) Note to Patient The following pathology results have been interpreted by your pathologist and may be available to you before your health provider has had the opportunity to review them. Please allow time for your provider to receive these results and explore management options, if applicable. 12/10/2021 9:20 [facility] Final Diagnosis A. SKIN OF SCALP, PUNCH BIOPSY: - Seborrheic keratosis, pigmented. 12/10/2021 9:20 [facility] Attestation By the signature below, the attending physician certifies that they have 1) personally conducted a gross and/or microscopic examination of the described specimen(s), and/or personally interpreted the results of laboratory testing of the described specimen(s), and 2) personally rendered or confirmed the above diagnosis. 12/10/2021 9:20 [facility] at 0920 Clinical History Pigmented macule scalp 12/10/2021 9:20 [facility] Gross Description A. Received in formalin labelled with proper patient identification (initials R, J) and head/scalp is a punch biopsy of a pale-walker to dusky arceo-brown mottled irregular lesion (0.6 cm in diameter by less than 0.1 cm in height by 0.2 cm in thickness). Bisected and submitted in A1. Dallin Simon 12/09/2021 15:37 12/10/2021 9:20 [facility] Performing Lab [facility] 12/10/2021 9:20 [facility] Scanned Images 12/10/2021 9:20 [facility] Tissue TISSUE SPECIMEN FROM SKIN / Unknown 12/08/2021 18:20 EST 12/09/2021 15:20 EST Malik Deleon MD PATHOLOGY ORDERABLES [facility] [address] [place] [address] documented in this encounter Visit Diagnoses Diagnosis Encounter for other general examination documented in this encounter Care Teams Signaler Relationship Specialty Start Date End Date Radha Mckeon MD [address] [place] [address] PCP - General 04/03/20 documented as of this encounter
--- OUTSIDE RECORDS SUMMARY | 2024-07-24 17:33 | XMS_ITS | Encounter Summary ---
Author Organization [facility] Address [address] [place] [address] Care Team Providers Care Technician Test Systems Name Role Phone Radha Mckeon MD Primary Care Provider Encounter Details Date Type Department Care Team (Late st Contact Info) Description 03/16/2022 Telephone [facility] Adult Hematology & Oncology [address] [place] [id number] Regine Christie, RN Social History Tobacco Use Types Packs/Day [...] No 04/03/2020 documented as of this encounter Miscellaneous Notes * Telephone Encounter - Regine Christie, RN - 03/16/2022 1624 EDT Gianfranco nurse from [facility] made referral for Fanny 1st with Hem/ONC- Tentative surgery date scheduled for April 19, 2022 hold for surgery- No action needed by Dr. Woods's office at this time. Dr. Woods FYI ONLY. * Telephone Encounter - Christina Smalls - 03/16/2022 1612 EDT Tiffany from [facility] called returning your call please calll her back at [phone] * Telephone Encounter - Regine Christie RN - 03/16/2022 1204 EDT The provider at [facility] Dr. Clayton doesn't agree with this nor feels it would be safe to proceed withsurgery. They are going to speak with Hem/Onc at [facility] to see if they can get him in there to coordinate with. Per Katty at [facility] not to proceed with anything till she calls back with update. * Telephone Encounter - Regine Christie RN - 03/16/2022 1134 EDT Katty from [facility] calling- patient was scheduled to have surgery tomorrow 03/17/22 platlets were 80 and need to be 100 or greater. Surgery had to be cancelled. [facility] would like patient seen MAXIME so he can get his Platelets back up to 100 or greater so he can get his surgery done and scheduled as soon as possible. Surgeon Dr. Rey Clayton- [phone] Please advise documented in this encounter Plan of Treatment Not on file documented as of this encounter Visit Diagnoses Not on filedocumented in this encounter Care Teams Technician Test Systems Relationship Specialty Start Date End Date Radha Mckeon MD [address] [place] [address] PCP - General 04/03/20 documented as of this encounter
--- OUTSIDE RECORDS SUMMARY | 2024-07-24 17:33 | XMS_ITS | Encounter Summary ---
Author Organization [facility] Address [address] [place] [address] Care Team Providers Care Senior Staff Specialized Employment Name Role Phone Radha Mckeon MD Primary Care Provider [phone] Encounter Details Date Type Department Care Team (Late st Contact Info) Description 05/13/2022 Lab Requisition [facility] Pathology & Laboratory Medicine - [address] [address] Outr Resulting Lab, Provider Social History Tobacco [...] Priority Date/Time Associated Diagnosis Comments ZZCOVID-19 TEST [facility] PCR Today 05/12/2022 13:51 EDT COVID-19 TESTING Routine 05/12/2022 13:5 1 EDT documented in this encounter Results * COVID-19 TEST [facility] PCR (05/12/2022 13:51 EDT) Swab 05/12/2022 13:5 1 EDT 05/13/2022 19:51 EDT Provider Outr Resulting Lab MICROBIOLOGY - GENERAL ORDERABLES Performing Organization Address [facility] Co de Phone Number [facility] [address] [place] [address] * COVID-19 TESTING (05/12/2022 13:51 EDT) COVID-19 rt-PCR Result Negative Negative 05/14/2022 10:49 EDT [facility] Comment: This test has not [...] clinical observations, patient history, and epidemiological information. Testing was performed using the ayan SARS-CoV-2 assay ([employer] on the Ayan 6800 System Performing Lab Ayan [address] [facility] 05/14/2022 10:49 EDT [facility] Swab 05/12/2022 13:5 1 EDT 05/13/2022 19:51 EDT Provider Outr Resulting Lab MICROBIOLOGY - GENERAL ORDERABLES Performing Organization Address City/[facility]/ZIP Co de Phone Number [facility] [address] [place] [address] documented in this encounter Visit Diagnoses Not on filedocumented in this encounter Care Teams Senior Staff Specialized Employment Relationship Specialty Start Date End Date Radha Mckeon MD [address] [place] [address] PCP - General 04/03/20 documented as of this encounter
--- OUTSIDE RECORDS SUMMARY | 2024-07-24 17:33 | XMS_ITS | Encounter Summary ---
[place] [address] Care Team Providers Care Gas Engine Repairer Name Role Phone Radha Mckeon MD Primary Care Provider [phone] Encounter Details Date Type Department Care Team (Late st Contact Info) Description 12/09/2011 Orders [place] [address] Nichole Coronel [address]N [facility] [place] [address] S/P TKR (total knee replacement) (Primary Dx) Social History Tobacco Use Types Packs/Day Years Used Date Smoking Tobacco: Former Cigarettes Q uit: 08/13/1983 Smokeless Tobacco: Never Alcohol Use Standard Drinks/Week Comments Not Asked [...] EDT Hospital Encounter Non-Invasive Cardiology Lab [facility] [place] [address] Arrived 02/22/2025 1:30 PM EDT Appointment Hematology [place] [phone] 02/22/2025 2:30 PM EDT Office Visit Hematology [place] [address] Ellis Childers MD [facility] [address] [place] [address] Felicita Landa APRN [facility] HEMATOLOGY [place] [address] documented as of this encounter Results * XR knee diagnostic 1 or 2 view (02/25/2012 3:12 PM EDT) Anatomical Region Laterality Modality Knee N/A Radiographic Nano ging 02/25/2012 3:12 PM EDT Narrative 02/25/2012 5:07 PM EDT Examination KNEE 1 OR 2 VIEWS/RIGHT Clinical History Reason for exam and clinical history: F/U R TKA DOS 01/14/10; Comparison November 2010 and January 2010. Findings Right total knee arthroplasty without radiolucencies are periprosthetic fracture or effusion. ??The left knee is normal. Impression Uncomplicated right total knee arthroplasty. Procedure Note Sierra Isidro MD - 02/25/2012 Examination KNEE 1 OR 2 VIEWS/RIGHT Clinical History Reason for exam and clinical history: F/U R TKA DOS 01/14/10; Comparison November 2010 and January 2010. Findings Right total knee arthroplasty without radiolucencies are periprosthetic fracture or effusion. The left knee is normal. Impression Uncomplicated right total knee arthroplasty. Ganga Mi MD IMG DX ORDERABLES documented in this encounter Visit Diagnoses Diagnosis S/P TKR (total knee replacement)- Primary Knee joint replacement by other means S/P TKR (total knee replacement) Knee joint replacement by other means documented in this encounter Care Teams Gas Engine Repairer Relationship Specialty Start Date End Date Radha Mckeon MD [address] [place] [address] PCP - General 09/23/10 documented as of this encounter
--- OUTSIDE RECORDS SUMMARY | 2024-07-24 17:33 | XMS_ITS | Encounter Summary ---
Author Organization [facility] [place] [address] Care Team Providers Care Cone Treater Name Role Phone Radha Mckeon MD Primary Care Provider [phone] Reason for Visit * Reason Onset Date Comments Medication Refill 05/18/2011 Encounter Details Date Type Department Care Team (Late st Contact Info) Description 05/18/2011 Refill Cardiology at [address] [phone] Diogo Robb PA [facility] [address] Medication Refill Social History Tobacco Use Types [...] AM EDT Hospital Encounter Non-[place] [address] Arrived 02/22/2025 1:30 PM EDT Appointment Hematology [place] [phone] 02/22/2025 2:30 PM EDT Office Visit Hematology [place] [phone] Ellis Childers MD [facility] [address] [place] [address] Felicita Landa APRN [facility] [address] [place] [address] documented as of this encounter Visit Diagnoses Diagnosis Atrial fibrillation documented in this encounter Care Teams Cone Treater Relationship Specialty Start Date End Date Radha Mckeon MD [address] [place] [address] PCP - General 09/23/10 documented as of this encounter
--- OUTSIDE RECORDS SUMMARY | 2024-07-24 17:33 | XMS_ITS | Encounter Summary ---
Author Organization [facility] Address [facility] [place] [address] Care Team Providers Care [employer] Lieutenant Name Role Phone Radha Mckeon MD Primary Care Provider [phone] Encounter Details Date Type Department Care Team (Latest Contact Info) Description 02/25/2012 2:55 PM EDT - 02/25/2012 11:59 PM EDT Hospital Encounter XRay at [address] [place] [address] S/P TKR (total knee replacement) Social History Tobacco Use Types Packs/Day Years [...] by mouth nightly. acetaminophen (TYLENOL) 500 mg tabletIndications:heada heriberto disorder,pain Take 1,000 mg by mouth as needed. Indications: Headache Disorder, Pain 11/17/2019 dofetilide (TIKOSYN) 500 mcg capsuleIndications:Atri al fibrillation Take 1 capsule by mouth 2 times daily. 180 capsule 1 02/09/2012 08/09/2012 aspirin 325 mg tablet Take 325 mg [...] AM EDT Hospital Encounter Non-[place] [address] Arrived 02/22/2025 1:30 PM EDT Appointment Hematology and Oncology at [place] [address] 02/22/2025 2:30 PM EDT Office Visit Hematology and Oncology at [place] [address] Ellis Childers MD [facility] [address] [place] [address] Felicita Landa APRN [facility] [address] [place] [address] documented as of this encounter Procedures Procedure Name Priority Date/Time Associated Diagnosis Comments XR KNEE DIAGNOSTIC 1 OR 2 VIEW Routine 02/25/2012 3:12 PM EDT S/P TKR (total knee replacement) documented in this encounter Results * XR [...] Visit Diagnoses Diagnosis S/P TKR (total knee replacement) Knee joint replacement by other means documented in this encounter Care Teams [employer] Lieutenant Relationship Specialty Start Date End Date Radha Mckeon MD [address] [place] [address] PCP - General 09/23/10 documented as of this encounter
--- OUTSIDE RECORDS SUMMARY | 2024-07-24 17:33 | XMS_ITS | Encounter Summary ---
Author Organization [facility] Address [address] [place] [address] Care Team Providers Care Bevel Operator Name Role Phone Radha Mckeon MD Primary Care Provider [phone] Reason for Visit * Reason Onset Date Comments Other 07/04/2020 Encounter Details Date Type Department Care Team (Late st Contact Info) Description 07/04/2020 Telephone [facility] Adult Hematology & Oncology [address] [place] [address] Kenisha Woods, KOSTAS [address] [facility] [address] [place] [address] Other Social History Tobacco Use Types Packs/Day [...] have Coronavirus / COVID-19? No / Unsure 07/04/2020 14:39 EDT documented as of this encounter Functional [...] encounter Miscellaneous Notes * Telephone Encounter - Gely Neumann RN - 07/10/2020 1405 EDT Called patient, left message on voice mail regarding US results, per Dr. Woods the US was negativefor blood clots. Advised patient to call if they have any further questions or concerns. GELY NEUMANN RN 07/10/20 14:07 * Telephone Encounter - Gely Neumann RN - 07/09/2020 1450 EDT Called patient, left message on voicemail regarding pending test, there are currently no tests pending, CBC was done in the office on the day of his last visit. Advised patient to call if they have any other questions or concerns regarding this. GELY NEUMANN RN 07/09/20 14:51 * Telephone Encounter - Gely Neumann RN - 07/05/[address] Woods, Please see the message below. The patient would like a call when results are in. Thank you. Next availibility even for a call visit is next Wednesday, he would like a call as soon as the results come in if possible, thank you. Christina Almaguer documented in this encounter Plan of Treatment Not on file documented as of this encounter Visit Diagnoses Not on filedocumented in this encounter Care Teams Bevel Operator Relationship Specialty Start Date End Date Radha Mckeon MD [address] [place] [address] PCP - General 04/03/20 documented as of this encounter
--- OUTSIDE RECORDS SUMMARY | 2024-07-24 17:33 | XMS_ITS | Encounter Summary ---
Author Organization [place] [address] Care Team Providers Care Owner Professional Engineer Name Role Phone Radha Mckeon MD Primary Care Provider [phone] Reason for Visit * Reason Onset Date Comments Other 12/31/2011 Encounter Details Date Type Department Care Team (Late st Contact Info) Description 12/31/2011 Telephone Cardiology at [address] [phone] Diogo Robb PA [facility] [place] [address] Other Social History Tobacco Use Types Packs/Day [...] * Telephone Encounter - Rozina Meyer - 12/31/2011 11:19 AM EST Please sign order for upcoming appointment. documented in this encounter Plan of Treatment Upcoming Encounters Date Type Department Care Team (Late st Contact Info) Description 08/18/2024 11:00 AM EDT Hospital Encounter Non-[place]vasive [place] [address] Arrived 02/22/2025 1:30 PM EDT Appointment Hematology [place] [address] 02/22/2025 2:30 PM EDT Office Visit Hematology [place] [address] Ellis Childers MD [facility] DR HEMATOLOGY [place] [address] Felicita Landa APRN [facility] DR HEMATOLOGY [place] [address] documented as of this encounter Visit Diagnoses Diagnosis A-fib- Primary Atrial fibrillation documented in this encounter Care Teams Owner Professional Engineer Relationship Specialty Start Date End Date Radha Mckeon MD [address] [place] [address] PCP - General 09/23/10 documented as of this encounter
--- OUTSIDE RECORDS SUMMARY | 2024-07-24 17:33 | XMS_ITS | Encounter Summary ---
Author Organization [facility] Address [address] [place] [address] Care Team Providers Care Intermediate Project Manager Name Role Phone Radha Mckeon MD Primary Care Provider [phone] Encounter Details Date Type Department Care Team (Late st Contact Info) Description 10/05/2022 Lab Requisition [facility] Pathology & Laboratory Medicine - [address] [address] Outr Resulting Lab, Provider Social History Tobacco [...] Priority Date/Time Associated Diagnosis Comments ZZCOVID-19 TEST [facility] PCR Today 10/05/2022 15:45 EST COVID-19 TESTING Routine 10/05/2022 15:4 5 EST documented in this encounter Results * COVID-19 TEST [facility] PCR (10/05/2022 15:45 EST) Swab 10/05/2022 15:4 5 EST 10/06/2022 16:46 EST Provider Outr Resulting Lab MICROBIOLOGY - GENERAL ORDERABLES Performing Organization Address [facility] Co de Phone Number [facility] [address] [place] [address] * COVID-19 TESTING (10/05/2022 15:45 EST) COVID-19 rt-PCR Result Negative Negative 10/07/2022 16:47 EST [facility] Comment: This test has [...] performed using the ayan SARS-CoV-2 assay ([employer] on the Ayan 6800 System Performing Lab Ayan 6800 [facility] 10/07/2022 16:47 EST [facility] Swab 10/05/2022 15:4 5 EST 10/06/2022 16:46 EST Provider Outr Resulting Lab MICROBIOLOGY - GENERAL ORDERABLES Performing Organization Address [facility]/ZIP Co de Phone Number [facility] [address] [place] [address] documented in this encounter Visit Diagnoses Not on filedocumented in this encounter Care Teams Intermediate Project Manager Relationship Specialty Start Date End Date Radha Mckeon MD [address] [place] [address] PCP - General 04/03/20 documented as of this encounter
--- OUTSIDE RECORDS SUMMARY | 2024-07-24 17:33 | XMS_ITS | Encounter Summary ---
Author Organization [facility] Address [address] [place] [address] Care Team Providers Care Desk Officer Name Role Phone Radha Mckeon MD Primary Care Provider [phone] Reason for Visit * Reason Comments Follow-up 6 months Encounter Details Date Type Department Care Team (Latest Contact Info) Description 04/09/2021 14:00 EDT Office Visit [facility] Adult Hematology & Oncology [address] [place] [address] Kenisha Woods, KOSTAS [address] [facility] [address] [place] [address] Thrombopenia (HCC-CMS) (Primary Dx); Idiopathic thrombocytopenia (HCC-CMS) Social History Tobacco Use Types Packs/Day Years [...] Sign Reading Time Taken Comments Blood Pressure 144/88 04/09/2021 1354 EDT Pulse 59 04/09/2021 1354 EDT Temperature - - Respiratory Rate - - Oxygen Saturation 98% 04/09/2021 1354 EDT Inhaled Oxygen Concentration - - Weight 81.6 kg (180 lb) 04/09/2021 1354 EDT Height - - Body Mass Index 25.1 04/03/2020 1404 EDT documented in this encounter [...] Progress Notes * Kenisha Woods MBBS - 04/09/2021 1400 EDT Hematology Follow-up Note Date of Service: 04/09/2021 Hematology History: Thrombocytopenia: -12/22/2018: Platelet count: 79 -07/25/2019: Platelet count: 83 -09/13/2019: Platelet count: 83, ultrasound: Small accessory spleen -10/06/2019: HIV testing: Negative Hepatitis B, C work-up: Negative Vitamin B12 level: 365, folate level:>20 -04/03/2020: Platelet count: 128 Subjective: Malik is being seen in follow-up today. He denies bruising or bleeding issues. Review of Systems: All 10 systems have been reviewed and are negative except for the mentioned above. Medications: Current Outpatient Medications Medication Sig Dispense Refill Last Dose ??? acetaminophen (TYLENOL) 500 mg tablet Take 1,000 mg by mouth as needed for Headaches. Taking ??? acyclovir (ZOVIRAX) 200 mg capsule 1 Cap. Not Taking ??? baclofen (LIORESAL) 10 mg tablet Take 10 mg by mouth daily as needed. 0 Taking ??? botulinum toxin A (BOTOX) 200 unit injection Inject 200 Units as directed every 90 days. Not Taking ??? cephALEXin (KEFLEX) 500 mg capsule Take 500 mg by mouth. Not Taking ??? diclofenac sodium 1 % gel Apply topically daily as needed. Taking ??? doxycycline (VIBRA-TABS) 100 mg tablet TK 1 T PO BID Not Taking ??? ELIQUIS 5 mg tablet Take 5 mg by mouth 2 times daily. 0 Not Taking ??? fluticasone propionate (FLONASE) 50 mcg/actuation nasal spray Instill 1 [place] into both nostrils 2 times daily. Taking ??? gabapentin (NEURONTIN) 300 mg capsule Not Taking ??? gabapentin (NEURONTIN) 600 mg tablet 3 times daily. Not Taking ??? influenza high dose vaccine , PF,, 65 yrs+, (FLUZONE HIGHDOSE QUAD 20-21 PF) IM injection-syringe seasonal Taking ??? lamoTRIgine (LAMICTAL) 25 mg tablet Take 50 mg by mouth 2 times daily. Taking ??? levothyroxine (SYNTHROID) 100 mcg tablet Take 100 mcg by mouth daily. 0 Taking ??? lidocaine 5 % (LIDODERM) 5 % patch Place 3 Patches onto the skin daily. Not Taking ??? lidocaine-prilocaine (EMLA) cream INDRA EXT AA B PRO Not Taking ??? methocarbamoL (ROBAXIN) 750 mg tablet Take 750 mg by mouth every 8 hours as needed for Muscle Spasms. Not Taking ??? metoprolol XL (TOPROL-XL) 100 mg tablet Take 150 mg by mouth daily. 0 Taking ??? multivitamin (THERAGRAN) per tablet Take 1 Tab by mouth daily. Taking ??? Multivits,Ca,Duvqnldz-Uubm-OO 9 mg iron-400 mcg tablet Take 1 Tab by mouth daily. Not Taking ??? omega-3 fatty acids/fish oil (FISH OIL-OMEGA-3 FATTY ACIDS) 300-1,000 mg capsule Take 1 g by mouth daily. Taking ??? omeprazole (PRILOSEC) 20 mg capsule Take 20 mg by mouth 2 times daily. 0 Taking ??? oxyCODONE (OXY-IR) 15 mg immediate release tablet Take 7.5 mg by mouth as needed for Pain. Taking ??? polyethylene glycol 3350 (MIRALAX) 17 gram packet Take 17 g by mouth 2 times daily. Taking ??? pregabalin (LYRICA) 100 mg capsule Take by mouth 2 times daily. Taking ??? pregabalin (LYRICA) 75 mg capsule TAKE 1 CAPSULE BY MOUTH TWICE DAILY DISCONTINUE GABAPENTIN Not Taking ??? QUEtiapine (SEROQUEL) 25 mg tablet Take 25 mg by mouth. Not Taking ??? ranitidine (ZANTAC) 150 mg capsule Take 150 mg by mouth daily. Not Taking ??? rivaroxaban (XARELTO) 10 mg tablet tablet Take 10 mg by mouth daily with dinner. Taking ??? senna-docusate (PERICOLACE) 8.6-50 mg per tablet Take 2 Tabs by mouth 2 times daily. Not Taking ??? simvastatin (ZOCOR) 10 mg tablet Take 10 mg by mouth at bedtime. 0 Taking ??? sumatriptan (IMITREX) 100 mg tablet Take 100 mg by mouth once. 1/2-1 tab. As needed for headache 1 Taking ??? SUMAtriptan (IMITREX) 20 mg/actuation nasal spray 1 [place] by nasal route PRE-OP Q 2 HOURS. Not Taking ??? tamsulosin (FLOMAX) 0.4 mg capsule Take 1 Cap by mouth daily. Taking ??? triamcinolone (KENALOG) 0.1 % ointment Apply 0.1 Doses topically to affected area 3 times dailyas needed. 0 Taking ??? Triamcinolone Acetonide (KENALOG) 0.025 % lotion Apply topically as needed. Taking ??? valACYclovir (VALTREX) 500 mg tablet Take 500 mg by mouth daily. 0 Not Taking ??? verapamil (CALAN-SR) 120 mg CR tablet Take 120 mg by mouth once. 0 Taking ??? warfarin (COUMADIN) 1 mg tablet Indications: ALTERNATING WITH 2 MG Not Taking ??? XARELTO 20 mg tablet tablet Taking No current facility-administered medications for this visit. Objective: VS: Patient Vitals for the past 24 hrs: BP Pulse SpO2 Weight 04/09/21 1354 (!) 144/88 59 98 % 81.6 kg (180 lb) Physical Exam: General appearance: Awake, alert, oriented x3, NAD Skin: Skin color, tempature, turgor normal, no petechia or purpura noted Head: Normocephalic, without obvious abnormality Eyes: sclerae anicteric Neck: supple, symmetrical Lungs: clear to auscultation bilaterally Heart: regular rate and rhythm Abdomen: soft, non-tender; bowel sounds normal Extremities: extremities warm, atraumatic Data Review: Labs: Results for orders placed or performed in visit on 04/09/21 CBC W/PLT & DIFF,POINT OF CARE - [facility] Result Value Ref Range ABSOLUTE NEUTROPHIL COUN - [facility] 4.1 2.2 - 8.85 10e3/uL BASO # - [facility] 0.01 0.01 - 0.11 10e/uL BASO % - [facility] 0 0 - 2 % EOS # - [facility] 0.10 0.03 - 0.61 10e3/uL EOS % - [facility] 2 0 - 5 % GRAN % - [facility] 70.6 40 - 80 % HEMATOCRIT - [facility] 46.7 39.5 - 50.2 % HEMOGLOBIN - [facility] 16.0 13.8 - 17.3 g/dl LYMPH # - [facility] 1.0 (L) 1.09 - 3.3 10e3/ul LYMPH% - [facility] 16.5 (L) 20 - 40 % MEAN CORPUSCULAR HGB - [facility] 31.8 27.6 - 33.0 pg MEAN CORPUSCULAR HGB CONC - [facility] 34.3 32.8 - 36.4 g/dl MEAN CELL VOLUME - [facility] 92.8 81 - 95 fl MONO # - [facility] 0.6 0.1 - 0.8 10e3/uL MONO% - [facility] 11.0 0 - 12 % PLATELET COUNT 85 (L) 141 - 377 10e3/ul RED BLOOD COUNT - [facility] 5.03 4.36 - 5.78 10e6/ul RED CELL DISTRI WIDTH - [facility] 12.4 <14.2 % WHITE BLOOD COUNT - [facility] 5.8 4.0 - 10.4 10e3/ul Assessment: 69-year-old male with past medical history significant for hypothyroidism, atrial fibrillation who has low-grade thrombocytopenia since December,. He was ruled out for HIV and hepatitis B, C. B12 and folate levels were normal. Low-grade thrombocytopenia in his situation could be idiopathic in nature/from accessory spleen. Repeat CBC from today with platelet count at 85,000. I mentioned to him that he would be monitored with CBC checks every 6 months. We would not treat ITP until the platelet count is less than 20,000-30,000. Plan: #1. Patient has low-grade ITP. #2. He would need treatment for ITP if platelet count is less than 20,000 Follow-up: 6 months with CBC I spent a total of 20 minutes on the date of this encounter meeting with the patient and reviewing documentation/coordinating care as described in the above note. No procedures were performed at the time of the visit. No orders of the defined types were placed in this encounter. Kenisha Woods MD Clinical Practice Physician Hematology/ Medical Oncology [facility] Ph no: [phone] * Kwabena Cordero MA - 04/09/2021 1400 EDT Suspicion of Abuse: no - If yes, please document evidence: - Assessed on: 04/09/21 13:54 - Assessed by: KWABENA CORDERO MA Procedures: - Venipuncture Performed by: KWABENA CORDERO MA Site Collected: Left Antecubital Space Volume Withdrawn: STT: 8.5ml and Lavender Top: 3.0ml Patient Response:Patient tolerated venipuncture well and Butterfly used Number of attempts: 1 Collected on: 04/09/21 14:21 Ordering Provider:Kenisha Woods MD documented in this encounter Plan of Treatment Not on file documented as of this encounter Procedures Procedure Name Priority Date/Time Associated Diagnosis Comments CBC W/PLT & DIFF,POINT OF CARE - [facility] [place] [place] Routine 04/09/2021 14:21 EDT Thrombopenia ([facility]) documented in this encounter Results * (ABNORMAL) CBC W/PLT & DIFF,POINT OF CARE - [facility] [place] [place] (04/09/2021 14:21 EDT) ABSOLUTE NEUTROPHIL COUN - [facility] [place] [place] 4.1 2.2 - 8.85 10e3/uL 04/09/2021 14:54 EDT [facility] BASO # - [facility] [place] [place] 0.01 0.01 - 0.11 10e/uL 04/09/2021 14:54 EDT [facility] BASO % - [facility] [place] [place] 0 0 - 2 % 04/09/2021 14:54 EDT [facility] EOS # - [facility] [place] [place] 0.10 0.03 - 0.61 10e3/uL 04/09/2021 14:54 [facility] EOS % - [facility] [place] [place] 2 0 - 5 % 04/09/2021 14:54 [facility] GRAN % - [facility] [place] [place] 70.6 40 - 80 % 04/09/2021 14:54 [facility] HEMATOCRIT - [facility] [place] [place] 46.7 39.5 - 50.2 % 04/09/2021 14:54 [facility] HEMOGLOBIN - [facility] [place] [place] 16.0 13.8 - 17.3 g/dl 04/09/2021 14:54 [facility] LYMPH # - [facility] [place] [place] 1.0(L) 1.09 - 3.3 10e3/ul 04/09/2021 14:54 [facility] LYMPH% - [facility] [place] [place] 16.5(L) 20 - 40 % 04/09/2021 14:54 [facility] MEAN CORPUSCULAR HGB - [facility] [place] [place] 31.8 27.6 - 33.0 pg 04/09/2021 14:54 [facility] MEAN CORPUSCULAR HGB CONC - [facility] [place] [place] 34.3 32.8 - 36.4 g/dl 04/09/2021 14:54 [facility] MEAN CELL VOLUME - [facility] [place] [place] 92.8 81 - 95 fl 04/09/2021 14:54 [facility] MONO # - [facility] [place] [place] 0.6 0.1 - 0.8 10e3/uL 04/09/2021 14:54 [facility] MONO% - [facility] [place] [place] 11.0 0 - 12 % 04/09/2021 14:54 [facility] PLATELET COUNT 85(L) 141 - 377 10e3/ul 04/09/2021 14:54 [facility] RED BLOOD COUNT - [facility] [place] [place] 5.03 4.36 - 5.78 10e6/ul 04/09/2021 14:54 [facility] RED CELL DISTRI WIDTH - [facility] [place] [place] 12.4 <14.2 % 04/09/2021 14:54 [facility] WHITE BLOOD COUNT - [facility] [place] [place] 5.8 4.0 - 10.4 10e3/ul 04/09/2021 14:54 EDT [facility] 04/09/2021 14:2 1 EDT 04/09/2021 14:21 EDT Kenisha Jamee KENYON CHEMISTRY & BLOOD GAS ORDERABLES [facility] [address] [place] [address] documented in this encounter Visit Diagnoses Diagnosis Thrombopenia (HCC-CMS)- Primary Thrombocytopenia, unspecified 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 Medication Sig Dispensed Refills Start Date End Date pregabalin (LYRICA) 100 mg capsule Take by mouth 2 times daily. 03/14/2021 pregabalin (LYRICA) 75 mg capsule TAKE 1 CAPSULE BY MOUTH TWICE DAILY DISCONTINUE GABAPENTIN 01/08/2021 11/05/2021 influenza high dose vaccine 2019-, PF,, 65 yrs+, (FLUZONE HIGHDOSE QUAD 20-21 PF) IM injection-syringe seasonal 07/23/2020 11/05/2021 added in this encounter Care Teams Desk Officer Relationship Specialty Start Date End Date Radha Mckeon MD [address] [place] [address] PCP - General 04/03/20 documented as of this encounter
--- OUTSIDE RECORDS SUMMARY | 2024-07-24 17:33 | XMS_ITS | Encounter Summary ---
Author Organization [facility] Address [address] [place] [address] Care Team Providers Care Physical Education Aide Name Role Phone Radha Mckeon MD Primary Care Provider [phone] Encounter Details Date Type Department Care Team (Late st Contact Info) Description 03/19/2023 Lab Requisition [facility] Pathology & Laboratory Medicine - [facility] [address], [place] [address] Outr Resulting Lab, Provider Social History Tobacco [...] Procedure Name Priority Date/Time Associated Diagnosis Comments DOUBLE STRANDED DNA ANTIBODY, IGG Routine 03/18/2023 15:13 EDT RHEUMATOID FACTOR Routine 03/18/2023 15: 13 EDT documented in this encounter Results * RHEUMATOID FACTOR (03/18/2023 15:13 EDT) Rheumatoid Factor <8.6 <12.0 IU/mL 03/19/2023 18:51 EDT [facility] Blood VENOUS BLOOD / Unknown 03/18/2023 15:13 EDT 03/19/2023 18:27 EDT Provider Outr Resulting Lab CHEMISTRY & BLOOD GAS ORDERABLES Performing Organization Address [facility] de Phone Number [facility] [address] [place] [address] * (ABNORMAL) ANTI DNA (DOUBLE STRANDED) (03/18/2023 15:13 EDT) Pathologist [facility] Anti-DNA (Double Stranded) 30.1(H) <30.0 IU/mL 03/23/2023 13:46 EDT [facility] Comment: Borderline Positive - It is recommended that borderline positive samples be recollected and retested for confirmation. ??It is important to test patients on a regular basis to monitor changes in the level of dsDNA autoantibodies. ? Negative: ??<30.0 IU/mL ? Borderline Positive: ??30.0 - 75.0 IU/mL ? Positive: ??>75.0 IU/mL Results were obtained with the [employer] QUANTA Lite dsDNA SC LEANNE assay on the [employer]. Blood VENOUS BLOOD / Unknown 03/18/2023 15:13 EDT 03/19/2023 18:27 EDT Provider Outr Resulting Lab IMMUNOLOGY A ND SEROLOGY ORDERABLES Performing Organization Address [facility] Co de Phone Number [facility] [address] [place] [address] documented in this encounter Visit Diagnoses Not on filedocumented in this encounter Care Teams Physical Education Aide Relationship Specialty Start Date End Date Radha Mckeon MD [address] [place] [address] PCP - General 04/03/20 documented as of this encounter
--- OUTSIDE RECORDS SUMMARY | 2024-07-24 17:33 | XMS_ITS | Encounter Summary ---
Author Organization [facility] [place] [address] Care Team Providers Care Corporate Coordinator Name Role Phone Radha Mckeon MD Primary Care Provider [phone] Reason for Visit * Reason Comments Backache Encounter Details Date Type Department Care Team (Late st Contact Info) Description 03/11/2011 10:00 AM EDT [place] [address] [facility] [place] [address] Lumbar radiculopathy (Primary Dx) Discharge Disposition: Home [...] Sign Reading Time Taken Comments Blood Pressure 119/77 03/11/2011 10:29 AM EDT Pulse 57 03/11/2011 10:29 AM EDT Temperature - - Respiratory Rate - - Oxygen Saturation 97% 03/11/2011 10:29 AM EDT Inhaled Oxygen Concentration - - Weight - - Height - - Body Mass Index - - documented in this encounter Progress Notes * Saurabh Royal MD - 03/11/2011 11:35 AM EDT Mr. Machado presents today to discuss options. 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 He does try to keep his opioid use to minimum. 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 His mood is good. His activity level is severely restricted. He is here to discuss whether or not there are new options for him and they are not. We discussed again, the option of spinal cord stimulation, and we discussed the use of medical marijuana in the [facility], and what the State requirements are, etc. He is not ready to try this yet either because he is afraid of becoming impaired and is responsible for the care of his grandchildren. I wish I had something new to offer him, but I do not. He is tolerating these medications without difficulty. He is a nice man. I recommend that he continue using what he is using. We spent 25 minutes together today, 15-minutes of which were spent with my advising him regarding the system for medical marijuana in the [facility], and his use of opioids, etc. documented in this encounter Plan of Treatment Upcoming Encounters Date Type Department Care Team (Late st Contact Info) Description 08/18/2024 11:00 AM EDT Hospital Encounter Non-[place] [address] Arrived 02/22/2025 1:30 PM EDT Appointment Hematology [place] [address] 02/22/2025 2:30 PM EDT Office Visit Hematology [place] [address] [facility] [address] [place] [address] [facility] [address] [place] [address] documented as of this encounter Visit Diagnoses Diagnosis Lumbar radiculopathy- Primary Thoracic or lumbosacral neuritis or radiculitis, unspecified documented in this encounter Care Teams Corporate Coordinator Relationship Specialty Start Date End Date Radha Mckeon MD [address] [place] [address] PCP - General 09/23/10 documented as of this encounter
--- OUTSIDE RECORDS SUMMARY | 2024-07-24 17:33 | XMS_ITS | Encounter Summary ---
Author Organization [facility] Address [address] [place] [address] Care Team Providers Care Forestry And Wildlife Manager Name Role Phone Radha Mckeon MD Primary Care Provider [phone] Reason for Visit * Reason Onset Date Comments Results 07/04/2020 Encounter Details Date Type Department Care Team (Late st Contact Info) Description 07/04/2020 Telephone [facility] Adult Hematology & Oncology [address] [place] [address] Kenisha Woods, KOSTAS [address] [facility] [address] [place] [address] Results Social History Tobacco Use Types Packs/Day [...] encounter Miscellaneous Notes * Telephone Encounter - Tara Cespedes RN - 07/04/2020 0240 EDT Images from the original note were not included. Per DVT r/o resport; Kenisha Woods MBBS P [facility] Adult Hem/Onc Nurse Pool ?? Please let the patient know that ultrasound is negative for any blood clots. KOSTAS Bryan 07/04/20 16:15 Left message for pt to call back. Per message from Regine Poole [employer] in [place] result, she spoke with pt and relayed negative results. documented in this encounter Plan of Treatment Not on file documented as of this encounter Visit Diagnoses Not on filedocumented in this encounter Care Teams Forestry And Wildlife Manager Relationship Specialty Start Date End Date Radha Mckeon MD [address] [place] [address] PCP - General 04/03/20 documented as of this encounter
--- OUTSIDE RECORDS SUMMARY | 2024-07-24 17:33 | XMS_ITS | Encounter Summary ---
[place] [address] Care Team Providers Care Juvenile Court Judge Name Role Phone Unavailable Primary Care Provider Unavailabl e Encounter Details Date Type Department Care Team (Late st Contact Info) Description 09/02/2010 12:30 PM EDT Follow-[place] [phone] Saurabh Royal MD [facility] [place] [place] [address] Social History Tobacco Use Types Packs/Day Years [...] AM EDT Hospital Encounter Non-[place] [phone] Arrived 02/22/2025 1:30 PM EDT Appointment Hematology [place] [phone] 02/22/2025 2:30 PM EDT Office Visit Hematology [place] [address] Ellis Childers MD [facility] [place] [address] Felicita Landa APRN [facility] [place] [address] documented as of this encounter Visit Diagnoses Not on filedocumented in this encounter
--- OUTSIDE RECORDS SUMMARY | 2024-07-24 17:33 | XMS_ITS | Encounter Summary ---
Author Organization [facility] [place] [address] Care Team Providers Care Commercial Loan Reviewer Name Role Phone Radha Mckeon MD Primary Care Provider [phone] Encounter Details Date Type Department Care Team (Late st Contact Info) Description 01/14/2010 Orders [place] [phone] Ganga Mi MD [facility] [place] [address] Social History Tobacco Use Types Packs/Day Years Used Date Smoking Tobacco: Never Assessed Overall Financial Resource Strain (CARDIA) Answe r [...] in a half-way (including now)? No 04/01/2022 IPV Inpatient Questions [...] AM EDT Hospital Encounter Non-Invasive Cardiology Lab [place] [address] Arrived 02/22/2025 1:30 PM EDT Appointment Hematology and Oncology at [place] [address] 02/22/2025 2:30 PM EDT Office Visit Hematology and Oncology at [place] [address] Ellis Childers MD [facility] [place] [address] Felicita Landa APRN [facility] [place] [address] documented as of this encounter Procedures Procedure Name Priority Date/Time Associated Diagnosis Comments SURGICAL PATHOLOGY REPORT Routine 01/14/2010 9:53 AM EDT documented in this encounter Results * Surgical Pathology Report (01/14/2010 9:53 AM EDT) Surgical Pathology Report [id number] ? Location: 3T; 0329; A The signing pathologist has (i) examined the relevant preparation(s) for the specimen(s) and (ii) rendered or confirmed the diagnosis(es). . ?Pathology Surgical Pathology Final Report Clinical Information Specimen Submitted: A - Bone and tissue right knee Clinical History: Right knee OA Clinical Diagnosis: Right knee OA Gross Description Labeled/Fixativ e: ? Bone and tissue, right knee; fresh. Quantity/Size: ?Multiple, 9.0 x 8.0 x 4.0 cm in aggregate. Tissue Description: ?? Fragments of yellow-white, hard, irregular bone, ?cartilage and soft tissue. ??Eburnation: ? Identified. ??Osteophytes: ?Identified. Sections/Proces sing: ??No sections are submitted. ??aje/EJR Diagnosis Articular bone and soft tissue consistent with osteoarthritis, right knee. ?? Gross surgical pathology examination. CR-0 01/15/10 AJE 01/15/10 Verified by: ? Colin Arnold MD ?Pathologist ?(Electronic Signature) The attending pathologist whose signature appears on this report has reviewed all diagnostic slides and has edited the gross and/or microscopic portion of the report in rendering the final pathologic diagnosis. [facility] 01/14/2010 9:53 AM EDT Ganga Mi MD PATHOLOGY/CYTOLOGY O RDERABLES Performing Organization Address City/State/[facility] Co de Phone Number [facility] documented in this encounter Visit Diagnoses Not on filedocumented in this encounter Care Teams Commercial Loan Reviewer Relationship Specialty Start Date End Date Radha Mckeon MD [address] [place] [address] PCP - General 09/23/10 documented as of this encounter
--- OUTSIDE RECORDS SUMMARY | 2024-07-24 17:33 | XMS_ITS | Encounter Summary ---
Author Organization [facility] [place] [address] Care Team Providers Care Gypsum Calciner Name Role Phone Radha Mckeon MD Primary Care Provider [phone] Encounter Details Date Type Department Care Team (Late st Contact Info) Description 01/13/2011 12:40 PM EDT Follow-Up Cardiology at [address] [phone] Diogo Robb PA [facility] [place] [address] Discharge Disposition: Home Social History Tobacco Use [...] AM EDT Hospital Encounter Non-Invasive [place] [phone] Arrived 02/22/2025 1:30 PM EDT Appointment Hematology [place] [address] 02/22/2025 2:30 PM EDT Office Visit Hematology and Oncology at [facility] [place] [phone] Ellis Childers MD [facility] DR HEMATOLOGY [place] [address] Felicita Landa APRN [facility] [place] [address] documented as of this encounter Procedures Procedure Name Priority Date/Time Associated Diagnosis Comments AVIATION TECHNICIAN SCAN 02/26/2011 3:06 PM EDT CREATININE Routine 01/13/2011 12:24 PM EDT BUN Routine 01/13/2011 12:24 PM EDT ELECTROLYTES PANEL Routine 01/13/2011 12 :24 PM EDT documented in this encounter Results * SCAN DOC: AVIATION TECHNICIAN (02/26/2011 3:06 PM EDT) Anatomical Region Laterality Modality Other Narrative 02/26/2011 3:08 PM EDT A scan was deleted from the Results section by Juana Robb [[id number]] on 03/12/2011 at ??7:53 PM (File: [id number]) Scanning Provider MEDIA MGR SCAN EXT O RDR/RSLT * CREATININE, SERUM (01/13/2011 12:24 PM EDT) Creatinine 0.89 0.80 - 1.50 mg/dL [facility] Est Glomerular Filtration Rate >60 >=60 [facility] Comment: The National Kidney Disease Education Program (NKDEP) has recommended all laboratories report estimated GFR (eGFR) along with plasma creatinine measurements to assist you with recognition of early kidney disease. Caveats: ??Plasma creatinine should be at steady-state (unchanged within the past week). ??Patient age > = 18 years, and for Americans multiply eGFR by 1.2. At present, NKDEP does NOT recommend using [...] disease. References: http://nkdep.nih.gov/resources/NKDEP_Suggestn4Labs_0606_508.pdf http://www.kidney.org/professionals/kls/pdf/faq_gfr.pdf Blood specimen (specimen) 01/13/2011 12:24 PM EDT 01/13/2011 12:42 PM EDT Diogo CANDELARIO CHEMISTRY ORDERABLES Performing Organization Address [facility] de Phone Number [facility] * BUN (01/13/2011 12:24 PM EDT) Blood Urea Nitrogen 16 10 - 20 mg/dL [facility] Blood specimen (specimen) 01/13/2011 12:24 PM EDT 01/13/2011 12:42 PM EDT Diogo CANDELARIO CHEMISTRY ORDERABLES Performing Organization Address [facility] Co de Phone Number [facility] * ELECTROLYTE PANEL (01/13/2011 12:24 PM EDT) Sodium 140 135 - 145 mmol/L [facility] MILLENNIUM Potassium 4.2 3.5 - 5.0 mmol/L [facility] Comment: Please note: ??Patients with WBC >100,000 may have falsely elevated Potassium levels. ??For accurate Potassium quantification in these patients send serum separator tube (gold top) for subsequent determinations. ??Contact the Clinical Chemistry Laboratory if there are any questions. Chloride 103 98 - 107 mmol/L [facility] MILLENNIUM Carbon Dioxide 31 22 - 31 mmol/L [facility]EN[facility] Anion Gap 6 5 - 15 mmol/L [facility] Blood specimen (specimen) 01/13/2011 12:24 PM EDT 01/13/2011 12:42 PM EDT Diogo CANDELARIO CHEMISTRY ORDERABLES HELEN ROTH documented in this encounter Visit Diagnoses Not on filedocumented in this encounter Care Teams Gypsum Calciner Relationship Specialty Start Date End Date Radha Mckeon MD [address] [place] [address] PCP - General 09/23/10 documented as of this encounter
--- OUTSIDE RECORDS SUMMARY | 2024-07-24 17:33 | XMS_ITS | Encounter Summary ---
Author Organization [facility] [place] [address] [place] [address] Care Team Providers Care Special Library Librarian Name Role Phone Radha Mckeon MD Primary Care Provider [phone] Reason for Visit * Reason Comments Follow-up 3 months Encounter Details Date Type Department Care Team (Late st Contact Info) Description 07/04/2020 14:30 EDT Office Visit [facility] Adult Hematology & Oncology [facility] [place] [address] Kenisha Woods, KOSTAS [address] [facility] [address] [place] [address] Thrombopenia (HCC-CMS) (Primary Dx); Swelling of left lower extremity Social History Tobacco Use Types [...] 14:39 EDT documented as of this encounter Last Filed Vital Signs Vital Sign Reading Time Taken Comments Blood Pressure 144/66 07/04/2020 1440 EDT Pulse 55 07/04/2020 1440 EDT Temperature 35.6 ??C (96.1 ??F) 07/04/2020 1440 EDT Respiratory Rate - - Oxygen Saturation 98% 07/04/2020 1440 EDT Inhaled Oxygen Concentration - - Weight 79.4 kg (175 lb) 07/04/2020 1440 EDT Height - - Body Mass Index 24.41 04/03/2020 1404 EDT documented in this encounter [...] of this encounter Progress Notes * Kenisha Woods, KOSTAS - 07/04/2020 1430 EDT Hematology Follow-up Note Date of Service: 07/04/2020 Hematology History: Thrombocytopenia: -12/22/2018: Platelet count: 79 -07/25/2019: Platelet count: 83 -09/13/2019: Platelet count: 83, ultrasound: Small accessory spleen -10/06/2019: HIV testing: Negative Hepatitis B, C work-up: Negative Vitamin B12 level: 365, folate level:>20 -04/03/2020: Platelet count: 128 Subjective: Malik is being seen in follow-up today. Today, he mentions that he has been having pain in left leg since Wednesday. He also felt a tense cord in left lower extremity. Currently, pain is getting better. He denies weight or appetite changes, chest [...] as directed every 90 days. Taking ??? cephALEXin (KEFLEX) 500 mg capsule Take 500 mg by mouth. Taking ??? diclofenac sodium 1 % gel Apply topically daily as needed. Taking ??? ELIQUIS 5 mg tablet Take 5 mg by mouth 2 times daily. 0 Not Taking ??? fluticasone propionate (FLONASE) 50 mcg/actuation nasal spray Instill 1 [place] into both nostrils 2 times daily. Taking ??? gabapentin (NEURONTIN) 300 mg capsule Not Taking ??? gabapentin (NEURONTIN) 600 mg tablet 3 times daily. Taking ??? lamoTRIgine (LAMICTAL) 25 mg tablet Take 50 mg by mouth 2 times daily. Taking ??? levothyroxine (SYNTHROID) 100 mcg tablet Take 100 mcg by mouth daily. 0 Taking ??? lidocaine 5 % (LIDODERM) 5 % patch Place 3 Patches onto the skin daily. Not Taking ??? methocarbamoL (ROBAXIN) 750 mg tablet Take 750 mg by mouth every 8 hours as needed for Muscle Spasms. Taking ??? metoprolol XL (TOPROL-XL) 100 mg tablet Take 150 mg by mouth daily. 0 Taking ??? multivitamin (THERAGRAN) per tablet Take 1 Tab by mouth daily. Taking ??? Multivits,Ca,Ztyrzyug-Wpdp-HM 9 mg iron-400 mcg tablet Take 1 [...] by mouth 2 times daily. Taking ??? QUEtiapine (SEROQUEL) 25 mg tablet [...] SUMAtriptan (IMITREX) 20 mg/actuation nasal spray 1 [place] by nasal route PRE-OP Q 2 HOURS. Taking ??? tamsulosin (FLOMAX) 0.4 mg capsule [...] Taking ??? XARELTO 20 mg tablet tablet Not Taking No current facility-administered medications for this visit. Objective: VS: Patient Vitals for the past 24 hrs: BP Temp Pulse SpO2 Weight 07/04/20 1440 (!) 144/66 35.6 ??C (96.1 ??F) 55 98 % 79.4 kg (175 lb) Physical Exam: General appearance: Awake, alert, oriented x3, NAD. Skin: Skin color, tempature, turgor normal, no rashes on skin Head: Normocephalic, without obvious abnormality Eyes: sclerae anicteric Neck: supple, symmetrical Lungs: clear to auscultation bilaterally Heart: regular rate and rhythm Abdomen: soft, non-tender; bowel sounds normal, no hepatosplenomegaly Extremities: extremities warm, atraumatic, discoloration noted in bilateral lower extremities. Tense cord palpable in left lower extremity. Data Review: Labs: Results for orders placed or performed in visit on 07/04/20 CBC W/PLT & DIFF,POINT OF CARE - [facility] Result Value Ref Range Gran # 4.0 1.7 - 7.0 10e3/uL BASO # - [facility] 0.01 0.0 - 0.3 10e3/uL BASO % - [facility] 0 0 - 2 % EOS # - [facility] 0.10 0.05 - 0.5 10e3/uL EOS % - [facility] 2 0 - 5 % GRAN % - [facility] 66.4 40 - 80 % HEMATOCRIT - [facility] 42.4 36.0 - 52.0 % HEMOGLOBIN - [facility] 14.5 13.7 - 17.5 g/dl LYMPH # - [facility] 1.1 0.9 - 2.9 10e3/ul LYMPH% - [facility] 17.6 (L) 20 - 40 % MEAN CORPUSCULAR HGB - [facility] 32.2 26 - 34 pg MEAN CORPUSCULAR HGB CONC - [facility] 34.2 31 - 36 g/dL MEAN CELL VOLUME - [facility] 94.0 77 - 100 fl MONO # - [facility] 0.9 0.3 - 0.9 10e3/uL MONO% - [facility] 14.1 (H) 0 - 12 % PLATELET COUNT 89 (L) 150 - 400 10e3/ul RED BLOOD COUNT - [facility] 4.51 4.3 - 5.7 10e6/ul RED CELL DISTRI WIDTH - [facility] 12.0 11.8 - 15.6 % WHITE BLOOD COUNT - [facility] 6.0 3.5 - 10.5 10e3/ul Assessment: 69-year-old male [...] Repeat CBC from today confirms low-grade thrombocytopenia with platelet count at 80,000. I mentioned to him that he would be monitored with CBC checks every 3 to 6 months. We would not treat ITP until the platelet count is less than 20,000- 30,000. I also briefly discussed treatment options for ITP including steroids, rituximab, IVIG, thrombopoietin receptor agonists. Pain in left lower extremity: Reasonable to rule out superficial venous thrombosis/DVT with ultrasound. Ultrasound ordered. Plan: #1. Patient has low-grade ITP. #2. Treatment is required for ITP if the platelet count is less than 20,000 #3. Ordered ultrasound to rule out DVT in left lower extremity. Follow-up: 3 months with CBC Other Orders Placed This Visit Procedures ? ? CBC W/PLT & DIFF,POINT OF CARE - [facility] ??? US LOWER VENOUS DUPLEX Kenisha Woods MD Clinical Practice Physician Hematology/ Medical Oncology [facility] Ph no: [phone] Addendum: Ultrasound of left lower extremity came back negative for superficial venous thrombosis/deep venous thrombosis. Results communicated to the patient. * Kwabena Cordero MA - 07/04/2020 1430 EDT Suspicion of Abuse: no - If yes, please document evidence: - Assessed on: 07/04/20 14:40 - Assessed by: KWABENA CORDERO MA Patient has only been to [facility] recently Procedures: - Venipuncture Performed by: KWABENA CORDERO MA Site Collected: Right Antecubital Space Volume Withdrawn: STT: 8.5ml and Lavender Top: 3.0ml Patient Response:Patient tolerated venipuncture well and Butterfly used Number of attempts: 1 Collected on: 07/04/20 14:54 Ordering Provider:Kenisha Woods MD documented in this encounter Miscellaneous Notes * Result Encounter Note - Kenisha Woods MBBS - 07/04/2020 1430 EDT Please let the patient know that ultrasound is negative for any blood clots. KOSTAS Bryan * Result Encounter Note - Tara Cespedes RN - 07/04/2020 1430 EDT Left message for pt to call back. See 07/04/20 TE for details. * Result Encounter Note - Kwabena Cordero MA - 07/04/2020 1430 EDT Spoke with patient and relayed negative results documented in this encounter Plan of Treatment Not on file documented as of this encounter Procedures Procedure Name Priority Date/Time Associated Diagnosis Comments US EXTREMITY 07/04/2020 16:12 EDT CBC W/PLT & DIFF,POINT OF CARE - [facility] Routine 07/04/2020 14:52 EDT Thrombopenia ([facility]) documented in this encounter Results * US EXTREMITY (07/04/2020 16:12 EDT) Anatomical Region Laterality Modality Other 07/04/2020 16:1 2 EDT Narrative 07/04/2020 16:12 EDT ? EXAM: ULTRASOUND/DOPPLER VEIN LOWER EXT. ??EX. D/ (1606) ? CLINICAL INFORMATION: ? M79.89 SWELLING OF LEFT LOWER EXTREMITY ? PROCEDURE INFORMATION: ? Exam: US Duplex Left Lower Extremity Veins, Limited ? Exam date and time: 07/04/2020 3:22 PM ? Age: 70 years old ? Clinical indication: Pain; Leg, lower; Left; Additional info: ? M79.89 swelling of left lower extremity ? TECHNIQUE: ? Imaging protocol: Real-time Duplex ultrasound of the Left Lower ? Extremity with 2-D arceo scale, color Doppler flow and spectral ? waveform analysis with image documentation. Limited exam focused ? on the left lower extremity veins. ? COMPARISON: ? No relevant prior studies available. ? FINDINGS: ? Left deep veins: Unremarkable. The common femoral, femoral, ? proximal profunda femoral and popliteal veins are patent without ? thrombus. Normal Doppler waveforms. Normal compressibility ? and/or augmentation response. ? Left superficial veins: Unremarkable. Saphenofemoral junction is ? patent without thrombus. ? Soft tissues: Unremarkable. ? IMPRESSION: ? No evidence of deep vein thrombosis. ? REPORT SIGNED IN OTHER VENDOR SYSTEM 07/04/2020 ?Reported By: Artie Perez MD ? CC: ? Transcribed Date/Time: 07/04/2020 (1612) ? Soldering Inspector: HIS.VRAD ? Printed Date/Time: 07/04/2020 (1612) ? PAGE 1 ? Signed Report ? Procedure Note Artie Perez MD - 07/04/2020 EXAM: ULTRASOUND/DOPPLER VEIN LOWER EXT. EX. D/ (1606) CLINICAL INFORMATION: M79.89 SWELLING OF LEFT LOWER EXTREMITY PROCEDURE INFORMATION: Exam: US Duplex Left Lower Extremity Veins, Limited Exam date and time: 07/04/2020 3:22 PM Age: 70 years old Clinical indication: Pain; Leg, lower; Left; Additional info: M79.89 swelling of left lower extremity TECHNIQUE: Imaging protocol: Real-time Duplex ultrasound of the Left Lower Extremity with 2-D arceo scale, color Doppler flow and spectral waveform analysis with image documentation. Limited exam focused on the left lower extremity veins. COMPARISON: No relevant prior studies available. FINDINGS: Left deep veins: Unremarkable. The common femoral, femoral, proximal profunda femoral and popliteal veins are patent without thrombus. Normal Doppler waveforms. Normal compressibility and/or augmentation response. Left superficial veins: Unremarkable. Saphenofemoral junction is patent without thrombus. Soft tissues: Unremarkable. IMPRESSION: No evidence of deep vein thrombosis. REPORT SIGNED IN OTHER VENDOR SYSTEM 07/04/2020 Reported By: Artie Perez MD CC: Transcribed Date/Time: 07/04/2020 (1611) Soldering Inspector: Printed Date/Time: 07/04/2020 (1611) PAGE 1 Signed Report Kenisha KENYON IMG US ORDERABLES * (ABNORMAL) CBC W/PLT & DIFF,POINT OF CARE - [facility] (07/04/2020 14:52 EDT) Gran # 4.0 1.7 - 7.0 10e3/uL 07/04/2020 14:56 [facility] BASO # - [facility] 0.01 0.0 - 0.3 10e3/uL 07/04/2020 14:56 [facility] BASO % - [facility] 0 0 - 2 % 07/04/2020 14:56 [facility] EOS # - [facility] 0.10 0.05 - 0.5 10e3/uL 07/04/2020 14:56 [facility] EOS % - [facility] 2 0 - 5 % 07/04/2020 14:56 [facility] GRAN % - [facility] 66.4 40 - 80 % 07/04/2020 14:56 [facility] HEMATOCRIT - [facility] 42.4 36.0 - 52.0 % 07/04/2020 14:56 [facility] HEMOGLOBIN - [facility] 14.5 13.7 - 17.5 g/dl 07/04/2020 14:56 [facility] LYMPH # - [facility] 1.1 0.9 - 2.9 10e3/ul 07/04/2020 14:56 [facility] LYMPH% - [facility] 17.6(L) 20 - 40 % 07/04/2020 14:56 [facility] MEAN CORPUSCULAR HGB - [facility] 32.2 26 - 34 pg 07/04/2020 14:56 [facility] MEAN CORPUSCULAR HGB CONC - [facility] 34.2 31 - 36 g/dL 07/04/2020 14:56 [facility] MEAN CELL VOLUME - [facility] 94.0 77 - 100 fl 07/04/2020 14:56 [facility] MONO # - [facility] 0.9 0.3 - 0.9 10e3/uL 07/04/2020 14:56 [facility] MONO% - [facility] 14.1(H) 0 - 12 % 07/04/2020 14:56 [facility] PLATELET COUNT 89(L) 150 - 400 10e3/ul 07/04/2020 14:56 [facility] RED BLOOD COUNT - [facility] 4.51 4.3 - 5.7 10e6/ul 07/04/2020 14:56 [facility] RED CELL DISTRI WIDTH - [facility] 12.0 11.8 - 15.6 % 07/04/2020 14:56 [facility] WHITE BLOOD COUNT - [facility] 6.0 3.5 - 10.5 10e3/ul 07/04/2020 14:56 [facility] 07/04/2020 14:5 2 EDT 07/04/2020 14:52 EDT Kenisha KENYON CHEMISTRY & BLOOD GAS ORDERABLES [facility] [address] [place] [address] documented in this encounter Visit Diagnoses Diagnosis Thrombopenia ([facility])- Primary Thrombocytopenia, unspecified Swelling of left lower extremity Swelling of limb documented in this encounter Historical Medications * This list may reflect changes made after this encounter. Medication Sig Dispensed Refills Start Date End Date cephALEXin (KEFLEX) 500 mg capsule Take 500 mg by mouth. gabapentin (NEURONTIN) 300 mg capsule 04/24/2020 gabapentin (NEURONTIN) 600 mg tablet 3 times daily. 07/02/2020 tamsulosin (FLOMAX) 0.4 mg capsule Take 1 Cap by mouth daily. 05/20/2020 fluticasone propionate (FLONASE) 50 mcg/actuation nasal spray Instill 1 [place] into both nostrils 2 times daily. 02/27/2020 lamoTRIgine (LAMICTAL) 25 mg tablet Take 50 mg by mouth 2 times daily. 10/10/2019 lidocaine 5 % (LIDODERM) 5 % patch Place 3 Patches onto the skin daily. 11/17/2019 methocarbamoL (ROBAXIN) 750 mg tablet Take 750 mg by mouth every 8 hours as needed for Muscle Spasms. 11/17/2019 polyethylene glycol 3350 (MIRALAX) 17 gram packet Take 17 g by mouth 2 times daily. 11/17/2019 senna-docusate (PERICOLACE) 8.6-50 mg per tablet Take 2 Tabs by mouth 2 times daily. 11/17/2019 warfarin (COUMADIN) 1 mg tablet Indications: ALTERNATING WITH 2 MG 02/26/2020 XARELTO 20 mg tablet tablet 03/26/2020 Multivits,Ca,Minerals- Iron-FA 9 mg iron-400 mcg tablet Take 1 Tab by mouth daily. 11/18/2019 11/05/2021 added in this encounter Care Teams Special Library Librarian Relationship Specialty Start Date End Date Radha Mckeon MD [address] [place] [address] PCP - General 04/03/20 documented as of this encounter
--- OUTSIDE RECORDS SUMMARY | 2024-07-24 17:33 | XMS_ITS | Referral Summary ---
Author Organization [facility] Address [address] [place] [address] Care Team Providers Care Horticulture Teacher Name Role Phone Radha Mckeon MD Primary Care Provider [phone] Allergies Active Allergy Reactions Criticality Noted Date Comments Amitriptyline Palpitations,Other ( See Comments) Medium 01/23/2017 Adverse drug effect Other reaction(s): heart races, Other (See Comment) Atorvastatin Other (See Comments) 01/23/2017 Adverse effect caused liver enzyme abnormalitiies Other reaction(s): Other (See Comment) Flecainide Other (See Comments) 01/23/2017 Adverse effect caused DC and QRS prolongation Other reaction(s): Other (See [...] SUMAtriptan (IMITREX) 20 mg/actuation nasal spray 1 [place] by nasal route PRE-OP Q 2 HOURS. [...] (FLONASE) 50 mcg/actuation nasal spray Instill 1 [place] into both nostrils 2 times daily. 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 --Currently on oxycodone. --Lumbar radiculopathy. Altered mental status 01/24/2017 History of atrial fibrillation 01/24/2017 History of ETOH abuse 01/24/2017 Hypothyroidism 01/24/2017 Lightheadedness 12/24/2016 Adverse drug effect 11/24/2016 Overview: --Amitriptyline (palpitations), Lipitor (liver enzyme abnormalities), flecainide (DC/QRS prolongation noted 12/2007). History of loop recorder [...] IMPLANTS USED: All implants were from the [employer] total knee system. 1. A size 4 press-fit cruciate retaining porous femoral component. 2. A size 4 press-fit porous rotating platform tibial tray. 3. A size 4 x 10-mm rotating platform polyethylene. 4. A 35-mm round patella. 5. Half batch of quick set cement. ILR Paroxysmal atrial fibrillation ([facility]) 011 Overview: --Recurrent AF --S/P cardioversions x [...] Polysaccharide (PPSV23) Vaccine (PNEUMOVAX-23) =>2YO SQ/IM 12/10/2007 Social History Tobacco Use Types Packs/Day Years [...] 12:31 EDT Sexual Orientation Not on file Last Filed [...] Body Mass Index 24.55 04/03/2020 1404 EDT Functional Status Functional Status Response Date of [...] concentrating, remembering, or making decisions? No 04/03/2020 Plan of Treatment Not on file Procedures Procedure Name Priority Date/Time Associated Diagnosis Comments HEPATITIS C AB W/REFLEX - [facility] Routine 10/04/2019 15:26 EST Thrombocytopenia (HCC-CMS) from Last 3 Months or Most Recently Relevant to Health Maintenance Results * HEPATITIS C AB W/REFLEX - [facility] (10/04/2019 15:26 EST) HEPATITIS C AB W/REFLEX - [facility] Negative 10/04/2019 17:00 EST [facility] Comment:Expected Values: Neg ative. 10/04/2019 15:2 6 EST 10/04/2019 15:26 EST Narrative [facility] - 10/04/2019 17:00 EST Enter/Edit CPT and ICD codes? N Kenisha ATWOODBS CHEMISTRY & BLOOD GAS ORDERABLES [facility] from Last 3 Months or Most Recently Relevant to Health Maintenance Care Teams Horticulture Teacher Relationship Specialty Start Date End Date Radha Mckeon MD [address] [place] [address] PCP - General 04/03/20
--- OUTSIDE RECORDS SUMMARY | 2024-07-24 17:33 | XMS_ITS | Encounter Summary ---
Author Organization [facility] Address [address] [place] [address] Care Team Providers Care Assembler Fitter Name Role Phone Radha Mckeon MD Primary Care Provider [phone] Reason for Visit * Reason Onset Date Comments Appointment Related 06/05/2022 Encounter Details Date Type Department Care Team (Late st Contact Info) Description 06/05/2022 Telephone [facility] Adult Hematology & Oncology [address] [place] [address] Kenisha Woods, KOSTAS [address] [facility] [address] [place] [address] Appointment Related Social History Tobacco Use Types Packs/Day Years Used Date Smoking Tobacco: Former Cigarettes 2.5 16 1 7 1982 Smokeless Tobacco: Never Alcohol Use Standard [...] encounter Miscellaneous Notes * Telephone Encounter - EladioJenifer liz - 06/05/2022 1637 EDT Patient called was sorry he missed his appointment in May. Because of his surgery at [facility] he has been seeing a Hem doctor at [facility]. Patient was not sure what he should do he has a lot going on at [facility] so he is going to continue to see the Hem doctor there. He wants you to know that this change has nothing to do with the care he was getting here. documented in this encounter Plan of Treatment Not on file documented as of this encounter Visit Diagnoses Not on filedocumented in this encounter Care Teams Assembler Fitter Relationship Specialty Start Date End Date Radha Mckeon MD [address] [place] [address] PCP - General 04/03/20 documented as of this encounter
--- OUTSIDE RECORDS SUMMARY | 2024-07-24 17:33 | XMS_ITS | Encounter Summary ---
Author Organization [facility] Address [address] [place] [address] Care Team Providers Care Door To Door Sales Representative Name Role Phone Radha Mckeon MD Primary Care Provider [phone] Encounter Details Date Type Department Care Team (Late st Contact Info) Description 03/12/2022 Lab Requisition [facility] Pathology & Laboratory Medicine - [address] [address] Outr Resulting Lab, Provider Social History Tobacco [...] Priority Date/Time Associated Diagnosis Comments ZZCOVID-19 TEST [facility] PCR Today 03/12/2022 13:15 EDT COVID-19 TESTING Routine 03/12/2022 13:1 5 EDT documented in this encounter Results * COVID-19 TEST [facility] PCR (03/12/2022 13:15 EDT) Swab 03/12/2022 13:1 5 EDT 03/12/2022 21:37 EDT Provider Outr Resulting Lab MICROBIOLOGY - GENERAL ORDERABLES Performing Organization Address City/[facility] Co de Phone Number [facility] [address] [place] [address] * COVID-19 TESTING (03/12/2022 13:15 EDT) COVID-19 rt-PCR Result Negative Negative 03/13/2022 12:[address] [facility] Comment: This test has [...] performed using the ayan SARS-CoV-2 assay ([employer] on the Ayan 6800 System Performing Lab Ayan 6800 [facility] 03/13/2022 12:[address] [facility] Swab 03/12/2022 13:1 5 EDT 03/12/2022 21:37 EDT Provider Outr Resulting Lab MICROBIOLOGY - GENERAL ORDERABLES Performing Organization Address City/[facility]/ZIP Co de Phone Number [facility] [address] [place] [address] documented in this encounter Visit Diagnoses Not on filedocumented in this encounter Care Teams Door To Door Sales Representative Relationship Specialty Start Date End Date Radha Mckeon MD [address] [place] [address] PCP - General 04/03/20 documented as of this encounter
--- OUTSIDE RECORDS SUMMARY | 2024-07-24 17:33 | XMS_ITS | Encounter Summary ---
[place] [address] Care Team Providers Care Electronics Detail Draftsperson Name Role Phone Radha Mckeon MD Primary Care Provider [phone] Encounter Details Date Type Department Care Team (Late st Contact Info) Description 11/13/2010 3:30 PM EST Office [place] [phone] Nichole Coronel APRN [facility] [place] [address] Discharge Disposition: Home Social History Tobacco Use [...] EDT Hospital Encounter Non-Invasive [place] [address] Arrived 02/22/2025 1:30 PM EDT Appointment Hematology [place] [address] 02/22/2025 2:30 PM EDT Office Visit Hematology [place] [address] Ellis Childers MD [facility] [address] [place] [address] Felicita Landa APRN [facility] [address] [place] [address] documented as of this encounter Visit Diagnoses Not on filedocumented in this encounter Care Teams Electronics Detail Draftsperson Relationship Specialty Start Date End Date Radha Mckeon MD [address] [place] [address] PCP - General 09/23/10 documented as of this encounter
--- OUTSIDE RECORDS SUMMARY | 2024-07-24 17:33 | XMS_ITS | Encounter Summary ---
Author Organization [facility] [place] [address] Care Team Providers Care Junk Dealer Name Role Phone Radha Mckeon MD Primary Care Provider [phone] Reason for Visit * Reason Comments Atrial Fibrillation Encounter Details Date Type Department Care Team (Late st Contact Info) Description 08/13/2011 1:10 PM EDT Follow-Up Cardiology at [address] [address] Diogo Robb PA [facility] [place] [address] A-fib (Primary Dx); Atrial fibrillation; Chronic back pain greater than 3 months [...] Sign Reading Time Taken Comments Blood Pressure 108/70 08/13/2011 1:37 PM EDT Pulse 60 08/13/2011 1:37 PM EDT Temperature - - Respiratory Rate - - Oxygen Saturation - - Inhaled Oxygen Concentration - - Weight 84.4 kg (186 lb) 08/13/2011 1:37 PM EDT Height 182.9 cm (6') 08/13/2011 1:37 PM EDT Body Mass Index 25.23 08/13/2011 1:37 PM EDT documented in this encounter Patient Instructions * Patient Instructions* Diogo Robb PA - 08/13/2011 2:57 PM EDT Labs are stable - good kidney function and potassium EKG with acceptable intervals - sinus rhythm; unchanged from previous EKGs(right bundle branch block and left anterior fascicular block) Continue dofetilide 500mcg twice daily and metoprolol; prescription for dofetilide sent to [facility] Discussed additional monitoring for intermittent sensation of tachycardia and lightheadedness - notcaptured on Zio or holter; implanted loop recorder would likely provide best chance of capturing this. Call if you decide to proceed. Follow up in six months with 12 lead EKG, BUN/creat, electrolytes documented in this encounter Progress Notes * Diogo Robb PA - 08/13/2011 1:38 PM EDT Subjective: Patient ID: Malik Machado is a 61 y.o. male. HPI Mr. Machado is a 61 year old male with a history of recurrent paroxysmal atrial fibrillation maintained on dofetilide. His course has involved multiple cardioversions and failed flecainide therapy(MO/QRS prolongation). He has been on dofetilide since 12/2007 and is reasonably controlled though he notes occasional episodes of fluttering lasting less than a minute. He believes these episodes are bcoming somewaht more frequent though still not occurring daily or even weekly. He sometimes has associated lightheadedness. These symptoms are of longstanding, he now feels them more acutely though not more frequently. Serial EKGs and a 30 day event monitor(12/2010) did not demonstrate afib or other arrythmia. He had a more sustained episode about two weeks after turning in his event monitor. He takes his dofetilide and metoprolol regularly. He denies chest pain or dyspnea but does feel these events as fluttering, palpitations and has associated lightheadedness but no syncope. He expresses concern regarding the lightheadedness and possible progression to syncope as he drivesa lot and transports his grandson. He continues to be active in martial arts. Problem List: 1) Recurrent AF -S/P cardioversions x 3 (09/2005, 01/2006. 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 Cardiovascular: Positive for irregular heartbeat and palpitations. Negative for chest pain, dyspneaon exertion, leg swelling, near-syncope, orthopnea, PND and syncope. Respiratory: Negative for cough and shortness of breath. Gastrointestinal: Negative for abdominal pain and diarrhea. Genitourinary: Negative for dysuria, frequency and hematuria. Neurological: Positive for light-headedness. Negative for loss of balance, numbness and paresthesias. History Social History ??? Marital Status: Spouse Name: N/A Number of Children: N/A ??? Years of Education: N/A Occupational History ??? Not on file. Social History Main Topics ??? Smoking status: Former Smoker Quit date: 08/13/1983 ??? Smokeless tobacco: Never Used ??? Alcohol Use: Not on file ??? Drug Use: Not on file ??? Sexually Active: Not on file Other Topics Concern ??? Not on file Social History Narrative ??? No narrative on file Current outpatient prescriptions:aspirin 325 mg tablet, Take 325 mg by mouth daily., Disp: , Rfl: ;baclofen (LIORESAL) 10 mg tablet, Take 10 mg by mouth daily., Disp: , Rfl: ; methadone (DOLOPHINE) 10 mg tablet, Take 10 mg by mouth 2 times daily., Disp: , Rfl: ; metoprolol succinate (TOPROL-XL) 50mg 24 hr tablet, Take 50 mg by [...] 2 tabs hs prn, Disp: , Rfl: dofetilide (TIKOSYN) 500 mcg capsule, Take 1 capsule by mouth 2 times daily., Disp: 180 capsule, Rfl: 0; Fish Oil 360-1,200 mg Cap, , Disp: , Rfl: ; glucosamine-chondroitin 500-400 mg tablet, , Disp:, Rfl: ; acetaminophen (TYLENOL) 500 mg tablet, , Disp: , Rfl: Objective: Physical Exam Vitals reviewed. Constitutional: He is oriented to person, place, and time. He appears well- developed and well-nourished. No distress. Neck: No JVD present. Cardiovascular: Normal rate and regular rhythm. No murmur heard. Pulmonary/Chest: Effort normal and breath sounds normal. No respiratory distress. He has no wheezes. He has no rales. He exhibits no tenderness. Abdominal: Soft. No tenderness. Musculoskeletal: Normal range of motion. He exhibits no tenderness. Neurological: He is alert and oriented to person, place, and time. Skin: Skin is warm and dry. No rash noted. He is not diaphoretic. Labs: No results found for this basename: wbc, hgb, hct, platelet No results found for this basename: INR in the last 168 hours .Lab Results Component Value Date NA 139 08/13/2011 K 4.3 08/13/2011 CL 102 08/13/2011 BUN 19 08/13/2011 CREATININE 0.93 08/13/2011 12 lead EK08/13/2011 Sinus bradycardia @ 57, RBBB, LAHB; MO 156, QRS 134, QTc 445ms Unchanged from previous EKG Echo: 09/09/2007 LVEF 60% Nuclear stress: 12/12/2007 Christiano 6:45, 8.10 METS, 62-104HR, LVEF 63% Assessment and Plan: 60yo man with history of symptomatic, paroxysmal atrial fibrillation, failed flecainide now maintained on dofetilide 500mcg BID and Toprol XL 50mg daily. He is on full dose aspirin but no coumadin. In general, he is doing well but continues to have a sensation of recurrent brief tachycardia sometimes associated with lightheadedness. His recurrent episodes have not been demonstrated to be related to afib or other arrythmia. His symptoms are significant enough to him that he would like to pursue diagnosis/treatment. We discussed various approaches to evaluating this, the primary issue being whether this is afib orsome other arrythmia. We discussed additional ambulatory monitoring, an implanted loop recorder and EPS, +/-ILR. He expresses worry about the possibility of syncope(though he has not had syncope or pre-syncope to date) especially given his RBBB/LAHB. He cannot tolerate an increased dose of metoprolol due to bradycardia and fatigue. Renal function remains good and electrolytes are in acceptable range. EKG intervals are stable. Plan: -Continue dofetilide 500mcg PO BID and Toprol -Follow up in 6 months with 12 lead EK, BUN/creat, lytes -He defers repeat ambulatory monitoring and would like to think about EPS/ILR Provider: ANDREE Shelley Provider#: [id number] Consult attending physician: Michelle Davies MD documented in this encounter Plan of Treatment Upcoming Encounters Date Type Department Care Team (Late st Contact Info) Description 08/18/2024 11:00 AM EDT Hospital Encounter Non-Invasive [place] [address] Arrived 02/22/2025 1:30 PM EDT Appointment Hematology [place] [phone] 02/22/2025 2:30 PM EDT Office Visit Hematology [place] [address] Ellis Childers MD [facility] DR HEMATOLOGY AND ONCOLOGY [place], [place] [id number] Felicita Landa APRN [facility] HEMATOLOGY [place] [address] documented as of this encounter Procedures Procedure Name Priority Date/Time Associated Diagnosis Comments EKG 12-LEAD Routine 08/13/2011 1:37 PM EDT A-fib BASIC METABOLIC PANEL STAT 08/13/2011 12:32 PM EDT A-fib documented in this encounter Results * EKG 12 Lead (08/13/2011 1:37 PM EDT) Ventricular rate 57 BPM MUSE SYSTEM Atrial Rate 57 BPM MUSE SYSTEM P-R Interval 156 ms MUSE SYSTEM QRS Duration 134 ms MUSE SYSTEM Q-T Interval 458 ms MUSE SYSTEM QTC Calculated (Bezet) 445 ms MUSE SYSTEM Calculated P [place] 36 degrees MUSE SYSTEM Calculated R [place] -48 degrees MUSE SYSTEM Calculated T [place] 4 degrees MUSE SYSTEM INTERPRETATION Sinus bradycardia Right bundle branch block Left anterior fascicular block Bifascicular block Abnormal ECG When compared with ECG of 13-JAN-2011 12:46, No significant change was found Confirmed by MD CHLOÉ, CHRISTIANO ([id number]) on 08/14/2011 9:53:15 AM MUSE SYSTEM 08/13/2011 1:37 PM EDT 08/14/2011 9:53 AM EDT Luis Davies MD ECG ORDERABLES MUSE SYSTEM * (ABNORMAL) Basic Metabolic Panel (non-fasting) (08/13/2011 12:32 PM EDT) Glucose 123 60 - 199 mg/dL CERNER [...] EDT Isauro Santana MD CHEMISTRY ORDERABLE S Performing Organization Address City/State/[facility] Co de Phone Number [facility] documented in this encounter Visit Diagnoses Diagnosis A-fib- Primary Atrial fibrillation Atrial fibrillation Chronic back pain greater than 3 months duration Backache, unspecified documented in this encounter Care Teams Junk Dealer Relationship Specialty Start Date End Date Radha Mckeon MD [address] [place] [address] PCP - General 09/23/10 documented as of this encounter
--- OUTSIDE RECORDS SUMMARY | 2024-07-24 17:33 | XMS_ITS | Encounter Summary ---
Author Organization [facility] [place] [address] Care Team Providers Care Pail Tester Name Role Phone Radha Mckeon MD Primary Care Provider [phone] Reason for Visit * Reason Comments Atrial Fibrillation Encounter Details Date Type Department Care Team (Late st Contact Info) Description 02/09/2012 12:40 PM EDT Follow-Up Cardiology at [address] [address] Diogo Robb PA [facility] [place] [address] Atrial fibrillation (Primary Dx) Discharge Disposition: Home Social History [...] Reading Time Taken Comments Blood Pressure 140/80 02/09/2012 2:03 PM EDT Lt arm sitting Pulse 54 02/09/2012 2:03 PM EDT Regul ar Temperature - - Respiratory Rate - - Oxygen Saturation 98% 02/09/2012 2:03 PM EDT Room air @ rest Inhaled Oxygen Concentration - - Weight 85.3 kg (188 lb) 02/09/2012 2:03 PM EDT D ressed Height 182.9 cm (6') 02/09/2012 2:03 PM EDT Body Mass Index 25.5 02/09/2012 2:03 PM EDT documented in this encounter Patient Instructions * Patient Instructions* Diogo Robb PA - 02/09/2012 4:28 PM EDT Follow up in six months - with regadenoson stress test, 12 lead EKG, chem 7 documented in this encounter Progress Notes * Diogo Robb PA - 02/09/2012 3:10 PM EDT Subjective: Patient ID: Malik Machado is a 61 y.o. male. HPI Mr. Machado is a 61 year old male with a history of recurrent paroxysmal atrial fibrillation maintained on dofetilide. His course has involved multiple cardioversions and failed flecainide therapy([place]/QRS prolongation). He has been on dofetilide since 12/2007 and is reasonably controlled though he notes occasional episodes of fluttering lasting less than a minute. Since his last visit, he has had only a few episodes, although he does report a new type of episode in which he was awakenedfrom sleep with sensation of something happening in his chest. He denies chest pain or palpitations/fluttering but felt something strange which lasted a few minutes and then resolved. He sometimes has associated lightheadedness, but has [...] block with left anterior fascicular block) 426.52B Review of Systems Constitutional: Negative for chills, decreased appetite, diaphoresis, fever, weakness and malaise/fatigue. Cardiovascular: Positive for palpitations. Negative for chest pain, dyspnea on exertion, irregular heartbeat, leg swelling, near-syncope, orthopnea, PND and syncope. Respiratory: Negative for cough and shortness of breath. History Substance Use Topics ??? Smoking status: Former Smoker Quit date: 08/13/1983 ??? Smokeless tobacco: Never Used ??? Alcohol Use: Not on file Current outpatient prescriptions:acetaminophen (TYLENOL) 500 mg tablet, Take 1,000 mg by mouth every 6 hours as needed. Indications: Headache Disorder, Pain, Disp: , Rfl: ; dofetilide (TIKOSYN) 500 mcg capsule, Take 1 capsule by mouth 2 times daily., Disp: 180 capsule, Rfl: 1; aspirin 325 mg tablet, Take 325 mg by mouth daily., Disp: , Rfl: ; baclofen (LIORESAL) 10 mg tablet, Take 10 mg by mouth daily., Disp: , Rfl: methadone (DOLOPHINE) 10 mg tablet, Take 10 [...] mg by mouth nightly., Disp: , Rfl: SUMAtriptan (IMITREX) 100 mg tablet, Take 100 mg by mouth as needed., Disp: , Rfl: ; zolpidem (AMBIEN) 5 mg tablet, Take 5 mg by mouth nightly as needed. 1 to 2 tabs hs prn, Disp: , Rfl: ; Fish Oil 360-1,200 mg Cap, , Disp: , Rfl: ; glucosamine-chondroitin 500-400 mg tablet, , Disp: , Rfl: Objective: Physical Exam Vitals reviewed. Constitutional: He is oriented to person, place, and time. No distress. HENT: Mouth/Throat: No oropharyngeal exudate. Neck: No JVD present. Cardiovascular: Normal rate and regular rhythm. No murmur heard. Pulmonary/Chest: Effort normal and breath sounds normal. Musculoskeletal: Normal range of motion. He exhibits no edema. Neurological: He is alert and oriented to person, place, and time. Skin: Skin is warm and dry. He is not diaphoretic. 12 lead EKG: Normal sinus rhythm @ 62; W[place] 158, QRS 138, QTc 460 .Lab Results Component Value Date NA 139 08/13/2011 K 4.3 08/13/2011 CL 102 08/13/2011 BUN 19 08/13/2011 CREATININE 0.93 08/13/2011 OSH Sanket Perez 01/07/2012 K 4.4 Creat 0.9 BUN 19 Assessment and Plan: 60yo man with history of symptomatic, paroxysmal atrial fibrillation, failed flecainide now maintained on dofetilide 500mcg BID and Toprol XL 50mg daily. He is on full dose aspirin but no coumadin. He admits to failing to take his aspirin regularly. In general, he is doing well but continues to have a sensation of recurrent brief tachycardia sometimes associated with lightheadedness. His recurrent episodes have not been demonstrated to be related to afib or other arrythmia. We discussed various approaches to evaluating this, [...] with 12 lead EK, BUN/creat, lytes -He will need a regadenoson stress test(cannot exercise due to knee/back injury) preferably on the same day as six month follow up -He defers repeat ambulatory monitoring Provider: ANDREE Shelley Provider#: [id number] Consult attending physician: Cynthia Gilmore MD documented in this encounter Plan of Treatment Upcoming Encounters Date Type Department Care Team (Late st Contact Info) Description 08/18/2024 11:00 AM EDT Hospital Encounter Non-[place] [phone] Arrived 02/22/2025 1:30 PM EDT Appointment [place] [address] 02/22/2025 2:30 PM EDT Office Visit [place]ology [place] [address] Ellis Childers MD [facility] DR HEMATOLOGY [place] [address] Felicita Landa APRN [facility] DR HEMATOLOGY [place] [address] documented as of this encounter Procedures Procedure Name Priority Date/Time Associated Diagnosis Comments EKG 12-LEAD Routine 02/09/2012 2:13 PM EDT Atrial fibrillation documented in this encounter Results * EKG 12 Lead (02/09/2012 2:13 PM EDT) Ventricular rate 62 BPM MUSE SYSTEM Atrial Rate 62 BPM MUSE SYSTEM P-R Interval 158 ms MUSE SYSTEM QRS Duration 138 ms MUSE SYSTEM Q-T Interval 454 ms MUSE SYSTEM QTC Calculated (Bezet) 460 ms MUSE SYSTEM Calculated P [place] 39 degrees MUSE SYSTEM Calculated R Scott -53 degrees MUSE SYSTEM Calculated T Scott 11 degrees MUSE SYSTEM INTERPRETATION Normal sinus rhythm Right bundle branch block Left anterior fascicular block Bifascicular block Abnormal ECG When compared with ECG of 13-AUG-2011 13:37, No significant change was found I personally reviewed the tracing and edited the fellows interpretation Confirmed by fellow MD Simon Alina ([id number]) on 02/10/2012 1:26:36 PM Confirmed by Juana Lamar, Chad Hebert ([id number]) on 02/10/2012 3:58:56 PM MUSE SYSTEM 02/09/2012 2:13 PM EDT 02/10/2012 3:58 PM EDT Cullen Gilmore MD ECG ORDERABLES MUSE SYSTEM documented in this encounter Visit Diagnoses Diagnosis Atrial fibrillation- Primary documented in this encounter Care Teams Pail Tester Relationship Specialty Start Date End Date Radha Mckeon MD [address] [place] [address] PCP - General 09/23/10 documented as of this encounter
--- OUTSIDE RECORDS SUMMARY | 2024-07-24 17:33 | XMS_ITS | Encounter Summary ---
Author Organization [facility] [place] [address] Care Team Providers Care Line O Scribe Operator Name Role Phone Radha Mckeon MD Primary Care Provider [phone] Reason for Visit * Reason Onset Date Comments Other 07/14/2012 Nuclear Stress T est Order Encounter Details Date Type Department Care Team (Late st Contact Info) Description 07/14/2012 Telephone Cardiology at [address] [phone] Diogo Robb, PA [facility] [place] [address] Other (Nuclear Stress Test Order) Social History Tobacco Use Types Packs/Day [...] * Telephone Encounter - Rosanna Altamirano - 07/14/2012 1:01 PM EDT Hi, Please sign the attached nuclear stress test order. Thanks, Magdalena documented in this encounter Plan of Treatment Upcoming Encounters Date Type Department Care Team (Late st Contact Info) Description 08/18/2024 11:00 AM EDT Hospital Encounter [place] [address] Arrived 02/22/2025 1:30 PM EDT Appointment Hematology [place] [phone] 02/22/2025 2:30 PM EDT Office Visit Hematology [place] [address] Ellis Childers MD [facility] [address] [place] [address] Felicita Landa APRN [facility] [address] [place] [address] documented as of this encounter Visit Diagnoses Diagnosis A-fib- Primary Atrial fibrillation documented in this encounter Care Teams Line O Scribe Operator Relationship Specialty Start Date End Date Radha Mckeon MD [address] [place] [address] PCP - General 09/23/10 documented as of this encounter
--- OUTSIDE RECORDS SUMMARY | 2024-07-24 17:33 | XMS_ITS | Encounter Summary ---
Author Organization [facility] Address [address] [place] [address] Care Team Providers Care Department Administrator Name Role Phone Radha Mckeon MD Primary Care Provider [phone] Encounter Details Date Type Department Care Team (Late st Contact Info) Description 04/03/2022 Lab Requisition [facility] Pathology & Laboratory Medicine - [address] [id number] Outr Resulting Lab, Provider Social History Tobacco [...] Procedure Name Priority Date/Time Associated Diagnosis Comments H. PYLORI ANTIGEN Routine 04/02/2022 14: 00 EDT documented in this encounter Results * H. PYLORI ANTIGEN (04/02/2022 14:00 EDT) H. Pylori Negative Negative 04/06/2022 16:12 EDT [facility] Feces SPECIMEN FROM RECTUM / Unknown 04/02/2022 14:00 EDT 04/03/2022 17:50 EDT Narrative [facility] - 04/06/2022 16:12 EDT Results were obtained with the [employer] LEANNE. Provider Outr Resulting Lab MICROBIOLOGY - GENERAL ORDERABLES [facility] [address] [place] [address] documented in this encounter Visit Diagnoses Not on filedocumented in this encounter Care Teams Department Administrator Relationship Specialty Start Date End Date Radha Mckeon MD [address] [place] [address] PCP - General 04/03/20 documented as of this encounter
--- OUTSIDE RECORDS SUMMARY | 2024-07-24 17:33 | XMS_ITS | Encounter Summary ---
Author Organization [facility] Address [address] [place] [address] Care Team Providers Care Creel Operator Name Role Phone Radha Mckeon MD Primary Care Provider Encounter Details Date Type Department Care Team (Latest Contact Info) Description 07/04/2020 Travel Social History Tobacco Use Types Packs/Day [...] on filedocumented in this encounter Care Teams Creel Operator Relationship Specialty Start Date End Date Radha Mckeon MD [address] [place] [address] PCP - General 04/03/20 documented as of this encounter
--- OUTSIDE RECORDS SUMMARY | 2024-07-24 17:33 | XMS_ITS | Encounter Summary ---
Author Organization [facility] [place] [address] Care Team Providers Care Washcloth Folder Name Role Phone Radha Mckeon MD Primary Care Provider [phone] Reason for Visit * Reason Comments [facility] SP R TKA DOS 01/15/20 10 Right Knee Pain Encounter Details Date Type Department Care Team (Late st Contact Info) Description 02/25/2012 3:30 PM EDT Office Visit [place] [address] Gene Kong, PA [facility] DR ORTHOPAED[place] [address] S/P knee replacement (Primary Dx) Discharge Disposition: [...] Sign Reading Time Taken Comments Blood Pressure 123/83 02/25/2012 4:16 PM EDT Pulse 57 02/25/2012 4:16 PM EDT Temperature 36.8 ??C (98.3 ??F) 02/25/2012 4:16 PM ED T Respiratory Rate - - Oxygen Saturation - - Inhaled Oxygen Concentration - - Weight 85.8 kg (189 lb 1.6 oz) 02/25/2012 4:16 P M EDT Height 182.9 cm (6') 02/25/2012 4:16 PM EDT PT S TATED Body Mass Index 25.65 02/25/2012 4:16 PM EDT documented in this encounter Patient Instructions * Patient Instructions* Gene Kong PA - 02/25/2012 4:52 PM EDT -activities as tolerated with exception of running (axial loading) -infection awareness -continue stretching and strengthening -antibiotic prior to dental work documented in this encounter Progress Notes * Gene Kong PA - 02/29/2012 7:54 AM EDT SURGERY DATE: 01/14/2010 GANGA CHAVEZ MD PROCEDURE PERFORMED: Right total knee [...] quick set cement. HPI: Mr Machado returns 2 years form his knee replacement. He continues to have signficiant pain; more his back than his knee but he struggles with pain. There is no knee swelling. The pain tends to be to the anterior knee. ROM and stability are not limiting. He has had no injuries. He continues tostretch and strengthen regularly. He denies fevers or chills. No SOB or chest pain. 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 He feels overall he is still improving but the progress is quite slow. Physical Exam: 61 yo male ambulatory without assist or antalgia. When supine his leg lengths are equal. Calves soft and nontender without edema. He is able to straight leg raise without lag. The right knee shows no effusion. ROM from 0-117 with some anterior pressure. No increased pain or laxity with varus and valgus stress. No pain with ROM of the hip joint. Some increased discomfort with resisted knee extension. X-rays: Noncemented right total knee arthroplasty without radiolucencies are periprosthetic fracture or effusion. The left knee is normal. Assessment: S/P Right TKA Plan: I think he is doing well. I encouraged continued quad strengthening. We reviewed joint precautions and infection management. Antibiotic prophylaxis was recommended. We discussed appropriate activities to prevent premature implant failure. We'll plan to f/u in 1 year(s) or sooner as needed. documented in this encounter Plan of Treatment Upcoming Encounters Date Type Department Care Team (Late st Contact Info) Description 08/18/2024 11:00 AM EDT Hospital Encounter Non-Invasive [place] [address] Arrived 02/22/2025 1:30 PM EDT Appointment Hematology and Oncology at [place] [address] 02/22/2025 2:30 PM EDT Office Visit Hematology [place] [address] Ellis Childers MD [facility] DR HEMATOLOGY [place] [address] Felicita Landa APRN [facility] DR HEMATOLOGY [place] [address] documented as of this encounter Results * [...] and interpretation reviewed by the attending Ganga Chavez MD IMG DX ORDERABLES documented in this encounter Visit Diagnoses Diagnosis S/P knee replacement- Primary Knee joint replacement by other means S/P knee replacement Knee joint replacement by other means documented in this encounter Care Teams Washcloth Folder Relationship Specialty Start Date End Date Radha Mckeon MD [address] [place] [address] PCP - General 09/23/10 documented as of this encounter
--- OUTSIDE RECORDS SUMMARY | 2024-07-24 17:33 | XMS_ITS | Encounter Summary ---
Author Organization [facility] Address [address] [place] [address] Care Team Providers Care Inpatient Services Rn Name Role Phone Radha Mckeon MD Primary Care Provider [phone] Encounter Details Date Type Department Care Team (Late st Contact Info) Description 10/18/2023 Lab Requisition [facility] Pathology & Laboratory Medicine - [address] [id number] Outr Resulting Lab, Provider Social History Tobacco [...] Comments DOUBLE STRANDED DNA ANTIBODY, IGG Routine 10/13/2023 12:46 EST documented in this encounter Results * DOUBLE STRANDED DNA ANTIBODY, IGG (10/13/2023 12:46 EST) dsDNA Ab, IgG <22.0 <27.0 IU/mL 10/19/2023 14:18 EST [facility] Comment: Negative: <27.0 IU/mL Indeterminate: 27.0 - 35.0 IU/mL Positive: >35.0 IU/mL Results were obtained with [employer] Flash dsDNA chemiluminescent immunoassay. Values obtained with different manufacturers' assay methods may not be used interchangeably. Blood VENOUS BLOOD / Unknown 10/13/2023 12:46 EST 10/18/2023 16:49 EST Provider Outr Resulting Lab IMMUNOLOGY A ND SEROLOGY ORDERABLES [facility] [address] [place] [address] documented in this encounter Visit Diagnoses Not on filedocumented in this encounter Care Teams Inpatient Services Rn Relationship Specialty Start Date End Date Radha Mckeon MD [address] [place] [address] PCP - General 04/03/20 documented as of this encounter
--- OUTSIDE RECORDS SUMMARY | 2024-07-24 17:33 | XMS_ITS | Encounter Summary ---
[place] [address] Care Team Providers Care Zinc Etcher Name Role Phone Radha Mckeon MD Primary Care Provider [phone] Encounter Details Date Type Department Care Team (Late st Contact Info) Description 11/13/2010 3:00 PM EST Procedure visit [place] [address] Social History Tobacco Use Types Packs/Day Years [...] AM EDT Hospital Encounter Non[place] [address] Arrived 02/22/2025 1:30 PM EDT Appointment Hematology [place] [address] 02/22/2025 2:30 PM EDT Office Visit Hematology [place] [phone] Ellis Childers MD [facility] [address] [place] [address] Felicita Landa APRN [facility] [address] [place] [address] documented as of this encounter Visit Diagnoses Not on filedocumented in this encounter Care Teams Zinc Etcher Relationship Specialty Start Date End Date Radha Mckeon MD [address] [place] [address] PCP - General 09/23/10 documented as of this encounter
--- OUTSIDE RECORDS SUMMARY | 2024-07-24 17:33 | XMS_ITS | Encounter Summary ---
Author Organization [facility] Address [address] [place] [address] Care Team Providers Care Direct Support Professional Home Health Name Role Phone Radha Mckeon MD Primary Care Provider [phone] Encounter Details Date Type Department Care Team (Late st Contact Info) Description 07/26/2021 Lab Requisition [facility] Pathology & Laboratory Medicine - [address] [address] Outr Resulting Lab, Provider Social History Tobacco [...] Procedure Name Priority Date/Time Associated Diagnosis Comments T3 FREE Routine 07/25/2021 13:00 EDT documented in this encounter Results * T3 FREE (07/25/2021 13:00 EDT) T3, Free 3.0 2.8 - 5.3 pg/mL 07/27/2021 16:20 EDT [facility] Blood VENOUS BLOOD / Unknown 07/25/2021 13:00 EDT 07/27/2021 15:46 EDT Provider Outr Resulting Lab CHEMISTRY & BLOOD GAS ORDERABLES [facility] [address] [place] [address] documented in this encounter Visit Diagnoses Not on filedocumented in this encounter Care Teams Direct Support Professional Home Health Relationship Specialty Start Date End Date Radha Mckeon MD [address] [place] [address] PCP - General 04/03/20 documented as of this encounter
--- OUTSIDE RECORDS SUMMARY | 2024-07-24 17:33 | XMS_ITS | Encounter Summary ---
Author Organization [facility] Address [address] [place] [address] Care Team Providers Care Mud Jack Nozzle Worker Name Role Phone Radha Mckeon MD Primary Care Provider [phone] Reason for Visit * Reason Comments Follow-up Encounter Details Date Type Department Care Team (Latest Contact Info) Description 11/05/2021 13:30 EST Office Visit [facility] Adult Hematology & Oncology [address] [place] [address] Kenisha Woods, KOSTAS [address] [facility] [address] [place] [address] Thrombopenia (HCC-CMS) (HCC) (Primary Dx); Idiopathic thrombocytopenic purpura (ITP) (HCC) (HCC-CMS) Social History Tobacco Use Types Packs/Day [...] EST Pulse 59 11/05/2021 1318 EST Temperature - - Respiratory Rate - - Oxygen Saturation 97% 11/05/2021 1318 EST Inhaled Oxygen Concentration - - Weight 79.8 kg (176 lb) 11/05/2021 1318 EST Height - - Body Mass Index 24.55 04/03/2020 1404 EDT documented in this encounter [...] Progress Notes * Kenisha Woods, KOSTAS - 11/05/2021 1330 EST Hematology Follow-up Note Date of Service: 11/05/2021 Hematology History: Thrombocytopenia: -12/22/2018: Platelet count: 79 [...] acyclovir (ZOVIRAX) 200 mg capsule 1 Cap. (Patient not taking: Reported on 11/05/2021) Not Taking ??? baclofen (LIORESAL) 10 mg tablet Take 10 mg by mouth daily as needed. 0 Taking ??? botulinum toxin A (BOTOX) 200 unit injection Inject 200 Units as directed every 90 days. (Patient not taking: Reported on 11/05/2021) Not Taking ??? cephALEXin (KEFLEX) 500 mg capsule Take 500 mg by mouth. (Patient not taking: Reported on 11/05/2021) Not Taking ??? diclofenac sodium 1 % gel Apply topically daily as needed. Taking ??? doxycycline (VIBRA-TABS) 100 mg tablet TK 1 T PO BID (Patient not taking: Reported on 11/05/2021)Not Taking ??? ELIQUIS 5 mg tablet Take 5 mg by mouth 2 times daily. (Patient not taking: Reported on 11/05/2021) 0 Not Taking ??? fluticasone propionate (FLONASE) 50 mcg/actuation nasal spray Instill 1 Neche into both nostrils 2 times daily. Taking ??? gabapentin (NEURONTIN) 300 mg capsule (Patient not taking: Reported on 11/05/2021) Not Taking ??? gabapentin (NEURONTIN) 600 mg tablet 3 times daily. (Patient not taking: Reported on 11/05/2021) Not Taking ??? lamoTRIgine (LAMICTAL) 25 mg tablet Take 50 mg by mouth 2 times daily. Taking ??? levothyroxine (SYNTHROID) 100 mcg tablet Take 100 mcg by mouth daily. 0 Taking ??? lidocaine 5 % (LIDODERM) 5 % patch Place 3 Patches onto the skin daily. (Patient not taking: Reported on 11/05/2021) Not Taking ??? lidocaine-prilocaine (EMLA) cream INDRA EXT AA B PRO (Patient not taking: Reported on 11/05/2021) Not Taking ??? methocarbamoL (ROBAXIN) 750 mg tablet Take 750 mg by mouth every 8 hours as needed for Muscle Spasms. (Patient not taking: Reported on 11/05/2021) Not Taking ??? metoprolol XL (TOPROL-XL) 100 [...] mg tablet Take 25 mg by mouth. (Patient not taking: Reported on 11/05/2021) Not Taking ??? ranitidine (ZANTAC) 150 mg capsule Take 150 mg by mouth daily. (Patient not taking: Reported on11/05/2021) Not Taking ??? rivaroxaban (XARELTO) 10 mg tablet tablet Take 10 mg by mouth daily with dinner. Taking ??? senna-docusate (PERICOLACE) 8.6-50 mg per tablet Take 2 Tabs by mouth 2 times daily. (Patient not taking: Reported on 11/05/2021) Not Taking ??? simvastatin (ZOCOR) 10 mg tablet Take 10 mg by mouth at bedtime. 0 Taking ??? sumatriptan (IMITREX) 100 mg tablet Take 100 mg by mouth once. 1/2-1 tab. As needed for headache 1 Taking ??? SUMAtriptan (IMITREX) 20 mg/actuation nasal spray 1 Neche by nasal route PRE-OP Q 2 HOURS. (Patient not taking: Reported on 11/05/2021) Not Taking ??? tamsulosin (FLOMAX) 0.4 mg capsule Take 1 Cap by mouth daily. Taking ??? triamcinolone (KENALOG) 0.1 % ointment Apply 0.1 Doses topically to affected area 3 times dailyas needed. 0 Taking ??? Triamcinolone Acetonide (KENALOG) 0.025 % lotion Apply topically as needed. ??? valACYclovir (VALTREX) 500 mg tablet Take 500 mg by mouth daily. (Patient not taking: Reported on 11/05/2021) 0 Not Taking ??? verapamil (CALAN-SR) 120 mg CR tablet Take 120 mg by mouth once. 0 Taking ??? warfarin (COUMADIN) 1 mg tablet Indications: ALTERNATING WITH 2 MG (Patient not taking: Reported on 11/05/2021) Not Taking ??? XARELTO 20 mg tablet tablet (Patient not taking: Reported on 11/05/2021) Not Taking No current facility-administered medications for this visit. Objective: VS: Patient Vitals for the past 24 hrs: BP Pulse SpO2 Weight 11/05/21 1318 132/74 59 97 % 79.8 kg (176 lb) Physical Exam: General appearance: Awake, alert, oriented x3, NAD Skin: Skin color, tempature, turgor normal, no petechia or purpura noted Head: Normocephalic, without obvious abnormality Eyes: sclerae anicteric Neck: supple, symmetrical Extremities: extremities warm, atraumatic Data Review: Labs: Results for orders placed or performed in visit on 11/05/21 COMPLETE BLOOD COUNT Result Value Ref Range WBC 5.49 4.00 - 10.40 K/cmm RBC 4.89 4.36 - 5.78 M/cmm Hemoglobin 15.6 13.8 - 17.3 gm/dL HCT 45.7 39.5 - 50.2 % MCV 94 81 - 95 fl MCH 31.9 27.6 - 33.0 pg MCHC 34.1 32.8 - 36.4 gm/dL RDW-CV 11.9 <14.2 % RDW-SD 41.1 <46.0 fl PLT 92 (L) 141 - 377 K/cmm MPV 12.6 9.5 - 12.7 fl Assessment: 69-year-old male with past medical history significant for hypothyroidism, atrial fibrillation who has low-grade thrombocytopenia since December,. He was ruled out for HIV and hepatitis B, C. B12 and folate levels were normal. Low-grade thrombocytopenia in his situation could be idiopathic in nature/from accessory spleen. Repeat CBC from today with platelet count at 92,000. I mentioned to him that he would [...] performed at the time of the visit. Other Orders Placed This Visit Procedures ??? Complete Blood Count Kenisha Woods MD Clinical Practice Physician Hematology/ Medical Oncology [facility] Ph no: [phone] * Renata Miller RN - 11/05/2021 1330 EST Suspicion of Abuse: no - If yes, please document evidence: - Assessed on: 11/05/21 13:34 - Assessed by: RENATA MILLER RN Procedures: - Venipuncture Performed by: RENATA MILLER RN Site Collected: Right Antecubital Space Volume Withdrawn: LAV EDTA 3.0 mL Patient Response:Patient tolerated venipuncture well Number of attempts: Collected on: 11/05/21 13:34 Ordering Provider:Kenisha Woods MD documented in this encounter Plan of Treatment Not on file documented as of this encounter Procedures Procedure Name Priority Date/Time Associated Diagnosis Comments COMPLETE BLOOD COUNT STAT 11/05/2021 13:37 EST Thrombopenia ([facility]) (HCC) documented in this encounter Results * (ABNORMAL) COMPLETE BLOOD COUNT (11/05/2021 13:37 EST) WBC 5.49 4.00 - 10.40 K/cmm 11/05/2021 17:12 [facility] RBC 4.89 4.36 - 5.78 M/cmm 11/05/2021 17:12 [facility] Hemoglobin 15.6 13.8 - 17.3 gm/dL 11/05/2021 17:12 [facility] HCT 45.7 39.5 - 50.2 % 11/05/2021 17:12 [facility] MCV 94 81 - 95 fl 11/05/2021 17:12 [facility] MCH 31.9 27.6 - 33.0 pg 11/05/2021 17:12 [facility] MCHC 34.1 32.8 - 36.4 gm/dL 11/05/2021 17:12 [facility] RDW-CV 11.9 <14.2 % 11/05/2021 17:12 [facility] RDW-SD 41.1 <46.0 fl 11/05/2021 17:12 [facility] PLT 92(L) 141 - 377 K/cmm 11/05/2021 17:12 [facility] MPV 12.6 9.5 - 12.7 fl 11/05/2021 17:12 [facility] Blood VENOUS BLOOD / Unknown Venipuncture / Unknown 11/05/2021 13:37 EST 11/05/2021 13:37 EST Kenisha ATWOODBS HEMATOLOGY & PF4 O RDERABLES [facility] [address] [place] [address] documented in this encounter Visit Diagnoses Diagnosis Thrombopenia (HCC-CMS)- Primary Thrombocytopenia, unspecified 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 Error 11/18/2019 11/05/2021 pregabalin (LYRICA) 75 mg capsule TAKE 1 CAPSULE BY MOUTH TWICE DAILY DISCONTINUE GABAPENTIN Duplicate order 01/08/2021 11/05/2021 documented as of this encounter Care Teams Mud Jack Nozzle Worker Relationship Specialty Start Date End Date Radha Mckeon MD [address] [place] [address] PCP - General 04/03/20 documented as of this encounter
--- OUTSIDE RECORDS SUMMARY | 2024-07-24 17:33 | XMS_ITS | Encounter Summary ---
Author Organization [facility] Address [address] [place] [address] Care Team Providers Care Manager Staffing Name Role Phone Radha Mckeno MD Primary Care Provider [phone] Reason for Visit * Reason Comments Follow-up Encounter Details Date Type Department Care Team (Late st Contact Info) Description 10/09/2020 14:00 EST Office Visit [facility] Adult Hematology & Oncology [facility] [place] [address] Kenisha Woods, KOSTAS [address] [place] [address] Thrombopenia (HCC-CMS) (Primary Dx) Social History Tobacco Use Types Packs/Day Years Used Date Smoking Tobacco: Former Cigarettes 2.5 16 1 967 - 1983 Smokeless Tobacco: Never Alcohol Use Standard Drinks/Week [...] Sign Reading Time Taken Comments Blood Pressure 144/68 10/09/2020 1358 EST Pulse 58 10/09/2020 1358 EST Temperature - - Respiratory Rate - - Oxygen Saturation 100% 10/09/2020 1358 EST Inhaled Oxygen Concentration - - Weight 78.9 kg (174 lb) 10/09/2020 1358 EST Height - - Body Mass Index 24.27 04/03/2020 1404 EDT documented in this encounter [...] Progress Notes * Kenisha Woods MBBS - 10/09/2020 1400 EST Hematology Follow-up Note Date of Service: 10/09/2020 Hematology History: Thrombocytopenia: -12/22/2018: Platelet count: 79 -07/25/2019: Platelet count: 83 -09/13/2019: Platelet count: 83, ultrasound: Small accessory spleen -10/06/2019: HIV testing: Negative Hepatitis B, C work-up: Negative Vitamin B12 level: 365, folate level:>20 -04/03/2020: Platelet count: 128 Subjective: Malik is being seen in follow-up today. He denies weight or appetite changes, chest [...] mg tablet TK 1 T PO BID Taking ??? ELIQUIS 5 mg tablet Take 5 mg by mouth 2 times daily. 0 Not Taking ??? fluticasone propionate (FLONASE) 50 mcg/actuation nasal spray Instill 1 [place] into both nostrils 2 times daily. Taking ??? gabapentin (NEURONTIN) 300 mg capsule Taking ??? gabapentin (NEURONTIN) 600 mg tablet 3 times daily. Taking ??? lamoTRIgine (LAMICTAL) 25 mg tablet Take 50 mg by mouth 2 times daily. Taking ??? levothyroxine (SYNTHROID) 100 mcg tablet Take 100 mcg by mouth daily. 0 Taking ??? lidocaine 5 % (LIDODERM) 5 % patch Place 3 Patches onto the skin daily. Taking ??? lidocaine-prilocaine (EMLA) cream INDRA EXT AA B PRO Taking ??? methocarbamoL (ROBAXIN) 750 mg tablet Take 750 mg by mouth every 8 hours as needed for Muscle Spasms. Not Taking ??? metoprolol XL (TOPROL-XL) 100 mg tablet Take 150 mg by mouth daily. 0 Taking ??? multivitamin (THERAGRAN) per tablet Take 1 Tab by mouth daily. Taking ??? Multivits,Ca,Nlbaecig-Pxta-BV 9 mg iron-400 mcg tablet Take 1 [...] SUMAtriptan (IMITREX) 20 mg/actuation nasal spray 1 [place] by nasal route PRE-OP Q 2 HOURS. Taking ??? tamsulosin (FLOMAX) 0.4 mg capsule Take 1 Cap by mouth daily. Taking ??? triamcinolone (KENALOG) 0.1 % ointment Apply 0.1 Doses topically to affected area 3 times dailyas needed. 0 Taking ??? Triamcinolone Acetonide (KENALOG) 0.025 % lotion Apply topically as needed. Not Taking ??? valACYclovir (VALTREX) 500 mg tablet [...] past 24 hrs: BP Pulse SpO2 Weight 10/09/20 1358 (!) 144/68 58 100 % 78.9 kg (174 lb) Physical Exam: General appearance: Awake, alert, oriented x3, NAD. Skin: Skin color, tempature, turgor normal Head: Normocephalic, without obvious abnormality Eyes: sclerae anicteric Neck: supple, symmetrical Lungs: clear to auscultation bilaterally Heart: regular rate and rhythm Abdomen: soft, non-tender; bowel sounds normal Extremities: extremities warm, atraumatic Data Review: Labs: Results for orders placed or performed in visit on 10/09/20 CBC W/PLT & DIFF,POINT OF CARE - [facility] Result Value Ref Range ABSOLUTE NEUTROPHIL COUN - [facility] 3.4 1.7 - 7.0 10e3/uL BASO # - [facility] 0.02 0.0 - 0.3 10e3/uL BASO % - [facility] 0 0 - 2 % EOS # - [facility] 0.09 0.05 - 0.5 10e3/uL EOS % - [facility] 2 0 - 5 % GRAN % - [facility] 65.0 40 - 80 % HEMATOCRIT - [facility] 44.8 36.0 - 52.0 % HEMOGLOBIN - [facility] 15.7 13.7 - 17.5 g/dl LYMPH # - [facility] 1.1 0.9 - 2.9 10e3/ul LYMPH% - [facility] 20.5 20 - 40 % MEAN CORPUSCULAR HGB - [facility] 32.0 26 - 34 pg MEAN CORPUSCULAR HGB CONC - [facility] 35.0 31 - 36 g/dL MEAN CELL VOLUME - [facility] 91.2 77 - 100 fl MONO # - [facility] 0.6 0.3 - 0.9 10e3/uL MONO% - [facility] 12.4 (H) 0 - 12 % PLATELET COUNT 103 (L) 150 - 400 10e3/ul RED BLOOD COUNT - [facility] 4.91 4.3 - 5.7 10e6/ul RED CELL DISTRI WIDTH - [facility] 11.9 11.8 - 15.6 % WHITE BLOOD COUNT - [facility] 5.2 3.5 - 10.5 10e3/ul Assessment: 69-year-old male [...] confirms low-grade thrombocytopenia with platelet count at 103. I mentioned to him that he would be monitored with CBC checks every 6 months. We would not treat ITP until the platelet count is less than 20,000-30,000. Treatment options for ITP include: steroids, rituximab, IVIG, thrombopoietin receptor agonists. Plan: #1. Patient has low-grade ITP. #2. Treatment is required for ITP if the platelet count is less than 30,000 Follow-up: 6 months with CBC Other Orders Placed This Visit Procedures ??? Complete Blood Count Kenisha Woods MD Clinical Practice Physician Hematology/ Medical Oncology [facility] Ph no: [phone] * Kwabean Cordero MA - 10/09/2020 1400 EST Suspicion of Abuse: no - If yes, please document evidence: - Assessed on: 10/09/20 14:14 - Assessed by: KWABENA CORDERO MA Procedures: - Venipuncture Performed by: KWABENA CORDERO MA Site Collected: Right Antecubital Space Volume Withdrawn: STT: 8.5ml and Lavender Top: 3.0ml Patient Response:Patient tolerated venipuncture well and Butterfly used Number of attempts: 1 Collected on: 10/09/20 14:14 Ordering Provider:Kenisha Woods MD documented in this encounter Plan of Treatment Not on file documented as of this encounter Procedures Procedure Name Priority Date/Time Associated Diagnosis Comments CBC W/PLT & DIFF,POINT OF CARE [facility] Routine 10/09/2020 14:13 EST Thrombopenia ([facility]) documented in this encounter Results * (ABNORMAL) CBC W/PLT & DIFF,POINT OF CARE - [facility] (10/09/2020 14:13 EST) ABSOLUTE NEUTROPHIL COUN - [facility] 3.4 1.7 - 7.0 10e3/uL 10/09/2020 15:01 [facility] BASO # - [facility] 0.02 0.0 - 0.3 10e3/uL 10/09/2020 15:01 [facility] BASO % - [facility] 0 0 - 2 % 10/09/2020 15:01 [facility] EOS # - [facility] 0.09 0.05 - 0.5 10e3/uL 10/09/2020 15:01 [facility] EOS % - [facility] 2 0 - 5 % 10/09/2020 15:01 [facility] GRAN % - CV 65.0 40 - 80 % 10/09/2020 15:01 [facility] HEMATOCRIT - [facility] 44.8 36.0 - 52.0 % 10/09/2020 15:01 [facility] HEMOGLOBIN - [facility] 15.7 13.7 - 17.5 g/dl 10/09/2020 15:01 [facility] LYMPH # - [facility] 1.1 0.9 - 2.9 10e3/ul 10/09/2020 15:01 [facility] LYMPH% - [facility] 20.5 20 - 40 % 10/09/2020 15:01 [facility] MEAN CORPUSCULAR HGB - [facility] 32.0 26 - 34 pg 10/09/2020 15:01 [facility] MEAN CORPUSCULAR HGB CONC - [facility] 35.0 31 - 36 g/dL 10/09/2020 15:01 [facility] MEAN CELL VOLUME - [facility] 91.2 77 - 100 fl 10/09/2020 15:01 [facility] MONO # - [facility] 0.6 0.3 - 0.9 10e3/uL 10/09/2020 15:01 [facility] MONO% - [facility] 12.4(H) 0 - 12 % 10/09/2020 15:01 [facility] PLATELET COUNT 103(L) 150 - 400 10e3/ul 10/09/2020 15:01 [facility] RED BLOOD COUNT - [facility] 4.91 4.3 - 5.7 10e6/ul 10/09/2020 15:01 [facility] RED CELL DISTRI WIDTH - [facility] 11.9 11.8 - 15.6 % 10/09/2020 15:01 [facility] WHITE BLOOD COUNT - [facility] 5.2 3.5 - 10.5 10e3/ul 10/09/2020 15:01 [facility] 10/09/2020 14:1 3 EST 10/09/2020 14:13 EST Kenisha KENYON CHEMISTRY & BLOOD GAS ORDERABLES [facility] [address] [place] [address] documented in this encounter Visit Diagnoses Diagnosis Thrombopenia ([facility])- Primary Thrombocytopenia, unspecified documented in this encounter Historical Medications * This list may reflect changes made after this encounter. Medication Sig Dispensed Refills Start Date End Date doxycycline (VIBRA-TABS) 100 mg tablet TK 1 T PO BID 08/13/2020 lidocaine-prilocaine (EMLA) cream INDRA EXT AA B PRO 09/16/2020 added in this encounter Care Teams Manager Staffing Relationship Specialty Start Date End Date Radha Mckeon MD [address] [place] [address] PCP - General 04/03/20 documented as of this encounter
--- OUTSIDE RECORDS SUMMARY | 2024-07-24 17:34 | XMS_ITS | Encounter Summary ---
Author Organization [facility] Address [address] [place] [address] Care Team Providers Care Back Wedger Name Role Phone Jabari Palacio Primary Care Provider [phone] Encounter Details Date Type Department Care Team (Late st Contact Info) Description 07/30/2016 Results Only [facility] [phone] Radha Mckeon MD [address] [place], [place] [address] Social History Tobacco Use Types Packs/Day Years Used Date Smoking Tobacco: Never Assessed Sex and Gender Information Value Date Recorded Sex Assigned at Not on file Gender Identity Male 03/27/2020 12:31 EDT Sexual Orientation Not on file documented as of this encounter Plan of Treatment Not on file documented as of this encounter Procedures Procedure Name Priority Date/Time Associated Diagnosis Comments SURGICAL PATHOLOGY Routine 07/30/2016 19 :39 EDT documented in this encounter Results * SURGICAL PATHOLOGY (07/30/2016 19:39 EDT) Pathology Report: SURGICAL PATHOLOGY REPORT Reports generated via electronic interface contain original data; however they are lacking the format of the original report. Caution should be taken when reading/interpret ing unformatted reports. Name: ? OVIDIO MINOR ? Accession #: ? [id number] ? : ? 1950 (Age: 66) ??M ? Collect Date: ? 07/30/2016 ? Location: ? [facility] ? Receive Date: ? 07/31/2016 ? Provider: RADHA MCKEON MD Copy to: ? Final Pathologic Diagnosis: SKIN OF CHEST, RIGHT, PUNCH BIOPSY: - Melanocytic nevus, junctional lentiginous type, with unusual architectural features and mild cytologic atypia. - Nevus present at peripheral tissue edges. Microscopic Description: The epidermis shows mild hyperplasia consisting of thin and clubbed rete ridges. There is a proliferation of melanocytes within the epidermis that consists of rare nests but is predominated by individual cells in a lentiginous pattern. The nests are small and located at the tips of rete ridges. ??The individual melanocytes are generally evenly spaced along the dermal-epidermal junction. The melanocytes are slightly enlarged and have dark nuclei. ??There is abundant melanin pigment within the epidermis, stratum corneum, and dermal melanophages. (Dr. Retana)/[facility] Document reviewed and electronically signed by: AKHIL RETANA MD Report ??Date: 08/03/2016 16:08 By the signature above, the attending physician certifies that he/she has personally conducted a gross and/or microscopic examination of the described specimens and rendered or confirmed the above diagnosis. Specimen(s) Received: 5.0 mm punch bx of lesion R chest Clinical History: 4.0 x 2.0 mm dark brown lesion R chest; R/O melanoma Gross Description: ? Received in formalin labelled with proper patient identification (initials R, J) and lesion-abdomen is a punch biopsy of walker-white skin (0.6 cm in diameter and 0.6 cm in thickness). There is an eccentric, melanotic macule measuring 0.4 x 0.3 cm. Bisected and submitted in 1. Dr. Waddell 08/01/2016 9:[address] [facility] 07/30/2016 19:3 9 EDT 07/31/2016 19:39 EDT Radha Mckeon MD PATHOLOGY ORDERABLES [facility] [address] [place] [address] documented in this encounter Visit Diagnoses Not on filedocumented in this encounter Care Teams Back Wedger Relationship Specialty Start Date End Date Jabari Palacio DO PCP - General 09/10/14 04/02/20 documented as of this encounter
--- OUTSIDE RECORDS SUMMARY | 2024-07-24 17:34 | XMS_ITS | Encounter Summary ---
Author Organization [facility] Address [address] [place] [address] Care Team Providers Care Brand Marketing Specialist Name Role Phone Jabari Palacio Susanna SHETH Primary Care Provider [phone] Reason for Visit * Reason Onset Date Comments Update 10/13/2019 Encounter Details Date Type Department Care Team (Late st Contact Info) Description 10/13/2019 Telephone [facility] Adult Hematology & Oncology [address] [place] [address] Kenisha Woods, KOSTAS [address] [place] [address] [address] [place] [address] Update Social History Tobacco Use Types Packs/Day Years [...] encounter Miscellaneous Notes * Telephone Encounter - Sloane Bertrand LPN - 10/13/2019 1356 EST Message left for patient given plt count. I asked hime to call back if any further questions. SLOANE BERTRAND LPN 10/13/19 14:41 documented in this encounter Plan of Treatment Not on file documented as of this encounter Visit Diagnoses Not on filedocumented in this encounter Care Teams Brand Marketing Specialist Relationship Specialty Start Date End Date Jabari Palacio DO PCP - General 09/10/14 04/02/20 documented as of this encounter
--- OUTSIDE RECORDS SUMMARY | 2024-07-24 17:34 | XMS_ITS ---
Author Organization Unknown Address [address] [place] [phone] Phone Care Team Providers Care Head Control Clerk Name Role Phone JACINTA QUINONEZ Attending Unavailable CODI Arias Primary Unavailable Social History Type Status Start Date End Date Code Code Syst em Smoking History Never smoker (Never Smoked) 582990797 SNOMED CT Sex Male Medications Medication Start Date End Date Route Frequency Dose Code Code System Medication Instructions Home Meds Acyclovir 400MG Oral Tablet 08/27/2016 06/17/2022 ORAL DAILY 400 MILLIGRAMS 179597 RxNorm TAKE 400 MILLIGRAMS ORAL DAILY Synthroid 100MCG Oral Tablet 08/27/2016 Unknown BY MOUTH Q7AM 100 MICROGRAM 859601 RxNorm TAKE 100 MICROGRAM BY MOUTH Q7AM Eliquis 5MG Oral Tablet 08/27/2016 06/17/2022 BY MOUTH TWICE A DAY 5 MILLIGRAMS 2611280 RxNorm TAKE 5 MILLIGRAMS BY MOUTH TWICE A DAY Baclofen 10MG Oral Tablet 10/28/2017 Unknown ORAL NEEDED, DAILY 10 MILLIGRAMS 654443 RxNorm TAKE 10 MILLIGRAMS ORAL NEEDED, DAILY Gabapentin 300MG Oral Capsule 10/28/2017 06/17/2022 ORAL EVERY EVENING 300 MILLIGRAMS 715014 RxNorm TAKE 300 MILLIGRAMS ORAL EVERY EVENING Metoprolol Succinate 50MG Oral Tablet, Extended Release 10/28/2017 Unknown ORAL DAILY 150 MILLIGRAMS 167882 RxNorm TAKE 150 MILLIGRAMS ORAL DAILY OMEPRAZOLE 20MG ORAL TABLET, DELAYE 10/28/2017 05/29/2024 ORAL TWICE A DAY 20 MILLIGRAMS RxNorm TAKE 20 MILLIGRAMS ORAL TWICE A DAY SEROquel 25MG QUEtiapine Oral Tablet 10/28/2017 06/17/2022 ORAL BEDTIME 25 MILLIGRAMS 618509 RxNorm TAKE 25 MILLIGRAMS ORAL BEDTIME Simvastatin 40MG Oral Tablet 10/28/2017 06/17/2022 ORAL EVERY EVENING 40 MILLIGRAMS 813113 RxNorm TAKE 40 MILLIGRAMS ORAL EVERY EVENING VERAPAMIL ER 120 MG TABLET 10/28/2017 Unknown ORAL BEDTIME 120 MILLIGRAMS RxNorm TAKE 120 MILLIGRAMS ORAL BEDTIME predniSONE 20MG Oral Tablet 12/19/2023 05/29/2024 ORAL DAILY 1 TABLET 359326 RxNorm TAKE 3 TABLETS DAILY FOR 3 [...] ic ROSIE Right inguinal hernia repair 01/20 [id number] X2010 12/29/2025 ProGri p [id number] AR Problems Problem Start Date Resolved Date Status Code Code System HIGH CHOLESTEROL 07/31/2022 resolved 34895883 SN OMED-CT GERD 07/31/2022 resolved 652590438 SNOMED-CT HYPOTHYROIDISM 07/31/2022 resolved 08402016 SNOM ED-CT BPH 07/31/2022 resolved 800154873 SNOMED-CT MIGRAINE 07/31/2022 resolved 81750518 SNOMED-CT AFIB 07/31/2022 resolved 70561188 SNOMED-CT THROMBOCYTOPENIA 07/31/2022 resolved 226737724 SN OMED-CT Allergies and Adverse Reactions Allergy Substance Reaction Severity Start Date Concern Status Code Code System AMBIEN Altered Mental Status (SNOMED-CT: [id number]) Active 962117 RxNorm AMITRIPTYLINE HCL Moderate Active 704 RxNor m Plan of Treatment Symptoms 01/02/2021 CT HEAD W/WO CONTRAST 02/24/2023 CT HEAD W/O CONTRAST 02/24/2023 X-RAY 12/11/2021 CT ABDOMEN/PELVIS W/O CONTRAST 09/15/20 21 X-RAY 08/28/2021 Encounters Encounter Diagnosis Start Date Code Code Sys tem Chronic migraine without aur a, intractable, without status migrainosus 05/08/2021 SNOMED-CT Personal Care Team Section Performer Name Performer Role Active Date Inactive Da te
--- OUTSIDE RECORDS SUMMARY | 2024-07-24 17:34 | XMS_ITS | Encounter Summary ---
Author Organization [facility] Address [address] [place] [address] Care Team Providers Care County Director Name Role Phone Unknown, Provider Primary Care Provider [phone] Encounter Details Date Type Department Care Team (Latest Contact Info) Description 09/05/2014 12:47 EST - 09/05/2014 23:59 EST Hospital Encounter [address] [address] Unknown, Provider, Discharge Disposition: Home or Self Care Social History Tobacco Use Types Packs/Day Years Used Date Smoking Tobacco: Never Assessed Sex and Gender Information Value Date Recorded Sex Assigned at Not on file Gender Identity Male 03/27/2020 12:31 EDT Sexual Orientation Not on file documented as of this encounter Discharge Disposition Disposition Code Departure Means Destination Home or Self Snf documented in this encounter Plan of Treatment Not on file documented as of this encounter Visit Diagnoses Not on filedocumented in this encounter Care Teams County Director Relationship Specialty Start Date End Date Unknown, Provider, PCP - General 06/16/13 09/09/14 documented as of this encounter
--- OUTSIDE RECORDS SUMMARY | 2024-07-24 17:34 | XMS_ITS | Encounter Summary ---
Author Organization [facility] Address [address] [place] [address] Care Team Providers Care Children'S Book Author Name Role Phone Jabari Palacio DO Primary Care Provider Encounter Details Date Type Department Care Team (Latest Contact Info) Description 07/12/2015 9:51 EDT - 07/12/2015 23:59 EDT Hospital Encounter [address] [address] Unknown, Provider, Discharge Disposition: Home or Self Care Social History Tobacco Use Types Packs/Day Years Used Date Smoking Tobacco: Never Assessed Sex and Gender Information Value Date Recorded Sex Assigned at Not on file Gender Identity Male 03/27/2020 12:31 EDT Sexual Orientation Not on file documented as of this encounter Discharge Disposition Disposition Code Departure Means Destination Home or Self Intermediate documented in this encounter Plan of Treatment Not on file documented as of this encounter Visit Diagnoses Not on filedocumented in this encounter Care Teams Children'S Book Author Relationship Specialty Start Date End Date Jabari Palacio DO PCP - General 09/10/14 04/02/20 documented as of this encounter
--- OUTSIDE RECORDS SUMMARY | 2024-07-24 17:34 | XMS_ITS | Encounter Summary ---
Author Organization [facility] Address [address] [place] [address] Care Team Providers Care Packing And Wrapping Supervisor Name Role Phone Maggie Connor DO Primary Care Provider [phone] Encounter Details Date Type Department Care Team (Late st Contact Info) Description 07/12/2015 Results Only [facility] [phone] Maggie Connor, DO [address] [place] [address] Social History Tobacco Use Types Packs/Day Years [...] Date/Time Associated Diagnosis Comments SURGICAL PATHOLOGY Routine 07/12/2015 18 :42 EDT documented in this encounter Results * SURGICAL PATHOLOGY (07/12/2015 18:42 EDT) Pathology Report: SURGICAL PATHOLOGY REPORT Reports generated via electronic interface contain original data; however they are lacking the format of the original report. Caution should be taken when reading/interpret ing unformatted reports. Name: ? OVIDIO MINOR ? Accession #: ? [id number] ? : ? 1950 (Age: 65) ??M ? Collect Date: ? 07/12/2015 ? Location: ? [facility] ? Receive Date: ? 07/12/2015 ? Provider: MAGGIE CONNOR DO Copy to: CINDI KINCAID MD ? Final Pathologic Diagnosis: GASTROESOPHAGEAL JUNCTION, 40 CM, BIOPSY: - ??Squamous mucosa with mildly active reflux esophagitis. - ??No columnar epithelium present. - ??PAS stain is negative for fungal organisms. ?? Document reviewed and electronically signed by: Christina Plunkett MD Report ??Date: 07/17/2015 16:45 By the signature above, the attending physician certifies that he/she has personally conducted a gross and/or microscopic examination of the described specimens and rendered or confirmed the above diagnosis. Specimen(s) Received: GE junction 40 cm Clinical History: Esophagitis Gross Description: ? Received in formalin labelled with proper patient identification (initials R, J) and GE junction 40 cm are three pink-walker tissues (0.3 x 0.2 x 0.2 cm to 0.5 x 0.3 x 0.2 cm). Entirely submitted in 1. Christina Miranda 07/15/2015 10:48 AM End of Report [facility] 07/12/2015 18:4 2 EDT 07/12/2015 18:42 EDT Maggie Connor DO PATHOLOGY ORDERABLES [facility] [address] [place] [address] documented in this encounter Visit Diagnoses Not on filedocumented in this encounter Care Teams Packing And Wrapping Supervisor Relationship Specialty Start Date End Date Maggie Connor DO PCP - General 09/10/14 04/02/20 documented as of this encounter
--- OUTSIDE RECORDS SUMMARY | 2024-07-24 17:34 | XMS_ITS | Encounter Summary ---
Author Organization [facility] Address [address] [place] [address] Care Team Providers Care Bill Cutter Name Role Phone Unavailable Primary Care Provider Unavailabl e Encounter Details Date Type Department Care Team (Late st Contact Info) Description 04/25/2004 Results Only [facility] [address] [place] [address] Radha Mckeon MD [address] [place], [place] [address] Social History Tobacco Use Types Packs/Day Years [...] Date/Time Associated Diagnosis Comments SURGICAL PATHOLOGY Routine 04/25/2004 0:00 EDT documented in this encounter Results * SURGICAL PATHOLOGY (04/25/2004 0:00 EDT) Pathology Report: SURGICAL PATHOLOGY REPORT Reports generated via electronic interface contain original data; however they are lacking the format of the original report. Caution should be taken when reading/interpreti ng unformatted reports. Name: ? OVIDIO MINOR ? Accession #: ? [id number] ? : ? 1950 (Age: 53) ??M ? Collect Date: ? 04/25/2004 ? Location: ? [facility] ? Receive Date: ? 04/28/2004 ? Provider: RADHA MCKEON MD Copy to: ? Final Pathologic Diagnosis: ? Skin of arm, left upper, punch biopsy: - Seborrheic keratosis. Document reviewed and electronically signed by: Andrei Hicks MD Report ??Date: 04/29/2004 17:41 By the signature above, the attending physician certifies that he/she has personally conducted a gross and/or microscopic examination of the described specimens and rendered or confirmed the above diagnosis. Specimen(s) Received: ? 0.5 cm circumferential raised skin colored-white lesion L upper arm Clinical History: ? Lesion has changed (more raised and bumpy). ??R/O basal cell Gross Description: ? Received in formalin labelled Rohnert and lesion L upper arm is a punch biopsy measuring 0.5 cm in diameter and 0.3 cm in thickness of a 0.4 x 0.4 x 0.2 cm nodule. ??Bisected and submitted in one cassette. ??(Ani Lancaster)/[facility] End of Report [facility] ANDERS[facility] 04/25/2004 04/28/2004 15: 10 EDT Radha Mckeon MD PATHOLOGY ORDERABLES [facility] [address] [place] [address] documented in this encounter Visit Diagnoses Not on filedocumented in this encounter
--- OUTSIDE RECORDS SUMMARY | 2024-07-24 17:34 | XMS_ITS | Encounter Summary ---
Author Organization [facility] Address [address] [place] [address] Care Team Providers Care Rubber Heel And Sole Press Tender Name Role Phone Jabari Palacio DO Primary Care Provider [phone] Encounter Details Date Type Department Care Team (Latest Contact Info) Description 08/04/2016 13:49 EDT - 08/04/2016 23:59 EDT Hospital Encounter [address] [address] Unknown, Provider, Discharge Disposition: Home or Self Care Social History Tobacco Use Types Packs/Day Years Used Date Smoking Tobacco: Never Assessed Sex and Gender Information Value Date Recorded Sex Assigned at Not on file Gender Identity Male 03/27/2020 12:31 EDT Sexual Orientation Not on file documented as of this encounter Discharge Diagnoses Diagnosis Z01.89 Encounter for other specified special examinations-Z01.89[ICD-10-CM] documented in this encounter Discharge Disposition Disposition Code Departure Means Destination Home or Self Intermediate documented in this encounter Plan of Treatment Not on file documented as of this encounter Visit Diagnoses Not on filedocumented in this encounter Care Teams Rubber Heel And Sole Press Tender Relationship Specialty Start Date End Date Jabari Palacio DO PCP - General 09/10/14 04/02/20 documented as of this encounter
--- OUTSIDE RECORDS SUMMARY | 2024-07-24 17:34 | XMS_ITS ---
Author Organization Unknown Address [address] [place] [phone] Phone Care Team Providers Care Slubber Tender Name Role Phone JACINTA QUINONEZ Attending Unavailable CODI Arias Primary Unavailable Social History Type Status Start Date End Date Code Code Syst em Smoking History Never smoker (Never Smoked) [id number] SNOMED CT Sex Male Medications Medication Start Date End Date Route Frequency Dose Code Code System Medication Instructions Home Meds Acyclovir 400MG Oral Tablet 08/27/2016 06/17/2022 ORAL DAILY 400 MILLIGRAMS 459816 RxNorm TAKE 400 MILLIGRAMS ORAL DAILY Synthroid 100MCG Oral Tablet 08/27/2016 Unknown BY MOUTH Q7AM 100 MICROGRAM 659691 RxNorm TAKE 100 MICROGRAM BY MOUTH Q7AM Eliquis 5MG Oral Tablet 08/27/2016 06/17/2022 BY MOUTH TWICE A DAY 5 MILLIGRAMS 6558889 RxNorm TAKE 5 MILLIGRAMS BY MOUTH TWICE A DAY Baclofen 10MG Oral Tablet 10/28/2017 Unknown ORAL NEEDED, DAILY 10 MILLIGRAMS 365661 RxNorm TAKE 10 MILLIGRAMS ORAL NEEDED, DAILY Gabapentin 300MG Oral Capsule 10/28/2017 06/17/2022 ORAL EVERY EVENING 300 MILLIGRAMS 571934 RxNorm TAKE 300 MILLIGRAMS ORAL EVERY EVENING Metoprolol Succinate 50MG Oral Tablet, Extended Release 10/28/2017 Unknown ORAL DAILY 150 MILLIGRAMS 561420 RxNorm TAKE 150 MILLIGRAMS ORAL DAILY OMEPRAZOLE 20MG ORAL TABLET, DELAYE 10/28/2017 05/29/2024 ORAL TWICE A DAY 20 MILLIGRAMS RxNorm TAKE 20 MILLIGRAMS ORAL TWICE A DAY SEROquel 25MG QUEtiapine Oral Tablet 10/28/2017 06/17/2022 ORAL BEDTIME 25 MILLIGRAMS 097032 RxNorm TAKE 25 MILLIGRAMS ORAL BEDTIME Simvastatin 40MG Oral Tablet 10/28/2017 06/17/2022 ORAL EVERY EVENING 40 MILLIGRAMS 044174 RxNorm TAKE 40 MILLIGRAMS ORAL EVERY EVENING VERAPAMIL ER 120 MG TABLET 10/28/2017 Unknown ORAL BEDTIME 120 MILLIGRAMS RxNorm TAKE 120 MILLIGRAMS ORAL BEDTIME predniSONE 20MG Oral Tablet 12/19/2023 05/29/2024 ORAL DAILY 1 TABLET 763684 RxNorm TAKE 3 TABLETS DAILY FOR 3 [...] ic ROSIE Right inguinal hernia repair 01/20 [id number] X2010 12/29/2025 ProGri p [id number] AR Problems Problem Start Date Resolved Date Status Code Code System HIGH CHOLESTEROL 07/31/2022 resolved [id number] SN OMED-CT GERD 07/31/2022 resolved 802665265 SNOMED-CT HYPOTHYROIDISM 07/31/2022 resolved 08148027 SNOM ED-CT BPH 07/31/2022 resolved 376938011 SNOMED-CT MIGRAINE 07/31/2022 resolved 22794541 SNOMED-CT AFIB 07/31/2022 resolved 92867575 SNOMED-CT THROMBOCYTOPENIA 07/31/2022 resolved 048162748 SN OMED-CT Allergies and Adverse Reactions Allergy Substance Reaction Severity Start Date Concern Status Code Code System AMBIEN Altered Mental Status (SNOMED-CT: 896589976) Active 820328 RxNorm AMITRIPTYLINE HCL Moderate Active 704 RxNor m Plan of Treatment Symptoms 01/02/2021 CT HEAD W/WO CONTRAST 02/24/2023 CT HEAD W/O CONTRAST 02/24/2023 X-RAY 12/11/2021 CT ABDOMEN/PELVIS W/O CONTRAST 09/15/20 21 X-RAY 08/28/2021 Encounters Encounter Diagnosis Start Date Code Code Sys tem Chronic migraine without aur a, intractable, without status migrainosus 07/11/2021 SNOMED-CT Personal Care Team Section Performer Name Performer Role Active Date Inactive Da te
--- OUTSIDE RECORDS SUMMARY | 2024-07-24 17:34 | XMS_ITS ---
Author Organization Unknown Address [address] [place] [address] [phone] Phone Care Team Providers Care Editor Map Name Role Phone JACINTA QUINONEZ Attending Unavailable CODI Arias Primary Unavailable Social History Type Status Start Date End Date Code Code Syst em Smoking History Never smoker (Never Smoked) [id number] SNOMED CT Sex Male Medications Medication Start Date End Date Route Frequency Dose Code Code System Medication Instructions Home Meds Acyclovir 400MG Oral Tablet 08/27/2016 06/17/2022 ORAL DAILY 400 MILLIGRAMS 317495 RxNorm TAKE 400 MILLIGRAMS ORAL DAILY Synthroid 100MCG Oral Tablet 08/27/2016 Unknown BY MOUTH Q7AM 100 MICROGRAM 861281 RxNorm TAKE 100 MICROGRAM BY MOUTH Q7AM Eliquis 5MG Oral Tablet 08/27/2016 06/17/2022 BY MOUTH TWICE A DAY 5 MILLIGRAMS 3935460 RxNorm TAKE 5 MILLIGRAMS BY MOUTH TWICE A DAY Baclofen 10MG Oral Tablet 10/28/2017 Unknown ORAL NEEDED, DAILY 10 MILLIGRAMS 721736 RxNorm TAKE 10 MILLIGRAMS ORAL NEEDED, DAILY Gabapentin 300MG Oral Capsule 10/28/2017 06/17/2022 ORAL EVERY EVENING 300 MILLIGRAMS 284684 RxNorm TAKE 300 MILLIGRAMS ORAL EVERY EVENING Metoprolol Succinate 50MG Oral Tablet, Extended Release 10/28/2017 Unknown ORAL DAILY 150 MILLIGRAMS 588037 RxNorm TAKE 150 MILLIGRAMS ORAL DAILY OMEPRAZOLE 20MG ORAL TABLET, DELAYE 10/28/2017 05/29/2024 ORAL TWICE A DAY 20 MILLIGRAMS RxNorm TAKE 20 MILLIGRAMS ORAL TWICE A DAY SEROquel 25MG QUEtiapine Oral Tablet 10/28/2017 06/17/2022 ORAL BEDTIME 25 MILLIGRAMS 719500 RxNorm TAKE 25 MILLIGRAMS ORAL BEDTIME Simvastatin 40MG Oral Tablet 10/28/2017 06/17/2022 ORAL EVERY EVENING 40 MILLIGRAMS 679863 RxNorm TAKE 40 MILLIGRAMS ORAL EVERY EVENING VERAPAMIL ER 120 MG TABLET 10/28/2017 Unknown ORAL BEDTIME 120 MILLIGRAMS RxNorm TAKE 120 MILLIGRAMS ORAL BEDTIME predniSONE 20MG Oral Tablet 12/19/2023 05/29/2024 ORAL DAILY 1 TABLET 759870 RxNorm TAKE 3 TABLETS DAILY FOR 3 [...] ic ROSIE Right inguinal hernia repair 01/20 [id number] X2010 12/29/2025 ProGri p [id number] AR Problems Problem Start Date Resolved Date Status Code Code System HIGH CHOLESTEROL 07/31/2022 resolved 29028002 SN OMED-CT GERD 07/31/2022 resolved 644345213 SNOMED-CT HYPOTHYROIDISM 07/31/2022 resolved 20763306 SNOM ED-CT BPH 07/31/2022 resolved 911641467 SNOMED-CT MIGRAINE 07/31/2022 resolved 79513441 SNOMED-CT AFIB 07/31/2022 resolved 13136692 SNOMED-CT THROMBOCYTOPENIA 07/31/2022 resolved 962415743 SN OMED-CT Allergies and Adverse Reactions Allergy Substance Reaction Severity Start Date Concern Status Code Code System AMBIEN Altered Mental Status (SNOMED-CT: 825158419) Active 166802 RxNorm AMITRIPTYLINE HCL Moderate Active 704 RxNor m Plan of Treatment Symptoms 01/02/2021 CT HEAD W/WO CONTRAST 02/24/2023 CT HEAD W/O CONTRAST 02/24/2023 X-RAY 12/11/2021 CT ABDOMEN/PELVIS W/O CONTRAST 09/15/20 21 X-RAY 08/28/2021 Encounters Encounter Diagnosis Start Date Code Code Sys tem Chronic migraine without aur a, intractable, without status migrainosus 06/13/2021 SNOMED-CT Personal Care Team Section Performer Name Performer Role Active Date Inactive Da te
--- OUTSIDE RECORDS SUMMARY | 2024-07-24 17:34 | XMS_ITS | Encounter Summary ---
Author Organization [facility] Address [address] [place] [address] Care Team Providers Care Container Finishing Inspector Name Role Phone Unknown, Provider Primary Care Provider [phone] Encounter Details Date Type Department Care Team (Late st Contact Info) Description 09/05/2014 Results Only [facility] [phone] Maggie Connor, DO [address] [place] [address] Social History Tobacco Use Types [...] Date/Time Associated Diagnosis Comments SURGICAL PATHOLOGY Routine 09/05/2014 10 :40 EST documented in this encounter Results * SURGICAL PATHOLOGY (09/05/2014 10:40 EST) Pathology Report: SURGICAL PATHOLOGY REPORT Reports generated via electronic interface contain original data; however they are lacking the format of the original report. Caution should be taken when reading/interpretin g unformatted reports. Name: ? OVIDIO MINOR ? Accession #: ? [id number] ? : ? 1950 (Age: 64) ??M ? Collect Date: ? 09/05/2014 ? Location: ? [facility] ? Receive Date: ? 09/06/2014 ? Provider: MAGGIE CONNOR DO Copy to: CINDI KINCAID MD ? Final Pathologic Diagnosis: A. STOMACH, ANTRUM, BIOPSY: - ??Antral mucosa with reactive gastropathy. - ??No evidence of H. pylori on H&E. B. GASTROESOPHAGEAL JUNCTION, BIOPSY: - ??Squamous mucosa with reflux esophagitis. - ??Adjoining cardia type mucosa with reactive change; Negative for intestinal metaplasia or dysplasia. C. ESOPHAGUS, 35 CM, BIOPSY: - ??Squamous mucosa with no diagnostic alteration. Document reviewed and electronically signed by: ALETHA MEDRANO MD Report ??Date: 09/10/2014 09:03 By the signature above, the attending physician certifies that he/she has personally conducted a gross and/or microscopic examination of the described specimens and rendered or confirmed the above diagnosis. Specimen(s) Received: A. ??Gastric antrum B. ??GE junction C. ??Esophagus above GE junction 35 cm Clinical History: Globus sensation Gross Description: A. ?Received in formalin labelled with proper patient identification (initials R, J) and gastric antrum are three pink-walker tissues (0.2 x 0.1 x 0.1 cm to 0.7 x 0.3 x 0.2 cm). Entirely submitted in A1. B. ?Received in formalin labelled with proper patient identification (initials R, J) and GE junction are two pink-walker tissues (0.3 x 0.3 x 0.1 cm and 0.5 x 0.2 x 0.1 cm). Entirely submitted in B1. C. ?Received in formalin labelled with proper patient identification (initials R, J) and esophagus above GE junction 35 cm are two walker-white tissues (0.2 x 0.1 x 0.1 cm and 0.5 x 0.3 x 0.1 cm). Entirely submitted in C1. Valery Herring 09/06/2014 01:19 PM End of Report [facility] 09/05/2014 10:4 0 EST 09/06/2014 10:50 EST Maggie Connor DO PATHOLOGY ORDERABLES Performing Organization Address City/State/[facility] Co de Phone Number [facility] [address] [place] [address] documented in this encounter Visit Diagnoses Not on filedocumented in this encounter Care Teams Container Finishing Inspector Relationship Specialty Start Date End Date Unknown, Provider, PCP - General 06/16/13 09/09/14 documented as of this encounter
--- OUTSIDE RECORDS SUMMARY | 2024-07-24 17:34 | XMS_ITS ---
Author Organization Unknown Address [address] [place] [address] [phone] Phone Care Team Providers Care Pipe Processor Name Role Phone IBRAHIMA CASILLAS Attending Unavailable CODI Arias Primary Unavailable Social History Type Status Start Date End Date Code Code Syst em Smoking History Never smoker (Never Smoked) [id number] SNOMED CT Sex Male Medications Medication Start Date End Date Route Frequency Dose Code Code System Medication Instructions Home Meds Acyclovir 400MG Oral Tablet 08/27/2016 06/17/2022 ORAL DAILY 400 MILLIGRAMS 19721101 RxNorm TAKE 400 MILLIGRAMS ORAL DAILY Synthroid 100MCG Oral Tablet 08/27/2016 Unknown BY MOUTH Q7AM 100 MICROGRAM 673137 RxNorm TAKE 100 MICROGRAM BY MOUTH Q7AM Eliquis 5MG Oral Tablet 08/27/2016 06/17/2022 BY MOUTH TWICE A DAY 5 MILLIGRAMS 4031084 RxNorm TAKE 5 MILLIGRAMS BY MOUTH TWICE A DAY Baclofen 10MG Oral Tablet 10/28/2017 Unknown ORAL NEEDED, DAILY 10 MILLIGRAMS 736252 RxNorm TAKE 10 MILLIGRAMS ORAL NEEDED, DAILY Gabapentin 300MG Oral Capsule 10/28/2017 06/17/2022 ORAL EVERY EVENING 300 MILLIGRAMS 647678 RxNorm TAKE 300 MILLIGRAMS ORAL EVERY EVENING Metoprolol Succinate 50MG Oral Tablet, Extended Release 10/28/2017 Unknown ORAL DAILY 150 MILLIGRAMS 403089 RxNorm TAKE 150 MILLIGRAMS ORAL DAILY OMEPRAZOLE 20MG ORAL TABLET, DELAYE 10/28/2017 05/29/2024 ORAL TWICE A DAY 20 MILLIGRAMS RxNorm TAKE 20 MILLIGRAMS ORAL TWICE A DAY SEROquel 25MG QUEtiapine Oral Tablet 10/28/2017 06/17/2022 ORAL BEDTIME 25 MILLIGRAMS 175050 RxNorm TAKE 25 MILLIGRAMS ORAL BEDTIME Simvastatin 40MG Oral Tablet 10/28/2017 06/17/2022 ORAL EVERY EVENING 40 MILLIGRAMS 239296 RxNorm TAKE 40 MILLIGRAMS ORAL EVERY EVENING VERAPAMIL ER 120 MG TABLET 10/28/2017 Unknown ORAL BEDTIME 120 MILLIGRAMS RxNorm TAKE 120 MILLIGRAMS ORAL BEDTIME predniSONE 20MG Oral Tablet 12/19/2023 05/29/2024 ORAL DAILY 1 TABLET 701654 RxNorm TAKE 3 TABLETS DAILY FOR 3 [...] ic ROSIE Right inguinal hernia repair 01/20 [id number] X2010 12/29/2025 ProGri p [id number] AR Problems Problem Start Date Resolved Date Status Code Code System HIGH CHOLESTEROL 07/31/2022 resolved 90789786 SN OMED-CT GERD 07/31/2022 resolved 495397772 SNOMED-CT HYPOTHYROIDISM 07/31/2022 resolved 80314714 SNOM ED-CT BPH 07/31/2022 resolved 261094362 SNOMED-CT MIGRAINE 07/31/2022 resolved 44941219 SNOMED-CT AFIB 07/31/2022 resolved 55465192 SNOMED-CT THROMBOCYTOPENIA 07/31/2022 resolved 255309754 SN OMED-CT Allergies and Adverse Reactions Allergy Substance Reaction Severity Start Date Concern Status Code Code System AMBIEN Altered Mental Status (SNOMED-CT: 737705322) Active 624061 RxNorm AMITRIPTYLINE HCL Moderate Active 704 RxNor m Plan of Treatment Symptoms 01/02/2021 CT HEAD W/WO CONTRAST 02/24/2023 CT HEAD W/O CONTRAST 02/24/2023 X-RAY 12/11/2021 CT ABDOMEN/PELVIS W/O CONTRAST 09/15/20 21 X-RAY 08/28/2021 Encounters Encounter Diagnosis Start Date Code Code Sys tem Encounter for other orthopedic aftercare 06/27/2021 SNOMED-CT Personal Care Team Section Performer Name Performer Role Active Date Inactive Da te
--- OUTSIDE RECORDS SUMMARY | 2024-07-24 17:34 | XMS_ITS | Encounter Summary ---
Author Organization [facility] Address [address] [place] [address] Care Team Providers Care Cost Consultant Name Role Phone Jabari Palacio DO Primary Care Provider [phone] Radha Mckeon MD Primary Care Provider [phone] Encounter Details Date Type Department Care Team (Late st Contact Info) Description 10/04/2019 Lab Requisition [facility] Pathology & Laboratory Medicine - [address] [address] Unknown, Provider, Social History Tobacco Use Types Packs/Day Years [...] Name Priority Date/Time Associated Diagnosis Comments HEPATITIS B CORE ANTIBODY (TOTAL) Routine 10/04/2019 15:26 EST documented in this encounter Results * HEPATITIS B CORE ANTIBODY (TOTAL) (10/04/2019 15:26 EST) Hepatitis B Core Ab, Total Negative Negative 10/05/2019 11:39 EST [facility] Blood VENOUS BLOOD / Unknown 10/04/2019 15:26 EST 10/04/2019 20:59 EST Provider Unknown CHEMISTRY & BLOOD GA S ORDERABLES [facility] [address] [place] [address] documented in this encounter Visit Diagnoses Not on filedocumented in this encounter Care Teams Cost Consultant Relationship Specialty Start Date End Date Jabari Palacio DO PCP - General 09/10/14 04/02/20 Radha Mckeon MD [address] [place] [address] PCP - General 04/03/20 documented as of this encounter
--- OUTSIDE RECORDS SUMMARY | 2024-07-24 17:34 | XMS_ITS | Encounter Summary ---
Author Organization [facility] Address [address] [place] [address] Care Team Providers Care Decorator Store Name Role Phone Unavailable Primary Care Provider Unavailabl e Encounter Details Date Type Department Care Team (Late st Contact Info) Description 06/13/2013 Results Only [facility] Laboratory Services - [facility] ([facility] [address] [place], [place] [address] Radha Mckeon MD [address] [place], [place] [phone] Social History Tobacco Use Types Packs/Day Years [...] Date/Time Associated Diagnosis Comments SURGICAL PATHOLOGY Routine 06/13/2013 9:28 EDT documented in this encounter Results * SURGICAL PATHOLOGY (06/13/2013 9:28 EDT) Pathology Report: SURGICAL PATHOLOGY REPORT Reports generated via electronic interface contain original data; however they are lacking the format of the original report. Caution should be taken when reading/interpreti ng unformatted reports. Name: ? OVIDIO MINOR ? Accession #: ? [id number] ? : ? 1950 (Age: 63) ??M ? Collect Date: ? 06/13/2013 ? Location: ? [facility] ? Receive Date: ? 06/14/2013 ? Provider: RADHA MCKEON MD Copy to: ? Final Pathologic Diagnosis: SKIN OF WORSHIP, RIGHT, SHAVE BIOPSY: - Seborrheic keratosis, inflamed. ?? Microscopic Description: Orthohyperkeratosi s and focal parakeratosis thicken the stratum corneum. ??There is formation of horn pseudocysts. ??The epidermis is hyperplastic with acanthosis and papillomatosis. ??The keratinocytes have a basaloid appearance with squamous eddies in many areas. ??Within the dermis, there is a moderately dense lymphohistiocytic infiltrate. ??The infiltrate extends into the epidermis with concomitant vacuolar change and keratinocyte necrosis. ??(Dr. Retana)/ljn Document reviewed and electronically signed by: AKHIL RETANA MD Report ??Date: 06/15/2013 12:24 By the signature above, the attending physician certifies that he/she has personally conducted a gross and/or microscopic examination of the described specimens and rendered or confirmed the above diagnosis. Specimen(s) Received: Shave bx R synagogue, 2 pieces Clinical History: Lesion R temporal area-brown, slightly raised, fleshy, new; ? keratosis vs mole Gross Description: Received in formalin labelled with proper patient identification (initials R, J) and RT synagogue are two walker-acreo skin fragments (0.3 x 0.2 x 0.2 cm and 0.4 x 0.2 x 0.1 cm). ??Entirely submitted in 1. Rachel Wolf 06/14/2013 12:36 PM End of Report PATRICK ANDERSEN 06/13/2013 9:28 EDT 06/14/2013 9:28 EDT Radha Mckeon MD PATHOLOGY ORDERABLES [facility] [address] [place] [address] documented in this encounter Visit Diagnoses Not on filedocumented in this encounter
--- OUTSIDE RECORDS SUMMARY | 2024-07-24 17:34 | XMS_ITS | Encounter Summary ---
Author Organization [facility] Address [address] [place] [address] Care Team Providers Care Cotton Candy Maker Name Role Phone Jabari Palacio Primary Care Provider [phone] Reason for Visit * Reason Comments New Patient Visit Encounter Details Date Type Department Care Team (Latest Contact Info) Description 10/04/2019 14:00 EST Office Visit [facility] Adult Hematology & Oncology [facility] [place] [address] Kenisha Woods MBBS [address] [place] [address] [address] [place] [address] Thrombocytopenia (HCC-CMS) (Primary Dx) Social History Tobacco Use [...] Sign Reading Time Taken Comments Blood Pressure 118/80 10/04/2019 1346 EST Pulse 61 10/04/2019 1346 EST Temperature - - Respiratory Rate - - Oxygen Saturation 98% 10/04/2019 1346 EST Inhaled Oxygen Concentration - - Weight 69.4 kg (153 lb) 10/04/2019 1346 EST Height - - Body Mass Index - - documented in this encounter Progress Notes * Kenisha Woods MBBS - 10/04/2019 1400 EST HEMATOLOGY CONSULT NOTE REASON FOR REFERRAL: Thrombocytopenia REFERRAL REQUESTED BY: Dr. Palacio HISTORY OF PRESENT ILLNESS: Patient is a 69 y.o. male with past medical history significant for hypothyroidism, atrial fibrillation, hypertension, migraine, hyperlipidemia who was seen for annual physical examination on 09/13/2019. At that time, patient was noted to have thrombocytopenia with platelet count at 83. Ultrasound showed a small accessory spleen. He is being referred here for thrombocytopenia. Today, patient mentions that he approximately lost 32 pounds over the last year. He endorses good appetite. He denies previous history of thrombocytopenia. He denies recent infections/autoimmune disorders/changes in medications/intake of lthz-ilj-cyqhxxp herbal supplements. PMH PSH Past Medical History: Diagnosis Date ??? Hypertension ??? Thyroid disease Past Surgical History: Procedure Laterality Date ??? APPENDECTOMY ??? BACK SURGERY Anterior/posterior spine ??? CARPAL TUNNEL RELEASE ??? JOINT REPLACEMENT CURRENT MEDICATIONS Current Outpatient Medications Medication Sig Dispense Refill Last Dose ??? baclofen (LIORESAL) 10 mg tablet Take 10 mg by mouth daily as needed. 0 Taking ??? ELIQUIS 5 mg tablet Take 5 mg by mouth 2 times daily. 0 Taking ??? levothyroxine (SYNTHROID) 100 mcg tablet Take 100 mcg by mouth daily. 0 Taking ??? metoprolol XL (TOPROL-XL) 100 mg tablet Take 150 mg by mouth daily. 0 Taking ??? omeprazole (PRILOSEC) 20 mg capsule Take 20 mg by mouth 2 times daily. 0 Taking ??? simvastatin (ZOCOR) 10 mg tablet Take 10 mg by mouth at bedtime. 0 Taking ??? sumatriptan (IMITREX) 100 mg tablet Take 100 mg by mouth once. 1/2-1 tab. As needed for headache 1 Taking ??? triamcinolone (KENALOG) 0.1 % ointment Apply 0.1 Doses topically to affected area 3 times dailyas needed. 0 Taking ??? valACYclovir (VALTREX) 500 mg tablet Take 500 mg by mouth daily. 0 Taking ??? verapamil (CALAN-SR) 120 mg CR tablet Take 120 mg by mouth once. 0 Taking No current facility-administered medications for this visit. ALLERGIES Allergies not on file SOCIAL HISTORY FAMILY HISTORY Social History Tobacco Use ??? Smoking status: Former Smoker Packs/day: 2.50 Years: 16.00 Pack years: 40.00 Last attempt to quit: 1983 Years since quittin.9 ??? Smokeless tobacco: Never Used Substance Use Topics ??? Alcohol use: Not Currently ??? Drug use: Not Currently Social History Social History Narrative Lives in [place], [place]. 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 Family History Problem Relation Age of Onset ??? Heart Disease Mother ??? Heart Disease Father ??? Pancreatic Cancer Brother ??? Cancer Brother ??? Kidney Disease Maternal Aunt REVIEW OF SYSTEMS: A complete 10 point review of systems was performed and is otherwise negative. OBJECTIVE: Patient Vitals for the past 24 hrs: BP Pulse SpO2 Weight 10/04/19 1346 118/80 61 98 % 69.4 kg (153 lb) General appearance: Awake, alert, oriented x3, NAD. Skin: Brownish discoloration of skin of bilateral lower extremities, no petechiae or purpura seen. Head: Normocephalic, without obvious abnormality, atraumatic Eyes: conjunctivae/corneas clear. Neck: supple, symmetrical, trachea midline Lungs: clear to auscultation bilaterally Heart: Irregular Abdomen: soft, non-distended, deep palpation was not done as patient is complaining of back pain. Extremities: atraumatic, no edema, clubbing, cyanosis, brownish discoloration of skin of bilateral lower extremities. Neuro: No motor/sensory abnormalities. Data Review Complete Blood Count No results found for: ABO, ABORH, RH, WBC, RBC, HGB, HCT, MCV, MCH, MCHC, PLT,MPV, RDWCV Differential (Absolute) No results found for: DIFFTYPE, SEGSABS, NEUTROABS, ABSBAND, LYMPHSABS, MONOSABS, EOSABS, BASOSABS, METAABS, MYELOABS, PROMYELOABS, BLASTSABS, ABSOTHER, NRBC Basic Metabolic Panel No results found for: NA, K, CL, CO2, BUN, CREATININE, CALCGFR, CAION, CALCIUM, CALCCA, MG, PHOS, FLUOR Gastrointestinal No results found for: LDH, ALKPHOS, AST, ALT, GGT, AMMONIA, CONJBILI, UNCONJBILI, DELTABILI, BILIRUBIN, BILITOT, TBIL, TP, ALB, LABALBU, AGRATIO, GLOB, LIPASE, AMYLASE Platelet count from 12/22/2018: 79 Platelet count from 05/11/2019: 96 Platelet count from 07/25/2019: 83 Imaging: Ultrasound from 08/22/2019: Normal echogenicity of liver, normal spleen, isoechoic round mass in the hilum of spleen measuring 1.2 cm which may represent accessory spleen. Assessment: 69 y.o. male with past medical history significant for hypothyroidism, atrial fibrillation who has been having low-grade thrombocytopenia since December 2018. Differential diagnosis for thrombocytopenia include: Medications, hvcc-cal-opcfxed herbal supplements, recent infections, chronic infections including HIV, hepatitis, alcoholism, autoimmune disorders, malnutrition leading to B12 and folate deficiencies. I do not see any medications in his list that can explain thrombocytopenia. Patient denies taking any agvi-lga-dnwfafr herbal supplements. He did not have any recent infections. He is not an alcoholic thus alcoholism induced thrombocytopenia is unlikely. He does not have history of autoimmune disorders. Given history of 32 pound weight loss over the last year, it is reasonable to test for HIV which can cause thrombocytopenia. We will also test for hepatitis B and C. We will also check for nutritional deficiencies with B12 and folate level. We will send a peripheral blood smear for evaluation as well. In addition, patient has an accessory spleen on ultrasound which can explain mild thrombocytopenia. ITP can also not be ruled out. Plan: #1. Will check for hepatitis, HIV serologies, B12 and folate level. #2. Will send peripheral blood smear for evaluation. #3. Mild thrombocytopenia could be from accessory spleen seen on ultrasound/idiopathic thrombocytopenic purpura. #4. As his platelet count is greater than 50,000, it should be okay from our perspective to proceedwith surgery (patient today mentioned that he will be scheduled for right knee replacement in November 2019). #5. Recommend age appropriate cancer screening given weight loss. #6. We will schedule a follow-up appointment in 6 months from now with CBC prior to the visit. Kenisha Woods MD Clinical Practice Physician Hematology/ Medical Oncology [facility] CC: Primary Care Provider: Jabari Palacio [address] [place] [address] [place] [address] Fax: None * Mercy Dugan LPN - 10/04/2019 1400 EST Patient aware of lab results documented in this encounter Miscellaneous Notes * Result Encounter Note - Kenisha Woods MBBS - 10/04/2019 1400 EST The labs look normal. Thank you, Dr. Woods * Result Encounter Note - Kenisha Woods MBBS - 10/04/2019 1400 EST The labs look normal. No action needed. Thank you, Dr. Woods documented in this encounter Plan of Treatment Scheduled Orders Name Type Priority Associated Diagnoses Orde r Schedule COMPLETE BLOOD COUNT Lab Routine Thrombocytopenia (CMS-HCC) Ordered: 10/04/2019 documented as of this encounter Procedures Procedure Name Priority Date/Time Associated Diagnosis Comments HEPATITIS [place] W/[place] [facility] [place] 10/04/2019 15:26 EST Thrombocytopenia (HCC-CMS) HIV 1/2 AB, P24 AG [place] [facility] Routine 10/04/2019 15:26 EST Thrombocytopenia (HCC-CMS) COMPLETE BLOOD COUNT WITH DIFFERENTIAL (AUTO) Routine 10/04/2019 15:26 EST Thrombocytopenia (HCC-CMS) HEPATITIS B CORE ANTIBODY (TOTAL) Routine 10/04/2019 15:26 EST Thrombocytopenia (HCC-CMS) HEPATITIS B SURFACE ANTIGEN STAT 10/04/2019 15:26 EST Thrombocytopenia (HCC-CMS) FOLATE Routine 10/04/2019 15:26 EST Thrombocytopenia (HCC-CMS) VITAMIN B12 Routine 10/04/2019 15:26 EST Thrombocytopenia (HCC-CMS) documented in this encounter Results * HEPATITIS B CORE ANTIBODY (TOTAL) (10/04/2019 15:26 EST) Hepatitis B Core Ab, Total Negative Negative 10/05/2019 12:20 EST [facility] Comment: Test performed or referred by The [address] [address] 10/04/2019 15:2 6 EST 10/04/2019 15:27 EST Kenisha KENYON CHEMISTRY & BLOOD GAS ORDERABLES [facility] * HEPATITIS C AB W/REFLEX - [facility] (10/04/2019 15:26 EST) Pathologist [facility] HEPATITIS C AB W/REFLEX - [facility] Negative 10/04/2019 17:00 EST [facility] Comment:Expected Values: Neg ative. 10/04/2019 15:2 6 EST 10/04/2019 15:26 EST Narrative [facility] - 10/04/2019 17:00 EST Enter/Edit CPT and ICD codes? N Kenisha ATWOOD CHEMISTRY & BLOOD GAS ORDERABLES [facility] * HIV 1/2 AB, P24 AG - [facility] (10/04/2019 15:26 EST) HIV 1/2 AB, P24 AG - [facility] Negative Negative 10/04/2019 16:46 EST [facility] 10/04/2019 15:2 6 EST 10/04/2019 15:26 EST Kenisha ATWOOD CHEMISTRY & BLOOD GAS ORDERABLES [facility] * (ABNORMAL) COMPLETE BLOOD COUNT WITH DIFFERENTIAL (AUTO) (10/04/2019 15:26 EST) Pathologist [facility] ABSOLUTE NEUTROPHIL COUN - [facility] 4.9 2.2 - 8.85 10e3/uL 10/04/2019 15:54 [facility] BASO # - [facility] 0.02 0.01 - 0.11 10e/uL 10/04/2019 15:54 [facility] BASO % - [facility] 0 0 - 2 % 10/04/2019 15:54 [facility] EOS # - [facility] 0.04 0.03 - 0.61 10e3/ul 10/04/2019 15:54 [facility] EOS % - [facility] 1 0 - 5 % 10/04/2019 15:54 [facility] GRAN % - [facility] 78.2 40 - 80 % 10/04/2019 15:54 [facility] HEMATOCRIT - [facility] 42.1 39.5 - 50.2 % 10/04/2019 15:54 [facility] HEMOGLOBIN - [facility] 14.3 13.8 - 17.3 g/dl 10/04/2019 15:54 [facility] IG# - [facility] 0.01 0 - 0.7 10e3/uL 10/04/2019 15:54 [facility] IG% - [facility] 0.2 0 - 0.9 % 10/04/2019 15:54 [facility] LYMPH # - [facility] 0.6(L) 1.09 - 3.3 10e3/ul 10/04/2019 15:54 [facility] LYMPH% - [facility] 9.7(L) 20 - 40 % 10/04/2019 15:54 [facility] MEAN CORPUSCULAR HGB - [facility] 31.6 27.6 - 33.0 pg 10/04/2019 15:54 [facility] MEAN CORPUSCULAR HGB CONC - [facility] 34.0 32.8 - 36.4 g/dL 10/04/2019 15:54 [facility] MEAN CELL VOLUME - [facility] 92.9 81 - 95 fl 10/04/2019 15:54 [facility] MONO # - [facility] 0.7 0.1 - 0.8 10e3/uL 10/04/2019 15:54 [facility] MONO% - [facility] 11.0 0 - 12 % 10/04/2019 15:54 [facility] PLATELET COUNT 89(L) 141 - 377 10e3/ul 10/04/2019 17:05 [facility] RED BLOOD COUNT - [facility] 4.53 4.36 - 5.78 10e3/ul 10/04/2019 15:54 [facility] RED CELL DISTRI WIDTH - [facility] 11.9 <14.2 % 10/04/2019 15:54 [facility] WHITE BLOOD COUNT - [facility] 6.3 4.0 - 10.4 10e3/ul 10/04/2019 15:54 [facility] 10/04/2019 15:2 6 EST 10/04/2019 15:26 EST Kenisha KENYON HEMATOLOGY & PF4 O RDERABLES Performing Organization Address City/[facility]/ZIP Co de Phone Number [facility] * HEPATITIS B SURFACE ANTIGEN (10/04/2019 15:26 EST) Pathologist [facility] Hep B Surface Ag Negative 10/04/2019 17:00 [facility] Comment: Expected Values: ??Negative. The results of this assay can be falsely lowered due to the consumption of Biotin. Blood VENOUS BLOOD / Unknown 10/04/2019 15:26 EST 10/04/2019 15:26 EST Narrative [facility] - 10/04/2019 17:00 EST Enter/Edit CPT and ICD codes? N Kenisha KENYON CHEMISTRY & BLOOD GAS ORDERABLES [facility] * (ABNORMAL) FOLATE (10/04/2019 15:26 EST) Pathologist [facility] FOLIC ACID [facility] >20.00(H) 2.76- >20.0 ng/mL 10/05/2019 16:03 [facility] Comment: The results of this assay can be falsely elevated due to the consumption of Biotin. Blood VENOUS BLOOD / Unknown 10/04/2019 15:26 EST 10/04/2019 15:[address] [facility] CHEMISTRY & BLOOD GAS ORDERABLES [facility] * VITAMIN B12 (10/04/2019 15:26 EST) Pathologist [facility] VITAMIN B12 - [facility] 365 239 - 931 pg/mL 10/05/2019 16:02 EST [facility] Comment: The results of this assay can be falsely elevated due to the consumption of Biotin. Blood VENOUS BLOOD / Unknown 10/04/2019 15:26 EST 10/04/2019 15:[address] [facility] CHEMISTRY & BLOOD GAS ORDERABLES Performing Organization Address City/[facility]/ZIP Co de Phone Number [facility] documented in this encounter Visit Diagnoses Diagnosis Thrombocytopenia ([facility] Primary Thrombocytopenia, unspecified documented in this encounter Historical Medications * This list may reflect changes made after this encounter. Medication Sig Dispensed Refills Start Date End Date ELIQUIS 5 mg tablet Take 5 mg by mouth 2 times daily. 0 08/15/2019 baclofen (LIORESAL) 10 mg tablet Take 10 mg by mouth daily as needed. 0 09/26/2019 levothyroxine (SYNTHROID) 100 mcg tablet Take 100 mcg by mouth daily. 0 07/06/2019 metoprolol XL (TOPROL-XL) 100 mg tablet Take 150 mg by mouth daily. 0 08/12/2019 omeprazole (PRILOSEC) 20 mg capsule Take 20 mg by mouth 2 times daily. 0 07/25/2019 simvastatin (ZOCOR) 10 mg tablet Take 10 mg by mouth at bedtime. 0 09/02/2019 sumatriptan (IMITREX) 100 mg tablet Take 100 mg by mouth once. 1/2-1 tab. As needed for headache 1 09/26/2019 triamcinolone (KENALOG) 0.1 % ointment Apply 0.1 Doses topically to affected area 3 times daily as needed. 0 07/25/2019 valACYclovir (VALTREX) 500 mg tablet Take 500 mg by mouth daily. 0 08/12/2019 verapamil (CALAN-SR) 120 mg CR tablet Take 120 mg by mouth once. 0 08/12/2019 added in this encounter Care Teams Cotton Candy Maker Relationship Specialty Start Date End Date Jabari Palacio DO PCP - General 09/10/14 04/02/20 documented as of this encounter
--- NOTE | 2024-07-24 17:58 | DI.RAD_ITS ---
Exam(s) XR KNEE RT 3V AP,LAT,PAULA EXAM: XR KNEE RT 3V AP,LAT,PAULA CLINICAL HISTORY: fall 2 days ago; R wrist, R knee, low back pain. TECHNIQUE: 2D digital imaging was performed. COMPARISON: No exams were available for comparison FINDINGS: 3 views Satisfactory position alignment of the components of the right knee prosthesis. No fracture nor loos ening evident. No fracture seen in the proximal fibula. IMPRESSION: No fractures. Intact appearing right knee joint prosthesis components. DATA REPOSITORY: RADIATION DOSE DELIVERED:
--- NOTE | 2024-07-24 17:58 | DI.RAD_ITS ---
Exam(s) XR WRIST RT COMPL NAVICULAR EXAM: XR WRIST RT COMPL NAVICULAR CLINICAL HISTORY: fall 2 days ago; R wrist, R knee, low back pain. TECHNIQUE: 2D digital imaging was performed. COMPARISON: No exams were available for comparison FINDINGS: Four views. No acute fractures evident. No significant ulnar variance. Subtle irregularity in the distal scaphoid-navicular bone most probably related to the degenerative changes seen in the triscaph e joint. There is some mild degenerative changes noted in the 1st carpometacarpal joint. IMPRESSION: No acute fractures evident in the wrist. Some degenerative change noted at the triscaphe joint DATA REPOSITORY: RADIATION DOSE DELIVERED:
--- NOTE | 2024-07-24 17:58 | DI.CT_ITS ---
Exam(s) CT LUMBAR SPINE WO EXAM: CT LUMBAR SPINE WO CLINICAL HISTORY: fall 2 days ago; R wrist, R knee, low back pain. TECHNIQUE: Imaging Protocol: Axial computed tomography images with coronal and sagittal reformatted images were created and reviewed COMPARISON: No exams were available for comparison FINDINGS: Bones: No evidence of acute fracture nor listhesis.. Evidence of prior fusion surgery at L4-5 level . INDIVIDUAL LEVELS: T12-L1:No disc herniation nor canal stenosis. Facet joints unremarkable. No foraminal stenosis. L1-2: No disc herniation nor canal stenosis. Facet joints unremarkable. No foraminal stenosis. L2-3: Normal disc height. No disc herniation. There is mild-moderate central spinal canal stenosis which is mostly related to short AP dimensions of the pedicles and mild annular bulging. Mild facet arthropathy noted bilaterally. L3-4: Normal disc height. Mild symmetrical annular bulging. Mild central canal stenosis related to short AP dimensions the pedicles, annular bulging and facet arthropathy. L4-5: There is fusion across the disc space. No disc herniation also posteriorly. No disc herniati on. Central canal dimensions at this level are normal. L5-S1: No disc herniation or canal stenosis. No foraminal stenosis. The visualized sacroiliac joints and sacrum appear unremarkable. PARASPINAL SOFT TISSUES: Visualized paraspinal tissues appear unremarkable. IMPRESSION: 1. Previous L4-5 fusion surgery. 2. No evidence of fracture or listhesis. 3. Central spinal canal. At L2-3 and L3-4 levels, as described above. Report called by myself to ER provider 07/24/2024 6:15 p.m. RADIATION DOSE DELIVERED: 556.47mGy.cm Total DLP DATA REPOSITORY: All CT scans at this facility are submitted to the National Radiology Data Registry (NRDR) Dose Index Registry (DIR) with the [employer] (A[employer]). RADIATION OPTIMIZATION: All CT scans at this facility use at least one of these dose optimization te chniques: automated exposure control; mA and/or kV adjustment per patient size (includes targeted exa ms where dose is matched to clinical indication); or iterative reconstruction.
[2024-07-24 18:48] VITALS: BP 162/70; PULSE 60; RESP 16; O2SAT 99
== END 2024-07-24 18:49 | disposition home or self-care (01) ==
PROVIDERS: Emergency Provider Physician Assistant; PCP Family Medicine
DX: S83.91XA Sprain of unspecified site of right knee, initial encounter (principal); S63.501A Unspecified sprain of right wrist, initial encounter; M54.50 Low back pain, unspecified; W19.XXXA Unspecified fall, initial encounter; Z96.651 Presence of right artificial knee joint
CPT/HCPCS: 29125; 73562; 99284; 72131; 73110; 99283

== ENCOUNTER 2024-09-21 18:46 | Emergency (ER) | payer MEDICARE, BC, SELFPAY ==
[2024-09-21 18:48] VITALS: BP 154/72; PULSE 57; RESP 18; TEMP 36.1; O2SAT 97
--- NOTE | 2024-09-21 18:58 | ED.GENADUL_ITS ---
Discharge Plan Disposition Patient Disposition: Home Condition: Stable Discharge Details Clinical Impression: Fall from height of greater than 3 feet, Minor traumatic injury of head with normal mental status, Left shoulder pain, Contusion of rib on left side Primary Care Provider: Radha Mckeon V ED Provider: Lazaro Morgan Home Meds and New Rx's Prescriptions: Continued oxycodone 15 mg tablet 5 - 10 mg PO Q4H PRN lidocaine-prilocaine 2.5-2.5 % cream 1 applic topical ONCE PRN magnesium hydroxide [Milk of Magnesia] 400 mg/5 mL suspension 5 ml PO DAILY PRN polyethylene glycol 3350 17 gram/dose powder 17 g PO DAILY PRN simvastatin 10 mg tablet 10 mg PO DAILY sumatriptan succinate 100 mg tablet See Rx Instructions PO .COMPLEX Rx Instructions: take 1 tab at onset of headache; if no relief, may repeat 1 tab after at least 2 hrs; max = 2 tabs/24 hrs PO sumatriptan 20 mg/actuation spray,non-aerosol 20 mg intranasal ONCE PRN Rx Instructions: administer into one nostril as a single dose zonisamide 50 mg capsule 50 mg PO DAILY baclofen 10 mg Tablet 10 mg PO DAILY triamcinolone acetonide 0.1 % Ointment 1 applic TOPICAL TID fluticasone propionate [Flonase Allergy Relief] 50 mcg/actuation Murray,Suspension 1 spray INTRANASAL BID Centrum Silver 0.4-300-250 mg-mcg-mcg Tablet 1 tab PO DAILY Xarelto 20 mg Tablet 20 mg PO DAILY lamotrigine 25 mg tablet 50 mg PO BID metoprolol succinate [Toprol XL] 100 mg tablet extended release 24 hr 100 mg PO DAILY acyclovir 200 mg capsule 200 mg PO DAILY PRN Rx Instructions: as directed sennosides-docusate sodium [Colace 2-In-1] 8.6-50 mg tablet 2 tab-cap PO DAILY PRN diclofenac sodium 1 % gel 1 g topical DAILY PRN tamsulosin 0.4 mg capsule 0.4 mg PO DAILY valacyclovir 500 mg tablet 500 mg PO DAILY PRN finasteride 5 mg tablet 5 mg PO DAILY Emgality Pen 120 mg/mL pen injector 120 mg subcut .monthly acetaminophen 500 MG tablet 500 mg PO PRN PRN levothyroxine 200 MCG tablet 100 mcg PO DAILY verapamil [Calan] 120 MG tablet 120 mg PO HS Discharge Instructions Instructions: Bruised Rib, Shoulder Pain ED, Minor Head Injury, Adult ED Additional Instructions: You were seen in the emergency department for your fall from about 4 to 5 feet from a ladder, striking her head, your CT head and neck are negative for any intracranial bleeding or vertebral fracture, CT of your chest abdomen pelvis and spine showed no acute abnormalities, you likely have contusions of various musculoskeletal injuries, please take regular dose of Tylenol apply heat and ice to areas of pain, please return for any alteration of your neurological status, visual changes, dizziness, coordination difficulties, shortness of breath, developing fever or cough, or any other emergent concern. Incidentally you do have low platelets which has been your baseline. Referrals: Radha Mckeon MD [Primary Care Provider] - Discharge Data Discharge Date/Time-TO BE ENTERED AT DEPARTURE: 09/21/24 21:29 HPI General Date/Time Provider Initiated Documentation: 09/21/24 18:50 . HPI Narrative: 74 year-old male presents to ED today by POV/ambulating with a chief complaint of fall from a ladder about 5 feet high, striking his head on a railing, and having L shoulder and back pain with onset earlier this evening. Quality described as generalized headache, mid-back pain, L shoulder pain sharp, no radiation to LOC, fever, nausea or vomiting, visual changes, coordination difficulties, excessive drowsiness, endorses photophobia, denies bowel or urinary changes. Severity is described as 7-8/10. Palliating factors include nothing specific attempted. Provoking factors include nothing specific. Patient is anticoagulated on Xarelto. Related Data Home Medications ?Medication ?Instructions ?Recorded ?Confirmed acetaminophen 500 mg tablet 500 mg PO PRN PRN 01/16/17 07/24/24 levothyroxine 200 mcg tablet 100 mcg PO DAILY 01/16/17 07/24/24 verapamil 120 mg tablet (Calan) 120 mg PO HS 01/18/17 07/24/24 baclofen 10 mg tablet 10 mg PO DAILY 04/03/20 07/24/24 fluticasone propionate 50 1 spray intranasal BID 04/03/20 07/24/24 mcg/actuation nasal spray,suspension (Flonase Allergy Relief) gdohwbsa-akm-ozfkw acid 0.4 1 tab PO DAILY 06/03/20 09/23/24 mg-lycopene 300 mcg-lutein 250 mcg tablet (Centrum Silver) rivaroxaban 20 mg tablet (Xarelto) 20 mg PO DAILY 04/03/20 07/24/24 triamcinolone acetonide 0.1 % 1 applic topical TID 04/03/20 07/24/24 topical ointment lamotrigine 25 mg tablet 50 mg PO BID 08/12/20 07/24/24 finasteride 5 mg tablet 5 mg PO DAILY 04/09/23 07/24/24 galcanezumab-gnlm 120 mg/mL 120 mg subcut .monthly 04/09/23 07/24/24 subcutaneous pen injector (Emgality Pen) acyclovir 200 mg capsule 200 mg PO DAILY PRN 04/11/24 07/24/24 diclofenac sodium 1 % topical gel 1 g topical DAILY PRN 04/11/24 07/24/24 metoprolol succinate 100 mg 100 mg PO DAILY 04/11/24 07/24/24 tablet,extended release 24 hr (Toprol XL) sennosides 8.6 mg-docusate sodium 2 tab-cap PO DAILY PRN 04/11/24 07/24/24 50 mg tablet (Colace 2-In-1) tamsulosin 0.4 mg capsule 0.4 mg PO DAILY 04/11/24 07/24/24 valacyclovir 500 mg tablet 500 mg PO DAILY PRN 04/11/24 07/24/24 lidocaine-prilocaine 2.5 %-2.5 % 1 applic topical ONCE PRN 06/22/24 07/24/24 topical cream magnesium hydroxide 400 mg/5 mL 5 ml PO DAILY PRN 06/22/24 07/24/24 oral suspension (Milk of Magnesia) oxycodone 15 mg tablet 5 - 10 mg PO Q4H PRN 06/22/24 07/24/24 polyethylene glycol 3350 17 17 g PO DAILY PRN 06/22/24 07/24/24 gram/dose oral powder simvastatin 10 mg tablet 10 mg PO DAILY 06/22/24 07/24/24 sumatriptan 20 mg/actuation nasal 20 mg intranasal ONCE PRN 06/22/24 07/24/24 spray sumatriptan succinate 100 mg tablet See Rx Instructions PO .COMPLEX 06/22/24 07/24/24 zonisamide 50 mg capsule 50 mg PO DAILY 06/22/24 07/24/24 Allergies Allergy/AdvReac Type Severity Reaction Status Date / Time zolpidem (From Ambien) Allergy Severe altered Unverified 09/21/24 18:52 mental status amitriptyline AdvReac Other (See Verified 09/21/24 18:52 Comment) atorvastatin (From Lipitor) AdvReac Other (See Verified 09/21/24 18:52 Comment) flecainide AdvReac Other (See Verified 09/21/24 18:52 Comment) General Stated Complaint: Fall/Non TraumaCriteria ROSALIO: 3 Review of Systems All systems reviewed & are unremarkable except as noted in HPI and below Exam Narrative Exam Narrative: GENERAL APPEARANCE: Well-nourished, non-toxic, awake and alert, atraumatic, no acute distress. SKIN: Warm, pink, dry, intact, without rashes/lesions/ulcerations. HEAD: Normocephalic, atraumatic, no visible scalp hematoma, no Somers sign, normal hair distribution for gender/age. EYES: Normal conjunctiva, no exudates on lids/lashes. ENT: Nares patent, no circumoral cyanosis, no facial swelling, no periorbital ecchymosis NECK: Supple, trachea midline, painless cervical ROM, no midline vertebral tenderness or crepitus or step-offs. LUNGS/CHEST: Lungs CTA bilaterally-no rhonchi/rales/wheezes diffusely, non- labored respirations, normal A/P diameter, symmetrical expansion, no chest wall deformity HEART (CV/PV): Regular rate and rhythm without murmur, no peripheral edema, no JVD. ABDOMEN: Soft, non-distended, no guarding. MSK: Normal ROM, no swelling/deformity to bilateral UEs or LEs, moving all extremities without weakness, no cyanosis, spine midline without tenderness, normal curvature. Left lateral mid back pain under the left scapula, diffuse tenderness around the left shoulder without bony crepitus or swelling or deformity NEURO: Mental Status AAOx4 - alert to person, place, time, events No facial droop, no forehead involvement. Some neglect and instructions while attempting FNF Motor: No focal weakness - strength 5/5 in bilateral UEs and LEs, proximal and distal, symmetric. Sensory: sensation intact to light touch globally. Gait normal: patient ambulated without ataxia into ED room. PSYCH: euthymic, cooperative, pleasant, appropriate speech Course Vital Signs Vital signs: Vital Signs Temperature 36.1 C L 09/21/24 18:48 Pulse 57 L 09/21/24 18:48 Respiratory Rate 18 09/21/24 18:48 Blood Pressure 154/72 H 09/21/24 18:48 Pulse Oximetry 97 09/21/24 18:48 Temperature 36.1 C L 09/21/24 18:48 Temperature Source Temporal Artery Scan 09/21/24 18:48 Pulse 57 L 09/21/24 18:48 Respiratory Rate 18 09/21/24 18:48 Respiratory Effort Normal, Non-Labored 09/21/24 18:53 Blood Pressure 154/72 H 09/21/24 18:48 Blood Pressure Position Sitting 09/21/24 18:48 Pulse Oximetry 97 09/21/24 18:48 Oxygen Delivery Method Room Air 09/21/24 18:48 Oxygen Flow Rate 0 09/21/24 18:48 Pain Level 6 09/21/24 18:48 Medical Decision Making This dictation utilizes [id number] dictation software and may contain unedited grammatical errors. 74 year-old male presents to ED today by POV/ambulating with a chief complaint of fall from a ladder about 5 feet high, striking his head on a railing, and having L shoulder and back pain with onset earlier this evening. Quality described as generalized headache, mid-back pain, L shoulder pain sharp, no radiation to LOC, fever, nausea or vomiting, visual changes, coordination difficulties, excessive drowsiness, endorses photophobia, denies bowel or urinary changes. Severity is described as 7-8/10. Palliating factors include nothing specific attempted. Provoking factors include nothing specific. Patients' medical history: History of pacemaker, paroxysmal A-fib, history of CVA, partial motor seizures, vestibular dysfunction, thyroid disorder, chronic low back pain, thoracic back pain, peripheral neuropathy, thrombocytopenia, migraine. Family and social history: [ ]. Pertinent exam findings / vital signs include no major scalp hematoma, no Somers sign, no periorbital ecchymosis, no midline vertebral cervical tenderness, mild left-sided thoracic lateral back pain, diffuse left shoulder pain, no bruising or deformity or swelling, benign cardiopulmonary exam, mild neglect with FNF on following instructions for this test. Differential / pathologies of concern include intracranial hemorrhage, fracture, sprain or strain, contusion, rib fracture, vertebral fracture. Diagnostic studies of: -CBC, CMP, PT/PTT, lactate, lipase, alcohol level, type and screen, CT head without contrast, CT entire spine without contrast, CT chest abdomen pelvis with contrast. -CBC is unremarkable save for his chronic thrombocytopenia at baseline -INR slightly elevated at 1.3 -Lactate negative -No actionable abnormality of CMP -Lipase negative -Alcohol negative -Blood type O+ with negative antibody screen -CTs are negative for any intracranial hemorrhage, shows his old stroke, mild scalp hematoma -No acute abnormality of the spine -No abnormality of chest abdomen or pelvis Interventions of: -Patient declined Tylenol as he took some en route. ED Course/Assessment/Plan: 74-year-old male presents with a fall from 4 to 5 feet off a ladder striking his head on a railing, denies LOC, is on Xarelto, his labs are unremarkable has chronic thrombocytopenia and is in scan is negative for any significant trauma, the patient has neuro intact at baseline and comfortable with discharge home with Tylenol, I counseled strict return criteria for any alteration from baseline, failure to improve any of his back or shoulder pain for possible reevaluation or referral to orthopedics from primary care. Findings not consistent with intracranial hemorrhage, fracture, pulmonary contusion, hypoxic respiratory failure, blood loss. Disposition of Fall from height of greater than 3 feet, minor traumatic injury of head with normal mental status, left shoulder pain, contusion of rib on left side. Patient verbalized understanding of the plan and return to ED criteria and engaged in shared decision making. Medical Records Medical records reviewed: Yes I reviewed the patient's medical records. Imaging Data Radiologic Study: Attestation: I personally reviewed and interpreted this imaging study as follows: Imaging: CT Scan Radiologist's impression: Exam: CT Head Without Contrast Exam date and time: 09/21/2024 7:22 PM Age: 74 years old Clinical indication: Injury or trauma; Other: Fall from 6 feet, head, neck, L shoulder, mid-back; Work related; Blunt trauma (contusions or hematomas); Prior surgery; Surgery date: 6+ months; Surgery type: Spinal TECHNIQUE: Imaging protocol: Computed tomography of the head without contrast. COMPARISON: 1. MR HEAD^ROUTINE W WO 01/18/2017 6:[address] HEAD WITHOUT CONTRAST 01/17/2017 8:00 PM FINDINGS: Brain: Cerebral and cerebellar volume is appropriate for the patient's age. There are mild cerebral white matter hypodensities consistent with chronic small vessel ischemic change. Chronic small right superior temporal gyrus, right occipital, and lateral right frontal cortical infarctions are noted as well as small bilateral chronic cerebellar infarctions. No CT evidence of acute transcortical infarction. No acute intracranial hemorrhage, midline shift, or herniation. Cerebral ventricles: No ventriculomegaly. Paranasal sinuses: Visualized sinuses are unremarkable. No fluid levels. Mastoid air cells: Visualized mastoid air cells are well aerated. Bones: Unremarkable. No acute fracture. Soft tissues: Mild soft tissue swelling of the parasagittal posterior left parietal scalp. Vasculature: Mild calcifications of the intracranial internal carotid arteries. IMPRESSION: 1. Mild soft tissue swelling of the posterior left parietal scalp consistent with contusion or small hematoma. No underlying calvarial fracture. 2. No acute intracranial hemorrhage or infarction. 3. Small chronic cortical infarctions as well as mild chronic small vessel ischemic change as described above has occurred in the interval since 01/18/2017. PROCEDURE INFORMATION: Exam: CT Cervical Spine Without Contrast Exam date and time: 09/21/2024 7:22 PM Age: 74 years old Clinical indication: Injury or trauma; Other: Fall from 6 feet, head, neck, L shoulder, mid-back; Work related; Blunt trauma (contusions or hematomas); Prior surgery; Surgery date: 6+ months; Surgery type: Spinal TECHNIQUE: Imaging protocol: Computed tomography of the cervical spine without contrast. COMPARISON: No relevant prior studies available. FINDINGS: Bones: Status post ACDF at C4 through C6 with mature osseous fusion across these levels. The metallic hardware appears appropriate in position and intact, and there is no evidence of osseous lucency or fracture adjacent to the metallic hardware. No acute cervical spine fracture or subluxation. No aggressive osseous lesion is identified. No gross high-grade spinal canal stenosis. Lungs: Lung apices are normal. Soft tissues: Unremarkable. IMPRESSION: 1. No acute cervical spine fracture or subluxation. 2. Chronic postoperative changes of ACDF at C4 through C6. Dictated and Authenticated by: Alfred Ragsdale MD. Radiologic Study #2: Attestation: I personally reviewed and interpreted this imaging study as follows: Imaging: CT Scan Radiologist's impression: Exam: CT Thoracic Spine Without Contrast Exam date and time: 09/21/2024 7:26 PM Age: 74 years old Clinical indication: Injury or trauma; Other: Fall from 6 feet, head, neck, L shoulder, mid-b; Blunt trauma (contusions or hematomas); Prior surgery; Surgery date: 6+ months; Surgery type: Spinal TECHNIQUE: Imaging protocol: Computed tomography of the thoracic spine without contrast. COMPARISON: No relevant prior studies available. FINDINGS: Bones/joints: No acute fracture or malalignment. Soft tissues: Unremarkable. IMPRESSION: No acute fracture or malalignment. PROCEDURE INFORMATION: Exam: CT Lumbar Spine Without Contrast Exam date and time: 09/21/2024 7:26 PM Age: 74 years old Clinical indication: Injury or trauma; Other: Fall from 6 feet, head, neck, L shoulder, mid-b; Blunt trauma (contusions or hematomas); Prior surgery; Surgery date: 6+ months; Surgery type: Spinal TECHNIQUE: Imaging protocol: Computed tomography of the lumbar spine without contrast. COMPARISON: CT LUMBAR SPINE WO 07/24/2024 5:38 PM FINDINGS: Bones/joints: Changes of prior L5-S1 discectomy, with partial bony fusion. No acute fracture or malalignment. Spinal epidural space: Mild degenerative disc disease at the L3-L4 and L4-L5 levels, with mild disc space narrowing minimal posterior disc osteophyte complex formation, causing ventral thecal sac indentation. Kidneys and ureters: Bilateral simple renal cysts, for which no further evaluation necessary. Bilateral nephrolithiasis. Soft tissues: Unremarkable. IMPRESSION: No acute fracture or malalignment. Dictated and Authenticated by: Cullen Knight MD. Radiologic Study #3: Attestation: I personally reviewed and interpreted this imaging study as humberto oakess: Imaging: CT Scan Radiologist's impression: Exam: CT Chest With Contrast; Diagnostic Exam date and time: 09/21/2024 7:26 PM Age: 74 years old Clinical indication: Injury or trauma; Lower; Blunt trauma (contusions or hematomas) and other: Fall from 6 feet, head, neck, L shoulder, mid-b; Prior surgery; Surgery date: 6+ months; Surgery type: Hernia, appendectomy spinal TECHNIQUE: Imaging protocol: Diagnostic computed tomography of the chest with contrast. Contrast material: OMNIPAUE 350; Contrast volume: 100 ml; Contrast route: INTRAVENOUS (IV); COMPARISON: No relevant prior studies available. FINDINGS: Lungs: Normal. Pleural spaces: Unremarkable. No pneumothorax. No pleural effusion. Heart: Normal. Coronary arteries: Moderate three-vessel coronary artery atherosclerotic disease Lymph nodes: No pathologically-enlarged lymph nodes. Vasculature: See Coronary arteries finding. Bones/joints: No acute fracture. Soft tissues: Normal. IMPRESSION: No acute thoracic abnormality. PROCEDURE INFORMATION: Exam: CT Abdomen And Pelvis With Contrast Exam date and time: 09/21/2024 7:26 PM Age: 74 years old Clinical indication: Injury or trauma; Lower; Blunt trauma (contusions or hematomas) and other: Fall from 6 feet, head, neck, L shoulder, mid-b; Prior surgery; Surgery date: 6+ months; Surgery type: Hernia, appendectomy spinal TECHNIQUE: Imaging protocol: Computed tomography of the abdomen and pelvis with contrast. Contrast material: OMNIPAUE 350; Contrast volume: 100 ml; Contrast route: INTRAVENOUS (IV); COMPARISON: CT THORACIC LUMBAR SPINE REC 09/21/2024 7:26 PM FINDINGS: Liver: Normal. Gallbladder and biliary ducts: Normal. Pancreas: Normal. Spleen: Normal. Adrenal glands: Normal. No mass. Kidneys and ureters: Multiple bilateral simple renal cysts, for which no further evaluation necessary. Stomach and bowel: Moderate amount of stool throughout the colon, compatible with constipation. No obstruction. Appendix: Appendix surgically absent. Intraperitoneal space: Unremarkable. No free air. No significant fluid collection. Vasculature: Atherosclerotic disease of the abdominal aorta and iliac arteries. Lymph nodes: Unremarkable. No enlarged lymph nodes. Urinary bladder: Mild urinary bladder wall thickening, likely secondary to partially decompressed state, although cystitis is a consideration. Reproductive: Unremarkable as visualized. Bones/joints: Multilevel lumbar spine degenerative disc space narrowing and osteophyte formation. Changes of prior L5-S1 discectomy and fusion. Soft tissues: Normal. IMPRESSION: 1. No acute abdominopelvic traumatic abnormality. 2. Mild urinary bladder wall thickening, likely secondary to partially decompressed state, although cystitis is a consideration. 3. Moderate amount of stool throughout the colon, compatible with constipation. No obstruction. Dictated and Authenticated by: Cullen Knight MD. Lab Data Lab results reviewed: Yes I reviewed the patient's lab results. Labs: Laboratory Tests Range/Units 09/21/24 19:19 WBC (4.4-10.8) 10^3/uL 6.81 RBC (4.36-5.78) 10^6/uL 4.50 Hgb (13.5-17.5) g/dL 14.3 Hct (40.0-50.0) % 42.2 MCV (80-95) fL 94 MCH (27.0-33.0) pg 31.8 MCHC (32.0-36.0) % 33.9 RDW (11.8-14.1) % 11.9 Plt Count (130-400) 10^3/uL 93 L MPV (8.0-11.0) fL 11.3 H Immature Gran % % 0.1 Neutrophils % % 77.0 Lymphocytes % % 10.3 Monocytes % % 9.5 Eosinophils % % 2.5 Basophils % % 0.6 Nucleated RBC % (0.0-0.3) % 0.0 Absolute Neutrophils (1.2-6.7) 10^3/uL 5.24 Absolute Lymphocytes (1.2-3.4) 10^3/uL 0.70 L Absolute Monocytes (0.1-0.8) 10^3/uL 0.65 Absolute Eosinophils (0.0-0.7) 10^3/uL 0.17 Absolute Basophils (0.0-0.2) 10^3/uL 0.04 PT (9.1-11.1) sec 12.4 H INR (0.9-1.1) 1.3 H APTT (23.6-32.8) sec 35.6 H VBG Lactate (0.6-1.4) mmol/L 0.9 Sodium (136-145) mmol/L 142 Potassium (3.5-5.1) mmol/L 4.0 Chloride (98-107) mmol/L 109 H Carbon Dioxide (21.0-32.0) mmol/L 28.7 Anion Gap (3-11) mmol/L 4.3 BUN (7-18) mg/dL 28 H Creatinine (0.70-1.30) mg/dL 1.3 Est GFR (CKD-EPI 2020) (mL/min/1.73m2) 58.37 Glucose (74-106) mg/dL 114 H Calcium (8.5-10.1) mg/dL 9.2 Magnesium (1.8-2.4) mg/dL 1.9 Total Bilirubin (0.2-1.0) mg/dL 0.81 AST (15-37) U/L 37 ALT (16-63) U/L 22 Alkaline Phosphatase (46-116) U/L 99 Total Protein (6.4-8.2) g/dL 6.6 Albumin (3.4-5.0) g/dL 3.7 Lipase (<78) U/L 35 Ethyl Alcohol (<10) mg/dL < 3.0 ABO/Rh O Positive Antibody Screen NEGATIVE Quality:SDOH Health Related Social Needs: No Data to Display PFSH All Active Problems (Updated 09/21/24 @ 21:05 by ANDREE Castillo) Contusion of rib on left side (Acute) Left shoulder pain (Acute) Minor traumatic injury of head with normal mental status (Acute) Fall from height of greater than 3 feet (Acute) Chronic headache (Acute) Migraine headache with aura (Acute) Migraine headache without aura (Acute) Vertigo (Acute) Migraine aura without headache (Acute) Esophagitis determined by biopsy (Acute) Medical History (Updated 09/21/24 @ 21:05 by ANDREE Castillo) History of pacemaker Senile hyperkeratosis Hemospermia Pain in finger of right hand Trigeminal neuralgia Pain of right lower extremity Right arm pain Paroxysmal atrial fibrillation Sore throat [place] Adjustment disorder Asymptomatic microscopic hematuria Trigger finger of left hand CHACORTA positive History of chest pain Abdominal tenderness, right lower quadrant Inguinal hernia Rhinorrhea Disorder of skin CVA (cerebral vascular accident) Diverticulosis Headache Nonalcoholic fatty liver disease Left shoulder pain Dizziness Chronic insomnia Right shoulder pain Right hand pain Left foot pain Right knee pain Partial motor seizures Anticoagulation management encounter Migraine Disorder of vestibular function of right ear Left cervical radiculopathy Implantable loop recorder present Thyroid disorder Chronic low back pain Left arm pain Epistaxis Memory loss Bitten by rat Pain of right thumb Seborrheic keratosis Abnormal sputum Nausea and vomiting Diarrhea Thoracic back pain Depression Tobacco abuse Diverticulosis of colon Hyperlipidemia Chronic pain syndrome History of tobacco abuse Fatigue Fatty liver HSV (herpes simplex virus) infection Gastritis Preoperative examination Multiple nevi Hypothyroidism Ankle pain, right Family problems Memory impairment Nephrolithiasis Insomnia Thrombocytopenia Peripheral neuropathy Sinusitis Anticoagulated Trigger finger, right middle finger Hypertension Steatohepatitis GERD (gastroesophageal reflux disease) Chronic back pain Atrial fibrillation s/p ablation Arthritis Surgical History History of tonsillectomy and adenoidectomy H/O cardiac radiofrequency ablation S/P bunionectomy bilateral 2020 S/P spinal surgery 1993 L5-S1 fusion 1995 Lf-S1 repeat fusion 1998 hardware removal 05/19/2022 Cervical spine S/P carpal tunnel release R 1974, L 2003 Status post total right knee replacement 2009 with revision 2019; prior scope in 1963 Pyloric stenosis, congenital s/p surgery as infant History of appendectomy H/O hernia repair RIH repair 2023 Hx of colonoscopy History of cardiac radiofrequency ablation (RFA) elbow surgery Family History Father Heart disease Mother Heart disease Son Seizures Other Hyperlipidemia Hypertension Personal history of malignant neoplasm Social History Smoking/Tobacco Use Status: Former Tobacco Use Smoking risk assessment performed?: Yes Alcohol Intake: never Drug use: Never Substance use type: marijuana Household members: spouse Housing: house Number of Children: 3 current occupation: Furloughed due to COVID Pets and animals: Yes Pets and animals: dog(s) What is your relationship status?: Panel score (0-1 are the most socially isolated patients): 0 What type of physical activity do you participate in: walking and independent ambulation Seatbelt use: always Do you feel safe in your relationship?: Yes
--- NOTE | 2024-09-21 19:00 | DI.CT_ITS ---
Exam(s) CT THORACIC LUMBAR SPINE REC EXAM: CT THORACIC LUMBAR SPINE REC CLINICAL HISTORY: RECONS TECHNIQUE: COMPARISON: CT CT CHEST/ABD/PEL W from 09/21/2024 FINDINGS: THORACIC SPINAL COLUMN: No evidence of acute fracture or listhesis nor significant disc space narrowing. Facet joints unrema rkable. No facet malalignment. No compromise of the thoracic spinal canal. No incidental osseous l esions. LUMBOSACRAL SPINAL COLUMN: There is evidence of prior fusion surgery at L5-S1 level. No metallic hardware. There is fusion of both anterior and posterior osseous elements at this level. No evidence of acute fracture or listhesis no disc space narrowing above the level of the fusion alth ough there is anterior osseous lipping evident at L2-3 level. There are advanced degenerative changes facet joints L4-5 some degenerative fragmentation. There is m oderate central spinal canal stenosis at L3-4 and more severe spinal canal stenosis at L4-5 level (wh ich is 1 level above the fusion). IMPRESSION: No significant findings in the thoracic spinal column. No acute fractures in the lumbosacral spinal column. However, there is evidence of previous fusion snyder rgery at L5-S1 level and there is significant spinal canal stenosis at L3-4 and L4-5 levels.
--- NOTE | 2024-09-21 19:00 | DI.CT_ITS ---
Exam(s) CT CHEST/ABD/PEL W EXAM: CT CHEST/ABD/PEL W CLINICAL HISTORY: fall from 6 feet, head, neck, L shoulder, mid-back. TECHNIQUE: Imaging Protocol: Axial computed tomography images with coronal and sagittal reformatted images were created and reviewed CONTRAST MATERIAL: Intravenous: Omnipaque 350 Contrast volume:100 ml Oral: None COMPARISON: No exams were available for comparison FINDINGS: CHEST: LUNGS: No evidence of lung contusion, infiltrates, nor pleural effusions and no pneumothorax. No inc idental ominous pulmonary nodules.. MEDIASTINUM: No evidence of sternal fracture nor mediastinal hematoma. Visualized thyroid unremarkab le.No hilar nor mediastinal adenopathy evident. CARDIAC: There is a left anterior chest wall subcutaneous cardiac loop detector. Heart size is upper normal. There is no pericardial effusion.Caliber of the ascending thoracic aorta is within normal l imits. No dissection. Diameter of the descending thoracic aorta is mildly enlarged, measuring 3 cm. No dissection. OSSEOUS: No fractures. No significant osseous lesions.. ABDOMEN: There is no ascites. No evidence of bowel wall nor mesenteric hematoma. LIVER: Intact. No lacerations. No lesions. No dilated intrahepatic ducts. GALLBLADDER/BILIARY: No obvious gallbladder pathology. CBD is not dilated. PANCREAS: No evidence of pancreatic mass nor dilatation of the pancreatic duct. SPLEEN: Spleen is not enlarged. There are no intrasplenic lesions. Splenic and portal veins are sam nt. ADRENALS: There are no significant adrenal masses. KIDNEYS: There are benign cysts in both kidneys, the largest being in the inferior pole of the right kidney and measuring 4 cm.. The cysts do not require further workup. There are no solid renal siva s. There is a 3 millimeter nonobstructive calculus in left kidney noted. No hydronephrosis nor hydr oureter. ABDOMINAL AORTA: No significant aneurysmal dilatation nor stenosis iliac arteries. LYMPH NODES: There is no retroperitoneal nor paraaortic adenopathy. ABDOMINAL WALL: No evidence of significant anterior abdominal wall nor inguinal hernia. GI: There is abundant fecal material in the colon; possible constipation. There is no evidence of génesis wel obstruction, free air, nor abscess. PELVIS: LYMPH NODES: There is no intrapelvic nor inguinal adenopathy. GI: No evidence of appendicitis.No evidence of sigmoid diverticulitis. URINARY BLADDER: There is mild thickening of the anterior urinary bladder wall. There are no radiopa que calculi in the nondistended bladder lumen. REPRODUCTIVE: Prostate calcified but not enlarged. Scratch the OSSEOUS: Multilevel degenerative disc disease in the lumbar spine. Prior fusion surgery L5-S1. No h ardware. IMPRESSION: 1. No significant acute trauma sequelae in the chest, abdomen, and pelvis. 2. Mild thickening of the urinary bladder wall is noted cos obliquely related to cystitis or under di stension. 3. Abundant fecal material noted throughout the colon. May represent constipation. There is no evid ence of bowel obstruction. RADIATION DOSE DELIVERED: 644.06mGy.cm Total DLP DATA REPOSITORY: All CT scans at this facility are submitted to the National Radiology Data Registry (NRDR) Dose Index Registry (DIR) with the [employer] (ACR). RADIATION OPTIMIZATION: All CT scans at this facility use at least one of these dose optimization te chniques: automated exposure control; mA and/or kV adjustment per patient size (includes targeted exa ms where dose is matched to clinical indication); or iterative reconstruction.
--- NOTE | 2024-09-21 19:00 | DI.CT_ITS ---
Exam(s) CT HEAD CERVICAL SPINE WO EXAM: CT HEAD CERVICAL SPINE WO CLINICAL HISTORY: fall from 6 feet, head, neck, L shoulder, mid-back. TECHNIQUE: Imaging Protocol: Axial computed tomography images with coronal and sagittal reformatted images were created and reviewed COMPARISON: CT HEAD WITHOUT CONTRAST from 01/17/2017 FINDINGS: BRAIN: There are no skull fractures nor fluid in the visualized paranasal sinuses. There is no evidence of intracranial hemorrhage, mass effect, or shift of midline structures. There are no extra-axial fluid collections. The ventricles are not enlarged or shifted and there is no blo od within the ventricular system nor within the basal cisterns. Small lacunar infarct is noted in the posterior aspect of the right cerebellar hemisphere, not previo usly evident 2016. there is some chronic small-vessel white ischemic change. No obvious acute infarc ts evident. CERVICAL SPINE: There is an anterior fusion plate extending from C4 to C6. Hardware appears stable. There is affect north fusion at these levels. Posteriorly the facet joints are not fused and appear unremarkable. There is no evidence of fracture nor listhesis. No significant prevertebral soft tissue swelling. There is moderate chronic disc space narrowing at C6-7 level, 1 level below the fusion. Normal disc height evident at C3-4 which is 1 level above the fusion. No significant facet arthropathy. There is no significant facet joint malalignment. No significant osseous lesions evident. IMPRESSION: Chronic white matter findings but no acute intracranial findings on this noninfused CT scan of the br ain. No evidence of cervical spine fracture, malalignment, nor acute compromise of the cervical spinal can al. Anterior fusion hardware C4 through C6 which appears intact RADIATION DOSE DELIVERED: 1,202.41mGy.cm Total DLP DATA REPOSITORY: All CT scans at this facility are submitted to the National Radiology Data Registry (NRDR) Dose Index Registry (DIR) with the [employer] (ACR). RADIATION OPTIMIZATION: All CT scans at this facility use at least one of these dose optimization te chniques: automated exposure control; mA and/or kV adjustment per patient size (includes targeted exa ms where dose is matched to clinical indication); or iterative reconstruction.
[2024-09-21] MEDS: Normal Saline - Diluent 50 ML VIAL IJ (19:19)
[2024-09-21] MEDS: Omnipaque 350 MG/ML 100 ML BTL IJ (19:24)
[2024-09-21 19:28] LABS: Lactate 0.9 mmol/L (0.6-1.4)
[2024-09-21 19:34] LABS: Abs Immature Grans 0.01 10^3/uL (0.0-0.06); Absolute Basophil Count 0.04 10^3/uL (0.0-0.2); Absolute Eosinophil Count 0.17 10^3/uL (0.0-0.7); Absolute Monocyte Count 0.65 10^3/uL (0.1-0.8); Absolute Neutrophil Count 5.24 10^3/uL (1.2-6.7); Basophils % 0.6 %; Eosinophils % 2.5 %; HCT 42.2 % (40.0-50.0); HGB 14.3 g/dL (13.5-17.5); Immature Grans % 0.1 %; Lymphocytes % 10.3 %; MCH 31.8 pg (27.0-33.0); MCHC 33.9 % (32.0-36.0); MCV 94 fL (80-95); MPV 11.3 fL (8.0-11.0); Monocytes % 9.5 %; RDW 11.9 % (11.8-14.1); RDW-SD 41.1 fL; WBC 6.81 10^3/uL (4.4-10.8)
[2024-09-21 19:36] LABS: Platelet Count 93 10^3/uL (130-400)
[2024-09-21 19:42] LABS: INR 1.3 (0.9-1.1); PTT Activated 35.6 sec (23.6-32.8); Prothrombin Time 12.4 sec (9.1-11.1)
--- NOTE | 2024-09-21 19:55 | DI.VRAD_ITS ---
PROCEDURE INFORMATION: Exam: CT Chest With Contrast; Diagnostic Exam date and time: 09/21/2024 7:26 PM Age: 74 years old Clinical indication: Injury or trauma; Lower; Blunt trauma (contusions or hematomas) and other: Fall from 6 feet, head, neck, L shoulder, mid-b; Prior surgery; Surgery date: 6+ months; Surgery type: Hernia, appendectomy spinal TECHNIQUE: Imaging protocol: Diagnostic computed tomography of the chest with contrast. Contrast material: OMNIPAUE 350; Contrast volume: 100 ml; Contrast route: INTRAVENOUS (IV); COMPARISON: No relevant prior studies available. FINDINGS: Lungs: Normal. Pleural spaces: Unremarkable. No pneumothorax. No pleural effusion. Heart: Normal. Coronary arteries: Moderate three-vessel coronary artery atherosclerotic disease Lymph nodes: No pathologically-enlarged lymph nodes. Vasculature: See Coronary arteries finding. Bones/joints: No acute fracture. Soft tissues: Normal. IMPRESSION: No acute thoracic abnormality. PROCEDURE INFORMATION: Exam: CT Abdomen And Pelvis With Contrast Exam date and time: 09/21/2024 7:26 PM Age: 74 years old Clinical indication: Injury or trauma; Lower; Blunt trauma (contusions or hematomas) and other: Fall from 6 feet, head, neck, L shoulder, mid-b; Prior surgery; Surgery date: 6+ months; Surgery type: Hernia, appendectomy spinal TECHNIQUE: Imaging protocol: Computed tomography of the abdomen and pelvis with contrast. Contrast material: OMNIPAUE 350; Contrast volume: 100 ml; Contrast route: INTRAVENOUS (IV); COMPARISON: CT THORACIC LUMBAR SPINE REC 09/21/2024 7:26 PM FINDINGS: Liver: Normal. Gallbladder and biliary ducts: Normal. Pancreas: Normal. Spleen: Normal. Adrenal glands: Normal. No mass. Kidneys and ureters: Multiple bilateral simple renal cysts, for which no further evaluation necessary. Stomach and bowel: Moderate amount of stool throughout the colon, compatible with constipation. No obstruction. Appendix: Appendix surgically absent. Intraperitoneal space: Unremarkable. No free air. No significant fluid collection. Vasculature: Atherosclerotic disease of the abdominal aorta and iliac arteries. Lymph nodes: Unremarkable. No enlarged lymph nodes. Urinary bladder: Mild urinary bladder wall thickening, likely secondary to partially decompressed state, although cystitis is a consideration. Reproductive: Unremarkable as visualized. Bones/joints: Multilevel lumbar spine degenerative disc space narrowing and osteophyte formation. Changes of prior L5-S1 discectomy and fusion. Soft tissues: Normal. IMPRESSION: 1. No acute abdominopelvic traumatic abnormality. 2. Mild urinary bladder wall thickening, likely secondary to partially decompressed state, although cystitis is a consideration. 3. Moderate amount of stool throughout the colon, compatible with constipation. No obstruction. Dictated and Authenticated by: Cullen Knight MD. Ordering:WILFREDO Willis MD
--- NOTE | 2024-09-21 20:00 | DI.VRAD_ITS ---
PROCEDURE INFORMATION: Exam: CT Thoracic Spine Without Contrast Exam date and time: 09/21/2024 7:26 PM Age: 74 years old Clinical indication: Injury or trauma; Other: Fall from 6 feet, head, neck, L shoulder, mid-b; Blunt trauma (contusions or hematomas); Prior surgery; Surgery date: 6+ months; Surgery type: Spinal TECHNIQUE: Imaging protocol: Computed tomography of the thoracic spine without contrast. COMPARISON: No relevant prior studies available. FINDINGS: Bones/joints: No acute fracture or malalignment. Soft tissues: Unremarkable. IMPRESSION: No acute fracture or malalignment. PROCEDURE INFORMATION: Exam: CT Lumbar Spine Without Contrast Exam date and time: 09/21/2024 7:26 PM Age: 74 years old Clinical indication: Injury or trauma; Other: Fall from 6 feet, head, neck, L shoulder, mid-b; Blunt trauma (contusions or hematomas); Prior surgery; Surgery date: 6+ months; Surgery type: Spinal TECHNIQUE: Imaging protocol: Computed tomography of the lumbar spine without contrast. COMPARISON: CT LUMBAR SPINE WO 07/24/2024 5:38 PM FINDINGS: Bones/joints: Changes of prior L5-S1 discectomy, with partial bony fusion. No acute fracture or malalignment. Spinal epidural space: Mild degenerative disc disease at the L3-L4 and L4-L5 levels, with mild disc space narrowing minimal posterior disc osteophyte complex formation, causing ventral thecal sac indentation. Kidneys and ureters: Bilateral simple renal cysts, for which no further evaluation necessary. Bilateral nephrolithiasis. Soft tissues: Unremarkable. IMPRESSION: No acute fracture or malalignment. Dictated and Authenticated by: Cullen Knight MD. Ordering:WILFREDO Willis MD
[2024-09-21 20:01] LABS: ALT 22 U/L (16-63); AST 37 U/L (15-37); Albumin 3.7 g/dL (3.4-5.0); Alkaline Phosphatase 99 U/L (46-116); Anion Gap 4.3 mmol/L (3-11); BUN 28 mg/dL (7-18); Bilirubin, Total 0.81 mg/dL (0.2-1.0); CO2 28.7 mmol/L (21.0-32.0); CREATININE 1.3 mg/dL (0.70-1.30); Calcium 9.2 mg/dL (8.5-10.1); Chloride 109 mmol/L (98-107); Estimated GFR 58.37 (mL/min/1.73m2); Glucose 114 mg/dL (74-106); Lipase 35 U/L (<78); Magnesium 1.9 mg/dL (1.8-2.4); Sodium 142 mmol/L (136-145); Total Protein 6.6 g/dL (6.4-8.2)
[2024-09-21 20:02] LABS: ETHANOL BLOOD < 3.0 mg/dL (<10)
--- NOTE | 2024-09-21 20:04 | DI.VRAD_ITS ---
PROCEDURE INFORMATION: Exam: CT Head Without Contrast Exam date and time: 09/21/2024 7:22 PM Age: 74 years old Clinical indication: Injury or trauma; Other: Fall from 6 feet, head, neck, L shoulder, mid-back; Work related; Blunt trauma (contusions or hematomas); Prior surgery; Surgery date: 6+ months; Surgery type: Spinal TECHNIQUE: Imaging protocol: Computed tomography of the head without contrast. COMPARISON: 1. MR HEAD^ROUTINE W WO 01/18/2017 6:[address] HEAD WITHOUT CONTRAST 01/17/2017 8:00 PM FINDINGS: Brain: Cerebral and cerebellar volume is appropriate for the patient's age. There are mild cerebral white matter hypodensities consistent with chronic small vessel ischemic change. Chronic small right superior temporal gyrus, right occipital, and lateral right frontal cortical infarctions are noted as well as small bilateral chronic cerebellar infarctions. No CT evidence of acute transcortical infarction. No acute intracranial hemorrhage, midline shift, or herniation. Cerebral ventricles: No ventriculomegaly. Paranasal sinuses: Visualized sinuses are unremarkable. No fluid levels. Mastoid air cells: Visualized mastoid air cells are well aerated. Bones: Unremarkable. No acute fracture. Soft tissues: Mild soft tissue swelling of the parasagittal posterior left parietal scalp. Vasculature: Mild calcifications of the intracranial internal carotid arteries. IMPRESSION: 1. Mild soft tissue swelling of the posterior left parietal scalp consistent with contusion or small hematoma. No underlying calvarial fracture. 2. No acute intracranial hemorrhage or infarction. 3. Small chronic cortical infarctions as well as mild chronic small vessel ischemic change as described above has occurred in the interval since 01/18/2017. PROCEDURE INFORMATION: Exam: CT Cervical Spine Without Contrast Exam date and time: 09/21/2024 7:22 PM Age: 74 years old Clinical indication: Injury or trauma; Other: Fall from 6 feet, head, neck, L shoulder, mid-back; Work related; Blunt trauma (contusions or hematomas); Prior surgery; Surgery date: 6+ months; Surgery type: Spinal TECHNIQUE: Imaging protocol: Computed tomography of the cervical spine without contrast. COMPARISON: No relevant prior studies available. FINDINGS: Bones: Status post ACDF at C4 through C6 with mature osseous fusion across these levels. The metallic hardware appears appropriate in position and intact, and there is no evidence of osseous lucency or fracture adjacent to the metallic hardware. No acute cervical spine fracture or subluxation. No aggressive osseous lesion is identified. No gross high-grade spinal canal stenosis. Lungs: Lung apices are normal. Soft tissues: Unremarkable. IMPRESSION: 1. No acute cervical spine fracture or subluxation. 2. Chronic postoperative changes of ACDF at C4 through C6. Dictated and Authenticated by: Alfred Ragsdale MD. Ordering:WILFREDO Willis MD
[2024-09-21 20:35] VITALS: BP 151/77; PULSE 56; O2SAT 95
[2024-09-21 21:27] VITALS: BP 189/73; PULSE 70; O2SAT 99
== END 2024-09-21 21:29 | disposition home or self-care (01) ==
PROVIDERS: Emergency Provider Physician Assistant; PCP Family Medicine
DX: S09.8XXA Other specified injuries of head, initial encounter (principal); S20.212A Contusion of left front wall of thorax, initial encounter; M25.512 Pain in left shoulder; I48.0 Paroxysmal atrial fibrillation; E78.5 Hyperlipidemia, unspecified; Z95.0 Presence of cardiac pacemaker; Z98.1 Arthrodesis status; Z86.73 Personal history of transient ischemic attack (TIA), and cerebral infarction without residual deficits; Z79.01 Long term (current) use of anticoagulants; W11.XXXA Fall on and from ladder, initial encounter; Y93.89 Activity, other specified
CPT/HCPCS: 36415; 74177; 80053; 83690; 86850; 86900; 86901; 99285; 70450; 71260; 72125; 80320; 83605; 83735; 85025; 85610; 85730; J3490

== ENCOUNTER 2024-11-20 19:13 | Emergency (ER) | payer MEDICARE, BC, SELFPAY ==
[2024-11-20 19:17] VITALS: PULSE 55; RESP 18; TEMP 36.3; O2SAT 98
== END 2024-11-20 20:08 | disposition left against medical advice (07) ==
PROVIDERS: PCP Family Medicine
DX: Z53.21 Procedure and treatment not carried out due to patient leaving prior to being seen by health care provider (principal)

== ENCOUNTER 2025-02-06 19:29 | Outpatient (CLI) | payer MEDICARE, SELFPAY ==
--- NOTE | 2025-02-06 | DI.RAD_ITS ---
Exam(s) XR SHOULDER RT COMPLETE 2+V EXAM: XR SHOULDER RT COMPLETE 2+V CLINICAL HISTORY: Pain in right shoulder ICD-10: M25.511. TECHNIQUE: 2D digital imaging was performed of the right shoulder. Five images were obtained. AP, Grashey, Y-view and axillary views were obtained. COMPARISON: No exams were available for comparison FINDINGS: BONES: No acute fracture is present. No bony destructive lesion is seen. JOINTS: No dislocation present. Glenohumeral and acromioclavicular joints are well maintained. SOFT TISSUE: Normal. IMPRESSION: No acute abnormality. DATA REPOSITORY: RADIATION DOSE DELIVERED:
--- NOTE | 2025-02-06 20:20 | DI.VRAD_ITS ---
PROCEDURE INFORMATION: Exam: XR Right Shoulder Exam date and time: 02/06/2025 7:38 PM Age: 74 years old Clinical indication: Right; R shoulder pain TECHNIQUE: Imaging protocol: Radiologic exam of the right shoulder. Views: 2 or more views. COMPARISON: CT CHEST/ABD/PEL W 09/21/2024 7:26 PM FINDINGS: Bones/joints: Normal. Soft tissues: Normal. IMPRESSION: No acute findings. Dictated and Authenticated by: Nelson Mandujano MD. Orderin GUNNER WOLFE MD
== END 2025-02-06 19:49 ==
PROVIDERS: PCP Family Medicine; Visit Provider Nurse Practitioner Family
DX: M25.511 Pain in right shoulder (principal)
CPT/HCPCS: 73030

== ENCOUNTER 2025-05-22 16:20 | Emergency (ER) | payer MEDICARE, SELFPAY ==
[2025-05-22 16:29] VITALS: BP 135/88; PULSE 53; RESP 16; TEMP 36.7; O2SAT 98
--- NOTE | 2025-05-22 16:30 | DI.CT_ITS ---
Exam(s) CT HEAD WO EXAM: CT HEAD WO CLINICAL HISTORY: BAILEY; fell on thinners, hit chin; low risk. TECHNIQUE: Imaging Protocol: Axial computed tomography images with coronal and sagittal reformatted images were created and reviewed COMPARISON: CT HEAD WITHOUT CONTRAST from 01/17/[address] HEAD CERVICAL SPINE WO from 09/21/2024 FINDINGS: Ventricles and Extra axial spaces: Normal in size and morphology for the patient's age. Hemorrhage: None. Cerebral parenchyma: There is no evidence of an acute territorial infarct. There are areas of decreased attenuation in the white matter consistent with chronic microvascular ischemic disease. Midline shift: None. Brainstem/Cerebellum: Normal. Calvarium: Normal. Visualized Paranasal sinuses/Mastoids: Clear. Soft Tissues: Unremarkable. IMPRESSION: No acute intracranial process. RADIATION DOSE DELIVERED: 876.03mGy.cm Total DLP DATA REPOSITORY: All CT scans at this facility are submitted to the National Radiology Data Registry (NRDR) Dose Index Registry (DIR) with the [employer] (ACR). RADIATION OPTIMIZATION: All CT scans at this facility use at least one of these dose optimization techniques: automated exposure control; mA and/or kV adjustment per patient size (includes targeted exams where dose is matched to clinical indication); or iterative reconstruction.
--- NOTE | 2025-05-22 16:41 | W.ED.GENAD ---
Discharge Plan Disposition Patient Disposition: Home Condition: Stable Discharge Details Clinical Impression: Headache Primary Care Provider: Radha Mckeon V ED Provider: Lazaro Morgan Home Meds and New Rx's Prescriptions: Continued oxycodone 15 mg tablet 5 - 10 mg PO Q4H PRN lidocaine-prilocaine 2.5-2.5 % cream 1 applic topical ONCE PRN magnesium hydroxide [Milk of Magnesia] 400 mg/5 mL suspension 5 ml PO DAILY PRN polyethylene glycol 3350 17 gram/dose powder 17 g PO DAILY PRN simvastatin 10 mg tablet 10 mg PO DAILY sumatriptan succinate 100 mg tablet See Rx Instructions PO .COMPLEX Rx Instructions: take 1 tab at onset of headache; if no relief, may repeat 1 tab after at least 2 hrs; max = 2 tabs/24 hrs PO sumatriptan 20 mg/actuation spray,non-aerosol 20 mg intranasal ONCE PRN Rx Instructions: administer into one nostril as a single dose zonisamide 50 mg capsule 50 mg PO DAILY baclofen 10 mg Tablet 10 mg PO DAILY triamcinolone acetonide 0.1 % Ointment 1 applic TOPICAL TID fluticasone propionate [Flonase Allergy Relief] 50 mcg/actuation Joes,Suspension 1 spray INTRANASAL BID Centrum Silver 0.4-300-250 mg-mcg-mcg Tablet 1 tab PO DAILY Xarelto 20 mg Tablet 20 mg PO DAILY lamotrigine 25 mg tablet 50 mg PO BID metoprolol succinate [Toprol XL] 100 mg tablet extended release 24 hr 100 mg PO DAILY acyclovir 200 mg capsule 200 mg PO DAILY PRN Rx Instructions: as directed sennosides-docusate sodium [Colace 2-In-1] 8.6-50 mg tablet 2 tab-cap PO DAILY PRN diclofenac sodium 1 % gel 1 g topical DAILY PRN tamsulosin 0.4 mg capsule 0.4 mg PO DAILY valacyclovir 500 mg tablet 500 mg PO DAILY PRN finasteride 5 mg tablet 5 mg PO DAILY gabapentin 300 mg capsule 300 mg PO DAILY acetaminophen 500 MG tablet 500 mg PO PRN PRN levothyroxine 200 MCG tablet 100 mcg PO DAILY verapamil [Calan] 120 MG tablet 120 mg PO HS Discharge Instructions Instructions: Headache, Adult ED Additional Instructions: You were seen in the emergency department for your trip and fall earlier today striking her chin, you are on blood thinners so it is reasonable with your headache to get a CT scan which was negative for any intracranial bleeding, please take Tylenol for your headache, return for any neurologic abnormalities. Referrals: Radha Mckeon MD [Primary Care Provider, Medicine] Discharge Data Discharge Date/Time-TO BE ENTERED AT DEPARTURE: 05/22/25 18:58 HPI General Date/Time Provider Initiated Documentation: 05/22/25 16:21. HPI Narrative: 75 year-old male presents to ED today by POV/ambulating with a chief complaint of trip & fall while carrying some stuff in from the car this morning- having persistent headache. Quality described as headache all over- he struck his chin on the ground as well, no radiation to visual changes, nausea/vomiting, numbness/tingling, altered mentation. Severity is described as mild to moderate headache. Palliating factors include nothing specific attempted. Provoking factors include nothing specific. Patient is anticoagulated on Xarelto. Related Data Home Medications ?Medication ?Instructions ?Recorded ?Confirmed acetaminophen 500 mg tablet 500 mg PO PRN PRN 01/16/17 05/22/25 levothyroxine 200 mcg tablet 100 mcg PO DAILY 01/16/17 05/22/25 verapamil 120 mg tablet (Calan) 120 mg PO HS 01/18/17 05/22/25 baclofen 10 mg tablet 10 mg PO DAILY 04/03/20 05/22/25 fluticasone propionate 50 1 spray intranasal BID 04/03/20 05/22/25 mcg/actuation nasal spray,suspension (Flonase Allergy Relief) sbykunew-sta-gidkp acid 0.4 1 tab PO DAILY 04/03/20 05/22/25 mg-lycopene 300 mcg-lutein 250 mcg tablet (Centrum Silver) rivaroxaban 20 mg tablet (Xarelto) 20 mg PO DAILY 04/03/20 05/22/25 triamcinolone acetonide 0.1 % 1 applic topical TID 04/03/20 05/22/25 topical ointment lamotrigine 25 mg tablet 50 mg PO BID 08/12/20 05/22/25 finasteride 5 mg tablet 5 mg PO DAILY 04/09/23 05/22/25 acyclovir 200 mg capsule 200 mg PO DAILY PRN 04/11/24 05/22/25 diclofenac sodium 1 % topical gel 1 g topical DAILY PRN 04/11/24 05/22/25 metoprolol succinate 100 mg 100 mg PO DAILY 04/11/24 05/22/25 tablet,extended release 24 hr (Toprol XL) sennosides 8.6 mg-docusate sodium 2 tab-cap PO DAILY PRN 04/11/24 05/22/25 50 mg tablet (Colace 2-In-1) tamsulosin 0.4 mg capsule 0.4 mg PO DAILY 04/11/24 05/22/25 valacyclovir 500 mg tablet 500 mg PO DAILY PRN 04/11/24 05/22/25 lidocaine-prilocaine 2.5 %-2.5 % 1 applic topical ONCE PRN 06/22/24 05/22/25 topical cream magnesium hydroxide 400 mg/5 mL 5 ml PO DAILY PRN 06/22/24 05/22/25 oral suspension (Milk of Magnesia) oxycodone 15 mg tablet 5 - 10 mg PO Q4H PRN 06/22/24 05/22/25 polyethylene glycol 3350 17 17 g PO DAILY PRN 06/22/24 05/22/25 gram/dose oral powder simvastatin 10 mg tablet 10 mg PO DAILY 06/22/24 05/22/25 sumatriptan 20 mg/actuation nasal 20 mg intranasal ONCE PRN 06/22/24 05/22/25 spray sumatriptan succinate 100 mg tablet See Rx Instructions PO .COMPLEX 06/22/24 05/22/25 zonisamide 50 mg capsule 50 mg PO DAILY 06/22/24 05/22/25 gabapentin 300 mg capsule 300 mg PO DAILY 05/22/25 05/22/25 Allergies Allergy/AdvReac Type Severity Reaction Status Date / Time zolpidem (From Ambien) Allergy Severe altered Verified 05/22/25 16:26 mental status amitriptyline AdvReac Other (See Verified 05/22/25 16:26 Comment) atorvastatin (From Lipitor) AdvReac Other (See Verified 05/22/25 16:26 Comment) flecainide AdvReac Other (See Verified 05/22/25 16:26 Comment) General Stated Complaint: Fall/Non TraumaCriteria ROSALIO: 3 Review of Systems All systems reviewed & are unremarkable except as noted in HPI and below Exam Narrative Exam Narrative: GENERAL APPEARANCE: Well-nourished, non-toxic, awake and alert, atraumatic, no acute distress. SKIN: Warm, pink, dry, intact, without rashes/lesions/ulcerations. HEAD: Normocephalic, atraumatic- no Somers's sign, no periorbital ecchymosis, normal hair distribution for gender/age. EYES: Normal conjunctiva, no exudates on lids/lashes. ENT: Nares patent, no circumoral cyanosis, no facial swelling, very small abrasion to central chin, no TMJ tenderness/crepitus, no trismus NECK: Supple, trachea midline, painless cervical ROM, no midline vertebral tenderness/crepitus/stepoffs. LUNGS/CHEST: Non-labored respirations, normal A/P diameter, symmetrical expansion, no chest wall deformity HEART (CV/PV): No peripheral edema, no JVD. ABDOMEN: Soft, non-distended, no guarding. MSK: Normal ROM, no swelling/deformity to bilateral UEs or LEs, moving all extremities without weakness, no cyanosis, spine midline without tenderness, normal curvature. NEURO: Mental Status AAOx4 - alert to person, place, time, events No facial droop, no forehead involvement. Motor: No focal weakness - strength 5/5 in bilateral UEs and LEs, proximal and distal, symmetric. Sensory: sensation intact to light touch globally. Gait normal: patient ambulated without ataxia into ED room. PSYCH: euthymic, cooperative, pleasant, appropriate speech Course Vital Signs Vital signs: Vital Signs Temperature 36.7 C 05/22/25 16:29 Pulse 53 L 05/22/25 16:29 Respiratory Rate 16 05/22/25 16:29 Blood Pressure 135/88 05/22/25 16:29 Pulse Oximetry 98 05/22/25 16:29 Temperature 36.7 C 05/22/25 16:29 Temperature Source Oral 05/22/25 16:29 Pulse 53 L 05/22/25 16:29 Respiratory Rate 16 05/22/25 16:29 Blood Pressure 135/88 05/22/25 16:29 Blood Pressure Position Sitting 05/22/25 16:29 Pulse Oximetry 98 05/22/25 16:29 Oxygen Delivery Method Room Air 05/22/25 16:29 Oxygen Flow Rate 0 05/22/25 16:29 Pain Level 4 05/22/25 16:29 Medical Decision Making This dictation utilizes [id number] dictation software and may contain unedited grammatical errors. 75 year-old male presents to ED today by POV/ambulating with a chief complaint of trip & fall while carrying some stuff in from the car this morning- having persistent headache. Quality described as headache all over- he struck his chin on the ground as well, no radiation to visual changes, nausea/vomiting, numbness/tingling, altered mentation. Severity is described as mild to moderate headache. Palliating factors include nothing specific attempted. Provoking factors include nothing specific. Patients' medical history: Atrial fibrillation, pacemaker, hyper long-term anticoagulation, GERD, hypertension, chronic migraine. Family and social history: History of tobacco use. Pertinent exam findings / vital signs include neuro intact, no focal deficits, benign cardiopulmonary status, appears well with a tiny abrasion to his central chin without trismus or TMJ crepitus, no crepitus to entire mandible. Differential / pathologies of concern include abrasion, low likelihood ICH. Diagnostic studies of: -CT head without contrast-no acute pathology. Interventions of: -Patient declined Tylenol. ED Course/Assessment/Plan: 75-year-old male presents after tripping while bringing stuff in from the car earlier today having a minor abrasion to his chin, no evidence of any chin fracture with no trismus or TMJ tenderness or crepitus, he is on Xarelto and CT head was performed as he had presented to his regular provider and they recommended ED evaluation. It shows no intracranial hemorrhage he has no evidence of any significant concussion syndrome. Counseled on strict return criteria for any neurologic changes. Findings not consistent with ICH, significant concussion. Disposition of headache. Patient verbalized understanding of the plan and return to ED criteria and engaged in shared decision making. Medical Records Medical records reviewed: Yes I reviewed the patient's medical records. Imaging Data Radiologic Study: Attestation: I personally reviewed and interpreted this imaging study as follows: Imaging: CT Scan Radiologist's impression: EXAM: CT HEAD WO CLINICAL HISTORY: BAILEY; fell on thinners, hit chin; low risk. TECHNIQUE: Imaging Protocol: Axial computed tomography images with coronal and sagittal reformatted images were created and reviewed COMPARISON: CT HEAD WITHOUT CONTRAST from 01/17/[address] HEAD CERVICAL SPINE WO from 09/21/2024 FINDINGS: Ventricles and Extra axial spaces: Normal in size and morphology for the patient's age. Hemorrhage: None. Cerebral parenchyma: There is no evidence of an acute territorial infarct. There are areas of decreased attenuation in the white matter consistent with chronic microvascular ischemic disease. Midline shift: None. Brainstem/Cerebellum: Normal. Calvarium: Normal. Visualized Paranasal sinuses/Mastoids: Clear. Soft Tissues: Unremarkable. IMPRESSION: No acute intracranial process. PFSH All Active Problems (Updated 05/22/25 @ 18:38 by ANDREE Castillo) Headache (Acute) Chronic headache (Acute) Migraine headache with aura (Acute) Migraine headache without aura (Acute) Vertigo (Acute) Migraine aura without headache (Acute) Esophagitis determined by biopsy (Acute) Medical History (Updated 05/22/25 @ 18:38 by ANDREE Castillo) History of pacemaker Senile hyperkeratosis Hemospermia Pain in finger of right hand Trigeminal neuralgia Pain of right lower extremity Right arm pain Paroxysmal atrial fibrillation Sore throat [place] Adjustment disorder Asymptomatic microscopic hematuria Trigger finger of left hand CHACORTA positive History of chest pain Abdominal tenderness, right lower quadrant Inguinal hernia Rhinorrhea Disorder of skin CVA (cerebral vascular accident) Diverticulosis Headache Nonalcoholic fatty liver disease Left shoulder pain Dizziness Chronic insomnia Right shoulder pain Right hand pain Left foot pain Right knee pain Partial motor seizures Anticoagulation management encounter Migraine Disorder of vestibular function of right ear Left cervical radiculopathy Implantable loop recorder present Thyroid disorder Chronic low back pain Left arm pain Epistaxis Memory loss Bitten by rat Pain of right thumb Seborrheic keratosis Abnormal sputum Nausea and vomiting Diarrhea Thoracic back pain Depression Tobacco abuse Diverticulosis of colon Hyperlipidemia Chronic pain syndrome History of tobacco abuse Fatigue Fatty liver HSV (herpes simplex virus) infection Gastritis Preoperative examination Multiple nevi Hypothyroidism Ankle pain, right Family problems Memory impairment Nephrolithiasis Insomnia Thrombocytopenia Peripheral neuropathy Sinusitis Anticoagulated Trigger finger, right middle finger Hypertension Steatohepatitis GERD (gastroesophageal reflux disease) Chronic back pain Atrial fibrillation s/p ablation Arthritis Surgical History History of tonsillectomy and adenoidectomy H/O cardiac radiofrequency ablation S/P bunionectomy bilateral 2020 S/P spinal surgery 1993 L5-S1 fusion 1995 Lf-S1 repeat fusion 1998 hardware removal 05/19/2022 Cervical spine S/P carpal tunnel release R 1975, L 2003 Status post total right knee replacement 2009 with revision 2019; prior scope in 1964 Pyloric stenosis, congenital s/p surgery as History of appendectomy H/O hernia repair RI repair 2023 Hx of colonoscopy History of cardiac radiofrequency ablation (RFA) elbow surgery Family History Father Heart disease Mother Heart disease Son Seizures Other Hyperlipidemia Hypertension Personal history of malignant neoplasm Social History Smoking/Tobacco Use Status: Former Tobacco Use Smoking risk assessment performed?: Yes Alcohol Intake: never Drug use: Never Substance use type: marijuana Household members: spouse Housing: house Number of Children: 3 current occupation: Furloughed due to COVID Pets and animals: Yes Pets and animals: dog(s) What is your relationship status?: Panel score (0-1 are the most socially isolated patients): 0 What type of physical activity do you participate in: walking and independent ambulation Seatbelt use: always Do you feel safe in your relationship?: Yes
[2025-05-22 18:58] VITALS: BP 159/78; PULSE 55; RESP 16; TEMP 36.6; O2SAT 100
== END 2025-05-22 18:58 | disposition home or self-care (01) ==
PROVIDERS: Emergency Provider Physician Assistant; PCP Family Medicine
DX: R51.9 Headache, unspecified (principal)
CPT/HCPCS: 99284; 99283; 70450

== ENCOUNTER 2025-05-25 19:22 | Emergency (ER) | payer MEDICARE, SELFPAY ==
[2025-05-25 19:26] VITALS: BP 182/70; PULSE 58; RESP 18; TEMP 36.7; O2SAT 97
--- NOTE | 2025-05-25 19:45 | DI.CT_ITS ---
Exam(s) CT THORACIC LUMBAR SPINE WO EXAM: CT THORACIC LUMBAR SPINE WO CLINICAL HISTORY: fall, L. back pain and r. side hip. TECHNIQUE: Imaging Protocol: Axial, coronal and sagittal images were reconstructed from the chest abdomen and pelvic CT utilizing bone algorithm. COMPARISON: CR LUMBAR SPINE COMPLETE from 04/05/[address] THORACIC LUMBAR SPINE REC from 09/21/2024 FINDINGS: Thoracic spine: Bones: No acute fractures are seen. The alignment of the spine is normal including the cervicothoracic junction. Mild degenerative disc changes greater at the lower thoracic levels. Soft tissues: The soft tissues of the chest are unremarkable. No large disk herniations are identified. Lumbar spine: Bones: No acute fracture is identified. Degenerative disc changes and facet degenerative changes are present. Discs: Mild disc bulging at L2-3. Mild facet degenerative changes. Mild central canal stenosis. Mild disc bulging at L3-4. Facet degenerative changes and ligamentous hypertrophy combine to produce mild central canal stenosis. Mild bilateral neural foraminal narrowing. Postsurgical changes at the L 4 5 disc level sacralization of L5.. Alignment: Normal. Soft tissues: No paraspinal hematoma. IMPRESSION: No acute abnormality of the thoracic or lumbar spine. Postsurgical and degenerative changes. The preliminary [facility] report was reviewed. RADIATION DOSE DELIVERED: Total DLP Total DLP DATA REPOSITORY: All CT scans at this facility are submitted to the National Radiology Data Registry (NRDR) Dose Index Registry (DIR) with the [employer] (ACR). RADIATION OPTIMIZATION: All CT scans at this facility use at least one of these dose optimization techniques: automated exposure control; mA and/or kV adjustment per patient size (includes targeted exams where dose is matched to clinical indication); or iterative reconstruction.
--- NOTE | 2025-05-25 19:45 | DI.RAD_ITS ---
Exam(s) XR KNEE RT 3V AP,LAT,PAULA EXAM: XR KNEE RT 3V AP,LAT,PAULA CLINICAL HISTORY: fall, R. pain, hx spine surg and knee replacement. TECHNIQUE: 2D digital imaging was performed. Three views. COMPARISON: CR XR KNEE RT 3V AP,LAT,PAULA from 07/24/2024 FINDINGS: BONES: No acute fracture is present. No bony destructive lesion is seen. JOINTS: The knee prosthesis is normally aligned. No joint effusion is seen. SOFT TISSUE: Normal. IMPRESSION: Stable appearance of knee prosthesis. No evidence of fracture. DATA REPOSITORY: RADIATION DOSE DELIVERED:
--- NOTE | 2025-05-25 19:45 | DI.RAD_ITS ---
Exam(s) XR PELVIS AP EXAM: XR PELVIS AP CLINICAL HISTORY: fall, R. pain, hx spine surg and knee replacement. TECHNIQUE: 2D digital imaging was performed. Single AP view. COMPARISON: CR LUMBAR SPINE COMPLETE from 04/05/2017 FINDINGS: BONES: Exam is limited by overlying stool and bowel gas. The sacrum is mainly obscured. No acute fracture is present. No bony destructive lesion is seen. JOINTS: No dislocation present. No joint space narrowing is present. SOFT TISSUE: Large quantity of stool. IMPRESSION: Limited exam. No acute abnormality. DATA REPOSITORY: RADIATION DOSE DELIVERED:
[2025-05-25] MEDS: Acetaminophen 500 MG TAB 1000 MG PO (20:00)
--- NOTE | 2025-05-25 20:00 | DI.RAD_ITS ---
Exam(s) XR ELBOW LT COMPLETE EXAM: XR ELBOW LT COMPLETE CLINICAL HISTORY: fall, pain and swelling. TECHNIQUE: 2D digital imaging was performed. Three views. COMPARISON: No exams were available for comparison FINDINGS: BONES: No acute fracture is present. No bony destructive lesion is seen. JOINTS: The elbow is normally aligned. No joint effusion is seen. No significant degenerative changes. SOFT TISSUE: Normal. IMPRESSION: Unremarkable radiographs of the left elbow. The preliminary [facility] report was reviewed. DATA REPOSITORY: RADIATION DOSE DELIVERED:
[2025-05-25] MEDS: Lidocaine 5% Patch 1 PATCH TP (20:01)
--- NOTE | 2025-05-25 20:38 | W.ED.GENAD ---
Discharge Plan Disposition Patient Disposition: Home Condition: Stable Discharge Details Clinical Impression: Fall, Pain of right knee after injury, Low back pain Primary Care Provider: Radha Mckeon V ED Provider: Shirin Morales Home Meds and New Rx's Prescriptions: No Action oxycodone 15 mg tablet 5 - 10 mg PO Q4H PRN lidocaine-prilocaine 2.5-2.5 % cream 1 applic topical ONCE PRN magnesium hydroxide [Milk of Magnesia] 400 mg/5 mL suspension 5 ml PO DAILY PRN polyethylene glycol 3350 17 gram/dose powder 17 g PO DAILY PRN simvastatin 10 mg tablet 10 mg PO DAILY sumatriptan succinate 100 mg tablet See Rx Instructions PO .COMPLEX Rx Instructions: take 1 tab at onset of headache; if no relief, may repeat 1 tab after at least 2 hrs; max = 2 tabs/24 hrs PO sumatriptan 20 mg/actuation spray,non-aerosol 20 mg intranasal ONCE PRN Rx Instructions: administer into one nostril as a single dose zonisamide 50 mg capsule 50 mg PO DAILY baclofen 10 mg Tablet 10 mg PO DAILY triamcinolone acetonide 0.1 % Ointment 1 applic TOPICAL TID fluticasone propionate [Flonase Allergy Relief] 50 mcg/actuation [place],Suspension 1 spray INTRANASAL BID Centrum Silver 0.4-300-250 mg-mcg-mcg Tablet 1 tab PO DAILY Xarelto 20 mg Tablet 20 mg PO DAILY lamotrigine 25 mg tablet 50 mg PO BID metoprolol succinate [Toprol XL] 100 mg tablet extended release 24 hr 100 mg PO DAILY acyclovir 200 mg capsule 200 mg PO DAILY PRN Rx Instructions: as directed sennosides-docusate sodium [Colace 2-In-1] 8.6-50 mg tablet 2 tab-cap PO DAILY PRN diclofenac sodium 1 % gel 1 g topical DAILY PRN tamsulosin 0.4 mg capsule 0.4 mg PO DAILY valacyclovir 500 mg tablet 500 mg PO DAILY PRN finasteride 5 mg tablet 5 mg PO DAILY gabapentin 300 mg capsule 300 mg PO DAILY acetaminophen 500 MG tablet 500 mg PO PRN PRN levothyroxine 200 MCG tablet 100 mcg PO DAILY verapamil [Calan] 120 MG tablet 120 mg PO HS Discharge Instructions Instructions: Low Back Pain (DC) Additional Instructions: You were seen in the emergency department today for evaluation after a fall. In our department a full physical examination and had imaging studies that did not show any bleeding in your brain, fractures in your spine or your hips, nor fractures in your knee. All of your hardware looks to be appropriately placed, but the location and severity of your knee pain is concerning for potential cartilage or ligamentous injury. For this reason we have provided you with a brace and recommend that you follow-up with your orthopedist that [facility] in the next week or so for reevaluation. I recommend that you continue to use your at home oxycodone as needed. Please use therapeutic dosing of Tylenol (acetaminophen) & Advil (ibuprofen) in an alternating fashion as follows: Take 1000mg of Tylenol every 6 hours without missing doses- that is 4 times per day. [place] in between the Tylenol doses, take 600mg of Advil also on a 6 hour schedule, that is also 4 times per day. With this strategy, you will be taking something for fever/pain as often as every 3 hours. The daily maximum dosing of Tylenol is 4000mg, and the daily maximum dosing of Advil is 2400mg. Please note that some common cold medications & prescription pain medications may contain acetaminophen and you need to read OTC drug labels and factor that in to maximum daily doses. You should also purchase [id number] lidocaine patches, 4%, and placed them over the area of maximal pain. Please follow-up with your primary care provider in the next few days to discuss this visit and any symptoms that change, worsen, or persist. Thank you for allowing us to be part of your care. HPI General Mode of arrival: ambulatory. Date/Time Provider Initiated Documentation: 05/25/25 19:24. Limitations to Documentation: no limitations. Information obtained by: patient and old records reviewed. HPI Narrative: This is a 75-year-old male patient with a past medical history significant for paroxysmal atrial fibrillation, on Xarelto, history of CVA, CONNORS, GERD, and some chronic low back pain, presenting for evaluation after a fall. The patient reports that he was carrying some bags outside and did not see a piece of firewood, causing him to trip. He states that his knee hyperextended and twisted behind him, he fell backwards landing directly on his back. He is not sure if he hit his head, but does not think he lost consciousness. He is experiencing pain in the left side of his right knee, which was previously replaced at [facility]. He is also experiencing right sided and mid lower back pain and pain into his right hip. He was not able to get up on his own but once he was assisted up he was able to ambulate, states that ambulation worsens the pain in his hip specifically. He has also noted some mild swelling in his left elbow. Prior to this event he was in his normal state of health. He has not taken any medications for management of his pain. Related Data Home Medications ?Medication ?Instructions ?Recorded ?Confirmed acetaminophen 500 mg tablet 500 mg PO PRN PRN 01/16/17 05/25/25 levothyroxine 200 mcg tablet 100 mcg PO DAILY 01/16/17 05/25/25 verapamil 120 mg tablet (Calan) 120 mg PO HS 01/18/17 05/25/25 baclofen 10 mg tablet 10 mg PO DAILY 04/03/20 05/25/25 fluticasone propionate 50 1 spray intranasal BID 04/03/20 05/25/25 mcg/actuation nasal spray,suspension (Flonase Allergy Relief) [id number] acid 0.4 1 tab PO DAILY 04/03/20 05/25/25 mg-lycopene 300 mcg-lutein 250 mcg tablet (Centrum Silver) rivaroxaban 20 mg tablet (Xarelto) 20 mg PO DAILY 04/03/20 05/25/25 triamcinolone acetonide 0.1 % 1 applic topical TID 04/03/20 05/25/25 topical ointment lamotrigine 25 mg tablet 50 mg PO BID 08/12/20 05/25/25 finasteride 5 mg tablet 5 mg PO DAILY 04/09/23 05/25/25 acyclovir 200 mg capsule 200 mg PO DAILY PRN 04/11/24 05/25/25 diclofenac sodium 1 % topical gel 1 g topical DAILY PRN 04/11/24 05/25/25 metoprolol succinate 100 mg 100 mg PO DAILY 04/11/24 05/22/25 tablet,extended release 24 hr (Toprol XL) sennosides 8.6 mg-docusate sodium 2 tab-cap PO DAILY PRN 04/11/24 05/25/25 50 mg tablet (Colace 2-In-1) tamsulosin 0.4 mg capsule 0.4 mg PO DAILY 04/11/24 05/25/25 valacyclovir 500 mg tablet 500 mg PO DAILY PRN 04/11/24 05/25/25 lidocaine-prilocaine 2.5 %-2.5 % 1 applic topical ONCE PRN 06/22/24 05/25/25 topical cream magnesium hydroxide 400 mg/5 mL 5 ml PO DAILY PRN 06/22/24 05/25/25 oral suspension (Milk of Magnesia) oxycodone 15 mg tablet 5 - 10 mg PO Q4H PRN 06/22/24 05/25/25 polyethylene glycol 3350 17 17 g PO DAILY PRN 06/22/24 05/25/25 gram/dose oral powder simvastatin 10 mg tablet 10 mg PO DAILY 06/22/24 05/25/25 sumatriptan 20 mg/actuation nasal 20 mg intranasal ONCE PRN 06/22/24 05/25/25 spray sumatriptan succinate 100 mg tablet See Rx Instructions PO .COMPLEX 06/22/24 05/25/25 zonisamide 50 mg capsule 50 mg PO DAILY 06/22/24 05/22/25 gabapentin 300 mg capsule 300 mg PO DAILY 05/22/25 05/25/25 Allergies Allergy/AdvReac Type Severity Reaction Status Date / Time zolpidem (From Ambien) Allergy Severe altered Verified 05/22/25 16:26 mental status amitriptyline AdvReac Other (See Verified 05/22/25 16:26 Comment) atorvastatin (From Lipitor) AdvReac Other (See Verified 05/22/25 16:26 Comment) flecainide AdvReac Other (See Verified 05/22/25 16:26 Comment) General Stated Complaint: Fall/Non TraumaCriteria ROSALIO: 3 Exam Narrative Exam Narrative: Gen: awake and alert, in no apparent distress. Appears well nourished. HEENT: PERRL, EOMs full and without nystagmus. External ears and nose normal, mucous membranes moist. Scalp atraumatic Neck: Supple, full range of motion, no observable masses. No cervical spine tenderness or step-offs Lungs: No increased work of breathing CV: Heart with regular rate and rhythm. Strong and symmetrical radial pulses. Abdomen: Soft, nondistended, non-tender to palpation. No rigidity, rebound tenderness, or guarding. MSK: No step-offs but tenderness is noted from the lower T-spine down into the L-spine. Pelvis is stable to AP compression but right sided hip is tender. He has no deformity or tenderness to the femur but the affected right knee is tender over the lateral aspect. He has no palpable joint effusion, no deformity, but his tenderness prevents adequate testing of his collateral ligaments due to guarding and rigidity. Upper extremities atraumatic with the exception of some mild swelling of the left elbow without limitation of range of motion or overlying skin changes. Skin: No rashes or lesions to visualized skin. Normal color, warm, and dry. Neuro: Cranial nerves II-XII intact and symmetrical bilaterally. 5/5 strength in all muscle groups x4 extremities within the limitations of the patient's pain. No sensory deficits. Brisk capillary refill and strong pulses distal to all injured areas. Ambulates with antalgic gait. Psych: Appropriate for situation. Course Vital Signs Vital signs: Vital Signs Temperature 36.7 C 05/25/25 19:26 Pulse 58 L 05/25/25 19:26 Respiratory Rate 18 05/25/25 19:26 Blood Pressure 182/70 H 05/25/25 19:26 Pulse Oximetry 97 05/25/25 19:26 Temperature 36.7 C 05/25/25 19:26 Temperature Source Oral 05/25/25 19:26 Pulse 58 L 05/25/25 19:26 Respiratory Rate 18 05/25/25 19:26 Blood Pressure 182/70 H 05/25/25 19:26 Pulse Oximetry 97 05/25/25 19:26 Oxygen Delivery Method Room Air 05/25/25 19:26 Oxygen Flow Rate 0 05/25/25 19:26 Pain Level 8 05/25/25 19:26 Medical Decision Making This is a 75-year-old male patient presenting for evaluation after a fall. Differential includes but is not limited to intracranial hemorrhage, skull fracture, spine fractures. Considered hip and pelvis fracture, femur fracture, knee injuries including periprosthetic fracture, prosthetic hardware displacement, ligamentous or cartilaginous injury. Considered elbow injuries including fracture, with dislocation, sprain/strain, contusion. The patient's examination is less concerning for severe intra thoracic or abdominal injuries. His fall was mechanical in nature not preceded by any medical complaints such as chest pain, dizziness, or loss of consciousness. We will obtain imaging to include CT of the brain, CT and L-spine. Will obtain x-ray imaging of the affected pelvis, fever, and knee on the right side, and the left elbow. I will provide the patient with Tylenol, ibuprofen, and a Lidoderm patch. - Independently reviewed the patient's imaging, which notes no intracranial hemorrhage, skull fracture, spine fracture, or osseous injury to the pelvis, right femur and knee, and left elbow. I am most concerned for contusions, sprains, and strains. The potential for ligamentous involvement of the knee, as well as his history of prosthetic replacement I did place him on a knee immobilizer, which she tolerated well was able to ambulate on afterwards with improvement in his stability. I counseled the patient on wearing the immobilizer, follow-up with his orthopedic doctor, and multimodal pain management. At this time, the patient has had a full medical evaluation and is safe for discharge to home. They are hemodynamically stable, ambulatory, and tolerating PO. They are understanding of the follow-up plan and return precautions. They left our facility without incident. Shirin Morales MD [facility] All Active Problems (Updated 05/25/25 @ 22:32 by Shirin Morales MD) Low back pain (Acute) Pain of right knee after injury (Acute) Fall (Acute) Headache (Acute) Chronic headache (Acute) Migraine headache with aura (Acute) Migraine headache without aura (Acute) Vertigo (Acute) Migraine aura without headache (Acute) Esophagitis determined by biopsy (Acute) Medical History (Updated 05/25/25 @ 22:32 by Shirin Morales MD) History of pacemaker Senile hyperkeratosis Hemospermia Pain in finger of right hand Trigeminal neuralgia Pain of right lower extremity Right arm pain Paroxysmal atrial fibrillation Sore throat [place] Adjustment disorder Asymptomatic microscopic hematuria Trigger finger of left hand CHACORTA positive History of chest pain Abdominal tenderness, right lower quadrant Inguinal hernia Rhinorrhea Disorder of skin CVA (cerebral vascular accident) Diverticulosis Headache Nonalcoholic fatty liver disease Left shoulder pain Dizziness Chronic insomnia Right shoulder pain Right hand pain Left foot pain Right knee pain Partial motor seizures Anticoagulation management encounter Migraine Disorder of vestibular function of right ear Left cervical radiculopathy Implantable loop recorder present Thyroid disorder Chronic low back pain Left arm pain Epistaxis Memory loss Bitten by rat Pain of right thumb Seborrheic keratosis Abnormal sputum Nausea and vomiting Diarrhea Thoracic back pain Depression Tobacco abuse Diverticulosis of colon Hyperlipidemia Chronic pain syndrome History of tobacco abuse Fatigue Fatty liver HSV (herpes simplex virus) infection Gastritis Preoperative examination Multiple nevi Hypothyroidism Ankle pain, right Family problems Memory impairment Nephrolithiasis Insomnia Thrombocytopenia Peripheral neuropathy Sinusitis Anticoagulated Trigger finger, right middle finger Hypertension Steatohepatitis GERD (gastroesophageal reflux disease) Chronic back pain Atrial fibrillation s/p ablation Arthritis Surgical History History of tonsillectomy and adenoidectomy H/O cardiac radiofrequency ablation S/P bunionectomy bilateral 2020 S/P spinal surgery 1993 L5-S1 fusion 1995 Lf-S1 repeat fusion 1998 hardware removal 05/19/2022 Cervical spine S/P carpal tunnel release R 1974, L 2003 Status post total right knee replacement 2009 with revision 2019; prior scope in 1963 Pyloric stenosis, congenital s/p surgery as History of appendectomy H/O hernia repair RI repair 2023 Hx of colonoscopy History of cardiac radiofrequency ablation (RFA) elbow surgery Family History Father Heart disease Mother Heart disease Son Seizures Other Hyperlipidemia Hypertension Personal history of malignant neoplasm Social History Smoking/Tobacco Use Status: Former Tobacco Use Smoking risk assessment performed?: Yes Alcohol Intake: never Drug use: Never Substance use type: marijuana Household members: spouse Housing: house Number of Children: 3 current occupation: Furloughed due to COVID Pets and animals: Yes Pets and animals: dog(s) What is your relationship status?: Panel score (0-1 are the most socially isolated patients): 0 What type of physical activity do you participate in: walking and independent ambulation Seatbelt use: always Do you feel safe in your relationship?: Yes
--- NOTE | 2025-05-25 20:56 | DI.CT_ITS ---
Exam(s) CT HEAD CERVICAL SPINE WO EXAM: CT HEAD CERVICAL SPINE WO CLINICAL HISTORY: fall, head strike, xarelto. TECHNIQUE: Imaging Protocol: Axial computed tomography images with coronal and sagittal reformatted images were created and reviewed COMPARISON: CT CT HEAD CERVICAL SPINE WO from 09/21/[address] HEAD WO from 05/22/2025 FINDINGS: Head CT Ventricles and Extra axial spaces: Mild ex vacuo dilatation of the posterior horn of the right lateral ventricle. Unchanged from priors. Hemorrhage: None. Cerebral parenchyma: No evidence of mass or acute infarct. Old right occipital parietal infarct. Midline shift: None. Brainstem/Cerebellum: Normal. Calvarium: Normal. Visualized Paranasal sinuses/Mastoids: Clear. Soft tissues: Unremarkable. Cervical Spine CT BONES: Anterior fusion hardware noted from C4 through C7. Vertebral body heights are maintained. Alignment is normal. There is no evidence of acute fracture. Degenerative disc changes are seen greatest at C 7 T1. Mild facet degenerative changes. SOFT TISSUES: No paraspinal hematoma. The airway appears intact. No pneumothorax is seen at the lung apices. IMPRESSION: Head CT: Old right occipital parietal infarct. No acute abnormality. C-spine CT: Postsurgical and degenerative changes, no acute abnormality. The preliminary [facility] report was reviewed. RADIATION DOSE DELIVERED: Total DLP DATA REPOSITORY: All CT scans at this facility are submitted to the National Radiology Data Registry (NRDR) Dose Index Registry (DIR) with the [employer] (ACR). RADIATION OPTIMIZATION: All CT scans at this facility use at least one of these dose optimization techniques: automated exposure control; mA and/or kV adjustment per patient size (includes targeted exams where dose is matched to clinical indication); or iterative reconstruction.
--- NOTE | 2025-05-25 21:06 | DI.RAD_ITS ---
Exam(s) XR FEMUR RT EXAM: XR FEMUR RT CLINICAL HISTORY: fall, R. pain, hx spine surg and knee replacement. TECHNIQUE: 2D digital imaging was performed. AP and lateral views. COMPARISON: No exams were available for comparison FINDINGS: BONES: No acute fracture is present. No bony destructive lesion is seen. JOINTS: The hip joint space is maintained. There is a right knee prosthesis. SOFT TISSUE: Normal. IMPRESSION: No acute abnormality. The preliminary [facility] report was reviewed. DATA REPOSITORY: RADIATION DOSE DELIVERED:
--- NOTE | 2025-05-25 21:37 | DI.[facility]_ITS ---
PROCEDURE INFORMATION: Exam: CT Head Without Contrast Exam date and time: 05/25/2025 8:19 PM Age: 75 years old Clinical indication: Injury or trauma; Blunt trauma (contusions or hematomas); Consciousness not specified; Injury date: 05/25/25; Prior surgery; Surgery date: 6+ months; Surgery type: Plates in c-spine; Fall, headstrike, xarelto TECHNIQUE: Imaging protocol: Computed tomography of the head without contrast. Radiation optimization: All CT scans at this facility use at least one of these dose optimization techniques: automated exposure control; mA and/or kV adjustment per patient size (includes targeted exams where dose is matched to clinical indication); or iterative reconstruction. COMPARISON: CT HEAD WO 05/22/2025 4:58 PM FINDINGS: Brain: Right occipital encephalomalacia. No intracranial hemorrhage, midline shift, or mass effect. No acute loss of arceo-white differentiation. Cerebral ventricles: Ex vacuo dilatation of the right lateral ventricle posterior horn. Paranasal sinuses: Visualized sinuses are unremarkable. No fluid levels. Mastoid air cells: Visualized mastoid air cells are well aerated. Bones: Unremarkable. No acute fracture. Soft tissues: Unremarkable. IMPRESSION: No acute abnormality. PROCEDURE INFORMATION: Exam: CT Cervical Spine Without Contrast Exam date and time: 05/25/2025 8:19 PM Age: 75 years old Clinical indication: Injury or trauma; Blunt trauma (contusions or hematomas); Consciousness not specified; Injury date: 05/25/25; Prior surgery; Surgery date: 6+ months; Surgery type: Plates in c-spine; Fall, headstrike, xarelto TECHNIQUE: Imaging protocol: Computed tomography of the cervical spine without contrast. Radiation optimization: All CT scans at this facility use at least one of these dose optimization techniques: automated exposure control; mA and/or kV adjustment per patient size (includes targeted exams where dose is matched to clinical indication); or iterative reconstruction. COMPARISON: CT HEAD CERVICAL SPINE WO 09/21/2024 7:22 PM FINDINGS: Bones/joints: Anterior cervical discectomy and fusion at C4-C5 and C5-C6. Severe degenerative disc disease at C6-C7. Mild to moderate multilevel facet arthropathy. No acute fracture or dislocation. C2-C3: Posterior osteophytes and facet arthropathy. Mild right and moderate left neural foraminal stenosis. C3-C4: Posterior osteophytes and facet arthropathy. Moderate right and severe left neural foraminal stenosis. C4-C5: Facet arthropathy. Mild left neuroforaminal stenosis. C5-C6: Facet arthropathy. Mild right neural foraminal stenosis. C6-C7: Posterior osteophytes and facet arthropathy. Moderate right and mild left neuroforaminal stenosis. C7-T1: No significant disc bulge or herniation. No severe spinal canal stenosis. No significant neural foraminal narrowing. Lungs: Lung apices are normal. Soft tissues: Unremarkable. IMPRESSION: No acute fracture. Dictated and Authenticated by: Librado Vilchis MD. Orderin [facility] Carpio MD
--- NOTE | 2025-05-25 22:20 | DI.[facility]_ITS ---
PROCEDURE INFORMATION: Exam: CT Thoracic Spine Without Contrast Exam date and time: 05/25/2025 8:25 PM Age: 75 years old Clinical indication: Injury or trauma; Fall; Blunt trauma (contusions or hematomas); Injury date: 05/25/25; Prior surgery; Surgery date: 6+ months; Surgery type: Plates in c-spine TECHNIQUE: Imaging protocol: Computed tomography of the thoracic spine without contrast. Radiation optimization: All CT scans at this facility use at least one of these dose optimization techniques: automated exposure control; mA and/or kV adjustment per patient size (includes targeted exams where dose is matched to clinical indication); or iterative reconstruction. COMPARISON: CT THORACIC LUMBAR SPINE REC 09/21/2024 7:26 PM FINDINGS: Bones/joints: No acute fracture. Normal alignment. No significant disc bulge or herniation. No severe spinal canal stenosis. No significant neural foraminal narrowing. Soft tissues: Unremarkable. IMPRESSION: No acute thoracic spine fracture. PROCEDURE INFORMATION: Exam: CT Lumbar Spine Without Contrast Exam date and time: 05/25/2025 8:25 PM Age: 75 years old Clinical indication: Injury or trauma; Fall; Blunt trauma (contusions or hematomas); Injury date: 05/25/25; Prior surgery; Surgery date: 6+ months; Surgery type: Plates in c-spine TECHNIQUE: Imaging protocol: Computed tomography of the lumbar spine without contrast. Radiation optimization: All CT scans at this facility use at least one of these dose optimization techniques: automated exposure control; mA and/or kV adjustment per patient size (includes targeted exams where dose is matched to clinical indication); or iterative reconstruction. COMPARISON: CT THORACIC LUMBAR SPINE REC 09/21/2024 7:26 PM FINDINGS: Bones/joints: No acute fracture. Postsurgical changes noted in the lumbar spine with suggestion of prior discectomy and posterior decompression. Prior pedicle screws have been removed. Soft tissues: Unremarkable. IMPRESSION: No acute lumbar spine fracture. Dictated and Authenticated by: Aaliyah Sanchez MD. Orderin [facility] Carpio MD
--- NOTE | 2025-05-25 22:26 | DI.[facility]_ITS ---
PROCEDURE INFORMATION: Exam: XR Pelvis Exam date and time: 05/25/2025 8:42 PM Age: 75 years old Clinical indication: Injury or trauma; Blunt trauma (contusions or hematomas); Right; Hip; Injury date: 05/25/25; Prior surgery; Surgery date: 6+ months; Surgery type: Knee replacement, c-spine plates; Fall, R. Pain, HX spine surg and knee replacement TECHNIQUE: Imaging protocol: Radiologic exam of the pelvis. Views: 1 or 2 view. COMPARISON: CT CHEST/ABD/PEL W 09/21/2024 7:26 PM FINDINGS: Bones/joints: No fracture or dislocation. Degenerative changes in the lower lumbar spine. Soft tissues: Unremarkable. Gastrointestinal tract: Heavy stool load. IMPRESSION: No acute findings. Dictated and Authenticated by: Tasneem Curry MD. Orderin [facility] Carpio MD
--- NOTE | 2025-05-25 22:28 | DI.[facility]_ITS ---
PROCEDURE INFORMATION: Exam: XR Right Femur Exam date and time: 05/25/2025 8:52 PM Age: 75 years old Clinical indication: Injury or trauma; Blunt trauma; Hip and thigh or upper leg and knee; Right; Injury date: 05/25/25; Prior surgery; Surgery date: 6+ months; Fall, R. Pain, HX spine surg and knee replacement TECHNIQUE: Imaging protocol: Radiologic exam of the right femur. Views: 2 views. COMPARISON: CR XR KNEE RT 3V AP,LAT,PAULA 05/25/2025 8:44 PM FINDINGS: Bones/joints: Total knee replacement good position. No fracture. No dislocation. No joint space collection seen. Soft tissues: Unremarkable. IMPRESSION: No acute findings. Dictated and Authenticated by: Tasneem Curry MD. Orderin [facility] E[facility] Carpio MD
--- NOTE | 2025-05-25 22:28 | DI.VRAD_ITS ---
PROCEDURE INFORMATION: Exam: XR Right Knee Exam date and time: 05/25/2025 8:44 PM Age: 75 years old Clinical indication: Injury or trauma; Blunt trauma; Hip and thigh or upper leg and knee; Right; Injury date: 05/25/25; Prior surgery; Surgery date: 6+ months; Fall, R. Pain, HX spine surg and knee replacement TECHNIQUE: Imaging protocol: Radiologic exam of the right knee. Views: 3 views. COMPARISON: CR XR KNEE RT 3V AP,LAT,PAULA 07/24/2024 5:44 PM FINDINGS: Bones/joints: Total knee replacement in good position. No evidence of loosening. No acute fracture. No joint space collection seen. Soft tissues: Normal. IMPRESSION: No acute findings. Dictated and Authenticated by: Tasneem Curry MD. Orderin St. Eder Carpio MD
--- NOTE | 2025-05-25 22:29 | DI.VRAD_ITS ---
PROCEDURE INFORMATION: Exam: XR Left Elbow Exam date and time: 05/25/2025 9:05 PM Age: 75 years old Clinical indication: Injury or trauma; Blunt trauma (contusions or hematomas); Elbow; Left; Injury date: 05/25/25; Fall, pain and swelling TECHNIQUE: Imaging protocol: Radiologic exam of the left elbow. Views: 3 or more views. COMPARISON: No relevant prior studies available. FINDINGS: Bones/joints: No fracture or dislocation. No joint space collection seen. Soft tissues: Normal. IMPRESSION: No acute findings. Dictated and Authenticated by: Tasneem Curry MD. Orderin St. Eder Carpio MD
[2025-05-25 23:11] VITALS: PULSE 78; O2SAT 99
--- NOTE | 2025-06-25 11:59 | NUR.NOTE ---
Access chart to print the provider note and the radiology report to fax to [facility] for billing purposes. Nursing Note:
== END 2025-05-25 23:12 | disposition home or self-care (01) ==
PROVIDERS: Emergency Provider Emergency Medicine; PCP Family Medicine
DX: M25.561 Pain in right knee (principal); M54.50 Low back pain, unspecified; M25.551 Pain in right hip; I48.0 Paroxysmal atrial fibrillation; I10 Essential (primary) hypertension; E78.5 Hyperlipidemia, unspecified; Z86.73 Personal history of transient ischemic attack (TIA), and cerebral infarction without residual deficits; Z98.1 Arthrodesis status; Z96.651 Presence of right artificial knee joint; Z79.01 Long term (current) use of anticoagulants; Z87.891 Personal history of nicotine dependence; W01.0XXA Fall on same level from slipping, tripping and stumbling without subsequent striking against object, initial encounter; Y93.01 Activity, walking, marching and hiking; Y92.018 Other place in single-family (private) house as the place of occurrence of the external cause
CPT/HCPCS: 73552; 73562; 99284; 70450; 72125; 72128; 72131; 72170; 73080

== ENCOUNTER 2025-07-26 13:35 | Emergency (ER) | payer MEDICARE, SELFPAY ==
[2025-07-26] VITALS (14 sets, daily range): BP systolic 176–206; BP diastolic 82–153; PULSE 48–85; RESP 13–21; TEMP 36.7; O2SAT 98–99
--- NOTE | 2025-07-26 13:30 | RT.EKG_ITS ---
APPROVED REPORT Exam: Resting ECG Reason for Exam: Chest Pain Patient Location: E HR:51 bpm ECG Measurements Heart Rate 51 AXIS WY 181 P 80 QRSd 148 QRS -69 QT 437 T 40 QTc 404 Conclusion Sinus bradycardia...rate< 60 RBBB and LAFB...QRSd >120mS, axis(-40,240) I have reviewed and interpreted ECG and agree with software generated interpretation.
--- NOTE | 2025-07-26 14:00 | DI.RAD_ITS ---
Exam(s) XR CHEST 2V PA LATERAL EXAM: XR CHEST 2V PA LATERAL CLINICAL HISTORY: chest pain TECHNIQUE: 2D digital imaging was performed of the chest. Two images were obtained. PA and lateral views were obtained. COMPARISON: CR CHEST 2 VIEWS PA,LAT from 01/17/2017 CR THORACIC SPINE from 04/05/2017 FINDINGS: There are low lung volumes. MEDIASTINUM: Normal. HEART: Normal. PULMONARY VASCULATURE: Normal. LUNGS: There is an opacity in the lateral aspect of the left lung base probably in the lower lobe. The right lung is clear. PLEURAL SPACE: No pleural effusion or pneumothorax. BONE:Within normal limits for the patient's age. OTHER FINDINGS:Normal. IMPRESSION: Opacity in the left lower lobe. This may represent pneumonia or atelectasis. A follow-up examination to document complete resolution is recommended in this patient. DATA REPOSITORY: RADIATION DOSE DELIVERED:
[2025-07-26 14:37] LABS: Abs Immature Grans 0.02 10^3/uL (0.0-0.06); HCT 41.4 % (40.0-50.0); HGB 14.0 g/dL (13.5-17.5); Immature Grans % 0.4 %; MCH 30.8 pg (27.0-33.0); MCHC 33.8 % (32.0-36.0); MCV 91 fL (80-95); MPV 11.6 fL (8.0-11.0); RBC 4.54 10^6/uL (4.36-5.78); RDW 12.4 % (11.8-14.1); RDW-SD 41.1 fL; WBC 4.56 10^3/uL (4.4-10.8)
[2025-07-26 14:52] LABS: Platelet Count 92 10^3/uL (130-400); RBC Morphology Normal
--- NOTE | 2025-07-26 15:10 | DI.RAD_ITS ---
Exam(s) XR CHEST 2V PA LATERAL EXAM: XR CHEST 2V PA LATERAL CLINICAL HISTORY: chest pain TECHNIQUE: 2D digital imaging was performed. Two views. COMPARISON: No exams were available for comparison FINDINGS: HEART: Normal size. Aorta: Not dilated. PULMONARY VASCULATURE: Normal. MEDIASTINUM: Unremarkable. LUNGS: Clear. PLEURAL SPACE: No pleural effusion or pneumothorax. BONE:Unremarkable for age. SOFT TISSUES: Recorder device is noted in the anterior left chest. IMPRESSION: No acute abnormality. DATA REPOSITORY: RADIATION DOSE DELIVERED:
[2025-07-26 15:36] LABS: ALT 36 U/L (16-63); AST 48 U/L (15-37); Albumin 3.5 g/dL (3.4-5.0); Alkaline Phosphatase 99 U/L (46-116); Anion Gap 6.6 mmol/L (3-11); BUN 22 mg/dL (7-18); Bilirubin, Total 0.7 mg/dL (0.2-1.0); CO2 28.4 mmol/L (21.0-32.0); Calcium 9.0 mg/dL (8.5-10.1); Chloride 106 mmol/L (98-107); Estimated GFR 70.88 (mL/min/1.73m2); Glucose 91 mg/dL (74-106); Magnesium 1.9 mg/dL (1.8-2.4); Potassium 4.1 mmol/L (3.5-5.1); Sodium 141 mmol/L (136-145); TSH (W/Ref FT4) 1.02 uIU/mL (0.36-3.74); Total Protein 6.7 g/dL (6.4-8.2); Troponin I 11 ng/L (<or=76)
--- NOTE | 2025-07-26 15:45 | W.ED.GENAD ---
Discharge Plan Disposition Patient Disposition: Home Condition: Stable Discharge Details Clinical Impression: Chest pain, Heart palpitations Primary Care Provider: Radha Mckeon V ED Provider: Darleen Dotson Home Meds and New Rx's Prescriptions: Continued oxycodone 15 mg tablet 5 - 10 mg PO Q4H PRN lidocaine-prilocaine 2.5-2.5 % cream 1 applic topical ONCE PRN magnesium hydroxide [Milk of Magnesia] 400 mg/5 mL suspension 5 ml PO DAILY PRN polyethylene glycol 3350 17 gram/dose powder 17 g PO DAILY PRN simvastatin 10 mg tablet 10 mg PO DAILY sumatriptan succinate 100 mg tablet See Rx Instructions PO .COMPLEX Rx Instructions: take 1 tab at onset of headache; if no relief, may repeat 1 tab after at least 2 hrs; max = 2 tabs/24 hrs PO sumatriptan 20 mg/actuation spray,non-aerosol 20 mg intranasal ONCE PRN Rx Instructions: administer into one nostril as a single dose zonisamide 50 mg capsule 50 mg PO DAILY baclofen 10 mg Tablet 10 mg PO DAILY triamcinolone acetonide 0.1 % Ointment 1 applic TOPICAL TID fluticasone propionate [Flonase Allergy Relief] 50 mcg/actuation [place],Suspension 1 spray INTRANASAL BID Centrum Silver 0.4-300-250 mg-mcg-mcg Tablet 1 tab PO DAILY Xarelto 20 mg Tablet 20 mg PO DAILY lamotrigine 25 mg tablet 50 mg PO BID metoprolol succinate [Toprol XL] 100 mg tablet extended release 24 hr 100 mg PO DAILY acyclovir 200 mg capsule 200 mg PO DAILY PRN Rx Instructions: as directed sennosides-docusate sodium [Colace 2-In-1] 8.6-50 mg tablet 2 tab-cap PO DAILY PRN diclofenac sodium 1 % gel 1 g topical DAILY PRN tamsulosin 0.4 mg capsule 0.4 mg PO DAILY valacyclovir 500 mg tablet 500 mg PO DAILY PRN finasteride 5 mg tablet 5 mg PO DAILY gabapentin 300 mg capsule 300 mg PO DAILY acetaminophen 500 MG tablet 500 mg PO PRN PRN levothyroxine 200 MCG tablet 100 mcg PO DAILY verapamil [Calan] 120 MG tablet 120 mg PO HS Discharge Instructions Instructions: Chest Pain (DC), Palpitations (DC) Additional Instructions: Please follow-up with your primary care physician tomorrow and [facility] cardiology for your stress test that is scheduled Continue on all your prescribed medications Should you develop worsening pain, persistent symptoms, or should any new concerns arise please return immediately for reassessment Referrals: Radha Mckeon MD [Primary Care Provider, Medicine] Discharge Data Discharge Date/Time-TO BE ENTERED AT DEPARTURE: 07/26/25 16:08 HPI General Date/Time Provider Initiated Documentation: 07/26/25 13:45. HPI Narrative: This 75-year-old male presents with report of chest pain 2 days ago in the evening at rest followed by an episode of palpitations yesterday evening with pressure. He states that he called his coater carbon paper today and they recommended evaluation in the emergency department. He states he is currently asymptomatic. He does have a loop recorder in place. He denies any history of coronary artery disease he takes metoprolol for history of paroxysmal atrial fibrillation and SVT control. He is also on Xarelto. He takes all of his medications regularly and did take his medications this morning. He denies any recent flights, surgeries, long drives or history of DVT or PE. He denies known exacerbating or alleviating factors. He walks 3 to 5 miles a day and states that he has felt fine doing this. Related Data Home Medications ?Medication ?Instructions ?Recorded ?Confirmed acetaminophen 500 mg tablet 500 mg PO PRN PRN 01/16/17 05/25/25 levothyroxine 200 mcg tablet 100 mcg PO DAILY 01/16/17 05/25/25 verapamil 120 mg tablet (Calan) 120 mg PO HS 01/18/17 05/25/25 baclofen 10 mg tablet 10 mg PO DAILY 04/03/20 05/25/25 fluticasone propionate 50 1 spray intranasal BID 04/03/20 05/25/25 mcg/actuation nasal spray,suspension (Flonase Allergy Relief) [id number]-[id number] acid 0.4 1 tab PO DAILY 04/03/20 05/25/25 mg-lycopene 300 mcg-lutein 250 mcg tablet (Centrum Silver) rivaroxaban 20 mg tablet (Xarelto) 20 mg PO DAILY 04/03/20 05/25/25 triamcinolone acetonide 0.1 % 1 applic topical TID 04/03/20 05/25/25 topical ointment lamotrigine 25 mg tablet 50 mg PO BID 08/12/20 05/25/25 finasteride 5 mg tablet 5 mg PO DAILY 04/09/23 05/25/25 acyclovir 200 mg capsule 200 mg PO DAILY PRN 04/11/24 05/25/25 diclofenac sodium 1 % topical gel 1 g topical DAILY PRN 04/11/24 05/25/25 metoprolol succinate 100 mg 100 mg PO DAILY 04/11/24 05/22/25 tablet,extended release 24 hr (Toprol XL) sennosides 8.6 mg-docusate sodium 2 tab-cap PO DAILY PRN 04/11/24 05/25/25 50 mg tablet (Colace 2-In-1) tamsulosin 0.4 mg capsule 0.4 mg PO DAILY 04/11/24 05/25/25 valacyclovir 500 mg tablet 500 mg PO DAILY PRN 04/11/24 05/25/25 lidocaine-prilocaine 2.5 %-2.5 % 1 applic topical ONCE PRN 06/22/24 05/25/25 topical cream magnesium hydroxide 400 mg/5 mL 5 ml PO DAILY PRN 06/22/24 05/25/25 oral suspension (Milk of [employer]) oxycodone 15 mg tablet 5 - 10 mg PO Q4H PRN 06/22/24 05/25/25 polyethylene glycol 3350 17 17 g PO DAILY PRN 06/22/24 05/25/25 gram/dose oral powder simvastatin 10 mg tablet 10 mg PO DAILY 06/22/24 05/25/25 sumatriptan 20 mg/actuation nasal 20 mg intranasal ONCE PRN 06/22/24 05/25/25 spray sumatriptan succinate 100 mg tablet See Rx Instructions PO .COMPLEX 06/22/24 05/25/25 zonisamide 50 mg capsule 50 mg PO DAILY 06/22/24 05/22/25 gabapentin 300 mg capsule 300 mg PO DAILY 05/22/25 05/25/25 Allergies Allergy/AdvReac Type Severity Reaction Status Date / Time zolpidem (From Ambien) Allergy Severe altered Verified 05/22/25 16:26 mental status amitriptyline AdvReac Other (See Verified 05/22/25 16:26 Comment) atorvastatin (From Lipitor) AdvReac Other (See Verified 05/22/25 16:26 Comment) flecainide AdvReac Other (See Verified 05/22/25 16:26 Comment) General Stated Complaint: Arrhythmia ROSALIO: 3 Exam Narrative Exam Narrative: Alert and oriented 75-year-old male in no acute distress cardiac rate rhythm regular no peripheral edema lungs clear to auscultation no respiratory distress mentation intact Course Vital Signs Vital signs: Vital Signs Temperature 36.7 C 07/26/25 13:37 Pulse 63 07/26/25 13:37 Respiratory Rate 20 07/26/25 13:37 Blood Pressure 197/91 H 07/26/25 13:37 Pulse Oximetry 98 07/26/25 13:37 Temperature 36.7 C 07/26/25 13:37 Temperature Source Oral 07/26/25 13:37 Pulse 67 07/26/25 14:32 Pulse 85 07/26/25 14:32 Respiratory Rate 19 07/26/25 14:32 Blood Pressure 186/96 H 07/26/25 14:32 Blood Pressure Mean 117 07/26/25 14:32 Blood Pressure Position Sitting 07/26/25 13:37 Pulse Oximetry 98 07/26/25 14:23 Oxygen Delivery Method Room Air 07/26/25 13:37 Oxygen Flow Rate 0 07/26/25 13:37 Pain Level 0 07/26/25 13:37 Lab/Test Results Lab/Test Results: Laboratory Tests Range/Units 07/26/25 14:19 WBC (4.4-10.8) 10^3/uL 4.56 RBC (4.36-5.78) 10^6/uL 4.54 Hgb (13.5-17.5) g/dL 14.0 Hct (40.0-50.0) % 41.4 MCV (80-95) fL 91 MCH (27.0-33.0) pg 30.8 MCHC (32.0-36.0) % 33.8 RDW (11.8-14.1) % 12.4 Plt Count (130-400) 10^3/uL 92 L MPV (8.0-11.0) fL 11.6 H Immature Gran % % 0.4 Neutrophils % % 68.0 Lymphocytes % % 15.1 Monocytes % % 14.0 Eosinophils % % 1.8 Basophils % % 0.7 Nucleated RBC % (0.0-0.3) % 0.0 Absolute Neutrophils (1.2-6.7) 10^3/uL 3.10 Absolute Lymphocytes (1.2-3.4) 10^3/uL 0.69 L Absolute Monocytes (0.1-0.8) 10^3/uL 0.64 Absolute Eosinophils (0.0-0.7) 10^3/uL 0.08 Absolute Basophils (0.0-0.2) 10^3/uL 0.03 RBC Morphology Normal Sodium (136-145) mmol/L 141 Potassium (3.5-5.1) mmol/L 4.1 Chloride (98-107) mmol/L 106 Carbon Dioxide (21.0-32.0) mmol/L 28.4 Anion Gap (3-11) mmol/L 6.6 BUN (7-18) mg/dL 22 H Creatinine (0.70-1.30) mg/dL 1.1 Est GFR (CKD-EPI 2020) (mL/min/1.73m2) 70.88 Glucose (74-106) mg/dL 91 Calcium (8.5-10.1) mg/dL 9.0 Magnesium (1.8-2.4) mg/dL 1.9 Total Bilirubin (0.2-1.0) mg/dL 0.7 AST (15-37) U/L 48 H ALT (16-63) U/L 36 Alkaline Phosphatase (46-116) U/L 99 Troponin I (<or=76) ng/L 11 Total Protein (6.4-8.2) g/dL 6.7 Albumin (3.4-5.0) g/dL 3.5 TSH (0.36-3.74) uIU/mL 1.02 Medical Decision Making Results: CBC and CMP without acute abnormality initial troponin 11, pending repeat troponin level. Chest x-ray per radiology interpretation of my review does not show acute abnormality thrombocytopenia, platelet count of 92 consistent with prior AST of 48, similar to prior Assessment and plan: Patient presenting with chest pain 2 days ago with an episode of what felt like SVT palpitations yesterday. He has been asymptomatic today in fact he came into work but did speak with cardiology about his loop recorder today and they recommended he be evaluated in the emergency department for chest pain. His results including EKG are reassuring and has been observed on telemetry without obvious dysrhythmia noted. He is pending repeat troponin at this time and if his 1 hour troponin is negative given that he has had no chest discomfort or palpitations today I think he is reasonable for discharge home with close outpatient follow-up with cardiology at [facility]. He is encouraged to call them tomorrow. PFSH All Active Problems (Updated 07/26/25 @ 15:50 by ANDREE Meza) Heart palpitations (Acute) Chest pain (Acute) Chronic headache (Acute) Migraine headache with aura (Acute) Migraine headache without aura (Acute) Vertigo (Acute) Migraine aura without headache (Acute) Esophagitis determined by biopsy (Acute) Medical History (Updated 07/26/25 @ 15:50 by ANDREE Meza) History of pacemaker Senile hyperkeratosis Hemospermia Pain in finger of right hand Trigeminal neuralgia Pain of right lower extremity Right arm pain Paroxysmal atrial fibrillation Sore throat [place] Adjustment disorder Asymptomatic microscopic hematuria Trigger finger of left hand CHACORTA positive History of chest pain Abdominal tenderness, right lower quadrant Inguinal hernia Rhinorrhea Disorder of skin CVA (cerebral vascular accident) Diverticulosis Headache Nonalcoholic fatty liver disease Left shoulder pain Dizziness Chronic insomnia Right shoulder pain Right hand pain Left foot pain Right knee pain Partial motor seizures Anticoagulation management encounter Migraine Disorder of vestibular function of right ear Left cervical radiculopathy Implantable loop recorder present Thyroid disorder Chronic low back pain Left arm pain Epistaxis Memory loss Bitten by rat Pain of right thumb Seborrheic keratosis Abnormal sputum Nausea and vomiting Diarrhea Thoracic back pain Depression Tobacco abuse Diverticulosis of colon Hyperlipidemia Chronic pain syndrome History of tobacco abuse Fatigue Fatty liver HSV (herpes simplex virus) infection Gastritis Preoperative examination Multiple nevi Hypothyroidism Ankle pain, right Family problems Memory impairment Nephrolithiasis Insomnia Thrombocytopenia Peripheral neuropathy Sinusitis Anticoagulated Trigger finger, right middle finger Hypertension Steatohepatitis GERD (gastroesophageal reflux disease) Chronic back pain Atrial fibrillation s/p ablation Arthritis Surgical History History of tonsillectomy and adenoidectomy H/O cardiac radiofrequency ablation S/P bunionectomy bilateral 2020 S/P spinal surgery 1993 L5-S1 fusion 1995 Lf-S1 repeat fusion 1998 hardware removal 05/19/2022 Cervical spine S/P carpal tunnel release R 1974, L 2003 Status post total right knee replacement 2009 with revision 2019; prior scope in 1964 Pyloric stenosis, congenital s/p surgery as infant History of appendectomy H/O hernia repair RIH repair 2023 Hx of colonoscopy History of cardiac radiofrequency ablation (RFA) elbow surgery Family History Father Heart disease Mother Heart disease Son Seizures Other Hyperlipidemia Hypertension Personal history of malignant neoplasm Social History Smoking/Tobacco Use Status: Former Tobacco Use Smoking risk assessment performed?: Yes Alcohol Intake: never Drug use: Never Substance use type: marijuana Household members: spouse Housing: house Number of Children: 3 current occupation: Furloughed due to COVID Pets and animals: Yes Pets and animals: dog(s) What is your relationship status?: Panel score (0-1 are the most socially isolated patients): 0 What type of physical activity do you participate in: walking and independent ambulation Seatbelt use: always Do you feel safe in your relationship?: Yes
[2025-07-26 15:46] LABS: Troponin I 13 ng/L (<or=76)
--- NOTE | 2025-08-01 10:24 | NUR.NOTE ---
Access chart to reconcile EKG orders with EKG's in [employer]. 1 read, 1 order cancelled and 1 order in ordered status. Nursing Note:
== END 2025-07-26 16:08 | disposition home or self-care (01) ==
PROVIDERS: Emergency Provider Physician Assistant; PCP Family Medicine
DX: R07.9 Chest pain, unspecified (principal); R00.2 Palpitations; I10 Essential (primary) hypertension
CPT/HCPCS: 99284 ×2; 36415; 80053; 93005; 71046; 83735; 84443; 84484; 85025; 93010

== ENCOUNTER → 2025-08-30 18:27 | Outpatient (REF) | payer MEDICARE, SELFPAY ==
--- NOTE | 2025-08-30 | DI.RAD_ITS ---
Exam(s) XR THORACIC SPINE COMPLETE EXAM: XR THORACIC SPINE COMPLETE CLINICAL HISTORY: acute or chronic low back pain ICD-210: M54.50. TECHNIQUE: 2D digital imaging was performed. COMPARISON: No exams were available for comparison FINDINGS: 3 views No evidence of acute fracture or listhesis nor significant disc space narrowing. Incidentally noted is evidence of previous fusion surgery in the lower cervical spine with tri level fusion plate at this level evident. There is no abnormal widening of the paraspinal lines in the thoracic spinal column and there is no scoliosis. Bone density normal. No osseous lesions. IMPRESSION: No acute osseous findings in the thoracic spinal column. DATA REPOSITORY: RADIATION DOSE DELIVERED:
--- NOTE | 2025-08-30 19:00 | DI.RAD_ITS ---
Exam(s) XR LUMBAR SPINE COMPLETE EXAM: XR LUMBAR SPINE COMPLETE CLINICAL HISTORY: low back pain, unspecified ; G88.29. TECHNIQUE: 2D digital imaging was performed. COMPARISON: No exams were available for comparison FINDINGS: Five views No evidence of acute fracture or listhesis. No pars defects. There is evidence of prior bone graft fusion at L5-S1 level. Other disc spaces exhibit preserved height. There are no compression fractures. Moderate facet arthropathy. No facet malalignment. SI joints appear unremarkable. There is no scoliosis. No osseous lesions. IMPRESSION: No acute osseous findings. Evidence of prior spinal fusion surgery L5-S1 DATA REPOSITORY: RADIATION DOSE DELIVERED:
--- NOTE | 2025-08-30 19:38 | DI.VRAD_ITS ---
PROCEDURE INFORMATION: Exam: XR Thoracic Spine Exam date and time: 08/30/2025 6:48 PM Age: 75 years old Clinical indication: Pain and injury or trauma; Fall; Blunt trauma (contusions or hematomas); Pain in thoracic spine; Prior surgery; Surgery date: 6+ months; Surgery type: Spinal fusion TECHNIQUE: Imaging protocol: Radiologic exam of the thoracic spine. Views: 3 views. Total images: 3 COMPARISON: CT THORACIC LUMBAR SPINE WO 05/25/2025 8:25 PM FINDINGS: Bones/joints: Anterior fusion in the cervical spine. No definite thoracic compression fracture. Soft tissues: Unremarkable. IMPRESSION: No definite fracture by plain film. Dictated and Authenticated by: Pavel Walker MD. Orderin Blaise Kim MD
--- NOTE | 2025-08-30 19:39 | DI.VRAD_ITS ---
PROCEDURE INFORMATION: Exam: XR Lumbosacral Spine Exam date and time: 08/30/2025 6:46 PM Age: 75 years old Clinical indication: Pain and injury or trauma; Fall; Blunt trauma (contusions or hematomas); Low back pain; Injury date: 08/27/25; Prior surgery; Surgery date: 6+ months; Surgery type: Spinal fusion l5-s1 TECHNIQUE: Imaging protocol: Radiologic exam of the lumbosacral spine. Views: 4 or 5 views. Total images: 10 COMPARISON: CT THORACIC LUMBAR SPINE WO 05/25/2025 8:25 PM FINDINGS: Bones/joints: No acute fracture. No significant malalignment. L5-S1 fusion with significant paraspinal ossification. Multilevel endplate spondylosis. Soft tissues: Unremarkable. IMPRESSION: No acute fracture. Dictated and Authenticated by: Pavel Walker MD. Orderin Blaise Kim MD
== END ==
LOC: DI 18:27
PROVIDERS: PCP Family Medicine; Visit Provider Physician Assistant Medical
DX: M54.50 Low back pain, unspecified (principal); Z98.890 Other specified postprocedural states
CPT/HCPCS: 72072; 72110